=== PATIENT | male | born 1945 | race Caucasian/White ===

== ENCOUNTER 2023-04-30 10:03 | Outpatient (OUT) | payer MEDICARE, SELFPAY ==
[2023-04-30 11:01] LABS: Anion Gap 10.9; BUN Creatinine Ratio 17.6; Calcium 9.7 mg/dL (8.5-10.1); Chloride 100 mmol/L (98-107); Estimated GFR (African America >60 (>=60); Estimated GFR (Non-African Ame >60 (>=60); Glucose 111 mg/dL (74-106); Potassium 3.9 mmol/L (3.5-5.1); Sodium 136 mmol/L (136-145)
[2023-04-30 14:35] LABS: Estimated Average Glucose 120 mg/dL; Glycohemoglobin A1C 5.8 % (4.5-6.2)
== END 2023-04-30 10:04 | disposition home or self-care (01) ==
LOC: LAB 10:11
PROVIDERS: PCP Internal Medicine; Visit Provider Internal Medicine
DX: I10 Essential (primary) hypertension (principal); R73.01 Impaired fasting glucose
CPT/HCPCS: 36415; 80048; 83036

== ENCOUNTER 2023-05-03 10:56 | Outpatient (OUT) | payer MEDICARE, SELFPAY ==
--- NOTE | 2023-05-03 10:58 | US_ITS ---
The [address] [address] Patient Name: RIDGE ROLAND MRN: [id number] date: 1945 Sex: M Assigned Patient Location: [place] Current Patient Location: [place] Accession/Order Number: [id number] Exam Date: 05/03/2023 11:00 Report Date: 05/03/2023 11:47 At the request of: DOROTHY HALL Procedure: US thyroid EXAMINATION: US thyroid HISTORY: THYROID CYST E04.1 COMPARISON: No relevant comparison available. TECHNIQUE: Sonographic images of the thyroid gland were obtained. FINDINGS: The right thyroid lobe measures 4.8 x 1.8 x 1.7 cm. 3 focal subcentimeter nodules measuring up to 7 mm. The most suspicious: Right inferior. 0.7 x 0.6 x 0.5 cm. Solid, hyperechoic, wide, smooth margins, no calcifications. TR 3 The thyroid isthmus measures 2.1 mm, homogeneous. The left thyroid lobe is normal in size, contour and echotexture measuring 5.3 x 1.7 x 1.7 cm No focal nodules IMPRESSION: 7 mm right thyroid TR 3 nodule. No follow-up is required TI-RADS: The [employer] TI-RADS committee's white paper recommendations for thyroid lesions classified as TR3 (mildly suspicious) are listed below: > 1.5 cm. Follow-up ultrasound in 1, 3, and 5 years. > 2.5 cm. FNA. J. Am Madelaine Radiol 2017;[id number]. Electronically authenticated by: ELIZA THAO Date: 05/03/2023 11:47
== END 2023-05-03 10:57 | disposition home or self-care (01) ==
LOC: US 10:56
PROVIDERS: PCP Internal Medicine; Visit Provider Internal Medicine
DX: E04.1 Nontoxic single thyroid nodule (principal)
CPT/HCPCS: 76536

== ENCOUNTER 2023-10-24 13:28 | Outpatient (OUT) | payer MEDICARE, SELFPAY ==
[2023-10-24 14:04] LABS: Estimated Average Glucose 123 mg/dL; Glycohemoglobin A1C 5.9 % (4.5-6.2)
[2023-10-24 14:08] LABS: Anion Gap 11.3; Calcium 9.8 mg/dL (8.5-10.1); Carbon Dioxide 29.6 mmol/L (21.0-32.0); Chloride 99 mmol/L (98-107); Estimated GFR (African America >60 (>=60); Estimated GFR (Non-African Ame >60 (>=60); Glucose 104 mg/dL (74-106); Potassium 3.9 mmol/L (3.5-5.1); Sodium 136 mmol/L (136-145); Thyroid Stimulating Hormone 1.622 uIU/mL (0.358-3.740)
[2023-10-24 14:23] LABS: Basophils Absolute Auto 0.1 10^3/uL (0.0-0.1); Basophils Percent Auto 0.7 % (0.2-2.0); Eosinophils Absolute Auto 0.1 10^3/uL (0.0-0.7); Eosinophils Percent Auto 1.2 % (0.9-7.0); Hematocrit 46.6 % (42.0-54.0); Hemoglobin 15.6 g/dL (14.0-18.0); Immature Granulocytes Abs Auto 0.03 10^3/uL (0.00-0.03); Immature Granulocytes Pct Auto 0.4 % (0.0-0.5); Lymphocytes Absolute Auto 1.7 10^3/uL (1.2-3.8); Lymphocytes Percent Auto 23.6 % (20.5-60.0); Mean Corpuscular HGB Conc 33.5 g/dL (29.9-35.2); Mean Corpuscular Hemoglobin 31.1 pg (25.9-34.0); Mean Platelet Volume 10.9 fL (9.5-13.5); Monocytes Absolute Auto 0.7 10^3/uL (0.3-0.8); Monocytes Percent Auto 9.5 % (1.7-12.0); Neutrophils Absolute Auto 4.7 10^3/uL (1.4-6.5); Neutrophils Percent Auto 64.6 % (43.0-75.0); Platelet Count 218 10^3/uL (150-450); Red Blood Count 5.01 10^6/uL (4.70-6.10); Red Cell Distribution Width 13.5 % (11.0-15.0); White Blood Count 7.3 10^3/uL (4.0-11.0)
== END 2023-10-24 13:29 | disposition home or self-care (01) ==
LOC: LAB 13:30
PROVIDERS: PCP Internal Medicine; Visit Provider Internal Medicine
DX: R63.4 Abnormal weight loss (principal); R73.01 Impaired fasting glucose; I10 Essential (primary) hypertension; R53.83 Other fatigue
CPT/HCPCS: 36415; 80048; 83036; 84443; 85025

== ENCOUNTER 2023-12-24 09:37 | Emergency (ER) | payer MEDICARE, SELFPAY ==
[2023-12-24] VITALS (19 sets, daily range): BP systolic 153; BP diastolic 94; PULSE 60–82; RESP 8–23; TEMP 36.8; O2SAT 99; BMI 31.6
--- OUTSIDE RECORDS SUMMARY | 2023-12-24 09:47 | XMS_ITS | CCD ---
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 factors, such as anxiety, stress, or post-traumatic stress disorder (PTSD). ? Spinal cord injury, nerve injury, or other neurological conditions. ? Pelvic organ prolapse. This happens in women when organs move out of place and into the vagina. This movement can prevent the bladder and urethra from working properly. What increases the risk? The following factors may make you more likely to develop this condition: ? Age. The older you are, the higher the risk. ? Obesity. ? Being physically inactive. ? and childbirth. ? Menopause. ? Diseases that affect the nerves or spinal cord. ? Long-term, or chronic, coughing. This can increase pressure on the bladder and pelvic floor muscles. What are the signs or symptoms? Symptoms may vary depending on the type of urinary incontinence you have. They include: ? A sudden urge to urinate, and passing urine involuntarily before you can get to a bathroom (urge incontinence). ? Suddenly passing urine when doing activities that force urine to pass, such as coughing, laughing, exercising, or sneezing (stress incontinence). ? Needing to urinate often but urinating only a small amount, or constantly dribbling urine (overflow incontinence). ? Urinating because you cannot get to the bathroom in time due to a physical disability, such as arthritis or injury, or due to a communication or thinking problem, such as Alzheimer's disease (functional incontinence). How is this diagnosed? This condition may be diagnosed based on: ? Your medical history. ? A physical exam. ? Tests, such as: ? Urine tests. ? X-rays of your kidney and bladder. ? Ultrasound. ? CT scan. ? Cystoscopy. In this procedure, a health care provider inserts a tube with a light and camera (cystoscope) through the urethra and into the bladder to check for problems. ? Urodynamic testing. These tests assess how well the bladder, urethra, and sphincter can store and release urine. There are different types of urodynamic tests, and they vary depending on what the test is measuring. To help diagnose your condition, your health care provider may recommend that you keep a log of when you urinate and how much you urinate. How is this treated? Treatment for this condition depends on the type of incontinence that you have and its cause. Treatment may include: ? Lifestyle changes, such as: ? Quitting smoking. ? Maintaining a healthy weight. ? Staying active. Try to get 150 minutes of moderate-intensity exercise every week. Ask your health care provider which activities are safe for you. ? Eating a healthy diet. ? Avoid high-fat foods, like fried foods. ? Avoid refined carbohydrates like white bread and white rice. ? Limit how much alcohol and caffeine you drink. ? Increase your fiber intake. Healthy sources of fiber include beans, whole grains, and fresh fruits and vegetables. ? Behavioral changes, such as: ? Pelvic floor muscle exercises. ? Bladder training, such as lengthening the amount of time between bathroom breaks, or using the bathroom at regular intervals. ? Using techniques to suppress bladder urges. This can include distraction techniques or controlled breathing exercises. ? Medicines, such as: ? Medicines to relax the bladder muscles and prevent bladder spasms. ? Medicines to help slow or prevent the growth of a man's prostate. ? Botox injections. These can help relax the bladder muscles. ? Treatments, such as: ? Using pulses of electricity to help change bladder reflexes (electrical nerve stimulation). ? For women, using a medical economics consultant to prevent urine leaks. This is a small, tampon-like, disposable device that is inserted into the urethra. ? Injecting collagen or carbon beads (bulking agents) into the urinary sphincter. These can help thicken tissue and close the bladder opening. ? Surgery. Follow these instructions at home: Lifestyle ? Limit alcohol and caffeine. These can fill your bladder quickly and irritate it. ? Keep yourself clean to help prevent odors and skin damage. Ask your health care provider about special skin creams and cleansers that can protect the skin from urine. ? (more content not included)... Normal [facility] Urology Office/Clinic Noteon 12-14-2023 Urology Office/Clinic Note Chief Complaint Discuss Repeat Botox HPI Staff 11 month f/u to discuss repeat Botox. Previous DLS pt. Saw [facility] last. 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 Solifenacin 10mg qd and Sildenafil 50mg PRN Pt would like refill of Sildenafil. Started taking Solifenacin BID the past 3-4 days. Weak stream. Denies hesitancy. Feels empty after voiding. Wears a pad. Changes 2x/day. Will start to urinate when he stands up at times. Unable to control bladder. Getting up 4-5x/night to void for the past month. PVR 25ml (did not void prior) History of Present Illness Tests reviewed: reviewed PVR I have reviewed the previous health record information and history for this patient from Dr. Alberto and AYAN Sol. I have reviewed and verified the staff HPI to be accurate for this encounter. Review of Systems PHQ Score Initial Depression Screen Score: 0 SCORE ROS - Provider Constitutional: denies weight loss, denies hot flashes. Eyes: denies eye problems. Gastrointestinal: denies nausea, denies vomiting. Cardiovascular: denies chest pain or angina. Integumentary: no dryness Musculoskeletal: denies musculoskeletal symptoms. ENMT: denies otolaryngeal symptoms. Respiratory: no shortness of breath. Heme/Lymph: denies easy bleeding tendency, denies easy bruising tendency. Psychiatric: no confusion, no anxiety. Genitourinary: See HPI. Physical Exam Vitals & Measurements HR: 81(Peripheral) RR: 16 BP: 137/81 HT: 76 in HT: 193 cm WT: 104.5 kg WT: 229.9 lb BMI: 28.05 General Appearance: alert, no distress, well nourished, well developed male. Genitourinary: normal scrotum, normal testes, normal urethra, normal epididymis, normal vas deferens/spermatic cord. Flank Pain: none. Bladder: nonpalpable. Assessment/Plan Former Dr. Alberto pt, has been following with [facility]. 1. 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 Failed Oxybutynin, Trospium, Tolterodine, and Myrbetriq. Taking Solifenacin 10mg qd. States he leaks when he stands up at times. Does not feel he has any control over his bladder. Rarely voids on his own, just leaks constantly. Wears a pad. States urinary sxs have worsened over the past 6 months. Has had 3 lower back surgeries. Discussed pt likely has nerve damage and has lost sensation in his bladder and function in his sphincter. Educated pt on anatomy and etiologies of incontinence. Discussed bladder medication would not resolve issue. Discussed options would be penile incontinence clamp vs artificial sphincter surgery vs SNM. Discussed risks/benefits. Advised pt incontinence clamp would be a better option as there are less risks and would be more suitable for ADLs. Also advised pt would be able to d/c bladder medication. Pt would like to proceed with clamp. -Try incontinence clamp. -D/c Solifenacin 2. BPH with urinary obstruction (N40.1: Benign prostatic hyperplasia with lower urinary tract symptoms) S/P TURP 04/28/20 by NIKOLAS S/p Cysto w/ UD 12/05/21 and 12/02/20 by NIKOLAS. Not currently taking any BPH medications. 3. Incomplete bladder emptying (R39.14: Feeling of incomplete bladder emptying) PVR (cc): 12/27/21 - 94 05/30/22 - 225 (after botox) 08/31/22 - 56 12/14/23 - (random scan) No sample provided for UA today. 4. ED (erectile dysfunction) (N52.9: Male erectile dysfunction, unspecified) Viagra 100mg prn. Works well. Follow-up With When Contact Information DUC WALTERS, Homero Marie, URL Only if needed [facility] [address] [place] [address]- [phone] Additional Instructions: Patient Education Urinary Incontinence I, Lina Perkins, personally scribed for Dr. Xavier on 12/14/2023 11:01:00. . Documentation recorded by the scribe, Lina Perkins, accurately reflects the services(s) I performed and decisions made by me. Authenticated by Dr. Xavier on 12/14/2023 11:03:47. 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 [facility] Comment on above: Result Comment: Elec tronically Signed By: Homero XAVIER MD\.br\Date and Time Signed: 12/14/23 11:03 EST\.br\Electronically Co-Signed By: Lina Perkinsbr\Date and Time Co-Signed: 12/14/23 11:01 EST Consent for Treatmenton Consent for Treatment [id number]#1.00T IFF [facility] Consultation Noteon 12-10-19 Consultation Note Patient: KEILA ROLAND Age: 78 years Sex: Male : 1945 Associated Diagnoses: None Author: Stephenie Barrios PA-C Subjective Chief complaint 12/10/2023 12:26 EST middle low back pain . Patient is a 77-year-old male. He presents today for a second follow-up after undergoing bilateral L3-4 and L4-5 facet RFA. This was done on 10/08/2023. Patient never got the relief he was looking for. He still has lower back/buttock pain that he rates a 2?10/10 depending on his activities. It is worse with standing upright and being active. Better with laying down and resting but then when he wakes up in the morning it is very intense. It is a stabbing type discomfort. It affects his ambulatory status. Affects his quality life. Affects his activities and affects his ability to do things he wants to do. He is very bothered by all of this and wonders what he can do to get some relief. He did not tolerate Lyrica. It caused constipation. Per his he did not tolerate tramadol, Tylenol with codeine, or oxycodone before either. It caused intolerable side effects that she does not want to have happened to him again. Previously, he wondered about medical marijuana. He did not look into this. Health Status Allergies: Allergic Reactions (Selected) Severity Not Documented Oxybutynin- Hallucinations. OxyCODONE- Visual hallucinations., Allergies (2) Active Severity Reaction oxyCODONE Visual hallucinations oxybutynin Hallucinations Current medications: (Selected) Prescriptions Prescribed Vesicare 10 mg Tab: 10 mg = 1 tab(s), Oral, Daily, X 30 day(s), # 30 tab(s), Refills(s) 6, Pharmacy: [facility]/pharmacy #[id number], 193, cm, 05/29/23 8:59:00 EDT, Height/Length Dosing, 108.9, kg, 03/19/23 8:54:00 EDT, Weight Dosing Viagra 50 mg Tab: See Instructions, 1-2 tab(s) po 1 hr before sexual acitivity. do not exceed 2 tabs in 24 hrs., # 15 tab(s), Refills(s) 3, Pharmacy: [facility]/pharmacy #[id number], 193, cm, 08/31/22 9:11:00 EDT, Height/Length Dosing, 114.5, kg, 08/31/22 9:11:00 EDT, Weight Dosing... pregabalin 25 mg Cap: 25 mg = 1 cap(s), Oral, BID, # 60 cap(s), Refills(s) 2, Pharmacy: [facility]/pharmacy #[id number], 193, cm, 11/09/23 11:29:00 EST, Height/Length Dosing, 110, kg, 11/09/23 11:29:00 EST, Weight Dosing Documented Medications Documented Calcium 600+D oral tablet: 1 tab(s), Oral, Daily, Prophylaxis Klor-Con M20: 1 tab, Oral, Daily, Refills(s) 0, Prophylaxis Lipitor 40 mg Tab: 40 mg = 1 tab(s), Oral, Daily, Refills(s) 0, High cholesterol Vitamin B12 1000 mcg Tab: 1,000 mcg = 1 tab(s), Oral, Daily, Refills(s) 0, Prophylaxis Vitamin C 1000 mg oral tablet: 1,000 mg = 1 tab(s), Oral, Daily, Refills(s) 0, Prophylaxis allopurinol 100 mg Tab: 100 mg = 1 tab(s), Oral, Daily, Refills(s) 0, Gout pain amlodipine: 5 mg, Oral, Daily, High blood pressure aspirin 81 mg oral tablet: 81 mg = 1 tab(s), Oral, Daily, # 30 tab(s), Refills(s) 0 hydrochlorothiazide: 25 mg, Oral, Daily, High blood pressure lutein: 5MG/25MG, Oral, Daily, Prophylaxis Problem list: All Problems Hypercholesterolemia / SNOMED CT 24036344 / Confirmed Hernia, inguinal, right / SNOMED CT 403837794 / Confirmed BPH with urinary obstruction / SNOMED CT 7199250102 / Confirmed Elevated PSA / SNOMED CT 1125536589 / Confirmed Impotence / SNOMED CT 7582300598 / Confirmed Urinary frequency / SNOMED CT 607421998 / Confirmed Nocturia / SNOMED CT 168831378 / Confirmed Weak urinary stream / SNOMED CT 642710351 / Confirmed Gross hematuria / SNOMED CT 836220396 / Confirmed Anticoagulated / SNOMED CT 525093296 / Confirmed Urge incontinence / SNOMED CT 149484571 / Confirmed Chronic prostatitis / SNOMED CT 75359031 / Confirmed Dysuria / SNOMED CT 15160193 / Confirmed Urinary retention / SNOMED CT 530182418 / Confirmed BMI 31.0-31.9,adult / SNOMED CT 527636323 / Confirmed Incomplete bladder emptying / SNOMED CT 205103742 / Confirmed Post-void dribbling / SNOMED CT 731557914 / Confirmed Incontinence without sensory awareness / SNOMED CT 8213691832 / Confirmed At risk for falls / SNOMED CT 336875648 / Possible ED (erectile dysfunction) / SNOMED CT 8071325127 / Confirmed Leaking of urine / SNOMED CT 8729026729 / Confirmed Urinary incontinence / SNOMED CT 0047092343 / Confirmed Prostate cancer screening / SNOMED CT 802018400 / Confirmed Resolved: Hypertension / SNOMED CT 4909704077 Resolved: 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 Ambulating with a walker Eye: Normal conjunctiva. HENT: Normocephalic, Normal hearing. Cardiovascular: No edema. Musculoskeletal Normal range of motion. Normal strength. 5/5 lower extremity straight Pain with compression of the bilateral sacroiliac (more content not included)... [facility] Comment on above: Result Comment: Elec tronically Signed By: Stephenie Barrios PA-C\.br\Date and Time Signed: 12/10/23 12:53 EST\.br\Electronically Co-Signed By: Bert Edwards DO\.br\Date and Time Co-Signed: 12/11/23 09:21 EST Office/Clinic Note-Physician on 12-10-2023 Office/Clinic Note-Physician [id number]#1.00T IFF [facility] Patient Correspondenceon Patient Correspondence [id number]#1.00T IFF [facility] Patient Correspondence [id number]#1.00T IFF [facility] Patient History Officeon Patient History Office [id number]#1.00T IFF [facility] Consent for Treatmenton Consent for Treatment [id number]#1.00 TIFF [facility] Consultation Noteon 11-09-19 24 Consultation Note Patient: KEILA ROLAND Age: 78 years Sex: Male : 1945 Associated Diagnoses: None Author: Stephenie Barrios PA-C Subjective Chief complaint 11/09/2023 11:14 EST Lower back pain . Patient is a 77-year-old male. He presents today for follow-up after undergoing bilateral L3-4 and L4-5 facet RFA. This was done on 10/08/2023. Unfortunately, he has not noticed much by the way of relief. He has lower back pain that is a 10/10 when he first gets up in the morning. Throughout the day it does better at a 3/10. He states that it is the same as before. He is discouraged that the RFA did not help. He states that he needs something to help with the pain. He wonders about medical marijuana. Upon review of previous medications it looks as though we had him on Lyrica a few months ago but he failed to call for a refill so he is no longer taking this. He states that his pain affects his ambulatory status. Affects his quality of life. Affects his activities. Health Status Allergies: Allergic Reactions (Selected) Severity Not Documented Oxybutynin- Hallucinations. OxyCODONE- Visual hallucinations., Allergies (2) Active Reaction oxybutynin Hallucinations oxyCODONE Visual hallucinations Current medications: (Selected) Prescriptions Prescribed Vesicare 10 mg Tab: 10 mg = 1 tab(s), Oral, Daily, X 30 day(s), # 30 tab(s), Refills(s) 6, Pharmacy: [facility]/pharmacy #[id number], 193, cm, 05/29/23 8:59:00 EDT, Height/Length Dosing, 108.9, kg, 03/19/23 8:54:00 EDT, Weight Dosing Viagra 50 mg Tab: See Instructions, 1-2 tab(s) po 1 hr before sexual acitivity. do not exceed 2 tabs in 24 hrs., # 15 tab(s), Refills(s) 3, [id number] 193, cm, 08/31/22 9:11:00 EDT, Height/Length Dosing, 114.5, kg, 08/31/22 9:11:00 EDT, Weight Dosing... pregabalin 25 mg Cap: 25 mg = 1 cap(s), Oral, BID, # 60 cap(s), Refills(s) 2, Pharmacy: [facility]/pharmacy #[id number], 193, cm, 11/09/23 11:29:00 EST, Height/Length Dosing, 110, kg, 11/09/23 11:29:00 EST, Weight Dosing Documented Medications Documented Calcium 600+D oral tablet: 1 tab(s), Oral, Daily, Prophylaxis Klor-Con M20: 1 tab, Oral, Daily, Refills(s) 0, Prophylaxis Lipitor 40 mg Tab: 40 mg = 1 tab(s), Oral, Daily, Refills(s) 0, High cholesterol Vitamin B12 1000 mcg Tab: 1,000 mcg = 1 tab(s), Oral, Daily, Refills(s) 0, Prophylaxis Vitamin C 1000 mg oral tablet: 1,000 mg = 1 tab(s), Oral, Daily, Refills(s) 0, Prophylaxis allopurinol 100 mg Tab: 100 mg = 1 tab(s), Oral, Daily, Refills(s) 0, Gout pain amlodipine: 5 mg, Oral, Daily, High blood pressure aspirin 81 mg oral tablet: 81 mg = 1 tab(s), Oral, Daily, # 30 tab(s), Refills(s) 0 hydrochlorothiazide: 25 mg, Oral, Daily, High blood pressure lutein: 5MG/25MG, Oral, Daily, Prophylaxis Problem list: All Problems Hypercholesterolemia / SNOMED CT 15332713 / Confirmed Hernia, inguinal, right / SNOMED CT 944018178 / Confirmed BPH with urinary obstruction / SNOMED CT 8712015515 / Confirmed Elevated PSA / SNOMED CT 7812564974 / Confirmed Impotence / SNOMED CT 2709121070 / Confirmed Urinary frequency / SNOMED CT 600820125 / Confirmed Nocturia / SNOMED CT 235164452 / Confirmed Weak urinary stream / SNOMED CT 158681265 / Confirmed Gross hematuria / SNOMED CT 505553389 / Confirmed Anticoagulated / SNOMED CT 661005684 / Confirmed Urge incontinence / SNOMED CT 181017876 / Confirmed Chronic prostatitis / SNOMED CT 87925113 / Confirmed Dysuria / SNOMED CT 25428591 / Confirmed Urinary retention / SNOMED CT 633043283 / Confirmed BMI 31.0-31.9,adult / SNOMED CT 427778487 / Confirmed Incomplete bladder emptying / SNOMED CT 730625454 / Confirmed Post-void dribbling / SNOMED CT 924815919 / Confirmed Incontinence without sensory awareness / SNOMED CT 2515095227 / Confirmed At risk for falls / SNOMED CT 423959492 / Possible ED (erectile dysfunction) / SNOMED CT 5615354768 / Confirmed Leaking of urine / SNOMED CT 4106172606 / Confirmed Urinary incontinence / SNOMED CT 3334695551 / Confirmed Prostate cancer screening / SNOMED CT 105042129 / Confirmed Resolved: Hypertension / SNOMED CT 3616041817 Resolved: 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 Eye: Normal conjunctiva. HENT: Normocephalic, Normal hearing. Cardiovascular: No edema. Musculoskeletal Normal range of motion. Normal strength. 5/5 strength Ambulating with a walker Integumentary: Warm, Dry, [place]. Injection sites well-healed Neurologic: Alert, Oriented. Psychiatric: Cooperative, Appropriate mood & affect. Impression and Plan Patient is a 78-year-old male with a past medical history significant for postlaminectomy syndrome, chronic pain, and lumbar spondylosis (more content not included)... [facility] Comment on above: Result Comment: Elec tronically Signed By: Stephenie Barrios PA-C\.br\Date and Time Signed: 11/09/23 11:45 EST Legal Correspondence Officeo n 11-09-2023 Legal Correspondence Office [id number]#1.00 TIFF [facility] Office/Clinic Note-Physician on 11-09-2023 Office/Clinic Note-Physician [id number]#1.00 TIFF Normal [facility] Patient Correspondenceon Patient Correspondence [id number]#1.00 TIFF [facility] Patient Correspondence [id number]#1.00 TIFF [facility] Patient Correspondence [id number]#1.00 TIFF [facility] Patient Correspondence [id number]#1.00 TIFF [facility] Patient History Officeon Patient History Office [id number]#1.00 TIFF [facility] Consent for Procedure/Surger yon 10-08-2023 Consent for Procedure/Surgery [id number]#1.00 TIFF Normal [facility] Consent for Treatmenton -0 Consent for Treatment [id number]#1.00 TIFF [facility] Discharge Instructionson Discharge Instructions [id number]#1.00 TIFF [facility] IntraOperative Documentson 1 12-09-2022 IntraOperative Documents [id number]#1.00 TIFF [facility] Main OR Intraoperative Recor don 10-08-2023 Main OR Intraoperative Record IntraOp Document Type [facility] Summary Primary Physician: Bib Sanchez MD Finalized Date/Time: 10/08/23 08:08:45 Pt. Name: RIDGE ROLAND [place]/Sex: 1945 Male Med Rec #: [id number] Physician: Fabi WALTERS, Bib Jackson [employer] #: [id number] Pt. Type: P Room/Bed: / Admit/Disch: 10/08/23 06:48:57 - Institution: Case Times FTPM Entry 1 Patient Times In Room 10/08/23 07:54:00 Out Room 10/08/23 08:09:00 Procedure Times Start 10/08/23 07:57:00 Stop 10/08/23 08:08:00 Anesthesia Times Last Modified By: Robin JENNINGS, Tomasa Davidson 10/08/23 08:08:29 Case Attendance FTPM Entry 1 Entry 2 Entry 3 Case Attendee Fabi WALTERS, Bib Kelly RN, Tomasa Garrett RN, Savannah Ceballos Role Performed Surgeon - Primary Weather Analyst - Primary Scrub - Primary Time In 10/08/23 07:54:00 10/08/23 07:54:00 10/08/23 07:54:00 Time Out 10/08/23 08:09:00 10/08/23 08:09:00 10/08/23 08:09:00 Procedure LUMBAR RADIO FREQUENCY LUMBAR RADIO FREQUENCY LUMBAR RADIO FREQUENCY ABLATION(Bilateral) ABLATION(Bilateral) ABLATION(Bilateral) Comments Last Modified By: Robin JENNINGS, Tmoasa Kelly RN, Tomasa Alexander RN 10/08/23 08:08:31 10/08/23 08:08:31 10/08/23 08:08:31 Entry 4 Case Attendee Adry Smyth (R) Role Performed Engineering Surveyor Time In 10/08/23 07:54:00 Time Out 10/08/23 08:09:00 Procedure LUMBAR RADIO FREQUENCY ABLATION(Bilateral) Comments Last Modified By: Tomasa Kelly RN 10/08/23 08:08:31 Perioperative Protocols FTPM Pre-Care Text: Implements protective measures prior to operative or invasive procedure, confirms identity before the operative or invasive procedure, verifies operative procedure, surgical site, and laterality Entry 1 Procedure(s) LUMBAR RADIO FREQUENCY Patient Identity Birthday, ID Band ABLATION(Bilateral) Verified (select at Check, Patient least 2): Participation Consents / H and P HandP, Surgery/Procedure Operative Site Present Verified Consent Marking Verified Surgical Site Yes Laterality Verified Yes Verified Procedure Verified Yes Correct Patient Yes Position Verified Availability Equipment, Medication, Prep Dry Yes Verified (If X-ray Applicable) PreOp Antibiotic No Time Out Tomasa Kelly RN, Given Participants Gerry JENNINGS, Fabi Roldan MD, Soni Bateman RT(R), Adry Time Out Complete 10/08/23 07:54:00 Outcomes Met? Yes Last Modified By: Tomasa Kelly RN 10/08/23 07:57:50 Post-Care Text: The patient is free from signs and symptoms of injury caused by extraneous objects Allergy Information FTPM Pre-Care Text: Verifies allergies Entry 1 Allergies Reviewed? Yes Allergies Reviewed Self/Patient With Outcomes Met? Yes Last Modified By: Tomasa Kelly RN 10/08/23 07:31:53 Post-Care Text: The patient received appropriate medication(s) safely administered during the perioperative period Surgical Procedures FTPM Entry 1 Procedure Description Procedure LUMBAR RADIO FREQUENCY Modifiers Bilateral ABLATION Surgeon Description L3/4 + L4/5 RFA Primary Procedure Yes Primary Surgeon Fabi WALTERS, Bib Jackson Start 10/08/23 07:57:00 Stop 10/08/23 08:08:00 Anesthesia Type None Surgical Service Pain Management Wound Class 1 - Clean Last Modified By: Tomasa Kelly RN 10/08/23 08:08:33 General Case Data FTPM Pre-Care Text: Classifies surgical wound, implements aseptic technique, initiates traffic control Entry 1 Case Information OR Pain Proc Room Case Level Level 2 Wound Class 1 - Clean Specialty Pain Management Preop Diagnosis M47.816 Postop Same As Preop Yes Postop Diagnosis M47.816 Outcomes Met? Yes Last Modified By: Tomasa Kelly RN 10/08/23 07:58:05 Post-Care Text: The patient is free from signs and symptoms of infection Skin Assessment (Pre Procedure) FTPM Pre-Care Text: Implements protective measures to prevent skin/ tissue injury due to thermal or mechanical sources Evaluates for signs and symptoms of physical injury to skin and tissue Entry 1 Skin Integrity Intact, Benicia, Warm, and Skin Abnormality No Dry Outcomes Met? Yes Last Modified By: Tomasa Kelly RN 10/08/23 07:58:13 Post-Care Text: The patient is free from signs and symptoms of injury caused by extraneous objects Patient Positioning FTPM Pre-Care Text: Identifies physical alterations that require additional precautions for procedure-specific positioning, verifies presence of prosthetics or corrective devices, positions the patient, evaluates the patient for signs and symptoms of injury as a result of positioning Entry 1 Procedure LUMBAR RADIO FREQUENCY Body Position Prone ABLATION(Bilateral) Feet Uncrossed? Yes Left Arm Position Resting at Side Right Arm Position Resting at Side Left Leg Position Extended Right Leg Position Extended Positioning Device Pillow Under Head Large, Safety Strap, Pillow Large Under Knees Press Points Checked Yes By Neto (more content not included)... Normal [facility] Main OR Preoperative Recordo n 10-08-2023 Main OR Preoperative Record Holding Area Document Type FTPM Summary Primary Physician: Bib Sanchez MD Finalized Date/Time: 10/08/23 07:19:53 Pt. Name: RIDGE ROLAND/Sex: 1945 Male Med Rec #: [id number] Physician: Bib Sanchez MD Financial #: [id number] Pt. Type: P Room/Bed: / Admit/Disch: 10/08/23 06:48:57 - Institution: Case Times Holding FTPM Pre-Care Text: Verifies consent for planned procedure, identifies individual values and wishes concerning care, includes family members in perioperative teaching Secures patient's records' belongings, and valuables, maintains patient's dignity and privacy, and maintains patient confidentiality Entry 1 In Holding 10/08/23 07:17:00 Outcomes Met? Yes Last Modified By: Emigdio JENNINGS, Sneha Gao 10/08/23 07:18:03 Post-Care Text: The patient participates in decisions affecting his or her perioperative plan of care The patient's right to privacy is maintained Surgery Checklist FTPM Entry 1 Patient Birthday, ID Band Procedure History and Physical, Identification: Check, Patient Verification: Surgical Consent, With Participation Patient NPO after Midnight: Yes Date/Time: 10/08/23 07:18:00 Results Reviewed N/A Personal Items: Cataract Lens Implant, Comments: Glasses, Jewelry Personal Items Pt. wearing a Fitbit, Complaints of Pain: Yes Comment: two rings and glasses. He has history of bilateral cataract lens implants. Pain Comment: 06/14 lower back pain Operative Site Yes Marking: Marked By: Dr. Sanchez Location: bilateral L3-L5 Availability Equipment, X-Ray Verified: Does Patient Smoke No Patient states Yes Comment - Adult -Itzel postop adult Supervision supervision available Case Cancelled in No Holding Area see comments below for reason Last Modified By: Sneha Beal RN 10/08/23 07:19:52 Finalized By: Sneha Beal RN Document Signatures Signed By: Sneha Beal RN 10/08/23 07:19 Normal [facility] Operative Reporton 3 Operative Report Patient: KEILA ROLAND Age: 78 years Sex: Male : 1945 Associated Diagnoses: None Author: Fabi WALTERS, Bib Jackson Procedure Procedure: Lumbar Facet Medial Branch Radiofrequency Ablation to the Bilateral L3/4 and L4/5 Facet Joints with Fluoroscopic Guidance 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 The procedure, including risks benefits and alternatives was discussed with the patient. The patient agreed to proceed. Informed consent was obtained and the site(s) marked. The patient was brought to the procedure room and placed in the prone position with padding under the abdomen to reduce lumbar lordosis. Time out was performed. The back was prepped and draped in sterile fashion with Chloraprep. Skin and subcutaneous tissues were anesthetized with 6 mL of Lidocaine 2% through a 25G needle. 20G RFA 10mm active tip needles were then advanced under fluoroscopic guidance to the locations of the medial branch nerves to the L3/4 and L4/5 facet joints on the right. Impedances were within normal parameters. Motor stimulation at 2mA at each level was negative for any lower extremity stimulation. Impedances were within normal parameters. 6mL of 2% lidocaine and 10mg PF dexamethasone (10mg/mL) were then injected through the needles in equally divided doses. Radiofrequency ablation then took place at 80 degrees Celsius for 80 seconds x2. The needles were removed and the procedure was repeated on the left side with the identical technique and medications. [place] were removed and bandages applied. The patient was brought to the recovery area in stable condition and then monitored for an appropriate period of time. The patient was discharged home in good condition with post-procedure instructions. No apparent complications. Epidural injection procedure Physical Exam: vital signs Vital Signs 10/08/2023 7:16 EST Heart Rate Monitored 61 bpm SpO2 95 % 10/08/2023 7:16 EST Temperature Axillary 36.6 DegC 10/08/2023 7:16 EST Systolic Blood Pressure 162 mmHg HI Diastolic Blood Pressure 91 mmHg HI Mean Arterial Pressure, Monitered 115 mmHg 10/08/2023 7:12 EST Respiratory Rate 15 br/min . Normal [facility] Comment on above: Result Comment: Elec tronically Signed By: Fabi WALTERS, Bib Jackson\.br\Date and Time Signed: 10/08/23 08:08 EST Patient Correspondenceon Patient Correspondence [id number]#1.00T IFF Normal [facility] Insurance Correspondence Off iceon 09-21-2023 Insurance Correspondence Office [id number]#2.00 TIFF [facility] Consent for Treatmenton 09-05 Consent for Treatment [id number]#1.00 TIFF [facility] Consultation Noteon 09-14-20 Consultation Note Patient: KEILA ROLAND Age: 78 years Sex: Male : 1945 Associated Diagnoses: None Author: Stephenie Barrios PA-C Subjective Chief complaint 09/14/2023 7:47 EST low back pain . Patient is a 77-year-old male. He presents today for follow-up after undergoing his second bilateral L3-4 and L4-5 facet medial branch block. This was done on 09/04/2023 and he states gave him 80% relief for a day. His states that after the injection he did not have any pain for the whole day and was doing much better. Patient's first milligrams block was done on 08/07/2023 and gave significant response as well. Patient has done very well after both medial branch blocks. He is eager to try to get some relief of his low back pain. He rates it a 2?8/10 depending on what he is doing. If he is sitting it is a 2/10. If he is walking it is an 8/10. Unfortunate, thus far all other reasonable conservative treatments have failed so he is eager to get some long-term relief. Health Status Allergies: Allergic Reactions (Selected) Severity Not Documented Oxybutynin- Hallucinations. OxyCODONE- Visual hallucinations., Allergies (2) Active Reaction oxybutynin Hallucinations oxyCODONE Visual hallucinations Current medications: (Selected) Prescriptions Prescribed Vesicare 10 mg Tab: 10 mg = 1 tab(s), Oral, Daily, X 30 day(s), # 30 tab(s), Refills(s) 6, Pharmacy: [facility]/pharmacy #[id number], 193, cm, 05/29/23 8:59:00 EDT, Height/Length Dosing, 108.9, kg, 03/19/23 8:54:00 EDT, Weight Dosing Viagra 50 mg Tab: See Instructions, 1-2 tab(s) po 1 hr before sexual acitivity. do not exceed 2 tabs in 24 hrs., # 15 tab(s), Refills(s) 3, Pharmacy: [facility]/pharmacy #[id number], 193, cm, 08/31/22 9:11:00 EDT, Height/Length Dosing, 114.5, kg, 08/31/22 9:11:00 EDT, Weight Dosing... Documented Medications Documented Calcium 600+D oral tablet: 1 tab(s), Oral, Daily, Prophylaxis Klor-Con M20: 1 tab, Oral, Daily, Refills(s) 0, Prophylaxis Lipitor 40 mg Tab: 40 mg = 1 tab(s), Oral, Daily, Refills(s) 0, High cholesterol Vitamin B12 1000 mcg Tab: 1,000 mcg = 1 tab(s), Oral, Daily, Refills(s) 0, Prophylaxis Vitamin C 1000 mg oral tablet: 1,000 mg = 1 tab(s), Oral, Daily, Refills(s) 0, Prophylaxis allopurinol 100 mg Tab: 100 mg = 1 tab(s), Oral, Daily, Refills(s) 0, Gout pain amlodipine: 5 mg, Oral, Daily, High blood pressure aspirin 81 mg oral tablet: 81 mg = 1 tab(s), Oral, Daily, # 30 tab(s), Refills(s) 0 hydrochlorothiazide: 25 mg, Oral, Daily, High blood pressure lutein: 5MG/25MG, Oral, Daily, Prophylaxis Problem list: All Problems Hypercholesterolemia / SNOMED CT 59255685 / Confirmed Hernia, inguinal, right / SNOMED CT 956274930 / Confirmed BPH with urinary obstruction / SNOMED CT 9929621340 / Confirmed Elevated PSA / SNOMED CT 4835003884 / Confirmed Impotence / SNOMED CT 5968830808 / Confirmed Urinary frequency / SNOMED CT 227562194 / Confirmed Nocturia / SNOMED CT 764582363 / Confirmed Weak urinary stream / SNOMED CT 212620480 / Confirmed Gross hematuria / SNOMED CT 450414058 / Confirmed Anticoagulated / SNOMED CT 216451827 / Confirmed Urge incontinence / SNOMED CT 450260825 / Confirmed Chronic prostatitis / SNOMED CT 06664102 / Confirmed Dysuria / SNOMED CT 58052638 / Confirmed Urinary retention / SNOMED CT 129782200 / Confirmed BMI 31.0-31.9,adult / SNOMED CT 697011392 / Confirmed Incomplete bladder emptying / SNOMED CT 396632289 / Confirmed Post-void dribbling / SNOMED CT 910962604 / Confirmed Incontinence without sensory awareness / SNOMED CT 0372515366 / Confirmed At risk for falls / SNOMED CT 447202393 / Possible ED (erectile dysfunction) / SNOMED CT 6825841879 / Confirmed Leaking of urine / SNOMED CT 2149422712 / Confirmed Urinary incontinence / SNOMED CT 6296342823 / Confirmed Prostate cancer screening / SNOMED CT 774457001 / Confirmed Resolved: Hypertension / SNOMED CT 3794330570 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 Eye: Normal conjunctiva. HENT: Normocephalic, Normal hearing. Cardiovascular: No edema. Musculoskeletal Normal range of motion. Normal strength. Pain with compression of bilateral lumbar facet joints Increased low back pain with bilateral facet loading Integumentary: Warm, Dry, Benicia. Injection site well-healed Neurologic: Alert, Oriented. Psychiatric: Cooperative, Appropriate mood & affect. Results Review Lumbar MRI report once again reviewed Impression and Plan Patient is a 77-year-old male with a past medical history significant cannot for lumbar spondylosis, postlaminectomy syndrome, and chronic low back pain. Patient underwent his second bilateral L3-4 and L4-5 facet med (more content not included)... Normal [facility] Comment on above: Result Comment: Elec tronically Signed By: Stephenie Barrios PA-C\.br\Date and Time Signed: 09/14/23 08:14 EST\.br\Electronically Co-Signed By: Fabi WALTERS, Bib Jackson\.br\Date and Time Co-Signed: 09/24/23 12:00 EST Office/Clinic Note-Physician on 09-14-2023 Office/Clinic Note-Physician [id number]#1.00 TIFF Normal [facility] Patient Correspondenceon Patient Correspondence [id number]#1.00 TIFF Normal [facility] Patient Correspondence [id number]#1.00 TIFF Normal [facility] Patient Correspondence [id number]#1.00 TIFF Normal [facility] Patient History Officeon Patient History Office [id number]#1.00 TIFF Normal [facility] Consent for Procedure/Surger yon 09-04-2023 Consent for Procedure/Surgery [id number]#1.00 TIFF Normal [facility] Consent for Treatmenton 08-07 Consent for Treatment [id number]#1.00 TIFF Normal [facility] Discharge Instructionson Discharge Instructions [id number]#1.00 TIFF Normal [facility] IntraOperative Documentson 1 IntraOperative Documents [id number]#1.00 TIFF Normal [facility] Main OR Intraoperative Recor don 09-04-2023 Main OR Intraoperative Record IntraOp Document Type FTPM Summary Primary Physician: Bib Sanchez MD Finalized Date/Time: 09/04/23 10:36:25 Pt. Name: RIDGE ROLAND John /Sex: 1945 Male Med Rec #: [id number] Physician: Bib Sanchez MD Financial #: [id number] Pt. Type: P Room/Bed: / Admit/Disch: 09/04/23 09:32:42 - Institution: Case Times FTPM Entry 1 Patient Times In Room 09/04/23 10:30:00 Out Room 09/04/23 10:37:00 Procedure Times Start 09/04/23 10:33:00 Stop 09/04/23 10:36:00 Anesthesia Times Last Modified By: Tomasa Kelly RN 09/04/23 10:36:09 Case Attendance FTPM Entry 1 Entry 2 Entry 3 Case Attendee Bib Sanchez MD, RN, Tomasa Garrett RN, Savannah Lin Role Performed Surgeon - Primary Weather Analyst - Primary Scrub - Primary Time In 09/04/23 10:30:00 09/04/23 10:30:00 09/04/23 10:30:00 Time Out 09/04/23 10:37:00 09/04/23 10:37:00 09/04/23 10:37:00 Procedure MEDIAL BRANCH MEDIAL BRANCH MEDIAL BRANCH BLOCK(Bilateral) BLOCK(Bilateral) BLOCK(Bilateral) Comments Last Modified By: Robin JENNINGS, Tomasa Kelly RN, Tomasa Alexander RN 09/04/23 10:36:10 09/04/23 10:36:10 09/04/23 10:36:10 Entry 4 Case Attendee Scott Craig Role Performed Engineering Surveyor Time In 09/04/23 10:30:00 Time Out 09/04/23 10:37:00 Procedure MEDIAL BRANCH BLOCK(Bilateral) Comments Last Modified By: Tomasa Kelly RN 09/04/23 10:36:10 Perioperative Protocols FTPM Pre-Care Text: Implements protective measures prior to operative or invasive procedure, confirms identity before the operative or invasive procedure, verifies operative procedure, surgical site, and laterality Entry 1 Procedure(s) MEDIAL BRANCH Patient Identity Birthday, ID Band BLOCK(Bilateral) Verified (select at Check, Patient least 2): Participation Consents / H and P HandP, Surgery/Procedure Operative Site Present Verified Consent Marking Verified Surgical Site Yes Laterality Verified Yes Verified Procedure Verified Yes Correct Patient Yes Position Verified Availability Equipment, Medication, Prep Dry Yes Verified (If X-ray Applicable) PreOp Antibiotic No Time Out Tomasa Kelly RN, Given Participants Gerry JENNINGS, Fabi Roldan MD, Kiara Bateman Bryce Time Out Complete 09/04/23 10:30:00 Outcomes Met? Yes Last Modified By: Tomasa Kelly RN 09/04/23 10:30:55 Post-Care Text: The patient is free from signs and symptoms of injury caused by extraneous objects Allergy Information FTPM Pre-Care Text: Verifies allergies Entry 1 Allergies Reviewed? Yes Allergies Reviewed Self/Patient With Outcomes Met? Yes Last Modified By: Tomasa Kelly RN 09/04/23 10:28:25 Post-Care Text: The patient received appropriate medication(s) safely administered during the perioperative period Surgical Procedures FTPM Entry 1 Procedure Description Procedure MEDIAL BRANCH BLOCK Modifiers Bilateral Surgeon Description L3/4, L4/5 MBB Primary Procedure Yes Primary Surgeon Bib Sanchez MD Start 09/04/23 10:33:00 Stop 09/04/23 10:36:00 Anesthesia Type None Surgical Service Pain Management Wound Class 1 - Clean Last Modified By: Tomasa Kelly RN 09/04/23 10:36:13 General Case Data FTPM Pre-Care Text: Classifies surgical wound, implements aseptic technique, initiates traffic control Entry 1 Case Information OR Pain Proc Room Case Level Level 2 Wound Class 1 - Clean Specialty Pain Management Preop Diagnosis M47.816 Postop Same As Preop Yes Postop Diagnosis M47.816 Outcomes Met? Yes Last Modified By: Tomasa Kelly RN 09/04/23 10:31:09 Post-Care Text: The patient is free from signs and symptoms of infection Skin Assessment (Pre Procedure) FTPM Pre-Care Text: Implements protective measures to prevent skin/ tissue injury due to thermal or mechanical sources Evaluates for signs and symptoms of physical injury to skin and tissue Entry 1 Skin Integrity Intact, [place], Warm, and Skin Abnormality No Dry Outcomes Met? Yes Last Modified By: Tomasa Kelly RN 09/04/23 10:28:34 Post-Care Text: The patient is free from signs and symptoms of injury caused by extraneous objects Patient Positioning FTPM Pre-Care Text: Identifies physical alterations that require additional precautions for procedure-specific positioning, verifies presence of prosthetics or corrective devices, positions the patient, evaluates the patient for signs and symptoms of injury as a result of positioning Entry 1 Procedure MEDIAL BRANCH Body Position Prone BLOCK(Bilateral) Feet Uncrossed? Yes Left Arm Position Resting at Side Right Arm Position Resting at Side Left Leg Position Extended Right Leg Position Extended Positioning Device Pillow Under Head Large, Safety Strap, Pillow Large Under Knees Press Points Checked Yes By Tomasa Kelly RN Outcomes Met? Yes Last Modified By: Tomasa Kelly RN 09/04/23 10:31:36 Post-Car (more content not included)... Normal [facility] Main OR Preoperative Recordo n 09-04-2023 Main OR Preoperative Record Holding Area Document Type FTPM Summary Primary Physician: Bib Sanchez MD Finalized Date/Time: 09/04/23 10:17:31 Pt. Name: RIDGE ROLAND D.O.B./Sex: 1945 Male Med Rec #: [id number] Physician: Bib Sanchez MD Financial #: [id number] Pt. Type: P Room/Bed: / Admit/Disch: 09/04/23 09:32:42 - Institution: Case Times Holding FTPM Pre-Care Text: Verifies consent for planned procedure, identifies individual values and wishes concerning care, includes family members in perioperative teaching Secures patient's records' belongings, and valuables, maintains patient's dignity and privacy, and maintains patient confidentiality Entry 1 In Holding 09/04/23 09:48:00 Outcomes Met? Yes Last Modified By: Sharee Dominguez RN 09/04/23 09:48:04 Post-Care Text: The patient participates in decisions affecting his or her perioperative plan of care The patient's right to privacy is maintained Surgery Checklist FTPM Entry 1 Patient Birthday, ID Band Procedure History and Physical, Identification: Check, Patient Verification: Surgical Consent, With Participation Patient NPO after Midnight: n/a Date/Time: 09/04/23 08:00:00 Results Reviewed coffee Personal Items: Cataract Lens Implant, Comments: Glasses, Jewelry Personal Items 2 rings, fit bit, Complaints of Pain: Yes Comment: bilateral cataract surgery Pain Comment: 04/14 lower back Operative Site Yes Marking: Marked By: operative site marked Location: bilateral L3/L4 L4/L5 by Dr. Sanchez Availability Equipment, X-Ray Verified: Does Patient Smoke No Patient states Yes Comment - Adult Dayan-spouse postop adult Supervision supervision available Case Cancelled in No Holding Area see comments below for reason Last Modified By: Sharee Dominguez RN 09/04/23 09:50:19 Finalized By: Sharee Dominguez RN Document Signatures Signed By: Sharee Dominguez RN 09/04/23 10:17 Normal [facility] Operative Reporton 3 Operative Report Patient: KEILA ROLAND Age: 77 years Sex: Male : 1945 Associated Diagnoses: None Author: Fabi WALTERS, Bib Jackson Procedure Procedure: Lumbar Facet Medial Branch Blocks to the Bilateral L3/4 and L4/5 Facet Joints with Fluoroscopic Guidance 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 The procedure, including risks benefits and alternatives was discussed with the patient. The patient agreed to proceed. Informed consent was obtained and the site(s) marked. The patient was brought to the procedure room and placed in the prone position with padding under the abdomen to reduce lumbar lordosis. Time out was performed. The back was prepped and draped in sterile fashion with Chloraprep. Skin and subcutaneous tissues were anesthetized with 6 mL of Lidocaine 2% through a 25G needle. 22G spinal needles were then advanced under fluoroscopic guidance to the locations of the medial branch nerves to the bilateral L3/4 and L4/5 facet joints. 0.1 mL of Isovue contrast was injected at each level demonstrating appropriate spread without vascular uptake. After confirmation of negative aspiration, 0.5mL of 0.5% bupivacaine was injected through each of the six needles. The needles were removed and bandages applied. The patient was brought to the recovery area in stable condition and then monitored for an appropriate period of time. The patient was discharged home in good condition with post-procedure instructions. No apparent complications. Epidural injection procedure Physical Exam: vital signs Vital Signs 09/04/2023 9:57 EDT Heart Rate Monitored 65 bpm SpO2 95 % 09/04/2023 9:56 EDT Systolic Blood Pressure 154 mmHg HI Diastolic Blood Pressure 87 mmHg Mean Arterial Pressure, Monitered 109 mmHg 09/04/2023 9:56 EDT Temperature Axillary 36.7 DegC 09/04/2023 9:55 EDT Respiratory Rate 16 br/min . Normal [facility] Comment on above: Result Comment: Elec tronically Signed By: Fabi WALTERS, Bib Jackson\.br\Date and Time Signed: 09/04/23 10:36 EDT Consent for Treatmenton 08-06 Consent for Treatment [id number]#1.00T IFF Normal [facility] Consultation Noteon 08-28-20 Consultation Note Patient: KEILA ROLAND Age: 77 years Sex: Male : 1945 Associated Diagnoses: None Author: Bib Sanchez MD Subjective Chief complaint 08/28/2023 7:51 EDT lower back pain . 77-year-old gentleman following up from bilateral L3-4 and L4-5 facet blocks on 08/07/2023. The patient reports 85% immediate relief of his severe low back pain directly following the procedure. The relief lasted for 4 hours. During that period of time he was able to stand, bend, twist and getting out of the car without any significant pain. Those activities are very painful for the patient typically. The pain has returned to baseline. No apparent complications from the procedure. His pain rates as an 8/10 on the numeric rating scale. ZACARIAS is 33. He and his are here today to discuss this further treatment options. Denies any radiating component to the pain. Health Status Allergies: Allergic Reactions (All) Severity Not Documented Oxybutynin- Hallucinations. OxyCODONE- Visual hallucinations. Canceled/Inactive Reactions (All) Severity Not Documented Sulfa drugs- Unknown. Current medications: (Selected) Prescriptions Prescribed Vesicare 10 mg Tab: 10 mg = 1 tab(s), Oral, Daily, X 30 day(s), # 30 tab(s), Refills(s) 6, Pharmacy: [facility]/pharmacy #[id number], 193, cm, 05/29/23 8:59:00 EDT, Height/Length Dosing, 108.9, kg, 03/19/23 8:54:00 EDT, Weight Dosing Viagra 50 mg Tab: See Instructions, 1-2 tab(s) po 1 hr before sexual acitivity. do not exceed 2 tabs in 24 hrs., # 15 tab(s), Refills(s) 3, Pharmacy: [facility]/pharmacy #[id number], 193, cm, 08/31/22 9:11:00 EDT, Height/Length Dosing, 114.5, kg, 08/31/22 9:11:00 EDT, Weight Dosing... Documented Medications Documented Calcium 600+D oral tablet: 1 tab(s), Oral, Daily, Prophylaxis Klor-Con M20: 1 tab, Oral, Daily, Refills(s) 0, Prophylaxis Lipitor 40 mg Tab: 40 mg = 1 tab(s), Oral, Daily, Refills(s) 0, High cholesterol Vitamin B12 1000 mcg Tab: 1,000 mcg = 1 tab(s), Oral, Daily, Refills(s) 0, Prophylaxis Vitamin C 1000 mg oral tablet: 1,000 mg = 1 tab(s), Oral, Daily, Refills(s) 0, Prophylaxis allopurinol 100 mg Tab: 100 mg = 1 tab(s), Oral, Daily, Refills(s) 0, Gout pain amlodipine: 5 mg, Oral, Daily, High blood pressure aspirin 81 mg oral tablet: 81 mg = 1 tab(s), Oral, Daily, # 30 tab(s), Refills(s) 0 hydrochlorothiazide: 25 mg, Oral, Daily, High blood pressure lutein: 5MG/25MG, Oral, Daily, Prophylaxis Problem list: All Problems Anticoagulated / SNOMED CT 023330717 / Confirmed At risk for falls / SNOMED CT 197866746 / Possible BMI 31.0-31.9,adult / SNOMED CT 613616451 / Confirmed BPH with urinary obstruction / SNOMED CT 4948134238 / Confirmed Chronic prostatitis / SNOMED CT 00908645 / Confirmed Dysuria / SNOMED CT 32369378 / Confirmed ED (erectile dysfunction) / SNOMED CT 2053657918 / Confirmed Elevated PSA / SNOMED CT 7912353182 / Confirmed Gross hematuria / SNOMED CT 002888881 / Confirmed Hernia, inguinal, right / SNOMED CT 037231759 / Confirmed Hypercholesterolemia / SNOMED CT 52559434 / Confirmed Impotence / SNOMED CT 2131219026 / Confirmed Incomplete bladder emptying / SNOMED CT 488262127 / Confirmed Incontinence without sensory awareness / SNOMED CT 7594056296 / Confirmed Leaking of urine / SNOMED CT 4700326120 / Confirmed Nocturia / SNOMED CT 956598018 / Confirmed Post-void dribbling / SNOMED CT 547317413 / Confirmed Prostate cancer screening / SNOMED CT 358332250 / Confirmed Urge incontinence / SNOMED CT 647795938 / Confirmed Urinary frequency / SNOMED CT 403512218 / Confirmed Urinary incontinence / SNOMED CT 1162532084 / Confirmed Urinary retention / SNOMED CT 313510003 / Confirmed Weak urinary stream / SNOMED CT 436589864 / Confirmed Objective Vital Signs 08/28/2023 7:51 EDT Peripheral Pulse Rate 62 bpm Respiratory Rate 14 br/min Systolic Blood Pressure 135 mmHg Diastolic Blood Pressure 80 mmHg Mean Arterial Pressure, Cuff 98 mmHg General: No acute distress. Alert and oriented x3. Well-nourished. Well-developed. Musculoskeletal: Arises slowly from a seated position. Injection sites are healed. Distinct pain with lumbar facet loading bilaterally. Neuro: 5/5 strength distal lower extremities. Impression and Plan 77-year-old gentleman with severe axial low back pain that is facet mediated based on his response to the bilateral 3-4 and L4-5 facet blocks. I recommend repeating the diagnostic blocks to confirm etiology of pain. If the patient experiences significant relief of his pain and improved function for the duration of the local anesthetic again I would recommend going ahead with radiofrequency ablation at the same levels to provide longer lasting relief. The procedure will be done under fluoroscopic guidance. Risk, benefits, and alternatives were reviewed with the patient. His condition and prognosis were reviewed with the patient as well. Questions were addressed. Patient would like to proceed. Plan to follow-up (more content not included)... Normal [facility] Comment on above: Result Comment: Elec tronically Signed By: Fabi WALTERS, Bib Chahal.br\Date and Time Signed: 08/28/23 08:26 EDT Insurance Correspondence Off iceon 08-28-2023 Insurance Correspondence Office [id number]#1.00T IFF Normal [facility] Office/Clinic Note-Physician on 08-28-2023 Office/Clinic Note-Physician [id number]#1.00 TIFF Normal [facility] Patient Correspondenceon Patient Correspondence [id number]#1.00 TIFF Normal [facility] Patient Correspondence [id number]#1.00 TIFF Normal [facility] Patient Correspondence [id number]#1.00 TIFF Normal [facility] Patient Correspondence [id number]#1.00 TIFF Normal [facility] Patient History Officeon Patient History Office [id number]#1.00 TIFF [facility] Consent for Procedure/Surger yon 08-07-2023 Consent for Procedure/Surgery [id number]#1.00 CD:127 [facility] Consent for Treatmenton Consent for Treatment [id number]#1.00 CD:127 Normal [facility] Discharge Instructionson Discharge Instructions [id number]#1.00 CD:127 Normal [facility] IntraOperative Documentson 1 IntraOperative Documents [id number]#1.00 CD:127 Normal [facility] Main OR Intraoperative Recor don 08-07-2023 Main OR Intraoperative Record IntraOp Document Type FTPM Summary Primary Physician: Bib Sanchez MD Finalized Date/Time: 08/07/23 13:22:25 Pt. Name: RIDGE ROLAND John Sands/Sex: 1945 Male Med Rec #: [id number] Physician: Bib Sanchez MD Financial #: [id number] Pt. Type: P Room/Bed: / Admit/Disch: 08/07/23 12:06:33 - Institution: Case Times FTPM Entry 1 Patient Times In Room 08/07/23 13:16:00 Out Room 08/07/23 13:23:00 Procedure Times Start 08/07/23 13:19:00 Stop 08/07/23 13:22:00 Anesthesia Times Last Modified By: Robin JENNINGS, Tomasa Davidson 08/07/23 13:22:17 Case Attendance FTPM Entry 1 Entry 2 Entry 3 Case Attendee Bib Sanchez MD, RN, Tomasa Garrett RN, [facility] Role Performed Surgeon - Primary Weather Analyst - Primary Scrub - Primary Time In 08/07/23 13:16:00 08/07/23 13:16:00 08/07/23 13:16:00 Time Out 08/07/23 13:23:00 08/07/23 13:23:00 08/07/23 13:23:00 Procedure MEDIAL BRANCH MEDIAL BRANCH MEDIAL BRANCH BLOCK(Bilateral) BLOCK(Bilateral) BLOCK(Bilateral) Comments Last Modified By: Robin JENNINGS, Tomasa Kelly RN, Tomasa J Tomasa Kelly RN 08/07/23 13:22:18 08/07/23 13:22:18 08/07/23 13:22:18 Entry 4 Case Attendee Donna Hall Role Performed Engineering Surveyor Time In 08/07/23 13:16:00 Time Out 08/07/23 13:23:00 Procedure MEDIAL BRANCH BLOCK(Bilateral) Comments Last Modified By: Tomasa Kelly RN 08/07/23 13:22:18 Perioperative Protocols FTPM Pre-Care Text: Implements protective measures prior to operative or invasive procedure, confirms identity before the operative or invasive procedure, verifies operative procedure, surgical site, and laterality Entry 1 Procedure(s) MEDIAL BRANCH Patient Identity Birthday, ID Band BLOCK(Bilateral) Verified (select at Check, Patient least 2): Participation Consents / H and P HandP, Surgery/Procedure Operative Site Present Verified Consent Marking Verified Surgical Site Yes Laterality Verified Yes Verified Procedure Verified Yes Correct Patient Yes Position Verified Availability Equipment, Medication, Prep Dry Yes Verified (If X-ray Applicable) PreOp Antibiotic No Time Out Tomasa Kelly RN, Given Participants Gerry JENNINGS, Fabi Roldan MD, Joshua D, Ott, Amy Time Out Complete 08/07/23 13:16:00 Outcomes Met? Yes Last Modified By: Tomasa Kelly RN 08/07/23 13:16:57 Post-Care Text: The patient is free from signs and symptoms of injury caused by extraneous objects Allergy Information FTPM Pre-Care Text: Verifies allergies Entry 1 Allergies Reviewed? Yes Allergies Reviewed Self/Patient With Outcomes Met? Yes Last Modified By: Tomasa Kelly RN 08/07/23 13:15:29 Post-Care Text: The patient received appropriate medication(s) safely administered during the perioperative period Surgical Procedures FTPM Entry 1 Procedure Description Procedure MEDIAL BRANCH BLOCK Modifiers Bilateral Surgeon Description L3/4, L4/5 MBB Primary Procedure Yes Primary Surgeon Bib Sanchez MD Start 08/07/23 13:19:00 Stop 08/07/23 13:22:00 Anesthesia Type None Surgical Service Pain Management Wound Class 1 - Clean Last Modified By: Tomasa Kelly RN 08/07/23 13:22:21 General Case Data FTPM Pre-Care Text: Classifies surgical wound, implements aseptic technique, initiates traffic control Entry 1 Case Information OR Pain Proc Room Case Level Level 2 Wound Class 1 - Clean Specialty Pain Management Preop Diagnosis M47.816 Postop Same As Preop Yes Postop Diagnosis M47.816 Outcomes Met? Yes Last Modified By: Tomasa Kelly RN 08/07/23 13:17:18 Post-Care Text: The patient is free from signs and symptoms of infection Skin Assessment (Pre Procedure) FTPM Pre-Care Text: Implements protective measures to prevent skin/ tissue injury due to thermal or mechanical sources Evaluates for signs and symptoms of physical injury to skin and tissue Entry 1 Skin Integrity Intact, [place], Warm, and Skin Abnormality No Dry Outcomes Met? Yes Last Modified By: Tomasa Kelly RN 08/07/23 13:15:44 Post-Care Text: The patient is free from signs and symptoms of injury caused by extraneous objects Patient Positioning FTPM Pre-Care Text: Identifies physical alterations that require additional precautions for procedure-specific positioning, verifies presence of prosthetics or corrective devices, positions the patient, evaluates the patient for signs and symptoms of injury as a result of positioning Entry 1 Procedure MEDIAL BRANCH Body Position Prone BLOCK(Bilateral) Feet Uncrossed? Yes Left Arm Position Resting at Side Right Arm Position Resting at Side Left Leg Position Extended Right Leg Position Extended Positioning Device Pillow Under Head Large, Safety Strap, Pillow Large Under Knees Press Points Checked Yes By Tomasa Kelly RN Outcomes Met? Yes Last Modified By: Tomasa Kelly RN 08/07/23 13:17:34 Post-Care Text: The (more content not included)... Normal [facility] Main OR Preoperative Recordo n 08-07-2023 Main OR Preoperative Record Holding Area Document Type FTPM Summary Primary Physician: Bib Sanchez MD Finalized Date/Time: 08/07/23 12:40:14 Pt. Name: RIDGE ROLAND D.O.B./Sex: 1945 Male Med Rec #: [id number] Physician: Bib Sanchez MD Financial #: [id number] Pt. Type: P Room/Bed: / Admit/Disch: 08/07/23 12:06:33 - Institution: Case Times Holding FTPM Pre-Care Text: Verifies consent for planned procedure, identifies individual values and wishes concerning care, includes family members in perioperative teaching Secures patient's records' belongings, and valuables, maintains patient's dignity and privacy, and maintains patient confidentiality Entry 1 In Holding 08/07/23 12:37:00 Outcomes Met? Yes Last Modified By: Sharee Dominguez RN 08/07/23 12:37:43 Post-Care Text: The patient participates in decisions affecting his or her perioperative plan of care The patient's right to privacy is maintained Surgery Checklist FTPM Entry 1 Patient Birthday, ID Band Procedure History and Physical, Identification: Check, Patient Verification: Surgical Consent, With Participation Patient NPO after Midnight: n/a Date/Time: 08/07/23 08:00:00 Personal Items: Cataract Lens Implant, Personal Items 2 rings, watch Glasses, Jewelry Comment: bilateral cataract surgery Complaints of Pain: Yes Pain Comment: 08/14 to lower back Operative Site Yes Marked By: operative site marked Marking: by Dr. Sanchez Location: bilateral L3/L4 L4/L5 Availability Equipment, X-Ray Verified: Does Patient Smoke No Patient states Yes Comment - Adult Dayan-spouse postop adult Supervision supervision available Case Cancelled in No Holding Area see comments below for reason Last Modified By: Sharee Dominguez RN 08/07/23 12:40:09 Finalized By: Sharee Dominguez RN Document Signatures Signed By: Sharee Dominguez RN 08/07/23 12:40 Normal [facility] Operative Reporton 3 Operative Report Patient: KEILA ROLAND Age: 77 years Sex: Male : 1945 Associated Diagnoses: None Author: Fabi WALTERS, Bib Jackson Procedure Procedure: Lumbar Facet Medial Branch Blocks to the Bilateral L3/4 and L4/5 Facet Joints with Fluoroscopic Guidance 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 The procedure, including risks benefits and alternatives was discussed with the patient. The patient agreed to proceed. Informed consent was obtained and the site(s) marked. The patient was brought to the procedure room and placed in the prone position with padding under the abdomen to reduce lumbar lordosis. Time out was performed. The back was prepped and draped in sterile fashion with Chloraprep. Skin and subcutaneous tissues were anesthetized with 6 mL of Lidocaine 2% through a 25G needle. 22G spinal needles were then advanced under fluoroscopic guidance to the locations of the medial branch nerves to the bilateral L3/4 and L4/5 facet joints. 0.1 mL of Isovue contrast was injected at each level demonstrating appropriate spread without vascular uptake. After confirmation of negative aspiration, 0.5mL of 0.5% bupivacaine was injected through each of the six needles. The needles were removed and bandages applied. The patient was brought to the recovery area in stable condition and then monitored for an appropriate period of time. The patient was discharged home in good condition with post-procedure instructions. No apparent complications. Epidural injection procedure Physical Exam: vital signs Vital Signs 08/07/2023 13:25 EDT Heart Rate Monitored 61 bpm SpO2 97 % 08/07/2023 13:25 EDT Systolic Blood Pressure 176 mmHg HI Diastolic Blood Pressure 90 mmHg HI Mean Arterial Pressure, Monitered 119 mmHg 08/07/2023 13:19 EDT Heart Rate Monitored 65 bpm Systolic Blood Pressure 153 mmHg HI Diastolic Blood Pressure 83 mmHg SpO2 95 % 08/07/2023 12:34 EDT Heart Rate Monitored 62 bpm SpO2 95 % 08/07/2023 12:34 EDT Temperature Axillary 36.5 DegC 08/07/2023 12:34 EDT Systolic Blood Pressure 157 mmHg HI Diastolic Blood Pressure 73 mmHg Mean Arterial Pressure, Monitered 101 mmHg 08/07/2023 12:33 EDT Respiratory Rate 14 br/min . [facility] Comment on above: Result Comment: Elec tronically Signed By: Fabi WALTERS, Bib Jackson\.br\Date and Time Signed: 08/07/23 13:35 EDT Patient Correspondenceon Patient Correspondence [id number]#1.00 CD:127 Normal [facility] Insurance Correspondence Off iceon 07-11-2023 Insurance Correspondence Office [id number]#2.00 CD:127 [facility] Consent for Treatmenton 06-05 Consent for Treatment [id number]#1.00 CD:127 Normal [facility] Consultation Noteon 06-18-20 Consultation Note Patient: KEILA ROLAND Age: 77 years Sex: Male : 1945 Associated Diagnoses: None Author: Bib Sanchez MD Subjective Chief complaint 06/18/2023 10:00 EDT Lower back pain . 77-year-old gentleman with a history of several low back surgeries following up from caudal epidural steroid injection on 05/29/2023. He reports 50% relief of his leg symptoms. He continues to have mechanical low back pain when he first stands. The pain can range up to 8/10 on the numeric rating scale. He has a difficult time getting around as a result of his pain. ZACARIAS is 45. Pain is significantly impacting his social life and ability to be on his feet for prolonged period of time. Sitting relieves his pain somewhat. He has undergone bilateral L3/4 facet blocks for diagnostic purposes in the past with 75% relief but not 80%. He and his are here to discuss further treatment options. The patient would like to avoid further surgical intervention if at all possible. He also has known peripheral neuropathy which impacts his legs from the knees down bilaterally. Health Status Allergies: Allergic Reactions (All) Severity Not Documented Oxybutynin- Hallucinations. OxyCODONE- Visual hallucinations. Canceled/Inactive Reactions (All) Severity Not Documented Sulfa drugs- Unknown. Current medications: (Selected) Prescriptions Prescribed Vesicare 10 mg Tab: 10 mg = 1 tab(s), Oral, Daily, X 30 day(s), # 30 tab(s), Refills(s) 6, Pharmacy: [facility]/pharmacy #[id number], 193, cm, 05/29/23 8:59:00 EDT, Height/Length Dosing, 108.9, kg, 03/19/23 8:54:00 EDT, Weight Dosing Viagra 50 mg Tab: See Instructions, 1-2 tab(s) po 1 hr before sexual acitivity. do not exceed 2 tabs in 24 hrs., # 15 tab(s), Refills(s) 3, Pharmacy: [facility]/pharmacy #[id number], 193, cm, 08/31/22 9:11:00 EDT, Height/Length Dosing, 114.5, kg, 08/31/22 9:11:00 EDT, Weight Dosing... Documented Medications Documented Calcium 600+D oral tablet: 1 tab(s), Oral, Daily, Prophylaxis Klor-Con M20: 1 tab, Oral, Daily, Refills(s) 0, Prophylaxis Lipitor 40 mg Tab: 40 mg = 1 tab(s), Oral, Daily, Refills(s) 0, High cholesterol Vitamin B12 1000 mcg Tab: 1,000 mcg = 1 tab(s), Oral, Daily, Refills(s) 0, Prophylaxis Vitamin C 1000 mg oral tablet: 1,000 mg = 1 tab(s), Oral, Daily, Refills(s) 0, Prophylaxis allopurinol 100 mg Tab: 100 mg = 1 tab(s), Oral, Daily, Refills(s) 0, Gout pain amlodipine: 5 mg, Oral, Daily, High blood pressure aspirin 81 mg oral tablet: 81 mg = 1 tab(s), Oral, Daily, # 30 tab(s), Refills(s) 0 hydrochlorothiazide: 25 mg, Oral, Daily, High blood pressure lutein: 5MG/25MG, Oral, Daily, Prophylaxis Problem list: All Problems Anticoagulated / SNOMED CT 484171638 / Confirmed At risk for falls / SNOMED CT 485280498 / Possible BMI 31.0-31.9,adult / SNOMED CT 551800126 / Confirmed BPH with urinary obstruction / SNOMED CT 7132535443 / Confirmed Chronic prostatitis / SNOMED CT 51025675 / Confirmed Dysuria / SNOMED CT 52177736 / Confirmed ED (erectile dysfunction) / SNOMED CT 2002738094 / Confirmed Elevated PSA / SNOMED CT 3659143615 / Confirmed Gross hematuria / SNOMED CT 473231285 / Confirmed Hernia, inguinal, right / SNOMED CT 849525337 / Confirmed Hypercholesterolemia / SNOMED CT 71582588 / Confirmed Impotence / SNOMED CT 5506658375 / Confirmed Incomplete bladder emptying / SNOMED CT 128184246 / Confirmed Incontinence without sensory awareness / SNOMED CT 2874441823 / Confirmed Leaking of urine / SNOMED CT 3955173488 / Confirmed Nocturia / SNOMED CT 986303097 / Confirmed Post-void dribbling / SNOMED CT 441226308 / Confirmed Prostate cancer screening / SNOMED CT 107745507 / Confirmed Urge incontinence / SNOMED CT 113750239 / Confirmed Urinary frequency / SNOMED CT 475315464 / Confirmed Urinary incontinence / SNOMED CT 3772817245 / Confirmed Urinary retention / SNOMED CT 823808795 / Confirmed Weak urinary stream / SNOMED CT 116814373 / Confirmed Objective Vital Signs 06/18/2023 10:00 EDT Peripheral Pulse Rate 64 bpm Respiratory Rate 14 br/min Systolic Blood Pressure 138 mmHg Diastolic Blood Pressure 82 mmHg Mean Arterial Pressure, Cuff 101 mmHg General: No acute distress. Alert and oriented x3. Well-nourished. Well-developed. Musculoskeletal: Arises very slowly from a seated position. He has to use his arms to prop himself up from a seated position. He is unstable on his feet due to his neuropathy. There is mild pain to palpation lumbar paraspinal region. No gross deformity or asymmetry. Sacroiliac joints are nontender to palpation bilaterally. No pain with range of motion of the bilateral hips. Niko's test negative bilaterally. Neuro: Diminished sensation in stocking distribution bilaterally. Shuffling gait. Negative straight leg raise bilaterally. Impression and Plan 77-year-old gentleman with chronic axial low back pain and peripheral neuropathy. He also suffers from lumbar postlaminectomy syndrome. Treatment options include (more content not included)... Normal [facility] Comment on above: Result Comment: Elec tronically Signed By: Fabi WALTERS, Bib Jackson\.amy\Date and Time Signed: 06/18/23 10:46 EDT Office/Clinic Note-Physician on 06-18-2023 Office/Clinic Note-Physician [id number]#1.00 CD:127 Normal [facility] Patient Correspondenceon Patient Correspondence [id number]#1.00 CD:127 Normal [facility] Patient Correspondence [id number]#1.00 CD:127 Normal [facility] Patient History Officeon Patient History Office [id number]#1.00 CD:127 Normal [facility] Consent for Procedure/Surger yon 05-29-2023 Consent for Procedure/Surgery [id number]#1.00 CD:127 [facility] Consent for Treatmenton 05-06 Consent for Treatment [id number]#1.00C D:127 [facility] Discharge Instructionson Discharge Instructions [id number]#1.00 CD:127 [facility] IntraOperative Documentson 0 05-29-2023 IntraOperative Documents [id number]#1.00 CD:127 [facility] Main OR Intraoperative Recor don 05-29-2023 Main OR Intraoperative Record IntraOp Document Type FTPM Summary Primary Physician: Bib Sanchez MD Finalized Date/Time: 05/29/23 09:35:05 Pt. Name: ASUNCIONRIDGEO.B./Sex: 1945 Male Med Rec #: [id number] Physician: Bib Sanchez MD Financial #: [id number] Pt. Type: P Room/Bed: / Admit/Disch: 05/29/23 08:31:07 - Institution: Case Times FTPM Entry 1 Patient Times In Room 05/29/23 09:27:00 Out Room 05/29/23 09:34:00 Procedure Times Start 05/29/23 09:30:00 Stop 05/29/23 09:33:00 Anesthesia Times Last Modified By: Sharee Dominguez RN 05/29/23 09:33:49 Case Attendance FTPM Entry 1 Entry 2 Entry 3 Case Attendee Bib Sanchez MD, RN, Sharee Ricks RN Role Performed Surgeon - Primary Scrub - Primary Weather Analyst - Primary Time In 05/29/23 09:27:00 05/29/23 09:27:00 05/29/23 09:27:00 Time Out 05/29/23 09:34:00 05/29/23 09:34:00 05/29/23 09:34:00 Procedure CAUDAL EPIDURAL STEROID CAUDAL EPIDURAL STEROID CAUDAL EPIDURAL STEROID INJECTION(.) INJECTION(.) INJECTION(.) Comments Last Modified By: Sharee Dominguez RN 05/29/23 Sharee Dominguez RN 05/29/23 Sharee Dominguez RN 05/29/23 09:33:49 09:33:49 09:33:49 Entry 4 Case Attendee Soni MCNULTY(R)Adry Role Performed Engineering Surveyor Time In 05/29/23 09:27:00 Time Out 05/29/23 09:34:00 Procedure CAUDAL EPIDURAL STEROID INJECTION(.) Comments Last Modified By: Sharee Dominguez RN 05/29/23 09:33:49 Perioperative Protocols FTPM Pre-Care Text: Implements protective measures prior to operative or invasive procedure, confirms identity before the operative or invasive procedure, verifies operative procedure, surgical site, and laterality Entry 1 Procedure(s) CAUDAL EPIDURAL STEROID Patient Identity Birthday, ID Band INJECTION(.) Verified (select at Check, Patient least 2): Participation Consents / H and P HandP, Surgery/Procedure Operative Site Present Verified Consent Marking Verified Surgical Site Yes Laterality Verified Yes Verified Procedure Verified Yes Correct Patient Yes Position Verified Availability Equipment, Medication, Prep Dry Yes Verified (If X-ray Applicable) PreOp Antibiotic No Time Out Sharee Dominguez RN, Myers Given Elaine JENNINGS, Fabi Chang MD, Soni Bateman(R)Adry Time Out Complete 05/29/23 09:29:00 Outcomes Met? Yes Last Modified By: Sharee Dominguez RN 05/29/23 09:29:13 Post-Care Text: The patient is free from signs and symptoms of injury caused by extraneous objects Allergy Information FTPM Pre-Care Text: Verifies allergies Entry 1 Allergies Reviewed? Yes Allergies Reviewed Self/Patient With Outcomes Met? Yes Last Modified By: Sharee Dominguez RN 05/29/23 08:52:53 Post-Care Text: The patient received appropriate medication(s) safely administered during the perioperative period Surgical Procedures FTPM Entry 1 Procedure Description Procedure CAUDAL EPIDURAL STEROID Modifiers . INJECTION Surgeon Description CAUDAL JOHN Primary Procedure Yes Primary Surgeon Fabi WALTERS, Bib Jackson Start 05/29/23 09:30:00 Stop 05/29/23 09:33:00 Anesthesia Type None Surgical Service Pain Management Wound Class 1 - Clean Last Modified By: Sharee Dominguez RN 05/29/23 09:33:51 General Case Data FTPM Pre-Care Text: Classifies surgical wound, implements aseptic technique, initiates traffic control Entry 1 Case Information OR Pain Proc Room Case Level Level 2 Wound Class 1 - Clean Specialty Pain Management Preop Diagnosis M48.062 M54.16 Postop Same As Preop Yes Postop Diagnosis M48.062 M54.16 Outcomes Met? Yes Last Modified By: Sharee Dominguez RN 05/29/23 08:53:27 Post-Care Text: The patient is free from signs and symptoms of infection Skin Assessment (Pre Procedure) FTPM Pre-Care Text: Implements protective measures to prevent skin/ tissue injury due to thermal or mechanical sources Evaluates for signs and symptoms of physical injury to skin and tissue Entry 1 Skin Integrity Intact, Benicia, Warm, and Skin Abnormality No Dry Outcomes Met? Yes Last Modified By: Sharee Dominguez RN 05/29/23 08:55:05 Post-Care Text: The patient is free from signs and symptoms of injury caused by extraneous objects Patient Positioning FTPM Pre-Care Text: Identifies physical alterations that require additional precautions for procedure-specific positioning, verifies presence of prosthetics or corrective devices, positions the patient, evaluates the patient for signs and symptoms of injury as a result of positioning Entry 1 Procedure CAUDAL EPIDURAL STEROID Body Position Prone INJECTION(.) Feet Uncrossed? Yes Left Arm Position Resting at Side Right Arm Position Resting at Side Left Leg Position Extended Right Leg Position Extended Positioning Device Pillow Under Head Large, Safety Strap, Pillow Large Under Knees Press Points Checked Yes By Sharee Dominguez RN Outcomes Met? Yes Last Modified By: Sharee Dominguez RN 05/29/23 08:55:14 Post-Care Text: The patient is fr (more content not included)... Normal [facility] Main OR Preoperative Recordo n 05-29-2023 Main OR Preoperative Record Holding Area Document Type FTPM Summary Primary Physician: Bib Sanchez MD Finalized Date/Time: 05/29/23 09:03:38 Pt. Name: RIDGE ROLAND/Sex: 1945 Male Med Rec #: [id number] Physician: Bib Sanchez MD Financial #: [id number] Pt. Type: P Room/Bed: / Admit/Disch: 05/29/23 08:31:07 - Institution: Case Times Holding FTPM Pre-Care Text: Verifies consent for planned procedure, identifies individual values and wishes concerning care, includes family members in perioperative teaching Secures patient's records' belongings, and valuables, maintains patient's dignity and privacy, and maintains patient confidentiality Entry 1 In Holding 05/29/23 09:01:00 Outcomes Met? Yes Last Modified By: Azra Alberto RN 05/29/23 09:01:48 Post-Care Text: The patient participates in decisions affecting his or her perioperative plan of care The patient's right to privacy is maintained Surgery Checklist FTPM Entry 1 Patient Birthday, ID Band Procedure History and Physical, Identification: Check, Patient Verification: Surgical Consent, With Participation Patient NPO after Midnight: No Date/Time: 05/29/23 09:02:00 Personal Items: Cataract Lens Implant, Personal Items watch and ring Glasses, Jewelry Comment: Complaints of Pain: Yes Pain Comment: 04/14 low back Operative Site Yes Marked By: fabi Marking: Location: lumbar Availability Equipment, X-Ray Verified: Does Patient Smoke No Patient states Yes Comment - Adult itzel postop adult Supervision supervision available Case Cancelled in No Holding Area see comments below for reason Last Modified By: Azra Alberto RN 05/29/23 09:03:32 General Comments: coffee Finalized By: Azra Alberto RN Document Signatures Signed By: Azra Alberto RN 05/29/23 09:03 Normal [facility] Operative Reporton 3 Operative Report Patient: KEILA ROLAND Age: 77 years Sex: Male : 1945 Associated Diagnoses: None Author: Bib Sanchez MD Procedure Procedure: Caudal Epidural Steroid Injection with Fluoroscopic Guidance Diagnosis: Lumbar Spinal Stenosis with claudication and radiculitis Anesthesia: local The patient was identified in the pre-op area. The procedure, including risks benefits and alternatives was discussed with the patient. The patient agreed to proceed. Informed consent was obtained and the site(s) marked. The patient was brought to the procedure room and placed in the prone position with padding under the abdomen to reduce lumbar lordosis. Time out was taken. Monitors were placed. Patient was responsive throughout the procedure. The sacral region was prepped and draped in sterile fashion with Chloraprep. Skin and subcutaneous tissues were anesthetized with 4 mL of Lidocaine 2% through a 25G needle. A 22G spinal needle was then advanced under fluoroscopic guidance onto the sacral hiatus. Isovue 1mL was injected under live fluoroscopy which demonstrated appropriate epidural spread without vascular uptake. After confirmation of negative aspiration, 2mL of 2% PF lidocaine, 7mL of PF normal saline, and 10mg (10mg/1mL) of PF dexamethasone were injected. The needle was removed and a bandage applied. The patient was brought to the recovery area in stable condition and then monitored for an appropriate period of time. The patient was discharged home in good condition with post-procedure instructions. No apparent complications. Epidural injection procedure Physical Exam: vital signs Vital Signs 05/29/2023 9:29 EDT Heart Rate Monitored 66 bpm Respiratory Rate 20 br/min Systolic Blood Pressure 143 mmHg HI Diastolic Blood Pressure 82 mmHg SpO2 94 % 05/29/2023 8:59 EDT Heart Rate Monitored 65 bpm SpO2 96 % 05/29/2023 8:59 EDT Respiratory Rate 18 br/min 05/29/2023 8:58 EDT Temperature Axillary 36.4 DegC 05/29/2023 8:57 EDT Systolic Blood Pressure 180 mmHg HI Diastolic Blood Pressure 90 mmHg HI Mean Arterial Pressure, Monitered 120 mmHg . Normal [facility] Comment on above: Result Comment: Elec tronically Signed By: Fabi WALTERS, Bib Jackson\.br\Date and Time Signed: 05/29/23 09:34 EDT Insurance Correspondence Off iceon 05-16-2023 Insurance Correspondence Office [id number]#1.00C D:127 Normal [facility] Patient Correspondenceon Patient Correspondence [id number]#1.00 CD:127 Normal [facility] Consent for Treatmenton Consent for Treatment [id number]#1.00 CD:127 Normal [facility] Consultation Noteon 05-11-20 23 Consultation Note Patient: KEILA ROLAND Age: 77 years Sex: Male : 1945 Associated Diagnoses: None Author: Stephenie Barrios PA-C Subjective Chief complaint 05/11/2023 9:40 EDT Lower back pain . Patient is a 77-year-old male. He has a history of multiple previous back surgeries. He presents today for follow-up after undergoing his second bilateral L3-4 medial branch block. This was done on 05/01/2023 that he states gave him 75% relief for maybe 1 or 2 hours but nothing more significant than that. He states that he definitely did not get 4 hours worth of pain relief. The first 1 was done on 03/12/2023 and he states gave him 80% relief for 4 hours. He has lower back pain with bilateral foot pain and burning as well as some intermittent left leg pain. He has previously seen Dr. Kenyon. Dr. Kenyon recommended him to be seen by our services for the medial branch block. He was a fast-track for the first injection. 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 Patient has tried gabapentin in the past and it did not help. He is not using Lyrica. He does not really notice much by the way of relief from this. He rates his discomfort a 1?8/10 depending on what he is doing. Left side greater than right side. Patient states that he relapsed to try and avoid any other back surgeries. He just wants to feel better. He states that he cannot do anything because of the pain. He cannot walk for more than a mile and cannot stand for more than 30 minutes. OTC medications do not help. Previous physical therapy done throughout the months of January and February 2023 did not help. The first medial branch block helped. The second unfortunate, did not per patient. He is very discouraged and just does not understand why he cannot feel better. Health Status Allergies: Allergic Reactions (Selected) Severity Not Documented Oxybutynin- Hallucinations. OxyCODONE- Visual hallucinations., Allergies (2) Active Reaction oxybutynin Hallucinations oxyCODONE Visual hallucinations Current medications: (Selected) Prescriptions Prescribed Vesicare 10 mg Tab: 10 mg = 1 tab(s), Oral, Daily, X 30 day(s), # 30 tab(s), Refills(s) 6, [id number], cm, 11/28/22 9:02:00 EST, Height/Length Dosing, 114.5, kg, 11/28/22 9:02:00 EST, Weight Dosing Viagra 50 mg Tab: See Instructions, 1-2 tab(s) po 1 hr before sexual acitivity. do not exceed 2 tabs in 24 hrs., # 15 tab(s), Refills(s) 3, [id number], 193, cm, 08/31/22 9:11:00 EDT, Height/Length Dosing, 114.5, kg, 08/31/22 9:11:00 EDT, Weight Dosing... pregabalin 25 mg Cap: 25 mg = 1 cap(s), Oral, BID, X 30 day(s), # 60 cap(s), Refills(s) 0, [id number], 193, cm, 03/19/23 8:54:00 EDT, Height/Length Dosing, 108.9, kg, 03/19/23 8:54:00 EDT, Weight Dosing Documented Medications Documented Calcium 600+D oral tablet: 1 tab(s), Oral, Daily, Prophylaxis Klor-Con M20: 1 tab, Oral, Daily, Refills(s) 0, Prophylaxis Lipitor 40 mg Tab: 40 mg = 1 tab(s), Oral, Daily, Refills(s) 0, High cholesterol Vitamin B12 1000 mcg Tab: 1,000 mcg = 1 tab(s), Oral, Daily, Refills(s) 0, Prophylaxis Vitamin C 1000 mg oral tablet: 1,000 mg = 1 tab(s), Oral, Daily, Refills(s) 0, Prophylaxis allopurinol 100 mg Tab: 100 mg = 1 tab(s), Oral, Daily, Refills(s) 0, Gout pain amlodipine: 5 mg, Oral, Daily, High blood pressure aspirin 81 mg oral tablet: 81 mg = 1 tab(s), Oral, Daily, # 30 tab(s), Refills(s) 0 hydrochlorothiazide: 25 mg, Oral, Daily, High blood pressure lutein: 5MG/25MG, Oral, Daily, Prophylaxis Problem list: All Problems Hypercholesterolemia / SNOMED CT 02389740 / Confirmed Hernia, inguinal, right / SNOMED CT 330766858 / Confirmed BPH with urinary obstruction / SNOMED CT 8288375126 / Confirmed Elevated PSA / SNOMED CT 6904458134 / Confirmed Impotence / SNOMED CT 6102397962 / Confirmed Urinary frequency / SNOMED CT 883926243 / Confirmed Nocturia / SNOMED CT 370933744 / Confirmed Weak urinary stream / SNOMED CT 878899159 / Confirmed Gross hematuria / SNOMED CT 572472192 / Confirmed Anticoagulated / SNOMED CT 915745156 / Confirmed Urge incontinence / SNOMED CT 096421121 / Confirmed Chronic prostatitis / SNOMED CT 92811637 / Confirmed Dysuria / SNOMED CT 66488918 / Confirmed Urinary retention / SNOMED CT 352824272 / Confirmed BMI 31.0-31.9,adult / SNOMED CT 438986918 / Confirmed Incomplete bladder emptying / SNOMED CT 326664471 / Confirmed Post-void dribbling / SNOMED CT 703720582 / Confirmed Incontinence without sensory awareness / SNOMED CT 2392664487 / Confirmed At risk for falls / SNOMED CT 667876134 / Possible ED (erectile dysfunction) / SNOMED CT 2013526330 / Confirmed Leaking of urine / SNOMED CT 6125363678 / Confirmed Urinary incontinence / SNOMED CT 7673207886 / Confirmed Prostate cancer screening / SNOMED CT 853976474 / Confirmed Resolved: Hypertension / SNOMED CT 1745411568 Resolved: Stricture of membranous urethra (more content not included)... Normal [facility] Comment on above: Result Comment: Elec tronically Signed By: Stephenie Barrios PA-C\.br\Date and Time Signed: 05/11/23 10:13 EDT\.br\Electronically Co-Signed By: Fabi WALTERS, Bib Jackson\.br\Date and Time Co-Signed: 05/29/23 10:42 EDT Office/Clinic Note-Physician on 05-11-2023 Office/Clinic Note-Physician [id number]#1.00C D:127 Normal [facility] Patient Correspondenceon Patient Correspondence [id number]#1.00C D:127 Normal [facility] Patient Correspondence [id number]#1.00C D:127 Normal [facility] Patient Correspondence [id number]#1.00C D:127 Normal [facility] Patient History Officeon Patient History Office [id number]#1.00C D:127 [facility] Consent for Procedure/Surger yon 05-01-2023 Consent for Procedure/Surgery [id number]#1.00 CD:127 [facility] Consent for Treatmenton 04-06 Consent for Treatment [id number]#1.00 CD:127 [facility] Discharge Instructionson Discharge Instructions [id number]#1.00 CD:127 [facility] IntraOperative Documentson 0 05-01-2023 IntraOperative Documents [id number]#1.00 CD:127 [facility] Main OR Intraoperative Recor don 05-01-2023 Main OR Intraoperative Record IntraOp Document Type FTPM Summary Primary Physician: Bib Sanchez MD Finalized Date/Time: 05/01/23 14:41:27 Pt. Name: RIDGE ROLAND/Sex: 1945 Male Med Rec #: [id number] Physician: Bib Sanchez MD Financial #: [id number] Pt. Type: P Room/Bed: / Admit/Disch: 05/01/23 13:47:53 - Institution: Case Times FTPM Entry 1 Patient Times In Room 05/01/23 14:31:00 Out Room 05/01/23 14:37:00 Procedure Times Start 05/01/23 14:34:00 Stop 05/01/23 14:36:00 Anesthesia Times Last Modified By: Savannah Garrett RN 05/01/23 14:36:49 Case Attendance FTPM Entry 1 Entry 2 Entry 3 Case Attendee Fabi WALTERS, Bib Garrett RN, Savannah Tolentino RN, Emma Keenan Role Performed Surgeon - Primary Weather Analyst - Primary Scrub - Primary Time In 05/01/23 14:31:00 05/01/23 14:31:00 05/01/23 14:31:00 Time Out 05/01/23 14:37:00 05/01/23 14:37:00 05/01/23 14:37:00 Procedure MEDIAL BRANCH MEDIAL BRANCH MEDIAL BRANCH BLOCK(Bilateral) BLOCK(Bilateral) BLOCK(Bilateral) Comments Last Modified By: Gerry JENNINGS, Savannah Garrett RN, Savannah Tasi RN 05/01/23 14:36:49 05/01/23 14:36:49 05/01/23 14:36:49 Entry 4 Entry 5 Case Attendee Deborah Potter RT(R), Adry Role Performed Engineering Surveyor Engineering Surveyor Time In 05/01/23 14:31:00 05/01/23 14:31:00 Time Out 05/01/23 14:37:00 05/01/23 14:37:00 Procedure MEDIAL BRANCH MEDIAL BRANCH BLOCK(Bilateral) BLOCK(Bilateral) Comments Last Modified By: Gerry JENNINGS, Savannah Tsai RN 05/01/23 14:36:49 05/01/23 14:36:49 Perioperative Protocols FTPM Pre-Care Text: Implements protective measures prior to operative or invasive procedure, confirms identity before the operative or invasive procedure, verifies operative procedure, surgical site, and laterality Entry 1 Procedure(s) MEDIAL BRANCH Patient Identity Birthday, ID Band BLOCK(Bilateral) Verified (select at Check, Patient least 2): Participation Consents / H and P HandP, Surgery/Procedure Operative Site Present Verified Consent Marking Verified Surgical Site Yes Laterality Verified Yes Verified Procedure Verified Yes Correct Patient Yes Position Verified Availability Equipment, Medication, Prep Dry Yes Verified (If X-ray Applicable) PreOp Antibiotic No Time Out Savannah Garrett RN, Rajan JENNINGS, Fabi Chang MD, Bib Jackson, Deborah Potter Christman RT(R), Adry Time Out Complete 05/01/23 14:32:00 Outcomes Met? Yes Last Modified By: Savannah Garrett RN 05/01/23 14:32:19 Post-Care Text: The patient is free from signs and symptoms of injury caused by extraneous objects Allergy Information FTPM Pre-Care Text: Verifies allergies Entry 1 Allergies Reviewed? Yes Allergies Reviewed Self/Patient With Outcomes Met? Yes Last Modified By: Savannah Garrett RN 05/01/23 14:32:24 Post-Care Text: The patient received appropriate medication(s) safely administered during the perioperative period Surgical Procedures FTPM Entry 1 Procedure Description Procedure MEDIAL BRANCH BLOCK Modifiers Bilateral Surgeon Description L3/4 MBB Primary Procedure Yes Primary Surgeon Fabi WALTERS, Bib Jackson Start 05/01/23 14:34:00 Stop 05/01/23 14:36:00 Anesthesia Type None Surgical Service Pain Management Wound Class 1 - Clean Last Modified By: Savannah Garrett RN 05/01/23 14:36:52 General Case Data FTPM Pre-Care Text: Classifies surgical wound, implements aseptic technique, initiates traffic control Entry 1 Case Information OR Pain Proc Room Case Level Level 2 Wound Class 1 - Clean Specialty Pain Management Preop Diagnosis M47.816 Postop Same As Preop Yes Postop Diagnosis M47.816 Outcomes Met? Yes Last Modified By: Savannah Garrett RN 05/01/23 14:32:33 Post-Care Text: The patient is free from signs and symptoms of infection Skin Assessment (Pre Procedure) FTPM Pre-Care Text: Implements protective measures to prevent skin/ tissue injury due to thermal or mechanical sources Evaluates for signs and symptoms of physical injury to skin and tissue Entry 1 Skin Integrity Intact, Benicia, Warm, and Skin Abnormality No Dry Outcomes Met? Yes Last Modified By: Savannah Garrett RN 05/01/23 14:32:40 Post-Care Text: The patient is free from signs and symptoms of injury caused by extraneous objects Patient Positioning FTPM Pre-Care Text: Identifies physical alterations that require additional precautions for procedure-specific positioning, verifies presence of prosthetics or corrective devices, positions the patient, evaluates the patient for signs and symptoms of injury as a result of positioning Entry 1 Procedure MEDIAL BRANCH Body Position Prone BLOCK(Bilateral) Feet Uncrossed? Yes Left Arm Position Resting at Side Right Arm Position Resting at Side Left Leg Position Extended Right Leg Position Extended Positioning Device Pillow Und (more content not included)... Normal [facility] Main OR Preoperative Recordo n 05-01-2023 Main OR Preoperative Record Holding Area Document Type FTPM Summary Primary Physician: Bib Sanchez MD Finalized Date/Time: 05/01/23 14:08:56 Pt. Name: RIDGE ROLAND John /Sex: 1945 Male Med Rec #: [id number] Physician: Bib Sanchez MD Financial #: [id number] Pt. Type: P Room/Bed: / Admit/Disch: 05/01/23 13:47:53 - Institution: Case Times Holding FTPM Pre-Care Text: Verifies consent for planned procedure, identifies individual values and wishes concerning care, includes family members in perioperative teaching Secures patient's records' belongings, and valuables, maintains patient's dignity and privacy, and maintains patient confidentiality Entry 1 In Holding 05/01/23 14:07:00 Outcomes Met? Yes Last Modified By: Sharee Dominguez RN 05/01/23 14:07:06 Post-Care Text: The patient participates in decisions affecting his or her perioperative plan of care The patient's right to privacy is maintained Surgery Checklist FTPM Entry 1 Patient Birthday, ID Band Procedure History and Physical, Identification: Check, Patient Verification: Surgical Consent, With Participation Patient NPO after Midnight: n/a Date/Time: 05/01/23 12:00:00 Results Reviewed Hot dog Personal Items: Cataract Lens Implant, Comments: Dentures, Jewelry Personal Items upper dentures, 2 rings Complaints of Pain: Yes Comment: and one watch Pain Comment: 05/14 to lower back Operative Site Yes Marking: Marked By: operative site marked Availability Equipment, X-Ray by Dr. Sanchez Verified: Does Patient Smoke No Patient states Yes Comment - Adult Itzel- postop adult Supervision supervision available Case Cancelled in No Holding Area see comments below for reason Last Modified By: Sharee Dominguez RN 05/01/23 14:08:50 Finalized By: Sharee Dominguez RN Document Signatures Signed By: Sharee Dominguez RN 05/01/23 14:08 Normal [facility] Operative Reporton Operative Report Patient: KEILA ROLAND Age: 77 years Sex: Male : 1945 Associated Diagnoses: None Author: Bib Sanchez MD Procedure Procedure: Lumbar Facet Medial Branch Blocks to the Bilateral L3/4 Facet Joints with Fluoroscopic Guidance 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 The procedure, including risks benefits and alternatives was discussed with the patient. The patient agreed to proceed. Informed consent was obtained and the site(s) marked. The patient was brought to the procedure room and placed in the prone position with padding under the abdomen to reduce lumbar lordosis. Time out was performed. The back was prepped and draped in sterile fashion with Chloraprep. Skin and subcutaneous tissues were anesthetized with 3 mL of Lidocaine 2% through a 25G needle. 22G spinal needles were then advanced under fluoroscopic guidance to the locations of the medial branch nerves to the bilateral L3/4 facet joints. 0.1 mL of Isovue contrast was injected at each level demonstrating appropriate spread without vascular uptake. After confirmation of negative aspiration, 0.5mL of 0.5% bupivacaine was injected through each of the six needles. The 4 needles were removed and bandages applied. The patient was brought to the recovery area in stable condition and then monitored for an appropriate period of time. The patient was discharged home in good condition with post-procedure instructions. No apparent complications. Epidural injection procedure Physical Exam: vital signs Vital Signs 05/01/2023 14:04 EDT Heart Rate Monitored 60 bpm SpO2 94 % 05/01/2023 14:04 EDT Systolic Blood Pressure 152 mmHg HI Diastolic Blood Pressure 78 mmHg Mean Arterial Pressure, Monitered 103 mmHg 05/01/2023 14:04 EDT Temperature Oral 36.3 DegC 05/01/2023 14:04 EDT Respiratory Rate 14 br/min . Normal [facility] Comment on above: Result Comment: Elec tronically Signed By: Zuhair Sanchez MDua D\.amy\Date and Time Signed: 05/01/23 14:36 EDT Patient Correspondenceon Patient Correspondence [id number]#1.00 CD:127 Normal [facility] Insurance Correspondence Off iceon 03-28-2023 Insurance Correspondence Office [id number]#2.00C D:127 Normal [facility] Consent for Treatmenton 03-05 Consent for Treatment [id number]#1.00 CD:127 Normal [facility] Consultation Noteon 03-19-20 Consultation Note Patient: KEILA ROLAND Age: 77 years Sex: Male : 1945 Associated Diagnoses: None Author: Stephenie Barrios PA-C Subjective Chief complaint 03/19/2023 8:45 EDT left lower back . Patient is a 77-year-old male. He has a history of multiple previous back surgeries. He presents today for follow-up after undergoing bilateral L3-4 medial branch block. This was done on 03/12/2023 and he states gave him 80% relief for 4 hours but then he still notices some relief on the right side. He has lower back pain as well as numbness and tingling in his feet. He has previously seen Dr. Kenyon. Dr. Kenyon recommended him to be seen by our services for the medial branch block. He was a fast-track for this injection. 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 Patient has tried gabapentin in the past and it did not help. He rates his discomfort an 8/10. It is an aching and stabbing type pain in his back worse with any sort of walking or standing. It is also numbness in his feet. Patient states that he relapsed to try and avoid any other back surgeries. He just wants to feel better. He states that he cannot do anything because of the pain. He cannot walk for more than a mile and cannot stand for more than 30 minutes. OTC medications do not help. Previous physical therapy done throughout the months of January and February 2023 did not help. Health Status Allergies: Allergic Reactions (Selected) Severity Not Documented Oxybutynin- Hallucinations. OxyCODONE- Visual hallucinations., Allergies (2) Active Reaction oxybutynin Hallucinations oxyCODONE Visual hallucinations Current medications: (Selected) Prescriptions Prescribed Vesicare 10 mg Tab: 10 mg = 1 tab(s), Oral, Daily, X 30 day(s), # 30 tab(s), Refills(s) 6, [id number], cm, 11/28/22 9:02:00 EST, Height/Length Dosing, 114.5, kg, 11/28/22 9:02:00 EST, Weight Dosing Viagra 50 mg Tab: See Instructions, 1-2 tab(s) po 1 hr before sexual acitivity. do not exceed 2 tabs in 24 hrs., # 15 tab(s), Refills(s) 3, [id number] 193, cm, 08/31/22 9:11:00 EDT, Height/Length Dosing, 114.5, kg, 08/31/22 9:11:00 EDT, Weight Dosing... pregabalin 25 mg Cap: 25 mg = 1 cap(s), Oral, BID, # 60 cap(s), Refills(s) 0, [id number] 193, cm, 03/19/23 8:54:00 EDT, Height/Length Dosing, 108.9, kg, 03/19/23 8:54:00 EDT, Weight Dosing Documented Medications Documented Calcium 600+D oral tablet: 1 tab(s), Oral, Daily, Prophylaxis Klor-Con M20: 1 tab, Oral, Daily, Refills(s) 0, Prophylaxis Lipitor 40 mg Tab: 40 mg = 1 tab(s), Oral, Daily, Refills(s) 0, High cholesterol Vitamin B12 1000 mcg Tab: 1,000 mcg = 1 tab(s), Oral, Daily, Refills(s) 0, Prophylaxis Vitamin C 1000 mg oral tablet: 1,000 mg = 1 tab(s), Oral, Daily, Refills(s) 0, Prophylaxis allopurinol 100 mg Tab: 100 mg = 1 tab(s), Oral, Daily, Refills(s) 0, Gout pain amlodipine: 5 mg, Oral, Daily, High blood pressure aspirin 81 mg oral tablet: 81 mg = 1 tab(s), Oral, Daily, # 30 tab(s), Refills(s) 0 hydrochlorothiazide: 25 mg, Oral, Daily, High blood pressure lutein: 5MG/25MG, Oral, Daily, Prophylaxis Problem list: All Problems Hypercholesterolemia / SNOMED CT 33045928 / Confirmed Hernia, inguinal, right / SNOMED CT 558166313 / Confirmed BPH with urinary obstruction / SNOMED CT 7235042496 / Confirmed Elevated PSA / SNOMED CT 6282908634 / Confirmed Impotence / SNOMED CT 9262594545 / Confirmed Urinary frequency / SNOMED CT 089215441 / Confirmed Nocturia / SNOMED CT 161699673 / Confirmed Weak urinary stream / SNOMED CT 623919711 / Confirmed Gross hematuria / SNOMED CT 825547048 / Confirmed Anticoagulated / SNOMED CT 402617677 / Confirmed Urge incontinence / SNOMED CT 974210581 / Confirmed Chronic prostatitis / SNOMED CT 71529022 / Confirmed Dysuria / SNOMED CT 02840595 / Confirmed Urinary retention / SNOMED CT 185737300 / Confirmed BMI 31.0-31.9,adult / SNOMED CT 208011217 / Confirmed Incomplete bladder emptying / SNOMED CT 979996130 / Confirmed Post-void dribbling / SNOMED CT 651297650 / Confirmed Incontinence without sensory awareness / SNOMED CT 1852393776 / Confirmed At risk for falls / SNOMED CT 080839839 / Possible ED (erectile dysfunction) / SNOMED CT 4496966060 / Confirmed Leaking of urine / SNOMED CT 0687376489 / Confirmed Urinary incontinence / SNOMED CT 0604707370 / Confirmed Prostate cancer screening / SNOMED CT 108332965 / Confirmed Resolved: Hypertension / SNOMED CT 3311625343 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 Eye: Normal conjunctiva. HENT: Normocephalic, Normal hearing. Cardiovascular: No edema. Mus (more content not included)... Normal [facility] Comment on above: Result Comment: Elec tronically Signed By: Stephenie Barrios PA-C\.br\Date and Time Signed: 03/19/23 09:32 EDT\.br\Electronically Co-Signed By: Bib Sanchez MD\.br\Date and Time Co-Signed: 03/20/23 15:44 EDT Office/Clinic Note-Physician on 03-19-2023 Office/Clinic Note-Physician [id number]#1.00C D:127 Normal [facility] Patient Correspondenceon Patient Correspondence [id number]#1.00C D:127 Normal [facility] Patient Correspondence [id number]#1.00C D:127 Normal [facility] Patient History Officeon Patient History Office [id number]#1.00C D:127 Normal [facility] PROF CHEM 8 (BAS METB)on Anion gap [Moles/Vol] 12.2 mmol/L Normal [facility] Comment on above: Performed By: #### B MP #### [facility] [address] [address] [address] Liban Whyte Calcium [Mass/Vol] 9.0 mg/dL Normal 8.5-10.1 [facility] Comment on above: Performed By: #### B MP #### [facility] [address] [address] [address] Liban Whyte Chloride [Moles/Vol] 103 mmol/L Normal 98-107 [facility] Comment on above: Performed By: #### B MP #### [facility] [address] [address] [address] Liban Whyte CO2 [Moles/Vol] 27.6 mmol/L Normal 21.0-32.0 [facility] Comment on above: Performed By: #### B MP #### [facility] [address] [address] [address] Liban Whyte Creatinine [Mass/Vol] 0.82 mg/dL Normal 0.70-1.30 [facility] Comment on above: Performed By: #### B MP #### [facility] [address] [address] [address] Liban Whyte EGFR-AF FAROESE >60 Normal >=60 [facility] Comment on above: Performed By: #### B MP #### [facility] [address] [address] [address] Liban Whyte EGFR-NON AF FAROESE >60 Normal >=60 [facility] Comment on above: Performed By: #### B MP #### [facility] [address] [address] [address] Liban Whyte Glucose [Mass/Vol] 116 mg/dL Critically high 74-106 T [facility] Comment on above: Performed By: #### B MP #### [facility] [address] [place] [address] Dr. Liban Whyte Potassium [Moles/Vol] 3.8 mmol/L Normal 3.5-5.1 [facility] Comment on above: Performed By: #### B MP #### [facility] [address] [place] [address] Dr. Liban Whyte Sodium [Moles/Vol] 139 mmol/L Normal 136-145 [facility] Comment on above: Performed By: #### B MP #### [facility] [address] [address] [address] Liban Whyte Urea nitrogen [Mass/Vol] 18.0 mg/dL Normal 7.0-18.0 [facility] Comment on above: Performed By: #### B MP #### [facility] [address] [place] [address] Dr. Liban Whyte Urea nitrogen/Creatinine [Mass ratio] 22.0 mg/mg Normal [facility] Comment on above: Performed By: #### B MP #### [facility] [address] [address] [address] Liban Whyte CBC AUTO DIFFon 03-12-2023 BASO # 0.0 103/ul Normal 0.0-0.1 [facility] Comment on above: Performed By: #### C BC #### [facility] [address] [address] [address] Liban Whyte Basophils/100 WBC (Bld) 0.5 % Normal 0.2-2.0 [facility] Comment on above: Performed By: #### C BC #### [facility] [address] [address] [address] Liban Whyte EO # 0.1 103/ul Normal 0.0-0.7 [facility] Comment on above: Performed By: #### C BC #### [facility] [address] [address] [address] Liban Whyte Eosinophils/100 WBC (Bld) 1.1 % Normal 0.9-7.0 [facility] Comment on above: Performed By: #### C BC #### [facility] [address] [address] [address] Liban Whyte Erythrocyte distribution width (RBC) [Ratio] 13.5 % Normal 11.0-15.0 [facility] Comment on above: Performed By: #### C BC #### [facility] [address] [address] [address] Liban Whyte Hematocrit (Bld) [Volume fraction] 47.5 % Normal 42.0-54.0 [facility] Comment on above: Performed By: #### C BC #### [facility] [address] [address] [address] Liban Whyte Hemoglobin (Bld) [Mass/Vol] 16.2 g/dL Normal 14.0-18.0 [facility] Comment on above: Performed By: #### C BC #### [facility] [address] [address] [address] Liban Whyte IG # 0.04 10e3/ul Critically high 0.00-0.03 [facility] Comment on above: Performed By: #### C BC #### [facility] [address] [place] [address] Dr. Liban Whyte IG % 0.5 % Normal 0.0-0.5 [facility] Comment on above: Performed By: #### C BC #### [facility] [address] [place] [address] Dr. Liban Whyte LYMPH # 1.7 103/ul Normal 1.2-3.8 [facility] Comment on above: Performed By: #### C BC #### [facility] [address] [place] [address] Dr. Liban Whyte Lymphocytes/100 WBC (Bld) 22.9 % Normal 20.5-60.0 [facility] Comment on above: Performed By: #### C BC #### [facility] [address] [place] [address] Dr. Liban Whyte MANUAL DIFF REQ NO Normal [facility] Comment on above: Performed By: #### C BC #### [facility] [address] [place] [address] Dr. Liban Whyte MCH (RBC) [Entitic mass] 31.6 pg Normal 25.9-34.0 [facility] Comment on above: Performed By: #### C BC #### [facility] [address] [place] [address] Dr. Liban Whyte MCHC (RBC) [Mass/Vol] 34.1 g/dL Normal 29.9-35.2 [facility] Comment on above: Performed By: #### C BC #### [facility] [address] [place] [address] Dr. Liban Whyte MCV (RBC) [Entitic vol] 92.6 fL Normal 80.0-94.0 [facility] Comment on above: Performed By: #### C BC #### [facility] [address] [place] [address] Dr. Liban Whyte MONO # 0.7 103/ul Normal 0.3-0.8 [facility] Comment on above: Performed By: #### C BC #### [facility] [address] [place] [address] Dr. Liban Whyte Monocytes/100 WBC (Bld) 9.4 % Normal 1.7-12.0 [facility] Comment on above: Performed By: #### C BC #### [facility] [address] [place] [address] Dr. Liban Whyte NEUT # 4.8 103/ul Normal 1.4-6.5 [facility] Comment on above: Performed By: #### C BC #### [facility] [address] [place] [address] Dr. Liban Whyte Neutrophils/100 WBC (Bld) 65.6 % Normal 43.0-75.0 [facility] Comment on above: Performed By: #### C BC #### [facility] [address] [place] [address] Dr. Liban Whyte Platelet mean volume (Bld) [Entitic vol] 11.1 fL Normal 9.5-13.5 [facility] Comment on above: Performed By: #### C BC #### [facility] [address] [place] [address] Dr. Liban Whyte PLT 210 103/ul Normal 150-450 [facility] Comment on above: Performed By: #### C BC #### [facility] [address] [place] [address] Dr. Liban Whyte RBC 5.13 106/ul Normal 4.70-6.10 [facility] Comment on above: Performed By: #### C BC #### [facility] [address] [place] [address] Dr. Liban Whyte WBC 7.4 103/ul Normal 4.0-11.0 [facility] Comment on above: Performed By: #### C BC #### [facility] [address] [place] [address] Dr. Liban Whyte Consent for Procedure/Surger yon 03-12-2023 Consent for Procedure/Surgery [id number]#1.00C D:127 Normal [facility] Consent for Treatmenton Consent for Treatment [id number]#1.00CD :127 Normal [facility] Discharge Instructionson Discharge Instructions [id number]#1.00C D:127 Normal [facility] HIPAA Forms Officeon 023 HIPAA Forms Office [id number]#1.00C D:127 Normal [facility] IntraOperative Documentson 0 03-12-2023 IntraOperative Documents [id number]#1.00C D:127 Normal [facility] LIPID PROFILEon 03-12-2023 CHOL-HDL RATIO NORM SEE BELOW Normal [facility] Comment on above: Result Comment: 3.3 - 4.4 LOW RISK 4.4 - 7.1 AVERAGE RISK 7.1 - 11.0 MODERATE RISK >11.0 HIGH RISK Performed By: #### A ST, ALT, LIPID #### [facility] [address] [address] [address] Liban Whyte Cholesterol [Mass/Vol] 134 mg/dL Normal <=200 [facility] Comment on above: Performed By: #### A ST, ALT, LIPID #### [facility] [address] [address] [address] Liban Whyte Cholesterol in HDL [Mass/Vol] 62 mg/dL Critically high 40-60 [facility] Comment on above: Performed By: #### A ST, ALT, LIPID #### [facility] [address] [address] [address] Liban Whyte Cholesterol in LDL [Mass/Vol] 57.4 mg/dL Normal [facility] Comment on above: Performed By: #### A ST, ALT, LIPID #### [facility] [address] [address] [address] Liban Whyte Cholesterol.total/Ch olesterol in HDL [Mass ratio] 2.2 {ratio} Normal [facility] Comment on above: Performed By: #### A ST, ALT, LIPID #### [facility] [address] [address] [address] Liban Whyte HDL NORMAL > or = 60 mg/dl - LO W CARDIOVASCULAR RISK <40 mg/dl - HIGH CARDIOVASCULAR RISK Normal [facility] Comment on above: Performed By: #### A ST, ALT, LIPID #### [facility] [address] [place], [place] [address] Dr. Liban Whyte LDL CALC NORMAL SEE BELOW Normal [facility] Comment on above: Result Comment: <100 mg/dl OPTIMAL 100 - 129 mg/dl NEAR OR ABOVE OPTIMAL 130 - 159 mg/dl BORDERLINE HIGH 160 - 189 mg/dl HIGH >190 mg/dl VERY HIGH Performed By: #### A ST, ALT, LIPID #### [facility] [address] [address] [address] Liban Whyte Triglyceride [Mass/Vol] 73 mg/dL Normal <=150 [facility] Comment on above: Performed By: #### A ST, ALT, LIPID #### [facility] [address] [address] [address] Liban Whyte VLDL CALC 14.6 mg/dL Normal [facility] Comment on above: Performed By: #### A ST, ALT, LIPID #### [facility] [address] [address] [address] Liban Whyte Laboratory Outside Office Co pyon 03-12-2023 Laboratory Outside Office Copy [id number]#1.00C D:127 Normal [facility] Legal Correspondence Officeo n 03-12-2023 Legal Correspondence Office [id number]#1.00C D:127 Normal [facility] Legal Correspondence Office [id number]#1.00C D:127 Normal [facility] Main OR Intraoperative Recor don 03-12-2023 Main OR Intraoperative Record IntraOp Document Type FTPM Summary Primary Physician: Bib Sanchez MD Finalized Date/Time: 03/12/23 09:16:18 Pt. Name: RIDGE ROLAND [place]/Sex: 1945 Male Med Rec #: [id number] Physician: Bib Sanchez MD Financial #: [id number] Pt. Type: P Room/Bed: / Admit/Disch: 03/12/23 07:46:34 - Institution: Case Times FTPM Entry 1 Patient Times In Room 03/12/23 09:08:00 Out Room 03/12/23 09:14:00 Procedure Times Start 03/12/23 09:11:00 Stop 03/12/23 09:13:00 Anesthesia Times Last Modified By: Savannah Garrett RN 03/12/23 09:13:28 Case Attendance FTPM Entry 1 Entry 2 Entry 3 Case Attendee Fabi WALTERS, Bib Garrett RN, Savannah Tolentino RN, Emma Keenan Role Performed Surgeon - Primary Weather Analyst - Primary Scrub - Primary Time In 03/12/23 09:08:00 03/12/23 09:08:00 03/12/23 09:08:00 Time Out 03/12/23 09:14:00 03/12/23 09:14:00 03/12/23 09:14:00 Procedure MEDIAL BRANCH MEDIAL BRANCH MEDIAL BRANCH BLOCK(Bilateral) BLOCK(Bilateral) BLOCK(Bilateral) Comments Last Modified By: Gerry RN, Savannah Garrett RN, Savannah Tsai RN 03/12/23 09:13:28 03/12/23 09:13:28 03/12/23 09:13:28 Entry 4 Case Attendee Scott Craig Role Performed Engineering Surveyor Time In 03/12/23 09:08:00 Time Out 03/12/23 09:14:00 Procedure MEDIAL BRANCH BLOCK(Bilateral) Comments Last Modified By: Savannah Garrett RN 03/12/23 09:13:28 Perioperative Protocols FTPM Pre-Care Text: Implements protective measures prior to operative or invasive procedure, confirms identity before the operative or invasive procedure, verifies operative procedure, surgical site, and laterality Entry 1 Procedure(s) MEDIAL BRANCH Patient Identity Birthday, ID Band BLOCK(Bilateral) Verified (select at Check, Patient least 2): Participation Consents / H and P HandP, Surgery/Procedure Operative Site Present Verified Consent Marking Verified Surgical Site Yes Laterality Verified Yes Verified Procedure Verified Yes Correct Patient Yes Position Verified Availability Equipment, Medication, Prep Dry Yes Verified (If X-ray Applicable) PreOp Antibiotic No Time Out Savannah Garrett RN, Rajan JENNINGS, Fabi Chang MD, Kiara Bateman Bryce Time Out Complete 03/12/23 09:08:00 Outcomes Met? Yes Last Modified By: Savannah Garrett RN 03/12/23 09:08:34 Post-Care Text: The patient is free from signs and symptoms of injury caused by extraneous objects Allergy Information FTPM Pre-Care Text: Verifies allergies Entry 1 Allergies Reviewed? Yes Allergies Reviewed Self/Patient With Outcomes Met? Yes Last Modified By: Savannah Garrett RN 03/12/23 08:23:50 Post-Care Text: The patient received appropriate medication(s) safely administered during the perioperative period Surgical Procedures FTPM Entry 1 Procedure Description Procedure MEDIAL BRANCH BLOCK Modifiers Bilateral Surgeon Description L3-4 MBB Primary Procedure Yes Primary Surgeon Fabi WALTERS, Bib Jackson Start 03/12/23 09:11:00 Stop 03/12/23 09:13:00 Anesthesia Type None Surgical Service Pain Management Wound Class 1 - Clean Last Modified By: Savannah Garrett RN 03/12/23 09:13:31 General Case Data FTPM Pre-Care Text: Classifies surgical wound, implements aseptic technique, initiates traffic control Entry 1 Case Information OR Pain Proc Room Case Level Level 2 Wound Class 1 - Clean Specialty Pain Management Preop Diagnosis M47.816 Postop Same As Preop Yes Postop Diagnosis M47.816 Outcomes Met? Yes Last Modified By: Savannah Garrett RN 03/12/23 09:08:51 Post-Care Text: The patient is free from signs and symptoms of infection Skin Assessment (Pre Procedure) FTPM Pre-Care Text: Implements protective measures to prevent skin/ tissue injury due to thermal or mechanical sources Evaluates for signs and symptoms of physical injury to skin and tissue Entry 1 Skin Integrity Intact, [place], Warm, and Skin Abnormality No Dry Outcomes Met? Yes Last Modified By: Savannah Garrett RN 03/12/23 08:23:58 Post-Care Text: The patient is free from signs and symptoms of injury caused by extraneous objects Patient Positioning FTPM Pre-Care Text: Identifies physical alterations that require additional precautions for procedure-specific positioning, verifies presence of prosthetics or corrective devices, positions the patient, evaluates the patient for signs and symptoms of injury as a result of positioning Entry 1 Procedure MEDIAL BRANCH Body Position Prone BLOCK(Bilateral) Feet Uncrossed? Yes Left Arm Position Resting at Side Right Arm Position Resting at Side Left Leg Position Extended Right Leg Position Extended Positioning Device Pillow Under Head Large, Safety Strap, Pillow Large Under Knees Press Points Checked Yes By Savannah Garrett RN Outcomes Met? Yes Last Modified By: Savannah Garrett RN 03/12 (more content not included)... Normal [facility] Main OR Preoperative Recordo n 03-12-2023 Main OR Preoperative Record Holding Area Document Type FTPM Summary Primary Physician: Bib Sanchez MD Finalized Date/Time: 03/12/23 08:13:27 Pt. Name: RIDGE ROLAND John /Sex: 1945 Male Med Rec #: [id number] Physician: Bib Sanchez MD Financial #: [id number] Pt. Type: P Room/Bed: / Admit/Disch: 03/12/23 07:46:34 - Institution: Case Times Holding FTPM Pre-Care Text: Verifies consent for planned procedure, identifies individual values and wishes concerning care, includes family members in perioperative teaching Secures patient's records' belongings, and valuables, maintains patient's dignity and privacy, and maintains patient confidentiality Entry 1 In Holding 03/12/23 08:10:00 Outcomes Met? Yes Last Modified By: Sneha Beal RN 03/12/23 08:10:55 Post-Care Text: The patient participates in decisions affecting his or her perioperative plan of care The patient's right to privacy is maintained Surgery Checklist FTPM Entry 1 Patient Birthday, ID Band Procedure History and Physical, Identification: Check, Patient Verification: Surgical Consent, With Participation Patient NPO after Midnight: Yes Date/Time: 03/12/23 08:11:00 Personal Items: Cataract Lens Implant, Personal Items Pt. wearing glasses, Dentures, Glasses, Comment: two rings, watch and Jewelry upper dentures. He has a history of bilateral cataract lens implants. Complaints of Pain: Yes Pain Comment: 08/14 lower back pain Operative Site Yes Marked By: Dr. Sanchez Marking: Location: bilateral L3-L4 Availability Equipment, X-Ray Verified: Does Patient Smoke No Patient states Yes Comment - Adult -Itzle postop adult Supervision supervision available Case Cancelled in No Holding Area see comments below for reason Last Modified By: Sneha Beal RN 03/12/23 08:13:25 Finalized By: Sneha Beal RN Document Signatures Signed By: Sneha Beal RN 03/12/23 08:13 Normal [facility] Operative Reporton 3 Operative Report Patient: KEILA ROLAND Age: 77 years Sex: Male : 1945 Associated Diagnoses: None Author: Fabi WALTERS, Bib Jackson Procedure Procedure: Lumbar Facet Medial Branch Blocks to the Bilateral L3/4 Facet Joints with Fluoroscopic Guidance 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 A full history and PE was performed. Patient with hx of L4/5 and L3/4 fusion and removal of hardware. Pain is with position transition and is in the L>R low back. Does not radiate. Has peripheral neuropathy which makes walking difficult. The patient was referred directly by Dr. Kenyon for bilateral L3/4 facet blocks. The procedure, including risks benefits and alternatives was discussed with the patient. The patient agreed to proceed. Informed consent was obtained and the site(s) marked. The patient was brought to the procedure room and placed in the prone position with padding under the abdomen to reduce lumbar lordosis. Time out was performed. The back was prepped and draped in sterile fashion with Chloraprep. Skin and subcutaneous tissues were anesthetized with 6 mL of Lidocaine 2% through a 25G needle. 22G spinal needles were then advanced under fluoroscopic guidance to the locations of the medial branch (dorsal rami) nerves to the bilateral L3/4 facet joints. 0.1 mL of Isovue contrast was injected at each level demonstrating appropriate spread without vascular uptake. After confirmation of negative aspiration, 0.5mL of 0.5% bupivacaine was injected at each level. The needles were removed and bandages applied. The patient was brought to the recovery area in stable condition and then monitored for an appropriate period of time. The patient was discharged home in good condition with post-procedure instructions. No apparent complications. Epidural injection procedure Physical Exam: vital signs Vital Signs 03/12/2023 9:11 EDT Heart Rate Monitored 70 bpm Respiratory Rate 14 br/min Systolic Blood Pressure 160 mmHg HI Diastolic Blood Pressure 67 mmHg SpO2 94 % 03/12/2023 8:09 EDT Heart Rate Monitored 71 bpm SpO2 95 % 03/12/2023 8:09 EDT Systolic Blood Pressure 168 mmHg HI Diastolic Blood Pressure 69 mmHg Mean Arterial Pressure, Monitered 102 mmHg 03/12/2023 8:09 EDT Temperature Oral 36.4 DegC 03/12/2023 8:09 EDT Respiratory Rate 12 br/min LOW . Normal [facility] Comment on above: Result Comment: Elec tronically Signed By: Fabi WALTERS, Bib Jackson\.br\Date and Time Signed: 03/12/23 09:16 EDT Outside Records Officeon Outside Records Office [id number]#1.00C D:127 Normal [facility] Patient Correspondenceon Patient Correspondence [id number]#1.00C D:127 Normal [facility] Patient Correspondence [id number]#1.00C D:127 Normal [facility] Patient Correspondence [id number]#1.00C D:127 Normal [facility] Patient Correspondence [id number] D:127 Normal [facility] Patient Correspondence [id number]#1.00C D:127 Normal [facility] SGOTon 03-12-2023 AST [Catalytic activity/Vol] 56 U/L Critically high 15-37 [facility] Comment on above: Performed By: #### A ST, ALT, LIPID #### [facility] [address] [place] [address] Dr. Liban Whyte [facility] 03-12-2023 ALT [Catalytic activity/Vol] 29 U/L Normal 16-63 [facility] Comment on above: Performed By: #### A ST, ALT, LIPID #### [facility] [address] [address] [address] Liban Whyte Office Visit (Cardiology)on 03-08-2023 Follow-up visit Diagnoses/Problems Assessed Arteriosclerosis of coronary artery (414.00) (I25.10) BPH (benign prostatic hyperplasia) (600.00) (N40.0) Dyslipidemia (272.4) (E78.5) Essential hypertension (401.9) (I10) Status post coronary angioplasty (V45.82) (Z98.61) Never a smoker Overweight with body mass index (BMI) of 29 to 29.9 in adult (278.02,V85.25) (E66.3,Z68.29) Orders Arteriosclerosis of coronary artery, Dyslipidemia, Essential hypertension ALT - Alanine Aminotransferase, Serum; Status:Active - Retrospective Authorization; Requested for:08Mar2023; AST; Status:Active - Retrospective Authorization; Requested for:08Mar2023; Basic Metabolic Panel; Status:Active - Retrospective Authorization; Requested for:08Mar2023; Complete Blood Count; Status:Active - Retrospective Authorization; Requested for:08Mar2023; Lipid Panel; Status:Active - Retrospective Authorization; Requested for:08Mar2023; Overweight with body mass index (BMI) of 29 to 29.9 in adult Healthy Weight Tips; Status:Complete - Retrospective Authorization; Done: 08Mar2023 Some eating tips that can help you lose weight.; Status:Complete - Retrospective Authorization; Done: 08Mar2023 SocHx: Never a smoker Tobacco Use Screening; Status:Complete; Done: 08Mar2023 Patient Instructions Please bring all medicines, vitamins, and herbal supplements with you when you come to the office. Prescriptions will not be filled unless you are compliant with your follow up appointments or have a follow up appointment scheduled as per instruction of your physician. Refills should be requested at the time of your visit. Follow up in [6 ] months Chief Complaint RIDGE ROLAND is being seen for a 6 month follow-up of. Patient is in the office for follow-up for the problems noted below. He came with his . His main problem is neuropathy that limit his physical activity considerably. From the angina standpoint he has been stable with no recurrent symptoms. He is compliant with medical therapy. There has been no blood work since he was last seen in the office 6 months ago. His review of system essentially unremarkable physical examination was unremarkable for overweight. Assessment/recommendati ons: 1?coronary artery disease status post angioplasty of the ostial right coronary artery June 2019 for 80% stenosis with drug-eluting stent. Currently he is on guideline directed medical therapy for chronic ischemic heart disease and stable 2?hypertension on medical therapy presently under control, basic metabolic profile is ordered. 3?overweight. encouragement for weight loss was provided emphasizing low calorie diet 4?hyperlipidemia on statin therapy. Lipid profile is ordered 5?Severe peripheral neuropathy limit his daily activities 6?chronic arthritis which limits the patient's mobility. Current Meds Medication NameInstruction Allopurinol 300 MG Oral TabletTAKE 1 TABLET DAILY. amLODIPine Besylate 5 MG Oral TabletTAKE 1 TABLET DAILY. Aspirin 81 MG Oral Tablet Delayed ReleaseTAKE 1 TABLET DAILY. Atorvastatin Calcium 40 MG Oral TabletTAKE 1 TABLET BY MOUTH EVERY DAY Calcium + D TABSTAKE 1 TABLET DAILY. hydroCHLOROthiazide 25 MG Oral TabletTAKE 1 TABLET DAILY. Klor-Con M20 20 MEQ Oral Tablet Extended ReleaseTake 1 tablet daily Nitroglycerin 0.4 MG Sublingual Tablet SublingualTAKE DIRECTED. Solifenacin Succinate 10 MG Oral TabletTAKE ONE TABLET BY MOUTH EVERY DAY Vitamin B12 1000 MCG Oral Tablet Extended ReleaseTAKE 1 TABLET DAILY DIRECTED. Vitamin C 1000 MG Oral TabletTAKE 1 TABLET DAILY. Viteyes Complete CAPSTAKE 1 CAPSULE Daily Allergies Medication HYDROcodone-Acetaminoph en TABS Allergy; Hallucinations;; Recorded By: Alanis Ku; 03/28/2022 1:42:41 PM Social History Problems Daily caffeine consumption, 2-3 servings a day Never a smoker No illicit drug use Social alcohol use (V49.89) (Z78.9) Review of Systems Constitutional: not feeling tired. Cardiovascular: no intermittent leg claudication and as noted in HPI. Respiratory: no cough and no shortness of breath. Gastrointestinal: no change in bowel habits and no blood in stools. Integumentary: no skin rashes. Neurological: no seizures and no frequent falls. All other systems have been reviewed and are negative for complaint. Vitals Vital Signs Recorded: 08Mar2023 09:32AM Heart Rate68, L Radial [id number], LUE, Sitting Unpvtxele87, LUE, Sitting Height6 ft 4 in Ezhsbj271 lb BMI Thplejhmio81.21 kg/m2 BSA Calculated2.39 Tobacco Useb) No PHQ-2 #1. Over the last 2 weeks have you felt down, depressed or hopeless? (If yes, answer PHQ-9 below)No PHQ-2 #2. Over the last 2 weeks have you felt little interest or pleasure in doing things? (If yes, answer PHQ-9 below)No Falls Screening (Age 18+)a) No falls within the last year Physical Exam Constitutional: alert and in no acute distress. Neck: neck is supple, symmetric, trachea midline, no masses and no thyromegaly (more content not included)... Normal [employer] Tobacco Screening.on 023 Adult depression screening assessment No [facility] y 250 DO Work Phone: Fall risk assessment a) No falls within the last year [facility] 250 DO Work Phone: Tobacco use status [facility] b) No [facility] 250 DO Work Phone: Patient Correspondenceon Patient Correspondence [id number]#1.00 CD:127 Normal [facility] Insurance Correspondence Off iceon 02-22-2023 Insurance Correspondence Office [id number]#1.00 CD:127 Normal [facility] Outside Records Officeon Outside Records Office [id number]#1.00 CD:127 Normal [facility] Radiology Outside Office 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 Technician yon 02-22-2023 Radiology Outside Office Copy [id number]#1.00 CD:127 Normal [facility] Referrals Officeon Referrals Office [id number]#1.00 CD:127 [facility] Pre-Certification Formon Pre-Certification Form [id number]#1.00C D:127 Normal [facility] Ambulatory Visit Summaryon 0 01-10-2023 Ambulatory Visit Summary RIDGE ROLAND :1945 Visit Date:01/10/2023 Ambulatory Visit Instructions Your Diagnosis Incontinence without sensory awareness Your Care Team Attending Physician - ALANIS LAYTON PA-C Primary Care Physician - DEVANG HALL DO This Is Your Medications List allopurinol (allopurinol 100 mg Tab) amlodipine ascorbic acid (Vitamin C 1000 mg oral tablet) aspirin (aspirin 81 mg oral tablet) atorvastatin (Lipitor 40 mg Tab) calcium-vitamin D (Calcium 600+D oral tablet) cyanocobalamin (Vitamin B12 1000 mcg Tab) hydrochlorothiazide lutein potassium chloride (Klor-Con M20) sildenafil (Viagra 50 mg Tab) solifenacin (Vesicare 10 mg Tab) Procedures Performed Injection of therapeutic substance into bladder wall (05/11/2022), Blepharoplasty (02/07/2021), Cystourethroscopy with dilation of urethral stricture (12/02/2020), Cataract extraction and insertion of intraocular lens (11/02/2020), TURP - Transurethral resection of prostate (04/28/2020), Cystourethroscopy with dilation of urethral stricture (12/08/2019), back surgery (10/16/2019), Placement of stent in cardiac conduit (06/16/2019), inguinal hernia repair (2017), TURP - Transurethral resection of prostate (07/12/2016), Cystoscopy (06/23/2016), Laser ablation of prostate (03/14/2013), Urodynamics (02/13/2013), Arthroscopy of knee joint, Back, CE - Cataract extraction, Release of trigger finger. Discharge Vitals Heart Rate (Peripheral) 88 Blood Pressure 134/82 Height 193 cm Height 76 in Weight 114 kg Weight 250.8 lb BMI 30.6 Medications What How Much When Instructions Unchanged allopurinol (allopurinol 100 mg Tab) 1 Tablets By Mouth Every day Unchanged amlodipine 5 Milligram By Mouth Every day Unchanged ascorbic acid (Vitamin C 1000 mg oral tablet) 1 Tablets By Mouth Every day Unchanged aspirin (aspirin 81 mg oral tablet) 1 Tablets By Mouth Every day Unchanged atorvastatin (Lipitor 40 mg Tab) 1 Tablets By Mouth Every day Unchanged calcium-vitamin D (Calcium 600+D oral tablet) 1 Tablets By Mouth Every day Unchanged cyanocobalamin (Vitamin B12 1000 mcg Tab) 1 Tablets By Mouth Every day Unchanged hydrochlorothiazide 25 Milligram By Mouth Every day Unchanged lutein 5MG/25MG By Mouth Every day Unchanged potassium chloride (Klor-Con M20) 1 tab By Mouth Every day Unchanged sildenafil (Viagra 50 mg Tab) See instructions 1-2 tab(s) po 1 hr before sexual acitivity. do not exceed 2 tabs in 24 hrs. Unchanged solifenacin (Vesicare 10 mg Tab) 1 Tablets By Mouth Every day Duration: 30 Days Allergies oxyCODONE (Visual hallucinations) oxybutynin (Hallucinations) Problems Ongoing - Any problem that you are currently receiving treatment for. 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 Erectile dysfunction may include: ? Inability to get an erection. ? Lack of enough hardness of the erection to allow penetration. ? Loss of the erection before sex is finished. What are the causes? This condition may be caused by: ? Certain medicines, such as: ? Pain relievers. ? Antihistamines. ? Antidepressants. ? Blood pressure medicines. ? Water pills (diuretics). ? Ulcer medicines. ? Muscle relaxants. ? Drugs. ? Excessive drinking. ? Psychological causes, such as: ? Anxiety. ? Depression. ? Sadness. ? Exhaustion. ? Performance fear. ? Stress. ? Physical causes, such as: ? Artery problems. This may include diabetes, smoking, liver disease, or atherosclerosis. ? High blood pressure. ? Hormonal problems, such as low testosterone. ? Obesity. ? Nerve problems. This may include back or pelvic injuries, diabetes mellitus, multiple sclerosis, or Parkinson disease. What are the signs or symptoms? Symptoms of this condition include: ? Inability to get an erection. ? Lack of enough hardness of the erection to allow penetration. ? Loss of the erection before sex is finished. ? Normal erections at some times, but with frequent unsatisfactory episodes. ? Low sexual satisfaction in either partner due to erection problems. ? A curved penis occurring with erection. The curve may cause pain or the penis may be too curved to allow for intercourse. ? Never having nighttime erections. How is this diagnosed? This condition is often diagnosed by: ? Performing a physical exam to find other diseases or specific problems with the penis. ? Asking you detailed questions about the problem. ? Performing blood tests to check for diabetes mellitus or to measure hormone levels. ? Performing other tests to check for underlying health conditions. ? Performing an ultrasound exam to check for scarring. ? Performing a test to check blood flow to the penis. ? Doing a sleep study at home to measure nighttime erections. How is this treated? This condition may be treated by: ? Medicine taken by mouth to help you achieve an erection (oral medicine). ? Hormone replacement therapy to replace low testosterone levels. ? Medicine that is injected into the penis. Your health care provider may instruct you how to give yourself these injections at home. ? Vacuum pump. This is a pump with a ring on it. The pump and ring are placed on the penis and used to create pressure that helps the penis become erect. ? Penile implant surgery. In this procedure, you may receive: ? An inflatable implant. This consists of cylinders, a pump, and a reservoir. The cylinders can be inflated with a fluid that helps to create an erection, and they can be deflated after intercourse. ? A semi-rigid implant. This consists of two silicone rubber rods. The rods provide some rigidity. They are also flexible, so the penis can both curve downward in its normal position and become straight for sexual intercourse. ? Blood vessel surgery, to improve blood flow to the penis. During this procedure, a blood vessel from a different part of the body is placed into the penis to allow blood to flow around (bypass) damaged or blocked blood vessels. ? Lifestyle changes, such as exercising more, losing weight, and quitting smoking. Follow these instructions at home: Medicines ? Take ywwo-tou-symnrfv and prescription medicines only as told by your health care provider. Do not increase the dosage without first discussing it with your health care provider. ? If you are using self-injections, perform injections as directed by your health care provider. Make sure to avoid any veins that are on the surface of the penis. After giving an injection, apply pressure to the injection site for 5 minutes. General instructions ? Exercise regularly, as directed by your health care provider. Work with your health care provider to lose weight, if needed. ? Do not use any products that contain nicotine or tobacco, such as cigarettes and e-cigarettes. If you need help quitting, ask your health care provider. ? Before using a vacuum pump, read the instructions that come with the pump and discuss any questions with your health care provider. ? Keep all follow-up visits as told by your health care provider. This is important. Contact a health care provider if: ? You feel nauseous. ? You vomit. Get help right away if: ? You are taking oral or injectable medicines and you have an erection that lasts longer than 4 hours. If your health care provider is unavailable, go to the nearest emergency room for evaluation. An erection that lasts much longer than 4 hours can result in permanent damage to your penis. ? You have severe pain in your groin or abdomen. ? You develop redness or severe swelling of your (more content not included)... Normal [facility] [place] [facility] [facility] (Inserted Image. Luba ble to display) January 10, 2023 [employer] Attn: Medicare Reviews [address] [address] [place] [address] Fax I am writing this letter on behalf of my patient RIDGE ROLAND to request a coverage exception for: SOLIFENACIN 10MG TABLET This patient previously tried OXYBUTYNIN and it caused intolerable side effects This patient previously tried TROSPIUM and it was not effective This patient is currently taking SOLIFENACIN 10MG TABLET and it is effective and does not cause intolerable side effects. The requested drug is medically necessary for treating this patient's condition because the other drugs on formulary would be less effective or would have adverse effects for this patient. Alanis Layton PA-C [facility] This patient previously tried TOLTERODINE and it was not effective. This patient previously tried MIRABEGRON and it was not effective and it was cost prohibitive. [facility] Patient [place] [facility] [place]Inserted Image. Luba ble to display) January 10, 2023 [employer] Attn: Medicare Reviews [address] [address] [place] [address] Fax I am writing this letter on behalf of my patient RIDGE ROLAND to request a coverage exception for: SOLIFENACIN 10MG TABLET This patient previously tried OXYBUTYNIN and it caused intolerable side effects This patient previously tried TROSPIUM and it was not effective This patient is currently taking SOLIFENACIN 10MG TABLET and it is effective and does not cause intolerable side effects. The requested drug is medically necessary for treating this patient's condition because the other drugs on formulary would be less effective or would have adverse effects for this patient. Alanis Layton PA-C [facility] Urology Office/Clinic Noteon 01-10-2023 Urology Office/Clinic Note Chief Complaint Pt is here for 6 week f/u HPI Staff [place] is a 77 y.o. male here for 6 week follow up to new medication. Previous Dx: BPH w/ urinary obstruction, chronic prostatitis, dysuria, ED, elevated PSA, gross hematuria, impotence, incomplete bladder emptying, incontinence w/o sensory awareness, leaking of urine, nocturia, post void dribbling, urge incontinence, urinary frequency, urinary retention, weak urine stream. S/P BOTOX done on 05/11/22, cysto/UD done on 12/05/21, TURP done on 04/28/20, laser ablation of prostate done on 03/14/13, Urodynamics done on 02/13/13. Previous PVR 56 done on 08/31/22. Previous PSA 0.91 done on 06/13/21, 1.75 done on 11/26/19. Pt states VESIcare is working much better for him, no repeat BOTOX needed at this time. Dysuria: denies Incomplete bladder emptying: denies Hematuria: denies Frequency: 1-2x an hour Urgency: on occasion Nocturia: 1-2x a night Stream: steady stream Leaking: mild Post void dripping: denies Wearing pads/ Depends: yes wears pads Urge incontinence: denies Stress incontinence: denies Incontinence without Sensory Awareness: denies Abdominal pain: denies Flank pain: denies Sexual complaints: _ Review of Systems PHQ Score Initial Depression Screen Score: 0 no fever, chills, malaise, myalgia. no rash/lesions. no chest pain, palpitations, or SOB. no abdominal pain, nausea, vomiting. no unilateral calf swelling, redness, pain Physical Exam Vitals & Measurements HR: 88(Peripheral) BP: 134/82 HT: 76 in HT: 193 cm WT: 114 kg WT: 250.8 lb BMI: 30.6 General: nontoxic, NAD Mouth: moist mucosa Lungs: normal respiratory effort Cardio: regular rate, good distal perfusion Abdomen: nondistended, no suprapubic distention or tenderness, no CVA tenderness Neurologic: Grossly normal Skin: No rashes or suspicious lesions Assessment/Plan 1. 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 Does not wish to repeat Botox yet. His daughter was recently diagnosed with cancer, he's been taking her to a lot of appointments. Discussed bladder irritants- pt does have 2c coffee in morning and drinks alcohol (rum) in the afternoon/evening. This patient previously tried OXYBUTYNIN and it caused intolerable side effects. This patient previously tried TROSPIUM and it was not effective. This patient previously tried TOLTERODINE and it was not effective. This patient previously tried MIRABEGRON and it was not effective and it was cost prohibitive. This patient is currently taking SOLIFENACIN 10MG TABLET and it is effective and does not cause intolerable side effects. Pt is pleased with current regimen. However he received a coverage denial letter from [employer]. This was scanned in today. Will send letter for coverage appeal. Ordered: E&M of Est. Patient Moderate 30-39 Min 24311 2. BPH with urinary obstruction (N40.1: Benign prostatic hyperplasia with lower urinary tract symptoms) S/p Cysto w/ UD done 12/05/21 and 12/02/20. S/P TURP done 04/28/20. Pt is not currently taking any BPH medications at this time. Ordered: E&M of Est. Patient Moderate 30-39 Min 78915 3. Incomplete bladder emptying (R39.14: Feeling of incomplete bladder emptying) unable to perform today as pt was unable to urinate. does feel like he's emptying well. no issues w recurrent UTIs. PVR: 12/27/21 - 94 cc 05/30/22 - 225 cc (after botox) 08/31/22 - 56 cc (improved) Ordered: E&M of Est. Patient Moderate 30-39 Min 69009 4. ED (erectile dysfunction) (N52.9: Male erectile dysfunction, unspecified) Pt continues using Viagra 50mg PRN therapy. Effective. No bothersome side effects. Received cardiac clearance from PCP to start this med (had cardiac stent placed and hx of blood thinner use). Ordered: E&M of Est. Patient Moderate 30-39 Min 34942 5. Prostate cancer screening (Z12.5: Encounter for screening for malignant neoplasm of prostate) PSA Nov 2019 - 1.75 and Jun 2021 - 0.91 I discussed stopping the PSA checks, due to the PSA stability, and his advancing age. He is aware that his chances of developing and having problems from prostate cancer at this point are quite low. He agrees to stop the PSA checks. Ordered: E&M of Est. Patient Moderate 30-39 Min 60094 Other obstructive and reflux uropathy (N13.8: Other obstructive and reflux uropathy) prefers to call when he's ready to schedule next Botox instillation as opposed to scheduling a follow up. Total time spent reviewing previous notes/results/external documents, preparing the chart, conducting the encounter with the patient and family, ordering tests/medications, and documenting the encounter was 30 minutes. Follow-up No qualifying data available pt will call Patient Education Erectile Dysfunction Problem List/Past Medical History Ongoing Anticoagulated At risk for falls BMI 31.0-31.9,adult BPH with urinary obstruction Chronic (more content not included)... Normal [facility] Comment on above: Result Comment: Elec tronically Signed By: NINA SHIPMAN, ALANIS E\.br\Date and Time Signed: 01/10/23 12:06 EST CREATININEon 11-14-2022 Creatinine [Mass/Vol] 1.10 mg/dL Normal 0.70-1.30 [facility] Comment on above: Performed By: #### C AIME #### [facility] [address] [address] [address] Liban Whyte EGFR-AF FAROESE >60 Normal >=60 [facility] Comment on above: Performed By: #### C AIME #### [facility] [address] [address] [address] Liban Whyte EGFR-NON AF FAROESE >60 Normal >=60 [facility] Comment on above: Performed By: #### C AIME #### [facility] [address] [place] [address] Dr. Liban Whyte MRI LSPINE WO W CONon 2022 MRI LSPINE WO W CON EXAMINATION: MRI LSP INE WO W CON HISTORY: Spondylosis without myelopathy ; chronic lumbar and bilateral leg pain COMPARISON: MRI L-spine 10/14/2018 TECHNIQUE: A variety of imaging planes and parameters were utilized for visualization of suspected pathology. FINDINGS: For the purposes of numbering, sagittal T2 image # 8 extends from the T12 vertebral body superiorly to the S3 level inferiorly. PARASPINAL AREA: Normal with no visible mass. BONES: Posterior decompression L4 and L5. No fracture, spondylolisthesis, bone lesion. Mild, fatty degenerative endplate changes L4, L5, S1. Evidence of prior posterior mechanical fusion of L4-5-S1 with hardware having been removed. CORD/CAUDA EQUINA: Normal caliber, contour, and signal intensity. DISC LEVELS: 12-L1: No significant disc/facet abnormality, spinal stenosis, or foraminal stenosis. L1-L2: No significant disc/facet abnormality, spinal stenosis, or foraminal stenosis. L2-L3: Mild foramen narrowing bilaterally secondary to mild diffuse disc bulging and mild degenerative facet arthropathy. L3-L4: Moderate central canal and marked bilateral foramen narrowing. Moderate diffuse disc bulging and mild disc at reduction. Marked degenerative facet arthropathy and moderate ligamentum flavum thickening bilaterally. Posterior decompression of L4. A prominent posterior scarring protruding into posterior central canal causing moderate narrowing. L4-L5: Widely patent central canal. Moderate-marked foramen narrowing, right greater than left. Minimal diffuse disc bulging. Marked degenerative facet arthropathy. Posterior decompression with soft tissue scarring. L5-S1: Widely patent central canal. Moderate-marked foramen narrowing bilaterally. Mild disc at reduction. Marked degenerative facet arthropathy and posterior decompression with posterior soft tissue scarring. IMPRESSION: 1. Interval removal of hardware from prior posterior mechanical fusion of L3-4 and 5. 2. Moderate marked foramen narrowing L3-4 through L5-S1 secondary to degenerative disc disease, but predominantly facet arthropathy. 3. Posterior decompression L4 and L5 with prominent posterior soft tissue scarring. Scarring protrudes into the central canal causing moderate narrowing at L3-4. 4. No appreciable significant change in central canal or foramen narrowing, or chronic degenerative changes. Electronically authenticated by: KIRK STREETER Date: 2022-11-14 11:16 Normal [facility] Office Visit (Cardiology)on 09-26-2022 Follow-up visit Diagnoses/Problems Assessed Arteriosclerosis of coronary artery (414.00) (I25.10) Status post coronary angioplasty (V45.82) (Z98.61) Essential hypertension (401.9) (I10) Dyslipidemia (272.4) (E78.5) Never a smoker Overweight with body mass index (BMI) of 29 to 29.9 in adult (278.02,V85.25) (E66.3,Z68.29) Joint pain (719.40) (M25.50) At risk for falls (V15.88) (Z91.81) Orders Arteriosclerosis of coronary artery Start: Nitroglycerin 0.4 MG Sublingual Tablet Sublingual; TAKE DIRECTED Overweight with body mass index (BMI) of 29 to 29.9 in adult Healthy Weight Tips; Status:Complete - Retrospective Authorization; Done: 26Sep2022 Some eating tips that can help you lose weight.; Status:Complete - Retrospective Authorization; Done: 26Sep2022 SocHx: Never a smoker Tobacco Use Screening; Status:Complete; Done: 26Sep2022 Patient Instructions Please bring all medicines, vitamins, and herbal supplements with you when you come to the office. Prescriptions will not be filled unless you are compliant with your follow up appointments or have a follow up appointment scheduled as per instruction of your physician. Refills should be requested at the time of your visit. Fall Prevention education given Follow up in 6 months Chief Complaint RIDGE ROLAND is being seen for a 6 month follow-up of. Patient is in the office with his for follow-up for the problems noted below. He reports no indication of angina pectoris. His arthritis it is still a problem for ambulation but despite that he lost nearly 10 pounds from last visit. His lab data from recent testing were reviewed and shared with him with no areas of concern noted. He had a fall over the summer which was accidental and education was provided to prevent future falls. He follows with PCP Dr. Hall on regular basis. Upcoming lab data should be forwarded to my attention. His card examination is normal his lungs sounded normal. He does not have any lower extremity edema. He does not have any side effect of current medications. Assessment/recommendati ons: 1?coronary artery disease status post angioplasty of the ostial right coronary artery June 2019 for 80% stenosis with drug-eluting stent. Currently he is on guideline directed medical therapy for chronic ischemic heart disease and stable 2?hypertension on medical therapy presently under control 3?overweight. Patient lost nearly 10 pounds from last visit and encouragement for more weight loss was provided 4?hyperlipidemia on statin therapy. Lipid profile is under excellent control with no side effects 5?Severe peripheral neuropathy limit his daily activities 6?chronic arthritis which limits the patient's mobility. He was advised that he can utilize Aleve if he wanted to 7?patient is at risk for falls, education was provided to prevent future falls. Past Medical History Problems History of hypokalemia (V12.29) (Z86.39) Resolved Date: 26 Sep 2022 Current Meds Medication NameInstruction Allopurinol 300 MG Oral TabletTAKE 1 TABLET DAILY. amLODIPine Besylate 5 MG Oral TabletTAKE 1 TABLET DAILY. Aspirin 81 MG Oral Tablet Delayed ReleaseTAKE 1 TABLET DAILY. Atorvastatin Calcium 40 MG Oral TabletTAKE 1 TABLET BY MOUTH EVERY DAY Calcium + D TABSTAKE 1 TABLET DAILY. hydroCHLOROthiazide 25 MG Oral TabletTAKE 1 TABLET DAILY. Klor-Con M20 20 MEQ Oral Tablet Extended ReleaseTAKE 1 TABLET BY MOUTH EVERY DAY Vitamin B12 1000 MCG Oral Tablet Extended ReleaseTAKE 1 TABLET DAILY DIRECTED. Vitamin C 1000 MG Oral TabletTAKE 1 TABLET DAILY. Viteyes Complete CAPSTAKE 1 CAPSULE Daily Allergies Medication HYDROcodone-Acetaminoph en TABS Allergy; Hallucinations;; Recorded By: Alanis Ku; 03/28/2022 1:42:41 PM Social History Problems Daily caffeine consumption, 2-3 servings a day Never a smoker No illicit drug use Social alcohol use (V49.89) (Z78.9) Review of Systems Constitutional: not feeling tired. Cardiovascular: no intermittent leg claudication and as noted in HPI. Respiratory: no cough and no shortness of breath. Gastrointestinal: no change in bowel habits and no blood in stools. Integumentary: no skin rashes. Neurological: no seizures and no frequent falls. All other systems have been reviewed and are negative for complaint.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 vision, hearing C (more content not included)... Normal [facility] LUMBAR SPINE 2 OR 3 VIEWSon 08-25-2020 LUMBAR SPINE 2 OR 3 VIEWS STUDY: LUMBAR SPINE 2 OR 3 VIEWS; ; 08/25/2020 8:28 am INDICATION: PAIN. COMPARISON: None. ACCESSION NUMBER(S): [id number] ORDERING CLINICIAN: Haseeb Arcos FINDINGS: No acute fracture dislocation. 5 lumbar vertebral bodies are identified. Status post the decompression laminectomy at L4 and L5 level. Moderate facet arthropathy at L4-L5 and L5-S1 resulting in aian-jw-ruucawru neural foraminal stenosis. The vertebral alignment is normal. The vertebral body heights are maintained. Mild decrease in intervertebral disc space at all levels. Nonspecific bowel gas pattern. Atherosclerotic calcifications of the abdominal aorta. IMPRESSION: Decompression laminectomy at L4 and L5 levels. Moderate facet arthropathy at L4-L5 and L5-S1 levels resulting in jqqw-xm-gvqzcvhx bilateral neural foraminal stenosis. Normal [facility] LUMBAR SPINE 2 OR 3 VIEWSon 10-31-2019 LUMBAR SPINE 2 OR 3 VIEWS STUDY: LUMBAR SPINE 2 OR 3 VIEWS;; 10/31/2019 10:43 am INDICATION: PAIN. COMPARISON: None. ACCESSION NUMBER(S): [id number] ORDERING CLINICIAN: Haseeb Arcos FINDINGS: No acute fracture dislocation. 5 lumbar vertebral bodies are identified. The vertebral alignment is normal. The vertebral body heights are maintained. Moderate anterior sparing at L3 and L4 levels. Severe facet arthropathy at L3-L4, L4-L5 and L5-S1. Decompression laminectomy at L4 and L5 level has been performed. Intervertebral disc spacer at L5-S1 is visualized. Atherosclerotic calcifications of the abdominal aorta. No specific bowel gas pattern. IMPRESSION: 1. Postsurgical changes of a decompression laminectomy at L4 and L5 levels. 2. Severe facet arthropathy at L3-L4 through L5-S1. Normal [facility] Basic Metabolic Panel Reflex Mgon 04-12-2018 Anion gap 13 mmol/L Normal 7-13 [facility] Calcium 8.5 mg/dL Low 8.6-10.2 [facility] Chloride 95 mmol/L Low 98-107 [facility] CO2 25 mmol/L Normal 22-29 [facility] Creatinine 0.76 mg/dL Normal 0.70-1.20 [facility] eGFR (black) mL/min/{1.73_m2} Normal >60 [facility] Comment on above: Result Comment: >60 mL/min/1.73m2 EGFR, calc. for ages 18 and older using theMDRD formula (not corrected for weight), is valid for stablerenal function. eGFR (MDRD) mL/min/{1.73_m2} Normal >60 [facility] Comment on above: Result Comment: >60 mL/min/1.73m2 EGFR, calc. for ages 18 and older using theMDRD formula (not corrected for weight), is valid for stablerenal function. Glucose mass conc 173 mg/dL Critically high 74-109 [facility] Potassium molar conc 3.7 mmol/L Normal 3.5-5.1 [facility] Sodium 133 mmol/L Normal 132-144 [facility] Urea nitrogen 13 mg/dL Normal 8-23 [facility] CBC With Platelet and Differ entialon 04-12-2018 Basophils Auto #/vol (Bld) 0.0 10*3/uL Normal 0.0-0.2 [facility] Basophils/100 WBC Auto (Bld) 0.1 % Normal [facility] Eosinophils 0.0 10*3/uL Normal 0.0-0.7 [facility] Eosinophils/100 leukocytes 0.0 % Normal [facility] Erythrocyte distribution width Auto Ratio (RBC) 13.7 % Normal 11.5-14.5 [facility] Erythrocytes (RBC) 4.62 10*6/uL Low 4.70-6.10 [facility] Hematocrit (HCT) 42.3 % Normal 42.0-52.0 [facility] Hemoglobin mass conc (Bld) 14.1 g/dL Normal 14.0-18.0 [facility] Lymphocytes 0.8 10*3/uL Low 1.0-4.8 [facility] Lymphocytes/100 leukocytes 4.8 % Normal [facility] MCH 30.4 pg Normal 27.0-31.3 [facility] MCHC mass conc (RBC) 33.2 % Normal 33.0-37.0 [facility] MCV 91.6 fL Normal 80.0-100.0 [facility] Monocytes 0.9 10*3/uL Critically high 0.2-0.8 [facility] Monocytes/100 leukocytes 5.4 % Normal [facility] Neutrophils 14.6 10*3/uL Critically high 1.4-6.5 [facility] Neutrophils/100 leukocytes 89.7 % Normal [facility] Platelets 194 10*3/uL Normal 130-400 [facility] WBC (Leukocytes) 16.2 10*3/uL Critically high 4.8-10.8 [facility] XR LUMBAR SPINE (2-3 VIEWS)o n 04-12-2018 XR LUMBAR SPINE (2-3 VIEWS) X-RAY: LUMBAR SPINE, 3 VIEWS:COMPARISONS: None available.CLINICAL HISTORY: post op FINDINGS: Pedicle screws have been placed laterally at the L4, L5 and S1 vertebral levels. There are vertical connecting rods between the screws. There is good alignment of the spine present. No fracture or spondylolisthesis is seen. Intervertebral spacers inserted at the L5-S1 level. Other disc heights are fairly well-maintained. Anterior spurring at the L2-3 and L3-4 disc levels. There are atherosclerotic calcifications in the aorta and iliac arteries. SI joints and sacrum are unremarkable.IMPRESSION : STATUS POST POSTERIOR FUSION AT THE L4-S1 LEVEL.GOOD ALIGNMENT OF SPINE. NO FRACTURE.Interpreted by:NATALIA Bravoigned by:Nicky Snow MD04/12/18Final result Normal [facility] Basic Metabolic Panel Reflex Mgon 04-11-2018 Anion gap 14 mmol/L Critically high 7-13 [facility] Calcium 9.5 mg/dL Normal 8.6-10.2 [facility] Chloride 100 mmol/L Normal 98-107 [facility] CO2 25 mmol/L Normal 22-29 [facility] Creatinine 0.85 mg/dL Normal 0.70-1.20 [facility] eGFR (black) mL/min/{1.73_m2} Normal >60 [facility] Comment on above: Result Comment: >60 mL/min/1.73m2 EGFR, calc. for ages 18 and older using theMDRD formula (not corrected for weight), is valid for stablerenal function. eGFR (MDRD) mL/min/{1.73_m2} Normal >60 [facility] Comment on above: Result Comment: >60 mL/min/1.73m2 EGFR, calc. for ages 18 and older using theMDRD formula (not corrected for weight), is valid for stablerenal function. Glucose mass conc 154 mg/dL Critically high 74-109 [facility] Potassium molar conc 3.9 mmol/L Normal 3.5-5.1 [facility] Sodium 139 mmol/L Normal 132-144 [facility] Urea nitrogen 15 mg/dL Normal 8-23 [facility] CBC With Platelet No Differe ntialon 04-11-2018 Erythrocyte distribution width Auto Ratio (RBC) 13.8 % Normal 11.5-14.5 [facility] Erythrocytes (RBC) 5.00 10*6/uL Normal 4.70-6.10 [facility] Hematocrit (HCT) 46.0 % Normal 42.0-52.0 [facility] Hemoglobin mass conc (Bld) 15.4 g/dL Normal 14.0-18.0 [facility] MCH 30.7 pg Normal 27.0-31.3 [facility] MCHC mass conc (RBC) 33.4 % Normal 33.0-37.0 [facility] MCV 92.0 fL Normal 80.0-100.0 [facility] Platelets 192 10*3/uL Normal 130-400 [facility] WBC (Leukocytes) 10.0 10*3/uL Normal 4.8-10.8 [facility] FLUORO FOR SURGICAL PROCEDUR ESon 04-11-2018 FLUORO FOR SURGICAL PROCEDURES FLUORO FOR SURGICAL PROCEDURES : 04/11/2018CLINICAL HISTORY: Lumbar Fusion .COMPARISON: Preoperative spine radiographs 04/10/2018.Intraoperative fluoroscopy was provided for Dr. Ordoñez's L4-L5-S1 pedicle screws/posterior lumbar fusion L5-S1 PLIF procedures.A total of 77.6 mGy of fluoroscopy was used, with 331 fluoroscopic stills and reconstructed images saved. No diagnostic images were obtained.Please see Dr. Ordoñez's surgical notes for completeness.Interprete d by:NATALIA Gomesigned by:Kirk Velez MD04/11/18inal result Normal [facility] Surgical Specimenon 04-11-20 Surgical Specimen Invalid Interpretation Code [facility] Comment on above: Result Comment: [place] [address] [facility] SURGICAL PATHOLOGY REPORTPatient Name: RIDGE ROLAND Accession No: [id number] Age Sex: 1945 Location: [place] [id number] No: [id number] Collected: 04/11/2018Med Rec No: [id number] Received: 04/12/2018Attend Phys: ANNMARIE SMITA Completed: 04/16/2018Perform Phys: ANNMARIE YOOFINAL DIAGNOSIS:A. DISK-VERTEBRAL DISK MATERIAL WITH DEGENERATIVE CHANGES.B. SYNOVIAL CYST-CONSISTENT WITH SYNOVIAL CYST. ALIFA/ALIFACLINICAL INFORMATION:L4-5 spondylosis, L5-S1 HNP/radiculopathy, synovial cyst.SPECIMEN:A. DiscB. Synovical CystGROSS DESCRIPTION:A. The specimen container is labeled with the patient's name anddesignated spine . In formalin are multiple irregular shaggy fragmentsof mcbride-pink, rubbery and firm tissue, measuring in aggregate 4 x 3.5 x 1cm. Wrapped and submitted entirely in three cassettes after briefdecalcification.B. The specimen container is labeled with the patient's name anddesignated spine . In formalin are two irregular fragments of mcbride-gauthier,rubbery to firm tissue, measuring in aggregate 1.8 x 1.5 x 0.5 cm.Sectioned and submitted entirely, one cassette. ALDWA/SCDANCPT: [id number] RIVERS M.D. 04/16/2018 Electronically signed out by Page 1 of 1 Basic Metabolic Panelon - Anion gap 15 mmol/L Critically high 7-13 [facility] Calcium 9.4 mg/dL Normal 8.6-10.2 [facility] Chloride 98 mmol/L Normal 98-107 [facility] CO2 28 mmol/L Normal 22-29 [facility] Creatinine 0.70 mg/dL Normal 0.70-1.20 [facility] eGFR (black) mL/min/{1.73_m2} Normal >60 [facility] Comment on above: Result Comment: >60 mL/min/1.73m2 EGFR, calc. for ages 18 and older using theMDRD formula (not corrected for weight), is valid for stablerenal function. eGFR (MDRD) mL/min/{1.73_m2} Normal >60 [facility] Comment on above: Result Comment: >60 mL/min/1.73m2 EGFR, calc. for ages 18 and older using theMDRD formula (not corrected for weight), is valid for stablerenal function. Glucose mass conc 105 mg/dL Normal 74-109 [facility] Potassium molar conc 3.7 mmol/L Normal 3.5-5.1 [facility] Sodium 141 mmol/L Normal 132-144 [facility] Urea nitrogen 14 mg/dL Normal 8-23 [facility] CBC With Platelet No Differe ntialon 04-10-2018 Erythrocyte distribution width Auto Ratio (RBC) 14.2 % Normal 11.5-14.5 [facility] Erythrocytes (RBC) 5.34 10*6/uL Normal 4.70-6.10 [facility] Hematocrit (HCT) 49.2 % Normal 42.0-52.0 [facility] Hemoglobin mass conc (Bld) 16.5 g/dL Normal 14.0-18.0 [facility] MCH 30.9 pg Normal 27.0-31.3 [facility] MCHC mass conc (RBC) 33.6 % Normal 33.0-37.0 [facility] MCV 92.1 fL Normal 80.0-100.0 [facility] Platelets 206 10*3/uL Normal 130-400 [facility] WBC (Leukocytes) 6.8 10*3/uL Normal 4.8-10.8 [facility] Culture, MRSA Screenon 04-10 Culture, MRSA Screen ORDERED BY: DANIELLA EUCEDA: Nares Nose COLLECTED: 04/10/18 12:58ANTIBIOTICS AT JULI.: RECEIVED : 04/10/18 12:58Culture, MRSA Screen FINAL 04/11/18 11:22 No MRSA isolated Normal [facility] Prothrombin Timeon 8 INR Coag RelTime (PPP) 1.0 {INR} Normal [facility] Comment on above: Result Comment: Anastacio mmended INR therapeutic ranges for oral anticoagulanttherapyProphylaxis/treatment of: INR Venous Thrombosis, Pulmonary Embolism 2.0-3Prevention of Systemic Embolism from: Atrial Fibrillation 2.0-3.0 Myocardial Infarction 2.0-3.0 Mechanical Prosthetics Heart Valves 2.5-3.5 Recurrent Systemic Embolism 2.5-3.5Guidelines for patients with coagulopathy, e.g. liver disease:Use the Protime resulted in seconds. Mild 12.9-17.0 sec Moderate 17.1-22.6 sec Severe G.T. 22.6 sec Prothrombin time (PT) Coag time (PPP) 10.7 s Normal 9.6-12.3 [facility] Type and Screen Capture 3 sc rn cellon 04-10-2018 Bilirubin (total) PATIENT: ASUNCION Coleman LOC: [place] BILL# : [id number] : 1945 SEX: MORDERED BY: KINSEY Underwood ORDERED : 04/10/2018 11:35 COLLECTED: 04/10/2018 13:00ORDER : [id number] RECEIVED : 04/10/2018 13:00 TEST NAME RESULT UNITS RANGES ABN FL STABORH Capture A POS FAntibody 3 Cell Scrn Captu NEG F --------- Normal [facility] Urinalysis, reflex to cultur aj 04-10-2018 Bilirubin Ql (U) Negative Normal Negative [facility] Urine Reflexed to Culture Not Indicated Normal [facility] Urine, clarity Clear Normal Clear [facility] Urine, color Yellow Normal Straw/[place] [facility] Urine, glucose presence Negative Normal Negative [facility] Urine, hemoglobin presence Negative Normal Negative [facility] Urine, ketones presence Negative Normal Negative [facility] Urine, leukocyte esterase presence Negative Normal Negative [facility] Urine, nitrite presence Negative Normal Negative [facility] Urine, pH 5.5 [pH] Normal 5.0-9.0 [facility] Urine, protein presence Negative Normal Negative [facility] Urine, specific gravity 1.009 Normal 1.005-1.03 [facility] Urine, urobilinogen 0.2 {Kathia'U}/dL Normal < 2.0 [facility] XR SPINE ENTIRE (2-3 VIEWS)o n 04-10-2018 XR SPINE ENTIRE (2-3 VIEWS) EXAMINATION: XR SPINE ENTIRE (8 views)CLINICAL HISTORY: SCOLIOSIS SURVEYCOMPARISONS: None available.FINDINGS: On AP imaging, Jae angle was measured from the superior endplate at T9, to the inferior endplate of L3. A minimal scoliosis with convexity to the left is visualized with the apex at approximately T12, measuring 5.3 degrees.On lateral imaging, kyphosis is measured from the inferior endplate of T3 to the inferior endplate of T12, measuring 43 degrees.On lateral imaging, lumbar lordosis is measured from the superior endplate of L1, to the superior endplate of L5, measuring 40 degrees.IMPRESSION: NO SIGNIFICANT SCOLIOSIS, KYPHOSIS, OR LORDOSIS IDENTIFIED. Interpreted by:NATALIA Oliverigned by:Devang Scott [id number] result Normal [facility] Vital Signs Date Time Vital Sign Value Performing Clinician Facility 12-14-2023 09:54-0500 Blood Pressure Location Homero X[facility] 12-14-2023 09:54-0500 Diastolic blood pressure 81 mm[Hg] Homero XAV[facility] 12-14-2023 09:54-0500 Heart rate 81 /min Homero [facility] 12-14-2023 09:54-0500 Respiratory rate 16 /min Homero [facility] 12-14-2023 09:54-0500 Systolic blood pressure 137 mm[Hg] Homero [facility] 12-10-2023 12:26-0500 Diastolic blood pressure 86 mm[Hg] Stephenie Barrios [facility] 12-10-2023 12:26-0500 Heart rate 60 /min Stephenie Barrios [facility] 12-10-2023 12:26-0500 Mean blood pressure 105 mm[Hg] Stephenie Barrios [facility] 12-10-2023 12:26-0500 Respiratory rate 20 /min Stephenie Barrios [facility] 12-10-2023 12:26-0500 Systolic blood pressure 144 mm[Hg] Stephenie Barrios [facility] 11-14-2023 10:31-0500 Body height 182.9 cm Marisol Connors MD Work Phone: [facility] 11-14-2023 10:31-0500 Body mass index (BMI) [Ratio] 31.33 kg/m2 Marisol Connors MD Work Phone: [facility] 11-14-2023 10:31-0500 Body weight 104.78 kg Marisol Connors MD Work Phone: [facility] 11-14-2023 10:31-0500 Diastolic blood pressure 64 mm[Hg] Marisol Connors MD Work Phone: [facility] 11-14-2023 10:31-0500 Heart rate 62 /min Marisol Connors MD Work Phone: [facility] 11-14-2023 10:31-0500 Systolic blood pressure 100 mm[Hg] Marisol Connors MD Work Phone: [facility] 11-09-2023 11:14-0500 Diastolic blood pressure 76 mm[Hg] Stephenie [employer] [facility] 11-09-2023 11:14-0500 Heart rate 67 /min [facility] [employer] [facility] 11-09-2023 11:14-0500 Mean blood pressure 95 mm[Hg] Stephenie [employer] [facility] 11-09-2023 11:14-0500 Respiratory rate 14 /min Stephen[facility] [employer] [facility] 11-09-2023 11:14-0500 Systolic blood pressure 132 mm[Hg] Stephenie [employer] [facility] 10-23-2023 09:00-0500 Body height 193.04 cm Devang Ball Other [facility] [employer] Other 10-23-2023 09:00-0500 Body mass index (BMI) [Ratio] 28.31 kg/m2 Devang Ball Other [facility] [employer] Other 10-23-2023 09:00-0500 Body weight 105.51 kg Devang Ball Other [facility] [employer] Other 10-23-2023 09:00-0500 Diastolic blood pressure 83 mm[Hg] Devang Ball Other [facility] [employer] Other 10-23-2023 09:00-0500 Respiratory rate 12 /min Devang Ball Other [facility] [employer] Other 10-23-2023 09:00-0500 Systolic blood pressure 136 mm[Hg] Devang Ball Other [facility] [employer] Other 10-08-2023 08:11-0500 Heart rate 62 /min Bib Fabi [facility] 10-08-2023 08:11-0500 SaO2% (BldA) [Mass fraction] 93 % Bib Fabi [facility] 10-08-2023 08:11-0500 Diastolic blood pressure 98 mm[Hg] Bib Fabi [facility] 10-08-2023 08:11-0500 Mean blood pressure 124 mm[Hg] Bib Fabi [facility] 10-08-2023 08:11-0500 Systolic blood pressure 175 mm[Hg] Bib Fabi [facility] 10-08-2023 08:11-0500 Respiratory rate 16 /min Bib Fabi [facility] 10-08-2023 08:02-0500 Diastolic blood pressure 90 mm[Hg] Bib Fabi [facility] 10-08-2023 08:02-0500 Heart rate 63 /min Bib Fabi [facility] 10-08-2023 08:02-0500 SaO2% (BldA) [Mass fraction] 97 % Bib Fabi [facility] 10-08-2023 08:02-0500 Systolic blood pressure 168 mm[Hg] Bib Fabi [facility] 10-08-2023 07:16-0500 Heart rate 61 /min Bib Fabi [facility] 10-08-2023 07:16-0500 SaO2% (BldA) [Mass fraction] 95 % Bib Sanchez [facility] 10-08-2023 07:16-0500 Body temperature 97.88 [degF] Bib Sanchez [facility] 10-08-2023 07:16-0500 Diastolic blood pressure 91 mm[Hg] Bib Sanchez [facility] 10-08-2023 07:16-0500 Mean blood pressure 115 mm[Hg] Bib Sanchez [facility] 10-08-2023 07:16-0500 Systolic blood pressure 162 mm[Hg] Bib Sanchez [facility] 10-08-2023 07:12-0500 Respiratory rate 15 /min Bib Sanchez [facility] 09-14-2023 07:47-0500 Diastolic blood pressure 75 mm[Hg] Stepheniejakob Barrios [facility] 09-14-2023 07:47-0500 Heart rate 63 /min Stephenie Barrios [facility] 09-14-2023 07:47-0500 Mean blood pressure 91 mm[Hg] Stephenie Barrios [facility] 09-14-2023 07:47-0500 Respiratory rate 16 /min Stephenie Barrios [facility] 09-14-2023 07:47-0500 Systolic blood pressure 124 mm[Hg] Stephenie Barrios [facility] 08-07-2023 13:25-0400 Heart rate 61 /min Bib Fabi [facility] 08-07-2023 13:25-0400 SaO2% (BldA) [Mass fraction] 97 % Bib Fabi [facility] 08-07-2023 13:25-0400 Diastolic blood pressure 90 mm[Hg] Bbi Fabi [facility] 08-07-2023 13:25-0400 Mean blood pressure 119 mm[Hg] Bib Fabi [facility] 08-07-2023 13:25-0400 Systolic blood pressure 176 mm[Hg] Bib Fabi [facility] 08-07-2023 13:19-0400 Diastolic blood pressure 83 mm[Hg] Bib Fabi [facility] 08-07-2023 13:19-0400 Heart rate 65 /min Bib Fabi [facility] 08-07-2023 13:19-0400 SaO2% (BldA) [Mass fraction] 95 % Bib Fabi [facility] 08-07-2023 13:19-0400 Systolic blood pressure 153 mm[Hg] Bib Fabi [facility] 08-07-2023 12:34-0400 Heart rate 62 /min Bib Fabi [facility] 08-07-2023 12:34-0400 SaO2% (BldA) [Mass fraction] 95 % Bib Fabi [facility] 08-07-2023 12:34-0400 Body temperature 97.7 [degF] Bib Fabi [facility] 08-07-2023 12:34-0400 Diastolic blood pressure 73 mm[Hg] Bib Fabi [facility] 08-07-2023 12:34-0400 Mean blood pressure 101 mm[Hg] Bib Fabi [facility] 08-07-2023 12:34-0400 Systolic blood pressure 157 mm[Hg] Bib Fabi [facility] 08-07-2023 12:33-0400 Respiratory rate 14 /min Bib Fabi [facility] 05-11-2023 09:40-0400 Diastolic blood pressure 77 mm[Hg] Stephenie Barrios [facility] 05-11-2023 09:40-0400 Heart rate 68 /min Stephenie Barrios [facility] 05-11-2023 09:40-0400 Mean blood pressure 95 mm[Hg] Stephenie Barrios [facility] 05-11-2023 09:40-0400 Respiratory rate 14 /min Stephenie Barrios [facility] 05-11-2023 09:40-0400 Systolic blood pressure 130 mm[Hg] Stepheniejakob Barrios [facility] 05-01-2023 14:39-0400 Heart rate 61 /min Bibrubi Sanchez [facility] 05-01-2023 14:39-0400 SaO2% (BldA) [Mass fraction] 96 % Bib Fabi [facility] 05-01-2023 14:39-0400 Diastolic blood pressure 80 mm[Hg] Bib Fabi [facility] 05-01-2023 14:39-0400 Mean blood pressure 107 mm[Hg] Bib Fabi [facility] 05-01-2023 14:39-0400 Systolic blood pressure 160 mm[Hg] Bib Fabi [facility] 05-01-2023 14:39-0400 Respiratory rate 14 /min Bib Fabi [facility] 05-01-2023 14:34-0400 Diastolic blood pressure 75 mm[Hg] Bib Fabi [facility] 05-01-2023 14:34-0400 Heart rate 63 /min Bib Fabi [facility] 05-01-2023 14:34-0400 Respiratory rate 14 /min Bib Fabi [facility] 05-01-2023 14:34-0400 SaO2% (BldA) [Mass fraction] 98 % Bib Fabi [facility] 05-01-2023 14:34-0400 Systolic blood pressure 149 mm[Hg] Bib Fabi [facility] 05-01-2023 14:04-0400 Heart rate 60 /min Bib Fabi [facility] 05-01-2023 14:04-0400 SaO2% (BldA) [Mass fraction] 94 % Bib Fabi [facility] 05-01-2023 14:04-0400 Diastolic blood pressure 78 mm[Hg] Bib Fabi [facility] 05-01-2023 14:04-0400 Mean blood pressure 103 mm[Hg] Bib Fabi [facility] 05-01-2023 14:04-0400 Systolic blood pressure 152 mm[Hg] Bib Fabi [facility] 05-01-2023 14:04-0400 Body temperature 97.34 [degF] Bib Sanchez [facility] 05-01-2023 14:04-0400 Respiratory rate 14 /min Bib Sanchez [facility] 04-30-2023 09:00-0400 Body height 193.04 cm Devang Ball Other [facility] [employer] Other 04-30-2023 09:00-0400 Body mass index (BMI) [Ratio] 28.36 kg/m2 Devang Ball Other [employer] [facility] [employer] Other 04-30-2023 09:00-0400 Body weight 105.69 kg Devang Ball Other [employer] Other 04-30-2023 09:00-0400 Diastolic blood pressure 83 mm[Hg] Devang Ball Other [facility] [employer] Other 04-30-2023 09:00-0400 Respiratory rate 12 /min Devang Ball Other [employer] Other 04-30-2023 09:00-0400 Systolic blood pressure 135 mm[Hg] Devang Ball Other [employer] Other 03-19-2023 08:45-0400 Diastolic blood pressure 89 mm[Hg] [employer] [facility] 03-19-2023 08:45-0400 Heart rate 67 /min Stephenie [employer] [facility] 03-19-2023 08:45-0400 Mean blood pressure 106 mm[Hg] Stephenie [employer] [facility] 03-19-2023 08:45-0400 Respiratory rate 20 /min StephenieGumroad [facility] 03-19-2023 08:45-0400 Systolic blood pressure 140 mm[Hg] Stephenie Barrios [facility] 03-12-2023 09:15-0400 Heart rate 65 /min Bib Fabi [facility] 03-12-2023 09:15-0400 SaO2% (BldA) [Mass fraction] 96 % Bib Fabi [facility] 03-12-2023 09:15-0400 Diastolic blood pressure 92 mm[Hg] Bib Fabi [facility] 03-12-2023 09:15-0400 Mean blood pressure 114 mm[Hg] Bib Fabi [facility] 03-12-2023 09:15-0400 Systolic blood pressure 159 mm[Hg] Bib Fabi [facility] 03-12-2023 09:15-0400 Respiratory rate 16 /min Bib Fabi [facility] 03-12-2023 09:11-0400 Diastolic blood pressure 67 mm[Hg] Bib Fabi [facility] 03-12-2023 09:11-0400 Heart rate 70 /min Bib Fabi [facility] 03-12-2023 09:11-0400 Respiratory rate 14 /min Bib Faib [facility] 03-12-2023 09:11-0400 SaO2% (BldA) [Mass fraction] 94 % Bib Fabi [facility] 03-12-2023 09:11-0400 Systolic blood pressure 160 mm[Hg] Bib Fabi [facility] 03-12-2023 08:09-0400 Heart rate 71 /min Bib Sanchez [facility] 03-12-2023 08:09-0400 SaO2% (BldA) [Mass fraction] 95 % Bib Sanchez [facility] 03-12-2023 08:09-0400 Diastolic blood pressure 69 mm[Hg] Bib Sanchez [facility] 03-12-2023 08:09-0400 Mean blood pressure 102 mm[Hg] Bib Sanchez [facility] 03-12-2023 08:09-0400 Systolic blood pressure 168 mm[Hg] Bib Sanchez [facility] 03-12-2023 08:09-0400 Body temperature 97.52 [degF] Bib Sanchez [facility] 03-12-2023 08:09-0400 Respiratory rate 12 /min Bib Sanchez [facility] 03-08-2023 09:32-0400 Body height 193.04 cm Devang Bustillo [employer] Work Phone: [facility] [employer] DO Work Phone: 03-08-2023 09:32-0400 Body mass index (BMI) [Ratio] 29.21 kg/m2 Devang Bustillo [employer] Work Phone: [facility] [employer] 250 DO Work Phone: 03-08-2023 09:32-0400 Body surface area Derived from formula 2.39 m2 Devang Bustillo Ball Work Phone: [facility] [employer] 250 DO Work Phone: 03-08-2023 09:32-0400 Body weight 108.86 kg Devang Bustillo Ball Work Phone: [facility] [employer] 250 DO Work Phone: 03-08-2023 09:32-0400 Diastolic blood pressure 84 mm[Hg] Devang Bustillo Ball Work Phone: [facility] [employer] 250 DO Work Phone: 03-08-2023 09:32-0400 Heart rate 68 /min Devang E Ball Work Phone: [facility] [employer] 250 DO Work Phone: 03-08-2023 09:32-0400 Systolic blood pressure 132 mm[Hg] Devang Bustillo Ball Work Phone: [facility] [employer] 250 DO Work Phone: 02-21-2023 14:00-0400 Body height 193.04 cm Allison Blades Other [employer] Other 02-21-2023 14:00-0400 Body mass index (BMI) [Ratio] 30.43 kg/m2 Allison Blades Other [employer] Other 02-21-2023 14:00-0400 Body weight 113.4 kg Allison Blades Other [employer] Other 02-21-2023 14:00-0400 Diastolic blood pressure 66 mm[Hg] Allison Blades Other [employer] Other 02-21-2023 14:00-0400 Systolic blood pressure 110 mm[Hg] Allison Blades Other [employer] Other 01-01-2023 10:00-0500 Body height 190.5 cm LUDWIN LEMON Other [facility] Other 01-01-2023 10:00-0500 Body mass index (BMI) [Ratio] 30.62 kg/m2 LUDWIN VÁSQUEZCETIC Other [facility] [employer] Other 01-01-2023 10:00-0500 Body weight 111.13 kg LUDWIN VÁSQUEZCETIC Other [facility] [employer] Other 01-01-2023 10:00-0500 Diastolic blood pressure 66 mm[Hg] LUDWIN VÁSQUEZCETIC Other [facility] [employer] Other 01-01-2023 10:00-0500 Respiratory rate 16 /min LUDWIN VÁSQUEZCETIC Other [facility] [employer] Other 01-01-2023 10:00-0500 Systolic blood pressure 118 mm[Hg] LUDWIN VÁSQUEZCETIC Other [facility] [employer] Other 11-29-2022 10:30-0500 Body height 193.04 cm Allison Blades Other [employer] Other 11-29-2022 10:30-0500 Body mass index (BMI) [Ratio] 29.84 kg/m2 Allison Blades Other [employer] Other 11-29-2022 10:30-0500 Body weight 111.22 kg Allison Blades Other [employer] Other 11-29-2022 10:30-0500 Diastolic blood pressure 84 mm[Hg] Allison Blades Other [employer] Other 11-29-2022 10:30-0500 Systolic blood pressure 138 mm[Hg] Allison Blades Other [employer] Other 11-28-2022 09:00-0500 Blood Pressure Location ALANIS LAYTON [facility] 11-28-2022 09:00-0500 Diastolic blood pressure 84 mm[Hg] ALANIS NINA [facility] 11-28-2022 09:00-0500 Heart rate 68 /min ALANIS NINA [facility] 11-28-2022 09:00-0500 Respiratory rate 16 /min ALANIS NINA [facility] 11-28-2022 09:00-0500 Systolic blood pressure 121 mm[Hg] ALANIS VERDUGORY [facility] 09-26-2022 09:33-0500 Body height 193.04 cm Devang Bustillo Ball Work Phone: [place]-Qyuvulbfbt-Lpvhfo [place] 250 DO Work Phone: 09-26-2022 09:33-0500 Body mass index (BMI) [Ratio] 29.7 kg/m2 Devang Bustillo [employer] Work Phone: [place]-Hxiobhqfzt-Jtxbgv [place] 250 DO Work Phone: 09-26-2022 09:33-0500 Body surface area Derived from formula 2.41 m2 Devang Bustillo Ball Work Phone: NL-Dmauenmlqx-Pxxdgd [place] 250 DO Work Phone: 09-26-2022 09:33-0500 Body weight 110.68 kg Devang Bustillo Ball Work Phone: TS-Lrlysbxpml-Rncmnm [place] 250 DO Work Phone: 09-26-2022 09:33-0500 Diastolic blood pressure 78 mm[Hg] Devang Bustillo Ball Work Phone: VZ-Teplpbxtup-Untmse [place] 250 DO Work Phone: 09-26-2022 09:33-0500 Heart rate 76 /min Devang E Ball Work Phone: NF-Nhjtqdhkrx-[place] 250 DO Work Phone: 09-26-2022 09:33-0500 Systolic blood pressure 120 mm[Hg] Devang E Ball Work Phone: XN-Innswxkoir-Qwiskz [place] 250 DO Work Phone: 03-28-2022 13:43-0400 Body height 193.04 cm Devang E Ball Work Phone: [facility] 250 DO Work Phone: 03-28-2022 13:43-0400 Body mass index (BMI) [Ratio] 28.48 kg/m2 Devang E Ball Work Phone: [facility] 250 DO Work Phone: 03-28-2022 13:43-0400 Body surface area Derived from formula 2.37 m2 Devang E Ball Work Phone: [facility] 250 DO Work Phone: 03-28-2022 13:43-0400 Body weight 106.14 kg Devang E Ball Work Phone: [facility] 250 DO Work Phone: 03-28-2022 13:43-0400 Diastolic blood pressure 60 mm[Hg] Devang E Ball Work Phone: [facility] 250 DO Work Phone: 03-28-2022 13:43-0400 Heart rate 88 /min Devang E Ball Work Phone: [facility] 250 DO Work Phone: 03-28-2022 13:43-0400 Systolic blood pressure 100 mm[Hg] Devang E Ball Work Phone: [facility] 250 DO Work Phone: Encounters Encounter Date Encounter Type Care Provider Facility Start: 12-14-2023 End: 12-15-2023 ambulatory Homero R DUC Facility:[facility] Start: 12-14-2023 End: 12-14-2023 Patient encounter procedure Homero Marie DUC [facility] Start: 12-11-2023 End: 12-12-2023 ambulatory ALANISCOREY LAYTON Facility:[facility] Start: 12-10-2023 End: 12-11-2023 ambulatory Stephenie Barrios [place] [place]: 12-10-2023 End: 12-10-2023 Pain Management Stephenie Barrios [facility] Start: 11-28-2023 End: 11-28-2023 ambulatory Devang Hall Other [employer] Other Start: 11-28-2023 Telephone encounter Devang Hall [facility] Start: 11-14-2023 End: 11-14-2023 ambulatory MARISOL Gao [facility] Start: 11-14-2023 End: 11-14-2023 Office outpatient visit 25 minutes Marisol Connors MD Work Phone: [facility] Comment on above: Arteriosclerosis of coronary artery (Primary Dx); Status post coronary angioplasty; Dyslipidemia; Essential hypertension; Obesity (BMI 30.0-34.9); At risk for falls Start: 11-09-2023 End: 11-10-2023 ambulatory Stephenie Barrios [place] Start: 11-09-2023 End: 11-09-2023 Pain Management Stephenie Barrios [facility] Start: 10-23-2023 End: 10-23-2023 ambulatory Devang Hall Other [employer] Other Start: 10-23-2023 Office outpatient vi sit 25 minutes Devang Hall [facility] Start: 10-08-2023 End: 10-09-2023 ambulatory Bibrubi Sanchez [place] Start: 10-08-2023 End: 10-08-2023 Pain Management Bibrubi Sanchez [facility] Start: 09-14-2023 End: 09-15-2023 ambulatory Stephenie Barrios [place] Start: 09-14-2023 End: 09-14-2023 Pain Management Stephenie Barrios [facility] Start: 09-04-2023 End: 09-05-2023 ambulatory Bibrubi Sanchez [place] Start: 08-28-2023 End: 08-29-2023 ambulatory DEVANG HALL [place] Start: 08-07-2023 End: 08-08-2023 ambulatory Bibrubi Sanchez [place] Start: 08-07-2023 End: 08-07-2023 Pain Management Bib Sanchez [facility] Start: 06-18-2023 End: 06-19-2023 ambulatory DEVANG HALL [place] Start: 05-29-2023 End: 05-30-2023 ambulatory DEVANG HALL [place] Start: 05-11-2023 End: 05-12-2023 ambulatory Stephenie Barrios [place] Start: 05-11-2023 End: 05-11-2023 Pain Management Stephenie Barrios [facility] Start: 05-03-2023 End: 05-03-2023 ambulatory Devang Hall Other [employer] [facility] [employer] Other Start: 05-03-2023 Telephone encounter Devang Hall [facility] Start: 05-01-2023 End: 05-02-2023 ambulatory Bibrubi Sancehz [facility] [employer] Other Start: 05-01-2023 Telephone encounter Devang COLE [facility] Start: 05-01-2023 End: 05-01-2023 Pain Management Bib Sanchez [facility] Start: 04-30-2023 End: 04-30-2023 ambulatory Devang Hall Other [facility] [employer] Other Start: 04-30-2023 Patient encounter procedure Devang Hall [facility] Start: 03-19-2023 End: 03-20-2023 ambulatory Stephenie Barrios [place] Start: 03-19-2023 End: 03-19-2023 Pain Management Stephenie Barrios [facility] Start: 03-14-2023 End: 03-15-[address] MARISOL CONNORS Facility: Start: 03-12-2023 End: 03-13-[address] MARISOL CONNORS Facility: Start: 03-12-2023 End: 03-13-2023 ambulatory Bib Sanchez [place] Start: 03-12-2023 End: 03-12-2023 Pain Management Bib Sanchez [facility] Start: 03-08-2023 FUV, Provider: Marisol Connors, Status: Pen, Time: 9:50 AM [facility]ang [facility] Work Phone: Start: 03-08-2023 Office outpatient vi sit 25 minutes Devang Hall [facility] Work Phone: Start: 03-08-2023 ambulatory Marisol Connors Facility : Start: 03-06-2023 Rx Renewal Devang Gonzalez l Work Phone: [facility] [facility] 250 DO Work Phone: Start: 02-21-2023 End: 02-21-2023 ambulatory Allison Blades Other [employer] Other Start: 02-21-2023 Office outpatient vi sit 15 minutes Allison Blades [facility] [place] Start: 01-10-2023 End: 01-11-2023 ambulatory ALANIS LAYTON Facility: [facility] Start: 01-10-2023 End: 03-02-[address] DOCTOR PLUMMER Facility:[facility] Start: 01-01-2023 End: 01-01-2023 ambulatory LUDWIN LEMON Other [facility] Other Start: 01-01-2023 Office outpatient ne w 45 minutes LUDWIN VÁSQUEZADAMGRAYSON [facility] Start: 11-29-2022 End: 11-29-2022 ambulatory Allison Blades Other [employer] Other Start: 11-29-2022 Office outpatient ne w 45 minutes Allison Blades [facility] [place] Start: 11-29-2022 Telephone encounter Allison Kenyon [employer] Start: 11-28-2022 End: 11-28-2022 Patient encounter procedure ALANIS LAYTON [facility] Start: 11-15-2022 End: 11-15-2022 ambulatory Devang Hall Other [employer] Other Start: 11-15-2022 Telephone encounter Devang Hall [facility] Start: 11-14-2022 End: 11-15-[address] DEVANG HALL Facility:[facility] Start: 10-11-2022 Rx Renewal Devang collins Work Phone: [facility] 250 DO Work Phone: Start: 09-26-2022 Office outpatient vi sit 25 minutes Devang Hall Work Phone: [facility] 250 DO Work Phone: Start: 09-26-2022 ambulatory Marisol Connors Facility : Start: 05-30-2022 End: 05-30-2022 Patient encounter procedure Goldy Alberto Jr. [facility] Start: 05-11-2022 End: 05-11-2022 Patient encounter procedure Goldy Alberto Jr. [facility] Start: 05-09-2022 End: 05-09-2022 Patient encounter procedure Goldy Alberto Jr. [facility] Start: 04-25-2022 End: 04-25-2022 Emergency department patient visit Dr. Devang Hall Facility:[facility] Start: 04-07-2022 End: 04-08-[address] MARISOL CONNORS Facility: Start: 03-28-2022 Office outpatient vi sit 25 minutes Devang Hall Work Phone: [facility] 250 DO Work Phone: Start: 03-28-2022 ambulatory Marisol Connors Facility : Start: 03-06-2022 Rx Renewal Marisol Connors MD Work Phone: [facility] 250 DO Work Phone: Start: 09-26-2021 Rx Renewal Marisol Connors MD Work Phone: [facility] 250 DO Work Phone: Start: 09-22-2021 Rx Renewal Marisol Connors MD Work Phone: [facility] 250 DO Work Phone: Start: 04-11-2018 End: 04-13-2018 Evaluation and management of inpatient DEVANG HALL [facility] Start: 04-10-2018 [facility] Start: 04-10-2018 End: 04-15-2018 Amb[facility] Procedures Date Procedure Procedure Detail Performing Clinician Start: 10-08-2023 Radiofrequency ablat ion of nerve root of lumbar spine using fluoroscopic guidance [employer] Comment on above: Bilateral L3/4+L4/5- no relief Start: 09-04-2023 Injection of facet j oint using fluoroscopic guidance [employer] Comment on above: Bilateral L3/4, L4/5 MBB-80% relief for 1 day Start: 08-07-2023 Injection of facet j oint using fluoroscopic guidance [employer] Comment on above: BL L3/L4 L4/L5 MBB 8 5% Relief x 4 hours Start: 05-29-2023 Local anesthetic sac ral epidural block Bib Sanchez Comment on above: Caudal john 50% relie f Start: 05-01-2023 Injection of facet j oint using fluoroscopic guidance [employer] Comment on above: bilateral 75% relief for 2 hours Start: 03-12-2023 Injection of facet j oint using fluoroscopic guidance [employer] Comment on above: pt changed amt of re lief to 80% x 4 hr. bilat L3/4 MBB- 50% relief x 4 hr Start: 05-11-2022 Injection of therape utic substance into bladder wall ALANIS LAYTON Start: 02-07-2021 Blepharoplasty Goldy shelley Jr. Start: 12-02-2020 Cystourethroscopy wi th dilation of urethral stricture Goldy Alberto Jr. Start: 11-02-2020 Cataract extraction and insertion of intraocular lens Goldy Alberto Jr. Start: 04-28-2020 Transurethral prostatectomy Goldyjorje Alberto Jr. Start: 12-08-2019 Cystourethroscopy wi th dilation of urethral stricture Goldyjorje Alberto Jr. 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 3 Start: 10-16-2019 back surgery 7 Stepheniejakob levin Comment on above: 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 3 Start: 10-16-2019 back surgery 8 Stepheniejakob levin Comment on above: 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 3 Start: 06-16-2019 Placement of stent i n cardiac conduit Goldy Remy Bernal Start: 04-13-2018 INCENTIVE SPIROMETRY RT ANNMARIE SMITA Start: 04-13-2018 END TIDAL CO2 CONTINUOUS ANNMARIE SMITA Start: 04-13-2018 INCENTIVE SPIROMETRY RT ANNMARIE SMITA Start: 04-13-2018 INITIATE OXYGEN THER APY PROTOCOL ANNMARIE SMITA Start: 04-13-2018 PULSE OXIMETRY, CONTINUOUS ANNMARIE SMITA Start: 04-13-2018 DISCHARGE PATIENT ANNMARIE YO O Start: 04-13-2018 INCENTIVE SPIROMETRY RT ANNMARIE SMITA Start: 04-13-2018 END TIDAL CO2 CONTINUOUS ANNMARIE SMITA Start: 04-13-2018 PULSE OXIMETRY, CONTINUOUS ANNMARIE SMITA Start: 04-13-2018 INTAKE AND OUTPUT ANNMARIE YO O Start: 04-13-2018 END TIDAL CO2 CONTINUOUS ANNMARIE SMITA Start: 04-13-2018 PULSE OXIMETRY, CONTINUOUS ANNMARIE SMITA Start: 04-13-2018 INCENTIVE SPIROMETRY RT ANNMARIE SMITA Start: 04-12-2018 END TIDAL CO2 CONTINUOUS ANNMARIE SMITA Start: 04-12-2018 PULSE OXIMETRY, CONTINUOUS ANNMARIE SMITA Start: 04-12-2018 INCENTIVE SPIROMETRY RT ANNMARIE SMITA Start: 04-12-2018 INCENTIVE SPIROMETRY RT ANNMARIE SMITA Start: 04-12-2018 END TIDAL CO2 CONTINUOUS ANNMARIE SMITA Start: 04-12-2018 INCENTIVE SPIROMETRY RT ANNMARIE SMITA Start: 04-12-2018 PULSE OXIMETRY, CONTINUOUS ANNMARIE SMITA Start: 04-12-2018 INCENTIVE SPIROMETRY RT ANNMARIE SMITA Start: 04-12-2018 Radex spine lumbosac ral 2/3 views ANNMARIE SMITA Start: 04-12-2018 END TIDAL CO2 CONTINUOUS ANNMARIE SMITA Start: 04-12-2018 INCENTIVE SPIROMETRY RT ANNMARIE SMITA Start: 04-12-2018 PULSE OXIMETRY, CONTINUOUS ANNMARIE SMITA Start: 04-12-2018 INCENTIVE SPIROMETRY RT ANNMARIE SMITA Start: 04-12-2018 END TIDAL CO2 CONTINUOUS ANNMARIE SMITA Start: 04-12-2018 INCENTIVE SPIROMETRY RT ANNMARIE SMITA Start: 04-12-2018 INITIATE OXYGEN THER APY PROTOCOL ANNMARIE SMITA Start: 04-12-2018 PULSE OXIMETRY, CONTINUOUS ANNMARIE SMITA Start: 04-12-2018 DME ORDER FOR WALKER OP ANNMARIE SMITA Start: 04-12-2018 INCENTIVE SPIROMETRY RT ANNMARIE SMITA Start: 04-12-2018 Blood count complete auto&auto difrntl wbc ANNMARIE SMITA Start: 04-12-2018 END TIDAL CO2 CONTINUOUS ANNMARIE SMITA Start: 04-12-2018 PULSE OXIMETRY, CONTINUOUS ANNMARIE SMITA Start: 04-12-2018 BASIC METABOLIC PANE L W/ REFLEX TO MG FOR LOW K ANNMARIE SMITA Start: 04-12-2018 CATHETER REMOVAL ANNMARIE SMITA Start: 04-12-2018 DAILY WEIGHTS ANNMARIE SMITA Start: 04-12-2018 INTAKE AND OUTPUT ANNMARIE YO O Start: 04-12-2018 OT EVAL AND TREAT ANNMARIE YO O Start: 04-12-2018 PT EVAL AND TREAT ANNMARIE YO O Start: 04-12-2018 ACTIVITY TOLERATED B O SMIAT Start: 04-12-2018 AMBULATE PATIENT ANNMARIE SMITA Start: 04-12-2018 END TIDAL CO2 CONTINUOUS ANNMARIE SMITA Start: 04-12-2018 PULSE OXIMETRY, CONTINUOUS ANNMARIE SMITA Start: 04-12-2018 INCENTIVE SPIROMETRY RT ANNMARIE SMITA Start: 04-11-2018 END TIDAL CO2 CONTINUOUS ANNMARIE SMITA Start: 04-11-2018 INCENTIVE SPIROMETRY RT ANNMARIE SMITA Start: 04-11-2018 PULSE OXIMETRY, CONTINUOUS ANNMARIE SMITA Start: 04-11-2018 INCENTIVE SPIROMETRY RT ANNMARIE SMITA Start: 04-11-2018 DIET GENERAL ANNMARIE SMITA Start: 04-11-2018 END TIDAL CO2 CONTINUOUS ANNMARIE SMITA Start: 04-11-2018 INCENTIVE SPIROMETRY RT ANNMARIE SMITA Start: 04-11-2018 PULSE OXIMETRY, CONTINUOUS ANNMARIE SMITA Start: 04-11-2018 END TIDAL CO2 CONTINUOUS ANNMARIE SMITA Start: 04-11-2018 ASSESS ANNMARIE SMITA Start: 04-11-2018 IP CONSULT TO SOCIAL WORK ANNMARIE SMITA Start: 04-11-2018 MAINTAIN IV ACCESS ANNMARIE Y OO Start: 04-11-2018 NURSING COMMUNICATION B O SMITA Start: 04-11-2018 PLACE INTERMITTENT P NEUMATIC COMPRESSION DEVICE ANNMARIE SMITA Start: 04-11-2018 CONTINUE INDWELLING CATHETHER ANNMARIE SMITA Start: 04-11-2018 INCENTIVE SPIROMETRY RT ANNMARIE SMITA Start: 04-11-2018 INITIATE OXYGEN THER APY PROTOCOL ANNMARIE SMITA Start: 04-11-2018 NEURO/VASCULAR CHECKS B O SMITA Start: 04-11-2018 PULSE OXIMETRY, CONTINUOUS ANNMARIE SMITA Start: 04-11-2018 TOBACCO CESSATION EDUCATION ANNMARIE SMITA Start: 04-11-2018 WOUND CARE ANNMARIE SMITA Start: 04-11-2018 ADVANCE DIET TOLE RATED (NURSING COMMUNICATION) ANNMARIE SMITA Start: 04-11-2018 ELEVATE HOB ANNMARIE SMITA Start: 04-11-2018 FULL CODE ANNMARIE SMITA Start: 04-11-2018 INTAKE AND OUTPUT ANNMARIE YO O Start: 04-11-2018 NOTIFY PHYSICIAN (SPECIFY) ANNMARIE SMITA Start: 04-11-2018 VITAL SIGNS ANNMARIE SMITA Start: 04-11-2018 TELEMETRY MONITORING ANNMARIE SMITA Start: 04-11-2018 BASIC METABOLIC PANE L W/ REFLEX TO MG FOR LOW K ANNMARIE SMITA Start: 04-11-2018 Blood count complete automated ANNMARIE SMITA Start: 04-11-2018 PATIENT STATUS (FROM ED OR OR/PROCEDURAL) ANNMARIE SMITA Start: 04-11-2018 TRANSFER PATIENT ANNMARIE SMITA Start: 04-11-2018 FLUORO FOR SURGICAL PROCEDURES ANNMARIE SMITA Start: 04-11-2018 SURGICAL PATHOLOGY ANNMARIE Y OO Start: 04-10-2018 Basic metabolic pane l calcium total ANNMARIE SMITA Start: 04-10-2018 Prothrombin time ANNMARIE SMITA Start: 04-10-2018 TYPE AND SCREEN ANNMARIE SMITA Start: 04-10-2018 Blood count complete automated ANNMARIE SMITA Start: 04-10-2018 URINE RT REFLEX TO CULTURE ANNMARIE SMITA Start: 04-10-2018 Cul prsmptv pthgnc o rganism scrn w/colony estimj ANNMARIE SMITA Start: 04-10-2018 Radex entir thrc lmb r crv sac spi w/skull 2/3 vw ANNMARIE SMITA Start: 04-10-2018 EKG 12-LEAD ANNMARIE SMITA Start: 11-05-2017 inguinal hernia repair Goldy Alberto Jr. Start: 07-12-2016 Transurethral prostatectomy Goldy Alberto Jr. Start: 06-23-2016 Cystoscopy Goldy flanagan Jr. Start: 03-14-2013 Laser ablation of prostate Goldy Alberto Jr. Start: 02-13-2013 Urodynamic studies Cassandra Alberto Jr. Arthroplasty of knee Sinan Hall Work Phone: Arthroscopy of knee Marisol burton MD Work Phone: Arthroscopy of knee Goldy shelley Jr. Back structure, excl uding neck (body structure) Goldy Alberto Jr. Cardiac catheterization Ronny Connors MD Work Phone: Cataract surgery Devang Hall Work Phone: Extraction of cataract Memo Alberto Jr. Hernia repair Marisol Connors MD Work Phone: Procedure on back Marisol muñoz MD Work Phone: Release of trigger finger Do abdullahi Alberto Jr. Tonsillectomy Marisol Connors MD Work Phone: Plan of Treatment Date Care Activity Detail Author Start: 11-08-2030 DTaP/Tdap/Td Vaccine s (2 - Tdap) DTaP/Tdap/Td Vaccines (2 - Tdap) [facility] Start: 05-22-2024 End: 05-22-2024 Patient encounter procedure 05/22/2024 9:50 AM EDT Office Visit [facility] [address] [facility] [address] [place] [id number] Marisol Connors MD [address] [facility] [address], [facility] [address] [place] [address] [facility] Start: 09-18-2023 FUV, Provider: Marisol Connors, Status: Pen, Time: 9:50 AM FUV, Provider: Marisol Connors, Status: Pen, [facility]: 9[facility] Work Phone: Start: 03-08-2023 FUV, Provider: Marisol Connors, Status: Pen, Time: 9:50 AM FUV, Provider: Marisol Connors, Status: Pen, Time: 9:50 AM [facility] 250 DO Work Phone: Start: 10-22-2022 COVID-19 Vaccine (4 - Pfizer series) COVID-19 Vaccine (4 - Pfizer series) [facility] Start: 09-26-2022 FUV, Provider: Marisol Connors, Status: Pen, Time: 9:40 AM FUV, Provider: Marisol Connors, Status: Pen, Time: 9:40 AM [facility] Work Phone: Start: 03-28-2022 FUV, Provider: Marisol Connors, Status: Pen, Time: 1:20 PM FUV, Provider: Marisol Connors, Status: Pen, Time: 1:20 PM [facility] DO Work Phone: Start: 12-15-2021 FUV, Provider: Marisol Connors, Status: Pen, Time: 10:30 AM FUV, Provider: Marisol Connors, Status: Pen, Time: 10:30 AM [facility] 250 DO Work Phone: Start: 1996 Zoster Vaccines (1 o f 2) Zoster Vaccines (1 of 2) [facility] Start: 1964 Hepatitis C screening Hepatitis C Sc reening [facility] Start: 1945 Lipid panel Lipid Panel [facility] Start: 1945 Medicare Annual Wellness Visit Medicare Annual Wellness Visit (AWV) [facility] Immunizations Immunization Date Immunization Notes Care Provider Tali hwang 08-20-2023 influenza virus vaccine, unspecified formulation Homero XAVIER [facility] 08-27-2022 Pfizer COVID-19 Vac Bivalent 30 MCG/0.3ML Intramuscular Suspension Devang Iwona [employer] Work Phone: [facility] 08-14-2022 Fluzone High-Dose Quadrivalent 0.7 ML Intramuscular Suspension Prefilled Syringe Devang Iwona [employer] Work Phone: [facility] 250 DO Work Phone: 08-14-2022 influenza virus vaccine, unspecified formulation ALANIS NINA [facility] 08-14-2022 influenza, high dose seasonal, preservative-free Devang [employer] Other [employer] Other 10-03-2021 Pfizer-BioNTech COVID-19 Vacc 30 MCG/0.3ML Intramuscular Suspension Devang E [employer] Work Phone: [facility] 250 DO Work Phone: 10-03-2021 SARS-CoV-2 (COVID-19 ) Ad26 vaccine, recombinant Goldy Alberto Jr. [facility] 07-01-2021 Fluzone High-Dose Quadrivalent 0.7 ML Intramuscular Suspension Prefilled Syringe Devang Hall Work Phone: [place] [address] DO Work Phone: 07-01-2021 influenza virus vaccine, unspecified formulation ALANIS LAYTON [facility] 06-05-2021 influenza virus vaccine, unspecified formulation Goldy Alberto Jr. [facility] 01-25-2021 Pfizer-BioNTech COVID-19 Vacc 30 MCG/0.3ML Intramuscular Suspension Marisol Connors MD Work Phone: [place] [address] DO Work Phone: 01-25-2021 SARS-CoV-2 (COVID-19 ) Ad26 vaccine, recombinant Goldy Alberto Jr. [facility] 01-03-2021 COVID-19 Vaccine Pfi zer - Documentation Purposes Only Devang Hall Other [facility] [employer] Other 01-03-2021 SARS-CoV-2 (COVID-19 ) mRNA-1273 vaccine Goldy Alberto Jr. [facility] 12-28-2020 Pfizer-BioNTech COVID-19 Vacc 30 MCG/0.3ML Intramuscular Suspension Devang Hall Work Phone: [facility] 11-08-2020 diphtheria, tetanus toxoids and pertussis vaccine Devang Hall Work Phone: [place] [address] DO Work Phone: 07-06-2020 influenza virus vaccine, unspecified formulation Marisol Connors MD Work Phone: [facility] 07-02-2020 influenza virus vaccine, unspecified formulation ALANIS NINA [facility] 08-19-2018 influenza virus vaccine, unspecified formulation ALANIS NINA [facility] 08-19-2018 Seasonal trivalent influenza vaccine, adjuvanted, preservative free Devang Hall Work Phone: [place] [address] DO Work Phone: 07-06-2018 influenza virus vaccine, unspecified formulation Marisol Cononrs MD Work Phone: [place] [address] DO Work Phone: 08-24-2017 pneumococcal conjuga te vaccine, 13 valent Devang Hall Work Phone: [facility] 08-17-2017 influenza virus vaccine, unspecified formulation ALANIS LAYTON [facility] 08-17-2017 influenza, high dose seasonal, preservative-free Devang Hall Work Phone: [place] [address] DO Work Phone: 11-05-2016 pneumococcal polysaccharide vaccine, 23 valent Marisol Connors MD Work Phone: [place] [address] DO Work Phone: 08-11-2016 influenza virus vaccine, unspecified formulation ALANIS NINA [facility] 08-05-2016 influenza virus vaccine, unspecified formulation ALANIS NINA [facility] 08-05-2016 influenza, injectabl e, quadrivalent, preservative free Devang Hall Work Phone: [facility] DO Work Phone: 07-06-2014 pneumococcal polysaccharide vaccine, 23 valent Devang Bustillo Rafael Work Phone: [facility] Payers Date Payer Category Payer Medicare AETNA MEDICARE A ETNA MEDICARE ASSURE [id number] 2021-Present [address] [place] [address] [id number] 2017 Medicare [id number] 1958 Medicare [id number] [id number] 1946 Unknown [id number] 2.16.840.1.500673.3.579.2.356 1946 Unknown [id number] 2.16.840.1.945865.3.579.2.356 1946 Unknown [id number] 2.16.840.1.082374.3.579.2.356 1946 Unknown [id number] 2.16.840.1.780696.3.579.2.356 1946 Unknown [id number] 2.16.840.1.195961.3.579.2.593 1946 Unknown [id number] 2.16.840.1.136051.3.579.2.593 1946 Unknown [id number] 2.16.840.1.394204.3.579.2.593 1946 Unknown [id number] 2.16.840.1.040192.3.579.2.593 1946 Unknown [id number] 2.16.840.1.607771.3.579.2.593 1946 Unknown [id number] 2.16.840.1.618624.3.579.2.1244 1946 Unknown [id number] 2.16.840.1.144065.3.579.2. 1946 Unknown [id number] 2.16.840.1.560656.3.579.2. 1946 Unknown [id number] 2.16.840.1.735098.3.579.2. 1946 Unknown [id number] 2.16.840.1.173320.3.579.2. 1946 Unknown [id number] 2.16.840.1.694951.3.579.2 1946 Unknown [id number] 2.16.840.1.111313.3.579.2 1946 Unknown [id number] 2.16840.1.837635.3.579.2 1946 Unknown [id number] 2.16.840.1.434814.3.579.2 1946 Unknown [id number] 2.16.840.1.115729.3.579.2 1946 Unknown [id number] 2.16.840.1.629168.3.579.2 1946 Unknown [id number] 2.16.840.1.617871.3.579.2 1946 Unknown [id number] 2.16.840.1.213006.3.579.2 1946 Unknown [id number] 2.16.840.1.928178.3.579.2 1946 Unknown [id number] 2.16.840.1.123550.3.579.2. 1946 Unknown [id number] 2.16.840.1.529055.3.579.2 1946 Unknown [id number] 2.16.840.1.434078.3.579.2.727 Self-pay Self Pay [id number] Unknown [employer] Social History Date Type Detail Facility [facility] Start: 1945 Sex Assigned At Male F [facility] Start: 11-14-2023 Social alcohol use Social alcohol us [facility] 250 DO Work Phone: Start: 11-15-2021 End: 12-14-2023 Tobacco smoking status Ex-smoker (finding) [facility] Comment on above: pt quit smoking in 1 984 Start: 11-14-2023 Sex Assigned At Male [facility] Tobacco smoking status Never [facility] Comment on above: pt quit smoking in 984 Start: 01-01-2023 [facility] Other History of tobacco use Current smoker [facility] Work Phone: History of tobacco use Cigarette Smoker [facility] Work Phone: Start: 11-14-2023 Tobacco use and exposure Smokeless tobacco non-user [facility] Work Phone: Start: 11-14-2023 Alcohol intake Ex-drinker (finding) [facility] Work Phone: Start: 1945 Sex Assigned At Not on file [facility] Work Phone: Start: 11-04-2023 End: 11-14-2023 Exposure to SARS-CoV-2 (event) Not sure [facility] Medical Equipment Procedure Code Equipment Code Equipment Origin al Text Equipment Identifier Dates FDA Start: 06-16-2019 CL CLOSURE DEVIC E EXOSEAL [id number] FDA Start: 06-16-2019 CATARACT EXTRACT ION W/ INTRAOCULAR LENS Adolph Schultz DO 11/02/20 Non Biological Eye R {[id number] FDA Start: 11-02-2020 Goals Date Patient Goal Desired Activity /State Functional Status Date Assessment Result Facility 12-14-2023 Functional Status N/A [facility] 12-10-2023 Functional Status N/A [facility] 11-09-2023 Functional Status N/A [facility] 10-08-2023 Functional Status N/A [facility] 09-14-2023 Functional Status N/A [facility] 08-07-2023 Functional Status N/A [facility] 05-11-2023 Functional Status N/A [facility] 05-01-2023 Functional Status N/A [facility] 03-19-2023 Functional Status N/A [facility] 03-12-2023 Functional Status N/A [facility] 11-28-2022 Functional Status N/A [facility] 05-30-2022 Functional Status N/A [facility] 05-05-2022 Functional Status N/A [facility] Clinical Notes 12-29-2020 to 12-14-2023 Note Date & Type Note Facility 12-14-2023 Hospital Discharg e instructions Patient Education 12/14/2023 10:59:33 Urinary Incontinence Urinary Incontinence Urinary incontinence refers to a condition in which a person is unable to control where and when to pass urine. A person with this condition will urinate involuntarily. This means that the person urinates when he or she does not mean to. What are the causes? This condition may be caused by: Medicines. Infections. Constipation. Overactive bladder muscles. Weak bladder muscles. Weak pelvic floor muscles. These muscles provide support for the bladder, intestine, and, in women, the uterus. Enlarged prostate in men. The prostate is a gland near the bladder. When it gets too big, it can pinch the urethra. With the urethra blocked, the bladder can weaken and lose the ability to empty properly. Surgery. Emotional factors, such as anxiety, stress, or post-traumatic stress disorder (PTSD). Spinal cord injury, nerve injury, or other neurological conditions. Pelvic organ prolapse. This happens in women when organs move out of place and into the vagina. This movement can prevent the bladder and urethra from working properly. What increases the risk? The following factors may make you more likely to develop this condition: Age. The older you are, the higher the risk. Obesity. Being physically inactive. and childbirth. Menopause. Diseases that affect the nerves or spinal cord. Long-term, or chronic, coughing. This can increase pressure on the bladder and pelvic floor muscles. What are the signs or symptoms? Symptoms may vary depending on the type of urinary incontinence you have. They include: A sudden urge to urinate, and passing urine involuntarily before you can get to a bathroom (urge incontinence). Suddenly passing urine when doing activities that force urine to pass, such as coughing, laughing, exercising, or sneezing (stress incontinence). Needing to urinate often but urinating only a small amount, or constantly dribbling urine (overflow incontinence). Urinating because you cannot get to the bathroom in time due to a physical disability, such as arthritis or injury, or due to a communication or thinking problem, such as Alzheimer's disease (functional incontinence). How is this diagnosed? This condition may be diagnosed based on: Your medical history. A physical exam. Tests, such as: ?Urine tests. ?X-rays of your kidney and bladder. ?Ultrasound. ?CT scan. ?Cystoscopy. In this procedure, a health care provider inserts a tube with a light and camera (cystoscope) through the urethra and into the bladder to check for problems. ?Urodynamic testing. These tests assess how well the bladder, urethra, and sphincter can store and release urine. There are different types of urodynamic tests, and they vary depending on what the test is measuring. To help diagnose your condition, your health care provider may recommend that you keep a log of when you urinate and how much you urinate. How is this treated? Treatment for this condition depends on the type of incontinence that you have and its cause. Treatment may include: Lifestyle changes, such as: ?Quitting smoking. ?Maintaining a healthy weight. ?Staying active. Try to get 150 minutes of moderate-intensity exercise every week. Ask your health care provider which activities are safe for you. ?Eating a healthy diet. ?Avoid high-fat foods, like fried foods. ?Avoid refined carbohydrates like white bread and white rice. ?Limit how much alcohol and caffeine you drink. ?Increase your fiber intake. Healthy sources of fiber include beans, whole grains, and fresh fruits and vegetables. Behavioral changes, such as: ?Pelvic floor muscle exercises. ?Bladder training, such as lengthening the amount of time between bathroom breaks, or using the bathroom at regular intervals. ?Using techniques to suppress bladder urges. This can include distraction techniques or controlled breathing exercises. Medicines, such as: ?Medicines to relax the bladder muscles and prevent bladder spasms. ?Medicines to help slow or prevent the growth of a man's prostate. ?Botox injections. These can help relax the bladder muscles. Treatments, such as: ?Using pulses of electricity to help change bladder reflexes (electrical nerve stimulation). ?For women, using a medical economics consultant to prevent urine leaks. This is a small, tampon-like, disposable device that is inserted into the urethra. ?Injecting collagen or carbon beads (bulking agents) into the urinary sphincter. These can help thicken tissue and close the bladder opening. ?Surgery. Follow these instructions at home: Lifestyle Limit alcohol and caffeine. These can fill your bladder quickly and irritate it. Keep yourself clean to help prevent odors and skin damage. Ask your health care provider about special skin creams and cleansers that can protect the skin from urine. Consider wearing pads or adult diapers. Make sure to change them regularly, and always change them right after experiencing incontinence. General instructions Take qfpl-cos-eyhadna and prescription medicines only as told by your health care provider. Use the bathroom about every 3 4 hours, even if you do not feel the need to urinate. Try to empty your bladder completely every time. After urinating, wait a minute. Then try to urinate again. Make sure you are in a relaxed position while urinating. If your incontinence is caused by nerve problems, keep a log of the medicines you take and the times you go to the bathroom. Keep all follow-up visits. This is important. Where to find more information National [place] of Diabetes and Digestive and Kidney Diseases: www.niddk.nih.gov [employer]: www.urologyhealth.org Contact a health care provider if: You have pain that gets worse. Your incontinence gets worse. Get help right away if: You have a fever or chills. You are unable to urinate. You have redness in your groin area or down your legs. Summary Urinary incontinence refers to a condition in which a person is unable to control where and when to pass urine. This condition may be caused by medicines, infection, weak bladder muscles, weak pelvic floor muscles, enlargement of the prostate (in men), or surgery. Factors such as older age, obesity, and childbirth, menopause, neurological diseases, and chronic coughing may increase your risk for developing this condition. Types of urinary incontinence include urge incontinence, stress incontinence, overflow incontinence, and functional incontinence. This condition is usually treated first with lifestyle and behavioral changes, such as quitting smoking, eating a healthier diet, and doing regular pelvic floor exercises. Other treatment options include medicines, bulking agents, medical devices, electrical nerve stimulation, or surgery. This information is not intended to replace advice given to you by your health care provider. Make sure you discuss any questions you have with your health care provider. Document Revised: 05/27/2021 Document Reviewed: 05/27/2021 [employer] Patient Education 2022 [employer]. Follow Up Care 12/07/2023 15:16:05 With:DUC WALTERS, Homero Marie, URL Address: [facility] [address] , [place] [address]- [phone] When: only if needed [facility] 12-10-2023 Evaluation + Plan note Extrac yina from: Title:Pain Managment Follow up Author:Stephenie Claudio Date:12/10/23 Impression and Plan Patient is a 78-year-old male with a past medical history significant for postlaminectomy syndrome, lumbar spondylosis and sacroiliitis. Unfortunate, bilateral L3-5 RFA did not give him relief. The 2 medial branch blocks did. Previous caudal epidural steroid injection also did not give him any long-term relief. On physical examination some of his pain appears to be related to his sacroiliac joints. I recommended to patient bilateral sacroiliac joint injections under fluoroscopy for both diagnostic and therapeutic purposes. Procedure was discussed. Risk and benefits were discussed. Patient is agreeable. He will follow-up 2 weeks after the injection for reevaluation. Call clinic sooner if necessary. ZACARIAS score: 58% OARRS reviewed Future Appointments Appointment Date:12/14/2023 09:30:00 AM Scheduled Provider:Homero XAVIER MD Location:[facility] Appointment Type:URO Office Visit [facility]01-10-2024 History of Present illness Narrative* Marisol Connors MD - 11/14/2023 10:10 AM EST Subjective Ridge Roland is a 78 y.o. male Chief Complaint Follow-up HPI Patient is in the office for follow-up for the problems noted below accompanied by his . He hassignificant neuropathy which make him unsteady and uses a walker for ambulation leading occasionally to falls. He denies any symptoms of angina orthopnea PND or lower extremity edema and has had no side effect of medications. His labs have been followed mostly by his PCP and they were requested. His examination was unremarkable as noted today. His medical therapy was reviewed with no changes needed. Assessment/recommendations: 1-coronary artery disease status post angioplasty of the ostial right coronary artery June 2019 for 80% stenosis with drug-eluting stent. Currently he is on guideline directed medical therapy for chronic ischemic heart disease and stable 2-hypertension on medical therapy presently under control 3-class I obesity. encouragement for weight loss was provided emphasizing low calorie diet 4-hyperlipidemia on statin therapy. Lipid profile is ordered 5-Severe peripheral neuropathy limit his daily activities 6-chronic arthritis which limits the patient's mobility. 7-at risk for fall, education to prevent falls were discussed with the patient Review of Systems All other systems reviewed and are negative. Visit Vitals BP 100/64 (BP Location: Left arm, Patient Position: Sitting) Pulse 62 Ht 1.829 m (6') Wt 105 kg (231 lb) BMI 31.33 kg/m Smoking Status Former BSA 2.31 m Objective Physical Exam Constitutional: Appearance: Normal appearance. He is normal weight. HENT: Nose: Nose normal. Neck: Vascular: No carotid bruit. Cardiovascular: Rate and Rhythm: Normal rate. Pulses: Normal pulses. Heart sounds: Normal heart sounds. Pulmonary: Effort: Pulmonary effort is normal. Abdominal: General: Bowel sounds are normal. Palpations: Abdomen is soft. Genitourinary: Rectum: Normal. Musculoskeletal: General: Normal range of motion. Cervical back: Normal range of motion. Right lower leg: No edema. Left lower leg: No edema. Skin: General: Skin is warm and dry. Neurological: General: No focal deficit present. Mental Status: He is alert. Psychiatric: Mood and Affect: Mood normal. Behavior: Behavior normal. Thought Content: Thought content normal. Judgment: Judgment normal. Current Medications Current Outpatient Medications: allopurinol (Zyloprim) 300 mg tablet, Take 1 tablet (300 mg) by mouth once daily., Disp: , Rfl: amLODIPine (Norvasc) 5 mg tablet, Take 1 tablet (5 mg) by mouth once daily., Disp: , Rfl: ascorbic acid (Vitamin C) 1,000 mg tablet, Take 1 tablet (1,000 mg) by mouth once daily., Disp: , Rfl: aspirin 81 mg chewable tablet, Chew 1 tablet (81 mg) once daily., Disp: , Rfl: atorvastatin (Lipitor) 40 mg tablet, TAKE 1 TABLET BY MOUTH EVERY DAY, Disp: 90 tablet, Rfl: 3 calcium carbonate 600 mg calcium (1,500 mg) tablet, every 12 hours., Disp: , Rfl: cyanocobalamin, vitamin B-12, (Vitamin B-12) 1,000 mcg tablet extended release, Take 1 tablet (1,000 mcg) by mouth once daily., Disp: , Rfl: hydroCHLOROthiazide (HYDRODiuril) 25 mg tablet, Take 1 tablet (25 mg) by mouth once daily., Disp: ,Rfl: Klor-Con M20 20 mEq ER tablet, Take 1 tablet (20 mEq) by mouth once daily., Disp: , Rfl: LUTEIN-ZEAXANTHIN ORAL, Take 1 capsule by mouth once daily., Disp: , Rfl: nitroglycerin (Nitrostat) 0.4 mg SL tablet, Place 1 tablet (0.4 mg) under the tongue every 5 minutes if needed., Disp: , Rfl: pregabalin (Lyrica) 25 mg capsule, Take 1 capsule (25 mg) by mouth once daily., Disp: , Rfl: solifenacin (VESIcare) 10 mg tablet, Take 1 tablet (10 mg) by mouth once daily., Disp: , Rfl: Scribe Attestation By signing my name below, Ria, Ruby GaoIlir SILVA , Scribe attest that this documentation has been prepared under the direction and in the presence of Marisol Connors MD. Assessment/Plan 1. Arteriosclerosis of coronary artery Follow Up In Cardiology 2. Status post coronary angioplasty 3. Dyslipidemia 4. Essential hypertension 5. Obesity (BMI 30.0-34.9) 6. At risk for falls [facility] Work Phone: 1(781) 155-415001-10-2024 Instructions* Patient Instructions* Steven Wheeler MA - 11/14/2023 10:10 AM EST Please bring all medicines, vitamins, and herbal supplements with you when you come to the office. Prescriptions will not be filled unless you are compliant with your follow up appointments or have a follow up appointment scheduled as per instruction of your physician. Refills should be requested at the time of your visit. Fall Prevention Education Given documented in this encounterUniversity [facility] Work Phone: [phone]) 508-192201-05-2024 Evaluation + Plan noteExtracted from: Title:Pain Managment Follow up Author:Stephenie Claudio Date:11/09/23 Impression and Plan Patient is a 78-year-old male with a past medical history significant for postlaminectomy syndrome, chronic pain, and lumbar spondylosis. Unfortunate, recent bilateral L3-5 facet RFA has not given him the relief he is looking for. This was done on 10/08/2023. We had a long discussion with the RFA process. I would recommend he give himself some more time. Questions and concerns and RFA were discussed. Patient is agreeable. In the meantime, we will restart him back on the Lyrica as it looks as though it was only discontinued because he failed to call for refill. He also inquired about medical marijuana. We will give him information of a local provider he can reach out to should he want to consider this but this is not something that we do. He voiced understanding. At this time he will restart the Lyrica. OARRS reviewed and prescription sent to the pharmacy and he will follow- up in 1 month. Call the clinic sooner if necessary. ZACARIAS score: 44% Future Appointments Appointment Date:12/10/2023 11:15:00 AM Scheduled Provider:Bib Sanchez MD [facility] [place] [facility] Type:Pain Management - Follow Up (FT) Appointment Date:12/11/2023 01:00:00 PM Scheduled Provider:ALANIS LAYTON PA-C Location:[facility] [place] Appointment Type:URO Office Visit [facility]12-19-2023 Evaluation note* Encounter Date Diagnosis Assessment Notes Treatment Notes Treatment Clinical Notes Oct, ASHD (arteriosclerot ic heart disease) (ICD-10 - I25.10) This patient is stable without activity related CP, dyspnea or lightheadedness. They are instructed to continue exercise and AHA diet plan. Continue secondary prevention measures. Oct, Hypercholesterolemia (ICD-10 - E78.00) Instructed on diet and exercise with continued statin therapy.Discussed the beneficial effects of lowering cholesterol in reducing the risk for cerebrovascular and cardiovascular disease. Oct, Primary hypertension (ICD-10 - I10) This patient is instructed to consume a healthy, low-fat, low-salt diet. They are also encouraged to continue exercise to achieve/maintain a normal BMI. Oct, IFG (impaired fastin g glucose) (ICD-10 - R73.01) Healthy diet, avoid sweets. He has lost weight, could be his IFG has worsened to dx of DM Check A1C, FBS Oct, Lumbar spondylosis (ICD-10 - M47.816) The patient is instructed to avoid bending, twisting or lifting. They are to use intermittent heat and ice as needed. They may schedule a massage or gentle manipulation. They may safely use Tylenol as needed. f/u pain management Keep active Fall precautions Oct, Polyneuropathy (ICD- 10 - G62.9) Fall precautions Inspect feet daily for cuts and calluses. Use of assistive device: walker preferred over cane. PT declined Medical therapy failed to improve his symptoms Oct, Unintentional weight loss (ICD-10 - R63.4) Oct, Overweight (ICD-10 - E66.3) This patient has been instructed on a low-fat, high-fiber diet. They are instructed to reduce calories, portion sizes and snacks. It is recommended that they exercise for 30 minutes, 3-5 times weekly. Oct, Fatigue, unspecified type (ICD-10 - R53.83) [facility] Other 12-04-2023 Note [id number]#1.00[facility] 09-14-2023 Evaluation + Plan noteExtracted from: Title:Pain Managment Follow up Author:Stephenie Claudio Date:09/14/23 Impression and Plan Patient is a 77-year-old male with a past medical history significant cannot for lumbar spondylosis, postlaminectomy syndrome, and chronic low back pain. Patient underwent his second bilateral L3-4 and L4-5 facet medial branch block done on 09/04/2023. He gave him 80% relief for the day. Unfortunate, his back pain then returned. Since he has done well with both medial branch blocks I discussed with patient pursuing bilateral L3-4 and L4-5 facet RFA under fluoroscopy. Procedure was discussed. Risk and benefits were discussed. Patient is agreeable. He will follow-up 3 weeks after the RFA for reevaluation. Call clinic sooner if necessary. Due to how much the injection hurt him and how uncomfortable he is while he lays there doing it he would like to have this done under MAC anesthesia moderate sedation. He is aware of the risks. Questions and concerns were all answered and discussed. He will follow-up as above mentioned ZACARIAS score: 28% [facility]10-31-2023 Note [id number]#1.00[facility]23 [id number]#1.00CD:[address] [place], [place] 7822807-25-2023 Note [id number]#1.00CD:[address] [place] [address] 05-11-2023 Evaluation + Plan noteExtracted from: Title:Pain Managment Follow up Author:Stephenie Claudio Date:05/11/23 Impression and Plan Patient is a 77-year-old male with a past medical history significant for previous lumbar fusion, lumbar stenosis, lumbar neuritis, neuropathy and lumbar spondylosis. Patient unfortunate, did not get short-term relief from the recent repeat medial branch block. He states he just does not understand why he cannot feel better. The first meal branch block helped. The second did not. We had a long discussion about this. We reviewed the MRI. We discussed different options. He had questions and concerns that were all answered and discussed. He is going to continue on the Lyrica. He is going to call for any refills. OARRS reviewed. Based on his MRI findings, his pain pattern and his failure to improve with previous conservative treatments I recommended to patient a caudal epidural steroid injection for both diagnostic and therapeutic purposes. This to be done under fluoroscopy. Procedure was discussed. Risks and benefits were discussed. Patient is agreeable. He will follow-up 2 weeks after the injection for reevaluation. Call the clinic sooner if necessary. ZACARIAS score: 42% [facility]06-29-2023 Evaluation note* Encounter Date Diagnosis Assessment Notes Treatment Notes Treatment Clinical Notes Apr, Thyroid cyst (ICD-10 - E04.1) FNA non-diagnostic - US: stable nodules, no further scans necessary - 04/2023 [facility] Other 06-27-2023 Note [id number]#1.00CD:[address] [place] [address] 03-19-2023 Evaluation + Plan noteExtracted from: Title:Pain Managment Follow up Author:Stephenie Claudio Date:03/19/23 Impression and Plan Patient is a 77-year-old male with a past medical history significant for previous lumbar surgery, previous lumbar fusion, lumbosacral spondylosis and neuropathy. In regards to his lumbar spondylosis he underwent recent bilateral L3-4 medial branch block. This gave him 80% relief for 4 hours. It was done on 03/12/2023 and he states that his back pain was significantly improved. Unfortunate, his back pain has since returned. Left side greater than right side. This affects his ability to stand and walk for any extended period of time. Since he did well with recent bilateral medial branch block I recommended once again pursuing bilateral L3-4 medial branch block for diagnostic purposes. If he gets significant short-term relief he may be a future candidate for RFA. Procedure was discussed. Risks and benefits were discussed. Patient is agreeable. He will follow-up 1 week after the injection for reevaluation. Call the clinic sooner if necessary. In regards to his neuropathy he wonders what his options were. Gabapentin has not helped. He used this in the past. We discussed trialing Lyrica. 25 mg twice daily. Potential side effects were discussed. OARRS was reviewed. Patient will follow- up as above mentioned. Call clinic sooner if necessary. 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 Radiology: I was able to look at the patient's new MRI read. He does have a previous L3-4 laminectomy as well as L4-5. There is significant scarring which does cause moderate central canal stenosis and foraminal stenosis. Physically: Patient needs to work diligently in physical therapy. His numbness and his deconditioned state do throughout his gait is balance in the only way to regain this is by working and strengthening up his musculature and working with physical therapy to help with his gait and balance. Psychologically: Nothing at this time Medication: Nothing at this time Duration: Approximately 1 year Intervention: No intervention at this time Dec, Balance problem (ICD-10 - R26.89) Dec, Physical deconditioning (ICD-10 - R53.81) [facility]. Other 01-25-2023 Evaluation note* Encounter Date Diagnosis Assessment Notes Treatment Notes Treatment Clinical Notes Nov, Low back pain, unspecified (ICD-10 - M54.50) Nov, Other chronic pain (ICD-10 - G89.29) [facility] Other 01-24-2023 Hospital Discharge instructions Patient Education 11/28/2022 09:06:12 Benign Prostatic Hyperplasia Benign Prostatic Hyperplasia Benign prostatic hyperplasia (BPH) is an enlarged prostate gland that is caused by the normal agingprocess and not by cancer. The prostate is a walnut-sized gland that is involved in the production of semen. It is located in front of the rectum and below the bladder. The bladder stores urine and the urethra is the tube that carries the urine out of the body. The prostate may get bigger as a man gets older. An enlarged prostate can press on the urethra. This can make it harder to pass urine. The build-up of urine in the bladder can cause infection. Back pressure and infection may progress to bladder damage and kidney (renal) failure. What are the causes? This condition is part of a normal aging process. However, not all men develop problems from this condition. If the prostate enlarges away from the urethra, urine flow will not be blocked. If it enlarges toward the urethra and compresses it, there will be problems passing urine. What increases the risk? This condition is more likely to develop in men over the age of 50 years. What are the signs or symptoms? Symptoms of this condition include: Getting up often during the night to urinate. Needing to urinate frequently during the day. Difficulty starting urine flow. Decrease in size and strength of your urine stream. Leaking (dribbling) after urinating. Inability to pass urine. This needs immediate treatment. Inability to completely empty your bladder. Pain when you pass urine. This is more common if there is also an infection. Urinary tract infection (UTI). How is this diagnosed? This condition is diagnosed based on your medical history, a physical exam, and your symptoms. Tests will also be done, such as: A post-void bladder scan. This measures any amount of urine that may remain in your bladder after you finish urinating. A digital rectal exam. In a rectal exam, your health care provider checks your prostate by putting a lubricated, gloved finger into your rectum to feel the back of your prostate gland. This exam detects the size of your gland and any abnormal lumps or growths. An exam of your urine (urinalysis). A prostate specific antigen (PSA) screening. This is a blood test used to screen for prostate cancer. An ultrasound. This test uses sound waves to electronically produce a picture of your prostate gland. Your health care provider may refer you to a specialist in kidney and prostate diseases (urologist). How is this treated? Once symptoms begin, your health care provider will monitor your condition (active surveillance or watchful waiting). Treatment for this condition will depend on the severity of your condition. Treatment may include: Observation and yearly exams. This may be the only treatment needed if your condition and symptoms are mild. Medicines to relieve your symptoms, including: ?Medicines to shrink the prostate. ?Medicines to relax the muscle of the prostate. Surgery in severe cases. Surgery may include: ?Prostatectomy. In this procedure, the prostate tissue is removed completely through an open incision or with a laparoscope or robotics. ?Transurethral resection of the prostate (TURP). In this procedure, a tool is inserted through the opening at the tip of the penis (urethra). It is used to cut away tissue of the inner core of the prostate. The pieces are removed through the same opening of the penis. This removes the blockage. ?Transurethral incision (TUIP). In this procedure, small cuts are made in the prostate. This lessens the prostate's pressure on the urethra. ?Transurethral microwave thermotherapy (TUMT). This procedure uses microwaves to create heat. The heat destroys and removes a small amount of prostate tissue. ?Transurethral needle ablation (TUNA). This procedure uses radio frequencies to destroy and remove a small amount of prostate tissue. ?Interstitial laser coagulation (ILC). This procedure uses a laser to destroy and remove a small amount of prostate tissue. ?Transurethral electrovaporization (TUVP). This procedure uses electrodes to destroy and remove a small amount of prostate tissue. ?Prostatic urethral lift. This procedure inserts an implant to push the lobes of the prostate away from the urethra. Follow these instructions at home: Take cgot-gth-ftdswef and prescription medicines only as told by your health care provider. Monitor your symptoms for any changes. Contact your health care provider with any changes. Avoid drinking large amounts of liquid before going to bed or out in public. Avoid or reduce how much caffeine or alcohol you drink. Give yourself time when you urinate. Keep all follow-up visits as told by your health care provider. This is important. Contact a health care provider if: You have unexplained back pain. Your symptoms do not get better with treatment. You develop side effects from the medicine you are taking. Your urine becomes very dark or has a bad smell. Your lower abdomen becomes distended and you have trouble passing your urine. Get help right away if: You have a fever or chills. You suddenly cannot urinate. You feel lightheaded, or very dizzy, or you faint. There are large amounts of blood or clots in the urine. Your urinary problems become hard to manage. You develop moderate to severe low back or flank pain. The flank is the side of your body between the ribs and the hip. These symptoms may represent a serious problem that is an emergency. Do not wait to see if the symptoms will go away. Get medical help right away. Call your local emergency services (911 in the [place] Do not drive yourself to the hospital. Summary Benign prostatic hyperplasia (BPH) is an enlarged prostate that is caused by the normal aging process and not by cancer. An enlarged prostate can press on the urethra. This can make it hard to pass urine. This condition is part of a normal aging process and is more likely to develop in men over the age of 50 years. Get help right away if you suddenly cannot urinate. This information is not intended to replace advice given to you by your health care provider. Make sure you discuss any questions you have with your health care provider. Document Released: 10/22/2006 Document Revised: 09/16/2019 Document Reviewed: 11/26/2017 [employer] Patient Education 2020 [employer]. Follow Up Care 08/31/2022 09:40:03 With:NINA SHIPMAN, ALANIS Bustillo, URL Address: [address] [place] [address] When: Unknown [facility] [place] 07-26-2022 Hospital Discharge instructions Patient Education 05/30/2022 10:31:33 Benign Prostatic Hyperplasia Benign Prostatic Hyperplasia Benign prostatic hyperplasia (BPH) is an enlarged prostate gland that is caused by the normal agingprocess and not by cancer. The prostate is a walnut-sized gland that is involved in the production of semen. It is located in front of the rectum and below the bladder. The bladder stores urine and the urethra is the tube that carries the urine out of the body. The prostate may get bigger as a man gets older. An enlarged prostate can press on the urethra. This can make it harder to pass urine. The build-up of urine in the bladder can cause infection. Back pressure and infection may progress to bladder damage and kidney (renal) failure. What are the causes? This condition is part of a normal aging process. However, not all men develop problems from this condition. If the prostate enlarges away from the urethra, urine flow will not be blocked. If it enlarges toward the urethra and compresses it, there will be problems passing urine. What increases the risk? This condition is more likely to develop in men over the age of 50 years. What are the signs or symptoms? Symptoms of this condition include: Getting up often during the night to urinate. Needing to urinate frequently during the day. Difficulty starting urine flow. Decrease in size and strength of your urine stream. Leaking (dribbling) after urinating. Inability to pass urine. This needs immediate treatment. Inability to completely empty your bladder. Pain when you pass urine. This is more common if there is also an infection. Urinary tract infection (UTI). How is this diagnosed? This condition is diagnosed based on your medical history, a physical exam, and your symptoms. Tests will also be done, such as: A post-void bladder scan. This measures any amount of urine that may remain in your bladder after you finish urinating. A digital rectal exam. In a rectal exam, your health care provider checks your prostate by putting a lubricated, gloved finger into your rectum to feel the back of your prostate gland. This exam detects the size of your gland and any abnormal lumps or growths. An exam of your urine (urinalysis). A prostate specific antigen (PSA) screening. This is a blood test used to screen for prostate cancer. An ultrasound. This test uses sound waves to electronically produce a picture of your prostate gland. Your health care provider may refer you to a specialist in kidney and prostate diseases (urologist). How is this treated? Once symptoms begin, your health care provider will monitor your condition (active surveillance or watchful waiting). Treatment for this condition will depend on the severity of your condition. Treatment may include: Observation and yearly exams. This may be the only treatment needed if your condition and symptoms are mild. Medicines to relieve your symptoms, including: ?Medicines to shrink the prostate. ?Medicines to relax the muscle of the prostate. Surgery in severe cases. Surgery may include: ?Prostatectomy. In this procedure, the prostate tissue is removed completely through an open incision or with a laparoscope or robotics. ?Transurethral resection of the prostate (TURP). In this procedure, a tool is inserted through the opening at the tip of the penis (urethra). It is used to cut away tissue of the inner core of the prostate. The pieces are removed through the same opening of the penis. This removes the blockage. ?Transurethral incision (TUIP). In this procedure, small cuts are made in the prostate. This lessens the prostate's pressure on the urethra. ?Transurethral microwave thermotherapy (TUMT). This procedure uses microwaves to create heat. The heat destroys and removes a small amount of prostate tissue. ?Transurethral needle ablation (TUNA). This procedure uses radio frequencies to destroy and remove a small amount of prostate tissue. ?Interstitial laser coagulation (ILC). This procedure uses a laser to destroy and remove a small amount of prostate tissue. ?Transurethral electrovaporization (TUVP). This procedure uses electrodes to destroy and remove a small amount of prostate tissue. ?Prostatic urethral lift. This procedure inserts an implant to push the lobes of the prostate away from the urethra. Follow these instructions at home: Take [id number]-cyi-[id number] and prescription medicines only as told by your health care provider. Monitor your symptoms for any changes. Contact your health care provider with any changes. Avoid drinking large amounts of liquid before going to bed or out in public. Avoid or reduce how much caffeine or alcohol you drink. Give yourself time when you urinate. Keep all follow-up visits as told by your health care provider. This is important. Contact a health care provider if: You have unexplained back pain. Your symptoms do not get better with treatment. You develop side effects from the medicine you are taking. Your urine becomes very dark or has a bad smell. Your lower abdomen becomes distended and you have trouble passing your urine. Get help right away if: You have a fever or chills. You suddenly cannot urinate. You feel lightheaded, or very dizzy, or you faint. There are large amounts of blood or clots in the urine. Your urinary problems become hard to manage. You develop moderate to severe low back or flank pain. The flank is the side of your body between the ribs and the hip. These symptoms may represent a serious problem that is an emergency. Do not wait to see if the symptoms will go away. Get medical help right away. Call your local emergency services (911 in the [place] Do not drive yourself to the hospital. Summary Benign prostatic hyperplasia (BPH) is an enlarged prostate that is caused by the normal aging process and not by cancer. An enlarged prostate can press on the urethra. This can make it hard to pass urine. This condition is part of a normal aging process and is more likely to develop in men over the age of 50 years. Get help right away if you suddenly cannot urinate. This information is not intended to replace advice given to you by your health care provider. Make sure you discuss any questions you have with your health care provider. Document Released: 10/22/2006 Document Revised: 09/16/2019 Document Reviewed: 11/26/2017 [employer] Patient Education 2020 [employer]. Follow Up Care 05/11/2022 10:39:09 With:Remy Bernal MD, Goldy Collins [facility] Address: [facility] [address], [place] [address]- [phone] When:Within 2 Month(s) Comments:PVR [facility] 07-07-2022 Hospital Discharge instructions Patient Education 05/11/2022 10:29:49 EU - Cystoscopy with Botox Injection Discharge Instructions (Custom) Cystoscopy with Botox injection Voiding after the procedure: there may be some pain, burning, urgency, frequency and blood tinged urine following the procedure. These symptoms usually resolve within 2-5 days. Drink the amount of fluid it takes to keep the urine pink to yellow or clear in color. Drinking enough water and fluids will help to ease any discomfort after your procedure. It may take a few days to a week to notice a gradual improvement in the overactive bladder symptoms. If you are having problems that seem out of the ordinary, please call. If unable to contact your physician and you feel it is an emergency, go to the nearest emergency room or call 911 Do not lift more than fifteen pounds for 1-2 days. If you see a lot of blood, you probably did too much. Diet you may resume your normal diet. Pain control You may take extra strength Tylenol or Motrin for discomfort. Call if you have a fever over 100 degrees. Follow Up Care 03/14/2022 16:38:15 With:Goldy Alberto Address: [facility] [address], [facility] [place] [address]- Business (1) When:4 weeks Comments:PVR with next office visit [facility]06-15-2021 NoteHNO ID: [id number] Author: Alanis Nguyen MD Service: ? Author Type: Physician Type: Progress Notes Filed: 04/19/2021 8:53 AM Note Text: Neurology Follow-Up - April 19, 2021 Ridge Roland is following up for neuropathy. He was last seen on 11/16/20. Notes from previous visits are as follows: 07/27/20: He started with LBP in 2015. Had had L4-5 laminectomy in Feb 2018(Dr. Smita lucio). He continued to have LBP, had fusion at L4-5 in Sep 2018. Fusion helped for a few months but had recurrence of LBP. He had a second opinion with Dr. Quezada([facility]), felt that he did not need the hardware and felt nerve was pinched so he had removal of hardware with laminectomy at L3-4 in Oct 2019. LBP improved after the Oct 2019. ? Numbness in the feet started after the second surgery (sep 2018). At times, numbness may go up the mid calves. He admits to have intermittent sharp pains in the feet, no night awakenings. No hand symptoms. He was tried on gabapentin with no benefit hence discontinued. Balance issues started in Nov 2018, remembers he golfed after Sep 2018 surgery. He reports that he veers to either side and needs to ambulate with assistance for long distances as he is unable to feel where his feet are. He is able to ambulate without assistance inside the house(100-200 yards). 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 He established with Dr. Guillen - had EMG(generalized polyneuropathy with lumbar radiculopathy) and spinal tap. They were told that he had proteins in the CSF, CIDP considered. He had a 5 day course of IVIG in Apr 2019 which helped numbness by 15-20%. He had repeat dose in Aug 2019 with minimal to no benefit. ? He had second opinion with Dr. Moreland in Apr 2020, did not feel he had CIDP based on EMG and LP results. Repeat EMG in [facility] (Apr 2020) showed moderate sensorimotor polyneuropathy and lumbar radiculopathy. ? He has tried PT in the past for the LBP, last PT(21 sessions) was in Nov 2019 which h he thought helped. He is not compliant with exercises.? He does not have a dietary preference,?(+)?EtOH - 2 shots per day x 50 years; he?takes the following?supplements - vit D, calcium, vit C. No known exposure to heavy metals or toxins, no chemotherapeutic agents. ? 11/16/20: Blood work from last visit showed low B12 (297), he is currently taking B12 supplementation. He went to PT but had to stop due to pandemic and could not tolerate due to back pain. He f/u with back surgeon but xrays were negative. Then he started going to the rec center but had cataract surgeries(11/02/20 and 11/11/20). He is doing well post op but was told not to strain hence has not been back to the rec center. He is not compliant with PT exercises. He continues to have numbness in the feet with intermittent tingling, no sharp/burning pain. ?On 11/08/20, he tripped over the laundry basket and had a cut on the right forehead. No loss of consciousness, he was brought to [facility] needing stitches. CT c- spine showed degenerative changes from C2-C4 but no acute fracture or subluxation seen. Ct brain showed no bleed. ? Interval history: He is accompanied by . B12 /MMA from last visit(Nov 2020) improved, 714/129(297/153). He remains on B12 replacement. He feels he is better, he is more physically activity - he feels he is walking better, able to do outdoor stuff easier. No fall from last visit. He is able to ambulate short distances w/o assistance, has a walker/scooter/cane if needed. He tried PT 3-4x from last visit but did not think it was doing enough as he can do more at the [facility]. They are planning to go back to the [facility]. Current Outpatient Medications Medication Sig Dispense Refill - tolterodine (DETROL) 2 mg tablet Take 2 mg by mouth twice daily. - cyanocobalamin (VITAMIN B-12) 1,000 mcg tab Take 1,000 mcg by mouth once daily. - Ascorbic Acid (VITAMIN C) 1,000 mg tablet Take 1,000 mg by mouth once daily. - amLODIPine (NORVASC) 5 mg tablet Take 5 mg by mouth. - allopurinol (ZYLOPRIM) 100 mg tablet - aspirin, enteric coated (ASPIRIN, ENTERIC COATED) 81 mg EC tablet Take 81 mg by mouth. - clopidogrel (PLAVIX) 75 mg tablet Take 75 mg by mouth. - hydroCHLOROthiazide (HYDRODIURIL, ESIDRIX) 25 mg tablet Take 25 mg by mouth. - calcium carbonate/vitamin D3 (CALCIUM 600 + D ORAL) Take by mouth. Daily PM - lutein-zeaxanthin 25-5 mg cap Take by mouth. am No current facility-administered medications for this visit. Family and social history reviewed, unchanged. REVIEW OF SYSTEMS: per HPI General: no wt. loss/gain, change in appetite, fever, malaise HEENT: no headache, problems with vision, hearing Cardiac: no chest pain, palpitation Respiratory: no shortness of breath, cough, cold GI: no change in bowel habits, abdominal pain : no incontinence, frequency, urgency Musculoskeletal: no joint/muscle pain, no s (more content not included)... [facility]02-24-2021 NotePatient Outreach (COVAMN) ASUNCIONRIDGE John ([id number]) 1945 M Date Time Provider Department 12/29/20 YARITZA WILLSON During your visit today, we recorded the following information about you: Allergies As of Date: 12/29/2020 (No Known Allergies) Date Reviewed: 11/16/2020 Reviewed by: Mauri Du) SHIRA Horn - Fully Assessed Order(s):SARS-COVID VACCINE 1ST DOSE APPT [[id number]] Order #: [id number] FUTURE Prescriptions as of 12/29/2020 Sig: CYANOCOBALAMIN (VIT B-12) 1,0* Take 1,000 mcg by mouth once * ASCORBIC ACID (VITAMIN C) 1,0* Take 1,000 mg by mouth once d* AMLODIPINE 5 MG TABLET Take 5 mg by mouth. ALLOPURINOL 100 MG TABLET ASPIRIN 81 MG TABLET,DELAYED * Take 81 mg by mouth. CLOPIDOGREL 75 MG TABLET Take 75 mg by mouth. HYDROCHLOROTHIAZIDE 25 MG TAB* Take 25 mg by mouth. CALCIUM 600 + D ORAL Take by mouth. Daily PM LUTEIN 25 MG-ZEAXANTHIN 5 MG * Take by mouth. am Problem List As Of Date: 12/29/2020 (None) Encounter Status:Closed by OSCAR SULLIVAN on 01/03/21[facility] Evaluation + Plan note Future Appointments Appointment Date:05/11/2022 10:00:00 AM Scheduled Provider: Location:[facility] Appointment Type:Urology FT [facility] evaluation + Plan note Future Appointments Appointment Date:05/30/2022 09:30:00 AM Scheduled Provider:Goldy Alberto Jr., MD Location:[facility] App[facility] Future Appointments Appointment Date:08/08/2022 08:45:00 AM Scheduled Provider:Goldy Alberto Jr., MD Location:[facility] Appointment Type:URO Office Visit [facility] evaluation + Plan note Future Appointments Appointment Date:01/10/2023 11:00:00 AM Scheduled Provider:ALANIS LAYTON PA-C Location:[facility] Appointment Type:URO Office Visit [facility] evaluation + Plan note Future Appointments Appointment Date:03/19/2023 08:30:00 AM Scheduled Provider:Stephenie Barrios PA-C Location:[facility] Appointment Type:Pain Management - [facility] Future Appointments Appointment Date:05/11/2023 10:00:00 AM Scheduled Provider:Stephenie Barrios PA-C Location:[facility] Appointment Type:[facility] Management - [facility] Future Appointments Appointment Date:08/28/2023 07:45:00 AM Scheduled Provider:Bib Sanchez MD Location:[facility] [place] Appointment Type:Pain Management - [facility] (FT[facility] [place] [facility] note Future Appointments Appointment Date:11/09/2023 11:15:00 AM Scheduled Provider:Stephenie Barrios PA-C Location:[facility] [place] Appointment Type:Pain Management - Follow Up (FT[facility] noteNo InformationNo[facility] [employer] Other Evaluation noteNoMicroEnsure [employer] Other Evaluation note* Diagnosis Arteriosclerosis of coronary artery- Primary Status post coronary angioplasty Postsurgical percutaneous transluminal coronary angioplasty status Dyslipidemia Other and unspecified hyperlipidemia Essential hypertension Unspecified essential hypertension Obesity (BMI 30.0-34.9) At risk for falls Personal history of fall documented in this encounter [facility] Work Phone: History general Narrative - Reported* Type Description Date Medical History HTN Medical History neuropathy Medical History arthritis Medical History heart stent Medical History cataracts Medical History Gout Medical History high cholesterol Medical History prostate Surgical History heart cath with stent placed Surgical History back surgery x 2 Surgical History hernia repair Hospitalization History see surg hx [facility] [employer] Other Hiskifj general Narrative - Reported* Type Description Date Medical History hypertension Medical History neuropathy Surgical History cardiac stent placement Surgical History fusion lumbar Surgical History removal of hardware lumbar spin e Surgical History 4 surgeries to lumbar spine Surgical History right total knee replacement Surgical History right carpal tunnel surgery Surgical History abdominal hernia repair Surgical History cataract surgery both eyes Hospitalization History see surgery list [facility] Other Hisk[facility] general [facility] - [facility] [employer] Other Hospital course Narrative No data available for this section [facility] re3D Hospital Discharge instructions No data available for this section [facility] re3D progress note No data available for this section [facility] re3D reason for referral (narrative)* Consultation (Routine) - Authorized Specialty Diagnoses / Procedures Referred By Jonathan gann Referred To Contact Cardiology Diagnoses Arteriosclerosis of coronary artery Procedures Follow Up In Cardiology Marisol Connors MD [address] [place] [address], [address] [address] Marisol Connors MD [address] [place] [address] 2, [address] [address] Referral ID Status Reason Start Date Expiration Date V isits Requested Visits Authorized [id number] Authorized 11/14/2023 11/13/2024 1 1 [facility] Work Phone: Summary Purpose Family History No Family History Records Found Relationship Condition Age at Onset Recorded Date/T beatriz Not Specified No pertinent family history Unknown Unknown Family Member Name Dates Details Family history of diabetes m ellitus: Mother(V18.0, Z83.3) Status:Active Family history of bundle bra nch block: Sister(V17.49, Z82.49) Status:Active Unknown Family Member Name Dates Details Family history of diabetes m ellitus: Mother(V18.0, Z83.3) Status:Active Family history of bundle bra nch block: Sister(V17.49, Z82.49) Status:Active Unknown Family Member Name Dates Details Family history of diabetes m ellitus: Mother(V18.0, Z83.3) Status:Active Family history of bundle bra nch block: Sister(V17.49, Z82.49) Status:Active Unknown Family Member Name Dates Details Family history of diabetes m ellitus: Mother(V18.0, Z83.3) Status:Active Family history of bundle bra nch block: Sister(V17.49, Z82.49) Status:Active Unknown Family Member Name Dates Details Family history of diabetes m ellitus: Mother(V18.0, Z83.3) Status:Active Family history of bundle bra nch block: Sister(V17.49, Z82.49) Status:Active Unknown Family Member Name Dates Details Family history of diabetes m ellitus: Mother(V18.0, Z83.3) Status:Active Family history of bundle bra nch block: Sister(V17.49, Z82.49) Status:Active Unknown Family Member Name Dates Details Family history of diabetes m ellitus: Mother(V18.0, Z83.3) Status:Active Family history of bundle bra nch block: Sister(V17.49, Z82.49) Status:Active Advance Directives No Advanced Directives Records FoundNo Advanced Directives Records FoundNo Advanced Directives Records FoundNo Advanced Directives Records FoundNo Advanced Directives Records FoundNo Advanced Directives Records FoundNo Advanced Directives Records FoundNo Advanced Directives Records Found Assessments No Assessments Information Available Chief Complaint * RIDGE ROLAND is being seen for a 8 month follow-up of. * Patient is in the office with his for follow-up for the problems noted below. 3 weeks ago he underwent right knee replacement surgery without any complications. He is contemplating surgery on the other side. He reports no palpitations or chest pain no angina pectoris. His blood pressure is under control. His weight has dropped significantly from last visit. Encouragement provided for more weight loss. * Asessment/recommendations: * 1 coronary artery disease status post angioplasty of the ostial right coronary artery June 2019 for 80% stenosis with drug-eluting stent. Currently he is on guideline directed medical therapy for chronic ischemic heart disease and stable patient does not need to continue on the Plavix for the time being. That allows the patient to utilize NSAID for arthritis * 2 hypertension on medical therapy presently under control * 3 overweight. Encouraged patient once he get his surgery to try to lose more weight with regular exercise and low calorie diet. * 4 hyperlipidemia on statin therapy. Lipid profile is ordered * 5 Severe peripheral neuropathy limit his daily activities * RIDGE ROLAND is being seen for a 8 month follow-up of. * Patient is in the office with his for follow-up for the problems noted below. 3 weeks ago he underwent right knee replacement surgery without any complications. He is contemplating surgery on the other side. He reports no palpitations or chest pain no angina pectoris. His blood pressure is under control. His weight has dropped significantly from last visit. Encouragement provided for more weight loss. * Asessment/recommendations: * 1 coronary artery disease status post angioplasty of the ostial right coronary artery June 2019 for 80% stenosis with drug-eluting stent. Currently he is on guideline directed medical therapy for chronic ischemic heart disease and stable patient does not need to continue on the Plavix for the time being. That allows the patient to utilize NSAID for arthritis * 2 hypertension on medical therapy presently under control * 3 overweight. Encouraged patient once he get his surgery to try to lose more weight with regular exercise and low calorie diet. * 4 hyperlipidemia on statin therapy. Lipid profile is ordered * 5 Severe peripheral neuropathy limit his daily activities * RIDGE ROLAND is being seen for a 6 month follow-up of. * Patient is in the office with his for follow-up for the problems noted below. He reports no indication of angina pectoris. His arthritis it is still a problem for ambulation but despite that he lost nearly 10 pounds from last visit. His lab data from recent testing were reviewed and shared with him with no areas of concern noted. He had a fall over the summer which was accidental and education was provided to prevent future falls. He follows with PCP Dr. Hall on regular basis. Upcoming labdata should be forwarded to my attention. His card examination is normal his lungs sounded normal. He does not have any lower extremity edema. He does not have any side effect of current medications. * Assessment/recommendations: * 1 coronary artery disease status post angioplasty of the ostial right coronary artery June 2019 for 80% stenosis with drug-eluting stent. Currently he is on guideline directed medical therapy for chronic ischemic heart disease and stable * 2 hypertension on medical therapy presently under control * 3 overweight. Patient lost nearly 10 pounds from last visit and encouragement for more weight loss was provided * 4 hyperlipidemia on statin therapy. Lipid profile is under excellent control with no side effects * 5 Severe peripheral neuropathy limit his daily activities * 6 chronic arthritis which limits the patient's mobility. He was advised that he can utilize Aleve if he wanted to * 7 patient is at risk for falls, education was provided to prevent future falls. * RIDGE ROLAND is being seen for a 6 month follow-up of. * Patient is in the office for follow-up for the problems noted below. He came with his . His main problem is neuropathy that limit his physical activity considerably. From the angina standpoint hehas been stable with no recurrent symptoms. He is compliant with medical therapy. There has been noblood work since he was last seen in the office 6 months ago. His review of system essentially unremarkable physical examination was unremarkable for overweight. * Assessment/recommendations: * 1 coronary artery disease status post angioplasty of the ostial right coronary artery June 2019 for 80% stenosis with drug-eluting stent. Currently he is on guideline directed medical therapy for chronic ischemic heart disease and stable * 2 hypertension on medical therapy presently under control, basic metabolic profile is ordered. * 3 overweight. encouragement for weight loss was provided emphasizing low calorie diet * 4 hyperlipidemia on statin therapy. Lipid profile is ordered * 5 Severe peripheral neuropathy limit his daily activities * 6 chronic arthritis which limits the patient's mobility. Reason for Referral Reason 11/29/22 Low back pain Diagnosis 1 Lumbar spondylosis ( M47.816) Referral Organization [facility] Rafael nino Referring Provider First Name Devang Referring Provider Last Name Rafael Referring Provider Specialty Internal Me dicine Referred Organization [facility] Referred Provider Allison Kenyon Referred Address [address] [place], [place],[address] Referred Provider Specialty Neurological Surgery Referral Priority Routine Referral Appointment Date 2022-11-29 General Notes Patient being referr ed for evaluation. He has completed two lumbar fusions and a third procedure for removal of hardware. In the past, he has completed PT and received injections in the pain management clinic w/ minimal benefit. He had requested a referral for a neurosurgical evaluation. He is not necessarily seeking treatment but rather reassurance that his back condition is stable. Aysha Parker 11/16/2022 11:18:53 AM >received today, noted above, sent P2P Aysha Parker 11/30/2022 11:14:02 AM >notes locked, and TE was sent and reviewed. closing referral at this time. Clinical Notes He has pain w/ movem ent , which is aggravated by unsteadiness due to peripheral neuropathy. Additional Source Comments (unrecognized sect ion and content) No Status Records FoundNo Status Records FoundNo Status Records FoundNo Status Records FoundNo Status Records FoundNo Status Records FoundNo Status Records FoundNo Status Records Found INFORMATION SOURCE (unrecogn ized section and content) DATE CREATED AUTHOR 04/23/2018 [facility] DATE CREATED AUTHOR AUTHOR'S ORGANIZ ATION 09/10/2020 [facility] DATE CREATED AUTHOR AUTHOR'S ORGANIZ ATION 12/26/2021 [facility] DATE CREATED AUTHOR AUTHOR'S ORGANIZ ATION 03/11/2023 [facility] DATE CREATED AUTHOR AUTHOR'S ORGANIZ ATION 03/11/2023 [facility] DATE CREATED AUTHOR AUTHOR'S ORGANIZ ATION 03/18/2023 [facility] DATE CREATED AUTHOR AUTHOR'S ORGANIZ ATION 11/18/2023 [facility] DATE CREATED AUTHOR AUTHOR'S ORGANIZ ATION 12/21/2023 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 [place] [address] PCP - General Internal Medicine 11/14/23 REASON FOR VISIT (unrecogniz ed section and content) Reason Comments Follow-up 6 month FOR RECORDS PERTAINING TO PATIENTS WHO ARE OR HAVE BEEN ENROLLED IN A CHEMICAL DEPENDENCY/SUBSTANCEABUSE PROGRAM, SOME INFORMATION MAY BE OMITTED. This clinical summary was aggregated from multiple sources. Caution should be exercised in using it in the provision of clinical care. This summary normalizes information from multiple sources, and as a consequence, information in this document may materially change the coding, format and clinical context of patient data. In addition, data may be omitted in some cases. CLINICAL DECISIONS SHOULD BE BASED ON THE PRIMARY CLINICAL RECORDS. [facility], [facility]. provides no warranty or guarantee of the accuracy or completeness of information in this document.
--- NOTE | 2023-12-24 10:00 | XR_ITS ---
The [address] [address] Patient Name: RIDGE ROLAND MRN: [id number] date: 1945 Sex: M Assigned Patient Location: ER Current Patient Location: ER Accession/Order Number: [id number] Exam Date: 12/24/2023 10:21 Report Date: 12/24/2023 10:59 At the request of: MYKEL GRACIA Procedure: XR chest 1V EXAMINATION: XR chest 1V HISTORY: Confusion COMPARISON: 04/28/2020 TECHNIQUE: AP portable erect FINDINGS: LUNGS: No significant pulmonary parenchymal abnormalities. VASCULATURE: No increased pulmonary vasculature. PLEURA: No pneumothorax, effusion, or pleural thickening. CARDIAC: No cardiomegaly or cardiac silhouette abnormality. MEDIASTINUM: No visible mass or adenopathy. BONES: No fracture or visible bone lesion. OTHER: Negative. XR/XR chest 1V IMPRESSION: No acute cardiopulmonary process Electronically authenticated by: ELIZA THAO Date: 12/24/2023 10:59
--- NOTE | 2023-12-24 10:00 | ECG_ITS ---
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
--- NOTE | 2023-12-24 10:01 | CT_ITS ---
The [address] [address] Patient Name: RIDGE ROLAND MRN: [id number] date: 1945 Sex: M Assigned Patient Location: ER Current Patient Location: ER Accession/Order Number: [id number] Exam Date: 12/24/2023 10:32 Report Date: 12/24/2023 11:04 At the request of: MYKEL GRACIA Procedure: CT head/brain wo con CT head/brain wo con, 12/24/2023 10:32 AM EST INDICATION: Confusion, suicidal ideation COMPARISON: Noncontrast CT of the head 11/08/2020 TECHNIQUE: Axial CT images of the brain from skull base to vertex, including portions of the face and sinuses, were obtained without contrast. Multiplanar reformatted images were generated and reviewed as needed. FINDINGS: No intracranial mass, hydrocephalus, midline shift or acute hemorrhage. No extra-axial collection. Periventricular and deep white matter microvascular ischemic change. Dominguez-white matter differentiation is preserved. Mucous retention cyst right maxillary sinus. Mucosal thickening right sphenoid sinus. The remaining paranasal sinuses and mastoid air cells are clear. Orbits are within normal limits. No acute skull fracture. CT/CT head/brain wo con IMPRESSION: No acute intracranial abnormality. Electronically authenticated by: GEOVANNA FRAGA Date: 12/24/2023 11:04
--- NOTE | 2023-12-24 10:01 | ED_ITS ---
HPI - General Adult General Chief complaint: Altered Mental Status Stated complaint: CONFUSION Time Seen by Provider: 12/24/23 09:49 Source: patient Mode of arrival: walk-in Limitations: no limitations History of Present Illness HPI narrative: [id number] male presents with his for confusion. She states for months or years he has symptoms. She states that he has not been as sharp as he normally is. He forgets how to fix things and he took 2 doses of a nighttime medication a week or 2 ago. He does not seem to have any physical complaints. He agrees that he is not the same as it used to be. No fever vomiting chest pain or abdominal pain. Related Data Allergies Allergy/AdvReac Type Severity Reaction Status Date / Time No Known Drug Allergies Allergy Verified 12/24/23 09:45 Review of Systems ROS Narrative A ten point review of systems is negative except as noted above. PFSH PFSH Social History Smoking status: Former smoker Exam Narrative Exam Narrative: Nurses note and vital signs reviewed and patient is not hypoxic. General: The patient appears well and in no apparent distress. Patient is resting comfortably on cart. Skin: Warm, dry, no pallor noted. There is no rash noted. Head: Normocephalic, atraumatic Eye: Normal conjunctiva, no drainage Ears, Nose, Mouth, and Throat: oral mucosa is moist. Nares patent. Cardiovascular: Regular Rate and Rhythm Respiratory: Patient is in no distress, no accessory muscle use, lungs are clear to auscultation, no wheezing, rales or rhonchi Back: non-tender GI: Soft and nontender Musculoskeletal: The patient has no evidence of calf tenderness, no pitting edema, symmetrical pulses noted bilaterally Neurological: A&O x4, normal speech; upper and lower extremity strength 5 out of 5 and symmetric Psychiatric: Cooperative Constitutional Vital Signs, click to edit/add: Last Vital Signs Temp 98.2 F 12/24/23 09:45 Pulse 72 12/24/23 09:45 Resp 12/24/23 09:45 BP 153/94 H 12/24/23 09:45 Pulse Ox 99 12/24/23 09:45 O2 Del Method Room Air 12/24/23 09:45 Course Vital Signs Vital signs: Vital Signs Temperature 98.2 F 12/24/23 09:45 Pulse Rate 72 12/24/23 09:45 Respiratory Rate 18 12/24/23 09:45 Blood Pressure 153/94 H 12/24/23 09:45 Pulse Oximetry 99 12/24/23 09:45 Oxygen Delivery Method Room Air 12/24/23 09:45 Temperature 98.2 F 12/24/23 09:45 Pulse Rate 72 12/24/23 09:45 Respiratory Rate 18 12/24/23 09:45 Blood Pressure 153/94 H 12/24/23 09:45 Pulse Oximetry 99 12/24/23 09:45 Oxygen Delivery Method Room Air 12/24/23 09:45 Medical Decision Making MDM Narrative Medical decision making narrative: His workup is negative here. I have spoken to Dr. Keyes and follow-up is arranged. Treatment diagnosis and follow-up were discussed with the patient and his . The patient is also on Lyrica and the possibility that this medicine could be causing some side effects was discussed as well. Differential Diagnosis Differential Diagnosis: Dementia, medication side effect, UTI Lab Data Lab results reviewed: Yes I reviewed the patient's lab results Labs: Lab Results 12/24/23 12/24/23 Range/Units 10:13 11:20 WBC 9.5 (4.0-11.0) 10^3/uL RBC 4.90 (4.70-6.10) 10^6/uL Hgb 15.3 (14.0-18.0) g/dL Hct 45.1 (42.0-54.0) % MCV 92.0 (80.0-94.0) fL MCH 31.2 (25.9-34.0) pg MCHC 33.9 (29.9-35.2) g/dL RDW 13.3 (11.0-15.0) % Plt Count 197 (150-450) 10^3/uL MPV 10.7 (9.5-13.5) fL Neut % (Auto) 78.9 H (43.0-75.0) % Lymph % (Auto) 11.5 L (20.5-60.0) % [place] % (Auto) 7.7 (1.7-12.0) % Eos % (Auto) 0.9 (0.9-7.0) % Baso % (Auto) 0.4 (0.2-2.0) % Neut # (Auto) 7.5 H (1.4-6.5) 10^3/uL Lymph # (Auto) 1.1 L (1.2-3.8) 10^3/uL [place] # (Auto) 0.7 (0.3-0.8) 10^3/uL Eos # (Auto) 0.1 (0.0-0.7) 10^3/uL Baso # (Auto) 0.0 (0.0-0.1) 10^3/uL Abs Immat Gran (auto) 0.06 H (0.00-0.03) 10^3/uL Imm/Tot Granulo (auto) 0.6 H (0.0-0.5) % Sodium 138 (136-145) mmol/L Potassium 3.8 (3.5-5.1) mmol/L Chloride 102 (98-107) mmol/L Carbon Dioxide 25.5 (21.0-32.0) mmol/L Anion Gap 14.3 BUN 13.0 (7.0-18.0) mg/dL Creatinine 0.73 (0.70-1.30) mg/dL Est GFR ( Amer) >60 (>=60) Est GFR (Non-Af Amer) >60 (>=60) BUN/Creatinine Ratio 17.8 Glucose 113 H (74-106) mg/dL Calcium 9.1 (8.5-10.1) mg/dL Urine Color Yellow (YELLOW) Urine Clarity Clear (CLEAR) Urine pH 6.5 (5.0-9.0) Ur Specific Advance 1.020 (1.005-1.025) Urine Protein Negative (NEG/TRACE) mg/dL Urine Glucose (UA) Negative (NEGATIVE) mg/dL Urine Ketones Negative (NEGATIVE) mg/dL Urine Occult Blood Negative (NEGATIVE) Urine Nitrite Negative (NEGATIVE) Urine Bilirubin Negative (NEGATIVE) Urine Urobilinogen 0.2 (0.2-1.0) EU/dL Ur Leukocyte Esterase Negative (NEGATIVE) Urine RBC None seen (0-2) #/HPF Urine WBC None seen (NONE SEEN) #/HPF Ur Squamous Epith Cells Few A (NONE/RARE) #/LPF Urine Bacteria None seen (NONE SEEN) #/HPF Urine Mucus Small A (NONE SEEN) Imaging Data CT scan - head: Radiologist's impression: ITS Impressions Chest X-Ray 12/24/23 10:00 IMPRESSION: No acute cardiopulmonary process Electronically authenticated by: ELIZA THAO Date: 12/24/2023 10:[address] 12/24/23 10:01 IMPRESSION: No acute intracranial abnormality. Electronically authenticated by: GEOVANNA FRAGA Date: 12/24/2023 11:04 ECG Data Attestation: I personally reviewed and interpreted this ECG as follows: (EKG on my interpretation shows sinus rhythm with no acute change and a rate of 64) Discharge Plan Discharge Chief Complaint: Altered Mental Status Clinical Impression: Altered mental status Patient Disposition: Home, Self-Care Time of Disposition Decision: 12:26 Condition: Good Mode of 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: Private Vehicle Instructions: Altered Mental Status (ED) Stand Alone Forms: Portal Instructions Referrals: Devang Keyes DO [Primary Care Provider] - 1 week
[2023-12-24 10:24] LABS: Basophils Percent Auto 0.4 % (0.2-2.0); Eosinophils Absolute Auto 0.1 10^3/uL (0.0-0.7); Eosinophils Percent Auto 0.9 % (0.9-7.0); Hematocrit 45.1 % (42.0-54.0); Hemoglobin 15.3 g/dL (14.0-18.0); Immature Granulocytes Abs Auto 0.06 10^3/uL (0.00-0.03); Immature Granulocytes Pct Auto 0.6 % (0.0-0.5); Lymphocytes Absolute Auto 1.1 10^3/uL (1.2-3.8); Lymphocytes Percent Auto 11.5 % (20.5-60.0); Mean Corpuscular HGB Conc 33.9 g/dL (29.9-35.2); Mean Corpuscular Hemoglobin 31.2 pg (25.9-34.0); Mean Platelet Volume 10.7 fL (9.5-13.5); Monocytes Absolute Auto 0.7 10^3/uL (0.3-0.8); Monocytes Percent Auto 7.7 % (1.7-12.0); Neutrophils Absolute Auto 7.5 10^3/uL (1.4-6.5); Neutrophils Percent Auto 78.9 % (43.0-75.0); Platelet Count 197 10^3/uL (150-450); Red Cell Distribution Width 13.3 % (11.0-15.0); White Blood Count 9.5 10^3/uL (4.0-11.0)
[2023-12-24 10:57] LABS: Anion Gap 14.3; BUN Creatinine Ratio 17.8; Calcium 9.1 mg/dL (8.5-10.1); Carbon Dioxide 25.5 mmol/L (21.0-32.0); Chloride 102 mmol/L (98-107); Estimated GFR (African America >60 (>=60); Estimated GFR (Non-African Ame >60 (>=60); Glucose 113 mg/dL (74-106); Potassium 3.8 mmol/L (3.5-5.1); Sodium 138 mmol/L (136-145)
[2023-12-24 11:42] LABS: Bilirubin Urine NEGATIVE (NEGATIVE); Blood Urine NEGATIVE (NEGATIVE); Clarity Urine CLEAR (CLEAR); Color Urine YELLOW (YELLOW); Glucose Urine UA NEGATIVE (NEGATIVE); Ketones Urine NEGATIVE (NEGATIVE); Leukocyte Esterase Urine NEGATIVE (NEGATIVE); Nitrite Urine NEGATIVE (NEGATIVE); Protein Urine NEGATIVE (NEG/TRACE); Urobilinogen Urine 0.2 EU/dL (0.2-1.0); pH Urine 6.5 (5.0-9.0)
[2023-12-24 11:52] LABS: Bacteria Urine NONE SEEN #/HPF (NONE SEEN); Mucus Urine SMALL (NONE SEEN); RBC Urine NONE SEEN #/HPF (0-2); WBC Urine NONE SEEN #/HPF (NONE SEEN)
[2023-12-24 11:53] LABS: Squamous Epithelial Cell Urine FEW #/LPF (NONE/RARE)
== END 2023-12-24 13:08 | disposition home or self-care (01) ==
PROVIDERS: Emergency Provider Emergency Medicine; PCP Internal Medicine
DX: R41.82 Altered mental status, unspecified (principal); Z87.891 Personal history of nicotine dependence
CPT/HCPCS: 36415; 70450; 71045; 80048; 81001; 85025; 93005; 99285

== ENCOUNTER 2024-04-29 08:56 | Outpatient (OUT) | payer MEDICARE, SELFPAY ==
--- OUTSIDE RECORDS SUMMARY | 2024-04-29 09:08 | XMS_ITS | CCD ---
Author Organization [facility] Care Team Providers Care Special Education Curriculum Specialist Name Role Phone SMITA, ANNMARIE H. Unavailable Unavailable DEVANG HALL E Unavailable Unavailable SMITA, ANNMARIE H. Unavailable Unavailable SMITA, ANNMARIE H. Unavailable Unavailable RAFAEL, DEVANG E Unavailable Unavailable RAFAEL, DEVANG E Unavailable Unavailable SMITA, ANNMARIE H. Unavailable Unavailable SMITA, ANNMARIE H. Unavailable Unavailable SMITA, ANNMARIE H. Unavailable Unavailable Unavailable Unavailable Devang Hall Unavailable DEVANG HALL Primary Care Physician [phone] Devang Hall Unavailable LUDWIN LEMON Unavailable Allison Kenyon Unavailable Marisol Connors Referring Unavailable Rafael, Dr. Devang Renteria Primary Care Marisol East Attending Unavailable Marisol Connors Referring Unavailable Ball, Dr. Devnag Renteria Primary Care Marisol East Attending Unavailable ConnorsMarisol muñoz Attending Unavailable Marisol Connors Referring Unavailable Ball, Dr. Devang Renteria Primary Care Juan José Hall, Dr. Devang Renteria Primary Care Rajesh Menezes Attending Unavailable CONNORS, DR MARISOL Gao Admitting Unavailable CONNORS, DR MARISOL Gao Attending Unavailable RAFAEL, DR DE LA CRUZ Primary Care Unavailable CONNORS, DR MARISOL Gao Consulting Unavailable MISC, DR [...] MARISOL Gao Consulting Unavailable CONNORS, DR MARISOL Goa Admitting Unavailable CONNORS, DR MARISOL Gao Attending Unavailable RAFAEL, DR DE LA CRUZ Primary Care Unavailable CONNORS, DR MARISOL Gao Consulting Unavailable Devang Hall DO Primary Care Provider MARISOL CONNORS Attending Unavailable RAFAEL, DEVANG E Primary Care Unavailable JR. PENA GEORGE C Attending Unavaila jena PENA JR., GEORGE C Referring Unavaila ble Sophie Stephenie Admitting Unavailable Barrios, Stephenie Attending Unavailable ALLISON KENYON Referring Unavailable Bib Sanchez Referring Unavailable MD Bib Sanchez Admitting Unavailable Bib Sanchez Attending Unavailable Bert Huang Referring Unavailable Bert Huang Attending Unavailable DO Bert Huang Admitting Unavailabl e Barrios, Stephenie Attending Unavailable BALL, DEVANG Referring Unavailable Sophie, PA-C Stephenie Admitting Unavailabl e Barrios, Stephenie Admitting Unavailable Barrios, Stephenie Attending Unavailable BALL, DEVANG Referring Unavailable Barrios, Stephenie Attending Unavailable BALL, DEVANG Referring Unavailable Sophie, PA-C Stephenie Admitting Unavailabl e Barrios, Stephenie Attending Unavailable BALL, DEVANG Referring Unavailable Barrios, PA-C Stephenie Admitting Unavailabl e Bib Sanchez Attending Unavailable BALL, DEVANG Referring Unavailable Bib Sanchez Admitting Unavailable MD Bib Sanchez Admitting Unavailable Bib Sanchez Attending Unavailable Bib Sanchez Referring Unavailable Bib Sanchez Attending Unavailable MD Bib Sanchez Admitting Unavailable Bib Sanchez Referring Unavailable Bib Sanchez Referring Unavailable MD Bib Sanchez Admitting Unavailable Bib Sanchez Attending Unavailable Barrios, Stephenie Attending Unavailable BALL, DEVANG Referring Unavailable Sophie, PA-C Stephenie Admitting Unavailabl e Barrios, Stephenie Attending Unavailable BALL, DEVANG Referring Unavailable Sophie, PA-C Stephenie Admitting Unavailabl e Bib Sanchez Attending Unavailable RAFAEL, DEVANG Referring Unavailable MD Bib Sanchez Admitting Unavailable RAFAEL, DEVANG Referring Unavailable MD Bib Sanchez Admitting Unavailable Bib Sanchez Attending Unavailable AYAN WOOD-C ALANIS Bustillo Attending UnavailHomero Begum Attending Unavailable Unavailable Unavailable Unavailable Allergies Allergy Classification Reported Allergen(s) Allergy Type Date of Onset Reaction(s) Facility (7 sources) Acetaminophen / HYDROcodone; Translations: [HYDROcodone-Alberto taminophen TABS] Drug Allergy 10-12-20 Hallucinations [facility] (18 sources) oxybutynin; Translations: [oxybutynin] Drug Allergy Hallucinations (finding) [facility] (20 sources) oxyCODONE; Translations: [oxycodone] Drug Allergy 10-12-20 Hallucinations [facility] (1 source) oxyCODONE Drug Allergy 11-05-19 [facility] (1 source) Acetaminophen / HYDROcodone; Translations: [HYDROCODONE-ALBERTO TAMINOPHEN] Drug Allergy 10-12-20 [place] [address] Repository (1 source) DULoxetine; Translations: [duloxetine] Drug Allergy Hallucinations (finding) [facility] (1 source) Sulfonamides (Antibiotic); Translations: [sulfa drugs] Propensity to adverse reactions (disorder) [facility] Repository Medications Current Medications Medication Drug Class(es) Dates Sig (Normalized) Sig (Original) allopurinol 300 mg oral tablet (20 sources) Xanthine Oxidase Inhibitor Start: 04-28-2024 take 300 mg by mouth once daily Allopurinol Active 300 MG PO Daily April 28, 2024 10:35am Start: 03-30-2024 End: 04-28-2024 take 1 tablet by mouth once daily Allopurinol Discontinued 0 .ROUTE .COMPLEX 90 March 30, 2024 3:48pm April 28, 2024 10:40am TAKE 1 TABLET BY MOUTH EVERY DAY Start: 12-27-2023 End: 03-30-2024 take 300 mg by mouth once daily Allopurinol Discontinu ed 300 MG PO Daily December 27, 2023 1:00am March 30, 2024 3:48pm Start: 05-08-2021 take 1 tablet by addie th once daily allopurinol (Zyloprim) 300 mg tablet Take 1 tablet (300 mg) by mouth once daily. 0 05/08/2021 Active Start: 12-02-2020 take 1 tablet by addie th once daily allopurinol 100 mg Tab 100 mg = 1 tab(s), Oral, Daily, Refills(s) 0, Gout pain Start Date: 12/02/20 Status: Ordered amitriptyline hydrochloride 10 mg oral tablet (1 source) Tricyclic Antidepressant Start: 03-14-2024 End: 05-13-2024 take 1 tablet by mouth once daily at bedtime amitriptyline 10 mg Tab 10 mg = 1 tab(s), Oral, Once a day (at bedtime), X 30 day(s), # 30 tab(s), Refills(s) 1, Pharmacy: [facility]/pharmacy #[id number], 193, cm, 03/14/24 9:55:00 EDT, Height/Length Dosing, 104.5, kg, 03/14/24 9:55:00 EDT, Weight Dosing Start Date: 03/14/24 Stop Date: 05/13/24 Status: Ordered amLODIPine 5 mg oral tablet (20 sources) Dihydropyridine Calcium Channel Pratik Start: 02-26-2024 End: 02-27-2024 take 5 mg by mouth twice daily Amlodipine Active 5 MG PO Twice daily 60 February 27, 2024 6:59am Start: 11-29-2018 take 10 mg by mouth once daily amlodipine 10 mg, Oral, Daily, High blood pressure Start Date: 11/29/18 Status: Ordered Start: 07-02-2017 End: 02-26-2024 take 5 mg by mouth once daily Amlodipine Discontinued 5 MG PO Daily July 02, 2017 12:00am February 26, 2024 2:59pm amLODIPine Besyl ate Active Ascorbic Acid (9 sources) Vitamin C Start: 04-28-2024 take 1 g by mouth once daily Ascorbic Acid (Vitamin C) Active 1 GM PO Daily April 28, 2024 12:00am take 1 tablet by mouth once yosef y ascorbic acid (Vitamin C) 1,000 mg tablet [...] mouth once daily Aspirin Active 81 MG PO Daily June 16, 2019 12:00am Start: 07-02-2017 End: 03-04-2019 take 1 tablet by mouth once daily Aspirin (Manuel Low Dose Aspirin) 81 mg Tablet,Delayed Release (Dr/Ec) Discontinued 1 TAB PO Daily July 02, 2017 12:00am March 04, 2019 8:08am aspirin 81 mg ch ewable tablet Chew 1 tablet (81 mg) once daily. 0 Active Baby Aspirin Act michelle atorvastatin 40 mg oral tablet (20 sources) HMG-CoA Reductase Inhibitor Start: 06-16-2019 End: 11-14-2023 take 1 tablet by mouth once daily Atorvastatin (Lipitor) 40 mg tablet Active 40 MG PO Daily June 16, 2019 12:00am Calcium (20 sources) Phosphate Binder, Calcium Start: [...] for 30 day(s) Active Calcium Carbonate-Vitamin D3 (4 sources) Vitamin D Start: 07-02-2017 take 1 tablet by mouth once daily Calcium Carbonate-Vitamin D3 Active 1 TAB Oral Daily July 02, 2017 10:49am Start: 07-02-2017 Calcium Carbon ate-Vitamin D3 (Calcium 500 + D) 500 mg(1,250mg) -400 unit Tablet Active 1 TAB PO Daily July 02, 2017 12:00am cetirizine hydrochloride 10 mg oral tablet (9 sources) Histamine-1 Receptor Antagonist Start: 11-01-2019 take 1 tablet by mouth every twelve hours ciprofloxacin 500 mg oral tablet (2 sources) Quinolone Antimicrobial Start: 03-23-2022 take 1 tablet by mouth twice daily Cipro 500 mg Tab 500 mg = 1 tab(s), Oral, BID, Start medication the day prior to the procedure, # 14 tab(s), Refills(s) 0, Pharmacy: [facility]/pharmacy #[id number], 193, cm, 03/14/22 10:49:00 EDT, Height/Length Dosing, 114.5, kg, 03/14/22 10:49:00 EDT, Weight Dosing Start Date: 03/23/22 Status: Ordered DULoxetine 30 mg delayed release oral capsule (2 sources) Serotonin and Norepinephrine Reuptake Inhibitor Start: 01-25-2024 End: 03-25-2024 take 1 capsule by mouth twice daily Cymbalta 30 mg oral delayed release capsule 30 mg = 1 cap(s), Oral, BID, X 30 day(s), # 60 cap(s), Refills(s) 1, Pharmacy: [facility]/pharmacy #[id number], 193, cm, 01/25/24 13:38:00 EDT, Height/Length Dosing, 102.4, kg, 01/25/24 13:38:00 EDT, Weight Dosing Start Date: 01/25/24 Stop Date: 03/25/24 Status: Ordered erythromycin 0.005 mg/mg ophthalmic ointment (1 source) Macrolide, Macrolide Antimicrobial Start: 02-07-2021 erythromycin ophthalmic 0.5% ointment 0.5 in, Eye-Both, QID, 3.5 gram, Refill(s) 1, [facility]/pharmacy #[id number], 192, cm, 02/03/21 8:57:00 EDT, Height/Length Dosing, 116, kg, 02/03/21 8:57:00 EDT, Weight Dosing Start Date: 02/07/21 Status: Ordered etodolac 500 mg oral tablet (7 sources) Nonsteroidal Anti-inflammatory Drug Start: 04-08-2024 take 1 tablet by mouth every twelve hours Etodolac Active 0 .ROUTE .COMPLEX April 08, 2024 1:26pm TAKE 1 TABLET BY MOUTH EVERY 12 HOURS FOR 30 DAYS Start: 01-25-2024 take 1 tablet by addie twice daily etodolac 500 mg Tab 500 mg = 1 tab(s), Oral, BID, # 60 tab(s), Refills(s) 0 Start Date: 01/25/24 Status: Ordered Start: 12-31-2023 End: 04-08-2024 take 500 mg by mouth every twelve hours Etodolac Discontinued 500 MG PO Every 12 hours 60 30 January 10, 2024 3:02pm April 08, 2024 1:27pm famotidine 20 mg oral tablet (9 sources) Histamine-2 Receptor Antagonist Start: 11-01-2019 take 1 tablet by mouth every twelve hours Fish Oils (9 sources) hydroCHLOROthiazide 25 mg oral tablet (20 sources) Thiazide Diuretic Start: 01-03-2024 take 1 tablet by mouth once daily Hydrochlorothiazide Active 0 .ROUTE .COMPLEX 90 January 03, 2024 8:12pm TAKE 1 TABLET BY MOUTH EVERY DAY Start: 07-02-2017 End: 01-03-2024 take 25 mg by mouth once daily Hydrochlorothiazide Discontinued 25 MG PO daily July 02, 2017 12:00am January 03, 2024 8:12pm hydroCHLOROthiaz lexis Active losartan potassium 25 mg oral tablet (4 sources) Angiotensin 2 Receptor Pratik Start: 03-17-2024 End: 04-28-2024 take 25 mg by mouth once daily Losartan Active 25 MG PO Daily April 28, 2024 10:11am lutein 25 mg / zeaxanthin 5 mg oral capsule (3 sources) Start: 04-28-2024 take 1 capsule by mouth once daily Lutein-Zeaxanth in Active 1 CAP PO Daily April 28, 2024 12:00am take 1 capsule by mouth once royal ly LUTEIN-ZEAXANTHIN ORAL Take 1 capsule by mouth [...] day(s), # 90 tab(s), Refills(s) 3, Pharmacy: [facility] ([facility]), 193, cm, 12/27/21 9:50:00 EST, [...] Marisol Connors MD Start : 26-Sep-2022 Active [place] 3-Smf-Ggb-Fish Oil (1 source) Start: 07-02-2017 take 1200 mg by mouth once daily [place] 7-Aml-Bhw-Fish Oil Active 1200 MG Oral Daily July 02, 2017 10:56am Osteo Bi-Flex Joint Shield (9 sources) Potassium (13 sources) Start: 04-28-2024 take 20 mg by mouth once daily Potassium Active 20 MG PO Daily April 28, 2024 12:00am Start: 07-02-2017 End: 03-04-2019 take 99 mg by mouth once daily Potassium Discontinued 99 MG PO daily July 02, 2017 12:00am March 04, 2019 8:10am Potassium Active pregabalin 25 mg oral capsule (10 sources) Start: 11-09-2023 take 1 capsule by mouth twice daily pregabalin 25 mg Cap 25 mg = 1 cap(s), Oral, BID, # 60 cap(s), Refills(s) 2, Pharmacy: [facility]/pharmacy #[id number], 193, cm, 11/09/23 11:29:00 EST, Height/Length Dosing, 110, kg, 11/09/23 11:29:00 EST, Weight Dosing Start Date: 11/09/23 Status: Ordered Start: 04-18-2023 End: 05-18-2023 take 1 capsule by mouth twice daily pregabalin 25 mg Cap 25 mg = 1 cap(s), Oral, BID, X 30 day(s), # 60 cap(s), Refills(s) 0, Pharmacy: [facility]/pharmacy #[id number], 193, cm, 03/19/23 8:54:00 EDT, Height/Length Dosing, 108.9, kg, 03/19/23 8:54:00 EDT, Weight Dosing Start Date: 04/18/23 Stop Date: 05/18/23 Status: Ordered Start: 03-19-2023 take 1 capsule by mo [facility] twice daily pregabalin 25 mg Cap 25 mg = 1 cap(s), Oral, BID, # 60 cap(s), Refills(s) 0, Pharmacy: [facility]/pharmacy #[id number], 193, cm, 03/19/23 8:54:00 EDT, Height/Length Dosing, 108.9, kg, 03/19/23 8:54:00 EDT, Weight Dosing Start Date: 03/19/23 Status: Ordered take 1 capsule by [facility] once daily pregabalin (Lyrica) 25 mg capsule Take 1 capsule (25 mg) by mouth once daily. 0 Active sildenafil 50 mg oral tablet (14 sources) Phosphodiesterase 5 Inhibitor Start: 09-07-2022 Viagra 50 mg Tab See Instructions, 1-2 tab(s) po 1 hr before sexual acitivity. do not exceed 2 tabs in 24 hrs., # 15 tab(s), Refills(s) 3, Pharmacy: [facility]/pharmacy #[id number], 193, cm, 08/31/22 9:11:00 EDT, Height/Length Dosing, 114.5, kg, 08/31/22 9:11:00 EDT, Weight Dosing Start Date: 09/07/22 Status: Ordered traMADol hydrochloride 50 mg oral tablet (1 source) Opioid Agonist Start: 02-07-2021 take 1 tablet by mouth every six hours as needed for pain traMADOL 50 mg Tab 50 mg = 1 tab(s), Oral, q6hr, PRN Pain, # 20 tab(s), Refills(s) 0, Pharmacy: [facility]/pharmacy #[id number], 192, cm, 02/03/21 8:57:00 EDT, Height/Length Dosing, 116, kg, 02/03/21 8:57:00 EDT, Weight Dosing Start Date: 02/07/21 Status: Ordered Vitamin B Complex (1 source) Vitamin B Comple x - as directed Orally Active vitamin b12 1 mg oral capsule (8 sources) Vitamin B12 Start: 04-28-2024 take 1000 ug by mouth once daily Cyanocobalamin (Vitamin B-12) Active 1000 MCG PO Daily April 28, 2024 12:00am take 1 tablet by mouth once yosef y cyanocobalamin, vitamin B-12, (Vitamin B-12) 1,000 mcg tablet extended release Take 1 tablet (1,000 mcg) by mouth once daily. 0 Active Vitamin B12 1000 mcg Tab (17 sources) Start: 11-01-2020 take 1 tablet by mouth once daily Vitamin B12 1000 mcg Tab 1,000 mcg = 1 tab(s), Oral, Daily, Refills(s) 0, Prophylaxis Start Date: 11/01/20 Status: Ordered Vitamin C 1000 mg oral tablet (17 sources) Start: 11-01-2020 take 1 tablet by mouth once daily Vitamin C 1000 mg oral tablet 1,000 mg = 1 tab(s), Oral, Daily, Refills(s) 0, Prophylaxis Start Date: 11/01/20 Status: Ordered Completed/Discontinued Medications Medication Drug Class(es) Dates Sig (Normalized) Sig (Original) acetaminophen 325 mg / oxyCODONE hydrochloride 5 mg oral tablet (3 sources) Opioid Agonist Start: 07-24-2017 End: 03-04-2019 take 1 tablet by mouth every six hours Oxycodone-Acetamin ophen Discontinued 1 TAB PO Q6H 40 July 24, 2017 12:00am March 04, 2019 8:09am cephalexin 500 mg oral capsule (3 sources) Cephalosporin Antibacterial Start: 07-24-2017 End: 07-31-2017 take 1 capsule by mouth three times daily Cephalexin (Keflex) 500 mg capsule Discontinued 500 MG PO Three times daily 25 05July 24, 2017 12:00am July 31, 2017 12:02am space evenly during waking hours chondroitin sulfates 200 mg / glucosamine hydrochloride 250 mg oral tablet (4 sources) Start: 07-02-2017 End: 12-27-2023 take 2 tablets by mouth once daily Glucosamine-Chondr oitin (Osteo Bi-Flex) 250-200 mg Tablet Discontinued 2 TAB PO Daily July 02, 2017 12:00am December 27, 2023 3:30pm clopidogrel 75 mg oral tablet (20 sources) [id number] Platelet Inhibitor Start: 06-16-2019 End: 12-27-2023 take 1 tablet by mouth once daily Clopidogrel (Plavix) 75 mg tablet Discontinued 75 MG PO Daily 30 June 16, 2019 12:00am December 27, 2023 3:30pm cyclobenzaprine hydrochloride 10 mg oral tablet (3 sources) Muscle Relaxant Start: 07-24-2017 End: 03-04-2019 take 10 mg by mouth every eight hours Cyclobenzaprine Discontinued 10 MG PO Every 8 hours 40 July 24, 2017 12:00am March 04, 2019 8:09am docusate sodium 50 mg / sennosides, shelter 8.6 mg oral tablet (3 sources) Start: 07-24-2017 End: 03-04-2019 take 2 tablets by mouth twice daily Sennosides-Docusate Sodium (Dok Plus) 8.6-50 mg Tablet Discontinued 2 TAB PO Twice daily 40 July 24, 2017 12:00am March 04, 2019 8:10am ibuprofen 800 mg oral tablet (12 sources) Nonsteroidal Anti-inflammatory Drug Start: 03-04-2019 End: 06-16-2019 take 800 mg by mouth three times daily Ibuprofen Discontinued 800 MG PO Three times daily March 04, 2019 12:00am June 16, 2019 10:03am lutein 6 mg oral tablet (20 sources) Start: 03-04-2019 End: 04-28-2024 take 6 mg by mouth once daily Lutein Discontinued 6 MG PO Daily March 04, 2019 12:00am April 28, 2024 10:37am Start: 11-29-2018 lutein 5MG/25M G, Oral, Daily, Prophylaxis Start Date: 11/29/18 Status: Ordered Lutein Active naproxen sodium 220 mg oral tablet (6 sources) Nonsteroidal Anti-inflammatory Drug Start: 07-02-2017 End: 03-04-2019 take 1 tablet by mouth once daily at bedtime Naproxen Sodium (Aleve) 220 mg Tablet Discontinued 220 MG PO Daily at bedtime July 02, 2017 12:00am March 04, 2019 8:09am Start: 07-02-2017 End: 07-24-2017 take 2 tablets by mouth once daily in the morning Naproxen Sodium (Aleve) 220 mg Tablet Discontinued 440 MG PO Every morning July 02, 2017 12:00am July 24, 2017 8:15am [place] 9-Bpr-Vgw-Fish Oil (Fi sh Oil) 1,000 mg (120 mg-180 mg) Capsule (3 sources) Start: 07-02-2017 End: 12-27-2023 [place] 3-Slk-Qeq-Fish Oil (Fi sh Oil) 1,000 mg (120 mg-180 mg) Capsule Discontinued 1200 MG PO Daily July 02, 2017 12:00am December 27, 2023 3:30pm Start: 07-02-2017 End: 12-27-2023 [place] 7-Xrz-Olv-Fish Oil (Fi sh Oil) 1,000 mg (120 mg-180 mg) Capsule Discontinued 1200 MG PO Daily July 01, 2017 11:00pm December 27, 2023 2:30pm microencapsulated potassium chloride 20 meq extended release [...] one po daily for 30 days Active pravastatin sodium 80 mg oral tablet (4 sources) HMG-CoA Reductase Inhibitor Start: 07-02-2017 End: 12-27-2023 take 80 mg by mouth once daily at bedtime Pravastatin Discontinued 80 MG PO Daily at bedtime July 02, 2017 12:00am December 27, 2023 3:30pm solifenacin succinate 10 mg oral tablet (20 sources) Cholinergic Muscarinic Antagonist Start: 11-28-2022 End: 01-07-2024 take 10 mg by mouth once daily Solifenacin Discontinued 10 MG PO Daily December 27, 2023 1:00am December 31, 2023 11:31am Triamcinolone (18 sources) Corticosteroid Start: 11-01-2019 Start: 11-01-2019 Kenalog -40 mg Oct, 60 mg Start: 08-09-2019 Start: 08-09-2019 Kenalog -40 mg Aug, 40 mg 24 hr trospium chloride 60 mg extended release oral capsule (17 sources) Cholinergic Muscarinic Antagonist Start: 03-04-2019 End: 12-27-2023 take 60 mg by mouth once daily Trospium Discontinued 60 MG PO Daily March 04, 2019 12:00am December 27, 2023 3:30pm take 1 tablet by addie th every twenty-four hours Trospium Chloride 20 MG 1 tablet at bedtime on an empty stomach Orally Once a day Active Viteyes Complete CAPS (6 sources) Viteyes Complete CAPS TAKE 1 CAPSULE Daily Quantity: 0 Refills: 0 Ordered: 28-Mar-2022 DO Active Problems Active Problems Problem Classification Problem Date Documented Date Episodic/Chronic Abdominal hernia (17 sources) Right inguinal hernia 11-29-2018 Episodic Coronary atherosclerosis and other heart disease (20 sources) Coronary arteriosclerosis; Translations: [Recurrent coronary arteriosclerosis after percutaneous transluminal coronary angioplasty] Onset: 04-07-2022 Chronic Coronary atherosclerosis and other heart disease (12 sources) Past history of procedure; Translations: [Percutaneous transluminal coronary angioplasty status] Onset: 10-12-2023 11-14-2023 Episodic Diabetes mellitus without complication (9 sources) Impaired fasting glucose; Translations: [Impaired fasting glycemia] Episodic Disorders of lipid metabolism (20 sources) [...] Chronic Inflammatory conditions of male genital organs (17 sources) Chronic prostatitis 05-18-2020 Chronic Malaise and fatigue (5 sources) Physical deconditioning; Translations: [Other malaise] Onset: 01-10-2023 Episodic Other connective tissue disease (1 source) Presence of right artificial knee joint; Translations: [Presence of right artificial knee joint] Onset: 04-25-2022 Chronic Other diseases of bladder and urethra (17 sources) Urethral stricture 12-08-2019 Episodic Other diseases [...] Onset: 11-27-2022 Chronic Other nervous system disorders (4 sources) Neuropathy; Translations: [Polyneuropathy, unspecified] 10-17-2023 Chronic Other nervous system disorders (9 sources) Chronic pain; Translations: [Other chronic pain] Chronic Other nervous system disorders (1 source) Other chronic pain Chronic Other nervous system disorders (8 sources) Polyneuropathy; Translations: [Polyneuropathy, unspecified] 12-27-2023 Chronic Other nervous system disorders (3 sources) Polyneuropathy, unspecified; Translations: [Unspecified hereditary and idiopathic peripheral neuropathy] Chronic Other nervous system disorders (2 sources) [...] Chronic Other nutritional; endocrine; and metabolic disorders (17 sources) Body mass index 30+ - obesity [...] Episodic Other nutritional; endocrine; and metabolic disorders (3 sources) Abnormal weight loss; Translations: [Loss of weight] Episodic Other nutritional; endocrine; and metabolic disorders (2 sources) Abnormal intentional weight loss; Translations: [Abnormal weight loss] 12-27-2023 Episodic Other nutritional; endocrine; and metabolic disorders (3 sources) Overweight; Translations: [Overweight] 12-27-2023 Episodic Other screening for suspected conditions (not mental disorders or infectious disease) (20 sources) Echocardiogram abnormal; Translations: [Thallium stress test abnormal] Onset: 10-12-2023 11-26-2019 Episodic Residual codes; unclassified (3 sources) Memory impairment; Translations: [Other amnesia] 12-29-2023 Episodic Residual codes; unclassified (2 sources) Other amnesia; Translations: [Memory loss] 12-31-2023 Episodic Spondylosis; intervertebral disc disorders; other back problems (20 sources) Spondylosis without myelopathy or radiculopathy, lumbar region; Translations: [Other intervertebral disc displacement, lumbar region] Onset: 04-10-2018 Chronic Spondylosis; intervertebral disc disorders; other back problems (4 sources) Degenerative lumbar spinal stenosis; Translations: [Spinal stenosis, lumbar region without neurogenic claudication] 12-13-2023 Episodic Spondylosis; intervertebral disc disorders; other back problems (2 sources) Spondylosis; intervertebral disc disorders; other back problems; Translations: [L 4-5 SPONDYLOSIS, L 5- S1 HNP (HERNIATED NUCLEUS PULPOSUS)/ RADICULOPATHY] Onset: 04-10-2018 Thyroid disorders (7 sources) Cyst of thyroid; Translations: [Nontoxic single thyroid nodule] Chronic Unclassified (17 sources) Drug therapy finding 12-08-2019 Unclassified (17 sources) Finding of sensation of bladder 11-15-2021 Unclassified (13 sources) Patient encounter status 01-10-2023 Past or [...] Onset: 04-25-2022 Episodic Other aftercare (1 source) 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 of 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; Translations: [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 of aspirin] Onset: 04-25-2022 Episodic Other aftercare (1 source) 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 of antithrombotics/ant iplatelets; Translations: [senior living (current) use of antithrombotics/ant iplatelets] Onset: 04-25-2022 [...] Test Name Value Interpretation Reference Range Facility Consent for Treatmenton 03-05 Consent for Treatment [id number] IFF Normal [facility] Consultation Noteon 03-14-20 Consultation Note Patient: KEILA ROLAND Age: 78 years Sex: Male : 1945 Associated Diagnoses: None Author: Stephenie Barrios PA-C Subjective Chief complaint 03/14/2024 9:47 EDT low back pain . Patient is a 77-year-old male. He presents today for a follow-up after trialing Cymbalta. Unfortunate, this caused hallucinations. He is not able to tolerate codeine, tramadol, oxycodone, hydrocodone, Lyrica, gabapentin. He has had side effects with all these medications. Previous injections have not helped. This has included sacroiliac joint injection as well as lumbar RFA. He continues to have lower back pain and some leg pain. He also has right knee pain. He rates it a 2?6/10. Worse with walking. Worse with being active. He wonders what his other options are. He states that he cannot live like this and this pain is very bothersome to him. Health Status Allergies: Allergic Reactions (Selected) Severity Not Documented Cymbalta- Hallucinations. Oxybutynin- Hallucinations. OxyCODONE- Visual hallucinations., Allergies (3) Active Severity Reaction oxyCODONE Visual hallucinations oxybutynin Hallucinations Cymbalta Hallucinations Current medications: (Selected) Prescriptions Prescribed Cymbalta 30 mg oral delayed release capsule: 30 mg = 1 cap(s), Oral, BID, X 30 day(s), # 60 cap(s), Refills(s) 1, Pharmacy: [facility]/pharmacy #[id number], 193, cm, 01/25/24 13:38:00 EDT, Height/Length Dosing, 102.4, kg, 01/25/24 13:38:00 EDT, Weight Dosing Viagra 50 mg Tab: See Instructions, 1-2 tab(s) po 1 hr before sexual acitivity. do not exceed 2 tabs in 24 hrs., # 15 tab(s), Refills(s) 3, [id number] 193, cm, 08/31/22 9:11:00 EDT, Height/Length Dosing, 114.5, kg, 08/31/22 9:11:00 EDT, Weight Dosing... amitriptyline 10 mg Tab: 10 mg = 1 tab(s), Oral, Once a day (at bedtime), X 30 day(s), # 30 tab(s), Refills(s) 1, [id number] 193, cm, 03/14/24 9:55:00 EDT, Height/Length Dosing, 104.5, kg, 03/14/24 9:55:00 EDT, Weight Dosing pregabalin 25 mg Cap: 25 mg = 1 cap(s), Oral, BID, # 60 cap(s), Refills(s) 2, [id number] 193, cm, 11/09/23 11:29:00 EST, Height/Length [...] Oral, Daily, Refills(s) 0, Gout pain amlodipine: 10 mg, Oral, Daily, High blood pressure aspirin 81 mg oral tablet: 81 mg = 1 tab(s), Oral, Daily, # 30 tab(s), Refills(s) 0 etodolac 500 mg Tab: 500 mg = 1 tab(s), Oral, BID, # 60 tab(s), Refills(s) 0 hydrochlorothiazide: 25 mg, Oral, Daily, High blood pressure Problem list: All Problems Hypercholesterolemia / SNOMED CT 22257217 / Confirmed Hernia, inguinal, right / SNOMED CT 190191674 / Confirmed BPH with urinary obstruction / SNOMED CT 0120324636 / Confirmed Elevated PSA / SNOMED CT 2246524917 / Confirmed Impotence / SNOMED CT 0020263113 / Confirmed Urinary frequency / SNOMED CT 069425450 / Confirmed Nocturia / SNOMED CT 040865158 / Confirmed Weak urinary stream / SNOMED CT 265837574 / Confirmed Gross hematuria / SNOMED CT 962967675 / Confirmed Anticoagulated / SNOMED CT 126357304 / Confirmed Urge incontinence / SNOMED CT 018148741 / Confirmed Chronic prostatitis / SNOMED CT 30351135 / Confirmed Dysuria / SNOMED CT 40378689 / Confirmed Urinary retention / SNOMED CT 198813460 / Confirmed BMI 31.0-31.9,adult / SNOMED CT 530762165 / Confirmed Incomplete bladder emptying / SNOMED CT 439003250 / Confirmed Post-void dribbling / SNOMED CT 645670296 / Confirmed Incontinence without sensory awareness / SNOMED CT 9628335419 / Confirmed At risk for falls / SNOMED CT 215169888 / Possible ED (erectile dysfunction) / SNOMED CT 5165573015 / Confirmed Leaking of urine / SNOMED CT 2809332398 / Confirmed Urinary incontinence / SNOMED CT 4998527470 / Confirmed Prostate cancer screening / SNOMED CT 530542176 / Confirmed Resolved: Hypertension / SNOMED CT 4236328416 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 Ambulating with a walker Eye: Normal conjunctiva. HENT: Normocephalic, Normal hearing. Cardiovascular: No edema. Musculoskeletal Normal range of motion. Normal strength. 5/5 strength Integumentary: Warm, Dry, [place]. Neurologic: Alert, Oriented. Psy (more content not included)... Normal [facility] Comment on above: Result Comment: Elec tronically Signed By: Sophie SHIPMAN, Stephenie\.br\Date and Time Signed: 03/14/24 10:17 EDT Office/Clinic Note-Physician on 03-14-2024 Office/Clinic Note-Physician [id number]#1.00T IFF Normal [facility] Patient Correspondenceon Patient Correspondence [id number]#1.00T IFF Normal [facility] Patient Correspondence [id number]#1.00T IFF Normal [facility] Patient History Officeon Patient History Office [id number]#1.00T IFF Normal [facility] Consent for Treatmenton 01-04 Consent for Treatment [id number]#1.00 TIFF Normal [facility] Consultation Noteon 01-25-20 Consultation Note Patient: KEILA ROLAND Age: 78 years Sex: Male : 1945 Associated Diagnoses: None Author: Stephenie Barrios PA-C Subjective Chief complaint 01/25/2024 13:26 EDT low back . Patient is a 77-year-old male. He presents today for a follow-up after undergoing bilateral sacroiliac joint injections that gave him 90% relief but only for 4 hours. He still has lower back pain that he rates a 6/10. Worse with certain maneuvers but not always the same maneuvers. It is worse when he gets out of bed in the morning but if he gets out of bed in the middle the night to go to the bathroom it does not hurt. He also underwent previous bilateral L3-4 and L4-5 facet RFA. This was done on 10/08/2023. Patient never got the relief he was looking for. He did not tolerate gabapentin. He did not tolerate Lyrica. It caused constipation. Per his he did not tolerate tramadol, Tylenol with codeine, or oxycodone before either. It caused intolerable side effects that she does not want to have happened to him again. He wonders if there are any other options to give him the relief he is on board. He has difficulty with ambulation because of this. He has difficulty doing things throughout the day because of this. Health Status Allergies: Allergic Reactions (Selected) Severity Not Documented Oxybutynin- Hallucinations. OxyCODONE- Visual hallucinations., Allergies (2) Active Severity Reaction oxyCODONE Visual hallucinations oxybutynin Hallucinations Current medications: (Selected) Prescriptions Prescribed Cymbalta 30 mg oral delayed release capsule: 30 mg = 1 cap(s), Oral, BID, X 30 day(s), # 60 cap(s), Refills(s) 1, [id number] 193, cm, 01/25/24 13:38:00 EDT, Height/Length Dosing, 102.4, kg, 01/25/24 13:38:00 EDT, Weight Dosing Viagra 50 mg Tab: See Instructions, 1-2 tab(s) po 1 hr before sexual acitivity. do not exceed 2 tabs in 24 hrs., # 15 tab(s), Refills(s) 3, Pharmacy: [facility]/pharmacy #[id number], 193, cm, 08/31/22 9:11:00 EDT, Height/Length Dosing, 114.5, kg, 08/31/22 9:11:00 EDT, Weight Dosing... pregabalin 25 mg Cap: 25 mg = 1 cap(s), Oral, BID, # 60 cap(s), Refills(s) 2, [id number] 193, cm, 11/09/23 11:29:00 EST, Height/Length [...] Oral, Daily, # 30 tab(s), Refills(s) 0 etodolac 500 mg Tab: 500 mg = 1 tab(s), Oral, BID, # 60 tab(s), Refills(s) 0 hydrochlorothiazide: 25 mg, Oral, Daily, High blood pressure Problem list: All Problems Hypercholesterolemia / SNOMED CT 50352178 / Confirmed Hernia, inguinal, right / SNOMED CT 495875938 / Confirmed BPH with urinary obstruction / SNOMED CT 9521427222 / Confirmed Elevated PSA / SNOMED CT 0675427724 / Confirmed Impotence / SNOMED CT 4765898939 / Confirmed Urinary frequency / SNOMED CT 351995267 / Confirmed Nocturia / SNOMED CT 504695915 / Confirmed Weak urinary stream / SNOMED CT 619311773 / Confirmed Gross hematuria / SNOMED CT 387384041 / Confirmed Anticoagulated / SNOMED CT 364909725 / Confirmed Urge incontinence / SNOMED CT 917729041 / Confirmed Chronic prostatitis / SNOMED CT 79618227 / Confirmed Dysuria / SNOMED CT 48102524 / Confirmed Urinary retention / SNOMED CT 878716229 / Confirmed BMI 31.0-31.9,adult / SNOMED CT 306173591 / Confirmed Incomplete bladder emptying / SNOMED CT 440193107 / Confirmed Post-void dribbling / SNOMED CT 222600295 / Confirmed Incontinence without sensory awareness / SNOMED CT 3725555186 / Confirmed At risk for falls / SNOMED CT 286923092 / Possible ED (erectile dysfunction) / SNOMED CT 9763117671 / Confirmed Leaking of urine / SNOMED CT 4578928167 / Confirmed Urinary incontinence / SNOMED CT 1952229725 / Confirmed Prostate cancer screening / SNOMED CT 402125474 / Confirmed Resolved: Hypertension / SNOMED CT 1535406590 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 Ambulating with a walker Eye: Normal conjunctiva. HENT: Normocephalic, Normal hearing. Cardiovascular: No edema. Musculoskeletal Normal range of motion. Normal strength. 5/5 stre (more content not included)... Normal [facility] Comment on above: Result Comment: Elec tronically Signed By: Sophie SHIPMAN, Stephenie\.br\Date and Time Signed: 01/25/24 13:48 EDT Office/Clinic Note-Physician on 01-25-2024 Office/Clinic Note-Physician [id number]#1.00 TIFF Normal [facility] Patient Correspondenceon Patient Correspondence [id number]#1.00 TIFF Normal [facility] Patient Correspondence [id number]#1.00 TIFF Normal [facility] Patient Correspondence [id number]#1.00 TIFF Normal [facility] Patient History Officeon Patient History Office [id number]#1.00 TIFF Normal [facility] Consent for Procedure/Surger yon 01-09-2024 Consent for Procedure/Surgery [id number]#1.00T IFF Normal [facility] Consent for Treatmenton Consent for Treatment [id number]#1.00T IFF Normal [facility] Discharge Instructionson Discharge Instructions [id number]#1.00T IFF Normal [facility] IntraOperative Documentson 0 01-09-2024 IntraOperative Documents [id number]#1.00T IFF Normal [facility] Main OR Intraoperative Recor don 01-09-2024 Main OR Intraoperative Record IntraOp Document Type FTPM Summary Primary Physician: Bert Huang DO Finalized Date/Time: 01/09/24 11:31:11 Pt. Name: SHENG ROLAND[place]ia [place]/Sex: 1945 Male Med Rec #: [id number] Physician: Bert Huang DO Financial #: [id number] Pt. Type: P Room/Bed: / Admit/Disch: 01/09/24 10:24:34 - Institution: Case Times FTPM Entry 1 Patient Times In Room 01/09/24 11:25:00 Out Room 01/09/24 11:31:00 Procedure Times Start 01/09/24 11:28:00 Stop 01/09/24 11:30:00 Anesthesia Times Last Modified By: Savannah Garrett RN 01/09/24 11:31:02 Case Attendance FTPM Entry 1 Entry 2 Entry 3 Case Attendee Bert Huang DO, RN, Savannah Kelly RN, Tomasa Davidson Role Performed Surgeon - Primary [place] [place] - Primary Scrub - Primary Time In 01/09/24 11:25:00 01/09/24 11:25:00 01/09/24 11:25:00 Time Out 01/09/24 11:31:00 01/09/24 11:31:00 01/09/24 11:31:00 Procedure SACROILIAC JOINT SACROILIAC JOINT SACROILIAC JOINT INJECTION(Bilateral) INJECTION(Bilateral) INJECTION(Bilateral) Comments Last Modified By: Gerry JENNINGS, Savannah Garrett RN, Savannah Tsai RN 01/09/24 11:31:02 01/09/24 11:31:02 01/09/24 11:31:02 Entry 4 Case Attendee Scott Craig Role Performed Sales Operations Coordinator Time In 01/09/24 11:25:00 Time Out 01/09/24 11:31:00 Procedure SACROILIAC JOINT INJECTION(Bilateral) Comments Last Modified By: Savannah Garrett RN 01/09/24 11:31:02 Perioperative Protocols FTPM Pre-Care Text: Implements protective measures prior to operative or invasive procedure, confirms identity before the operative or invasive procedure, verifies operative procedure, surgical site, and laterality Entry 1 Procedure(s) SACROILIAC JOINT Patient Identity Birthday, ID Band INJECTION(Bilateral) Verified (select at Check, Patient least 2): Participation Consents / H and P HandP, Surgery/Procedure Operative Site Present Verified Consent Marking Verified Surgical Site Yes Laterality Verified Yes Verified Procedure Verified Yes Correct Patient Yes Position Verified Availability Equipment, Medication, Prep Dry Yes Verified (If X-ray Applicable) PreOp Antibiotic No Time Out Savannah Garrett RN, Roderick RN, Jerry Harvey DO, Bradford A., Scott Craig Time Out Complete 01/09/24 11:25:00 Outcomes Met? Yes Last Modified By: Savannah Garrett RN 01/09/24 11:25:54 Post-Care Text: The patient is free from signs and symptoms of injury caused by extraneous objects Allergy Information FTPM Pre-Care Text: Verifies allergies Entry 1 Allergies Reviewed? Yes Allergies Reviewed Self/Patient With Outcomes Met? Yes Last Modified By: Savannah Garrett RN 01/09/24 10:46:06 Post-Care Text: The patient received appropriate medication(s) safely administered during the perioperative period Surgical Procedures FTPM Entry 1 Procedure Description Procedure SACROILIAC JOINT Modifiers Bilateral INJECTION Surgeon Description [facility] Primary Procedure Yes Primary Surgeon Bert Huang DO Start 01/09/24 11:28:00 Stop 01/09/24 11:30:00 Anesthesia Type None Surgical Service Pain Management Wound Class 1 - Clean Last Modified By: Savannah Garrett RN 01/09/24 11:31:04 General Case Data FTPM Pre-Care Text: Classifies surgical wound, implements aseptic technique, initiates traffic control Entry 1 Case Information OR Pain Proc Room Case Level Level 2 Wound Class 1 - Clean Specialty Pain Management Preop Diagnosis M46.1 Postop Same As Preop Yes Postop Diagnosis M46.1 Outcomes Met? Yes Last Modified By: Savannah Garrett RN 01/09/24 11:26:04 Post-Care Text: The patient is free from signs and symptoms of infection Skin Assessment (Pre Procedure) FTPM Pre-Care Text: Implements protective measures to prevent skin/ tissue injury due to thermal or mechanical sources Evaluates for signs and symptoms of physical injury to skin and tissue Entry 1 Skin Integrity Intact, [place], Warm, and Skin Abnormality No Dry Outcomes Met? Yes Last Modified By: Savannah Garrett RN 01/09/24 10:46:14 Post-Care Text: The patient is free from signs and symptoms of injury caused by extraneous objects Patient Positioning FTPM Pre-Care Text: Identifies physical alterations that require additional precautions for procedure-specific positioning, verifies presence of prosthetics or corrective devices, positions the patient, evaluates the patient for signs and symptoms of injury as a result of positioning Entry 1 Procedure SACROILIAC JOINT Body Position Prone INJECTION(Bilateral) Feet Uncrossed? Yes Left Arm Position Resting at Side Right Arm Position Resting at Side Left Leg Position Extended Right Leg Position Extended Positioning Device Pillow Under Head Large, Safety Strap, Pillow Large Under Knees Press Points Checked Yes By Savannah Garrett RN Outcomes Met? Y (more content not included)... Normal [facility] Main OR Preoperative Recordo n 01-09-2024 Main OR Preoperative Record Holding Area Document Type FTPM Summary Primary Physician: Bert Huang DO Finalized Date/Time: 01/09/24 11:01:07 Pt. Name: RIDGE ROLAND/Sex: 1945 Male Med Rec #: [id number] Physician: Bert Huang DO Financial #: [id number] Pt. Type: P Room/Bed: / Admit/Disch: 01/09/24 10:24:34 - Institution: Case Times Holding FTPM Pre-Care Text: Verifies consent for planned procedure, identifies individual values and wishes concerning care, includes family members in perioperative teaching Secures patient's records' belongings, and valuables, maintains patient's dignity and privacy, and maintains patient confidentiality Entry 1 In Holding 01/09/24 10:58:00 Outcomes Met? Yes Last Modified By: Anupama Huggins RN 01/09/24 10:58:57 Post-Care Text: The patient participates in decisions affecting his or her perioperative plan of care The patient's right to privacy is maintained Surgery Checklist FTPM Entry 1 Patient Birthday, ID Band Procedure History and Physical, Identification: Check, Patient Verification: Surgical Consent, With Participation Patient NPO after Midnight: No Date/Time: 01/09/24 10:59:00 Results Reviewed coffee at 8 Personal Items: Cataract Lens Implant, Comments: Glasses, Jewelry Personal Items watch, x2 rings, Complaints of Pain: Yes Comment: bilateral cataract sx Pain Comment: 04/14 low back pain Operative Site Yes Marking: Marked By: Dr huang Location: bilateral [facility] Availability Equipment, X-Ray Verified: Does Patient Smoke No Patient states Yes Comment - Adult -juice postop adult Supervision supervision available Case Cancelled in No Holding Area see comments below for reason Last Modified By: Anupama Huggins RN 01/09/24 11:01:04 Finalized By: Anupama Huggins RN Document Signatures Signed By: Anupama Huggins RN 01/09/24 11:01 Normal [facility] Automated epithelial cells c ount in urine sediment (number/area)on 12-24-2023 Epithelial cells Auto (Urine sed) [#/Area] FEW #/LPF NONE/RARE [facility] Automated leukocytes count i n urine sediment (number/area)on 12-24-2023 WBC Auto (Urine sed) [#/Area] NONE SEEN #/HPF 0-2 [facility] Automated urine specific gra vity by refractometryon 12-24-2023 Specific gravity Refractometry automated (U) [Rel density] 1.020 1.005-1.025 [facility] Basophils Auto (Bld) [#/Vol] on 12-24-2023 Basophils (Bld) [#/Vol] 0.0 10 3/uL 0.0-0.1 [facility] Basophils/100 WBC Auto (Bld) on 12-24-2023 Basophils/100 WBC (Bld) 0.4 % 0.2-2.0 [facility] Bilirubin Auto test strip (U ) [Mass/Vol]on 12-24-2023 Bilirubin (U) [Mass/Vol] Negative NEGATIVE [facility] Color Auto (U)on 12-24-2023 Color (U) YELLOW YELLOW [facility] Eosinophils/100 WBC Auto (Bl d)on 12-24-2023 Eosinophils/100 WBC (Bld) 0.9 % 0.9-7.0 [facility] Erythrocyte distribution wid th Auto (RBC) [Ratio]on 12-24-2023 Erythrocyte distribution width (RBC) [Ratio] 13.3 % 11.0-15.0 [facility] Estimated glomerular filtrat ion rate (GFR) non- Americanon 12-24-2023 GFR/1.73 sq M.predicted among non-blacks MDRD (S/P/Bld) [Vol rate/Area] mL/min/{1.73_m2} >=60 [facility] Hematocrit Auto (Bld) [Volum e fraction]on 12-24-2023 Hematocrit (Bld) [Volume fraction] 45.1 % 42.0-54.0 [facility] Hemoglobin [Mass/volume] in Bloodon 12-24-2023 Hemoglobin (Bld) [Mass/Vol] 15.3 g/dL 14.0-18.0 [facility] Ketones Auto test strip (U) [Mass/Vol]on 12-24-2023 Ketones (U) [Mass/Vol] Negative NEGATIVE [facility] Laboratory - Chemistry and C hemistry - challengeon 12-24-2023 Calcium [Mass/Vol] 9.1 mg/dL 8.5-10.1 [facility] Chloride [Moles/Vol] 102 mmol/L 98-107 [facility] CO2 [Moles/Vol] 25.5 mmol/L 21.0-32.0 [place] Creatinine [Mass/Vol] 0.73 mg/dL 0.70-1.30 [facility] GFR/1.73 sq M.predicted MDRD (S/P/Bld) [Vol rate/Area] mL/min/{1.73_m2} >=60 [facility] Glucose [Mass/Vol] 113 mg/dL 74-106 [facility] Potassium [Moles/Vol] 3.8 mmol/L 3.5-5.1 [facility] Sodium [Moles/Vol] 138 mmol/L 136-145 [facility] Urea nitrogen [Mass/Vol] 13.0 mg/dL 7.0-18.0 [facility] Urea nitrogen/Creatinine [Mass ratio] 17.8 mg/mg [facility] Laboratory - Hematology and Cell countson 12-24-2023 Immature granulocytes/100 WBC (Bld) 0.6 % 0.0-0.5 [facility] Leukocytes [#/volume] correc yina for nucleated erythrocytes in Blood by Automated counon 12-24-2023 WBC corrected for nucl RBC Auto (Bld) [#/Vol] 9.5 10 3/uL 4.0-11.0 [facility] Lymphocytes Auto (Bld) [#/Vo l]on 12-24-2023 Lymphocytes (Bld) [#/Vol] 1.1 10 3/uL 1.2-3.8 [facility] Lymphocytes/100 WBC Auto (Bl d)on 12-24-2023 Lymphocytes/100 WBC (Bld) 11.5 % 20.5-60.0 [facility] MCH Auto (RBC) [Entitic mass ]on 12-24-2023 MCH (RBC) [Entitic mass] 31.2 pg 25.9-34.0 [facility] MCHC Auto (RBC) [Mass/Vol]on 12-24-2023 MCHC (RBC) [Mass/Vol] 33.9 g/dL 29.9-35.2 [facility] MCV Auto (RBC) [Entitic vol] on 12-24-2023 MCV (RBC) [Entitic vol] 92.0 fL 80.0-94.0 [facility] Monocytes Auto (Bld) [#/Vol] on 12-24-2023 Monocytes (Bld) [#/Vol] 0.7 10 3/uL 0.3-0.8 [facility] Monocytes/100 WBC Auto (Bld) on 12-24-2023 Monocytes/100 WBC (Bld) 7.7 % 1.7-12.0 [facility] Mucus LM Ql (Urine sed)on Mucus Ql (Urine sed) SMALL NONE SEEN [facility] Neutrophils Auto (Bld) [#/Vo l]on 12-24-2023 Neutrophils (Bld) [#/Vol] 7.5 10 3/uL 1.4-6.5 [facility] Neutrophils/100 WBC Auto (Bl d)on 12-24-2023 Neutrophils/100 WBC (Bld) 78.9 % 43.0-75.0 [facility] No Panel Informationon 12-24 Eosinophils # (Auto) 0.1 10 3/uL 0.0-0.7 [facility] Immature Granulocyte # (Auto) 0.06 10 3/uL 0.00-0.03 [facility] Platelet mean volume Auto (B ld) [Entitic vol]on 12-24-2023 Platelet mean volume (Bld) [Entitic vol] 10.7 fL 9.5-13.5 [facility] Platelets Auto (Bld) [#/Vol] on 12-24-2023 Platelets (Bld) [#/Vol] 197 10 3/uL 150-450 [facility] Protein Auto test strip (U) [Mass/Vol]on 12-24-2023 Protein (U) [Mass/Vol] Negative NEG/TRACE [facility] RBC Auto (Bld) [#/Vol]on RBC (Bld) [#/Vol] 4.90 10 6/uL 4.70-6.10 [facility] Serum or plasma anion gap de terminationon 12-24-2023 Anion gap [Moles/Vol] 14.3 mmol/L [facility] Specific gravity Auto test s trip (U) [Rel density]on 12-24-2023 Specific gravity (U) [Rel density] CLEAR CLEAR [facility] Urine bacteria detection by automated methodon 12-24-2023 Bacteria Auto Ql (U) NONE SEEN #/HPF NONE SEEN [facility] Urine glucose measurement by test strip (mass/volume)on 12-24-2023 Glucose Test strip (U) [Mass/Vol] Negative NEGATIVE [facility] Urine hemoglobin detection b y automated test stripon 12-24-2023 Hemoglobin Auto test strip Ql (U) Negative NEGATIVE [facility] Urine nitrite detection by a utomated test stripon 12-24-2023 Nitrite Auto test strip Ql (U) Negative NEGATIVE [facility] Urine sediment leukocyte cou nt by microscopy (number/high power field)on 12-24-2023 WBC LM.HPF (Urine sed) [#/Area] NONE SEEN #/HPF NONE SEEN [facility] Urobilinogen Auto test strip (U) [Mass/Vol]on 12-24-2023 Urobilinogen Qn (U) 0.2 {Kathia'U}/dL 0.2-1.0 [facility] pH Auto test strip (U)on pH (U) 6.5 [pH] 5.0-9.0 [facility] Patient Correspondenceon Patient Correspondence [id number]#1.00T IFF Normal [facility] Insurance Correspondence Off iceon 12-17-2023 Insurance Correspondence Office [id number]#2.00 TIFF Normal [facility] Patient Educationon 12-14-19 Patient Education Urology [...] stimulation). ? For women, using a medical investigator to prevent urine leaks. This is a [...] urine. ? (more content not included)... Normal [facility] Urology Office/Clinic Noteon 12-14-2023 Urology Office/Clinic [...] Works well. Follow-up With When Contact Information Homero XAVIER MD, URL Only if needed [facility] [address], [place] [phone]- [phone] Additional Instructions: Patient Education Urinary Incontinence I, [...] fluoroscopic guidance (05/01/ (more content not included)... Normal [facility] Comment on above: Result Comment: Elec tronically Signed By: Homero XAVIER MD\.br\Date and Time Signed: 12/14/23 11:03 EST\.br\Electronically Co-Signed By: Lina Perkins\.br\Date and Time Co-Signed: 12/14/23 11:01 EST Consent for Treatmenton Consent for Treatment [id number]#1.00T IFF Normal [facility] Consultation Noteon 12-10-19 Consultation Note Patient: KEILA [...] day(s), # 30 tab(s), Refills(s) 6, Pharmacy: [facility]/pharmacy #[id number], 193, cm, 05/29/23 8:59:00 EDT, Height/Length Dosing, 108.9, kg, 03/19/23 8:54:00 EDT, Weight Dosing Viagra 50 mg Tab: See Instructions, 1-2 tab(s) po 1 hr before sexual acitivity. do not exceed 2 tabs in 24 hrs., # 15 tab(s), Refills(s) 3, [id number] 193, cm, 08/31/22 9:11:00 EDT, Height/Length Dosing, 114.5, kg, 08/31/22 9:11:00 EDT, Weight Dosing... pregabalin 25 mg Cap: 25 mg = 1 cap(s), Oral, BID, # 60 cap(s), Refills(s) 2, [id number] 193, cm, 11/09/23 11:29:00 EST, Height/Length [...] list: All Problems Hypercholesterolemia / SNOMED CT 50202858 / Confirmed Hernia, inguinal, right / SNOMED CT 860711209 / Confirmed BPH with urinary obstruction / SNOMED CT 9419533989 / Confirmed Elevated PSA / SNOMED CT 2107884972 / Confirmed Impotence / SNOMED CT 7780440000 / Confirmed Urinary frequency / SNOMED CT 391309959 / Confirmed Nocturia / SNOMED CT 449719930 / Confirmed Weak urinary stream / SNOMED CT 712816454 / Confirmed Gross hematuria / SNOMED CT 915490271 / Confirmed Anticoagulated / SNOMED CT 889692151 / Confirmed Urge incontinence / SNOMED CT 492361536 / Confirmed Chronic prostatitis / SNOMED CT 82636025 / Confirmed Dysuria / SNOMED CT 93321717 / Confirmed Urinary retention / SNOMED CT 449986688 / Confirmed BMI 31.0-31.9,adult / SNOMED CT 886256675 / Confirmed Incomplete bladder emptying / SNOMED CT 489286414 / Confirmed Post-void dribbling / SNOMED CT 605234456 / Confirmed Incontinence without sensory awareness / SNOMED CT 8807909767 / Confirmed At risk for falls / SNOMED CT 639551864 / Possible ED (erectile dysfunction) / SNOMED CT 7028800037 / Confirmed Leaking of urine / SNOMED CT 9734325166 / Confirmed Urinary incontinence / SNOMED CT 0209459923 / Confirmed Prostate cancer screening / SNOMED CT 412195798 / Confirmed Resolved: Hypertension / SNOMED CT 4585274430 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 Normal [facility] Comment on above: Result Comment: Elec tronically Signed By: Stephenie Barrios PA-C\.br\Date and Time Signed: 12/10/23 12:53 EST\.br\Electronically Co-Signed By: Bert Huang DO.br\Date and Time Co-Signed: 12/11/23 09:21 EST Office/Clinic Note-Physician on 12-10-2023 Office/Clinic Note-Physician [id number]#1.00T IFF Normal [facility] Patient Correspondenceon Patient Correspondence [id number]#1.00T IFF Normal [facility] Patient Correspondence [id number]#1.00T IFF Normal [facility] Patient History Officeon Patient History Office [id number]#1.00T IFF Normal [facility] Consent for Treatmenton Consent for Treatment [id number]#1.00 TIFF Normal [facility] Consultation Noteon 11-09-19 Consultation Note Patient: KEILA ROLAND Age: 78 [...] day(s), # 30 tab(s), Refills(s) 6, [id number] 193, cm, 05/29/23 8:59:00 EDT, Height/Length Dosing, 108.9, kg, 03/19/23 8:54:00 EDT, Weight Dosing Viagra 50 mg Tab: See Instructions, 1-2 tab(s) po 1 hr before sexual acitivity. do not exceed 2 tabs in 24 hrs., # 15 tab(s), Refills(s) 3, Pharmacy: [facility]/pharmacy #[id number], 193, cm, 08/31/22 9:11:00 EDT, Height/Length Dosing, 114.5, kg, 08/31/22 9:11:00 EDT, Weight Dosing... pregabalin 25 mg Cap: 25 mg = 1 cap(s), Oral, BID, # 60 cap(s), Refills(s) 2, [id number] 193, cm, 11/09/23 11:29:00 EST, Height/Length [...] list: All Problems Hypercholesterolemia / SNOMED CT 37923574 / Confirmed Hernia, inguinal, right / SNOMED CT 468907780 / Confirmed BPH with urinary obstruction / SNOMED CT 8512035701 / Confirmed Elevated PSA / SNOMED CT 1215360629 / Confirmed Impotence / SNOMED CT 2735753019 / Confirmed Urinary frequency / SNOMED CT 566042435 / Confirmed Nocturia / SNOMED CT 843121282 / Confirmed Weak urinary stream / SNOMED CT 376717169 / Confirmed Gross hematuria / SNOMED CT 975735917 / Confirmed Anticoagulated / SNOMED CT 921176485 / Confirmed Urge incontinence / SNOMED CT 704168706 / Confirmed Chronic prostatitis / SNOMED CT 69001709 / Confirmed Dysuria / SNOMED CT 54199115 / Confirmed Urinary retention / SNOMED CT 002642497 / Confirmed BMI 31.0-31.9,adult / SNOMED CT 750456343 / Confirmed Incomplete bladder emptying / SNOMED CT 151109017 / Confirmed Post-void dribbling / SNOMED CT 103343228 / Confirmed Incontinence without sensory awareness / SNOMED CT 7554644187 / Confirmed At risk for falls / SNOMED CT 054702031 / Possible ED (erectile dysfunction) / SNOMED CT 6952029160 / Confirmed Leaking of urine / SNOMED CT 8984684535 / Confirmed Urinary incontinence / SNOMED CT 3376001248 / Confirmed Prostate cancer screening / SNOMED CT 612348163 / Confirmed Resolved: Hypertension / SNOMED CT 3638502537 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 Injection sites well-healed Neurologic: Alert, Oriented. Psychiatric: Cooperative, Appropriate mood & affect. Impression and Plan Patient is a 78-year-old male with a past medical history significant for postlaminectomy syndrome, chronic pain, and lumbar spondylosis (more content not included)... Normal [facility] Comment on above: Result Comment: Elec tronically Signed By: Sophie SHIPMAN, Stephenie\.br\Date and Time Signed: 11/09/23 11:45 EST Legal Correspondence Officeo n 11-09-2023 Legal Correspondence Office [id number]#1.00 TIFF Normal [facility] Office/Clinic Note-Physician on 11-09-2023 Office/Clinic Note-Physician [id number]#1.00 TIFF Normal [facility] Patient Correspondenceon Patient Correspondence [id number]#1.00 TIFF Normal [facility] Patient Correspondence [id number]#1.00 TIFF Normal [facility] Patient Correspondence [id number]#1.00 TIFF Normal [facility] Patient Correspondence [id number]#1.00 TIFF Normal [facility] Patient History Officeon Patient History Office [id number]#1.00 TIFF Normal [facility] Consent for Procedure/Surger yon 10-08-2023 Consent for Procedure/Surgery [id number]#1.00 TIFF Normal [facility] Consent for Treatmenton Consent for Treatment [id number]#1.00 TIFF Normal [facility] Discharge Instructionson Discharge Instructions [id number]#1.00 TIFF Normal [facility] IntraOperative Documentson 1 12-09-2022 IntraOperative Documents [id number]#1.00 TIFF Normal [facility] Main OR Intraoperative Recor don 10-08-2023 Main OR Intraoperative Record IntraOp Document Type FTPM Summary Primary Physician: Bib Sanchez MD Finalized Date/Time: 10/08/23 08:08:45 Pt. Name: RIDGE ROLAND John SortoB./Sex: 1945 Male Med Rec #: [id number] Physician: Bib Sanchez MD Financial #: [id number] Pt. Type: P Room/Bed: / Admit/Disch: 10/08/23 06:48:57 - Institution: Case Times FTPM Entry 1 Patient Times In Room 10/08/23 07:54:00 Out Room 10/08/23 08:09:00 Procedure Times Start 10/08/23 07:57:00 Stop 10/08/23 08:08:00 Anesthesia Times Last Modified By: Tomasa Kelly RN 10/08/23 08:08:29 Case Attendance FTPM Entry 1 Entry 2 Entry 3 Case Attendee Fabi WALTERS, Bib Kelly RN, Tomasa Garrett RN, Savannah Ceballos Role Performed Surgeon - Primary [employer] [place] - Primary Scrub - Primary Time In 10/08/23 07:54:00 10/08/23 07:54:00 10/08/23 07:54:00 Time Out 10/08/23 08:09:00 10/08/23 08:09:00 10/08/23 08:09:00 Procedure LUMBAR RADIO FREQUENCY LUMBAR RADIO FREQUENCY LUMBAR RADIO FREQUENCY ABLATION(Bilateral) ABLATION(Bilateral) ABLATION(Bilateral) Comments Last Modified By: Robin EJNNINGS, Tomasa Kelly RN, Tomasa Alexander RN 10/08/23 08:08:31 10/08/23 08:08:31 10/08/23 08:08:31 Entry 4 Case Attendee Soni CHAUDHARY)Adry Role Performed Sales Operations Coordinator Time In 10/08/23 07:54:00 Time Out 10/08/23 [...] Given Participants Gerry JENNINGS, Fabi Roldan MD, Bib Jackson, Soni MCNULTY(R), Adry Time Out Complete 10/08/23 07:54:00 Outcomes [...] and tissue Entry 1 Skin Integrity Intact, [place], Warm, and Skin Abnormality No Dry Outcomes [...] By Neto (more content not included)... Normal [facility] Main OR Preoperative Recordo n 10-08-2023 Main OR Preoperative Record Holding Area Document Type FTPM Summary Primary Physician: Bib Sanchez MD Finalized Date/Time: 10/08/23 07:19:53 Pt. Name: RIDGE ROLAND D.O.B./Sex: 1945 Male Med Rec #: [id number] Physician: Bib Sanchez MD Financial #: [id number] Pt. Type: P Room/Bed: / Admit/Disch: 10/08/23 06:48:57 - Institution: Case Times Holding FTPM Pre-Care Text: Verifies consent for planned procedure, identifies individual values and wishes concerning care, includes family members in perioperative teaching Secures patient's records' belongings, and valuables, maintains patient's dignity and privacy, and maintains patient confidentiality Entry 1 In Holding 10/08/23 07:17:00 Outcomes Met? Yes Last Modified By: Sneha Beal RN 10/08/23 07:18:03 Post-Care Text: The patient participates [...] By: Sneha Beal RN 10/08/23 07:19 Normal [facility] Operative Reporton 3 Operative Report Patient: [...] side with the identical technique and medications. [place] were removed and bandages applied. The patient [...] EST Respiratory Rate 15 br/min . Normal [facility] Comment on above: Result Comment: Elec tronically Signed By: Fabi WALTERS, Bib aJckson\.br\Date and Time Signed: 10/08/23 08:08 EST Patient Correspondenceon Patient Correspondence [id number]#1.00T IFF [facility] Insurance Correspondence Off iceon 09-21-2023 Insurance Correspondence Office [id number]#2.[address] [facility] Consent for Treatmenton 09-05 Consent for Treatment [id number]#1.[address] [facility] Consultation Noteon 09-14-20 Consultation Note Patient: KEILA [...] day(s), # 30 tab(s), Refills(s) 6, Pharmacy: [facility]/pharmacy #[id number], 193, cm, 05/29/23 8:59:00 EDT, Height/Length Dosing, 108.9, kg, 03/19/23 8:54:00 EDT, Weight Dosing Viagra 50 mg Tab: See Instructions, 1-2 tab(s) po 1 hr before sexual acitivity. do not exceed 2 tabs in 24 hrs., # 15 tab(s), Refills(s) 3, Pharmacy: [facility]/pharmacy #[id number], 193, cm, 08/31/22 9:11:00 EDT, [...] list: All Problems Hypercholesterolemia / SNOMED CT 25752745 / Confirmed Hernia, inguinal, right / SNOMED CT 844596655 / Confirmed BPH with urinary obstruction / SNOMED CT 7361094697 / Confirmed Elevated PSA / SNOMED CT 1041395334 / Confirmed Impotence / SNOMED CT 8457090365 / Confirmed Urinary frequency / SNOMED CT 592066727 / Confirmed Nocturia / SNOMED CT 865661264 / Confirmed Weak urinary stream / SNOMED CT 730489331 / Confirmed Gross hematuria / SNOMED CT 655060041 / Confirmed Anticoagulated / SNOMED CT 778123589 / Confirmed Urge incontinence / SNOMED CT 049339023 / Confirmed Chronic prostatitis / SNOMED CT 71958279 / Confirmed Dysuria / SNOMED CT 78668371 / Confirmed Urinary retention / SNOMED CT 276508155 / Confirmed BMI 31.0-31.9,adult / SNOMED CT 527944687 / Confirmed Incomplete bladder emptying / SNOMED CT 614958449 / Confirmed Post-void dribbling / SNOMED CT 452644569 / Confirmed Incontinence without sensory awareness / SNOMED CT 1429690982 / Confirmed At risk for falls / SNOMED CT 675347638 / Possible ED (erectile dysfunction) / SNOMED CT 5965864495 / Confirmed Leaking of urine / SNOMED CT 3650252822 / Confirmed Urinary incontinence / SNOMED CT 4471333072 / Confirmed Prostate cancer screening / SNOMED CT 540221621 / Confirmed Resolved: Hypertension / SNOMED CT 1404021600 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 Injection site well-healed Neurologic: Alert, Oriented. Psychiatric: Cooperative, Appropriate mood & affect. Results Review Lumbar MRI report once again reviewed Impression and Plan Patient is a 77-year-old male with a past medical history significant cannot for lumbar spondylosis, postlaminectomy syndrome, and chronic low back pain. Patient underwent his second bilateral L3-4 and L4-5 facet med (more content not included)... Normal [facility] Comment on above: Result Comment: Elec tronically Signed By: Stephenie Barrios PA-C\.br\Date and Time Signed: 09/14/23 08:14 EST\.br\Electronically Co-Signed By: Bib Sanchez MD\.br\Date and Time Co-Signed: 09/24/23 12:00 EST Office/Clinic Note-Physician on 09-14-2023 Office/Clinic Note-Physician [id number]#1.00 TIFF Normal [facility] Patient Correspondenceon Patient Correspondence [id number]#1.00 TIFF Normal [facility] Patient Correspondence [id number]#1.00 TIFF Normal [facility] Patient Correspondence [id number]#1.00 TIFF Normal [facility] Patient History Officeon Patient History Office [id number]#1.00 TIFF Normal [facility] Consent for Procedure/Surger yon 09-04-2023 Consent for Procedure/Surgery [id number]#1.00 TIFF Normal [facility] Consent for Treatmenton 10-3 Consent for Treatment [id number]#1.00 TIFF Normal [facility] Discharge Instructionson Discharge Instructions [id number]#1.00 TIFF Normal [facility] IntraOperative Documentson 1 IntraOperative Documents [id number]#1.00 TIFF Normal [facility] Main OR Intraoperative Recor don 09-04-2023 Main OR Intraoperative Record IntraOp Document Type FTPM Summary Primary Physician: Bib Sanchez MD Finalized Date/Time: 09/04/23 10:36:25 Pt. Name: ASUNCION RIDGE John Sands/Sex: 1945 Male Med Rec #: [id number] Physician: Bib Sanchez MD Financial #: [id number] Pt. Type: P Room/Bed: / Admit/Disch: 09/04/23 09:32:42 - Institution: Case Times FTPM Entry 1 Patient Times In Room 09/04/23 10:30:00 Out Room 09/04/23 10:37:00 Procedure Times Start 09/04/23 10:33:00 Stop 09/04/23 10:36:00 Anesthesia Times Last Modified By: Robin JENNINGS, Tomasa Davidson 09/04/23 10:36:09 Case Attendance FTPM Entry 1 Entry 2 Entry 3 Case Attendee Fabi WALTERS, Bib Kelly RN, Tomasa Garrett RN, [facility] Role Performed Surgeon - Primary Ce[employer] [place] - Primary Scrub - Primary Time In 09/04/23 10:30:00 09/04/23 10:30:00 09/04/23 10:30:00 Time Out 09/04/23 10:37:00 09/04/23 10:37:00 09/04/23 10:37:00 Procedure MEDIAL BRANCH MEDIAL BRANCH MEDIAL BRANCH BLOCK(Bilateral) BLOCK(Bilateral) BLOCK(Bilateral) Comments Last Modified By: Tomasa Kelly RN, RN, Kayla J Roderick RN, Kayla J 09/04/23 10:36:10 09/04/23 10:36:10 09/04/23 10:36:10 Entry 4 Case Attendee Scott Craig Role Performed Sales Operations Coordinator Time In 09/04/23 10:30:00 Time Out 09/04/23 [...] and tissue Entry 1 Skin Integrity Intact, [place], Warm, and Skin Abnormality No Dry Outcomes [...] 10:31:36 Post-Car (more content not included)... Normal [facility] Main OR Preoperative Recordo n 09-04-2023 Main OR Preoperative Record Holding Area Document Type FTPM Summary Primary Physician: Bib Sanchez MD Finalized Date/Time: 09/04/23 10:17:31 Pt. Name: RIDGE ROLAND /Sex: 1945 Male Med Rec #: [id number] Physician: Bib Sanchez MD Financial #: [id number] Pt. Type: P Room/Bed: / Admit/Disch: 09/04/23 [...] Yes Comment: bilateral cataract surgery Pain Comment: 6/10 lower back Operative Site Yes Marking: Marked [...] By: Sharee Dominguez RN 09/04/23 10:17 Normal [facility] Operative Reporton 3 Operative Report Patient: [...] EDT Respiratory Rate 16 br/min . Normal [facility] Comment on above: Result Comment: Elec tronically Signed By: Bib Sanchez MD\.br\Date and Time Signed: 09/04/23 10:36 EDT Consent for Treatmenton 08-06 Consent for Treatment [id number]#1.00T IFF Normal [facility] Consultation Noteon 08-28-20 Consultation Note Patient: [...] day(s), # 30 tab(s), Refills(s) 6, Pharmacy: [facility]/pharmacy #[id number], 193, cm, 05/29/23 8:59:00 EDT, Height/Length Dosing, 108.9, kg, 03/19/23 8:54:00 EDT, Weight Dosing Viagra 50 mg Tab: See Instructions, 1-2 tab(s) po 1 hr before sexual acitivity. do not exceed 2 tabs in 24 hrs., # 15 tab(s), Refills(s) 3, Pharmacy: [facility]/pharmacy #[id number], 193, cm, 08/31/22 9:11:00 EDT, [...] list: All Problems Anticoagulated / SNOMED CT 159091786 / Confirmed At risk for falls / SNOMED CT 830870590 / Possible BMI 31.0-31.9,adult / SNOMED CT 436756142 / Confirmed BPH with urinary obstruction / SNOMED CT 3077147553 / Confirmed Chronic prostatitis / SNOMED CT 95156658 / Confirmed Dysuria / SNOMED CT 50595441 / Confirmed ED (erectile dysfunction) / SNOMED CT 4041947480 / Confirmed Elevated PSA / SNOMED CT 8622547779 / Confirmed Gross hematuria / SNOMED CT 823555050 / Confirmed Hernia, inguinal, right / SNOMED CT 424855937 / Confirmed Hypercholesterolemia / SNOMED CT 52709953 / Confirmed Impotence / SNOMED CT 3511248460 / Confirmed Incomplete bladder emptying / SNOMED CT 138850191 / Confirmed Incontinence without sensory awareness / SNOMED CT 6147230246 / Confirmed Leaking of urine / SNOMED CT 0514987958 / Confirmed Nocturia / SNOMED CT 679659829 / Confirmed Post-void dribbling / SNOMED CT 433925258 / Confirmed Prostate cancer screening / SNOMED CT 927970487 / Confirmed Urge incontinence / SNOMED CT 453595170 / Confirmed Urinary frequency / SNOMED CT 183745595 / Confirmed Urinary incontinence / SNOMED CT 5011545075 / Confirmed Urinary retention / SNOMED CT 057576659 / Confirmed Weak urinary stream / SNOMED CT 813311903 / Confirmed Objective Vital Signs 08/28/2023 7:51 [...] Plan to follow-up (more content not included)... [facility] Comment on above: Result Comment: Elec tronically Signed By: Fabi WALTERS, Bib Jackson\.br\Date and Time Signed: 08/28/23 08:26 EDT Insurance Correspondence Off iceon 08-28-2023 Insurance Correspondence Office [id number]#1.00T IFF [facility] Office/Clinic Note-Physician on 08-28-2023 Office/Clinic Note-Physician [id number]#1.00 TIFF Normal [facility] Patient Correspondenceon Patient Correspondence [id number]#1.[address] [facility] Patient Correspondence [id number]#1.[address] [facility] Patient Correspondence [id number]#1.[address] [facility] Patient Correspondence [id number]#1.[address] [facility] Patient History Officeon Patient History Office [id number]#1.[address] [facility] Consent for Procedure/Surger yon 08-07-2023 Consent for Procedure/Surgery [id number]#1.00 CD:127 [facility] Consent for Treatmenton Consent for Treatment [id number]#1.00 CD:127 [facility] Discharge Instructionson Discharge Instructions [id number]#1.00 CD:127 [facility] IntraOperative Documentson IntraOperative Documents [id number]#1.00 CD:127 [facility] Main OR Intraoperative Recor don 08-07-2023 Main OR Intraoperative Record IntraOp Document Type FTPM Summary Primary Physician: Bib Sanchez MD Finalized Date/Time: 08/07/23 13:22:25 Pt. Name: RIDGE ROLAND D.O.B./Sex: 1945 Male Med Rec #: [id number] Physician: Bib Sanchez MD Financial #: [id number] Pt. Type: P Room/Bed: / Admit/Disch: 08/07/23 [...] Savannah Lin Role Performed Surgeon - Primary Ceo [place] - Primary Scrub - Primary Time In 08/07/23 13:16:00 08/07/23 13:16:00 08/07/23 13:16:00 Time Out 08/07/23 13:23:00 08/07/23 13:23:00 08/07/23 13:23:00 Procedure MEDIAL BRANCH MEDIAL BRANCH MEDIAL BRANCH BLOCK(Bilateral) BLOCK(Bilateral) BLOCK(Bilateral) Comments Last Modified By: Tomasa Kelly RN, RN, Tomasa Alexander RN 08/07/23 13:22:18 08/07/23 13:22:18 08/07/23 13:22:18 Entry 4 Case Attendee Donna Hall Role Performed Sales Operations Coordinator Time In 08/07/23 13:16:00 Time Out 08/07/23 [...] Given Participants Gerry JENNINGS, Fabi Roldan MD, Isabel Bateman Amy Time Out Complete 08/07/23 13:16:00 Outcomes [...] and tissue Entry 1 Skin Integrity Intact, [place], Warm, and Skin Abnormality No Dry Outcomes Met? Yes Last Modified By: Tomasa eKlly RN 08/07/23 13:15:44 Post-Care Text: The patient [...] Text: The (more content not included)... Normal [facility] Main OR Preoperative Recordo n 08-07-2023 Main OR Preoperative Record Holding Area Document Type FTPM Summary Primary Physician: Bib Sanchez MD Finalized Date/Time: 08/07/23 12:40:14 Pt. Name: RIDGE ROLAND /Sex: 1945 Male Med Rec #: [id number] Physician: Bib Sanchez MD Financial #: [id number] Pt. Type: P Room/Bed: / Admit/Disch: 08/07/23 [...] By: Sharee Dominguez RN 08/07/23 12:40 Normal [facility] Operative Reporton 3 Operative Report Patient: [...] 12:33 EDT Respiratory Rate 14 br/min . Normal [facility] Comment on above: Result Comment: Elec tronically Signed By: Bib Sanchez MD\.br\Date and Time Signed: 08/07/23 13:35 EDT Patient Correspondenceon Patient Correspondence [id number]#1.00 CD:127 Normal [facility] Insurance Correspondence Off iceon 07-11-2023 Insurance Correspondence Office [id number]#2.00 CD:127 Normal [facility] Consent for Treatmenton 06-05 Consent for Treatment [id number]#1.00 CD:127 Normal [facility] Consultation Noteon 06-18-20 Consultation Note Patient: KEILA ROLAND Age: 77 years Sex: Male : 1945 Associated Diagnoses: None Author: Fabi WALTERS, Bib Jackson Subjective Chief complaint 06/18/2023 10:00 EDT Lower [...] day(s), # 30 tab(s), Refills(s) 6, Pharmacy: [facility]/pharmacy #[id number], 193, cm, 05/29/23 8:59:00 EDT, Height/Length Dosing, 108.9, kg, 03/19/23 8:54:00 EDT, Weight Dosing Viagra 50 mg Tab: See Instructions, 1-2 tab(s) po 1 hr before sexual acitivity. do not exceed 2 tabs in 24 hrs., # 15 tab(s), Refills(s) 3, Pharmacy: [facility]/pharmacy #[id number], 193, cm, 08/31/22 9:11:00 EDT, [...] list: All Problems Anticoagulated / SNOMED CT 970327268 / Confirmed At risk for falls / SNOMED CT 645562019 / Possible BMI 31.0-31.9,adult / SNOMED CT 531581110 / Confirmed BPH with urinary obstruction / SNOMED CT 9152431736 / Confirmed Chronic prostatitis / SNOMED CT 34378068 / Confirmed Dysuria / SNOMED CT 42708295 / Confirmed ED (erectile dysfunction) / SNOMED CT 1325084580 / Confirmed Elevated PSA / SNOMED CT 7425493246 / Confirmed Gross hematuria / SNOMED CT 083487111 / Confirmed Hernia, inguinal, right / SNOMED CT 164140728 / Confirmed Hypercholesterolemia / SNOMED CT 63486362 / Confirmed Impotence / SNOMED CT 7686568339 / Confirmed Incomplete bladder emptying / SNOMED CT 773925925 / Confirmed Incontinence without sensory awareness / SNOMED CT 1886289410 / Confirmed Leaking of urine / SNOMED CT 3186113910 / Confirmed Nocturia / SNOMED CT 342645878 / Confirmed Post-void dribbling / SNOMED CT 877359485 / Confirmed Prostate cancer screening / SNOMED CT 782612461 / Confirmed Urge incontinence / SNOMED CT 529196770 / Confirmed Urinary frequency / SNOMED CT 588876903 / Confirmed Urinary incontinence / SNOMED CT 8671597226 / Confirmed Urinary retention / SNOMED CT 714518358 / Confirmed Weak urinary stream / SNOMED CT 307677250 / Confirmed Objective Vital Signs 06/18/2023 10:00 [...] options include (more content not included)... Normal [facility] Comment on above: Result Comment: Elec tronically Signed By: Fabi WALTERS, Bib Jackson\.br\Date and Time Signed: 06/18/23 10:46 EDT Office/Clinic Note-Physician on 06-18-2023 Office/Clinic Note-Physician [id number]#1.00 CD:127 [facility] Patient Correspondenceon Patient Correspondence [id number]#1.00 CD:127 Normal [facility] Patient Correspondence [id number]#1.00 CD:127 [facility] Patient History Officeon Patient History Office [id number]#1.00 CD:127 [facility] Consent for Procedure/Surger yon 05-29-2023 Consent for Procedure/Surgery [id number]#1.00 CD:127 [facility] Consent for Treatmenton 05-06 Consent for Treatment [id number]#1.00C D:127 [facility] Discharge Instructionson Discharge Instructions [id number]#1.00 CD:127 [facility] IntraOperative Documentson 0 05-29-2023 IntraOperative Documents [id number]#1.00 CD:127 [facility] Main OR Intraoperative Recor don 05-29-2023 Main OR Intraoperative Record IntraOp Document Type FTPM Summary Primary Physician: Bib Sanchez MD Finalized Date/Time: 05/29/23 09:35:05 Pt. Name: RIDGE ROLAND/Sex: 1945 Male Med Rec #: [id number] Physician: Bib Sanchez MD Financial #: [id number] Pt. Type: P Room/Bed: / Admit/Disch: 05/29/23 08:31:07 - Institution: Case Times FTPM Entry 1 Patient Times In Room 05/29/23 09:27:00 Out Room 05/29/23 09:34:00 Procedure Times Start 05/29/23 09:30:00 Stop 05/29/23 09:33:00 Anesthesia Times Last Modified By: Sharee Dominguez RN 05/29/23 09:33:49 Case Attendance FTPM Entry 1 Entry 2 Entry 3 Case Attendee Fabi WALTERS, Bib Tolentino RN, Sharee Ricks RN Role Performed Surgeon - Primary Scrub - Primary [employer] [place] - Primary Time In 05/29/23 09:27:00 05/29/23 09:27:00 05/29/23 09:27:00 Time Out 05/29/23 09:34:00 05/29/23 09:34:00 05/29/23 09:34:00 Procedure CAUDAL EPIDURAL STEROID CAUDAL EPIDURAL STEROID CAUDAL EPIDURAL STEROID INJECTION(.) INJECTION(.) INJECTION(.) Comments Last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 mg/dl NEAR OR ABOVE OPTIMAL 130 - 159 mg/dl BORDERLINE HIGH 160 - 189 mg/dl HIGH >190 mg/dl VERY HIGH Performed By: #### L IPID #### [facility] [address] [place], [place] [address] Dr. Liban Whyte Triglyceride [Mass/Vol] 50 mg/dL Normal <=150 [facility] Comment on above: Performed By: #### L IPID #### [facility] [address] [place], [place] [address] Dr. Liban Whyte VLDL CALC 10.0 mg/dL Normal [facility] Comment on above: Performed By: #### L IPID #### [facility] [address] [place], [place] [address] Dr. Liban Whyte Office Visit (Cardiology)on 03-28-2022 Follow-up visit Diagnoses/Problems Assessed Arteriosclerosis of coronary artery (414.00) (I25.10) Dyslipidemia (272.4) (E78.5) Essential hypertension (401.9) (I10) Overweight with body mass index (BMI) of 28 to 28.9 in adult (278.02,V85.24) (E66.3,Z68.28) Status post coronary angioplasty (V45.82) (Z98.61) Orders Arteriosclerosis of coronary artery Lipid Panel; Status:Active - Retrospective Authorization; Requested for:[id number]; Arteriosclerosis of coronary artery, Joint pain Start: Meloxicam 15 MG Oral Tablet; TAKE 1 TABLET DAILY Overweight with body mass index (BMI) of 28 to 28.9 in adult Healthy Weight Tips; Status:Complete - Retrospective Authorization; Done: [id number] Patient Instructions Please bring all medicines, vitamins, [...] Recorded: 28Mar2022 01:43PM Heart Rate88, R Radial Vdeupfrl316, RUE, Sitting Iargjyuhc03, RUE, Sitting Height6 ft 4 in Pediox268 lb BMI Rxngycqjyp84.48 kg/m2 BSA Calculated2.37 Tobacco Useb) No PHQ-2 [...] MD; M (more content not included)... Normal Lif[facility] Tobacco Screening.on 022 Adult depression screening assessment No [facility] DO Work Phone: Fall risk assessment b) One or more fall s in the last year [facility] [facility] [employer] 250 DO Work Phone: Tobacco use status [facility] b) No [facility] [employer] DO Work Phone: CNOVon 04-19-2021 CNOV Office Visit (NEURAV ) RIDGE ROLAND ([id number]) 1945 M Date Time Provider Department 04/19/21 [...] He had a second opinion with Dr. Quezada([facility]), felt that he did not need the [...] when he tried to get up the bpm developer, tripped over went ramp. He established with [...] EMG and LP results. Repeat EMG in [facility] (Apr 2020) showed moderate sensorimotor polyneuropathy and [...] hence has not been back to the [facility]. He is not compliant with PT exercises. He continues to have numbness in the feet with intermittent tingling, no sharp/burning pain. ?On 11/08/20, he tripped over the laundry basket and had a cut on the right forehead. No loss of consciousness, he was brought to [facility] needing stitches. CT c- spine showed degenerative [...] as he can do more at the [facility]. They are planning to go back to the [facility]. Current Outpatient Medications Medication Sig Dispense Refill [...] hearing C (more content not included)... Normal [facility] LUMBAR SPINE 2 OR 3 VIEWSon 08-25-2020 LUMBAR SPINE 2 OR 3 VIEWS STUDY: LUMBAR SPINE 2 OR 3 VIEWS; ; 08/25/2020 8:28 am INDICATION: PAIN. COMPARISON: None. ACCESSION NUMBER(S): [id number] ORDERING CLINICIAN: Haseeb Arcos FINDINGS: No acute fracture dislocation. 5 lumbar vertebral bodies are identified. Status post the decompression laminectomy at L4 and L5 level. Moderate facet arthropathy at L4-L5 and L5-S1 resulting in east-it-jdjdxiyp neural foraminal stenosis. The vertebral alignment is normal. The vertebral body heights are maintained. Mild decrease in intervertebral disc space at all levels. Nonspecific bowel gas pattern. Atherosclerotic calcifications of the abdominal aorta. IMPRESSION: Decompression laminectomy at L4 and L5 levels. Moderate facet arthropathy at L4-L5 and L5-S1 levels resulting in fnbh-ws-ecezyfch bilateral neural foraminal stenosis. Normal [facility] LUMBAR SPINE 2 OR 3 VIEWSon 10-31-2019 LUMBAR SPINE 2 OR 3 VIEWS STUDY: LUMBAR SPINE 2 OR 3 VIEWS;; 10/31/2019 10:43 am INDICATION: PAIN. COMPARISON: None. ACCESSION NUMBER(S): [id number] ORDERING CLINICIAN: Haseeb Arcos FINDINGS: No acute [...] facet arthropathy at L3-L4 through L5-S1. Normal [facility] Basic Metabolic Panel Reflex Mgon 04-12-2018 Anion gap 13 mmol/L Normal 7-13 [facility] Calcium 8.5 mg/dL Low 8.6-10.2 [facility] Chloride 95 mmol/L Low 98-107 [facility] CO2 25 mmol/L Normal 22-29 [facility] Creatinine 0.76 mg/dL Normal 0.70-1.20 [facility] eGFR (black) mL/min/{1.73_m2} Normal >60 [facility] Comment on above: Result Comment: >60 mL/min/1.73m2 EGFR, calc. for ages 18 and older using theMDRD formula (not corrected for weight), is valid for stablerenal function. eGFR (MDRD) mL/min/{1.73_m2} Normal >60 [facility] Comment on above: Result Comment: >60 mL/min/1.73m2 EGFR, calc. for ages 18 and older using theMDRD formula (not corrected for weight), is valid for stablerenal function. Glucose mass conc 173 mg/dL Critically high 74-109 [facility] Potassium molar conc 3.7 mmol/L Normal 3.5-5.1 [facility] Sodium 133 mmol/L Normal 132-144 [facility] Urea nitrogen 13 mg/dL Normal 8-23 [facility] CBC With Platelet and Differ entialon 04-12-2018 Basophils Auto #/vol (Bld) 0.0 10*3/uL Normal 0.0-0.2 [facility] Basophils/100 WBC Auto (Bld) 0.1 % Normal [facility] Eosinophils 0.0 10*3/uL Normal 0.0-0.7 [facility] Eosinophils/100 leukocytes 0.0 % Normal [facility] Erythrocyte distribution width Auto Ratio (RBC) 13.7 % Normal 11.5-14.5 [facility] Erythrocytes (RBC) 4.62 10*6/uL Low 4.70-6.10 [facility] Hematocrit (HCT) 42.3 % Normal 42.0-52.0 [facility] Hemoglobin mass conc (Bld) 14.1 g/dL Normal 14.0-18.0 [facility] Lymphocytes 0.8 10*3/uL Low 1.0-4.8 [facility] Lymphocytes/100 leukocytes 4.8 % Normal [facility] MCH 30.4 pg Normal 27.0-31.3 [facility] MCHC mass conc (RBC) 33.2 % Normal 33.0-37.0 [facility] MCV 91.6 fL Normal 80.0-100.0 [facility] Monocytes 0.9 10*3/uL Critically high 0.2-0.8 [facility] Monocytes/100 leukocytes 5.4 % Normal [facility] Neutrophils 14.6 10*3/uL Critically high 1.4-6.5 [facility] Neutrophils/100 leukocytes 89.7 % Normal [facility] Platelets 194 10*3/uL Normal 130-400 [facility] WBC (Leukocytes) 16.2 10*3/uL Critically high 4.8-10.8 M [facility] XR LUMBAR SPINE (2-3 VIEWS)o n 04-12-2018 [...] SPINE. NO FRACTURE.Interpreted by:NATALIA Bravoigned by:Nicky Snow MD6/8/18Final result Normal [facility] Basic Metabolic Panel Reflex Mgon 04-11-2018 Anion gap 14 mmol/L Critically high 7-13 [facility] Calcium 9.5 mg/dL Normal 8.6-10.2 [facility] Chloride 100 mmol/L Normal 98-107 [facility] CO2 25 mmol/L Normal 22-29 [facility] Creatinine 0.85 mg/dL Normal 0.70-1.20 [facility] eGFR (black) mL/min/{1.73_m2} Normal >60 [facility] Comment on above: Result Comment: >60 mL/min/1.73m2 EGFR, calc. for ages 18 and older using theMDRD formula (not corrected for weight), is valid for stablerenal function. eGFR (MDRD) mL/min/{1.73_m2} Normal >60 [facility] Comment on above: Result Comment: >60 mL/min/1.73m2 EGFR, calc. for ages 18 and older using theMDRD formula (not corrected for weight), is valid for stablerenal function. Glucose mass conc 154 mg/dL Critically high 74-109 [facility] Potassium molar conc 3.9 mmol/L Normal 3.5-5.1 [facility] Sodium 139 mmol/L Normal 132-144 [facility] Urea nitrogen 15 mg/dL Normal 8-23 [facility] CBC With Platelet No Differe ntialon 04-11-2018 Erythrocyte distribution width Auto Ratio (RBC) 13.8 % Normal 11.5-14.5 [facility] Erythrocytes (RBC) 5.00 10*6/uL Normal 4.70-6.10 [facility] Hematocrit (HCT) 46.0 % Normal 42.0-52.0 [facility] Hemoglobin mass conc (Bld) 15.4 g/dL Normal 14.0-18.0 [facility] MCH 30.7 pg Normal 27.0-31.3 [facility] MCHC mass conc (RBC) 33.4 % Normal 33.0-37.0 [facility] MCV 92.0 fL Normal 80.0-100.0 [facility] Platelets 192 10*3/uL Normal 130-400 [facility] WBC (Leukocytes) 10.0 10*3/uL Normal 4.8-10.8 [facility] FLUORO FOR SURGICAL PROCEDUR ESon 04-11-2018 FLUORO FOR SURGICAL PROCEDURES FLUORO FOR SURGICAL PROCEDURES : 04/11/2018CLINICAL HISTORY: Lumbar Fusion .COMPARISON: Preoperative spine radiographs 04/10/2018.Intraoperative fluoroscopy was provided for Dr. Rocha's L4-L5-S1 pedicle screws/posterior lumbar fusion L5-S1 PLIF procedures.A total of 77.6 mGy of fluoroscopy was used, with 331 fluoroscopic stills and reconstructed images saved. No diagnostic images were obtained.Please see Dr. Rocha's surgical notes for completeness.Interprete d by:NATALIA Gomesigned by:Kirk Velez MD04/11/18inal result Normal [facility] Surgical Specimenon 04-11-20 Surgical Specimen Invalid Interpretation Code [facility] Comment on above: Result Comment: [address] [id number] [facility] SURGICAL PATHOLOGY REPORTPatient Name: RIDGE ROLAND Accession No: [id number] Age Sex: 1945 Location: [address] [id number] No: [id number] Collected: 04/11/2018Med Rec No: [id number] Received: 04/12/2018Attend Phys: ANNMARIE SMITA Completed: 04/16/2018Perform [...] cm.Sectioned and submitted entirely, one cassette. ALDWA/SCDANCPT: [id number] RIVERS M.D. 04/16/2018 Electronically signed out by Page 1 of 1 Basic Metabolic Panelon 06-0 Anion gap 15 mmol/L Critically high 7-13 [facility] Calcium 9.4 mg/dL Normal 8.6-10.2 [facility] Chloride 98 mmol/L Normal 98-107 [facility] CO2 28 mmol/L Normal 22-29 [facility] Creatinine 0.70 mg/dL Normal 0.70-1.20 [facility] eGFR (black) mL/min/{1.73_m2} Normal >60 [facility] Comment on above: Result Comment: >60 mL/min/1.73m2 EGFR, calc. for ages 18 and older using theMDRD formula (not corrected for weight), is valid for stablerenal function. eGFR (MDRD) mL/min/{1.73_m2} Normal >60 [facility] Comment on above: Result Comment: >60 mL/min/1.73m2 EGFR, calc. for ages 18 and older using theMDRD formula (not corrected for weight), is valid for stablerenal function. Glucose mass conc 105 mg/dL Normal 74-109 [facility] Potassium molar conc 3.7 mmol/L Normal 3.5-5.1 [facility] Sodium 141 mmol/L Normal 132-144 [facility] Urea nitrogen 14 mg/dL Normal 8-23 [facility] CBC With Platelet No Differe ntialon 04-10-2018 Erythrocyte distribution width Auto Ratio (RBC) 14.2 % Normal 11.5-14.5 [facility] Erythrocytes (RBC) 5.34 10*6/uL Normal 4.70-6.10 [facility] Hematocrit (HCT) 49.2 % Normal 42.0-52.0 [facility] Hemoglobin mass conc (Bld) 16.5 g/dL Normal 14.0-18.0 [facility] MCH 30.9 pg Normal 27.0-31.3 [facility] MCHC mass conc (RBC) 33.6 % Normal 33.0-37.0 [facility] MCV 92.1 fL Normal 80.0-100.0 [facility] Platelets 206 10*3/uL Normal 130-400 [facility] WBC (Leukocytes) 6.8 10*3/uL Normal 4.8-10.8 [facility] Culture, MRSA Screenon 04-10 Culture, MRSA Screen ORDERED BY: DANIELLA EUCEDA: Nares Nose COLLECTED: 04/10/18 12:58ANTIBIOTICS AT JULI.: RECEIVED : 04/10/18 12:58Culture, MRSA Screen FINAL 04/11/18 11:22 No MRSA isolated Normal [facility] Prothrombin Timeon 8 INR Coag RelTime (PPP) 1.0 {INR} Normal [facility] Comment on above: Result Comment: Anastacio mmended [...] Coag time (PPP) 10.7 s Normal 9.6-12.3 [facility] Type and Screen Capture 3 sc rn cellon 04-10-2018 Bilirubin (total) PATIENT: ASUNCION Coleman LOC: [place] BILL# : [id number] : 1945 SEX: MORDERED BY: KINSEY Underwood ORDERED : 04/10/2018 11:35 COLLECTED: 04/10/2018 13:00ORDER : [id number] RECEIVED : 04/10/2018 13:00 TEST NAME RESULT UNITS RANGES ABN FL STABORH Capture A POS FAntibody 3 Cell Scrn Captu NEG F --------- Normal [facility] Urinalysis, reflex to cultur aj 04-10-2018 Bilirubin Ql (U) Negative Normal Negative [facility] Urine Reflexed to Culture Not Indicated Normal [facility] Urine, clarity Clear Normal Clear [facility] Urine, color Yellow Normal St[facility] Urine, glucose presence Negative Normal Negative [facility] Urine, hemoglobin presence Negative Normal Negative [facility] Urine, ketones presence Negative Normal Negative [facility] Urine, leukocyte esterase presence Negative Normal Negative [facility] Urine, nitrite presence Negative Normal Negative [facility] Urine, pH 5.5 [pH] Normal 5.0-9.0 [facility] Urine, protein presence Negative Normal Negative [facility] Urine, specific gravity 1.009 Normal 1.005-1.03 [facility] Urine, urobilinogen 0.2 {Kathia'U}/dL Normal < 2.0 [facility] XR SPINE ENTIRE (2-3 VIEWS)o n 04-10-2018 [...] LORDOSIS IDENTIFIED. Interpreted by:NATALIA Oliverigned by:Devang Scott MD04/10/18Final result Normal [facility] Vital Signs Date Time Vital Sign Value Performing Clinician Facility 04-28-2024 10:15-0400 Body height 193.04 cm [facility] 04-28-2024 10:15-0400 Body mass index (BMI) [Ratio] 28.6 kg/m2 [facility] 04-28-2024 10:15-0400 Body weight 106.65 kg [facility] 04-28-2024 10:15-0400 Diastolic blood pressure 79 mm[Hg] [facility] 04-28-2024 10:15-0400 Heart rate 73 /min [facility] 04-28-2024 10:15-0400 Respiratory rate 12 /min [facility] 04-28-2024 10:15-0400 Systolic blood pressure 142 mm[Hg] [facility] 03-14-2024 09:47-0400 Diastolic blood pressure 74 mm[Hg] Stephenie Barrios [facility] 03-14-2024 09:47-0400 Heart rate 67 /min Stephenie Barrios [facility] 03-14-2024 09:47-0400 Mean blood pressure 92 mm[Hg] Stephenie Barrios [facility] 03-14-2024 09:47-0400 Respiratory rate 16 /min Stephenie Barrios [facility] 03-14-2024 09:47-0400 Systolic blood pressure 129 mm[Hg] Stephenie Barrios [facility] 01-25-2024 13:26-0400 Diastolic blood pressure 76 mm[Hg] Stephenie Barrios [facility] 01-25-2024 13:26-0400 Heart rate 71 /min Stephenie Barrios [facility] 01-25-2024 13:26-0400 Mean blood pressure 94 mm[Hg] Stephenie Barrios [facility] 01-25-2024 13:26-0400 Respiratory rate 16 /min Stephenie Barrios [facility] 01-25-2024 13:26-0400 Systolic blood pressure 130 mm[Hg] Stephenie Barrios [facility] 01-18-2024 14:37-0400 Body height 193.04 cm [facility] 01-18-2024 14:37-0400 Body mass index (BMI) [Ratio] 27.8 kg/m2 [facility] 01-18-2024 14:37-0400 Body weight 103.58 kg [facility] 01-18-2024 14:37-0400 Diastolic blood pressure 79 mm[Hg] [facility] 01-18-2024 14:37-0400 Heart rate 71 /min [facility] 01-18-2024 14:37-0400 Respiratory rate 16 /min [facility] 01-18-2024 14:37-0400 Systolic blood pressure 138 mm[Hg] [facility] 01-09-2024 11:34-0500 Heart rate 57 /min Bert Huang [facility] 01-09-2024 11:34-0500 SaO2% (BldA) [Mass fraction] 96 % Bert Huang [facility] 01-09-2024 11:34-0500 Diastolic blood pressure 93 mm[Hg] [facility] 01-09-2024 11:34-0500 Mean blood pressure 118 mm[Hg] [facility] 01-09-2024 11:34-0500 Systolic blood pressure 167 mm[Hg] Bert Huang [facility] 01-09-2024 11:33-0500 Respiratory rate 16 /min Bert Huang [facility] 01-09-2024 11:27-0500 Diastolic blood pressure 83 mm[Hg] Bert Huang [facility] 01-09-2024 11:27-0500 Heart rate 71 /min Bert Huang [facility] 01-09-2024 11:27-0500 Respiratory rate 14 /min Bert Huang [facility] 01-09-2024 11:27-0500 SaO2% (BldA) [Mass fraction] 98 % Bert Huang [facility] 01-09-2024 11:27-0500 Systolic blood pressure 154 mm[Hg] Bert Huang [facility] 01-09-2024 11:03-0500 Diastolic blood pressure 93 mm[Hg] Bert Huang [facility] 01-09-2024 11:03-0500 Heart rate 62 /min Noel Jerry [facility] 01-09-2024 11:03-0500 Mean blood pressure 120 mm[Hg] Bert Huang [facility] 01-09-2024 11:03-0500 Systolic blood pressure 173 mm[Hg] Noel Jerry [facility] 01-09-2024 11:01-0500 SaO2% (BldA) [Mass fraction] 96 % Bert Jerry [facility] 01-09-2024 11:00-0500 Mean blood pressure 123 mm[Hg] Bert Jerry [facility] 01-09-2024 11:00-0500 Body temperature 97.7 [degF] Bert Huang [facility] 01-09-2024 11:00-0500 Respiratory rate 14 /min Bert Jerry [facility] 12-31-2023 09:48-0500 Body height 193.04 cm [facility] 12-31-2023 09:48-0500 Body mass index (BMI) [Ratio] 27.6 kg/m2 [facility] 12-31-2023 09:48-0500 Body weight 102.73 kg [facility] 12-31-2023 09:48-0500 Diastolic blood pressure 81 mm[Hg] [facility] 12-31-2023 09:48-0500 Heart rate 68 /min [facility] 12-31-2023 09:48-0500 Respiratory rate 16 /min [facility] 12-31-2023 09:48-0500 Systolic blood pressure 129 mm[Hg] [facility] 12-14-2023 09:54-0500 Blood Pressure Location Homero XAVIER [facility] 12-14-2023 09:54-0500 Diastolic blood pressure 81 mm[Hg] Homero XAVIER [facility] 12-14-2023 09:54-0500 Heart rate 81 /min Homero XAVIER [facility] 12-14-2023 09:54-0500 Respiratory rate 16 /min Homero XAVIER [facility] 12-14-2023 09:54-0500 Systolic blood pressure 137 mm[Hg] Homero XAVIER [facility] 12-10-2023 12:26-0500 Diastolic blood pressure 86 mm[Hg] Stephenie Barrios [facility] 12-10-2023 12:26-0500 Heart rate 60 /min Stephenie Barrios [facility] 12-10-2023 12:26-0500 Mean blood pressure 105 mm[Hg] Stephenie Barrios [facility] 12-10-2023 12:26-0500 Respiratory rate 20 /min Stephenie Barrios [facility] 12-10-2023 12:26-0500 Systolic blood pressure 144 mm[Hg] Stephenie Barrios [facility] 11-14-2023 10:31-0500 Body height 182.9 cm Marisol Connors MD Work Phone: [facility] 11-14-2023 10:31-0500 Body mass index (BMI) [Ratio] 31.33 kg/m2 Marisol Connors MD Work Phone: [facility] 11-14-2023 10:31-0500 Body weight 104.78 kg Marisol Connors MD Work Phone: [facility] 11-14-2023 10:31-0500 Diastolic blood pressure 64 mm[Hg] Marisol Connors MD Work Phone: [facility] 11-14-2023 10:31-0500 Heart rate 62 /min Marisol Connors MD Work Phone: [facility] 11-14-2023 10:31-0500 Systolic blood pressure 100 mm[Hg] Marisol Connors MD Work Phone: [facility] 11-09-2023 11:14-0500 Diastolic blood pressure 76 mm[Hg] Stephenie Brarios [facility] 11-09-2023 11:14-0500 Heart rate 67 /min Stephenie Barrios [facility] 11-09-2023 11:14-0500 Mean blood pressure 95 mm[Hg] Stephenie Barrios [facility] 11-09-2023 11:14-0500 Respiratory rate 14 /min Stephenie Barrios [facility] 11-09-2023 11:14-0500 Systolic blood pressure 132 mm[Hg] Stephenie Barrios [facility] 10-23-2023 09:00-0500 Body height 193.04 cm Devang Ball Other [facility] 10-23-2023 09:00-0500 Body mass index (BMI) [Ratio] 28.31 kg/m2 Devang Ball Other [facility] Other 10-23-2023 09:00-0500 Body weight 105.51 kg Devang Ball Other [facility] Other 10-23-2023 09:00-0500 Body weight 105.5 kg [facility] 10-23-2023 09:00-0500 Diastolic blood pressure 83 mm[Hg] Devang Ball Other [facility] 10-23-2023 09:00-0500 Respiratory rate 12 /min Devang Ball Other [facility] Other 10-23-2023 09:00-0500 Systolic blood pressure 136 mm[Hg] Devang Ball Other [facility] 10-08-2023 08:11-0500 Heart rate 62 /min Bib Fabi [facility] 10-08-2023 08:11-0500 SaO2% (BldA) [Mass fraction] 93 % Bib Fabi [facility] 10-08-2023 08:11-0500 Diastolic blood pressure 98 mm[Hg] Bib Fabi [facility] 10-08-2023 08:11-0500 Mean blood pressure 124 mm[Hg] Bib Fabi [facility] 10-08-2023 08:11-0500 Systolic blood pressure 175 mm[Hg] Bib Fabi [facility] 10-08-2023 08:11-0500 Respiratory rate 16 /min Bib Fabi [facility] 10-08-2023 08:02-0500 Diastolic blood pressure 90 mm[Hg] Bib Fabi [facility] 10-08-2023 08:02-0500 Heart rate 63 /min Bib Fabi [facility] 10-08-2023 08:02-0500 SaO2% (BldA) [Mass fraction] 97 % Bib Fabi [facility] 10-08-2023 08:02-0500 Systolic blood pressure 168 mm[Hg] Bib Fabi [facility] 10-08-2023 07:16-0500 Heart rate 61 /min Bib Fabi [facility] 10-08-2023 07:16-0500 SaO2% (BldA) [Mass fraction] 95 % Bib Fabi [facility] 10-08-2023 07:16-0500 Body temperature 97.88 [degF] Bib Fabi [facility] 10-08-2023 07:16-0500 Diastolic blood pressure 91 mm[Hg] Bib Fabi [facility] 10-08-2023 07:16-0500 Mean blood pressure 115 mm[Hg] Bib Fabi [facility] 10-08-2023 07:16-0500 Systolic blood pressure 162 mm[Hg] Bib Fabi [facility] 10-08-2023 07:12-0500 Respiratory rate 15 /min Bib Fabi [facility] 09-14-2023 07:47-0500 Diastolic blood pressure 75 mm[Hg] Stephenie Barrios [facility] 09-14-2023 07:47-0500 Heart rate 63 /min Stephenie Barrios [facility] 09-14-2023 07:47-0500 Mean blood pressure 91 mm[Hg] Stephenie Barrios [facility] 09-14-2023 07:47-0500 Respiratory rate 16 /min Stephenie Barrios [facility] 09-14-2023 07:47-0500 Systolic blood pressure 124 mm[Hg] Stephenie Barrios [facility] 08-07-2023 13:25-0400 Heart rate 61 /min Bib Fabi [facility] 08-07-2023 13:25-0400 SaO2% (BldA) [Mass fraction] 97 % Bib Fabi [facility] 08-07-2023 13:25-0400 Diastolic blood pressure 90 mm[Hg] Bib Fabi [facility] 08-07-2023 13:25-0400 Mean blood pressure 119 mm[Hg] Bib Fabi [facility] 08-07-2023 13:25-0400 Systolic blood pressure 176 mm[Hg] Bib Fabi [facility] 08-07-2023 13:19-0400 Diastolic blood pressure 83 mm[Hg] Bib Fabi [facility] 08-07-2023 13:19-0400 Heart rate 65 /min Bib Fabi [facility] 08-07-2023 13:19-0400 SaO2% (BldA) [Mass fraction] 95 % Bib Fabi [facility] 08-07-2023 13:19-0400 Systolic blood pressure 153 mm[Hg] Bib Fabi [facility] 08-07-2023 12:34-0400 Heart rate 62 /min Bibrubi Sanchez [facility] 08-07-2023 12:34-0400 SaO2% (BldA) [Mass fraction] 95 % Bib Sanchez [facility] 08-07-2023 12:34-0400 Body temperature 97.7 [degF] Bib Sanchez [facility] 08-07-2023 12:34-0400 Diastolic blood pressure 73 mm[Hg] Bib Sanchez [facility] 08-07-2023 12:34-0400 Mean blood pressure 101 mm[Hg] Bib Sanchez [facility] 08-07-2023 12:34-0400 Systolic blood pressure 157 mm[Hg] Bib Sanchez [facility] 08-07-2023 12:33-0400 Respiratory rate 14 /min Bib Sanchez [facility] 05-11-2023 09:40-0400 Diastolic blood pressure 77 mm[Hg] Stepheniejakob Barrios [facility] 05-11-2023 09:40-0400 Heart rate 68 /min Stephenie Barrios [facility] 05-11-2023 09:40-0400 Mean blood pressure 95 mm[Hg] Stephenie Barrios [facility] 05-11-2023 09:40-0400 Respiratory rate 14 /min Stephenie Barrios [facility] 05-11-2023 09:40-0400 Systolic blood pressure 130 mm[Hg] Stephenie Barrios [facility] 05-01-2023 14:39-0400 Heart rate 61 /min Bib Fabi [facility] 05-01-2023 14:39-0400 SaO2% (BldA) [Mass fraction] 96 % Bib Fabi [facility] 05-01-2023 14:39-0400 Diastolic blood pressure 80 mm[Hg] Bib Fabi [facility] 05-01-2023 14:39-0400 Mean blood pressure 107 mm[Hg] Bib Fabi [facility] 05-01-2023 14:39-0400 Systolic blood pressure 160 mm[Hg] Bib Fabi [facility] 05-01-2023 14:39-0400 Respiratory rate 14 /min Bib Fabi [facility] 05-01-2023 14:34-0400 Diastolic blood pressure 75 mm[Hg] Bib Fabi [facility] 05-01-2023 14:34-0400 Heart rate 63 /min Bib Fabi [facility] 05-01-2023 14:34-0400 Respiratory rate 14 /min Bib Fabi [facility] 05-01-2023 14:34-0400 SaO2% (BldA) [Mass fraction] 98 % Bib Fabi [facility] 05-01-2023 14:34-0400 Systolic blood pressure 149 mm[Hg] Bib Fabi [facility] 05-01-2023 14:04-0400 Heart rate 60 /min Bib Fabi [facility] 05-01-2023 14:04-0400 SaO2% (BldA) [Mass fraction] 94 % Bib Sanchez [facility] 05-01-2023 14:04-0400 Diastolic blood pressure 78 mm[Hg] Bib Sanchez [facility] 05-01-2023 14:04-0400 Mean blood pressure 103 mm[Hg] Bib Sanchez [facility] 05-01-2023 14:04-0400 Systolic blood pressure 152 mm[Hg] Bib Sanchez [facility] 05-01-2023 14:04-0400 Body temperature 97.34 [degF] Bib Sanchez [facility] 05-01-2023 14:04-0400 Respiratory rate 14 /min Bib Sanchez [facility] 04-30-2023 09:00-0400 Body height 193.04 cm Devang Ball Other [facility] Other 04-30-2023 09:00-0400 Body mass index (BMI) [Ratio] 28.36 kg/m2 Devang Ball Other [employer] Other 04-30-2023 09:00-0400 Body weight 105.69 kg Devang Ball Other [employer] Other 04-30-2023 09:00-0400 Diastolic blood pressure 83 mm[Hg] Devang Ball Other [employer] Other 04-30-2023 09:00-0400 Respiratory rate 12 /min Devang Ball Other [employer] Other 04-30-2023 09:00-0400 Systolic blood pressure 135 mm[Hg] Devang Ball Other [employer] Other 03-19-2023 08:45-0400 Diastolic blood pressure 89 mm[Hg] Stephenie Barrios [facility] 03-19-2023 08:45-0400 Heart rate 67 /min Stephenie Barrios [facility] 03-19-2023 08:45-0400 Mean blood pressure 106 mm[Hg] Stephenie Barrios [facility] 03-19-2023 08:45-0400 Respiratory rate 20 /min Stephenie Barrios [facility] 03-19-2023 08:45-0400 Systolic blood pressure 140 mm[Hg] Stephenie Barrios [facility] 03-12-2023 09:15-0400 Heart rate 65 /min Bib Fabi [facility] 03-12-2023 09:15-0400 SaO2% (BldA) [Mass fraction] 96 % Bib Fabi [facility] 03-12-2023 09:15-0400 Diastolic blood pressure 92 mm[Hg] Bib Fabi [facility] 03-12-2023 09:15-0400 Mean blood pressure 114 mm[Hg] Bib Fabi [facility] 03-12-2023 09:15-0400 Systolic blood pressure 159 mm[Hg] Bib Fabi [facility] 03-12-2023 09:15-0400 Respiratory rate 16 /min Bib Fabi [facility] 03-12-2023 09:11-0400 Diastolic blood pressure 67 mm[Hg] Bib Fabi [facility] 03-12-2023 09:11-0400 Heart rate 70 /min Bib Fabi [facility] 03-12-2023 09:11-0400 Respiratory rate 14 /min Bib Fabi [facility] 03-12-2023 09:11-0400 SaO2% (BldA) [Mass fraction] 94 % Bib Fabi [facility] 03-12-2023 09:11-0400 Systolic blood pressure 160 mm[Hg] Bib Fabi [facility] 03-12-2023 08:09-0400 Heart rate 71 /min Bib Fabi [facility] 03-12-2023 08:09-0400 SaO2% (BldA) [Mass fraction] 95 % Bib Fabi [facility] 03-12-2023 08:09-0400 Diastolic blood pressure 69 mm[Hg] Bib Fabi [facility] 03-12-2023 08:09-0400 Mean blood pressure 102 mm[Hg] Bib Fabi [facility] 03-12-2023 08:09-0400 Systolic blood pressure 168 mm[Hg] Bib Fabi [facility] 03-12-2023 08:09-0400 Body temperature 97.52 [degF] Bib Fabi [facility] 03-12-2023 08:09-0400 Respiratory rate 12 /min Bib Fabi [facility] 03-08-2023 09:32-0400 Body height 193.04 cm Devang Iwona Ball Work Phone: [facility] 250 DO Work Phone: 03-08-2023 09:32-0400 Body mass index (BMI) [Ratio] 29.21 kg/m2 Devang Bustillo Ball Work Phone: [facility] [employer] 250 DO Work Phone: 03-08-2023 09:32-0400 Body surface area Derived from formula 2.39 m2 Devang E Ball Work Phone: [facility] [employer] 250 DO Work Phone: 03-08-2023 09:32-0400 Body weight 108.86 kg Devang E Ball Work Phone: [facility] [employer] 250 DO Work Phone: 03-08-2023 09:32-0400 Diastolic blood pressure 84 mm[Hg] Devang Bustillo Ball Work Phone: [facility] [employer] 250 DO Work Phone: 03-08-2023 09:32-0400 Heart rate 68 /min Devang Bustillo Ball Work Phone: [facility] [employer] 250 DO Work Phone: 03-08-2023 09:32-0400 Systolic blood pressure 132 mm[Hg] Devang Bustillo Ball Work Phone: [facility] [employer] 250 DO Work Phone: 02-21-2023 14:00-0400 Body height 193.04 cm Allison Blades Other [employer] Other 02-21-2023 14:00-0400 Body mass index (BMI) [Ratio] 30.43 kg/m2 Allison Blades Other [employer] Other 02-21-2023 14:00-0400 Body weight 113.4 kg Allison Blades Other [employer] Other 02-21-2023 14:00-0400 Diastolic blood pressure 66 mm[Hg] Allison Blades Other [employer] Other 02-21-2023 14:00-0400 Systolic blood pressure 110 mm[Hg] Allison Blades Other [employer] Other 01-01-2023 10:00-0500 Body height 190.5 cm LUDWIN VUCETIC Other [facility] Anita Margarita Other 01-01-2023 10:00-0500 Body mass index (BMI) [Ratio] 30.62 kg/m2 LUDWIN VUCETIC Other [facility] Anita Margarita Other 01-01-2023 10:00-0500 Body weight 111.13 kg LUDWIN VUCETIC Other [facility] Anita Margarita Other 01-01-2023 10:00-0500 Diastolic blood pressure 66 mm[Hg] LUDWIN VUCETIC Other [facility] [employer] Other 01-01-2023 10:00-0500 Respiratory rate 16 /min LUDWIN VUCETIC Other [facility] Anita Margarita Other 01-01-2023 10:00-0500 Systolic blood pressure 118 mm[Hg] LUDWIN VUCETIC Other [facility] [employer] Other 11-29-2022 10:30-0500 Body height 193.04 cm Allison Blades Other [employer] Other 11-29-2022 10:30-0500 Body mass index (BMI) [Ratio] 29.84 kg/m2 Allison Blades Other [employer] Other 11-29-2022 10:30-0500 Body weight 111.22 kg Allison Blades Other [employer] Other 11-29-2022 10:30-0500 Diastolic blood pressure 84 mm[Hg] Allison Blades Other [employer] Other 11-29-2022 10:30-0500 Systolic blood pressure 138 mm[Hg] Allison Blades Other [employer] Other 11-28-2022 09:00-0500 Blood Pressure Location ALANIS NINA [facility] 11-28-2022 09:00-0500 Diastolic blood pressure 84 mm[Hg] ALANIS NINA [facility] 11-28-2022 09:00-0500 Heart rate 68 /min ALANIS NINA [facility] 11-28-2022 09:00-0500 Respiratory rate 16 /min ALANIS NINA [facility] 11-28-2022 09:00-0500 Systolic blood pressure 121 mm[Hg] ALANIS NINA [facility] 09-26-2022 09:33-0500 Body height 193.04 cm Devang Hall Work Phone: [employer] 250 DO Work Phone: 09-26-2022 09:33-0500 Body mass index (BMI) [Ratio] 29.7 kg/m2 Devang Hall Work Phone: [employer] [place] 250 DO Work Phone: 09-26-2022 09:33-0500 Body surface area Derived from formula 2.41 m2 Devang E Ball Work Phone: [facility] [place] 250 DO Work Phone: 09-26-2022 09:33-0500 Body weight 110.68 kg Devang E Ball Work Phone: [facility] [place] 250 DO Work Phone: 09-26-2022 09:33-0500 Diastolic blood pressure 78 mm[Hg] Devang E Ball Work Phone: [facility] [place] 250 DO Work Phone: 09-26-2022 09:33-0500 Heart rate 76 /min Devang E Ball Work Phone: [facility] [place] 250 DO Work Phone: 09-26-2022 09:33-0500 Systolic blood pressure 120 mm[Hg] Devang E Ball Work Phone: [facility] [place] 250 DO Work Phone: 03-28-2022 13:43-0400 Body height 193.04 cm Devang Bustillo Ball Work Phone: [facility] 250 DO Work Phone: 03-28-2022 13:43-0400 Body mass index (BMI) [Ratio] 28.48 kg/m2 Devang Bustillo Ball Work Phone: [facility] 250 DO Work Phone: 03-28-2022 13:43-0400 Body surface area Derived from formula 2.37 m2 Devang E Ball Work Phone: [facility] 250 DO Work Phone: 03-28-2022 13:43-0400 Body weight 106.14 kg Devang E Ball Work Phone: [facility] 250 DO Work Phone: 03-28-2022 13:43-0400 Diastolic blood pressure 60 mm[Hg] Devang Bustillo Ball Work Phone: [facility] 250 DO Work Phone: 03-28-2022 13:43-0400 Heart rate 88 /min Devang E Ball Work Phone: [facility] 250 DO Work Phone: 03-28-2022 13:43-0400 Systolic blood pressure 100 mm[Hg] Devang Bustillo Ball Work Phone: [facility] 250 DO Work Phone: Encounters Encounter Date Encounter Type Care Provider Facility Start: 04-28-2024 End: 04-28-2024 ambulatory [facility] Work Phone: Start: 04-28-2024 End: 04-28-2024 Patient encounter procedure [facility] Work Phone: Start: 03-14-2024 End: 03-15-2024 ambulatory [facility] Facility:[facility] Start: 03-14-2024 End: 03-14-2024 Pain Management [facility] Start: 02-25-2024 End: 02-26-2024 ambulatory ANDREW CRUZ Not Available Start: 01-25-2024 End: 01-26-2024 ambulatory [facility] Facility:[facility] Start: 01-25-2024 End: 01-25-2024 Pain Management [facility] Start: 01-18-2024 End: 01-18-2024 ambulatory [facility] Work Phone: Start: 01-18-2024 End: 01-18-2024 Patient encounter procedure [facility] Work Phone: Start: 01-09-2024 End: 01-10-2024 ambulatory Bert Huang Facility:[facility] Start: 01-09-2024 End: 01-09-2024 Pain Management Bert Huang [facility] Start: 12-31-2023 End: 12-31-2023 ambulatory [facility] Work Phone: Start: 12-31-2023 End: 12-31-2023 Patient encounter procedure [facility] Work Phone: Start: 12-24-2023 Non-patient / Non-visit [facility] [employer] Work Phone: Start: 12-14-2023 End: 12-15-2023 ambulatory Homero XAVIER Facility:[facility] Start: 12-14-2023 End: 12-14-2023 Patient encounter procedure Homero XAVIER [facility] Start: 12-11-2023 End: 12-12-2023 ambulatory RAMONITA WOOD Facility:[facility] Start: 12-10-2023 End: 12-11-2023 ambulatory Stephenie Barrios Facility:[facility] Start: 12-10-2023 End: 12-10-2023 Pain Management Stephenie Barrios [facility] Start: 11-28-2023 End: 11-28-2023 ambulatory Devang Hall Other [facility] Other Start: 11-28-2023 Telephone encounter Devang Hall [facility] Start: 11-14-2023 End: 11-14-2023 ambulatory MARISOL Gao [facility] Start: 11-14-2023 End: 11-14-2023 Office outpatient visit 25 minutes Marisol Connors MD Work Phone: [phone] [place] [address] Comment on above: Arteriosclerosis of coronary artery (Primary Dx); Status post coronary angioplasty; Dyslipidemia; Essential hypertension; Obesity (BMI 30.0-34.9); At risk for falls Start: 11-09-2023 End: 11-10-2023 ambulatory Stephenie Barrios Facility:[facility] Start: 11-09-2023 End: 11-09-2023 Pain Management Stephenie Barrios [facility] Start: 10-23-2023 End: 10-23-2023 ambulatory Devang Hall Other [facility] Other Start: 10-23-2023 Office outpatient vi sit 25 minutes [facility] Start: 10-23-2023 End: 10-23-2023 Patient encounter procedure [facility] Work Phone: Start: 10-08-2023 End: 10-09-2023 ambulatory Bib Sanchez Facility:[facility] Start: 10-08-2023 End: 10-08-2023 Pain Management Bib Sanchez [facility] Start: 09-14-2023 End: 09-15-2023 ambulatory Stephenie Barrios Facility:[facility] Start: 09-14-2023 End: 09-14-2023 Pain Management Stephenie Barrios [facility] Start: 09-04-2023 End: 09-05-2023 ambulatory Bib Sanchez Facility:[facility] Start: 08-28-2023 End: 08-29-2023 ambulatory DEVANG HALL Facility:[facility] Start: 08-07-2023 End: 08-08-2023 ambulatory MD Bib Sanchez Facility:[facility] Start: 08-07-2023 End: 08-07-2023 Pain Management Bib Sanchez [facility] Start: 06-18-2023 End: 06-19-2023 ambulatory Bib Sanchez Facility:[facility] Start: 05-29-2023 End: 05-30-2023 ambulatory Bib Sanchez Facility:[facility] Start: 05-11-2023 End: 05-12-2023 ambulatory Stephenie Barrios Facility:[facility] Start: 05-11-2023 End: 05-11-2023 Pain Management Stephenie Barrios [facility] Start: 05-03-2023 End: 05-03-2023 ambulatory Devang Hall Other [employer] Other Start: 05-03-2023 Telephone encounter Devang [facility] Start: 05-01-2023 End: 05-02-[address] [facility] Other Start: 05-01-2023 Telephone encounter Devang [facility] Start: 05-01-2023 End: 05-01-2023 Pain Management Bib Sanchez [facility] Start: 04-30-2023 End: 04-30-2023 ambulatory Devang Hall Other [employer] Other Start: 04-30-2023 Patient encounter procedure Devang Hall [facility] Start: 03-19-2023 End: 03-20-2023 ambulatory Stephenie Barrios Facility:[facility] Start: 03-19-2023 End: 03-19-2023 Pain Management Stephenie Barrios [facility] Start: 03-14-2023 End: 03-15-[address] MARISOL CONNORS Facility: Start: 03-12-2023 End: 03-13-[address] MARISOL CONNORS Facility:[facility] Start: 03-12-2023 End: 03-12-2023 Pain Management Bib Sanchez [facility] Start: 03-08-2023 FUV, Provider: Marisol Connors, Status: Pen, Time: 9:50 AM Devang Hall Work Phone: [facility] 250 DO Work Phone: Start: 03-08-2023 Office outpatient vi sit 25 minutes Devang Iwona Hall Work Phone: [facility] 250 DO Work Phone: Start: 03-08-2023 ambulatory Damon Connors Facility : Start: 03-06-2023 Rx Renewal Devang collins Work Phone: [facility] 250 DO Work Phone: Start: 02-21-2023 End: 02-21-2023 ambulatory Allison Kenyon Other [facility] Other Start: 02-21-2023 Office outpatient vi sit 15 minutes Allison Blades [facility] Start: 01-10-2023 End: 03-02-[address] DOCTOR PLUMMER Facility:[facility] Start: 01-01-2023 End: 01-01-2023 ambulatory LUDWIN LEMON Other [facility]. Other Start: 01-01-2023 Office outpatient ne w 45 minutes LUDWIN LEMON [facility] Start: 11-29-2022 End: 11-29-2022 ambulatory Allison Blades Other [employer] Other Start: 11-29-2022 Office outpatient ne w 45 minutes Allison Blades [facility] Start: 11-29-2022 Telephone encounter Allison Kenyon [facility] [employer] Start: 11-28-2022 End: 11-28-2022 Patient encounter procedure ALANIS WOOD [facility] Start: 11-15-2022 End: 11-15-2022 ambulatory Devang Hall Other [facility] Other Start: 11-15-2022 Telephone encounter Devang Hall Jraeth Hall [facility] Start: 11-14-2022 End: 11-15-[address] DEVANG HALL Facility: Start: 10-11-2022 Rx Renewal Devang Gonzalez l Work Phone: [facility] 250 DO Work Phone: Start: 09-26-2022 Office outpatient vi sit 25 minutes Devang Hall Work Phone: [facility] 250 DO Work Phone: Start: 09-26-2022 ambulatory Marisol Connors Facility :[id number] Start: 05-30-2022 End: 05-30-2022 Patient encounter procedure Goldy Alberto Jr. [facility] Start: 05-11-2022 End: 05-11-2022 Patient encounter procedure Goldy Alberto Jr. [facility] Start: 05-09-2022 End: 05-09-2022 Patient encounter procedure Goldy Alberto Jr. [facility] Start: 04-25-2022 End: 04-25-2022 Emergency department patient visit Dr. Devang Hall Facility:[facility] Start: 04-07-2022 End: 04-08-[address] MARISOL CONNORS Facility: Start: 03-28-2022 Office outpatient vi sit 25 minutes Devang Hall Work Phone: [facility] 250 DO Work Phone: Start: 03-28-2022 ambulatory Marisol Connors Facility : Start: 03-06-2022 Rx Renewal Marisol Connors MD Work Phone: [facility] 250 DO Work Phone: Start: 09-26-2021 Rx Renewal Marisol Connors MD Work Phone: [facility] 250 DO Work Phone: Start: 09-22-2021 Rx Renewal Marisol Connors MD Work Phone: [facility] 250 DO Work Phone: Start: 04-11-2018 End: 04-13-2018 Evaluation and management of inpatient DEVANG [facility] Start: 04-10-2018 Ambulatory [facility] Start: 04-10-2018 End: 04-15-2018 Ambulatory [facility] Procedures Date Procedure Procedure Detail Performing Clinician Start: 01-09-2024 Injection of sacroil iac joint using fluoroscopic guidance Scripped Comment on above: 90% relief for 4 hrs Start: 10-08-2023 Radiofrequency ablat ion of nerve root of lumbar spine using fluoroscopic guidance Thinglink Comment on above: Bilateral L3/4+L4/5- no relief Start: 09-04-2023 Injection of facet j oint using fluoroscopic guidance Scripped Comment on above: Bilateral L3/4, L4/5 MBB-80% relief for 1 day Start: 08-07-2023 Injection of facet j oint using fluoroscopic guidance Scripped Comment on above: BL L3/L4 L4/L5 MBB 8 5% Relief x 4 hours Start: 05-29-2023 Local anesthetic sac ral epidural block Bib Sanchez Comment on above: Caudal john 50% relie f Start: 05-01-2023 Injection of facet j oint using fluoroscopic guidance Thing[employer] Comment on above: bilateral 75% relief for 2 hours Start: 03-12-2023 Injection of facet j oint using fluoroscopic guidance Stephenie [employer] Comment on above: pt changed amt of re lief to 80% x 4 hr. bilat L3/4 MBB- 50% relief x 4 hr Start: 05-11-2022 Injection of therape utic substance into bladder wall ALANIS WOOD Start: 02-07-2021 Blepharoplasty Goldy Burleson karsten Cruz Start: 12-02-2020 Cystourethroscopy wi th dilation of urethral stricture Goldy Remy Cruz Start: 11-02-2020 Cataract extraction and insertion of intraocular lens Goldyjorje Alberto Jr. Start: 04-28-2020 Transurethral prostatectomy Goldy Alberto Jr. Start: 12-08-2019 Cystourethroscopy wi th dilation of urethral stricture Goldy Remy Cruz Start: 10-16-2019 back surgery 1 Goldy shelley Comment on above: 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 3 Start: 10-16-2019 back surgery 3 Stepheniejakob levin Comment on above: 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 3 Start: 10-16-2019 back surgery 4 Stephenie Sarah Beth ollie Comment on above: 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 3 Start: 10-16-2019 back surgery 5 Bib patel Comment on above: 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 3 Start: 10-16-2019 back surgery 7 Stephenie S bri Comment on above: 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 3 Start: 10-16-2019 back surgery 8 Stephenie S ollie Comment on above: 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 3 Start: 10-16-2019 back surgery 9 Stephenie S ollie Comment on above: 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 3 Start: 06-16-2019 Placement of stent i n cardiac conduit Goldy Remy Cruz Start: 11-05-2018 History of placement of stent for coronary artery disease H/O heart artery stent Start: 04-13-2018 INCENTIVE SPIROMETRY RT ANNMARIE SMITA [...] O Start: 04-12-2018 ACTIVITY TOLERATED B O SMITA Start: 04-12-2018 AMBULATE PATIENT ANNMARIE SMITA Start: 04-12-2018 END TIDAL CO2 CONTINUOUS ANNMARIE SMITA Start: 04-12-2018 PULSE OXIMETRY, CONTINUOUS ANNMARIE SMITA Start: 04-12-2018 INCENTIVE SPIROMETRY RT ANNMARIE SMITA Start: 04-11-2018 END TIDAL CO2 CONTINUOUS ANNMARIE SMITA Start: 04-11-2018 INCENTIVE SPIROMETRY RT ANNMARIE MSITA Start: 04-11-2018 PULSE OXIMETRY, CONTINUOUS ANNMARIE SMITA [...] Hernia repair Marisol Connors MD Work Phone: History of placement of stent for coronary artery disease H/O heart artery stent Procedure on back Marisol muñoz MD Work Phone: Release of trigger finger Do abdullahi Alberto Jr. Tonsillectomy Marisol Connors MD Work Phone: Plan of Treatment Date Care Activity Detail Author Start: 11-08-2030 DTaP/Tdap/Td Vaccine s (2 - Tdap) DTaP/Tdap/Td Vaccines (2 - Tdap) [facility] Start: 05-22-2024 End: 05-22-2024 Patient encounter procedure 05/22/2024 9:50 AM EDT Office Visit [facility] [address] [id number] Marisol Connors MD 703 [facility] 2, [address] [address] [facility] Start: 09-18-2023 FUV, Provider: Marisol Connors, Status: Pen, Time: 9:50 AM FUV, Provider: Marisol Connors, Status: Pen, Time: 9:50 AM [facility] 250 DO Work Phone: Start: 03-08-2023 FUV, Provider: Marisol Connors, Status: Pen, Time: 9:50 AM FUV, Provider: Marisol Connors, Status: Pen, Time: 9:50 AM [facility] 250 DO Work Phone: Start: 10-22-2022 COVID-19 Vaccine (4 - Pfizer series) COVID-19 Vaccine (4 - Pfizer series) [facility] Start: 09-26-2022 FUV, Provider: Marisol Connors, Status: Pen, Time: 9:40 AM FUV, Provider: Marisol Connors, Status: Pen, Time: 9:40 AM [facility] 250 DO Work Phone: Start: 03-28-2022 FUV, Provider: Marisol Connors, Status: Pen, Time: 1:20 PM FUV, Provider: Marisol Connors, Status: Pen, Time: 1:[address] [facility] 250 DO Work Phone: Start: 12-15-2021 FUV, Provider: Marisol Connors, Status: Pen, Time: 10:30 AM FUV, Provider: Marisol Connors, Status: Pen, Time: 10:[address] [facility] 250 DO Work Phone: Start: 1996 Zoster Vaccines (1 of 2) Zoste r Vaccines (1 of 2) [facility] Start: 1964 Hepatitis C screening Hepatitis C Sc [facility] Start: 1945 Lipid panel Lipid Panel [facility] Start: 1945 Medicare Annual Well ness Visit Medicare Annual Wellness Visit (AWV) [facility] Comprehensive metabo lic 2000 panel - Serum or Plasma [facility] Immunizations Immunization Date Immunization Notes Care Provider Tali hwang 08-20-2023 influenza virus vaccine, unspecified formulation Homero XAVIER [facility] 08-27-2022 Pfizer COVID-19 Vac Bivalent 30 MCG/0.3ML Intramuscular Suspension Devang aHll Work Phone: [facility] 08-14-2022 Fluzone High-Dose Quadrivalent 0.7 ML Intramuscular Suspension Prefilled Syringe Devang Hall Work Phone: [facility] 250 DO Work Phone: 08-14-2022 influenza virus vaccine, unspecified formulation ALANIS WOOD [facility] 08-14-2022 influenza, high dose seasonal, preservative-free Devang Hall Other [facility] Primo[facility] Other 10-03-2021 Pfizer-BioNTech COVID-19 Vacc 30 MCG/0.3ML Intramuscular Suspension Devang Hall Work Phone: [facility] 10-03-2021 SARS-CoV-2 (COVID-19 ) Ad26 vaccine, recombinant Goldy Alberto Jr. [facility] 07-01-2021 Fluzone High-Dose Quadrivalent 0.7 ML Intramuscular Suspension Prefilled Syringe Devang Hall Work Phone: [facility] 250 DO Work Phone: 07-01-2021 influenza virus vaccine, unspecified formulation ALANIS WOOD [facility] 06-05-2021 influenza virus vaccine, unspecified formulation Goldy Alberto Jr. [facility] 01-25-2021 Pfizer-BioNTech COVID-19 Vacc 30 MCG/0.3ML Intramuscular Suspension Marisol Connors MD Work Phone: [facility] 01-25-2021 SARS-CoV-2 (COVID-19 ) Ad26 vaccine, recombinant Goldyjorje Alberto Jr. [facility] 01-03-2021 COVID-19 Vaccine Pfi zer - Documentation Purposes Only Devang Hall Other [facility] 01-03-2021 SARS-CoV-2 (COVID-19 ) mRNA-1273 vaccine Goldy Alberto Jr. [facility] 12-28-2020 Pfizer-BioNTech COVID-19 Vacc 30 MCG/0.3ML Intramuscular Suspension Devang Hall Work Phone: [facility] 11-08-2020 diphtheria, tetanus toxoids and pertussis vaccine Devang Hall Work Phone: [place] [address] DO Work Phone: 07-06-2020 influenza virus vaccine, unspecified formulation Marisol Connors MD Work Phone: [facility] 07-02-2020 influenza virus vaccine, unspecified formulation ALANIS WOOD [facility] 08-19-2018 influenza virus vaccine, unspecified formulation ALANIS WOOD [facility] 08-19-2018 Seasonal trivalent influenza vaccine, adjuvanted, preservative free Devang Hall Work Phone: [facility] 250 DO Work Phone: 07-06-2018 influenza virus vaccine, unspecified formulation Marisol Connors MD Work Phone: [facility] 250 DO Work Phone: 08-24-2017 pneumococcal conjuga te vaccine, 13 valent Devang Hall Work Phone: [facility] 08-17-2017 influenza virus vaccine, unspecified formulation ALANIS WOOD [facility] 08-17-2017 influenza, high dose seasonal, preservative-free Devang E Rafael Work Phone: [place] [address] DO Work Phone: 11-05-2016 pneumococcal polysaccharide vaccine, 23 valent Marisol Connors MD Work Phone: [facility] 250 DO Work Phone: 08-11-2016 influenza virus vaccine, unspecified formulation ALANIS WOOD [facility] 08-05-2016 influenza virus vaccine, unspecified formulation ALANIS WOOD [facility] 08-05-2016 influenza, injectabl e, quadrivalent, preservative free Devang E Rafael Work Phone: [place] [address] DO Work Phone: 07-06-2014 pneumococcal polysaccharide vaccine, 23 valent Devang Bustillo Rafael Work Phone: [facility] Payers Date Payer Category Payer Medicare AETNA MEDICARE A ETNA MEDICARE ASSURE [id number] 2021-Present [id number] [place] [address] [id number] 2017 Medicare [id number] 1958 Medicare [id number] [id number] 1946 Unknown [id number] 2.16.840.1.881189.3.579.2.356 1946 Unknown [id number] 2.16.840.1.845499.3.579.2.356 1946 Unknown [id number] 2.16.840.1.315169.3.579.2.356 1946 Unknown [id number] 2.16.840.1.930724.3.579.2.356 1946 Unknown [id number] 2.16.840.1.026932.3.579.2.593 1946 Unknown [id number] 2.16.840.1.158276.3.579.2.593 1946 Unknown [id number] 2.16.840.1.974186.3.579.2.593 1946 Unknown [id number] 2.16.840.1.241637.3.579.2.593 1946 Unknown [id number] 2.16.840.1.819303.3.579.2.593 1946 Unknown [id number] 2.16.840.1.817546.3.579.2.1244 1946 Unknown [id number] 2.16.840.1.665925.3.579.2.1259 1946 Unknown [id number] 2.16.840.1.682045.3.579.2.1259 1946 Unknown [id number] 2.16.840.1.598242.3.579.2.727 1946 Unknown [id number] 2.16.840.1.454246.3.579.2.727 1946 Unknown [id number] 2.16.840.1.472574.3.579.2.727 1946 Unknown [id number] 2.16.840.1.449184.3.579.2.727 1946 Unknown [id number] 2.16.840.1.715917.3.579.2.727 1946 Unknown [id number] 2.16.840.1.514756.3.579.2.727 1946 Unknown [id number] 2.16.840.1.896727.3.579.2.727 1946 Unknown [id number] 2.16.840.1.144122.3.579.2.727 1946 Unknown [id number] 2.16.840.1.134263.3.579.2.727 1946 Unknown [id number] 2.16.840.1.186053.3.579.2.727 1946 Unknown [id number] 2.16.840.1.328957.3.579.2.727 1946 Unknown [id number] 2.16.840.1.317265.3.579.2.727 1946 Unknown [id number] 2.16.840.1.209447.3.579.2.72 1946 Unknown [id number] 2.16.840.1.865905.3.579.2.727 1946 Unknown [id number] 2.16.840.1.284117.3.579.2.727 1946 Unknown [id number] 2.16.840.1.525073.3.579.2.727 1946 Unknown [id number] 2.16.840.1.965183.3.579.2. Self-pay Self Pay [id number] Unknown [employer] Social History Date Type Detail [facility] Start: 1945 Sex Assigned At Male F [facility] Start: 11-14-2023 Social alcohol use Social alcohol e -[facility] [address] DO Work Phone: Start: 06-16-2019 End: 11-15-2021 Tobacco smoking status Ex-smoker (finding) [facility] Comment on above: pt quit smoking in 984 Start: 11-14-2023 Sex Assigned At Male [facility] Tobacco smoking status Never [facility] Comment on above: pt quit smoking in 1 984 Start: 01-01-2023 [facility] Other History of tobacco use Current smoker [facility] Work Phone: History of tobacco use Cigarette Smoker [facility] [place] [facility] Work Phone: Start: 11-14-2023 Tobacco use and exposure Smokeless tobacco non-user [facility] Work Phone: Start: 11-14-2023 Alcohol intake Ex-drinker (finding) [facility] Work Phone: Start: 1945 Sex Assigned At Not on file [facility] Work Phone: Start: 11-04-2023 End: 11-14-2023 Exposure to SARS-CoV-2 (event) Not sure [facility] Medical Equipment Procedure Code Equipment Code Equipment Origin al Text Equipment Identifier Dates FDA Start: 06-16-2019 CL CLOSURE DEVIC E EXOSEAL 6F FDA Start: 06-16-2019 CATARACT EXTRACT ION W/ INTRAOCULAR LENS Adolph Schultz DO 11/02/20 Non Biological Eye R [id number] FDA Start: 11-02-2020 CL CLOSURE DEVIC E EXOSEAL 6F FDA Start: 06-16-2019 CL STENT ADRIANO 4. 0 X 12 FDA Start: 06-16-2019 CL CLOSURE DEVIC E EXOSEAL 6F FDA Start: 06-16-2019 CL STENT ADRIANO 4. 0 X 12 FDA Start: 06-16-2019 CL CLOSURE DEVIC E EXOSEAL 6F FDA Start: 06-16-2019 CL STENT ADRIANO 4. 0 X 12 FDA Start: 06-16-2019 Goals Date Patient Goal Desired Activity /State Functional Status Date Assessment Result Facility 03-14-2024 Functional Status N/A [facility] 01-25-2024 Functional Status N/A [facility] 01-09-2024 Functional Status N/A [facility] 12-14-2023 Functional Status N/A [facility] 12-10-2023 Functional Status N/A [facility] 11-09-2023 Functional Status N/A [facility] 10-08-2023 Functional Status N/A [facility] 09-14-2023 Functional Status N/A [facility] 08-07-2023 Functional Status N/A [facility] 05-11-2023 Functional Status N/A [facility] 05-01-2023 Functional Status N/A [facility] 03-19-2023 Functional Status N/A [facility] 03-12-2023 Functional Status N/A [facility] 11-28-2022 Functional Status N/A [facility] 05-30-2022 Functional Status N/A [facility] 05-05-2022 Functional Status N/A [facility] Clinical Notes 12-29-2020 to 03-14-2024 Note Date & Type Note Facility 03-14-2024 Evaluation + Plan note Extrac yina from: Title:Pain Managment Follow up Author:Stephenie Claudio Date:03/14/24 Impression and Plan Patient is a 78-year-old male with a past medical history significant for postlaminectomy syndrome, chronic pain and chronic low back pain. Unfortunate, patient's symptoms have not gotten any better with the injections he has undergone and the medications he has trialed have caused Side Effects. We Discussed Possible Spinal Cord Stimulator Trial. Questions and Concerns Were All Answered and Discussed. He Will Be Given Information about This. I Would like Him to Trial Elavil 10 Mg at Bedtime. Potential Effects Were Discussed. He Is Going to Follow-Up in 2 to 4 Weeks for Reevaluation. Call Clinic Sooner If Necessary. I Would Also like to Discuss His Case with Dr. Huang. Patient Will Follow-Up As Above-Mentioned. OARRS Reviewed ZACARIAS Score: 58% Future Appointments Appointment Date:05/02/2024 10:30:00 AM Scheduled Provider:Stephenie Barrios PA-C Location:.[facility] Appointment Type:Pain Management - Follow Up (FT) [facility]03-22-2024 Evaluation + Plan noteExtracted from: Title:Pain Managment Follow up Author:Stephenie Claudio Date:01/25/24 Impression and Plan Patient is a 78-year-old male with a past medical history significant for postlaminectomy syndrome, lumbar spondylosis and sacroiliitis. Patient still has not gotten the relief he is looking for. The ablation did not help and the sacroiliac joint injection did not help. At this time, he does not want to undergo any more injections. He states that they have not given him when he is looking for and they have been painful for him. We reviewed his medications. We discussed different options. At this time, we will start Cymbalta 30 mg daily. How to start the medication was discussed. Potential side effects were discussed. At this time, patient is going to start the medication and follow-up in 1 to 2 months. Call the clinic sooner if necessary. OARRS reviewed ZACARIAS score: 25% Future Appointments Appointment Date:03/14/2024 09:45:00 AM Scheduled Provider:Stephenie Barrios PA-C Location:[facility] Appointment Type:Pain Management - Follow Up (FT) [facility]03-06-2024 Evaluation + Plan noteExtracted from: Title:Bilateral sacroiliac joint injection Autho r:Bert Huang DO Date:01/09/24 Diagnosis: M46.1, bilateral sacroiliitis Procedure: Bilateral diagnostic and therapeutic sacroiliac Joint injections under fluoroscopic guidance Anesthesia: Local Complications: none After informed consent was obtained, the patient was brought back to the procedure room and placed in the prone position. Back areas prepped and draped in the usual sterile fashion using fluoroscopic guidance, the skin and subcutaneous tissues overlying the needle trajectory over the lower aspect of sacroiliac joint were anesthetized with 2% lidocaine. The 22-gauge Quincke needles were then introduced in the lower aspect of the sacroiliac joints. Injection of contrast under fluoroscopy revealed appropriate intra-articular spread with confirmation in at least 2 views. Thereafter, 2 mL of 0.5% bupivacaine with 20 mg of methylprednisolone was injected into each sacroiliac joint. The needles were then removed. The patient tolerated procedure well. Patient was then transferred to the recovery room in stable condition. Follow-up: The patient will update us on the response to this procedure, and agrees to continue currently prescribed/recommended therapies. Future Appointments Appointment Date:01/25/2024 01:30:00 PM Scheduled Provider:Stephenie Barrios PA-C Location:.[facility] [place] Appointment Type:Pain Management - Follow Up (FT) [facility]03-06-2024 Note [id number] NoteDiagnosis: M46.1, bilateral sacroiliitis Procedure: Bilateral diagnostic and therapeutic sacroiliac Joint injections under fluoroscopic guidance Anesthesia: Local Complications: none After informed consent was obtained, the patient was brought back to the procedure room and placed in the prone position. Back areas prepped and draped in the usual sterile fashion using fluoroscopicguidance, the skin and subcutaneous tissues overlying the needle trajectory over the lower aspect of sacroiliac joint were anesthetized with 2% lidocaine. The 22-gauge Quincke needles were then introduced in the lower aspect of the sacroiliac joints. Injection of contrast under fluoroscopy revealedappropriate intra-articular spread with confirmation in at least 2 views. Thereafter, 2 mL of 0.5% b upivacaine with 20 mg of methylprednisolone was injected into each sacroiliac joint. The needles were then removed. The patient tolerated procedure well. Patient was then transferred to the recovery room in stable condition. Follow-up: The patient will update us on the response to this procedure, and agrees to continue currently prescribed/recommended therapies.[facility] Comment on above:Result Comment: Electronically Signed By: Bert Huang DO.amy\Date and Time Signed: 01/09/24 11:32 [id number] Hospital Discharge instructions Patient Education 12/14/2023 10:59:33 Urinary Incontinence Urinary Incontinence Urinary incontinence refers to a condition in which a person is unable to control where and when topass urine. A person with this condition will urinate involuntarily. This means that the person urinates when he or she does not mean to. What are the causes? This condition may be caused by: Medicines. Infections. Constipation. Overactive bladder muscles. Weak bladder muscles. Weak pelvic floor muscles. These muscles provide support for the bladder, intestine, and, in women,the uterus. Enlarged prostate in men. The prostate [...] a small amount, or constantly dribbling urine (overflowincontinence). Urinating because you cannot get to the [...] fiber include beans, whole grains, and fresh fruitsand vegetables. Behavioral changes, such as: ?Pelvic floor [...] nerve stimulation). ?For women, using a medical investigator to prevent urine leaks. This is a small, tampon-like, disposabledevice that is inserted into the urethra. ?Injecting [...] right after experiencing incontinence. General instructions Take bvmo-lpc-txusztm and prescription medicines only as told by [...] important. Where to find more information [employer] [place] of Diabetes and Digestive and Kidney Diseases: www.niddk.nih.gov [employer] [employer]: www.urologyhealth.org Contact a health care [...] is unable to control where and when topass urine. This condition may be caused by medicines, infection, weak bladder muscles, weak pelvic floor muscles, enlargement of the prostate (in men), or surgery. Factors such as older age, obesity, and childbirth, menopause, neurological diseases, andchronic coughing may increase your risk for developing [...] provider. Document Revised: 05/27/2021 Document Reviewed: 05/27/2021 [employer] Patient Education 2022 Individual Digital. Follow Up Care 12/07/2023 15:16:05 With:DUC WALTERS, Homero Marie, SHARADL Address: [facility] [address], [place] [address]- [phone] When: only if needed [facility] 02-05-2024 Evaluation + Plan noteExtracted from: Title:Pain Managment [...] Date:12/14/2023 09:30:00 AM Scheduled Provider:Homero XAVIER MD Location:[facility] Appointment Type:URO Office Visit [facility]01-10-2024 History of Present illness Narrative* Marisol [...] Scribe Attestation By signing my name below, I, Ruby Warren SILVA , Scribe attest that this documentation has been prepared under the direction and in the presence of Marisol Connors MD. Assessment/Plan 1. Arteriosclerosis of coronary artery Follow Up In Cardiology 2. Status post coronary angioplasty 3. Dyslipidemia 4. Essential hypertension 5. Obesity (BMI 30.0-34.9) 6. At risk for falls [facility] Work Phone: 1(370) 554-326301-10-2024 Instructions* Patient Instructions* Steven Wheeler MA - [...] Fall Prevention Education Given [facility] Work Phone: 1(508) 281-535701-05-2024 Evaluation + Plan noteExtracted from: Title:Pain Managment [...] Date:12/10/2023 11:15:00 AM Scheduled Provider:Bib Sanchez MD Location:[facility] Appointment Type:Pain Management - Follow Up (FT) Appointment Date:12/11/2023 01:00:00 PM Scheduled Provider:ALANIS WOOD PA-C Location:[facility] Appointment Type:URO Office Visit [facility]12-19-2023 Evaluation note* Encounter Date Diagnosis Assessment [...] Oct, Fatigue, unspecified type (ICD-10 - R53.83) [facility] Other 12-04-2023 Note [id number] 09-14-2023 Evaluation + Plan noteExtracted from: Title:Pain [...] follow-up as above mentioned ZACARIAS score: 28% [facility]10-31-2023 Note [id number]23 [id number]:127[facility]07-25-2023 Note [id number]:[address] [place] [address] 05-11-2023 Evaluation + Plan noteExtracted from: Title:Pain [...] clinic sooner if necessary. ZACARIAS score: 42% [facility]06-29-2023 Evaluation note* Encounter Date Diagnosis Assessment Notes Treatment Notes Treatment Clinical Notes Apr, Thyroid cyst (ICD-10 - E04.1) FNA non-diagnostic - 2014, US: stable nodules, no further scans necessary - 04/2023 [employer] [facility] Other 06-27-2023 Note [id number]:127[facility] 03-19-2023 Evaluation + Plan noteExtracted from: Title:Pain [...] clinic sooner if necessary. ZACARIAS score: 48% [facility]04-19-2023 Evaluation note* Encounter Date Diagnosis Assessment Notes Treatment Notes Treatment Clinical Notes Feb, Low back pain, unspecified (ICD-10 - M54.50) [facility] Other 02-27-2023 Evaluation note* Encounter Date Diagnosis [...] R26.89) Dec, Physical deconditioning (ICD-10 - R53.81) [facility] [employer] [facility]. Other 01-25-2023 Evaluation note* Encounter Date Diagnosis Assessment Notes Treatment Notes Treatment Clinical Notes Nov, Low back pain, unspecified (ICD-10 - M54.50) Nov, Other chronic pain (ICD-10 - G89.29) [employer] Other 01-24-2023 Hospital Discharge instructions Patient Education [...] urethra. Follow these instructions at home: Take inuk-toc-mmkoaeg and prescription medicines only as told by [...] 10/22/2006 Document Revised: 09/16/2019 Document Reviewed: 11/26/2017 [employer] Patient Education 2020 Individual Digital. Follow Up Care 08/31/2022 09:40:03 With:NINA SHIPMAN, ALANIS Bustillo, URL Address: [address] [place] [address] When: Unknown [facility] Discharge instructions Patient Education 05/30/2022 [...] urethra. Follow these instructions at home: Take nung-urb-dowhskz and prescription medicines only as told by [...] 10/22/2006 Document Revised: 09/16/2019 Document Reviewed: 11/26/2017 [employer] Patient Education 2020 Individual Digital. Follow Up Care 05/11/2022 10:39:09 With:Remy Cruz MD, CHARO Parra Address: [facility] [address] [place] [address]- [phone] When:Within 2 Month(s) Comments:PVR [facility] 07-07-2022 Hospital Discharge instructions Patient Education 05/11/2022 [...] With:Goldy Alberto Address: [facility] [address] [place] [address]- Business (1) When:4 weeks Comments:PVR with next office visit [facility]06-15-2021 NoteHNO ID: [id number] Author: Alanis Nguyen MD Service: ? Author [...] He had a second opinion with Dr. Quezada([facility]), felt that he did not need the [...] when he tried to get up the bpm developer, tripped over went ramp. He established with [...] hence has not been back to the [facility]. He is not compliant with PT exercises. He continues to have numbness in the feet with intermittent tingling, no sharp/burning pain. ?On 11/08/20, he tripped over the laundry basket and had a cut on the right forehead. No loss of consciousness, he was brought to [facility] needing stitches. CT c- spine showed degenerative [...] as he can do more at the [facility]. They are planning to go back to the [facility]. Current Outpatient Medications Medication Sig Dispense Refill [...] pain, no s (more content not included)... [facility]02-24-2021 NotePatient Outreach (COVAMN) RIDGE ROLAND ([id number]) 1945 M Date Time Provider Department 12/29/20 FELIBERTOSYARITZA During your visit today, we recorded the following information about you: Allergies As of Date: 12/29/2020 (No Known Allergies) Date Reviewed: 11/16/2020 Reviewed by: Mauri Du) SHIRA Horn - Fully Assessed Order(s):SARS-COVID VACCINE 1ST DOSE APPT [[id number]] Order #: [id number] FUTURE Prescriptions as of 12/29/2020 Sig: CYANOCOBALAMIN [...] (None) Encounter Status:Closed by OSCAR SULLIVAN on 01/03/21[facility] Evaluation + Plan note Future Appointments Appointment Date:05/11/2022 10:00:00 AM Scheduled Provider: Location:[facility] Appointment Type:Urology FT [facility] evaluation + Plan note Future Appointments Appointment Date:05/30/2022 09:30:00 AM Scheduled Provider:Goldy Alberto Jr., MD Location:[facility] Future Appointments Appointment Date:08/08/2022 08:45:00 AM Scheduled Provider:Goldy Alberto Jr., MD Location:[facility] Appointment Type:URO Office Visit [facility] evaluation + Plan note Future Appointments Appointment Date:01/10/2023 11:00:00 AM Scheduled Provider:ALANIS WOOD PA-C Location:[facility] Appointment Type:URO Office Visit [facility] evaluation + Plan note Future Appointments Appointment Date:03/19/2023 08:30:00 AM Scheduled Provider:Stephenie Barrios PA-C Location:[facility] [place] Appointment Type:Pain Management - Follow Up (FT) [facility] + Plan note Future Appointments Appointment Date:05/11/2023 10:00:00 AM Scheduled Provider:Stephenie Barrios PA-C Location:[facility] [place] App[facility] note Future Appointments Appointment Date:08/28/2023 07:45:00 AM Scheduled Provider:Bib Sanchez MD Location:[facility] [place] Appointment Type:Pain Management - Follow Up (FT) [facility] + Plan note Future Appointments Appointment Date:11/09/2023 11:15:00 AM Scheduled Provider:Stephenie Barrios PA-C Location:[facility] [place] Appointment Type:Pain Management - Follow Up (FT) [facility] noteNo [facility] [employer] Other Evaluation note* Diagnosis Arteriosclerosis of coronary artery- Primary Status post coronary angioplasty Postsurgical percutaneous transluminal coronary angioplasty status Dyslipidemia Other and unspecified hyperlipidemia Essential hypertension Unspecified essential hypertension Obesity (BMI 30.0-34.9) At risk for falls Personal history of fall documented in this encounter [facility] Work Phone: Evaluation note* Diagnosis Onset Date Resolution Status Abnormal intentional weight loss acute ASHD (arteriosclerotic heart disease) acute Hypercholesterolemia acute Impaired fasting glucose acu te Memory deficit acute Primary hypertension acute [facility] Work Phone: Evaluation note* Diagnosis Onset Date Resolution Status Impaired fasting glucose acu te Lumbar spondylosis acute Memory deficit acute Primary hypertension acute Abnormal intentional weight loss acute ASHD (arteriosclerotic heart disease) acute Impaired fasting glucose acu te Primary hypertension acute [facility] Work Phone: Evaluation note* Diagnosis Onset Date Resolution Status ASHD (arteriosclerotic heart disease) acute Hypercholesterolemia acute Impaired fasting glucose acu te Lumbar spondylosis acute Polyneuropathy acute Primary hypertension acute Medicare annual wellness visit, subsequent noneactive Screening PSA (prostate specific antigen) noneactive [facility] Work Phone: History general Narrative - Reported* Type Description Date Medical History HTN Medical History neuropathy Medical History arthritis Medical History heart stent Medical History cataracts Medical History Gout Medical History high cholesterol Medical History prostate Surgical History heart cath with stent placed Surgical History back surgery x 2 Surgical History hernia repair Hospitalization History see surg hx [facility] Other History general Narrative - Reported* Type Description [...] eyes Hospitalization History see surgery list S [facility] Other History [facility] Other Hospital course Narrative No data available for this section [facility] Discharge instructions No data available for this section [facility] progress note No data available for this section [facility] [employer] reason for referral (narrative)* Consultation (Routine) - Authorized Specialty Diagnoses / Procedures Referred By Contac t Referred To Contact Cardiology Diagnoses Arteriosclerosis of coronary artery Procedures Follow Up In Cardiology Marisol Connors MD [address] [place] [address] [address] [place] [address] Marisol Connors MD [address] [place] [address] [address] [place] [address] Referral ID Status Reason Start Date Expiration Date V isits Requested Visits Authorized [id number] Authorized 11/14/2023 11/13/2024 1 1 [facility] Work Phone: Summary Purpose Family History Relationship Condition Age at Onset Recorded Date/T [...] bundle bra nch block: Sister(V17.49, Z82.49) Status:Active Relationship Condition Age at Onset Recorded Date/T beatriz Not Specified No pertinent family history Unknown father Unknown Not Specified Unknown Advance Directives Advance Directive Response Recorded Date/ Time Advance Directives No June 30, 2017 11:34am Advance Directive Response Recorded Date/ Time Advance Directives No June 30, 2017 12:34pm Assessments No Assessments Information Available Chief Complaint [...] 1 Lumbar spondylosis ( M47.816) Referral Organization Replaced by [facility] Referring Provider First Name Devang Referring Provider Last Name Rafael Referring Provider Specialty Internal Me dicine Referred Organization [facility] Referred Provider Allison Kenyon [place] [address] [place],[address] Referred Provider Specialty Neurological Surgery Referral Priority [...] aggravated by unsteadiness due to peripheral neuropathy. Chief Complaint and Reason for Visit Chief Complaint 6 Month Follow Up TB Reason for Visit Abnormal intentional weight loss ASHD (arteriosclerotic heart disease) Hypercholesterolemia Impaired fasting glucose Memory deficit Primary hypertension Chief Complaint TB Blood Pressure Reason for Visit Impaired fasting glu cose Lumbar spondylosis Memory deficit Primary hypertension Abnormal intentional weight loss ASHD (arteriosclerotic heart disease) Impaired fasting glucose Primary hypertension Chief Complaint Wellness Reason for Visit ASHD (arteriosclerot ic heart disease) Hypercholesterolemia Impaired fasting glucose Lumbar spondylosis Polyneuropathy Primary hypertension Medicare annual wellness visit, subsequent Screening PSA (prostate specific antigen) Additional Source Comments (unrecognized sect ion and content) No Status Records FoundNo Status Records FoundNo Status Records FoundNo Status Records FoundNo Status Records FoundNo Status Records FoundNo Status Records FoundNo Status Records FoundNo Status Records Found INFORMATION SOURCE (unrecogn ized section and content) DATE CREATED AUTHOR 04/23/2018 [facility] DATE CREATED AUTHOR AUTHOR'S ORGANIZ ATION 09/10/2020 [facility] DATE CREATED AUTHOR AUTHOR'S ORGANIZ ATION 12/26/2021 [facility] DATE CREATED AUTHOR AUTHOR'S ORGANIZ ATION 03/11/2023 [facility] DATE CREATED AUTHOR AUTHOR'S ORGANIZ ATION 03/11/2023 [employer] DATE CREATED AUTHOR AUTHOR'S ORGANIZ ATION 03/18/2023 [facility] DATE CREATED AUTHOR AUTHOR'S ORGANIZ ATION 11/18/2023 [facility] DATE CREATED AUTHOR AUTHOR'S ORGANIZ ATION 03/01/2024 [facility] EPIC DATE CREATED AUTHOR AUTHOR'S ORGANIZ ATION 03/16/2024 [facility] Care Team (unrecognized sect ion and content) Team Status: Active Member Role Status Dates Devang Hall DO Primary Care Provider Active Team Status: Inactive Member Role Status Dates Devang Hall DO Primary Care Provide r, Attending Provider Active Start: April 28, 2024 End: April 28, 2024 Team Status: Active Member Role Status Dates Devang Hall DO Primary Care Provider Active Team Status: Active Member Role Status Dates Devang Hall DO Primary Care Provide r, Attending Provider Active Start: December 24, 2023 Team Status: Inactive Member Role Status Dates Devang Hall DO Primary Care Provide r, Attending Provider Active Start: December 31, 2023 End: December 31, 2023 Team Status: Inactive Member Role Status Dates Devang Hall DO Primary Care Provide r, Attending Provider Active Start: January 18, 2024 End: January 18, 2024 Special Education Curriculum Specialist Relationship Specialty Start Date End Date RafaelDevang [address] [place] [address] [place] [address] PCP - General Internal Medicine 11/14/23 Team Status: Inactive Member Role Status Dates Devang Hall DO Attending Provider Active Sta rt: October 23, 2023 End: October 23, 2023 Team Status: Inactive Member Role Status Dates Devang Hall DO Primary Care Provide r, Attending Provider Active Start: April 28, 2024 End: April 28, 2024 REASON FOR VISIT (unrecogniz ed section and content) Reason Comments Follow-up 6 month Goals (unrecognized section and content) Goals may be documented in a n alternate section FOR RECORDS PERTAINING TO PATIENTS WHO ARE [...] BE BASED ON THE PRIMARY CLINICAL RECORDS. [facility] NP [employer] [facility]. provides no warranty or guarantee of the accuracy or completeness of information in this document.
[2024-04-29 09:30] LABS: Basophils Percent Auto 0.5 % (0.2-2.0); Eosinophils Absolute Auto 0.1 10^3/uL (0.0-0.7); Eosinophils Percent Auto 1.8 % (0.9-7.0); Hematocrit 43.4 % (42.0-54.0); Immature Granulocytes Abs Auto 0.13 10^3/uL (0.00-0.03); Immature Granulocytes Pct Auto 1.8 % (0.0-0.5); Lymphocytes Absolute Auto 1.3 10^3/uL (1.2-3.8); Lymphocytes Percent Auto 17.6 % (20.5-60.0); Mean Corpuscular HGB Conc 34.6 g/dL (29.9-35.2); Mean Corpuscular Hemoglobin 31.8 pg (25.9-34.0); Mean Corpuscular Volume 92.1 fL (80.0-94.0); Mean Platelet Volume 10.1 fL (9.5-13.5); Monocytes Absolute Auto 0.7 10^3/uL (0.3-0.8); Monocytes Percent Auto 10.1 % (1.7-12.0); Neutrophils Percent Auto 68.2 % (43.0-75.0); Platelet Count 242 10^3/uL (150-450); Red Blood Count 4.71 10^6/uL (4.70-6.10); Red Cell Distribution Width 12.8 % (11.0-15.0); White Blood Count 7.3 10^3/uL (4.0-11.0)
[2024-04-29 09:58] LABS: Estimated Average Glucose 111 mg/dL; Glycohemoglobin A1C 5.5 % (4.5-6.2)
[2024-04-29 10:03] LABS: Alanine Aminotransferase 24 U/L (16-63); Albumin Globulin Ratio 1.1; Albumin Level 3.8 g/dL (3.4-5.0); Alkaline Phosphatase 89 U/L (46-116); Aspartate Amino Transferase 14 U/L (15-37); Bilirubin Total 0.9 mg/dL (0.2-1.0); Calcium 9.5 mg/dL (8.5-10.1); Carbon Dioxide 27.8 mmol/L (21.0-32.0); Chloride 99 mmol/L (98-107); Cholesterol 138 mg/dL (<=200); Estimated GFR (African America >60 (>=60); Estimated GFR (Non-African Ame >60 (>=60); Globulin 3.4 g/dL; Glucose 109 mg/dL (74-106); HDL Cholesterol 68 mg/dL (40-60); Potassium 3.8 mmol/L (3.5-5.1); Sodium 137 mmol/L (136-145); Total Protein 7.2 g/dL (6.4-8.2); Triglycerides 57 mg/dL (<=150); VLDL CHOLESTEROL 11.4 mg/dL
== END 2024-04-29 08:57 | disposition home or self-care (01) ==
LOC: LAB 09:00
PROVIDERS: PCP Internal Medicine; Visit Provider Internal Medicine
DX: E78.00 Pure hypercholesterolemia, unspecified (principal); I10 Essential (primary) hypertension; I25.10 Atherosclerotic heart disease of native coronary artery without angina pectoris; R73.01 Impaired fasting glucose
CPT/HCPCS: 36415; 80053; 80061; 83036; 85025

== ENCOUNTER 2024-05-02 20:00 | Emergency (ER) | payer MEDICARE, SELFPAY ==
[2024-05-02 20:05] VITALS: BP 110/67; PULSE 71; TEMP 37; O2SAT 96; BMI 28.6
--- OUTSIDE RECORDS SUMMARY | 2024-05-02 20:07 | XMS_ITS | CCD ---
Author Organization [facility] Care Team Providers Care Processor Solid [employer] Name Role Phone SMITA, ANNMARIE H. Unavailable Unavailable DEVANG HALL E Unavailable Unavailable SMITA, ANNMARIE H. Unavailable Unavailable SMITA, ANNMARIE H. Unavailable Unavailable RAFAEL, DEVANG E Unavailable Unavailable RAFAEL, DEVANG E Unavailable Unavailable SMITA, ANNMARIE H. Unavailable Unavailable SMITA, ANNMARIE H. Unavailable Unavailable SMITA, ANNMARIE H. Unavailable Unavailable Unavailable Unavailable Devang Hall Unavailable DEVANG HALL Primary Care Physician Devang Hall Unavailable LUDWIN LEMON Unavailable Allison Kenyon Unavailable Marisol Connors Referring Unavailable Rafael, Dr. Devang Renteria Primary Care Marisol East Attending Unavailable Marisol Connors Referring Unavailable Ball, Dr. Devang Renteria Primary Care Marisol East Attending Unavailable ConnorsMarisol muñoz Attending Unavailable Marisol Connors Referring Unavailable Ball, Dr. Devang Renteria Primary Care Juan José Hall, Dr. Devang Renteria Primary Care Rajesh Menezes Attending Unavailable CONNORS, DR MARISOL Gao Admitting Unavailable CONNORS, DR MARISOL Goa Attending Unavailable RAFAEL, DR DE LA CRUZ [...] [HYDROcodone-Alberto taminophen TABS] Drug Allergy 10-12-20 Hallucinations [facility] (18 sources) oxybutynin; Translations: [oxybutynin] Drug Allergy Hallucinations (finding) [facility] (20 sources) oxyCODONE; Translations: [oxycodone] Drug Allergy 10-12-20 Hallucinations [facility] (1 source) oxyCODONE Drug Allergy 11-05-19 [facility] Repository (1 source) Acetaminophen / HYDROcodone; Translations: [HYDROCODONE-ALBERTO TAMINOPHEN] Drug Allergy 10-12-20 [place] [address] Repository (1 source) DULoxetine; Translations: [duloxetine] Drug Allergy Hallucinations (finding) [facility] (1 source) Sulfonamides (Antibiotic); Translations: [sulfa drugs] Propensity to adverse reactions (disorder) [facility] Repository Medications Current Medications Medication Drug [...] day(s), # 30 tab(s), Refills(s) 1, Pharmacy: [facility]/pharmacy #[id number], 193, cm, 03/14/24 9:55:00 EDT, Height/Length [...] 12:00am take 1 tablet by mouth once yoesf y ascorbic acid (Vitamin C) 1,000 mg [...] procedure, # 14 tab(s), Refills(s) 0, Pharmacy: [facility]/pharmacy #[id number], 193, cm, 03/14/22 10:49:00 EDT, Height/Length [...] day(s), # 60 cap(s), Refills(s) 1, Pharmacy: [facility]/pharmacy #[id number], 193, cm, 01/25/24 13:38:00 EDT, Height/Length Dosing, 102.4, kg, 01/25/24 13:38:00 EDT, Weight Dosing Start Date: 01/25/24 Stop Date: 03/25/24 Status: Ordered erythromycin 0.005 mg/mg ophthalmic ointment (1 source) Macrolide, Macrolide Antimicrobial Start: 02-07-2021 erythromycin ophthalmic 0.5% ointment 0.5 in, Eye-Both, QID, 3.5 gram, Refill(s) 1, [facility]/pharmacy #[id number], 192, cm, 02/03/21 8:57:00 EDT, Height/Length [...] day(s), # 90 tab(s), Refills(s) 3, Pharmacy: [facility] ([facility]), 193, cm, 12/27/21 9:50:00 EST, [...] Marisol Connors MD Start : 26-Sep-2022 Active [place] 2-Uhb-Xdw-Fish Oil (1 source) Start: 07-02-2017 take 1200 mg by mouth once daily [place] 2-Zdp-Muv-Fish Oil Active 1200 MG Oral Daily July [...] BID, # 60 cap(s), Refills(s) 2, Pharmacy: [facility]/pharmacy #[id number], 193, cm, 11/09/23 11:29:00 EST, Height/Length Dosing, 110, kg, 11/09/23 11:29:00 EST, Weight Dosing Start Date: 11/09/23 Status: Ordered Start: 04-18-2023 End: 05-18-2023 take 1 capsule by mouth twice daily pregabalin 25 mg Cap 25 mg = 1 cap(s), Oral, BID, X 30 day(s), # 60 cap(s), Refills(s) 0, Pharmacy: [facility]/pharmacy #[id number], 193, cm, 03/19/23 8:54:00 EDT, Height/Length Dosing, 108.9, kg, 03/19/23 8:54:00 EDT, Weight Dosing Start Date: 04/18/23 Stop Date: 05/18/23 Status: Ordered Start: 03-19-2023 [facility] 1 capsule [facility] daily pregabalin 25 mg Cap 25 mg = 1 cap(s), Oral, BID, # 60 cap(s), Refills(s) 0, Pharmacy: [facility]/pharmacy #[id number], 193, cm, 03/19/23 8:54:00 EDT, Height/Length Dosing, 108.9, kg, 03/19/23 8:54:00 EDT, Weight Dosing Start Date: 03/19/23 Status: Ordered take 1 capsule by [facility] once daily pregabalin (Lyrica) 25 mg capsule Take 1 capsule (25 mg) by mouth once daily. 0 Active sildenafil 50 mg oral tablet (14 sources) Phosphodiesterase 5 Inhibitor Start: 09-07-2022 Viagra 50 mg Tab See Instructions, 1-2 tab(s) po 1 hr before sexual acitivity. do not exceed 2 tabs in 24 hrs., # 15 tab(s), Refills(s) 3, Pharmacy: [facility]/pharmacy #[id number], 193, cm, 08/31/22 9:11:00 EDT, Height/Length Dosing, 114.5, kg, 08/31/22 9:11:00 EDT, Weight Dosing Start Date: 09/07/22 Status: Ordered traMADol hydrochloride 50 mg oral tablet (1 source) Opioid Agonist Start: 02-07-2021 take 1 tablet by mouth every six hours as needed for pain traMADOL 50 mg Tab 50 mg = 1 tab(s), Oral, q6hr, PRN Pain, # 20 tab(s), Refills(s) 0, Pharmacy: [facility]/pharmacy #[id number], 192, cm, 02/03/21 8:57:00 EDT, Height/Length [...] 8:09am docusate sodium 50 mg / sennosides, senior living 8.6 mg oral tablet (3 sources) Start: [...] 02, 2017 12:00am July 24, 2017 8:15am [place] 8-Pcr-Fgp-Fish Oil (Fi sh Oil) 1,000 mg (120 mg-180 mg) Capsule (3 sources) Start: 07-02-2017 End: 12-27-2023 [place] 4-Lid-Lem-Fish Oil (Fi sh Oil) 1,000 mg (120 mg-180 mg) Capsule Discontinued 1200 MG PO Daily July 02, 2017 12:00am December 27, 2023 3:30pm Start: 07-02-2017 End: 12-27-2023 [place] 4-Cpp-Lin-Fish Oil (Fi sh Oil) 1,000 mg (120 [...] Onset: 04-25-2022 Episodic Other aftercare (1 source) intermediate designer (current) use of aspirin; Translations: [intermediate designer (current) use of aspirin] Onset: 04-25-2022 Episodic Other aftercare (1 source) intermediate designer (current) use of antithrombotics/ant iplatelets; Translations: [group [...] Consent for Treatmenton 03-05 Consent for Treatment [id number]#1.00T IFF Normal [facility] Consultation Noteon 03-14-20 Consultation Note Patient: [...] day(s), # 60 cap(s), Refills(s) 1, Pharmacy: [facility]/pharmacy #[id number], 193, cm, 01/25/24 13:38:00 EDT, Height/Length Dosing, 102.4, kg, 01/25/24 13:38:00 EDT, Weight Dosing Viagra 50 mg Tab: See Instructions, 1-2 tab(s) po 1 hr before sexual acitivity. do not exceed 2 tabs in 24 hrs., # 15 tab(s), Refills(s) 3, [id number], cm, 08/31/22 9:11:00 EDT, Height/Length Dosing, 114.5, kg, 08/31/22 9:11:00 EDT, Weight Dosing... amitriptyline 10 mg Tab: 10 mg = 1 tab(s), Oral, Once a day (at bedtime), X 30 day(s), # 30 tab(s), Refills(s) 1, [id number] 193, cm, 03/14/24 9:55:00 EDT, Height/Length Dosing, 104.5, kg, 03/14/24 9:55:00 EDT, Weight Dosing pregabalin 25 mg Cap: 25 mg = 1 cap(s), Oral, BID, # 60 cap(s), Refills(s) 2, [id number] 193, cm, 11/09/23 11:29:00 EST, [...] list: All Problems Hypercholesterolemia / SNOMED CT 10634767 / Confirmed Hernia, inguinal, right / SNOMED CT 142626718 / Confirmed BPH with urinary obstruction / SNOMED CT 5917639495 / Confirmed Elevated PSA / SNOMED CT 0968021017 / Confirmed Impotence / SNOMED CT 8420110638 / Confirmed Urinary frequency / SNOMED CT 158116534 / Confirmed Nocturia / SNOMED CT 854027868 / Confirmed Weak urinary stream / SNOMED CT 439226714 / Confirmed Gross hematuria / SNOMED CT 729064999 / Confirmed Anticoagulated / SNOMED CT 054897177 / Confirmed Urge incontinence / SNOMED CT 930027049 / Confirmed Chronic prostatitis / SNOMED CT 48253049 / Confirmed Dysuria / SNOMED CT 23655459 / Confirmed Urinary retention / SNOMED CT 706546854 / Confirmed BMI 31.0-31.9,adult / SNOMED CT 638821664 / Confirmed Incomplete bladder emptying / SNOMED CT 851884123 / Confirmed Post-void dribbling / SNOMED CT 453178356 / Confirmed Incontinence without sensory awareness / SNOMED CT 2355466879 / Confirmed At risk for falls / SNOMED CT 467181275 / Possible ED (erectile dysfunction) / SNOMED CT 0663023437 / Confirmed Leaking of urine / SNOMED CT 0485629488 / Confirmed Urinary incontinence / SNOMED CT 5765281506 / Confirmed Prostate cancer screening / SNOMED CT 565445123 / Confirmed Resolved: Hypertension / SNOMED CT 0294357084 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 5/5 strength Integumentary: Warm, Dry, Colburn. Neurologic: Alert, Oriented. Psy (more content not included)... Normal [facility] Comment on above: Result Comment: Elec tronically Signed By: Sophie SHIPMAN, Stephenie\.br\Date and Time Signed: 03/14/24 10:17 EDT Office/Clinic Note-Physician on 03-14-2024 Office/Clinic Note-Physician [id number]#1.00T IFF Normal [facility] Patient Correspondenceon Patient Correspondence [id number]#1.00T IFF Normal [facility] Patient Correspondence [id number]#1.00T IFF Normal [facility] Patient History Officeon Patient History Office [id number]#1.00T IFF Normal [facility] Consent for Treatmenton 01-04 Consent for Treatment [id number]#1.00 TIFF Normal [facility] Consultation Noteon 01-25-20 Consultation Note Patient: [...] day(s), # 60 cap(s), Refills(s) 1, [id number] 193, cm, 01/25/24 13:38:00 EDT, Height/Length Dosing, 102.4, kg, 01/25/24 13:38:00 EDT, Weight Dosing Viagra 50 mg Tab: See Instructions, 1-2 tab(s) po 1 hr before sexual acitivity. do not exceed 2 tabs in 24 hrs., # 15 tab(s), Refills(s) 3, Pharmacy: [facility]/pharmacy #[id number], 193, cm, 08/31/22 9:11:00 EDT, Height/Length Dosing, 114.5, kg, 08/31/22 9:11:00 EDT, Weight Dosing... pregabalin 25 mg Cap: 25 mg = 1 cap(s), Oral, BID, # 60 cap(s), Refills(s) 2, [id number] 193, cm, 11/09/23 11:29:00 EST, [...] list: All Problems Hypercholesterolemia / SNOMED CT 22208758 / Confirmed Hernia, inguinal, right / SNOMED CT 294514757 / Confirmed BPH with urinary obstruction / SNOMED CT 3657293842 / Confirmed Elevated PSA / SNOMED CT 9330812795 / Confirmed Impotence / SNOMED CT 9345008664 / Confirmed Urinary frequency / SNOMED CT 781101917 / Confirmed Nocturia / SNOMED CT 655527260 / Confirmed Weak urinary stream / SNOMED CT 312274554 / Confirmed Gross hematuria / SNOMED CT 439679451 / Confirmed Anticoagulated / SNOMED CT 610941457 / Confirmed Urge incontinence / SNOMED CT 682212941 / Confirmed Chronic prostatitis / SNOMED CT 25995668 / Confirmed Dysuria / SNOMED CT 05685723 / Confirmed Urinary retention / SNOMED CT 441845426 / Confirmed BMI 31.0-31.9,adult / SNOMED CT 033942090 / Confirmed Incomplete bladder emptying / SNOMED CT 604475053 / Confirmed Post-void dribbling / SNOMED CT 888849739 / Confirmed Incontinence without sensory awareness / SNOMED CT 3250109503 / Confirmed At risk for falls / SNOMED CT 130326366 / Possible ED (erectile dysfunction) / SNOMED CT 5543398529 / Confirmed Leaking of urine / SNOMED CT 5257693641 / Confirmed Urinary incontinence / SNOMED CT 8482220887 / Confirmed Prostate cancer screening / SNOMED CT 946971913 / Confirmed Resolved: Hypertension / SNOMED CT 8322177512 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 Normal [facility] Comment on above: Result Comment: Elec tronically Signed By: Sophie SHIPMAN, Stephenie\.br\Date and Time Signed: 01/25/24 13:48 EDT Office/Clinic Note-Physician on 01-25-2024 Office/Clinic Note-Physician [id number]#1.00 TIFF Normal [facility] Patient Correspondenceon Patient Correspondence [id number]#1.00 TIFF Normal [facility] Patient Correspondence [id number]#1.00 TIFF Normal [facility] Patient Correspondence [id number]#1.00 TIFF Normal [facility] Patient History Officeon Patient History Office [id number]#1.00 TIFF Normal [facility] Consent for Procedure/Surger yon 01-09-2024 Consent for Procedure/Surgery [id number]#1.00T IFF Normal [facility] Consent for Treatmenton Consent for Treatment [id number]#1.00T IFF Normal [facility] Discharge Instructionson Discharge Instructions [id number]#1.00T IFF Normal [facility] IntraOperative Documentson 0 01-09-2024 IntraOperative Documents [id number]#1.00T IFF Normal [facility] Main OR Intraoperative Recor don 01-09-2024 Main OR Intraoperative Record IntraOp Document Type FTPM Summary Primary Physician: Bert Huang DO Finalized Date/Time: 01/09/24 11:31:11 Pt. Name: SHENG ROLANDVirginia [place]/Sex: 1945 Male Med Rec #: [id number] Physician: Bert Huang DO Financial #: [id number] Pt. Type: P Room/Bed: / Admit/Disch: 01/09/24 10:24:34 - Institution: Case Times FTPM Entry 1 Patient Times In Room 01/09/24 11:25:00 Out Room 01/09/24 11:31:00 Procedure Times Start 01/09/24 11:28:00 Stop 01/09/24 11:30:00 Anesthesia Times Last Modified By: Savannah Garrett RN 01/09/24 11:31:02 Case Attendance FTPM Entry 1 Entry 2 Entry 3 Case Attendee Bert Huang DO, RN, Savannah Kelly RN, Tomasa Davidsno Role Performed Surgeon - Primary Senior Center Director - Primary Scrub - Primary Time In 01/09/24 11:25:00 01/09/24 11:25:00 01/09/24 11:25:00 Time Out 01/09/24 11:31:00 01/09/24 11:31:00 01/09/24 11:31:00 Procedure SACROILIAC JOINT SACROILIAC JOINT SACROILIAC JOINT INJECTION(Bilateral) INJECTION(Bilateral) INJECTION(Bilateral) Comments Last Modified By: Gerry JENNINGS, Savannah Garrett RN, Savannah Tsai RN 01/09/24 11:31:02 01/09/24 11:31:02 01/09/24 11:31:02 Entry 4 Case Attendee Scott Craig Role Performed Crown Attacher Time In 01/09/24 11:25:00 Time Out 01/09/24 [...] and tissue Entry 1 Skin Integrity Intact, Colburn, Warm, and Skin Abnormality No Dry Outcomes [...] Met? Y (more content not included)... Normal [facility] Main OR Preoperative Recordo n 01-09-2024 Main OR Preoperative Record Holding Area Document Type FTPM Summary Primary Physician: Bert Huang DO Finalized Date/Time: 01/09/24 11:01:07 Pt. Name: RIDGE ROLAND/Sex: 1945 Male Med Rec #: [id number] Physician: Bert Huang DO Financial #: [id number] Pt. Type: P Room/Bed: / Admit/Disch: 01/09/24 [...] By: Anupama Huggins RN 01/09/24 11:01 Normal [facility] Automated epithelial cells c ount in urine sediment (number/area)on 12-24-2023 Epithelial cells Auto (Urine sed) [#/Area] FEW #/LPF NONE/RARE [facility] Automated leukocytes count i n urine sediment (number/area)on 12-24-2023 WBC Auto (Urine sed) [#/Area] NONE SEEN #/HPF 0-2 [facility] Automated urine specific gra vity by refractometryon 12-24-2023 Specific gravity Refractometry automated (U) [Rel density] 1.020 1.005-1.025 [facility] Basophils Auto (Bld) [#/Vol] on 12-24-2023 Basophils (Bld) [#/Vol] 0.0 10 3/uL 0.0-0.1 [facility] Basophils/100 WBC Auto (Bld) on 12-24-2023 Basophils/100 WBC (Bld) 0.4 % 0.2-2.0 [facility] Bilirubin Auto test strip (U ) [Mass/Vol]on 12-24-2023 Bilirubin (U) [Mass/Vol] Negative NEGATIVE [facility] Color Auto (U)on 12-24-2023 Color (U) YELLOW YELLOW [facility] Eosinophils/100 WBC Auto (Bl d)on 12-24-2023 Eosinophils/100 WBC (Bld) 0.9 % 0.9-7.0 [facility] Erythrocyte distribution wid th Auto (RBC) [Ratio]on 12-24-2023 Erythrocyte distribution width (RBC) [Ratio] 13.3 % 11.0-15.0 [facility] Estimated glomerular filtrat ion rate (GFR) non- Americanon 12-24-2023 GFR/1.73 sq M.predicted among non-blacks MDRD (S/P/Bld) [Vol rate/Area] mL/min/{1.73_m2} >=60 [facility] Hematocrit Auto (Bld) [Volum e fraction]on 12-24-2023 Hematocrit (Bld) [Volume fraction] 45.1 % 42.0-54.0 [facility] Hemoglobin [Mass/volume] in Bloodon 12-24-2023 Hemoglobin (Bld) [Mass/Vol] 15.3 g/dL 14.0-18.0 [facility] Ketones Auto test strip (U) [Mass/Vol]on 12-24-2023 Ketones (U) [Mass/Vol] Negative NEGATIVE [facility] Laboratory - Chemistry and C hemistry - challengeon 12-24-2023 Calcium [Mass/Vol] 9.1 mg/dL 8.5-10.1 [facility] Chloride [Moles/Vol] 102 mmol/L 98-107 [facility] CO2 [Moles/Vol] 25.5 mmol/L 21.0-32.0 [facility] Creatinine [Mass/Vol] 0.73 mg/dL 0.70-1.30 [facility] GFR/1.73 sq M.predicted MDRD (S/P/Bld) [Vol rate/Area] mL/min/{1.73_m2} >=60 [facility] Glucose [Mass/Vol] 113 mg/dL 74-106 [facility] Potassium [Moles/Vol] 3.8 mmol/L 3.5-5.1 [facility] Sodium [Moles/Vol] 138 mmol/L 136-145 [facility] Urea nitrogen [Mass/Vol] 13.0 mg/dL 7.0-18.0 [facility] Urea nitrogen/Creatinine [Mass ratio] 17.8 mg/mg [facility] Laboratory - Hematology and Cell countson 12-24-2023 Immature granulocytes/100 WBC (Bld) 0.6 % 0.0-0.5 [facility] Leukocytes [#/volume] correc yina for nucleated erythrocytes in Blood by Automated counon 12-24-2023 WBC corrected for nucl RBC Auto (Bld) [#/Vol] 9.5 10 3/uL 4.0-11.0 [facility] Lymphocytes Auto (Bld) [#/Vo l]on 12-24-2023 Lymphocytes (Bld) [#/Vol] 1.1 10 3/uL 1.2-3.8 [facility] Lymphocytes/100 WBC Auto (Bl d)on 12-24-2023 Lymphocytes/100 WBC (Bld) 11.5 % 20.5-60.0 [facility] MCH Auto (RBC) [Entitic mass ]on 12-24-2023 MCH (RBC) [Entitic mass] 31.2 pg 25.9-34.0 [facility] MCHC Auto (RBC) [Mass/Vol]on 12-24-2023 MCHC (RBC) [Mass/Vol] 33.9 g/dL 29.9-35.2 [facility] MCV Auto (RBC) [Entitic vol] on 12-24-2023 MCV (RBC) [Entitic vol] 92.0 fL 80.0-94.0 [facility] Monocytes Auto (Bld) [#/Vol] on 12-24-2023 Monocytes (Bld) [#/Vol] 0.7 10 3/uL 0.3-0.8 [facility] Monocytes/100 WBC Auto (Bld) on 12-24-2023 Monocytes/100 WBC (Bld) 7.7 % 1.7-12.0 [facility] Mucus LM Ql (Urine sed)on Mucus Ql (Urine sed) SMALL NONE SEEN [facility] Neutrophils Auto (Bld) [#/Vo l]on 12-24-2023 Neutrophils (Bld) [#/Vol] 7.5 10 3/uL 1.4-6.5 [facility] Neutrophils/100 WBC Auto (Bl d)on 12-24-2023 Neutrophils/100 WBC (Bld) 78.9 % 43.0-75.0 [facility] No Panel Informationon 12-24 Eosinophils # (Auto) 0.1 10 3/uL 0.0-0.7 [facility] Immature Granulocyte # (Auto) 0.06 10 3/uL 0.00-0.03 [facility] Platelet mean volume Auto (B ld) [Entitic vol]on 12-24-2023 Platelet mean volume (Bld) [Entitic vol] 10.7 fL 9.5-13.5 [facility] Platelets Auto (Bld) [#/Vol] on 12-24-2023 Platelets (Bld) [#/Vol] 197 10 3/uL 150-450 [facility] Protein Auto test strip (U) [Mass/Vol]on 12-24-2023 Protein (U) [Mass/Vol] Negative NEG/TRACE [facility] RBC Auto (Bld) [#/Vol]on RBC (Bld) [#/Vol] 4.90 10 6/uL 4.70-6.10 [facility] Serum or plasma anion gap de terminationon 12-24-2023 Anion gap [Moles/Vol] 14.3 mmol/L [facility] Specific gravity Auto test s trip (U) [Rel density]on 12-24-2023 Specific gravity (U) [Rel density] CLEAR CLEAR [facility] Urine bacteria detection by automated methodon 12-24-2023 Bacteria Auto Ql (U) NONE SEEN #/HPF NONE SEEN [facility] Urine glucose measurement by test strip (mass/volume)on 12-24-2023 Glucose Test strip (U) [Mass/Vol] Negative NEGATIVE [facility] Urine hemoglobin detection b y automated test stripon 12-24-2023 Hemoglobin Auto test strip Ql (U) Negative NEGATIVE [facility] Urine nitrite detection by a utomated test stripon 12-24-2023 Nitrite Auto test strip Ql (U) Negative NEGATIVE [facility] Urine sediment leukocyte cou nt by microscopy (number/high power field)on 12-24-2023 WBC LM.HPF (Urine sed) [#/Area] NONE SEEN #/HPF NONE SEEN [facility] Urobilinogen Auto test strip (U) [Mass/Vol]on 12-24-2023 Urobilinogen Qn (U) 0.2 {Kathia'U}/dL 0.2-1.0 [facility] pH Auto test strip (U)on pH (U) 6.5 [pH] 5.0-9.0 [facility] Patient Correspondenceon Patient Correspondence [id number]#1.00T IFF Normal [facility] Insurance Correspondence Off iceon 12-17-2023 Insurance Correspondence Office [id number]#2.00 TIFF Normal [facility] Patient Educationon 12-14-19 Patient Education Urology [...] nerve stimulation). ? For women, using a pesticide use medical coordinator to prevent urine leaks. This is a [...] urine. ? (more content not included)... Normal [facility] Urology Office/Clinic Noteon 12-14-2023 Urology Office/Clinic [...] Urology [address], [place] [address]- [phone] Additional Instructions: Patient Education Urinary Incontinence I, [...] guidance (05/01/ (more content not included)... Normal [facility] Comment on above: Result Comment: Elec tronically Signed By: Homero XAVIER MD\.br\Date and Time Signed: 12/14/23 11:03 EST\.br\Electronically Co-Signed By: Lina Perkins\.br\Date and Time Co-Signed: 12/14/23 11:01 EST Consent for Treatmenton Consent for Treatment [id number]#1.00T IFF Normal [facility] Consultation Noteon 12-10-19 Consultation Note Patient: [...] day(s), # 30 tab(s), Refills(s) 6, Pharmacy: [facility]/pharmacy #[id number], 193, cm, 05/29/23 8:59:00 EDT, Height/Length Dosing, 108.9, kg, 03/19/23 8:54:00 EDT, Weight Dosing Viagra 50 mg Tab: See Instructions, 1-2 tab(s) po 1 hr before sexual acitivity. do not exceed 2 tabs in 24 hrs., # 15 tab(s), Refills(s) 3, [id number] 193, cm, 08/31/22 9:11:00 EDT, Height/Length Dosing, 114.5, kg, 08/31/22 9:11:00 EDT, Weight Dosing... pregabalin 25 mg Cap: 25 mg = 1 cap(s), Oral, BID, # 60 cap(s), Refills(s) 2, [id number] 193, cm, 11/09/23 11:29:00 EST, [...] list: All Problems Hypercholesterolemia / SNOMED CT 47527749 / Confirmed Hernia, inguinal, right / SNOMED CT 205890099 / Confirmed BPH with urinary obstruction / SNOMED CT 6551431506 / Confirmed Elevated PSA / SNOMED CT 8511001631 / Confirmed Impotence / SNOMED CT 3413054656 / Confirmed Urinary frequency / SNOMED CT 181453605 / Confirmed Nocturia / SNOMED CT 855519195 / Confirmed Weak urinary stream / SNOMED CT 416334109 / Confirmed Gross hematuria / SNOMED CT 729778435 / Confirmed Anticoagulated / SNOMED CT 830654503 / Confirmed Urge incontinence / SNOMED CT 768903209 / Confirmed Chronic prostatitis / SNOMED CT 34454594 / Confirmed Dysuria / SNOMED CT 30737399 / Confirmed Urinary retention / SNOMED CT 769626191 / Confirmed BMI 31.0-31.9,adult / SNOMED CT 024064574 / Confirmed Incomplete bladder emptying / SNOMED CT 540302379 / Confirmed Post-void dribbling / SNOMED CT 246508695 / Confirmed Incontinence without sensory awareness / SNOMED CT 6330016299 / Confirmed At risk for falls / SNOMED CT 914881224 / Possible ED (erectile dysfunction) / SNOMED CT 7977218168 / Confirmed Leaking of urine / SNOMED CT 6569882493 / Confirmed Urinary incontinence / SNOMED CT 4668464597 / Confirmed Prostate cancer screening / SNOMED CT 386886918 / Confirmed Resolved: Hypertension / SNOMED CT 6346309504 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 Normal [facility] Comment on above: Result Comment: Elec tronically Signed By: Stephenie Barrios PA-C\.br\Date and Time Signed: 12/10/23 12:53 EST\.br\Electronically Co-Signed By: Bert Huang DO.br\Date and Time Co-Signed: 12/11/23 09:21 EST Office/Clinic Note-Physician on 12-10-2023 Office/Clinic Note-Physician [id number]#1.00T IFF Normal [facility] Patient Correspondenceon Patient Correspondence [id number]#1.00T IFF Normal [facility] Patient Correspondence [id number]#1.00T IFF Normal [facility] Patient History Officeon Patient History Office [id number]#1.00T IFF Normal [facility] Consent for Treatmenton Consent for Treatment [id number]#1.00 TIFF Normal [facility] Consultation Noteon 11-09-19 Consultation Note Patient: [...] day(s), # 30 tab(s), Refills(s) 6, [id number], cm, 05/29/23 8:59:00 EDT, Height/Length Dosing, 108.9, kg, 03/19/23 8:54:00 EDT, Weight Dosing Viagra 50 mg Tab: See Instructions, 1-2 tab(s) po 1 hr before sexual acitivity. do not exceed 2 tabs in 24 hrs., # 15 tab(s), Refills(s) 3, Pharmacy: [facility]/pharmacy #[id number], 193, cm, 08/31/22 9:11:00 EDT, Height/Length Dosing, 114.5, kg, 08/31/22 9:11:00 EDT, Weight Dosing... pregabalin 25 mg Cap: 25 mg = 1 cap(s), Oral, BID, # 60 cap(s), Refills(s) 2, [id number] 193, cm, 11/09/23 11:29:00 EST, [...] list: All Problems Hypercholesterolemia / SNOMED CT 35842590 / Confirmed Hernia, inguinal, right / SNOMED CT 179147440 / Confirmed BPH with urinary obstruction / SNOMED CT 1842427540 / Confirmed Elevated PSA / SNOMED CT 7530326679 / Confirmed Impotence / SNOMED CT 6583232759 / Confirmed Urinary frequency / SNOMED CT 160137872 / Confirmed Nocturia / SNOMED CT 820577975 / Confirmed Weak urinary stream / SNOMED CT 518452427 / Confirmed Gross hematuria / SNOMED CT 494634960 / Confirmed Anticoagulated / SNOMED CT 422238743 / Confirmed Urge incontinence / SNOMED CT 499517952 / Confirmed Chronic prostatitis / SNOMED CT 44110723 / Confirmed Dysuria / SNOMED CT 04937203 / Confirmed Urinary retention / SNOMED CT 562128068 / Confirmed BMI 31.0-31.9,adult / SNOMED CT 002111081 / Confirmed Incomplete bladder emptying / SNOMED CT 772992682 / Confirmed Post-void dribbling / SNOMED CT 291619783 / Confirmed Incontinence without sensory awareness / SNOMED CT 0045031341 / Confirmed At risk for falls / SNOMED CT 537317200 / Possible ED (erectile dysfunction) / SNOMED CT 0127966776 / Confirmed Leaking of urine / SNOMED CT 9660209733 / Confirmed Urinary incontinence / SNOMED CT 7688714893 / Confirmed Prostate cancer screening / SNOMED CT 275127597 / Confirmed Resolved: Hypertension / SNOMED CT 6544759294 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 Injection sites well-healed Neurologic: Alert, Oriented. Psychiatric: Cooperative, Appropriate mood & affect. Impression and Plan Patient is a 78-year-old male with a past medical history significant for postlaminectomy syndrome, chronic pain, and lumbar spondylosis (more content not included)... Normal [facility] Comment on above: Result Comment: Elec tronically Signed By: Sophie SHIPMAN, Stephenie\.br\Date and Time Signed: 11/09/23 11:45 EST Legal Correspondence Officeo n 11-09-2023 Legal Correspondence Office [id number]#1.00 TIFF Normal [facility] Office/Clinic Note-Physician on 11-09-2023 Office/Clinic Note-Physician [id number]#1.00 TIFF Normal [facility] Patient Correspondenceon Patient Correspondence [id number]#1.00 TIFF Normal [facility] Patient Correspondence [id number]#1.00 TIFF Normal [facility] Patient Correspondence [id number]#1.00 TIFF Normal [facility] Patient Correspondence [id number]#1.00 TIFF Normal [facility] Patient History Officeon Patient History Office [id number]#1.00 TIFF Normal [facility] Consent for Procedure/Surger yon 10-08-2023 Consent for Procedure/Surgery [id number]#1.00 TIFF Normal [facility] Consent for Treatmenton Consent for Treatment [id number]#1.00 TIFF Normal [facility] Discharge Instructionson Discharge Instructions [id number]#1.00 TIFF Normal [facility] IntraOperative Documentson 1 12-09-2022 IntraOperative Documents [id number]#1.00 TIFF Normal [facility] Main OR Intraoperative Recor don 10-08-2023 Main OR Intraoperative Record IntraOp Document Type FTPM Summary Primary Physician: Bib Sanchez MD Finalized Date/Time: 10/08/23 08:08:45 Pt. Name: RIDGE ROLAND John SortoB./Sex: 1945 Male Med Rec #: [id number] Physician: Bib Sanchez MD Financial #: [id number] Pt. Type: P Room/Bed: / Admit/Disch: 10/08/23 [...] Savannah Ceballos Role Performed Surgeon - Primary Senior Center Director - Primary Scrub - Primary Time In 10/08/23 07:54:00 10/08/23 07:54:00 10/08/23 07:54:00 Time Out 10/08/23 08:09:00 10/08/23 08:09:00 10/08/23 08:09:00 Procedure LUMBAR RADIO FREQUENCY LUMBAR RADIO FREQUENCY LUMBAR RADIO FREQUENCY ABLATION(Bilateral) ABLATION(Bilateral) ABLATION(Bilateral) Comments Last Modified By: Robin JENNINGS, Tomasa Kelly RN, Tomasa Alexander RN 10/08/23 08:08:31 10/08/23 08:08:31 10/08/23 08:08:31 Entry 4 Case Attendee Soni CHAUDHARY)Adry Role Performed Crown Attacher Time In 10/08/23 07:54:00 Time Out 10/08/23 [...] and tissue Entry 1 Skin Integrity Intact, Colburn, Warm, and Skin Abnormality No Dry Outcomes [...] By Neto (more content not included)... Normal [facility] Main OR Preoperative Recordo n 10-08-2023 Main OR Preoperative Record Holding Area Document Type FTPM Summary Primary Physician: Bib Sanchez MD Finalized Date/Time: 10/08/23 07:19:53 Pt. Name: RIDGE ROLAND D.O.B./Sex: 1945 Male Med Rec #: [id number] Physician: Bib Sanchez MD Financial #: [id number] Pt. Type: P Room/Bed: / Admit/Disch: 10/08/23 [...] By: Sneha Beal RN 10/08/23 07:19 Normal [facility] Operative Reporton 3 Operative Report Patient: [...] side with the identical technique and medications. [place] were removed and bandages applied. The patient [...] EST Respiratory Rate 15 br/min . Normal [facility] Comment on above: Result Comment: Elec tronically Signed By: Fabi WALTERS, Bib Jackson\.br\Date and Time Signed: 10/08/23 08:08 EST Patient Correspondenceon Patient Correspondence [id number]#1.00T IFF [facility] Insurance Correspondence Off iceon 09-21-2023 Insurance Correspondence Office [id number]#2.00 TIFF [facility] Consent for Treatmenton 09-05 Consent for Treatment [id number]#1.00 TIFF [facility] Consultation Noteon 09-14-20 Consultation Note Patient: KEILA [...] day(s), # 30 tab(s), Refills(s) 6, Pharmacy: [facility]/pharmacy #[id number], 193, cm, 05/29/23 8:59:00 EDT, Height/Length Dosing, 108.9, kg, 03/19/23 8:54:00 EDT, Weight Dosing Viagra 50 mg Tab: See Instructions, 1-2 tab(s) po 1 hr before sexual acitivity. do not exceed 2 tabs in 24 hrs., # 15 tab(s), Refills(s) 3, Pharmacy: [facility]/pharmacy #[id number], 193, cm, 08/31/22 9:11:00 EDT, Height/Length [...] list: All Problems Hypercholesterolemia / SNOMED CT 65000808 / Confirmed Hernia, inguinal, right / SNOMED CT 296324747 / Confirmed BPH with urinary obstruction / SNOMED CT 9030279202 / Confirmed Elevated PSA / SNOMED CT 5080513896 / Confirmed Impotence / SNOMED CT 2713238617 / Confirmed Urinary frequency / SNOMED CT 318902677 / Confirmed Nocturia / SNOMED CT 518700386 / Confirmed Weak urinary stream / SNOMED CT 244804894 / Confirmed Gross hematuria / SNOMED CT 668197045 / Confirmed Anticoagulated / SNOMED CT 313055436 / Confirmed Urge incontinence / SNOMED CT 579606237 / Confirmed Chronic prostatitis / SNOMED CT 75617558 / Confirmed Dysuria / SNOMED CT 01761000 / Confirmed Urinary retention / SNOMED CT 217660835 / Confirmed BMI 31.0-31.9,adult / SNOMED CT 967542677 / Confirmed Incomplete bladder emptying / SNOMED CT 489159592 / Confirmed Post-void dribbling / SNOMED CT 580821446 / Confirmed Incontinence without sensory awareness / SNOMED CT 1259638480 / Confirmed At risk for falls / SNOMED CT 981366347 / Possible ED (erectile dysfunction) / SNOMED CT 6241557087 / Confirmed Leaking of urine / SNOMED CT 7041955899 / Confirmed Urinary incontinence / SNOMED CT 1286461385 / Confirmed Prostate cancer screening / SNOMED CT 327893683 / Confirmed Resolved: Hypertension / SNOMED CT 1429935657 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 Injection site well-healed Neurologic: Alert, Oriented. Psychiatric: Cooperative, Appropriate mood & affect. Results Review Lumbar MRI report once again reviewed Impression and Plan Patient is a 77-year-old male with a past medical history significant cannot for lumbar spondylosis, postlaminectomy syndrome, and chronic low back pain. Patient underwent his second bilateral L3-4 and L4-5 facet med (more content not included)... Normal [facility] Comment on above: Result Comment: Elec tronically Signed By: Stephenie Barrios PA-C\.br\Date and Time Signed: 09/14/23 08:14 EST\.br\Electronically Co-Signed By: Bib Sanchez MD\.br\Date and Time Co-Signed: 09/24/23 12:00 EST Office/Clinic Note-Physician on 09-14-2023 Office/Clinic Note-Physician [id number]#1.00 TIFF Normal [facility] Patient Correspondenceon Patient Correspondence [id number]#1.00 TIFF Normal [facility] Patient Correspondence [id number]#1.00 TIFF Normal [facility] Patient Correspondence [id number]#1.00 TIFF Normal [facility] Patient History Officeon Patient History Office [id number]#1.00 TIFF Normal [facility] Consent for Procedure/Surger yon 09-04-2023 Consent for Procedure/Surgery [id number]#1.00 TIFF Normal [facility] Consent for Treatmenton 10-3 Consent for Treatment [id number]#1.00 TIFF Normal [facility] Discharge Instructionson Discharge Instructions [id number]#1.00 TIFF Normal [facility] IntraOperative Documentson 1 IntraOperative Documents [id number]#1.00 TIFF Normal [facility] Main OR Intraoperative Recor don 09-04-2023 Main OR Intraoperative Record IntraOp Document Type FTPM Summary Primary Physician: Bib Sanchez MD Finalized Date/Time: 09/04/23 10:36:25 Pt. Name: ASUNCION RIDGE John Sands/Sex: 1945 Male Med Rec #: [id number] Physician: Bib Sanchez MD Financial #: [id number] Pt. Type: P Room/Bed: / Admit/Disch: 09/04/23 09:32:42 - Institution: Case Times FTPM Entry 1 Patient Times In Room 09/04/23 10:30:00 Out Room 09/04/23 10:37:00 Procedure Times Start 09/04/23 10:33:00 Stop 09/04/23 10:36:00 Anesthesia Times Last Modified By: Robin JENNINGS, Tomasa Davidson 09/04/23 10:36:09 Case Attendance FTPM Entry 1 Entry 2 Entry 3 Case Attendee Fabi WALTERS, Bib Kelly RN, Tomasa Garrett RN, [facility] Role Performed Surgeon - Primary Senior Center Director - Primary Scrub - Primary Time In 09/04/23 10:30:00 09/04/23 10:30:00 09/04/23 10:30:00 Time Out 09/04/23 10:37:00 09/04/23 10:37:00 09/04/23 10:37:00 Procedure MEDIAL BRANCH MEDIAL BRANCH MEDIAL BRANCH BLOCK(Bilateral) BLOCK(Bilateral) BLOCK(Bilateral) Comments Last Modified By: Tomasa Kelly RN, RN, Kayla J Roderick RN, Kayla J 09/04/23 10:36:10 09/04/23 10:36:10 09/04/23 10:36:10 Entry 4 Case Attendee Scott Craig Role Performed Crown Attacher Time In 09/04/23 10:30:00 Time Out 09/04/23 [...] L4/5 MBB Primary Procedure Yes Primary Surgeon iBb Sanchez MD Start 09/04/23 10:33:00 Stop 09/04/23 [...] and tissue Entry 1 Skin Integrity Intact, Colburn, Warm, and Skin Abnormality No Dry Outcomes [...] 10:31:36 Post-Car (more content not included)... Normal [facility] Main OR Preoperative Recordo n 09-04-2023 Main OR Preoperative Record Holding Area Document Type FTPM Summary Primary Physician: Bib Sanchez MD Finalized Date/Time: 09/04/23 10:17:31 Pt. Name: RIDGE ROLAND /Sex: 1945 Male Med Rec #: [id number] Physician: Bib Sanchez MD Financial #: [id number] Pt. Type: P Room/Bed: / Admit/Disch: 09/04/23 [...] By: Sharee Dominguez RN 09/04/23 10:17 Normal [facility] Operative Reporton 3 Operative Report Patient: [...] EDT Respiratory Rate 16 br/min . Normal [facility] Comment on above: Result Comment: Elec tronically Signed By: Bib Sanchez MD\.br\Date and Time Signed: 09/04/23 10:36 EDT Consent for Treatmenton 08-06 Consent for Treatment [id number]#1.00T IFF Normal [facility] Consultation Noteon 08-28-20 Consultation Note Patient: [...] day(s), # 30 tab(s), Refills(s) 6, Pharmacy: [facility]/pharmacy #[id number], 193, cm, 05/29/23 8:59:00 EDT, Height/Length Dosing, 108.9, kg, 03/19/23 8:54:00 EDT, Weight Dosing Viagra 50 mg Tab: See Instructions, 1-2 tab(s) po 1 hr before sexual acitivity. do not exceed 2 tabs in 24 hrs., # 15 tab(s), Refills(s) 3, Pharmacy: [facility]/pharmacy #[id number], 193, cm, 08/31/22 9:11:00 EDT, Height/Length [...] list: All Problems Anticoagulated / SNOMED CT 367890592 / Confirmed At risk for falls / SNOMED CT 245243184 / Possible BMI 31.0-31.9,adult / SNOMED CT 318764404 / Confirmed BPH with urinary obstruction / SNOMED CT 4821969767 / Confirmed Chronic prostatitis / SNOMED CT 50419619 / Confirmed Dysuria / SNOMED CT 81876263 / Confirmed ED (erectile dysfunction) / SNOMED CT 0086161904 / Confirmed Elevated PSA / SNOMED CT 8847605703 / Confirmed Gross hematuria / SNOMED CT 387440769 / Confirmed Hernia, inguinal, right / SNOMED CT 514564265 / Confirmed Hypercholesterolemia / SNOMED CT 55099633 / Confirmed Impotence / SNOMED CT 6397037605 / Confirmed Incomplete bladder emptying / SNOMED CT 985210008 / Confirmed Incontinence without sensory awareness / SNOMED CT 7730070617 / Confirmed Leaking of urine / SNOMED CT 1776141252 / Confirmed Nocturia / SNOMED CT 028498582 / Confirmed Post-void dribbling / SNOMED CT 249175342 / Confirmed Prostate cancer screening / SNOMED CT 163418458 / Confirmed Urge incontinence / SNOMED CT 454981978 / Confirmed Urinary frequency / SNOMED CT 336315053 / Confirmed Urinary incontinence / SNOMED CT 6233261489 / Confirmed Urinary retention / SNOMED CT 943125789 / Confirmed Weak urinary stream / SNOMED CT 990162111 / Confirmed Objective Vital Signs 08/28/2023 7:51 [...] Plan to follow-up (more content not included)... [facility] Comment on above: Result Comment: Elec tronically Signed By: Fabi WALTERS, Bib Jackson\.br\Date and Time Signed: 08/28/23 08:26 EDT Insurance Correspondence Off iceon 08-28-2023 Insurance Correspondence Office [id number]#1.00T IFF [facility] Office/Clinic Note-Physician on 08-28-2023 Office/Clinic Note-Physician [id number]#1.00 TIFF Normal [facility] Patient Correspondenceon Patient Correspondence [id number]#1.00 TIFF [facility] Patient Correspondence [id number]#1.00 TIFF [facility] Patient Correspondence [id number]#1.00 TIFF [facility] Patient Correspondence [id number]#1.00 TIFF [facility] Patient History Officeon Patient History Office [id number]#1.00 TIFF [facility] Consent for Procedure/Surger yon 08-07-2023 Consent for Procedure/Surgery [id number]#1.00 CD:127 [facility] Consent for Treatmenton Consent for Treatment [id number]#1.00 CD:127 [facility] Discharge Instructionson Discharge Instructions [id number]#1.00 CD:127 [facility] IntraOperative Documentson IntraOperative Documents [id number]#1.00 CD:127 [facility] Main OR Intraoperative Recor don 08-07-2023 Main OR Intraoperative Record IntraOp Document Type FTPM Summary Primary Physician: Bib Sanchez MD Finalized Date/Time: 08/07/23 13:22:25 Pt. Name: RIDGE ROLAND D.O.B./Sex: 1945 Male Med Rec #: [id number] Physician: Bib Sanchez MD Financial #: [id number] Pt. Type: P Room/Bed: / Admit/Disch: 08/07/23 12:06:33 - Institution: Case Times FTPM Entry 1 Patient Times In Room 08/07/23 13:16:00 Out Room 08/07/23 13:23:00 Procedure Times Start 08/07/23 13:19:00 Stop 08/07/23 13:22:00 Anesthesia Times Last Modified By: Robin JENNINGS, Tomasa Davidson 08/07/23 13:22:17 Case Attendance FTPM Entry 1 Entry 2 Entry 3 Case Attendee Bib Snachez MD, RN, Tomasa Garrett RN, Savannah Lin Role Performed Surgeon - Primary Senior Center Director - Primary Scrub - Primary Time In 08/07/23 13:16:00 08/07/23 13:16:00 08/07/23 13:16:00 Time Out 08/07/23 13:23:00 08/07/23 13:23:00 08/07/23 13:23:00 Procedure MEDIAL BRANCH MEDIAL BRANCH MEDIAL BRANCH BLOCK(Bilateral) BLOCK(Bilateral) BLOCK(Bilateral) Comments Last Modified By: Tomasa Kelly RN, RN, Tomasa Alexander RN 08/07/23 13:22:18 08/07/23 13:22:18 08/07/23 13:22:18 Entry 4 Case Attendee Donna Hall Role Performed Crown Attacher Time In 08/07/23 13:16:00 Time Out 08/07/23 [...] and tissue Entry 1 Skin Integrity Intact, [place], Warm, and Skin Abnormality No Dry Outcomes [...] Text: The (more content not included)... Normal [facility] Main OR Preoperative Recordo n 08-07-2023 Main OR Preoperative Record Holding Area Document Type FTPM Summary Primary Physician: Bib Sanchez MD Finalized Date/Time: 08/07/23 12:40:14 Pt. Name: RIDGE ROLAND /Sex: 1945 Male Med Rec #: [id number] Physician: Bib Sanchez MD Financial #: [id number] Pt. Type: P Room/Bed: / Admit/Disch: 08/07/23 [...] By: Sharee Dominguez RN 08/07/23 12:40 Normal [facility] Operative Reporton 3 Operative Report Patient: [...] EDT Respiratory Rate 14 br/min . Normal [facility] Comment on above: Result Comment: Elec tronically Signed By: Bib Sanchez MD\.br\Date and Time Signed: 08/07/23 13:35 EDT Patient Correspondenceon Patient Correspondence [id number]#1.00 CD:127 Normal [facility] Insurance Correspondence Off iceon 07-11-2023 Insurance Correspondence Office [id number]#2.00 CD:127 Normal [facility] Consent for Treatmenton 06-05 Consent for Treatment [id number]#1.00 CD:127 Normal [facility] Consultation Noteon 06-18-20 Consultation Note Patient: [...] day(s), # 30 tab(s), Refills(s) 6, Pharmacy: [facility]/pharmacy #[id number], 193, cm, 05/29/23 8:59:00 EDT, Height/Length Dosing, 108.9, kg, 03/19/23 8:54:00 EDT, Weight Dosing Viagra 50 mg Tab: See Instructions, 1-2 tab(s) po 1 hr before sexual acitivity. do not exceed 2 tabs in 24 hrs., # 15 tab(s), Refills(s) 3, Pharmacy: [facility]/pharmacy #[id number], 193, cm, 08/31/22 9:11:00 EDT, Height/Length [...] list: All Problems Anticoagulated / SNOMED CT 013609484 / Confirmed At risk for falls / SNOMED CT 544361774 / Possible BMI 31.0-31.9,adult / SNOMED CT 537962825 / Confirmed BPH with urinary obstruction / SNOMED CT 3850616398 / Confirmed Chronic prostatitis / SNOMED CT 52849511 / Confirmed Dysuria / SNOMED CT 21496727 / Confirmed ED (erectile dysfunction) / SNOMED CT 3997960012 / Confirmed Elevated PSA / SNOMED CT 5462985487 / Confirmed Gross hematuria / SNOMED CT 329385247 / Confirmed Hernia, inguinal, right / SNOMED CT 807732229 / Confirmed Hypercholesterolemia / SNOMED CT 30791492 / Confirmed Impotence / SNOMED CT 5186570214 / Confirmed Incomplete bladder emptying / SNOMED CT 133343446 / Confirmed Incontinence without sensory awareness / SNOMED CT 8585263356 / Confirmed Leaking of urine / SNOMED CT 3338822675 / Confirmed Nocturia / SNOMED CT 636710673 / Confirmed Post-void dribbling / SNOMED CT 275714627 / Confirmed Prostate cancer screening / SNOMED CT 458221848 / Confirmed Urge incontinence / SNOMED CT 404912296 / Confirmed Urinary frequency / SNOMED CT 254314429 / Confirmed Urinary incontinence / SNOMED CT 0844825757 / Confirmed Urinary retention / SNOMED CT 035991960 / Confirmed Weak urinary stream / SNOMED CT 294792009 / Confirmed Objective Vital Signs 06/18/2023 10:00 [...] options include (more content not included)... Normal [facility] Comment on above: Result Comment: Elec tronically Signed By: Fabi WALTERS, Bib Jackson\.br\Date and Time Signed: 06/18/23 10:46 EDT Office/Clinic Note-Physician on 06-18-2023 Office/Clinic Note-Physician [id number]#1.00 CD:127 [facility] Patient Correspondenceon Patient Correspondence [id number]#1.00 CD:127 Normal [facility] Patient Correspondence [id number]#1.00 CD:127 [facility] Patient History Officeon Patient History Office [id number]#1.00 CD:127 [facility] Consent for Procedure/Surger yon 05-29-2023 Consent for Procedure/Surgery [id number]#1.00 CD:127 [facility] Consent for Treatmenton 05-06 Consent for Treatment [id number]#1.00C D:127 [facility] Discharge Instructionson Discharge Instructions [id number]#1.00 CD:127 [facility] IntraOperative Documentson 0 05-29-2023 IntraOperative Documents [id number]#1.00 CD:127 [facility] Main OR Intraoperative Recor don 05-29-2023 Main OR Intraoperative Record IntraOp Document Type FTPM Summary Primary Physician: Bib Sanchez MD Finalized Date/Time: 05/29/23 09:35:05 Pt. Name: RIDGE ROLAND/Sex: 1945 Male Med Rec #: [id number] Physician: Bib Sanchez MD Financial #: [id number] Pt. Type: P Room/Bed: / Admit/Disch: 05/29/23 [...] Performed Surgeon - Primary Scrub - Primary Senior Center Director - Primary Time In 05/29/23 09:27:00 05/29/23 09:27:00 05/29/23 09:27:00 Time Out 05/29/23 09:34:00 05/29/23 09:34:00 05/29/23 09:34:00 Procedure CAUDAL EPIDURAL STEROID CAUDAL EPIDURAL STEROID CAUDAL EPIDURAL STEROID INJECTION(.) INJECTION(.) INJECTION(.) Comments Last Modified By: Sharee Dominguez RN 05/29/23 Sharee Dominguez RN 05/29/23 Sharee Dominguez RN 05/29/23 09:33:49 09:33:49 09:33:49 Entry 4 Case Attendee Soni MCNULTY(R)Adry Role Performed Crown Attacher Time In 05/29/23 09:27:00 Time Out 05/29/23 [...] and tissue Entry 1 Skin Integrity Intact, Colburn, Warm, and Skin Abnormality No Dry Outcomes [...] is fr (more content not included)... Normal [facility] Main OR Preoperative Recordo n 05-29-2023 Main OR Preoperative Record Holding Area Document Type FTPM Summary Primary Physician: Bib Sanchez MD Finalized Date/Time: 05/29/23 09:03:38 Pt. Name: RIDGE ROLAND John /Sex: 1945 Male Med Rec #: [id number] Physician: Bib Sanchez MD Financial #: [id number] Pt. Type: P Room/Bed: / Admit/Disch: 05/29/23 [...] Signed By: Azra Alberto RN 05/29/23 09:03 [facility] Operative Reporton Operative Report Patient: KEILA ROLAND [...] Arterial Pressure, Monitered 120 mmHg . Normal [facility] Comment on above: Result Comment: Elec tronically Signed By: Fabi WALTERS, Bib Jackson\.br\Date and Time Signed: 05/29/23 09:34 EDT Insurance Correspondence Off iceon 05-16-2023 Insurance Correspondence Office [id number]#1.00C D:127 Normal [facility] Patient Correspondenceon Patient Correspondence [id number]#1.00 CD:127 Normal [facility] Consent for Treatmenton Consent for Treatment [id number]#1.00 CD:127 Normal [facility] Consultation Noteon 05-11-20 Consultation Note Patient: [...] day(s), # 30 tab(s), Refills(s) 6, [id number] 193, cm, 11/28/22 9:02:00 EST, Height/Length Dosing, 114.5, kg, 11/28/22 9:02:00 EST, Weight Dosing Viagra 50 mg Tab: See Instructions, 1-2 tab(s) po 1 hr before sexual acitivity. do not exceed 2 tabs in 24 hrs., # 15 tab(s), Refills(s) 3, Pharmacy: [facility]/pharmacy #[id number], 193, cm, 08/31/22 9:11:00 EDT, Height/Length Dosing, 114.5, kg, 08/31/22 9:11:00 EDT, Weight Dosing... pregabalin 25 mg Cap: 25 mg = 1 cap(s), Oral, BID, X 30 day(s), # 60 cap(s), Refills(s) 0, Pharmacy: [facility]/pharmacy #[id number], 193, cm, 03/19/23 8:54:00 EDT, Height/Length [...] list: All Problems Hypercholesterolemia / SNOMED CT 52029795 / Confirmed Hernia, inguinal, right / SNOMED CT 511180183 / Confirmed BPH with urinary obstruction / SNOMED CT 9920744362 / Confirmed Elevated PSA / SNOMED CT 1724386229 / Confirmed Impotence / SNOMED CT 9106130850 / Confirmed Urinary frequency / SNOMED CT 822022141 / Confirmed Nocturia / SNOMED CT 701912703 / Confirmed Weak urinary stream / SNOMED CT 299250795 / Confirmed Gross hematuria / SNOMED CT 316269281 / Confirmed Anticoagulated / SNOMED CT 776221245 / Confirmed Urge incontinence / SNOMED CT 624358780 / Confirmed Chronic prostatitis / SNOMED CT 62715404 / Confirmed Dysuria / SNOMED CT 98726086 / Confirmed Urinary retention / SNOMED CT 708424246 / Confirmed BMI 31.0-31.9,adult / SNOMED CT 359596608 / Confirmed Incomplete bladder emptying / SNOMED CT 080335131 / Confirmed Post-void dribbling / SNOMED CT 742048204 / Confirmed Incontinence without sensory awareness / SNOMED CT 1679772534 / Confirmed At risk for falls / SNOMED CT 909385657 / Possible ED (erectile dysfunction) / SNOMED CT 2956132019 / Confirmed Leaking of urine / SNOMED CT 7823794149 / Confirmed Urinary incontinence / SNOMED CT 2343435646 / Confirmed Prostate cancer screening / SNOMED CT 920721197 / Confirmed Resolved: Hypertension / SNOMED CT 4467025749 Resolved: Stricture of membranous urethra (more content not included)...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 mmol/L Low 98-107 [facility] CO2 25 mmol/L Normal 22-29 [facility] Creatinine 0.76 mg/dL Normal 0.70-1.20 [facility] eGFR (black) mL/min/{1.73_m2} Normal >60 [facility] Comment on above: Result Comment: >60 mL/min/1.73m2 EGFR, calc. for ages 18 and older using theMDRD formula (not corrected for weight), is valid for stablerenal function. eGFR (MDRD) mL/min/{1.73_m2} Normal >60 [facility] Comment on above: Result Comment: >60 mL/min/1.73m2 EGFR, calc. for ages 18 and older using theMDRD formula (not corrected for weight), is valid for stablerenal function. Glucose mass conc 173 mg/dL Critically high 74-109 [facility] Potassium molar conc 3.7 mmol/L Normal 3.5-5.1 [facility] Sodium 133 mmol/L Normal 132-144 [facility] Urea nitrogen 13 mg/dL Normal 8-23 [facility] CBC With Platelet and Differ entialon 04-12-2018 Basophils Auto #/vol (Bld) 0.0 10*3/uL Normal 0.0-0.2 [facility] Basophils/100 WBC Auto (Bld) 0.1 % Normal [facility] Eosinophils 0.0 10*3/uL Normal 0.0-0.7 [facility] Eosinophils/100 leukocytes 0.0 % Normal [facility] Erythrocyte distribution width Auto Ratio (RBC) 13.7 % Normal 11.5-14.5 [facility] Erythrocytes (RBC) 4.62 10*6/uL Low 4.70-6.10 [facility] Hematocrit (HCT) 42.3 % Normal 42.0-52.0 [facility] Hemoglobin mass conc (Bld) 14.1 g/dL Normal 14.0-18.0 [facility] Lymphocytes 0.8 10*3/uL Low 1.0-4.8 [facility] Lymphocytes/100 leukocytes 4.8 % Normal [facility] MCH 30.4 pg Normal 27.0-31.3 [facility] MCHC mass conc (RBC) 33.2 % Normal 33.0-37.0 [facility] MCV 91.6 fL Normal 80.0-100.0 [facility] Monocytes 0.9 10*3/uL Critically high 0.2-0.8 [facility] Monocytes/100 leukocytes 5.4 % Normal [facility] Neutrophils 14.6 10*3/uL Critically high 1.4-6.5 [facility] Neutrophils/100 leukocytes 89.7 % Normal [facility] Platelets 194 10*3/uL Normal 130-400 [facility] WBC (Leukocytes) 16.2 10*3/uL Critically high 4.8-10.8 [facility] XR LUMBAR SPINE (2-3 VIEWS)o n 04-12-2018 [...] by:NATALIA Bravoigned by:Nicky Snow MD6/8/18Final result Normal [facility] Basic Metabolic Panel Reflex Mgon 04-11-2018 Anion gap 14 mmol/L Critically high 7-13 [facility] Calcium 9.5 mg/dL Normal 8.6-10.2 [facility] Chloride 100 mmol/L Normal 98-107 [facility] CO2 25 mmol/L Normal 22-29 [facility] Creatinine 0.85 mg/dL Normal 0.70-1.20 [facility] eGFR (black) mL/min/{1.73_m2} Normal >60 [facility] Comment on above: Result Comment: >60 mL/min/1.73m2 EGFR, calc. for ages 18 and older using theMDRD formula (not corrected for weight), is valid for stablerenal function. eGFR (MDRD) mL/min/{1.73_m2} Normal >60 [facility] Comment on above: Result Comment: >60 mL/min/1.73m2 EGFR, calc. for ages 18 and older using theMDRD formula (not corrected for weight), is valid for stablerenal function. Glucose mass conc 154 mg/dL Critically high 74-109 [facility] Potassium molar conc 3.9 mmol/L Normal 3.5-5.1 [facility] Sodium 139 mmol/L Normal 132-144 [facility] Urea nitrogen 15 mg/dL Normal 8-23 [facility] CBC With Platelet No Differe ntialon 04-11-2018 Erythrocyte distribution width Auto Ratio (RBC) 13.8 % Normal 11.5-14.5 [facility] Erythrocytes (RBC) 5.00 10*6/uL Normal 4.70-6.10 [facility] Hematocrit (HCT) 46.0 % Normal 42.0-52.0 [facility] Hemoglobin mass conc (Bld) 15.4 g/dL Normal 14.0-18.0 [facility] MCH 30.7 pg Normal 27.0-31.3 [facility] MCHC mass conc (RBC) 33.4 % Normal 33.0-37.0 [facility] MCV 92.0 fL Normal 80.0-100.0 [facility] Platelets 192 10*3/uL Normal 130-400 [facility] WBC (Leukocytes) 10.0 10*3/uL Normal 4.8-10.8 [facility] FLUORO FOR SURGICAL PROCEDUR ESon 04-11-2018 FLUORO [...] by:NATALIA Gomesigned by:Kirk Velez MD04/11/18inal result Normal [facility] Surgical Specimenon 04-11-20 Surgical Specimen Invalid Interpretation Code [facility] Comment on above: Result Comment: [place] [id number] QQHIH SURGICAL PATHOLOGY REPORTPatient Name: RIDGE ROLAND Accession No: [id number] Age Sex: 1945 Location: [place] [id number] No: [id number] Collected: 04/11/2018Med Rec No: [id number] Received: 04/12/2018Attend Phys: ANNMARIE SMITA Completed: 04/16/2018Perform [...] cm.Sectioned and submitted entirely, one cassette. ALDWA/SCDANCPT: [id number] Z0XCLUOCURTIS RIVERS M.D. 04/16/2018 Electronically signed out by Page 1 of 1 Basic Metabolic Panelon 06-0 Anion gap 15 mmol/L Critically high 7-13 [facility] Calcium 9.4 mg/dL Normal 8.6-10.2 [facility] Chloride 98 mmol/L Normal 98-107 [facility] CO2 28 mmol/L Normal 22-29 [facility] Creatinine 0.70 mg/dL Normal 0.70-1.20 [facility] eGFR (black) mL/min/{1.73_m2} Normal >60 [facility] Comment on above: Result Comment: >60 mL/min/1.73m2 EGFR, calc. for ages 18 and older using theMDRD formula (not corrected for weight), is valid for stablerenal function. eGFR (MDRD) mL/min/{1.73_m2} Normal >60 [facility] Comment on above: Result Comment: >60 mL/min/1.73m2 EGFR, calc. for ages 18 and older using theMDRD formula (not corrected for weight), is valid for stablerenal function. Glucose mass conc 105 mg/dL Normal 74-109 [facility] Potassium molar conc 3.7 mmol/L Normal 3.5-5.1 [facility] Sodium 141 mmol/L Normal 132-144 [facility] Urea nitrogen 14 mg/dL Normal 8-23 [facility] CBC With Platelet No Differe ntialon 04-10-2018 Erythrocyte distribution width Auto Ratio (RBC) 14.2 % Normal 11.5-14.5 [facility] Erythrocytes (RBC) 5.34 10*6/uL Normal 4.70-6.10 [facility] Hematocrit (HCT) 49.2 % Normal 42.0-52.0 [facility] Hemoglobin mass conc (Bld) 16.5 g/dL Normal 14.0-18.0 [facility] MCH 30.9 pg Normal 27.0-31.3 [facility] MCHC mass conc (RBC) 33.6 % Normal 33.0-37.0 [facility] MCV 92.1 fL Normal 80.0-100.0 [facility] Platelets 206 10*3/uL Normal 130-400 [facility] WBC (Leukocytes) 6.8 10*3/uL Normal 4.8-10.8 [facility] Culture, MRSA Screenon 04-10 Culture, MRSA Screen ORDERED BY: DANIELLA EUCEDA: Nares Nose COLLECTED: 04/10/18 12:58ANTIBIOTICS AT JULI.: RECEIVED : 04/10/18 12:58Culture, MRSA Screen FINAL 04/11/18 11:22 No MRSA isolated Normal [facility] Prothrombin Timeon 8 INR Coag RelTime (PPP) 1.0 {INR} Normal [facility] Comment on above: Result Comment: Anastacio mmended [...] Coag time (PPP) 10.7 s Normal 9.6-12.3 [facility] Type and Screen Capture 3 sc rn cellon 04-10-2018 Bilirubin (total) PATIENT: ASUNCION Coleman LOC: [place] BILL# : [id number] : 1945 SEX: MORDERED BY: KINSEY Underwood ORDERED : 04/10/2018 11:35 COLLECTED: 04/10/2018 13:00ORDER : [id number] RECEIVED : 04/10/2018 13:00 TEST NAME RESULT UNITS RANGES ABN FL STABORH Capture A POS FAntibody 3 Cell Scrn Captu NEG F --------- Normal [facility] Urinalysis, reflex to cultur aj 04-10-2018 Bilirubin Ql (U) Negative Normal Negative [facility] Urine Reflexed to Culture Not Indicated Normal [facility] Urine, clarity Clear Normal Clear [facility] Urine, color Yellow Normal Straw/Weakley [facility] Urine, glucose presence Negative Normal Negative [facility] Urine, hemoglobin presence Negative Normal Negative [facility] Urine, ketones presence Negative Normal Negative [facility] Urine, leukocyte esterase presence Negative Normal Negative [facility] Urine, nitrite presence Negative Normal Negative [facility] Urine, pH 5.5 [pH] Normal 5.0-9.0 [facility] Urine, protein presence Negative Normal Negative [facility] Urine, specific gravity 1.009 Normal 1.005-1.03 [facility] Urine, urobilinogen 0.2 {Kathia'U}/dL Normal < 2.0 [facility] XR SPINE ENTIRE (2-3 VIEWS)o n 04-10-2018 [...] by:NATALIA Oliverigned by:Devang Scott MD04/10/18Final result Normal [facility] Vital Signs Date Time Vital Sign Value Performing Clinician Facility 04-28-2024 10:15-0400 Body height 193.04 cm [facility] 04-28-2024 10:15-0400 Body mass index (BMI) [Ratio] 28.6 kg/m2 [facility] 04-28-2024 10:15-0400 Body weight 106.65 kg [facility] 04-28-2024 10:15-0400 Diastolic blood pressure 79 mm[Hg] [facility] 04-28-2024 10:15-0400 Heart rate 73 /min [facility] 04-28-2024 10:15-0400 Respiratory rate 12 /min [facility] 04-28-2024 10:15-0400 Systolic blood pressure 142 mm[Hg] [facility] 03-14-2024 09:47-0400 Diastolic blood pressure 74 mm[Hg] Stephenie Barrios [facility] 03-14-2024 09:47-0400 Heart rate 67 /min Stephenie Barrios [facility] 03-14-2024 09:47-0400 Mean blood pressure 92 mm[Hg] Stephenie Barrios [facility] 03-14-2024 09:47-0400 Respiratory rate 16 /min Stephenie Barrios [facility] 03-14-2024 09:47-0400 Systolic blood pressure 129 mm[Hg] Stephenie Barrios [facility] 01-25-2024 13:26-0400 Diastolic blood pressure 76 mm[Hg] Stephenie Barrios [facility] 01-25-2024 13:26-0400 Heart rate 71 /min Stephenie Barrios [facility] 01-25-2024 13:26-0400 Mean blood pressure 94 mm[Hg] Stephenie Barrios [facility] 01-25-2024 13:26-0400 Respiratory rate 16 /min Stephenie Barrios [facility] 01-25-2024 13:26-0400 Systolic blood pressure 130 mm[Hg] Stephenie Barrios [facility] 01-18-2024 14:37-0400 Body height 193.04 cm [facility] 01-18-2024 14:37-0400 Body mass index (BMI) [Ratio] 27.8 kg/m2 [facility] 01-18-2024 14:37-0400 Body weight 103.58 kg [facility] 01-18-2024 14:37-0400 Diastolic blood pressure 79 mm[Hg] [facility] 01-18-2024 14:37-0400 Heart rate 71 /min [facility] 01-18-2024 14:37-0400 Respiratory rate 16 /min [facility] 01-18-2024 14:37-0400 Systolic blood pressure 138 mm[Hg] [facility] 01-09-2024 11:34-0500 Heart rate 57 /min Bert Huang [facility] 01-09-2024 11:34-0500 SaO2% (BldA) [Mass fraction] 96 % Bert Huang [facility] 01-09-2024 11:34-0500 Diastolic blood pressure 93 mm[Hg] Bert Huang [facility] 01-09-2024 11:34-0500 Mean blood pressure 118 mm[Hg] Bert Huang [facility] 01-09-2024 11:34-0500 Systolic blood pressure 167 mm[Hg] Bert Huang [facility] 01-09-2024 11:33-0500 Respiratory rate 16 /min Bert Huang [facility] 01-09-2024 11:27-0500 Diastolic blood pressure 83 mm[Hg] Bert Huang [facility] 01-09-2024 11:27-0500 Heart rate 71 /min Bert Huang [facility] 01-09-2024 11:27-0500 Respiratory rate 14 /min Bert Huang [facility] 01-09-2024 11:27-0500 SaO2% (BldA) [Mass fraction] 98 % Bert Huang [facility] 01-09-2024 11:27-0500 Systolic blood pressure 154 mm[Hg] Bert Huang [facility] 01-09-2024 11:03-0500 Diastolic blood pressure 93 mm[Hg] Bert Huang [facility] 01-09-2024 11:03-0500 Heart rate 62 /min Nole Jerry [facility] 01-09-2024 11:03-0500 Mean blood pressure 120 mm[Hg] Bert Huang [facility] 01-09-2024 11:03-0500 Systolic blood pressure 173 mm[Hg] Noel Jerry [facility] 01-09-2024 11:01-0500 SaO2% (BldA) [Mass fraction] 96 % Bert Jerry [facility] 01-09-2024 11:00-0500 Mean blood pressure 123 mm[Hg] Bert Jerry [facility] 01-09-2024 11:00-0500 Body temperature 97.7 [degF] Bert Huang [facility] 01-09-2024 11:00-0500 Respiratory rate 14 /min Bert Jerry [facility] 12-31-2023 09:48-0500 Body height 193.04 cm [facility] 12-31-2023 09:48-0500 Body mass index (BMI) [Ratio] 27.6 kg/m2 [facility] 12-31-2023 09:48-0500 Body weight 102.73 kg [facility] 12-31-2023 09:48-0500 Diastolic blood pressure 81 mm[Hg] [facility] 12-31-2023 09:48-0500 Heart rate 68 /min [facility] 12-31-2023 09:48-0500 Respiratory rate 16 /min [facility] 12-31-2023 09:48-0500 Systolic blood pressure 129 mm[Hg] [facility] 12-14-2023 09:54-0500 Blood Pressure Location [facility] 12-14-2023 09:54-0500 Diastolic blood pressure 81 mm[Hg] [facility] 12-14-2023 09:54-0500 Heart rate 81 /min Homero X[facility] 12-14-2023 09:54-0500 Respiratory rate 16 /min [facility] 12-14-2023 09:54-0500 Systolic blood pressure 137 mm[Hg] Homero XAV[facility] 12-10-2023 12:26-0500 Diastolic blood pressure 86 mm[Hg] Stephenie Barrios [facility] 12-10-2023 12:26-0500 Heart rate 60 /min Stephenie Barrios [facility] 12-10-2023 12:26-0500 Mean blood pressure 105 mm[Hg] Stephenie Barrios [facility] 12-10-2023 12:26-0500 Respiratory rate 20 /min Stephenie Barrios [facility] 12-10-2023 12:26-0500 Systolic blood pressure 144 mm[Hg] Stephenie Barrios [facility] 11-14-2023 10:31-0500 Body height 182.9 cm Marisol Connors MD Work Phone: [facility] 11-14-2023 10:31-0500 Body mass index (BMI) [Ratio] 31.33 kg/m2 Marisol Connors MD Work Phone: [facility] 11-14-2023 10:31-0500 Body weight 104.78 kg Marisol Connors MD Work Phone: [facility] 11-14-2023 10:31-0500 Diastolic blood pressure 64 mm[Hg] Marisol Connors MD Work Phone: [facility] 11-14-2023 10:31-0500 Heart rate 62 /min Marisol Connors MD Work Phone: [facility] 11-14-2023 10:31-0500 Systolic blood pressure 100 mm[Hg] Marisol Connors MD Work Phone: [facility] 11-09-2023 11:14-0500 Diastolic blood pressure 76 mm[Hg] Stephenie Barrios [facility] 11-09-2023 11:14-0500 Heart rate 67 /min Stephenie Barrios [facility] 11-09-2023 11:14-0500 Mean blood pressure 95 mm[Hg] Stephenie Barrios [facility] 11-09-2023 11:14-0500 Respiratory rate 14 /min Stephenie Barrios [facility] 11-09-2023 11:14-0500 Systolic blood pressure 132 mm[Hg] Stephenie Barrios [facility] 10-23-2023 09:00-0500 Body height 193.04 cm Devang Ball Other [facility] 10-23-2023 09:00-0500 Body mass index (BMI) [Ratio] 28.31 kg/m2 Devang Ball Other [facility] [employer] Other 10-23-2023 09:00-0500 Body weight 105.51 kg Edvang Ball Other [facility] [employer] Other 10-23-2023 09:00-0500 Body weight 105.5 kg [facility] 10-23-2023 09:00-0500 Diastolic blood pressure 83 mm[Hg] Devang Ball Other [facility] 10-23-2023 09:00-0500 Respiratory rate 12 /min Devang Ball Other [facility] [employer] Other 10-23-2023 09:00-0500 Systolic blood pressure 136 mm[Hg] Devang Ball Other [facility] 10-08-2023 08:11-0500 Heart rate 62 /min Bib Fabi [facility] 10-08-2023 08:11-0500 SaO2% (BldA) [Mass fraction] 93 % Bib Fabi [facility] 10-08-2023 08:11-0500 Diastolic blood pressure 98 mm[Hg] Bib Fabi [facility] 10-08-2023 08:11-0500 Mean blood pressure 124 mm[Hg] Bib Fabi [facility] 10-08-2023 08:11-0500 Systolic blood pressure 175 mm[Hg] Bib Fabi [facility] 10-08-2023 08:11-0500 Respiratory rate 16 /min Bib Fabi [facility] 10-08-2023 08:02-0500 Diastolic blood pressure 90 mm[Hg] Bib Fabi [facility] 10-08-2023 08:02-0500 Heart rate 63 /min Bib Fabi [facility] 10-08-2023 08:02-0500 SaO2% (BldA) [Mass fraction] 97 % Bib Fabi [facility] 10-08-2023 08:02-0500 Systolic blood pressure 168 mm[Hg] Bib Fabi [facility] 10-08-2023 07:16-0500 Heart rate 61 /min Bib Fabi [facility] 10-08-2023 07:16-0500 SaO2% (BldA) [Mass fraction] 95 % Bib Fabi [facility] 10-08-2023 07:16-0500 Body temperature 97.88 [degF] Bib Fabi [facility] 10-08-2023 07:16-0500 Diastolic blood pressure 91 mm[Hg] Bib Fabi [facility] 10-08-2023 07:16-0500 Mean blood pressure 115 mm[Hg] Bib Fabi [facility] 10-08-2023 07:16-0500 Systolic blood pressure 162 mm[Hg] Bib Fabi [facility] 10-08-2023 07:12-0500 Respiratory rate 15 /min Bib Fabi [facility] 09-14-2023 07:47-0500 Diastolic blood pressure 75 mm[Hg] Stephenie Barrios [facility] 09-14-2023 07:47-0500 Heart rate 63 /min Stephenie Barrios [facility] 09-14-2023 07:47-0500 Mean blood pressure 91 mm[Hg] Stephenie Barrios [facility] 09-14-2023 07:47-0500 Respiratory rate 16 /min Stephenie Barrios [facility] 09-14-2023 07:47-0500 Systolic blood pressure 124 mm[Hg] Stephenie Barrios [facility] 08-07-2023 13:25-0400 Heart rate 61 /min Bib Fabi [facility] 08-07-2023 13:25-0400 SaO2% (BldA) [Mass fraction] 97 % Bib Fabi [facility] 08-07-2023 13:25-0400 Diastolic blood pressure 90 mm[Hg] Bib Fabi [facility] 08-07-2023 13:25-0400 Mean blood pressure 119 mm[Hg] Bib Fabi [facility] 08-07-2023 13:25-0400 Systolic blood pressure 176 mm[Hg] Bib Fabi [facility] 08-07-2023 13:19-0400 Diastolic blood pressure 83 mm[Hg] Bib Fabi [facility] 08-07-2023 13:19-0400 Heart rate 65 /min Bib Fabi [facility] 08-07-2023 13:19-0400 SaO2% (BldA) [Mass fraction] 95 % Bib Fabi [facility] 08-07-2023 13:19-0400 Systolic blood pressure 153 mm[Hg] Bib Fabi [facility] 08-07-2023 12:34-0400 Heart rate 62 /min Bibrubi Sanchez [facility] 08-07-2023 12:34-0400 SaO2% (BldA) [Mass fraction] 95 % Bib Sanchez [facility] 08-07-2023 12:34-0400 Body temperature 97.7 [degF] Bib Sanchez [facility] 08-07-2023 12:34-0400 Diastolic blood pressure 73 mm[Hg] Bib Sanchez [facility] 08-07-2023 12:34-0400 Mean blood pressure 101 mm[Hg] Bib Sanchez [facility] 08-07-2023 12:34-0400 Systolic blood pressure 157 mm[Hg] Bib Sanchez [facility] 08-07-2023 12:33-0400 Respiratory rate 14 /min Bib Sanchez [facility] 05-11-2023 09:40-0400 Diastolic blood pressure 77 mm[Hg] Stepheniejakob Barrios [facility] 05-11-2023 09:40-0400 Heart rate 68 /min Stephenie Barrios [facility] 05-11-2023 09:40-0400 Mean blood pressure 95 mm[Hg] Stephenie Barrios [facility] 05-11-2023 09:40-0400 Respiratory rate 14 /min Stephenie Barrios [facility] 05-11-2023 09:40-0400 Systolic blood pressure 130 mm[Hg] Stephenie Barrios [facility] 05-01-2023 14:39-0400 Heart rate 61 /min Bib Fabi [facility] 05-01-2023 14:39-0400 SaO2% (BldA) [Mass fraction] 96 % Bib Fabi [facility] 05-01-2023 14:39-0400 Diastolic blood pressure 80 mm[Hg] Bib Fabi [facility] 05-01-2023 14:39-0400 Mean blood pressure 107 mm[Hg] Bib Fabi [facility] 05-01-2023 14:39-0400 Systolic blood pressure 160 mm[Hg] Bib Fabi [facility] 05-01-2023 14:39-0400 Respiratory rate 14 /min Bib Fabi [facility] 05-01-2023 14:34-0400 Diastolic blood pressure 75 mm[Hg] Bib Fabi [facility] 05-01-2023 14:34-0400 Heart rate 63 /min Bib Fabi [facility] 05-01-2023 14:34-0400 Respiratory rate 14 /min Bib Fabi [facility] 05-01-2023 14:34-0400 SaO2% (BldA) [Mass fraction] 98 % Bib Fabi [facility] 05-01-2023 14:34-0400 Systolic blood pressure 149 mm[Hg] Bib Fabi [facility] 05-01-2023 14:04-0400 Heart rate 60 /min Bib Fabi [facility] 05-01-2023 14:04-0400 SaO2% (BldA) [Mass fraction] 94 % Bib Sanchez [facility] 05-01-2023 14:04-0400 Diastolic blood pressure 78 mm[Hg] Bib Sanchez [facility] 05-01-2023 14:04-0400 Mean blood pressure 103 mm[Hg] Bib Sanchez [facility] 05-01-2023 14:04-0400 Systolic blood pressure 152 mm[Hg] Bib Sanchez [facility] 05-01-2023 14:04-0400 Body temperature 97.34 [degF] Bib Sanchez [facility] 05-01-2023 14:04-0400 Respiratory rate 14 /min Bib Sanchez [facility] 04-30-2023 09:00-0400 Body height 193.04 cm Devang Ball Other [facility] [employer] Other 04-30-2023 09:00-0400 Body mass index (BMI) [Ratio] 28.36 kg/m2 Devang Ball Other [employer] Other 04-30-2023 09:00-0400 Body weight 105.69 kg Devang Ball Other [employer] Other 04-30-2023 09:00-0400 Diastolic blood pressure 83 mm[Hg] Devang Ball Other [employer] Other 04-30-2023 09:00-0400 Respiratory rate 12 /min Devang Ball Other [employer] Other 04-30-2023 09:00-0400 Systolic blood pressure 135 mm[Hg] Devang Ball Other [employer] Other 03-19-2023 08:45-0400 Diastolic blood pressure 89 mm[Hg] Stephenie Barrios [facility] 03-19-2023 08:45-0400 Heart rate 67 /min Stephenie Barrios [facility] 03-19-2023 08:45-0400 Mean blood pressure 106 mm[Hg] Stephenie Barrios [facility] 03-19-2023 08:45-0400 Respiratory rate 20 /min Stephenie Barrios [facility] 03-19-2023 08:45-0400 Systolic blood pressure 140 mm[Hg] Stephenie Barrios [facility] 03-12-2023 09:15-0400 Heart rate 65 /min Bib Fabi [facility] 03-12-2023 09:15-0400 SaO2% (BldA) [Mass fraction] 96 % Bib Fabi [facility] 03-12-2023 09:15-0400 Diastolic blood pressure 92 mm[Hg] Bib Fabi [facility] 03-12-2023 09:15-0400 Mean blood pressure 114 mm[Hg] Bib Fabi [facility] 03-12-2023 09:15-0400 Systolic blood pressure 159 mm[Hg] Bib Fabi [facility] 03-12-2023 09:15-0400 Respiratory rate 16 /min Bib Fabi [facility] 03-12-2023 09:11-0400 Diastolic blood pressure 67 mm[Hg] Bib Fabi [facility] 03-12-2023 09:11-0400 Heart rate 70 /min Ibb Fabi [facility] 03-12-2023 09:11-0400 Respiratory rate 14 /min Bib Fabi [facility] 03-12-2023 09:11-0400 SaO2% (BldA) [Mass fraction] 94 % Bib Fabi [facility] 03-12-2023 09:11-0400 Systolic blood pressure 160 mm[Hg] Bib Fabi [facility] 03-12-2023 08:09-0400 Heart rate 71 /min Bib Fabi [facility] 03-12-2023 08:09-0400 SaO2% (BldA) [Mass fraction] 95 % Bib Fabi [facility] 03-12-2023 08:09-0400 Diastolic blood pressure 69 mm[Hg] Bib Fabi [facility] 03-12-2023 08:09-0400 Mean blood pressure 102 mm[Hg] Bib Fabi [facility] 03-12-2023 08:09-0400 Systolic blood pressure 168 mm[Hg] Bib Fabi [facility] 03-12-2023 08:09-0400 Body temperature 97.52 [degF] Bib Fabi [facility] 03-12-2023 08:09-0400 Respiratory rate 12 /min Bib Fabi [facility] 03-08-2023 09:32-0400 Body height 193.04 cm Devang Iwona Ball Work Phone: [facility] 250 DO Work Phone: 03-08-2023 09:32-0400 Body mass index (BMI) [Ratio] 29.21 kg/m2 Devang Bustillo Ball Work Phone: [facility] [employer] 250 DO Work Phone: 03-08-2023 09:32-0400 Body surface area Derived from formula 2.39 m2 Devang E Ball Work Phone: [facility] [employer] 250 DO Work Phone: 03-08-2023 09:32-0400 Body weight 108.86 kg Devang E Ball Work Phone: [facility] [employer] 250 DO Work Phone: 03-08-2023 09:32-0400 Diastolic blood pressure 84 mm[Hg] Devang Bustillo Ball Work Phone: [facility] [employer] 250 DO Work Phone: 03-08-2023 09:32-0400 Heart rate 68 /min Devang Bustillo Ball Work Phone: [facility] [employer] 250 DO Work Phone: 03-08-2023 09:32-0400 Systolic blood pressure 132 mm[Hg] Devang Bustillo Ball Work Phone: [facility] [employer] 250 DO Work Phone: 02-21-2023 14:00-0400 Body height 193.04 cm Allison Blades Other [employer] Other 02-21-2023 14:00-0400 Body mass index (BMI) [Ratio] 30.43 kg/m2 Allison Blades Other [employer] Other 02-21-2023 14:00-0400 Body weight 113.4 kg Allison Blades Other [employer] Other 02-21-2023 14:00-0400 Diastolic blood pressure 66 mm[Hg] Allison Blades Other [employer] Other 02-21-2023 14:00-0400 Systolic blood pressure 110 mm[Hg] Allison Blades Other [employer] Other 01-01-2023 10:00-0500 Body height 190.5 cm LUDWIN VUCETIC Other [facility] [employer] Other 01-01-2023 10:00-0500 Body mass index (BMI) [Ratio] 30.62 kg/m2 LUDWIN VUCETIC Other [facility] [employer] Other 01-01-2023 10:00-0500 Body weight 111.13 kg LUDWIN VUCETIC Other [facility] [employer] Other 01-01-2023 10:00-0500 Diastolic blood pressure 66 mm[Hg] LUDWIN VUCETIC Other [facility] Other 01-01-2023 10:00-0500 Respiratory rate 16 /min LUDWIN VUCETIC Other [facility] [employer] Other 01-01-2023 10:00-0500 Systolic blood pressure 118 mm[Hg] LUDWIN VUCETIC Other [facility] Other 11-29-2022 10:30-0500 Body height 193.04 cm Allison Blades Other [employer] Other 11-29-2022 10:30-0500 Body mass index (BMI) [Ratio] 29.84 kg/m2 Allison Blades Other [employer] Other 11-29-2022 10:30-0500 Body weight 111.22 kg Allison Blades Other [employer] Other 11-29-2022 10:30-0500 Diastolic blood pressure 84 mm[Hg] Allison Blades Other [employer] Other 11-29-2022 10:30-0500 Systolic blood pressure 138 mm[Hg] Allison Blades Other [employer] Other 11-28-2022 09:00-0500 Blood Pressure Location ALANIS NINA [facility] 11-28-2022 09:00-0500 Diastolic blood pressure 84 mm[Hg] ALANIS NINA [facility] 11-28-2022 09:00-0500 Heart rate 68 /min ALANIS NINA [facility] 11-28-2022 09:00-0500 Respiratory rate 16 /min ALANIS NINA [facility] 11-28-2022 09:00-0500 Systolic blood pressure 121 mm[Hg] ALANIS NINA [facility] 09-26-2022 09:33-0500 Body height 193.04 cm Devang Hall Work Phone: [employer] 250 DO Work Phone: 09-26-2022 09:33-0500 Body mass index (BMI) [Ratio] 29.7 kg/m2 Devang Hall Work Phone: [employer] 250 DO Work Phone: 09-26-2022 09:33-0500 Body surface area Derived from formula 2.41 m2 Devang E Ball Work Phone: [facility]es[facility]ha[facility] [place] 250 DO Work Phone: 09-26-2022 09:33-0500 Body weight 110.68 kg Devang E Ball Work Phone: [facility]ks[facility] [place] 250 DO Work Phone: 09-26-2022 09:33-0500 Diastolic blood pressure 78 mm[Hg] Devang E Ball Work Phone: GR[facility]Jxpqfpuvwj-Liojpb [place] 250 DO Work Phone: 09-26-2022 09:33-0500 Heart rate 76 /min Devang E Ball Work Phone: UN[facility]Vbdbvqbjkh-[facility] [place] 250 DO Work Phone: 09-26-2022 09:33-0500 Systolic blood pressure 120 mm[Hg] Devang E Ball Work Phone: [facility]Pojrprwhnl-Pjatgy [place] 250 DO Work Phone: 03-28-2022 13:43-0400 Body height 193.04 cm Devang Bustillo Ball Work Phone: [facility] 250 DO Work Phone: 03-28-2022 13:43-0400 Body mass index (BMI) [Ratio] 28.48 kg/m2 Devang Bustillo Ball Work Phone: [facility] 250 DO Work Phone: 03-28-2022 13:43-0400 Body surface area Derived from formula 2.37 m2 Devang E Ball Work Phone: [facility] 250 DO Work Phone: 03-28-2022 13:43-0400 Body weight 106.14 kg Devang E Ball Work Phone: [facility] 250 DO Work Phone: 03-28-2022 13:43-0400 Diastolic blood pressure 60 mm[Hg] Devang Bustillo Ball Work Phone: [facility] 250 DO Work Phone: 03-28-2022 13:43-0400 Heart rate 88 /min Devang E Ball Work Phone: [facility] 250 DO Work Phone: 03-28-2022 13:43-0400 Systolic blood pressure 100 mm[Hg] Devang Bustillo Ball Work Phone: [facility] 250 DO Work Phone: Encounters Encounter Date Encounter Type Care Provider Facility Start: 04-28-2024 End: 04-28-2024 ambulatory [facility] Work Phone: Start: 04-28-2024 End: 04-28-2024 [facility] Work Phone: Start: 03-14-2024 End: 03-15-2024 ambulatory [facility] Facility:[facility] Start: 03-14-2024 End: 03-14-2024 Pain Management [facility] Start: 02-25-2024 End: 02-26-2024 ambulatory ANDREW CRUZ Not Available Start: 01-25-2024 End: 01-26-2024 ambulatory [facility] Facility:[facility] Start: 01-25-2024 End: 01-25-2024 Pain Management [facility] Start: 01-18-2024 End: 01-18-2024 ambulatory [facility] Work Phone: Start: 01-18-2024 End: 01-18-2024 Patient encounter procedure [facility] Work Phone: Start: 01-09-2024 End: 01-10-2024 ambulatory Bert Huang Facility:[facility] Start: 01-09-2024 End: 01-09-2024 Pain Management Bert Huang [facility] Start: 12-31-2023 End: 12-31-2023 ambulatory [facility] Work Phone: Start: 12-31-2023 End: 12-31-2023 Patient encounter procedure [facility] Work Phone: Start: 12-24-2023 Non-patient / Non-visit [facility] [employer] Work Phone: Start: 12-14-2023 End: 12-15-2023 ambulatory Homero XAVIER Facility:[facility] Start: 12-14-2023 End: 12-14-2023 Patient encounter procedure Homero XAVIER [facility] Start: 12-11-2023 End: 12-12-2023 ambulatory RAMONTIA WOOD Facility:[facility] Start: 12-10-2023 End: 12-11-2023 ambulatory Stephenie Barrios Facility:[facility] Start: 12-10-2023 End: 12-10-2023 Pain Management Stephenie Barrios [facility] Start: 11-28-2023 End: 11-28-2023 ambulatory Devang Hall Other [facility] [employer] Other Start: 11-28-2023 Telephone encounter Devang Hall [facility] Start: 11-14-2023 End: 11-14-2023 ambulatory MARISOL Gao [facility] Start: 11-14-2023 End: 11-14-2023 Office outpatient visit 25 minutes Marisol Connors MD Work Phone: [phone] [place] [address] Comment on above: Arteriosclerosis of coronary artery (Primary Dx); Status post coronary angioplasty; Dyslipidemia; Essential hypertension; Obesity (BMI 30.0-34.9); At risk for falls Start: 11-09-2023 End: 11-10-2023 ambulatory Stephenie Barrios Facility:[facility] Start: 11-09-2023 End: 11-09-2023 Pain Management Stephenie Barrios [facility] Start: 10-23-2023 End: 10-23-2023 ambulatory Devang Hall Other [facility] [employer] Other Start: 10-23-2023 Office outpatient vi sit 25 minutes [facility] Start: 10-23-2023 End: 10-23-2023 Patient encounter procedure [facility] Work Phone: Start: 10-08-2023 End: 10-09-2023 ambulatory Bib Sanchez Facility:[facility] Start: 10-08-2023 End: 10-08-2023 Pain Management Bib Sanchez [facility] Start: 09-14-2023 End: 09-15-2023 ambulatory Stephenie Barrios Facility:[facility] Start: 09-14-2023 End: 09-14-2023 Pain Management Stephenie Barrios [facility] Start: 09-04-2023 End: 09-05-2023 ambulatory Bib Sanchez Facility:[facility] Start: 08-28-2023 End: 08-29-2023 ambulatory DEVANG HALL Facility:[facility] Start: 08-07-2023 End: 08-08-2023 ambulatory MD Bib Sanchez Facility:[facility] Start: 08-07-2023 End: 08-07-2023 Pain Management Bib Sanchez [facility] Start: 06-18-2023 End: 06-19-2023 ambulatory Bib Sanchez Facility:[facility] Start: 05-29-2023 End: 05-30-2023 ambulatory Bib Sanchez Facility:[facility] Start: 05-11-2023 End: 05-12-2023 ambulatory Stephenie Barrios Facility:[facility] Start: 05-11-2023 End: 05-11-2023 Pain Management Stephenie Barrios [facility] Start: 05-03-2023 End: 05-03-2023 ambulatory Devang Hall Other [employer] Other Start: 05-03-2023 Telephone encounter Devang Rafael DOUGLAS [facility] Start: 05-01-2023 End: 05-02-2023 ambulatory Bib Sanchez [facility] [employer] Other Start: 05-01-2023 Telephone encounter Devang Rafael DOUGLAS [facility] Start: 05-01-2023 End: 05-01-2023 Pain Management Bib Sanchez [facility] Start: 04-30-2023 End: 04-30-2023 ambulatory Devang Hall Other [employer] Other Start: 04-30-2023 Patient encounter procedure Devang Hall [facility] Start: 03-19-2023 End: 03-20-2023 ambulatory Stephenie Barrios Facility:[facility] Start: 03-19-2023 End: 03-19-2023 Pain Management Stephenie Barrios [facility] Start: 03-14-2023 End: 03-15-[address] MARISOL CONNORS Facility: Start: 03-12-2023 End: 03-13-[address] MARISOL CONNORS Facility:[facility] Start: 03-12-2023 End: 03-12-2023 Pain Management Bib Sanchez [facility] Start: 03-08-2023 FUV, Provider: Marisol Connors, Status: Pen, Time: 9:50 AM Devang Hall Work Phone: [facility] 250 DO Work Phone: Start: 03-08-2023 Office outpatient vi sit 25 minutes Devang Iwona Hall [facility] Work Phone: Start: 03-08-2023 ambulatory Damon Connors Facility : Start: 03-06-2023 Rx Renewal Devang collins Work Phone: [facility] 250 DO Work Phone: Start: 02-21-2023 End: 02-21-2023 ambulatory Allison Kenyon Other [facility] [employer] Other Start: 02-21-2023 Office outpatient vi sit 15 minutes Allison Blades [facility] [place] Start: 01-10-2023 End: 03-02-[address] DOCTOR PLUMMER Facility:[facility] Start: 01-01-2023 End: 01-01-2023 ambulatory LUDWIN LEMON Other [facility] Other Start: 01-01-2023 Office outpatient ne w 45 minutes LUDWIN LEMON formerly [facility] Start: 11-29-2022 End: 11-29-2022 ambulatory Allison Blades Other [employer] Other Start: 11-29-2022 Office outpatient ne w 45 minutes Allison Blades [facility] [place] Start: 11-29-2022 Telephone encounter Allison Kenyon [facility] [employer] Start: 11-28-2022 End: 11-28-2022 Patient encounter procedure ALANIS WOOD [facility] Start: 11-15-2022 End: 11-15-2022 ambulatory Devang Hall Other [facility] [employer] Other Start: 11-15-2022 Telephone encounter Devang Hall Jareth Hall [facility] Start: 11-14-2022 End: 11-15-[address] DEVANG HALL Facility: Start: 10-11-2022 Rx Renewal Devang Gonzalez l Work Phone: [facility] 250 DO Work Phone: Start: 09-26-2022 Office outpatient vi sit 25 minutes Devang Hall Work Phone: [facility] 250 DO Work Phone: Start: 09-26-2022 ambulatory Marisol Connors Facility :[id number] Start: 05-30-2022 End: 05-30-2022 Patient encounter procedure Goldy Alberto Jr. [facility] Start: 05-11-2022 End: 05-11-2022 Patient encounter procedure Goldy Alberto Jr. [facility] Start: 05-09-2022 End: 05-09-2022 Patient encounter procedure Goldy Alberto Jr. [facility] Start: 04-25-2022 End: 04-25-2022 Emergency department patient visit Dr. Devang Hall Facility:[facility] Start: 04-07-2022 End: 04-08-[address] MARISOL CONNORS Facility: Start: 03-28-2022 Office outpatient vi sit 25 minutes Devang Hall Work Phone: [facility] 250 DO Work Phone: Start: 03-28-2022 ambulatory Marisol Connors Facility : Start: 03-06-2022 Rx Renewal Marisol Connors MD Work Phone: [facility] 250 DO Work Phone: Start: 09-26-2021 Rx Renewal Marisol Connors MD Work Phone: [facility] DO Work Phone: Start: 09-22-2021 Rx Renewal Marisol Connors MD Work Phone: [facility] DO Work Phone: Start: 04-11-2018 End: 04-13-2018 Evaluation and management of inpatient DEVANG Iwona [facility] Start: 04-10-2018 Ambulatory [facility] Start: 04-10-2018 End: 04-15-[address] [facility] Procedures Date Procedure Procedure Detail Performing Clinician Start: 01-09-2024 Injection of sacroil iac joint using fluoroscopic guidance [employer] Comment on above: 90% relief for 4 hrs Start: 10-08-2023 Radiofrequency ablat ion of nerve root of lumbar spine using fluoroscopic guidance [employer] Comment on above: Bilateral L3/4+L4/5- no relief Start: 09-04-2023 Injection of facet j oint using fluoroscopic guidance [employer] Comment on above: Bilateral L3/4, L4/5 MBB-80% relief for 1 day Start: 08-07-2023 Injection of facet j oint using fluoroscopic guidance [employer] Comment on above: BL L3/L4 L4/L5 MBB 8 5% Relief x 4 hours Start: 05-29-2023 Local anesthetic sac ral epidural block Bib Sanchez Comment on above: Caudal john 50% relie f Start: 05-01-2023 Injection of facet j oint using fluoroscopic guidance [employer] Comment on above: bilateral 75% relief for 2 hours Start: 03-12-2023 Injection of facet j oint using fluoroscopic guidance Stephenie ADINCON Comment on above: pt changed amt of [...] SMITA Start: 04-11-2018 INCENTIVE SPIROMETRY RT ANNMARIE SMTIA Start: 04-11-2018 INITIATE OXYGEN THER APY PROTOCOL [...] - Tdap) DTaP/Tdap/Td Vaccines (2 - Tdap) [facility] Start: 05-22-2024 End: 05-22-2024 Patient encounter procedure 05/22/2024 9:50 AM EDT Office Visit [facility] [address] [id number] Marisol Connors MD 703 [facility] [address], [address] [address] [facility] Start: 09-18-2023 FUV, Provider: Marisol Connors, Status: Pen, Time: 9:50 AM FUV, Provider: Marisol Connors, Status: Pen, Time: 9:50 AM [facility] 250 DO Work Phone: Start: 03-08-2023 FUV, Provider: Marisol Connors, Status: Pen, Time: 9:50 AM FUV, Provider: Marisol Connors, Status: Pen, Time: 9:50 AM [facility] 250 DO Work Phone: Start: 10-22-2022 COVID-19 Vaccine (4 - Pfizer series) COVID-19 Vaccine (4 - Pfizer series) [facility] Start: 09-26-2022 FUV, Provider: Marisol Connors, Status: Pen, Time: 9:40 AM FUV, Provider: Marisol Connors, Status: Pen, Time: 9:40 AM [facility] 250 DO Work Phone: Start: 03-28-2022 FUV, Provider: Marisol Connors, Status: Pen, Time: 1:20 PM FUV, Provider: Marisol Connors, Status: Pen, Time: 1:20 PM [facility] [facility] DO Work Phone: Start: 12-15-2021 FUV, Provider: Marisol Connors, Status: Pen, Time: 10:30 AM FUV, Provider: Marisol Connors, Status: Pen, Time: 10:30 AM [facility] DO Work Phone: Start: 1996 Zoster Vaccines (1 of 2) Zoste r Vaccines (1 of 2) [facility] Start: 1964 Hepatitis C screening Hepatitis C Sc [facility] Start: 1945 Lipid panel Lipid Panel [facility] Start: 1945 Medicare Annual Well ness Visit Medicare Annual Wellness Visit (AWV) [facility] Comprehensive metabo lic 2000 panel - Serum or Plasma [facility] Immunizations Immunization Date Immunization Notes Care Provider Tali hwang 08-20-2023 influenza virus vaccine, unspecified formulation Homero XAVIER [facility] 08-27-2022 Pfizer COVID-19 Vac Bivalent 30 MCG/0.3ML Intramuscular Suspension Devang Hall Work Phone: [facility] 08-14-2022 Fluzone High-Dose Quadrivalent 0.7 ML Intramuscular Suspension Prefilled Syringe Devang Hall Work Phone: [facility] 250 DO Work Phone: 08-14-2022 influenza virus vaccine, unspecified formulation ALANIS WOOD [facility] 08-14-2022 influenza, high dose seasonal, preservative-free Devang Hall Other [facility] [employer] Other 10-03-2021 Pfizer-BioNTech COVID-19 Vacc 30 MCG/0.3ML Intramuscular Suspension Devang Hall Work Phone: [facility] 10-03-2021 SARS-CoV-2 (COVID-19 ) Ad26 vaccine, recombinant Goldy Alberto Jr. [facility] 07-01-2021 Fluzone High-Dose Quadrivalent 0.7 ML Intramuscular Suspension Prefilled Syringe Devang Hall Work Phone: [facility] 250 DO Work Phone: 07-01-2021 influenza virus vaccine, unspecified formulation ALANIS WOOD [facility] 06-05-2021 influenza virus vaccine, unspecified formulation Goldy Alberto Jr. [facility] 01-25-2021 Pfizer-BioNTech COVID-19 Vacc 30 MCG/0.3ML Intramuscular Suspension Marisol Connors MD Work Phone: [facility] 01-25-2021 SARS-CoV-2 (COVID-19 ) Ad26 vaccine, recombinant Goldyjorje Alberto Jr. [facility] 01-03-2021 COVID-19 Vaccine Pfi zer - Documentation Purposes Only Devang Hall Other [facility] 01-03-2021 SARS-CoV-2 (COVID-19 ) mRNA-1273 vaccine Goldy Alberto Jr. [facility] 12-28-2020 Pfizer-BioNTech COVID-19 Vacc 30 MCG/0.3ML Intramuscular Suspension Devang Hall Work Phone: [facility] 11-08-2020 diphtheria, tetanus toxoids and pertussis vaccine Devang Hall Work Phone: [place] [address] DO Work Phone: 07-06-2020 influenza virus vaccine, unspecified formulation Marisol Connors MD Work Phone: [facility] 07-02-2020 influenza virus vaccine, unspecified formulation ALANIS WOOD [facility] 08-19-2018 influenza virus vaccine, unspecified formulation ALANIS WOOD [facility] 08-19-2018 Seasonal trivalent influenza vaccine, adjuvanted, preservative free Devang Hall Work Phone: [facility] 250 DO Work Phone: 07-06-2018 influenza virus vaccine, unspecified formulation Marisol Connors MD Work Phone: [facility] 250 DO Work Phone: 08-24-2017 pneumococcal conjuga te vaccine, 13 valent Devang Hall Work Phone: [facility] 08-17-2017 influenza virus vaccine, unspecified formulation ALANIS WOOD [facility] 08-17-2017 influenza, high dose seasonal, preservative-free Devang E Rafael Work Phone: [place] [address] DO Work Phone: 11-05-2016 pneumococcal polysaccharide vaccine, 23 valent Marisol Connors MD Work Phone: [facility] 250 DO Work Phone: 08-11-2016 influenza virus vaccine, unspecified formulation ALANIS WOOD [facility] 08-05-2016 influenza virus vaccine, unspecified formulation ALANIS WOOD [facility] 08-05-2016 influenza, injectabl e, quadrivalent, preservative free Devang E aRfael Work Phone: [place] [address] DO Work Phone: 07-06-2014 pneumococcal polysaccharide vaccine, 23 valent Devang Bustillo Rafael Work Phone: [facility] Payers Date Payer Category Payer Medicare AETNA MEDICARE A ETNA MEDICARE ASSURE [id number] 2021-Present [id number] [place] [address] [id number] 2017 Medicare [id number] 1959 Medicare [id number] 2.16.840.1.920288.19 1945 Unknown [id number] 2.16.840.1.542260.3.579.2.356 1946 Unknown [id number] 2.16.840.1.567692.3.579.2.356 1946 Unknown [id number] 2.16.840.1.774056.3.579.2.356 1946 Unknown [id number] 2.16.840.1.838451.3.579.2.356 1946 Unknown [id number] 2.16.840.1.560501.3.579.2.593 1946 Unknown [id number] 2.16.840.1.386565.3.579.2.593 1946 Unknown [id number] 2.16.840.1.045506.3.579.2.593 1946 Unknown [id number] 2.16.840.1.980822.3.579.2.593 1946 Unknown [id number] 2.16.840.1.146254.3.579.2.593 1946 Unknown [id number] 2.16.840.1.847614.3.579.2.1244 1946 Unknown [id number] 2.16.840.1.021272.3.579.2.1259 1946 Unknown [id number] 2.16.840.1.833871.3.579.2.1259 1946 Unknown [id number] 2.16.840.1.336473.3.579.2.727 1946 Unknown [id number] 2.16.840.1.858770.3.579.2.727 1946 Unknown [id number] 2.16.840.1.154218.3.579.2.727 1946 Unknown [id number] 2.16.840.1.921790.3.579.2.727 1946 Unknown [id number] 2.16.840.1.121942.3.579.2.727 1946 Unknown [id number] 2.16.840.1.158023.3.579.2.727 1946 Unknown [id number] 2.16.840.1.021278.3.579.2.727 1946 Unknown [id number] 2.16.840.1.702077.3.579.2.727 1946 Unknown [id number] 2.16.840.1.535169.3.579.2.727 1946 Unknown [id number] 2.16.840.1.531753.3.579.2.727 1946 Unknown [id number] 2.16.840.1.078422.3.579.2.727 1946 Unknown [id number] 2.16.840.1.252201.3.579.2.727 1946 Unknown [id number] 2.16.840.1.445406.3.579.2.72 1946 Unknown [id number] 2.16.840.1.357086.3.579.2.727 1946 Unknown [id number] 2.16.840.1.068477.3.579.2.727 1946 Unknown [id number] 2.16.840.1.250685.3.579.2.727 1946 Unknown [id number] 2.16.840.1.749801.3.579.2. Self-pay Self Pay [id number] Unknown AETNA Social History Date Type Detail [facility] Start: 1945 Sex Assigned At Male F [facility] Start: 11-14-2023 Social alcohol use Social alcohol e -[facility] [address] DO Work Phone: Start: 06-16-2019 End: 11-15-2021 Tobacco smoking status Ex-smoker (finding) [facility] Comment on above: pt quit smoking in 984 Start: 11-14-2023 Sex Assigned At Male [facility] Tobacco smoking status Never [facility] Comment on above: pt quit smoking in 1 984 Start: 01-01-2023 [facility] Other History of tobacco use Current smoker [facility] Work Phone: History of tobacco use Cigarette Smoker [facility] Work Phone: Start: 11-14-2023 Tobacco use and exposure Smokeless tobacco non-user [facility] Work Phone: Start: 11-14-2023 Alcohol intake Ex-drinker (finding) [facility] Work Phone: Start: 1945 Sex Assigned At Not on file [facility] Work Phone: Start: 11-04-2023 End: 11-14-2023 Exposure to SARS-CoV-2 (event) Not sure [facility] Medical Equipment Procedure Code Equipment Code Equipment Origin al Text Equipment Identifier Dates FDA Start: 06-16-2019 CL CLOSURE DEVIC E EXOSEAL 6F FDA Start: 06-16-2019 CATARACT EXTRACT ION W/ INTRAOCULAR LENS Adolph Schultz DO 11/02/20 Non Biological Eye R [id number] FDA Start: 11-02-2020 CL CLOSURE DEVIC E [...] Assessment Result Facility 03-14-2024 Functional Status N/A [facility] 01-25-2024 Functional Status N/A [facility] 01-09-2024 Functional Status N/A [facility] 12-14-2023 Functional Status N/A [facility] 12-10-2023 Functional Status N/A [facility] 11-09-2023 Functional Status N/A [facility] 10-08-2023 Functional Status N/A [facility] 09-14-2023 Functional Status N/A [facility] 08-07-2023 Functional Status N/A [facility] 05-11-2023 Functional Status N/A [facility] 05-01-2023 Functional Status N/A [facility] 03-19-2023 Functional Status N/A [facility] 03-12-2023 Functional Status N/A [facility] 11-28-2022 Functional Status N/A [facility] 05-30-2022 Functional Status N/A [facility] 05-05-2022 Functional Status N/A [facility] Clinical Notes 12-29-2020 to 03-14-2024 Note Date [...] Date:05/02/2024 10:30:00 AM Scheduled Provider:Stephenie Barrios PA-C Location[facility] Appointment Type:Pain Management - Follow Up (FT) [facility]03-22-2024 Evaluation + Plan noteExtracted from: Title:Pain [...] Date:03/14/2024 09:45:00 AM Scheduled Provider:Stephenie Barrios PA-C Location:[facility] Appointment Type:Pain Management - Follow Up (FT) [facility]03-06-2024 Evaluation + Plan noteExtracted from: Title:Bilateral [...] PM Scheduled Provider:Stephenie Barrios PA-C Location[facility] Appointment Type:Pain Management - Follow Up (FT) [facility]03-06-2024 Note [id number] 01-09-2024 NoteDiagnosis: M46.1, bilateral sacroiliitis Procedure: Bilateral [...] procedure, and agrees to continue currently prescribed/recommended therapies.[facility] Comment on above:Result Comment: Electronically Signed By: Bert Huang DO.amy\Date and Time Signed: 01/09/24 11:32 [id number] Hospital Discharge instructions Patient Education 12/14/2023 10:59:33 [...] (electrical nerve stimulation). ?For women, using a pesticide use medical coordinator to prevent urine leaks. This is a [...] right after experiencing incontinence. General instructions Take byjf-ydp-rkrkkdm and prescription medicines only as told by [...] important. Where to find more information National [place] of Diabetes and Digestive and Kidney Diseases: www.niddk.nih.gov [employer]: www.urologyhealth.org Contact a health care [...] provider. Document Revised: 05/27/2021 Document Reviewed: 05/27/2021 [employer] Patient Education 2022 [employer]. Follow Up Care 12/07/2023 15:16:05 With:DUC WALTERS, Homero Marie, SHARADL Address: [facility] [address], [place] [phone] When: only if needed [facility] 02-05-2024 Evaluation + Plan noteExtracted from: [...] Date:12/14/2023 09:30:00 AM Scheduled Provider:Homero XAVIER MD Location:[facility] Appointment Type:URO Office Visit [facility]01-10-2024 History of Present illness Narrative* Marisol [...] At risk for falls [facility] Work Phone: [phone] Instructions* Patient Instructions* Steven Wheeler MA - [...] Fall Prevention Education Given [facility] Work Phone: [phone] Evaluation + Plan noteExtracted from: Title:Pain Managment [...] Date:12/10/2023 11:15:00 AM Scheduled Provider:Bib Sanchez MD Location:[facility] Appointment Type:Pain Management - Follow Up (FT) Appointment Date:12/11/2023 01:00:00 PM Scheduled Provider:ALANIS WOOD PA-C Location:[facility] Appointment Type:URO Office Visit [facility]12-19-2023 Evaluation note* Encounter Date Diagnosis Assessment [...] Oct, Fatigue, unspecified type (ICD-10 - R53.83) [facility] Other 12-04-2023 Note [id number] 09-14-2023 Evaluation + Plan noteExtracted from: Title:Pain [...] follow-up as above mentioned ZACARIAS score: 28% [facility]10-31-2023 Note [id number] 08-07-2023 [id number]:127[facility]07-25-2023 Note [id number]:[address] [place] [address] 05-11-2023 Evaluation + Plan noteExtracted from: Title:Pain [...] clinic sooner if necessary. ZACARIAS score: 42% [facility]06-29-2023 Evaluation note* Encounter Date Diagnosis Assessment Notes Treatment Notes Treatment Clinical Notes Apr, Thyroid cyst (ICD-10 - E04.1) [facility] non-diagnostic - 2014, US: stable nodules, no further scans necessary - 04/2023 [facility] [employer] Other 06-27-2023 Note [id number]:127[facility] 03-19-2023 Evaluation + Plan noteExtracted from: [...] clinic sooner if necessary. ZACARIAS score: 48% [facility]04-19-2023 Evaluation note* Encounter Date Diagnosis Assessment Notes Treatment Notes Treatment Clinical Notes Feb, Low back pain, unspecified (ICD-10 - M54.50) [facility] [employer] Other 02-27-2023 Evaluation note* Encounter Date Diagnosis [...] R26.89) Dec, Physical deconditioning (ICD-10 - R53.81) [facility]. Other 01-25-2023 Evaluation note* Encounter Date Diagnosis Assessment Notes Treatment Notes Treatment Clinical Notes Nov, Low back pain, unspecified (ICD-10 - M54.50) Nov, Other chronic pain (ICD-10 - G89.29) [facility] Other 01-24-2023 Hospital Discharge instructions Patient Education [...] urethra. Follow these instructions at home: Take mkgg-vvr-xdsrsyo and prescription medicines only as told by [...] 10/22/2006 Document Revised: 09/16/2019 Document Reviewed: 11/26/2017 [employer] Patient Education 2020 [employer]. Follow Up Care 08/31/2022 09:40:03 With:NINA SHIPMAN, ALANIS Bustillo, URL Address: [address] [place] [address] When: Unknown [facility] Hospital Discharge instructions Patient Education [...] urethra. Follow these instructions at home: Take nslg-jup-tkyabsv and prescription medicines only as told by [...] 10/22/2006 Document Revised: 09/16/2019 Document Reviewed: 11/26/2017 [employer] Patient Education 2020 [employer]. Follow Up Care 05/11/2022 10:39:09 With:Remy Cruz MD, CHARO Parra Address: [facility] [address] [place] [phone] When:Within 2 Month(s) Comments:PVR [facility] 07-07-2022 Hospital Discharge instructions Patient Education [...] Address: [facility] [address] [place] [address]- Business (1) When:4 weeks Comments:PVR with next office visit [facility]06-15-2021 NoteHNO ID: [id number] Author: Alanis Nguyen MD Service: ? Author [...] He had a second opinion with Dr. 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 He established with [...] hence has not been back to the [facility]. He is not compliant with PT exercises. He continues to have numbness in the feet with intermittent tingling, no sharp/burning pain. ?On 11/08/20, he tripped over the laundry basket and had a cut on the right forehead. No loss of consciousness, he was brought to [facility] needing stitches. CT c- spine [...] as he can do more at the [facility]. They are planning to go back to the [facility]. Current Outpatient Medications Medication Sig Dispense [...] pain, no s (more content not included)... [facility]02-24-2021 NotePatient Outreach (COVAMN) RIDGE ROLAND ([id number]) 1945 M Date Time Provider Department 12/29/20 FELIBERTOSYARITZA During your visit today, we recorded the following information about you: Allergies As of Date: 12/29/2020 (No Known Allergies) Date Reviewed: 11/16/2020 Reviewed by: Mauri Du) SHIRA Horn - Fully Assessed Order(s):SARS-COVID VACCINE 1ST DOSE APPT [[id number]] Order #: [id number] FUTURE Prescriptions as of 12/29/2020 Sig: CYANOCOBALAMIN [...] Appointments Appointment Date:05/11/2022 10:00:00 AM Scheduled Provider: Location:[facility] Appointment Type:Urology FT [facility] evaluation + Plan note Future Appointments Appointment Date:05/30/2022 09:30:00 AM Scheduled Provider:Goldy Alberto Jr., MD Location:[facility] Future Appointments Appointment Date:08/08/2022 08:45:00 AM Scheduled Provider:Goldy Alberto Jr., MD Location:[facility] Appointment Type:URO Office Visit [facility] evaluation + Plan note Future Appointments Appointment Date:01/10/2023 11:00:00 AM Scheduled Provider:ALANIS WOOD PA-C Location:[facility] Appointment Type:URO Office Visit [facility] evaluation + Plan note Future Appointments Appointment Date:03/19/2023 08:30:00 AM Scheduled Provider:Stephenie Barrios PA-C Location:[facility] Appointment Type:Pain Management - Follow Up (FT) [facility] + Plan note Future Appointments Appointment Date:05/11/2023 10:00:00 AM Scheduled Provider:Stephenie Barrios PA-C Location:[facility] [place] Appointment Type:Pain Management - Follow Up (FT) [facility] + Plan note Future Appointments Appointment Date:08/28/2023 07:45:00 AM Scheduled Provider:Bib Sanchez MD Location:[facility] [place] Appointment Type:Pain Management - Follow Up (FT) [facility] + Plan note Future Appointments Appointment Date:11/09/2023 11:15:00 AM Scheduled Provider:Stephenie Barrios PA-C Location:[facility] [place] Appointment Type:Pain Management - Follow Up (FT) [facility] noteNo [facility] [employer] Other [facility] [employer] Other Evaluation note* Diagnosis Arteriosclerosis of coronary artery- Primary Status post coronary angioplasty Postsurgical percutaneous transluminal coronary angioplasty status Dyslipidemia Other and unspecified hyperlipidemia Essential hypertension Unspecified essential hypertension Obesity (BMI 30.0-34.9) At risk for falls Personal history of fall documented in this encounter [facility] Work Phone: Evaluation note* Diagnosis Onset Date Resolution Status Abnormal intentional weight loss acute ASHD (arteriosclerotic heart disease) acute Hypercholesterolemia acute Impaired fasting glucose acu te Memory deficit acute Primary hypertension acute [facility] Work Phone: Evaluation note* Diagnosis Onset Date Resolution Status Impaired fasting glucose acu te Lumbar spondylosis acute Memory deficit acute Primary hypertension acute Abnormal intentional weight loss acute ASHD (arteriosclerotic heart disease) acute Impaired fasting glucose acu te Primary hypertension acute [facility] Work Phone: Evaluation note* Diagnosis Onset Date Resolution Status ASHD (arteriosclerotic heart disease) acute Hypercholesterolemia acute Impaired fasting glucose acu te Lumbar spondylosis acute Polyneuropathy acute Primary hypertension acute Medicare annual wellness visit, subsequent noneactive Screening PSA (prostate specific antigen) noneactive [facility] Work Phone: History general Narrative - Reported* Type Description Date Medical History HTN Medical History neuropathy Medical History arthritis Medical History heart stent Medical History cataracts Medical History Gout Medical History high cholesterol Medical History prostate Surgical History heart cath with stent placed Surgical History back surgery x 2 Surgical History hernia repair Hospitalization History see surg hx [facility] [employer] Other History general Narrative - Reported* Type [...] eyes Hospitalization History see surgery list [facility] Other History general N[facility]ative - [facility] [employer] Other Hospital course Narrative No data available for this section [facility] Discharge instructions No data available for this section [facility] progress note No data available for this section [facility] [place] reason for referral (narrative)* Consultation (Routine) - Authorized Specialty Diagnoses / Procedures Referred By Contac t Referred To Contact Cardiology Diagnoses Arteriosclerosis of coronary artery Procedures Follow Up In Cardiology Marisol Connors MD [address] [place] [address] 2, [address] [place] [address] Marisol Connors MD [address] [place] [address] 2, [address] [place] [address] Referral ID Status Reason Start Date Expiration Date V isits Requested Visits Authorized [id number] Authorized 11/14/2023 11/13/2024 1 1 [facility] Work Phone: Summary Purpose Family History Relationship [...] 1 Lumbar spondylosis ( M47.816) Referral [facility] Referring Provider First Name Devang Referring Provider Last Name Rafael Referring Provider Specialty Internal Me dicine Referred Organization [facility] Referred Provider Allison Kenyon Referred Address [address] [facility] [place],[address] Referred Provider Specialty Neurological Surgery Referral Priority [...] section and content) DATE CREATED AUTHOR 04/23/2018 [facility] DATE CREATED AUTHOR AUTHOR'S ORGANIZ ATION 09/10/2020 [facility] DATE CREATED AUTHOR AUTHOR'S ORGANIZ ATION 12/26/2021 [facility] DATE CREATED AUTHOR AUTHOR'S ORGANIZ ATION 03/11/2023 [facility] DATE CREATED AUTHOR AUTHOR'S ORGANIZ ATION 03/11/2023 [employer] DATE CREATED AUTHOR AUTHOR'S ORGANIZ ATION 03/18/2023 [facility] DATE CREATED AUTHOR AUTHOR'S ORGANIZ ATION 11/18/2023 [facility] DATE CREATED AUTHOR AUTHOR'S ORGANIZ ATION 03/01/2024 [facility] EPIC DATE CREATED AUTHOR AUTHOR'S ORGANIZ ATION 03/16/2024 Gavino Walters [facility] Care Team (unrecognized sect ion and [...] January 18, 2024 End: January 18, 2024 [employer] Relationship Specialty Start Date End Date RafaelDevang [address] [place] [address] [place] [address] PCP - General Internal Medicine 11/14/23 Team [...] BE BASED ON THE PRIMARY CLINICAL RECORDS. [facility]. provides no warranty or guarantee of the accuracy or completeness of information in this document.
--- NOTE | 2024-05-02 20:15 | CT_ITS ---
[address] [address] Patient Name: RIDGE ROLAND MRN: [id number] date: 1945 Sex: M Assigned Patient Location: ER Current Patient Location: Accession/Order Number: [id number] Exam Date: 05/02/2024 20:45 Report Date: 05/02/2024 21:30 At the request of: NAN BARBOUR Procedure: CT cervical spine wo con EXAM: CT cervical spine wo con HISTORY: Fall with injury to the back of the head. TECHNIQUE: Axial CT scans through the cervical spine were obtained without contrast administration. Sagittal and coronal reconstruction images were obtained. A trauma Dose reduction techniques were achieved by using: automated exposure control and/or adjustment of mA and /or kV according to patient size and/or the use of an iterative reconstruction technique. COMPARISON: None. FINDINGS: No acute fracture or posttraumatic malalignment is shown. Moderate to severe left C2-C3 and C4-C5 facet arthropathy with fusion of the left C2-C3 facet joint. Moderate to severe stenosis of the right C3-C4 neural foramen secondary to uncovertebral hypertrophy and moderate right facet hypertrophy. A small posterior central disc protrusion at C5-C6. Slight degenerative spondylolisthesis of C6 on C7. The prevertebral soft tissue space appears normal. Visualized intracranial contents appear normal. The visualized neck shows no adenopathy. Visualized lung apices are clear. CT/CT cervical spine wo con IMPRESSION: No acute fracture or posttraumatic malalignment. Moderate to severe left C2-C3 and C4-C5 facet arthropathy with fusion of the left C2-C3 facet joint. Moderate to severe stenosis of the right C3-C4 neural foramen. Electronically authenticated by: AGAPITO PRESTON Date: 05/02/2024 21:30
--- NOTE | 2024-05-02 20:15 | CT_ITS ---
The [address] [address] Patient Name: RIDGE ROLAND MRN: [id number] date: 1945 Sex: M Assigned Patient Location: ER Current Patient Location: ER Accession/Order Number: [id number] Exam Date: 05/02/2024 20:45 Report Date: 05/02/2024 21:20 At the request of: NAN BARBOUR Procedure: CT head/brain wo con EXAM: CT head/brain wo con HISTORY: Patient fell and hit the back of the head. TECHNIQUE: Axial CT scans through the head were obtained without IV contrast administration. Dose reduction techniques were achieved by using: automated exposure control and/or adjustment of mA and /or kV according to patient size and/or the use of an iterative reconstruction technique. COMPARISON: 12/24/2023. FINDINGS: Mild periventricular low attenuation in the cerebral hemispheres without associated mass effect. To the limit of CT, the posterior fossa appears unremarkable. No intracranial hemorrhage is present. No depressed skull fracture is present. The ventricular system and cortical sulci are prominent. No area of abnormal mass effect is shown. The visualized orbits show no gross mass. The visualized paranasal sinuses show no air-fluid levels. Mastoid air cells are clear. CT/CT head/brain wo con IMPRESSION: 1. No depressed skull fracture or intracranial hemorrhage. 2. Mild old microvascular ischemic changes. Age-related cerebral volume loss. Electronically authenticated by: AGAPITO PRESTON Date: 05/02/2024 21:20
--- NOTE | 2024-05-02 20:38 | ED.HEATRA1 ---
HPI HPI - Head Injury General Chief complaint: Head Injury Stated complaint: Fall, Head Injury Time Seen by Provider: 05/02/24 20:15 Source: patient Mode of arrival: Wheelchair Limitations: no limitations History of Present Illness HPI Narrative: history of neuropathy and not infrequent falls. Was about to walk into his home and step up the stair and loss his balance falling back and striking his head. Denies LOC, nausea or vomiting. No dizziness or neck pain. Has back pain but this is chronic. s/p 3 past back surgeries. Denies other injury. No abdominal pain or chest pain. Denies injury to his extremities Related Data Home Medications ?Medication ?Instructions ?Recorded ?Confirmed allopurinol 300 mg tablet mg 05/02/24 amitriptyline 10 mg tablet mg 05/02/24 amlodipine 5 mg tablet mg 05/02/24 atorvastatin 40 mg tablet mg 05/02/24 etodolac 500 mg tablet mg 05/02/24 hydrochlorothiazide 25 mg tablet mg 05/02/24 losartan 25 mg tablet mg 05/02/24 potassium chloride 20 mEq meq PO 05/02/24 tablet,extended release(part/cryst) (Klor-Con M) Allergies Allergy/AdvReac Type Severity Reaction Status Date / Time No Known Drug Allergies Allergy Verified 05/02/24 20:11 Opioid HPI Opioid Management Most Recent Pain and Opioid Data: No Data to Display Review of Systems ROS Status of ROS 10 or more systems reviewed and unremarkable except as noted in history and below [facility] Social History Smoking status: Former smoker Exam Constitutional Vital Signs, click to edit/add: Last Vital Signs Temp 98.6 F 05/02/24 20:05 Pulse 63 05/02/24 23:09 Resp 20 05/02/24 23:09 BP 151/84 H 05/02/24 23:09 Pulse Ox 95 05/02/24 23:09 O2 Del Method Room Air 05/02/24 23:09 Common normals: no apparent distress, average body habitus, oriented x3, no limitations, healthy appearing, alert and well nourished [facility] Head and scalp: other (abrasion mid occipital scalp. minor blood present) Eye Common normals: PERRL and EOMs intact bilaterally Chest Common normals: inspection of chest normal and palpation of chest normal Respiratory Common normals: normal respiratory effort, no retractions, no use of accessory muscles and clear to auscultation bilaterally Cardio Common normals: regular rate, regular rhythm, S1 normal heart sound and S2 normal heart sound GI Common normals: Normal to inspection, nondistended, normoactive bowel sounds present, soft to palpation and non-tender Extremity Common normals: normal to inspection Neuro Common normals: oriented x3, CN's II-XII intact bilaterally, moves all extremities and no focal motor deficits Psych Appearance: grossly normal Course Vital Signs Vital signs: Vital Signs Temperature 98.6 F 05/02/24 20:05 Pulse Rate 71 05/02/24 20:05 Respiratory Rate 16 05/02/24 20:05 Blood Pressure 110/67 05/02/24 20:05 Pulse Oximetry 96 05/02/24 20:05 Oxygen Delivery Method Room Air 05/02/24 20:05 Temperature 98.6 F 05/02/24 20:05 Pulse Rate 63 05/02/24 23:09 Respiratory Rate 20 05/02/24 23:09 Blood Pressure 151/84 H 05/02/24 23:09 Pulse Oximetry 95 05/02/24 23:09 Oxygen Delivery Method Room Air 05/02/24 23:09 MDM - Head Injury MDM Narrative Medical decision making narrative: patient presents after fall striking the back of his head sustaining an abrasion injury. During the time he was waiting in the department and began to complain of left hip and knee pain. exam of both unremarkable but xrays ordered CT results return and neg acute finding of brain and C-spine. Xrays of left hip and knee pending xray of hip is neg for acute finding. knee xray pending. Patient resting comfortably and tetanus shot ordered Discharge Plan Discharge Stand Alone Forms: Portal Instructions Chief Complaint: Head Injury Clinical Impression: Closed head injury, Abrasion of scalp, Strain of left hip Patient Disposition: Home, Self-Care Prescriptions / Home Meds: No Action atorvastatin 40 mg tablet amlodipine 5 mg tablet potassium chloride [Klor-Con M20] 20 mEq tablet,ER particles/crystals PO amitriptyline 10 mg tablet losartan 25 mg tablet allopurinol 300 mg tablet hydrochlorothiazide 25 mg tablet etodolac 500 mg tablet Print Language: Maltese Instructions: Muscle Strain (ED), Head Injury (ED), Abrasion (ED) Additional Instructions: follow up with your doctor next week for recheck Referrals: Devang Keyes DO [Primary Care Provider] - 1 week Discharge Date/Time: 05/02/24 23:12
--- NOTE | 2024-05-02 21:01 | XR_ITS ---
The [address] [address] Patient Name: RIDGE ROLAND MRN: [id number] date: 1945 Sex: M Assigned Patient Location: ER Current Patient Location: ER Accession/Order Number: [id number] Exam Date: 05/02/2024 21:15 Report Date: 05/02/2024 22:06 At the request of: NAN BARBOUR Procedure: XR hip LT 2V w/ pelvis XR hip LT 2V w/ pelvis: HISTORY: fall fall COMPARISON: None available. TECHNIQUE: 3 left hip/bony pelvis views are submitted. FINDINGS: BONES/JOINT SPACES: There is no acute fracture or dislocation. There is a moderate degree of degenerative osteoarthritis of each hip joint, right greater than left. Pelvic ring structures are well-maintained. SOFT TISSUES: The soft tissues are unremarkable. XR/XR hip LT 2V w/ pelvis IMPRESSION: No definitive acute fracture of the left hip or bony pelvis. Electronically authenticated by: ESTER VASQUEZ Date: 05/02/2024 22:06
--- NOTE | 2024-05-02 21:01 | XR_ITS ---
The [address] [address] Patient Name: RIDGE ROLAND MRN: [id number] date: 1945 Sex: M Assigned Patient Location: ER Current Patient Location: ED.MAIN Accession/Order Number: [id number] Exam Date: 05/02/2024 21:15 Report Date: 05/02/2024 23:05 At the request of: NAN BARBOUR Procedure: XR knee LT 3V XR knee LT 3V: HISTORY: injury injury COMPARISON: None available. TECHNIQUE: 3 views of the left knee are submitted. FINDINGS: BONES/JOINT SPACES: There is no acute fracture or dislocation. There is moderate degeneration medially and mild degeneration laterally. There is mild osteophytosis of the patellofemoral joint. SOFT TISSUES: There is no significant joint effusion. There is chondrocalcinosis. 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 There is chondrocalcinosis of the soft tissues. Electronically authenticated by: ESTER VASQUEZ Date: 05/02/2024 23:05
--- NOTE | 2024-05-02 21:06 | PC.NURSE ---
bruise and abrasion top back ooh head, quarter size
[2024-05-02 22:05] VITALS: BP 150/82; PULSE 60; O2SAT 99
[2024-05-02] MEDS: ADACEL DIPH,PERTUSS(ACELL),TET VAC/PF 0.5 ML ADULT SYRINGE IM (22:52)
[2024-05-02 23:09] VITALS: BP 151/84; PULSE 63; O2SAT 95
== END 2024-05-02 23:12 | disposition home or self-care (01) ==
PROVIDERS: Emergency Provider Internal Medicine; PCP Internal Medicine
DX: S09.8XXA Other specified injuries of head, initial encounter (principal); S76.012A Strain of muscle, fascia and tendon of left hip, initial encounter; S00.01XA Abrasion of scalp, initial encounter; W19.XXXA Unspecified fall, initial encounter; Z98.890 Other specified postprocedural states; Z87.891 Personal history of nicotine dependence; Z23 Encounter for immunization
CPT/HCPCS: 70450; 72125; 73502; 73562; 90471; 90715; 99285

== ENCOUNTER 2024-05-27 07:34 | Outpatient (OUT) | payer MEDICARE, SELFPAY ==
--- OUTSIDE RECORDS SUMMARY | 2024-05-27 07:37 | XMS_ITS | CCD ---
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 EDT, Height/Length Dosing, 102.4, kg, 01/25/24 13:38:00 EDT, Weight Dosing Viagra 50 mg Tab: See Instructions, 1-2 tab(s) po 1 hr before sexual acitivity. do not exceed 2 tabs in 24 hrs., # 15 tab(s), Refills(s) 3, Pharmacy: [facility]/pharmacy #[id number], 193, cm, 08/31/22 9:11:00 EDT, Height/Length Dosing, 114.5, kg, 08/31/22 9:11:00 EDT, Weight Dosing... amitriptyline 10 mg Tab: 10 mg = 1 tab(s), Oral, Once a day (at bedtime), X 30 day(s), # 30 tab(s), Refills(s) 1, Pharmacy: [facility]/pharmacy #[id number], 193, cm, 03/14/24 9:55:00 EDT, Height/Length Dosing, 104.5, kg, 03/14/24 9:55:00 EDT, Weight Dosing pregabalin 25 mg Cap: 25 mg = 1 cap(s), Oral, BID, # 60 cap(s), Refills(s) 2, Pharmacy: [facility]/pharmacy #[id number], 193, cm, 11/09/23 11:29:00 EST, Height/Length [...] list: All Problems Hypercholesterolemia / SNOMED CT 28906704 / Confirmed Hernia, inguinal, right / SNOMED CT 405988425 / Confirmed BPH with urinary obstruction / SNOMED CT 1707372065 / Confirmed Elevated PSA / SNOMED CT 9421910562 / Confirmed Impotence / SNOMED CT 4584515103 / Confirmed Urinary frequency / SNOMED CT 968209256 / Confirmed Nocturia / SNOMED CT 455342920 / Confirmed Weak urinary stream / SNOMED CT 431186929 / Confirmed Gross hematuria / SNOMED CT 918956726 / Confirmed Anticoagulated / SNOMED CT 856975451 / Confirmed Urge incontinence / SNOMED CT 097388449 / Confirmed Chronic prostatitis / SNOMED CT 57925106 / Confirmed Dysuria / SNOMED CT 74069667 / Confirmed Urinary retention / SNOMED CT 596245515 / Confirmed BMI 31.0-31.9,adult / SNOMED CT 843735818 / Confirmed Incomplete bladder emptying / SNOMED CT 213398890 / Confirmed Post-void dribbling / SNOMED CT 971666965 / Confirmed Incontinence without sensory awareness / SNOMED CT 0995884163 / Confirmed At risk for falls / SNOMED CT 500210654 / Possible ED (erectile dysfunction) / SNOMED CT 0667659096 / Confirmed Leaking of urine / SNOMED CT 8762002477 / Confirmed Urinary incontinence / SNOMED CT 3761581793 / Confirmed Prostate cancer screening / SNOMED CT 724129769 / Confirmed Resolved: Hypertension / SNOMED CT 3259246884 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 5/5 strength Integumentary: Warm, Dry, Flushing. Neurologic: Alert, Oriented. Psy (more content not included)... [facility] Comment on above: Result Comment: Elec tronically Signed By: Sophie SHIPMAN, Stephenie\.br\Date and Time Signed: 03/14/24 10:17 EDT Office/Clinic Note-Physician on 03-14-2024 Office/Clinic Note-Physician [id number]#1.00T IFF Normal [facility] Patient Correspondenceon Patient Correspondence [id number]#1.00T IFF Normal [facility] Patient Correspondence [id number]#1.00T IFF Normal [facility] Patient History Officeon Patient History Office [id number]#1.00T IFF Normal [facility] Consent for Treatmenton 01-04 Consent for Treatment [id number]#1.00 TIFF Normal [facility] Consultation Noteon 01-25-20 Consultation Note Patient: [...] day(s), # 60 cap(s), Refills(s) 1, [id number] 193, cm, 01/25/24 13:38:00 EDT, Height/Length Dosing, 102.4, kg, 01/25/24 13:38:00 EDT, Weight Dosing Viagra 50 mg Tab: See Instructions, 1-2 tab(s) po 1 hr before sexual acitivity. do not exceed 2 tabs in 24 hrs., # 15 tab(s), Refills(s) 3, Pharmacy: [facility]/pharmacy [id number], 193, cm, 08/31/22 9:11:00 EDT, Height/Length Dosing, 114.5, kg, 08/31/22 9:11:00 EDT, Weight Dosing... pregabalin 25 mg Cap: 25 mg = 1 cap(s), Oral, BID, # 60 cap(s), Refills(s) 2, [id number] 193, cm, 11/09/23 11:29:00 [...] list: All Problems Hypercholesterolemia / SNOMED CT 02724397 / Confirmed Hernia, inguinal, right / SNOMED CT 709724889 / Confirmed BPH with urinary obstruction / SNOMED CT 6434244136 / Confirmed Elevated PSA / SNOMED CT 4390119961 / Confirmed Impotence / SNOMED CT 7805200000 / Confirmed Urinary frequency / SNOMED CT 832551766 / Confirmed Nocturia / SNOMED CT 778494764 / Confirmed Weak urinary stream / SNOMED CT 522856399 / Confirmed Gross hematuria / SNOMED CT 162290175 / Confirmed Anticoagulated / SNOMED CT 218375996 / Confirmed Urge incontinence / SNOMED CT 764650564 / Confirmed Chronic prostatitis / SNOMED CT 12451265 / Confirmed Dysuria / SNOMED CT 77182806 / Confirmed Urinary retention / SNOMED CT 678253690 / Confirmed BMI 31.0-31.9,adult / SNOMED CT 003012165 / Confirmed Incomplete bladder emptying / SNOMED CT 240845259 / Confirmed Post-void dribbling / SNOMED CT 626262217 / Confirmed Incontinence without sensory awareness / SNOMED CT 7974907494 / Confirmed At risk for falls / SNOMED CT 544433306 / Possible ED (erectile dysfunction) / SNOMED CT 9356633299 / Confirmed Leaking of urine / SNOMED CT 4530267264 / Confirmed Urinary incontinence / SNOMED CT 2702752449 / Confirmed Prostate cancer screening / SNOMED CT 856232623 / Confirmed Resolved: Hypertension / SNOMED CT 5001559783 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 [facility] Comment on above: Result Comment: Elec tronically Signed By: Sophie SHIPMAN, Stephenie\.br\Date and Time Signed: 01/25/24 13:48 EDT Office/Clinic Note-Physician on 01-25-2024 Office/Clinic Note-Physician [id number]#1.00 TIFF Normal [facility] Patient Correspondenceon Patient Correspondence [id number]#1.00 TIFF Normal [facility] Patient Correspondence [id number]#1.00 TIFF Normal [facility] Patient Correspondence [id number]#1.00 TIFF Normal [facility] Patient History Officeon Patient History Office [id number]#1.00 TIFF Normal [facility] Consent for Procedure/Surger yon 01-09-2024 Consent for Procedure/Surgery [id number]#1.00T IFF Normal [facility] Consent for Treatmenton Consent for Treatment [id number]#1.00T IFF Normal [facility] Discharge Instructionson Discharge Instructions [id number]#1.00T IFF Normal [facility] IntraOperative Documentson 0 01-09-2024 IntraOperative Documents [id number]#1.00T IFF Normal [facility] Main OR Intraoperative Recor don 01-09-2024 Main OR Intraoperative Record IntraOp Document Type FTPM Summary Primary Physician: Bert Huang DO Finalized Date/Time: 01/09/24 11:31:11 Pt. Name: RIDGE ROLAND/Sex: 1945 Male Med Rec #: [id number] Physician: Bert Huang DO Financial #: [id number] Pt. Type: P Room/Bed: / Admit/Disch: 01/09/24 [...] Tomasa Davidson Role Performed Surgeon - Primary Lending Activities Supervisor - Primary Scrub - Primary Time In 01/09/24 11:25:00 01/09/24 11:25:00 01/09/24 11:25:00 Time Out 01/09/24 11:31:00 01/09/24 11:31:00 01/09/24 11:31:00 Procedure SACROILIAC JOINT SACROILIAC JOINT SACROILIAC JOINT INJECTION(Bilateral) INJECTION(Bilateral) INJECTION(Bilateral) Comments Last Modified By: Gerry JENNINGS, Savannah Garrett RN, Savannah Tsai RN 01/09/24 11:31:02 01/09/24 11:31:02 01/09/24 11:31:02 Entry 4 Case Attendee Scott Craig Role Performed Privacy Analyst Time In 01/09/24 11:25:00 Time Out 01/09/24 [...] and tissue Entry 1 Skin Integrity Intact, Flushing, Warm, and Skin Abnormality No Dry Outcomes [...] Met? Y (more content not included)... Normal [facility] Main OR Preoperative Recordo n 01-09-2024 Main OR Preoperative Record Holding Area Document Type FTPM Summary Primary Physician: Bert Huang DO Finalized Date/Time: 01/09/24 11:01:07 Pt. Name: ASUNCION RIDGEVirginia [place]/Sex: 1945 Male Med Rec #: [id number] Physician: Bert Huang DO Financial #: [id number] Pt. Type: P Room/Bed: / Admit/Disch: 01/09/24 [...] By: Anupama Huggins RN 01/09/24 11:01 Normal [facility] Automated epithelial cells c ount in urine sediment (number/area)on 12-24-2023 Epithelial cells Auto (Urine sed) [#/Area] FEW #/LPF NONE/RARE [facility] Automated leukocytes count i n urine sediment (number/area)on 12-24-2023 WBC Auto (Urine sed) [#/Area] NONE SEEN #/HPF 0-2 [facility] Automated urine specific gra vity by refractometryon 12-24-2023 Specific gravity Refractometry automated (U) [Rel density] 1.020 1.005-1.025 [facility] Basophils Auto (Bld) [#/Vol] on 12-24-2023 Basophils (Bld) [#/Vol] 0.0 10 3/uL 0.0-0.1 [facility] Basophils/100 WBC Auto (Bld) on 12-24-2023 Basophils/100 WBC (Bld) 0.4 % 0.2-2.0 [facility] Bilirubin Auto test strip (U ) [Mass/Vol]on 12-24-2023 Bilirubin (U) [Mass/Vol] Negative NEGATIVE [facility] Color Auto (U)on 12-24-2023 Color (U) YELLOW YELLOW [facility] Eosinophils/100 WBC Auto (Bl d)on 12-24-2023 Eosinophils/100 WBC (Bld) 0.9 % 0.9-7.0 [facility] Erythrocyte distribution wid th Auto (RBC) [Ratio]on 12-24-2023 Erythrocyte distribution width (RBC) [Ratio] 13.3 % 11.0-15.0 [facility] Estimated glomerular filtrat ion rate (GFR) non- Americanon 12-24-2023 GFR/1.73 sq M.predicted among non-blacks MDRD (S/P/Bld) [Vol rate/Area] mL/min/{1.73_m2} >=60 [facility] Hematocrit Auto (Bld) [Volum e fraction]on 12-24-2023 Hematocrit (Bld) [Volume fraction] 45.1 % 42.0-54.0 [facility] Hemoglobin [Mass/volume] in Bloodon 12-24-2023 Hemoglobin (Bld) [Mass/Vol] 15.3 g/dL 14.0-18.0 [facility] Ketones Auto test strip (U) [Mass/Vol]on 12-24-2023 Ketones (U) [Mass/Vol] Negative NEGATIVE [facility] Laboratory - Chemistry and C hemistry - challengeon 12-24-2023 Calcium [Mass/Vol] 9.1 mg/dL 8.5-10.1 [facility] Chloride [Moles/Vol] 102 mmol/L 98-107 [facility] CO2 [Moles/Vol] 25.5 mmol/L 21.0-32.0 [facility] Creatinine [Mass/Vol] 0.73 mg/dL 0.70-1.30 [facility] GFR/1.73 sq M.predicted MDRD (S/P/Bld) [Vol rate/Area] mL/min/{1.73_m2} >=60 [facility] Glucose [Mass/Vol] 113 mg/dL 74-106 [facility] Potassium [Moles/Vol] 3.8 mmol/L 3.5-5.1 [facility] Sodium [Moles/Vol] 138 mmol/L 136-145 [facility] Urea nitrogen [Mass/Vol] 13.0 mg/dL 7.0-18.0 [facility] Urea nitrogen/Creatinine [Mass ratio] 17.8 mg/mg [facility] Laboratory - Hematology and Cell countson 12-24-2023 Immature granulocytes/100 WBC (Bld) 0.6 % 0.0-0.5 [facility] Leukocytes [#/volume] correc yina for nucleated erythrocytes in Blood by Automated counon 12-24-2023 WBC corrected for nucl RBC Auto (Bld) [#/Vol] 9.5 10 3/uL 4.0-11.0 [facility] Lymphocytes Auto (Bld) [#/Vo l]on 12-24-2023 Lymphocytes (Bld) [#/Vol] 1.1 10 3/uL 1.2-3.8 [facility] Lymphocytes/100 WBC Auto (Bl d)on 12-24-2023 Lymphocytes/100 WBC (Bld) 11.5 % 20.5-60.0 [facility] MCH Auto (RBC) [Entitic mass ]on 12-24-2023 MCH (RBC) [Entitic mass] 31.2 pg 25.9-34.0 [facility] MCHC Auto (RBC) [Mass/Vol]on 12-24-2023 MCHC (RBC) [Mass/Vol] 33.9 g/dL 29.9-35.2 [facility] MCV Auto (RBC) [Entitic vol] on 12-24-2023 MCV (RBC) [Entitic vol] 92.0 fL 80.0-94.0 [facility] Monocytes Auto (Bld) [#/Vol] on 12-24-2023 Monocytes (Bld) [#/Vol] 0.7 10 3/uL 0.3-0.8 [facility] Monocytes/100 WBC Auto (Bld) on 12-24-2023 Monocytes/100 WBC (Bld) 7.7 % 1.7-12.0 [facility] Mucus LM Ql (Urine sed)on Mucus Ql (Urine sed) SMALL NONE SEEN [facility] Neutrophils Auto (Bld) [#/Vo l]on 12-24-2023 Neutrophils (Bld) [#/Vol] 7.5 10 3/uL 1.4-6.5 [facility] Neutrophils/100 WBC Auto (Bl d)on 12-24-2023 Neutrophils/100 WBC (Bld) 78.9 % 43.0-75.0 [facility] No Panel Informationon 12-24 Eosinophils # (Auto) 0.1 10 3/uL 0.0-0.[address] [facility] Immature Granulocyte # (Auto) 0.06 10 3/uL 0.00-0.03 [facility] Platelet mean volume Auto (B ld) [Entitic vol]on 12-24-2023 Platelet mean volume (Bld) [Entitic vol] 10.7 fL 9.5-13.5 [facility] Platelets Auto (Bld) [#/Vol] on 12-24-2023 Platelets (Bld) [#/Vol] 197 10 3/uL 150-450 [facility] Protein Auto test strip (U) [Mass/Vol]on 12-24-2023 Protein (U) [Mass/Vol] Negative NEG/TRACE [facility] RBC Auto (Bld) [#/Vol]on RBC (Bld) [#/Vol] 4.90 10 6/uL 4.70-6.10 [facility] Serum or plasma anion gap de terminationon 12-24-2023 Anion gap [Moles/Vol] 14.3 mmol/L [facility] Specific gravity Auto test s trip (U) [Rel density]on 12-24-2023 Specific gravity (U) [Rel density] CLEAR CLEAR [facility] Urine bacteria detection by automated methodon 12-24-2023 Bacteria Auto Ql (U) NONE SEEN #/HPF NONE SEEN [facility] Urine glucose measurement by test strip (mass/volume)on 12-24-2023 Glucose Test strip (U) [Mass/Vol] Negative NEGATIVE [facility] Urine hemoglobin detection b y automated test stripon 12-24-2023 Hemoglobin Auto test strip Ql (U) Negative NEGATIVE [facility] Urine nitrite detection by a utomated test stripon 12-24-2023 Nitrite Auto test strip Ql (U) Negative NEGATIVE [facility] Urine sediment leukocyte cou nt by microscopy (number/high power field)on 12-24-2023 WBC LM.HPF (Urine sed) [#/Area] NONE SEEN #/HPF NONE SEEN [facility] Urobilinogen Auto test strip (U) [Mass/Vol]on 12-24-2023 Urobilinogen Qn (U) 0.2 {Kathia'U}/dL 0.2-1.0 [facility] pH Auto test strip (U)on pH (U) 6.5 [pH] 5.0-9.0 [facility] Patient Correspondenceon Patient Correspondence [id number]#1.00T IFF Normal [facility] Insurance Correspondence Off iceon 12-17-2023 Insurance Correspondence Office [id number]#2.00 TIFF Normal [facility] Patient Educationon 12-14-19 Patient Education Urology [...] stimulation). ? For women, using a medical biller to prevent urine leaks. This is a [...] urine. ? (more content not included)... Normal [facility] Urology Office/Clinic Noteon 12-14-2023 Urology Office/Clinic [...] needed [facility] [address] [place] [phone] Additional Instructions: Patient Education Urinary Incontinence I, [...] fluoroscopic guidance (05/01/ (more content not included)... [facility] Comment on above: Result Comment: Elec tronically Signed By: Homero XAVIER MD\.br\Date and Time Signed: 12/14/23 11:03 EST\.br\Electronically Co-Signed By: Lina Perkinsbr\Date and Time Co-Signed: 12/14/23 11:01 EST Consent for Treatmenton Consent for Treatment [id number]#1.00T IFF [facility] Consultation Noteon 12-10-19 Consultation Note [...] day(s), # 30 tab(s), Refills(s) 6, Pharm[facility]: [facility] #[id number], 193, cm, 05/29/23 8:59:00 EDT, Height/Length Dosing, 108.9, kg, 03/19/23 8:54:00 EDT, Weight Dosing Viagra 50 mg Tab: See Instructions, 1-2 tab(s) po 1 hr before sexual acitivity. do not exceed 2 tabs in 24 hrs., # 15 tab(s), Refills(s) 3, Pharmacy: [facility]/pharmacy #[id number], 193, cm, 08/31/22 9:11:00 EDT, Height/Length Dosing, 114.5, kg, 08/31/22 9:11:00 EDT, Weight Dosing... pregabalin 25 mg Cap: 25 mg = 1 cap(s), Oral, BID, # 60 cap(s), Refills(s) 2, Pharmacy: [facility]/pharmacy #[id number], 193, cm, 11/09/23 11:29:00 EST, Height/Length [...] list: All Problems Hypercholesterolemia / SNOMED CT 11682993 / Confirmed Hernia, inguinal, right / SNOMED CT 595671343 / Confirmed BPH with urinary obstruction / SNOMED CT 8506858249 / Confirmed Elevated PSA / SNOMED CT 1672550746 / Confirmed Impotence / SNOMED CT 7510744214 / Confirmed Urinary frequency / SNOMED CT 043573360 / Confirmed Nocturia / SNOMED CT 350996376 / Confirmed Weak urinary stream / SNOMED CT 700093255 / Confirmed Gross hematuria / SNOMED CT 423167371 / Confirmed Anticoagulated / SNOMED CT 952562854 / Confirmed Urge incontinence / SNOMED CT 205533832 / Confirmed Chronic prostatitis / SNOMED CT 51390031 / Confirmed Dysuria / SNOMED CT 61290136 / Confirmed Urinary retention / SNOMED CT 289614756 / Confirmed BMI 31.0-31.9,adult / SNOMED CT 828546116 / Confirmed Incomplete bladder emptying / SNOMED CT 620506705 / Confirmed Post-void dribbling / SNOMED CT 922915155 / Confirmed Incontinence without sensory awareness / SNOMED CT 4908567865 / Confirmed At risk for falls / SNOMED CT 337832609 / Possible ED (erectile dysfunction) / SNOMED CT 1455042562 / Confirmed Leaking of urine / SNOMED CT 9548983839 / Confirmed Urinary incontinence / SNOMED CT 5813334187 / Confirmed Prostate cancer screening / SNOMED CT 159934468 / Confirmed Resolved: Hypertension / SNOMED CT 5634008451 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 [facility] Comment on above: Result Comment: Elec tronically Signed By: Stephenie Barrios PA-C\.br\Date and Time Signed: 12/10/23 12:53 EST\.br\Electronically Co-Signed By: Bert Huang DO\.br\Date and Time Co-Signed: 12/11/23 09:21 EST Office/Clinic Note-Physician on 12-10-2023 Office/Clinic Note-Physician [id number]#1.00T IFF Normal [facility] Patient Correspondenceon Patient Correspondence [id number]#1.00T IFF Normal [facility] Patient Correspondence [id number]#1.00T IFF Normal [facility] Patient History Officeon Patient History Office [id number]#1.00T IFF Normal [facility] Consent for Treatmenton Consent for Treatment [id number]#1.00 TIFF Normal [facility] Consultation Noteon 11-09-19 24 Consultation Note [...] day(s), # 30 tab(s), Refills(s) 6, Pharmacy: [facility]/pharmacy #[id number], 193, cm, 05/29/23 8:59:00 EDT, Height/Length Dosing, 108.9, kg, 03/19/23 8:54:00 EDT, Weight Dosing Viagra 50 mg Tab: See Instructions, 1-2 tab(s) po 1 hr before sexual acitivity. do not exceed 2 tabs in 24 hrs., # 15 tab(s), Refills(s) 3, [id number] 193, cm, 08/31/22 9:11:00 EDT, Height/Length Dosing, 114.5, kg, 08/31/22 9:11:00 EDT, Weight Dosing... pregabalin 25 mg Cap: 25 mg = 1 cap(s), Oral, BID, # 60 cap(s), Refills(s) 2, [id number] 193, cm, 11/09/23 11:29:00 [...] list: All Problems Hypercholesterolemia / SNOMED CT 73026493 / Confirmed Hernia, inguinal, right / SNOMED CT 495768138 / Confirmed BPH with urinary obstruction / SNOMED CT 0028866611 / Confirmed Elevated PSA / SNOMED CT 8311499975 / Confirmed Impotence / SNOMED CT 5284985234 / Confirmed Urinary frequency / SNOMED CT 245271599 / Confirmed Nocturia / SNOMED CT 507616099 / Confirmed Weak urinary stream / SNOMED CT 989123760 / Confirmed Gross hematuria / SNOMED CT 548117836 / Confirmed Anticoagulated / SNOMED CT 574419675 / Confirmed Urge incontinence / SNOMED CT 136273752 / Confirmed Chronic prostatitis / SNOMED CT 97438792 / Confirmed Dysuria / SNOMED CT 89499232 / Confirmed Urinary retention / SNOMED CT 461347394 / Confirmed BMI 31.0-31.9,adult / SNOMED CT 851272168 / Confirmed Incomplete bladder emptying / SNOMED CT 790459527 / Confirmed Post-void dribbling / SNOMED CT 325239555 / Confirmed Incontinence without sensory awareness / SNOMED CT 5666795443 / Confirmed At risk for falls / SNOMED CT 763998395 / Possible ED (erectile dysfunction) / SNOMED CT 9981138707 / Confirmed Leaking of urine / SNOMED CT 0848477239 / Confirmed Urinary incontinence / SNOMED CT 4880069701 / Confirmed Prostate cancer screening / SNOMED CT 286633678 / Confirmed Resolved: Hypertension / SNOMED CT 3596266673 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 Injection sites well-healed Neurologic: Alert, Oriented. Psychiatric: Cooperative, Appropriate mood & affect. Impression and Plan Patient is a 78-year-old male with a past medical history significant for postlaminectomy syndrome, chronic pain, and lumbar spondylosis (more content not included)... [facility] Comment on above: Result Comment: Elec tronically Signed By: Stephenie Barrios PA-C\.br\Date and Time Signed: 11/09/23 11:45 EST Legal Correspondence Officeo n 11-09-2023 Legal Correspondence Office [id number]#1.00 TIFF Normal [facility] Office/Clinic Note-Physician on 11-09-2023 Office/Clinic Note-Physician [id number]#1.00 TIFF Normal [facility] Patient Correspondenceon Patient Correspondence [id number]#1.00 TIFF Normal [facility] Patient Correspondence [id number]#1.00 TIFF Normal [facility] Patient Correspondence [id number]#1.00 TIFF Normal [facility] Patient Correspondence [id number]#1.00 TIFF Normal [facility] Patient History Officeon Patient History Office [id number]#1.00 TIFF Normal [facility] Consent for Procedure/Surger yon 10-08-2023 Consent for Procedure/Surgery [id number]#1.00 TIFF Normal [facility] Consent for Treatmenton Consent for Treatment [id number]#1.00 TIFF Normal [facility] Discharge Instructionson Discharge Instructions [id number]#1.00 TIFF Normal [facility] IntraOperative Documentson 1 12-09-2022 IntraOperative Documents [id number]#1.00 TIFF Normal [facility] Main OR Intraoperative Recor don 10-08-2023 Main OR Intraoperative Record IntraOp Document Type [facility] Summary Primary Physician: Bib Sanchez MD Finalized Date/Time: 10/08/23 08:08:45 Pt. Name: RIDGE ROLAND [place]/Sex: 1945 Male Med Rec #: [id number] Physician: Fabi WALTERS, Bib Jackson Financial #: [id number] Pt. Type: P Room/Bed: / Admit/Disch: 10/08/23 [...] Savannah Ceballos Role Performed Surgeon - Primary Lending Activities Supervisor - Primary Scrub - Primary Time In 10/08/23 07:54:00 10/08/23 07:54:00 10/08/23 07:54:00 Time Out 10/08/23 08:09:00 10/08/23 08:09:00 10/08/23 08:09:00 Procedure LUMBAR RADIO FREQUENCY LUMBAR RADIO FREQUENCY LUMBAR RADIO FREQUENCY ABLATION(Bilateral) ABLATION(Bilateral) ABLATION(Bilateral) Comments Last Modified By: Robin JENNINGS, Tomasa Kelly RN, Tomasa Alexander RN 10/08/23 08:08:31 10/08/23 08:08:31 10/08/23 08:08:31 Entry 4 Case Attendee Adry Smyth (R) Role Performed Privacy Analyst Time In 10/08/23 07:54:00 Time Out 10/08/23 [...] and tissue Entry 1 Skin Integrity Intact, Flushing, Warm, and Skin Abnormality No Dry Outcomes [...] By Neto (more content not included)... Normal [facility] Main OR Preoperative Recordo n 10-08-2023 Main OR Preoperative Record Holding Area Document Type FTPM Summary Primary Physician: Bib Sanchez MD Finalized Date/Time: 10/08/23 07:19:53 Pt. Name: RIDGE ROLAND/Sex: 1945 Male Med Rec #: [id number] Physician: Bib Sanchez MD Financial #: [id number] Pt. Type: P Room/Bed: / Admit/Disch: 10/08/23 [...] By: Sneha Beal RN 10/08/23 07:19 Normal [facility] Operative Reporton 3 Operative Report Patient: [...] side with the identical technique and medications. Winnie were removed and bandages applied. The patient [...] EST Respiratory Rate 15 br/min . Normal [facility] Comment on above: Result Comment: Elec tronically Signed By: Fabi WALTERS, Bib Jackson\.br\Date and Time Signed: 10/08/23 08:08 EST Patient Correspondenceon Patient Correspondence [id number]#1.00T IFF Normal [facility] Insurance Correspondence Off iceon 09-21-2023 Insurance Correspondence Office [id number]#2.00 TIFF [facility] Consent for Treatmenton 09-05 Consent for Treatment [id number]#1.00 TIFF [facility] Consultation Noteon 09-14-20 Consultation Note Patient: KEILA [...] day(s), # 30 tab(s), Refills(s) 6, Pharmacy: [facility]/pharmacy #[id number], 193, cm, 05/29/23 8:59:00 EDT, Height/Length Dosing, 108.9, kg, 03/19/23 8:54:00 EDT, Weight Dosing Viagra 50 mg Tab: See Instructions, 1-2 tab(s) po 1 hr before sexual acitivity. do not exceed 2 tabs in 24 hrs., # 15 tab(s), Refills(s) 3, Pharmacy: [facility]/pharmacy #[id number], 193, cm, 08/31/22 9:11:00 EDT, Height/Length [...] list: All Problems Hypercholesterolemia / SNOMED CT 21317682 / Confirmed Hernia, inguinal, right / SNOMED CT 043715289 / Confirmed BPH with urinary obstruction / SNOMED CT 5629504768 / Confirmed Elevated PSA / SNOMED CT 0072924508 / Confirmed Impotence / SNOMED CT 7782358484 / Confirmed Urinary frequency / SNOMED CT 529930170 / Confirmed Nocturia / SNOMED CT 521286058 / Confirmed Weak urinary stream / SNOMED CT 670469469 / Confirmed Gross hematuria / SNOMED CT 195468358 / Confirmed Anticoagulated / SNOMED CT 780360546 / Confirmed Urge incontinence / SNOMED CT 602494048 / Confirmed Chronic prostatitis / SNOMED CT 09299309 / Confirmed Dysuria / SNOMED CT 59051443 / Confirmed Urinary retention / SNOMED CT 386783221 / Confirmed BMI 31.0-31.9,adult / SNOMED CT 765930324 / Confirmed Incomplete bladder emptying / SNOMED CT 950659147 / Confirmed Post-void dribbling / SNOMED CT 591035043 / Confirmed Incontinence without sensory awareness / SNOMED CT 2841365630 / Confirmed At risk for falls / SNOMED CT 204897999 / Possible ED (erectile dysfunction) / SNOMED CT 9428039643 / Confirmed Leaking of urine / SNOMED CT 4198237862 / Confirmed Urinary incontinence / SNOMED CT 2067795123 / Confirmed Prostate cancer screening / SNOMED CT 865551374 / Confirmed Resolved: Hypertension / SNOMED CT 5969089217 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 Injection site well-healed Neurologic: Alert, Oriented. Psychiatric: Cooperative, Appropriate mood & affect. Results Review Lumbar MRI report once again reviewed Impression and Plan Patient is a 77-year-old male with a past medical history significant cannot for lumbar spondylosis, postlaminectomy syndrome, and chronic low back pain. Patient underwent his second bilateral L3-4 and L4-5 facet med (more content not included)... Normal [facility] Comment on above: Result Comment: Elec tronically Signed By: Stephenie Barrios PA-C\.br\Date and Time Signed: 09/14/23 08:14 EST\.br\Electronically Co-Signed By: Fabi WALTERS, Bib Jackson\.br\Date and Time Co-Signed: 09/24/23 12:00 EST Office/Clinic Note-Physician on 09-14-2023 Office/Clinic Note-Physician [id number]#1.00 TIFF Normal [facility] Patient Correspondenceon Patient Correspondence [id number]#1.00 TIFF Normal [facility] Patient Correspondence [id number]#1.00 TIFF Normal [facility] Patient Correspondence [id number]#1.00 TIFF Normal [facility] Patient History Officeon Patient History Office [id number]#1.00 TIFF [facility] Consent for Procedure/Surger yon 09-04-2023 Consent for Procedure/Surgery [id number]#1.00 TIFF Normal [facility] Consent for Treatmenton 08-07 Consent for Treatment [id number]#1.00 TIFF [facility] Discharge Instructionson Discharge Instructions [id number]#1.00 TIFF Normal [facility] IntraOperative Documentson 1 IntraOperative Documents [id number]#1.00 TIFF Normal [facility] Main OR Intraoperative Recor don 09-04-2023 Main OR Intraoperative Record IntraOp Document Type FTPM Summary Primary Physician: Bib Sanchez MD Finalized Date/Time: 09/04/23 10:36:25 Pt. Name: RIDGE ROLAND John /Sex: 1945 Male Med Rec #: [id number] Physician: Bib Sanchez MD Financial #: [id number] Pt. Type: P Room/Bed: / Admit/Disch: 09/04/23 [...] Savannah Lin Role Performed Surgeon - Primary Lending Activities Supervisor - Primary Scrub - Primary Time In 09/04/23 10:30:00 09/04/23 10:30:00 09/04/23 10:30:00 Time Out 09/04/23 10:37:00 09/04/23 10:37:00 09/04/23 10:37:00 Procedure MEDIAL BRANCH MEDIAL BRANCH MEDIAL BRANCH BLOCK(Bilateral) BLOCK(Bilateral) BLOCK(Bilateral) Comments Last Modified By: Robin JENNINGS, Tomasa Kelly RN, Tomasa Alexander RN 09/04/23 10:36:10 09/04/23 10:36:10 09/04/23 10:36:10 Entry 4 Case Attendee Scott Craig Role Performed Privacy Analyst Time In 09/04/23 10:30:00 Time Out 09/04/23 [...] and tissue Entry 1 Skin Integrity Intact, Flushing, Warm, and Skin Abnormality No Dry Outcomes [...] 10:31:36 Post-Car (more content not included)... Normal [facility] Main OR Preoperative Recordo n 09-04-2023 Main OR Preoperative Record Holding Area Document Type FTPM Summary Primary Physician: Bib Sanchez MD Finalized Date/Time: 09/04/23 10:17:31 Pt. Name: RIDGE ROLAND D.O.B./Sex: 1945 Male Med Rec #: [id number] Physician: Bib Sanchez MD Financial #: [id number] Pt. Type: P Room/Bed: / Admit/Disch: 09/04/23 [...] By: Sharee Dominguez RN 09/04/23 10:17 Normal [facility] Operative Reporton 3 Operative Report Patient: [...] EDT Respiratory Rate 16 br/min . Normal [facility] Comment on above: Result Comment: Elec tronically Signed By: Fabi WALTERS, Bib Jackson\.br\Date and Time Signed: 09/04/23 10:36 EDT Consent for Treatmenton 08-06 Consent for Treatment [id number]#1.00T IFF Normal [facility] Consultation Noteon 08-28-20 Consultation Note Patient: [...] day(s), # 30 tab(s), Refills(s) 6, Pharmacy: [facility]/pharmacy #[id number], 193, cm, 05/29/23 8:59:00 EDT, Height/Length Dosing, 108.9, kg, 03/19/23 8:54:00 EDT, Weight Dosing Viagra 50 mg Tab: See Instructions, 1-2 tab(s) po 1 hr before sexual acitivity. do not exceed 2 tabs in 24 hrs., # 15 tab(s), Refills(s) 3, Pharmacy: [facility]/pharmacy #[id number], 193, cm, 08/31/22 9:11:00 EDT, Height/Length [...] list: All Problems Anticoagulated / SNOMED CT 919643184 / Confirmed At risk for falls / SNOMED CT 466169146 / Possible BMI 31.0-31.9,adult / SNOMED CT 730116358 / Confirmed BPH with urinary obstruction / SNOMED CT 0145479996 / Confirmed Chronic prostatitis / SNOMED CT 06159627 / Confirmed Dysuria / SNOMED CT 00240610 / Confirmed ED (erectile dysfunction) / SNOMED CT 5309994931 / Confirmed Elevated PSA / SNOMED CT 9944307722 / Confirmed Gross hematuria / SNOMED CT 469257463 / Confirmed Hernia, inguinal, right / SNOMED CT 590578854 / Confirmed Hypercholesterolemia / SNOMED CT 80071969 / Confirmed Impotence / SNOMED CT 5481191462 / Confirmed Incomplete bladder emptying / SNOMED CT 034309303 / Confirmed Incontinence without sensory awareness / SNOMED CT 5586612105 / Confirmed Leaking of urine / SNOMED CT 5428761602 / Confirmed Nocturia / SNOMED CT 277777950 / Confirmed Post-void dribbling / SNOMED CT 043750126 / Confirmed Prostate cancer screening / SNOMED CT 025536070 / Confirmed Urge incontinence / SNOMED CT 425031233 / Confirmed Urinary frequency / SNOMED CT 989615850 / Confirmed Urinary incontinence / SNOMED CT 5751250509 / Confirmed Urinary retention / SNOMED CT 192393813 / Confirmed Weak urinary stream / SNOMED CT 807122132 / Confirmed Objective Vital Signs 08/28/2023 7:51 [...] to follow-up (more content not included)... Normal [facility] Comment on above: Result Comment: Elec tronically Signed By: Fabi WALTERS, Bib Chahal.br\Date and Time Signed: 08/28/23 08:26 EDT Insurance Correspondence Off iceon 08-28-2023 Insurance Correspondence Office [id number]#1.00T IFF Normal [facility] Office/Clinic Note-Physician on 08-28-2023 Office/Clinic Note-Physician [id number]#1.00 TIFF Normal [facility] Patient Correspondenceon Patient Correspondence [id number]#1.00 TIFF Normal [facility] Patient Correspondence [id number]#1.00 TIFF Normal [facility] Patient Correspondence [id number]#1.00 TIFF Normal [facility] Patient Correspondence [id number]#1.00 TIFF Normal [facility] Patient History Officeon Patient History Office [id number]#1.00 TIFF [facility] Consent for Procedure/Surger yon 08-07-2023 Consent for Procedure/Surgery [id number]#1.00 CD:127 [facility] Consent for Treatmenton 10-0 3-2023 Consent for Treatment [id number]#1.00 CD:127 Normal [facility] Discharge Instructionson Discharge Instructions [id number]#1.00 CD:127 Normal [facility] IntraOperative Documentson 1 IntraOperative Documents [id number]#1.00 CD:127 Normal [facility] Main OR Intraoperative Recor don 08-07-2023 Main OR Intraoperative Record IntraOp Document Type FTPM Summary Primary Physician: Bib Sanchez MD Finalized Date/Time: 08/07/23 13:22:25 Pt. Name: RIDGE ROLAND John [place]/Sex: 1945 Male Med Rec #: [id number] Physician: Bib Sanchez MD Financial #: [id number] Pt. Type: P Room/Bed: / Admit/Disch: 08/07/23 12:06:33 - Institution: Case Times FTPM Entry 1 Patient Times In Room 08/07/23 13:16:00 Out Room 08/07/23 13:23:00 Procedure Times Start 08/07/23 13:19:00 Stop 08/07/23 13:22:00 Anesthesia Times Last Modified By: Robin JENNINGS, Tomasa Davidson 08/07/23 13:22:17 Case Attendance FTPM Entry 1 Entry 2 Entry 3 Case Attendee Bib Sanchez MD, RN, Tomasa Garrett RN, [facility] Role Performed Surgeon - Primary Lending Activities Supervisor - Primary Scrub - Primary Time In 08/07/23 13:16:00 08/07/23 13:16:00 08/07/23 13:16:00 Time Out 08/07/23 13:23:00 08/07/23 13:23:00 08/07/23 13:23:00 Procedure MEDIAL BRANCH MEDIAL BRANCH MEDIAL BRANCH BLOCK(Bilateral) BLOCK(Bilateral) BLOCK(Bilateral) Comments Last Modified By: Robin JENNINGS, Tomasa Kelly RN, Tomasa Kelly RN, Tomasa Davidson 08/07/23 13:22:18 08/07/23 13:22:18 08/07/23 13:22:18 Entry 4 Case Attendee Donna Hall Role Performed Privacy Analyst Time In 08/07/23 13:16:00 Time Out 08/07/23 [...] and tissue Entry 1 Skin Integrity Intact, Flushing, Warm, and Skin Abnormality No Dry Outcomes [...] Text: The (more content not included)... Normal [facility] Main OR Preoperative Recordo n 08-07-2023 Main OR Preoperative Record Holding Area Document Type FTPM Summary Primary Physician: Bib Sanchez MD Finalized Date/Time: 08/07/23 12:40:14 Pt. Name: RIDGE ROLAND D.O.B./Sex: 1945 Male Med Rec #: [id number] Physician: Bib Sanchez MD Financial #: [id number] Pt. Type: P Room/Bed: / Admit/Disch: 08/07/23 [...] By: Sharee Dominguez RN 08/07/23 12:40 Normal [facility] Operative Reporton 3 Operative Report Patient: [...] 12:33 EDT Respiratory Rate 14 br/min . [facility] Comment on above: Result Comment: Elec tronically Signed By: Fabi WALTERS, Bib Jackson\.br\Date and Time Signed: 08/07/23 13:35 EDT Patient Correspondenceon Patient Correspondence [id number]#1.00 CD:127 Normal [facility] Insurance Correspondence Off iceon 07-11-2023 Insurance Correspondence Office [id number]#2.00 CD:127 [facility] Consent for Treatmenton 06-05 Consent for Treatment [id number]#1.00 CD:127 Normal [facility] Consultation Noteon 06-18-20 Consultation Note Patient: [...] day(s), # 30 tab(s), Refills(s) 6, Pharmacy: [facility]/pharmacy #[id number], 193, cm, 05/29/23 8:59:00 EDT, Height/Length Dosing, 108.9, kg, 03/19/23 8:54:00 EDT, Weight Dosing Viagra 50 mg Tab: See Instructions, 1-2 tab(s) po 1 hr before sexual acitivity. do not exceed 2 tabs in 24 hrs., # 15 tab(s), Refills(s) 3, Pharmacy: [facility]/pharmacy #[id number], 193, cm, 08/31/22 9:11:00 EDT, Height/Length [...] list: All Problems Anticoagulated / SNOMED CT 083606268 / Confirmed At risk for falls / SNOMED CT 941920634 / Possible BMI 31.0-31.9,adult / SNOMED CT 858962785 / Confirmed BPH with urinary obstruction / SNOMED CT 2225822859 / Confirmed Chronic prostatitis / SNOMED CT 83993903 / Confirmed Dysuria / SNOMED CT 31111277 / Confirmed ED (erectile dysfunction) / SNOMED CT 6640132066 / Confirmed Elevated PSA / SNOMED CT 8106727820 / Confirmed Gross hematuria / SNOMED CT 245839845 / Confirmed Hernia, inguinal, right / SNOMED CT 501426381 / Confirmed Hypercholesterolemia / SNOMED CT 15775413 / Confirmed Impotence / SNOMED CT 5872408101 / Confirmed Incomplete bladder emptying / SNOMED CT 353845035 / Confirmed Incontinence without sensory awareness / SNOMED CT 6004915720 / Confirmed Leaking of urine / SNOMED CT 0866352972 / Confirmed Nocturia / SNOMED CT 283570926 / Confirmed Post-void dribbling / SNOMED CT 391990122 / Confirmed Prostate cancer screening / SNOMED CT 269983699 / Confirmed Urge incontinence / SNOMED CT 218368918 / Confirmed Urinary frequency / SNOMED CT 773876159 / Confirmed Urinary incontinence / SNOMED CT 6678136924 / Confirmed Urinary retention / SNOMED CT 898000655 / Confirmed Weak urinary stream / SNOMED CT 975146570 / Confirmed Objective Vital Signs 06/18/2023 10:00 [...] options include (more content not included)... Normal [facility] Comment on above: Result Comment: Elec tronically Signed By: Fabi WALTERS, Bib Jackson\.amy\Date and Time Signed: 06/18/23 10:46 EDT Office/Clinic Note-Physician on 06-18-2023 Office/Clinic Note-Physician [id number]#1.00 CD:127 Normal [facility] Patient Correspondenceon Patient Correspondence [id number]#1.00 CD:127 Normal [facility] Patient Correspondence [id number]#1.00 CD:127 Normal [facility] Patient History Officeon Patient History Office [id number]#1.00 CD:127 Normal [facility] Consent for Procedure/Surger yon 05-29-2023 Consent for Procedure/Surgery [id number]#1.00 CD:127 Normal [facility] Consent for Treatmenton 05-06 Consent for Treatment [id number]#1.00C D:127 [facility] Discharge Instructionson Discharge Instructions [id number]#1.00 CD:127 [facility] IntraOperative Documentson 0 05-29-2023 IntraOperative Documents [id number]#1.00 CD:127 [facility] Main OR Intraoperative Recor don 05-29-2023 Main OR Intraoperative Record IntraOp Document Type FTPM Summary Primary Physician: Bib Sanchez MD Finalized Date/Time: 05/29/23 09:35:05 Pt. Name: RIDGE ROLANDO.B./Sex: 1945 Male Med Rec #: [id number] Physician: Bib Sanchez MD Financial #: [id number] Pt. Type: P Room/Bed: / Admit/Disch: 05/29/23 [...] Performed Surgeon - Primary Scrub - Primary Lending Activities Supervisor - Primary Time In 05/29/23 09:27:00 05/29/23 09:27:00 05/29/23 09:27:00 Time Out 05/29/23 09:34:00 05/29/23 09:34:00 05/29/23 09:34:00 Procedure CAUDAL EPIDURAL STEROID CAUDAL EPIDURAL STEROID CAUDAL EPIDURAL STEROID INJECTION(.) INJECTION(.) INJECTION(.) Comments Last Modified By: Sharee Dominguez RN 05/29/23 Sharee Dominguez RN 05/29/23 Sharee Dominguez RN 05/29/23 09:33:49 09:33:49 09:33:49 Entry 4 Case Attendee Soni MCNULTY(R)Adry Role Performed Privacy Analyst Time In 05/29/23 09:27:00 Time Out 05/29/23 [...] Outcomes Met? Yes Last Modified By: Sharee Domingeuz RN 05/29/23 08:52:53 Post-Care Text: The patient [...] and tissue Entry 1 Skin Integrity Intact, Flushing, Warm, and Skin Abnormality No Dry Outcomes [...] is fr (more content not included)... Normal [facility] Main OR Preoperative Recordo n 05-29-2023 Main OR Preoperative Record Holding Area Document Type FTPM Summary Primary Physician: Bib Sanchez MD Finalized Date/Time: 05/29/23 09:03:38 Pt. Name: RIDGE ROLAND D.O.B./Alex: 1945 Male Med Rec #: [id number] Physician: Bib Sanchez MD Financial #: [id number] Pt. Type: P Room/Bed: / Admit/Disch: 05/29/23 [...] By: Azra Alberto RN 05/29/23 09:03 Normal [facility] Operative Reporton 3 Operative Report Patient: [...] Arterial Pressure, Monitered 120 mmHg . Normal [facility] Comment on above: Result Comment: Elec tronically Signed By: Fabi WALTERS, Bib Jackson\.br\Date and Time Signed: 05/29/23 09:34 EDT PROF CHEM 8 (BAS METB)on Anion gap [Moles/Vol] 12.2 mmol/L Normal [facility] Comment on above: Performed By: #### B MP #### [facility] [address] [address] [address] Liban Whyte Calcium [Mass/Vol] 9.0 mg/dL Normal 8.5-10.1 [facility] Comment on above: Performed By: #### B MP #### [facility] [address] [address] [address] Liban Whyte Chloride [Moles/Vol] 103 mmol/L Normal 98-107 [facility] Comment on above: Performed By: #### B MP #### [facility] [address] [address] [address] Liban Whyte CO2 [Moles/Vol] 27.6 mmol/L Normal 21.0-32.0 [facility] Comment on above: Performed By: #### B MP #### [facility] [address] [address] [address] Liban Whyte Creatinine [Mass/Vol] 0.82 mg/dL Normal 0.70-1.30 [facility] Comment on above: Performed By: #### B MP #### [facility] [address] [place] [address] Dr. Liban Whyte EGFR-AF UGANDAN >60 Normal >=60 [facility] Comment on above: Performed By: #### B MP #### [facility] [address] [place] [address] Dr. Liban Whyte EGFR-NON AF UGANDAN >60 Normal >=60 [facility] Comment on above: Performed By: #### B MP #### [facility] [address] [place] [address] Dr. Liban Whyte Glucose [Mass/Vol] 116 mg/dL Critically high 74-106 [facility] Comment on above: Performed By: #### B MP #### [facility] [address] [address] [address] Liban Whyte Potassium [Moles/Vol] 3.8 mmol/L Normal 3.5-5.1 [facility] Comment on above: Performed By: #### B MP #### [facility] [address] [place] [address] Dr. Liban Whyte Sodium [Moles/Vol] 139 mmol/L Normal 136-145 [facility] Comment on above: Performed By: #### B MP #### [facility] [address] [place] [address] Dr. Liban Whyte Urea nitrogen [Mass/Vol] 18.0 mg/dL Normal 7.0-18.0 [facility] Comment on above: Performed By: #### B MP #### [facility] [address] [place] [address] Dr. Liban Whyte Urea nitrogen/Creatinine [Mass ratio] 22.0 mg/mg Normal [facility] Comment on above: Performed By: #### B MP #### [facility] [address] [place] [address] Dr. Liban Whyte CBC AUTO DIFFon 03-12-2023 BASO # 0.0 103/ul Normal 0.0-0.1 [facility] Comment on above: Performed By: #### C BC #### [facility] [address] [place] [address] Dr. Liban Whyte Basophils/100 WBC (Bld) 0.5 % Normal 0.2-2.0 [facility] Comment on above: Performed By: #### C BC #### [facility] [address] [place] [address] Dr. Liban Whyte EO # 0.1 103/ul Normal 0.0-0.7 [facility] Comment on above: Performed By: #### C BC #### [facility] [address] [place] [address] Dr. Liban Whyte Eosinophils/100 WBC (Bld) 1.1 % Normal 0.9-7.0 [facility] Comment on above: Performed By: #### C BC #### [facility] [address] [place] [address] Dr. Liban Whyte Erythrocyte distribution width (RBC) [Ratio] 13.5 % Normal 11.0-15.0 [facility] Comment on above: Performed By: #### C BC #### [facility] [address] [place] [address] Dr. Liban Whyte Hematocrit (Bld) [Volume fraction] 47.5 % Normal 42.0-54.0 [facility] Comment on above: Performed By: #### C BC #### [facility] [address] [place] [address] Dr. Liban Whyte Hemoglobin (Bld) [Mass/Vol] 16.2 g/dL Normal 14.0-18.0 [facility] Comment on above: Performed By: #### C BC #### [facility] [address] [place] [address] Dr. Liban Whyte IG # 0.04 10e3/ul Critically high 0.00-0.03 [facility] Comment on above: Performed By: #### C BC #### [facility] [address] [place] [address] Dr. Liban Whyte IG % 0.5 % Normal 0.0-0.5 [facility] Comment on above: Performed By: #### C BC #### [facility] [address] [place] [address] Dr. Liban Whyte LYMPH # 1.7 103/ul Normal 1.2-3.8 [facility] Comment on above: Performed By: #### C BC #### [facility] [address] [place] [address] Dr. Liban Whyte Lymphocytes/100 WBC (Bld) 22.9 % Normal 20.5-60.0 [facility] Comment on above: Performed By: #### C BC #### [facility] [address] [place] [address] Dr. Liban Whyte MANUAL DIFF REQ NO Normal [facility] Comment on above: Performed By: #### C BC #### [facility] [address] [place] [address] Dr. Liban Whyte MCH (RBC) [Entitic mass] 31.6 pg Normal 25.9-34.0 [facility] Comment on above: Performed By: #### C BC #### [facility] [address] [place] [address] Dr. Liban Whyte MCHC (RBC) [Mass/Vol] 34.1 g/dL Normal 29.9-35.2 [facility] Comment on above: Performed By: #### C BC #### [facility] [address] [place] [address] Dr. Liban Whyte MCV (RBC) [Entitic vol] 92.6 fL Normal 80.0-94.0 [facility] Comment on above: Performed By: #### C BC #### [facility] [address] [place] [address] Dr. Liban Whyte MONO # 0.7 103/ul Normal 0.3-0.8 [facility] Comment on above: Performed By: #### C BC #### [facility] [address] [place] [address] Dr. Liban Whyte Monocytes/100 WBC (Bld) 9.4 % Normal 1.7-12.0 [facility] Comment on above: Performed By: #### C BC #### [facility] [address] [place] [address] Dr. Liban Whyte NEUT # 4.8 103/ul Normal 1.4-6.5 [facility] Comment on above: Performed By: #### C BC #### [facility] [address] [place] [address] Dr. Liban Whyte Neutrophils/100 WBC (Bld) 65.6 % Normal 43.0-75.0 [facility] Comment on above: Performed By: #### C BC #### [facility] [address] [place] [address] Dr. Liban Whyte Platelet mean volume (Bld) [Entitic vol] 11.1 fL Normal 9.5-13.5 [facility] Comment on above: Performed By: #### C BC #### [facility] [address] [place] [address] Dr. Liban Whyte PLT 210 103/ul Normal 150-450 [facility] Comment on above: Performed By: #### C BC #### [facility] [address] [place] [address] Dr. Liban Whyte RBC 5.13 106/ul Normal 4.70-6.10 [facility] Comment on above: Performed By: #### C BC #### [facility] [address] [place] [address] Dr. Liban Whyte WBC 7.4 103/ul Normal 4.0-11.0 [facility] Comment on above: Performed By: #### C BC #### [facility] [address] [address] [address] Liban Whyte LIPID PROFILEon 03-12-2023 CHOL-HDL RATIO NORM SEE BELOW Normal [facility] Comment on above: Result Comment: 3.3 - 4.4 LOW RISK 4.4 - 7.1 AVERAGE RISK 7.1 - 11.0 MODERATE RISK >11.0 HIGH RISK Performed By: #### A ST, ALT, LIPID #### [facility] [address] [address] [address] Liban Whyte Cholesterol [Mass/Vol] 134 mg/dL Normal <=200 [facility] Comment on above: Performed By: #### A ST, ALT, LIPID #### [facility] [address] [address] [address] Liban Whyte Cholesterol in HDL [Mass/Vol] 62 mg/dL Critically high 40-60 [facility] Comment on above: Performed By: #### A ST, ALT, LIPID #### [facility] [address] [address] [address] Liban Whyte Cholesterol in LDL [Mass/Vol] 57.4 mg/dL Normal [facility] Comment on above: Performed By: #### A ST, ALT, LIPID #### [facility] [address] [address] [address] Liban Whyte Cholesterol.total/Ch olesterol in HDL [Mass ratio] 2.2 {ratio} Normal [facility] Comment on above: Performed By: #### A ST, ALT, LIPID #### [facility] [address] [address] [address] Liban Whyte HDL NORMAL > or = 60 mg/dl - LO W CARDIOVASCULAR RISK <40 mg/dl - HIGH CARDIOVASCULAR RISK Normal [facility] Comment on above: Performed By: #### A ST, ALT, LIPID #### [facility] [address] [address] [address] Liban Whyte LDL CALC NORMAL SEE BELOW Normal [facility] Comment on above: Result Comment: <100 mg/dl OPTIMAL 100 - 129 mg/dl NEAR OR ABOVE OPTIMAL 130 - 159 mg/dl BORDERLINE HIGH 160 - 189 mg/dl HIGH >190 mg/dl VERY HIGH Performed By: #### A ST, ALT, LIPID #### [facility] [address] [place] [address] Dr. Liban Whyte Triglyceride [Mass/Vol] 73 mg/dL Normal <=150 [facility] Comment on above: Performed By: #### A ST, ALT, LIPID #### [facility] [address] [place] [address] Dr. Liban Whyte VLDL CALC 14.6 mg/dL Normal [facility] Comment on above: Performed By: #### A ST, ALT, LIPID #### [facility] [address] [place] [address] Dr. Liban Whyte SGOTon 03-12-2023 AST [Catalytic activity/Vol] 56 U/L Critically high 15-37 [facility] Comment on above: Performed By: #### A ST, ALT, LIPID #### [facility] [address] [place] [address] Dr. Liban Whyte [facility] 03-12-2023 ALT [Catalytic activity/Vol] 29 U/L Normal 16-63 [facility] Comment on above: Performed By: #### A ST, ALT, LIPID #### [facility] [address] [place] [address] Dr. Liban Whyte Office Visit (Cardiology)on 03-08-2023 [...] Aminotransferase, Serum; Status:Active - Retrospective Authorization; Requested for:[id number]; AST; Status:Active - Retrospective Authorization; Requested for:08Mar2023; [...] negative for complaint. Vitals Vital Signs Recorded: [id number] 09:32AM Heart Rate68, L Radial Zyrgvdye904, LUE, Sitting Ghyazzruu19, LUE, Sitting Height6 ft 4 in Ryawry415 lb BMI Jmmiajisxt16.21 kg/m2 BSA Calculated2.39 Tobacco Useb) No PHQ-2 [...] no thyromegaly (more content not included)... Normal [employer] Tobacco Screening.on 023 Adult depression screening assessment No [facility] [facility] 250 DO Work Phone: Fall risk assessment a) No falls within the last year [facility] [facility] 250 DO Work Phone: Tobacco use status [facility] b) No [facility] [facility] 250 DO Work Phone: CREATININEon 11-14-2022 Creatinine [Mass/Vol] 1.10 mg/dL Normal 0.70-1.30 [facility] Comment on above: Performed By: #### C AIME #### [facility] [address] [address] [address] Liban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 Respiratory rate 16 /min Stephenie Barrios [facility] 09-14-2023 07:47-0500 Systolic blood pressure 124 mm[Hg] Stephenie Barrios [facility] 08-07-2023 13:25-0400 Heart rate 61 /min Bib Fabi [facility] 08-07-2023 13:25-0400 SaO2% (BldA) [Mass fraction] 97 % Bib Fabi [facility] 08-07-2023 13:25-0400 Diastolic blood pressure 90 mm[Hg] Bib Fabi [facility] 08-07-2023 13:25-0400 Mean blood pressure 119 mm[Hg] Bib Fabi [facility] 08-07-2023 13:25-0400 Systolic blood pressure 176 mm[Hg] Bib Fabi [facility] 08-07-2023 13:19-0400 Diastolic blood pressure 83 mm[Hg] Bib Fabi [facility] 08-07-2023 13:19-0400 Heart rate 65 /min Bib Fabi [facility] 08-07-2023 13:19-0400 SaO2% (BldA) [Mass fraction] 95 % Bib Fabi [facility] 08-07-2023 13:19-0400 Systolic blood pressure 153 mm[Hg] Bib Fabi [facility] 08-07-2023 12:34-0400 Heart rate 62 /min Bib Fabi [facility] 08-07-2023 12:34-0400 SaO2% (BldA) [Mass fraction] 95 % Bib Fabi [facility] 08-07-2023 12:34-0400 Body temperature 97.7 [degF] Bib Fabi [facility] 08-07-2023 12:34-0400 Diastolic blood pressure 73 mm[Hg] Bib Fabi [facility] 08-07-2023 12:34-0400 Mean blood pressure 101 mm[Hg] Bib Fabi [facility] 08-07-2023 12:34-0400 Systolic blood pressure 157 mm[Hg] Bibrubi Sorensonner [facility] 08-07-2023 12:33-0400 Respiratory rate 14 /min Bibrubi Sanchez [facility] 05-11-2023 09:40-0400 Diastolic blood pressure 77 mm[Hg] Stephenie Barrios [facility] 05-11-2023 09:40-0400 Heart rate 68 /min Stepheniejakob Barrios [facility] 05-11-2023 09:40-0400 Mean blood pressure 95 mm[Hg] Stepheniejakob Barrios [facility] 05-11-2023 09:40-0400 Respiratory rate 14 /min Stephenie Barrios [facility] 05-11-2023 09:40-0400 Systolic blood pressure 130 mm[Hg] Stepheniejakob Barrios [facility] 05-01-2023 14:39-0400 Heart rate 61 /min Bib Sanchez [facility] 05-01-2023 14:39-0400 SaO2% (BldA) [Mass fraction] 96 % Bib Fabi [facility] 05-01-2023 14:39-0400 Diastolic blood pressure 80 mm[Hg] Bib Fabi [facility] 05-01-2023 14:39-0400 Mean blood pressure 107 mm[Hg] Bib Fabi [facility] 05-01-2023 14:39-0400 Systolic blood pressure 160 mm[Hg] Bib Fabi [facility] 05-01-2023 14:39-0400 Respiratory rate 14 /min Bib Fabi [facility] 05-01-2023 14:34-0400 Diastolic blood pressure 75 mm[Hg] Bib Fabi [facility] 05-01-2023 14:34-0400 Heart rate 63 /min Bib Fabi [facility] 05-01-2023 14:34-0400 Respiratory rate 14 /min Bib Fabi [facility] 05-01-2023 14:34-0400 SaO2% (BldA) [Mass fraction] 98 % Bib Fabi [facility] 05-01-2023 14:34-0400 Systolic blood pressure 149 mm[Hg] Bib Fabi [facility] 05-01-2023 14:04-0400 Heart rate 60 /min Bib Fabi [facility] 05-01-2023 14:04-0400 SaO2% (BldA) [Mass fraction] 94 % Bib Fabi [facility] 05-01-2023 14:04-0400 Diastolic blood pressure 78 mm[Hg] Bib Fabi [facility] 05-01-2023 14:04-0400 Mean blood pressure 103 mm[Hg] Bib Fabi [facility] 05-01-2023 14:04-0400 Systolic blood pressure 152 mm[Hg] Bib Fabi [facility] 05-01-2023 14:04-0400 Body temperature 97.34 [degF] Bib Sanchez [facility] 05-01-2023 14:04-0400 Respiratory rate 14 /min Bib Sanchez [facility] 04-30-2023 09:00-0400 Body height 193.04 cm Devang Ball Other [facility] [employer] Other 04-30-2023 09:00-0400 Body mass index (BMI) [Ratio] 28.36 kg/m2 Devang Ball Other [facility] [employer] Other 04-30-2023 09:00-0400 Body weight 105.69 kg Devang Ball Other [employer] Other 04-30-2023 09:00-0400 Diastolic blood pressure 83 mm[Hg] Devang Ball Other [employer] Other 04-30-2023 09:00-0400 Respiratory rate 12 /min Devang Ball Other [employer] Other 04-30-2023 09:00-0400 Systolic blood pressure 135 mm[Hg] Devang Ball Other [facility] [employer] Other 03-19-2023 08:45-0400 Diastolic blood pressure 89 mm[Hg] Stephenie Barrios [facility] 03-19-2023 08:45-0400 Heart rate 67 /min Stephenie Barrios [facility] 03-19-2023 08:45-0400 Mean blood pressure 106 mm[Hg] Stephenie Barrios [facility] 03-19-2023 08:45-0400 Respiratory rate 20 /min Stephenie Barrios [facility] 03-19-2023 08:45-0400 Systolic blood pressure 140 mm[Hg] Stephenie Barrios [facility] 03-12-2023 09:15-0400 Heart rate 65 /min Bib Fabi [facility] 03-12-2023 09:15-0400 SaO2% (BldA) [Mass fraction] 96 % Bib Fabi [facility] 03-12-2023 09:15-0400 Diastolic blood pressure 92 mm[Hg] Bib Fabi [facility] 03-12-2023 09:15-0400 Mean blood pressure 114 mm[Hg] Bib Fabi [facility] 03-12-2023 09:15-0400 Systolic blood pressure 159 mm[Hg] Bib Fabi [facility] 03-12-2023 09:15-0400 Respiratory rate 16 /min Bib Fabi [facility] 03-12-2023 09:11-0400 Diastolic blood pressure 67 mm[Hg] Bib Fabi [facility] 03-12-2023 09:11-0400 Heart rate 70 /min Bib Fabi [facility] 03-12-2023 09:11-0400 Respiratory rate 14 /min Bib Fabi [facility] 03-12-2023 09:11-0400 SaO2% (BldA) [Mass fraction] 94 % Bib Fabi [facility] 03-12-2023 09:11-0400 Systolic blood pressure 160 mm[Hg] Bib Fabi [facility] 03-12-2023 08:09-0400 Heart rate 71 /min Bib Sanchez [facility] 03-12-2023 08:09-0400 SaO2% (BldA) [Mass fraction] 95 % Bib Sanchez [facility] 03-12-2023 08:09-0400 Diastolic blood pressure 69 mm[Hg] Bib Sanchez [facility] 03-12-2023 08:09-0400 Mean blood pressure 102 mm[Hg] Bib Sanchez [facility] 03-12-2023 08:09-0400 Systolic blood pressure 168 mm[Hg] Bib Sanchez [facility] 03-12-2023 08:09-0400 Body temperature 97.52 [degF] Bib Sanchez [facility] 03-12-2023 08:09-0400 Respiratory rate 12 /min Bib Sanchez [facility] 03-08-2023 09:32-0400 Body height 193.04 cm Devang Bustillo Ball Work Phone: [facility] [employer] DO Work Phone: 03-08-2023 09:32-0400 Body mass index (BMI) [Ratio] 29.21 kg/m2 Devang Bustillo Ball Work Phone: [facility] [employer] DO Work Phone: 03-08-2023 09:32-0400 Body surface area Derived from formula 2.39 m2 Devang Bustillo Ball Work Phone: [facility] [employer] DO Work Phone: 03-08-2023 09:32-0400 Body weight 108.86 kg Devang Bustillo Ball Work Phone: [facility] [employer] DO Work Phone: 03-08-2023 09:32-0400 Diastolic blood pressure 84 mm[Hg] Devang Iwona Ball Work Phone: [facility] [employer] DO Work Phone: 03-08-2023 09:32-0400 Heart rate 68 /min Devang Bustillo Ball Work Phone: [facility] [employer] DO Work Phone: 03-08-2023 09:32-0400 Systolic blood pressure 132 mm[Hg] Devang E Ball Work Phone: [facility] [employer] DO Work Phone: 02-21-2023 14:00-0400 Body height 193.04 cm Allison Blades Other [employer] Other 02-21-2023 14:00-0400 Body mass index (BMI) [Ratio] 30.43 kg/m2 Allison Blades Other [employer] Other 02-21-2023 14:00-0400 Body weight 113.4 kg Allison Blades Other [employer] Other 02-21-2023 14:00-0400 Diastolic blood pressure 66 mm[Hg] Allison Blades Other [employer] Other 02-21-2023 14:00-0400 Systolic blood pressure 110 mm[Hg] Allison Blades Other [employer] Other 01-01-2023 10:00-0500 Body height 190.5 cm LUDWIN LEMON Other [facility] Other 01-01-2023 10:00-0500 Body mass index (BMI) [Ratio] 30.62 kg/m2 LUDWIN VÁSQUEZCETIC Other [facility] [employer] Other 01-01-2023 10:00-0500 Body weight 111.13 kg LUDWIN VUCETIC Other [facility] [employer] Other 01-01-2023 10:00-0500 Diastolic blood pressure 66 mm[Hg] LUDWIN VUCETIC Other [facility] Other 01-01-2023 10:00-0500 Respiratory rate 16 /min LUDWIN VÁSQUEZCETIC Other [facility] [employer] Other 01-01-2023 10:00-0500 Systolic blood pressure 118 mm[Hg] LUDWIN VÁSQUEZCETIC Other [facility] Other 11-29-2022 10:30-0500 Body height 193.04 cm Allison Blades Other [employer] Other 11-29-2022 10:30-0500 Body mass index (BMI) [Ratio] 29.84 kg/m2 Allison Blades Other [employer] Other 11-29-2022 10:30-0500 Body weight 111.22 kg Allison Blades Other [employer] Other 11-29-2022 10:30-0500 Diastolic blood pressure 84 mm[Hg] Allison Blades Other [employer] Other 11-29-2022 10:30-0500 Systolic blood pressure 138 mm[Hg] Allison Blades Other [facility] [employer] Other 11-28-2022 09:00-0500 Blood Pressure Location ALANIS WOOD [facility] 11-28-2022 09:00-0500 Diastolic blood pressure 84 mm[Hg] ALANIS NINA [facility] 11-28-2022 09:00-0500 Heart rate 68 /min ALANIS WOOD [facility] 11-28-2022 09:00-0500 Respiratory rate 16 /min ALANISCOREY WOOD [facility] 11-28-2022 09:00-0500 Systolic blood pressure 121 mm[Hg] ALANIS WOOD [facility] 09-26-2022 09:33-0500 Body height 193.04 cm Devang Bustillo Ball Work Phone: BR-Btthmevpsm-Cqdvzv [place] 250 DO Work Phone: 09-26-2022 09:33-0500 Body mass index (BMI) [Ratio] 29.7 kg/m2 Devang Bustillo Ball Work Phone: YD-Xlqianflbs-Mmzxfl [place] 250 DO Work Phone: 09-26-2022 09:33-0500 Body surface area Derived from formula 2.41 m2 Devang Bustillo Ball Work Phone: PL-Bxhpqzcofv-Kpobrp [place] 250 DO Work Phone: 09-26-2022 09:33-0500 Body weight 110.68 kg Devang Bustillo Ball Work Phone: OE-Osqtesumpm-Ydvpbg [place] 250 DO Work Phone: 09-26-2022 09:33-0500 Diastolic blood pressure 78 mm[Hg] Devang E Ball Work Phone: JR-Rdlnhfenbf-Qkvsji [place] 250 DO Work Phone: 09-26-2022 09:33-0500 Heart rate 76 /min Devang E Ball Work Phone: EF-Jnndjmjsqb-Wkdpqq [place] 250 DO Work Phone: 09-26-2022 09:33-0500 Systolic blood pressure 120 mm[Hg] Devang E Ball Work Phone: OT-Etkekpfeen-Ejbyan [place] 250 DO Work Phone: 03-28-2022 13:43-0400 Body height 193.04 cm Devang E Ball Work Phone: [facility] 250 DO Work Phone: 03-28-2022 13:43-0400 Body mass index (BMI) [Ratio] 28.48 kg/m2 Devang E Ball Work Phone: [facility] 250 DO Work Phone: 03-28-2022 13:43-0400 Body surface area Derived from formula 2.37 m2 Devang E Ball Work Phone: [facility] 250 DO Work Phone: 03-28-2022 13:43-0400 Body weight 106.14 kg Devang E Ball Work Phone: [facility] 250 DO Work Phone: 03-28-2022 13:43-0400 Diastolic blood pressure 60 mm[Hg] Devang E Ball Work Phone: [facility] 250 DO Work Phone: 03-28-2022 13:43-0400 Heart rate 88 /min Devang E Ball Work Phone: [facility] 250 DO Work Phone: 03-28-2022 13:43-0400 Systolic blood pressure 100 mm[Hg] Devagn E Ball Work Phone: [facility] 250 DO Work Phone: Encounters Encounter Date Encounter Type Care Provider Facility Start: 06-12-2024 ambulatory ALANIS Venegas ty:AYO Sandy Start: 05-22-2024 End: 05-22-2024 ambulatory PARRA [facility] Start: 05-07-2024 End: 05-07-2024 ambulatory [facility] Work Phone: Start: 05-07-2024 End: 05-07-2024 [facility] Work Phone: Start: 05-02-2024 End: 05-02-2024 ambulatory Stephenie Barrios Facility:[facility] Start: 05-02-2024 End: 05-02-2024 Pain Management Stephenie Barrios [facility] Start: 04-29-2024 Non-patient / Non-visit [facility] Work Phone: Start: 04-28-2024 End: 04-28-2024 ambulatory [facility] Work Phone: Start: 04-28-2024 End: 04-28-2024 Patient encounter procedure [facility] Work Phone: Start: 03-14-2024 End: 03-14-2024 ambulatory Stephenie Barrios Facility:[facility] Start: 03-14-2024 End: 03-14-2024 Pain Management Stephenie Barrios [facility] Start: 02-25-2024 End: 02-26-2024 ambulatory ANDREW CRUZ Not Available Start: 01-25-2024 End: 01-25-2024 ambulatory Stephenie Barrios Facility:[facility] Start: 01-25-2024 End: 01-25-2024 Pain Management Stephenie Barrios [facility] Start: 01-18-2024 End: 01-18-2024 ambulatory [facility] Work Phone: Start: 01-18-2024 End: 01-18-2024 [facility] Work Phone: Start: 01-09-2024 End: 01-09-2024 ambulatory Bert Huang Facility:[facility] Start: 01-09-2024 End: 01-09-2024 Pain Management Bert Huang [facility] Start: 12-31-2023 End: 12-31-2023 ambulatory [facility] Work Phone: Start: 12-31-2023 End: 12-31-2023 [facility] Work Phone: Start: 12-24-2023 Non-patient / Non-visit [facility] [employer] Work Phone: Start: 12-14-2023 End: 12-14-2023 ambulatory Homero XAVIER Facility:[facility] Start: 12-14-2023 End: 12-14-2023 Patient encounter procedure Homero XAVIER [facility] Start: 12-11-2023 End: 12-11-2023 ambulatory ALANIS WOOD Facility:[facility] Start: 12-10-2023 End: 12-10-2023 ambulatory Stephenie Barrios Facility:[facility] Start: 12-10-2023 End: 12-10-2023 Pain Management Stephenie Barrios [facility] Start: 11-28-2023 End: 11-28-2023 ambulatory Devang Hall Other [employer] Other Start: 11-28-2023 Telephone encounter Devang Hall [facility] Start: 11-14-2023 End: 11-14-2023 Office outpatient visit 25 minutes Marisol Connors MD Work Phone: [facility] Comment on above: Arteriosclerosis of coronary artery (Primary Dx); Status post coronary angioplasty; Dyslipidemia; Essential hypertension; Obesity (BMI 30.0-34.9); At risk for falls Start: 11-14-2023 End: 11-14-2023 ambulatory MARISOL Gao [facility] Start: 11-09-2023 End: 11-09-2023 ambulatory Stephenie Barrios Facility:[facility] Start: 11-09-2023 End: 11-09-2023 Pain Management Stephenie Barrios [facility] Start: 10-23-2023 End: 10-23-2023 ambulatory Devang Hall Other [facility] [employer] Other Start: 10-23-2023 Office outpatient vi sit 25 minutes Devang Hall [facility] Start: 10-23-2023 End: 10-23-2023 Patient encounter procedure [facility] Work Phone: Start: 10-08-2023 End: 10-08-2023 ambulatory MD Bib Sanchez Facility:[facility] Start: 10-08-2023 End: 10-08-2023 Pain Management Bib Sanchez [facility] Start: 09-14-2023 End: 09-14-2023 ambulatory Stephenie Barrios Facility:[facility] Start: 09-14-2023 End: 09-14-2023 Pain Management Stephenie Barrios [facility] Start: 09-04-2023 End: 09-04-2023 ambulatory MD Bib Sanchez Facility:[facility] Start: 08-28-2023 End: 08-28-2023 ambulatory DEVANG HALL Facility:[facility] Start: 08-07-2023 End: 08-07-2023 ambulatory MD Bib Sanchez Facility:[facility] Start: 08-07-2023 End: 08-07-2023 Pain Management Bib Sanchez [facility] Start: 06-18-2023 End: 06-18-2023 ambulatory DEVANG HALL Facility:[facility] Start: 05-29-2023 End: 05-29-2023 ambulatory DEVANG HALL Facility:[facility] Start: 05-11-2023 End: 05-11-2023 Pain Management Stephenie Barrios [facility] Start: 05-03-2023 End: 05-03-2023 ambulatory Devang Hall Other [employer] Other Start: 05-03-2023 Telephone encounter Devang Hall [facility] Start: 05-01-2023 End: 05-01-2023 ambulatory Devang Hall Other [employer] Other Start: 05-01-2023 Telephone encounter Devang Hall [facility] Start: 05-01-2023 End: 05-01-2023 Pain Management Bib Sanchez [facility] Start: 04-30-2023 End: 04-30-2023 ambulatory Devang Hall Other [employer] Other Start: 04-30-2023 Patient encounter procedure Devang Hall [facility] Start: 03-19-2023 End: 03-19-2023 Pain Management Stephenie Barrios [facility] Start: 03-14-2023 End: 03-15-[address] MARISOL CONNORS Facility: Start: 03-12-2023 End: 03-13-[address] MARISOL CONNORS Facility:[facility] Start: 03-12-2023 End: 03-12-2023 Pain Management Bib Sanchez [facility] Start: 03-08-2023 FUV, Provider: Marisol Connors, Status: Pen, Time: 9:50 AM Devang Iwona Hall Work Phone: [facility] 250 DO Work Phone: Start: 03-08-2023 Office outpatient vi sit 25 minutes Devang E Ball Work Phone: [facility] 250 DO Work Phone: Start: 03-08-2023 ambulatory Marisol Connors Facility :[id number] Start: 03-06-2023 Rx Renewal Devang Bustillo Bal l Work Phone: [facility] 250 DO Work Phone: Start: 02-21-2023 End: 02-21-2023 ambulatory Allison Blades Other [employer] Other Start: 02-21-2023 Office outpatient vi sit 15 minutes Allison Blades [facility] Start: 01-10-2023 End: 03-02-[address] DOCTOR PLUMMER Facility:[facility] Start: 01-01-2023 End: 01-01-2023 ambulatory LUDWIN LEMON Other [facility]. Other Start: 01-01-2023 Office outpatient ne w 45 minutes LUDWIN LEMON [facility] Start: 11-29-2022 End: 11-29-2022 ambulatory Allison Blades Other [facility] [employer] Other Start: 11-29-2022 Office outpatient ne w 45 minutes Allison Blades [facility] Start: 11-29-2022 Telephone encounter Allison Blades F [facility] [employer] Start: 11-28-2022 End: 11-28-2022 Patient encounter procedure ALANIS WOOD [facility] Start: 11-15-2022 End: 11-15-2022 ambulatory Devang Hall Other [facility] [employer] Other Start: 11-15-2022 Telephone encounter Devang Hall [facility] Start: 11-14-2022 End: 11-15-[address] DEVANG HALL Facility: Start: 10-11-2022 Rx Renewal Devang Gonzalez l Work Phone: [facility] 250 DO Work Phone: Start: 09-26-2022 Office outpatient vi sit 25 minutes Devang Hall Work Phone: [facility]Mhnvfdmq 250 DO Work Phone: Start: 09-26-2022 ambulatory Marisol Connors Facility :[id number] Start: 05-30-2022 End: 05-30-2022 Patient encounter procedure Goldy Alberto Jr. [facility] Start: 05-11-2022 End: 05-11-2022 Patient encounter procedure Goldy Alberto Jr. [facility] Start: 05-09-2022 End: 05-09-2022 Patient encounter procedure Goldy Alberto Jr. [facility] Start: 04-25-2022 End: 04-25-2022 Emergency department patient visit Dr. Devang Hall Facility:[facility] Start: 04-07-2022 End: 04-08-[address] MARISOL CONNORS Facility: Start: 03-28-2022 Office outpatient vi sit 25 minutes Devang Hall Work Phone: [facility] 250 DO Work Phone: Start: 03-28-2022 ambulatory Marisol Connors Facility : Start: 03-06-2022 Rx Renewal Marisol Connors MD Work Phone: [facility] 250 DO Work Phone: Start: 09-26-2021 Rx Renewal Marisol Connors MD Work Phone: [facility] 250 DO Work Phone: Start: 09-22-2021 Rx Renewal Marisol Connors MD Work Phone: [facility] 250 DO Work Phone: Start: 04-11-2018 End: 04-13-2018 Evaluation and management of inpatient DEVANG Bustillo RAFAEL [facility] Start: 04-10-2018 Ambulatory [facility] Start: 04-10-2018 End: 04-15-2018 Ambulatory [facility] Procedures Date Procedure Procedure Detail Performing Clinician Start: 01-09-2024 Injection of sacroil iac joint using fluoroscopic guidance [employer] Comment on above: 90% relief for 4 hrs Start: 10-08-2023 Radiofrequency ablat ion of nerve root of lumbar spine using fluoroscopic guidance [employer] Comment on above: Bilateral L3/4+L4/5- no relief Start: 09-04-2023 Injection of facet j oint using fluoroscopic guidance [employer] Comment on above: Bilateral L3/4, L4/5 MBB-80% relief for 1 day Start: 08-07-2023 Injection of facet j oint using fluoroscopic guidance [employer] Comment on above: BL L3/L4 L4/L5 MBB 8 5% Relief x 4 hours Start: 05-29-2023 Local anesthetic sac ral epidural block Bib Sanchez Comment on above: Caudal john 50% relie f Start: 05-01-2023 Injection of facet j oint using fluoroscopic guidance [employer] Comment on above: bilateral 75% relief for 2 hours Start: 03-12-2023 Injection of facet j oint using fluoroscopic guidance [employer] Comment on above: pt changed amt of re lief to 80% x 4 hr. bilat L3/4 MBB- 50% relief x 4 hr Start: 05-11-2022 Injection of therape utic substance into bladder wall ALANIS NINA Start: 02-07-2021 Blepharoplasty Goldy Sarah Beth shelley Jr. Start: 12-02-2020 Cystourethroscopy wi th dilation of urethral stricture Goldy Alberto Jr. Start: 11-02-2020 Cataract extraction and insertion of intraocular lens Goldyjorje Alberto Jr. Start: 04-28-2020 Transurethral prostatectomy Goldy Alberto Jr. Start: 12-08-2019 Cystourethroscopy wi th dilation of urethral stricture Goldyjorje Alberto Jr. Start: 10-16-2019 back surgery 1 Goldy shelley Comment on above: 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 3 Start: 10-16-2019 back surgery 3 Stephenie S ollie Comment on above: 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 3 Start: 10-16-2019 back surgery 4 Stephenie S ollie Comment on above: 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 3 Start: 10-16-2019 back surgery 5 Bib patel Comment on above: 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 3 Start: 10-16-2019 back surgery 7 Stephenie levin Comment on above: 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 3 Start: 10-16-2019 back surgery 8 Stephenie levin Comment on above: 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 3 Start: 10-16-2019 back surgery 9 Stephenie levin Comment on above: 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 3 Start: 06-16-2019 Placement of stent i n cardiac conduit Goldy Alberto Start: 11-05-2018 History of placement of stent [...] ANNMARIE SMITA Start: 04-13-2018 INTAKE AND OUTPUT ANNMRAIE YO O Start: 04-13-2018 END TIDAL CO2 [...] Cassandra Alberto Jr. Arthroplasty of knee Sinan gray Bustillo Rafael Work Phone: Arthroscopy of knee Marisol burton MD Work Phone: Arthroscopy of knee Goldy shelley Jr. Back structure, excl uding neck (body structure) Goldy Alberto Jr. Cardiac catheterization Ronny Connors MD Work Phone: Cataract surgery Devang Bustillo Rafael Work Phone: Extraction of cataract Memo Alberto Jr. Hernia repair Marisol Connors MD Work Phone: History of placement of stent for coronary artery disease H/O heart artery stent Procedure on back Marisol de la paz MD Work Phone: Release of trigger finger Do abdullahi Alberto Jr. Tonsillectomy Marisol Connors MD Work Phone: Plan of Treatment Date Care Activity Detail Author Start: 11-08-2030 DTaP/Tdap/Td Vaccine s (2 - Tdap) DTaP/Tdap/Td Vaccines (2 - Tdap) [facility] Start: 05-22-2024 End: 05-22-2024 Patient encounter procedure 05/22/2024 9:50 AM EDT Office Visit [facility] [address] [id number] Marisol Connors MD [address] [facility] [address], [address] [address] [facility] Start: 09-18-2023 FUV, Provider: Marisol Connors, Status: Pen, Time: 9:50 AM FUV, Provider: Marisol Connors, Status: Pen, Time: 9:50 AM [facility] 250 DO Work Phone: Start: 03-08-2023 FUV, Provider: Marisol Connors, Status: Pen, Time: 9:50 AM FUV, Provider: Marisol Connors, Status: Pen, Time: 9:50 AM DS-Maucyitjvm-Jfvsyelb 250 DO Work Phone: Start: 10-22-2022 COVID-19 Vaccine (4 - Pfizer series) COVID-19 Vaccine (4 - Pfizer series) [facility] Start: 09-26-2022 FUV, Provider: Marisol Connors, Status: Pen, Time: 9:40 AM FUV, Provider: Marisol Connors, Status: Pen, Time: 9:40 AM [facility] 250 DO Work Phone: Start: 03-28-2022 FUV, Provider: Marisol Connors, Status: Pen, Time: 1:20 PM FUV, Provider: Marisol Connors, Status: Pen, Time: 1:20 PM -[facility] 250 DO Work Phone: Start: 12-15-2021 FUV, Provider: Marisol Connors, Status: Pen, Time: 10:30 AM FUV, Provider: Marisol Connors, Status: Pen, Time: 10:30 AM [facility] 250 DO Work Phone: Start: 1996 Zoster Vaccines (1 of 2) Zoste r Vaccines (1 of 2) [facility] Start: 1963 Hepatitis C screening Hepatitis C Sc reening [facility] Start: 1945 Lipid panel Lipid Panel [facility] Start: 1945 Medicare Annual Well ness Visit Medicare Annual Wellness Visit (AWV) [facility] Comprehensive metabo lic 2000 panel - Serum or Plasma [facility] Immunizations Immunization Date Immunization Notes Care Provider Fa cility 08-20-2023 influenza virus vaccine, unspecified formulation Homero XAVIER [facility] 08-27-2022 Pfizer COVID-19 Vac Bivalent 30 MCG/0.3ML Intramuscular Suspension Devang Hall Work Phone: [facility] 08-14-2022 Fluzone High-Dose Quadrivalent 0.7 ML Intramuscular Suspension Prefilled Syringe Devang Hall Work Phone: [facility] 250 DO Work Phone: 08-14-2022 influenza virus vaccine, unspecified formulation ALANIS WOOD [facility] 08-14-2022 influenza, high dose seasonal, preservative-free Devang Hall Other [facility] [employer] Other 10-03-2021 Pfizer-BioNTech COVID-19 Vacc 30 MCG/0.3ML Intramuscular Suspension Devang Hall Work Phone: [facility] 10-03-2021 SARS-CoV-2 (COVID-19 ) Ad26 vaccine, recombinant Golyd Alberto Jr. [facility] 07-01-2021 Fluzone High-Dose Quadrivalent 0.7 ML Intramuscular Suspension Prefilled Syringe Devang Hall Work Phone: [facility] 250 DO Work Phone: 07-01-2021 influenza virus vaccine, unspecified formulation ALANIS WOOD [facility] 06-05-2021 influenza virus vaccine, unspecified formulation Goldy Alberto Jr. [facility] 01-25-2021 Pfizer-BioNTech COVID-19 Vacc 30 MCG/0.3ML Intramuscular Suspension Marisol Connors MD Work Phone: [facility] 01-25-2021 SARS-CoV-2 (COVID-19 ) Ad26 vaccine, recombinant Goldy Alberto . [facility] 01-03-2021 COVID-19 Vaccine Pfi zer - Documentation Purposes Only Devang Hall Other [facility] 01-03-2021 SARS-CoV-2 (COVID-19 ) mRNA-1273 vaccine Goldy Alberto Jr. [facility] 12-28-2020 Pfizer-BioNTech COVID-19 Vacc 30 MCG/0.3ML Intramuscular Suspension Devang Hall Work Phone: [facility] 11-08-2020 diphtheria, tetanus toxoids and pertussis vaccine Devang Hall Work Phone: [place] [address] DO Work Phone: 07-06-2020 influenza virus vaccine, unspecified formulation Marisol Connors MD Work Phone: [facility] 07-02-2020 influenza virus vaccine, unspecified formulation ALANIS WOOD [facility] 08-19-2018 influenza virus vaccine, unspecified formulation ALANIS WOOD [facility] 08-19-2018 Seasonal trivalent influenza vaccine, adjuvanted, preservative free Devang Hall Work Phone: [place] [address] DO Work Phone: 07-06-2018 influenza virus vaccine, unspecified formulation Marisol Connors MD Work Phone: [place] [address] DO Work Phone: 08-24-2017 pneumococcal conjuga te vaccine, 13 valent Devang Hall Work Phone: [facility] 08-17-2017 influenza virus vaccine, unspecified formulation ALANIS WOOD [facility] 08-17-2017 influenza, high dose seasonal, preservative-free Devang Hall Work Phone: [place] [address] DO Work Phone: 11-05-2016 pneumococcal polysaccharide vaccine, 23 valent Marisol Connors MD Work Phone: [place] [address] DO Work Phone: 08-11-2016 influenza virus vaccine, unspecified formulation ALANIS WOOD [facility] 08-05-2016 influenza virus vaccine, unspecified formulation ALANIS WOOD [facility] 08-05-2016 influenza, injectabl e, quadrivalent, preservative free Devang Bustillo Rafael Work Phone: [place] [address] DO Work Phone: 07-06-2014 pneumococcal polysaccharide vaccine, 23 valent Devang Hall Work Phone: [facility] Payers Date Payer Category Payer Medicare AETNA MEDICARE A ETNA MEDICARE ASSURE [id number] 2021-Present [id number] [place] [address] [id number] 2017 Medicare [id number] 1958 Medicare [id number] [id number] 1946 Unknown [id number] 2.16.840.1.712607.3.579.2.356 1946 Unknown [id number] 2.16.840.1.063786.3.579.2.356 1946 Unknown [id number] 2.16.840.1.735278.3.579.2.356 1946 Unknown [id number] 2.16.840.1.123504.3.579.2.356 1946 Unknown [id number] 2.16.840.1.990437.3.579.2.593 1946 Unknown [id number] 2.16.840.1.135492.3.579.2.593 1946 Unknown [id number] 2.16.840.1.997755.3.579.2.593 1946 Unknown [id number] 2.16.840.1.275759.3.579.2.593 1946 Unknown [id number] 2.16.840.1.420753.3.579.2.593 1946 Unknown [id number] 2.16.840.1.825934.3.579.2.1259 1946 Unknown [id number] 2.16.840.1.592111.3.579.2.1259 1946 Unknown [id number] 2.16.840.1.184735.3.579.2.1244 1946 Unknown [id number] 2.16.840.1.989957.3.579.2.1244 1946 Unknown [id number] 2.16.840.1.026582.3.579.2.727 1946 Unknown [id number] 2.16.840.1.391089.3.579.2.727 1946 Unknown [id number] 2.16.840.1.863503.3.579.2.727 1946 Unknown [id number] 2.16.840.1.863660.3.579.2.727 1946 Unknown [id number] 2.16.840.1.417196.3.579.2.727 1946 Unknown [id number] 2.16.840.1.963884.3.579.2.72 1946 Unknown [id number] 2.16.840.1.052910.3.579.2.72 1946 Unknown [id number] 2.16.840.1.706463.3.579.2.72 1946 Unknown [id number] 2.16.840.1.796797.3.579.2.72 1946 Unknown [id number] 2.16.840.1.700159.3.579.2. 1946 Unknown [id number] 2.16.840.1.600141.3.579.2.727 1946 Unknown [id number] 2.16.840.1.803722.3.579.2.7 1946 Unknown [id number] 2.16.840.1.402525.3.579.2.727 1946 Unknown [id number] 2.16.840.1.926716.3.579.2. 1946 Unknown [id number] 2.16.840.1.154374.3.579.2.727 1946 Unknown [id number] 2.16.840.1.497303.3.579.2. Self-pay Self Pay [id number] Unknown [employer] Social History Date Type Detail [facility] Start: 1945 Sex Assigned At Male F [facility] Start: 11-14-2023 Social alcohol use Social alcohol us e -[facility] 250 DO Work Phone: Start: 06-16-2019 End: 11-15-2021 Tobacco smoking status Ex-smoker (finding) [facility] Comment on above: pt quit smoking in 984 Start: 11-14-2023 Sex Assigned At Male [facility] Tobacco smoking status Never [facility] Comment on above: pt quit smoking in 984 Start: 01-01-2023 Tobacco smoking stat [facility] Never Smoker [facility] [employer] Other History of tobacco use Current smoker [facility] Work Phone: History of tobacco use Cigarette Smoker U [facility] Work Phone: Start: 11-14-2023 Tobacco use and exposure Smokeless tobacco non-user [facility] Work Phone: Start: 11-14-2023 Alcohol intake Ex-drinker (finding) [facility] Work Phone: Start: 1945 Sex Assigned At Not on file [facility] Work Phone: Start: 11-04-2023 End: 11-14-2023 Exposure to SARS-CoV-2 (event) Not sure [facility] Medical Equipment Procedure Code Equipment Code Equipment Origin al Text Equipment Identifier Dates FDA Start: 06-16-2019 CL CLOSURE DEVIC E EXOSEAL 6F FDA Start: 06-16-2019 CATARACT EXTRACT ION W/ INTRAOCULAR LENS Adolph Schultz DO 11/02/20 Non Biological Eye R [id number] FDA Start: 11-02-2020 CL CLOSURE DEVIC E [...] /State Functional Status Date Assessment Result Facility 05-02-2024 Functional Status N/A [facility] 03-14-2024 Functional Status N/A [facility] 01-25-2024 Functional Status N/A [facility] 01-09-2024 Functional Status N/A [facility] 12-14-2023 Functional Status N/A [facility] 12-10-2023 Functional Status N/A [facility] 11-09-2023 Functional Status N/A [facility] 10-08-2023 Functional Status N/A [facility] 09-14-2023 Functional Status N/A [facility] 08-07-2023 Functional Status N/A [facility] 05-11-2023 Functional Status N/A [facility] 05-01-2023 Functional Status N/A [facility] 03-19-2023 Functional Status N/A [facility] 03-12-2023 Functional Status N/A [facility] 11-28-2022 Functional Status N/A [facility] 05-30-2022 Functional Status N/A [facility] 05-05-2022 Functional Status N/A [facility] Clinical Notes 12-29-2020 to 05-02-2024 Note Date & Type Note Facility 05-02-2024 Evaluation + Plan note Extrac yina from: Title:Pain Managment Follow up Author:Stephenie Claudio Date:05/02/24 Impression and Plan Patient is a 78-year-old male with a past medical history significant for postlaminectomy syndrome, chronic pain, right knee pain and right knee replacement. In regards to his postlaminectomy syndrome we have trialed a multitude of procedures and medications. He is not able to tolerate them. He is using amitriptyline without any significant side effects. We will increase this to 25 mg at bedtime and we discussed the spinal cord stimulator once again. He has looked into the information he would like to pursue this. We will plan to pursue a psych referral and we will plan to pursue a spinal cord stimulator trial. Questions and concerns were all answered and discussed In regards to his right knee pain we discussed possible right-sided genicular nerve block. At this time, he declined stating that this is secondary to the other problems he is having. He would like to get the lower back and leg symptoms addressed first. He is eager to pursue the spinal cord stimulator trial. Follow-up for the spinal cord stimulator trial once authorization has been obtained ZACARIAS score: 56%. [facility]06-28-2024 NoteConsultation Note Patient: RIDGE ROLAND Age: 78 years Sex: Male : 1945 Associated Diagnoses: None Author: Stephenie Barrios PA-C Subjective Chief complaint 05/02/2024 10:25 EDT lower back pain . Patient is a 78-year-old male. He presents today for a follow-up after trialing amitriptyline 10 mgat bedtime. He has not noticed much by the way of relief but does not really notice side effects either. He states maybe a little bit of tiredness but nothing unbearable. He is not able to tolerate codeine, tramadol, oxycodone, hydrocodone, Lyrica, gabapentin, and Cymbalta. He has had side effects with all these medications. Previous injections have not helped. This has included sacroiliac joint injection as well as lumbar RFA. He continues to have lower back pain and some leg pain. He also has right knee pain. At this time, he rates his discomfort an 8/10. This affects his ambulatory status. This affects his quality of life. This affects his activities and affects his ability to do things he wants to do. He wonders what options he has available. Health Status Allergies: Allergic Reactions (Selected) Severity Not Documented Cymbalta- Hallucinations. Oxybutynin- Hallucinations. OxyCODONE- Visual hallucinations., Allergies (3) Active Severity Reaction oxyCODONE Visual hallucinations oxybutynin Hallucinations Cymbalta Hallucinations Current medications: (Selected) Prescriptions Prescribed Viagra 50 mg Tab: See Instructions, 1-2 tab(s) po 1 hr before sexual acitivity. do not exceed 2 tabs in 24 hrs., # 15 tab(s), Refills(s) 3, Pharmacy: [facility]/pharmacy #[id number], 193, cm, 08/31/22 9:11:00 EDT, Height/Length Dosing, 114.5, kg, 08/31/22 9:11:00 EDT, Weight Dosing... amitriptyline 10 mg Tab: 10 mg = 1 tab(s), Oral, Once a day (at bedtime), X 30 day(s), # 30 tab(s),Refills(s) 1, [id number] 193, cm, 03/14/24 9:55:00 EDT, Height/Length Dosing, 104.5, kg, 03/14/24 9:55:00 EDT, Weight Dosing amitriptyline 25 mg Tab: 25 mg = 1 tab(s), Oral, Once a day (at bedtime), X 30 day(s), # 30 tab(s),Refills(s) 1, [id number], 193, cm, 05/02/24 10:29:00 EDT, Height/Length Dosing, 104.5, kg, 03/14/24 9:55:00 EDT, Weight Dosing pregabalin 25 mg Cap: 25 mg = 1 cap(s), Oral, BID, # 60 cap(s), Refills(s) 2, [id number], 193, cm, 11/09/23 11:29:00 [...] list: All Problems Hypercholesterolemia / SNOMED CT 80068113 / Confirmed Hernia, inguinal, right / SNOMED CT 975738334 / Confirmed BPH with urinary obstruction / SNOMED CT 2798079367 / Confirmed Elevated PSA / SNOMED CT 8065735939 / Confirmed Impotence / SNOMED CT 7610872172 / Confirmed Urinary frequency / SNOMED CT 829489447 / Confirmed Nocturia / SNOMED CT 007498439 / Confirmed Weak urinary stream / SNOMED CT 697836180 / Confirmed Gross hematuria / SNOMED CT 278144715 / Confirmed Anticoagulated / SNOMED CT 542725955 / Confirmed Urge incontinence / SNOMED CT 601500773 / Confirmed Chronic prostatitis / SNOMED CT 66623714 / Confirmed Dysuria / SNOMED CT 55677339 / Confirmed Urinary retention / SNOMED CT 989036512 / Confirmed BMI 31.0-31.9,adult / SNOMED CT 152709892 / Confirmed Incomplete bladder emptying / SNOMED CT 065727772 / Confirmed Post-void dribbling / SNOMED CT 604477278 / Confirmed Incontinence without sensory awareness / SNOMED CT 9386279602 / Confirmed At risk for falls / SNOMED CT 884037228 / Possible ED (erectile dysfunction) / SNOMED CT 0758881871 / Confirmed Leaking of urine / SNOMED CT 8623857341 / Confirmed Urinary incontinence / SNOMED CT 5636444600 / Confirmed Prostate cancer screening / SNOMED CT 730715816 / Confirmed Resolved: [facility] Resolved: 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 Eye: Normal conjunctiva. HENT (more content not included)...[facility]: Result Comment: Electronically Signed By: Stephenie Barrios PA-C\.br\Date and Time Signed: 05/02/24 10:53 [id number] Evaluation + Plan noteExtracted from: Title:Pain Managment [...] Date:05/02/2024 10:30:00 AM Scheduled Provider:Stephenie Barrios PA-C Location:.[facility] Appointment Type:Pain Management - Follow Up (FT) [facility]03-22-2024 Evaluation + Plan noteExtracted from: Title:Pain Managment [...] Date:03/14/2024 09:45:00 AM Scheduled Provider:Stephenie Barrios PA-C Location:[facility] Appointment Type:Pain Management - Follow Up (FT) [facility]03-06-2024 Evaluation + Plan noteExtracted from: Title:Bilateral sacroiliac [...] PM Scheduled Provider:Stephenie Barrios PA-C Location[facility] Appointment Type:Pain Management - Follow Up (FT) [facility]03-06-2024 Note [id number] [facility] 01-09-2024 NoteDiagnosis: M46.1, bilateral sacroiliitis Procedure: [...] procedure, and agrees to continue currently prescribed/recommended therapies.[facility] Comment on above:Result Comment: Electronically Signed By: Bert Huang DO\.br\Date and Time Signed: 01/09/24 11:32 [id number] Hospital Discharge instructions Patient Education 12/14/2023 10:59:33 [...] nerve stimulation). ?For women, using a medical biller to prevent urine leaks. This is a [...] right after experiencing incontinence. General instructions Take xwrv-xip-mqavsbu and prescription medicines only as told by [...] important. Where to find more information National [place] of Diabetes and Digestive and Kidney Diseases: www.niddk.nih.gov [employer] [employer]: www.urologyhealth.org Contact a health care [...] provider. Document Revised: 05/27/2021 Document Reviewed: 05/27/2021 theDrop Patient Education 2022 [employer]po[employer]. Follow Up Care 12/07/2023 15:16:05 With:DUC WALTERS, Homero Marie, URL Address: [facility] [address] [place] [address]- [phone] When: only if needed [facility] 02-05-2024 Evaluation + Plan noteExtracted from: [...] Date:12/14/2023 09:30:00 AM Scheduled Provider:Homero XAVIER MD Location:[facility] Appointment Type:URO Office Visit [facility]01-10-2024 History of Present illness Narrative* Marisol Connors [...] By signing my name below, I, Ruby GaoIlir SILVA , Scribe attest that this documentation has been prepared under the direction and in the presence of Marisol Connors MD. Assessment/Plan 1. Arteriosclerosis of coronary artery Follow Up In Cardiology 2. Status post coronary angioplasty 3. Dyslipidemia 4. Essential hypertension 5. Obesity (BMI 30.0-34.9) 6. At risk for falls [facility] Work Phone: [phone] Instructions* Patient Instructions* Steven Wheeler MA - [...] Fall Prevention Education Given [facility] Work Phone: [phone] Evaluation + Plan noteExtracted from: Title:Pain Managment [...] Date:12/10/2023 11:15:00 AM Scheduled Provider:Bib Sanchez MD [facility] [place] Appointment Type:Pain Management - Follow Up (FT) Appointment Date:12/11/2023 01:00:00 PM Scheduled Provider:ALANIS WOOD PA-C Location:[facility] Appointment Type:URO Office Visit [facility]12-19-2023 Evaluation note* Encounter Date Diagnosis Assessment Notes [...] Oct, Fatigue, unspecified type (ICD-10 - R53.83) [facility] Other 12-04-2023 [id number] [facility] 09-14-2023 Evaluation + Plan noteExtracted from: Title:Pain [...] as above mentioned ZACARIAS score: 28% [facility]10-31-2023 Note [id number] [facility] 08-07-2023 [id number]#1.00CD:127[facility]07-25-2023 Note [id number]:127Fisher [facility] 05-11-2023 Evaluation + Plan noteExtracted from: Title:Pain [...] clinic sooner if necessary. ZACARIAS score: 42% [facility]06-29-2023 Evaluation note* Encounter Date Diagnosis Assessment Notes Treatment Notes Treatment Clinical Notes Apr, Thyroid cyst (ICD-10 - E04.1) FNA non-diagnostic - 2014, US: stable nodules, no further scans necessary - 04/2023 [facility] Other 05-15-2023 Evaluation + Plan noteExtracted from: Title:Pain Managment [...] clinic sooner if necessary. ZACARIAS score: 48% [facility]04-19-2023 Evaluation note* Encounter Date Diagnosis Assessment Notes Treatment Notes Treatment Clinical Notes Feb, Low back pain, unspecified (ICD-10 - M54.50) [facility] Other 02-27-2023 Evaluation note* Encounter Date Diagnosis [...] R26.89) Dec, Physical deconditioning (ICD-10 - R53.81) [facility]. Other 01-25-2023 Evaluation note* Encounter Date Diagnosis Assessment Notes Treatment Notes Treatment Clinical Notes Nov, Low back pain, unspecified (ICD-10 - M54.50) Nov, Other chronic pain (ICD-10 - G89.29) [facility] Other 01-24-2023 Hospital Discharge instructions Patient Education [...] urethra. Follow these instructions at home: Take uyqf-mhi-syvvbzl and prescription medicines only as told by [...] 10/22/2006 Document Revised: 09/16/2019 Document Reviewed: 11/26/2017 theDrop Patient Education 2019 TempoIQ. Follow Up Care 08/31/2022 09:40:03 With:ALANIS WOOD PA-C, URL Address: [address] [place] [address] When: Unknown [facility] 07-26-2022 Hospital Discharge instructions Patient Education 05/30/2022 [...] urethra. Follow these instructions at home: Take hrji-gyd-cypoghm and prescription medicines only as told by [...] 10/22/2006 Document Revised: 09/16/2019 Document Reviewed: 11/26/2017 theDrop Patient Education 2020 TempoIQ. Follow Up Care 05/11/2022 10:39:09 With:Remy Cruz MD, Goldy Lopez, URO Address: [facility] [address] [place] [address] [phone] When:Within 2 Month(s) Comments:PVR [facility] 07-07-2022 Hospital Discharge instructions Patient Education [...] Alberto Address: [facility] [address], [place] [address]- [employer] (1) When:4 weeks Comments:PVR with next office visit [facility]06-15-2021 NoteHNO ID: [id number] Author: Alanis Nguyen MD Service: ? Author [...] He had a second opinion with Dr. 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 He established with [...] loss of consciousness, he was brought to [facility] needing stitches. CT c- spine [...] as he can do more at the [facility]. They are planning to go back to the [facility]. Current Outpatient Medications Medication Sig Dispense [...] pain, no s (more content not included)... [facility]02-24-2021 NotePatient Outreach (COVAMN) RIDGE ROLAND ([id number]) 1945 M Date Time Provider Department 12/29/20 WEATHERS, YARITZA VERDE During your visit today, we recorded the following information about you: Allergies As of Date: 12/29/2020 (No Known Allergies) Date Reviewed: 11/16/2020 Reviewed by: Mauri (Shira) SHIRA Horn - Fully Assessed Order(s):SARS-COVID VACCINE 1ST DOSE APPT [[id number]] Order #: [id number] FUTURE Prescriptions as of 12/29/2020 Sig: CYANOCOBALAMIN [...] Of Date: 12/29/2020 (None) Encounter Status:Closed by [employer], PRODUSER on 01/03/21[facility] Evaluation + Plan note Future Appointments Appointment Date:05/11/2022 10:00:00 AM Scheduled Provider: Location:[facility] Appointment Type:Urology FT [facility] evaluation + Plan note Future Appointments Appointment Date:05/30/2022 09:30:00 AM Scheduled Provider:Goldy Alberto Jr., MD Location:[facility] Appointment Type:URO [facility] note Future Appointments Appointment Date:08/08/2022 08:45:00 AM Scheduled Provider:Goldy Alberto Jr., MD Location:[facility] Appointment Type:URO Office Visit [facility] evaluation + Plan note Future Appointments Appointment Date:01/10/2023 11:00:00 AM Scheduled Provider:ALANIS WOOD PA-C [facility] evaluation + Plan note Future Appointments Appointment Date:03/19/2023 08:30:00 AM Scheduled Provider:Stephenie Barrios PA-C Location:[facility] [place] Appointment Type:Pain Management - Follow Up (FT) [facility] note Future Appointments Appointment Date:05/11/2023 10:00:00 AM Scheduled Provider:Stephenie Barrios PA-C Location:[facility] Appointment Type:Pain Management - Follow Up (FT) [facility] note Future Appointments Appointment Date:08/28/2023 07:45:00 AM Scheduled Provider:Bib Sanchez MD Location:[facility] Appointment Type:Pain Management - Follow Up (FT) [facility] note Future Appointments Appointment Date:11/09/2023 11:15:00 AM Scheduled Provider:Stephenie Barrios PA-C Location:[facility] [place] Appointment Type:Pain Management - Follow Up (FT) [facility] CenterEvaluation noteNo InformationNost. [facility] [place] Other Evaluation noteNoHybrent [place] Other Evaluation note* Diagnosis Arteriosclerosis of coronary artery- Primary Status post coronary angioplasty Postsurgical percutaneous transluminal coronary angioplasty status Dyslipidemia Other and unspecified hyperlipidemia Essential hypertension Unspecified essential hypertension Obesity (BMI 30.0-34.9) At risk for falls Personal history of fall documented in [facility] encounter [facility] Work Phone: Evaluation note* Diagnosis Onset [...] hernia repair Hospitalization History see surg hx [facility] [employer] Other Hiscugq general Narrative - Reported* Type Description Date [...] eyes Hospitalization History see surgery list [facility] Other History general [facility] - [facility] [employer] Other Hospital course Narrative No data available for this section [facility] Hospital Discharge instructions No data available for this section [facility] progress note No data available for this section [facility] reason for referral (narrative)* Consultation (Routine) - Authorized Specialty Diagnoses / Procedures Referred By Contac t Referred To Contact Cardiology Diagnoses Arteriosclerosis of coronary artery Procedures Follow Up In Cardiology Marisol Connors MD [address] [facility] [address], [address] [place] [id number] Marisol Connors MD [address] [facility] [address] [place] [address] Referral ID Status Reason Start Date Expiration Date V isits Requested Visits Authorized [id number] Authorized 11/14/2023 11/13/[address] [facility] Work Phone: Summary Purpose Family History No [...] history Unknown father Unknown Not Specified Unknown Relationship Condition Age at Onset Recorded Date/T beatriz Not Specified No pertinent family history Unknown father Unknown mother Unknown Advance Directives No Advanced Directives Records Found Advance Directive Response Recorded Date/ Time Advance [...] 1 Lumbar spondylosis ( M47.816) Referral Organization [facility] Referring Provider First Name Devang Referring Provider Last Name Rafael Referring Provider Specialty Internal Me dicine Referred Organization [facility] Referred Provider Allison Kenyon Referred Address [address] [place], [place],[address] Referred Provider Specialty Neurological Surgery Referral Priority [...] visit, subsequent Screening PSA (prostate specific antigen) Chief Complaint [facility]ness ER follow up Reason for Visit ASHD (arteriosclerot ic heart [...] DATE CREATED AUTHOR AUTHOR'S ORGANIZ ATION 09/10/2020 [facility] DATE CREATED AUTHOR AUTHOR'S ORGANIZ ATION 12/26/2021 [facility] DATE CREATED AUTHOR AUTHOR'S ORGANIZ ATION 03/11/2023 [facility] DATE CREATED AUTHOR AUTHOR'S ORGANIZ ATION 03/11/2023 [facility] DATE CREATED AUTHOR AUTHOR'S ORGANIZ ATION 03/18/2023 [facility] [place] [facility] DATE CREATED AUTHOR AUTHOR'S ORGANIZ ATION 03/01/2024 [facility] EPIC DATE CREATED AUTHOR AUTHOR'S ORGANIZ ATION 05/25/2024 [facility] DATE CREATED AUTHOR AUTHOR'S ORGANIZ ATION 05/26/2024 [facility] Care Team (unrecognized sect ion and content) [...] January 18, 2024 End: January 18, 2024 Tuck 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 Relationship Specialty Start Date End Date Devang Hall DO [facility] [address] [place] [address] PCP - General Internal Medicine 11/14/23 Team Status: Inactive Member Role Status Dates Devang Hall DO Attending Provider Active Sta rt: October 23, 2023 End: October 23, 2023 Team Status: Active Member Role Status Dates Devang Hall DO Primary Care Provide r, Attending Provider Active Start: April 29, 2024 Team Status: Inactive Member Role Status Dates Devang Hall DO Primary Care Provide r, Attending Provider Active Start: May 07, 2024 End: May 07, 2024 REASON FOR VISIT (unrecogniz ed section [...] BE BASED ON THE PRIMARY CLINICAL RECORDS. [facility]. provides no warranty or guarantee of the accuracy or completeness of information in this document.
--- NOTE | 2024-05-27 07:38 | MR_ITS ---
[address] [address] Patient Name: RIDGE ROLAND MRN: [id number] date: 1945 Sex: M Assigned Patient Location: MRI Current Patient Location: MRI Accession/Order Number: [id number] Exam Date: 05/27/2024 08:00 Report Date: 05/27/2024 16:01 At the request of: FATOUMATA BEYER Procedure: MR cervical spine wo con EXAMINATION: MR cervical spine wo con HISTORY: Cervical Arthritis With Myelopathy M47.12 ; neck pain COMPARISON: No relevant comparison available. TECHNIQUE: A variety of imaging planes and parameters were utilized for visualization of suspected pathology without and/or with intravenous Dotarem contrast based on examination type. FINDINGS: CRANIOCERVICAL AREA: Normal foramen magnum with no Chiari malformation. PARASPINAL AREA: Normal with no visible mass. BONES: 3 mm anterolisthesis of C6 on 7. CORD: Normal caliber, contour, and signal intensity. CERVICAL DISC LEVELS: C2-C3: Moderate left foramen narrowing secondary to mild diffuse disc bulging, uncovertebral joint spurring, and moderate degenerative facet arthropathy. C3-C4: Marked right, moderate left foramen narrowing. Mild central canal narrowing. Mild diffuse disc bulging, uncovertebral joint spurring, right greater than left, mild degenerative facet arthropathy, right greater than left. C4-C5: Marked right, moderate left foramen narrowing. Mild central canal narrowing. Mild diffuse disc bulging, uncovertebral joint spurring, and moderate degenerative facet arthropathy, right greater than left. C5-C6: Moderate central canal and mild-moderate foramen narrowing bilaterally. Mild diffuse disc bulging with small posterior broad-based disc protrusion. No significant disc height reduction. Mild degenerative facet arthropathy, right greater than left. C6-C7: Mild grade 1 anterolisthesis of C6 on 7. Moderate central canal narrowing and left foramen narrowing. Mild right foramen narrowing. Mild posterior central disc bulging. Uncovertebral joint spurring and mild degenerative facet arthropathy. C7-T1:. Early degenerative disc disease is present without focal protrusion or neural impingement. MR/MR cervical spine wo con IMPRESSION: 1. Multilevel moderate to marked foramen narrowing and a few levels with moderate central canal narrowing secondary to the combination of mild to moderate disc bulging, uncovertebral joint spurring, and moderate facet arthropathy. Electronically authenticated by: KIRK STREETER Date: 05/27/2024 16:01
== END 2024-05-27 07:35 | disposition home or self-care (01) ==
LOC: MRI 07:34
PROVIDERS: PCP Internal Medicine; Visit Provider Personal Emergency Response Attendant
DX: M47.12 Other spondylosis with myelopathy, cervical region (principal)
CPT/HCPCS: 72141

== ENCOUNTER 2024-12-12 09:00 | Outpatient (OUT) | payer MEDICARE, SELFPAY ==
--- NOTE | 2024-12-12 | XR_ITS ---
The [address] [address] Patient Name: RIDGE ROLAND MRN: [id number] date: 1945 Sex: M Assigned Patient Location: Current Patient Location: Accession/Order Number: [id number] Exam Date: 12/12/2024 09:00 Report Date: 12/15/2024 07:52 At the request of: MARTI RODRIGUEZ Procedure: XR lumbar spine 2-3V EXAMINATION: XR lumbar spine 2-3V HISTORY: LUMBAR SPINE PAIN COMPARISON: No relevant comparison available. FINDINGS: BONES: 3 mm retrolisthesis of L3 on L4. Mild dextrocurvature on the frontal projection. Moderate diffuse spondylosis and facet osteoarthropathy most significant at L3-S1 DISC SPACES: Moderate to severe multilevel disc space narrowing. Interbody spacer L5-S1. PARASPINOUS: Negative. No paraspinous abnormality is seen. OTHER: No dynamic instability flexion-extension. Neurostimulator extending off the field of view XR/XR lumbar spine 2-3V IMPRESSION: Moderate to severe degenerative changes with no dynamic instability. Electronically authenticated by: ELIZA THAO Date: 12/15/2024 07:52
--- OUTSIDE RECORDS SUMMARY | 2024-12-12 09:18 | XMS_ITS | CCD ---
Author Organization [facility] Care Team Providers Care Lead Web Application Developer Name Role Phone SMITA, ANNMARIE H. Unavailable Unavailable DEVAGN HALL Unavailable Unavailable SMITA, ANNMARIE H. Unavailable [...] Primary Care Provider MARISOL CONNORS Attending Unavailable DEVANG HALL Primary Care Unavailable MARISOL CONNORS Attending Unavailable MARISOL CONNORS Referring Unavailable DEVANG HALL Primary Care Unavailable BALL, DEVANG Referring Unavailable Sophie, Stephenie Attending Unavailable Bib Sanchez Attending Unavailable MD Bib Sanchez Admitting Unavailable RAFAEL, DEVANG Referring Unavailable ALANIS WOOD Attending Unavailable Homero XAVIER Attending Unavailable ALANIS WOOD Attending Unavailable Bert Huang Attending Unavailable RAFAEL, DEVANG Referring Unavailable Sophie PA-C Stephenie Admitting Unavailabl e BALL, DEVANG Referring Unavailable Barrios, Stephenie Attending Unavailable RAFAEL, DEVANG Referring Unavailable Barrios, Stephenie Admitting Unavailable Barrios, Stephenie Attending Unavailable Sophie PA-C Stephenie Admitting Unavailabl e BALL, DEVANG Referring Unavailable Barrios, Stephenie Attending Unavailable Sophie PA-C Stephenie Admitting Unavailabl e BALL, DEVANG Referring Unavailable Sophie, Stephenie Attending Unavailable Bib Sanchez Attending Unavailable Bib Sanchez Referring Unavailable MD Bib Sanchez Admitting Unavailable Bib Sanchez Attending Unavailable Bib Sanchez Referring Unavailable MD Bib Sanchez Admitting Unavailable Bib Sanchez Attending Unavailable Bib Sanchez Referring Unavailable MD Bib Sanchez Admitting Unavailable Bert Huang Attending Unavailable DO Bert Huang Admitting Unavailabl e Bert Huang Referring Unavailable Bert Huang Attending Unavailable Bert Huang Admitting Unavailable Sophie PA-Shlomo Stephenie Admitting Unavailabl e BALL, DEVANG Referring Unavailable Stephenie Barrios Attending Unavailable Devang Hall MD Primary Care Provider Bert Huang Admitting Unavailable Bert Huang Attending Unavailable Bert Huang Admitting Unavailable Bert Huang Attending Unavailable RAFAEL, DEVANG Referring Unavailable Barrios, Stephenie Admitting Unavailable Barrios, Stephenie Attending Unavailable RAFAEL, DEVANG Referring Unavailable Bert Huang Attending Unavailable Bert Huang Referring Unavailable Bert Huang Attending Unavailable Bert Huang Referring Unavailable DEVANG HALL Referring Unavailable RAMONITA Barrios Admitting UnavailRAMONITA Sylvester Attending Unavailabl e DEVANG HALL Referring Unavailable Bert Huang Admitting Unavailable Bert Huang Attending Unavailable Devang Hall DO Primary Care Provider JR. JEAN, ANDREW Keenan Attending Unavaila jena GARAY JR., ANDREW Keenan Referring Unavaila ble MONTES, FATOUMATA J Attending Unavailable BLACKSTONPHILIP Attending Unavailable MONTES, FATOUMATA J Referring Unavailable BLACKSTONPHILIP Attending Unavailable MONTES, FATOUMATA J Referring Unavailable BRINK, JENNY Attending Unavailable MONTES, FATOUMTAA J Referring Unavailable KELBLEY, TITA Attending Unavailable MONTES, FATOUMATA J Referring Unavailable MONTES, FATOUMATA J Attending Unavailable BRINK, JENNY Attending Unavailable MONTES, FATOUMATA J Referring Unavailable BRINK, JENNY Attending Unavailable MONTES, FATOUMATA J Referring Unavailable BRINK, JENNY Attending Unavailable MONTES, FATOUMATA J Referring Unavailable ZABRINAMERLIN Attending Unavailable MONTES, FATOUMATA J Referring Unavailable TATTERSALL, PATTI Attending Unavailable MONTES, FATOUMATA J Referring Unavailable BRINK, JENNY Attending Unavailable MONTES, FATOUMATA J Referring Unavailable BRINK, JENNY Attending Unavailable MONTES, FATOUMATA J Referring Unavailable PHILIPPERAMÍREZ Attending Unavailable BRINK, JENNY Attending Unavailable MONTES, FATOUMATA J Referring Unavailable TATTERSALL, PATTI Attending Unavailable MONTES, FATOUMATA J Referring Unavailable BRINK, JENNY Attending Unavailable MONTES, FATOUMATA J Referring Unavailable BRINK, JENNY Attending Unavailable MONTES, FATOUMATA J Referring Unavailable BRINK, JENNY Attending Unavailable MONTES, FATOUMATA J Referring Unavailable KELBLEY, TITA Attending Unavailable MONTES, FATOUMATA J Referring Unavailable BRINK, JENNY Attending Unavailable MONTES, FATOUMATA J Referring Unavailable BRINK, JENNY Attending Unavailable MONTES, FATOUMATA J Referring Unavailable BRINK, JENNY Attending Unavailable MONTES, FATOUMATA J Referring Unavailable BLACKSTONPHILIP Attending Unavailable MONTES, FATOUMATA J Referring Unavailable JR. JEAN, ANDREW Keenan Attending Unavaila jena GARAY JR., ANDREW Keenan Referring Unavaila ble Unavailable Unavailable Unavailable Allergies Allergy Classification Reported Allergen(s) Allergy Type Date of Onset Reaction(s) Facility DULoxetine (1 source) DULoxetine; Translations: [duloxetine] Drug Allergy Hallucinations (finding) [facility] Opioid Agonists (1 source) oxyCODONE; Translations: [oxycodone] Drug Allergy Visual hallucinations [facility] oxybutynin (1 source) oxybutynin; Translations: [oxybutynin] Drug Allergy Hallucinations (finding) [facility] (8 sources) Acetaminophen / HYDROcodone; Translations: [HYDROcodone-Alberto taminophen TABS] Drug Allergy 10-12-20 Hallucinations [facility] (20 sources) oxybutynin; Translations: [oxybutynin] Drug Allergy Hallucinations (finding) [facility] (20 sources) oxyCODONE; Translations: [oxycodone] Drug Allergy 03-12-20 Hallucinations [facility] (1 source) oxyCODONE Drug Allergy 11-05-19 18 [facility] Repository (14 sources) DULoxetine; Translations: [duloxetine] Drug Allergy Hallucinations (finding) [facility] (20 sources) Acetaminophen / HYDROcodone; Translations: [HYDROCODONE-ALBERTO TAMINOPHEN] Drug Allergy 10-12-20 [facility] Repository (3 sources) Sulfonamides (Antibiotic); Translations: [sulfa drugs] Propensity to adverse reactions (disorder) [facility] Repository (20 sources) DULoxetine Drug Allergy 07-15-20 Hallucinations [facility] Medications Current Medications Medication Drug Class(es) Dates Sig (Normalized) Sig (Original) acetaminophen 650 mg oral tablet (7 sources) Start: 06-24-2024 take 650 mg by mouth three times daily as needed for pain Tylenol 650 mg, Oral, TID, PRN as needed for pain, Refills(s) 0 Start Date: 06/24/24 Status: Ordered Start: 06-24-2024 Tylenol Oral, Refills(s) 0 Start Date: 06/24/24 Status: Ordered allopurinol 300 mg oral tablet (20 sources) Xanthine Oxidase Inhibitor Start: 04-28-2024 End: 04-28-2024 take 300 mg by mouth once daily Allopurinol Active 300 MG PO Daily 90 90 April 28 2024 12:40pm Start: 03-30-2024 End: 04-28-2024 take 1 tablet by mouth once daily Allopurinol Discontinued 0 .ROUTE .COMPLEX March 30, 2024 3:48pm April 28, 2024 10:40am TAKE 1 TABLET BY MOUTH EVERY DAY Start: 05-08-2021 End: 03-30-2024 take 300 mg by mouth once daily Allopurinol Discontinu ed 300 MG PO Daily December 27, 2023 1:00am March 30, 2024 3:48pm Start: 12-02-2020 take 1 tablet by addie th once daily allopurinol 100 mg Tab 100 mg = 1 tab(s), Oral, Daily, Refills(s) 0, Gout pain Start Date: 12/02/20 Status: Ordered amitriptyline hydrochloride 25 mg oral tablet (3 sources) Tricyclic Antidepressant Start: 05-02-2024 End: 07-01-2024 take 1 tablet by mouth once daily at bedtime amitriptyline 25 mg Tab 25 mg = 1 tab(s), Oral, Once a day (at bedtime), X 30 day(s), # 30 tab(s), Refills(s) 1, Pharmacy: [facility]/pharmacy #[id number], 193, cm, 05/02/24 10:29:00 EDT, Height/Length Dosing, 104.5, kg, 03/14/24 9:55:00 EDT, Weight Dosing Start Date: 05/02/24 Stop Date: 07/01/24 Status: Ordered Start: 03-14-2024 End: 05-13-2024 take 1 tablet by mouth once daily at bedtime amitriptyline 10 mg Tab 10 mg = 1 tab(s), Oral, Once a day (at bedtime), X 30 day(s), # 30 tab(s), Refills(s) 1, Pharmacy: [facility]/pharmacy #[id number], 193, cm, 03/14/24 9:55:00 EDT, Height/Length Dosing, 104.5, kg, 03/14/24 9:55:00 EDT, Weight Dosing Start Date: 03/14/24 Stop Date: 05/13/24 Status: Ordered amoxicillin 500 mg oral tablet (20 sources) Penicillin-class Antibacterial Start: 07-08-2024 take 4 tablets by mouth once at mealtime amoxicillin (Amoxil) 500 MG tablet Indications: History of total right knee replacement 4 tabs PO once 30-60 mins before procedure with food 4 tablet 3 07/08/2024 Active Ascorbic Acid (20 sources) Vitamin C Start: 04-28-2024 take 1 g by mouth once daily Ascorbic Acid (Vitamin C) Active 1 GM PO Daily April 28, 2024 12:00am Ascorbic Acid (V itamin C) 500 MG capsule as directed Orally Active take 1 tablet by mouth once yosef y ascorbic acid (Vitamin C) 1,000 mg tablet Take 1 tablet (1,000 mg) by mouth once daily. Active aspirin 81 mg oral tablet (20 [...] 12:00am March 04, 2019 8:08am aspirin 81 MG ch ewable tablet 1 (one) time each day at the same time. Active Baby Aspirin Act michelle atorvastatin 40 mg oral tablet (20 sources) HMG-CoA Reductase Inhibitor Start: 06-16-2019 End: 04-28-2024 take 1 tablet by mouth once daily atorvastatin (Lipitor) 40 mg tablet Indications: Hyperlipidemia, unspecified TAKE 1 TABLET BY MOUTH EVERY DAY 90 tablet 3 10/12/2023 Active baclofen 5 mg oral tablet (1 source) gamma-Aminobutyric Acid-ergic Agonist Start: 09-24-2024 End: 10-24-2024 take 1 tablet by mouth three times daily as needed for pain baclofen 5 mg oral tablet 5 mg = 1 tab(s), Oral, TID, take as needed for back pain/stiffness, X 30 day(s), # 90 tab(s), Refills(s) 0, Pharmacy: [facility]/pharmacy #[id number], 193, cm, 09/24/24 9:04:00 EST, Height/Length Dosing, 109, kg, 09/24/24 9:04:00 EST, Weight Dosing Start Date: 09/24/24 Stop Date: 10/24/24 Status: Ordered Calcium (20 sources) Phosphate Binder, Calcium Start: 11-29-2018 take 1 tablet by mouth once daily Calcium 600+D oral tablet 1 tab(s), Oral, Daily, Prophylaxis Start Date: 11/29/18 Status: Ordered Calcium Active Calcium + D TABS TAKE 1 TABLET DAILY. Quantity: 0 Refills: 0 Ordered: 28-Mar-2022 DO Active calcium carbonate 1500 mg or al tablet (20 sources) calcium carbonat e 1500 (600 Ca) MG tablet 1 (one) time each day at the same time. Active calcium carbonat e 600 mg calcium (1,500 mg) tablet every 12 hours. Active take 1 tablet by addie th every twelve hours Calcium 600 MG 1 tablet with meals Orall y Twice a day for 30 day(s) Active Calcium Carbonate-Vitamin D3 (6 sources) Vitamin D Start: 07-02-2017 take 1 tablet by mouth once daily Calcium Carbonate-Vitamin D3 Active 1 TAB Oral Daily July 02, 2017 10:49am Start: 07-02-2017 Calcium Carbon ate-Vitamin D3 (Calcium 500 + D) 500 mg(1,250mg) -400 unit Tablet Active 1 TAB PO Daily July 02, 2017 12:00am cephalexin 500 mg oral capsule (7 sources) Cephalosporin Antibacterial Start: 08-19-2024 take 1 capsule by mouth every twelve hours cephalexin 500 mg Cap 500 mg = 1 cap(s), Oral, q12hr, # 20 cap(s), Refills(s) 0, Pharmacy: [facility]/pharmacy #[id number], 193, cm, 08/19/24 7:28:00 EDT, Height/Length Dosing, 106.9, kg, 07/02/24 9:05:00 EDT, Weight Dosing Start Date: 08/19/24 Status: Ordered Start: 07-24-2017 End: 07-31-2017 take 1 capsule by mouth three times daily Cephalexin (Keflex) 500 mg capsule Discontinued 500 MG PO Three times daily 25 05July 24, 2017 12:00am July 31, 2017 12:02am space evenly during waking hours cetirizine hydrochloride 10 mg oral tablet (9 [...] procedure, # 14 tab(s), Refills(s) 0, Pharmacy: [facility]/pharmacy #[id number], 193, cm, 03/14/22 10:49:00 EDT, [...] day(s), # 60 cap(s), Refills(s) 1, Pharmacy: [facility]/pharmacy #[id number], 193, cm, 01/25/24 13:38:00 EDT, Height/Length Dosing, 102.4, kg, 01/25/24 13:38:00 EDT, Weight Dosing Start Date: 01/25/24 Stop Date: 03/25/24 Status: Ordered erythromycin 0.005 mg/mg ophthalmic ointment (1 source) Macrolide, Macrolide Antimicrobial Start: 02-07-2021 erythromycin ophthalmic 0.5% ointment 0.5 in, Eye-Both, QID, 3.5 gram, Refill(s) 1, [facility]/pharmacy #[id number], 192, cm, 02/03/21 8:57:00 EDT, Height/Length Dosing, 116, kg, 02/03/21 8:57:00 EDT, Weight Dosing Start Date: 02/07/21 Status: Ordered famotidine 20 mg oral tablet (9 sources) Histamine-2 Receptor Antagonist Start: 11-01-2019 take 1 tablet by mouth every twelve hours Fish Oils (9 sources) hydroCHLOROthiazide 25 mg oral tablet (20 sources) Thiazide Diuretic Start: 01-03-2024 End: 04-28-2024 take 1 tablet by mouth once daily Hydrochlorothiazide Discontinued 0 .ROUTE .COMPLEX 90 January 03, 2024 8:12pm April 28, 2024 12:43pm TAKE 1 TABLET BY MOUTH EVERY DAY Start: 07-02-2017 End: 01-03-2024 take 1 tablet by mouth once daily hydroCHLOROthiazide (HYDRODiuril) 25 mg tablet Take 1 tablet (25 mg) by mouth once daily. 01/10/2022 Active hydroCHLOROthiaz lexis Active losartan potassium 25 mg oral tablet (20 sources) Angiotensin 2 Receptor Pratik Start: 06-12-2024 losartan 25 mg Tab Refills(s) 0 Start Date: 06/12/24 Status: Ordered Start: 03-17-2024 End: 04-28-2024 take 25 mg by mouth once daily Losartan Discontinued 2 5 MG PO Daily April 28, 2024 10:11am April 28, 2024 12:43pm lutein 25 mg / zeaxanthin 5 mg oral capsule (20 sources) Start: 04-28-2024 take 1 capsule by mouth once daily Lutein-Zeaxanthin Active 1 CAP PO Daily April 28, 2024 12:00am Lutein-Zeaxanthi n 25-5 MG capsule Orally Active take 1 capsule by mouth once royal ly LUTEIN-ZEAXANTHIN ORAL Take 1 capsule by mouth once daily. Active take 1 capsule by mouth once royal [...] mirabegron 50 mg extended release oral tablet (7 sources) beta3-Adrenergic Agonist Start: 10-30-2024 take 1 tablet by mouth once daily, then take 1 tablet by mouth every twenty-four hours mirabegron ER (Myrbetriq) 50 MG 24 hr tablet Take 50 mg by mouth Daily 10/30/2024 Active Start: 07-05-2021 End: 12-25-2022 take 1 tablet by mouth once daily Myrbetriq 50 mg oral tablet, extended release 50 mg = 1 tab(s), Oral, Daily, X 90 day(s), # 90 tab(s), Refills(s) 3, Pharmacy: [facility]), 193, cm, 12/27/21 9:50:00 EST, Height/Length Dosing, 114.5, kg, 12/27/21 9:50:00 EST, Weight Dosing Start Date: 12/30/21 Stop Date: 12/25/22 Status: Ordered nitroglycerin 0.4 mg sublingual tablet (17 sources) Nitrate Vasodilator Start: 06-12-2024 nitroglyce rin 0.[address] 1 TABLET (0.4 MG) UNDER THE TONGUE EVERY 5 MINUTES NEEDED FOR CHEST PAIN Start Date: 06/12/24 Status: Ordered Start: 05-22-2024 nitroglycerin (Nitrostat) 0.4 mg SL tablet Indications: Arteriosclerosis of coronary artery Place 1 tablet (0.4 mg) under the tongue every 5 minutes if needed for chest pain. 25 tablet 11 05/22/2024 Active Start: 09-26-2022 End: 05-22-2024 nitroglycerin (Nitrostat) 0. [address] 1 tablet (0.4 mg) under the tongue every 5 minutes if needed. 09/26/2022 05/22/2024 Discontinued (Reorder) Start: 09-26-2022 Nitroglycerin 0.4 MG Sublingual Tablet Sublingual TAKE DIRECTED. Quantity: 25 Refills: 11 Ordered: 26-Sep-2022 Marisol Connors MD Start : 26-Sep-2022 Active [place] 9-Hnl-Brk-Fish Oil (1 source) Start: 07-02-2017 take 1200 mg by mouth once daily [place] 4-Rgx-Kwe-Fish Oil Active 1200 MG Oral Daily July 02, 2017 10:56am Osteo Bi-Flex Joint Shield (9 sources) microencapsulated potassium chloride 20 meq extended release oral tablet (20 sources) Start: 07-28-2024 KLOR-CON 20 ME Q ER tablet 07/28/2024 Active Start: 04-28-2024 take 20 mEq by mouth once yosef y Potassium Chloride Active 20 MEQ PO Daily 90 90 April 28, 2024 12:00am Start: 03-05-2024 take 1 tablet by addie th once daily Klor-Con M20 20 mEq ER tablet Indications: Hypokalemia TAKE 1 TABLET BY MOUTH EVERY DAY 90 tablet 3 03/05/2024 Active Start: 03-06-2022 take 1 tablet by [...] days Active pregabalin 25 mg oral capsule (12 sources) Start: 11-09-2023 take 1 capsule by mouth twice daily pregabalin 25 mg Cap 25 mg = 1 cap(s), Oral, BID, # 60 cap(s), Refills(s) 2, Pharmacy: [facility]/pharmacy #[id number], 193, cm, 11/09/23 11:29:00 EST, Height/Length Dosing, 110, kg, 11/09/23 11:29:00 EST, Weight Dosing Start Date: 11/09/23 Status: Ordered Start: 04-18-2023 End: 05-18-2023 take 1 capsule by mouth twice daily pregabalin 25 mg Cap 25 mg = 1 cap(s), Oral, BID, X 30 day(s), # 60 cap(s), Refills(s) 0, Pharmacy: [facility]/pharmacy #[id number], 193, cm, 03/19/23 8:54:00 EDT, Height/Length Dosing, 108.9, kg, 03/19/23 8:54:00 EDT, Weight Dosing Start Date: 04/18/23 Stop Date: 05/18/23 Status: Ordered Start: 03-19-2023 take 1 capsule by mo ut twice daily pregabalin 25 mg Cap 25 mg = 1 cap(s), Oral, BID, # 60 cap(s), Refills(s) 0, Pharmacy: [facility]/pharmacy #[id number], 193, cm, 03/19/23 8:54:00 EDT, Height/Length Dosing, 108.9, kg, 03/19/23 8:54:00 EDT, Weight Dosing Start Date: 03/19/23 Status: Ordered End: 05-22-2024 take 1 capsule by mouth once daily pregabalin (Lyrica) 25 mg capsule Take 1 capsule (25 mg) by mouth once daily. 05/22/2024 Discontinued (Therapy completed) sildenafil 50 mg oral tablet (19 sources) Phosphodiesterase 5 Inhibitor Start: 09-07-2022 Viagra 50 mg Tab See Instructions, 1-2 tab(s) po 1 hr before sexual acitivity. do not exceed 2 tabs in 24 hrs., # 15 tab(s), Refills(s) 3, Pharmacy: [facility]/pharmacy #[id number], 193, cm, 08/31/22 9:11:00 EDT, Height/Length Dosing, 114.5, kg, 08/31/22 9:11:00 EDT, Weight Dosing Start Date: 09/07/22 Status: Ordered traMADol hydrochloride 50 mg oral tablet (4 sources) Opioid Agonist Start: 08-19-2024 End: 08-24-2024 take 1 tablet by mouth every eight hours as needed for pain traMADol (Ultram) 50 MG tablet TAKE 1 TABLET BY MOUTH EVERY 8 HOURS NEEDED FOR POSTPROCEDURE PAIN FOR 5 DAYS 08/19/2024 Active Start: 02-07-2021 take 1 tablet by addie every six hours as needed for pain traMADOL 50 mg Tab 50 mg = 1 tab(s), Oral, q6hr, PRN Pain, # 20 tab(s), Refills(s) 0, Pharmacy: [facility]/pharmacy #[id number], 192, cm, 02/03/21 8:57:00 EDT, Height/Length Dosing, 116, kg, 02/03/21 8:57:00 EDT, Weight Dosing Start Date: 02/07/21 Status: Ordered Vitamin B Complex (1 source) Vitamin B Comple x - as directed Orally Active vitamin b12 1 mg oral capsule (11 sources) Vitamin B12 Start: 04-28-2024 take 1000 ug by mouth once daily Cyanocobalamin (Vitamin B-12) Active 1000 MCG PO Daily April 28, 2024 12:00am take 1 tablet by mouth once yosef y cyanocobalamin, vitamin B-12, (Vitamin B-12) 1,000 mcg tablet extended release Take 1 tablet (1,000 mcg) by mouth once daily. Active Vitamin B12 1000 mcg Tab (20 sources) Start: 11-01-2020 take 1 tablet by mouth once daily Vitamin B12 1000 mcg Tab 1,000 mcg = 1 tab(s), Oral, Daily, Refills(s) 0, Prophylaxis Start Date: 11/01/20 Status: Ordered Vitamin C 1000 mg oral tablet (20 sources) Start: 11-01-2020 take 1 tablet by mouth once daily Vitamin C 1000 mg oral tablet 1,000 mg = 1 tab(s), Oral, Daily, Refills(s) 0, Prophylaxis Start Date: 11/01/20 Status: Ordered Completed/Discontinued Medications Medication Drug Class(es) Dates Sig (Normalized) Sig (Original) acetaminophen 325 mg / oxyCODONE hydrochloride 5 mg oral tablet (5 sources) Opioid Agonist Start: 07-24-2017 End: 03-04-2019 take 1 tablet by mouth every six hours Oxycodone-Acetami nophen Discontinued 1 TAB PO Q6H 40 July 24, 2017 12:00am March 04, 2019 8:09am amLODIPine 5 mg oral tablet (20 sources) Dihydropyridine Calcium Channel Pratik Start: 02-26-2024 End: 04-28-2024 take 5 mg by mouth twice daily Amlodipine Discontinued 5 MG PO Twice daily 60 February 27, 2024 6:59am April 28, 2024 12:43pm Start: 11-29-2018 take 10 mg by mouth once daily amlodipine 10 mg, Oral, Daily, High blood pressure Start Date: 11/29/18 Status: Ordered Start: 07-02-2017 End: 05-22-2024 take 5 mg by mouth once daily Amlodipine Discontinued 5 MG PO Daily July 02, 2017 12:00am February 26, 2024 2:59pm amLODIPine Besyl ate Active chondroitin sulfates 200 mg / glucosamine hydrochloride 250 mg oral tablet (6 sources) Start: 07-02-2017 End: 12-27-2023 take 2 tablets by mouth once daily Glucosamine-Chondroitin (Osteo Bi-Flex) 250-200 mg Tablet Discontinued 2 TAB PO Daily July 02, 2017 12:00am December 27, 2023 3:30pm clopidogrel 75 mg oral tablet (20 sources) [id number] Platelet Inhibitor Start: 06-16-2019 End: 12-27-2023 take 1 tablet by mouth once daily Clopidogrel (Plavix) 75 mg tablet Discontinued 75 MG PO Daily June 16, 2019 12:00am December 27, 2023 3:30pm cyclobenzaprine hydrochloride 10 mg oral tablet (5 sources) Muscle Relaxant Start: 07-24-2017 End: 03-04-2019 take 10 mg by mouth every eight hours Cyclobenzaprine Discontinued 10 MG PO Every 8 hours 40 July 24, 2017 12:00am March 04, 2019 8:09am docusate sodium 50 mg / sennosides, assisted 8.6 mg oral tablet (5 sources) Start: 07-24-2017 End: 03-04-2019 take 2 tablets by mouth twice daily Sennosides-Docusate Sodium (Dok Plus) 8.6-50 mg Tablet Discontinued 2 TAB PO Twice daily 40 July 24, 2017 12:00am March 04, 2019 8:10am etodolac 500 mg oral tablet (20 sources) Nonsteroidal Anti-inflammatory Drug Start: 04-08-2024 End: 04-28-2024 take 1 tablet by mouth every twelve hours Etodolac Discontinued 0 .ROUTE .COMPLEX 60 April 08, 2024 1:26pm April 28, 2024 12:43pm TAKE 1 TABLET BY MOUTH EVERY 12 HOURS FOR 30 DAYS Start: 01-25-2024 take 1 tablet by addie th twice daily etodolac 500 mg Tab 500 mg = 1 tab(s), Oral, BID, # 60 tab(s), Refills(s) 0 Start Date: 01/25/24 Status: Ordered Start: 12-31-2023 End: 04-08-2024 etodolac (Lodine) 500 MG tab let Every 12 hours 01/10/2024 Active ibuprofen 800 mg oral tablet (14 sources) Nonsteroidal Anti-inflammatory Drug Start: 03-04-2019 End: [...] Active naproxen sodium 220 mg oral tablet (10 sources) Nonsteroidal Anti-inflammatory Drug Start: 07-02-2017 End: [...] 02, 2017 12:00am July 24, 2017 8:15am [place] 8-Ini-Zqo-Fish Oil (Fi sh Oil) 1,000 mg (120 mg-180 mg) Capsule (5 sources) Start: 07-02-2017 End: 12-27-2023 [place] 5-Auu-Fsy-Fish Oil (Fi sh Oil) 1,000 mg (120 mg-180 mg) Capsule Discontinued 1200 MG PO Daily July 02, 2017 12:00am December 27, 2023 3:30pm Start: 07-02-2017 End: 12-27-2023 [place] 7-Jct-Qne-Fish Oil (Fi sh Oil) 1,000 mg (120 mg-180 mg) Capsule Discontinued 1200 MG PO Daily July 01, 2017 11:00pm December 27, 2023 2:30pm Potassium (20 sources) Start: 04-28-2024 End: 04-28-2024 take 20 [...] 2017 12:00am March 04, 2019 8:10am Potassium 75 MG tablet Potassium Active Potassium Active pravastatin sodium 80 mg oral tablet (6 sources) HMG-CoA Reductase Inhibitor Start: 07-02-2017 End: 12-27-2023 take 80 mg by mouth once daily at bedtime Pravastatin Discontinued 80 MG PO Daily at bedtime July 02, 2017 12:00am December 27, 2023 3:30pm solifenacin succinate 10 mg oral tablet (20 sources) Cholinergic Muscarinic Antagonist Start: 11-28-2022 End: 05-22-2024 take 10 mg by mouth once daily Solifenacin Discontinued 10 MG PO Daily December 27, 2023 1:00am December 31, 2023 11:31am Triamcinolone (18 sources) Corticosteroid Start: 11-01-2019 Start: 11-01-2019 Kenalog -40 mg Oct, 60 mg Start: 08-09-2019 Start: 08-09-2019 Kenalog -40 mg Aug, 40 mg 24 hr trospium chloride 60 mg extended release oral capsule (20 sources) Cholinergic Muscarinic Antagonist Start: 03-04-2019 End: 12-27-2023 take 60 mg by mouth once daily Trospium Discontinued 60 MG PO Daily March 04, 2019 12:00am December 27, 2023 3:30pm trospium (Sanctu ra) 20 MG tablet every 12 (twelve) hours. Active take 1 tablet by addie th every twenty-four hours Trospium Chloride 20 MG 1 tablet at bedt beatriz on an empty stomach Orally Once a day Active Viteyes Complete CAPS (6 sources) Viteyes Complete CAPS TAKE 1 CAPSULE Daily Quantity: 0 Refills: 0 Ordered: 28-Mar-2022 DO Active Problems Active Problems Problem Classification Problem Date Documented Date Episodic/Chronic Abdominal hernia (20 sources) Right inguinal hernia 11-29-2018 Episodic Acquired foot deformities (14 sources) Right foot drop; Translations: [Foot drop, right foot] Onset: 11-12-2024 08-05-2024 Episodic Cataract (20 sources) Bilateral pseudophakia; Translations: [Presence of intraocular lens] Onset: 03-12-2023 03-12-2023 Chronic Coronary atherosclerosis and other heart disease (20 sources) Coronary arteriosclerosis; Translations: [Recurrent coronary arteriosclerosis after percutaneous transluminal coronary angioplasty] Onset: 04-07-2022 Chronic Diabetes mellitus without complication (13 sources) Impaired fasting glucose; Translations: [Impaired fasting [...] Chronic Inflammatory conditions of male genital organs (20 sources) Chronic prostatitis 05-18-2020 Chronic Intracranial injury (2 sources) Concussion injury of body structure; Translations: [Concussion]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 tab(s), Oral, BID hydrochlorothiazide 25 mg, Oral, Daily Klor-Con M20 1 tab, Oral, Daily Lipitor 40 mg Tab 40 mg = 1 tab(s), Oral, Daily losartan 25 mg Tab nitroglycerin 0.4 mg sublingual Tab Tylenol , Oral Vitamin B12 1000 mcg Tab 1,000 mcg = 1 tab(s), Oral, Daily Vitamin C 1000 mg oral tablet 1,000 mg = 1 tab(s), Oral, Daily , Medications (2) Active Scheduled: (1) ceFAZolin + Sodium Chloride 0.9% Minibag 50 mL 2 gram 1 EA, IV Piggyback, Once Continuous: (1) Sodium Chloride 0.9% 1,000 mL 1,000 mL, IV, 15 mL/hr PRN: (0) Problem list: All Problems Anticoagulated / SNOMED CT 641075803 / Confirmed At risk for falls / SNOMED CT 404544655 / Possible BMI 31.0-31.9,adult / SNOMED CT 296042016 / Confirmed BPH with urinary obstruction / SNOMED CT 1127497279 / Confirmed Chronic prostatitis / SNOMED CT 90195729 / Confirmed Dysuria / SNOMED CT 83759807 / Confirmed ED (erectile dysfunction) / SNOMED CT 8260614403 / Confirmed Elevated PSA / SNOMED CT 2769912328 / Confirmed Gross hematuria / SNOMED CT 207462381 / Confirmed Hernia, inguinal, right / SNOMED CT 082598464 / Confirmed Hypercholesterolemia / SNOMED CT 45008521 / Confirmed Impotence / SNOMED CT 7389354691 / Confirmed Incomplete bladder emptying / SNOMED CT 372485363 / Confirmed Incontinence without sensory awareness / SNOMED CT 5940407502 / Confirmed Leaking of urine / SNOMED CT 0797038962 / Confirmed Nocturia / SNOMED CT 413022161 / Confirmed Post-void dribbling / SNOMED CT 584481766 / Confirmed Prostate cancer screening / SNOMED CT 223733229 / Confirmed Urge incontinence / SNOMED CT 890994860 / Confirmed Urinary frequency / SNOMED CT 154810852 / Confirmed Urinary incontinence / SNOMED CT 1928318835 / Confirmed Urinary retention / SNOMED CT 556190302 / Confirmed Weak urinary stream / SNOMED CT 549167854 / Confirmed Resolved: Hypertension / SNOMED CT 7465505861 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 Normal [facility] MRSA Screenon 08-14-2024 MRSA DNA TRIPP+probe Ql (Unsp spec) Microbiology PROCEDURE: MRSA Screen [R1] SOURCE: Nasal BODY SITE: COLLECTED DATE/TIME: 08/12/2024 10:00 EDT RECEIVED DATE/TIME: 08/12/2024 11:08 EDT START DATE/TIME: 08/12/2024 11:08 EDT FREE TEXT SOURCE: Bert Huang DO, DO, Bradford A. FINAL REPORTS Final Report [] Verified Date/Time: 08/14/2024 10:10 EDT MRSA Negative. Performing Locations R1: This test was performed at: [facility], [address] [place] [address], [facility] , , [facility] Comment on above: Performed By: #### [id number] #### [facility] [address] [place] [address] Main OR Intraoperative Recor don 06-24-2024 Main OR Intraoperative Record Main OR Intraoperative Record IntraOp Document Type FTPM Summary Primary Physician: Bert Huang DO Finalized Date/Time: 06/24/24 09:11:34 Pt. Name: RIDGE ROLAND/Sex: 1945 Male Med Rec #: [id number] Physician: Bert Huang DO Financial #: [id number] Pt. Type: P Room/Bed: / Admit/Disch: 06/24/24 06:57:10 - Institution: Case Times FTPM Entry 1 Patient Times In Room 06/24/24 08:04:00 Out Room 06/24/24 09:10:00 Procedure Times Start 06/24/24 08:14:00 Stop 06/24/24 09:06:00 Anesthesia Times Start 06/24/24 08:04:00 Stop 06/24/24 09:10:00 Last Modified By: Tomasa Kelly RN 06/24/24 09:11:28 Case Attendance FTPM Entry 1 Entry 2 Entry 3 Case Attendee Liliana Alcala CRNA, DO, Bradford A. Roderick RN, Kayla J Role Performed Anesthesiologist Surgeon - Primary Oyster Planter - Primary Doctor Of Naprapathy Time In 06/24/24 08:04:00 06/24/24 08:04:00 06/24/24 08:04:00 Time Out 06/24/24 09:10:00 06/24/24 09:10:00 06/24/24 09:10:00 Procedure SPINAL CORD STIMULATOR SPINAL CORD STIMULATOR SPINAL CORD STIMULATOR TRIAL(.) TRIAL(.) TRIAL(.) Comments Last Modified By: Robin RN, Tomasa Kelly RN, Tomasa Kelly RN, Tomasa Davidson 06/24/24 09:11:29 06/24/24 09:11:29 06/24/24 09:11:29 Entry 4 Entry 5 Entry 6 Case Attendee Gerry JENNINGS, Savannah Escalera Jr DO, Gokul Shafer RT(R), Adry Role Performed Scrub - Primary Anesthesiologist of Yield Analyst Record Time In 06/24/24 08:04:00 06/24/24 08:04:00 06/24/24 08:04:00 Time Out 06/24/24 09:10:00 06/24/24 09:10:00 06/24/24 09:10:00 Procedure SPINAL CORD STIMULATOR SPINAL CORD STIMULATOR SPINAL CORD STIMULATOR TRIAL(.) TRIAL(.) TRIAL(.) Comments Last Modified By: Robin JENNINGS, Tomasa Kelly RN, Tomasa Kelly RN, Tomasa Davidson 06/24/24 09:11:29 06/24/24 09:11:29 06/24/24 09:11:29 Entry 7 Case Attendee Iris Sheffield Role Performed Yield Analyst Time In 06/24/24 08:04:00 Time Out 06/24/24 09:10:00 Procedure SPINAL CORD STIMULATOR TRIAL(.) Comments Last Modified By: Tomasa Kelly RN 06/24/24 09:11:29 General Comments: [employer] Lucretia Peterson Perioperative Protocols FTPM Pre-Care Text: Implements protective measures prior to operative or invasive procedure, confirms identity before the operative or invasive procedure, verifies operative procedure, surgical site, and laterality Entry 1 Procedure(s) SPINAL CORD STIMULATOR Patient Identity Birthday, ID Band TRIAL(.) Verified (select at Check, Patient least 2): Participation Consents / H and P Anesthesia Consent, Operative Site Present Verified H&P, Surgery/Procedure Marking Verified Consent Surgical Site Yes Laterality Verified Yes Verified Procedure Verified Yes Correct Patient Yes Position Verified Availability Equipment, Medication, Prep Dry Yes Verified (If X-ray Applicable) PreOp Antibiotic Yes Time Out Jw Lang DO, Gokul Ceballos, Given Participants Robin JENNINGS, Gerry Harvey RN, Jerry Roldan DO, Bradford A., Iris Sheffield Christman RT(R), Adry Time Out Complete 06/24/24 08:12:00 Outcomes Met? Yes Last Modified By: Tomasa Kelly RN 06/24/24 08:16:39 Post-Care Text: The patient is free from signs and symptoms of injury caused by extraneous objects Allergy Information FTPM Pre-Care Text: Verifies allergies Entry 1 Allergies Reviewed? Yes Allergies Reviewed Self/Patient With Outcomes Met? Yes Last Modified By: Tomasa Kelly RN 06/24/24 07:37:34 Post-Care Text: The patient received appropriate medication(s) safely administered during the perioperative period Surgical Procedures FTPM Entry 1 Procedure Description Procedure SPINAL CORD STIMULATOR Modifiers . TRIAL Surgeon Description [facility]CS TRIAL Primary Procedure Yes Primary Surgeon Bert Huang DO Start 06/24/24 08:14:00 Stop 06/24/24 09:06:00 Anesthesia Type MAC Surgical Service Pain Management Wound Class 1 - Clean Last Modified By: Tomasa Kelly RN 06/24/24 09:11:31 General Case Data FTPM Pre-Care Text: Classifies surgical wound, implements aseptic technique, initiates traffic control Entry 1 Case Information OR Pain Proc Room Case Level Level 2 Wound Class 1 - Clean Specialty Pain Management ASA Class 3 Preop Diagnosis M96.1, G89.29 Postop Same As Preop Yes Postop Diagnosis M96.1, G89.29 Outcomes Met? Yes Last Modified By: Tomasa Kelly RN 06/24/24 08:17:12 Post-Care Text: The patient is free from signs and symptoms of infection Skin Assessment (Pre Procedure) FTPM Pre-Care Text: Implements protective measures to prevent skin/ tissue injury due to thermal or mechanical sources Evaluates for signs and symptoms of physical injury to skin and tissue Entry 1 Skin Integrity Intact, [place], Warm, & Skin Abnormality No Dry Outcomes Met? Yes Last Modified By: Tomasa Kelly RN 06/24/24 07:37:40 Post-Care Text: The patient is free from (more content not included)... Normal [facility] Main OR Preoperative Recordo n 06-24-2024 Main OR Preoperative Record Main OR Preoperative Record Holding Area Document Type FTPM Summary Primary Physician: Bert Huang DO Finalized Date/Time: 06/24/24 07:19:15 Pt. Name: RIDGE ROLAND [place]/Sex: 1945 Male Med Rec #: [id number] Physician: Bert Huang DO Financial #: [id number] Pt. Type: Room/Bed: / Admit/Disch: 06/24/24 06:57:10 - Institution: Case Times Holding FTPM Pre-Care Text: Verifies consent for planned procedure, identifies individual values and wishes concerning care, includes family members in perioperative teaching Secures patient's records' belongings, and valuables, maintains patient's dignity and privacy, and maintains patient confidentiality Entry 1 In Holding 06/24/24 07:13:00 Outcomes Met? Yes Last Modified By: Ramírez Samaniego RN 06/24/24 07:13:45 Post-Care Text: The patient participates in decisions affecting his or her perioperative plan of care The patient's right to privacy is maintained Surgery Checklist FTPM Entry 1 Patient Birthday, ID Band Procedure History and Physical, Identification: Check, Patient Verification: Surgical Consent, With Participation Patient NPO after Midnight: Yes Date/Time: 06/24/24 07:16:00 Results Reviewed na Personal Items: Cataract Lens Implant, Comments: Glasses Personal Items Bilateral cataract Complaints of Pain: Yes Comment: implant, glasses, Pain Comment: 06/14 middle to lower Operative Site Yes back Marking: Marked By: Dr huang Location: [facility] Trial Availability Equipment, X-Ray Verified: Does Patient Smoke No Patient states Yes Comment - Adult Gyle postop adult Supervision supervision available Case Cancelled in No Holding Area see comments below for reason Last Modified By: Ramírez Samaniego RN 06/24/24 07:19:12 Finalized By: Ramírez Samaniego RN Document Signatures Signed By: Ramírez Samaniego RN 06/24/24 07:19 Normal [facility] Operative Reporton 4 Operative Report Operative Report Diagnosis: Lumbar postlaminectomy pain syndrome, M96.1. Chronic pain syndrome G89.29. Procedure: Spinal cord stimulator trial under fluoroscopic guidance with two 16 contact Infinion leads from [employer] and 2 click anchors, [id number]. Analyze neurostimulator complex, 93988. Anesthesia: MAC Complications: None Description: After informed consent was obtained, antibiotics were administered including 2 g of cefazolin. The patient was then brought to the procedure area and placed in the prone position. Patient was placed on the monitors then monitored with anesthesia. A timeout was then performed indicating the appropriate procedure and patient. Next, the patient was prepped using a ChloraPrep solution and sterile drapes were applied, sterile gowns and gloves were utilized throughout the whole case. The needle trajectory overlying the T12/L1 interlaminar space was anesthetized with 2% lidocaine with epi, a Touhy needle was then advanced into the epidural space with confirmation using glass [id number] syringe and lead was threaded at T12/L1. Next, the T12-L1 interspace was accessed a sceond time, with appropriate posterior positioning of each lead. 2 Touhy needles were advanced into this location. Next, each 16 contact lead was advanced to the base of T6 vertebrae. Testing revealed appropriate coverage of both the low back and bilateral lower extremities. Multiple modalities were utilized to achieve appropriate coverage during analysis of the neurostimulator and complex programming, this includes lead trolling, adjustment of the lead position, and further adjustments as needed to achieve adequate coverage in this patient. Next, both Touhy needles were removed, click anchors were then utilized to suture both leads in place and this was covered with a Telfa dressing covered and antibiotic impregnated petroleum jelly. A Tegaderm was then placed to cover the area. The patient was then transported the recovery area in stable condition without apparent complication. Follow-up: We will plan to see the patient within 1 week or sooner if any issues arise, the patient agreed to adhere to the prescribed plan regarding her spinal cord stimulator trial. Normal [facility] Comment on above: Result Comment: Elec tronically Signed By: Bert Huang DO.amy\Date and Time Signed: 08/20/24 09:14 EDT MRSA Screenon 06-19-2024 MRSA DNA TRIPP+probe Ql (Unsp spec) Microbiology PROCEDURE: MRSA Screen [R1] SOURCE: Nasal BODY SITE: COLLECTED DATE/TIME: 06/17/2024 12:25 EDT RECEIVED DATE/TIME: 06/17/2024 12:28 EDT START DATE/TIME: 06/17/2024 12:28 EDT FREE TEXT SOURCE: Bert Huang DO, DO, Bradford A. FINAL REPORTS Final Report [] Verified Date/Time: 06/19/2024 09:27 EDT MRSA Negative. Performing Locations R1: This test was performed at: [facility], [address] [place] [address], [address] [place] [address], 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 sensory awareness Incomplete bladder emptying BPH with urinary obstruction ED (erectile dysfunction) Nocturia Your Care Team Attending Physician - ALANIS WOOD PA-C Primary Care Physician - RAFAEL REYNA, DEVANG This Is Your Medications List Contact prescribing physician if questions or concerns allopurinol (allopurinol 100 mg Tab) amitriptyline (amitriptyline 25 mg Tab) amlodipine ascorbic acid (Vitamin C 1000 mg oral tablet) aspirin (aspirin 81 mg oral tablet) atorvastatin (Lipitor 40 mg Tab) calcium-vitamin D (Calcium 600+D oral tablet) cyanocobalamin (Vitamin B12 1000 mcg Tab) etodolac (etodolac 500 mg Tab) hydrochlorothiazide losartan (losartan 25 mg Tab) nitroglycerin (nitroglycerin 0.4 mg sublingual Tab) potassium chloride (Klor-Con M20) sildenafil (Viagra 50 mg Tab) Procedures Performed Injection of sacroiliac joint using fluoroscopic guidance (01/09/2024), Radiofrequency ablation of nerve root of lumbar spine using fluoroscopic guidance (10/08/2023), Injection of facet joint using fluoroscopic guidance (09/04/2023), Injection of facet joint using fluoroscopic guidance (08/07/2023), Caudal epidural (05/29/2023), Injection of facet joint using fluoroscopic guidance (05/01/2023), Injection of facet joint using fluoroscopic guidance (03/12/2023), Injection of therapeutic substance into bladder wall [...] extraction, Release of trigger finger. Discharge Vitals Height 193 cm Height 76 in Weight 107 kg Weight 235.4 lb BMI 28.73 What to do next Scheduled Follow-Up Appointments Sunday 11:30 AM EDT With: Bert Huang DO Where: [facility] Sunday 8:00 AM EDT With: Where: [facility] Sunday 8:45 AM EDT With: Stephenie Barrios PA-C Where: [facility] You Need to Schedule the Following Appointments Follow Up with ALANIS WOOD PA-C, URL When: Comments: PRN Where: [address] [place] [address] Medications What How Much When Instructions Unchanged allopurinol (allopurinol 100 mg Tab) 1 Tablets By Mouth Every day Contact prescribing physician if questions or concerns Unchanged amitriptyline (amitriptyline 25 mg Tab) 1 Tablets By Mouth Once a day (at bedtime) Duration: 30 Days Contact prescribing physician if questions or concerns Unchanged amlodipine 10 Milligram By Mouth Every day Contact prescribing physician if questions or concerns Unchanged ascorbic acid (Vitamin C 1000 mg oral tablet) 1 Tablets By Mouth Every day Contact prescribing physician if questions or concerns Unchanged aspirin (aspirin 81 mg oral tablet) 1 Tablets By Mouth Every day Contact prescribing physician if questions or concerns Unchanged atorvastatin (Lipitor 40 mg Tab) 1 Tablets By Mouth Every day Contact prescribing physician if questions or concerns Unchanged calcium-vitamin D (Calcium 600+D oral tablet) 1 Tablets By Mouth Every day Contact prescribing physician if questions or concerns Unchanged cyanocobalamin (Vitamin B12 1000 mcg Tab) 1 Tablets By Mouth Every day Contact prescribing physician if questions or concerns Unchanged etodolac (etodolac 500 mg Tab) 1 Tablets By Mouth 2 times a day Contact prescribing physician if questions or concerns Unchanged hydrochlorothiazide 25 Milligram By Mouth Every day Contact prescribing physician if questions or concerns Unchanged losartan (losartan 25 mg Tab) Contact prescribing physician if questions or concerns Unchanged nitroglycerin (nitroglycerin 0.4 mg sublingual Tab) PLACE 1 TABLET (0.4 MG) UNDER THE TONGUE EVERY 5 MINUTES NEEDED FOR CHEST PAIN Contact prescribing physician if questions or concerns Unchanged potassium chloride (Klor-Con M20) 1 tab By Mouth Every day Contact prescribing physician if questions or concerns Unchanged sildenafil (Viagra 50 mg Tab) See instructions 1-2 tab(s) po 1 hr before sexual acitivity. do not exceed 2 tabs in 24 hrs. Contact prescribing physician if questions or concerns Allergies Cymbalta (Hallucinations) oxyCODONE (Visual hallucinations) oxybutynin (Hallucinations) Problems Ongoing - Any p (more content not included)... Normal [facility] Urology Office/Clinic Noteon 06-12-2024 Urology Office/Clinic Note Urology Office/Clinic Note Chief Complaint Incontinence HPI Staff Pt last seen in our office by PRW for Repeat Botox Consult. (S/P Botox 2021 by DLS) Dx: incontinence wo sensory awareness, BPH with urinary obstruction, SU, ED. *Viagra 100mg prn. Was to try incontinence clamp and stop Solifenacin 10mg qd at prior OV. Per last encounter PRW attributed incontinence to nerve damage & loss of sensation in bladder. Denies pain/burning and visible blood in urine. Increased urgency and frequency since last encounter. Getting up several times a night to void. (Has a record with him) Does wear a pad during the day. Changes at least 4x/day. History of Present Illness Tests reviewed: reviewed UA I have reviewed the previous health record information and history for this patient from [facility] & Dr. Xavier. I have reviewed and verified the staff HPI to be accurate for this encounter. Review of Systems PHQ Score Initial Depression Screen Score: 0 SCORE no fever, chills, malaise, myalgia. no rash/lesions. no chest pain, palpitations, or SOB. no abdominal pain, nausea, vomiting. no unilateral calf swelling, redness, pain Physical Exam Vitals & Measurements HT: 76 in HT: 193 cm WT: 107 kg WT: 235.4 lb BMI: 28.73 General: nontoxic, NAD Mouth: moist mucosa Lungs: normal respiratory effort Cardio: regular rate, good distal perfusion Abdomen: nondistended, no suprapubic distention or tenderness, no CVA tenderness Neurologic: Grossly normal Skin: No rashes or suspicious lesions Assessment/Plan saw DLS [id number] 1. Incontinence without sensory awareness (N39.42: Incontinence without sensory awareness) S/p Botox 100u 05/11/22 by DLS. Was doing well with Botox + Myrbetriq at f/u w DLS. Switched to Trospium due to cost of Myrbetriq Aug 2022. Switched to Vesicare Nov 2022 to see if it would be more efficacious. Pleased w urinary habits at f/u Jan 2023 (Botox + Vesicare 10mg). Saw PRW (first time) Dec 2023 c/o worsening incontinence x 6 mos. Per PRW: States he leaks when he stands up [...] Pt would like to proceed with clamp. [1] TODAY: Pt d/c'd Solifenacin at last OV. Pt states he tried incontinence clamp but does not recall any improvement and stated its not for me. Discussed next steps for pt per PRW would be AUS vs SNM. Pt disagrees, says he was really pleased on Botox + medication but once the Botox wore off is when the issues started. Wants to try Botox again + meds. I explained this is not consistent with PRW's treatment plan. Pt reports he did not feel he was a good fit with PRW and is requesting to see another MD for a second opinion. I did explain our typical 'no switching' office policy. Pt acknowledges but states since he was seeing DLS for a decade and only saw PRW once, he's wondering if they'll make an exception. Pt reports if not, he plans to transfer care elsewhere. -discuss w PRW/KML and advise pt. Ordered: E&M of Est. Patient Moderate 30-39 Min 95424 Urnls Dip Stick Auto w/o Microscopy POC 04067 2. Incomplete bladder emptying (R39.14: Feeling of incomplete bladder emptying) PVR (cc): 12/27/21 - 94 05/30/22 - 225 (after botox) 08/31/22 - 56 12/14/23 - 25 (random scan) *no scan at visit today-no bladder scanner IO* Ordered: E&M of Est. Patient Moderate 30-39 Min 21706 Urnls Dip Stick Auto w/o Microscopy POC 60511 3. BPH with urinary obstruction (N40.1: Benign prostatic hyperplasia with lower urinary tract symptoms) S/P TURP 04/28/20 by NIKOLAS S/p Cysto w/ UD 12/05/21 and 12/02/20 by NIKOLAS. IPSS 28 (severe sxs). Not currently taking any BPH medications. UA today shows trace-intact blood, negative for nitrites and leuks. see #1. Ordered: E&M of Est. Patient Moderate 30-39 Min 40352 Urnls Dip Stick Auto w/o Microscopy POC 92043 4. ED (erectile dysfunction) (N52.9: Male erectile dysfunction, unspecified) Pt has been taking Sildenafil 100 mg PRN. This is effective and pt is satisfied with results. Pt reports no intolerable side effects. Pt wishes to: continue current dosing with no changes. Pt does need refills at this time. However, after pt left office, I realized he has Nitro listed now on his med list. This is NEW. Looks like Dr Connors started it a few wee (more content not included)... Normal [facility] Comment on above: Result Comment: Elec tronically Signed By: ALANIS WOOD PA-C\.br\Date and Time Signed: 06/12/24 11:06 EDT\.br\Electronically Co-Signed By: Radha Ohara\.br\Date and Time Co-Signed: 06/12/24 10:32 EDT Cholesterol in LDL Calc [Mas s/Vol]on 04-29-2024 Cholesterol in LDL [Mass/Vol] 59.0 mg/dL [facility] Comment on above: <100 mg/dl [id number] 0-129 mg/dl NEAR OR ABOVE [id number] mg/dl BORDERLINE [id number] mg/dl HIGH>190 mg/dl VERY HIGH Cholesterol in VLDL Calc [Ma ss/Vol]on 04-29-2024 Cholesterol in VLDL [Mass/Vol] 11.4 mg/dL [facility] Estimated glomerular filtrat ion rate (GFR) non- Americanon 04-29-2024 GFR/1.73 sq M.predicted among non-blacks MDRD (S/P/Bld) [Vol rate/Area] mL/min/{1.73_m2} >=60 [facility] Globulin Calc (S) [Mass/Vol] on 04-29-2024 Globulin (S) [Mass/Vol] 3.4 g/dL [facility] Laboratory - Chemistry and C hemistry - challengeon 04-29-2024 Albumin [Mass/Vol] 3.8 g/dL 3.4-5.0 [facility] ALP [Catalytic activity/Vol] 89 U/L 46-116 [facility] ALT [Catalytic activity/Vol] 24 U/L 16-63 [facility] AST [Catalytic activity/Vol] 14 U/L Low 15-37 [facility] Bilirubin [Mass/Vol] 0.9 mg/dL 0.2-1.0 [facility] Calcium [Mass/Vol] 9.5 mg/dL 8.5-10.1 [facility] Chloride [Moles/Vol] 99 mmol/L 98-107 [facility] Cholesterol [Mass/Vol] 138 mg/dL <=200 [facility] Cholesterol in HDL [Mass/Vol] 68 mg/dL High 40-60 [facility] Comment on above: > or =60 mg/dl - LOW CARDIOVASCULAR RISK<40 mg/dl - HIGH CARDIOVASCULAR RISK CO2 [Moles/Vol] 27.8 mmol/L 21.0-32.0 [facility] Creatinine [Mass/Vol] 0.82 mg/dL 0.70-1.30 [facility] GFR/1.73 sq M.predicted MDRD (S/P/Bld) [Vol rate/Area] mL/min/{1.73_m2} >=60 [facility] Glucose [Mass/Vol] 109 mg/dL High 74-106 [facility] Potassium [Moles/Vol] 3.8 mmol/L 3.5-5.1 [facility] Protein [Mass/Vol] 7.2 g/dL 6.4-8.2 [facility] Sodium [Moles/Vol] 137 mmol/L 136-145 [facility] Triglyceride [Mass/Vol] 57 mg/dL <=150 [facility] Urea nitrogen [Mass/Vol] 18.0 mg/dL 7.0-18.0 [facility] Urea nitrogen/Creatinine [Mass ratio] 22.0 mg/mg [facility] Serum or plasma albumin/glob ulin mass ratioon 04-29-2024 Albumin/Globulin [Mass ratio] 1.1 {ratio} [facility] Serum or plasma anion gap de terminationon 04-29-2024 Anion gap [Moles/Vol] 14.0 mmol/L [facility] Serum or plasma total choles terol/high density lipoprotein (HDL) cholesterol mass seema 04-29-2024 Cholesterol.total/Ch olesterol in HDL [Mass ratio] 2.0 {ratio} [facility] Comment on above: 3.3 - 4.4 LOW RISK4. 4 - 7.1 AVERAGE RISK7.1 - 11.0 MODERATE RISK>11.0 HIGH RISK Consent for Treatmenton 03-05 Consent for Treatment [id number]#1.00T IFF Normal [facility] Consultation Noteon 03-14-20 Consultation Note Patient: KEILA [...] day(s), # 60 cap(s), Refills(s) 1, Pharmacy: [facility]/pharmacy #[id number], 193, cm, 01/25/24 13:38:00 EDT, Height/Length Dosing, 102.4, kg, 01/25/24 13:38:00 EDT, Weight Dosing Viagra 50 mg Tab: See Instructions, 1-2 tab(s) po 1 hr before sexual acitivity. do not exceed 2 tabs in 24 hrs., # 15 tab(s), Refills(s) 3, [id number] 193, cm, 08/31/22 9:11:00 EDT, Height/Length Dosing, 114.5, kg, 08/31/22 9:11:00 EDT, Weight Dosing... amitriptyline 10 mg Tab: 10 mg = 1 tab(s), Oral, Once a day (at bedtime), X 30 day(s), # 30 tab(s), Refills(s) 1, Pharmacy: [facility]/pharmacy #[id number], 193, cm, 03/14/24 9:55:00 EDT, Height/Length Dosing, 104.5, kg, 03/14/24 9:55:00 EDT, Weight Dosing pregabalin 25 mg Cap: 25 mg = 1 cap(s), Oral, BID, # 60 cap(s), Refills(s) 2, [id number] 193, cm, 11/09/23 11:29:00 EST, Height/Length [...] list: All Problems Hypercholesterolemia / SNOMED CT 03108517 / Confirmed Hernia, inguinal, right / SNOMED CT 690594047 / Confirmed BPH with urinary obstruction / SNOMED CT 1879646541 / Confirmed Elevated PSA / SNOMED CT 8871129179 / Confirmed Impotence / SNOMED CT 7345643998 / Confirmed Urinary frequency / SNOMED CT 485532270 / Confirmed Nocturia / SNOMED CT 218100601 / Confirmed Weak urinary stream / SNOMED CT 797985727 / Confirmed Gross hematuria / SNOMED CT 549636799 / Confirmed Anticoagulated / SNOMED CT 948496018 / Confirmed Urge incontinence / SNOMED CT 697786267 / Confirmed Chronic prostatitis / SNOMED CT 02822559 / Confirmed Dysuria / SNOMED CT 03960473 / Confirmed Urinary retention / SNOMED CT 902618722 / Confirmed BMI 31.0-31.9,adult / SNOMED CT 565159124 / Confirmed Incomplete bladder emptying / SNOMED CT 160672837 / Confirmed Post-void dribbling / SNOMED CT 284625940 / Confirmed Incontinence without sensory awareness / SNOMED CT 0587911680 / Confirmed At risk for falls / SNOMED CT 701065921 / Possible ED (erectile dysfunction) / SNOMED CT 8949913441 / Confirmed Leaking of urine / SNOMED CT 8624193663 / Confirmed Urinary incontinence / SNOMED CT 4080062489 / Confirmed Prostate cancer screening / SNOMED CT 635196534 / Confirmed Resolved: Hypertension / SNOMED CT 1250269691 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 5/5 strength Integumentary: Warm, Dry, [place]. Neurologic: Alert, Oriented. Psy (more content not included)... Normal [facility] Comment on above: Result Comment: Elec tronically Signed By: Stephenie Barrios PA-C\.br\Date and Time Signed: 03/14/24 10:17 EDT Office/Clinic Note-Physician on 03-14-2024 Office/Clinic Note-Physician [id number]#1.00T IFF Normal [facility] Patient Correspondenceon Patient Correspondence [id number]#1.00T IFF Normal [facility] Patient Correspondence [id number]#1.00T IFF Normal [facility] Patient History Officeon Patient History Office [id number]#1.00T IFF Normal [facility] Consent for Treatmenton 01-04 Consent for Treatment [id number]#1.00 TIFF Normal [facility] Consultation Noteon 01-25-20 Consultation Note Patient: KEILA [...] day(s), # 60 cap(s), Refills(s) 1, [id number] 193, cm, 01/25/24 13:38:00 EDT, Height/Length Dosing, 102.4, kg, 01/25/24 13:38:00 EDT, Weight Dosing Viagra 50 mg Tab: See Instructions, 1-2 tab(s) po 1 hr before sexual acitivity. do not exceed 2 tabs in 24 hrs., # 15 tab(s), Refills(s) 3, [id number], 193, cm, 08/31/22 9:11:00 EDT, Height/Length Dosing, 114.5, kg, 08/31/22 9:11:00 EDT, Weight Dosing... pregabalin 25 mg Cap: 25 mg = 1 cap(s), Oral, BID, # 60 cap(s), Refills(s) 2, [id number] 193, cm, 11/09/23 11:29:00 EST, Height/Length [...] list: All Problems Hypercholesterolemia / SNOMED CT 00241115 / Confirmed Hernia, inguinal, right / SNOMED CT 186111837 / Confirmed BPH with urinary obstruction / SNOMED CT 1198220875 / Confirmed Elevated PSA / SNOMED CT 4725762246 / Confirmed Impotence / SNOMED CT 6458596314 / Confirmed Urinary frequency / SNOMED CT 955343715 / Confirmed Nocturia / SNOMED CT 424500105 / Confirmed Weak urinary stream / SNOMED CT 977659837 / Confirmed Gross hematuria / SNOMED CT 794433201 / Confirmed Anticoagulated / SNOMED CT 620283960 / Confirmed Urge incontinence / SNOMED CT 012443892 / Confirmed Chronic prostatitis / SNOMED CT 03346734 / Confirmed Dysuria / SNOMED CT 82833893 / Confirmed Urinary retention / SNOMED CT 930426215 / Confirmed BMI 31.0-31.9,adult / SNOMED CT 905553358 / Confirmed Incomplete bladder emptying / SNOMED CT 164727557 / Confirmed Post-void dribbling / SNOMED CT 688823139 / Confirmed Incontinence without sensory awareness / SNOMED CT 8997650005 / Confirmed At risk for falls / SNOMED CT 011733859 / Possible ED (erectile dysfunction) / SNOMED CT 6551792096 / Confirmed Leaking of urine / SNOMED CT 9959835432 / Confirmed Urinary incontinence / SNOMED CT 7902919442 / Confirmed Prostate cancer screening / SNOMED CT 534088985 / Confirmed Resolved: Hypertension / SNOMED CT 8819353483 Resolved: 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 Objective Vital Signs 01/25/2024 13:26 EDT Peripheral [...] 5/5 stre (more content not included)... Normal [facility] Comment on above: Result Comment: Elec tronically Signed By: Sophie SHIPMAN, Stephenie\.br\Date and Time Signed: 01/25/24 13:48 EDT Office/Clinic Note-Physician on 01-25-2024 Office/Clinic Note-Physician [id number]#1.00 TIFF Normal [facility] Patient Correspondenceon Patient Correspondence [id number]#1.00 TIFF Normal [facility] Patient Correspondence [id number]#1.00 TIFF Normal [facility] Patient Correspondence [id number]#1.00 TIFF Normal [facility] Patient History Officeon Patient History Office [id number]#1.00 TIFF Normal [facility] Consent for Procedure/Surger yon 01-09-2024 Consent for Procedure/Surgery [id number]#1.00T IFF Normal [facility] Consent for Treatmenton Consent for Treatment [id number]#1.00T IFF [facility] Discharge Instructionson Discharge Instructions [id number]#1.00T IFF Normal [facility] IntraOperative Documentson 0 01-09-2024 IntraOperative Documents [id number]#1.00T IFF Normal [facility] Main OR Intraoperative Recor don 01-09-2024 Main OR Intraoperative Record IntraOp Document Type FTPM Summary Primary Physician: Bert Huang DO Finalized Date/Time: 01/09/24 11:31:11 Pt. Name: RIDGE ROLAND [place]/Sex: 1945 Male Med Rec #: [id number] Physician: Bert Huang DO Financial #: [id number] Pt. Type: P Room/Bed: / Admit/Disch: 01/09/24 [...] Tomasa Davidson Role Performed Surgeon - Primary Oyster Planter - Primary Scrub - Primary Time In 01/09/24 11:25:00 01/09/24 11:25:00 01/09/24 11:25:00 Time Out 01/09/24 11:31:00 01/09/24 11:31:00 01/09/24 11:31:00 Procedure SACROILIAC JOINT SACROILIAC JOINT SACROILIAC JOINT INJECTION(Bilateral) INJECTION(Bilateral) INJECTION(Bilateral) Comments Last Modified By: Gerry JENNINGS, Savannah Garrett RN, Savannah Tsai RN 01/09/24 11:31:02 01/09/24 11:31:02 01/09/24 11:31:02 Entry 4 Case Attendee Scott Craig Role Performed Yield Analyst Time In 01/09/24 11:25:00 Time Out [...] and tissue Entry 1 Skin Integrity Intact, [place], Warm, and Skin Abnormality No Dry Outcomes [...] Met? Y (more content not included)... Normal [facility] Main OR Preoperative Recordo n 01-09-2024 Main OR Preoperative Record Holding Area Document Type FTPM Summary Primary Physician: Bert Huang DO Finalized Date/Time: 01/09/24 11:01:07 Pt. Name: RIDGE ROLAND/Sex: 1945 Male Med Rec #: [id number] Physician: Bert Huang DO Financial #: [id number] Pt. Type: P Room/Bed: / Admit/Disch: 01/09/24 [...] By: Anupama Huggins RN 01/09/24 11:01 Normal [facility] Automated epithelial cells c ount in urine sediment (number/area)on 12-24-2023 Epithelial cells Auto (Urine sed) [#/Area] FEW #/LPF NONE/RARE [facility] Automated leukocytes count i n urine sediment (number/area)on 12-24-2023 WBC Auto (Urine sed) [#/Area] NONE SEEN #/HPF 0-2 [facility] Automated urine specific gra vity by refractometryon 12-24-2023 Specific gravity Refractometry automated (U) [Rel density] 1.020 1.005-1.025 [facility] Basophils Auto (Bld) [#/Vol] on 12-24-2023 Basophils (Bld) [#/Vol] 0.0 10 3/uL 0.0-0.1 [facility] Basophils/100 WBC Auto (Bld) on 12-24-2023 Basophils/100 WBC (Bld) 0.4 % 0.2-2.0 [facility] Bilirubin Auto test strip (U ) [Mass/Vol]on 12-24-2023 Bilirubin (U) [Mass/Vol] Negative NEGATIVE [facility] Color Auto (U)on 12-24-2023 Color (U) YELLOW YELLOW [facility] Eosinophils/100 WBC Auto (Bl d)on 12-24-2023 Eosinophils/100 WBC (Bld) 0.9 % 0.9-7.0 [facility] Erythrocyte distribution wid th Auto (RBC) [Ratio]on 12-24-2023 Erythrocyte distribution width (RBC) [Ratio] 13.3 % 11.0-15.0 [facility] Estimated glomerular filtrat ion rate (GFR) non- Americanon 12-24-2023 GFR/1.73 sq M.predicted among non-blacks MDRD (S/P/Bld) [Vol rate/Area] mL/min/{1.73_m2} >=60 [facility] Hematocrit Auto (Bld) [Volum e fraction]on 12-24-2023 Hematocrit (Bld) [Volume fraction] 45.1 % 42.0-54.0 [facility] Hemoglobin [Mass/volume] in Bloodon 12-24-2023 Hemoglobin (Bld) [Mass/Vol] 15.3 g/dL 14.0-18.0 [facility] Ketones Auto test strip (U) [Mass/Vol]on 12-24-2023 Ketones (U) [Mass/Vol] Negative NEGATIVE [facility] Laboratory - Chemistry and C hemistry - challengeon 12-24-2023 Calcium [Mass/Vol] 9.1 mg/dL 8.5-10.1 [facility] Chloride [Moles/Vol] 102 mmol/L 98-107 [facility] CO2 [Moles/Vol] 25.5 mmol/L 21.0-32.0 [facility] Creatinine [Mass/Vol] 0.73 mg/dL 0.70-1.30 [facility] GFR/1.73 sq M.predicted MDRD (S/P/Bld) [Vol rate/Area] mL/min/{1.73_m2} >=60 [facility] Glucose [Mass/Vol] 113 mg/dL 74-106 [facility] Potassium [Moles/Vol] 3.8 mmol/L 3.5-5.1 [facility] Sodium [Moles/Vol] 138 mmol/L 136-145 [facility] Urea nitrogen [Mass/Vol] 13.0 mg/dL 7.0-18.0 [facility] Urea nitrogen/Creatinine [Mass ratio] 17.8 mg/mg [facility] - Hematology and Cell countson 12-24-2023 Immature granulocytes/100 WBC (Bld) 0.6 % 0.0-0.5 [facility] Leukocytes [#/volume] correc yina for nucleated erythrocytes in Blood by Automated counon 12-24-2023 WBC corrected for nucl RBC Auto (Bld) [#/Vol] 9.5 10 3/uL 4.0-11.0 [facility] Lymphocytes Auto (Bld) [#/Vo l]on 12-24-2023 Lymphocytes (Bld) [#/Vol] 1.1 10 3/uL 1.2-3.8 [facility] Lymphocytes/100 WBC Auto (Bl d)on 12-24-2023 Lymphocytes/100 WBC (Bld) 11.5 % 20.5-60.0 [facility] MCH Auto (RBC) [Entitic mass ]on 12-24-2023 MCH (RBC) [Entitic mass] 31.2 pg 25.9-34.0 [facility] MCHC Auto (RBC) [Mass/Vol]on 12-24-2023 MCHC (RBC) [Mass/Vol] 33.9 g/dL 29.9-35.2 [facility] MCV Auto (RBC) [Entitic vol] on 12-24-2023 MCV (RBC) [Entitic vol] 92.0 fL 80.0-94.0 [facility] Monocytes Auto (Bld) [#/Vol] on 12-24-2023 Monocytes (Bld) [#/Vol] 0.7 10 3/uL 0.3-0.8 [facility] Monocytes/100 WBC Auto (Bld) on 12-24-2023 Monocytes/100 WBC (Bld) 7.7 % 1.7-12.0 [facility] Mucus LM Ql (Urine sed)on Mucus Ql (Urine sed) SMALL NONE SEEN [facility] Neutrophils Auto (Bld) [#/Vo l]on 12-24-2023 Neutrophils (Bld) [#/Vol] 7.5 10 3/uL 1.4-6.5 [facility] Neutrophils/100 WBC Auto (Bl d)on 12-24-2023 Neutrophils/100 WBC (Bld) 78.9 % 43.0-75.0 [facility] No Panel Informationon 12-24 Eosinophils # (Auto) 0.1 10 3/uL 0.0-0.7 [facility] Immature Granulocyte # (Auto) 0.06 10 3/uL 0.00-0.03 [facility] Platelet mean volume Auto (B ld) [Entitic vol]on 12-24-2023 Platelet mean volume (Bld) [Entitic vol] 10.7 fL 9.5-13.5 [facility] Platelets Auto (Bld) [#/Vol] on 12-24-2023 Platelets (Bld) [#/Vol] 197 10 3/uL 150-450 [facility] Protein Auto test strip (U) [Mass/Vol]on 12-24-2023 Protein (U) [Mass/Vol] Negative NEG/TRACE [facility] RBC Auto (Bld) [#/Vol]on RBC (Bld) [#/Vol] 4.90 10 6/uL 4.70-6.10 [facility] Serum or plasma anion gap de terminationon 12-24-2023 Anion gap [Moles/Vol] 14.3 mmol/L [facility] Specific gravity Auto test s trip (U) [Rel density]on 12-24-2023 Specific gravity (U) [Rel density] CLEAR CLEAR [facility] Urine bacteria detection by automated methodon 12-24-2023 Bacteria Auto Ql (U) NONE SEEN #/HPF NONE SEEN [facility] Urine glucose measurement by test strip (mass/volume)on 12-24-2023 Glucose Test strip (U) [Mass/Vol] Negative NEGATIVE [facility] Urine hemoglobin detection b y automated test stripon 12-24-2023 Hemoglobin Auto test strip Ql (U) Negative NEGATIVE [facility] Urine nitrite detection by a utomated test stripon 12-24-2023 Nitrite Auto test strip Ql (U) Negative NEGATIVE [facility] Urine sediment leukocyte cou nt by microscopy (number/high power field)on 12-24-2023 WBC LM.HPF (Urine sed) [#/Area] NONE SEEN #/HPF NONE SEEN [facility] Urobilinogen Auto test strip (U) [Mass/Vol]on 12-24-2023 Urobilinogen Qn (U) 0.2 {Kathia'U}/dL 0.2-1.0 [facility] pH Auto test strip (U)on pH (U) 6.5 [pH] 5.0-9.0 [facility] Patient Correspondenceon Patient Correspondence [id number]#1.00T IFF Normal [facility] Insurance Correspondence Off iceon 12-17-2023 Insurance Correspondence Office [id number]#2.00 TIFF Normal [facility] Patient Educationon 12-14-19 Patient Education Urology Urinary [...] stimulation). ? For women, using a medical care evaluation specialist to prevent urine leaks. This is a [...] urine. ? (more content not included)... Normal [facility] Urology Office/Clinic Noteon 12-14-2023 Urology Office/Clinic Note [...] sensory awareness) S/p Botox 100u 05/11/22 by DLS. Failed Oxybutynin, Trospium, Tolterodine, and Myrbetriq. Taking [...] PVR (cc): 12/27/21 - 94 05/30/22 - (after botox) 08/31/22 - 56 12/14/23 - (random scan) No sample provided for UA today. 4. ED (erectile dysfunction) (N52.9: Male erectile dysfunction, unspecified) Viagra 100mg prn. Works well. Follow-up With When Contact Information DUC WALTERS, Homero Marie, URL Only if needed [facility] [address], [place] [address]- [phone] Additional Instructions: Patient Education Urinary Incontinence I, [...] guidance (05/01/ (more content not included)... Normal [facility] Comment on above: Result Comment: Elec tronically Signed By: DUC WALTERS, Homero Marie\.br\Date and Time Signed: 12/14/23 11:03 EST\.br\Electronically Co-Signed By: Lina Perkins\.amy\Date and Time Co-Signed: 12/14/23 11:01 EST Consent for Treatmenton Consent for Treatment [id number]#1.00T IFF Normal [facility] Consultation Noteon 12-10-19 Consultation Note Patient: KEILA [...] day(s), # 30 tab(s), Refills(s) 6, [id number] 193, cm, 05/29/23 8:59:00 EDT, Height/Length Dosing, 108.9, kg, 03/19/23 8:54:00 EDT, Weight Dosing Viagra 50 mg Tab: See Instructions, 1-2 tab(s) po 1 hr before sexual acitivity. do not exceed 2 tabs in 24 hrs., # 15 tab(s), Refills(s) 3, [id number] 193, cm, 08/31/22 9:11:00 EDT, Height/Length Dosing, 114.5, kg, 08/31/22 9:11:00 EDT, Weight Dosing... pregabalin 25 mg Cap: 25 mg = 1 cap(s), Oral, BID, # 60 cap(s), Refills(s) 2, [id number], 193, cm, 11/09/23 11:29:00 EST, Height/Length [...] list: All Problems Hypercholesterolemia / SNOMED CT 44083177 / Confirmed Hernia, inguinal, right / SNOMED CT 697920645 / Confirmed BPH with urinary obstruction / SNOMED CT 4750283529 / Confirmed Elevated PSA / SNOMED CT 3347815553 / Confirmed Impotence / SNOMED CT 3462118174 / Confirmed Urinary frequency / SNOMED CT 384758129 / Confirmed Nocturia / SNOMED CT 118641644 / Confirmed Weak urinary stream / SNOMED CT 627182274 / Confirmed Gross hematuria / SNOMED CT 514124875 / Confirmed Anticoagulated / SNOMED CT 795665871 / Confirmed Urge incontinence / SNOMED CT 143921655 / Confirmed Chronic prostatitis / SNOMED CT 02705214 / Confirmed Dysuria / SNOMED CT 39782805 / Confirmed Urinary retention / SNOMED CT 794516451 / Confirmed BMI 31.0-31.9,adult / SNOMED CT 159790488 / Confirmed Incomplete bladder emptying / SNOMED CT 955461546 / Confirmed Post-void dribbling / SNOMED CT 160231202 / Confirmed Incontinence without sensory awareness / SNOMED CT 4739813899 / Confirmed At risk for falls / SNOMED CT 614049809 / Possible ED (erectile dysfunction) / SNOMED CT 0105298763 / Confirmed Leaking of urine / SNOMED CT 5538105466 / Confirmed Urinary incontinence / SNOMED CT 9351784431 / Confirmed Prostate cancer screening / SNOMED CT 307336328 / Confirmed Resolved: Hypertension / SNOMED CT 0492512782 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 Normal [facility] Comment on above: Result Comment: Elec tronically Signed By: Stephenie Barrios PA-C\.br\Date and Time Signed: 12/10/23 12:53 EST\.br\Electronically Co-Signed By: Bert Huang DO\.br\Date and Time Co-Signed: 12/11/23 09:21 EST Office/Clinic Note-Physician on 12-10-2023 Office/Clinic Note-Physician [id number]#1.00T IFF Normal [facility] Patient Correspondenceon Patient Correspondence [id number]#1.00T IFF Normal [facility] Patient Correspondence [id number]#1.00T IFF Normal [facility] Patient History Officeon Patient History Office [id number]#1.00T IFF Normal [facility] Consent for Treatmenton Consent for Treatment [id number]#1.00 TIFF Normal [facility] Consultation Noteon 11-09-19 Consultation Note Patient: KEILA [...] day(s), # 30 tab(s), Refills(s) 6, [id number] 193, cm, 05/29/23 8:59:00 EDT, Height/Length Dosing, 108.9, kg, 03/19/23 8:54:00 EDT, Weight Dosing Viagra 50 mg Tab: See Instructions, 1-2 tab(s) po 1 hr before sexual acitivity. do not exceed 2 tabs in 24 hrs., # 15 tab(s), Refills(s) 3, [id number] 193, cm, 08/31/22 9:11:00 EDT, Height/Length Dosing, 114.5, kg, 08/31/22 9:11:00 EDT, Weight Dosing... pregabalin 25 mg Cap: 25 mg = 1 cap(s), Oral, BID, # 60 cap(s), Refills(s) 2, [id number] 193, cm, 11/09/23 11:29:00 EST, Height/Length [...] list: All Problems Hypercholesterolemia / SNOMED CT 99076115 / Confirmed Hernia, inguinal, right / SNOMED CT 468664906 / Confirmed BPH with urinary obstruction / SNOMED CT 6411460244 / Confirmed Elevated PSA / SNOMED CT 1162478018 / Confirmed Impotence / SNOMED CT 5422657866 / Confirmed Urinary frequency / SNOMED CT 302453115 / Confirmed Nocturia / SNOMED CT 437367042 / Confirmed Weak urinary stream / SNOMED CT 068665289 / Confirmed Gross hematuria / SNOMED CT 694439533 / Confirmed Anticoagulated / SNOMED CT 889631267 / Confirmed Urge incontinence / SNOMED CT 015986171 / Confirmed Chronic prostatitis / SNOMED CT 94291355 / Confirmed Dysuria / SNOMED CT 37842059 / Confirmed Urinary retention / SNOMED CT 266103421 / Confirmed BMI 31.0-31.9,adult / SNOMED CT 640016256 / Confirmed Incomplete bladder emptying / SNOMED CT 107375133 / Confirmed Post-void dribbling / SNOMED CT 551580159 / Confirmed Incontinence without sensory awareness / SNOMED CT 8309435697 / Confirmed At risk for falls / SNOMED CT 107525323 / Possible ED (erectile dysfunction) / SNOMED CT 3531455094 / Confirmed Leaking of urine / SNOMED CT 5601637841 / Confirmed Urinary incontinence / SNOMED CT 9965138849 / Confirmed Prostate cancer screening / SNOMED CT 350923455 / Confirmed Resolved: Hypertension / SNOMED CT 3995016399 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 Injection sites well-healed Neurologic: Alert, Oriented. Psychiatric: Cooperative, Appropriate mood & affect. Impression and Plan Patient is a 78-year-old male with a past medical history significant for postlaminectomy syndrome, chronic pain, and lumbar spondylosis (more content not included)... Normal [facility] Comment on above: Result Comment: Elec tronically Signed By: Sophie SHIPMAN, Stephenie\.br\Date and Time Signed: 11/09/23 11:45 EST Legal Correspondence Officeo n 11-09-2023 Legal Correspondence Office [id number]#1.00 TIFF Normal [facility] Office/Clinic Note-Physician on 11-09-2023 Office/Clinic Note-Physician [id number]#1.00 TIFF Normal [facility] Patient Correspondenceon Patient Correspondence [id number]#1.00 TIFF Normal [facility] Patient Correspondence [id number]#1.00 TIFF Normal [facility] Patient Correspondence [id number]#1.00 TIFF Normal [facility] Patient Correspondence [id number]#1.00 TIFF Normal [facility] Patient History Officeon Patient History Office [id number]#1.00 TIFF Normal [facility] Consent for Procedure/Surger yon 10-08-2023 Consent for Procedure/Surgery [id number]#1.00 TIFF Normal [facility] Consent for Treatmenton Consent for Treatment [id number]#1.00 TIFF Normal [facility] Discharge Instructionson Discharge Instructions [id number]#1.00 TIFF Normal [facility] IntraOperative Documentson 1 12-09-2022 IntraOperative Documents [id number]#1.00 TIFF Normal [facility] Main OR Intraoperative Recor don 10-08-2023 Main OR Intraoperative Record IntraOp Document Type FTPM Summary Primary Physician: Bib Sanchez MD Finalized Date/Time: 10/08/23 08:08:45 Pt. Name: [place] SandsO.B./Sex: 1945 Male Med Rec #: [id number] Physician: Bib Sanchez MD Financial #: [id number] Pt. Type: P Room/Bed: / Admit/Disch: 10/08/23 [...] Savannah Lin Role Performed Surgeon - Primary Oyster Planter - Primary Scrub - Primary Time In 10/08/23 07:54:00 10/08/23 07:54:00 10/08/23 07:54:00 Time Out 10/08/23 08:09:00 10/08/23 08:09:00 10/08/23 08:09:00 Procedure LUMBAR RADIO FREQUENCY LUMBAR RADIO FREQUENCY LUMBAR RADIO FREQUENCY ABLATION(Bilateral) ABLATION(Bilateral) ABLATION(Bilateral) Comments Last Modified By: Robin JENNINGS, Tomasa Kelly RN, Tomasa Alexander RN 10/08/23 08:08:31 10/08/23 08:08:31 10/08/23 08:08:31 Entry 4 Case Attendee Soni MCNULTY(Frank)Adry Role Performed Yield Analyst Time In 10/08/23 07:54:00 Time Out [...] Applicable) PreOp Antibiotic No Time Out Tomasa Klely RN, Given Participants Gerry JENNINGS, Laura Roldan MD, Joshua D, Christman RT(Frank)Adry Time Out Complete 10/08/23 07:54:00 Outcomes Met? [...] L4/5 RFA Primary Procedure Yes Primary Surgeon Bib Sanchez MD Start 10/08/23 07:57:00 Stop 10/08/23 08:08:00 Anesthesia [...] and tissue Entry 1 Skin Integrity Intact, [place], Warm, and Skin Abnormality No Dry Outcomes [...] By Neto (more content not included)... Normal [facility] Main OR Preoperative Recordo n 10-08-2023 Main OR Preoperative Record Holding Area Document Type FTPM Summary Primary Physician: Bib Sanchez MD Finalized Date/Time: 10/08/23 07:19:53 Pt. Name: RIDGE ROLAND D.O.B./Sex: 1945 Male Med Rec #: [id number] Physician: Bib Sanchez MD Financial #: [id number] Pt. Type: P Room/Bed: / Admit/Disch: 10/08/23 [...] No Patient states Yes Comment - Adult -Ellie postop adult Supervision supervision available Case Cancelled in No Holding Area see comments below for reason Last Modified By: Sneha Beal RN 10/08/23 07:19:52 Finalized By: Sneha Beal RN Document Signatures Signed By: Sneha Beal RN 10/08/23 07:19 Normal [facility] Operative Reporton 3 Operative Report Patient: KEILA ROLAND Age: 78 years Sex: Male : 1945 Associated Diagnoses: None Author: Bib Sanchez MD Procedure Procedure: Lumbar Facet Medial Branch Radiofrequency [...] side with the identical technique and medications. Hobbs were removed and bandages applied. The patient [...] EST Respiratory Rate 15 br/min . Normal [facility] Comment on above: Result Comment: Elec tronically Signed By: Laura WALTERS, Bib Jackson\.br\Date and Time Signed: 10/08/23 08:08 EST Patient Correspondenceon Patient Correspondence [id number]#1.00T IFF Normal [facility] Insurance Correspondence Off iceon 09-21-2023 Insurance Correspondence Office [id number]#2.[address] [facility] Consent for Treatmenton 09-05 Consent for Treatment [id number]#1.[address] [facility] Consultation Noteon 09-14-20 Consultation Note Patient: [...] day(s), # 30 tab(s), Refills(s) 6, Pharmacy: [facility]/pharmacy #[id number], 193, cm, 05/29/23 8:59:00 EDT, Height/Length Dosing, 108.9, kg, 03/19/23 8:54:00 EDT, Weight Dosing Viagra 50 mg Tab: See Instructions, 1-2 tab(s) po 1 hr before sexual acitivity. do not exceed 2 tabs in 24 hrs., # 15 tab(s), Refills(s) 3, Pharmacy: [facility]/pharmacy #[id number], 193, cm, 08/31/22 9:11:00 EDT, [...] list: All Problems Hypercholesterolemia / SNOMED CT 47814985 / Confirmed Hernia,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 on above: Performed By: #### L IPID #### [facility] [address] [place] [address] [address] Liban Whyte VLDL CALC 10.0 mg/dL Normal [facility] Comment on above: Performed By: #### L IPID #### [facility] [address] [place], [place] [address] Dr. Liban Whyte Office Visit (Cardiology)on 03-28-2022 Follow-up visit Diagnoses/Problems Assessed Arteriosclerosis of coronary artery (414.00) (I25.10) Dyslipidemia (272.4) (E78.5) Essential hypertension (401.9) (I10) Overweight with body mass index (BMI) of 28 to 28.9 in adult (278.02,V85.24) (E66.3,Z68.28) Status post coronary angioplasty (V45.82) (Z98.61) Orders Arteriosclerosis of coronary artery Lipid Panel; Status:Active - Retrospective Authorization; Requested for:[id number]; Arteriosclerosis of coronary artery, Joint pain Start: Meloxicam 15 MG Oral Tablet; TAKE 1 TABLET DAILY Overweight with body mass index (BMI) of 28 to 28.9 in adult Healthy Weight Tips; Status:Complete - Retrospective Authorization; Done: 28Mar2022 Patient Instructions Please bring all medicines, vitamins, [...] Recorded: 28Mar2022 01:43PM Heart Rate88, R Radial Cspnvvho446, RUE, Sitting Vhfntpziq61, RUE, Sitting Height6 ft 4 in Thijyr658 lb BMI Hhuqnffhuh81.48 kg/m2 BSA Calculated2.37 Tobacco Useb) No PHQ-2 [...] MD; M (more content not included)... Normal [facility] [employer] Tobacco Screening.on 022 Adult depression screening assessment No [facility] 250 DO Work Phone: Fall risk assessment b) One or more fall s in the last year [facility] 250 DO Work Phone: Tobacco use status CPHS b) No [facility] 250 DO Work Phone: CNOVon 04-19-2021 CNOV Office Visit (NEURAV ) RIDGE ROLAND ([id number]) 1945 M Date Time Provider Department 04/19/21 [...] He had a second opinion with Dr. Quezada(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 He established with [...] EMG and LP results. Repeat EMG in [facility] (Apr 2020) showed moderate sensorimotor polyneuropathy [...] loss of consciousness, he was brought to [facility] needing stitches. CT c- spine showed degenerative [...] as he can do more at the [facility]. They are planning to go back to the [facility]. Current Outpatient Medications Medication Sig Dispense [...] hearing C (more content not included)... Normal [facility] LUMBAR SPINE 2 OR 3 VIEWSon 08-25-2020 LUMBAR SPINE 2 OR 3 VIEWS STUDY: LUMBAR SPINE 2 OR 3 VIEWS; ; 08/25/2020 8:28 am INDICATION: PAIN. COMPARISON: None. ACCESSION NUMBER(S): [id number] ORDERING CLINICIAN: Haseeb Arcos FINDINGS: No acute fracture dislocation. 5 lumbar vertebral bodies are identified. Status post the decompression laminectomy at L4 and L5 level. Moderate facet arthropathy at L4-L5 and L5-S1 resulting in ltsm-tw-fqgbzqid neural foraminal stenosis. The vertebral alignment is normal. The vertebral body heights are maintained. Mild decrease in intervertebral disc space at all levels. Nonspecific bowel gas pattern. Atherosclerotic calcifications of the abdominal aorta. IMPRESSION: Decompression laminectomy at L4 and L5 levels. Moderate facet arthropathy at L4-L5 and L5-S1 levels resulting in dvld-jj-sxuynppp bilateral neural foraminal stenosis. Normal [facility] LUMBAR SPINE 2 OR 3 VIEWSon 10-31-2019 LUMBAR SPINE 2 OR 3 VIEWS STUDY: LUMBAR SPINE 2 OR 3 VIEWS;; 10/31/2019 10:43 am INDICATION: PAIN. COMPARISON: None. ACCESSION NUMBER(S): [id number] ORDERING CLINICIAN: Haseeb Arcos FINDINGS: No acute [...] facet arthropathy at L3-L4 through L5-S1. Normal [facility] Basic Metabolic Panel Reflex Mgon 04-12-2018 Anion gap 13 mmol/L Normal 7-13 [facility] Calcium 8.5 mg/dL Low 8.6-10.2 [facility] Chloride 95 mmol/L Low 98-107 [facility] CO2 25 mmol/L Normal 22-29 [facility] Creatinine 0.76 mg/dL Normal 0.70-1.20 [facility] eGFR (black) mL/min/{1.73_m2} Normal >60 [facility] Comment on above: Result Comment: >60 mL/min/1.73m2 EGFR, calc. for ages 18 and older using theMDRD formula (not corrected for weight), is valid for stablerenal function. eGFR (MDRD) mL/min/{1.73_m2} Normal >60 [facility] Comment on above: Result Comment: >60 mL/min/1.73m2 EGFR, calc. for ages 18 and older using theMDRD formula (not corrected for weight), is valid for stablerenal function. Glucose mass conc 173 mg/dL Critically high 74-109 [facility] Potassium molar conc 3.7 mmol/L Normal 3.5-5.1 [facility] Sodium 133 mmol/L Normal 132-144 [facility] Urea nitrogen 13 mg/dL Normal 8-23 [facility] CBC With Platelet and Differ entialon 04-12-2018 Basophils Auto #/vol (Bld) 0.0 10*3/uL Normal 0.0-0.2 [facility] Basophils/100 WBC Auto (Bld) 0.1 % Normal [facility] Eosinophils 0.0 10*3/uL Normal 0.0-0.7 [facility] Eosinophils/100 leukocytes 0.0 % Normal [facility] Erythrocyte distribution width Auto Ratio (RBC) 13.7 % Normal 11.5-14.5 [facility] Erythrocytes (RBC) 4.62 10*6/uL Low 4.70-6.10 [facility] Hematocrit (HCT) 42.3 % Normal 42.0-52.0 [facility] Hemoglobin mass conc (Bld) 14.1 g/dL Normal 14.0-18.0 [facility] Lymphocytes 0.8 10*3/uL Low 1.0-4.8 [facility] Lymphocytes/100 leukocytes 4.8 % Normal [facility] MCH 30.4 pg Normal 27.0-31.3 [facility] MCHC mass conc (RBC) 33.2 % Normal 33.0-37.0 [facility] MCV 91.6 fL Normal 80.0-100.0 [facility] Monocytes 0.9 10*3/uL Critically high 0.2-0.8 [facility] Monocytes/100 leukocytes 5.4 % Normal [facility] Neutrophils 14.6 10*3/uL Critically high 1.4-6.5 [facility] Neutrophils/100 leukocytes 89.7 % Normal [facility] Platelets 194 10*3/uL Normal 130-400 [facility] WBC (Leukocytes) 16.2 10*3/uL Critically high 4.8-10.8 [facility] XR LUMBAR SPINE (2-3 VIEWS)o n [...] by:NATALIA Bravoigned by:Nicky Snow MD04/12/18Final result Normal [facility] Basic Metabolic Panel Reflex Mgon 04-11-2018 Anion gap 14 mmol/L Critically high 7-13 [facility] Calcium 9.5 mg/dL Normal 8.6-10.2 [facility] Chloride 100 mmol/L Normal 98-107 [facility] CO2 25 mmol/L Normal 22-29 [facility] Creatinine 0.85 mg/dL Normal 0.70-1.20 [facility] eGFR (black) mL/min/{1.73_m2} Normal >60 [facility] Comment on above: Result Comment: >60 mL/min/1.73m2 EGFR, calc. for ages 18 and older using theMDRD formula (not corrected for weight), is valid for stablerenal function. eGFR (MDRD) mL/min/{1.73_m2} Normal >60 [facility] Comment on above: Result Comment: >60 mL/min/1.73m2 EGFR, calc. for ages 18 and older using theMDRD formula (not corrected for weight), is valid for stablerenal function. Glucose mass conc 154 mg/dL Critically high 74-109 [facility] Potassium molar conc 3.9 mmol/L Normal 3.5-5.1 [facility] Sodium 139 mmol/L Normal 132-144 [facility] Urea nitrogen 15 mg/dL Normal 8-23 [facility] CBC With Platelet No Differe ntialon 04-11-2018 Erythrocyte distribution width Auto Ratio (RBC) 13.8 % Normal 11.5-14.5 [facility] Erythrocytes (RBC) 5.00 10*6/uL Normal 4.70-6.10 [facility] Hematocrit (HCT) 46.0 % Normal 42.0-52.0 [facility] Hemoglobin mass conc (Bld) 15.4 g/dL Normal 14.0-18.0 [facility] MCH 30.7 pg Normal 27.0-31.3 [facility] MCHC mass conc (RBC) 33.4 % Normal 33.0-37.0 [facility] MCV 92.0 fL Normal 80.0-100.0 [facility] Platelets 192 10*3/uL Normal 130-400 [facility] WBC (Leukocytes) 10.0 10*3/uL Normal 4.8-10.8 [facility] FLUORO FOR SURGICAL PROCEDUR ESon 04-11-2018 [...] Ordoñez's surgical notes for completeness.Interprete d by:NATALIA Gmoesigned by:Kirk Velez MD04/11/18inal result Normal [facility] Surgical Specimenon 04-11-20 18 Surgical Specimen Invalid Interpretation Code [facility] Comment on above: Result Comment: [place] [id number] [phone] SURGICAL PATHOLOGY REPORTPatient Name: RIDGE ROLAND Accession No: [id number] Age Sex: 1945 Location: [address] [id number] No: [id number] Collected: 04/11/2018Med Rec No: [id number] Received: 04/12/2018Attend Phys: ANNMARIE ORDOÑEZ Completed: 04/16/2018Perform Phys: ANNMARIE YOOFINAL DIAGNOSIS:A. DISK-VERTEBRAL [...] cm.Sectioned and submitted entirely, one cassette. ALDWA/SCDANCPT: [id number] [id number] RIVERS M.D. 04/16/2018 Electronically signed out by Page 1 of 1 Basic Metabolic Panelon - Anion gap 15 mmol/L Critically high 7-13 [facility] Calcium 9.4 mg/dL Normal 8.6-10.2 [facility] Chloride 98 mmol/L Normal 98-107 [facility] CO2 28 mmol/L Normal 22-29 [facility] Creatinine 0.70 mg/dL Normal 0.70-1.20 [facility] eGFR (black) mL/min/{1.73_m2} Normal >60 [facility] Comment on above: Result Comment: >60 mL/min/1.73m2 EGFR, calc. for ages 18 and older using theMDRD formula (not corrected for weight), is valid for stablerenal function. eGFR (MDRD) mL/min/{1.73_m2} Normal >60 [facility] Comment on above: Result Comment: >60 mL/min/1.73m2 EGFR, calc. for ages 18 and older using theMDRD formula (not corrected for weight), is valid for stablerenal function. Glucose mass conc 105 mg/dL Normal 74-109 [facility] Potassium molar conc 3.7 mmol/L Normal 3.5-5.1 [facility] Sodium 141 mmol/L Normal 132-144 [facility] Urea nitrogen 14 mg/dL Normal 8-23 [facility] CBC With Platelet No Differe ntialon 04-10-2018 Erythrocyte distribution width Auto Ratio (RBC) 14.2 % Normal 11.5-14.5 [facility] Erythrocytes (RBC) 5.34 10*6/uL Normal 4.70-6.10 [facility] Hematocrit (HCT) 49.2 % Normal 42.0-52.0 [facility] Hemoglobin mass conc (Bld) 16.5 g/dL Normal 14.0-18.0 [facility] MCH 30.9 pg Normal 27.0-31.3 [facility] MCHC mass conc (RBC) 33.6 % Normal 33.0-37.0 [facility] MCV 92.1 fL Normal 80.0-100.0 [facility] Platelets 206 10*3/uL Normal 130-400 [facility] WBC (Leukocytes) 6.8 10*3/uL Normal 4.8-10.8 [facility] Culture, MRSA Screenon 04-10 Culture, MRSA Screen ORDERED BY: JAIME EUCEDACE: Nares Nose COLLECTED: 04/10/18 12:58ANTIBIOTICS AT JULI.: RECEIVED : 04/10/18 12:58Culture, MRSA Screen FINAL 04/11/18 11:22 No MRSA isolated Normal [facility] Prothrombin Timeon 8 INR Coag RelTime (PPP) 1.0 {INR} Normal [facility] Comment on above: Result Comment: Anastacio [...] Coag time (PPP) 10.7 s Normal 9.6-12.3 [facility] Type and Screen Capture 3 sc rn cellaryan 04-10-2018 Bilirubin (total) PATIENT: ASUNCION Coleman LOC: CHOW BILL# : [id number] : 1945 SEX: MORDERED BY: KINSEY Underwood ORDERED : 04/10/2018 11:35 COLLECTED: 04/10/2018 13:00ORDER : [id number] RECEIVED : 04/10/2018 13:00 TEST NAME RESULT UNITS RANGES ABN FL STABORH Capture A POS FAntibody 3 Cell Scrn Captu NEG F --------- Normal [facility] Urinalysis, reflex to cultur aj 04-10-2018 Bilirubin Ql (U) Negative Normal Negative [facility] Urine Reflexed to Culture Not Indicated Normal [facility] Urine, clarity Clear Normal Clear [facility] Urine, color Yellow Normal Straw/Ness [facility] Urine, glucose presence Negative Normal Negative [facility] Urine, hemoglobin presence Negative Normal Negative [facility] Urine, ketones presence Negative Normal Negative [facility] Urine, leukocyte esterase presence Negative Normal Negative [facility] Urine, nitrite presence Negative Normal Negative [facility] Urine, pH 5.5 [pH] Normal 5.0-9.0 [facility] Urine, protein presence Negative Normal Negative [facility] Urine, specific gravity 1.009 Normal 1.005-1.03 [facility] Urine, urobilinogen 0.2 {Kathia'U}/dL Normal < 2.0 [facility] XR SPINE ENTIRE (2-3 VIEWS)o n [...] LORDOSIS IDENTIFIED. Interpreted by:NATALIA Oliverigned by:Devang Scott MD6//inal result Normal [facility] Vital Signs Date Time Vital Sign Value Performing Clinician Facility 09-24-2024 08:51-0500 Diastolic blood pressure 74 mm[Hg] Bert Huang [facility] 09-24-2024 08:51-0500 Heart rate 73 /min Bert Huang [facility] 09-24-2024 08:51-0500 Mean blood pressure 97 mm[Hg] Bert Huang [facility] 09-24-2024 08:51-0500 Respiratory rate 16 /min Bert Huang [facility] 09-24-2024 08:51-0500 Systolic blood pressure 143 mm[Hg] Bert Huang [facility] 08-27-2024 10:58-0400 Diastolic blood pressure 83 mm[Hg] Stephenie Barrios [facility] 08-27-2024 10:58-0400 Heart rate 72 /min Stephenie Barrios [facility] 08-27-2024 10:58-0400 Mean blood pressure 105 mm[Hg] Stephenie Barrios [facility] 08-27-2024 10:58-0400 Respiratory rate 14 /min Stephenie Barrios [facility] 08-27-2024 10:58-0400 Systolic blood pressure 148 mm[Hg] Stephenie Barrios [facility] 08-19-2024 10:24-0400 Heart rate 79 /min Bert Huang [facility] 08-19-2024 10:24-0400 SaO2% (BldA) [Mass fraction] 98 % Bert Huang [facility] 08-19-2024 10:24-0400 Diastolic blood pressure 72 mm[Hg] Bert Huang [facility] 08-19-2024 10:24-0400 Mean blood pressure 93 mm[Hg] Bert Huang [facility] 08-19-2024 10:24-0400 Systolic blood pressure 135 mm[Hg] Bert Huang [facility] 08-19-2024 10:24-0400 Body temperature 97.88 [degF] Bert Huang [facility] 08-19-2024 10:24-0400 Respiratory rate 16 /min Bert Huang [facility] 08-19-2024 10:08-0400 Heart rate 77 /min Bert Huang [facility] 08-19-2024 10:08-0400 SaO2% (BldA) [Mass fraction] 95 % Bert Huang [facility] 08-19-2024 10:08-0400 Respiratory rate 16 /min Bert Huang [facility] 08-19-2024 10:07-0400 Diastolic blood pressure 86 mm[Hg] Noel Jerry [facility] 08-19-2024 10:07-0400 Mean blood pressure 99 mm[Hg] Noel Jerry [facility] 08-19-2024 10:07-0400 Systolic blood pressure 125 mm[Hg] Noel Jerry [facility] 08-19-2024 10:03-0400 Diastolic blood pressure 99 mm[Hg] Noel Jerry [facility] 08-19-2024 10:03-0400 Systolic blood pressure 120 mm[Hg] Bert Huang [facility] 08-19-2024 10:00-0400 Heart rate 83 /min Bert Huang [facility] 08-19-2024 10:00-0400 Respiratory rate 18 /min Noel Jerry [facility] 08-19-2024 10:00-0400 SaO2% (BldA) [Mass fraction] 97 % Bert Huang [facility] 08-19-2024 07:27-0400 Body temperature 97.52 [degF] Bert Huang [facility] 08-19-2024 07:27-0400 Mean blood pressure 100 mm[Hg] Bert Huang [facility] 08-12-2024 09:31-0400 Diastolic blood pressure 73 mm[Hg] Bert Huang [facility] 08-12-2024 09:31-0400 Heart rate 67 /min Bert Huang [facility] 08-12-2024 09:31-0400 Systolic blood pressure 125 mm[Hg] Bert Huang [facility] 07-15-2024 08:47-0400 Body height 193 cm Christopher Philippe DO Work Phone: [facility] 07-15-2024 08:47-0400 Body mass index (BMI) [Ratio] 28.85 kg/m2 Christopher Philippe DO Work Phone: [facility] 07-15-2024 08:47-0400 Body weight 107.5 kg Christopher Philippe DO Work Phone: [facility] [facility] 07-15-2024 08:47-0400 Diastolic blood pressure 82 mm[Hg] Christopher Philippe DO Work Phone: [facility] 07-15-2024 08:47-0400 Heart rate 72 /min Christopher Philippe DO Work Phone: [facility] 07-15-2024 08:47-0400 SaO2% (BldA) [Mass fraction] 98 % Christopher Philippe DO Work Phone: [facility] 07-15-2024 08:47-0400 Systolic blood pressure 126 mm[Hg] Christopher Philippe DO Work Phone: [facility] 07-02-2024 08:52-0400 Diastolic blood pressure 77 mm[Hg] Stephenie Interactivo [facility] 07-02-2024 08:52-0400 Heart rate 67 /min Stephenie Interactivo [facility] 07-02-2024 08:52-0400 Mean blood pressure 94 mm[Hg] Stephenie Interactivo [facility] 07-02-2024 08:52-0400 Respiratory rate 14 /min Stephenie Interactivo [facility] 07-02-2024 08:52-0400 Systolic blood pressure 127 mm[Hg] Stephenie Interactivo [facility] 06-24-2024 09:23-0400 Heart rate 72 /min Bert Huang [facility] 06-24-2024 09:23-0400 SaO2% (BldA) [Mass fraction] 97 % Noel Jerry [facility] 06-24-2024 09:23-0400 Diastolic blood pressure 83 mm[Hg] Noel Jerry [facility] 06-24-2024 09:23-0400 Mean blood pressure 102 mm[Hg] Bert Huang [facility] 06-24-2024 09:23-0400 Systolic blood pressure 139 mm[Hg] Noel Jerry [facility] 06-24-2024 09:23-0400 Body temperature 97.52 [degF] Bert Jerry [facility] 06-24-2024 09:23-0400 Respiratory rate 16 /min Bert Huang [facility] 06-24-2024 09:13-0400 Heart rate 77 /min Noel Jerry [facility] 06-24-2024 09:13-0400 SaO2% (BldA) [Mass fraction] 97 % Bert Huang [facility] 06-24-2024 09:13-0400 Respiratory rate 16 /min Bert Huang [facility] 06-24-2024 09:12-0400 Diastolic blood pressure 71 mm[Hg] Bert Huang [facility] 06-24-2024 09:12-0400 Mean blood pressure 95 mm[Hg] Bert Huang [facility] 06-24-2024 09:12-0400 Systolic blood pressure 144 mm[Hg] Bert Huang [facility] 06-24-2024 09:06-0400 Diastolic blood pressure 71 mm[Hg] Bert Huang [facility] 06-24-2024 09:06-0400 Systolic blood pressure 119 mm[Hg] Bert Huang [facility] 06-24-2024 09:05-0400 Heart rate 75 /min Bert Huang [facility] 06-24-2024 09:05-0400 Respiratory rate 17 /min Bert Huang [facility] 06-24-2024 09:05-0400 SaO2% (BldA) [Mass fraction] 97 % Bert Huang [facility] 06-24-2024 07:22-0400 Mean blood pressure 107 mm[Hg] Bert Huang [facility] 06-24-2024 07:21-0400 Body temperature 98.06 [degF] Bert Huang [facility] 06-17-2024 08:17-0400 Diastolic blood pressure 77 mm[Hg] Bert Huang [facility] 06-17-2024 08:17-0400 Heart rate 77 /min Bert Huang [facility] 06-17-2024 08:17-0400 Systolic blood pressure 126 mm[Hg] Bert Huang [facility] 06-13-2024 08:59-0400 Body temperature 97.4 [degF] [facility] 06-13-2024 08:59-0400 Body weight 106.59 kg [facility] 06-13-2024 08:59-0400 Diastolic blood pressure 70 mm[Hg] [facility] 06-13-2024 08:59-0400 Heart rate 74 /min [facility] 06-13-2024 08:59-0400 SaO2% (BldA) [Mass fraction] 97 % [facility] 06-13-2024 08:59-0400 Systolic blood pressure 124 mm[Hg] [facility] 05-22-2024 09:56-0400 Body height 182.9 cm Marisol Connors MD Work Phone: [facility] 05-22-2024 09:56-0400 Body mass index (BMI) [Ratio] 31.46 kg/m2 Marisol Connors MD Work Phone: [facility] 05-22-2024 09:56-0400 Body weight 105.23 kg Marisol Connors MD Work Phone: [facility] 05-22-2024 09:56-0400 Diastolic blood pressure 72 mm[Hg] Marisol Connors MD Work Phone: [facility] 05-22-2024 09:56-0400 Heart rate 68 /min Marisol Connors MD Work Phone: [facility] 05-22-2024 09:56-0400 Systolic blood pressure 120 mm[Hg] Marisol Connors MD Work Phone: [facility] 05-07-2024 14:31-0400 Body height 193.04 cm [facility] 05-07-2024 14:31-0400 Body mass index (BMI) [Ratio] 28.4 kg/m2 [facility] 05-07-2024 14:31-0400 Body weight 105.85 kg [facility] 05-07-2024 14:31-0400 Diastolic blood pressure 79 mm[Hg] [facility] 05-07-2024 14:31-0400 Heart rate 78 /min [facility] 05-07-2024 14:31-0400 Respiratory rate 16 /min [facility] 05-07-2024 14:31-0400 Systolic blood pressure 151 mm[Hg] [facility] 05-02-2024 10:25-0400 Diastolic blood pressure 82 mm[Hg] Stephenie Barrios [facility] 05-02-2024 10:25-0400 Heart rate 79 /min Stephenie Barrios [facility] 05-02-2024 10:25-0400 Mean blood pressure 102 mm[Hg] Stephenie Barrios [facility] 05-02-2024 10:25-0400 Respiratory rate 14 /min Stephenie Barrios [facility] 05-02-2024 10:25-0400 Systolic blood pressure 143 mm[Hg] Stephenie Barrios [facility] 04-28-2024 10:15-0400 Body height 193.04 cm [facility] 04-28-2024 10:15-0400 Body mass index (BMI) [Ratio] 28.6 kg/m2 [facility] 04-28-2024 10:15-0400 Body weight 106.65 kg [facility] 04-28-2024 10:15-0400 Diastolic blood pressure 79 mm[Hg] [facility] 04-28-2024 10:15-0400 Heart rate 73 /min [facility] 04-28-2024 10:15-0400 Respiratory rate 12 /min [facility] 04-28-2024 10:15-0400 Systolic blood pressure 142 mm[Hg] [facility] 03-14-2024 09:47-0400 Diastolic blood pressure 74 mm[Hg] Stephenie Barrios [facility] 03-14-2024 09:47-0400 Heart rate 67 /min Stephenie Barrios [facility] 03-14-2024 09:47-0400 Mean blood pressure 92 mm[Hg] Stephenie Barrios [facility] 03-14-2024 09:47-0400 Respiratory rate 16 /min Stephenie Barrios [facility] 03-14-2024 09:47-0400 Systolic blood pressure 129 mm[Hg] Stephenie Barrios [facility] 01-25-2024 13:26-0400 Diastolic blood pressure 76 mm[Hg] Stephenie Barrios [facility] 01-25-2024 13:26-0400 Heart rate 71 /min Stephenie Barrios [facility] 01-25-2024 13:26-0400 Mean blood pressure 94 mm[Hg] Stephenie Barrios [facility] 01-25-2024 13:26-0400 Respiratory rate 16 /min Stephenie Barrios [facility] 01-25-2024 13:26-0400 Systolic blood pressure 130 mm[Hg] Stephenie Barrios [facility] 01-18-2024 14:37-0400 Body height 193.04 cm [facility] 01-18-2024 14:37-0400 Body mass index (BMI) [Ratio] 27.8 kg/m2 [facility] 01-18-2024 14:37-0400 Body weight 103.58 kg [facility] 01-18-2024 14:37-0400 Diastolic blood pressure 79 mm[Hg] [facility] 01-18-2024 14:37-0400 Heart rate 71 /min [facility] 01-18-2024 14:37-0400 Respiratory rate 16 /min [facility] 01-18-2024 14:37-0400 Systolic blood pressure 138 mm[Hg] [facility] 01-09-2024 11:34-0500 Heart rate 57 /min Bert Huang [facility] 01-09-2024 11:34-0500 SaO2% (BldA) [Mass fraction] 96 % Bert Huang [facility] 01-09-2024 11:34-0500 Diastolic blood pressure 93 mm[Hg] Bert Huang [facility] 01-09-2024 11:34-0500 Mean blood pressure 118 mm[Hg] Bert Huang [facility] 01-09-2024 11:34-0500 Systolic blood pressure 167 mm[Hg] Bert Huang [facility] 01-09-2024 11:33-0500 Respiratory rate 16 /min Bert Huang [facility] 01-09-2024 11:27-0500 Diastolic blood pressure 83 mm[Hg] Bert Huang [facility] 01-09-2024 11:27-0500 Heart rate 71 /min Bert Huang [facility] 01-09-2024 11:27-0500 Respiratory rate 14 /min Bert Huang [facility] 01-09-2024 11:27-0500 SaO2% (BldA) [Mass fraction] 98 % Bert Huang [facility] 01-09-2024 11:27-0500 Systolic blood pressure 154 mm[Hg] Bert Huang [facility] 01-09-2024 11:03-0500 Diastolic blood pressure 93 mm[Hg] Bert Huang [facility] 01-09-2024 11:03-0500 Heart rate 62 /min Bert Huang [facility] 01-09-2024 11:03-0500 Mean blood pressure 120 mm[Hg] Bert Huang [facility] 01-09-2024 11:03-0500 Systolic blood pressure 173 mm[Hg] Noel Huang [facility] 01-09-2024 11:01-0500 SaO2% (BldA) [Mass fraction] 96 % Bert Jerry [facility] 01-09-2024 11:00-0500 Mean blood pressure 123 mm[Hg] Bert Huang [facility] 01-09-2024 11:00-0500 Body temperature 97.7 [degF] Bert Huang [facility] 01-09-2024 11:00-0500 Respiratory rate 14 /min Bert Huang [facility] 12-31-2023 09:48-0500 Body height 193.04 cm [facility] 12-31-2023 09:48-0500 Body mass index (BMI) [Ratio] 27.6 kg/m2 [facility] 12-31-2023 09:48-0500 Body weight 102.73 kg [facility] 12-31-2023 09:48-0500 Diastolic blood pressure 81 mm[Hg] [facility] 12-31-2023 09:48-0500 Heart rate 68 /min [facility] 12-31-2023 09:48-0500 Respiratory rate 16 /min [facility] 12-31-2023 09:48-0500 Systolic blood pressure 129 mm[Hg] [facility] 12-14-2023 09:54-0500 Blood Pressure Location Homero XAVIER [facility] 12-14-2023 09:54-0500 Diastolic blood pressure 81 mm[Hg] Homero XAVIER [facility] 12-14-2023 09:54-0500 Heart rate 81 /min Homero XAVIER [facility] 12-14-2023 09:54-0500 Respiratory rate 16 /min Homero XAVIER [facility] 12-14-2023 09:54-0500 Systolic blood pressure 137 mm[Hg] Homero XAVIER [facility] 12-10-2023 12:26-0500 Diastolic blood pressure 86 mm[Hg] Stephenie Barrios [facility] 12-10-2023 12:26-0500 Heart rate 60 /min Stephenie Barrios [facility] 12-10-2023 12:26-0500 Mean blood pressure 105 mm[Hg] Stepheniejakob Barrios [facility] 12-10-2023 12:26-0500 Respiratory rate 20 /min Stepheniejakob Barrios [facility] 12-10-2023 12:26-0500 Systolic blood pressure 144 mm[Hg] Stepheniejakob Barrios [facility] 11-14-2023 10:31-0500 Body height 182.9 cm Marisol Connors MD Work Phone: [facility] 11-14-2023 10:31-0500 Body mass index (BMI) [Ratio] 31.33 kg/m2 Marisol Connors MD Work Phone: [facility] 11-14-2023 10:31-0500 Body weight 104.78 kg Marisol Connors MD Work Phone: [facility] 11-14-2023 10:31-0500 Diastolic blood pressure 64 mm[Hg] Marisol Connors MD Work Phone: [facility] 11-14-2023 10:31-0500 Heart rate 62 /min Marisol Connors MD Work Phone: [facility] 11-14-2023 10:31-0500 Systolic blood pressure 100 mm[Hg] Marisol Connors MD Work Phone: [facility] 11-09-2023 11:14-0500 Diastolic blood pressure 76 mm[Hg] Stephenie Barrios [facility] 11-09-2023 11:14-0500 Heart rate 67 /min Stephenie Barrios [facility] 11-09-2023 11:14-0500 Mean blood pressure 95 mm[Hg] Stephenie Barrios [facility] 11-09-2023 11:14-0500 Respiratory rate 14 /min Stephenie Barrios [facility] 11-09-2023 11:14-0500 Systolic blood pressure 132 mm[Hg] Stephenie Barrios [facility] 10-23-2023 09:00-0500 Body height 193.04 cm Devang Ball Other [facility] 10-23-2023 09:00-0500 Body mass index (BMI) [Ratio] 28.31 kg/m2 Devang Ball Other [facility] [employer] Other 10-23-2023 09:00-0500 Body weight 105.51 kg Devang Ball Other [facility] Other 10-23-2023 09:00-0500 Body weight 105.5 kg [facility] 10-23-2023 09:00-0500 Diastolic blood pressure 83 mm[Hg] Devang Ball Other [facility] 10-23-2023 09:00-0500 Respiratory rate 12 /min Devang Ball Other [facility] Other 10-23-2023 09:00-0500 Systolic blood pressure 136 mm[Hg] Devang Ball Other [facility] 10-08-2023 08:11-0500 Heart rate 62 /min Bib Sanchez [facility] 10-08-2023 08:11-0500 SaO2% (BldA) [Mass fraction] 93 % Bib Laura [facility] 10-08-2023 08:11-0500 Diastolic blood pressure 98 mm[Hg] Bibrubi Sanchez [facility] 10-08-2023 08:11-0500 Mean blood pressure 124 mm[Hg] Bib Laura [facility] 10-08-2023 08:11-0500 Systolic blood pressure 175 mm[Hg] Bib Laura [facility] 10-08-2023 08:11-0500 Respiratory rate 16 /min Bib Laura [facility] 10-08-2023 08:02-0500 Diastolic blood pressure 90 mm[Hg] Bib Laura [facility] 10-08-2023 08:02-0500 Heart rate 63 /min Bib Laura [facility] 10-08-2023 08:02-0500 SaO2% (BldA) [Mass fraction] 97 % Bib Laura [facility] 10-08-2023 08:02-0500 Systolic blood pressure 168 mm[Hg] Bib Laura [facility] 10-08-2023 07:16-0500 Heart rate 61 /min Bib Laura [facility] 10-08-2023 07:16-0500 SaO2% (BldA) [Mass fraction] 95 % Bib Laura [facility] 10-08-2023 07:16-0500 Body temperature 97.88 [degF] Bib Laura [facility] 10-08-2023 07:16-0500 Diastolic blood pressure 91 mm[Hg] Bib Laura [facility] 10-08-2023 07:16-0500 Mean blood pressure 115 mm[Hg] Bib Laura [facility] 10-08-2023 07:16-0500 Systolic blood pressure 162 mm[Hg] Bib Laura [facility] 10-08-2023 07:12-0500 Respiratory rate 15 /min Bib Laura [facility] 09-14-2023 07:47-0500 Diastolic blood pressure 75 mm[Hg] Stephenie Brarios [facility] 09-14-2023 07:47-0500 Heart rate 63 /min Stephenie Barrios [facility] 09-14-2023 07:47-0500 Mean blood pressure 91 mm[Hg] Stephenie Barrios [facility] 09-14-2023 07:47-0500 Respiratory rate 16 /min Stephenie Barrios [facility] 09-14-2023 07:47-0500 Systolic blood pressure 124 mm[Hg] Stephenie Barrios [facility] 08-07-2023 13:25-0400 Heart rate 61 /min Bib Laura [facility] 08-07-2023 13:25-0400 SaO2% (BldA) [Mass fraction] 97 % Bib Laura [facility] 08-07-2023 13:25-0400 Diastolic blood pressure 90 mm[Hg] Bib Laura [facility] 08-07-2023 13:25-0400 Mean blood pressure 119 mm[Hg] Bib Laura [facility] 08-07-2023 13:25-0400 Systolic blood pressure 176 mm[Hg] Bib Laura [facility] 08-07-2023 13:19-0400 Diastolic blood pressure 83 mm[Hg] Bib Laura [facility] 08-07-2023 13:19-0400 Heart rate 65 /min Bib Laura [facility] 08-07-2023 13:19-0400 SaO2% (BldA) [Mass fraction] 95 % Bib Laura [facility] 08-07-2023 13:19-0400 Systolic blood pressure 153 mm[Hg] Bib Laura [facility] 08-07-2023 12:34-0400 Heart rate 62 /min Bib Laura [facility] 08-07-2023 12:34-0400 SaO2% (BldA) [Mass fraction] 95 % Bib Laura [facility] 08-07-2023 12:34-0400 Body temperature 97.7 [degF] Bib Laura [facility] 08-07-2023 12:34-0400 Diastolic blood pressure 73 mm[Hg] Bib Laura [facility] 08-07-2023 12:34-0400 Mean blood pressure 101 mm[Hg] Bib Laura [facility] 08-07-2023 12:34-0400 Systolic blood pressure 157 mm[Hg] Bib Laura [facility] 08-07-2023 12:33-0400 Respiratory rate 14 /min Bib Laura [facility] 05-11-2023 09:40-0400 Diastolic blood pressure 77 mm[Hg] Stephenie Barrios [facility] 05-11-2023 09:40-0400 Heart rate 68 /min Stephenie Barrios [facility] 05-11-2023 09:40-0400 Mean blood pressure 95 mm[Hg] Stephenie Barrios [facility] 05-11-2023 09:40-0400 Respiratory rate 14 /min Stephenie Barrios [facility] 05-11-2023 09:40-0400 Systolic blood pressure 130 mm[Hg] Stephenie Barrios [facility] 05-01-2023 14:39-0400 Heart rate 61 /min Bib Laura [facility] 05-01-2023 14:39-0400 SaO2% (BldA) [Mass fraction] 96 % Bib Laura [facility] 05-01-2023 14:39-0400 Diastolic blood pressure 80 mm[Hg] Bib Laura [facility] 05-01-2023 14:39-0400 Mean blood pressure 107 mm[Hg] Bib Laura [facility] 05-01-2023 14:39-0400 Systolic blood pressure 160 mm[Hg] Bib Laura [facility] 05-01-2023 14:39-0400 Respiratory rate 14 /min Bib Laura [facility] 05-01-2023 14:34-0400 Diastolic blood pressure 75 mm[Hg] Bib Laura [facility] 05-01-2023 14:34-0400 Heart rate 63 /min Bib Laura [facility] 05-01-2023 14:34-0400 Respiratory rate 14 /min Bib Laura [facility] 05-01-2023 14:34-0400 SaO2% (BldA) [Mass fraction] 98 % Bib Laura [facility] 05-01-2023 14:34-0400 Systolic blood pressure 149 mm[Hg] Bib Laura [facility] 05-01-2023 14:04-0400 Heart rate 60 /min Bib Sanchez [facility] 05-01-2023 14:04-0400 SaO2% (BldA) [Mass fraction] 94 % Bibrubi Sanchez [facility] 05-01-2023 14:04-0400 Diastolic blood pressure 78 mm[Hg] Bib Laura [facility] 05-01-2023 14:04-0400 Mean blood pressure 103 mm[Hg] Bib Sanchez [facility] 05-01-2023 14:04-0400 Systolic blood pressure 152 mm[Hg] Bib Sanchez [facility] 05-01-2023 14:04-0400 Body temperature 97.34 [degF] Bib Sanchez [facility] 05-01-2023 14:04-0400 Respiratory rate 14 /min Bib Sanchez [facility] 04-30-2023 09:00-0400 Body height 193.04 cm Devang Ball Other [facility] [employer] Other 04-30-2023 09:00-0400 Body mass index (BMI) [Ratio] 28.36 kg/m2 Devang Ball Other [facility] [employer] Other 04-30-2023 09:00-0400 Body weight 105.69 kg Devang Ball Other [facility] Other 04-30-2023 09:00-0400 Diastolic blood pressure 83 mm[Hg] Devang Ball Other [facility] Other 04-30-2023 09:00-0400 Respiratory rate 12 /min Devang Ball Other [facility] Other 04-30-2023 09:00-0400 Systolic blood pressure 135 mm[Hg] Devang Ball Other [facility] Other 03-19-2023 08:45-0400 Diastolic blood pressure 89 mm[Hg] Stephenie Barrios [facility] 03-19-2023 08:45-0400 Heart rate 67 /min Stephenie Barrios [facility] 03-19-2023 08:45-0400 Mean blood pressure 106 mm[Hg] Stephenie Barrios [facility] 03-19-2023 08:45-0400 Respiratory rate 20 /min Stephenie Barrios [facility] 03-19-2023 08:45-0400 Systolic blood pressure 140 mm[Hg] Stephenie Barrios [facility] 03-12-2023 09:15-0400 Heart rate 65 /min Bib Laura [facility] 03-12-2023 09:15-0400 SaO2% (BldA) [Mass fraction] 96 % Bib Laura [facility] 03-12-2023 09:15-0400 Diastolic blood pressure 92 mm[Hg] Bib Laura [facility] 03-12-2023 09:15-0400 Mean blood pressure 114 mm[Hg] Bib Laura [facility] 03-12-2023 09:15-0400 Systolic blood pressure 159 mm[Hg] Bib Laura [facility] 03-12-2023 09:15-0400 Respiratory rate 16 /min Bib Laura [facility] 03-12-2023 09:11-0400 Diastolic blood pressure 67 mm[Hg] Bib Laura [facility] 03-12-2023 09:11-0400 Heart rate 70 /min Bib Laura [facility] 03-12-2023 09:11-0400 Respiratory rate 14 /min Bib Laura [facility] 03-12-2023 09:11-0400 SaO2% (BldA) [Mass fraction] 94 % Bib Laura [facility] 03-12-2023 09:11-0400 Systolic blood pressure 160 mm[Hg] Bib Laura [facility] 03-12-2023 08:09-0400 Heart rate 71 /min Bib Laura [facility] 03-12-2023 08:09-0400 SaO2% (BldA) [Mass fraction] 95 % Bib Laura [facility] 03-12-2023 08:09-0400 Diastolic blood pressure 69 mm[Hg] Bib Laura [facility] 03-12-2023 08:09-0400 Mean blood pressure 102 mm[Hg] Bib Laura [facility] 03-12-2023 08:09-0400 Systolic blood pressure 168 mm[Hg] Bib Laura [facility] 03-12-2023 08:09-0400 Body temperature 97.52 [degF] Bib Laura [facility] 03-12-2023 08:09-0400 Respiratory rate 12 /min Bib Sanchez [facility] 03-08-2023 09:32-0400 Body height 193.04 cm Devang Bustillo Ball Work Phone: [facility] [employer] 250 DO Work Phone: 03-08-2023 09:32-0400 Body mass index (BMI) [Ratio] 29.21 kg/m2 Devang E Ball Work Phone: [facility] [employer] 250 DO Work Phone: 03-08-2023 09:32-0400 Body surface area Derived from formula 2.39 m2 Devang E Ball Work Phone: [facility] [employer]ase 250 DO Work Phone: 03-08-2023 09:32-0400 Body weight 108.86 kg Devang E Ball Work Phone: [facility] 250 DO Work Phone: 03-08-2023 09:32-0400 Diastolic blood pressure 84 mm[Hg] Devang E Ball Work Phone: [facility] 250 DO Work Phone: 03-08-2023 09:32-0400 Heart rate 68 /min Devang E Ball Work Phone: [facility] [employer] DO Work Phone: 03-08-2023 09:32-0400 Systolic blood pressure 132 mm[Hg] Devang E Ball Work Phone: [facility] [employer] DO Work Phone: 02-21-2023 14:00-0400 Body height 193.04 cm Allison Kenyon Other [employer] Other 02-21-2023 14:00-0400 Body mass index (BMI) [Ratio] 30.43 kg/m2 Allison Blades Other [employer] Other 02-21-2023 14:00-0400 Body weight 113.4 kg Allison Blades Other [employer] Other 02-21-2023 14:00-0400 Diastolic blood pressure 66 mm[Hg] Allison Blades Other [employer] Other 02-21-2023 14:00-0400 Systolic blood pressure 110 mm[Hg] Allison Blades Other [employer] Other 01-01-2023 10:00-0500 Body height 190.5 cm [employer]WIN [employer] Other [facility] [employer] Other 01-01-2023 10:00-0500 Body mass index (BMI) [Ratio] 30.62 kg/m2 [employer] Other [facility] [employer] Other 01-01-2023 10:00-0500 Body weight 111.13 kg [employer]WIN [employer] Other [facility] [employer] Other 01-01-2023 10:00-0500 Diastolic blood pressure 66 mm[Hg] LUDWIN [employer] Other [facility] [employer] [facility] Other 01-01-2023 10:00-0500 Respiratory rate 16 /min [employer]WIN [employer] Other [facility] [employer] Other 01-01-2023 10:00-0500 Systolic blood pressure 118 mm[Hg] L[employer]WIN [employer] Other [facility] Other 11-29-2022 10:30-0500 Body height 193.04 cm Allison Blades Other [employer] Other 11-29-2022 10:30-0500 Body mass index (BMI) [Ratio] 29.84 kg/m2 Allison Blades Other [employer] Other 11-29-2022 10:30-0500 Body weight 111.22 kg Allison Blades Other [employer] Other 11-29-2022 10:30-0500 Diastolic blood pressure 84 mm[Hg] Allison Blades Other [employer] Other 11-29-2022 10:30-0500 Systolic blood pressure 138 mm[Hg] Allison Blades Other [employer] Other 11-28-2022 09:00-0500 Blood Pressure Location ALANIS NINA [facility] 11-28-2022 09:00-0500 Diastolic blood pressure 84 mm[Hg] ALANIS NINA [facility] 11-28-2022 09:00-0500 Heart rate 68 /min ALANIS NINA [facility] 11-28-2022 09:00-0500 Respiratory rate 16 /min ALANIS NINA [facility] 11-28-2022 09:00-0500 Systolic blood pressure 121 mm[Hg] ALANIS NINA [facility] 09-26-2022 09:33-0500 Body height 193.04 cm Devang E Ball Work Phone: JO-Rcbhhlytmc-Xwbfwp [place] 250 DO Work Phone: 09-26-2022 09:33-0500 Body mass index (BMI) [Ratio] 29.7 kg/m2 Devang E Ball Work Phone: IF-Fnngmzmblm-Jpwvov [place] 250 DO Work Phone: 09-26-2022 09:33-0500 Body surface area Derived from formula 2.41 m2 Devang E Ball Work Phone: BD-Ckjwjjrtva-Qdgkxb [place] 250 DO Work Phone: 09-26-2022 09:33-0500 Body weight 110.68 kg Devang E Ball Work Phone: VE-Ogenmemzyw-Sployo [place] 250 DO Work Phone: 09-26-2022 09:33-0500 Diastolic blood pressure 78 mm[Hg] Devang E Ball Work Phone: KV-Wovrwaddtz-Hlhxyb [place] 250 DO Work Phone: 09-26-2022 09:33-0500 Heart rate 76 /min Devang E Ball Work Phone: TX-Evtmdoyvma-Efpdfs [place] 250 DO Work Phone: 09-26-2022 09:33-0500 Systolic blood pressure 120 mm[Hg] Devang E Ball Work Phone: GL-Ziwixrrteh-Luhiep [place] 250 DO Work Phone: 03-28-2022 13:43-0400 Body height 193.04 cm Devang E Ball Work Phone: [facility] 250 DO Work Phone: 03-28-2022 13:43-0400 Body mass index (BMI) [Ratio] 28.48 kg/m2 Devang E Ball Work Phone: [facility] 250 DO Work Phone: 03-28-2022 13:43-0400 Body surface area Derived from formula 2.37 m2 Devang Bustillo Ball Work Phone: [facility] 250 DO Work Phone: 03-28-2022 13:43-0400 Body weight 106.14 kg Devang E Ball Work Phone: [facility] 250 DO Work Phone: 03-28-2022 13:43-0400 Diastolic blood pressure 60 mm[Hg] Devang Bustillo Ball Work Phone: [facility] DO Work Phone: 03-28-2022 13:43-0400 Heart rate 88 /min Devang Bustillo Ball Work Phone: [facility] DO Work Phone: 03-28-2022 13:43-0400 Systolic blood pressure 100 mm[Hg] Devang Hall Work Phone: [facility] 250 DO Work Phone: Encounters Encounter Date Encounter Type Care Provider Facility Start: 11-12-2024 End: 11-12-2024 Hector Garay DO Work Phone: [facility] Start: 11-12-2024 End: 11-12-2024 Hector Garay DO Work Phone: [facility] Start: 11-12-2024 End: 11-12-2024 ambulatory ANDREW CRUZ Not Available Start: 11-12-2024 End: 11-12-2024 Office outpatient visit 25 minutes Jr. Andrew Garay DO Work Phone: [facility] Comment on above: Swelling of joint of right knee (Primary Dx); Right knee pain, unspecified chronicity Start: 11-12-2024 End: 11-12-2024 ambulatory ANDREW CRUZ Not Available Start: 09-24-2024 End: 09-24-2024 ambulatory DEVANG HALL Facility:[facility] [place] Start: 09-24-2024 End: 09-24-2024 Patient encounter procedure Bert Huang [facility] Start: 08-27-2024 End: 08-27-2024 ambulatory DEVANG HALL Facility:[facility] [place] Start: 08-27-2024 End: 08-27-2024 Patient encounter procedure Stephenie Barrios [facility] Start: 08-19-2024 End: 08-19-2024 ambulatory Bert Huang Facility:[facility] [place] Start: 08-19-2024 End: 08-19-2024 Pain Management Bert Huang [facility] Start: 08-14-2024 End: 08-14-2024 Bamboo flowsheet Philip Aldrich PT Work Phone: [facility] Start: 08-14-2024 End: 08-14-2024 Bamboo flowsheet Philip Aldrich PT Work Phone: [facility] Start: 08-14-2024 End: 08-14-2024 ambulatory Philip Aldrich PT Work Phone: [facility] Comment on above: Acute pain of left k nee (Primary Dx); Poor balance; History of fall; Difficulty walking; Leg weakness, bilateral; Foot drop, right foot Start: 08-12-2024 End: 08-12-2024 ambulatory Bert Huang Facility:[facility] [place] Start: 08-12-2024 End: 08-12-2024 Patient encounter procedure Bert Huang [facility] Start: 08-11-2024 End: 08-12-2024 ambulatory Jenny Alvarenga [employer] [facility] Comment on above: Acute pain of left k nee (Primary Dx); Poor balance; History of fall; Difficulty walking; Leg weakness, bilateral; Foot drop, right foot; History of falling; Left hip impingement syndrome; Right hip impingement syndrome Start: 08-11-2024 End: 08-11-2024 Bamboo flowsheet Jenny Alvarenga MASH FILTER PRESS OPERATOR [facility] Start: 08-11-2024 End: 08-11-2024 Bamboo flowsheet Jenny Alvarenga MASH FILTER PRESS OPERATOR [facility] Start: 08-07-2024 End: 08-07-2024 Bamboo flowsheet Jenny Alvarenga MASH FILTER PRESS OPERATOR [facility] Start: 08-07-2024 End: 08-07-2024 Bamboo flowsheet Jenny Alvarenga MASH FILTER PRESS OPERATOR [facility] Start: 08-07-2024 End: 08-07-2024 ambulatory Jenny Alvarenga M[employer] FILTER PRESS OPERATOR [facility] Comment on above: Acute pain of left k nee (Primary Dx); Poor balance; History of fall; Difficulty walking; Leg weakness, bilateral; Foot drop, right foot; History of falling; Left hip impingement syndrome; Right hip impingement syndrome Start: 08-05-2024 End: 08-05-2024 Bamboo flowsheet Jenny Alvarenga MASH FILTER PRESS OPERATOR [facility] Start: 08-05-2024 End: 08-05-2024 Bamboo flowsheet Jenny Alvarenga MASH FILTER PRESS OPERATOR [facility] Start: 08-05-2024 End: 08-05-2024 ambulatory Jenny Alvarenga M[employer] FILTER PRESS OPERATOR [facility] Comment on above: Acute pain of left k nee (Primary Dx); Poor balance; History of fall; Difficulty walking; Leg weakness, bilateral; Foot drop, right foot; History of falling; Left hip impingement syndrome; Right hip impingement syndrome Start: 07-31-2024 End: 07-31-2024 Bamboo flowsheet Tita Gaspary MASH FILTER PRESS OPERATOR [facility] Start: 07-31-2024 End: 07-31-2024 Bamboo flowsheet Tita Gaspary MASH FILTER PRESS OPERATOR [facility] Start: 07-31-2024 End: 07-31-2024 ambulatory Tita Gaspary MASH FILTER PRESS OPERATOR [facility] Comment on above: Acute pain of left k nee (Primary Dx); Poor balance; History of fall; Difficulty walking; Leg weakness, bilateral; Foot drop, right foot; History of falling Start: 07-29-2024 End: 07-29-2024 Bamboo flowsheet Jenny Buiink MASH FILTER PRESS OPERATOR [facility] Start: 07-29-2024 End: 07-29-2024 Bamboo flowsheet Jenny Buiink MASH FILTER PRESS OPERATOR [facility] Start: 07-29-2024 End: 07-29-2024 ambulatory Jenny Buiink M[employer] FILTER PRESS OPERATOR [facility] Comment on above: Acute pain of left k nee (Primary Dx); Poor balance; History of fall; Difficulty walking; Leg weakness, bilateral; Foot drop, right foot; History of falling; Left hip impingement syndrome; Right hip impingement syndrome Start: 07-24-2024 End: 07-24-2024 Bamboo flowsheet Jenny Brink MASH FILTER PRESS OPERATOR [facility] Start: 07-24-2024 End: 07-24-2024 Bamboo flowsheet Jenny Buiink MASH FILTER PRESS OPERATOR [facility] Start: 07-24-2024 End: 07-24-2024 ambulatory Jenny Alvarenga MASH FILTER PRESS OPERATOR [facility] Comment on above: Acute pain of left k nee (Primary Dx); History of fall; Poor balance; Difficulty walking; Leg weakness, bilateral; Foot drop, right foot; History of falling; Left hip impingement syndrome; Right hip impingement syndrome Start: 07-22-2024 End: 07-22-2024 Bamboo flowsheet Jenny Buiink MASH FILTER PRESS OPERATOR [facility] Start: 07-22-2024 End: 07-22-2024 Bamboo flowsheet Jenny Buiink MASH FILTER PRESS OPERATOR [facility] Start: 07-22-2024 End: 07-22-2024 ambulatory Jenny Alvarenga MASH FILTER PRESS OPERATOR [facility] Comment on above: Acute pain of left k nee (Primary Dx); History of fall; Poor balance; Difficulty walking; Leg weakness, bilateral; Foot drop, right foot; History of falling; Left hip impingement syndrome; Right hip impingement syndrome Start: 07-17-2024 End: 07-17-2024 Bamboo flowsheet Patti Guzmantersall MASH FILTER PRESS OPERATOR [facility] Start: 07-17-2024 End: 07-17-2024 Bamboo flowsheet Patti Tattersall MASH FILTER PRESS OPERATOR [facility] Start: 07-17-2024 End: 07-17-2024 ambulatory Patti Guzmantersall MASH FILTER PRESS OPERATOR [facility] Comment on above: Acute pain of left k nee (Primary Dx); History of fall; Poor balance; Leg weakness, bilateral Start: 07-15-2024 End: 07-15-2024 Bamboo flowsheet Ramírez P[facility]z DO [facility] Start: 07-15-2024 End: 07-15-2024 Bamboo flowsheet Ramí[facility] Start: 07-15-2024 End: 07-15-2024 Office outpatient new 45 minutes Ramírez Paez DO Work Phone: [facility] Comment on above: Multilevel degenerat michelle disc disease (Primary Dx); Hypophonia Start: 07-15-2024 End: 07-15-2024 ambulatory Jenny Brink MASH FILTER PRESS OPERATOR [facility] Comment on above: Acute pain of left k nee (Primary Dx); History of fall; Poor balance; Leg weakness, bilateral; Difficulty walking; Foot drop, right foot; History of falling; Left hip impingement syndrome; Right hip impingement syndrome Start: 07-10-2024 End: 07-10-2024 Bamboo flowsheet Jenny Brink MASH FILTER PRESS OPERATOR [facility] Start: 07-10-2024 End: 07-10-2024 Bamboo flowsheet Jenny Brink MASH FILTER PRESS OPERATOR [facility] Start: 07-10-2024 End: 07-10-2024 ambulatory Jenny Brink MASH FILTER PRESS OPERATOR [facility] Comment on above: Acute pain of left k nee (Primary Dx); History of fall; Poor balance; Leg weakness, bilateral; Difficulty walking; Foot drop, right foot; History of falling; Left hip impingement syndrome; Right hip impingement syndrome Start: 07-08-2024 End: 07-08-2024 Bamboo flowsheet Jenny Brink MASH FILTER PRESS OPERATOR [facility] Start: 07-08-2024 End: 07-08-2024 Bamboo flowsheet Jenny Brink MASH FILTER PRESS OPERATOR [facility] Start: 07-08-2024 End: 07-08-2024 Telephone encounter Jr. Andrew Garay DO Work Phone: [facility] Comment on above: Dentist Start: 07-08-2024 End: 07-08-2024 ambulatory Jenny Alvarenga MASH FILTER PRESS OPERATOR [facility] Comment on above: Acute pain of left k nee (Primary Dx); History of fall; Poor balance; Foot drop, right foot; Difficulty walking; Leg weakness, bilateral; History of falling; Left hip impingement syndrome; Right hip impingement syndrome Start: 07-03-2024 End: 07-03-2024 Bamboo flowsheet Patti Miranda MASH FILTER PRESS OPERATOR [facility] Start: 07-03-2024 End: 07-03-2024 Bamboo flowsheet Patti Miranda MASH FILTER PRESS OPERATOR [facility] Start: 07-03-2024 End: 07-03-2024 ambulatory Patti Miranda MASH FILTER PRESS OPERATOR [facility] Comment on above: Acute pain of left k nee (Primary Dx); History of fall; Poor balance; Foot drop, right foot Start: 07-02-2024 End: 07-02-2024 ambulatory Stephenie Barrios Facility:[facility] [place] Start: 07-02-2024 End: 07-02-2024 Pain Management Stephenie Barrios [facility] Start: 06-24-2024 End: 06-24-2024 ambulatory Bert Huang Facility:[facility] [place] Start: 06-24-2024 End: 06-24-2024 Pain Management Bert Huang [facility] Start: 06-23-2024 End: 06-23-2024 ambulatory MERLIN GERBER Not Available Start: 06-19-2024 End: 06-19-2024 ambulatory JENNY BRCARLOS Not Available Start: 06-17-2024 End: 06-17-2024 Patient encounter procedure Bert Huang [facility] Start: 06-17-2024 End: 06-17-2024 ambulatory Bert Huang Facility:[facility] [place] Start: 06-17-2024 End: 06-17-2024 Pain Management Bert Huang [facility] Start: 06-17-2024 End: 06-17-2024 ambulatory JENNY ALVARENGA Not Available Start: 06-13-2024 End: 06-13-2024 ambulatory [facility] Work Phone: Start: 06-13-2024 End: 06-13-2024 Patient encounter procedure [facility] Work Phone: Start: 06-12-2024 End: 06-12-2024 ambulatory ALANIS WOOD Facility:[facility] Start: 06-12-2024 End: 06-12-2024 Patient encounter procedure ALANIS WOOD [facility] Start: 06-10-2024 End: 06-10-2024 ambulatory JENNY ALVARENGA Not Available Start: 06-06-2024 End: 06-06-2024 ambulatory FATOUMATA MONTES Not Available Start: 06-05-2024 End: 06-05-2024 ambulatory TITA FULTON Not Available Start: 06-03-2024 End: 06-03-2024 ambulatory JENNY ALVARENGA Not Available Start: 05-29-2024 End: 05-29-2024 ambulatory PHILIP ALDRICH Not Available Start: 05-27-2024 End: 05-27-2024 ambulatory PHILIP ALDRICH Not Available Start: 05-22-2024 End: 05-22-2024 Office outpatient visit 25 minutes Marisol Connors MD Work Phone: [facility] Comment on above: Arteriosclerosis of coronary artery (Primary Dx); Essential hypertension; Dyslipidemia; Status post coronary angioplasty; BMI 31.0-31.9,adult; Former smoker; At risk for falls; Idiopathic peripheral neuropathy Start: 05-22-2024 End: 05-22-2024 ambulatory MARISOL Gao [facility] Ambulatory Start: 05-13-2024 End: 05-13-2024 ambulatory FATOUMATA MONTES Not Available Start: 05-07-2024 End: 05-07-2024 ambulatory [facility] Work Phone: Start: 05-07-2024 End: 05-07-2024 Patient encounter procedure [facility] Work Phone: Start: 05-02-2024 End: 05-02-2024 ambulatory DEVANG HALL Facility:[facility] [place] Start: 05-02-2024 End: 05-02-2024 Pain Management Stephenie Barrios [facility] Start: 04-29-2024 Non-patient / Non-visit [facility] [place] Work Phone: Start: 04-28-2024 End: 04-28-2024 ambulatory [facility] Work Phone: Start: 04-28-2024 End: 04-28-2024 Patient encounter procedure [facility] Work Phone: Start: 03-14-2024 End: 03-14-2024 ambulatory PA-C Stephenie Barrios Facility:[facility] [place] Start: 03-14-2024 End: 03-14-2024 Pain Management Stephenie Barrios [facility] Start: 02-25-2024 End: 02-25-2024 ambulatory ANDREW CRUZ Not Available Start: 01-25-2024 End: 01-25-2024 ambulatory PA-C Stephenie Barrios Facility:[facility] [place] Start: 01-25-2024 End: 01-25-2024 Pain Management Stephenie Barrios [facility] Start: 01-18-2024 End: 01-18-2024 ambulatory [facility] Work Phone: Start: 01-18-2024 End: 01-18-2024 Patient encounter procedure [facility] Work Phone: Start: 01-09-2024 End: 01-09-2024 ambulatory Bert Huang Facility:[facility] [place] Start: 01-09-2024 End: 01-09-2024 Pain Management Bert Huang [facility] Start: 12-31-2023 End: 12-31-2023 ambulatory [facility] Work Phone: Start: 12-31-2023 End: 12-31-2023 Patient encounter procedure [facility] Work Phone: Start: 12-24-2023 Non-patient / Non-visit [facility] [place] [employer] Work Phone: Start: 12-14-2023 End: 12-14-2023 ambulatory Homero XAVIER Facility:[facility] Start: 12-14-2023 End: 12-14-2023 Patient encounter procedure Homero XAVIER [facility] Start: 12-11-2023 End: 12-11-2023 ambulatory ALANIS WOOD Facility:[facility] Start: 12-10-2023 End: 12-10-2023 ambulatory PA-C Stephenie Barrios Facility:[facility] [place] Start: 12-10-2023 End: 12-10-2023 Pain Management Stephenie Barrios [facility] Start: 11-28-2023 End: 11-28-2023 ambulatory Devang Hall Other [facility] [employer] Other Start: 11-28-2023 Telephone encounter Devang Hall [facility] Start: 11-14-2023 End: 11-14-2023 Office outpatient visit 25 minutes Marisol Connors MD Work Phone: [facility] Comment on above: Arteriosclerosis of coronary artery (Primary Dx); Status post coronary angioplasty; Dyslipidemia; Essential hypertension; Obesity (BMI 30.0-34.9); At risk for falls Start: 11-14-2023 End: 11-14-2023 ambulatory PARRA [facility] Start: 11-09-2023 End: 11-09-2023 ambulatory RAMONITA Barrios Facility:[facility] [place] Start: 11-09-2023 End: 11-09-2023 Pain Management Stephenie Barrios [facility] Start: 10-23-2023 End: 10-23-2023 ambulatory Devang Hall Other [facility] [employer] Other Start: 10-23-2023 Office outpatient vi sit 25 minutes Devang [facility] Start: 10-23-2023 End: 10-23-2023 Patient encounter procedure [facility] Work Phone: Start: 10-08-2023 End: 10-08-2023 ambulatory Bib Manuel Sanchez Facility:[facility] [place] Start: 10-08-2023 End: 10-08-2023 Pain Management Bib D Laura [facility] Start: 09-14-2023 End: 09-14-2023 ambulatory DEVANG HALL Facility:[facility] [place] Start: 09-14-2023 End: 09-14-2023 Pain Management Stephenie Barrios [facility] Start: 09-04-2023 End: 09-04-2023 ambulatory Bib D Laura Facility:[facility] [place] Start: 08-28-2023 End: 08-28-2023 ambulatory Bib D Laura Facility:[facility] [place] Start: 08-07-2023 End: 08-07-2023 ambulatory Bib D Laura Facility:[facility] [place] Start: 08-07-2023 End: 08-07-2023 Pain Management Bib D Laura [facility] Start: 05-11-2023 End: 05-11-2023 Pain Management Stephenie Barrios [facility] Start: 05-03-2023 End: 05-03-2023 ambulatory Devang Hall Other [employer] Other Start: 05-03-2023 Telephone encounter Devang Hall [facility] Start: 05-01-2023 End: 05-01-2023 ambulatory Devang Hall Other [employer] Other Start: 05-01-2023 Telephone encounter Devang Hall [facility] Start: 05-01-2023 End: 05-01-2023 Pain Management Bib Sanchez [facility] Start: 04-30-2023 End: 04-30-2023 ambulatory Devang Hall Other [employer] Other Start: 04-30-2023 Patient encounter procedure [facility] Start: 03-19-2023 End: 03-19-2023 Pain Management Stepheniejakob Barrios [facility] Start: 03-14-2023 End: 03-15-[address] MARISOL CONNORS Facility:[facility] Start: 03-12-2023 End: 03-13-[address] MARISOL CONNORS Facility:[facility] Start: 03-12-2023 End: 03-12-2023 Pain Management Bib Sanchez [facility] Start: 03-08-2023 FUV, Provider: Marisol Connors, Status: Pen, Time: 9:50 AM Devang Hall Work Phone: -[facility] 250 DO Work Phone: Start: 03-08-2023 Office outpatient vi sit 25 minutes Devang Hall Work Phone: [facility] [facility] 250 DO Work Phone: Start: 03-08-2023 ambulatory Marisol Connors Facility : Start: 03-06-2023 Rx Renewal Devang collins Work Phone: [facility] 250 DO Work Phone: Start: 02-21-2023 End: 02-21-2023 ambulatory Allison Blades Other [facility] Other Start: 02-21-2023 Office outpatient vi sit 15 minutes Allison Blades [facility] Start: 01-10-2023 End: 03-02-[address] DOCTOR PLUMMER Facility:[facility] Start: 01-01-2023 End: 01-01-2023 ambulatory [facility] Other [facility] Other Start: 01-01-2023 Office outpatient ne w 45 minutes [facility] PPN Start: 11-29-2022 End: 11-29-2022 ambulatory Allison Blades Other [facility] Other Start: 11-29-2022 Office outpatient ne w 45 minutes Allison Blades [facility] Start: 11-29-2022 Telephone encounter Allison Kenyon [facility] Start: 11-28-2022 End: 11-28-2022 Patient encounter procedure ALANIS WOOD [facility] Start: 11-15-2022 End: 11-15-2022 ambulatory Devang Hall Other [place] [employer] Other Start: 11-15-2022 Telephone encounter Devang Hall [facility] Start: 11-14-2022 End: 11-15-[address] DEVANG HALL Facility:[facility] Start: 10-11-2022 Rx Renewal Devang collins Work Phone: [facility] 250 DO Work Phone: Start: 09-26-2022 Office outpatient vi sit 25 minutes Devang Hall Work Phone: [facility]-Bgfffdd y 250 DO Work Phone: Start: 09-26-2022 ambulatory Marisol Connors Facility : Start: 05-30-2022 End: 05-30-2022 Patient encounter procedure Goldy Alberto Jr. [facility] Start: 05-11-2022 End: 05-11-2022 Patient encounter procedure Goldy Alberto Jr. [facility] Start: 05-09-2022 End: 05-09-2022 Patient encounter procedure Goldy lAberto Jr. [facility] Start: 04-25-2022 End: 04-25-2022 Emergency department patient visit Dr. Devang Hall Facility:[facility] Start: 04-07-2022 End: 04-08-[address] MARISOL CONNORS Facility: Start: 03-28-2022 Office outpatient vi sit 25 minutes Devang Hall Work Phone: [facility] 250 DO Work Phone: Start: 03-28-2022 ambulatory Marisol Connors Facility : Start: 03-06-2022 Rx Renewal Marisol Connors MD Work Phone: [facility] 250 DO Work Phone: Start: 09-26-2021 Rx Renewal Mairsol Connors MD Work Phone: [facility] 250 DO Work Phone: Start: 09-22-2021 Rx Renewal Marisol Connors MD Work Phone: -[facility] 250 DO Work Phone: Start: 04-11-2018 End: 04-13-2018 Evaluation and management of inpatient DEVANG HALL [facility] Start: 04-10-2018 [facility] Start: 04-10-2018 End: 04-15-2018 Ambulatory [place] [facility] Procedures Date Procedure Procedure Detail Performing Clinician Start: 11-12-2024 Radiologic examinati on knee 1/2 views Jr. Andrew Garay DO Work Phone: Start: 08-19-2024 Local anesthetic sac ral epidural block [employer] Comment on above: 60% relief Start: 06-24-2024 Epidural insertion o f temporary spinal cord stimulator electrode [employer] Comment on above: 60% relief Start: 01-09-2024 Injection of sacroil iac joint using fluoroscopic guidance [employer] Comment on above: 90% relief for 4 hrs Start: 10-08-2023 Radiofrequency ablat ion of nerve root of lumbar spine using fluoroscopic guidance [employer] Comment on above: Bilateral L3/4+L4/5- no relief Start: 09-04-2023 Injection of facet j oint using fluoroscopic guidance [employer] Comment on above: Bilateral L3/4, L4/5 MBB-80% relief for 1 day Start: 08-07-2023 Injection of facet j oint using fluoroscopic guidance [employer] Comment on above: BL L3/L4 L4/L5 MBB 8 5% Relief x 4 hours Start: 05-29-2023 Local anesthetic sac ral epidural block Bib Sanchez Comment on above: Caudal john 50% relie f Start: 05-01-2023 Injection of facet j oint using fluoroscopic guidance [employer] Comment on above: bilateral 75% relief for 2 hours Start: 03-12-2023 Injection of facet j oint using fluoroscopic guidance [employer]ie [employer] Comment on above: pt changed amt of re lief to 80% x 4 hr. bilat L3/4 MBB- 50% relief x 4 hr Start: 05-11-2022 Injection of therape utic substance into bladder wall ALANIS NINA Start: 02-07-2021 Blepharoplasty Goldy Burleson karsten Cruz Start: 12-02-2020 Cystourethroscopy wi th dilation of urethral stricture Goldy Remy Cruz Start: 11-02-2020 Cataract extraction and insertion of intraocular lens Goldyjorje Alebrto Jr. Start: 04-28-2020 Transurethral prostatectomy Goldyjorje Alberto Jr. Start: 12-08-2019 Cystourethroscopy wi th dilation of urethral stricture Goldy Remy Cruz Start: 10-16-2019 back surgery 1 Goldy shelley Comment on above: 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 3 Start: 10-16-2019 back surgery 10 Stephenie Barrios Comment on above: 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 3 Start: 10-16-2019 back surgery 11 Stephenie Barrios Comment on above: 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 3 Start: 10-16-2019 back surgery 3 Stephenie levin Comment on above: 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 3 Start: 10-16-2019 back surgery 4 Stephenie levin Comment on above: due to [...] Alberto Jr. Arthroplasty of knee Sinan gray Hall Work Phone: Arthroscopy of knee Marisol [...] - Tdap) DTaP/Tdap/Td Vaccines (2 - Tdap) [facility] Start: 11-11-2025 End: 11-11-2025 Patient encounter procedure 11/11/2025 10:15 AM EST Office Visit [facility] [address] [place] [address] Jr. Andrew Garay DO [address] [place] [address] [facility] Start: 11-12-2024 End: 11-12-2024 Patient encounter procedure [facility] Comment on above: Arrived Start: 08-14-2024 End: 08-14-2024 ambulatory [facility] Comment on above: Arrived Start: 08-11-2024 End: 08-11-2024 ambulatory [facility] Comment on above: Acute pain of left k nee (Primary Dx); Poor balance; History of fall; Difficulty walking; Leg weakness, bilateral; Foot drop, right foot; History of falling Start: 08-07-2024 End: 08-07-2024 ambulatory 08/07/2024 10:00 AM EDT Treatment [facility] [address] [place] [address] Jenny Alvarenga, MASH FILTER PRESS OPERATOR [facility] Start: 08-05-2024 End: 08-05-2024 ambulatory 08/05/2024 10:00 AM EDT Treatment [facility] [address] [place] [address] Jenny Alvarenga MASH FILTER PRESS OPERATOR [facility] Start: 07-31-2024 End: 07-31-2024 ambulatory 07/31/2024 11:00 AM EDT Treatment [facility] [address] [place] [address] Tita Fulton MASH FILTER PRESS OPERATOR [facility] Start: 07-29-2024 End: 07-29-2024 ambulatory 07/29/2024 10:00 AM EDT Treatment [facility] [address] [place] [address] Jenny Alvarenga, MASH FILTER PRESS OPERATOR [facility] Start: 07-24-2024 End: 07-24-2024 ambulatory 07/24/2024 10:00 AM EDT Treatment [facility] [address] [place] [address] Jenny Alvarenga, MASH FILTER PRESS OPERATOR [facility] Start: 07-22-2024 End: 07-22-2024 ambulatory [facility] Comment on above: Acute pain of left k nee (Primary Dx); History of fall; Poor balance; Difficulty walking; Leg weakness, bilateral; Foot drop, right foot; History of falling; Left hip impingement syndrome Start: 07-17-2024 End: 07-17-2024 ambulatory [facility] Comment on above: Acute pain of left k nee (Primary Dx); History of fall; Poor balance; Leg weakness, bilateral Start: 07-15-2024 End: 07-15-2024 ambulatory [facility] Start: 07-15-2024 End: 07-15-2024 Patient encounter procedure [facility] Comment on above: Arrived Start: 07-10-2024 End: 07-10-2024 ambulatory 07/10/2024 9:00 AM EDT Treatment [facility] [address] [place] [address] Jenny Alvarenga, MASH FILTER PRESS OPERATOR [facility] Start: 07-08-2024 End: 07-08-2024 ambulatory [facility] Comment on above: Arrived Start: 07-06-2024 Influenza vaccination Influenza Vacc ine (#1) [facility] Start: 05-22-2024 End: 05-22-2024 Patient encounter procedure 05/22/2024 9:50 AM EDT Office Visit [facility] [address] [facility] [address] [place] [address] Marisol Connors MD [address] [facility] [address], [facility] [address] [place] [address] [facility] Start: 09-18-2023 FUV, Provider: Marisol Connors, Status: Pen, Time: 9:50 AM FUV, Provider: Marisol Connors, Status: Pen, Time: 9:50 AM [facility] 250 DO Work Phone: Start: 07-06-2023 COVID-19 Vaccine ( season) COVID-19 Vaccine ( season) [facility] Start: 03-08-2023 FUV, Provider: Marisol Connors, Status: Pen, Time: 9:50 AM FUV, Provider: Marisol Connors, Status: Pen, Time: 9:50 AM [id number] 250 DO Work Phone: Start: 10-22-2022 COVID-19 Vaccine (4 - Pfizer series) COVID-19 Vaccine (4 - Pfizer series) [facility] Start: 09-26-2022 FUV, Provider: Marisol Connors, Status: Pen, Time: 9:40 AM FUV, Provider: Marisol Connors, Status: Pen, Time: 9:40 AM [facility] 250 DO Work Phone: Start: 03-28-2022 FUV, Provider: Marisol Connors, Status: Pen, Time: 1:20 PM FUV, Provider: Marisol Connors, Status: Pen, Time: 1:20 PM [facility] 250 DO Work Phone: Start: 12-15-2021 FUV, Provider: Marisol Connors, Status: Pen, Time: 10:30 AM FUV, Provider: Marisol Connors, Status: Pen, Time: 10:30 AM [facility] [employer] 250 DO Work Phone: Start: 2006 RSV patient s and/or patients aged 60+ years (1 - 1-dose 60+ series) RSV patients and/or patients aged 60+ years (1 - 1-dose 60+ series) [facility] Start: 1996 Zoster Vaccines (1 of 2) Zoste r Vaccines (1 of 2) [facility] Start: 1964 Hepatitis C [facility] Lipid panel Lipid Panel [facility] Start: 1945 Medicare Annual Well ness Visit Medicare Annual Wellness Visit (AWV) [facility] Comprehensive metabo lic 2000 panel - Serum or Plasma [facility] Immunizations Immunization Date Immunization Notes Care Provider Tali hwang 10-24-2024 influenza virus vaccine, unspecified formulation Jr. Garay DO Work Phone: [facility] 08-20-2023 influenza virus vaccine, unspecified formulation Homero XAVIER [facility] 08-27-2022 Pfizer COVID-19 Vac Bivalent 30 MCG/0.3ML Intramuscular Suspension Devang Hall Work Phone: [facility] 08-14-2022 Fluzone High-Dose Quadrivalent 0.7 ML Intramuscular Suspension Prefilled Syringe Devang Hall Work Phone: [facility] 250 DO Work Phone: 08-14-2022 influenza virus vaccine, unspecified formulation ALANIS WOOD [facility] 08-14-2022 influenza, high dose seasonal, preservative-free Devang Hall Other [facility] Other 10-03-2021 Pfizer-BioNTech COVID-19 Vacc 30 MCG/0.3ML Intramuscular Suspension Devang Hall Work Phone: [facility] 10-03-2021 SARS-CoV-2 (COVID-19 ) Ad26 vaccine, recombinant Goldy Alberto Jr. [facility] 07-01-2021 Fluzone High-Dose Quadrivalent 0.7 ML Intramuscular Suspension Prefilled Syringe Devang Hall Work Phone: [facility] 07-01-2021 influenza virus vaccine, unspecified formulation ALANIS VERDUGORY [facility] 06-05-2021 influenza virus vaccine, unspecified formulation Goldy Alberto Jr. [facility] 01-25-2021 Pfizer-BioNTech COVID-19 Vacc 30 MCG/0.3ML Intramuscular Suspension Marisol Connors MD Work Phone: [facility] 01-25-2021 SARS-CoV-2 (COVID-19 ) Ad26 vaccine, recombinant Goldy Alberto [facility] 01-03-2021 COVID-19 Vaccine Pfi zer - Documentation Purposes Only Devang Hall Other [facility] 01-03-2021 SARS-CoV-2 (COVID-19 ) mRNA-1273 vaccine Goldy Alberto [facility] 12-28-2020 Pfizer-BioNTech COVID-19 Vacc 30 MCG/0.3ML Intramuscular Suspension Devang Hall Work Phone: [facility] 11-08-2020 diphtheria, tetanus toxoids and pertussis vaccine Devang Hall Work Phone: [place] [address] DO Work Phone: 07-06-2020 influenza virus vaccine, unspecified formulation Marisol Connors MD Work Phone: [facility] 07-02-2020 influenza virus vaccine, unspecified formulation ALANIS WOOD [facility] 08-19-2018 influenza virus vaccine, unspecified formulation ALANIS WOOD [facility] 08-19-2018 Seasonal trivalent influenza vaccine, adjuvanted, preservative free Devang Hall Work Phone: [facility] 250 DO Work Phone: 07-06-2018 influenza virus vaccine, unspecified formulation Marisol Connors MD Work Phone: [facility] 250 DO Work Phone: 08-24-2017 pneumococcal conjuga te vaccine, 13 valent Devang Hall Work Phone: [facility] 08-17-2017 influenza virus vaccine, unspecified formulation ALANIS WOOD [facility] 08-17-2017 influenza, high dose seasonal, preservative-free Devang E Ball Work Phone: [place] [address] DO Work Phone: 08-17-2017 influenza, injectabl e, quadrivalent, preservative free Patti Miranda [facility] 11-05-2016 pneumococcal polysaccharide vaccine, 23 valent Marisol Connors MD Work Phone: [place] [address] DO Work Phone: 08-11-2016 influenza virus vaccine, unspecified formulation ALANIS WOOD [facility] 08-05-2016 influenza virus vaccine, unspecified formulation ALANIS WOOD [facility] 08-05-2016 influenza, injectabl e, quadrivalent, preservative free Devang E Ball Work Phone: [facility] 07-06-2014 pneumococcal polysaccharide vaccine, 23 valent Devang E Rafael Work Phone: [facility] Payers Date Payer Category Payer Medicaid [employer] MEDICARE A DVANTAGE [id number] 2021 Medicare [id number]. [id number] 2017 Medicare [id number] 1959 Medicare [id number] 2.16.840.1.627454.19 1946 Unknown [id number] 2.16.840.1.881852.3.579.2.356 1946 Unknown [id number] 2.16.840.1.689012.3.579.2.356 1946 Unknown [id number] 2.16.840.1.230549.3.579.2.356 1946 Unknown [id number] 2.16.840.1.379517.3.579.2.356 1946 Unknown [id number] 2.16.840.1.023592.3.579.2.593 1946 Unknown [id number] 2.16.840.1.866690.3.579.2.593 1946 Unknown [id number] 2.16.840.1.971826.3.579.2.593 1946 Unknown [id number] 2.16.840.1.051168.3.579.2.593 1946 Unknown [id number] 2.16.840.1.764056.3.579.2.593 1946 Unknown [id number] 2.16.840.1.078726.3.579.2.1244 1946 Unknown [id number] 2.16.840.1.501201.3.579.2.1244 1946 Unknown [id number] 2.16.840.1.283269.3.579.2.727 1946 Unknown [id number] 2.16.840.1.131103.3.579.2.727 1946 Unknown [id number] 2.16.840.1.860963.3.579.2. 1946 Unknown [id number] 2.16.840.1.753621.3.579.2 1946 Unknown [id number] 2.16.840.1.833404.3.579.2 1946 Unknown [id number] 2.16.840.1.370169.3.579.2 1946 Unknown [id number] 2.16.840.1.429647.3.579.2 1946 Unknown [id number] 2.16.840.1.233334.3.579.2 1946 Unknown [id number] 2.16.840.1.202935.3.579.2 1946 Unknown [id number] 2.16.840.1.557132.3.579.2 1946 Unknown [id number] 2.16.840.1.263251.3.579.2 1946 Unknown [id number] 2.16.840.1.986065.3.579.2 1946 Unknown [id number] 2.16.840.1.146377.3.579.2 1946 Unknown [id number] 2.16.840.1.767198.3.579.2 1946 Unknown [id number] 2.16.840.1.228107.3.579.2 1946 Unknown [id number] 2.16.840.1.473833.3.579.2 1946 Unknown [id number] 2.16.840.1.927739.3.579.2 1946 Unknown [id number] 2.16.840.1.780401.3.579.27 1946 Unknown [id number] 2.16.840.1.398991.3.579.2. 1946 Unknown [id number] 2.16.840.1.649469.3.579.2. 1946 Unknown [id number] 2.16.840.1.057731.3.579.2. 1946 Unknown [id number] 2.16.840.1.829319.3.579.2. 1946 Unknown [id number] 2.16.840.1.989525.3.579.2. 1946 Unknown [id number] 2.16.840.1.891629.3.579.2.1258 1946 Unknown [id number] 2.16840.1.244990.3.579.2.1258 1946 Unknown [id number] 2.16840.1.798514.3.579.2.1258 1946 Unknown [id number] 2.16.840.1.368134.3.579.2.1258 1946 Unknown [id number] 2.16.840.1.356173.3.579.2.1258 1946 Unknown [id number] 2.16840.1.683734.3.579.2.1258 1946 Unknown [id number] 2.16.840.1.062070.3.579.2.1258 1946 Unknown [id number] 2.16.840.1.676714.3.579.2.1258 1946 Unknown [id number] 2.16.840.1.493264.3.579.2.1258 1946 Unknown [id number] 2.16.840.1.084948.3.579.2.1258 1946 Unknown [id number] 2.16.840.1.143912.3.579.2.1258 1946 Unknown [id number] 2.16.840.1.758620.3.579.2.1258 1946 Unknown [id number] 2.16.840.1.340956.3.579.2.1258 1946 Unknown [id number] 2.16.840.1.661305.3.579.2.1258 1946 Unknown [id number] 2.16.840.1.271307.3.579.2.1258 1946 Unknown [id number] 2.16.840.1.294444.3.579.2.1258 1946 Unknown [id number] 2.16.840.1.862280.3.579.2.1258 1946 Unknown [id number] 2.16.840.1.814418.3.579.2.1258 1946 Unknown [id number] 2.16.840.1.569465.3.579.2.1258 1946 Unknown [id number] 2.16.840.1.457894.3.579.2.1258 1946 Unknown [id number] 2.16.840.1.749785.3.579.2.1258 1946 Unknown [id number] 2.16.840.1.259675.3.579.2.1258 1946 Unknown [id number] 2.16.840.1.242668.3.579.2.1258 1946 Unknown [id number] 2.16.840.1.378241.3.579.2.1258 1946 Unknown [id number] 2.16.840.1.105876.3.579.2.1258 1946 Unknown [id number] 2.16.840.1.037913.3.579.2.1259 1946 Unknown [id number] 2.16.840.1.016358.3.579.2.1259 1946 Unknown [id number] 2.16.840.1.471271.3.579.2.1259 Self-pay Self Pay [id number] Unknown [employer] Social History Date Type Detail Facility Tobacco smoking stat us ARIS Unknown if ever smoked [facility] Start: 1945 Sex Assigned At Male [facility] Start: 11-14-2023 End: 11-12-2024 Social alcohol use Social alcohol use -[facility] 250 DO Work Phone: Start: 11-15-2021 End: 07-14-2024 Tobacco smoking status Ex-smoker (finding) [facility] Comment on above: pt quit smoking in 1 984 Start: 11-14-2023 End: 11-12-2024 Sex Assigned At Male [facility] Tobacco smoking status Never [facility] Comment on above: pt quit smoking in 1 984 Start: 01-01-2023 End: 04-05-2023 Tobacco smoking status NHIS Never Smoker [facility] History of tobacco use Current smoker [facility] Work Phone: History of tobacco use Cigarette Smoker [facility] Work Phone: Start: 11-14-2023 End: 07-14-2024 Tobacco use and exposure Smokeless tobacco non-user [facility] Work Phone: Start: 11-14-2023 Alcohol intake Ex-drinker (finding) [facility] Work Phone: Start: 1945 Sex Assigned At Not on file [facility] Work Phone: Start: 11-04-2023 End: 05-22-2024 Exposure to SARS-CoV-2 (event) Not sure [facility] Start: 07-15-2024 End: 11-12-2024 Alcoholic beverage intake Current drinker of alcohol (finding) [facility] Work Phone: Start: 04-05-2023 Alcohol Comment caffeine 2-3 cups/da y [facility] Medical Equipment Procedure Code Equipment Code Equipment Origin al Text Equipment Identifier Dates FDA Start: 06-16-2019 CL CLOSURE DEVIC E EXOSEAL 6F FDA Start: 06-16-2019 CATARACT EXTRACT ION W/ INTRAOCULAR LENS Adolph Schultz DO 11/02/20 Non Biological Eye R [id number] FDA Start: 11-02-2020 CL CLOSURE DEVIC E [...] /State Functional Status Date Assessment Result Facility 09-24-2024 Functional Status N/A [facility] 08-27-2024 Functional Status N/A [facility] 08-19-2024 Functional Status N/A [facility] 08-12-2024 Functional Status N/A [facility] 07-02-2024 Functional Status N/A [facility] 06-24-2024 Functional Status N/A [facility] 06-17-2024 Functional Status N/A [facility] 06-12-2024 Functional Status N/A [facility] 05-02-2024 Functional Status N/A [facility] 03-14-2024 Functional Status N/A [facility] 01-25-2024 Functional Status N/A [facility] 01-09-2024 Functional Status N/A [facility] 12-14-2023 Functional Status N/A [facility] 12-10-2023 Functional Status N/A [facility] 11-09-2023 Functional Status N/A [facility] 10-08-2023 Functional Status N/A [facility] 09-14-2023 Functional Status N/A [facility] 08-07-2023 Functional Status N/A [facility] 05-11-2023 Functional Status N/A [facility] 05-01-2023 Functional Status N/A [facility] 03-19-2023 Functional Status N/A [facility] 03-12-2023 Functional Status N/A [facility] 11-28-2022 Functional Status N/A [facility] 05-30-2022 Functional Status N/A [facility] 05-05-2022 Functional Status N/A [facility] Clinical Notes 12-29-2020 to 11-12-2024 Jr. Andrew Garay, DO - 11/12/2024 10:15 AM EST Note Date & Type Note Facility 11-12-2024 History of Presen t illness Narrative Images from the original note were not included. HISTORY OF PRESENT ILLNESS: EST PT Ridge Roland is an 79 y.o. @ male. (R) KNEE (EST PT W/ JEAN) RECHECK (R) KNEE ; S/P (R) TKA 02/14/22 (2YRS 9MNS) XRAY TODAY IN EPIC 11/12/2024 XRAYS, 02/25/24 IN CHANGE / EPIC NO BONE SCAN NO MDP / PREDNISONE NO RECENT PHYSICAL THERAPY PREVIOUS PAIN MGMT - DR SANCHEZ (LBP / NEUROPATHY) PAIN IS DIFFUSE. NOTES 80% ROM ; SOME WEAKNESS / INSTABILITY - USES WALKER TO AMBULATE. DENIES ANY SWELLING. TAKING TYLENOL / ETODOLAC - DENIES ANY RELIEF ; ALSO USES VOLTAREN GEL. TYLENOL ARTHRITIS PRN. STIMULUS IMPLANT FOR NERVE PAIN. WEARING DROP FOOT BRACE. NO LONGER TAKING PLAVIX - H/O STENTS (L) KNEE (EST PT W/ LITZY) RECHECK (L) KNEE ; S/P HEP XRAYS, 05/02/24 @ [facility] NO MRI NO MDP / PREDNISONE NO CORTISONE INJ NO PHYSICAL THERAPY PREVIOUS PAIN MGMT - DR SANCHEZ (LBP / NEUROPATHY) PAIN DIFFUSED. USES WALKER TO AMBULATE- DENIES INSTABILITY- +STIFFNESS WITH PROLONG SITTING- +TYLENOL/ETODOLAC. WEARING DROP FOOT BRACE. H/O INJURY : DOI 05/02/24 - PT NOTES PAIN AFTER FALLING ALLERGIES: Allergies Allergen Reactions Duloxetine Hcl Hallucinations Hydrocodone-Acetaminophen Hallucinations Oxycodone Other Reaction(s): Hallucinations HOME MEDICATIONS: Current Outpatient Medications Medication Instructions allopurinol (Zyloprim) 300 MG tablet Every 24 hours amLODIPine (Norvasc) 5 MG tablet Every 24 hours amoxicillin (Amoxil) 500 MG tablet 4 tabs PO once 30-60 mins before procedure with food Ascorbic Acid (Vitamin C) 500 MG capsule as directed Orally aspirin 81 MG chewable tablet Every 24 hours atorvastatin (Lipitor) 40 MG tablet Every 24 hours calcium carbonate 1500 (600 Ca) MG tablet Every 24 hours etodolac (Lodine) 500 MG tablet Every 12 hours hydroCHLOROthiazide (HYDRODiuril) 25 MG tablet Every 24 hours KLOR-CON 20 MEQ ER tablet losartan (Cozaar) 25 MG tablet Take by mouth Lutein-Zeaxanthin 25-5 MG capsule Orally mirabegron ER (MYRBETRIQ) 50 mg, Daily Potassium 75 MG tablet Potassium traMADol (Ultram) 50 MG tablet TAKE 1 TABLET BY MOUTH EVERY 8 HOURS NEEDED FOR POSTPROCEDURE PAIN FOR 5 DAYS trospium (Sanctura) 20 MG tablet Every 12 hours PHYSICAL EXAM: Knee Musculoskeletal Exam Gait Gait is normal. Inspection Leg length disparity: no discrepancy Right Erythema: none Effusion: none Edema: none Ecchymosis: none Deformity: none Alignment: normal Previous incision: anterolateral Incision: well-healed Palpation Right Right knee palpation is unremarkable. Increased warmth: none Masses: none Tenderness: none Range of Motion Right Right knee range of motion is normal and full. Active extension: 0 Passive extension: 0 Active flexion: 120 Passive flexion: 120 Strength Right Right knee strength is normal. Extension: 5/5. Flexion: 5/5. Instability Right Instability signs: none - stable Varus stress grade: normal Valgus stress grade: normal Neurovascular Right Right knee neurovascular exam is normal. Pulses - PT: normal Posterior tibial: 2+ Capillary refill: warm and well-perfused Special Signs Right Right knee special signs are normal. Patellar apprehension: none General Constitutional: appears stated age Labored breathing: no Psychiatric: normal mood and affect Neurological: alert Skin: intact Lymphadenopathy: none Vitals: There is no height or weight on file to calculate BMI. Tobacco Use: Medium Risk (11/12/2024) Patient History Smoking Tobacco Use: Former Smokeless Tobacco Use: Never Passive Exposure: Not on file Alcohol Use: Not on file IMAGING: XR knee 1 or 2 views right Imaging Result: AP and lateral of right knee showed surgical position and alignment of prosthetic components without evidence of loosening or wear to the femoral, tibial, or patellar components. The alignment appeared to be anatomic. There was no evidence of accelerated or asymmetric wear to the patellar button or tibial tray. There was no evidence of fracture and/or dislocation. Impression: Unremarkable right total knee arthroplasty. Procedures Orders Placed This Encounter Procedures XR knee 1 or 2 views right Order Specific Question: Reason for exam: Answer: PAIN ASSESSMENT: ICD-10-CM 1. Swelling of joint of right knee M25.461 2. Right knee pain, unspecified chronicity M25.561 XR knee 1 or 2 views right PLAN: We have discussed his right knee x-rays with him today at length. He states most of the symptoms are in his low back. He very rarely has any knee symptoms and is pleased with his progress. We have recommended an appointment with Dr. Mcdonald at the [facility] for orthopedic spine consult. We'll see him back in one year for his knee. Operative lower extremity was noted to be neurovascularly intact. Patient was able to motor feet toes and ankles in all anatomic planes bilaterally with 5 out of 5 strength. Operative knee's patellar tracking was optimal and quad/ham strength was 5 out of 5 to operative lower extremity. There was no varus valgus, anterior-posterior, or rotatory instability noted to the operative knee. Swelling was well controlled, patella was not ballotable and compartments were soft to the operative lower extremity. Dorsalis pedis and posterior tibial pulses were present and equal bilaterally. There was no evidence of infection or ascending lymphangitis to operative lower extremity. Sensation to light touch was intact to all dermatomes to bilateral lower extremities. Negative Homans and negative Jack were noted bilaterally to lower extremities. Incision was healing without evidence of infection Questions answered in laymen terms at the bedside. The diagnosis, home exercise plan and any ongoing restrictions/ recommendations reviewed. If unable to be reached in office, I recommend evaluation at nearest Emergency Room if any symptoms worsened or new symptoms develop for requiring urgent evaluation. documented in this encounter [facility] 09-24-2024 Evaluation + Plan note Extrac yina from: Title:chronic pain Author:Bert Huang DO Date:09/24/24 Patient is presenting with h istory of lumbar postlaminectomy pain syndrome, lumbar spondyloarthropathy, lumbar radiculopathy. He is doing very well with his stimulator and feels that this is helping by least 50% in reducing his pain. However he did have questions in regard to his functionality as well as ensuring that the device is turned on and using the remote. We did provide education today and we will provide further education and contact the [employer] representatives for additional support. He rates his back pain as a 10/10 in the morning with predominantly stiffness but is a 3/10 right now and predominantly 3/10 throughout the day. He has right knee pain that is sometimes a 5/10 severity. He has had a total knee arthroplasty on the right but has persistent pain. He has followed up with his orthopedic surgeon regarding this and there does not appear to be any issues with the implant per his report. For the stiffness in the morning we discussed that this is myofascial in nature and we can prescribe baclofen for his back issue. For his right knee we discussed a genicular nerve block which we may be reasonable as well. We also discussed his pregabalin he did not tolerate this medication we discussed discontinuing this medication. ZACARIAS Score: 30% PHQ-2: 2 Patient denies any symptoms of progressively worsening upper/lower extremity weakness, progressively worsening gait abnormality, new onset bowel/bladder incontinence/ urinary retention, or saddle anesthesia. No new or worsening symptoms of fever, chills, night sweats. 14 Point Review of systems negative unless otherwise noted. General: No acute distress. Patient appears well-nourished. HEENT: Head is normocephalic and external ears are normal in appearance. Cardiovascular: No signs of poor perfusion and no peripheral edema Pulmonary: Nonlabored breathing, symmetric chest movement. GI: Abdomen nondistended Integumentary: No lesions Neurologic: Alert, oriented x3. 5/5 strength grossly in the bilateral upper extremities. Sensation intact to light touch in the bilateral upper extremities. MSK/Special Testing: Negative Daily sign bilaterally, mild tenderness to palpation diffusely of the right knee. Mild tenderness palpation hypertonicity in lumbar paraspinal musculature. History, physical examination, and personal review of pertinent imaging results indicate a diagnosis of: -Postlaminectomy pain syndrome -Lumbar radiculopathy -Lumbar spondyloarthropathy -Myofascial pain -Right knee pain Plan: -Discontinue pregabalin, patient not tolerate this medication -Prescribed baclofen 5 mg 3 times per day to be taken as needed for myofascial pain and stiffness in the morning -We discussed spinal cord stimulator at length and reeducated him on use of the remote, we will follow-up with the [employer] ham for further education -Will schedule right genicular nerve block under fluoroscopic guidance in anticipation of radiofrequency ablation of effective -Follow-up soon as able post genicular Patient was counseled on the above diagnosis and treatment, all questions were answered and patient agrees to adhere to the plan above. Risk and benefits of appropriate procedures and medications were reviewed as well with patient, who voiced understanding and agreeance. Patient was counseled on appropriate use of opioids if prescribed or renewed today and naloxone was offered to patient if opioids were prescribed or maintained at this visit. PHQ-2 scoring reviewed with patient and discussed seeking treatment for depression or mood disorder as appropriate. Patient was counseled on smoking cessation and/or continuing to abstain from nicotine/tobacco products as appropriate based on history; as smoking/nicotine can contribute to increased pain overall and decreased wound healing. Patient counseled on maintaining a healthy BMI as part of the total treatment of their pain and to reduce stress/strain on joints. Patient invited to return or call with any questions or concerns that arise. [facility] 11-20-2024 NoteConsultation Note Patient is presenting with history of lumbar postlaminectomy pain syndrome, lumbar spondyloarthropathy, lumbar radiculopathy. He is doing very well with his stimulator and feels that this is helping by least 50% in reducing his pain. However he did have questions in regard to his functionality as well as ensuring that the device is turned on and using the remote. We did provide education today and we will provide further education and contact the [employer] representatives for additionalsupport. He rates his back pain as a 10/10 in the morning with predominantly stiffness but is a 3/10 right now and predominantly 3/10 throughout the day. He has right knee pain that is sometimes a 5/10 severity. He has had a total knee arthroplasty on the right but has persistent pain. He has followed up with his orthopedic surgeon regarding this and there does not appear to be any issues with the implant per his report. For the stiffness in the morning we discussed that this is myofascial in nature and we can prescribe baclofen for his back issue. For his right knee we discussed a genicular nerve block which we may be reasonable as well. We also discussed his pregabalin he did not toleratethis medication we discussed discontinuing this medication. ZACARIAS Score: 30% PHQ-2: 2 Patient denies any symptoms of progressively worsening upper/lower extremity weakness, progressively worsening gait abnormality, new onset bowel/bladder incontinence/ urinary retention, or saddle anesthesia. No new or worsening symptoms of fever, chills, night sweats. 14 Point Review of systems negative unless otherwise noted. General: No acute distress. Patient appears well-nourished. HEENT: Head is normocephalic and external ears are normal in appearance. Cardiovascular: No signs of poor perfusion and no peripheral edema Pulmonary: Nonlabored breathing, symmetric chest movement. GI: Abdomen nondistended Integumentary: No lesions Neurologic: Alert, oriented x3. 5/5 strength grossly in the bilateral upper extremities. Sensation intact to light touch in the bilateral upper extremities. MSK/Special Testing: Negative Daily sign bilaterally, mild tenderness to palpation diffusely of the right knee. Mild tenderness palpation hypertonicity in lumbar paraspinal musculature. History, physical examination, and personal review of pertinent imaging results indicate a diagnosis of: -Postlaminectomy pain syndrome -Lumbar radiculopathy -Lumbar spondyloarthropathy -Myofascial pain -Right knee pain Plan: -Discontinue pregabalin, patient not tolerate this medication -Prescribed baclofen 5 mg 3 times per day to be taken as needed for myofascial pain and stiffness in the morning -We discussed spinal cord stimulator at length and reeducated him on use of the remote, we will follow-up with the [employer] for further education -Will schedule right genicular nerve block under fluoroscopic guidance in anticipation of radiofrequency ablation of effective -Follow-up soon as able post genicular Patient was counseled on the above diagnosis and treatment, all questions were answered and patientagrees to adhere to the plan above. Risk and benefits of appropriate procedures and medications were reviewed as well with patient, who voiced understanding and agreeance. Patient was counseled on appropriate use of opioids if prescribed or renewed today and naloxone was offered to patient if opioids were prescribed or maintained at this visit. PHQ-2 scoring reviewed with patient and discussed seeking treatment for depression or mood disorder as appropriate. Patient was counseled on smoking cessation and/or continuing to abstain from nicotine/tobacco products as appropriate based on history; as smoking/nicotine can contribute to increased pain overall and decreased wound healing. Patient counseled on maintaining a healthy BMI as part of the total treatment of their pain and to reduce stress/strain on joints. Patient invited to return or call with any questions or concerns that arise.[facility] SystemComment on above:Result Comment: Electronically Signed By: Bert Huang DO.amy\Date and Time Signed: 09/24/24 09:48 [id number] Evaluation + Plan noteExtracted from: Title:Pain Managment Follow up Author:Stephenie Claudio Date:08/27/24 Impression and Plan Patient is a 78-year-old male following up today after undergoing a full spinal cord stimulator implant on 08/19/2024 that he states at this time has given him 60% relief. He is feeling better. He is doing better. He is more comfortable. He is happier. His quality of life is improved. He is here today to have his first appointment where his wound was checked and a new clean and dry dressing was placed and to have a reprogramming done. He will work with the spinal cord stimulator underwriting account representative and follow-up in a few weeks for reevaluation. He would like to restart physical therapy. Restrictions were discussed. Showering and wound care was discussed. Follow-up as above mention. ZACARIAS score: 48%. Future Appointments Appointment Date:09/24/2024 08:45:00 AM Scheduled Provider:Bert Huang DO Location:.[facility] Appointment Type:Pain Management - Follow Up (FT) [facility] 10-23-2024 NoteConsultation Note Patient: RIDGE ROLAND Age: 78 years Sex: Male : 1945 Associated Diagnoses: None Author: Stephenie Barrios PA-C Subjective Chief complaint 08/27/2024 10:58 EDT lower back pain . Patient is a 78-year-old male. He presents today for follow-up after undergoing a full spinal cord stimulator implant. This was done on 08/19/2024 and at this time has given him 60% relief. He is here today for his first postoperative appointment and to have a reprogramming with the spinal cord stimulator underwriting account representative. He has some pain that he rates a 2/10 but he states that overall, things aregoing well. He is feeling better. Health Status Allergies: Allergic Reactions (Selected) Severity Not Documented Cymbalta- Hallucinations. Oxybutynin- Hallucinations. OxyCODONE- Visual hallucinations., Allergies (3) Active Severity Reaction oxyCODONE Visual hallucinations oxybutynin Hallucinations Cymbalta Hallucinations Current medications: (Selected) Prescriptions Prescribed cephalexin 500 mg Cap: 500 mg = 1 cap(s), Oral, q12hr, # 20 cap(s), Refills(s) 0, Pharmacy: [facility]/pharmacy #[id number], 193, cm, 08/19/24 7:28:00 EDT, Height/Length Dosing, 106.9, kg, 07/02/24 9:05:00 EDT, Weight Dosing Documented Medications Documented Calcium 600+D oral tablet: 1 tab(s), Oral, Daily, Prophylaxis Klor-Con M20: 1 tab, Oral, Daily, Refills(s) 0, Prophylaxis Lipitor 40 mg Tab: 40 mg = 1 tab(s), Oral, Daily, Refills(s) 0, High cholesterol Tylenol: Oral, Refills(s) 0 Vitamin B12 1000 mcg Tab: 1,000 mcg [...] 25 mg, Oral, Daily, High blood pressure losartan 25 mg Tab: Refills(s) 0 nitroglycerin 0.4 mg sublingual Tab: PLACE 1 TABLET (0.4 MG) UNDER THE TONGUE EVERY 5 MINUTES NEEDED FOR CHEST PAIN Problem list: All Problems Hypercholesterolemia / SNOMED CT 46102371 / Confirmed Hernia, inguinal, right / SNOMED CT 937078020 / Confirmed BPH with urinary obstruction / SNOMED CT 5420100202 / Confirmed Elevated PSA / SNOMED CT 9217496351 / Confirmed Impotence / SNOMED CT 2186403563 / Confirmed Urinary frequency / SNOMED CT 949504269 / Confirmed Nocturia / SNOMED CT 744053315 / Confirmed Weak urinary stream / SNOMED CT 105388812 / Confirmed Gross hematuria / SNOMED CT 055025920 / Confirmed Anticoagulated / SNOMED CT 083058278 / Confirmed Urge incontinence / SNOMED CT 636253678 / Confirmed Chronic prostatitis / SNOMED CT 36511176 / Confirmed Dysuria / SNOMED CT 47326057 / Confirmed Urinary retention / SNOMED CT 485913847 / Confirmed BMI 31.0-31.9,adult / SNOMED CT 556392811 / Confirmed Incomplete bladder emptying / SNOMED CT 685174160 / Confirmed Post-void dribbling / SNOMED CT 879205226 / Confirmed Incontinence without sensory awareness / SNOMED CT 5529437595 / Confirmed At risk for falls / SNOMED CT 228418949 / Possible ED (erectile dysfunction) / SNOMED CT 4007870440 / Confirmed Leaking of urine / SNOMED CT 7338632974 / Confirmed Urinary incontinence / SNOMED CT 4080194519 / Confirmed Prostate cancer screening / SNOMED CT 985620996 / Confirmed Resolved: Hypertension / SNOMED CT 3802150163 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 Eye: Normal conjunctiva. HENT: Normocephalic, Normal hearing. Cardiovascular: No edema. Musculoskeletal Normal range of motion. Normal strength. 5/5 lower extremity strength other than bilateral lower extremities which are not ranged due to being in braces. Patient does ambulate with a walker Integumentary: Warm, Dry, [place]. Incision is healing well. A new clean and dry dressing was placed Neurologic: Alert, Oriented. Psychiatric: Cooperative, Appropriate mood & affect. 14 point review of systems was negative unless otherwise noted. Impression and Plan Patient is a 78-year-old male following up today after undergoing a full spinal cord stimulator implant on 08/19/2024 that he states at this time has given him 60% relief. He is feeling better. He isdoing better. He is more comfortable. He is happier. His quality of life is improved. He is here today to have his first appointment where his wound was checked and a new clean and dry dressing was pl aced and to have a reprogramming done. He will (more content not included)... [facility] SystemComment on above:Result Comment: Electronically Signed By: Stephenie Barrios PA-C\.amy\Date and Time Signed: 08/27/24 11:19 EDT 08-19-2024 Evaluation + Plan noteExtracted from: Title:ANES Post-operative Note - General Author: Liliana Alcala CRNA Date:08/19/24 Plan Transfer/Discharge: Transfer/Discharge Discharge when meets criteria ( From PACU to Ambulatory Surgery Unit, and To home ). Extracted from: Title:Spinal cord stimulator implant Author:Bert Arriaza DO Date:08/19/24 Diagnosis: Lumbar postlamine ctomy pain syndrome M96.1, lumbar stenosis with neurogenic claudication M48.062, G84.9 chronic pain syndrome Procedure: Implantation percutaneous spinal cord stimulator neuro electrodes x 2, implantation of spinal cord stimulator neuroreceiver/pulse generator, complex analysis of neurostimulator Anesthesia: MAC Complications: None Doctor Of Naprapathy: cutting table operator first provided Implanted devices: -Neuroreceiver/pulse generator: [employer] wavewriter alpha 16 -Neuroelectrodes: two avista 50cm 8 contact lead -Electrode anchors: two clik X MRI anchors Description: After informed consent was obtained, antibiotics were administered including 2 g of cefazolin. The patient was then brought to the procedure area and placed in the prone position. Patient was placed on the monitors then monitored with anesthesia. A timeout was then performed indicating the appropriate procedure and patient. Next, the patient was prepped using a ChloraPrep solution and sterile drapes were applied, sterile gowns and gloves were utilized throughout the whole case. The needle trajectory overlying the T11/12 interlaminar space was anesthetized with 2% lidocaine with epi as well as the planned incision site. A 5 cm incision was then made in a longitudinal paramedian approach on the left side lumbar spine along the needle trajectory using an 11 blade. A touhy needle was then advanced into the epidural space with confirmation using glass [id number] syringe and lead was threaded at T11/12 . A second Touhy was then advanced underneath the initial Touhy. Next we proceeded with epidural placement of both of Avista 50 cm 8 contact leads advanced to the bottom of T7 vertebral level. AP and lateral radiograph confirmed posterior placement. The patient was then awoken and complex programming was performed to ensure adequate coverage to her painful regions. Once complete coverage of her painful areas was confirmed, the patient's anesthetic was deepened. We then irrigated the incision with sterile saline at the point of entry of her stimulator leads, next clik anchors were utilized to affix the stimulator leads to the paraspinous fascia/ligament. Fixate sutures were used to attach the anchors to appropriate fascial tissue. Hemostasis was achieved using electrocautery. The initial incision was extended to about 8 cm in length caudally, electrocautery was used to provide hemostasis to the incision site, blunt dissection was then performed by hand to create a pocket at the layer of Hussein's fascia to the left lateral side of the incision. Next, after creation of the pocket, the wound was irrigated with sterile saline. The hhgregg quality analyst/technical writer alpha 16 pulse generator kit was then attached to the spinal cord stimulator leads after a Touhy needle was used to create a channel between the 2 incisions to allow passage of both spinal cord stimulator leads. Once the leads were affixed to the generator, it was confirmed the generator was functioning appropriately and receiving appropriate information from the spinal cord stimulator leads. Then, two 2-0 silk sutures were used to affix the spinal cord stimulator generator into the pocket and the stimulator leads were coiled underneath the generator within the pocket. Then with the help of the cutting table operator first both wounds were closed in a stepwise fashion using 0 Vicryl for the deep fascial layer, 2-0 Vicryl was then used for the superficial fascial layer and a running subcuticular 3-0 Vicryl and Monocryl was used for closure of the skin layer. Skin glue was then applied. After drying, this was covered with a Telfa dressing covered and antibiotic impregnated petroleum jelly. A Tegaderm was then placed to cover the area. The patient was then transported the recovery area in stable condition without apparent complication. Postoperative valuation revealed 5/5 muscle strength in the bilateral lower extremities. Follow-up: We will plan to see the patient in 1-2 weeks or sooner if any issues arise, the patient agreed to adhere to the prescribed plan regarding her spinal cord stimulator trial. Postoperative pain medication and prophylactic antibiotics were provided. Addendum by Cheryl Huang DO, rd on August 19, 2024 10:38 EDT Correction to above: No cutting table operator first was utilized during this case. Closure was performed by myself. Extracted from: Title:ANES Pre-operative Note 2022 Author:Liliana Alcala CRNA Date:08/19/24 Patient: RIDGE ROLAND Age: 78 years Sex: Male : 1945 Associated Diagnoses: None Author: Liliana Alcala CRNA Preoperative Information Anesthesia Preop Info: Time patient last ate or drank 08/18/2024 00:00:00. Anesthesia history: Patient history: None. Family history+: None. Informed consent: Signed by patient. Re-evaluation prior to induction: Initial evaluation reviewed: No significant change. Review of Systems Eye: Negative except as documented in history of present illness. Ear/Nose/Mouth/Throat: Negative except as documented in history of present illness. Respiratory: Negative except as documented in history of present illness. Cardiovascular: Negative except as documented in history of present illness. Musculoskeletal: Negative except as documented in history of present illness. Neurologic: Negative except as documented in history of present illness. Health Status Allergies: Allergic Reactions (Selected) Severity Not Documented Cymbalta- Hallucinations. Oxybutynin- Hallucinations. OxyCODONE- Visual hallucinations., Allergies (3) ActiveSeverityReaction oxyCODONEVisual hallucinations oxybutyninHallucinations CymbaltaHallucinations Current medications: (Selected) Inpatient Medications Ordered NS 1000 mL Soln-IV 1,000 mL: 1,000 mL, IV, 15 mL/hr, Routine, Start date 08/19/24 7:22:00 EDT, 66.7 hour(s), Total volume (mL): 1,000 cefazolin additive + Sodium Chloride 0.9% intravenous solution 50 mL: 2 gram = 1 EA, Powder-Inj, IV Piggyback, Once, Stop date 08/19/24 8:00:00 EDT, Routine, Start date 08/19/24 8:00:00 EDT, 100 mL/hr, Infuse over 30 minute(s) Documented Medications Documented Calcium 600+D oral tablet: 1 tab(s), Oral, Daily, Prophylaxis Klor-Con M20: 1 tab, Oral, Daily, Refills(s) 0, Prophylaxis Lipitor 40 mg Tab: 40 mg = 1 tab(s), Oral, Daily, Refills(s) 0, High cholesterol Tylenol: Oral, Refills(s) 0 Vitamin B12 1000 mcg Tab: 1,000 mcg [...] 25 mg, Oral, Daily, High blood pressure losartan 25 mg Tab: Refills(s) 0 nitroglycerin 0.4 mg sublingual Tab: PLACE 1 TABLET (0.4 MG) UNDER THE TONGUE EVERY 5 MINUTES NEEDED FOR CHEST PAIN, Home Medications (13) Active allopurinol 100 mg Tab 100 mg = 1 tab(s), Oral, Daily amlodipine 10 mg, Oral, Daily aspirin 81 mg oral tablet 81 mg = 1 tab(s), Oral, Daily Calcium 600+D oral tablet 1 tab(s), Oral, Daily etodolac 500 mg Tab 500 mg = 1 tab(s), Oral, BID hydrochlorothiazide 25 mg, Oral, Daily Klor-Con M20 1 tab, Oral, Daily Lipitor 40 mg Tab 40 mg = 1 tab(s), Oral, Daily losartan 25 mg Tab nitroglycerin 0.4 mg sublingual Tab Tylenol , Oral Vitamin B12 1000 mcg Tab 1,000 mcg = 1 tab(s), Oral, Daily Vitamin C 1000 mg oral tablet 1,000 mg = 1 tab(s), Oral, Daily , Medications (2) Active Scheduled: (1) ceFAZolin + Sodium Chloride 0.9% Minibag 50 mL 2 gram 1 EA, IV Piggyback, Once Continuous: (1) Sodium Chloride 0.9% 1,000 mL 1,000 mL, IV, 15 mL/hr PRN: (0) Problem list: All Problems Anticoagulated / SNOMED CT 551888253 / Confirmed At risk for falls / SNOMED CT 649455379 / Possible BMI 31.0-31.9,adult / SNOMED CT 756205762 / Confirmed BPH with urinary obstruction / SNOMED CT 7489128168 / Confirmed Chronic prostatitis / SNOMED CT 35255119 / Confirmed Dysuria / SNOMED CT 91928787 / Confirmed ED (erectile dysfunction) / SNOMED CT 8036867209 / Confirmed Elevated PSA / SNOMED CT 2735677474 / Confirmed Gross hematuria / SNOMED CT 601278004 / Confirmed Hernia, inguinal, right / SNOMED CT 311771945 / Confirmed Hypercholesterolemia / SNOMED CT 14112485 / Confirmed Impotence / SNOMED CT 2518637703 / Confirmed Incomplete bladder emptying / SNOMED CT 470592184 / Confirmed Incontinence without sensory awareness / SNOMED CT 3794656743 / Confirmed Leaking of urine / SNOMED CT 6095600671 / Confirmed Nocturia / SNOMED CT 607779082 / Confirmed Post-void dribbling / SNOMED CT 892586557 / Confirmed Prostate cancer screening / SNOMED CT 200480792 / Confirmed Urge incontinence / SNOMED CT 811023518 / Confirmed Urinary frequency / SNOMED CT 746989815 / Confirmed Urinary incontinence / SNOMED CT 0665358893 / Confirmed Urinary retention / SNOMED CT 017482483 / Confirmed Weak urinary stream / SNOMED CT 595895503 / Confirmed Resolved: Hypertension / SNOMED CT 5681664983 Resolved: 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 / SNOMED CT 015491128, Active Problems (23) Anticoagulated At risk for falls BMI 31.0-31.9,adult BPH with urinary obstruction Chronic prostatitis Dysuria ED (erectile dysfunction) Elevated PSA Gross hematuria Hernia, inguinal, right Hypercholesterolemia Impotence Incomplete bladder emptying Incontinence without sensory awareness Leaking of urine Nocturia Post-void dribbling Prostate cancer screening Urge incontinence Urinary frequency Urinary incontinence Urinary retention Weak urinary stream Histories Past Medical History: Resolved 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 Procedure history: Spinal Cord Stimulator Trial ([id number]) on 06/24/2024 at 78 Years. Comments: 07/02/2024 8:58 Marifer Alegre 60% relief Injection of sacroiliac joint using fluoroscopic guidance ([id number]) on 01/09/2024 at 78 Years. Comments: 01/25/2024 13:34 Azra Fitzgerald RN 90% relief for 4 hrs Radiofrequency ablation of nerve root of lumbar spine using fluoroscopic guidance ([id number]) on 10/08/2023 at 78 Years. Comments: 11/09/2023 11:23 Savannah Paredes RN A Bilateral L3/4+L4/5- no relief Biliateral L3/4, L4/5 MBB ([id number]) on 09/04/2023 at 77 Years. Comments: 09/14/2023 7:53 JU Kelly RN Tomasa J Bilateral L3/4, L4/5 MBB-80% relief for 1 day Bilateral L3/L4 L4/L5 MBB ([id number]) on 08/07/2023 at 77 Years. Comments: 08/28/2023 7:57 Sharee Jama RN BL L3/L4 L4/L5 MBB 85% Relief x 4 hours Caudal epidural ([id number]) on 05/29/2023 at 77 Years. Comments: 06/18/2023 10:04 Sharee Jama RN Caudal john 50% relief L3/4 Medial Branch Blocks ([id number]) on 05/01/2023 at 77 Years. Comments: 05/11/2023 9:48 Savannah Mari RN bilateral 75% relief for 2 hours Injection of facet joint using fluoroscopic guidance ([id number]) on 03/12/2023 at 77 Years. Comments: 03/19/2023 9:18 Myranda Butelr RN pt changed amt of relief to 80% x 4 hr. 03/19/2023 8:54 Myranda Butler RN L3/4 MBB- 50% relief x 4 hr Cysto/Botox 100 units ([id number]) on 05/11/2022 at 76 Years. Blepharoplasty ([id number]) on 02/07/2021 at 75 Years. Cystourethroscopy with dilation of urethral stricture ([id number]) on 12/02/2020 at 75 Years. Right eye cataract extraction and insertion of intraocular lens ([id number]) on 11/02/2020 at 75 Years. TURP - Transurethral resection of prostate ([id number]) on 04/28/2020 at 74 Years. Cystourethroscopy with dilation of urethral stricture ([id number]) on 12/08/2019 at 74 Years. back surgery on 10/16/2019 at 74 Years. Comments: 12/02/2019 9:22 EST - Marine Dempsey 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3 Placement of stent in cardiac conduit ([id number]) on 06/16/2019 at 73 Years. inguinal hernia repair in 2018 at 72 Years. TURP - Transurethral resection of prostate ([id number]) on 07/12/2016 at 70 Years. Cystoscopy ([id number]) on 06/23/2016 at 70 Years. Evolve laser of prostate ([id number]) on 03/14/2013 at 67 Years. Urodynamics ([id number]) on 02/13/2013 at 67 Years. Back ([id number]). Arthroscopy of knee joint ([id number]). CE - Cataract extraction ([id number]). Release of trigger finger ([id number]). Social History Social & Psychosocial Habits Alcohol 08/12/2024 Type: Liquor Frequency: 3-5 times per week 08/12/2024 Use: Current Frequency: Daily 08/12/2024 Use: Current Frequency: Daily Comment: 1-2 shot per day - 03/14/2024 09:48 - Robin JENNINGS, Tomasa Davidson Substance Abuse 4Risk Assessment: Denies Substance Abuse Tobacco 08/12/2024isk Assessment: Denies Tobacco Use 08/12/2024 Tobacco Use: Former smoker, quit more Smokeless tobacco use: Never Type: Cigarettes Concerns about tobacco use in household: No Smoking Cessation Yes Comment: pt quit smoking in 1983 - 12/02/2019 09:22 - Marine Dempsey . Physical Examination Vital Signs 08/19/2024 7:28 EDT Heart Rate Monitored 65 bpm SpO2 96 % 08/19/2024 7:27 EDT Temperature Axillary 36.4 DegC 08/19/2024 7:27 EDT Systolic Blood Pressure 133 mmHg Diastolic Blood Pressure 83 mmHg Mean Arterial Pressure, Monitered 100 mmHg 08/19/2024 7:24 EDT Respiratory Rate 18 br/min Airway: Mallampati classification: II (soft palate, fauces, uvula visible). Respiratory: adequate air exchange. Cardiovascular: Regular rhythm. Plan [place] [employer] (ASA) physical status classification: Class III. Anesthetic Preoperative Plan: Anesthesia General. Addendum by Oseas Alcala CRNA on August 19, 2024 7:42 EDT Change title of note to progress note Future Appointments Appointment Date:08/27/2024 11:15:00 AM Scheduled Provider:Stephenie Barrios PA-C Location:.[facility] Appointment Type:Pain Management - Follow Up (FT) [facility] 10-15-2024 NoteProgress Note-Physician Patient: RIDGE ROLAND Age: 78 years Sex: Male : 1945 Associated Diagnoses: None Author: Liliana Alcala CRNA Postoperative Information Postoperative disposition: Postoperative disposition: Home. Optimetrix number: Optimetrix number [id number]. Anesthetic utilized: General. Health Status Allergies: Allergic Reactions (Selected) Severity Not Documented Cymbalta- Hallucinations. Oxybutynin- Hallucinations. OxyCODONE- Visual hallucinations. Physical Examination Vital Signs 08/19/2024 10:24 EDT Heart Rate Monitored 79 bpm SpO2 98 % 08/19/2024 10:24 EDT Systolic Blood Pressure 135 mmHg Diastolic Blood Pressure 72 mmHg Mean Arterial Pressure, Monitered 93 mmHg 08/19/2024 10:24 EDT Respiratory Rate 16 br/min 08/19/2024 10:08 EDT Heart Rate Monitored 77 bpm SpO2 95 % 08/19/2024 10:08 EDT Respiratory Rate 16 br/min 08/19/2024 10:07 EDT Systolic Blood Pressure 125 mmHg Diastolic Blood Pressure 86 mmHg Mean Arterial Pressure, Monitered 99 mmHg 08/19/2024 10:03 EDT Systolic Blood Pressure 120 mmHg mmHg Diastolic Blood Pressure 99 mmHg mmHg 08/19/2024 10:00 EDT Heart Rate Monitored 83 bpm bpm Respiratory Rate 18 br/min br/min Systolic Blood Pressure 111 mmHg mmHg Diastolic Blood Pressure 75 mmHg mmHg SpO2 97 % % 08/19/2024 9:57 EDT Systolic Blood Pressure 106 mmHg mmHg Diastolic Blood Pressure 70 mmHg mmHg 08/19/2024 9:55 EDT Heart Rate Monitored 84 bpm bpm Respiratory Rate 18 br/min br/min SpO2 98 % % 08/19/2024 9:54 EDT Systolic Blood Pressure 103 mmHg mmHg Diastolic Blood Pressure 73 mmHg mmHg 08/19/2024 9:51 EDT Systolic Blood Pressure 94 mmHg mmHg Diastolic Blood Pressure 78 mmHg mmHg 08/19/2024 9:50 EDT Heart Rate Monitored 80 bpm bpm Respiratory Rate 19 br/min br/min SpO2 98 % % 08/19/2024 9:48 EDT Systolic Blood Pressure 89 mmHg mmHg Diastolic Blood Pressure 62 mmHg mmHg 08/19/2024 9:45 EDT Heart Rate Monitored 80 bpm bpm Respiratory Rate 16 br/min br/min Systolic Blood Pressure 112 mmHg mmHg Diastolic Blood Pressure 60 mmHg mmHg SpO2 99 % % 08/19/2024 9:42 EDT Systolic Blood Pressure 114 mmHg mmHg Diastolic Blood Pressure 71 mmHg mmHg 08/19/2024 9:40 EDT Heart Rate Monitored 80 bpm bpm Respiratory Rate 15 br/min br/min Systolic Blood Pressure 117 mmHg mmHg Diastolic Blood Pressure 67 mmHg mmHg SpO2 98 % % 08/19/2024 9:39 EDT Systolic Blood Pressure 78 mmHg mmHg Diastolic Blood Pressure 64 mmHg mmHg 08/19/2024 9:36 EDT Systolic Blood Pressure 111 mmHg mmHg Diastolic Blood Pressure 65 mmHg mmHg 08/19/2024 9:35 EDT Heart Rate Monitored 75 bpm bpm Respiratory Rate 17 br/min br/min SpO2 98 % % 08/19/2024 9:33 EDT Systolic Blood Pressure 111 mmHg mmHg Diastolic Blood Pressure 61 mmHg mmHg 08/19/2024 9:30 EDT Heart Rate Monitored 73 bpm bpm Respiratory Rate 17 br/min br/min Systolic Blood Pressure 90 mmHg mmHg Diastolic Blood Pressure 61 mmHg mmHg SpO2 99 % % 08/19/2024 9:27 EDT Systolic Blood Pressure 102 mmHg mmHg Diastolic Blood Pressure 56 mmHg mmHg 08/19/2024 9:25 EDT Heart Rate Monitored 74 bpm bpm Respiratory Rate 14 br/min br/min SpO2 98 % % 08/19/2024 9:24 EDT Systolic Blood Pressure 100 mmHg mmHg Diastolic Blood Pressure 59 mmHg mmHg 08/19/2024 9:21 EDT Systolic Blood Pressure 110 mmHg mmHg Diastolic Blood Pressure 65 mmHg mmHg 08/19/2024 9:20 EDT Heart Rate Monitored 75 bpm bpm Respiratory Rate 15 br/min br/min SpO2 98 % % 08/19/2024 9:18 EDT Systolic Blood Pressure 105 mmHg mmHg Diastolic Blood Pressure 59 mmHg mmHg 08/19/2024 9:15 EDT Heart Rate Monitored 77 bpm bpm Respiratory Rate 15 br/min br/min Systolic Blood Pressure 115 mmHg mmHg Diastolic Blood Pressure 69 mmHg mmHg SpO2 97 % % 08/19/2024 9:12 EDT Systolic Blood Pressure 128 mmHg mmHg Diastolic Blood Pressure 93 mmHg mmHg 08/19/2024 9:10 EDT Heart Rate Monitored 75 bpm bpm Respiratory Rate 17 br/min br/min SpO2 97 % % 08/19/2024 9:09 EDT Systolic Blood Pressure 109 mmHg mmHg Diastolic Blood Pressure 65 mmHg mmHg 08/19/2024 9:06 EDT Systolic Blood Pressure 110 mmHg mmHg Diastolic Blood Pressure 70 mmHg mmHg 08/19/2024 9:05 EDT Heart Rate Monitored 78 bpm bpm Respiratory Rate 19 br/min br/min SpO2 97 % % 08/19/2024 9:03 EDT Systolic Blood Pressure 92 mmHg mmHg Diastolic Blood Pressure 69 mmHg mmHg 08/19/2024 9:00 EDT Heart Rate Monitored 67 bpm bpm Respiratory Rate 14 br/min br/min Systolic Blood Pressure 101 mmHg mmHg Diastolic Blood Pressure 65 mmHg mmHg SpO2 98 % % 08/19/2024 8:57 EDT Systolic Blood Pressure 110 mmHg mmHg Diastolic Blood Pressure 58 mmHg mmHg 08/19/2024 8:55 EDT Heart Rate Monitored 63 bpm bpm Respiratory Rate 12 br/min br/min SpO2 98 % % 08/19/2024 8:54 EDT Systolic Blood Pressure 103 mmHg mmHg Diastolic Blood Pressure 60 mmHg mmHg 08/19/2024 8:51 EDT Systolic Blood Pressure 96 mmHg mmHg Diastolic Blood Pressure 62 mm (more content not included)...[facility] SystemComment [facility] above:Result Comment: Electronically Signed By: Liliana Alcala CRNA\.br\Date and Time Signed: 08/19/24 10:25 [id number] Note Progress Note-Physician Patient: RIDGE ROLAND Age: 78 years Sex: Male : 1945 Associated Diagnoses: None Author: Liliana Alcala CRNA Preoperative Information Anesthesia Preop Info: Time patient last ate or drank 08/18/2024 00:00:00. Anesthesia history: Patient history: None. Family history+: None. Informed consent: Signed by patient. Re-evaluation prior to induction: Initial evaluation reviewed: No significant change. Review of Systems Eye: Negative except as documented in history of present illness. Ear/Nose/Mouth/Throat: Negative except as documented in history of present illness. Respiratory: Negative except as documented in history of present illness. Cardiovascular: Negative except as documented in history of present illness. Musculoskeletal: Negative except as documented in history of present illness. Neurologic: Negative except as documented in history of present illness. Health Status Allergies: Allergic Reactions (Selected) Severity Not Documented Cymbalta- Hallucinations. Oxybutynin- Hallucinations. OxyCODONE- Visual hallucinations., Allergies (3) Active Severity Reaction oxyCODONE Visual hallucinations oxybutynin Hallucinations Cymbalta Hallucinations Current medications: (Selected) Inpatient Medications Ordered NS 1000 mL Soln-IV 1,000 mL: 1,000 mL, IV, 15 mL/hr, Routine, Start date 08/19/24 7:22:00 EDT, 66.7hour(s), Total volume (mL): 1,000 cefazolin additive + Sodium Chloride 0.9% intravenous solution 50 mL: 2 gram = 1 EA, Powder-Inj, IVPiggyback, Once, Stop date 08/19/24 8:00:00 EDT, Routine, Start date 08/19/24 8:00:00 EDT, 100 mL/hr, Infuse over 30 minute(s) Documented Medications Documented Calcium 600+D oral tablet: 1 tab(s), Oral, Daily, Prophylaxis Klor-Con M20: 1 tab, Oral, Daily, Refills(s) 0, Prophylaxis Lipitor 40 mg Tab: 40 mg = 1 tab(s), Oral, Daily, Refills(s) 0, High cholesterol Tylenol: Oral, Refills(s) 0 Vitamin B12 1000 mcg Tab: 1,000 mcg [...] 25 mg, Oral, Daily, High blood pressure losartan 25 mg Tab: Refills(s) 0 nitroglycerin 0.4 mg sublingual Tab: PLACE 1 TABLET (0.4 MG) UNDER THE TONGUE EVERY 5 MINUTES NEEDED FOR CHEST PAIN, Home Medications (13) Active allopurinol 100 mg Tab 100 mg = 1 tab(s), Oral, Daily amlodipine 10 mg, Oral, Daily aspirin 81 mg oral tablet 81 mg = 1 tab(s), Oral, Daily Calcium 600+D oral tablet 1 tab(s), Oral, Daily etodolac 500 mg Tab 500 mg = 1 tab(s), Oral, BID hydrochlorothiazide 25 mg, Oral, Daily Klor-Con M20 1 tab, Oral, Daily Lipitor 40 mg Tab 40 mg = 1 tab(s), Oral, Daily losartan 25 mg Tab nitroglycerin 0.4 mg sublingual Tab Tylenol , Oral Vitamin B12 1000 mcg Tab 1,000 mcg = 1 tab(s), Oral, Daily Vitamin C 1000 mg oral tablet 1,000 mg = 1 tab(s), Oral, Daily , Medications (2) Active Scheduled: (1) ceFAZolin + Sodium Chloride 0.9% Minibag 50 mL 2 gram 1 EA, IV Piggyback, Once Continuous: (1) Sodium Chloride 0.9% 1,000 mL 1,000 mL, IV, 15 mL/hr PRN: (0) Problem list: All Problems Anticoagulated / SNOMED CT 784348948 / Confirmed At risk for falls / SNOMED CT 641801241 / Possible BMI 31.0-31.9,adult / SNOMED CT 619896766 / Confirmed BPH with urinary obstruction / SNOMED CT 9550562927 / Confirmed Chronic prostatitis / SNOMED CT 53370930 / Confirmed Dysuria / SNOMED CT 97783365 / Confirmed ED (erectile dysfunction) / SNOMED CT 1655377625 / Confirmed Elevated PSA / SNOMED CT 1927549075 / Confirmed Gross hematuria / SNOMED CT 246143689 / Confirmed Hernia, inguinal, right / SNOMED CT 857713283 / Confirmed Hypercholesterolemia / SNOMED CT 39166826 / Confirmed Impotence / SNOMED CT 5946148179 / Confirmed Incomplete bladder emptying / SNOMED CT 250345565 / Confirmed Incontinence without sensory awareness / SNOMED CT 3165376859 / Confirmed Leaking of urine / SNOMED CT 1962557121 / Confirmed Nocturia / SNOMED CT 141664798 / Confirmed Post-void dribbling / SNOMED CT 315619032 / Confirmed Prostate cancer screening / SNOMED CT 062418561 / Confirmed Urge incontinence / SNOMED CT 842932049 / Confirmed Urinary frequency / SNOMED CT 306950514 / Confirmed Urinary incontinence / SNOMED CT 0017806482 / Confirmed Urinary retention / SNOMED CT 861525741 / Confirmed Weak urinary stream / SNOMED CT 050375419 / Confirmed Resolved: Hypertension / SNOMED CT 7445361093 Resolved: 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 Acute pain of left knee Yes Poor balance History of fall Difficulty walking Leg weakness, bilateral Foot drop, right foot Visit number: 21 Timed Code Treatment Minutes: 53 minutes Total Treatment Time: 63 minutes Time In: 1100 Time Out: 1203 History: Pt. Presents to PT with c/c of LE weakness and poor balance which started gradually getting worse the last couple years. But in the last couple months he has noticed a sharp decline in his functional mobility. 3 falls in the last 6 months. Pt. Will be having back surgery/implant. Sleeping okay a night. Patient goal with PT is to improve his balance. Bilateral knee pain with right greaterthan left. Central low back pain. Pt. Has history of 3x back surgery. Pt has appointment with [facility] for AFO fitting and is now waiting on insurance. Pt. Reports of increased sedentary lifestyle. Pt. Has bilateral neuropathy with decrease sensation. Precautions: lumbar fusion, mild fall risk Subjective: Reports he is have a implant put in his low back next week and he is not allowed to exercises for 8 weeks after procedure. Pt. Reports he is able to bend over chicken picker objects off the floor. Pt. Reports of mild improvement with HEP. Pt. Said he is not too motivated to perform home exercises but he has been walking more. Reports he still feel unsteady on his feet. Objective: PT Evaluation (05/27/24) LE ROM grossly WFL in all planes Flexibility: mild hamstring, adductor mild, lumbar paraspinal moderate, piriformis moderate Strength: core 3+/5, left hip flexion 3-/5, hip abduction 4-/5, knee extension bilateral 4-/5, kneeflexion bilateral 4/5. Right ankle DF 3-/5, left ankle PF 4- /5, right PF 4-/5, left PF 4-/5 Gait: shuffling gait pattern with moderate drop foot on right and mild on left, primary use of rollator Neuro: decrease sensation to light touch Balance: SLS unable, tandem unable Treatment: Manual Therapy: ( PRN) supine: LE PROM/stretching, hamstring, piriformis, hip flexion, adductors; Passive ROM, Therapeutic Exercise: (15 minutes supervised) Guided pt through ther and flex ex per grid all exercises bilateral LE to improve Strength, Endurance, Flexibility, ROM Therapeutic Activity: (23 minutes supervised) Exercises to improve dynamic activities, functional tasks, functional mobility to return to prior activity level. Verbal cues needed to improve stride length and foot clearance w/ rollator, poor follow through. Neuromuscular re-education: (15 minutes supervised) Balance Training, Muscle Facilitation, Dynamic Stability, Core Stabilization, and Blood Flow Restriction Training (BFRT) Modalities:(PRN) Assessment: Outcome Measure 07/03/24: LEFS, 08/11/24: RLE grossly MMT: 4+/5 LLE grossly MMT: 4/5 Tandem stance of 4 seconds prior to needing UE Continues to have reduced stride length during amb, but is improved since IE. Pt. has participated in 21 PT sessions for focusing on standing functional and balance exercises. Amb into clinic with rollator with shuffling gait with short choppy steps. VC for increasing stride length with fair carryover. Pt continues to be challenged with walking due to bilateral neuropathy with his feet. Pt. Works hard with PT but does not perform exercises at home due to decreased motivation and fear of falling. Pt. Is challenged with sit to stand transfers due to LE weakness. Rehab Diagnosis: bilateral LE weakness, decrease functional mobility, poor balance, poor endurance. Short Term Goal: To be met in 2 weeks Goal 1: Pt to be instructed in home exercise program. Practice Office Associate Goals: To be met in 10 weeks Goal 1: Pt to report independence and compliance with home program. Goal 2: Pt. Will demonstrate normal bilateral LE muscle flexibility to help improve his ability to walk and decrease risk of falls. Goal 3: Pt. Will demonstrate 5/5 right LE strength grossly in all planes to allow him to walk/standfor long periods of time to help improve his functional mobility and quality of life. Goal 4: Pt. Will demonstrate 5/5 left LE strength grossly in all planes to allow him to walk/stand for long periods of time to help improve his functional mobility and quality of life. Goal 5: Pt will demonstrate normal functional stride length while walking with rollator to help improve his functional mobility and quality of life. Goal 6: Pt. Will score 35 or greater on LEFS to help improve his functional mobility. Goal 7: Pt. Will demonstrate good dynamic standing balance with tandem stance greater than 10 seconds to help decrease his risk of falls. PLAN: Patient will be placed on hold with PT due to have procedure next week on his low back and instructed for no exercising for 8 weeks. Pt. Was instructed to call our office after he is healed from procedure and we will continue a maintenance PT program to help improve his quality of life. I hereby deem this POC medically necessary. Please sign below. Date: [facility] [id number] History of Present illness Narrative* Ramírez Paez, - 07/15/2024 9:00 AM EDT Images from the original note were not included. No chief complaint on file. Subjective Ridge Roland, 78 y.o., male Ridge is here for a neurologic consult at the request of Dr. Hall for cervical spondylosis, lumbar spondylosis, polyneuropathy, unsteadiness and concerns for Parkinson's. He is here with his . Patient state his main complaints he is being seen for is neuropathy and balance issues. He states he has been having balance issues for about 4 years. He is PT for this and his back pain. He has a walker that he uses at all times. He states he has had two falls in the last 6 months. He states he hit his with one of the falls. His states he fell in the driveway, he needed help up and he did go to the emergency room for this. He has been experiencing numbness and tingling in his feet for about 5 years. He states he does not drive any longer. He could not feel how hard he was pushing the pedal. He tried gabapentin which made him hallucinate. He is unsure if he has tried anything else. He states he can't stand very long or the numbness get worse. This is not worse at any specific time of day. He sees pain management for his back- Dr. Huang at [facility] – [place], [place]. Review of Systems Constitutional: Negative for appetite change, fatigue and fever. Respiratory: Negative for cough, shortness of breath and wheezing. Cardiovascular: Negative for chest pain, palpitations and leg swelling. Gastrointestinal: Negative for abdominal pain, constipation, diarrhea and nausea. Musculoskeletal: Positive for back pain, gait problem and neck pain. Negative for arthralgias and myalgias. Neurological: Positive for tremors. Negative for dizziness, numbness and headaches. Past Medical History: Diagnosis Date BPH (benign prostatic hyperplasia) Exposure to blood-borne pathogen Fracture 3rd metacarpal Gout High cholesterol (CMS/HCC) History of cataract surgery History of heart artery stent 06/16/2019 HTN (hypertension) (CMS/HCC) Hyperlipidemia (CMS/HCC) Neuropathy Umbilical hernia Past Surgical History: Procedure Laterality Date BACK SURGERY BASAL CELL CARCINOMA EXCISION Right 1996 BCCA removal rt cheek CAROTID STENT EYE SURGERY 02/07/2021 EYE LID SX HEART CATH 2018 STENT HERNIA REPAIR 12/2018 LUMBAR SPINE SURGERY 07/23/2017 TONSILLECTOMY 2015 TOTAL KNEE ARTHROPLASTY Right 02/2022 RT TKA- DR GARAY TRIGGER FINGER RELEASE Right 05/10/2021 (R) MF TRIGGER RELEASE - DR GARAY Family History Problem Relation Name Age of Onset Diabetes Mother Brain cancer Father Social History Tobacco Use Smoking status: Former Types: Cigarettes Smokeless tobacco: Never Substance Use Topics Alcohol use: Yes Comment: caffeine 2-3 cups/day Allergies: Duloxetine hcl, Hydrocodone-acetaminophen, and Oxycodone Vitals: 07/15/24 0847 BP: 126/82 Pulse: 72 SpO2: 98% Body mass index is 28.85 kg/m . weight: 237 lb Neurologic exam: Mental status: Awake, alert to person, place and time. Recent and remote memory are intact. Language is fluent without aphasia. Attention and concentration are normal. Fund of knowledge is appropriate for level of education. Cranial nerves: CN II: Visual acuity is normal. Visual montejo full to confrontation. CN III, IV, : pupils equal round and reactive to light. Extraocular movements intact. No ptosis present. CN V: Facial sensation is normal. CN VII: Full and symmetric facial movement. CN VIII: Hearing is normal to finger rub bilaterally: CN IX and X: Palate elevates symmetrically. CN XI: Shoulder shrug is normal bilaterally. CN XII: Tongue is midline without atrophy or fasciculation. Motor: Patient has bilateral footdrop and some decreased strength in the bilateral lower extremities. No clear bradykinesia. No rigidity. No tremor. Sensory: Sensation is intact to light touch throughout Four extremities. Reflexes: Deep tendon reflexes are 0 and symmetric throughout. Coordination: [id number]-zb-[id number] testing and rapid alternating movements are normal Gait: Patient ambulates with a walker Review and summary of old records: MRI of the cervical spine without contrast on 05/27/2024: Multilevel moderate to marked foraminal narrowing with few levels of moderate canal narrowing and [id number]-tt-nnaexkzg disc bulging with facet arthropathy. CT of the brain without contrast on 05/02/2024: No depressed skull fracture or intracranial hemorrhage. Mild old microvascular ischemic disease and age-related atrophy. Assessment/Plan Diagnoses and all orders for this visit: Multilevel degenerative disc disease It is my impression that the patient has multilevel degenerative disc disease. He has marked foraminal and moderate canal narrowing in the cervical spine. He has undergone 3 lumbar spine surgeries. He has previously had EMG analysis in [place]. He is currently undergoing physical therapy and is currently undergoing pain management care with a plan for a spinal stimulator.I believe the weakness in his bilateral lower extremities and his gait instability are primarily that of being related to spine disease. This seems to be multilevel Plan: At this time, I believe the best course of action, should he choose to pursue this further, would be to revisit care with his neurosurgical team. The patient has declined this intervention at this time and wishes to continue working with pain management to try to combat his pain. The patient understands that any further diagnostic evaluation would come from that of the surgical team given his extensive surgical history. He will continue to work with physical therapy as well to improve his weakness. He is not interested in further spine surgery at this time. Hypophonia The patient does have very mild hypophonia on exam. He does not have tremor. He does not have clearrigidity. He does not have clear bradykinesia. I am not convinced that this time that he has Parkinson's. I feel his gait instability is related to spine pathology. Plan: If this changes we can certainly see the patient back in the future for further evaluation for disease etiology such as Parkinson's. The patient and understand and agree with the plan. Additional information was taken from the patient's who accompanies him to the visit today. Pt has been fully educated on their diagnosis, lab results, treatment options, follow up plan, and return instructions documented in [facility] [id number] Telephone encounter Note* Telephone Encounter - Ulices Esquivel NP - 07/08/2024 10:44 AM EDT Allergies reviewed. Rx sent to pharmacy. [facility] [id number] Miscellaneous Notes* Telephone Encounter - Ulices Esquivel NP - 07/08/2024 10:44 AM EDT Allergies reviewed. Rx sent to pharmacy. * Telephone Encounter - Tomasa Posadas - 07/08/2024 10:22 AM EDT Patient's called stating Ridge is having teeth cleaned 07/15/24 and needs RX sent to [facility] pharmacy is [place]. Please advise. documented in this encounterMer[facility], formerly [facility] [id number] Telephone encounter Note* Telephone Encounter - Tomasa Cuauhtemoc - 07/08/2024 10:22 AM EDT Patient's called stating Ridge is having teeth cleaned 07/15/24 and needs RX sent to [facility] pharmacy is [place]. Please advise. [facility] [id number] Evaluation + Plan noteExtracted from: Title:Pain Managment Follow up Author:Stephenie Claudio Date:07/02/24 Impression and Plan Patient is a 78-year-old male with a past medical history significant for postlaminectomy syndrome, chronic pain, right knee pain and right knee replacement. In regards to his postlaminectomy syndrome we have trialed a multitude of procedures and medications. He has trialed and failed a multitude of medications. He had a recent spinal cord stimulator trial. This gave him 60% relief. He states that things were better. They were not perfect but they are were better and at this time, this is nothing to give him the most relief. We discussed pursuing the spinal cord stimulator full implant. Questions and concerns were all answered and discussed. Patient is going to pursue this once authorization has been obtained. He will call us in the interim should he require anything from our services. ZACARIAS score: 42 %. [facility] [id number] NoteConsultation Note Patient: RIDGE ROLAND Age: 78 years Sex: Male : 1945 Associated Diagnoses: None Author: Stephenie Barrios PA-C Subjective Chief complaint 07/02/2024 8:52 EDT Back Pain . Patient is a 78-year-old male. He presents today for a follow-up after undergoing a spinal cord stimulator trial. This was done on 06/24/2024 and has given him 60% relief. He states that things are better. He is feeling better. He is comfortable and happy. He states that things not perfect but they are better and he would like to get this amount of pain relief long-term. He has previously trialed amitriptyline, codeine, tramadol, oxycodone, hydrocodone, Lyrica, gabapentin, and Cymbalta. He has had side effects with all these medications or they did not help. Previous injections have not helped. This has included sacroiliac joint injection as well as lumbar RFA. At this time, he rates his discomfort a 4?6/10 but it can get up to an 8/10. This affects his ambulatory status. This affects his quality of life. This affects his activities and affects his ability to do things he wants to do. Things are much better after the stimulator and he would like to have this implanted. Health Status Allergies: Allergic Reactions (Selected) Severity Not Documented Cymbalta- Hallucinations. Oxybutynin- Hallucinations. OxyCODONE- Visual hallucinations., Allergies (3) Active Severity Reaction oxyCODONE Visual hallucinations oxybutynin Hallucinations Cymbalta Hallucinations Current medications: (Selected) Documented Medications Documented Calcium 600+D oral tablet: 1 tab(s), Oral, Daily, Prophylaxis Klor-Con M20: 1 tab, Oral, Daily, Refills(s) 0, Prophylaxis Lipitor 40 mg Tab: 40 mg = 1 tab(s), Oral, Daily, Refills(s) 0, High cholesterol Tylenol: Oral, Refills(s) 0 Vitamin B12 1000 mcg Tab: 1,000 mcg [...] 25 mg, Oral, Daily, High blood pressure losartan 25 mg Tab: Refills(s) 0 nitroglycerin 0.4 mg sublingual Tab: PLACE 1 TABLET (0.4 MG) UNDER THE TONGUE EVERY 5 MINUTES NEEDED FOR CHEST PAIN Problem list: All Problems Hypercholesterolemia / SNOMED CT 67280771 / Confirmed Hernia, inguinal, right / SNOMED CT 489261086 / Confirmed BPH with urinary obstruction / SNOMED CT 6787846438 / Confirmed Elevated PSA / SNOMED CT 7650286186 / Confirmed Impotence / SNOMED CT 4559220753 / Confirmed Urinary frequency / SNOMED CT 769374945 / Confirmed Nocturia / SNOMED CT 383783188 / Confirmed Weak urinary stream / SNOMED CT 889942384 / Confirmed Gross hematuria / SNOMED CT 700641348 / Confirmed Anticoagulated / SNOMED CT 284776653 / Confirmed Urge incontinence / SNOMED CT 950628915 / Confirmed Chronic prostatitis / SNOMED CT 24294645 / Confirmed Dysuria / SNOMED CT 34123959 / Confirmed Urinary retention / SNOMED CT 404110221 / Confirmed BMI 31.0-31.9,adult / SNOMED CT 933839468 / Confirmed Incomplete bladder emptying / SNOMED CT 366559234 / Confirmed Post-void dribbling / SNOMED CT 585218793 / Confirmed Incontinence without sensory awareness / SNOMED CT 3521749102 / Confirmed At risk for falls / SNOMED CT 232326356 / Possible ED (erectile dysfunction) / SNOMED CT 5445040136 / Confirmed Leaking of urine / SNOMED CT 3184094117 / Confirmed Urinary incontinence / SNOMED CT 3654428653 / Confirmed Prostate cancer screening / SNOMED CT 183522787 / Confirmed Resolved: Hypertension / SNOMED CT 9521755697 Resolved: 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 Ambulating with a walker Eye: Normal conjunctiva. HENT: Normocephalic, Normal hearing. Cardiovascular: No edema. Musculoskeletal Normal range of motion. Normal strength. Right foot brace on Integumentary: Warm, Dry, [place]. Neurologic: Alert, Oriented. Psychiatric: Cooperative, Appropriate mood & affect. 14 point review of systems was negative unless otherwise noted. Impression and Plan Patient is a 78-year-old male with a past medical history significant for postlaminectomy syndrome,chronic pain, right knee pain and right knee replacement. In regards to his postlaminectomy syndrome we have trialed a multitude of procedures and medications. He has trialed and failed a multitude of medications. He had a (more content not included)...[facility] SystemComment on above:Result Comment: Electronically Signed By: Sophie SHIPMAN, Stephenie\.br\Date and Time Signed: 07/02/24 09:36 [id number] NoteProgress Note-Physician Patient: RIDGE ROLAND Age: 78 years Sex: Male : 1945 Associated Diagnoses: None Author: Gokul Escalera Jr, DO Preoperative Information Anesthesia Preop Info: Time patient last ate or drank 06/24/2024 00:00:00. Anesthesia history: Patient history: None. Family history+: None. Informed consent: Signed by patient. Re-evaluation prior to induction: Initial evaluation reviewed: No significant change. Review of Systems Eye: Negative except as documented in history of present illness. Ear/Nose/Mouth/Throat: Negative except as documented in history of present illness. Respiratory: Negative except as documented in history of present illness. Cardiovascular: Negative except as documented in history of present illness. Musculoskeletal: Negative except as documented in history of present illness. Neurologic: Negative except as documented in history of present illness. Health Status Allergies: Allergic Reactions (Selected) Severity Not Documented Cymbalta- Hallucinations. Oxybutynin- Hallucinations. OxyCODONE- Visual hallucinations. Problem list: All Problems Leaking of urine / SNOMED CT 9337800887 / Confirmed Urinary incontinence / SNOMED CT 2947212660 / Confirmed Urge incontinence / SNOMED CT 825195300 / Confirmed Hernia, inguinal, right / SNOMED CT 093576166 / Confirmed Urinary retention / SNOMED CT 385277361 / Confirmed Elevated PSA / SNOMED CT 3538276781 / Confirmed Post-void dribbling / SNOMED CT 828357750 / Confirmed Weak urinary stream / SNOMED CT 565496458 / Confirmed Prostate cancer screening / SNOMED CT 359413937 / Confirmed Nocturia / SNOMED CT 626503863 / Confirmed Urinary frequency / SNOMED CT 061338464 / Confirmed Incontinence without sensory awareness / SNOMED CT 1659529721 / Confirmed Impotence / SNOMED CT 0221936277 / Confirmed Hypercholesterolemia / SNOMED CT 32476938 / Confirmed Gross hematuria / SNOMED CT 203602762 / Confirmed Incomplete bladder emptying / SNOMED CT 384250382 / Confirmed ED (erectile dysfunction) / SNOMED CT 5593736081 / Confirmed Dysuria / SNOMED CT 78315533 / Confirmed Anticoagulated / SNOMED CT 858950681 / Confirmed Chronic prostatitis / SNOMED CT 75018736 / Confirmed BMI 31.0-31.9,adult / SNOMED CT 340804586 / Confirmed BPH with urinary obstruction / SNOMED CT 9609992833 / Confirmed At risk for falls / SNOMED CT 386114143 / Possible Resolved: 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 Comments: 01/25/2024 13:34 Azra Fitzgerald RN 90% relief for 4 hrs Radiofrequency ablation of nerve root of lumbar spine using fluoroscopic guidance ([id number]) on 10/08/2023 at 78 Years. Comments: 11/09/2023 11:23 Savannah Paredes RN Bilateral L3/4+L4/5- no relief Biliateral L3/4, L4/5 MBB ([id number]) on 09/04/2023 at 77 Years. Comments: 09/14/2023 7:53 Tomasa Abdullahi RN Bilateral L3/4, L4/5 MBB-80% relief for 1 day Bilateral L3/L4 L4/L5 MBB ([id number]) on 08/07/2023 at 77 Years. Comments: 08/28/2023 7:57 Sharee Jama RN L3/L4 L4/L5 MBB 85% Relief x 4 hours Caudal epidural ([id number]) on 05/29/2023 at 77 Years. Comments: 06/18/2023 10:04 EDT - Sharee Dominguez RN Caudal john 50% relief L3/4 Medial Branch Blocks ([id number]) on 05/01/2023 at 77 Years. Comments: 05/11/2023 9:48 EDSavannah Patel RN bilateral 75% relief for 2 hours Injection of facet joint using fluoroscopic guidance ([id number]) on 03/12/2023 at 77 Years. Comments: 03/19/2023 9:18 AMEENA Sierra RN, Myranda pt changed amt of relief to 80% x 4 hr. 03/19/2023 8:54 Myranda Butler RN L3/4 MBB- 50% relief x 4 hr Cysto/Botox 100 units ([id number]) on 05/11/2022 at 76 Years. Blepharoplasty ([id number]) on 02/07/2021 at 75 Years. Cystourethroscopy with dilation of urethral stricture ([id number]) on 12/02/2020 at 75 Years. Right eye cataract extraction and insertion of intraocular lens ([id number]) on 11/02/2020 at 75 Years. TURP - Transurethral resection of prostate ([id number]) on 04/28/2020 at 74 Years. Cystourethroscopy with dilation of urethral stricture ([id number]) on 12/08/2019 at 74 Years. back surgery on 10/16/2019 at 74 Years. Comments: 12/02/2019 9:22 Marine Roman 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3 Placement of stent in cardiac conduit ([id number]) on 06/16/2019 at 73 Years. inguinal hernia repair in 2018 at 72 Years. TURP - Transurethral resection of prostate ([id number]) on 07/12/2016 at 70 Years. Cystoscopy ([id number]) on 06/23/2016 at 70 Years. Evolve laser of prostate ([id number]) on 03/14/2013 at 67 Years. Urodynamics ([id number]) on 02/13/2013 at 67 Years. Back (947300432). Arthroscopy of knee joint (489508326). CE - Cataract extraction (1341460151). R (more content not included)...[facility] SystemComment on above: Result Comment: Electronically Signed By: Gokul Escalera Jr, DO\Ilirbr\Date and Time Signed: 06/26/24 07:45 [id number] NoteProgress Note-Physician Patient: RIDGE ROLAND Age: 78 years Sex: Male : 1945 Associated Diagnoses: None Author: Gokul Escalera Jr, DO Postoperative Information Postoperative disposition: Postoperative disposition: To PACU. Optimetrix number: Optimetrix number [id number]. Anesthetic utilized: General. Health Status Allergies: Allergic Reactions (Selected) Severity Not Documented Cymbalta- Hallucinations. Oxybutynin- Hallucinations. OxyCODONE- Visual hallucinations. Physical Examination Vital Signs 06/24/2024 9:23 EDT Heart Rate Monitored 72 bpm SpO2 97 % 06/24/2024 9:23 EDT Systolic Blood Pressure 139 mmHg Diastolic Blood Pressure 83 mmHg Mean Arterial Pressure, Monitered 102 mmHg 06/24/2024 9:23 EDT Temperature Axillary 36.4 DegC 06/24/2024 9:23 EDT Respiratory Rate 16 br/min Pain Assessment: Controlled. General: Awake, Alert, Appropriate. Respiratory: Adequate air exchange. Cardiovascular: Stable, Normal peripheral perfusion. Neurological: Normal sensory function, Normal motor function. Assessment Anesthetic outcome No anesthetic complications noted. Adequate pain relief. able to void without difficulty, able to ambulate with assist, tolerating PO intake, no N/V. Review / Management Condition: Stable. Plan Transfer/Discharge: Transfer/Discharge Discharge when meets criteria ( To home ).[facility] SystemComment on above:Result Comment: Electronically Signed By: Gokul Escalera Jr, DO\Ilirbr\Date and Time Signed: 06/26/24 07:45 EDT 06-24-2024 Evaluation + Plan noteExtracted from: Title:Spinal cord stimulator trial Author:Bert Huang DO Date:06/24/24 Diagnosis: Lumbar postlamine ctomy pain syndrome, M96.1. Chronic pain syndrome G89.29. Procedure: Spinal cord stimulator trial under fluoroscopic guidance with two 16 contact Infin[employer] leads from [employer] and 2 click anchors, 49300. Analyze neurostimulator complex, 79279. Anesthesia: MAC Complications: None Description: After informed consent was obtained, antibiotics were administered including 2 g of cefazolin. The patient was then brought to the procedure area and placed in the prone position. Patient was placed on the monitors then monitored with anesthesia. A timeout was then performed indicating the appropriate procedure and patient. Next, the patient was prepped using a ChloraPrep solution and sterile drapes were applied, sterile gowns and gloves were utilized throughout the whole case. The needle trajectory overlying the T12/L1 interlaminar space was anesthetized with 2% lidocaine with epi, a Touhy needle was then advanced into the epidural space with confirmation using glass miha-im-kklrjpkqay syringe and lead was threaded at T12/L1. Next, the T12-L1 interspace was accessed a sceond time, with appropriate posterior positioning of each lead. 2 Touhy needles were advanced into this location. Next, each 16 contact lead was advanced to the base of T6 vertebrae. Testing revealed appropriate coverage of both the low back and bilateral lower extremities. Multiple modalities were utilized to achieve appropriate coverage during analysis of the neurostimulator and complex programming, this includes lead trolling, adjustment of the lead position, and further adjustments as needed to achieve adequate coverage in this patient. Next, both Touhy needles were removed, click anchors were then utilized to suture both leads in place and this was covered with a Telfa dressing covered and antibiotic impregnated petroleum jelly. A Tegaderm was then placed to cover the area. The patient was then transported the recovery area in stable condition without apparent complication. Follow-up: We will plan to see the patient within 1 week or sooner if any issues arise, the patient agreed to adhere to the prescribed plan regarding her spinal cord stimulator trial. Future Appointments Appointment Date:07/02/2024 08:45:00 AM Scheduled Provider:Stephenie Barrios PA-C Location:.[facility] Appointment Type:Pain Management - Follow Up (FT) [facility] 08-08-2024 Hospital Discharge instructions Patient Education 06/12/2024 10:31:29 Urinary Incontinence Urinary Incontinence Urinary incontinence refers [...] nerve stimulation). ?For women, using a medical care evaluation specialist to prevent urine leaks. This is a [...] right after experiencing incontinence. General instructions Take tsrq-bqm-krbqwlc and prescription medicines only as told by [...] important. Where to find more information National [place] of [employer] and Digestive and Kidney Diseases: www.niddk.nih.gov [employer]: www.urologyhealth.org Contact a health care [...] provider. Document Revised: 05/27/2021 Document Reviewed: 05/27/2021 [employer] Patient Education 2022 [employer] Follow Up Care 05/23/2024 09:29:30 With:ALANIS WOOD PA-C, URL Address: [address] [place] [address] When: Unknown Comments:PRN [facility] 08-08-2024 NotePatient Education Urology Urinary Incontinence Urinary incontinence refers [...] the bladder, urethra, and sphincter can store andrelease urine. There are different types of urodynamic [...] of moderate-intensity exercise every week. Ask your healthcare provider which activities are safe for you. [...] urges. This can include distraction techniques or controlledbreathing exercises. ? Medicines, such as: ? Medicines to relax the bladder muscles and prevent bladder spasms. ? Medicines to help slow or prevent the growth of a man's prostate. ? Botox injections. These can help relax the bladder muscles. ? Treatments, such as: ? Using pulses of electricity to help change bladder reflexes (electrical nerve stimulation). ? For women, using a medical care evaluation specialist to prevent urine leaks. This is a [...] creams and cleansers that can protect the (more content not included)...[facility]07-18-[facility] History of Present illness Narrative* Marisol Connors MD - 05/22/2024 9:50 AM EDT Subjective Ridge Roland is a 78 y.o. male Chief Complaint Follow-up HPI Patient is in the office for follow-up for the problems noted below accompanied by his . He hasno indication of recurrent angina pectoris. He is limited physically due to severe neuropathy and back problems. Lab data from recent testing were reviewed and his numbers are very well and this was shared with him and his . His examination was unremarkable Assessment/recommendations: 1-coronary artery disease status post angioplasty of the ostial right coronary artery June 2019 for 80% stenosis with drug-eluting stent. Currently he is on guideline directed medical therapy for chronic ischemic heart disease and stable 2-essential hypertension on medical therapy presently under control 3-class I obesity. encouragement for weight loss was provided emphasizing low calorie diet 4-hyperlipidemia on statin therapy. Lipid profile is on target based on recent testing 5-Severe peripheral neuropathy limit his daily activities 6-chronic arthritis which limits the patient's mobility. 7-at risk for fall, education to prevent falls were discussed with the patient Review of Systems Cardiovascular: Positive for leg swelling. All other systems reviewed and are negative. Vitals: 05/22/24 0956 BP: 120/72 BP Location: Left arm Patient Position: Sitting Pulse: 68 Weight: 105 kg (232 lb) Height: 1.829 m (6') Objective Physical Exam Constitutional: Appearance: Normal appearance. HENT: Nose: Nose normal. Neck: Vascular: No carotid bruit. Cardiovascular: Rate and Rhythm: Normal rate. Pulses: Normal pulses. Heart sounds: Normal heart sounds. Pulmonary: Effort: Pulmonary effort is normal. Abdominal: General: Bowel sounds are normal. Palpations: Abdomen is soft. Musculoskeletal: General: Normal range of motion. Cervical back: Normal range of motion. Right lower leg: No edema. Left lower leg: No edema. Skin: General: Skin is warm and dry. Neurological: General: No focal deficit present. Mental Status: He is alert. Psychiatric: Mood and Affect: Mood normal. Behavior: Behavior normal. Thought Content: Thought content normal. Judgment: Judgment normal. Allergies Hydrocodone-acetaminophen and Oxycodone Current Medications Current Outpatient Medications: allopurinol (Zyloprim) 300 mg tablet, Take 1 tablet (300 mg) by mouth once daily., Disp: , Rfl: amLODIPine (Norvasc) 5 mg tablet, Take 1 tablet (5 mg) by mouth 2 times a day., Disp: , Rfl: ascorbic acid (Vitamin C) [...] by mouth once daily., Disp: , Rfl: etodolac (Lodine) 500 mg tablet, Take 1 tablet (500 mg) by mouth every 12 hours., Disp: , Rfl: hydroCHLOROthiazide (HYDRODiuril) 25 mg tablet, Take 1 tablet (25 mg) by mouth once daily., Disp: ,Rfl: Klor-Con M20 20 mEq ER tablet, TAKE 1 TABLET BY MOUTH EVERY DAY, Disp: 90 tablet, Rfl: 3 losartan (Cozaar) 25 mg tablet, Take 1 tablet (25 mg) by mouth once daily., Disp: , Rfl: LUTEIN-ZEAXANTHIN ORAL, Take 1 capsule by mouth once daily., Disp: , Rfl: nitroglycerin (Nitrostat) 0.4 mg SL tablet, Place 1 tablet (0.4 mg) under the tongue every 5 minutes if needed for chest pain., Disp: 25 tablet, Rfl: 11 Assessment/Plan 1. Arteriosclerosis of coronary artery Follow Up In Cardiology Follow Up In Cardiology nitroglycerin (Nitrostat) 0.4 mg SL tablet 2. Essential hypertension 3. Dyslipidemia 4. Status post coronary angioplasty 5. BMI 31.0-31.9,adult 6. Former smoker Scribe Attestation By signing my name below, I, Olra B, PICK UP WORKER , Scribe attest that this documentation has been prepared under the direction and in the presence of Marisol Connors MD. Provider Attestation - Scribe documentation All medical record entries made by the Scribe were at my direction and personally dictated by me. Vinave reviewed the chart and agree that the record accurately reflects my personal performance of the history, physical exam, discussion and plan. documented in this encounterDunlap [facility] Hospital Work Phone: 1(218) 592-651907-18-2024 Instructions* Patient Instructions* Lora Torres LPN - 05/22/2024 9:50 AM EDT Please bring all medicines, vitamins, and herbal supplements with you when you come to the office. Prescriptions will not be filled unless you are compliant with your follow up appointments or have a follow up appointment scheduled as per instruction of your physician. Refills should be requested at the time of your visit. Fall Prevention Education Given BMI was above normal measurement. Current weight: 105 kg (232 lb) Weight change since last visit (-) denotes wt loss 1 lbs Weight loss needed to achieve BMI 25: 48.1 Lbs Weight loss needed to achieve BMI 30: 11.3 Lbs Provided instructions on dietary changes Provided instructions on exercise. 6 months Same meds Can proceed with back stimulator documented in this encounterDunlap [facility] Hospital Work Phone: [phone]) 996-926506-28-2024 Evaluation + Plan noteExtracted from: Title:Pain Managment [...] authorization has been obtained ZACARIAS score: 56%. [facility]06-28-2024 NoteConsultation Note Patient: RIDGE ROLAND [...] hrs., # 15 tab(s), Refills(s) 3, [id number], cm, 08/31/22 9:11:00 EDT, Height/Length Dosing, 114.5, kg, 08/31/22 9:11:00 EDT, Weight Dosing... amitriptyline 10 mg Tab: 10 mg = 1 tab(s), Oral, Once a day (at bedtime), X 30 day(s), # 30 tab(s),Refills(s) 1, [id number] 193, cm, 03/14/24 9:55:00 EDT, Height/Length Dosing, 104.5, kg, 03/14/24 9:55:00 EDT, Weight Dosing amitriptyline 25 mg Tab: 25 mg = 1 tab(s), Oral, Once a day (at bedtime), X 30 day(s), # 30 tab(s),Refills(s) 1, [id number], 193, cm, 05/02/24 10:29:00 EDT, Height/Length Dosing, 104.5, kg, 03/14/24 9:55:00 EDT, Weight Dosing pregabalin 25 mg Cap: 25 mg = 1 cap(s), Oral, BID, # 60 cap(s), Refills(s) 2, [id number], 193, cm, 11/09/23 11:29:00 EST, Height/Length [...] list: All Problems Hypercholesterolemia / SNOMED CT 50542229 / Confirmed Hernia, inguinal, right / SNOMED CT 171925393 / Confirmed BPH with urinary obstruction / SNOMED CT 5770974378 / Confirmed Elevated PSA / SNOMED CT 1123281100 / Confirmed Impotence / SNOMED CT 6179557358 / Confirmed Urinary frequency / SNOMED CT 296990014 / Confirmed Nocturia / SNOMED CT 093869708 / Confirmed Weak urinary stream / SNOMED CT 886613896 / Confirmed Gross hematuria / SNOMED CT 826411437 / Confirmed Anticoagulated / SNOMED CT 036883274 / Confirmed Urge incontinence / SNOMED CT 722940033 / Confirmed Chronic prostatitis / SNOMED CT 56583811 / Confirmed Dysuria / SNOMED CT 36941226 / Confirmed Urinary retention / SNOMED CT 978769232 / Confirmed BMI 31.0-31.9,adult / SNOMED CT 892363560 / Confirmed Incomplete bladder emptying / SNOMED CT 941933315 / Confirmed Post-void dribbling / SNOMED CT 845220308 / Confirmed Incontinence without sensory awareness / SNOMED CT 9957241597 / Confirmed At risk for falls / SNOMED CT 352662822 / Possible ED (erectile dysfunction) / SNOMED CT 4397805525 / Confirmed Leaking of urine / SNOMED CT 4389133350 / Confirmed Urinary incontinence / SNOMED CT 8751808300 / Confirmed Prostate cancer screening / SNOMED CT 887902076 / Confirmed Resolved: Hypertension / SNOMED CT 8002268117 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 Eye: Normal conjunctiva. HENT (more content not included)...[facility] SystemComment on above: Result Comment: Electronically Signed By: Stephenie Barrios PA-C\.br\Date and Time Signed: 05/02/24 10:53 [id number] Evaluation + Plan noteExtracted from: Title:Pain Managment [...] Date:05/02/2024 10:30:00 AM Scheduled Provider:Stephenie Barrios PA-C Location:[facility] Appointment Type:Pain Management - Follow Up (FT) [facility]03-22-2024 Evaluation + Plan noteExtracted from: [...] Date:03/14/2024 09:45:00 AM Scheduled Provider:Stephenie Barrios PA-C Location[facility] Appointment Type:Pain Management - Follow Up (FT) [facility]03-06-2024 Evaluation + Plan noteExtracted from: Title:Bilateral sacroiliac joint injection Autho r:Bert Huang DOIlir Date:01/09/24 Diagnosis: M46.1, bilateral sacroiliitis Procedure: Bilateral [...] Date:01/25/2024 01:30:00 PM Scheduled Provider:Stephenie Barrios PA-C Location:.[facility] Appointment Type:Pain Management - Follow Up (FT) [facility]03-06-2024 Note [id number] NoteDiagnosis: M46.1, bilateral sacroiliitis Procedure: Bilateral [...] procedure, and agrees to continue currently prescribed/recommended therapies.[facility] Comment on above:Result Comment: Electronically Signed By: Bert Huang DO\.br\Date and Time Signed: 01/09/24 11:32 [id number] Hospital Discharge instructions Patient Education 12/14/2023 10:59:33 [...] nerve stimulation). ?For women, using a medical care evaluation specialist to prevent urine leaks. This is a [...] right after experiencing incontinence. General instructions Take ygkh-vjo-cuswnek and prescription medicines only as told by [...] important. Where to find more information National [place] of Diabetes and Digestive and Kidney Diseases: www.niddk.nih.gov [employer]: www.urologyhealth.org Contact a health care [...] provider. Document Revised: 05/27/2021 Document Reviewed: 05/27/2021 [employer] Patient Education 2022 [employer]. Follow Up Care 12/07/2023 15:16:05 With:DUC WALTERS, Homero Marie, URL Address: [facility] [address] , [place] [address] [phone] When: only if needed [facility] 02-05-2024 Evaluation + Plan noteExtracted from: Title:Pain [...] Date:12/14/2023 09:30:00 AM Scheduled Provider:Homero XAVIER MD Location:[facility] Appointment Type:URO Office Visit [facility]01-10-2024 History of Present illness Narrative* [...] Scribe Attestation By signing my name below, Ruby Rollins LPN , Scribjeannette attest that this documentation has been prepared under the direction and in the presence of Marisol Connors MD. Assessment/Plan 1. Arteriosclerosis of coronary artery Follow Up In Cardiology 2. Status post coronary angioplasty 3. Dyslipidemia 4. Essential hypertension 5. Obesity (BMI 30.0-34.9) 6. At risk for falls [facility] Work Phone: [phone]) 677-738901-10-2024 Instructions* Patient Instructions* Steven Wheeler MA - [...] Fall Prevention Education Given documented in [facility] Work Phone: [phone]) 282-991301-05-2024 Evaluation + Plan noteExtracted from: Title:Pain Managment [...] Date:12/10/2023 11:15:00 AM Scheduled Provider:Bib Sanchez MD Location:[facility] Appointment Type:Pain Management - Follow Up (FT) Appointment Date:12/11/2023 01:00:00 PM Scheduled Provider:ALANIS WOOD PA-C Location:[facility] Appointment Type:URO Office Visit [facility]12-19-2023 Evaluation note* Encounter Date Diagnosis [...] Oct, Fatigue, unspecified type (ICD-10 - R53.83) [employer] Other 12-04-2023 Note [id number]#[id number] 09-14-2023 Evaluation + Plan noteExtracted from: [...] follow-up as above mentioned ZACARIAS score: 28% [facility]10-31-2023 Note [id number] 08-07-2023 [id number]:127[facility]07-07-2023 Evaluation + Plan noteExtracted from: Title:Pain Managment [...] clinic sooner if necessary. ZACARIAS score: 42% [facility]06-29-2023 Evaluation note* Encounter Date Diagnosis Assessment Notes Treatment Notes Treatment Clinical Notes Apr, Thyroid cyst (ICD-10 - E04.1) [facility] non-diagnostic - 2014, US: stable nodules, no further scans necessary - 04/2023 [employer] Other 05-15-2023 Evaluation + Plan noteExtracted from: [...] clinic sooner if necessary. ZACARIAS score: 48% [facility]04-19-2023 Evaluation note* Encounter Date Diagnosis Assessment Notes Treatment Notes Treatment Clinical Notes Feb, Low back pain, unspecified (ICD-10 - M54.50) [employer] Other 02-27-2023 Evaluation note* Encounter Date Diagnosis [...] R26.89) Dec, Physical deconditioning (ICD-10 - R53.81) [facility]. Other 01-25-2023 Evaluation note* Encounter Date Diagnosis Assessment Notes Treatment Notes Treatment Clinical Notes Nov, Low back pain, unspecified (ICD-10 - M54.50) Nov, Other chronic pain (ICD-10 - G89.29) [employer] Other 01-24-2023 Hospital Discharge instructions Patient Education [...] urethra. Follow these instructions at home: Take kzxq-miw-ggtntzc and prescription medicines only as told by [...] 10/22/2006 Document Revised: 09/16/2019 Document Reviewed: 11/26/2017 [employer] Patient Education 2019 [employer]. Follow Up Care 08/31/2022 09:40:03 With:NINA SHIPMAN, ALANIS Bustillo, URL Address: [address] [place] [address] When: Unknown [facility] 07-26-2022 Hospital Discharge instructions Patient Education 05/30/2022 [...] urethra. Follow these instructions at home: Take ezpd-lsd-uxdcazl and prescription medicines only as told by [...] 10/22/2006 Document Revised: 09/16/2019 Document Reviewed: 11/26/2017 [employer] Patient Education 2020 [employer] Follow Up Care 05/11/2022 10:39:09 With:Remy Cruz MD, Goldy Collins, URO Address: [facility] [address] [place] [address]- [phone] When:Within 2 Month(s) Comments:PVR [facility] 07-07-2022 Hospital Discharge instructions Patient Education [...] [facility] [address] [place] [address]- Business (1) When:4 weeks Comments:PVR with next office visit [facility]06-15-2021 NoteHNO ID: [id number] Author: Alanis Nguyen MD Service: ? Author [...] He had a second opinion with Dr. Quezada(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 He established with [...] hence has not been back to the [facility]. He is not compliant with PT exercises. He continues to have numbness in the feet with intermittent tingling, no sharp/burning pain. ?On 11/08/20, he tripped over the laundry basket and had a cut on the right forehead. No loss of consciousness, he was brought to [facility] needing stitches. CT c- spine showed degenerative [...] as he can do more at the [facility]. They are planning to go back to the [facility]. Current Outpatient Medications Medication Sig [...] pain, no s (more content not included)... [facility]02-24-2021 NotePatient Outreach (COVAMN) RIDGE ROLAND ([id number]) 1945 M Date Time Provider Department 12/29/20 YARITZA WILLSON During your visit today, we recorded the following information about you: Allergies As of Date: 12/29/2020 (No Known Allergies) Date Reviewed: 11/16/2020 Reviewed by: Mauri Du) SHIRA Horn - Fully Assessed Order(s):SARS-COVID VACCINE 1ST DOSE APPT [[id number]] Order #: [id number] FUTURE Prescriptions as of 12/29/2020 Sig: CYANOCOBALAMIN [...] (None) Encounter Status:Closed by OSCAR SULLIVAN on 01/03/21[facility] Evaluation + Plan note Future Appointments Appointment Date:05/11/2022 10:00:00 AM Scheduled Provider: Location:[facility] Appointment Type:Urology FT [facility] evaluation + Plan note Future Appointments Appointment Date:05/30/2022 09:30:00 AM Scheduled Provider:Goldy Alberto Jr., MD Location:[facility] Appointment Type:[facility]O [facility] Future Appointments Appointment Date:08/08/2022 08:45:00 AM Scheduled Provider:Goldy Alberto Jr., MD Location:[facility] Appointment Type:URO Office Visit [facility] evaluation + Plan note Future Appointments Appointment Date:01/10/2023 11:00:00 AM Scheduled Provider:ALANIS WOOD PA-C Location:[facility] Appointment Type:URO Office Visit [facility] evaluation + Plan note Future Appointments Appointment Date:03/19/2023 08:30:00 AM Scheduled Provider:Stephenie Barrios PA-C Location:[facility] Appointment Type:Pain Management - [facility] (FT[facility] Future Appointments Appointment Date:05/11/2023 10:00:00 AM Scheduled Provider:Stephenie Barrios PA-C Location:[facility] Appointment Type:Pain Management - [facility] Up (FT) [facility] Future Appointments Appointment Date:08/28/2023 07:45:00 AM Scheduled Provider:Bib Sanchez MD Location:[facility] Appointment Type:Pain Management - Follow Up (FT[facility] Future Appointments Appointment Date:11/09/2023 11:15:00 AM Scheduled Provider:Stephenie Barrios PA-C Location:[facility] Appointment Type:Pain Management - [facility] (FT[facility] Future Appointments Appointment Date:06/17/2024 11:30:00 AM Scheduled Provider:Bert Huang DO Location:[facility] Appointment Type:Pain Management - Nurse Consult (FT) Appointment Date:06/24/2024 08:00:00 AM Scheduled Provider: Location:[facility] Appointment Type:Surgery FT Appointment Date:07/02/2024 08:45:00 AM Scheduled Provider:Stephenie Barrios PA-C Location:[facility] Appointment Type:Pain Management - Follow Up (FT) [facility] evaluation + Plan note Future Appointments Appointment Date:06/24/2024 08:00:00 AM Scheduled Provider: Location:[facility] Appointment Type:Surgery FT Appointment Date:07/02/2024 08:45:00 AM Scheduled Provider:Stephenie Barrios PA-C Location:[facility] Appointment Type:Pain Management - Follow Up (FT) [facility] Evviolaation + Plan note Future Appointments Appointment Date:06/24/2024 08:00:00 AM Scheduled Provider: Location:[facility] Appointment Type:Surgery FT Appointment Date:07/02/2024 08:45:00 AM Scheduled Provider:Stephenie Barrios PA-C Location:[facility] Appointment Type:Pain Management - Follow Up (FT) Diagnostic Tests Pending * MRSA Screen 06/17/24 [facility] Evaluation + Plan note Future Appointments Appointment Date:08/19/2024 08:00:00 AM Scheduled Provider: Location:[facility] Appointment Type:Surgery FT Appointment Date:08/27/2024 11:15:00 AM Scheduled Provider:Stephenie Barrios PA-C Location:[facility] Appointment Type:Pain Management - Follow Up (FT) Diagnostic Tests Pending * MRSA Screen 08/12/24 [facility] evaluation + Plan note Future Appointments Appointment Date:08/19/2024 08:00:00 AM Scheduled Provider: Location:[facility] Appointment Type:Surgery FT Appointment Date:08/27/2024 11:15:00 AM Scheduled Provider:Stephenie Barrios PA-C Location:[facility] Appointment Type:Pain Management - Follow Up (FT) [facility] evaluation noteNo InformationNoEVault Other evaluation noteNoEVault Other Evaluation note* Diagnosis Arteriosclerosis of coronary artery- Primary Status post coronary angioplasty Postsurgical percutaneous transluminal coronary angioplasty status Dyslipidemia Other and unspecified hyperlipidemia Essential hypertension Unspecified essential hypertension Obesity (BMI 30.0-34.9) At risk for falls Personal history of fall documented in this encounter [facility] Work Phone: Evaluation note* Diagnosis Onset Date Resolution Status Abnormal intentional weight loss acute ASHD (arteriosclerotic heart disease) acute Hypercholesterolemia acute Impaired fasting glucose acu te Memory deficit acute Primary hypertension acute [facility] Work Phone: Evaluation note* Diagnosis Onset Date Resolution Status Impaired fasting glucose acu te Lumbar spondylosis acute Memory deficit acute Primary hypertension acute Abnormal intentional weight loss acute ASHD (arteriosclerotic heart disease) acute Impaired fasting glucose acu te Primary hypertension acute [facility] Work Phone: Evaluation note* Diagnosis Onset Date Resolution Status ASHD (arteriosclerotic heart disease) acute Hypercholesterolemia acute Impaired fasting glucose acu te Lumbar spondylosis acute Polyneuropathy acute Primary hypertension acute Medicare annual wellness visit, subsequent noneactive Screening PSA (prostate specific antigen) noneactive [facility] Work Phone: Evaluation note* Diagnosis Onset Date Resolution Status ASHD (arteriosclerotic heart disease) acute Hypercholesterolemia acute Impaired fasting glucose acu te Lumbar spondylosis acute Polyneuropathy acute Primary hypertension acute Medicare annual wellness visit, subsequent noneactive Screening PSA (prostate specific antigen) noneactive Abrasion, scalp w/o infection acute Concussion acute Contusion, hip acute Contusion, knee acute ASHD (arteriosclerotic heart disease) acute Lumbar spondylosis acute Polyneuropathy acute Primary hypertension acute [facility] Work Phone: Evaluation note* Diagnosis Acute pain of left knee- Primary Poor balance History of fall Personal history of fall Difficulty walking Difficulty in walking Leg weakness, bilateral Muscle weakness (generalized) Foot drop, right foot History of falling Left hip impingement syndrome Right hip impingement syndrome [facility] Diagnosis Acute pain of left knee- Primary Poor balance History of fall Personal history of fall Difficulty walking Difficulty in walking Leg weakness, bilateral Muscle weakness (generalized) Foot drop, right foot History of falling Left hip impingement syndrome Right hip impingement syndrome [facility]* Diagnosis Acute pain of left knee- Primary Poor balance History of fall Personal history of fall Difficulty walking Difficulty in walking Leg weakness, bilateral Muscle weakness (generalized) Foot drop, right foot [facility]* Diagnosis Acute pain of left knee- Primary History of fall Personal history of fall Poor balance Leg weakness, bilateral Muscle weakness (generalized) [facility]* Diagnosis Acute pain of left knee- Primary History of fall Personal history of fall Poor balance Difficulty walking Difficulty in walking Leg weakness, bilateral Muscle weakness (generalized) Foot drop, right foot History of falling Left hip impingement syndrome Right hip impingement syndrome [facility]* Diagnosis Arteriosclerosis of coronary artery- Primary Essential hypertension Unspecified essential hypertension Dyslipidemia Other and unspecified hyperlipidemia Status post coronary angioplasty Postsurgical percutaneous transluminal coronary angioplasty status BMI 31.0-31.9,adult Former smoker Personal history of tobacco use, presenting hazards to health At risk for falls Personal history of fall Idiopathic peripheral neuropathy Unspecified hereditary and idiopathic peripheral neuropathy documented in this encounter [facility] Work Phone: Evaluation note* Diagnosis Acute pain of left knee- Primary History of fall Personal history of fall Poor balance Foot drop, right foot [facility] Diagnosis Acute pain of left knee- Primary History of fall Personal history of fall Poor balance Foot drop, right foot Difficulty walking Difficulty in walking Leg weakness, bilateral Muscle weakness (generalized) History of falling Left hip impingement syndrome Right hip impingement syndrome documented [facility]* Diagnosis Acute pain of left knee- Primary History of fall Personal history of fall Poor balance Leg weakness, bilateral Muscle weakness (generalized) Difficulty walking Difficulty in walking Foot drop, right foot History of falling Left hip impingement syndrome Right hip impingement syndrome documented in this encounter [facility]* Diagnosis History of total right knee replacement- Primary documented in this encounter [facility]* Diagnosis Multilevel degenerative disc disease- Primary Hypophonia documented in this encounter [facility]* Diagnosis Acute pain of left knee- Primary History of fall Personal history of fall Poor balance Leg weakness, bilateral Muscle weakness (generalized) Difficulty walking Difficulty in walking Foot drop, right foot History of falling Left hip impingement syndrome Right hip impingement syndrome [facility] Diagnosis Acute pain of left knee- Primary Poor balance History of fall Personal history of fall Difficulty walking Difficulty in walking Leg weakness, bilateral Muscle weakness (generalized) Foot drop, right foot History of falling Left hip impingement syndrome Right hip impingement syndrome documented in this encounter [facility]* Diagnosis Acute pain of left knee- Primary Poor balance History of fall Personal history of fall Difficulty walking Difficulty in walking Leg weakness, bilateral Muscle weakness (generalized) Foot drop, right foot History of falling documented in this encounter [facility]* Diagnosis Acute pain of left knee- Primary History of fall Personal history of fall Poor balance Difficulty walking Difficulty in walking Leg weakness, bilateral Muscle weakness (generalized) Foot drop, right foot History of falling Left hip impingement syndrome Right hip impingement syndrome documented in this encounter [facility] note* Diagnosis Swelling of joint of right knee- Primary Right knee pain, unspecified chronicity documented [facility] Narrative - Reported* Type Description Date Medical History HTN Medical History neuropathy Medical History arthritis Medical History heart stent Medical History cataracts Medical History Gout Medical History high cholesterol Medical History prostate Surgical History heart cath with stent placed Surgical History back surgery x 2 Surgical History hernia repair Hospitalization History see surg hx [facility] Other History general Narrative - Reported* Type [...] eyes Hospitalization History see surgery list [facility]. Other Hiskkxm general Narrative - [facility] Other Hospital course Narrative No data available for this section [facility] Discharge instructions No data available for this section [facility] progress note No data available for this section [facility] reason for referral (narrative)* Consultation (Routine) - Authorized Specialty Diagnoses / Procedures Referred By Contac t Referred To Contact Cardiology Diagnoses Arteriosclerosis of coronary artery Procedures Follow Up In Cardiology Marisol Connors MD [address] [place] [address] 2, [address] [address] Marisol Connors MD [address] [place] [address] 2, [place] [address] Referral ID Status Reason Start Date Expiration Date V isits Requested Visits Authorized [id number] Authorized 11/14/2023 11/13/2024 1 1 [facility] Work Phone: Reason for referral (narrative)* Consultation (Routine) - Authorized Specialty Diagnoses / Procedures Referred By Contac t Referred To Contact Cardiology Diagnoses Arteriosclerosis of coronary artery Procedures Follow Up In Cardiology Marisol Connors MD [address] [facility] [address] [place] [address] Marisol Connors MD [address] [facility] [address] [place] [address] Referral ID Status Reason Start Date Expiration Date V isits Requested Visits Authorized [id number] Authorized 05/22/2024 05/22/2025 1 1 [facility] Work Phone: Reason for visit Narrative* Consultation (Routine) - Authorized Specialty Diagnoses / Procedures Referred By Contbenjamin t Referred To Contact Physical Therapy Diagnoses Acute pain of left knee Foot drop, right foot History of falling Left hip impingement syndrome Right hip impingement syndrome Procedures NM OFFICE/OUTPATIENT NEW HIGH MDM 60 MINUTES Fatoumata Montes PA 112 [facility] [address] [place] [address] Philip Aldrich, PT [address] [place] [address] [address] Referral ID Status Reason Start Date Expiration Date Visits Requested Visits Authorized [id number] Authorized Consult and Treat 05/13/2024 11/09/2024 99 99 [facility] for [facility] Narrative* Consultation (Routine) - Closed Specialty Diagnoses / Procedures Referred By Contbenjamin t Referred To Contact Physical Therapy Diagnoses Acute pain of left knee Foot drop, right foot History of falling Left hip impingement syndrome Right hip impingement syndrome Procedures NM OFFICE/OUTPATIENT NEW HIGH MDM 60 MINUTES Fatoumata Montes PA 112 [facility] [address] [place] [address] Philip Aldrich, PT 112 [facility] [address] [place] [address] Referral ID Status Reason Start Date Expiration Date V isits Requested Visits Authorized [id number] Closed Consult and Treat 05/13/2024 11/09/2024 99 99 [facility] Summary Purpose Family History No Family History [...] 1 Lumbar spondylosis ( M47.816) Referral Organization [facility] Referring Provider First Name Devang Referring Provider Last Name Rafael Referring Provider Specialty Internal Me dicine Referred Organization [facility] Referred Provider Allison Kenyon Referred Address [address] [place],[address] Referred Provider Specialty Neurological Surgery Referral Priority [...] that his back condition is stable. Aysha Parkre 11/16/2022 11:18:53 AM >received today, noted above, [...] antigen) Chief Complaint Wellness ER follow up medication discussion Reason for Visit ASHD (arteriosclerot ic heart disease) Hypercholesterolemia Impaired fasting glucose Lumbar spondylosis Polyneuropathy Primary hypertension Medicare annual wellness visit, subsequent Screening PSA (prostate specific antigen) Abrasion, scalp w/o infection Concussion Contusion, hip Contusion, knee ASHD (arteriosclerotic heart disease) Lumbar spondylosis Polyneuropathy Primary hypertension Additional Source Comments (unrecognized sect ion and content) No Status Records FoundNo Status Records FoundNo Status Records FoundNo Status Records FoundNo Status Records FoundNo Status Records FoundNo Status Records FoundNo Status Records FoundNo Status Records FoundNo Status Records FoundNo Status Records Found INFORMATION SOURCE (unrecogn ized section and content) DATE CREATED AUTHOR 04/23/2018 [facility] DATE CREATED AUTHOR AUTHOR'S ORGANIZ ATION 09/10/2020 [facility] DATE CREATED AUTHOR AUTHOR'S ORGANIZ ATION 12/26/2021 [facility] DATE CREATED AUTHOR AUTHOR'S ORGANIZ ATION 03/11/2023 [facility] DATE CREATED AUTHOR AUTHOR'S ORGANIZ ATION 03/11/2023 [facility] DATE CREATED AUTHOR AUTHOR'S ORGANIZ ATION 03/18/2023 [facility] DATE CREATED AUTHOR AUTHOR'S ORGANIZ ATION 05/25/2024 [facility] DATE CREATED AUTHOR AUTHOR'S ORGANIZ ATION 06/19/2024 [facility] DATE CREATED AUTHOR AUTHOR'S ORGANIZ ATION 08/13/2024 [facility] DATE CREATED AUTHOR AUTHOR'S ORGANIZ ATION 09/26/2024 [facility] DATE CREATED AUTHOR AUTHOR'S ORGANIZ ATION 11/17/2024 [facility] d[facility] Special[facility] EPIC Care Team (unrecognized sect ion and content) [...] January 18, 2024 End: January 18, 2024 Lead Web Application Developer Relationship Specialty Start Date End Date Devang Hall DO [facility] [address] [facility] [place] [place] [address] PCP - General Internal Medicine 11/14/23 Team [...] May 07, 2024 End: May 07, 2024 Team Status: Inactive Member Role Status Dates Devang Hall DO Primary Care Provide r, Attending Provider Active Start: June 13, 2024 End: June 13, 2024 Lead Web Application Developer Relationship Specialty Start Date End Date Devang Hall MD [address] [place] [phone] PCP - General Internal Medicine 02/25/24 Lead Web Application Developer Relationship Specialty Start Date End Date Devang Hall MD [address] [place] [address] PCP - General Internal Medicine 02/25/24 Lead Web Application Developer Relationship Specialty Start Date End Date Devang Hall MD [address] [place] [address] PCP - General Internal Medicine 02/25/24 Lead Web Application Developer Relationship Specialty Start Date End Date Devang Hall MD [address] [place] [id number] PCP - General Internal Medicine 02/25/24 Lead Web Application Developer Relationship Specialty Start Date End Date Devang Hall MD [address] [place] [phone] PCP - General Internal Medicine 02/25/24 Lead Web Application Developer Relationship Specialty Start Date End Date Devang Hall MD [address] [place] [facility] [address] PCP - General Internal Medicine 02/25/24 Lead Web Application Developer Relationship Specialty Start Date End Date Devang Hall MD [address] [place] [facility] [address] PCP - General Internal Medicine 02/25/24 Lead Web Application Developer Relationship Specialty Start Date End Date Devang Hall MD [address] [place] [facility] [address] PCP - General Internal Medicine 02/25/24 Lead Web Application Developer Relationship Specialty Start Date End Date Devang Hall MD [address] [place] [facility] [address] PCP - General Internal Medicine 02/25/24 Lead Web Application Developer Relationship Specialty Start Date End Date Devang Hall MD [address] [place] [facility] [address] PCP - General Internal Medicine 02/25/24 Lead Web Application Developer Relationship Specialty Start Date End Date Devang Hall DO PCP - General Internal Medicine 11/14/23 Lead Web Application Developer Relationship Specialty Start Date End Date Devang Hall MD [address] [place] [facility] [address] PCP - General Internal Medicine 02/25/24 Lead Web Application Developer Relationship Specialty Start Date End Date Devang Hall MD [address] [place] [facility] [address] PCP - General Internal Medicine 02/25/24 Lead Web Application Developer Relationship Specialty Start Date End Date Devang Hall MD [address] [place] [facility] [address] PCP - General Internal Medicine 02/25/24 Lead Web Application Developer Relationship Specialty Start Date End Date Devang Hall MD [address] [place] [facility] [address] PCP - General Internal Medicine 02/25/24 Lead Web Application Developer Relationship Specialty Start Date End Date Devang Hall MD [address] [place] [facility] [address] PCP - General Internal Medicine 02/25/24 Lead Web Application Developer Relationship Specialty Start Date End Date Devang Hall MD [address] [place] [facility] [address] PCP - General Internal Medicine 02/25/24 Lead Web Application Developer Relationship Specialty Start Date End Date Devang Hall MD [address] [place] [facility] [address] PCP - General Internal Medicine 02/25/24 Lead Web Application Developer Relationship Specialty Start Date End Date Devang Hall MD [address] [place] [facility] [address] PCP - General Internal Medicine 02/25/24 Lead Web Application Developer Relationship Specialty Start Date End Date Devang Hall MD [address] [place] [facility] [address] PCP - General Internal Medicine 02/25/24 Lead Web Application Developer Relationship Specialty Start Date End Date Devang Hall MD [address] [place] [facility] [phone] PCP - General Internal Medicine 02/25/24 Lead Web Application Developer Relationship Specialty Start Date End Date Devang Hall MD [address] [place] [address] PCP - General Internal Medicine 02/25/24 REASON FOR VISIT (unrecogniz ed section and content) Reason Comments Follow-up 6 month Reason Comments Follow-up 6 months Specialty Diagnoses / Procedures Referred By Jonathan t Referred To Contact Cardiology Diagnoses Arteriosclerosis of coronary artery Procedures Follow Up In Cardiology Marisol Connors MD [address] [place] [address], [place] [phone] Marisol Connors MD [address] [place] [address], [place] [phone] Referral ID Status Reason Start Date Expiration Date V isits Requested Visits Authorized [id number] Authorized 11/14/2023 11/13/2024 1 1 Reason Onset Date Comments Dentist 07/08/2024 Reason Comments Pain Goals (unrecognized section and content) Goals may [...] BE BASED ON THE PRIMARY CLINICAL RECORDS. [facility]. provides no warranty or guarantee of the accuracy or completeness of information in this document.
== END 2024-12-12 09:01 | disposition home or self-care (01) ==
LOC: EC 09:00
PROVIDERS: PCP Internal Medicine; Visit Provider Orthopaedic Surgery Orthopaedic Surgery of the Spine
DX: M54.50 Low back pain, unspecified (principal); M51.369 Other intervertebral disc degeneration, lumbar region without mention of lumbar back pain or lower extremity pain
CPT/HCPCS: 72100

== ENCOUNTER 2025-01-12 08:46 | Outpatient (OUT) | payer MEDICARE, SELFPAY ==
--- NOTE | 2025-01-12 08:52 | CT_ITS ---
The [address] [address] Patient Name: RIDGE ROLAND MRN: [id number] date: 1945 Sex: M Assigned Patient Location: MRI Current Patient Location: MRI Accession/Order Number: [id number] Exam Date: 01/12/2025 11:16 Report Date: 01/12/2025 11:36 At the request of: VIRGILIO BOTELLO Procedure: CT lumbar spine wo con CT LUMBAR SPINE WITHOUT CONTRAST WITH 3-D RECONSTRUCTIONS COMPARISON: Plain films 12/15/2024 CLINICAL DATA: Chronic increasing back pain. No injury. Previous back surgeries. Spiral axial unenhanced images were obtained through the lumbar spine. Sagittal, coronal and 3-D volume rendered reconstructions were reviewed. This CT exam was performed using one or more following dose reduction techniques: Automated exposure control, adjustment of the mA and/or kV according to patient size, or use of iterative reconstruction technique. There is approximately 5 mm of retrolisthesis of L5 on L4. Alignment is otherwise maintained. No acute compression fractures are seen. There is partial laminectomy at L4 and laminectomy at L5 where interbody fusion devices are seen at the lumbosacral junction. There is a partially imaged dorsal stimulator entering the spinal canal at the T11-12 level. There is disc space narrowing at L3-4 with vacuum phenomenon, endplate sclerosis and subchondral cystic change. There is also some vacuum phenomenon at L2-3. There is multilevel endplate spurring. There is lower lumbar facet hypertrophy. At L1-2, there is no disc disease or stenosis. At L2-3, slight annular disc bulging toward the neural foramen on both sides where there is mild inferior foraminal encroachment. At L2-3, there is annular disc bulging as well as facet and ligamentous hypertrophy with associated moderate to severe central stenosis. There is also moderate to severe left and moderate right foraminal narrowing. At L3-4, there is disco-osteophytic bulging extending through the neural foramen laterally, greater on the left. A focal protrusion is seen in the right parasagittal region toward the lateral recess. There is also some facet and ligamentous hypertrophy. There is severe central and moderately severe bilateral foraminal impingement. At L4-5, there is asymmetric endplate spurring in the left parasagittal region extending to the foramen where there is associated foraminal impingement. There is also at least moderate narrowing of the neural foramen on the right. There is no prominent deformation of thecal sac given the previous laminectomy. At the lumbosacral junction no disc disease or thecal sac effacement is present. There is moderate to severe bony foraminal encroachment. There is degenerative change at the SI joints with partial ankylosis. No paraspinal soft tissue abnormalities are identified. The imaged costophrenic angles are clear. There are calcified splenic granulomas. There is bilateral perinephric fibrofatty stranding. No renal calculi or hydronephrosis are seen in the field of view. There is atherosclerotic plaque at the aorta and iliac arteries. 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 Impression dictated by: Tiarra Siegel M.D.01/12/2025 11:36 AM Dictation Location: [place] [address] Electronically authenticated by: [id number] Y Date: 01/12/2025 11:36
--- NOTE | 2025-01-12 08:53 | MR_ITS ---
The [address] [address] Patient Name: RIDGE ROLAND MRN: [id number] date: 1945 Sex: M Assigned Patient Location: MRI Current Patient Location: MRI Accession/Order Number: [id number] Exam Date: 01/12/2025 12:23 Report Date: 01/12/2025 12:49 At the request of: VIRGILIO BOTELLO Procedure: MR lumbar spine wo con MRI LUMBAR SPINE WITHOUT CONTRAST COMPARISON: CT lumbar spine 01/12/2025 and MRI 11/14/2022 CLINICAL DATA: Chronic back pain and prior surgeries. Multiecho imaging in the axial and sagittal plane was performed without contrast. Patient has a dorsal stimulator. The battery pack is in the left paraspinal region at the L2 level with some associated susceptibility artifact. There is retrolisthesis of L3 on L4 and approximately 5 mm. Alignment is otherwise maintained. No acute compression fractures or marrow edema are identified. There are, however degenerative endplate signal changes as well as endplate spurring. There is a hemangioma at L2. There is evidence of prior laminectomy at L4 and L5. The conus medullaris is within normal limits for caliber, position and signal intensity. The abdominal aorta is mildly ectatic. At T12-L1 and L1-2 the discs are normal in height and signal intensity. No disc bulge or herniation is present. No stenosis is identified. At L2-3, there is disc desiccation. There is mild annular disc bulging with additional endplate spurring extending through the neural foramen laterally. There is bilateral facet and ligamentous hypertrophy. There is at least moderate, increasing central stenosis since the comparison MRI. There is moderate right and moderate to severe left foraminal encroachment. At L3-4, there is narrowing of the disc space. There is disco-osteophytic bulging with a more focal right parasagittal protrusion with slight caudal extension, better seen on the sagittal sequences. There is prominent facet disease. There are central synovial cysts associated with the facets at that level, larger and new on the left measuring approximately 8 to 9 mm in size. There is also a second developing synovial cyst on the left along the superior aspect of the facet measuring approximately 7 mm. There is severe, worsening stenosis essentially obliterating the central canal at that level. There is also severe narrowing of the neural foramen bilaterally. At L4-5, there is continued minor asymmetric disco-osteophytic bulging in the left parasagittal region extending to the neural foramen. Bilateral facet hypertrophy is seen. There is no significant thecal sac deformation due to the presence of laminectomy. Moderate to severe bilateral bony foraminal encroachment is present at this level. At the lumbosacral junction there is prior fusion with interbody devices. There is no significant disc disease or central stenosis. There is facet hypertrophy. There is moderate to severe bilateral foraminal impingement which is similar to the comparison MRI. MR/MR lumbar spine wo con IMPRESSION: MULTILEVEL DISCOVERTEBRAL VERTEBRAL DEGENERATIVE AND POSTOPERATIVE CHANGES WITH ASSOCIATED STENOSIS. THERE IS INTERVAL PROGRESSION AT THE L3-4 LEVEL, DESCRIBED. Impression dictated by: Tiarra Siegel M.D.01/12/2025 12:49 PM Dictation Location: [place] [address] Electronically authenticated by: [id number] Y Date: 01/12/2025 12:49
--- OUTSIDE RECORDS SUMMARY | 2025-01-12 09:09 | XMS_ITS | CCD ---
Author Organization [facility] Care Team Providers Care Supervising Film Or Videotape Editor Name Role Phone SMITA, ANNMARIE H. Unavailable [...] DEVANG Referring Unavailable Barrios, Stephenie Attending Unavailable Sophei PA-C Stephenie Admitting Unavailabl e BALL, DEVANG [...] Unavailable MONTES, FATOUMATA J Referring Unavailable BRINK, JNENY Attending Unavailable MONTES, FATOUMATA J Referring Unavailable [...] DULoxetine; Translations: [duloxetine] Drug Allergy Hallucinations (finding) [facility] (1 source) oxyCODONE; Translations: [oxycodone] Drug Allergy Visual hallucinations [facility] oxybutynin (1 source) oxybutynin; Translations: [oxybutynin] Drug Allergy Hallucinations (finding) [facility] (8 sources) Acetaminophen / HYDROcodone; Translations: [HYDROcodone-Alberto taminophen TABS] Drug Allergy 10-12-20 Hallucinations [facility] (20 sources) oxybutynin; Translations: [oxybutynin] Drug Allergy Hallucinations (finding) [facility] (20 sources) oxyCODONE; Translations: [oxycodone] Drug Allergy 03-12-20 Hallucinations [facility] (1 source) oxyCODONE Drug Allergy 11-05-19 18 [facility] Repository (14 sources) DULoxetine; Translations: [duloxetine] Drug Allergy Hallucinations (finding) [facility] (20 sources) Acetaminophen / HYDROcodone; Translations: [HYDROCODONE-ALBERTO TAMINOPHEN] Drug Allergy 10-12-20 [facility] 3 Repository (3 sources) Sulfonamides (Antibiotic); Translations: [sulfa drugs] Propensity to adverse reactions (disorder) [facility] Repository (20 sources) DULoxetine Drug Allergy 07-15-20 [...] day(s), # 30 tab(s), Refills(s) 1, Pharmacy: [facility]/pharmacy #[id number], 193, cm, 05/02/24 10:29:00 EDT, Height/Length Dosing, 104.5, kg, 03/14/24 9:55:00 EDT, Weight Dosing Start Date: 05/02/24 Stop Date: 07/01/24 Status: Ordered Start: 03-14-2024 End: 05-13-2024 take 1 tablet by mouth once daily at bedtime amitriptyline 10 mg Tab 10 mg = 1 tab(s), Oral, Once a day (at bedtime), X 30 day(s), # 30 tab(s), Refills(s) 1, Pharmacy: [facility]/pharmacy #[id number], 193, cm, 03/14/24 9:55:00 [...] day(s), # 90 tab(s), Refills(s) 0, Pharmacy: [facility]/pharmacy #[id number], 193, cm, 09/24/24 9:04:00 EST, Height/Length [...] q12hr, # 20 cap(s), Refills(s) 0, Pharmacy: [facility]/pharmacy #[id number], 193, cm, 08/19/24 7:28:00 EDT, Height/Length [...] procedure, # 14 tab(s), Refills(s) 0, Pharmacy: [facility]/pharmacy #[id number], 193, cm, 03/14/22 10:49:00 [...] day(s), # 60 cap(s), Refills(s) 1, Pharmacy: [facility]/pharmacy #[id number], 193, cm, 01/25/24 13:38:00 EDT, Height/Length Dosing, 102.4, kg, 01/25/24 13:38:00 EDT, Weight Dosing Start Date: 01/25/24 Stop Date: 03/25/24 Status: Ordered erythromycin 0.005 mg/mg ophthalmic ointment (1 source) Macrolide, Macrolide Antimicrobial Start: 02-07-2021 erythromycin ophthalmic 0.5% ointment 0.5 in, Eye-Both, QID, 3.5 gram, Refill(s) 1, [facility]/pharmacy #[id number], 192, cm, 02/03/21 8:57:00 [...] day(s), # 90 tab(s), Refills(s) 3, Pharmacy: [facility] ([facility]), 193, cm, 12/27/21 9:50:00 EST, [...] Marisol Connors MD Start : 26-Sep-2022 Active [place] 6-Xeu-Fee-Fish Oil (1 source) Start: 07-02-2017 take 1200 mg by mouth once daily [place] 9-Avz-Unv-Fish Oil Active 1200 MG Oral Daily July [...] BID, # 60 cap(s), Refills(s) 2, Pharmacy: [facility]/pharmacy #[id number], 193, cm, 11/09/23 11:29:00 EST, Height/Length Dosing, 110, kg, 11/09/23 11:29:00 EST, Weight Dosing Start Date: 11/09/23 Status: Ordered Start: 04-18-2023 End: 05-18-2023 take 1 capsule by mouth twice daily pregabalin 25 mg Cap 25 mg = 1 cap(s), Oral, BID, X 30 day(s), # 60 cap(s), Refills(s) 0, Pharmacy: [facility]/pharmacy #[id number], 193, cm, 03/19/23 8:54:00 EDT, Height/Length Dosing, 108.9, kg, 03/19/23 8:54:00 EDT, Weight Dosing Start Date: 04/18/23 Stop Date: 05/18/23 Status: Ordered Start: 03-19-2023 take 1 capsule by mo ut twice daily pregabalin 25 mg Cap 25 mg = 1 cap(s), Oral, BID, # 60 cap(s), Refills(s) 0, Pharmacy: [facility]/pharmacy #[id number], 193, cm, 03/19/23 8:54:00 [...] hrs., # 15 tab(s), Refills(s) 3, Pharmacy: [facility]/pharmacy #[id number], 193, cm, 08/31/22 9:11:00 [...] Pain, # 20 tab(s), Refills(s) 0, Pharmacy: [facility]/pharmacy #[id number], 192, cm, 02/03/21 8:57:00 [...] 8:09am docusate sodium 50 mg / sennosides, fpc 8.6 mg oral tablet (5 sources) Start: [...] 02, 2017 12:00am July 24, 2017 8:15am [place] 4-Uhm-Pfy-Fish Oil (Fi sh Oil) 1,000 mg (120 mg-180 mg) Capsule (5 sources) Start: 07-02-2017 End: 12-27-2023 [place] 7-Lpc-Qul-Fish Oil (Fi sh Oil) 1,000 mg (120 mg-180 mg) Capsule Discontinued 1200 MG PO Daily July 02, 2017 12:00am December 27, 2023 3:30pm Start: 07-02-2017 End: 12-27-2023 [place] 2-Cuo-Bgh-Fish Oil (Fi sh Oil) 1,000 mg (120 [...] Onset: 04-25-2022 Episodic Other aftercare (1 source) long-term (current) use of aspirin; Translations: [manager intermediate (current) use of aspirin] Onset: 04-25-2022 Episodic Other aftercare (1 source) manager intermediate (current) use of antithrombotics/antip latelets; Translations: [long-term (current) use of antithrombotics/antip latelets] Onset: 04-25-2022 [...] dislocation. Impression: Unremarkable right total knee arthroplasty. [facility] Radiology Study observation (narrative) [facility] Main OR Intraoperative Recor don 10-15-2024 Main OR Intraoperative Record Main OR Intraoperative Record IntraOp Document Type FTPM Summary Primary Physician: Bert Huang DO Finalized Date/Time: 08/19/24 10:42:12 Pt. Name: RIDGE ROLAND [place]/Sex: 1945 Male Med Rec #: [id number] Physician: Bert Huang DO Financial #: [id number] Pt. Type: P Room/Bed: / Admit/Disch: 08/19/24 [...] Chen Role Performed Anesthesiologist Surgeon - Primary Die Cast Engineer Ncr Operator Time In 08/19/24 08:11:00 08/19/24 08:11:00 08/19/24 [...] Tomasa Davidson Role Performed Scrub - Primary Topographical Surveyor - Primary Time In 08/19/24 08:11:00 08/19/24 [...] Last Modified By: Tomasa Kelly RN 08/19/24 08:06:19 Post-Care Text: The [...] and tissue Entry 1 Skin Integrity Intact, [place], Warm, & Skin Abnormality No Dry Outcomes [...] Yes Left (more content not included)... Normal [facility] Main OR Preoperative Recordo n 08-19-2024 Main OR Preoperative Record Main OR Preoperative Record Holding Area Document Type FTPM Summary Primary Physician: Bert Huang DO Finalized Date/Time: 08/19/24 07:57:29 Pt. Name: RIDGE ROLAND/Sex: 1945 Male Med Rec #: [id number] Physician: Bert Huang DO Financial #: [id number] Pt. 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.] wound was irrigated with sterile saline. The [employer] wave racebook writer alpha 16 pulse generator kit was [...] pocket. Then with the help of the assistant hvac mechanic both wounds were closed in a stepwise [...] antibiotics were provided. Correction to above: No marketing administrative assistant was utilized during this case. Closure was performed by myself. [facility] Comment on above: Result Comment: [...] list: All Problems Anticoagulated / SNOMED CT 356895482 / Confirmed At risk for falls / SNOMED CT 993731209 / Possible BMI 31.0-31.9,adult / SNOMED CT 672892605 / Confirmed BPH with urinary obstruction / SNOMED CT 5245498057 / Confirmed Chronic prostatitis / SNOMED CT 87277623 / Confirmed Dysuria / SNOMED CT 82480826 / Confirmed ED (erectile dysfunction) / SNOMED CT 9102391348 / Confirmed Elevated PSA / SNOMED CT 4785834509 / Confirmed Gross hematuria / SNOMED CT 206506656 / Confirmed Hernia, inguinal, right / SNOMED CT 052317030 / Confirmed Hypercholesterolemia / SNOMED CT 05244569 / Confirmed Impotence / SNOMED CT 2887612622 / Confirmed Incomplete bladder emptying / SNOMED CT 709661956 / Confirmed Incontinence without sensory awareness / SNOMED CT 6854465913 / Confirmed Leaking of urine / SNOMED CT 5479658616 / Confirmed Nocturia / SNOMED CT 783009543 / Confirmed Post-void dribbling / SNOMED CT 760502159 / Confirmed Prostate cancer screening / SNOMED CT 605295368 / Confirmed Urge incontinence / SNOMED CT 740233309 / Confirmed Urinary frequency / SNOMED CT 564299143 / Confirmed Urinary incontinence / SNOMED CT 3882630800 / Confirmed Urinary retention / SNOMED CT 135671021 / Confirmed Weak urinary stream / SNOMED CT 787722762 / Confirmed Resolved: Hypertension / SNOMED CT 6410076036 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 Normal [facility] MRSA Screenon 08-14-2024 MRSA DNA TRIPP+probe Ql (Unsp spec) Microbiology PROCEDURE: MRSA Screen [R1] SOURCE: Nasal BODY SITE: COLLECTED DATE/TIME: 08/12/2024 10:00 EDT RECEIVED DATE/TIME: 08/12/2024 11:08 EDT START DATE/TIME: 08/12/2024 11:08 EDT FREE TEXT SOURCE: Bert Huang DO, DO, Bradford A. FINAL REPORTS Final Report [] Verified Date/Time: 08/14/2024 10:10 EDT MRSA Negative. Performing Locations R1: This test was performed at: [facility], [address] [place] [address], [facility] , , [facility] Comment on above: Performed By: #### [id number] #### [facility] [address] [place] [address] Main OR Intraoperative Recor don 06-24-2024 Main OR Intraoperative Record Main OR Intraoperative Record IntraOp Document Type FTPM Summary Primary Physician: Bert Huang DO Finalized Date/Time: 06/24/24 09:11:34 Pt. Name: RIDGE ROLAND/Sex: 1945 Male Med Rec #: [id number] Physician: Bert uHang DO Financial #: [id number] Pt. Type: P Room/Bed: / Admit/Disch: 06/24/24 [...] J Role Performed Anesthesiologist Surgeon - Primary Topographical Surveyor - Primary Ncr Operator Time In 06/24/24 08:04:00 06/24/24 08:04:00 06/24/24 [...] Role Performed Scrub - Primary Anesthesiologist of Die Cast Engineer Record Time In 06/24/24 08:04:00 06/24/24 08:04:00 06/24/24 08:04:00 Time Out 06/24/24 09:10:00 06/24/24 09:10:00 06/24/24 09:10:00 Procedure SPINAL CORD STIMULATOR SPINAL CORD STIMULATOR SPINAL CORD STIMULATOR TRIAL(.) TRIAL(.) TRIAL(.) Comments Last Modified By: Roibn JENNINGS, Tomasa Kelly RN, Tomasa Kelly RN, Tomasa Davidson 06/24/24 09:11:29 06/24/24 09:11:29 06/24/24 09:11:29 Entry 7 Case Attendee Iris Sheffield Role Performed Die Cast Engineer Time In 06/24/24 08:04:00 Time Out 06/24/24 09:10:00 Procedure SPINAL CORD STIMULATOR TRIAL(.) Comments Last Modified By: Tomasa Kelly RN 06/24/24 09:11:29 General Comments: [employer] Lucretia Peterson Perioperative Protocols FTPM Pre-Care Text: [...] and tissue Entry 1 Skin Integrity Intact, [place], Warm, & Skin Abnormality No Dry Outcomes Met? Yes Last Modified By: Tomasa Kelly RN 06/24/24 07:37:40 Post-Care Text: The patient is free from (more content not included)... Normal [facility] Main OR Preoperative Recordo n 06-24-2024 Main OR Preoperative Record Main OR Preoperative Record Holding Area Document Type FTPM Summary Primary Physician: Bert Huang DO Finalized Date/Time: 06/24/24 07:19:15 Pt. Name: RIDGE ROLAND [place]/Sex: 1945 Male Med Rec #: [id number] Physician: Bert Huang DO Financial #: [id number] Pt. Type: Room/Bed: / Admit/Disch: 06/24/24 06:57:10 [...] By: Ramírez Samaniego RN 06/24/24 07:19 Normal [facility] Operative Reporton 4 Operative Report Operative Report Diagnosis: Lumbar postlaminectomy pain syndrome, M96.1. Chronic pain syndrome G89.29. Procedure: Spinal cord stimulator trial under fluoroscopic guidance with two 16 contact Infinion leads from [employer] and 2 click anchors, 14409. Analyze neurostimulator complex, 44145. Anesthesia: MAC Complications: None Description: After informed [...] the epidural space with confirmation using glass bdfc-ri-eqfoaaklwo syringe and lead was threaded at T12/L1. [...] regarding her spinal cord stimulator trial. Normal [facility] Comment on above: Result Comment: Elec [...] Locations R1: This test was performed at: [facility], [address] [place] [address], [address] [place] [address], [facility] Comment on above: Performed By: #### [id number] #### [facility] [address] [place] [address] Ambulatory Visit Summaryon 0 06-12-2024 Ambulatory Visit [...] AM EDT With: Bert Huang DO Where: [facility] Sunday 8:00 AM EDT With: Where: [facility] Sunday 8:45 AM EDT With: Stephenie Barrios PA-C Where: [facility] You Need to Schedule the Following Appointments Follow Up with ALANIS WODO PA-C, URL When: Comments: PRN Where: [address] [place] [address] Medications What How Much When [...] Any p (more content not included)... Normal [facility] Urology Office/Clinic Noteon 06-12-2024 Urology Office/Clinic Note [...] rashes or suspicious lesions Assessment/Plan saw DLS [id number] 1. 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 Patient Moderate 30-39 Min 37209 Urnls Dip Stick Auto w/o Microscopy POC 44494 2. Incomplete bladder emptying (R39.14: Feeling of incomplete bladder emptying) PVR (cc): 12/27/21 - 94 05/30/22 - 225 (after botox) 08/31/22 - 56 12/14/23 - 25 (random scan) *no scan at visit today-no bladder scanner IO* Ordered: E&M of Est. Patient Moderate 30-39 Min 62444 Urnls Dip Stick Auto w/o Microscopy POC 13089 3. BPH with urinary obstruction (N40.1: Benign prostatic hyperplasia with lower urinary tract symptoms) S/P TURP 04/28/20 by NIKOLAS S/p Cysto w/ UD 12/05/21 and 12/02/20 by NIKOLAS. IPSS 28 (severe sxs). Not currently taking any BPH medications. UA today shows trace-intact blood, negative for nitrites and leuks. see #1. Ordered: E&M of Est. Patient Moderate 30-39 Min 25089 Urnls Dip Stick Auto w/o Microscopy POC 70076 4. ED (erectile dysfunction) (N52.9: Male erectile [...] few wee (more content not included)... Normal [facility] Comment on above: Result Comment: Elec tronically Signed By: ALANIS WOOD PA-C\.br\Date and Time Signed: 06/12/24 11:06 EDT\.br\Electronically Co-Signed By: Radha Ohara\.br\Date and Time Co-Signed: 06/12/24 10:32 EDT Cholesterol in LDL Calc [Mas s/Vol]on 04-29-2024 Cholesterol in LDL [Mass/Vol] 59.0 mg/dL [facility] Comment on above: <100 mg/dl [id number] 0-129 mg/dl NEAR OR ABOVE [id number] mg/dl BORDERLINE [id number] mg/dl HIGH>190 mg/dl VERY HIGH Cholesterol in VLDL Calc [Ma ss/Vol]on 04-29-2024 Cholesterol in VLDL [Mass/Vol] 11.4 mg/dL [facility] Estimated glomerular filtrat ion rate (GFR) non- Americanon 04-29-2024 GFR/1.73 sq M.predicted among non-blacks MDRD (S/P/Bld) [Vol rate/Area] mL/min/{1.73_m2} >=60 [facility] Globulin Calc (S) [Mass/Vol] on 04-29-2024 Globulin (S) [Mass/Vol] 3.4 g/dL [facility] Laboratory - Chemistry and C hemistry - challengeon 04-29-2024 Albumin [Mass/Vol] 3.8 g/dL 3.4-5.0 [facility] ALP [Catalytic activity/Vol] 89 U/L 46-116 [facility] ALT [Catalytic activity/Vol] 24 U/L 16-63 [facility] AST [Catalytic activity/Vol] 14 U/L Low 15-37 [facility] Bilirubin [Mass/Vol] 0.9 mg/dL 0.2-1.0 [facility] Calcium [Mass/Vol] 9.5 mg/dL 8.5-10.1 [facility] Chloride [Moles/Vol] 99 mmol/L 98-107 [facility] Cholesterol [Mass/Vol] 138 mg/dL <=200 [facility] Cholesterol in HDL [Mass/Vol] 68 mg/dL High 40-60 [facility] Comment on above: > or =60 mg/dl - LOW CARDIOVASCULAR RISK<40 mg/dl - HIGH CARDIOVASCULAR RISK CO2 [Moles/Vol] 27.8 mmol/L 21.0-32.0 [facility] Creatinine [Mass/Vol] 0.82 mg/dL 0.70-1.30 [facility] GFR/1.73 sq M.predicted MDRD (S/P/Bld) [Vol rate/Area] mL/min/{1.73_m2} >=60 [facility] Glucose [Mass/Vol] 109 mg/dL High 74-106 [facility] Potassium [Moles/Vol] 3.8 mmol/L 3.5-5.1 [facility] Protein [Mass/Vol] 7.2 g/dL 6.4-8.2 [facility] Sodium [Moles/Vol] 137 mmol/L 136-145 [facility] Triglyceride [Mass/Vol] 57 mg/dL <=150 [facility] Urea nitrogen [Mass/Vol] 18.0 mg/dL 7.0-18.0 [facility] Urea nitrogen/Creatinine [Mass ratio] 22.0 mg/mg [facility] Serum or plasma albumin/glob ulin mass ratioon 04-29-2024 Albumin/Globulin [Mass ratio] 1.1 {ratio} [facility] Serum or plasma anion gap de terminationon 04-29-2024 Anion gap [Moles/Vol] 14.0 mmol/L [facility] Serum or plasma total choles terol/high density lipoprotein (HDL) cholesterol mass seema 04-29-2024 Cholesterol.total/Ch olesterol in HDL [Mass ratio] 2.0 {ratio} [facility] Comment on above: 3.3 - 4.4 LOW RISK4. 4 - 7.1 AVERAGE RISK7.1 - 11.0 MODERATE RISK>11.0 HIGH RISK Consent for Treatmenton 03-05 Consent for Treatment [id number]#1.00T IFF Normal [facility] Consultation Noteon 03-14-20 Consultation Note Patient: [...] day(s), # 60 cap(s), Refills(s) 1, Pharmacy: [facility]/pharmacy #[id number], 193, cm, 01/25/24 13:38:00 EDT, Height/Length Dosing, 102.4, kg, 01/25/24 13:38:00 EDT, Weight Dosing Viagra 50 mg Tab: See Instructions, 1-2 tab(s) po 1 hr before sexual acitivity. do not exceed 2 tabs in 24 hrs., # 15 tab(s), Refills(s) 3, [id number] 193, cm, 08/31/22 9:11:00 EDT, Height/Length Dosing, 114.5, kg, 08/31/22 9:11:00 EDT, Weight Dosing... amitriptyline 10 mg Tab: 10 mg = 1 tab(s), Oral, Once a day (at bedtime), X 30 day(s), # 30 tab(s), Refills(s) 1, Pharmacy: [facility]/pharmacy #[id number], 193, cm, 03/14/24 9:55:00 EDT, Height/Length Dosing, 104.5, kg, 03/14/24 9:55:00 EDT, Weight Dosing pregabalin 25 mg Cap: 25 mg = 1 cap(s), Oral, BID, # 60 cap(s), Refills(s) 2, [id number], 193, cm, 11/09/23 11:29:00 EST, Height/Length [...] list: All Problems Hypercholesterolemia / SNOMED CT 66504573 / Confirmed Hernia, inguinal, right / SNOMED CT 321330540 / Confirmed BPH with urinary obstruction / SNOMED CT 7606664447 / Confirmed Elevated PSA / SNOMED CT 0209172018 / Confirmed Impotence / SNOMED CT 9865231503 / Confirmed Urinary frequency / SNOMED CT 929145909 / Confirmed Nocturia / SNOMED CT 145441904 / Confirmed Weak urinary stream / SNOMED CT 140380959 / Confirmed Gross hematuria / SNOMED CT 985521319 / Confirmed Anticoagulated / SNOMED CT 722319115 / Confirmed Urge incontinence / SNOMED CT 260991844 / Confirmed Chronic prostatitis / SNOMED CT 78038948 / Confirmed Dysuria / SNOMED CT 17046298 / Confirmed Urinary retention / SNOMED CT 808739034 / Confirmed BMI 31.0-31.9,adult / SNOMED CT 190742830 / Confirmed Incomplete bladder emptying / SNOMED CT 583525948 / Confirmed Post-void dribbling / SNOMED CT 560396017 / Confirmed Incontinence without sensory awareness / SNOMED CT 8723362089 / Confirmed At risk for falls / SNOMED CT 133431577 / Possible ED (erectile dysfunction) / SNOMED CT 2419257801 / Confirmed Leaking of urine / SNOMED CT 9655889114 / Confirmed Urinary incontinence / SNOMED CT 5157187915 / Confirmed Prostate cancer screening / SNOMED CT 570166846 / Confirmed Resolved: Hypertension / SNOMED CT 2331082795 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 5/5 strength Integumentary: Warm, Dry, [place]. Neurologic: Alert, Oriented. Psy (more content not included)... Normal [facility] Comment on above: Result Comment: Elec tronically Signed By: Stephenie Barrios PA-C\.br\Date and Time Signed: 03/14/24 10:17 EDT Office/Clinic Note-Physician on 03-14-2024 Office/Clinic Note-Physician [id number]#1.00T IFF Normal [facility] Patient Correspondenceon Patient Correspondence [id number]#1.00T IFF Normal [facility] Patient Correspondence [id number]#1.00T IFF Normal [facility] Patient History Officeon Patient History Office [id number]#1.00T IFF Normal [facility] Consent for Treatmenton 01-04 Consent for Treatment [id number]#1.00 TIFF Normal [facility] Consultation Noteon 01-25-20 Consultation Note Patient: [...] day(s), # 60 cap(s), Refills(s) 1, [id number], 193, cm, 01/25/24 13:38:00 EDT, Height/Length Dosing, 102.4, kg, 01/25/24 13:38:00 EDT, Weight Dosing Viagra 50 mg Tab: See Instructions, 1-2 tab(s) po 1 hr before sexual acitivity. do not exceed 2 tabs in 24 hrs., # 15 tab(s), Refills(s) 3, [id number], 193, cm, 08/31/22 9:11:00 EDT, Height/Length Dosing, 114.5, kg, 08/31/22 9:11:00 EDT, Weight Dosing... pregabalin 25 mg Cap: 25 mg = 1 cap(s), Oral, BID, # 60 cap(s), Refills(s) 2, [id number], 193, cm, 11/09/23 11:29:00 EST, Height/Length [...] list: All Problems Hypercholesterolemia / SNOMED CT 25156251 / Confirmed Hernia, inguinal, right / SNOMED CT 840171263 / Confirmed BPH with urinary obstruction / SNOMED CT 1614753461 / Confirmed Elevated PSA / SNOMED CT 3665675208 / Confirmed Impotence / SNOMED CT 8329776592 / Confirmed Urinary frequency / SNOMED CT 595490384 / Confirmed Nocturia / SNOMED CT 915082925 / Confirmed Weak urinary stream / SNOMED CT 762364681 / Confirmed Gross hematuria / SNOMED CT 775937007 / Confirmed Anticoagulated / SNOMED CT 725941077 / Confirmed Urge incontinence / SNOMED CT 264855401 / Confirmed Chronic prostatitis / SNOMED CT 84896748 / Confirmed Dysuria / SNOMED CT 68685150 / Confirmed Urinary retention / SNOMED CT 367497569 / Confirmed BMI 31.0-31.9,adult / SNOMED CT 354736147 / Confirmed Incomplete bladder emptying / SNOMED CT 745165598 / Confirmed Post-void dribbling / SNOMED CT 444861682 / Confirmed Incontinence without sensory awareness / SNOMED CT 6927259256 / Confirmed At risk for falls / SNOMED CT 436771988 / Possible ED (erectile dysfunction) / SNOMED CT 2865820815 / Confirmed Leaking of urine / SNOMED CT 1058277963 / Confirmed Urinary incontinence / SNOMED CT 1811313191 / Confirmed Prostate cancer screening / SNOMED CT 017035494 / Confirmed Resolved: Hypertension / SNOMED CT 7396980514 Resolved: 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 Objective Vital Signs 01/25/2024 13:26 EDT Peripheral [...] 5/5 stre (more content not included)... [facility] [facility] Comment on above: Result Comment: Elec tronically Signed By: Sophie SHIPMAN, Stephenie\.br\Date and Time Signed: 01/25/24 13:48 EDT Office/Clinic Note-Physician on 01-25-2024 Office/Clinic Note-Physician [id number]#1.00 TIFF Normal [facility] Patient Correspondenceon Patient Correspondence [id number]#1.00 TIFF Normal [facility] Patient Correspondence [id number]#1.00 TIFF Normal [facility] Patient Correspondence [id number]#1.00 TIFF Normal [facility] Patient History Officeon Patient History Office [id number]#1.00 TIFF Normal [facility] Consent for Procedure/Surger yon 01-09-2024 Consent for Procedure/Surgery [id number]#1.00T IFF Normal [facility] Consent for Treatmenton Consent for Treatment [id number]#1.00T IFF [facility] Discharge Instructionson Discharge Instructions [id number]#1.00T IFF Normal [facility] IntraOperative Documentson 0 01-09-2024 IntraOperative Documents [id number]#1.00T IFF Normal [facility] Main OR Intraoperative Recor don 01-09-2024 Main OR Intraoperative Record IntraOp Document Type FTPM Summary Primary Physician: Bert Huang DO Finalized Date/Time: 01/09/24 11:31:11 Pt. Name: RIDGE ROLAND [place]/Sex: 1945 Male Med Rec #: [id number] Physician: Bert Huang DO Financial #: [id number] Pt. Type: P Room/Bed: / Admit/Disch: 01/09/24 [...] Tomasa Davidson Role Performed Surgeon - Primary Topographical Surveyor - Primary Scrub - Primary Time In 01/09/24 11:25:00 01/09/24 11:25:00 01/09/24 11:25:00 Time Out 01/09/24 11:31:00 01/09/24 11:31:00 01/09/24 11:31:00 Procedure SACROILIAC JOINT SACROILIAC JOINT SACROILIAC JOINT INJECTION(Bilateral) INJECTION(Bilateral) INJECTION(Bilateral) Comments Last Modified By: Gerry JENNINGS, Savannah Garrett RN, Savannah Tsai RN 01/09/24 11:31:02 01/09/24 11:31:02 01/09/24 11:31:02 Entry 4 Case Attendee Scott Craig Role Performed Die Cast Engineer Time In 01/09/24 11:25:00 Time Out 01/09/24 [...] and tissue Entry 1 Skin Integrity Intact, [place], Warm, and Skin Abnormality No Dry Outcomes [...] Met? Y (more content not included)... Normal [facility] Main OR Preoperative Recordo n 01-09-2024 Main OR Preoperative Record Holding Area Document Type FTPM Summary Primary Physician: Bert Huang DO Finalized Date/Time: 01/09/24 11:01:07 Pt. Name: RIGDE ROLAND/Sex: 1945 Male Med Rec #: [id number] Physician: Bert Huang DO Financial #: [id number] Pt. Type: P Room/Bed: / Admit/Disch: 01/09/24 [...] By: Anupama Huggins RN 01/09/24 11:01 Normal [facility] Automated epithelial cells c ount in urine sediment (number/area)on 12-24-2023 Epithelial cells Auto (Urine sed) [#/Area] FEW #/LPF NONE/RARE [facility] Automated leukocytes count i n urine sediment (number/area)on 12-24-2023 WBC Auto (Urine sed) [#/Area] NONE SEEN #/HPF 0-2 [facility] Automated urine specific gra vity by refractometryon 12-24-2023 Specific gravity Refractometry automated (U) [Rel density] 1.020 1.005-1.025 [facility] Basophils Auto (Bld) [#/Vol] on 12-24-2023 Basophils (Bld) [#/Vol] 0.0 10 3/uL 0.0-0.1 [facility] Basophils/100 WBC Auto (Bld) on 12-24-2023 Basophils/100 WBC (Bld) 0.4 % 0.2-2.0 [facility] Bilirubin Auto test strip (U ) [Mass/Vol]on 12-24-2023 Bilirubin (U) [Mass/Vol] Negative NEGATIVE [facility] Color Auto (U)on 12-24-2023 Color (U) YELLOW YELLOW [facility] Eosinophils/100 WBC Auto (Bl d)on 12-24-2023 Eosinophils/100 WBC (Bld) 0.9 % 0.9-7.0 [facility] Erythrocyte distribution wid th Auto (RBC) [Ratio]on 12-24-2023 Erythrocyte distribution width (RBC) [Ratio] 13.3 % 11.0-15.0 [facility] Estimated glomerular filtrat ion rate (GFR) non- Americanon 12-24-2023 GFR/1.73 sq M.predicted among non-blacks MDRD (S/P/Bld) [Vol rate/Area] mL/min/{1.73_m2} >=60 [facility] Hematocrit Auto (Bld) [Volum e fraction]on 12-24-2023 Hematocrit (Bld) [Volume fraction] 45.1 % 42.0-54.0 [facility] Hemoglobin [Mass/volume] in Bloodon 12-24-2023 Hemoglobin (Bld) [Mass/Vol] 15.3 g/dL 14.0-18.0 [facility] Ketones Auto test strip (U) [Mass/Vol]on 12-24-2023 Ketones (U) [Mass/Vol] Negative NEGATIVE [facility] Laboratory - Chemistry and C hemistry - challengeon 12-24-2023 Calcium [Mass/Vol] 9.1 mg/dL 8.5-10.1 [facility] Chloride [Moles/Vol] 102 mmol/L 98-107 [facility] CO2 [Moles/Vol] 25.5 mmol/L 21.0-32.0 [facility] Creatinine [Mass/Vol] 0.73 mg/dL 0.70-1.30 [facility] GFR/1.73 sq M.predicted MDRD (S/P/Bld) [Vol rate/Area] mL/min/{1.73_m2} >=60 [facility] Glucose [Mass/Vol] 113 mg/dL 74-106 [facility] Potassium [Moles/Vol] 3.8 mmol/L 3.5-5.1 [facility] Sodium [Moles/Vol] 138 mmol/L 136-145 [facility] Urea nitrogen [Mass/Vol] 13.0 mg/dL 7.0-18.0 [facility] Urea nitrogen/Creatinine [Mass ratio] 17.8 mg/mg [facility] Laboratory - Hematology and Cell countson 12-24-2023 Immature granulocytes/100 WBC (Bld) 0.6 % 0.0-0.5 [facility] Leukocytes [#/volume] correc yina for nucleated erythrocytes in Blood by Automated counon 12-24-2023 WBC corrected for nucl RBC Auto (Bld) [#/Vol] 9.5 10 3/uL 4.0-11.0 [facility] Lymphocytes Auto (Bld) [#/Vo l]on 12-24-2023 Lymphocytes (Bld) [#/Vol] 1.1 10 3/uL 1.2-3.8 [facility] Lymphocytes/100 WBC Auto (Bl d)on 12-24-2023 Lymphocytes/100 WBC (Bld) 11.5 % 20.5-60.0 [facility] MCH Auto (RBC) [Entitic mass ]on 12-24-2023 MCH (RBC) [Entitic mass] 31.2 pg 25.9-34.0 [facility] MCHC Auto (RBC) [Mass/Vol]on 12-24-2023 MCHC (RBC) [Mass/Vol] 33.9 g/dL 29.9-35.2 [facility] MCV Auto (RBC) [Entitic vol] on 12-24-2023 MCV (RBC) [Entitic vol] 92.0 fL 80.0-94.0 [facility] Monocytes Auto (Bld) [#/Vol] on 12-24-2023 Monocytes (Bld) [#/Vol] 0.7 10 3/uL 0.3-0.8 [facility] Monocytes/100 WBC Auto (Bld) on 12-24-2023 Monocytes/100 WBC (Bld) 7.7 % 1.7-12.0 [facility] Mucus LM Ql (Urine sed)on Mucus Ql (Urine sed) SMALL NONE SEEN [facility] Neutrophils Auto (Bld) [#/Vo l]on 12-24-2023 Neutrophils (Bld) [#/Vol] 7.5 10 3/uL 1.4-6.5 [facility] Neutrophils/100 WBC Auto (Bl d)on 12-24-2023 Neutrophils/100 WBC (Bld) 78.9 % 43.0-75.0 [facility] No Panel Informationon 12-24 Eosinophils # (Auto) 0.1 10 3/uL 0.0-0.7 [facility] Immature Granulocyte # (Auto) 0.06 10 3/uL 0.00-0.03 [facility] Platelet mean volume Auto (B ld) [Entitic vol]on 12-24-2023 Platelet mean volume (Bld) [Entitic vol] 10.7 fL 9.5-13.5 [facility] Platelets Auto (Bld) [#/Vol] on 12-24-2023 Platelets (Bld) [#/Vol] 197 10 3/uL 150-450 [facility] Protein Auto test strip (U) [Mass/Vol]on 12-24-2023 Protein (U) [Mass/Vol] Negative NEG/TRACE [facility] RBC Auto (Bld) [#/Vol]on RBC (Bld) [#/Vol] 4.90 10 6/uL 4.70-6.10 [facility] Serum or plasma anion gap de terminationon 12-24-2023 Anion gap [Moles/Vol] 14.3 mmol/L [facility] Specific gravity Auto test s trip (U) [Rel density]on 12-24-2023 Specific gravity (U) [Rel density] CLEAR CLEAR [facility] Urine bacteria detection by automated methodon 12-24-2023 Bacteria Auto Ql (U) NONE SEEN #/HPF NONE SEEN [facility] Urine glucose measurement by test strip (mass/volume)on 12-24-2023 Glucose Test strip (U) [Mass/Vol] Negative NEGATIVE [facility] Urine hemoglobin detection b y automated test stripon 12-24-2023 Hemoglobin Auto test strip Ql (U) Negative NEGATIVE [facility] Urine nitrite detection by a utomated test stripon 12-24-2023 Nitrite Auto test strip Ql (U) Negative NEGATIVE [facility] Urine sediment leukocyte cou nt by microscopy (number/high power field)on 12-24-2023 WBC LM.HPF (Urine sed) [#/Area] NONE SEEN #/HPF NONE SEEN [facility] Urobilinogen Auto test strip (U) [Mass/Vol]on 12-24-2023 Urobilinogen Qn (U) 0.2 {Kathia'U}/dL 0.2-1.0 [facility] pH Auto test strip (U)on pH (U) 6.5 [pH] 5.0-9.0 [facility] Patient Correspondenceon Patient Correspondence [id number]#1.00T IFF Normal [facility] Insurance Correspondence Off iceon 12-17-2023 Insurance Correspondence Office [id number]#2.00 TIFF Normal [facility] Patient Educationon 12-14-19 Patient Education Urology [...] stimulation). ? For women, using a medical officer to prevent urine leaks. This is a [...] urine. ? (more content not included)... Normal [facility] Urology Office/Clinic Noteon 12-14-2023 Urology Office/Clinic [...] Urology [address], [place] [address]- [phone] Additional Instructions: Patient Education Urinary Incontinence I, [...] guidance (05/01/ (more content not included)... Normal [facility] Comment on above: Result Comment: Elec tronically Signed By: DUC WALTERS, Homero Marie\.br\Date and Time Signed: 12/14/23 11:03 EST\.br\Electronically Co-Signed By: Lina Perkins\.amy\Date and Time Co-Signed: 12/14/23 11:01 EST Consent for Treatmenton Consent for Treatment [id number]#1.00T IFF Normal [facility] Consultation Noteon 12-10-19 Consultation Note Patient: KEILA [...] day(s), # 30 tab(s), Refills(s) 6, [id number], cm, 05/29/23 8:59:00 EDT, Height/Length Dosing, 108.9, kg, 03/19/23 8:54:00 EDT, Weight Dosing Viagra 50 mg Tab: See Instructions, 1-2 tab(s) po 1 hr before sexual acitivity. do not exceed 2 tabs in 24 hrs., # 15 tab(s), Refills(s) 3, [id number], 193, cm, 08/31/22 9:11:00 EDT, Height/Length Dosing, 114.5, kg, 08/31/22 9:11:00 EDT, Weight Dosing... pregabalin 25 mg Cap: 25 mg = 1 cap(s), Oral, BID, # 60 cap(s), Refills(s) 2, [id number], 193, cm, 11/09/23 11:29:00 EST, Height/Length [...] list: All Problems Hypercholesterolemia / SNOMED CT 34444819 / Confirmed Hernia, inguinal, right / SNOMED CT 446993113 / Confirmed BPH with urinary obstruction / SNOMED CT 1983645235 / Confirmed Elevated PSA / SNOMED CT 4459722262 / Confirmed Impotence / SNOMED CT 5309757196 / Confirmed Urinary frequency / SNOMED CT 491450434 / Confirmed Nocturia / SNOMED CT 689111374 / Confirmed Weak urinary stream / SNOMED CT 215472467 / Confirmed Gross hematuria / SNOMED CT 565177778 / Confirmed Anticoagulated / SNOMED CT 720130158 / Confirmed Urge incontinence / SNOMED CT 227054752 / Confirmed Chronic prostatitis / SNOMED CT 62973405 / Confirmed Dysuria / SNOMED CT 16128329 / Confirmed Urinary retention / SNOMED CT 847296719 / Confirmed BMI 31.0-31.9,adult / SNOMED CT 781760189 / Confirmed Incomplete bladder emptying / SNOMED CT 957367027 / Confirmed Post-void dribbling / SNOMED CT 467735299 / Confirmed Incontinence without sensory awareness / SNOMED CT 8993494554 / Confirmed At risk for falls / SNOMED CT 858472346 / Possible ED (erectile dysfunction) / SNOMED CT 8595376180 / Confirmed Leaking of urine / SNOMED CT 0762028612 / Confirmed Urinary incontinence / SNOMED CT 0530093301 / Confirmed Prostate cancer screening / SNOMED CT 518142708 / Confirmed Resolved: Hypertension / SNOMED CT 3326577964 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 Normal [facility] Comment on above: Result Comment: Elec tronically Signed By: Stephenie Barrios PA-C\.br\Date and Time Signed: 12/10/23 12:53 EST\.br\Electronically Co-Signed By: Bert Huang DO\.br\Date and Time Co-Signed: 12/11/23 09:21 EST Office/Clinic Note-Physician on 12-10-2023 Office/Clinic Note-Physician [id number]#1.00T IFF Normal [facility] Patient Correspondenceon Patient Correspondence [id number]#1.00T IFF Normal [facility] Patient Correspondence [id number]#1.00T IFF Normal [facility] Patient History Officeon Patient History Office [id number]#1.00T IFF Normal [facility] Consent for Treatmenton Consent for Treatment [id number]#1.00 TIFF Normal [facility] Consultation Noteon 11-09-19 Consultation Note Patient: [...] day(s), # 30 tab(s), Refills(s) 6, [id number], 193, cm, 05/29/23 8:59:00 EDT, Height/Length Dosing, 108.9, kg, 03/19/23 8:54:00 EDT, Weight Dosing Viagra 50 mg Tab: See Instructions, 1-2 tab(s) po 1 hr before sexual acitivity. do not exceed 2 tabs in 24 hrs., # 15 tab(s), Refills(s) 3, [id number], 193, cm, 08/31/22 9:11:00 EDT, Height/Length Dosing, 114.5, kg, 08/31/22 9:11:00 EDT, Weight Dosing... pregabalin 25 mg Cap: 25 mg = 1 cap(s), Oral, BID, # 60 cap(s), Refills(s) 2, [id number], 193, cm, 11/09/23 11:29:00 EST, Height/Length [...] list: All Problems Hypercholesterolemia / SNOMED CT 82840709 / Confirmed Hernia, inguinal, right / SNOMED CT 923167324 / Confirmed BPH with urinary obstruction / SNOMED CT 3061446325 / Confirmed Elevated PSA / SNOMED CT 6600948723 / Confirmed Impotence / SNOMED CT 7657277559 / Confirmed Urinary frequency / SNOMED CT 028336728 / Confirmed Nocturia / SNOMED CT 472707207 / Confirmed Weak urinary stream / SNOMED CT 293507396 / Confirmed Gross hematuria / SNOMED CT 264932227 / Confirmed Anticoagulated / SNOMED CT 129967510 / Confirmed Urge incontinence / SNOMED CT 324874956 / Confirmed Chronic prostatitis / SNOMED CT 06752283 / Confirmed Dysuria / SNOMED CT 55585872 / Confirmed Urinary retention / SNOMED CT 587429611 / Confirmed BMI 31.0-31.9,adult / SNOMED CT 954771406 / Confirmed Incomplete bladder emptying / SNOMED CT 800193958 / Confirmed Post-void dribbling / SNOMED CT 674240965 / Confirmed Incontinence without sensory awareness / SNOMED CT 8791123549 / Confirmed At risk for falls / SNOMED CT 030610687 / Possible ED (erectile dysfunction) / SNOMED CT 7592939593 / Confirmed Leaking of urine / SNOMED CT 4985623671 / Confirmed Urinary incontinence / SNOMED CT 8879007220 / Confirmed Prostate cancer screening / SNOMED CT 686967118 / Confirmed Resolved: Hypertension / SNOMED CT 7444169161 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 Injection sites well-healed Neurologic: Alert, Oriented. Psychiatric: Cooperative, Appropriate mood & affect. Impression and Plan Patient is a 78-year-old male with a past medical history significant for postlaminectomy syndrome, chronic pain, and lumbar spondylosis (more content not included)... Normal [facility] Comment on above: Result Comment: Elec tronically Signed By: Sophie SHIPMAN, Stephenie\.br\Date and Time Signed: 11/09/23 11:45 EST Legal Correspondence Officeo n 11-09-2023 Legal Correspondence Office [id number]#1.00 TIFF Normal [facility] Office/Clinic Note-Physician on 11-09-2023 Office/Clinic Note-Physician [id number]#1.00 TIFF Normal [facility] Patient Correspondenceon Patient Correspondence [id number]#1.00 TIFF Normal [facility] Patient Correspondence [id number]#1.00 TIFF Normal [facility] Patient Correspondence [id number]#1.00 TIFF Normal [facility] Patient Correspondence [id number]#1.00 TIFF Normal [facility] Patient History Officeon Patient History Office [id number]#1.00 TIFF Normal [facility] Consent for Procedure/Surger yon 10-08-2023 Consent for Procedure/Surgery [id number]#1.00 TIFF Normal [facility] Consent for Treatmenton Consent for Treatment [id number]#1.00 TIFF Normal [facility] Discharge Instructionson Discharge Instructions [id number]#1.00 TIFF Normal [facility] IntraOperative Documentson 1 12-09-2022 IntraOperative Documents [id number]#1.00 TIFF Normal [facility] Main OR Intraoperative Recor don 10-08-2023 Main OR Intraoperative Record IntraOp Document Type FTPM Summary Primary Physician: Bib Sanchez MD Finalized Date/Time: 10/08/23 08:08:45 Pt. Name: ASUNCION RIDGEVirginia SandsO.B./Sex: 1945 Male Med Rec #: [id number] Physician: Bib Sanchez MD Financial #: [id number] Pt. Type: P Room/Bed: / Admit/Disch: 10/08/23 [...] Savannah Lin Role Performed Surgeon - Primary Topographical Surveyor - Primary Scrub - Primary Time In 10/08/23 07:54:00 10/08/23 07:54:00 10/08/23 07:54:00 Time Out 10/08/23 08:09:00 10/08/23 08:09:00 10/08/23 08:09:00 Procedure LUMBAR RADIO FREQUENCY LUMBAR RADIO FREQUENCY LUMBAR RADIO FREQUENCY ABLATION(Bilateral) ABLATION(Bilateral) ABLATION(Bilateral) Comments Last Modified By: Robin JENNINGS, Tomasa Kelly RN, Tomasa Alexander RN 10/08/23 08:08:31 10/08/23 08:08:31 10/08/23 08:08:31 Entry 4 Case Attendee Soni MCNULTY(Frank)Adry Role Performed Die Cast Engineer Time In 10/08/23 07:54:00 Time Out 10/08/23 [...] and tissue Entry 1 Skin Integrity Intact, [place], Warm, and Skin Abnormality No Dry Outcomes [...] By Neto (more content not included)... Normal [facility] Main OR Preoperative Recordo n 10-08-2023 Main OR Preoperative Record Holding Area Document Type FTPM Summary Primary Physician: Bib Sanchez MD Finalized Date/Time: 10/08/23 07:19:53 Pt. Name: RIDGE ROLAND D.O.B./Sex: 1945 Male Med Rec #: [id number] Physician: Bib Sanchez MD Financial #: [id number] Pt. Type: P Room/Bed: / Admit/Disch: 10/08/23 [...] By: Sneha Beal RN 10/08/23 07:19 Normal [facility] Operative Reporton 3 Operative Report Patient: [...] side with the identical technique and medications. [place] were removed and bandages applied. The patient [...] EST Respiratory Rate 15 br/min . Normal [facility] Comment on above: Result Comment: Elec tronically Signed By: Laura WALTERS, Bib Jackson\.br\Date and Time Signed: 10/08/23 08:08 EST Patient Correspondenceon Patient Correspondence [id number]#1.00T IFF Normal [facility] Insurance Correspondence Off iceon 09-21-2023 Insurance Correspondence Office [id number]#2.00 TIFF [facility] Consent for Treatmenton 09-05 Consent for Treatment [id number]#1.00 TIFF [facility] Consultation Noteon 09-14-20 Consultation Note [...] day(s), # 30 tab(s), Refills(s) 6, Pharmacy: [facility]acy #[id number], 193, cm, 05/29/23 8:59:00 EDT, Height/Length Dosing, 108.9, kg, 03/19/23 8:54:00 EDT, Weight Dosing Viagra 50 mg Tab: See Instructions, 1-2 tab(s) po 1 hr before sexual acitivity. do not exceed 2 tabs in 24 hrs., # 15 tab(s), Refills(s) 3, Pharmacy: [facility]/pharmacy #[id number], 193, cm, 08/31/22 9:11:00 [...] list: All Problems Hypercholesterolemia / SNOMED CT 62996340 / Confirmed Hernia, inguinal, right / SNOMED CT 203834597 / Confirmed BPH with urinary obstruction / SNOMED CT 1809684223 / Confirmed Elevated PSA / SNOMED CT 7793449826 / Confirmed Impotence / SNOMED CT 6993011589 / Confirmed Urinary frequency / SNOMED CT 609767371 / Confirmed Nocturia / SNOMED CT 422258795 / Confirmed Weak urinary stream / SNOMED CT 930472829 / Confirmed Gross hematuria / SNOMED CT 374007859 / Confirmed Anticoagulated / SNOMED CT 058477317 / Confirmed Urge incontinence / SNOMED CT 649715429 / Confirmed Chronic prostatitis / SNOMED CT 07460381 / Confirmed Dysuria / SNOMED CT 95192816 / Confirmed Urinary retention / SNOMED CT 027652359 / Confirmed BMI 31.0-31.9,adult / SNOMED CT 351761890 / Confirmed Incomplete bladder emptying / SNOMED CT 965622155 / Confirmed Post-void dribbling / SNOMED CT 525994678 / Confirmed Incontinence without sensory awareness / SNOMED CT 8502997538 / Confirmed At risk for falls / SNOMED CT 052377975 / Possible ED (erectile dysfunction) / SNOMED CT 7235729245 / Confirmed Leaking of urine / SNOMED CT 7422650391 / Confirmed Urinary incontinence / SNOMED CT 7535170618 / Confirmed Prostate cancer screening / SNOMED CT 343582172 / Confirmed Resolved: Hypertension / SNOMED CT 7288495841 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 Injection site well-healed Neurologic: Alert, Oriented. Psychiatric: Cooperative, Appropriate mood & affect. Results Review Lumbar MRI report once again reviewed Impression and Plan Patient is a 77-year-old male with a past medical history significant cannot for lumbar spondylosis, postlaminectomy syndrome, and chronic low back pain. Patient underwent his second bilateral L3-4 and L4-5 facet med (more content not included)... Normal [facility] Comment on above: Result Comment: Elec tronically Signed By: Stephenie Barrios PA-C\.br\Date and Time Signed: 09/14/23 08:14 EST\.br\Electronically Co-Signed By: Bib Sanchez MD\.br\Date and Time Co-Signed: 09/24/23 12:00 EST Office/Clinic Note-Physician on 09-14-2023 Office/Clinic Note-Physician [id number]#1.00 TIFF Normal [facility] Patient Correspondenceon Patient Correspondence [id number]#1.00 TIFF Normal [facility] Patient Correspondence [id number]#1.00 TIFF Normal [facility] Patient Correspondence [id number]#1.00 TIFF Normal [facility] Patient History Officeon Patient History Office [id number]#1.00 TIFF Normal [facility] Consent for Procedure/Surger yon 09-04-2023 Consent for Procedure/Surgery [id number]#1.00 TIFF Normal [facility] Consent for Treatmenton 10 Consent for Treatment [id number]#1.00 TIFF Normal [facility] Discharge Instructionson Discharge Instructions [id number]#1.00 TIFF Normal [facility] IntraOperative Documentson 1 IntraOperative Documents [id number]#1.00 TIFF [facility] Main OR Intraoperative Recor don 09-04-2023 Main OR Intraoperative Record IntraOp Document Type FTPM Summary Primary Physician: Bib Sanchez MD Finalized Date/Time: 09/04/23 10:36:25 Pt. Name: RIDGE ROLAND John SortoB./Sex: 1945 Male Med Rec #: [id number] Physician: Bib Sanchez MD Financial #: [id number] Pt. Type: P Room/Bed: / Admit/Disch: 09/04/23 09:32:42 - Institution: Case Times FTPM Entry 1 Patient Times In Room 09/04/23 10:30:00 Out Room 09/04/23 10:37:00 Procedure Times Start 09/04/23 10:33:00 Stop 09/04/23 10:36:00 Anesthesia Times Last Modified By: Robin JENNINGS, Tomasa Davidson 09/04/23 10:36:09 Case Attendance FTPM Entry 1 Entry 2 Entry 3 Case Attendee Laura WALTERS, Bib Kelly RN, Tomasa Garrett RN, Rush Lin Role Performed Surgeon - Primary Topographical Surveyor - Primary Scrub - Primary Time In 09/04/23 10:30:00 09/04/23 10:30:00 09/04/23 10:30:00 Time Out 09/04/23 10:37:00 09/04/23 10:37:00 09/04/23 10:37:00 Procedure MEDIAL BRANCH MEDIAL BRANCH MEDIAL BRANCH BLOCK(Bilateral) BLOCK(Bilateral) BLOCK(Bilateral) Comments Last Modified By: Tomasa Kelly RN, RN, Kayla J Roderick RN, Kayla J 09/04/23 10:36:10 09/04/23 10:36:10 09/04/23 10:36:10 Entry 4 Case Attendee Scott Craig Role Performed Die Cast Engineer Time In 09/04/23 10:30:00 Time Out 09/04/23 [...] and tissue Entry 1 Skin Integrity Intact, [place], Warm, and Skin Abnormality No Dry Outcomes [...] 10:31:36 Post-Car (more content not included)... Normal [facility] Main OR Preoperative Recordo n 09-04-2023 Main OR Preoperative Record Holding Area Document Type FTPM Summary Primary Physician: Bib Sanchez MD Finalized Date/Time: 09/04/23 10:17:31 Pt. Name: RIDGE ROLAND /Sex: 1945 Male Med Rec #: [id number] Physician: Bib Sanchez MD Financial #: [id number] Pt. Type: P Room/Bed: / Admit/Disch: 09/04/23 09:32:42 - Institution: Case Times Holding FTPM Pre-Care Text: Verifies consent for planned procedure, identifies individual values and wishes concerning care, includes family members in perioperative teaching Secures patient's records' belongings, and valuables, maintains patient's dignity and privacy, and maintains patient confidentiality Entry 1 In Holding 09/04/23 09:48:00 Outcomes Met? Yes Last Modified By: Shraee Dominguez RN 09/04/23 09:48:04 Post-Care Text: The [...] By: Sharee Dominguez RN 09/04/23 10:17 Normal [facility] Operative Reporton 3 Operative Report Patient: [...] EDT Respiratory Rate 16 br/min . Normal [facility] Comment on above: Result Comment: Elec tronically Signed By: Bib Sanchez MD\.br\Date and Time Signed: 09/04/23 10:36 EDT Consent for Treatmenton 08-06 Consent for Treatment [id number] IFF Normal [facility] Consultation Noteon 08-28-20 Consultation Note Patient: [...] day(s), # 30 tab(s), Refills(s) 6, Pharmacy: [facility]/pharmacy #[id number], 193, cm, 05/29/23 8:59:00 EDT, Height/Length Dosing, 108.9, kg, 03/19/23 8:54:00 EDT, Weight Dosing Viagra 50 mg Tab: See Instructions, 1-2 tab(s) po 1 hr before sexual acitivity. do not exceed 2 tabs in 24 hrs., # 15 tab(s), Refills(s) 3, Pharmacy: [facility]/pharmacy #[id number], 193, cm, 08/31/22 9:11:00 [...] list: All Problems Anticoagulated / SNOMED CT 720429101 / Confirmed At risk for falls / SNOMED CT 504803606 / Possible BMI 31.0-31.9,adult / SNOMED CT 633185135 / Confirmed BPH with urinary obstruction / SNOMED CT 4427207870 / Confirmed Chronic prostatitis / SNOMED CT 71990077 / Confirmed Dysuria / SNOMED CT 75413091 / Confirmed ED (erectile dysfunction) / SNOMED CT 7521255237 / Confirmed Elevated PSA / SNOMED CT 9492359000 / Confirmed Gross hematuria / SNOMED CT 466025584 / Confirmed Hernia, inguinal, right / SNOMED CT 118753213 / Confirmed Hypercholesterolemia / SNOMED CT 26730849 / Confirmed Impotence / SNOMED CT 2548091955 / Confirmed Incomplete bladder emptying / SNOMED CT 884640543 / Confirmed Incontinence without sensory awareness / SNOMED CT 8179993034 / Confirmed Leaking of urine / SNOMED CT 1989058034 / Confirmed Nocturia / SNOMED CT 487264593 / Confirmed Post-void dribbling / SNOMED CT 414955593 / Confirmed Prostate cancer screening / SNOMED CT 596269175 / Confirmed Urge incontinence / SNOMED CT 219126236 / Confirmed Urinary frequency / SNOMED CT 580183483 / Confirmed Urinary incontinence / SNOMED CT 4493229247 / Confirmed Urinary retention / SNOMED CT 978532389 / Confirmed Weak urinary stream / SNOMED CT 363846380 / Confirmed Objective Vital Signs 08/28/2023 7:51 [...] to follow-up (more content not included)... Normal [facility] Comment on above: Result Comment: Elec tronically Signed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 98-107 [facility] CO2 28 mmol/L Normal 22-29 [facility] Creatinine 0.70 mg/dL Normal 0.70-1.20 [facility] eGFR (black) mL/min/{1.73_m2} Normal >60 [facility] Comment on above: Result Comment: >60 mL/min/1.73m2 EGFR, calc. for ages 18 and older using theMDRD formula (not corrected for weight), is valid for stablerenal function. eGFR (MDRD) mL/min/{1.73_m2} Normal >60 [facility] Comment on above: Result Comment: >60 mL/min/1.73m2 EGFR, calc. for ages 18 and older using theMDRD formula (not corrected for weight), is valid for stablerenal function. Glucose mass conc 105 mg/dL Normal 74-109 [facility] Potassium molar conc 3.7 mmol/L Normal 3.5-5.1 [facility] Sodium 141 mmol/L Normal 132-144 [facility] Urea nitrogen 14 mg/dL Normal 8-23 [facility] CBC With Platelet No Differe ntialon 04-10-2018 Erythrocyte distribution width Auto Ratio (RBC) 14.2 % Normal 11.5-14.5 [facility] Erythrocytes (RBC) 5.34 10*6/uL Normal 4.70-6.10 [facility] Hematocrit (HCT) 49.2 % Normal 42.0-52.0 [facility] Hemoglobin mass conc (Bld) 16.5 g/dL Normal 14.0-18.0 [facility] MCH 30.9 pg Normal 27.0-31.3 [facility] MCHC mass conc (RBC) 33.6 % Normal 33.0-37.0 [facility] MCV 92.1 fL Normal 80.0-100.0 [facility] Platelets 206 10*3/uL Normal 130-400 [facility] WBC (Leukocytes) 6.8 10*3/uL Normal 4.8-10.8 [facility] Culture, MRSA Screenon 04-10 Culture, MRSA Screen ORDERED BY: JAIME EUCEDACE: Nares Nose COLLECTED: 04/10/18 12:58ANTIBIOTICS AT JULI.: RECEIVED : 04/10/18 12:58Culture, MRSA Screen FINAL 04/11/18 11:22 No MRSA isolated Normal [facility] Prothrombin Timeon 8 INR Coag RelTime (PPP) 1.0 {INR} Normal [facility] Comment on above: Result Comment: Anastacio mmended [...] Coag time (PPP) 10.7 s Normal 9.6-12.3 [facility] Type and Screen Capture 3 sc rn cellaryan 04-10-2018 Bilirubin (total) PATIENT: ASUNCION Coleman LOC: CHOW BILL# : [id number] : 1945 SEX: MORDERED BY: KINSEY Underwood ORDERED : 04/10/2018 11:35 COLLECTED: 04/10/2018 13:00ORDER : [id number] RECEIVED : 04/10/2018 13:00 TEST NAME RESULT UNITS RANGES ABN FL STABORH Capture A POS FAntibody 3 Cell Scrn Captu NEG F --------- Normal [facility] Urinalysis, reflex to cultur aj 04-10-2018 Bilirubin Ql (U) Negative Normal Negative [facility] Urine Reflexed to Culture Not Indicated Normal [facility] Urine, clarity Clear Normal Clear [facility] Urine, color Yellow Normal Straw/Brown [facility] Urine, glucose presence Negative Normal Negative [facility] Urine, hemoglobin presence Negative Normal Negative [facility] Urine, ketones presence Negative Normal Negative [facility] Urine, leukocyte esterase presence Negative Normal Negative [facility] Urine, nitrite presence Negative Normal Negative [facility] Urine, pH 5.5 [pH] Normal 5.0-9.0 [facility] Urine, protein presence Negative Normal Negative [facility] Urine, specific gravity 1.009 Normal 1.005-1.03 [facility] Urine, urobilinogen 0.2 {Kathia'U}/dL Normal < 2.0 [facility] XR SPINE ENTIRE (2-3 VIEWS)o n 04-10-2018 [...] by:NATALIA Oliverigned by:Devang Scott MD6//inal result Normal [facility] Vital Signs Date Time Vital Sign Value Performing Clinician Facility 09-24-2024 08:51-0500 Diastolic blood pressure 74 mm[Hg] Bert Huang [facility] 09-24-2024 08:51-0500 Heart rate 73 /min Bert Huang [facility] 09-24-2024 08:51-0500 Mean blood pressure 97 mm[Hg] Bert Huang [facility] 09-24-2024 08:51-0500 Respiratory rate 16 /min Bert Huang [facility] 09-24-2024 08:51-0500 Systolic blood pressure 143 mm[Hg] Bert Huang [facility] 08-27-2024 10:58-0400 Diastolic blood pressure 83 mm[Hg] Stephenie Barrios [facility] 08-27-2024 10:58-0400 Heart rate 72 /min Stephenie Barrios [facility] 08-27-2024 10:58-0400 Mean blood pressure 105 mm[Hg] Stephenie Barrios [facility] 08-27-2024 10:58-0400 Respiratory rate 14 /min Stephenie Barrios [facility] 08-27-2024 10:58-0400 Systolic blood pressure 148 mm[Hg] Stephenie Barrios [facility] 08-19-2024 10:24-0400 Heart rate 79 /min Bert Huang [facility] 08-19-2024 10:24-0400 SaO2% (BldA) [Mass fraction] 98 % Bert Huang [facility] 08-19-2024 10:24-0400 Diastolic blood pressure 72 mm[Hg] Bert Huang [facility] 08-19-2024 10:24-0400 Mean blood pressure 93 mm[Hg] Bert Huang [facility] 08-19-2024 10:24-0400 Systolic blood pressure 135 mm[Hg] Bert Huang [facility] 08-19-2024 10:24-0400 Body temperature 97.88 [degF] Bert Huang [facility] 08-19-2024 10:24-0400 Respiratory rate 16 /min Bert Huang [facility] 08-19-2024 10:08-0400 Heart rate 77 /min Bert Huang [facility] 08-19-2024 10:08-0400 SaO2% (BldA) [Mass fraction] 95 % Bert Huang [facility] 08-19-2024 10:08-0400 Respiratory rate 16 /min Bert Huang [facility] 08-19-2024 10:07-0400 Diastolic blood pressure 86 mm[Hg] Noel Jerry [facility] 08-19-2024 10:07-0400 Mean blood pressure 99 mm[Hg] Noel Jerry [facility] 08-19-2024 10:07-0400 Systolic blood pressure 125 mm[Hg] Noel Jerry [facility] 08-19-2024 10:03-0400 Diastolic blood pressure 99 mm[Hg] Noel Jerry [facility] 08-19-2024 10:03-0400 Systolic blood pressure 120 mm[Hg] Bert Huang [facility] 08-19-2024 10:00-0400 Heart rate 83 /min Bert Huang [facility] 08-19-2024 10:00-0400 Respiratory rate 18 /min Noel Jerry [facility] 08-19-2024 10:00-0400 SaO2% (BldA) [Mass fraction] 97 % Bert Huang [facility] 08-19-2024 07:27-0400 Body temperature 97.52 [degF] Bert Huang [facility] 08-19-2024 07:27-0400 Mean blood pressure 100 mm[Hg] Bert Huang [facility] 08-12-2024 09:31-0400 Diastolic blood pressure 73 mm[Hg] Bert Huang [facility] 08-12-2024 09:31-0400 Heart rate 67 /min Bert Huang [facility] 08-12-2024 09:31-0400 Systolic blood pressure 125 mm[Hg] Bert Huang [facility] 07-15-2024 08:47-0400 Body height 193 cm Christopher Philippe DO Work Phone: [facility] 07-15-2024 08:47-0400 Body mass index (BMI) [Ratio] 28.85 kg/m2 Christopher Philippe DO Work Phone: [facility] 07-15-2024 08:47-0400 Body weight 107.5 kg Christopher Philippe DO Work Phone: [facility] 07-15-2024 08:47-0400 Diastolic blood pressure 82 mm[Hg] Christopher Philippe DO Work Phone: [facility] 07-15-2024 08:47-0400 Heart rate 72 /min Christopher Philippe DO Work Phone: [facility] 07-15-2024 08:47-0400 SaO2% (BldA) [Mass fraction] 98 % Christopher Philippe DO Work Phone: [facility] 07-15-2024 08:47-0400 Systolic blood pressure 126 mm[Hg] Christopher Philippe DO Work Phone: [facility] 07-02-2024 08:52-0400 Diastolic blood pressure 77 mm[Hg] Stephenie Valencell [facility] 07-02-2024 08:52-0400 Heart rate 67 /min Stephenie Valencell [facility] 07-02-2024 08:52-0400 Mean blood pressure 94 mm[Hg] Stephenie Valencell [facility] 07-02-2024 08:52-0400 Respiratory rate 14 /min Stephenie Valencell [facility] 07-02-2024 08:52-0400 Systolic blood pressure 127 mm[Hg] Stephenie Valencell [facility] 06-24-2024 09:23-0400 Heart rate 72 /min Bert Huang [facility] 06-24-2024 09:23-0400 SaO2% (BldA) [Mass fraction] 97 % Noel Jerry [facility] 06-24-2024 09:23-0400 Diastolic blood pressure 83 mm[Hg] Noel Jerry [facility] 06-24-2024 09:23-0400 Mean blood pressure 102 mm[Hg] Bert Huang [facility] 06-24-2024 09:23-0400 Systolic blood pressure 139 mm[Hg] Noel Jerry [facility] 06-24-2024 09:23-0400 Body temperature 97.52 [degF] Bert Jerry [facility] 06-24-2024 09:23-0400 Respiratory rate 16 /min Bert Huang [facility] 06-24-2024 09:13-0400 Heart rate 77 /min Noel Jerry [facility] 06-24-2024 09:13-0400 SaO2% (BldA) [Mass fraction] 97 % Bert Huang [facility] 06-24-2024 09:13-0400 Respiratory rate 16 /min Bert Huang [facility] 06-24-2024 09:12-0400 Diastolic blood pressure 71 mm[Hg] Bert Huang [facility] 06-24-2024 09:12-0400 Mean blood pressure 95 mm[Hg] Bert Huang [facility] 06-24-2024 09:12-0400 Systolic blood pressure 144 mm[Hg] Bert Huang [facility] 06-24-2024 09:06-0400 Diastolic blood pressure 71 mm[Hg] Bert Huang [facility] 06-24-2024 09:06-0400 Systolic blood pressure 119 mm[Hg] Bert Huang [facility] 06-24-2024 09:05-0400 Heart rate 75 /min Bert Huang [facility] 06-24-2024 09:05-0400 Respiratory rate 17 /min Bert Huang [facility] 06-24-2024 09:05-0400 SaO2% (BldA) [Mass fraction] 97 % Bert Huang [facility] 06-24-2024 07:22-0400 Mean blood pressure 107 mm[Hg] Bert Huang [facility] 06-24-2024 07:21-0400 Body temperature 98.06 [degF] Bert Huang [facility] 06-17-2024 08:17-0400 Diastolic blood pressure 77 mm[Hg] Bert Huang [facility] 06-17-2024 08:17-0400 Heart rate 77 /min Bert Huang [facility] 06-17-2024 08:17-0400 Systolic blood pressure 126 mm[Hg] Bert Huang [facility] 06-13-2024 08:59-0400 Body temperature 97.4 [degF] [facility] 06-13-2024 08:59-0400 Body weight 106.59 kg [facility] 06-13-2024 08:59-0400 Diastolic blood pressure 70 mm[Hg] [facility] 06-13-2024 08:59-0400 Heart rate 74 /min [facility] 06-13-2024 08:59-0400 SaO2% (BldA) [Mass fraction] 97 % [facility] 06-13-2024 08:59-0400 Systolic blood pressure 124 mm[Hg] [facility] 05-22-2024 09:56-0400 Body height 182.9 cm Marisol Connors MD Work Phone: [facility] 05-22-2024 09:56-0400 Body mass index (BMI) [Ratio] 31.46 kg/m2 Marisol Connors MD Work Phone: [facility] 05-22-2024 09:56-0400 Body weight 105.23 kg Marisol Connors MD Work Phone: [facility] 05-22-2024 09:56-0400 Diastolic blood pressure 72 mm[Hg] Marisol Connors MD Work Phone: [facility] 05-22-2024 09:56-0400 Heart rate 68 /min Marisol Connors MD Work Phone: [facility] 05-22-2024 09:56-0400 Systolic blood pressure 120 mm[Hg] Marisol Connors MD Work Phone: [facility] 05-07-2024 14:31-0400 Body height 193.04 cm [facility] 05-07-2024 14:31-0400 Body mass index (BMI) [Ratio] 28.4 kg/m2 [facility] 05-07-2024 14:31-0400 Body weight 105.85 kg [facility] 05-07-2024 14:31-0400 Diastolic blood pressure 79 mm[Hg] [facility] 05-07-2024 14:31-0400 Heart rate 78 /min [facility] 05-07-2024 14:31-0400 Respiratory rate 16 /min [facility] 05-07-2024 14:31-0400 Systolic blood pressure 151 mm[Hg] [facility] 05-02-2024 10:25-0400 Diastolic blood pressure 82 mm[Hg] Stephenie Barrios [facility] 05-02-2024 10:25-0400 Heart rate 79 /min Stephenie Barrios [facility] 05-02-2024 10:25-0400 Mean blood pressure 102 mm[Hg] Stephenie Barrios [facility] 05-02-2024 10:25-0400 Respiratory rate 14 /min Stephenie Barrios [facility] 05-02-2024 10:25-0400 Systolic blood pressure 143 mm[Hg] Stephenie Barrios [facility] 04-28-2024 10:15-0400 Body height 193.04 cm [facility] 04-28-2024 10:15-0400 Body mass index (BMI) [Ratio] 28.6 kg/m2 [facility] 04-28-2024 10:15-0400 Body weight 106.65 kg [facility] 04-28-2024 10:15-0400 Diastolic blood pressure 79 mm[Hg] [facility] 04-28-2024 10:15-0400 Heart rate 73 /min [facility] 04-28-2024 10:15-0400 Respiratory rate 12 /min [facility] 04-28-2024 10:15-0400 Systolic blood pressure 142 mm[Hg] [facility] 03-14-2024 09:47-0400 Diastolic blood pressure 74 mm[Hg] Stephenie Barrios [facility] 03-14-2024 09:47-0400 Heart rate 67 /min Stephenie Barrios [facility] 03-14-2024 09:47-0400 Mean blood pressure 92 mm[Hg] Stephenie Barrios [facility] 03-14-2024 09:47-0400 Respiratory rate 16 /min Stephenie Barrios [facility] 03-14-2024 09:47-0400 Systolic blood pressure 129 mm[Hg] Stephenie Barrios [facility] 01-25-2024 13:26-0400 Diastolic blood pressure 76 mm[Hg] Stephenie Barrios [facility] 01-25-2024 13:26-0400 Heart rate 71 /min Stephenie Barrios [facility] 01-25-2024 13:26-0400 Mean blood pressure 94 mm[Hg] Stephenie Barrios [facility] 01-25-2024 13:26-0400 Respiratory rate 16 /min Stephenie Barrios [facility] 01-25-2024 13:26-0400 Systolic blood pressure 130 mm[Hg] Stephenie Barrios [facility] 01-18-2024 14:37-0400 Body height 193.04 cm [facility] 01-18-2024 14:37-0400 Body mass index (BMI) [Ratio] 27.8 kg/m2 [facility] 01-18-2024 14:37-0400 Body weight 103.58 kg [facility] 01-18-2024 14:37-0400 Diastolic blood pressure 79 mm[Hg] [facility] 01-18-2024 14:37-0400 Heart rate 71 /min [facility] 01-18-2024 14:37-0400 Respiratory rate 16 /min [facility] 01-18-2024 14:37-0400 Systolic blood pressure 138 mm[Hg] [facility] 01-09-2024 11:34-0500 Heart rate 57 /min Bert Huang [facility] 01-09-2024 11:34-0500 SaO2% (BldA) [Mass fraction] 96 % Bert Huang [facility] 01-09-2024 11:34-0500 Diastolic blood pressure 93 mm[Hg] Bert Huang [facility] 01-09-2024 11:34-0500 Mean blood pressure 118 mm[Hg] Bert Huang [facility] 01-09-2024 11:34-0500 Systolic blood pressure 167 mm[Hg] Bert Huang [facility] 01-09-2024 11:33-0500 Respiratory rate 16 /min Bert Huang [facility] 01-09-2024 11:27-0500 Diastolic blood pressure 83 mm[Hg] Bert Huang [facility] 01-09-2024 11:27-0500 Heart rate 71 /min Bert Huang [facility] 01-09-2024 11:27-0500 Respiratory rate 14 /min Bert Huang [facility] 01-09-2024 11:27-0500 SaO2% (BldA) [Mass fraction] 98 % Bert Huang [facility] 01-09-2024 11:27-0500 Systolic blood pressure 154 mm[Hg] Bert Huang [facility] 01-09-2024 11:03-0500 Diastolic blood pressure 93 mm[Hg] Bert Huang [facility] 01-09-2024 11:03-0500 Heart rate 62 /min Bert Huang [facility] 01-09-2024 11:03-0500 Mean blood pressure 120 mm[Hg] Bert Huang [facility] 01-09-2024 11:03-0500 Systolic blood pressure 173 mm[Hg] Noel Huang [facility] 01-09-2024 11:01-0500 SaO2% (BldA) [Mass fraction] 96 % Bert Jerry [facility] 01-09-2024 11:00-0500 Mean blood pressure 123 mm[Hg] Bert Huang [facility] 01-09-2024 11:00-0500 Body temperature 97.7 [degF] Bert Huang [facility] 01-09-2024 11:00-0500 Respiratory rate 14 /min Bert Huang [facility] 12-31-2023 09:48-0500 Body height 193.04 cm [facility] 12-31-2023 09:48-0500 Body mass index (BMI) [Ratio] 27.6 kg/m2 [facility] 12-31-2023 09:48-0500 Body weight 102.73 kg [facility] 12-31-2023 09:48-0500 Diastolic blood pressure 81 mm[Hg] [facility] 12-31-2023 09:48-0500 Heart rate 68 /min [facility] 12-31-2023 09:48-0500 Respiratory rate 16 /min [facility] 12-31-2023 09:48-0500 Systolic blood pressure 129 mm[Hg] [facility] 12-14-2023 09:54-0500 Blood Pressure Location Homero XAVIER [facility] 12-14-2023 09:54-0500 Diastolic blood pressure 81 mm[Hg] Homero XAVIER [facility] 12-14-2023 09:54-0500 Heart rate 81 /min oHmero XAVIER [facility] 12-14-2023 09:54-0500 Respiratory rate 16 /min Homero XAVIER [facility] 12-14-2023 09:54-0500 Systolic blood pressure 137 mm[Hg] Homero XAVIER [facility] 12-10-2023 12:26-0500 Diastolic blood pressure 86 mm[Hg] Stephenie Barrios [facility] 12-10-2023 12:26-0500 Heart rate 60 /min Stephenie Barrios [facility] 12-10-2023 12:26-0500 Mean blood pressure 105 mm[Hg] Stepheniejakob Barrios [facility] 12-10-2023 12:26-0500 Respiratory rate 20 /min Stepheniejakob Barrios [facility] 12-10-2023 12:26-0500 Systolic blood pressure 144 mm[Hg] Stepheniejakob Barrios [facility] 11-14-2023 10:31-0500 Body height 182.9 cm Marisol Connors MD Work Phone: [facility] 11-14-2023 10:31-0500 Body mass index (BMI) [Ratio] 31.33 kg/m2 Marisol Connors MD Work Phone: [facility] 11-14-2023 10:31-0500 Body weight 104.78 kg Marisol Connors MD Work Phone: [facility] 11-14-2023 10:31-0500 Diastolic blood pressure 64 mm[Hg] Marisol Connors MD Work Phone: [facility] 11-14-2023 10:31-0500 Heart rate 62 /min Marisol Connors MD Work Phone: [facility] 11-14-2023 10:31-0500 Systolic blood pressure 100 mm[Hg] Marisol Connors MD Work Phone: [facility] 11-09-2023 11:14-0500 Diastolic blood pressure 76 mm[Hg] Stephenie Barrios [facility] 11-09-2023 11:14-0500 Heart rate 67 /min Stephenie Barrios [facility] 11-09-2023 11:14-0500 Mean blood pressure 95 mm[Hg] Stephenie Barrios [facility] 11-09-2023 11:14-0500 Respiratory rate 14 /min Stephenie Barrios [facility] 11-09-2023 11:14-0500 Systolic blood pressure 132 mm[Hg] Stephenie Barrios [facility] 10-23-2023 09:00-0500 Body height 193.04 cm Devang Ball Other [facility] 10-23-2023 09:00-0500 Body mass index (BMI) [Ratio] 28.31 kg/m2 Devang Ball Other [facility] [employer] Other 10-23-2023 09:00-0500 Body weight 105.51 kg Devang Ball Other [facility] [employer] Other 10-23-2023 09:00-0500 Body weight 105.5 kg [facility] 10-23-2023 09:00-0500 Diastolic blood pressure 83 mm[Hg] Devang Ball Other [facility] 10-23-2023 09:00-0500 Respiratory rate 12 /min Devang Ball Other [facility] [employer] Other 10-23-2023 09:00-0500 Systolic blood pressure 136 mm[Hg] Devang Ball Other [facility] 10-08-2023 08:11-0500 Heart rate 62 /min Bib Sanchez [facility] 10-08-2023 08:11-0500 SaO2% (BldA) [Mass fraction] 93 % Bib Laura [facility] 10-08-2023 08:11-0500 Diastolic blood pressure 98 mm[Hg] Bibrubi Sanchez [facility] 10-08-2023 08:11-0500 Mean blood pressure 124 mm[Hg] Bib Laura [facility] 10-08-2023 08:11-0500 Systolic blood pressure 175 mm[Hg] Bib Laura [facility] 10-08-2023 08:11-0500 Respiratory rate 16 /min Bib Laura [facility] 10-08-2023 08:02-0500 Diastolic blood pressure 90 mm[Hg] Bib Laura [facility] 10-08-2023 08:02-0500 Heart rate 63 /min Bib Laura [facility] 10-08-2023 08:02-0500 SaO2% (BldA) [Mass fraction] 97 % Bib Laura [facility] 10-08-2023 08:02-0500 Systolic blood pressure 168 mm[Hg] Bib Laura [facility] 10-08-2023 07:16-0500 Heart rate 61 /min Bib Laura [facility] 10-08-2023 07:16-0500 SaO2% (BldA) [Mass fraction] 95 % Bib Laura [facility] 10-08-2023 07:16-0500 Body temperature 97.88 [degF] Bib Laura [facility] 10-08-2023 07:16-0500 Diastolic blood pressure 91 mm[Hg] Bib Laura [facility] 10-08-2023 07:16-0500 Mean blood pressure 115 mm[Hg] Bib Laura [facility] 10-08-2023 07:16-0500 Systolic blood pressure 162 mm[Hg] Bib Laura [facility] 10-08-2023 07:12-0500 Respiratory rate 15 /min Bib Laura [facility] 09-14-2023 07:47-0500 Diastolic blood pressure 75 mm[Hg] Stephenie Barrios [facility] 09-14-2023 07:47-0500 Heart rate 63 /min Stephenie Barrios [facility] 09-14-2023 07:47-0500 Mean blood pressure 91 mm[Hg] Stephenie Barrios [facility] 09-14-2023 07:47-0500 Respiratory rate 16 /min Stephenie Barrios [facility] 09-14-2023 07:47-0500 Systolic blood pressure 124 mm[Hg] Stephenie Barrios [facility] 08-07-2023 13:25-0400 Heart rate 61 /min Bib Laura [facility] 08-07-2023 13:25-0400 SaO2% (BldA) [Mass fraction] 97 % Bib Laura [facility] 08-07-2023 13:25-0400 Diastolic blood pressure 90 mm[Hg] Bib Laura [facility] 08-07-2023 13:25-0400 Mean blood pressure 119 mm[Hg] Bib Laura [facility] 08-07-2023 13:25-0400 Systolic blood pressure 176 mm[Hg] Bib Laura [facility] 08-07-2023 13:19-0400 Diastolic blood pressure 83 mm[Hg] Bib Laura [facility] 08-07-2023 13:19-0400 Heart rate 65 /min Bib Laura [facility] 08-07-2023 13:19-0400 SaO2% (BldA) [Mass fraction] 95 % Bib Laura [facility] 08-07-2023 13:19-0400 Systolic blood pressure 153 mm[Hg] Bib Laura [facility] 08-07-2023 12:34-0400 Heart rate 62 /min Bib Laura [facility] 08-07-2023 12:34-0400 SaO2% (BldA) [Mass fraction] 95 % Bib Laura [facility] 08-07-2023 12:34-0400 Body temperature 97.7 [degF] Bib Laura [facility] 08-07-2023 12:34-0400 Diastolic blood pressure 73 mm[Hg] Bib Laura [facility] 08-07-2023 12:34-0400 Mean blood pressure 101 mm[Hg] Bib Laura [facility] 08-07-2023 12:34-0400 Systolic blood pressure 157 mm[Hg] Bib Laura [facility] 08-07-2023 12:33-0400 Respiratory rate 14 /min Bib Laura [facility] 05-11-2023 09:40-0400 Diastolic blood pressure 77 mm[Hg] Stephenie Barrios [facility] 05-11-2023 09:40-0400 Heart rate 68 /min Stephenie Barrios [facility] 05-11-2023 09:40-0400 Mean blood pressure 95 mm[Hg] Stephenie Barrios [facility] 05-11-2023 09:40-0400 Respiratory rate 14 /min Stephenie Barrios [facility] 05-11-2023 09:40-0400 Systolic blood pressure 130 mm[Hg] Stephenie Barrios [facility] 05-01-2023 14:39-0400 Heart rate 61 /min Bib Laura [facility] 05-01-2023 14:39-0400 SaO2% (BldA) [Mass fraction] 96 % Bib Laura [facility] 05-01-2023 14:39-0400 Diastolic blood pressure 80 mm[Hg] Bib Laura [facility] 05-01-2023 14:39-0400 Mean blood pressure 107 mm[Hg] Bib Laura [facility] 05-01-2023 14:39-0400 Systolic blood pressure 160 mm[Hg] Bib Laura [facility] 05-01-2023 14:39-0400 Respiratory rate 14 /min Bib Laura [facility] 05-01-2023 14:34-0400 Diastolic blood pressure 75 mm[Hg] Bib Laura [facility] 05-01-2023 14:34-0400 Heart rate 63 /min Bib Laura [facility] 05-01-2023 14:34-0400 Respiratory rate 14 /min Bib Laura [facility] 05-01-2023 14:34-0400 SaO2% (BldA) [Mass fraction] 98 % Bib Laura [facility] 05-01-2023 14:34-0400 Systolic blood pressure 149 mm[Hg] Bib Laura [facility] 05-01-2023 14:04-0400 Heart rate 60 /min Bib Sanchez [facility] 05-01-2023 14:04-0400 SaO2% (BldA) [Mass fraction] 94 % Bibrubi Sanchez [facility] 05-01-2023 14:04-0400 Diastolic blood pressure 78 mm[Hg] Bib Laura [facility] 05-01-2023 14:04-0400 Mean blood pressure 103 mm[Hg] Bib Sanchez [facility] 05-01-2023 14:04-0400 Systolic blood pressure 152 mm[Hg] Bib Sanchez [facility] 05-01-2023 14:04-0400 Body temperature 97.34 [degF] Bib Sanchez [facility] 05-01-2023 14:04-0400 Respiratory rate 14 /min Bib Sanchez [facility] 04-30-2023 09:00-0400 Body height 193.04 cm Devang Ball Other [facility] [employer] Other 04-30-2023 09:00-0400 Body mass index (BMI) [Ratio] 28.36 kg/m2 Devang Ball Other [facility] [employer] Other 04-30-2023 09:00-0400 Body weight 105.69 kg Devang Ball Other [facility] [employer] Other 04-30-2023 09:00-0400 Diastolic blood pressure 83 mm[Hg] Devang Ball Other [facility] [employer] Other 04-30-2023 09:00-0400 Respiratory rate 12 /min Devang Ball Other [facility] [employer] Other 04-30-2023 09:00-0400 Systolic blood pressure 135 mm[Hg] Devang Ball Other [facility] [employer] Other 03-19-2023 08:45-0400 Diastolic blood pressure 89 mm[Hg] Stephenie Barrios [facility] 03-19-2023 08:45-0400 Heart rate 67 /min Stephenie Barrios [facility] 03-19-2023 08:45-0400 Mean blood pressure 106 mm[Hg] Stephenie Barrios [facility] 03-19-2023 08:45-0400 Respiratory rate 20 /min Stephenie Barrios [facility] 03-19-2023 08:45-0400 Systolic blood pressure 140 mm[Hg] Stephenie Barrios [facility] 03-12-2023 09:15-0400 Heart rate 65 /min Bib Laura [facility] 03-12-2023 09:15-0400 SaO2% (BldA) [Mass fraction] 96 % Bib Laura [facility] 03-12-2023 09:15-0400 Diastolic blood pressure 92 mm[Hg] Bib Laura [facility] 03-12-2023 09:15-0400 Mean blood pressure 114 mm[Hg] Bib Laura [facility] 03-12-2023 09:15-0400 Systolic blood pressure 159 mm[Hg] Bib Laura [facility] 03-12-2023 09:15-0400 Respiratory rate 16 /min Bib Laura [facility] 03-12-2023 09:11-0400 Diastolic blood pressure 67 mm[Hg] Bib Laura [facility] 03-12-2023 09:11-0400 Heart rate 70 /min Bib Laura [facility] 03-12-2023 09:11-0400 Respiratory rate 14 /min Bib Laura [facility] 03-12-2023 09:11-0400 SaO2% (BldA) [Mass fraction] 94 % Bib Laura [facility] 03-12-2023 09:11-0400 Systolic blood pressure 160 mm[Hg] Bib Laura [facility] 03-12-2023 08:09-0400 Heart rate 71 /min Bib Laura [facility] 03-12-2023 08:09-0400 SaO2% (BldA) [Mass fraction] 95 % Bib Laura [facility] 03-12-2023 08:09-0400 Diastolic blood pressure 69 mm[Hg] Bib Laura [facility] 03-12-2023 08:09-0400 Mean blood pressure 102 mm[Hg] Bib Laura [facility] 03-12-2023 08:09-0400 Systolic blood pressure 168 mm[Hg] Bib Laura [facility] 03-12-2023 08:09-0400 Body temperature 97.52 [degF] Bib Laura [facility] 03-12-2023 08:09-0400 Respiratory rate 12 /min Bib Sanchez [facility] 03-08-2023 09:32-0400 Body height 193.04 cm Devang Bustillo Ball Work Phone: [facility] [employer] DO Work Phone: 03-08-2023 09:32-0400 Body mass index (BMI) [Ratio] 29.21 kg/m2 Devang E Ball Work Phone: [facility] [employer] 250 DO Work Phone: 03-08-2023 09:32-0400 Body surface area Derived from formula 2.39 m2 Devang E Ball Work Phone: [facility] [employer] 250 DO Work Phone: 03-08-2023 09:32-0400 Body weight 108.86 kg Devang E Ball Work Phone: [facility] 250 DO Work Phone: 03-08-2023 09:32-0400 Diastolic blood pressure 84 mm[Hg] Devang E Ball Work Phone: [facility] 250 DO Work Phone: 03-08-2023 09:32-0400 Heart rate 68 /min Devang E Ball Work Phone: [facility] 250 DO Work Phone: 03-08-2023 09:32-0400 Systolic blood pressure 132 mm[Hg] Devang E Ball Work Phone: [facility]Mar[facility]eth 250 DO Work Phone: 02-21-2023 14:00-0400 Body height 193.04 cm Allison Kenyon Other [employer] Other 02-21-2023 14:00-0400 Body mass index (BMI) [Ratio] 30.43 kg/m2 Allison Blades Other [employer] Other 02-21-2023 14:00-0400 Body weight 113.4 kg Allison Blades Other [employer] Other 02-21-2023 14:00-0400 Diastolic blood pressure 66 mm[Hg] Allison Blades Other [employer] Other 02-21-2023 14:00-0400 Systolic blood pressure 110 mm[Hg] Allison Blades Other [employer] Other 01-01-2023 10:00-0500 Body height 190.5 cm LUDWIN VUCETIC Other [facility] [employer] Other 01-01-2023 10:00-0500 Body mass index (BMI) [Ratio] 30.62 kg/m2 LUDWIN VUCETIC Other [facility] [employer] Other 01-01-2023 10:00-0500 Body weight 111.13 kg LUDWIN VUCETIC Other [facility] [employer] Other 01-01-2023 10:00-0500 Diastolic blood pressure 66 mm[Hg] LUDWIN VUCETIC Other [facility] [employer] Other 01-01-2023 10:00-0500 Respiratory rate 16 /min LUDWIN VUCETIC Other [facility] [employer] Other 01-01-2023 10:00-0500 Systolic blood pressure 118 mm[Hg] LUDWIN VUCETIC Other [facility] Other 11-29-2022 10:30-0500 Body height 193.04 cm Allison Blades Other [employer] Other 11-29-2022 10:30-0500 Body mass index (BMI) [Ratio] 29.84 kg/m2 Allison Blades Other [employer] Other 11-29-2022 10:30-0500 Body weight 111.22 kg Allison Blades Other [employer] Other 11-29-2022 10:30-0500 Diastolic blood pressure 84 mm[Hg] Allison Blades Other [employer] Other 11-29-2022 10:30-0500 Systolic blood pressure 138 mm[Hg] Allison Blades Other [employer] Other 11-28-2022 09:00-0500 Blood Pressure Location ALANIS NINA [facility] 11-28-2022 09:00-0500 Diastolic blood pressure 84 mm[Hg] ALANIS NINA [facility] 11-28-2022 09:00-0500 Heart rate 68 /min ALANIS NINA [facility] 11-28-2022 09:00-0500 Respiratory rate 16 /min ALANIS NINA [facility] 11-28-2022 09:00-0500 Systolic blood pressure 121 mm[Hg] ALANIS NINA [facility] 09-26-2022 09:33-0500 Body height 193.04 cm Devang E Ball Work Phone: [facility]Sxqcd[facility] [place] 250 DO Work Phone: 09-26-2022 09:33-0500 Body mass index (BMI) [Ratio] 29.7 kg/m2 Devang E Ball Work Phone: [facility]Rriayqjbq[facility]-[place] 250 DO Work Phone: 09-26-2022 09:33-0500 Body surface area Derived from formula 2.41 m2 Devang E Ball Work Phone: [facility]Fgbguwqrdp-Hrmhic [place] 250 DO Work Phone: 09-26-2022 09:33-0500 Body weight 110.68 kg Devang E Ball Work Phone: GY[facility]Wgatxtzdsm-Wjylxp [place] 250 DO Work Phone: 09-26-2022 09:33-0500 Diastolic blood pressure 78 mm[Hg] Devang E Ball Work Phone: ZF-Zocvxmkflu-Ltgiwq [place] 250 DO Work Phone: 09-26-2022 09:33-0500 Heart rate 76 /min Devang E Ball Work Phone: [facility]Qhmaththyk-Oztdqm [place] 250 DO Work Phone: 09-26-2022 09:33-0500 Systolic blood pressure 120 mm[Hg] Devang E Ball Work Phone: [facility]-Ywhurkwslt-Xpgecj [place] 250 DO Work Phone: 03-28-2022 13:43-0400 Body height 193.04 cm Devang E Ball Work Phone: [facility] 250 DO Work Phone: 03-28-2022 13:43-0400 Body mass index (BMI) [Ratio] 28.48 kg/m2 Devang E Ball Work Phone: [facility] 250 DO Work Phone: 03-28-2022 13:43-0400 Body surface area Derived from formula 2.37 m2 Devang Bustillo Ball Work Phone: [facility] 250 DO Work Phone: 03-28-2022 13:43-0400 Body weight 106.14 kg Devang E Ball Work Phone: [facility] 250 DO Work Phone: 03-28-2022 13:43-0400 Diastolic blood pressure 60 mm[Hg] Devang Bustillo Ball Work Phone: [facility] 250 DO Work Phone: 03-28-2022 13:43-0400 Heart rate 88 /min Devang Bustillo Ball Work Phone: [facility] 250 DO Work Phone: 03-28-2022 13:43-0400 Systolic blood pressure 100 mm[Hg] Devang Hall Work Phone: [facility] 250 DO Work Phone: Encounters Encounter Date Encounter Type Care Provider Facility Start: 11-12-2024 End: 11-12-2024 Hector Garay DO Work Phone: [facility] Start: 11-12-2024 End: 11-12-2024 Hector Garay DO Work Phone: [facility] Start: 11-12-2024 End: 11-12-2024 ambulatory ANDREW CRUZ Not Available Start: 11-12-2024 End: 11-12-2024 Office outpatient visit 25 minutes Jr. Andrew Garay DO Work Phone: [facility] Comment on above: Swelling of joint of right knee (Primary Dx); Right knee pain, unspecified chronicity Start: 11-12-2024 End: 11-12-2024 ambulatory ANDREW CRUZ Not Available Start: 09-24-2024 End: 09-24-2024 ambulatory DEVANG HALL Facility:[facility] Start: 09-24-2024 End: 09-24-2024 Patient encounter procedure Bert Huang [facility] Start: 08-27-2024 End: 08-27-2024 ambulatory DEVANG HALL Facility:[facility] Start: 08-27-2024 End: 08-27-2024 Patient encounter procedure Stephenie Barrios [facility] Start: 08-19-2024 End: 08-19-2024 ambulatory Bert Huang Facility:[facility] Start: 08-19-2024 End: 08-19-2024 Pain Management Bert Huang [facility] Start: 08-14-2024 End: 08-14-2024 Bamboo flowsheet Philip [...] Start: 08-12-2024 End: 08-12-2024 ambulatory Bert Huang Facility:[facility] Start: 08-12-2024 End: 08-12-2024 Patient encounter procedure Bert Huang [facility] Start: 08-11-2024 End: 08-12-2024 ambulatory Jenny Alvarenga [employer] [facility] Comment on above: Acute pain of left k nee (Primary Dx); Poor balance; History of fall; Difficulty walking; Leg weakness, bilateral; Foot drop, right foot; History of falling; Left hip impingement syndrome; Right hip impingement syndrome Start: 08-11-2024 End: 08-11-2024 Bamboo flowsheet Jenny Alvarenga [facility] [employer] Start: 08-11-2024 End: 08-11-2024 Bamboo flowsheet Jenny Alvarenga [employer] [employer] Start: 08-07-2024 End: 08-07-2024 Bamboo flowsheet Jenny Alvarenga [facility] [employer] Start: 08-07-2024 End: 08-07-2024 Bamboo flowsheet Jenny Alvarenga [facility] [employer] Start: 08-07-2024 End: 08-07-2024 ambulatory Jenny Alvarenga [facility] [employer] Comment on above: Acute pain of left k nee (Primary Dx); Poor balance; History of fall; Difficulty walking; Leg weakness, bilateral; Foot drop, right foot; History of falling; Left hip impingement syndrome; Right hip impingement syndrome Start: 08-05-2024 End: 08-05-2024 Bamboo flowsheet Jenny Alvarenga [facility] Start: 08-05-2024 End: 08-05-2024 Bamboo flowsheet Jenny Alvarenga [facility] [employer] Start: 08-05-2024 End: 08-05-2024 ambulatory Jenny Alvarenga [facility] [employer] Comment on above: Acute pain of left k nee (Primary Dx); Poor balance; History of fall; Difficulty walking; Leg weakness, bilateral; Foot drop, right foot; History of falling; Left hip impingement syndrome; Right hip impingement syndrome Start: 07-31-2024 End: 07-31-2024 Bamboo flowsheet Tita Gaspary [facility] [employer] Start: 07-31-2024 End: 07-31-2024 Bamboo flowsheet Tita Gaspary [facility] [employer] Start: 07-31-2024 End: 07-31-2024 ambulatory Tita Gaspary [facility] [employer] Comment on above: Acute pain of left k nee (Primary Dx); Poor balance; History of fall; Difficulty walking; Leg weakness, bilateral; Foot drop, right foot; History of falling Start: 07-29-2024 End: 07-29-2024 Bamboo flowsheet Jenny Buiink [facility] [employer] Start: 07-29-2024 End: 07-29-2024 Bamboo flowsheet Jenny Buiink [facility] [employer] Start: 07-29-2024 End: 07-29-2024 ambulatory Jenny Buiink [facility] [employer] Comment on above: Acute pain of left k nee (Primary Dx); Poor balance; History of fall; Difficulty walking; Leg weakness, bilateral; Foot drop, right foot; History of falling; Left hip impingement syndrome; Right hip impingement syndrome Start: 07-24-2024 End: 07-24-2024 Bamboo flowsheet Jenny Brink [facility] [employer] Start: 07-24-2024 End: 07-24-2024 Bamboo flowsheet Jenny Buiink [facility] [employer] Start: 07-24-2024 End: 07-24-2024 ambulatory Jenny Alvarenga [facility] [employer] Comment on above: Acute pain of left k nee (Primary Dx); History of fall; Poor balance; Difficulty walking; Leg weakness, bilateral; Foot drop, right foot; History of falling; Left hip impingement syndrome; Right hip impingement syndrome Start: 07-22-2024 End: 07-22-2024 Bamboo flowsheet Jenny Buiink [facility] [employer] Start: 07-22-2024 End: 07-22-2024 Bamboo flowsheet Jenny Buiink [facility] [employer] Start: 07-22-2024 End: 07-22-2024 ambulatory Jenny Alvarenga [facility] [employer] Comment on above: Acute pain of left k nee (Primary Dx); History of fall; Poor balance; Difficulty walking; Leg weakness, bilateral; Foot drop, right foot; History of falling; Left hip impingement syndrome; Right hip impingement syndrome Start: 07-17-2024 End: 07-17-2024 Bamboo flowsheet Patti uGzmantersall [facility] [employer] Start: 07-17-2024 End: 07-17-2024 Bamboo flowsheet Patti Tattersall [facility] [employer] Start: 07-17-2024 End: 07-17-2024 ambulatory Patti Guzmantersall [facility] [employer] Comment on above: Acute pain of left k nee (Primary Dx); History of fall; Poor balance; Leg weakness, bilateral Start: 07-15-2024 End: 07-15-2024 Bamboo flowsheet Ramírez Paez DO [facility] Start: 07-15-2024 End: 07-15-2024 Bamboo flowsheet Ramírez Paez DO [facility] Start: 07-15-2024 End: 07-15-2024 Office outpatient new 45 minutes Ramírez Paez DO Work Phone: [facility] Comment on above: Multilevel degenerat michelle disc disease (Primary Dx); Hypophonia Start: 07-15-2024 End: 07-15-2024 ambulatory Jenny Brink [facility] [employer] Comment on above: Acute pain of left k nee (Primary Dx); History of fall; Poor balance; Leg weakness, bilateral; Difficulty walking; Foot drop, right foot; History of falling; Left hip impingement syndrome; Right hip impingement syndrome Start: 07-10-2024 End: 07-10-2024 Bamboo flowsheet Jenny Brink [facility] [employer] Start: 07-10-2024 End: 07-10-2024 Bamboo flowsheet Jenny Brink STORES CLERK [facility] Start: 07-10-2024 End: 07-10-2024 ambulatory Jenny Brink STORES CLERK [facility] Comment on above: Acute pain of left k nee (Primary Dx); History of fall; Poor balance; Leg weakness, bilateral; Difficulty walking; Foot drop, right foot; History of falling; Left hip impingement syndrome; Right hip impingement syndrome Start: 07-08-2024 End: 07-08-2024 Bamboo flowsheet Jenny Brink STORES CLERK [facility] Start: 07-08-2024 End: 07-08-2024 Bamboo flowsheet Jenny Brink STORES CLERK [facility] Start: 07-08-2024 End: 07-08-2024 Telephone encounter Jr. Andrew Garay DO Work Phone: [facility] Comment on above: Dentist Start: 07-08-2024 End: 07-08-2024 ambulatory Jenny Alvarenga STORES CLERK [facility] Comment on above: Acute pain of left k nee (Primary Dx); History of fall; Poor balance; Foot drop, right foot; Difficulty walking; Leg weakness, bilateral; History of falling; Left hip impingement syndrome; Right hip impingement syndrome Start: 07-03-2024 End: 07-03-2024 Bamboo flowsheet Patti Miranda STORES CLERK [facility] Start: 07-03-2024 End: 07-03-2024 Bamboo flowsheet Patti Miranda STORES CLERK [facility] Start: 07-03-2024 End: 07-03-2024 ambulatory Ptati Miranda STORES CLERK [facility] Comment on above: Acute pain of left k nee (Primary Dx); History of fall; Poor balance; Foot drop, right foot Start: 07-02-2024 End: 07-02-2024 ambulatory Stephenie Barrios Facility:[facility] Start: 07-02-2024 End: 07-02-2024 Pain Management Stephenie Barrios [facility] Start: 06-24-2024 End: 06-24-2024 ambulatory Bert Huang Facility:[facility] Start: 06-24-2024 End: 06-24-2024 Pain Management Bert Huang [facility] Start: 06-23-2024 End: 06-23-2024 ambulatory MERLIN GERBER Not Available Start: 06-19-2024 End: 06-19-2024 ambulatory JENNY BRCARLOS Not Available Start: 06-17-2024 End: 06-17-2024 Patient encounter procedure Bert Huang [facility] Start: 06-17-2024 End: 06-17-2024 ambulatory Bert Huang Facility:[facility] Start: 06-17-2024 End: 06-17-2024 Pain Management Bert Huang [facility] Start: 06-17-2024 End: 06-17-2024 ambulatory JENNY ALVARENGA Not Available Start: 06-13-2024 End: 06-13-2024 ambulatory [facility] Work Phone: Start: 06-13-2024 End: 06-13-2024 Patient encounter procedure [facility] Work Phone: Start: 06-12-2024 End: 06-12-2024 ambulatory ALANIS WOOD Facility:[facility] Start: 06-12-2024 End: 06-12-2024 Patient encounter procedure ALANIS WOOD [facility] Start: 06-10-2024 End: 06-10-2024 ambulatory [...] 25 minutes Marisol Connors MD Work Phone: [facility] Comment on above: Arteriosclerosis of coronary artery (Primary Dx); Essential hypertension; Dyslipidemia; Status post coronary angioplasty; BMI 31.0-31.9,adult; Former smoker; At risk for falls; Idiopathic peripheral neuropathy Start: 05-22-2024 End: 05-22-2024 ambulatory MARISOL Gao [facility] Ambulatory Start: 05-13-2024 End: 05-13-2024 ambulatory FATOUMATA MONTES Not Available Start: 05-07-2024 End: 05-07-2024 ambulatory [facility] Work Phone: Start: 05-07-2024 End: 05-07-2024 Patient encounter procedure [facility] Physician [facility] Work Phone: Start: 05-02-2024 End: 05-02-2024 ambulatory DEVANG HALL Facility:[facility] Start: 05-02-2024 End: 05-02-2024 Pain Management Stephenie Barrios [facility] Start: 04-29-2024 Non-patient / Non-visit [facility] Physician [facility] [employer] Work Phone: Start: 04-28-2024 End: 04-28-2024 ambulatory [facility] Work Phone: Start: 04-28-2024 End: 04-28-2024 Patient encounter procedure [facility] Work Phone: Start: 03-14-2024 End: 03-14-2024 ambulatory PA-C Stephenie Barrios Facility:[facility] Start: 03-14-2024 End: 03-14-2024 Pain Management Stephenie Barrios [facility] Start: 02-25-2024 End: 02-25-2024 ambulatory ANDREW CRUZ Not Available Start: 01-25-2024 End: 01-25-2024 ambulatory PA-C Stephenie Barrios Facility:[facility] Start: 01-25-2024 End: 01-25-2024 Pain Management Stephenie Barrios [facility] Start: 01-18-2024 End: 01-18-2024 ambulatory [facility] Work Phone: Start: 01-18-2024 End: 01-18-2024 Patient encounter procedure [facility] Physician [facility] Work Phone: Start: 01-09-2024 End: 01-09-2024 ambulatory Bert Huang Facility:[facility] Start: 01-09-2024 End: 01-09-2024 Pain Management Bert Huang [facility] Start: 12-31-2023 End: 12-31-2023 ambulatory [facility] Work Phone: Start: 12-31-2023 End: 12-31-2023 Patient encounter procedure [facility] Physician [facility] Work Phone: Start: 12-24-2023 Non-patient / Non-visit [facility] Physician [facility] [employer] Work Phone: Start: 12-14-2023 End: 12-14-2023 ambulatory Homero XAVIER Facility:[facility] Start: 12-14-2023 End: 12-14-2023 Patient encounter procedure Homero XAVIER [facility] Start: 12-11-2023 End: 12-11-2023 ambulatory ALANIS WOOD Facility:[facility] Start: 12-10-2023 End: 12-10-2023 ambulatory PA-C Stephenie Barrios Facility:[facility] Start: 12-10-2023 End: 12-10-2023 Pain Management Stephenie Barrios [facility] Start: 11-28-2023 End: 11-28-2023 ambulatory Devang Hall Other [facility] [employer] Other Start: 11-28-2023 Telephone encounter Devang Hall [facility] Start: 11-14-2023 End: 11-14-2023 Office outpatient visit 25 minutes Marisol Connors MD Work Phone: [facility] Comment on above: Arteriosclerosis of coronary artery (Primary Dx); Status post coronary angioplasty; Dyslipidemia; Essential hypertension; Obesity (BMI 30.0-34.9); At risk for falls Start: 11-14-2023 End: 11-14-2023 ambulatory PARRA [facility] Ambulatory Start: 11-09-2023 End: 11-09-2023 ambulatory RAMONITA Barrios Facility:[facility] Start: 11-09-2023 End: 11-09-2023 Pain Management Stephenie Barrios [facility] Start: 10-23-2023 End: 10-23-2023 ambulatory Devang Hall Other [facility] [employer] Other Start: 10-23-2023 Office outpatient vi sit 25 minutes Devang [facility] Start: 10-23-2023 End: 10-23-2023 Patient encounter procedure [facility] Work Phone: Start: 10-08-2023 End: 10-08-2023 ambulatory Bib Manuel Sanchez Facility:[facility] Start: 10-08-2023 End: 10-08-2023 Pain Management Bib D Laura [facility] Start: 09-14-2023 End: 09-14-2023 ambulatory DEVANG HALL Facility:[facility] Start: 09-14-2023 End: 09-14-2023 Pain Management Stephenie Barrios [facility] Start: 09-04-2023 End: 09-04-2023 ambulatory Bib D Laura Facility:[facility] Start: 08-28-2023 End: 08-28-2023 ambulatory Bib D Laura Facility:[facility] Start: 08-07-2023 End: 08-07-2023 ambulatory Bib D Laura Facility:[facility] Start: 08-07-2023 End: 08-07-2023 Pain Management Bib D Laura [facility] Start: 05-11-2023 End: 05-11-2023 Pain Management Stephenie Barrios [facility] Start: 05-03-2023 End: 05-03-2023 ambulatory Devang Hall Other [employer] Other Start: 05-03-2023 Telephone encounter Devang Hall [facility] Start: 05-01-2023 End: 05-01-2023 ambulatory Devang Hall Other [employer] Other Start: 05-01-2023 Telephone encounter Devang Hall [facility] Start: 05-01-2023 End: 05-01-2023 Pain Management Bib Sanchez [facility] Start: 04-30-2023 End: 04-30-2023 ambulatory Devang Hall Other [employer] Other Start: 04-30-2023 Patient encounter procedure Devang Hall [facility] Start: 03-19-2023 End: 03-19-2023 Pain Management Stepheniejakob Barrios [facility] Start: 03-14-2023 End: 03-15-[address] MARISOL CONNORS Facility:[facility] Start: 03-12-2023 End: 03-13-[address] MARISOL CONNORS Facility:[facility] Start: 03-12-2023 End: 03-12-2023 Pain Management Bib Sanchez [facility] Start: 03-08-2023 FUV, Provider: Marisol Connors, Status: Pen, Time: 9:50 AM Devang Hall Work Phone: [facility] 250 DO Work Phone: Start: 03-08-2023 Office outpatient vi sit 25 minutes Devang Hall Work Phone: [facility] 250 DO Work Phone: Start: 03-08-2023 ambulatory Marisol Connors Facility : Start: 03-06-2023 Rx Renewal Devang collins Work Phone: [facility] 250 DO Work Phone: Start: 02-21-2023 End: 02-21-2023 ambulatory Allison Blades Other [facility] [employer] Other Start: 02-21-2023 Office outpatient vi sit 15 minutes Allison Blades [facility] Start: 01-10-2023 End: 03-02-[address] DOCTOR PLUMMER Facility:[facility] Start: 01-01-2023 End: 01-01-2023 ambulatory [facility] Other [facility] Other Start: 01-01-2023 Office outpatient ne w 45 minutes [facility] P[facility] Start: 11-29-2022 End: 11-29-2022 ambulatory Allison Blades Other [facility] [employer] Other Start: 11-29-2022 Office outpatient ne w 45 minutes Allison Blades [facility] Start: 11-29-2022 Telephone encounter Allison Kenyon [employer] Start: 11-28-2022 End: 11-28-2022 Patient encounter procedure ALANIS WOOD [facility] Start: 11-15-2022 End: 11-15-2022 ambulatory Devang Hall Other [employer] [employer] [facility] Other Start: 11-15-2022 Telephone encounter Devang Hall [facility] Start: 11-14-2022 End: 11-15-[address] DEVANG HALL Facility:[facility] Start: 10-11-2022 Rx Renewal Devang collins Work Phone: [facility] 250 DO Work Phone: Start: 09-26-2022 Office outpatient vi sit 25 minutes Devang Hall Work Phone: [facility] 250 DO Work Phone: Start: 09-26-2022 ambulatory Marisol Connors Facility : Start: 05-30-2022 End: 05-30-2022 Patient encounter procedure Goldy Alberto Jr. [facility] Start: 05-11-2022 End: 05-11-2022 Patient encounter procedure Goldy Alberto Jr. [facility] Start: 05-09-2022 End: 05-09-2022 Patient encounter procedure Goldy Alberto Jr. [facility] Start: 04-25-2022 End: 04-25-2022 Emergency department patient visit Dr. Devang Hall Facility:[facility] Start: 04-07-2022 End: 04-08-[address] MARISOL CONNORS Facility: Start: 03-28-2022 Office outpatient vi sit 25 minutes Devang Hall Work Phone: [facility] 250 DO Work Phone: Start: 03-28-2022 ambulatory Marisol Connors Facility : Start: 03-06-2022 Rx Renewal Marisol Connors MD Work Phone: [facility] 250 DO Work Phone: Start: 09-26-2021 Rx Renewal Marisol Connors MD Work Phone: [facility] 250 DO Work Phone: Start: 09-22-2021 Rx Renewal Marisol Connors MD Work Phone: [facility] 250 DO Work Phone: Start: 04-11-2018 End: 04-13-2018 Evaluation and management of inpatient DEVANG HALL [facility] Start: 04-10-2018 [facility] Start: 04-10-2018 End: 04-15-2018 Ambulatory [facility] Procedures Date Procedure Procedure Detail Performing Clinician Start: 11-12-2024 Radiologic examinati on knee 1/2 views Jr. Andrew Garay DO Work Phone: Start: 08-19-2024 Local anesthetic sac ral epidural block [employer] Comment on above: 60% relief Start: 06-24-2024 Epidural insertion o f temporary spinal cord stimulator electrode [employer] Comment on above: 60% relief Start: 01-09-2024 Injection of sacroil iac joint using fluoroscopic guidance [employer] Comment on above: 90% relief for 4 hrs Start: 10-08-2023 Radiofrequency ablat ion of nerve root of lumbar spine using fluoroscopic guidance [employer] Comment on above: Bilateral L3/4+L4/5- no relief Start: 09-04-2023 Injection of facet j oint using fluoroscopic guidance [employer] Comment on above: Bilateral L3/4, L4/5 MBB-80% relief for 1 day Start: 08-07-2023 Injection of facet j oint using fluoroscopic guidance [employer] Comment on above: BL L3/L4 L4/L5 MBB 8 5% Relief x 4 hours Start: 05-29-2023 Local anesthetic sac ral epidural block Bib Sanchez Comment on above: Caudal john 50% relie f Start: 05-01-2023 Injection of facet j oint using fluoroscopic guidance [employer] Comment on above: bilateral 75% relief for 2 hours Start: 03-12-2023 Injection of facet j oint using fluoroscopic guidance Stephenie Valencell Comment on above: pt changed amt of [...] Goldyjorje Alberto Jr. Start: 04-28-2020 Transurethral prostatectomy Goldyjorje Alberto Jr. 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 Start: 11-11-2025 End: 11-11-2025 Patient encounter procedure 11/11/2025 10:15 AM EST Office Visit [facility] [address] [place] [address] Jr. Andrew Garay DO [address] [place] [address] [facility] Start: 11-12-2024 End: 11-12-2024 [...] [address] [place] [address] Jenny Alvarenga, STORES CLERK [facility] Start: 08-05-2024 End: 08-05-2024 ambulatory 08/05/2024 10:00 AM EDT Treatment [facility] [address] [place] [address] Jenny Alvarenga STORES CLERK [facility] Start: 07-31-2024 End: 07-31-2024 ambulatory 07/31/2024 11:00 AM EDT Treatment [facility] [address] [place] [address] Tita Fulton STORES CLERK [facility] Start: 07-29-2024 End: 07-29-2024 ambulatory 07/29/2024 10:00 AM EDT Treatment [facility] [address] [place] [address] Jenny Alvarenga, STORES CLERK [facility] Start: 07-24-2024 End: 07-24-2024 ambulatory 07/24/2024 10:00 AM EDT Treatment [facility] [address] [place] [address] Jenny Alvarenga, STORES CLERK [facility] Start: 07-22-2024 End: 07-22-2024 [...] CI PT [address] [place] [address] Jenny Alvarenga, STORES CLERK [facility] Start: 07-08-2024 End: 07-08-2024 ambulatory [facility] Comment on above: Arrived Start: 07-06-2024 Influenza vaccination Influenza Vacc ine (#1) [facility] Start: 05-22-2024 End: 05-22-2024 Patient encounter procedure 05/22/2024 9:50 AM EDT Office Visit [facility] [address] [facility] [address] [place] [address] Marisol Connors MD [address] [facility] [address], [facility] [address] [place] [address] [facility] Start: 09-18-2023 FUV, Provider: Marisol Connors, Status: Pen, Time: 9:50 AM FUV, Provider: Marisol Connors, Status: Pen, Time: 9:50 AM [facility] 250 DO Work Phone: Start: 07-06-2023 COVID-19 Vaccine ( season) COVID-19 Vaccine ( season) [facility] Start: 03-08-2023 FUV, Provider: Marisol Connors, Status: Pen, Time: 9:50 AM FUV, Provider: Marisol Connors, Status: Pen, Time: 9:50 AM [facility] [place] 250 DO Work Phone: Start: 10-22-2022 COVID-19 Vaccine (4 - Pfizer series) COVID-19 Vaccine (4 - Pfizer series) [facility] Start: 09-26-2022 FUV, Provider: Marisol Connors, Status: Pen, Time: 9:40 AM FUV, Provider: Marisol Connors, Status: Pen, Time: 9:40 AM [facility] 250 DO Work Phone: Start: 03-28-2022 FUV, Provider: Marisol Connors, Status: Pen, Time: 1:20 PM FUV, Provider: Marisol Connors, Status: Pen, Time: 1:20 PM [facility] 250 DO Work Phone: Start: 12-15-2021 FUV, Provider: Marisol Connors, Status: Pen, Time: 10:30 AM FUV, Provider: Marisol Connors, Status: Pen, Time: 10:30 AM [facility] [employer] 250 DO Work Phone: Start: 2006 RSV patient s and/or patients aged 60+ years (1 - 1-dose 60+ series) RSV patients and/or patients aged 60+ years (1 - 1-dose 60+ series) [facility] Start: 1996 Zoster Vaccines (1 of 2) Zoste r Vaccines (1 of 2) [facility] Start: 1964 Hepatitis C screening [facility] Start: [facility] Lipid panel Lipid Panel [facility] Start: 1946 Medicare Annual Well ness Visit Medicare Annual Wellness Visit (AWV) [facility] Comprehensive metabo lic 2000 panel - Serum or Plasma [facility] Immunizations Immunization Date Immunization Notes Care Provider Tali hwang 10-24-2024 influenza virus vaccine, unspecified formulation Jr. Garay DO Work Phone: [facility] 08-20-2023 influenza virus vaccine, unspecified formulation Homero XAVIER [facility] 08-27-2022 Pfizer COVID-19 Vac Bivalent 30 MCG/0.3ML Intramuscular Suspension Devang Hall Work Phone: [facility] 08-14-2022 Fluzone High-Dose Quadrivalent 0.7 ML Intramuscular Suspension Prefilled Syringe Devang Hall Work Phone: [facility] 250 DO Work Phone: 08-14-2022 influenza virus vaccine, unspecified formulation ALANIS WOOD [facility] 08-14-2022 influenza, high dose seasonal, preservative-free Devang Hall Other [facility] [employer] Other 10-03-2021 Pfizer-BioNTech COVID-19 Vacc 30 MCG/0.3ML Intramuscular Suspension Devang Hall Work Phone: [facility] 10-03-2021 SARS-CoV-2 (COVID-19 ) Ad26 vaccine, recombinant Goldy Alberto Jr. [facility] 07-01-2021 Fluzone High-Dose Quadrivalent 0.7 ML Intramuscular Suspension Prefilled Syringe Devang Hall Work Phone: [facility] 07-01-2021 influenza virus vaccine, unspecified formulation ALANIS VERDUGORY [facility] 06-05-2021 influenza virus vaccine, unspecified formulation Goldy Alberto Jr. [facility] 01-25-2021 Pfizer-BioNTech COVID-19 Vacc 30 MCG/0.3ML Intramuscular Suspension Marisol Connors MD Work Phone: [facility] 01-25-2021 SARS-CoV-2 (COVID-19 ) Ad26 vaccine, recombinant Goldy Alberto [facility] 01-03-2021 COVID-19 Vaccine Pfi zer - Documentation Purposes Only Devang Hall Other [facility] 01-03-2021 SARS-CoV-2 (COVID-19 ) mRNA-1273 vaccine Goldy Alberto [facility] 12-28-2020 Pfizer-BioNTech COVID-19 Vacc 30 MCG/0.3ML Intramuscular Suspension Devang Hall Work Phone: [facility] 11-08-2020 diphtheria, tetanus toxoids and pertussis vaccine Devang Hall Work Phone: [place] [address] DO Work Phone: 07-06-2020 influenza virus vaccine, unspecified formulation Marisol Connors MD Work Phone: [facility] 07-02-2020 influenza virus vaccine, unspecified formulation ALANIS WOOD [facility] 08-19-2018 influenza virus vaccine, unspecified formulation ALANIS WOOD [facility] 08-19-2018 Seasonal trivalent influenza vaccine, adjuvanted, preservative free Devang Hall Work Phone: [facility] 250 DO Work Phone: 07-06-2018 influenza virus vaccine, unspecified formulation Marisol Connors MD Work Phone: [facility] 250 DO Work Phone: 08-24-2017 pneumococcal conjuga te vaccine, 13 valent Devang Hall Work Phone: [facility] 08-17-2017 influenza virus vaccine, unspecified formulation ALANIS WOOD [facility] 08-17-2017 influenza, high dose seasonal, preservative-free Devang E Ball Work Phone: [place] [address] DO Work Phone: 08-17-2017 influenza, injectabl e, quadrivalent, preservative free Patti Miranda [facility] 11-05-2016 pneumococcal polysaccharide vaccine, 23 valent Marisol Connors MD Work Phone: [place] [address] DO Work Phone: 08-11-2016 influenza virus vaccine, unspecified formulation ALANIS WOOD [facility] 08-05-2016 influenza virus vaccine, unspecified formulation ALANIS WOOD [facility] 08-05-2016 influenza, injectabl e, quadrivalent, preservative free Devang E Ball Work Phone: [facility] 07-06-2014 pneumococcal polysaccharide vaccine, 23 valent Devang E Rafael Work Phone: [facility] Payers Date Payer Category Payer Medicaid [employer] MEDICARE A DVANTAGE [id number] 2021 Medicare [id number]. [id number] 2017 Medicare [id number] 1958 Medicare [id number] 2.16.840.1.708957.19 1946 Unknown [id number] 2.16.840.1.015125.3.579.2.356 1946 Unknown [id number] 2.16.840.1.380776.3.579.2.356 1946 Unknown [id number] 2.16.840.1.132164.3.579.2.356 1946 Unknown [id number] 2.16.840.1.777508.3.579.2.356 1946 Unknown [id number] 2.16.840.1.463601.3.579.2.593 1946 Unknown [id number] 2.16.840.1.330571.3.579.2.593 1946 Unknown [id number] 2.16.840.1.203658.3.579.2.593 1946 Unknown [id number] 2.16.840.1.827977.3.579.2.593 1946 Unknown [id number] 2.16.840.1.693919.3.579.2.593 1946 Unknown [id number] 2.16.840.1.809348.3.579.2.1244 1946 Unknown [id number] 2.16.840.1.881038.3.579.2.1244 1946 Unknown [id number] 2.16.840.1.717478.3.579.2.727 1946 Unknown [id number] 2.16.840.1.375111.3.579.2.727 1946 Unknown [id number] 2.16.840.1.062563.3.579.2. 1946 Unknown [id number] 2.16.840.1.568287.3.579.2 1946 Unknown [id number] 2.16.840.1.582633.3.579.2 1946 Unknown [id number] 2.16.840.1.228186.3.579.2 1946 Unknown [id number] 2.16.840.1.722253.3.579.2 1946 Unknown [id number] 2.16.840.1.354068.3.579.2 1946 Unknown [id number] 2.16.840.1.320598.3.579.2 1946 Unknown [id number] 2.16.840.1.723756.3.579.2 1946 Unknown [id number] 2.16.840.1.411403.3.579.2 1946 Unknown [id number] 2.16.840.1.533277.3.579.2 1946 Unknown [id number] 2.16.840.1.873011.3.579.2 1946 Unknown [id number] 2.16.840.1.511929.3.579.2 1946 Unknown [id number] 2.16.840.1.528998.3.579.2 1946 Unknown [id number] 2.16.840.1.005782.3.579.2 1946 Unknown [id number] 2.16.840.1.151150.3.579.2 1946 Unknown [id number] 2.16.840.1.153190.3.579.27 1946 Unknown [id number] 2.16.840.1.837203.3.579.2. 1946 Unknown [id number] 2.16.840.1.149536.3.579.2. 1946 Unknown [id number] 2.16.840.1.699163.3.579.2. 1946 Unknown [id number] 2.16.840.1.305248.3.579.2. 1946 Unknown [id number] 2.16.840.1.241538.3.579.2. 1946 Unknown [id number] 2.16.840.1.761756.3.579.2.1258 1946 Unknown [id number] 2.16840.1.686213.3.579.2.1258 1946 Unknown [id number] 2.16840.1.339151.3.579.2.1258 1945 Unknown [id number] 2.16.840.1.139267.3.579.2.1258 1945 Unknown [id number] 2.16.840.1.002348.3.579.2.1258 1945 Unknown [id number] 2.16840.1.578656.3.579.2.1258 1945 Unknown [id number] 2.16.840.1.610203.3.579.2.1258 1945 Unknown [id number] 2.16.840.1.939169.3.579.2.1258 1945 Unknown [id number] 2.16.840.1.945555.3.579.2.1258 1945 Unknown [id number] 2.16.840.1.532337.3.579.2.1258 1945 Unknown [id number] 2.16.840.1.969773.3.579.2.1258 1945 Unknown [id number] 2.16.840.1.821453.3.579.2.1258 1945 Unknown [id number] 2.16.840.1.619342.3.579.2.1258 1945 Unknown [id number] 2.16.840.1.061124.3.579.2.1258 1945 Unknown [id number] 2.16.840.1.721481.3.579.2.1258 1945 Unknown [id number] 2.16.840.1.768691.3.579.2.1258 1945 Unknown [id number] 2.16.840.1.896126.3.579.2.1258 1945 Unknown [id number] 2.16.840.1.060828.3.579.2.1258 1945 Unknown [id number] 2.16.840.1.694353.3.579.2.1258 1945 Unknown [id number] 2.16.840.1.999531.3.579.2.1258 1945 Unknown [id number] 2.16.840.1.129963.3.579.2.1258 1945 Unknown [id number] 2.16.840.1.226619.3.579.2.1258 1946 Unknown [id number] 2.16.840.1.403386.3.579.2.1258 1946 Unknown [id number] 2.16.840.1.557349.3.579.2.1258 1945 Unknown [id number] 2.16.840.1.207058.3.579.2.1258 1945 Unknown [id number] 2.16.840.1.820301.3.579.2.1259 1945 Unknown [id number] 2.16.840.1.762605.3.579.2.1259 1945 Unknown [id number] 2.16.840.1.899929.3.579.2.1259 Self-pay Self Pay [id number] Unknown [employer] Social History Date Type Detail Facility Tobacco smoking stat us OHIS Unknown if ever smoked [facility] Start: 1945 Sex Assigned At Male [facility] Start: 11-14-2023 End: 11-12-2024 Social alcohol use Social alcohol use -[facility] DO Work Phone: Start: 11-15-2021 End: 07-14-2024 Tobacco smoking status Ex-smoker (finding) [facility] Comment on above: pt quit smoking in 1 984 Start: 11-14-2023 End: 11-12-2024 Sex Assigned At Male [facility] Tobacco smoking status Never [facility] Comment on above: pt quit smoking in 1 984 Start: 01-01-2023 End: 04-05-2023 Tobacco smoking status NHIS Never Smoker [facility] History of tobacco use Current smoker [facility] Work Phone: History of tobacco use Cigarette Smoker U [facility] Work Phone: Start: 11-14-2023 End: 07-14-2024 Tobacco use and exposure Smokeless tobacco non-user [facility] Work Phone: Start: 11-14-2023 Alcohol intake Ex-drinker (finding) [facility] Work Phone: Start: 1945 Sex Assigned At Not on file U [facility] Work Phone: Start: 11-04-2023 End: 05-22-2024 Exposure to SARS-CoV-2 (event) Not sure [facility] Start: 07-15-2024 End: 11-12-2024 Alcoholic beverage intake Current drinker of alcohol (finding) [facility] Work Phone: Start: 04-05-2023 Alcohol Comment caffeine 2-3 cups/da y [facility] Medical Equipment Procedure Code Equipment Code Equipment Origin al Text Equipment Identifier Dates FDA Start: 06-16-2019 CL CLOSURE DEVIC E EXOSEAL 6F FDA Start: 06-16-2019 CATARACT EXTRACT ION W/ INTRAOCULAR LENS Adolph Schultz DO 11/02/20 Non Biological Eye R [id number] FDA Start: 11-02-2020 CL CLOSURE DEVIC E [...] Assessment Result Facility 09-24-2024 Functional Status N/A [facility] 08-27-2024 Functional Status N/A [facility] 08-19-2024 Functional Status N/A [facility] 08-12-2024 Functional Status N/A [facility] 07-02-2024 Functional Status N/A [facility] 06-24-2024 Functional Status N/A [facility] 06-17-2024 Functional Status N/A [facility] 06-12-2024 Functional Status N/A [facility] 05-02-2024 Functional Status N/A [facility] 03-14-2024 Functional Status N/A [facility] 01-25-2024 Functional Status N/A [facility] 01-09-2024 Functional Status N/A [facility] 12-14-2023 Functional Status N/A [facility] 12-10-2023 Functional Status N/A [facility] 11-09-2023 Functional Status N/A [facility] 10-08-2023 Functional Status N/A [facility] 09-14-2023 Functional Status N/A [facility] 08-07-2023 Functional Status N/A [facility] 05-11-2023 Functional Status N/A [facility] 05-01-2023 Functional Status N/A [facility] 03-19-2023 Functional Status N/A [facility] 03-12-2023 Functional Status N/A [facility] 11-28-2022 Functional Status N/A [facility] 05-30-2022 Functional Status N/A [facility] 05-05-2022 Functional Status N/A [facility] Clinical Notes 12-29-2020 to 11-12-2024 Jr. Andrew [...] an appointment with Dr. Mcdonald at the [facility] for orthopedic spine consult. We'll see [...] requiring urgent evaluation. documented in this encounter [facility] 09-24-2024 Evaluation + Plan note Extrac yina [...] will provide further education and contact the [employer] representatives for additional support. He rates his [...] the remote, we will follow-up with the [employer] ham for further education -Will schedule right [...] with any questions or concerns that arise. [facility] 11-20-2024 NoteConsultation Note Patient is presenting with [...] will provide further education and contact the [employer] representatives for additionalsupport. He rates his back [...] the remote, we will follow-up with the [employer] alexCrescentrating for further education -Will schedule right genicular [...] call with any questions or concerns that arise.[facility] HospitalComment on above:Result Comment: Electronically Signed By: Bert Huang DO.amy\Date and Time Signed: 09/24/24 09:48 [id number] Evaluation + Plan noteExtracted from: Title:Pain Managment [...] will work with the spinal cord stimulator outside industrial sales representative and follow-up in a few weeks for reevaluation. He would like to restart physical therapy. Restrictions were discussed. Showering and wound care was discussed. Follow-up as above mention. ZACARIAS score: 48%. Future Appointments Appointment Date:09/24/2024 08:45:00 AM Scheduled Provider:Bert Huang DO Location:.[facility] Appointment Type:Pain Management - Follow Up (FT) [facility] 10-23-2024 NoteConsultation Note Patient: RIDGE ROLAND Age: [...] a reprogramming with the spinal cord stimulator outside industrial sales representative. He has some pain that he [...] q12hr, # 20 cap(s), Refills(s) 0, Pharmacy: [facility]/pharmacy #[id number], 193, cm, 08/19/24 7:28:00 EDT, Height/Length [...] list: All Problems Hypercholesterolemia / SNOMED CT 49090834 / Confirmed Hernia, inguinal, right / SNOMED CT 215337935 / Confirmed BPH with urinary obstruction / SNOMED CT 2557681990 / Confirmed Elevated PSA / SNOMED CT 1328887120 / Confirmed Impotence / SNOMED CT 5479788603 / Confirmed Urinary frequency / SNOMED CT 020312746 / Confirmed Nocturia / SNOMED CT 781869683 / Confirmed Weak urinary stream / SNOMED CT 810294864 / Confirmed Gross hematuria / SNOMED CT 467595099 / Confirmed Anticoagulated / SNOMED CT 676730423 / Confirmed Urge incontinence / SNOMED CT 899695853 / Confirmed Chronic prostatitis / SNOMED CT 38072306 / Confirmed Dysuria / SNOMED CT 07400057 / Confirmed Urinary retention / SNOMED CT 753488224 / Confirmed BMI 31.0-31.9,adult / SNOMED CT 517019054 / Confirmed Incomplete bladder emptying / SNOMED CT 413196459 / Confirmed Post-void dribbling / SNOMED CT 631993394 / Confirmed Incontinence without sensory awareness / SNOMED CT 0172358570 / Confirmed At risk for falls / SNOMED CT 244016165 / Possible ED (erectile dysfunction) / SNOMED CT 2334357543 / Confirmed Leaking of urine / SNOMED CT 7425427606 / Confirmed Urinary incontinence / SNOMED CT 9029504655 / Confirmed Prostate cancer screening / SNOMED CT 548867169 / Confirmed Resolved: Hypertension / SNOMED CT 7651494215 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 Incision is healing well. A new clean [...] done. He will (more content not included)... [facility] HospitalComment on above:Result Comment: Electronically Signed By: Stephenie [...] analysis of neurostimulator Anesthesia: MAC Complications: None Ncr Operator: assistant hvac mechanic provided Implanted devices: -Neuroreceiver/pulse generator: [employer] wavewriter alpha 16 -Neuroelectrodes: two avista 50cm [...] the epidural space with confirmation using glass qhdo-rb-dvqgxdojwl syringe and lead was threaded at T11/12 [...] wound was irrigated with sterile saline. The [employer] racebook writer alpha 16 pulse generator kit was [...] pocket. Then with the help of the assistant hvac mechanic both wounds were closed in a stepwise [...] 2024 10:38 EDT Correction to above: No marketing administrative assistant was utilized during this case. Closure was [...] list: All Problems Anticoagulated / SNOMED CT 075383225 / Confirmed At risk for falls / SNOMED CT 249601551 / Possible BMI 31.0-31.9,adult / SNOMED CT 870630441 / Confirmed BPH with urinary obstruction / SNOMED CT 8285897806 / Confirmed Chronic prostatitis / SNOMED CT 32102273 / Confirmed Dysuria / SNOMED CT 55445399 / Confirmed ED (erectile dysfunction) / SNOMED CT 4236088166 / Confirmed Elevated PSA / SNOMED CT 8687068990 / Confirmed Gross hematuria / SNOMED CT 752986934 / Confirmed Hernia, inguinal, right / SNOMED CT 618801702 / Confirmed Hypercholesterolemia / SNOMED CT 22910987 / Confirmed Impotence / SNOMED CT 4130597099 / Confirmed Incomplete bladder emptying / SNOMED CT 215074436 / Confirmed Incontinence without sensory awareness / SNOMED CT 6863584578 / Confirmed Leaking of urine / SNOMED CT 7943408240 / Confirmed Nocturia / SNOMED CT 303699107 / Confirmed Post-void dribbling / SNOMED CT 288567357 / Confirmed Prostate cancer screening / SNOMED CT 452414493 / Confirmed Urge incontinence / SNOMED CT 677499402 / Confirmed Urinary frequency / SNOMED CT 565417676 / Confirmed Urinary incontinence / SNOMED CT 7388092243 / Confirmed Urinary retention / SNOMED CT 841581495 / Confirmed Weak urinary stream / SNOMED CT 161761479 / Confirmed Resolved: Hypertension / SNOMED CT 9821804977 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 Procedure history: Spinal Cord Stimulator Trial ([id number]) on 06/24/2024 at 78 Years. Comments: 07/02/2024 8:58 Marifer Alegre 60% relief Injection of sacroiliac joint using fluoroscopic guidance (6570771445) on 01/09/2024 at 78 Years. Comments: 01/25/2024 13:34 Azra Fitzgerald RN 90% relief for 4 hrs Radiofrequency ablation of nerve root of lumbar spine using fluoroscopic guidance ([id number]) on 10/08/2023 at 78 Years. Comments: 11/09/2023 11:23 Savannah Paredes RN A Bilateral L3/4+L4/5- no relief Biliateral L3/4, L4/5 MBB ([id number]) on 09/04/2023 at 77 Years. Comments: 09/14/2023 7:53 JU Kelly RN Tomasa J Bilateral L3/4, L4/5 MBB-80% relief for 1 day Bilateral L3/L4 L4/L5 MBB ([id number]) on 08/07/2023 at 77 Years. Comments: 08/28/2023 7:57 Sharee Jama RN BL L3/L4 L4/L5 MBB 85% Relief x 4 hours Caudal epidural ([id number]) on 05/29/2023 at 77 Years. Comments: 06/18/2023 10:04 Sharee Jama RN Caudal john 50% relief L3/4 Medial Branch Blocks ([id number]) on 05/01/2023 at 77 Years. Comments: 05/11/2023 9:48 Savannah Mari RN bilateral 75% relief for 2 hours Injection of facet joint using fluoroscopic guidance ([id number]) on 03/12/2023 at 77 Years. Comments: 03/19/2023 9:18 Myranda Butler RN pt changed amt of relief to 80% x 4 hr. 03/19/2023 8:54 Myranda Butler RN L3/4 MBB- 50% relief x 4 hr Cysto/Botox 100 units ([id number]) on 05/11/2022 at 76 Years. Blepharoplasty ([id number]) on 02/07/2021 at 75 Years. Cystourethroscopy with dilation of urethral stricture (241474859) on 12/02/2020 at 75 Years. Right eye cataract extraction and insertion of intraocular lens (6864926350) on 11/02/2020 at 75 Years. TURP - Transurethral resection of prostate ([id number]) on 04/28/2020 at 74 Years. Cystourethroscopy with dilation of urethral stricture ([id number]) on 12/08/2019 at 74 Years. back surgery on 10/16/2019 at 74 Years. Comments: 12/02/2019 9:22 EST - Marine Dempsey 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3 Placement of stent in cardiac conduit ([id number]) on 06/16/2019 at 73 Years. inguinal hernia repair in 2018 at 72 Years. TURP - Transurethral resection of prostate ([id number]) on 07/12/2016 at 70 Years. Cystoscopy ([id number]) on 06/23/2016 at 70 Years. Evolve laser of prostate ([id number]) on 03/14/2013 at 67 Years. Urodynamics ([id number]) on 02/13/2013 at 67 Years. Back (577106840). Arthroscopy of knee joint (156088169). CE - Cataract extraction (4486247234). Release of trigger finger (689420333). Social History Social & Psychosocial Habits Alcohol [...] adequate air exchange. Cardiovascular: Regular rhythm. Plan [place] [employer] Anesthesiologists (ASA) physical status classification: Class III. Anesthetic Preoperative Plan: Anesthesia General. Addendum by Oseas Alcala CRNA on August 19, 2024 7:42 EDT Change title of note to progress note Future Appointments Appointment Date:08/27/2024 11:15:00 AM Scheduled Provider:Stephenie Barrios PA-C Location:.[facility] Appointment Type:Pain Management - Follow Up (FT) [facility] 10-15-2024 NoteProgress Note-Physician Patient: RIDGE ROLAND Age: 78 years Sex: Male : 1945 Associated Diagnoses: None Author: Liliana Alcala CRNA Postoperative Information Postoperative disposition: Postoperative disposition: Home. Optimetrix number: Optimetrix number [id number]. Anesthetic utilized: General. Health Status Allergies: Allergic [...] Blood Pressure 62 mm (more content not included)...[facility] HospitalComment on above:Result Comment: Electronically Signed By: Liliana Alcala CRNA\.br\Date and Time Signed: 08/19/24 10:25 [id number] Note Progress Note-Physician Patient: RIDGE ROLAND Age: [...] list: All Problems Anticoagulated / SNOMED CT 399961732 / Confirmed At risk for falls / SNOMED CT 290842361 / Possible BMI 31.0-31.9,adult / SNOMED CT 910817121 / Confirmed BPH with urinary obstruction / SNOMED CT 6269483722 / Confirmed Chronic prostatitis / SNOMED CT 66371723 / Confirmed Dysuria / SNOMED CT 61172367 / Confirmed ED (erectile dysfunction) / SNOMED CT 4077114705 / Confirmed Elevated PSA / SNOMED CT 9108443890 / Confirmed Gross hematuria / SNOMED CT 499214375 / Confirmed Hernia, inguinal, right / SNOMED CT 828577947 / Confirmed Hypercholesterolemia / SNOMED CT 03056447 / Confirmed Impotence / SNOMED CT 5164021763 / Confirmed Incomplete bladder emptying / SNOMED CT 965205187 / Confirmed Incontinence without sensory awareness / SNOMED CT 4973905945 / Confirmed Leaking of urine / SNOMED CT 2257800406 / Confirmed Nocturia / SNOMED CT 324728047 / Confirmed Post-void dribbling / SNOMED CT 450646150 / Confirmed Prostate cancer screening / SNOMED CT 825232285 / Confirmed Urge incontinence / SNOMED CT 132591092 / Confirmed Urinary frequency / SNOMED CT 262461858 / Confirmed Urinary incontinence / SNOMED CT 6441760543 / Confirmed Urinary retention / SNOMED CT 804380270 / Confirmed Weak urinary stream / SNOMED CT 224734309 / Confirmed Resolved: Hypertension / SNOMED CT 7688578267 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 Pt. Reports of [...] to be instructed in home exercise program. [employer] Counsel[employer] Goals: To be met in 10 weeks [...] Please sign below. Date: documented in [facility] encounter[facility] HospitalSbgxkpchcf15-30-0388 History of Present illness Narrative* Ramírez Paez, [...] management for his back- Dr. Huang at [facility]. Review of Systems Constitutional: Negative for appetite [...] reflexes are 0 and symmetric throughout. Coordination: Rwwtsv-sm-xgkx testing and rapid alternating movements are normal Gait: Patient ambulates with a walker Review and summary of old records: MRI of the cervical spine without contrast on 05/27/2024: Multilevel moderate to marked foraminal narrowing with few levels of moderate canal narrowing and kndb-yp-fcdufeel disc bulging with facet arthropathy. CT of [...] He has previously had EMG analysis in [place]. He is currently undergoing physical therapy and [...] plan, and return instructions documented in this encounterSaint Alexius [id number] Telephone encounter Note* Telephone Encounter - Ulices Esquivel NP - 07/08/2024 10:44 AM EDT Allergies reviewed. Rx sent to pharmacy. [facility] [id number] Miscellaneous Notes* Telephone Encounter - Ulices Esquivel NP - 07/08/2024 10:44 AM EDT Allergies reviewed. Rx sent to pharmacy. * Telephone Encounter - Tomasa Posadas - 07/08/2024 10:22 AM EDT Patient's called stating Ridge is having teeth cleaned 07/15/24 and needs RX sent to [facility] [place] is [place]. Please advise. documented in this encounterSaint Alexius HospitalFtvwoazjkq76-53-7294 Telephone encounter Note* Telephone Encounter - Tomasa Cuauhtemoc - 07/08/2024 10:22 AM EDT Patient's called stating Ridge is having teeth cleaned 07/15/24 and needs RX sent to [facility] pharmacy is [place]. Please advise. [facility] [id number] Evaluation + Plan noteExtracted from: Title:Pain Managment [...] from our services. ZACARIAS score: 42 %. [facility] [id number] NoteConsultation Note Patient: RIDGE ROLAND Age: 78 [...] list: All Problems Hypercholesterolemia / SNOMED CT 54529610 / Confirmed Hernia, inguinal, right / SNOMED CT 472020805 / Confirmed BPH with urinary obstruction / SNOMED CT 1268353196 / Confirmed Elevated PSA / SNOMED CT 0722822004 / Confirmed Impotence / SNOMED CT 4156552483 / Confirmed Urinary frequency / SNOMED CT 453167761 / Confirmed Nocturia / SNOMED CT 926063340 / Confirmed Weak urinary stream / SNOMED CT 497915808 / Confirmed Gross hematuria / SNOMED CT 710684274 / Confirmed Anticoagulated / SNOMED CT 459027083 / Confirmed Urge incontinence / SNOMED CT 433214227 / Confirmed Chronic prostatitis / SNOMED CT 98522232 / Confirmed Dysuria / SNOMED CT 30423983 / Confirmed Urinary retention / SNOMED CT 770392928 / Confirmed BMI 31.0-31.9,adult / SNOMED CT 585170008 / Confirmed Incomplete bladder emptying / SNOMED CT 129941032 / Confirmed Post-void dribbling / SNOMED CT 035125087 / Confirmed Incontinence without sensory awareness / SNOMED CT 5738065008 / Confirmed At risk for falls / SNOMED CT 268211251 / Possible ED (erectile dysfunction) / SNOMED CT 2899288287 / Confirmed Leaking of urine / SNOMED CT 7989114078 / Confirmed Urinary incontinence / SNOMED CT 8681003503 / Confirmed Prostate cancer screening / SNOMED CT 954225048 / Confirmed Resolved: Hypertension / SNOMED CT 3880182076 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 Neurologic: Alert, Oriented. Psychiatric: Cooperative, Appropriate mood [...] medications. He had a (more content not included)...[facility] HospitalComment on above:Result Comment: Electronically Signed By: Sophie SHIPMAN, Stephenie\.br\Date and Time Signed: 07/02/24 09:36 [id number] NoteProgress Note-Physician Patient: RIDGE ROLAND Age: 78 [...] Problems Leaking of urine / SNOMED CT 0519221617 / Confirmed Urinary incontinence / SNOMED CT 3099228342 / Confirmed Urge incontinence / SNOMED CT 133927115 / Confirmed Hernia, inguinal, right / SNOMED CT 981064913 / Confirmed Urinary retention / SNOMED CT 026688813 / Confirmed Elevated PSA / SNOMED CT 9743517691 / Confirmed Post-void dribbling / SNOMED CT 541213743 / Confirmed Weak urinary stream / SNOMED CT 726218882 / Confirmed Prostate cancer screening / SNOMED CT 317441509 / Confirmed Nocturia / SNOMED CT 303467852 / Confirmed Urinary frequency / SNOMED CT 042377688 / Confirmed Incontinence without sensory awareness / SNOMED CT 8071539299 / Confirmed Impotence / SNOMED CT 6031295909 / Confirmed Hypercholesterolemia / SNOMED CT 98204647 / Confirmed Gross hematuria / SNOMED CT 139426218 / Confirmed Incomplete bladder emptying / SNOMED CT 140041179 / Confirmed ED (erectile dysfunction) / SNOMED CT 5392916433 / Confirmed Dysuria / SNOMED CT 40995242 / Confirmed Anticoagulated / SNOMED CT 997233359 / Confirmed Chronic prostatitis / SNOMED CT 31057778 / Confirmed BMI 31.0-31.9,adult / SNOMED CT 976114255 / Confirmed BPH with urinary obstruction / SNOMED CT 0937496018 / Confirmed At risk for falls / SNOMED CT 420398886 / Possible Resolved: 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 Comments: 01/25/2024 13:34 Azra Fitzgerald RN 90% relief for 4 hrs Radiofrequency ablation of nerve root of lumbar spine using fluoroscopic guidance ([id number]) on 10/08/2023 at 78 Years. Comments: 11/09/2023 11:23 Savannah Paredes RN Bilateral L3/4+L4/5- no relief Biliateral L3/4, L4/5 MBB ([id number]) on 09/04/2023 at 77 Years. Comments: 09/14/2023 7:53 Tomasa Abdullahi RN Bilateral L3/4, L4/5 MBB-80% relief for 1 day Bilateral L3/L4 L4/L5 MBB ([id number]) on 08/07/2023 at 77 Years. Comments: 08/28/2023 7:57 Sharee Jama RN L3/L4 L4/L5 MBB 85% Relief x 4 hours Caudal epidural ([id number]) on 05/29/2023 at 77 Years. Comments: 06/18/2023 10:04 EDT - Sharee Dominguez RN Caudal john 50% relief L3/4 Medial Branch Blocks ([id number]) on 05/01/2023 at 77 Years. Comments: 05/11/2023 9:48 EDSavannah Patel RN bilateral 75% relief for 2 hours Injection of facet joint using fluoroscopic guidance (5730176302) on 03/12/2023 at 77 Years. Comments: 03/19/2023 9:18 AMEENA Sierra RN, Myranda pt changed amt of relief to 80% x 4 hr. 03/19/2023 8:54 Myranda Butler RN L3/4 MBB- 50% relief x 4 hr Cysto/Botox 100 units ([id number]) on 05/11/2022 at 76 Years. Blepharoplasty ([id number]) on 02/07/2021 at 75 Years. Cystourethroscopy with dilation of urethral stricture (660762381) on 12/02/2020 at 75 Years. Right eye cataract extraction and insertion of intraocular lens ([id number]) on 11/02/2020 at 75 Years. TURP - Transurethral resection of prostate ([id number]) on 04/28/2020 at 74 Years. Cystourethroscopy with dilation of urethral stricture ([id number]) on 12/08/2019 at 74 Years. back surgery on 10/16/2019 at 74 Years. Comments: 12/02/2019 9:22 Marine Roman 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3 Placement of stent in cardiac conduit (4973368665) on 06/16/2019 at 73 Years. inguinal hernia repair in 2018 at 72 Years. TURP - Transurethral resection of prostate ([id number]) on 07/12/2016 at 70 Years. Cystoscopy ([id number]) on 06/23/2016 at 70 Years. Evolve laser of prostate ([id number]) on 03/14/2013 at 67 Years. Urodynamics ([id number]) on 02/13/2013 at 67 Years. Back ([id number]). Arthroscopy of knee joint ([id number]). CE - Cataract extraction ([id number]). R (more content not included)...[facility]: Result Comment: Electronically Signed By: Gokul Escalera Jr, DO\Ilirbr\Date and Time Signed: 06/26/24 07:45 [id number] NoteProgress Note-Physician Patient: RIDGE ROLAND Age: 78 [...] Discharge when meets criteria ( To home ).[facility]Comment on above:Result Comment: Electronically Signed By: Gokul Escalera Jr, DO\Ilirbr\Date and Time Signed: 06/26/24 07:45 EDT 06-24-2024 Evaluation + Plan noteExtracted from: Title:Spinal cord stimulator trial Author:Bert Huang DO Date:06/24/24 Diagnosis: Lumbar postlamine ctomy pain syndrome, M96.1. Chronic pain syndrome G89.29. Procedure: Spinal cord stimulator trial under fluoroscopic guidance with two 16 contact In[employer] leads from [employer] and 2 click anchors, 88288. Analyze neurostimulator complex, 86814. Anesthesia: MAC Complications: None Description: After informed [...] the epidural space with confirmation using glass lpdm-qm-iizxuifagf syringe and lead was threaded at T12/L1. [...] 08:45:00 AM Scheduled Provider:Stephenie Barrios PA-C Location:.[facility] Appointment Type:Pain Management - Follow Up (FT) [facility] 08-08-2024 Hospital Discharge instructions Patient Education 06/12/2024 [...] nerve stimulation). ?For women, using a medical officer to prevent urine leaks. This is a [...] right after experiencing incontinence. General instructions Take eyld-vid-ohzxmvc and prescription medicines only as told by [...] important. Where to find more information [place] of Diabetes and Digestive and Kidney Diseases: www.niddk.nih.gov [place] [employer]: www.urologyhealth.org Contact a health care [...] provider. Document Revised: 05/27/2021 Document Reviewed: 05/27/2021 [employer] Patient Education 2022 [employer] Follow Up Care 05/23/2024 09:29:30 With:ALANIS WOOD PA-C, URL Address: [address] [place] [address] When: Unknown Comments:PRN [facility] 08-08-2024 NotePatient Education Urology Urinary [...] stimulation). ? For women, using a medical officer to prevent urine leaks. This is a [...] that can protect the (more content not included)...[facility] History of Present illness Narrative* Marisol Connors [...] Attestation By signing my name below, I, Lora B, SPORTS MARKETING SPECIALIST , Scribe attest that this documentation has [...] exam, discussion and plan. documented in this encounterOhio[facility] Work Phone: 1(568) 129-112807-18-2024 Instructions* Patient Instructions* Lroa Torres LPN - 05/22/2024 9:50 AM EDT [...] proceed with back stimulator documented in this encounterOhio[facility] Work Phone: [phone] Evaluation + Plan noteExtracted from: Title:Pain Managment [...] authorization has been obtained ZACARIAS score: 56%. [facility]06-28-2024 NoteConsultation Note Patient: RIDGE ROLAND Age: 78 [...] hrs., # 15 tab(s), Refills(s) 3, [id number], 193, cm, 08/31/22 9:11:00 EDT, Height/Length Dosing, 114.5, kg, 08/31/22 9:11:00 EDT, Weight Dosing... amitriptyline 10 mg Tab: 10 mg = 1 tab(s), Oral, Once a day (at bedtime), X 30 day(s), # 30 tab(s),Refills(s) 1, [id number], 193, cm, 03/14/24 9:55:00 EDT, Height/Length Dosing, 104.5, kg, 03/14/24 9:55:00 EDT, Weight Dosing amitriptyline 25 mg Tab: 25 mg = 1 tab(s), Oral, Once a day (at bedtime), X 30 day(s), # 30 tab(s),Refills(s) 1, [id number], 193, cm, 05/02/24 10:29:00 EDT, Height/Length Dosing, 104.5, kg, 03/14/24 9:55:00 EDT, Weight Dosing pregabalin 25 mg Cap: 25 mg = 1 cap(s), Oral, BID, # 60 cap(s), Refills(s) 2, [id number], 193, cm, 11/09/23 11:29:00 EST, Height/Length [...] list: All Problems Hypercholesterolemia / SNOMED CT 54731763 / Confirmed Hernia, inguinal, right / SNOMED CT 688081441 / Confirmed BPH with urinary obstruction / SNOMED CT 3405504913 / Confirmed Elevated PSA / SNOMED CT 0811514509 / Confirmed Impotence / SNOMED CT 6362760498 / Confirmed Urinary frequency / SNOMED CT 453180583 / Confirmed Nocturia / SNOMED CT 824673535 / Confirmed Weak urinary stream / SNOMED CT 097759631 / Confirmed Gross hematuria / SNOMED CT 770116002 / Confirmed Anticoagulated / SNOMED CT 101361002 / Confirmed Urge incontinence / SNOMED CT 187111796 / Confirmed Chronic prostatitis / SNOMED CT 32639739 / Confirmed Dysuria / SNOMED CT 56221610 / Confirmed Urinary retention / SNOMED CT 471068532 / Confirmed BMI 31.0-31.9,adult / SNOMED CT 290600912 / Confirmed Incomplete bladder emptying / SNOMED CT 016622979 / Confirmed Post-void dribbling / SNOMED CT 282826823 / Confirmed Incontinence without sensory awareness / SNOMED CT 6825566733 / Confirmed At risk for falls / SNOMED CT 517184195 / Possible ED (erectile dysfunction) / SNOMED CT 9841628955 / Confirmed Leaking of urine / SNOMED CT 4210783084 / Confirmed Urinary incontinence / SNOMED CT 0385130712 / Confirmed Prostate cancer screening / SNOMED CT 037826769 / Confirmed Resolved: Hypertension / SNOMED CT 6559267800 Resolved: 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 Eye: Normal conjunctiva. HENT (more content not included)...[facility] HospitalComment on above: Result Comment: Electronically Signed By: Stephenie Barrios PA-C\.br\Date and Time Signed: 05/02/24 10:53 [id number] Evaluation + Plan noteExtracted from: Title:Pain Managment [...] Date:05/02/2024 10:30:00 AM Scheduled Provider:Stephenie Barrios PA-C Location:[facility] Appointment Type:Pain Management - Follow Up (FT) [facility]03-22-2024 Evaluation + Plan noteExtracted from: Title:Pain [...] Date:03/14/2024 09:45:00 AM Scheduled Provider:Stephenie Barrios PA-C Location:.[facility] Appointment Type:Pain Management - Follow Up (FT) [facility]03-06-2024 Evaluation + Plan noteExtracted from: Title:Bilateral [...] Date:01/25/2024 01:30:00 PM Scheduled Provider:Stephenie Barrios PA-C Location:.[facility] Appointment Type:Pain Management - Follow Up (FT) [facility]03-06-2024 Note [id number] 01-09-2024 NoteDiagnosis: M46.1, bilateral sacroiliitis [...] procedure, and agrees to continue currently prescribed/recommended therapies.[facility] Comment on above:Result Comment: Electronically Signed By: Bert Huang DO\.br\Date and Time Signed: 01/09/24 11:32 [id number] Hospital Discharge instructions Patient Education 12/14/2023 10:59:33 [...] nerve stimulation). ?For women, using a medical officer to prevent urine leaks. This is a [...] right after experiencing incontinence. General instructions Take tkdc-rnl-kbrnuyn and prescription medicines only as told by [...] important. Where to find more information [place] of Diabetes and Digestive and Kidney Diseases: www.niddk.nih.gov [place] [employer]: www.urologyhealth.org Contact a health care [...] provider. Document Revised: 05/27/2021 Document Reviewed: 05/27/2021 [employer] Patient Education 2022 [employer]. Follow Up Care 12/07/2023 15:16:05 With:DUC WALTERS, Homero Marie, URL Address: [facility] [address] , [place] [phone] When: only if needed [facility] 02-05-2024 Evaluation + Plan noteExtracted [...] Date:12/14/2023 09:30:00 AM Scheduled Provider:Homero XAVIER MD Location:[facility] Appointment Type:URO Office Visit [facility]01-10-2024 History of Present illness Narrative* Marisol [...] At risk for falls documented in this encounterOhio[facility] Work Phone: 1([phone]) 346-431801-10-2024 Instructions* Patient Instructions* Steven Wheeler MA - [...] Fall Prevention Education Given documented in this encounterOhioHealth [facility] Work Phone: [phone] Evaluation + Plan noteExtracted from: Title:Pain Managment [...] Date:12/10/2023 11:15:00 AM Scheduled Provider:Bib Sanchez MD Location:[facility] Appointment Type:Pain Management - Follow Up (FT) Appointment Date:12/11/2023 01:00:00 PM Scheduled Provider:ALANIS WOOD PA-C Location:[facility] Appointment Type:URO Office Visit [facility]12-19-2023 Evaluation note* Encounter Date Diagnosis Assessment [...] Oct, Fatigue, unspecified type (ICD-10 - R53.83) [facility] Other 12-04-2023 Note [id number]#1.00[facility] 09-14-2023 Evaluation + Plan noteExtracted from: [...] follow-up as above mentioned ZACARIAS score: 28% [facility]10-31-2023 Note [id number]#1.00[facility] 08-07-2023 [id number]#1.00CD:127[facility] Evaluation + Plan noteExtracted from: Title:Pain Managment [...] clinic sooner if necessary. ZACARIAS score: 42% [facility]06-29-2023 Evaluation note* Encounter Date Diagnosis Assessment Notes Treatment Notes Treatment Clinical Notes Apr, Thyroid cyst (ICD-10 - E04.1) FNA non-diagnostic - 2014, US: stable nodules, no further scans necessary - 04/2023 [facility] Other 05-15-2023 Evaluation + Plan noteExtracted from: [...] clinic sooner if necessary. ZACARIAS score: 48% [facility]04-19-2023 Evaluation note* Encounter Date Diagnosis Assessment Notes Treatment Notes Treatment Clinical Notes Feb, Low back pain, unspecified (ICD-10 - M54.50) [facility] Other 02-27-2023 Evaluation note* Encounter Date Diagnosis [...] R26.89) Dec, Physical deconditioning (ICD-10 - R53.81) [facility]. Other 01-25-2023 Evaluation note* Encounter Date Diagnosis Assessment Notes Treatment Notes Treatment Clinical Notes Nov, Low back pain, unspecified (ICD-10 - M54.50) Nov, Other chronic pain (ICD-10 - G89.29) [facility] Other 01-24-2023 Hospital Discharge instructions Patient Education [...] urethra. Follow these instructions at home: Take owgc-eaz-iahgvsh and prescription medicines only as told by [...] 10/22/2006 Document Revised: 09/16/2019 Document Reviewed: 11/26/2017 [employer] Patient Education 2019 [employer]. Follow Up Care 08/31/2022 09:40:03 With:NINA SHIPMAN, ALANIS Bustillo, URL Address: [address] [place] [address] When: Unknown [facility] 07-26-2022 Hospital Discharge instructions Patient [...] urethra. Follow these instructions at home: Take zxyu-mfn-ofrfkag and prescription medicines only as told by [...] 10/22/2006 Document Revised: 09/16/2019 Document Reviewed: 11/26/2017 [employer] Patient Education 2020 [employer] Follow Up Care 05/11/2022 10:39:09 With:Remy Cruz MD, Goldy Collins, URO Address: [facility] [address] [place] [phone] When:Within 2 Month(s) Comments:PVR [facility] 07-07-2022 Hospital Discharge instructions Patient [...] Address: [facility] [address] [place] [address]- Business (1) When:4 weeks Comments:PVR with next office visit [facility]06-15-2021 NoteHNO ID: [id number] Author: Alanis Nguyen MD Service: ? 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 He established with [...] hence has not been back to the [facility]. He is not compliant with PT exercises. He continues to have numbness in the feet with intermittent tingling, no sharp/burning pain. ?On 11/08/20, he tripped over the laundry basket and had a cut on the right forehead. No loss of consciousness, he was [facility] to [facility] CT c- spine showed degenerative [...] as he can do more at the [facility]. They are planning to go back to the [facility]. Current Outpatient Medications Medication Sig [...] pain, no s (more content not included)... [facility]02-24-2021 NotePatient Outreach (COVAMN) RIDGE ROLAND ([id number]) 1945 M Date Time Provider Department 12/29/20 YARITZA WILLSON During your visit today, we recorded the following information about you: Allergies As of Date: 12/29/2020 (No Known Allergies) Date Reviewed: 11/16/2020 Reviewed by: Mauri Du) SHIRA Horn - Fully Assessed Order(s):SARS-COVID VACCINE 1ST DOSE APPT [[id number]] Order #: [id number] FUTURE Prescriptions as of 12/29/2020 Sig: CYANOCOBALAMIN [...] (None) Encounter Status:Closed by OSCAR SULLIVAN on 01/03/21[facility] Evaluation + Plan note Future Appointments Appointment Date:05/11/2022 10:00:00 AM Scheduled Provider: Location:[facility] Appointment Type:Urology FT [facility] evaluation + Plan note Future Appointments Appointment Date:05/30/2022 09:30:00 AM Scheduled Provider:Goldy Alberto Jr., MD Location:[facility] Appointment [facility] Future Appointments Appointment Date:08/08/2022 08:45:00 AM Scheduled Provider:Goldy Alberto Jr., MD Location:[facility] Appointment Type:URO Office Visit [facility] evaluation + Plan note Future Appointments Appointment Date:01/10/2023 11:00:00 AM Scheduled Provider:ALANIS WOOD PA-C Location:[facility] Appointment Type:URO Office Visit [facility] evaluation + Plan note Future Appointments Appointment Date:03/19/2023 08:30:00 AM Scheduled Provider:Stephenie Barrios PA-C Location:[facility] Appointment Type:Pain Management - [facility] Future Appointments Appointment Date:05/11/2023 10:00:00 AM Scheduled Provider:Stephenie Barrios PA-C Location:[facility] Appointment Type:Pain Management - [facility] Future Appointments Appointment Date:08/28/2023 07:45:00 AM Scheduled Provider:Bib Sanchez MD Location:[facility] Appointment Type:Pain Management - [facility] Future Appointments Appointment Date:11/09/2023 11:15:00 AM Scheduled Provider:Stephenie Barrios PA-C Location:[facility] Appointment Type:Pain Management - [facility] ([facility] Future Appointments Appointment Date:06/17/2024 11:30:00 AM Scheduled Provider:Bert Huang DO Location:[facility] Appointment Type:Pain Management - Nurse Consult (FT) Appointment Date:06/24/2024 08:00:00 AM Scheduled Provider: Location:[facility] Appointment Type:Surgery FT Appointment Date:07/02/2024 08:45:00 AM Scheduled Provider:Stephenie Barrios PA-C Location:[facility] Appointment Type:Pain Management - Follow Up (FT) [facility] evaluation + Plan note Future Appointments Appointment Date:06/24/2024 08:00:00 AM Scheduled Provider: Location:[facility] Appointment Type:Surgery FT Appointment Date:07/02/2024 08:45:00 AM Scheduled Provider:Stephenie Barrios PA-C Location:[facility] Appointment Type:Pain Management - Follow Up (FT) [facility] Evviolaation + Plan note Future Appointments Appointment Date:06/24/2024 08:00:00 AM Scheduled Provider: Location:[facility] Appointment Type:Surgery FT Appointment Date:07/02/2024 08:45:00 AM Scheduled Provider:Stephenie Barrios PA-C Location:[facility] Appointment Type:Pain Management - Follow Up (FT) Diagnostic Tests Pending * MRSA Screen 06/17/24 [facility] Evaluation + Plan note Future Appointments Appointment Date:08/19/2024 08:00:00 AM Scheduled Provider: [facility] App[facility] Type:Surgery FT Appointment Date:08/27/2024 11:15:00 AM Scheduled Provider:Stephenie Barrios PA-C Location:FT.[facility] Appointment Type:Pain Management - Follow Up (FT) Diagnostic Tests Pending * MRSA Screen 08/12/24 [facility] evaluation + Plan note Future Appointments Appointment Date:08/19/2024 08:00:00 AM Scheduled Provider: Location:[facility] Appointment Type:Surgery FT Appointment Date:08/27/2024 11:15:00 AM Scheduled Provider:Stephenie Barrios PA-C Location:FT.[facility] Appointment Type:Pain Management - Follow Up (FT) [facility] evaluation noteNo InformationNoPoly[employer] Media Other evaluation noteNoPolyview Media Other Evaluation note* Diagnosis Arteriosclerosis of coronary artery- Primary Status post coronary angioplasty Postsurgical percutaneous transluminal coronary angioplasty status Dyslipidemia Other and unspecified hyperlipidemia Essential hypertension Unspecified essential hypertension Obesity (BMI 30.0-34.9) At risk for falls Personal history of fall documented in this encounter [facility] Work Phone: Evaluation note* Diagnosis Onset Date Resolution Status Abnormal intentional weight loss acute ASHD (arteriosclerotic heart disease) acute Hypercholesterolemia acute Impaired fasting glucose acu te Memory deficit acute Primary hypertension acute [facility] Work Phone: Evaluation note* Diagnosis Onset Date Resolution Status Impaired fasting glucose acu te Lumbar spondylosis acute Memory deficit acute Primary hypertension acute Abnormal intentional weight loss acute ASHD (arteriosclerotic heart disease) acute Impaired fasting glucose acu te Primary hypertension acute [facility] Work Phone: Evaluation note* Diagnosis Onset Date Resolution Status ASHD (arteriosclerotic heart disease) acute Hypercholesterolemia acute Impaired fasting glucose acu te Lumbar spondylosis acute Polyneuropathy acute Primary hypertension acute Medicare annual wellness visit, subsequent noneactive Screening PSA (prostate specific antigen) noneactive [facility] Work Phone: Evaluation note* Diagnosis Onset [...] spondylosis acute Polyneuropathy acute Primary hypertension acute [facility] Work Phone: Evaluation note* Diagnosis Acute [...] idiopathic peripheral neuropathy documented in this encounter [facility] Work Phone: Evaluation note* Diagnosis Acute pain [...] hip impingement syndrome documented in this encounter [facility] HealthcareEvaluation note* Diagnosis Acute pain of left knee- Primary History of fall Personal history of fall Poor balance Leg weakness, bilateral Muscle weakness (generalized) Difficulty walking Difficulty in walking Foot drop, right foot History of falling Left hip impingement syndrome Right hip impingement syndrome documented in this encounter [facility] HealthcareEvaluation note* Diagnosis History of total right knee replacement- Primary documented in this encounter [facility] HealthcareEvaluation note* Diagnosis Multilevel degenerative disc disease- Primary Hypophonia documented in this encounter [facility] HealthcareEvaluation note* Diagnosis Acute pain of left [...] hip impingement syndrome documented in this encounter [facility] HealthcareEvaluation note* Diagnosis Acute pain of left knee- Primary Poor balance History of fall Personal history of fall Difficulty walking Difficulty in walking Leg weakness, bilateral Muscle weakness (generalized) Foot drop, right foot History of falling documented in this encounter [facility] HealthcareEvaluation note* Diagnosis Acute pain of left knee- Primary History of fall Personal history of fall Poor balance Difficulty walking Difficulty in walking Leg weakness, bilateral Muscle weakness (generalized) Foot drop, right foot History of falling Left hip impingement syndrome Right hip impingement syndrome documented in this encounter [facility] HealthcareEvaluation note* Diagnosis Swelling of joint of [...] hernia repair Hospitalization History see surg hx [facility] [employer] Other History general Narrative - Reported* Type [...] eyes Hospitalization History see surgery list [facility]. Other [place] [facility] - [facility] Other Hospital course Narrative No data available for this section [facility] Discharge instructions No data available for this section [facility] [employer] progress note No data available for this section [facility] reason for referral (narrative)* Consultation (Routine) - Authorized Specialty Diagnoses / Procedures Referred By Contac t Referred To Contact Cardiology Diagnoses Arteriosclerosis of coronary artery Procedures Follow Up In Cardiology Marisol Connors MD [address] [place] [address] 2, [address] [address] Marisol Connors MD [address] [place] [address] 2, [place] [address] Referral ID Status Reason Start Date Expiration Date V isits Requested Visits Authorized [id number] Authorized 11/14/2023 11/13/2024 1 1 [facility] Work Phone: Reason for referral (narrative)* Consultation (Routine) - Authorized Specialty Diagnoses / Procedures Referred By Contac t Referred To Contact Cardiology Diagnoses Arteriosclerosis of coronary artery Procedures Follow Up In Cardiology Marisol Connors MD [address] [facility] [address] [place] [address] Marisol Connors MD [address] [facility] [address] [place] [address] Referral ID Status Reason Start Date Expiration Date V isits Requested Visits Authorized [id number] Authorized 05/22/2024 05/22/2025 1 1 [facility] Work Phone: Reason for visit Narrative* Consultation (Routine) - Authorized Specialty Diagnoses / Procedures Referred By Contbenjamin t Referred To Contact Physical Therapy Diagnoses Acute pain of left knee Foot drop, right foot History of falling Left hip impingement syndrome Right hip impingement syndrome Procedures [place] OFFICE/OUTPATIENT NEW HIGH MDM 60 MINUTES Fatoumata Montes PA [address] [facility] [address] [place] [address] Philip Aldrich, PT [address] [address] Referral ID Status Reason Start Date Expiration Date Visits Requested Visits Authorized [id number] Authorized Consult and Treat 05/13/2024 11/09/2024 99 99 [facility] for [facility] Narrative* Consultation (Routine) - Closed Specialty Diagnoses / Procedures Referred By Contbenjamin t Referred To Contact Physical Therapy Diagnoses Acute pain of left knee Foot drop, right foot History of falling Left hip impingement syndrome Right hip impingement syndrome Procedures [place] OFFICE/OUTPATIENT NEW HIGH MDM 60 MINUTES Fatoumata Montes PA [address] [facility] [address] [place] [address] Philip Aldrich, PT [address] [facility] [address] [place] [address] Referral ID Status Reason Start Date Expiration Date V isits Requested Visits Authorized [id number] Closed Consult and Treat 05/13/2024 11/09/2024 99 [...] Provider Specialty Internal Me dicine Referred Organization [facility] Center Referred Provider Allison Kenyon Referred Address [address] [place],[address] Referred Provider Specialty Neurological Surgery Referral Priority [...] section and content) DATE CREATED AUTHOR 04/23/2018 [facility] DATE CREATED AUTHOR AUTHOR'S ORGANIZ ATION 09/10/2020 [facility] DATE CREATED AUTHOR AUTHOR'S ORGANIZ ATION 12/26/2021 [facility] DATE CREATED AUTHOR AUTHOR'S ORGANIZ ATION 03/11/2023 [facility] ical Center DATE CREATED AUTHOR AUTHOR'S ORGANIZ ATION 03/11/2023 [facility] DATE CREATED AUTHOR AUTHOR'S ORGANIZ ATION 03/18/2023 [facility] DATE CREATED AUTHOR AUTHOR'S ORGANIZ ATION 05/25/2024 [facility] DATE CREATED AUTHOR AUTHOR'S ORGANIZ ATION 06/19/2024 [facility] DATE CREATED AUTHOR AUTHOR'S ORGANIZ ATION 08/13/2024 [facility] DATE CREATED AUTHOR AUTHOR'S ORGANIZ ATION 09/26/2024 [facility] DATE CREATED AUTHOR AUTHOR'S ORGANIZ ATION 11/17/2024 [facility] dical Specialists EPIC Care Team (unrecognized [...] January 18, 2024 End: January 18, 2024 Supervising Film Or Videotape Editor Relationship Specialty Start Date End Date Devang Hall DO [facility] [address] [facility] [place] [address] PCP - General Internal Medicine 11/14/23 Team [...] June 13, 2024 End: June 13, 2024 Supervising Film Or Videotape Editor Relationship Specialty Start Date End Date Devang Hall MD [address] [place] [phone] PCP - General Internal Medicine 02/25/24 Supervising Film Or Videotape Editor Relationship Specialty Start Date End Date Devang Hall MD [address] [place] [address] PCP - General Internal Medicine 02/25/24 Supervising Film Or Videotape Editor Relationship Specialty Start Date End Date Devang Hall MD [address] [place] [address] PCP - General Internal Medicine 02/25/24 Supervising Film Or Videotape Editor Relationship Specialty Start Date End Date Devang Hall MD [address] [place] [id number] PCP - General Internal Medicine 02/25/24 Supervising Film Or Videotape Editor Relationship Specialty Start Date End Date Devang Hall MD [address] [place] [phone] PCP - General Internal Medicine 02/25/24 Supervising Film Or Videotape Editor Relationship Specialty Start Date End Date Devang Hall MD [address] [place] [facility] [place] [address] PCP - General Internal Medicine 02/25/24 Supervising Film Or Videotape Editor Relationship Specialty Start Date End Date Devang Hall MD [address] [place] [place] [address] PCP - General Internal Medicine 02/25/24 Supervising Film Or Videotape Editor Relationship Specialty Start Date End Date Devang Hall MD [address] [place] [place] [address] PCP - General Internal Medicine 02/25/24 Supervising Film Or Videotape Editor Relationship Specialty Start Date End Date Devang Hall MD [address] [place] [place] [address] PCP - General Internal Medicine 02/25/24 Supervising Film Or Videotape Editor Relationship Specialty Start Date End Date Devang Hall MD [address] [place] [place] [address] PCP - General Internal Medicine 02/25/24 Supervising Film Or Videotape Editor Relationship Specialty Start Date End Date Devang Hall DO PCP - General Internal Medicine 11/14/23 Supervising Film Or Videotape Editor Relationship Specialty Start Date End Date Devang Hall MD [address] [place] [place] [address] PCP - General Internal Medicine 02/25/24 Supervising Film Or Videotape Editor Relationship Specialty Start Date End Date Devang Hall MD [address] [place] [place] [address] PCP - General Internal Medicine 02/25/24 Supervising Film Or Videotape Editor Relationship Specialty Start Date End Date Devang Hall MD [address] [place] [place] [address] PCP - General Internal Medicine 02/25/24 Supervising Film Or Videotape Editor Relationship Specialty Start Date End Date Devang Hall MD [address] [place] [place] [address] PCP - General Internal Medicine 02/25/24 Supervising Film Or Videotape Editor Relationship Specialty Start Date End Date Devang Hall MD [address] [place] [place] [address] PCP - General Internal Medicine 02/25/24 Supervising Film Or Videotape Editor Relationship Specialty Start Date End Date Devang Hall MD [address] [place] [place] [address] PCP - General Internal Medicine 02/25/24 Supervising Film Or Videotape Editor Relationship Specialty Start Date End Date Devang Hall MD [address] [place] [place] [address] PCP - General Internal Medicine 02/25/24 Supervising Film Or Videotape Editor Relationship Specialty Start Date End Date Devang Hall MD [address] [place] [place] [address] PCP - General Internal Medicine 02/25/24 Supervising Film Or Videotape Editor Relationship Specialty Start Date End Date Devang Hall MD [address] [place] [place] [address] PCP - General Internal Medicine 02/25/24 Supervising Film Or Videotape Editor Relationship Specialty Start Date End Date Devang Hall MD [address] [place] [place] [address] PCP - General Internal Medicine 02/25/24 Supervising Film Or Videotape Editor Relationship Specialty Start Date End Date Devang Hall MD [address] [place] [address] PCP - General Internal Medicine 02/25/24 REASON FOR VISIT (unrecogniz ed section and content) Reason Comments Follow-up 6 month Reason Comments Follow-up 6 months Specialty Diagnoses / Procedures Referred By Jonathan t Referred To Contact Cardiology Diagnoses Arteriosclerosis of coronary artery Procedures Follow Up In Cardiology Marisol Connors MD [address] [place] [address], [place] [phone] Marisol Connors MD [address] [place] [address], [place] [phone] Referral ID Status Reason Start Date Expiration Date V isits Requested Visits Authorized [id number] Authorized 11/14/2023 11/13/2024 1 1 Reason Onset [...] BE BASED ON THE PRIMARY CLINICAL RECORDS. [facility]. provides no warranty or guarantee of the accuracy or completeness of information in this document.
== END 2025-01-12 08:47 | disposition home or self-care (01) ==
LOC: MRI 08:46
PROVIDERS: PCP Internal Medicine
DX: M54.50 Low back pain, unspecified (principal); M51.369 Other intervertebral disc degeneration, lumbar region without mention of lumbar back pain or lower extremity pain; M48.062 Spinal stenosis, lumbar region with neurogenic claudication
CPT/HCPCS: 72131; 72148

== ENCOUNTER 2025-01-26 10:05 | Outpatient (OUT) | payer MEDICARE, SELFPAY ==
[2025-01-26 10:25] LABS: Basophils Percent Auto 0.3 % (0.2-2.0); Eosinophils Absolute Auto 0.1 10^3/uL (0.0-0.7); Eosinophils Percent Auto 1.2 % (0.9-7.0); Hematocrit 43.4 % (42.0-54.0); Hemoglobin 14.9 g/dL (14.0-18.0); Immature Granulocytes Abs Auto 0.06 10^3/uL (0.00-0.03); Immature Granulocytes Pct Auto 0.8 % (0.0-0.5); Lymphocytes Absolute Auto 1.3 10^3/uL (1.2-3.8); Lymphocytes Percent Auto 16.6 % (20.5-60.0); Mean Corpuscular HGB Conc 34.3 g/dL (29.9-35.2); Mean Corpuscular Hemoglobin 31.8 pg (25.9-34.0); Mean Corpuscular Volume 92.5 fL (80.0-94.0); Mean Platelet Volume 10.2 fL (9.5-13.5); Monocytes Absolute Auto 0.6 10^3/uL (0.3-0.8); Monocytes Percent Auto 7.5 % (1.7-12.0); Neutrophils Absolute Auto 5.7 10^3/uL (1.4-6.5); Neutrophils Percent Auto 73.6 % (43.0-75.0); Platelet Count 238 10^3/uL (150-450); Red Blood Count 4.69 10^6/uL (4.70-6.10); White Blood Count 7.8 10^3/uL (4.0-11.0)
--- NOTE | 2025-01-26 10:35 | XR_ITS ---
The [place] [id number] Patient Name: RIDGE ROLAND MRN: [id number] date: 1945 Sex: M Assigned Patient Location: LAB Current Patient Location: LAB Accession/Order Number: [id number] Exam Date: 01/26/2025 14:18 Report Date: 01/26/2025 14:20 At the request of: MARTI RODRIGUEZ MD Procedure: XR chest 2V Chest 2 views CLINICAL HISTORY: Lumbar Stenosis With Neurogenic Claudication COMPARISON: Chest 12/24/2023 FINDINGS: The heart is normal in size. A questionable nodular opacity seen projecting over the left midlung. No new consolidation pneumothorax pleural effusion or free air. XR/XR chest 2V IMPRESSION: QUESTIONABLE NODULAR OPACITY PROJECTING OVER THE LEFT MIDLUNG. FURTHER EVALUATION WITH CT IS SUGGESTED. Impression dictated by: Deonte Kent Jr. DIlirOIlir01/26/2025 2:20 PM Dictation Location[facility] Electronically authenticated by: [id number] Y Date: 01/26/2025 14:20
--- NOTE | 2025-01-26 10:40 | ECG_ITS ---
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
[2025-01-26 10:46] LABS: Anion Gap 12.3; BUN Creatinine Ratio 20.2; Calcium 9.2 mg/dL (8.5-10.1); Carbon Dioxide 29.9 mmol/L (21.0-32.0); Chloride 100 mmol/L (98-107); Estimated GFR (African America >60 (>=60 mL/min/1.73m^2); Estimated GFR (Non-African Ame >60 (>=60 mL/min/1.73m^2); Glucose 129 mg/dL (74-106); Potassium 4.2 mmol/L (3.5-5.1); Sodium 138 mmol/L (136-145)
[2025-01-26 10:58] LABS: INR 1.08; Partial Thromboplastin Time 28.2 sec (22.3-36.2); Prothrombin Time 11.4 sec (9.0-11.6)
== END 2025-01-26 10:06 | disposition home or self-care (01) ==
PROVIDERS: PCP Internal Medicine; Visit Provider Orthopaedic Surgery Orthopaedic Surgery of the Spine
DX: Z01.810 Encounter for preprocedural cardiovascular examination (principal); Z01.812 Encounter for preprocedural laboratory examination; M48.062 Spinal stenosis, lumbar region with neurogenic claudication; M51.362 Other intervertebral disc degeneration, lumbar region with discogenic back pain and lower extremity pain; M21.371 Foot drop, right foot; M21.372 Foot drop, left foot; M48.061 Spinal stenosis, lumbar region without neurogenic claudication; R91.8 Other nonspecific abnormal finding of lung field
CPT/HCPCS: 36415; 71046; 80048; 85025; 85610; 85730; 87081; 93005

== ENCOUNTER 2025-02-04 07:51 | Outpatient (OUT) | payer MEDICARE, SELFPAY ==
--- NOTE | 2025-02-04 07:56 | CT_ITS ---
The [address] [address] Patient Name: RIDGE ROLAND MRN: [id number] date: 1945 Sex: M Assigned Patient Location: CT Current Patient Location: CT Accession/Order Number: [id number] Exam Date: 02/04/2025 08:16 Report Date: 02/04/2025 08:29 At the request of: DOROTHY HALL DO Procedure: CT chest wo con CT CHEST WITHOUT CONTRAST COMPARISON: Chest x-ray 01/26/2025 CLINICAL DATA: Follow up left lung nodule. Spiral images were obtained through the chest without contrast. Images were reviewed using both narrow and wide window settings. This CT exam was performed using one or more following dose reduction techniques: Automated exposure control, adjustment of the mA and/or kV according to patient size, or use of iterative reconstruction technique. The heart is within normal limits for size. No pericardial effusion is seen. There is coronary disease. The ascending aorta is ectatic. There is minor plaque at the aortic arch, descending aorta and proximal great vessels. There are small nonpathologic mediastinal and bilateral axillary lymph nodes. Left hilar calcified granulomas are seen. There is a potential tiny right thyroid hypodense nodule at the inferior pole. There is subtle dextroscoliotic curvature and endplate spurring at the spine. Patient has a dorsal stimulator. There is pleural plaque bilaterally with areas of associated calcification. This is believed to correlate with the nodular opacity seen on plain film. There is minor scarring and/or atelectasis. There are tiny scattered bilateral 3 - 4 mm pulmonary nodules. A couple calcified granulomas are also noted. There is no consolidation, pleural effusion or pneumothorax. Limited imaging through the upper abdomen shows calcified splenic granulomas. There is additional atherosclerotic disease. CT/CT chest wo con IMPRESSION: GRANULOMATOUS CHANGES. TINY NONCALCIFIED PULMONARY NODULES. FOLLOW-UP IS SUGGESTED ACCORDING TO [employer] GUID[employer]INES. CALCIFIED PLEURAL PLAQUE. THIS IS BELIEVED TO ACCOUNT FOR THE NODULAR OPACITY SEEN ON PLAIN FILM. Impression dictated by: Tiarra Siegel M.D.02/04/2025 8:29 AM Dictation Location: [place] [address] Electronically authenticated by: [id number] Y Date: 02/04/2025 08:29
--- OUTSIDE RECORDS SUMMARY | 2025-02-04 08:10 | XMS_ITS | CCD ---
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 nitrites and leuks. see #1. Ordered: E&M of Est. Patient Moderate 30-39 Min 80207 Urnls Dip Stick Auto w/o Microscopy POC 59450 4. ED (erectile dysfunction) (N52.9: Male erectile [...] few wee (more content not included)... Normal [facility] Comment on above: Result Comment: Elec tronically Signed By: ALANIS WOOD PA-C\.br\Date and Time Signed: 06/12/24 11:06 EDT\.br\Electronically Co-Signed By: Radha Ohara\.br\Date and Time Co-Signed: 06/12/24 10:32 EDT Cholesterol in LDL Calc [Mas s/Vol]on 04-29-2024 Cholesterol in LDL [Mass/Vol] 59.0 mg/dL [facility] Comment on above: <100 mg/dl [id number] 0-129 mg/dl NEAR OR ABOVE [id number] mg/dl BORDERLINE HGFR515-003 mg/dl HIGH>190 mg/dl VERY HIGH Cholesterol in VLDL Calc [Ma ss/Vol]on 04-29-2024 Cholesterol in VLDL [Mass/Vol] 11.4 mg/dL [facility] Estimated glomerular filtrat ion rate (GFR) non- Americanon 04-29-2024 GFR/1.73 sq M.predicted among non-blacks MDRD (S/P/Bld) [Vol rate/Area] mL/min/{1.73_m2} >=60 [facility] Globulin Calc (S) [Mass/Vol] on 04-29-2024 Globulin (S) [Mass/Vol] 3.4 g/dL [facility] - Chemistry and C hemistry - challengeon 04-29-2024 Albumin [Mass/Vol] 3.8 g/dL 3.4-5.0 [facility] ALP [Catalytic activity/Vol] 89 U/L 46-116 [facility] ALT [Catalytic activity/Vol] 24 U/L 16-63 [facility] AST [Catalytic activity/Vol] 14 U/L Low 15-37 [facility] Bilirubin [Mass/Vol] 0.9 mg/dL 0.2-1.0 [facility] Calcium [Mass/Vol] 9.5 mg/dL 8.5-10.1 [facility] Chloride [Moles/Vol] 99 mmol/L 98-107 [facility] Cholesterol [Mass/Vol] 138 mg/dL <=200 [facility] Cholesterol in HDL [Mass/Vol] 68 mg/dL High 40-60 [facility] Comment on above: > or =60 mg/dl - LOW CARDIOVASCULAR RISK<40 mg/dl - HIGH CARDIOVASCULAR RISK CO2 [Moles/Vol] 27.8 mmol/L 21.0-32.0 [facility] Creatinine [Mass/Vol] 0.82 mg/dL 0.70-1.30 [facility] GFR/1.73 sq M.predicted MDRD (S/P/Bld) [Vol rate/Area] mL/min/{1.73_m2} >=60 [facility] Glucose [Mass/Vol] 109 mg/dL High 74-106 [facility] Potassium [Moles/Vol] 3.8 mmol/L 3.5-5.1 [facility] Protein [Mass/Vol] 7.2 g/dL 6.4-8.2 [facility] Sodium [Moles/Vol] 137 mmol/L 136-145 [facility] Triglyceride [Mass/Vol] 57 mg/dL <=150 [facility] Urea nitrogen [Mass/Vol] 18.0 mg/dL 7.0-18.0 [facility] Urea nitrogen/Creatinine [Mass ratio] 22.0 mg/mg [facility] Serum or plasma albumin/glob ulin mass ratioon 04-29-2024 Albumin/Globulin [Mass ratio] 1.1 {ratio} [facility] Serum or plasma anion gap de terminationon 04-29-2024 Anion gap [Moles/Vol] 14.0 mmol/L [facility] Serum or plasma total choles terol/high density lipoprotein (HDL) cholesterol mass seema 04-29-2024 Cholesterol.total/Ch olesterol in HDL [Mass ratio] 2.0 {ratio} [facility] Comment on above: 3.3 - 4.4 LOW RISK4. 4 - 7.1 AVERAGE RISK7.1 - 11.0 MODERATE RISK>11.0 HIGH RISK Consent for Treatmenton 03-05 Consent for Treatment [id number]#1.00T IFF Normal [facility] Consultation Noteon 03-14-20 Consultation Note Patient: KEILA [...] day(s), # 60 cap(s), Refills(s) 1, Pharmacy: [facility]/pharmacy #[id number], 193, cm, 01/25/24 13:38:00 EDT, Height/Length Dosing, 102.4, kg, 01/25/24 13:38:00 EDT, Weight Dosing Viagra 50 mg Tab: See Instructions, 1-2 tab(s) po 1 hr before sexual acitivity. do not exceed 2 tabs in 24 hrs., # 15 tab(s), Refills(s) 3, [id number] 193, cm, 08/31/22 9:11:00 EDT, Height/Length Dosing, 114.5, kg, 08/31/22 9:11:00 EDT, Weight Dosing... amitriptyline 10 mg Tab: 10 mg = 1 tab(s), Oral, Once a day (at bedtime), X 30 day(s), # 30 tab(s), Refills(s) 1, [id number] 193, cm, 03/14/24 9:55:00 EDT, Height/Length Dosing, 104.5, kg, 03/14/24 9:55:00 EDT, Weight Dosing pregabalin 25 mg Cap: 25 mg = 1 cap(s), Oral, BID, # 60 cap(s), Refills(s) 2, [id number] 193, cm, 11/09/23 11:29:00 [...] list: All Problems Hypercholesterolemia / SNOMED CT 16944056 / Confirmed Hernia, inguinal, right / SNOMED CT 911073940 / Confirmed BPH with urinary obstruction / SNOMED CT 2006500327 / Confirmed Elevated PSA / SNOMED CT 4996982921 / Confirmed Impotence / SNOMED CT 8022085922 / Confirmed Urinary frequency / SNOMED CT 687198157 / Confirmed Nocturia / SNOMED CT 080441308 / Confirmed Weak urinary stream / SNOMED CT 819816233 / Confirmed Gross hematuria / SNOMED CT 700146352 / Confirmed Anticoagulated / SNOMED CT 452441121 / Confirmed Urge incontinence / SNOMED CT 477976260 / Confirmed Chronic prostatitis / SNOMED CT 36085284 / Confirmed Dysuria / SNOMED CT 16601177 / Confirmed Urinary retention / SNOMED CT 761293855 / Confirmed BMI 31.0-31.9,adult / SNOMED CT 172660079 / Confirmed Incomplete bladder emptying / SNOMED CT 544524832 / Confirmed Post-void dribbling / SNOMED CT 758378085 / Confirmed Incontinence without sensory awareness / SNOMED CT 0618410829 / Confirmed At risk for falls / SNOMED CT 164743471 / Possible ED (erectile dysfunction) / SNOMED CT 5653498939 / Confirmed Leaking of urine / SNOMED CT 0808459374 / Confirmed Urinary incontinence / SNOMED CT 2329153469 / Confirmed Prostate cancer screening / SNOMED CT 511958018 / Confirmed Resolved: Hypertension / SNOMED CT 5151772677 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 5/5 strength Integumentary: Warm, Dry, Phillips. Neurologic: Alert, Oriented. Psy (more content not included)... Normal [facility] Comment on above: Result Comment: Elec tronically Signed By: Stephenie Barrios PA-C\.br\Date and Time Signed: 03/14/24 10:17 EDT Office/Clinic Note-Physician on 03-14-2024 Office/Clinic Note-Physician [id number]#1.00T IFF Normal [facility] Patient Correspondenceon Patient Correspondence [id number]#1.00T IFF Normal [facility] Patient Correspondence [id number]#1.00T IFF Normal [facility] Patient History Officeon Patient History Office [id number]#1.00T IFF Normal [facility] Consent for Treatmenton 01-04 Consent for Treatment [id number]#1.00 TIFF Normal [facility] Consultation Noteon 01-25-20 Consultation Note Patient: KEILA [...] day(s), # 60 cap(s), Refills(s) 1, [id number] 193, cm, 01/25/24 13:38:00 EDT, Height/Length Dosing, 102.4, kg, 01/25/24 13:38:00 EDT, Weight Dosing Viagra 50 mg Tab: See Instructions, 1-2 tab(s) po 1 hr before sexual acitivity. do not exceed 2 tabs in 24 hrs., # 15 tab(s), Refills(s) 3, [id number] 193, cm, 08/31/22 9:11:00 EDT, Height/Length Dosing, 114.5, kg, 08/31/22 9:11:00 EDT, Weight Dosing... pregabalin 25 mg Cap: 25 mg = 1 cap(s), Oral, BID, # 60 cap(s), Refills(s) 2, [id number] 193, cm, 11/09/23 11:29:00 [...] list: All Problems Hypercholesterolemia / SNOMED CT 67506523 / Confirmed Hernia, inguinal, right / SNOMED CT 425797537 / Confirmed BPH with urinary obstruction / SNOMED CT 1386644334 / Confirmed Elevated PSA / SNOMED CT 0346721556 / Confirmed Impotence / SNOMED CT 8873224915 / Confirmed Urinary frequency / SNOMED CT 781781775 / Confirmed Nocturia / SNOMED CT 267983902 / Confirmed Weak urinary stream / SNOMED CT 055756938 / Confirmed Gross hematuria / SNOMED CT 768389092 / Confirmed Anticoagulated / SNOMED CT 109430737 / Confirmed Urge incontinence / SNOMED CT 283486349 / Confirmed Chronic prostatitis / SNOMED CT 61842976 / Confirmed Dysuria / SNOMED CT 38741818 / Confirmed Urinary retention / SNOMED CT 865222166 / Confirmed BMI 31.0-31.9,adult / SNOMED CT 867368043 / Confirmed Incomplete bladder emptying / SNOMED CT 902761219 / Confirmed Post-void dribbling / SNOMED CT 315240353 / Confirmed Incontinence without sensory awareness / SNOMED CT 8516373176 / Confirmed At risk for falls / SNOMED CT 309187657 / Possible ED (erectile dysfunction) / SNOMED CT 2259767223 / Confirmed Leaking of urine / SNOMED CT 6789274059 / Confirmed Urinary incontinence / SNOMED CT 8443787723 / Confirmed Prostate cancer screening / SNOMED CT 876090667 / Confirmed Resolved: Hypertension / SNOMED CT 3339439465 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 Normal [facility] Comment on above: Result Comment: Elec tronically Signed By: Sophie SHIPMAN, Stephenie\.br\Date and Time Signed: 01/25/24 13:48 EDT Office/Clinic Note-Physician on 01-25-2024 Office/Clinic Note-Physician [id number]#1.00 TIFF Normal [facility] Patient Correspondenceon Patient Correspondence [id number]#1.00 TIFF Normal [facility] Patient Correspondence [id number]#1.00 TIFF Normal [facility] Patient Correspondence [id number]#1.00 TIFF Normal [facility] Patient History Officeon Patient History Office [id number]#1.00 TIFF Normal [facility] Consent for Procedure/Surger yon 01-09-2024 Consent for Procedure/Surgery [id number]#1.00T IFF Normal [facility] Consent for Treatmenton Consent for Treatment [id number]#1.00T IFF Normal [facility] Discharge Instructionson Discharge Instructions [id number]#1.00T IFF Normal [facility] IntraOperative Documentson 0 01-09-2024 IntraOperative Documents [id number]#1.00T IFF Normal [facility] Main OR Intraoperative Recor don 01-09-2024 Main OR Intraoperative Record IntraOp Document Type FTPM Summary Primary Physician: Bert Huang DO Finalized Date/Time: 01/09/24 11:31:11 Pt. Name: RIDGE ROLAND [place]/Sex: 1945 Male Med Rec #: [id number] Physician: Bert Huang DO Financial #: [id number] Pt. Type: P Room/Bed: / Admit/Disch: 01/09/24 [...] Tomasa Davidson Role Performed Surgeon - Primary Rn Patient Services - Primary Scrub - Primary Time In 01/09/24 11:25:00 01/09/24 11:25:00 01/09/24 11:25:00 Time Out 01/09/24 11:31:00 01/09/24 11:31:00 01/09/24 11:31:00 Procedure SACROILIAC JOINT SACROILIAC JOINT SACROILIAC JOINT INJECTION(Bilateral) INJECTION(Bilateral) INJECTION(Bilateral) Comments Last Modified By: Gerry JENNINGS, Savannah Garrett RN, Savannah Tsai RN 01/09/24 11:31:02 01/09/24 11:31:02 01/09/24 11:31:02 Entry 4 Case Attendee Scott Craig Role Performed Alteration Manager Time In 01/09/24 11:25:00 Time Out 01/09/24 [...] and tissue Entry 1 Skin Integrity Intact, Phillips, Warm, and Skin Abnormality No Dry Outcomes [...] Met? Y (more content not included)... Normal [facility] Main OR Preoperative Recordo n 01-09-2024 Main OR Preoperative Record Holding Area Document Type FTPM Summary Primary Physician: Bert Huang DO Finalized Date/Time: 01/09/24 11:01:07 Pt. Name: RIDGE ROLAND/Sex: 1945 Male Med Rec #: [id number] Physician: Bert Huang DO Financial #: [id number] Pt. Type: P Room/Bed: / Admit/Disch: 01/09/24 [...] By: Anupama Huggins RN 01/09/24 11:01 Normal [facility] Automated epithelial cells c ount in urine sediment (number/area)on 12-24-2023 Epithelial cells Auto (Urine sed) [#/Area] FEW #/LPF NONE/RARE [facility] Automated leukocytes count i n urine sediment (number/area)on 12-24-2023 WBC Auto (Urine sed) [#/Area] NONE SEEN #/HPF 0-2 [facility] Automated urine specific gra vity by refractometryon 12-24-2023 Specific gravity Refractometry automated (U) [Rel density] 1.020 1.005-1.025 [facility] Basophils Auto (Bld) [#/Vol] on 12-24-2023 Basophils (Bld) [#/Vol] 0.0 10 3/uL 0.0-0.1 [facility] Basophils/100 WBC Auto (Bld) on 12-24-2023 Basophils/100 WBC (Bld) 0.4 % 0.2-2.0 [facility] Bilirubin Auto test strip (U ) [Mass/Vol]on 12-24-2023 Bilirubin (U) [Mass/Vol] Negative NEGATIVE [facility] Color Auto (U)on 12-24-2023 Color (U) YELLOW YELLOW [facility] Eosinophils/100 WBC Auto (Bl d)on 12-24-2023 Eosinophils/100 WBC (Bld) 0.9 % 0.9-7.0 [facility] Erythrocyte distribution wid th Auto (RBC) [Ratio]on 12-24-2023 Erythrocyte distribution width (RBC) [Ratio] 13.3 % 11.0-15.0 [facility] Estimated glomerular filtrat ion rate (GFR) non- Americanon 12-24-2023 GFR/1.73 sq M.predicted among non-blacks MDRD (S/P/Bld) [Vol rate/Area] mL/min/{1.73_m2} >=60 [facility] Hematocrit Auto (Bld) [Volum e fraction]on 12-24-2023 Hematocrit (Bld) [Volume fraction] 45.1 % 42.0-54.0 [facility] Hemoglobin [Mass/volume] in Bloodon 12-24-2023 Hemoglobin (Bld) [Mass/Vol] 15.3 g/dL 14.0-18.0 [facility] Ketones Auto test strip (U) [Mass/Vol]on 12-24-2023 Ketones (U) [Mass/Vol] Negative NEGATIVE [facility] - Chemistry and C hemistry - challengeon 12-24-2023 Calcium [Mass/Vol] 9.1 mg/dL 8.5-10.1 [facility] Chloride [Moles/Vol] 102 mmol/L 98-107 [facility] CO2 [Moles/Vol] 25.5 mmol/L 21.0-32.0 [facility] Creatinine [Mass/Vol] 0.73 mg/dL 0.70-1.30 [facility] GFR/1.73 sq M.predicted MDRD (S/P/Bld) [Vol rate/Area] mL/min/{1.73_m2} >=60 [facility] Glucose [Mass/Vol] 113 mg/dL 74-106 [facility] Potassium [Moles/Vol] 3.8 mmol/L 3.5-5.1 [facility] Sodium [Moles/Vol] 138 mmol/L 136-145 [facility] Urea nitrogen [Mass/Vol] 13.0 mg/dL 7.0-18.0 [facility] Urea nitrogen/Creatinine [Mass ratio] 17.8 mg/mg [facility] - Hematology and Cell countson 12-24-2023 Immature granulocytes/100 WBC (Bld) 0.6 % 0.0-0.5 [facility] Leukocytes [#/volume] correc yina for nucleated erythrocytes in Blood by Automated counon 12-24-2023 WBC corrected for nucl RBC Auto (Bld) [#/Vol] 9.5 10 3/uL 4.0-11.0 [facility] Lymphocytes Auto (Bld) [#/Vo l]on 12-24-2023 Lymphocytes (Bld) [#/Vol] 1.1 10 3/uL 1.2-3.8 [facility] Lymphocytes/100 WBC Auto (Bl d)on 12-24-2023 Lymphocytes/100 WBC (Bld) 11.5 % 20.5-60.0 [facility] MCH Auto (RBC) [Entitic mass ]on 12-24-2023 MCH (RBC) [Entitic mass] 31.2 pg 25.9-34.0 [facility] MCHC Auto (RBC) [Mass/Vol]on 12-24-2023 MCHC (RBC) [Mass/Vol] 33.9 g/dL 29.9-35.2 [facility] MCV Auto (RBC) [Entitic vol] on 12-24-2023 MCV (RBC) [Entitic vol] 92.0 fL 80.0-94.0 [facility] Monocytes Auto (Bld) [#/Vol] on 12-24-2023 Monocytes (Bld) [#/Vol] 0.7 10 3/uL 0.3-0.8 [facility] Monocytes/100 WBC Auto (Bld) on 12-24-2023 Monocytes/100 WBC (Bld) 7.7 % 1.7-12.0 [facility] Mucus LM Ql (Urine sed)on Mucus Ql (Urine sed) SMALL NONE SEEN [facility] Neutrophils Auto (Bld) [#/Vo l]on 12-24-2023 Neutrophils (Bld) [#/Vol] 7.5 10 3/uL 1.4-6.5 [facility] Neutrophils/100 WBC Auto (Bl d)on 12-24-2023 Neutrophils/100 WBC (Bld) 78.9 % 43.0-75.0 [facility] No Panel Informationon 12-24 Eosinophils # (Auto) 0.1 10 3/uL 0.0-0.7 [facility] Immature Granulocyte # (Auto) 0.06 10 3/uL 0.00-0.03 [facility] Platelet mean volume Auto (B ld) [Entitic vol]on 12-24-2023 Platelet mean volume (Bld) [Entitic vol] 10.7 fL 9.5-13.5 [facility] Platelets Auto (Bld) [#/Vol] on 12-24-2023 Platelets (Bld) [#/Vol] 197 10 3/uL 150-450 [facility] Protein Auto test strip (U) [Mass/Vol]on 12-24-2023 Protein (U) [Mass/Vol] Negative NEG/TRACE [facility] RBC Auto (Bld) [#/Vol]on RBC (Bld) [#/Vol] 4.90 10 6/uL 4.70-6.10 [facility] Serum or plasma anion gap de terminationon 12-24-2023 Anion gap [Moles/Vol] 14.3 mmol/L [facility] Specific gravity Auto test s trip (U) [Rel density]on 12-24-2023 Specific gravity (U) [Rel density] CLEAR CLEAR [facility] Urine bacteria detection by automated methodon 12-24-2023 Bacteria Auto Ql (U) NONE SEEN #/HPF NONE SEEN [facility] Urine glucose measurement by test strip (mass/volume)on 12-24-2023 Glucose Test strip (U) [Mass/Vol] Negative NEGATIVE [facility] Urine hemoglobin detection b y automated test stripon 12-24-2023 Hemoglobin Auto test strip Ql (U) Negative NEGATIVE [facility] Urine nitrite detection by a utomated test stripon 12-24-2023 Nitrite Auto test strip Ql (U) Negative NEGATIVE [facility] Urine sediment leukocyte cou nt by microscopy (number/high power field)on 12-24-2023 WBC LM.HPF (Urine sed) [#/Area] NONE SEEN #/HPF NONE SEEN [facility] Urobilinogen Auto test strip (U) [Mass/Vol]on 12-24-2023 Urobilinogen Qn (U) 0.2 {Kathia'U}/dL 0.2-1.0 [facility] pH Auto test strip (U)on pH (U) 6.5 [pH] 5.0-9.0 [facility] Patient Correspondenceon Patient Correspondence [id number]#1.00T IFF Normal [facility] Insurance Correspondence Off iceon 12-17-2023 Insurance Correspondence Office [id number]#2.00 TIFF Normal [facility] Patient Educationon 12-14-19 Patient Education Urology Urinary [...] stimulation). ? For women, using a medical assistant per diem to prevent urine leaks. This is a [...] urine. ? (more content not included)... Normal [facility] Urology Office/Clinic Noteon 12-14-2023 Urology Office/Clinic Note [...] needed [facility] [address], [place] [address] [phone] Additional Instructions: Patient Education Urinary Incontinence I, [...] guidance (05/01/ (more content not included)... Normal [facility] Comment on above: Result Comment: Elec tronically Signed By: Homero XAVIER MD\.br\Date and Time Signed: 12/14/23 11:03 EST\.br\Electronically Co-Signed By: Lina Perkins\.br\Date and Time Co-Signed: 12/14/23 11:01 EST Consent for Treatmenton Consent for Treatment [id number]#1.00T IFF Normal [facility] Consultation Noteon 12-10-19 Consultation Note [...] day(s), # 30 tab(s), Refills(s) 6, Pharmacy: [id number], 193, cm, 05/29/23 8:59:00 EDT, Height/Length Dosing, 108.9, kg, 03/19/23 8:54:00 EDT, Weight Dosing Viagra 50 mg Tab: See Instructions, 1-2 tab(s) po 1 hr before sexual acitivity. do not exceed 2 tabs in 24 hrs., # 15 tab(s), Refills(s) 3, [id number] 193, cm, 08/31/22 9:11:00 EDT, Height/Length Dosing, 114.5, kg, 08/31/22 9:11:00 EDT, Weight Dosing... pregabalin 25 mg Cap: 25 mg = 1 cap(s), Oral, BID, # 60 cap(s), Refills(s) 2, [id number] 193, cm, 11/09/23 11:29:00 [...] list: All Problems Hypercholesterolemia / SNOMED CT 64274500 / Confirmed Hernia, inguinal, right / SNOMED CT 829685365 / Confirmed BPH with urinary obstruction / SNOMED CT 7113304130 / Confirmed Elevated PSA / SNOMED CT 1266749318 / Confirmed Impotence / SNOMED CT 8306840591 / Confirmed Urinary frequency / SNOMED CT 141918185 / Confirmed Nocturia / SNOMED CT 839303106 / Confirmed Weak urinary stream / SNOMED CT 932703168 / Confirmed Gross hematuria / SNOMED CT 333776036 / Confirmed Anticoagulated / SNOMED CT 911563069 / Confirmed Urge incontinence / SNOMED CT 390038644 / Confirmed Chronic prostatitis / SNOMED CT 32978551 / Confirmed Dysuria / SNOMED CT 84038352 / Confirmed Urinary retention / SNOMED CT 311320812 / Confirmed BMI 31.0-31.9,adult / SNOMED CT 207394634 / Confirmed Incomplete bladder emptying / SNOMED CT 639123513 / Confirmed Post-void dribbling / SNOMED CT 893233309 / Confirmed Incontinence without sensory awareness / SNOMED CT 8476315952 / Confirmed At risk for falls / SNOMED CT 304371991 / Possible ED (erectile dysfunction) / SNOMED CT 3511112576 / Confirmed Leaking of urine / SNOMED CT 1895141922 / Confirmed Urinary incontinence / SNOMED CT 7542348018 / Confirmed Prostate cancer screening / SNOMED CT 982411751 / Confirmed Resolved: Hypertension / SNOMED CT 9581716079 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 Normal [facility] Comment on above: Result Comment: Elec tronically Signed By: Stephenie Barrios PA-C\.br\Date and Time Signed: 12/10/23 12:53 EST\.br\Electronically Co-Signed By: Bert Huang DO\.br\Date and Time Co-Signed: 12/11/23 09:21 EST Office/Clinic Note-Physician on 12-10-2023 Office/Clinic Note-Physician [id number]#1.00T IFF Normal [facility] Patient Correspondenceon Patient Correspondence [id number]#1.00T IFF Normal [facility] Patient Correspondence [id number]#1.00T IFF Normal [facility] Patient History Officeon Patient History Office [id number]#1.00T IFF Normal [facility] Consent for Treatmenton Consent for Treatment [id number]#1.00 TIFF Normal [facility] Consultation Noteon 11-09-19 Consultation Note Patient: KEILA [...] day(s), # 30 tab(s), Refills(s) 6, [id number] 193, cm, 05/29/23 8:59:00 EDT, Height/Length Dosing, 108.9, kg, 03/19/23 8:54:00 EDT, Weight Dosing Viagra 50 mg Tab: See Instructions, 1-2 tab(s) po 1 hr before sexual acitivity. do not exceed 2 tabs in 24 hrs., # 15 tab(s), Refills(s) 3, [id number] 193, cm, 08/31/22 9:11:00 EDT, Height/Length Dosing, 114.5, kg, 08/31/22 9:11:00 EDT, Weight Dosing... pregabalin 25 mg Cap: 25 mg = 1 cap(s), Oral, BID, # 60 cap(s), Refills(s) 2, [id number] 193, cm, 11/09/23 11:29:00 [...] list: All Problems Hypercholesterolemia / SNOMED CT 37210295 / Confirmed Hernia, inguinal, right / SNOMED CT 317097477 / Confirmed BPH with urinary obstruction / SNOMED CT 7467883424 / Confirmed Elevated PSA / SNOMED CT 3768956474 / Confirmed Impotence / SNOMED CT 4931845178 / Confirmed Urinary frequency / SNOMED CT 650061231 / Confirmed Nocturia / SNOMED CT 387052989 / Confirmed Weak urinary stream / SNOMED CT 930794136 / Confirmed Gross hematuria / SNOMED CT 498001294 / Confirmed Anticoagulated / SNOMED CT 283176369 / Confirmed Urge incontinence / SNOMED CT 079402992 / Confirmed Chronic prostatitis / SNOMED CT 94641314 / Confirmed Dysuria / SNOMED CT 84828101 / Confirmed Urinary retention / SNOMED CT 618890530 / Confirmed BMI 31.0-31.9,adult / SNOMED CT 820615312 / Confirmed Incomplete bladder emptying / SNOMED CT 794044419 / Confirmed Post-void dribbling / SNOMED CT 880337989 / Confirmed Incontinence without sensory awareness / SNOMED CT 1332144541 / Confirmed At risk for falls / SNOMED CT 731696262 / Possible ED (erectile dysfunction) / SNOMED CT 9092338715 / Confirmed Leaking of urine / SNOMED CT 1255967867 / Confirmed Urinary incontinence / SNOMED CT 8506446630 / Confirmed Prostate cancer screening / SNOMED CT 023331021 / Confirmed Resolved: Hypertension / SNOMED CT 6754635389 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 Injection sites well-healed Neurologic: Alert, Oriented. Psychiatric: Cooperative, Appropriate mood & affect. Impression and Plan Patient is a 78-year-old male with a past medical history significant for postlaminectomy syndrome, chronic pain, and lumbar spondylosis (more content not included)... Normal [facility] Comment on above: Result Comment: Elec tronically Signed By: Sophie SHIPMAN, Stephenie\.br\Date and Time Signed: 11/09/23 11:45 EST Legal Correspondence Officeo n 11-09-2023 Legal Correspondence Office [id number]#1.00 TIFF Normal [facility] Office/Clinic Note-Physician on 11-09-2023 Office/Clinic Note-Physician [id number]#1.00 TIFF Normal [facility] Patient Correspondenceon Patient Correspondence [id number]#1.00 TIFF Normal [facility] Patient Correspondence [id number]#1.00 TIFF Normal [facility] Patient Correspondence [id number]#1.00 TIFF Normal [facility] Patient Correspondence [id number]#1.00 TIFF Normal [facility] Patient History Officeon Patient History Office [id number]#1.00 TIFF Normal [facility] Consent for Procedure/Surger yon 10-08-2023 Consent for Procedure/Surgery [id number]#1.00 TIFF Normal [facility] Consent for Treatmenton Consent for Treatment [id number]#1.00 TIFF Normal [facility] Discharge Instructionson Discharge Instructions [id number]#1.00 TIFF Normal [facility] IntraOperative Documentson 1 12-09-2022 IntraOperative Documents [id number]#1.00 TIFF Normal [facility] Main OR Intraoperative Recor don 10-08-2023 Main OR Intraoperative Record IntraOp Document Type FTPM Summary Primary Physician: Bib Sanchez MD Finalized Date/Time: 10/08/23 08:08:45 Pt. Name: ASUNCION RIDGEDeneen SandsO.B./Sex: 1945 Male Med Rec #: [id number] Physician: Bib Sanchez MD Financial #: [id number] Pt. Type: P Room/Bed: / Admit/Disch: 10/08/23 06:48:57 - Institution: Case Times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 01-09-2024 11:27-0500 Heart rate 71 /min Bert Huang [facility] 01-09-2024 11:27-0500 Respiratory rate 14 /min Bert Huang [facility] 01-09-2024 11:27-0500 SaO2% (BldA) [Mass fraction] 98 % Bert Huang [facility] 01-09-2024 11:27-0500 Systolic blood pressure 154 mm[Hg] Bert Huang [facility] 01-09-2024 11:03-0500 Diastolic blood pressure 93 mm[Hg] Bert Huang [facility] 01-09-2024 11:03-0500 Heart rate 62 /min Bert Huang [facility] 01-09-2024 11:03-0500 Mean blood pressure 120 mm[Hg] Bert Huang [facility] 01-09-2024 11:03-0500 Systolic blood pressure 173 mm[Hg] Bert Huang [facility] 01-09-2024 11:01-0500 SaO2% (BldA) [Mass fraction] 96 % Bert Huang [facility] 01-09-2024 11:00-0500 Mean blood pressure 123 mm[Hg] Bert Huang [facility] 01-09-2024 11:00-0500 Body temperature 97.7 [degF] Bert Huang [facility] 01-09-2024 11:00-0500 Respiratory rate 14 /min Bert Huang [facility] 12-31-2023 09:48-0500 Body height 193.04 cm [facility] 12-31-2023 09:48-0500 Body mass index (BMI) [Ratio] 27.6 kg/m2 [facility] 12-31-2023 09:48-0500 Body weight 102.73 kg [facility] 12-31-2023 09:48-0500 Diastolic blood pressure 81 mm[Hg] [facility] 12-31-2023 09:48-0500 Heart rate 68 /min [facility] 12-31-2023 09:48-0500 Respiratory rate 16 /min [facility] 12-31-2023 09:48-0500 Systolic blood pressure 129 mm[Hg] [facility] 12-14-2023 09:54-0500 Blood Pressure Location Homero XAVIER [facility] 12-14-2023 09:54-0500 Diastolic blood pressure 81 mm[Hg] Homerokevan XAVIER [facility] 12-14-2023 09:54-0500 Heart rate 81 /min Homeor XAVIER [facility] 12-14-2023 09:54-0500 Respiratory rate 16 /min Homero XAVIER [facility] 12-14-2023 09:54-0500 Systolic blood pressure 137 mm[Hg] Homero XAVIER [facility] 12-10-2023 12:26-0500 Diastolic blood pressure 86 mm[Hg] Stephenie Barrios [facility] 12-10-2023 12:26-0500 Heart rate 60 /min Stephenie Barrios [facility] 12-10-2023 12:26-0500 Mean blood pressure 105 mm[Hg] Stephenie Barrios [facility] 12-10-2023 12:26-0500 Respiratory rate 20 /min Stephenie Barrios [facility] 12-10-2023 12:26-0500 Systolic blood pressure 144 mm[Hg] Stephenie Barrios [facility] 11-14-2023 10:31-0500 Body height 182.9 cm Marisol Connors MD Work Phone: [facility] 11-14-2023 10:31-0500 Body mass index (BMI) [Ratio] 31.33 kg/m2 Marisol Connors MD Work Phone: [facility] 11-14-2023 10:31-0500 Body weight 104.78 kg Marisol Connors MD Work Phone: [facility] 11-14-2023 10:31-0500 Diastolic blood pressure 64 mm[Hg] Marisol Connors MD Work Phone: [facility] 11-14-2023 10:31-0500 Heart rate 62 /min Marisol Connors MD Work Phone: [facility] 11-14-2023 10:31-0500 Systolic blood pressure 100 mm[Hg] Marisol Connors MD Work Phone: [facility] 11-09-2023 11:14-0500 Diastolic blood pressure 76 mm[Hg] Stephenie Barrios [facility] 11-09-2023 11:14-0500 Heart rate 67 /min Stephenie [employer] [facility] 11-09-2023 11:14-0500 Mean blood pressure 95 mm[Hg] Stephenie Barrios [facility] 11-09-2023 11:14-0500 Respiratory rate 14 /min Stephenie [employer] [facility] 11-09-2023 11:14-0500 Systolic blood pressure 132 mm[Hg] Stephenie [employer] [facility] 10-23-2023 09:00-0500 Body height 193.04 cm Devang Ball Other [facility] 10-23-2023 09:00-0500 Body mass index (BMI) [Ratio] 28.31 kg/m2 Devang Ball Other [facility] [employer] Other 10-23-2023 09:00-0500 Body weight 105.51 kg Devang Ball Other [facility] [employer] Other 10-23-2023 09:00-0500 Body weight 105.5 kg [facility] 10-23-2023 09:00-0500 Diastolic blood pressure 83 mm[Hg] Devang Ball Other [facility] 10-23-2023 09:00-0500 Respiratory rate 12 /min Devang Ball Other [facility] [employer] Other 10-23-2023 09:00-0500 Systolic blood pressure 136 mm[Hg] Devang Ball Other [facility] 10-08-2023 08:11-0500 Heart rate 62 /min Bib Laura [facility] 10-08-2023 08:11-0500 SaO2% (BldA) [Mass fraction] 93 % Bib Laura [facility] 10-08-2023 08:11-0500 Diastolic blood pressure 98 mm[Hg] Bib Laura [facility] 10-08-2023 08:11-0500 Mean blood pressure 124 mm[Hg] Bib Laura [facility] 10-08-2023 08:11-0500 Systolic blood pressure 175 mm[Hg] Bib Laura [facility] 10-08-2023 08:11-0500 Respiratory rate 16 /min Bib Laura [facility] 10-08-2023 08:02-0500 Diastolic blood pressure 90 mm[Hg] Bib Laura [facility] 10-08-2023 08:02-0500 Heart rate 63 /min Bib Laura [facility] 10-08-2023 08:02-0500 SaO2% (BldA) [Mass fraction] 97 % Bib Laura [facility] 10-08-2023 08:02-0500 Systolic blood pressure 168 mm[Hg] Bib Sanchez [facility] 10-08-2023 07:16-0500 Heart rate 61 /min Bib Laura [facility] 10-08-2023 07:16-0500 SaO2% (BldA) [Mass fraction] 95 % Bib Laura [facility] 10-08-2023 07:16-0500 Body temperature 97.88 [degF] Bib Sanchez [facility] 10-08-2023 07:16-0500 Diastolic blood pressure 91 mm[Hg] Bib Sanchez [facility] 10-08-2023 07:16-0500 Mean blood pressure 115 mm[Hg] Bib Laura [facility] 10-08-2023 07:16-0500 Systolic blood pressure 162 mm[Hg] Bib Sanchez [facility] 10-08-2023 07:12-0500 Respiratory rate 15 /min Bib Sanchez [facility] 09-14-2023 07:47-0500 Diastolic blood pressure 75 mm[Hg] Stepheniejakob Barrios [facility] 09-14-2023 07:47-0500 Heart rate 63 /min Stephenie Barrios [facility] 09-14-2023 07:47-0500 Mean blood pressure 91 mm[Hg] Stephenie Barrios [facility] 09-14-2023 07:47-0500 Respiratory rate 16 /min Stephenie Barrios [facility] 09-14-2023 07:47-0500 Systolic blood pressure 124 mm[Hg] Stephenie Barrios [facility] 08-07-2023 13:25-0400 Heart rate 61 /min Bib Laura [facility] 08-07-2023 13:25-0400 SaO2% (BldA) [Mass fraction] 97 % Bib Laura [facility] 08-07-2023 13:25-0400 Diastolic blood pressure 90 mm[Hg] Bib Laura [facility] 08-07-2023 13:25-0400 Mean blood pressure 119 mm[Hg] Bib Laura [facility] 08-07-2023 13:25-0400 Systolic blood pressure 176 mm[Hg] Bib Laura [facility] 08-07-2023 13:19-0400 Diastolic blood pressure 83 mm[Hg] Bib Laura [facility] 08-07-2023 13:19-0400 Heart rate 65 /min Bib Laura [facility] 08-07-2023 13:19-0400 SaO2% (BldA) [Mass fraction] 95 % Bib Laura [facility] 08-07-2023 13:19-0400 Systolic blood pressure 153 mm[Hg] Bib Laura [facility] 08-07-2023 12:34-0400 Heart rate 62 /min Bib Laura [facility] 08-07-2023 12:34-0400 SaO2% (BldA) [Mass fraction] 95 % Bib Laura [facility] 08-07-2023 12:34-0400 Body temperature 97.7 [degF] Bib Laura [facility] 08-07-2023 12:34-0400 Diastolic blood pressure 73 mm[Hg] Bib Laura [facility] 08-07-2023 12:34-0400 Mean blood pressure 101 mm[Hg] Bib Laura [facility] 08-07-2023 12:34-0400 Systolic blood pressure 157 mm[Hg] Bib Laura [facility] 08-07-2023 12:33-0400 Respiratory rate 14 /min Bib Laura [facility] 05-11-2023 09:40-0400 Diastolic blood pressure 77 mm[Hg] Stpehenie Barrios [facility] 05-11-2023 09:40-0400 Heart rate 68 /min Stepheniejakob Barrios [facility] 05-11-2023 09:40-0400 Mean blood pressure 95 mm[Hg] Stepheniejakob Barrios [facility] 05-11-2023 09:40-0400 Respiratory rate 14 /min Stepheniejakob Barrios [facility] 05-11-2023 09:40-0400 Systolic blood pressure 130 mm[Hg] Stepheniejakob Barrios [facility] 05-01-2023 14:39-0400 Heart rate 61 /min Bibrubi Sanchez [facility] 05-01-2023 14:39-0400 SaO2% (BldA) [Mass fraction] 96 % Bib Laura [facility] 05-01-2023 14:39-0400 Diastolic blood pressure 80 mm[Hg] Bib Laura [facility] 05-01-2023 14:39-0400 Mean blood pressure 107 mm[Hg] Ibb Laura [facility] 05-01-2023 14:39-0400 Systolic blood pressure 160 mm[Hg] Bib Laura [facility] 05-01-2023 14:39-0400 Respiratory rate 14 /min Bib Laura [facility] 05-01-2023 14:34-0400 Diastolic blood pressure 75 mm[Hg] Bib Laura [facility] 05-01-2023 14:34-0400 Heart rate 63 /min Bib Laura [facility] 05-01-2023 14:34-0400 Respiratory rate 14 /min Bib Laura [facility] 05-01-2023 14:34-0400 SaO2% (BldA) [Mass fraction] 98 % Bib Laura [facility] 05-01-2023 14:34-0400 Systolic blood pressure 149 mm[Hg] Bib Laura [facility] 05-01-2023 14:04-0400 Heart rate 60 /min Bib Laura [facility] 05-01-2023 14:04-0400 SaO2% (BldA) [Mass fraction] 94 % Bib Laura [facility] 05-01-2023 14:04-0400 Diastolic blood pressure 78 mm[Hg] Bib Laura [facility] 05-01-2023 14:04-0400 Mean blood pressure 103 mm[Hg] Bib Laura [facility] 05-01-2023 14:04-0400 Systolic blood pressure 152 mm[Hg] Bib Laura [facility] 05-01-2023 14:04-0400 Body temperature 97.34 [degF] Bib Sanchez [facility] 05-01-2023 14:04-0400 Respiratory rate 14 /min Bib Sanchez [facility] 04-30-2023 09:00-0400 Body height 193.04 cm Devang Ball Other [facility] [employer] Other 04-30-2023 09:00-0400 Body mass index (BMI) [Ratio] 28.36 kg/m2 Devang Ball Other [facility] [employer] Other 04-30-2023 09:00-0400 Body weight 105.69 kg Devang Ball Other [facility] [facility] [employer] Other 04-30-2023 09:00-0400 Diastolic blood pressure 83 mm[Hg] Devang Ball Other [employer] Other 04-30-2023 09:00-0400 Respiratory rate 12 /min Devang Ball Other [employer] Other 04-30-2023 09:00-0400 Systolic blood pressure 135 mm[Hg] Devang Ball Other [employer] Other 03-19-2023 08:45-0400 Diastolic blood pressure 89 mm[Hg] Stephenie [employer] [facility] 03-19-2023 08:45-0400 Heart rate 67 /min [employer]) [facility] 03-19-2023 08:45-0400 Mean blood pressure 106 mm[Hg] Stephenie [employer] [facility] 03-19-2023 08:45-0400 Respiratory rate 20 /min [employer] [facility] 03-19-2023 08:45-0400 Systolic blood pressure 140 mm[Hg] Stephenie Barrios [facility] 03-12-2023 09:15-0400 Heart rate 65 /min Bib Laura [facility] 03-12-2023 09:15-0400 SaO2% (BldA) [Mass fraction] 96 % Bib Laura [facility] 03-12-2023 09:15-0400 Diastolic blood pressure 92 mm[Hg] Bib Laura [facility] 03-12-2023 09:15-0400 Mean blood pressure 114 mm[Hg] Bib Laura [facility] 03-12-2023 09:15-0400 Systolic blood pressure 159 mm[Hg] Bib Laura [facility] 03-12-2023 09:15-0400 Respiratory rate 16 /min Bib Laura [facility] 03-12-2023 09:11-0400 Diastolic blood pressure 67 mm[Hg] Bib Laura [facility] 03-12-2023 09:11-0400 Heart rate 70 /min Bib Laura [facility] 03-12-2023 09:11-0400 Respiratory rate 14 /min Bib Laura [facility] 03-12-2023 09:11-0400 SaO2% (BldA) [Mass fraction] 94 % Bib Laura [facility] 03-12-2023 09:11-0400 Systolic blood pressure 160 mm[Hg] Bib Laura [facility] 03-12-2023 08:09-0400 Heart rate 71 /min Bib Sanchez [facility] 03-12-2023 08:09-0400 SaO2% (BldA) [Mass fraction] 95 % Bib Sanchez [facility] 03-12-2023 08:09-0400 Diastolic blood pressure 69 mm[Hg] Bib Sanchez [facility] 03-12-2023 08:09-0400 Mean blood pressure 102 mm[Hg] Bib Sanchez [facility] 03-12-2023 08:09-0400 Systolic blood pressure 168 mm[Hg] Bib Sanchez [facility] 03-12-2023 08:09-0400 Body temperature 97.52 [degF] Bib Sanchez [facility] 03-12-2023 08:09-0400 Respiratory rate 12 /min Bib Sanchez [facility] 03-08-2023 09:32-0400 Body height 193.04 cm Devang Bustillo Ball Work Phone: [facility] [employer] DO Work Phone: 03-08-2023 09:32-0400 Body mass index (BMI) [Ratio] 29.21 kg/m2 Devang Bustillo Ball Work Phone: [facility] [employer] DO Work Phone: 03-08-2023 09:32-0400 Body surface area Derived from formula 2.39 m2 Devang Bustillo Ball Work Phone: [facility] [employer] DO Work Phone: 03-08-2023 09:32-0400 Body weight 108.86 kg Devang Bustillo Ball Work Phone: [facility] [employer] DO Work Phone: 03-08-2023 09:32-0400 Diastolic blood pressure 84 mm[Hg] Devang E Ball Work Phone: [facility] [employer] DO Work Phone: 03-08-2023 09:32-0400 Heart rate 68 /min Devang E Ball Work Phone: [facility] [employer] DO Work Phone: 03-08-2023 09:32-0400 Systolic blood pressure 132 mm[Hg] Devang E Ball Work Phone: [facility] [employer] DO Work Phone: 02-21-2023 14:00-0400 Body height 193.04 cm Allison Blades Other [employer] Other 02-21-2023 14:00-0400 Body mass index (BMI) [Ratio] 30.43 kg/m2 Allison Blades Other [employer] Other 02-21-2023 14:00-0400 Body weight 113.4 kg Allison Blades Other [employer] Other 02-21-2023 14:00-0400 Diastolic blood pressure 66 mm[Hg] Allison Blades Other [employer] Other 02-21-2023 14:00-0400 Systolic blood pressure 110 mm[Hg] Allison Blades Other [employer] Other 01-01-2023 10:00-0500 Body height 190.5 cm LUDWIN LEMON Other [facility] Other 02-27-2023 10:00-0500 Body mass index (BMI) [Ratio] 30.62 kg/m2 LUDWIN VÁSQUEZCETIC Other [facility] [email or web address] Other 01-01-2023 10:00-0500 Body weight 111.13 kg LUDWIN VUCETIC Other [facility] [email or web address] Other 01-01-2023 10:00-0500 Diastolic blood pressure 66 mm[Hg] LUDWIN VÁSQUEZCETIC Other [facility] [email or web address] Other 01-01-2023 10:00-0500 Respiratory rate 16 /min LUDWIN VÁSQUEZCETIC Other [facility] [email or web address] Other 01-01-2023 10:00-0500 Systolic blood pressure 118 mm[Hg] LUDWIN VÁSQUEZCETIC Other [facility] [employer] Other 11-29-2022 10:30-0500 Body height 193.04 cm Allison Blades Other [employer] Other 11-29-2022 10:30-0500 Body mass index (BMI) [Ratio] 29.84 kg/m2 Allison Blades Other [employer] Other 11-29-2022 10:30-0500 Body weight 111.22 kg Allison Blades Other [employer] Other 11-29-2022 10:30-0500 Diastolic blood pressure 84 mm[Hg] Allison Blades Other [employer] Other 11-29-2022 10:30-0500 Systolic blood pressure 138 mm[Hg] Allison Blades Other [employer] Other 11-28-2022 09:00-0500 Blood Pressure Location ALANIS WOOD [facility] 11-28-2022 09:00-0500 Diastolic blood pressure 84 mm[Hg] ALANIS NINA [facility] 11-28-2022 09:00-0500 Heart rate 68 /min ALANIS WOOD [facility] 11-28-2022 09:00-0500 Respiratory rate 16 /min ALANIS WOOD [facility] 11-28-2022 09:00-0500 Systolic blood pressure 121 mm[Hg] ALANIS WOOD [facility] 09-26-2022 09:33-0500 Body height 193.04 cm Devang E Ball Work Phone: QR-Juigvnumba-Smcsqa [place] 250 DO Work Phone: 09-26-2022 09:33-0500 Body mass index (BMI) [Ratio] 29.7 kg/m2 Devang E Ball Work Phone: PA-Jlmnaczfjs-Qqrluy [place] 250 DO Work Phone: 09-26-2022 09:33-0500 Body surface area Derived from formula 2.41 m2 Devang E Ball Work Phone: QP-Xwoniriqhz-Pyaywz [place] 250 DO Work Phone: 09-26-2022 09:33-0500 Body weight 110.68 kg Devang E Ball Work Phone: EL-Gdhmekshjg-Vyuudb [place] 250 DO Work Phone: 09-26-2022 09:33-0500 Diastolic blood pressure 78 mm[Hg] Devang E Ball Work Phone: VD-Yezbghfhwx-Brjoaa [place] 250 DO Work Phone: 09-26-2022 09:33-0500 Heart rate 76 /min Devang E Ball Work Phone: AG-Uhsblgwqri-Fxycaa [place] 250 DO Work Phone: 09-26-2022 09:33-0500 Systolic blood pressure 120 mm[Hg] Devang E Ball Work Phone: EG-Xojkflcwzk-Uvviot [place] 250 DO Work Phone: 03-28-2022 13:43-0400 Body height 193.04 cm Devang E Ball Work Phone: [facility] 250 DO Work Phone: 03-28-2022 13:43-0400 Body mass index (BMI) [Ratio] 28.48 kg/m2 Devang E Ball Work Phone: [facility] 250 DO Work Phone: 03-28-2022 13:43-0400 Body surface area Derived from formula 2.37 m2 Devang E Ball Work Phone: [facility] 250 DO Work Phone: 03-28-2022 13:43-0400 Body weight 106.14 kg Devang E Ball Work Phone: [facility] 250 DO Work Phone: 03-28-2022 13:43-0400 Diastolic blood pressure 60 mm[Hg] Devang E Ball Work Phone: [facility] 250 DO Work Phone: 03-28-2022 13:43-0400 Heart rate 88 /min Devang E Ball Work Phone: [facility] 250 DO Work Phone: 03-28-2022 13:43-0400 Systolic blood pressure 100 mm[Hg] Devang E Ball Work Phone: [facility] 250 DO Work Phone: Encounters Encounter Date Encounter Type Care Provider Facility Start: 01-28-2025 End: 01-28-2025 Office outpatient visit 25 minutes Marisol Connors MD Work Phone: [facility] Comment on above: Pre-operative cardio vascular examination (Primary Dx); Arteriosclerosis of coronary artery; Essential hypertension; Dyslipidemia; Status post coronary angioplasty; Former smoker; BMI 34.0-34.9,adult; Obesity, Class I, BMI 30-34.9 Start: 01-28-2025 End: 01-28-2025 Patient encounter status Marisol Connors MD Work Phone: [facility] Work Phone: Start: 01-28-2025 End: 01-28-2025 ambulatory [facility] Ambulatory Start: 01-28-2025 End: 01-28-2025 Encounter for preprocedural cardiovascular examination [facility] Ambulatory Start: 01-26-2025 ambulatory Anita Schmid MD Fa cility:[facility] Start: 11-12-2024 End: 11-12-2024 Hector Garay DO Work Phone: [facility] Start: 11-12-2024 End: 11-12-2024 Hector Garay DO Work Phone: [facility] Start: 11-12-2024 End: 11-12-2024 ambulatory ANDREW CRUZ Not Available Start: 11-12-2024 End: 11-12-2024 Office outpatient visit 25 minutes Jr. Andrew Garay DO Work Phone: [facility] Comment on above: Swelling of joint of right knee (Primary Dx); Right knee pain, unspecified chronicity Start: 11-12-2024 End: 11-12-2024 ambulatory ANDREW CRUZ Not Available Start: 09-24-2024 End: 09-24-2024 ambulatory [facility] Facility:[facility] Start: 09-24-2024 End: 09-24-2024 Patient encounter procedure Bert Huang [facility] Start: 08-27-2024 End: 08-27-2024 ambulatory DEVANG HALL Facility:[facility] Start: 08-27-2024 End: 08-27-2024 Patient encounter procedure Stephenie Barrios [facility] Start: 08-19-2024 End: 08-19-2024 ambulatory Bert Huang Facility:[facility] Start: 08-19-2024 End: 08-19-2024 Pain Management Bert Huang [facility] Start: 08-14-2024 End: 08-14-2024 Bamboo [...] Start: 08-12-2024 End: 08-12-2024 ambulatory Bert Huang Facility:[facility] Start: 08-12-2024 End: 08-12-2024 Patient encounter procedure Bert Huang [facility] Start: 08-11-2024 End: 08-12-2024 ambulatory Jenny Alvarenga PEDIATRIC NURSE PRACTITIONER [facility] Comment on above: Acute pain of left k nee (Primary Dx); Poor balance; History of fall; Difficulty walking; Leg weakness, bilateral; Foot drop, right foot; History of falling; Left hip impingement syndrome; Right hip impingement syndrome Start: 08-11-2024 End: 08-11-2024 Bamboo flowsheet Jenny Alvarenga PEDIATRIC NURSE PRACTITIONER [facility] Start: 08-11-2024 End: 08-11-2024 Bamboo flowsheet Jenny Alvarenga PEDIATRIC NURSE PRACTITIONER [facility] Start: 08-07-2024 End: 08-07-2024 Bamboo flowsheet Jenny Alvarenga PEDIATRIC NURSE PRACTITIONER [facility] Start: 08-07-2024 End: 08-07-2024 Bamboo flowsheet Jenny Alvarenga PEDIATRIC NURSE PRACTITIONER [facility] Start: 08-07-2024 End: 08-07-2024 ambulatory Jenny Alvarenga PEDIATRIC NURSE PRACTITIONER [facility] Comment on above: Acute pain of left k nee (Primary Dx); Poor balance; History of fall; Difficulty walking; Leg weakness, bilateral; Foot drop, right foot; History of falling; Left hip impingement syndrome; Right hip impingement syndrome Start: 08-05-2024 End: 08-05-2024 Bamboo flowsheet Jenny Alvarenga PEDIATRIC NURSE PRACTITIONER [facility] Start: 08-05-2024 End: 08-05-2024 Bamboo flowsheet Jenny Alvarenga PEDIATRIC NURSE PRACTITIONER [facility] Start: 08-05-2024 End: 08-05-2024 ambulatory Jenny Alvarenga PEDIATRIC NURSE PRACTITIONER [facility] Comment on above: Acute pain of left k nee (Primary Dx); Poor balance; History of fall; Difficulty walking; Leg weakness, bilateral; Foot drop, right foot; History of falling; Left hip impingement syndrome; Right hip impingement syndrome Start: 07-31-2024 End: 07-31-2024 Bamboo flowsheet Tita Fulton PEDIATRIC NURSE PRACTITIONER [facility] Start: 07-31-2024 End: 07-31-2024 Bamboo flowsheet Tita Gaspary PEDIATRIC NURSE PRACTITIONER [facility] Start: 07-31-2024 End: 07-31-2024 ambulatory Tita Fulton PEDIATRIC NURSE PRACTITIONER [facility] Comment on above: Acute pain of left k nee (Primary Dx); Poor balance; History of fall; Difficulty walking; Leg weakness, bilateral; Foot drop, right foot; History of falling Start: 07-29-2024 End: 07-29-2024 Bamboo flowsheet Jenny Buiink PEDIATRIC NURSE PRACTITIONER [facility] Start: 07-29-2024 End: 07-29-2024 Bamboo flowsheet Jenny Buiink PEDIATRIC NURSE PRACTITIONER [facility] Start: 07-29-2024 End: 07-29-2024 ambulatory Jenny Buiink PEDIATRIC NURSE PRACTITIONER [facility] Comment on above: Acute pain of left k nee (Primary Dx); Poor balance; History of fall; Difficulty walking; Leg weakness, bilateral; Foot drop, right foot; History of falling; Left hip impingement syndrome; Right hip impingement syndrome Start: 07-24-2024 End: 07-24-2024 Bamboo flowsheet Jenny Brink PEDIATRIC NURSE PRACTITIONER [facility] Start: 07-24-2024 End: 07-24-2024 Bamboo flowsheet Jenny Brink PEDIATRIC NURSE PRACTITIONER [facility] Start: 07-24-2024 End: 07-24-2024 ambulatory Jenny Buiink PEDIATRIC NURSE PRACTITIONER [facility] Comment on above: Acute pain of left k nee (Primary Dx); History of fall; Poor balance; Difficulty walking; Leg weakness, bilateral; Foot drop, right foot; History of falling; Left hip impingement syndrome; Right hip impingement syndrome Start: 07-22-2024 End: 07-22-2024 Bamboo flowsheet Jenny Buiink PEDIATRIC NURSE PRACTITIONER [facility] Start: 07-22-2024 End: 07-22-2024 Bamboo flowsheet Jenny Buiink PEDIATRIC NURSE PRACTITIONER [facility] Start: 07-22-2024 End: 07-22-2024 ambulatory Jenny Buiink PEDIATRIC NURSE PRACTITIONER [facility] Comment on above: Acute pain of left k nee (Primary Dx); History of fall; Poor balance; Difficulty walking; Leg weakness, bilateral; Foot drop, right foot; History of falling; Left hip impingement syndrome; Right hip impingement syndrome Start: 07-17-2024 End: 07-17-2024 Bamboo flowsheet Patti Araizaall PEDIATRIC NURSE PRACTITIONER [facility] Start: 07-17-2024 End: 07-17-2024 Bamboo flowsheet Patti Tattersall PEDIATRIC NURSE PRACTITIONER [facility] Start: 07-17-2024 End: 07-17-2024 ambulatory Patti Guzmantersall PEDIATRIC NURSE PRACTITIONER [facility] Comment on above: Acute pain of left k nee (Primary Dx); History of fall; Poor balance; Leg weakness, bilateral Start: 07-15-2024 End: 07-15-2024 Bamboo flowsheet Ramírez Paez DO [facility] [employer] [facility] Start: 07-15-2024 End: 07-15-2024 Bamboo flowsheet Ramírez Paez DO Work Phone: [facility] Start: 07-15-2024 End: 07-15-2024 Office outpatient new 45 minutes Ramírez Paez DO [facility] Comment on above: Multilevel degenerat michelle disc disease (Primary Dx); Hypophonia Start: 07-15-2024 End: 07-15-2024 ambulatory Jenny Brink PEDIATRIC NURSE PRACTITIONER [facility] Comment on above: Acute pain of left k nee (Primary Dx); History of fall; Poor balance; Leg weakness, bilateral; Difficulty walking; Foot drop, right foot; History of falling; Left hip impingement syndrome; Right hip impingement syndrome Start: 07-10-2024 End: 07-10-2024 Bamboo flowsheet Jenny Brink PEDIATRIC NURSE PRACTITIONER [facility] Start: 07-10-2024 End: 07-10-2024 Bamboo flowsheet Jenny Brink PEDIATRIC NURSE PRACTITIONER [facility] Start: 07-10-2024 End: 07-10-2024 ambulatory Jenny Brink PEDIATRIC NURSE PRACTITIONER [facility] Comment on above: Acute pain of left k nee (Primary Dx); History of fall; Poor balance; Leg weakness, bilateral; Difficulty walking; Foot drop, right foot; History of falling; Left hip impingement syndrome; Right hip impingement syndrome Start: 07-08-2024 End: 07-08-2024 Bamboo flowsheet Jenny Brink PEDIATRIC NURSE PRACTITIONER [facility] Start: 07-08-2024 End: 07-08-2024 Bamboo flowsheet Jenny Brink PEDIATRIC NURSE PRACTITIONER [facility] Start: 07-08-2024 End: 07-08-2024 Telephone encounter Andrew Shlomo Garay DO Work Phone: [facility] Comment on above: Dentist Start: 07-08-2024 End: 07-08-2024 ambulatory Jenny Alvarenga PEDIATRIC NURSE PRACTITIONER [facility] Comment on above: Acute pain of left k nee (Primary Dx); History of fall; Poor balance; Foot drop, right foot; Difficulty walking; Leg weakness, bilateral; History of falling; Left hip impingement syndrome; Right hip impingement syndrome Start: 07-03-2024 End: 07-03-2024 Bamboo flowsheet Patti Miranda PEDIATRIC NURSE PRACTITIONER [facility] Start: 07-03-2024 End: 07-03-2024 Bamboo flowsheet Patti Miranda PEDIATRIC NURSE PRACTITIONER [facility] Start: 07-03-2024 End: 07-03-2024 ambulatory Patti Miranda PEDIATRIC NURSE PRACTITIONER [facility] Comment on above: Acute pain of left k nee (Primary Dx); History of fall; Poor balance; Foot drop, right foot Start: 07-02-2024 End: 07-02-2024 ambulatory Stephenie Barrios Facility:[facility] Start: 07-02-2024 End: 07-02-2024 Pain Management Stephenie Barrios [facility] Start: 06-24-2024 End: 06-24-2024 ambulatory Bert Huang Facility:[facility] Start: 06-24-2024 End: 06-24-2024 Pain Management Bret Huang [facility] Start: 06-23-2024 End: 06-23-2024 ambulatory MERLIN GERBER Not Available Start: 06-19-2024 End: 06-19-2024 ambulatory JENNY ALVARENGA Not Available Start: 06-17-2024 End: 06-17-2024 Patient encounter procedure Bert Huang [facility] Start: 06-17-2024 End: 06-17-2024 ambulatory Bert Huang Facility:[facility] Start: 06-17-2024 End: 06-17-2024 Pain Management Bert Huang [facility] Start: 06-17-2024 End: 06-17-2024 ambulatory JENNY ALVARENGA Not Available Start: 06-13-2024 End: 06-13-2024 ambulatory [facility] Work Phone: Start: 06-13-2024 End: 06-13-2024 Patient encounter procedure [facility] Work Phone: Start: 06-12-2024 End: 06-12-2024 ambulatory ALANIS Bustillo NINA Facility:[facility] Start: 06-12-2024 End: 06-12-2024 Patient encounter procedure ALANIS WOOD [facility] Start: 06-10-2024 End: 06-10-2024 ambulatory JENNY ALVARENGA [...] 25 minutes Marisol Connors MD Work Phone: [facility] Comment on above: Arteriosclerosis of coronary artery (Primary Dx); Essential hypertension; Dyslipidemia; Status post coronary angioplasty; BMI 31.0-31.9,adult; Former smoker; At risk for falls; Idiopathic peripheral neuropathy Start: 05-22-2024 End: 05-22-2024 ambulatory MARISOL CONNORS [facility] Ambulatory Start: 05-13-2024 End: 05-13-2024 ambulatory FATOUMATA MONTES Not Available Start: 05-07-2024 End: 05-07-2024 ambulatory [facility] Work Phone: Start: 05-07-2024 End: 05-07-2024 Patient encounter procedure [facility] Work Phone: Start: 05-02-2024 End: 05-02-2024 ambulatory DEVANG HALL Facility:[facility] Start: 05-02-2024 End: 05-02-2024 Pain Management Stepheniejakob Barrios [facility] Start: 04-29-2024 Non-patient / Non-visit [facility] Work Phone: Start: 04-28-2024 End: 04-28-2024 ambulatory [facility] Work Phone: Start: 04-28-2024 End: 04-28-2024 Patient encounter procedure [facility] Work Phone: Start: 03-14-2024 End: 03-14-2024 ambulatory PA-C Stephenie Barrios Facility:[facility] Start: 03-14-2024 End: 03-14-2024 Pain Management Stepheniejakob Barrios [facility] Start: 02-25-2024 End: 02-25-2024 ambulatory ANDREW CRUZ Not Available Start: 01-25-2024 End: 01-25-2024 ambulatory PA-C Stephenie Barrios Facility:[facility] Start: 01-25-2024 End: 01-25-2024 Pain Management Stephenie Barrios [facility] Start: 01-18-2024 End: 01-18-2024 ambulatory [facility] Work Phone: Start: 01-18-2024 End: 01-18-2024 Patient encounter procedure [facility] Work Phone: Start: 01-09-2024 End: 01-09-2024 ambulatory Bert Huang Facility:[facility] Start: 01-09-2024 End: 01-09-2024 Pain Management Bert Huang [facility] Start: 12-31-2023 End: 12-31-2023 ambulatory [facility] Work Phone: Start: 12-31-2023 End: 12-31-2023 Patient encounter procedure [facility] Work Phone: Start: 12-24-2023 Non-patient / Non-visit [facility] Physician [facility] Professional [employer] Work Phone: Start: 12-14-2023 End: 12-14-2023 ambulatory Homero XAVIER Facility:[facility] Start: 12-14-2023 End: 12-14-2023 Patient encounter procedure Homero XAVIER [facility] Start: 12-11-2023 End: 12-11-2023 ambulatory ALANIS WOOD Facility:[facility] Start: 12-10-2023 End: 12-10-2023 ambulatory PA-C Stephenie Barrios Facility:[facility] Start: 12-10-2023 End: 12-10-2023 Pain Management Stephenie Barrios [facility] Start: 11-28-2023 End: 11-28-2023 ambulatory Devang Hall Other [facility] [employer] Other Start: 11-28-2023 Telephone encounter Devang Hall [facility] Start: 11-14-2023 End: 11-14-2023 Office outpatient visit 25 minutes Marisol Connors MD Work Phone: [facility] Comment on above: Arteriosclerosis of coronary artery (Primary Dx); Status post coronary angioplasty; Dyslipidemia; Essential hypertension; Obesity (BMI 30.0-34.9); At risk for falls Start: 11-09-2023 End: 11-09-2023 ambulatory PA-C Stephenie Barrios Facility:[facility] Start: 11-09-2023 End: 11-09-2023 Pain Management Stephenie Barrios [facility] Start: 10-23-2023 End: 10-23-2023 ambulatory Devang Rafael Other [facility] [employer] Other Start: 10-23-2023 Office outpatient vi sit 25 minutes Devang Rafael [facility] Start: 10-23-2023 End: 10-23-2023 Patient encounter procedure [facility] Work Phone: Start: 10-08-2023 End: 10-08-2023 ambulatory Bib D Laura Facility:[facility] Start: 10-08-2023 End: 10-08-2023 Pain Management Bib D Laura [facility] Start: 09-14-2023 End: 09-14-2023 ambulatory DEVANG HALL Facility:[facility] Start: 09-14-2023 End: 09-14-2023 Pain Management Stephenie Barrios [facility] Start: 09-04-2023 End: 09-04-2023 ambulatory Bib D Laura Facility:[facility] Start: 08-28-2023 End: 08-28-2023 ambulatory Bib D Laura Facility:[facility] Start: 08-07-2023 End: 08-07-2023 ambulatory Bib D Laura Facility:[facility] Start: 08-07-2023 End: 08-07-2023 Pain Management Bib D Laura [facility] Start: 05-11-2023 End: 05-11-2023 Pain Management Stephenie Barrios [facility] Start: 05-03-2023 End: 05-03-2023 ambulatory Devang Hall Other [facility] [employer] Other Start: 05-03-2023 Telephone encounter Devang [place] [facility] Start: 05-01-2023 End: 05-01-2023 ambulatory Devang Hall Other [employer] Other Start: 05-01-2023 Telephone encounter Devang Hall [facility] Start: 05-01-2023 End: 05-01-2023 Pain Management Bib Sanchez [facility] Start: 04-30-2023 End: 04-30-2023 ambulatory Devang Hall Other [facility] [employer] Other Start: 04-30-2023 Patient encounter procedure Devang Hall [facility] Start: 03-19-2023 End: 03-19-2023 Pain Management Stephenie Barrios [facility] Start: 03-14-2023 End: 03-15-[address] MARISOL CONNORS Facility:H1 Start: 03-12-2023 End: 03-13-[address] MARISOL CONNORS Facility:H1 Start: 03-12-2023 End: 03-12-2023 Pain Management Bib Sanchez [facility] Start: 03-08-2023 FUV, Provider: Marisol Connors, Status: Pen, Time: 9:50 AM Devang Hall Work Phone: [facility] [place] 250 DO Work Phone: Start: 03-08-2023 Office outpatient vi sit 25 minutes Devang Hall Work Phone: [facility] [place] 250 DO Work Phone: Start: 03-08-2023 ambulatory Marisol Connors Facility : Start: 03-06-2023 Rx Renewal Devang collins Work Phone: [facility] 250 DO Work Phone: Start: 02-21-2023 End: 02-21-2023 ambulatory Allison Blades Other [facility] [employer] Other Start: 02-21-2023 Office outpatient vi sit [address] [facility] Start: 01-10-2023 End: 03-02-[address] DOCTOR PLUMMER Facility:H1 Start: 01-01-2023 End: 01-01-2023 ambulatory LUDWIN LEMON Other [facility] Other Start: 01-01-2023 Office outpatient ne w 45 minutes [facility] PPN Start: 11-29-2022 End: 11-29-2022 ambulatory Allison Blades Other [facility] [employer] Other Start: 11-29-2022 Office outpatient ne w [address] [facility] Start: 11-29-2022 Telephone encounter Allison Kenyon F [facility] [employer] Room Supervisor Start: 11-28-2022 End: 11-28-2022 Patient encounter procedure ALANIS WOOD [facility] Start: 11-15-2022 End: 11-15-2022 ambulatory Devang Hall Other [facility] [employer] Other Start: 11-15-2022 Telephone encounter Devang Hall [facility] Start: 11-14-2022 End: 11-15-[address] DEVANG HALL Facility:H1 Start: 10-11-2022 Rx Renewal Devang collins Work Phone: [facility] 250 DO Work Phone: Start: 09-26-2022 Office outpatient vi sit 25 minutes Devang Hall Work Phone: [facility] 250 DO Work Phone: Start: 09-26-2022 ambulatory Marisol Connors Facility : Start: 05-30-2022 End: 05-30-2022 Patient encounter procedure Goldy Alberto Jr. [facility] Start: 05-11-2022 End: 05-11-2022 Patient encounter procedure Goldy Alberto Jr. [facility] Start: 05-09-2022 End: 05-09-2022 Patient encounter procedure Goldy Alberto Jr. [facility] Start: 04-25-2022 End: 04-25-2022 Emergency department patient visit Dr. Devang Hall Facility:[facility] Start: 04-07-2022 End: 04-08-[address] MARISOL CONNORS Facility: Start: 03-28-2022 Office outpatient vi sit 25 minutes Devang Hall Work Phone: [facility] 250 DO Work Phone: Start: 03-28-2022 ambulatory Marisol Connors Facility : Start: 03-06-2022 Rx Renewal Marisol Connors MD Work Phone: [facility] 250 DO Work Phone: Start: 09-26-2021 Rx Renewal Marisol Connors MD Work Phone: [facility] 250 DO Work Phone: Start: 09-22-2021 Rx Renewal Marisol Connors MD Work Phone: [facility] 250 DO Work Phone: Start: 04-11-2018 End: 04-13-2018 Evaluation and management of inpatient DEVANG HALL [facility] Start: 04-10-2018 Ambulatory [facility] Start: 04-10-2018 End: 04-15-2018 Ambulatory ANNMARIE Sandra SMITA [facility] Procedures Date Procedure Procedure Detail Performing Clinician Start: 01-28-2025 Ecg routine ecg w/le ast 12 lds w/i&r Marisol Connors MD Work Phone: Start: 11-12-2024 Radiologic examinati on knee 1/2 views Jr. Andrew Garay DO Work Phone: Start: 08-19-2024 Local anesthetic sac ral epidural block [employer] Comment on above: 60% relief Start: 06-24-2024 Epidural insertion o f temporary spinal cord stimulator electrode [employer] Comment on above: 60% relief Start: 01-09-2024 Injection of sacroil iac joint using fluoroscopic guidance [employer]) Comment on above: 90% relief for 4 hrs Start: 10-08-2023 Radiofrequency ablat ion of nerve root of lumbar spine using fluoroscopic guidance [employer]) Comment on above: Bilateral L3/4+L4/5- no relief Start: 09-04-2023 Injection of facet j oint using fluoroscopic guidance [employer]) Comment on above: Bilateral L3/4, L4/5 MBB-80% relief for 1 day Start: 08-07-2023 Injection of facet j oint using fluoroscopic guidance [employer]) Comment on above: BL L3/L4 L4/L5 MBB 8 5% Relief x 4 hours Start: 05-29-2023 Local anesthetic sac ral epidural block Bib Sanchez Comment on above: Caudal john 50% relie f Start: 05-01-2023 Injection of facet j oint using fluoroscopic guidance [employer]) Comment on above: bilateral 75% relief for 2 hours Start: 03-12-2023 Injection of facet j oint using fluoroscopic guidance [employer]) Comment on above: pt changed amt of [...] Alberto Jr. Start: 04-28-2020 Transurethral prostatectomy Goldy Remy Cruz Start: 12-08-2019 Cystourethroscopy wi th dilation of [...] O Start: 04-12-2018 PT EVAL AND TREAT ANNMAIRE YO O Start: 04-12-2018 ACTIVITY TOLERATED B [...] ADVANCE DIET TOLE RATED (NURSING COMMUNICATION) ANNMARIE SMIAT Start: 04-11-2018 ELEVATE HOB ANNMARIE SMITA Start: [...] Alberto Jr. Start: 07-12-2016 Transurethral prostatectomy Goldy Albreto Jr. Start: 06-23-2016 Cystoscopy Goldy flanagan Jr. [...] Connors MD Work Phone: Cataract surgery Devang Iwona Hall Work Phone: Extraction of cataract Memo Alberto Jr. Hernia repair Marisol Connors MD Work Phone: History of placement of stent for coronary artery disease H/O heart artery stent Procedure on back Marisol muñoz MD Work Phone: Release of trigger finger Do abdullahi Alberto Jr. Tonsillectomy Marisol Connors MD Work Phone: Plan of Treatment Date Care Activity Detail Author Start: 05-02-2034 DTaP/Tdap/Td Vaccine s (3 - Td or Tdap) DTaP/Tdap/Td Vaccines (3 - Td or Tdap) [facility] Start: 11-08-2030 DTaP/Tdap/Td Vaccine s (2 - Tdap) DTaP/Tdap/Td Vaccines (2 - Tdap) [facility] Start: 11-11-2025 End: 11-11-2025 Patient encounter procedure 11/11/2025 10:15 AM EST Office Visit [facility] [address] [place] [address] Jr. Andrew Garay DO [address] [facility] [address] [place] [address] [facility] Start: 06-17-2025 End: 06-17-2025 Patient encounter procedure 06/17/2025 9:30 AM EDT Office Visit [facility] [address] [place] [id number] Marisol Connors MD [address] [place] [address] [facility] Start: 04-29-2025 Medicare Annual Well ness Visit Medicare Annual Wellness Visit (AWV) [facility] Start: 11-12-2024 End: 11-12-2024 Patient encounter procedure [facility] Comment on above: Arrived Start: 08-14-2024 [...] CI PT [address] [place] [address] Jenny Alvarenga PEDIATRIC NURSE PRACTITIONER [facility] Start: 08-05-2024 End: 08-05-2024 ambulatory 08/05/2024 10:00 AM EDT Treatment [facility] [address] [place] [address] Jenny Alvarenga PEDIATRIC NURSE PRACTITIONER [facility] Start: 07-31-2024 End: 07-31-2024 ambulatory 07/31/2024 11:00 AM EDT Treatment [facility] [address] [place] [address] Tita Fulton PEDIATRIC NURSE PRACTITIONER [facility] Start: 07-29-2024 End: 07-29-2024 ambulatory 07/29/2024 10:00 AM EDT Treatment [facility] [address] [place] [address] Jenny Alvarenga PTA [facility] Start: 07-24-2024 End: 07-24-2024 ambulatory 07/24/2024 10:00 AM EDT Treatment [facility] [address] [facility] [address] [place] [address] Jenny Alvarenga PTA [facility] Start: 07-22-2024 End: 07-22-2024 [...] Start: 07-15-2024 End: 07-15-2024 Patient encounter procedure [facility] [address] Comment on above: Arrived Start: 07-10-2024 End: 07-10-2024 ambulatory 07/10/2024 9:00 AM EDT Treatment [facility] [address] [facility] [address] [place] [address] Jenny Alvarenga PTA [facility] Start: 07-08-2024 End: 07-08-2024 ambulatory [facility] Comment on above: Arrived Start: 07-06-2024 COVID-19 Vaccine ( season) COVID-19 Vaccine ( season) [facility] Start: 07-06-2024 Influenza vaccination Influenza Vacc ine (#1) [facility] Start: 05-22-2024 End: 05-22-2024 Patient encounter procedure 05/22/2024 9:50 AM EDT Office Visit [facility] [address] [facility] [address] [place] [address] Marisol Connors MD [address] [facility] [address] [place] [address] [facility] Start: 09-18-2023 FUV, Provider: Marisol Connors, Status: Pen, Time: 9:50 AM FUV, Provider: Marisol Connors, Status: Pen, Time: 9:[address] [facility] DO Work Phone: Start: 07-06-2023 COVID-19 Vaccine ( season) COVID-19 Vaccine ( season) [facility] Start: 03-08-2023 FUV, Provider: Marisol Connors, Status: Pen, Time: 9:50 AM FUV, Provider: Marisol Connors, Status: Pen, Time: 9:50 AM [facility] [place] 250 DO Work Phone: Start: 10-22-2022 COVID-19 Vaccine (4 - Pfizer series) COVID-19 Vaccine (4 - Pfizer series) [facility] Start: 09-26-2022 FUV, Provider: Marisol Connors, Status: Pen, Time: 9:40 AM FUV, Provider: Marisol Connors, Status: Pen, Time: 9:[address] [facility] Work Phone: Start: 03-28-2022 FUV, Provider: Marisol Connors, Status: Pen, Time: 1:20 PM FUV, Provider: Marisol Connors, Status: Pen, Time: 1:[address] [facility] DO Work Phone: Start: 12-15-2021 FUV, Provider: Marisol Connors, Status: Pen, Time: 10:30 AM FUV, Provider: Marisol Connors, Status: Pen, Time: 10:[address] [facility] DO Work Phone: Start: 2021 RSV High Risk: (Elde rly (60+) or Population) (1 - 1-dose 75+ series) RSV High Risk: (Elderly (60+) or Population) (1 - 1-dose 75+ series) [facility] Start: 07-27-2021 Diabetes mellitus screening Diabetes Screening [facility] Start: 2006 RSV patient s and/or patients aged 60+ years (1 - 1-dose 60+ series) RSV patients and/or patients aged 60+ years (1 - 1-dose 60+ series) [facility] Start: 1996 Zoster Vaccines (1 of 2) Zoste r Vaccines (1 of 2) [facility] Start: 1964 Hepatitis C screening Hepatitis C Sc reening [facility] Start: 1945 Lipid panel Lipid Panel [facility] Start: 1945 Medicare Annual Well ness Visit Medicare Annual Wellness Visit (AWV) [facility] Comprehensive metabo lic 2000 panel - Serum or Plasma [facility] Immunizations Immunization Date Immunization Notes Care Provider Tali hwang 10-24-2024 influenza virus vaccine, unspecified formulation Jr. Garay DO Work Phone: [facility] 08-20-2023 influenza virus vaccine, unspecified formulation Homero XAVIER [facility] 08-27-2022 Pfizer COVID-19 Vac Bivalent 30 MCG/0.3ML Intramuscular Suspension Devang Hall Work Phone: [facility] 08-14-2022 Fluzone High-Dose Quadrivalent 0.7 ML Intramuscular Suspension Prefilled Syringe Devang Hall Work Phone: [facility] 250 DO Work Phone: 08-14-2022 influenza virus vaccine, unspecified formulation ALANIS WOOD [facility] 08-14-2022 influenza, high dose seasonal, preservative-free Devang Hall Other [employer] Other 10-03-2021 Pfizer-BioNTech COVID-19 Vacc 30 MCG/0.3ML Intramuscular Suspension Devang Hall Work Phone: [facility] 10-03-2021 SARS-CoV-2 (COVID-19 ) Ad26 vaccine, recombinant Goldy Alberto [facility] 07-01-2021 Fluzone High-Dose Quadrivalent 0.7 ML Intramuscular Suspension Prefilled Syringe Devang Hall Work Phone: [facility] 07-01-2021 influenza virus vaccine, unspecified formulation ALANISKATT WOOD [facility] 06-05-2021 influenza virus vaccine, unspecified formulation Goldy Alberto Jr. [facility] 01-25-2021 Pfizer-BioNTech COVID-19 Vacc 30 MCG/0.3ML Intramuscular Suspension Marisol Connors MD Work Phone: [facility] 01-25-2021 SARS-CoV-2 (COVID-19 ) Ad26 vaccine, recombinant Goldy Alberto Jr. [facility] 01-03-2021 COVID-19 Vaccine Pfi zer - Documentation Purposes Only Devang Hall Other [facility] 01-03-2021 SARS-CoV-2 (COVID-19 ) mRNA-1273 vaccine Goldy Alberto Jr. [facility] 12-28-2020 Pfizer-BioNTech COVID-19 Vacc 30 MCG/0.3ML Intramuscular Suspension Devang Hall Work Phone: [facility] 11-08-2020 diphtheria, tetanus toxoids and pertussis vaccine Devang E Ball Work Phone: [place] [address] DO Work Phone: 07-06-2020 influenza virus vaccine, unspecified formulation Marisol Connors MD Work Phone: [facility] 07-02-2020 influenza virus vaccine, unspecified formulation ALANIS WOOD [facility] 08-19-2018 influenza virus vaccine, unspecified formulation ALANIS WOOD [facility] 08-19-2018 Seasonal trivalent influenza vaccine, adjuvanted, preservative free Devang Hall Work Phone: [place] [address] DO Work Phone: 07-06-2018 influenza virus vaccine, unspecified formulation Marisol Connors MD Work Phone: [place] [address] DO Work Phone: 08-24-2017 pneumococcal conjuga te vaccine, 13 valent Devang Bustillo Rafael Work Phone: [facility] 08-17-2017 influenza virus vaccine, unspecified formulation ALANIS WOOD [facility] 08-17-2017 influenza, high dose seasonal, preservative-free Devang Bustillo Rafael Work Phone: [place] [address] DO Work Phone: 08-17-2017 influenza, injectabl e, quadrivalent, preservative free Patti Miranda [facility] 11-05-2016 pneumococcal polysaccharide vaccine, 23 valent Marisol Connors MD Work Phone: [place] [address] DO Work Phone: 08-11-2016 influenza virus vaccine, unspecified formulation ALANIS WOOD [facility] 08-05-2016 influenza virus vaccine, unspecified formulation ALANIS WOOD [facility] 08-05-2016 influenza, injectabl e, quadrivalent, preservative free Devang Hall Work Phone: [facility] 07-06-2014 pneumococcal polysaccharide vaccine, 23 valent Devang Hall Work Phone: [facility] Payers Date Payer Category Payer Medicaid [employer] MEDICARE A DVANTAGE [id number] 2021 Medicare [id number] 2021 Medicare (Managed Care) [employer] [facility] [id number] 2017 Medicare [id number] Medicare [id number] 2.16.840.1.423630.19 1946 Unknown [id number] 2.16.840.1.156597.3.579.2. 356 1946 Unknown [id number] 2.16.840.1.033651.3.579.2. 356 1946 Unknown [id number] 2.16.840.1.886962.3.579.2. 356 1946 Unknown [id number] 2.16.840.1.416607.3.579.2. 356 1946 Unknown [id number] 2.16.840.1.657280.3.579.2. 593 1946 Unknown [id number] 2.16.840.1.937564.3.579.2. 593 1946 Unknown [id number] 2.16.840.1.017990.3.579.2. 593 1946 Unknown [id number] 2.16.840.1.085106.3.579.2. 593 1946 Unknown [id number] 2.16.840.1.183914.3.579.2. 593 1946 Unknown [id number] 2.16.840.1.721889.3.579.2. 727 1946 Unknown [id number] 2.16.840.1.548550.3.579.2. 727 1946 Unknown [id number] 2.16.840.1.434868.3.579.2. 727 1946 Unknown [id number] 2.16.840.1.386449.3.579.2. 727 1946 Unknown [id number] 2.16.840.1.934076.3.579.2. 727 1946 Unknown [id number] 2.16.840.1.360792.3.579.2. 727 -02-1945 Unknown [id number] 2.16.840.1.221755.3.579.2. 1946 Unknown [id number] 2.16.840.1.181562.3.579.2 1946 Unknown [id number] 2.16.840.1.513254.3.579.2 1946 Unknown [id number] 2.16.840.1.391950.3.579.2 1946 Unknown [id number] 2.16.840.1.453460.3.579.2 1946 Unknown [id number] 2.16.840.1.751247.3.579.2 1946 Unknown [id number] 2.16.840.1.985476.3.579.2 1946 Unknown [id number] 2.16.840.1.045409.3.579.2 1946 Unknown [id number] 2.16.840.1.484364.3.579.2 1946 Unknown [id number] 2.16.840.1.527299.3.579.2 1946 Unknown [id number] 2.16.840.1.755570.3.579.2 1946 Unknown [id number] 2.16.840.1.158963.3.579.2 1946 Unknown [id number] 2.16.840.1.973370.3.579.2 1946 Unknown [id number] 2.16.840.1.481140.3.579.2 1946 Unknown [id number] 2.16.840.1.759569.3.579.2 1946 Unknown [id number] 2.16.840.1.225539.3.579.2. 727 1946 Unknown [id number] 2.16.840.1.413324.3.579.2. 727 1946 Unknown [id number] 2.16.840.1.808249.3.579.2. 1258 1946 Unknown [id number] 2.16.840.1.644263.3.579.2. 1258 1946 Unknown [id number] 2.16.840.1.996494.3.579.2. 1258 1946 Unknown [id number] 2.16840.1.442794.3.579.2. 1258 1946 Unknown [id number] 2.840.1.611225.3.579.2. 1258 1946 Unknown [id number] 2.840.1.143082.3.579.2. 1258 1946 Unknown [id number] 2.840.1.200543.3.579.2. 1258 1946 Unknown [id number] 2.840.1.222267.3.579.2. 1258 1946 Unknown [id number] 2.840.1.851953.3.579.2. 1258 1946 Unknown [id number] 2.16840.1.874787.3.579.2. 1258 1946 Unknown [id number] 2.16.840.1.668325.3.579.2. 1258 1946 Unknown [id number] 2.16.840.1.428718.3.579.2. 1258 1946 Unknown [id number] 2.16.840.1.133152.3.579.2. 1258 1946 Unknown [id number] 2.16840.1.769050.3.579.2. 1259 1946 Unknown [id number] 2.16.840.1.242956.3.579.2. 1258 1946 Unknown [id number] 2.16.840.1.951257.3.579.2. 1258 1946 Unknown [id number] 2.16.840.1.520027.3.579.2. 1258 1946 Unknown [id number] 2.16.840.1.451921.3.579.2. 1258 1946 Unknown [id number] 2.16.840.1.802489.3.579.2. 1258 1946 Unknown [id number] 2.16.840.1.868732.3.579.2. 1258 1946 Unknown [id number] 2.16.840.1.509748.3.579.2. 1258 1946 Unknown [id number] 2.16.840.1.061111.3.579.2. 1258 1946 Unknown [id number] 2.16.840.1.078334.3.579.2. 1258 1946 Unknown [id number] 2.16.840.1.109564.3.579.2. 1258 1946 Unknown [id number] 2.16.840.1.859520.3.579.2. 1258 1946 Unknown [id number] 2.16.840.1.632769.3.579.2. 1258 1946 Unknown [id number] 2.16.840.1.746675.3.579.2. 1258 1946 Unknown [id number] 2.16.840.1.270543.3.579.2. 1258 1946 Unknown [id number] 2.16.840.1.724295.3.579.2. 1244 1946 Unknown [id number] 2.16.840.1.330945.3.579.2. 1244 Self-pay Self Pay [id number] Unknown [employer] Social History Date Type Detail Facility Tobacco smoking stat us MAIS Unknown if ever smoked [facility] Start: 1945 Sex Assigned At Male F [facility] Start: 11-14-2023 End: 01-28-2025 Social alcohol use Social alcohol use -[facility] 250 DO Work Phone: Start: 11-15-2021 End: 11-14-2023 Tobacco smoking status Ex-smoker (finding) [facility] Comment on above: pt quit smoking in 984 Start: 11-14-2023 End: 01-28-2025 Sex Assigned At Male [facility] Tobacco smoking status Never [facility] Comment on above: pt quit smoking in 984 Start: 01-01-2023 End: 04-05-2023 Tobacco smoking status NHIS Never Smoker [facility] History of tobacco use Current smoker [facility] Work Phone: History of tobacco use Cigarette Smoker [facility] Work Phone: Start: 11-14-2023 End: 07-14-2024 Tobacco use and exposure Smokeless tobacco non-user [facility] Work Phone: Start: 11-14-2023 Alcohol intake Ex-drinker (finding) [facility] Work Phone: Start: 1945 Sex Assigned At Not on file [facility] Work Phone: Start: 11-04-2023 End: 01-28-2025 Exposure to SARS-CoV-2 (event) Not sure [facility] Start: 07-15-2024 End: 01-28-2025 Alcoholic beverage intake Current drinker of alcohol (finding) [facility] Work Phone: Start: 04-05-2023 Alcohol Comment caffeine 2-3 cups/da y [facility] Medical Equipment Procedure Code Equipment Code Equipment Origin al Text Equipment Identifier Dates FDA Start: 06-16-2019 CL CLOSURE DEVIC E EXOSEAL 6F FDA Start: 06-16-2019 CATARACT EXTRACT ION W/ INTRAOCULAR LENS Adolph Schultz DO 11/02/20 Non Biological Eye R [id number] FDA Start: 11-02-2020 CL CLOSURE DEVIC E [...] Assessment Result Facility 09-24-2024 Functional Status N/A [facility] 08-27-2024 Functional Status N/A [facility] 08-19-2024 Functional Status N/A [facility] 08-12-2024 Functional Status N/A [facility] 07-02-2024 Functional Status N/A [facility] 06-24-2024 Functional Status N/A [facility] 06-17-2024 Functional Status N/A [facility] 06-12-2024 Functional Status N/A [facility] 05-02-2024 Functional Status N/A [facility] 03-14-2024 Functional Status N/A [facility] 01-25-2024 Functional Status N/A [facility] 01-09-2024 Functional Status N/A [facility] 12-14-2023 Functional Status N/A [facility] 12-10-2023 Functional Status N/A [facility] 11-09-2023 Functional Status N/A [facility] 10-08-2023 Functional Status N/A [facility] 09-14-2023 Functional Status N/A [facility] 08-07-2023 Functional Status N/A [facility] 05-11-2023 Functional Status N/A [facility] 05-01-2023 Functional Status N/A [facility] 03-19-2023 Functional Status N/A [facility] 03-12-2023 Functional Status N/A [facility] 11-28-2022 Functional Status N/A [facility] 05-30-2022 Functional Status N/A [facility] 05-05-2022 Functional Status N/A [facility] Clinical Notes 12-29-2020 to 01-28-2025 Marisol Connors MD - 01/28/2025 10:30 AM EDTPatient InstructionsJr. Andrew Garay DO - 11/12/2024 10:15 AM EST Note Date & Type Note Facility 01-28-2025 History of Present illness Narrative Chief Complaint Patient presents with Pre-op Clearance Lumbar fusion-Dr. Mcdonald-Scheduled 02/24 Subjective Ridge Roland is a 79 y.o. male HPI Patient is in the office for cardiac clearance prior to lower back surgery scheduled in the near future. He came with his . The patient has a known history of CAD and previous angioplasty involving the right coronary artery in 2019. He has had no recurrent symptoms since that time. He has hypertension hyperlipidemia on medical therapy. He reports no recent symptoms suggestive of active ischemic heart disease and no cardiac arrhythmias or heart failure symptomatology. His physical activity is significantly limited because of his back problem and utilizes a walker for balance. EKG today revealed normal sinus rhythm with no significant abnormalities. His examination outside of his obesity was unremarkable. His labs were drawn couple days ago by his PCP. They are not available for my review at this time Assessment/recommendations: 1-coronary artery disease status post angioplasty of the ostial right coronary artery for 80% stenosis June 2019 with drug-eluting stent. Currently he is on guideline directed medical therapy for chronic ischemic heart disease and stable. The patient need cardiac clearance prior to back surgery. Based on available data and the patient clinical situation there would be no need for delaying the surgery to perform any noninvasive cardiac evaluation and he is cleared for surgery without reservations and without further cardiac testing. He can stop the aspirin prior to surgery. 2-essential hypertension on medical therapy presently under control 3-class I obesity. encouragement for weight loss was provided emphasizing low calorie diet 4-hyperlipidemia on high intensity statin therapy. 5-Severe peripheral neuropathy limit his daily activities 6-chronic arthritis which limits the patient's mobility. Review of Systems All other systems reviewed and are negative. Vitals: 01/28/25 1036 01/28/25 1106 BP: 142/72 130/70 BP Location: Left arm Patient Position: Sitting Pulse: 70 Weight: 114 kg (251 lb) Height: 1.829 m (6') EKG done in office today Objective Physical Exam Constitutional: Appearance: Normal appearance. [...] by mouth once daily., Disp: , Rfl: Klor-Con M20 20 mEq ER tablet, TAKE [...] 11 Assessment/Plan 1. Arteriosclerosis of coronary artery ECG 12 Lead 2. Pre-operative cardiovascular examination ECG 12 Lead 3. Essential hypertension 4. Dyslipidemia 5. Status post coronary angioplasty 6. Former smoker 7. BMI 34.0-34.9,adult Scribe Attestation By signing my name below, Lora Rollins LPN, Scribe attest that this documentation has been prepared under the direction and in the presence of Marisol Connors MD. Provider Attestation - Scribe documentation All medical record entries made by the Scribe were at my direction and personally dictated by me. I have reviewed the chart and agree that the record accurately reflects my personal performance of the history, physical exam, discussion and plan. documented in this encounter [facility] Work Phone: 01-28-2025 Instructions Lora Torres LPN - 01/28/2025 10:30 AM EDT Please bring all medicines, vitamins, [...] BMI was above normal measurement. Current weight: 114 kg (251 lb) Weight change since last visit (-) denotes wt loss 19 lbs Weight loss needed to achieve BMI 25: 67.1 Lbs Weight loss needed to achieve BMI 30: 30.3 Lbs Provided instructions on dietary changes Provided instructions on exercise. Ridge Roland is clear for surgery from a cardiac standpoint 6 months documented in this encounter [facility] Work Phone: 11-12-2024 History of Present illness Narrative Images from the original note were not included. HISTORY OF PRESENT ILLNESS: EST PT Ridge Roland is an 79 y.o. @ male. (R) KNEE (EST PT W/ STEPANIC) RECHECK (R) KNEE ; S/P (R) TKA [...] an appointment with Dr. Mcdonald at the [facility] for orthopedic spine consult. We'll see him [...] requiring urgent evaluation. documented in this encounter [facility] 09-24-2024 Evaluation + Plan note [...] will provide further education and contact the [employer] representatives for additional support. He rates his [...] the remote, we will follow-up with the [employer] ham for further education -Will schedule right [...] with any questions or concerns that arise. [facility] 11-20-2024 NoteConsultation Note Patient is [...] will provide further education and contact the [employer] representatives for additionalsupport. He rates his back [...] the remote, we will follow-up with the [employer] ham for further education -Will schedule right [...] call with any questions or concerns that arise.[facility] CenterComment on above:Result Comment: Electronically Signed By: Bert Huang DO.may\Date and Time Signed: 09/24/24 09:48 [id number] Evaluation + Plan noteExtracted from: Title:Pain Managment [...] will work with the spinal cord stimulator food products sales representative and follow-up in a few weeks for reevaluation. He would like to restart physical therapy. Restrictions were discussed. Showering and wound care was discussed. Follow-up as above mention. ZACARIAS score: 48%. Future Appointments Appointment Date:09/24/2024 08:45:00 AM Scheduled Provider:Bert Huang DO Location[facility] Appointment Type:Pain Management - Follow Up (FT) [facility] 10-23-2024 NoteConsultation Note Patient: RIDGE [...] a reprogramming with the spinal cord stimulator food products sales representative. He has some pain that [...] q12hr, # 20 cap(s), Refills(s) 0, Pharmacy: [facility]/pharmacy #[id number], 193, cm, 08/19/24 7:28:00 EDT, Height/Length Dosing, [...] list: All Problems Hypercholesterolemia / SNOMED CT 42957813 / Confirmed Hernia, inguinal, right / SNOMED CT 343338943 / Confirmed BPH with urinary obstruction / SNOMED CT 3366483268 / Confirmed Elevated PSA / SNOMED CT 8857744875 / Confirmed Impotence / SNOMED CT 5621310128 / Confirmed Urinary frequency / SNOMED CT 724985929 / Confirmed Nocturia / SNOMED CT 327494526 / Confirmed Weak urinary stream / SNOMED CT 225912002 / Confirmed Gross hematuria / SNOMED CT 015488126 / Confirmed Anticoagulated / SNOMED CT 977972067 / Confirmed Urge incontinence / SNOMED CT 780670143 / Confirmed Chronic prostatitis / SNOMED CT 68096701 / Confirmed Dysuria / SNOMED CT 78000146 / Confirmed Urinary retention / SNOMED CT 352505800 / Confirmed BMI 31.0-31.9,adult / SNOMED CT 920703520 / Confirmed Incomplete bladder emptying / SNOMED CT 237285569 / Confirmed Post-void dribbling / SNOMED CT 404606276 / Confirmed Incontinence without sensory awareness / SNOMED CT 0225915094 / Confirmed At risk for falls / SNOMED CT 924028428 / Possible ED (erectile dysfunction) / SNOMED CT 0050805400 / Confirmed Leaking of urine / SNOMED CT 0262409927 / Confirmed Urinary incontinence / SNOMED CT 4310045684 / Confirmed Prostate cancer screening / SNOMED CT 935802061 / Confirmed Resolved: Hypertension / SNOMED CT 0503235874 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 Incision is healing well. A new clean [...] done. He will (more content not included)... [facility] CenterComment on above:Result Comment: Electronically Signed By: Stephenie Barrios PA-C\.br\Date and Time Signed: 08/27/24 11:19 EDT 08-19-2024 [...] analysis of neurostimulator Anesthesia: MAC Complications: None Seed Cleaning Machine Operator: sales assistant entertainment and media provided Implanted devices: -Neuroreceiver/pulse generator: [employer] wavewriter alpha 16 -Neuroelectrodes: two avista 50cm [...] the epidural space with confirmation using glass bmpb-cj-dbeuxldzdd syringe and lead was threaded at T11/12 [...] wound was irrigated with sterile saline. The [employer] wave global technical writer alpha 16 pulse generator kit was [...] pocket. Then with the help of the sales assistant entertainment and media both wounds were closed in a stepwise [...] 2024 10:38 EDT Correction to above: No licensed sales assistant was utilized during this case. Closure was performed by myself. Extracted from: Title:ANES Pre-operative Note 2022 Author:Liliana Alcala CRNA Date:08/19/24 Patient: RIDGE ROLAND Age: 78 years Sex: Male : 1945 Associated Diagnoses: None Author: Liliana Aclala CRNA Preoperative Information Anesthesia Preop Info: Time [...] list: All Problems Anticoagulated / SNOMED CT 637419765 / Confirmed At risk for falls / SNOMED CT 461466901 / Possible BMI 31.0-31.9,adult / SNOMED CT 876822361 / Confirmed BPH with urinary obstruction / SNOMED CT 1247567182 / Confirmed Chronic prostatitis / SNOMED CT 69885359 / Confirmed Dysuria / SNOMED CT 74615882 / Confirmed ED (erectile dysfunction) / SNOMED CT 6067222995 / Confirmed Elevated PSA / SNOMED CT 6628111270 / Confirmed Gross hematuria / SNOMED CT 892486695 / Confirmed Hernia, inguinal, right / SNOMED CT 845588357 / Confirmed Hypercholesterolemia / SNOMED CT 00193637 / Confirmed Impotence / SNOMED CT 4531193431 / Confirmed Incomplete bladder emptying / SNOMED CT 786483797 / Confirmed Incontinence without sensory awareness / SNOMED CT 6264841846 / Confirmed Leaking of urine / SNOMED CT 4229145350 / Confirmed Nocturia / SNOMED CT 578948321 / Confirmed Post-void dribbling / SNOMED CT 517698964 / Confirmed Prostate cancer screening / SNOMED CT 904080514 / Confirmed Urge incontinence / SNOMED CT 104399304 / Confirmed Urinary frequency / SNOMED CT 750742444 / Confirmed Urinary incontinence / SNOMED CT 7135804059 / Confirmed Urinary retention / SNOMED CT 612922928 / Confirmed Weak urinary stream / SNOMED CT 541812004 / Confirmed Resolved: Hypertension / SNOMED CT 6167566698 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 Procedure history: Spinal Cord Stimulator Trial ([id number]) on 06/24/2024 at 78 Years. Comments: 07/02/2024 8:58 Marifer Alegre 60% relief Injection of sacroiliac joint using fluoroscopic guidance (5057964198) on 01/09/2024 at 78 Years. Comments: 01/25/2024 13:34 Azra Fitzgerald RN 90% relief for 4 hrs Radiofrequency ablation of nerve root of lumbar spine using fluoroscopic guidance (1427137565) on 10/08/2023 at 78 Years. Comments: 11/09/2023 11:23 Savannah Paredes RN Bilateral L3/4+L4/5- no relief Biliateral L3/4, L4/5 MBB (6733605011) on 09/04/2023 at 77 Years. Comments: 09/14/2023 7:53 JU Kelly RN, Tomasa Davidson Bilateral L3/4, L4/5 MBB-80% relief for 1 day Bilateral L3/L4 L4/L5 MBB (6041119597) on 08/07/2023 at 77 Years. Comments: 08/28/2023 7:57 Sharee Jama RN BL L3/L4 L4/L5 MBB 85% Relief x 4 hours Caudal epidural ([id number]) on 05/29/2023 at 77 Years. Comments: 06/18/2023 10:04 Sharee Jama RN Caudal john 50% relief L3/4 Medial Branch Blocks (5932758919) on 05/01/2023 at 77 Years. Comments: 05/11/2023 9:48 AMEENA Garrett RN, Savannah Ceballos bilateral 75% relief for 2 hours Injection of facet joint using fluoroscopic guidance (9959103543) on 03/12/2023 at 77 Years. Comments: 03/19/2023 9:18 Myranda Butler RN pt changed amt of relief to 80% x 4 hr. 03/19/2023 8:54 Myranda Butler RN L3/4 MBB- 50% relief x 4 hr Cysto/Botox 100 units ([id number]) on 05/11/2022 at 76 Years. Blepharoplasty ([id number]) on 02/07/2021 at 75 Years. Cystourethroscopy with dilation of urethral stricture (013156256) on 12/02/2020 at 75 Years. Right eye cataract extraction and insertion of intraocular lens (4306812934) on 11/02/2020 at 75 Years. TURP - Transurethral resection of prostate (060510741) on 04/28/2020 at 74 Years. Cystourethroscopy with dilation of urethral stricture (839441643) on 12/08/2019 at 74 Years. back surgery on 10/16/2019 at 74 Years. Comments: 12/02/2019 9:22 Marine Roman 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3 Placement of stent in cardiac conduit (2126967290) on 06/16/2019 at 73 Years. inguinal hernia repair in 2018 at 72 Years. TURP - Transurethral resection of prostate (901011403) on 07/12/2016 at 70 Years. Cystoscopy (48032732) on 06/23/2016 at 70 Years. Evolve laser of prostate ([id number]) on 03/14/2013 at 67 Years. Urodynamics (569224864) on 02/13/2013 at 67 Years. Back (971882947). Arthroscopy of knee joint (994452845). CE - Cataract extraction (1213265814). Release of trigger finger (789152744). Social History Social & Psychosocial Habits Alcohol 08/12/2024 Type: Liquor Frequency: 3-5 times per week 08/12/2024 Use: Current Frequency: Daily 08/12/2024 Use: Current Frequency: Daily Comment: 1-2 shot per day - 03/14/2024 09:48 - Robin JENNINGS, Tomasa Davidson Substance Abuse 08/12/2024isk Assessment: Denies Substance Abuse Tobacco 08/12/2024isk Assessment: Denies Tobacco Use 08/12/2024 Tobacco Use: Former smoker, quit more Smokeless tobacco use: Never Type: Cigarettes Concerns about tobacco use in household: No Smoking Cessation Yes Comment: pt quit smoking in 1983 - 12/02/2019 09:22 - Marine Dempsey Physical Examination Vital Signs 08/19/2024 7:28 EDT [...] adequate air exchange. Cardiovascular: Regular rhythm. Plan [place] Society of Anesthesiologists (ASA) physical status classification: Class III. Anesthetic Preoperative Plan: Anesthesia General. Addendum by Oseas Alcala CRNA on August 19, 2024 7:42 EDT Change title of note to progress note Future Appointments Appointment Date:08/27/2024 11:15:00 AM Scheduled Provider:Stephenie Barrios PA-C Location:[facility] Appointment Type:Pain Management - Follow Up (FT) [facility] 10-15-2024 NoteProgress Note-Physician Patient: RIDGE ROLAND Age: 78 years Sex: Male : 1945 Associated Diagnoses: None Author: Liliana Alcala CRNA Postoperative Information Postoperative disposition: Postoperative disposition: Home. Optimetrix number: Optimetrix number [id number]. Anesthetic utilized: General. Health Status Allergies: Allergic [...] Blood Pressure 62 mm (more content not included)...[facility] CenterComment on above:Result Comment: Electronically Signed By: Liliana Alcala CRNA\.br\Date and Time Signed: 08/19/24 10:25 [id number] Note Progress Note-Physician Patient: RIDGE ROLAND Age: [...] list: All Problems Anticoagulated / SNOMED CT 741959958 / Confirmed At risk for falls / SNOMED CT 005968808 / Possible BMI 31.0-31.9,adult / SNOMED CT 167516317 / Confirmed BPH with urinary obstruction / SNOMED CT 3010551317 / Confirmed Chronic prostatitis / SNOMED CT 00409379 / Confirmed Dysuria / SNOMED CT 79402184 / Confirmed ED (erectile dysfunction) / SNOMED CT 5060070128 / Confirmed Elevated PSA / SNOMED CT 6281371302 / Confirmed Gross hematuria / SNOMED CT 526707032 / Confirmed Hernia, inguinal, right / SNOMED CT 184979007 / Confirmed Hypercholesterolemia / SNOMED CT 46825842 / Confirmed Impotence / SNOMED CT 1434728950 / Confirmed Incomplete bladder emptying / SNOMED CT 550498792 / Confirmed Incontinence without sensory awareness / SNOMED CT 6088089635 / Confirmed Leaking of urine / SNOMED CT 9826546862 / Confirmed Nocturia / SNOMED CT 578040958 / Confirmed Post-void dribbling / SNOMED CT 325812995 / Confirmed Prostate cancer screening / SNOMED CT 950972774 / Confirmed Urge incontinence / SNOMED CT 141585285 / Confirmed Urinary frequency / SNOMED CT 489134659 / Confirmed Urinary incontinence / SNOMED CT 9284867937 / Confirmed Urinary retention / SNOMED CT 260705762 / Confirmed Weak urinary stream / SNOMED CT 754731809 / Confirmed Resolved: Hypertension / SNOMED CT 7147192834 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 Pt. Reports of [...] Training (BFRT) Modalities:(PRN) Assessment: Outcome Measure 07/03/24: 17 LEFS, 08/11/24: RLE grossly MMT: 4+/5 LLE [...] to be instructed in home exercise program. [facility] Goals: To be met in 10 weeks [...] Please sign below. Date: documented in this encounterResearch Medical [id number] History of Present illness Narrative* Ramírez Paez, [...] management for his back- Dr. Huang at [facility]. Review of Systems Constitutional: Negative for appetite [...] reflexes are 0 and symmetric throughout. Coordination: Kfmhue-xx-nide testing and rapid alternating movements are normal Gait: Patient ambulates with a walker Review and summary of old records: MRI of the cervical spine without contrast on 05/27/2024: Multilevel moderate to marked foraminal narrowing with few levels of moderate canal narrowing and qgfg-ws-mgfghlgi disc bulging with facet arthropathy. CT of [...] He has previously had EMG analysis in [place]. He is currently undergoing physical therapy and [...] plan, and return instructions documented in this encounterResearch Medical [id number] Telephone encounter Note* Telephone Encounter - Ulices Esquivel NP - 07/08/2024 10:44 AM EDT Allergies reviewed. Rx sent to pharmacy. [facility] [id number] Miscellaneous Notes* Telephone Encounter - Ulices Esquivel NP - 07/08/2024 10:44 AM EDT Allergies reviewed. Rx sent to pharmacy. * Telephone Encounter - Tomasa Posadas - 07/08/2024 10:22 AM EDT Patient's called stating Ridge is having teeth cleaned 07/15/24 and needs RX sent to [facility] pharmacy is [place]. Please advise. documented in this encounterResearch Medical CenterYiuikqrhrl17-00-0231 Telephone encounter Note* Telephone Encounter - Tomasa Cuauhtemoc - 07/08/2024 10:22 AM EDT Patient's called stating Ridge is having teeth cleaned 07/15/24 and needs RX sent to [facility] pharmacy is [place]. Please advise. [facility] Medical CenterWcmnvxnxxf26-55-2331 Evaluation + Plan noteExtracted from: Title:Pain Managment [...] from our services. ZACARIAS score: 42 %. [facility] [id number] NoteConsultation Note Patient: RIDGE ROLAND Age: 78 [...] list: All Problems Hypercholesterolemia / SNOMED CT 77154844 / Confirmed Hernia, inguinal, right / SNOMED CT 427559589 / Confirmed BPH with urinary obstruction / SNOMED CT 5296118938 / Confirmed Elevated PSA / SNOMED CT 2333846603 / Confirmed Impotence / SNOMED CT 1172307387 / Confirmed Urinary frequency / SNOMED CT 049477476 / Confirmed Nocturia / SNOMED CT 554279224 / Confirmed Weak urinary stream / SNOMED CT 445832162 / Confirmed Gross hematuria / SNOMED CT 495009691 / Confirmed Anticoagulated / SNOMED CT 859073250 / Confirmed Urge incontinence / SNOMED CT 437813186 / Confirmed Chronic prostatitis / SNOMED CT 05598089 / Confirmed Dysuria / SNOMED CT 64000882 / Confirmed Urinary retention / SNOMED CT 876399124 / Confirmed BMI 31.0-31.9,adult / SNOMED CT 111714811 / Confirmed Incomplete bladder emptying / SNOMED CT 841878285 / Confirmed Post-void dribbling / SNOMED CT 020732663 / Confirmed Incontinence without sensory awareness / SNOMED CT 5457767686 / Confirmed At risk for falls / SNOMED CT 098762477 / Possible ED (erectile dysfunction) / SNOMED CT 1053918676 / Confirmed Leaking of urine / SNOMED CT 4453424284 / Confirmed Urinary incontinence / SNOMED CT 2820942132 / Confirmed Prostate cancer screening / SNOMED CT 626878355 / Confirmed Resolved: Hypertension / SNOMED CT 8559173514 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 Neurologic: Alert, Oriented. Psychiatric: Cooperative, Appropriate mood [...] medications. He had a (more content not included)...[facility] CenterComment on above:Result Comment: Electronically Signed By: Sophie SHIPMAN, Stephenie\.br\Date and Time Signed: 07/02/24 09:36 [id number] NoteProgress Note-Physician Patient: RIDGE ROLAND Age: 78 [...] Problems Leaking of urine / SNOMED CT 1343010738 / Confirmed Urinary incontinence / SNOMED CT 8305941423 / Confirmed Urge incontinence / SNOMED CT 692787037 / Confirmed Hernia, inguinal, right / SNOMED CT 604412004 / Confirmed Urinary retention / SNOMED CT 730537877 / Confirmed Elevated PSA / SNOMED CT 7657870417 / Confirmed Post-void dribbling / SNOMED CT 155369430 / Confirmed Weak urinary stream / SNOMED CT 139217870 / Confirmed Prostate cancer screening / SNOMED CT 087113423 / Confirmed Nocturia / SNOMED CT 367246653 / Confirmed Urinary frequency / SNOMED CT 674940323 / Confirmed Incontinence without sensory awareness / SNOMED CT 4617273240 / Confirmed Impotence / SNOMED CT 2725834899 / Confirmed Hypercholesterolemia / SNOMED CT 27009955 / Confirmed Gross hematuria / SNOMED CT 112418767 / Confirmed Incomplete bladder emptying / SNOMED CT 345971213 / Confirmed ED (erectile dysfunction) / SNOMED CT 3890108717 / Confirmed Dysuria / SNOMED CT 78303262 / Confirmed Anticoagulated / SNOMED CT 280457054 / Confirmed Chronic prostatitis / SNOMED CT 29303004 / Confirmed BMI 31.0-31.9,adult / SNOMED CT 439431929 / Confirmed BPH with urinary obstruction / SNOMED CT 7203869423 / Confirmed At risk for falls / SNOMED CT 599547047 / Possible 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 Comments: 01/25/2024 13:34 Azra Fitzgerald RN 90% relief for 4 hrs Radiofrequency ablation of nerve root of lumbar spine using fluoroscopic guidance (5298493386) on 10/08/2023 at 78 Years. Comments: 11/09/2023 11:23 Savannah Paredes RN Bilateral L3/4+L4/5- no relief Biliateral L3/4, L4/5 MBB (2813823122) on 09/04/2023 at 77 Years. Comments: 09/14/2023 7:53 Tomasa Abdullahi RN Bilateral L3/4, L4/5 MBB-80% relief for 1 day Bilateral L3/L4 L4/L5 MBB ([id number]) on 08/07/2023 at 77 Years. Comments: 08/28/2023 7:57 Sharee Jama RN L3/L4 L4/L5 MBB 85% Relief x 4 hours Caudal epidural (257472866) on 05/29/2023 at 77 Years. Comments: 06/18/2023 10:04 Sharee Jama RN Caudal john 50% relief L3/4 Medial Branch Blocks (3236119540) on 05/01/2023 at 77 Years. Comments: 05/11/2023 9:48 Savannah Mari RN bilateral 75% relief for 2 hours Injection of facet joint using fluoroscopic guidance (8309752102) on 03/12/2023 at 77 Years. Comments: 03/19/2023 9:18 Myranda Butler RN pt changed amt of relief to 80% x 4 hr. 03/19/2023 8:54 Myranda Butler RN L3/4 MBB- 50% relief x 4 hr Cysto/Botox 100 units ([id number]) on 05/11/2022 at 76 Years. Blepharoplasty ([id number]) on 02/07/2021 at 75 Years. Cystourethroscopy with dilation of urethral stricture (310978336) on 12/02/2020 at 75 Years. Right eye cataract extraction and insertion of intraocular lens (5279300148) on 11/02/2020 at 75 Years. TURP - Transurethral resection of prostate ([id number]) on 04/28/2020 at 74 Years. Cystourethroscopy with dilation of urethral stricture (451672138) on 12/08/2019 at 74 Years. back surgery on 10/16/2019 at 74 Years. Comments: 12/02/2019 9:22 JU - Marine Dempsey M 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3 Placement of stent in cardiac conduit (8914815863) on 06/16/2019 at 73 Years. inguinal hernia repair in 2018 at 72 Years. TURP - Transurethral resection of prostate (009473700) on 07/12/2016 at 70 Years. Cystoscopy ([id number]) on 06/23/2016 at 70 Years. Evolve laser of prostate ([id number]) on 03/14/2013 at 67 Years. Urodynamics (102707023) on 02/13/2013 at 67 Years. Back (199575555). Arthroscopy of knee joint (206611825). CE - Cataract extraction (4093643487). R (more content not included)...[facility] CenterComment on above: Result Comment: Electronically Signed By: Gokul Escalera Jr, DObr\Date and Time Signed: 06/26/24 07:45 [id number] NoteProgress Note-Physician Patient: RIDGE ROLAND Age: 78 [...] Discharge when meets criteria ( To home ).[facility] CenterComment on above:Result Comment: Electronically Signed By: Gokul Escalera Jr, DO\.br\Date and Time Signed: 06/26/24 07:45 EDT 06-24-2024 Evaluation + Plan noteExtracted from: Title:Spinal cord stimulator trial Author:Bert Huang DO Date:06/24/24 Diagnosis: Lumbar postlamine ctomy pain syndrome, M96.1. Chronic pain syndrome G89.29. Procedure: Spinal cord stimulator trial under fluoroscopic guidance with two 16 contact In[employer] leads from [employer] and 2 click anchors, 92309. Analyze neurostimulator complex, 98756. Anesthesia: MAC Complications: None Description: After informed [...] the epidural space with confirmation using glass tter-yf-slzbxiilrr syringe and lead was threaded at T12/L1. [...] 08:45:00 AM Scheduled Provider:Stephenie Barrios PA-C Location:.[facility] Appointment Type:Pain Management - Follow Up (FT) [facility] 08-08-2024 Hospital Discharge instructions Patient [...] nerve stimulation). ?For women, using a medical assistant per diem to prevent urine leaks. This is a [...] right after experiencing incontinence. General instructions Take eguw-bdw-yhzjpmt and prescription medicines only as told by [...] important. Where to find more information [employer] [place] of Diabetes and Digestive and Kidney Diseases: www.niddk.nih.gov [employer] U[employer] Association: www.urologyhealth.org Contact a health care [...] provider. Document Revised: 05/27/2021 Document Reviewed: 05/27/2021 Business Exchange Patient Education 2022 [employer]. Follow Up Care 05/23/2024 09:29:30 With:ALANIS WOOD PA-C, URL Address: [address] [place] [address] When: Unknown Comments:KESHIA [facility] 08-08-2024 NotePatient Education Urology Urinary Incontinence Urinary [...] stimulation). ? For women, using a medical assistant per diem to prevent urine leaks. This is a [...] that can protect the (more content not included)...[facility]07-18-2024 History of Present illness Narrative* Marisol Connors [...] Scribe Attestation By signing my name below, Lora Rollins LPN , Scribe attest that this documentation has been prepared under the direction and in the presence of Marisol Connors MD. Provider Attestation - Scribe documentation All medical record entries made by the Scribe were at my direction and personally dictated by me. Ken reviewed the chart and agree that the record accurately reflects my personal performance of the history, physical exam, discussion and plan. [facility] Phone: 1(214) 279-228107-18-2024 Instructions* Patient Instructions* Lora Torres LPN - [...] proceed with back stimulator [facility] Work Phone: 1(505) 254-567306-28-2024 Evaluation + Plan noteExtracted from: Title:Pain Managment [...] authorization has been obtained ZACARIAS score: 56%. [facility]06-28-2024 NoteConsultation Note Patient: RIDGE ROLAND [...] hrs., # 15 tab(s), Refills(s) 3, Pharmacy: [facility]/pharmacy #[id number], 193, cm, 08/31/22 9:11:00 EDT, Height/Length Dosing, 114.5, kg, 08/31/22 9:11:00 EDT, Weight Dosing... amitriptyline 10 mg Tab: 10 mg = 1 tab(s), Oral, Once a day (at bedtime), X 30 day(s), # 30 tab(s),Refills(s) 1, [id number], 193, cm, 03/14/24 9:55:00 EDT, Height/Length Dosing, 104.5, kg, 03/14/24 9:55:00 EDT, Weight Dosing amitriptyline 25 mg Tab: 25 mg = 1 tab(s), Oral, Once a day (at bedtime), X 30 day(s), # 30 tab(s),Refills(s) 1, Pharmacy: [facility]/pharmacy #[id number], 193, cm, 05/02/24 10:29:00 EDT, Height/Length Dosing, 104.5, kg, 03/14/24 9:55:00 EDT, Weight Dosing pregabalin 25 mg Cap: 25 mg = 1 cap(s), Oral, BID, # 60 cap(s), Refills(s) 2, [id number], 193, cm, 11/09/23 11:29:00 [...] list: All Problems Hypercholesterolemia / SNOMED CT 27895722 / Confirmed Hernia, inguinal, right / SNOMED CT 679469217 / Confirmed BPH with urinary obstruction / SNOMED CT 5572689443 / Confirmed Elevated PSA / SNOMED CT 8527677684 / Confirmed Impotence / SNOMED CT 7833641961 / Confirmed Urinary frequency / SNOMED CT 485701030 / Confirmed Nocturia / SNOMED CT 224500235 / Confirmed Weak urinary stream / SNOMED CT 424634820 / Confirmed Gross hematuria / SNOMED CT 520161180 / Confirmed Anticoagulated / SNOMED CT 267925831 / Confirmed Urge incontinence / SNOMED CT 634177603 / Confirmed Chronic prostatitis / SNOMED CT 62011474 / Confirmed Dysuria / SNOMED CT 15805660 / Confirmed Urinary retention / SNOMED CT 955450478 / Confirmed BMI 31.0-31.9,adult / SNOMED CT 607496735 / Confirmed Incomplete bladder emptying / SNOMED CT 790698994 / Confirmed Post-void dribbling / SNOMED CT 329696748 / Confirmed Incontinence without sensory awareness / SNOMED CT 7055367564 / Confirmed At risk for falls / SNOMED CT 644964881 / Possible ED (erectile dysfunction) / SNOMED CT 5714250730 / Confirmed Leaking of urine / SNOMED CT 4490655980 / Confirmed Urinary incontinence / SNOMED CT 3014573484 / Confirmed Prostate cancer screening / SNOMED CT 580069014 / Confirmed Resolved: Hypertension / SNOMED CT 6957744621 Resolved: 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 Eye: Normal conjunctiva. HENT (more content not included)...[facility]: Result Comment: Electronically Signed By: Stephenie Barrios PA-C\.br\Date and Time Signed: 05/02/24 10:53 [id number] Evaluation + Plan noteExtracted from: Title:Pain Managment [...] Date:05/02/2024 10:30:00 AM Scheduled Provider:Stephenie Barrios PA-C Location:[facility] Appointment Type:Pain Management - Follow Up (FT) [facility]03-22-2024 Evaluation + Plan noteExtracted from: [...] Date:03/14/2024 09:45:00 AM Scheduled Provider:Stephenie Barrios PA-C Location[facility] Appointment Type:Pain Management - Follow Up (FT) [facility]03-06-2024 Evaluation + Plan noteExtracted from: Title:Bilateral sacroiliac joint injection Autho r:Jerry REYNA Bert CeballosIlir Date:01/09/24 Diagnosis: M46.1, bilateral sacroiliitis Procedure: Bilateral [...] Date:01/25/2024 01:30:00 PM Scheduled Provider:Stephenie Barrios PA-C Location:.[facility] Appointment Type:Pain Management - Follow Up (FT) [facility]03-06-2024 Note [id number] 01-09-2024 NoteDiagnosis: M46.1, bilateral sacroiliitis Procedure: [...] procedure, and agrees to continue currently prescribed/recommended therapies.[facility] Comment on above:Result Comment: Electronically Signed By: Bert Haung DO.br\Date and Time Signed: 01/09/24 11:32 [id number] Hospital Discharge instructions Patient Education 12/14/2023 10:59:33 [...] nerve stimulation). ?For women, using a medical assistant per diem to prevent urine leaks. This is a [...] right after experiencing incontinence. General instructions Take eajd-ybt-gwjdipw and prescription medicines only as told by [...] important. Where to find more information [place] of Diabetes and Digestive and Kidney Diseases: www.niddk.nih.gov [employer] Urology Association: www.urologyhealth.org Contact a health care [...] provider. Document Revised: 05/27/2021 Document Reviewed: 05/27/2021 Business Exchange Patient Education 2022 [employer]. Follow Up Care 12/07/2023 15:16:05 With:DUC WALTERS, Homero Marie, URL Address: [facility] [address], [place] [address]- [phone] When: only if needed [facility] 02-05-2024 Evaluation + Plan noteExtracted from: Title:Pain [...] Date:12/14/2023 09:30:00 AM Scheduled Provider:Homero XAVIER MD Location:[facility] Appointment Type:URO Office Visit [facility]01-10-2024 History of Present illness Narrative* [...] Scribe Attestation By signing my name below, IRuby LPN , Scribiwona attest that this documentation has been prepared under the direction and in the presence of Marisol Connors MD. Assessment/Plan 1. Arteriosclerosis of coronary artery Follow Up In Cardiology 2. Status post coronary angioplasty 3. Dyslipidemia 4. Essential hypertension 5. Obesity (BMI 30.0-34.9) 6. At risk for falls documented in this [facility] Work Phone: 1(230) 222-199201-10-2024 Instructions* Patient Instructions* Steven Wheeler MA - [...] Fall Prevention Education Given documented in this [facility] Work Phone: 1(377) 451-506801-05-2024 Evaluation + Plan noteExtracted from: Title:Pain Managment [...] Date:12/10/2023 11:15:00 AM Scheduled Provider:Bib Sanchez MD Location:[facility] Appointment Type:Pain Management - Follow Up (FT) Appointment Date:12/11/2023 01:00:00 PM Scheduled Provider:ALANIS WOOD PA-C Location:[facility] Appointment Type:URO Office Visit [facility]12-19-2023 Evaluation note* Encounter Date Diagnosis [...] Oct, Fatigue, unspecified type (ICD-10 - R53.83) [employer] Other 12-04-2023 Note [id number]#1.00[facility] 09-14-2023 Evaluation + Plan noteExtracted from: Title:Pain [...] follow-up as above mentioned ZACARIAS score: 28% [facility]10-31-2023 Note [id number]#1.00[facility] 08-07-2023 [id number]:127[facility]07-07-2023 Evaluation + Plan noteExtracted from: Title:Pain Managment [...] clinic sooner if necessary. ZACARIAS score: 42% [facility]06-29-2023 Evaluation note* Encounter Date Diagnosis Assessment Notes Treatment Notes Treatment Clinical Notes Apr, Thyroid cyst (ICD-10 - E04.1) FNA non-diagnostic - 2014, US: stable nodules, no further scans necessary - 04/2023 [employer] Other 05-15-2023 Evaluation + Plan noteExtracted from: [...] clinic sooner if necessary. ZACARIAS score: 48% [facility]04-19-2023 Evaluation note* Encounter Date Diagnosis Assessment Notes Treatment Notes Treatment Clinical Notes Feb, Low back pain, unspecified (ICD-10 - M54.50) [employer] Other 02-27-2023 Evaluation note* Encounter Date Diagnosis [...] R26.89) Dec, Physical deconditioning (ICD-10 - R53.81) [facility]. Other 01-25-2023 Evaluation note* Encounter Date Diagnosis Assessment Notes Treatment Notes Treatment Clinical Notes Nov, Low back pain, unspecified (ICD-10 - M54.50) Nov, Other chronic pain (ICD-10 - G89.29) [employer] Other 01-24-2023 Hospital Discharge instructions Patient Education [...] urethra. Follow these instructions at home: Take tvol-wky-klnnasu and prescription medicines only as told by [...] 10/22/2006 Document Revised: 09/16/2019 Document Reviewed: 11/26/2017 Business Exchange Patient Education 2020 [employer]. Follow Up Care 08/31/2022 09:40:03 With:ALANIS WOOD PA-C, URL Address: [address] [place] [address] [place] [address] When: Unknown [facility] 07-26-2022 Hospital Discharge instructions Patient Education 05/30/2022 [...] urethra. Follow these instructions at home: Take bfuq-swt-odznyew and prescription medicines only as told by [...] 10/22/2006 Document Revised: 09/16/2019 Document Reviewed: 11/26/2017 Business Exchange Patient Education 2020 [employer]. Follow Up Care 05/11/2022 10:39:09 With:Remy Cruz MD, Goldy Collins URO Address: [facility] [address] , [place] [address]- [phone] When:Within 2 Month(s) Comments:PVR [facility] 07-07-2022 Hospital Discharge instructions Patient Education 05/11/2022 [...] Up Care 03/14/2022 16:38:15 With:Goldy Alberto Address: [facility] [address] , [place] [address]- Business (1) When:4 weeks Comments:PVR with next office visit [facility]06-15-2021 NoteHNO ID: [id number] Author: Alanis Nguyen MD Service: ? Author [...] He had a second opinion with Dr. 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 He established with [...] hence has not been back to the [facility]. He is not compliant with PT exercises. He continues to have numbness in the feet with intermittent tingling, no sharp/burning pain. ?On 11/08/20, he tripped over the laundry basket and had a cut on the right forehead. No loss of consciousness, he was brought to [facility] needing stitches. CT c- spine showed degenerative [...] as he can do more at the [facility]. They are planning to go back to the [facility]. Current Outpatient Medications Medication Sig [...] pain, no s (more content not included)... [facility]02-24-2021 NotePatient Outreach (COVAMN) RIDGE ROLAND ([id number]) 1945 M Date Time Provider Department 12/29/20 YARITZA WILLSON During your visit today, we recorded the following information about you: Allergies As of Date: 12/29/2020 (No Known Allergies) Date Reviewed: 11/16/2020 Reviewed by: Mauri Du) SHIRA Horn - Fully Assessed Order(s):SARS-COVID VACCINE 1ST DOSE APPT [[id number]] Order #: [id number] FUTURE Prescriptions as of 12/29/2020 Sig: CYANOCOBALAMIN [...] Of Date: 12/29/2020 (None) Encounter Status:Closed by EPIC, PRODUSER on 01/03/21[facility] Evaluation + Plan note Future Appointments Appointment Date:05/11/2022 10:00:00 AM Scheduled Provider: Location:[facility] Appointment Type:Urology FT [facility] evaluation + Plan note Future Appointments Appointment Date:05/30/2022 09:30:00 AM Scheduled Provider:Goldy Alberto Jr., MD Location:[facility] App[facility]ment [facility] Future Appointments Appointment Date:08/08/2022 08:45:00 AM Scheduled Provider:Goldy Alberto Jr., MD Location:[facility] Appointment Type:URO Office Visit [facility] evaluation + Plan note Future Appointments Appointment Date:01/10/2023 11:00:00 AM Scheduled Provider:ALANIS WOOD PA-C Location:[facility] Appointment Type:URO Office Visit [facility] evaluation + Plan note Future Appointments Appointment Date:03/19/2023 08:30:00 AM Scheduled Provider:Stephenie Barrios PA-C Location:[facility] Appointment Type:Pain Management - [facility] Future Appointments Appointment Date:05/11/2023 10:00:00 AM Scheduled Provider:Stephenie Barrios PA-C Location:[facility] Appointment Type:Pain Management - [facility] Future Appointments Appointment Date:08/28/2023 07:45:00 AM Scheduled Provider:Bib Sanchez MD Location:[facility] [place] Appointment Type:Pain Management - [facility] ([facility] Future Appointments Appointment Date:11/09/2023 11:15:00 AM Scheduled Provider:Stephenie Barrios PA-C Location:[facility] [place] Appointment Type:Pain Management - [facility] ([facility] Future Appointments Appointment Date:06/17/2024 11:30:00 AM Scheduled Provider:Bert Huang DO Location:[facility] [place] Appointment Type:Pain Management - Nurse Consult (FT) Appointment Date:06/24/2024 08:00:00 AM Scheduled Provider: Location:[facility] Appointment Type:Surgery FT Appointment Date:07/02/2024 08:45:00 AM Scheduled Provider:Stephenie Barrios PA-C Location:[facility] [place] Appointment Type:Pain Management - Follow Up (FT) [facility] evaluation + Plan note Future Appointments Appointment Date:06/24/2024 08:00:00 AM Scheduled Provider: Location:[facility] Appointment Type:Surgery FT Appointment Date:07/02/2024 08:45:00 AM Scheduled Provider:Stephenie Barrios PA-C Location:[facility] [place] Appointment Type:Pain Management - Follow Up (FT) [facility] evaluation + Plan note Future Appointments Appointment Date:06/24/2024 08:00:00 AM Scheduled Provider: [facility] Type:Surgery FT Appointment Date:07/02/2024 08:45:00 AM Scheduled Provider:Stephenie Barrios PA-C Location:[facility] [place] Appointment Type:Pain Management - Follow Up (FT) Diagnostic Tests Pending * MRSA Screen 06/17/24 [facility] evaluation + Plan note Future Appointments Appointment Date:08/19/2024 08:00:00 AM Scheduled Provider: [facility] Type:Surgery FT Appointment Date:08/27/2024 11:15:00 AM Scheduled Provider:Stephenie Barrios PA-C Location:[facility] [place] Appointment Type:Pain Management - Follow Up (FT) Diagnostic Tests Pending * MRSA Screen 08/12/24 [facility] evaluation + Plan note Future Appointments Appointment Date:08/19/2024 08:00:00 AM Scheduled Provider: Location:[facility] Appointment Type:Surgery FT Appointment Date:08/27/2024 11:15:00 AM Scheduled Provider:Stephenie Barrios PA-C Location:[facility] [place] Appointment Type:Pain Management - Follow Up (FT) [facility] evaluation noteNo [id number] [employer] Other evaluation note556 [employer] Other evaluation note* Diagnosis Arteriosclerosis of coronary artery- Primary Status post coronary angioplasty Postsurgical percutaneous transluminal coronary angioplasty status Dyslipidemia Other and unspecified hyperlipidemia Essential hypertension Unspecified essential hypertension Obesity (BMI 30.0-34.9) At risk for falls Personal history of fall documented in this encounter [facility] Work Phone: Evaluation note* Diagnosis Onset Date Resolution Status Abnormal intentional weight loss acute ASHD (arteriosclerotic heart disease) acute Hypercholesterolemia acute Impaired fasting glucose acu te Memory deficit acute Primary hypertension acute [facility] Work Phone: Evaluation note* Diagnosis Onset Date Resolution Status Impaired fasting glucose acu te Lumbar spondylosis acute Memory deficit acute Primary hypertension acute Abnormal intentional weight loss acute ASHD (arteriosclerotic heart disease) acute Impaired fasting glucose acu te Primary hypertension acute [facility] Work Phone: Evaluation note* Diagnosis Onset Date Resolution Status ASHD (arteriosclerotic heart disease) acute Hypercholesterolemia acute Impaired fasting glucose acu te Lumbar spondylosis acute Polyneuropathy acute Primary hypertension acute Medicare annual wellness visit, subsequent noneactive Screening PSA (prostate specific antigen) noneactive [facility] Work Phone: Evaluation note* Diagnosis Onset [...] spondylosis acute Polyneuropathy acute Primary hypertension acute [facility] Work Phone: Evaluation note* Diagnosis Acute [...] idiopathic peripheral neuropathy documented in this encounter [facility] Work Phone: Evaluation note* Diagnosis Acute pain [...] [facility] Diagnosis History of total right knee replacement- Primary [facility]* Diagnosis Multilevel degenerative disc disease- Primary Hypophonia [facility]* [...] History of falling [facility] Diagnosis Acute pain of left knee- Primary History of fall Personal history of fall Poor balance Difficulty walking Difficulty in walking Leg weakness, bilateral Muscle weakness (generalized) Foot drop, right foot History of falling Left hip impingement syndrome Right hip impingement syndrome [facility]* Diagnosis Swelling of joint of right knee- Primary Right knee pain, unspecified chronicity [facility]* Diagnosis Pre-operative cardiovascular examination- Primary Arteriosclerosis of coronary artery Essential hypertension Unspecified essential hypertension Dyslipidemia Other and unspecified hyperlipidemia Status post coronary angioplasty Postsurgical percutaneous transluminal coronary angioplasty status Former smoker Personal history of tobacco use, presenting hazards to health BMI 34.0-34.9,adult Obesity, Class I, BMI 30-34.9 documented in this encounter [facility] Work Phone: History general Narrative - Reported* Type Description Date Medical History HTN Medical History neuropathy Medical History arthritis Medical History heart stent Medical History cataracts Medical History Gout Medical History high cholesterol Medical History prostate Surgical History heart cath with stent placed Surgical History back surgery x 2 Surgical History hernia repair Hospitalization History see surg hx [facility] [employer] Other History general Narrative - Reported* Type [...] eyes Hospitalization History see surgery list S [facility]. Other [facility] - [facility] [employer] Other Hospital course Narrative No data available for this section [facility] Hospital Discharge instructions No data available for this section [facility] progress note No data available for this section [facility] reason for referral (narrative)* Consultation (Routine) - Authorized Specialty Diagnoses / Procedures Referred By Contac t Referred To Contact Cardiology Diagnoses Arteriosclerosis of coronary artery Procedures Follow Up In Cardiology Marisol Connors MD [address] [facility] [address], [address] [address] Marisol Connors MD [address] [facility], [facility] [address] [place] [address] Referral ID Status Reason Start Date Expiration Date V isits Requested Visits Authorized [id number] Authorized 11/14/2023 11/13/2024 1 1 [facility] Work Phone: Reason for referral (narrative)* Consultation (Routine) - Authorized Specialty Diagnoses / Procedures Referred By Jonathan t Referred To Contact Cardiology Diagnoses Arteriosclerosis of coronary artery Procedures Follow Up In Cardiology Marisol Connors MD [address] [facility] [address], [address] [place] [address] Marisol Connors MD [address] [facility] [address], [address] [place] [address] Referral ID Status Reason Start Date Expiration Date V isits Requested Visits Authorized [id number] Authorized 05/22/2024 05/22/2025 1 1 [facility] Work Phone: reason for visit Narrative* Consultation (Routine) - Authorized Specialty Diagnoses / Procedures Referred By Jonathan t Referred To Contact Physical Therapy Diagnoses Acute pain of left knee Foot drop, right foot History of falling Left hip impingement syndrome Right hip impingement syndrome Procedures ME OFFICE/OUTPATIENT NEW HIGH MDM 60 MINUTES Fatoumata Montes PA [address] [facility] [address] [place] [address] Philip Aldrich, PT [address] [facility] [address] [place] [address] Referral ID Status Reason Start Date Expiration Date Visits Requested Visits Authorized [id number] Authorized Consult and Treat 05/13/2024 11/09/2024 99 99 [facility] N[facility]* Consultation (Routine) - Closed Specialty Diagnoses / Procedures Referred By Contac t Referred To Contact Physical Therapy Diagnoses Acute pain of left knee Foot drop, right foot History of falling Left hip impingement syndrome Right hip impingement syndrome Procedures ME OFFICE/OUTPATIENT NEW HIGH MDM 60 MINUTES Fatoumata Montes PA [address] [facility] [address] [place] [address] Philip Aldrich, PT [address] [facility] [address] [place] [address] Referral ID Status Reason Start Date Expiration Date V isits Requested Visits Authorized [id number] Closed Consult and Treat 05/13/2024 11/09/2024 99 [...] 1 Lumbar spondylosis ( M47.816) Referral Organization [facility] Referring Provider First Name Devang Referring Provider Last Name Rafael Referring Provider Specialty Internal Me dicine Referred Organization [facility] Referred Provider Allison Kenyon Referred Address [address] [place], [place],[address] Referred Provider Specialty Neurological Surgery Referral Priority [...] Visit Chief Complaint 6 Month Follow Up [facility] Reason for Visit Abnormal intentional weight loss ASHD (arteriosclerotic heart disease) Hypercholesterolemia Impaired fasting glucose Memory deficit Primary hypertension Chief Complaint [facility] Blood Pressure Reason for Visit Impaired fasting [...] section and content) DATE CREATED AUTHOR 04/23/2018 Clear [facility] DATE CREATED AUTHOR AUTHOR'S ORGANIZ ATION 09/10/2020 [facility] DATE CREATED AUTHOR AUTHOR'S ORGANIZ ATION 12/26/2021 [facility] DATE CREATED AUTHOR AUTHOR'S ORGANIZ ATION 03/11/2023 [facility] DATE CREATED AUTHOR AUTHOR'S ORGANIZ ATION 03/11/2023 [facility] DATE CREATED AUTHOR AUTHOR'S ORGANIZ ATION 03/18/2023 [facility] DATE CREATED AUTHOR AUTHOR'S ORGANIZ ATION 06/19/2024 [facility] DATE CREATED AUTHOR AUTHOR'S ORGANIZ ATION 08/13/2024 [facility] DATE CREATED AUTHOR AUTHOR'S ORGANIZ ATION 09/26/2024 [facility] DATE CREATED AUTHOR AUTHOR'S ORGANIZ ATION 11/17/2024 [facility] DATE CREATED AUTHOR AUTHOR'S ORGANIZ ATION 01/27/2025 [facility] DATE CREATED AUTHOR AUTHOR'S ORGANIZ ATION 01/29/2025 [facility] Direct Care Professional Team (unrecognized sect ion and content) Team [...] January 18, 2024 End: January 18, 2024 Chemical Etch Operator Relationship Specialty Start Date End Date Devang Hall DO [address] [place] [address] PCP - General Internal Medicine 11/14/23 Team [...] June 13, 2024 End: June 13, 2024 Chemical Etch Operator Relationship Specialty Start Date End Date Devang Hall MD [address] [place] [address] PCP - General Internal Medicine 02/25/24 Chemical Etch Operator Relationship Specialty Start Date End Date Devang Hall MD [address] [place] [address] PCP - General Internal Medicine 02/25/24 Chemical Etch Operator Relationship Specialty Start Date End Date Devang Hall MD [address] [place] [address] PCP - General Internal Medicine 02/25/24 Chemical Etch Operator Relationship Specialty Start Date End Date Devang Hall MD [address] [place] [address] PCP - General Internal Medicine 02/25/24 Chemical Etch Operator Relationship Specialty Start Date End Date Devang Hall MD [address] [place] [facility] [address] PCP - General Internal Medicine 02/25/24 Chemical Etch Operator Relationship Specialty Start Date End Date Devang Hall MD [address] [place] [facility] [address] PCP - General Internal Medicine 02/25/24 Chemical Etch Operator Relationship Specialty Start Date End Date Devang Hall MD [address] [place] [facility] [address] PCP - General Internal Medicine 02/25/24 Chemical Etch Operator Relationship Specialty Start Date End Date Devang Hall MD [address] [place] [facility] [address] PCP - General Internal Medicine 02/25/24 Chemical Etch Operator Relationship Specialty Start Date End Date Devang Hall MD [address] [place] [facility] [address] PCP - General Internal Medicine 02/25/24 Chemical Etch Operator Relationship Specialty Start Date End Date Devang Hall MD [address] [place] [facility] [address] PCP - General Internal Medicine 02/25/24 Chemical Etch Operator Relationship Specialty Start Date End Date Devang Hall DO PCP - General Internal Medicine 11/14/23 Chemical Etch Operator Relationship Specialty Start Date End Date Devang Hall MD [address] [place] [facility] [address] PCP - General Internal Medicine 02/25/24 Chemical Etch Operator Relationship Specialty Start Date End Date Devang Hall MD [address] [facility] [place] [address] PCP - General Internal Medicine 02/25/24 Chemical Etch Operator Relationship Specialty Start Date End Date Devang Hall MD [address] [facility] [place] [address] PCP - General Internal Medicine 02/25/24 Chemical Etch Operator Relationship Specialty Start Date End Date Devang Hall MD [address] [facility] [place] [address] PCP - General Internal Medicine 02/25/24 Chemical Etch Operator Relationship Specialty Start Date End Date Devang Hall MD [address] [facility] [place] [address] PCP - General Internal Medicine 02/25/24 Chemical Etch Operator Relationship Specialty Start Date End Date Devang Hall MD [address] [facility] [place] [address] PCP - General Internal Medicine 02/25/24 Chemical Etch Operator Relationship Specialty Start Date End Date Devang Hall MD [address] [facility] [place] [address] PCP - General Internal Medicine 02/25/24 Chemical Etch Operator Relationship Specialty Start Date End Date Devang Hall MD [address] [facility] [place] [address] PCP - General Internal Medicine 02/25/24 Chemical Etch Operator Relationship Specialty Start Date End Date Devang Hall MD [address] [place] [address] PCP - General Internal Medicine 02/25/24 Chemical Etch Operator Relationship Specialty Start Date End Date Devang Hall MD [address] [place] [address] PCP - General Internal Medicine 02/25/24 Chemical Etch Operator Relationship Specialty Start Date End Date Devang Hall MD [address] [place] [address] PCP - General Internal Medicine 02/25/24 Chemical Etch Operator Relationship Specialty Start Date End Date Devang Hall DO PCP - General Internal Medicine 11/14/23 Anita Schmid MD [facility] [place] [address] Referring Physician 01/28/25 REASON FOR VISIT (unrecogniz ed section and content) Reason Comments Follow-up 6 month Reason Comments Follow-up 6 months Specialty Diagnoses / Procedures Referred By Jonathan gann Referred To Contact Cardiology Diagnoses Arteriosclerosis of coronary artery Procedures Follow Up In Cardiology Marisol Connors MD [address] [facility] [address], [address] [address] Marisol Connors MD [facility] [facility], [facility] [address] [place] [address] Referral ID Status Reason Start Date Expiration Date V isits Requested Visits Authorized [id number] Authorized 11/14/2023 11/13/2024 1 1 Reason Onset Date Comments Dentist 07/08/2024 Reason Comments Pain Reason Comments Pre-op Clearance Lumbar fusion-Dr. Mondragon-Scheduled 02/24 Specialty Diagnoses / Procedures Referred By Joanthan t Referred To Contact Diagnoses Arteriosclerosis of coronary artery Pre-operative cardiovascular examination Procedures ECG 12 Lead Marisol Connors MD [address] [facility], [address] [place] [address] Phone: tel: fax: Referral ID Status Reason Start Date Expiration Date V isits Requested Visits Authorized [id number] Authorized 01/28/2025 01/28/2026 1 1 Goals (unrecognized section and content) Goals may [...] BE BASED ON THE PRIMARY CLINICAL RECORDS. [email or web address] provides no warranty or guarantee of the accuracy or completeness of information in this document.
--- NOTE | 2025-02-04 08:15 | ECG_ITS ---
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 Measurements Intervals [place] Rate: 80 P: 62 NM: 180 QRS: 45 QRSD: 101 T: 46 QT: 366 QTc: 424 Interpretive Statements SINUS RHYTHM NONSPECIFIC T-WAVE ABNORMALITY Compared to ECG 01/26/2025 10:59:45 Prior ECG artifact precludes accurate comparison Electronically Signed On 02-04-2025 17:22:43 EDT by ANDREW CHAPMAN M.D.
== END 2025-02-04 07:52 | disposition home or self-care (01) ==
LOC: CT 07:51
PROVIDERS: PCP Internal Medicine; Visit Provider Internal Medicine
DX: Z01.810 Encounter for preprocedural cardiovascular examination (principal); R91.1 Solitary pulmonary nodule; I25.10 Atherosclerotic heart disease of native coronary artery without angina pectoris
CPT/HCPCS: 71250; 93005

== ENCOUNTER 2025-04-20 14:41 | Inpatient (IN) | payer MEDICARE, SELFPAY ==
[2025-04-20] VITALS (24 sets, daily range): BP systolic 132–164; BP diastolic 72–84; PULSE 62–77; TEMP 36.3–36.6; O2SAT 92–97; BMI 31.2; BMI 28.7
--- OUTSIDE RECORDS SUMMARY | 2025-04-20 14:47 | XMS_ITS | Encounter Summary ---
Author Organization [facility] Address [address] [facility] [place] [address] Care Team Providers Care Learning And Development Analyst Name Role Phone Devang Keyes DO Primary Care Provider [phone] Encounter Details Date Type Department Care Team (Late st Contact Info) Description 05/27/2024 Clinisync Result Encounter [facility] Unsolicited Fatoumata Montes, PA [address] [facility] [address] [place] [address] Social History Tobacco Use Types Packs/Day Years Used Date Smoking Tobacco: Never Smokeless Tobacco: Never Alcohol Use Standard Drinks/Week Comments Yes 0 (1 standard drink = 0.6 oz pur e alcohol) caffeine 2-3 cups/day Sex and Gender Information Value Date Recorded Sex Assigned at Not on file Legal Sex Male 6:47 PM EDT Gender Identity Not on file Sexual Orientation Not on file documented as of this encounter Plan of Treatment Upcoming Encounters Date Type Department Care Team (Late st Contact Info) Description 09/04/2025 9:15 AM EDT Office Visit [facility] [address] [place] [address] Adolph Schultz DO [address] [place] [address] 11/11/2025 10:15 AM EST Office Visit [facility] [address] [place] [address] Jr. Perry Garay DO [address] [place] [address] documented as of this encounter Procedures Procedure Name Priority Date/Time Associated Diagnosis Comments MR CERVICAL SPINE WO CONTRAST 05/27/2024 4:01 PM EDT documented in this encounter Results * MR cervical spine wo contrast (05/27/2024 4:01 PM EDT) Anatomical Region Laterality Modality Spine, C-spine Magnetic Resonan ce 05/27/2024 4:01 PM EDT Narrative 05/27/2024 4:04 PM EDT [address] [address] Magnetic Resonance Report Signed Patient: EDVIN ROLAND MR#: [id number] : 1945 Acct:[id number] Age/Sex: 78 / M ADM Date: 05/27/24 Loc: MRI Attending Dr: Fatoumata BOTELLO Ordering Physician: Fatoumata Montes Date of Service: 05/27/24 Procedure(s): MR cervical spine wo con Accession Number(s): [id number] cc: Devang Keyes D.O.; Fatoumata Montes [address] [address] Patient Name: EDVIN ROLAND MRN: [id number] date: 1945 Sex: M Assigned Patient Location: MRI Current Patient Location: MRI Accession/Order Number: [id number] Exam Date: 05/27/2024 08:00 Report Date: 05/27/2024 16:01 At the request of: FATOUMATA MONTES Procedure: MR cervical spine wo con EXAMINATION: MR cervical spine wo con HISTORY: Cervical Arthritis With Myelopathy M47.12 ; neck pain COMPARISON: No relevant comparison available. TECHNIQUE: A variety of imaging planes and parameters were utilized for visualization of suspected pathology without and/or with intravenous Dotarem contrast based on examination type. FINDINGS: CRANIOCERVICAL AREA: Normal foramen magnum with no Chiari malformation. PARASPINAL AREA: Normal with no visible mass. BONES: 3 mm anterolisthesis of C6 on 7. CORD: Normal caliber, contour, and signal intensity. CERVICAL DISC LEVELS: C2-C3: Moderate left foramen narrowing secondary to mild diffuse disc bulging, uncovertebral joint spurring, and moderate degenerative facet arthropathy. C3-C4: Marked right, moderate left foramen narrowing. Mild central canal narrowing. Mild diffuse disc bulging, uncovertebral joint spurring, right greater than left, mild degenerative facet arthropathy, right greater than left. C4-C5: Marked right, moderate left foramen narrowing. Mild central canal narrowing. Mild diffuse disc bulging, uncovertebral joint spurring, and moderate degenerative facet arthropathy, right greater than left. C5-C6: Moderate central canal and mild-moderate foramen narrowing bilaterally. Mild diffuse disc bulging with small posterior broad-based disc protrusion. No significant disc height reduction. Mild degenerative facet arthropathy, right greater than left. C6-C7: Mild grade 1 anterolisthesis of C6 on 7. Moderate central canal narrowing and left foramen narrowing. Mild right foramen narrowing. Mild posterior central disc bulging. Uncovertebral joint spurring and mild degenerative facet arthropathy. C7-T1:. Early degenerative disc disease is present without focal protrusion or neural impingement. MR/MR cervical spine wo con IMPRESSION: 1. Multilevel moderate to marked foramen narrowing and a few levels with moderate central canal narrowing secondary to the combination of mild to moderate disc bulging, uncovertebral joint spurring, and moderate facet arthropathy. Electronically authenticated by: BRIJESH CAMERON Date: 05/27/2024 16:01 Dictated By: Brijesh Cameron M.D. Signed By: 05/27/24 1604 DD/ 1601 TD/TT: Tape Calender: Procedure Note Radiology, Radiologist, MD - 05/27/2024 [place] [address] Magnetic Resonance Report Signed Patient: EDVIN ROLAND LMR#: [id number] : 6Acct:[id number] Age/Sex: 78 / MADM Date: 05/27/24 Loc: MRI Attending Dr: Fatoumata BOTELLO Ordering Physician: Fatoumata Montes Date of Service: 05/27/24 Procedure(s): MR cervical spine wo con Accession Number(s): [id number] cc: Devang Keyes D.O.; Fatoumata Montes [place] [address] Patient Name: EDVIN ROLAND MRN: [id number] date: 1945 Sex: M Assigned Patient Location: MRI Current Patient Location: MRI Accession/Order Number: [id number] Exam Date: 05/27/2024 08:00 Report Date: 05/27/2024 16:01 At the request of: FATOUMATA MONTES Procedure: MR cervical spine wo con EXAMINATION: MR cervical spine wo con HISTORY: Cervical Arthritis With Myelopathy M47.12 ; neck pain COMPARISON: No relevant comparison available. TECHNIQUE: A variety of imaging planes and parameters were utilized for visualization of suspected pathology without and/or with intravenousDotarem contrast based on examination type. FINDINGS: CRANIOCERVICAL AREA: Normal foramen magnum with no Chiari malformation. PARASPINAL AREA: Normal with no visible mass. BONES: 3 mm anterolisthesis of C6 on 7. CORD: Normal caliber, contour, and signal intensity. CERVICAL DISC LEVELS: C2-C3: Moderate left foramen narrowing secondary to mild diffuse discbulging, uncovertebral joint spurring, and moderate degenerative facet arthropathy. C3-C4: Marked right, moderate left foramen narrowing. Mild central canal narrowing. Mild diffuse disc bulging, uncovertebral joint spurring, right greater than left, mild degenerative facet arthropathy, right greater than left. C4-C5: Marked right, moderate left foramen narrowing. Mild central canal narrowing. Mild diffuse disc bulging, uncovertebral joint spurring, and moderate degenerative facet arthropathy, right greater than left. C5-C6: Moderate central canal and mild-moderate foramen narrowingbilaterally. Mild diffuse disc bulging with small posterior broad-based discprotrusion. No significant disc height reduction. Mild degenerative facet arthropathy,right greater than left. C6-C7: Mild grade 1 anterolisthesis of C6 on 7. Moderate central canal narrowing and left foramen narrowing. Mild right foramen narrowing. Mild posterior central disc bulging. Uncovertebral joint spurring and mild degenerative facet arthropathy. C7-T1:. Early degenerative disc disease is present without focalprotrusion or neural impingement. MR/MR cervical spine wo con IMPRESSION: 1. Multilevel moderate to marked foramen narrowing and a few levels with moderate central canal narrowing secondary to the combination of mild to moderate disc bulging, uncovertebral joint spurring, and moderate facet arthropathy. Electronically authenticated by: BRIJESH CAMERON Date: 05/27/2024 16:01 Dictated By: Brijesh Cameron M.D. Signed By:05/27/24 1604 DD/ 1601 TD/TT: Tape Calender: us Fatoumata BOTELLO IMG MRI PROCEDURES Final Resu lt documented in this encounter Visit Diagnoses Not on filedocumented in this encounter Care Teams Learning And Development Analyst Relationship Specialty Start Date End Date Devang Keyes DO PCP - General Internal Medicine 02/25/24 documented as of this encounter
--- OUTSIDE RECORDS SUMMARY | 2025-04-20 14:47 | XMS_ITS | Encounter Summary ---
Author Organization [facility] Address [address] [place] [address] Phone Care Team Providers Care Identification Clerk Name Role Phone Devang Keyes DO Primary Care Provider [phone] Devang Keyes DO Primary Care Provider [phone] Anita Schmid MD Unavailable [phone] Encounter Details Date Type Department Care Team (Late st Contact Info) Description 02/15/2022 Orders Only [facility] [address] [place] [address] Conversion, Onbase Social History Tobacco Use Types Packs/Day Years Used Date Smoking Tobacco: Never Assessed Sex and Gender Information Value Date Recorded Sex Assigned at Not on file Legal Sex Male 9:35 AM EST Gender Identity Not on file Sexual Orientation Not on file documented as of this encounter Plan of Treatment Upcoming Encounters Date Type Department Care Team (Late st Contact Info) Description 06/17/2025 9:30 AM EDT Office Visit [facility] [address] [facility] [address] [place] [address] Marisol Alas MD [address] [facility] [address] [place], [place] [id number] Scheduled Orders Name Type Priority Associated Diagnoses Orde r Schedule OUTSIDE LAB SCAN Lab Ordered: 02/15/2022 documented as of this encounter Visit Diagnoses Not on filedocumented in this encounter Care Teams Identification Clerk Relationship Specialty Start Date End Date Devang Keyes DO PCP - General 11/05/99 11/13/23 Devang Keyes DO PCP - General Internal Medicine 11/14/23 Anita Schmid MD [address] [place] [address] Referring Physician 01/28/25 documented as of this encounter
--- OUTSIDE RECORDS SUMMARY | 2025-04-20 14:47 | XMS_ITS | Encounter Summary ---
Author Organization [facility] Address [address] [place] [address] Phone Care Team Providers Care Lock And Dam Operator Name Role Phone Devang Keyes DO Primary Care Provider [phone] Anita Schmid MD Unavailable [phone] Encounter Details Date Type Department Care Team (Late st Contact Info) Description 04/29/2024 Scanned Document [facility] [address] [place] [id number] Scanning, Generic Provider Social History Tobacco Use Types Packs/Day Years Used Date Smoking Tobacco: Former Cigarettes Smokeless Tobacco: Never Alcohol Use Standard Drinks/Week Comments Not Currently 7 (1 standard drink = 0.6 oz pur e alcohol) Sex and Gender Information Value Date Recorded Sex Assigned at Not on file Legal Sex Male 9:35 AM EST Gender Identity Not on file Sexual Orientation Not on file documented as of this encounter Plan of Treatment Upcoming Encounters Date Type Department Care Team (Late st Contact Info) Description 06/17/2025 9:30 AM EDT Office Visit [facility] [address] [facility] [address] [place] [address] Marisol Alas MD [address] [facility] [address] [place] [address] documented as of this encounter Visit Diagnoses Not on filedocumented in this encounter Additional Health Concerns Assessment Noted Time A fall risk assessment has been complete d for the patient 11/14/2023 10:31 AM EST documented as of this encounter Care Teams Lock And Dam Operator Relationship Specialty Start Date End Date Devang Keyes DO PCP - General Internal Medicine 11/14/23 Anita Schmid MD [address] [place] [address] Referring Physician 01/28/25 documented as of this encounter
--- OUTSIDE RECORDS SUMMARY | 2025-04-20 14:47 | XMS_ITS | Clinical Summary ---
Author Organization [facility] Address [address] [place] [address] Care Team Providers Care Meat Products Demonstrator Name Role Phone Devang Keyes DO Primary Care Provider [phone] Allergies Active Allergy Reactions Criticality Noted Date Comments Oxycodone 04/11/2018 Hallucinations Medications aspirin 81 MG EC tablet Take 81 mg by mouth daily Active trospium (SANCTURA) 60 MG CP24 extended release capsule Take 60 mg by mouth daily 2 03/24/2018 Active pravastatin (PRAVACHOL) 80 MG tablet Take 80 mg by mouth daily 3 03/06/2018 Active amLODIPine (NORVASC) 5 MG tablet Take 5 mg by mouth daily 3 02/27/2018 Active hydrochlorothia zide (HYDRODIURIL) 25 MG tablet Take 25 mg by mouth daily 3 03/06/2018 Active gabapentin (NEURONTIN) 100 MG capsule Take 1 capsule by mouth daily for 30 days.. 90 capsule 05/31/2018 Active gabapentin (NEURONTIN) 400 MG capsuleIndicati ons:Lumbar radiculopathy,L umbar spondylosis,Lum bar disc herniation,S/P lumbar fusion Take 1 capsule by mouth 3 times daily for 60 days.. 90 capsule 1 12/11/2018 Active ibuprofen (ADVIL;MOTRIN) 800 MG tablet TAKE 1 TABLET BY MOUTH TWICE A DAY 90 tablet 3 04/30/2019 Active Active Problems Problem Noted Date Diagnosed Date Lumbar spondylosis 04/11/2018 HTN (hypertension) 04/10/2018 Hyperlipemia 04/10/2018 HNP (herniated nucleus pulposus), lumbar 018 BPH (benign prostatic hyperplasia) 04/10/2018 Resolved Problems Problem Noted Date Diagnosed Date Resolved Date Spondylosis of lumbar spine 04/10/2018 09/07/2020 Family History Medical History Relation Name Comments Mult Sclerosis Daughter x 2 both daughter s have MS Cancer Father brain cancer Diabetes Mother Cancer Sister x 4 bone cancer Heart Disease Sister x 4 Relation Name Status Comments Brother none Daughter x 2 Alive Father Mother Sister x 4 Alive Son none Social History Tobacco Use Types Packs/Day Years Used Date Smoking Tobacco: Never Smokeless Tobacco: Never Alcohol Use Standard Drinks/Week Comments Yes 0 (1 standard drink = 0.6 oz pur e alcohol) daily / rum Sex and Gender Information Value Date Recorded Sex Assigned at Not on file Legal Sex Male 2:56 PM EDT Gender Identity Not on file Sexual Orientation Not on file Last Filed Vital Signs Vital Sign Reading Time Taken Comments Blood Pressure 135/77 04/13/2018 7:51 AM EDT Pulse 66 04/13/2018 7:51 AM EDT Temperature 36.7 C (98.1 F) 12/27/2018 10:03 AM EST Respiratory Rate 16 11/08/2018 11:14 AM EST Oxygen Saturation 97% 04/13/2018 7:51 AM EDT Inhaled Oxygen Concentration - - Weight 113.4 kg (250 lb) 12/27/2018 10:03 AM EST Height 193 cm (6' 4 ) 12/27/2018 10:03 AM EST Body Mass Index 30.43 12/27/2018 10:03 AM EST Plan of Treatment Not on file Medical Devices Implanted Type Area Violin Maker Hand Device Identifier Shelf Expiration Date Model / Serial / Lot Kit Sealant Surgiflo Hemostatic Matrix Implanted:Qty: 1 on 04/11/2018 by Ang Rocha MD at [facility] Bone/[place] t/Tissue/ Human/Syn th N/A: Back [place]: [employer]-PMM [id number] / / Graft Canc Chip 30cc [id number] - [id number] Implanted:Qty: 1 on 04/11/2018 by Ang Rocha MD at [facility] Bone/Gale t/Tissue/ Human/Syn th N/A: Back MUSCULOSKELETAL TRANSPLANT FND-PMM 12/22/2020 [id number] / [id number] / Screw Polyaxial Reline-O 6.5x50mm Implanted:Qty: 2 on 04/11/2018 by Ang Rocha MD at [facility] Screw/Caroline te/Nail/R od N/A: Back [employer]-PMM [id number] / / Screw Polyaxial Reline-O 2s 6.5x55mm Implanted:Qty: 4 on 04/11/2018 by Ang Rocha MD at [facility] Screw/Caroline te/Nail/R od N/A: Back [employer]-PMM [id number] / / Edwin-Cellular Bone Matrix 10cc - [id number] Implanted:Qty: 1 on 04/11/2018 by Ang Rocha MD at [facility] Spine N/A: Back [employer]-PMM 12/14/2022 [id number] / [id number] / Screw Lk Reline Opn Tulip 5.5mm Implanted:Qty: 6 on 04/11/2018 by Ang Rocha MD at [facility] Spine N/A: Back [employer]-PMM [id number] / / Impl Spine Rick Reline-O 5.5x75mm Implanted:Qty: 2 on 04/11/2018 by Ang Rocha MD at [facility] Spine N/A: Back [employer]-PMM [id number] / / Connector Reline-O X C 45-65mm 5.5 Lp Ad Implanted:Qty: 1 on 04/11/2018 by Ang Rocha MD at [facility] Spine N/A: Back [employer]-PMM [id number] / / Coroent Large Mp Implanted:Qty: 1 on 04/11/2018 by Ang Rocha MD at [facility] N/A: Back / [id number] / Insurance AETNA MEDICARE AETNA MEDICARE Advance Directives * Full Code (Latest Code Status on File) Date Activated Date Inactivated Comments 04/11/2018 2:52 PM 04/13/2018 2:05 PM Care Teams Meat Products Demonstrator Relationship Specialty Start Date End Date Devang Keyes DO PCP - General Internal Medicine 02/15/18
--- OUTSIDE RECORDS SUMMARY | 2025-04-20 14:47 | XMS_ITS | Clinical Summary ---
Author Organization [facility] Address [address] [place] [address] Care Team Providers Care Yarding Supervisor Name Role Phone Devang Keyes DO Primary Care Provider Allergies Active Allergy Reactions Criticality Noted Date Comments Duloxetine Hcl Hallucinations 07/15/2024 Hydrocodone-Acetaminop hen Hallucinations 10/12/2023 Oxycodone 03/12/2023 Other Reaction(s): Hallucinations Medications Potassium 75 MG tablet Potassium Active allopurinol (Zyloprim) 300 MG tablet 1 (one) time each day at the same time. Active amLODIPine (Norvasc) 5 MG tablet 1 (one) time each day at the same time. Active Ascorbic Acid (Vitamin C) 500 MG capsule as directed Orally Active aspirin 81 MG chewable tablet 1 (one) time each day at the same time. Active atorvastatin (Lipitor) 40 MG tablet 1 (one) time each day at the same time. Active calcium carbonate 1500 (600 Ca) MG tablet 1 (one) time each day at the same time. Active hydroCHLOROthia zide (HYDRODiuril) 25 MG tablet 1 (one) time each day at the same time. Active Lutein-Zeaxanth in 25-5 MG capsule Orally Active trospium (Sanctura) 20 MG tablet every 12 (twelve) hours. Active etodolac (Lodine) 500 MG tablet Every 12 hours Active losartan (Cozaar) 25 MG tablet Take by mouth Active amoxicillin (Amoxil) 500 MG tabletIndicatio ns:History of total right knee replacement 4 tabs PO once 30-60 mins before procedure with food 4 tablet 3 4 Active mirabegron ER (Myrbetriq) 50 MG 24 hr tablet Take 50 mg by mouth Daily 4 Active KLOR-CON 20 MEQ ER tablet 4 Active traMADol (Ultram) 50 MG tablet TAKE 1 TABLET BY MOUTH EVERY 8 HOURS NEEDED FOR POSTPROCEDURE PAIN FOR 5 DAYS 4 Active Active Problems Problem Noted Date Diagnosed Date Bilateral posterior capsular opacification 03/27 Dry eyes 03/27/2025 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 EMG of the BLE revealed a severe polyneuropathy. LUCIO positive. Myoglobin elevated at 274.8. Has trended down to 146. CK 291 on most recent lab draw. CSF cell count normal. Protein elevated in CSF. He has noted increase in pins and needles to the bottom of his feet which is intermittent. He is using a cane now versus a walker. He has taken gabapentin in the past with side effects. He is being treated for gout and his symptoms are overall improving. Arthritis of finger of left hand 03/12/2023 Artificial knee joint present 03/12/2023 Bilateral pseudophakia 03/12/2023 Dermatochalasis of left upper eyelid 03/12/2023 Difficulty walking 03/12/2023 Excess skin of eyelid 03/12/2023 Osteoarthritis of finger of left hand 03/12/2023 Osteoarthritis of right knee 03/12/2023 Finger pain, right 03/12/2023 Pain of finger of left hand 03/12/2023 Poor balance 03/12/2023 Shoulder arthritis 03/12/2023 Internal derangement of right shoulder 3 Sprain of right rotator cuff capsule 03/12/2023 Status post total right knee replacement 023 Encounters Date Type Department Care Team Description 04/01/2025 Orders Only [facility] [address] [place] [address] Adolph Schultz DO Age-related nuclear cataract of both eyes; Bilateral posterior capsular opacification 03/27/2025 8:15 AM EDT Office Visit [facility] [address] [place] [address] Adolph Schultz DO Bilateral posterior capsular opacification (Primary Dx); Dry eyes; Optic atrophy; Blepharitis of upper and lower eyelids of both eyes, unspecified type 03/27/2025 Bamboo flowsheet [facility] [address] [place] [address] Adolph Schultz DO 03/27/2025 Travel from Last 3 Months Immunizations Immunization Administration Dates Next Due Influenza, High-dose Seasona l, Quadrivalent, Preservative Free 07/01/2021 Influenza, injectable, quadrivalent, preservativ e free 08/17/2017,08/05/2016 Pfizer Purple Cap SARS-CoV-2 Vaccination 021 Pneumococcal Conjugate PCV 13 08/24/2017 Pneumococcal Polysaccharide PPSV23 07/06/2014 Family History Medical History Relation Name Comments Brain cancer Father Diabetes Mother Relation Name Status Comments Father Mother Social History Tobacco Use Types Packs/Day Years Used Date Smoking Tobacco: Former Cigarettes Smokeless Tobacco: Never Tobacco Cessation:Counseling Given: Not Answered Alcohol Use Standard Drinks/Week Comments Yes 0 (1 standard drink = 0.6 oz pur e alcohol) caffeine 2-3 cups/day Sex and Gender Information Value Date Recorded Sex Assigned at Not on file Legal Sex Male 6:47 PM EDT Gender Identity Not on file Sexual Orientation Not on file Last Filed Vital Signs Vital Sign Reading Time Taken Comments Blood Pressure 126/82 07/15/2024 8:47 AM EDT Pulse 72 07/15/2024 8:47 AM EDT Temperature - - Respiratory Rate - - Oxygen Saturation 98% 07/15/2024 8:47 AM EDT Inhaled Oxygen Concentration - - Weight 108 kg (237 lb) 07/15/2024 8:47 AM EDT Height 193 cm (6' 4 ) 07/15/2024 8:47 AM EDT Body Mass Index 28.85 07/15/2024 8:47 AM EDT Plan of Treatment Upcoming Encounters Date Type Department Care Team (Late st Contact Info) Description 09/04/2025 9:15 AM EDT Office Visit [facility] [address] [place] [id number] Adolph Schultz, DO [address] [place] [address] 11/11/2025 10:15 AM EST Office Visit [facility] [address] [place] [address] Jr. Perry Garay, DO [address] [place] [address] Health Maintenance Due Date Last Done Comments Pneumococcal Vaccine: 65+ Years Completed , 07/06/2014 Influenza Vaccine Completed 10/24/2024, , 08/14/2022, Additional history exists Insurance AETNA MEDICARE ADVANTAGE Care Teams Yarding Supervisor Relationship Specialty Start Date End Date Devang Keyes DO PCP - General Internal Medicine 02/25/24
--- OUTSIDE RECORDS SUMMARY | 2025-04-20 14:47 | XMS_ITS | Encounter Summary ---
Author Organization [facility] Address [address] [place] [address] Phone Care Team Providers Care Weapons Electrical Engineering Officer Name Role Phone Devang Keyes DO Primary Care Provider [phone] Devang Keyes DO Primary Care Provider [phone] Anita Schmid MD Unavailable [phone] Encounter Details Date Type Department Care Team (Late st Contact Info) Description 01/25/2022 Orders Only [facility] [address] [place] [place] [address] Conversion, Onbase Social History Tobacco Use Types [...] Description 06/17/2025 9:30 AM EDT Office Visit [facility] [address] [facility] [place] [phone] Marisol Alas MD [address] [place], [place] [id number] Scheduled Orders Name Type Priority Associated Diagnoses Orde r Schedule OUTSIDE LAB SCAN Lab Ordered: 01/25/2022 documented as of this encounter Visit Diagnoses Not on filedocumented in this encounter Care Teams Weapons Electrical Engineering Officer Relationship Specialty Start Date End Date Devang Keyes DO PCP - General 11/05/99 11/13/23 Devang Keyes DO PCP - General Internal Medicine 11/14/23 Anita Schmid MD [address] [place] [address] Referring Physician 01/28/25 documented as of this encounter
--- OUTSIDE RECORDS SUMMARY | 2025-04-20 14:47 | XMS_ITS | Encounter Summary ---
Author Organization [facility] Address [address] [place] [address] Phone Care Team Providers Care Dye Can Operator Name Role Phone Devang Keyes DO Primary Care Provider [phone] Devang Keyes DO Primary Care Provider [phone] Anita Schmid MD Unavailable [phone] Encounter Details Date Type Department Care Team (Late st Contact Info) Description 03/14/2023 Orders Only [facility] [address] [place] [address] Conversion, Onbase Social History Tobacco Use Types [...] Description 06/17/2025 9:30 AM EDT Office Visit [facility] [address] [facility] [address] [place] [address] Marisol Alas MD [address] [facility] [address] [place], [place] [phone] Scheduled Orders Name Type Priority Associated Diagnoses Orde r Schedule OUTSIDE LAB SCAN Lab Ordered: 03/14/2023 documented as of this encounter Visit Diagnoses Not on filedocumented in this encounter Care Teams Dye Can Operator Relationship Specialty Start Date End Date Devang Keyes DO PCP - General 11/05/99 11/13/23 Devang Keyes DO PCP - General Internal Medicine 11/14/23 Anita Schmid MD [address] [place] [address] Referring Physician 01/28/25 documented as of this encounter
--- OUTSIDE RECORDS SUMMARY | 2025-04-20 14:47 | XMS_ITS | Clinical Summary ---
Author Organization [facility] Address [address] [place] [address] Phone Care Team Providers Care Installation Specialist Name Role Phone Devang Keyes Primary Care Provider [phone] Anita Schmid MD Unavailable [phone] Allergies Active Allergy Reactions Criticality Noted Date Comments Hydrocodone-Acetaminophen Hallucinations 2022 Oxycodone Hallucinations 10/12/2023 Medications atorvastatin (Lipitor) 40 mg tabletIndication s:Hyperlipidemia , unspecified TAKE 1 TABLET BY MOUTH EVERY DAY 90 tablet 3 10/12/2023 Active allopurinol (Zyloprim) 300 mg tablet Take 1 tablet (300 mg) by mouth once daily. 05/08/2021 Active ascorbic acid (Vitamin C) 1,000 mg tablet Take 1 tablet (1,000 mg) by mouth once daily. Active aspirin 81 mg chewable tablet Chew 1 tablet (81 mg) once daily. Active calcium carbonate 600 mg calcium (1,500 mg) tablet every 12 hours. Active cyanocobalamin, vitamin B-12, (Vitamin B-12) 1,000 mcg tablet extended release Take 1 tablet (1,000 mcg) by mouth once daily. Active hydroCHLOROthiaz lexis (HYDRODiuril) 25 mg tablet Take 1 tablet (25 mg) by mouth once daily. 01/10/2022 Active LUTEIN-ZEAXANTHI N ORAL Take 1 capsule by mouth once daily. Active Klor-Con M20 20 mEq ER tabletIndication s:Hypokalemia TAKE 1 TABLET BY MOUTH EVERY DAY 90 tablet 3 03/05/2024 Active etodolac (Lodine) 500 mg tablet Take 1 tablet (500 mg) by mouth every 12 hours. Active losartan (Cozaar) 25 mg tablet Take 1 tablet (25 mg) by mouth once daily. Active amLODIPine (Norvasc) 5 mg tablet Take 1 tablet (5 mg) by mouth 2 times a day. Active nitroglycerin (Nitrostat) 0.4 mg SL tabletIndication s:Arterioscleros is of coronary artery Place 1 tablet (0.4 mg) under the tongue every 5 minutes if needed for chest pain. 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 Joint pain 10/12/2023 Physical deconditioning 10/12/2023 Status post coronary angioplasty 10/12/2023 Encounters Date Type Department Care Team Description 01/28/2025 10:30 AM EDT Office Visit [address] [address] Marisol Alas MD Pre-operative cardiovascular examination (Primary Dx); Arteriosclerosis of coronary artery; Essential hypertension; Dyslipidemia; Status post coronary angioplasty; Former smoker; BMI 34.0-34.9,adult; Obesity, Class I, BMI 30-34.9 01/28/2025 Travel from Last 3 Months Family History Medical History Relation Name Comments Cancer Father Diabetes Mother Heart disease Sister Relation Name Status Comments Father Mother Sister Social History Tobacco Use Types Packs/Day Years Used Date Smoking Tobacco: Former Cigarettes Smokeless Tobacco: Never Alcohol Use Standard Drinks/Week Comments Yes 7 (1 standard drink = 0.6 oz pur e alcohol) Sex and Gender Information Value Date Recorded Sex Assigned at Not on file Legal Sex Male 9:35 AM EST Gender Identity Not on file Sexual Orientation Not on file Last Filed Vital Signs Vital Sign Reading Time Taken Comments Blood Pressure 130/70 01/28/2025 11:06 AM EDT Pulse 70 01/28/2025 10:36 AM EDT Temperature - - Respiratory Rate 16 01/01/2023 12:00 AM EST Oxygen Saturation - - Inhaled Oxygen Concentration - - Weight 114 kg (251 lb) 01/28/2025 10:36 AM EDT Height 182.9 cm (6') 01/28/2025 10:36 AM EDT Body Mass Index 34.04 01/28/2025 10:36 AM EDT Plan of Treatment Upcoming Encounters Date Type Department Care Team (Late st Contact Info) Description 06/17/2025 9:30 AM EDT Office Visit [facility] [address] [address] Marisol Alas MD [address] [facility] [address] [place] [address] Health Maintenance Due Date Last Done Comments Lipid Panel 1945 Hepatitis C Screening 1964 Zoster Vaccines (1 of 2) 1996 Diabetes Screening 07/27/2021 07/27/2020 RSV High Risk: (Elderly (60+) or Population) (1 - 1-dose 75+ series) 2021 COVID-19 Vaccine (2 - season) 2024 08/27/2022 Medicare Annual Wellness Visit (AWV) 04/29/2025 04/28/2024, 04/30/2023, 04/27/2022 DTaP/Tdap/Td Vaccines (3 - Td or Tdap) 05/02/2034 05/02/2024, 11/08/2020 Pneumococcal Vaccine Completed 08/24/2017, 11/05/2016, 07/06/2014 Influenza Vaccine Completed 10/24/2024, , 08/14/2022, Additional history exists HIB Vaccines Aged Out No longer eligi ble based on patient's age to complete this topic HPV Vaccines Aged Out No longer eligi ble based on patient's age to complete this topic Hepatitis A Vaccines Aged Out No long er eligible based on patient's age to complete this topic Hepatitis B Vaccines Aged Out No long er eligible based on patient's age to complete this topic IPV Vaccines Aged Out No longer eligi ble based on patient's age to complete this topic Meningococcal Vaccine Aged Out No jodie bri eligible based on patient's age to complete this topic Rotavirus Vaccines Aged Out No longer eligible based on patient's age to complete this topic Procedures Procedure Name Priority Date/Time Associated Diagnosis Comments ECG 12-LEAD Routine 01/28/2025 10:30 AM EDT Arteriosclerosis of coronary artery Pre-operative cardiovascular examination from Last 3 Months Results * ECG 12 Lead (01/28/2025 10:30 AM EDT) Narrative CPACS - 01/28/2025 12:29 PM EDT Normal sinus rhythm, nonspecific ST and T changes, borderline ECG us Marisol Alas MD ECG ORDERABLES Final Result CPACS from Last 3 Months Insurance AETNA MEDICARE ASSURE Care Teams Installation Specialist Relationship Specialty Start Date End Date Devang Keyes DO PCP - General Internal Medicine 11/14/23 Anita Schmid MD [address] [place] [address] [address] [place] [address] Referring Physician 01/28/25
--- OUTSIDE RECORDS SUMMARY | 2025-04-20 14:47 | XMS_ITS | Encounter Summary ---
Author Organization [facility] Address [address] [place] [address] Care Team Providers Care Fashion Show Director Name Role Phone Devang Keyes Primary Care Provider [phone] Source Comments In the event this information is protected by the Federal Confidentiality of Alcohol and Drug AbusePatient Records regulations: The Federal rules restrict any use of the information to criminally investigate or prosecute any alcohol or drug abuse patient.[facility] Encounter Details Date Type Department Care Team (Late st Contact Info) Description 05/05/2020 Patient [facility] [address] [id number] Orestes Moreland MD [address] [place], [place] [phone] RE:Test Results Social History Tobacco Use Types Packs/Day Years Used Date Smoking Tobacco: Former Smokeless Tobacco: Never Alcohol Use Standard Drinks/Week Comments Not Currently 0 (1 standard drink = 0.6 oz pur e alcohol) PHQ-2 Answer Date Recorded PHQ-2 Score 0 04/16/2020 Sex and Gender Information Value Date Recorded Sex Assigned at Not on file Legal Sex Male 11:52 AM EDT Gender Identity Not on file Sexual Orientation Not on file COVID-19 Exposure Response Date Recorded In the last month, have you been in contact with someone who was confirmed or suspected to have Coronavirus / COVID-19? No / Unsure 04/26/2020 8:10 AM EDT documented as of this encounter Plan of Treatment Not on file documented as of this encounter Visit Diagnoses Not on filedocumented in this encounter Care Teams Fashion Show Director Relationship Specialty Start Date End Date Devang Keyes DO PCP - General Internal Medicine 07/19/15 documented as of this encounter
--- OUTSIDE RECORDS SUMMARY | 2025-04-20 14:47 | XMS_ITS | Encounter Summary ---
Author Organization [facility] Address [id number] [address] [place] [address] Care Team Providers Care Optics Test Technician Name Role Phone Devang Keyes DO Primary Care Provider [phone] Encounter Details Date Type Department Care Team (Late st Contact Info) Description 03/05/2025 Orders Only [facility] [address] [place] [phone] Transcribe, Orders Support User Pain (Primary Dx) Social History Tobacco Use Types Packs/Day Years Used Date Smoking Tobacco: Former Cigarettes Smokeless Tobacco: Never Alcohol Use Standard Drinks/Week Comments Yes 0 (1 standard drink = 0.6 oz pur e alcohol) daily Sex and Gender Information Value Date Recorded Sex Assigned at Not on file Legal Sex Male 1:02 PM EST Gender Identity Male 10/24/2023 7:17 PM EST Sexual Orientation Straight 10/24/2023 7: 17 PM EST documented as of this encounter Plan of Treatment Not on file documented as of this encounter Goals Goal Patient Goal Type Associated Problems Recent Progress Patient-Stated? Author Home General Yes Yolie Ty LSW Note: Evaluation of progress towards goal: Safe dc transition home with family support and [facility]. documented as of this encounter Results * CT brain without contrast (03/02/2025 8:10 AM EDT) us Scanning Provider External IMG CT ORDERABLES Fin al Result documented in this encounter Visit Diagnoses Diagnosis Pain- Primary Generalized pain documented in this encounter Care Teams Optics Test Technician Relationship Specialty Start Date End Date Devang Keyes DO [address] [place] [address] PCP - General Internal Medicine 01/27/22 documented as of this encounter
--- OUTSIDE RECORDS SUMMARY | 2025-04-20 14:47 | XMS_ITS | Encounter Summary ---
Author Organization [facility] Address [address] [place] [address] Phone Care Team Providers Care Hand Stamper Name Role Phone Devang Keyes DO Primary Care Provider [phone] Anita Schmid MD Unavailable [phone] Encounter Details Date Type Department Care Team (Late st Contact Info) Description 12/24/2023 Scanned Document [facility] [address] [place] [id number] Scanning, Generic Provider Social History Tobacco Use [...] Description 06/17/2025 9:30 AM EDT Office Visit [facility] [address] [facility] [address] [place] [address] Marisol Alas MD [address] [facility] [address] [place] [address] documented as of this encounter Visit Diagnoses Not on filedocumented in this encounter Additional Health Concerns Assessment Noted Time A fall risk assessment has been complete d for the patient 11/14/2023 10:31 AM EST documented as of this encounter Care Teams Hand Stamper Relationship Specialty Start Date End Date Devang Keyes DO PCP - General Internal Medicine 11/14/23 Anita Schmid MD [address] [place] [address] Referring Physician 01/28/25 documented as of this encounter
--- OUTSIDE RECORDS SUMMARY | 2025-04-20 14:47 | XMS_ITS | Encounter Summary ---
Author Organization [facility] Address [address] [place] [address] Phone Care Team Providers Care Christian Science Reader Name Role Phone Devang Keyes DO Primary Care Provider [phone] Devang Keyes DO Primary Care Provider [phone] Anita Schmid MD Unavailable [phone] Encounter Details Date Type Department Care Team (Late st Contact Info) Description 10/20/2020 Orders Only [facility] [address] [place] [address] Conversion, Onbase Social History Tobacco Use Types [...] Description 06/17/2025 9:30 AM EDT Office Visit [facility] [address] [facility] [address] [place] [address] Marisol Alas MD [address] [facility] [address] [place], [place] [phone] Scheduled Orders Name Type Priority Associated Diagnoses Orde r Schedule OUTSIDE LAB SCAN Lab Ordered: 10/20/2020 documented as of this encounter Visit Diagnoses Not on filedocumented in this encounter Care Teams Christian Science Reader Relationship Specialty Start Date End Date Devang Keyes DO PCP - General 11/05/99 11/13/23 Devang Keyes DO PCP - General Internal Medicine 11/14/23 Anita Schmid MD [address] [place] [address] Referring Physician 01/28/25 documented as of this encounter
--- OUTSIDE RECORDS SUMMARY | 2025-04-20 14:47 | XMS_ITS | Encounter Summary ---
Author Organization [facility] Address [address] [place] [address] Phone Care Team Providers Care Hepatologist Name Role Phone Devang Keyes DO Primary Care Provider [phone] Devang Keyes DO Primary Care Provider [phone] Anita Schmid MD Unavailable [phone] Encounter Details Date Type Department Care Team (Late st Contact Info) Description 09/27/2020 Orders Only [facility] [address] [place] [address] Conversion, Onbase Social History Tobacco Use Types [...] Description 06/17/2025 9:30 AM EDT Office Visit [facility] [address] [facility] [address] [place] [address] Marisol Alas MD [address]03 [facility] 2, [address] [place], [place] [phone] Scheduled Orders Name Type Priority Associated Diagnoses Orde r Schedule OUTSIDE LAB SCAN Lab Ordered: 09/27/2020 OUTSIDE LAB SCAN Lab Ordered: 09/27/2020 documented as of this encounter Visit Diagnoses Not on filedocumented in this encounter Care Teams Hepatologist Relationship Specialty Start Date End Date Devang Keyes DO PCP - General 11/05/99 11/13/23 Devang Keyes DO PCP - General Internal Medicine 11/14/23 Anita Schmid MD [address] [place] [address] Referring Physician 01/28/25 documented as of this encounter
--- OUTSIDE RECORDS SUMMARY | 2025-04-20 14:47 | XMS_ITS | Encounter Summary ---
Author Organization [facility] Address [address] [place] [address] Phone Care Team Providers Care Oil Producer Name Role Phone Devang Keyes DO Primary Care Provider [phone] Devang Keyes DO Primary Care Provider [phone] Anita Schmid MD Unavailable [phone] Encounter Details Date Type Department Care Team (Late st Contact Info) Description 04/26/2021 Orders Only [facility] [address] [place] [address] Conversion, Onbase Social History Tobacco Use Types [...] Description 06/17/2025 9:30 AM EDT Office Visit [facility] [address] [facility] [address] [place] [address] Marisol Alas MD [address] [facility] [address] [place], [place] [phone] Scheduled Orders Name Type Priority Associated Diagnoses Orde r Schedule OUTSIDE LAB SCAN Lab Ordered: 04/26/2021 documented as of this encounter Visit Diagnoses Not on filedocumented in this encounter Care Teams Oil Producer Relationship Specialty Start Date End Date Devang Keyes DO PCP - General 11/05/99 11/13/23 Devang Keyes DO PCP - General Internal Medicine 11/14/23 Anita Schmid MD [address] [place] [address] Referring Physician 01/28/25 documented as of this encounter
--- OUTSIDE RECORDS SUMMARY | 2025-04-20 14:47 | XMS_ITS | Clinical Summary ---
Author Organization [employer] Address [id number] [address] [place] [address] Care Team Providers Care Dining Room Coordinator Name Role Phone WaliDevang Iwona REYNA Primary Care Provider [phone] Allergies Active Allergy Reactions Criticality Noted Date Comments Oxycodone 01/27/2022 Not allergic but does not want this Medications amLODIPine (NORVASC) 2.5 mg tablet Take 5 mg by mouth in the morning. Active hydroCHLOROthia zide (HYDRODIURIL) 25 mg tablet Take 25 mg by mouth daily. Active calcium carbonate-vitam in D3 (CALCIUM 500 + D) 500 mg(1,250mg) -200 units per tablet Take 1 tablet by mouth in the morning and 1 tablet in the evening. Take with meals. Active LUTEIN-ZEAXANTH IN ORAL Take by mouth. Active atorvastatin (LIPITOR) 40 mg tablet Take 40 mg by mouth in the morning. Active allopurinoL (ZYLOPRIM) 300 mg tablet Take 300 mg by mouth in the morning. Active cyanocobalamin (vitamin B-12) 1000 MCG tablet Take 1,000 mcg by mouth in the morning. Active ascorbic acid, vitamin C, (VITAMIN C) 1000 mg tablet Take 1,000 mg by mouth in the morning. Active potassium chloride (KLOR-CON M) 20 MEQ CR tablet Take 20 mEq by mouth in the morning and 20 mEq before bedtime. Active mirabegron (MYRBETRIQ ORAL) Take by mouth. Active aspirin 81 mg Take 1 tablet (81 mg total) by mouth in the morning and 1 tablet (81 mg total) before bedtime. 28 tablet 02/13/2022 Active aspirin 81 mg Take 1 tablet (81 mg total) by mouth in the morning and 1 tablet (81 mg total) before bedtime. 60 tablet 02/15/2022 Active Active Problems Problem Noted Date Diagnosed Date Right knee pain 02/13/2022 Encounters Date Type Department Care Team Description 03/07/2025 Orders Only [facility] [address] [place] [phone] Transcribe, Orders Support User Pain (Primary Dx) 03/06/2025 7:20 AM EDT Ancillary Procedure [facility] [address] [place] [phone] Pain 03/05/2025 10:05 PM EDT Ancillary Procedure [facility] [address] [place] [phone] Pain 03/05/2025 Orders Only [facility] [address] [place] [phone] Transcribe, Orders Support User Pain (Primary Dx) 03/04/2025 12:18 PM EDT - 03/09/2025 7:31 AM EDT Emergency [facility] [address] [place] [phone] Discharge Disposition: Telemedicine Discharge 03/02/2025 10:45 AM EDT Ancillary Procedure [facility] [address] [place] [phone] Pain 03/02/2025 10:40 AM EDT Ancillary Procedure [facility] [address] [place] [phone] Pain 03/02/2025 8:10 AM EDT Ancillary Procedure [facility] [address] [place] [phone] Pain from Last 3 Months Immunizations Immunization Administration Dates Next Due COVID-19, mRNA, LNP-S, PF, 30mcg/0.3mL Dose 12/07 Social History Tobacco Use Types Packs/Day Years [...] Orientation Straight 10/24/2023 7: 17 PM EST Last Filed Vital Signs Vital Sign Reading Time Taken Comments Blood Pressure 123/76 02/15/2022 8:03 AM EDT Pulse 76 02/15/2022 8:03 AM EDT Temperature 36.6 C (97.8 F) 02/15/2022 8:03 AM EDT Respiratory Rate 18 02/15/2022 8:03 AM EDT Oxygen Saturation 93% 02/15/2022 8:03 AM EDT Inhaled Oxygen Concentration - - Weight 111.7 kg (246 lb 3.2 oz) 02/15/2022 4:34 AM EDT Height 193 cm (6' 4 ) 02/14/2022 5:07 PM EDT Body Mass Index 29.97 02/14/2022 5:07 PM EDT Plan of Treatment Health Maintenance Due Date Last Done Comments Depression Screening 1957 Tobacco Screening 1957 Zoster (Shingles) Vaccine (1 of 2) 1996 Fall Risk Screening 2011 COVID-19 Vaccine (5 - 2023-2 5 season) 2024 08/27/2022, 10/03/2021, 01/25/2021, Additional history exists Influenza Vaccine 07/06/2025 10/24/2024, , 08/14/2022, Additional history exists DTaP,Tdap and Td Vaccines (2 - Tdap) 11/08/2030 11/08/2020 Goals Goal Patient Goal Type Associated Problems Recent Progress Patient-Stated? Author Home General Yes Yolie Ty LSW Note: Evaluation of progress towards goal: Safe dc transition home with family support and [facility]. Medical Devices Implanted Type Area Document Scanner Device Identifier Shelf Expiration Date Model / Serial / Lot Cement Bn Bio 40gm Rpl [id number] - Sna - [id number] Implanted:Qt y: 2 on 02/14/2022 by Perry Garay Jr., DO at [facility] Cement Right: Knee [employer] [id number] 06/04/2024 [id number] / NA / [id number] Component Ptlr 38mm Persona Alply Kn Strl Lf - Sna - [id number] Implanted:Qt y: 1 on 02/14/2022 by Perry Garay Jr., DO at [facility] Orthopedic Implant Right: Knee [employer] [id number] 08/27/2029 [id number] / NA / [id number] Insert [facility] 7-10 G-H 12mm Kn Fx Brng Prlng Nxgn Lpsflx Strl Rpl [id number] + [id number] - Sna - [id number] Implanted:Qt y: 1 on 02/14/2022 by Perry Garay Jr., DO at [facility] Orthopedic Implant Right: Knee [employer] [id number] 01/06/202739-6580-033-1 2 / NA / [id number] Component Fem G Kn Rt Cmnt Nxgn Lpsflx Opt Zml Prlng Strl Rpl [id number] + [id number] - Sna - [id number] Implanted:Qt y: 1 on 02/14/2022 by Perry Garay Jr., DO at [facility] Orthopedic Implant Right: Knee [employer] [id number] 07/03/203055-7881-691-5 2 / NA / [id number] Plate Tib 47l80id Nxgn Kn Cmnt Mdlr Stm Prect 8 Tiv Pmma Rpl [id number] + [id number] - Sna - [id number] Implanted:Qt y: 1 on 02/14/2022 by Perry Garay Jr., DO at [facility] Plate Right: Knee [employer] [id number] 04/04/202827-[address]-433-0 2 / NA / [id number] Explanted Type Area Document Scanner Device Identifier Shelf Expiration Date Model / Serial / Lot Screw Bn 35mm 6.5mm St Hip Actb Trlg Strl Rpl [id number] + [id number] + 32 - Sna - [id number] Explanted:Qty: 1 on 02/14/2022 by Perry Garay Jr., DO at [facility] Screw Right: Knee [employer] 11/18/2031 [id number] / NA / [id number] Screw Bn 35mm 6.5mm St Hip Actb Trlg Strl Rpl [id number] + [id number] + 32 - Sna - [id number] Explanted:Qty: 1 on 02/14/2022 by Perry Garay Jr., DO at [facility] Screw Right: Knee [employer] 10/28/2031 [id number] / NA / [id number] Screw Gd 48mm Qd-Spr Hex Hd Mis Strl - Sna - [id number] Explanted:Qty: 2 on 02/14/2022 by Perry Garay Jr., DO at [facility] Screw Right: Knee [employer] 12/15/2031 [id number] / NA / [id number] Procedures Procedure Name Priority Date/Time Associated Diagnosis Comments VASC VENOUS DUPLEX LOWER BILATERAL Routine 03/06/2025 7:20 AM EDT Pain MR BRAIN WO CONT Routine 03/05/2025 10:05 PM EDT Pain MR BRAIN WO CONT Routine 03/02/2025 10:45 AM EDT Pain MR MRA HEAD WO CONT Routine 03/02/2025 10:[address] BRAIN WO CONT Routine 03/02/2025 8:10 AM EDT Pain from Last 3 Months Results * Vas venous duplex lwr bilateral (03/06/2025 7:20 AM EDT) us Scanning Provider External CV VASCULAR ORDERABLE S Final Result MEDSTREAMING * MR brain without contrast (03/05/2025 10:05 PM EDT) Only the most recent of2 resultswithin the time period is included. us Scanning Provider External IMG MRI ORDERABLES Fi nal Result * MRA head without contrast (03/02/2025 10:40 AM EDT) us Scanning Provider External IMG MRI ORDERABLES Fi nal Result * CT brain without contrast (03/02/2025 8:10 AM EDT) us Scanning Provider External IMG CT ORDERABLES Fin al Result from Last 3 Months Insurance [employer] MEDICARE Advance Directives * Full Code (Latest Code Status on File) Date Activated Date Inactivated Comments 02/14/2022 5:01 PM 02/15/2022 5:17 PM Care Teams Dining Room Coordinator Relationship Specialty Start Date End Date Devang Keyes DO [address] [place] [address] PCP - General Internal Medicine 01/27/22
--- OUTSIDE RECORDS SUMMARY | 2025-04-20 14:47 | XMS_ITS | Encounter Summary ---
Author Organization [facility] Address [address] [place] [address] Care Team Providers Care Glass Production Machine Operator Name Role Phone Devang Keyes DO Primary Care Provider [phone] Encounter Details Date Type Department Care Team (Late st Contact Info) Description 04/05/2023 Abstract [facility] [address] [facility] [address] [place] [address] Jr. Perry Garay DO [address] [facility] [address] [place] [address] Social History Tobacco Use Types Packs/Day Years Used Date Smoking Tobacco: Never Smokeless Tobacco: Never Tobacco Cessation:Counseling Given: Not [...] NB OPHT [address] [place] [phone] Adolph Schultz DO [address] [place] [address] 11/11/2025 10:15 AM EST Office Visit [facility] [address] [place] [address] Jr. Perry Garay DO [address] [facility] [address] [place] [address] documented as of this encounter Visit Diagnoses Not on filedocumented in this encounter Care Teams Glass Production Machine Operator Relationship Specialty Start Date End Date Devang Keyes DO PCP - General Internal Medicine 02/25/24 documented as of this encounter
--- OUTSIDE RECORDS SUMMARY | 2025-04-20 14:47 | XMS_ITS | Encounter Summary ---
Author Organization [employer] Address [id number] [address] [place] [address] Care Team Providers Care Manager Hematology Name Role Phone Devang Keyes DO Primary Care Provider [phone] Encounter Details Date Type Department Care Team (Late st Contact Info) Description 03/07/2025 Orders Only [facility] [place] [address] Transcribe, Orders Support User Pain (Primary [...] documented as of this encounter Results * Vas venous duplex lwr bilateral (03/06/2025 7:20 AM EDT) us Scanning Provider External CV VASCULAR ORDERABLE S Final Result MEDSTREAMING * MR brain without contrast (03/05/2025 10:05 PM EDT) us Scanning Provider External IMG MRI ORDERABLES Fi nal Result documented in this encounter Visit Diagnoses Diagnosis Pain- Primary Generalized pain documented in this encounter Care Teams Manager Hematology Relationship Specialty Start Date End Date Devang Keyes DO [address] [place] [address] PCP - General Internal Medicine 01/27/22 documented as of this encounter
--- OUTSIDE RECORDS SUMMARY | 2025-04-20 14:47 | XMS_ITS | Encounter Summary ---
Author Organization [facility] Address [address] [place] [address] Care Team Providers Care Informatics Manager Name Role Phone Devang Keyes DO Primary Care Provider [phone] Reason for Visit * Reason Comments Medication Refill Encounter Details Date Type Department Care Team (Late st Contact Info) Description 01/29/2019 [facility] [address] [place] [address] Cande Weinberg, WINE STEWARD - POLLUTION CONTROL ENGINEER [address] [facility] [address] [place] [address] Medication Refill Social History Tobacco Use Types Packs/Day Years [...] documented as of this encounter Visit Diagnoses Diagnosis Lumbar radiculopathy Thoracic or lumbosacral neuritis or radiculitis, unspecified Lumbar spondylosis Lumbosacral spondylosis without myelopathy Lumbar disc herniation Displacement of lumbar intervertebral disc without myelopathy S/P lumbar fusion Arthrodesis status documented in this encounter Care Teams Informatics Manager Relationship Specialty Start Date End Date Devang Keyes DO PCP - General Internal Medicine 02/15/18 documented as of this encounter
--- OUTSIDE RECORDS SUMMARY | 2025-04-20 14:47 | XMS_ITS | Clinical Summary ---
Author Organization [facility] Address [address] [place] [address] Care Team Providers Care Excel Developer Name Role Phone WaliDevang Iwona REYNA Primary Care Provider [phone] Allergies No known active allergies Medications amLODIPine (NORVASC) 5 mg tablet Take 5 mg by mouth. 07/02/2017 Active allopurinol (ZYLOPRIM) 100 mg tablet 04/12/2020 Active aspirin, enteric coated (ASPIRIN, ENTERIC COATED) 81 mg EC tablet Take 81 mg by mouth. Active clopidogrel (PLAVIX) 75 mg tablet Take 75 mg by mouth. 06/16/2019 Active hydroCHLOROthiaz lexis (HYDRODIURIL, ESIDRIX) 25 mg tablet Take 25 mg by mouth. 07/02/2017 Active calcium carbonate/vitami n D3 (CALCIUM 600 + D ORAL) Take by mouth. Daily PM Active lutein-zeaxanthi n 25-5 mg cap Take by mouth. am Active cyanocobalamin (VITAMIN B-12) 1,000 mcg tab Take 1,000 mcg by mouth once daily. Active Ascorbic Acid (VITAMIN C) 1,000 mg tablet Take 1,000 mg by mouth once daily. Active tolterodine (DETROL) 2 mg tablet Take 2 mg by mouth twice daily. Active Family History Medical History Relation Comments Multiple Sclerosis Daughter 1 Multiple Sclerosis Daughter 2 Relation Status Comments Daughter 1 Daughter 2 Social History Tobacco Use Types Packs/Day Years Used Date Smoking Tobacco: Former Smokeless Tobacco: Never Alcohol Use Standard Drinks/Week Comments Not Currently 0 (1 standard drink = 0.6 oz pur e alcohol) PHQ-2 Answer Date Recorded PHQ-2 score 1 07/25/2020 Area Deprivation Index Answer Date Anastacio rded National Score (1-100), lower number is lower ri sk Not on file 10/13/2020 State Score (1-10), lower number is lower risk N ot on file 10/13/2020 Data from: https://www.neighborhoodatlas.medicine.[facility].edu/. Last address used for calculation Not on file 10/13/2020 Sex and Gender Information Value Date Recorded Sex Assigned at Not on file Legal Sex Male 11:52 AM EDT Gender Identity Not on file Sexual Orientation Not on file Last Filed Vital Signs Vital Sign Reading Time Taken Comments Blood Pressure 138/73 04/19/2021 8:16 AM EDT Pulse 77 04/19/2021 8:16 AM EDT Temperature - - Respiratory Rate - - Oxygen Saturation - - Inhaled Oxygen Concentration - - Weight 115.7 kg (255 lb) 06/25/2020 7:53 AM EDT Height 193 cm (6' 4 ) 06/25/2020 7:53 AM EDT Body Mass Index 31.04 06/25/2020 7:53 AM EDT Plan of Treatment Health Maintenance Due Date Last Done Comments Anxiety Screening 1963 Depression Screening 1963 Hepatitis C Screening 1963 DTaP,Tdap,Td Vaccine (1 - Tdap) 1965 Pneumococcal Vaccine: 50+ (1 of 1 - PCV) 1996 Shingrix Vaccine (1 of 2) 1996 RSV Vaccine (1 - 1-dose 75+ series) 2021 Diabetes Screening 07/27/2023 07/27/2020, 0 04/12/2018, 04/11/2018, Additional history exists Covid-19 Vaccine (1 - 2023-2 5 season) 2024 Advance Directive Discussion 11/05/2024 Influenza Vaccine (Season Ended) 2025 07/01/20 20 Procedures Procedure Name Priority Date/Time Associated Diagnosis Comments HEMOGLOBIN A1C Routine 07/27/2020 11:05 AM EDT Idiopathic peripheral neuropathy Spinal stenosis, lumbar region, without neurogenic claudication from Last 3 Months or Most Recently Relevant to Health Maintenance Results * (ABNORMAL) HGB A1C (07/27/2020 11:05 AM EDT) Hemoglobin A1C 5.8(H) 4.3 - 5.6 % 07/27/2020 6:25 PM EDT [facility] Comment: [place] Diabetes Association guidelines indicate that patients with HgbA1c in the range 5.7-6.4% are at increased risk for development of diabetes, and intervention by lifestyle modification may be beneficial. HgbA1c greater or equal to 6.5% is considered diagnostic of diabetes. Estimated Average Glucose 120 mg/dL 07/27/2020 6:25 PM EDT [facility] Comment: eAG: (Estimated average glucose) is a calculated value from HgbA1c and is healthcare sales representative of the average blood glucose level in the last 2-3 month period. Blood WHOLE BLOOD SPECIMEN / Unknown 07/27/2020 11:05 AM EDT 07/27/2020 11:07 AM EDT us Alanis Nguyen MD LABORATORY Final Result [facility] [address] [place] [address] [facility] [address] [place] [address] from Last 3 Months or Most Recently Relevant to Health Maintenance Insurance [employer] MEDICARE Care Teams Excel Developer Relationship Specialty Start Date End Date Devang Keyes DO PCP - General Internal Medicine 07/19/15
--- OUTSIDE RECORDS SUMMARY | 2025-04-20 14:47 | XMS_ITS | Encounter Summary ---
Author Organization [facility] Address [address] [place] [address] Phone Care Team Providers Care Hand Knitter Name Role Phone Devang Keyes DO Primary Care Provider [phone] Devang Keyes DO Primary Care Provider [phone] Anita Schmid MD Unavailable [phone] Encounter Details Date Type Department Care Team (Late st Contact Info) Description 02/14/2022 Orders Only [facility] [address] [place] [address] Conversion, Onbase Social History Tobacco Use Types [...] Description 06/17/2025 9:30 AM EDT Office Visit [facility] [address] [facility] [address] [place] [phone] Marisol Alas MD [address] [facility] [address] [place], [place] [phone] Scheduled Orders Name Type Priority Associated Diagnoses Orde r Schedule OUTSIDE LAB SCAN Lab Ordered: 02/14/2022 documented as of this encounter Visit Diagnoses Not on filedocumented in this encounter Care Teams Hand Knitter Relationship Specialty Start Date End Date Devang Keyes DO PCP - General 11/05/99 11/13/23 Devang Keyes DO PCP - General Internal Medicine 11/14/23 Anita Schmid MD [address] [place] [address] Referring Physician 01/28/25 documented as of this encounter
--- NOTE | 2025-04-20 15:04 | ECG_ITS ---
[facility] Test Date: 2025-04-20 Pat Name: RIDGE ROLAND Department: Room: - Gender: Male Bladder Blower: : 1945 Requested By: [id number] Order Number: [id number] Reading MD: ANDREW CHAPMAN M.D. Measurements Intervals [place] Rate: 68 P: -11 NE: 188 QRS: 19 QRSD: 106 T: 8 QT: 388 QTc: 405 Interpretive Statements 1100 Sinus rhythm 1570 with occasional ventricular premature complexes 4068 Nonspecific Twave abnormality 9140 abnormal rhythm ECG Compared to ECG 02/04/2025 08:24:19 Ventricular premature complex(es) now present Electronically Signed On 04-20-2025 16:56:06 EDT by ANDREW CHAPMAN M.D.
--- NOTE | 2025-04-20 15:04 | XR_ITS ---
The [address] [address] Patient Name: RIDGE ROLAND MRN: [id number] date: 1945 Sex: M Assigned Patient Location: ER Current Patient Location: ER Accession/Order Number: [id number] Exam Date: 04/20/2025 16:08 Report Date: 04/20/2025 16:10 At the request of: MYKEL GRACIA MD Procedure: XR chest 1V XR chest 1V 04/20/2025 3:33 PM SIGNS AND SYMPTOMS: ^Altered mental status, weakness, confusion ^Y PROTOCOL: Frontal radiograph of the chest COMPARISON: 01/26/2025 FINDINGS: The trachea is midline. The heart and mediastinal structures are within normal limits. The lung parenchyma is clear. Calcified pleural plaque is redemonstrated bilaterally. The bony thorax is intact. Degenerative changes are noted in the thoracic spine and shoulders. XR/XR chest 1V IMPRESSION: No acute cardiopulmonary pathology. 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 Impression dictated by: Magdi Sandoval M.D. 04/20/2025 4:10 PM Dictation Location: [place] [address] Electronically authenticated by: [id number] Y Date: 04/20/2025 16:10
--- NOTE | 2025-04-20 15:05 | CT_ITS ---
The [address] [address] Patient Name: RIDGE ROLAND MRN: [id number] date: 1945 Sex: M Assigned Patient Location: ER Current Patient Location: ER Accession/Order Number: [id number] Exam Date: 04/20/2025 16:05 Report Date: 04/20/2025 16:08 At the request of: MYKEL GRACIA MD Procedure: CT head/brain wo con CT head/brain wo con 04/20/2025 3:29 PM SIGNS AND SYMPTOMS: ^Altered mental status, weakness, confusion TECHNIQUE:Multi-detector CT axial slices of the brain were obtained without IV contrast. CT was performed with one or more of the following dose reduction techniques: Automated exposure control, adjustment of the mA and/or kV according to patient size, or use of iterative reconstruction technique. COMPARISON: 05/02/2024. FINDINGS: There is no shift of the midline structures, acute intracranial bleeding, mass effects, or evidence of acute ischemia. There is age-related cortical atrophy. There is mineralization the deep gauthier nuclei. Periventricular white matter hypoattenuation is noted. Atherosclerotic changes are noted in the intracranial segments of the internal carotid arteries. The ventricular system is normal in size. The brainstem and the cerebellum are unremarkable. The visualized intraorbital contents and the infratemporal soft tissues show no acute abnormality. The osseous structures in the skull base and the calvarium show no abnormality. Mucosal thickening is noted in the maxillary sinuses and right sphenoid sinus. CT/CT head/brain wo con IMPRESSION: No acute intracranial pathology. 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 Impression dictated by: Magdi Sandoval M.D. 04/20/2025 4:08 PM Dictation Location: [place] [address] Electronically authenticated by: [id number] Y Date: 04/20/2025 16:08
--- NOTE | 2025-04-20 15:10 | CM.NOTE ---
Call received from Dr. Meehan in ER regarding pt situation and recent discharge from [facility]. Called Anupama at [facility] for update on pt's discharge, left message awaiting call back.
--- NOTE | 2025-04-20 15:13 | ED.GENADUL1 ---
HPI HPI - General Adult General Chief complaint: Weakness Stated complaint: DIFFICULTY WALKING Time Seen by Provider: 04/20/25 14:52 Source: patient Mode of arrival: ambulance Limitations: no limitations History of Present Illness HPI narrative: 79-year-old male presents because of some confusion and weakness. His gives essentially all of the history. He had back surgery in February and had been at the [facility] since March 08. He was released 4 days ago and has been at home. His feels that he was released too soon. He states that he has been telling her there are people out in the [facility] that are not there. He does not seem to have any complaints of pain and he tells me only his pride hurts. She is worried about him being at home. Related Data Home Medications ?Medication ?Instructions ?Recorded ?Confirmed allopurinol 300 mg tablet 300 mg PO DAILY 05/02/24 04/20/25 amitriptyline 10 mg tablet mg 05/02/24 amlodipine 5 mg tablet mg 05/02/24 atorvastatin 40 mg tablet mg 05/02/24 etodolac 500 mg tablet mg 05/02/24 hydrochlorothiazide 25 mg tablet mg 05/02/24 losartan 25 mg tablet mg 05/02/24 potassium chloride 20 mEq meq PO 05/02/24 tablet,extended release(part/cryst) (Klor-Con M) mirabegron 50 mg tablet,extended 50 mg PO DAILY 04/20/25 04/20/25 release 24 hr mirtazapine 45 mg tablet 45 mg PO BEDTIME 04/20/25 04/20/25 trospium 20 mg tablet 20 mg PO BID 04/20/25 04/20/25 Allergies Allergy/AdvReac Type Severity Reaction Status Date / Time No Known Drug Allergies Allergy Verified 04/20/25 14:45 Review of Systems ROS Narrative A ten point review of systems is negative except as noted above. PFSH PFSH Social History Smoking status: Former smoker Little interest or pleasure in doing things: not at all Feeling down, depressed, or hopeless: not at all Exam Narrative Exam Narrative: Nurses note and vital signs reviewed and patient is not hypoxic. General: The patient is in no acute distress. He seems to prefer to keep his eyes closed and let his answer questions Skin: Warm, dry, no pallor noted. There is no rash noted. Head: Normocephalic, atraumatic Eye: Normal conjunctiva, no drainage, EOMI. PERRL Ears, Nose, Mouth, and Throat: oral mucosa is moist. Nares patent. Cardiovascular: Regular Rate and Rhythm Respiratory: Patient is in no distress, no accessory muscle use, lungs are clear to auscultation, no wheezing, rales or rhonchi Back: non-tender GI: Soft and nontender Musculoskeletal: The patient has no evidence of calf tenderness, no pitting edema, symmetrical pulses noted bilaterally. Braces are on each lower leg Neurological: A&O x4, normal speech Psychiatric: Cooperative Constitutional Vital Signs, click to edit/add: Last Vital Signs Pulse 72 04/20/25 16:10 Resp 18 04/20/25 16:10 BP 132/83 04/20/25 14:45 Pulse Ox 95 04/20/25 15:33 O2 Del Method Room Air 04/20/25 14:59 Course Vital Signs Vital signs: Vital Signs Pulse Rate 70 04/20/25 14:45 Respiratory Rate 20 04/20/25 14:45 Blood Pressure 132/83 04/20/25 14:45 Pulse Oximetry 97 04/20/25 14:45 Oxygen Delivery Method Room Air 04/20/25 14:45 Pulse Rate 72 04/20/25 16:10 Respiratory Rate 18 04/20/25 16:10 Blood Pressure 132/83 04/20/25 14:45 Pulse Oximetry 95 04/20/25 15:33 Oxygen Delivery Method Room Air 04/20/25 14:59 Medical Decision Making MDM Narrative Medical decision making narrative: Workup here is negative. His is concerned about the patient going home and that she may not be able to take care of him. She states he has been able to ambulate and has been sleeping in a recliner. He will be admitted for observation. Findings were discussed with his . Differential Diagnosis Differential Diagnosis: UTI, dehydration, anemia Lab Data Lab results reviewed: Yes I reviewed the patient's lab results Labs: Lab Results 04/20/25 04/20/25 Range/Units 15:11 15:45 WBC 6.2 (4.0-11.0) 10^3/uL RBC 4.46 L (4.70-6.10) 10^6/uL Hgb 13.3 L (14.0-18.0) g/dL Hct 40.2 L (42.0-54.0) % MCV 90.1 (80.0-94.0) fL MCH 29.8 (25.9-34.0) pg MCHC 33.1 (29.9-35.2) g/dL RDW 13.8 (11.0-15.0) % Plt Count 259 (150-450) 10^3/uL MPV 10.6 (9.5-13.5) fL Neut % (Auto) 66.5 (43.0-75.0) % Lymph % (Auto) 20.0 L (20.5-60.0) % Elbert % (Auto) 9.7 (1.7-12.0) % Eos % (Auto) 2.3 (0.9-7.0) % Baso % (Auto) 0.5 (0.2-2.0) % Neut # (Auto) 4.1 (1.4-6.5) 10^3/uL Lymph # (Auto) 1.2 (1.2-3.8) 10^3/uL Elbert # (Auto) 0.6 (0.3-0.8) 10^3/uL Eos # (Auto) 0.1 (0.0-0.7) 10^3/uL Baso # (Auto) 0.0 (0.0-0.1) 10^3/uL Abs Immat Gran (auto) 0.06 H (0.00-0.03) 10^3/uL Imm/Tot Granulo (auto) 1.0 H (0.0-0.5) % Sodium 144 (136-145) mmol/L Potassium 3.1 L (3.5-5.1) mmol/L Chloride 105 (98-107) mmol/L Carbon Dioxide 29.0 (21.0-32.0) mmol/L Anion Gap 13.1 BUN 17.0 (7.0-18.0) mg/dL Creatinine 0.70 (0.70-1.30) mg/dL Est GFR ( Amer) >60 (>=60 mL/min/1.73m^2) Est GFR (Non-Af Amer) >60 (>=60 mL/min/1.73m^2) BUN/Creatinine Ratio 24.3 Glucose 112 H (74-106) mg/dL Calcium 9.6 (8.5-10.1) mg/dL Total Bilirubin 0.5 (0.2-1.0) mg/dL Direct Bilirubin 0.1 (0.0-0.2) mg/dL AST 15 (15-37) U/L ALT 20 (16-63) U/L Alkaline Phosphatase 162 H (46-116) U/L Total Protein 6.6 (6.4-8.2) g/dL Albumin 3.3 L (3.4-5.0) g/dL Globulin 3.3 g/dL Albumin/Globulin Ratio 1.0 Urine Color Yellow (YELLOW) Urine Clarity Clear (CLEAR) Urine pH 6.5 (5.0-9.0) Ur Specific [place] 1.020 (1.005-1.025) Urine Protein Negative (NEG/TRACE) mg/dL Urine Glucose (UA) Negative (NEGATIVE) mg/dL Urine Ketones Negative (NEGATIVE) mg/dL Urine Occult Blood Negative (NEGATIVE) Urine Nitrite Negative (NEGATIVE) Urine Bilirubin Moderate A (NEGATIVE) Urine Urobilinogen 0.2 (0.2-1.0) EU/dL Ur Leukocyte Esterase Negative (NEGATIVE) Urine RBC None seen (0-2) #/HPF Urine WBC 0-2 A (NONE SEEN) #/HPF Ur Squamous Epith Cells Rare (NONE/RARE) #/LPF Urine Crystals None seen (None Seen) #/HPF Urine Bacteria Trace A (NONE SEEN) #/HPF Urine Casts None seen (NONE SEEN) #/LPF Urine Mucus Small A (NONE SEEN) Imaging Data Chest x-ray: Radiologist's impression: ITS Impressions Chest X-Ray 04/20/25 15:04 IMPRESSION: No acute cardiopulmonary pathology. 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 Impression dictated by: Magdi Sandoval M.D. 04/20/2025 4:10 PM Dictation Location: [facility] Electronically authenticated by: [id number] Y Date: 04/20/2025 16:[address] 04/20/25 15:05 IMPRESSION: No acute intracranial pathology. 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 Impression dictated by: Magdi Sandoval M.D. 04/20/2025 4:08 PM Dictation Location: [employer] [employer] Electronically authenticated by: [id number] Y Date: 04/20/2025 16:08 ECG Data Attestation: I personally reviewed and interpreted this ECG as follows: ([id number], monitor potation shows normal sinus rhythm with rate of 68 and a PVC.) Discharge Plan Discharge Chief Complaint: Weakness Clinical Impression: Generalized weakness, Confusion Patient Disposition: Admitted as Observation Time of Disposition Decision: 17:11 Condition: Fair
[2025-04-20 15:29] LABS: Basophils Percent Auto 0.5 % (0.2-2.0); Eosinophils Absolute Auto 0.1 10^3/uL (0.0-0.7); Eosinophils Percent Auto 2.3 % (0.9-7.0); Hematocrit 40.2 % (42.0-54.0); Hemoglobin 13.3 g/dL (14.0-18.0); Immature Granulocytes Abs Auto 0.06 10^3/uL (0.00-0.03); Lymphocytes Absolute Auto 1.2 10^3/uL (1.2-3.8); Mean Corpuscular HGB Conc 33.1 g/dL (29.9-35.2); Mean Corpuscular Hemoglobin 29.8 pg (25.9-34.0); Mean Corpuscular Volume 90.1 fL (80.0-94.0); Mean Platelet Volume 10.6 fL (9.5-13.5); Monocytes Absolute Auto 0.6 10^3/uL (0.3-0.8); Monocytes Percent Auto 9.7 % (1.7-12.0); Neutrophils Absolute Auto 4.1 10^3/uL (1.4-6.5); Neutrophils Percent Auto 66.5 % (43.0-75.0); Platelet Count 259 10^3/uL (150-450); Red Blood Count 4.46 10^6/uL (4.70-6.10); Red Cell Distribution Width 13.8 % (11.0-15.0); White Blood Count 6.2 10^3/uL (4.0-11.0)
[2025-04-20 15:38] LABS: Anion Gap 13.1; BUN Creatinine Ratio 24.3; Calcium 9.6 mg/dL (8.5-10.1); Chloride 105 mmol/L (98-107); Estimated GFR (African America >60 (>=60 mL/min/1.73m^2); Estimated GFR (Non-African Ame >60 (>=60 mL/min/1.73m^2); Glucose 112 mg/dL (74-106); Potassium 3.1 mmol/L (3.5-5.1); Sodium 144 mmol/L (136-145)
[2025-04-20 15:42] LABS: Alanine Aminotransferase 20 U/L (16-63); Albumin Level 3.3 g/dL (3.4-5.0); Alkaline Phosphatase 162 U/L (46-116); Aspartate Amino Transferase 15 U/L (15-37); Bilirubin Direct 0.1 mg/dL (0.0-0.2); Bilirubin Total 0.5 mg/dL (0.2-1.0); Globulin 3.3 g/dL; Total Protein 6.6 g/dL (6.4-8.2)
[2025-04-20 15:52] LABS: Bilirubin Urine MODERATE (NEGATIVE); Blood Urine NEGATIVE (NEGATIVE); Clarity Urine CLEAR (CLEAR); Color Urine YELLOW (YELLOW); Glucose Urine UA NEGATIVE (NEGATIVE); Ketones Urine NEGATIVE (NEGATIVE); Leukocyte Esterase Urine NEGATIVE (NEGATIVE); Nitrite Urine NEGATIVE (NEGATIVE); Protein Urine NEGATIVE (NEG/TRACE); Urobilinogen Urine 0.2 EU/dL (0.2-1.0); pH Urine 6.5 (5.0-9.0)
[2025-04-20 16:10] LABS: Bacteria Urine TRACE #/HPF (NONE SEEN); Cast Seen? NONE SEEN #/LPF (NONE SEEN); Crystals Seen? None Seen #/HPF (None Seen); Mucus Urine SMALL (NONE SEEN); RBC Urine NONE SEEN #/HPF (0-2); Squamous Epithelial Cell Urine RARE #/LPF (NONE/RARE); WBC Urine 0-2 #/HPF (NONE SEEN)
--- NOTE | 2025-04-20 17:34 | PM.IMHP1 ---
Internal Medicine - H&P: HPI History of Present Illness Chief complaint: DIFFICULTY WALKING Narrative: Patient is a 79 year old male with medical history as listed below presented accompanied by his for difficulty walking, generalized weakness. He had back surgery in February and had been at the [facility] since March 08. He was released 4 days ago and has been at home. states he has been weak. Patient himself reports hallucinations, visual and auditory. pt reports he seems somnolent during episodes. He did have similar episodes while hospitalized at that time of his back surgery, underwent MRI brain and EEG which were unrevealing, was told he had a bad UTI . Patient has not been able to ambulate at home. Required 2 medical personal to pick him up and put him in the ambulance. Patient denies nausea, vomiting, diarrhea. He does have increase abd girth, thinks he gained some weight. Last BM last night, tolerating oral diet. Here in ER, normotensive, saturating well on RA, afebrile, no leukocytosis. denies fever or chills at home. UA came back neg for infection. CXR with no acute pathology. CT head with no acute pathology. Patient unable to care for self at home and requires maximal assistance for his ADLs. cannot care for him at home. Decision was made to admit him for further evaluation and managmenet. Review of Systems ROS Status of ROS 10 or more systems reviewed and unremarkable except as noted in history and below [facility] Social History Smoking status: Former smoker Little interest or pleasure in doing things: not at all Feeling down, depressed, or hopeless: not at all Meds Home Medications and Allergies Home Medications ?Medication ?Instructions ?Recorded ?Confirmed ?Type allopurinol 300 mg tablet 300 mg PO DAILY 05/02/24 04/20/25 History amitriptyline 10 mg tablet 10 mg PO .QHS 05/02/24 04/20/25 History amlodipine 5 mg tablet 10 mg PO .QD 05/02/24 04/20/25 History atorvastatin 40 mg tablet 40 mg PO .QHS 05/02/24 04/20/25 History etodolac 500 mg tablet 500 mg PO BIDWM 05/02/24 04/20/25 History hydrochlorothiazide 25 mg tablet 25 mg PO QAM 05/02/24 04/20/25 History losartan 25 mg tablet 25 mg PO .QD 05/02/24 04/20/25 History potassium chloride 20 mEq 20 meq PO .QD 05/02/24 04/20/25 History tablet,extended release(part/cryst) (Klor-Con M) mirabegron 50 mg tablet,extended 50 mg PO DAILY 04/20/25 04/20/25 History release 24 hr mirtazapine 45 mg tablet 45 mg PO BEDTIME 04/20/25 04/20/25 History trospium 20 mg tablet 20 mg PO BID 04/20/25 04/20/25 History Allergies Allergy/AdvReac Type Severity Reaction Status Date / Time No Known Drug Allergies Allergy Verified 04/20/25 14:45 Exam Constitutional Vital Signs, click to edit/add: Last Vital Signs Pulse 72 04/20/25 16:10 Resp 18 04/20/25 16:10 BP 132/83 04/20/25 14:45 Pulse Ox 95 04/20/25 15:33 O2 Del Method Room Air 04/20/25 14:59 Common normals: no apparent distress General appearance: cooperative and comfortable [facility] Common normals: normocephalic and head/scalp atraumatic Eye Common normals: PERRL and conjunctivae normal Chest Common normals: inspection of chest normal Respiratory Common normals: normal respiratory effort, no retractions and no use of accessory muscles Effort & inspection: able to speak in complete sentences Auscultation: clear to auscultation bilaterally Cardio Rate: regular rate Rhythm: regular rhythm Heart sounds: S1 normal and S2 normal GI Other: abdomen seem distended, soft, nontender, no guarding Extremity Other: bilateral leg edema ++ Neuro Common normals: oriented x3, CN's II-XII intact bilaterally, moves all extremities and no focal motor deficits Other: appears confused Internal Medicine - H&P: Reslt Labs Labs: Short CBC 04/20/25 Range/Units 15:11 WBC 6.2 (4.0-11.0) 10^3/uL Hgb 13.3 L (14.0-18.0) g/dL Hct 40.2 L (42.0-54.0) % Plt Count 259 (150-450) 10^3/uL BMP 04/20/25 15:11 Sodium 144 Potassium 3.1 L Chloride 105 Carbon Dioxide 29.0 BUN 17.0 Creatinine 0.70 Glucose 112 H Calcium 9.6 Liver Function 04/20/25 Range/Units 15:11 Total Bilirubin 0.5 (0.2-1.0) mg/dL Direct Bilirubin 0.1 (0.0-0.2) mg/dL AST 15 (15-37) U/L ALT 20 (16-63) U/L Alkaline Phosphatase 162 H (46-116) U/L Albumin 3.3 L (3.4-5.0) g/dL Urine 04/20/25 Range/Units 15:45 Urine Color Yellow (YELLOW) Urine Clarity Clear (CLEAR) Urine pH 6.5 (5.0-9.0) Ur Specific [place] 1.020 (1.005-1.025) Urine Protein Negative (NEG/TRACE) mg/dL Urine Glucose (UA) Negative (NEGATIVE) mg/dL Urinary Catheter Management Urinary Catheter Management Straight: Cath placed during this visit: yes Urethral indwelling: No Insertion date: 04/20/25 Insertion time: 15:49 Assessment and Plan Assessment and Plan (1) Acute encephalopathy: (2) Generalized weakness: Plan Acute encephalopathy, intermittent confusion episodes Generalized weakness Physical debility functional decline Rule out intracranial process Multiple back surgeries in the past -Check MRI brain -Check b12, folate, TSH -Avoid opioids, sedatives -PT/OT eval -CM to follow for disposition Leg edema Rule out DVT Rule out CHF Hx of CAD with stent -Check venous doppler B/L -Check Echo to evaluate LV function -Monitor on tele Abdominal distension Rule out intraabdominal process -Check CT AP wo contrast -Bowel regimen -Monitor for BM Hypokalemia -Will add KCL supplements DVT ppx: Lovenox Diet: as directed Discussed plan of care with patient and his at bedside, all questions answered, they in agreement with plan
--- NOTE | 2025-04-20 18:20 | CT_ITS ---
The [address] [address] Patient Name: RIDGE ROLAND MRN: [id number] date: 1945 Sex: M Assigned Patient Location: ER Current Patient Location: [place] Accession/Order Number: [id number] Exam Date: 04/20/2025 18:50 Report Date: 04/20/2025 19:01 At the request of: NAN PORTILLO MD Procedure: CT abdomen pelvis wo con CT abdomen pelvis wo con 04/20/2025 6:26 PM SIGNS AND SYMPTOMS: abd distension TECHNIQUE: Multidetector ct axial images of the abdomen and pelvis were obtained without IV contrast. Multiplanar reformats were performed and reviewed to further define anatomy and possible pathology. CT was performed with one or more of the following dose reduction techniques: Automated exposure control, adjustment of the mA and/or kV according to patient size, or use of iterative reconstruction technique. COMPARISON: None. FINDINGS: Lower Chest: Atherosclerotic changes are noted in the thoracic aorta and coronary arteries. ABDOMEN: Liver: There is calcified granuloma in the liver is Bile Ducts: Normal caliber. Gallbladder: No calcified gallstones. Normal caliber wall. Pancreas: Within normal limits. Spleen: Calcified granulomas are present in the spleen. Adrenals: Within normal limits. Kidneys: Within normal limits. Pelvis: Reproductive Organs: No pelvic masses. Ureters: Within normal limits. Bladder: Within normal limits. Bowel: There is a moderate to large amount of stool and bowel gas within the colon possibly relating to constipation. There is a normal appendix in the right lower quadrant. Mesenteric Lymph Nodes: No enlarged mesenteric lymph nodes. Peritoneum: No ascites or free air, no fluid collection. Vessels: Atherosclerotic changes are noted in the abdominal aorta and its branches. Retroperitoneum: Within normal limits. Abdominal Wall: Within normal limits. Bones: Postoperative changes are noted in the lumbar spine findings consistent with recent laminectomy. Posterior fusion hardware is noted from L2 through L5 with evidence of prior fusion at L5-S1. Degenerative changes are noted in the hips and sacroiliac joints. CT/CT abdomen pelvis wo con IMPRESSION: There is a moderate to large amount of stool and bowel gas within the colon possibly relating to constipation. No bowel obstruction. No free fluid or free air. Impression dictated by: Magdi Sandoval M.D. 04/20/2025 7:01 PM Dictation Location: [place] [address] Electronically authenticated by: [id number] Y Date: 04/20/2025 19:01
[2025-04-20] MEDS: FUROSEMIDE 40 MG/4 ML VIAL IVP (20:12)
[2025-04-20] MEDS: ENOXAPARIN SODIUM 40 MG/0.4 ML SYRINGE SUBQ (20:13)
--- NOTE | 2025-04-21 | MR_ITS ---
The [address] [address] Patient Name: RIDGE ROLAND MRN: [id number] date: 1945 Sex: M Assigned Patient Location: [place] Current Patient Location: [place] Accession/Order Number: [id number] Exam Date: 04/21/2025 17:47 Report Date: 04/21/2025 17:50 At the request of: NAN PORTILLO MD Procedure: MR head/brain wo con MR head/brain wo con 04/21/2025 5:16 PM SIGN AND SYMPTOMS: Altered mental status with hallucinations PROTOCOL: Multiplanar multisequence MR images of the brain without IV contrast COMPARISON: 05/02/2024 FINDINGS: Extra axial spaces: There is age-related cortical atrophy. Hemorrhage: None. Ventricular system: Within normal limits. Basal cisterns: Within normal limits and not effaced. Cerebral parenchyma: T2 and FLAIR hyperintense signal is noted in the periventricular and subcortical white matter consistent with mild chronic microvascular ischemic change. Midline shift: None.. Cerebellum: Within normal limits. Brainstem: Within normal limits. OTHER: Calvarium: Normal marrow signal. Vascular system: Satisfactory flow voids within the anterior and posterior circulation. Visualized Paranasal sinuses: Within normal limits. Visualized Orbits: Within normal limits. Visualized upper cervical spine: Within normal limits. Sella and skull base: Within normal limits. MR/MR head/brain wo con IMPRESSION: No acute or subacute ischemia. No acute intracranial pathology. Chronic age-related neurodegenerative changes are redemonstrated as above. Impression dictated by: Magdi Sandoval M.D. 04/21/2025 5:50 PM Dictation Location: [place] [address] Electronically authenticated by: [id number] Y Date: 04/21/2025 17:50
[2025-04-21 05:12] VITALS: BP 135/78; PULSE 73; TEMP 36.6; O2SAT 93
[2025-04-21 05:33] LABS: Basophils Percent Auto 0.5 % (0.2-2.0); Eosinophils Absolute Auto 0.1 10^3/uL (0.0-0.7); Hematocrit 38.9 % (42.0-54.0); Hemoglobin 13.3 g/dL (14.0-18.0); Immature Granulocytes Abs Auto 0.04 10^3/uL (0.00-0.03); Immature Granulocytes Pct Auto 0.6 % (0.0-0.5); Lymphocytes Absolute Auto 1.4 10^3/uL (1.2-3.8); Mean Corpuscular HGB Conc 34.2 g/dL (29.9-35.2); Mean Corpuscular Hemoglobin 30.6 pg (25.9-34.0); Mean Corpuscular Volume 89.6 fL (80.0-94.0); Mean Platelet Volume 10.8 fL (9.5-13.5); Monocytes Absolute Auto 0.6 10^3/uL (0.3-0.8); Neutrophils Absolute Auto 4.4 10^3/uL (1.4-6.5); Neutrophils Percent Auto 66.9 % (43.0-75.0); Platelet Count 261 10^3/uL (150-450); Red Blood Count 4.34 10^6/uL (4.70-6.10); Red Cell Distribution Width 13.8 % (11.0-15.0); White Blood Count 6.6 10^3/uL (4.0-11.0)
--- OUTSIDE RECORDS SUMMARY | 2025-04-21 06:01 | XMS_ITS | CCD ---
Author Organization [facility]iniSys[facility] Care Team Providers Care Desktop Support Technician Name Role Phone SMITA, ANG H. Unavailable Unavailable DEVANG HALL Unavailable Unavailable SMITA, ANG H. Unavailable Unavailable SMITA, ANG H. Unavailable Unavailable RAFAEL DEVANG E Unavailable Unavailable DEVANG HALL E Unavailable Unavailable SMITA, ANG H. Unavailable Unavailable SMITA, ANG H. Unavailable Unavailable SMITA, ANG H. Unavailable Unavailable Unavailable Unavailable Devang Hall Unavailable DEVANG HALL Primary Care Physician [phone] Devang Hall Unavailable LUDWIN LEMON Unavailable Allison [...] CRUZ Primary Care Unavailable RAFAEL, DR DE AL CRUZ Primary Care Unavailable RAFAEL, DR DE LA CRUZ Admitting Unavailable RAFAEL, DR DE LA CRUZ Attending Unavailable RAFALE, DR DE LA CRUZ Consulting Unavailable ZIEBER, [...] Unavailable Devang Hall DO Primary Care Provider DEVANG HALL Referring Unavailable Sophie, Stephenie Attending Unavailable Bib [...] DEVANG Referring Unavailable Sophie, Stephenie Attending Unavailable JAD BarriosC Stephenie Admitting Unavailabl e RAFAEL, DEVANG Referring [...] Huang Attending Unavailable DEVANG HALL Referring Unavailable Sophie Stephenie Admitting Unavailable Sophie Stephenie Attending Unavailable RAFAEL, DEVANG Referring Unavailable Bert Huang Attending Unavailable Bert Huang Referring Unavailable Bert Huang Attending Unavailable Bert Huang Referring Unavailable DEVANG HALL Referring Unavailable AYAN Barrios-C Stephenie Admitting Unavailabl e AYAN Barrios-C Stephenie Attending Unavailabl e BALL, DEVANG Referring Unavailable Bert Huang Admitting Unavailable Bert Huang Attending Unavailable Ball DO, Devang E Primary Care Provider Ball DO, Devang E Primary Care Provider [facility] WALTERS, Anita Unavailable [phone] MARISOL CONNORS Attending Unavailable MARISOL CONNORS Referring Unavailable BALL, DEVANG E Primary Care Unavailable CONNORSMARISOL MORALES Attending Unavailable BALL, DEVANG E Primary Care Unavailable BALL, DEVANG E Referring Unavailable BALL, DEVANG E Primary Care Unavailable BALL, DEVANG E Primary Care Unavailable SHAHAB, EHAD Consulting Unavailable BALL, DEVANG E Referring Unavailable BALL, DEVANG E Primary Care Unavailable BALL, DEVANG E Referring Unavailable BALL, DEVANG E Primary Care Unavailable BALL, DEVANG E Referring Unavailable BALL, DEVANG E Primary Care Unavailable BALL, DEVANG E Referring Unavailable BALL, DEVANG E Primary Care Unavailable [facility] Madeline WALTERS, Anita F Attending Unavailabl e Ball DO, Devang Edward Primary Care Unavail able Jadon Mccloud MD Admitting Unavailable Ball DO, Devang Edward Primary Care Unavail able Bob DARNELL, Lisa Marie Attending Unavaila ble Bob DARNELL, Lisa Marie Consulting Unavaila ble Butch SHIPMAN, Christian Levine Consulting Unavadiana Pena, Denny Marie Consulting Unavailab Ruby WALTERS, Deonte Brandon Consulting Unavadiana Bhatt, Jorgito Palma Consulting Unavailable Remberto WALTERS, Hung Consulting Unavailable CARLOS OBRIEN Attending Unavailable FATOUMATA MONTES Attending Unavailable PHIILP ALDRICH Attending Unavailable MONTES, FATOUMATA Davidson Referring Unavailable PHILIP ALDRICH Attending Unavailable MONTES, FATOUMATA Davidson Referring Unavailable BRJENNY GONZALEZ Attending Unavailable MONTES, FATOUMATA Davidson Referring Unavailable TITA FULTON Attending Unavailable MONTESFATOUMATA Referring Unavailable MONTES, FATOUMATA Davidson Attending Unavailable JENNY ALVARENGA Attending Unavailable FATOUMATA MONTES Referring Unavailable BRJENNY GONZALEZ Attending Unavailable FATOUMATA MONTES Referring Unavailable BRJENNY GONZALEZ Attending Unavailable MONTES, FATOUMATA Davidson Referring Unavailable MERLIN GERBER Attending Unavailable MONTES, FATOUMATA Davidson Referring Unavailable PATTI MIRANDA Attending Unavailable MONTES, FATOUMATA Davidson Referring Unavailable JENNY ALVARENGA Attending Unavailable KAYLEEN, FATOUMATA Davidson Referring Unavailable BRJENNY GONZALEZ Attending Unavailable MONTES, FATOUMATA Davidson Referring Unavailable RAMÍREZ PAEZ Attending Unavailable BRINK, JENNY Attending Unavailable MONTES, FATOUMATA Davidson Referring Unavailable KULDIPSONDRAELDON PATTI Attending Unavailable MONTES, FATOUMATA Davidson Referring Unavailable BRINK, JENNY Attending Unavailable MONTES, FATOUMATA Davidson Referring Unavailable BRINK, JENNY Attending Unavailable MONTES, FATOUMATA J Referring Unavailable BRINK, JENNY Attending Unavailable MONTES, FATOUMATA J Referring Unavailable TITA FULTON Attending Unavailable MONTES, FATOUMATA Davidson Referring Unavailable BRINK, JENNY Attending Unavailable MONTES, FATOUMATA Davidson Referring Unavailable BRINK, JENNY Attending Unavailable MONTES, FATOUMATA Davidson Referring Unavailable BRINK, JENNY Attending Unavailable MONTES, FATOUMATA Davidson Referring Unavailable YASSINEFAROOQ PHILIP Estefani Attending Unavailable MONTES, FATOUMATA Davidson Referring Unavailable JR. JEAN, ANDREW Keenan Attending Unavaila ble JR. JEAN, ANDREW Keenan Referring Unavaila ble Unavailable Unavailable Unavailable Allergies Allergy Classification Reported Allergen(s) Allergy Type Date of Onset Reaction(s) Facility DULoxetine (1 source) DULoxetine; Translations: [duloxetine] Drug Allergy Hallucinations (finding) [facility] Opioid Agonists (1 source) oxyCODONE; Translations: [oxycodone] Drug Allergy Visual hallucinations [facility] oxybutynin (1 source) oxybutynin; Translations: [oxybutynin] Drug Allergy Hallucinations (finding) [facility] (9 sources) Acetaminophen / HYDROcodone; Translations: [HYDROcodone-Alberto taminophen TABS] Drug Allergy 10-12-20 [facility] (20 sources) oxybutynin; Translations: [oxybutynin] Drug Allergy Hallucinations (finding) [facility] (20 sources) oxyCODONE; Translations: [oxycodone] Drug Allergy 01-28-20 22 Hallucinations [facility] (1 source) oxyCODONE Drug Allergy 11-05-19 18 [facility] (14 sources) DULoxetine; Translations: [duloxetine] Drug Allergy Hallucinations (finding) [facility] (3 sources) Sulfonamides (Antibiotic); Translations: [sulfa drugs] Propensity to adverse reactions (disorder) [facility] (20 sources) Acetaminophen / HYDROcodone; Translations: [HYDROCODONE-ALBERTO TAMINOPHEN] Drug Allergy 10-12-20 Hallucinations [facility] (20 sources) DULoxetine Drug Allergy 07-15-20 Hallucinations [facility] (1 source) HYDROcodone; Translations: [HYDROcodone] Drug Allergy [facility] Repository Medications Current Medications Medication Drug Class(es) Dates Sig (Normalized) Sig (Original) acetaminophen 650 mg oral tablet (7 sources) Start: 06-24-2024 take 650 mg by mouth three times daily as needed for pain Tylenol 650 mg, Oral, TID, PRN as needed for pain, Refills(s) 0 Start Date: 06/24/24 Status: Ordered Start: 06-24-2024 Tylenol Oral, Refills(s) 0 Start Date: 06/24/24 Status: Ordered amitriptyline hydrochloride 25 mg oral tablet (3 sources) Tricyclic Antidepressant Start: 05-02-2024 End: 07-01-2024 take 1 tablet by mouth once daily at bedtime amitriptyline 25 mg Tab 25 mg = 1 tab(s), Oral, Once a day (at bedtime), X 30 day(s), # 30 tab(s), Refills(s) 1, Pharmacy: [facility]/pharmacy #[id number], 193, cm, 05/02/24 10:29:00 EDT, Height/Length Dosing, 104.5, kg, 03/14/24 9:55:00 EDT, Weight Dosing Start Date: 05/02/24 Stop Date: 07/01/24 Status: Ordered Start: 03-14-2024 End: 05-13-2024 take 1 tablet by mouth once daily at bedtime amitriptyline 10 mg Tab 10 mg = 1 tab(s), Oral, Once a day (at bedtime), X 30 day(s), # 30 tab(s), Refills(s) 1, Pharmacy: [facility]/pharmacy #[id number], 193, cm, 03/14/24 9:55:00 EDT, [...] with food 4 tablet 3 07/08/2024 Active ascorbic acid 1000 mg oral tablet (20 sources) Vitamin C Start: 04-28-2024 take 1 g by mouth once daily Ascorbic Acid (Vitamin C) 1,000 mg tablet Active 1 GM PO Daily April 28, 2024 12:00am Start: 04-28-2024 take 1 g by mouth once daily A scorbic Acid (Vitamin C) Active 1 GM PO [...] Date: 12/02/19 Status: Ordered Start: 06-16-2019 take 1 tablet by addie th once daily Aspirin 81 mg tablet,delayed release (DR/EC) Active 81 MG PO Daily June 16, [...] sources) HMG-CoA Reductase Inhibitor Start: 06-16-2019 End: 10-24-2024 take 1 tablet by mouth once daily Atorvastatin (Lipitor) 40 mg tablet Active 40 MG PO Daily 90 October 24, 2024 10:40am baclofen 5 mg oral tablet (1 source) gamma-Aminobutyric Acid-ergic Agonist Start: 09-24-2024 End: 10-24-2024 take 1 tablet by mouth three times daily as needed for pain baclofen 5 mg oral tablet 5 mg = 1 tab(s), Oral, TID, take as needed for back pain/stiffness, X 30 day(s), # 90 tab(s), Refills(s) 0, Pharmacy: [facility]/pharmacy #[id number], 193, cm, 09/24/24 9:04:00 EST, [...] for 30 day(s) Active Calcium Carbonate-Vitamin D3 (7 sources) Vitamin D Start: 07-02-2017 take 1 tablet by mouth once daily Calcium Carbonate-Vitamin D3 Active 1 TAB Oral Daily July 02, 2017 10:49am Start: 07-02-2017 Calcium Carbon ate-Vitamin D3 (Calcium 500 + D) 500 mg(1,250mg) -400 unit Tablet Active 1 TAB PO Daily July 02, 2017 12:00am cephalexin 500 mg oral capsule (8 sources) Cephalosporin Antibacterial Start: 08-19-2024 take 1 capsule by mouth every twelve hours cephalexin 500 mg Cap 500 mg = 1 cap(s), Oral, q12hr, # 20 cap(s), Refills(s) 0, Pharmacy: [facility]/pharmacy #[id number], 193, cm, 08/19/24 7:28:00 EDT, Height/Length Dosing, 106.9, kg, 07/02/24 9:05:00 EDT, Weight Dosing Start Date: 08/19/24 Status: Ordered Start: 07-24-2017 End: 07-31-2017 take 1 capsule by mouth three times daily Cephalexin (Keflex) 500 mg capsule Discontinued 500 MG PO Three times daily 25 05July 24, 2017 12:00am July 30, 2017 12:00am July 31, 2017 12:02am space [...] procedure, # 14 tab(s), Refills(s) 0, Pharmacy: [facility]/pharmacy #[id number], 193, cm, 03/14/22 10:49:00 EDT, [...] day(s), # 60 cap(s), Refills(s) 1, Pharmacy: [facility]/pharmacy #[id number], 193, cm, 01/25/24 13:38:00 EDT, Height/Length Dosing, 102.4, kg, 01/25/24 13:38:00 EDT, Weight Dosing Start Date: 01/25/24 Stop Date: 03/25/24 Status: Ordered erythromycin 0.005 mg/mg ophthalmic ointment (1 source) Macrolide, Macrolide Antimicrobial Start: 02-07-2021 erythromycin ophthalmic 0.5% ointment 0.5 in, Eye-Both, QID, 3.5 gram, Refill(s) 1, [facility]/pharmacy #[id number], 192, cm, 02/03/21 8:57:00 EDT, Height/Length Dosing, 116, kg, 02/03/21 8:57:00 EDT, Weight Dosing Start Date: 02/07/21 Status: Ordered etodolac 500 mg oral tablet (20 sources) Nonsteroidal Anti-inflammatory Drug Start: 04-08-2024 End: 04-28-2024 take 1 tablet by mouth every twelve hours Etodolac 500 mg tablet Discontinued 0 .ROUTE .COMPLEX 60 April 08, 2024 1:26pm April 28, 2024 12:43pm TAKE 1 TABLET BY MOUTH EVERY 12 HOURS FOR 30 DAYS Start: 01-25-2024 End: 10-24-2024 take 1 tablet by mouth twice daily Etodolac 500 mg tablet Active 500 MG PO Twice daily 180 October 24, 2024 10:40am Start: 12-31-2023 End: 04-08-2024 take 1 tablet by mouth every twelve hours Etodolac 500 mg tablet Discontinued 500 MG PO Every 12 hours 60 January 10, 2024 3:02pm April 08, 2024 1:27pm famotidine 20 mg oral tablet (9 sources) Histamine-2 Receptor Antagonist Start: 11-01-2019 take 1 tablet by mouth every twelve hours Fish Oils (9 sources) hydroCHLOROthiazide 25 mg oral tablet (20 sources) Thiazide Diuretic Start: 04-28-2024 End: 10-24-2024 take 1 tablet by mouth once daily Hydrochlorothiazide 25 mg tablet Active 25 MG PO Daily 90 October 24, 2024 10:40am Start: 01-03-2024 End: 04-28-2024 take 1 tablet by mouth once daily Hydrochlorothiazide 25 mg tablet Discontinued 0 .ROUTE .COMPLEX January 03, 2024 8:12pm April 28, 2024 12:43pm TAKE 1 TABLET BY MOUTH EVERY DAY Start: 07-02-2017 End: 01-03-2024 take 1 tablet by mouth once daily Hydrochlorothiazide 25 mg Tablet Discontinued 25 MG PO daily July 02, 2017 12:00am January 03, 2024 8:12pm hydroCHLOROthiaz lexis Active losartan potassium 25 mg oral tablet (20 sources) Angiotensin 2 Receptor Pratik Start: 10-24-2024 End: 10-24-2024 take 1 tablet by mouth once daily Losartan 25 mg tablet Active 25 MG PO Daily 90 October 24, 2024 10:40am Start: 04-09-2024 End: 04-28-2024 take 1 tablet by mouth once daily Losartan 25 mg tablet Discontinued 0 .ROUTE .COMPLEX April 09, 2024 8:39pm April 28, 2024 10:12am TAKE 25 MG BY MOUTH DAILY FOR 30 DAYS Start: 03-17-2024 End: 10-24-2024 losartan 25 mg Tab Refills(s ) 0 Start Date: 06/12/24 Status: Ordered lutein 25 mg / zeaxanthin 5 mg oral capsule (20 sources) Start: 04-28-2024 take 1 capsule by mouth once daily Lutein-Zeaxanthin 25-5 mg capsule Active 1 CAP PO Daily April 28, [...] mirabegron 50 mg extended release oral tablet (8 sources) beta3-Adrenergic Agonist Start: 02-16-2025 take 1 tablet by mouth once daily Mirabegron (Myrbetriq) 50 mg tablet extended release 24 hr Active 50 MG PO Daily February 16, 2025 12:00am Start: 10-30-2024 take 1 tablet by addie th once daily, then take 1 tablet by mouth every twenty-four hours mirabegron ER (Myrbetriq) 50 MG 24 hr tablet Take 50 mg by mouth Daily 10/30/2024 Active Start: 07-05-2021 End: 12-25-2022 take 1 tablet by mouth once daily Myrbetriq 50 mg oral tablet, extended release 50 mg = 1 tab(s), Oral, Daily, X 90 day(s), # 90 tab(s), Refills(s) 3, Pharmacy: [facility] ([facility]), 193, cm, 12/27/21 9:50:00 EST, [...] Marisol Connors MD Start : 26-Sep-2022 Active Upton 3-Miv-Ydd-Fish Oil (1 source) Start: 07-02-2017 take 1200 mg by mouth once daily Upton 4-Pbz-Lgq-Fish Oil Active 1200 MG Oral Daily July 02, 2017 10:56am Osteo Bi-Flex Joint Shield (9 sources) potassium chloride 20 meq extended release oral tablet (20 sources) Start: 04-28-2024 End: 10-24-2024 take 1 tablet by mouth once daily Potassium Chloride 20 mEq tablet extended release Active 20 MEQ PO Daily 90 October 24, 2024 10:40am Start: 03-05-2024 KLOR-CON 20 ME Q ER [...] BID, # 60 cap(s), Refills(s) 2, Pharmacy: [facility]/pharmacy #[id number], 193, cm, 11/09/23 11:29:00 EST, Height/Length Dosing, 110, kg, 11/09/23 11:29:00 EST, Weight Dosing Start Date: 11/09/23 Status: Ordered Start: 04-18-2023 End: 05-18-2023 take 1 capsule by mouth twice daily pregabalin 25 mg Cap 25 mg = 1 cap(s), Oral, BID, X 30 day(s), # 60 cap(s), Refills(s) 0, Pharmacy: [facility]/pharmacy #[id number], 193, cm, 03/19/23 8:54:00 EDT, Height/Length Dosing, 108.9, kg, 03/19/23 8:54:00 EDT, Weight Dosing Start Date: 04/18/23 Stop Date: 05/18/23 Status: Ordered Start: 03-19-2023 take 1 capsule by mo [facility] twice daily pregabalin 25 mg Cap 25 mg = 1 cap(s), Oral, BID, # 60 cap(s), Refills(s) 0, Pharmacy: [facility]/pharmacy #[id number], 193, cm, 03/19/23 8:54:00 EDT, [...] hrs., # 15 tab(s), Refills(s) 3, Pharmacy: [facility]/pharmacy #[id number], 193, cm, 08/31/22 9:11:00 EDT, [...] Start: 02-07-2021 take 1 tablet by addie th every six hours as needed for pain traMADOL 50 mg Tab 50 mg = 1 tab(s), Oral, q6hr, PRN Pain, # 20 tab(s), Refills(s) 0, Pharmacy: [facility]/pharmacy #[id number], 192, cm, 02/03/21 8:57:00 EDT, Height/Length Dosing, 116, kg, 02/03/21 8:57:00 EDT, Weight Dosing Start Date: 02/07/21 Status: Ordered trospium chloride 20 mg oral tablet (20 sources) Cholinergic Muscarinic Antagonist Start: 02-16-2025 take 1 tablet by mouth twice daily Trospium 20 mg tablet Active 20 MG PO Twice daily February 16, 2025 12:00am administer on an empty stomach Start: 03-04-2019 End: 12-27-2023 take 1 capsule by mouth once daily Trospium 60 mg capsule,extended release 24hr Discontinued 60 MG PO Daily March 04, [...] Active vitamin b12 1 mg oral capsule (13 sources) Vitamin B12 Start: 04-28-2024 take 1 capsule by mouth once daily Cyanocobalamin (Vitamin B-12) 1,000 mcg capsule Active 1000 MCG PO Daily April 28, [...] / oxyCODONE hydrochloride 5 mg oral tablet (6 sources) Opioid Agonist Start: 07-24-2017 End: 03-04-2019 take 1 tablet by mouth every six hours as needed for pain Oxycodone-Acetamin ophen 5-325 mg Tablet Discontinued 1 TAB PO Q6H as needed for Pain Scale 1 - 5 40 14 July 24, 2017 12:00am March 04, 2019 8:09am allopurinol 300 mg oral tablet (20 sources) Xanthine Oxidase Inhibitor Start: 03-30-2024 End: 04-28-2024 take 1 tablet by mouth once daily Allopurinol 300 mg tablet Discontinued 0 .ROUTE .COMPLEX 90 March 30, 2024 3:48pm April 28, 2024 10:40am TAKE 1 TABLET BY MOUTH EVERY DAY Start: 05-08-2021 End: 10-24-2024 take 1 tablet by mouth once daily Allopurinol 300 mg tablet Discontinued 300 MG PO Daily 90 90 October 24, 2024 10:38am October 24, 2024 10:40am Start: 12-02-2020 take 1 tablet by addie th once daily allopurinol 100 mg Tab 100 mg = 1 tab(s), Oral, Daily, Refills(s) 0, Gout pain Start Date: 12/02/20 Status: Ordered amLODIPine 5 mg oral tablet (20 sources) Dihydropyridine Calcium Channel Pratik Start: 06-23-2024 End: 10-24-2024 take 1 tablet by mouth twice daily Amlodipine 5 mg tablet Discontinued 0 .ROUTE .COMPLEX 180 October 24, 2024 10:36am October 24, 2024 10:40am TAKE 1 TABLET BY MOUTH TWICE A DAY FOR 30 DAYS Start: 02-26-2024 End: 06-23-2024 take 1 tablet by mouth twice daily Amlodipine 5 mg tablet Discontinued 5 MG PO Twice daily 180 90 April 28, 2024 12:41pm June 23, 2024 11:44am Start: 11-29-2018 take 10 mg by mouth once daily amlodipine 10 mg, Oral, Daily, High blood pressure Start Date: 11/29/18 Status: Ordered Start: 07-02-2017 End: 05-22-2024 take 1 tablet by mouth once daily Amlodipine 5 mg Tablet Discontinued 5 MG PO Daily July 02, 2017 12:00am February 26, 2024 2:59pm amLODIPine Besyl ate Active chondroitin sulfates 200 mg / glucosamine hydrochloride 250 mg oral tablet (7 sources) Start: 07-02-2017 End: 12-27-2023 take 2 [...] 3:30pm cyclobenzaprine hydrochloride 10 mg oral tablet (6 sources) Muscle Relaxant Start: 07-24-2017 End: 03-04-2019 take 1 tablet by mouth every eight hours as needed for muscle spasms Cyclobenzaprine 10 mg Tablet Discontinued 10 MG PO Every 8 hours as needed for Muscle Spasm 40 July 24, 2017 12:00am March 04, 2019 8:09am docusate sodium 50 mg / sennosides, retirement 8.6 mg oral tablet (6 sources) Start: 07-24-2017 End: 03-04-2019 take 2 tablets by mouth twice daily Sennosides-Docusate Sodium (Dok Plus) 8.6-50 mg Tablet Discontinued 2 TAB PO Twice daily 40 July 24, 2017 12:00am March 04, 2019 8:10am ibuprofen 800 mg oral tablet (15 sources) Nonsteroidal Anti-inflammatory Drug Start: 03-04-2019 End: 06-16-2019 take 1 tablet by mouth three times daily as needed for pain Ibuprofen 800 mg Tablet Discontinued 800 MG PO Three times daily as needed for Pain March 04, 2019 12:00am June 16, 2019 10:03am lutein 6 mg oral tablet (20 sources) Start: 03-04-2019 End: 04-28-2024 take 1 tablet by mouth once daily Lutein 6 mg Tablet Discontinued 6 MG PO Daily March 04, 2019 12:00am April 28, 2024 10:37am Start: 11-29-2018 lutein 5MG/25M G, Oral, Daily, Prophylaxis Start Date: 11/29/18 Status: Ordered Lutein Active naproxen sodium 220 mg oral tablet (12 sources) Nonsteroidal Anti-inflammatory Drug Start: 07-02-2017 End: [...] 02, 2017 12:00am July 24, 2017 8:15am Upton 1-Llr-Jbs-Fish Oil (Fi sh Oil) 1,000 mg (120 mg-180 mg) Capsule (6 sources) Start: 07-02-2017 End: 12-27-2023 Upton 0-Acb-Zvc-Fish Oil (Fi sh Oil) 1,000 mg (120 mg-180 mg) Capsule Discontinued 1200 MG PO Daily July 02, 2017 12:00am December 27, 2023 3:30pm Start: 07-02-2017 End: 12-27-2023 Upton 4-Fhj-Tfw-Fish Oil (Fi sh Oil) 1,000 mg (120 mg-180 mg) Capsule Discontinued 1200 MG PO Daily July 01, 2017 11:00pm December 27, 2023 2:30pm Potassium (20 sources) Start: 04-28-2024 End: 04-28-2024 take 1 tablet by mouth once daily Potassium 20 mg tablet,chewable Discontinued 20 MG PO Daily April 28, 2024 12:00am April 28, 2024 12:44pm Start: 04-28-2024 End: 04-28-2024 take 20 mg by mouth once daily Potassium Discontinued 20 MG PO Daily April 28, 2024 12:00am April 28, 2024 12:44pm Start: 04-28-2024 take 20 mg by mouth once daily Potassium Active 20 MG PO Daily April 28, 2024 12:00am Start: 07-02-2017 End: 03-04-2019 take 1 tablet by mouth once daily Potassium 99 mg Tablet Discontinued 99 MG PO daily July 02, 2017 12:00am March 04, 2019 8:10am Potassium 75 MG tablet Potassium Active Potassium Active pravastatin sodium 80 mg oral tablet (7 sources) HMG-CoA Reductase Inhibitor Start: 07-02-2017 End: 12-27-2023 take 1 tablet by mouth once daily at bedtime Pravastatin 80 mg Tablet Discontinued 80 MG PO Daily at bedtime July 02, 2017 12:00am December 27, 2023 3:30pm solifenacin succinate 10 mg oral tablet (20 sources) Cholinergic Muscarinic Antagonist Start: 11-28-2022 End: 05-22-2024 take 1 tablet by mouth once daily Solifenacin 10 mg tablet Discontinued 10 MG PO Daily December 27, [...] inguinal hernia 11-29-2018 Episodic Acquired foot deformities (15 sources) Right foot drop; Translations: [Foot drop, right foot] Onset: 11-12-2024 08-05-2024 Episodic Cataract (20 sources) Bilateral pseudophakia; Translations: [Presence of intraocular lens] Onset: 03-12-2023 03-12-2023 Chronic Coronary atherosclerosis and other heart disease (20 sources) Coronary arteriosclerosis; Translations: [Recurrent coronary arteriosclerosis after percutaneous transluminal coronary angioplasty] Onset: 04-07-2022 Chronic Comment on above: PCI/stent 06/24 Problem List clean-u p per request of Phys. EHR Cmte Diabetes mellitus without complication (15 sources) Impaired fasting glucose; Translations: [Impaired fasting [...] Translations: [History of falling] 08-05-2024 Episodic Other lower respiratory disease (1 source) Nodule of lung; Translations: [Solitary pulmonary nodule] 02-04-2025 Episodic Comment on above: CT: 3-4mm nodules - 02/2025 Other male genital disorders (20 sources) Impotence; Translations: [Erectile dysfunction] 11-26-2019 Chronic Other male genital disorders (3 sources) Male erectile dysfunction, unspecified; Translations: [Erectile dysfunction] Onset: 11-27-2022 Chronic Other nervous system disorders (7 sources) Neuropathy; Translations: [Polyneuropathy, unspecified] 10-17-2023 Chronic Comment on above: Problem List clean-u p per request of Phys. EHR Cmte Other nervous system disorders (9 sources) Chronic [...] GAIT AND MOBILITY] Onset: 01-10-2023 Episodic Other nervous system disorders (1 source) General unsteadiness; Translations: [Unsteadiness on feet] 06-13-2024 Episodic Other non-traumatic joint disorders (20 sources) [...] Episodic Other nutritional; endocrine; and metabolic disorders (6 sources) Overweight; Translations: [Overweight] 12-27-2023 Episodic Other screening for suspected conditions (not mental disorders or infectious disease) (20 sources) Echocardiogram abnormal; Translations: [Thallium stress test abnormal] Onset: 10-12-2023 11-26-2019 Episodic Comment on above: Problem List clean-u p per request of Phys. EHR Cmte Residual codes; unclassified (5 sources) Memory impairment; Translations: [Other amnesia] 12-29-2023 Episodic Residual codes; unclassified (2 sources) Other amnesia; Translations: [Memory loss] 12-31-2023 Episodic Residual codes; unclassified (1 source) Pain, unspecified; Translations: [Pain, unspecified] Onset: 03-03-2025 Episodic Spondylosis; intervertebral disc disorders; other back problems (20 sources) Spondylosis without myelopathy or radiculopathy, lumbar region; Translations: [Other intervertebral disc displacement, lumbar region] Onset: 04-10-2018 Chronic Comment on above: Problem List clean-u p per request of Phys. EHR Cmte Spondylosis; intervertebral disc disorders; other back problems (9 sources) Degenerative lumbar spinal stenosis; Translations: [Spinal stenosis, lumbar region without neurogenic claudication] 10-17-2023 Episodic Comment on above: Problem List clean-u p per request of Phys. 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; Translations: [retirement (current) use of aspirin] Onset: 04-25-2022 Episodic Other aftercare (1 source) director of agronomy (current) use of antithrombotics/antip latelets; Translations: [director of agronomy (current) use of antithrombotics/antip latelets] Onset: 04-25-2022 [...] of nicotine dependence] Onset: 05-22-2024 05-22-2024 Episodic Sprains and strains (20 sources) Sprain of shoulder rotator cuff; Translations: [Sprain of right rotator cuff capsule, initial encounter] Onset: 03-12-2023 03-12-2023 Episodic Unclassified (6 sources) Never smoked tobacco; Translations: [Never a smoker] Unclassified (2 sources) Low back pain, unspecified M54.50 Unclassified (3 sources) Onset: 11-14-2023 Resolved: 01-28-2025 11-14-2023 Results Test Name Value Interpretation Reference Range Facility Consultation/Specialist Note on 04-07-2025 Consultation/Special ist Note [id number] [facility] Shlomo Pollock 03-11-2025 Shlomo Dominguez --- Final No growth at 5 days. [facility] Comment on above: Performed By: #### C [id number] #### [facility] [address] [place] [id number] Shlomo Dominguez pt care in room. duncan collins check back later 03/06/2025 11:59:19 Beltran Final No growth at 5 days. Normal [facility] Comment on above: Performed By: #### C [id number] #### [address] [address] C Urineon 03-08-2025 C Urine Order added by Darius rn rule. Final >100,000 cfu/ml Proteus mirabilis isolated ORGANISM Promir -- SUSCEPTIBILITY - ORGANISM ID: 1 ANTIBIOTIC INTERPRETATION SHALA STATUS POS Proteus mirabilis Ampicillin/Sulbactam S 8 V Ampicillin R >=32 V Cefazolin R 16 V Cefepime S <=0.12 V Ceftazidime S <=0.5 V Ceftriaxone S <=0.25 V Ciprofloxacin R >=4 V Ertapenem S <=0.12 V Gentamicin S <=1 V Meropenem S 1 V Nitrofurantoin R 128 V Piperacillin/Tazobactam S <=4 V Trimethoprim/Sulfa R [id number] V Normal [facility] Comment on above: Performed By: #### C BC #### [address] [address] Inpatient Clinical Summaryon 03-08-2025 Inpatient Clinical Summary [address] [address] [phone] [address] [phone] Clinical Summary Person Information Name: Ridge Roland Age: 79 Years : 1945 Sex: Male PCP: Devang Hall DO Marital Status: Phone: PCP: Race: White Ethnicity: Not or Language: Gambian Visit Id: Visit Reason: Speciality: Acuity: Enc Type: Inpatient Med Service: Medicine-General Arrival: 02/24/2025 12:00:25 Discharge: Dispo Type: Address: [address] [place] [id number] Preferred Communication Mode: Verbal Preferred Language: Gambian Discharge Diagnosis: Ankle swelling; Bladder incontinence; Chronic constipation; Chronic gout; Chronic lower back pain; Foot drop, bilateral; Hypertension; Lumbar stenosis with neurogenic claudication; OAB (overactive bladder); SOB (shortness of breath) on exertion Discharged To: intermediate facility Mode of Discharge 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: Home Treatments: Devices/Equipment: Professional Skilled Services: Special Services and Community Resources: Discharge Orders: Follow up with Primary Care Provider (PCP) 03/08/25 9:40:00 EDT, 1 to 2 weeks Custodial Facility Certification 03/08/25 9:40:00 EDT, Skilled, I certify intermediate facility stay is anticipated to be LESS than 30 days. Provider to Resume Care: Titi MD to follow., 03/08/25 9:40:00 EDT, 03/08/25 9:40:00 EDT Tube Feeding and Supplements Dietary Supplements 03/05/25 12:31:00 EDT, Ensure Plus High Protein-Vanilla, BID, AUTO SEND vanilla ensure milkshakes with lunch daily. Dietary Supplements 03/02/25 14:08:00 EDT, Magic Cup - Butter Pecan, BID Home Health Consult and Ambulatory Referrals Treatment and Wound Care Clinical [place] Withdrawl Assessment 03/02/25 2:26:00 EDT, q6hr, Q6h and upon/one hours after benzodiazepine administration Compression Drain Care 02/25/25 0:04:00 EDT Indwelling Urinary Catheter Discontinue 02/25/25 0:04:00 EDT, when fully awake, 02/25/25 0:04:00 EDT Neurological Checks 02/25/25 0:04:00 EDT, Stop date 02/25/25 0:04:00 EDT, With vital signs NIH Stroke Scale 03/02/25 8:31:00 EDT, q4hr Surgical Drains 03/04/25 6:11:00 EDT, Hemovac, 03/04/25 6:11:00 EDT Skin Care: Skin Integrity: Localized abnormality Skin Abnormalities: Bruising Lines/Devices/BM Information: Urinary Catheter Type: Indwelling/Continuous Urinary Catheter Size: 16 Fr Urinary Catheter Activity Date: Discontinued Pre-insertion Indwelling Catheter Education: Ostomy Type: GI Tube Type: GI Tube Size: GI Tube Activity Date: Date of Last Bowel Movement: 03/07/25 Functional Status: Sensory Deficits: Uncorrected visual impairment Valuables/Belongings: Glasses, Clothes, Electronics History of Falls Within 6 Months: Yes High Fall Risk Interventions: All low and moderate risk fall interventions, Red high fall risk indicated outside patient room, Yellow gown and red nonskid socks, Bed/chair alarm activated, Best/Direct visual access used, Remain with patient during toileting, Patient transported wit... Activities of Daily Living: ADLs: Moderate assistance Bathing ADL: Requires assistance (1) Dressing ADL: Requires assistance (1) Personal Care Provided: Chux pad changed, Linens changed Bed Mobility Assistance: Two person assistance Ambulation Assistance: Two person assistance Musculoskeletal Abnormality: Gait: Unable to assess Assistive Devices: Special Orthopedic Devices: Current Level of Assistance for Self Care/Mobility: Cognitive Status: Orientation Assessment: Oriented x 4 Level of Consciousness: Alert Characteristics of Speech: Clear Aspiration Risk: None Affect/Behavior: Calm, Cooperative, Forgetful Smoking Status Former smoker, quit more than 5 years ago Laboratory or Other Results This Visit (last charted value for your 02/24/2025 visit) Hematology 03/07/2025 11:46 AM WBC: 9.0 x10 RBC: 3.67 x10 Segs Man: 73 % -- Normal range between ( 49 and 79 ) Lymph Man: 13 % -- Normal range between ( 14 and 42 ) Neutro Auto: 68.3 % -- Normal range between ( 47.2 and 70.8 ) Lymph Auto: 10.9 % -- Normal range between ( 27.2 and 40.8 ) Phelps Auto: 17.2 % -- Normal range between ( 4.7 and 13.9 ) Eos Auto: 3.1 % -- Normal range between ( 0.0 and 6.1 ) Basophil Auto: 0.5 % -- Normal range between ( 0.0 and 1.2 ) Monocyte Man: 4 % -- Normal range between ( 1 and 11 ) Eos Man: 3 % -- Normal range between ( 0 and 7 ) Basophil Man: 0 % -- Normal range between ( 0 and 3 ) Baso Absolute: 0.0 x10 MCV: 90.9 fL -- Normal range between ( 80.0 and 100.0 ) RBC Morph: Normal MCHC: 35.2 % -- Normal range between ( 31.0 and 37.0 ) Myelo Man: 1 % Lymph Absolute: 1.0 x10 Hct: 33.4 % -- Normal range between ( 41.0 and 53.0 ) React Lymph Man: 4 % -- Normal range between ( 0 and 5 ) Mon (more content not included)... Normal [facility] Lyme [facility]ero[facility] 03-08-2025 Lyme Serology-Riesel Negative Normal Negative [facility] Comment on above: Result Comment: No e vidence of antibodies to B. burgdorferi detected. False negative results may occur in recently infected patients (<=2 weeks) due to low or undetectable antibody levels to B. burgdorferi. If recent exposure is suspected, a second sample should be collected and tested in 2-4 weeks. Test Performed by: [facility] [address] [place] [address] Tube Operator: Aaron De Leon Ph.D.; CLIA# [id number] Performed By: #### T #### [address] [address] Orthopedic Progress Noteon 0 03-08-2025 Orthopedic Progress Note Subjective patient doing better today, alert to person and time, able to tell me he is Shawn and states he does remember having back surgery Denies any significant pain but feels stiff all over. patient on antibiotics for UTI Objective Vitals & Measurements T: 36.6 ?C (Oral) HR: 72 (Peripheral) RR: 16 BP: 166/89 SpO2: 98% HT: 193.04 cm HT: 192 cm WT: 108.3 kg BMI: 33.56 BMI: 33.2 Additional Vitals No qualifying data available. Lab Results Microbiology - Current Encounter Culture Blood: Auth (Verified) NEG (03/02/25) Culture Urine: Auth (Verified) POS Critical (03/06/25) Diagnostic Results Diagnostic Radiology XR Chest 1 View 03/05/25 13:41:16 IMPRESSION: No acute findings. Signed By: Kyra Godinez MD Magnetic Resonance Imaging MRI Brain w/o Contrast 03/05/25 22:41:06 IMPRESSION: Within the limitations of motion artifact, no discrete acute intracranial abnormality identified. Mild senescent changes, described above. Signed By: Adan WALTERS, Leeann Physical Exam Awakens to voice, alert and oriented to person, time, place 5/5 bilateral pedal push except 0/5 right TA and 4/5 left TA Medications Inpatient allopurinol, 300 mg, Oral, Daily amLODIPine, 5 mg, Oral, BID cefTRIAXone, 1 g= 50 mL, IV Piggyback, q24hr Colace, 100 mg, Oral, BID Dulcolax Laxative, 10 mg, Oral, Daily, PRN Dulcolax Laxative, 10 mg= 1 supp, Rectal, Daily, PRN Fleet Enema 7 g-19 g rectal enema, 133 mL, Rectal, Daily, PRN folic acid, 1 mg, Oral, Daily heparin, 5000 units= 1 mL, Subcutaneous, e2fb-Apagwssg Times hydroCHLOROthiazide, 25 mg, Oral, Daily Klor-Con M20, 20 mEq, Oral, Daily Lipitor, 40 mg, Oral, HS (at bedtime) losartan, 25 mg, Oral, Daily MiraLax, 17 g= 1 EA, Oral, Daily Multiple Vitamins oral tablet, 1 tabs, Oral, Daily Myrbetriq, 50 mg, Oral, Daily nystatin 100,000 units/g topical powder, 1 hayden, Topical, BID nystatin 100,000 units/g topical powder, 1 hayden, Topical, BID, PRN potassium chloride extended release, 40 mEq, Oral, BIDWM SEROquel, 25 mg, Oral, HS (at bedtime) Tylenol, 650 mg, Oral, l1rb-Kxwyrhir Times, PRN Zofran, 4 mg= 2 mL, IV Push, q4hr, PRN Assessment/Plan POD#12 s/p L2-5 decompression and fusion with durotomy Plan: 1. Tylenol prn pain 2. Activity - as tolerated. PT/OT, back brace when ambulating. 3. AM labs 4. Hospitalist consult and Neuro consult, appreciate input from both specialities 5. Discharge pending - SNF once medically stable Electronically signed by ___ Christian Rae PA-C 03/08/25 07:58 EDT [facility] Progress Note-Nurseon 2024 Progress Note-Nurse Report called to Donna at [facility]. Electronically signed by ___ Susanne Sainz 03/08/25 11:53 EDT [facility] Progress Note-Nurse Attempt to call repo rt to [facility], per staff they wouldn't take report until they reviewed faxed information. Number left with nurse. at bedside here at [facility] and aware of discharge. Electronically signed by ___ Susanne Sainz 03/08/25 11:38 EDT [facility] .eGFRon 03-07-2025 GFR/1.73 sq M.predicted MDRD (S/P/Bld) [Vol rate/Area] mL/min/{1.73_m2} Normal >=60 [facility] Comment on above: Result Comment: [facility] have implemented the eGFR calculation approach that does not have a coefficient for race and that conforms to the NKF-ASN Task Force Recommendations. Stages of Chronic Kidney Disease GFR Stage 3a Mild to moderate loss of kidney function 59 to 45 Stage 3b Moderate to severe loss of kidney function 44 to 33 Stage 4 Severe loss of kidney function 29 to 15 Stage 5 Kidney failure Less than 15 GFR calculated using the CKD-Epi Creatinine Equation (2020): eGFR = 142 X min(SCr/?, 1)? X max(SCr /?, 1)-1.200 X 0.9938Age X 1.012 [if female] Abbreviations/Units: eGFR (estimated glomerular filtration rate) = mL/min/1.73 m2 SCr (standardized serum creatinine) = mg/dL ? = 0.7 (females) or 0.9 (males) ? = -0.241 (females) or -0.302 (males) min = indicates the minimum of SCr/? or 1 max = indicates the maximum of SCr/? or 1 Age = years Performed By: #### C BC #### [place] [id number] C Bldon 03-07-2025 C Bld --- Final No growth at 5 days. Normal [facility] Comment on above: Performed By: #### B LDC ####[place] [id number] Performed By: #### C BC #### [address] [address] CBC w/ Diffon 03-07-2025 Erythrocyte distribution width (RBC) [Ratio] 13.8 % Normal 11.6-14.8 [facility] Comment on above: Performed By: #### T SH #### [place] [id number] Hematocrit (Bld) [Volume fraction] 33.4 % Low 41.0-53.0 [facility] Comment on above: Performed By: #### T SH #### [address] [address] Hemoglobin (Bld) [Mass/Vol] 11.7 g/dL Low 13.5-17.5 [facility] Comment on above: Performed By: #### T SH #### [address] [address] MCH (RBC) [Entitic mass] 32.0 pg Normal 27.0-35.0 [facility] Comment on above: Performed By: #### T SH #### [address] [address] MCHC 35.2 % Normal 31.0-37.0 [facility] Comment on above: Performed By: #### T SH #### [address] [address] MCV (RBC) [Entitic vol] 90.9 fL Normal 80.0-100.0 [facility] Comment on above: Performed By: #### T SH #### [address] [address] Platelet 324 x10*3/mcL Normal 150-450 [facility] Comment on above: Performed By: #### T SH #### [address] [address] Platelet mean volume (Bld) [Entitic vol] 7.8 fL Normal 6.7-10.6 [facility] Comment on above: Performed By: #### T SH #### [address] [address] RBC 3.67 x10*6/mcL Low 4.30-5.80 [facility] Comment on above: Performed By: #### T SH #### [address] [address] WBC 9.0 x10*3/mcL Normal 4.5-11.0 [facility] Comment on above: Performed By: #### T SH #### [address] [address] CMPon 03-07-2025 Albumin [Mass/Vol] 3.0 g/dL Low 3.2-4.9 [facility] Comment on above: Performed By: #### C OMP ####[address] [address] Albumin/Globulin [Mass ratio] 0.9 {ratio} Low 1.1-2.2 [facility] Comment on above: Performed By: #### C OMP ####[address] [place] [address] Alk Phos 97 IU/L High 32-91 [facility] Comment on above: Performed By: #### C OMP ####[address] [address] ALT [Catalytic activity/Vol] 34 U/L Normal 17-63 [facility] Comment on above: Performed By: #### C OMP ####[address] [address] Anion gap [Moles/Vol] 9 mmol/L Normal 4-12 [facility] Comment on above: Performed By: #### C OMP ####[address] [address] AST [Catalytic activity/Vol] 30 U/L Normal 15-41 [facility] Comment on above: Performed By: #### C OMP ####[address] [address] Bili Total 0.8 mg/dL Normal 0.3-1.2 [facility] Comment on above: Performed By: #### C OMP ####[address] [address] BUN Crea Ratio 32.4 ratio High 10.0-20.0 [facility] Comment on above: Performed By: #### C OMP ####[address] [address] Calcium [Mass/Vol] 8.7 mg/dL Normal 8.6-10.3 [facility] Comment on above: Performed By: #### C OMP ####[address] [address] Chloride [Moles/Vol] 94 mmol/L Low 98-110 [facility] Comment on above: Performed By: #### C OMP ####[address] [address] CO2 [Moles/Vol] 27 mmol/L Normal 22-32 [facility] Comment on above: Performed By: #### C OMP ####[address] [address] Creatinine [Mass/Vol] 0.71 mg/dL Normal 0.61-1.24 [facility] Comment on above: Performed By: #### C OMP ####[address] [address] Glucose [Mass/Vol] 121 mg/dL High 70-99 [facility] Comment on above: Performed By: #### C OMP ####[address] [address] Potassium [Moles/Vol] 3.0 mmol/L Low 3.4-4.8 [facility] Comment on above: Performed By: #### C OMP ####[address] [address] Protein [Mass/Vol] 6.2 g/dL Low 6.5-8.1 [facility] Comment on above: Performed By: #### C OMP ####[address] [address] Sodium [Moles/Vol] 130 mmol/L Low 133-142 [facility] Comment on above: Performed By: #### C OMP ####[address] [address] Urea nitrogen [Mass/Vol] 23 mg/dL Normal 8-26 [facility] Comment on above: Performed By: #### C OMP ####[address] [address] Diff Autoon 03-07-2025 Baso Absolute 0.0 x10*3/mcL Normal 0.0-0.2 [facility] Comment on above: Performed By: #### C BC #### [address] [address] Basophils/100 WBC (Bld) 0.5 % Normal 0.0-1.2 [facility] Comment on above: Performed By: #### C BC #### [address] [address] Eos Absolute 0.3 x10*3/mcL Normal 0.0-0.4 [facility] Comment on above: Performed By: #### C BC #### [address] [address] Eosinophils/100 WBC (Bld) 3.1 % Normal 0.0-6.1 [facility] Comment on above: Performed By: #### C BC #### [address] [address] Lymph Absolute 1.0 x10*3/mcL Normal 1.0-4.8 [facility] Comment on above: Performed By: #### C BC #### [address] [address] Lymphocytes/100 WBC (Bld) 10.9 % Low 27.2-40.8 [facility] Comment on above: Performed By: #### C BC #### [address] [address] Phelps Absolute 1.6 x10*3/mcL High 0.3-1.1 [facility] Comment on above: Performed By: #### C BC #### [address] [address] Monocytes/100 WBC (Bld) 17.2 % High 4.7-13.9 [facility] Comment on above: Performed By: #### C BC #### [address] [address] Neutro Absolute 6.2 x10*3/mcL Normal 1.8-7.7 [facility] Comment on above: Performed By: #### C BC #### [address] [address] Neutro Auto 68.3 % Normal 47.2-70.8 [facility] Comment on above: Performed By: #### C BC #### [address] [address] Diff Nadia 03-07-2025 Band form neutrophils/100 WBC (Bld) 2 % Normal 0-5 [facility] Comment on above: Performed By: #### . Manual Diff ####[address] [address] Basophils/100 WBC (Bld) 0 % Normal 0-3 [facility] Comment on above: Performed By: #### . Manual Diff ####[address] [address] Eosinophils/100 WBC (Bld) 3 % Normal 0-7 [facility] Comment on above: Performed By: #### . Manual Diff ####[address] [address] Lymphocytes/100 WBC (Bld) 13 % Low 14-42 [facility] Comment on above: Performed By: #### . Manual Diff ####[address] [address] Monocytes/100 WBC (Bld) 4 % Normal 1-11 [facility] Comment on above: Performed By: #### . Manual Diff ####[address] [address] Myelo Man 1 % High 0-0 [facility] Comment on above: Performed By: #### . Manual Diff ####[address] [address] Platelet estimate Adequate Normal [facility] Comment on above: Performed By: #### . Manual Diff ####[address] [address] RBC morphology finding Nom (Bld) Normal Normal [facility] Comment on above: Performed By: #### . Manual Diff ####[address] [address] React Lymph Man 4 % Normal 0-5 [facility] Comment on above: Performed By: #### . Manual Diff ####[address] [address] Segs Man 73 % Normal 49-79 [facility] Comment on above: Performed By: #### . Manual Diff ####[address] [address] Orthopedic Progress Noteon 0 03-07-2025 Orthopedic Progress Note Subjective Patient sitting up in bed. Very lethargic, able to answer yes or no questions Denies pain at this time +BM Objective Vitals & Measurements T: 36.7 ?C (Axillary) HR: 67 (Peripheral) RR: 18 BP: 144/77 SpO2: 97% HT: 193.04 cm HT: 192 cm WT: 108.3 kg BMI: 33.56 BMI: 33.2 Additional Vitals No qualifying data available. Lab Results Microbiology - Current Encounter No qualifying data available. Diagnostic Results Diagnostic Radiology XR Chest 1 View 03/05/25 13:41:16 IMPRESSION: No acute findings. Signed By: Kyra Godinez MD Magnetic Resonance Imaging MRI Brain w/o Contrast 03/05/25 22:41:06 IMPRESSION: Within the limitations of motion artifact, no discrete acute intracranial abnormality identified. Mild senescent changes, described above. Signed By: Adan WALTERS, Leeann Medications Inpatient allopurinol, 300 mg, Oral, Daily amLODIPine, 5 mg, Oral, BID cefepime, 2 g= 50 mL, IV Piggyback, q12hr Colace, 100 mg, Oral, BID Detrol LA, 4 mg, Oral, HS (at bedtime) Dulcolax Laxative, 10 mg, Oral, Daily, PRN Dulcolax Laxative, 10 mg= 1 supp, Rectal, Daily, PRN Fleet Enema 7 g-19 g rectal enema, 133 mL, Rectal, Daily, PRN folic acid, 1 mg, Oral, Daily heparin, 5000 units= 1 mL, Subcutaneous, d4jw-Mediedhi Times hydroCHLOROthiazide, 25 mg, Oral, Daily Klor-Con M20, 20 mEq, Oral, Daily Lipitor, 40 mg, Oral, HS (at bedtime) losartan, 25 mg, Oral, Daily MiraLax, 17 g= 1 EA, Oral, Daily Multiple Vitamins oral tablet, 1 tabs, Oral, Daily Myrbetriq, 50 mg, Oral, Daily nystatin 100,000 units/g topical powder, 1 hayden, Topical, BID nystatin 100,000 units/g topical powder, 1 hayden, Topical, BID, PRN SEROquel, 25 mg, Oral, HS (at bedtime) Tylenol, 650 mg, Oral, m1wk-Ljnzfith Times, PRN Zofran, 4 mg= 2 mL, IV Push, q4hr, PRN Assessment/Plan POD#11 s/p L2-5 decompression and fusion with durotomy Plan: 1. Tylenol prn pain 2. Activity - as tolerated. PT/OT, back brace when ambulating. If patient develops a headache, have him lay flat 3. AM labs pending - 4. Hospitalist consult and Neuro consult, appreciate input from both specialities 5. Discharge pending - SNF once medically stable Electronically signed by ___ Kirk Weber PA-C 03/07/25 10:17 EDT Normal [facility] Progress Note-Nurseon 2024 Progress Note-Nurse Nurse notified provi rosina that patient is lethargic this morning, did attempt to give PO water, patient not able to tolerate, notified that Rn did not feel comfortable to administer PO medications, requested provider to review meds and adjust to IV as appropriate. Electronically signed by ___ Susanne Sainz 03/07/25 10:10 EDT Normal [facility] SPEPon 03-07-2025 Albumin/Globulin [Mass ratio] 1.4 {ratio} Normal 1.1-2.2 [facility] Comment on above: Performed By: #### C BC #### [address] [address] Protein Electrophoresis Interpretation Normal [facility] Comment on above: Result Comment: Alexandra pheral blood smear findings: Hypogammaglobulinemia. There is no abnormal protein identified in the serum. Authenticated by: Zaina Ramesh M.D. Date/Time: 03/07/2025 11:17:21 EDT Performed By: #### C BC #### [address] [address] .UA Microscp Aon 03-06-2025 UA Bacteria Present Abnormal Absent [facility] Comment on above: Performed By: #### C [id number] #### [place] [address] UA CA Phosphate Cryst Present Abnormal Absent [facility] Comment on above: Performed By: #### C [id number] #### [place] [address] UA Mucus Present Normal Absent [facility] Comment on above: Performed By: #### C [id number] #### [place] [address] UA RBC Quant 4 /HPF Normal 0-5 [facility] Comment on above: Performed By: #### C [id number] #### [place] [address] UA Squepi Cells Quant <1 Normal 0-29 [facility] Comment on above: Performed By: #### C [id number] #### [place] [id number] UA WBC Quant 51 /HPF High 0-5 [facility] Comment on above: Performed By: #### C [id number] #### [place] [address] .eGFRon 03-06-2025 GFR/1.73 sq M.predicted MDRD (S/P/Bld) [Vol rate/Area] mL/min/{1.73_m2} Normal >=60 [facility] Comment on above: Result Comment: [facility] Laboratories have implemented the eGFR calculation approach that does not have a coefficient for race and that conforms to the NKF-ASN Task Force Recommendations. Stages of Chronic Kidney Disease GFR Stage 3a Mild to moderate loss of kidney function 59 to 45 Stage 3b Moderate to severe loss of kidney function 44 to 33 Stage 4 Severe loss of kidney function 29 to 15 Stage 5 Kidney failure Less than 15 GFR calculated using the CKD-Epi Creatinine Equation (2020): eGFR = 142 X min(SCr/?, 1)? X max(SCr /?, 1)-1.200 X 0.9938Age X 1.012 [if female] Abbreviations/Units: eGFR (estimated glomerular filtration rate) = mL/min/1.73 m2 SCr (standardized serum creatinine) = mg/dL ? = 0.7 (females) or 0.9 (males) ? = -0.241 (females) or -0.302 (males) min = indicates the minimum of SCr/? or 1 max = indicates the maximum of SCr/? or 1 Age = years Performed By: #### C BC #### [address] [address] CMPon 03-06-2025 Albumin [Mass/Vol] 3.2 g/dL Normal 3.2-4.9 [facility] Comment on above: Performed By: #### T SH #### [address] [address] Albumin/Globulin [Mass ratio] 1.0 {ratio} Low 1.1-2.2 [facility] Comment on above: Performed By: #### T SH #### [address] [address] Alk Phos 89 IU/L Normal 32-91 [facility] Comment on above: Performed By: #### T SH #### [address] [address] ALT [Catalytic activity/Vol] 28 U/L Normal 17-63 [facility] Comment on above: Performed By: #### T SH #### [address] [address] Anion gap [Moles/Vol] 8 mmol/L Normal 4-12 [facility] Comment on above: Performed By: #### T SH #### [address] [address] AST [Catalytic activity/Vol] 27 U/L Normal 15-41 [facility] Comment on above: Performed By: #### T SH #### [address] [address] Bili Total 0.7 mg/dL Normal 0.3-1.2 [facility] Comment on above: Performed By: #### T SH #### [facility] [address] [place] [address] BUN Crea Ratio 34.1 ratio High 10.0-20.0 [facility] Comment on above: Performed By: #### T SH #### [facility] [address] [place] [address] Calcium [Mass/Vol] 8.9 mg/dL Normal 8.6-10.3 [facility] Comment on above: Performed By: #### T SH #### [facility] [address] [place] [address] Chloride [Moles/Vol] 97 mmol/L Low 98-110 [facility] Comment on above: Performed By: #### T SH #### [facility] [address] [place] [address] CO2 [Moles/Vol] 25 mmol/L Normal 22-32 [facility] Comment on above: Performed By: #### T SH #### [facility] [address] [place] [address] Creatinine [Mass/Vol] 0.91 mg/dL Normal 0.61-1.24 [facility] Comment on above: Performed By: #### T SH #### [facility] [address] [place] [address] [place] [address] Glucose [Mass/Vol] 144 mg/dL High 70-99 [facility] Comment on above: Performed By: #### T SH #### [address] [place] [address] Potassium [Moles/Vol] 3.2 mmol/L Low 3.4-4.8 [facility] Comment on above: Performed By: #### T SH #### [address] [place] [address] Protein [Mass/Vol] 6.3 g/dL Low 6.5-8.1 [facility] Comment on above: Performed By: #### T SH #### [facility] [address] [place] [address] Sodium [Moles/Vol] 130 mmol/L Low 133-142 [facility] Comment on above: Performed By: #### T SH #### [facility] [address] [place] [address] Urea nitrogen [Mass/Vol] 31 mg/dL High 8-26 [facility] Comment on above: Performed By: #### T SH #### [facility] [address] [place] [address] Orthopedic Progress Noteon 0 03-06-2025 Orthopedic Progress Note Subjective attempted to see patient this am, off floor to vascular Discussed with nurse repeat UA positive No acute findings on repeat MRI AM labs pending Objective Vitals & Measurements T: 36.8 ?C (Oral) HR: 89 (Peripheral) RR: 17 BP: 145/70 SpO2: 96% HT: 193.04 cm HT: 192 cm WT: 107.2 kg BMI: 33.56 BMI: 33.2 Additional Vitals No qualifying data available. Lab Results Microbiology - Current Encounter No qualifying data available. Diagnostic Results Diagnostic Radiology XR Chest 1 View 03/05/25 13:41:16 IMPRESSION: No acute findings. Signed By: Kyra Godinez MD Magnetic Resonance Imaging MRI Brain w/o Contrast 03/05/25 22:41:06 IMPRESSION: Within the limitations of motion artifact, no discrete acute intracranial abnormality identified. Mild senescent changes, described above. Signed By: Adan WALTERS, Leeann Medications Inpatient allopurinol, 300 mg, Oral, Daily amLODIPine, 5 mg, Oral, BID Colace, 100 mg, Oral, BID Detrol LA, 4 mg, Oral, HS (at bedtime) Dulcolax Laxative, 10 mg, Oral, Daily, PRN Dulcolax Laxative, 10 mg= 1 supp, Rectal, Daily, PRN Fleet Enema 7 g-19 g rectal enema, 133 mL, Rectal, Daily, PRN folic acid, 1 mg, Oral, Daily heparin, 5000 units= 1 mL, Subcutaneous, [id number] Times hydroCHLOROthiazide, 25 mg, Oral, Daily Klor-Con M20, 20 mEq, Oral, Daily Lipitor, 40 mg, Oral, HS (at bedtime) losartan, 25 mg, Oral, Daily MiraLax, 17 g= 1 EA, Oral, Daily Multiple Vitamins oral tablet, 1 tabs, Oral, Daily Myrbetriq, 50 mg, Oral, Daily SEROquel, 25 mg, Oral, HS (at bedtime) thiamine, 100 mg= 1 mL, IV Push, Daily Tylenol, 650 mg, Oral, [id number] Times, PRN Zofran, 4 mg= 2 mL, IV Push, q4hr, PRN Assessment/Plan POD#10 s/p L2-5 decompression and fusion with durotomy Plan: 1. Tylenol prn pain 2. Activity - as tolerated. PT/OT, back brace when ambulating. If patient develops a headache, have him lay flat 3. AM labs pending - 4. Hospitalist consult for worsening confusion, work up negative. Neuro has been consulted, appreciate input from both specialities 5. Discharge pending - SNF once medically stable Electronically signed by ___ Christian Rae PA-C 03/06/25 08:49 EDT Normal [facility] SPEPon 03-06-2025 Albumin Lvl 3.22 g/mL Normal 3.00-5.00 [facility] Comment on above: Performed By: #### C BC #### [address] [address] Alpha 1 Glob 0.21 g/dL Normal 0.13-0.33 [facility] Comment on above: Performed By: #### C BC #### [address] [address] Alpha 2 Glob 0.83 g/dL Normal 0.56-1.13 [facility] Comment on above: Performed By: #### C BC #### [address] [address] Beta Glob 0.74 g/dL Normal 0.60-1.25 [facility] Comment on above: Performed By: #### C BC #### [place] [address] Gamma Globulin 0.51 g/dL Low 0.53-1.48 [facility] Comment on above: Performed By: #### C BC #### [place] [id number] UA w Culture if Indon 2024 Color (U) Yellow Normal Yellow [facility] Comment on above: Order Comment: If pa tient catheterized >2 days, discontinue current catheter, and insert new catheter prior to collection Performed By: #### U CI ####[place] [address] Ketones Ql (U) Negative Normal Negative [facility] Comment on above: Order Comment: If pa tient catheterized >2 days, discontinue current catheter, and insert new catheter prior to collection Performed By: #### U CI ####[place] [id number] UA Blood Negative Normal Negative [facility] Comment on above: Order Comment: If pa tient catheterized >2 days, discontinue current catheter, and insert new catheter prior to collection Performed By: #### U CI ####[place] [id number] UA Clarity Turbid Normal Clear [facility] Comment on above: Order Comment: If pa tient catheterized >2 days, discontinue current catheter, and insert new catheter prior to collection Performed By: #### U CI ####[place] [id number] UA Glucose Normal Normal Negative [facility] Comment on above: Order Comment: If pa tient catheterized >2 days, discontinue current catheter, and insert new catheter prior to collection Performed By: #### U CI ####[place] [id number] UA Leukocyte Esterase 500 Abnormal Negative [facility] Comment on above: Order Comment: If pa tient catheterized >2 days, discontinue current catheter, and insert new catheter prior to collection Performed By: #### U CI ####[place] [address] UA Nitrite 2+ Abnormal Negative [facility] Comment on above: Order Comment: If pa tient catheterized >2 days, discontinue current catheter, and insert new catheter prior to collection Performed By: #### U CI ####[place] [address] UA pH 8.0 Abnormal 4.5 - 7.8 [facility] Comment on above: Order Comment: If pa tient catheterized >2 days, discontinue current catheter, and insert new catheter prior to collection Performed By: #### U CI ####[place] [address] UA Protein 100 mg/dL Abnormal Negative [facility] Comment on above: Order Comment: If pa tient catheterized >2 days, discontinue current catheter, and insert new catheter prior to collection Performed By: #### U CI ####[place] [address] UA Source Catheter Normal [facility] Comment on above: Order Comment: If pa tient catheterized >2 days, discontinue current catheter, and insert new catheter prior to collection Performed By: #### U CI ####[place] [address] UA Spec Grav 1.025 Normal 1.003-1.035 [facility] Comment on above: Order Comment: If pa tient catheterized >2 days, discontinue current catheter, and insert new catheter prior to collection Performed By: #### U CI ####[place] [address] UA Urobilinogen Normal Normal 0.2 - 1.0 [facility] Comment on above: Order Comment: If pa tient catheterized >2 days, discontinue current catheter, and insert new catheter prior to collection Performed By: #### U CI ####[place] [address] Urobilinogen (U) [Mass/Vol] Negative Normal Negative [facility] Comment on above: Order Comment: If pa tient catheterized >2 days, discontinue current catheter, and insert new catheter prior to collection Performed By: #### U ####[address] Extremity Venous Duplex L mike Keating 03-06-2025 VL Extremity Venous Duplex Lower Mohinder Preliminary Technologist Report A bilateral lower extremity venous study was performed. Technically difficult exam due to patient movement and confusion. Right lower extremity: Appeared to be a normal venous study of the visualized veins of the right lower extremity. No evidence of acute or chronic deep venous thrombosis (DVT). Limited visualization of the popliteal, posterior tibial, and peroneal veins due to patient positioning and movement but appeared to be patent. Left lower extremity: Appeared to be a normal venous study of the visualized veins of the left lower extremity. No evidence of acute or chronic DVT. Limited visualization of the popliteal and posterior tibial veins due to patient positioning and movement but appeared to be patent. Unable to visualized the peroneal veins due to patient positioning and movement. Preliminary results were called to Donna JENNINGS on 6th floor at 08:00. Washing Tub Operator: Jaylene Henriquez RVT Radiologist Report Procedure: Bilateral lower extremity venous duplex Doppler. Technique: Real-time grayscale, color-flow Doppler, and duplex Doppler imaging of the deep and superficial veins supplemented with compression and augmentation. Clinical History: 79-year-old male with recent back surgery 02/24/2025. Bilateral ankle and leg swelling. Comparison: None. Findings: Deep Veins: Limited visualization of popliteal and calf veins bilaterally as detailed above. No visualized thrombus. Normal compression and augmentation. Venous duplex: Antegrade monophasic flow. Superficial Veins: Color Doppler flow within the great saphenous veins. Varicosities: None. Collaterals: Unremarkable. Other: Unremarkable. IMPRESSION: Suboptimal evaluation of several veins. No evidence for DVT of bilateral lower extremities. Final Signed by: Jesse Hernández MD Signed (Electronic Signature): 03.06.2025 8:30 am Transcribed by: Jesse Hernández MD Transcribed DT/TM: 03.06.2025 8:08 (If Report is Signed, Electronically Signed in Other Vendor System) Normal [facility] .eGFRon 03-05-2025 GFR/1.73 sq M.predicted MDRD (S/P/Bld) [Vol rate/Area] mL/min/{1.73_m2} Normal >=60 [facility] Comment on above: Result Comment: [facility] Laboratories have implemented the eGFR calculation approach that does not have a coefficient for race and that conforms to the NKF-ASN Task Force Recommendations. Stages of Chronic Kidney Disease GFR Stage 3a Mild to moderate loss of kidney function 59 to 45 Stage 3b Moderate to severe loss of kidney function 44 to 33 Stage 4 Severe loss of kidney function 29 to 15 Stage 5 Kidney failure Less than 15 GFR calculated using the CKD-Epi Creatinine Equation (2020): eGFR = 142 X min(SCr/?, 1)? X max(SCr /?, 1)-1.200 X 0.9938Age X 1.012 [if female] Abbreviations/Units: eGFR (estimated glomerular filtration rate) = mL/min/1.73 m2 SCr (standardized serum creatinine) = mg/dL ? = 0.7 (females) or 0.9 (males) ? = -0.241 (females) or -0.302 (males) min = indicates the minimum of SCr/? or 1 max = indicates the maximum of SCr/? or 1 Age = years Performed By: #### C BC #### [address] [address] Ammoniaon 03-05-2025 Ammonia (P) [Moles/Vol] 24 umol/L Normal 9-35 [facility] Comment on above: Performed By: #### T SH #### [address] [address] Basic Metabolic Profileon Anion gap [Moles/Vol] 9 mmol/L Normal 4-12 [facility] Comment on above: Performed By: #### . Manual Diff #### [address] [address] Calcium [Mass/Vol] 9.0 mg/dL Normal 8.5-10.3 [facility] Comment on above: Performed By: #### . Manual Diff #### [address] [address] Chloride [Moles/Vol] 97 mmol/L Low 98-110 [facility] Comment on above: Performed By: #### . Manual Diff #### [address] [address] CO2 [Moles/Vol] 27 mmol/L Normal 22-32 [facility] Comment on above: Performed By: #### . Manual Diff #### [address] [address] Creatinine [Mass/Vol] 0.77 mg/dL Normal 0.61-1.24 [facility] Comment on above: Performed By: #### . Manual Diff #### [address] [address] Glucose [Mass/Vol] 138 mg/dL High 70-99 [facility] Comment on above: Performed By: #### . Manual Diff #### [address] [address] Potassium [Moles/Vol] 3.6 mmol/L Normal 3.4-4.8 [facility] Comment on above: Performed By: #### . Manual Diff #### [address] [address] Sodium [Moles/Vol] 133 mmol/L Normal 133-142 [facility] Comment on above: Performed By: #### . Manual Diff #### [address] [address] Urea nitrogen [Mass/Vol] 26 mg/dL Normal 8-26 [facility] Comment on above: Performed By: #### . Manual Diff #### [address] [address] Urea nitrogen/Creatinine [Mass ratio] 33.8 mg/mg High 10.0-20.0 [facility] Comment on above: Performed By: #### . Manual Diff #### [place] [id number] CBC w/ Diffon 03-05-2025 Erythrocyte distribution width (RBC) [Ratio] 13.6 % Normal 11.6-14.8 [facility] Comment on above: Performed By: #### C BC ####[place] [id number] Hematocrit (Bld) [Volume fraction] 33.4 % Low 41.0-53.0 [facility] Comment on above: Performed By: #### C BC ####[place] [id number] Hemoglobin (Bld) [Mass/Vol] 11.0 g/dL Low 13.5-17.5 [facility] Comment on above: Performed By: #### C BC ####[place] [id number] MCH (RBC) [Entitic mass] 30.6 pg Normal 27.0-35.0 [facility] Comment on above: Performed By: #### C BC ####[place] [id number] MCHC 32.8 % Normal 31.0-37.0 [facility] Comment on above: Performed By: #### C BC ####[place] [id number] MCV (RBC) [Entitic vol] 93.1 fL Normal 80.0-100.0 [facility] Comment on above: Performed By: #### C BC ####[place] [id number] Platelet 293 x10*3/mcL Normal 150-450 [facility] Comment on above: Performed By: #### C BC ####[place] [id number] Platelet mean volume (Bld) [Entitic vol] 8.2 fL Normal 6.7-10.6 [facility] Comment on above: Performed By: #### C BC ####[address] [address] RBC 3.59 x10*6/mcL Low 4.30-5.80 [facility] Comment on above: Performed By: #### C BC ####[address] [address] WBC 17.2 x10*3/mcL High 4.5-11.0 [facility] Comment on above: Performed By: #### C BC ####[address] [address] Diff Autoon 03-05-2025 Baso Absolute 0.0 x10*3/mcL Normal 0.0-0.2 [facility] Comment on above: Performed By: #### . Automated Diff ####[address] [address] Basophils/100 WBC (Bld) 0.2 % Normal 0.0-1.2 [facility] Comment on above: Performed By: #### . Automated Diff ####[address] [address] Eos Absolute 0.1 x10*3/mcL Normal 0.0-0.4 [facility] Comment on above: Performed By: #### . Automated Diff ####[address] [address] Eosinophils/100 WBC (Bld) 0.3 % Normal 0.0-6.1 [facility] Comment on above: Performed By: #### . Automated Diff ####[address] [address] Lymph Absolute 0.8 x10*3/mcL Low 1.0-4.8 [facility] Comment on above: Performed By: #### . Automated Diff ####[address] [address] Lymphocytes/100 WBC (Bld) 4.5 % Low 27.2-40.8 [facility] Comment on above: Performed By: #### . Automated Diff ####[address] [address] Phelps Absolute 1.5 x10*3/mcL High 0.3-1.1 [facility] Comment on above: Performed By: #### . Automated Diff ####[address] [address] Monocytes/100 WBC (Bld) 8.9 % Normal 4.7-13.9 [facility] Comment on above: Performed By: #### . Automated Diff ####[address] [address] Neutro Absolute 14.8 x10*3/mcL High 1.8-7.7 [facility] Comment on above: Performed By: #### . Automated Diff ####[address] [address] Neutro Auto 86.1 % High 47.2-70.8 [facility] Comment on above: Performed By: #### . Automated Diff ####[address] [address] Diff Nadia 03-05-2025 Band form neutrophils/100 WBC (Bld) 0 % Normal 0-5 [facility] Comment on above: Performed By: #### . Manual Diff #### [address] [address] Basophils/100 WBC (Bld) 0 % Normal 0-3 [facility] Comment on above: Performed By: #### . Manual Diff #### [address] [address] Eosinophils/100 WBC (Bld) 0 % Normal 0-7 [facility] Comment on above: Performed By: #### . Manual Diff #### [address] [address] Lymphocytes/100 WBC (Bld) 13 % Low 14-42 [facility] Comment on above: Performed By: #### . Manual Diff #### [address] [address] [place] Man 1 % Normal 0-1 [facility] Comment on above: Performed By: #### . Manual Diff #### [place] [address] [place] [address] Monocytes/100 WBC (Bld) 3 % Normal 1-11 [facility] Comment on above: Performed By: #### . Manual Diff #### [place] [address] [place] [address] Platelet estimate Adequate Normal [facility] Comment on above: Performed By: #### . Manual Diff #### [place] [address] [place] [address] RBC morphology finding Nom (Bld) Normal Normal [facility] Comment on above: Performed By: #### . Manual Diff #### [address] [address] Segs Man 83 % High 49-79 [facility] Comment on above: Performed By: #### . Manual Diff #### [address] [address] MRI Brain w/o Contraston MRI Brain w/o Contrast EXAM: MRI Brain w/o Contrast HISTORY: Headache, COMPARISON: CT and MRI brain 03/02/2025 TECHNIQUE: MRI of the brain was performed without contrast. FINDINGS: Exam is distorted secondary to motion artifact. Findings are made within these confines. There is no restricted diffusion to suggest acute infarct. There is no midline shift, mass effect, or abnormal extraaxial fluid collections. There is mild generalized cerebral atrophy. There are a few nonspecific scattered foci of T2/FLAIR signal abnormality are identified in the supratentorial white matter, likely reflect chronic microvascular ischemic changes. The major intracranial flow voids are visualized. The cerebellar tonsils are normal in position. The orbits are unremarkable. The paranasal sinuses show no air-fluid level. The mastoid air cells are clear. The calvarium and extracranial soft tissues are unremarkable. IMPRESSION: Within the limitations of motion artifact, no discrete acute intracranial abnormality identified. Mild senescent changes, described above. Final Dictated by: Leeann Arellano MD Dictated DT/TM: 03/05/2025 10:31 pm Signed by: Leeann Arellano MD Signed (Electronic Signature): 03/05/2025 10:41 pm (If Report Is Signed, Electronically Signed in Other Vendor System) Normal [facility] Orthopedic Progress Noteon 0 03-05-2025 Orthopedic Progress Note Subjective patient falls back asleep throughout questioning this am, answers yes and no but difficult to understand past that Denies headache, denies back pain this morning Oriented to place and year, not situation Neuro consulted Objective Vitals & Measurements T: 36.9 ?C (Oral) HR: 88 (Peripheral) RR: 18 BP: 156/79 SpO2: 97% HT: 193.04 cm HT: 192 cm WT: 110.8 kg BMI: 33.56 BMI: 33.2 Additional Vitals No qualifying data available. Lab Results Microbiology - Current Encounter No qualifying data available. Diagnostic Results Computed Tomography CT Brain w/o Contrast 03/02/25 08:24:30 IMPRESSION: No acute intracranial abnormality. Brain atrophy unchanged. Signed By: Neftali Feliciano MD Magnetic Resonance Imaging MRI Brain and MRA Head w/o Contrast 03/02/25 11:56:54 IMPRESSION: 1. Motion degraded MRI of the brain without definite acute intracranial abnormality. 2. Mild generalized parenchymal volume loss. Nonspecific scattered white matter T2 hyperintensities, probably mild chronic microvascular ischemic change. 3. Motion degraded MRA of the head. Poor visualization of the A1 segment of the left anterior cerebral artery and portions of the nondominant right vertebral artery, probably due to diminutive caliber/hypoplasia or secondary to motion, however areas of stenosis are not excluded. Marked motion degradation of the A2 and A3 segments of the anterior cerebral arteries and distal middle cerebral arteries. Consider repeat evaluation as clinically warranted and feasible or correlation with CT angiography if continued clinical concern for arterial stenosis. Signed By: Juan Alberto Baeza MD Physical Exam Drains removed, dressing - C/D/I alert and oriented to person, place, time, but not situation difficult to understand during the conversation and falls back asleep easily Medications Inpatient allopurinol, 300 mg, Oral, Daily amLODIPine, 5 mg, Oral, BID Colace, 100 mg, Oral, BID Detrol LA, 4 mg, Oral, HS (at bedtime) Dulcolax Laxative, 10 mg, Oral, Daily, PRN Dulcolax Laxative, 10 mg= 1 supp, Rectal, Daily, PRN Fleet Enema 7 g-19 g rectal enema, 133 mL, Rectal, Daily, PRN folic acid, 1 mg, Oral, Daily heparin, 5000 units= 1 mL, Subcutaneous, [id number] Times hydroCHLOROthiazide, 25 mg, Oral, Daily Klor-Con M20, 20 mEq, Oral, Daily Lipitor, 40 mg, Oral, HS (at bedtime) losartan, 25 mg, Oral, Daily MiraLax, 17 g= 1 EA, Oral, Daily Multiple Vitamins oral tablet, 1 tabs, Oral, Daily Myrbetriq, 50 mg, Oral, Daily SEROquel, 25 mg, Oral, HS (at bedtime) thiamine, 100 mg= 1 mL, IV Push, Daily Tylenol, 650 mg, Oral, [id number] Times, PRN Zofran, 4 mg= 2 mL, IV Push, q4hr, PRN Assessment/Plan POD#9 s/p L2-5 decompression and fusion with durotomy Plan: 1. Tylenol prn pain 2. Activity - as tolerated. PT/OT, back brace when ambulating. If patient develops a headache, have him lay flat 3. AM labs pending - hgb stable, k+ WNL yesterday, WBC elevated yesterday 4. Hospitalist consult for worsening confusion, work up negative. Neuro has been consulted 5. Discharge pending - SNF once medically stable Electronically signed by ___ Christian Rae PA-C 03/05/25 06:31 EDT Normal [facility] SPEPon 03-05-2025 Protein [Mass/Vol] 5.5 g/dL Low 6.5-8.1 [facility] Comment on above: Performed By: #### C BC #### [facility] [address] [place] [address] XR Chest 1 Viewon 03-05-2025 XR Chest 1 View EXAM: XR Chest 1 Vie w HISTORY: Shortness of breath (SOB), COMPARISON: 03/02/2025 TECHNIQUE: Portable upright view FINDINGS: There is no pulmonary vascular congestion. There is mild ectasia of the thoracic aorta. There is no cardiac enlargement. There is no nodule, confluent infiltrate, or mass. There is no pleural effusion. There is no pneumothorax. There is spondylitic change thoracic spine and degenerative changes in the acromioclavicular joints. IMPRESSION: No acute findings. Final Dictated by: Kyra Godinez MD Dictated DT/TM: 03/05/2025 1:36 pm Signed by: Kyra Godinez MD Signed (Electronic Signature): 03/05/2025 1:41 pm (If Report Is Signed, Electronically Signed in Other Vendor System) Normal [facility] .eGFRon 03-04-2025 GFR/1.73 sq M.predicted MDRD (S/P/Bld) [Vol rate/Area] mL/min/{1.73_m2} Normal >=60 [facility] Comment on above: Result Comment: [facility] Laboratories have implemented the eGFR calculation approach that does not have a coefficient for race and that conforms to the NKF-ASN Task Force Recommendations. Stages of Chronic Kidney Disease GFR Stage 3a Mild to moderate loss of kidney function 59 to 45 Stage 3b Moderate to severe loss of kidney function 44 to 33 Stage 4 Severe loss of kidney function 29 to 15 Stage 5 Kidney failure Less than 15 GFR calculated using the CKD-Epi Creatinine Equation (2020): eGFR = 142 X min(SCr/?, 1)? X max(SCr /?, 1)-1.200 X 0.9938Age X 1.012 [if female] Abbreviations/Units: eGFR (estimated glomerular filtration rate) = mL/min/1.73 m2 SCr (standardized serum creatinine) = mg/dL ? = 0.7 (females) or 0.9 (males) ? = -0.241 (females) or -0.302 (males) min = indicates the minimum of SCr/? or 1 max = indicates the maximum of SCr/? or 1 Age = years Performed By: #### E GFR ####[place] [address] Basic Metabolic Profileon Anion gap [Moles/Vol] 7 mmol/L Normal 4-12 [facility] Comment on above: Performed By: #### T SH #### [address] [address] Calcium [Mass/Vol] 9.0 mg/dL Normal 8.5-10.3 [facility] Comment on above: Performed By: #### T SH #### [address] [address] Chloride [Moles/Vol] 100 mmol/L Normal 98-110 [facility] Comment on above: Performed By: #### T SH #### [address] [address] CO2 [Moles/Vol] 25 mmol/L Normal 22-32 [facility] Comment on above: Performed By: #### T SH #### [address] [address] Creatinine [Mass/Vol] 0.90 mg/dL Normal 0.61-1.24 [facility] Comment on above: Performed By: #### T SH #### [address] [place] [address] Glucose [Mass/Vol] 124 mg/dL High 70-99 [facility] Comment on above: Performed By: #### T SH #### [address] [address] Potassium [Moles/Vol] 4.2 mmol/L Normal 3.4-4.8 [facility] Comment on above: Performed By: #### T SH #### [address] [place] [address] Sodium [Moles/Vol] 132 mmol/L Low 133-142 [facility] Comment on above: Performed By: #### T SH #### [address] [place] [address] Urea nitrogen [Mass/Vol] 23 mg/dL Normal 8-26 [facility] Comment on above: Performed By: #### T SH #### [address] [address] Urea nitrogen/Creatinine [Mass ratio] 25.6 mg/mg High 10.0-20.0 [facility] Comment on above: Performed By: #### T SH #### [address] [address] CBC w/ Diffon 03-04-2025 Erythrocyte distribution width (RBC) [Ratio] 13.1 % Normal 11.6-14.8 [facility] Comment on above: Performed By: #### C BC #### [address] [address] Hematocrit (Bld) [Volume fraction] 34.8 % Low 41.0-53.0 [facility] Comment on above: Performed By: #### C BC #### [address] [address] Hemoglobin (Bld) [Mass/Vol] 11.8 g/dL Low 13.5-17.5 [facility] Comment on above: Performed By: #### C BC #### [address] [address] MCH (RBC) [Entitic mass] 31.6 pg Normal 27.0-35.0 [facility] Comment on above: Performed By: #### C BC #### [address] [address] MCHC 33.8 % Normal 31.0-37.0 [facility] Comment on above: Performed By: #### C BC #### [address] [address] MCV (RBC) [Entitic vol] 93.2 fL Normal 80.0-100.0 [facility] Comment on above: Performed By: #### C BC #### [address] [address] Platelet 273 x10*3/mcL Normal 150-450 [facility] Comment on above: Performed By: #### C BC #### [address] [address] Platelet mean volume (Bld) [Entitic vol] 8.2 fL Normal 6.7-10.6 [facility] Comment on above: Performed By: #### C BC #### [facility] [address] [place] [address] RBC 3.73 x10*6/mcL Low 4.30-5.80 [facility] Comment on above: Performed By: #### C BC #### [facility] [address] [place] [address] WBC 16.3 x10*3/mcL High 4.5-11.0 [facility] Comment on above: Performed By: #### C BC #### [facility] [address] [place] [address] Consultation Note - Generico n 03-04-2025 Consultation Note - Generic Assessment/Plan Hospital Course: Mr. Roland is a 79-year-old male with a PMHx of HTN, HLD, chronic gout, lumbar stenosis with neurogenic claudication, chronic peripheral neuropathy, and overactive bladder. Admitted for under orthopedic surgery for persistent low back pain and bilateral foot drop. Underwent L2-5 decompression and fusion with durotomy 02/24/25. Hospital course has been overall uncomplicated, awaiting SNF placement. Notable increased confusion, intermittent disorientation, and visual/auditory hallucinations. Hospitalist has been consulted for altered mental status. ASSESSMENT: Acute encephalopathy, ? hosp delirium vs seizure vs ETOH withdrawal vs drug-effect? Hallucinations, likely due to delirium S/P L2-5 decompression and fusion with durotomy on 02/24/25 ETOH abuse, reported per patient, amount unknown Hypertension, currently normotensive Hyperlipidemia, noted Chronic peripheral neuropathy, noted Overactive bladder, noted Hypokalemia, resolved PLAN: Blood cultures are NGTD (24 hours) CT brain, MRI of brain and MRA of head and neck, and UA ALL unremarkable. -- Patient safe for Med-Surg floors. Monitor vitals Provide oxygen per nasal cannula to maintain SpO2 above 90% or for comfort Fall/delirium precautions and neurochecks, in light of patient's encephalopathic state Regular diet Daily weight and strict I/O IV hydration necessary at this time Continuing CIWA protocol with peripherals, as ordered (Continuing thiamine and folic acid) Pain/nausea/fever controll medications on board Continuing Seroquel 25 mg nightly Medications reviewed as appropriate once restarted Follow-up daily labs EEG ordered and pending PT/OT on board to evaluate when appropriate nutrition services worker on board for discharge planning when appropriate Orthopedic surgery is primary (unclear), postsurgical management per primary team Neurology consulted, Dr. Mcclain to evaluate and give further recommendations. He is greatly appreciated DVT PPx: SCDs and heparin SQ Spoken to the patient's , answered her questions. This was on 03/03 and . Thank you for this consultation, we will continue to follow patient throughout hospitalization. Please call with any questions or concerns. Code Status: Full Resuscitation Plan - Orders Consult to Neurology, 03/04/25 11:57:00 EDT, Sarthak WALTERS, [facility] delirium, No No Activity Instruction, 03/04/25 6:12:00 EDT, Stop date 03/04/25 6:12:00 EDT Communication Order, 03/03/25 21:49:00 EDT, Hemovac drains to gravity, 03/03/25 21:49:00 EDT, 03/03/25 21:49:00 EDT Surgical Drains, 03/04/25 6:11:00 EDT, Hemovac, 03/04/25 6:11:00 EDT Degree of Malnutrition: Degree of Malnutrition MQ: Unable to determine Subjective Visited Mr. Roland earlier today examined at bedside. Patient is still encephalopathic and delirious. He is no longer AO x 3 today. He is able to engage in some way when engaged, he does follow some directions, underwent EEG, awaiting results. Patient is not complaining of anything in particular, except that he says he does not feel well. No adverse overnight events were reported to me by nursing. Vitals & Measurements T: 36.8 ?C (Oral) HR: 89 (Peripheral) RR: 16 BP: 157/79 SpO2: 97% HT: 193.04 cm HT: 192 cm WT: 110.8 kg BMI: 33.56 BMI: 33.2 Additional Vitals No qualifying data available. Objective Physical Exam General: AAOx3, patient w/fatigue and confusion that is subsiding. Eye: Normal conjunctiva. HENT: Normocephalic, moist oral mucosa, no scleral icterus. Neck: Supple, non-tender, no lymphadenopathy. Lungs: Clear to auscultation, no rales rhonchi crepitations or wheeze. Heart: RRR. S1-S2 is normal. No murmur rubs or gallops. Abdomen: Soft, round, non-tender, non-distended, normal bowel sounds. Extremities: No cyanosis, clubbing or edema. Skin: Lumbar surgical incision CDI, bilateral hemovac with mild sanguinous drainage. Minor erythema at drain site insertion but no overt signs of infection. Neurologic: Does not have any focal deficits. Follow commands, with mild confusion. Psychiatric: Calm and cooperative. Lab Results Labs (Last four charted values) WBC H 16.3 (MAR 04) 9.9 (MAR 03) 8.5 (MAR 02) 9.3 (MAR 01) Hgb L 11.8 (MAR 04) L 11.7 (MAR 03) L 11.5 (MAR 02) L 11.8 (MAR 01) Hct L 34.8 (MAR 04) L 34.3 (MAR 03) L 32.7 (MAR 02) L 34.8 (MAR 01) Plt 273 (MAR 04) 268 (MAR 03) 240 (MAR 02) 210 (MAR 01) Na L 132 (MAR 04) L 132 (MAR 03) L 132 (MAR 02) 135 (MAR 01) K 4.2 (MAR 04) L 3.3 (MAR 03) L 3.0 (MAR 02) 3.4 (MAR 01) CO2 25 (MAR 04) 27 (MAR 03) 27 (MAR 02) 28 (MAR 01) Cl 100 (MAR 04) 98 (MAR 03) 98 (MAR 02) 100 (MAR 01) Cr 0.90 (MAR 04) 0.74 (MAR 03) 0.65 (MAR 02) L 0.60 (MAR 01) BUN 23 (MAR 04) 18 (MAR 03) 13 (MAR 02) 11 (MAR 01) Mg 2.0 (MAR 02) Phos 2.6 (MAR 02) Microbiology - Current Encounter No qualifying data availab (more content not included)... Normal [facility] Diff Autoon 03-04-2025 Baso Absolute 0.1 x10*3/mcL Normal 0.0-0.2 [facility] Comment on above: Performed By: #### . Manual Diff #### [address] [address] Basophils/100 WBC (Bld) 0.4 % Normal 0.0-1.2 [facility] Comment on above: Performed By: #### . Manual Diff #### [address] [address] Eos Absolute 0.1 x10*3/mcL Normal 0.0-0.4 [facility] Comment on above: Performed By: #### . Manual Diff #### [address] [address] Eosinophils/100 WBC (Bld) 0.8 % Normal 0.0-6.1 [facility] Comment on above: Performed By: #### . Manual Diff #### [address] [address] Lymph Absolute 0.7 x10*3/mcL Low 1.0-4.8 [facility] Comment on above: Performed By: #### . Manual Diff #### [address] [address] Lymphocytes/100 WBC (Bld) 4.5 % Low 27.2-40.8 [facility] Comment on above: Performed By: #### . Manual Diff #### [address] [address] P[place]ps Absolute 1.4 x10*3/mcL High 0.3-1.1 [facility] Comment on above: Performed By: #### . Manual Diff #### [address] [address] Monocytes/100 WBC (Bld) 8.7 % Normal 4.7-13.9 [facility] Comment on above: Performed By: #### . Manual Diff #### [facility] [address] [place] [address] Neutro Absolute 13.9 x10*3/mcL High 1.8-7.7 [facility] Comment on above: Performed By: #### . Manual Diff #### [facility] [address] [place] [address] Neutro Auto 85.6 % High 47.2-70.8 [facility] Comment on above: Performed By: #### . Manual Diff #### [facility] [address] [place] [address] Orthopedic Progress Noteon 0 03-04-2025 Orthopedic Progress Note Subjective Patient c/o headache last night, compression removed from drains and laid flat. He denies headache this am C/o back being sore Objective Vitals & Measurements T: 37.4 ?C (Oral) HR: 85 (Peripheral) RR: 16 BP: 125/63 SpO2: 93% HT: 193.04 cm HT: 192 cm WT: 110.8 kg BMI: 33.56 BMI: 33.2 Additional Vitals No qualifying data available. Lab Results Microbiology - Current Encounter No qualifying data available. Diagnostic Results Diagnostic Radiology XR Chest 1 View 03/02/25 07:31:20 IMPRESSION: The cardiomediastinal silhouette is not enlarged. Low lung volumes. Osseous structures are acutely intact. No pneumothorax, consolidation or pleural effusion. Signed By: Gage Silva DO Computed Tomography CT Brain w/o Contrast 03/02/25 08:24:30 IMPRESSION: No acute intracranial abnormality. Brain atrophy unchanged. Signed By: Neftali Feliciano MD Magnetic Resonance Imaging MRI Brain and MRA Head w/o Contrast 03/02/25 11:56:54 IMPRESSION: 1. Motion degraded MRI of the brain without definite acute intracranial abnormality. 2. Mild generalized parenchymal volume loss. Nonspecific scattered white matter T2 hyperintensities, probably mild chronic microvascular ischemic change. 3. Motion degraded MRA of the head. Poor visualization of the A1 segment of the left anterior cerebral artery and portions of the nondominant right vertebral artery, probably due to diminutive caliber/hypoplasia or secondary to motion, however areas of stenosis are not excluded. Marked motion degradation of the A2 and A3 segments of the anterior cerebral arteries and distal middle cerebral arteries. Consider repeat evaluation as clinically warranted and feasible or correlation with CT angiography if continued clinical concern for arterial stenosis. Signed By: Juan Alberto Baeza MD Physical Exam Awake and alert, oriented x 3, difficult to understand at times Dressing - C/D/I Motor 5/5 except 0/5 right TA and 4/5 left TA Medications Inpatient allopurinol, 300 mg, Oral, Daily amLODIPine, 5 mg, Oral, BID Colace, 100 mg, Oral, BID Detrol LA, 4 mg, Oral, HS (at bedtime) Dulcolax Laxative, 10 mg, Oral, Daily, PRN Dulcolax Laxative, 10 mg= 1 supp, Rectal, Daily, PRN Fleet Enema 7 g-19 g rectal enema, 133 mL, Rectal, Daily, PRN folic acid, 1 mg, Oral, Daily heparin, 5000 units= 1 mL, Subcutaneous, d2er-Iheyvsre Times hydroCHLOROthiazide, 25 mg, Oral, Daily Klor-Con M20, 20 mEq, Oral, Daily Lipitor, 40 mg, Oral, HS (at bedtime) losartan, 25 mg, Oral, Daily MiraLax, 17 g= 1 EA, Oral, Daily Multiple Vitamins oral tablet, 1 tabs, Oral, Daily Myrbetriq, 50 mg, Oral, Daily SEROquel, 25 mg, Oral, HS (at bedtime) thiamine, 100 mg= 1 mL, IV Push, Daily Tylenol, 650 mg, Oral, [id number] Times, PRN Zofran, 4 mg= 2 mL, IV Push, q4hr, PRN Assessment/Plan POD#8 s/p L2-5 decompression and fusion with durotomy Plan: 1. Remove drains 2. Tylenol prn pain 3. Activity - as tolerated. PT/OT, back brace when ambulating. If patient develops a headache, have him lay flat 4. AM labs pending - BMP/CBC pending 5. Hospitalist consult for worsening confusion, work up negative 6. Discharge pending - SNF once set up Electronically signed by ___ Diglio PA-C, Christian Walkerne 03/04/25 06:14 EDT Normal [facility] .eGFRon 03-03-2025 GFR/1.73 sq M.predicted MDRD (S/P/Bld) [Vol rate/Area] mL/min/{1.73_m2} Normal >=60 [facility] Comment on above: Result Comment: [facility] Laboratories have implemented the eGFR calculation approach that does not have a coefficient for race and that conforms to the NKF-ASN Task Force Recommendations. Stages of Chronic Kidney Disease GFR Stage 3a Mild to moderate loss of kidney function 59 to 45 Stage 3b Moderate to severe loss of kidney function 44 to 33 Stage 4 Severe loss of kidney function 29 to 15 Stage 5 Kidney failure Less than 15 GFR calculated using the CKD-Epi Creatinine Equation (2020): eGFR = 142 X min(SCr/?, 1)? X max(SCr /?, 1)-1.200 X 0.9938Age X 1.012 [if female] Abbreviations/Units: eGFR (estimated glomerular filtration rate) = mL/min/1.73 m2 SCr (standardized serum creatinine) = mg/dL ? = 0.7 (females) or 0.9 (males) ? = -0.241 (females) or -0.302 (males) min = indicates the minimum of SCr/? or 1 max = indicates the maximum of SCr/? or 1 Age = years Performed By: #### . Manual Diff #### [facility] [address] [place] [address] Basic Metabolic Profileon Anion gap [Moles/Vol] 7 mmol/L Normal 4-12 [facility] Comment on above: Performed By: #### C BC #### [facility] [address] [place] [address] Calcium [Mass/Vol] 8.8 mg/dL Normal 8.5-10.3 [facility] Comment on above: Performed By: #### C BC #### [facility] [address] [place] [address] Chloride [Moles/Vol] 98 mmol/L Normal 98-110 [facility] Comment on above: Performed By: #### C BC #### [address] [address] CO2 [Moles/Vol] 27 mmol/L Normal 22-32 [facility] Comment on above: Performed By: #### C BC #### [address] [address] Creatinine [Mass/Vol] 0.74 mg/dL Normal 0.61-1.24 [facility] Comment on above: Performed By: #### C BC #### [address] [address] Glucose [Mass/Vol] 111 mg/dL High 70-99 [facility] Comment on above: Performed By: #### C BC #### [address] [address] Potassium [Moles/Vol] 3.3 mmol/L Low 3.4-4.8 [facility] Comment on above: Performed By: #### C BC #### [address] [address] Sodium [Moles/Vol] 132 mmol/L Low 133-142 [facility] Comment on above: Performed By: #### C BC #### [address] [address] Urea nitrogen [Mass/Vol] 18 mg/dL Normal 8-26 [facility] Comment on above: Performed By: #### C BC #### [address] [address] Urea nitrogen/Creatinine [Mass ratio] 24.3 mg/mg High 10.0-20.0 [facility] Comment on above: Performed By: #### C BC #### [address] [address] CBC w/ Diffon 03-03-2025 Erythrocyte distribution width (RBC) [Ratio] 13.2 % Normal 11.6-14.8 [facility] Comment on above: Performed By: #### C BC #### [address] [address] Hematocrit (Bld) [Volume fraction] 34.3 % Low 41.0-53.0 [facility] Comment on above: Performed By: #### C BC #### [address] [address] Hemoglobin (Bld) [Mass/Vol] 11.7 g/dL Low 13.5-17.5 [facility] Comment on above: Performed By: #### C BC #### [place] [id number] MCH (RBC) [Entitic mass] 31.8 pg Normal 27.0-35.0 [facility] Comment on above: Performed By: #### C BC #### [place] [id number] MCHC 34.2 % Normal 31.0-37.0 [facility] Comment on above: Performed By: #### C BC #### [place] [id number] MCV (RBC) [Entitic vol] 93.1 fL Normal 80.0-100.0 [facility] Comment on above: Performed By: #### C BC #### [address] [address] Platelet 268 x10*3/mcL Normal 150-450 [facility] Comment on above: Performed By: #### C BC #### [address] [address] Platelet mean volume (Bld) [Entitic vol] 8.2 fL Normal 6.7-10.6 [facility] Comment on above: Performed By: #### C BC #### [facility] [address] [place] [address] RBC 3.68 x10*6/mcL Low 4.30-5.80 [facility] Comment on above: Performed By: #### C BC #### [address] [address] WBC 9.9 x10*3/mcL Normal 4.5-11.0 [facility] Comment on above: Performed By: #### C #### [facility] [address] [place] [id number] Consultation Note - Generico n 03-03-2025 Consultation Note - Generic Assessment/Plan Assessment/Plan Mr. Roland is a 79-year-old male with a PMHx of HTN, HLD, chronic gout, lumbar stenosis with neurogenic claudication, chronic peripheral neuropathy, and overactive bladder. Admitted for under orthopedic surgery for persistent low back pain and bilateral foot drop. Underwent L2-5 decompression and fusion with durotomy 02/24/25. Hospital course has been overall uncomplicated, awaiting SNF placement. Notable increased confusion, intermittent disorientation, and visual/auditory hallucinations. Hospitalist has been consulted for altered mental status. Acute encephalopathy, ? hosp delirium vs ETOH withdrawal vs drug vs seizure ? Improving Hallucinations, likely due to delirium Hypokalemia (3.0), replacing and monitoring S/P L2-5 decompression and fusion with durotomy on 02/24/25 ETOH abuse, reported per patient, amount unknown Hypertension, currently normotensive Hyperlipidemia, noted Chronic peripheral neuropathy, noted Overactive bladder, noted Patient safe for Med-Surg floors. Monitor vitals Provide oxygen per nasal cannula to maintain SpO2 above 90% or for comfort Fall/delirium precautions and neurochecks, in light of patient's encephalopathic state Regular diet Daily weight and strict I/O IV hydration necessary at this time Continuing CIWA protocol with peripherals, as ordered (Continuing thiamine and folic acid) Pain/nausea/fever controll medications on board Continuing Seroquel 25 mg nightly Medications reviewed as appropriate once restarted Follow-up daily labs Blood cultures are NGTD (24 hours) Noted CT brain, MRI of brain and MRA of head and neck, and UA ALL unremarkable EEG ordered and pending PT/OT on board to evaluate when appropriate nutrition services worker on board for discharge planning when appropriate Orthopedic surgery is primary (unclear), postsurgical management per primary team DVT PPx: SCDs and heparin SQ Spoken to the patient's , answered her questions. This was on 03/03/2025. Thank you for this consultation, we will continue to follow patient throughout hospitalization. Please call with any questions or concerns. Code Status: Full Resuscitation Plan - Orders heparin, 5,000 units, Subcutaneous, Injection, [id number] Times, First Dose: 03/02/25 14:00:00 EDT, Dispense From Location: [address], 03/02/25 13:08:00 EDT potassium chloride, 40 mEq, Oral, Tab-ER, Once, First Dose: 03/03/25 16:00:00 EDT, Stop Date: 03/03/25 16:00:00 EDT, Dispense From Location: [address], 03/03/25 9:10:00 EDT Adjustment Inpatient, 02/27/25 8:00:00 EDT, Med-Surg, Medicine-General, 03/02/25 15:39:00 EDT, 03/02/25 15:39:00 EDT, pm_pso_link_preprocessi ng PSO Change, 03/02/25 15:40:53 EDT Consult to Call Center Associate, 03/02/25 13:07:00 EDT, Discharge planning, 03/02/25 13:07:00 EDT Dietary Supplements, 03/02/25 14:08:00 EDT, Magic Cup - Butter Pecan, BID Immunizations Quality Measures, 03/02/25 15:40:53 EDT, Stop date 03/02/25 15:40:53 EDT Degree of Malnutrition: Degree of Malnutrition MQ: Unable to determine Subjective Visited Mr. Roland this morning and examined at bedside. Patient is less encephalopathic, however remains confused overall. He is going to EEG. Not complaining of anything at this time that is physical. No adverse overnight events reported to me by nursing. Vitals & Measurements T: 36.8 ?C (Oral) HR: 85 (Peripheral) RR: 16 BP: 145/68 SpO2: 91% HT: 193.04 cm HT: 192 cm WT: 111.2 kg BMI: 33.56 BMI: 33.2 Additional Vitals No qualifying data available. Objective Physical Exam General: AAOx3, patient w/fatigue and confusion that is subsiding. Eye: Normal conjunctiva. HENT: Normocephalic, moist oral mucosa, no scleral icterus. Neck: Supple, non-tender, no lymphadenopathy. Lungs: Clear to auscultation, no rales rhonchi crepitations or wheeze. Heart: RRR. S1-S2 is normal. No murmur rubs or gallops. Abdomen: Soft, round, non-tender, non-distended, normal bowel sounds. Extremities: No cyanosis, clubbing or edema. Skin: Lumbar surgical incision CDI, bilateral hemovac with mild sanguinous drainage. Minor erythema at drain site insertion but no overt signs of infection. Neurologic: Does not have any focal deficits. Follow commands, with mild confusion. Psychiatric: Calm and cooperative. Lab Results Labs (Last four charted values) WBC 9.9 (MAR 03) 8.5 (MAR 02) 9.3 (MAR 01) 8.2 (FEB 28) Hgb L 11.7 (MAR 03) L 11.5 (MAR 02) L 11.8 (MAR 01) L 11.4 (FEB 28) Hct L 34.3 (MAR 03) L 32.7 (MAR 02) L 34.8 (MAR 01) L 32.5 (FEB 28) Plt 268 (MAR 03) 240 (MAR 02) 210 (MAR 01) 181 (FEB 28) Na L 132 (MAR 03) L 132 (MAR 02) 135 (MAR 01) 135 (FEB 28) K L 3.3 (MAR 03) L 3.0 (MAR 02) 3.4 (MAR 01) L 3.0 (MAR 01) CO2 27 (MAR 03) 27 (MAR 02) 28 (MAR 01) 28 (FEB 28) Cl 98 (MAR 03) 98 (MAR 02) 100 (MAR 01) 101 (FEB 28) Cr 0.74 (MAR 03) 0.65 (MAR 02) L 0.60 (MAR 01) 0.63 (FEB 28) BUN 18 (MAR 03) 13 (MAR 02) 11 (MAR 01) 12 (FEB 28) Mg 2.0 (MAR 02) Phos 2.6 (more content not included)... Normal [facility] Diff Autoon 03-03-2025 Baso Absolute 0.1 x10*3/mcL Normal 0.0-0.2 [facility] Comment on above: Performed By: #### . Manual Diff #### [facility] [address] [place] [address] Basophils/100 WBC (Bld) 0.8 % Normal 0.0-1.2 [facility] Comment on above: Performed By: #### . Manual Diff #### [address] [address] Eos Absolute 0.3 x10*3/mcL Normal 0.0-0.4 [facility] Comment on above: Performed By: #### . Manual Diff #### [address] [address] Eosinophils/100 WBC (Bld) 2.9 % Normal 0.0-6.1 [facility] Comment on above: Performed By: #### . Manual Diff #### [address] [address] Lymph Absolute 1.0 x10*3/mcL Normal 1.0-4.8 [facility] Comment on above: Performed By: #### . Manual Diff #### [address] [address] Lymphocytes/100 WBC (Bld) 10.1 % Low 27.2-40.8 [facility] Comment on above: Performed By: #### . Manual Diff #### [address] [address] Phelps Absolute 1.1 x10*3/mcL Normal 0.3-1.1 [facility] Comment on above: Performed By: #### . Manual Diff #### [address] [address] Monocytes/100 WBC (Bld) 11.1 % Normal 4.7-13.9 [facility] Comment on above: Performed By: #### . Manual Diff #### [address] [address] Neutro Absolute 7.5 x10*3/mcL Normal 1.8-7.7 [facility] Comment on above: Performed By: #### . Manual Diff #### [address] [address] Neutro Auto 75.1 % High 47.2-70.8 [facility] Comment on above: Performed By: #### . Manual Diff #### [address] [place] [address] Orthopedic Progress Noteon 0 03-03-2025 Orthopedic Progress Note Subjective patient drowsy this am, falls back asleep during questioning and answers I dont know to most questions, but he is oriented to person, place, time, situation Reports some back pain, denies leg pain, chronic neuropathy Denies headaches Objective Vitals & Measurements T: 36.8 ?C (Oral) HR: 75 (Peripheral) RR: 16 BP: 158/81 SpO2: 94% HT: 193.04 cm HT: 192 cm WT: 111.2 kg BMI: 33.56 BMI: 33.2 Additional Vitals No qualifying data available. Lab Results Microbiology - Current Encounter No qualifying data available. Diagnostic Results Diagnostic Radiology XR Chest 1 View 03/02/25 07:31:20 IMPRESSION: The cardiomediastinal silhouette is not enlarged. Low lung volumes. Osseous structures are acutely intact. No pneumothorax, consolidation or pleural effusion. Signed By: Gage Silva DO Computed Tomography CT Brain w/o Contrast 03/02/25 08:24:30 IMPRESSION: No acute intracranial abnormality. Brain atrophy unchanged. Signed By: Neftali Feliciano MD Magnetic Resonance Imaging MRI Brain and MRA Head w/o Contrast 03/02/25 11:56:54 IMPRESSION: 1. Motion degraded MRI of the brain without definite acute intracranial abnormality. 2. Mild generalized parenchymal volume loss. Nonspecific scattered white matter T2 hyperintensities, probably mild chronic microvascular ischemic change. 3. Motion degraded MRA of the head. Poor visualization of the A1 segment of the left anterior cerebral artery and portions of the nondominant right vertebral artery, probably due to diminutive caliber/hypoplasia or secondary to motion, however areas of stenosis are not excluded. Marked motion degradation of the A2 and A3 segments of the anterior cerebral arteries and distal middle cerebral arteries. Consider repeat evaluation as clinically warranted and feasible or correlation with CT angiography if continued clinical concern for arterial stenosis. Signed By: Juan Alberto Baeza MD Physical Exam Dressing - C/D/I Motor 5/5 except 0/5 right TA and 4/5 left TA, Alert and oriented x3 Medications Inpatient allopurinol, 300 mg, Oral, Daily amLODIPine, 5 mg, Oral, BID Colace, 100 mg, Oral, BID Detrol LA, 4 mg, Oral, HS (at bedtime) Dulcolax Laxative, 10 mg, Oral, Daily, PRN Dulcolax Laxative, 10 mg= 1 supp, Rectal, Daily, PRN Fleet Enema 7 g-19 g rectal enema, 133 mL, Rectal, Daily, PRN folic acid, 1 mg, Oral, Daily heparin, 5000 units= 1 mL, Subcutaneous, q5xz-Hessubdi Times hydroCHLOROthiazide, 25 mg, Oral, Daily Klor-Con M20, 20 mEq, Oral, Daily Lipitor, 40 mg, Oral, HS (at bedtime) losartan, 25 mg, Oral, Daily MiraLax, 17 g= 1 EA, Oral, Daily Multiple Vitamins oral tablet, 1 tabs, Oral, Daily Myrbetriq, 50 mg, Oral, Daily SEROquel, 25 mg, Oral, HS (at bedtime) thiamine, 100 mg= 1 mL, IV Push, Daily Tylenol, 650 mg, Oral, f7mk-Rlankaxy Times, PRN Zofran, 4 mg= 2 mL, IV Push, q4hr, PRN Assessment/Plan POD#7 s/p L2-5 decompression and fusion with durotomy Plan: 1. Continue drains 2. Tylenol prn pain 3. Activity - as tolerated. PT/OT, back brace when ambulating. If patient develops a headache, have him lay flat 4. AM labs pending 5. Hospitalist consult for worsening confusion, work up negative 6. Discharge pending - SNF once set up Electronically signed by ___ Christian Rae PA-C 03/03/25 06:58 EDT Normal [facility] .UA Microscp Aon 03-02-2025 UA Hyline Cast Qual 0-2 Normal Negative [facility] Comment on above: Performed By: #### C BC #### [facility] [address] [place] [address] UA Mucus Present Normal Absent [facility] Comment on above: Performed By: #### C BC #### [facility] [address] [place] [address] UA RBC Quant 1 /HPF Normal 0-5 [facility] Comment on above: Performed By: #### C BC #### [facility] [address] [place] [address] UA WBC Quant 0 /HPF Normal 0-5 [facility] Comment on above: Performed By: #### C BC #### [facility] [address] [place] [address] .eGFRon 03-02-2025 GFR/1.73 sq M.predicted MDRD (S/P/Bld) [Vol rate/Area] mL/min/{1.73_m2} Normal >=60 [facility] Comment on above: Result Comment: [facility] have implemented the eGFR calculation approach that does not have a coefficient for race and that conforms to the NKF-ASN Task Force Recommendations. Stages of Chronic Kidney Disease GFR Stage 3a Mild to moderate loss of kidney function 59 to 45 Stage 3b Moderate to severe loss of kidney function 44 to 33 Stage 4 Severe loss of kidney function 29 to 15 Stage 5 Kidney failure Less than 15 GFR calculated using the CKD-Epi Creatinine Equation (2020): eGFR = 142 X min(SCr/?, 1)? X max(SCr /?, 1)-1.200 X 0.9938Age X 1.012 [if female] Abbreviations/Units: eGFR (estimated glomerular filtration rate) = mL/min/1.73 m2 SCr (standardized serum creatinine) = mg/dL ? = 0.7 (females) or 0.9 (males) ? = -0.241 (females) or -0.302 (males) min = indicates the minimum of SCr/? or 1 max = indicates the maximum of SCr/? or 1 Age = years Performed By: #### E GFR ####[facility] [place] [address] Ammoniaon 03-02-2025 Ammonia (P) [Moles/Vol] 18 umol/L Normal 9-35 [facility] Comment on above: Performed By: #### T SH #### [facility] [address] [place] [address] B12/Folate Lvlon 03-02-2025 Cobalamin (Vitamin B12) [Mass/Vol] 1036 pg/mL High 180-914 [facility] Comment on above: Performed By: #### . Manual Diff #### [address] [address] Folate Lvl 10.2 ng/mL Normal >=5.9 [facility] Comment on above: Result Comment: [facility] Technical Consultation has determined that deficient Folate concentrations are considered to be less than 4 ng/mL. Performed By: #### . Manual Diff #### [address] [address] Basic Metabolic Profileon Anion gap [Moles/Vol] 7 mmol/L Normal 4-12 [facility] Comment on above: Performed By: #### C [id number] #### [address] [address] Calcium [Mass/Vol] 8.8 mg/dL Normal 8.5-10.3 [facility] Comment on above: Performed By: #### C [id number] #### [address] [address] Chloride [Moles/Vol] 98 mmol/L Normal 98-110 [facility] Comment on above: Performed By: #### C [id number] #### [address] [address] CO2 [Moles/Vol] 27 mmol/L Normal 22-32 [facility] Comment on above: Performed By: #### C [id number] #### [address] [address] Creatinine [Mass/Vol] 0.65 mg/dL Normal 0.61-1.24 [facility] Comment on above: Performed By: #### C [id number] #### [address] [address] Glucose [Mass/Vol] 113 mg/dL High 70-99 [facility] Comment on above: Performed By: #### C [id number] #### [address] [address] Potassium [Moles/Vol] 3.0 mmol/L Low 3.4-4.8 [facility] Comment on above: Performed By: #### C [id number] #### [address] [address] Sodium [Moles/Vol] 132 mmol/L Low 133-142 [facility] Comment on above: Performed By: #### C [id number] #### [address] [address] Urea nitrogen [Mass/Vol] 13 mg/dL Normal 8-26 [facility] Comment on above: Performed By: #### C [id number] #### [address] [address] Urea nitrogen/Creatinine [Mass ratio] 20.0 mg/mg Normal 10.0-20.0 [facility] Comment on above: Performed By: #### C [id number] #### [address] [address] CBC w/ Diffon 03-02-2025 Erythrocyte distribution width (RBC) [Ratio] 13.4 % Normal 11.6-14.8 [facility] Comment on above: Performed By: #### T SH #### [address] [address] Hematocrit (Bld) [Volume fraction] 32.7 % Low 41.0-53.0 [facility] Comment on above: Performed By: #### T SH #### [address] [address] Hemoglobin (Bld) [Mass/Vol] 11.5 g/dL Low 13.5-17.5 [facility] Comment on above: Performed By: #### T SH #### [address] [address] MCH (RBC) [Entitic mass] 32.6 pg Normal 27.0-35.0 [facility] Comment on above: Performed By: #### T SH #### [address] [address] MCHC 35.2 % Normal 31.0-37.0 [facility] Comment on above: Performed By: #### T SH #### [address] [address] MCV (RBC) [Entitic vol] 92.5 fL Normal 80.0-100.0 [facility] Comment on above: Performed By: #### T SH #### [address] [address] Platelet 240 x10*3/mcL Normal 150-450 [facility] Comment on above: Performed By: #### T SH #### [address] [address] Platelet mean volume (Bld) [Entitic vol] 8.4 fL Normal 6.7-10.6 [facility] Comment on above: Performed By: #### T SH #### [address] [address] RBC 3.54 x10*6/mcL Low 4.30-5.80 [facility] Comment on above: Performed By: #### T SH #### [address] [address] WBC 8.5 x10*3/mcL Normal 4.5-11.0 [facility] Comment on above: Performed By: #### T SH #### [address] [address] CRPon 03-02-2025 CRP 2.83 mg/dL High 0.00-0.75 [facility] Comment on above: Result Comment: CRP measurement is useful for assessment of non-specific INFLAMMATORY RESPONSE to infection or injury AND is a sensitive MARKER of ACUTE INFLAMMATION including CARDIAC RISK ASSESSMENT. CARDIAC patients with elevated CRP are POTENTIALLY at a HIGHER RISK OF FUTURE CARDIAC EVENTS. Performed By: #### C [id number] #### [address] [address] [address] Brain w/o Contraston 02-04 CT Brain w/o Contrast NONCONTRAST HEAD CT COMPARISON: Head CT 05/02/2024. CLINICAL HISTORY: Hallucinations. TECHNIQUE: Routine noncontrast images of the brain obtained. CT examination of the head without IV contrast. Dose reduction techniques were achieved by using: automated exposure control and/or adjustment of mA and /or kV according to patient size and/or use of iterative reconstruction technique. FINDINGS: Paranasal sinuses and mastoid air cells are clear. Intraorbital contents are unremarkable. No acute bony abnormality. Intracranially, there is no evidence of hemorrhage, mass effect, or midline shift. Stable brain atrophy. Carotid calcifications noted. . IMPRESSION: No acute intracranial abnormality. Brain atrophy unchanged. Radiation Dose Estimate: CTDI(mGy):0.789438 / / / kVp:120.722465 / mAs:0.837658 / / / DLP(mGy-cm):4.386500Ybj y Part: Head CTDI(mGy):47.468107 / / / kVp:120.516050 / mAs:194.714617 / / / DLP(mGy-cm):902.391772H mellisa Part: Head Final Dictated by: Neftali Feliciano MD Dictated DT/TM: 03.02.2025 8:23 am Signed by: Neftali Feliciano MD Signed (Electronic Signature): 03.02.2025 8:24 am (If Report Is Signed, Electronically Signed in Other Vendor System) Normal [facility] Consultation Note - Generico n 03-02-2025 Consultation Note - Generic Assessment/Plan Assessment/Plan Mr. Roland is a 79-year-old male with a PMHx of HTN, HLD, chronic gout, lumbar stenosis with neurogenic claudication, chronic peripheral neuropathy, and overactive bladder. Admitted for under orthopedic surgery for persistent low back pain and bilateral foot drop. Underwent L2-5 decompression and fusion with durotomy 02/24/25. Hospital course has been overall uncomplicated, awaiting SNF placement. Notable increased confusion, intermittent disorientation, and visual/auditory hallucinations. Hospitalist has been consulted for altered mental status. Acute encephalopathy, ? hosp delirium vs ETOH withdrawal vs drug vs seizure ? Improved Hallucinations, likely due to delirium Hypokalemia (3.0), replacing and monitoring S/P L2-5 decompression and fusion with durotomy on 02/24/25 ETOH abuse, reported per patient, amount unknown Hypertension, currently normotensive Hyperlipidemia, noted Chronic peripheral neuropathy, noted Overactive bladder, noted Patient safe for Med-Surg floors. Monitor vitals Provide oxygen per nasal cannula to maintain SpO2 above 90% or for comfort Fall/delirium precautions and neurochecks, in light of patient's encephalopathic state Regular diet Daily weight and strict I/O IV hydration necessary at this time Continuing CIWA protocol with peripherals, as ordered (Continuing thiamine and folic acid) Pain/nausea/fever controll medications on board Continuing Seroquel 25 mg nightly Medications reviewed as appropriate once restarted Follow-up daily labs Follow-up blood culture results Noted CT brain, MRI of brain and MRA of head and neck, and UA ALL unremarkable PT/OT on board to evaluate when appropriate nutrition services worker on board for discharge planning when appropriate Orthopedic surgery is primary (unclear), postsurgical management per primary team DVT PPx: SCDs and heparin SQ Thank you for this consultation, we will continue to follow patient throughout hospitalization. Please call with any questions or concerns. Code Status: Full Resuscitation Plan - Orders folic acid, 1 mg, Oral, Tab, Daily, First Dose: 03/02/25 9:00:00 EDT, Dispense From Location: [address], 03/02/25 2:26:00 EDT heparin, 5,000 units, Subcutaneous, Injection, [id number]-Tovujaya Times, First Dose: 03/02/25 14:00:00 EDT, 03/02/25 13:08:00 EDT multivitamin, 1 tabs, Oral, Tab, Daily, First Dose: 03/02/25 9:00:00 EDT, Dispense From Location: [address], 03/02/25 2:26:00 EDT potassium chloride, 40 mEq, Oral, Tab-ER, Once, First Dose: 03/02/25 12:00:00 EDT, Stop Date: 03/02/25 12:00:00 EDT, Dispense From Location: [address], 03/02/25 12:00:00 EDT QUEtiapine, 25 mg, Oral, Tab, HS (at bedtime), First Dose: 03/02/25 21:00:00 EDT, Dispense From Location: [id number], 03/02/25 2:26:00 EDT thiamine, 100 mg, IV Push, Injection, Daily for 5 days, First Dose: 03/02/25 9:00:00 EDT, Stop Date: 03/07/25 8:59:00 EDT, Dispense From Location: [place], 03/02/25 7:16:00 EDT EKG, 03/02/25 8:00:00 EDT, Routine, Other (please specify), AMS, 03/02/25 8:00:00 EDT Consult to Hospitalist, 03/02/25 0:10:00 EDT, Becky WALTERS, Denny Marie, Medical management, Yes Consult to Call Center Associate, 03/02/25 13:07:00 EDT, Discharge planning, 03/02/25 13:07:00 EDT Basic Metabolic Profile, Blood, Timed Study collect, 03/02/25 7:13:00 EDT, Daily for 3 days, Stop date 03/06/25 5:59:00 EDT, Lab Collect Complete Blood Count w/ Differential, Blood, Timed Study collect, 03/02/25 7:12:00 EDT, Daily for 3 days, Stop date 03/06/25 5:59:00 EDT, Lab Collect Culture Blood, Peripheral Blood, Stat collect, 03/02/25 8:06:00 EDT, Stop date 03/02/25 8:07:00 EDT Culture Blood, Peripheral Blood, Routine collect, 03/02/25 9:47:00 EDT, Stop date 03/02/25 11:00:00 EDT Clinical [place] Withdrawl Assessment, 03/02/25 2:26:00 EDT, q6hr, Q6h and upon/one hours after benzodiazepine administration Communication Order, 03/02/25 2:29:00 EDT, Delirium precautions, 03/02/25 2:29:00 EDT, 03/02/25 2:29:00 EDT Fall Risk Precautions, 03/02/25 2:29:00 EDT, Constant Order Neurological Checks, 03/02/25 2:29:00 EDT, q12hr for 3 days, Stop date 03/05/25 2:59:00 EDT NIH Stroke Scale, 03/02/25 8:31:00 EDT, q4hr Notify Provider, 03/02/25 2:26:00 EDT, If patient exhibits symptoms of nystagmus, somnolence, drowsiness, or ataxia, hold benzodiazepine and call Provider., 03/02/25 2:26:00 EDT, 03/02/25 2:26:00 EDT Notify Provider, 03/02/25 2:26:00 EDT, If CIWA score is 25 or higher, call Provider for appropriate orders for patient transfer to ICU for further monitoring, 03/02/25 2:26:00 EDT, 03/02/25 2:26:00 EDT Straight Catheter, 03/02/25 1:07:00 EDT, Once, Stop date 03/02/25 1:07:00 EDT Degree of Malnutrition: No qualifying data available. Subjective Visited Mr. Roland earlier today and examined at bedside. Nurse reported that he was still quite encephalopathic, however after he came back from Vitals & Measurements T: 36.1 ?C (Oral) HR: 87 (Periphera (more content not included)... Normal [facility] Consultation Note - Generic Chief Complaint PT REPORTS LOW BACK PAIN. PATITO POSTERIOR LUMBAR SPINE FUSION & DECOMPRESSION W/ SPINAL CORD STIMULATOR REMOVAL. Reason for Consultation: Altered mental status and hallucinations Consulting Provider: Orthopedic surgery Dr. Anita Mcdonald MD Date of Consult: 03/02/2025 Assessment/Plan Mr. Roland is a 79-year-old male with a PMHx of HTN, HLD, chronic gout, lumbar stenosis with neurogenic claudication, chronic peripheral neuropathy, and overactive bladder. Admitted for under orthopedic surgery for persistent low back pain and bilateral foot drop. Underwent L2-5 decompression and fusion with durotomy 02/24/25. Hospital course has been overall uncomplicated, awaiting SNF placement. Notable increased confusion, intermittent disorientation, and visual/auditory hallucinations. Hospitalist has been consulted for altered mental status. Acute encephalopathy, unclear etiology --> Multifactorial: hospital related delirium, ? ETOH withdrawal, insomnia, narcotics (last dose 02/25/25). No focal neurological deficits. Hallucinations Acute hypokalemia HTN HLD Chronic peripheral neuropathy OAB ETOH abuse, reported per patient, amount unknown S/p L2-5 decompression and fusion with durotomy on 02/24/25 Obtain CBC, BMP, mag, phos, vitamin B12, folate, ammonia, CRP, troponin level in AM UA/UCx and CXR to look for infectious source EKG CT head w/o in AM Replete electrolytes as needed [facility] protocol for scoring, if ETOH abuse confirmed w/ start pharmacologics for treatment Delirium precautions Encourage po intake, labs do not suggest dehydration Meds reviewed, no offending agents Neuro checks Q12 Start Seroquel 25 mg HS Surgical management per primary team Thank you for this consultation, we will continue to follow patient throughout hospitalization. Please call with any questions or concerns. Code Status: Full Resuscitation History of Present Illness Mr. Roland is a 79-year-old male with a PMHx of HTN, HLD, chronic gout, lumbar stenosis with neurogenic claudication, chronic peripheral neuropathy, and overactive bladder. Admitted under orthopedic surgery for persistent low back pain and bilateral foot drop. Prior L4-S1 PSF done with Dr. Ang Rocha. He then had a HW removal and L3-4 decompression in [address] [place] [address] Larry. He then had a SCS and battery done Aug 2024 that is no longer functioning. He is now s/p L2-5 decompression and fusion with durotomy 02/24/25. POD#5. Hospital course has been overall uncomplicated; awaiting SNF placement. Noted to have increased confusion and hallucinations. Hospitalist has been consulted for altered mental status. RN reports patient has had increased confusion, restlessness, insomnia, and visual and auditory hallucinations x 4-5 days that has progressively worsened. He has been intermittently disoriented to place and situation. Requiring frequent re-orientation and direction. Primary team has concluded AMS/hallucination are due to narcotics, MAR reviewed last morphine and dilaudid on 02/24 & 02/25/25. Patient attempting to get out of bed multiple times. Patient reports confusion with auditory and visual hallucinations. When asked multiple times, he does not disclose what he is seeing or hearing. He reports he has had hallucinations for years . Upon my evaluation he is oriented x 4 (person, place, year, situation). Evidently confused. Admit to drinking daily shot every 2 hours. Reports minor occasional non-productive cough otherwise endorses no complaints at this time. Afebrile, HR 76, BP 121/71, 98% RA. Labs show WBC 9.3, Hgb 11.8, platelet 210, NA 135, K3.0, CR 0.6/BUN 11, calcium 8.9. Review of Systems 10 point review of systems reviewed Objective Vitals & Measurements T: 36.6 ?C (Oral) TMIN: 36.5 ?C (Oral) TMAX: 37.2 ?C (Axillary) HR: 74 (Peripheral) RR: 16 BP: 124/74 SpO2: 96% Physical Exam General: Alert oriented x3, patient appears in no acute cardiorespiratory distress. Elderly. Not acutely ill appearing. Confused. Eye: normal conjunctiva HENT: Normocephalic, moist oral mucosa, no scleral icterus. Neck: Supple, non-tender, no lymphadenopathy. Lungs: Clear to auscultation, no rales rhonchi crepitations or wheeze. Heart: S1-S2 is normal. No murmur rubs or gallops. Abdomen: Soft, round, non-tender, non-distended, normal bowel sounds, no masses Extremities: No cyanosis clubbing or edema Skin: lumbar surgical incision CDI, bilateral hemovac with mild sanguinous drainage. Minor erythema at drain site insertion but no overt signs of infection. Neurologic: Awake, alert, and oriented X3, patient does not have any focal deficits. Speech clear. No tics or tremors. Moves extremities equally. Tongue midline. Face symmetrical. Follow commands. Answers most questions appropriately. Appears some what confused. Psychiatric: Calm and cooperative Additional Vitals No qualifying data available. Problem List/Past Medical History Ongoing Arthritis Back pain Foot (more content not included)... Normal [facility] Diff Autoon 03-02-2025 Baso Absolute 0.1 x10*3/mcL Normal 0.0-0.2 [facility] Comment on above: Performed By: #### C BC #### [facility] [address] [place] [address] Basophils/100 WBC (Bld) 0.9 % Normal 0.0-1.2 [facility] Comment on above: Performed By: #### C BC #### [facility] [address] [place] [address] Eos Absolute 0.3 x10*3/mcL Normal 0.0-0.4 [facility] Comment on above: Performed By: #### C BC #### [address] [address] Eosinophils/100 WBC (Bld) 3.5 % Normal 0.0-6.1 [facility] Comment on above: Performed By: #### C BC #### [address] [address] Lymph Absolute 1.1 x10*3/mcL Normal 1.0-4.8 [facility] Comment on above: Performed By: #### C BC #### [address] [address] Lymphocytes/100 WBC (Bld) 13.4 % Low 27.2-40.8 [facility] Comment on above: Performed By: #### C BC #### [address] [address] Phelps Absolute 1.0 x10*3/mcL Normal 0.3-1.1 [facility] Comment on above: Performed By: #### C BC #### [address] [address] Monocytes/100 WBC (Bld) 12.0 % Normal 4.7-13.9 [facility] Comment on above: Performed By: #### C BC #### [address] [address] Neutro Absolute 6.0 x10*3/mcL Normal 1.8-7.7 [facility] Comment on above: Performed By: #### C BC #### [address] [address] Neutro Auto 70.2 % Normal 47.2-70.8 [facility] Comment on above: Performed By: #### C BC #### [address] [address] Diff Nadia 03-02-2025 Band form neutrophils/100 WBC (Bld) 0 % Normal 0-5 [facility] Comment on above: Performed By: #### C BC #### [address] [place] [address] Basophils/100 WBC (Bld) 1 % Normal 0-3 [facility] Comment on above: Performed By: #### C BC #### [address] [place] [address] Eosinophils/100 WBC (Bld) 9 % High 0-7 [facility] Comment on above: Performed By: #### C BC #### [address] [address] Lymphocytes/100 WBC (Bld) 18 % Normal 14-42 [facility] Comment on above: Performed By: #### C BC #### [address] [place] [address] Monocytes/100 WBC (Bld) 9 % Normal 1-11 [facility] Comment on above: Performed By: #### C BC #### [address] [place] [address] Platelet estimate Adequate Normal [facility] Comment on above: Performed By: #### C BC #### [address] [place] [address] RBC morphology finding Nom (Bld) Normal Normal [facility] Comment on above: Performed By: #### C BC #### [address] [place] [address] Segs Man 63 % Normal 49-79 [facility] Comment on above: Performed By: #### C BC #### [address] [place] [address] HSTI Randomon 03-02-2025 hs Troponin I 10 ng/L Normal 0-20 [facility] Comment on above: Performed By: #### C BC #### [address] [place] [address] Hep Func Panelon 03-02-2025 Albumin [Mass/Vol] 3.1 g/dL Low 3.2-4.9 [facility] Comment on above: Performed By: #### T SH #### [address] [address] Alk Phos 70 IU/L Normal 32-91 [facility] Comment on above: Performed By: #### T SH #### [address] [address] ALT [Catalytic activity/Vol] 18 U/L Normal 17-63 [facility] Comment on above: Performed By: #### T SH #### [address] [address] AST [Catalytic activity/Vol] 18 U/L Normal 15-41 [facility] Comment on above: Performed By: #### T SH #### [address] [address] Bili Direct 0.2 mg/dL Normal 0.1-0.5 [facility] Comment on above: Performed By: #### T SH #### [address] [address] Bili Indirect 0.6 mg/dL Normal 0.0-1.0 [facility] Comment on above: Performed By: #### T SH #### [address] [address] Bili Total 0.8 mg/dL Normal 0.3-1.2 [facility] Comment on above: Performed By: #### T SH #### [address] [address] Protein [Mass/Vol] 5.7 g/dL Low 6.5-8.1 [facility] Comment on above: Performed By: #### T SH #### [address] [address] MRI Brain + MRA Head w/o Con traston 03-02-2025 MRI Brain + MRA Head w/o Contrast EXAM: MRI Brain + MRA Head w/o Contrast HISTORY: Cerebrovascular accident. Confusion. COMPARISON: None. Correlation with CT head from earlier same date. TECHNIQUE: MRI of the brain was performed without intravenous contrast utilizing the following sequences: Axial diffusion weighted imaging, axial susceptibility weighted imaging, sagittal T1, axial T1, axial T2, axial T2 FLAIR, and coronal T2. MRA of the head was performed without contrast utilizing axial 3-D [id number] imaging. Sagittal and coronal reformats and maximum intensity projections were obtained. FINDINGS: MRI BRAIN: Motion degraded examination. There is proportional prominence of the ventricles and sulci compatible with mild generalized parenchymal volume loss. There are a few scattered foci of hyperintensity on T2-weighted imaging throughout the supratentorial periventricular and subcortical white matter, which are nonspecific, but probably represent mild chronic microvascular ischemic change. There is no restricted diffusion. There is no acute intracranial hemorrhage, extra axial collection, or abnormal susceptibility, noting motion degradation. There is no mass, midline shift, or hydrocephalus. No suspicious osseous lesion, noting motion degradation. There is mild mucosal thickening in the right maxillary sinus. The mastoid air cells are well aerated. Post bilateral lens replacements. MRA HEAD: Motion degraded examination. Internal carotid arteries are patent without hemodynamic the significant stenosis. The A1 segment of the left anterior cerebral artery is poorly visualized, possibly hypoplastic, stenotic, or secondary to motion artifact. The anterior communicating artery appears to be predominantly supplied by the A1 segment of the right anterior cerebral artery. The A2 and A3 segments of the anterior cerebral arteries are suboptimally evaluated secondary to motion. The M1 and proximal M2 segments of the middle cerebral arteries are patent without dynamically significant stenosis. The more distal middle cerebellar arteries are markedly suboptimally evaluated secondary to motion artifact. The left vertebral artery is dominant. The distal V3 and proximal V4 segments of the nondominant right vertebral artery are poorly visualized. The intracranial dominant left vertebral artery, basilar artery, and bilateral posterior cerebral arteries are patent without hemodynamically significant stenosis. No definite aneurysm or arteriovenous malformation is identified. IMPRESSION: 1. Motion degraded MRI of the brain without definite acute intracranial abnormality. 2. Mild generalized parenchymal volume loss. Nonspecific scattered white matter T2 hyperintensities, probably mild chronic microvascular ischemic change. 3. Motion degraded MRA of the head. Poor visualization of the A1 segment of the left anterior cerebral artery and portions of the nondominant right vertebral artery, probably due to diminutive caliber/hypoplasia or secondary to motion, however areas of stenosis are not excluded. Marked motion degradation of the A2 and A3 segments of the anterior cerebral arteries and distal middle cerebral arteries. Consider repeat evaluation as clinically warranted and feasible or correlation with CT angiography if continued clinical concern for arterial stenosis. Final Dictated by: Juan Alberto Baeza MD Dictated DT/TM: 03/02/2025 11:42 am Signed by: Juan Alberto Baeza MD Signed (Electronic Signature): 03/02/2025 11:56 am (If Report Is Signed, Electronically Signed in Other Vendor System) Normal [facility] Comment on above: Order Comment: Not a lert - needs screened by familyno phone numbers in chartNurse to call back 03/02 @ 5811 Magnesiumon 03-02-2025 Magnesium [Mass/Vol] 2.0 mg/dL Normal 1.7-2.4 [facility] Comment on above: Performed By: #### M G ####[id number] [place] [address] Orthopedic Progress Noteon 0 03-02-2025 Orthopedic Progress Note Subjective Hospitalist consulted for worsening confusion Patient slightly difficult to understand, able to state location and year but then talks about how he made breakfast this am Patient has been off narcotics Denies having any pain, n/v, chest pain, SOB UA yesterday negative AM labs pending Objective Vitals & Measurements T: 37.4 ?C (Oral) HR: 80 (Peripheral) RR: 16 BP: 147/77 SpO2: 93% HT: 193.04 cm HT: 192 cm WT: 116.9 kg BMI: 33.56 BMI: 33.2 Additional Vitals No qualifying data available. Lab Results Microbiology - Current Encounter No qualifying data available. Physical Exam Alert and oriented to person, place and time but then rambles about unrelated things Dressing - C/D/I bilateral foot drops Medications Inpatient allopurinol, 300 mg, Oral, Daily amLODIPine, 5 mg, Oral, BID Colace, 100 mg, Oral, BID Detrol LA, 4 mg, Oral, HS (at bedtime) Dulcolax Laxative, 10 mg, Oral, Daily, PRN Dulcolax Laxative, 10 mg= 1 supp, Rectal, Daily, PRN Fleet Enema 7 g-19 g rectal enema, 133 mL, Rectal, Daily, PRN folic acid, 1 mg, Oral, Daily hydroCHLOROthiazide, 25 mg, Oral, Daily Klor-Con M20, 20 mEq, Oral, Daily Lipitor, 40 mg, Oral, HS (at bedtime) losartan, 25 mg, Oral, Daily MiraLax, 17 g= 1 EA, Oral, Daily Multiple Vitamins oral tablet, 1 tabs, Oral, Daily Myrbetriq, 50 mg, Oral, Daily SEROquel, 25 mg, Oral, HS (at bedtime) thiamine, 100 mg, Oral, Daily Tylenol, 650 mg, Oral, q5ld-Pdagiptq Times, PRN Zofran, 4 mg= 2 mL, IV Push, q4hr, PRN Assessment/Plan POD#5 s/p L2-5 decompression and fusion with durotomy Plan: 1. Continue drains 2. Tylenol prn pain 3. Activity - as tolerated. PT/OT, back brace when ambulating. If patient develops a headache, have him lay flat 4. AM labs pending 5. Hospitalist consult for worsening confusion, work up pending, appreciate input 6. Discharge pending - SNF Electronically signed by ___ Christian Rae PA-C 03/02/25 07:10 EDT Normal [facility] Phosphoruson 03-02-2025 Phosphate [Mass/Vol] 2.6 mg/dL Normal 2.5-4.6 [facility] Comment on above: Performed By: #### C #### [address] [address] Progress Note-Nurseon 2024 Progress Note-Nurse This nurse notified by PCT Kaelyn Martini that patient presented alert and oriented x4 Friday February 07, 2025. This nurse entered patients room at 0650. Upon assessment patient presented with AMS, able to identify self, disorientated x3. Patient speech slurred, arm drifts bilaterally in upper and lower extremities. This nurse immediately called hospitalist Dr. Mccloud put in orders for stat MRI, blood cultures, NIH Q4. CT scan ordered on maintenance technician 2nd shift, this nurse called down to get him in right away. This nurse also called to notify and have her answer questions for MRI. Electronically signed by ___ Ja Egan 03/02/25 09:12 EDT Normal [facility] TSHon 03-02-2025 TSH Qn 1.31 m[IU]/L Normal 0.45-5.33 [facility] Comment on above: Result Comment: Refe rence Ranges for individuals from to 18 years of age were obtained from The [employer] Handbook (20 ed) published by [facility]. Reference Ranges for Females: Females, 1st Trimester 0.05 ? 3.7 uIU/mL Females, 2nd Trimester 0.31 ? 4.35 uIU/mL Females, 3rd Trimester 0.41 ? 5.18 uIU/mL Performed By: #### T SH #### [address] [address] UA w Culture if Indon 2024 Color (U) Light-Yellow Normal Yellow [facility] Comment on above: Performed By: #### C BC #### [address] [address] Ketones Ql (U) Negative Normal Negative [facility] Comment on above: Performed By: #### C BC #### [address] [address] UA Blood Negative Normal Negative [facility] Comment on above: Performed By: #### C BC #### [address] [address] UA Clarity Clear Normal Clear [facility] Comment on above: Performed By: #### C BC #### [address] [address] UA Glucose Normal Normal Negative [facility] Comment on above: Performed By: #### C BC #### [address] [address] UA Leukocyte Esterase Negative Normal Negative [facility] Comment on above: Performed By: #### C BC #### [address] [address] UA Nitrite Negative Normal Negative [facility] Comment on above: Performed By: #### C BC #### [address] [address] UA pH 6.5 Normal 4.5 - 7.8 [facility] Comment on above: Performed By: #### C BC #### [address] [place] [address] UA Protein Negative Normal Negative [facility] Comment on above: Performed By: #### C BC #### [address] [address] UA Source Clean Catch Normal [facility] Comment on above: Performed By: #### C BC #### [address] [address] UA Spec Grav 1.014 Normal 1.003-1.035 [facility] Comment on above: Performed By: #### C BC #### [address] [address] UA Urobilinogen Normal Normal 0.2 - 1.0 [facility] Comment on above: Performed By: #### C BC #### [address] [address] Urobilinogen (U) [Mass/Vol] Negative Normal Negative [facility] Comment on above: Performed By: #### C BC #### [address] [address] XR Chest 1 Viewon 03-02-2025 XR Chest 1 View EXAM: XR Chest 1 Vie w HISTORY: Other (please specify), AMS; evaluate for infection, , , COMPARISON: 04/28/2020 TECHNIQUE: Single frontal view of the chest was obtained. FINDINGS/IMPRESSION: The cardiomediastinal silhouette is not enlarged. Low lung volumes. Osseous structures are acutely intact. No pneumothorax, consolidation or pleural effusion. Final Dictated by: Gage Silva DO Dictated DT/TM: 03/02/2025 7:30 am Signed by: Gage Silva DO Signed (Electronic Signature): 03/02/2025 7:31 am (If Report Is Signed, Electronically Signed in Other Vendor System) Normal [facility] .eGFRon 03-01-2025 GFR/1.73 sq M.predicted MDRD (S/P/Bld) [Vol rate/Area] mL/min/{1.73_m2} Normal >=60 [facility] Comment on above: Result Comment: [facility] have implemented the eGFR calculation approach that does not have a coefficient for race and that conforms to the NKF-ASN Task Force Recommendations. Stages of Chronic Kidney Disease GFR Stage 3a Mild to moderate loss of kidney function 59 to 45 Stage 3b Moderate to severe loss of kidney function 44 to 33 Stage 4 Severe loss of kidney function 29 to 15 Stage 5 Kidney failure Less than 15 GFR calculated using the CKD-Epi Creatinine Equation (2020): eGFR = 142 X min(SCr/?, 1)? X max(SCr /?, 1)-1.200 X 0.9938Age X 1.012 [if female] Abbreviations/Units: eGFR (estimated glomerular filtration rate) = mL/min/1.73 m2 SCr (standardized serum creatinine) = mg/dL ? = 0.7 (females) or 0.9 (males) ? = -0.241 (females) or -0.302 (males) min = indicates the minimum of SCr/? or 1 max = indicates the maximum of SCr/? or 1 Age = years Performed By: #### . Manual Diff #### [address] [address] Basic Metabolic Profileon Anion gap [Moles/Vol] 7 mmol/L Normal 4-12 [facility] Comment on above: Performed By: #### C [id number] #### [address] [address] Calcium [Mass/Vol] 8.9 mg/dL Normal 8.5-10.3 [facility] Comment on above: Performed By: #### C [id number] #### [address] [address] Chloride [Moles/Vol] 100 mmol/L Normal 98-110 [facility] Comment on above: Performed By: #### C [id number] #### [address] [address] CO2 [Moles/Vol] 28 mmol/L Normal 22-32 [facility] Comment on above: Performed By: #### C [id number] #### [address] [address] Creatinine [Mass/Vol] 0.60 mg/dL Low 0.61-1.24 [facility] Comment on above: Performed By: #### C [id number] #### [address] [address] Glucose [Mass/Vol] 118 mg/dL High 70-99 [facility] Comment on above: Performed By: #### C [id number] #### [address] [address] Potassium [Moles/Vol] 3.0 mmol/L Low 3.4-4.8 [facility] Comment on above: Performed By: #### C [id number] #### [address] [address] Sodium [Moles/Vol] 135 mmol/L Normal 133-142 [facility] Comment on above: Performed By: #### C [id number] #### [address] [address] Urea nitrogen [Mass/Vol] 11 mg/dL Normal 8-26 [facility] Comment on above: Performed By: #### C [id number] #### [address] [address] Urea nitrogen/Creatinine [Mass ratio] 18.3 mg/mg Normal 10.0-20.0 [facility] Comment on above: Performed By: #### C [id number] #### [address] [address] CBC w/ Diffon 03-01-2025 Erythrocyte distribution width (RBC) [Ratio] 13.4 % Normal 11.6-14.8 [facility] Comment on above: Performed By: #### C BC #### [address] [address] Hematocrit (Bld) [Volume fraction] 34.8 % Low 41.0-53.0 [facility] Comment on above: Performed By: #### C BC #### [address] [address] Hemoglobin (Bld) [Mass/Vol] 11.8 g/dL Low 13.5-17.5 [facility] Comment on above: Performed By: #### C BC #### [address] [address] MCH (RBC) [Entitic mass] 31.9 pg Normal 27.0-35.0 [facility] Comment on above: Performed By: #### C BC #### [address] [address] MCHC 33.9 % Normal 31.0-37.0 [facility] Comment on above: Performed By: #### C BC #### [address] [address] MCV (RBC) [Entitic vol] 94.1 fL Normal 80.0-100.0 [facility] Comment on above: Performed By: #### C BC #### [address] [address] Platelet 210 x10*3/mcL Normal 150-450 [facility] Comment on above: Performed By: #### C BC #### [address] [address] Platelet mean volume (Bld) [Entitic vol] 8.6 fL Normal 6.7-10.6 [facility] Comment on above: Performed By: #### C BC #### [address] [address] RBC 3.70 x10*6/mcL Low 4.30-5.80 [facility] Comment on above: Performed By: #### C BC #### [address] [address] WBC 9.3 x10*3/mcL Normal 4.5-11.0 [facility] Comment on above: Performed By: #### C BC #### [address] [address] Diff Autoon 03-01-2025 Baso Absolute 0.1 x10*3/mcL Normal 0.0-0.2 [facility] Comment on above: Performed By: #### C BC #### [address] [address] Basophils/100 WBC (Bld) 0.5 % Normal 0.0-1.2 [facility] Comment on above: Performed By: #### C BC #### [address] [address] Eos Absolute 0.3 x10*3/mcL Normal 0.0-0.4 [facility] Comment on above: Performed By: #### C BC #### [address] [address] Eosinophils/100 WBC (Bld) 3.3 % Normal 0.0-6.1 [facility] Comment on above: Performed By: #### C BC #### [address] [address] Lymph Absolute 1.2 x10*3/mcL Normal 1.0-4.8 [facility] Comment on above: Performed By: #### C BC #### [address] [address] Lymphocytes/100 WBC (Bld) 12.6 % Low 27.2-40.8 [facility] Comment on above: Performed By: #### C BC #### [address] [address] Phelps Absolute 1.2 x10*3/mcL High 0.3-1.1 [facility] Comment on above: Performed By: #### C BC #### [address] [address] Monocytes/100 WBC (Bld) 12.4 % Normal 4.7-13.9 [facility] Comment on above: Performed By: #### C BC #### [address] [address] Neutro Absolute 6.6 x10*3/mcL Normal 1.8-7.7 [facility] Comment on above: Performed By: #### C BC #### [address] [address] Neutro Auto 71.2 % High 47.2-70.8 [facility] Comment on above: Performed By: #### C BC #### [address] [address] Diff Nadia 03-01-2025 Band form neutrophils/100 WBC (Bld) 1 % Normal 0-5 [facility] Comment on above: Performed By: #### C BC #### [address] [address] Basophils/100 WBC (Bld) 0 % Normal 0-3 [facility] Comment on above: Performed By: #### C BC #### [address] [address] Eosinophils/100 WBC (Bld) 0 % Normal 0-7 [facility] Comment on above: Performed By: #### C BC #### [address] [address] Hypochromasia Slight Normal [facility] Comment on above: Performed By: #### C BC #### [address] [address] Lymphocytes/100 WBC (Bld) 8 % Low 14-42 [facility] Comment on above: Performed By: #### C BC #### [address] [address] Monocytes/100 WBC (Bld) 5 % Normal 1-11 [facility] Comment on above: Performed By: #### C BC #### [facility] [address] [place] [address] Platelet estimate Adequate Normal [facility] Comment on above: Performed By: #### C BC #### [facility] [address] [place] [address] React Lymph Man 4 % Normal 0-5 [facility] Comment on above: Performed By: #### C BC #### [facility] [address] [place] [address] Segs Man 82 % High 49-79 [facility] Comment on above: Performed By: #### C BC #### [facility] [address] [place] [address] Orthopedic Progress Noteon 0 03-01-2025 Orthopedic Progress Note Subjective Surgical site pain controlled, off pain medication Chronic neuropathy in feet ++BM, loose stools Barker removed, c/o incontinence, present preop Still with hallucinations all day yesterday per patient Denies headaches Objective Vitals & Measurements T: 37.2 ?C (Axillary) HR: 70 (Monitored) RR: 16 BP: 125/59 SpO2: 95% HT: 193.04 cm HT: 192 cm WT: 120.7 kg BMI: 33.56 BMI: 33.2 Additional Vitals No qualifying data available. Lab Results Microbiology - Current Encounter No qualifying data available. Physical Exam Dressing - C/D/I Motor 5/5 except 0/5 right TA and 2-3/5 left TA, baseline foot drops Alert and oriented x3 Medications Inpatient allopurinol, 300 mg, Oral, Daily amLODIPine, 5 mg, Oral, BID Ativan, 1 mg= 0.5 mL, IV Push, q6hr, PRN Colace, 100 mg, Oral, BID cyclobenzaprine, 10 mg, Oral, q8hr, PRN Detrol LA, 4 mg, Oral, HS (at bedtime) Dulcolax Laxative, 10 mg, Oral, Daily, PRN Dulcolax Laxative, 10 mg= 1 supp, Rectal, Daily, PRN Fleet Enema 7 g-19 g rectal enema, 133 mL, Rectal, Daily, PRN hydroCHLOROthiazide, 25 mg, Oral, Daily Klor-Con M20, 20 mEq, Oral, Daily Lipitor, 40 mg, Oral, HS (at bedtime) losartan, 25 mg, Oral, Daily MiraLax, 17 g= 1 EA, Oral, Daily morphine, 2 mg= 1 mL, IV Push, q3hr, PRN Myrbetriq, 50 mg, Oral, Daily NS 1,000 mL, 1000 mL, IV Percocet 5/325 oral tablet, 1 tabs, Oral, q4hr, PRN Tylenol, 650 mg, Oral, [id number] Times, PRN Zofran, 4 mg= 2 mL, IV Push, q4hr, PRN Assessment/Plan POD#4 s/p L2-5 decompression and fusion with durotomy Plan: 1. Continue drains 2. Tylenol prn pain 3. Activity - as tolerated. PT/OT, back brace when ambulating. If patient develops a headache, have him lay flat 4. AM labs, hgb stable. Potassium recheck 5. UA ordered 6. Discharge pending - SNF Electronically signed by ___ Christian Rae PA-C 03/01/25 14:44 EDT Normal [facility] Potassiumon 03-01-2025 Potassium [Moles/Vol] 3.4 mmol/L Normal 3.4-4.8 [facility] Comment on above: Performed By: #### C [id number] #### [place] [address] .eGFRon 02-28-2025 GFR/1.73 sq M.predicted MDRD (S/P/Bld) [Vol rate/Area] mL/min/{1.73_m2} Normal >=60 [facility] Comment on above: Result Comment: [facility] Laboratories have implemented the eGFR calculation approach that does not have a coefficient for race and that conforms to the NKF-ASN Task Force Recommendations. Stages of Chronic Kidney Disease GFR Stage 3a Mild to moderate loss of kidney function 59 to 45 Stage 3b Moderate to severe loss of kidney function 44 to 33 Stage 4 Severe loss of kidney function 29 to 15 Stage 5 Kidney failure Less than 15 GFR calculated using the CKD-Epi Creatinine Equation (2020): eGFR = 142 X min(SCr/?, 1)? X max(SCr /?, 1)-1.200 X 0.9938Age X 1.012 [if female] Abbreviations/Units: eGFR (estimated glomerular filtration rate) = mL/min/1.73 m2 SCr (standardized serum creatinine) = mg/dL ? = 0.7 (females) or 0.9 (males) ? = -0.241 (females) or -0.302 (males) min = indicates the minimum of SCr/? or 1 max = indicates the maximum of SCr/? or 1 Age = years Performed By: #### C [id number] #### [address] [address] Basic Metabolic Profileon Anion gap [Moles/Vol] 6 mmol/L Normal 4-12 [facility] Comment on above: Performed By: #### C [id number] ####[address] [address] Calcium [Mass/Vol] 8.7 mg/dL Normal 8.5-10.3 [facility] Comment on above: Performed By: #### C [id number] ####[id number] [place] [address] Chloride [Moles/Vol] 101 mmol/L Normal 98-110 [facility] Comment on above: Performed By: #### C [id number] ####[address] [address] CO2 [Moles/Vol] 28 mmol/L Normal 22-32 [facility] Comment on above: Performed By: #### C [id number] ####[address] [address] Creatinine [Mass/Vol] 0.63 mg/dL Normal 0.61-1.24 [facility] Comment on above: Performed By: #### C [id number] ####[address] [address] Glucose [Mass/Vol] 115 mg/dL High 70-99 [facility] Comment on above: Performed By: #### C [id number] ####[address] [address] Potassium [Moles/Vol] 3.3 mmol/L Low 3.4-4.8 [facility] Comment on above: Performed By: #### C [id number] ####[address] [address] Sodium [Moles/Vol] 135 mmol/L Normal 133-142 [facility] Comment on above: Performed By: #### C [id number] ####[address] [address] Urea nitrogen [Mass/Vol] 12 mg/dL Normal 8-26 [facility] Comment on above: Performed By: #### C [id number] ####[address] [address] Urea nitrogen/Creatinine [Mass ratio] 19.0 mg/mg Normal 10.0-20.0 [facility] Comment on above: Performed By: #### C [id number] ####[address] [address] CBC w/ Diffon 02-28-2025 Erythrocyte distribution width (RBC) [Ratio] 13.4 % Normal 11.6-14.8 [facility] Comment on above: Performed By: #### T SH #### [address] [address] Hematocrit (Bld) [Volume fraction] 32.5 % Low 41.0-53.0 [facility] Comment on above: Performed By: #### T SH #### [address] [address] Hemoglobin (Bld) [Mass/Vol] 11.4 g/dL Low 13.5-17.5 [facility] Comment on above: Performed By: #### T SH #### [id number] MCH (RBC) [Entitic mass] 32.9 pg Normal 27.0-35.0 [facility] Comment on above: Performed By: #### T SH #### [id number] MCHC 35.1 % Normal 31.0-37.0 [facility] Comment on above: Performed By: #### T SH #### [id number] MCV (RBC) [Entitic vol] 93.8 fL Normal 80.0-100.0 [facility] Comment on above: Performed By: #### T SH #### [id number] Platelet 181 x10*3/mcL Normal 150-450 [facility] Comment on above: Performed By: #### T SH #### [id number] Platelet mean volume (Bld) [Entitic vol] 8.6 fL Normal 6.7-10.6 [facility] Comment on above: Performed By: #### T SH #### [address] [address] RBC 3.46 x10*6/mcL Low 4.30-5.80 [facility] Comment on above: Performed By: #### T SH #### [address] [address] WBC 8.2 x10*3/mcL Normal 4.5-11.0 [facility] Comment on above: Performed By: #### T SH #### [address] [address] Diff Autoon 02-28-2025 Baso Absolute 0.0 x10*3/mcL Normal 0.0-0.2 [facility] Comment on above: Performed By: #### T SH #### [address] [address] Basophils/100 WBC (Bld) 0.4 % Normal 0.0-1.2 [facility] Comment on above: Performed By: #### T SH #### [address] [address] Eos Absolute 0.3 x10*3/mcL Normal 0.0-0.4 [facility] Comment on above: Performed By: #### T SH #### [address] [address] Eosinophils/100 WBC (Bld) 3.1 % Normal 0.0-6.1 [facility] Comment on above: Performed By: #### T SH #### [address] [address] Lymph Absolute 1.1 x10*3/mcL Normal 1.0-4.8 [facility] Comment on above: Performed By: #### T SH #### [address] [address] Lymphocytes/100 WBC (Bld) 12.9 % Low 27.2-40.8 [facility] Comment on above: Performed By: #### T SH #### [address] [address] Phelps Absolute 0.9 x10*3/mcL Normal 0.3-1.1 [facility] Comment on above: Performed By: #### T SH #### [address] [address] Monocytes/100 WBC (Bld) 11.2 % Normal 4.7-13.9 [facility] Comment on above: Performed By: #### T SH #### [address] [address] Neutro Absolute 5.9 x10*3/mcL Normal 1.8-7.7 [facility] Comment on above: Performed By: #### T SH #### [facility] [address] [place] [address] Neutro Auto 72.4 % High 47.2-70.8 [facility] Comment on above: Performed By: #### T #### [facility] [address] [place] [address] Orthopedic Progress Noteon 0 02-28-2025 Orthopedic Progress Note Subjective POD#4, reports he just worked with PT. Patient reports ambulated in the room and sat in chair. Denies hallucinations since off pain meds C/o surgical site pain Barker still in place, remove today +small BM. Denies headache Objective Vitals & Measurements T: 36.5 ?C (Oral) HR: 73 (Peripheral) RR: 16 BP: 154/74 SpO2: 93% HT: 193.04 cm HT: 192 cm WT: 120.7 kg BMI: 33.56 BMI: 33.2 Additional Vitals No qualifying data available. Lab Results Microbiology - Current Encounter No qualifying data available. Physical Exam Dressing C/D/I Alert and oriented x3 Motor 5/5 except 0/5 right TA and 2-3/5 left TA, baseline foot drops Sensory intact to touch LE Medications Inpatient allopurinol, 300 mg, Oral, Daily amLODIPine, 5 mg, Oral, BID Ativan, 1 mg= 0.5 mL, IV Push, q6hr, PRN Colace, 100 mg, Oral, BID cyclobenzaprine, 10 mg, Oral, q8hr, PRN Detrol LA, 4 mg, Oral, HS (at bedtime) Dulcolax Laxative, 10 mg, Oral, Daily, PRN Dulcolax Laxative, 10 mg= 1 supp, Rectal, Daily, PRN Fleet Enema 7 g-19 g rectal enema, 133 mL, Rectal, Daily, PRN hydroCHLOROthiazide, 25 mg, Oral, Daily Klor-Con M20, 20 mEq, Oral, Daily Lipitor, 40 mg, Oral, HS (at bedtime) losartan, 25 mg, Oral, Daily MiraLax, 17 g= 1 EA, Oral, Daily morphine, 2 mg= 1 mL, IV Push, q3hr, PRN Myrbetriq, 50 mg, Oral, Daily NS 1,000 mL, 1000 mL, IV Percocet 5/325 oral tablet, 1 tabs, Oral, q4hr, PRN Tylenol, 650 mg, Oral, [id number] Times, PRN Zofran, 4 mg= 2 mL, IV Push, q4hr, PRN Assessment/Plan POD#4 s/p L2-5 decompression and fusion with durotomy Plan: 1. Continue drains 2. Tylenol prn pain 3. Activity - as tolerated. PT/OT, back brace when ambulating. 4. AM labs, hgb stable 5. Bowel meds 6. Remove barker 7. Discharge pending - SNF Electronically signed by ___ Kirk Weber PA-C 02/28/25 10:30 EDT Normal [facility] .eGFRon 02-27-2025 GFR/1.73 sq M.predicted MDRD (S/P/Bld) [Vol rate/Area] mL/min/{1.73_m2} Normal >=60 [facility] Comment on above: Result Comment: [facility] Laboratories have implemented the eGFR calculation approach that does not have a coefficient for race and that conforms to the NKF-ASN Task Force Recommendations. Stages of Chronic Kidney Disease GFR Stage 3a Mild to moderate loss of kidney function 59 to 45 Stage 3b Moderate to severe loss of kidney function 44 to 33 Stage 4 Severe loss of kidney function 29 to 15 Stage 5 Kidney failure Less than 15 GFR calculated using the CKD-Epi Creatinine Equation (2020): eGFR = 142 X min(SCr/?, 1)? X max(SCr /?, 1)-1.200 X 0.9938Age X 1.012 [if female] Abbreviations/Units: eGFR (estimated glomerular filtration rate) = mL/min/1.73 m2 SCr (standardized serum creatinine) = mg/dL ? = 0.7 (females) or 0.9 (males) ? = -0.241 (females) or -0.302 (males) min = indicates the minimum of SCr/? or 1 max = indicates the maximum of SCr/? or 1 Age = years Performed By: #### . Manual Diff #### [address] [place] [address] Basic Metabolic Profileon Anion gap [Moles/Vol] 5 mmol/L Normal 4-12 [facility] Comment on above: Performed By: #### C BC #### [address] [place] [address] Calcium [Mass/Vol] 8.5 mg/dL Normal 8.5-10.3 [facility] Comment on above: Performed By: #### C BC #### [address] [place] [address] Chloride [Moles/Vol] 103 mmol/L Normal 98-110 [facility] Comment on above: Performed By: #### C BC #### [address] [address] CO2 [Moles/Vol] 27 mmol/L Normal 22-32 [facility] Comment on above: Performed By: #### C BC #### [address] [place] [address] Creatinine [Mass/Vol] 0.56 mg/dL Low 0.61-1.24 [facility] Comment on above: Performed By: #### C BC #### [address] [place] [address] Glucose [Mass/Vol] 116 mg/dL High 70-99 [facility] Comment on above: Performed By: #### C BC #### [address] [place] [address] Potassium [Moles/Vol] 3.5 mmol/L Normal 3.4-4.8 [facility] Comment on above: Performed By: #### C BC #### [address] [place] [address] Sodium [Moles/Vol] 135 mmol/L Normal 133-142 [facility] Comment on above: Performed By: #### C BC #### [address] [address] Urea nitrogen [Mass/Vol] 11 mg/dL Normal 8-26 [facility] Comment on above: Performed By: #### C BC #### [address] [address] Urea nitrogen/Creatinine [Mass ratio] 19.6 mg/mg Normal 10.0-20.0 [facility] Comment on above: Performed By: #### C BC #### [address] [address] CBC w/ Diffon 02-27-2025 Erythrocyte distribution width (RBC) [Ratio] 13.6 % Normal 11.6-14.8 [facility] Comment on above: Performed By: #### C BC #### [address] [address] Hematocrit (Bld) [Volume fraction] 31.9 % Low 41.0-53.0 [facility] Comment on above: Performed By: #### C BC #### [address] [address] Hemoglobin (Bld) [Mass/Vol] 10.8 g/dL Low 13.5-17.5 [facility] Comment on above: Performed By: #### C BC #### [address] [address] MCH (RBC) [Entitic mass] 32.3 pg Normal 27.0-35.0 [facility] Comment on above: Performed By: #### C BC #### [address] [address] MCHC 34.0 % Normal 31.0-37.0 [facility] Comment on above: Performed By: #### C BC #### [address] [address] MCV (RBC) [Entitic vol] 95.0 fL Normal 80.0-100.0 [facility] Comment on above: Performed By: #### C BC #### [address] [address] Platelet 159 x10*3/mcL Normal 150-450 [facility] Comment on above: Performed By: #### C BC #### [address] [address] Platelet mean volume (Bld) [Entitic vol] 8.4 fL Normal 6.7-10.6 [facility] Comment on above: Performed By: #### C BC #### [address] [address] RBC 3.36 x10*6/mcL Low 4.30-5.80 [facility] Comment on above: Performed By: #### C BC #### [address] [address] WBC 8.6 x10*3/mcL Normal 4.5-11.0 [facility] Comment on above: Performed By: #### C BC #### [address] [address] Diff Autoon 02-27-2025 Baso Absolute 0.1 x10*3/mcL Normal 0.0-0.2 [facility] Comment on above: Performed By: #### . Manual Diff #### [address] [address] Basophils/100 WBC (Bld) 0.6 % Normal 0.0-1.2 [facility] Comment on above: Performed By: #### . Manual Diff #### [address] [address] Eos Absolute 0.2 x10*3/mcL Normal 0.0-0.4 [facility] Comment on above: Performed By: #### . Manual Diff #### [address] [address] Eosinophils/100 WBC (Bld) 1.9 % Normal 0.0-6.1 [facility] Comment on above: Performed By: #### . Manual Diff #### [address] [address] Lymph Absolute 1.1 x10*3/mcL Normal 1.0-4.8 [facility] Comment on above: Performed By: #### . Manual Diff #### [address] [address] Lymphocytes/100 WBC (Bld) 13.1 % Low 27.2-40.8 [facility] Comment on above: Performed By: #### . Manual Diff #### [address] [address] Phelps Absolute 1.0 x10*3/mcL Normal 0.3-1.1 [facility] Comment on above: Performed By: #### . Manual Diff #### [address] [address] Monocytes/100 WBC (Bld) 11.3 % Normal 4.7-13.9 [facility] Comment on above: Performed By: #### . Manual Diff #### [address] [address] Neutro Absolute 6.2 x10*3/mcL Normal 1.8-7.7 [facility] Comment on above: Performed By: #### . Manual Diff #### [address] [address] Neutro Auto 73.1 % High 47.2-70.8 [facility] Comment on above: Performed By: #### . Manual Diff #### [address] [address] Orthopedic Progress Noteon 0 02-27-2025 Orthopedic Progress Note Subjective POD#1, multiple complaints this am, feels uncomfortable (+) hallucinations, now only taking Tylenol C/o surgical site pain, knee pain, no new numbness/tingling. Chronic neuropathy Barker still in place, doesn't want removed due to overactive bladder +small BM. Denies headache Objective Vitals & Measurements T: 36.9 ?C (Oral) HR: 75 (Peripheral) RR: 16 BP: 146/73 SpO2: 94% HT: 193.04 cm HT: 192 cm WT: 122.4 kg BMI: 33.56 BMI: 33.2 Additional Vitals No qualifying data available. Lab Results Microbiology - Current Encounter No qualifying data available. Diagnostic Results Diagnostic Radiology XR OR Spine Lumbar Crossfire 02/24/25 19:05:43 This report was not created by a radiologist, physician, or advanced practice provider. The details of this surgical case can be found within the surgical operative note. The surgical Operative note is located within the patient?s chart. Signed By: Joyce Lucero Physical Exam Dressing C/D/I Alert and oriented x3 Motor 5/5 except 0/5 right TA and 2-3/5 left TA, baseline foot drops Sensory intact to touch LE Medications Inpatient allopurinol, 300 mg, Oral, Daily amLODIPine, 5 mg, Oral, BID Ativan, 1 mg= 0.5 mL, IV Push, q6hr, PRN Colace, 100 mg, Oral, BID cyclobenzaprine, 10 mg, Oral, q8hr, PRN Detrol LA, 4 mg, Oral, HS (at bedtime) Dulcolax Laxative, 10 mg, Oral, Daily, PRN Dulcolax Laxative, 10 mg= 1 supp, Rectal, Daily, PRN Fleet Enema 7 g-19 g rectal enema, 133 mL, Rectal, Daily, PRN hydroCHLOROthiazide, 25 mg, Oral, Daily Klor-Con M20, 20 mEq, Oral, Daily Lipitor, 40 mg, Oral, HS (at bedtime) losartan, 25 mg, Oral, Daily MiraLax, 17 g= 1 EA, Oral, Daily morphine, 2 mg= 1 mL, IV Push, q3hr, PRN Myrbetriq, 50 mg, Oral, Daily NS 1,000 mL, 1000 mL, IV Percocet 5/325 oral tablet, 1 tabs, Oral, q4hr, PRN Tylenol, 650 mg, Oral, [id number] Times, PRN Zofran, 4 mg= 2 mL, IV Push, q4hr, PRN Assessment/Plan POD#3 s/p L2-5 decompression and fusion with durotomy Plan: 1. Continue drains 2. Tylenol prn pain 3. Activity - as tolerated. PT/OT, back brace when ambulating. If patient develops a headache, have him lay flat 4. AM labs, hgb stable 5. Bowel meds 6. Remove barker 7. Discharge pending - SNF Electronically signed by ___ Christian Rae PA-C 02/27/25 08:15 EDT Normal [facility] .eGFRon 02-26-2025 GFR/1.73 sq M.predicted MDRD (S/P/Bld) [Vol rate/Area] mL/min/{1.73_m2} Normal >=60 [facility] Comment on above: Result Comment: [facility] Laboratories have implemented the eGFR calculation approach that does not have a coefficient for race and that conforms to the NKF-ASN Task Force Recommendations. Stages of Chronic Kidney Disease GFR Stage 3a Mild to moderate loss of kidney function 59 to 45 Stage 3b Moderate to severe loss of kidney function 44 to 33 Stage 4 Severe loss of kidney function 29 to 15 Stage 5 Kidney failure Less than 15 GFR calculated using the CKD-Epi Creatinine Equation (2020): eGFR = 142 X min(SCr/?, 1)? X max(SCr /?, 1)-1.200 X 0.9938Age X 1.012 [if female] Abbreviations/Units: eGFR (estimated glomerular filtration rate) = mL/min/1.73 m2 SCr (standardized serum creatinine) = mg/dL ? = 0.7 (females) or 0.9 (males) ? = -0.241 (females) or -0.302 (males) min = indicates the minimum of SCr/? or 1 max = indicates the maximum of SCr/? or 1 Age = years Performed By: #### E GFR ####[place] [id number] Basic Metabolic Profileon Creatinine [Mass/Vol] 0.81 mg/dL Normal 0.61-1.24 [facility] Comment on above: Performed By: #### . Manual Diff #### [address] [address] Urea nitrogen [Mass/Vol] 11 mg/dL Normal 8-26 [facility] Comment on above: Performed By: #### . Manual Diff #### [address] [address] Urea nitrogen/Creatinine [Mass ratio] 13.6 mg/mg Normal 10.0-20.0 [facility] Comment on above: Performed By: #### . Manual Diff #### [address] [address] Anion gap [Moles/Vol] 5 mmol/L Normal 4-12 [facility] Comment on above: Performed By: #### . Manual Diff #### [address] [address] Calcium [Mass/Vol] 8.4 mg/dL Low 8.5-10.3 [facility] Comment on above: Performed By: #### . Manual Diff #### [address] [address] Chloride [Moles/Vol] 104 mmol/L Normal 98-110 [facility] Comment on above: Performed By: #### . Manual Diff #### [address] [address] CO2 [Moles/Vol] 26 mmol/L Normal 22-32 [facility] Comment on above: Performed By: #### . Manual Diff #### [address] [address] Glucose [Mass/Vol] 112 mg/dL High 70-99 [facility] Comment on above: Performed By: #### . Manual Diff #### [address] [address] Potassium [Moles/Vol] 3.6 mmol/L Normal 3.4-4.8 [facility] Comment on above: Performed By: #### . Manual Diff #### [address] [address] Sodium [Moles/Vol] 135 mmol/L Normal 133-142 [facility] Comment on above: Performed By: #### . Manual Diff #### [address] [address] CBC w/ Diffon 02-26-2025 Erythrocyte distribution width (RBC) [Ratio] 13.7 % Normal 11.6-14.8 [facility] Comment on above: Performed By: #### C BC #### [facility] [address] [place] [address] Hematocrit (Bld) [Volume fraction] 32.0 % Low 41.0-53.0 [facility] Comment on above: Performed By: #### C BC #### [facility] [address] [place] [address] Hemoglobin (Bld) [Mass/Vol] 11.2 g/dL Low 13.5-17.5 [facility] Comment on above: Performed By: #### C BC #### [facility] [address] [place] [address] MCH (RBC) [Entitic mass] 33.1 pg Normal 27.0-35.0 [facility] Comment on above: Performed By: #### C BC #### [facility] [address] [place] [address] MCHC 34.9 % Normal 31.0-37.0 [facility] Comment on above: Performed By: #### C BC #### [place] [id number] MCV (RBC) [Entitic vol] 94.9 fL Normal 80.0-100.0 [facility] Comment on above: Performed By: #### C BC #### [facility] [address] [place] [address] Platelet 167 x10*3/mcL Normal 150-450 [facility] Comment on above: Performed By: #### C BC #### [facility] [address] [place] [address] Platelet mean volume (Bld) [Entitic vol] 8.5 fL Normal 6.7-10.6 [facility] Comment on above: Performed By: #### C BC #### [facility] [address] [place] [address] RBC 3.37 x10*6/mcL Low 4.30-5.80 [facility] Comment on above: Performed By: #### C BC #### [address] [address] WBC 9.9 x10*3/mcL Normal 4.5-11.0 [facility] Comment on above: Performed By: #### C BC #### [address] [address] Diff Autoon 02-26-2025 Baso Absolute 0.0 x10*3/mcL Normal 0.0-0.2 [facility] Comment on above: Performed By: #### . Manual Diff #### [address] [address] Basophils/100 WBC (Bld) 0.4 % Normal 0.0-1.2 [facility] Comment on above: Performed By: #### . Manual Diff #### [address] [address] Eos Absolute 0.1 x10*3/mcL Normal 0.0-0.4 [facility] Comment on above: Performed By: #### . Manual Diff #### [address] [address] Eosinophils/100 WBC (Bld) 0.6 % Normal 0.0-6.1 [facility] Comment on above: Performed By: #### . Manual Diff #### [address] [address] Lymph Absolute 1.4 x10*3/mcL Normal 1.0-4.8 [facility] Comment on above: Performed By: #### . Manual Diff #### [address] [address] Lymphocytes/100 WBC (Bld) 14.0 % Low 27.2-40.8 [facility] Comment on above: Performed By: #### . Manual Diff #### [address] [address] Phelps Absolute 1.0 x10*3/mcL Normal 0.3-1.1 [facility] Comment on above: Performed By: #### . Manual Diff #### [place] [address] [place] [address] Monocytes/100 WBC (Bld) 10.0 % Normal 4.7-13.9 [facility] Comment on above: Performed By: #### . Manual Diff #### [facility] [address] [place] [address] Neutro Absolute 7.4 x10*3/mcL Normal 1.8-7.7 [facility] Comment on above: Performed By: #### . Manual Diff #### [address] [address] Neutro Auto 75.0 % High 47.2-70.8 [facility] Comment on above: Performed By: #### . Manual Diff #### [address] [address] Orthopedic Progress Noteon 0 02-26-2025 Orthopedic Progress Note Subjective POD #2 Patient sitting up in bed. No headache. Denies leg pain. Chronic bilateral foot drops, right worse than left. No BM. Denies N/V Objective Vitals & Measurements T: 36.4 ?C (Oral) HR: 78 (Peripheral) RR: 16 BP: 135/79 SpO2: 95% HT: 193.04 cm HT: 192 cm WT: 123.2 kg BMI: 33.56 BMI: 33.2 Additional Vitals No qualifying data available. Lab Results Microbiology - Current Encounter No qualifying data available. Diagnostic Results Diagnostic Radiology XR OR Spine Lumbar Crossfire 02/24/25 19:05:43 This report was not created by a radiologist, physician, or advanced practice provider. The details of this surgical case can be found within the surgical operative note. The surgical Operative note is located within the patient?s chart. Signed By: Joyce Lucero Physical Exam Motor 5/5 except 0/5 right TA and 2-3/5 left TA, baseline foot drops NVI Dressing C/D/I Medications Inpatient allopurinol, 300 mg, Oral, Daily amLODIPine, 5 mg, Oral, BID Ativan, 1 mg= 0.5 mL, IV Push, q6hr, PRN Colace, 100 mg, Oral, BID cyclobenzaprine, 10 mg, Oral, q8hr, PRN Detrol LA, 4 mg, Oral, HS (at bedtime) Dulcolax Laxative, 10 mg, Oral, Daily, PRN Dulcolax Laxative, 10 mg= 1 supp, Rectal, Daily, PRN Fleet Enema 7 g-19 g rectal enema, 133 mL, Rectal, Daily, PRN hydroCHLOROthiazide, 25 mg, Oral, Daily Klor-Con M20, 20 mEq, Oral, Daily Lipitor, 40 mg, Oral, HS (at bedtime) losartan, 25 mg, Oral, Daily MiraLax, 17 g= 1 EA, Oral, Daily morphine, 2 mg= 1 mL, IV Push, q3hr, PRN Myrbetriq, 50 mg, Oral, Daily NS 1,000 mL, 1000 mL, IV Percocet 5/325 oral tablet, 1 tabs, Oral, q4hr, PRN Tylenol, 650 mg, Oral, [id number] Times, PRN Zofran, 4 mg= 2 mL, IV Push, q4hr, PRN Assessment/Plan POD#2 s/p L2-5 decompression and fusion with durotomy Plan: 1. Continue drains 2. Pain controlled 3. Activity - as tolerated 4. Labs pending 5. PT/OT today 6. Discharge pending Electronically signed by ___ Kirk Weber PA-C 02/26/25 07:03 EDT Normal [facility] Progress Note-Nurseon 2024 Progress Note-Nurse Patient refused to ambulate to the chair for breakfast. Electronically signed by ___ Anupama Pacheco 02/26/25 16:26 EDT Normal [facility] Orthopedic Progress Noteon 0 02-25-2025 Orthopedic Progress Note Subjective POD #1 Patient laying flat in bed. Doing ok. Denies headache. Denies leg pain. Chronic bilateral foot drops, right worse than left. No BM. Denies N/V Objective Vitals & Measurements T: 36.6 ?C (Oral) HR: 81 (Monitored) RR: 18 BP: 122/72 SpO2: 92% HT: 193.04 cm HT: 192 cm WT: 120.7 kg BMI: 33.56 BMI: 33.2 Additional Vitals No qualifying data available. Lab Results Microbiology - Current Encounter No qualifying data available. Physical Exam Motor 5/5 except 0/5 right TA and 2-3/5 left TA NVI Dressing C/D/I Medications Inpatient allopurinol, 300 mg, Oral, Daily amLODIPine, 5 mg, Oral, BID Ativan, 1 mg= 0.5 mL, IV Push, q6hr, PRN ceFAZolin, 1 g= 50 mL, IV Piggyback, q8hr Colace, 100 mg, Oral, BID cyclobenzaprine, 10 mg, Oral, q8hr, PRN Detrol LA, 4 mg, Oral, HS (at bedtime) Dulcolax Laxative, 10 mg, Oral, Daily, PRN Dulcolax Laxative, 10 mg= 1 supp, Rectal, Daily, PRN Fleet Enema 7 g-19 g rectal enema, 133 mL, Rectal, Daily, PRN hydroCHLOROthiazide, 25 mg, Oral, Daily Klor-Con M20, 20 mEq, Oral, Daily Lipitor, 40 mg, Oral, HS (at bedtime) losartan, 25 mg, Oral, Daily MiraLax, 17 g= 1 EA, Oral, Daily morphine, 2 mg= 1 mL, IV Push, q3hr, PRN Myrbetriq, 50 mg, Oral, Daily NS 1,000 mL, 1000 mL, IV Percocet 5/325 oral tablet, 1 tabs, Oral, q4hr, PRN Zofran, 4 mg= 2 mL, IV Push, q4hr, PRN Assessment/Plan POD#1 s/p L2-5 decompression and fusion with durotomy Plan: 1. Continue drains 2. Pain controlled 3. Activity - Ok to raise head of bed 15 degrees every 2-3 hours until sitting up to 90 degrees. If patient develops headache then lay flat for rest of the day. 4. Labs pending 5. Discharge pending Electronically signed by ___ Kirk Weber PA-C 02/25/25 06:54 EDT Normal [facility] XR OR Spine Lumbar Crossfire on 02-25-2025 XR OR Spine Lumbar Crossfire This report was not created by a radiologist, physician, or advanced practice provider. The details of this surgical case can be found within the surgical operative note. The surgical Operative note is located within the patient's chart. Final Signed by: Joyce Lucero Signed (Electronic Signature): 02/25/2025 9:16 am Transcribed DT/TM: 02/25/2025 9:16 (If Report Is Signed, Electronically Signed in Other Vendor System) Normal [facility] ECG 12 Leadon 01-28-2025 Normal sinus rhythm, nonspecific ST and T changes, borderline ECG [facility] Work Phone: Activated partial thrombopla stin time (aPTT) in platelet poor plasma by coagulation aon 01-26-2025 aPTT Coag (PPP) [Time] Activated partial thromboplastin time (aPTT) in platelet poor plasma by coagulation a 22.3-36.2 [facility] Basophils Auto (Bld) [#/Vol] on 01-26-2025 Basophils (Bld) [#/Vol] Automated basophil count 0.0-0.1 [facility] Basophils/100 WBC Auto (Bld) on 01-26-2025 Basophils/100 WBC (Bld) Automated basophil % 0.2-2.0 [facility] Eosinophils/100 WBC Auto (Bl d)on 01-26-2025 Eosinophils/100 WBC (Bld) Automated eosinophil % 0.9-7.0 [facility] Erythrocyte distribution wid th Auto (RBC) [Ratio]on 01-26-2025 Erythrocyte distribution width (RBC) [Ratio] Erythrocyte distribution width [Ratio] by Automated count 11.0-15.0 [facility] Estimated glomerular filtrat ion rate (GFR) non- Americanon 01-26-2025 GFR/1.73 sq M.predicted among non-blacks MDRD (S/P/Bld) [Vol rate/Area] Estimated glomerular filtration rate (GFR) non- >=60 mL/min/1.73m 2 [facility] Hematocrit Auto (Bld) [Volum e fraction]on 01-26-2025 Hematocrit (Bld) [Volume fraction] Hematocrit [Volume Fraction] of Blood by Automated count 42.0-54.0 [facility] Hemoglobin [Mass/volume] in Bloodon 01-26-2025 Hemoglobin (Bld) [Mass/Vol] Hemoglobin [Mass/volume] in Blood 14.0-18.0 [facility] INR in Platelet poor plasma by Coagulation assayon 01-26-2025 INR Coag (PPP) [Relative time] INR in Platelet poor plasma by Coagulation assay [facility] Comment on above: DESIRED INR:2.0-3.0 CONDITIONS NOT LISTED BELOW2.5-3.5 FOR PROSTHETIC HEART VALVE REPLACEMENT2.5-3.5 RECURRENT THROMBOSIS Laboratory - Chemistry and C hemistry - challengeon 01-26-2025 Calcium [Mass/Vol] 9.2 mg/dL 8.5-10.1 [facility] Chloride [Moles/Vol] 100 mmol/L 98-107 [facility] CO2 [Moles/Vol] 29.9 mmol/L 21.0-32.0 [facility] Creatinine [Mass/Vol] 0.94 mg/dL 0.70-1.30 [facility] GFR/1.73 sq M.predicted MDRD (S/P/Bld) [Vol rate/Area] mL/min/{1.73_m2} >=60 mL/min/1.73m 2 [facility] Glucose [Mass/Vol] 129 mg/dL High 74-106 [facility] Potassium [Moles/Vol] 4.2 mmol/L 3.5-5.1 [facility] Sodium [Moles/Vol] 138 mmol/L 136-145 [facility] Urea nitrogen [Mass/Vol] 19.0 mg/dL High 7.0-18.0 [facility] Urea nitrogen/Creatinine [Mass ratio] 20.2 mg/mg [facility] Laboratory - Hematology and Cell countson 01-26-2025 Immature granulocytes/100 WBC (Bld) 0.8 % High 0.0-0.5 [facility] Leukocytes [#/volume] correc yina for nucleated erythrocytes in Blood by Automated counon 01-26-2025 WBC corrected for nucl RBC Auto (Bld) [#/Vol] Leukocytes [#/volume] corrected for nucleated erythrocytes in Blood by Automated coun 4.0-11.0 [facility] Lymphocytes Auto (Bld) [#/Vo l]on 01-26-2025 Lymphocytes (Bld) [#/Vol] Lymphocytes [#/volume] in Blood by Automated count 1.2-3.8 [facility] Lymphocytes/100 WBC Auto (Bl d)on 01-26-2025 Lymphocytes/100 WBC (Bld) Lymphocytes/100 leukocytes in Blood by Automated count Low 20.5-60.0 [facility] MCH Auto (RBC) [Entitic mass ]on 01-26-2025 MCH (RBC) [Entitic mass] MCH [Entitic mass] by Automated count 25.9-34.0 [facility] MCHC Auto (RBC) [Mass/Vol]on 01-26-2025 MCHC (RBC) [Mass/Vol] MCHC [Mass/volume] by Automated count 29.9-35.2 [facility] MCV Auto (RBC) [Entitic vol] on 01-26-2025 MCV (RBC) [Entitic vol] MCV [Entitic volume] by Automated count 80.0-94.0 [facility] Monocytes Auto (Bld) [#/Vol] on 01-26-2025 Monocytes (Bld) [#/Vol] Automated blood monocyte count 0.3-0.8 [facility] Monocytes/100 WBC Auto (Bld) on 01-26-2025 Monocytes/100 WBC (Bld) Automated monocyte % 1.7-12.0 [facility] Neutrophils Auto (Bld) [#/Vo l]on 01-26-2025 Neutrophils (Bld) [#/Vol] Neutrophils [#/volume] in Blood by Automated count 1.4-6.5 [facility] Neutrophils/100 WBC Auto (Bl d)on 01-26-2025 Neutrophils/100 WBC (Bld) Automated neutrophil % 43.0-75.0 [facility] No Panel Informationon 01-26 Eosinophils # (Auto) 0.1 10 3/uL 0.0-0.7 [facility] Immature Granulocyte # (Auto) 0.06 10 3/uL High 0.00-0.03 [facility] Platelet mean volume Auto (B ld) [Entitic vol]on 01-26-2025 Platelet mean volume (Bld) [Entitic vol] Platelet mean volume [Entitic volume] in Blood by Automated count 9.5-13.5 [facility] Platelets Auto (Bld) [#/Vol] on 01-26-2025 Platelets (Bld) [#/Vol] Platelets [#/volume] in Blood by Automated count 150-450 [facility] Prothrombin time (PT)on 01-04 PT Coag (PPP) [Time] Prothrombin time (PT) 9.0- 11.6 [facility] RBC Auto (Bld) [#/Vol]on RBC (Bld) [#/Vol] Erythrocytes [#/volu me] in Blood by Automated count Low 4.70-6.10 [facility] Serum or plasma anion gap de terminationon 01-26-2025 Anion gap [Moles/Vol] Serum or plasma anion gap determination [facility] XR Knee - right 1 or 2 [...] dislocation. Impression: Unremarkable right total knee arthroplasty. On license of [facility] Radiology Study observation (narrative) [facility] Main OR Intraoperative Recor don 08-19-2024 Main OR Intraoperative Record Main OR Intraoperative Record IntraOp Document Type FT Summary Primary Physician: Bert Huang DO Finalized Date/Time: 08/19/24 10:42:12 Pt. Name: RIDGE ROLAND D.O.B./Sex: 1945 Male Med Rec #: [id number] Physician: Bert Huang DO Financial #: [id number] Pt. Type: P Room/Bed: / Admit/Disch: 08/19/24 06:54:46 - Institution: Case Times FTPM Entry 1 Patient Times In Room 08/19/24 08:11:00 Out Room 08/19/24 10:05:00 Procedure Times Start 08/19/24 08:36:00 Stop 08/19/24 10:00:00 Anesthesia Times Start 08/19/24 08:11:00 Stop 08/19/24 10:05:00 Last Modified By: Robin JENNINGS, Tomasa Davidson 08/19/24 10:05:45 Case Attendance FTPM Entry 1 Entry 2 Entry 3 Case Attendee Cari MCGARRY, Bert Villarreal DO RT, Bobo Chen Role Performed Anesthesiologist Surgeon - Primary Hospital Supervisor Steam Plant Operator Time In 08/19/24 08:11:00 08/19/24 08:11:00 [...] Tomasa Davidson Role Performed Scrub - Primary Classification Inspector - Primary Time In 08/19/24 08:11:00 08/19/24 08:11:00 Time Out 08/19/24 10:05:00 08/19/24 10:05:00 Procedure SPINAL CORD STIMULATOR SPINAL CORD STIMULATOR IMPLANT(.) IMPLANT(.) Comments Last Modified By: Robin JENNINGS, Tomasa Kelly RN, Tomasa Davidson 08/19/24 10:05:45 08/19/24 10:05:45 Perioperative Protocols FTPM [...] Roldan DO, Bradford A., Odalis RT, Bobo P, Cari MCGARRY, Liliana Hagen Time Out Complete 08/19/24 08:30:00 Outcomes Met? [...] and tissue Entry 1 Skin Integrity Intact, [place], Warm, & Skin Abnormality No Dry Outcomes [...] Yes Left (more content not included)... Normal [facility] Main OR Preoperative Recordo n 08-19-2024 Main OR Preoperative Record Main OR Preoperative Record Holding Area Document Type FTPM Summary Primary Physician: Bert Huang DO Finalized Date/Time: 08/19/24 07:57:29 Pt. Name: RIDGE ROLAND/Sex: 1945 Male Med Rec #: [id number] Physician: Bert Huang DO Financial #: [id number] Pt. 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, lumbar stenosis with neurogenic claudication M48.062, G84.9 chronic pain syndrome Procedure: Implantation percutaneous spinal cord stimulator neuro electrodes x 2, implantation of spinal cord stimulator neuroreceiver/pulse generator, complex analysis of neurostimulator Anesthesia: MAC Complications: None Steam Plant Operator: research assistant provided Implanted devices: -Neuroreceiver/pulse generator: Vidyo wavewriter alpha 16 -Neuroelectrodes: two avista 50cm [...] the epidural space with confirmation using glass vlrh-op-phtictblel syringe and lead was threaded at T11/12 [...] wound was irrigated with sterile saline. The EXFO fiction and nonfiction writer prose alpha 16 pulse generator kit was then [...] pocket. Then with the help of the research assistant both wounds were closed in a stepwise [...] antibiotics were provided. Correction to above: No captain's assistant was utilized during this case. Closure was performed by myself. [facility] Comment on above: Result Comment: Elec tronically Signed By: Bert Huang DO\Date and Time Signed: 08/19/24 10:38 EDT Proceduralon [...] list: All Problems Anticoagulated / SNOMED CT 217230127 / Confirmed At risk for falls / SNOMED CT 066997335 / Possible BMI 31.0-31.9,adult / SNOMED CT 051470825 / Confirmed BPH with urinary obstruction / SNOMED CT 9703049755 / Confirmed Chronic prostatitis / SNOMED CT 39377698 / Confirmed Dysuria / SNOMED CT 62211014 / Confirmed ED (erectile dysfunction) / SNOMED CT 9120855068 / Confirmed Elevated PSA / SNOMED CT 5326601404 / Confirmed Gross hematuria / SNOMED CT 035705635 / Confirmed Hernia, inguinal, right / SNOMED CT 615882907 / Confirmed Hypercholesterolemia / SNOMED CT 91576772 / Confirmed Impotence / SNOMED CT 7648586142 / Confirmed Incomplete bladder emptying / SNOMED CT 133423060 / Confirmed Incontinence without sensory awareness / SNOMED CT 5228121944 / Confirmed Leaking of urine / SNOMED CT 9493637827 / Confirmed Nocturia / SNOMED CT 781043700 / Confirmed Post-void dribbling / SNOMED CT 956329591 / Confirmed Prostate cancer screening / SNOMED CT 325402358 / Confirmed Urge incontinence / SNOMED CT 457257547 / Confirmed Urinary frequency / SNOMED CT 776463579 / Confirmed Urinary incontinence / SNOMED CT 6844926468 / Confirmed Urinary retention / SNOMED CT 738866052 / Confirmed Weak urinary stream / SNOMED CT 010904560 / Confirmed Resolved: Hypertension / SNOMED CT 7352672871 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 Normal [facility] MRSA Screenon 08-14-2024 MRSA DNA [...] Locations R1: This test was performed at: [facility], [address] [place] [address], [phone] , [place], Normal [facility] Comment on above: Performed By: #### [id number] #### [facility] [address] [place] [address] Main OR Intraoperative Recor don 06-24-2024 Main OR Intraoperative Record Main OR Intraoperative Record IntraOp Document Type FTPM Summary Primary Physician: Bert Huang DO Finalized Date/Time: 06/24/24 09:11:34 Pt. Name: RIDGE ROLAND/Sex: 1945 Male Med Rec #: [id number] Physician: Bert Huang DO Financial #: [id number] Pt. Type: P Room/Bed: / Admit/Disch: 06/24/24 [...] J Role Performed Anesthesiologist Surgeon - Primary Classification Inspector - Primary Steam Plant Operator Time In 06/24/24 08:04:00 06/24/24 08:04:00 06/24/24 08:04:00 Time Out 06/24/24 09:10:00 06/24/24 09:10:00 06/24/24 09:10:00 Procedure SPINAL CORD STIMULATOR SPINAL CORD STIMULATOR SPINAL CORD STIMULATOR TRIAL(.) TRIAL(.) TRIAL(.) Comments Last Modified By: Robin JENNINGS, Tomasa Kelly RN, Tomasa Kelly RN, Tomasa Davidson 06/24/24 09:11:29 06/24/24 09:11:29 06/24/24 09:11:29 Entry 4 Entry 5 Entry 6 Case Attendee Gerry JENNINGS, Savannah Escalera Jr, DO, Gokul Shafer RT(R), Adry Role Performed Scrub - Primary Anesthesiologist of Hospital Supervisor Record Time In 06/24/24 08:04:00 06/24/24 08:04:00 06/24/24 08:04:00 Time Out 06/24/24 09:10:00 06/24/24 09:10:00 06/24/24 09:10:00 Procedure SPINAL CORD STIMULATOR SPINAL CORD STIMULATOR SPINAL CORD STIMULATOR TRIAL(.) TRIAL(.) TRIAL(.) Comments Last Modified By: Robin JENNINGS, Tomasa Kelly RN, Tomasa Kelly RN, Tomasa Davidson 06/24/24 09:11:29 06/24/24 09:11:29 06/24/24 09:11:29 Entry 7 Case Attendee Iris Sheffield Role Performed Hospital Supervisor Time In 06/24/24 08:04:00 Time Out 06/24/24 09:10:00 Procedure SPINAL CORD STIMULATOR TRIAL(.) Comments Last Modified By: Tomasa Kelly RN 06/24/24 09:11:29 General Comments: [employer] Lucretia Khan Perioperative Protocols FTPM Pre-Care Text: Implements protective [...] Antibiotic Yes Time Out Jw Lang DO, Rome Colón Participants Robin JENNINGS, Gerry Harvey RN, Jerry Roldan DO, Bradford A., Iris Sheffield, Soni MCNULTY(R), Adry Time Out Complete 06/24/24 08:12:00 Outcomes [...] and tissue Entry 1 Skin Integrity Intact, [place], Warm, & Skin Abnormality No Dry Outcomes Met? Yes Last Modified By: Tomasa Kelly RN 06/24/24 07:37:40 Post-Care Text: The patient is free from (more content not included)... Normal [facility] Main OR Preoperative Recordo n 06-24-2024 Main OR Preoperative Record Main OR Preoperative Record Holding Area Document Type FTPM Summary Primary Physician: Bert Huang DO Finalized Date/Time: 06/24/24 07:19:15 Pt. Name: RIDGE ROLAND [place]/Sex: 1945 Male Med Rec #: [id number] Physician: Bert Huang DO Financial #: [id number] Pt. Type: P Room/Bed: / Admit/Disch: 06/24/24 [...] By: Ramírez Samaniego RN 06/24/24 07:19 [facility] Operative Reporton 4 Operative Report Operative Report Diagnosis: Lumbar postlaminectomy pain syndrome, M96.1. Chronic pain syndrome G89.29. Procedure: Spinal cord stimulator trial under fluoroscopic guidance with two 16 contact Infinion leads from [employer] and 2 click anchors, 325[address]. Analyze neurostimulator complex, 83767. Anesthesia: MAC Complications: None Description: After informed [...] the epidural space with confirmation using glass knzz-qs-nvfilcerzc syringe and lead was threaded at T12/L1. [...] plan regarding her spinal cord stimulator trial. [facility] Comment on above: Result Comment: Elec [...] Locations R1: This test was performed at: [facility], [address] [place] [address], [phone] , , Normal [facility] Comment on above: Performed By: #### [id number] #### [facility] [address] [place] [address] Ambulatory Visit Summaryon 0 06-12-2024 Ambulatory Visit Summary Ambulatory Visit Summary RIDGE ROLAND John :1945 Visit Date:06/12/2024 Ambulatory Visit Instructions Your Diagnosis Incontinence without sensory awareness Incomplete bladder emptying BPH with urinary obstruction ED (erectile dysfunction) Nocturia Your Care Team Attending Physician - ALANIS WOOD PA-C Primary Care Physician - DEVANG HALL DO This Is Your Medications List Contact prescribing [...] AM EDT With: Bert Huang DO Where: [facility] Sunday 8:00 AM EDT With: Where: [facility] Sunday 8:45 AM EDT With: Stephenie Barrios PA-C Where: [facility] You Need to Schedule the Following Appointments Follow Up with ALANIS WOOD PA-C, URL When: Comments: PRN Where: [address] [place] [address] Medications What How Much When [...] Any p (more content not included)... Normal [facility] Urology Office/Clinic Noteon 06-12-2024 Urology [...] rashes or suspicious lesions Assessment/Plan saw DLS [id number] 1. 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 Patient Moderate 30-39 Min 13663 Urnls Dip Stick Auto w/o Microscopy POC 69544 2. Incomplete bladder emptying (R39.14: Feeling of incomplete bladder emptying) PVR (cc): 12/27/21 - 94 05/30/22 - 225 (after botox) 08/31/22 - 56 12/14/23 - (random scan) *no scan at visit today-no bladder scanner IO* Ordered: E&M of Est. Patient Moderate 30-39 Min 88110 Urnls Dip Stick Auto w/o Microscopy POC 52394 3. BPH with urinary obstruction (N40.1: Benign prostatic hyperplasia with lower urinary tract symptoms) S/P TURP 04/28/20 by DLS S/p Cysto w/ UD 12/05/21 and 12/02/20 by NKIOLAS. IPSS 28 (severe sxs). Not currently taking any BPH medications. UA today shows trace-intact blood, negative for nitrites and leuks. see #1. Ordered: E&M of Est. Patient Moderate 30-39 Min 10088 Urnls Dip Stick Auto w/o Microscopy POC 69479 4. ED (erectile dysfunction) (N52.9: Male erectile [...] few wee (more content not included)... [facility] Comment on above: Result Comment: Elec tronically Signed By: ALANIS WOOD PA-C\.br\Date and Time Signed: 06/12/24 11:06 EDT\.br\Electronically Co-Signed By: Radha Ohara\.br\Date and Time Co-Signed: 06/12/24 10:32 EDT Cholesterol in LDL Calc [Mas s/Vol]on 04-29-2024 Cholesterol in LDL [Mass/Vol] 59.0 mg/dL [facility] Comment on above: <100 mg/dl [id number] 0-129 mg/dl NEAR OR ABOVE [id number] mg/dl BORDERLINE [id number] mg/dl HIGH>190 mg/dl VERY HIGH Cholesterol in VLDL Calc [Ma ss/Vol]on 04-29-2024 Cholesterol in VLDL [Mass/Vol] 11.4 mg/dL [facility] Estimated glomerular filtrat ion rate (GFR) non- Americanon 04-29-2024 GFR/1.73 sq M.predicted among non-blacks MDRD (S/P/Bld) [Vol rate/Area] mL/min/{1.73_m2} >=60 [facility] Globulin Calc (S) [Mass/Vol] on 04-29-2024 Globulin (S) [Mass/Vol] 3.4 g/dL [facility] Laboratory - Chemistry and C hemistry - challengeon 04-29-2024 Albumin [Mass/Vol] 3.8 g/dL 3.4-5.0 [facility] ALP [Catalytic activity/Vol] 89 U/L 46-116 [facility] ALT [Catalytic activity/Vol] 24 U/L 16-63 [facility] AST [Catalytic activity/Vol] 14 U/L Low 15-37 [facility] Bilirubin [Mass/Vol] 0.9 mg/dL 0.2-1.0 [facility] Calcium [Mass/Vol] 9.5 mg/dL 8.5-10.1 [facility] Chloride [Moles/Vol] 99 mmol/L 98-107 [facility] Cholesterol [Mass/Vol] 138 mg/dL <=200 [facility] Cholesterol in HDL [Mass/Vol] 68 mg/dL High 40-60 [facility] Comment on above: > or =60 mg/dl - LOW CARDIOVASCULAR RISK<40 mg/dl - HIGH CARDIOVASCULAR RISK CO2 [Moles/Vol] 27.8 mmol/L 21.0-32.0 [facility] Creatinine [Mass/Vol] 0.82 mg/dL 0.70-1.30 [facility] GFR/1.73 sq M.predicted MDRD (S/P/Bld) [Vol rate/Area] mL/min/{1.73_m2} >=60 [facility] Glucose [Mass/Vol] 109 mg/dL High 74-106 [facility] Potassium [Moles/Vol] 3.8 mmol/L 3.5-5.1 [facility] Protein [Mass/Vol] 7.2 g/dL 6.4-8.2 [facility] Sodium [Moles/Vol] 137 mmol/L 136-145 [facility] Triglyceride [Mass/Vol] 57 mg/dL <=150 [facility] Urea nitrogen [Mass/Vol] 18.0 mg/dL 7.0-18.0 [facility] Urea nitrogen/Creatinine [Mass ratio] 22.0 mg/mg [facility] Serum or plasma albumin/glob ulin mass ratioon 04-29-2024 Albumin/Globulin [Mass ratio] 1.1 {ratio} [facility] Serum or plasma anion gap de terminationon 04-29-2024 Anion gap [Moles/Vol] 14.0 mmol/L [facility] Serum or plasma total choles terol/high density lipoprotein (HDL) cholesterol mass seema 04-29-2024 Cholesterol.total/Ch olesterol in HDL [Mass ratio] 2.0 {ratio} [facility] Comment on above: 3.3 - 4.4 LOW RISK4. 4 - 7.1 AVERAGE RISK7.1 - 11.0 MODERATE RISK>11.0 HIGH RISK Consent for Treatmenton 05 Consent for Treatment [id number]#1.00T IFF Normal [facility] Consultation Noteon 03-14-20 Consultation Note [...] day(s), # 60 cap(s), Refills(s) 1, Pharmacy: [facility]/pharmacy #[id number], 193, cm, 01/25/24 13:38:00 EDT, Height/Length Dosing, 102.4, kg, 01/25/24 13:38:00 EDT, Weight Dosing Viagra 50 mg Tab: See Instructions, 1-2 tab(s) po 1 hr before sexual acitivity. do not exceed 2 tabs in 24 hrs., # 15 tab(s), Refills(s) 3, Pharmacy: [facility]/pharmacy #[id number], 193, cm, 08/31/22 9:11:00 EDT, Height/Length Dosing, 114.5, kg, 08/31/22 9:11:00 EDT, Weight Dosing... amitriptyline 10 mg Tab: 10 mg = 1 tab(s), Oral, Once a day (at bedtime), X 30 day(s), # 30 tab(s), Refills(s) 1, [id number], 193, cm, 03/14/24 9:55:00 EDT, Height/Length Dosing, 104.5, kg, 03/14/24 9:55:00 EDT, Weight Dosing pregabalin 25 mg Cap: 25 mg = 1 cap(s), Oral, BID, # 60 cap(s), Refills(s) 2, Pharmacy: [facility]/pharmacy #[id number], 193, cm, 11/09/23 11:29:00 EST, [...] list: All Problems Hypercholesterolemia / SNOMED CT 43633223 / Confirmed Hernia, inguinal, right / SNOMED CT 555868646 / Confirmed BPH with urinary obstruction / SNOMED CT 5304644343 / Confirmed Elevated PSA / SNOMED CT 1060116976 / Confirmed Impotence / SNOMED CT 2801704365 / Confirmed Urinary frequency / SNOMED CT 849828135 / Confirmed Nocturia / SNOMED CT 894274759 / Confirmed Weak urinary stream / SNOMED CT 574047160 / Confirmed Gross hematuria / SNOMED CT 632379746 / Confirmed Anticoagulated / SNOMED CT 447429862 / Confirmed Urge incontinence / SNOMED CT 341520099 / Confirmed Chronic prostatitis / SNOMED CT 79407542 / Confirmed Dysuria / SNOMED CT 20837200 / Confirmed Urinary retention / SNOMED CT 738224949 / Confirmed BMI 31.0-31.9,adult / SNOMED CT 601934444 / Confirmed Incomplete bladder emptying / SNOMED CT 981587760 / Confirmed Post-void dribbling / SNOMED CT 670377700 / Confirmed Incontinence without sensory awareness / SNOMED CT 6877395540 / Confirmed At risk for falls / SNOMED CT 867672907 / Possible ED (erectile dysfunction) / SNOMED CT 3612994838 / Confirmed Leaking of urine / SNOMED CT 5494568570 / Confirmed Urinary incontinence / SNOMED CT 0421605652 / Confirmed Prostate cancer screening / SNOMED CT 818330342 / Confirmed Resolved: Hypertension / SNOMED CT 2945000508 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 5/5 strength Integumentary: Warm, Dry, [place]. Neurologic: Alert, Oriented. Psy (more content not included)... [facility] Comment on above: Result Comment: Elec tronically Signed By: Sophie SHIPMAN, Stephenie\.br\Date and Time Signed: 03/14/24 10:17 EDT Office/Clinic Note-Physician on 03-14-2024 Office/Clinic Note-Physician [id number]#1.00T IFF Normal [facility] Patient Correspondenceon Patient Correspondence [id number]#1.00T IFF Normal [facility] Patient Correspondence [id number]#1.00T IFF [facility] Patient History Officeon Patient History Office [id number]#1.00T IFF [facility] Consent for Treatmenton 01-04 Consent for Treatment [id number]#1.00 TIFF Normal [facility] Consultation Noteon 01-25-20 Consultation Note [...] day(s), # 60 cap(s), Refills(s) 1, [id number], 193, cm, 01/25/24 13:38:00 EDT, Height/Length Dosing, 102.4, kg, 01/25/24 13:38:00 EDT, Weight Dosing Viagra 50 mg Tab: See Instructions, 1-2 tab(s) po 1 hr before sexual acitivity. do not exceed 2 tabs in 24 hrs., # 15 tab(s), Refills(s) 3, [id number], 193, cm, 08/31/22 9:11:00 EDT, Height/Length Dosing, 114.5, kg, 08/31/22 9:11:00 EDT, Weight Dosing... pregabalin 25 mg Cap: 25 mg = 1 cap(s), Oral, BID, # 60 cap(s), Refills(s) 2, [id number], 193, cm, 11/09/23 11:29:00 EST, Height/Length [...] list: All Problems Hypercholesterolemia / SNOMED CT 06202842 / Confirmed Hernia, inguinal, right / SNOMED CT 686266636 / Confirmed BPH with urinary obstruction / SNOMED CT 8952465714 / Confirmed Elevated PSA / SNOMED CT 8680172767 / Confirmed Impotence / SNOMED CT 7625106807 / Confirmed Urinary frequency / SNOMED CT 937706093 / Confirmed Nocturia / SNOMED CT 320354382 / Confirmed Weak urinary stream / SNOMED CT 273909512 / Confirmed Gross hematuria / SNOMED CT 131026429 / Confirmed Anticoagulated / SNOMED CT 003856894 / Confirmed Urge incontinence / SNOMED CT 066881219 / Confirmed Chronic prostatitis / SNOMED CT 55958608 / Confirmed Dysuria / SNOMED CT 79747716 / Confirmed Urinary retention / SNOMED CT 535028593 / Confirmed BMI 31.0-31.9,adult / SNOMED CT 124303081 / Confirmed Incomplete bladder emptying / SNOMED CT 584649507 / Confirmed Post-void dribbling / SNOMED CT 412141840 / Confirmed Incontinence without sensory awareness / SNOMED CT 1365977071 / Confirmed At risk for falls / SNOMED CT 130063472 / Possible ED (erectile dysfunction) / SNOMED CT 8445516113 / Confirmed Leaking of urine / SNOMED CT 6324534632 / Confirmed Urinary incontinence / SNOMED CT 7611382902 / Confirmed Prostate cancer screening / SNOMED CT 741141136 / Confirmed Resolved: Hypertension / SNOMED CT 2521506339 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 [facility] Comment on above: Result Comment: Elec tronically Signed By: Sophie SHIPMAN, Stephenie\.br\Date and Time Signed: 01/25/24 13:48 EDT Office/Clinic Note-Physician on 01-25-2024 Office/Clinic Note-Physician [id number]#1.00 TIFF Normal [facility] Patient Correspondenceon Patient Correspondence [id number]#1.00 TIFF Normal [facility] Patient Correspondence [id number]#1.00 TIFF Normal [facility] Patient Correspondence [id number]#1.00 TIFF Normal [facility] Patient History Officeon Patient History Office [id number]#1.00 TIFF Normal [facility] Consent for Procedure/Surger yon 01-09-2024 Consent for Procedure/Surgery [id number]#1.00T IFF Normal [facility] Consent for Treatmenton Consent for Treatment [id number]#1.00T IFF Normal [facility] Discharge Instructionson Discharge Instructions [id number]#1.00T IFF Normal [facility] IntraOperative Documentson 0 01-09-2024 IntraOperative Documents [id number]#1.00T IFF Normal [facility] Main OR Intraoperative Recor don 01-09-2024 Main OR Intraoperative Record IntraOp Document Type FTPM Summary Primary Physician: Bert Huang DO Finalized Date/Time: 01/09/24 11:31:11 Pt. Name: RIDGE ROLAND Valencia/Sex: 1945 Male Med Rec #: [id number] Physician: Bert Huang DO Financial #: [id number] Pt. Type: P Room/Bed: / Admit/Disch: 01/09/24 [...] Tomasa Davidson Role Performed Surgeon - Primary Classification Inspector - Primary Scrub - Primary Time In 01/09/24 11:25:00 01/09/24 11:25:00 01/09/24 11:25:00 Time Out 01/09/24 11:31:00 01/09/24 11:31:00 01/09/24 11:31:00 Procedure SACROILIAC JOINT SACROILIAC JOINT SACROILIAC JOINT INJECTION(Bilateral) INJECTION(Bilateral) INJECTION(Bilateral) Comments Last Modified By: Gerry JENNINGS, Savannah Garrett RN, Savannah Tsai RN 01/09/24 11:31:02 01/09/24 11:31:02 01/09/24 11:31:02 Entry 4 Case Attendee Scott Craig Role Performed Hospital Supervisor Time In 01/09/24 11:25:00 Time Out 01/09/24 [...] and tissue Entry 1 Skin Integrity Intact, [place], Warm, and Skin Abnormality No Dry Outcomes [...] Met? Y (more content not included)... Normal [facility] Main OR Preoperative Recordo n 01-09-2024 Main OR Preoperative Record Holding Area Document Type FTPM Summary Primary Physician: Bert Huang DO Finalized Date/Time: 01/09/24 11:01:07 Pt. Name: RIDGE ROLAND/Sex: 1945 Male Med Rec #: [id number] Physician: Bert Huang DO Financial #: [id number] Pt. Type: P Room/Bed: / Admit/Disch: 01/09/24 [...] By: Anupama Huggins RN 01/09/24 11:01 Normal [facility] Automated epithelial cells c ount in urine sediment (number/area)on 12-24-2023 Epithelial cells Auto (Urine sed) [#/Area] FEW #/LPF NONE/RARE [facility] Automated leukocytes count i n urine sediment (number/area)on 12-24-2023 WBC Auto (Urine sed) [#/Area] NONE SEEN #/HPF 0-2 [facility] Automated urine specific gra vity by refractometryon 12-24-2023 Specific gravity Refractometry automated (U) [Rel density] 1.020 1.005-1.025 [facility] Basophils Auto (Bld) [#/Vol] on 12-24-2023 Basophils (Bld) [#/Vol] 0.0 10 3/uL 0.0-0.1 [facility] Basophils/100 WBC Auto (Bld) on 12-24-2023 Basophils/100 WBC (Bld) 0.4 % 0.2-2.0 [facility] Bilirubin Auto test strip (U ) [Mass/Vol]on 12-24-2023 Bilirubin (U) [Mass/Vol] Negative NEGATIVE [facility] Color Auto (U)on 12-24-2023 Color (U) YELLOW YELLOW [facility] Eosinophils/100 WBC Auto (Bl d)on 12-24-2023 Eosinophils/100 WBC (Bld) 0.9 % 0.9-7.0 [facility] Erythrocyte distribution wid th Auto (RBC) [Ratio]on 12-24-2023 Erythrocyte distribution width (RBC) [Ratio] 13.3 % 11.0-15.0 [facility] Estimated glomerular filtrat ion rate (GFR) non- Americanon 12-24-2023 GFR/1.73 sq M.predicted among non-blacks MDRD (S/P/Bld) [Vol rate/Area] mL/min/{1.73_m2} >=60 [facility] Hematocrit Auto (Bld) [Volum e fraction]on 12-24-2023 Hematocrit (Bld) [Volume fraction] 45.1 % 42.0-54.0 [facility] Hemoglobin [Mass/volume] in Bloodon 12-24-2023 Hemoglobin (Bld) [Mass/Vol] 15.3 g/dL 14.0-18.0 [facility] Ketones Auto test strip (U) [Mass/Vol]on 12-24-2023 Ketones (U) [Mass/Vol] Negative NEGATIVE [facility] Laboratory - Chemistry and C hemistry - challengeon 12-24-2023 Calcium [Mass/Vol] 9.1 mg/dL 8.5-10.1 [facility] Chloride [Moles/Vol] 102 mmol/L 98-107 [facility] CO2 [Moles/Vol] 25.5 mmol/L 21.0-32.0 [facility] Creatinine [Mass/Vol] 0.73 mg/dL 0.70-1.30 [facility] GFR/1.73 sq M.predicted MDRD (S/P/Bld) [Vol rate/Area] mL/min/{1.73_m2} >=60 [facility] Glucose [Mass/Vol] 113 mg/dL 74-106 [facility] Potassium [Moles/Vol] 3.8 mmol/L 3.5-5.1 [facility] Sodium [Moles/Vol] 138 mmol/L 136-145 [facility] Urea nitrogen [Mass/Vol] 13.0 mg/dL 7.0-18.0 [facility] Urea nitrogen/Creatinine [Mass ratio] 17.8 mg/mg [facility] Laboratory - Hematology and Cell countson 12-24-2023 Immature granulocytes/100 WBC (Bld) 0.6 % 0.0-0.5 [facility] Leukocytes [#/volume] correc yina for nucleated erythrocytes in Blood by Automated counon 12-24-2023 WBC corrected for nucl RBC Auto (Bld) [#/Vol] 9.5 10 3/uL 4.0-11.0 [facility] Lymphocytes Auto (Bld) [#/Vo l]on 12-24-2023 Lymphocytes (Bld) [#/Vol] 1.1 10 3/uL 1.2-3.8 [facility] Lymphocytes/100 WBC Auto (Bl d)on 12-24-2023 Lymphocytes/100 WBC (Bld) 11.5 % 20.5-60.0 [facility] MCH Auto (RBC) [Entitic mass ]on 12-24-2023 MCH (RBC) [Entitic mass] 31.2 pg 25.9-34.0 [facility] MCHC Auto (RBC) [Mass/Vol]on 12-24-2023 MCHC (RBC) [Mass/Vol] 33.9 g/dL 29.9-35.2 [facility] MCV Auto (RBC) [Entitic vol] on 12-24-2023 MCV (RBC) [Entitic vol] 92.0 fL 80.0-94.0 [facility] Monocytes Auto (Bld) [#/Vol] on 12-24-2023 Monocytes (Bld) [#/Vol] 0.7 10 3/uL 0.3-0.8 [facility] Monocytes/100 WBC Auto (Bld) on 12-24-2023 Monocytes/100 WBC (Bld) 7.7 % 1.7-12.0 [facility] Mucus LM Ql (Urine sed)on Mucus Ql (Urine sed) SMALL NONE SEEN [facility] Neutrophils Auto (Bld) [#/Vo l]on 12-24-2023 Neutrophils (Bld) [#/Vol] 7.5 10 3/uL 1.4-6.5 [facility] Neutrophils/100 WBC Auto (Bl d)on 12-24-2023 Neutrophils/100 WBC (Bld) 78.9 % 43.0-75.0 [facility] No Panel Informationon 12-24 Eosinophils # (Auto) 0.1 10 3/uL 0.0-0.7 [facility] Immature Granulocyte # (Auto) 0.06 10 3/uL 0.00-0.03 [facility] Platelet mean volume Auto (B ld) [Entitic vol]on 12-24-2023 Platelet mean volume (Bld) [Entitic vol] 10.7 fL 9.5-13.5 [facility] Platelets Auto (Bld) [#/Vol] on 12-24-2023 Platelets (Bld) [#/Vol] 197 10 3/uL 150-450 [facility] Protein Auto test strip (U) [Mass/Vol]on 12-24-2023 Protein (U) [Mass/Vol] Negative NEG/TRACE [facility] RBC Auto (Bld) [#/Vol]on RBC (Bld) [#/Vol] 4.90 10 6/uL 4.70-6.10 [facility] Serum or plasma anion gap de terminationon 12-24-2023 Anion gap [Moles/Vol] 14.3 mmol/L [facility] Specific gravity Auto test s trip (U) [Rel density]on 12-24-2023 Specific gravity (U) [Rel density] CLEAR CLEAR [facility] Urine bacteria detection by automated methodon 12-24-2023 Bacteria Auto Ql (U) NONE SEEN #/HPF NONE SEEN [facility] Urine glucose measurement by test strip (mass/volume)on 12-24-2023 Glucose Test strip (U) [Mass/Vol] Negative NEGATIVE [facility] Urine hemoglobin detection b y automated test stripon 12-24-2023 Hemoglobin Auto test strip Ql (U) Negative NEGATIVE [facility] Urine nitrite detection by a utomated test stripon 12-24-2023 Nitrite Auto test strip Ql (U) Negative NEGATIVE [facility] Urine sediment leukocyte cou nt by microscopy (number/high power field)on 12-24-2023 WBC LM.HPF (Urine sed) [#/Area] NONE SEEN #/HPF NONE SEEN [facility] Urobilinogen Auto test strip (U) [Mass/Vol]on 12-24-2023 Urobilinogen Qn (U) 0.2 {Kathia'U}/dL 0.2-1.0 [facility] pH Auto test strip (U)on pH (U) 6.5 [pH] 5.0-9.0 [facility] Patient Correspondenceon Patient Correspondence [id number]#1.00T IFF Normal [facility] Insurance Correspondence Off iceon 12-17-2023 Insurance Correspondence Office [id number]#2.00 TIFF Normal [facility] Patient Educationon 12-14-19 Patient Education [...] ? For women, using a medical assistant dermatology to prevent urine leaks. This is a [...] urine. ? (more content not included)... Normal [facility] Urology Office/Clinic Noteon 12-14-2023 Urology [...] Urology [address], [place] [phone]- [phone] Additional Instructions: Patient Education Urinary Incontinence I, Lina Perkins, personally scribed for Dr. Xavier on 12/14/2023 11:01:00. . Documentation recorded by the doreenibeLina, accurately reflects the services(s) I performed and decisions made by me. Authenticated by Dr. Xvaier on 12/14/2023 11:03:47. Problem List/Past Medical History [...] guidance (05/01/ (more content not included)... Normal [facility] Comment on above: Result Comment: Elec tronically Signed By: Homero XAVIER MD\.br\Date and Time Signed: 12/14/23 11:03 EST\.br\Electronically Co-Signed By: Lina Perkins\.br\Date and Time Co-Signed: 12/14/23 11:01 EST Consent for Treatmenton Consent for Treatment [id number]#1.00T IFF Normal [facility] Consultation Noteon 12-10-19 Consultation Note [...] day(s), # 30 tab(s), Refills(s) 6, Pharmacy: [facility]/pharmacy #[id number], 193, cm, 05/29/23 8:59:00 EDT, Height/Length Dosing, 108.9, kg, 03/19/23 8:54:00 EDT, Weight Dosing Viagra 50 mg Tab: See Instructions, 1-2 tab(s) po 1 hr before sexual acitivity. do not exceed 2 tabs in 24 hrs., # 15 tab(s), Refills(s) 3, [id number], 193, cm, 08/31/22 9:11:00 EDT, Height/Length Dosing, 114.5, kg, 08/31/22 9:11:00 EDT, Weight Dosing... pregabalin 25 mg Cap: 25 mg = 1 cap(s), Oral, BID, # 60 cap(s), Refills(s) 2, Pharmacy: [facility]/pharmacy #[id number], 193, cm, 11/09/23 11:29:00 EST, [...] list: All Problems Hypercholesterolemia / SNOMED CT 28544887 / Confirmed Hernia, inguinal, right / SNOMED CT 165383803 / Confirmed BPH with urinary obstruction / SNOMED CT 5063411361 / Confirmed Elevated PSA / SNOMED CT 3965562625 / Confirmed Impotence / SNOMED CT 4001116622 / Confirmed Urinary frequency / SNOMED CT 014184082 / Confirmed Nocturia / SNOMED CT 696531709 / Confirmed Weak urinary stream / SNOMED CT 203394547 / Confirmed Gross hematuria / SNOMED CT 151126420 / Confirmed Anticoagulated / SNOMED CT 198747041 / Confirmed Urge incontinence / SNOMED CT 447881102 / Confirmed Chronic prostatitis / SNOMED CT 81637299 / Confirmed Dysuria / SNOMED CT 49428089 / Confirmed Urinary retention / SNOMED CT 864309144 / Confirmed BMI 31.0-31.9,adult / SNOMED CT 124971477 / Confirmed Incomplete bladder emptying / SNOMED CT 335387292 / Confirmed Post-void dribbling / SNOMED CT 101809610 / Confirmed Incontinence without sensory awareness / SNOMED CT 8658311528 / Confirmed At risk for falls / SNOMED CT 737359195 / Possible ED (erectile dysfunction) / SNOMED CT 0469184997 / Confirmed Leaking of urine / SNOMED CT 1051192762 / Confirmed Urinary incontinence / SNOMED CT 9013131528 / Confirmed Prostate cancer screening / SNOMED CT 166838770 / Confirmed Resolved: Hypertension / SNOMED CT 6757329914 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 Normal [facility] Comment on above: Result Comment: Elec tronically Signed By: Stephenie Barrios PA-C\.br\Date and Time Signed: 12/10/23 12:53 EST\.br\Electronically Co-Signed By: Bert Huang DO\.br\Date and Time Co-Signed: 12/11/23 09:21 EST Office/Clinic Note-Physician on 12-10-2023 Office/Clinic Note-Physician [id number]#1.00T IFF Normal [facility] Patient Correspondenceon Patient Correspondence [id number]#1.00T IFF Normal [facility] Patient Correspondence [id number]#1.00T IFF Normal [facility] Patient History Officeon Patient History Office [id number]#1.00T IFF Normal [facility] Consent for Treatmenton Consent for Treatment [id number]#1.00 TIFF Normal [facility] Consultation Noteon 11-09-19 Consultation Note [...] day(s), # 30 tab(s), Refills(s) 6, [id number], 193, cm, 05/29/23 8:59:00 EDT, Height/Length Dosing, 108.9, kg, 03/19/23 8:54:00 EDT, Weight Dosing Viagra 50 mg Tab: See Instructions, 1-2 tab(s) po 1 hr before sexual acitivity. do not exceed 2 tabs in 24 hrs., # 15 tab(s), Refills(s) 3, Pharmacy: [facility]/pharmacy #[id number], 193, cm, 08/31/22 9:11:00 EDT, Height/Length Dosing, 114.5, kg, 08/31/22 9:11:00 EDT, Weight Dosing... pregabalin 25 mg Cap: 25 mg = 1 cap(s), Oral, BID, # 60 cap(s), Refills(s) 2, [id number], 193, cm, 11/09/23 11:29:00 EST, Height/Length [...] list: All Problems Hypercholesterolemia / SNOMED CT 04498653 / Confirmed Hernia, inguinal, right / SNOMED CT 629013590 / Confirmed BPH with urinary obstruction / SNOMED CT 0817529435 / Confirmed Elevated PSA / SNOMED CT 4232020970 / Confirmed Impotence / SNOMED CT 6510269562 / Confirmed Urinary frequency / SNOMED CT 361445506 / Confirmed Nocturia / SNOMED CT 388882963 / Confirmed Weak urinary stream / SNOMED CT 565005672 / Confirmed Gross hematuria / SNOMED CT 884948597 / Confirmed Anticoagulated / SNOMED CT 364983616 / Confirmed Urge incontinence / SNOMED CT 151564870 / Confirmed Chronic prostatitis / SNOMED CT 05250614 / Confirmed Dysuria / SNOMED CT 17758265 / Confirmed Urinary retention / SNOMED CT 305156745 / Confirmed BMI 31.0-31.9,adult / SNOMED CT 564574603 / Confirmed Incomplete bladder emptying / SNOMED CT 945140367 / Confirmed Post-void dribbling / SNOMED CT 038491472 / Confirmed Incontinence without sensory awareness / SNOMED CT 6097269683 / Confirmed At risk for falls / SNOMED CT 387818585 / Possible ED (erectile dysfunction) / SNOMED CT 2502534161 / Confirmed Leaking of urine / SNOMED CT 9314617570 / Confirmed Urinary incontinence / SNOMED CT 4147440072 / Confirmed Prostate cancer screening / SNOMED CT 997263378 / Confirmed Resolved: Hypertension / SNOMED CT 2116581224 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 Injection sites well-healed Neurologic: Alert, Oriented. Psychiatric: Cooperative, Appropriate mood & affect. Impression and Plan Patient is a 78-year-old male with a past medical history significant for postlaminectomy syndrome, chronic pain, and lumbar spondylosis (more content not included)... Normal [facility] Comment on above: Result Comment: Elec tronically Signed By: Sophie SHIPMAN, Stephenie\.br\Date and Time Signed: 11/09/23 11:45 EST Legal Correspondence Officeo n 11-09-2023 Legal Correspondence Office [id number]#1.00 TIFF Normal [facility] Office/Clinic Note-Physician on 11-09-2023 Office/Clinic Note-Physician [id number]#1.00 TIFF Normal [facility] Patient Correspondenceon Patient Correspondence [id number]#1.00 TIFF Normal [facility] Patient Correspondence [id number]#1.00 TIFF Normal [facility] Patient Correspondence [id number]#1.00 TIFF Normal [facility] Patient Correspondence [id number]#1.00 TIFF Normal [facility] Patient History Officeon Patient History Office [id number]#1.00 TIFF [facility] Consent for Procedure/Surger yon 10-08-2023 Consent for Procedure/Surgery [id number]#1.00 TIFF Normal [facility] Consent for Treatmenton Consent for Treatment [id number]#1.00 TIFF [facility] Discharge Instructionson Discharge Instructions [id number]#1.00 TIFF Normal [facility] IntraOperative Documentson 1 12-09-2022 IntraOperative Documents [id number]#1.00 TIFF [facility]ette [facility] Main OR Intraoperative Recor don 10-08-2023 Main OR Intraoperative Record IntraOp Document Type FTPM Summary Primary Physician: Bib Sanchez MD Finalized Date/Time: 10/08/23 08:08:45 Pt. Name: RIDGE ROLAND John Sands/Sex: 1945 Male Med Rec #: [id number] Physician: Bib Sanchez MD Financial #: [id number] Pt. Type: P Room/Bed: / Admit/Disch: 10/08/23 06:48:57 - Institution: Case Times FTPM Entry 1 Patient Times In Room 10/08/23 07:54:00 Out Room 10/08/23 08:09:00 Procedure Times Start 10/08/23 07:57:00 Stop 10/08/23 08:08:00 Anesthesia Times Last Modified By: Robin JENNINGS, Tomasa Davidson 10/08/23 08:08:29 Case Attendance FTPM Entry 1 Entry 2 Entry 3 Case Attendee Bib Sanchez MD, RN, Tomasa Garrett RN, Savannah Ceballos Role Performed Surgeon - Primary Classification Inspector - Primary Scrub - Primary Time In 10/08/23 07:54:00 10/08/23 07:54:00 10/08/23 07:54:00 Time Out 10/08/23 08:09:00 10/08/23 08:09:00 10/08/23 08:09:00 Procedure LUMBAR RADIO FREQUENCY LUMBAR RADIO FREQUENCY LUMBAR RADIO FREQUENCY ABLATION(Bilateral) ABLATION(Bilateral) ABLATION(Bilateral) Comments Last Modified By: Robin JENNINGS, Tomasa Kelly RN, Tomasa Alexander RN 10/08/23 08:08:31 10/08/23 08:08:31 10/08/23 08:08:31 Entry 4 Case Attendee Adry Smyth (R) Role Performed Hospital Supervisor Time In 10/08/23 07:54:00 Time Out 10/08/23 [...] Participants Gerry JENNINGS, Laura Roldan MD, Soni Bateman(R), Adry Time Out Complete 10/08/23 07:54:00 Outcomes [...] and tissue Entry 1 Skin Integrity Intact, [place], Warm, and Skin Abnormality No Dry Outcomes [...] By Neto (more content not included)... Normal [facility] Main OR Preoperative Recordo n 10-08-2023 Main OR Preoperative Record Holding Area Document Type FTPM Summary Primary Physician: Bib Sanchez MD Finalized Date/Time: 10/08/23 07:19:53 Pt. Name: RIDGE ROLAND John SortoB./Sex: 1945 Male Med Rec #: [id number] Physician: Bib Sanchez MD Financial #: [id number] Pt. Type: P Room/Bed: / Admit/Disch: 10/08/23 [...] By: Sneha Beal RN 10/08/23 07:19 Normal [facility] Operative Reporton 3 Operative Report Patient: KEILA ROLAND Age: 78 years Sex: Male : 1945 Associated Diagnoses: None Author: Laura WALTERS, Bib Jackson Procedure Procedure: Lumbar Facet [...] side with the identical technique and medications. [place] were removed and bandages applied. The patient [...] EST Respiratory Rate 15 br/min . Normal [facility] Comment on above: Result Comment: Elec tronically Signed By: Laura WALTERS, Bib Jackson\.br\Date and Time Signed: 10/08/23 08:08 EST Patient Correspondenceon Patient Correspondence [id number]#1.00T IFF [facility] Insurance Correspondence Off iceon 09-21-2023 Insurance Correspondence Office [id number]#2.00 TIFF [facility] Consent for Treatmenton 09-05 Consent for Treatment [id number]#1.00 TIFF Normal [facility] Consultation Noteon 09-14-20 Consultation Note [...] day(s), # 30 tab(s), Refills(s) 6, Pharmacy: [facility]/pharmacy #[id number], 193, cm, 05/29/23 8:59:00 EDT, Height/Length Dosing, 108.9, kg, 03/19/23 8:54:00 EDT, Weight Dosing Viagra 50 mg Tab: See Instructions, 1-2 tab(s) po 1 hr before sexual acitivity. do not exceed 2 tabs in 24 hrs., # 15 tab(s), Refills(s) 3, Pharmacy: [facility]/pharmacy #[id number], 193, cm, 08/31/22 9:11:00 EDT, [...] list: All Problems Hypercholesterolemia / SNOMED CT 50547412 / Confirmed Hernia, inguinal, right / SNOMED CT 746604594 / Confirmed BPH with urinary obstruction / SNOMED CT 9219039075 / Confirmed Elevated PSA / SNOMED CT 1604161634 / Confirmed Impotence / SNOMED CT 4557862580 / Confirmed Urinary frequency / SNOMED CT 056221538 / Confirmed Nocturia / SNOMED CT 528533996 / Confirmed Weak urinary stream / SNOMED CT 968581077 / Confirmed Gross hematuria / SNOMED CT 896458136 / Confirmed Anticoagulated / SNOMED CT 652844888 / Confirmed Urge incontinence / SNOMED CT 439595190 / Confirmed Chronic prostatitis / SNOMED CT 30982888 / Confirmed Dysuria / SNOMED CT 70249046 / Confirmed Urinary retention / SNOMED CT 286990408 / Confirmed BMI 31.0-31.9,adult / SNOMED CT 660465503 / Confirmed Incomplete bladder emptying / SNOMED CT 455326542 / Confirmed Post-void dribbling / SNOMED CT 473746208 / Confirmed Incontinence without sensory awareness / SNOMED CT 5598590264 / Confirmed At risk for falls / SNOMED CT 147399666 / Possible ED (erectile dysfunction) / SNOMED CT 4471468356 / Confirmed Leaking of urine / SNOMED CT 0894252454 / Confirmed Urinary incontinence / SNOMED CT 3528792096 / Confirmed Prostate cancer screening / SNOMED CT 099719419 / Confirmed Resolved: Hypertension / SNOMED CT 5078860109 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 Injection site well-healed Neurologic: Alert, Oriented. Psychiatric: Cooperative, Appropriate mood & affect. Results Review Lumbar MRI report once again reviewed Impression and Plan Patient is a 77-year-old male with a past medical history significant cannot for lumbar spondylosis, postlaminectomy syndrome, and chronic low back pain. Patient underwent his second bilateral L3-4 and L4-5 facet med (more content not included)... Normal [facility] Comment on above: Result Comment: Elec tronically Signed By: Stephenie Barrios PA-C\.br\Date and Time Signed: 09/14/23 08:14 EST\.br\Electronically Co-Signed By: Laura WALTERS, Bib Jackson\.br\Date and Time Co-Signed: 09/24/23 12:00 EST Office/Clinic Note-Physician on 09-14-2023 Office/Clinic Note-Physician [id number]#1.00 TIFF Normal [facility] Patient Correspondenceon Patient Correspondence [id number]#1.00 TIFF Normal [facility] Patient Correspondence [id number]#1.00 TIFF Normal [facility] Patient Correspondence [id number]#1.00 TIFF Normal [facility] Patient History Officeon Patient History Office [id number]#1.00 TIFF Normal [facility] Consent for Procedure/Surger yon 09-04-2023 Consent for Procedure/Surgery [id number]#1.00 TIFF Normal [facility] Consent for Treatmenton 10-3 Consent for Treatment [id number]#1.00 TIFF Normal [facility] Discharge Instructionson Discharge Instructions [id number] TIFF Normal [facility] IntraOperative Documentson 1 IntraOperative Documents [id number]#1.00 TIFF [facility] Main OR Intraoperative Recor don 09-04-2023 Main OR Intraoperative Record IntraOp Document Type FTPM Summary Primary Physician: Bib Sanchez MD Finalized Date/Time: 09/04/23 10:36:25 Pt. Name: RIDGE ROLANDO.B./Sex: 1945 Male Med Rec #: [id number] Physician: Bib Sanchez MD Financial #: [id number] Pt. Type: P Room/Bed: / Admit/Disch: 09/04/23 09:32:42 - Institution: Case Times FTPM Entry 1 Patient Times In Room 09/04/23 10:30:00 Out Room 09/04/23 10:37:00 Procedure Times Start 09/04/23 10:33:00 Stop 09/04/23 10:36:00 Anesthesia Times Last Modified By: Tomasa Kelly RN 09/04/23 10:36:09 Case Attendance FTPM Entry 1 Entry 2 Entry 3 Case Attendee Bib Sanchez MD, RN, Tomasa Garrett RN, [facility] Role Performed Surgeon - Primary Classification Inspector - Primary Scrub - Primary Time In 09/04/23 10:30:00 09/04/23 10:30:00 09/04/23 10:30:00 Time Out 09/04/23 10:37:00 09/04/23 10:37:00 09/04/23 10:37:00 Procedure MEDIAL BRANCH MEDIAL BRANCH MEDIAL BRANCH BLOCK(Bilateral) BLOCK(Bilateral) BLOCK(Bilateral) Comments Last Modified By: Tomasa Kelly RN, RN, Kayla J Roderick RN, Kayla J 09/04/23 10:36:10 09/04/23 10:36:10 09/04/23 10:36:10 Entry 4 Case Attendee Scott Craig Role Performed Hospital Supervisor Time In 09/04/23 10:30:00 Time Out 09/04/23 [...] Gerry JENNINGS, Laura Roldan MD, Joshua D, Hargrove, Bryce Time Out Complete 09/04/23 10:30:00 Outcomes [...] and tissue Entry 1 Skin Integrity Intact, [place], Warm, and Skin Abnormality No Dry Outcomes [...] 10:31:36 Post-Car (more content not included)... Normal [facility] Main OR Preoperative Recordo n 09-04-2023 Main OR Preoperative Record Holding Area Document Type FTPM Summary Primary Physician: Bib Sanchez MD Finalized Date/Time: 09/04/23 10:17:31 Pt. Name: RIDGE ROLAND/Sex: 1945 Male Med Rec #: [id number] Physician: Bib Sanchez MD Financial #: [id number] Pt. Type: P Room/Bed: / Admit/Disch: 09/04/23 [...] By: Sharee Dominguez RN 09/04/23 10:17 Normal [facility] Operative Reporton 3 Operative Report [...] EDT Respiratory Rate 16 br/min . Normal [facility] Comment on above: Result Comment: Elec tronically Signed By: Bib Sanchez MD\.br\Date and Time Signed: 09/04/23 10:36 EDT Consent for Treatmenton 08-06 Consent for Treatment [id number]#1.00T IFF Normal [facility] Consultation Noteon 08-28-20 Consultation Note [...] day(s), # 30 tab(s), Refills(s) 6, Pharmacy: [facility]/pharmacy #[id number], 193, cm, 05/29/23 8:59:00 EDT, Height/Length Dosing, 108.9, kg, 03/19/23 8:54:00 EDT, Weight Dosing Viagra 50 mg Tab: See Instructions, 1-2 tab(s) po 1 hr before sexual acitivity. do not exceed 2 tabs in 24 hrs., # 15 tab(s), Refills(s) 3, Pharmacy: [facility]/pharmacy #[id number], 193, cm, 08/31/22 9:11:00 EDT, [...] list: All Problems Anticoagulated / SNOMED CT 147990565 / Confirmed At risk for falls / SNOMED CT 230518980 / Possible BMI 31.0-31.9,adult / SNOMED CT 276695429 / Confirmed BPH with urinary obstruction / SNOMED CT 7565639310 / Confirmed Chronic prostatitis / SNOMED CT 52091513 / Confirmed Dysuria / SNOMED CT 42515452 / Confirmed ED (erectile dysfunction) / SNOMED CT 2804617255 / Confirmed Elevated PSA / SNOMED CT 4208900675 / Confirmed Gross hematuria / SNOMED CT 578332828 / Confirmed Hernia, inguinal, right / SNOMED CT 640107172 / Confirmed Hypercholesterolemia / SNOMED CT 74828907 / Confirmed Impotence / SNOMED CT 1021168719 / Confirmed Incomplete bladder emptying / SNOMED CT 503910550 / Confirmed Incontinence without sensory awareness / SNOMED CT 1829189598 / Confirmed Leaking of urine / SNOMED CT 4053228212 / Confirmed Nocturia / SNOMED CT 656824729 / Confirmed Post-void dribbling / SNOMED CT 431236412 / Confirmed Prostate cancer screening / SNOMED CT 756904542 / Confirmed Urge incontinence / SNOMED CT 713641313 / Confirmed Urinary frequency / SNOMED CT 122620498 / Confirmed Urinary incontinence / SNOMED CT 0594387456 / Confirmed Urinary retention / SNOMED CT 193215121 / Confirmed Weak urinary stream / SNOMED CT 076830133 / Confirmed Objective Vital Signs 08/28/2023 7:51 [...] to follow-up (more content not included)... Normal [facility] Comment on above: Result Comment: Elec tronically Signed By: Laura WALTERS, Bib Chahal.br\Date and Time Signed: 08/28/23 08:26 EDT Insurance Correspondence Off iceon 08-28-2023 Insurance Correspondence Office [id number]#1.00T IFF Normal [facility] Office/Clinic Note-Physician on 08-28-2023 Office/Clinic Note-Physician [id number]#1.00 TIFF Normal [facility] Patient Correspondenceon Patient Correspondence [id number]#1.00 TIFF Normal [facility] Patient Correspondence [id number] TIFF Normal [facility] Patient Correspondence [id number] TIFF Normal [facility] Patient Correspondence [id number]#1.00 TIFF Normal [facility] Patient History Officeon Patient History Office [id number]#1.00 TIFF [facility] Consent for Procedure/Surger yon 08-07-2023 Consent for Procedure/Surgery [id number]#1.00 CD:127 Normal [facility] Consent for Treatmenton Consent for Treatment [id number]#1.00 CD:127 [facility] Discharge Instructionson Discharge Instructions [id number]#1.00 CD:127 [facility] IntraOperative Documentson IntraOperative Documents [id number]#1.00 CD:127 [facility] Main OR Intraoperative Recor don 08-07-2023 Main OR Intraoperative Record IntraOp Document Type FTPM Summary Primary Physician: Bib Sanchez MD Finalized Date/Time: 08/07/23 13:22:25 Pt. Name: RIDGE ROLANDO.B./Sex: 1945 Male Med Rec #: [id number] Physician: Bib Sanchez MD Financial #: [id number] Pt. Type: P Room/Bed: / Admit/Disch: 08/07/23 12:06:33 - Institution: Case Times FTPM Entry 1 Patient Times In Room 08/07/23 13:16:00 Out Room 08/07/23 13:23:00 Procedure Times Start 08/07/23 13:19:00 Stop 08/07/23 13:22:00 Anesthesia Times Last Modified By: Robin JENNINGS, Tomasa Davidson 08/07/23 13:22:17 Case Attendance FTPM Entry 1 Entry 2 Entry 3 Case Attendee Bib Sanchez MD, RN, Tomasa Garrett RN, [facility] Role Performed Surgeon - Primary Classification Inspector - Primary Scrub - Primary Time In 08/07/23 13:16:00 08/07/23 13:16:00 08/07/23 13:16:00 Time Out 08/07/23 13:23:00 08/07/23 13:23:00 08/07/23 13:23:00 Procedure MEDIAL BRANCH MEDIAL BRANCH MEDIAL BRANCH BLOCK(Bilateral) BLOCK(Bilateral) BLOCK(Bilateral) Comments Last Modified By: Tomasa Kelly RN, RN, Tomasa Alexander RN 08/07/23 13:22:18 08/07/23 13:22:18 08/07/23 13:22:18 Entry 4 Case Attendee Donna Hall Role Performed Hospital Supervisor Time In 08/07/23 13:16:00 Time Out 08/07/23 [...] Given Participants Gerry JENNINGS, Laura Roldan MD, Isabel Bateman Amy Time Out [...] and tissue Entry 1 Skin Integrity Intact, [place], Warm, and Skin Abnormality No Dry Outcomes [...] Text: The (more content not included)... Normal [facility] Main OR Preoperative Recordo n 08-07-2023 Main OR Preoperative Record Holding Area Document Type FTPM Summary Primary Physician: Bib Sanchez MD Finalized Date/Time: 08/07/23 12:40:14 Pt. Name: RIDGE ROLAND /Sex: 1945 Male Med Rec #: [id number] Physician: Bib Sanchez MD Financial #: [id number] Pt. Type: P Room/Bed: / Admit/Disch: 08/07/23 [...] By: Sharee Dominguez RN 08/07/23 12:40 Normal [facility] Operative Reporton 3 Operative Report [...] EDT Respiratory Rate 14 br/min . Normal [facility] Comment on above: Result Comment: Elec tronically Signed By: Laura WALTERS, Bib Jackson\.br\Date and Time Signed: 08/07/23 13:35 EDT Patient Correspondenceon Patient Correspondence [id number]#1.00 CD:127 Normal [facility] Insurance Correspondence Off iceon 07-11-2023 Insurance Correspondence Office [id number]#2.00 CD:127 Normal [facility] PROF CHEM 8 (BAS METB)on Anion gap [Moles/Vol] 12.2 mmol/L Normal [facility] Comment on above: Performed By: #### B MP #### [facility] [address] [address] [address] Liban Whyte Calcium [Mass/Vol] 9.0 mg/dL Normal 8.5-10.1 [facility] Comment on above: Performed By: #### B MP #### [facility] [address] [address] [address] Liban Whyte Chloride [Moles/Vol] 103 mmol/L Normal 98-107 [facility] Comment on above: Performed By: #### B MP #### [facility] [address] [address] [address] Liban Whyte CO2 [Moles/Vol] 27.6 mmol/L Normal 21.0-32.0 [facility] Comment on above: Performed By: #### B MP #### [facility] [address] [place] [address] Dr. Liban Whyte Creatinine [Mass/Vol] 0.82 mg/dL Normal 0.70-1.30 [facility] Comment on above: Performed By: #### B MP #### [facility] [address] [address] [address] Liban Whyte EGFR-AF MACANESE >60 Normal >=60 [facility] Comment on above: Performed By: #### B MP #### [facility] [address] [address] [address] Liban Whyte EGFR-NON AF MACANESE >60 Normal >=60 [facility] Comment on above: Performed By: #### B MP #### [facility] [address] [place] [place] [address] Dr. Liban Whyte Glucose [Mass/Vol] 116 mg/dL Critically high 74-106 T [facility] Comment on above: Performed By: #### B MP #### [facility] [address] [place] [address] Dr. Liban Whyte Potassium [Moles/Vol] 3.8 mmol/L Normal 3.5-5.1 [facility] Comment on above: Performed By: #### B MP #### [facility] [address] [place] [place] [address] Dr. Liban Whyte Sodium [Moles/Vol] 139 mmol/L Normal 136-145 [facility] Comment on above: Performed By: #### B MP #### [facility] [address] [place] [address] Dr. Liban Whyte Urea nitrogen [Mass/Vol] 18.0 mg/dL Normal 7.0-18.0 [facility] Comment on above: Performed By: #### B MP #### [facility] [address] [place] [address] Dr. Liban Whyte Urea nitrogen/Creatinine [Mass ratio] 22.0 mg/mg Normal [facility] Comment on above: Performed By: #### B MP #### [facility] [address] [place] [address] Dr. Liban Whyte CBC AUTO DIFFon 03-12-2023 BASO # 0.0 103/ul Normal 0.0-0.1 [facility] Comment on above: Performed By: #### C BC #### [facility] [address] [place] [address] Dr. Liban Whyte Basophils/100 WBC (Bld) 0.5 % Normal 0.2-2.0 [facility] Comment on above: Performed By: #### C BC #### [facility] [address] [place] [address] Dr. Liban Whyte EO # 0.1 103/ul Normal 0.0-0.7 [facility] Comment on above: Performed By: #### C BC #### [facility] [address] [place] [address] Dr. Liban Whyte Eosinophils/100 WBC (Bld) 1.1 % Normal 0.9-7.0 [facility] Comment on above: Performed By: #### C BC #### [facility] [address] [place] [address] Dr. Liban Whyte Erythrocyte distribution width (RBC) [Ratio] 13.5 % Normal 11.0-15.0 [facility] Comment on above: Performed By: #### C BC #### [facility] [address] [place] [address] Dr. Liban Whyte Hematocrit (Bld) [Volume fraction] 47.5 % Normal 42.0-54.0 [facility] Comment on above: Performed By: #### C BC #### [facility] [address] [place] [address] Dr. Liban Whyte Hemoglobin (Bld) [Mass/Vol] 16.2 g/dL Normal 14.0-18.0 [facility] Comment on above: Performed By: #### C BC #### [facility] [address] [place] [address] Dr. Liban Whyte IG # 0.04 10e3/ul Critically high 0.00-0.03 [facility] Comment on above: Performed By: #### C BC #### [facility] [address] [place] [address] Dr. Liban Whyte IG % 0.5 % Normal 0.0-0.5 [facility] Comment on above: Performed By: #### C BC #### [facility] [address] [place] [address] Dr. Liban Whyte LYMPH # 1.7 103/ul Normal 1.2-3.8 [facility] Comment on above: Performed By: #### C BC #### [facility] [address] [place] [address] Dr. Liban Whyte Lymphocytes/100 WBC (Bld) 22.9 % Normal 20.5-60.0 [facility] Comment on above: Performed By: #### C BC #### [facility] [address] [place] [place] [address] Dr. Liban Whyte MANUAL DIFF REQ NO Normal [facility] Comment on above: Performed By: #### C BC #### [facility] [address] [place] [address] Dr. Liban Whyte MCH (RBC) [Entitic mass] 31.6 pg Normal 25.9-34.0 [facility] Comment on above: Performed By: #### C BC #### [facility] [address] [place] [address] Dr. Liban Whyte MCHC (RBC) [Mass/Vol] 34.1 g/dL Normal 29.9-35.2 [facility] Comment on above: Performed By: #### C BC #### [facility] [address] [place] [address] Dr. Liban Whyte MCV (RBC) [Entitic vol] 92.6 fL Normal 80.0-94.0 [facility] Comment on above: Performed By: #### C BC #### [facility] [address] [place] [address] Dr. Liban Whyte MONO # 0.7 103/ul Normal 0.3-0.8 [facility] Comment on above: Performed By: #### C BC #### [facility] [address] [place] [address] Dr. Liban Whyte Monocytes/100 WBC (Bld) 9.4 % Normal 1.7-12.0 [facility] Comment on above: Performed By: #### C BC #### [facility] [address] [place] [address] Dr. Liban Whyte NEUT # 4.8 103/ul Normal 1.4-6.5 [facility] Comment on above: Performed By: #### C BC #### [facility] [address] [place] [address] Dr. Liban Whyte Neutrophils/100 WBC (Bld) 65.6 % Normal 43.0-75.0 [facility] Comment on above: Performed By: #### C BC #### [facility] [address] [place] [address] Dr. Liban Whyte Platelet mean volume (Bld) [Entitic vol] 11.1 fL Normal 9.5-13.5 [facility] Comment on above: Performed By: #### C BC #### [facility] [address] [address] [address] Liban Whyte PLT 210 103/ul Normal 150-450 [facility] Comment on above: Performed By: #### C BC #### [facility] [address] [address] [address] Liban Whyte RBC 5.13 106/ul Normal 4.70-6.10 [facility] Comment on above: Performed By: #### C BC #### [facility] [address] [place] [address] Dr. Liban Whyte WBC 7.4 103/ul Normal 4.0-11.0 [facility] Comment on above: Performed By: #### C BC #### [facility] [address] [place] [address] Dr. Liban Whyte LIPID PROFILEon 03-12-2023 CHOL-HDL RATIO NORM SEE BELOW Normal [facility] Comment on above: Result Comment: 3.3 - 4.4 LOW RISK 4.4 - 7.1 AVERAGE RISK 7.1 - 11.0 MODERATE RISK >11.0 HIGH RISK Performed By: #### A ST, ALT, LIPID #### [facility] [address] [place] [address] Dr. Liban Whyte Cholesterol [Mass/Vol] 134 mg/dL Normal <=200 [facility] Comment on above: Performed By: #### A ST, ALT, LIPID #### [facility] [address] [place] [address] Dr. Liban Whyte Cholesterol in HDL [Mass/Vol] 62 mg/dL Critically high 40-60 [facility] Comment on above: Performed By: #### A ST, ALT, LIPID #### [facility] [address] [place] [address] Dr. Liban Whyte Cholesterol in LDL [Mass/Vol] 57.4 mg/dL Normal [facility] Comment on above: Performed By: #### A ST, ALT, LIPID #### [facility] [address] [place] [address] Dr. Liban Whyte Cholesterol.total/Ch olesterol in HDL [Mass ratio] 2.2 {ratio} Normal [facility] Comment on above: Performed By: #### A ST, ALT, LIPID #### [facility] [address] [address] [address] Liban Whyte HDL NORMAL > or = 60 mg/dl - LO W CARDIOVASCULAR RISK <40 mg/dl - HIGH CARDIOVASCULAR RISK Normal [facility] Comment on above: Performed By: #### A ST, ALT, LIPID #### [facility] [address] [address] [address] Liban Whyte LDL CALC NORMAL SEE BELOW Normal [facility] Comment on above: Result Comment: <100 mg/dl OPTIMAL 100 - 129 mg/dl NEAR OR ABOVE OPTIMAL 130 - 159 mg/dl BORDERLINE HIGH 160 - 189 mg/dl HIGH >190 mg/dl VERY HIGH Performed By: #### A ST, ALT, LIPID #### [facility] [address] [address] [address] Liban Whyte Triglyceride [Mass/Vol] 73 mg/dL Normal <=150 [facility]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 28.4 kg/m2 [facility] 05-07-2024 14:31-0400 Body weight 105.85 kg [facility] 05-07-2024 14:31-0400 Diastolic blood pressure 79 mm[Hg] [facility] 05-07-2024 14:31-0400 Heart rate 78 /min [facility] 05-07-2024 14:31-0400 Respiratory rate 16 /min [facility] 05-07-2024 14:31-0400 Systolic blood pressure 151 mm[Hg] [facility] 05-02-2024 10:25-0400 Diastolic blood pressure 82 mm[Hg] Stephenie Barrios [facility] 05-02-2024 10:25-0400 Heart rate 79 /min Stephenie Barrios [facility] 05-02-2024 10:25-0400 Mean blood pressure 102 mm[Hg] Stephenie Barrios [facility] 05-02-2024 10:25-0400 Respiratory rate 14 /min Stephenie Barrios [facility] 05-02-2024 10:25-0400 Systolic blood pressure 143 mm[Hg] Stephenie Barrios [facility] General 04-28-2024 10:15-0400 Body height 193.04 cm [facility] 04-28-2024 10:15-0400 Body mass index (BMI) [Ratio] 28.6 kg/m2 [facility] 04-28-2024 10:15-0400 Body weight 106.65 kg [facility] 04-28-2024 10:15-0400 Diastolic blood pressure 79 mm[Hg] [facility] 04-28-2024 10:15-0400 Heart rate 73 /min [facility] 04-28-2024 10:15-0400 Respiratory rate 12 /min [facility] 04-28-2024 10:15-0400 Systolic blood pressure 142 mm[Hg] [facility] 03-14-2024 09:47-0400 Diastolic blood pressure 74 mm[Hg] Stephenie Loudcaster [facility] 03-14-2024 09:47-0400 Heart rate 67 /min Stephenie Loudcaster [facility] 03-14-2024 09:47-0400 Mean blood pressure 92 mm[Hg] Stephenie Loudcaster [facility] 03-14-2024 09:47-0400 Respiratory rate 16 /min Stephenie Loudcaster [facility] 03-14-2024 09:47-0400 Systolic blood pressure 129 mm[Hg] Stephenie Loudcaster [facility] 01-25-2024 13:26-0400 Diastolic blood pressure 76 mm[Hg] Stephenie Loudcaster [facility] 01-25-2024 13:26-0400 Heart rate 71 /min Stephenie Loudcaster [facility] 01-25-2024 13:26-0400 Mean blood pressure 94 mm[Hg] Stephenie Loudcaster [facility] 01-25-2024 13:26-0400 Respiratory rate 16 /min Stephenie Loudcaster [facility] 01-25-2024 13:26-0400 Systolic blood pressure 130 mm[Hg] Stephenie Barrios [facility] 01-18-2024 14:37-0400 Body height 193.04 cm [facility] 01-18-2024 14:37-0400 Body mass index (BMI) [Ratio] 27.8 kg/m2 [facility] 01-18-2024 14:37-0400 Body weight 103.58 kg [facility] 01-18-2024 14:37-0400 Diastolic blood pressure 79 mm[Hg] [facility] 01-18-2024 14:37-0400 Heart rate 71 /min [facility] 01-18-2024 14:37-0400 Respiratory rate 16 /min [facility] 01-18-2024 14:37-0400 Systolic blood pressure 138 mm[Hg] [facility] 01-09-2024 11:34-0500 Heart rate 57 /min Bert Huang [facility] 01-09-2024 11:34-0500 SaO2% (BldA) [Mass fraction] 96 % Bert Huang [facility] 01-09-2024 11:34-0500 Diastolic blood pressure 93 mm[Hg] Bert Huang [facility] 01-09-2024 11:34-0500 Mean blood pressure 118 mm[Hg] Bert Huang [facility] 01-09-2024 11:34-0500 Systolic blood pressure 167 mm[Hg] Bert Huang [facility] 01-09-2024 11:33-0500 Respiratory rate 16 /min Bert Huang [facility] 01-09-2024 11:27-0500 Diastolic blood pressure 83 mm[Hg] Bert Huang [facility] 01-09-2024 11:27-0500 Heart rate 71 /min Bert Huang [facility] 01-09-2024 11:27-0500 Respiratory rate 14 /min Bert Huang [facility] 01-09-2024 11:27-0500 SaO2% (BldA) [Mass fraction] 98 % Noel Jerry [facility] 01-09-2024 11:27-0500 Systolic blood pressure 154 mm[Hg] Noel Jerry [facility] 01-09-2024 11:03-0500 Diastolic blood pressure 93 mm[Hg] Bert Jerry [facility] 01-09-2024 11:03-0500 Heart rate 62 /min Bert Jerry [facility] 01-09-2024 11:03-0500 Mean blood pressure 120 mm[Hg] Bert Huang [facility] 01-09-2024 11:03-0500 Systolic blood pressure 173 mm[Hg] Bert Jerry [facility] 01-09-2024 11:01-0500 SaO2% (BldA) [Mass fraction] 96 % Bert Huang [facility] 01-09-2024 11:00-0500 Mean blood pressure 123 mm[Hg] Bert Huang [facility] 01-09-2024 11:00-0500 Body temperature 97.7 [degF] Bert Huang [facility] 01-09-2024 11:00-0500 Respiratory rate 14 /min Bert Huang [facility] 12-31-2023 09:48-0500 Body height 193.04 cm [facility] 12-31-2023 09:48-0500 Body mass index (BMI) [Ratio] 27.6 kg/m2 [facility] 12-31-2023 09:48-0500 Body weight 102.73 kg [facility] 12-31-2023 09:48-0500 Diastolic blood pressure 81 mm[Hg] [facility] 12-31-2023 09:48-0500 Heart rate 68 /min [facility] 12-31-2023 09:48-0500 Respiratory rate 16 /min [facility] 12-31-2023 09:48-0500 Systolic blood pressure 129 mm[Hg] [facility] 12-14-2023 09:54-0500 Blood Pressure Location Homero XAVIER [facility] 12-14-2023 09:54-0500 Diastolic blood pressure 81 mm[Hg] Homero XAVIER [facility] 12-14-2023 09:54-0500 Heart rate 81 /min Homero XAVIER [facility] 12-14-2023 09:54-0500 Respiratory rate 16 /min Homero XAVIER [facility] 12-14-2023 09:54-0500 Systolic blood pressure 137 mm[Hg] Homero XAVIER [facility] 12-10-2023 12:26-0500 Diastolic blood pressure 86 mm[Hg] Stephenie Barrios [facility] 12-10-2023 12:26-0500 Heart rate 60 /min Stephenie Barrios [facility] 12-10-2023 12:26-0500 Mean blood pressure 105 mm[Hg] Stephenie Barrios [facility] 12-10-2023 12:26-0500 Respiratory rate 20 /min Stephenie Barrios [facility] 12-10-2023 12:26-0500 Systolic blood pressure 144 mm[Hg] Stephenie Barrios [facility] 11-14-2023 10:31-0500 Body height 182.9 cm Marisol Connors MD Work Phone: [facility] 11-14-2023 10:31-0500 Body mass index (BMI) [Ratio] 31.33 kg/m2 Marisol Connors MD Work Phone: [facility] 11-14-2023 10:31-0500 Body weight 104.78 kg Marisol Connors MD Work Phone: [facility] 11-14-2023 10:31-0500 Diastolic blood pressure 64 mm[Hg] Marisol Connors MD Work Phone: [facility] 11-14-2023 10:31-0500 Heart rate 62 /min Marisol Connors MD Work Phone: [facility] 11-14-2023 10:31-0500 Systolic blood pressure 100 mm[Hg] Marisol Connors MD Work Phone: [facility] 11-09-2023 11:14-0500 Diastolic blood pressure 76 mm[Hg] Stephenie Barrios [facility] 11-09-2023 11:14-0500 Heart rate 67 /min Stephenie Barrios [facility] 11-09-2023 11:14-0500 Mean blood pressure 95 mm[Hg] Stephenie Barrios [facility] 11-09-2023 11:14-0500 Respiratory rate 14 /min Stephenie Barrios [facility] 11-09-2023 11:14-0500 Systolic blood pressure 132 mm[Hg] Stephenie Barrios [facility] 10-23-2023 09:00-0500 Body height 193.04 cm Devang Ball Other [facility] 10-23-2023 09:00-0500 Body mass index (BMI) [Ratio] 28.31 kg/m2 Devang Ball Other [facility] [employer] Other 10-23-2023 09:00-0500 Body weight 105.51 kg Devang Ball Other [facility] [employer] Other 10-23-2023 09:00-0500 Body weight 105.5 kg [facility] 10-23-2023 09:00-0500 Diastolic blood pressure 83 mm[Hg] Devang Ball Other [facility] 10-23-2023 09:00-0500 Respiratory rate 12 /min Devang Ball Other [facility] [employer] Other 10-23-2023 09:00-0500 Systolic blood pressure 136 mm[Hg] Devang Ball Other [facility] 10-08-2023 08:11-0500 Heart rate 62 /min Bib Laura [facility] 10-08-2023 08:11-0500 SaO2% (BldA) [Mass fraction] 93 % Bib Laura [facility] 10-08-2023 08:11-0500 Diastolic blood pressure 98 mm[Hg] Bib Laura [facility] 10-08-2023 08:11-0500 Mean blood pressure 124 mm[Hg] Bib Laura [facility] 10-08-2023 08:11-0500 Systolic blood pressure 175 mm[Hg] Bib Laura [facility] 10-08-2023 08:11-0500 Respiratory rate 16 /min Bib Laura [facility] 10-08-2023 08:02-0500 Diastolic blood pressure 90 mm[Hg] Bib Laura [facility] 10-08-2023 08:02-0500 Heart rate 63 /min Bib Laura [facility] 10-08-2023 08:02-0500 SaO2% (BldA) [Mass fraction] 97 % Bib Laura [facility] 10-08-2023 08:02-0500 Systolic blood pressure 168 mm[Hg] Bib Laura [facility] 10-08-2023 07:16-0500 Heart rate 61 /min Bib Laura [facility] 10-08-2023 07:16-0500 SaO2% (BldA) [Mass fraction] 95 % Bib Alura [facility] 10-08-2023 07:16-0500 Body temperature 97.88 [degF] Bib Laura [facility] 10-08-2023 07:16-0500 Diastolic blood pressure 91 mm[Hg] Bib Laura [facility] 10-08-2023 07:16-0500 Mean blood pressure 115 mm[Hg] Bib Laura [facility] 10-08-2023 07:16-0500 Systolic blood pressure 162 mm[Hg] Bib Laura [facility] 10-08-2023 07:12-0500 Respiratory rate 15 /min Bib Laura [facility] 09-14-2023 07:47-0500 Diastolic blood pressure 75 mm[Hg] Stephenie Barrios [facility] 09-14-2023 07:47-0500 Heart rate 63 /min Stephenie Barrios [facility] 09-14-2023 07:47-0500 Mean blood pressure 91 mm[Hg] Stephenie Barrios [facility] 09-14-2023 07:47-0500 Respiratory rate 16 /min Stephenie Barrios [facility] 09-14-2023 07:47-0500 Systolic blood pressure 124 mm[Hg] Stephenie Barrios [facility] 08-07-2023 13:25-0400 Heart rate 61 /min Bib Laura [facility] 08-07-2023 13:25-0400 SaO2% (BldA) [Mass fraction] 97 % Bib Laura [facility] 08-07-2023 13:25-0400 Diastolic blood pressure 90 mm[Hg] Bib Laura [facility] 08-07-2023 13:25-0400 Mean blood pressure 119 mm[Hg] Bib Laura [facility] 08-07-2023 13:25-0400 Systolic blood pressure 176 mm[Hg] Bib Laura [facility] 08-07-2023 13:19-0400 Diastolic blood pressure 83 mm[Hg] Bib Laura [facility] 08-07-2023 13:19-0400 Heart rate 65 /min Bib Laura [facility] 08-07-2023 13:19-0400 SaO2% (BldA) [Mass fraction] 95 % Bib Laura [facility] 08-07-2023 13:19-0400 Systolic blood pressure 153 mm[Hg] Bib Laura [facility] 08-07-2023 12:34-0400 Heart rate 62 /min Bibrubi Sanchez [facility] 08-07-2023 12:34-0400 SaO2% (BldA) [Mass fraction] 95 % Bib Laura [facility] 08-07-2023 12:34-0400 Body temperature 97.7 [degF] Bibrubi Sanchez [facility] 08-07-2023 12:34-0400 Diastolic blood pressure 73 mm[Hg] Bib Sanchez [facility] 08-07-2023 12:34-0400 Mean blood pressure 101 mm[Hg] Bibrubi Sanchez [facility] 08-07-2023 12:34-0400 Systolic blood pressure 157 mm[Hg] Bib Sanchez [facility] 08-07-2023 12:33-0400 Respiratory rate 14 /min Bib Sanchez [facility] 05-11-2023 09:40-0400 Diastolic blood pressure 77 mm[Hg] Stephenie Barrios [facility] 05-11-2023 09:40-0400 Heart rate 68 /min Stephenie Barrios [facility] 05-11-2023 09:40-0400 Mean blood pressure 95 mm[Hg] Stephenie Barrios [facility] 05-11-2023 09:40-0400 Respiratory rate 14 /min Stephenie Barrios [facility] 05-11-2023 09:40-0400 Systolic blood pressure 130 mm[Hg] Stephenie Barrios [facility] 05-01-2023 14:39-0400 Heart rate 61 /min Bibrubi Sanchez [facility] 05-01-2023 14:39-0400 SaO2% (BldA) [Mass fraction] 96 % Bib Laura [facility] 05-01-2023 14:39-0400 Diastolic blood pressure 80 mm[Hg] Bib Laura [facility] 05-01-2023 14:39-0400 Mean blood pressure 107 mm[Hg] Bib Laura [facility] 05-01-2023 14:39-0400 Systolic blood pressure 160 mm[Hg] Bib Laura [facility] 05-01-2023 14:39-0400 Respiratory rate 14 /min Bib Laura [facility] 05-01-2023 14:34-0400 Diastolic blood pressure 75 mm[Hg] Bib Laura [facility] 05-01-2023 14:34-0400 Heart rate 63 /min Bib Laura [facility] 05-01-2023 14:34-0400 Respiratory rate 14 /min Bib Laura [facility] 05-01-2023 14:34-0400 SaO2% (BldA) [Mass fraction] 98 % Bib Laura [facility] 05-01-2023 14:34-0400 Systolic blood pressure 149 mm[Hg] Bib Laura [facility] 05-01-2023 14:04-0400 Heart rate 60 /min Bib Laura [facility] 05-01-2023 14:04-0400 SaO2% (BldA) [Mass fraction] 94 % Bib Laura [facility] 05-01-2023 14:04-0400 Diastolic blood pressure 78 mm[Hg] Bib Laura [facility] 05-01-2023 14:04-0400 Mean blood pressure 103 mm[Hg] Bib Laura [facility] 05-01-2023 14:04-0400 Systolic blood pressure 152 mm[Hg] Bib Laura [facility] 05-01-2023 14:04-0400 Body temperature 97.34 [degF] Bib Sanchez [facility] 05-01-2023 14:04-0400 Respiratory rate 14 /min Bib Sanchez [facility] 04-30-2023 09:00-0400 Body height 193.04 cm Devang Ball Other [facility] [employer] Other 04-30-2023 09:00-0400 Body mass index (BMI) [Ratio] 28.36 kg/m2 Devang Ball Other [facility] [employer] Other 04-30-2023 09:00-0400 Body weight 105.69 kg Devang Ball Other [place] [employer] Other 04-30-2023 09:00-0400 Diastolic blood pressure 83 mm[Hg] Devang Ball Other [place] [employer] Other 04-30-2023 09:00-0400 Respiratory rate 12 /min Devang Ball Other [facility] Other 04-30-2023 09:00-0400 Systolic blood pressure 135 mm[Hg] Devang Ball Other [facility] Other 03-19-2023 08:45-0400 Diastolic blood pressure 89 mm[Hg] Stephenie Barrios [facility] 03-19-2023 08:45-0400 Heart rate 67 /min Stephenie Barrios [facility] 03-19-2023 08:45-0400 Mean blood pressure 106 mm[Hg] Stephenie Barrios [facility] 03-19-2023 08:45-0400 Respiratory rate 20 /min Stephenie Barrios [facility] 03-19-2023 08:45-0400 Systolic blood pressure 140 mm[Hg] Stephenie Barrios [facility] 03-12-2023 09:15-0400 Heart rate 65 /min Bib Laura [facility] 03-12-2023 09:15-0400 SaO2% (BldA) [Mass fraction] 96 % Bib Laura [facility] 03-12-2023 09:15-0400 Diastolic blood pressure 92 mm[Hg] Bib Laura [facility] 03-12-2023 09:15-0400 Mean blood pressure 114 mm[Hg] Bib Laura [facility] 03-12-2023 09:15-0400 Systolic blood pressure 159 mm[Hg] Bib Laura [facility] 03-12-2023 09:15-0400 Respiratory rate 16 /min Bib Laura [facility] 03-12-2023 09:11-0400 Diastolic blood pressure 67 mm[Hg] Bib Laura [facility] 03-12-2023 09:11-0400 Heart rate 70 /min Bib Laura [facility] 03-12-2023 09:11-0400 Respiratory rate 14 /min Bib Sanchez [facility] 03-12-2023 09:11-0400 SaO2% (BldA) [Mass fraction] 94 % Bib Sanchez [facility] 03-12-2023 09:11-0400 Systolic blood pressure 160 mm[Hg] Bib Sanchez [facility] 03-12-2023 08:09-0400 Heart rate 71 /min Bib Sanchez [facility] 03-12-2023 08:09-0400 SaO2% (BldA) [Mass fraction] 95 % Bib Sanchez [facility] 03-12-2023 08:09-0400 Diastolic blood pressure 69 mm[Hg] Bib Sanchez [facility] 03-12-2023 08:09-0400 Mean blood pressure 102 mm[Hg] Bib Sanchez [facility] 03-12-2023 08:09-0400 Systolic blood pressure 168 mm[Hg] Bib Sanchez [facility] 03-12-2023 08:09-0400 Body temperature 97.52 [degF] Bib Sanchez [facility] 03-12-2023 08:09-0400 Respiratory rate 12 /min Bib Sanchez [facility] 03-08-2023 09:32-0400 Body height 193.04 cm Devang Hall Work Phone: [facility] 250 DO Work Phone: 03-08-2023 09:32-0400 Body mass index (BMI) [Ratio] 29.21 kg/m2 Devang Hall Work Phone: [facility] [employer] 250 DO Work Phone: 03-08-2023 09:32-0400 Body surface area Derived from formula 2.39 m2 Devang E Ball Work Phone: [facility] [employer] 250 DO Work Phone: 03-08-2023 09:32-0400 Body weight 108.86 kg Devang E Ball Work Phone: [facility] [employer] 250 DO Work Phone: 03-08-2023 09:32-0400 Diastolic blood pressure 84 mm[Hg] Devang E Ball Work Phone: [facility] [employer] 250 DO Work Phone: 03-08-2023 09:32-0400 Heart rate 68 /min Devang E Ball Work Phone: [facility] [employer] 250 DO Work Phone: 03-08-2023 09:32-0400 Systolic blood pressure 132 mm[Hg] Devang E Ball Work Phone: [facility] [employer] 250 DO Work Phone: 02-21-2023 14:00-0400 Body height 193.04 cm Allison Blades Other [facility] Other 02-21-2023 14:00-0400 Body mass index (BMI) [Ratio] 30.43 kg/m2 Allison Blades Other [facility] Other 02-21-2023 14:00-0400 Body weight 113.4 kg Allison Blades Other [facility] Other 02-21-2023 14:00-0400 Diastolic blood pressure 66 mm[Hg] Allison Blades Other [facility] Other 02-21-2023 14:00-0400 Systolic blood pressure 110 mm[Hg] Allison Blades Other [facility] Other 01-01-2023 10:00-0500 Body height 190.5 cm LUDWIN THALIACETIC Other [facility] [employer] Other 01-01-2023 10:00-0500 Body mass index (BMI) [Ratio] 30.62 kg/m2 LUDWIN VÁSQUEZCETIC Other [facility] [employer] Other 01-01-2023 10:00-0500 Body weight 111.13 kg LUDWIN VUCETIC Other [facility] [employer] Other 01-01-2023 10:00-0500 Diastolic blood pressure 66 mm[Hg] LUDWIN VUCETIC Other [facility] [employer] Other 01-01-2023 10:00-0500 Respiratory rate 16 /min LUDWIN VÁSQUEZCETIC Other [facility] [employer] Other 01-01-2023 10:00-0500 Systolic blood pressure 118 mm[Hg] LUDWIN VUCETIC Other [facility] [employer] Other 11-29-2022 10:30-0500 Body height 193.04 cm Allison Blades Other [facility] Other 11-29-2022 10:30-0500 Body mass index (BMI) [Ratio] 29.84 kg/m2 Allison Blades Other [facility] Other 11-29-2022 10:30-0500 Body weight 111.22 kg Allison Blades Other [facility] [employer] Other 11-29-2022 10:30-0500 Diastolic blood pressure 84 mm[Hg] Allison Blades Other [facility] [employer] Other 11-29-2022 10:30-0500 Systolic blood pressure 138 mm[Hg] Allison Blades Other [facility] [employer] Other 11-28-2022 09:00-0500 Blood Pressure Location ALANIS NINA [facility] 11-28-2022 09:00-0500 Diastolic blood pressure 84 mm[Hg] ALANIS NINA [facility] 11-28-2022 09:00-0500 Heart rate 68 /min ALANIS NINA [facility] 11-28-2022 09:00-0500 Respiratory rate 16 /min ALANIS NINA [facility] 11-28-2022 09:00-0500 Systolic blood pressure 121 mm[Hg] ALANIS NINA [facility] 09-26-2022 09:33-0500 Body height 193.04 cm Devang Hall Work Phone: [employer] [place] [employer] DO Work Phone: 09-26-2022 09:33-0500 Body mass index (BMI) [Ratio] 29.7 kg/m2 Devang Hall Work Phone: [employer] [place] [employer] DO Work Phone: 09-26-2022 09:33-0500 Body surface area Derived from formula 2.41 m2 Devang Hall Work Phone: [facility]Rxagzbzzmi-Vcycrj [place] 250 DO Work Phone: 09-26-2022 09:33-0500 Body weight 110.68 kg Devang E Ball Work Phone: TS-Umtvbdyyoh-Xyvjjq [place] 250 DO Work Phone: 09-26-2022 09:33-0500 Diastolic blood pressure 78 mm[Hg] Devang E Ball Work Phone: XM-Qkywdkcpqp-Vhetjr [place] 250 DO Work Phone: 09-26-2022 09:33-0500 Heart rate 76 /min Devang E Ball Work Phone: YB-Tqulbkddiq-Hqyrhv [place] 250 DO Work Phone: 09-26-2022 09:33-0500 Systolic blood pressure 120 mm[Hg] Devang E Ball Work Phone: EI-Wqqjmdeobi-Kmvncb juliann 250 DO Work Phone: 03-28-2022 13:43-0400 Body height 193.04 cm Devang E Ball Work Phone: [facility] 250 DO Work Phone: 03-28-2022 13:43-0400 Body mass index (BMI) [Ratio] 28.48 kg/m2 Devang E Ball Work Phone: [facility] 250 DO Work Phone: 03-28-2022 13:43-0400 Body surface area Derived from formula 2.37 m2 Devang E Ball Work Phone: [facility] 250 DO Work Phone: 03-28-2022 13:43-0400 Body weight 106.14 kg Devang E Ball Work Phone: [facility] 250 DO Work Phone: 03-28-2022 13:43-0400 Diastolic blood pressure 60 mm[Hg] Devang E [facility] Work Phone: 03-28-2022 13:43-0400 Heart rate 88 /min [facility] Work Phone: 03-28-2022 13:43-0400 Systolic blood pressure 100 mm[Hg] Devang Hall Work Phone: [facility] 250 DO Work Phone: Encounters Encounter Date Encounter Type Care Provider Facility Start: 03-27-2025 End: 03-27-2025 ambulatory CARLOS OBRIEN Not Available Start: 03-07-2025 ambulatory [facility] Start: 03-05-2025 ambulatory [facility] Start: 03-04-2025 End: 03-09-2025 Emergency department patient visit [facility] Start: 03-03-2025 ambulatory [facility] Start: 02-24-2025 End: 03-08-2025 Evaluation and management of inpatient Jadon Mccloud MD Facility:[facility] Start: 02-18-2025 End: 02-18-2025 ambulatory Anita Schmid MD Facility:[facility] Start: 02-16-2025 End: 02-16-2025 ambulatory [facility] Work Phone: Start: 02-16-2025 End: 02-16-2025 Encounter for other preprocedural examination [facility] Start: 02-16-2025 End: 02-16-2025 Patient encounter procedure [facility] Physician [facility] Work Phone: Start: 01-28-2025 End: 01-28-2025 Office outpatient visit 25 minutes Marisol Connors MD Work Phone: [facility] Comment on above: Pre-operative cardio vascular examination (Primary Dx); Arteriosclerosis of coronary artery; Essential hypertension; Dyslipidemia; Status post coronary angioplasty; Former smoker; BMI 34.0-34.9,adult; Obesity, Class I, 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 Work Phone: Start: 11-12-2024 End: 11-12-2024 Hector Garay DO [...] Start: 09-24-2024 End: 09-24-2024 ambulatory DEVANG HALL Facility:[facility] Start: 09-24-2024 End: 09-24-2024 Patient encounter procedure Bert Huang [facility] Start: 08-27-2024 End: 08-27-2024 ambulatory DEVANG HALL Facility:[facility] Start: 08-27-2024 End: 08-27-2024 Patient encounter procedure Stephenie Barrios [facility] Start: 08-19-2024 End: 08-19-2024 ambulatory Bert Huang Facility:[facility] Start: 08-19-2024 End: 08-19-2024 Pain Management Bert Huang [facility] Start: 08-14-2024 End: 08-14-2024 Bamboo flowsheet Philip [...] foot Start: 08-12-2024 End: 08-12-2024 ambulatory Bert LinIlir Huang Facility:[facility] Start: 08-12-2024 End: 08-12-2024 Patient encounter procedure Bert LinIlir Huang [facility] Start: 08-11-2024 End: 08-12-2024 ambulatory Jenny Brink [employer] Comment on above: Acute pain of left k nee (Primary Dx); Poor balance; History of fall; Difficulty walking; Leg weakness, bilateral; Foot drop, right foot; History of falling; Left hip impingement syndrome; Right hip impingement syndrome Start: 08-11-2024 End: 08-11-2024 Bamboo flowsheet Jenny Brink [employer]PORATE DEVELOPMENT ASSOCI[employer] [facility] Start: 08-11-2024 End: 08-11-2024 Bamboo flowsheet Jenny Brink [employer]PORATE DEVELOPMENT ASSOCIATE [employer] Start: 08-07-2024 End: 08-07-2024 Bamboo flowsheet Jenny Brink [employer]PORATE DEVELOPMENT ASSOCIATE [employer] Start: 08-07-2024 End: 08-07-2024 Bamboo flowsheet Jenny Brink [employer]PORATE DEVELOPMENT ASSOCIATE [employer] Start: 08-07-2024 End: 08-07-2024 ambulatory Jenny Brink [employer]ATE DEVELOPMENT [employer] Comment on above: Acute pain of left k nee (Primary Dx); Poor balance; History of fall; Difficulty walking; Leg weakness, bilateral; Foot drop, right foot; History of falling; Left hip impingement syndrome; Right hip impingement syndrome Start: 08-05-2024 End: 08-05-2024 Bamboo flowsheet Jenny Brink [employer]PORATE DEVELOPMENT ASSOCI[employer] Start: 08-05-2024 End: 08-05-2024 Bamboo flowsheet Jenny Brink [employer]PORATE DEVELOPMENT ASSOCIATE [employer] Start: 08-05-2024 End: 08-05-2024 ambulatory Jenny Buiink [employer]OPMENT [employer] Comment on above: Acute pain of left k nee (Primary Dx); Poor balance; History of fall; Difficulty walking; Leg weakness, bilateral; Foot drop, right foot; History of falling; Left hip impingement syndrome; Right hip impingement syndrome Start: 07-31-2024 End: 07-31-2024 Bamboo flowsheet Tita Gaspary [employer]PORATE DEVELOPMENT [employer]OCI[employer] Start: 07-31-2024 End: 07-31-2024 Bamboo flowsheet Tita Gaspary [employer]POR[employer] DEVELOPMENT ASSOCI[employer] Start: 07-31-2024 End: 07-31-2024 ambulatory Tita Fulton [employer]OP[employer] Comment on above: Acute pain of left k nee (Primary Dx); Poor balance; History of fall; Difficulty walking; Leg weakness, bilateral; Foot drop, right foot; History of falling Start: 07-29-2024 End: 07-29-2024 Bamboo flowsheet Jenny Brink [employer]PORATE DEVELOPMENT ASSOCIATE [employer] Start: 07-29-2024 End: 07-29-2024 Bamboo flowsheet Jenny Brink [employer]PORATE DEVELOPMENT ASSOCIATE [employer] Start: 07-29-2024 End: 07-29-2024 ambulatory Jenny Buiink [employer]POR[employer] DEVELOPMENT [employer]OCI[employer] Comment on above: Acute pain of left k nee (Primary Dx); Poor balance; History of fall; Difficulty walking; Leg weakness, bilateral; Foot drop, right foot; History of falling; Left hip impingement syndrome; Right hip impingement syndrome Start: 07-24-2024 End: 07-24-2024 Bamboo flowsheet Jenny Alvarenga [employer]PORATE DEVELOPMENT ASSOCIATE [employer] Start: 07-24-2024 End: 07-24-2024 Bamboo flowsheet Jenny Alvarenga [employer]PORATE DEVELOPMENT ASSOCIATE [employer] Start: 07-24-2024 End: 07-24-2024 ambulatory Jenny Alvarenga [employer] DEVELOPMENT ASSOCI[employer] Comment on above: Acute pain of left k nee (Primary Dx); History of fall; Poor balance; Difficulty walking; Leg weakness, bilateral; Foot drop, right foot; History of falling; Left hip impingement syndrome; Right hip impingement syndrome Start: 07-22-2024 End: 07-22-2024 Bamboo flowsheet Jenny Alvarenga [employer]PORATE DEVELOPMENT ASSOCI[employer] Start: 07-22-2024 End: 07-22-2024 Bamboo flowsheet Jenny Alvarenga [employer]PORATE DEVELOPMENT [employer]OCI[employer] Start: 07-22-2024 End: 07-22-2024 ambulatory Jenny Alvarenga [employer]ELOPMENT [employer]OCI[employer] Comment on above: Acute pain of left k nee (Primary Dx); History of fall; Poor balance; Difficulty walking; Leg weakness, bilateral; Foot drop, right foot; History of falling; Left hip impingement syndrome; Right hip impingement syndrome Start: 07-17-2024 End: 07-17-2024 Bamboo flowsheet Patti Miranda [employer]PORATE DEVELOPMENT ASSOCI[employer] Start: 07-17-2024 End: 07-17-2024 Bamboo flowsheet Patti Miranda [employer]PORATE DEVELOPMENT ASSOCIATE [employer] Start: 07-17-2024 End: 07-17-2024 ambulatory Patti Miranda [employer]ATE DEVELOPMENT ASSOCI[employer] Comment on above: Acute pain of left k nee (Primary Dx); History of fall; Poor balance; Leg weakness, bilateral Start: 07-15-2024 End: 07-15-2024 Bamboo flowsheet Ramírez Paez DO Work Phone: [facility] [place] [address] Start: 07-15-2024 End: 07-15-2024 Bamboo flowsheet Ramírez Paez DO Work Phone: [facility] [address] Start: 07-15-2024 End: 07-15-2024 Office outpatient new 45 minutes Ramírez Paez DO Work Phone: [facility] Comment on above: Multilevel degenerat michelle disc disease (Primary Dx); Hypophonia Start: 07-15-2024 End: 07-15-2024 ambulatory Jennyeldon Alvarenga [employer]PORATE DEVELOPMENT ASSOCIATE [employer] Comment on above: Acute pain of left k nee (Primary Dx); History of fall; Poor balance; Leg weakness, bilateral; Difficulty walking; Foot drop, right foot; History of falling; Left hip impingement syndrome; Right hip impingement syndrome Start: 07-10-2024 End: 07-10-2024 Bamboo flowsheet Jenny Brink CORPORATE DEVELOPMENT ASSOCIATE [employer] [facility] Start: 07-10-2024 End: 07-10-2024 Bamboo flowsheet Jenny Brink CORPORATE DEVELOPMENT ASSOCIATE [employer] Start: 07-10-2024 End: 07-10-2024 ambulatory Jenny Brink [employer]PORATE DEVELOPMENT ASSOCIATE [employer] Comment on above: Acute pain of left k nee (Primary Dx); History of fall; Poor balance; Leg weakness, bilateral; Difficulty walking; Foot drop, right foot; History of falling; Left hip impingement syndrome; Right hip impingement syndrome Start: 07-08-2024 End: 07-08-2024 Bamboo flowsheet Jenny Brink CORPORATE DEVELOPMENT ASSOCIATE [facility] [facility] Start: 07-08-2024 End: 07-08-2024 Bamboo flowsheet Jenny Brink CORPORATE DEVELOPMENT ASSOCIATE [employer] Start: 07-08-2024 End: 07-08-2024 Telephone encounter Jr. Andrew Garay DO Work Phone: [facility] Comment on above: Dentist Start: 07-08-2024 End: 07-08-2024 ambulatory Jenny Brink CORPORATE DEVELOPMENT ASSOCIATE [employer] Comment on above: Acute pain of left k nee (Primary Dx); History of fall; Poor balance; Foot drop, right foot; Difficulty walking; Leg weakness, bilateral; History of falling; Left hip impingement syndrome; Right hip impingement syndrome Start: 07-03-2024 End: 07-03-2024 Bamboo flowsheet Patti Miranda CORPORATE DEVELOPMENT ASSOCIATE [employer] [facility] Start: 07-03-2024 End: 07-03-2024 Bamboo flowsheet Patti Miranda CORPORATE DEVELOPMENT ASSOCIATE [employer] Start: 07-03-2024 End: 07-03-2024 ambulatory Patti Miranda [employer]PORATE DEVELOPMENT ASSOCIATE [employer] Comment on above: Acute pain of left k nee (Primary Dx); History of fall; Poor balance; Foot drop, right foot Start: 07-02-2024 End: 07-02-2024 ambulatory Stephenie Barrios Facility:[facility] Start: 07-02-2024 End: 07-02-2024 Pain Management Stephenie Barrios [facility] Start: 06-24-2024 End: 06-24-2024 ambulatory Bert Huang Facility:[facility] Start: 06-24-2024 End: 06-24-2024 Pain Management Bert Huang [facility] Start: 06-23-2024 End: 06-23-2024 ambulatory MERLIN GERBER Not Available Start: 06-19-2024 End: 06-19-2024 ambulatory JENNY ALVARENGA Not Available Start: 06-17-2024 End: 06-17-2024 Patient encounter procedure Bert Huang [facility] Start: 06-17-2024 End: 06-17-2024 ambulatory Bert Huang Facility:[facility] Start: 06-17-2024 End: 06-17-2024 Pain Management Bert Huang [facility] Start: 06-17-2024 End: 06-17-2024 ambulatory JENNY ALVARENGA Not Available Start: 06-13-2024 End: 06-13-2024 ambulatory [facility] Work Phone: Start: 06-13-2024 End: 06-13-2024 Patient encounter procedure [facility] Work Phone: Start: 06-12-2024 End: 06-12-2024 ambulatory ALANIS WOOD Facility: [facility] Start: 06-12-2024 End: 06-12-2024 Patient encounter procedure ALANIS E NINA [facility] Start: 06-10-2024 End: 06-10-2024 ambulatory JENNY ALVARENGA Not Available Start: 06-06-2024 End: 06-06-2024 ambulatory FATOUMATA MONTES Not Available Start: 06-05-2024 End: 06-05-2024 ambulatory TITA DONALDO Not Available Start: 06-03-2024 End: 06-03-2024 ambulatory JENNY ALVARENGA Not Available Start: 05-29-2024 End: 05-29-2024 ambulatory PHILIP ALDRICH Not Available Start: 05-27-2024 End: 05-27-2024 ambulatory PHILIP ALDRICH Not Available Start: 05-22-2024 End: 05-22-2024 Office outpatient visit 25 minutes Marisol Connors MD Work Phone: [facility] Comment on above: Arteriosclerosis of coronary artery (Primary Dx); Essential hypertension; Dyslipidemia; Status post coronary angioplasty; BMI 31.0-31.9,adult; Former smoker; At risk for falls; Idiopathic peripheral neuropathy Start: 05-22-2024 End: 05-22-2024 [facility] Start: 05-13-2024 End: 05-13-2024 ambulatory FATOUMATA MONTES Not Available Start: 05-07-2024 End: 05-07-2024 ambulatory [facility] Work Phone: Start: 05-07-2024 End: 05-07-2024 Patient encounter procedure [facility] Work Phone: Start: 05-02-2024 End: 05-02-2024 ambulatory [facility] Facility:[facility] Start: 05-02-2024 End: 05-02-2024 Pain Management Stephenie Barrios [facility] Start: 04-29-2024 Non-patient / Non-visit [facility] Work Phone: Start: 04-28-2024 End: 04-28-2024 ambulatory [facility] Work Phone: Start: 04-28-2024 End: 04-28-2024 Patient encounter procedure [facility] Work Phone: Start: 03-14-2024 End: 03-14-2024 ambulatory PA-C Stephenie Barrios Facility:[facility] Start: 03-14-2024 End: 03-14-2024 Pain Management Stepheniejakob Barrios [facility] Start: 01-25-2024 End: 01-25-2024 ambulatory PA-C Stephenie Barrios Facility:[facility] Start: 01-25-2024 End: 01-25-2024 Pain Management Stephenie Barrios [facility] Start: 01-18-2024 End: 01-18-2024 ambulatory [facility] Work Phone: Start: 01-18-2024 End: 01-18-2024 Patient encounter procedure [facility] Work Phone: Start: 01-09-2024 End: 01-09-2024 ambulatory Bert Huang Facility:[facility] Start: 01-09-2024 End: 01-09-2024 Pain Management Bert Huang [facility] Start: 12-31-2023 End: 12-31-2023 ambulatory [facility] Work Phone: Start: 12-31-2023 End: 12-31-2023 Patient encounter procedure [facility] Work Phone: Start: 12-24-2023 Non-patient / Non-visit [facility] [employer] Work Phone: Start: 12-14-2023 End: 12-14-2023 ambulatory Homero R DUC Facility:[facility] Start: 12-14-2023 End: 12-14-2023 Patient encounter procedure Homero Marie DUC [facility] Start: 12-11-2023 End: 12-11-2023 ambulatory ALANIS WOOD Facility:[facility] Start: 12-10-2023 End: 12-10-2023 ambulatory PA-C Stephenie Barrios Facility:[facility] Start: 12-10-2023 End: 12-10-2023 Pain Management Stephenie Barrios [facility] Start: 11-28-2023 End: 11-28-2023 ambulatory Devang Hall Other [facility] Other Start: 11-28-2023 Telephone encounter Devang Hall [facility] Start: 11-14-2023 End: 11-14-2023 Office outpatient visit 25 minutes Marisol Connors MD Work Phone: [facility] Comment on above: Arteriosclerosis of coronary artery (Primary Dx); Status post coronary angioplasty; Dyslipidemia; Essential hypertension; Obesity (BMI 30.0-34.9); At risk for falls Start: 11-09-2023 End: 11-09-2023 ambulatory PA-C Stephenie Barrios Facility:[facility] Start: 11-09-2023 End: 11-09-2023 Pain Management Stephenie Barrios [facility] Start: 10-23-2023 End: 10-23-2023 ambulatory Devang Hall Other [facility] Other Start: 10-23-2023 Office outpatient vi sit 25 minutes Devang Hall [facility] Start: 10-23-2023 End: 10-23-2023 Patient encounter procedure [facility] Work Phone: Start: 10-08-2023 End: 10-08-2023 ambulatory Bib D Laura Facility:[facility] Start: 10-08-2023 End: 10-08-2023 Pain Management Bib D Laura [facility] Start: 09-14-2023 End: 09-14-2023 ambulatory DEVANG HALL Facility:[facility] Start: 09-14-2023 End: 09-14-2023 Pain Management Stephenie Barrios [facility] Start: 09-04-2023 End: 09-04-2023 ambulatory Bib D Laura Facility:[facility] Start: 08-28-2023 End: 08-28-2023 ambulatory Bib D Laura Facility:[facility] Start: 08-07-2023 End: 08-07-2023 ambulatory Bib D Laura Facility:[facility] Start: 08-07-2023 End: 08-07-2023 Pain Management Bib D Laura [facility] Start: 05-11-2023 End: 05-11-2023 Pain Management Stephenie Barrios [facility] Start: 05-03-2023 End: 05-03-2023 ambulatory Devang Hall Other [facility] Other Start: 05-03-2023 Telephone encounter Devang COLE [facility] Start: 05-01-2023 End: 05-01-2023 ambulatory Devang Hall Other [facility] Other Start: 05-01-2023 Telephone encounter Devang COLE [facility] Start: 05-01-2023 End: 05-01-2023 Pain Management Bib D Laura [facility] Start: 04-30-2023 End: 04-30-2023 ambulatory Devang Hall Other [facility] Other Start: 04-30-2023 Patient encounter procedure Devang Hall [facility] Start: 03-19-2023 End: 03-19-2023 Pain Management Stephenie Barrios [facility] Start: 03-14-2023 End: 03-15-[address] MARISOL CONNORS Facility:[facility] Start: 03-12-2023 End: 03-13-[address] MARISOL CONNORS Facility:[facility] Start: 03-12-2023 End: 03-12-2023 Pain Management Bib Sanchez [facility] Start: 03-08-2023 FUV, Provider: Marisol Connors, Status: Pen, Time: 9:50 AM [facility] Work Phone: Start: 03-08-2023 Office outpatient vi sit 25 minutes [facility] Work Phone: Start: 03-08-2023 ambulatory Marisol Connors Facility : Start: 03-06-2023 Rx Renewal Devang Gonzalez l [facility] Work Phone: Start: 02-21-2023 End: 02-21-2023 ambulatory Allison Kenyon Other [facility] Other Start: 02-21-2023 Office outpatient vi sit 15 minutes Allisoncalixto Kenyon [facility] Start: 01-10-2023 End: 03-02-[address] DOCTOR PLUMMER Facility:[facility] Start: 01-01-2023 End: 01-01-2023 ambulatory LUDWIN CUNNINGHAMGRAYSON Other [facility] Other Start: 01-01-2023 Office outpatient ne w [facility] [place] PPN Start: 11-29-2022 End: 11-29-2022 ambulatory Allison Kenyon Other [facility] Other Start: 11-29-2022 Office outpatient ne w 45 minutes Allison Kenyon [facility] Start: 11-29-2022 Telephone encounter Allison Costa [employer] Start: 11-28-2022 End: 11-28-2022 Patient encounter procedure ALANIS WOOD [facility] Start: 11-15-2022 End: 11-15-2022 ambulatory Devang Hall Other [facility] Other Start: 11-15-2022 Telephone encounter Devang Hall [facility] Start: 11-14-2022 End: 11-15-[address] DEVANG HALL Facility:[facility] Start: 10-11-2022 Rx Renewal Devang collins Work Phone: [facility] 250 DO Work Phone: Start: 09-26-2022 Office outpatient vi sit 25 minutes Devang Hall Work Phone: [facility] DO Work Phone: Start: 09-26-2022 ambulatory Marisol Connors Facility : Start: 05-30-2022 End: 05-30-2022 Patient encounter procedure Goldy Alberto Jr. [facility] Start: 05-11-2022 End: 05-11-2022 Patient encounter procedure Goldy Collins Remy Cruz [facility] Start: 05-09-2022 End: 05-09-2022 Patient encounter procedure Goldy Collins Remy Cruz [facility] Start: 04-25-2022 End: 04-25-2022 Emergency department patient visit Dr. Devang Hall Facility:[facility] Start: 04-07-2022 End: 04-08-[address] MARISOL CONNORS Facility: Start: 03-28-2022 Office outpatient vi sit 25 minutes Devang Hall Work Phone: [facility] 250 DO Work Phone: Start: 03-28-2022 ambulatory Marisol Connors Facility :[id number] Start: 03-06-2022 Rx Renewal Marisol Connors MD Work Phone: [facility] 250 DO Work Phone: Start: 09-26-2021 Rx Renewal Marisol Connors MD Work Phone: [facility] 250 DO Work Phone: Start: 09-22-2021 Rx Renewal Marisol Connors MD Work Phone: [facility] 250 DO Work Phone: Start: 04-11-2018 End: 04-13-2018 Evaluation and management of inpatient DEVANG HALL [facility] Start: 04-10-2018 Ambulatory [facility] Start: 04-10-2018 End: 04-15-2018 Ambulatory [facility] Procedures Date Procedure Procedure Detail Performing Clinician Start: 01-28-2025 Ecg routine ecg w/le ast 12 lds w/i&r Marisol Connors MD Work Phone: Start: 11-12-2024 Radiologic examinati on knee 1/2 views Jr. Andrew Garay DO Work Phone: Start: 08-19-2024 Local anesthetic sac ral epidural block [employer] Comment on above: 60% relief Start: 06-24-2024 Epidural insertion o f temporary spinal cord stimulator electrode [employer] Comment on above: 60% relief Start: 01-09-2024 Injection of sacroil iac joint using fluoroscopic guidance [employer] Comment on above: 90% relief for 4 hrs Start: 10-08-2023 Radiofrequency ablat ion of nerve root of lumbar spine using fluoroscopic guidance [employer] Comment on above: Bilateral L3/4+L4/5- no relief Start: 09-04-2023 Injection of facet j oint using fluoroscopic guidance [employer] Comment on above: Bilateral L3/4, L4/5 MBB-80% relief for 1 day Start: 08-07-2023 Injection of facet j oint using fluoroscopic guidance [employer] Comment on above: BL L3/L4 L4/L5 MBB 8 5% Relief x 4 hours Start: 05-29-2023 Local anesthetic sac ral epidural block Bib Sanchez Comment on above: Caudal john 50% relie f Start: 05-01-2023 Injection of facet j oint using fluoroscopic guidance [employer] Comment on above: bilateral 75% relief for 2 hours Start: 03-12-2023 Injection of facet j oint using fluoroscopic guidance [employer] Comment on above: pt changed amt of re lief to 80% x 4 hr. 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 3 Start: 10-16-2019 back surgery 10 Stephenie [place] Comment on above: due to stenosis at [...] Start: 10-16-2019 back surgery 7 Stephenie S ollie Comment on above: 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 3 Start: 10-16-2019 back surgery 8 Stephenie S ollie Comment on above: 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 3 Start: 10-16-2019 back surgery 9 Stephenie S ger Comment on above: 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 3 Start: 06-16-2019 Placement of stent i n cardiac conduit Goldy Remy Cruz Start: 11-05-2018 History of placement of stent for coronary artery disease H/O heart artery stent Comment on above: PCI/stent RCA Start: 04-13-2018 INCENTIVE SPIROMETRY RT ANG SMITA Start: 04-13-2018 END TIDAL CO2 CONTINUOUS ANG SMITA Start: 04-13-2018 INCENTIVE SPIROMETRY RT ANG SMITA Start: 04-13-2018 INITIATE OXYGEN THER APY PROTOCOL ANG SMITA Start: 04-13-2018 PULSE OXIMETRY, CONTINUOUS ANG SMITA Start: 04-13-2018 DISCHARGE PATIENT ANG YO O Start: 04-13-2018 INCENTIVE SPIROMETRY RT ANG SMITA Start: 04-13-2018 END TIDAL CO2 CONTINUOUS ANG SMITA Start: 04-13-2018 PULSE OXIMETRY, CONTINUOUS ANG SMITA Start: 04-13-2018 INTAKE AND OUTPUT ANG YO O Start: 04-13-2018 END TIDAL CO2 CONTINUOUS ANG SMITA Start: 04-13-2018 PULSE OXIMETRY, CONTINUOUS ANG SMITA Start: 04-13-2018 INCENTIVE SPIROMETRY RT ANG SMITA Start: 04-12-2018 END TIDAL CO2 CONTINUOUS ANG SMITA Start: 04-12-2018 PULSE OXIMETRY, CONTINUOUS ANG SMITA Start: 04-12-2018 INCENTIVE SPIROMETRY RT ANG SMITA Start: 04-12-2018 INCENTIVE SPIROMETRY RT ANG SMITA Start: 04-12-2018 END TIDAL CO2 CONTINUOUS ANG SMITA Start: 04-12-2018 INCENTIVE SPIROMETRY RT ANG SMITA Start: 04-12-2018 PULSE OXIMETRY, CONTINUOUS ANG SMITA Start: 04-12-2018 INCENTIVE SPIROMETRY RT ANG SMITA Start: 04-12-2018 Radex spine lumbosac ral 2/3 views ANG SMITA Start: 04-12-2018 END TIDAL CO2 CONTINUOUS ANG SMITA Start: 04-12-2018 INCENTIVE SPIROMETRY RT ANG SMITA Start: 04-12-2018 PULSE OXIMETRY, CONTINUOUS ANG SMITA Start: 04-12-2018 INCENTIVE SPIROMETRY RT ANG SMITA Start: 04-12-2018 END TIDAL CO2 CONTINUOUS ANG SMITA Start: 04-12-2018 INCENTIVE SPIROMETRY RT ANG SMITA Start: 04-12-2018 INITIATE OXYGEN THER APY PROTOCOL ANG SMITA Start: 04-12-2018 PULSE OXIMETRY, CONTINUOUS ANG SMITA Start: 04-12-2018 DME ORDER FOR WALKER OP ANG SMITA Start: 04-12-2018 INCENTIVE SPIROMETRY RT ANG SMITA Start: 04-12-2018 Blood count complete auto&auto difrntl wbc ANG SMITA Start: 04-12-2018 END TIDAL CO2 CONTINUOUS ANG SMITA Start: 04-12-2018 PULSE OXIMETRY, CONTINUOUS ANG SMITA Start: 04-12-2018 BASIC METABOLIC PANE L W/ REFLEX TO MG FOR LOW K ANG SMITA Start: 04-12-2018 CATHETER REMOVAL ANG SMITA Start: 04-12-2018 DAILY WEIGHTS ANG SMITA Start: 04-12-2018 INTAKE AND OUTPUT ANG YO O Start: 04-12-2018 OT EVAL AND TREAT ANG YO O Start: 04-12-2018 PT EVAL AND TREAT ANG YO O Start: 04-12-2018 ACTIVITY TOLERATED B O SMITA Start: 04-12-2018 AMBULATE PATIENT ANG SMITA Start: 04-12-2018 END TIDAL CO2 CONTINUOUS ANG SMITA Start: 04-12-2018 PULSE OXIMETRY, CONTINUOUS ANG SMITA Start: 04-12-2018 INCENTIVE SPIROMETRY RT ANG SMITA Start: 04-11-2018 END TIDAL CO2 CONTINUOUS ANG SMITA Start: 04-11-2018 INCENTIVE SPIROMETRY RT ANG SMITA Start: 04-11-2018 PULSE OXIMETRY, CONTINUOUS ANG SMITA Start: 04-11-2018 INCENTIVE SPIROMETRY RT ANG SMITA Start: 04-11-2018 DIET GENERAL ANG SMITA Start: 04-11-2018 END TIDAL CO2 CONTINUOUS ANG SMITA Start: 04-11-2018 INCENTIVE SPIROMETRY RT ANG SMITA Start: 04-11-2018 PULSE OXIMETRY, CONTINUOUS ANG SMITA Start: 04-11-2018 END TIDAL CO2 CONTINUOUS ANG SMITA Start: 04-11-2018 ASSESS ANG SMITA Start: 04-11-2018 IP CONSULT TO SOCIAL WORK ANG SMITA Start: 04-11-2018 MAINTAIN IV ACCESS ANG Y OO Start: 04-11-2018 NURSING COMMUNICATION B O SMITA Start: 04-11-2018 PLACE INTERMITTENT P NEUMATIC COMPRESSION DEVICE ANG SMITA Start: 04-11-2018 CONTINUE INDWELLING CATHETHER ANG SMITA Start: 04-11-2018 INCENTIVE SPIROMETRY RT ANG SMITA Start: 04-11-2018 INITIATE OXYGEN THER APY PROTOCOL ANG SMITA Start: 04-11-2018 NEURO/VASCULAR CHECKS B O SMITA Start: 04-11-2018 PULSE OXIMETRY, CONTINUOUS ANG SMITA Start: 04-11-2018 TOBACCO CESSATION EDUCATION ANG SMITA Start: 04-11-2018 WOUND CARE ANG SMITA Start: 04-11-2018 ADVANCE DIET TOLE RATED (NURSING COMMUNICATION) ANG SMITA Start: 04-11-2018 ELEVATE HOB ANG SMITA Start: 04-11-2018 FULL CODE ANG SMITA Start: 04-11-2018 INTAKE AND OUTPUT ANG YO O Start: 04-11-2018 NOTIFY PHYSICIAN (SPECIFY) ANG SMITA Start: 04-11-2018 VITAL SIGNS ANG SMITA Start: 04-11-2018 TELEMETRY MONITORING ANG SMITA Start: 04-11-2018 BASIC METABOLIC PANE L W/ REFLEX TO MG FOR LOW K ANG SMITA Start: 04-11-2018 Blood count complete automated ANG SMITA Start: 04-11-2018 PATIENT STATUS (FROM ED OR OR/PROCEDURAL) ANG SMITA Start: 04-11-2018 TRANSFER PATIENT ANG SMITA Start: 04-11-2018 FLUORO FOR SURGICAL PROCEDURES ANG SMITA Start: 04-11-2018 SURGICAL PATHOLOGY ANG Y OO Start: 04-10-2018 Basic metabolic pane l calcium total ANG SMITA Start: 04-10-2018 Prothrombin time ANG SMITA Start: 04-10-2018 TYPE AND SCREEN ANG SMITA Start: 04-10-2018 Blood count complete automated ANG SMITA Start: 04-10-2018 URINE RT REFLEX TO CULTURE ANG SMITA Start: 04-10-2018 Cul prsmptv pthgnc o rganism scrn w/colony estimj ANG SMITA Start: 04-10-2018 Radex entir thrc lmb r crv sac spi w/skull 2/3 vw ANG SMITA Start: 04-10-2018 EKG 12-LEAD ANG SMITA Start: 11-05-2017 inguinal hernia repair Goldy [...] DTaP/Tdap/Td Vaccines (3 - Td or Tdap) [facility] Start: 11-08-2030 DTaP/Tdap/Td Vaccine s (2 - Tdap) DTaP/Tdap/Td Vaccines (2 - Tdap) [facility] Start: 11-11-2025 End: 11-11-2025 Patient encounter procedure 11/11/2025 10:15 AM EST Office Visit [facility] [address] [place] [address] Jr. Andrew Garay DO [address] [place] [address] [facility] Start: 06-17-2025 End: 06-17-2025 Patient encounter procedure 06/17/2025 9:30 AM EDT Office Visit [facility] [address] [facility] [address] [place] [address] Marisol Connors MD [address] [facility] [address] [place] [address] [facility] Start: 04-29-2025 Medicare Annual Well ness Visit Medicare Annual Wellness Visit (AWV) [facility] Start: 11-12-2024 End: 11-12-2024 Patient encounter procedure [...] [address] [place] [address] Jenny Alvarenga, CORPORATE DEVELOPMENT ASSOCIATE [facility] Start: 08-05-2024 End: 08-05-2024 ambulatory 08/05/2024 10:00 AM EDT Treatment [facility] [address] [place] [address] Jenny Alvarenga CORPORATE DEVELOPMENT ASSOCIATE [facility] Start: 07-31-2024 End: 07-31-2024 ambulatory 07/31/2024 11:00 AM EDT Treatment [facility] [address] [place] [address] Tita Fulton CORPORATE DEVELOPMENT ASSOCIATE [facility] Start: 07-29-2024 End: 07-29-2024 ambulatory 07/29/2024 10:00 AM EDT Treatment [facility] [address] [place] [address] Jenny Alvarenga CORPORATE DEVELOPMENT ASSOCIATE [facility] Start: 07-24-2024 End: 07-24-2024 ambulatory 07/24/2024 10:00 AM EDT Treatment [facility] [address] [place] [address] Jenny Alvarenga CORPORATE DEVELOPMENT ASSOCIATE [facility] Start: 07-22-2024 End: 07-22-2024 [...] Treatment [facility] [address] [facility] [address] [place] [address] Jenny Alvarenga PTA [facility] Start: 07-08-2024 End: 07-08-2024 ambulatory [facility] Comment on above: Arrived Start: 07-06-2024 COVID-19 Vaccine ( season) COVID-19 Vaccine ( season) [facility] Start: 07-06-2024 Influenza vaccination Influenza Vacc ine (#1) [facility] Start: 05-22-2024 End: 05-22-2024 Patient encounter procedure 05/22/2024 9:50 AM EDT Office Visit [facility] [address] [facility] [address] [place] [address] Marisol Connors MD [address] [facility] [address] [place] [address] [facility] Start: 09-18-2023 FUV, Provider: Marisol Connors, Status: Pen, Time: 9:50 AM FUV, Provider: Marisol Connors, Status: Pen, Time: 9:50 AM [place] [address] DO Work Phone: Start: 07-06-2023 COVID-19 Vaccine ( season) COVID-19 Vaccine ( season) [facility] Start: 03-08-2023 FUV, Provider: Marisol Connors, Status: Pen, Time: 9:50 AM FUV, Provider: Marisol Connors, Status: Pen, Time: 9:50 AM [facility] [address] DO Work Phone: Start: 10-22-2022 COVID-19 Vaccine (4 - Pfizer series) COVID-19 Vaccine (4 - Pfizer series) [facility] Start: 09-26-2022 FUV, Provider: Marisol Connors, Status: Pen, Time: 9:40 AM FUV, Provider: Marisol Connors, Status: Pen, Time: 9:40 AM -[facility] [address] DO Work Phone: Start: 03-28-2022 FUV, Provider: Marisol Connors, Status: Pen, Time: 1:20 PM FUV, Provider: Marisol Connors, Status: Pen, Time: 1:20 PM [facility] [address] DO Work Phone: Start: 12-15-2021 FUV, Provider: Marisol Connors, Status: Pen, Time: 10:30 AM FUV, Provider: Marisol Connors, Status: Pen, Time: 10:30 AM -[facility] [address] DO Work Phone: Start: 2021 RSV High Risk: (Elde rly (60+) or Population) (1 - 1-dose 75+ series) RSV High Risk: (Elderly (60+) or Population) (1 - 1-dose 75+ series) [facility] Start: 07-27-2021 Diabetes mellitus screening Diabetes Screening [facility] Start: 2006 RSV patient s and/or patients aged 60+ years (1 - 1-dose 60+ series) RSV patients and/or patients aged 60+ years (1 - 1-dose 60+ series) [facility] Start: 1996 Zoster Vaccines (1 of 2) Zoste r Vaccines (1 of 2) [facility] Start: 1964 Hepatitis C screening Hepatitis C Sc claude [facility] Start: 1945 Lipid panel Lipid Panel [facility] Start: 1945 Medicare Annual Well ness Visit Medicare Annual Wellness Visit (AWV) [facility] Comprehensive metabo lic 2000 panel - Serum or Plasma [facility] Immunizations Immunization Date Immunization Notes Care Provider Tali hwang 10-24-2024 influenza, high dose seasonal, preservative-free [facility] 10-24-2024 influenza virus vaccine, unspecified formulation Jr. Garay DO Work Phone: [facility] 08-20-2023 influenza virus vaccine, unspecified formulation Homero XAVIER [facility] 08-27-2022 Pfizer COVID-19 Vac Bivalent 30 MCG/0.3ML Intramuscular Suspension Devang Hall Work Phone: [facility] 08-14-2022 Fluzone High-Dose Quadrivalent 0.7 ML Intramuscular Suspension Prefilled Syringe Devang Hall Work Phone: [facility] 250 DO Work Phone: 08-14-2022 influenza virus vaccine, unspecified formulation ALANIS WOOD [facility] 08-14-2022 influenza, high dose seasonal, preservative-free Devang Hall Other [facility] VIEO Other 10-03-2021 Pfizer-BioNTech COVID-19 Vacc 30 MCG/0.3ML Intramuscular Suspension Devang Hall Work Phone: [facility] 10-03-2021 SARS-CoV-2 (COVID-19 ) Ad26 vaccine, recombinant Goldy Alberto Jr. [facility] 07-01-2021 Fluzone High-Dose Quadrivalent 0.7 ML Intramuscular Suspension Prefilled Syringe Devang Hall Work Phone: [facility] 07-01-2021 influenza virus vaccine, unspecified formulation ALANIS WOOD [facility] 06-05-2021 influenza virus vaccine, unspecified formulation Goldy Alberto Jr. [facility] 01-25-2021 Pfizer-BioNTech COVID-19 Vacc 30 MCG/0.3ML Intramuscular Suspension Marisol Connors MD Work Phone: [facility] 01-25-2021 SARS-CoV-2 (COVID-19 ) Ad26 vaccine, recombinant Goldy Alberto Jr. [facility] 01-03-2021 COVID-19 Vaccine Pfi zer - Documentation Purposes Only Devang Hall Other [facility] 01-03-2021 SARS-CoV-2 (COVID-19 ) mRNA-1273 vaccine Goldy Alberto Jr. [facility] 12-28-2020 Pfizer-BioNTech COVID-19 Vacc 30 MCG/0.3ML Intramuscular Suspension Devang Hall Work Phone: [facility] 11-08-2020 diphtheria, tetanus toxoids and pertussis vaccine Devang Hall Work Phone: [facility] 250 DO Work Phone: 07-06-2020 influenza virus vaccine, unspecified formulation Marisol Connors MD Work Phone: [facility] 07-02-2020 influenza virus vaccine, unspecified formulation ALANIS WOOD [facility] 08-19-2018 influenza virus vaccine, unspecified formulation ALANIS WOOD [facility] 08-19-2018 Seasonal trivalent influenza vaccine, adjuvanted, preservative free Devang E Ball Work Phone: [place] [address] DO Work Phone: 07-06-2018 influenza virus vaccine, unspecified formulation Marisol Connors MD Work Phone: [place] [address] DO Work Phone: 08-24-2017 pneumococcal conjuga te vaccine, 13 valent Devang E Ball Work Phone: [facility] 08-17-2017 influenza virus vaccine, unspecified formulation ALANIS WOOD [facility] 08-17-2017 influenza, high dose seasonal, preservative-free Devang E Ball Work Phone: [place] [address] DO Work Phone: 08-17-2017 influenza, injectabl e, quadrivalent, preservative free Patti Miranda [facility] 11-05-2016 pneumococcal polysaccharide vaccine, 23 valent Marisol Connors MD Work Phone: [place] [address] DO Work Phone: 08-11-2016 influenza virus vaccine, unspecified formulation ALANIS WOOD [facility] 08-05-2016 influenza virus vaccine, unspecified formulation ALANIS WOOD [facility] 08-05-2016 influenza, injectabl e, quadrivalent, preservative free Devang E Ball Work Phone: [facility] 07-06-2014 pneumococcal polysaccharide vaccine, 23 valent Devang Bustillo Rafael Work Phone: [facility] Payers Date Payer Category Payer Private Health Insurance 2023 Medicaid [employer] MEDICARE A DVANTAGE [id number] 2021 Medicare [id number] 2021 Medicare (Managed Care) [employer] [place] [id number] 2017 Medicare [id number] Medicare [id number] 2.16.840.1.867003.19 1946 Unknown [id number] 2.16.840.1.305695.3.579.2. 356 1946 Unknown [id number] 2.16.840.1.372730.3.579.2. 356 1946 Unknown [id number] 2.16.840.1.068031.3.579.2. 356 1946 Unknown [id number] 2.16.840.1.982411.3.579.2. 356 1946 Unknown [id number] 2.16.840.1.672069.3.579.2. 593 1946 Unknown [id number] 2.16.840.1.487096.3.579.2. 593 1946 Unknown [id number] 2.16.840.1.057316.3.579.2. 593 1946 Unknown [id number] 2.16.840.1.673769.3.579.2. 593 1946 Unknown [id number] 2.16.840.1.832503.3.579.2. 593 1946 Unknown [id number] 2.16.840.1.759820.3.579.2. 727 1946 Unknown [id number] 2.16.840.1.190174.3.579.2. 727 1946 Unknown [id number] 2.16.840.1.369044.3.579.2. 727 1946 Unknown [id number] 2.16.840.1.485813.3.579.2. 727 1946 Unknown [id number] 2.16.840.1.577705.3.579.2. 727 1946 Unknown [id number] 2.16.840.1.840290.3.579.2. 727 1946 Unknown [id number] 2.16.840.1.156198.3.579.2. 727 1946 Unknown [id number] 2.16.840.1.945072.3.579.2. 727 1946 Unknown [id number] 2.16.840.1.057299.3.579.2. 1946 Unknown [id number] 2.16.840.1.192553.3.579.2 1946 Unknown [id number] 2.16.840.1.569575.3.579.2. 1946 Unknown [id number] 2.16.840.1.693745.3.579.2 1946 Unknown [id number] 2.16.840.1.778397.3.579.2. 1946 Unknown [id number] 2.16.840.1.947323.3.579.2 1946 Unknown [id number] 2.16.840.1.758342.3.579.2 1946 Unknown [id number] 2.16.840.1.238169.3.579.2 1946 Unknown [id number] 2.16.840.1.048620.3.579.2 1946 Unknown [id number] 2.16.840.1.051187.3.579.2 1946 Unknown [id number] 2.16.840.1.482503.3.579.2. 1946 Unknown [id number] 2.16.840.1.489796.3.579.2 1946 Unknown [id number] 2.16.840.1.560802.3.579.2. 1946 Unknown [id number] 2.16.840.1.805061.3.579.2 1946 Unknown [id number] 2.16.840.1.876302.3.579.2. 1946 Unknown [id number] 2.16.840.1.190099.3.579.2. 1244 1946 Unknown [id number] 2.16.840.1.019393.3.579.2. 1244 1946 Unknown [id number] 2.16.840.1.898708.3.579.2. 1286 1946 Unknown [id number] 2.16.840.1.084897.3.579.2. 1286 1946 Unknown [id number] 2.16.840.1.042714.3.579.2. 1286 1946 Unknown [id number] 2.16.840.1.919653.3.579.2. 1286 1946 Unknown [id number] 2.16.840.1.262400.3.579.2. 1286 1946 Unknown [id number] 2.16.840.1.709991.3.579.2. 1286 1946 Unknown [id number] 2.16.840.1.790783.3.579.2. 196 1946 Unknown [id number] 2.16.840.1.917142.3.579.2. 196 1946 Unknown [id number] 2.16.840.1.314657.3.579.2. 9 1946 Unknown [id number] 2.16840.1.853196.3.579.2. 1259 1946 Unknown [id number] 2.16.840.1.402532.3.579.2. 1259 1946 Unknown [id number] 2.16.840.1.139135.3.579.2. 1258 1946 Unknown [id number] 2.16.840.1.880812.3.579.2. 1259 1946 Unknown [id number] 2.16.840.1.288156.3.579.2. 1258 1946 Unknown [id number] 2.16.840.1.408952.3.579.2. 1258 1946 Unknown [id number] 2.16.840.1.004192.3.579.2. 1258 1946 Unknown [id number] 2.16.840.1.714125.3.579.2. 1258 1946 Unknown [id number] 2.16.840.1.709749.3.579.2. 1258 1946 Unknown [id number] 2.16.840.1.042226.3.579.2. 1258 1946 Unknown [id number] 2.16.840.1.267811.3.579.2. 1258 1946 Unknown [id number] 2.16.840.1.092919.3.579.2. 1258 1946 Unknown [id number] 2.16.840.1.144229.3.579.2. 1258 1946 Unknown [id number] 2.16.840.1.526337.3.579.2. 1258 1946 Unknown [id number] 2.16.840.1.516844.3.579.2. 1258 1946 Unknown [id number] 2.16.840.1.257580.3.579.2. 1258 1946 Unknown [id number] 2.16.840.1.142760.3.579.2. 1258 1946 Unknown [id number] 2.16.840.1.371214.3.579.2. 1258 1946 Unknown [id number] 2.16.840.1.557773.3.579.2. 1258 1946 Unknown [id number] 2.16.840.1.716286.3.579.2. 1258 1946 Unknown [id number] 2.16.840.1.515240.3.579.2. 1259 1946 Unknown [id number] 2.16.840.1.185850.3.579.2. 1259 1946 Unknown [id number] 2.16.840.1.530266.3.579.2. 1259 1946 Unknown [id number] 2.16.840.1.496739.3.579.2. 1259 1946 Unknown [id number] 2.16.840.1.547180.3.579.2. 1259 1946 Unknown [id number] 2.16.840.1.353762.3.579.2. 1259 Self-pay Self Pay [id number] Unknown [employer] Social History Date Type Detail Facility [facility] if [facility] Start: 1945 Sex Assigned At Male [facility] Start: 11-14-2023 End: 01-28-2025 Social alcohol use Social alcohol use [facility] 250 DO Work Phone: Start: 06-16-2019 End: 11-15-2021 Tobacco smoking status Ex-smoker (finding) [facility] Comment on above: pt quit smoking in 984 Start: 11-14-2023 End: 01-28-2025 Sex Assigned At Male [facility] Tobacco smoking status Never [facility] Comment on above: pt quit smoking in 984 Start: 01-01-2023 End: 04-05-2023 Tobacco smoking status NHIS Never Smoker [facility] History of tobacco use Current smoker [facility] Work Phone: History of tobacco use Cigarette Smoker [facility] Work Phone: Start: 11-14-2023 End: 07-14-2024 Tobacco use and exposure Smokeless tobacco non-user [facility] Work Phone: Start: 11-14-2023 Alcohol intake Ex-drinker (finding) [facility] Work Phone: Start: 1945 Sex Assigned At [facility] Start: 11-04-2023 End: 01-28-2025 Exposure to SARS-CoV-2 (event) Not sure [facility] Start: 07-15-2024 End: 01-28-2025 Alcoholic beverage intake Current drinker of alcohol (finding) [facility] Work Phone: Start: 04-05-2023 Alcohol Comment caffeine 2-3 cups/da y [facility] Start: 02-16-2025 Sex Male (finding) [facility] Medical Equipment Procedure Code Equipment Code Equipment Origin al Text Equipment Identifier Dates FDA Start: 06-16-2019 CL CLOSURE DEVIC E EXOSEAL [id number] FDA Start: 06-16-2019 CATARACT EXTRACT ION W/ INTRAOCULAR LENS Carlos Obrien DO 11/02/20 Non Biological Eye R [id number] FDA Start: 11-02-2020 CL CLOSURE DEVIC E [...] Assessment Result Facility 09-24-2024 Functional Status N/A [facility] 08-27-2024 Functional Status N/A [facility] 08-19-2024 Functional Status N/A [facility] 08-12-2024 Functional Status N/A [facility] 07-02-2024 Functional Status N/A [facility] 06-24-2024 Functional Status N/A [facility] 06-17-2024 Functional Status N/A [facility] 06-12-2024 Functional Status N/A [facility] 05-02-2024 Functional Status N/A [facility] 03-14-2024 Functional Status N/A [facility] 01-25-2024 Functional Status N/A [facility] 01-09-2024 Functional Status N/A [facility] 12-14-2023 Functional Status N/A [facility] 12-10-2023 Functional Status N/A [facility] 11-09-2023 Functional Status N/A [facility] 10-08-2023 Functional Status N/A [facility] 09-14-2023 Functional Status N/A [facility] 08-07-2023 Functional Status N/A [facility] 05-11-2023 Functional Status N/A [facility] 05-01-2023 Functional Status N/A [facility] 03-19-2023 Functional Status N/A [facility] 03-12-2023 Functional Status N/A [facility] 11-28-2022 Functional Status N/A [facility] 05-30-2022 Functional Status N/A [facility] 05-05-2022 Functional Status N/A [facility] Clinical Notes 12-29-2020 to 03-09-2025 Marisol Connors MD - 01/28/2025 10:30 AM EDTPatient InstructionsJr. Andrew Garay DO - 11/12/2024 10:15 AM EST Note Date & Type Note Facility 03-09-2025 Note Admission Informatio n Patient: Ridge Roland : 1945 Date of Admission: 02/24/2025 12:00:25 Date of Discharge: 03/08/2025 12:06:00 Code Status: Full resuscitation PCP: Devang Hall DO Consult: Bob DARNELL, Lisa Marie; Butch SHIPMAN, Christian Levine; Becky WALTERS, Denny Marie; Sarthak WALTERS, Deonte Brandon; Miller WALTERS, Jorgito Palma; Remberto WALTERS, Hung Follow Up with Provider With When Contact Information Dr. Paez (Neurology) Within 1 month Additional Instructions: Call for followup appointment Devang Rafael In 0 days [address] [place] [address]- Business (1) Additional Instructions: St Madeline WALTERS, Anita Costa Additional Instructions: Appointment Scheduled Hospital Course: Mr. Roland is a 79-year-old male with a PMHx of HTN, HLD, chronic gout, lumbar stenosis with neurogenic claudication, chronic peripheral neuropathy, and overactive bladder. Admitted for under orthopedic surgery for persistent low back pain and bilateral foot drop. Underwent L2-5 decompression and fusion with durotomy 02/24/25. Hospital course has been overall uncomplicated, awaiting SNF placement. Notable increased confusion, intermittent disorientation, and visual/auditory hallucinations. Hospitalist has been consulted for altered mental status. Metabolic encephalopathy was secondary to acute urinary tract infection. Patient was treated with broad-spectrum antimicrobial coverage once speciation was complete patient was de-escalated to ceftriaxone. Metabolic encephalopathy improved and patient was discharged back to intermediate facility. Discharge Time Spent with Patient: 35 min were spent with final examination of the patient, discussion of the hospital stay, instructions for continuing care to all relevant caregivers, and preparation of discharge records and prescriptions. Medications New Medications [id number], [address], [place] [id number], [phone] QUEtiapine (SEROquel 25 mg oral tablet) 25 Milligram Oral (given by mouth) once a day (at bedtime) as needed insomnia for 30 Days. Refills: 0. Taking For Insomnia Last Dose: Other Medications cephalexin (Keflex 500 mg oral capsule) 500 Milligram Oral (given by mouth) every 6 hours. Last Dose: nystatin topical (nystatin 100,000 units/g topical powder) 1 Application Topical (on the skin) 2 times a day as needed itching. Last Dose: Medications That Were Updated - Follow Current Instructions Other Medications Current: potassium chloride (potassium chloride 20 mEq oral tablet, extended release) 40 Milliequivalent Oral (given by mouth) twice a day (with meals). Last Dose: Medications That Have Not Changed Other Medications allopurinol (allopurinol 300 mg oral tablet) 1 Tabs Oral (given by mouth) every day. Last Dose: amLODIPine (amLODIPine 5 mg oral tablet) Oral (given by mouth) 2 times a day. Last Dose: ascorbic acid (Vitamin C 1000 mg oral tablet) 1 Tabs Oral (given by mouth) every day. Last Dose: aspirin (aspirin 81 mg oral delayed release tablet) 1 Tabs Oral (given by mouth) every day. Last Dose: atorvastatin (Lipitor 40 mg oral tablet) 1 Tabs Oral (given by mouth) once a day (at bedtime). Last Dose: calcium-vitamin D (calcium (as carbonate)-vitamin D 600 mg-62.5 mcg (2500 intl units) oral capsule) 2 Capsules Oral (given by mouth) every day. Last Dose: cyanocobalamin (Vitamin B12 1000 mcg oral tablet) 1 Tabs Oral (given by mouth) every day. Last Dose: hydroCHLOROthiazide (hydroCHLOROthiazide 25 mg oral tablet) 1 Tabs Oral (given by mouth) every day. Last Dose: losartan (losartan 25 mg oral tablet) 1 Tabs Oral (given by mouth) every day. Last Dose: lutein-zeaxanthin (lutein-zeaxanthin 20 mg-4 mg oral capsule) 1 Capsules Oral (given by mouth) every day. with food. Last Dose: mirabegron (Myrbetriq 50 mg oral tablet, extended release) 1 Tabs Oral (given by mouth) every day. do not crush or chew. Last Dose: trospium (trospium 20 mg oral tablet) 1 Tabs Oral (given by mouth) 2 times a day. Last Dose: These Medications Were Removed and Should No Longer Be Taken etodolac (etodolac 500 mg oral tablet) 1 Tabs Oral (given by mouth) 2 times a day as needed as needed for arthritis. Stop Taking Reason: Physician Request Patient Discharge Condition Stable Discharge Disposition intermediate facility Objective Physical Exam General: AAOx3 no acute distress pleasantly confused at times Eye: Normal conjunctiva. HENT: Normocephalic, moist oral mucosa, no scleral icterus. Neck: Supple, non-tender, no lymphadenopathy. Lungs: Clear to auscultation, no rales rhonch or wheeze Heart: (more content not included)... [facility] 02-25-2025 Note OT evaluation hold. Patient on active bedrest in AM. OT to see when able. Electronically signed by Meme Christensen 02/25/25 12:00 EDT [facility] 02-24-2025 Note Operative Report DATE OF PROCEDURE: 02/24/2025 PREOPERATIVE DIAGNOSES: 1. Bilateral foot drops 2. Prior L3-S1 decompression and L4-S1 fusion followed by HW removal 3. L2-S1 degenerative disc disease with discogenic back pain and leg pain 4. L2-S1 lumbar stenosis with radiculopathy 5. L3-4 synovial cyst 6. Spinal cord stimulator and battery implant, nonfunctioning POSTOPERATIVE DIAGNOSES: 1. Bilateral foot drops 2. Prior L3-S1 decompression and L4-S1 fusion followed by HW removal 3. L2-5 degenerative disc disease with discogenic back pain and leg pain 4. L2-5 lumbar stenosis with radiculopathy 5. L3-4 synovial cyst and disc hernation 6. Spinal cord stimulator and battery implant, nonfunctioning OPERATION PERFORMED: 1. L2-5 bilateral laminectomy, revision decompression L4-5, partial medial facetectomies and foraminotomies of L2, L3, L4, L5 nerve roots along with total facetectomy at L3-4 for complete decompression of the L3 nerve roots along with right L3-4 microdiscectomy 2. L2-5 posterior spinal fusion. 3. L2-5 posterior spinal instrumentation, Cortera, Xtant instrumentation 4. Use of local autograft bone 5. Spinal cord stimulator and battery removal. SURGEON: Anita Schmid MD MAGNETO ELECTRICIAN: RAMONITA Quarles PA-C assisted throughout the procedure with positioning, draping, retraction, wound closure and dressing application. ANESTHESIA: General. INDICATIONS: This is a 79-year-old male who is status post L3-S1 decompression, L4-S1 fusion followed later by L4-S1 hardware removal with refractory back and leg pain with bilateral foot drops from lumbar stenosis and degenerative disc disease from L2-5. Patient had failed full conservative therapy including medication management, physical therapy, and epidural steroid injections. Due to the persistence of symptoms and reduction in the ADLs, patient elected surgical treatment. Patient, therefore, understood indications for the surgery as well as its risks, benefits, and alternatives. These risks include but are not limited to paralysis, infection, hematoma, dural tear, nerve root injury, nonunion, DVT/PE, AR, stroke, etc. All questions were answered. Informed consent was obtained. OPERATIVE PROCEDURE: The patient was taken to the operating room by the Anesthesiology Service and had satisfactory general anesthesia. A first-generation cephalosporin was given within 1 hour of surgical incision. 2 gm of cefazolin was given IV. Venous thromboembolic prophylaxis was performed with sequential devices. A barker was placed using standard sterile technique. The patient was then positioned prone on a standard OSI frame with the abdomen hanging free and all bony prominences well padded. The low back was then prepped and draped in its entirety in the usual sterile fashion. Before incision, a formal time-out was taken per protocol. We next took a midline longitudinal approach and performed subperiosteal dissection out to the tips of the transverse processes of L2, L3, L4, L5. Intraoperative radiopgrahic localization of level was confirmed. We then began the laminectomy as well as decompression by removal of the spinous process of L2 and L3. Leksell and microcurettes were used to remove scar tissue adhered to the dura from his prior operation at L4-5. We entered the spinal canal, resecting the ligamentum flavum in its entirety over this region. Partial medial facetectomy was then performed with an osteotome to get lateral to the facet overhang, but just medial to the pedicles and nerve roots. Kerrison's were then used to perform foraminotomies of the L2, L3, L4, L5 nerve roots bilaterally. In order to get further lateral to the bilateral L3 nerve root, total facetectomy was then performed at L3-4. In this way, the bilateral L3 nerve root was completely visualized and foraminized. In this way, we completed decompression at L2-3, L3-4, L4-5 with foraminotomies of the L2, L3, L4, L5 nerve roots bilaterally. We then mobilized the right L4 nerve root over a large contained disc herniation. Hemostasis was achieved over the disc space. Variety of curettes and pituitary was used to remove the large contained disc herniation. Once this was done, we palpated medially and there were no other loose fragments to be removed. There was excellent excursion of the right L4 nerve root both medially and laterally without tension. This thereby completed our microdiscectomy at L3-4 on the right. A durotomy occurred along the right at L3-4 due to scarring from his prior surgery. This was tightly repaired using a 5-0 Prolene and scar tissue patch. Water tight seal achieved. Satisfied with this, we then turned our attention to perform spinal instrumentation and posterolateral fusion. Using anatomic landmarks and guided by direct visualization of the pedicles from within the canal, pedicle screws were placed bilaterally at L2, L4, L5 and on the left at L3. All the screws were completely interosseous as determined by bony (more content not included)... [facility] 02-23-2025 Note Chief Complaint Back pain History of Present Illness The patient is a 79-year-old male with complaints of constant low back pain. No radicular complaints but chronic neuropathy in the bilateral feet. Patient with a 8-12 month history of bilateral foot drops and wears AFO braces. He is status post L4-S1 PSF done with Dr. Ang Rocha. He then had a HW removal and L3-4 decompression in 2018 at [place] [address] Larry. He then had a SCS and battery done Aug 2024 that is no longer functioning. Current VAS score 6/10. Activities that aggravate the pain include standing, walking. He denies activities that help relieve the pain. Modifying factors include medication management, PT, lumbar injections and lumbar RFA. These have provided really no relief. PCP: Devang Hall, DO Review of Systems Constitutional: No fevers, chills Respiratory: No shortness of breath, cough Cardiovascular: No chest pain, palpitations Gastrointestinal: No nausea, vomiting, incontinence Genitourinary: No dysuria or incontinence Musculoskeletal: (+) back pain, no leg pain Neurologic: (+) neuropathy Psychiatric: No anxiety, depression Physical Exam VITAL SIGNS: Ht 6'4 General: Alert and oriented, well nourished, no acute distress. Slow, unsteady gait, using walker Head: Atraumatic, normocephalic Lungs: No respiratory distress. CTA bilaterally, no wheezes Heart: RRR, no murmur Abdomen: Soft, non-tender, non-distended, normal bowel sounds Musculoskeletal: Limited lumbar ROM. TTP lumbar spine. 5/5 muscle strength bilateral LE except 0/5 right TA and EHL and 1-2/5 left TA and EHL Skin: well-healed lumbar incision Neurologic: Awake, alert, and oriented X3, sensory decreased to touch bilateral feet Psychiatric: Cooperative, appropriate mood and affect Additional Vitals No qualifying data available. Assessment/Plan 1. Bilateral foot drops 2. Prior L3-S1 decompression and L4-S1 fusion followed by HW removal, L3-4 decompression 3. L2-S1 degenerative disc disease with stenosis & radiculopathy 4. L3-4 synovial cyst Plan: L2-S1 decompression and fusion and spinal cord stimulator/battery removal. Problem List/Past Medical History Ongoing Arthritis Back pain Foot drop, bilateral Gout Hypertension OAB (overactive bladder) Swelling of both lower extremities Urinary incontinence Historical No qualifying data Procedure/Surgical History Cataract extraction REMOVAL OF TONSILS (2013) Spine osteoarthritis (2015) Inguinal hernia on rt side (2015) Spine orthopedic surgery service (2016) Spine orthopedic surgery (2018) Knee replacement (2020) Medications Inpatient No active inpatient medications Home allopurinol 300 mg oral tablet, 300 mg= 1 tabs, Oral, Daily amLODIPine 5 mg oral tablet, Oral, BID aspirin 81 mg oral delayed release tablet, 81 mg= 1 tabs, Oral, Daily calcium (as carbonate)-vitamin D 600 mg-62.5 mcg (2500 intl units) oral capsule, 2 caps, Oral, Daily etodolac 500 mg oral tablet, 500 mg= 1 tabs, Oral, BID, PRN hydroCHLOROthiazide 25 mg oral tablet, 25 mg= 1 tabs, Oral, Daily Klor-Con M20 oral tablet, extended release, 20 mEq= 1 tabs, Oral, Daily Lipitor 40 mg oral tablet, 40 mg= 1 tabs, Oral, HS (at bedtime) losartan 25 mg oral tablet, 25 mg= 1 tabs, Oral, Daily lutein-zeaxanthin 20 mg-4 mg oral capsule, 1 caps, Oral, Daily, with food Myrbetriq 50 mg oral tablet, extended release, 50 mg= 1 tabs, Oral, Daily, do not crush or chew trospium 20 mg oral tablet, 20 mg= 1 tabs, Oral, BID Vitamin B12 1000 mcg oral tablet, 1000 mcg= 1 tabs, Oral, Daily Vitamin C 1000 mg oral tablet, 1000 mg= 1 tabs, Oral, Daily Allergies HYDROcodone (Hallucinations) oxyCODONE (Hallucinations) Social History Alcohol Current, Liquor, Daily Employment/School Retired Exercise Exercise duration: 0. Home/Environment Lives with Spouse. Home equipment: Walker/Cane. 1 CAT Nutrition/Health Regular, Caffeine intake amount: 2 CUPS COFFE /DAY. Sleeping concerns: No. Substance Abuse Denies All Tobacco Former smoker, quit more than 5 years ago Use:. Lab Results Microbiology - Current Encounter No qualifying data available. Diagnostic Results MRI Lumbar Spine dated 01/12/2025 done at [place] Electronically signed by Christian Rae PA-C 02/23/25 21:27 EDT [facility] 01-28-2025 History of Present illness Narrative Chief [...] angioplasty involving the right coronary artery in 2018. He has had no recurrent symptoms since [...] Scribe Attestation By signing my name below, ILora LPN, Scribe attest that this documentation has [...] discussion and plan. documented in this encounter [facility] Work Phone: 01-28-2025 Instructions Lora Torres LPN [...] dietary changes Provided instructions on exercise. Ridge Rolnad is clear for surgery from a cardiac standpoint 6 months documented in this encounter [facility] Work Phone: 11-12-2024 History of Present illness [...] an appointment with Dr. Mcdonald at the [facility] for orthopedic spine consult. We'll see him [...] requiring urgent evaluation. documented in this encounter [facility] 09-24-2024 Evaluation + Plan note Extrac yina [...] will provide further education and contact the [employer] representatives for additional support. He rates his [...] the remote, we will follow-up with the [employer] folks for further education -Will schedule right genicular [...] with any questions or concerns that arise. [facility] 11-20-2024 NoteConsultation Note Patient is presenting with [...] will provide further education and contact the [employer] representatives for additionalsupport. He rates his back [...] the remote, we will follow-up with the [employer] folbarron for further education -Will schedule right genicular [...] call with any questions or concerns that arise.[facility] CenterComment on above:Result Comment: Electronically Signed By: Bert Huang DO\.br\Date and Time Signed: 09/24/24 09:48 [id number] Evaluation + Plan noteExtracted from: Title:Pain Managment [...] will work with the spinal cord stimulator rental representative and follow-up in a few weeks for reevaluation. He would like to restart physical therapy. Restrictions were discussed. Showering and wound care was discussed. Follow-up as above mention. ZACARIAS score: 48%. Future Appointments Appointment Date:09/24/2024 08:45:00 AM Scheduled Provider:Bert Huang DO Location:.[facility] Appointment Type:Pain Management - Follow Up (FT) [facility] 10-23-2024 NoteConsultation Note Patient: RIDGE ROLAND Age: [...] a reprogramming with the spinal cord stimulator rental representative. He has some pain that he [...] q12hr, # 20 cap(s), Refills(s) 0, Pharmacy: [facility]/pharmacy #[id number], 193, cm, 08/19/24 7:28:00 EDT, [...] list: All Problems Hypercholesterolemia / SNOMED CT 12846862 / Confirmed Hernia, inguinal, right / SNOMED CT 544225521 / Confirmed BPH with urinary obstruction / SNOMED CT 6765695718 / Confirmed Elevated PSA / SNOMED CT 5860309981 / Confirmed Impotence / SNOMED CT 7092169509 / Confirmed Urinary frequency / SNOMED CT 208154312 / Confirmed Nocturia / SNOMED CT 898204904 / Confirmed Weak urinary stream / SNOMED CT 846562930 / Confirmed Gross hematuria / SNOMED CT 114098916 / Confirmed Anticoagulated / SNOMED CT 205874001 / Confirmed Urge incontinence / SNOMED CT 445232014 / Confirmed Chronic prostatitis / SNOMED CT 31918905 / Confirmed Dysuria / SNOMED CT 20227127 / Confirmed Urinary retention / SNOMED CT 255365288 / Confirmed BMI 31.0-31.9,adult / SNOMED CT 766632342 / Confirmed Incomplete bladder emptying / SNOMED CT 755045591 / Confirmed Post-void dribbling / SNOMED CT 578903785 / Confirmed Incontinence without sensory awareness / SNOMED CT 0121991170 / Confirmed At risk for falls / SNOMED CT 313685067 / Possible ED (erectile dysfunction) / SNOMED CT 8843610369 / Confirmed Leaking of urine / SNOMED CT 8947073883 / Confirmed Urinary incontinence / SNOMED CT 7077197191 / Confirmed Prostate cancer screening / SNOMED CT 701788377 / Confirmed Resolved: Hypertension / SNOMED CT 4210052394 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 Incision is healing well. A new clean [...] done. He will (more content not included)... [facility] CenterComment on above:Result Comment: Electronically Signed By: Sophie SHIPMAN, Stephenei\.br\Date and Time Signed: 08/27/24 11:19 EDT 08-19-2024 [...] analysis of neurostimulator Anesthesia: MAC Complications: None Steam Plant Operator: research assistant provided Implanted devices: -Neuroreceiver/pulse generator: Vidyo wavewriter alpha 16 -Neuroelectrodes: two avista 50cm [...] the epidural space with confirmation using glass [id number] syringe and lead was threaded at T11/12 [...] wound was irrigated with sterile saline. The EXFO fiction and nonfiction writer prose alpha 16 pulse generator kit was then [...] pocket. Then with the help of the research assistant both wounds were closed in a stepwise [...] 2024 10:38 EDT Correction to above: No captain's assistant was utilized during this case. Closure was performed by myself. Extracted from: Title:ANES Pre-operative Note 2022 Author:Liliana Alcala CRNA Date:08/19/24 Patient: RIDGE ROLAND Age: 78 years Sex: Male : 1945 Associated Diagnoses: None Author: Liliana Alcala CRNA. Preoperative Information Anesthesia Preop Info: Time patient [...] list: All Problems Anticoagulated / SNOMED CT 478725009 / Confirmed At risk for falls / SNOMED CT 083853641 / Possible BMI 31.0-31.9,adult / SNOMED CT 050174589 / Confirmed BPH with urinary obstruction / SNOMED CT 2933987020 / Confirmed Chronic prostatitis / SNOMED CT 62303555 / Confirmed Dysuria / SNOMED CT 81760034 / Confirmed ED (erectile dysfunction) / SNOMED CT 2275604898 / Confirmed Elevated PSA / SNOMED CT 5463677481 / Confirmed Gross hematuria / SNOMED CT 951784517 / Confirmed Hernia, inguinal, right / SNOMED CT 742905921 / Confirmed Hypercholesterolemia / SNOMED CT 92729990 / Confirmed Impotence / SNOMED CT 4920378289 / Confirmed Incomplete bladder emptying / SNOMED CT 799210451 / Confirmed Incontinence without sensory awareness / SNOMED CT 3991237349 / Confirmed Leaking of urine / SNOMED CT 0223276366 / Confirmed Nocturia / SNOMED CT 980887377 / Confirmed Post-void dribbling / SNOMED CT 508621552 / Confirmed Prostate cancer screening / SNOMED CT 485826880 / Confirmed Urge incontinence / SNOMED CT 857215008 / Confirmed Urinary frequency / SNOMED CT 586994991 / Confirmed Urinary incontinence / SNOMED CT 3947696501 / Confirmed Urinary retention / SNOMED CT 546447111 / Confirmed Weak urinary stream / SNOMED CT 797880372 / Confirmed Resolved: Hypertension / SNOMED CT 0218803977 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 Procedure history: Spinal Cord Stimulator Trial ([id number]) on 06/24/2024 at 78 Years. Comments: 07/02/2024 8:58 Marifer Alegre 60% relief Injection of sacroiliac joint using fluoroscopic guidance (6991735371) on 01/09/2024 at 78 Years. Comments: 01/25/2024 13:34 Azra Fitzgerald RN 90% relief for 4 hrs Radiofrequency ablation of nerve root of lumbar spine using fluoroscopic guidance ([id number]) on 10/08/2023 at 78 Years. Comments: 11/09/2023 11:23 Savannah Paredes RN Bilateral L3/4+L4/5- no relief Biliateral L3/4, L4/5 MBB ([id number]) on 09/04/2023 at 77 Years. Comments: 09/14/2023 7:53 Tomasa Abdullahi RN Bilateral L3/4, L4/5 MBB-80% relief for 1 day Bilateral L3/L4 L4/L5 MBB ([id number]) on 08/07/2023 at 77 Years. Comments: 08/28/2023 7:57 Sharee Jama RN L3/L4 L4/L5 MBB 85% Relief x 4 hours Caudal epidural ([id number]) on 05/29/2023 at 77 Years. Comments: 06/18/2023 10:04 Sharee Jama RN Caudal john 50% relief L3/4 Medial Branch Blocks ([id number]) on 05/01/2023 at 77 Years. Comments: 05/11/2023 9:48 EDT - Gerry JENNINGS, Savannah Ceballos bilateral 75% relief for 2 hours Injection of facet joint using fluoroscopic guidance (4502836301) on 03/12/2023 at 77 Years. Comments: 03/19/2023 9:18 EDT Omari Sierra RN, Myranda pt changed amt of relief to 80% x 4 hr. 03/19/2023 8:54 AMEENA - Myranda Sierra RN bilat L3/4 MBB- 50% relief x 4 hr Cysto/Botox 100 units ([id number]) on 05/11/2022 at 76 Years. Blepharoplasty ([id number]) on 02/07/2021 at 75 Years. Cystourethroscopy with dilation of urethral stricture ([id number]) on 12/02/2020 at 75 Years. Right eye cataract extraction and insertion of intraocular lens ([id number]) on 11/02/2020 at 75 Years. TURP - Transurethral resection of prostate ([id number]) on 04/28/2020 at 74 Years. Cystourethroscopy with dilation of urethral stricture (937455056) on 12/08/2019 at 74 Years. back surgery on 10/16/2019 at 74 Years. Comments: 12/02/2019 9:22 Marine Roman 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3 Placement of stent in cardiac conduit ([id number]) on 06/16/2019 at 73 Years. inguinal hernia repair in 2018 at 72 Years. TURP - Transurethral resection of prostate (209950082) on 07/12/2016 at 70 Years. Cystoscopy ([id number]) on 06/23/2016 at 70 Years. Evolve laser of prostate ([id number]) on 03/14/2013 at 67 Years. Urodynamics ([id number]) on 02/13/2013 at 67 Years. Back (147967847). Arthroscopy of knee joint (603444491). CE - Cataract extraction (1318152444). Release of trigger finger (378728860). Social History Social & Psychosocial Habits Alcohol 08/12/2024 Type: Liquor Frequency: 3-5 times per week 08/12/2024 Use: Current Frequency: Daily 08/12/2024 Use: Current Frequency: Daily Comment: 1-2 shot per day - 03/14/2024 09:48 - Tomasa Kelly RN Substance Abuse 08/12/2024isk Assessment: Denies Substance Abuse [...] adequate air exchange. Cardiovascular: Regular rhythm. Plan [employer] (ASA) physical status classification: Class III. Anesthetic Preoperative Plan: Anesthesia General. Addendum by Oseas Alcala CRNA on August 19, 2024 7:42 EDT Change title of note to progress note Future Appointments Appointment Date:08/27/2024 11:15:00 AM Scheduled Provider:Stephenie Barrios PA-C Location:.[facility] Appointment Type:Pain Management - Follow Up (FT) [facility] 10-15-2024 NoteProgress Note-Physician Patient: RIDGE ROLAND Age: 78 years Sex: Male : 1945 Associated Diagnoses: None Author: Liliana Alcala CRNA Postoperative Information Postoperative disposition: Postoperative disposition: Home. Optimetrix number: Optimetrix number [id number]. Anesthetic utilized: General. Health Status Allergies: Allergic [...] Blood Pressure 62 mm (more content not included)...[facility] CenterComment on above:Result Comment: Electronically Signed By: Liliana Alcala CRNA\.br\Date and Time Signed: 08/19/24 10:25 [id number] Note Progress Note-Physician Patient: RIDGE ROLAND Age: [...] list: All Problems Anticoagulated / SNOMED CT 481305883 / Confirmed At risk for falls / SNOMED CT 563922008 / Possible BMI 31.0-31.9,adult / SNOMED CT 931950779 / Confirmed BPH with urinary obstruction / SNOMED CT 3184625247 / Confirmed Chronic prostatitis / SNOMED CT 83107215 / Confirmed Dysuria / SNOMED CT 26432232 / Confirmed ED (erectile dysfunction) / SNOMED CT 3100600001 / Confirmed Elevated PSA / SNOMED CT 1678149627 / Confirmed Gross hematuria / SNOMED CT 868354187 / Confirmed Hernia, inguinal, right / SNOMED CT 249593920 / Confirmed Hypercholesterolemia / SNOMED CT 98246176 / Confirmed Impotence / SNOMED CT 3424320230 / Confirmed Incomplete bladder emptying / SNOMED CT 961524588 / Confirmed Incontinence without sensory awareness / SNOMED CT 3928886789 / Confirmed Leaking of urine / SNOMED CT 6765338653 / Confirmed Nocturia / SNOMED CT 914265548 / Confirmed Post-void dribbling / SNOMED CT 296521241 / Confirmed Prostate cancer screening / SNOMED CT 869292068 / Confirmed Urge incontinence / SNOMED CT 314283374 / Confirmed Urinary frequency / SNOMED CT 408966668 / Confirmed Urinary incontinence / SNOMED CT 8876676868 / Confirmed Urinary retention / SNOMED CT 285229807 / Confirmed Weak urinary stream / SNOMED CT 780593426 / Confirmed Resolved: Hypertension / SNOMED CT 8350584937 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 Pt. Reports [...] to be instructed in home exercise program. Prison Goals: To be met in 10 weeks [...] Please sign below. Date: documented in this encounterSullivan County Memorial [id number] History of Present illness Narrative* Ramírez Paez, - 07/15/2024 9:00 AM EDT Images from the original note were not included. No chief complaint on file. Subjective Ridge Collins Asuncion, 78 y.o., male Ridge is here for [...] management for his back- Dr. Huang at [facility]. Review of Systems Constitutional: Negative for appetite [...] reflexes are 0 and symmetric throughout. Coordination: Uozpce-fk-rgsa testing and rapid alternating movements are normal Gait: Patient ambulates with a walker Review and summary of old records: MRI of the cervical spine without contrast on 05/27/2024: Multilevel moderate to marked foraminal narrowing with few levels of moderate canal narrowing and gamz-pn-gkspvvaj disc bulging with facet arthropathy. CT of [...] He has previously had EMG analysis in [place]. He is currently undergoing physical therapy and [...] plan, and return instructions documented in this [facility]09-03-2024 Telephone encounter Note* Telephone Encounter - Ulices Esquivel NP - 07/08/2024 10:44 AM EDT Allergies reviewed. Rx sent to pharmacy. [facility] HospitalMduetqszis10-84-6460 Miscellaneous Notes* Telephone Encounter - Ulices Esquivel NP - 07/08/2024 10:44 AM EDT Allergies reviewed. Rx sent to pharmacy. * Telephone Encounter - Tomasa Posadas - 07/08/2024 10:22 AM EDT Patient's called stating Ridge is having teeth cleaned 07/15/24 and needs RX sent to [facility] pharmacy is [place]. Please advise. documented in this encounterSullivan County Memorial HospitalSvsaheiomn45-93-6543 Telephone encounter Note* Telephone Encounter - Tomasa Posadas - 07/08/2024 10:22 AM EDT Patient's called stating Ridge is having teeth cleaned 07/15/24 and needs RX sent to [facility] pharmacy is [place]. Please advise. [facility] HospitalIxdnclrzzr79-12-2703 Evaluation + Plan noteExtracted from: Title:Pain Managment [...] from our services. ZACARIAS score: 42 %. [facility] 08-28-2024 NoteConsultation Note Patient: RIDGE ROLAND Age: 78 [...] list: All Problems Hypercholesterolemia / SNOMED CT 13112651 / Confirmed Hernia, inguinal, right / SNOMED CT 370858584 / Confirmed BPH with urinary obstruction / SNOMED CT 1198709768 / Confirmed Elevated PSA / SNOMED CT 5095033859 / Confirmed Impotence / SNOMED CT 6727803210 / Confirmed Urinary frequency / SNOMED CT 064883975 / Confirmed Nocturia / SNOMED CT 188126324 / Confirmed Weak urinary stream / SNOMED CT 069580797 / Confirmed Gross hematuria / SNOMED CT 200820772 / Confirmed Anticoagulated / SNOMED CT 525134313 / Confirmed Urge incontinence / SNOMED CT 477587135 / Confirmed Chronic prostatitis / SNOMED CT 38621426 / Confirmed Dysuria / SNOMED CT 91357034 / Confirmed Urinary retention / SNOMED CT 661849831 / Confirmed BMI 31.0-31.9,adult / SNOMED CT 668995505 / Confirmed Incomplete bladder emptying / SNOMED CT 470048384 / Confirmed Post-void dribbling / SNOMED CT 265839053 / Confirmed Incontinence without sensory awareness / SNOMED CT 1665201999 / Confirmed At risk for falls / SNOMED CT 094892253 / Possible ED (erectile dysfunction) / SNOMED CT 7449532204 / Confirmed Leaking of urine / SNOMED CT 7615226589 / Confirmed Urinary incontinence / SNOMED CT 0865225264 / Confirmed Prostate cancer screening / SNOMED CT 957210212 / Confirmed Resolved: Hypertension / SNOMED CT 2758397768 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 Neurologic: Alert, Oriented. Psychiatric: Cooperative, Appropriate mood [...] medications. He had a (more content not included)...[facility] CenterComment on above:Result Comment: Electronically Signed By: Stephenie Barrios PA-C\.br\Date and Time Signed: 07/02/24 09:36 [id number] NoteProgress Note-Physician Patient: RIDGE ROLAND Age: 78 [...] Problems Leaking of urine / SNOMED CT 5646374181 / Confirmed Urinary incontinence / SNOMED CT 8429498726 / Confirmed Urge incontinence / SNOMED CT 946887667 / Confirmed Hernia, inguinal, right / SNOMED CT 721557269 / Confirmed Urinary retention / SNOMED CT 692081220 / Confirmed Elevated PSA / SNOMED CT 4514695008 / Confirmed Post-void dribbling / SNOMED CT 231157604 / Confirmed Weak urinary stream / SNOMED CT 202925290 / Confirmed Prostate cancer screening / SNOMED CT 331792036 / Confirmed Nocturia / SNOMED CT 646999916 / Confirmed Urinary frequency / SNOMED CT 486140501 / Confirmed Incontinence without sensory awareness / SNOMED CT 1926138336 / Confirmed Impotence / SNOMED CT 2469052529 / Confirmed Hypercholesterolemia / SNOMED CT 54287493 / Confirmed Gross hematuria / SNOMED CT 214392042 / Confirmed Incomplete bladder emptying / SNOMED CT 513560989 / Confirmed ED (erectile dysfunction) / SNOMED CT 7649274062 / Confirmed Dysuria / SNOMED CT 73380627 / Confirmed Anticoagulated / SNOMED CT 858062860 / Confirmed Chronic prostatitis / SNOMED CT 91572834 / Confirmed BMI 31.0-31.9,adult / SNOMED CT 370808256 / Confirmed BPH with urinary obstruction / SNOMED CT 7384008657 / Confirmed At risk for falls / [facility] / Possible 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 Comments: 01/25/2024 13:34 Azra Fitzgerald RN 90% relief for 4 hrs Radiofrequency ablation of nerve root of lumbar spine using fluoroscopic guidance ([id number]) on 10/08/2023 at 78 Years. Comments: 11/09/2023 11:23 Savannah Paredes RN Bilateral L3/4+L4/5- no relief Biliateral L3/4, L4/5 MBB (9425849292) on 09/04/2023 at 77 Years. Comments: 09/14/2023 7:53 Tomasa Abdullahi RN Bilateral L3/4, L4/5 MBB-80% relief for 1 day Bilateral L3/L4 L4/L5 MBB ([id number]) on 08/07/2023 at 77 Years. Comments: 08/28/2023 7:57 Sharee Jama RN BL L3/L4 L4/L5 MBB 85% Relief x 4 hours Caudal epidural ([id number]) on 05/29/2023 at 77 Years. Comments: 06/18/2023 10:04 Sharee Jama RN Caudal john 50% relief L3/4 Medial Branch Blocks ([id number]) on 05/01/2023 at 77 Years. Comments: 05/11/2023 9:48 Savannah Mari RN bilateral 75% relief for 2 hours Injection of facet joint using fluoroscopic guidance (2132320688) on 03/12/2023 at 77 Years. Comments: 03/19/2023 9:18 Myranda Butler RN, pt changed amt of relief to 80% x 4 hr. 03/19/2023 8:54 Myranda Butler RNat L3/4 MBB- 50% relief x 4 hr Cysto/Botox 100 units ([id number]) on 05/11/2022 at 76 Years. Blepharoplasty (636127349) on 02/07/2021 at 75 Years. Cystourethroscopy with dilation of urethral stricture (339601661) on 12/02/2020 at 75 Years. Right eye cataract extraction and insertion of intraocular lens (0734699347) on 11/02/2020 at 75 Years. TURP - Transurethral resection of prostate (480181084) on 04/28/2020 at 74 Years. Cystourethroscopy with dilation of urethral stricture (603694736) on 12/08/2019 at 74 Years. back surgery on 10/16/2019 at 74 Years. Comments: 12/02/2019 9:22 EST - Marine Dempsey M 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3 Placement of stent in cardiac conduit ([id number]) on 06/16/2019 at 73 Years. inguinal hernia repair in 2018 at 72 Years. TURP - Transurethral resection of prostate ([id number]) on 07/12/2016 at 70 Years. Cystoscopy (37421150) on 06/23/2016 at 70 Years. Evolve laser of prostate (889356191) on 03/14/2013 at 67 Years. Urodynamics (166661608) on 02/13/2013 at 67 Years. Back (383032640). Arthroscopy of knee joint (327613129). CE - Cataract extraction (0212030604). R (more content not included)...[facility] CenterComment on above: Result Comment: Electronically Signed By: Gokul Escalera Jr, DO\.br\Date and Time Signed: 06/26/24 07:45 [id number] NoteProgress Note-Physician Patient: RIDGE ROLAND Age: 78 [...] Discharge when meets criteria ( To home ).[facility] CenterComment on above:Result Comment: Electronically Signed By: Gokul Escalera Jr, DO\.br\Date and Time Signed: 06/26/24 07:45 EDT 06-24-2024 Evaluation + Plan noteExtracted from: Title:Spinal cord stimulator trial Author:Bert Huang DO Date:06/24/24 Diagnosis: Lumbar postlamine ctomy pain syndrome, M96.1. Chronic pain syndrome G89.29. Procedure: Spinal cord stimulator trial under fluoroscopic guidance with two 16 contact Infinion leads from [employer] and 2 click anchors, 71147. Analyze neurostimulator complex, 55891. Anesthesia: MAC Complications: None Description: After informed [...] the epidural space with confirmation using glass dgzk-cw-mmsfjnrnip syringe and lead was threaded at T12/L1. [...] Date:07/02/2024 08:45:00 AM Scheduled Provider:Stephenie Barrios PA-C Location:.[facility] Appointment Type:Pain Management - Follow Up (FT) [facility] 08-08-2024 Hospital Discharge instructions Patient Education 06/12/2024 [...] stimulation). ?For women, using a medical assistant dermatology to prevent urine leaks. This is a [...] right after experiencing incontinence. General instructions Take gjpc-sug-rcftxyd and prescription medicines only as told by [...] important. Where to find more information National [place] of Diabetes and Digestive and Kidney Diseases: www.niddk.nih.gov [employer]: www.urologyhealth.org Contact a health care [...] provider. Document Revised: 05/27/2021 Document Reviewed: 05/27/2021 [employer] Patient Education 2022 [employer]oom. Follow Up Care 05/23/2024 09:29:30 With:NINA SHIPMAN, ALANIS Bustillo, URL Address: [address] [place], [place] [address]dg. [place] [address] When: Unknown Comments:MARCO ANTONION [facility] 08-08-2024 NotePatient Education Urology Urinary Incontinence Urinary [...] ? For women, using a medical assistant dermatology to prevent urine leaks. This is a [...] that can protect the (more content not included)...[facility]07-18-[facility] History of Present illness Narrative* [...] Scribe Attestation By signing my name below, ILora LPN, Scribe attest that this documentation has been prepared under the direction and in the presence of Marisol Connors MD. Provider Attestation - Scribe documentation All medical record entries made by the Scribe were at my direction and personally dictated by me. Ihave reviewed the chart and agree that the record accurately reflects my personal performance of the history, physical exam, discussion and plan. documented in this [facility] Work Phone: 1(473) 518-633807-18-2024 Instructions* Patient Instructions* Lora Torres LPN - [...] proceed with back stimulator documented in this [facility] Work Phone: 1(346) 568-407706-28-2024 Evaluation + Plan noteExtracted from: Title:Pain Managment [...] authorization has been obtained ZACARIAS score: 56%. [facility]06-28-2024 NoteConsultation Note Patient: RIDGE ROLAND Age: 78 [...] hrs., # 15 tab(s), Refills(s) 3, Pharmacy: [facility]/pharmacy #[id number], 193, cm, 08/31/22 9:11:00 EDT, Height/Length Dosing, 114.5, kg, 08/31/22 9:11:00 EDT, Weight Dosing... amitriptyline 10 mg Tab: 10 mg = 1 tab(s), Oral, Once a day (at bedtime), X 30 day(s), # 30 tab(s),Refills(s) 1, Pharmacy: [facility]/pharmacy #[id number], 193, cm, 03/14/24 9:55:00 EDT, Height/Length Dosing, 104.5, kg, 03/14/24 9:55:00 EDT, Weight Dosing amitriptyline 25 mg Tab: 25 mg = 1 tab(s), Oral, Once a day (at bedtime), X 30 day(s), # 30 tab(s),Refills(s) 1, [id number], 193, cm, 05/02/24 10:29:00 EDT, Height/Length Dosing, 104.5, kg, 03/14/24 9:55:00 EDT, Weight Dosing pregabalin 25 mg Cap: 25 mg = 1 cap(s), Oral, BID, # 60 cap(s), Refills(s) 2, [id number], 193, cm, 11/09/23 11:29:00 EST, Height/Length [...] list: All Problems Hypercholesterolemia / SNOMED CT 01912695 / Confirmed Hernia, inguinal, right / SNOMED CT 947871886 / Confirmed BPH with urinary obstruction / SNOMED CT 7876742889 / Confirmed Elevated PSA / SNOMED CT 3008328004 / Confirmed Impotence / SNOMED CT 2415993353 / Confirmed Urinary frequency / SNOMED CT 929492330 / Confirmed Nocturia / SNOMED CT 988636880 / Confirmed Weak urinary stream / SNOMED CT 824991225 / Confirmed Gross hematuria / SNOMED CT 096351993 / Confirmed Anticoagulated / SNOMED CT 801078838 / Confirmed Urge incontinence / SNOMED CT 248690975 / Confirmed Chronic prostatitis / SNOMED CT 42521635 / Confirmed Dysuria / SNOMED CT 88877336 / Confirmed Urinary retention / SNOMED CT 002060515 / Confirmed BMI 31.0-31.9,adult / SNOMED CT 368663775 / Confirmed Incomplete bladder emptying / SNOMED CT 249835001 / Confirmed Post-void dribbling / SNOMED CT 249321038 / Confirmed Incontinence without sensory awareness / SNOMED CT 1571708873 / Confirmed At risk for falls / SNOMED CT 021903584 / Possible ED (erectile dysfunction) / SNOMED CT 6541023296 / Confirmed Leaking of urine / SNOMED CT 9589900156 / Confirmed Urinary incontinence / SNOMED CT 7160372205 / Confirmed Prostate cancer screening / SNOMED CT 672745825 / Confirmed Resolved: Hypertension / SNOMED CT 6774759492 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 Eye: Normal conjunctiva. HENT (more content not included)...[facility] CenterComment on above: Result Comment: Electronically Signed By: Stephenie Barrios PA-C\.br\Date and Time Signed: 05/02/24 10:53 [id number] Evaluation + Plan noteExtracted from: Title:Pain Managment [...] AM Scheduled Provider:Stephenie Barrios PA-C Location:.[facility] Appointment Type:Pain Management - Follow Up (FT) [facility]03-22-2024 Evaluation + Plan noteExtracted from: Title:Pain Managment [...] Date:03/14/2024 09:45:00 AM Scheduled Provider:Stephenie Barrios PA-C Location:[facility] Appointment Type:Pain Management - Follow Up (FT) [facility]03-06-2024 Evaluation + Plan noteExtracted from: Title:Bilateral sacroiliac [...] PM Scheduled Provider:Stephenie Barrios PA-C Location:.[facility] [place] Appointment Type:Pain Management - Follow Up (FT) [facility]03-06-2024 Note [id number] NoteDiagnosis: M46.1, bilateral sacroiliitis Procedure: [...] procedure, and agrees to continue currently prescribed/recommended therapies.[facility] Comment on above:Result Comment: Electronically Signed By: Bert Huang DO.amy\Date and Time Signed: 01/09/24 11:32 [id number] Hospital Discharge instructions Patient Education 12/14/2023 10:59:33 [...] stimulation). ?For women, using a medical assistant dermatology to prevent urine leaks. This is a [...] right after experiencing incontinence. General instructions Take scij-ona-ykebycd and prescription medicines only as told by [...] important. Where to find more information [employer] [place] of Diabetes and Digestive and Kidney Diseases: www.niddk.nih.gov [employer]: www.urologyhealth.org Contact a health care [...] provider. Document Revised: 05/27/2021 Document Reviewed: 05/27/2021 [employer] Patient Education 2022 Zazoom. Follow Up Care 12/07/2023 15:16:05 With:DUC WALTERS, Homero Marie, SHARADL Address: [facility] [address], [place] [phone] When: only if needed [facility] 02-05-2024 Evaluation + Plan noteExtracted from: Title:Pain [...] Date:12/14/2023 09:30:00 AM Scheduled Provider:Homero XAVIER MD Location:[facility] Appointment Type:URO Office Visit [facility]01-10-2024 History of Present illness Narrative* Marisol Connors [...] At [facility] for [facility] 1(169) 129-380101-10-2024 Instructions* Patient Instructions* Steven Wheeler MA - [...] Fall Prevention Education Given [facility] Work Phone: 1(976) 143-321601-05-2024 Evaluation + Plan noteExtracted from: Title:Pain Managment [...] Date:12/10/2023 11:15:00 AM Scheduled Provider:Bib Sanchez MD Location:[facility] Appointment Type:Pain Management - Follow Up (FT) Appointment Date:12/11/2023 01:00:00 PM Scheduled Provider:ALANIS WOOD PA-C Location:[facility] Appointment Type:URO Office Visit [facility]12-19-2023 Evaluation note* Encounter Date Diagnosis Assessment Notes [...] Oct, Fatigue, unspecified type (ICD-10 - R53.83) [facility] Other 12-04-2023 Note [id number]#[id number] 09-14-2023 Evaluation + Plan noteExtracted from: [...] follow-up as above mentioned ZACARIAS score: 28% [facility]10-31-2023 Note [id number]#[id number] 08-07-2023 [id number]:127[facility]07-07-2023 Evaluation + Plan noteExtracted from: [...] clinic sooner if necessary. ZACARIAS score: 42% [facility]06-29-2023 Evaluation note* Encounter Date Diagnosis Assessment Notes Treatment Notes Treatment Clinical Notes Apr, Thyroid cyst (ICD-10 - E04.1) FNA non-diagnostic - 2014, US: stable nodules, no further scans necessary - 04/2023 [facility] Other 05-15-2023 Evaluation + Plan noteExtracted from: [...] clinic sooner if necessary. ZACARIAS score: 48% [facility]04-19-2023 Evaluation note* Encounter Date Diagnosis Assessment Notes Treatment Notes Treatment Clinical Notes Feb, Low back pain, unspecified (ICD-10 - M54.50) [facility] Other 02-27-2023 Evaluation note* Encounter Date Diagnosis [...] R26.89) Dec, Physical deconditioning (ICD-10 - R53.81) [facility]. Other 01-25-2023 Evaluation note* Encounter Date Diagnosis Assessment Notes Treatment Notes Treatment Clinical Notes Nov, Low back pain, unspecified (ICD-10 - M54.50) Nov, Other chronic pain (ICD-10 - G89.29) [facility] Other 01-24-2023 Hospital Discharge instructions Patient Education [...] urethra. Follow these instructions at home: Take rwwt-pvl-wqbutoe and prescription medicines only as told by [...] 10/22/2006 Document Revised: 09/16/2019 Document Reviewed: 11/26/2017 [employer] Patient Education 2019 Zazoom. Follow Up Care 08/31/2022 09:40:03 With:NINA SHIPMAN, ALANIS Bustillo, URL Address: [address] [place] [address] When: Unknown [facility] 07-26-2022 Hospital Discharge instructions Patient Education 05/30/2022 [...] urethra. Follow these instructions at home: Take gzvn-asj-mwzmaeo and prescription medicines only as told by [...] 10/22/2006 Document Revised: 09/16/2019 Document Reviewed: 11/26/2017 [employer] Patient Education 2020 Zazoom. Follow Up Care 05/11/2022 10:39:09 With:Remy Cruz MD, Goldy Collins URO Address: [facility] [address] , [place] [address]- [phone] When:Within 2 Month(s) Comments:PVR [facility] 07-07-2022 Hospital Discharge instructions Patient Education 05/11/2022 [...] [facility] [address], [place] [address]- Business (1) When:4 weeks Comments:PVR with next office visit [facility]06-15-2021 NoteHNO ID: [id number] Author: Alanis Nguyen MD Service: ? Author [...] He had a second opinion with Dr. Quezada([facility]), felt that he did not need the [...] when he tried to get up the trader, tripped over went ramp. He established with [...] EMG and LP results. Repeat EMG in F (Apr 2020) showed moderate sensorimotor polyneuropathy and [...] loss of consciousness, he was brought to [facility] needing stitches. CT c- spine showed degenerative [...] are planning to go back to the [facility]. Current Outpatient Medications Medication Sig Dispense [...] no s (more content not included)... [facility]02-24-2021 NotePatient Outreach (COVAMN) RIDGE ROLAND ([id number]) 1945 M Date Time Provider Department 12/29/20 FELIBERTOS, YARITZA VERDE During your visit today, we recorded the following information about you: Allergies As of Date: 12/29/2020 (No Known Allergies) Date Reviewed: 11/16/2020 Reviewed by: Mauri (Shira) SHIRA Horn - Fully Assessed Order(s):SARS-COVID VACCINE 1ST DOSE APPT [[id number]] Order #: [id number] FUTURE Prescriptions as of 12/29/2020 Sig: CYANOCOBALAMIN [...] (None) Encounter Status:Closed by OSCAR SULLIVAN on 01/03/21[facility] Evaluation + Plan note Future Appointments Appointment Date:05/11/2022 10:00:00 AM Scheduled Provider: Location:[facility] Appointment Type:Urology FT [facility] evaluation + Plan note Future Appointments Appointment Date:05/30/2022 09:30:00 AM Scheduled Provider:Goldy Alberto Jr., MD Location:[facility] note Future Appointments Appointment Date:08/08/2022 08:45:00 AM Scheduled Provider:Goldy Alberto Jr., MD Location:[facility] Appointment Type:URO Office Visit [facility] evaluation + Plan note Future Appointments Appointment Date:01/10/2023 11:00:00 AM Scheduled Provider:ALANIS WOOD PA-C Location:[facility] Appointment Type:URO Office Visit [facility] evaluation + Plan note Future Appointments Appointment Date:03/19/2023 08:30:00 AM Scheduled Provider:Stephenie Barrios PA-C Location:[facility] [place] Appointment Type:Pain Management - [facility] Future Appointments Appointment Date:05/11/2023 10:00:00 AM Scheduled Provider:Stephenie Barrios PA-C Location:[facility] [place] Appointment Type:Pain Management - Follow Up (FT) [facility] + Plan note Future Appointments Appointment Date:08/28/2023 07:45:00 AM Scheduled Provider:Bib Sanchez MD Location:[facility] [place] Appointment Type:Pain Management - Follow Up (FT) [facility] Plan note Future Appointments Appointment Date:11/09/2023 11:15:00 AM Scheduled Provider:Stephenie Barrios PA-C Location:[facility] [place] Appointment Type:Pain Management - Follow Up (FT) [facility] + Plan note Future Appointments Appointment Date:06/17/2024 11:30:00 AM Scheduled Provider:Bert Huang DO Location:[facility] [place] Appointment Type:Pain Management - Nurse Consult (FT) Appointment Date:06/24/2024 08:00:00 AM Scheduled Provider: Location:[facility] Appointment Type:Surgery FT Appointment Date:07/02/2024 08:45:00 AM Scheduled Provider:Stephenie Barrios PA-C Location:[facility] [place] Appointment Type:Pain Management - Follow Up (FT[facility] + Plan note Future Appointments Appointment Date:06/24/2024 08:00:00 AM Scheduled Provider: Location:[facility] Appointment Type:Surgery FT Appointment Date:07/02/2024 08:45:00 AM Scheduled Provider:Stephenie Barrios PA-C Location:[facility] [place] Appointment Type:Pain Management - Follow Up (FT) [facility] evaluation + Plan note Future Appointments Appointment Date:06/24/2024 08:00:00 AM Scheduled Provider: Location:[facility] Appointment Type:Surgery FT Appointment Date:07/02/2024 08:45:00 AM Scheduled Provider:Stephenie Barrios PA-C Location:[facility] [place] Appointment Type:Pain Management - Follow Up (FT) Diagnostic Tests Pending * MRSA Screen 06/17/24 [facility] evaluation + Plan note Future Appointments Appointment Date:08/19/2024 08:00:00 AM Scheduled Provider: Location:[facility] Appointment Type:Surgery FT Appointment Date:08/27/2024 11:15:00 AM Scheduled Provider:Stephenie Barrios PA-C Location:[facility] [place] Appointment Type:Pain Management - Follow Up (FT) Diagnostic Tests Pending * MRSA Screen 08/12/24 [facility] evaluation + Plan note Future Appointments Appointment Date:08/19/2024 08:00:00 AM Scheduled Provider: Location:[facility] Appointment Type:Surgery FT Appointment Date:08/27/2024 11:15:00 AM Scheduled Provider:Stephenie Barrios PA-C Location:[facility] [place] Appointment Type:Pain Management - Follow Up (FT) [facility] evaluvaishali noteNo [facility] [employer] Other [facility] [employer] Other Evaluation note* Diagnosis Arteriosclerosis of coronary artery- Primary Status post coronary angioplasty Postsurgical percutaneous transluminal coronary angioplasty status Dyslipidemia Other and unspecified hyperlipidemia Essential hypertension Unspecified essential hypertension Obesity (BMI 30.0-34.9) At risk for falls Personal history of fall documented in this encounter [facility] Work Phone: Evaluation note* Diagnosis Onset Date Resolution Status Abnormal intentional weight loss acute ASHD (arteriosclerotic heart disease) acute Hypercholesterolemia acute Impaired fasting glucose acu te Memory deficit acute Primary hypertension acute [facility] Work Phone: Evaluation note* Diagnosis Onset Date Resolution Status Impaired fasting glucose acu te Lumbar spondylosis acute Memory deficit acute Primary hypertension acute Abnormal intentional weight loss acute ASHD (arteriosclerotic heart disease) acute Impaired fasting glucose acu te Primary hypertension acute [facility] Work Phone: Evaluation note* Diagnosis Onset Date Resolution Status ASHD (arteriosclerotic heart disease) acute Hypercholesterolemia acute Impaired fasting glucose acu te Lumbar spondylosis acute Polyneuropathy acute Primary hypertension acute Medicare annual wellness visit, subsequent noneactive Screening PSA (prostate specific antigen) noneactive [facility] Work Phone: Evaluation note* Diagnosis Onset [...] spondylosis acute Polyneuropathy acute Primary hypertension acute [facility] Work Phone: Evaluation note* Diagnosis Acute [...] idiopathic peripheral neuropathy documented in this encounter [facility] Work Phone: Evaluation note* Diagnosis Acute pain [...] hip impingement syndrome documented in this encounter [facility] HealthcareEvaluation note* Diagnosis Acute pain of left knee- Primary Poor balance History of fall Personal history of fall Difficulty walking Difficulty in walking Leg weakness, bilateral Muscle weakness (generalized) Foot drop, right foot History of falling Left hip impingement syndrome Right hip impingement syndrome documented in this encounter [facility] HealthcareEvaluation note* Diagnosis Acute pain of left knee- Primary Poor balance History of fall Personal history of fall Difficulty walking Difficulty in walking Leg weakness, bilateral Muscle weakness (generalized) Foot drop, right foot History of falling documented in this encounter [facility] HealthcareEvaluation note* Diagnosis Acute pain of left knee- Primary History of fall Personal history of fall Poor balance Difficulty walking Difficulty in walking Leg weakness, bilateral Muscle weakness (generalized) Foot drop, right foot History of falling Left hip impingement syndrome Right hip impingement syndrome documented in this encounter [facility] HealthcareEvaluation note* Diagnosis Swelling of joint of right knee- Primary Right knee pain, unspecified chronicity documented in this encounter [facility] HealthcareEvaluation note* Diagnosis Pre-operative cardiovascular examination- Primary Arteriosclerosis of coronary artery Essential hypertension Unspecified essential hypertension Dyslipidemia Other and unspecified hyperlipidemia Status post coronary angioplasty Postsurgical percutaneous transluminal coronary angioplasty status Former smoker Personal history of tobacco use, presenting hazards to health BMI 34.0-34.9,adult Obesity, Class I, BMI 30-34.9 documented in this encounter [facility] Work Phone: Evaluation note* Diagnosis Onset Date Resolution Status Admit Date ASHD (arteriosclerotic heart disease) acute February 16, 2025 1:50pm Hypercholesterolemia acute Apri l 2024 1:50pm Impaired fasting glucose acute February 16, 2025 1:50pm Lumbar spondylosis acute February 16, 2025 1:50pm Primary hypertension acute Apri l 2024 1:50pm Preop exam for internal medicine non eactive February 16, 2025 1:50pm [facility] Work Phone: History general Narrative - Reported* Type Description Date Medical History HTN Medical History neuropathy Medical History arthritis Medical History heart stent Medical History cataracts Medical History Gout Medical History high cholesterol Medical History prostate Surgical History heart cath with stent placed Surgical History back surgery x 2 Surgical History hernia repair Hospitalization History see surg hx [facility] Other History general Narrative - Reported* Type [...] eyes Hospitalization History see surgery list [facility] Other [facility] Hospital course Narrative No data available for this section [facility] Hospital Discharge instructions No data available for this section [facility] progress note No data available for this section [facility] reason for referral (narrative)* Consultation (Routine) - Authorized Specialty Diagnoses / Procedures Referred By Jonathan gann Referred To Contact Cardiology Diagnoses Arteriosclerosis of coronary artery Procedures Follow Up In Cardiology Marisol Connors MD [address] [place] [address], [address] [address] Marisol Connors MD [address] [place] [address], [place] [address] Referral ID Status Reason Start Date Expiration Date V isits Requested Visits Authorized [id number] Authorized 11/14/2023 11/13/2024 1 1 [facility] Work Phone: Reason for referral (narrative)* Consultation (Routine) - Authorized Specialty Diagnoses / Procedures Referred By Jonathan gann Referred To Contact Cardiology Diagnoses Arteriosclerosis of coronary artery Procedures Follow Up In Cardiology Marisol Connors MD [address] [facility] [address] [place] [address] Marisol Connors MD [address] [facility] [address] [place] [address] Referral ID Status Reason Start Date Expiration Date V isits Requested Visits Authorized [id number] Authorized 05/22/2024 05/22/2025 1 1 [facility] Work Phone: Reason for visit Narrative* Consultation (Routine) - Authorized Specialty Diagnoses / Procedures Referred By Jonathan t Referred To Contact Physical Therapy Diagnoses Acute pain of left knee Foot drop, right foot History of falling Left hip impingement syndrome Right hip impingement syndrome Procedures RI OFFICE/OUTPATIENT NEW HIGH MDM 60 MINUTES Fatoumata Montes PA [address] [facility] [address] [place] [address] Philip Aldrich, PT [address] [facility] [address] [place] [address] Referral ID Status Reason Start Date Expiration Date Visits Requested Visits Authorized [id number] Authorized Consult and Treat 05/13/2024 11/09/2024 99 99 [facility] Narrative* Consultation (Routine) - Closed Specialty Diagnoses / Procedures Referred By Contac t Referred To Contact Physical Therapy Diagnoses Acute pain of left knee Foot drop, right foot History of falling Left hip impingement syndrome Right hip impingement syndrome Procedures RI OFFICE/OUTPATIENT NEW HIGH MDM 60 MINUTES Fatoumata Montes PA [address] [facility] [address] [place] [address] Philip Aldrich, PT [address] [facility] [address] [place] [address] Referral ID Status Reason Start Date Expiration Date V isits Requested Visits Authorized [id number] Closed Consult and Treat 05/13/2024 11/09/2024 99 [...] peripheral neuropathy limit his daily activities * RIGDE ROLAND is being seen for a 8 [...] 1 Lumbar spondylosis ( M47.816) Referral Organization [facility] Referring Provider First Name Devang Referring Provider Last Name Rafael Referring Provider Specialty Internal Me dicine Referred Organization [facility] Referred Provider Allison Kenyon Referred Address [address] [place], [place],[address] Referred Provider Specialty Neurological Surgery Referral Priority [...] heart disease) Lumbar spondylosis Polyneuropathy Primary hypertension Chief Complaint Admit Date Surg Dr. Luma Aquino/Spinal Fusion February 16, 2025 1:50pm Reason for Visit Admit Date ASHD (arteriosclerotic heart disease) Ap ril 2024 1:50pm Hypercholesterolemia February 16, 2025 1: 50pm Impaired fasting glucose February 16 1:50pm Lumbar spondylosis February 16, 2025 1:5 0pm Primary hypertension February 16, 2025 1: 50pm Preop exam for internal medicine February 032024 1:50pm Additional Source Comments (unrecognized sect ion and content) No Status Records FoundNo Status Records FoundNo Status Records FoundNo Status Records FoundNo Status Records FoundNo Status Records FoundNo Status Records FoundNo Status Records FoundNo Status Records FoundNo Status Records FoundNo Status Records FoundNo Status Records FoundNo Status Records FoundNo Status Records Found INFORMATION SOURCE (unrecogn ized section and content) DATE CREATED AUTHOR 04/23/2018 [facility] DATE CREATED AUTHOR AUTHOR'S ORGANIZ ATION 09/10/2020 [facility] DATE CREATED AUTHOR AUTHOR'S ORGANIZ ATION 12/26/2021 [facility] DATE CREATED AUTHOR AUTHOR'S ORGANIZ ATION 03/11/2023 [facility] DATE CREATED AUTHOR AUTHOR'S ORGANIZ ATION 03/11/2023 [facility] DATE CREATED AUTHOR AUTHOR'S ORGANIZ ATION 03/18/[address] [facility] DATE CREATED AUTHOR AUTHOR'S ORGANIZ ATION 06/19/2024 [facility] DATE CREATED AUTHOR AUTHOR'S ORGANIZ ATION 08/13/2024 [facility] DATE CREATED AUTHOR AUTHOR'S ORGANIZ ATION 09/26/2024 [facility] DATE CREATED AUTHOR AUTHOR'S ORGANIZ ATION 01/29/2025 [facility] DATE CREATED AUTHOR AUTHOR'S ORGANIZ ATION 03/13/2025 [facility] DATE CREATED AUTHOR AUTHOR'S ORGANIZ ATION 04/02/2025 [facility] DATE CREATED AUTHOR AUTHOR'S ORGANIZ ATION 04/02/2025 [facility] DATE CREATED AUTHOR AUTHOR'S ORGANIZ ATION 04/08/2025 [facility] Care Team (unrecognized sect ion and content) Team Status: Active Member Role Status Dates Devang Hall DO Primary Care Provider Active Team Status: Active Member Role Status Dates Devang Hall DO Primary Care Provide r, Attending Provider Active Start: January 26, 2025 Team Status: Inactive Member Role Status Dates Devang Hall DO Primary Care Provide r, Attending Provider Active Start: February 16, 2025 End: February 16, 2025 Team Status: Inactive Member Role Status Dates [...] January 18, 2024 End: January 18, 2024 Desktop Support Technician Relationship Specialty Start Date End Date Devang Hall DO [address] [place] [address] PCP - General Internal Medicine 11/14/23 Team Status: Inactive Member Role Status Teresa Hall DO Attending Provider Active Sta rt: [...] June 13, 2024 End: June 13, 2024 Desktop Support Technician Relationship Specialty Start Date End Date Devang Hall MD [address] [place] [phone] PCP - General Internal Medicine 02/25/24 Desktop Support Technician Relationship Specialty Start Date End Date Devang Hall MD [address] [place] [facility] [address] PCP - General Internal Medicine 02/25/24 Desktop Support Technician Relationship Specialty Start Date End Date Devang Hall MD [address] [place] [facility] [address] PCP - General Internal Medicine 02/25/24 Desktop Support Technician Relationship Specialty Start Date End Date Devang Hall MD [address] [place] [facility] [phone] PCP - General Internal Medicine 02/25/24 Desktop Support Technician Relationship Specialty Start Date End Date Devang Hall MD [address] [facility], [id number] PCP - General Internal Medicine 02/25/24 Desktop Support Technician Relationship Specialty Start Date End Date Devang Hall MD [address] [place] [facility] [phone] PCP - General Internal Medicine 02/25/24 Desktop Support Technician Relationship Specialty Start Date End Date Devang Hall MD [address] [place] [facility] [address] PCP - General Internal Medicine 02/25/24 Desktop Support Technician Relationship Specialty Start Date End Date Devang Hall MD [address] [place] [facility] [phone] PCP - General Internal Medicine 02/25/24 Desktop Support Technician Relationship Specialty Start Date End Date Devang Hall MD [address] [place] [facility] [phone] PCP - General Internal Medicine 02/25/24 Desktop Support Technician Relationship Specialty Start Date End Date Devang Hall MD [address] [place] [facility] [phone] PCP - General Internal Medicine 02/25/24 Desktop Support Technician Relationship Specialty Start Date End Date Devang Hall DO PCP - General Internal Medicine 11/14/23 Desktop Support Technician Relationship Specialty Start Date End Date Devang Hall MD [address] [place] [facility] [phone] PCP - General Internal Medicine 02/25/24 Desktop Support Technician Relationship Specialty Start Date End Date Devang Hall MD [address] [place] [facility] [phone] PCP - General Internal Medicine 02/25/24 Desktop Support Technician Relationship Specialty Start Date End Date Devang Hall MD [address] [place] [facility] [address] PCP - General Internal Medicine 02/25/24 Desktop Support Technician Relationship Specialty Start Date End Date Devang Hall MD [address] [place] [facility] [phone] PCP - General Internal Medicine 02/25/24 Desktop Support Technician Relationship Specialty Start Date End Date Devang Hall MD [address] [place] [facility] [address] PCP - General Internal Medicine 02/25/24 Desktop Support Technician Relationship Specialty Start Date End Date Devang Hall MD [address] [place] [facility] [phone] PCP - General Internal Medicine 02/25/24 Desktop Support Technician Relationship Specialty Start Date End Date Devang Hall MD [address] [place] [facility] [phone] PCP - General Internal Medicine 02/25/24 Desktop Support Technician Relationship Specialty Start Date End Date Devang Hall MD [address] [place] [facility] [address] PCP - General Internal Medicine 02/25/24 Desktop Support Technician Relationship Specialty Start Date End Date Devang Hall MD [address] [facility], [phone] PCP - General Internal Medicine 02/25/24 Desktop Support Technician Relationship Specialty Start Date End Date Devang Hall MD [address] [facility], [phone] PCP - General Internal Medicine 02/25/24 Desktop Support Technician Relationship Specialty Start Date End Date Devang Hall MD [address] [facility], [phone] PCP - General Internal Medicine 02/25/24 Desktop Support Technician Relationship Specialty Start Date End Date Devang Hall DO PCP - General Internal Medicine 11/14/23 Anita Schmid MD [facility] [place] [address] [place] [address] Referring Physician 01/28/25 REASON FOR VISIT (unrecogniz ed section and content) Reason Comments Follow-up 6 month Reason Comments Follow-up 6 months Specialty Diagnoses / Procedures Referred By Contac t Referred To Contact Cardiology Diagnoses Arteriosclerosis of coronary artery Procedures Follow Up In Cardiology Marisol Connors MD [address] [facility] [address], [address] [address] Marisol Connors MD [address] [facility] [address], [address] [address] Referral ID Status Reason Start Date Expiration Date V isits Requested Visits Authorized [id number] Authorized 11/14/2023 11/13/2024 1 1 Reason Onset Date Comments Dentist 07/08/2024 Reason Comments Pain Reason Comments Pre-op Clearance Lumbar fusion-Dr. Mondragon-Scheduled 02/24 Specialty Diagnoses / Procedures Referred By Contac t Referred To Contact Diagnoses Arteriosclerosis of coronary artery Pre-operative cardiovascular examination Procedures ECG 12 Lead Marisol Connors MD [address] [facility] [address], [address] [address] Phone: tel: fax: Referral ID Status Reason Start Date Expiration Date V isits Requested Visits Authorized [id number] Authorized 01/28/2025 01/28/2026 1 1 Goals (unrecognized [...] BE BASED ON THE PRIMARY CLINICAL RECORDS. [facility]. provides no warranty or guarantee of the accuracy or completeness of information in this document.
[2025-04-21 06:02] LABS: Alanine Aminotransferase 24 U/L (16-63); Albumin Level 3.2 g/dL (3.4-5.0); Alkaline Phosphatase 149 U/L (46-116); Anion Gap 10.8; Aspartate Amino Transferase 21 U/L (15-37); BUN Creatinine Ratio 25.5; Bilirubin Total 0.5 mg/dL (0.2-1.0); Calcium 9.2 mg/dL (8.5-10.1); Carbon Dioxide 30.9 mmol/L (21.0-32.0); Chloride 105 mmol/L (98-107); Estimated GFR (African America >60 (>=60 mL/min/1.73m^2); Estimated GFR (Non-African Ame >60 (>=60 mL/min/1.73m^2); Globulin 3.2 g/dL; Glucose 103 mg/dL (74-106); Sodium 144 mmol/L (136-145); Total Protein 6.4 g/dL (6.4-8.2)
[2025-04-21 06:07] LABS: Thyroid Stimulating Hormone 1.516 uIU/mL (0.358-3.740)
[2025-04-21 06:16] LABS: Potassium 2.7 mmol/L (3.5-5.1)
[2025-04-21 07:54] VITALS: BP 135/78; PULSE 73; TEMP 36.7; O2SAT 90
[2025-04-21 08:56] VITALS: BP 120/73; BP 135/78; BP 138/81; PULSE 73; PULSE 77; PULSE 84
--- NOTE | 2025-04-21 09:30 | CM.NOTE ---
Rounds made with Dr. Porter, no discharge today. PT and OT evaluation this AM. Pt will need MRI brain and MRI lumbar spine. Discussed plan of care with pt and . Pt continues with underlying confusion.
[2025-04-21] MEDS: POTASSIUM CHLORIDE 10 MEQ ER TABLET 40 MEQ PO (10:47)
[2025-04-21] MEDS: ASPIRIN 81 MG TABLET.DR PO (10:47)
[2025-04-21] MEDS: POLYETHYLENE GLYCOL 3350 17 GM POWDER PACKET PO (10:48)
[2025-04-21] MEDS: LOSARTAN POTASSIUM 25 MG TABLET PO (10:48)
[2025-04-21] MEDS: BISACODYL 5 MG TABLET 10 MG PO (10:48)
[2025-04-21] MEDS: DOCUSATE SODIUM 100 MG CAPSULE PO (10:48)
[2025-04-21] MEDS: ALLOPURINOL 300 MG TABLET PO (10:48)
[2025-04-21] MEDS: FOLIC ACID/VIT B6/VIT B12 TABLET 1 TAB PO (10:48)
[2025-04-21] MEDS: ACETAMINOPHEN 500 MG TABLET PO (10:48)
--- NOTE | 2025-04-21 10:53 | PM.IMPN1 ---
Progress Note: A&P Assessment and Plan (1) Acute encephalopathy: (2) Generalized weakness: Plan Acute encephalopathy, intermittent confusion episodes, could be metabolic vs toxic (medication induced) Generalized weakness Weakness in LEs Physical debility functional decline Rule out intracranial process Multiple back surgeries in the past (most recent back in February 2025) -CT AP Postoperative changes are noted in the lumbar spine findings consistent with recent laminectomy. Posterior fusion hardware is noted from L2 through L5 with evidence of prior fusion at L5-S1. Degenerative changes are noted in the hips and sacroiliac joints. -Check MRI brain -Check MRI of lumbar spine -TSH and folate WNL -Pt on b12 supplements -Avoid opioids, sedatives -Holding Remeron (new addition to his meds per ) started per PCP. Allow washing period for about 48 hours and reassess mentation. -PT/OT eval -CM to follow for disposition Leg edema DVT ruled out Rule out CHF Hx of CAD with stent -venous doppler B/L negative for DVT -BNP WNL -pending Echo to evaluate LV function -Monitor on tele Abdominal distension due to constipation -Check CT AP noted to have moderate to large amount of constipation and stool burden -Started aggressive Bowel regimen -Replete potassium. Given IV and PO KCL -Monitor for BM Hypokalemia -Replete potassium. Given IV and PO KCL -Recheck K later today, will replete as needed HTN -Controlled -Pt on 3 agents for BP, amlodipine which can cause his leg edema, losartan and HCTZ -Will hold HCTZ given hypokalemia, holding amlodipine given leg edema. BP seems controlled -Will only resume Losartan at this point to maintain normotensive status DVT ppx: Lovenox Diet: as directed Discussed plan of care with patient and his at bedside, all questions answered, they in agreement with plan Exam Narrative Exam Narrative: Patient was evaluated at bedside. Out of bed to chair with assistance of physical therapy. He did require 2 people to put him in the chair. He is alert, awake, oriented to self, place, knows the year and month, not the day or the day of the week. Knew [place] president. Still has some confusion and seeing things. His arrived and noted also that he is still confused. Further information from patient and that he fell backwards last Sunday, pt was crawling on the floor and got up with help of and family members, states he got up and walked, states he has been weak and requiring further assistance a day or so prior bringing him here, but also reports his confusion and hallucination being intermittent at home. Today, pt denies nausea, vomiting, diarrrhea. No BM here so far. New orders as below. Constitutional Vital Signs, click to edit/add: Last Vital Signs Temp 98.1 F 04/21/25 07:54 Pulse 84 04/21/25 08:56 Resp 18 04/21/25 07:54 BP 120/73 04/21/25 08:56 Pulse Ox 90 L 04/21/25 07:54 O2 Del Method Room Air 04/21/25 07:54 Common normals: no apparent distress Orientation/consciousness: Yes awake, Yes oriented to person, Yes oriented to place and Yes confused Other: Still confused and hallucinating. Alert and awake, oriented to self, place, year but not day or date of the day Eye Common normals: PERRL, EOMs intact bilaterally and conjunctivae normal Chest Common normals: inspection of chest normal Respiratory Common normals: normal respiratory effort, no retractions, no use of accessory muscles and clear to auscultation bilaterally Effort & inspection: able to speak in complete sentences Cardio Rate: regular rate Rhythm: regular rhythm Heart sounds: S1 normal and S2 normal GI Other: Distended (constipated). nontender, soft tympanic to percussion Extremity Other: Mild edema in LEs wearning braces on both LEs Neuro Sensorium/orientation: awake, alert, oriented to person, oriented to place and oriented to time (Knows the year and month, not the date of today or day of the week) Other: Still a bit confused. Upper extremities 5/5. LE about 3/5 in R leg, 4/5 in left leg. sensation a bit decreased on R leg below wilson as reported per pt on exam but similar above knees. 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06 H 0.04 H Imm/Tot Granulo (auto) 1.0 H 0.6 H Sodium 144 144 Potassium 3.1 L 2.7 L* Chloride 105 105 Carbon Dioxide 29.0 30.9 Anion Gap 13.1 10.8 BUN 17.0 14.0 Creatinine 0.70 0.55 L Est GFR ( Amer) >60 >60 Est GFR (Non-Af Amer) >60 >60 BUN/Creatinine Ratio 24.3 25.5 Glucose 112 H 103 Calcium 9.6 9.2 Magnesium 2.0 Total Bilirubin 0.5 0.5 Direct Bilirubin 0.1 AST 15 21 ALT 20 24 Alkaline Phosphatase 162 H 149 H NT-Pro-B Natriuret Pep 131.0 Total Protein 6.6 6.4 Albumin 3.3 L 3.2 L Globulin 3.3 3.2 Albumin/Globulin Ratio 1.0 1.0 Folate 15.30 TSH 1.516 Urine Color Yellow Urine Clarity Clear Urine pH 6.5 Ur Specific [place] 1.020 Urine Protein Negative Urine Glucose (UA) Negative Urine Ketones Negative Urine Occult Blood Negative Urine Nitrite Negative Urine Bilirubin Moderate A Urine Urobilinogen 0.2 Ur Leukocyte Esterase Negative Urine RBC None seen Urine WBC 0-2 A Ur Squamous Epith Cells Rare Urine Crystals None seen Urine Bacteria Trace A Urine Casts None seen Urine Mucus Small A Urinary Catheter Management Urinary Catheter Management Straight: Cath placed during this visit: yes Urethral indwelling: No Insertion date: 04/20/25 Insertion time: 15:49
--- NOTE | 2025-04-21 11:02 | XR_ITS ---
[address] [address] Patient Name: RIDGE ROLAND MRN: [id number] date: 1945 Sex: M [place]igned Patient Location: [place] Current Patient Location: [place] Accession/Order Number: [id number] Exam Date: 04/21/2025 13:48 Report Date: 04/21/2025 13:49 At the request of: NAN PORTILLO MD Procedure: XR chest 2V Chest 2 views CLINICAL HISTORY: Pre MRI; verify removal of neurostimualtion leads COMPARISON: Chest 04/20/2025 FINDINGS: No neurostimulator leads are noted. Heart is normal in size. Lungs are clear. No free air. XR/XR chest 2V IMPRESSION: NO ACUTE CARDIOPULMONARY ABNORMALITY. Impression dictated by: Deonte Kent Jr., D.OIlir 04/21/2025 1:49 PM Dictation Location: [place] [address] Electronically authenticated by: [id number] Y Date: 04/21/2025 13:49
--- NOTE | 2025-04-21 11:55 | CM.NOTE ---
Called [facility] about pt needing skilled therapy, spoke with Zahida. Case Management will send over Case Management referral, physician notes and face sheet.
[2025-04-21 13:25] LABS: Potassium 3.2 mmol/L (3.5-5.1)
[2025-04-21] MEDS: POTASSIUM CHLORIDE IN WATER 10 MEQ/100 ML PREMIX 100 MEQ IV ×2 (13:26→14:25)
--- NOTE | 2025-04-21 13:48 | CM.NOTE ---
Anupama called and spoke with pt's regarding discharge plan skilled vs fci care. Pt and at this time are interested in skilled therapy at discharge. Anupama spoke with regarding cost if pt would need fci care. Case Management referral, Face sheet, and physician orders have been sent to start precert.
[2025-04-21 14:30] VITALS: BP 122/75; PULSE 79; TEMP 36.4; O2SAT 94
--- NOTE | 2025-04-21 15:29 | CM.NOTE ---
Important message From Medicare discussed with pt, pt verbalizes understanding and signs paper. Original given to pt and copy placed in pt's chart.
--- NOTE | 2025-04-21 17:29 | CA_ITS ---
Patient Name: RIDGE ROLAND MR#: [id number] : 1945 Exam Date: 04/21/2025 Ordering Doctor: NAN PORTILLO ECHOCARDIOGRAM REPORT PROCEDURE: CA ECHO DOPPLER COMPLETE INDICATIONS: CHF, cardiac stent COMPARISON: None. DESCRIPTION: COMPLETE ECHOCARDIOGRAM Real-time transthoracic echocardiography with 2D, M-mode, spectral and color flow Doppler performed. QUALITY: Technical quality was good. LEFT VENTRICLE: Normal chamber size. Mild concentric left ventricular hypertrophy. Systolic function appears at the lower limits of normal. LV EF: Low normal left ventricular ejection fraction, (50-55%). DIASTOLIC: Normal diastolic function. ATRIAL SEPTUM: LEFT ATRIUM: Mild dilatation. RIGHT ATRIUM: Mild dilatation. RIGHT VENTRICLE: Normal chamber size. Normal right ventricular systolic function. TRICUSPID VALVE: Normal mobility and thickness. No stenosis with trivial regurgitation. No evidence of pulmonary hypertension. RVSP 21 mmHg MITRAL VALVE: Normal mobility and thickness. No evidence of mitral valve stenosis. Mild mitral annular calcification. No mitral regurgitation. AORTIC VALVE: Likely trileaflet valve with calcified leaflet tips. Thickened aortic valve. Normal leaflet mobility. No evidence of aortic valve stenosis. Mild aortic regurgitation. AORTIC ROOT: Moderately dilated aortic root (4.7 cm). The ascending aorta is poorly visualized. PULMONIC VALVE: Normal thickness and mobility. No stenosis. Mild regurgitation. PERICARDIUM: No evidence of pericardial effusion. IVC: Not well visualized. PLEURA: CONCLUSION: 1. Mild concentric left ventricular hypertrophy with low normal systolic function. LVEF is estimated at 50 to 55%. 2. Normal right ventricular size and systolic function. 3. Mild biatrial dilatation. 4. Likely trileaflet aortic valve with mild regurgitation and no stenosis. 5. Moderately dilated aortic root measuring 4.7 cm. The ascending aorta is poorly visualized. 6. Normal diastolic function. 7. Normal right-sided pressures. Adult Echocardiography Procedure Report Left Ventricle LVEDD (3.7 - 5.6 cm): 4.25 cm LVESD (2.2 - 4.0 cm): 3.85 cm LVIVS thickness (0.6 - 1.2 cm): 1.10 cm LVPW thickness (0.5 - 1.0 cm): 1.18 cm e': 0.11 m/s E - e': 3.88 LVOT Max Gradient: 2.78 mm[Hg] LVOT Area (cm2): 0.83 m/s Peak Velocity (LVOT): 0.83 m/s Mean Velocity (LVOT): 0.50 m/s LVOT Diameter 2.72 cm Left Atrium Left Atrium Systolic Dimension: 3.27 cm Mitral Valve MV E to A Ratio: 0.75 Mitral Valve A-Wave Peak Velocity: 0.59 m/s Mitral Valve E-Wave Peak Velocity: 0.44 m/s Right Ventricle Aorta AO Root Diam: 4.74 cm Aortic Valve AoV Area (Peak Praveen): 3.93 cm2, 3.93 cm2 AoV Area (VTI): 3.66 cm2, 3.66 cm2 Peak Velocity(Antegrade Flow): 1.23 m/s Peak Gradient(Antegrade Flow): 6.04 mm[Hg] Mean Velocity(Antegrade Flow): 0.78 m/s Mean Gradient(Antegrade Flow): 2.99 mm[Hg] Velocity Time Integral: 24.77 cm Tricuspid Valve Peak Velocity (Regurgitant Flow): 2.11 m/s Pulmonic Valve Peak Velocity: 0.86 m/s Peak Gradient: 2.87 mm[Hg], 3.11 mm[Hg] Right Atrium Dictated by: Perry Weir M.D. on 04/24/2025 at 07:56 Approved by: Perry Weir M.D. on 04/24/2025 at 08:04
[2025-04-21 19:20] VITALS: BP 144/75; PULSE 80; TEMP 36.5; O2SAT 97
[2025-04-21] MEDS: ENOXAPARIN SODIUM 40 MG/0.4 ML SYRINGE SUBQ (21:06)
[2025-04-21] MEDS: ATORVASTATIN CALCIUM 40 MG TABLET PO (21:06)
[2025-04-21 23:08] VITALS: BP 156/77; PULSE 81; TEMP 36.4; O2SAT 93
--- NOTE | 2025-04-22 | MR_ITS ---
The [address] [address] Patient Name: RIDGE ROLAND MRN: [id number] date: 1945 Sex: M Assigned Patient Location: [place] Current Patient Location: [place] Accession/Order Number: [id number] Exam Date: 04/22/2025 13:34 Report Date: 04/22/2025 13:40 At the request of: NAN PORTILLO MD Procedure: MR lumbar spine wo con EXAMINATION: MRI LUMBAR SPINE WITHOUT IV CONTRAST CLINICAL HISTORY: unable to ambulate recent back surgery COMPARISON: MRI lumbar spine 01/12/2025 TECHNIQUE: Multiecho imaging was performed in the sagittal and axial planes without contrast administration. FINDINGS: Examination is suboptimal due to motion. Posterior hardware fixation L2-L5 associated blooming artifact limiting evaluation. Vertebral body heights appear maintained. No bone marrow edema is noted. Spinal cord terminates in normal position without abnormal cord signal. Posterior soft tissues demonstrate postoperative changes without fluid collection. Visualized retroperitoneum demonstrates no acute process. At L1-L2: No significant posterior disc pathology. Ligamentum flavum hypertrophy and facet joint degenerative changes causing moderate canal and bilateral neural foraminal stenosis. At L2-L3: Postoperative changes. No significant canal stenosis is seen. At L3-L4: Postoperative changes. No significant canal stenosis is seen. At L4-L5: Postoperative changes. No significant canal stenosis. At L5-S1: No posterior disc pathology. There appears to be laminectomy changes. No canal stenosis. Moderate bilateral neural foraminal stenosis. MR/MR lumbar spine wo con IMPRESSION: Postoperative changes with hardware fixation L3-L5 associated blooming artifact limiting evaluation. There appears be moderate canal stenosis at L1-L2 primarily due to facet joint degenerative changes. Findings have progressed since the prior study from 01/12/2025. Impression dictated by: Deonte Kent Jr., D.O. 04/22/2025 1:40 PM Dictation Location: [place] [address] Electronically authenticated by: [id number] Y Date: 04/22/2025 13:40
[2025-04-22 04:00] VITALS: BP 154/71; PULSE 91; TEMP 36.5; O2SAT 91
[2025-04-22 06:02] LABS: BUN Creatinine Ratio 14.6; Calcium 9.2 mg/dL (8.5-10.1); Chloride 105 mmol/L (98-107); Estimated GFR (African America >60 (>=60 mL/min/1.73m^2); Estimated GFR (Non-African Ame >60 (>=60 mL/min/1.73m^2); Glucose 107 mg/dL (74-106); Sodium 144 mmol/L (136-145)
[2025-04-22 06:08] LABS: Vitamin B12 670 pg/mL (232-1245)
[2025-04-22 08:03] VITALS: BP 158/80; PULSE 74; TEMP 36.4; O2SAT 94
--- NOTE | 2025-04-22 09:00 | CM.NOTE ---
Rounds made with Dr. Lane, pt will need teleneuro consult for change in mental status. Dr. Lane also spoke with pt's regarding transfer of pt to higher level of care. in agreement with transfer.
[2025-04-22] MEDS: POLYETHYLENE GLYCOL 3350 17 GM POWDER PACKET PO (09:55)
[2025-04-22] MEDS: BISACODYL 5 MG TABLET 10 MG PO (09:55)
[2025-04-22] MEDS: ACETAMINOPHEN 500 MG TABLET PO (09:55)
[2025-04-22] MEDS: FOLIC ACID/VIT B6/VIT B12 TABLET 1 TAB PO (09:55)
--- NOTE | 2025-04-22 09:55 | PT.DAILY ---
Physical Therapy Daily Note PT Daily Note/Assess Start: 04/21/25 09:17 Freq: Status: Active Protocol: Document 04/22/25 09:48 MAXIMINO (Rec: 04/22/25 09:55 MAXIMINO [id number]) Physical Therapy Daily Note/Assessment Time In/Time Out Time In 09:35 Time Out 09:45 Pain In Pain N/A Pain Out Pain N/A Subjective Subjective Pt supine upon arrival. Able to tell me name and birthdate but speaks quiet and mumbles. Pt ageeable to bed level ex. Nursing wishes to keep pt in bed as he's awaiting MRI. Therapeutic Exercise Time Therapeutic Exercise 8 Minutes (minutes) Therapeutic Exercise 1 Units Therapeutic Exercise Treatment Therapeutic Exercise AAROM for bilat ankle df/pf, knee flexion, hip flexion, Treatment hip abduction, hip er/ir rocks 10x ea. Pt mumbles throughout and needs vc to try to relax through movements. Pt seems to be confused and reaching for objects in the air at are not there throughout session. Total Physical Therapy Time Total Therapy 8 Minutes Total Physical 1 Therapy Units Summary Daily Note Summary Fair tolerance with AAROM to bilat LEs. Confused.
[2025-04-22] MEDS: ALLOPURINOL 300 MG TABLET PO (09:56)
[2025-04-22] MEDS: ASPIRIN 81 MG TABLET.DR PO (09:56)
[2025-04-22] MEDS: LOSARTAN POTASSIUM 25 MG TABLET PO (09:56)
--- NOTE | 2025-04-22 11:30 | P.PN_ITS ---
Progress Note: Subjective Subjective Interval history: I took over this patient's care today from my colleague. On my encounter patient was confused oriented to himself but he is not aware of his surroundings and not making sense with what he is saying. He had no fever or chills overnight. I reviewed his labs and they were unremarkable. I had a discussion with the nursing team as well as with his regarding the plan of management. Exam Narrative Exam Narrative: Constitutional: Patient is confused he is able to secure his areas but he is not oriented to the place or time. He is oriented to himself. Eye Common normals: PERRL, EOMs intact bilaterally and conjunctivae normal Chest Common normals: inspection of chest normal Respiratory Common normals: normal respiratory effort, no retractions, no use of accessory muscles and clear to auscultation bilaterally, he is not in respiratory Cardio Rate: regular rate Rhythm: regular rhythm Heart sounds: S1 normal and S2 normal GI Other: Distended (constipated). nontender, soft tympanic to percussion Extremity Other: Mild edema in LEs wearning braces on both LEs Neuro Sensorium/orientation: Confused and lethargic. Oriented to himself not to place or time. Speech is not intact where he is saying stuff that I cannot understand. He does have generalized weakness but is able to move all extremities and is following commands. Sensation to pain and touch is intact in his lower extremities. Reflexes were normoactive to slightly hyporeflexia. No brisk or hyperreflexia. He does have bilateral pill-rolling tremors. Has foot drop in both LEs - chronic Constitutional Vital Signs, click to edit/add: Last Vital Signs Temp 97.6 F 04/22/25 08:03 Pulse 74 04/22/25 08:03 Resp 16 04/22/25 08:03 BP 158/80 H 04/22/25 08:03 Pulse Ox 94 L 04/22/25 08:03 O2 Del Method Room Air 04/22/25 08:03 Progress Note: Objective Labs Labs: [facility] 04/21/25 04/22/25 13:10 04:34 Sodium 144 Potassium 3.2 L 3.0 L Chloride 105 Carbon Dioxide 28.0 BUN 14.0 Creatinine 0.96 Glucose 107 H Calcium 9.2 Progress Note: A&P Assessment and Plan (1) Acute encephalopathy: Assessment and Plan: . (2) Generalized weakness: Assessment and Plan: . (3) Confusion: (4) Altered mental status: Plan Acute encephalopathy, intermittent confusion episodes, could be metabolic vs toxic (medication induced) Ruling out a neurodegenerative disorder Generalized weakness Weakness in LEs Physical debility functional decline Rule out intracranial process Multiple back surgeries in the past (most recent back in February 2025) -CT AP Postoperative changes are noted in the lumbar spine findings consistent with recent laminectomy. Posterior fusion hardware is noted from L2 through L5 with evidence of prior fusion at L5-S1. Degenerative changes are noted in the hips and sacroiliac joints. -Check MRI brain -Check MRI of lumbar spine -TSH and folate WNL -Pt on b12 supplements -Avoid opioids, sedatives -Holding Remeron (new addition to his meds per ) started per PCP. Allow washing period for about 48 hours and reassess mentation. -PT/OT eval -CM to follow for disposition Leg edema DVT ruled out Rule out CHF Hx of CAD with stent -venous doppler B/L negative for DVT -BNP WNL -pending Echo to evaluate LV function -Monitor on tele Abdominal distension due to constipation -Check CT AP noted to have moderate to large amount of constipation and stool burden -Started aggressive Bowel regimen -Replete potassium. Given IV and PO KCL -Monitor for BM Hypokalemia -Replete potassium. Given IV and PO KCL -Recheck K later today, will replete as needed HTN -Controlled -Pt on 3 agents for BP, amlodipine which can cause his leg edema, losartan and HCTZ -Will hold HCTZ given hypokalemia, holding amlodipine given leg edema. BP seems controlled -Will only resume Losartan at this point to maintain normotensive status DVT ppx: Lovenox 04/22/2025 patient seen and examined at bedside. I reviewed his labs they were unremarkable today. His UA on admission was negative as well. 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 Will go for her spine which was already done earlier. We are avoiding opioids or sedation. I am anticholinergic for now quested a neurology consult which will as a telemetry consult with pulm team to coordinate patient to a tertiary where there is neurology service in house. I believe patient may benefit lumbar puncture. I will give the patient another IV potassium of 40 mill equivalent once now. Patient is able to secure his airways at this time. Also ordered ABG. Discussed the plan of manage with the in details. Answered all question addressed her concerns. Urinary Catheter Management Urinary Catheter Management Straight: Cath placed during this visit: yes Urethral indwelling: No Insertion date: 04/20/25 Insertion time: 15:49
[2025-04-22 11:55] LABS: Glucometer 113 mg/dL (74-106)
[2025-04-22] MEDS: POTASSIUM CHLORIDE 10 MEQ ER TABLET 40 MEQ PO (12:23)
--- NOTE | 2025-04-22 13:15 | PM.DS1 ---
DS: Providers Provider Date of admission: 04/20/25 18:24 Primary care physician: Devang Keyes DO Consults: 04/20/25 17:44 Occupational Therapy Eval and Treat Routine Reason for consultation: weakness Physical Therapy Eval and Treat Routine Reason for consultation: weakness 04/22/25 09:24 Consult to TeleNeurology Routine Reason for consultation: Delirium, CVA ruled out Anticipated date of discharge: 04/22/25 DS: Diagnosis Discharge Diagnosis (1) Acute encephalopathy: (2) Generalized weakness: (3) Confusion: (4) Altered mental status: Plan As above DS: Summary Hospital Course Hospital Course: Patient is a 79 year old male with medical history as listed below presented accompanied by his for difficulty walking, generalized weakness. He had back surgery in February and had been at the [facility] since March 08. He was released 4 days ago and has been at home. states he has been weak. Patient himself reports hallucinations, visual and auditory. pt reports he seems somnolent during episodes. He did have similar episodes while hospitalized at that time of his back surgery, underwent MRI brain and EEG which were unrevealing, was told he had a bad UTI . Patient has not been able to ambulate at home. Required 2 medical personal to pick him up and put him in the ambulance. Patient denies nausea, vomiting, diarrhea. He does have increase abd girth, thinks he gained some weight. Last BM last night, tolerating oral diet. Here in ER, normotensive, saturating well on RA, afebrile, no leukocytosis. denies fever or chills at home. UA came back neg for infection. CXR with no acute pathology. CT head with no acute pathology. Patient unable to care for self at home and requires maximal assistance for his ADLs. cannot care for him at home. Decision was made to admit him for further evaluation and managmenet. Acute encephalopathy, intermittent confusion episodes, could be metabolic vs toxic (medication induced) Generalized weakness Weakness in LEs Physical debility functional decline Rule out intracranial process Multiple back surgeries in the past (most recent back in February 2025) -CT AP Postoperative changes are noted in the lumbar spine findings consistent with recent laminectomy. Posterior fusion hardware is noted from L2 through L5 with evidence of prior fusion at L5-S1. Degenerative changes are noted in the hips and sacroiliac joints. -Check MRI brain -Check MRI of lumbar spine -TSH and folate WNL -Pt on b12 supplements -Avoid opioids, sedatives -Holding Remeron (new addition to his meds per ) started per PCP. Allow washing period for about 48 hours and reassess mentation. -PT/OT eval -CM to follow for disposition Leg edema DVT ruled out Rule out CHF Hx of CAD with stent -venous doppler B/L negative for DVT -BNP WNL -pending Echo to evaluate LV function -Monitor on tele Abdominal distension due to constipation -Check CT AP noted to have moderate to large amount of constipation and stool burden -Started aggressive Bowel regimen -Replete potassium. Given IV and PO KCL -Monitor for BM Hypokalemia -Replete potassium. Given IV and PO KCL -Recheck K later today, will replete as needed HTN -Controlled -Pt on 3 agents for BP, amlodipine which can cause his leg edema, losartan and HCTZ -Will hold HCTZ given hypokalemia, holding amlodipine given leg edema. BP seems controlled -Will only resume Losartan at this point to maintain normotensive status 04/22/2025 patient seen and examined at bedside. I reviewed his labs they were unremarkable today. His UA on admission was negative as well. 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 Will go for her spine which was already done earlier. We are avoiding opioids or sedation. I am anticholinergic for now quested a neurology consult which will as a telemetry consult with pulm team to coordinate patient to a tertiary where there is neurology service in house. I believe patient may benefit lumbar puncture. I will give the patient another IV potassium of 40 mill equivalent once. Spoke to Neuro team from [facility] ([place], [place]), Who already saw the pt through televisit. They recommended the following until the pt comes to [facility], where they will see him on consult: Ammonia level, ESR, CRP, vitamin D, Lyme panel, Also they recommended starting Seroquel 25 mg PO qhs he will need EEG when he gets to [facility] Also recommended to minimize Interruption at sleep, with clustered care, I communicated the recommendations to the nursing team Pt was discharged in a stable manner to [facility]. Status at Discharge Overall status at discharge: patient is not back to baseline Time Spent with Patient Time attestation: Total time spent providing and/or coordinating discharge services: Exam Narrative Exam Narrative: Exam Narrative Exam Narrative: Constitutional: Patient is confused he is able to secure his areas but he is not oriented to the place or time. He is oriented to himself. Eye Common normals: PERRL, EOMs intact bilaterally and conjunctivae normal Chest Common normals: inspection of chest normal Respiratory Common normals: normal respiratory effort, no retractions, no use of accessory muscles and clear to auscultation bilaterally, he is not in respiratory Cardio Rate: regular rate Rhythm: regular rhythm Heart sounds: S1 normal and S2 normal GI Other: Distended (constipated). nontender, soft tympanic to percussion Extremity Other: Mild edema in LEs wearning braces on both LEs Neuro Sensorium/orientation: Confused and lethargic. Oriented to himself not to place or time. Speech is not intact where he is saying stuff that I cannot understand. He does have generalized weakness but is able to move all extremities and is following commands. Sensation to pain and touch is intact in his lower extremities. Reflexes were normoactive to slightly hyporeflexia. No brisk or hyperreflexia. He does have bilateral pill-rolling tremors. Has foot drop in both LEs - chronic Constitutional Vital Signs, click to edit/add: Last Vital Signs Temp 97.7 F 04/22/25 19:23 Pulse 84 04/22/25 19:23 Resp 18 04/22/25 19:23 BP 139/76 04/22/25 19:23 Pulse Ox 91 L 04/22/25 19:23 O2 Del Method Room Air 04/22/25 19:23 DS: Data Data Completed and Pending Labs on day of discharge: Labs from last 24 hours 04/22/25 04/22/25 16:09 13:30 ESR 21 H Puncture Site Rr ABG pH 7.459 H ABG pCO2 39.4 ABG pO2 68.7 L ABG HCO3 27.9 H ABG O2 Saturation 95.2 ABG Base Excess 4.1 H Sebastian Test Positive Ammonia 11 C-Reactive Protein <0.50 Preliminary micro results at discharge 04/20/25 15:20 Blood Culture Result 2 - Preliminary Blood - Left Hand NO GROWTH AT 36-48 HOURS. FINAL TO FOLLOW. 04/20/25 15:11 Blood Culture Result 1 - Preliminary Blood - Right Forearm NO GROWTH AT 36-48 HOURS. FINAL TO FOLLOW. Discharge Plan Discharge Disposition: [facility] Condition: Fair Discharge Date/Time: 04/22/25 20:48
[2025-04-22 13:39] LABS: ABG PCO2 39.4 mmHg (35.0-45.0); Allen Test POSITIVE (POSITIVE); Base Excess ABG 4.1 mmol/L (-2.0-2.0); HCO3 ABG 27.9 mmol/L (22.0-26.0); Oxygen Saturation ABG 95.2 %; PO2 ABG 68.7 mmHg (80.0-100.0); Puncture Site RR; pH ABG 7.459 (7.350-7.450)
[2025-04-22 13:40] LABS: O2 Mode RA
--- NOTE | 2025-04-22 13:47 | CM.NOTE ---
Called [facility] prather Kinder to update that pt will transfer to higher level of care.
[2025-04-22 13:54] VITALS: BP 156/88; PULSE 75; TEMP 36.7; O2SAT 91
--- NOTE | 2025-04-22 14:59 | PC.NURSE ---
neuro consult in progress
[2025-04-22 16:33] LABS: Erythrocyte Sedimentation Rate 21 mm/hr (<=20)
[2025-04-22 16:34] LABS: Ammonia 11 umol/L (11-32)
[2025-04-22 16:39] LABS: C Reactive Protein <0.50 mg/dL (<=0.50)
[2025-04-22 19:23] VITALS: BP 139/76; PULSE 84; TEMP 36.5; O2SAT 91
--- NOTE | 2025-04-22 20:55 | PC.NURSE ---
Report given to [facility] [employer]. Pt in room with patient stating she was following the ambulance to [facility]. RN called report at 2048 to Taylor JENNINGS. Pt discharged at 2047.
[2025-04-24 07:07] LABS: Vitamin D, 25-Hydroxy 37.1 ng/mL (30.0-100.0)
[2025-04-24 13:08] LABS: Lyme Total Antibody CIA Negative (Negative)
== END 2025-04-22 20:48 | disposition short-term general hospital (02) | DRG 92 ==
LOC: ER 17:11 → MS 04-21 05:58
PROVIDERS: Admitting Provider Internal Medicine; Emergency Provider Emergency Medicine; PCP Internal Medicine; Visit Provider Student in an Organized Health Care Education/Training Program
DX: G92.8 Other toxic encephalopathy (principal); R44.0 Auditory hallucinations; R41.0 Disorientation, unspecified; R53.1 Weakness; R44.1 Visual hallucinations; R60.0 Localized edema; I25.10 Atherosclerotic heart disease of native coronary artery without angina pectoris; Z95.5 Presence of coronary angioplasty implant and graft; R14.0 Abdominal distension (gaseous); E87.6 Hypokalemia; R53.81 Other malaise; Z98.1 Arthrodesis status; K59.00 Constipation, unspecified; T50.905A Adverse effect of unspecified drugs, medicaments and biological substances, initial encounter; I10 Essential (primary) hypertension; Z79.899 Other long term (current) drug therapy; Z87.891 Personal history of nicotine dependence; Z87.440 Personal history of urinary (tract) infections; Z91.81 History of falling; M21.372 Foot drop, left foot; M21.371 Foot drop, right foot; G62.9 Polyneuropathy, unspecified; Z96.651 Presence of right artificial knee joint; G47.8 Other sleep disorders
CPT/HCPCS: 36415; 36600; 70450; 70551; 71045; 71046; 72148; 74176; 80048; 80053; 80076; 81001; 82140; 82306; 82607; 82746; 82805; 83735; 83880; 84132; 84443; 85025; 85652; 86140; 86592; 86618; 87040; 93005; 93306; 93970; 97110; 97162; 97165; 97535; 99285; J1650; J1938; J3480

== ENCOUNTER 2025-06-18 09:07 | Outpatient (OUT) | payer MEDICARE, SELFPAY ==
--- OUTSIDE RECORDS SUMMARY | 2025-02-10 11:59 | XMS_ITS ---
Author Organization [facility] [place] Address [address] [place] [address] Care Team Providers Care Aircraft Ordnance Technician Name Role Phone Devang Keyes DO Primary Care Provider Unavaila Chidi Koch [phone] REASON FOR VISIT Trospium Medications Medication SIG (Take, Route, Fr equency, Duration) Notes Start Date End Date Status Trospium Chloride 20 MG 1 tablet Orally Twice a day for 90 days 02/10/2025 Active Encounters Encounter Location Date Provider Diagnosis Urology [facility] [address] [place] [address] 02/10/2025 Chidi Mims Overactive bladder N32.81 and Urge incontinence N39.41 Assessments Encounter Date Diagnosis (ICD Code) Assessment Notes Treatment Notes Treatment Clinical Notes Section Notes 02/10/2025 Overactive bladder (ICD-10 - N32.81) 02/10/2025 Urge incontinence (ICD-10 - N39.41) Plan Of Treatment Medication Medication Name Sig Start Date Stop Date Notes Trospium Chloride 20 MG 1 tablet Orally Twice a day for 90 days 02/10/2025 Progress Notes * Edvin ROLAND LDOB: 6 (79 yo F)Acc No.[id number]:02/10/2025 Patient: Edvin SALGADO :1945 A ge:79 Y S ex:Female Address:[address] [place] [address] , [place], [address] * Refills Start Trospium Chloride Tablet, 20 MG, Orally, 180 Tablet, 1 tablet, Twice a day, 90 days, Refills=3 Subjective: * Chief Complaints: * T rospium * Medical History: * Surgical History: * Hospitalization/Major Diagno stic Procedure: * Medications: Objective: * Vitals: * Physical Examination: Assessment: * Assessment: 1. O veractive bladder - N32.81 (Primary) 2 . U rge incontinence - N39.41? Plan: * Treatment: * Procedure Codes: * true * Date: Generated for Jerry good/Keyana/eTrogeliosmitting on: 0 06/18/2025 09:11 AM EDT
--- OUTSIDE RECORDS SUMMARY | 2025-02-17 06:20 | XMS_ITS ---
Author Organization [facility] [place] Address [address] [place] [address] Care Team Providers Care Consumer Services Consultant Name Role Phone Devang Keyes DO Primary Care Provider Unavaila Chidi Koch [phone] REASON FOR VISIT -6 Month Follow Up- Encounters Encounter Location Date Provider Diagnosis Urology [facility] [address] [address] 02/17/2025 Chidi Mims Plan Of Treatment No Information Progress Notes * Edvin ROLAND LDOB: [birth year] (79 yo F)Acc No.[id number]:02/17/2025 UNLOCKED PROGRESS NOTE Patient: Edvin SALGADO Provider: Bhupinder Mims MD :1945 A ge:79 Y S ex:Female Date:02/17/2025 Address:[address] [place], [place] [address] Pcp:Devang Keyes DO Subjective: * Chief Complaints: * 1 . -6 Month Follow Up-. * Medical History: Objective: * Vitals: Assessment: Plan: * Treatment: * * Electronic signature of Victor Manuel Mims MD, [id number] on 06/18/2025 at 09:10 AM EDT Sign off status: Pending Visit Status: R /S (Rescheduled) * Provider: Bhupinder Mims MD Date: 0 02/17/2025 Generated for Jerry good/Keyana/Reyesitting on: 0 06/18/2025 09:10 AM EDT
--- OUTSIDE RECORDS SUMMARY | 2025-04-28 06:50 | XMS_ITS ---
Author Organization [facility] in [place] Address [address] [place] [address] Care Team Providers Care Ceramic Restorer Name Role Phone Devang Keyes DO Primary Care Provider Unavaila Chidi [facility] [phone] REASON FOR VISIT 2 mo f/u Encounters Encounter Location Date Provider Diagnosis Urology [facility] [address] [address] 04/28/2025 Chidi Mims Plan Of Treatment No Information Progress Notes * Edvin ROLAND LDOB: (79 yo F)Acc No.[id number]:04/28/2025 UNLOCKED PROGRESS NOTE Patient: Edvin SALGADO Provider: Bhupinder Mims MD :1945 A ge:79 Y S ex:Female Date:04/28/2025 Address:[address] [place], [place] [id number] Pcp:Devang Keyes DO Subjective: * Chief Complaints: * 1 . 2 mo f/u. * Medical History: Objective: * Vitals: Assessment: Plan: * Treatment: * * Electronic signature of Victor Manuel Mims MD, [id number] on 06/18/2025 at 09:11 AM EDT Sign off status: Pending Visit Status: C ANC (Cancelled) * Provider: Bhupinder Mims MD Date: 0 04/28/2025 Generated for Jerry good/Keyana/Reyesitting on: 0 06/18/2025 09:11 AM EDT
--- OUTSIDE RECORDS SUMMARY | 2025-05-14 06:20 | XMS_ITS ---
Author Organization [facility] Address [address] [place] [address] Care Team Providers Care Firearms Expert Name Role Phone DOROTHY HALL DO Primary Care Provider StanleyAnita Retana Unavailable [phone] Deedee Albert Unavailable REASON FOR VISIT LUMBAR RECHECK Medications Medication SIG (Take, Route, Fr equency, Duration) Notes Start Date End Date Status etodolac Active Flexeril 10 mg 1 tab(s) orally 3 ti mes a day prn muscle spasms 02/23/2025 Active Losartan Potassium A ctive amLODIPine 5 mg 1 tab(s) Acti ve HCTZ Active Calcium 600+D Active lutein zeaxanthin Ac tive allopurinol 300 mg 1 tab(s) A ctive Baby Aspirin Active Lipitor 40 mg 1 tab(s) Active Potassium Active Vitamin B Active Vitamin C Active Encounters Encounter Location Date Provider Diagnosis [facility] [address] [place] [address] 05/14/2025 Deedee Albert Plan Of Treatment Next Appt Details Provider Name:Anita Rock, 09/10/2025 10:30:00 AM, [address] [place], [address], Progress Notes * YAS ROLAND:1945 (79 yo M)Acc No.[id number]:05/14/2025 Patient: Lety RIDGE ELIZABETH Provider: AYAN Gordon :1945 A ge:79 Y S ex:Male Date:05/14/2025 Address:[address] [place], [place] [id number] Pcp:DOROTHY HALL DO Subjective: * Chief Complaints: * 1 . LUMBAR RECHECK. * Medical History: * Medications: T aking Losartan Potassium , Taking etodolac , Taking Potassium , Taking Vitamin C , Taking Vitamin B , Taking allopurinol 300 mg tablet 1 tab(s) , Taking Lipitor 40 mg tablet 1 tab(s) , Taking Baby Aspirin , Taking lutein zeaxanthin , Taking Calcium 600+D , Taking HCTZ , Taking amLODIPine 5 mg tablet 1 tab(s) , Taking Flexeril 10 mg tablet 1 tab(s) orally 3 times a day prn muscle spasms Objective: * Vitals: Assessment: Plan: * Treatment: Forms: * Images: * Electronic signature of René Albert PA-C on 06/18/2025 at 09:09 AM EDT Sign off status: Pending * Provider: AYAN Gordon Date: 0 05/14/2025 Generated for Jerry good/Keyana/Reyesitting on: 0 06/18/2025 09:09 AM EDT
--- OUTSIDE RECORDS SUMMARY | 2025-06-12 07:00 | XMS_ITS ---
Author Organization [facility] Address [address] [place] [address] Care Team Providers Care Rotoformer Backtender Name Role Phone DOROTHY HALL DO Primary Care Provider Anita Medrano Unavailable [phone] REASON FOR VISIT LUMBAR PAIN Medications Medication SIG (Take, Route, Fr equency, Duration) Notes Start Date End Date Status Flexeril 10 mg 1 tab(s) orally 3 ti mes a day prn muscle spasms 02/23/2025 Active Calcium 600+D Active Losartan Potassium A ctive amLODIPine 5 mg 1 tab(s) Acti ve HCTZ Active Vitamin B Active lutein zeaxanthin Ac tive Baby Aspirin Active Lipitor 40 mg 1 tab(s) Active allopurinol 300 mg 1 tab(s) A ctive Vitamin C Active Potassium Active etodolac Active Social History Tobacco Use: Social History Observation Description Date Details (start date - stop date) Former Smoker NA - NA AUDIT-C (Standard) Question Answer Notes Did you have a drink contain ing alcohol in the past year? Yes How often did you have a dri nk containing alcohol in the past year? Declined to specify (0 point) How many drinks did you have on a typical day when you were drinking in the past year? 1 or 2 drinks (0 point) How often did you have six o r more drinks on one occasion in the past year? Declined to specify (0 point) Points 0 Interpretation Negative Tobacco Control (Standard) Question Answer Notes Tobacco use: Former smoker Vital Signs Height 6 ft 4 in in 06/12/2025 Weight 260 lbs 06/12/2025 BMI 31.64 06/12/2025 Encounters Encounter Location Date Provider Diagnosis [facility] [facility] [address] [place] [address] 06/12/2025 Anita Schmid Encounter for other orthopedic aftercare Z47.89 Assessments Encounter Date Diagnosis (ICD Code) Assessment Notes Treatment Notes Treatment Clinical Notes Section Notes 06/12/2025 Encounter for other orthopedic aftercare (ICD-10 - Z47.89) Plan Of Treatment Pending Test Test Name Order Date Lumbar spine 2v ap and lat - 98111 06/12 Next Appt Details Follow Up: 3 Months, Reason: Provider Name:Anita Julissa Rock, 09/10/2025 10:30:00 AM, [address] [place] [address], [phone], Progress Notes * AMARJIT ROLANDOB:1945 (79 yo M)Acc No.[id number]:06/12/2025 Patient: RIDGE SALGADO Provider: Sarah Beth Mcdonald MD, PhD :1945 A ge:79 Y S ex:Male Date:06/12/2025 Address:[address] [place], [place] [phone] Pcp:DOROTHY HALL, Subjective: * Chief Complaints: * 1 . LUMBAR PAIN. * Medical History: H igh Blood Pressure. * Surgical History: L 2-5 laminectomy, PSF 02/24/2025. * Family History: M other: diagnosed with Hypertension, Diabetes. F ather: diagnosed with Cancer, Arthritis.? * Social History: E xercise regularly D o you exercise? N o. A MANJIT-C (Standard) D id you have a drink containing alcohol in the past year? Y es, H ow often did you have a drink containing alcohol in the past year? D eclined to specify (0 point), H ow many drinks did you have on a typical day when you were drinking in the past year? 1 or 2 drinks (0 point), H ow often did you have six or more drinks on one occasion in the past year? D eclined to specify (0 point), P oints 0 , I nterpretation N egative. T obacco Control (Standard) T obacco use: F ormer smoker. * Medications: T aking Losartan Potassium , [...] 3 times a day prn muscle spasms , Medication List reviewed and reconciled with the patient Objective: * Vitals: H t: 6 ft 4 in, Wt: 260 lbs, BMI:31.64. Assessment: * Assessment: 1. E ncounter for other orthopedic aftercare - Z47.89 (Primary) Plan: * Treatment: * Procedure Codes: 7 2100 X-ray Lumbar Spine, 2 view * Follow Up: 3 Months Forms: * Images: * Electronic signature of Antwon Schmid MD, PHD on 06/18/2025 at 09:10 AM EDT Sign off status: Pending * Provider: Sarah Beth Mcdonald MD, PhD Date: 0 06/12/2025 Generated for Jerry good/Keyana/Ryeesitting on: 0 06/18/2025 09:10 AM EDT
--- OUTSIDE RECORDS SUMMARY | 2025-06-17 09:30 | XMS_ITS | Encounter Summary ---
Author Organization [facility] Address [address] [place] [address] Phone Care Team Providers Care Resident Care Director Name Role Phone Anita Schmid MD Unavailable [phone] Devang Keyes DO Primary Care Provider [phone] Reason for Referral * Consultation (Routine) - Authorized Specialty Diagnoses / Procedures Referred By Contac t Referred To Contact Cardiology Diagnoses Arteriosclerosis of coronary artery Procedures Follow Up In Cardiology Marisol Alas MD [address] [place] [phone] Phone: tel: fax: Marisol Alas MD [address] [place], [place] [address]leti Cristobal [address] [address] Phone: tel: fax: Referral ID Status Reason Start Date Expiration Date V isits Requested Visits Authorized [id number] Authorized 06/17/2025 06/17/2026 1 1 Reason for Visit * Reason Comments Follow-up 6 month, coronary ar debbie disease * Consultation (Routine) - Authorized Specialty Diagnoses / Procedures Referred By Contac t Referred To Contact Cardiology Diagnoses Arteriosclerosis of coronary artery Procedures Follow Up In Cardiology Marisol Alas MD [address] [facility] 2, [address] [address] Phone: tel: fax: Marisol Alas MD [address] [place] [address] 2, [address] [address] Phone: tel: fax: Referral ID Status Reason Start Date Expiration Date V isits Requested Visits Authorized [id number] Authorized 05/22/2024 05/22/2025 1 1 Encounter Details Date Type Department Care Team (Latest Contact Info) Description 06/17/2025 9:30 AM EDT Office Visit [address] [phone] Marisol Alas MD [address] [place] [phone] Arteriosclerosis of coronary artery; Essential hypertension; Dyslipidemia; Status post coronary angioplasty; BMI 28.0-28.9,adult; Former smoker Discharge Disposition: Home Social History Tobacco Use Types Packs/Day Years Used Date Smoking Tobacco: Former Cigarettes Q uit: 1984 Smokeless Tobacco: Never Alcohol Use Standard Drinks/Week Comments Yes 5 (1 standard drink = 0.6 oz pur e alcohol) Sex and Gender Information Value Date Recorded Sex Assigned at Not on file Legal Sex Male 9:35 AM EST Gender Identity Not on file Sexual Orientation Not on file documented as of this encounter Last Filed Vital Signs Vital Sign Reading Time Taken Comments Blood Pressure 122/72 06/17/2025 9:27 AM EDT Pulse 82 06/17/2025 9:27 AM EDT Temperature - - Respiratory Rate - - Oxygen Saturation - - Inhaled Oxygen Concentration - - Weight 105 kg (231 lb) 06/17/2025 9:27 AM EDT Height 193 cm (6' 4 ) 06/17/2025 9:27 AM EDT Body Mass Index 28.12 06/17/2025 9:27 AM EDT documented in this encounter Patient Instructions * Patient Instructions* Lora Torres LPN - 06/17/2025 9:30 AM EDT Please bring all medicines, vitamins, and herbal supplements with you when you come to the office. Prescriptions will not be filled unless you are compliant with your follow up appointments or have a follow up appointment scheduled as per instruction of your physician. Refills should be requested at the time of your visit. BMI was above normal measurement. Current weight: 105 kg (231 lb) Weight change since last visit (-) denotes wt loss -20 lbs Weight loss needed to achieve BMI 25: 26 Lbs Weight loss needed to achieve BMI 30: -14.9 Lbs Provided instructions on dietary changes. * Attachments The following attachments cannot be sent through Care Everywhere. * Diet and health (Malay) documented in this encounter Progress Notes * Marisol Alas MD - 06/17/2025 9:30 AM EDT HPI Patient is in the office accompanied by his for follow-up for CAD previous angioplasty of the ostial right coronary artery in 2018 with no recurrent disease. Since I saw him he underwent back surgery with no complications cardiovascular jacobs but obviously it was not a great success and he continued to have problems with his back. He has not had blood work done through his PCP. Lipid profile was ordered, other labs were available for review from admission in April 2025 to [facility] for confusion and hallucination. He has limited activities and uses a walker for ambulation. Reports no angina orthopnea PND lower extremity edema and no syncope or presyncope. Has been compliant with medical therapy which I reviewed with him. Assessment/recommendations: 1-coronary artery disease status post angioplasty of the ostial right coronary artery for 80% stenosis June 2019 with drug-eluting stent. Currently he is on guideline directed medical therapy for chronic ischemic heart disease and stable. 2-essential hypertension on medical therapy presently under control, his medical therapy has been well-tolerated, he follows low-salt diet, his physical activity is extremely limited because of orthopedic problems. He does not have sleep apnea. 3-overweight. encouragement for weight loss was provided emphasizing low calorie diet, has lost several pounds since last visit. 4-hyperlipidemia on high intensity statin therapy. Patient was reminded to continue to follow low fat diet and continue his medications, lipid profile is ordered 5-Severe peripheral neuropathy limit his daily activities 6-chronic arthritis which limits the patient's mobility. Review of Systems All other systems reviewed and are negative. Vitals: 06/17/25 0927 BP: 122/72 BP Location: Left arm Patient Position: Sitting Pulse: 82 Weight: 105 kg (231 lb) Height: 1.93 m (6' 4 ) Objective Physical Exam Constitutional: Appearance: Normal appearance. [...] Hydrocodone-acetaminophen and Oxycodone Current Medications Current Outpatient Medications Medication Instructions allopurinol (ZYLOPRIM) 300 mg, Daily amLODIPine (NORVASC) 5 mg, Daily aspirin 81 mg, Daily atorvastatin (LIPITOR) 40 mg, oral, Daily calcium carbonate 600 mg calcium (1,500 mg) tablet Every 12 hours cyanocobalamin, vitamin B-12, (Vitamin B-12) 1,000 mcg tablet extended release 1 tablet, Daily etodolac (LODINE) 500 mg, Every 12 hours hydroCHLOROthiazide (HYDRODIURIL) 25 mg, Daily Klor-Con M20 20 mEq ER tablet 20 mEq, oral, Daily LUTEIN-ZEAXANTHIN ORAL 1 capsule, Daily melatonin 5 mg capsule 1 capsule, Daily mirabegron (MYRBETRIQ) 50 mg, Daily RT nitroglycerin (NITROSTAT) 0.4 mg, sublingual, Every 5 min PRN omeprazole (PRILOSEC) 40 mg, Daily before breakfast Assessment/Plan 1. Arteriosclerosis of coronary artery Follow Up In Cardiology Lipid Panel Follow Up In Cardiology Lipid Panel 2. Essential hypertension 3. Dyslipidemia Lipid Panel Lipid Panel 4. Status post coronary angioplasty 5. BMI 28.0-28.9,adult 6. Former smoker Scribe Attestation By signing my name below, RiaLora LPN, Scribe attest that this documentation has been prepared under the direction and in the presence of Marisol Alas MD. Provider Attestation - Scribe documentation All medical record entries made by the Scribe were at my direction and personally dictated by me. Vinave reviewed the chart and agree that the record accurately reflects my personal performance of the history, physical exam, discussion and plan. documented in this encounter Plan of Treatment Upcoming Encounters Date Type Department Care Team (Late st Contact Info) Description 01/28/2026 9:30 AM EDT Office Visit [facility] [address] [place] [phone] Marisol Alas MD [address] [place] [address] 2, [address] [address] Scheduled Orders Name Type Priority Associated Diagnoses Orde r Schedule Lipid Panel Lab Routine Arteriosclerosis of coronary artery Dyslipidemia Expected: 06/17/2025 (Approximate), Expires: 06/17/2026 documented as of this encounter Visit Diagnoses Diagnosis Arteriosclerosis of coronary artery Essential hypertension Unspecified essential hypertension Dyslipidemia Other and unspecified hyperlipidemia Status post coronary angioplasty Postsurgical percutaneous transluminal coronary angioplasty status BMI 28.0-28.9,adult Former smoker Personal history of tobacco use, presenting hazards to health documented in this encounter Additional Health Concerns Assessment Noted Time A fall risk assessment has been complete d for the patient 06/17/2025 9:27 AM EDT documented as of this encounter Care Teams Resident Care Director Relationship Specialty Start Date End Date Devang Keyes DO [address] [place] [address] PCP - General Internal Medicine 06/17/25 Anita Schmid MD Referring Physician 01/28/25 documented as of this encounter
--- OUTSIDE RECORDS SUMMARY | 2025-06-18 09:10 | XMS_ITS | Clinical Summary ---
Author Organization [employer] tem Address [id number] [address] [place] [address] Care Team Providers Care Peanut Separator Name Role Phone Wali Devang Iwona REYNA Primary Care Provider [phone] Allergies Active Allergy Reactions Criticality Noted Date Comments Oxycodone 01/27/2022 Not allergic but does not want this Medications amLODIPine (NORVASC) 2.5 mg tablet Take 2 tablets (5 mg total) by mouth in the morning. Active hydroCHLOROthia zide (HYDRODIURIL) 25 mg tablet Take 1 tablet (25 mg total) by mouth daily. Active calcium carbonate-vitam in D3 (CALCIUM 500 + D) 500 mg(1,250mg) -200 units per tablet Take 1 tablet by mouth in the morning and 1 tablet in the evening. Take with meals. Active LUTEIN-ZEAXANTH IN ORAL Take by mouth. Active atorvastatin (LIPITOR) 40 mg tablet Take 1 tablet (40 mg total) by mouth in the morning. Active allopurinoL (ZYLOPRIM) 300 mg tablet Take 1 tablet (300 mg total) by mouth in the morning. Active cyanocobalamin (vitamin B-12) 1000 MCG tablet Take 1 tablet (1,000 mcg total) by mouth in the morning. Active ascorbic acid, vitamin C, (VITAMIN C) 1000 mg tablet Take 1 tablet (1,000 mg total) by mouth in the morning. Active potassium chloride (KLOR-CON M) 20 MEQ CR tablet Take 1 tablet (20 mEq total) by mouth in the morning and 1 tablet (20 mEq total) before bedtime. Active mirabegron (MYRBETRIQ ORAL) Take by mouth. Active melatonin (CIRCADIN) 5 mg tablet Take 1 tablet (5 mg total) by mouth nightly. 04/28/2025 Active QUEtiapine (SEROquel) 25 mg tablet Take 1 tablet (25 mg total) by mouth nightly as needed () . 04/28/2025 Active aspirin 81 mg Take 1 tablet (81 mg total) by mouth in the morning. 28 tablet 04/28/2025 Active Active Problems Problem Noted Date Diagnosed Date Right knee pain 02/13/2022 Resolved Problems Problem Noted Date Diagnosed Date Resolved Date Altered mental status 04/23/20252024 Encounters Date Type Department Care Team Description 04/24/2025 Orders Only [facility] [place] [phone] Transcribe, Orders Support User Pain (Primary Dx) 04/23/2025 Travel 04/22/2025 11:04 PM EDT - 04/29/2025 10:45 AM EDT Hospital Encounter [facility] - GEN [address] Acute [address] [place] [address] Alcira Albarran MD Slusky, Ryan M, MD Noumi, Andre, MD Discharge Disposition: Long Term Facility-Medicare Cert 04/22/2025 10:25 AM EDT Ancillary Procedure [facility] [address] [place] [phone] Pain 04/22/2025 9:42 AM EDT - 04/22/2025 10:55 PM EDT Emergency [facility] [address] [place] [phone] Discharge Disposition: [facility] 04/21/2025 4:35 PM EDT Ancillary Procedure [facility] [place] [phone] Pain 04/21/2025 1:10 PM EDT Ancillary Procedure [facility] [address] [place] [phone] Pain 04/20/2025 7:30 PM EDT Ancillary Procedure [facility] [address] [place] [address] Pain 04/20/2025 6:15 PM EDT Ancillary Procedure [facility] [address] [place] [phone] Pain 04/20/2025 3:30 PM EDT Ancillary Procedure [facility] [address] [place] [phone] Pain 04/20/2025 3:00 PM EDT Ancillary Procedure [facility] [address] [place] [phone] Pain from Last 3 Months Immunizations Immunization Administration Dates Next Due COVID-19, mRNA, LNP-S, PF, 30mcg/0.3mL Dose 12/07 Family History Medical History Relation Name Comments Cancer Father Diabetes Mother No Known Problems Sister Relation Name Status Comments Father Mother Sister Social History Tobacco Use Types Packs/Day Years Used Date Smoking Tobacco: Former Cigarettes Smokeless Tobacco: Never Tobacco Cessation:Counseling Given: Not Answered Comments:Smoked about 2 packs a day in 80s Alcohol Use Standard Drinks/Week Comments Yes 1 (1 standard drink = 0.6 oz pur e alcohol) daily [employer] Utilities Answer Date Recorded In the past 12 months has [employer], gas, oil, or water Clue App threatened to shut off services in your home? No 04/23/2025 AUDIT-C Answer Date Recorded Q1: How often do you have a drink containing alcohol? 4 or more times a week 04/23/2025 Q2: How many drinks containi ng alcohol do you have on a typical day when you are drinking? 1 or 2 Q3: How often do you have si x or more drinks on one occasion? Less than monthly 04/23/2025 Overall Financial Resource Strain (CARDIA) Answe r Date Recorded How hard is it for you to pa y for the very basics like food, housing, medical care, and heating? Not hard at all 04/23/2025 PRAPARE - 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 Answer Date Re corded In the past 12 months, has l ack of transportation kept you from medical appointments or from getting medications? No 04/05 In the past 12 months, has l ack of transportation kept you from meetings, work, or from getting things needed for daily living? No 04/23/2025 Housing Instability Answer Date Recorde d Are you worried or concerned that in the next two months you may not have stable housing that you own, rent or stay in as a part of a household? No 04/23/2025 Hunger Screening Answer Date Recorded Within the past 12 months we worried whether our food would run out before we got money to buy more. Never True 04/23/2025 Within the past 12 months th e food we bought just didn't last and we didn't have money to get more. Never True 04/23/2025 Sex and Gender Information Value Date Recorded Sex Assigned at Not on file Legal Sex Male 1:02 PM EST Gender Identity Male 10/24/2023 7:17 PM EST Sexual Orientation Straight 10/24/2023 7: 17 PM EST Last Filed Vital Signs Vital Sign Reading Time Taken Comments Blood Pressure 142/68 04/29/2025 8:15 AM EDT Pulse 63 04/29/2025 8:15 AM EDT Temperature 36.4 C (97.5 F) 04/29/2025 8:15 AM EDT Respiratory Rate 15 04/29/2025 8:15 AM EDT Oxygen Saturation 97% 04/29/2025 8:15 AM EDT Inhaled Oxygen Concentration - - Weight 107.4 kg (236 lb 12.4 oz) 04/27/2025 9:09 PM EDT Height 193 cm (6' 4 ) 04/23/2025 2:58 PM EDT Body Mass Index 28.82 04/23/2025 2:58 PM EDT Plan of Treatment Health Maintenance Due Date Last Done Comments Depression Screening 1957 Zoster (Shingles) Vaccine (1 of 2) 1996 Fall Risk Screening 2011 COVID-19 Vaccine (2023-2 5 season) 2024 08/27/2022, 10/03/2021, 01/25/2021, Additional history exists Influenza Vaccine 07/06/2025 10/24/2024, , 08/14/2022, Additional history exists Tobacco Screening 04/23/2026 04/23/2025 DTaP,Tdap and Td Vaccines (2 - Tdap) 11/08/2030 11/08/2020 Goals Goal Patient Goal Type Associated Problems Recent Progress Patient-Stated? Author <enter goal here> General Yes Marjorie Mclaughlin, DICK Note: Evaluation of progress towards goal: safe discharge pending clinical progress Medical Devices Implanted Type Area Automatic Machines Supervisor Device Identifier Shelf Expiration Date Model / Serial / Lot Cement Bn Bio 40gm Rpl [id number] - Sna - [id number] Implanted:Qt y: 2 on 02/14/2022 by Perry Garay Jr., DO at [facility] Cement Right: [employer] [id number] 06/04/2024 [id number] / NA / [id number] Component Ptlr 38mm Persona Alply Kn Strl Lf - Sna - [id number] Implanted:Qt y: 1 on 02/14/2022 by Perry Garay Jr., DO at [facility] Orthopedic Implant Right: [employer] [id number] 08/27/2029 [id number] / NA / [id number] Insert Artc 7-10 G-H 12mm Kn Fx Brng Prlng Nxgn Lpsflx Strl Rpl [id number] + [id number] - Sna - [id number] Implanted:Qt y: 1 on 02/14/2022 by Perry Garay Jr., DO at [facility] Orthopedic Implant Right: K[employer] [id number] 01/06/202759-3678-035-1 2 / NA / [id number] Component Fem G Kn Rt Cmnt Nxgn Lpsflx Opt Zml Prlng Strl Rpl [id number] + [id number] - Sna - [id number] Implanted:Qt y: 1 on 02/14/2022 by Perry Garay Jr., DO at [facility] Orthopedic Implant Right: [employer] [id number] 07/03/2030 [id number] 2 / NA / [id number] Plate Tib [id number] Nxgn Kn Cmnt Mdlr Stm Prect 8 Tiv Pmma Rpl [id number] + [id number] - Sna - [id number] Implanted:Qt y: 1 on 02/14/2022 by Perry Garay Jr., DO at [facility] Plate Right: [employer] [id number] 04/04/2028 [id number] 2 / NA / [id number] Explanted Type Area Automatic Machines Supervisor Device Identifier Shelf Expiration Date Model / Serial / Lot Screw Bn 35mm 6.5mm St Hip Actb Trlg Strl Rpl [id number] + [id number] + 32 - Sna - [id number] Explanted:Qty: 1 on 02/14/2022 by Perry Garay Jr., DO at [facility] Screw Right: [employer] 11/18/2031 [id number] / NA / [id number] Screw Bn 35mm 6.5mm St Hip Actb Trlg Strl Rpl [id number] + [id number] + 32 - Sna - [id number] Explanted:Qty: 1 on 02/14/2022 by Perry Garay Jr., DO at [facility] Screw Right: [employer] 10/28/2031 [id number] / NA / [id number] Screw Gd 48mm Qd-Spr Hex Hd Mis Strl - Sna - [id number] Explanted:Qty: 2 on 02/14/2022 by Perry Garay Jr., DO at [facility] Screw Right: [employer] 12/15/2031 [id number] / NA / [id number] Procedures Procedure Name Priority Date/Time Associated Diagnosis Comments BASIC METABOLIC PANEL Routine 04/29/2025 5:48 AM EDT CBC WITH AUTO DIFFERENTIAL Routine 04/29/2025 5:48 AM EDT BASIC METABOLIC PANEL Routine 04/28/2025 5:24 AM EDT CBC WITH AUTO DIFFERENTIAL Routine 04/28/2025 5:24 AM EDT POTASSIUM Routine 04/27/2025 6:42 PM EDT CBC WITH AUTO DIFFERENTIAL Routine 04/27/2025 5:38 AM EDT EXTRA TUBES PST TOP Routine 04/27/2025 5 :37 AM EDT BASIC METABOLIC PANEL Add-On 04/27/2025 5:37 AM EDT MAGNESIUM Add-On 04/27/2025 5:37 AM EDT EXTRA TUBES Routine 04/27/2025 5:37 AM EDT BASIC METABOLIC PANEL Routine 04/26/2025 7:37 AM EDT CBC WITH AUTO DIFFERENTIAL Routine 04/26/2025 7:37 AM EDT BASIC METABOLIC PANEL Routine 04/25/2025 6:17 AM EDT CBC WITH AUTO DIFFERENTIAL Routine 04/25/2025 6:17 AM EDT FL SWALLOW MOTILITY FUNCTION Routine 04/24/2025 9:59 AM EDT URINALYSIS Routine 04/23/2025 5:08 PM EDT EEG VIDEO MONITORING Routine 04/23/2025 12:24 PM EDT DISCONTINUE IN PROCESS EEG TESTING Routine 04/23/2025 12:24 PM EDT AMMONIA Routine 04/23/2025 11:35 AM EDT FL FLUOROSCOPY UP TO 1 HOUR Routine 04/23/2025 8:53 AM EDT EEG VIDEO MONITORING Routine 04/23/2025 6:00 AM EDT EEG Routine 04/23/2025 4:24 AM EDT FOLATE Add-On 04/23/2025 1:17 AM EDT TSH Add-On 04/23/2025 1:17 AM EDT VITAMIN B12 Add-On 04/23/2025 1:17 AM EDT LIVER PANEL Add-On 04/23/2025 1:17 AM EDT CBC WITH AUTO DIFFERENTIAL Routine 04/23/2025 1:17 AM EDT BASIC METABOLIC PANEL Routine 04/23/2025 1:17 AM EDT PULSE OXIMETRY, SPOT Routine 04/23/2025 12:11 AM EDT MR LUMBAR SPINE WO CONT Routine 04/22/2025 10:25 AM EDT Pain MR BRAIN WO CONT Routine 04/21/2025 4:35 PM EDT Pain XR CHEST 2 VWS Routine 04/21/2025 1:10 PM EDT Pain VASC VENOUS DUPLEX LOWER BILATERAL Routine 04/20/2025 7:[address] ABDOMEN AND PELVIS WO CONT Routine 04/20/2025 6:[address] BRAIN WO CONT Routine 04/20/2025 3:30 PM EDT Pain XR CHEST 1 VW Routine 04/20/2025 3:00 PM EDT Pain from Last 3 Months Results * CBC auto differential (04/29/2025 5:48 AM EDT) Only the most recent of6 resultswithin the time period is included. WBC 6.1 4 - 11 x10E9/L 04/29/2025 6:37 AM EDT [facility] RBC Count 4.46 4.1 - 5.7 X10E12/L 04/29/2025 6:37 AM EDT [facility] Hemoglobin 13.1 13 - 17 g/dL 04/29/2025 6:37 AM EDT [facility] Hematocrit 39.0 39 - 50 % 04/29/2025 6:37 AM EDT [facility] MCV 88 80 - 100 fL 04/29/2025 6:37 AM EDT [facility] MCH 29.4 27 - 34 pg 04/29/2025 6:37 AM EDT [facility] MCHC 33.6 32 - 36 g/dL 04/29/2025 6:37 AM EDT [facility] RDW 14.4 11.5 - 15 % 04/29/2025 6:37 AM EDT [facility] Platelet Count 235 150 - 450 X10E9/L 04/29/2025 6:37 AM EDT [facility] MPV 9.6 7 - 12 fL 04/29/2025 6:37 AM EDT [facility] Neutrophils % 65.2 % 04/29/2025 6:37 AM EDT [facility] Lymphocytes % 18.3 % 04/29/2025 6:37 AM EDT [facility] Monocytes % 13.7 % 04/29/2025 6:37 AM EDT [facility] Eosinophils % 2.2 % 04/29/2025 6:37 AM EDT [facility] Basophils % 0.6 % 04/29/2025 6:37 AM EDT [facility] Neutrophils Absolute (A) 4.0 1.5 - 6.6 10*3/uL 04/29/2025 6:37 AM EDT [facility] Lymphocytes Absolute 1.1 1.0 - 3.5 10*3/uL 04/29/2025 6:37 AM EDT [facility] Monocytes Absolute 0.8 0.0 - 0.9 10*3/uL 04/29/2025 6:37 AM EDT [facility] Eosinophils Absolute 0.1 0.0 - 0.4 10*3/uL 04/29/2025 6:37 AM EDT [facility] Basophils Absolute 0.0 0.0 - 0.2 10*3/uL 04/29[facility]25 [facility] Differential Type AUTOMATED DIFFERENTIAL 04/29/2025 6:37 AM EDT [facility] Blood Venous blood / Unknown Venipuncture / Unknown 04/29/2025 5:48 AM EDT 04/29/2025 5:48 AM EDT us Mikie Mcleod MD LAB BLOOD ORDERABLES Final Resu lt [facility] [address] [place] [address], * (ABNORMAL) Basic Metabolic Panel (04/29/2025 5:48 AM EDT) Only the most recent of6 resultswithin the time period is included. SODIUM 141 134 - 146 mmol/L 04/29/2025 6:57 AM EDT [facility] POTASSIUM 3.5 3.5 - 5.0 mmol/L 04/29/2025 6:57 AM EDT [facility] CHLORIDE 102 98 - 109 mmol/L 04/29/2025 6:57 AM EDT [facility] CARBON DIOXIDE 30 22 - 32 mmol/L 04/29/2025 6:57 AM EDT [facility] ANION GAP 9 5 - 15 mmol/L 04/29/2025 6:57 AM EDT [facility] BLOOD UREA NITROGEN 22 5 - 27 mg/dL 04/29/2025 6:57 AM EDT [facility] CREATININE 0.62 0.60 - 1.30 mg/dL 04/29/2025 6:57 AM EDT [facility] Comment:METHOD TRACEABLE TO IDMS STANDARD GLUCOSE 107(H) 65 - 99 mg/dL 04/29/2025 6:57 AM EDT [facility] CALCIUM 9.7 8.5 - 10.5 mg/dL 04/29/2025 6:57 AM EDT [facility] EGFR Non-Race Dependent >90 >=60 ml/min/1.7 3sq.m 04/29/2025 6:57 AM EDT [facility] Comment: Reported eGFR is based on the CKD-EPI 2020 equation that does not use a race coefficient. Blood Venous blood / Unknown Venipuncture / Unknown 04/29/2025 5:48 AM EDT 04/29/2025 5:48 AM EDT Mikie Mcleod MD LAB BLOOD ORDERABLES Final Resu lt [facility] [address] [place] [address], * (ABNORMAL) Potassium (04/27/2025 6:42 PM EDT) POTASSIUM 3.4(L) 3.5 - 5.0 mmol/L 04/27/2025 7:47 PM EDT [facility] Blood Venous blood / Unknown Venipuncture / Unknown 04/27/2025 6:42 PM EDT 04/27/2025 6:42 PM EDT Amira Howe PA-C LAB BLOOD ORDERABLES Final Re sult [facility] [address] [place] [address], * PST TOP (04/27/2025 5:37 AM EDT) Extra Tube Auto Resulted 04/27/2025 7:01 AM EDT [facility] Blood Venous blood / Unknown 04/27/2025 5:37 AM EDT 04/27/2025 6:10 AM EDT Mikie Mcleod MD LAB BLOOD ORDERABLES Final Resu lt [facility] [address] [place] [address], * Magnesium (04/27/2025 5:37 AM EDT) MAGNESIUM 2.0 1.8 - 2.6 mg/dL 04/27/2025 9:29 AM EDT [facility] Blood Venous blood / Unknown 04/27/2025 5:37 AM EDT 04/27/2025 6:10 AM EDT us Mikie Mcleod MD LAB BLOOD ORDERABLES Final Resu lt [facility] [address] [place] [address], [place] [phone] * Fluoroscopy swallow motility function (04/24/2025 9:59 AM EDT) Anatomical Region Laterality Modality Chest, Abdomen, Body Radio Fluor oscopy 04/24/2025 10:0 5 AM EDT Narrative 04/24/2025 11:15 AM EDT FL SWALLOW MOTILITY FUNCTION HISTORY: Oropharyngeal dysphagia COMPARISON: None TECHNIQUE: Video fluoroscopic swallow study was performed in conjunction with speech pathologist. Barium contrast materials of varying consistencies administered. FINDINGS: Fluoroscopy time: 1.5 minute Reference air kerma: 1.2 mGy Runs: A Thin: Penetration with straw. No penetration or aspiration with cup. Applesauce: No penetration or aspiration. Fruit: No penetration or aspiration. Cracker: No penetration or aspiration. IMPRESSION: 1. Abnormal swallow study as described above. No aspiration.. 2. Please correlate with dedicated speech pathology report for additional details and recommendations. Approved by Res Deonte James MD on 04/24/2025 10:05 AM Juan R Rollins MD have personally reviewed the image(s) and agree with and/or edited the report Finalized by Juan R Jeffrey MD on 04/24/2025 11:15 AM Procedure Note Juan R Jeffrey MD - 04/24/2025 FL SWALLOW MOTILITY FUNCTION HISTORY: Oropharyngeal dysphagia COMPARISON: None TECHNIQUE: Video fluoroscopic swallow study was performed in conjunctionwith speech pathologist. Barium contrast materials of varyingconsistencies administered. FINDINGS: Fluoroscopy time: 1.5 minute Reference air kerma: 1.2 mGy Runs: A Thin: Penetration with straw. No penetration or aspiration with cup. Applesauce: No penetration or aspiration. Fruit: No penetration or aspiration. Cracker: No penetration or aspiration. IMPRESSION: 1. Abnormal swallow study as described above. No aspiration.. 2. Please correlate with dedicated speech pathology report for additionaldetails and recommendations. Approved by Manuelito James MD on 04/24/2025 10:05 AM Juan R Rollins MD have personally reviewed the image(s) and agree withand/or edited the report Finalized by Juan R Jeffrey MD on 04/24/2025 11:15 AM Florentino Tran MD IMG FLUOROSCOPY ORDERABLES Final Result * Urinalysis (04/23/2025 5:08 PM EDT) COLOR Yellow Yellow, Colorless 04/23/2025 5:47 PM EDT [facility] TURBIDITY Clear Clear 04/23/2025 5:47 PM EDT [facility] SPECIFIC GRAVITY 1.020 1.003 - 1.035 04/23/2025 5:47 PM EDT [facility] NITRITE Negative Negative 04/23/2025 5:47 PM EDT [facility] PH,URINE 7.0 5.0 - 8.5 04/23/2025 5:47 PM EDT [facility] LEUKOCYTE ESTERASE Negative Negative 04/23/2025 5:47 PM EDT [facility] PROTEIN Negative Negative 04/23/2025 5:47 PM EDT [facility] KETONES (URINE) Negative Negative 5:47 PM EDT [facility] UROBILINOGEN <1.1 eu/dL <1.1 eu/dL 04/23/2025 5:47 PM EDT [facility] BILIRUBIN (URINE) Negative Negative 04/23/2025 5:47 PM EDT [facility] BLOOD/HGB Negative Negative 04/23/2025 5:47 PM EDT [facility] GLUCOSE (URINE) Negative Negative 5:47 PM EDT [facility] Urine Urine / Unknown 04/23/2025 5 :08 PM EDT 04/23/2025 5:22 PM EDT us Mikie Mcleod MD URINE ORDERABLES Final Result [facility] [address] [place] [address], [place] [phone] * EEG VIDEO MONITORING (04/23/2025 12:24 PM EDT) Narrative MANUALLY TRANSCRIBED RESULTS - 04/23/2025 12:42 PM EDT Images from the original result were not included. MD Neurology Video/EEG Monitoring REPORT EEG Service Date(s): 04/23/25 from 06:05 until 09:09 Date of Report: 04/23/25 History: Edvin Tsai is 79 y.o. male with altered mental status who is undergoing video/EEG monitoring to evaluate for seizures. Centrally active medications: None. Procedure: This video/EEG monitoring was acquired with electrodes placed according to the [id number] electrode placement system,using collodion. The EEG was reviewed using multiple, reformattable montages. Closed captioned video monitoring of behavior, synchronous with EEG recording is included in the analysis, as is digital/spectral analysis of EEG waveforms. A single EKG channel was recorded for cardiac rhythm monitoring. Technical description: Background is composed of 5-10 V diffuse beta frequency intermixed with 15-25 V theta and intermittent 30-50 multifocal polymorphic delta frequency. The posterior dominant rhythm reaches 8 Hz, but is not well-sustained. No epileptiform abnormalities are noted in the form of spikes or sharp waves. No electrographic seizure activity is recorded. Stage II sleep is noted, correlated with the presence of bilaterally symmetric spindle activity and generalized delta frequencies. EEG diagnosis: This video/EEG monitoring is abnormal due to the presence of mild to moderate generalized background slowing. EEG interpretation: This video/EEG monitoring is abnormal due to the presence of mild to moderate generalized background slowing, consistent with encephalopathy of nonspecific etiology. The absence of epileptiform abnormalities does not exclude the possibility of intermittent seizures. Video/EEG monitoring was discontinued on this day. Cydney Fernandez M.D., Ph.D. Notched Blade Loader MD Neurology Background Radha Melendez MD NEUROLOGY ORDERABLES Final Result MANUALLY TRANSCRIBED RESULTS * DISCONTINUE IN PROCESS EEG TESTING (04/23/2025 12:24 PM EDT) Latonya Goodrich MD NEUROLOGY ORDERABLES Final Resul t * Ammonia (04/23/2025 11:35 AM EDT) AMMONIA 22 18 - 72 umol/L 04/23/2025 12:21 PM EDT [facility] Comment:R-Specimen slightly hemolyzed, results increased Blood Venous blood / Unknown Venipuncture / Unknown 04/23/2025 11:35 AM EDT 04/23/2025 11:35 AM EDT Latonya Goodrich MD LAB BLOOD ORDERABLES Final Resul t Performing Organization Address City/[facility] de Phone Number [facility] [address] [place] [address], [place] [phone] * Fluoroscopy less than one hour (04/23/2025 8:53 AM EDT) Anatomical Region Laterality Modality Radio Fluoroscop y 04/23/2025 9:45 AM EDT Narrative 04/23/2025 10:07 AM EDT FL FLUOROSCOPY UP TO 1 HOUR HISTORY: Oropharyngeal dysphagia COMPARISON: None TECHNIQUE: Video fluoroscopic swallow study was performed in conjunction with speech pathologist. Barium contrast materials of varying consistencies administered. FINDINGS: Fluoroscopy time: 0.2 Reference air kerma: 0.4 mGy Runs: 2 Swallow study unable to be performed due to patient refusal. IMPRESSION: Swallow study unable to be performed due to patient refusal. Approved by Manuelito James MD on 04/23/2025 9:45 AM Wilbert Rollins have personally reviewed the image(s) and agree with and/or edited the report Finalized by Wilbert Crews on 04/23/2025 10:07 AM Procedure Note Wilbert Crews MD - 04/23/2025 FL FLUOROSCOPY UP TO 1 HOUR HISTORY: Oropharyngeal dysphagia COMPARISON: None TECHNIQUE: Video fluoroscopic swallow study was performed in conjunctionwith speech pathologist. Barium contrast materials of varyingconsistencies administered. FINDINGS: Fluoroscopy time: 0.2 Reference air kerma: 0.4 mGy Runs: 2 Swallow study unable to be performed due to patient refusal. IMPRESSION: Swallow study unable to be performed due to patient refusal. Approved by Res Deonte James MD on 04/23/2025 9:45 AM IWilbert have personally reviewed the image(s) and agree with and/oredited the report Finalized by Wilbert Crews on 04/23/2025 10:07 AM Florentino Tran MD IMG FLUOROSCOPY ORDERABLES Final Result * EEG VIDEO MONITORING IN PROGRESS (04/23/2025 6:00 AM EDT) Narrative MANUALLY TRANSCRIBED RESULTS - 04/23/2025 11:38 AM EDT Images from the original result were not included. MD Neurology Video/EEG Monitoring REPORT EEG Service Date(s): 04/23/25 @ 04:26 until 06:05 Date of Report: 04/23/25 History: Edvin Tsai is 79 y.o. male with altered mental status who is undergoing video/EEG monitoring to evaluate for seizures. Centrally active medications: None. Procedure: This video/EEG monitoring was acquired with electrodes placed according to the [id number] electrode placement system,using collodion. The EEG was reviewed using multiple, reformattable montages. Closed captioned video monitoring of behavior, synchronous with EEG recording is included in the analysis, as is digital/spectral analysis of EEG waveforms. A single EKG channel was recorded for cardiac rhythm monitoring. Technical description: Background is composed of 5-10 V diffuse beta frequency intermixed with 15-25 V theta and intermittent 30-50 multifocal polymorphic delta frequency. There is no sustained alpha frequency or posterior dominant rhythm. No epileptiform abnormalities are noted in the form of spikes or sharp waves. No electrographic seizure activity is recorded. Stage II sleep is noted, correlated with the presence of bilaterally symmetric spindle activity and generalized delta frequencies. EEG diagnosis: This video/EEG monitoring is abnormal due to the presence of mild to moderate generalized background slowing. EEG interpretation: This video/EEG monitoring is abnormal due to the presence of mild to moderate generalized background slowing, consistent with encephalopathy of nonspecific etiology. The absence of epileptiform abnormalities does not exclude the possibility of intermittent seizures. Cydney Fernandez M.D., Ph.D. Notched Blade Loader MD Neurology Background us Radha Melendez MD NEUROLOGY ORDERABLES Final Result MANUALLY TRANSCRIBED RESULTS * EEG (04/23/2025 4:24 AM EDT) Narrative MANUALLY TRANSCRIBED RESULTS - 04/23/2025 11:23 AM EDT Images from the original result were not included. MD Neurology EEG REPORT EEG Service Date: 04/23/25 Date of Report: 04/23/25 History: Edvin Tsai is a 79 y.o. male with long-term post-operative altered mental status since February, who is undergoing EEG to evaluate for seizures. Centrally active medications: None. Procedure: This EEG was acquired with electrodes placed according to the [id number] electrode placement system. The EEG was acquired and reviewed using multiple, reformattable montages. A single EKG channel was recorded for cardiac rhythm monitoring. Technical description: Background is composed of 5-10 V diffuse beta frequency intermixed with 15-25 V theta and intermittent 30-50 multifocal polymorphic delta frequency. There is no sustained alpha frequency or posterior dominant rhythm. No epileptiform abnormalities are noted in the form of spikes or sharp waves. No electrographic seizure activity is recorded. Stage II sleep is noted, correlated with the presence of bilaterally symmetric spindle activity and generalized delta frequencies. Hyperventilation was performed, producing mild generalized background slowing.. Photic stimulation failed to elicit posterior driving responses. EEG diagnosis: This EEG is abnormal due to the presence of mild to moderate generalized background slowing. EEG interpretation: This EEG is abnormal due to the presence of mild to moderate generalized background slowing, consistent with encephalopathy of nonspecific etiology. The absence of epileptiform abnormalities does not exclude the possibility of intermittent seizures. Video/EEG monitoring is to follow this study. Cydney Fernandez M.D., Ph.D. Notched Blade Loader [facility] Radha Melendez MD NEUROLOGY ORDERABLES Final Result MANUALLY TRANSCRIBED RESULTS * TSH (04/23/2025 1:17 AM EDT) TSH 1.90 0.49 - 4.67 uIU/mL 04/23/2025 10:08 AM EDT [facility] Blood Venous blood / Unknown 04/23/2025 1:17 AM EDT 04/23/2025 1:17 AM EDT Mikie Mcleod MD LAB BLOOD ORDERABLES Final Resu lt Performing Organization Address City/[facility]/ZIP Co de Phone Number [facility] [address] [place] [address], [place] [phone] * Folate (04/23/2025 1:17 AM EDT) FOLIC ACID >25.0 >5.8 ng/mL 04/23/2025 10:08 AM EDT [facility] Blood Venous blood / Unknown 04/23/2025 1:17 AM EDT 04/23/2025 1:17 AM EDT Mikie Mcleod MD LAB BLOOD ORDERABLES Final Resu lt Performing Organization Address City/[facility]/ZIP Co de Phone Number [facility] [address] [place] [address], [place] [phone] * Vitamin B12 (04/23/2025 1:17 AM EDT) VITAMIN B12 689 180 - 914 pg/mL 04/23/2025 10:08 AM EDT [facility] Blood Venous blood / Unknown 04/23/2025 1:17 AM EDT 04/23/2025 1:17 AM EDT Mikie Mcleod MD LAB BLOOD ORDERABLES Final Resu lt [facility] [address] [place] [address], [place] [phone] * Liver panel (04/23/2025 1:17 AM EDT) TOTAL PROTEIN 6.3 6.0 - 8.0 g/dL 04/23/2025 9:29 AM EDT [facility] ALBUMIN 3.9 3.2 - 5.3 g/dL 04/23/2025 9:29 AM EDT [facility] BILIRUBIN,TOTAL 0.6 0.3 - 1.2 mg/dL 04/23/2025 9:29 AM EDT [facility] ALKALINE PHOSPHATASE 121 39 - 130 U/L 04/23/2025 9:29 AM EDT [facility] AST 32 <=41 U/L 04/23/2025 9:29 AM EDT [facility] ALT 12 <=40 U/L 04/23/2025 9:29 AM EDT [facility] BILIRUBIN,DIRECT 0.1 <=0.4 mg/dL 04/23/2025 9:29 AM EDT [facility] Comment:R-Specimen moderatel y hemolyzed, results decreased Blood Venous blood / Unknown 04/23/2025 1:17 AM EDT 04/23/2025 1:17 AM EDT us Mikie Mcleod MD LAB BLOOD ORDERABLES Final Resu lt [facility] [address] [place] [address], [place] [phone] * MR lumbar spine without contrast (04/22/2025 10:25 AM EDT) us Scanning Provider External IMG MRI ORDERABLES Fi nal Result * MR brain without contrast (04/21/2025 4:35 PM EDT) us Scanning Provider External IMG MRI ORDERABLES Fi nal Result * X-ray chest 2 views (04/21/2025 1:10 PM EDT) us Scanning Provider External IMG DIAGNOSTIC IMAGIN G ORDERABLES Final Result * Vas venous duplex lwr bilateral (04/20/2025 7:30 PM EDT) us Scanning Provider External CV VASCULAR ORDERABLE S Final Result MEDSTREAMING * CT abdomen and pelvis without contrast (04/20/2025 6:15 PM EDT) us Scanning Provider External IMG CT ORDERABLES Fin al Result * CT brain without contrast (04/20/2025 3:30 PM EDT) us Scanning Provider External IMG CT ORDERABLES Fin al Result * X-ray chest 1 view (04/20/2025 3:00 PM EDT) us Scanning Provider External IMG DIAGNOSTIC IMAGIN G ORDERABLES Final Result from Last 3 Months Insurance [employer] MEDICARE Advance Directives * Full Code (Latest Code Status on File) Date Activated Date Inactivated Comments 04/23/2025 12:11 AM 04/29/2025 12:45 PM * Full Code Date Activated Date Inactivated Comments 02/14/2022 5:01 PM 02/15/2022 5:17 PM Care Teams Peanut Separator Relationship Specialty Start Date End Date Devang Keyes DO [address] [place] [address] PCP - General Internal Medicine 01/27/22
--- OUTSIDE RECORDS SUMMARY | 2025-06-18 09:10 | XMS_ITS | Encounter Summary ---
Author Organization [facility] Address [address] [place] [address] Phone Care Team Providers Care Border Patrol Agent Name Role Phone Devang Keyes DO Primary Care Provider [phone] Anita Schmid MD Unavailable [phone] Devang Keyes DO Primary Care Provider [phone] Encounter Details Date Type Department Care Team (Late st Contact Info) Description 04/20/2025 Scanned Document [facility] [address] [place] [id number] Scanning, Generic Provider Social History Tobacco Use [...] Description 01/28/2026 9:30 AM EDT Office Visit [facility] [address] [facility] [address] [place] [address] Marisol Alas MD [address] [facility] [address] [place] [address] documented as of this encounter Procedures Procedure Name Priority Date/Time Associated Diagnosis Comments ECHOCARDIOGRAM 04/20/2025 documented in this encounter Results * Echocardiogram (04/20/2025) Narrative 04/20/2025 Ordered by an unspecified provider. us Generic Provider Scanning CV ECHO PROCEDURES Fin al Result documented in this encounter Visit Diagnoses Not on filedocumented in this encounter Additional Health Concerns Assessment Noted Time A fall risk assessment has been complete d for the patient 01/28/2025 10:36 AM EDT documented as of this encounter Care Teams Border Patrol Agent Relationship Specialty Start Date End Date Devang Keyes DO PCP - General Internal Medicine 11/14/23 06/16/25 Devang Keyes DO [address] [place] [address] PCP - General Internal Medicine 06/17/25 Anita Schmid MD Referring Physician 01/28/25 documented as of this encounter
--- OUTSIDE RECORDS SUMMARY | 2025-06-18 09:10 | XMS_ITS | Encounter Summary ---
Author Organization [facility] Address [address] [place] [address] Phone Care Team Providers Care Controls Design Engineer Name Role Phone Devang Keyes DO Primary Care Provider [phone] Anita Schmid MD Unavailable [phone] Devang Keyes DO Primary Care Provider [phone] Encounter Details Date Type Department Care Team (Late st Contact Info) Description 02/04/2025 Scanned Document [facility] [address] [place] [id number] Scanning, Generic Provider Social History Tobacco Use [...] Exposure Response Date Recorded In the last 10 days, have yo u been in contact with someone who was confirmed or suspected to have Coronavirus/COVID-19? No / Unsure 01/28/2025 10:22 AM EDT documented as of this encounter Plan of Treatment Upcoming Encounters Date Type Department Care Team (Late st Contact Info) Description 01/28/2026 9:30 AM EDT Office Visit [place] [address] [phone] Marisol Alas MD 7[address] [facility], [facility] [address] [place] [address] documented as of this encounter Visit Diagnoses Not on filedocumented in this encounter Additional Health Concerns Assessment Noted Time A fall risk assessment has been complete d for the patient 01/28/2025 10:36 AM EDT documented as of this encounter Care Teams Controls Design Engineer Relationship Specialty Start Date End Date Devang Keyes DO PCP - General Internal Medicine 11/14/23 06/16/25 Devang Keyes DO [address] [place] [address] PCP - General Internal Medicine 06/17/25 Anita Schmid MD Referring Physician 01/28/25 documented as of this encounter
--- OUTSIDE RECORDS SUMMARY | 2025-06-18 09:10 | XMS_ITS | Encounter Summary ---
Author Organization [facility] Address [address] [place] [address] Care Team Providers Care Cane Flume Chute Operator Name Role Phone Devang Keyes Primary Care Provider [phone] Source Comments In the event this information is protected by the Federal Confidentiality of Alcohol and Drug AbusePatient Records regulations: The Federal rules restrict any use of the information to criminally investigate or prosecute any alcohol or drug abuse patient.[facility] Encounter Details Date Type Department Care Team (Late st Contact Info) Description 05/05/2020 Patient [facility] [address] [place] [id number] Orestes Moreland MD [address] [place], [place] [id number] RE:Test Results Social History Tobacco Use Types [...] on filedocumented in this encounter Care Teams Cane Flume Chute Operator Relationship Specialty Start Date End Date Devang Keyes DO PCP - General Internal Medicine 07/19/15 documented as of this encounter
--- OUTSIDE RECORDS SUMMARY | 2025-06-18 09:10 | XMS_ITS | Encounter Summary ---
Author Organization [facility] Address [address] [place] [address] Phone Care Team Providers Care Electron Beam Operator Name Role Phone Devang Keyes DO Primary Care Provider [phone] Devang Keyes DO Primary Care Provider [phone] Anita Schmid MD Unavailable [phone] Devang Keyes DO Primary Care Provider [phone] Encounter Details Date Type Department Care Team (Late st Contact Info) Description 03/14/2023 Orders Only [facility] [address] [place] [address] Conversion, Onbase Social History Tobacco Use Types [...] Description 01/28/2026 9:30 AM EDT Office Visit [facility] [address] [facility] [address] [place] [address] Marisol Alas MD [address] [place] [address] Scheduled Orders Name Type Priority Associated Diagnoses Orde r Schedule OUTSIDE LAB SCAN Lab Ordered: 03/14/2023 documented as of this encounter Visit Diagnoses Not on filedocumented in this encounter Care Teams Electron Beam Operator Relationship Specialty Start Date End Date Devang Keyes DO PCP - General 11/05/99 11/13/23 Devang Keyes DO PCP - General Internal Medicine 11/14/23 06/16/25 Devang Keyes DO [address] [facility] [place] [address] PCP - General Internal Medicine 06/17/25 Anita Schmid MD Referring Physician 01/28/25 documented as of this encounter
--- OUTSIDE RECORDS SUMMARY | 2025-06-18 09:10 | XMS_ITS | Encounter Summary ---
Author Organization [facility] Address [id number] [address] [place] [address] Care Team Providers Care Brusher Warp Name Role Phone Devang Keyes DO Primary Care Provider [phone] Encounter Details Date Type Department Care Team (Late st Contact Info) Description 03/05/2025 Orders Only [facility] [address] [place] [phone] Transcribe, Orders Support User Pain (Primary [...] on file documented as of this encounter Results * CT brain without contrast (03/02/2025 8:10 AM EDT) us Scanning Provider External IMG CT ORDERABLES Fin al Result documented in this encounter Visit Diagnoses Diagnosis Pain- Primary Generalized pain documented in this encounter Care Teams Brusher Warp Relationship Specialty Start Date End Date Devang Keyes DO [address] [place] [address] PCP - General Internal Medicine 01/27/22 documented as of this encounter
--- OUTSIDE RECORDS SUMMARY | 2025-06-18 09:10 | XMS_ITS | Encounter Summary ---
Author Organization [facility] Address [address] [place] [address] Phone Care Team Providers Care Vineyard Tender Name Role Phone Devang Keyes DO Primary Care Provider [phone] Devang Keyes DO Primary Care Provider [phone] Anita Schmid MD Unavailable [phone] Devang Keyes DO Primary Care Provider Encounter Details Date Type Department Care Team (Late st Contact Info) Description 04/26/2021 Orders Only [facility] [address] [place] [address] Conversion, Onbase Social History Tobacco Use Types [...] Description 01/28/2026 9:30 AM EDT Office Visit [facility] [address] [facility] [address] [place] [address] Marisol Alas MD [address] [place] [address] Scheduled Orders Name Type Priority Associated Diagnoses Orde r Schedule OUTSIDE LAB SCAN Lab Ordered: 04/26/2021 documented as of this encounter Visit Diagnoses Not on filedocumented in this encounter Care Teams Vineyard Tender Relationship Specialty Start Date End Date Devang Keyes DO PCP - General 11/05/99 11/13/23 Devang Keyes DO PCP - General Internal Medicine 11/14/23 06/16/25 Devang Keyes DO [address] [facility] [place] [address] PCP - General Internal Medicine 06/17/25 Anita Schmid MD Referring Physician 01/28/25 documented as of this encounter
--- OUTSIDE RECORDS SUMMARY | 2025-06-18 09:10 | XMS_ITS | Encounter Summary ---
Author Organization [facility] Address [address] [place] [address] Phone Care Team Providers Care Orthodontic Treatment Coordinator Name Role Phone Devang Keyes DO Primary Care Provider [phone] Devang Keyes DO Primary Care Provider [phone] Anita Schmid MD Unavailable Devang Keyes DO Primary Care Provider Encounter Details Date Type Department Care Team (Late st Contact Info) Description 10/20/2020 Orders Only [facility] [address] [place] [address] Conversion, Onbase Social History Tobacco Use Types [...] Description 01/28/2026 9:30 AM EDT Office Visit [facility] [address] [facility] [address] [place] [address] Marisol Alas MD [address] [place] [address] Scheduled Orders Name Type Priority Associated Diagnoses Orde r Schedule OUTSIDE LAB SCAN Lab Ordered: 10/20/2020 documented as of this encounter Visit Diagnoses Not on filedocumented in this encounter Care Teams Orthodontic Treatment Coordinator Relationship Specialty Start Date End Date Devang Keyes DO PCP - General 11/05/99 11/13/23 Devang Keyes DO PCP - General Internal Medicine 11/14/23 06/16/25 Devang Keyes DO [address] [place] [address] PCP - General Internal Medicine 06/17/25 Anita Schmid MD Referring Physician 01/28/25 documented as of this encounter
--- OUTSIDE RECORDS SUMMARY | 2025-06-18 09:10 | XMS_ITS | Encounter Summary ---
Author Organization [facility] Address [address] [place] [address] Phone Care Team Providers Care Roof Shingler Name Role Phone Devang Keyes DO Primary Care Provider [phone] Devang Keyes DO Primary Care Provider [phone] Anita Schmid MD Unavailable Devang Keyes DO Primary Care Provider [phone] Encounter Details Date Type Department Care Team (Late st Contact Info) Description 02/15/2022 Orders Only [facility] [address] [place] [address] Conversion, Onbase Social History Tobacco Use Types [...] Description 01/28/2026 9:30 AM EDT Office Visit [facility] [address] [facility] [address] [place] [address] Marisol Alas MD [address] [place] [address] Scheduled Orders Name Type Priority Associated Diagnoses Orde r Schedule OUTSIDE LAB SCAN Lab Ordered: 02/15/2022 documented as of this encounter Visit Diagnoses Not on filedocumented in this encounter Care Teams Roof Shingler Relationship Specialty Start Date End Date Devang Keyes DO PCP - General 11/05/99 11/13/23 Devang Keyes DO PCP - General Internal Medicine 11/14/23 06/16/25 Devang Keyes DO [address] [place] [address] PCP - General Internal Medicine 06/17/25 Anita Schmid MD Referring Physician 01/28/25 documented as of this encounter
--- OUTSIDE RECORDS SUMMARY | 2025-06-18 09:10 | XMS_ITS | Encounter Summary ---
Author Organization [employer] [facility] [employer] Address [id number] [address] [place] [address] Care Team Providers Care Labor Operator Name Role Phone Devang Keyes Primary Care Provider [phone] Encounter Details Date Type Department Care Team (Late st Contact Info) Description 03/07/2025 Orders Only [facility] [address] [place] [phone] Transcribe, Orders Support User Pain (Primary [...] pain documented in this encounter Care Teams Labor Operator Relationship Specialty Start Date End Date Devang Keyes DO [address] [place] [address] PCP - General Internal Medicine 01/27/22 documented as of this encounter
--- OUTSIDE RECORDS SUMMARY | 2025-06-18 09:10 | XMS_ITS | Encounter Summary ---
Author Organization [facility] Address [address] [place] [address] Phone Care Team Providers Care Hr Assistant Name Role Phone Devang Keyes DO Primary Care Provider Anita Schmid MD Unavailable [phone] Devang Keyes DO Primary Care Provider [phone] Encounter Details Date Type Department Care Team (Late st Contact Info) Description 12/24/2023 Scanned Document [facility] [address] [place] [phone] Scanning, Generic Provider Social History Tobacco Use [...] Description 01/28/2026 9:30 AM EDT [facility] [address] [place] [address] Marisol Alas MD [address] [facility] [address] [place] [address] documented as of this encounter Visit Diagnoses Not on filedocumented in this encounter Additional Health Concerns Assessment Noted Time A fall risk assessment has been complete d for the patient 11/14/2023 10:31 AM EST documented as of this encounter Care Teams Hr Assistant Relationship Specialty Start Date End Date Devang Keyes DO PCP - General Internal Medicine 11/14/23 06/16/25 Devang Keyes DO [address] [place] [address] PCP - General Internal Medicine 06/17/25 Anita Schmid MD Referring Physician 01/28/25 documented as of this encounter
--- OUTSIDE RECORDS SUMMARY | 2025-06-18 09:10 | XMS_ITS | Clinical Summary ---
Author Organization [facility] Address [address] [place] [address] Care Team Providers Care Diesel Retrofit Installer Name Role Phone WaliDevang Iwona REYNA Primary Care Provider [phone] Allergies No known active allergies Medications amLODIPine [...] N ot on file 10/13/2020 Data from: https://www.[email or web address].medicine.[email or web address].edu/. Last address used for calculation Not on [...] 07/27/2020, 0 04/12/2018, 04/11/2018, Additional history exists Advance Directive Discussion 11/05/2024 Influenza Vaccine (#1) 2025 07/01/2020 Procedures Procedure Name Priority Date/Time Associated Diagnosis Comments HEMOGLOBIN A1C Routine 07/27/2020 11:05 AM EDT Idiopathic peripheral neuropathy Spinal stenosis, lumbar region, without neurogenic claudication from Last 3 Months or Most Recently Relevant to Health Maintenance Results * (ABNORMAL) HGB A1C (07/27/2020 11:05 AM EDT) Hemoglobin A1C 5.8(H) 4.3 - 5.6 % 07/27/2020 6:25 PM EDT [facility] Comment: [place] Diabetes [employer] guidelines indicate that patients with HgbA1c in the range 5.7-6.4% are at increased risk for development of diabetes, and intervention by lifestyle modification may be beneficial. HgbA1c greater or equal to 6.5% is considered diagnostic of diabetes. Estimated Average Glucose 120 mg/dL 07/27/2020 6:25 PM EDT [facility] Comment: eAG: (Estimated average glucose) is a calculated value from HgbA1c and is dealer compliance representative of the average blood glucose level in the last 2-3 month period. Blood WHOLE BLOOD SPECIMEN / Unknown 07/27/2020 11:05 AM EDT 07/27/2020 11:07 AM EDT us Alanis Nguyen MD LABORATORY Final Result [facility] [address] [place] [address] [facility] [address] [place] [address] from Last 3 Months or Most Recently Relevant to Health Maintenance Insurance [employer] MEDICARE Care Teams Diesel Retrofit Installer Relationship Specialty Start Date End Date Devang Keyes DO PCP - General Internal Medicine 07/19/15
--- OUTSIDE RECORDS SUMMARY | 2025-06-18 09:10 | XMS_ITS | Encounter Summary ---
Author Organization [facility] Address [address] [place] [address] Phone Care Team Providers Care Camp Cook Name Role Phone Devang Keyes Primary Care Provider [phone] Anita Schmid MD Unavailable [phone] Encounter Details Date Type Department Care Team (Latest Contact Info) Description 06/10/2025 Travel Social History Tobacco Use Types Packs/Day Years [...] Description 01/28/2026 9:30 AM EDT Office Visit [facility] [address] [facility] [address] [place] [address] Marisol Alas MD [address] [facility] [address] [place], [place] [id number] documented as of this encounter Visit Diagnoses Not on filedocumented in this encounter Additional Health Concerns Assessment Noted Time A fall risk assessment has been complete d for the patient 01/28/2025 10:36 AM EDT documented as of this encounter Care Teams Camp Cook Relationship Specialty Start Date End Date Devang Keyes DO PCP - General Internal Medicine 11/14/23 06/16/25 Anita Schmid MD Referring Physician 01/28/25 documented as of this encounter
--- OUTSIDE RECORDS SUMMARY | 2025-06-18 09:10 | XMS_ITS | Encounter Summary ---
Author Organization [facility] Address [address] [place] [address] Phone Care Team Providers Care Accountant Machine Processing Name Role Phone Devang Keyes DO Primary Care Provider [phone] Devang Keyes DO Primary Care Provider [phone] Anita Schmid MD Unavailable Devang Keyes DO Primary Care Provider Encounter Details Date Type Department Care Team (Late st Contact Info) Description 01/25/2022 Orders Only [facility] [address] [place] [address] Conversion, Onbase Social History Tobacco Use Types [...] Description 01/28/2026 9:30 AM EDT Office Visit [facility] [address] [facility] [address] [place] [address] Marisol Alas MD [address] [place] [address] Scheduled Orders Name Type Priority Associated Diagnoses Orde r Schedule OUTSIDE LAB SCAN Lab Ordered: 01/25/2022 documented as of this encounter Visit Diagnoses Not on filedocumented in this encounter Care Teams Accountant Machine Processing Relationship Specialty Start Date End Date Devang Keyes DO PCP - General 11/05/99 11/13/23 Devang Keyes DO PCP - General Internal Medicine 11/14/23 06/16/25 Devang Keyes DO [facility] [facility] [place] [address] PCP - General Internal Medicine 06/17/25 Anita Schmid MD Referring Physician 01/28/25 documented as of this encounter
--- OUTSIDE RECORDS SUMMARY | 2025-06-18 09:10 | XMS_ITS | Encounter Summary ---
Author Organization [facility] Address [address] [place] [address] Phone Care Team Providers Care Hris Analyst Name Role Phone Anita Schmid MD Unavailable [phone] Devang Keyes DO Primary Care Provider [phone] Encounter Details Date Type Department Care Team (Latest Contact Info) Description 06/17/2025 Travel Social History Tobacco Use Types Packs/Day [...] Description 01/28/2026 9:30 AM EDT Office Visit [facility] [address] [facility] [address] [place] [address] Marisol Alas MD [address] [facility] [address] [place], [place] [id number] documented as of this encounter Visit Diagnoses Not on filedocumented in this encounter Additional Health Concerns Assessment Noted Time A fall risk assessment has been complete d for the patient 06/17/2025 9:27 AM EDT documented as of this encounter Care Teams Hris Analyst Relationship Specialty Start Date End Date Devang Keyes DO [address] [place] [address] PCP - General Internal Medicine 06/17/25 Anita Schmid MD Referring Physician 01/28/25 documented as of this encounter
--- OUTSIDE RECORDS SUMMARY | 2025-06-18 09:10 | XMS_ITS | Encounter Summary ---
Author Organization [facility] Address [address] [place] [address] Phone Care Team Providers Care Competitive Intelligence Manager Name Role Phone Devang Keyes DO Primary Care Provider [phone] Devang Keyes DO Primary Care Provider [phone] Anita Schmid MD Unavailable Devang Keyes DO Primary Care Provider Encounter Details Date Type Department Care Team (Late st Contact Info) Description 02/14/2022 Orders Only [facility] [address] [place] [address] Conversion, Onbase Social History Tobacco Use Types [...] Description 01/28/2026 9:30 AM EDT Office Visit [facility] [address] [facility] [address] [place] [address] Marisol Alas MD [address] [place] [address] Scheduled Orders Name Type Priority Associated Diagnoses Orde r Schedule OUTSIDE LAB SCAN Lab Ordered: 02/14/2022 documented as of this encounter Visit Diagnoses Not on filedocumented in this encounter Care Teams Competitive Intelligence Manager Relationship Specialty Start Date End Date Devang Keyes DO PCP - General 11/05/99 11/13/23 Devang Keyes DO PCP - General Internal Medicine 11/14/23 06/16/25 Devang Keyes DO [address] [place] [address] PCP - General Internal Medicine 06/17/25 Anita Schmid MD Referring Physician 01/28/25 documented as of this encounter
--- OUTSIDE RECORDS SUMMARY | 2025-06-18 09:10 | XMS_ITS | Encounter Summary ---
Author Organization [facility] Address [address] [place] [address] Phone Care Team Providers Care Mooner Name Role Phone Devang Keyes DO Primary Care Provider [phone] Devang Keyes DO Primary Care Provider [phone] Anita Schmid MD Unavailable Devang Keyes DO Primary Care Provider [phone] Encounter Details Date Type Department Care Team (Late st Contact Info) Description 09/27/2020 Orders Only [facility] [address] [place] [address] Conversion, Onbase Social History Tobacco Use Types [...] 01/28/2026 9:30 AM EDT Office Visit [facility] [address] [facility] [address] [place] [address] Marisol Alas MD [address] [place] [address] Scheduled Orders Name Type Priority Associated Diagnoses Orde r Schedule OUTSIDE LAB SCAN Lab Ordered: 09/27/2020 OUTSIDE LAB SCAN Lab Ordered: 09/27/2020 documented as of this encounter Visit Diagnoses Not on filedocumented in this encounter Care Teams Mooner Relationship Specialty Start Date End Date Devang Keyes DO PCP - General 11/05/99 11/13/23 Devang Keyes DO PCP - General Internal Medicine 11/14/23 06/16/25 Devang Keyes DO [address] [place] [address] [place] [address] PCP - General Internal Medicine 06/17/25 Anita Schmid MD Referring Physician 01/28/25 documented as of this encounter
--- OUTSIDE RECORDS SUMMARY | 2025-06-18 09:10 | XMS_ITS | Encounter Summary ---
Author Organization [facility] Address [address] [place] [address] Phone Care Team Providers Care Spring Coiler Hand Name Role Phone Devang Keyes DO Primary Care Provider [phone] Anita Schmid MD Unavailable [phone] Devang Keyes DO Primary Care Provider [phone] Encounter Details Date Type Department Care Team (Late st Contact Info) Description 04/29/2024 Scanned Document [facility] [address] [place] [id number] Scanning, Generic Provider Social History Tobacco Use [...] Description 01/28/2026 9:30 AM EDT Office Visit [facility] [address] [facility] [address] [place] [address] Marisol Alas MD [address] [facility] [address] [place] [address] documented as of this encounter Visit Diagnoses Not on filedocumented in this encounter Additional Health Concerns Assessment Noted Time A fall risk assessment has been complete d for the patient 11/14/2023 10:31 AM EST documented as of this encounter Care Teams Spring Coiler Hand Relationship Specialty Start Date End Date Devang Keyes DO PCP - General Internal Medicine 11/14/23 06/16/25 Devang Keyes DO [address] [place] [address] PCP - General Internal Medicine 06/17/25 Anita Schmid MD Referring Physician 01/28/25 documented as of this encounter
--- OUTSIDE RECORDS SUMMARY | 2025-06-18 09:10 | XMS_ITS | Encounter Summary ---
Author Organization [employer] Address [id number] [address] [place] [address] Care Team Providers Care Restorative Care Technician Name Role Phone WaliDevang Iwona REYNA Primary Care Provider [phone] Encounter Details Date Type Department Care Team (Late st Contact Info) Description 04/24/2025 Orders Only [facility] [address] [place] [phone] Transcribe, Orders Support User Pain (Primary Dx) Social History Tobacco Use Types Packs/Day Years Used Date Smoking Tobacco: Former Cigarettes Smokeless Tobacco: Never Comments:Smoked about 2 pack s a day in 80s Alcohol Use Standard Drinks/Week Comments Yes 1 (1 standard drink = 0.6 oz pur e alcohol) daily [facility] Utilities Answer Date Recorded In the past 12 months has e electric, gas, oil, or water company threatened to shut off services in your [...] <enter goal here> General Yes Marjorie Mclaughlin, RN Note: Evaluation of progress towards goal: safe discharge pending clinical progress documented as of this encounter Results * MR lumbar spine without contrast (04/22/2025 [...] IMG DIAGNOSTIC IMAGIN G ORDERABLES Final Result documented in this encounter Visit Diagnoses Diagnosis Pain- Primary Generalized pain documented in this encounter Care Teams Restorative Care Technician Relationship Specialty Start Date End Date Devang Keyes DO [address] [place] [address] PCP - General Internal Medicine 01/27/22 documented as of this encounter
--- OUTSIDE RECORDS SUMMARY | 2025-06-18 09:10 | XMS_ITS | Encounter Summary ---
Author Organization [facility] Address [address] [place] [address] Phone Care Team Providers Care Wool Classer Name Role Phone Devang Keyes DO Primary Care Provider [phone] Anita Schmid MD Unavailable [phone] Devang Keyes DO Primary Care Provider [phone] Encounter Details Date Type Department Care Team (Late st Contact Info) Description 04/21/2025 Scanned Document [facility] [address] [place] [id number] Scanning, Generic Provider Social History Tobacco Use [...] Description 01/28/2026 9:30 AM EDT Office Visit [facility] [address] [facility] [address] [place] [address] Marisol Alas MD [address] [facility] [address] [place] [address] documented as of this encounter Visit Diagnoses Not on filedocumented in this encounter Additional Health Concerns Assessment Noted Time A fall risk assessment has been complete d for the patient 01/28/2025 10:36 AM EDT documented as of this encounter Care Teams Wool Classer Relationship Specialty Start Date End Date Devang Keyes DO PCP - General Internal Medicine 11/14/23 06/16/25 Devang Keyes DO [address] [place] [address] PCP - General Internal Medicine 06/17/25 Anita Schmid MD Referring Physician 01/28/25 documented as of this encounter
--- OUTSIDE RECORDS SUMMARY | 2025-06-18 09:10 | XMS_ITS | Clinical Summary ---
Author Organization [facility] Address [address] [place] [address] Phone Care Team Providers Care Pattern Setter Name Role Phone Anita Schmid MD Unavailable [phone] Devang Keyes DO Primary Care Provider [phone] Allergies Active Allergy Reactions Criticality Noted Date Comments Hydrocodone-Acetaminophen Hallucinations 2022 Oxycodone Hallucinations 10/12/2023 Medications atorvastatin (Lipitor) 40 mg tabletIndicatio ns:Hyperlipidem ia, unspecified TAKE 1 TABLET BY MOUTH EVERY DAY 90 tablet 3 3 Active allopurinol (Zyloprim) 300 mg tablet Take 1 tablet (300 mg) by mouth once daily. 1 Active aspirin 81 mg chewable tablet Chew and swallow 1 tablet (81 mg) once daily. Active calcium carbonate 600 mg calcium (1,500 mg) tablet every 12 hours. Acti ve cyanocobalamin, vitamin B-12, (Vitamin B-12) 1,000 mcg tablet extended release Take 1 tablet (1,000 mcg) by mouth once daily. Active hydroCHLOROthia zide (HYDRODiuril) 25 mg tablet Take 1 tablet (25 mg) by mouth once daily. 2 Active LUTEIN-ZEAXANTH IN ORAL Take 1 capsule by mouth once daily. Active Klor-Con M20 20 mEq ER tabletIndicatio ns:Hypokalemia TAKE 1 TABLET BY MOUTH EVERY DAY 90 tablet 3 4 Active Additional Information Patient taking differently:20 mEq oral2 times daily, Reported on 06/17/2025 etodolac (Lodine) 500 mg tablet Take 1 tablet (500 mg) by mouth every 12 hours. Active amLODIPine (Norvasc) 5 mg tablet Take 1 tablet (5 mg) by mouth once daily. Active nitroglycerin (Nitrostat) 0.4 mg SL tabletIndicatio ns:Arterioscler osis of coronary artery Place 1 tablet (0.4 mg) under the tongue every 5 minutes if needed for chest pain. 25 tablet 11 4 Active mirabegron (Myrbetriq) 50 mg tablet extended release 24 hr 24 hr tablet Take 1 tablet (50 mg) by mouth once daily. 4 Active omeprazole (PriLOSEC) [address] capsule Take 1 capsule (40 mg) by mouth once daily in the morning. Take before meals. 5 Active melatonin 5 mg capsule Take 1 capsule (5 mg) by mouth once daily. Active ascorbic acid (Vitamin C) 1,000 mg tablet Take 1 tablet (1,000 mg) by mouth once daily. 025 Discontin ued(Thera py completed ) losartan (Cozaar) 25 mg tablet Take 1 tablet (25 mg) by mouth once daily. 025 Discontin ued(Thera py completed ) Active Problems Problem Noted Date Diagnosed Date Pre-operative cardiovascular examination 025 BMI 28.0-28.9,adult 05/22/2024 Former smoker 05/22/2024 Obesity (BMI 30.0-34.9) 11/14/2023 Abnormal nuclear stress test 10/12/2023 Arteriosclerosis of coronary artery 10/12/2023 Balance problem 10/12/2023 BPH (benign prostatic hyperplasia) 10/12/2023 Dyslipidemia 10/12/2023 Essential hypertension 10/12/2023 Failed back syndrome of lumbar spine 10/12/2023 Joint pain 10/12/2023 Physical deconditioning 10/12/2023 Status post coronary angioplasty 10/12/2023 Encounters Date Type Department Care Team Description 06/17/2025 9:30 AM EDT Office Visit [facility] [address] [facility] [address] [place] [address] Marisol Alas MD Arteriosclerosis of coronary artery; Essential hypertension; Dyslipidemia; Status post coronary angioplasty; BMI 28.0-28.9,adult; Former smoker Discharge Disposition: Home 06/17/2025 Travel 06/10/2025 Travel 04/21/2025 Scanned Document [facility] [address] [place] [address] Scanning, Generic Provider 04/20/2025 Scanned Document [facility] [address] [place] [address] Scanning, Generic Provider from Last 3 Months Family History Medical [...] Mass Index 28.12 06/17/2025 9:27 AM EDT Plan of Treatment Upcoming Encounters Date Type Department Care Team (Late st Contact Info) Description 01/28/2026 9:30 AM EDT Office Visit [facility] [address] [facility] [address] [place] [address] Marisol Alas MD [address] [facility] [address] [place] [address] Health Maintenance Due Date Last Done Comments Lipid Panel 1945 Hepatitis C Screening 1964 Zoster Vaccines (1 of 2) 1996 Diabetes Screening 07/27/2021 07/27/2020 RSV High Risk: (Elderly (60+) or Population) (1 - 1-dose 75+ series) 2021 COVID-19 Vaccine (2 - season) 2024 08/27/2022 Medicare Annual Wellness Visit (AWV) 04/29/2025 04/28/2024, 04/30/2023, 04/27/2022 Influenza Vaccine (#1) 2025 , 08/20/2023, 08/14/2022, Additional history exists DTaP/Tdap/Td Vaccines (3 - Td or Tdap) 05/02/2034 05/02/2024, 11/08/2020 Pneumococcal Vaccine Completed 08/24/2017, 11/05/2016, 07/06/2014 HIB Vaccines Aged Out No longer eligi [...] Priority Date/Time Associated Diagnosis Comments ECHOCARDIOGRAM 04/20/2025 from Last 3 Months Results * Echocardiogram (04/20/2025) Narrative 04/20/2025 Ordered by an unspecified provider. us Generic Provider Scanning CV ECHO PROCEDURES Fin al Result from Last 3 Months Insurance [employer] MEDICARE ASSURE Care Teams Pattern Setter Relationship Specialty Start Date End Date Devang Keyes DO [address] [place] [address] PCP - General Internal Medicine 06/17/25 Anita Schmid MD Referring Physician 01/28/25
--- OUTSIDE RECORDS SUMMARY | 2025-06-18 09:10 | XMS_ITS | Encounter Summary ---
Author Organization [facility] Address [address] [facility], [address] [place] [address] Care Team Providers Care Building Carpenter Name Role Phone Devang Keyes DO Primary Care Provider [phone] Reason for Visit * Reason Comments Medication Refill Encounter Details Date Type Department Care Team (Late st Contact Info) Description 01/29/2019 Refill [facility] [address] [place] [address] Cande Weinberg, GUT PULLER - [address] [place] [address] Medication Refill Social History Tobacco Use Types [...] status documented in this encounter Care Teams Building Carpenter Relationship Specialty Start Date End Date Devang Keyes DO PCP - General Internal Medicine 02/15/18 documented as of this encounter
--- OUTSIDE RECORDS SUMMARY | 2025-06-18 09:11 | XMS_ITS | Clinical Summary ---
Author Organization [facility] Address [address] [facility] [address], [address] [place] [address] Care Team Providers Care Fire Pot Operator Name Role Phone Devang Keyes DO Primary Care Provider [phone] Allergies Active Allergy Reactions Criticality Noted Date [...] on file Medical Devices Implanted Type Area Date Night Sitter Device Identifier Shelf Expiration Date Model / Serial / Lot Kit Sealant Surgiflo Hemostatic Matrix Implanted:Qty: 1 on 04/11/2018 by Ang Rocha MD at [facility] Bone/[place] t/Tissue/ Human/Syn th N/A: Back [place]: [employer]-PMM [id number] / / Graft Canc Chip 30cc [id number] - [id number] Implanted:Qty: 1 on 04/11/2018 by Ang Rocha MD at [facility] Bone/[place] t/Tissue/ Human/Syn th N/A: Back MUSCULOSKELETAL TRANSPLANT FND-PMM 12/22/2020 [id number] / [id number] / Screw Polyaxial Reline-O 6.5x50mm Implanted:Qty: 2 on 04/11/2018 by Ang Rocha MD at [facility] Screw/[place] te/Nail/R od N/A: Back [employer]-PMM [id number] / / Screw Polyaxial Reline-O 2s 6.5x55mm Implanted:Qty: 4 on 04/11/2018 by Ang Rocha MD at [facility] Screw/[place] te/Nail/R od N/A: Back [employer]-PMM [id number] / / Edwin-Cellular Bone Matrix 10 - [id number] Implanted:Qty: 1 on 04/11/2018 by Ang Rocha MD at [facility] Spine N/A: Back [employer]-PMM 12/14/2022 [id number] / [id number] / Screw Lk Reline Opn Tul[place] 5.5mm Implanted:Qty: 6 on 04/11/2018 by Ang Rocha MD at [facility] Spine N/A: Back [employer]-PMM [id number] / / Impl Spine Rick Reline-O 5.5x75mm Implanted:Qty: 2 on 04/11/2018 by Ang Rocha MD at [facility] Spine N/A: Back [employer]-PMM [id number] / / Connector Reline-O X C 45-65mm 5.5 Lp Ad Implanted:Qty: 1 on 04/11/2018 by Ang Rocha MD at [facility] Spine N/A: Back [employer]-PMM [id number] / / Coroent Large Mp Implanted:Qty: 1 on 04/11/2018 by Ang Rocha MD at [facility] N/A: Back / [id number] / Insurance AETNA MEDICARE AETNA MEDICARE Advance Directives * Full Code (Latest Code Status on File) Date Activated Date Inactivated Comments 04/11/2018 2:52 PM 04/13/2018 2:05 PM Care Teams Fire Pot Operator Relationship Specialty Start Date End Date Devang Keyes DO PCP - General Internal Medicine 02/15/18
--- OUTSIDE RECORDS SUMMARY | 2025-06-18 09:11 | XMS_ITS | Patient Health Record ---
Author Organization [facility] [place] Address [address] [place] [address] Care Team Providers Care Shutdown Coordinator Name Role Phone Devang Keyes DO Primary Care Provider Chidi Oconnor [phone] Allergies Allergen (clinical drug ingredient) Drug/Non Drug Allergy documented on EMR Reaction Allergy Type Onset Date Status oxycodone oxyCODONE hallucinations Drug Allergy Ac tive Reason For Referral No Information Medications Medication SIG (Take, Route, Frequency, Duration) Notes Start Date End Date Status Klor-Con M20 20 MEQ Oral for 90 Days Active amLODIPine Besylate 5 MG Oral for 90 Days Active Vitamin B Complex Ac tive Trospium Chloride 20 MG 1 tablet Orally Twice a day for 90 days 02/10/2025 Active Aspirin Active Vitamin C Active Atorvastatin Calcium 40 MG Oral for 90 Days Active Amitriptyline HCl 25 MG Oral for 30 Days Not-Taking Calcium Active Losartan Potassium 25 MG Oral for 90 Days Active Lutein-Zeaxanthin Ac tive Myrbetriq 50 MG 1 tablet Orally Once a day for 90 days 09/05/2024 Active Allopurinol 300 MG Oral for 90 Days Active Nitroglycerin 0.4 MG Sublingual for 8 Days prn Active Etodolac 500 MG Oral for 90 Days Active hydroCHLOROthiazide 25 MG Oral for 90 Days Active Tadalafil 20 MG 1 tablet as needed Orally Once a day for 30 days 02/10/2025 Active Social History Tobacco Use: Social History Observation Description Date Details (start date - stop date) Former Smoker NA - NA Tobacco Control (Standard) Question Answer Notes Tobacco use: Former smoker AUDIT-C (Standard) Question Answer Notes Did you have a drink contain ing alcohol in the past year? Yes How often did you have a dri nk containing alcohol in the past year? Never (0 point) How many drinks did you have on a typical day when you were drinking in the past year? 1 or 2 drinks (0 point) How often did you have six o r more drinks on one occasion in the past year? 4 or more times a week (4 points) Points 4 Interpretation Positive Problems Problem Type SNOMED Code ICD Code Onset Dates Problem Status W/U Status Risk Notes Problem 326419786 Overactive bladder (N32.81) Active confirmed Problem Urge incontinence of urine (85478372) Urge incontinence (N39.41) Active confirmed Vital Signs Height 76 in 02/10/2025 Weight 249.8 lbs 02/10/2025 BMI 30.4 kg/m2 02/10/2025 Encounters Encounter Location Date Provider [facility] [address] [place] [address] 09/03/2024 [facility] [address] [place] [address] [facility]/30[facility] [address] [place] [address] 02/10/2025 Chidi Mims Overactive bladder N32.81 and Urge incontinence N39.[address] [address] 08/01/2024 Chidi Mims Urge incontinence N39.41 and Overactive bladder N32.[address] [address] 09/02/2024 Chidinirmal Mims Urge incontinence N39.41 and Overactive bladder N32.[address] [address] 02/10/2025 Chidinirmal Mims Urge incontinence N39.41 and Overactive bladder N32.81 Assessments Encounter Date Diagnosis (ICD Code) Assessment Notes Treatment Notes Treatment Clinical Notes Section Notes 02/10/2025 Overactive bladder (ICD-10 - N32.81) 02/10/2025 Urge incontinence (ICD-10 - N39.41) 02/10/2025 Urge incontinence (ICD-10 - N39.41) 08/01/2024 Urge incontinence (ICD-10 - N39.41) 08/01/2024 Overactive bladder (ICD-10 - N32.81) 09/02/2024 Urge incontinence (ICD-10 - N39.41) 09/02/2024 Overactive bladder (ICD-10 - N32.81) 02/10/2025 Overactive bladder (ICD-10 - N32.81) 08/01/2024 Other Insensate urine loss. Botox helped him some. 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 Will trial on gemtesa. If this does not work will need in offive PNE 09/02/2024 Other Gemtesa is working well. If this is not covered he can trial myrbetriq 50mg which is covered by his plan. 02/10/2025 Other Cont Myrbetriq. Add tropsium BID See back in 8 weeks. Patient has never taken nitroglycerin. Plan Of Treatment No Information Insurance Providers Payer Name Payer Address Payer Phone Subscriber Number Group Number Insured Name Patient Relationship to Insured Coverage Start Date Coverage End Date [employer]ARE [address] [place], [place] [id number] Edvin Tsai Self - patient is the insured Medical (General) History Medical History History ICD Code hyperlipidemia hypertension Urge incontinence N39.41 Overactive bladder N32.81 Surgical History Surgery Date(Month/Year) eye surgery tonsillectomy right knee replacement Back surgery x 3 Prostate surgery cardiac stent spinal stimulator
--- OUTSIDE RECORDS SUMMARY | 2025-06-18 09:11 | XMS_ITS | Clinical Summary ---
Author Organization [facility] Address [address] [place] [address] Care Team Providers Care Relay Man Name Role Phone Devang Keyes DO Primary Care Provider [phone] Allergies Active Allergy Reactions Criticality Noted Date [...] MG tablet every 12 (twelve) hours. Active losartan (Cozaar) 25 MG tablet Take by mouth Active amoxicillin (Amoxil) 500 MG tabletIndicatio ns:History of total right knee replacement 4 tabs PO once 30-60 mins before procedure with food 4 tablet 3 07/08/20 24 Active mirabegron ER (Myrbetriq) 50 MG 24 hr tablet Take 50 mg by mouth Daily 10/30/20 24 Active KLOR-CON 20 MEQ ER tablet 07/28/20 24 Active omeprazole (PriLOSEC) [address] capsule 0 Refill(s) 05/26/20 25 Active melatonin (Melatonin Maximum Strength) 5 MG tablet Take 5 mg by mouth at bedtime 04/28/20 25 Active etodolac (Lodine) 500 MG tablet Every 12 hours 01/10/20 24 025 Discontin ued(Thera py completed ) traMADol (Ultram) 50 MG tablet TAKE 1 TABLET BY MOUTH EVERY 8 HOURS NEEDED FOR POSTPROCEDURE PAIN FOR 5 DAYS 08/19/20 025 Discontin ued(Thera py completed ) Hospital, Clinic, or Other Facility Administered Medication Ordered Dose Route Frequency Start Date End Date Status bupivacaine PF (Marcaine) 0.5 % injection 2 mLIndications:Arthri tis of left knee 2 mL IJ Once PRN Procedure 06/02/2025 06/02/2025 Ended methylPREDNISolone acetate (DEPO-Medrol) injection 40 mgIndications:Arthri tis of left knee 40 mg IX Once PRN Procedure 06/02/2025 06/02/2025 Ended methylPREDNISolone acetate (DEPO-Medrol) injection 40 mgIndications:Imping ement of left shoulder 40 mg IX Once PRN Procedure 06/02/2025 06/02/2025 Ended Active Problems Problem Noted Date Diagnosed Date [...] arthritis 03/12/2023 Internal derangement of right shoulder Sprain of right rotator cuff capsule 03/12/2023 Status post total right knee replacement 023 Encounters Date Type Department Care Team Description 06/02/2025 10:10 AM EDT Ancillary Procedure [facility] [address] [place] [phone] 06/02/2025 10:05 AM EDT Ancillary Procedure [address] [address] 06/02/2025 9:45 AM EDT Office Visit [address] [phone] Telly Montes PA Acute pain of left knee (Primary Dx); Acute pain of left shoulder; Arthritis of left knee; Impingement of left shoulder 06/02/[address] [phone] Telly Montes PA 06/02/2025 Travel 05/01/[address] [address] Jr. Perry Garay, DO Needs Premed for dental appt 04/01/2025 Orders Only [facility] [place] [address] [place] [address] Adolph Schultz DO Age-related nuclear cataract of both eyes; Bilateral posterior capsular opacification 03/27/2025 8:15 AM EDT Office Visit [facility] [address] [place] [address] Adolph Schultz DO Bilateral posterior capsular opacification (Primary Dx); Dry eyes; Optic atrophy; Blepharitis of upper and lower eyelids of both eyes, unspecified type 03/27/2025 Bamboo flowsheet [facility] [address] [place] [address] Adolph Schultz DO 03/27/2025 Travel [...] 09/04/2025 9:15 AM EDT Office Visit [facility] [address] [place] [phone] Adolph Schultz, DO [address] [place] [address] 11/11/2025 10:15 AM EST Office Visit [facility] [address] [place] [phone] Jr. Perry Garay, DO [address] [facility] [address] [place], [place] [id number] Health Maintenance Due Date Last Done Comments Influenza Vaccine (#1) 2025 4, 08/20/2023, 08/14/2022, Additional history exists Pneumococcal Vaccine: 65+ Years Completed 7, 07/06/2014 Procedures Procedure Name Priority Date/Time Associated Diagnosis Comments HI ARTHROCENTESIS ASPIR&/INJ MAJOR JT/BURSA W/O US Routine 06/02/2025 10:48 AM EDT Impingement of left shoulder HI ARTHROCENTESIS ASPIR&/INJ MAJOR JT/BURSA W/O US Routine 06/02/2025 10:47 AM EDT Arthritis of left knee XR SHOULDER 2+ VIEWS LEFT Routine 06/02/2025 10:07 AM EDT Acute pain of left shoulder XR KNEE 1-2 VIEWS LEFT Routine 10:03 AM EDT Acute pain of left knee from Last 3 Months Results * HI ARTHROCENTESIS ASPIR&/INJ MAJOR JT/BURSA W/O US (06/02/2025 10:48 AM EDT) Narrative Telly Montes PA - 06/02/2025 10:48 AM EDT AYAN Jacobs 06/02/2025 12:36 PM L Inj/Asp: L subacromial bursa on 06/02/2025 10:48 AM Indications: pain Details: 21 G needle, posterior approach Medications: 40 mg methylPREDNISolone acetate 40 MG/ML Outcome: tolerated well, no immediate complications Utilizing aseptic technique with universal precautions . Pt given injection Left Shoulder SA space ( code 98062 LT) Procedure, treatment alternatives, risks and benefits explained, specific risks discussed. Consent was given by the patient. Patient was prepped and draped in the usual sterile fashion. Telly BOTELLO IN CLINIC/BEDSIDE ORDERABLES Final Result * HI ARTHROCENTESIS ASPIR&/INJ MAJOR JT/BURSA W/O US (06/02/2025 10:47 AM EDT) Narrative Telly Montes PA - 06/02/2025 10:47 AM EDT AYAN Jacobs 06/02/2025 12:36 PM L Inj/Asp: L knee on 06/02/2025 10:47 AM Indications: pain Details: 22 G needle, anterolateral approach Medications: 40 mg methylPREDNISolone acetate 40 MG/ML; 2 mL bupivacaine PF 0.5 % Outcome: tolerated well, no immediate complications UTILIZING ASEPTIC TECHNIQUE PT GIVEN INJECTION IN LEFT KNEE, NEUROVASC INTACT S/P INJ, TOLERATED WELL Procedure, treatment alternatives, risks and benefits explained, specific risks discussed. Consent was given by the patient. Telly BOTELLO IN CLINIC/BEDSIDE ORDERABLES Final Result * XR shoulder 2+ views left (06/02/2025 10:07 AM EDT) Anatomical Region Laterality Modality Upper Extremities, Shoulder Left Radi ographic Imaging Narrative 06/02/2025 12:36 PM EDT Imaging Result: Left Shoulder AP and Scap Y No acute fracture or dislocation Bone Structures clavicle and scapula and humeral head appear normal alignment Glenohumeral joint space is mildly narrowed. With degenerative changes inferior aspect of joint. Moderate AC joint spurring and joint space narrowing indicating degenerative changes. Soft tissues and limited visualized lung montejo unremarkable Impression: No acute bony process left shoulder with AC joint arthritis Telly BOTELLO IMG XR PROCEDURES Final Resul t * XR knee 1 or 2 views left (06/02/2025 10:03 AM EDT) Anatomical Region Laterality Modality Lower Extremities, Knee [facility] N[facility]ative 06/02/2025 12:33 PM EDT Imaging Result: AP and Lateral weight bearing: Bones: The bony structures of the knee, including the distal femur, proximal tibia, and patella, appear normal. Stable mild varus alignment There are no fractures, dislocations, or bony lesions noted. , stable appearing AP view of right knee prosthesis. Joint Spaces: The medial joint space is narrowed with associated spuring of weight bearing condyles and flattening of articular surface. Most of degenerative changes are patella femoral. Soft Tissues: The surrounding soft tissues appear normal. There is no evidence of soft tissue swelling or calcification. Impression: Mild to moderate tricompartmental degenerative changes left knee us Telly BOTELLO IMG XR PROCEDURES Final Resul t from Last 3 Months Insurance [employer] MEDICARE ADVANTAGE Care Teams Relay Man Relationship Specialty Start Date End Date Devang Keyes DO [address] [place] [phone] PCP - General Internal Medicine 06/01/25
--- OUTSIDE RECORDS SUMMARY | 2025-06-18 09:12 | XMS_ITS | Patient Health Record ---
Author Organization [facility] Address [address] [place] [address] Care Team Providers Care Maple Sugar Maker Name Role Phone DOROTHY HALL DO Primary Care Provider Unavaila ble Anita Schmid Unavailable [phone] Christian Rae Unavailable [phone] [email or web address] calderón Unavailable Results Component Value Reference Range Notes Diff Auto Reviewed date:03/12/2025 11:51:50 AM Interpretation: Performing Lab: Notes/Report: [facility] [address] [place] [address] Neutro Auto 75.0 47.2-70.8 % Lymph Auto 14.0 27.2-40.8 % [place] Auto 10.0 4.7-13.9 % Eos Auto 0.6 0.0-6.1 % Basophil Auto 0.4 0.0-1.2 % Neutro Absolute 7.4 1.8-7.7 x10*3/mcL Lymph Absolute 1.4 1.0-4.8 x10*3/mcL [place] Absolute 1.0 0.3-1.1 x10*3/mcL Eos Absolute 0.1 0.0-0.4 x10*3/mcL Baso Absolute 0.0 0.0-0.2 x10*3/mcL CBC w/ Diff Reviewed date:03/12/2025 11:51:50 AM Interpretation: Performing Lab: Notes/Report: [facility] [address] [place] [address] WBC 9.9 4.5-11.0 x10*3/mcL RBC 3.37 4.30-5.80 x10*6/mcL Hgb 11.2 13.5-17.5 g/dL Hct 32.0 41.0-53.0 % MCV 94.9 80.0-100.0 fL MCH 33.1 27.0-35.0 pg MCHC 34.9 31.0-37.0 % Platelet 167 150-450 x10*3/mcL RDW 13.7 11.6-14.8 % Mean Platelet Volume 8.5 6.7-10.6 fL .eGFR Reviewed date:03/12/2025 11:51:46 AM Interpretation: Performing Lab: Notes/Report: [address] [address] Estimated GFR >60 >=60 mL/min/1.73m? [facility] Laboratories have implemented the eGFR [...] of SCr/? or 1 Age = years .eGFR Reviewed date:03/12/2025 11:51:50 AM Interpretation: Performing Lab: Notes/Report: [address] [address] Estimated GFR >60 >=60 mL/min/1.73m? [facility] Laboratories have implemented the eGFR [...] of SCr/? or 1 Age = years Basic Metabolic Profile Reviewed date:03/12/2025 11:51:50 AM Interpretation: Performing Lab: Notes/Report: [facility] [address] [place] [address] Sodium Lvl 135 133-142 mmol/L Potassium Lvl 3.6 3.4-4.8 mmol/L Chloride 104 98-110 mmol/L CO2 26 22-32 mmol/L Anion Gap 5 4-12 Glucose Lvl 112 70-99 mg/dL BUN 11 8-26 mg/dL Creatinine Lvl 0.81 0.61-1.24 mg/dL BUN Crea Ratio 13.6 10.0-20.0 Calcium Lvl 8.4 8.5-10.3 mg/dL XR OR Spine Lumbar Crossfire Reviewed date:02/25/2025 12:10:40 PM Interpretation: Performing Lab: Notes/Report: Patient Name: Edvin Tsai This report was not created by a radiologist, physician, or advanced practice provider. Surgery Scheduling (Not yet reviewed by provider) Interpretation: Performing Lab: Notes/Report: Primary Insurance Company: MEDICARE [employer] Surgeon/Assist: [facility] Surgery Location: [facility] Surgery Date & Time: 02/24/25 @ 12:30PM Hosp arrival time day of: 10:30AM Surgery End Time: 3:30PM Procedure: SPINAL CORD STIM REMOVAL, L2-S1 DECOMPRESSION AND FUSION Special Equipment: SSEP, PRONE, YUDY TABLE, SURGALIGN Diagnosis: M48.062 STENOSIS Admission Type: INPATIENT Anesthesia Type/CPNB: GENERAL Post-op Appointment Date: 04/10/25 @ 10:50AM Latex Allergy NO Lab Location: [facility] Lab Date/Time: [facility] Injection Wax Molder: ZEHRA Garcia Physician: RAFAEL 02/17/25 @ 11AM Clearance Appt Date/T [place] 01/28/25 @ 10:30AM History & Physical Appointment Date/: 02/13/25 @ 11:20AM Basic Metabolic Profile Reviewed date:03/12/2025 11:51:46 AM Interpretation: Performing Lab: Notes/Report: [address] [address] Sodium Lvl 135 133-142 mmol/L Potassium Lvl 3.5 3.4-4.8 mmol/L Chloride 103 98-110 mmol/L CO2 27 22-32 mmol/L Anion Gap 5 4-12 Glucose Lvl 116 70-99 mg/dL BUN 11 8-26 mg/dL Creatinine Lvl 0.56 0.61-1.24 mg/dL BUN Crea Ratio 19.6 10.0-20.0 Calcium Lvl 8.5 8.5-10.3 mg/dL CBC w/ Diff Reviewed date:03/12/2025 11:51:46 AM Interpretation: Performing Lab: Notes/Report: [address] [address] WBC 8.6 4.5-11.0 x10*3/mcL RBC 3.36 4.30-5.80 x10*6/mcL Hgb 10.8 13.5-17.5 g/dL Hct 31.9 41.0-53.0 % MCV 95.0 80.0-100.0 fL MCH 32.3 27.0-35.0 pg MCHC 34.0 31.0-37.0 % Platelet 159 150-450 x10*3/mcL RDW 13.6 11.6-14.8 % Mean Platelet Volume 8.4 6.7-10.6 fL Diff Auto Reviewed date:03/12/2025 11:51:46 AM Interpretation: Performing Lab: Notes/Report: [address] [address] Neutro Auto 73.1 47.2-70.8 % Lymph Auto 13.1 27.2-40.8 % [place] Auto 11.3 4.7-13.9 % Eos Auto 1.9 0.0-6.1 % Basophil Auto 0.6 0.0-1.2 % Neutro Absolute 6.2 1.8-7.7 x10*3/mcL Lymph Absolute 1.1 1.0-4.8 x10*3/mcL [place] Absolute 1.0 0.3-1.1 x10*3/mcL Eos Absolute 0.2 0.0-0.4 x10*3/mcL Baso Absolute 0.1 0.0-0.2 x10*3/mcL Diff Auto Reviewed date:03/12/2025 11:51:42 AM Interpretation: Performing Lab: Notes/Report: [address] [address] Neutro Auto 72.4 47.2-70.8 % Lymph Auto 12.9 27.2-40.8 % [place] Auto 11.2 4.7-13.9 % Eos Auto 3.1 0.0-6.1 % Basophil Auto 0.4 0.0-1.2 % Neutro Absolute 5.9 1.8-7.7 x10*3/mcL Lymph Absolute 1.1 1.0-4.8 x10*3/mcL [place] Absolute 0.9 0.3-1.1 x10*3/mcL Eos Absolute 0.3 0.0-0.4 x10*3/mcL Baso Absolute 0.0 0.0-0.2 x10*3/mcL Basic Metabolic Profile Reviewed date:03/12/2025 11:51:42 AM Interpretation: Performing Lab: Notes/Report: [address] [address] Sodium Lvl 135 133-142 mmol/L Potassium Lvl 3.3 3.4-4.8 mmol/L Chloride 101 98-110 mmol/L CO2 28 22-32 mmol/L Anion Gap 6 4-12 Glucose Lvl 115 70-99 mg/dL BUN 12 8-26 mg/dL Creatinine Lvl 0.63 0.61-1.24 mg/dL BUN Crea Ratio 19.0 10.0-20.0 Calcium Lvl 8.7 8.5-10.3 mg/dL CBC w/ Diff Reviewed date:03/12/2025 11:51:42 AM Interpretation: Performing Lab: Notes/Report: [address] [address] WBC 8.2 4.5-11.0 x10*3/mcL RBC 3.46 4.30-5.80 x10*6/mcL Hgb 11.4 13.5-17.5 g/dL Hct 32.5 41.0-53.0 % MCV 93.8 80.0-100.0 fL MCH 32.9 27.0-35.0 pg MCHC 35.1 31.0-37.0 % Platelet 181 150-450 x10*3/mcL RDW 13.4 11.6-14.8 % Mean Platelet Volume 8.6 6.7-10.6 fL CBC w/ Diff Reviewed date:03/12/2025 11:51:42 AM Interpretation: Performing Lab: Notes/Report: [address] [address] WBC 9.3 4.5-11.0 x10*3/mcL RBC 3.70 4.30-5.80 x10*6/mcL Hgb 11.8 13.5-17.5 g/dL Hct 34.8 41.0-53.0 % MCV 94.1 80.0-100.0 fL MCH 31.9 27.0-35.0 pg MCHC 33.9 31.0-37.0 % Platelet 210 150-450 x10*3/mcL RDW 13.4 11.6-14.8 % Mean Platelet Volume 8.6 6.7-10.6 fL Basic Metabolic Profile Reviewed date:03/12/2025 11:51:42 AM Interpretation: Performing Lab: Notes/Report: [address] [address] Sodium Lvl 135 133-142 mmol/L Potassium Lvl 3.0 3.4-4.8 mmol/L Chloride 100 98-110 mmol/L CO2 28 22-32 mmol/L Anion Gap 7 4-12 Glucose Lvl 118 70-99 mg/dL BUN 11 8-26 mg/dL Creatinine Lvl 0.60 0.61-1.24 mg/dL BUN Crea Ratio 18.3 10.0-20.0 Calcium Lvl 8.9 8.5-10.3 mg/dL .eGFR Reviewed date:03/12/2025 11:51:42 AM Interpretation: Performing Lab: Notes/Report: [address] [address] Estimated GFR >60 >=60 mL/min/1.73m? [facility] Laboratories have implemented the eGFR [...] of SCr/? or 1 Age = years Diff Auto Reviewed date:03/12/2025 11:51:42 AM Interpretation: Performing Lab: Notes/Report: [address] [address] Neutro Auto 71.2 47.2-70.8 % Lymph Auto 12.6 27.2-40.8 % [place] Auto 12.4 4.7-13.9 % Eos Auto 3.3 0.0-6.1 % Basophil Auto 0.5 0.0-1.2 % Neutro Absolute 6.6 1.8-7.7 x10*3/mcL Lymph Absolute 1.2 1.0-4.8 x10*3/mcL [place] Absolute 1.2 0.3-1.1 x10*3/mcL Eos Absolute 0.3 0.0-0.4 x10*3/mcL Baso Absolute 0.1 0.0-0.2 x10*3/mcL .eGFR Reviewed date:03/12/2025 11:51:42 AM Interpretation: Performing Lab: Notes/Report: [address] [address] Estimated GFR >60 >=60 mL/min/1.73m? [facility] Laboratories have implemented the eGFR [...] of SCr/? or 1 Age = years Potassium Reviewed date:03/01/2025 08:15:32 PM Interpretation: Performing Lab: Notes/Report: [address] [address] Potassium Lvl 3.4 3.4-4.8 mmol/L Diff Man Reviewed date:03/12/2025 11:51:42 AM Interpretation: Performing Lab: Notes/Report: [address] [address] Segs Man 82 49-79 % Band Man 1 0-5 % Lymph Man 8 14-42 % Monocyte Man 5 1-11 % Eos Man 0 0-7 % Basophil Man 0 0-3 % React Lymph Man 4 0-5 % Hypochromasia Slight Platelet estimate Adequate Magnesium Reviewed date:03/12/2025 11:51:42 AM Interpretation: Performing Lab: Notes/Report: [address] [address] Magnesium Lvl 2.0 1.7-2.4 mg/dL Phosphorus Reviewed date:03/12/2025 11:51:42 AM Interpretation: Performing Lab: Notes/Report: [address] [address] Phosphorus 2.6 2.5-4.6 mg/dL CRP Reviewed date:03/12/2025 11:51:38 AM Interpretation: Performing Lab: Notes/Report: [address] [address] CRP 2.83 0.00-0.75 mg/dL CRP measurement is useful for assessment of non-specific INFLAMMATORY RESPONSE to infection or injury AND is a sensitive MARKER of ACUTE INFLAMMATION including CARDIAC RISK ASSESSMENT. CARDIAC patients with elevated CRP are POTENTIALLY at a HIGHER RISK OF FUTURE CARDIAC EVENTS. TSH Reviewed date:03/12/2025 11:51:38 AM Interpretation: Performing Lab: Notes/Report: [address] [address] TSH 1.31 0.45-5.33 mcIU/mL Reference Ranges for individuals from to 18 years of age were obtained from The [employer] Handbook (20 ed) published by [facility]. Reference Ranges for Females: Females, 1st Trimester 0.05 ? 3.7 uIU/mL Females, 2nd Trimester 0.31 ? 4.35 uIU/mL Females, 3rd Trimester 0.41 ? 5.18 uIU/mL Basic Metabolic Profile Reviewed date:03/12/2025 11:51:38 AM Interpretation: Performing Lab: Notes/Report: [address] [address] Sodium Lvl 132 133-142 mmol/L Potassium Lvl 3.0 3.4-4.8 mmol/L Chloride 98 98-110 mmol/L CO2 27 22-32 mmol/L Anion Gap 7 4-12 Glucose Lvl 113 70-99 mg/dL BUN 13 8-26 mg/dL Creatinine Lvl 0.65 0.61-1.24 mg/dL BUN Crea Ratio 20.0 10.0-20.0 Calcium Lvl 8.8 8.5-10.3 mg/dL Ammonia Reviewed date:03/12/2025 11:51:42 AM Interpretation: Performing Lab: Notes/Report: [address] [address] Ammonia 18 9-35 mcmol/L .eGFR Reviewed date:03/12/2025 11:51:38 AM Interpretation: Performing Lab: Notes/Report: [address] [address] Estimated GFR >60 >=60 mL/min/1.73m? [facility] Laboratories have implemented the eGFR [...] of SCr/? or 1 Age = years B12/Folate Lvl Reviewed date:03/12/2025 11:51:38 AM Interpretation: Performing Lab: Notes/Report: [place] [address] Folate Lvl 10.2 >=5.9 ng/mL A WHO Technical Consultation has determined that deficient Folate concentrations are considered to be less than 4 ng/mL. Vitamin B12 Lvl 1036 180-914 pg/mL .UA Microscp A Reviewed date:03/12/2025 11:51:42 AM Interpretation: Performing Lab: Notes/Report: [address] [address] UA WBC Quant 0 0-5 /HPF UA RBC Quant 1 0-5 /HPF UA Mucus Present Absent /LPF UA Hyline Cast Qual 0-2 Negative /LPF HSTI Random Reviewed date:03/12/2025 11:51:38 AM Interpretation: Performing Lab: Notes/Report: [address] [address] hs Troponin I 10 0-20 ng/L CBC w/ Diff Reviewed date:03/12/2025 11:51:42 AM Interpretation: Performing Lab: Notes/Report: [address] [address] WBC 8.5 4.5-11.0 x10*3/mcL RBC 3.54 4.30-5.80 x10*6/mcL Hgb 11.5 13.5-17.5 g/dL Hct 32.7 41.0-53.0 % MCV 92.5 80.0-100.0 fL MCH 32.6 27.0-35.0 pg MCHC 35.2 31.0-37.0 % Platelet 240 150-450 x10*3/mcL RDW 13.4 11.6-14.8 % Mean Platelet Volume 8.4 6.7-10.[address] Brain w/o Contrast Reviewed date:03/12/2025 11:51:38 AM Interpretation: Performing Lab: Notes/Report: Patient Name: Edvin Tsai NONCONTRAST HEAD CT Diff Auto Reviewed date:03/12/2025 11:51:42 AM Interpretation: Performing Lab: Notes/Report: [address] [address] Neutro Auto 70.2 47.2-70.8 % Lymph Auto 13.4 27.2-40.8 % [place] Auto 12.0 4.7-13.9 % Eos Auto 3.5 0.0-6.1 % Basophil Auto 0.9 0.0-1.2 % Neutro Absolute 6.0 1.8-7.7 x10*3/mcL Lymph Absolute 1.1 1.0-4.8 x10*3/mcL [place] Absolute 1.0 0.3-1.1 x10*3/mcL Eos Absolute 0.3 0.0-0.4 x10*3/mcL Baso Absolute 0.1 0.0-0.2 x10*3/mcL UA w Culture if Ind Reviewed date:03/12/2025 11:51:42 AM Interpretation: Performing Lab: Notes/Report: [address] [address] UA Source Clean Catch UA Color Light-Yellow Yellow UA Clarity Clear Clear UA Spec Grav 1.014 1.003-1.035 UA pH 6.5 4.5 - 7.8 UA Protein Negative Negative mg/dL UA Glucose Normal Negative mg/dL UA Bili Negative Negative UA Urobilinogen Normal 0.2 - 1.0 mg/dL UA Nitrite Negative Negative UA Leukocyte Esterase Negative Negative UA Ketones Negative Negative mg/dL UA Blood Negative Negative Hep Func Panel Reviewed date:03/12/2025 11:51:42 AM Interpretation: Performing Lab: Notes/Report: [address] [address] Bili Total 0.8 0.3-1.2 mg/dL Bili Direct 0.2 0.1-0.5 mg/dL Bili Indirect 0.6 0.0-1.0 mg/dL Alk Phos 70 32-91 IU/L AST 18 15-41 IU/L ALT 18 17-63 IU/L Total Protein 5.7 6.5-8.1 g/dL Albumin Lvl 3.1 3.2-4.9 g/dL XR Chest 1 View Reviewed date:03/12/2025 11:51:42 AM Interpretation: Performing Lab: Notes/Report: Patient Name: Edvin Tsai EXAM: XR Chest 1 View Diff Man Reviewed date:03/12/2025 11:51:42 AM Interpretation: Performing Lab: Notes/Report: [place] [id number] Segs Man 63 49-79 % Band Man 0 0-5 % Lymph Man 18 14-42 % Monocyte Man 9 1-11 % Eos Man 9 0-7 % Basophil Man 1 0-3 % RBC Morph Normal Platelet estimate Adequate C Bld Reviewed date:03/09/2025 08:09:59 AM Interpretation: Performing Lab: Notes/Report: [address] [address] Note Patient Name: Edvin Tsai : 1945 [facility] C Bld See Below For Report - Final No growth at 5 days. Basic Metabolic Profile Reviewed date:03/03/2025 09:59:45 AM Interpretation: Performing Lab: Notes/Report: [address] [address] Sodium Lvl 132 133-142 mmol/L Potassium Lvl 3.3 3.4-4.8 mmol/L Chloride 98 98-110 mmol/L CO2 27 22-32 mmol/L Anion Gap 7 4-12 Glucose Lvl 111 70-99 mg/dL BUN 18 8-26 mg/dL Creatinine Lvl 0.74 0.61-1.24 mg/dL BUN Crea Ratio 24.3 10.0-20.0 Calcium Lvl 8.8 8.5-10.3 mg/dL .eGFR Reviewed date:03/03/2025 09:59:45 AM Interpretation: Performing Lab: Notes/Report: [address] [address] Estimated GFR >60 >=60 mL/min/1.73m? [facility] Laboratories have implemented the eGFR [...] of SCr/? or 1 Age = years MRI Brain & MRA Head w/o Con trast Reviewed date:03/12/2025 11:51:38 AM Interpretation: Performing Lab: Notes/Report: Patient Name: Edvin Tsai EXAM: MRI Brain + MRA Head w/o Contrast C Bld Reviewed date:03/09/2025 08:09:59 AM Interpretation: Performing Lab: Notes/Report: [address] [place] [address] Note Patient Name: Edvin Tsai : 1945 [facility] C Bld See Below For Report - Final No growth at 5 days. Diff Auto Reviewed date:03/03/2025 09:59:45 AM Interpretation: Performing Lab: Notes/Report: [address] [address] Neutro Auto 75.1 47.2-70.8 % Lymph Auto 10.1 27.2-40.8 % [place] Auto 11.1 4.7-13.9 % Eos Auto 2.9 0.0-6.1 % Basophil Auto 0.8 0.0-1.2 % Neutro Absolute 7.5 1.8-7.7 x10*3/mcL Lymph Absolute 1.0 1.0-4.8 x10*3/mcL [place] Absolute 1.1 0.3-1.1 x10*3/mcL Eos Absolute 0.3 0.0-0.4 x10*3/mcL Baso Absolute 0.1 0.0-0.2 x10*3/mcL CBC w/ Diff Reviewed date:03/03/2025 09:59:45 AM Interpretation: Performing Lab: Notes/Report: [address] [address] WBC 9.9 4.5-11.0 x10*3/mcL RBC 3.68 4.30-5.80 x10*6/mcL Hgb 11.7 13.5-17.5 g/dL Hct 34.3 41.0-53.0 % MCV 93.1 80.0-100.0 fL MCH 31.8 27.0-35.0 pg MCHC 34.2 31.0-37.0 % Platelet 268 150-450 x10*3/mcL RDW 13.2 11.6-14.8 % Mean Platelet Volume 8.2 6.7-10.6 fL Basic Metabolic Profile Reviewed date:03/04/2025 07:39:20 AM Interpretation: Performing Lab: Notes/Report: [address] [address] Sodium Lvl 132 133-142 mmol/L Potassium Lvl 4.2 3.4-4.8 mmol/L Chloride 100 98-110 mmol/L CO2 25 22-32 mmol/L Anion Gap 7 4-12 Glucose Lvl 124 70-99 mg/dL BUN 23 8-26 mg/dL Creatinine Lvl 0.90 0.61-1.24 mg/dL BUN Crea Ratio 25.6 10.0-20.0 Calcium Lvl 9.0 8.5-10.3 mg/dL .eGFR Reviewed date:03/04/2025 07:39:43 AM Interpretation: Performing Lab: Notes/Report: [address] [address] Estimated GFR >60 >=60 mL/min/1.73m? [facility] Laboratories have implemented the eGFR [...] of SCr/? or 1 Age = years CBC w/ Diff Reviewed date:03/04/2025 07:39:27 AM Interpretation: Performing Lab: Notes/Report: [address] [address] WBC 16.3 4.5-11.0 x10*3/mcL RBC 3.73 4.30-5.80 x10*6/mcL Hgb 11.8 13.5-17.5 g/dL Hct 34.8 41.0-53.0 % MCV 93.2 80.0-100.0 fL MCH 31.6 27.0-35.0 pg MCHC 33.8 31.0-37.0 % Platelet 273 150-450 x10*3/mcL RDW 13.1 11.6-14.8 % Mean Platelet Volume 8.2 6.7-10.6 fL Diff Auto Reviewed date:03/04/2025 07:39:33 AM Interpretation: Performing Lab: Notes/Report: [address] [address] Neutro Auto 85.6 47.2-70.8 % Lymph Auto 4.5 27.2-40.8 % [place] Auto 8.7 4.7-13.9 % Eos Auto 0.8 0.0-6.1 % Basophil Auto 0.4 0.0-1.2 % Neutro Absolute 13.9 1.8-7.7 x10*3/mcL Lymph Absolute 0.7 1.0-4.8 x10*3/mcL [place] Absolute 1.4 0.3-1.1 x10*3/mcL Eos Absolute 0.1 0.0-0.4 x10*3/mcL Baso Absolute 0.1 0.0-0.2 x10*3/mcL Basic Metabolic Profile Reviewed date:03/05/2025 08:29:41 AM Interpretation: Performing Lab: Notes/Report: [address] [address] Sodium Lvl 133 133-142 mmol/L Potassium Lvl 3.6 3.4-4.8 mmol/L Chloride 97 98-110 mmol/L CO2 27 22-32 mmol/L Anion Gap 9 4-12 Glucose Lvl 138 70-99 mg/dL BUN 26 8-26 mg/dL Creatinine Lvl 0.77 0.61-1.24 mg/dL BUN Crea Ratio 33.8 10.0-20.0 Calcium Lvl 9.0 8.5-10.3 mg/dL Diff Auto Reviewed date:03/05/2025 08:29:41 AM Interpretation: Performing Lab: Notes/Report: [address] [place] [address] Neutro Auto 86.1 47.2-70.8 % Lymph Auto 4.5 27.2-40.8 % [place] Auto 8.9 4.7-13.9 % Eos Auto 0.3 0.0-6.1 % Basophil Auto 0.2 0.0-1.2 % Neutro Absolute 14.8 1.8-7.7 x10*3/mcL Lymph Absolute 0.8 1.0-4.8 x10*3/mcL [place] Absolute 1.5 0.3-1.1 x10*3/mcL Eos Absolute 0.1 0.0-0.4 x10*3/mcL Baso Absolute 0.0 0.0-0.2 x10*3/mcL [facility] Reviewed date:03/09/2025 08:09:59 AM Interpretation: Performing Lab: Notes/Report: [address] [address] [facility] Negative Negative No evidence of antibodies to B. burgdorferi detected. False negative results may occur in recently infected patients (<=2 weeks) due to low or undetectable antibody levels to B. burgdorferi. If recent exposure is suspected, a second sample should be collected and tested in 2-4 weeks. Test Performed by: [facility] [address] [place] [address] Chief Sustainability Officer: Aaron De Leon Ph.D.; CLIA# [id number] .eGFR Reviewed date:03/05/2025 08:29:41 AM Interpretation: Performing Lab: Notes/Report: [address] [address] Estimated GFR >60 >=60 mL/min/1.73m? [facility] Laboratories have implemented the eGFR [...] of SCr/? or 1 Age = years CBC w/ Diff Reviewed date:03/05/2025 08:29:41 AM Interpretation: Performing Lab: Notes/Report: [address] [address] WBC 17.2 4.5-11.0 x10*3/mcL RBC 3.59 4.30-5.80 x10*6/mcL Hgb 11.0 13.5-17.5 g/dL Hct 33.4 41.0-53.0 % MCV 93.1 80.0-100.0 fL MCH 30.6 27.0-35.0 pg MCHC 32.8 31.0-37.0 % Platelet 293 150-450 x10*3/mcL RDW 13.6 11.6-14.8 % Mean Platelet Volume 8.2 6.7-10.6 fL Diff Man Reviewed date:03/05/2025 08:29:41 AM Interpretation: Performing Lab: Notes/Report: [address] [address] Segs Man 83 49-79 % Band Man 0 0-5 % Lymph Man 13 14-42 % Monocyte Man 3 1-11 % Eos Man 0 0-7 % Basophil Man 0 0-3 % [place] Man 1 0-1 % RBC Morph Normal Platelet estimate Adequate SPEP Reviewed date:03/09/2025 08:09:59 AM Interpretation: Performing Lab: Notes/Report: [address] [address] Alpha 1 Glob 0.21 0.13-0.33 g/dL Alpha 2 Glob 0.83 0.56-1.13 g/dL Beta Glob 0.74 0.60-1.25 g/dL Gamma Globulin 0.51 0.53-1.48 g/dL Protein Electrophoresis Interpretation Peripheral blood smear findings: Hypogammaglobulinemia. There is no abnormal protein identified in the serum. Authenticated by: Zaina Ramesh M.D. Date/Time: 03/07/2025 11:17:21 EDT Albumin Lvl 3.22 3.00-5.00 g/mL Total Protein 5.5 6.5-8.1 g/dL AG Ratio 1.4 1.1-2.2 .eGFR Reviewed date:03/06/2025 10:31:37 AM Interpretation: Performing Lab: Notes/Report: [address] [address] Estimated GFR >60 >=60 mL/min/1.73m? [facility] Laboratories have implemented the eGFR [...] of SCr/? or 1 Age = years MRI Brain w/o Contrast Reviewed date:03/06/2025 06:14:24 AM Interpretation: Performing Lab: Notes/Report: Patient Name: Edvin Tsai EXAM: MRI Brain w/o Contrast Ammonia Reviewed date:03/06/2025 06:14:24 AM Interpretation: Performing Lab: Notes/Report: [address] [address] Ammonia 24 9-35 mcmol/L XR Chest 1 View Reviewed date:03/06/2025 06:14:24 AM Interpretation: Performing Lab: Notes/Report: Patient Name: Edvin Tsai EXAM: XR Chest 1 View UA w Culture if Ind Reviewed date:03/06/2025 06:14:24 AM Interpretation: Performing Lab: Notes/Report: If patient catheterized >2 days, discontinue current catheter, and insert new [place] [address] UA Source Catheter UA Color Yellow Yellow UA Clarity Turbid Clear UA Spec Grav 1.025 1.003-1.035 UA pH 8.0 4.5 - 7.8 UA Protein 100 Negative mg/dL UA Glucose Normal Negative mg/dL UA Bili Negative Negative UA Urobilinogen Normal 0.2 - 1.0 mg/dL UA Nitrite 2+ Negative UA Leukocyte Esterase 500 Negative UA Ketones Negative Negative mg/dL UA Blood Negative Negative C Bld Reviewed date:03/12/2025 08:45:34 AM Interpretation: Performing Lab: Notes/Report: [address] [id number] Note Patient Name: Edvin Tsai : 1945 [facility] C Bld See Below For Report - Final No growth at 5 days. .eGFR Reviewed date:03/09/2025 08:09:59 AM Interpretation: Performing Lab: Notes/Report: [address] [address] Estimated GFR >60 >=60 mL/min/1.73m? [facility] Laboratories have implemented the eGFR [...] of SCr/? or 1 Age = years CBC w/ Diff Reviewed date:03/09/2025 08:09:59 AM Interpretation: Performing Lab: Notes/Report: [address] [address] WBC 9.0 4.5-11.0 x10*3/mcL RBC 3.67 4.30-5.80 x10*6/mcL Hgb 11.7 13.5-17.5 g/dL Hct 33.4 41.0-53.0 % MCV 90.9 80.0-100.0 fL MCH 32.0 27.0-35.0 pg MCHC 35.2 31.0-37.0 % Platelet 324 150-450 x10*3/mcL RDW 13.8 11.6-14.8 % Mean Platelet Volume 7.8 6.7-10.6 fL Diff Auto Reviewed date:03/09/2025 08:09:59 AM Interpretation: Performing Lab: Notes/Report: [address] [address] Neutro Auto 68.3 47.2-70.8 % Lymph Auto 10.9 27.2-40.8 % [place] Auto 17.2 4.7-13.9 % Eos Auto 3.1 0.0-6.1 % Basophil Auto 0.5 0.0-1.2 % Neutro Absolute 6.2 1.8-7.7 x10*3/mcL Lymph Absolute 1.0 1.0-4.8 x10*3/mcL [place] Absolute 1.6 0.3-1.1 x10*3/mcL Eos Absolute 0.3 0.0-0.4 x10*3/mcL Baso Absolute 0.0 0.0-0.2 x10*3/mcL CMP Reviewed date:03/09/2025 08:09:59 AM Interpretation: Performing Lab: Notes/Report: [address] [address] Sodium Lvl 130 133-142 mmol/L Potassium Lvl 3.0 3.4-4.8 mmol/L Chloride 94 98-110 mmol/L CO2 27 22-32 mmol/L Anion Gap 9 4-12 Glucose Lvl 121 70-99 mg/dL BUN 23 8-26 mg/dL Creatinine Lvl 0.71 0.61-1.24 mg/dL BUN Crea Ratio 32.4 10.0-20.0 ratio Bili Total 0.8 0.3-1.2 mg/dL Alk Phos 97 32-91 IU/L AST 30 15-41 IU/L ALT 34 17-63 IU/L Total Protein 6.2 6.5-8.1 g/dL Albumin Lvl 3.0 3.2-4.9 g/dL AG Ratio 0.9 1.1-2.2 Calcium Lvl 8.7 8.6-10.3 mg/dL Diff Man Reviewed date:03/09/2025 08:09:59 AM Interpretation: Performing Lab: Notes/Report: [facility] [address] [id number] Segs Man 73 49-79 % Band Man 2 0-5 % Lymph Man 13 14-42 % Monocyte Man 4 1-11 % Eos Man 3 0-7 % Basophil Man 0 0-3 % React Lymph Man 4 0-5 % Myelo Man 1 0-0 % RBC Morph Normal Platelet estimate Adequate C Bld Reviewed date:03/12/2025 08:45:34 AM Interpretation: Performing Lab: Notes/Report: [facility] (DEFAULT) [address] [id number] [facility] [address] [place] [address] Note Patient Name: Edvin Tsai : 1945 [facility] C Bld pt care in room. duncan [facility]ins check back later - Final No growth at 5 days. C Bld 03/06/2025 11:59:19 EDTck - Final No growth at 5 days. C Bld See Below For Report - Final No growth at 5 days. .UA Microscp A Reviewed date:03/06/2025 06:14:24 AM Interpretation: Performing Lab: Notes/Report: [address] [address] UA Bacteria Present Absent /HPF UA WBC Quant 51 0-5 /HPF UA RBC Quant 4 0-5 /HPF UA Squepi Cells Quant <1 0-29 /HPF UA Mucus Present Absent /LPF UA CA Phosphate Cryst Present Absent /HPF CMP Reviewed date:03/06/2025 10:31:37 AM Interpretation: Performing Lab: Notes/Report: [address] [address] Sodium Lvl 130 133-142 mmol/L Potassium Lvl 3.2 3.4-4.8 mmol/L Chloride 97 98-110 mmol/L CO2 25 22-32 mmol/L Anion Gap 8 4-12 Glucose Lvl 144 70-99 mg/dL BUN 31 8-26 mg/dL Creatinine Lvl 0.91 0.61-1.24 mg/dL BUN Crea Ratio 34.1 10.0-20.0 ratio Bili Total 0.7 0.3-1.2 mg/dL Alk Phos 89 32-91 IU/L AST 27 15-41 IU/L ALT 28 17-63 IU/L Total Protein 6.3 6.5-8.1 g/dL Albumin Lvl 3.2 3.2-4.9 g/dL AG Ratio 1.0 1.1-2.2 Calcium Lvl 8.9 8.6-10.3 mg/dL C Urine Reviewed date:03/09/2025 08:09:59 AM Interpretation: Performing Lab: Notes/Report: [facility] (DEFAULT) [address] [facility] [place] [address] [facility] [address] [place] [address] Note Patient Name: Edvin Tsai : 1945 [facility] C Urine Order added by Darius barlow. - Final >100,000 cfu/ml Proteus mirabilis isolated ORGANISM Promir --- SUSCEPTIBILITY -- ORGANISM ID: 1 ANTIBIOTIC INTERPRETATION SHALA STATUS C Urine See Below For Report - Final >100,000 cfu/ml Proteus mirabilis isolated ORGANISM Promir --- SUSCEPTIBILITY -- ORGANISM ID: 1 ANTIBIOTIC INTERPRETATION SHALA STATUS C Urine - Final >100,000 cfu/ml Proteus mirabilis isolated ORGANISM Promir --- SUSCEPTIBILITY -- ORGANISM ID: 1 ANTIBIOTIC INTERPRETATION SHALA STATUS C Urine See Below For Report - Final >100,000 cfu/ml Proteus mirabilis isolated ORGANISM Promir --- SUSCEPTIBILITY -- ORGANISM ID: 1 ANTIBIOTIC INTERPRETATION SHALA STATUS C Urine See Below For Report - Final >100,000 cfu/ml Proteus mirabilis isolated ORGANISM Promir --- SUSCEPTIBILITY -- ORGANISM ID: 1 ANTIBIOTIC INTERPRETATION SHALA STATUS C Urine POS Proteus mirabilis - Final >100,000 cfu/ml Proteus mirabilis isolated ORGANISM Promir --- SUSCEPTIBILITY -- ORGANISM ID: 1 ANTIBIOTIC INTERPRETATION SHALA STATUS C Urine Ampicillin/Sulbactam S 8 V - Final >100,000 cfu/ml Proteus mirabilis isolated ORGANISM Promir --- SUSCEPTIBILITY -- ORGANISM ID: 1 ANTIBIOTIC INTERPRETATION SHALA STATUS C Urine Ampicillin R >=32 V - Final >100,000 cfu/ml Proteus mirabilis isolated ORGANISM Promir --- SUSCEPTIBILITY -- ORGANISM ID: 1 ANTIBIOTIC INTERPRETATION SHALA STATUS C Urine Cefazolin R 16 V - Final >100,000 cfu/ml Proteus mirabilis isolated ORGANISM Promir --- SUSCEPTIBILITY -- ORGANISM ID: 1 ANTIBIOTIC INTERPRETATION SHALA STATUS C Urine Cefepime S <=0.12 V - Final >100,000 cfu/ml Proteus mirabilis isolated ORGANISM Promir --- SUSCEPTIBILITY -- ORGANISM ID: 1 ANTIBIOTIC INTERPRETATION SHAAL STATUS C Urine Ceftazidime S <=0.5 V - Final >100,000 cfu/ml Proteus mirabilis isolated ORGANISM Promir --- SUSCEPTIBILITY -- ORGANISM ID: 1 ANTIBIOTIC INTERPRETATION SHALA STATUS C Urine Ceftriaxone S <=0.25 V - Final >100,000 cfu/ml Proteus mirabilis isolated ORGANISM Promir --- SUSCEPTIBILITY -- ORGANISM ID: 1 ANTIBIOTIC INTERPRETATION SHALA STATUS C Urine Ciprofloxacin R >=4 V - Final >100,000 cfu/ml Proteus mirabilis isolated ORGANISM Promir --- SUSCEPTIBILITY -- ORGANISM ID: 1 ANTIBIOTIC INTERPRETATION SHALA STATUS C Urine Ertapenem S <=0.12 V - Final >100,000 cfu/ml Proteus mirabilis isolated ORGANISM Promir --- SUSCEPTIBILITY -- ORGANISM ID: 1 ANTIBIOTIC INTERPRETATION SHALA STATUS C Urine Gentamicin S <=1 V - Final >100,000 cfu/ml Proteus mirabilis isolated ORGANISM Promir --- SUSCEPTIBILITY -- ORGANISM ID: 1 ANTIBIOTIC INTERPRETATION SHALA STATUS C Urine Meropenem S 1 V - Final >100,000 cfu/ml Proteus mirabilis isolated ORGANISM Promir --- SUSCEPTIBILITY -- ORGANISM ID: 1 ANTIBIOTIC INTERPRETATION SHALA STATUS C Urine Nitrofurantoin R 128 V - Final >100,000 cfu/ml Proteus mirabilis isolated ORGANISM Promir --- SUSCEPTIBILITY -- ORGANISM ID: 1 ANTIBIOTIC INTERPRETATION SHALA STATUS C Urine Piperacillin/Tazobac ta m S <=4 V - Final >100,000 cfu/ml Proteus mirabilis isolated ORGANISM Promir --- SUSCEPTIBILITY -- ORGANISM ID: 1 ANTIBIOTIC INTERPRETATION SHALA STATUS C Urine Trimethoprim/Sulfa R CD:[id number] V - Final >100,000 cfu/ml Proteus mirabilis isolated ORGANISM Promir --- SUSCEPTIBILITY -- ORGANISM ID: 1 ANTIBIOTIC INTERPRETATION SHALA STATUS VL Extremity Venous Duplex John Vines Reviewed date:03/06/2025 10:31:37 AM Interpretation: Performing Lab: Notes/Report: Patient Name: Edvin Tsai Preliminary Technologist Report Reason For Referral Reason APPROVED............ ......................NOT SCHEDULED....................................[facility]NA [facility] MRI & CT LUMBAR TO BE DONE AT [facility] Diagnosis 1 Lumbar back pain (M5 4.50) Referral Organization [facility] Referring Provider First Name Anita Referring Provider Last Name [facility] Mar[facility]aga Referring Provider Speciality Orthopedic Surgery Referred Organization [facility] Outpatient Referred Address [address] [place], [place],[address], Procedure 1 [address] lumbar spine; w/o contrast material (69573) Procedure 2 MRI Lumbar Spine w/o Dye (24271) General Notes Zehra Lugo 2024 10:14:01 AM >IMPLANTED SPINAL CORD STIMULATOR---CARD IN CHART, Tomasa Finch 12/12/2024 10:44:20 AM > WAITING ON TODAY'S OFFICE NOTE.Josette Kayla 12/24/2024 10:50:53 AM > AUTHORIZATION # [id number] APPROVED FOR 20758 AND AUTHORIZATION # [id number] APPROVED FOR 18299. BOTH VALID 12/24/24-06/22/25 PER EVICORE. SCANNED INTO CHART AND FAXED TO [facility]. Referral Priority Routine Reason APPROVED....................................02/24/25............................. ........[facility] REMOVAL, L2- S1 DECOMPRESSION AND FUSION 91437, 32302, 76940, 49793 x3, 57902, 29941 x3, 12623, 19183 Diagnos is 1 Neuroforaminal stenosis of lumbar spine (M48.061) Diagnos is 2 Lumbar stenosis with neurogenic claudica tion (M48.062) Diagnos is 3 Foot drop, left foot (M21.372) Diagnos is 4 Foot drop, right foot (M21.371) Referra l [facility] Orthopaedic [facility] Referri ng Provide r First Name Anita Referri ng Provide r Last Name [facility] Maradiaga Referri ng Provide r Special ity Orthopedic Surgery Referre d [place] [facility] Referre d Address [address] [place] [id number] 214,US Procedu re 1 REMOVE SPINE ELTRD PLATE (12252) Procedu re 2 REVISE/REMOVE NEURORECEIVER (94015) Procedu re 3 Arthrodesis, posterior lumbar, 1 lumbar level (67692) Procedu re 4 Arthrodesis single, each addn'l level, p osteriolateral technique (07652) Procedu re 5 Laminectomy, facetectomy and foraminotom y single lumbar (61900) Procedu re 6 Laminectomy, facetectomy and foraminotom y additional vertebral segment (51522) Procedu re 7 Posterior segmental instrumentation, 3 t o 6 segments (22854) Procedu re 8 Autograft for spine surgery only; local obtained from same incision (89389) General Notes Zehra Lugo 01/23/2025 11:48:10 AM >, Zehra Lugo 01/26/2025 11:10:40 AM >CAN YOU CHECK CODING? HE IS NOT ONLY REMOVING THE SCS BUT ALSO DECOMP AND FUSION, Janey Celestin 01/26/2025 11:14:33 AM >Sorry!! I completely skipped that, Tomasa Finch 01/27/2025 10:18:57 AM > DENZELTNA ACTIVE AND EFFECTIVE 11/05/23 PER [employer]. AUTHORIZATION REQUEST SUBMITTED OUTPATIENT DUE TO NONE OF THE CODES PROVIDED BEING ON THE MEDICARE INPATIENT LIST, PENDING AUTHORIZATION # [id number], Tomasa Finch 01/28/2025 09:29:21 AM > PENDING, Tomasa Finch 02/04/2025 08:58:26 AM > CASE STILL PENDING PER [employer]., Tomasa Finch 02/04/2025 09:15:01 AM > PER [facility] CAME BACK WITH A SPLIT DECISION FOR SURGERY. WILL APPROVE THE SCS REMOVAL, L2-S1 DECOMPRESSION AND THE L2-L4 FUSION, HOWEVER THEY ARE RECOMMENDING DENIAL FOR THE L4-S1 FUSION PART OF THE SURGERY IT DOESN'T MEET CRITERIA. P2P CAN BE DONE BY CALLING [phone] X4 BY 02/06/25 @ 1PM EST., Zehra Lugo 02/04/2025 03:45:32 PM >PRINTED FOR REVIEW, Luke Lugon 02/05/2025 09:21:54 AM >P2 PSCHEDULED FOR TODAY FIRST AVAILABLE, Luke Lugon 02/05/2025 09:58:30 AM >p2p done per sfs and stated that it has been approved, Tomasa Finch 02/05/2025 09:59:50 AM > NOTED, THANK YOU. CASE STILL SHOWING PENDING PER [employer], WILL KEEP AN EYE OUT FOR AUTHORIZATION AND GET SCANNED INTO CHART [facility]. THIS WILL NEED CHANGED TO OUTPATIENT THOUGH NONE OF THE CODES ARE ON THE MEDICARE INPATIENT LIST. PLEASE SWITCH AND SEND BACK., Luke Lugon 02/06/2025 11:02:04 AM >CAHNGED TO OUTATIENT, Tomasa Finch 02/06/2025 11:33:00 AM > THANK YOU, CASE NOW SHOWING APPROVED ON [employer]. SCANNED INTO CHART AND FAXED TO [facility]. Referra l Jacquie y Routine Medications Medication SIG (Take, Route, Fr equency, Duration) Notes Start Date End Date Status Vitamin B Active Vitamin C Active Potassium Active etodolac Active Flexeril 10 mg 1 tab(s) orally 3 ti mes a day prn muscle spasms 02/23/2025 Active lutein zeaxanthin Ac tive Baby Aspirin Active Lipitor 40 mg 1 tab(s) Active allopurinol 300 mg 1 tab(s) A ctive Calcium 600+D Active Losartan Potassium A ctive amLODIPine 5 mg 1 tab(s) Acti ve HCTZ Active Social History Tobacco Use: Social History [...] Question Answer Notes Tobacco use: Former smoker Problems Problem Type SNOMED Code ICD Code Onset Dates Problem Status W/U Status Risk Notes Problem 315140943 Arthrodesis stat (Z98.1) Active confirmed Problem 7596074 Foot drop, right foot (M21.371) Active confirmed Problem 016154229373368 Foot drop, left foot (M21.372) Active confirmed Problem 176157799 Spinal stenosis, lumbosacral region (M48.07) Active confirmed Problem Displacement of lumbar intervertebral disc without myelopathy (49945018) Other intervertebral disc displacement, lumbar region (M51.26) Active confirmed Problem 493526023 Other bursal cys t, other site (M71.38) Active confirmed Problem Mechanical complication of nervous system device, implant AND/OR graft (03831728) Other mechanical complication of implanted electronic neurostimulator of spinal cord electrode (lead), initial encounter (T85.192A) Active confirmed Problem Spinal stenosis of lumbar region (84187422) Spinal stenosis, lumbar region without neurogenic claudication (M48.061) Active confirmed Problem 707518746 Encounter for other orthopedic aftercare (Z47.89) Active confirmed Problem Other intervertebral disc degeneration, 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) Active confirmed Problem 75809895 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 (M51.372) Active confirmed Vital Signs Height 6 ft 4 in in 06/12/2025 Weight 260 lbs 06/12/2025 BMI 31.64 06/12/2025 Encounters Encounter Location Date Provider Diagnosis [facility] Office [address] [place] [address] 06/12/2025 Anita Schmid Encounter for other orthopedic aftercare Z47.89 [facility] Office [address] [facility] [place] [address] 12/12/2024 Christian Diglio Lumbar back pain M54.50 ; Foot drop, right foot M21.371 ; Foot drop, left foot M21.372 and Aftercare following surgery of the musculoskeletal system Z47.89 [facility] Office [address] [facility] [place] [address] 01/23/2025 [facility] Foot drop, right foot M21.371 ; Foot drop, left foot M21.372 ; Spinal stenosis, lumbosacral region M48.07 ; 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 M51.372 ; Other bursal cyst, other site M71.38 and Arthrodesis status Z98.1 [facility] Office [address] [place] [address] 02/13/2025 Christian Diglio Lumbar stenosis with neurogenic claudication M48.062 and Degeneration of intervertebral disc of lumbar region with discogenic back pain and lower extremity pain M51.362 [facility]- [address] [place], [place] [id number] 02/24/2025 Selvon Binu Spinal stenosis, lumbar region without neurogenic claudication M48.061 ; Other intervertebral disc displacement, lumbar region M51.26 ; Other intervertebral disc degeneration, lumbar region with discogenic back pain and lower extremity pain M51.362 ; Foot drop, right foot M21.371 ; Foot drop, left foot M21.372 and Other mechanical complication of implanted electronic neurostimulator of spinal cord electrode (lead), initial encounter T85.192A [facility] Office [address] [facility] [place] [address] 04/10/2025 [facility] Encounter for other orthopedic aftercare Z47.89 and Arthrodesis status Z98.1 Assessments Encounter Date Diagnosis (ICD Code) Assessment Notes Treatment Notes Treatment Clinical Notes Section Notes 12/12/2024 Foot drop, right foot (ICD-10 - M21.371) 1. Bilateral foot drops 2. Prior L3-S1 decompression and L4-S1 fusion followed by L4-S1 hardware removal 3. L3-S1 stenosis with radiculopathy 4. C5-7 degenerative disc disease with stenosis 12/12/2024 Lumbar back pain (ICD-10 - M54.50) 1. Bilateral foot drops 2. Prior L3-S1 decompression and L4-S1 fusion followed by L4-S1 hardware removal 3. L3-S1 stenosis with radiculopathy 4. C5-7 degenerative disc disease with stenosis 01/23/2025 Foot drop, right foot (ICD-10 - M21.371) 1. Bilateral foot drops 2. Prior L3-S1 decompression and L4-S1 fusion followed by L4-S1 hardware removal 3. L2-S1 stenosis/NFS/DD D 4. L3-4 synovial cysts 01/23/2025 Foot drop, left foot (ICD-10 - M21.372) 1. Bilateral foot drops 2. Prior L3-S1 decompression and L4-S1 fusion followed by L4-S1 hardware removal 3. L2-S1 stenosis/NFS/DD D 4. L3-4 synovial cysts 02/13/2025 Lumbar stenosis with neurogenic claudication (ICD-10 - M48.062) 02/13/2025 Degeneration of intervertebral disc of lumbar region with discogenic back pain and lower extremity pain (ICD-10 - M51.362) 02/24/2025 Other intervertebral disc displacement, lumbar region (ICD-10 - M51.26) 02/24/2025 Spinal stenosis, lumbar region without neurogenic claudication (ICD-10 - M48.061) 04/10/2025 Arthrodesis status (ICD-10 - Z98.1) 1. 6 weeks s/p L2-5 decompression revision and posterior fusion with spinal cord stimulator removal 2. Prior L3-S1 decompression and L4-S1 fusion followed by hardware removal 04/10/2025 Encounter for other orthopedic aftercare (ICD-10 - Z47.89) 1. 6 weeks s/p L2-5 decompression revision and posterior fusion with spinal cord stimulator removal 2. Prior L3-S1 decompression and L4-S1 fusion followed by hardware removal 06/12/2025 Encounter for other orthopedic aftercare (ICD-10 - Z47.89) 02/24/2025 Other intervertebral disc degeneration, lumbar region with discogenic back pain and lower extremity pain (ICD-10 - M51.362) 01/23/2025 Spinal stenosis, lumbosacral region (ICD-10 - M48.07) 1. Bilateral foot drops 2. Prior L3-S1 decompression and L4-S1 fusion followed by L4-S1 hardware removal 3. L2-S1 stenosis/NFS/DD D 4. L3-4 synovial cysts 12/12/2024 Foot drop, left foot (ICD-10 - M21.372) 1. Bilateral foot drops 2. Prior L3-S1 decompression and L4-S1 fusion followed by L4-S1 hardware removal 3. L3-S1 stenosis with radiculopathy 4. C5-7 degenerative disc disease with stenosis 12/12/2024 Aftercare following surgery of the musculoskeletal system (ICD-10 - Z47.89) 1. Bilateral foot drops 2. Prior L3-S1 decompression and L4-S1 fusion followed by L4-S1 hardware removal 3. L3-S1 stenosis with radiculopathy 4. C5-7 degenerative disc disease with stenosis 01/23/2025 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 (ICD-10 - M51.372) 1. Bilateral foot drops 2. Prior L3-S1 decompression and L4-S1 fusion followed by L4-S1 hardware removal 3. L2-S1 stenosis/NFS/DD D 4. L3-4 synovial cysts 02/24/2025 Foot drop, right foot (ICD-10 - M21.371) 02/24/2025 Foot drop, left foot (ICD-10 - M21.372) 01/23/2025 Other bursal cyst, other site (ICD-10 - M71.38) 1. Bilateral foot drops 2. Prior L3-S1 decompression and L4-S1 fusion followed by L4-S1 hardware removal 3. L2-S1 stenosis/NFS/DD D 4. L3-4 synovial cysts 01/23/2025 Arthrodesis status (ICD-10 - Z98.1) 1. Bilateral foot drops 2. Prior L3-S1 decompression and L4-S1 fusion followed by L4-S1 hardware removal 3. L2-S1 stenosis/NFS/DD D 4. L3-4 synovial cysts 02/24/2025 Other mechanical complication of implanted electronic neurostimulator of spinal cord electrode (lead), initial encounter (ICD-10 - T85.192A) 12/12/2024 Other Plan established by Dr. Mcdonald. Patient seen and evaluated by Dr. Mcdonald today. MR imaging of the cervical spine was reviewed. No significant central canal stenosis concerning for myelopathic symptoms. We will get an updated MRI and CT scan of the lumbar spine. Patient does have a spinal cord stimulator but he is able to have a MRI. We will see him back in our office after the imaging is completed to discuss the results and treatment options. The patient is very much in agreement with the treatment and/or diagnostic plan set forth and all questions were answered to the patient's satisfaction. Thanks once again. If we can be of further service to your patients with disorders of the spine, cervical, thoracic, or lumbar, please do not hesitate to contact Dr. Mdconald. Best regards, 1. Bilateral foot drops 2. Prior L3-S1 decompression and L4-S1 fusion followed by L4-S1 hardware removal 3. L3-S1 stenosis with radiculopathy 4. C5-7 degenerative disc disease with stenosis 01/23/2025 Other Plan established by Dr. Mcdonald. At this time, Dr. Mcdonald discussed MRI results with the patient and is recommending an L2-S1 decompression/fus ion with removal of spinal cord stimulator. It was discussed with patient that fusion is necessary due to the fact that total facetecetomy's would need to be performed In order to free up the foraminal stenosis. This would lead to instability requiring a fusion. Surgical risks and benefits were discussed. Risks include, but are not limited to paralysis, infection, dural tear, nerve root injury, nonunion, persistent symptoms, etc. Patient would like to proceed with surgical intervention. Patient will need medically cleared prior to surgery. We will see him back in the office after medical clearance and prior to surgery. The patient is very much in agreement with the treatment and/or diagnostic plan set forth and all questions were answered to the patient's satisfaction. Thanks once again. If we can be of further service to your patients with disorders of the spine, cervical, thoracic, or lumbar, please do not hesitate to contact Dr. Mcdonald. Best regards, 1. Bilateral foot drops 2. Prior L3-S1 decompression and L4-S1 fusion followed by L4-S1 hardware removal 3. L2-S1 stenosis/NFS/DD D 4. L3-4 synovial cysts 04/10/2025 Other Patient is doing well postoperatively and will continue to work with PT at the SNF and increase his activity as tolerated. He can discontinue the LSO brace. We will see the patient back in 6 weeks for his next postop recheck. The patient is very much in agreement with the treatment and/or diagnostic plan set forth and all questions were answered to the patient's satisfaction. Thanks once again. If we can be of further service to your patients with disorders of the spine, cervical, thoracic, or lumbar, please do not hesitate to contact Dr. Mcdonald. 1. 6 weeks s/p L2-5 decompression revision and posterior fusion with spinal cord stimulator removal 2. Prior L3-S1 decompression and L4-S1 fusion followed by hardware removal Plan Of Treatment Pending Test Test Name Order Date Lumbar spine, 4v flex ext - 97011 2024 Lumbar spine 2v ap and lat - 83404 04/10 Lumbar spine 2v ap and lat - 15090 06/12 CT Scan Lumbar Spine W/O Contrast - 7213 1 12/12/2024 Surgery Scheduling 01/26/2025 DME - Lumbar Support, Surgical OTS 02/13 MRI : Lumbosacral Spine W/O Contrast - 7 8 12/12/2024 Future Test Test Name Order Date Chest 2 views - 82745 01/23/2025 CBC 01/23/2025 PT/PTT 01/23/2025 BMP 01/23/2025 MRSA (Bilateral Nares) PCR 01/23/2025 EKG 01/23/2025 Next Appt Details Provider Name:Rileygray Julissa [place], 09/10/2025 10:30:00 AM, [address] [place] [address], [phone], Insurance Providers Payer Name Payer Address Payer Phone Subscriber Number Group Number Insured Name Patient Relationship to Insured Coverage Start Date Coverage End Date Medicare [employer] [address] [place] [address] [id number] EDVIN TSAI Self - patient is the insured Medical (General) History Medical History History ICD Code High Blood Pressure Surgical History Surgery Date(Month/Year) L2-5 laminectomy, PSF 02/24/2025
--- OUTSIDE RECORDS SUMMARY | 2025-06-18 09:12 | XMS_ITS | Encounter Summary ---
Author Organization [facility] Address [address] [place] [address] Care Team Providers Care Switch Inspector Name Role Phone Devang Keyes DO Primary Care Provider [phone] Devang Keyes DO Primary Care Provider [phone] Encounter Details Date Type Department Care Team (Late st Contact Info) Description 05/27/2024 Clinisync Result Encounter [facility] Unsolicited Fatoumata Montes, AYAN [address] [facility] [place] [address] Social History Tobacco Use Types Packs/Day Years [...] 09/04/2025 9:15 AM EDT Office Visit [facility] [address] [place] [phone] Adolph Schultz DO [address] [place] [address] 11/11/2025 10:15 AM EST [facility] [address] [place] [address] Jr. Perry Garay, DO [address] [facility] [address] [place] [address] documented as of this encounter Procedures Procedure Name Priority Date/Time Associated Diagnosis Comments MR CERVICAL SPINE WO CONTRAST 05/27/2024 4:01 PM EDT documented in this encounter Results * MR cervical spine wo contrast (05/27/2024 4:01 PM EDT) Anatomical Region Laterality Modality Spine, C-spine Magnetic Resonan ce 05/27/2024 4:01 PM EDT Narrative 05/27/2024 4:04 PM EDT [address] [address] Magnetic Resonance Report Signed Patient: EDVIN ROLAND MR#: [id number] : 1945 Acct:[id number] Age/Sex: 78 / M ADM Date: 05/27/24 Loc: MRI Attending Dr: Fatoumata BOTELLO Ordering Physician: Fatoumata Montes Date of Service: 05/27/24 Procedure(s): MR cervical spine wo con Accession Number(s): [id number] cc: Devang Keyes D.O.; Fatoumata Montes [address] [address] Patient Name: EDVIN ROLAND MRN: [id number] date: 1945 Sex: M Assigned Patient Location: MRI Current Patient Location: MRI Accession/Order Number: [id number] Exam Date: 05/27/2024 08:00 Report Date: 05/27/2024 [...] Signed By: 05/27/24 1604 DD/ 1601 TD/TT: It Manager: Procedure Note Radiology, Radiologist, MD - 05/27/2024 [place] [address] Magnetic Resonance Report Signed Patient: EDVIN ROLAND LMR#: [id number] : 6Acct:[id number] Age/Sex: 78 / MADM Date: 05/27/24 Loc: MRI Attending Dr: Fatoumata BOTELLO Ordering Physician: Fatoumata Montes Date of Service: 05/27/24 Procedure(s): MR cervical spine wo con Accession Number(s): [id number] cc: Devang Keyes D.O.; Fatoumata Montes [address] [address] Patient Name: EDVIN ROLAND MRN: [id number] date: 1945 Sex: M Assigned Patient Location: MRI Current Patient Location: MRI Accession/Order Number: [id number] Exam Date: 05/27/2024 08:00 Report Date: 05/27/2024 [...] M.D. Signed By:05/27/24 1604 DD/ 1601 TD/TT: It Manager: us Fatoumata BOTELLO IMG MRI PROCEDURES Final Resu lt documented in this encounter Visit Diagnoses Not on filedocumented in this encounter Care Teams Switch Inspector Relationship Specialty Start Date End Date Devang Keyes DO PCP - General Internal Medicine 02/25/24 05/31/25 Devang Keyes DO [address] [place] [phone] PCP - General Internal Medicine 06/01/25 documented as of this encounter
--- OUTSIDE RECORDS SUMMARY | 2025-06-18 09:12 | XMS_ITS | Encounter Summary ---
Author Organization [facility] Address [address] [place] [address] Care Team Providers Care Juice Standardizer Name Role Phone WaliDevang Iwona REYNA Primary Care Provider [phone] Devang Keyes DO Primary Care Provider [phone] Encounter Details Date Type Department Care Team (Late st Contact Info) Description 04/05/2023 Abstract [facility] [address] [facility] [address] [place] [address] Jr. Perry Garay DO [address] [facility] [address] [place] [address] Social History Tobacco Use Types Packs/Day Years [...] 09/04/2025 9:15 AM EDT Office Visit [facility] [address] [place] [address] [place] [id number] Adolph Schultz DO [address] [place] [address] 11/11/2025 10:15 AM EST Office Visit [facility] [address] [facility] [place] [address] [place] [address] Jr. Perry Garay, DO [address] [facility] [address] [place] [address] documented as of this encounter Visit Diagnoses Not on filedocumented in this encounter Care Teams Juice Standardizer Relationship Specialty Start Date End Date Devang Keyes DO PCP - General Internal Medicine 02/25/24 05/31/25 Devang Keyes DO [address] [facility] [place] [address] PCP - General Internal Medicine 06/01/25 documented as of this encounter
--- OUTSIDE RECORDS SUMMARY | 2025-06-18 09:18 | XMS_ITS | CCD ---
Author Organization [facility] Care Team Providers Care Labor Relations Analyst Name Role Phone AJ, ANG H. Unavailable Unavailable RAFAEL DOROTHY E Unavailable Unavailable AJ, ANG H. Unavailable Unavailable AJ, ANG H. Unavailable Unavailable DOROTHY HALL Unavailable Unavailable DOROTHY HALL Unavailable Unavailable AJ, ANG H. Unavailable Unavailable AJ, ANG H. Unavailable Unavailable AJ, ANG H. Unavailable Unavailable Unavailable Unavailable Dorothy Hall Unavailable DOROTHY HALL Primary Care Physician [phone] Dorothy Hall Unavailable LUDWIN LEMON Unavailable Allison Kenyon Unavailable Marisol Connors Referring Unavailable Rafael, Dr. Dorothy Renteria Primary Care Marisol East Attending Unavailable ConnorsMarisol muñoz Referring Unavailable Rafael, Dr. Dorothy Renteria Primary Care Marisol East Attending Unavailable Marisol Connors Attending Unavailable Marisol Connors Referring Unavailable Ball, Dr. Dorothy Renteria Primary Care Juan José Hall, Dr. Dorothy Renteria Primary Care Chela Menezes Attending Unavailable CONNORS, DR MARISOL Gao [...] CONNORS, DR MARISOL Gao Consulting Unavailable Ball Dorothy REYNA Primary Care Provider BALLDOROTHY Referring Unavailable Barrios, Stephenie Attending Unavailable Bib Sanchez Attending Unavailable MD Bib Sanchez Admitting Unavailable RAFAEL, DOROTHY Referring Unavailable ALANIS WOOD Attending Unavailable Homero XAVIER Attending Unavailable ALANIS WOOD Attending Unavailable Bert Huang Attending Unavailable RAFAEL, DOROTHY Referring Unavailable Barrios, PA-C Stephenie Admitting Unavailabl e BALL, DOROTHY Referring Unavailable Barrios, Stephenie Attending Unavailable BALL, DOROTHY Referring Unavailable Barrios, Stephenie Admitting Unavailable Barrios, Stephenie Attending Unavailable RAMONIAT Barrios Stephenie Admitting Unavailabl e BALL, DOROTHY Referring Unavailable Barrios, Stephenie Attending Unavailable Sophie PAKelli Casiano Admitting Unavailabl e RAFAEL, DOROTHY Referring Unavailable Sophie, Stephenie Attending Unavailable Bib [...] Unavailable RAMONITA Barrios Admitting Unavailabl e RAFAEL, DOROTHY Referring Unavailable Stephenie Barrios Attending Unavailable Dorothy Hall MD Primary Care Provider Bert Huang Admitting Unavailable Bert Huang Attending Unavailable Bert Huang Admitting Unavailable Bert Huang Attending Unavailable DOROTHY HALL Referring Unavailable Barrios, Stephenie Admitting Unavailable Barrios, Stephenie Attending Unavailable RAFAEL, DOROTHY Referring Unavailable Bert Huang Attending Unavailable Bert Huang Referring Unavailable Bert Huang Attending Unavailable Bert Huang Referring Unavailable RAFAEL, DOROTHY Referring Unavailable Sophie PA-C Stephenie Admitting Unavailabl e Sophie PAKelli Stephenie Attending Unavailabl e BALL, DOROTHY Referring Unavailable Bert Huang Admitting Unavailable Bert Huang Attending Unavailable Ball DO, Dorothy E Primary Care Provider Ball DO, Dorothy E Primary Care Provider [facility] Madeline WALTERS, Anita Unavailable [phone] MARISOL CONNORS Attending Unavailable CONNORSMARISOL Referring Unavailable BALL, DOROTHY E Primary Care Unavailable CONNORSMARISOL Attending Unavailable BALL, DOROTHY E Primary Care Unavailable St Madeline WALTERS, Anita F Attending Unavailabl e Ball DO, Dorothy Renteria Primary Care Unavail able Ame WALTERS, Jadon Admitting Unavailable Ball DO, Dorothy Gambleseaside heights Primary Care Unavail able Bob PETERS-OPERATING ROOM RN, Lisa Marie Attending Unavaila ble Bob PETERS-OPERATING ROOM RN, Lisa Marie Consulting Unavaila ble Butch SHIPMAN, Christian Levine Consulting Juan José Pena, Denny Marie Consulting Unavailab arianna Mcclain MD, Deonte Brandon Consulting Juan José Bhatt, Jorgito Palma Consulting Unavailable Remberto WALTERS, Hung Consulting Unavailable BALL, DOROTHY E Referring Unavailable BALL, DOROTHY E Primary Care Unavailable BALL, DOROTHY E Referring Unavailable BALL, DOROTHY E Primary Care Unavailable BALL, DOROTHY E Primary Care Unavailable SHAHAB, EHAD Consulting Unavailable BALL, DOROTHY E Referring Unavailable BALL, DOROTHY E Primary Care Unavailable BALL, DOROTHY E Referring Unavailable BALL, DOROTHY E Primary Care Unavailable BALL, DOROTHY E Referring Unavailable BALL, DOROTHY E Primary Care Unavailable BALL, DOROTHY E Primary Care Unavailable SHAHAB, EHAD Consulting Unavailable BALL, DOROTHY E Referring Unavailable BALL, DOROTHY E Primary Care Unavailable BALL, DOROTHY E Referring Unavailable BALL, DOROTHY E Primary Care Unavailable BALL, DOROTHY E Referring Unavailable BALL, DOROTHY E Primary Care Unavailable BALL, DOROTHY E Referring Unavailable BALL, DOROTHY E Primary Care Unavailable BALL, DOROTHY E Referring Unavailable BALL, DOROTHY E Primary Care Unavailable Ball DO, Dorothy E Primary Care Provider EVELIO ALBARRAN Admitting Unavailabl e REF PROV, NOT IN SYSTEM Referring Unavaila ble BALL, DOROTHY E Primary Care Unavailable ([facility] ONLY), NEURO-CONSULTING Consulting Luba ALONSO Verdin Attending Unavailable BALL, DOROTHY E Referring Unavailable BALL, DOROTHY E Primary Care Unavailable Ball DO, Dorothy E Primary Care Provider Ball DO, Dorothy Primary Care Provider [phone] Dorothy Hall DO Attending Provider [phone] Jillian Jones CMA Attending Provider Unavaila ble Haseeb Meehan DO Attending Provider Vinny Porter MD Attending Provider Ramírez Paez DO Attending Provider Chidi Mims Attending Unavailable Dorothy Hall DO Primary Care Provider CARLOS OBRIEN Attending Unavailable MONTES, FATOUMATA Davidson Attending Unavailable BRINK, JENNY Attending Unavailable MONTES, FATOUMATA J Referring Unavailable BRINK, JENNY Attending Unavailable MONTES, FATOUMATA J Referring Unavailable MONTES, FATOUMATA J Referring Unavailable MONTES, FATOUMATA J Referring Unavailable BRINK, JENNY Attending Unavailable MONTES, FATOUMATA J Referring Unavailable ZABRINA, MERLIN Attending Unavailable MONTES, FATOUMATA J Referring Unavailable TATTERSALL, PATTI Attending Unavailable MONTES, FATOUMATA J Referring Unavailable BRINK, JENNY Attending Unavailable MONTES, FATOUMATA J Referring Unavailable BRINK, JENNY Attending Unavailable MONTES, FATOUMATA J Referring Unavailable PHILIPPE, RAMÍREZ Attending Unavailable BRINK, JENNY Attending Unavailable MONTES, FATOUMATA J Referring Unavailable TATTERSALL, PATTI Attending Unavailable MONTES, FATOUMATA J Referring Unavailable BRINK, JENNY Attending Unavailable MONTES, FATOUMATA J Referring Unavailable BRINK, JENNY Attending Unavailable MONTES, FATOUMATA J Referring Unavailable BRINK, JENNY Attending Unavailable MONTES, FATOUMATA J Referring Unavailable KELBLEYMARYSE Attending Unavailable MONTES, FATOUMATA J Referring Unavailable BRINK, JENNY Attending Unavailable MONTES, FATOUMATA J Referring Unavailable BRINK, JENNY Attending Unavailable MONTES, FATOUMATA J Referring Unavailable BRINK, JENNY Attending Unavailable MONTES, FATOUMATA J Referring Unavailable CHAUNCEY ALDRICH Attending Unavailable MONTES, FATOUMATA J Referring Unavailable JR. JEAN, PERRY Keenan Attending Unavaila jena GARAY JR., GEORGE C Referring Unavaila jena Schmid MD, Anita Unavailable Dorothy Hall DO Primary Care Provider Unavailable Unavailable Unavailable Allergies Allergy Classification Reported Allergen(s) Allergy Type Date of Onset Reaction(s) Facility DULoxetine (1 source) DULoxetine; Translations: [duloxetine] Drug Allergy Hallucinations (finding) [facility] Opioid Agonists (1 source) oxyCODONE; Translations: [oxycodone] Drug Allergy Visual hallucinations [facility] oxybutynin (1 source) oxybutynin; Translations: [oxybutynin] Drug Allergy Hallucinations (finding) [facility] (10 sources) Acetaminophen / HYDROcodone; Translations: [HYDROcodone-Alberto taminophen TABS] Drug Allergy 10-12-20 23 Hallucinations [facility] (20 sources) oxybutynin; Translations: [oxybutynin] Drug Allergy Hallucinations (finding) [facility] (20 sources) oxyCODONE; Translations: [oxycodone] Drug Allergy 01-28-20 22 Hallucinations [facility] (1 source) oxyCODONE Drug Allergy 11-05-19 18 [facility] (14 sources) DULoxetine; Translations: [duloxetine] Drug Allergy Hallucinations (finding) [facility] (3 sources) Sulfonamides (Antibiotic); Translations: [sulfa drugs] Propensity to adverse reactions (disorder) [facility] (20 sources) Acetaminophen / HYDROcodone; Translations: [HYDROCODONE-ALBERTO TAMINOPHEN] Drug Allergy 10-12-20 23 Hallucinations [facility] (20 sources) DULoxetine Drug Allergy 07-15-20 24 Hallucinations [facility] (1 source) HYDROcodone; Translations: [HYDROcodone] Drug Allergy [facility] Repository Medications Current Medications Medication Drug Class(es) Dates Sig (Normalized) Sig (Original) amitriptyline hydrochloride 25 mg oral tablet (3 sources) Tricyclic Antidepressant Start: 05-02-2024 End: 07-01-2024 take 1 tablet by mouth once daily at bedtime amitriptyline 25 mg Tab 25 mg = 1 tab(s), Oral, Once a day (at bedtime), X 30 day(s), # 30 tab(s), Refills(s) 1, Pharmacy: [facility]/pharmacy #[id number], 193, cm, 05/02/24 10:29:00 EDT, Height/Length Dosing, [...] with food 4 tablet 3 07/08/2024 Active atorvastatin 40 mg oral tablet (20 sources) HMG-CoA Reductase Inhibitor Start: 06-16-2019 End: 04-29-2025 take 1 tablet by mouth once daily [...] day(s), # 90 tab(s), Refills(s) 0, Pharmacy: [facility]/pharmacy #[id number], 193, cm, 09/24/24 9:04:00 EST, Height/Length [...] Twice a day for 30 day(s) Active cephalexin 500 mg oral capsule (10 sources) Cephalosporin Antibacterial Start: 08-19-2024 take 1 capsule by mouth every twelve hours cephalexin 500 mg Cap 500 mg = 1 cap(s), Oral, q12hr, # 20 cap(s), Refills(s) 0, Pharmacy: [facility]/pharmacy #[id number], 193, cm, 08/19/24 7:28:00 EDT, Height/Length [...] Weight Dosing Start Date: 02/07/21 Status: Ordered Fish Oils (9 sources) hydroCHLOROthiazide 25 mg oral tablet (20 sources) Thiazide Diuretic Start: 04-23-2025 End: 04-29-2025 take 25 mg by mouth once daily 25 mg, oral, Daily, First dose on Sun04/23/25 at 0900, Look-alike/sound-alike medication - verify indication for use. Start: 01-03-2024 End: 04-28-2024 take 1 tablet by mouth once daily Hydrochlorothiazide 25 mg tablet Discontinued 0 .ROUTE .COMPLEX 90 January 03, 2024 8:12pm April 28, 2024 12:43pm TAKE 1 TABLET BY MOUTH EVERY DAY Start: 07-02-2017 End: 05-29-2025 take 1 tablet by mouth once daily Hydrochlorothiazide 25 mg tablet Active 25 MG PO Daily May 29, 2025 12:00am Complies with drug therapy hydroCHLOROthiaz lexis Active lutein 25 mg / zeaxanthin 5 mg oral capsule (20 sources) Start: 04-28-2024 take 1 capsule by mouth once daily Lutein-Zeaxanthin 25-5 mg capsule Active 1 CAP PO Daily April 28, 2024 12:00am Complies with drug therapy Lutein-Zeaxanthi n 25-5 MG capsule Orally Active LUTEIN-ZEAXANTHI N ORAL Take by mouth. Active LUTEIN-ZEAXANTHI N ORAL Take by mouth. take 1 capsule by mouth once royal ly LUTEIN-ZEAXANTHIN ORAL Take 1 capsule by mouth once daily. Active take 1 capsule by mouth once royal ly LUTEIN-ZEAXANTHIN ORAL Take 1 capsule by mouth once daily. 0 Active Lutein-Zeaxanthi n 25-5 MG as directed Orally Active melatonin 3 mg oral capsule (8 sources) Start: 05-26-2025 take 1 capsule by mouth once daily at bedtime as needed Melatonin 3 mg capsule Active 3 MG PO Daily at bedtime as needed May 26, 2025 12:00am Complies with drug therapy Start: 04-23-2025 End: 04-29-2025 take 1 tablet by mouth at bedtime melatonin (Melatonin Maximum Strength) 5 MG tablet Take 5 mg by mouth at bedtime 04/28/2025 Active take 1 capsule by [facility] once daily melatonin 5 mg capsule Take 1 capsule (5 mg) by mouth once daily. Active meloxicam 7.5 mg oral tablet (3 sources) Nonsteroidal Anti-inflammatory Drug Start: 02-21-2023 take 1 tablet by mouth every twelve hours Meloxicam 7.5 MG 1 tablet Orally bid for 30 days Please discontinue Aleve and Advil while taking the Meloxicam Feb, Active Start: 03-28-2022 take [address] [facility] once daily Meloxicam 15 MG Oral Tablet TAKE 1 TABLET DAILY. Quantity: 30 Refills: 3 Ordered: 28-Mar-2022 Marisol Connors MD Start : 28-Mar-2022 Active stopped plavix 24 hr mirabegron 50 mg extended release oral tablet (17 sources) beta3-Adrenergic Agonist Start: 10-30-2024 take 1 tablet by mouth once daily mirabegron (Myrbetriq) 50 mg tablet extended release 24 hr 24 hr tablet Take 1 tablet (50 mg) by mouth once daily. 10/30/2024 Active Start: 07-05-2021 End: 12-25-2022 take 1 tablet by mouth once daily Myrbetriq 50 mg oral tablet, extended release 50 mg = 1 tab(s), Oral, Daily, X 90 day(s), # 90 tab(s), Refills(s) 3, Pharmacy: [facility] ([facility]), 193, cm, 12/27/21 9:50:00 EST, Height/Length Dosing, 114.5, kg, 12/27/21 9:50:00 EST, Weight Dosing Start Date: 12/30/21 Stop Date: 12/25/22 Status: Ordered mirabegron (MYRB ETRIQ ORAL) Take by mouth. Active mirabegron (MYRB ETRIQ ORAL) Take by mouth. nitroglycerin 0.4 mg sublingual tablet (19 sources) Nitrate Vasodilator Start: 06-12-2024 nitroglyce rin 0.[address] 1 TABLET (0.4 MG) UNDER THE TONGUE EVERY 5 MINUTES NEEDED FOR CHEST PAIN Start Date: 06/12/24 Status: Ordered Start: 09-26-2022 End: 05-22-2024 nitroglycerin (Nitrostat) 0. 4 mg SL tablet Indications: Arteriosclerosis of coronary artery Place 1 tablet (0.4 mg) under the tongue every 5 minutes if needed for chest pain. 25 tablet 11 05/22/2024 Active Start: 09-26-2022 Nitroglycerin 0.4 MG Sublingual Tablet Sublingual TAKE DIRECTED. Quantity: 25 Refills: 11 Ordered: 26-Sep-2022 Marisol Connors MD Start : 26-Sep-2022 Active [place] 9-Sse-Uec-Fish Oil (1 source) Start: 07-02-2017 take 1200 mg by mouth once daily [place] 2-Vxa-Qhs-Fish Oil Active 1200 MG Oral Daily July 02, 2017 10:56am omeprazole 40 mg delayed release oral capsule (7 sources) Proton Pump Inhibitor Start: 05-29-2025 End: 05-29-2025 take 2 capsules by mouth once daily Omeprazole 20 mg capsule,delayed release(DR/EC) Discontinued 40 MG PO Daily May 29, 2025 11:57am May 29, 2025 12:22pm Start: 05-26-2025 take 1 capsule by [facility] once daily before mealtime omeprazole (PriLOSEC) [address] capsule Take 1 capsule (40 mg) by mouth once daily in the morning. Take before meals. 05/26/2025 Active Start: 05-26-2025 End: 05-29-2025 take 1 capsule by mouth once daily Omeprazole 20 mg capsule,delayed release(DR/EC) Discontinued 20 MG PO Daily May 26, 2025 12:00am May 29, 2025 11:58am Osteo Bi-Flex Joint Shield (9 sources) potassium chloride 20 meq extended release oral tablet (20 sources) Start: 05-29-2025 take 1 tablet by addie th twice daily Start: 04-27-2025 End: 04-29-2025 potassium chloride (K-TAB,KL OR-CON) CR tablet 30-50 mEq Start: 04-23-2025 End: 04-29-2025 20 mEq, oral, 2 times daily, First dose on [place] 04/23/25 at 0200, Do not crush or chew. Start: 04-28-2024 End: 05-29-2025 take 1 tablet by mouth once daily Potassium Chloride 20 mEq tablet extended release Discontinued 20 MEQ PO Daily 90 90 October 24, 2024 10:40am May 29, 2025 11:58am Start: 03-06-2022 take 1 tablet by addie once daily Klor-Con M20 20 mEq ER [...] Start: 03-19-2023 take 1 capsule by mo uth twice daily pregabalin 25 mg Cap 25 [...] mouth once daily. 05/22/2024 Discontinued (Therapy completed) QUEtiapine 25 mg oral tablet (4 sources) Atypical Antipsychotic Start: 04-23-2025 End: 04-29-2025 take 1 tablet by mouth once daily as needed QUEtiapine (SEROquel) 25 mg tablet Take 1 tablet (25 mg total) by mouth nightly as needed (). 04/28/2025 Active sildenafil 50 mg oral tablet (19 sources) [...] Ordered traMADol hydrochloride 50 mg oral tablet (8 sources) Opioid Agonist Start: 08-19-2024 End: 06-02-2025 take 1 tablet by mouth every eight hours as needed for pain traMADol (Ultram) 50 MG tablet TAKE 1 TABLET BY MOUTH EVERY 8 HOURS NEEDED FOR POSTPROCEDURE PAIN FOR 5 DAYS 08/19/2024 06/02/2025 Discontinued (Therapy completed) Start: 02-07-2021 take 1 tablet by addie th every six hours as needed for pain traMADOL 50 mg Tab 50 mg = 1 tab(s), Oral, q6hr, PRN Pain, # 20 tab(s), Refills(s) 0, [id number], cm, 02/03/21 8:57:00 EDT, Height/Length Dosing, 116, kg, 02/03/21 8:57:00 EDT, Weight Dosing Start Date: 02/07/21 Status: Ordered Vitamin B Complex (1 source) Vitamin B Comple x - as directed Orally Active Vitamin B12 1000 mcg Tab (20 [...] Sig (Normalized) Sig (Original) acetaminophen 325 mg oral tablet (10 sources) Start: 04-23-2025 End: 04-29-2025 take 1 tablet by mouth every four hours as needed 650 mg, oral, Every 4 hours PRN, Temperature greater than 38.3 C, Starting on [facility] 04/23/25 at 0009, [Warning: Total Acetaminophen not to exceed more than 4 grams (4000 mg) in 24 hours] Start: 04-16-2025 take 2 capsules by m outh every six hours as needed Acetaminophen 500 mg capsule Active 1000 MG PO Every 6 hours as needed April 16, 2025 12:00am Complies with drug therapy Start: 06-24-2024 take 650 mg by mouth three times daily as needed for pain Tylenol 650 mg, Oral, TID, PRN as needed for pain, Refills(s) 0 Start Date: 06/24/24 Status: Ordered Start: 06-24-2024 Tylenol Oral, Refills(s) 0 Start Date: 06/24/24 Status: Ordered acetaminophen 325 mg / oxyCODONE hydrochloride 5 mg oral tablet (8 sources) Opioid Agonist Start: 07-24-2017 End: 03-04-2019 take 1 tablet by mouth every six hours as needed for pain Oxycodone-Acetaminophen 5-325 mg Tablet Discontinued 1 TAB PO [...] BY MOUTH EVERY DAY Start: 05-08-2021 End: 04-29-2025 take 1 tablet by mouth once daily allopurinol (Zyloprim) 300 mg tablet Take 1 tablet (300 mg) by mouth once daily. 05/08/2021 Active Start: 12-02-2020 take 1 tablet by addie th once daily allopurinol 100 mg Tab 100 mg = 1 tab(s), Oral, Daily, Refills(s) 0, Gout pain Start Date: 12/02/20 Status: Ordered aluminum hydroxide 40 mg/ml / magnesium hydroxide 40 mg/ml / simethicone 4 mg/ml oral suspension (1 source) Start: 04-23-2025 End: 04-29-2025 amLODIPine 10 mg oral tablet (20 sources) Dihydropyridine Calcium Channel Pratik Start: 04-23-2025 End: 04-29-2025 take 5 mg by mouth once daily 5 mg, oral, Daily, First dose on [place] 04/23/25 at 0900, Look-alike/sound -alike medication - verify indication for use. Avoid grapefruit juice. Start: 06-23-2024 End: 10-24-2024 take 1 tablet [...] 02, 2017 12:00am February 26, 2024 2:59pm take 2 tablets by mo [facility] in the morning amLODIPine (NORVASC) 2.5 mg tablet Take 2 tablets (5 mg total) by mouth in the morning. Active amLODIPine Besyl ate Active ascorbic acid 1000 mg oral tablet (20 sources) Vitamin C Start: 04-28-2024 End: 06-17-2025 take 1 g by mouth once daily Ascorbic Acid (Vitamin C) 1,000 mg tablet Discontinued 1 GM PO Daily April 28, 2024 12:00am May 29, 2025 12:24pm Start: 04-28-2024 take 1 g by mouth once daily A scorbic Acid (Vitamin C) Active 1 GM PO Daily April 28, 2024 12:00am Ascorbic Acid (V itamin C) 500 MG capsule as directed Orally Active aspirin 81 mg delayed release oral tablet (20 sources) Platelet Aggregation Inhibitor, Nonsteroidal Anti-inflammatory Drug Start: 04-23-2025 End: 04-29-2025 take 81 mg by mouth twice daily 81 mg, oral, 2 times daily, First dose on [facility] 04/23/25 at 0200, Do not crush or chew. Start: 12-02-2019 take 1 tablet by addie th once daily aspirin 81 mg oral tablet 81 mg = 1 tab(s), Oral, Daily, # 30 tab(s), Refills(s) 0 Start Date: 12/02/19 Status: Ordered Start: 06-16-2019 End: 04-29-2025 take 1 tablet by mouth once daily Aspirin 81 mg tablet,delayed release (DR/EC) Active 81 MG PO Daily June 16, 2019 12:00am Complies with drug therapy Start: 07-02-2017 End: 03-04-2019 take 1 tablet by mouth once daily Aspirin (Manuel Low Dose Aspirin) 81 mg Tablet,Delayed Release (Dr/Ec) Discontinued 1 TAB PO Daily July 02, 2017 12:00am March 04, 2019 8:08am aspirin 81 mg ch ewable tablet Chew and swallow 1 tablet (81 mg) once daily. Active Baby Aspirin Act michelle barium sulfate (VARIBAR HONEY) 40 % (w/v) 29% (w/w) suspension 60 mL (1 source) Start: 04-24-2025 End: 04-29-2025 60 mL, oral, Once in imaging, contrast, barium sulfate (VARIBAR HONEY) 40 % (w/v) 29% (w/w) suspension, Starting on Sun04/24/25 at 0954, For 1 dose barium sulfate (VARIBAR NECTAR) 40 % (w/v) suspension 10 mL (1 source) Start: 04-24-2025 End: 04-29-2025 10 mL, oral, Once in imaging, contrast, barium sulfate (VARIBAR NECTAR) 40 % (w/v) suspension, Starting on Sun04/24/25 at 0954, For 1 dose barium sulfate (VARIBAR PUDDING) 40 % (w/v), 30% (w/w) oral paste 60 mL (1 source) Start: 04-24-2025 End: 04-24-2025 60 mL, oral, Once in imaging, contrast, barium sulfate (VARIBAR PUDDING) 40 % (w/v), 30% (w/w) oral paste, Starting on Sun04/24/25 at 0954, For 1 dose barium sulfate (VARIBAR THIN HONEY) 40 %(w/v), 29% (w/w)(1500 CPS) suspension 20 mL (1 source) Start: 04-24-2025 End: 04-29-2025 take 20 mL by mouth once 20 mL, oral, Once in imaging, contrast, Radiology, Starting on Sun04/24/25 at 0954, For 1 dose barium sulfate (VARIBAR THIN) 81 % (w/w) powder 148 g (1 source) Start: 04-24-2025 End: 04-24-2025 148 g, oral, Once in imaging, contrast, barium sulfate (VARIBAR THIN) 40 % (w/v) powder, Starting on Sun04/24/25 at 0954, For 1 dose 5 ml bupivacaine hydrochloride 5 mg/ml injection (4 sources) Amide Local Anesthetic Start: 06-02-2025 End: 06-02-2025 bupivacaine PF (Marcaine) 0.5 % injection 2 mL Start: 06-02-2025 End: 06-02-2025 2 mL, Injection, Once PRN Pr ocedure, Starting on Sun06/02/25 at 1047, For 1 dose calcium carbonate 1250 mg / cholecalciferol 200 unt oral tablet (12 sources) Vitamin D Start: 04-23-2025 End: 04-29-2025 take 1 tablet by mouth twice daily at mealtime 1 tablet, oral, 2 times daily with meals, First dose on Sun04/23/25 at 0800, Look-alike/sound-alike medication - verify indication for use. Vit D3 200 IU = 5 mcg. Start: 07-02-2017 take 1 tablet by addie th once daily Calcium Carbonate-Vitamin D3 Active 1 TAB Oral Daily July 02, 2017 10:49am Start: 07-02-2017 End: 04-16-2025 Calcium Carbonate-Vitamin D3 (Calcium 500 + D) 500 mg(1,250mg) -400 unit Tablet Discontinued 1 TAB PO Daily July 02, 2017 12:00am April 16, 2025 2:04pm take 1 tablet by addie th once daily in the morning, then take 1 tablet by mouth once at mealtime calcium carbonate-vitamin D3 (CALCIUM 500 + D) 500 mg(1,250mg) -200 units per tablet Take 1 tablet by mouth in the morning and 1 tablet in the evening. Take with meals. Active chondroitin sulfates 200 mg / glucosamine hydrochloride 250 mg oral tablet (9 sources) Start: 07-02-2017 End: 12-27-2023 take 2 [...] 3:30pm cyclobenzaprine hydrochloride 10 mg oral tablet (8 sources) Muscle Relaxant Start: 07-24-2017 End: 03-04-2019 take 1 tablet by mouth every eight hours as needed for muscle spasms Cyclobenzaprine 10 mg Tablet Discontinued 10 MG PO Every 8 hours as needed for Muscle Spasm 40 July 24, 2017 12:00am March 04, 2019 8:09am docusate sodium 50 mg / sennosides, [facility] 8.6 mg oral tablet (9 sources) Start: 04-23-2025 End: 04-29-2025 take 1 tablet by mouth every twelve hours as needed for constipation Start: 07-24-2017 End: 03-04-2019 take 2 tablets [...] HOURS FOR 30 DAYS Start: 01-25-2024 End: 04-16-2025 take 1 tablet by mouth twice daily Etodolac 500 mg tablet Discontinued 500 MG PO Twice daily 180 90 April 28, 2024 12:42pm October 24, 2024 10:37am Start: 12-31-2023 End: 06-02-2025 etodolac (Lodine) 500 MG tab let Every 12 hours 01/10/2024 06/02/2025 Discontinued (Therapy completed) famotidine 20 mg oral tablet (10 sources) Histamine-2 Receptor Antagonist Start: 04-23-2025 End: 04-29-2025 take 20 mg by mouth every twelve hours 20 mg, oral, Every 12 hours, First dose on [facility] 04/23/25 at 0015, Pharmacy to adjust dose per renal function Start: 11-01-2019 take 1 tablet by mouth every t welve hours glucagon (rdna) 1 mg injecti on (1 source) Antihypoglycemic Agent Start: 04-23-2025 End: 04-29-2025 50 ml glucose 500 mg/ml pref illed syringe (2 sources) Start: 04-23-2025 End: 04-29-2025 Start: 04-23-2025 End: 04-29-2025 1 ml heparin sodium, porcine 5000 unt/ml injection (1 source) Unfractionated Heparin, Anti-coagulant Start: 04-23-2025 End: 04-29-2025 5,000 Units, subcutaneous, Every 12 hours scheduled, First dose on [facility] 04/23/25 at 0015, Notify prescriber if INR greater than 1.9, hemoglobin less than 10 mg/dL, aPTT greater than 40 seconds, and/or platelet count less than 100,000/mm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 88 fL 80 - 100 fL [facility] Monocytes (Bld) [#/Vol] 0.8 10*3/uL 0.0 - 0.9 10*3/uL [facility] Monocytes/100 WBC (Bld) 13.7 % P [facility] Neutrophils (Bld) [#/Vol] 4 10*3/uL 1.5 - 6.6 10*3/uL [facility] Neutrophils/100 WBC (Bld) 65.2 % [facility] Platelet mean volume (Bld) [Entitic vol] 9.6 fL 7 - 12 fL [facility] Platelets (Bld) [#/Vol] 235 10*3/uL [facility] RBC (Bld) [#/Vol] 4.46 10*6/uL [facility] WBC LM Ql (Sput) 6.1 [facility] BASIC METABOLIC PANELon 06-2 Anion gap [Moles/Vol] 10 mmol/L Normal 5-15 [facility] Comment on above: Performed By: #### B MP #### [facility] ([facility]) [address] [place] [address] VIR Calcium [Mass/Vol] 9.2 mg/dL Normal 8.5-10.5 [facility] Comment on above: Performed By: #### B MP #### [facility] ([facility]) [address] [place] [address] VIR Chloride [Moles/Vol] 105 mmol/L Normal 98-109 [facility] Comment on above: Performed By: #### B MP #### [facility] ([facility]) [address] [place] [address] VIR CO2 [Moles/Vol] 23 mmol/L Normal 22-32 [facility] Comment on above: Performed By: #### B MP #### [facility] ([facility]) [address] [place] [address] VIR Creatinine [Mass/Vol] 0.55 mg/dL Low 0.60-1.30 [facility] Comment on above: Result Comment: METH OD TRACEABLE TO IDMS STANDARD Performed By: #### B MP #### [facility] ([facility]) [address] [place] [address] VIR EGFR (CKD-EPI) NON-RACE DEPENDENT >^90 Normal >=60 [facility] Comment on above: Result Comment: Repo rted eGFR is based on the CKD-EPI 2020 equation that does not use a race coefficient. Performed By: #### B MP #### [facility] ([facility]) [address] [place] [address] VIR Glucose [Mass/Vol] 97 mg/dL Normal 65-99 [facility] Comment on above: Performed By: #### B MP #### [facility] ([facility]) [address] [place] [address] VIR Potassium [Moles/Vol] 3.7 mmol/L Normal 3.5-5.0 [facility] Comment on above: Performed By: #### B MP #### [facility] ([facility]) [address] [place] [address] VIR Sodium [Moles/Vol] 138 mmol/L Normal 134-146 [facility] Comment on above: Performed By: #### B MP #### [facility] ([facility]) [address] [place] [address] VIR Urea nitrogen [Mass/Vol] 21 mg/dL Normal 5-27 [facility] Comment on above: Performed By: #### B MP #### [facility] ([facility]) [address] [place] [address] VIR Basic Metabolic Panelon 06-2 Anion gap [Moles/Vol] 10 mmol/L 5 - 15 mmol/L [facility] Calcium [Mass/Vol] 9.2 mg/dL 8.5 - 10. 5 mg/dL [facility] Chloride [Moles/Vol] 105 mmol/L 98 - 10 9 mmol/L [facility] CO2 [Moles/Vol] 23 mmol/L 22 - 32 mmol/L [facility] Creatinine [Mass/Vol] 0.55 mg/dL Low 0.60 - 1.30 mg/dL [facility] Comment on above: METHOD TRACEABLE TO IDMS STANDARD EGFR Non-Race Dependent - [facility] Comment on above: Reported eGFR is bas ed on the CKD-EPI 2020 equation that does not use a race coefficient. Glucose [Mass/Vol] 97 mg/dL 65 - 99 mg/dL [facility] Interpretation and review of laboratory results Abnormal [facility] Potassium [Moles/Vol] 3.7 mmol/L 3.5 - 5.0 mmol/L [facility] Sodium [Moles/Vol] 138 mmol/L 134 - 146 mmol/L [facility] Urea nitrogen [Mass/Vol] 21 mg/dL 5 - 27 mg/dL [facility] CBC WITH AUTO DIFFERENTIALon 04-28-2025 BASOPHILS ABSOLUTE COUNT (10*3/UL) BY AUTOMATED COUNT 0.3 10*3/uL High 0.0-0.2 [facility] Comment on above: Performed By: #### B MP #### [facility] ([facility]) [address] [place] [address] VIR BASOPHILS RELATIVE PERCENT BY AUTOMATED COUNT 3.4 % Normal [facility] Comment on above: Performed By: #### B MP #### [facility] ([facility]) [address] [place] [address] VIR CELLAVISION DACROCYTES IN BLOOD BY LIGHT MICROSCOPY 1+ Normal [facility] Comment on above: Performed By: #### B MP #### [facility] ([facility]) [address] [place] [address] VIR CELLAVISION DIFFERENTIAL TYPE AUTOMATED DIFFERENTIAL Normal [facility] Comment on above: Performed By: #### B MP #### [facility] ([facility]) [address] [place] [address] VIR CELLAVISION ELLIPTOCYTES IN BLOOD BY LIGHT MICROSCOPY 1+ Normal [facility] Comment on above: Performed By: #### B MP #### [facility] ([facility]) [address] [place] [address] VIR CELLAVISION RBC FRAGMENTS 1+ Normal [facility] Comment on above: Performed By: #### B MP #### [facility] ([facility]) [address] [place] [address] VIR Eosinophils (Bld) [#/Vol] 0.2 10*3/uL Normal 0.0-0.4 [facility] Comment on above: Performed By: #### B MP #### [facility] ([facility]) [address] [place] [address] VIR EOSINOPHILS RELATIVE PERCENT BY AUTOMATED COUNT 1.9 % Normal [facility] Comment on above: Performed By: #### B MP #### [facility] ([facility]) [address] [place] [address] VIR Erythrocyte distribution width (RBC) [Ratio] 14.5 % Normal 11.5-15 [facility] Comment on above: Performed By: #### B MP #### [facility] ([facility]) [address] [place] [address] VIR Hematocrit (Bld) [Volume fraction] 41.6 % Normal 39-50 [facility] Comment on above: Performed By: #### B MP #### [facility] ([facility]) [address] [place] [address] VIR Hemoglobin (Bld) [Mass/Vol] 13.7 g/dL Normal 13-17 [facility] Comment on above: Performed By: #### B MP #### [facility] ([facility]) [address] [place] [address] VIR LYMPHOCYTES ABSOLUTE COUNT (10*3/UL) BY AUTOMATED COUNT 1.8 10*3/uL Normal 1.0-3.5 [facility] Comment on above: Performed By: #### B MP #### [facility] ([facility]) [address] [place] [address] VIR LYMPHOCYTES RELATIVE PERCENT BY AUTOMATED COUNT 20.8 % Normal [facility] Comment on above: Performed By: #### B MP #### [facility] ([facility]) [address] [place] [address] VIR MCH (RBC) [Entitic mass] 29.5 pg Normal 27-34 [facility] Comment on above: Performed By: #### B MP #### [facility] ([facility]) [address] [place] [address] VIR MCHC (RBC) [Mass/Vol] 33.1 g/dL Normal 32-[address] [facility] Comment on above: Performed By: #### B MP #### [facility] ([facility]) [address] [place] [address] VIR MCV (RBC) [Entitic vol] 89 fL Normal 80-100 [facility] Comment on above: Performed By: #### B MP #### [facility] ([facility]) [address] [place] [address] VIR MONOCYTES ABSOLUTE COUNT (10*3/UL) BY AUTOMATED COUNT 1.2 10*3/uL High 0.0-0.9 [facility] Comment on above: Performed By: #### B MP #### [facility] ([facility]) [address] [place] [address] VIR MONOCYTES RELATIVE PERCENT BY AUTOMATED COUNT 12.9 % Normal [facility] Comment on above: Performed By: #### B MP #### [facility] ([facility]) [address] [place] [address] VIR NEUTROPHILS ABSOLUTE COUNT BY AUTOMATED COUNT 5.4 10*3/uL Normal 1.5-6.6 [facility] Comment on above: Performed By: #### B MP #### [facility] ([facility]) [address] [place] [address] VIR NEUTROPHILS RELATIVE PERCENT BY AUTOMATED COUNT 61.0 % Normal [facility] Comment on above: Performed By: #### B MP #### [facility] ([facility]) [address] [place] [address] VIR Platelet mean volume (Bld) [Entitic vol] 9.4 fL Normal 7-12 [facility] Comment on above: Performed By: #### B MP #### [facility] ([facility]) [address] [place] [address] VIR Platelets (Bld) [#/Vol] 209 10*3/uL Normal 150-450 [facility] Comment on above: Performed By: #### B MP #### [facility] ([facility]) [address] [place] [address] VIR RBC COUNT 4.66 X10E12/L Normal 4.1-5.7 [facility] Comment on above: Performed By: #### B MP #### [facility] ([facility]) [address] [place] [address] VIR WBC (Bld) [#/Vol] 8.9 10*3/uL Normal 4-11 [facility] Comment on above: Performed By: #### B MP #### [facility] ([facility]) [address] [place] [address] VIR CBC auto differentialon 04-06 Basophils (Bld) [#/Vol] 0.3 10*3/uL High 0.0 - 0.2 10*3/uL [facility] Basophils/100 WBC (Bld) 3.4 % P [facility] Complement C3 fragment (RBC) [Mass/Vol] 1+ [facility] Dacrocytes LM Ql (Bld) 1+ Pr [facility] Differential cell count method Nom (Bld) AUTOMATED DIFFERENTIAL [facility] Elliptocytes LM Ql (Bld) 1+ [facility] Eosinophils (Bld) [#/Vol] 0.2 10*3/uL 0.0 - 0.4 10*3/uL [facility] Eosinophils/100 WBC (Bld) 1.9 % [facility] Erythrocyte distribution width (RBC) [Ratio] 14.5 % 11.5 - 15 % [facility] Hematocrit (Bld) [Volume fraction] 41.6 % 39 - 50 % [facility] Hemoglobin (Bld) [Mass/Vol] 13.7 g/dL 13 - 17 g/dL [facility] Interpretation and review of laboratory results Abnormal [facility] Lymphocytes (Bld) [#/Vol] 1.8 10*3/uL 1.0 - 3.5 10*3/uL [facility] Lymphocytes/100 WBC (Bld) 20.8 % [facility] MCH (RBC) [Entitic mass] 29.5 pg 27 - 34 pg [facility] MCHC (RBC) [Mass/Vol] 33.1 g/dL 32 - 3 6 g/dL [facility] MCV (RBC) [Entitic vol] 89 fL 80 - 100 fL [facility] Monocytes (Bld) [#/Vol] 1.2 10*3/uL High 0.0 - 0.9 10*3/uL [facility] Monocytes/100 WBC (Bld) 12.9 % [facility] Neutrophils (Bld) [#/Vol] 5.4 10*3/uL 1.5 - 6.6 10*3/uL [facility] Neutrophils/100 WBC (Bld) 61 % [facility] Platelet mean volume (Bld) [Entitic vol] 9.4 fL 7 - 12 fL [facility] Platelets (Bld) [#/Vol] 209 10*3/uL [facility] RBC (Bld) [#/Vol] 4.66 10*6/uL [facility] WBC LM Ql (Sput) 8.9 [facility] BASIC METABOLIC PANELon 06-2 -2024 Anion gap [Moles/Vol] 8 mmol/L Normal 5-15 [facility] Comment on above: Performed By: #### B MP #### [facility] ([facility]) [address] [place] [address] VIR Calcium [Mass/Vol] 9.2 mg/dL Normal 8.5-10.5 [facility] Comment on above: Performed By: #### B MP #### [facility] ([facility]) [address] [place] [address] VIR Chloride [Moles/Vol] 103 mmol/L Normal 98-109 [facility] Comment on above: Performed By: #### B MP #### [facility] ([facility]) [address] [place] [address] VIR CO2 [Moles/Vol] 29 mmol/L Normal 22-32 [facility] Comment on above: Performed By: #### B MP #### [facility] ([facility]) [address] [place] [address] VIR Creatinine [Mass/Vol] 0.71 mg/dL Normal 0.60-1.30 [facility] Comment on above: Result Comment: METH OD TRACEABLE TO IDMS STANDARD Performed By: #### B MP #### [facility] ([facility]) [address] [place] [address] VIR EGFR (CKD-EPI) NON-RACE DEPENDENT >^90 Normal >=60 [facility] Comment on above: Result Comment: Repo rted eGFR is based on the CKD-EPI 2020 equation that does not use a race coefficient. Performed By: #### B MP #### [facility] ([facility]) [address] [place] [address] VIR Glucose [Mass/Vol] 101 mg/dL High 65-99 [facility] Comment on above: Performed By: #### B MP #### [facility] ([facility]) [address] [place] [address] VIR Potassium [Moles/Vol] 3.1 mmol/L Low 3.5-5.0 [facility] Comment on above: Performed By: #### B MP #### [facility] ([facility]) [address] [place] [address] VIR Sodium [Moles/Vol] 140 mmol/L Normal 134-146 [facility] Comment on above: Performed By: #### B MP #### [facility] ([facility]) [address] [place] [address] VIR Urea nitrogen [Mass/Vol] 21 mg/dL Normal 5-27 [facility] Comment on above: Performed By: #### B MP #### [facility] ([facility]) [address] [place] [address] VIR Basic Metabolic Panelon 06-2 Anion gap [Moles/Vol] 8 mmol/L 5 - 15 mmol/L [facility] Calcium [Mass/Vol] 9.2 mg/dL 8.5 - 10. 5 mg/dL [facility] Chloride [Moles/Vol] 103 mmol/L 98 - 10 9 mmol/L [facility] CO2 [Moles/Vol] 29 mmol/L 22 - 32 mmol/L [facility] Creatinine [Mass/Vol] 0.71 mg/dL 0.60 - 1.30 mg/dL [facility] Comment on above: METHOD TRACEABLE TO IDNJ STANDARD EGFR Non-Race Dependent - [facility] Comment on above: Reported eGFR is bas ed on the CKD-EPI 2020 equation that does not use a race coefficient. Glucose [Mass/Vol] 101 mg/dL High 65 - 99 mg/dL [facility] Interpretation and review of laboratory results Abnormal [facility] Potassium [Moles/Vol] 3.1 mmol/L Low 3.5 - 5.0 mmol/L [facility] Sodium [Moles/Vol] 140 mmol/L 134 - 146 mmol/L [facility] Urea nitrogen [Mass/Vol] 21 mg/dL 5 - 27 mg/dL [facility] CBC WITH AUTO DIFFERENTIALon 04-27-2025 BASOPHILS ABSOLUTE COUNT (10*3/UL) BY AUTOMATED COUNT 0.0 10*3/uL Normal 0.0-0.2 [facility] Comment on above: Performed By: #### B MP #### [facility] ([facility]) [address] [place] [address] VIR BASOPHILS RELATIVE PERCENT BY AUTOMATED COUNT 0.7 % Normal [facility] Comment on above: Performed By: #### B MP #### [facility] ([facility]) [address] [place] [address] VIR CELLAVISION DIFFERENTIAL TYPE AUTOMATED DIFFERENTIAL Normal [facility] Comment on above: Performed By: #### B MP #### [facility] ([facility]) [address] [place] [address] VIR Eosinophils (Bld) [#/Vol] 0.1 10*3/uL Normal 0.0-0.4 [facility] Comment on above: Performed By: #### B MP #### [facility] ([facility]) [address] [place] [address] VIR EOSINOPHILS RELATIVE PERCENT BY AUTOMATED COUNT 1.0 % Normal [facility] Comment on above: Performed By: #### B MP #### [facility] ([facility]) [address] [place] [address] VIR Erythrocyte distribution width (RBC) [Ratio] 14.5 % Normal 11.5-15 [facility] Comment on above: Performed By: #### B MP #### [facility] ([facility]) [address] [place] [address] VIR Hematocrit (Bld) [Volume fraction] 37.5 % Low 39-50 [facility] Comment on above: Performed By: #### B MP #### [facility] ([facility]) [address] [place] [address] VIR Hemoglobin (Bld) [Mass/Vol] 12.6 g/dL Low 13-17 [facility] Comment on above: Performed By: #### B MP #### [facility] ([facility]) [address] [place] [address] VIR LYMPHOCYTES ABSOLUTE COUNT (10*3/UL) BY AUTOMATED COUNT 1.1 10*3/uL Normal 1.0-3.5 [facility] Comment on above: Performed By: #### B MP #### [facility] ([facility]) [address] [place] [address] VIR LYMPHOCYTES RELATIVE PERCENT BY AUTOMATED COUNT 15.8 % Normal [facility] Comment on above: Performed By: #### B MP #### [facility] ([facility]) [address] [place] [address] VIR MCH (RBC) [Entitic mass] 29.4 pg Normal 27-34 [facility] Comment on above: Performed By: #### B MP #### [facility] ([facility]) [address] [place] [address] VIR MCHC (RBC) [Mass/Vol] 33.7 g/dL Normal 32-36 [facility] Comment on above: Performed By: #### B MP #### [facility] ([facility]) [address] [place] [address] VIR MCV (RBC) [Entitic vol] 87 fL Normal 80-100 [facility] Comment on above: Performed By: #### B MP #### [facility] ([facility]) [address] [place] [address] VIR MONOCYTES ABSOLUTE COUNT (10*3/UL) BY AUTOMATED COUNT 0.8 10*3/uL Normal 0.0-0.9 [facility] Comment on above: Performed By: #### B MP #### [facility] ([facility]) [address] [place] [address] VIR MONOCYTES RELATIVE PERCENT BY AUTOMATED COUNT 11.8 % Normal [facility] Comment on above: Performed By: #### B MP #### [facility] ([facility]) [address] [place] [address] VIR NEUTROPHILS ABSOLUTE COUNT BY AUTOMATED COUNT 5.0 10*3/uL Normal 1.5-6.6 [facility] Comment on above: Performed By: #### B MP #### [facility] ([facility]) [address] [place] [address] VIR NEUTROPHILS RELATIVE PERCENT BY AUTOMATED COUNT 70.7 % Normal [facility] Comment on above: Performed By: #### B MP #### [facility] ([facility]) [address] [place] [address] VIR Platelet mean volume (Bld) [Entitic vol] 9.4 fL Normal 7-12 [facility] Comment on above: Performed By: #### B MP #### [facility] ([facility]) [address] [place] [address] VIR Platelets (Bld) [#/Vol] 215 10*3/uL Normal 150-450 [facility] Comment on above: Performed By: #### B MP #### [facility] ([facility]) [address] [place] [address] VIR RBC COUNT 4.30 X10E12/L Normal 4.1-5.7 [facility] Comment on above: Performed By: #### B MP #### [facility] ([facility]) [address] [place] [address] VIR WBC (Bld) [#/Vol] 7.1 10*3/uL Normal 4-11 [facility] Comment on above: Performed By: #### B MP #### [facility] ([facility]) [address] [place] [address] VIR CBC auto differentialon 04-06 Basophils (Bld) [#/Vol] 0 10*3/uL 0.0 - 0.2 10*3/uL [facility] Basophils/100 WBC (Bld) 0.7 % [facility] Differential cell count method Nom (Bld) AUTOMATED DIFFERENTIAL [facility] Eosinophils (Bld) [#/Vol] 0.1 10*3/uL 0.0 - 0.4 10*3/uL [facility] Eosinophils/100 WBC (Bld) 1 % [facility] Erythrocyte distribution width (RBC) [Ratio] 14.5 % 11.5 - 15 % [facility] Hematocrit (Bld) [Volume fraction] 37.5 % Low 39 - 50 % [facility] Hemoglobin (Bld) [Mass/Vol] 12.6 g/dL Low 13 - 17 g/dL [facility] Interpretation and review of laboratory results Abnormal [facility] Lymphocytes (Bld) [#/Vol] 1.1 10*3/uL 1.0 - 3.5 10*3/uL [facility] Lymphocytes/100 WBC (Bld) 15.8 % [facility] MCH (RBC) [Entitic mass] 29.4 pg 27 - 34 pg [facility] MCHC (RBC) [Mass/Vol] 33.7 g/dL 32 - 3 6 g/dL [facility] MCV (RBC) [Entitic vol] 87 fL 80 - 100 fL [facility] Monocytes (Bld) [#/Vol] 0.8 10*3/uL 0.0 - 0.9 10*3/uL [facility] Monocytes/100 WBC (Bld) 11.8 % [facility] Neutrophils (Bld) [#/Vol] 5 10*3/uL 1.5 - 6.6 10*3/uL [facility] Neutrophils/100 WBC (Bld) 70.7 % [facility] Platelet mean volume (Bld) [Entitic vol] 9.4 fL 7 - 12 fL [facility] Platelets (Bld) [#/Vol] 215 10*3/uL [facility] RBC (Bld) [#/Vol] 4.3 10*6/uL [facility] WBC LM Ql (Sput) 7.1 [facility] MAGNESIUMon 04-27-2025 Magnesium [Mass/Vol] 2.0 mg/dL Normal 1.8-2.6 [facility] Comment on above: Performed By: #### B MP #### [facility] ([facility]) [address] [place] [address] VIR Magnesiumon 04-27-2025 Interpretation and review of laboratory results Normal [facility] Magnesium [Mass/Vol] 2 mg/dL 1.8 - 2 .6 mg/dL [facility] No Panel Informationon 04-27 [facility] POTASSIUMon 04-27-2025 Potassium [Moles/Vol] 3.4 mmol/L Low 3.5-5.0 [facility] Comment on above: Performed By: #### B MP #### [facility] ([facility]) [address] [place] [address] VIR PST TOPon 04-27-2025 Extra Tube Auto Resulted [facility] Potassiumon 04-27-2025 Interpretation and review of laboratory results Abnormal [facility] Potassium [Moles/Vol] 3.4 mmol/L Low 3.5 - 5.0 mmol/L [facility] BASIC METABOLIC PANELon 06-2 Anion gap [Moles/Vol] 10 mmol/L Normal 5-15 [facility] Comment on above: Performed By: #### B MP #### [facility] ([facility]) [address] [place] [address] VIR Calcium [Mass/Vol] 9.4 mg/dL Normal 8.5-10.5 [facility] Comment on above: Performed By: #### B MP #### [facility] ([facility]) [address] [place] [address] VIR Chloride [Moles/Vol] 104 mmol/L Normal 98-109 [facility] Comment on above: Performed By: #### B MP #### [facility] ([facility]) [address] [place] [address] VIR CO2 [Moles/Vol] 26 mmol/L Normal 22-32 [facility] Comment on above: Performed By: #### B MP #### [facility] ([facility]) [address] [place] [address] VIR Creatinine [Mass/Vol] 0.59 mg/dL Low 0.60-1.30 [facility] Comment on above: Result Comment: METH OD TRACEABLE TO IDMS STANDARD Performed By: #### B MP #### [facility] ([facility]) [address] [place] [address] VIR EGFR (CKD-EPI) NON-RACE DEPENDENT >^90 Normal >=60 [facility] Comment on above: Result Comment: Repo rted eGFR is based on the CKD-EPI 2020 equation that does not use a race coefficient. Performed By: #### B MP #### [facility] ([facility]) [address] [place] [address] VIR Glucose [Mass/Vol] 105 mg/dL High 65-99 [facility] Comment on above: Performed By: #### B MP #### [facility] ([facility]) [address] [place] [address] VIR Potassium [Moles/Vol] 3.0 mmol/L Low 3.5-5.0 [facility] Comment on above: Performed By: #### B MP #### [facility] ([facility]) [address] [place] [address] VIR Sodium [Moles/Vol] 140 mmol/L Normal 134-146 [facility] Comment on above: Performed By: #### B MP #### [facility] ([facility]) [address] [place] [address] VIR Urea nitrogen [Mass/Vol] 20 mg/dL Normal 5-27 [facility] Comment on above: Performed By: #### B MP #### [facility] ([facility]) [address] [place] [address] VIR Basic Metabolic Panelon 06- Anion gap [Moles/Vol] 10 mmol/L 5 - 15 mmol/L [facility] Calcium [Mass/Vol] 9.4 mg/dL 8.5 - 10. 5 mg/dL [facility] Chloride [Moles/Vol] 104 mmol/L 98 - 10 9 mmol/L [facility] CO2 [Moles/Vol] 26 mmol/L 22 - 32 mmol/L [facility] Creatinine [Mass/Vol] 0.59 mg/dL Low 0.60 - 1.30 mg/dL [facility] Comment on above: METHOD TRACEABLE TO IDMS STANDARD EGFR Non-Race Dependent - [facility] Comment on above: Reported eGFR is bas ed on the CKD-EPI 2020 equation that does not use a race coefficient. Glucose [Mass/Vol] 105 mg/dL High 65 - 99 mg/dL [facility] Interpretation and review of laboratory results Abnormal [facility] Potassium [Moles/Vol] 3 mmol/L Low 3.5 - 5.0 mmol/L [facility] Sodium [Moles/Vol] 140 mmol/L 134 - 146 mmol/L [facility] Urea nitrogen [Mass/Vol] 20 mg/dL 5 - 27 mg/dL [facility] CBC WITH AUTO DIFFERENTIALon 04-26-2025 BASOPHILS ABSOLUTE COUNT (10*3/UL) BY AUTOMATED COUNT 0.1 10*3/uL Normal 0.0-0.2 [facility] Comment on above: Performed By: #### B MP #### [facility] ([facility]) [address] [place] [address] VIR BASOPHILS RELATIVE PERCENT BY AUTOMATED COUNT 1.2 % Normal [facility] Comment on above: Performed By: #### B MP #### [facility] ([facility]) [address] [place] [address] VIR CELLAVISION DIFFERENTIAL TYPE AUTOMATED DIFFERENTIAL Normal [facility] Comment on above: Performed By: #### B MP #### [facility] ([facility]) [address] [place] [address] VIR Eosinophils (Bld) [#/Vol] 0.1 10*3/uL Normal 0.0-0.4 [facility] Comment on above: Performed By: #### B MP #### [facility] ([facility]) [address] [place] [address] VIR EOSINOPHILS RELATIVE PERCENT BY AUTOMATED COUNT 1.1 % Normal [facility] Comment on above: Performed By: #### B MP #### [facility] ([facility]) [address] [place] [address] VIR Erythrocyte distribution width (RBC) [Ratio] 14.6 % Normal 11.5-15 [facility] Comment on above: Performed By: #### B MP #### [facility] ([facility]) [address] [place] [address] VIR Hematocrit (Bld) [Volume fraction] 37.7 % Low 39-50 [facility] Comment on above: Performed By: #### B MP #### [facility] ([facility]) [address] [place] [address] VIR Hemoglobin (Bld) [Mass/Vol] 13.0 g/dL Normal 13-17 [facility] Comment on above: Performed By: #### B MP #### [facility] ([facility]) [address] [place] [address] VIR LYMPHOCYTES ABSOLUTE COUNT (10*3/UL) BY AUTOMATED COUNT 1.0 10*3/uL Normal 1.0-3.5 [facility] Comment on above: Performed By: #### B MP #### [facility] ([facility]) [address] [place] [address] VIR LYMPHOCYTES RELATIVE PERCENT BY AUTOMATED COUNT 14.1 % Normal [facility] Comment on above: Performed By: #### B MP #### [facility] ([facility]) [address] [place] [address] VIR MCH (RBC) [Entitic mass] 29.9 pg Normal 27-34 [facility] Comment on above: Performed By: #### B MP #### [facility] ([facility]) [address] [place] [address] VIR MCHC (RBC) [Mass/Vol] 34.6 g/dL Normal 32-36 [facility] Comment on above: Performed By: #### B MP #### [facility] ([facility]) [address] [place] [address] VIR MCV (RBC) [Entitic vol] 87 fL Normal 80-100 [facility] Comment on above: Performed By: #### B MP #### [facility] ([facility]) [address] [place] [address] VIR MONOCYTES ABSOLUTE COUNT (10*3/UL) BY AUTOMATED COUNT 0.7 10*3/uL Normal 0.0-0.9 [facility] Comment on above: Performed By: #### B MP #### [facility] ([facility]) [address] [place] [address] VIR MONOCYTES RELATIVE PERCENT BY AUTOMATED COUNT 10.1 % Normal [facility] Comment on above: Performed By: #### B MP #### [facility] ([facility]) [address] [place] [address] VIR NEUTROPHILS ABSOLUTE COUNT BY AUTOMATED COUNT 5.1 10*3/uL Normal 1.5-6.6 [facility] Comment on above: Performed By: #### B MP #### [facility] ([facility]) [address] [place] [address] VIR NEUTROPHILS RELATIVE PERCENT BY AUTOMATED COUNT 73.5 % Normal [facility] Comment on above: Performed By: #### B MP #### [facility] ([facility]) [address] [place] [address] VIR Platelet mean volume (Bld) [Entitic vol] 9.0 fL Normal 7-12 [facility] Comment on above: Performed By: #### B MP #### [facility] ([facility]) [address] [place] [address] VIR Platelets (Bld) [#/Vol] 205 10*3/uL Normal 150-450 [facility] Comment on above: Performed By: #### B MP #### [facility] ([facility]) [address] [place] [address] VIR RBC COUNT 4.35 X10E12/L Normal 4.1-5.7 [facility] Comment on above: Performed By: #### B MP #### [facility] ([facility]) [address] [place] [address] VIR WBC (Bld) [#/Vol] 7.0 10*3/uL Normal 4-11 [facility] Comment on above: Performed By: #### B MP #### [facility] ([facility]) [address] [place] [address] VIR CBC auto differentialon 06-2 2-2025 Basophils (Bld) [#/Vol] 0.1 10*3/uL 0.0 - 0.2 10*3/uL [facility] Basophils/100 WBC (Bld) 1.2 % [facility] Differential cell count method Nom (Bld) AUTOMATED DIFFERENTIAL [facility] Eosinophils (Bld) [#/Vol] 0.1 10*3/uL 0.0 - 0.4 10*3/uL [facility] Eosinophils/100 WBC (Bld) 1.1 % [facility] Erythrocyte distribution width (RBC) [Ratio] 14.6 % 11.5 - 15 % [facility] Hematocrit (Bld) [Volume fraction] 37.7 % Low 39 - 50 % [facility] Hemoglobin (Bld) [Mass/Vol] 13 g/dL 13 - 17 g/dL [facility] Interpretation and review of laboratory results Abnormal [facility] Lymphocytes (Bld) [#/Vol] 1 10*3/uL 1.0 - 3.5 10*3/uL [facility] Lymphocytes/100 WBC (Bld) 14.1 % [facility] MCH (RBC) [Entitic mass] 29.9 pg 27 - 34 pg [facility] MCHC (RBC) [Mass/Vol] 34.6 g/dL 32 - 3 6 g/dL [facility] MCV (RBC) [Entitic vol] 87 fL 80 - 100 fL [facility] Monocytes (Bld) [#/Vol] 0.7 10*3/uL 0.0 - 0.9 10*3/uL [facility] Monocytes/100 WBC (Bld) 10.1 % [facility] Neutrophils (Bld) [#/Vol] 5.1 10*3/uL 1.5 - 6.6 10*3/uL [facility] Neutrophils/100 WBC (Bld) 73.5 % [facility] Platelet mean volume (Bld) [Entitic vol] 9 fL 7 - 12 fL [facility] Platelets (Bld) [#/Vol] 205 10*3/uL [facility] RBC (Bld) [#/Vol] 4.35 10*6/uL [facility] WBC LM Ql (Sput) 7 [facility] BASIC METABOLIC PANELon 06-2 Anion gap [Moles/Vol] 11 mmol/L Normal 5-15 [facility] Comment on above: Performed By: #### B MP #### [facility] ([facility]) [address] [place] [address] VIR Calcium [Mass/Vol] 9.2 mg/dL Normal 8.5-10.5 [facility] Comment on above: Performed By: #### B MP #### [facility] ([facility]) [address] [place] [address] VIR Chloride [Moles/Vol] 106 mmol/L Normal 98-109 [facility] Comment on above: Performed By: #### B MP #### [facility] ([facility]) [address] [place] [address] VIR CO2 [Moles/Vol] 24 mmol/L Normal 22-32 [facility] Comment on above: Performed By: #### B MP #### [facility] ([facility]) [address] [place] [address] VIR Creatinine [Mass/Vol] 0.57 mg/dL Low 0.60-1.30 [facility] Comment on above: Result Comment: METH OD TRACEABLE TO IDMS STANDARD Performed By: #### B MP #### [facility] ([facility]) [address] [place] [address] VIR EGFR (CKD-EPI) NON-RACE DEPENDENT >^90 Normal >=60 [facility] Comment on above: Result Comment: Repo rted eGFR is based on the CKD-EPI 2020 equation that does not use a race coefficient. Performed By: #### B MP #### [facility] ([facility]) [address] [place] [address] VIR Glucose [Mass/Vol] 96 mg/dL Normal 65-99 [facility] Comment on above: Performed By: #### B MP #### [facility] ([facility]) [address] [place] [address] VIR Potassium [Moles/Vol] 3.4 mmol/L Low 3.5-5.0 [facility] Comment on above: Performed By: #### B MP #### [facility] ([facility]) [address] [place] [address] VIR Sodium [Moles/Vol] 141 mmol/L Normal 134-146 [facility] Comment on above: Performed By: #### B MP #### [facility] ([facility]) [address] [place] [address] VIR Urea nitrogen [Mass/Vol] 21 mg/dL Normal 5-27 [facility] Comment on above: Performed By: #### B MP #### [facility] ([facility]) [address] [place] [address] VIR Basic Metabolic Panelon 06-2 Anion gap [Moles/Vol] 11 mmol/L 5 - 15 mmol/L [facility] Calcium [Mass/Vol] 9.2 mg/dL 8.5 - 10. 5 mg/dL [facility] Chloride [Moles/Vol] 106 mmol/L 98 - 10 9 mmol/L [facility] CO2 [Moles/Vol] 24 mmol/L 22 - 32 mmol/L [facility] Creatinine [Mass/Vol] 0.57 mg/dL Low 0.60 - 1.30 mg/dL [facility] Comment on above: METHOD TRACEABLE TO IDMS STANDARD EGFR Non-Race Dependent - [facility] Comment on above: Reported eGFR is bas ed on the CKD-EPI 2020 equation that does not use a race coefficient. Glucose [Mass/Vol] 96 mg/dL 65 - 99 mg/dL [facility] Interpretation and review of laboratory results Abnormal [facility] Potassium [Moles/Vol] 3.4 mmol/L Low 3.5 - 5.0 mmol/L [facility] Sodium [Moles/Vol] 141 mmol/L 134 - 146 mmol/L [facility] Urea nitrogen [Mass/Vol] 21 mg/dL 5 - 27 mg/dL [facility] CBC WITH AUTO DIFFERENTIALon 04-25-2025 BASOPHILS ABSOLUTE COUNT (10*3/UL) BY AUTOMATED COUNT 0.1 10*3/uL Normal 0.0-0.2 [facility] Comment on above: Performed By: #### B MP #### [facility] ([facility]) [address] [place] [address] VIR BASOPHILS RELATIVE PERCENT BY AUTOMATED COUNT 0.7 % Normal [facility] Comment on above: Performed By: #### B MP #### [facility] ([facility]) [address] [place] [address] VIR CELLAVISION DIFFERENTIAL TYPE AUTOMATED DIFFERENTIAL Normal [facility] Comment on above: Performed By: #### B MP #### [facility] ([facility]) [address] [place] [address] VIR Eosinophils (Bld) [#/Vol] 0.2 10*3/uL Normal 0.0-0.4 [facility] Comment on above: Performed By: #### B MP #### [facility] ([facility]) [address] [place] [address] VIR EOSINOPHILS RELATIVE PERCENT BY AUTOMATED COUNT 2.5 % Normal [facility] Comment on above: Performed By: #### B MP #### [facility] ([facility]) [address] [place] [address] VIR Erythrocyte distribution width (RBC) [Ratio] 15.0 % Normal 11.5-15 [facility] Comment on above: Performed By: #### B MP #### [facility] ([facility]) [address] [place] [address] VIR Hematocrit (Bld) [Volume fraction] 39.0 % Normal 39-50 [facility] Comment on above: Performed By: #### B MP #### [facility] ([facility]) [address] [place] [address] VIR Hemoglobin (Bld) [Mass/Vol] 13.4 g/dL Normal 13-17 [facility] Comment on above: Performed By: #### B MP #### [facility] ([facility]) [address] [place] [address] VIR LYMPHOCYTES ABSOLUTE COUNT (10*3/UL) BY AUTOMATED COUNT 1.4 10*3/uL Normal 1.0-3.5 [facility] Comment on above: Performed By: #### B MP #### [facility] ([facility]) [address] [place] [address] VIR LYMPHOCYTES RELATIVE PERCENT BY AUTOMATED COUNT 17.5 % Normal [facility] Comment on above: Performed By: #### B MP #### [facility] ([facility]) [address] [place] [address] VIR MCH (RBC) [Entitic mass] 30.5 pg Normal 27-34 [facility] Comment on above: Performed By: #### B MP #### [facility] ([facility]) [address] [place] [address] VIR MCHC (RBC) [Mass/Vol] 34.4 g/dL Normal 32-36 [facility] Comment on above: Performed By: #### B MP #### [facility] ([facility]) [address] [place] [address] VIR MCV (RBC) [Entitic vol] 89 fL Normal 80-100 [facility] Comment on above: Performed By: #### B MP #### [facility] ([facility]) [address] [place] [address] VIR MONOCYTES ABSOLUTE COUNT (10*3/UL) BY AUTOMATED COUNT 0.9 10*3/uL Normal 0.0-0.9 [facility] Comment on above: Performed By: #### B MP #### [facility] ([facility]) [address] [place] [address] VIR MONOCYTES RELATIVE PERCENT BY AUTOMATED COUNT 11.1 % Normal [facility] Comment on above: Performed By: #### B MP #### [facility] ([facility]) [address] [place] [address] VIR NEUTROPHILS ABSOLUTE COUNT BY AUTOMATED COUNT 5.5 10*3/uL Normal 1.5-6.6 [facility] Comment on above: Performed By: #### B MP #### [facility] ([facility]) [address] [place] [address] VIR NEUTROPHILS RELATIVE PERCENT BY AUTOMATED COUNT 68.2 % Normal [facility] Comment on above: Performed By: #### B MP #### [facility] ([facility]) [address] [place] [address] VIR Platelet mean volume (Bld) [Entitic vol] 9.2 fL Normal 7-12 [facility] Comment on above: Performed By: #### B MP #### [facility] ([facility]) [address] [place] [address] VIR Platelets (Bld) [#/Vol] 204 10*3/uL Normal 150-450 [facility] Comment on above: Performed By: #### B MP #### [facility] ([facility]) [address] [place] [address] VIR RBC COUNT 4.39 X10E12/L Normal 4.1-5.7 [facility] Comment on above: Performed By: #### B MP #### [facility] ([facility]) [address] [place] [address] VIR WBC (Bld) [#/Vol] 8.0 10*3/uL Normal 4-11 [facility] Comment on above: Performed By: #### B MP #### [facility] ([facility]) [address] [place] [address] VIR CBC auto differentialon 04-06 Basophils (Bld) [#/Vol] 0.1 10*3/uL 0.0 - 0.2 10*3/uL [facility] Basophils/100 WBC (Bld) 0.7 % [facility] Differential cell count method Nom (Bld) AUTOMATED DIFFERENTIAL [facility] Eosinophils (Bld) [#/Vol] 0.2 10*3/uL 0.0 - 0.4 10*3/uL [facility] Eosinophils/100 WBC (Bld) 2.5 % [facility] Erythrocyte distribution width (RBC) [Ratio] 15 % 11.5 - 15 % [facility] Hematocrit (Bld) [Volume fraction] 39 % 39 - 50 % [facility] Hemoglobin (Bld) [Mass/Vol] 13.4 g/dL 13 - 17 g/dL [facility] Lymphocytes (Bld) [#/Vol] 1.4 10*3/uL 1.0 - 3.5 10*3/uL [facility] Lymphocytes/100 WBC (Bld) 17.5 % [facility] MCH (RBC) [Entitic mass] 30.5 pg 27 - 34 pg [facility] MCHC (RBC) [Mass/Vol] 34.4 g/dL 32 - 3 6 g/dL [facility] MCV (RBC) [Entitic vol] 89 fL 80 - 100 fL [facility] Monocytes (Bld) [#/Vol] 0.9 10*3/uL 0.0 - 0.9 10*3/uL [facility] Monocytes/100 WBC (Bld) 11.1 % [facility] Neutrophils (Bld) [#/Vol] 5.5 10*3/uL 1.5 - 6.6 10*3/uL [facility] Neutrophils/100 WBC (Bld) 68.2 % [facility] Platelet mean volume (Bld) [Entitic vol] 9.2 fL 7 - 12 fL [facility] Platelets (Bld) [#/Vol] 204 10*3/uL [facility] RBC (Bld) [#/Vol] 4.39 10*6/uL [facility] WBC LM Ql (Sput) 8 [facility] FL SWALLOW MOTILITY FUNCTION on 04-24-2025 FL SWALLOW MOTILITY FUNCTION FL SWALLOW MOTILITY FUNCTION FL SWALLOW MOTILITY FUNCTION HISTORY: Oropharyngeal dysphagia [...] for additional details and recommendations. Approved by Manuelito James MD on 04/24/2025 10:05 AM Juan R Rollins MD have personally reviewed the image(s) and agree with and/or edited the report Finalized by Juan R Jeffrey MD on 04/24/2025 11:[address] [facility] RF videography Hypopharynx a nd Esophagus Viewson 04-24-2025 FL SWALLOW MOTILITY FUNCTION HISTORY: Oropharyngeal dysphagia [...] for additional details and recommendations. Approved by Manuelito James MD on 04/24/2025 10:05 AM Juan R Rollins MD have personally reviewed the image(s) and agree with and/or edited the report Finalized by Juan R Jeffrey MD on 04/24/2025 11:15 AM [facility] Juan R Jeffrey MD - 04/24/2025 [place] [...] Deonte James MD on 04/24/2025 10:05 AM IJuan R MD have personally reviewed the image(s) and agree with and/or edited the report Finalized by Juan R Jeffrey MD on 04/24/2025 11:15 AM [facility] Radiology Study observation (narrative) [facility] RF videography Hypopharynx a nd Esophagus ViewsOrdered By: Juan R Jeffrey on 04-24-2025 [facility] Work Phone: AMMONIAon 04-23-2025 Ammonia (P) [Moles/Vol] 22 umol/L Normal 18-72 P [facility] Comment on above: Result Comment: R-Sp ecimen slightly hemolyzed, results increased Performed By: #### A MMON #### [facility] ([facility]) [address] [place] [address] VIR Ammoniaon 04-23-2025 Ammonia (P) [Moles/Vol] 22 umol/L 18 - 72 umol/L [facility] Comment on above: R-Specimen slightly hemolyzed, results increased Interpretation and review of laboratory results Normal [facility] BASIC METABOLIC PANELon 04-05 Anion gap [Moles/Vol] 9 mmol/L Normal 5-15 [facility] Comment on above: Performed By: #### B MP #### [facility] ([facility]) [address] [place] [address] VIR Calcium [Mass/Vol] 9.1 mg/dL Normal 8.5-10.5 [facility] Comment on above: Performed By: #### B MP #### [facility] ([facility]) [address] [place] [address] VIR Chloride [Moles/Vol] 108 mmol/L Normal 98-109 [facility] Comment on above: Performed By: #### B MP #### [facility] ([facility]) [address] [place] [address] VIR CO2 [Moles/Vol] 26 mmol/L Normal 22-32 [facility] Comment on above: Performed By: #### B MP #### [facility] ([facility]) [address] [place] [address] VIR Creatinine [Mass/Vol] 0.62 mg/dL Normal 0.60-1.30 [facility] Comment on above: Result Comment: METH OD TRACEABLE TO IDMS STANDARD Performed By: #### B MP #### [facility] ([facility]) [address] [place] [address] VIR EGFR (CKD-EPI) NON-RACE DEPENDENT >^90 Normal >=60 [facility] Comment on above: Result Comment: Repo rted eGFR is based on the CKD-EPI 2020 equation that does not use a race coefficient. Performed By: #### B MP #### [facility] ([facility]) [address] [place] [address] VIR Glucose [Mass/Vol] 102 mg/dL High 65-99 [facility] Comment on above: Performed By: #### B MP #### [facility] ([facility]) [address] [place] [address] VIR Potassium [Moles/Vol] 3.8 mmol/L Normal 3.5-5.0 [facility] Comment on above: Result Comment: R-Sp ecimen moderately hemolyzed, results increased Performed By: #### B MP #### [facility] ([facility]) [address] [place] [address] VIR Sodium [Moles/Vol] 143 mmol/L Normal 134-146 [facility] Comment on above: Performed By: #### B MP #### [facility] ([facility]) [address] [place] [address] VIR Urea nitrogen [Mass/Vol] 16 mg/dL Normal 5-27 [facility] Comment on above: Performed By: #### B MP #### [facility] ([facility]) [address] [place] [address] VIR Baseline Routine EEGon 04-23 Images from the original result were not included. [place] [facility] EEG REPORT EEG Service Date: 04/23/25 Date of Report: 04/23/25 History: Edvin Roland is a 79 y.o. male with long-term post-operative altered mental status since February, who is undergoing EEG to evaluate for seizures. Centrally active medications: None. Procedure: This EEG was acquired with electrodes placed according to the [id number] electrode placement system. The EEG was acquired [...] follow this study. Cydney Fernandez M.D., Ph.D. State Epidemiologist [place] [facility] MANUALLY TRANSCRIBED RESULTS Baseline Routine EEGOrdered By: Cydney Fernandez on 04-23-2025 [facility] Work Phone: Basic Metabolic Panelon 04-05 Anion gap [Moles/Vol] 9 mmol/L 5 - 15 mmol/L [facility] Calcium [Mass/Vol] 9.1 mg/dL 8.5 - 10. 5 mg/dL [facility] Chloride [Moles/Vol] 108 mmol/L 98 - 10 9 mmol/L [facility] CO2 [Moles/Vol] 26 mmol/L 22 - 32 mmol/L [facility] Creatinine [Mass/Vol] 0.62 mg/dL 0.60 - 1.30 mg/dL [facility] Comment on above: METHOD TRACEABLE TO IDMS STANDARD EGFR Non-Race Dependent - PINF P [facility] Comment on above: Reported eGFR is bas ed on the CKD-EPI 2020 equation that does not use a race coefficient. Glucose [Mass/Vol] 102 mg/dL High 65 - 99 mg/dL [facility] Interpretation and review of laboratory results Abnormal [facility] Potassium [Moles/Vol] 3.8 mmol/L 3.5 - 5.0 mmol/L [facility] Comment on above: R-Specimen moderatel y hemolyzed, results increased Sodium [Moles/Vol] 143 mmol/L 134 - 146 mmol/L [facility] Urea nitrogen [Mass/Vol] 16 mg/dL 5 - 27 mg/dL [facility] CBC WITH AUTO DIFFERENTIALon 04-23-2025 CELLAVISION DIFFERENTIAL TYPE MANUAL DIFFERENTIAL Normal [facility] Comment on above: Result Comment: This is an appended report. These results have been appended to a previously preliminary verified report. Performed By: #### C BCA #### [facility] ([facility]) [address] [place] [address] VIR CELLAVISION EOSINOPHILS ABSOLUTE COUNT (10*3/UL) BY MANUAL COUNT 0.1 10*3/uL Normal 0.0-0.4 [facility] Comment on above: Result Comment: This is an appended report. These results have been appended to a previously preliminary verified report. Performed By: #### C BCA #### [facility] ([facility]) [address] [place] [address] VIR CELLAVISION EOSINOPHILS PERCENT BY MANUAL COUNT 2 % Normal [facility] Comment on above: Result Comment: This is an appended report. These results have been appended to a previously preliminary verified report. Performed By: #### C BCA #### [facility] ([facility]) [address] [place] [address] VIR CELLAVISION LYMPHOCYTES ABSOLUTE COUNT (10*3/UL) BY MANUAL COUNT 1.3 10*3/uL Normal 1.0-3.5 [facility] Comment on above: Result Comment: This is an appended report. These results have been appended to a previously preliminary verified report. Performed By: #### C BCA #### [facility] ([facility]) [address] [place] [address] VIR CELLAVISION LYMPHOCYTES RELATIVE PERCENT BY MANUAL COUNT 18 % Normal [facility] Comment on above: Result Comment: This is an appended report. These results have been appended to a previously preliminary verified report. Performed By: #### C BCA #### [facility] ([facility]) [address] [place] [address] VIR CELLAVISION METAMYELOCYTES RELATIVE PERCENT BY MANUAL COUNT 2 % Normal [facility] Comment on above: Result Comment: This is an appended report. These results have been appended to a previously preliminary verified report. Performed By: #### C BCA #### [facility] ([facility]) [address] [place] [address] VIR CELLAVISION MONOCYTES ABSOLUTE COUNT (10*3/UL) IN BLOOD BY MANUAL COUNT 0.7 10*3/uL Normal 0.0-0.9 [facility] Comment on above: Result Comment: This is an appended report. These results have been appended to a previously preliminary verified report. Performed By: #### C BCA #### [facility] ([facility]) [address] [place] [address] VIR CELLAVISION MONOCYTES RELATIVE PERCENT BY MANUAL COUNT 10 % Normal [facility] Comment on above: Result Comment: This is an appended report. These results have been appended to a previously preliminary verified report. Performed By: #### C BCA #### [facility] ([facility]) [address] [place] [address] VIR CELLAVISION MYELOCYTE RELATIVE PERCENT BY MANUAL COUNT 1 % Normal [facility] Comment on above: Result Comment: This is an appended report. These results have been appended to a previously preliminary verified report. Performed By: #### C BCA #### [facility] ([facility]) [address] [place] [address] VIR CELLAVISION NEUTROPHILS ABSOLUTE COUNT BY MANUAL COUNT 5.1 10*3/uL Normal 1.5-6.6 [facility] Comment on above: Result Comment: This is an appended report. These results have been appended to a previously preliminary verified report. Performed By: #### C BCA #### [facility] ([facility]) [address] [place] [address] VIR CELLAVISION NEUTROPHILS RELATIVE PERCENT BY MANUAL COUNT 67 % Normal [facility] Comment on above: Result Comment: This is an appended report. These results have been appended to a previously preliminary verified report. Performed By: #### C BCA #### [facility] ([facility]) [address] [place] [address] VIR CELLAVISION RBC MORPHOLOGY Normal Normal [facility] Comment on above: Result Comment: This is an appended report. These results have been appended to a previously preliminary verified report. Performed By: #### C BCA #### [facility] ([facility]) [address] [place] [address] VIR Erythrocyte distribution width (RBC) [Ratio] 14.6 % Normal 11.5-15 [facility] Comment on above: Performed By: #### C BCA #### [facility] ([facility]) [address] [place] [address] VIR Hematocrit (Bld) [Volume fraction] 37.9 % Low 39-50 [facility] Comment on above: Performed By: #### C BCA #### [facility] ([facility]) [address] [place] [address] VIR Hemoglobin (Bld) [Mass/Vol] 12.7 g/dL Low 13-17 [facility] Comment on above: Performed By: #### C BCA #### [facility] ([facility]) [address] [place] [address] VIR MCH (RBC) [Entitic mass] 30.0 pg Normal 27-34 [facility] Comment on above: Performed By: #### C BCA #### [facility] ([facility]) [address] [place] [address] VIR MCHC (RBC) [Mass/Vol] 33.6 g/dL Normal 32-36 [facility] Comment on above: Performed By: #### C BCA #### [facility] ([facility]) [address] [place] [address] VIR MCV (RBC) [Entitic vol] 89 fL Normal 80-100 [facility] Comment on above: Performed By: #### C BCA #### [facility] ([facility]) [address] [place] [address] VIR Platelet mean volume (Bld) [Entitic vol] 9.2 fL Normal 7-12 [facility] Comment on above: Performed By: #### C BCA #### [facility] ([facility]) [address] [place] [address] VIR Platelets (Bld) [#/Vol] 269 10*3/uL Normal 150-450 [facility] Comment on above: Performed By: #### C BCA #### [facility] ([facility]) [address] [place] [address] VIR RBC COUNT 4.25 X10E12/L Normal 4.1-5.7 [facility] Comment on above: Performed By: #### C BCA #### [facility] ([facility]) [address] [place] [address] VIR WBC (Bld) [#/Vol] 7.4 10*3/uL Normal 4-11 [facility] Comment on above: Performed By: #### C CHANCE #### [facility] ([facility]) [address] [place] [address] VIR CBC auto differentialon 04-05 Differential cell count method Nom (Bld) MANUAL DIFFERENTIAL [facility] Comment on above: This is an appended report. These results have been appended to a previously preliminary verified report. Eosinophils (Bld) [#/Vol] 0.1 10*3/uL 0.0 - 0.4 10*3/uL [facility] Comment on above: This is an appended report. These results have been appended to a previously preliminary verified report. Eosinophils/100 WBC (Bld) 2 % [facility] Comment on above: This is an appended report. These results have been appended to a previously preliminary verified report. Erythrocyte distribution width (RBC) [Ratio] 14.6 % 11.5 - 15 % [facility] Hematocrit (Bld) [Volume fraction] 37.9 % Low 39 - 50 % [facility] Hemoglobin (Bld) [Mass/Vol] 12.7 g/dL Low 13 - 17 g/dL [facility] Interpretation and review of laboratory results Abnormal [facility] Lymphocytes (Bld) [#/Vol] 1.3 10*3/uL 1.0 - 3.5 10*3/uL [facility] Comment on above: This is an appended report. These results have been appended to a previously preliminary verified report. MCH (RBC) [Entitic mass] 30 pg 27 - 34 pg [facility] MCHC (RBC) [Mass/Vol] 33.6 g/dL 32 - 3 6 g/dL [facility] MCV (RBC) [Entitic vol] 89 fL 80 - 100 fL [facility] Metamyelocytes/100 WBC (Bld) 2 % [facility] Comment on above: This is an appended report. These results have been appended to a previously preliminary verified report. Monocytes (Bld) [#/Vol] 0.7 10*3/uL 0.0 - 0.9 10*3/uL [facility] Comment on above: This is an appended report. These results have been appended to a previously preliminary verified report. Monocytes/100 WBC (Bld) 10 % [facility] Comment on above: This is an appended report. These results have been appended to a previously preliminary verified report. Myelocytes/100 WBC (Bld) 1 % [facility] Comment on above: This is an appended report. These results have been appended to a previously preliminary verified report. Neutrophils (Bld) [#/Vol] 5.1 10*3/uL 1.5 - 6.6 10*3/uL [facility] Comment on above: This is an appended report. These results have been appended to a previously preliminary verified report. Neutrophils/100 WBC (Bld) 67 % [facility] Comment on above: This is an appended report. These results have been appended to a previously preliminary verified report. Platelet mean volume (Bld) [Entitic vol] 9.2 fL 7 - 12 fL [facility] Platelets (Bld) [#/Vol] 269 10*3/uL [facility] RBC (Bld) [#/Vol] 4.25 10*6/uL [facility] RBC (Bld) [#/Vol] Normal [facility] Comment on above: This is an appended report. These results have been appended to a previously preliminary verified report. Variant lymphocytes/100 WBC (Bld) 18 % [facility] [employer] Comment on above: This is an appended report. These results have been appended to a previously preliminary verified report. WBC LM Ql (Sput) 7.4 [facility] DISCONTINUE IN PROCESS EEG T ESTINGOrdered By: Documentation Systemgenerated on 04-23-2025 [facility] Work Phone: [place] FLUOROSCOPY UP TO 1 HOURo n 04-23-2025 [place] FLUOROSCOPY UP TO 1 HOUR [place] FLUOROSCOPY UP TO 1 HOUR FL FLUOROSCOPY UP TO 1 HOUR HISTORY: [...] by Wilbert Crews on 04/23/2025 10:07 AM Normal [facility] FOLATEon 04-23-2025 FOLIC ACID >^25.0 Normal >5.8 [facility] Comment on above: Performed By: #### F LISA #### [facility] ([facility]) [address] [place] [address] VIR Folateon 04-23-2025 Folate [Mass/Vol] ng/mL 5.8 - PINF ng/mL [facility] Holter monitor studyon 04-23 Images from the original result were not included. [place] [facility] Video/EEG Monitoring REPORT EEG Service Date(s): 04/23/25 from 06:05 until 09:09 Date of Report: 04/23/25 History: Edvin Roland is 79 y.o. male with altered mental status who is undergoing video/EEG monitoring to evaluate for seizures. Centrally active medications: None. Procedure: This video/EEG monitoring was acquired with electrodes placed according to the [id number] electrode placement system,using collodion. The EEG was [...] on this day. Cydney Fernandez M.D., Ph.D. State Epidemiologist [place] [facility] Background MANUALLY TRANSCRIBED RESULTS [facility] Images from the original result were not included. [place] [facility] Video/EEG Monitoring REPORT EEG Service Date(s): 04/23/25 @ 04:26 until 06:05 Date of Report: 04/23/25 History: Edvin Roland is 79 y.o. male with altered mental status who is undergoing video/EEG monitoring to evaluate for seizures. Centrally active medications: None. Procedure: This video/EEG monitoring was acquired with electrodes placed according to the [id number] electrode placement system,using collodion. The EEG was [...] of intermittent seizures. Cydney Fernandez M.D., Ph.D. State Epidemiologist [place] [facility] Background MANUALLY TRANSCRIBED RESULTS [facility] LIVER PANELon 04-23-2025 Albumin [Mass/Vol] 3.9 g/dL Normal 3.2-5.3 [facility] Comment on above: Performed By: #### L IVR #### [facility] ([facility]) [address] [place] [address] VIR ALP [Catalytic activity/Vol] 121 U/L Normal 39-130 [facility] Comment on above: Performed By: #### L IVR #### [facility] ([facility]) [address] [place] [address] VIR ALT [Catalytic activity/Vol] 12 U/L Normal <=40 [facility] Comment on above: Performed By: #### L IVR #### [facility] ([facility]) [address] [place] [address] VIR AST [Catalytic activity/Vol] 32 U/L Normal <=41 [facility] Comment on above: Performed By: #### L IVR #### [facility] ([facility]) [address] [place] [address] VIR Bilirubin [Mass/Vol] 0.6 mg/dL Normal 0.3-1.2 [facility] Comment on above: Performed By: #### L IVR #### [facility] ([facility]) [address] [place] [address] VIR Bilirubin.indirect [Mass/Vol] 0.1 mg/dL Normal <=0.4 [facility] Comment on above: Result Comment: R-Sp ecimen moderately hemolyzed, results decreased Performed By: #### L IVR #### [facility] ([facility]) [address] [place] [address] VIR Protein [Mass/Vol] 6.3 g/dL Normal 6.0-8.0 [facility] Comment on above: Performed By: #### L IVR #### [facility] ([facility]) [address] [place] [address] VIR Liver panelon 04-23-2025 Albumin [Mass/Vol] 3.9 g/dL 3.2 - 5.3 g/dL [facility] ALP [Catalytic activity/Vol] 121 U/L 39 - 130 U/L [facility] ALT No additional P-5'-P [Catalytic activity/Vol] 12 U/L NINF - 40 U/L [facility] AST [Catalytic activity/Vol] 32 U/L NINF - 41 U/L [facility] Bilirubin [Mass/Vol] 0.6 mg/dL 0.3 - 1 .2 mg/dL [facility] Bilirubin.direct [Mass/Vol] 0.1 mg/dL NINF - 0.4 mg/dL [facility] Comment on above: R-Specimen moderatel y hemolyzed, results decreased Interpretation and review of laboratory results Normal [facility] Protein [Mass/Vol] 6.3 g/dL 6.0 - 8.0 g/dL [facility] No Panel Informationon 04-23 Interpretation and review of laboratory results Normal [facility] RF Less than 1 houron 2024 FL FLUOROSCOPY UP TO 1 HOUR HISTORY: [...] by Wilbert Crews on 04/23/2025 10:07 AM Wilbert Lopez MD - 04/23/2025 [place] FLUOROSCOPY UP TO [...] by Wilbert Crews on 04/23/2025 10:07 AM [facility] Radiology Study observation (narrative) [facility] RF Less than 1 hourOrdered B y: Wilbert Crews on 04-23-2025 [facility] Work Phone: TSHon 04-23-2025 TSH Qn 1.9 m[IU]/L [facility] TSH 1.90 uIU/mL Normal 0.49-4.67 [facility] Comment on above: Performed By: #### T SH #### [facility] ([facility]) [address] [place] [address] VIR URINALYSISon 04-23-2025 Bilirubin Ql (U) Negative Normal Negative [facility] Comment on above: Performed By: #### U A #### [facility] ([facility]) [address] [place] [address] VIR BLOOD/HGB Negative Normal Negative [facility] Comment on above: Performed By: #### U A #### [facility] ([facility]) [address] [place] [address] VIR Color (U) Yellow Normal Yellow, Colorless [facility] Comment on above: Performed By: #### U A #### [facility] ([facility]) [address] [place] [address] VIR Glucose Ql (U) Negative Normal Negative [facility] Comment on above: Performed By: #### U A #### [facility] ([facility]) [address] [place] [address] VIR Ketones Ql (U) Negative Normal Negative [facility] Comment on above: Performed By: #### U A #### [facility] ([facility]) [address] [place] [address] VIR Leukocyte esterase Test strip Ql (U) Negative Normal Negative [facility] Comment on above: Performed By: #### U A #### [facility] ([facility]) [address] [place] [address] VIR Nitrite Ql (U) Negative Normal Negative [facility] Comment on above: Performed By: #### U A #### [facility] ([facility]) [address] [place] [address] VIR PH,URINE 7.0 Normal 5.0-8.5 [facility] Comment on above: Performed By: #### U A #### [facility] ([facility]) [address] [place] [address] VIR Protein Ql (U) Negative Normal Negative [facility] Comment on above: Performed By: #### U A #### [facility] ([facility]) [address] [place] [address] VIR Specific gravity (U) [Rel density] 1.020 Normal 1.003-1.035 [facility] Comment on above: Performed By: #### U A #### [facility] ([facility]) [address] [place] [address] VIR TURBIDITY Clear Normal Clear [facility] Comment on above: Performed By: #### U A #### [facility] ([facility]) [address] [place] [address] VIR UROBILINOGEN <1.1 eu/dL Normal <1.1 eu/dL [facility] Comment on above: Performed By: #### U A #### [facility] ([facility]) [address] [place] [address] VIR Urinalysison 04-23-2025 Bilirubin Ql (U) Negative Negative [facility] Color (U) Yellow Yellow, Colorless [facility] Glucose (U) [Mass/Vol] Negative Negative [facility] Hemoglobin Auto test strip Ql (U) Negative Negative [facility] Interpretation and review of laboratory results Normal [facility] Ketones (U) [Mass/Vol] Negative Negative [facility] Leukocyte esterase Auto test strip Ql (U) Negative Negative [facility] Nitrite Auto test strip Ql (U) Negative Negative [facility] pH (U) 7 [pH] 5.0 - 8.5 [facility] Protein (U) [Mass/Vol] Negative Negative [facility] Specific gravity Refractometry automated (U) [Rel density] 1.02 1.003 - 1.035 [facility] Turbidity Ql (U) Clear Clear [facility] Urobilinogen Qn (U) {Kathia'U}/dL <1.1 eu/dL P [facility] VITAMIN B12on 04-23-2025 Cobalamin (Vitamin B12) [Mass/Vol] 689 pg/mL Normal 180-914 [facility] Comment on above: Performed By: #### B 12 #### [facility] (TT) [address] [place] [address] VIR Vitamin B12on 04-23-2025 Cobalamin (Vitamin B12) [Mass/Vol] 689 pg/mL 180 - 914 pg/mL [facility] Borrelia burgdorferi IgG+IgM Ab [Presence] in Serum by ImmunoassayOrdered By: Beverly Lane on 04-22-2025 B. burgdorferi IgG+IgM IA Ql (S) Negative Negative [facility] Comment on above: Lyme antibodies not detected. Reflex testing is notindicated.No laboratory evidence of infection with B. burgdorferi(Lyme disease). Negative results may occur in patientsrecently infected (less than or equal to 14 days) with B.burgdorferi. If recent infection is suspected, repeattesting on a new sample collected in 7 to 14 days isrecommended.Performed at: [facility] [id number] Director: Harpreet Madden PhD, Phone: [phone] Estimated glomerular filtrat ion rate (GFR) non- AmericanOrdered By: Vinny Porter on 04-22-2025 GFR/1.73 sq M.predicted among non-blacks MDRD (S/P/Bld) [Vol rate/Area] mL/min/{1.73_m2} >=60 mL/min/1.73 m 2 [facility] - Chemistry and C hemistry - challengeOrdered By: Beverly Lane on 04-22-2025 Ammonia (P) [Moles/Vol] 11 umol/L 11-[address] [facility] HCO3 (Bld) [Moles/Vol] 27.9 mmol/L High 22.0-26.[address] [facility] - Chemistry and C hemistry - challengeOrdered By: Vinny Porter on 04-22-2025 Calcium [Mass/Vol] 9.2 mg/dL 8.5-10.1 [facility] Chloride [Moles/Vol] 105 mmol/L 98-107 [facility] CO2 [Moles/Vol] 28.0 mmol/L 21.0-32.0 [facility] Creatinine [Mass/Vol] 0.96 mg/dL 0.70-1.30 [facility] GFR/1.73 sq M.predicted MDRD (S/P/Bld) [Vol rate/Area] mL/min/{1.73_m2} >=60 mL/min/1.73 m 2 [facility] Glucose [Mass/Vol] 107 mg/dL High 74-106 [facility] Potassium [Moles/Vol] 3.0 mmol/L Low 3.5-5.1 [facility] Sodium [Moles/Vol] 144 mmol/L 136-145 [facility] Urea nitrogen [Mass/Vol] 14.0 mg/dL 7.0-18.0 [facility] Urea nitrogen/Creatinine [Mass ratio] 14.6 mg/mg [facility] - Hematology and Cell countsOrdered By: Beverly Lane on 04-22-2025 ESR (Bld) [Velocity] 21 mm/h High <=20 [facility] No Panel InformationOrdered By: Beverly Lane on 04-22-2025 25-Hydroxy Vitamin D Total 37.1 ng/mL 30.0-100.0 [facility] Comment on above: Vitamin D deficiency has been defined by the [place] of[place]icine and an Endocrine Society practice guideline as alevel of serum 25-OH vitamin D less than 20 ng/mL (1,2).The Endocrine Society went on to further define vitamin Dinsufficiency as a level between 21 and 29 ng/mL (2).1. IOM ([place] of Medicine). 2010. Dietary reference intakes for calcium and D. [place]: The National Academies Press.2. Ruel MF, Matias PEREZ, Edmond MACKENZIE, et al. Evaluation, treatment, and prevention of vitamin D deficiency: an Endocrine Society clinical practice guideline. JCEM. 2010; 96(7):1911-30.Performed at: [facility] [address] [id number] Director: Harpreet Madden PhD, Phone: [phone] C-Reactive Protein, Quantitative <0.50 mg/dL <=0.50 [facility] Sebastian Test Positive POSITIVE [facility] Arterial Blood Base Excess 4.1 mmol/L High <2.0-2.0 [facility] Arterial Blood Oxygen Saturation 95.2 % [facility] Arterial Blood Partial Pressure CO2 39.4 mm[Hg] 35.0-45.0 [facility] Arterial Blood Partial Pressure O2 68.7 mm[Hg] Low 80.0-100.0 [facility] Arterial Blood pH 7.459 High 7.350-7.450 [facility] Blood Gas Sample Site RR [facility] Oxygen Delivery Device RA [facility] Serum or plasma anion gap de terminationOrdered By: Yamiledacalixto Porter on 04-22-2025 Anion gap [Moles/Vol] 14.0 mmol/L [facility] Basophils Auto (Bld) [#/Vol] Ordered By: Obaydah Oliomar on 04-21-2025 Basophils (Bld) [#/Vol] 0.0 10 3/uL 0.0-0.1 [facility] Basophils/100 WBC Auto (Bld) Ordered By: Obgabrieldacalixto Bairdomar on 04-21-2025 Basophils/100 WBC (Bld) 0.5 % 0.2-2.[address] [facility] Eosinophils/100 WBC Auto (Bl d)Ordered By: Obgabrieldah Oliomar on 04-21-2025 Eosinophils/100 WBC (Bld) 2.0 % 0.9-7.0 [facility] Erythrocyte distribution wid th Auto (RBC) [Ratio]Ordered By: Obgabrieldah Oliomar on 04-21-2025 Erythrocyte distribution width (RBC) [Ratio] 13.8 % 11.0-15.0 [facility] Estimated glomerular filtrat ion rate (GFR) non- AmericanOrdered By: Obgabrieldah Oliomar on 04-21-2025 GFR/1.73 sq M.predicted among non-blacks MDRD (S/P/Bld) [Vol rate/Area] mL/min/{1.73_m2} >=60 mL/min/1.73 m 2 [facility] Globulin Calc (S) [Mass/Vol] Ordered By: Obgabrieldah Oliomar on 04-21-2025 Globulin (S) [Mass/Vol] 3.2 g/dL F [facility] Hematocrit Auto (Bld) [Volum e fraction]Ordered By: Obgabrieldah Oliomar on 04-21-2025 Hematocrit (Bld) [Volume fraction] 38.9 % Low 42.0-54.0 [facility] Hemoglobin [Mass/volume] in BloodOrdered By: Obgabrieldah Daromar on 04-21-2025 Hemoglobin (Bld) [Mass/Vol] 13.3 g/dL Low 14.0-18.0 [facility] - Chemistry and C hemistry - challengeOrdered By: Obaydah Daromar on 04-21-2025 Potassium [Moles/Vol] 3.2 mmol/L Low 3.5-5.1 [facility] Albumin [Mass/Vol] 3.2 g/dL Low 3.4-5.0 [facility] ALP [Catalytic activity/Vol] 149 U/L High 46-116 [facility] ALT [Catalytic activity/Vol] 24 U/L 16-63 [facility] AST [Catalytic activity/Vol] 21 U/L 15-37 [facility] Bilirubin [Mass/Vol] 0.5 mg/dL 0.2-1.0 [facility] Calcium [Mass/Vol] 9.2 mg/dL 8.5-10.1 [facility] Chloride [Moles/Vol] 105 mmol/L 98-107 [facility] CO2 [Moles/Vol] 30.9 mmol/L 21.0-32.0 [facility] Cobalamin (Vitamin B12) [Mass/Vol] 670 pg/mL 232-1245 [facility] Comment on above: Performed at: - [facility] [address] [id number] Director: Harpreet Madden PhD, Phone: [phone] Creatinine [Mass/Vol] 0.55 mg/dL Low 0.70-1.30 [facility] GFR/1.73 sq M.predicted MDRD (S/P/Bld) [Vol rate/Area] mL/min/{1.73_m2} >=60 mL/min/1.73 m 2 [facility] Glucose [Mass/Vol] 103 mg/dL 74-106 [facility] Magnesium [Mass/Vol] 2.0 mg/dL 1.8-2.4 [facility] Natriuretic peptide B (Bld) [Mass/Vol] 131.0 pg/mL <=1800.0 [facility] Protein [Mass/Vol] 6.4 g/dL 6.4-8.2 [facility] Sodium [Moles/Vol] 144 mmol/L 136-145 [facility] TSH Qn 1.516 m[IU]/L 0.358-3.740 [facility] Urea nitrogen [Mass/Vol] 14.0 mg/dL 7.0-18.0 [facility] Urea nitrogen/Creatinine [Mass ratio] 25.5 mg/mg [facility] - Hematology and Cell countsOrdered By: Vinny Porter on 04-21-2025 Immature granulocytes/100 WBC (Bld) 0.6 % High 0.0-0.5 [facility] Leukocytes [#/volume] correc yina for nucleated erythrocytes in Blood by Automated counOrdered By: Vinny Bairdomar on 04-21-2025 WBC corrected for nucl RBC Auto (Bld) [#/Vol] 6.6 10 3/uL 4.0-11.0 [facility] Lymphocytes Auto (Bld) [#/Vo l]Ordered By: Objovanni Bairdomar on 04-21-2025 Lymphocytes (Bld) [#/Vol] 1.4 10 3/uL 1.2-3.8 [facility] Lymphocytes/100 WBC Auto (Bl d)Ordered By: Obgabrieldacalixto Bairdomar on 04-21-2025 Lymphocytes/100 WBC (Bld) 21.0 % 20.5-60.0 [facility] MCH Auto (RBC) [Entitic mass ]Ordered By: Obgabrieldacalixto Bairdomar on 04-21-2025 MCH (RBC) [Entitic mass] 30.6 pg 25.9-34.0 [facility] MCHC Auto (RBC) [Mass/Vol]Or dered By: Obgabrieldacalixto Bairdomar on 04-21-2025 MCHC (RBC) [Mass/Vol] 34.2 g/dL 29.9-35.2 [facility] MCV Auto (RBC) [Entitic vol] Ordered By: Obgabrieldacalixto Bairdomar on 04-21-2025 MCV (RBC) [Entitic vol] 89.6 fL 80.0-94.[address] [facility] Monocytes Auto (Bld) [#/Vol] Ordered By: Obgabrieldacalixto Bairdomar on 04-21-2025 Monocytes (Bld) [#/Vol] 0.6 10 3/uL 0.3-0.8 [facility] Monocytes/100 WBC Auto (Bld) Ordered By: Obgabrieldacalixto Bairdomar on 04-21-2025 Monocytes/100 WBC (Bld) 9.0 % 1.7-12.[address] [facility] Neutrophils Auto (Bld) [#/Vo l]Ordered By: Obgabrieldacalixto Bairdomar on 04-21-2025 Neutrophils (Bld) [#/Vol] 4.4 10 3/uL 1.4-6.5 [facility] Neutrophils/100 WBC Auto (Bl d)Ordered By: Obgabrieldah Daromar on 04-21-2025 Neutrophils/100 WBC (Bld) 66.9 % 43.0-75.0 [facility] No Panel InformationOrdered By: Obaydah Daromar on 04-21-2025 Eosinophils # (Auto) 0.1 10 3/uL 0.0-0.7 [facility] Folate 15.30 ng/mL 8.60-58.90 [facility] Immature Granulocyte # (Auto) 0.04 10 3/uL High 0.00-0.03 [facility] Platelet mean volume Auto (B ld) [Entitic vol]Ordered By: Obaydah Daromar on 04-21-2025 Platelet mean volume (Bld) [Entitic vol] 10.8 fL 9.5-13.5 [facility] Platelets Auto (Bld) [#/Vol] Ordered By: Obaydah Daromar on 04-21-2025 Platelets (Bld) [#/Vol] 261 10 3/uL 150-450 [facility] RBC Auto (Bld) [#/Vol]Ordere d By: Obaydah Daromar on 04-21-2025 RBC (Bld) [#/Vol] 4.34 10 6/uL Low 4.70-6.10 [facility] Serum or plasma albumin/glob ulin mass ratioOrdered By: Obgabrieldah Daromar on 04-21-2025 Albumin/Globulin [Mass ratio] 1.0 {ratio} [facility] Serum or plasma anion gap de terminationOrdered By: Obaydah Daromar on 04-21-2025 Anion gap [Moles/Vol] 10.8 mmol/L Fi [facility] Basophils Auto (Bld) [#/Vol] on 04-20-2025 Basophils (Bld) [#/Vol] 0.0 10 3/uL 0.0-0.1 [facility] Basophils/100 WBC Auto (Bld) on 04-20-2025 Basophils/100 WBC (Bld) 0.5 % 0.2-2.[address] [facility] Eosinophils/100 WBC Auto (Bl d)on 04-20-2025 Eosinophils/100 WBC (Bld) 2.3 % 0.9-7.0 [facility] Erythrocyte distribution wid th Auto (RBC) [Ratio]on 04-20-2025 Erythrocyte distribution width (RBC) [Ratio] 13.8 % 11.0-15.0 [facility] Estimated glomerular filtrat ion rate (GFR) non- Americanon 04-20-2025 GFR/1.73 sq M.predicted among non-blacks MDRD (S/P/Bld) [Vol rate/Area] mL/min/{1.73_m2} >=60 mL/min/1.73 m 2 [facility] Globulin Calc (S) [Mass/Vol] on 04-20-2025 Globulin (S) [Mass/Vol] 3.3 g/dL [facility] Hematocrit Auto (Bld) [Volum e fraction]on 04-20-2025 Hematocrit (Bld) [Volume fraction] 40.2 % Low 42.0-54.0 [facility] Hemoglobin [Mass/volume] in Bloodon 04-20-2025 Hemoglobin (Bld) [Mass/Vol] 13.3 g/dL Low 14.0-18.0 [facility] - Chemistry and C hemistry - challengeon 04-20-2025 Bilirubin Ql (U) MODERATE Abnormal NEGATIVE [facility] Glucose (U) [Mass/Vol] Negative NEGATIVE [facility] Ketones Q[facility] (U) Negative NEGATIVE [facility] pH (U) 6.5 [pH] 5.0-9.0 [facility] Specific gravity (U) [Rel density] 1.020 1.005-1.025 [facility] Urobilinogen Qn (U) 0.2 {Kathia'U}/dL 0.2-1.0 [facility] Albumin [Mass/Vol] 3.3 g/dL Low 3.4-5.0 [facility] ALP [Catalytic activity/Vol] 162 U/L High 46-116 [facility] ALT [Catalytic activity/Vol] 20 U/L 16-63 [facility] AST [Catalytic activity/Vol] 15 U/L 15-37 [facility] Bilirubin [Mass/Vol] 0.5 mg/dL 0.2-1.0 [facility] Bilirubin.direct [Mass/Vol] 0.1 mg/dL 0.0-0.2 [facility] Calcium [Mass/Vol] 9.6 mg/dL 8.5-10.1 [facility] Chloride [Moles/Vol] 105 mmol/L 98-107 [facility] CO2 [Moles/Vol] 29.0 mmol/L 21.0-32.0 [facility] Creatinine [Mass/Vol] 0.70 mg/dL 0.70-1.30 [facility] GFR/1.73 sq M.predicted MDRD (S/P/Bld) [Vol rate/Area] mL/min/{1.73_m2} >=60 mL/min/1.73 m 2 [facility] Glucose [Mass/Vol] 112 mg/dL High 74-106 [facility] Potassium [Moles/Vol] 3.1 mmol/L Low 3.5-5.1 [facility] Protein [Mass/Vol] 6.6 g/dL 6.4-8.2 [facility] Sodium [Moles/Vol] 144 mmol/L 136-145 [facility] Urea nitrogen [Mass/Vol] 17.0 mg/dL 7.0-18.0 [facility] Urea nitrogen/Creatinine [Mass ratio] 24.3 mg/mg [facility] - Hematology and Cell countson 04-20-2025 Immature granulocytes/100 WBC (Bld) 1.0 % High 0.0-0.5 [facility] - Specimen inform ationon 04-20-2025 Appearance (U) CLEAR CLEAR [facility] Color (U) YELLOW YELLOW [facility] - Urinalysison Leukocyte esterase Test strip Ql (U) Negative NEGATIVE [facility] Mucus Ql (Urine sed) SMALL Abnormal NONE SEEN [facility] Nitrite Ql (U) Negative NEGATIVE [facility] Protein Ql (U) Negative NEG/TRACE [facility] Leukocytes [#/volume] correc yina for nucleated erythrocytes in Blood by Automated counon 04-20-2025 WBC corrected for nucl RBC Auto (Bld) [#/Vol] 6.2 10 3/uL 4.0-11.0 [facility] Lymphocytes Auto (Bld) [#/Vo l]on 04-20-2025 Lymphocytes (Bld) [#/Vol] 1.2 10 3/uL 1.2-3.8 [facility] Lymphocytes/100 WBC Auto (Bl d)on 04-20-2025 Lymphocytes/100 WBC (Bld) 20.0 % Low 20.5-60.0 [facility] MCH Auto (RBC) [Entitic mass ]on 04-20-2025 MCH (RBC) [Entitic mass] 29.8 pg 25.9-34.0 [facility] MCHC Auto (RBC) [Mass/Vol]on 04-20-2025 MCHC (RBC) [Mass/Vol] 33.1 g/dL 29.9-35.2 [facility] MCV Auto (RBC) [Entitic vol] on 04-20-2025 MCV (RBC) [Entitic vol] 90.1 fL 80.0-94.[address] [facility] Monocytes Auto (Bld) [#/Vol] on 04-20-2025 Monocytes (Bld) [#/Vol] 0.6 10 3/uL 0.3-0.8 [facility] Monocytes/100 WBC Auto (Bld) on 04-20-2025 Monocytes/100 WBC (Bld) 9.7 % 1.7-12.[address] [facility] Neutrophils Auto (Bld) [#/Vo l]on 04-20-2025 Neutrophils (Bld) [#/Vol] 4.1 10 3/uL 1.4-6.5 [facility] Neutrophils/100 WBC Auto (Bl d)on 04-20-2025 Neutrophils/100 WBC (Bld) 66.5 % 43.0-75.0 [facility] No Panel Informationon 04-20 Urine Bacteria TRACE #/HPF Abnormal NONE SEEN [facility] Urine Occult Blood Negative NEGATIVE [facility] Urine Other Casts NONE SEEN #/LPF NONE SEEN [facility] Urine Other Crystals None Seen #/HPF None Seen [facility] Urine RBC NONE SEEN #/HPF 0-2 [facility] Urine Squamous Epithelial Cells RARE #/LPF NONE/RARE [facility] Urine WBC 0-2 #/HPF Abnormal NONE SEEN [facility] Eosinophils # (Auto) 0.1 10 3/uL 0.0-0.7 [facility] Immature Granulocyte # (Auto) 0.06 10 3/uL High 0.00-0.03 [facility] Platelet mean volume Auto (B ld) [Entitic vol]on 04-20-2025 Platelet mean volume (Bld) [Entitic vol] 10.6 fL 9.5-13.5 [facility] Platelets Auto (Bld) [#/Vol] on 04-20-2025 Platelets (Bld) [#/Vol] 259 10 3/uL 150-450 [facility] RBC Auto (Bld) [#/Vol]on RBC (Bld) [#/Vol] 4.46 10 6/uL Low 4.70-6.10 [facility] Serum or plasma albumin/glob ulin mass ratioon 04-20-2025 Albumin/Globulin [Mass ratio] 1.0 {ratio} [facility] Serum or plasma anion gap de terminationon 04-20-2025 Anion gap [Moles/Vol] 13.1 mmol/L [facility] Consultation/Specialist Note on 04-07-2025 Consultation/Specialist Note [id number]. [id number] [facility] C Bldon 03-11-2025 C Bld -- - Final No growth at 5 days. Normal [facility] Comment on above: Performed By: #### C [id number] #### [facility] [address] [place] [address] C Bld pt care in room. duncan collins check back later 03/06/2025 11:59:19 EDTck - Final No growth at 5 days. Normal [facility] Comment on above: Performed By: #### C [id number] #### [address] [address] C Urineon 03-08-2025 C Urine Order added by Darius rn rule. - Final >100,000 cfu/ml Proteus mirabilis isolated [...] S 1 V Nitrofurantoin R 128 V Piperacillin/Tazobacta m S <=4 V Trimethoprim/Sulfa R [id number] V [facility] Comment on above: Performed By: #### C BC #### [address] [address] Inpatient Clinical Summaryon 03-08-2025 Inpatient Clinical Summary [address] [address] [phone] [address] [phone] Clinical Summary Person Information Name: Edvin Roland Age: 79 Years : 1945 Sex: Male PCP: Dorothy Hall DO Marital Status: Phone: PCP: Race: White Ethnicity: Not or Language: Lao Visit Id: Visit Reason: Speciality: Acuity: Enc Type: Inpatient Med Service: Medicine-General Arrival: 02/24/2025 12:00:25 Discharge: Dispo Type: Address: [address] [place] [phone] Preferred Communication Mode: Verbal Preferred Language: Lao Discharge Diagnosis: Ankle swelling; Bladder incontinence; Chronic constipation; Chronic gout; Chronic lower back pain; Foot drop, bilateral; Hypertension; Lumbar stenosis with neurogenic claudication; OAB (overactive bladder); SOB (shortness of breath) on exertion [facility] Mode of Discharge 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: Home Treatments: Devices/Equipment: Professional Skilled Services: Special Services and Community Resources: Discharge Orders: Follow up with Primary Care Provider (PCP) 03/08/25 9:40:00 EDT, 1 to 2 weeks Assisted Facility Certification 03/08/25 9:40:00 EDT, Skilled, I certify [facility] facility stay is anticipated to be LESS [...] Ambulatory Referrals Treatment and Wound Care Clinical [place] Withdrawl Assessment 03/02/25 2:26:00 EDT, q6hr, Q6h [...] range between ( 27.2 and 40.8 ) [place] Auto: 17.2 % -- Normal range between [...] ) Mon (more content not included)... Normal [facility] 03-08-2025 [facility] Serology[facility] Negative Normal Negative [facility] Comment on above: Result Comment: No e vidence of antibodies to B. burgdorferi detected. False negative results may occur in recently infected patients (<=2 weeks) due to low or undetectable antibody levels to B. burgdorferi. If recent exposure is suspected, a second sample should be collected and tested in 2-4 weeks. Test Performed by: [facility] [place] [address] Solution Design Engineer: Aaron De Leon Ph.D.; CLIA# [id number] Performed By: #### T #### [address] [address] Orthopedic Progress Noteon 0 03-08-2025 Orthopedic Progress Note Subjective patient doing better today, alert to person and time, able to tell me he is [place] and states he does remember having back [...] Mild senescent changes, described above. Signed By: Leeann Arellano MD Physical Exam Awakens to voice, alert and [...] Daily heparin, 5000 units= 1 mL, Subcutaneous, [id number]-[id number] Times hydroCHLOROthiazide, 25 mg, Oral, Daily Klor-Con [...] HS (at bedtime) Tylenol, 650 mg, Oral, [id number] Times, PRN Zofran, 4 mg= 2 mL, IV Push, q4hr, PRN Assessment/Plan POD#12 s/p L2-5 decompression and fusion with durotomy Plan: 1. Tylenol prn pain 2. Activity - as tolerated. PT/OT, back brace when ambulating. 3. AM labs 4. Hospitalist consult and Neuro consult, appreciate input from both specialities 5. Discharge pending - SNF once medically stable Electronically signed by Christian Rae PA-C 03/08/25 07:58 EDT Normal [facility] Progress Note-Nurseon 2024 Progress Note-Nurse Report called to Donna Jerry [facility]. Electronically signed by Susanne Sainz 03/08/25 11:53 EDT Normal [facility] Progress Note-Nurse Attempt to call repo rt to [facility], per staff they wouldn't take report until they reviewed faxed information. Number left with nurse. at bedside here at [facility] and aware of discharge. Electronically signed by Susanne Sainz 03/08/25 11:38 EDT Normal [facility] .eGFRon 03-07-2025 GFR/1.73 sq M.predicted MDRD (S/P/Bld) [Vol rate/Area] mL/min/{1.73_m2} Normal >=60 [facility] Comment on above: Result Comment: [facility] Laboratories have implemented the eGFR [...] years Performed By: #### C BC #### [place] [address] C Bldon 03-07-2025 C Bld -- - Final No growth at 5 days. Normal [facility] Comment on above: Performed By: #### B LD ####[place] [id number] Performed By: #### C BC #### [place] [address] CBC w/ Diffon 03-07-2025 Erythrocyte distribution width (RBC) [Ratio] 13.8 % Normal 11.6-14.8 [facility] Comment on above: Performed By: #### T SH #### [place] [id number] Hematocrit (Bld) [Volume fraction] 33.4 % Low 41.0-53.0 [facility] Comment on above: Performed By: #### T SH #### [place] [id number] Hemoglobin (Bld) [Mass/Vol] 11.7 g/dL Low 13.5-17.5 [facility] Comment on above: Performed By: #### T SH #### [address] [address] MCH (RBC) [Entitic mass] 32.0 pg Normal 27.0-35.0 [facility] Comment on above: Performed By: #### T SH #### [address] [address] MCHC 35.2 % Normal 31.0-37.0 [facility] Comment on above: Performed By: #### T SH #### [address] [address] MCV (RBC) [Entitic vol] 90.9 fL Normal 80.0-100.0 B [facility] Comment on above: Performed By: #### T SH #### [address] [address] Platelet 324 x10*3/mcL Normal 150-450 [facility] Comment on above: Performed By: #### T SH #### [address] [address] Platelet mean volume (Bld) [Entitic vol] 7.8 fL Normal 6.7-10.6 [facility] Comment on above: Performed By: #### T SH #### [address] [address] RBC 3.67 x10*6/mcL Low 4.30-5.80 [facility] Comment on above: Performed By: #### T SH #### [address] [address] WBC 9.0 x10*3/mcL Normal 4.5-11.0 [facility] Comment on above: Performed By: #### T SH #### [address] [address] CMPon 03-07-2025 Albumin [Mass/Vol] 3.0 g/dL Low 3.2-4.9 [facility] Comment on above: Performed By: #### C OMP ####[address] [address] Albumin/Globulin [Mass ratio] 0.9 {ratio} Low 1.1-2.2 [facility] Comment on above: Performed By: #### C OMP ####[address] [address] Alk Phos 97 IU/L High 32-91 [facility] Comment on above: Performed By: #### C OMP ####[address] [address] ALT [Catalytic activity/Vol] 34 U/L Normal 17-63 [facility] Comment on above: Performed By: #### C OMP ####[address] [address] Anion gap [Moles/Vol] 9 mmol/L Normal 4-12 [facility] Comment on above: Performed By: #### C OMP ####[address] [address] AST [Catalytic activity/Vol] 30 U/L Normal 15-41 [facility] Comment on above: Performed By: #### C OMP ####[address] [address] Bili Total 0.8 mg/dL Normal 0.3-1.2 [facility] Comment on above: Performed By: #### C OMP ####[address] [address] BUN Crea Ratio 32.4 ratio High 10.0-20.0 [facility] Comment on above: Performed By: #### C OMP ####[address] [address] Calcium [Mass/Vol] 8.7 mg/dL Normal 8.6-10.3 [facility] Comment on above: Performed By: #### C OMP ####[address] [address] Chloride [Moles/Vol] 94 mmol/L Low 98-110 [facility] [facility] Comment on above: Performed By: #### C OMP ####[address] [address] CO2 [Moles/Vol] 27 mmol/L Normal 22-32 [facility] Comment on above: Performed By: #### C OMP ####[address] [address] Creatinine [Mass/Vol] 0.71 mg/dL Normal 0.61-1.24 [facility] Comment on above: Performed By: #### C OMP ####[address] [address] Glucose [Mass/Vol] 121 mg/dL High 70-99 [facility] Comment on above: Performed By: #### C OMP ####[address] [address] Potassium [Moles/Vol] 3.0 mmol/L Low 3.4-4.8 [facility] Comment on above: Performed By: #### C OMP ####[address] [address] Protein [Mass/Vol] 6.2 g/dL Low 6.5-8.1 [facility] Comment on above: Performed By: #### C OMP ####[address] [address] Sodium [Moles/Vol] 130 mmol/L Low 133-142 [facility] Comment on above: Performed By: #### C OMP ####[address] [address] Urea nitrogen [Mass/Vol] 23 mg/dL Normal 8-26 [facility] Comment on above: Performed By: #### C OMP ####[address] [address] Diff Autoon 03-07-2025 Baso Absolute 0.0 x10*3/mcL Normal 0.0-0.2 [facility] Comment on above: Performed By: #### C BC #### [address] [place] [address] Basophils/100 WBC (Bld) 0.5 % Normal 0.0-1.2 [facility] Comment on above: Performed By: #### C BC #### [address] [address] Eos Absolute 0.3 x10*3/mcL Normal 0.0-0.4 [facility] Comment on above: Performed By: #### C BC #### [address] [address] Eosinophils/100 WBC (Bld) 3.1 % Normal 0.0-6.1 [facility] Comment on above: Performed By: #### C BC #### [address] [address] Lymph Absolute 1.0 x10*3/mcL Normal 1.0-4.8 [facility] Comment on above: Performed By: #### C BC #### [address] [address] Lymphocytes/100 WBC (Bld) 10.9 % Low 27.2-40.8 [facility] Comment on above: Performed By: #### C BC #### [address] [address] [place] Absolute 1.6 x10*3/mcL High 0.3-1.1 [facility] Comment on above: Performed By: #### C BC #### [address] [address] Monocytes/100 WBC (Bld) 17.2 % High 4.7-13.9 [facility] Comment on above: Performed By: #### C BC #### [address] [address] Neutro Absolute 6.2 x10*3/mcL Normal 1.8-7.7 [facility] Comment on above: Performed By: #### C BC #### [address] [address] Neutro Auto 68.3 % Normal 47.2-70.8 [facility] Comment on above: Performed By: #### C BC #### [address] [address] Diff Nadia 03-07-2025 Band form neutrophils/100 WBC (Bld) 2 % Normal 0-5 [facility] Comment on above: Performed By: #### . Manual Diff ####[address] [address] Basophils/100 WBC (Bld) 0 % Normal 0-3 [facility] Comment on above: Performed By: #### . Manual Diff ####[address] [address] Eosinophils/100 WBC (Bld) 3 % Normal 0-7 [facility] Comment on above: Performed By: #### . Manual Diff ####[address] [address] Lymphocytes/100 WBC (Bld) 13 % Low 14-42 [facility] Comment on above: Performed By: #### . Manual Diff ####[address] [address] Monocytes/100 WBC (Bld) 4 % Normal 1-11 [facility] Comment on above: Performed By: #### . Manual Diff ####[address] [address] Myelo Man 1 % High 0-0 [facility] Comment on above: Performed By: #### . Manual Diff ####[address] [address] Platelet estimate Adequate Normal [facility] Comment on above: Performed By: #### . Manual Diff ####[address] [address] RBC morphology finding Nom (Bld) Normal Normal [facility] Comment on above: Performed By: #### . Manual Diff ####[address] [address] React Lymph Man 4 % Normal 0-5 [facility] Comment on above: Performed By: #### . Manual Diff ####[address] [place] [address] Segs Man 73 % Normal 49-79 [facility] Comment on above: Performed By: #### . Manual Diff ####[address] [place] [address] Orthopedic Progress Noteon 0 03-07-2025 Orthopedic Progress [...] Daily heparin, 5000 units= 1 mL, Subcutaneous, [id number]-Akwgolxr Times hydroCHLOROthiazide, 25 mg, Oral, Daily Klor-Con [...] HS (at bedtime) Tylenol, 650 mg, Oral, j1mr-Gwielcea Times, PRN Zofran, 4 mg= 2 mL, [...] SNF once medically stable Electronically signed by Kirk Weber PA-C 03/07/25 10:17 EDT Normal [facility] Progress Note-Nurseon 2024 Progress Note-Nurse Nurse notified provider that patient is lethargic this morning, did attempt to give PO water, patient not able to tolerate, notified that Rn did not feel comfortable to administer PO medications, requested provider to review meds and adjust to IV as appropriate. Electronically signed by Susanne Sainz 03/07/25 10:10 EDT Normal [facility] SPEPon 03-07-2025 Albumin/Globulin [Mass ratio] 1.4 {ratio} Normal 1.1-2.2 [facility] Comment on above: Performed By: #### C BC #### [address] [address] Protein Electrophoresis Interpretation Normal [facility] Comment on above: Result Comment: Alexandra pheral blood smear findings: Hypogammaglobulinemia. There is no abnormal protein identified in the serum. Authenticated by: Zaina Ramesh M.D. Date/Time: 03/07/2025 11:17:21 EDT Performed By: #### C BC #### [place] [address] .UA Microscp Aon 03-06-2025 UA Bacteria Present Abnormal Absent [facility] Comment on above: Performed By: #### C [id number] #### [place] [address] UA CA Phosphate Cryst Present Abnormal Absent [facility] Comment on above: Performed By: #### C [id number] #### [address] [address] UA Mucus Present Normal Absent [facility] Comment on above: Performed By: #### C [id number] #### [id number] UA RBC Quant 4 /HPF Normal 0-5 [facility] Comment on above: Performed By: #### C [id number] #### [id number] UA Squepi Cells Quant <1 Normal 0-29 [facility] Comment on above: Performed By: #### C [id number] #### [id number] UA WBC Quant 51 /HPF High 0-5 [facility] Comment on above: Performed By: #### C [id number] #### [id number] .eGFRon 03-06-2025 GFR/1.73 sq M.predicted MDRD (S/P/Bld) [Vol rate/Area] mL/min/{1.73_m2} Normal >=60 [facility] Comment on above: Result Comment: [facility] Laboratories have implemented the eGFR [...] years Performed By: #### C BC #### [address] [address] CMPon 03-06-2025 Albumin [Mass/Vol] 3.2 g/dL Normal 3.2-4.9 [facility] Comment on above: Performed By: #### T SH #### [address] [address] Albumin/Globulin [Mass ratio] 1.0 {ratio} Low 1.1-2.2 [facility] Comment on above: Performed By: #### T SH #### [address] [address] Alk Phos 89 IU/L Normal 32-91 [facility] Comment on above: Performed By: #### T SH #### [address] [address] ALT [Catalytic activity/Vol] 28 U/L Normal 17-63 [facility] Comment on above: Performed By: #### T SH #### [address] [address] Anion gap [Moles/Vol] 8 mmol/L Normal 4-12 [facility] Comment on above: Performed By: #### T SH #### [address] [place] [address] AST [Catalytic activity/Vol] 27 U/L Normal 15-41 [facility] Comment on above: Performed By: #### T SH #### [address] [address] Bili Total 0.7 mg/dL Normal 0.3-1.2 [facility] Comment on above: Performed By: #### T SH #### [address] [address] BUN Crea Ratio 34.1 ratio High 10.0-20.0 [facility] Comment on above: Performed By: #### T SH #### [address] [address] Calcium [Mass/Vol] 8.9 mg/dL Normal 8.6-10.3 [facility] Comment on above: Performed By: #### T SH #### [address] [place] [address] Chloride [Moles/Vol] 97 mmol/L Low 98-110 [facility] Comment on above: Performed By: #### T SH #### [address] [place] [address] CO2 [Moles/Vol] 25 mmol/L Normal 22-32 [facility] Comment on above: Performed By: #### T SH #### [address] [place] [address] Creatinine [Mass/Vol] 0.91 mg/dL Normal 0.61-1.24 [facility] Comment on above: Performed By: #### T SH #### [address] [place] [address] Glucose [Mass/Vol] 144 mg/dL High 70-99 [facility] Comment on above: Performed By: #### T SH #### [address] [address] Potassium [Moles/Vol] 3.2 mmol/L Low 3.4-4.8 [facility] Comment on above: Performed By: #### T SH #### [facility] [address] [place] [address] Protein [Mass/Vol] 6.3 g/dL Low 6.5-8.1 [facility] Comment on above: Performed By: #### T SH #### [facility] [address] [place] [address] Sodium [Moles/Vol] 130 mmol/L Low 133-142 [facility] Comment on above: Performed By: #### T SH #### [address] [place] [address] Urea nitrogen [Mass/Vol] 31 mg/dL High 8-26 [facility] Comment on above: Performed By: #### T SH #### [address] [address] Orthopedic Progress Noteon 0 03-06-2025 Orthopedic Progress [...] Daily heparin, 5000 units= 1 mL, Subcutaneous, c0dk-Duxmphpp Times hydroCHLOROthiazide, 25 mg, Oral, Daily Klor-Con M20, 20 mEq, Oral, Daily Lipitor, 40 mg, Oral, HS (at bedtime) losartan, 25 mg, Oral, Daily MiraLax, 17 g= 1 EA, Oral, Daily Multiple Vitamins oral tablet, 1 tabs, Oral, Daily Myrbetriq, 50 mg, Oral, Daily SEROquel, 25 mg, Oral, HS (at bedtime) thiamine, 100 mg= 1 mL, IV Push, Daily Tylenol, 650 mg, Oral, j5fl-Vubufkrf Times, PRN Zofran, 4 mg= 2 mL, [...] SNF once medically stable Electronically signed by Christian Rae PA-C 03/06/25 08:49 EDT Normal [facility] SPEPon 03-06-2025 Albumin Lvl 3.22 g/mL Normal 3.00-5.00 [facility] Comment on above: Performed By: #### C BC #### [address] [address] Alpha 1 Glob 0.21 g/dL Normal 0.13-0.33 [facility] Comment on above: Performed By: #### C BC #### [address] [address] Alpha 2 Glob 0.83 g/dL Normal 0.56-1.13 [facility] Comment on above: Performed By: #### C BC #### [id number] Beta Glob 0.74 g/dL Normal 0.60-1.25 [facility] Comment on above: Performed By: #### C BC #### [id number] Gamma Globulin 0.51 g/dL Low 0.53-1.48 [facility] Comment on above: Performed By: #### C BC #### [address] [address] UA w Culture if Indon 2024 Color (U) Yellow Normal Yellow [facility] Comment on above: Order Comment: If pa tient catheterized >2 days, discontinue current catheter, and insert new catheter prior to collection Performed By: #### U CI ####[id number] Ketones Ql (U) Negative Normal Negative [facility] Comment on above: Order Comment: If pa tient catheterized >2 days, discontinue current catheter, and insert new catheter prior to collection Performed By: #### U CI ####[address] [address] UA Blood Negative Normal Negative [facility] Comment on above: Order Comment: If pa tient catheterized >2 days, discontinue current catheter, and insert new catheter prior to collection Performed By: #### U CI ####[address] [address] UA Clarity Turbid Normal Clear [facility] Comment on above: Order Comment: If pa tient catheterized >2 days, discontinue current catheter, and insert new catheter prior to collection Performed By: #### U CI ####[address] [address] UA Glucose Normal Normal Negative [facility] Comment on above: Order Comment: If pa tient catheterized >2 days, discontinue current catheter, and insert new catheter prior to collection Performed By: #### U CI ####[place] [address] UA Leukocyte Esterase 500 Abnormal Negative [facility] Comment on above: Order Comment: If pa tient catheterized >2 days, discontinue current catheter, and insert new catheter prior to collection Performed By: #### U CI ####[place] [address] UA Nitrite 2+ Abnormal Negative [facility] Comment on above: Order Comment: If pa tient catheterized >2 days, discontinue current catheter, and insert new catheter prior to collection Performed By: #### U CI ####[place] [address] UA pH 8.0 Abnormal 4.5 - 7.8 [facility] Comment on above: Order Comment: If pa tient catheterized >2 days, discontinue current catheter, and insert new catheter prior to collection Performed By: #### U CI ####[place] [address] UA Protein 100 mg/dL Abnormal Negative [facility] Comment on above: Order Comment: If pa tient catheterized >2 days, discontinue current catheter, and insert new catheter prior to collection Performed By: #### U CI ####[place] [address] UA Source Catheter Normal [facility] Comment on above: Order Comment: If pa tient catheterized >2 days, discontinue current catheter, and insert new catheter prior to collection Performed By: #### U CI ####[place] [address] UA Spec Grav 1.025 Normal 1.003-1.035 [facility] Comment on above: Order Comment: If pa tient catheterized >2 days, discontinue current catheter, and insert new catheter prior to collection Performed By: #### U CI ####[place] [address] UA Urobilinogen Normal Normal 0.2 - 1.0 [facility] Comment on above: Order Comment: If pa tient catheterized >2 days, discontinue current catheter, and insert new catheter prior to collection Performed By: #### U CI ####[address] [address] Urobilinogen (U) [Mass/Vol] Negative Normal Negative [facility] Comment on above: Order Comment: If pa tient catheterized >2 days, discontinue current catheter, and insert new catheter prior to collection Performed By: #### U CI ####[address] [address] VL Extremity Venous Duplex L ower Bilon 03-06-2025 VL Extremity Venous Duplex Lower Mohinder [...] Donna JENNINGS on 6th floor at 08:00. Despatch Clerk: Jaylene Henriquez T Radiologist Report Procedure: Bilateral lower extremity venous [...] Electronically Signed in Other Vendor System) Normal [facility] .eGFRon 03-05-2025 GFR/1.73 sq M.predicted MDRD (S/P/Bld) [Vol rate/Area] mL/min/{1.73_m2} Normal >=60 [facility] Comment on above: Result Comment: [facility] Laboratories have implemented the eGFR [...] years Performed By: #### C BC #### [facility] [address] [place] [id number] Ammoniaon 03-05-2025 Ammonia (P) [Moles/Vol] 24 umol/L Normal 9-35 [facility] Comment on above: Performed By: #### T SH #### [address] [address] Basic Metabolic Profileon Anion gap [Moles/Vol] 9 mmol/L Normal 4-12 [facility] Comment on above: Performed By: #### . Manual Diff #### [address] [address] Calcium [Mass/Vol] 9.0 mg/dL Normal 8.5-10.3 [facility] Comment on above: Performed By: #### . Manual Diff #### [address] [address] Chloride [Moles/Vol] 97 mmol/L Low 98-110 [facility] Comment on above: Performed By: #### . Manual Diff #### [address] [address] CO2 [Moles/Vol] 27 mmol/L Normal 22-32 [facility] Comment on above: Performed By: #### . Manual Diff #### [address] [address] Creatinine [Mass/Vol] 0.77 mg/dL Normal 0.61-1.24 [facility] Comment on above: Performed By: #### . Manual Diff #### [address] [address] Glucose [Mass/Vol] 138 mg/dL High 70-99 [facility] Comment on above: Performed By: #### . Manual Diff #### [address] [address] Potassium [Moles/Vol] 3.6 mmol/L Normal 3.4-4.8 [facility] Comment on above: Performed By: #### . Manual Diff #### [address] [address] Sodium [Moles/Vol] 133 mmol/L Normal 133-142 [facility] Comment on above: Performed By: #### . Manual Diff #### [address] [address] Urea nitrogen [Mass/Vol] 26 mg/dL Normal 8-26 [facility] Comment on above: Performed By: #### . Manual Diff #### [address] [address] Urea nitrogen/Creatinine [Mass ratio] 33.8 mg/mg High 10.0-20.0 [facility] Comment on above: Performed By: #### . Manual Diff #### [address] [address] CBC w/ Diffon 03-05-2025 Erythrocyte distribution width (RBC) [Ratio] 13.6 % Normal 11.6-14.8 [facility] Comment on above: Performed By: #### C BC ####[address] [address] Hematocrit (Bld) [Volume fraction] 33.4 % Low 41.0-53.0 [facility] Comment on above: Performed By: #### C BC ####[address] [address] Hemoglobin (Bld) [Mass/Vol] 11.0 g/dL Low 13.5-17.5 [facility] Comment on above: Performed By: #### C BC ####[address] [address] MCH (RBC) [Entitic mass] 30.6 pg Normal 27.0-35.0 [facility] Comment on above: Performed By: #### C BC ####[address] [address] MCHC 32.8 % Normal 31.0-37.0 [facility] Comment on above: Performed By: #### C BC ####[address] [address] MCV (RBC) [Entitic vol] 93.1 fL Normal 80.0-100.0 [facility] Comment on above: Performed By: #### C BC ####[address] [address] Platelet 293 x10*3/mcL Normal 150-450 [facility] Comment on above: Performed By: #### C BC ####[address] [address] Platelet mean volume (Bld) [Entitic vol] 8.2 fL Normal 6.7-10.6 [facility] Comment on above: Performed By: #### C BC ####[address] [address] RBC 3.59 x10*6/mcL Low 4.30-5.80 [facility] Comment on above: Performed By: #### C BC ####[id number] WBC 17.2 x10*3/mcL High 4.5-11.0 [facility] Comment on above: Performed By: #### C BC ####[id number] Diff Autoon 03-05-2025 Baso Absolute 0.0 x10*3/mcL Normal 0.0-0.2 [facility] Comment on above: Performed By: #### . Automated Diff ####[address] [address] Basophils/100 WBC (Bld) 0.2 % Normal 0.0-1.2 [facility] Comment on above: Performed By: #### . Automated Diff ####[address] [address] Eos Absolute 0.1 x10*3/mcL Normal 0.0-0.4 [facility] Comment on above: Performed By: #### . Automated Diff ####[address] [address] Eosinophils/100 WBC (Bld) 0.3 % Normal 0.0-6.1 [facility] Comment on above: Performed By: #### . Automated Diff ####[id number] Lymph Absolute 0.8 x10*3/mcL Low 1.0-4.8 [facility] Comment on above: Performed By: #### . Automated Diff ####[address] [address] Lymphocytes/100 WBC (Bld) 4.5 % Low 27.2-40.8 [facility] Comment on above: Performed By: #### . Automated Diff ####[address] [address] [place] Absolute 1.5 x10*3/mcL High 0.3-1.1 [facility] Comment on above: Performed By: #### . Automated Diff ####[address] [address] Monocytes/100 WBC (Bld) 8.9 % Normal 4.7-13.9 [facility] Comment on above: Performed By: #### . Automated Diff ####[address] [address] Neutro Absolute 14.8 x10*3/mcL High 1.8-7.7 [facility] Comment on above: Performed By: #### . Automated Diff ####[address] [address] Neutro Auto 86.1 % High 47.2-70.8 [facility] Comment on above: Performed By: #### . Automated Diff ####[address] [address] Diff [facility] 03-05-2025 Band form neutrophils/100 WBC (Bld) 0 % Normal 0-5 [facility] Comment on above: Performed By: #### . Manual Diff #### [address] [address] Basophils/100 WBC (Bld) 0 % Normal 0-3 [facility] Comment on above: Performed By: #### . Manual Diff #### [address] [address] Eosinophils/100 WBC (Bld) 0 % Normal 0-7 [facility] Comment on above: Performed By: #### . Manual Diff #### [address] [address] Lymphocytes/100 WBC (Bld) 13 % Low 14-42 [facility] Comment on above: Performed By: #### . Manual Diff #### [address] [address] [place] 1 % Normal 0-1 [facility] Comment on above: Performed By: #### . Manual Diff #### [address] [address] Monocytes/100 WBC (Bld) 3 % Normal 1-11 [facility] Comment on above: Performed By: #### . Manual Diff #### [address] [address] Platelet estimate Adequate Normal [facility] Comment on above: Performed By: #### . Manual Diff #### [address] [address] RBC morphology finding Nom (Bld) Normal Normal [facility] Comment on above: Performed By: #### . Manual Diff #### [address] [address] Segs Man 83 % High 49-79 [facility] Comment on above: Performed By: #### . Manual Diff #### [address] [address] MRI Brain w/o Contraston MRI Brain w/o Contrast EXAM: MRI Brain w /o Contrast HISTORY: Headache, COMPARISON: CT and MRI [...] Electronically Signed in Other Vendor System) Normal [facility] Orthopedic Progress Noteon 0 03-05-2025 Orthopedic Progress [...] Daily heparin, 5000 units= 1 mL, Subcutaneous, k5mv-Mdfxgiql Times hydroCHLOROthiazide, 25 mg, Oral, Daily Klor-Con M20, 20 mEq, Oral, Daily Lipitor, 40 mg, Oral, HS (at bedtime) losartan, 25 mg, Oral, Daily MiraLax, 17 g= 1 EA, Oral, Daily Multiple Vitamins oral tablet, 1 tabs, Oral, Daily Myrbetriq, 50 mg, Oral, Daily SEROquel, 25 mg, Oral, HS (at bedtime) thiamine, 100 mg= 1 mL, IV Push, Daily Tylenol, 650 mg, Oral, [id number]-[id number] Times, PRN Zofran, 4 mg= 2 mL, [...] SNF once medically stable Electronically signed by Christian Rae PA-C 03/05/25 06:31 EDT Normal [facility] SPEPon 03-05-2025 Protein [Mass/Vol] 5.5 g/dL Low 6.5-8.1 [facility] Comment on above: Performed By: #### C #### [facility] [address] [place] [address] XR Chest 1 Viewon 03-05-2025 XR Chest [...] Electronically Signed in Other Vendor System) Normal [facility] .eGFRon 03-04-2025 GFR/1.73 sq M.predicted MDRD (S/P/Bld) [Vol rate/Area] mL/min/{1.73_m2} Normal >=60 [facility] Comment on above: Result Comment: [facility] Laboratories have implemented the eGFR [...] = years Performed By: #### E GFR ####[address] [place] [address] Basic Metabolic Profileon Anion gap [Moles/Vol] 7 mmol/L Normal 4-12 [facility] Comment on above: Performed By: #### T SH #### [address] [address] Calcium [Mass/Vol] 9.0 mg/dL Normal 8.5-10.3 [facility] Comment on above: Performed By: #### T SH #### [address] [address] Chloride [Moles/Vol] 100 mmol/L Normal 98-110 [facility] Comment on above: Performed By: #### T SH #### [address] [place] [address] CO2 [Moles/Vol] 25 mmol/L Normal 22-32 [facility] Comment on above: Performed By: #### T SH #### [address] [address] Creatinine [Mass/Vol] 0.90 mg/dL Normal 0.61-1.24 [facility] Comment on above: Performed By: #### T SH #### [address] [place] [address] Glucose [Mass/Vol] 124 mg/dL High 70-99 [facility] Comment on above: Performed By: #### T SH #### [address] [place] [address] Potassium [Moles/Vol] 4.2 mmol/L Normal 3.4-4.8 [facility] Comment on above: Performed By: #### T SH #### [address] [address] Sodium [Moles/Vol] 132 mmol/L Low 133-142 [facility] Comment on above: Performed By: #### T SH #### [address] [address] Urea nitrogen [Mass/Vol] 23 mg/dL Normal 8-26 [facility] Comment on above: Performed By: #### T SH #### [address] [address] Urea nitrogen/Creatinine [Mass ratio] 25.6 mg/mg High 10.0-20.0 [facility] Comment on above: Performed By: #### T SH #### [address] [address] CBC w/ Diffon 03-04-2025 Erythrocyte distribution width (RBC) [Ratio] 13.1 % Normal 11.6-14.8 [facility] Comment on above: Performed By: #### C BC #### [address] [address] Hematocrit (Bld) [Volume fraction] 34.8 % Low 41.0-53.0 [facility] Comment on above: Performed By: #### C BC #### [address] [address] Hemoglobin (Bld) [Mass/Vol] 11.8 g/dL Low 13.5-17.5 [facility] Comment on above: Performed By: #### C BC #### [address] [address] MCH (RBC) [Entitic mass] 31.6 pg Normal 27.0-35.0 [facility] Comment on above: Performed By: #### C BC #### [address] [address] MCHC 33.8 % Normal 31.0-37.0 [facility] Comment on above: Performed By: #### C BC #### [address] [address] MCV (RBC) [Entitic vol] 93.2 fL Normal 80.0-100.0 [facility] Comment on above: Performed By: #### C BC #### [facility] [address] [place] [address] Platelet 273 x10*3/mcL Normal 150-450 [facility] Comment on above: Performed By: #### C BC #### [id number] [place] [address] Platelet mean volume (Bld) [Entitic vol] 8.2 fL Normal 6.7-10.6 [facility] Comment on above: Performed By: #### C BC #### [address] [address] RBC 3.73 x10*6/mcL Low 4.30-5.80 [facility] Comment on above: Performed By: #### C BC #### [address] [address] WBC 16.3 x10*3/mcL High 4.5-11.0 [facility] Comment on above: Performed By: #### C BC #### [address] [address] Consultation Note - Generico n 03-04-2025 Consultation [...] head and neck, and UA ALL unremarkable. ------ Patient safe for Med-Surg floors. Monitor vitals [...] PT/OT on board to evaluate when appropriate janitorial services supervisor on board for discharge planning when appropriate [...] to Neurology, 03/04/25 11:57:00 EDT, Sarthak WALTERS, [facility] delirium, No No Activity Instruction, 03/04/25 6:12:00 [...] data availab (more content not included)... Normal [facility] Diff Autoon 03-04-2025 Baso Absolute 0.1 x10*3/mcL Normal 0.0-0.2 [facility] Comment on above: Performed By: #### . Manual Diff #### [address] [address] Basophils/100 WBC (Bld) 0.4 % Normal 0.0-1.2 [facility] Comment on above: Performed By: #### . Manual Diff #### [address] [address] Eos Absolute 0.1 x10*3/mcL Normal 0.0-0.4 [facility] Comment on above: Performed By: #### . Manual Diff #### [address] [address] Eosinophils/100 WBC (Bld) 0.8 % Normal 0.0-6.1 [facility] Comment on above: Performed By: #### . Manual Diff #### [address] [address] Lymph Absolute 0.7 x10*3/mcL Low 1.0-4.8 [facility] Comment on above: Performed By: #### . Manual Diff #### [address] [address] Lymphocytes/100 WBC (Bld) 4.5 % Low 27.2-40.8 [facility] Comment on above: Performed By: #### . Manual Diff #### [address] [address] Radford Absolute 1.4 x10*3/mcL High 0.3-1.1 [facility] Comment on above: Performed By: #### . Manual Diff #### [address] [address] Monocytes/100 WBC (Bld) 8.7 % Normal 4.7-13.9 B [facility] Comment on above: Performed By: #### . Manual Diff #### [address] [address] Neutro Absolute 13.9 x10*3/mcL High 1.8-7.7 [facility] Comment on above: Performed By: #### . Manual Diff #### [id number] Neutro Auto 85.6 % High 47.2-70.8 [facility] Comment on above: Performed By: #### . Manual Diff #### [id number] Orthopedic Progress Noteon 0 03-04-2025 Orthopedic Progress [...] Daily heparin, 5000 units= 1 mL, Subcutaneous, [id number]-[id number] Times hydroCHLOROthiazide, 25 mg, Oral, Daily Klor-Con M20, 20 mEq, Oral, Daily Lipitor, 40 mg, Oral, HS (at bedtime) losartan, 25 mg, Oral, Daily MiraLax, 17 g= 1 EA, Oral, Daily Multiple Vitamins oral tablet, 1 tabs, Oral, Daily Myrbetriq, 50 mg, Oral, Daily SEROquel, 25 mg, Oral, HS (at bedtime) thiamine, 100 mg= 1 mL, IV Push, Daily Tylenol, 650 mg, Oral, [id number]-Htqdnvsy Times, PRN Zofran, 4 mg= 2 mL, [...] SNF once set up Electronically signed by Christian Rae PA-C 03/04/25 06:14 EDT Normal [facility] .eGFRon 03-03-2025 GFR/1.73 sq M.predicted MDRD (S/P/Bld) [Vol rate/Area] mL/min/{1.73_m2} Normal >=60 [facility] Comment on above: Result Comment: [facility] Laboratories have implemented the eGFR [...] Performed By: #### . Manual Diff #### [facility] [address] [place] [address] Basic Metabolic Profileon Anion gap [Moles/Vol] 7 mmol/L Normal 4-12 [facility] Comment on above: Performed By: #### C BC #### [facility] [address] [place] [address] Calcium [Mass/Vol] 8.8 mg/dL Normal 8.5-10.3 [facility] Comment on above: Performed By: #### C BC #### [address] [address] Chloride [Moles/Vol] 98 mmol/L Normal 98-110 [facility] Comment on above: Performed By: #### C BC #### [address] [address] CO2 [Moles/Vol] 27 mmol/L Normal 22-32 [facility] Comment on above: Performed By: #### C BC #### [address] [address] Creatinine [Mass/Vol] 0.74 mg/dL Normal 0.61-1.24 [facility] Comment on above: Performed By: #### C BC #### [address] [address] Glucose [Mass/Vol] 111 mg/dL High 70-99 [facility] Comment on above: Performed By: #### C BC #### [address] [address] Potassium [Moles/Vol] 3.3 mmol/L Low 3.4-4.8 [facility] Comment on above: Performed By: #### C BC #### [address] [address] Sodium [Moles/Vol] 132 mmol/L Low 133-142 [facility] Comment on above: Performed By: #### C BC #### [address] [address] Urea nitrogen [Mass/Vol] 18 mg/dL Normal 8-26 [facility] Comment on above: Performed By: #### C BC #### [address] [address] Urea nitrogen/Creatinine [Mass ratio] 24.3 mg/mg High 10.0-20.0 [facility] Comment on above: Performed By: #### C BC #### [address] [address] CBC w/ Diffon 03-03-2025 Erythrocyte distribution width (RBC) [Ratio] 13.2 % Normal 11.6-14.8 [facility] Comment on above: Performed By: #### C BC #### [address] [address] Hematocrit (Bld) [Volume fraction] 34.3 % Low 41.0-53.0 [facility] Comment on above: Performed By: #### C BC #### [address] [address] Hemoglobin (Bld) [Mass/Vol] 11.7 g/dL Low 13.5-17.5 [facility] Comment on above: Performed By: #### C BC #### [address] [address] MCH (RBC) [Entitic mass] 31.8 pg Normal 27.0-35.0 [facility] Comment on above: Performed By: #### C BC #### [address] [address] MCHC 34.2 % Normal 31.0-37.0 [facility] Comment on above: Performed By: #### C BC #### [address] [address] MCV (RBC) [Entitic vol] 93.1 fL Normal 80.0-100.0 [facility] Comment on above: Performed By: #### C BC #### [address] [address] Platelet 268 x10*3/mcL Normal 150-450 [facility] Comment on above: Performed By: #### C BC #### [address] [address] Platelet mean volume (Bld) [Entitic vol] 8.2 fL Normal 6.7-10.6 [facility] Comment on above: Performed By: #### C BC #### [address] [address] RBC 3.68 x10*6/mcL Low 4.30-5.80 [facility] Comment on above: Performed By: #### C BC #### [facility] [address] [place] [address] WBC 9.9 x10*3/mcL Normal 4.5-11.0 [facility] Comment on above: Performed By: #### C BC #### [facility] [address] [place] [address] Consultation Note - Generico n 03-03-2025 Consultation [...] PT/OT on board to evaluate when appropriate janitorial services supervisor on board for discharge planning when appropriate [...] - Orders heparin, 5,000 units, Subcutaneous, Injection, [id number]-[id number] Times, First Dose: 03/02/25 14:00:00 EDT, Dispense From Location: [address], 03/02/25 13:08:00 EDT potassium chloride, 40 mEq, Oral, Tab-ER, Once, First Dose: 03/03/25 16:00:00 EDT, Stop Date: 03/03/25 16:00:00 EDT, Dispense From Location: [address], 03/03/25 9:10:00 EDT Adjustment Inpatient, 02/27/25 8:00:00 EDT, Med-Surg, Medicine-General, 03/02/25 15:39:00 EDT, 03/02/25 15:39:00 EDT, pm_pso_link_preprocess ing PSO Change, 03/02/25 15:40:53 EDT Consult to Financial Agent, 03/02/25 13:07:00 EDT, Discharge planning, 03/02/25 13:07:00 [...] Phos 2.6 (more content not included)... Normal [facility] Diff Autoon 03-03-2025 Baso Absolute 0.1 x10*3/mcL Normal 0.0-0.2 [facility] Comment on above: Performed By: #### . Manual Diff #### [address] [address] Basophils/100 WBC (Bld) 0.8 % Normal 0.0-1.2 [facility] Comment on above: Performed By: #### . Manual Diff #### [address] [address] Eos Absolute 0.3 x10*3/mcL Normal 0.0-0.4 [facility] Comment on above: Performed By: #### . Manual Diff #### [address] [address] Eosinophils/100 WBC (Bld) 2.9 % Normal 0.0-6.1 [facility] Comment on above: Performed By: #### . Manual Diff #### [address] [address] Lymph Absolute 1.0 x10*3/mcL Normal 1.0-4.8 [facility] Comment on above: Performed By: #### . Manual Diff #### [address] [address] Lymphocytes/100 WBC (Bld) 10.1 % Low 27.2-40.8 [facility] Comment on above: Performed By: #### . Manual Diff #### [address] [address] Radford Absolute 1.1 x10*3/mcL Normal 0.3-1.1 [facility] Comment on above: Performed By: #### . Manual Diff #### [address] [address] Monocytes/100 WBC (Bld) 11.1 % Normal 4.7-13.9 [facility] Comment on above: Performed By: #### . Manual Diff #### [address] [address] Neutro Absolute 7.5 x10*3/mcL Normal 1.8-7.7 [facility] Comment on above: Performed By: #### . Manual Diff #### [facility] [address] [place] [address] Neutro Auto 75.1 % High 47.2-70.8 [facility] Comment on above: Performed By: #### . Manual Diff #### [facility] [address] [place] [address] Orthopedic Progress Noteon 0 03-03-2025 Orthopedic Progress [...] Daily heparin, 5000 units= 1 mL, Subcutaneous, m1bs-Envzutdy Times hydroCHLOROthiazide, 25 mg, Oral, Daily Klor-Con M20, 20 mEq, Oral, Daily Lipitor, 40 mg, Oral, HS (at bedtime) losartan, 25 mg, Oral, Daily MiraLax, 17 g= 1 EA, Oral, Daily Multiple Vitamins oral tablet, 1 tabs, Oral, Daily Myrbetriq, 50 mg, Oral, Daily SEROquel, 25 mg, Oral, HS (at bedtime) thiamine, 100 mg= 1 mL, IV Push, Daily Tylenol, 650 mg, Oral, [id number]-Qvtnzqos Times, PRN Zofran, 4 mg= 2 mL, [...] SNF once set up Electronically signed by Christian Rae PA-C 03/03/25 06:58 EDT Normal [facility] .UA Microscp Aon 03-02-2025 UA Hyline Cast Qual 0-2 Normal Negative [facility] Comment on above: Performed By: #### C BC #### [facility] [address] [place] [address] UA Mucus Present Normal Absent [facility] Comment on above: Performed By: #### C BC #### [facility] [address] [place] [address] UA RBC Quant 1 /HPF Normal 0-5 [facility] Comment on above: Performed By: #### C BC #### [facility] [address] [place] [address] UA WBC Quant 0 /HPF Normal 0-5 [facility] Comment on above: Performed By: #### C BC #### [id number] [place] [address] .eGFRon 03-02-2025 GFR/1.73 sq M.predicted MDRD (S/P/Bld) [Vol rate/Area] mL/min/{1.73_m2} Normal >=60 [facility] Comment on above: Result Comment: [facility] Laboratories have implemented the eGFR [...] = years Performed By: #### E GFR ####[facility] [place] [address] Ammoniaon 03-02-2025 Ammonia (P) [Moles/Vol] 18 umol/L Normal 9-35 B [facility] Comment on above: Performed By: #### T SH #### [address] [address] B12/Folate Lvlon 03-02-2025 Cobalamin (Vitamin B12) [Mass/Vol] 1036 pg/mL High 180-914 [facility] Comment on above: Performed By: #### . Manual Diff #### [address] [address] Folate Lvl 10.2 ng/mL Normal >=5.9 [facility] Comment on above: Result Comment: A O Technical Consultation has determined that deficient Folate concentrations are considered to be less than 4 ng/mL. Performed By: #### . Manual Diff #### [address] [address] Basic Metabolic Profileon Anion gap [Moles/Vol] 7 mmol/L Normal 4-12 [facility] Comment on above: Performed By: #### C [id number] #### [address] [address] Calcium [Mass/Vol] 8.8 mg/dL Normal 8.5-10.3 [facility] Comment on above: Performed By: #### C [id number] #### [address] [address] Chloride [Moles/Vol] 98 mmol/L Normal 98-110 [facility] Comment on above: Performed By: #### C [id number] #### [address] [address] CO2 [Moles/Vol] 27 mmol/L Normal 22-32 [facility] Comment on above: Performed By: #### C [id number] #### [address] [address] Creatinine [Mass/Vol] 0.65 mg/dL Normal 0.61-1.24 [facility] Comment on above: Performed By: #### C [id number] #### [address] [address] Glucose [Mass/Vol] 113 mg/dL High 70-99 [facility] Comment on above: Performed By: #### C [id number] #### [address] [address] Potassium [Moles/Vol] 3.0 mmol/L Low 3.4-4.8 [facility] Comment on above: Performed By: #### C [id number] #### [address] [address] Sodium [Moles/Vol] 132 mmol/L Low 133-142 [facility] Comment on above: Performed By: #### C [id number] #### [address] [address] Urea nitrogen [Mass/Vol] 13 mg/dL Normal 8-26 [facility] Comment on above: Performed By: #### C [id number] #### [address] [address] Urea nitrogen/Creatinine [Mass ratio] 20.0 mg/mg Normal 10.0-20.0 [facility] Comment on above: Performed By: #### C [id number] #### [address] [address] CBC w/ Diffon 03-02-2025 Erythrocyte distribution width (RBC) [Ratio] 13.4 % Normal 11.6-14.8 [facility] Comment on above: Performed By: #### T SH #### [address] [address] Hematocrit (Bld) [Volume fraction] 32.7 % Low 41.0-53.0 [facility] Comment on above: Performed By: #### T SH #### [address] [address] Hemoglobin (Bld) [Mass/Vol] 11.5 g/dL Low 13.5-17.5 [facility] Comment on above: Performed By: #### T SH #### [address] [address] MCH (RBC) [Entitic mass] 32.6 pg Normal 27.0-35.0 [facility] Comment on above: Performed By: #### T SH #### [address] [address] MCHC 35.2 % Normal 31.0-37.0 [facility] Comment on above: Performed By: #### T SH #### [address] [address] MCV (RBC) [Entitic vol] 92.5 fL Normal 80.0-100.0 B [facility] Comment on above: Performed By: #### T SH #### [address] [address] Platelet 240 x10*3/mcL Normal 150-450 [facility] Comment on above: Performed By: #### T SH #### [address] [address] Platelet mean volume (Bld) [Entitic vol] 8.4 fL Normal 6.7-10.6 [facility] Comment on above: Performed By: #### T SH #### [address] [address] RBC 3.54 x10*6/mcL Low 4.30-5.80 [facility] Comment on above: Performed By: #### T SH #### [address] [address] WBC 8.5 x10*3/mcL Normal 4.5-11.0 [facility] Comment on above: Performed By: #### T SH #### [address] [address] CRPon 03-02-2025 CRP 2.83 mg/dL High 0.00-0.75 [facility] Comment on above: Result Comment: CRP measurement is useful for assessment of non-specific INFLAMMATORY RESPONSE to infection or injury AND is a sensitive MARKER of ACUTE INFLAMMATION including CARDIAC RISK ASSESSMENT. CARDIAC patients with elevated CRP are POTENTIALLY at a HIGHER RISK OF FUTURE CARDIAC EVENTS. Performed By: #### C [id number] #### [facility] [address] [place] [address] CT Brain w/o Contraston 02-04 CT Brain w/o Contrast NONCONTRAST HEAD C T COMPARISON: Head CT 05/02/2024. CLINICAL HISTORY: Hallucinations. [...] abnormality. Brain atrophy unchanged. Radiation Dose Estimate: CTDI(mGy):0.673362 / / / kVp:120.605733 / mAs:0.404124 / / / DLP(mGy-cm):4.071466Gb dy Part: Head CTDI(mGy):47.592121 / / / kVp:120.678911 / mAs:194.482684 / / / DLP(mGy-cm):902.476017 Body Part: Head Final Dictated by: Neftali Feliciano MD Dictated DT/TM: 03.02.2025 8:23 am Signed by: Neftali Feliciano MD Signed (Electronic Signature): 03.02.2025 8:24 am (If Report Is Signed, Electronically Signed in Other Vendor System) Normal [facility] Consultation Note - Generico n 03-02-2025 Consultation [...] PT/OT on board to evaluate when appropriate janitorial services supervisor on board for discharge planning when appropriate [...] Dose: 03/02/25 9:00:00 EDT, Dispense From Location: [id number], 03/02/25 2:26:00 EDT heparin, 5,000 units, Subcutaneous, Injection, [id number] Times, First Dose: 03/02/25 14:00:00 EDT, 03/02/25 13:08:00 EDT multivitamin, 1 tabs, Oral, Tab, Daily, First Dose: 03/02/25 9:00:00 EDT, Dispense From Location: [address], 03/02/25 2:26:00 EDT potassium chloride, 40 mEq, Oral, Tab-ER, Once, First Dose: 03/02/25 12:00:00 EDT, Stop Date: 03/02/25 12:00:00 EDT, Dispense From Location: [address], 03/02/25 12:00:00 EDT QUEtiapine, 25 mg, Oral, Tab, HS (at bedtime), First Dose: 03/02/25 21:00:00 EDT, Dispense From Location: [address], 03/02/25 2:26:00 EDT thiamine, 100 mg, IV Push, Injection, Daily for 5 days, First Dose: 03/02/25 9:00:00 EDT, Stop Date: 03/07/25 8:59:00 EDT, Dispense From Location: [facility], 03/02/25 7:16:00 EDT EKG, 03/02/25 8:00:00 EDT, Routine, Other (please specify), AMS, 03/02/25 8:00:00 EDT Consult to Hospitalist, 03/02/25 0:10:00 EDT, Becky WALTERS, Denny R, Medical management, Yes Consult to Financial Agent, 03/02/25 13:07:00 EDT, Discharge planning, 03/02/25 13:07:00 [...] EDT, Stop date 03/02/25 11:00:00 EDT Clinical [place] Withdrawl Assessment, 03/02/25 2:26:00 EDT, q6hr, Q6h [...] 87 (Periphera (more content not included)... Normal [facility] Consultation Note - Generic Chief Complaint PT [...] w/o in AM Replete electrolytes as needed [facility] protocol for scoring, if ETOH abuse confirmed [...] Prior L4-S1 PSF done with Dr. Ang Ordoñez. He then had a HW removal and L3-4 decompression in [address] [place] [address] Larry. He then had a [...] pain Foot (more content not included)... Normal [facility] Diff Autoon 03-02-2025 Baso Absolute 0.1 x10*3/mcL Normal 0.0-0.2 [facility] Comment on above: Performed By: #### C BC #### [address] [place] [address] Basophils/100 WBC (Bld) 0.9 % Normal 0.0-1.2 [facility] Comment on above: Performed By: #### C BC #### [address] [place] [address] Eos Absolute 0.3 x10*3/mcL Normal 0.0-0.4 [facility] Comment on above: Performed By: #### C BC #### [address] [address] Eosinophils/100 WBC (Bld) 3.5 % Normal 0.0-6.1 [facility] Comment on above: Performed By: #### C BC #### [address] [address] Lymph Absolute 1.1 x10*3/mcL Normal 1.0-4.8 [facility] Comment on above: Performed By: #### C BC #### [address] [place] [address] Lymphocytes/100 WBC (Bld) 13.4 % Low 27.2-40.8 [facility] Comment on above: Performed By: #### C BC #### [address] [address] [place] Absolute 1.0 x10*3/mcL Normal 0.3-1.1 [facility] Comment on above: Performed By: #### C BC #### [address] [place] [address] Monocytes/100 WBC (Bld) 12.0 % Normal 4.7-13.9 [facility] Comment on above: Performed By: #### C BC #### [address] [place] [address] Neutro Absolute 6.0 x10*3/mcL Normal 1.8-7.7 [facility] Comment on above: Performed By: #### C BC #### [address] [place] [address] Neutro Auto 70.2 % Normal 47.2-70.8 [facility] Comment on above: Performed By: #### C BC #### [address] [place] [address] Diff Nadia 03-02-2025 Band form neutrophils/100 WBC (Bld) 0 % Normal 0-5 [facility] Comment on above: Performed By: #### C BC #### [address] [address] Basophils/100 WBC (Bld) 1 % Normal 0-3 B [facility] Comment on above: Performed By: #### C BC #### [address] [address] Eosinophils/100 WBC (Bld) 9 % High 0-7 [facility] Comment on above: Performed By: #### C BC #### [address] [address] Lymphocytes/100 WBC (Bld) 18 % Normal 14-42 [facility] Comment on above: Performed By: #### C BC #### [address] [address] Monocytes/100 WBC (Bld) 9 % Normal 1-11 B [facility] Comment on above: Performed By: #### C BC #### [address] [place] [address] Platelet estimate Adequate Normal [facility] Comment on above: Performed By: #### C BC #### [address] [address] RBC morphology finding Nom (Bld) Normal Normal [facility] Comment on above: Performed By: #### C BC #### [address] [address] Segs Man 63 % Normal 49-79 [facility] Comment on above: Performed By: #### C BC #### [address] [address] HSTI Randomon 03-02-2025 hs Troponin I 10 ng/L Normal 0-20 [facility] Comment on above: Performed By: #### C BC #### [address] [place] [address] Hep Func Panelon 03-02-2025 Albumin [Mass/Vol] 3.1 g/dL Low 3.2-4.9 [facility] Comment on above: Performed By: #### T SH #### [address] [place] [address] Alk Phos 70 IU/L Normal 32-91 [facility] Comment on above: Performed By: #### T SH #### [address] [place] [address] ALT [Catalytic activity/Vol] 18 U/L Normal 17-63 [facility] Comment on above: Performed By: #### T SH #### [address] [address] AST [Catalytic activity/Vol] 18 U/L Normal 15-41 [facility] Comment on above: Performed By: #### T SH #### [address] [place] [address] Bili Direct 0.2 mg/dL Normal 0.1-0.5 [facility] Comment on above: Performed By: #### T SH #### [address] [place] [address] Bili Indirect 0.6 mg/dL Normal 0.0-1.0 [facility] Comment on above: Performed By: #### T SH #### [address] [place] [address] Bili Total 0.8 mg/dL Normal 0.3-1.2 [facility] Comment on above: Performed By: #### T SH #### [address] [place] [address] Protein [Mass/Vol] 5.7 g/dL Low 6.5-8.1 [facility] Comment on above: Performed By: #### T SH #### [address] [place] [address] MRI Brain + MRA Head w/o Con arminon 03-02-2025 MRI Brain + MRA Head w/o [...] was performed without contrast utilizing axial 3-D ksvu-ib-zkkvhc imaging. Sagittal and coronal reformats and maximum [...] Electronically Signed in Other Vendor System) Normal [facility] Comment on above: Order Comment: Not a lert - needs screened by familyno phone numbers in chartNurse to call back 03/02 @ 2015 Magnesiumon 03-02-2025 Magnesium [Mass/Vol] 2.0 mg/dL Normal 1.7-2.4 [facility] Comment on above: Performed By: #### M G ####[place] [address] Orthopedic Progress Noteon 0 03-02-2025 Orthopedic Progress [...] mg, Oral, Daily Tylenol, 650 mg, Oral, [id number]-[id number] Times, PRN Zofran, 4 mg= 2 mL, [...] Discharge pending - SNF Electronically signed by Christian Rae PA-C 03/02/25 07:10 EDT Normal [facility] Phosphoruson 03-02-2025 Phosphate [Mass/Vol] 2.6 mg/dL Normal 2.5-4.6 [facility] Hospital Comment on above: Performed By: #### C #### [facility] [address] [place] [address] Progress Note-Nurseon 2024 Progress Note-Nurse This nurse notified by [facility] Kaelyn Martini that patient presented alert and [...] cultures, NIH Q4. CT scan ordered on sustainability coach, this nurse called down to get him in right away. This nurse also called to notify and have her answer questions for MRI. Electronically signed by Ja Egan 03/02/25 09:12 EDT Normal [facility] TSHon 03-02-2025 TSH Qn 1.31 m[IU]/L Normal 0.45-5.33 [facility] Comment on above: Result Comment: Refe rence Ranges for individuals from to 18 years of age were obtained from The [employer] Handbook (20 ed) published by [facility]. Reference Ranges for Females: Females, 1st Trimester 0.05 ? 3.7 uIU/mL Females, 2nd Trimester 0.31 ? 4.35 uIU/mL Females, 3rd Trimester 0.41 ? 5.18 uIU/mL Performed By: #### T SH #### [address] [address] UA w Culture if Indon 2024 Color (U) Light-Yellow Normal Yellow [facility] Comment on above: Performed By: #### C BC #### [address] [address] Ketones Ql (U) Negative Normal Negative [facility] Comment on above: Performed By: #### C BC #### [address] [address] UA Blood Negative Normal Negative [facility] Comment on above: Performed By: #### C BC #### [address] [address] UA Clarity Clear Normal Clear [facility] Comment on above: Performed By: #### C BC #### [address] [place] [address] UA Glucose Normal Normal Negative [facility] Comment on above: Performed By: #### C BC #### [address] [place] [address] UA Leukocyte Esterase Negative Normal Negative [facility] Comment on above: Performed By: #### C BC #### [address] [address] UA Nitrite Negative Normal Negative [facility] Comment on above: Performed By: #### C BC #### [address] [address] UA pH 6.5 Normal 4.5 - 7.8 [facility] Comment on above: Performed By: #### C BC #### [address] [address] UA Protein Negative Normal Negative [facility] Comment on above: Performed By: #### C BC #### [address] [place] [address] UA Source Clean Catch Normal [facility] Comment on above: Performed By: #### C BC #### [address] [place] [address] UA Spec Grav 1.014 Normal 1.003-1.035 [facility] Comment on above: Performed By: #### C BC #### [address] [address] UA Urobilinogen Normal Normal 0.2 - 1.0 [facility] Comment on above: Performed By: #### C BC #### [address] [address] Urobilinogen (U) [Mass/Vol] Negative Normal Negative [facility] Comment on above: Performed By: #### C BC #### [address] [place] [address] XR Chest 1 Viewon 03-02-2025 XR Chest [...] Electronically Signed in Other Vendor System) Normal [facility] .eGFRon 03-01-2025 GFR/1.73 sq M.predicted MDRD (S/P/Bld) [Vol rate/Area] mL/min/{1.73_m2} Normal >=60 [facility] Comment on above: Result Comment: [facility] Laboratories have implemented the eGFR [...] Performed By: #### . Manual Diff #### [facility] [address] [place] [address] Basic Metabolic Profileon Anion gap [Moles/Vol] 7 mmol/L Normal 4-12 [facility] Comment on above: Performed By: #### C [id number] #### [address] [address] Calcium [Mass/Vol] 8.9 mg/dL Normal 8.5-10.3 [facility] Comment on above: Performed By: #### C [id number] #### [address] [address] Chloride [Moles/Vol] 100 mmol/L Normal 98-110 [facility] Comment on above: Performed By: #### C [id number] #### [address] [address] CO2 [Moles/Vol] 28 mmol/L Normal 22-32 [facility] Comment on above: Performed By: #### C [id number] #### [address] [address] Creatinine [Mass/Vol] 0.60 mg/dL Low 0.61-1.24 [facility] Comment on above: Performed By: #### C [id number] #### [address] [address] Glucose [Mass/Vol] 118 mg/dL High 70-99 [facility] Comment on above: Performed By: #### C [id number] #### [address] [address] Potassium [Moles/Vol] 3.0 mmol/L Low 3.4-4.8 [facility] Comment on above: Performed By: #### C [id number] #### [address] [address] Sodium [Moles/Vol] 135 mmol/L Normal 133-142 [facility] Comment on above: Performed By: #### C [id number] #### [address] [address] Urea nitrogen [Mass/Vol] 11 mg/dL Normal 8-26 [facility] Comment on above: Performed By: #### C D:[id number] #### [address] [address] Urea nitrogen/Creatinine [Mass ratio] 18.3 mg/mg Normal 10.0-20.0 [facility] Comment on above: Performed By: #### C D:[id number] #### [address] [address] CBC w/ Diffon 03-01-2025 Erythrocyte distribution width (RBC) [Ratio] 13.4 % Normal 11.6-14.8 [facility] Comment on above: Performed By: #### C BC #### [address] [address] Hematocrit (Bld) [Volume fraction] 34.8 % Low 41.0-53.0 [facility] Comment on above: Performed By: #### C BC #### [address] [address] Hemoglobin (Bld) [Mass/Vol] 11.8 g/dL Low 13.5-17.5 [facility] Comment on above: Performed By: #### C BC #### [address] [address] MCH (RBC) [Entitic mass] 31.9 pg Normal 27.0-35.0 [facility] Comment on above: Performed By: #### C BC #### [address] [address] MCHC 33.9 % Normal 31.0-37.0 [facility] Comment on above: Performed By: #### C BC #### [address] [address] MCV (RBC) [Entitic vol] 94.1 fL Normal 80.0-100.0 [facility] Comment on above: Performed By: #### C BC #### [address] [address] Platelet 210 x10*3/mcL Normal 150-450 [facility] Comment on above: Performed By: #### C BC #### [address] [address] Platelet mean volume (Bld) [Entitic vol] 8.6 fL Normal 6.7-10.6 [facility] Comment on above: Performed By: #### C BC #### [address] [address] RBC 3.70 x10*6/mcL Low 4.30-5.80 [facility] Comment on above: Performed By: #### C BC #### [address] [address] WBC 9.3 x10*3/mcL Normal 4.5-11.0 [facility] Comment on above: Performed By: #### C BC #### [address] [address] Diff Autoon 03-01-2025 Baso Absolute 0.1 x10*3/mcL Normal 0.0-0.2 [facility] Comment on above: Performed By: #### C BC #### [address] [address] Basophils/100 WBC (Bld) 0.5 % Normal 0.0-1.2 [facility] Comment on above: Performed By: #### C BC #### [address] [address] Eos Absolute 0.3 x10*3/mcL Normal 0.0-0.4 [facility] Comment on above: Performed By: #### C BC #### [address] [address] Eosinophils/100 WBC (Bld) 3.3 % Normal 0.0-6.1 [facility] Comment on above: Performed By: #### C BC #### [address] [address] Lymph Absolute 1.2 x10*3/mcL Normal 1.0-4.8 [facility] Comment on above: Performed By: #### C BC #### [address] [address] Lymphocytes/100 WBC (Bld) 12.6 % Low 27.2-40.8 [facility] Comment on above: Performed By: #### C BC #### [address] [address] Radford Absolute 1.2 x10*3/mcL High 0.3-1.1 [facility] Comment on above: Performed By: #### C BC #### [address] [address] Monocytes/100 WBC (Bld) 12.4 % Normal 4.7-13.9 [facility] Comment on above: Performed By: #### C BC #### [address] [address] Neutro Absolute 6.6 x10*3/mcL Normal 1.8-7.7 [facility] Comment on above: Performed By: #### C BC #### [address] [address] Neutro Auto 71.2 % High 47.2-70.8 [facility] Comment on above: Performed By: #### C BC #### [address] [address] Diff Nadia 03-01-2025 Band form neutrophils/100 WBC (Bld) 1 % Normal 0-5 [facility] Comment on above: Performed By: #### C BC #### [address] [address] Basophils/100 WBC (Bld) 0 % Normal 0-3 [facility] Comment on above: Performed By: #### C BC #### [address] [address] Eosinophils/100 WBC (Bld) 0 % Normal 0-7 [facility] Comment on above: Performed By: #### C BC #### [address] [address] Hypochromasia Slight Normal [facility] Comment on above: Performed By: #### C BC #### [facility] [address] [place] [address] Lymphocytes/100 WBC (Bld) 8 % Low 14-42 [facility] Comment on above: Performed By: #### C BC #### [facility] [address] [place] [address] Monocytes/100 WBC (Bld) 5 % Normal 1-11 [facility] Comment on above: Performed By: #### C BC #### [facility] [address] [place] [address] Platelet estimate Adequate Normal [facility] Comment on above: Performed By: #### C BC #### [facility] [address] [place] [address] React Lymph Man 4 % Normal 0-5 [facility] Comment on above: Performed By: #### C BC #### [facility] [address] [place] [address] Segs Man 82 % High 49-79 [facility] Comment on above: Performed By: #### C BC #### [facility] [address] [place] [address] Orthopedic Progress Noteon 0 03-01-2025 Orthopedic Progress [...] Oral, q4hr, PRN Tylenol, 650 mg, Oral, [id number] Times, PRN Zofran, 4 mg= 2 mL, [...] Discharge pending - SNF Electronically signed by Christian Rae PA-C 03/01/25 14:44 EDT Normal [facility] Potassiumon 03-01-2025 Potassium [Moles/Vol] 3.4 mmol/L Normal 3.4-4.8 [facility] Comment on above: Performed By: #### C [id number] #### [place] [address] .eGFRon 02-28-2025 GFR/1.73 sq M.predicted MDRD (S/P/Bld) [Vol rate/Area] mL/min/{1.73_m2} Normal >=60 [facility] Comment on above: Result Comment: [facility] Laboratories have implemented the eGFR [...] Age = years Performed By: #### C [id number] #### [facility] [address] [place] [address] Basic Metabolic Profileon Anion gap [Moles/Vol] 6 mmol/L Normal 4-12 [facility] Comment on above: Performed By: #### C [id number] ####[address] [address] Calcium [Mass/Vol] 8.7 mg/dL Normal 8.5-10.3 [facility] Comment on above: Performed By: #### C D:[id number] ####[address] [place] [address] Chloride [Moles/Vol] 101 mmol/L Normal 98-110 [facility] Comment on above: Performed By: #### C D:[id number] ####[address] [address] CO2 [Moles/Vol] 28 mmol/L Normal 22-32 [facility] Comment on above: Performed By: #### C D:[id number] ####[address] [address] Creatinine [Mass/Vol] 0.63 mg/dL Normal 0.61-1.24 [facility] Comment on above: Performed By: #### C [id number] ####[address] [address] Glucose [Mass/Vol] 115 mg/dL High 70-99 [facility] Comment on above: Performed By: #### C [id number] ####[address] [address] Potassium [Moles/Vol] 3.3 mmol/L Low 3.4-4.8 [facility] Comment on above: Performed By: #### C D:[id number] ####[address] [address] Sodium [Moles/Vol] 135 mmol/L Normal 133-142 [facility] Comment on above: Performed By: #### C [id number] ####[address] [address] Urea nitrogen [Mass/Vol] 12 mg/dL Normal 8-26 [facility] Comment on above: Performed By: #### C D:[id number] ####[address] [address] Urea nitrogen/Creatinine [Mass ratio] 19.0 mg/mg Normal 10.0-20.0 [facility] Comment on above: Performed By: #### C D:[id number] ####[address] [address] CBC w/ Diffon 02-28-2025 Erythrocyte distribution width (RBC) [Ratio] 13.4 % Normal 11.6-14.8 [facility] Comment on above: Performed By: #### T SH #### [address] [address] Hematocrit (Bld) [Volume fraction] 32.5 % Low 41.0-53.0 [facility] Comment on above: Performed By: #### T SH #### [address] [address] Hemoglobin (Bld) [Mass/Vol] 11.4 g/dL Low 13.5-17.5 [facility] Comment on above: Performed By: #### T SH #### [address] [address] MCH (RBC) [Entitic mass] 32.9 pg Normal 27.0-35.0 [facility] Comment on above: Performed By: #### T SH #### [address] [address] MCHC 35.1 % Normal 31.0-37.0 [facility] Comment on above: Performed By: #### T SH #### [address] [address] MCV (RBC) [Entitic vol] 93.8 fL Normal 80.0-100.0 [facility] Comment on above: Performed By: #### T SH #### [address] [address] Platelet 181 x10*3/mcL Normal 150-450 [facility] Comment on above: Performed By: #### T SH #### [address] [address] Platelet mean volume (Bld) [Entitic vol] 8.6 fL Normal 6.7-10.6 [facility] Comment on above: Performed By: #### T SH #### [address] [address] RBC 3.46 x10*6/mcL Low 4.30-5.80 [facility] Comment on above: Performed By: #### T SH #### [address] [address] WBC 8.2 x10*3/mcL Normal 4.5-11.0 [facility] Comment on above: Performed By: #### T SH #### [address] [address] Diff Autoon 02-28-2025 Baso Absolute 0.0 x10*3/mcL Normal 0.0-0.2 [facility] Comment on above: Performed By: #### T SH #### [address] [address] Basophils/100 WBC (Bld) 0.4 % Normal 0.0-1.2 [facility] Comment on above: Performed By: #### T SH #### [address] [address] Eos Absolute 0.3 x10*3/mcL Normal 0.0-0.4 [facility] Comment on above: Performed By: #### T SH #### [address] [address] Eosinophils/100 WBC (Bld) 3.1 % Normal 0.0-6.1 [facility] Comment on above: Performed By: #### T SH #### [address] [address] Lymph Absolute 1.1 x10*3/mcL Normal 1.0-4.8 [facility] Comment on above: Performed By: #### T SH #### [address] [address] Lymphocytes/100 WBC (Bld) 12.9 % Low 27.2-40.8 [facility] Comment on above: Performed By: #### T SH #### [address] [address] Radford Absolute 0.9 x10*3/mcL Normal 0.3-1.1 [facility] Comment on above: Performed By: #### T SH #### [address] [address] Monocytes/100 WBC (Bld) 11.2 % Normal 4.7-13.9 [facility] Comment on above: Performed By: #### T SH #### [facility] [address] [place] [address] Neutro Absolute 5.9 x10*3/mcL Normal 1.8-7.7 [facility] Comment on above: Performed By: #### T SH #### [facility] [address] [place] [address] Neutro Auto 72.4 % High 47.2-70.8 [facility] Comment on above: Performed By: #### T SH #### [facility] [address] [place] [address] Orthopedic Progress Noteon 0 02-28-2025 Orthopedic Progress [...] Oral, q4hr, PRN Tylenol, 650 mg, Oral, [id number] Times, PRN Zofran, 4 mg= 2 mL, IV Push, q4hr, PRN Assessment/Plan POD#4 s/p L2-5 decompression and fusion with durotomy Plan: 1. Continue drains 2. Tylenol prn pain 3. Activity - as tolerated. PT/OT, back brace when ambulating. 4. AM labs, hgb stable 5. Bowel meds 6. Remove barker 7. Discharge pending - SNF Electronically signed by Kirk Weber PA-C 02/28/25 10:30 EDT Normal [facility] .eGFRon 02-27-2025 GFR/1.73 sq M.predicted MDRD (S/P/Bld) [Vol rate/Area] mL/min/{1.73_m2} Normal >=60 [facility] Comment on above: Result Comment: [facility] Laboratories have implemented the eGFR [...] Performed By: #### . Manual Diff #### [address] [address] Basic Metabolic Profileon Anion gap [Moles/Vol] 5 mmol/L Normal 4-12 [facility] Comment on above: Performed By: #### C BC #### [address] [address] Calcium [Mass/Vol] 8.5 mg/dL Normal 8.5-10.3 [facility] Comment on above: Performed By: #### C BC #### [address] [address] Chloride [Moles/Vol] 103 mmol/L Normal 98-110 [facility] Comment on above: Performed By: #### C BC #### [address] [address] CO2 [Moles/Vol] 27 mmol/L Normal 22-32 [facility] Comment on above: Performed By: #### C BC #### [address] [address] Creatinine [Mass/Vol] 0.56 mg/dL Low 0.61-1.24 [facility] Comment on above: Performed By: #### C BC #### [address] [address] Glucose [Mass/Vol] 116 mg/dL High 70-99 [facility] Comment on above: Performed By: #### C BC #### [address] [address] Potassium [Moles/Vol] 3.5 mmol/L Normal 3.4-4.8 [facility] Comment on above: Performed By: #### C BC #### [address] [address] Sodium [Moles/Vol] 135 mmol/L Normal 133-142 [facility] Comment on above: Performed By: #### C BC #### [address] [address] Urea nitrogen [Mass/Vol] 11 mg/dL Normal 8-26 [facility] Comment on above: Performed By: #### C BC #### [address] [address] Urea nitrogen/Creatinine [Mass ratio] 19.6 mg/mg Normal 10.0-20.0 [facility] Comment on above: Performed By: #### C BC #### [address] [address] CBC w/ Diffon 02-27-2025 Erythrocyte distribution width (RBC) [Ratio] 13.6 % Normal 11.6-14.8 [facility] Comment on above: Performed By: #### C BC #### [address] [address] Hematocrit (Bld) [Volume fraction] 31.9 % Low 41.0-53.0 [facility] Comment on above: Performed By: #### C BC #### [address] [address] Hemoglobin (Bld) [Mass/Vol] 10.8 g/dL Low 13.5-17.5 [facility] Comment on above: Performed By: #### C BC #### [address] [address] MCH (RBC) [Entitic mass] 32.3 pg Normal 27.0-35.0 [facility] Comment on above: Performed By: #### C BC #### [address] [address] MCHC 34.0 % Normal 31.0-37.0 [facility] Comment on above: Performed By: #### C BC #### [address] [address] MCV (RBC) [Entitic vol] 95.0 fL Normal 80.0-100.0 [facility] Comment on above: Performed By: #### C BC #### [address] [address] Platelet 159 x10*3/mcL Normal 150-450 [facility] Comment on above: Performed By: #### C BC #### [address] [address] Platelet mean volume (Bld) [Entitic vol] 8.4 fL Normal 6.7-10.6 [facility] Comment on above: Performed By: #### C BC #### [address] [address] RBC 3.36 x10*6/mcL Low 4.30-5.80 [facility] Comment on above: Performed By: #### C BC #### [address] [address] WBC 8.6 x10*3/mcL Normal 4.5-11.0 [facility] Comment on above: Performed By: #### C BC #### [address] [address] Diff Autoon 02-27-2025 Baso Absolute 0.1 x10*3/mcL Normal 0.0-0.2 [facility] Comment on above: Performed By: #### . Manual Diff #### [address] [address] Basophils/100 WBC (Bld) 0.6 % Normal 0.0-1.2 [facility] Comment on above: Performed By: #### . Manual Diff #### [address] [address] Eos Absolute 0.2 x10*3/mcL Normal 0.0-0.4 [facility] Comment on above: Performed By: #### . Manual Diff #### [address] [address] Eosinophils/100 WBC (Bld) 1.9 % Normal 0.0-6.1 [facility] Comment on above: Performed By: #### . Manual Diff #### [address] [address] Lymph Absolute 1.1 x10*3/mcL Normal 1.0-4.8 [facility] Comment on above: Performed By: #### . Manual Diff #### [address] [address] Lymphocytes/100 WBC (Bld) 13.1 % Low 27.2-40.8 [facility] Comment on above: Performed By: #### . Manual Diff #### [address] [address] Radford Absolute 1.0 x10*3/mcL Normal 0.3-1.1 [facility] Comment on above: Performed By: #### . Manual Diff #### [address] [address] Monocytes/100 WBC (Bld) 11.3 % Normal 4.7-13.9 [facility] Comment on above: Performed By: #### . Manual Diff #### [address] [address] Neutro Absolute 6.2 x10*3/mcL Normal 1.8-7.7 [facility] Comment on above: Performed By: #### . Manual Diff #### [address] [address] Neutro Auto 73.1 % High 47.2-70.8 [facility] Comment on above: Performed By: #### . Manual Diff #### [address] [address] Orthopedic Progress Noteon 0 02-27-2025 Orthopedic Progress [...] Oral, q4hr, PRN Tylenol, 650 mg, Oral, [id number] Times, PRN Zofran, 4 mg= 2 mL, [...] Discharge pending - SNF Electronically signed by Christian Rae PA-C 02/27/25 08:15 EDT Normal [facility] .eGFRon 02-26-2025 GFR/1.73 sq M.predicted MDRD (S/P/Bld) [Vol rate/Area] mL/min/{1.73_m2} Normal >=60 [facility] Comment on above: Result Comment: [facility] Laboratories have implemented the eGFR [...] = years Performed By: #### E GFR ####[address] [address] Basic Metabolic Profileon Creatinine [Mass/Vol] 0.81 mg/dL Normal 0.61-1.24 [facility] Comment on above: Performed By: #### . Manual Diff #### [address] [address] Urea nitrogen [Mass/Vol] 11 mg/dL Normal 8-26 [facility] Comment on above: Performed By: #### . Manual Diff #### [address] [address] Urea nitrogen/Creatinine [Mass ratio] 13.6 mg/mg Normal 10.0-20.0 [facility] Comment on above: Performed By: #### . Manual Diff #### [address] [address] Anion gap [Moles/Vol] 5 mmol/L Normal 4-12 [facility] Comment on above: Performed By: #### . Manual Diff #### [address] [address] Calcium [Mass/Vol] 8.4 mg/dL Low 8.5-10.3 [facility] Comment on above: Performed By: #### . Manual Diff #### [address] [address] Chloride [Moles/Vol] 104 mmol/L Normal 98-110 [facility] Comment on above: Performed By: #### . Manual Diff #### [address] [address] CO2 [Moles/Vol] 26 mmol/L Normal 22-32 [facility] Comment on above: Performed By: #### . Manual Diff #### [address] [address] Glucose [Mass/Vol] 112 mg/dL High 70-99 [facility] Comment on above: Performed By: #### . Manual Diff #### [address] [address] Potassium [Moles/Vol] 3.6 mmol/L Normal 3.4-4.8 [facility] Comment on above: Performed By: #### . Manual Diff #### [address] [address] Sodium [Moles/Vol] 135 mmol/L Normal 133-142 [facility] Comment on above: Performed By: #### . Manual Diff #### [place] [id number] CBC w/ Diffon 02-26-2025 Erythrocyte distribution width (RBC) [Ratio] 13.7 % Normal 11.6-14.8 [facility] Comment on above: Performed By: #### C BC #### [place] [id number] Hematocrit (Bld) [Volume fraction] 32.0 % Low 41.0-53.0 [facility] Comment on above: Performed By: #### C BC #### [place] [id number] Hemoglobin (Bld) [Mass/Vol] 11.2 g/dL Low 13.5-17.5 [facility] Comment on above: Performed By: #### C BC #### [place] [id number] MCH (RBC) [Entitic mass] 33.1 pg Normal 27.0-35.0 [facility] Comment on above: Performed By: #### C BC #### [place] [id number] MCHC 34.9 % Normal 31.0-37.0 [facility] Comment on above: Performed By: #### C BC #### [place] [id number] MCV (RBC) [Entitic vol] 94.9 fL Normal 80.0-100.0 [facility] Comment on above: Performed By: #### C BC #### [place] [id number] Platelet 167 x10*3/mcL Normal 150-450 [facility] Comment on above: Performed By: #### C BC #### [place] [id number] Platelet mean volume (Bld) [Entitic vol] 8.5 fL Normal 6.7-10.6 [facility] Comment on above: Performed By: #### C BC #### [address] [address] RBC 3.37 x10*6/mcL Low 4.30-5.80 [facility] Comment on above: Performed By: #### C BC #### [address] [address] WBC 9.9 x10*3/mcL Normal 4.5-11.0 [facility] Comment on above: Performed By: #### C BC #### [address] [address] Diff Autoon 02-26-2025 Baso Absolute 0.0 x10*3/mcL Normal 0.0-0.2 [facility] Comment on above: Performed By: #### . Manual Diff #### [address] [address] Basophils/100 WBC (Bld) 0.4 % Normal 0.0-1.2 [facility] Comment on above: Performed By: #### . Manual Diff #### [address] [address] Eos Absolute 0.1 x10*3/mcL Normal 0.0-0.4 [facility] Comment on above: Performed By: #### . Manual Diff #### [address] [address] Eosinophils/100 WBC (Bld) 0.6 % Normal 0.0-6.1 [facility] Comment on above: Performed By: #### . Manual Diff #### [address] [address] Lymph Absolute 1.4 x10*3/mcL Normal 1.0-4.8 [facility] Comment on above: Performed By: #### . Manual Diff #### [address] [address] Lymphocytes/100 WBC (Bld) 14.0 % Low 27.2-40.8 [facility] Comment on above: Performed By: #### . Manual Diff #### [address] [address] [place] Absolute 1.0 x10*3/mcL Normal 0.3-1.1 [facility] Comment on above: Performed By: #### . Manual Diff #### [address] [address] Monocytes/100 WBC (Bld) 10.0 % Normal 4.7-13.9 [facility] Comment on above: Performed By: #### . Manual Diff #### [address] [address] Neutro Absolute 7.4 x10*3/mcL Normal 1.8-7.7 [facility] Comment on above: Performed By: #### . Manual Diff #### [address] [address] Neutro Auto 75.0 % High 47.2-70.8 [facility] Comment on above: Performed By: #### . Manual Diff #### [address] [address] Orthopedic Progress Noteon 0 - Orthopedic Progress Note Subjective POD #2 Patient [...] Oral, q4hr, PRN Tylenol, 650 mg, Oral, g2gr-Ralqofse Times, PRN Zofran, 4 mg= 2 mL, IV Push, q4hr, PRN Assessment/Plan POD#2 s/p L2-5 decompression and fusion with durotomy Plan: 1. Continue drains 2. Pain controlled 3. Activity - as tolerated 4. Labs pending 5. PT/OT today 6. Discharge pending Electronically signed by Kirk Weber PA-C 02/26/25 07:03 EDT [facility] Progress Note-Nurseon 2024 Progress Note-Nurse Patient refused to ambulate to the chair for breakfast. Electronically signed by Anupama Pacheco 02/26/25 16:26 EDT Normal [facility] Orthopedic Progress Noteon 0 02-25-2025 Orthopedic Progress [...] pending 5. Discharge pending Electronically signed by Kirk Weber PA-C 02/25/25 06:54 EDT Normal [facility] XR OR Spine Lumbar Crossfire on 02-25-2025 [...] Electronically Signed in Other Vendor System) Normal [facility] ECG 12 Leadon 01-28-2025 Normal sinus rhythm, nonspecific ST and T changes, borderline ECG [facility] Work Phone: Activated partial thrombopla stin time (aPTT) in platelet poor plasma by coagulation aon 01-26-2025 aPTT Coag (PPP) [Time] Activated partial thromboplastin time (aPTT) in platelet poor plasma by coagulation a 22.3-36.2 [facility] Basophils Auto (Bld) [#/Vol] on 01-26-2025 Basophils (Bld) [#/Vol] Automated basoph il count 0.0-0.1 [facility] Basophils/100 WBC Auto (Bld) on 01-26-2025 Basophils/100 WBC (Bld) Automated basophil % 0. 2-2.0 [facility] Eosinophils/100 WBC Auto (Bl d)on 01-26-2025 Eosinophils/100 WBC (Bld) Automated eosinophil % 0.9-7.0 [facility] Erythrocyte distribution wid th Auto (RBC) [Ratio]on 01-26-2025 Erythrocyte distribution width (RBC) [Ratio] Erythrocyte distribution width [Ratio] by Automated count 11.0-15.0 [facility] Estimated glomerular filtrat ion rate (GFR) non- Americanon 01-26-2025 GFR/1.73 sq M.predicted among non-blacks MDRD (S/P/Bld) [Vol rate/Area] Estimated glomerular filtration rate (GFR) non- >=60 mL/min/1.73 m 2 [facility] Hematocrit Auto (Bld) [Volum e fraction]on 01-26-2025 Hematocrit (Bld) [Volume fraction] Hematocrit [Volume Fraction] of Blood by Automated count 42.0-54.0 [facility] Hemoglobin [Mass/volume] in Bloodon 01-26-2025 Hemoglobin (Bld) [Mass/Vol] Hemoglobin [Mass/volume] in Blood 14.0-18.0 [facility] INR in Platelet poor plasma by Coagulation assayon 01-26-2025 INR Coag (PPP) [Relative time] INR in Platelet poor plasma by Coagulation assay [facility] Comment on above: DESIRED INR:2.0-3.0 CONDITIONS NOT LISTED BELOW2.5-3.5 FOR PROSTHETIC HEART VALVE REPLACEMENT2.5-3.5 RECURRENT THROMBOSIS Laboratory - Chemistry and C hemistry - challengeon 01-26-2025 Calcium [Mass/Vol] 9.2 mg/dL 8.5-10.1 [facility] Chloride [Moles/Vol] 100 mmol/L 98-107 [facility] CO2 [Moles/Vol] 29.9 mmol/L 21.0-32.0 [facility] Creatinine [Mass/Vol] 0.94 mg/dL 0.70-1.30 [facility] GFR/1.73 sq M.predicted MDRD (S/P/Bld) [Vol rate/Area] mL/min/{1.73_m2} >=60 mL/min/1.73 m 2 [facility] Glucose [Mass/Vol] 129 mg/dL High 74-106 [facility] Potassium [Moles/Vol] 4.2 mmol/L 3.5-5.1 [facility] Sodium [Moles/Vol] 138 mmol/L 136-145 [facility] Urea nitrogen [Mass/Vol] 19.0 mg/dL High 7.0-18.0 [facility] Urea nitrogen/Creatinine [Mass ratio] 20.2 mg/mg [facility] Laboratory - Hematology and Cell countson 01-26-2025 Immature granulocytes/100 WBC (Bld) 0.8 % High 0.0-0.5 [facility] Leukocytes [#/volume] correc yina for nucleated erythrocytes in Blood by Automated counon 01-26-2025 WBC corrected for nucl RBC Auto (Bld) [#/Vol] Leukocytes [#/volume] corrected for nucleated erythrocytes in Blood by Automated coun 4.0-11.0 [facility] Lymphocytes Auto (Bld) [#/Vo l]on 01-26-2025 Lymphocytes (Bld) [#/Vol] Lymphocytes [#/volume] in Blood by Automated count 1.2-3.8 [facility] Lymphocytes/100 WBC Auto (Bl d)on 01-26-2025 Lymphocytes/100 WBC (Bld) Lymphocytes/100 leukocytes in Blood by Automated count Low 20.5-60.0 [facility] MCH Auto (RBC) [Entitic mass ]on 01-26-2025 MCH (RBC) [Entitic mass] MCH [Entitic mass] by Automated count 25.9-34.0 [facility] MCHC Auto (RBC) [Mass/Vol]on 01-26-2025 MCHC (RBC) [Mass/Vol] MCHC [Mass/volume] by Automated count 29.9-35.2 [facility] MCV Auto (RBC) [Entitic vol] on 01-26-2025 MCV (RBC) [Entitic vol] MCV [Entitic vol ume] by Automated count 80.0-94.0 [facility] Monocytes Auto (Bld) [#/Vol] on 01-26-2025 Monocytes (Bld) [#/Vol] Automated blood monocyte count 0.3-0.8 [facility] Monocytes/100 WBC Auto (Bld) on 01-26-2025 Monocytes/100 WBC (Bld) Automated monocyte % 1. 7-12.0 [facility] Neutrophils Auto (Bld) [#/Vo l]on 01-26-2025 Neutrophils (Bld) [#/Vol] Neutrophils [#/volume] in Blood by Automated count 1.4-6.5 [facility] Neutrophils/100 WBC Auto (Bl d)on 01-26-2025 Neutrophils/100 WBC (Bld) Automated neutrophil % 43.0-75.0 [facility] No Panel Informationon 01-26 Eosinophils # (Auto) 0.1 10 3/uL 0.0-0.7 [facility] Immature Granulocyte # (Auto) 0.06 10 3/uL High 0.00-0.03 [facility] Platelet mean volume Auto (B ld) [Entitic vol]on 01-26-2025 Platelet mean volume (Bld) [Entitic vol] Platelet mean volume [Entitic volume] in Blood by Automated count 9.5-13.5 [facility] Platelets Auto (Bld) [#/Vol] on 01-26-2025 Platelets (Bld) [#/Vol] Platelets [#/vol ume] in Blood by Automated count 150-450 [facility] Prothrombin time (PT)on 01-04 PT Coag (PPP) [Time] Prothrombin time (PT) 9.0- 11.6 [facility] RBC Auto (Bld) [#/Vol]on RBC (Bld) [#/Vol] Erythrocytes [#/volume] in Blood by Automated count Low 4.70-6.10 [facility] Serum or plasma anion gap de terminationon 01-26-2025 Anion gap [Moles/Vol] Serum or plasma an ion gap determination [facility] XR Knee - right 1 or 2 [...] dislocation. Impression: Unremarkable right total knee arthroplasty. [facility] Radiology Study observation (narrative) [facility] Main OR Intraoperative Recor don 08-19-2024 Main OR Intraoperative Record Main OR Intraoperative Record IntraOp Document Type FTPM Summary Primary Physician: Bert Huang DO Finalized Date/Time: 08/19/24 10:42:12 Pt. Name: EDVIN ROLAND John [place]/Sex: 1945 Male Med Rec #: [id number] Physician: Bert Huang DO Financial #: [id number] Pt. Type: P Room/Bed: / Admit/Disch: 08/19/24 [...] Chen Role Performed Anesthesiologist Surgeon - Primary Crime Scene Specialist Outpatient Program Coordinator Time In 08/19/24 08:11:00 08/19/24 08:11:00 08/19/24 [...] Tomasa Davidson Role Performed Scrub - Primary Magistrate Assistant - Primary Time In 08/19/24 08:11:00 08/19/24 [...] DO, Bradford A., Odalis RT, Bobo P, Liliana Alcala CRNA Time Out Complete 08/19/24 08:30:00 Outcomes Met? [...] 1 - Clean Last Modified By: Tomasa eKlly RN 08/19/24 10:05:46 General Case Data FTPM [...] and tissue Entry 1 Skin Integrity Intact, [place], Warm, & Skin Abnormality No Dry Outcomes [...] Yes Left (more content not included)... Normal [facility] Main OR Preoperative Recordo n 08-19-2024 Main OR Preoperative Record Main OR Preoperative Record Holding Area Document Type FTPM Summary Primary Physician: Bert Huang DO Finalized Date/Time: 08/19/24 07:57:29 Pt. Name: EDVIN ROLAND/Sex: 1945 Male Med Rec #: [id number] Physician: Bert Huang DO Financial #: [id number] Pt. 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, lumbar stenosis with neurogenic claudication M48.062, G84.9 chronic pain syndrome Procedure: Implantation percutaneous spinal cord stimulator neuro electrodes x 2, implantation of spinal cord stimulator neuroreceiver/pulse generator, complex analysis of neurostimulator Anesthesia: MAC Complications: None Outpatient Program Coordinator: grants assistant provided Implanted devices: -Neuroreceiver/pulse generator: [employer] wavewriter alpha 16 -Neuroelectrodes: two avista 50cm [...] the epidural space with confirmation using glass [id number] syringe and lead was threaded at T11/12 [...] wound was irrigated with sterile saline. The [employer] wave clinical writer alpha 16 pulse generator kit was [...] pocket. Then with the help of the grants assistant both wounds were closed in a [...] antibiotics were provided. Correction to above: No engineering inspection assistant was utilized during this case. Closure was performed by myself. [facility] Comment on above: Result Comment: Elec tronically Signed By: Bert Huang DO\.br\Date and Time Signed: 08/19/24 10:38 EDT Proceduralon 08-19-2024 Procedural Procedural Patient: EDVIN ROLAND Age: 78 years Sex: Male : [...] list: All Problems Anticoagulated / SNOMED CT 531763194 / Confirmed At risk for falls / SNOMED CT 927839929 / Possible BMI 31.0-31.9,adult / SNOMED CT 930032798 / Confirmed BPH with urinary obstruction / SNOMED CT 9697871246 / Confirmed Chronic prostatitis / SNOMED CT 19106880 / Confirmed Dysuria / SNOMED CT 32740933 / Confirmed ED (erectile dysfunction) / SNOMED CT 7705577980 / Confirmed Elevated PSA / SNOMED CT 7686729489 / Confirmed Gross hematuria / SNOMED CT 607446102 / Confirmed Hernia, inguinal, right / SNOMED CT 276555857 / Confirmed Hypercholesterolemia / SNOMED CT 75691751 / Confirmed Impotence / SNOMED CT 6940068626 / Confirmed Incomplete bladder emptying / SNOMED CT 318748301 / Confirmed Incontinence without sensory awareness / SNOMED CT 8379435136 / Confirmed Leaking of urine / SNOMED CT 6498166831 / Confirmed Nocturia / SNOMED CT 145555791 / Confirmed Post-void dribbling / SNOMED CT 666850215 / Confirmed Prostate cancer screening / SNOMED CT 938918988 / Confirmed Urge incontinence / SNOMED CT 609444416 / Confirmed Urinary frequency / SNOMED CT 107700379 / Confirmed Urinary incontinence / SNOMED CT 5115887711 / Confirmed Urinary retention / SNOMED CT 813247428 / Confirmed Weak urinary stream / SNOMED CT 751698912 / Confirmed Resolved: Hypertension / SNOMED CT 7981332504 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 Normal [facility] MRSA Screenon 10-10-2024 MRSA DNA TRIPP+probe Ql (Unsp spec) Microbiology PROCEDURE: MRSA Screen [R1] SOURCE: Nasal BODY SITE: COLLECTED DATE/TIME: 08/12/2024 10:00 EDT RECEIVED DATE/TIME: 08/12/2024 11:08 EDT START DATE/TIME: 08/12/2024 11:08 EDT FREE TEXT SOURCE: Bert Huang DO, DO, Bradford A. FINAL REPORTS Final Report [] Verified Date/Time: 08/14/2024 10:10 EDT MRSA Negative. Performing Locations R1: This test was performed at: [facility], [address] [place] [address], [facility] , , [facility] Comment on above: Performed By: #### [id number] #### [facility] [address] [place] [address] Main OR Intraoperative Recor don 06-24-2024 Main OR Intraoperative Record Main OR Intraoperative Record IntraOp Document Type FTPM Summary Primary Physician: Bert Huang DO Finalized Date/Time: 06/24/24 09:11:34 Pt. Name: EDVIN ROLAND/Sex: 1945 Male Med Rec #: [id number] Physician: Bert Huang DO Financial #: [id number] Pt. Type: P Room/Bed: / Admit/Disch: 06/24/24 [...] Liliana Alcala CRNA, DO, Bradford A. Roderick RNTomasa Role Performed Anesthesiologist Surgeon - Primary Magistrate Assistant - Primary Outpatient Program Coordinator Time In 06/24/24 08:04:00 06/24/24 08:04:00 06/24/24 08:04:00 Time Out 06/24/24 09:10:00 06/24/24 09:10:00 06/24/24 09:10:00 Procedure SPINAL CORD STIMULATOR SPINAL CORD STIMULATOR SPINAL CORD STIMULATOR TRIAL(.) TRIAL(.) TRIAL(.) Comments Last Modified By: Robin JENNINGS, Tomasa Kelly RN, Tomasa Alexander RN 06/24/24 09:11:29 06/24/24 09:11:29 06/24/24 09:11:29 Entry 4 Entry 5 Entry 6 Case Attendee Gerry JENNINGS, Gokul Jaquez Jr, DO RT(R), Adry Role Performed Scrub - Primary Anesthesiologist of Crime Scene Specialist Record Time In 06/24/24 08:04:00 06/24/24 08:04:00 06/24/24 08:04:00 Time Out 06/24/24 09:10:00 06/24/24 09:10:00 06/24/24 09:10:00 Procedure SPINAL CORD STIMULATOR SPINAL CORD STIMULATOR SPINAL CORD STIMULATOR TRIAL(.) TRIAL(.) TRIAL(.) Comments Last Modified By: Robin JENNINGS, Tomasa Kelly RN, Tomasa Alexander RN 06/24/24 09:11:29 06/24/24 09:11:29 06/24/24 09:11:29 Entry 7 Case Attendee Iris Sheffield Role Performed Crime Scene Specialist Time In 06/24/24 08:04:00 Time Out 06/24/24 09:10:00 Procedure SPINAL CORD STIMULATOR TRIAL(.) Comments Last Modified By: Tomasa Kelly RN 06/24/24 09:11:29 General Comments: [employer] Lucretia Peterson Perioperative Protocols FTPM Pre-Care Text: [...] X-ray Applicable) PreOp Antibiotic Yes Time Out Gokul Escalera Jr, DO, Given Participants Robin JENNINGS, Gerry Harvey RN, Jerry Roldan DO, Bradford A., Iris Sheffield, Soni RT(R), Adry Time Out Complete 06/24/24 08:12:00 [...] and tissue Entry 1 Skin Integrity Intact, [place], Warm, & Skin Abnormality No Dry Outcomes Met? Yes Last Modified By: Tomasa Kelly RN 06/24/24 07:37:40 Post-Care Text: The patient is free from (more content not included)... Normal [facility] Main OR Preoperative Recordo n 06-24-2024 Main OR Preoperative Record Main OR Preoperative Record Holding Area Document Type FTPM Summary Primary Physician: Bert Huang DO Finalized Date/Time: 06/24/24 07:19:15 Pt. Name: EDVIN ROLAND [place]/Sex: 1945 Male Med Rec #: [id number] Physician: Bert Huang DO Financial #: [id number] Pt. Type: P Room/Bed: / Admit/Disch: 06/24/24 [...] By: Ramírez Samaniego RN 06/24/24 07:19 Normal [facility] Operative Reporton 4 Operative Report Operative Report Diagnosis: Lumbar postlaminectomy pain syndrome, M96.1. Chronic pain syndrome G89.29. Procedure: Spinal cord stimulator trial under fluoroscopic guidance with two 16 contact [employer] leads from [employer] and 2 click anchors, 50462. Analyze neurostimulator complex, 14766. Anesthesia: MAC Complications: None Description: After informed [...] the epidural space with confirmation using glass ouxs-cp-nynhvfnxwl syringe and lead was threaded at T12/L1. [...] regarding her spinal cord stimulator trial. Normal [facility] Comment on above: Result Comment: Elec tronically Signed By: Bert Huang DO\.br\Date and Time Signed: 06/24/24 09:14 EDT MRSA [...] Locations R1: This test was performed at: [facility], [address] [place] [address], [facility]- , , [facility] Comment on above: Performed By: #### [id number] #### [facility] [address] [place] [address] Ambulatory Visit Summaryon 0 06-12-2024 Ambulatory Visit Summary Ambulatory Visit Summary EDVIN ROLAND :1945 Visit Date:06/12/2024 Ambulatory Visit Instructions Your Diagnosis 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 [address] Medications What How Much When [...] Any p (more content not included)... Normal [facility] Urology Office/Clinic Noteon 06-12-2024 Urology Office/Clinic Note [...] rashes or suspicious lesions Assessment/Plan saw DLS 1. 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 Patient Moderate 30-39 Min 84785 Urnls Dip Stick Auto w/o Microscopy POC 25755 2. Incomplete bladder emptying (R39.14: Feeling of incomplete bladder emptying) PVR (cc): 12/27/21 - 94 05/30/22 - 225 (after botox) 08/31/22 - 56 12/14/23 - (random scan) *no scan at visit today-no bladder scanner IO* Ordered: E&M of Est. Patient Moderate 30-39 Min 52757 Urnls Dip Stick Auto w/o Microscopy POC 99689 3. BPH with urinary obstruction (N40.1: Benign prostatic hyperplasia with lower urinary tract symptoms) S/P TURP 04/28/20 by NIKOLAS S/p Cysto w/ UD 12/05/21 and 12/02/20 by NIKOLAS. IPSS 28 (severe sxs). Not currently taking any BPH medications. UA today shows trace-intact blood, negative for nitrites and leuks. see #1. Ordered: E&M of Est. Patient Moderate 30-39 Min 79061 Urnls Dip Stick Auto w/o Microscopy POC 67219 4. ED (erectile dysfunction) (N52.9: Male erectile [...] few wee (more content not included)... Normal [facility] Comment on above: Result Comment: Elec tronically Signed By: ALANIS WOOD PA-C\.br\Date and Time Signed: 06/12/24 11:06 EDT\.br\Electronically Co-Signed By: Radha Ohara\.br\Date and Time Co-Signed: 06/12/24 10:32 EDT Cholesterol in LDL Calc [Mas s/Vol]on 04-29-2024 Cholesterol in LDL [Mass/Vol] 59.0 mg/dL [facility] Comment on above: <100 mg/dl [id number] 0-129 mg/dl NEAR OR ABOVE [id number] mg/dl BORDERLINE LEQS366-562 mg/dl HIGH>190 mg/dl VERY HIGH Cholesterol in VLDL Calc [Ma ss/Vol]on 04-29-2024 Cholesterol in VLDL [Mass/Vol] 11.4 mg/dL [facility] Estimated glomerular filtrat ion rate (GFR) non- Americanon 04-29-2024 GFR/1.73 sq M.predicted among non-blacks MDRD (S/P/Bld) [Vol rate/Area] mL/min/{1.73_m2} >=60 [facility] Globulin Calc (S) [Mass/Vol] on 04-29-2024 Globulin (S) [Mass/Vol] 3.4 g/dL F [facility] Laboratory - Chemistry and C hemistry - challengeon 04-29-2024 Albumin [Mass/Vol] 3.8 g/dL 3.4-5.0 [facility] ALP [Catalytic activity/Vol] 89 U/L 46-116 [facility] ALT [Catalytic activity/Vol] 24 U/L 16-63 [facility] AST [Catalytic activity/Vol] 14 U/L Low 15-37 [facility] Bilirubin [Mass/Vol] 0.9 mg/dL 0.2-1.0 [facility] Calcium [Mass/Vol] 9.5 mg/dL 8.5-10.1 [facility] Chloride [Moles/Vol] 99 mmol/L 98-107 [facility] Cholesterol [Mass/Vol] 138 mg/dL <=200 [facility] Cholesterol in HDL [Mass/Vol] 68 mg/dL High 40-60 [facility] Comment on above: > or =60 mg/dl - LOW CARDIOVASCULAR RISK<40 mg/dl - HIGH CARDIOVASCULAR RISK CO2 [Moles/Vol] 27.8 mmol/L 21.0-32.0 [facility] Creatinine [Mass/Vol] 0.82 mg/dL 0.70-1.30 [facility] GFR/1.73 sq M.predicted MDRD (S/P/Bld) [Vol rate/Area] mL/min/{1.73_m2} >=60 [facility] Glucose [Mass/Vol] 109 mg/dL High 74-106 [facility] Potassium [Moles/Vol] 3.8 mmol/L 3.5-5.1 [facility] Protein [Mass/Vol] 7.2 g/dL 6.4-8.2 [facility] Sodium [Moles/Vol] 137 mmol/L 136-145 [facility] Triglyceride [Mass/Vol] 57 mg/dL <=[address] [facility] Urea nitrogen [Mass/Vol] 18.0 mg/dL 7.0-18.0 [facility] Urea nitrogen/Creatinine [Mass ratio] 22.0 mg/mg [facility] Serum or plasma albumin/glob ulin mass ratioon 04-29-2024 Albumin/Globulin [Mass ratio] 1.1 {ratio} [facility] Serum or plasma anion gap de terminationon 04-29-2024 Anion gap [Moles/Vol] 14.0 mmol/L [facility] Serum or plasma total choles terol/high density lipoprotein (HDL) cholesterol mass seema 04-29-2024 Cholesterol.total/Renate sterol in HDL [Mass ratio] 2.0 {ratio} [facility] Comment on above: 3.3 - 4.4 LOW RISK4. 4 - 7.1 AVERAGE RISK7.1 - 11.0 MODERATE RISK>11.0 HIGH RISK Consent for Treatmenton 03-05 Consent for Treatment [id number] Normal [facility] Consultation Noteon 03-14-20 Consultation Note Patient: KEILA [...] cap(s), Refills(s) 1, Pharmacy: [facility]/pharmacy #[id number], 193, cm, 01/25/24 13:38:00 EDT, Height/Length Dosing, 102.4, kg, 01/25/24 13:38:00 EDT, Weight Dosing Viagra 50 mg Tab: See Instructions, 1-2 tab(s) po 1 hr before sexual acitivity. do not exceed 2 tabs in 24 hrs., # 15 tab(s), Refills(s) 3, [id number] 193, cm, 08/31/22 9:11:00 EDT, Height/Length [...] BID, # 60 cap(s), Refills(s) 2, [id number], 193, cm, 11/09/23 11:29:00 EST, Height/Length [...] list: All Problems Hypercholesterolemia / SNOMED CT 86076188 / Confirmed Hernia, inguinal, right / SNOMED CT 891478016 / Confirmed BPH with urinary obstruction / SNOMED CT 4335758919 / Confirmed Elevated PSA / SNOMED CT 4686052838 / Confirmed Impotence / SNOMED CT 0107082441 / Confirmed Urinary frequency / SNOMED CT 755029390 / Confirmed Nocturia / SNOMED CT 534714015 / Confirmed Weak urinary stream / SNOMED CT 705480260 / Confirmed Gross hematuria / SNOMED CT 274724845 / Confirmed Anticoagulated / SNOMED CT 663280898 / Confirmed Urge incontinence / SNOMED CT 258556084 / Confirmed Chronic prostatitis / SNOMED CT 45565611 / Confirmed Dysuria / SNOMED CT 26725106 / Confirmed Urinary retention / SNOMED CT 603692594 / Confirmed BMI 31.0-31.9,adult / SNOMED CT 090465767 / Confirmed Incomplete bladder emptying / SNOMED CT 423041003 / Confirmed Post-void dribbling / SNOMED CT 613134359 / Confirmed 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 5/5 strength Integumentary: Warm, Dry, [place]. Neurologic: Alert, Oriented. Psy (more content not included)... Normal [facility] Comment on above: Result Comment: Elec tronically Signed By: Stephenie Barrios PA-C\.br\Date and Time Signed: 03/14/24 10:17 EDT Office/Clinic Note-Physician on 03-14-2024 Office/Clinic Note-Physician [id number]#1.0 0TIFF Normal [facility] Patient Correspondenceon Patient Correspondence [id number]#1.0 0TIFF Normal [facility] Patient Correspondence [id number]#1.0 0TIFF Normal [facility] Patient History Officeon Patient History Office [id number]#1.0 0TIFF Normal [facility] Consent for Treatmenton 01-04 Consent for Treatment [id number]#1. 00TIFF [facility] Consultation Noteon 01-25-20 Consultation Note Patient: [...] day(s), # 60 cap(s), Refills(s) 1, [id number], cm, 01/25/24 13:38:00 EDT, Height/Length [...] list: All Problems Hypercholesterolemia / SNOMED CT 92710975 / Confirmed Hernia, inguinal, right / SNOMED CT 551407205 / Confirmed BPH with urinary obstruction / SNOMED CT 3228358969 / Confirmed Elevated PSA / SNOMED CT 4704811504 / Confirmed Impotence / SNOMED CT 2361831810 / Confirmed Urinary frequency / SNOMED CT 254379182 / Confirmed Nocturia / SNOMED CT 680815839 / Confirmed Weak urinary stream / SNOMED CT 073222278 / Confirmed Gross hematuria / SNOMED CT 776965155 / Confirmed Anticoagulated / SNOMED CT 866583698 / Confirmed Urge incontinence / SNOMED CT 219033963 / Confirmed Chronic prostatitis / SNOMED CT 26125633 / Confirmed Dysuria / SNOMED CT 08835798 / Confirmed Urinary retention / SNOMED CT 986419262 / Confirmed BMI 31.0-31.9,adult / SNOMED CT 173878549 / Confirmed Incomplete bladder emptying / SNOMED CT 839003501 / Confirmed Post-void dribbling / SNOMED CT 571133172 / Confirmed Incontinence without sensory awareness / SNOMED CT 1562437805 / Confirmed At risk for falls / SNOMED CT 169100538 / Possible ED (erectile dysfunction) / SNOMED CT 3848683867 / Confirmed Leaking of urine / SNOMED CT 6935508832 / Confirmed Urinary incontinence / SNOMED CT 0126084231 / Confirmed Prostate cancer screening / SNOMED CT 988870550 / Confirmed Resolved: Hypertension / SNOMED CT 8795157854 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 Normal [facility] Comment on above: Result Comment: Elec tronically Signed By: Stephenie Barrios PA-C\.br\Date and Time Signed: 01/25/24 13:48 EDT Office/Clinic Note-Physician on 01-25-2024 Office/Clinic Note-Physician [id number]#1. 00TIFF Normal [facility] Patient Correspondenceon Patient Correspondence [id number]#1. 00TIFF Normal [facility] Patient Correspondence [id number]#1. 00TIFF Normal [facility] Patient Correspondence [id number]#1. 00TIFF Normal [facility] Patient History Officeon Patient History Office [id number]#1. 00TIFF [facility] Consent for Procedure/Surger yon 01-09-2024 Consent for Procedure/Surgery [id number]#1.0 0TIFF [facility] Consent for Treatmenton Consent for Treatment [id number]#1.0 0TIFF Normal [facility] Discharge Instructionson Discharge Instructions [id number]#1.0 0TIFF Normal [facility] IntraOperative Documentson 0 01-09-2024 IntraOperative Documents [id number]#1.0 0TIFF Normal [facility] Main OR Intraoperative Recor don 01-09-2024 Main OR Intraoperative Record IntraOp Document Type FTPM Summary Primary Physician: Bert Huang DO Finalized Date/Time: 01/09/24 11:31:11 Pt. Name: EDVIN ROLAND/Sex: 1945 Male Med Rec #: [id number] Physician: Bert Huang DO Financial #: [id number] Pt. Type: P Room/Bed: / Admit/Disch: 01/09/24 [...] Tomasa Davidson Role Performed Surgeon - Primary Magistrate Assistant - Primary Scrub - Primary Time In 01/09/24 11:25:00 01/09/24 11:25:00 01/09/24 11:25:00 Time Out 01/09/24 11:31:00 01/09/24 11:31:00 01/09/24 11:31:00 Procedure SACROILIAC JOINT SACROILIAC JOINT SACROILIAC JOINT INJECTION(Bilateral) INJECTION(Bilateral) INJECTION(Bilateral) Comments Last Modified By: Gerry JENNINGS, Savannah Garrett RN, Savannah Tsai RN 01/09/24 11:31:02 01/09/24 11:31:02 01/09/24 11:31:02 Entry 4 Case Attendee Scott Craig Role Performed Crime Scene Specialist Time In 01/09/24 11:25:00 Time Out 01/09/24 [...] and tissue Entry 1 Skin Integrity Intact, [place], Warm, and Skin Abnormality No Dry Outcomes [...] Met? Y (more content not included)... Normal [facility] Main OR Preoperative Recordo n 01-09-2024 Main OR Preoperative Record Holding Area Document Type FTPM Summary Primary Physician: Bert Huang DO Finalized Date/Time: 01/09/24 11:01:07 Pt. Name: EDVIN ROLAND/Sex: 1945 Male Med Rec #: [id number] Physician: Bert Huang DO Financial #: [id number] Pt. Type: P Room/Bed: / Admit/Disch: 01/09/24 [...] By: Anupama Huggins RN 01/09/24 11:01 Normal [facility] Automated epithelial cells c ount in urine sediment (number/area)on 12-24-2023 Epithelial cells Auto (Urine sed) [#/Area] FEW #/LPF NONE/RARE [facility] Automated leukocytes count i n urine sediment (number/area)on 12-24-2023 WBC Auto (Urine sed) [#/Area] NONE SEEN #/HPF 0-2 [facility] Automated urine specific gra vity by refractometryon 12-24-2023 Specific gravity Refractometry automated (U) [Rel density] 1.020 1.005-1.025 [facility] Basophils Auto (Bld) [#/Vol] on 12-24-2023 Basophils (Bld) [#/Vol] 0.0 10 3/uL 0.0-0.1 [facility] Basophils/100 WBC Auto (Bld) on 12-24-2023 Basophils/100 WBC (Bld) 0.4 % 0.2-2.[address] [facility] Bilirubin Auto test strip (U ) [Mass/Vol]on 12-24-2023 Bilirubin (U) [Mass/Vol] Negative NEGATIVE [facility] Color Auto (U)on 12-24-2023 Color (U) YELLOW YELLOW [facility] Eosinophils/100 WBC Auto (Bl d)on 12-24-2023 Eosinophils/100 WBC (Bld) 0.9 % 0.9-7.0 [facility] Erythrocyte distribution wid th Auto (RBC) [Ratio]on 12-24-2023 Erythrocyte distribution width (RBC) [Ratio] 13.3 % 11.0-15.0 [facility] Estimated glomerular filtrat ion rate (GFR) non- Americanon 12-24-2023 GFR/1.73 sq M.predicted among non-blacks MDRD (S/P/Bld) [Vol rate/Area] mL/min/{1.73_m2} >=60 [facility] Hematocrit Auto (Bld) [Volum e fraction]on 12-24-2023 Hematocrit (Bld) [Volume fraction] 45.1 % 42.0-54.0 [facility] Hemoglobin [Mass/volume] in Bloodon 12-24-2023 Hemoglobin (Bld) [Mass/Vol] 15.3 g/dL 14.0-18.0 [facility] Ketones Auto test strip (U) [Mass/Vol]on 12-24-2023 Ketones (U) [Mass/Vol] Negative NEGATIVE [facility] - Chemistry and C hemistry - challengeon 12-24-2023 Calcium [Mass/Vol] 9.1 mg/dL 8.5-10.1 [facility] Chloride [Moles/Vol] 102 mmol/L 98-107 [facility] CO2 [Moles/Vol] 25.5 mmol/L 21.0-32.0 [facility] Creatinine [Mass/Vol] 0.73 mg/dL 0.70-1.30 [facility] GFR/1.73 sq M.predicted MDRD (S/P/Bld) [Vol rate/Area] mL/min/{1.73_m2} >=60 [facility] Glucose [Mass/Vol] 113 mg/dL 74-106 [facility] Potassium [Moles/Vol] 3.8 mmol/L 3.5-5.1 [facility] Sodium [Moles/Vol] 138 mmol/L 136-145 [facility] Urea nitrogen [Mass/Vol] 13.0 mg/dL 7.0-18.0 [facility] Urea nitrogen/Creatinine [Mass ratio] 17.8 mg/mg [facility] - Hematology and Cell countson 12-24-2023 Immature granulocytes/100 WBC (Bld) 0.6 % 0.0-0.5 [facility] Leukocytes [#/volume] correc yina for nucleated erythrocytes in Blood by Automated counon 12-24-2023 WBC corrected for nucl RBC Auto (Bld) [#/Vol] 9.5 10 3/uL 4.0-11.0 [facility] Lymphocytes Auto (Bld) [#/Vo l]on 12-24-2023 Lymphocytes (Bld) [#/Vol] 1.1 10 3/uL 1.2-3.8 [facility] Lymphocytes/100 WBC Auto (Bl d)on 12-24-2023 Lymphocytes/100 WBC (Bld) 11.5 % 20.5-60.0 [facility] MCH Auto (RBC) [Entitic mass ]on 12-24-2023 MCH (RBC) [Entitic mass] 31.2 pg 25.9-34.0 [facility] MCHC Auto (RBC) [Mass/Vol]on 12-24-2023 MCHC (RBC) [Mass/Vol] 33.9 g/dL 29.9-35.2 [facility] MCV Auto (RBC) [Entitic vol] on 12-24-2023 MCV (RBC) [Entitic vol] 92.0 fL 80.0-94.[address] [facility] Monocytes Auto (Bld) [#/Vol] on 12-24-2023 Monocytes (Bld) [#/Vol] 0.7 10 3/uL 0.3-0.8 [facility] Monocytes/100 WBC Auto (Bld) on 12-24-2023 Monocytes/100 WBC (Bld) 7.7 % 1.7-12.[address] [facility] Mucus LM Ql (Urine sed)on Mucus Ql (Urine sed) SMALL NONE SEEN [facility] Neutrophils Auto (Bld) [#/Vo l]on 12-24-2023 Neutrophils (Bld) [#/Vol] 7.5 10 3/uL 1.4-6.5 [facility] Neutrophils/100 WBC Auto (Bl d)on 12-24-2023 Neutrophils/100 WBC (Bld) 78.9 % 43.0-75.0 [facility] No Panel Informationon 12-24 Eosinophils # (Auto) 0.1 10 3/uL 0.0-0.7 [facility] Immature Granulocyte # (Auto) 0.06 10 3/uL 0.00-0.03 [facility] Platelet mean volume Auto (B ld) [Entitic vol]on 12-24-2023 Platelet mean volume (Bld) [Entitic vol] 10.7 fL 9.5-13.5 [facility] Platelets Auto (Bld) [#/Vol] on 12-24-2023 Platelets (Bld) [#/Vol] 197 10 3/uL 150-450 [facility] Protein Auto test strip (U) [Mass/Vol]on 12-24-2023 Protein (U) [Mass/Vol] Negative NEG/TRACE Fi [facility] RBC Auto (Bld) [#/Vol]on RBC (Bld) [#/Vol] 4.90 10 6/uL 4.70-6.10 [facility] Serum or plasma anion gap de terminationon 12-24-2023 Anion gap [Moles/Vol] 14.3 mmol/L [facility] Specific gravity Auto test s trip (U) [Rel density]on 12-24-2023 Specific gravity (U) [Rel density] CLEAR CLEAR [facility] Urine bacteria detection by automated methodon 12-24-2023 Bacteria Auto Ql (U) NONE SEEN #/HPF NONE SEEN [facility] Urine glucose measurement by test strip (mass/volume)on 12-24-2023 Glucose Test strip (U) [Mass/Vol] Negative NEGATIVE [facility] Urine hemoglobin detection b y automated test stripon 12-24-2023 Hemoglobin Auto test strip Ql (U) Negative NEGATIVE [facility] Urine nitrite detection by a utomated test stripon 12-24-2023 Nitrite Auto test strip Ql (U) Negative NEGATIVE [facility] Urine sediment leukocyte cou nt by microscopy (number/high power field)on 12-24-2023 WBC LM.HPF (Urine sed) [#/Area] NONE SEEN #/HPF NONE SEEN [facility] Urobilinogen Auto test strip (U) [Mass/Vol]on 12-24-2023 Urobilinogen Qn (U) 0.2 {Kathia'U}/dL 0.2-1.0 [facility] pH Auto test strip (U)on pH (U) 6.5 [pH] 5.0-9.0 [facility] Patient Correspondenceon Patient Correspondence [id number]#1.0 0TIFF Normal [facility] Insurance Correspondence Off iceon 12-17-2023 Insurance Correspondence Office [id number]#2. 00TIFF Normal [facility] Patient Educationon 12-14-19 Patient Education Urology Urinary [...] stimulation). ? For women, using a medical asst to prevent urine leaks. This is a [...] urine. ? (more content not included)... Normal [facility] Urology Office/Clinic Noteon 12-14-2023 Urology Office/Clinic Note [...] [facility] [address], [place] [address]- [phone] Additional Instructions: Patient Education Urinary Incontinence I, [...] guidance (05/01/ (more content not included)... Normal [facility] Comment on above: Result Comment: Elec tronically Signed By: Homero XAVIER MD\.br\Date and Time Signed: 12/14/23 11:03 EST\.br\Electronically Co-Signed By: Lina Perkins\.br\Date and Time Co-Signed: 12/14/23 11:01 EST Consent for Treatmenton Consent for Treatment [id number]#1.0 0TIFF Normal [facility] Consultation Noteon 12-10-19 Consultation Note Patient: KEILA [...] day(s), # 30 tab(s), Refills(s) 6, [id number] 193, cm, 05/29/23 8:59:00 EDT, Height/Length [...] BID, # 60 cap(s), Refills(s) 2, [id number] 193, cm, 11/09/23 11:29:00 EST, Height/Length [...] list: All Problems Hypercholesterolemia / SNOMED CT 55185377 / Confirmed Hernia, inguinal, right / SNOMED CT 211722483 / Confirmed BPH with urinary obstruction / SNOMED CT 6222574708 / Confirmed Elevated PSA / SNOMED CT 1665921499 / Confirmed Impotence / SNOMED CT 1088847007 / Confirmed Urinary frequency / SNOMED CT 932027830 / Confirmed Nocturia / SNOMED CT 965596848 / Confirmed Weak urinary stream / SNOMED CT 452313033 / Confirmed Gross hematuria / SNOMED CT 198519305 / Confirmed Anticoagulated / SNOMED CT 491128023 / Confirmed Urge incontinence / SNOMED CT 209637932 / Confirmed Chronic prostatitis / SNOMED CT 40372627 / Confirmed Dysuria / SNOMED CT 26036279 / Confirmed Urinary retention / SNOMED CT 780629669 / Confirmed BMI 31.0-31.9,adult / SNOMED CT 871689157 / Confirmed Incomplete bladder emptying / SNOMED CT 805642037 / Confirmed Post-void dribbling / SNOMED CT 770930195 / Confirmed Incontinence without sensory awareness / SNOMED CT 3451362339 / Confirmed At risk for falls / SNOMED CT 272886472 / Possible ED (erectile dysfunction) / SNOMED CT 3018109662 / Confirmed Leaking of urine / SNOMED CT 0951437804 / Confirmed Urinary incontinence / SNOMED CT 0740282689 / Confirmed Prostate cancer screening / SNOMED CT 060461940 / Confirmed Resolved: Hypertension / SNOMED CT 2943768721 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 Normal [facility] Comment on above: Result Comment: Elec tronically Signed By: Sophie SHIPMAN, Stephenie\.br\Date and Time Signed: 12/10/23 12:53 EST\.br\Electronically Co-Signed By: Bert Huang DO.br\Date and Time Co-Signed: 12/11/23 09:21 EST Office/Clinic Note-Physician on 12-10-2023 Office/Clinic Note-Physician [id number]#1.0 0TIFF Normal [facility] Patient Correspondenceon Patient Correspondence [id number]#1.0 0TIFF Normal [facility] Patient Correspondence [id number]#1.0 0TIFF Normal [facility] Patient History Officeon Patient History Office [id number]#1.0 0TIFF Normal [facility] Consent for Treatmenton Consent for Treatment [id number]#1. 00TIFF Normal [facility] Consultation Noteon 11-09-19 Consultation Note Patient: KEILA RLOAND Age: 78 years Sex: Male : 1945 [...] list: All Problems Hypercholesterolemia / SNOMED CT 78742800 / Confirmed Hernia, inguinal, right / SNOMED CT 352946789 / Confirmed BPH with urinary obstruction / SNOMED CT 6408860547 / Confirmed Elevated PSA / SNOMED CT 7211395939 / Confirmed Impotence / SNOMED CT 7171903288 / Confirmed Urinary frequency / SNOMED CT 723798240 / Confirmed Nocturia / SNOMED CT 399654751 / Confirmed Weak urinary stream / SNOMED CT 373212987 / Confirmed Gross hematuria / SNOMED CT 420960740 / Confirmed Anticoagulated / SNOMED CT 437323647 / Confirmed Urge incontinence / SNOMED CT 405263721 / Confirmed Chronic prostatitis / SNOMED CT 79573421 / Confirmed Dysuria / SNOMED CT 81386285 / Confirmed Urinary retention / SNOMED CT 330690844 / Confirmed BMI 31.0-31.9,adult / SNOMED CT 175613055 / Confirmed Incomplete bladder emptying / SNOMED CT 272242859 / Confirmed Post-void dribbling / SNOMED CT 168064655 / Confirmed Incontinence without sensory awareness / SNOMED CT 5876309649 / Confirmed At risk for falls / SNOMED CT 985087770 / Possible ED (erectile dysfunction) / SNOMED CT 2483466263 / Confirmed Leaking of urine / SNOMED CT 8330634721 / Confirmed Urinary incontinence / SNOMED CT 4341192764 / Confirmed Prostate cancer screening / SNOMED CT 833701944 / Confirmed Resolved: Hypertension / SNOMED CT 3346919607 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 Injection sites well-healed Neurologic: Alert, Oriented. Psychiatric: Cooperative, Appropriate mood & affect. Impression and Plan Patient is a 78-year-old male with a past medical history significant for postlaminectomy syndrome, chronic pain, and lumbar spondylosis (more content not included)... Normal [facility] Comment on above: Result Comment: Elec tronically Signed By: Sophie SHIPMAN, Stephenie\.br\Date and Time Signed: 11/09/23 11:45 EST Legal Correspondence Officeo n 11-09-2023 Legal Correspondence Office [id number]#1. 00TIFF Normal [facility] Office/Clinic Note-Physician on 11-09-2023 Office/Clinic Note-Physician [id number]#1. 00TIFF Normal [facility] Patient Correspondenceon Patient Correspondence [id number]#1. 00TIFF [facility] Patient Correspondence [id number]#1. 00TIFF [facility] Patient Correspondence [id number]#1. 00TIFF Normal [facility] Patient Correspondence [id number]#1. 00TIFF [facility] Patient History Officeon Patient History Office [id number]#1. 00TIFF [facility] Consent for Procedure/Surger yon 10-08-2023 Consent for Procedure/Surgery [id number]#1. 00TIFF [facility] Consent for Treatmenton Consent for Treatment [id number]#1. 00TIFF [facility] Discharge Instructionson Discharge Instructions [id number]#1. 00TIFF [facility] IntraOperative Documentson 1 12-09-2022 IntraOperative Documents [id number]#1. 00TIFF [facility] Main OR Intraoperative Recor don 10-08-2023 Main OR Intraoperative Record IntraOp Document Type FTPM Summary Primary Physician: Bib Sanchez MD Finalized Date/Time: 10/08/23 08:08:45 Pt. Name: EDVIN ROLAND John Sands/Sex: 1945 Male Med Rec #: [id number] Physician: Bib Sanchez MD Financial #: [id number] Pt. Type: P Room/Bed: / Admit/Disch: 10/08/23 06:48:57 - Institution: Case Times FTPM Entry 1 Patient Times In Room 10/08/23 07:54:00 Out Room 10/08/23 08:09:00 Procedure Times Start 10/08/23 07:57:00 Stop 10/08/23 08:08:00 Anesthesia Times Last Modified By: Tomasa Kelly RN 10/08/23 08:08:29 Case Attendance FTPM Entry 1 Entry 2 Entry 3 Case Attendee Bib Sanchez MD, RN, Tomasa Garrett RN, [facility] Role Performed Surgeon - Primary Magistrate Assistant - Primary Scrub - Primary Time In 10/08/23 07:54:00 10/08/23 07:54:00 10/08/23 07:54:00 Time Out 10/08/23 08:09:00 10/08/23 08:09:00 10/08/23 08:09:00 Procedure LUMBAR RADIO FREQUENCY LUMBAR RADIO FREQUENCY LUMBAR RADIO FREQUENCY ABLATION(Bilateral) ABLATION(Bilateral) ABLATION(Bilateral) Comments Last Modified By: Robin oTmasa JENNINGS RN, Tomasa Alexander RN 10/08/23 08:08:31 10/08/23 08:08:31 10/08/23 08:08:31 Entry 4 Case Attendee Soni MCNULTY(R)Adry Role Performed Crime Scene Specialist Time In 10/08/23 07:54:00 Time Out 10/08/23 [...] Participants Gerry JENNINGS, Laura Roldan MD, Soni Bateman(R)Adry Time Out Complete 10/08/23 07:54:00 Outcomes Met? [...] and tissue Entry 1 Skin Integrity Intact, [place], Warm, and Skin Abnormality No Dry Outcomes [...] By Neto (more content not included)... Normal [facility] Main OR Preoperative Recordo n 10-08-2023 Main OR Preoperative Record Holding Area Document Type FTPM Summary Primary Physician: Bib Sanchez MD Finalized Date/Time: 10/08/23 07:19:53 Pt. Name: EDVIN ROLAND/Sex: 1945 Male Med Rec #: [id number] Physician: Bib Sanchez MD Financial #: [id number] Pt. Type: P Room/Bed: / Admit/Disch: 10/08/23 [...] By: Sneha Beal RN 10/08/23 07:19 Normal [facility] Operative Reporton 3 Operative Report Patient: KEILA [...] side with the identical technique and medications. [place] were removed and bandages applied. The patient [...] 7:12 EST Respiratory Rate 15 br/min . [facility] Comment on above: Result Comment: Elec tronically Signed By: Laura WALTERS, Bib Jackson\.br\Date and Time Signed: 10/08/23 08:08 EST Patient Correspondenceon Patient Correspondence [id number]#1.0 0TIFF [facility] Insurance Correspondence Off iceon 09-21-2023 Insurance Correspondence Office [id number]#2. 00TIFF [facility] Consent for Treatmenton 09-05 Consent for Treatment [id number]#1. 00TIFF [facility] Consultation Noteon 09-14-20 Consultation Note Patient: [...] day(s), # 30 tab(s), Refills(s) 6, Pharmacy: [facility] #[id number], 193, cm, 05/29/23 8:59:00 EDT, Height/Length Dosing, 108.9, kg, 03/19/23 8:54:00 EDT, Weight Dosing Viagra 50 mg Tab: See Instructions, 1-2 tab(s) po 1 hr before sexual acitivity. do not exceed 2 tabs in 24 hrs., # 15 tab(s), Refills(s) 3, Pharmacy: [facility] #[id number], 193, cm, 08/31/22 9:11:00 EDT, Height/Length [...] list: All Problems Hypercholesterolemia / SNOMED CT 94539708 / Confirmed Hernia, inguinal, right / SNOMED CT 912238134 / Confirmed BPH with urinary obstruction / SNOMED CT 7039015541 / Confirmed Elevated PSA / SNOMED CT 5547901895 / Confirmed Impotence / SNOMED CT 7559901095 / Confirmed Urinary frequency / SNOMED CT 952564102 / Confirmed Nocturia / SNOMED CT 343397171 / Confirmed Weak urinary stream / SNOMED CT 898617775 / Confirmed Gross hematuria / SNOMED CT 811970732 / Confirmed Anticoagulated / SNOMED CT 484470230 / Confirmed Urge incontinence / SNOMED CT 186051820 / Confirmed Chronic prostatitis / SNOMED CT 68257226 / Confirmed Dysuria / SNOMED CT 53341710 / Confirmed Urinary retention / SNOMED CT 126733365 / Confirmed BMI 31.0-31.9,adult / SNOMED CT 552746716 / Confirmed Incomplete bladder emptying / SNOMED CT 124622699 / Confirmed Post-void dribbling / SNOMED CT 981234433 / Confirmed Incontinence without sensory awareness / SNOMED CT 7619527109 / Confirmed At risk for falls / SNOMED CT 783862448 / Possible ED (erectile dysfunction) / SNOMED CT 4483043991 / Confirmed Leaking of urine / SNOMED CT 1294659633 / Confirmed Urinary incontinence / SNOMED CT 7131223811 / Confirmed Prostate cancer screening / SNOMED CT 942069523 / Confirmed Resolved: Hypertension / SNOMED CT 3508205470 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 Injection site well-healed Neurologic: Alert, Oriented. Psychiatric: Cooperative, Appropriate mood & affect. Results Review Lumbar MRI report once again reviewed Impression and Plan Patient is a 77-year-old male with a past medical history significant cannot for lumbar spondylosis, postlaminectomy syndrome, and chronic low back pain. Patient underwent his second bilateral L3-4 and L4-5 facet med (more content not included)... Normal [facility] Comment on above: Result Comment: Elec tronically Signed By: Stephenie Barrios PA-C\.br\Date and Time Signed: 09/14/23 08:14 EST\.br\Electronically Co-Signed By: Bib Sanchez MD\.br\Date and Time Co-Signed: 09/24/23 12:00 EST Office/Clinic Note-Physician on 09-14-2023 Office/Clinic Note-Physician [id number]#1. 00TIFF Normal [facility] Patient Correspondenceon Patient Correspondence [id number]#1. 00TIFF Normal [facility] Patient Correspondence [id number]#1. 00TIFF Normal [facility] Patient Correspondence [id number]#1. 00TIFF Normal [facility] Patient History Officeon Patient History Office [id number]#1. 00TIFF Normal [facility] Consent for Procedure/Surger yon 09-04-2023 Consent for Procedure/Surgery [id number]#1. 00TIFF Normal [facility] Consent for Treatmenton 08-07 Consent for Treatment [id number] [facility] [place] [id number]#1. 00TIFF Normal [facility] Discharge Instructionson Discharge Instructions [id number]#1. 00TIFF Normal [facility] IntraOperative Documentson IntraOperative Documents [id number]#1. 00TIFF [facility] Main OR Intraoperative Recor don 09-04-2023 Main OR Intraoperative Record IntraOp Document Type FTPM Summary Primary Physician: Bib Sanchez MD Finalized Date/Time: 09/04/23 10:36:25 Pt. Name: EDVIN ROLAND/Sex: 1945 Male Med Rec #: [id number] Physician: Bib Sanchez MD Financial #: [id number] Pt. Type: P Room/Bed: / Admit/Disch: 09/04/23 [...] Savannah Ceballos Role Performed Surgeon - Primary Magistrate Assistant - Primary Scrub - Primary Time In 09/04/23 10:30:00 09/04/23 10:30:00 09/04/23 10:30:00 Time Out 09/04/23 10:37:00 09/04/23 10:37:00 09/04/23 10:37:00 Procedure MEDIAL BRANCH MEDIAL BRANCH MEDIAL BRANCH BLOCK(Bilateral) BLOCK(Bilateral) BLOCK(Bilateral) Comments Last Modified By: Robin JENNINGS, Tomasa Kelly RN, Tomasa Alexander RN 09/04/23 10:36:10 09/04/23 10:36:10 09/04/23 10:36:10 Entry 4 Case Attendee Scott Craig Role Performed Crime Scene Specialist Time In 09/04/23 10:30:00 Time Out 09/04/23 [...] and tissue Entry 1 Skin Integrity Intact, [place], Warm, and Skin Abnormality No Dry Outcomes [...] 10:31:36 Post-Car (more content not included)... Normal [facility] Main OR Preoperative Recordo n 09-04-2023 Main OR Preoperative Record Holding Area Document Type FTPM Summary Primary Physician: Bib Sanchez MD Finalized Date/Time: 09/04/23 10:17:31 Pt. Name: EDVIN ROLAND /Sex: 1945 Male Med Rec #: [id number] Physician: Bib Sanchez MD Financial #: [id number] Pt. Type: P Room/Bed: / Admit/Disch: 09/04/23 [...] Signed By: Sharee Dominguez RN 09/04/23 10:17 [facility] Operative Reporton Operative Report Patient: KEILA [...] EDT Respiratory Rate 16 br/min . Normal [facility] Comment on above: Result Comment: Elec tronically Signed By: Bib Sanchez MD\.br\Date and Time Signed: 09/04/23 10:36 EDT Consent for Treatmenton 08-06 Consent for Treatment [id number]#1.0 0TIFF Normal [facility] Consultation Noteon 08-28-20 Consultation Note Patient: KEILA ROLAND Age: 77 years Sex: Male : 1945 Associated Diagnoses: None Author: Laura WALTERS, Bib Jackson Subjective Chief complaint 08/28/2023 7:51 EDT lower [...] list: All Problems Anticoagulated / SNOMED CT 733472106 / Confirmed At risk for falls / SNOMED CT 279723453 / Possible BMI 31.0-31.9,adult / SNOMED CT 651024685 / Confirmed BPH with urinary obstruction / SNOMED CT 6133461894 / Confirmed Chronic prostatitis / SNOMED CT 86301844 / Confirmed Dysuria / SNOMED CT 73475692 / Confirmed ED (erectile dysfunction) / SNOMED CT 0301418870 / Confirmed Elevated PSA / SNOMED CT 9922713767 / Confirmed Gross hematuria / SNOMED CT 493247909 / Confirmed Hernia, inguinal, right / SNOMED CT 383516109 / Confirmed Hypercholesterolemia / SNOMED CT 83319489 / Confirmed Impotence / SNOMED CT 5116246789 / Confirmed Incomplete bladder emptying / SNOMED CT 904176006 / Confirmed Incontinence without sensory awareness / SNOMED CT 0462015765 / Confirmed Leaking of urine / SNOMED CT 6404481530 / Confirmed Nocturia / SNOMED CT 573973201 / Confirmed Post-void dribbling / SNOMED CT 429468093 / Confirmed Prostate cancer screening / SNOMED CT 242979852 / Confirmed Urge incontinence / SNOMED CT 564741874 / Confirmed Urinary frequency / SNOMED CT 673738725 / Confirmed Urinary incontinence / SNOMED CT 6432594830 / Confirmed Urinary retention / SNOMED CT 993584105 / Confirmed Weak urinary stream / SNOMED CT 826744685 / Confirmed Objective Vital Signs 08/28/2023 7:51 [...] to follow-up (more content not included)... Normal [facility] Comment on above: Result Comment: Elec tronically Signed By: Laura WALTERS, Bib Jackson\.br\Date and Time Signed: 08/28/23 08:26 EDT Insurance Correspondence Off iceon 08-28-2023 Insurance Correspondence Office [id number]#1.0 0TIFF [facility] Office/Clinic Note-Physician on 08-28-2023 Office/Clinic Note-Physician [id number]#1. 00TIFF [facility] Patient Correspondenceon Patient Correspondence [id number]#1. 00TIFF [facility] Patient Correspondence [id number]#1. 00TIFF Normal [facility] Patient Correspondence [id number]#1. 00TIFF Normal [facility] Patient Correspondence [id number]#1. 00TIFF [facility] Patient History Officeon Patient History Office [id number]#1. 00TIFF [facility] Consent for Procedure/Surger yon 08-07-2023 Consent for Procedure/Surgery [id number]#1. 00CD:127 [facility] Consent for Treatmenton Consent for Treatment [id number]#1. 00CD:127 [facility] Discharge Instructionson Discharge Instructions [id number]#1. 00CD:127 [facility] IntraOperative Documentson IntraOperative Documents [id number]#1. 00CD:127 [facility] Main OR Intraoperative Recor don 08-07-2023 Main OR Intraoperative Record IntraOp Document Type FTPM Summary Primary Physician: Bib Sanchez MD Finalized Date/Time: 08/07/23 13:22:25 Pt. Name: EDVIN ROLAND/Sex: 1945 Male Med Rec #: [id number] Physician: Bib Sanchez MD Financial #: [id number] Pt. Type: P Room/Bed: / Admit/Disch: 08/07/23 12:06:33 - Institution: Case Times FTPM Entry 1 Patient Times In Room 08/07/23 13:16:00 Out Room 08/07/23 13:23:00 Procedure Times Start 08/07/23 13:19:00 Stop 08/07/23 13:22:00 Anesthesia Times Last Modified By: Tomasa Kelly RN 08/07/23 13:22:17 Case Attendance FTPM Entry 1 Entry 2 Entry 3 Case Attendee Laura WALTERS, Bib Kelly RN, Tomasa Garrett RN, Savannah Ceballos Role Performed Surgeon - Primary Magistrate Assistant - Primary Scrub - Primary Time In 08/07/23 13:16:00 08/07/23 13:16:00 08/07/23 13:16:00 Time Out 08/07/23 13:23:00 08/07/23 13:23:00 08/07/23 13:23:00 Procedure MEDIAL BRANCH MEDIAL BRANCH MEDIAL BRANCH BLOCK(Bilateral) BLOCK(Bilateral) BLOCK(Bilateral) Comments Last Modified By: Robin JENNINGS, Tomasa Kelly RN, Tomasa Alexander RN 08/07/23 13:22:18 08/07/23 13:22:18 08/07/23 13:22:18 Entry 4 Case Attendee Donna Hall Role Performed Crime Scene Specialist Time In 08/07/23 13:16:00 Time Out 08/07/23 [...] No Time Out Robin JENNINGS, Tomasa Davidson, Rome Garrett RN, Savannah Ceballos, Laura WALTERS, Isabel Bateman Amy [...] and tissue Entry 1 Skin Integrity Intact, [place], Warm, and Skin Abnormality No Dry Outcomes [...] Text: The (more content not included)... Normal [facility] Main OR Preoperative Recordo n 08-07-2023 Main OR Preoperative Record Holding Area Document Type FTPM Summary Primary Physician: Bib Sanchez MD Finalized Date/Time: 08/07/23 12:40:14 Pt. Name: EDVIN ROLAND [place]/Sex: 1945 Male Med Rec #: [id number] Physician: Bib Sanchez MD Financial #: [id number] Pt. Type: P Room/Bed: / Admit/Disch: 08/07/23 [...] By: Sharee Dominguez RN 08/07/23 12:40 Normal [facility] Operative Reporton 3 Operative Report Patient: [...] EDT Respiratory Rate 14 br/min . Normal [facility] Comment on above: Result Comment: Elec tronically Signed By: Laura WALTERS, Bib Jackson\.br\Date and Time Signed: 08/07/23 13:35 EDT Patient Correspondenceon Patient Correspondence [id number]#1. 00CD:127 Normal [facility] Insurance Correspondence Off iceon 07-11-2023 Insurance Correspondence Office [id number]#2. 00CD:127 Normal [facility] PROF CHEM 8 (BAS METB)on Anion gap [Moles/Vol] 12.2 mmol/L Normal [facility] Comment on above: Performed By: #### B MP #### [facility] [address] [address] [address] Liban Whyte Calcium [Mass/Vol] 9.0 mg/dL Normal 8.5-10.1 [facility] Comment on above: Performed By: #### B MP #### [facility] [address] [address] [address] Liban Whyte Chloride [Moles/Vol] 103 mmol/L Normal 98-[address] [facility] Comment on above: Performed By: #### B MP #### [facility] [address] [address] [address] Liban Whyte CO2 [Moles/Vol] 27.6 mmol/L Normal 21.0-32.0 [facility] Comment on above: Performed By: #### B MP #### [facility] [address] [address] [address] Liban Whyte Creatinine [Mass/Vol] 0.82 mg/dL Normal 0.70-1.[address] [facility] Comment on above: Performed By: #### B MP #### [facility] [address] [address] [address] Liban Whyte EGFR-AF OMANI >60 Normal >=60 [facility] Comment on above: Performed By: #### B MP #### [facility] [address] [address] [address] Liban Whyte EGFR-NON AF OMANI >60 Normal >=[address] [facility] Comment on above: Performed By: #### B MP #### [facility] [address] [address] [address] Liban Whyte Glucose [Mass/Vol] 116 mg/dL Critically high 74-106 [facility] Comment on above: Performed By: #### B MP #### [facility] [address] [address] [address] Liban Whyte Potassium [Moles/Vol] 3.8 mmol/L Normal 3.5-5.[address] [facility] Comment on above: Performed By: #### B MP #### [facility] [address] [place] [address] Dr. Liban Whyte Sodium [Moles/Vol] 139 mmol/L Normal 136-145 [facility] Comment on above: Performed By: #### B MP #### [facility] [address] [address] [address] Liban Whyte Urea nitrogen [Mass/Vol] 18.0 mg/dL Normal 7.0-18.[address] [facility] Comment on above: Performed By: #### B MP #### [facility] [address] [place] [address] Dr. Liabn Whyte Urea nitrogen/Creatinine [Mass ratio] 22.0 mg/mg Normal [facility] Comment on above: Performed By: #### B MP #### [facility] [address] [address] [address] Liban hWyte CBC AUTO DIFFon 03-12-2023 BASO # 0.0 103/ul Normal 0.0-0.[address] [facility] Comment on above: Performed By: #### C BC #### [facility] [address] [address] [address] Liban Whyte Basophils/100 WBC (Bld) 0.5 % Normal 0.2-2.0 [facility] Comment on above: Performed By: #### C BC #### [facility] [address] [place] [address] Dr. Liban Whyte EO # 0.1 103/ul Normal 0.0-0.[address] [facility] Comment on above: Performed By: #### C BC #### [facility] [address] [place] [address] Dr. Liban Whyte Eosinophils/100 WBC (Bld) 1.1 % Normal 0.9-7.[address] [facility] Comment on above: Performed By: #### C BC #### [facility] [address] [place] [address] Dr. Liban Whyte Erythrocyte distribution width (RBC) [Ratio] 13.5 % Normal 11.0-15.[address] [facility] Comment on above: Performed By: #### C BC #### [facility] [address] [place] [address] Dr. Liban Whyte Hematocrit (Bld) [Volume fraction] 47.5 % Normal 42.0-54.[address] [facility] Comment on above: Performed By: #### C BC #### [facility] [address] [place] [address] Dr. Liban Whyte Hemoglobin (Bld) [Mass/Vol] 16.2 g/dL Normal 14.0-18.[address] [facility] Comment on above: Performed By: #### C BC #### [facility] [address] [place] [address] Dr. Liban Whyte IG # 0.04 10e3/ul Critically high 0.00-0.03 [facility] Comment on above: Performed By: #### C BC #### [facility] [address] [place] [address] Dr. Liban Whyte IG % 0.5 % Normal 0.0-0.[address] [facility] Comment on above: Performed By: #### C BC #### [facility] [address] [place] [address] Dr. Liban Whyte LYMPH # 1.7 103/ul Normal 1.2-3.[address] [facility] Comment on above: Performed By: #### C BC #### [facility] [address] [address] [address] Liban Whyte Lymphocytes/100 WBC (Bld) 22.9 % Normal 20.5-60.[address] [facility] Comment on above: Performed By: #### C BC #### [facility] [address] [address] [address] Liban Whyte MANUAL DIFF REQ NO Normal [facility] Comment on above: Performed By: #### C BC #### [facility] [address] [place] [address] Dr. Liban Whyte MCH (RBC) [Entitic mass] 31.6 pg Normal 25.9-34.[address] [facility] Comment on above: Performed By: #### C BC #### [facility] [address] [place] [address] Dr. Liban Whyte MCHC (RBC) [Mass/Vol] 34.1 g/dL Normal 29.9-35.[address] [facility] Comment on above: Performed By: #### C BC #### [facility] [address] [place] [address] Dr. Liban Whyte MCV (RBC) [Entitic vol] 92.6 fL Normal 80.0-94.0 [facility] Comment on above: Performed By: #### C BC #### [facility] [address] [place] [address] Dr. Liban Whyte MONO # 0.7 103/ul Normal 0.3-0.[address] [facility] Comment on above: Performed By: #### C BC #### [facility] [address] [place] [address] Dr. Liban Whyte Monocytes/100 WBC (Bld) 9.4 % Normal 1.7-12.0 [facility] Comment on above: Performed By: #### C BC #### [facility] [address] [place] [address] Dr. Lbian Whyte NEUT # 4.8 103/ul Normal 1.4-6.[address] [facility] Comment on above: Performed By: #### C BC #### [facility] [address] [address] [address] Liban Whyte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 Phone: [facility] 04-29-2025 08:15-0400 Diastolic blood pressure 68 mm[Hg] Alonso Patricia MD Work Phone: [facility] 04-29-2025 08:15-0400 Heart rate 63 /min Alonso Patricia MD Work Phone: [facility] 04-29-2025 08:15-0400 Respiratory rate 15 /min Alonso Patricia MD Work Phone: [facility] 04-29-2025 08:15-0400 SaO2% (BldA) [Mass fraction] 97 % Alonso Patricia MD Work Phone: [facility] 04-29-2025 08:15-0400 Systolic blood pressure 142 mm[Hg] Alonso Patricia MD Work Phone: [facility] 04-27-2025 21:09-0400 Body mass index (BMI) [Ratio] 28.82 kg/m2 Alonso Patricia MD Work Phone: [facility] 04-27-2025 21:09-0400 Body weight 107.4 kg Alonso Patricia MD Work Phone: [facility] 04-23-2025 14:58-0400 Body height 193 cm Alonso Patricia MD Work Phone: [facility] 02-16-2025 14:29-0400 Body height 193.[address] [facility] 02-16-2025 14:29-0400 Body mass index (BMI) [Ratio] 30.2 kg/m2 [facility] 02-16-2025 14:29-0400 Body weight 112.[address] [facility] 02-16-2025 14:29-0400 Diastolic blood pressure 69 mm[Hg] [facility] 02-16-2025 14:29-0400 Heart rate 86 /min [facility] 02-16-2025 14:29-0400 Respiratory rate 12 /min [facility] 02-16-2025 14:29-0400 Systolic blood pressure 112 mm[Hg] [facility] 01-28-2025 11:06-0400 Diastolic blood pressure 70 mm[Hg] Marisol Connors MD Work Phone: [facility] 01-28-2025 11:06-0400 Systolic blood pressure 130 mm[Hg] Marisol Connors MD Work Phone: [facility] 01-28-2025 10:36-0400 Body height 182.9 cm Marisol Connors MD Work Phone: [facility] 01-28-2025 10:36-0400 Body mass index (BMI) [Ratio] 34.04 kg/m2 Marisol Connors MD Work Phone: [facility] 01-28-2025 10:36-0400 Body weight 113.85 kg Marisol Connors MD Work Phone: [facility] 01-28-2025 10:36-0400 Heart rate 70 /min Marisol Connors MD Work Phone: [facility] 09-24-2024 08:51-0500 Diastolic blood pressure 74 mm[Hg] Bert [facility] 09-24-2024 08:51-0500 Heart rate 73 /min Bert Huang [facility] 09-24-2024 08:51-0500 Mean blood pressure 97 mm[Hg] Bert Huang [facility] 09-24-2024 08:51-0500 Respiratory rate 16 /min Bert Huang [facility] 09-24-2024 08:51-0500 Systolic blood pressure 143 mm[Hg] Bert Huang [facility] 08-27-2024 10:58-0400 Diastolic blood pressure 83 mm[Hg] Stephenie Barrios [facility] 08-27-2024 10:58-0400 Heart rate 72 /min Stephenie Barrios [facility] 08-27-2024 10:58-0400 Mean blood pressure 105 mm[Hg] Stephenie Barrios [facility] 08-27-2024 10:58-0400 Respiratory rate 14 /min Stephenie Barrios [facility] 08-27-2024 10:58-0400 Systolic blood pressure 148 mm[Hg] Stephenie [place] [facility] 08-19-2024 10:24-0400 Heart rate 79 /min Bert Huang [facility] 08-19-2024 10:24-0400 SaO2% (BldA) [Mass fraction] 98 % Bert Huang [facility] 08-19-2024 10:24-0400 Diastolic blood pressure 72 mm[Hg] Bert Huang [facility] 08-19-2024 10:24-0400 Mean blood pressure 93 mm[Hg] Bert Huang [facility] 08-19-2024 10:24-0400 Systolic blood pressure 135 mm[Hg] Bert Huang [facility] 08-19-2024 10:24-0400 Body temperature 97.88 [degF] Bert Huang [facility] 08-19-2024 10:24-0400 Respiratory rate 16 /min Bert Huang [facility] 08-19-2024 10:08-0400 Heart rate 77 /min Bert Huang [facility] 08-19-2024 10:08-0400 SaO2% (BldA) [Mass fraction] 95 % Bert Huang [facility] 08-19-2024 10:08-0400 Respiratory rate 16 /min Bert Jerry [facility] 08-19-2024 10:07-0400 Diastolic blood pressure 86 mm[Hg] Noel Jerry [facility] 08-19-2024 10:07-0400 Mean blood pressure 99 mm[Hg] Bert Huang [facility] 08-19-2024 10:07-0400 Systolic blood pressure 125 mm[Hg] Noel Jerry [facility] 08-19-2024 10:03-0400 Diastolic blood pressure 99 mm[Hg] Bert Huang [facility] 08-19-2024 10:03-0400 Systolic blood pressure 120 mm[Hg] Bert Huang [facility] 08-19-2024 10:00-0400 Heart rate 83 /min Bert Huang [facility] 08-19-2024 10:00-0400 Respiratory rate 18 /min Bert Huang [facility] 08-19-2024 10:00-0400 SaO2% (BldA) [Mass fraction] 97 % Bert Huang [facility] 08-19-2024 07:27-0400 Body temperature 97.52 [degF] [facility] 08-19-2024 07:27-0400 Mean blood pressure 100 mm[Hg] [facility] 08-12-2024 09:31-0400 Diastolic blood pressure 73 mm[Hg] [facility] 08-12-2024 09:31-0400 Heart rate 67 /min [facility] 08-12-2024 09:31-0400 Systolic blood pressure 125 mm[Hg] [facility] 07-15-2024 08:47-0400 Body height 193 cm Christjasmeeter Philippe DO Work Phone: [facility] 07-15-2024 08:47-0400 Body mass index (BMI) [Ratio] 28.85 kg/m2 Christopher Philippe DO Work Phone: [facility] 07-15-2024 08:47-0400 Body weight 107.5 kg Christopher Philippe DO Work Phone: [facility] 07-15-2024 08:47-0400 Diastolic blood pressure 82 mm[Hg] Christopher Philippe DO Work Phone: [facility] 07-15-2024 08:47-0400 Heart rate 72 /min Christopher Philippe DO Work Phone: [facility] 07-15-2024 08:47-0400 SaO2% (BldA) [Mass fraction] 98 % Christopher Philippe DO Work Phone: [facility] 07-15-2024 08:47-0400 Systolic blood pressure 126 mm[Hg] Christopher Philippe DO Work Phone: [facility] 07-02-2024 08:52-0400 Diastolic blood pressure 77 mm[Hg] Stephenie [facility] 07-02-2024 08:52-0400 Heart rate 67 /min Stephenie [employer] [facility] 07-02-2024 08:52-0400 Mean blood pressure 94 mm[Hg] Stephenie [employer] [facility] 07-02-2024 08:52-0400 Respiratory rate 14 /min Stephenie [employer] [facility] 07-02-2024 08:52-0400 Systolic blood pressure 127 mm[Hg] Stephenie [facility] 06-24-2024 09:23-0400 Heart rate 72 /min [facility] 06-24-2024 09:23-0400 SaO2% (BldA) [Mass fraction] 97 % [facility] 06-24-2024 09:23-0400 Diastolic blood pressure 83 mm[Hg] [facility] 06-24-2024 09:23-0400 Mean blood pressure 102 mm[Hg] Noel [facility] 06-24-2024 09:23-0400 Systolic blood pressure 139 mm[Hg] Bert [facility] 06-24-2024 09:23-0400 Body temperature 97.52 [degF] Bert [facility] 06-24-2024 09:23-0400 Respiratory rate 16 /min Noel [facility] 06-24-2024 09:13-0400 Heart rate 77 /min Noel [facility] 06-24-2024 09:13-0400 SaO2% (BldA) [Mass fraction] 97 % [facility] 06-24-2024 09:13-0400 Respiratory rate 16 /min [facility] 06-24-2024 09:12-0400 Diastolic blood pressure 71 mm[Hg] [facility] 06-24-2024 09:12-0400 Mean blood pressure 95 mm[Hg] [facility] 06-24-2024 09:12-0400 Systolic blood pressure 144 mm[Hg] [facility] 06-24-2024 09:06-0400 Diastolic blood pressure 71 mm[Hg] [facility] 06-24-2024 09:06-0400 Systolic blood pressure 119 mm[Hg] [facility] 06-24-2024 09:05-0400 Heart rate 75 /min [facility] 06-24-2024 09:05-0400 Respiratory rate 17 /min [facility] 06-24-2024 09:05-0400 SaO2% (BldA) [Mass fraction] 97 % [facility] 06-24-2024 07:22-0400 Mean blood pressure 107 mm[Hg] [facility] 06-24-2024 07:21-0400 Body temperature 98.06 [degF] [facility] 06-17-2024 08:17-0400 Diastolic blood pressure 77 mm[Hg] [facility] 06-17-2024 08:17-0400 Heart rate 77 /min [facility] 06-17-2024 08:17-0400 Systolic blood pressure 126 mm[Hg] [facility] 06-13-2024 08:59-0400 Body temperature 97.4 [degF] [facility] 06-13-2024 08:59-0400 Body weight 106.[address] [facility] 06-13-2024 08:59-0400 Diastolic blood pressure 70 mm[Hg] [facility] 06-13-2024 08:59-0400 Heart rate 74 /min [facility] 06-13-2024 08:59-0400 SaO2% (BldA) [Mass fraction] 97 % [facility] 06-13-2024 08:59-0400 Systolic blood pressure 124 mm[Hg] [facility] 05-22-2024 09:56-0400 Body height 182.9 cm Marisol Connors MD Work Phone: [facility] 05-22-2024 09:56-0400 Body mass index (BMI) [Ratio] 31.46 kg/m2 Marisol Connors MD Work Phone: [facility] 05-22-2024 09:56-0400 Body weight 105.23 kg Marisol Connors MD Work Phone: [facility] 05-22-2024 09:56-0400 Diastolic blood pressure 72 mm[Hg] Marisol Connors MD Work Phone: [facility] 05-22-2024 09:56-0400 Heart rate 68 /min Marisol Connors MD Work Phone: [facility] 05-22-2024 09:56-0400 Systolic blood pressure 120 mm[Hg] Marisol Connors MD Work Phone: [facility] 05-07-2024 14:31-0400 Body height 193.[address] [facility] 05-07-2024 14:31-0400 Body mass index (BMI) [Ratio] 28.4 kg/m2 [facility] 05-07-2024 14:31-0400 Body weight 105.[address] [facility] 05-07-2024 14:31-0400 Diastolic blood pressure 79 mm[Hg] [facility] 05-07-2024 14:31-0400 Heart rate 78 /min [facility] 05-07-2024 14:31-0400 Respiratory rate 16 /min [facility] 05-07-2024 14:31-0400 Systolic blood pressure 151 mm[Hg] [facility] 05-02-2024 10:25-0400 Diastolic blood pressure 82 mm[Hg] Stephenie [facility] 05-02-2024 10:25-0400 Heart rate 79 /min Stepheniejakob Barrios [facility] 05-02-2024 10:25-0400 Mean blood pressure 102 mm[Hg] Stephenie [facility] 05-02-2024 10:25-0400 Respiratory rate 14 /min Stephenie [facility] 05-02-2024 10:25-0400 Systolic blood pressure 143 mm[Hg] Stepheniejakob Barrios [facility] 04-28-2024 10:15-0400 Body height 193.[address] [facility] 04-28-2024 10:15-0400 Body mass index (BMI) [Ratio] 28.6 kg/m2 [facility] 04-28-2024 10:15-0400 Body weight 106.[address] [facility] 04-28-2024 10:15-0400 Diastolic blood pressure 79 mm[Hg] [facility] 04-28-2024 10:15-0400 Heart rate 73 /min [facility] 04-28-2024 10:15-0400 Respiratory rate 12 /min [facility] 04-28-2024 10:15-0400 Systolic blood pressure 142 mm[Hg] [facility] 03-14-2024 09:47-0400 Diastolic blood pressure 74 mm[Hg] Stephenie [facility] 03-14-2024 09:47-0400 Heart rate 67 /min Stepheniejakob Barrios [facility] 03-14-2024 09:47-0400 Mean blood pressure 92 mm[Hg] Stephenie [facility] 03-14-2024 09:47-0400 Respiratory rate 16 /min Stephenie [facility] 03-14-2024 09:47-0400 Systolic blood pressure 129 mm[Hg] Stephenie [facility] 01-25-2024 13:26-0400 Diastolic blood pressure 76 mm[Hg] Stephenie [facility] 01-25-2024 13:26-0400 Heart rate 71 /min Stephenie [facility] 01-25-2024 13:26-0400 Mean blood pressure 94 mm[Hg] Stephenie [facility] 01-25-2024 13:26-0400 Respiratory rate 16 /min Stephenie [facility] 01-25-2024 13:26-0400 Systolic blood pressure 130 mm[Hg] Stephenie [facility] 01-18-2024 14:37-0400 Body height 193.[address] [facility] 01-18-2024 14:37-0400 Body mass index (BMI) [Ratio] 27.8 kg/m2 [facility] 01-18-2024 14:37-0400 Body weight 103.[address] [facility] 01-18-2024 14:37-0400 Diastolic blood pressure 79 mm[Hg] [facility] 01-18-2024 14:37-0400 Heart rate 71 /min [facility] 01-18-2024 14:37-0400 Respiratory rate 16 /min [facility] 01-18-2024 14:37-0400 Systolic blood pressure 138 mm[Hg] [facility] 01-09-2024 11:34-0500 Heart rate 57 /min [facility] 01-09-2024 11:34-0500 SaO2% (BldA) [Mass fraction] 96 % [facility] 01-09-2024 11:34-0500 Diastolic blood pressure 93 mm[Hg] [facility] 01-09-2024 11:34-0500 Mean blood pressure 118 mm[Hg] [facility] 01-09-2024 11:34-0500 Systolic blood pressure 167 mm[Hg] [facility] 01-09-2024 11:33-0500 Respiratory rate 16 /min [facility] 01-09-2024 11:27-0500 Diastolic blood pressure 83 mm[Hg] [facility] 01-09-2024 11:27-0500 Heart rate 71 /min [facility] 01-09-2024 11:27-0500 Respiratory rate 14 /min [facility] 01-09-2024 11:27-0500 SaO2% (BldA) [Mass fraction] 98 % [facility] 01-09-2024 11:27-0500 Systolic blood pressure 154 mm[Hg] [facility] 01-09-2024 11:03-0500 Diastolic blood pressure 93 mm[Hg] [facility] 01-09-2024 11:03-0500 Heart rate 62 /min [facility] 01-09-2024 11:03-0500 Mean blood pressure 120 mm[Hg] [facility] 01-09-2024 11:03-0500 Systolic blood pressure 173 mm[Hg] [facility] 01-09-2024 11:01-0500 SaO2% (BldA) [Mass fraction] 96 % [facility] 01-09-2024 11:00-0500 Mean blood pressure 123 mm[Hg] [facility] 01-09-2024 11:00-0500 Body temperature 97.7 [degF] [facility] 01-09-2024 11:00-0500 Respiratory rate 14 /min [facility] 12-31-2023 09:48-0500 Body height 193.[address] [facility] 12-31-2023 09:48-0500 Body mass index (BMI) [Ratio] 27.6 kg/m2 [facility] 12-31-2023 09:48-0500 Body weight 102.[address] [facility] 12-31-2023 09:48-0500 Diastolic blood pressure 81 mm[Hg] [facility] 12-31-2023 09:48-0500 Heart rate 68 /min [facility] 12-31-2023 09:48-0500 Respiratory rate 16 /min [facility] 12-31-2023 09:48-0500 Systolic blood pressure 129 mm[Hg] [facility] 12-14-2023 09:54-0500 Blood Pressure Location Homero XAVIER [facility] 12-14-2023 09:54-0500 Diastolic blood pressure 81 mm[Hg] Homero XAVIER [facility] 12-14-2023 09:54-0500 Heart rate 81 /min Homero XAVIER [facility] 12-14-2023 09:54-0500 Respiratory rate 16 /min Homero XAVIER [facility] 12-14-2023 09:54-0500 Systolic blood pressure 137 mm[Hg] Homero XAVIER [facility] 12-10-2023 12:26-0500 Diastolic blood pressure 86 mm[Hg] Stepheniejakob [facility]rios [facility] 12-10-2023 12:26-0500 Heart rate 60 /min Stepheniejakob Barrios [facility] 12-10-2023 12:26-0500 Mean blood pressure 105 mm[Hg] Stepheniejakob Barrios [facility] 12-10-2023 12:26-0500 Respiratory rate 20 /min Stepheniejakob Barrios [facility] 12-10-2023 12:26-0500 Systolic blood pressure 144 mm[Hg] Stephenie [facility] 11-14-2023 10:31-0500 Body height 182.9 cm Marisol Connors MD Work Phone: [facility] 11-14-2023 10:31-0500 Body mass index (BMI) [Ratio] 31.33 kg/m2 Marisol Connors MD Work Phone: [facility] 11-14-2023 10:31-0500 Body weight 104.78 kg Marisol Connors MD Work Phone: [facility] 11-14-2023 10:31-0500 Diastolic blood pressure 64 mm[Hg] Marisol Connors MD Work Phone: [facility] 11-14-2023 10:31-0500 Heart rate 62 /min Marisol Connors MD Work Phone: [facility] 11-14-2023 10:31-0500 Systolic blood pressure 100 mm[Hg] Marisol Connors MD Work Phone: [facility] 11-09-2023 11:14-0500 Diastolic blood pressure 76 mm[Hg] Stephenie [facility] 11-09-2023 11:14-0500 Heart rate 67 /min Stephenie [facility] 11-09-2023 11:14-0500 Mean blood pressure 95 mm[Hg] Stephenie [facility] 11-09-2023 11:14-0500 Respiratory rate 14 /min Stephenie [facility] 11-09-2023 11:14-0500 Systolic blood pressure 132 mm[Hg] Stephenie [facility] 10-23-2023 09:00-0500 Body height 193.04 cm Dorothy Ball Other [facility] 10-23-2023 09:00-0500 Body mass index (BMI) [Ratio] 28.31 kg/m2 Dorothy Ball Other [facility] [employer] Other 10-23-2023 09:00-0500 Body weight 105.51 kg Dorothy Ball Other [facility] [employer] Other 10-23-2023 09:00-0500 Body weight 105.[address] [facility] 10-23-2023 09:00-0500 Diastolic blood pressure 83 mm[Hg] Dorothy Ball Other [facility] 10-23-2023 09:00-0500 Respiratory rate 12 /min Dorothy Ball Other [facility] [employer] Other 10-23-2023 09:00-0500 Systolic blood pressure 136 mm[Hg] Dorothy Ball Other [facility] 10-08-2023 08:11-0500 Heart rate 62 /min Bib Laura [facility] 10-08-2023 08:11-0500 SaO2% (BldA) [Mass fraction] 93 % Bib [facility] 10-08-2023 08:11-0500 Diastolic blood pressure 98 mm[Hg] Bib [facility] 10-08-2023 08:11-0500 Mean blood pressure 124 mm[Hg] Bib [facility] 10-08-2023 08:11-0500 Systolic blood pressure 175 mm[Hg] Bib [facility] 10-08-2023 08:11-0500 Respiratory rate 16 /min Bib [facility] 10-08-2023 08:02-0500 Diastolic blood pressure 90 mm[Hg] Bib [facility] 10-08-2023 08:02-0500 Heart rate 63 /min Bib [facility] 10-08-2023 08:02-0500 SaO2% (BldA) [Mass fraction] 97 % [facility] 10-08-2023 08:02-0500 Systolic blood pressure 168 mm[Hg] Bib [facility] 10-08-2023 07:16-0500 Heart rate 61 /min Bib [facility] 10-08-2023 07:16-0500 SaO2% (BldA) [Mass fraction] 95 % [facility] 10-08-2023 07:16-0500 Body temperature 97.88 [degF] Bib [facility] 10-08-2023 07:16-0500 Diastolic blood pressure 91 mm[Hg] Bib [facility] 10-08-2023 07:16-0500 Mean blood pressure 115 mm[Hg] Bib [facility] 10-08-2023 07:16-0500 Systolic blood pressure 162 mm[Hg] [facility] 10-08-2023 07:12-0500 Respiratory rate 15 /min Bib [facility] 09-14-2023 07:47-0500 Diastolic blood pressure 75 mm[Hg] Stephenie [facility] 09-14-2023 07:47-0500 Heart rate 63 /min Stephenie [facility] 09-14-2023 07:47-0500 Mean blood pressure 91 mm[Hg] Stephenie [facility] 09-14-2023 07:47-0500 Respiratory rate 16 /min Stephenie [facility] 09-14-2023 07:47-0500 Systolic blood pressure 124 mm[Hg] Stephenie [facility] 08-07-2023 13:25-0400 Heart rate 61 /min Bib Sanchez [facility] 08-07-2023 13:25-0400 SaO2% (BldA) [Mass fraction] 97 % Bib [facility] 08-07-2023 13:25-0400 Diastolic blood pressure 90 mm[Hg] Bib [facility] 08-07-2023 13:25-0400 Mean blood pressure 119 mm[Hg] Bib [facility] 08-07-2023 13:25-0400 Systolic blood pressure 176 mm[Hg] Bib [facility] 08-07-2023 13:19-0400 Diastolic blood pressure 83 mm[Hg] Bib [facility] 08-07-2023 13:19-0400 Heart rate 65 /min Bib [facility] 08-07-2023 13:19-0400 SaO2% (BldA) [Mass fraction] 95 % Bib [facility] 08-07-2023 13:19-0400 Systolic blood pressure 153 mm[Hg] Bib [facility] 08-07-2023 12:34-0400 Heart rate 62 /min Bib [facility] 08-07-2023 12:34-0400 SaO2% (BldA) [Mass fraction] 95 % Bib [facility] 08-07-2023 12:34-0400 Body temperature 97.7 [degF] Bib [facility] 08-07-2023 12:34-0400 Diastolic blood pressure 73 mm[Hg] Bib [facility] 08-07-2023 12:34-0400 Mean blood pressure 101 mm[Hg] Bib [facility] 08-07-2023 12:34-0400 Systolic blood pressure 157 mm[Hg] Bib [facility] 08-07-2023 12:33-0400 Respiratory rate 14 /min Bib [facility] 05-11-2023 09:40-0400 Diastolic blood pressure 77 mm[Hg] Stepheniejakob Barrios [facility] 05-11-2023 09:40-0400 Heart rate 68 /min Stephenie [facility] 05-11-2023 09:40-0400 Mean blood pressure 95 mm[Hg] Stephenie [facility] 05-11-2023 09:40-0400 Respiratory rate 14 /min Stephenie [facility] 05-11-2023 09:40-0400 Systolic blood pressure 130 mm[Hg] Stephenie [facility] 05-01-2023 14:39-0400 Heart rate 61 /min Bib [facility] 05-01-2023 14:39-0400 SaO2% (BldA) [Mass fraction] 96 % Bib [facility] 05-01-2023 14:39-0400 Diastolic blood pressure 80 mm[Hg] Bib [facility] 05-01-2023 14:39-0400 Mean blood pressure 107 mm[Hg] Bib [facility] 05-01-2023 14:39-0400 Systolic blood pressure 160 mm[Hg] Bib [facility] 05-01-2023 14:39-0400 Respiratory rate 14 /min Bib [facility] 05-01-2023 14:34-0400 Diastolic blood pressure 75 mm[Hg] Bib [facility] 05-01-2023 14:34-0400 Heart rate 63 /min Bib [facility] 05-01-2023 14:34-0400 Respiratory rate 14 /min Bib [facility] 05-01-2023 14:34-0400 SaO2% (BldA) [Mass fraction] 98 % Bib [facility] 05-01-2023 14:34-0400 Systolic blood pressure 149 mm[Hg] Bib [facility] 05-01-2023 14:04-0400 Heart rate 60 /min Bib [facility] 05-01-2023 14:04-0400 SaO2% (BldA) [Mass fraction] 94 % Bib [facility] 05-01-2023 14:04-0400 Diastolic blood pressure 78 mm[Hg] Bib [facility] 05-01-2023 14:04-0400 Mean blood pressure 103 mm[Hg] Bib [facility] 05-01-2023 14:04-0400 Systolic blood pressure 152 mm[Hg] Bib [facility] 05-01-2023 14:04-0400 Body temperature 97.34 [degF] Bib Sanchez [facility] 05-01-2023 14:04-0400 Respiratory rate 14 /min Bibrubi [facility] 04-30-2023 09:00-0400 Body height 193.04 cm Dorothy Ball Other [employer] Other 04-30-2023 09:00-0400 Body mass index (BMI) [Ratio] 28.36 kg/m2 Dorothy Ball Other [facility] [employer] Other 04-30-2023 09:00-0400 Body weight 105.69 kg Dorothy Ball Other [facility] [employer] Other 04-30-2023 09:00-0400 Diastolic blood pressure 83 mm[Hg] Dorothy Ball Other [employer] Other 04-30-2023 09:00-0400 Respiratory rate 12 /min Dorothy Ball Other [facility] [employer] Other 04-30-2023 09:00-0400 Systolic blood pressure 135 mm[Hg] Dorothy Ball Other [facility] [employer] Other 03-19-2023 08:45-0400 Diastolic blood pressure 89 mm[Hg] Stephenie [employer] [facility] 03-19-2023 08:45-0400 Heart rate 67 /min Stephenie [employer] [facility] 03-19-2023 08:45-0400 Mean blood pressure 106 mm[Hg] Stephenie [facility] 03-19-2023 08:45-0400 Respiratory rate 20 /min Stephenie [employer] [facility] 03-19-2023 08:45-0400 Systolic blood pressure 140 mm[Hg] Stephenie [facility] 03-12-2023 09:15-0400 Heart rate 65 /min Bib Sanchez [facility] 03-12-2023 09:15-0400 SaO2% (BldA) [Mass fraction] 96 % Bibrubi [facility] 03-12-2023 09:15-0400 Diastolic blood pressure 92 mm[Hg] Bib Sanchez [facility] 03-12-2023 09:15-0400 Mean blood pressure 114 mm[Hg] Bib Sanchez [facility] 03-12-2023 09:15-0400 Systolic blood pressure 159 mm[Hg] Bib Laura [facility] 03-12-2023 09:15-0400 Respiratory rate 16 /min Bib Laura [facility] 03-12-2023 09:11-0400 Diastolic blood pressure 67 mm[Hg] Bib Laura [facility] 03-12-2023 09:11-0400 Heart rate 70 /min Bib [facility] 03-12-2023 09:11-0400 Respiratory rate 14 /min Bib [facility] 03-12-2023 09:11-0400 SaO2% (BldA) [Mass fraction] 94 % Bib [facility] 03-12-2023 09:11-0400 Systolic blood pressure 160 mm[Hg] Bib Laura [facility] 03-12-2023 08:09-0400 Heart rate 71 /min Bib [facility] 03-12-2023 08:09-0400 SaO2% (BldA) [Mass fraction] 95 % Bib [facility] 03-12-2023 08:09-0400 Diastolic blood pressure 69 mm[Hg] Bib Laura [facility] 03-12-2023 08:09-0400 Mean blood pressure 102 mm[Hg] Bib [facility] 03-12-2023 08:09-0400 Systolic blood pressure 168 mm[Hg] Bib [facility] 03-12-2023 08:09-0400 Body temperature 97.52 [degF] Bib Sanchez [facility] 03-12-2023 08:09-0400 Respiratory rate 12 /min Bib Sanchez [facility] 03-08-2023 09:32-0400 Body height 193.04 cm Dorothy E Ball Work Phone: [facility] 250 DO Work Phone: 03-08-2023 09:32-0400 Body mass index (BMI) [Ratio] 29.21 kg/m2 Dorothy E Ball Work Phone: [facility] DO Work Phone: 03-08-2023 09:32-0400 Body surface area Derived from formula 2.39 m2 Dorothy E Ball Work Phone: [facility] 250 DO Work Phone: 03-08-2023 09:32-0400 Body weight 108.86 kg Dorothy E Ball Work Phone: [facility] 250 DO Work Phone: 03-08-2023 09:32-0400 Diastolic blood pressure 84 mm[Hg] Dorothy E Ball Work Phone: [facility] DO Work Phone: 03-08-2023 09:32-0400 Heart rate 68 /min Dorothy E Ball Work Phone: [facility] DO Work Phone: 03-08-2023 09:32-0400 Systolic blood pressure 132 mm[Hg] Dorothy E Ball Work Phone: [facility] DO Work Phone: 02-21-2023 14:00-0400 Body height 193.04 cm Allison Kenyon Other [employer] Other 02-21-2023 14:00-0400 Body mass index (BMI) [Ratio] 30.43 kg/m2 Allison Blades Other [employer] Other 02-21-2023 14:00-0400 Body weight 113.4 kg Allison Blades Other [employer] Other 02-21-2023 14:00-0400 Diastolic blood pressure 66 mm[Hg] Allison Blades Other [employer] Other 02-21-2023 14:00-0400 Systolic blood pressure 110 mm[Hg] Allison Blades Other [employer] Other 01-01-2023 10:00-0500 Body height 190.5 cm LUDWIN VUCETIC Other [facility] [employer] Other 01-01-2023 10:00-0500 Body mass index (BMI) [Ratio] 30.62 kg/m2 LUDWIN VUCETIC Other [facility] [employer] Other 01-01-2023 10:00-0500 Body weight 111.13 kg LUDWIN VUCETIC Other [facility] [employer] Other 01-01-2023 10:00-0500 Diastolic blood pressure 66 mm[Hg] LUDWIN VUCETIC Other [facility] [employer] Other 01-01-2023 10:00-0500 Respiratory rate 16 /min LUDWIN VUCETIC Other [facility] [employer] Other 01-01-2023 10:00-0500 Systolic blood pressure 118 mm[Hg] LUDWIN LEMON Other [facility] Other 11-29-2022 10:30-0500 Body height 193.04 cm Allison Blades Other [employer] Other 11-29-2022 10:30-0500 Body mass index (BMI) [Ratio] 29.84 kg/m2 Allison Blades Other [employer] Other 11-29-2022 10:30-0500 Body weight 111.22 kg Allison Blades Other [employer] Other 11-29-2022 10:30-0500 Diastolic blood pressure 84 mm[Hg] Allison Blades Other [employer] Other 11-29-2022 10:30-0500 Systolic blood pressure 138 mm[Hg] Allison Blades Other [employer] Other 11-28-2022 09:00-0500 Blood Pressure Location ALANIS NINA [facility] 11-28-2022 09:00-0500 Diastolic blood pressure 84 mm[Hg] ALANIS NINA [facility] 11-28-2022 09:00-0500 Heart rate 68 /min ALANIS NINA [facility] 11-28-2022 09:00-0500 Respiratory rate 16 /min ALANIS NINA [facility] 11-28-2022 09:00-0500 Systolic blood pressure 121 mm[Hg] ALANIS NINA [facility] 09-26-2022 09:33-0500 Body height 193.04 cm Dorothy E Ball Work Phone: [facility]Pwztyazssq[facility]Wgkus[facility] [place] 250 DO Work Phone: 09-26-2022 09:33-0500 Body mass index (BMI) [Ratio] 29.7 kg/m2 Dorothy E Ball Work Phone: ZP[facility]Aoazrswnro-Gqpgce [place] 250 DO Work Phone: 09-26-2022 09:33-0500 Body surface area Derived from formula 2.41 m2 Dorothy Bustillo Ball Work Phone: TO-Omhyzifyqz-Iejsyo [place] 250 DO Work Phone: 09-26-2022 09:33-0500 Body weight 110.68 kg Dorothy E Ball Work Phone: CV-Oejibsodid-Xdffoe [place] 250 DO Work Phone: 09-26-2022 09:33-0500 Diastolic blood pressure 78 mm[Hg] Dorothy E Ball Work Phone: DN-Vxnfnwoobu-Uvwfud [place] 250 DO Work Phone: 09-26-2022 09:33-0500 Heart rate 76 /min Dorothy E Ball Work Phone: HY-Exoxzuamxb-Faylrp [place] 250 DO Work Phone: 09-26-2022 09:33-0500 Systolic blood pressure 120 mm[Hg] Dorothy E Ball Work Phone: FI-Qdjiwkzesu-Fkmmod [place] 250 DO Work Phone: 03-28-2022 13:43-0400 Body height 193.04 cm Dorothy E Ball Work Phone: [facility] 250 DO Work Phone: 03-28-2022 13:43-0400 Body mass index (BMI) [Ratio] 28.48 kg/m2 Dorothy Bustillo Ball Work Phone: [facility] 250 DO Work Phone: 03-28-2022 13:43-0400 Body surface area Derived from formula 2.37 m2 Dorothy Bustillo Ball Work Phone: [facility] [facility] 250 DO Work Phone: 03-28-2022 13:43-0400 Body weight 106.14 kg Dorothy E Ball Work Phone: [facility] 250 DO Work Phone: 03-28-2022 13:43-0400 Diastolic blood pressure 60 mm[Hg] Dorothy Bustillo Ball Work Phone: [facility] 250 DO Work Phone: 03-28-2022 13:43-0400 Heart rate 88 /min Dorothy Bustillo Ball Work Phone: [facility] 250 DO Work Phone: 03-28-2022 13:43-0400 Systolic blood pressure 100 mm[Hg] Dorothy Bustillo Ball Work Phone: [facility] 250 DO Work Phone: Encounters Encounter Date Encounter Type Care Provider Facility Start: 06-17-2025 End: 06-17-2025 Office outpatient visit 25 minutes Marisol Connors MD Work Phone: [facility] Comment on above: Arteriosclerosis of coronary artery; Essential hypertension; Dyslipidemia; Status post coronary angioplasty; BMI 28.0-28.9,adult; Former smoker Start: 06-02-2025 End: 06-02-2025 Bamboo flowscandelaria BOTELLO Work Phone: [facility] Start: 06-02-2025 End: 06-02-2025 Bamboo flowsheet Fatoumata BOTELLO Work Phone: [facility] Start: 06-02-2025 End: 06-02-2025 Office outpatient visit 25 minutes Fatoumata BOTELLO Work Phone: [facility] Comment on above: Acute pain of left k nee (Primary Dx); Acute pain of left shoulder; Arthritis of left knee; Impingement of left shoulder Start: 06-02-2025 End: 06-02-2025 ambulatory FATOUMATA MONTES Not Available Start: 05-29-2025 End: 05-29-2025 ambulatory Dorothy Hall DO Work Phone: [facility] Work Phone: Start: 05-29-2025 End: 05-29-2025 Patient encounter procedure Dorothy Hall DO -[facility] Work Phone: Start: 05-26-2025 End: 05-26-2025 ambulatory Dorothy Hall DO Work Phone: [facility] Work Phone: Start: 05-26-2025 End: 05-26-2025 Patient encounter procedure Ramírez Gao DO -[facility] [place] Work Phone: Start: 05-26-2025 ambulatory Chidi Mims Facility : [facility] Start: 05-18-2025 Non-patient / Non-visit Jillian Penn CHANNEL ACCOUNT MANAGER -[facility] Work Phone: Start: 05-01-2025 End: 05-26-2025 Telephone encounter Jr. Perry Garay DO Work Phone: [facility] Comment on above: Needs Premed for den nadia appt Start: 05-01-2025 End: 05-01-2025 ambulatory DOROTHY Iw[facility] Start: 04-30-2025 Non-patient / Non-visit Dorothy collins DO -[facility] [place] Work Phone: Start: 04-24-2025 ambulatory DOROTHY HALL [facility] Start: 04-22-2025 End: 04-29-2025 Evaluation and management of inpatient Evelio Albarran MD Work Phone: [facility] - GEN 9 Acute Start: 04-22-2025 End: 04-22-2025 Emergency department patient visit [facility] Start: 04-22-2025 Non-patient / Non-visit Vinny Gao MD -[facility] Work Phone: Start: 04-21-2025 Non-patient / Non-visit Vinny Gao MD -[facility] Work Phone: Start: 04-20-2025 Non-patient / Non-visit Haseeb Jackson DO -[facility] Work Phone: Start: 04-16-2025 Non-patient / Non-visit Jillian Penn CMA [facility] Work Phone: Start: 04-09-2025 Non-patient / Non-visit Dorothy collins DO -[facility] Work Phone: Start: 03-27-2025 End: 03-27-2025 ambulatory CARLOS OBRIEN Not Available Start: 03-26-2025 Non-patient / Non-visit Dorothy Carlos collins DO -[facility] [place] Work Phone: Start: 03-12-2025 Non-patient / Non-visit Dorothy Carlos collins DO -[facility] Work Phone: Start: 03-07-2025 ambulatory [facility] Start: 03-05-2025 ambulatory [facility] Start: 03-04-2025 End: 03-09-2025 Emergency department patient visit [facility] Start: 03-03-2025 ambulatory [facility] Start: 02-24-2025 End: 03-08-2025 Evaluation and management of inpatient Jadon Mccloud MD Facility:[facility] Start: 02-18-2025 End: 02-18-2025 ambulatory Anita Schmid MD Facility:[facility] Start: 02-16-2025 End: 02-16-[address] [facility] Work Phone: Start: 02-16-2025 End: 02-16-2025 Encounter for other preprocedural examination [facility] Start: 02-16-2025 End: 02-16-2025 Patient encounter procedure [facility] Work Phone: Start: 01-28-2025 End: 01-28-2025 Office outpatient visit 25 minutes Marisol Connors MD Work Phone: [facility] Comment on above: Pre-operative cardio vascular examination (Primary Dx); Arteriosclerosis of coronary artery; Essential hypertension; Dyslipidemia; Status post coronary angioplasty; Former smoker; BMI 34.0-34.9,adult; Obesity, Class I, BMI 30-34.9 Start: 01-28-2025 End: 01-28-2025 Patient encounter status Marisol Connors MD Work Phone: [facility] Work Phone: Start: 01-28-2025 End: 01-28-2025 ambulatory [facility] Ambulatory Start: 01-28-2025 End: 01-28-2025 Encounter for preprocedural cardiovascular examination [facility] Ambulatory Start: 01-26-2025 Non-patient / Non-visit [facility] Work Phone: Start: 11-12-2024 End: 11-12-2024 Hector Garay DO Work Phone: [facility] Start: 11-12-2024 End: 11-12-2024 Hector Garay DO Work Phone: [facility] Start: 11-12-2024 End: 11-12-2024 ambulatory PERRY CRUZ Not Available Start: 11-12-2024 End: 11-12-2024 Office outpatient visit 25 minutes Jr. Perry Garay DO Work Phone: [facility] Comment on above: Swelling of joint of right knee (Primary Dx); Right knee pain, unspecified chronicity Start: 11-12-2024 End: 11-12-2024 ambulatory PERRY CRUZANIC Not Available Start: 09-24-2024 End: 09-24-2024 ambulatory DOROTHY [place] Facility:[facility] Start: 09-24-2024 End: 09-24-2024 Patient encounter procedure Bert Huang [facility] Start: 08-27-2024 End: 08-27-2024 ambulatory DOROTHY HALL Facility:[facility] Start: 08-27-2024 End: 08-27-2024 Patient encounter procedure Stephenie Barrios [facility] Start: 08-19-2024 End: 08-19-2024 ambulatory Bert Huang Facility:[facility] Start: 08-19-2024 End: 08-19-2024 Pain Management Bert Huang [facility] Start: 08-14-2024 End: 08-14-2024 Bamboo flowsheet Chauncey Aldrich PT Work Phone: [facility] Start: 08-14-2024 End: 08-14-2024 Bamboo flowsheet Chauncey Aldrich PT Work Phone: [facility] Start: 08-14-2024 End: 08-14-2024 ambulatory Chauncey Aldrich PT Work Phone: [facility] Comment on above: Acute pain of left k nee (Primary Dx); Poor balance; History of fall; Difficulty walking; Leg weakness, bilateral; Foot drop, right foot Start: 08-12-2024 End: 08-12-2024 ambulatory Bert Huang Facility:[facility] Start: 08-12-2024 End: 08-12-2024 Patient encounter procedure Bert Huang [facility] Start: 08-11-2024 End: 08-12-2024 ambulatory Jenny Alvarenga [employer] [facility] Comment on above: Acute pain of left k nee (Primary Dx); Poor balance; History of fall; Difficulty walking; Leg weakness, bilateral; Foot drop, right foot; History of falling; Left hip impingement syndrome; Right hip impingement syndrome Start: 08-11-2024 End: 08-11-2024 Bamboo flowsheet Jenny Brink [employer] [facility] Start: 08-11-2024 End: 08-11-2024 Bamboo flowsheet Jenny Brink [employer] [facility] Start: 08-07-2024 End: 08-07-2024 Bamboo flowsheet Jenny Brink [employer] [facility] Start: 08-07-2024 End: 08-07-2024 Bamboo flowsheet Jenny Brink [employer] [facility] Start: 08-07-2024 End: 08-07-2024 ambulatory Jenny Alvarenga [employer] [facility] Comment on above: Acute pain of left k nee (Primary Dx); Poor balance; History of fall; Difficulty walking; Leg weakness, bilateral; Foot drop, right foot; History of falling; Left hip impingement syndrome; Right hip impingement syndrome Start: 08-05-2024 End: 08-05-2024 Bamboo flowsheet Jenny Brink [employer] [facility] Start: 08-05-2024 End: 08-05-2024 Bamboo flowsheet Jenny Alvarenga [employer] [facility] Start: 08-05-2024 End: 08-05-2024 ambulatory Jenny Alvarenga [employer] [facility] Comment on above: Acute pain of left k nee (Primary Dx); Poor balance; History of fall; Difficulty walking; Leg weakness, bilateral; Foot drop, right foot; History of falling; Left hip impingement syndrome; Right hip impingement syndrome Start: 07-31-2024 End: 07-31-2024 Bamboo flowsheet Maryse Gaspary [employer] [facility] Start: 07-31-2024 End: 07-31-2024 Bamboo flowsheet Maryse Valdesbley [employer] [facility] Start: 07-31-2024 End: 07-31-2024 ambulatory Maryse Gaspary [employer] [facility] Comment on above: Acute pain of left k nee (Primary Dx); Poor balance; History of fall; Difficulty walking; Leg weakness, bilateral; Foot drop, right foot; History of falling Start: 07-29-2024 End: 07-29-2024 Bamboo flowsheet Jenny Alvarenga [employer] [facility] Start: 07-29-2024 End: 07-29-2024 Bamboo flowsheet Jenny Alvarenga [employer] [facility] Start: 07-29-2024 End: 07-29-2024 ambulatory Jenny Alvarenga [employer] [facility] Comment on above: Acute pain of left k nee (Primary Dx); Poor balance; History of fall; Difficulty walking; Leg weakness, bilateral; Foot drop, right foot; History of falling; Left hip impingement syndrome; Right hip impingement syndrome Start: 07-24-2024 End: 07-24-2024 Bamboo flowsheet Jenny Alvarenga [employer] [facility] Start: 07-24-2024 End: 07-24-2024 Bamboo flowsheet Jenny Alvarenga [employer] [facility] Start: 07-24-2024 End: 07-24-2024 ambulatory Jenny Alvarenga [employer] [facility] Comment on above: Acute pain of left k nee (Primary Dx); History of fall; Poor balance; Difficulty walking; Leg weakness, bilateral; Foot drop, right foot; History of falling; Left hip impingement syndrome; Right hip impingement syndrome Start: 07-22-2024 End: 07-22-2024 Bamboo flowsheet Jenny Buiink [employer] [facility] Start: 07-22-2024 End: 07-22-2024 Bamboo flowsheet Jenny Alvarenga [employer] [facility] Start: 07-22-2024 End: 07-22-2024 ambulatory Jenny Alvarenga [employer] [facility] Comment on above: Acute pain of left k nee (Primary Dx); History of fall; Poor balance; Difficulty walking; Leg weakness, bilateral; Foot drop, right foot; History of falling; Left hip impingement syndrome; Right hip impingement syndrome Start: 07-17-2024 End: 07-17-2024 Bamboo flowsheet Patti Ruben [employer] [facility] Start: 07-17-2024 End: 07-17-2024 Bamboo flowsheet Patti Miranda [employer] [facility] Start: 07-17-2024 End: 07-17-2024 ambulatory Patti Miranda [employer] [facility] Comment on above: Acute pain of left k nee (Primary Dx); History of fall; Poor balance; Leg weakness, bilateral Start: 07-15-2024 End: 07-15-2024 Bamboo flowsheet Ramírez Paez DO Work Phone: [employer] [facility] Start: 07-15-2024 End: 07-15-2024 Bamboo flowsheet Ramírez Paez DO Work Phone: [employer] [facility] Start: 07-15-2024 End: 07-15-2024 Office outpatient new 45 minutes Ramírez Paez DO Work Phone: [employer] [facility] Comment on above: Multilevel degenerat michelle disc disease (Primary Dx); Hypophonia Start: 07-15-2024 End: 07-15-2024 ambulatory Jenny Alvarenga [employer] [facility] Comment on above: Acute pain of left k nee (Primary Dx); History of fall; Poor balance; Leg weakness, bilateral; Difficulty walking; Foot drop, right foot; History of falling; Left hip impingement syndrome; Right hip impingement syndrome Start: 07-10-2024 End: 07-10-2024 Bamboo flowsheet Jenny Buiink [employer] [facility] Start: 07-10-2024 End: 07-10-2024 Bamboo flowsheet Jenny Brink [employer] [facility] Start: 07-10-2024 End: 07-10-2024 ambulatory Jenny Buiink [employer] [facility] Comment on above: Acute pain of left k nee (Primary Dx); History of fall; Poor balance; Leg weakness, bilateral; Difficulty walking; Foot drop, right foot; History of falling; Left hip impingement syndrome; Right hip impingement syndrome Start: 07-08-2024 End: 07-08-2024 Bamboo flowsheet Jenny Brink [employer] [facility] Start: 07-08-2024 End: 07-08-2024 Bamboo flowsheet Jenny Brink [employer] [facility] Start: 07-08-2024 End: 07-08-2024 Telephone encounter Jr. Perry Garay DO Work Phone: [facility] Comment on above: Dentist Start: 07-08-2024 End: 07-08-2024 ambulatory Jenny Alvarenga [employer] [facility] Comment on above: Acute pain of left k nee (Primary Dx); History of fall; Poor balance; Foot drop, right foot; Difficulty walking; Leg weakness, bilateral; History of falling; Left hip impingement syndrome; Right hip impingement syndrome Start: 07-03-2024 End: 07-03-2024 Bamboo flowsheet Patti Miranda [employer] [facility] Start: 07-03-2024 End: 07-03-2024 Bamboo flowsheet Patti Miranda [employer] [facility] Start: 07-03-2024 End: 07-03-2024 ambulatory Patti Miranda [employer] [facility] Comment on above: Acute pain of left k nee (Primary Dx); History of fall; Poor balance; Foot drop, right foot Start: 07-02-2024 End: 07-02-2024 ambulatory Stephenie Barrios Facility:[facility] Start: 07-02-2024 End: 07-02-2024 Pain Management Stephenie Barrios [facility] Start: 06-24-2024 End: 06-24-2024 ambulatory Bert Huang Facility:[facility] Start: 06-24-2024 End: 06-24-2024 Pain Management Bert Huang [facility] Start: 06-23-2024 End: 06-23-2024 ambulatory MERLIN GERBER Not Available Start: 06-19-2024 End: 06-19-2024 ambulatory JENNY ALVARENGA Not Available Start: 06-17-2024 End: 06-17-2024 Patient encounter procedure Bert Huang [facility] Start: 06-17-2024 End: 06-17-2024 ambulatory Bert Huang Facility:[facility] Start: 06-17-2024 End: 06-17-2024 Pain Management Bert Huang [facility] Start: 06-17-2024 End: 06-17-2024 ambulatory JENNY COLETTE Not Available Start: 06-13-2024 End: 06-13-[address] [facility] Work Phone: Start: 06-13-2024 End: 06-13-2024 Patient encounter procedure [facility] Work Phone: Start: 06-12-2024 End: 06-12-2024 ambulatory ALANIS WOOD Facility:[facility] Start: 06-12-2024 End: 06-12-2024 Patient encounter procedure ALANIS WOOD [facility] Start: 06-10-2024 End: 06-10-2024 ambulatory JENNY ALVARENGA Not Available Start: 05-22-2024 End: 05-22-2024 Office outpatient visit 25 minutes Marisol Connors MD Work Phone: [facility] Comment on above: Arteriosclerosis of coronary artery (Primary Dx); Essential hypertension; Dyslipidemia; Status post coronary angioplasty; BMI 31.0-31.9,adult; Former smoker; At risk for falls; Idiopathic peripheral neuropathy Start: 05-22-2024 End: 05-22-2024 [facility] Start: 05-07-2024 End: 05-07-[address] [facility] Work Phone: Start: 05-07-2024 End: 05-07-2024 Patient encounter procedure [facility] Work Phone: Start: 05-02-2024 End: 05-02-2024 ambulatory DOROTHY HALL Facility:[facility] Start: 05-02-2024 End: 05-02-2024 Pain Management Stephenie Barrios [facility] Start: 04-29-2024 Non-patient / Non-visit [facility] Work Phone: Start: 04-28-2024 End: 04-28-[address] [facility] Work Phone: Start: 04-28-2024 End: 04-28-2024 Patient encounter procedure [facility] Work Phone: Start: 03-14-2024 End: 03-14-2024 ambulatory PA-C Stephenie Barrios Facility:[facility] Start: 03-14-2024 End: 03-14-2024 Pain Management Stephenie Barrios [facility] Start: 01-25-2024 End: 01-25-2024 ambulatory PA-C Stephenie Barrios Facility:[facility] Start: 01-25-2024 End: 01-25-2024 Pain Management Stephenie Barrios [facility] Start: 01-18-2024 End: 01-18-[address] [facility] Work Phone: Start: 01-18-2024 End: 01-18-2024 Patient encounter procedure [facility] Work Phone: Start: 01-09-2024 End: 01-09-2024 ambulatory Bert Huang Facility:[facility] Start: 01-09-2024 End: 01-09-2024 Pain Management Bert Huang [facility] Start: 12-31-2023 End: 12-31-[address] [facility] Work Phone: Start: 12-31-2023 End: 12-31-2023 Patient encounter procedure [facility] Work Phone: Start: 12-24-2023 Non-patient / Non-visit [facility] Work Phone: Start: 12-14-2023 End: 12-14-2023 ambulatory Homero Frank DUC Facility:[facility] Start: 12-14-2023 End: 12-14-2023 Patient encounter procedure Homero Frank DUC [facility] Start: 12-11-2023 End: 12-11-2023 ambulatory ALANIS WOOD Facility:[facility] Start: 12-10-2023 End: 12-10-2023 ambulatory PA-C Stephenie Barrios Facility:[facility] Start: 12-10-2023 End: 12-10-2023 Pain Management Stephenie Barrios [facility] Start: 11-28-2023 End: 11-28-2023 ambulatory Dorothy Hall Other [employer] Other Start: 11-28-2023 Telephone encounter Dorothy Hall [facility] Start: 11-14-2023 End: 11-14-2023 Office outpatient visit 25 minutes Marisol Connors MD Work Phone: [facility] Comment on above: Arteriosclerosis of coronary artery (Primary Dx); Status post coronary angioplasty; Dyslipidemia; Essential hypertension; Obesity (BMI 30.0-34.9); At risk for falls Start: 11-09-2023 End: 11-09-2023 ambulatory PA-C Stephenie Barrios Facility:[facility] Start: 11-09-2023 End: 11-09-2023 Pain Management Stephenie Barrios [facility] Start: 10-23-2023 End: 10-23-2023 ambulatory Dorothy Hall Other [employer] Other Start: 10-23-2023 Office outpatient vi sit 25 minutes Dorothy Hall [facility] Start: 10-23-2023 End: 10-23-2023 Patient encounter procedure [facility] Work Phone: Start: 10-08-2023 End: 10-08-2023 ambulatory Bib D Laura Facility:[facility] Start: 10-08-2023 End: 10-08-2023 Pain Management Bib D Laura [facility] Start: 09-14-2023 End: 09-14-2023 ambulatory DOROTHY HALL Facility:[facility] Start: 09-14-2023 End: 09-14-2023 Pain Management Stephenie Barrios [facility] Start: 09-04-2023 End: 09-04-2023 ambulatory Bib D Laura Facility:[facility] Start: 08-28-2023 End: 08-28-2023 ambulatory Bib D Laura Facility:[facility] Start: 08-07-2023 End: 08-07-2023 ambulatory Bib D Laura Facility:[facility] Start: 08-07-2023 End: 08-07-2023 Pain Management Bib D Laura [facility] Start: 05-11-2023 End: 05-11-2023 Pain Management Stephenie Barrios [facility] Start: 05-03-2023 End: 05-03-2023 ambulatory Dorothy Hall Other [employer] Other Start: 05-03-2023 Telephone encounter Dorothy COLE [facility] Start: 05-01-2023 End: 05-01-2023 ambulatory Dorothy Hall Other [employer] Other Start: 05-01-2023 Telephone encounter Dorothy COLE [facility] Start: 05-01-2023 End: 05-01-2023 Pain Management Bib Sanchez [facility] Start: 04-30-2023 End: 04-30-2023 ambulatory Dorothy Hall Other [facility] [employer] Other Start: 04-30-2023 Patient encounter procedure Dorothy Hall [facility] Rafael [facility] Start: 03-19-2023 End: 03-19-2023 Pain Management Stepheniejakob Barrios [facility] Start: 03-14-2023 End: 03-15-[address] MARISOL CONNORS Facility:[facility] Start: 03-12-2023 End: 03-13-[address] MARISOL CONNORS Facility:[facility] Start: 03-12-2023 End: 03-12-2023 Pain Management Bib Sanchez [facility] Start: 03-08-2023 FUV, Provider: Marisol Connors, Status: Pen, Time: 9:50 AM Dorothy Hall Work Phone: [facility] 250 DO Work Phone: Start: 03-08-2023 Office outpatient vi sit 25 minutes Dorothy Hall Work Phone: [facility] 250 DO Work Phone: Start: 03-08-2023 ambulatory Marisol Connors Facility :[id number] Start: 03-06-2023 Rx Renewal Dorothy Gonzalez l Work Phone: [facility] 250 DO Work Phone: Start: 02-21-2023 End: 02-21-2023 ambulatory Allison Kenyon Other [facility] [employer] Other Start: 02-21-2023 Office outpatient vi sit 15 minutes Allison Blades [facility] Start: 01-10-2023 End: 03-02-[address] DOCTOR PLUMMER Facility:[facility] Start: 01-01-2023 End: 01-01-2023 ambulatory LUDWIN LEMON Other [facility] Other Start: 01-01-2023 Office outpatient ne w 45 minutes LUDWIN LEMON [facility] Start: 11-29-2022 End: 11-29-2022 ambulatory Allison Blades Other [facility] [employer] Other Start: 11-29-2022 Office outpatient ne w 45 minutes Allison Blades [facility] Start: 11-29-2022 Telephone encounter Allison Kenyon [employer] Start: 11-28-2022 End: 11-28-2022 Patient encounter procedure ALANIS WOOD [facility] Start: 11-15-2022 End: 11-15-2022 ambulatory Dorothy Hall Other [facility] [employer] Other Start: 11-15-2022 Telephone encounter Dorothy Hall [facility] Start: 11-14-2022 End: 11-15-[address] DOROTHY HALL Facility:[facility] Start: 10-11-2022 Rx Renewal Dorothy collins Work Phone: [facility] 250 DO Work Phone: Start: 09-26-2022 Office outpatient vi sit 25 minutes Dorothy Hall Work Phone: [facility] 250 DO Work Phone: Start: 09-26-2022 ambulatory Marisol Connors Facility : Start: 05-30-2022 End: 05-30-2022 Patient encounter procedure Goldy Alberto Jr. [facility] Start: 05-11-2022 End: 05-11-2022 Patient encounter procedure Goldy Alberto Jr. [facility] Start: 05-09-2022 End: 05-09-2022 Patient encounter procedure Goldy Alberto Jr. [facility] Start: 04-25-2022 End: 04-25-2022 Emergency department patient visit Dr. Dorothy Hall Facility:[facility] Start: 04-07-2022 End: 04-08-[address] MARISOL CONNORS Facility: Start: 03-28-2022 Office outpatient vi sit 25 minutes Dorothy Hall Work Phone: [facility] 250 DO Work Phone: Start: 03-28-2022 ambulatory Marisol Connors Facility :[id number] Start: 03-06-2022 Rx Renewal Marisol Connors MD Work Phone: [facility] 250 DO Work Phone: Start: 09-26-2021 Rx Renewal Marisol Connors MD Work Phone: [facility] 250 DO Work Phone: Start: 09-22-2021 Rx Renewal Marisol Connors MD [facility] Work Phone: Start: 04-11-2018 End: 04-13-2018 Evaluation and management of inpatient DOROTHY HALL [facility] Start: 04-10-2018 Ambulatory [facility] Start: 04-10-2018 End: 04-15-2018 Ambulatory [facility] Procedures Date Procedure Procedure Detail Performing Clinician Start: 06-02-2025 End: 06-02-2025 Arthrocentesis aspir&/inj major jt/bursa w/o us Fatoumata BOTELLO Work Phone: Start: 06-02-2025 End: 06-02-2025 Radex shoulder complete minimum 2 views Fatoumata BOTELLO Work Phone: Start: 04-29-2025 Basic metabolic pane l calcium total Mikie Mcleod MD Work Phone: Start: 04-28-2025 Basic metabolic pane l calcium total Mikie Mcleod MD Work Phone: Start: 04-27-2025 Potassium serum plas ma/whole blood [facility] Work Phone: Start: 04-27-2025 End: 04-27-2025 Basic metabolic panel calcium total Mikie Mcleod MD Work Phone: Start: 04-27-2025 EXTRA TUBES Mikie gutierrez MD Work Phone: Start: 04-27-2025 EXTRA TUBES PST TOP Rya gray Mcleod MD Work Phone: Start: 04-26-2025 Basic metabolic pane l calcium total Mikie Mcleod MD Work Phone: Start: 04-25-2025 Basic metabolic pane l calcium total Mikie Mcleod MD Work Phone: Start: 04-24-2025 Radiologic exam swal low function contrast study Florentino Tran MD Work Phone: Start: 04-23-2025 Urnls dip stick/tabl et rgnt auto w/o microscopy Mikie Mcleod MD Work Phone: Start: 04-23-2025 EEG VIDEO MONITORING Ayan Melendez MD Work Phone: Start: 04-23-2025 DISCONTINUE IN PROCE SS EEG TESTING Latonya Goodrich MD Work Phone: Start: 04-23-2025 Assay of ammonia Latonya Goodrich MD Work Phone: Start: 04-23-2025 Fluoroscopy up to 1 hour physician/qhp time Florentino Tran MD Work Phone: Start: 04-23-2025 EEG VIDEO MONITORING Ayan Melendez MD Work Phone: Start: 04-23-2025 EEG Radha Melendez MD Work Phone: Start: 04-23-2025 Comprehensive metabo lic panel Florentino Tran MD Work Phone: Start: 04-23-2025 PULSE OXIMETRY, SPOT Ab daivna Tran MD Work Phone: Start: 01-28-2025 Ecg routine ecg w/le ast 12 lds w/i&r Marisol Connors MD Work Phone: Start: 11-12-2024 Radiologic examinati on knee 1/2 views Jr. Perry Garay DO Work Phone: Start: 08-19-2024 Local anesthetic sac ral epidural block [employer] Comment on above: 60% relief Start: 06-24-2024 Epidural insertion o f temporary spinal cord stimulator electrode [employer] Comment on above: 60% relief Start: 01-09-2024 Injection of sacroil iac joint using fluoroscopic guidance [employer] Comment on above: 90% relief for 4 hrs Start: 10-08-2023 Radiofrequency ablat ion of nerve root of lumbar spine using fluoroscopic guidance [employer] Comment on above: Bilateral L3/4+L4/5- no relief Start: 09-04-2023 Injection of facet j oint using fluoroscopic guidance [employer] Comment on above: Bilateral L3/4, L4/5 MBB-80% relief for 1 day Start: 08-07-2023 Injection of facet j oint using fluoroscopic guidance [employer] Comment on above: BL L3/L4 L4/L5 MBB 8 5% Relief x 4 hours Start: 05-29-2023 Local anesthetic sac ral epidural block [facility] Comment on above: Caudal john 50% relie f Start: 05-01-2023 Injection of facet j oint using fluoroscopic guidance [facility] [employer] Comment on above: bilateral 75% relief for 2 hours Start: 03-12-2023 Injection of facet j oint using fluoroscopic guidance [email or web address] Comment on above: pt changed amt of re lief to 80% x 4 hr. bilat L3/4 MBB- 50% relief x 4 hr Start: 05-11-2022 Injection of therape utic substance into bladder wall ALANIS WOOD Start: 02-07-2021 Blepharoplasty Goldy shelley Jr. Start: 12-02-2020 Cystourethroscopy wi th dilation of urethral stricture Goldy Alberto Jr. Start: 11-02-2020 Cataract extraction and insertion of intraocular lens Goldy Alberto Jr. Start: 04-28-2020 Transurethral prostatectomy Goldy Alberto Jr. 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 Start: 10-16-2019 back surgery 1 Goldy shelley Jr. 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 Start: 11-05-2018 History of placement of stent for coronary artery disease H/O heart artery stent Comment on above: PCI/stent RCA Start: 04-13-2018 INCENTIVE SPIROMETRY RT ANG AJ Start: 04-13-2018 END TIDAL CO2 CONTINUOUS ANG AJ Start: 04-13-2018 INCENTIVE SPIROMETRY RT ANG AJ Start: 04-13-2018 INITIATE OXYGEN THER APY PROTOCOL ANG AJ Start: 04-13-2018 PULSE OXIMETRY, CONTINUOUS ANG AJ Start: 04-13-2018 DISCHARGE PATIENT ANG YO O Start: 04-13-2018 INCENTIVE SPIROMETRY RT ANG AJ Start: 04-13-2018 END TIDAL CO2 CONTINUOUS ANG AJ Start: 04-13-2018 PULSE OXIMETRY, CONTINUOUS ANG AJ Start: 04-13-2018 INTAKE AND OUTPUT ANG YO O Start: 04-13-2018 END TIDAL CO2 CONTINUOUS ANG AJ Start: 04-13-2018 PULSE OXIMETRY, CONTINUOUS ANG AJ Start: 04-13-2018 INCENTIVE SPIROMETRY RT ANG AJ Start: 04-12-2018 END TIDAL CO2 CONTINUOUS ANG AJ Start: 04-12-2018 PULSE OXIMETRY, CONTINUOUS ANG AJ Start: 04-12-2018 INCENTIVE SPIROMETRY RT ANG AJ Start: 04-12-2018 INCENTIVE SPIROMETRY RT ANG AJ Start: 04-12-2018 END TIDAL CO2 CONTINUOUS ANG AJ Start: 04-12-2018 INCENTIVE SPIROMETRY RT ANG AJ Start: 04-12-2018 PULSE OXIMETRY, CONTINUOUS ANG AJ Start: 04-12-2018 INCENTIVE SPIROMETRY RT NAG AJ Start: 04-12-2018 Radex spine lumbosac ral 2/3 views ANG AJ Start: 04-12-2018 END TIDAL CO2 CONTINUOUS ANG AJ Start: 04-12-2018 INCENTIVE SPIROMETRY RT ANG AJ Start: 04-12-2018 PULSE OXIMETRY, CONTINUOUS ANG AJ Start: 04-12-2018 INCENTIVE SPIROMETRY RT ANG AJ Start: 04-12-2018 END TIDAL CO2 CONTINUOUS ANG AJ Start: 04-12-2018 INCENTIVE SPIROMETRY RT ANG AJ Start: 04-12-2018 INITIATE OXYGEN THER APY PROTOCOL ANG AJ Start: 04-12-2018 PULSE OXIMETRY, CONTINUOUS ANG AJ Start: 04-12-2018 DME ORDER FOR WALKER OP ANG AJ Start: 04-12-2018 INCENTIVE SPIROMETRY RT ANG AJ Start: 04-12-2018 Blood count complete auto&auto difrntl wbc ANG AJ Start: 04-12-2018 END TIDAL CO2 CONTINUOUS ANG AJ Start: 04-12-2018 PULSE OXIMETRY, CONTINUOUS ANG AJ Start: 04-12-2018 BASIC METABOLIC PANE L W/ REFLEX TO MG FOR LOW K ANG AJ Start: 04-12-2018 CATHETER REMOVAL ANG AJ Start: 04-12-2018 DAILY WEIGHTS ANG AJ Start: 04-12-2018 INTAKE AND OUTPUT ANG YO O Start: 04-12-2018 OT EVAL AND TREAT ANG YO O Start: 04-12-2018 PT EVAL AND TREAT ANG YO O Start: 04-12-2018 ACTIVITY TOLERATED B O AJ Start: 04-12-2018 AMBULATE PATIENT ANG AJ Start: 04-12-2018 END TIDAL CO2 CONTINUOUS ANG AJ Start: 04-12-2018 PULSE OXIMETRY, CONTINUOUS ANG AJ Start: 04-12-2018 INCENTIVE SPIROMETRY RT ANG AJ Start: 04-11-2018 END TIDAL CO2 CONTINUOUS ANG AJ Start: 04-11-2018 INCENTIVE SPIROMETRY RT ANG AJ Start: 04-11-2018 PULSE OXIMETRY, CONTINUOUS ANG AJ Start: 04-11-2018 INCENTIVE SPIROMETRY RT ANG AJ Start: 04-11-2018 DIET GENERAL ANG AJ Start: 04-11-2018 END TIDAL CO2 CONTINUOUS ANG AJ Start: 04-11-2018 INCENTIVE SPIROMETRY RT ANG AJ Start: 04-11-2018 PULSE OXIMETRY, CONTINUOUS ANG AJ Start: 04-11-2018 END TIDAL CO2 CONTINUOUS ANG AJ Start: 04-11-2018 ASSESS ANG AJ Start: 04-11-2018 IP CONSULT TO SOCIAL WORK ANG AJ Start: 04-11-2018 MAINTAIN IV ACCESS ANG Y OO Start: 04-11-2018 NURSING COMMUNICATION B O AJ Start: 04-11-2018 PLACE INTERMITTENT P NEUMATIC COMPRESSION DEVICE ANG AJ Start: 04-11-2018 CONTINUE INDWELLING CATHETHER ANG AJ Start: 04-11-2018 INCENTIVE SPIROMETRY RT ANG AJ Start: 04-11-2018 INITIATE OXYGEN THER APY PROTOCOL ANG AJ Start: 04-11-2018 NEURO/VASCULAR CHECKS B O AJ Start: 04-11-2018 PULSE OXIMETRY, CONTINUOUS ANG AJ Start: 04-11-2018 TOBACCO CESSATION EDUCATION ANG AJ Start: 04-11-2018 WOUND CARE ANG AJ Start: 04-11-2018 ADVANCE DIET SACHI ALFARO (NURSING COMMUNICATION) ANG AJ Start: 04-11-2018 ELEVATE HOB ANG AJ Start: 04-11-2018 FULL CODE ANG AJ Start: 04-11-2018 INTAKE AND OUTPUT ANG YO O Start: 04-11-2018 NOTIFY PHYSICIAN (SPECIFY) ANG AJ Start: 04-11-2018 VITAL SIGNS ANG AJ Start: 04-11-2018 TELEMETRY MONITORING ANG AJ Start: 04-11-2018 BASIC METABOLIC PANE L W/ REFLEX TO MG FOR LOW K ANG AJ Start: 04-11-2018 Blood count complete automated ANG AJ Start: 04-11-2018 PATIENT STATUS (FROM ED OR OR/PROCEDURAL) ANG AJ Start: 04-11-2018 TRANSFER PATIENT ANG AJ Start: 04-11-2018 FLUORO FOR SURGICAL PROCEDURES ANG AJ Start: 04-11-2018 SURGICAL PATHOLOGY ANG Y OO Start: 04-10-2018 Basic metabolic pane l calcium total ANG AJ Start: 04-10-2018 Prothrombin time ANG AJ Start: 04-10-2018 TYPE AND SCREEN ANG AJ Start: 04-10-2018 Blood count complete automated ANG AJ Start: 04-10-2018 URINE RT REFLEX TO CULTURE ANG AJ Start: 04-10-2018 Cul prsmptv pthgnc o rganism scrn w/colony estimj ANG AJ Start: 04-10-2018 Radex entir thrc lmb r crv sac spi w/skull 2/3 vw ANG AJ Start: 04-10-2018 EKG 12-LEAD ANG AJ Start: 11-05-2017 inguinal hernia repair Goldy Alberto [...] Ronny Connors MD Work Phone: Cataract surgery Dorothy Hall Work Phone: Extraction of cataract Memo [...] DTaP/Tdap/Td Vaccines (3 - Td or Tdap) [facility] Start: 11-08-2030 DTaP/Tdap/Td Vaccine s (2 - Tdap) DTaP/Tdap/Td Vaccines (2 - Tdap) [facility] Start: 01-28-2026 End: 01-28-2026 Patient encounter procedure 01/28/2026 9:30 AM EDT Office Visit [facility] [address] [facility] [address] [place] [address] Marisol Connors MD [address] [facility] [place] [address] [facility] Start: 11-11-2025 End: 11-11-2025 Patient encounter procedure [facility] Start: 09-04-2025 End: 09-04-2025 Patient encounter procedure [facility] Start: 07-06-2025 Influenza vaccination Influenza Vacc ine (#1) [facility] Start: 06-17-2025 End: 06-17-2026 Lipid 1996 panel - Serum or Plasma Lipid Panel Lab Routine Arteriosclerosis of coronary artery Dyslipidemia Expected: 06/17/2025 (Approximate), Expires: 06/17/2026 [facility] Service Area Work Phone: Comment on above: Expected: 06/17/2025 (Approximate), Expires: 06/17/2026 Start: 06-17-2025 End: 06-17-2025 Patient encounter procedure 06/17/2025 9:30 AM EDT Office Visit [address] [place] [address] Marisol Connors MD [address] [facility] [address] [place] [address] [facility] Start: 06-02-2025 End: 06-02-2025 Patient encounter procedure 06/02/2025 9:45 AM EDT Office Visit [facility] [address] [place] [address] Fatoumata Montes PA [address] [place] [address] Acute pain of left knee (Primary Dx) [facility] Comment on above: Acute pain of left k nee (Primary Dx) Start: 04-29-2025 Medicare Annual Wellness Visit Medicare Annual Wellness Visit (AWV) [facility] Start: 11-12-2024 End: 11-12-2024 Patient encounter procedure [...] Treatment [facility] [address] [facility] [address] [place] [address] Jenny Alvarenga [employer] [facility] Start: 08-05-2024 End: 08-05-2024 ambulatory 08/05/2024 10:00 AM EDT Treatment [facility] [address] [facility] [address] [place] [address] Jenny Alvarenga [employer] [facility] Start: 07-31-2024 End: 07-31-2024 ambulatory 07/31/2024 11:00 AM EDT Treatment [facility] [address] [place] [address] Maryse Evans, [employer] [facility] Start: 07-29-2024 End: 07-29-2024 ambulatory 07/29/2024 10:00 AM EDT Treatment [facility] [address] [place] [address] Jenny Alvarenga, [employer] [facility] Start: 07-24-2024 End: 07-24-2024 ambulatory 07/24/2024 10:00 AM EDT Treatment [facility] [address] [place] [address] Jenny Alvarenga, [employer] [facility] Start: 07-22-2024 End: 07-22-2024 [...] 07-15-2024 End: 07-15-2024 Patient encounter procedure [facility] Comment on above: Arrived Start: 07-10-2024 End: 07-10-2024 ambulatory 07/10/2024 9:00 AM EDT Treatment [facility] [address] [facility] [address] [place] [address] Jenny Alvarenga PTA [facility] Start: 07-08-2024 End: 07-08-2024 ambulatory [facility] Comment on above: Arrived Start: 07-06-2024 COVID-19 Vaccine ( season) COVID-19 Vaccine () [facility] Start: 07-06-2024 Influenza vaccination Influenza Vacc ine (#1) [facility] Start: 05-22-2024 End: 05-22-2024 Patient encounter procedure 05/22/2024 9:50 AM EDT Office Visit [facility] [address] [address] Marisol Connors MD [address] [facility], [facility] [address] [place] [address] [facility] Start: 09-18-2023 FUV, Provider: Marisol Connors, Status: Pen, Time: 9:50 AM FUV, Provider: Marisol Connors, Status: Pen, Time: 9:50 AM [place] [address] DO Work Phone: Start: 07-06-2023 COVID-19 Vaccine () COVID-19 Vaccine () [facility] Start: 03-08-2023 FUV, Provider: Marisol Connors, Status: Pen, Time: 9:50 AM FUV, Provider: Marisol Connors, Status: Pen, Time: 9:50 AM [facility] [address] DO Work Phone: Start: 10-22-2022 COVID-19 Vaccine (4 - Pfizer series) COVID-19 Vaccine (4 - Pfizer series) [facility] Start: 09-26-2022 FUV, Provider: Marisol Connors, Status: Pen, Time: 9:40 AM FUV, Provider: Marisol Connors, Status: Pen, Time: 9:40 AM MP-[facility] 250 DO Work Phone: Start: 03-28-2022 FUV, Provider: Marisol Connors, Status: Pen, Time: 1:20 PM FUV, Provider: Marisol Connors, Status: Pen, Time: 1:20 PM -[facility] 250 DO Work Phone: Start: 12-15-2021 FUV, Provider: Marisol Connors, Status: Pen, Time: 10:30 AM FUV, Provider: Marisol Connors, Status: Pen, Time: 10:30 AM -[facility] 250 DO Work Phone: Start: 2021 RSV High Risk: (Elderly (60+) or Population) (1 - 1-dose 75+ series) RSV High Risk: (Elderly (60+) or Population) (1 - 1-dose 75+ series) [facility] Start: 07-27-2021 Diabetes mellitus screening Diabetes Screening [facility] Start: 2006 RSV patient s and/or patients aged 60+ years (1 - 1-dose 60+ series) RSV patients and/or patients aged 60+ years (1 - 1-dose 60+ series) [facility] Start: 1996 Zoster Vaccines (1 o f 2) Zoster Vaccines (1 of 2) [facility] Start: 1964 Hepatitis C screening Hepatitis C Sc claude [facility] Start: 1946 Lipid panel Lipid Panel [facility] Start: 1946 Medicare Annual Wellness Visit Medicare Annual Wellness Visit (AWV) [facility] Comprehensive metabolic 2000 panel - Serum or Plasma [facility] Immunizations Immunization Date Immunization Notes Care Provider Fa ciliantonio 10-24-2024 influenza, high dose seasonal, preservative-free [facility] 10-24-2024 influenza virus vaccine, unspecified formulation Jr. Garay DO Work Phone: [facility] 08-20-2023 influenza virus vaccine, unspecified formulation Homero DUC [facility] 08-27-2022 Pfizer COVID-19 Vac Bivalent 30 MCG/0.3ML Intramuscular Suspension Dorothy Hall Work Phone: [facility] 08-14-2022 Fluzone High-Dose Quadrivalent 0.7 ML Intramuscular Suspension Prefilled Syringe Dorothy Iwona Hall [facility] DO Work Phone: 08-14-2022 influenza virus vaccine, unspecified formulation ALANISKATT VERDUGORY [facility] 08-14-2022 influenza, high dose seasonal, preservative-free Dorothy Hall Other [facility] [employer] Other 10-03-2021 Pfizer-BioNTech COVID-19 Vacc 30 MCG/0.3ML Intramuscular Suspension Dorothy E Rafael Work Phone: [facility] 10-03-2021 SARS-CoV-2 (COVID-19 ) Ad26 vaccine, recombinant Goldy Alberto Jr. [facility] 07-01-2021 Fluzone High-Dose Quadrivalent 0.7 ML Intramuscular Suspension Prefilled Syringe Dorothy Hall Work Phone: [facility] 07-01-2021 influenza virus vaccine, unspecified formulation ALANIS WOOD [facility] 06-05-2021 influenza virus vaccine, unspecified formulation Goldy Alberto Jr. [facility] 01-25-2021 Pfizer-BioNTech COVID-19 Vacc 30 MCG/0.3ML Intramuscular Suspension Marisol Connors MD Work Phone: [facility] 01-25-2021 SARS-CoV-2 (COVID-19 ) Ad26 vaccine, recombinant Goldy Alberto Jr. [facility] 01-03-2021 COVID-19 Vaccine Pfi zer - Documentation Purposes Only Dorothy Hall Other [facility] 01-03-2021 SARS-CoV-2 (COVID-19 ) mRNA-1273 vaccine Goldy Alberto Jr. [facility] 12-28-2020 Pfizer-BioNTech COVID-19 Vacc 30 MCG/0.3ML Intramuscular Suspension Dorothy Hall Work Phone: [facility] 11-08-2020 diphtheria, tetanus toxoids and pertussis vaccine Dorothy Hall Work Phone: [facility] 250 DO Work Phone: 07-06-2020 influenza virus vaccine, unspecified formulation Marisol Connors MD Work Phone: [facility] 07-02-2020 influenza virus vaccine, unspecified formulation ALANIS WOOD [facility] 08-19-2018 influenza virus vaccine, unspecified formulation ALANIS WOOD [facility] 08-19-2018 Seasonal trivalent influenza vaccine, adjuvanted, preservative free Dorothy E Ball Work Phone: [place] [address] DO Work Phone: 07-06-2018 influenza virus vaccine, unspecified formulation Marisol Connors MD Work Phone: [place] [address] DO Work Phone: 08-24-2017 pneumococcal conjuga te vaccine, 13 valent Dorothy E Ball Work Phone: [facility] 08-17-2017 influenza virus vaccine, unspecified formulation ALANIS WOOD [facility] 08-17-2017 influenza, high dose seasonal, preservative-free Dorothy E Ball Work Phone: [place] [address] DO Work Phone: 08-17-2017 influenza, injectabl e, quadrivalent, preservative free Patti Miranda [facility] 11-05-2016 pneumococcal polysaccharide vaccine, 23 valent Marisol Connors MD Work Phone: [place] [address] DO Work Phone: 08-11-2016 influenza virus vaccine, unspecified formulation ALANIS WOOD [facility] 08-05-2016 influenza virus vaccine, unspecified formulation ALANIS NINA [facility] 08-05-2016 influenza, injectabl e, quadrivalent, preservative free Dorothy E Ball Work Phone: [facility] 07-06-2014 pneumococcal polysaccharide vaccine, 23 valent Dorothy E Ball Work Phone: [facility] Payers Date Payer Category Payer Private Health Insurance 2023 Medicaid [employer] MEDICARE A DVANTAGE [id number] 2021 Medicare [id number] 2021 Medicare (Managed Care) [employer] [place] DICARE ASSURE [id number] 2021 Medicare HMO [employer] MEDICARE [id number] 2017 Medicare [id number] 1959 Medicare [id number] 2.16.840.1.954363.19 1946 Unknown [id number] 2.16.840.1.331589.3.579.2. 356 1946 Unknown [id number] 2.16.840.1.461870.3.579.2. 356 1946 Unknown [id number] 2.16.840.1.669411.3.579.2. 356 1946 Unknown [id number] 2.16.840.1.642964.3.579.2. 356 1946 Unknown [id number] 2.16.840.1.827550.3.579.2. 593 1946 Unknown [id number] 2.16.840.1.464310.3.579.2. 593 1946 Unknown [id number] 2.16.840.1.641707.3.579.2. 593 1946 Unknown [id number] 2.16.840.1.005168.3.579.2. 593 1946 Unknown [id number] 2.16.840.1.983919.3.579.2. 593 1946 Unknown [id number] 2.16.840.1.957757.3.579.2. 727 1946 Unknown [id number] 2.16.840.1.462258.3.579.2. 727 1946 Unknown [id number] 2.16.840.1.167867.3.579.2. 727 1946 Unknown [id number] 2.16.840.1.621163.3.579.2. 727 1946 Unknown [id number] 2.16.840.1.771506.3.579.2. 727 1946 Unknown [id number] 2.16.840.1.878144.3.579.2 1946 Unknown [id number] 2.16.840.1.556183.3.579.2 1946 Unknown [id number] 2.16.840.1.697981.3.579.2 1946 Unknown [id number] 2.16.840.1.896468.3.579.2 1946 Unknown [id number] 2.16.840.1.895404.3.579.2 1946 Unknown [id number] 2.16.840.1.716022.3.579.2 1946 Unknown [id number] 2.16.840.1.393563.3.579.2 1946 Unknown [id number] 2.16.840.1.515768.3.579.2 1946 Unknown [id number] 2.16.840.1.616503.3.579.2 1946 Unknown [id number] 2.16.840.1.156260.3.579.2 1946 Unknown [id number] 2.16.840.1.953866.3.579.2 1946 Unknown [id number] 2.16.840.1.246877.3.579.2 1946 Unknown [id number] 2.16.840.1.117730.3.579.2 1946 Unknown [id number] 2.16.840.1.515541.3.579.2 1946 Unknown [id number] 2.16.840.1.740333.3.579.2 1946 Unknown [id number] 2.16.840.1.613742.3.579.2. 727 1946 Unknown [id number] 2.16.840.1.233854.3.579.2. 727 1946 Unknown [id number] 2.16.840.1.103715.3.579.2. 727 1946 Unknown [id number] 2.16.840.1.871879.3.579.2. 1244 1946 Unknown [id number] 2.16.840.1.259989.3.579.2. 1244 1946 Unknown [id number] 2.16.840.1.239380.3.579.2. 196 1946 Unknown [id number] 2.16.840.1.748347.3.579.2. 196 1946 Unknown [id number] 2.16.840.1.097764.3.579.2. 1286 1946 Unknown [id number] 2.16.840.1.624737.3.579.2. 1286 1946 Unknown [id number] 2.16.840.1.134466.3.579.2. 1286 1946 Unknown [id number] 2.16.840.1.430895.3.579.2. 1286 1946 Unknown [id number] 2.16.840.1.924189.3.579.2. 1286 1946 Unknown [id number] 2.16.840.1.354142.3.579.2. 1286 1946 Unknown [id number] 2.16.840.1.239091.3.579.2. 1286 1946 Unknown [id number] 2.16.840.1.415903.3.579.2. 1286 1946 Unknown [id number] 2.16.840.1.821642.3.579.2. 1286 1946 Unknown [id number] 2.16.840.1.531570.3.579.2. 1286 1946 Unknown [id number] 2.16.840.1.806063.3.579.2. 1286 1946 Unknown [id number] 2.16.840.1.988174.3.579.2. 128 1946 Unknown [id number] 2.16.840.1.312008.3.579.2. 128 1946 Unknown [id number] 2.16.840.1.719838.3.579.2. 128 1946 Unknown [id number] 2.16.840.1.634869.3.579.2. 128 1946 Unknown [id number] 2.16.840.1.408619.3.579.2. 128 1946 Unknown [id number] 2.16.840.1.736915.3.579.2. 718 1946 Unknown [id number] 2.16.840.1.844412.3.579.2. 1258 1946 Unknown [id number] 2.16.840.1.796809.3.579.2. 9 1946 Unknown [id number] 2.16.840.1.317965.3.579.2. 1259 1946 Unknown [id number] 2.16.840.1.053405.3.579.2. 1258 1946 Unknown [id number] 2.16.840.1.967500.3.579.2. 125 1946 Unknown [id number] 2.16.840.1.012207.3.579.2. 1259 1946 Unknown [id number] 2.16.840.1.075802.3.579.2. 1259 1946 Unknown [id number] 2.16.840.1.000823.3.579.2. 1258 1946 Unknown [id number] 2.16.840.1.301199.3.579.2. 1258 1946 Unknown [id number] 2.16.840.1.640983.3.579.2. 1258 1946 Unknown [id number] 2.16.840.1.811489.3.579.2. 1258 1946 Unknown [id number] 2.16.840.1.827899.3.579.2. 1258 1946 Unknown [id number] 2.16.840.1.811064.3.579.2. 1258 1946 Unknown [id number] 2.16.840.1.309188.3.579.2. 1258 1946 Unknown [id number] 2.16.840.1.194097.3.579.2. 1258 1946 Unknown [id number] 2.16.840.1.918477.3.579.2. 1258 1946 Unknown [id number] 2.16.840.1.875801.3.579.2. 1258 1946 Unknown [id number] 2.16.840.1.844278.3.579.2. 1258 1946 Unknown [id number] 2.16.840.1.105964.3.579.2. 1258 1946 Unknown [id number] 2.16.840.1.967441.3.579.2. 1258 1946 Unknown [id number] 2.16.840.1.789340.3.579.2. 1258 1946 Unknown [id number] 2.16.840.1.991416.3.579.2. 1258 1946 Unknown [id number] 2.16.840.1.539681.3.579.2. 1259 1946 Unknown [id number] 2.16.840.1.765043.3.579.2. 1259 Self-pay Self Pay [id number] Unknown [employer] Social History Date Type Detail Facility Tobacco smoking stat [place] Unknown if ever smoked [facility] Start: 1945 Sex Assigned At Male [facility] Start: 11-14-2023 End: 06-17-2025 Social alcohol use Social alcohol use -[facility] DO Work Phone: Start: 11-15-2021 End: 06-17-2025 Tobacco smoking status Ex-smoker (finding) [facility] Comment on above: pt quit smoking in 1 984 Start: 11-14-2023 End: 06-17-2025 Sex Assigned At Male [facility] Start: 09-29-2022 Tobacco smoking status Never [facility] Comment on above: pt quit smoking in 1 984 Start: 01-01-2023 End: 04-05-2023 Tobacco smoking status NHIS Never Smoker [facility] End: 11-05-1983 History of tobacco use Current smoker [facility] Work Phone: End: 11-05-1983 History of tobacco use Cigarette Smoker [facility] Work Phone: Start: 11-14-2023 End: 06-17-2025 Tobacco use and exposure Smokeless tobacco non-user [facility] Work Phone: Start: 11-14-2023 Alcohol intake Ex-drinker (finding) [facility] Work Phone: Start: 1945 Sex Assigned At Not on file [facility] Work Phone: Start: 11-04-2023 End: 01-28-2025 Exposure to SARS-CoV-2 (event) Not sure [facility] Start: 07-15-2024 End: 06-17-2025 Alcoholic beverage intake Current drinker of alcohol (finding) [facility] Work Phone: Start: 04-05-2023 Alcohol Comment caffeine 2-3 cups/da y [facility] Start: 01-13-2022 End: 02-16-2025 Sex Male (finding) [facility] Has the [employer], [employer], oil, or water company threatened to shut off services in your home in past 12Mo No [facility] How often to you hav e a drink containing alcohol? 4 or more times a week [facility] How many standard drinks containing alcohol do you have on a typical day? 1 or 2 [facility] How often do you hav e 6 or more drinks on 1 occasion? Less than monthly [facility] Start: 04-23-2025 Tobacco Comment Smoked about 2 packs a day in 80s [facility] Start: 01-27-2022 Alcohol Comment daily [facility] Start: 10-24-2023 Gender identity Identifies as male gender (finding) [facility] Start: 10-24-2023 Sexual orientation Heterosexual (fin annamaria) [facility] Medical Equipment Procedure Code Equipment Code Equipment Origin al Text Equipment Identifier Dates FDA Start: 06-16-2019 CL CLOSURE DEVIC E EXOSEAL 6F FDA Start: 06-16-2019 CATARACT EXTRACT ION W/ INTRAOCULAR LENS Carlos Obrien DO 11/02/20 Non Biological Eye R [id number] FDA Start: 11-02-2020 CL CLOSURE DEVIC E [...] 4. 0 X 12 FDA Start: 06-16-2019 Cement Bn Bio 40 gm Rpl [id number] - Sna - [id number], [id number] FDA Start: 02-14-2022 Component Ptlr 3 8mm Persona Alply Kn Strl Lf - Sna - [id number], [id number] FDA Start: 02-14-2022 Insert Artc 7-10 G-H 12mm Kn Fx Brng Prlng Nxgn Lpsflx Strl Rpl [id number] + [id number] - Sna - [id number], [id number] FDA Start: 02-14-2022 Component Fem G Kn Rt Cmnt Nxgn Lpsflx Opt Zml Prlng Strl Rpl [id number] + [id number] - Sna - [id number]$$ [id number], [id number] FDA Start: 02-14-2022 Plate Tib 82x54m m Nxgn Kn Cmnt Mdlr Stm Prect 8 Tiv Pmma Rpl [id number] + [id number] - Sna - [id number]$$ [id number], [id number] FDA Start: 02-14-2022 CL CLOSURE DEVIC E EXOSEAL 6F FDA Start: 06-16-2019 CL STENT ADRIANO 4. 0 X 12 FDA Start: 06-16-2019 CL CLOSURE DEVIC E EXOSEAL 6F FDA Start: 06-16-2019 CL STENT ADRIANO 4. 0 X 12 FDA Start: 06-16-2019 Goals Date Patient Goal Desired Activity /State Personal health goal Comment on above: Formatting of this n ote might be different from the original. Evaluation of progress towards goal: safe discharge pending clinical progress Functional Status Date Assessment Result Facility 04-23-2025 Total score [AUDIT-C] 5 04/23/20 25 2:56 PM EDT Joyce Butler, DICK [facility] 09-24-2024 Functional Status N/A [facility] 08-27-2024 Functional Status N/A [facility] 08-19-2024 Functional Status N/A [facility] 08-12-2024 Functional Status N/A [facility] 07-02-2024 Functional Status N/A [facility] 06-24-2024 Functional Status N/A [facility] 06-17-2024 Functional Status N/A [facility] 06-12-2024 Functional Status N/A [facility] 05-02-2024 Functional Status N/A [facility] 03-14-2024 Functional Status N/A [facility] 01-25-2024 Functional Status N/A [facility] 01-09-2024 Functional Status N/A [facility] 12-14-2023 Functional Status N/A [facility] 12-10-2023 Functional Status N/A [facility] 11-09-2023 Functional Status N/A [facility] 10-08-2023 Functional Status N/A [facility] 09-14-2023 Functional Status N/A [facility] 08-07-2023 Functional Status N/A [facility] 05-11-2023 Functional Status N/A [facility] 05-01-2023 Functional Status N/A [facility] 03-19-2023 Functional Status N/A [facility] 03-12-2023 Functional Status N/A [facility] 11-28-2022 Functional Status N/A [facility] 05-30-2022 Functional Status N/A [facility] 05-05-2022 Functional Status N/A [facility] Mental Status Date Assessment Result Facility [facility] [employer] Clinical Notes 12-29-2020 to 06-17-2025 Marisol Connors MD - 06/17/2025 9:30 AM EDTPatient InstructionsAttachmentsAYAN Jacobs - 06/02/2025 9:45 AM EDT Note Date & Type Note Facility 06-17-2025 History of Present illness Narrative HPI Patient is in the office accompanied [...] review from admission in April 2025 to [facility] for confusion and hallucination. He has limited [...] discussion and plan. documented in this encounter [facility] Work Phone: 06-17-2025 Instructions Lora Torres LPN - 06/17/2025 9:30 AM [...] -14.9 Lbs Provided instructions on dietary changes. The following attachments cannot be sent through Care Everywhere.Diet and health (Lao)documented in this encounter [facility] Work Phone: 06-02-2025 History of Present illness Narrative Associated Order(s): L Inj/Asp: L knee; L Inj/Asp: L subacromial bursa Post-Procedure Diagnose(s): Arthritis of left knee; Impingement of left shoulder Images from the original note were not included. Orthopedic Office note: NAME: Edvin Roland : 1945 (EST PT) (L) KNEE ; RECENT FLARE UP XRAYS TODAY 06/02/25 EPIC XRAYS, 05/02/24 @ [facility] (PUSHED TO CHANGE PACS) NO MRI NO MDP / PREDNISONE NO CORTISONE INJ CURRENT PHYSICAL THERAPY-[facility] S/P LUMBAR SX PREVIOUS PAIN MGMT - DR SANCHEZ (LBP / NEUROPATHY) C/O DIFFUSE PAIN THAT IS GETTING WORSE. WORSE WHEN HE WAKES UP. USES WALKER TO AMBULATE- PRESENTS IN W/C TODAY. + SWELLING. DENIES INSTABILITY- +STIFFNESS WITH PROLONG SITTING- +TYLENOL WEARING DROP FOOT BRACE. H/O INJURY : DOI 05/02/24 - PT NOTES PAIN AFTER FALLING RECENT LUMBAR FUSION 02/24/25 DR SCHMID *LT SHOULDER* XRAY TODAY 06/02/25 IN EPIC PAIN X 2 MONTHS, HX OF FALLS. DIFFUSE PAIN WITH ROM AND AT REST. PAINFUL TO LAY ON LT SIDE. + WEAKNESS. DENIES N/T. + TYLENOL. Physical Exam Knee Musculoskeletal Exam Gait Antalgic: left Inspection Leg length disparity: no discrepancy Left Erythema: none Effusion: mild Edema: none Ecchymosis: none Deformity: none Alignment: varus Palpation Left Left knee palpation is unremarkable. Increased warmth: none Masses: none Crepitus: patellofemoral and medial Tenderness: present Medial joint line: moderate Patella: mild Range of Motion Left Left knee range of motion is normal and full. Active extension: 5 Passive extension: 0 Active flexion: 110 Passive flexion: 115 Strength Left Left knee strength is normal. Extension: 4/5. Extension is affected by pain. Flexion: 4/5. Flexion is affected by pain. Strength additional comments: Bilateral drop foot with AFOS Instability Left Instability signs: none - stable Anterior drawer: normal Neurovascular Left Left knee neurovascular exam is normal. Pulses - PT: normal Posterior tibial: 2+ Capillary refill: warm and well-perfused Special Signs Left Left knee special signs are normal. General Constitutional: appears stated age Labored breathing: no Psychiatric: normal mood and affect Neurological: alert and oriented x3 Skin: intact Lymphadenopathy: none Shoulder Musculoskeletal Exam Inspection Left Left shoulder inspection is normal. Ecchymosis: none Peripheral edema: none Atrophy: none Masses: none Palpation Left Crepitus: no crepitus Increased warmth: none Tenderness: present Anterior shoulder: mild AC joint: mild Lateral arm: mild Range of Motion Right Right shoulder active abduction: + pain passing 90 degrees. Left Left shoulder range of motion is normal. Active ROM: pain. Passive ROM: pain. Active forward elevation: 120. Passive forward elevation: 140. Shoulder active abduction: 120. Passive abduction: 140. Active external rotation at side: 80. Passive external rotation at side: 80. Internal rotation: side. Strength Left External rotation: 5/5. Internal rotation: 5/5. Abduction: 5/5. Abduction is affected by pain. Biceps: 5/5. Triceps: 5/5. Neurovascular Left Radial pulse: normal and 2+ Capillary refill: <3 sec Axillary nerve sensory distribution: normal Scapula Left Left shoulder scapula is normal. Position: normal Winging: none Special Tests Left Rotator Cuff Signs Neer's test: positive Kahn test: positive Painful arc test: positive Biceps/shyanne Signs Speed's test: negative General Constitutional: appears stated age Labored breathing: no Psychiatric: normal mood and affect Neurological: alert and oriented x3 Skin: intact Lymphadenopathy: none Orders Placed This Encounter Procedures L Inj/Asp: L knee This order was created via procedure documentation L Inj/Asp: L subacromial bursa This order was created via procedure documentation XR knee 1 or 2 views left Reason for exam:: pain XR shoulder 2+ views left Reason for exam:: pain L Inj/Asp: L knee on 06/02/2025 10:47 [...] discussed. Consent was given by the patient. L Inj/Asp: L subacromial bursa on 06/02/2025 10:48 AM Indications: pain Details: 21 G needle, posterior approach Medications: 40 mg methylPREDNISolone acetate 40 MG/ML Outcome: tolerated well, no immediate complications Utilizing aseptic technique with universal precautions . Pt given injection Left Shoulder SA space ( code 62667 LT) Procedure, treatment alternatives, risks and benefits explained, specific risks discussed. Consent was given by the patient. Patient was prepped and draped in the usual sterile fashion. Results ICD-10-CM 1. Acute pain of left knee M25.562 XR knee 1 or 2 views left 2. Acute pain of left shoulder M25.512 XR shoulder 2+ views left 3. Arthritis of left knee M17.12 L Inj/Asp: L knee 4. Impingement of left shoulder M25.812 L Inj/Asp: L subacromial bursa Assessment & Plan Left knee pain Awareness of patellofemoral arthritis and medial joint line degenerative changes is noted. Currently rehabbing from back surgery with progressive weakness in legs actively being addressed. Pain in medial knee and patellofemoral area occurs with position change in standing. Agrees to an intra-articular cortisone injection today after discussing risks and benefits. Treatment plan: Intra-articular cortisone injection administered today to manage pain. Patient educated on potential side effects including increased pain, infection, and possible allergic reactions. Recommended continuation of physical therapy focusing on strengthening exercises for legs and knee. Advised to monitor pain and report any adverse reactions. Encouraged to maintain regular follow-up appointments to assess progress and adjust treatment as necessary. Clinical decision making: Agrees to an intra-articular cortisone injection today after discussing risks and benefits. Left shoulder pain No recent falls or trauma reported. Pain occurs with shoulder abduction past 90 degrees and stiffness at end range of motion. Increased shoulder use due to reliance on walker and wheelchair for mobility has led to recent symptom flare-up. Recent delirium post-surgery has resolved per at bedside. No further concerns or questions expressed, agrees to conservative measures given current rehab from back surgery in 02/2025. Treatment plan: Conservative measures recommended including rest, ice application, and gentle shoulder exercises to improve range of motion and reduce stiffness. Advised to avoid activities that exacerbate shoulder pain. Suggested use of moyi-pjb-vayhsis pain relievers such as acetaminophen or ibuprofen for pain management. Encouraged to continue using walker and wheelchair as needed for mobility while minimizing strain on shoulders. Follow-up: Follow-up appointment scheduled to reassess shoulder pain and adjust treatment plan accordingly. Questions answered in laymen terms at the bedside. The diagnosis, home exercise plan and any ongoing restrictions/ recommendations reviewed. If unable to be reached in office, I recommend evaluation at nearest Emergency Room if any symptoms worsened or new symptoms develop for requiring urgent evaluation. Visit was preformed using [employer]-police pilot speech recognition. documented in this encounter [facility] 05-26-2025 Evaluation note Diagnosis Onset Date Resolution Delirium acute May 26 1:49pm DDD (degenerative disc disease), lumbar inactive May 26, 2025 1:49pm ASHD (arteriosclerotic heart disease) acute May 29, 2025 11:38am Delirium acute May 29 11:38am Generally unsteady acute May 062024 11:38am Lumbar spondylosis with myelopathy acute May 29, 2025 11:38am Polyneuropathy acute May 29, 2025 11:38am Primary hypertension acute May 29, 2025 11:38am [facility] Work Phone: 1(348) 352-622306-27-2025 Telephone encounter Note* Telephone Encounter - Deborahher Rasmussen - 05/01/2025 1:32 PM EDT Patient has dental appt next week, had TKA please call premed to [facility] [phone] no allegeries [id number] Miscellaneous Notes* Telephone Encounter - Deborahher Rasmussen - 05/01/2025 1:32 PM EDT Patient has dental appt next week, had TKA please call premed to [facility] [phone] no allegeries [id number] Nurse Note* Jeimy Brooks RN - 04/29/2025 10:43 AM EDT Spoke to Ellie and update her that patient was picked up by transport, also spoke to Vicenta JENNINGS at [facility] and notified facility that patient was picked up. - Jeimy Brooks RN 04/29/25 10:44 AM [facility]20[facility] Nurse Note* Jeimy Brooks RN - 04/29/2025 10:43 AM EDT Spoke to Ellie and update her that patient was picked up by transport, also spoke to Vicenta JENNINGS at [facility] and notified facility that patient was picked up. - Jeimy Brooks RN 04/29/25 10:44 AM * Kirk Hernandez RN - 04/28/2025 11:15 PM EDT 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 rescheduled for 830am, [facility] discharge updated in chart. [facility] updated. - Kirk Hernandez RN 04/28/25 11:17 PM [facility]* Kirk Hernandez RN - 04/28/2025 11:15 PM EDT 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 rescheduled for 830am, [facility] discharge updated in chart. [facility] updated. - Kirk Hernandez RN 04/28/25 11:17 PM [facility]06-24-20[facility] Plan of care note* Plan of Care - Kirk Hernandez RN - 04/28/2025 11:11 PM EDT Problem: Knowledge Deficit Goal: Patient/patient client relations representative demonstrates understanding of disease process, treatment plan,medications, and discharge instructions Description: INTERVENTIONS 1. Complete learning assessment and assess knowledge base 2. Provide teaching at level of understanding 3. Provide teaching via preferred learning method(s) Outcome: Not Progressing Note: Evaluation of progress towards goal: RN completes assessments and includes patient in plan ofcare. RN answers any questions related to plan of care during hospital stay, assesses knowledge base, provides teaching and checks understanding. RN educates based on learning methods and includes family if present/needed. Problem: Pain Goal: Patient goal is pain score less than 4, able to rest, and participant in treatment plan as appropriate Description: INTERVENTIONS: 1. Encourage patient or legal client relations representative to report early pain and ask for pain medicine when needed 2. Assess pain using appropriate pain scale and include the scale used when documenting 3. Administer analgesics based on type and severity of pain and evaluate response within appropriate time frame 4. Implement non-pharmacological measures as appropriate and evaluate response 5. Consider cultural and social influences on pain and pain management 6. Notify LIP if interventions ineffective or patient reports new pain 7. Monitor vital signs including pulse ox, end-tidal CO2 based on pain intervention 8. Reassess pain per policy 9. Teach patient or legal client relations representative interventions for comforting Outcome: Progressing Note: Evaluation of progress towards goal: RN encourages patient to report early pain and ask for pain medicine when needed, assess pain using appropriate pain scale and include the scale used when documenting. RN administers medications based on type and severity of pain and evaluates response within one hour. RN implements non-pharmacological measures. RN monitors vital signs including pulse ox, and reassess pain per policy. RN educates patient of interventions, medications, and plan of care. Problem: Safety Goal: Patient will be injury free during hospitalization Description: INTERVENTIONS: 1. Assess patient's risk for falls and implement fall prevention plan of care per policy 2. Provide and maintain a safe environment 3. Proper use of double Identifiers 4. Medication administration using the 5 rights 5. Hand hygiene 6. Specimens are labeled at the bedside 7. Instruct patient/ patient client relations representative about use of safety devices 8. Include patient/ patient client relations representative in decisions related to safety Outcome: Progressing Note: Evaluation of progress towards goal: RN assesses patient's risk for falls and implements fallprevention plan of care per policy. RN provides and maintains a safe environment, uses double identifiers, completes hand hygiene. RN completes medication administration using the 5 rights. RN educates about safety needs, plan of care, and incorporates patient/family in decisions related to safety needs. Problem: Infection Goal: Absence of infection during hospitalization Description: INTERVENTIONS 1. Assess and monitor for signs and symptoms of infection. 2. Monitor lab/diagnostic results. 3. Monitor all insertion sites i.e., indwelling lines, tubes and drains. 4. Monitor endotracheal (as able) and nasal secretions for changes in amount and color. 5. Administer medications as ordered. 6. Instruct and encourage patient and family to use good hand hygiene technique. 7. Identify and instruct patient/patient client relations representative in use of appropriate isolation precautionsfor identified infection/symptoms. 8. Provide and discuss with patient/patient client relations representative on educational MDRO sheet. 9. Encourage and monitor nutritional status daily and consult golf club head inspector and adjuster if indicated. 10. Implement neutropenic guidelines as needed. Outcome: Progressing Note: Evaluation of progress towards goal: RN assesses and monitors for signs and symptoms of infection, monitors lab/diagnostic results, monitors all insertion sites, and LDAs. RN administers medications as ordered. RN provides education and encouragement to family and patient on hand hygiene. RN i ncorporates appropriate isolation precautions for identified infection/symptoms. Problem: Discharge Planning Goal: Discharge to post-acute care, other facility, or home with appropriate resources Description: Patient's goal is: INTERVENTIONS 1. Conduct assessment to determine patient/family and health care team treatment goals, and need for post-acute services based on payer coverage, community resources, and patient preferences, and barriers to discharge 2. Coordinate with Social work, Care Navigation, and Utilization Review to arrange appropriate level of services according to patient's needs based on patient preference and payer coverage in collaboration with the physician and health care team 3. Address psychosocial, clinical, and financial barriers to discharge as identified in assessment in conjunction with the patient/family and health care team 4. Consult appropriate ancillary services (i.e.. PT/OT/ST, etc) as needed 5. Communicate with and update the patient/family, physician, and health care team regarding progress on the discharge plan 6. Identify discharge learning needs (meds, wound care, etc). 7. Arrange for needed discharge transportation as appropriate Outcome: Progressing Note: Evaluation of progress towards goal: RN conducts assessment to determine patient/family and health care team treatment goals, needs for post-acute services, patient preferences, and barriers todischarge. RN coordinates with Swk and Care [facility] based on appropriate level of services according topatient's needs in collaboration with the physician and health care team. RN addresses psychosocial, clinical, and financial barriers to discharge as identified in assessment in conjunction with the patient/family and health care team. Ancillary services (i.e.. PT/OT/ST, etc) consulted as needed. RN communicates with and updates the patient/family, physician, and health care team regarding progress on the discharge plan. RN identifies discharge learning needs (meds, wound care, etc). Problem: Potential for Compromised Skin Integrity Goal: Skin integrity is maintained or improved Description: Patient's goal is: INTERVENTIONS 1. Perform initial skin assessment on admission and as needed 2. Turn patient every 2 hours and PRN 3. Relieve pressure to bony prominences 4. Avoid shearing 5. Keep skin clean and dry 6. Alternate a full bath with partial baths for elderly 7. Apply lotion/moisturizer on skin 8. Monitor patient's hygiene practices 9. Float heels 10. Collaborate with interdisciplinary team and initiate plans and interventions as needed Outcome: Progressing Note: Evaluation of progress towards goal: RN performs initial skin assessment on admission and as needed. RN repositions/turns patient every 2 hours and PRN if needed. RN relieves pressure to bony prominences, avoids skin tears, keeps skin clean and dry, and provides hygiene/bathing based on policy and protocol. RN collaborates with interdisciplinary team and initiate plans and interventions as needed. Problem: Moderate - High Risk Fall Score Description: Disla Fall Score of =/> 25 or indicated by [facility] Assessment Goal: Patient should be free from fall Description: Interventions: 1. [place] to environment 2. Hourly rounds addressing the 4 P's (Pain, Positioning, Possessions, Potty) 3. Clear area of hazards (spills, clutter, electrical cords, unnecessary equipment) 4. Place equipment (bed & TV controls, call light, phone, urinal) within reach 5. Encourage patient to wear glasses and hearing aides as appropriate 6. Maintain bed in lowest position 7. Lock wheels on bed/wheelchair 8. Provide adequate lighting, including night light 9. Assess need for additional bedding, food/fluids, pain med's prior to sleep/routinely 10. Provide gripper slippers or personal non-skid footwear 11. Teach patient and patient client relations representative to maintain environment for safety and engage in all aspects of fall prevention program 12. Remind patient to call for help before getting out of bed 13. Initiate bed/chair/exit alarms supportive devices as appropriate, (chair wedge, no-skid floor mat, raised edge mattress, hip protectors) 14. Locate patient bed assignment for optimal visualization 15. Evaluate and identify Safe Patient Handling Equipment needs 16. Provide supervision when out of bed or chair 17. Utilize gait belt as needed to assist with ambulation 18. Place adaptive equipment (cane, walker) within reach 19. Request patient client relations representative bring adaptive equipment/mobility aids from home or obtain and provide as needed 20. Consult pharmacy regarding effects of med's affecting mobility, cognition, and alternatives 21. Obtain physician order for PT if risk factors associated with mobility are present 22. Obtain physician order for OT as appropriate 23. Utilize diversional activities 24. Educate patient and patient client relations representative how to maintain a safe environment during visitationtimes (notify nurse prior to leaving bedside) 25. Consider appropriateness of medical or non-medical lab director 26. Set up voiding schedule as appropriate (every 2 hours) Outcome: Progressing Note: Evaluation of progress towards goal: RN addresses needs related to orientation to environment. RN completes hourly rounds addressing the 4 P's (Pain, Positioning, Possessions, Potty). RN clearsarea of hazards, places equipment within reach, encourages patient to wear glasses, hearing aides, non- slip socks as appropriate. Bed in lowest position, wheels locked, adequate lighting provided, assessment of needs completed with hourly rounding. RN provides education for patient and family to maintain environment for safety and engage in all aspects of fall prevention. Patient encouraged to call for help prior to getting out of bed using call light. Bed alarm and supportive devices in place as appropriate. SPH needs assessed and identified, supervision provided when appropriate. PT/OT consulted if risk factors identified and needed. Educate patient and family how to maintain a safe environment. [facility]06-24-2025 Miscellaneous Notes* Plan of Care - Kirk Hernandez RN - 04/28/2025 11:11 PM EDT Problem: Knowledge Deficit Goal: Patient/patient client relations representative demonstrates understanding of disease process, treatment plan,medications, and discharge instructions Description: INTERVENTIONS 1. Complete learning assessment and assess knowledge base 2. Provide teaching at level of understanding 3. Provide teaching via preferred learning method(s) Outcome: Not Progressing Note: Evaluation of progress towards goal: RN completes assessments and includes patient in plan ofcare. RN answers any questions related to plan of care during hospital stay, assesses knowledge base, provides teaching and checks understanding. RN educates based on learning methods and includes family if present/needed. Problem: Pain Goal: Patient goal is pain score less than 4, able to rest, and participant in treatment plan as appropriate Description: INTERVENTIONS: 1. Encourage patient or legal client relations representative to report early pain and ask for pain medicine when needed 2. Assess pain using appropriate pain scale and include the scale used when documenting 3. Administer analgesics based on type and severity of pain and evaluate response within appropriate time frame 4. Implement non-pharmacological measures as appropriate and evaluate response 5. Consider cultural and social influences on pain and pain management 6. Notify LIP if interventions ineffective or patient reports new pain 7. Monitor vital signs including pulse ox, end-tidal CO2 based on pain intervention 8. Reassess pain per policy 9. Teach patient or legal client relations representative interventions for comforting Outcome: Progressing Note: Evaluation of progress towards goal: RN encourages patient to report early pain and ask for pain medicine when needed, assess pain using appropriate pain scale and include the scale used when documenting. RN administers medications based on type and severity of pain and evaluates response within one hour. RN implements non-pharmacological measures. RN monitors vital signs including pulse ox, and reassess pain per policy. RN educates patient of interventions, medications, and plan of care. Problem: Safety Goal: Patient will be injury free during hospitalization Description: INTERVENTIONS: 1. Assess patient's risk for falls and implement fall prevention plan of care per policy 2. Provide and maintain a safe environment 3. Proper use of double Identifiers 4. Medication administration using the 5 rights 5. Hand hygiene 6. Specimens are labeled at the bedside 7. Instruct patient/ patient client relations representative about use of safety devices 8. Include patient/ patient client relations representative in decisions related to safety Outcome: Progressing Note: Evaluation of progress towards goal: RN assesses patient's risk for falls and implements fallprevention plan of care per policy. RN provides and maintains a safe environment, uses double identifiers, completes hand hygiene. RN completes medication administration using the 5 rights. RN educates about safety needs, plan of care, and incorporates patient/family in decisions related to safety needs. Problem: Infection Goal: Absence of infection during hospitalization Description: INTERVENTIONS 1. Assess and monitor for signs and symptoms of infection. 2. Monitor lab/diagnostic results. 3. Monitor all insertion sites i.e., indwelling lines, tubes and drains. 4. Monitor endotracheal (as able) and nasal secretions for changes in amount and color. 5. Administer medications as ordered. 6. Instruct and encourage patient and family to use good hand hygiene technique. 7. Identify and instruct patient/patient client relations representative in use of appropriate isolation precautionsfor identified infection/symptoms. 8. Provide and discuss with patient/patient client relations representative on educational MDRO sheet. 9. Encourage and monitor nutritional status daily and consult golf club head inspector and adjuster if indicated. 10. Implement neutropenic guidelines as needed. Outcome: Progressing Note: Evaluation of progress towards goal: RN assesses and monitors for signs and symptoms of infection, monitors lab/diagnostic results, monitors all insertion sites, and LDAs. RN administers medications as ordered. RN provides education and encouragement to family and patient on hand hygiene. RN i ncorporates appropriate isolation precautions for identified infection/symptoms. Problem: Discharge Planning Goal: Discharge to post-acute care, other facility, or home with appropriate resources Description: Patient's goal is: INTERVENTIONS 1. Conduct assessment to determine patient/family and health care team treatment goals, and need for post-acute services based on payer coverage, community resources, and patient preferences, and barriers to discharge 2. Coordinate with Social work, Care Navigation, and Utilization Review to arrange appropriate level of services according to patient's needs based on patient preference and payer coverage in collaboration with the physician and health care team 3. Address psychosocial, clinical, and financial barriers to discharge as identified in assessment in conjunction with the patient/family and health care team 4. Consult appropriate ancillary services (i.e.. PT/OT/ST, etc) as needed 5. Communicate with and update the patient/family, physician, and health care team regarding progress on the discharge plan 6. Identify discharge learning needs (meds, wound care, etc). 7. Arrange for needed discharge transportation as appropriate Outcome: Progressing Note: Evaluation of progress towards goal: RN conducts assessment to determine patient/family and health care team treatment goals, needs for post-acute services, patient preferences, and barriers todischarge. RN coordinates with Swk and Care Arvin based on appropriate level of services according topatient's needs in collaboration with the physician and health care team. RN addresses psychosocial, clinical, and financial barriers to discharge as identified in assessment in conjunction with the patient/family and health care team. Ancillary services (i.e.. PT/OT/ST, etc) consulted as needed. RN communicates with and updates the patient/family, physician, and health care team regarding progress on the discharge plan. RN identifies discharge learning needs (meds, wound care, etc). Problem: Potential for Compromised Skin Integrity Goal: Skin integrity is maintained or improved Description: Patient's goal is: INTERVENTIONS 1. Perform initial skin assessment on admission and as needed 2. Turn patient every 2 hours and PRN 3. Relieve pressure to bony prominences 4. Avoid shearing 5. Keep skin clean and dry 6. Alternate a full bath with partial baths for elderly 7. Apply lotion/moisturizer on skin 8. Monitor patient's hygiene practices 9. Float heels 10. Collaborate with interdisciplinary team and initiate plans and interventions as needed Outcome: Progressing Note: Evaluation of progress towards goal: RN performs initial skin assessment on admission and as needed. RN repositions/turns patient every 2 hours and PRN if needed. RN relieves pressure to bony prominences, avoids skin tears, keeps skin clean and dry, and provides hygiene/bathing based on policy and protocol. RN collaborates with interdisciplinary team and initiate plans and interventions as needed. Problem: Moderate - High Risk Fall Score Description: Disla Fall Score of =/> 25 or indicated by [facility] Assessment Goal: Patient should be free from fall Description: Interventions: 1. [place] to environment 2. Hourly rounds addressing the 4 P's (Pain, Positioning, Possessions, Potty) 3. Clear area of hazards (spills, clutter, electrical cords, unnecessary equipment) 4. Place equipment (bed & TV controls, call light, phone, urinal) within reach 5. Encourage patient to wear glasses and hearing aides as appropriate 6. Maintain bed in lowest position 7. Lock wheels on bed/wheelchair 8. Provide adequate lighting, including night light 9. Assess need for additional bedding, food/fluids, pain med's prior to sleep/routinely 10. Provide gripper slippers or personal non-skid footwear 11. Teach patient and patient client relations representative to maintain environment for safety and engage in all aspects of fall prevention program 12. Remind patient to call for help before getting out of bed 13. Initiate bed/chair/exit alarms supportive devices as appropriate, (chair wedge, no-skid floor mat, raised edge mattress, hip protectors) 14. Locate patient bed assignment for optimal visualization 15. Evaluate and identify Safe Patient Handling Equipment needs 16. Provide supervision when out of bed or chair 17. Utilize gait belt as needed to assist with ambulation 18. Place adaptive equipment (cane, walker) within reach 19. Request patient client relations representative bring adaptive equipment/mobility aids from home or obtain and provide as needed 20. Consult pharmacy regarding effects of med's affecting mobility, cognition, and alternatives 21. Obtain physician order for PT if risk factors associated with mobility are present 22. Obtain physician order for OT as appropriate 23. Utilize diversional activities 24. Educate patient and patient client relations representative how to maintain a safe environment during visitationtimes (notify nurse prior to leaving bedside) 25. Consider appropriateness of medical or non-medical lab director 26. Set up voiding schedule as appropriate (every 2 hours) Outcome: Progressing Note: Evaluation of progress towards goal: RN addresses needs related to orientation to environment. RN completes hourly rounds addressing the 4 P's (Pain, Positioning, Possessions, Potty). RN clearsarea of hazards, places equipment within reach, encourages patient to wear glasses, hearing aides, non- slip socks as appropriate. Bed in lowest position, wheels locked, adequate lighting provided, assessment of needs completed with hourly rounding. RN provides education for patient and family to maintain environment for safety and engage in all aspects of fall prevention. Patient encouraged to call for help prior to getting out of bed using call light. Bed alarm and supportive devices in place as appropriate. SPH needs assessed and identified, supervision provided when appropriate. PT/OT consulted if risk factors identified and needed. Educate patient and family how to maintain a safe environment. * Plan of Care - Uri Valenzuela RN - 04/28/2025 7:49 PM EDT Problem: Pain Goal: Patient goal is pain score less than 4, able to rest, and participant in treatment plan as appropriate Description: INTERVENTIONS: 1. Encourage patient or legal client relations representative to report early pain and ask for pain medicine when needed 2. Assess pain using appropriate pain scale and include the scale used when documenting 3. Administer analgesics based on type and severity of pain and evaluate response within appropriate time frame 4. Implement non-pharmacological measures as appropriate and evaluate response 5. Consider cultural and social influences on pain and pain management 6. Notify LIP if interventions ineffective or patient reports new pain 7. Monitor vital signs including pulse ox, end-tidal CO2 based on pain intervention 8. Reassess pain per policy 9. Teach patient or legal client relations representative interventions for comforting Outcome: Progressing Note: Evaluation of progress towards goal: Lap Layer assessed that patient has had pain reassessed perpolicy. Implement no-pharmacological measures as appropriate and evaluate response with appropriatetime frame. Monitor vital signs including pulse ox, end-tidal c02 based on paint intervention. Problem: Safety Goal: Patient will be injury free during hospitalization Description: INTERVENTIONS: 1. Assess patient's risk for falls and implement fall prevention plan of care per policy 2. Provide and maintain a safe environment 3. Proper use of double Identifiers 4. Medication administration using the 5 rights 5. Hand hygiene 6. Specimens are labeled at the bedside 7. Instruct patient/ patient client relations representative about use of safety devices 8. Include patient/ patient client relations representative in decisions related to safety Outcome: Progressing Note: Evaluation of progress towards goal: Lap Layer assessed that patient has been provided and maintained a safe environment. Medication administration using the 5 rights. Proper use of double identifiers. Problem: Infection Goal: Absence of infection during hospitalization Description: INTERVENTIONS 1. Assess and monitor for signs and symptoms of infection. 2. Monitor lab/diagnostic results. 3. Monitor all insertion sites i.e., indwelling lines, tubes and drains. 4. Monitor endotracheal (as able) and nasal secretions for changes in amount and color. 5. Administer medications as ordered. 6. Instruct and encourage patient and family to use good hand hygiene technique. 7. Identify and instruct patient/patient client relations representative in use of appropriate isolation precautionsfor identified infection/symptoms. 8. Provide and discuss with patient/patient client relations representative on educational MDRO sheet. 9. Encourage and monitor nutritional status daily and consult golf club head inspector and adjuster if indicated. 10. Implement neutropenic guidelines as needed. Outcome: Progressing Note: Evaluation of progress towards goal: Lap Layer has been assessed and monitored for signs and symptoms of infection. Administered medications as ordered. Monitored all insertion sites. Problem: Knowledge Deficit Goal: Patient/patient client relations representative demonstrates understanding of disease process, treatment plan,medications, and discharge instructions Description: INTERVENTIONS 1. Complete learning assessment and assess knowledge base 2. Provide teaching at level of understanding 3. Provide teaching via preferred learning method(s) Outcome: Progressing Note: Evaluation of progress towards goal: Lap Layer has assessed that patient has been provided teaching at level of understanding. Provided teaching via preferred learning methods. Completed learning assessment and assessed knowledge base. Problem: Discharge Planning Goal: Discharge to post-acute care, other facility, or home with appropriate resources Description: Patient's goal is: INTERVENTIONS 1. Conduct assessment to determine patient/family and health care team treatment goals, and need for post-acute services based on payer coverage, community resources, and patient preferences, and barriers to discharge 2. Coordinate with Social work, Care Navigation, and Utilization Review to arrange appropriate level of services according to patient's needs based on patient preference and payer coverage in collaboration with the physician and health care team 3. Address psychosocial, clinical, and financial barriers to discharge as identified in assessment in conjunction with the patient/family and health care team 4. Consult appropriate ancillary services (i.e.. PT/OT/ST, etc) as needed 5. Communicate with and update the patient/family, physician, and health care team regarding progress on the discharge plan 6. Identify discharge learning needs (meds, wound care, etc). 7. Arrange for needed discharge transportation as appropriate Outcome: Progressing Note: Evaluation of progress towards goal: Lap Layer assessed the patient for the following. Identify discharge learning needs. Arrange for needed discharge transportation as appropriate. Coordinate with social work and care navigation to arrange appropriate level of services according to patient's needs based on patient preference. Problem: Potential for Compromised Skin Integrity Goal: Skin integrity is maintained or improved Description: Patient's goal is: INTERVENTIONS 1. Perform initial skin assessment on admission and as needed 2. Turn patient every 2 hours and PRN 3. Relieve pressure to bony prominences 4. Avoid shearing 5. Keep skin clean and dry 6. Alternate a full bath with partial baths for elderly 7. Apply lotion/moisturizer on skin 8. Monitor patient's hygiene practices 9. Float heels 10. Collaborate with interdisciplinary team and initiate plans and interventions as needed Outcome: Progressing Note: Evaluation of progress towards goal: Lap Layer assessed that patient is being repositioned Q2. Keeping skin clean and dry. Relieving pressure to bony prominences. Goal: Patient's nutritional intake is adequate Description: Patient's goal is: INTERVENTIONS 1. Assess and monitor food intake and supplements, patient food preferences, nausea, vomiting, labs, oral cavity (gums, teeth, tongue, mucosa), proper denture fit, and cultural beliefs 2. Monitor for signs of hypoglycemia and hyperglycemia 3. Collaborate with interdisciplinary team and initiate plan and interventions as ordered 4. Monitor patient's weight 5. Assist patient with meals/food selection 6. Assist patient with eating 7. Allow adequate time for meals 8. Provide pleasant environment during mealtime 9. Increase social contact during mealtimes 10. Plan activities to conserve energy 11. Encourage/perform oral hygiene as appropriate 12. Encourage patient to take dietary supplement as ordered 13. Collaborate with clinical golf club head inspector and adjuster 14. Include patient/ patient's client relations representative in decisions related to nutrition Outcome: Progressing Note: Evaluation of progress towards goal: Lap Layer assessed that patient is allowed adequate time for meals. Provided pleasant environment during mealtime. Encouraged/perform oral hygiene as appropriate. Problem: Urinary Incontinence Goal: Perineal skin integrity is maintained or improved Description: INTERVENTIONS 1. Assess genitourinary system, perineal skin, labs (urinalysis), and history of incontinence to include past management, aggravating, and alleviating factors 2. Keep skin clean and dry 3. Apply skin protectant 4. Develop skin care regimen 5. Provide privacy when changing patients incontinence device to maintain their dignity 6. Consider placing an indwelling catheter 7. Collaborate with interdisciplinary team and initiate plans and interventions as needed Outcome: Progressing Note: Evaluation of progress towards goal: Lap Layer assessed the patient for the following. Keep skinclean and dry. Assess perineal skin. Maintain external catheter. Problem: Moderate - High Risk Fall Score Description: Disla Fall Score of =/> 25 or indicated by [facility] Assessment Goal: Patient should be free from fall Description: Interventions: 1. [place] to environment 2. Hourly rounds addressing the 4 P's (Pain, Positioning, Possessions, Potty) 3. Clear area of hazards (spills, clutter, electrical cords, unnecessary equipment) 4. Place equipment (bed & TV controls, call light, phone, urinal) within reach 5. Encourage patient to wear glasses and hearing aides as appropriate 6. Maintain bed in lowest position 7. Lock wheels on bed/wheelchair 8. Provide adequate lighting, including night light 9. Assess need for additional bedding, food/fluids, pain med's prior to sleep/routinely 10. Provide gripper slippers or personal non-skid footwear 11. Teach patient and patient client relations representative to maintain environment for safety and engage in all aspects of fall prevention program 12. Remind patient to call for help before getting out of bed 13. Initiate bed/chair/exit alarms supportive devices as appropriate, (chair wedge, no-skid floor mat, raised edge mattress, hip protectors) 14. Locate patient bed assignment for optimal visualization 15. Evaluate and identify Safe Patient Handling Equipment needs 16. Provide supervision when out of bed or chair 17. Utilize gait belt as needed to assist with ambulation 18. Place adaptive equipment (cane, walker) within reach 19. Request patient client relations representative bring adaptive equipment/mobility aids from home or obtain and provide as needed 20. Consult pharmacy regarding effects of med's affecting mobility, cognition, and alternatives 21. Obtain physician order for PT if risk factors associated with mobility are present 22. Obtain physician order for OT as appropriate 23. Utilize diversional activities 24. Educate patient and patient client relations representative how to maintain a safe environment during visitationtimes (notify nurse prior to leaving bedside) 25. Consider appropriateness of medical or non-medical lab director 26. Set up voiding schedule as appropriate (every 2 hours) Outcome: Progressing Note: Evaluation of progress towards goal: Lap Layer has been assessed in the following. [place] to environment, hourly rounds addressing the 4 P's (Pain, Positioning, Possessions, Potty). Maintain bed in lowest position. Remind patient to call for help before getting out of bed. * Discharge Planning Note - Mary Bacon - 04/28/2025 2:59 PM EDT DISCHARGE PLANNING NOTE Prior Auth approved for admission to : [facility] (P# [phone] ; F# ) Approval # [id number] Valid for Dates: 04/28/2025-05/04/2025 * Discharge Planning Note - Carri Jimenez - 04/28/2025 1:55 PM EDT DISCHARGE PLANNING NOTE BLS transport via PTN confirmed in [facility] to [facility] 6.25 at 7:00pm * PT/OT/STAFFING ASSOCIATE - FAITH Friedman - 04/28/2025 9:58 AM EDT Occupational Therapy Treatment Discharge Recommendations for Safe Patient Transition Discharge Recommendations: Post acute - moderate Post Acute Moderate Rehab Needs: Recommend moderate intensity rehab, Tolerate 1- 2 hrs of therapy 3-5 days/wk, Subacute or chronic functional impairment Current Impairments Informing Therapy Recommendation: ADL status, Ambulation status/safety, Fall risk, Cognition, Endurance level Therapy Plan 6 Clicks: Daily Activity Putting on and taking off regular lower body clothing?: Total Bathing (including washing, rinsing, drying)?: A lot Toileting, which includes using toilet, bedpan or urinal?: Total Putting on and taking off regular upper body clothing?: A lot Taking care of personal grooming such as brushing teeth?: A lot Eating meals?: A lot Scoring Daily Activity Raw Score: 10 CMS G Code Modifier: CL OT Treatment/Interventions: Functional transfer training, ADL retraining, UE strengthening/ROM, Cognitive reorientation, Endurance training, Equipment eval/education, Patient/family training, Balance, Bed mobility, Gait training, Compensatory technique education, Functional activities OT Frequency: 4-5days/week Assessment Patient Assessment Therapy Problem List: Decreased balance, Decreased endurance, Decreased mobility, Decreased safe judgement during ADL, Decreased LE strength Patient Response to Treatment: Slow progress, decreased activity tolerance Mood/Affect: Anxious Visit RN Communication: Yes Medical Record Reviewed: Yes OT Type of Visit: Treatment Precautions Activity: early mobility: pass, ok per RN Uri for therapy Equipment: gait belt, RW, repositioning sling, ex cath Telemetry/Patrol [employer] Lieutenant: No Oxygen Used: room air Other: (S) high fall risk, significant anxiety/panic attacks with mobility, 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, B AFOs Pain Assessment Pain Assessment: 0-10 Pain Score: 8 Pain Location: Knee Pain Orientation: Left Pain Intervention(s): Repositioned (RN notified for pain meds) Response to Interventions: Quiet ADL / IADL Grooming Assistance: Standby assist, Setup Grooming Deficit: Wash/dry face (pt declined to completed oral care at this time) Toilet/Commode Assistance: Total assist (external catheter) UE Dressing Assistance: Max assist UE Dressing Deficit: Thread RUE, Thread LUE, Pull down in back, Fasteners (don gown as robe) Footwear Assistance: Max assist Footwear Deficit: R sock, L sock, R shoe, L shoe, Orthotic/brace (B LE AFO- max assist to don/doff) Other: pt deferred oral care this AM; joshua to wash face after set up Home Management - IADL Other: pt deferred oral care this AM; joshua to wash face after set up Hearing / Speech / Vision Hearing: Within Functional Limits, No hearing aid Speech: Delayed responses, Other (Comment) Current Vision: Wears glasses for distance only Cognition Orientation Level: Oriented to person, Oriented to place Following Commands: Follows one step commands with repetition, Follows one step commands with increased time Safety Judgment: Decreased awareness of need for assistance, Decreased awareness of need for safety Awareness of Errors: Assistance required to correct errors made, Assistance required to identify errors made, Decreased awareness of errors Insight of Deficits: Decreased awareness of deficits Problem Solving: Assistance required to identify errors made, Assistance required to generate solutions, Assistance required to implement solutions Other: pt given choice of use of nic stedy or rw to transfer from bed to chair; pt chose nic stedy; however was unable to clear bottom from bed x2 attempts; used maxi matt to transfer bed to chair this date. Bed Mobility Rolling: Contact guard assist, Right, Left Supine to Sit: Min assist, Right, Verbal cues (minx2) Sit to Supine: Mod assist (mod x2) Other: HOB slightly elevated to complete supine to sit- pt took extended time to complete minx2; ptcompleted sit to supine modx2- increased vc's for use of bed rail each way; pt with decreased carryover. Transfers Sit to Stand: Max assist, Visual cues (max x2) Other: Attempted to stand from bed to nic stedy x2- max x2 assist- pt unable to clear bottom off bed- pt reports increased L knee pain with movement; used maxi matt for safe transfer bed to chair Gait Other: NT Balance Sitting Balance: Static: Fair Sitting Balance: Dynamic: Fair (fair-) Standing Balance: Static: (pt unable to get to stand this date.) Other: pt engaged in unsupported sitting at EOB approx 15' in prep for getting up to nic stedy- sba - pt sat unssupported an additional 15' in chair -with few posterior LOB required min assist x1 tocorrect balance. 04/28/25 0937 UE ROM UE ROM exercises performed? Yes Scapular retraction x Shoulder flexion/extension x Shoulder horizontal abduction/adduction x Elbow flexion/extension x Other B UE AROM Repetitions 15 Activity Tolerance Endurance: Tolerates >30 minutes activity with rest breaks Other: (S) pt took extended time to get from supine to sit- approx 10' with increased encouragement; pt also took extended time to get from sit to stand at nic stedy approx 15' - unable to stand at this time d/t L knee pain- pt remained up in chair with call light in reach and chair alarm on. Plan Occupational Therapy Care Plan Occupational Therapy Care Plan (Active) Template: OT - Occupational Therapy Problem: Activity Tolerance Dates: Start: 04/23/25 Disciplines: OT Goal: Tolerate > 30 minutes of activity WITH rest breaks Dates: Start: 04/23/25 Expected End: 05/22/25 Description: Goal Description: Disciplines: OT Outcomes Date/Time User Outcome 04/28/25 0958 FAITH Friedman Progressing 04/25/25 1141 FAITH Devlin Progressing Goal Note filed on 04/28/25 0958 by FAITH Friedman Evaluation of progress towards goal: Problem: Bed Mobility Dates: Start: 04/23/25 Disciplines: OT Goal: Patient will perform bed mobility with Contact Guard Dates: Start: 04/23/25 Expected End: 05/22/25 Description: Goal Description: Disciplines: OT Outcomes Date/Time User Outcome 04/28/25 0958 FAITH Friedman Progressing 04/25/25 1141 FAITH Devlin Progressing Goal Note filed on 04/28/25 0958 by FAITH Friedman Evaluation of progress towards goal: Problem: Cognition Dates: Start: 04/23/25 Disciplines: OT Goal: Improve cognition Dates: Start: 04/23/25 Expected End: 05/22/25 Description: Pt will demo improved safety awareness during tx sessions as evidenced by lack of needfor vc's for safety to increase independence in all functional activity. Disciplines: OT Outcomes Date/Time User Outcome 04/25/25 1141 FAITH Devlin Not Progressing Goal Note filed on 04/25/25 1141 by FAITH Devlin Evaluation of progress towards goal: Problem: Functional Mobility Dates: Start: 04/23/25 Disciplines: OT Goal: Patient will perform functional mobility with Contact Guard Dates: Start: 04/23/25 Expected End: 05/22/25 Description: Goal Description: Disciplines: OT Outcomes Date/Time User Outcome 04/25/25 1141 FAITH Devlin Not Progressing Goal Note filed on 04/25/25 114 by FAITH Devlin Evaluation of progress towards goal: Problem: Other (Customize) Dates: Start: 04/23/25 Disciplines: OT Goal: Improve Dates: Start: 04/23/25 Expected End: 05/22/25 Description: Pt will demo setup level with all UB ADLs using AE prn to facilitate return to PLOF. Disciplines: OT Outcomes Date/Time User Outcome 04/25/25 114 FAITH Devlin Progressing Goal Note filed on 04/25/25 114 by FAITH Devlin Evaluation of progress towards goal: Problem: Other (Customize) Dates: Start: 04/23/25 Disciplines: OT Goal: Improve Dates: Start: 04/23/25 Expected End: 05/22/25 Description: Pt will complete all LB ADLs with Min A level or better using AE prn to facilitate return to PLOF Disciplines: OT Problem: Sitting Balance Dates: Start: 04/23/25 Disciplines: OT Goal: Improve balance to good Dates: Start: 04/23/25 Expected End: 05/22/25 Description: Static Dynamic Disciplines: OT Outcomes Date/Time User Outcome 04/28/25 0958 FAITH Friedman Progressing 04/25/25 1141 FAITH Devlin Progressing Goal Note filed on 04/28/25 0958 by FAITH Friedman Evaluation of progress towards goal: Problem: Standing Balance Dates: Start: 04/23/25 Disciplines: OT Goal: Improve balance to fair Dates: Start: 04/23/25 Expected End: 05/22/25 Description: Static Dynamic Disciplines: OT Outcomes Date/Time User Outcome 04/28/25 0958 FAITH Friedman Not Progressing 04/25/25 1141 FAITH Devlin Progressing Goal Note filed on 04/28/25 0958 by FAITH Friedman Evaluation of progress towards goal: Problem: Strength Dates: Start: 04/23/25 Disciplines: OT Goal: Improve strength Dates: Start: 04/23/25 Expected End: 05/22/25 Description: Pt will demo good understanding of BUE strengthening HEP to increase endurance for functional transfers, mobility, and ADL with RW. Disciplines: OT Outcomes Date/Time User Outcome 04/25/25 1141 FAITH Devlin Progressing Goal Note filed on 04/25/25 1141 by FAITH Devlin Evaluation of progress towards goal: Problem: Transfers Dates: Start: 04/23/25 Disciplines: OT Goal: Patient will perform transfers with Contact Guard Dates: Start: 04/23/25 Expected End: 05/22/25 Description: Goal Description: Disciplines: OT Outcomes Date/Time User Outcome 04/28/25 0958 FAITH Friedman Not Progressing 04/25/25 1141 FAITH Devlin Progressing Goal Note filed on 04/28/25 0958 by FAITH Friedman Evaluation of progress towards goal: Occupational Therapy Care Plan (Resolved) There are no resolved problems. Principal Problem: Altered mental status Cosigned by DOMINICK Lynn/John at 04/28/2025 2:39 PM EDT Associated attestation - Annalise Olivera OTR/L - 04/28/2025 2:39 PM EDT I have reviewed and agree with this note and education documentation for this visit. * Discharge Planning Note - JAMES Albright - 04/28/2025 9:05 AM EDT DISCHARGE PLANNING NOTE Case discussed in daily transition rounds and chart reviewed by CN. Barriers to discharge include peer to peer, updated PT/OT Discharge Plan remains: [facility]. Insurance is intending to deny SNF stay and peer to peer information was provided to [facility]. Social work informing MD and message was left with insurance tocomplete peer to peer- wait final determination. CN will continue to follow and is available should any further needs arise. - JAMES ALBRIGHT 04/28/25 9:05 AM completed peer to peer and insurance approved SNF stay. Discharge written, CRF complete. Social work task [facility] to arrange BLS transport and [facility] ambulance has been arranged. [facility] notified of discharge and CRF sent. HENS submitted. RN updated. is aware and agreeable to transition plan. - JAMES ALBRIGHT 04/28/25 3:36 PM * Plan of Care - Kirk Hernandez RN - 04/28/2025 12:52 AM EDT Problem: Knowledge Deficit Goal: Patient/patient client relations representative demonstrates understanding of disease process, treatment plan,medications, and discharge instructions Description: INTERVENTIONS 1. Complete learning assessment and assess knowledge base 2. Provide teaching at level of understanding 3. Provide teaching via preferred learning method(s) Outcome: Not Progressing Note: Evaluation of progress towards goal: RN completes assessments and includes patient in plan ofcare. RN answers any questions related to plan of care during hospital stay, assesses knowledge base, provides teaching and checks understanding. RN educates based on learning methods and includes family if present/needed. Problem: Pain Goal: Patient goal is pain score less than 4, able to rest, and participant in treatment plan as appropriate Description: INTERVENTIONS: 1. Encourage patient or legal client relations representative to report early pain and ask for pain medicine when needed 2. Assess pain using appropriate pain scale and include the scale used when documenting 3. Administer analgesics based on type and severity of pain and evaluate response within appropriate time frame 4. Implement non-pharmacological measures as appropriate and evaluate response 5. Consider cultural and social influences on pain and pain management 6. Notify LIP if interventions ineffective or patient reports new pain 7. Monitor vital signs including pulse ox, end-tidal CO2 based on pain intervention 8. Reassess pain per policy 9. Teach patient or legal client relations representative interventions for comforting Outcome: Progressing Note: Evaluation of progress towards goal: RN encourages patient to report early pain and ask for pain medicine when needed, assess pain using appropriate pain scale and include the scale used when documenting. RN administers medications based on type and severity of pain and evaluates response within one hour. RN implements non-pharmacological measures. RN monitors vital signs including pulse ox, and reassess pain per policy. RN educates patient of interventions, medications, and plan of care. Problem: Safety Goal: Patient will be injury free during hospitalization Description: INTERVENTIONS: 1. Assess patient's risk for falls and implement fall prevention plan of care per policy 2. Provide and maintain a safe environment 3. Proper use of double Identifiers 4. Medication administration using the 5 rights 5. Hand hygiene 6. Specimens are labeled at the bedside 7. Instruct patient/ patient client relations representative about use of safety devices 8. Include patient/ patient client relations representative in decisions related to safety Outcome: Progressing Note: Evaluation of progress towards goal: RN assesses patient's risk for falls and implements fallprevention plan of care per policy. RN provides and maintains a safe environment, uses double identifiers, completes hand hygiene. RN completes medication administration using the 5 rights. RN educates about safety needs, plan of care, and incorporates patient/family in decisions related to safety needs. Problem: Infection Goal: Absence of infection during hospitalization Description: INTERVENTIONS 1. Assess and monitor for signs and symptoms of infection. 2. Monitor lab/diagnostic results. 3. Monitor all insertion sites i.e., indwelling lines, tubes and drains. 4. Monitor endotracheal (as able) and nasal secretions for changes in amount and color. 5. Administer medications as ordered. 6. Instruct and encourage patient and family to use good hand hygiene technique. 7. Identify and instruct patient/patient client relations representative in use of appropriate isolation precautionsfor identified infection/symptoms. 8. Provide and discuss with patient/patient client relations representative on educational MDRO sheet. 9. Encourage and monitor nutritional status daily and consult golf club head inspector and adjuster if indicated. 10. Implement neutropenic guidelines as needed. Outcome: Progressing Note: Evaluation of progress towards goal: RN assesses and monitors for signs and symptoms of infection, monitors lab/diagnostic results, monitors all insertion sites, and LDAs. RN administers medications as ordered. RN provides education and encouragement to family and patient on hand hygiene. RN i ncorporates appropriate isolation precautions for identified infection/symptoms. Problem: Discharge Planning Goal: Discharge to post-acute care, other facility, or home with appropriate resources Description: Patient's goal is: INTERVENTIONS 1. Conduct assessment to determine patient/family and health care team treatment goals, and need for post-acute services based on payer coverage, community resources, and patient preferences, and barriers to discharge 2. Coordinate with Social work, Care Navigation, and Utilization Review to arrange appropriate level of services according to patient's needs based on patient preference and payer coverage in collaboration with the physician and health care team 3. Address psychosocial, clinical, and financial barriers to discharge as identified in assessment in conjunction with the patient/family and health care team 4. Consult appropriate ancillary services (i.e.. PT/OT/ST, etc) as needed 5. Communicate with and update the patient/family, physician, and health care team regarding progress on the discharge plan 6. Identify discharge learning needs (meds, wound care, etc). 7. Arrange for needed discharge transportation as appropriate Outcome: Progressing Note: Evaluation of progress towards goal: RN conducts assessment to determine patient/family and health care team treatment goals, needs for post-acute services, patient preferences, and barriers todischarge. RN coordinates with Swk and Care [facility] based on appropriate level of services according topatient's needs in collaboration with the physician and health care team. RN addresses psychosocial, clinical, and financial barriers to discharge as identified in assessment in conjunction with the patient/family and health care team. Ancillary services (i.e.. PT/OT/ST, etc) consulted as needed. RN communicates with and updates the patient/family, physician, and health care team regarding progress on the discharge plan. RN identifies discharge learning needs (meds, wound care, etc). Problem: Potential for Compromised Skin Integrity Goal: Skin integrity is maintained or improved Description: Patient's goal is: INTERVENTIONS 1. Perform initial skin assessment on admission and as needed 2. Turn patient every 2 hours and PRN 3. Relieve pressure to bony prominences 4. Avoid shearing 5. Keep skin clean and dry 6. Alternate a full bath with partial baths for elderly 7. Apply lotion/moisturizer on skin 8. Monitor patient's hygiene practices 9. Float heels 10. Collaborate with interdisciplinary team and initiate plans and interventions as needed Outcome: Progressing Note: Evaluation of progress towards goal: RN performs initial skin assessment on admission and as needed. RN repositions/turns patient every 2 hours and PRN if needed. RN relieves pressure to bony prominences, avoids skin tears, keeps skin clean and dry, and provides hygiene/bathing based on policy and protocol. RN collaborates with interdisciplinary team and initiate plans and interventions as needed. Problem: Moderate - High Risk Fall Score Description: Disla Fall Score of =/> 25 or indicated by [facility] Assessment Goal: Patient should be free from fall Description: Interventions: 1. [place] to environment 2. Hourly rounds addressing the 4 P's (Pain, Positioning, Possessions, Potty) 3. Clear area of hazards (spills, clutter, electrical cords, unnecessary equipment) 4. Place equipment (bed & TV controls, call light, phone, urinal) within reach 5. Encourage patient to wear glasses and hearing aides as appropriate 6. Maintain bed in lowest position 7. Lock wheels on bed/wheelchair 8. Provide adequate lighting, including night light 9. Assess need for additional bedding, food/fluids, pain med's prior to sleep/routinely 10. Provide gripper slippers or personal non-skid footwear 11. Teach patient and patient client relations representative to maintain environment for safety and engage in all aspects of fall prevention program 12. Remind patient to call for help before getting out of bed 13. Initiate bed/chair/exit alarms supportive devices as appropriate, (chair wedge, no-skid floor mat, raised edge mattress, hip protectors) 14. Locate patient bed assignment for optimal visualization 15. Evaluate and identify Safe Patient Handling Equipment needs 16. Provide supervision when out of bed or chair 17. Utilize gait belt as needed to assist with ambulation 18. Place adaptive equipment (cane, walker) within reach 19. Request patient client relations representative bring adaptive equipment/mobility aids from home or obtain and provide as needed 20. Consult pharmacy regarding effects of med's affecting mobility, cognition, and alternatives 21. Obtain physician order for PT if risk factors associated with mobility are present 22. Obtain physician order for OT as appropriate 23. Utilize diversional activities 24. Educate patient and patient client relations representative how to maintain a safe environment during visitationtimes (notify nurse prior to leaving bedside) 25. Consider appropriateness of medical or non-medical lab director 26. Set up voiding schedule as appropriate (every 2 hours) Outcome: Progressing Note: Evaluation of progress towards goal: RN addresses needs related to orientation to environment. RN completes hourly rounds addressing the 4 P's (Pain, Positioning, Possessions, Potty). RN clearsarea of hazards, places equipment within reach, encourages patient to wear glasses, hearing aides, non- slip socks as appropriate. Bed in lowest position, wheels locked, adequate lighting provided, assessment of needs completed with hourly rounding. RN provides education for patient and family to maintain environment for safety and engage in all aspects of fall prevention. Patient encouraged to call for help prior to getting out of bed using call light. Bed alarm and supportive devices in place as appropriate. SPH needs assessed and identified, supervision provided when appropriate. PT/OT consulted if risk factors identified and needed. Educate patient and family how to maintain a safe environment. * Plan of Care - Uri Valenzuela RN - 04/27/2025 7:25 PM EDT Problem: Pain Goal: Patient goal is pain score less than 4, able to rest, and participant in treatment plan as appropriate Description: INTERVENTIONS: 1. Encourage patient or legal client relations representative to report early pain and ask for pain medicine when needed 2. Assess pain using appropriate pain scale and include the scale used when documenting 3. Administer analgesics based on type and severity of pain and evaluate response within appropriate time frame 4. Implement non-pharmacological measures as appropriate and evaluate response 5. Consider cultural and social influences on pain and pain management 6. Notify LIP if interventions ineffective or patient reports new pain 7. Monitor vital signs including pulse ox, end-tidal CO2 based on pain intervention 8. Reassess pain per policy 9. Teach patient or legal client relations representative interventions for comforting Outcome: Progressing Note: Evaluation of progress towards goal: Lap Layer assessed that patient has had pain reassessed perpolicy. Implement no-pharmacological measures as appropriate and evaluate response with appropriatetime frame. Monitor vital signs including pulse ox, end-tidal c02 based on paint intervention. Problem: Safety Goal: Patient will be injury free during hospitalization Description: INTERVENTIONS: 1. Assess patient's risk for falls and implement fall prevention plan of care per policy 2. Provide and maintain a safe environment 3. Proper use of double Identifiers 4. Medication administration using the 5 rights 5. Hand hygiene 6. Specimens are labeled at the bedside 7. Instruct patient/ patient client relations representative about use of safety devices 8. Include patient/ patient client relations representative in decisions related to safety Outcome: Progressing Note: Evaluation of progress towards goal: Lap Layer assessed that patient has been provided and maintained a safe environment. Medication administration using the 5 rights. Proper use of double identifiers. Problem: Infection Goal: Absence of infection during hospitalization Description: INTERVENTIONS 1. Assess and monitor for signs and symptoms of infection. 2. Monitor lab/diagnostic results. 3. Monitor all insertion sites i.e., indwelling lines, tubes and drains. 4. Monitor endotracheal (as able) and nasal secretions for changes in amount and color. 5. Administer medications as ordered. 6. Instruct and encourage patient and family to use good hand hygiene technique. 7. Identify and instruct patient/patient client relations representative in use of appropriate isolation precautionsfor identified infection/symptoms. 8. Provide and discuss with patient/patient client relations representative on educational MDRO sheet. 9. Encourage and monitor nutritional status daily and consult golf club head inspector and adjuster if indicated. 10. Implement neutropenic guidelines as needed. Outcome: Progressing Note: Evaluation of progress towards goal: Lap Layer has been assessed and monitored for signs and symptoms of infection. Administered medications as ordered. Monitored all insertion sites. Problem: Knowledge Deficit Goal: Patient/patient client relations representative demonstrates understanding of disease process, treatment plan,medications, and discharge instructions Description: INTERVENTIONS 1. Complete learning assessment and assess knowledge base 2. Provide teaching at level of understanding 3. Provide teaching via preferred learning method(s) Outcome: Progressing Note: Evaluation of progress towards goal: Lap Layer has assessed that patient has been provided teaching at level of understanding. Provided teaching via preferred learning methods. Completed learning assessment and assessed knowledge base. Problem: Discharge Planning Goal: Discharge to post-acute care, other facility, or home with appropriate resources Description: Patient's goal is: INTERVENTIONS 1. Conduct assessment to determine patient/family and health care team treatment goals, and need for post-acute services based on payer coverage, community resources, and patient preferences, and barriers to discharge 2. Coordinate with Social work, Care Navigation, and Utilization Review to arrange appropriate level of services according to patient's needs based on patient preference and payer coverage in collaboration with the physician and health care team 3. Address psychosocial, clinical, and financial barriers to discharge as identified in assessment in conjunction with the patient/family and health care team 4. Consult appropriate ancillary services (i.e.. PT/OT/ST, etc) as needed 5. Communicate with and update the patient/family, physician, and health care team regarding progress on the discharge plan 6. Identify discharge learning needs (meds, wound care, etc). 7. Arrange for needed discharge transportation as appropriate Outcome: Progressing Note: Evaluation of progress towards goal: Lap Layer assessed the patient for the following. Identify discharge learning needs. Arrange for needed discharge transportation as appropriate. Coordinate with social work and care navigation to arrange appropriate level of services according to patient's needs based on patient preference. Problem: Potential for Compromised Skin Integrity Goal: Skin integrity is maintained or improved Description: Patient's goal is: INTERVENTIONS 1. Perform initial skin assessment on admission and as needed 2. Turn patient every 2 hours and PRN 3. Relieve pressure to bony prominences 4. Avoid shearing 5. Keep skin clean and dry 6. Alternate a full bath with partial baths for elderly 7. Apply lotion/moisturizer on skin 8. Monitor patient's hygiene practices 9. Float heels 10. Collaborate with interdisciplinary team and initiate plans and interventions as needed Outcome: Progressing Note: Evaluation of progress towards goal: Lap Layer assessed that patient is being repositioned Q2. Keeping skin clean and dry. Relieving pressure to bony prominences. Goal: Patient's nutritional intake is adequate Description: Patient's goal is: INTERVENTIONS 1. Assess and monitor food intake and supplements, patient food preferences, nausea, vomiting, labs, oral cavity (gums, teeth, tongue, mucosa), proper denture fit, and cultural beliefs 2. Monitor for signs of hypoglycemia and hyperglycemia 3. Collaborate with interdisciplinary team and initiate plan and interventions as ordered 4. Monitor patient's weight 5. Assist patient with meals/food selection 6. Assist patient with eating 7. Allow adequate time for meals 8. Provide pleasant environment during mealtime 9. Increase social contact during mealtimes 10. Plan activities to conserve energy 11. Encourage/perform oral hygiene as appropriate 12. Encourage patient to take dietary supplement as ordered 13. Collaborate with clinical golf club head inspector and adjuster 14. Include patient/ patient's client relations representative in decisions related to nutrition Outcome: Progressing Note: Evaluation of progress towards goal: Lap Layer assessed that patient is allowed adequate time for meals. Provided pleasant environment during mealtime. Encouraged/perform oral hygiene as appropriate. Problem: Urinary Incontinence Goal: Perineal skin integrity is maintained or improved Description: INTERVENTIONS 1. Assess genitourinary system, perineal skin, labs (urinalysis), and history of incontinence to include past management, aggravating, and alleviating factors 2. Keep skin clean and dry 3. Apply skin protectant 4. Develop skin care regimen 5. Provide privacy when changing patients incontinence device to maintain their dignity 6. Consider placing an indwelling catheter 7. Collaborate with interdisciplinary team and initiate plans and interventions as needed Outcome: Progressing Note: Evaluation of progress towards goal: Lap Layer assessed the patient for the following. Keep skinclean and dry. Assess perineal skin. Maintain indwelling catheter. Problem: Moderate - High Risk Fall Score Description: Disla Fall Score of =/> 25 or indicated by [facility] Assessment Goal: Patient should be free from fall Description: Interventions: 1. [place] to environment 2. Hourly rounds addressing the 4 P's (Pain, Positioning, Possessions, Potty) 3. Clear area of hazards (spills, clutter, electrical cords, unnecessary equipment) 4. Place equipment (bed & TV controls, call light, phone, urinal) within reach 5. Encourage patient to wear glasses and hearing aides as appropriate 6. Maintain bed in lowest position 7. Lock wheels on bed/wheelchair 8. Provide adequate lighting, including night light 9. Assess need for additional bedding, food/fluids, pain med's prior to sleep/routinely 10. Provide gripper slippers or personal non-skid footwear 11. Teach patient and patient client relations representative to maintain environment for safety and engage in all aspects of fall prevention program 12. Remind patient to call for help before getting out of bed 13. Initiate bed/chair/exit alarms supportive devices as appropriate, (chair wedge, no-skid floor mat, raised edge mattress, hip protectors) 14. Locate patient bed assignment for optimal visualization 15. Evaluate and identify Safe Patient Handling Equipment needs 16. Provide supervision when out of bed or chair 17. Utilize gait belt as needed to assist with ambulation 18. Place adaptive equipment (cane, walker) within reach 19. Request patient client relations representative bring adaptive equipment/mobility aids from home or obtain and provide as needed 20. Consult pharmacy regarding effects of med's affecting mobility, cognition, and alternatives 21. Obtain physician order for PT if risk factors associated with mobility are present 22. Obtain physician order for OT as appropriate 23. Utilize diversional activities 24. Educate patient and patient client relations representative how to maintain a safe environment during visitationtimes (notify nurse prior to leaving bedside) 25. Consider appropriateness of medical or non-medical lab director 26. Set up voiding schedule as appropriate (every 2 hours) Outcome: Progressing Note: Evaluation of progress towards goal: Lap Layer has been assessed in the following. [place] to environment, hourly rounds addressing the 4 P's (Pain, Positioning, Possessions, Potty). Maintain bed in lowest position. Remind patient to call for help before getting out of bed. * Discharge Planning Note - Rhea Dueñas - 04/27/2025 4:59 PM EDT DISCHARGE PLANNING NOTE [employer] has requested a peer to peer for this case. Call : [phone] opt. : 4 Deadline is: 04/28/2025 12:00 PM EST Please have the following information when calling: Patient Name : Edvin Roland Date of : 1945 Ref # : [id number] * Discharge Planning Note - JAMES Albright - 04/27/2025 12:06 PM EDT DISCHARGE PLANNING NOTE Case discussed in daily transition rounds and chart reviewed by CN. Barriers to discharge include SNF precert, elyte replacement, monitor K Discharge Plan remains: [facility]. Waiting insurance approval for SNF. is aware and agreeable to transition plan and anxious for discharge. CN will continue to follow and is available should any further needs arise. - JAMES ALBRIGHT 04/27/25 12:07 PM * Plan of Care - Kirk Hernandez RN - 04/26/2025 11:27 PM EDT Problem: Knowledge Deficit Goal: Patient/patient client relations representative demonstrates understanding of disease process, treatment plan,medications, and discharge instructions Description: INTERVENTIONS 1. Complete learning assessment and assess knowledge base 2. Provide teaching at level of understanding 3. Provide teaching via preferred learning method(s) Outcome: Not Progressing Note: Evaluation of progress towards goal: RN completes assessments and includes patient in plan ofcare. RN answers any questions related to plan of care during hospital stay, assesses knowledge base, provides teaching and checks understanding. RN educates based on learning methods and includes family if present/needed. Problem: Pain Goal: Patient goal is pain score less than 4, able to rest, and participant in treatment plan as appropriate Description: INTERVENTIONS: 1. Encourage patient or legal client relations representative to report early pain and ask for pain medicine when needed 2. Assess pain using appropriate pain scale and include the scale used when documenting 3. Administer analgesics based on type and severity of pain and evaluate response within appropriate time frame 4. Implement non-pharmacological measures as appropriate and evaluate response 5. Consider cultural and social influences on pain and pain management 6. Notify LIP if interventions ineffective or patient reports new pain 7. Monitor vital signs including pulse ox, end-tidal CO2 based on pain intervention 8. Reassess pain per policy 9. Teach patient or legal client relations representative interventions for comforting Outcome: Progressing Note: Evaluation of progress towards goal: RN encourages patient to report early pain and ask for pain medicine when needed, assess pain using appropriate pain scale and include the scale used when documenting. RN administers medications based on type and severity of pain and evaluates response within one hour. RN implements non-pharmacological measures. RN monitors vital signs including pulse ox, and reassess pain per policy. RN educates patient of interventions, medications, and plan of care. Problem: Safety Goal: Patient will be injury free during hospitalization Description: INTERVENTIONS: 1. Assess patient's risk for falls and implement fall prevention plan of care per policy 2. Provide and maintain a safe environment 3. Proper use of double Identifiers 4. Medication administration using the 5 rights 5. Hand hygiene 6. Specimens are labeled at the bedside 7. Instruct patient/ patient client relations representative about use of safety devices 8. Include patient/ patient client relations representative in decisions related to safety Outcome: Progressing Note: Evaluation of progress towards goal: RN assesses patient's risk for falls and implements fallprevention plan of care per policy. RN provides and maintains a safe environment, uses double identifiers, completes hand hygiene. RN completes medication administration using the 5 rights. RN educates about safety needs, plan of care, and incorporates patient/family in decisions related to safety needs. Problem: Infection Goal: Absence of infection during hospitalization Description: INTERVENTIONS 1. Assess and monitor for signs and symptoms of infection. 2. Monitor lab/diagnostic results. 3. Monitor all insertion sites i.e., indwelling lines, tubes and drains. 4. Monitor endotracheal (as able) and nasal secretions for changes in amount and color. 5. Administer medications as ordered. 6. Instruct and encourage patient and family to use good hand hygiene technique. 7. Identify and instruct patient/patient client relations representative in use of appropriate isolation precautionsfor identified infection/symptoms. 8. Provide and discuss with patient/patient client relations representative on educational MDRO sheet. 9. Encourage and monitor nutritional status daily and consult golf club head inspector and adjuster if indicated. 10. Implement neutropenic guidelines as needed. Outcome: Progressing Note: Evaluation of progress towards goal: RN assesses and monitors for signs and symptoms of infection, monitors lab/diagnostic results, monitors all insertion sites, and LDAs. RN administers medications as ordered. RN provides education and encouragement to family and patient on hand hygiene. RN i ncorporates appropriate isolation precautions for identified infection/symptoms. Problem: Discharge Planning Goal: Discharge to post-acute care, other facility, or home with appropriate resources Description: Patient's goal is: INTERVENTIONS 1. Conduct assessment to determine patient/family and health care team treatment goals, and need for post-acute services based on payer coverage, community resources, and patient preferences, and barriers to discharge 2. Coordinate with Social work, Care Navigation, and Utilization Review to arrange appropriate level of services according to patient's needs based on patient preference and payer coverage in collaboration with the physician and health care team 3. Address psychosocial, clinical, and financial barriers to discharge as identified in assessment in conjunction with the patient/family and health care team 4. Consult appropriate ancillary services (i.e.. PT/OT/ST, etc) as needed 5. Communicate with and update the patient/family, physician, and health care team regarding progress on the discharge plan 6. Identify discharge learning needs (meds, wound care, etc). 7. Arrange for needed discharge transportation as appropriate Outcome: Progressing Note: Evaluation of progress towards goal: RN conducts assessment to determine patient/family and health care team treatment goals, needs for post-acute services, patient preferences, and barriers todischarge. RN coordinates with Swk and Care [facility] based on appropriate level of services according topatient's needs in collaboration with the physician and health care team. RN addresses psychosocial, clinical, and financial barriers to discharge as identified in assessment in conjunction with the patient/family and health care team. Ancillary services (i.e.. PT/OT/ST, etc) consulted as needed. RN communicates with and updates the patient/family, physician, and health care team regarding progress on the discharge plan. RN identifies discharge learning needs (meds, wound care, etc). Problem: Potential for Compromised Skin Integrity Goal: Skin integrity is maintained or improved Description: Patient's goal is: INTERVENTIONS 1. Perform initial skin assessment on admission and as needed 2. Turn patient every 2 hours and PRN 3. Relieve pressure to bony prominences 4. Avoid shearing 5. Keep skin clean and dry 6. Alternate a full bath with partial baths for elderly 7. Apply lotion/moisturizer on skin 8. Monitor patient's hygiene practices 9. Float heels 10. Collaborate with interdisciplinary team and initiate plans and interventions as needed Outcome: Progressing Note: Evaluation of progress towards goal: RN performs initial skin assessment on admission and as needed. RN repositions/turns patient every 2 hours and PRN if needed. RN relieves pressure to bony prominences, avoids skin tears, keeps skin clean and dry, and provides hygiene/bathing based on policy and protocol. RN collaborates with interdisciplinary team and initiate plans and interventions as needed. Problem: Moderate - High Risk Fall Score Description: Disla Fall Score of =/> 25 or indicated by [facility] Assessment Goal: Patient should be free from fall Description: Interventions: 1. [place] to environment 2. Hourly rounds addressing the 4 P's (Pain, Positioning, Possessions, Potty) 3. Clear area of hazards (spills, clutter, electrical cords, unnecessary equipment) 4. Place equipment (bed & TV controls, call light, phone, urinal) within reach 5. Encourage patient to wear glasses and hearing aides as appropriate 6. Maintain bed in lowest position 7. Lock wheels on bed/wheelchair 8. Provide adequate lighting, including night light 9. Assess need for additional bedding, food/fluids, pain med's prior to sleep/routinely 10. Provide gripper slippers or personal non-skid footwear 11. Teach patient and patient client relations representative to maintain environment for safety and engage in all aspects of fall prevention program 12. Remind patient to call for help before getting out of bed 13. Initiate bed/chair/exit alarms supportive devices as appropriate, (chair wedge, no-skid floor mat, raised edge mattress, hip protectors) 14. Locate patient bed assignment for optimal visualization 15. Evaluate and identify Safe Patient Handling Equipment needs 16. Provide supervision when out of bed or chair 17. Utilize gait belt as needed to assist with ambulation 18. Place adaptive equipment (cane, walker) within reach 19. Request patient client relations representative bring adaptive equipment/mobility aids from home or obtain and provide as needed 20. Consult pharmacy regarding effects of med's affecting mobility, cognition, and alternatives 21. Obtain physician order for PT if risk factors associated with mobility are present 22. Obtain physician order for OT as appropriate 23. Utilize diversional activities 24. Educate patient and patient client relations representative how to maintain a safe environment during visitationtimes (notify nurse prior to leaving bedside) 25. Consider appropriateness of medical or non-medical lab director 26. Set up voiding schedule as appropriate (every 2 hours) Outcome: Progressing Note: Evaluation of progress towards goal: RN addresses needs related to orientation to environment. RN completes hourly rounds addressing the 4 P's (Pain, Positioning, Possessions, Potty). RN clearsarea of hazards, places equipment within reach, encourages patient to wear glasses, hearing aides, non- slip socks as appropriate. Bed in lowest position, wheels locked, adequate lighting provided, assessment of needs completed with hourly rounding. RN provides education for patient and family to maintain environment for safety and engage in all aspects of fall prevention. Patient encouraged to call for help prior to getting out of bed using call light. Bed alarm and supportive devices in place as appropriate. SPH needs assessed and identified, supervision provided when appropriate. PT/OT consulted if risk factors identified and needed. Educate patient and family how to maintain a safe environment. * Plan of Care - Uri Valenzuela RN - 04/26/2025 7:39 PM EDT Problem: Safety Goal: Patient will be injury free during hospitalization Description: INTERVENTIONS: 1. Assess patient's risk for falls and implement fall prevention plan of care per policy 2. Provide and maintain a safe environment 3. Proper use of double Identifiers 4. Medication administration using the 5 rights 5. Hand hygiene 6. Specimens are labeled at the bedside 7. Instruct patient/ patient client relations representative about use of safety devices 8. Include patient/ patient client relations representative in decisions related to safety Outcome: Progressing Note: Evaluation of progress towards goal: Lap Layer assessed that patient has been provided and maintained a safe environment. Medication administration using the 5 rights. Proper use of double identifiers. Problem: Infection Goal: Absence of infection during hospitalization Description: INTERVENTIONS 1. Assess and monitor for signs and symptoms of infection. 2. Monitor lab/diagnostic results. 3. Monitor all insertion sites i.e., indwelling lines, tubes and drains. 4. Monitor endotracheal (as able) and nasal secretions for changes in amount and color. 5. Administer medications as ordered. 6. Instruct and encourage patient and family to use good hand hygiene technique. 7. Identify and instruct patient/patient client relations representative in use of appropriate isolation precautionsfor identified infection/symptoms. 8. Provide and discuss with patient/patient client relations representative on educational MDRO sheet. 9. Encourage and monitor nutritional status daily and consult golf club head inspector and adjuster if indicated. 10. Implement neutropenic guidelines as needed. Outcome: Progressing Note: Evaluation of progress towards goal: Lap Layer has been assessed and monitored for signs and symptoms of infection. Administered medications as ordered. Monitored all insertion sites. Problem: Knowledge Deficit Goal: Patient/patient client relations representative demonstrates understanding of disease process, treatment plan,medications, and discharge instructions Description: INTERVENTIONS 1. Complete learning assessment and assess knowledge base 2. Provide teaching at level of understanding 3. Provide teaching via preferred learning method(s) Outcome: Progressing Note: Evaluation of progress towards goal: Lap Layer has assessed that patient has been provided teaching at level of understanding. Provided teaching via preferred learning methods. Completed learning assessment and assessed knowledge base. Problem: Discharge Planning Goal: Discharge to post-acute care, other facility, or home with appropriate resources Description: Patient's goal is: INTERVENTIONS 1. Conduct assessment to determine patient/family and health care team treatment goals, and need for post-acute services based on payer coverage, community resources, and patient preferences, and barriers to discharge 2. Coordinate with Social work, Care Navigation, and Utilization Review to arrange appropriate level of services according to patient's needs based on patient preference and payer coverage in collaboration with the physician and health care team 3. Address psychosocial, clinical, and financial barriers to discharge as identified in assessment in conjunction with the patient/family and health care team 4. Consult appropriate ancillary services (i.e.. PT/OT/ST, etc) as needed 5. Communicate with and update the patient/family, physician, and health care team regarding progress on the discharge plan 6. Identify discharge learning needs (meds, wound care, etc). 7. Arrange for needed discharge transportation as appropriate Outcome: Progressing Note: Evaluation of progress towards goal: Lap Layer assessed the patient for the following. Identify discharge learning needs. Arrange for needed discharge transportation as appropriate. Coordinate with social work and care navigation to arrange appropriate level of services according to patient's needs based on patient preference. Problem: Urinary Incontinence Goal: Perineal skin integrity is maintained or improved Description: INTERVENTIONS 1. Assess genitourinary system, perineal skin, labs (urinalysis), and history of incontinence to include past management, aggravating, and alleviating factors 2. Keep skin clean and dry 3. Apply skin protectant 4. Develop skin care regimen 5. Provide privacy when changing patients incontinence device to maintain their dignity 6. Consider placing an indwelling catheter 7. Collaborate with interdisciplinary team and initiate plans and interventions as needed Outcome: Progressing Note: Evaluation of progress towards goal: Lap Layer assessed the patient for the following. Keep skinclean and dry. Assess perineal skin. Maintain indwelling catheter. Problem: Moderate - High Risk Fall Score Description: Disla Fall Score of =/> 25 or indicated by [facility] Assessment Goal: Patient should be free from fall Description: Interventions: 1. [place] to environment 2. Hourly rounds addressing the 4 P's (Pain, Positioning, Possessions, Potty) 3. Clear area of hazards (spills, clutter, electrical cords, unnecessary equipment) 4. Place equipment (bed & TV controls, call light, phone, urinal) within reach 5. Encourage patient to wear glasses and hearing aides as appropriate 6. Maintain bed in lowest position 7. Lock wheels on bed/wheelchair 8. Provide adequate lighting, including night light 9. Assess need for additional bedding, food/fluids, pain med's prior to sleep/routinely 10. Provide gripper slippers or personal non-skid footwear 11. Teach patient and patient client relations representative to maintain environment for safety and engage in all aspects of fall prevention program 12. Remind patient to call for help before getting out of bed 13. Initiate bed/chair/exit alarms supportive devices as appropriate, (chair wedge, no-skid floor mat, raised edge mattress, hip protectors) 14. Locate patient bed assignment for optimal visualization 15. Evaluate and identify Safe Patient Handling Equipment needs 16. Provide supervision when out of bed or chair 17. Utilize gait belt as needed to assist with ambulation 18. Place adaptive equipment (cane, walker) within reach 19. Request patient client relations representative bring adaptive equipment/mobility aids from home or obtain and provide as needed 20. Consult pharmacy regarding effects of med's affecting mobility, cognition, and alternatives 21. Obtain physician order for PT if risk factors associated with mobility are present 22. Obtain physician order for OT as appropriate 23. Utilize diversional activities 24. Educate patient and patient client relations representative how to maintain a safe environment during visitationtimes (notify nurse prior to leaving bedside) 25. Consider appropriateness of medical or non-medical lab director 26. Set up voiding schedule as appropriate (every 2 hours) Outcome: Progressing Note: Evaluation of progress towards goal: Lap Layer has been assessed in the following. [place] to environment, hourly rounds addressing the 4 P's (Pain, Positioning, Possessions, Potty). Maintain bed in lowest position. Remind patient to call for help before getting out of bed. * Plan of Care - Fe Marin RN - 04/26/2025 12:35 AM EDT Problem: Pain Goal: Patient goal is pain score less than 4, able to rest, and participant in treatment plan as appropriate Description: INTERVENTIONS: 1. Encourage patient or legal client relations representative to report early pain and ask for pain medicine when needed 2. Assess pain using appropriate pain scale and include the scale used when documenting 3. Administer analgesics based on type and severity of pain and evaluate response within appropriate time frame 4. Implement non-pharmacological measures as appropriate and evaluate response 5. Consider cultural and social influences on pain and pain management 6. Notify LIP if interventions ineffective or patient reports new pain 7. Monitor vital signs including pulse ox, end-tidal CO2 based on pain intervention 8. Reassess pain per policy 9. Teach patient or legal client relations representative interventions for comforting Outcome: Progressing Note: Evaluation of progress towards goal: Patient's pain assessed using numerical scale 0-10. Nonpharmacological and phamacological measures used to manage pain as ordered. Will continue to assess and monitor as necessary Problem: Safety Goal: Patient will be injury free during hospitalization Description: INTERVENTIONS: 1. Assess patient's risk for falls and implement fall prevention plan of care per policy 2. Provide and maintain a safe environment 3. Proper use of double Identifiers 4. Medication administration using the 5 rights 5. Hand hygiene 6. Specimens are labeled at the bedside 7. Instruct patient/ patient client relations representative about use of safety devices 8. Include patient/ patient client relations representative in decisions related to safety Outcome: Progressing Note: Evaluation of progress towards goal: No events reported during shift. Bed is locked and in lowest position with side rails up x2, call light and personal items are within reach, hourly roundingcompleted, non skid socks maintained. Problem: Infection Goal: Absence of infection during hospitalization Description: INTERVENTIONS 1. Assess and monitor for signs and symptoms of infection. 2. Monitor lab/diagnostic results. 3. Monitor all insertion sites i.e., indwelling lines, tubes and drains. 4. Monitor endotracheal (as able) and nasal secretions for changes in amount and color. 5. Administer medications as ordered. 6. Instruct and encourage patient and family to use good hand hygiene technique. 7. Identify and instruct patient/patient client relations representative in use of appropriate isolation precautionsfor identified infection/symptoms. 8. Provide and discuss with patient/patient client relations representative on educational MDRO sheet. 9. Encourage and monitor nutritional status daily and consult golf club head inspector and adjuster if indicated. 10. Implement neutropenic guidelines as needed. Outcome: Progressing Note: Evaluation of progress towards goal: Handwashing and standard precautions maintained, patientremains free of signs and symptoms of infection, patient is afebrile, IV insertion site monitored. Will continue to monitor for signs and symptoms of infection. Problem: Knowledge Deficit Goal: Patient/patient client relations representative demonstrates understanding of disease process, treatment plan,medications, and discharge instructions Description: INTERVENTIONS 1. Complete learning assessment and assess knowledge base 2. Provide teaching at level of understanding 3. Provide teaching via preferred learning method(s) Outcome: Progressing Note: Evaluation of progress towards goal: Patient states understanding of plan of care, medications, and discharge plans at this time. Will continue to monitor and educate as necessary Problem: Potential for Compromised Skin Integrity Goal: Skin integrity is maintained or improved Description: Patient's goal is: INTERVENTIONS 1. Perform initial skin assessment on admission and as needed 2. Turn patient every 2 hours and PRN 3. Relieve pressure to bony prominences 4. Avoid shearing 5. Keep skin clean and dry 6. Alternate a full bath with partial baths for elderly 7. Apply lotion/moisturizer on skin 8. Monitor patient's hygiene practices 9. Float heels 10. Collaborate with interdisciplinary team and initiate plans and interventions as needed Outcome: Progressing Note: Evaluation of progress towards goal: Turn patient every 2 hours and PRN * Plan of Care - Uri Valenzuela RN - 04/25/2025 4:02 PM EDT Problem: Pain Goal: Patient goal is pain score less than 4, able to rest, and participant in treatment plan as appropriate Description: INTERVENTIONS: 1. Encourage patient or legal client relations representative to report early pain and ask for pain medicine when needed 2. Assess pain using appropriate pain scale and include the scale used when documenting 3. Administer analgesics based on type and severity of pain and evaluate response within appropriate time frame 4. Implement non-pharmacological measures as appropriate and evaluate response 5. Consider cultural and social influences on pain and pain management 6. Notify LIP if interventions ineffective or patient reports new pain 7. Monitor vital signs including pulse ox, end-tidal CO2 based on pain intervention 8. Reassess pain per policy 9. Teach patient or legal client relations representative interventions for comforting Outcome: Progressing Note: Evaluation of progress towards goal: Lap Layer assessed that patient has had pain reassessed perpolicy. Implement no-pharmacological measures as appropriate and evaluate response with appropriatetime frame. Monitor vital signs including pulse ox, end-tidal c02 based on paint intervention. Problem: Safety Goal: Patient will be injury free during hospitalization Description: INTERVENTIONS: 1. Assess patient's risk for falls and implement fall prevention plan of care per policy 2. Provide and maintain a safe environment 3. Proper use of double Identifiers 4. Medication administration using the 5 rights 5. Hand hygiene 6. Specimens are labeled at the bedside 7. Instruct patient/ patient client relations representative about use of safety devices 8. Include patient/ patient client relations representative in decisions related to safety Outcome: Progressing Note: Evaluation of progress towards goal: Lap Layer assessed that patient has been provided and maintained a safe environment. Medication administration using the 5 rights. Proper use of double identifiers. Problem: Infection Goal: Absence of infection during hospitalization Description: INTERVENTIONS 1. Assess and monitor for signs and symptoms of infection. 2. Monitor lab/diagnostic results. 3. Monitor all insertion sites i.e., indwelling lines, tubes and drains. 4. Monitor endotracheal (as able) and nasal secretions for changes in amount and color. 5. Administer medications as ordered. 6. Instruct and encourage patient and family to use good hand hygiene technique. 7. Identify and instruct patient/patient client relations representative in use of appropriate isolation precautionsfor identified infection/symptoms. 8. Provide and discuss with patient/patient client relations representative on educational MDRO sheet. 9. Encourage and monitor nutritional status daily and consult golf club head inspector and adjuster if indicated. 10. Implement neutropenic guidelines as needed. Outcome: Progressing Note: Evaluation of progress towards goal: Lap Layer has been assessed and monitored for signs and symptoms of infection. Administered medications as ordered. Monitored all insertion sites. Problem: Knowledge Deficit Goal: Patient/patient client relations representative demonstrates understanding of disease process, treatment plan,medications, and discharge instructions Description: INTERVENTIONS 1. Complete learning assessment and assess knowledge base 2. Provide teaching at level of understanding 3. Provide teaching via preferred learning method(s) Outcome: Progressing Note: Evaluation of progress towards goal: Lap Layer has assessed that patient has been provided teaching at level of understanding. Provided teaching via preferred learning methods. Completed learning assessment and assessed knowledge base. Problem: Discharge Planning Goal: Discharge to post-acute care, other facility, or home with appropriate resources Description: Patient's goal is: INTERVENTIONS 1. Conduct assessment to determine patient/family and health care team treatment goals, and need for post-acute services based on payer coverage, community resources, and patient preferences, and barriers to discharge 2. Coordinate with Social work, Care Navigation, and Utilization Review to arrange appropriate level of services according to patient's needs based on patient preference and payer coverage in collaboration with the physician and health care team 3. Address psychosocial, clinical, and financial barriers to discharge as identified in assessment in conjunction with the patient/family and health care team 4. Consult appropriate ancillary services (i.e.. PT/OT/ST, etc) as needed 5. Communicate with and update the patient/family, physician, and health care team regarding progress on the discharge plan 6. Identify discharge learning needs (meds, wound care, etc). 7. Arrange for needed discharge transportation as appropriate Outcome: Progressing Note: Evaluation of progress towards goal: Lap [place] assessed the patient for the following. Identify discharge learning needs. Arrange for needed discharge transportation as appropriate. Coordinate with social work and care navigation to arrange appropriate level of services according to patient's needs based on patient preference. Problem: Potential for Compromised Skin Integrity Goal: Skin integrity is maintained or improved Description: Patient's goal is: INTERVENTIONS 1. Perform initial skin assessment on admission and as needed 2. Turn patient every 2 hours and PRN 3. Relieve pressure to bony prominences 4. Avoid shearing 5. Keep skin clean and dry 6. Alternate a full bath with partial baths for elderly 7. Apply lotion/moisturizer on skin 8. Monitor patient's hygiene practices 9. Float heels 10. Collaborate with interdisciplinary team and initiate plans and interventions as needed Outcome: Progressing Note: Evaluation of progress towards goal: Lap Layer assessed that patient is being repositioned Q2. Keeping skin clean and dry. Relieving pressure to bony prominences. Goal: Patient's nutritional intake is adequate Description: Patient's goal is: INTERVENTIONS 1. Assess and monitor food intake and supplements, patient food preferences, nausea, vomiting, labs, oral cavity (gums, teeth, tongue, mucosa), proper denture fit, and cultural beliefs 2. Monitor for signs of hypoglycemia and hyperglycemia 3. Collaborate with interdisciplinary team and initiate plan and interventions as ordered 4. Monitor patient's weight 5. Assist patient with meals/food selection 6. Assist patient with eating 7. Allow adequate time for meals 8. Provide pleasant environment during mealtime 9. Increase social contact during mealtimes 10. Plan activities to conserve energy 11. Encourage/perform oral hygiene as appropriate 12. Encourage patient to take dietary supplement as ordered 13. Collaborate with clinical golf club head inspector and adjuster 14. Include patient/ patient's client relations representative in decisions related to nutrition Outcome: Progressing Note: Evaluation of progress towards goal: Lap Layer assessed that patient is allowed adequate time for meals. Provided pleasant environment during mealtime. Encouraged/perform oral hygiene as appropriate. Problem: Urinary Incontinence Goal: Perineal skin integrity is maintained or improved Description: INTERVENTIONS 1. Assess genitourinary system, perineal skin, labs (urinalysis), and history of incontinence to include past management, aggravating, and alleviating factors 2. Keep skin clean and dry 3. Apply skin protectant 4. Develop skin care regimen 5. Provide privacy when changing patients incontinence device to maintain their dignity 6. Consider placing an indwelling catheter 7. Collaborate with interdisciplinary team and initiate plans and interventions as needed Outcome: Progressing Note: Evaluation of progress towards goal: Lap Layer assessed the patient for the following. Keep skinclean and dry. Assess perineal skin. Maintain external catheter. Problem: Moderate - High Risk Fall Score Description: Disla Fall Score of =/> 25 or indicated by [facility] Assessment Goal: Patient should be free from fall Description: Interventions: 1. [place] to environment 2. Hourly rounds addressing the 4 P's (Pain, Positioning, Possessions, Potty) 3. Clear area of hazards (spills, clutter, electrical cords, unnecessary equipment) 4. Place equipment (bed & TV controls, call light, phone, urinal) within reach 5. Encourage patient to wear glasses and hearing aides as appropriate 6. Maintain bed in lowest position 7. Lock wheels on bed/wheelchair 8. Provide adequate lighting, including night light 9. Assess need for additional bedding, food/fluids, pain med's prior to sleep/routinely 10. Provide gripper slippers or personal non-skid footwear 11. Teach patient and patient client relations representative to maintain environment for safety and engage in all aspects of fall prevention program 12. Remind patient to call for help before getting out of bed 13. Initiate bed/chair/exit alarms supportive devices as appropriate, (chair wedge, no-skid floor mat, raised edge mattress, hip protectors) 14. Locate patient bed assignment for optimal visualization 15. Evaluate and identify Safe Patient Handling Equipment needs 16. Provide supervision when out of bed or chair 17. Utilize gait belt as needed to assist with ambulation 18. Place adaptive equipment (cane, walker) within reach 19. Request patient client relations representative bring adaptive equipment/mobility aids from home or obtain and provide as needed 20. Consult pharmacy regarding effects of med's affecting mobility, cognition, and alternatives 21. Obtain physician order for PT if risk factors associated with mobility are present 22. Obtain physician order for OT as appropriate 23. Utilize diversional activities 24. Educate patient and patient client relations representative how to maintain a safe environment during visitationtimes (notify nurse prior to leaving bedside) 25. Consider appropriateness of medical or non-medical lab director 26. Set up voiding schedule as appropriate (every 2 hours) Outcome: Progressing Note: Evaluation of progress towards goal: Lap Layer has been assessed in the following. [place] to environment, hourly rounds addressing the 4 P's (Pain, Positioning, Possessions, Potty). Maintain bed in lowest position. Remind patient to call for help before getting out of bed. * PT/OT/STAFFING ASSOCIATE - MELISSA Devlin/John - 04/25/2025 12:07 PM EDT Occupational Therapy Treatment Discharge Recommendations for Safe Patient Transition Discharge Recommendations: Post acute - moderate Post Acute Moderate Rehab Needs: Recommend moderate intensity rehab, Tolerate 1- 2 hrs of therapy 3-5 days/wk, Subacute or chronic functional impairment 04/25/25 1131 UE ROM UE ROM exercises performed? No (Deferred due to fatigue after standing/ambulation.) 6 Clicks: Daily Activity Putting on and taking off regular lower body clothing?: Total Bathing (including washing, rinsing, drying)?: A lot Toileting, which includes using toilet, bedpan or urinal?: Total Putting on and taking off regular upper body clothing?: A lot Taking care of personal grooming such as brushing teeth?: A lot Eating meals?: A lot Scoring Daily Activity Raw Score: 10 CMS G Code Modifier: CL OT Treatment/Interventions: Functional transfer training, ADL retraining, UE strengthening/ROM, Cognitive reorientation, Endurance training, Equipment eval/education, Patient/family training, Balance, Bed mobility, Gait training, Compensatory technique education, Functional activities OT Frequency: 4-5days/week OT Duration: LOS Assessment Patient Assessment Therapy Problem List: Decreased balance, Decreased endurance, Decreased mobility, Decreased safe judgement during ADL, Decreased LE strength Patient Response to Treatment: Slow progress, decreased activity tolerance Mood/Affect: Anxious Rehab Prognosis: Good, With continued OT status post acute discharge Visit RN Communication: Yes Medical Record Reviewed: Yes OT Type of Visit: Treatment Precautions Activity: early mobility: pass, ok per DICK Grewal for therapy Equipment: gait belt, RW, repositioning sling, ex cath Telemetry/Patrol Police Lieutenant: No Oxygen Used: room air Other: (S) high fall risk, significant anxiety/panic attacks with mobility, 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, B AFOs Pain Assessment Pain Assessment: 0-10 Pain Score: 7 Pain Location: Knee Pain Orientation: Left Pain Intervention(s): Cold applied Response to Interventions: Quiet Multiple Pain Sites: No ADL / IADL Hand Dominance: Right Where Assessed: Chair Grooming Assistance: Min assist, Standby assist Grooming Deficit: Verbal cueing, Supervision/safety, Increased time to complete, Wash/dry face, Oral hygiene, Other (Comment) (Max vc's for task initiation, pt then able to complete tasks) Footwear Assistance: Max assist (seated EOB) Footwear Deficit: Orthotic/brace, R sock, L sock, R shoe, L shoe Other: Pt required Max A for footwear assistance while seated EOB, Max A to doff slipper socks, MaxA for donning socks/AFO's and L and R shoe. Pt required Min A for UB grooming overall, constant verbal cues for task initiation of oral hygiene, vc's to not swallow rinse water, increased time for completion. Pt completed face wash/dry with SBA. Home Management - IADL Other: Pt required Max A for footwear assistance while seated EOB, Max A to doff slipper socks, MaxA for donning socks/AFO's and L and R shoe. Pt required Min A for UB grooming overall, constant verbal cues for task initiation of oral hygiene, vc's to not swallow rinse water, increased time for completion. Pt completed face wash/dry with SBA. Hearing / Speech / Vision Hearing: Within Functional Limits, No hearing aid Speech: Delayed responses, Other (Comment) (soft spoken) Current Vision: Wears glasses for distance only Cognition Arousal/Alertness: Delayed responses to stimuli Attention Span: Attends with cues to redirect Orientation Level: Oriented to person Following Commands: Follows one step commands with repetition, Follows one step commands with increased time Safety Judgment: Decreased awareness of need for assistance, Decreased awareness of need for safety Awareness of Errors: Assistance required to correct errors made, Assistance required to identify errors made, Decreased awareness of errors Other: Pt voiced having a fear of falling resulting in increased anxiety. Edu pt on safety with transfers, fall prevention to decrease anxiety. Pt required encouragement and reassurance throughout toassist in reducing anxiety with transfers/standing. Bed Mobility Rolling: Mod assist, Verbal cues, Right Supine to Sit: Mod assist, Verbal cues (x2) Other: Pt completed rolling to R side with Mod A, vc's for hand placement to bed rail and mgmt of BLEs. Pt completed supine to sit with Mod A x2 with vc's for technique, assist to manage BLEs over EOB, assist to manage UB. Pt able to sit EOB without LOB. Pt left up in chair upon completion of session, RN aware, call light in reach, needs met. Transfers Sit to Stand: Max assist (x2) Stand to Sit: Max assist, Verbal cues, Visual cues (x2) Bed to Chair: Max assist, Verbal cues (x2) Other: Pt completed STS transfers with Max A x2 with vc's for hand placement and technique, elevated bed height, encouragement and reassurance throughout. Pt with post lean upon standing, required min A x2 for pt to achieve [place]Y while standing, ~1 min x2 trials standing this date, Min A x2 to maintain standing at RW. Gait Gait Assistance: Max assist (x2) Assistive Device: Rolling walker Gait Distance: 2' to chair Limiting Factors to Gait: Fatigue, Weakness, Cognition/difficulty following directions Other: Pt tolerated taking steps from bed to chair, Max A x2 with VVT cues for safety with managingRW, cues for sequencing, encouragement and reassurance throughout. Balance Sitting Balance: Static: Fair (+) Sitting Balance: Dynamic: Fair Standing Balance: Static: Poor Standing Balance: Dynamic: Poor Other: Pt able to sit unsupported EOB without UE support ~15 min without LOB. Pt required BUE support to RW in standing and during ambulation, unsteady, no overt LOB. Activity Tolerance Endurance: Tolerates >30 minutes activity with rest breaks Other: Pt with fair - tolerance to increased activity this date. Pt required increased time and effort throughout tasks, encouragement and reassurance required to reduce anxiety. Plan Occupational Therapy Care Plan Occupational Therapy Care Plan (Active) Template: OT - Occupational Therapy Problem: Activity Tolerance Dates: Start: 04/23/25 Disciplines: OT Goal: Tolerate > 30 minutes of activity WITH rest breaks Dates: Start: 04/23/25 Expected End: 05/22/25 Description: Goal Description: Disciplines: OT Outcomes Date/Time User Outcome 04/25/25 1141 FAITH Devlin Progressing Goal Note filed on 04/25/25 1141 by FAITH Devlin Evaluation of progress towards goal: Problem: Bed Mobility Dates: Start: 04/23/25 Disciplines: OT Goal: Patient will perform bed mobility with Contact Guard Dates: Start: 04/23/25 Expected End: 05/22/25 Description: Goal Description: Disciplines: OT Outcomes Date/Time User Outcome 04/25/25 1141 FAITH Devlin Progressing Goal Note filed on 04/25/25 114 by FAITH Devlin Evaluation of progress towards goal: Problem: Cognition Dates: Start: 04/23/25 Disciplines: OT Goal: Improve cognition Dates: Start: 04/23/25 Expected End: 05/22/25 Description: Pt will demo improved safety awareness during tx sessions as evidenced by lack of needfor vc's for safety to increase independence in all functional activity. Disciplines: OT Outcomes Date/Time User Outcome 04/25/25 1141 FAITH Devlin Not Progressing Goal Note filed on 04/25/25 114 by FAITH Devlin Evaluation of progress towards goal: Problem: Functional Mobility Dates: Start: 04/23/25 Disciplines: OT Goal: Patient will perform functional mobility with Contact Guard Dates: Start: 04/23/25 Expected End: 05/22/25 Description: Goal Description: Disciplines: OT Outcomes Date/Time User Outcome 04/25/25 1141 FAITH Devlin Not Progressing Goal Note filed on 04/25/25 1141 by FAITH Devlin Evaluation of progress towards goal: Problem: Other (Customize) Dates: Start: 04/23/25 Disciplines: OT Goal: Improve Dates: Start: 04/23/25 Expected End: 05/22/25 Description: Pt will demo setup level with all UB ADLs using AE prn to facilitate return to PLOF. Disciplines: OT Outcomes Date/Time User Outcome 04/25/25 1141 FAITH Devlin Progressing Goal Note filed on 04/25/25 114 by FAITH Devlin Evaluation of progress towards goal: Problem: Other (Customize) Dates: Start: 04/23/25 Disciplines: OT Goal: Improve Dates: Start: 04/23/25 Expected End: 05/22/25 Description: Pt will complete all LB ADLs with Min A level or better using AE prn to facilitate return to PLOF Disciplines: OT Problem: Sitting Balance Dates: Start: 04/23/25 Disciplines: OT Goal: Improve balance to good Dates: Start: 04/23/25 Expected End: 05/22/25 Description: Static Dynamic Disciplines: OT Outcomes Date/Time User Outcome 04/25/25 1141 FAITH Devlin Progressing Goal Note filed on 04/25/25 1141 by FAITH Devlin Evaluation of progress towards goal: Problem: Standing Balance Dates: Start: 04/23/25 Disciplines: OT Goal: Improve balance to fair Dates: Start: 04/23/25 Expected End: 05/22/25 Description: Static Dynamic Disciplines: OT Outcomes Date/Time User Outcome 04/25/25 1141 FAITH Devlin Progressing Goal Note filed on 04/25/25 1141 by FAITH Devlin Evaluation of progress towards goal: Problem: Strength Dates: Start: 04/23/25 Disciplines: OT Goal: Improve strength Dates: Start: 04/23/25 Expected End: 05/22/25 Description: Pt will demo good understanding of BUE strengthening HEP to increase endurance for functional transfers, mobility, and ADL with RW. Disciplines: OT Outcomes Date/Time User Outcome 04/25/25 1141 FAITH Devlin Progressing Goal Note filed on 04/25/25 1141 by FAITH Devlin Evaluation of progress towards goal: Problem: Transfers Dates: Start: 04/23/25 Disciplines: OT Goal: Patient will perform transfers with Contact Guard Dates: Start: 04/23/25 Expected End: 05/22/25 Description: Goal Description: Disciplines: OT Outcomes Date/Time User Outcome 04/25/25 1141 FAITH Devlin Progressing Goal Note filed on 04/25/25 1141 by FAITH Devlin Evaluation of progress towards goal: Occupational Therapy Care Plan (Resolved) There are no resolved problems. Principal Problem: Altered mental status Cosigned by RICHIE Haji at 04/25/2025 4:05 PM EDT Associated attestation - Debbie Anderson OTR/L - 04/25/2025 4:05 PM EDT I have reviewed and agree with this note and education documentation for this visit. * PT/OT/STAFFING ASSOCIATE - Jennie Johnson, [employer] CLEARING AGENT - 04/25/2025 11:51 AM EDT Physical Therapy Treatment Discharge Recommendations for Safe Patient Transition Discharge Recommendations: Post acute - moderate Post Acute Moderate Rehab Needs: Recommend moderate intensity rehab, Tolerate 1- 2 hrs of therapy 3-5 days/wk, Subacute or chronic functional impairment Current Impairments Informing Therapy Recommendation: Ambulation status/safety, Cognition, Fall risk, Endurance level 6 Clicks: Basic Mobility Turning from your back to your side while in a flat bed without using bed rails?: A lot Moving from lying on your back to sitting on side of flat bed without using bed rails?: A lot Moving to and from bed to a chair (including w/c)?: A lot Standing up from a chair using your arms (e.g. w/c or bedside chair)?: A lot To walk in hospital room?: Total Climbing 3-5 steps with a railing?: Total Scoring 6 Clicks: Basic Mobility Raw Score: 10 CMS G Code Modifier: CL PT Treatment/Interventions: Functional transfer training, LE strengthening/ROM, Endurance training,Patient/family training, Equipment eval/education, Balance, Gait training, Bed mobility, Functionalactivities PT Frequency: 4-5days/week Assessment Patient Assessment Patient Response to Treatment: Slow progress, decreased activity tolerance Visit RN Communication: Yes Medical Record Reviewed: Yes PT Type of Visit: Treatment Precautions Activity: early mobility: pass, ok to see for therapy per RNEdwin Equipment: gait belt, nic stedy, maxi matt repositioning sling, ext cath Telemetry/Patrol Police Lieutenant: No Oxygen Used: room air Other: high fall risk, significant anxiety/panic attacks with mobility, 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,B AFOs Pain Assessment Pain Assessment: 0-10 Pain Score: 7 Pain Location: Knee Pain Orientation: Left Pain Intervention(s): Cold applied, Repositioned, Ambulation/increased activity (RN notified) Cognition Following Commands: Follows one step commands with repetition, Follows one step commands with increased time Safety Judgment: Decreased awareness of need for assistance, Decreased awareness of need for safety Awareness of Errors: Assistance required to correct errors made, Assistance required to identify errors made, Decreased awareness of errors Insight of Deficits: Decreased awareness of deficits Bed Mobility Rolling: Mod assist, Verbal cues, Right Supine to Sit: Mod assist, Verbal cues (x2) Sit to Supine: Unable to assess (Pt up in chair with call light and spouse present. RN notified.) Other: HOB elevated, use of rail. Cues for log roll technique. Assist for trunk control and LE management. Transfers Sit to Stand: Max assist, Verbal cues, Visual cues, Tactile cues (x2) Stand to Sit: Max assist, Verbal cues, Visual cues, Tactile cues (x2) Bed to Chair: Max assist, Verbal cues (x2) Other: Patient stood from elevated bed height to RW with Max x2. VVT cues for safety with hand placement. Increase posterior lean noted upon standing, cues and assist to correct and maintian midline.Patient stood at walker ~1 minute x2 focusing on improved standing tolerance and balance. Min x2 for balance. Gait Base of Support: Wide Pattern: Decreased beryl, R Decreased heel strike, L Decreased heel strike, R Decreased foot clearance, L Decreased foot clearance Gait Assistance: Max assist (x2) Assistive Device: Rolling walker Gait Distance: 2' to chair Limiting Factors to Gait: Fatigue, Weakness, Decreased safety, Cognition/difficulty following directions Other: Patient unsteady, short shuffling steps. Cues for sequencing and safety with walker. Assist for safety, balance, and walker management. Balance Sitting Balance: Static: Fair (Fair+) Sitting Balance: Dynamic: Fair Standing Balance: Static: Poor Standing Balance: Dynamic: Poor Other: Patient sat up at EOB ~15 minutes total to prepare for transfer and ADL focusing on improvedactivity tolerance. SBA for balance, no loss of balance noted. Activity Tolerance Endurance: Tolerates >30 minutes activity with rest breaks Other: Patient verbalized fear of falling. Education provided on safety with mobility. Encouragement needed and cues for proper breathing technique and safety. Plan Physical Therapy Care Plan Physical Therapy Care Plan (Active) Template: PT - Physical Therapy Problem: Activity Tolerance Dates: Start: 04/23/25 Disciplines: PT Goal: Tolerate > 30 minutes of activity WITH rest breaks Dates: Start: 04/23/25 Expected End: 06/04/25 Description: To improve overall strength and endurance for functional mobility. Disciplines: PT Outcomes Date/Time User Outcome 04/25/25 Ayn Johnson PTA Progressing Problem: Bed Mobility Dates: Start: 04/23/25 Disciplines: PT Goal: Patient will perform bed mobility with Moderate Assist Dates: Start: 04/23/25 Expected End: 06/04/25 Description: Goal Description: Disciplines: PT Outcomes Date/Time User Outcome 04/25/25 Any Johnson PTA Progressing Problem: Gait Dates: Start: 04/23/25 Disciplines: PT Goal: Patient will perform gait with Minimum Assist Dates: Start: 04/23/25 Expected End: 06/04/25 Description: With__RW__,__20__feet Goal Description: Disciplines: PT Outcomes Date/Time User Outcome 04/25/25 Any Johnson PTA Progressing Problem: Sitting Balance Dates: Start: 04/23/25 Disciplines: PT Goal: Improve balance to good Dates: Start: 04/23/25 Expected End: 06/04/25 Description: To reduce fall risk while sitting EOB Disciplines: PT Outcomes Date/Time User Outcome 04/25/25 Any Johnson PTA Progressing Problem: Standing Balance Dates: Start: 04/23/25 Disciplines: PT Goal: Improve balance to fair Dates: Start: 04/23/25 Expected End: 06/04/25 Description: With use of AD to reduce fall risk during ambulation Disciplines: PT Outcomes Date/Time User Outcome 04/25/25 Any Johnson PTA Progressing Problem: Strength Dates: Start: 04/23/25 Disciplines: PT Goal: Improve strength Dates: Start: 04/23/25 Expected End: 06/04/25 Description: Pt will complete 15 reps AROM BLE exercises to facilitate increased independence with transfers Disciplines: PT Problem: Transfers Dates: Start: 04/23/25 Disciplines: PT Goal: Patient will perform transfers with Minimum Assist Dates: Start: 04/23/25 Expected End: 06/04/25 Description: Goal Description: Disciplines: PT Outcomes Date/Time User Outcome 04/25/25 Any Johnson PTA Progressing Physical Therapy Care Plan (Resolved) There are no resolved problems. Principal Problem: Altered mental status Cosigned by Nir Lomeli PT at 04/26/2025 7:01 AM EDT Associated attestation - Nir Lomeli, PT - 04/26/2025 7:01 AM EDT I have reviewed and agree with this note and education documentation for this visit. * Plan of Care - Fe Marin RN - 04/24/2025 10:57 PM EDT Problem: Pain Goal: Patient goal is pain score less than 4, able to rest, and participant in treatment plan as appropriate Description: INTERVENTIONS: 1. Encourage patient or legal client relations representative to report early pain and ask for pain medicine when needed 2. Assess pain using appropriate pain scale and include the scale used when documenting 3. Administer analgesics based on type and severity of pain and evaluate response within appropriate time frame 4. Implement non-pharmacological measures as appropriate and evaluate response 5. Consider cultural and social influences on pain and pain management 6. Notify LIP if interventions ineffective or patient reports new pain 7. Monitor vital signs including pulse ox, end-tidal CO2 based on pain intervention 8. Reassess pain per policy 9. Teach patient or legal client relations representative interventions for comforting Outcome: Progressing Note: Evaluation of progress towards goal: Patient's pain assessed using numerical scale 0-10. Nonpharmacological and phamacological measures used to manage pain as ordered. Will continue to assess and monitor as necessary Problem: Safety Goal: Patient will be injury free during hospitalization Description: INTERVENTIONS: 1. Assess patient's risk for falls and implement fall prevention plan of care per policy 2. Provide and maintain a safe environment 3. Proper use of double Identifiers 4. Medication administration using the 5 rights 5. Hand hygiene 6. Specimens are labeled at the bedside 7. Instruct patient/ patient client relations representative about use of safety devices 8. Include patient/ patient client relations representative in decisions related to safety Outcome: Progressing Note: Evaluation of progress towards goal: No events reported during shift. Bed is locked and in lowest position with side rails up x2, call light and personal items are within reach, hourly roundingcompleted, non skid socks maintained. Problem: Infection Goal: Absence of infection during hospitalization Description: INTERVENTIONS 1. Assess and monitor for signs and symptoms of infection. 2. Monitor lab/diagnostic results. 3. Monitor all insertion sites i.e., indwelling lines, tubes and drains. 4. Monitor endotracheal (as able) and nasal secretions for changes in amount and color. 5. Administer medications as ordered. 6. Instruct and encourage patient and family to use good hand hygiene technique. 7. Identify and instruct patient/patient client relations representative in use of appropriate isolation precautionsfor identified infection/symptoms. 8. Provide and discuss with patient/patient client relations representative on educational MDRO sheet. 9. Encourage and monitor nutritional status daily and consult golf club head inspector and adjuster if indicated. 10. Implement neutropenic guidelines as needed. Outcome: Progressing Note: Evaluation of progress towards goal: Handwashing and standard precautions maintained, patientremains free of signs and symptoms of infection, patient is afebrile, IV insertion site monitored. Will continue to monitor for signs and symptoms of infection. Problem: Knowledge Deficit Goal: Patient/patient client relations representative demonstrates understanding of disease process, treatment plan,medications, and discharge instructions Description: INTERVENTIONS 1. Complete learning assessment and assess knowledge base 2. Provide teaching at level of understanding 3. Provide teaching via preferred learning method(s) Outcome: Progressing Note: Evaluation of progress towards goal: Patient states understanding of plan of care, medications, and discharge plans at this time. Will continue to monitor and educate as necessary * Plan of Care - Uri Valenzuela RN - 04/24/2025 5:37 PM EDT Problem: Safety Goal: Patient will be injury free during hospitalization Description: INTERVENTIONS: 1. Assess patient's risk for falls and implement fall prevention plan of care per policy 2. Provide and maintain a safe environment 3. Proper use of double Identifiers 4. Medication administration using the 5 rights 5. Hand hygiene 6. Specimens are labeled at the bedside 7. Instruct patient/ patient client relations representative about use of safety devices 8. Include patient/ patient client relations representative in decisions related to safety Outcome: Progressing Note: Evaluation of progress towards goal: Lap Layer assessed that patient has been provided and maintained a safe environment. Medication administration using the 5 rights. Proper use of double identifiers. Problem: Infection Goal: Absence of infection during hospitalization Description: INTERVENTIONS 1. Assess and monitor for signs and symptoms of infection. 2. Monitor lab/diagnostic results. 3. Monitor all insertion sites i.e., indwelling lines, tubes and drains. 4. Monitor endotracheal (as able) and nasal secretions for changes in amount and color. 5. Administer medications as ordered. 6. Instruct and encourage patient and family to use good hand hygiene technique. 7. Identify and instruct patient/patient client relations representative in use of appropriate isolation precautionsfor identified infection/symptoms. 8. Provide and discuss with patient/patient client relations representative on educational MDRO sheet. 9. Encourage and monitor nutritional status daily and consult golf club head inspector and adjuster if indicated. 10. Implement neutropenic guidelines as needed. Outcome: Progressing Note: Evaluation of progress towards goal: Lap Layer has been assessed and monitored for signs and symptoms of infection. Administered medications as ordered. Monitored all insertion sites. Problem: Knowledge Deficit Goal: Patient/patient client relations representative demonstrates understanding of disease process, treatment plan,medications, and discharge instructions Description: INTERVENTIONS 1. Complete learning assessment and assess knowledge base 2. Provide teaching at level of understanding 3. Provide teaching via preferred learning method(s) Outcome: Progressing Note: Evaluation of progress towards goal: Lap Layer has assessed that patient has been provided teaching at level of understanding. Provided teaching via preferred learning methods. Completed learning assessment and assessed knowledge base. Problem: Discharge Planning Goal: Discharge to post-acute care, other facility, or home with appropriate resources Description: Patient's goal is: INTERVENTIONS 1. Conduct assessment to determine patient/family and health care team treatment goals, and need for post-acute services based on payer coverage, community resources, and patient preferences, and barriers to discharge 2. Coordinate with Social work, Care Navigation, and Utilization Review to arrange appropriate level of services according to patient's needs based on patient preference and payer coverage in collaboration with the physician and health care team 3. Address psychosocial, clinical, and financial barriers to discharge as identified in assessment in conjunction with the patient/family and health care team 4. Consult appropriate ancillary services (i.e.. PT/OT/ST, etc) as needed 5. Communicate with and update the patient/family, physician, and health care team regarding progress on the discharge plan 6. Identify discharge learning needs (meds, wound care, etc). 7. Arrange for needed discharge transportation as appropriate Outcome: Progressing Note: Evaluation of progress towards goal: Lap Layer assessed the patient for the following. Identify discharge learning needs. Arrange for needed discharge transportation as appropriate. Coordinate with social work and care navigation to arrange appropriate level of services according to patient's needs based on patient preference. Problem: Urinary Incontinence Goal: Perineal skin integrity is maintained or improved Description: INTERVENTIONS 1. Assess genitourinary system, perineal skin, labs (urinalysis), and history of incontinence to include past management, aggravating, and alleviating factors 2. Keep skin clean and dry 3. Apply skin protectant 4. Develop skin care regimen 5. Provide privacy when changing patients incontinence device to maintain their dignity 6. Consider placing an indwelling catheter 7. Collaborate with interdisciplinary team and initiate plans and interventions as needed Outcome: Progressing Note: Evaluation of progress towards goal: Lap Layer assessed the patient for the following. Keep skinclean and dry. Assess perineal skin. Maintain external catheter. Problem: Moderate - High Risk Fall Score Description: Disla Fall Score of =/> 25 or indicated by [facility] Assessment Goal: Patient should be free from fall Description: Interventions: 1. [place] to environment 2. Hourly rounds addressing the 4 P's (Pain, Positioning, Possessions, Potty) 3. Clear area of hazards (spills, clutter, electrical cords, unnecessary equipment) 4. Place equipment (bed & TV controls, call light, phone, urinal) within reach 5. Encourage patient to wear glasses and hearing aides as appropriate 6. Maintain bed in lowest position 7. Lock wheels on bed/wheelchair 8. Provide adequate lighting, including night light 9. Assess need for additional bedding, food/fluids, pain med's prior to sleep/routinely 10. Provide gripper slippers or personal non-skid footwear 11. Teach patient and patient client relations representative to maintain environment for safety and engage in all aspects of fall prevention program 12. Remind patient to call for help before getting out of bed 13. Initiate bed/chair/exit alarms supportive devices as appropriate, (chair wedge, no-skid floor mat, raised edge mattress, hip protectors) 14. Locate patient bed assignment for optimal visualization 15. Evaluate and identify Safe Patient Handling Equipment needs 16. Provide supervision when out of bed or chair 17. Utilize gait belt as needed to assist with ambulation 18. Place adaptive equipment (cane, walker) within reach 19. Request patient client relations representative bring adaptive equipment/mobility aids from home or obtain and provide as needed 20. Consult pharmacy regarding effects of med's affecting mobility, cognition, and alternatives 21. Obtain physician order for PT if risk factors associated with mobility are present 22. Obtain physician order for OT as appropriate 23. Utilize diversional activities 24. Educate patient and patient client relations representative how to maintain a safe environment during visitationtimes (notify nurse prior to leaving bedside) 25. Consider appropriateness of medical or non-medical lab director 26. Set up voiding schedule as appropriate (every 2 hours) Outcome: Progressing Note: Evaluation of progress towards goal: Lap Layer has been assessed in the following. [place] to environment, hourly rounds addressing the 4 P's (Pain, Positioning, Possessions, Potty). Maintain bed in lowest position. Remind patient to call for help before getting out of bed. * Discharge Planning Note - Rhea Dueñas - 04/24/2025 12:56 PM EDT DISCHARGE PLANNING NOTE Prior auth submitted to: [facility] Medicare Via: [employer] On behalf of : Clarit[employer] [facility] P# [phone]; F#[phone] via [employer] Ref# [id number] * Discharge Planning Note - Ricky Mclaughlin RN - 04/24/2025 12:26 PM EDT Ongoing Assessment for Discharge Needs Reviewed discharge milestones and patient needs related to discharge plan. Current estimated discharge date of Apr 25, 2025 has been reviewed by treatment team. Per RN during discharge transition rounds, barriers to discharge are: video swallow pending. Discharge Plan: SNF- [facility]- Confirmed with patient and spouse of discharging to [facility]- [facility]. Tasked [facility] to start Pre-cert. Await pre- cert approval. Newspaper Publisher will continue to follow for any discharge needs. - RICKY MCLAUGHLIN RN 04/24/25 12:44 PM Ongoing Assessment for Discharge Needs Flowsheet Row Most Recent Value Referral To Community Referrals / Resources Provided Denies needs Services Requested Patient expects to be discharged to: SNF vs Home with [facility] Does the patient wish to have family/friend/caregiver involved in their discharge planning? Yes Discharge Disposition SNF Facility/Service Name [facility] SNF Name [facility] Accepted? Yes Does the patient need discharge transportation arranged? Yes 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 Arranged Ambulance * PT/OT/STAFFING ASSOCIATE - Ramya Sheppard CCC-STAFFING ASSOCIATE - 04/24/2025 10:02 AM EDT Speech Therapy Videofluoroscopic Swallow Study Evaluation and Treatment Note Discharge Recommendations for Safe Patient Transition STAFFING ASSOCIATE Post Discharge Therapy Recommendations: Continue ST services Recommendations Diet Level: Regular Liquid Level: Level 0 Thin (NO STRAWS) Compensatory Strategies: Small sips/bites, One sip/bite at a time, No straws, Follow aspiration precautions Supervision/Positioning: Patient at 90 degress for all PO intake (including medication), Patient toremain upright 15 minutes after meals Medications: In applesauce/puree Impressions Oral Phase: Mild Pharyngeal Phase: Mild Functional Oral Intake Scale: Total PO intake. No restrictions Plan Frequency: 1-2days/week Duration: until discharge Treatments/Modalities: Safety strategies Need for skilled Speech Language Pathology Services to address deficits in feeding/swallowing due to a status decline resulting from AMS. Pt educated on purpose of exam, contrast administration, and procedural techniques prior to initiation of exam. Diagnostic therapy completed following exam. Pt educated on diet recommendations, plan of care, and encouraged to use safety strategies in order to maintain safe PO intake. Prognosis Services: Skilled STAFFING ASSOCIATE services to address above deficits Prognosis/Potential: Good Considerations: Previous level of function Assessment Baseline Assessment Allergies Marked As Reviewed: Complete Consistencies Tested Views: Lateral position Level 0 Thin: Spoon, Cup, Straw Level 4 Pureed: Spoon Level 6 Soft & Bite-Sized: Spoon Regular Tested: Bite Modified Barium Swallow Impairment Profile (MBSImP) Oral Impairment: Yes Component 1: Lip Closure: no labial escape Component 2: Tongue Control During Bolus Hold: escape to lateral buccal cavity/floor of mouth Component 3: Bolus Preparation/Mastication: disorganized chewing/mashing with solid pieces of bolusunchewed Component 4: Bolus Transport/Lingual Motion: delayed initiation of tongue motion Component 5: Oral Residue: trace residue lining oral structures Component 6: Initiation of Pharyngeal Swallow: bolus head in pyriforms Pharyngeal Impairment: Yes Component 7: Soft Palate Elevation: no bolus between soft palate/posterior pharyngeal wall Component 8: Laryngeal Elevation: partial superior movement of thyroid cartilage/partial approximation of arytenoids to epiglottic petiole Component 9: Anterior Hyoid Excursion: partial anterior movement Component 10: Epiglottic Movement: partial inversion Component 11: Laryngeal Vestibular Closure - Height of the Swallow: incomplete, narrow column of contrast/air in laryngeal vestibule Component 12: Pharyngeal Stripping Wave: present - diminished Component 13: Pharyngeal Contraction (A/P view only): could not be determined due to logistical reasons not related to physiologic impairment Component 14: Pharyngoesophageal Segment Opening: partial distension/partial duration, partial obstruction of flow Component 15: Tongue Base Retraction: trace column of contrast/air between tongue base and posterior pharyngeal wall Component 16: Pharyngeal Residue: trace residue within or on pharyngeal structures MBSImP Overall Impression Scores Oral Impairment Total: 8 Pharyngeal Impairment Total: 8 Penetration/Aspiration Scale Penetration/Aspiration Scale Performed: Yes Level 0 Thin: Contrast entered the airway, contacted the vocal folds, and was not ejected from the airway, Contrast did not enter the airway Level 4 Pureed: Contrast did not enter the airway Level 6 Soft & Bite-Sized: Contrast did not enter the airway Regular: Contrast did not enter the airway Pain Assessment Pain Assessment: No/denies pain Plan Diagnosis Code Swallowing: R13.12 Dysphagia, oropharyngeal phase Speech Therapy Care Plan Speech Therapy Care Plan (Active) Template: ST - Dysphagia Problem: Swallowing Dates: Start: 04/23/25 Disciplines: STAFFING ASSOCIATE Goal: LTG: Patient will maintain adequate nutrition/ hydration with optimum safety and efficiency of swallowing function of oral intake without overt signs/symptoms of aspiration for the highest appropriate diet level Dates: Start: 04/23/25 Expected End: 05/28/25 Disciplines: STAFFING ASSOCIATE Outcomes Date/Time User Outcome 04/24/25 08LAUREN Aden Progressing 04/23/25 1115 LAUREN Gaxiola Progressing Goal: STG: Patient will tolerate therapeutic feeding trials of advanced textures with 90% accuracy with minimal cueing Dates: Start: 04/23/25 Expected End: 05/28/25 Disciplines: STAFFING ASSOCIATE Outcomes Date/Time User Outcome 04/24/25 08LAUREN Aden Progressing 04/23/25 1115 LAUREN Gaxiola Progressing Speech Therapy Care Plan (Resolved) There are no resolved problems. Principal Problem: Altered mental status * PT/OT/STAFFING ASSOCIATE - LAUREN Gaxiola - 04/24/2025 8:47 AM EDT Speech Therapy Dysphagia Treatment Note Assessment: Current Diet Tolerance: NPO Progress: improving Pain Assessment Pain Assessment: No/denies pain Recommendations Diet: Level 4 pureed diet, no liquids (until VFSS) Discharge: Continued ST Services Precautions Aspiration Plan: Plan of Care: continue with current plan of care Continue with Current Diet: yes Diet: Level 4 Pureed Liquids: No liquids Safety Strategies: medications in applesauce Subjective Setting: bedside Arrival Status: lethargic Mental Status: confused/disoriented Therapy Tolerance: fair Change in Medical Status: no Received Recent Medications: no Objective NMES: No Pt lethargic yet cooperative. Ok to complete VFSS to determine least restrictive diet. RN notified. Diet Trials: Level 0 Thin and Level 4 Pureed Outcome: s/s aspiration present coughing noted with trials of thin water per straw Plan Speech Therapy Care Plan Speech Therapy Care Plan (Active) Template: ST - Dysphagia Problem: Swallowing Dates: Start: 04/23/25 Disciplines: STAFFING ASSOCIATE Goal: LTG: Patient will maintain adequate nutrition/ hydration with optimum safety and efficiency of swallowing function of oral intake without overt signs/symptoms of aspiration for the highest appropriate diet level Dates: Start: 04/23/25 Expected End: 05/28/25 Disciplines: STAFFING ASSOCIATE Outcomes Date/Time User Outcome 04/24/25 0847 LAUREN Gaxiola Progressing 04/23/25 1115 LAUREN Gaxiola Progressing Goal: STG: Patient will tolerate therapeutic feeding trials of advanced textures with 90% accuracy with minimal cueing Dates: Start: 04/23/25 Expected End: 05/28/25 Disciplines: STAFFING ASSOCIATE Outcomes Date/Time User Outcome 04/24/25 08LAUREN Aden Progressing 04/23/25 1115 LAUREN Gaxiola Progressing Speech Therapy Care Plan (Resolved) There are no resolved problems. Principal Problem: Altered mental status * Plan of Care - Fe Marin RN - 04/23/2025 10:45 PM EDT Problem: Pain Goal: Patient goal is pain score less than 4, able to rest, and participant in treatment plan as appropriate Description: INTERVENTIONS: 1. Encourage patient or legal client relations representative to report early pain and ask for pain medicine when needed 2. Assess pain using appropriate pain scale and include the scale used when documenting 3. Administer analgesics based on type and severity of pain and evaluate response within appropriate time frame 4. Implement non-pharmacological measures as appropriate and evaluate response 5. Consider cultural and social influences on pain and pain management 6. Notify LIP if interventions ineffective or patient reports new pain 7. Monitor vital signs including pulse ox, end-tidal CO2 based on pain intervention 8. Reassess pain per policy 9. Teach patient or legal client relations representative interventions for comforting Outcome: Progressing Note: Evaluation of progress towards goal: Patient's pain assessed using numerical scale 0-10. Nonpharmacological and phamacological measures used to manage pain as ordered. Will continue to assess and monitor as necessary Problem: Safety Goal: Patient will be injury free during hospitalization Description: INTERVENTIONS: 1. Assess patient's risk for falls and implement fall prevention plan of care per policy 2. Provide and maintain a safe environment 3. Proper use of double Identifiers 4. Medication administration using the 5 rights 5. Hand hygiene 6. Specimens are labeled at the bedside 7. Instruct patient/ patient client relations representative about use of safety devices 8. Include patient/ patient client relations representative in decisions related to safety Outcome: Progressing Note: Evaluation of progress towards goal: No events reported during shift. Bed is locked and in lowest position with side rails up x2, call light and personal items are within reach, hourly roundingcompleted, non skid socks maintained. Problem: Infection Goal: Absence of infection during hospitalization Description: INTERVENTIONS 1. Assess and monitor for signs and symptoms of infection. 2. Monitor lab/diagnostic results. 3. Monitor all insertion sites i.e., indwelling lines, tubes and drains. 4. Monitor endotracheal (as able) and nasal secretions for changes in amount and color. 5. Administer medications as ordered. 6. Instruct and encourage patient and family to use good hand hygiene technique. 7. Identify and instruct patient/patient client relations representative in use of appropriate isolation precautionsfor identified infection/symptoms. 8. Provide and discuss with patient/patient client relations representative on educational MDRO sheet. 9. Encourage and monitor nutritional status daily and consult golf club head inspector and adjuster if indicated. 10. Implement neutropenic guidelines as needed. Outcome: Progressing Note: Evaluation of progress towards goal: Handwashing and standard precautions maintained, patientremains free of signs and symptoms of infection, patient is afebrile, IV insertion site monitored. Will continue to monitor for signs and symptoms of infection. Problem: Knowledge Deficit Goal: Patient/patient client relations representative demonstrates understanding of disease process, treatment plan,medications, and discharge instructions Description: INTERVENTIONS 1. Complete learning assessment and assess knowledge base 2. Provide teaching at level of understanding 3. Provide teaching via preferred learning method(s) Outcome: Progressing Note: Evaluation of progress towards goal: Patient states understanding of plan of care, medications, and discharge plans at this time. Will continue to monitor and educate as necessary * Discharge Planning Note - Ricky Mclaughlin RN - 04/23/2025 5:21 PM EDT Images from the original note were not included. Initial Assessment Lap Layer met with patient's spouse, Ellie, introduced self, and explained role. Patient's spouse educated on safe discharge plan. Pt admitted 04/22/2025 with Altered mental status [R41.82] per chart review. Consults: Neurology Discharge Barriers per Daily Transition Rounds and chart review: LTME day 1/5, IVF, PT/OT evaluation, Urinalysis, possible MRI spine, Swallow Evaluation. Past Medical History: Diagnosis Date Arthritis Coronary artery disease stent placed approx 1999 Hyperlipidemia Hypertension Neuropathy bilateral lower extremity due to back surgery Urine frequency Visual impairment Prior to admission patient was living with spouse/significant other and partial assistance. Medicalequipment patient used prior to admission includes: Raised/Elevated Toilet Seat, Walker - Rollator,Walker - Standard, and Motorized scooter, walk-in shower. Patient denies need for transportation/ food/ prescription medication assistance resources. PCP: DOROTHY HALL DO Pharmacy:[facility] in [place] and [facility] PCP and pharmacy confirmed with patient. CN offered to assist with follow up appointment arrangements; Spouse declines, stating an appointment is scheduled for next /Sun. DOROTHY E BALL, DO added to Follow Up Providers for Summary of Care communication. Per patient's spouse self-report: Drug use: denies Smoking: denies ETOH Use: denies Current discharge plan is: SNF vs Home w/[facility] Services Requested: Services Requested Patient expects to be discharged to:: SNF vs Home with [facility] Does the patient wish to have family/friend/caregiver involved in their discharge planning?: Yes Discharge Disposition: Home with home health services, SNF Facility/Service Name: [facility] SNF Name: [facility] SN[facility] Accepted?: Yes Does the patient need discharge transportation arranged?: No Goals: Goals <enter goal here> (pt-stated) Evaluation of progress towards goal: safe discharge pending clinical progress Patient is retired and lives with spouse who was able to provide care to patient with [facility] after patient was recently discharged from [facility] in [place]. Patient does not drived/t neuropathy, so spouse provides transportation. Patient has grandchildren available for some support but spouse states there is less help available during the day d/t family working. Tasked [facility] referrals to [facility] and return referral to [facility]. Both able to accept when patient medically ready. Will continue to follow as plan of care develops. CN discussed benefits and importance of medication compliance and follow ups. Please feel free to reach out for any discharge planning questions. - RICKY MCLAUGHLIN RN 04/23/25 5:21 PM Initial Assessment Flowsheet Row Most Recent Value Patient Information Initial Pre-Hospitalization Assessment Completed? Completed Primary Caregiver Spouse Support System Spouse/Significant Other, Family Members Discharge Planning Living Arrangements Spouse/significant other Assistance Needed ADL Type of Residence Private residence Private Residence 2 story Can patient reside on one level? Yes Residence Accessibility Steps into home Number of Steps 4 Home Care Services Yes Type of Home Care Services Home PT, Nurse visit Community Referrals / Resources Provided Denies needs Stressors Income Information Income Information Retired/Pension/Social Security IP Hunger/Food Insecurity Screening Within the past 12 months we worried whether our food would run out before we got money to buy more. Never True Within the past 12 months the food we bought just didn't last and we didn't have money to get more.Never True Hunger Screening Complete? Yes Pt. Eligible for Food / Voucher No Caregiver/Family Member Caregiver/Family Member Spouse Caregiver/Family Member Involved with Current Plan of Care Yes Caregiver/Family Member in Agreement with Current Plan of Care Yes Caregiver/Support System Limitations Caregiver/Support Systems Limitations (Check All That Apply) Caregiver Limitations Caregiver/Support System Limitations Physical Limitations [Spouse is able to assist patient with standing but with patient recent decline at home, she stated home care services were unable to get patient up- HHC called EMT] Patient/Caregiver Goals Patient/Caregiver Goals Home with Home Care, Assisted Care Skilled [facility] Skilled Care (Short Term) Community Provider Referral Services Requested Patient expects to be discharged to: SNF vs Home with HHC Does the patient wish to have family/friend/caregiver involved in their discharge planning? Yes Discharge Disposition Home with home health services, SNF Facility/Service Name [facility] SNF Name [facility] Accepted? Yes Does the patient need discharge transportation arranged? No * PT/OT/STAFFING ASSOCIATE - Verito Ordaz, PT - 04/23/2025 3:31 PM EDT Physical Therapy Evaluation Discharge Recommendations for Safe Patient Transition Discharge Recommendations: Post acute - moderate Post Acute Moderate Rehab Needs: Recommend moderate intensity rehab, Tolerate 1- 2 hrs of therapy 3-5 days/wk, Subacute or chronic functional impairment Current Impairments Informing Therapy Recommendation: Ambulation status/safety, Cognition, Fall risk, Endurance level Therapy Plan Need for skilled Physical Therapy to address deficits in functional mobility due to a status decline resulting from hospital admission 04/22/25 as transfer from [facility] with generalized weakness and hallucinations. Dx: Encephalopathy of unknown etiology EEG: generalized background slowing MRI L spine: no evidence of infection Starting seroquel Pt had L2-5 decompression with fusion and durotomy in February 2025 after which he developed metabolicencephalopathy and UTI and d/c to SNF for 6 weeks. Pt was home a few days prior to this admission DX: AMS Past Medical History: Diagnosis Date Arthritis Coronary artery disease stent placed approx 1999 Hyperlipidemia Hypertension Neuropathy bilateral lower extremity due to back surgery Urine frequency Visual impairment Past Surgical History: Procedure Laterality Date BACK SURGERY CARDIAC SURGERY stents CATARACT EXTRACTION HERNIA REPAIR REPLACEMENT TOTAL JOINT KNEE Right 02/14/2022 Performed by Perry Garay Jr., DO at [facility] 6 Clicks: Basic Mobility Turning from your back to your side while in a flat bed without using bed rails?: Total Moving from lying on your back to sitting on side of flat bed without using bed rails?: Total Moving to and from bed to a chair (including w/c)?: Total Standing up from a chair using your arms (e.g. w/c or bedside chair)?: Total To walk in hospital room?: Total Climbing 3-5 steps with a railing?: Total Scoring 6 Clicks: Basic Mobility Raw Score: 6 CMS G Code Modifier: CN PT Treatment/Interventions: Functional transfer training, LE strengthening/ROM, Endurance training,Patient/family training, Equipment eval/education, Balance, Gait training, Bed mobility, Functionalactivities PT Frequency: 4-5days/week PT Duration: LOS Assessment Patient Assessment Therapy Problem List: Decreased balance, Decreased endurance, Decreased mobility, Decreased safe judgement during ADL, Decreased LE strength Patient Response to Treatment: Tolerated evaluation without adverse reaction Mood/Affect: Anxious Rehab Prognosis: Good, With continued PT status post acute discharge Visit RN Communication: Yes Medical Record Reviewed: Yes PT Type of Visit: Evaluation Precautions Activity: early mobility: pass, ok consuelo Paige RN for PT eval Equipment: gait belt, nic stedy, maxi matt repositioning sling Telemetry/Patrol Police Lieutenant: Yes Oxygen Used: room air Other: (S) high fall risk, significant anxiety/panic attacks with mobility, 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, B AFOs Pain Assessment Pain Assessment: 0-10 Pain Score: (pt unable to provide # for pain rating due to AMS but c/o back pain with any movement) Pain Intervention(s): Repositioned, Environmental changes, Distraction, Emotional support, Therapeutic presence Response to Interventions: Quiet (sleeping and snoring upon completion of eval) Home Living Type of Home: House Home Layout: Two level, Bed/bath upstairs (full bath on main floor) Stairs to Enter: 4 Hand Rails: Bilateral Stairs in Home: FF Hand Rails in Home: Bilateral Bathroom Shower/Tub: Walk-in shower Bathroom Toilet: Standard Bathroom Equipment: Commode, Grab bars in shower, Shower chair (has BSC over standard toilet) Home Equipment: 4 Wheeled walker, Rolling walker, Electric scooter (B AFO) Other : Spouse provided home information due to pt's AMS. Prior Function Lives With: Spouse (spouse is able to offer limited physical assistance at baseline) Receives Help From: Family (local grandson with limited availability) Other: Per spouse, pt fell last Sunday upon return home from SNF, however, grandson was reportedly able to pick pt up from floor. Spouse reports that pt had been able to walk short distances in the home with 4WW but regularly used scooter for mobiltiy outside home at baseline. ADL / IADL Hand Dominance: Right Hearing / Speech / Vision Hearing: Within Functional Limits, No hearing aid Speech: Garbled, Delayed responses Current Vision: Wears glasses for distance only Cognition Arousal/Alertness: Delayed responses to stimuli (pt asleep upon therapist's entry to room and dozedoff immediately upon returning to bed at end of eval) Attention Span: Difficulty dividing attention, Difficulty attending to directions Memory: Decreased short term memory, Decreased recall of recent events, Decreased shelter memory,Decreased recall of precautions Orientation Level: Oriented to person, Disoriented to place, Disoriented to time, Disoriented to situation (oriented to year but stated that month is December and pt stated that he was in [place] today.) Following Commands: Follows one step commands with repetition, Follows one step commands with increased time Safety Judgment: Decreased awareness of need for assistance, Decreased awareness of need for safety Awareness of Errors: Assistance required to correct errors made, Assistance required to identify errors made, Decreased awareness of errors Insight of Deficits: Decreased awareness of deficits Problem Solving: Assistance required to identify errors made, Assistance required to generate solutions, Assistance required to implement solutions Interfering Components: Processing speed, Working memory, Attention to detail, Attention - sustained, Attention - selective, Other (comment) (significant anxiety and hyperventilating during mobility assessment) Other: Pt was intermittently garbled and slurred. Pt with considerable difficulty following cues attimes and attending to task at hand. When asked where pt is today, pt stated, Over there : and when question was repeated, pt stated, At your parents house Sensation Overall Sensation Status: Consistent with premorbid status (per spouse, chronic PN BLE and wears B AFOS at baseline) Bed Mobility Rolling: Mod assist, Right, Left, Visual cues, Verbal cues, Tactile cues Supine to Sit: Max assist (+2) Sit to Supine: Max assist (+2) Other: Pt required max verbal cues for all phases of bed mobility as well as assist at trunk and BLE to complete. Pt required frequent repetition of verbal commands due to dozing off readily when notcued. Once seated at EOB, pt immediatly closed his eyes and required verbal cues to keep eyes open Transfers Sit to Stand: Mod assist, Max assist (+2) Stand to Sit: Mod assist, Max assist (+2) Other: Pt completed ~ 6 sit<>stand transfers from elevated bed height with use of nic stedy due to intermittent lethargy and impulsivity. Pt require fluctuating levels of assist between mod-max A+2 depending on current level of anxiety. Pt initially stood upright in stedy and was able to support himself until paddles were lowered for pt to sit and pt promptly panicked and was unable to regain full standing posture for safe repositioning of paddles for pt to then sit down on bed. After max cueing and encouragement to stand upright and shift his weight, pt was finally able to clear stedypaddles to sit EOB. After lengthy seated rest break at EOB (10 minutes) pt was able to stand readily in nic stedy but panicked again when paddles were lowered for pt to sit on them. Max cues for pt to stand upright for removal of paddles in order for pt to sit down on EOB. Gait Other: unsafe to attempt Balance Sitting Balance: Static: Fair Sitting Balance: Dynamic: Fair ((-)) Standing Balance: Static: Poor Standing Balance: Dynamic: (EMANI) Other: (Pt able to sit EOB ~10 mintues with BUE support and close CGA and cues for pt to remain upright to prevent posterior LOB. Pt stood x6 trials in nic stedy for ~15 seconds at a time.) RUE Assessment: (see OT eval) LUE Assessment: (see OT eval) RLE Assessment: (pt unable to follow MMT cues and winced/moaned with any movement of LE.) LLE Assessment: (pt unable to follow MMT cues and winced/moaned with any movement of LE.) Activity Tolerance Endurance: Tolerates >30 minutes activity with rest breaks Other: RR up to 35 during STS d/t anxiety/hyperventilating, frequent cues needed for PLB/deescalation. SpO2 WNL Plan Physical Therapy Care Plan Physical Therapy Care Plan (Active) Template: PT - Physical Therapy Problem: Activity Tolerance Dates: Start: 04/23/25 Disciplines: PT Goal: Tolerate > 30 minutes of activity WITH rest breaks Dates: Start: 04/23/25 Expected End: 06/04/25 Description: To improve overall strength and endurance for functional mobility. Disciplines: PT Problem: Bed Mobility Dates: Start: 04/23/25 Disciplines: PT Goal: Patient will perform bed mobility with Moderate Assist Dates: Start: 04/23/25 Expected End: 06/04/25 Description: Goal Description: Disciplines: PT Problem: Gait Dates: Start: 04/23/25 Disciplines: PT Goal: Patient will perform gait with Minimum Assist Dates: Start: 04/23/25 Expected End: 06/04/25 Description: With__RW__,__20__feet Goal Description: Disciplines: PT Problem: Sitting Balance Dates: Start: 04/23/25 Disciplines: PT Goal: Improve balance to good Dates: Start: 04/23/25 Expected End: 06/04/25 Description: To reduce fall risk while sitting EOB Disciplines: PT Problem: Standing Balance Dates: Start: 04/23/25 Disciplines: PT Goal: Improve balance to fair Dates: Start: 04/23/25 Expected End: 06/04/25 Description: With use of AD to reduce fall risk during ambulation Disciplines: PT Problem: Strength Dates: Start: 04/23/25 Disciplines: PT Goal: Improve strength Dates: Start: 04/23/25 Expected End: 06/04/25 Description: Pt will complete 15 reps AROM BLE exercises to facilitate increased independence with transfers Disciplines: PT Problem: Transfers Dates: Start: 04/23/25 Disciplines: PT Goal: Patient will perform transfers with Minimum Assist Dates: Start: 04/23/25 Expected End: 06/04/25 Description: Goal Description: Disciplines: PT Physical Therapy Care Plan (Resolved) There are no resolved problems. Principal Problem: Altered mental status * PT/OT/STAFFING ASSOCIATE - Ramya Wilkinson OTR/L - 04/23/2025 3:20 PM EDT Occupational Therapy Evaluation Discharge Recommendations for Safe Patient Transition Discharge Recommendations: Post acute - moderate Post Acute Moderate Rehab Needs: Recommend moderate intensity rehab, Tolerate 1- 2 hrs of therapy 3-5 days/wk, Subacute or chronic functional impairment Current Impairments Informing Therapy Recommendation: Ambulation status/safety, Cognition, Fall risk, ADL status, Communication needs, Endurance level 6 Clicks: Daily Activity Putting on and taking off regular lower body clothing?: Total Bathing (including washing, rinsing, drying)?: A lot Toileting, which includes using toilet, bedpan or urinal?: Total Putting on and taking off regular upper body clothing?: A lot Taking care of personal grooming such as brushing teeth?: A lot Eating meals?: A lot Scoring Daily Activity Raw Score: 10 CMS G Code Modifier: CL Therapy Plan Need for skilled Occupational Therapy to address deficits in ADL independence and functional mobility due to a status decline resulting from hospitalization. Pt is 79 y/o male admitted 04/22 as transfer from [facility] with generalized weakness and hallucinations. Dx: Encephalopathy of unknown etiology EEG: generalized background slowing MRI L spine: no evidence of infection Starting seroquel Pt had L2-5 decompression with fusion and durotomy in February 2025 after which he developed metabolicencephalopathy and UTI and d/c to SNF for 6 weeks. Pt was home a few days prior to this admission Past Medical History: Diagnosis Date Arthritis Coronary artery disease stent placed approx 1999 Hyperlipidemia Hypertension Neuropathy bilateral lower extremity due to back surgery Urine frequency Visual impairment Past Surgical History: Procedure Laterality Date BACK SURGERY CARDIAC SURGERY stents CATARACT EXTRACTION HERNIA REPAIR REPLACEMENT TOTAL JOINT KNEE Right 02/14/2022 Performed by Perry Garay Jr. DO at [facility] OT Treatment/Interventions: Functional transfer training, ADL retraining, UE strengthening/ROM, Cognitive reorientation, Endurance training, Equipment eval/education, Patient/family training, Balance, Bed mobility, Gait training, Compensatory technique education, Functional activities OT Frequency: 4-5days/week OT Duration: LOS Assessment Patient Assessment Therapy Problem List: Decreased ADL status, Decreased balance, Decreased cognition, Decreased endurance, Decreased high-level ADLs, Decreased safe judgement during ADL, Decreased mobility, Decreased self-care trans, Decreased LE strength, Decreased UE strength, Decreased sensation Patient Response to Treatment: Tolerated evaluation without adverse reaction Mood/Affect: Anxious Rehab Prognosis: Good, With continued OT status post acute discharge Visit RN Communication: Yes Medical Record Reviewed: Yes OT Type of Visit: Evaluation Precautions Activity: early mobility-pass Equipment: gait belt, nic stedy, bed alarm, repositioning sling Telemetry/Patrol Police Lieutenant: Yes Oxygen Used: room air Other: high fall risk, anxiety/panic attack with STS training, h/o L2-5 fusion 02/2025, wears bilat AFOs 2/2 PN, AMS/hallucinating Pain Assessment Pain Assessment: 0-10 Pain Score: (unable to rate formallly d/t AMS but c/o back pain with most activity) Pain Intervention(s): Repositioned, Environmental changes, Distraction, Emotional support, Therapeutic presence Response to Interventions: Quiet (dozing off at exit) Home Living Type of Home: House Home Layout: Two level, Bed/bath upstairs (there is a full bath on the 1st floor if needed) Stairs to Enter: 4 Hand Rails: Bilateral Stairs in Home: FF Hand Rails in Home: Bilateral Bathroom Shower/Tub: Walk-in shower Bathroom Toilet: Standard Bathroom Equipment: Commode, Grab bars in shower, Shower chair (has BSC over standard toilet) Home Equipment: 4 Wheeled walker, Rolling walker, Electric scooter (sleeps in regular flat bed) Other : providing home info/PLOF as pt is altered. She reports pt was home from SNF for a few days before this readmission and had 1 fall when he got there requiring his grandson to come help him back up. Prior Function Lives With: Spouse ( is able to assist with IADL but cannot physically help pt with transfers.) Receives Help From: Family (reports several local grandsons she can call to come help if needed) Level of Mobility: Needs assistance with ADLs or functional transfers or gait Other: Since being home from SNF pt was MOD I with ADLs except LB dressing which was assistingwith d/t spinal precautions s/p back surgery in February. Reports he was amb with 4WW or RW in the home without assist. Reports using electric scooter outside. Homemaking Assistance: Needs assistance Other: Pt has not driven in 3 yrs d/t PN. Prior to February he was sharing IADLs with . Now total A IADL Vocational: Retired ADL / IADL Hand Dominance: Right Where Assessed: Supine, bed, Edge of bed Eating Assistance: Min assist Grooming Assistance: Mod assist Bathing/Showering Assistance: Max assist Toilet/Commode Assistance: Total assist UE Dressing Assistance: Mod assist LE Dressing Assistance: Total assist LE Dressing Deficit: Increased time to complete, Don/doff brief Footwear Assistance: Total assist Footwear Deficit: L sock, R sock, L shoe, R shoe, Orthotic/brace Other: Pt reported need to urinate once awakened. Pt assisted to sit EOB but could not successfullyuse urinal seated. Nic arreola attained to stand to urinate. Total A needed to don socks, shoes, andAFOs d/t back pain, weakness, and AMS. Upon standing pt became highly anxious about falling and asking to sit back on EOB. Difficulty removing stedy paddles to sit (see transfers). Pt reports no longer needing to urinate. Upon return to supine total A needed for donning brief ; pt rolled with mod Don assist. Hearing / Speech / Vision Hearing: Within Functional Limits, No hearing aid Speech: Garbled, Delayed responses Current Vision: Wears glasses for distance only Cognition Overall Cognitive Status: Exceptions to Within Functional Limits Arousal/Alertness: Delayed responses to stimuli (*asleep at entrance and abruptly falls asleep again once returned to supine') Attention Span: Difficulty dividing attention, Difficulty attending to directions Memory: Decreased short term memory, Decreased recall of recent events, Decreased shelter memory,Decreased recall of precautions Orientation Level: Oriented to person, Disoriented to place, Disoriented to time, Disoriented to situation (oriented to year, reports month is December. Reports he is at [place]) Following Commands: Follows one step commands with repetition, Follows one step commands with increased time Safety Judgment: Decreased awareness of need for assistance, Decreased awareness of need for safety Awareness of Errors: Assistance required to correct errors made, Assistance required to identify errors made, Decreased awareness of errors Insight of Deficits: Decreased awareness of deficits Problem Solving: Assistance required to identify errors made, Assistance required to generate solutions, Assistance required to implement solutions Interfering Components: Processing speed, Working memory, Attention to detail, Attention - sustained, Attention - selective, Other (comment) (significant anxiety) Other: Pt speech is garbled and at times irrelevant to question asked. When asked where pt is from,pt reports over there then later reports your parents house. Pt became extremely anxious and tachypneic with STS in nic stedy and stopped following commands. Pt leaning all his weight onto L stedy paddle and asking to sit back on the EOB because he will fall but was not standing to allow OT/PTto remove L paddle. Max use of deescalation needed to redirect pt and bring RR down. After a prolonged rest, pt desired to attempt a 2nd time, at which point the same sequence occurred in which pt became anxious and could not maintain full stand d/t panic. Sensation Overall Sensation Status: Consistent with premorbid status (PN severe from ankles down per . Wears AFOs BLE) Bed Mobility Rolling: Mod assist, Right, Left, Visual cues, Verbal cues, Tactile cues Supine to Sit: Max assist (x2) Sit to Supine: Max assist (x2) Other: Pt completed log roll to EOB with VVT cues/mod A d/t stiffness/pain/weakness. Max A x2 needed to elevate trunk and advance BLE over EOB. Pt denies dizziness. Max A x2 to return to supine end of session. Needs in reach at exit and bed alarm on Transfers Sit to Stand: Mod assist, Max assist (x2) Stand to Sit: Mod assist, Max assist (x2) Other: Pt completed approx 6 STS from elevated EOB to nic stedy d/t impulsivity and AMS. Pt required flucuating levels of assist between mod x2 and max x2 dependent on level of current anxiety. pt had initially stood upright well in stedy for paddle placement; upon placing paddles and cueing pt tosit pt became panicked and was certain he was falling, hyperventilating and not following cues. Significant difficulty removing L paddle from beneath buttock to allow pt to return to EOB as pt leaning heavily to L and not standing fully erect anymore. Pt c/o in pain and RR was 35. Eventually with deescalation pt was safely returned to EOB with max A x2. Inc time for transfer training d/t prolonged panic attack Gait Other: not appropriate Balance Balance Evaluation: Exceptions to Functional Limits Sitting Balance: Static: Fair Sitting Balance: Dynamic: Fair (-) Standing Balance: Static: Poor Other: EOB x >10 mins with BUE support and CGA/cues to correct posterior lean. Stood x6 trials for no > 15 sec at a time with min- max A to maintain dependent on level of anxiety and confusion at the time RUE Assessment: (generalized weakness) LUE Assessment: (generalized weakness) RLE Assessment: (see PT eval) LLE Assessment: (see PT eval) Activity Tolerance Endurance: Tolerates >30 minutes activity with rest breaks Other: RR up to 35 during STS d/t anxiety/hyperventilating, frequent cues needed for PLB/deescalation. SpO2 WNL Plan Occupational Therapy Care Plan Occupational Therapy Care Plan (Active) Template: OT - Occupational Therapy Problem: Activity Tolerance Dates: Start: 04/23/25 Disciplines: OT Goal: Tolerate > 30 minutes of activity WITH rest breaks Dates: Start: 04/23/25 Expected End: 05/22/25 Description: Goal Description: Disciplines: OT Problem: Bed Mobility Dates: Start: 04/23/25 Disciplines: OT Goal: Patient will perform bed mobility with Contact Guard Dates: Start: 04/23/25 Expected End: 05/22/25 Description: Goal Description: Disciplines: OT Problem: Cognition Dates: Start: 04/23/25 Disciplines: OT Goal: Improve cognition Dates: Start: 04/23/25 Expected End: 05/22/25 Description: Pt will demo improved safety awareness during tx sessions as evidenced by lack of needfor vc's for safety to increase independence in all functional activity. Disciplines: OT Problem: Functional Mobility Dates: Start: 04/23/25 Disciplines: OT Goal: Patient will perform functional mobility with Contact Guard Dates: Start: 04/23/25 Expected End: 05/22/25 Description: Goal Description: Disciplines: OT Problem: Other (Customize) Dates: Start: 04/23/25 Disciplines: OT Goal: Improve Dates: Start: 04/23/25 Expected End: 05/22/25 Description: Pt will demo setup level with all UB ADLs using AE prn to facilitate return to PLOF. Disciplines: OT Problem: Other (Customize) Dates: Start: 04/23/25 Disciplines: OT Goal: Improve Dates: Start: 04/23/25 Expected End: 05/22/25 Description: Pt will complete all LB ADLs with Min A level or better using AE prn to facilitate return to PLOF Disciplines: OT Problem: Sitting Balance Dates: Start: 04/23/25 Disciplines: OT Goal: Improve balance to good Dates: Start: 04/23/25 Expected End: 05/22/25 Description: Static Dynamic Disciplines: OT Problem: Standing Balance Dates: Start: 04/23/25 Disciplines: OT Goal: Improve balance to fair Dates: Start: 04/23/25 Expected End: 05/22/25 Description: Static Dynamic Disciplines: OT Problem: Strength Dates: Start: 04/23/25 Disciplines: OT Goal: Improve strength Dates: Start: 04/23/25 Expected End: 05/22/25 Description: Pt will demo good understanding of BUE strengthening HEP to increase endurance for functional transfers, mobility, and ADL with RW. Disciplines: OT Problem: Transfers Dates: Start: 04/23/25 Disciplines: OT Goal: Patient will perform transfers with Contact Guard Dates: Start: 04/23/25 Expected End: 05/22/25 Description: Goal Description: Disciplines: OT Occupational Therapy Care Plan (Resolved) There are no resolved problems. Principal Problem: Altered mental status * Discharge Planning Note - Jaylene Hatfield - 04/23/2025 1:34 PM EDT DISCHARGE PLANNING NOTE Referral sent to [facility] in [place], [place] (P# ;F# ) * PT/OT/STAFFING ASSOCIATE - Deidre Barraza [facility]-STAFFING ASSOCIATE - 04/23/2025 11:15 AM EDT Speech Therapy Dysphagia Treatment Note Assessment: Current Diet Tolerance: NPO Progress: improving Pain Assessment Pain Assessment: No/denies pain Recommendations Diet: Level 4 pureed diet, no liquids (until VFSS) Discharge: Continued ST Services Precautions Aspiration Plan: Plan of Care: continue with current plan of care Continue with Current Diet: yes Diet: Level 4 Pureed Liquids: No liquids Safety Strategies: medications in applesauce Subjective Setting: bedside Arrival Status: awake Mental Status: confused/disoriented Therapy Tolerance: fair Change in Medical Status: no Received Recent Medications: no Pt underwent VFSS this AM. Pt became confused and combative and had difficulty participating in evaluation. It was recommended pt remain NPO d/t lack of participation. RN contacted ST to determine ifpt was able to have oral medications. Family present. Provided pt with trials of thin liquids and puree. Until VFSS is able to be complete, ok for level 4 pureed diet with no liquids and medications in puree or with small sips of water. RN notified. Objective NMES: No Diet Trials: Level 0 Thin and Level 4 Pureed Outcome: tolerated without s/s aspiration Plan Speech Therapy Care Plan Speech Therapy Care Plan (Active) Template: - Dysphagia Problem: Swallowing Dates: Start: 04/23/25 Disciplines: STAFFING ASSOCIATE Goal: LTG: Patient will maintain adequate nutrition/ hydration with optimum safety and efficiency of swallowing function of oral intake without overt signs/symptoms of aspiration for the highest appropriate diet level Dates: Start: 04/23/25 Expected End: 05/28/25 Disciplines: STAFFING ASSOCIATE Outcomes Date/Time User Outcome 04/23/25 1115 Deidre Barraza CCC-STAFFING ASSOCIATE Progressing Goal: STG: Patient will tolerate therapeutic feeding trials of advanced textures with 90% accuracy with minimal cueing Dates: Start: 04/23/25 Expected End: 05/28/25 Disciplines: STAFFING ASSOCIATE Outcomes Date/Time User Outcome 04/23/25 1115 LAUREN Gaxiola Progressing Speech Therapy Care Plan (Resolved) There are no resolved problems. Principal Problem: Altered mental status * Discharge Planning Note - Krissy Mancia - 04/23/2025 10:58 AM EDT DISCHARGE PLANNING NOTE Referral to [facility] [place] (P# ; F# ) * Plan of Care - Mikie Mcleod MD - 04/23/2025 10:23 AM EDT Patient seen and examined. Admitted earlier today due to confusion. Patient is status post L2-L5 decompression with fusion durotomy on 02/24/2025. He subsequently developed a UTI on 03/06/2025. He was [place] [facility] before being discharged home. Reportedly at 1st upon returning home his mental status was at baseline and he was lucid. He developed confusion starting last Sunday. He was subsequently admitted to an outside hospital. Workup there was reportedly relatively unremarkable with MR brain in MR lumbar spine showing no acute abnormalities. He was not found to have any infection or other significant metabolic findings that would explain his confusion. After discussion with Neurology he was transferred to [facility]. Records are being obtained from [facility]. EEG per Neurology. Case was discussed with Neurology. Please see H and P from earlier today for full note. * PT/OT/STAFFING ASSOCIATE - Emma Perkins CCC-STAFFING ASSOCIATE - 04/23/2025 8:50 AM EDT Speech Therapy Videofluoroscopic Swallow Study Evaluation and Treatment Note Discharge Recommendations for Safe Patient Transition STAFFING ASSOCIATE Post Discharge Therapy Recommendations: Continue ST services Current Impairments Informing Therapy Recommendation: Swallowing NPO for now. Pt very confused, combative and would not participate in exam despite multiple attempts. Spit out barium. Will reevaluate at bedside when more appropriate to ensure pt will participate. Recommendations Diet Level: NPO Liquid Level: No liquids Alternate Means Of:: Nutrition, Hydration Referrals: VFSS (when able to participate) Impressions Oral Phase: Severe Pharyngeal Phase: (unable to assess) Functional Oral Intake Scale: No PO intake Pt educated on purpose of exam, contrast administration, and procedural techniques prior to initiation of exam. Pt educated on results of exam, NPO status, and plan of care following exam. Plan Frequency: 3-4days/week Duration: until discharge Treatments/Modalities: Thermal/tactile/gustatory Stimulation Need for skilled Speech Language Pathology Services to address deficits in feeding/swallowing due to a status decline resulting from AMS. 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 CT negative. MR negative. Neuro recommended EEG so pt was transferred to [facility]. Speech consulted to assess swallow function in the setting of AMS. Prognosis Services: Skilled STAFFING ASSOCIATE services to address above deficits Prognosis/Potential: Fair Considerations: Age, Previous level of function, Participation level Assessment Baseline Assessment Prior BSSE/VFSS: na Additional Testing Results: Magnetic resonance imaging Setting Prior to Admission: Home Associated Problems: Mental status changes Respiratory Status: Room Air History of Intubation: No Behavior/Cognition: Alert, Agitated, Confused, Uncooperative Patient Positioning: Upright in bed Baseline Vocal Quality: Weak, Wet/gurgly Ability to Control Secretions: Yes Allergies Marked As Reviewed: Complete Consistencies Tested Views: Lateral position Level 0 Thin: Spoon, Cup Modified Barium Swallow Impairment Profile (MBSImP) Oral Impairment: Yes Component 1: Lip Closure: escape beyond mid-chin Component 2: Tongue Control During Bolus Hold: escape to lateral buccal cavity/floor of mouth Component 3: Bolus Preparation/Mastication: logistical reasons Component 4: Bolus Transport/Lingual Motion: could not be determined due to logistical reasons not related to physiologic impairment Component 5: Oral Residue: could not be determined due to logistical reasons not related to physiologic impairment Component 6: Initiation of Pharyngeal Swallow: could not be determined due to logistical reasons not related to physiologic impairment Pharyngeal Impairment: (unable to evaluate pharyngeal physiology d/t lack of pharyngeal swallow) MBSImP Overall Impression Scores Oral Impairment Total: 5 Penetration/Aspiration Scale Penetration/Aspiration Scale Performed: (unable to assess, no pharyngeal swallow) FLACC (Face, Legs, Activity, Crying, Consolability) Pain Rating: FLACC (Rest) - Face: Occasional grimace or frown, withdrawn, disinterested Pain Rating: FLACC (Rest) - Legs: Uneasy, restless, tense Pain Rating: FLACC (Rest) - Activity: Squirming, shifting back and forth, tense Pain Rating: FLACC (Rest) - Cry: Moans or whimpers, occasional complaint Pain Rating: FLACC (Rest) - Consolability: Difficult to console or comfort Score: FLACC (Rest): 6 Plan Diagnosis Code Swallowing: R13.12 Dysphagia, oropharyngeal phase Speech Therapy Care Plan Speech Therapy Care Plan (Active) Template: ST - Dysphagia Problem: Swallowing Dates: Start: 04/23/25 Disciplines: STAFFING ASSOCIATE Goal: LTG: Patient will maintain adequate nutrition/ hydration with optimum safety and efficiency of swallowing function of oral intake without overt signs/symptoms of aspiration for the highest appropriate diet level Dates: Start: 04/23/25 Expected End: 05/28/25 Disciplines: STAFFING ASSOCIATE Goal: STG: Patient will tolerate therapeutic feeding trials of advanced textures with 90% accuracy with minimal cueing Dates: Start: 04/23/25 Expected End: 05/28/25 Disciplines: STAFFING ASSOCIATE Speech Therapy Care Plan (Resolved) There are no resolved problems. Principal Problem: Altered mental status * Plan of Care - Fe Marin RN - 04/22/2025 11:55 PM EDT Problem: Pain Goal: Patient goal is pain score less than 4, able to rest, and participant in treatment plan as appropriate Description: INTERVENTIONS: 1. Encourage patient or legal client relations representative to report early pain and ask for pain medicine when needed 2. Assess pain using appropriate pain scale and include the scale used when documenting 3. Administer analgesics based on type and severity of pain and evaluate response within appropriate time frame 4. Implement non-pharmacological measures as appropriate and evaluate response 5. Consider cultural and social influences on pain and pain management 6. Notify LIP if interventions ineffective or patient reports new pain 7. Monitor vital signs including pulse ox, end-tidal CO2 based on pain intervention 8. Reassess pain per policy 9. Teach patient or legal client relations representative interventions for comforting Outcome: Progressing Note: Evaluation of progress towards goal: Patient's pain assessed using numerical scale 0-10. Nonpharmacological and phamacological measures used to manage pain as ordered. Will continue to assess and monitor as necessary Problem: Safety Goal: Patient will be injury free during hospitalization Description: INTERVENTIONS: 1. Assess patient's risk for falls and implement fall prevention plan of care per policy 2. Provide and maintain a safe environment 3. Proper use of double Identifiers 4. Medication administration using the 5 rights 5. Hand hygiene 6. Specimens are labeled at the bedside 7. Instruct patient/ patient client relations representative about use of safety devices 8. Include patient/ patient client relations representative in decisions related to safety Outcome: Progressing Note: Evaluation of progress towards goal: No events reported during shift. Bed is locked and in lowest position with side rails up x2, call light and personal items are within reach, hourly roundingcompleted, non skid socks maintained. Problem: Infection Goal: Absence of infection during hospitalization Description: INTERVENTIONS 1. Assess and monitor for signs and symptoms of infection. 2. Monitor lab/diagnostic results. 3. Monitor all insertion sites i.e., indwelling lines, tubes and drains. 4. Monitor endotracheal (as able) and nasal secretions for changes in amount and color. 5. Administer medications as ordered. 6. Instruct and encourage patient and family to use good hand hygiene technique. 7. Identify and instruct patient/patient client relations representative in use of appropriate isolation precautionsfor identified infection/symptoms. 8. Provide and discuss with patient/patient client relations representative on educational MDRO sheet. 9. Encourage and monitor nutritional status daily and consult golf club head inspector and adjuster if indicated. 10. Implement neutropenic guidelines as needed. Outcome: Progressing Note: Evaluation of progress towards goal: Handwashing and standard precautions maintained, patientremains free of signs and symptoms of infection, patient is afebrile, IV insertion site monitored. Will continue to monitor for signs and symptoms of infection. Problem: Knowledge Deficit Goal: Patient/patient client relations representative demonstrates understanding of disease process, treatment plan,medications, and discharge instructions Description: INTERVENTIONS 1. Complete learning assessment and assess knowledge base 2. Provide teaching at level of understanding 3. Provide teaching via preferred learning method(s) Outcome: Progressing Note: Evaluation of progress towards goal: Patient states understanding of plan of care, medications, and discharge plans at this time. Will continue to monitor and educate as necessary Problem: Potential for Compromised Skin Integrity Goal: Skin integrity is maintained or improved Description: Patient's goal is: INTERVENTIONS 1. Perform initial skin assessment on admission and as needed 2. Turn patient every 2 hours and PRN 3. Relieve pressure to bony prominences 4. Avoid shearing 5. Keep skin clean and dry 6. Alternate a full bath with partial baths for elderly 7. Apply lotion/moisturizer on skin 8. Monitor patient's hygiene practices 9. Float heels 10. Collaborate with interdisciplinary team and initiate plans and interventions as needed Outcome: Progressing Note: Evaluation of progress towards goal: Collaborate with interdisciplinary team and initiate plan and interventions as ordered al: Problem: Urinary Incontinence Goal: Perineal skin integrity is maintained or improved Description: INTERVENTIONS 1. Assess genitourinary system, perineal skin, labs (urinalysis), and history of incontinence to include past management, aggravating, and alleviating factors 2. Keep skin clean and dry 3. Apply skin protectant 4. Develop skin care regimen 5. Provide privacy when changing patients incontinence device to maintain their dignity 6. Consider placing an indwelling catheter 7. Collaborate with interdisciplinary team and initiate plans and interventions as needed Outcome: Progressing Note: Evaluation of progress towards goal: Keep skin clean and dry documented in this encounterOhio[facility] Plan of care note * Plan of Care - Uri Valenzuela RN - 04/28/2025 7:49 PM EDT Problem: Pain Goal: Patient goal is pain score less than 4, able to rest, and participant in treatment plan as appropriate Description: INTERVENTIONS: 1. Encourage patient or legal client relations representative to report early pain and ask for pain medicine when needed 2. Assess pain using appropriate pain scale and include the scale used when documenting 3. Administer analgesics based on type and severity of pain and evaluate response within appropriate time frame 4. Implement non-pharmacological measures as appropriate and evaluate response 5. Consider cultural and social influences on pain and pain management 6. Notify LIP if interventions ineffective or patient reports new pain 7. Monitor vital signs including pulse ox, end-tidal CO2 based on pain intervention 8. Reassess pain per policy 9. Teach patient or legal client relations representative interventions for comforting Outcome: Progressing Note: Evaluation of progress towards goal: Lap Layer assessed that patient has had pain reassessed perpolicy. Implement no-pharmacological measures as appropriate and evaluate response with appropriatetime frame. Monitor vital signs including pulse ox, end-tidal c02 based on paint intervention. Problem: Safety Goal: Patient will be injury free during hospitalization Description: INTERVENTIONS: 1. Assess patient's risk for falls and implement fall prevention plan of care per policy 2. Provide and maintain a safe environment 3. Proper use of double Identifiers 4. Medication administration using the 5 rights 5. Hand hygiene 6. Specimens are labeled at the bedside 7. Instruct patient/ patient client relations representative about use of safety devices 8. Include patient/ patient client relations representative in decisions related to safety Outcome: Progressing Note: Evaluation of progress towards goal: Lap Layer assessed that patient has been provided and maintained a safe environment. Medication administration using the 5 rights. Proper use of double identifiers. Problem: Infection Goal: Absence of infection during hospitalization Description: INTERVENTIONS 1. Assess and monitor for signs and symptoms of infection. 2. Monitor lab/diagnostic results. 3. Monitor all insertion sites i.e., indwelling lines, tubes and drains. 4. Monitor endotracheal (as able) and nasal secretions for changes in amount and color. 5. Administer medications as ordered. 6. Instruct and encourage patient and family to use good hand hygiene technique. 7. Identify and instruct patient/patient client relations representative in use of appropriate isolation precautionsfor identified infection/symptoms. 8. Provide and discuss with patient/patient client relations representative on educational MDRO sheet. 9. Encourage and monitor nutritional status daily and consult golf club head inspector and adjuster if indicated. 10. Implement neutropenic guidelines as needed. Outcome: Progressing Note: Evaluation of progress towards goal: Lap Layer has been assessed and monitored for signs and symptoms of infection. Administered medications as ordered. Monitored all insertion sites. Problem: Knowledge Deficit Goal: Patient/patient client relations representative demonstrates understanding of disease process, treatment plan,medications, and discharge instructions Description: INTERVENTIONS 1. Complete learning assessment and assess knowledge base 2. Provide teaching at level of understanding 3. Provide teaching via preferred learning method(s) Outcome: Progressing Note: Evaluation of progress towards goal: Lap Layer has assessed that patient has been provided teaching at level of understanding. Provided teaching via preferred learning methods. Completed learning assessment and assessed knowledge base. Problem: Discharge Planning Goal: Discharge to post-acute care, other facility, or home with appropriate resources Description: Patient's goal is: INTERVENTIONS 1. Conduct assessment to determine patient/family and health care team treatment goals, and need for post-acute services based on payer coverage, community resources, and patient preferences, and barriers to discharge 2. Coordinate with Social work, Care Navigation, and Utilization Review to arrange appropriate level of services according to patient's needs based on patient preference and payer coverage in collaboration with the physician and health care team 3. Address psychosocial, clinical, and financial barriers to discharge as identified in assessment in conjunction with the patient/family and health care team 4. Consult appropriate ancillary services (i.e.. PT/OT/ST, etc) as needed 5. Communicate with and update the patient/family, physician, and health care team regarding progress on the discharge plan 6. Identify discharge learning needs (meds, wound care, etc). 7. Arrange for needed discharge transportation as appropriate Outcome: Progressing Note: Evaluation of progress towards goal: Lap Layer assessed the patient for the following. Identify discharge learning needs. Arrange for needed discharge transportation as appropriate. Coordinate with social work and care navigation to arrange appropriate level of services according to patient's needs based on patient preference. Problem: Potential for Compromised Skin Integrity Goal: Skin integrity is maintained or improved Description: Patient's goal is: INTERVENTIONS 1. Perform initial skin assessment on admission and as needed 2. Turn patient every 2 hours and PRN 3. Relieve pressure to bony prominences 4. Avoid shearing 5. Keep skin clean and dry 6. Alternate a full bath with partial baths for elderly 7. Apply lotion/moisturizer on skin 8. Monitor patient's hygiene practices 9. Float heels 10. Collaborate with interdisciplinary team and initiate plans and interventions as needed Outcome: Progressing Note: Evaluation of progress towards goal: Lap Layer assessed that patient is being repositioned Q2. Keeping skin clean and dry. Relieving pressure to bony prominences. Goal: Patient's nutritional intake is adequate Description: Patient's goal is: INTERVENTIONS 1. Assess and monitor food intake and supplements, patient food preferences, nausea, vomiting, labs, oral cavity (gums, teeth, tongue, mucosa), proper denture fit, and cultural beliefs 2. Monitor for signs of hypoglycemia and hyperglycemia 3. Collaborate with interdisciplinary team and initiate plan and interventions as ordered 4. Monitor patient's weight 5. Assist patient with meals/food selection 6. Assist patient with eating 7. Allow adequate time for meals 8. Provide pleasant environment during mealtime 9. Increase social contact during mealtimes 10. Plan activities to conserve energy 11. Encourage/perform oral hygiene as appropriate 12. Encourage patient to take dietary supplement as ordered 13. Collaborate with clinical golf club head inspector and adjuster 14. Include patient/ patient's client relations representative in decisions related to nutrition Outcome: Progressing Note: Evaluation of progress towards goal: Lap Layer assessed that patient is allowed adequate time for meals. Provided pleasant environment during mealtime. Encouraged/perform oral hygiene as appropriate. Problem: Urinary Incontinence Goal: Perineal skin integrity is maintained or improved Description: INTERVENTIONS 1. Assess genitourinary system, perineal skin, labs (urinalysis), and history of incontinence to include past management, aggravating, and alleviating factors 2. Keep skin clean and dry 3. Apply skin protectant 4. Develop skin care regimen 5. Provide privacy when changing patients incontinence device to maintain their dignity 6. Consider placing an indwelling catheter 7. Collaborate with interdisciplinary team and initiate plans and interventions as needed Outcome: Progressing Note: Evaluation of progress towards goal: Lap Layer assessed the patient for the following. Keep skinclean and dry. Assess perineal skin. Maintain external catheter. Problem: Moderate - High Risk Fall Score Description: Disla Fall Score of =/> 25 or indicated by [facility] Assessment Goal: Patient should be free from fall Description: Interventions: 1. [place] to environment 2. Hourly rounds addressing the 4 P's (Pain, Positioning, Possessions, Potty) 3. Clear area of hazards (spills, clutter, electrical cords, unnecessary equipment) 4. Place equipment (bed & TV controls, call light, phone, urinal) within reach 5. Encourage patient to wear glasses and hearing aides as appropriate 6. Maintain bed in lowest position 7. Lock wheels on bed/wheelchair 8. Provide adequate lighting, including night light 9. Assess need for additional bedding, food/fluids, pain med's prior to sleep/routinely 10. Provide gripper slippers or personal non-skid footwear 11. Teach patient and patient client relations representative to maintain environment for safety and engage in all aspects of fall prevention program 12. Remind patient to call for help before getting out of bed 13. Initiate bed/chair/exit alarms supportive devices as appropriate, (chair wedge, no-skid floor mat, raised edge mattress, hip protectors) 14. Locate patient bed assignment for optimal visualization 15. Evaluate and identify Safe Patient Handling Equipment needs 16. Provide supervision when out of bed or chair 17. Utilize gait belt as needed to assist with ambulation 18. Place adaptive equipment (cane, walker) within reach 19. Request patient client relations representative bring adaptive equipment/mobility aids from home or obtain and provide as needed 20. Consult pharmacy regarding effects of med's affecting mobility, cognition, and alternatives 21. Obtain physician order for PT if risk factors associated with mobility are present 22. Obtain physician order for OT as appropriate 23. Utilize diversional activities 24. Educate patient and patient client relations representative how to maintain a safe environment during visitationtimes (notify nurse prior to leaving bedside) 25. Consider appropriateness of medical or non-medical lab director 26. Set up voiding schedule as appropriate (every 2 hours) Outcome: Progressing Note: Evaluation of progress towards goal: Lap Layer has been assessed in the following. [place] to environment, hourly rounds addressing the 4 P's (Pain, Positioning, Possessions, Potty). Maintain bed in lowest position. Remind patient to call for help before getting out of bed. [facility] Progress note* Discharge Planning Note - Mary Bacon - 04/28/2025 2:59 PM EDT DISCHARGE PLANNING NOTE Prior Auth approved for admission to : [facility] [place] (P# ; F# ) Approval # [id number] Valid for Dates: 04/28/2025-05/04/2025 [facility] Hospital course Narrative* Alonso Patricia MD - 04/28/2025 2:36 PM EDT Images from the original note were not included. [facility]- Hospital Medicine Discharge Summary Patient's Name: Edvin Roland Date of : 1945 Age: 79 yrs Gender: male PCP: Patient Care Team: Dorothy Hall DO as PCP - General (Internal Medicine) DATE OF ADMISSION: 04/22/2025 DATE OF DISCHARGE: 04/28/2025 DISCHARGE DIAGNOSES: Active Hospital Problems No active problems to display. Resolved Problems Diagnosis Date Noted Date Resolved Altered mental status 04/23/2025 04/28/2025 CONSULTANTS: Consulting Providers Provider Service Specialty Neuro-Consulting ([facility] Only) -- Neurology PROCEDURES: No admission procedures for hospital encounter. Hospital Course Edvin Rolandis a 79 y.o.male from home with past medical history significant for CAD, primary hypertension, hyperlipidemia, lumbar stenosis s/p L2-5 decompression with fusion and durotomy 02/2025.He also has past medical history of gout and bilateral foot drop wearing braces. The patient presented to outside ER with visual hallucinations and intermittent confusion ever since his surgery. He also had generalized weakness and increased dependency with reported falls at home. Workup did not show an infectious or metabolic etiology. He was transferred to [facility] for neurology consultation. EEG was negative for seizure activity. He had negative MRI brain and lumbar spine at outside hospital. Neurology recommended melatonin q.h.s. in addition to Seroquel q.h.s. p.r.n. for sundowning. Upon my evaluation today the patient is alert and oriented x4 and denies any symptoms other than generalized weakness. He will be discharged to SNF in a stable condition. Discharge Medications: Medication List START taking these medications Instructions Last Dose Given Next Dose Due melatonin 5 mg tablet Commonly known as: CIRCADIN Take 1 tablet (5 mg total) by mouth nightly. QUEtiapine 25 mg tablet Commonly known as: SEROquel Take 1 tablet (25 mg total) by mouth nightly as needed (owning). CHANGE how you take these medications Instructions Last Dose Given Next Dose Due aspirin 81 mg What changed: when to take this Another medication with the same name was removed. Continue taking this medication, and follow the directions you see here. Take 1 tablet (81 mg total) by mouth in the morning. CONTINUE taking these medications Instructions Last Dose Given Next Dose Due allopurinoL 300 mg tablet Commonly known as: ZYLOPRIM Take 1 tablet (300 mg total) by mouth in the morning. amLODIPine 2.5 mg tablet Commonly known as: NORVASC Take 2 tablets (5 mg total) by mouth in the morning. ascorbic acid (vitamin C) 1000 mg tablet Commonly known as: VITAMIN C Take 1 tablet (1,000 mg total) by mouth in the morning. atorvastatin 40 mg tablet Commonly known as: LIPITOR Take 1 tablet (40 mg total) by mouth in the morning. CALCIUM 500 + D 500 mg (1,250 mg) - 200 units per tablet Generic drug: calcium carbonate-vitamin D3 Take 1 tablet by mouth in the morning and 1 tablet in the evening. Take with meals. hydroCHLOROthiazide 25 mg tablet Commonly known as: HYDRODIURIL Take 1 tablet (25 mg total) by mouth daily. LUTEIN-ZEAXANTHIN ORAL Take by mouth. MYRBETRIQ ORAL Take by mouth. potassium chloride 20 MEQ CR tablet Commonly known as: KLOR-CON M 20 Take 1 tablet (20 mEq total) by mouth in the morning and 1 tablet (20 mEq total) before bedtime. vitamin B-12 1000 MCG tablet Generic drug: cyanocobalamin Take 1 tablet (1,000 mcg total) by mouth in the morning. Where to Get Your Medications You can get these medications from any pharmacy Bring a paper prescription for each of these medications aspirin 81 mg Information about where to get these medications is not yet available Ask your nurse or doctor about these medications melatonin 5 mg tablet QUEtiapine 25 mg tablet For most accurate medication list, please review the discharge medication summary. DISCHARGE EXAM: Vitals: 04/28/25 1438 BP: 123/71 Pulse: 72 Resp: 16 Temp: 36.6 C (97.9 F) SpO2: 96% General appearance: alert, in no acute distress Skin: No rash, no erythema Lungs: Nonlabored respiration, no wheezing Heart: RRR, No ectopy Abdomen: Abdomen soft, non-tender. Extremities: No edema, no swelling or erythema. Neuro: AAOx3, non-focal Labs: Recent Results (from the past 48 hours) Extra Tubes Collection Time: 04/27/25 5:37 AM Narrative The following orders were created for panel order Extra Tubes. Procedure Abnormality Status --------- ------ [facility] TOP[[id number]] Final result Please view results for these tests on the individual orders. PST TOP Collection Time: 04/27/25 5:37 AM Result Value Ref Range Extra Tube Auto Resulted Magnesium Collection Time: 04/27/25 5:37 AM Result Value Ref Range MAGNESIUM 2.0 1.8 - 2.6 mg/dL Basic Metabolic Panel Collection Time: 04/27/25 5:37 AM Result Value Ref Range SODIUM 140 134 - 146 mmol/L POTASSIUM 3.1 (L) 3.5 - 5.0 mmol/L CHLORIDE 103 98 - 109 mmol/L CARBON DIOXIDE 29 22 - 32 mmol/L ANION GAP 8 5 - 15 mmol/L BLOOD UREA NITROGEN 21 5 - 27 mg/dL CREATININE 0.71 0.60 - 1.30 mg/dL GLUCOSE 101 (H) 65 - 99 mg/dL CALCIUM 9.2 8.5 - 10.5 mg/dL EGFR Non-Race Dependent >90 >=60 ml/min/1.73sq.m CBC auto differential Collection Time: 04/27/25 5:38 AM Result Value Ref Range WBC 7.1 4 - 11 x10E9/L RBC Count 4.30 4.1 - 5.7 X10E12/L Hemoglobin 12.6 (L) 13 - 17 g/dL Hematocrit 37.5 (L) 39 - 50 % MCV 87 80 - 100 fL MCH 29.4 27 - 34 pg MCHC 33.7 32 - 36 g/dL RDW 14.5 11.5 - 15 % Platelet Count 215 150 - 450 X10E9/L MPV 9.4 7 - 12 fL Neutrophils % 70.7 % Lymphocytes % 15.8 % Monocytes % 11.8 % Eosinophils % 1.0 % Basophils % 0.7 % Neutrophils Absolute (A) 5.0 1.5 - 6.6 10*3/uL Lymphocytes Absolute 1.1 1.0 - 3.5 10*3/uL Monocytes Absolute 0.8 0.0 - 0.9 10*3/uL Eosinophils Absolute 0.1 0.0 - 0.4 10*3/uL Basophils Absolute 0.0 0.0 - 0.2 10*3/uL Differential Type AUTOMATED DIFFERENTIAL Potassium Collection Time: 04/27/25 6:42 PM Result Value Ref Range POTASSIUM 3.4 (L) 3.5 - 5.0 mmol/L CBC auto differential Collection Time: 04/28/25 5:24 AM Result Value Ref Range WBC 8.9 4 - 11 x10E9/L RBC Count 4.66 4.1 - 5.7 X10E12/L Hemoglobin 13.7 13 - 17 g/dL Hematocrit 41.6 39 - 50 % MCV 89 80 - 100 fL MCH 29.5 27 - 34 pg MCHC 33.1 32 - 36 g/dL RDW 14.5 11.5 - 15 % Platelet Count 209 150 - 450 X10E9/L MPV 9.4 7 - 12 fL Neutrophils % 61.0 % Lymphocytes % 20.8 % Monocytes % 12.9 % Eosinophils % 1.9 % Basophils % 3.4 % Neutrophils Absolute (A) 5.4 1.5 - 6.6 10*3/uL Lymphocytes Absolute 1.8 1.0 - 3.5 10*3/uL Monocytes Absolute 1.2 (H) 0.0 - 0.9 10*3/uL Eosinophils Absolute 0.2 0.0 - 0.4 10*3/uL Basophils Absolute 0.3 (H) 0.0 - 0.2 10*3/uL RBC Fragments 1+ Dacryocytes 1+ Elliptocytes 1+ Differential Type AUTOMATED DIFFERENTIAL Basic Metabolic Panel Collection Time: 04/28/25 5:24 AM Result Value Ref Range SODIUM 138 134 - 146 mmol/L POTASSIUM 3.7 3.5 - 5.0 mmol/L CHLORIDE 105 98 - 109 mmol/L CARBON DIOXIDE 23 22 - 32 mmol/L ANION GAP 10 5 - 15 mmol/L BLOOD UREA NITROGEN 21 5 - 27 mg/dL CREATININE 0.55 (L) 0.60 - 1.30 mg/dL GLUCOSE 97 65 - 99 mg/dL CALCIUM 9.2 8.5 - 10.5 mg/dL EGFR Non-Race Dependent >90 >=60 ml/min/1.73sq.m Radiology: No results found. Discharge Instructions Disposition: Discharge to ECF Condition: Good Activity: activity as tolerated Diet: Adult diet Regular Texture; No straws Adult diet Dorothy Hall DO [facility] [phone] Schedule an appointment as soon as possible for a visit in 1 week(s) Information Provided to the Patient: Patient given copy of Discharge Instructions, patient hospital stay was discussed. No special instructions. I have spent 35 minutes coordinating and preparing this discharge. I have discussed the patient's hospitalization course, treatment plan and follow up instructions with the patient. I have answered all the patient's questions. Electronically signed by: ALONSO PATRICIA MD [facility] Hospital[facility], Department of Internal Medicine 04/28/25 3:22 PM documented in this encounterOhioHealth [facility]06-[facility] Progress note* Discharge Planning Note - Carri Jimenez - 04/28/2025 1:55 PM EDT DISCHARGE PLANNING NOTE BLS transport via PTN confirmed in [facility] to [facility] 04.28. at 7:00pm [facility]-24-[facility] Progress note* PT/OT/STAFFING ASSOCIATE - MELISSA Friedman/John - 04/28/2025 9:58 AM EDT Occupational Therapy Treatment Discharge Recommendations for Safe Patient Transition Discharge Recommendations: Post acute - moderate Post Acute Moderate Rehab Needs: Recommend moderate intensity rehab, Tolerate 1- 2 hrs of therapy 3-5 days/wk, Subacute or chronic functional impairment Current Impairments Informing Therapy Recommendation: ADL status, Ambulation status/safety, Fall risk, Cognition, Endurance level Therapy Plan 6 Clicks: Daily Activity Putting on and taking off regular lower body clothing?: Total Bathing (including washing, rinsing, drying)?: A lot Toileting, which includes using toilet, bedpan or urinal?: Total Putting on and taking off regular upper body clothing?: A lot Taking care of personal grooming such as brushing teeth?: A lot Eating meals?: A lot Scoring Daily Activity Raw Score: 10 CMS G Code Modifier: CL OT Treatment/Interventions: Functional transfer training, ADL retraining, UE strengthening/ROM, Cognitive reorientation, Endurance training, Equipment eval/education, Patient/family training, Balance, Bed mobility, Gait training, Compensatory technique education, Functional activities OT Frequency: 4-5days/week Assessment Patient Assessment Therapy Problem List: Decreased balance, Decreased endurance, Decreased mobility, Decreased safe judgement during ADL, Decreased LE strength Patient Response to Treatment: Slow progress, decreased activity tolerance Mood/Affect: Anxious Visit RN Communication: Yes Medical Record Reviewed: Yes OT Type of Visit: Treatment Precautions Activity: early mobility: pass, ok per DICK Grewal for therapy Equipment: gait belt, RW, repositioning sling, ex cath Telemetry/Patrol Police Lieutenant: No Oxygen Used: room air Other: (S) high fall risk, significant anxiety/panic attacks with mobility, 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, B AFOs Pain Assessment Pain Assessment: 0-10 Pain Score: 8 Pain Location: Knee Pain Orientation: Left Pain Intervention(s): Repositioned (RN notified for pain meds) Response to Interventions: Quiet ADL / IADL Grooming Assistance: Standby assist, Setup Grooming Deficit: Wash/dry face (pt declined to completed oral care at this time) Toilet/Commode Assistance: Total assist (external catheter) UE Dressing Assistance: Max assist UE Dressing Deficit: Thread RUE, Thread LUE, Pull down in back, Fasteners (don gown as robe) Footwear Assistance: Max assist Footwear Deficit: R sock, L sock, R shoe, L shoe, Orthotic/brace (B LE AFO- max assist to don/doff) Other: pt deferred oral care this AM; joshua to wash face after set up Home Management - IADL Other: pt deferred oral care this AM; joshua to wash face after set up Hearing / Speech / Vision Hearing: Within Functional Limits, No hearing aid Speech: Delayed responses, Other (Comment) Current Vision: Wears glasses for distance only Cognition Orientation Level: Oriented to person, Oriented to place Following Commands: Follows one step commands with repetition, Follows one step commands with increased time Safety Judgment: Decreased awareness of need for assistance, Decreased awareness of need for safety Awareness of Errors: Assistance required to correct errors made, Assistance required to identify errors made, Decreased awareness of errors Insight of Deficits: Decreased awareness of deficits Problem Solving: Assistance required to identify errors made, Assistance required to generate solutions, Assistance required to implement solutions Other: pt given choice of use of nic stedy or rw to transfer from bed to chair; pt chose nic stedy; however was unable to clear bottom from bed x2 attempts; used maxi matt to transfer bed to chair this date. Bed Mobility Rolling: Contact guard assist, Right, Left Supine to Sit: Min assist, Right, Verbal cues (minx2) Sit to Supine: Mod assist (mod x2) Other: HOB slightly elevated to complete supine to sit- pt took extended time to complete minx2; ptcompleted sit to supine modx2- increased vc's for use of bed rail each way; pt with decreased carryover. Transfers Sit to Stand: Max assist, Visual cues (max x2) Other: Attempted to stand from bed to nic stedy x2- max x2 assist- pt unable to clear bottom off bed- pt reports increased L knee pain with movement; used maxi matt for safe transfer bed to chair Gait Other: NT Balance Sitting Balance: Static: Fair Sitting Balance: Dynamic: Fair (fair-) Standing Balance: Static: (pt unable to get to stand this date.) Other: pt engaged in unsupported sitting at EOB approx 15' in prep for getting up to nic stedy- sba - pt sat unssupported an additional 15' in chair -with few posterior LOB required min assist x1 tocorrect balance. 04/28/25 0937 UE ROM UE ROM exercises performed? Yes Scapular retraction x Shoulder flexion/extension x Shoulder horizontal abduction/adduction x Elbow flexion/extension x Other B UE AROM Repetitions 15 Activity Tolerance Endurance: Tolerates >30 minutes activity with rest breaks Other: (S) pt took extended time to get from supine to sit- approx 10' with increased encouragement; pt also took extended time to get from sit to stand at nic stedy approx 15' - unable to stand at this time d/t L knee pain- pt remained up in chair with call light in reach and chair alarm on. Plan Occupational Therapy Care Plan Occupational Therapy Care Plan (Active) Template: OT - Occupational Therapy Problem: Activity Tolerance Dates: Start: 04/23/25 Disciplines: OT Goal: Tolerate > 30 minutes of activity WITH rest breaks Dates: Start: 04/23/25 Expected End: 05/22/25 Description: Goal Description: Disciplines: OT Outcomes Date/Time User Outcome 04/28/25 0958 FAITH Friedman Progressing 04/25/25 1141 FAITH Devlin Progressing Goal Note filed on 04/28/25 0958 by FAITH Friedman Evaluation of progress towards goal: Problem: Bed Mobility Dates: Start: 04/23/25 Disciplines: OT Goal: Patient will perform bed mobility with Contact Guard Dates: Start: 04/23/25 Expected End: 05/22/25 Description: Goal Description: Disciplines: OT Outcomes Date/Time User Outcome 04/28/25 0958 FAITH Friedman Progressing 04/25/25 1141 FAITH Devlin Progressing Goal Note filed on 04/28/25 0958 by FAITH Friedman Evaluation of progress towards goal: Problem: Cognition Dates: Start: 04/23/25 Disciplines: OT Goal: Improve cognition Dates: Start: 04/23/25 Expected End: 05/22/25 Description: Pt will demo improved safety awareness during tx sessions as evidenced by lack of needfor vc's for safety to increase independence in all functional activity. Disciplines: OT Outcomes Date/Time User Outcome 04/25/25 1141 FAITH Devlin Not Progressing Goal Note filed on 04/25/25 1141 by FAITH Devlin Evaluation of progress towards goal: Problem: Functional Mobility Dates: Start: 04/23/25 Disciplines: OT Goal: Patient will perform functional mobility with Contact Guard Dates: Start: 04/23/25 Expected End: 05/22/25 Description: Goal Description: Disciplines: OT Outcomes Date/Time User Outcome 04/25/25 1141 FAITH Devlin Not Progressing Goal Note filed on 04/25/25 1141 by FAITH Devlin Evaluation of progress towards goal: Problem: Other (Customize) Dates: Start: 04/23/25 Disciplines: OT Goal: Improve Dates: Start: 04/23/25 Expected End: 05/22/25 Description: Pt will demo setup level with all UB ADLs using AE prn to facilitate return to PLOF. Disciplines: OT Outcomes Date/Time User Outcome 04/25/25 1141 FAITH Devlin Progressing Goal Note filed on 04/25/25 114 by FAITH Devlin Evaluation of progress towards goal: Problem: Other (Customize) Dates: Start: 04/23/25 Disciplines: OT Goal: Improve Dates: Start: 04/23/25 Expected End: 05/22/25 Description: Pt will complete all LB ADLs with Min A level or better using AE prn to facilitate return to PLOF Disciplines: OT Problem: Sitting Balance Dates: Start: 04/23/25 Disciplines: OT Goal: Improve balance to good Dates: Start: 04/23/25 Expected End: 05/22/25 Description: Static Dynamic Disciplines: OT Outcomes Date/Time User Outcome 04/28/25 0958 FAITH Friedman Progressing 04/25/25 1141 FAITH Devlin Progressing Goal Note filed on 04/28/25 0958 by FAITH Friedman Evaluation of progress towards goal: Problem: Standing Balance Dates: Start: 04/23/25 Disciplines: OT Goal: Improve balance to fair Dates: Start: 04/23/25 Expected End: 05/22/25 Description: Static Dynamic Disciplines: OT Outcomes Date/Time User Outcome 04/28/25 0958 FAITH Friedman Not Progressing 04/25/25 1141 FAITH Devlin Progressing Goal Note filed on 04/28/25 0958 by FAITH Friedman Evaluation of progress towards goal: Problem: Strength Dates: Start: 04/23/25 Disciplines: OT Goal: Improve strength Dates: Start: 04/23/25 Expected End: 05/22/25 Description: Pt will demo good understanding of BUE strengthening HEP to increase endurance for functional transfers, mobility, and ADL with RW. Disciplines: OT Outcomes Date/Time User Outcome 04/25/25 1141 FAITH Devlin Progressing Goal Note filed on 04/25/25 1141 by FAITH Devlin Evaluation of progress towards goal: Problem: Transfers Dates: Start: 04/23/25 Disciplines: OT Goal: Patient will perform transfers with Contact Guard Dates: Start: 04/23/25 Expected End: 05/22/25 Description: Goal Description: Disciplines: OT Outcomes Date/Time User Outcome 04/28/25 0958 FAITH Friedman Not Progressing 04/25/25 1141 FAITH Devlin Progressing Goal Note filed on 04/28/25 0958 by FAITH Friedman Evaluation of progress towards goal: Occupational Therapy Care Plan (Resolved) There are no resolved problems. Principal Problem: Altered mental status Cosigned by RICHIE Lynn at 04/28/2025 2:39 PM EDT Associated attestation - Annalise Olivera OTR/L - 04/28/2025 2:39 PM EDT I have reviewed and agree with this note and education documentation for this visit. [facility]06-24-2025 Progress note* Discharge Planning Note - JAMES Albright - 04/28/2025 9:05 AM EDT DISCHARGE PLANNING NOTE Case discussed in daily transition rounds and chart reviewed by CN. Barriers to discharge include peer to peer, updated PT/OT Discharge Plan remains: [facility]. Insurance is intending to deny SNF stay and peer to peer information was provided to [facility]. Social work informing MD and message was left with insurance tocomplete peer to peer- wait final determination. CN will continue to follow and is available should any further needs arise. - JAMES ALBRIGHT 04/28/25 9:05 AM MD completed peer to peer and insurance approved SNF stay. Discharge written, CRF complete. Social work task [facility] to arrange BLS transport and [facility] ambulance has been arranged. [facility] notified of discharge and CRF sent. HENS submitted. RN updated. is aware and agreeable to transition plan. - JAMES ALBRIGHT 04/28/25 3:36 PM [facility]06-24-2025 Plan of care note* Plan of Care - Kirk Hernandez RN - 04/28/2025 12:52 AM EDT Problem: Knowledge Deficit Goal: Patient/patient client relations representative demonstrates understanding of disease process, treatment plan,medications, and discharge instructions Description: INTERVENTIONS 1. Complete learning assessment and assess knowledge base 2. Provide teaching at level of understanding 3. Provide teaching via preferred learning method(s) Outcome: Not Progressing Note: Evaluation of progress towards goal: RN completes assessments and includes patient in plan ofcare. RN answers any questions related to plan of care during hospital stay, assesses knowledge base, provides teaching and checks understanding. RN educates based on learning methods and includes family if present/needed. Problem: Pain Goal: Patient goal is pain score less than 4, able to rest, and participant in treatment plan as appropriate Description: INTERVENTIONS: 1. Encourage patient or legal client relations representative to report early pain and ask for pain medicine when needed 2. Assess pain using appropriate pain scale and include the scale used when documenting 3. Administer analgesics based on type and severity of pain and evaluate response within appropriate time frame 4. Implement non-pharmacological measures as appropriate and evaluate response 5. Consider cultural and social influences on pain and pain management 6. Notify LIP if interventions ineffective or patient reports new pain 7. Monitor vital signs including pulse ox, end-tidal CO2 based on pain intervention 8. Reassess pain per policy 9. Teach patient or legal client relations representative interventions for comforting Outcome: Progressing Note: Evaluation of progress towards goal: RN encourages patient to report early pain and ask for pain medicine when needed, assess pain using appropriate pain scale and include the scale used when documenting. RN administers medications based on type and severity of pain and evaluates response within one hour. RN implements non-pharmacological measures. RN monitors vital signs including pulse ox, and reassess pain per policy. RN educates patient of interventions, medications, and plan of care. Problem: Safety Goal: Patient will be injury free during hospitalization Description: INTERVENTIONS: 1. Assess patient's risk for falls and implement fall prevention plan of care per policy 2. Provide and maintain a safe environment 3. Proper use of double Identifiers 4. Medication administration using the 5 rights 5. Hand hygiene 6. Specimens are labeled at the bedside 7. Instruct patient/ patient client relations representative about use of safety devices 8. Include patient/ patient client relations representative in decisions related to safety Outcome: Progressing Note: Evaluation of progress towards goal: RN assesses patient's risk for falls and implements fallprevention plan of care per policy. RN provides and maintains a safe environment, uses double identifiers, completes hand hygiene. RN completes medication administration using the 5 rights. RN educates about safety needs, plan of care, and incorporates patient/family in decisions related to safety needs. Problem: Infection Goal: Absence of infection during hospitalization Description: INTERVENTIONS 1. Assess and monitor for signs and symptoms of infection. 2. Monitor lab/diagnostic results. 3. Monitor all insertion sites i.e., indwelling lines, tubes and drains. 4. Monitor endotracheal (as able) and nasal secretions for changes in amount and color. 5. Administer medications as ordered. 6. Instruct and encourage patient and family to use good hand hygiene technique. 7. Identify and instruct patient/patient client relations representative in use of appropriate isolation precautionsfor identified infection/symptoms. 8. Provide and discuss with patient/patient client relations representative on educational MDRO sheet. 9. Encourage and monitor nutritional status daily and consult golf club head inspector and adjuster if indicated. 10. Implement neutropenic guidelines as needed. Outcome: Progressing Note: Evaluation of progress towards goal: RN assesses and monitors for signs and symptoms of infection, monitors lab/diagnostic results, monitors all insertion sites, and LDAs. RN administers medications as ordered. RN provides education and encouragement to family and patient on hand hygiene. RN i ncorporates appropriate isolation precautions for identified infection/symptoms. Problem: Discharge Planning Goal: Discharge to post-acute care, other facility, or home with appropriate resources Description: Patient's goal is: INTERVENTIONS 1. Conduct assessment to determine patient/family and health care team treatment goals, and need for post-acute services based on payer coverage, community resources, and patient preferences, and barriers to discharge 2. Coordinate with Social work, Care Navigation, and Utilization Review to arrange appropriate level of services according to patient's needs based on patient preference and payer coverage in collaboration with the physician and health care team 3. Address psychosocial, clinical, and financial barriers to discharge as identified in assessment in conjunction with the patient/family and health care team 4. Consult appropriate ancillary services (i.e.. PT/OT/ST, etc) as needed 5. Communicate with and update the patient/family, physician, and health care team regarding progress on the discharge plan 6. Identify discharge learning needs (meds, wound care, etc). 7. Arrange for needed discharge transportation as appropriate Outcome: Progressing Note: Evaluation of progress towards goal: RN conducts assessment to determine patient/family and health care team treatment goals, needs for post-acute services, patient preferences, and barriers todischarge. RN coordinates with Swk and Care [facility] based on appropriate level of services according topatient's needs in collaboration with the physician and health care team. RN addresses psychosocial, clinical, and financial barriers to discharge as identified in assessment in conjunction with the patient/family and health care team. Ancillary services (i.e.. PT/OT/ST, etc) consulted as needed. RN communicates with and updates the patient/family, physician, and health care team regarding progress on the discharge plan. RN identifies discharge learning needs (meds, wound care, etc). Problem: Potential for Compromised Skin Integrity Goal: Skin integrity is maintained or improved Description: Patient's goal is: INTERVENTIONS 1. Perform initial skin assessment on admission and as needed 2. Turn patient every 2 hours and PRN 3. Relieve pressure to bony prominences 4. Avoid shearing 5. Keep skin clean and dry 6. Alternate a full bath with partial baths for elderly 7. Apply lotion/moisturizer on skin 8. Monitor patient's hygiene practices 9. Float heels 10. Collaborate with interdisciplinary team and initiate plans and interventions as needed Outcome: Progressing Note: Evaluation of progress towards goal: RN performs initial skin assessment on admission and as needed. RN repositions/turns patient every 2 hours and PRN if needed. RN relieves pressure to bony prominences, avoids skin tears, keeps skin clean and dry, and provides hygiene/bathing based on policy and protocol. RN collaborates with interdisciplinary team and initiate plans and interventions as needed. Problem: Moderate - High Risk Fall Score Description: Disla Fall Score of =/> 25 or indicated by [facility] Assessment Goal: Patient should be free from fall Description: Interventions: 1. [place] to environment 2. Hourly rounds addressing the 4 P's (Pain, Positioning, Possessions, Potty) 3. Clear area of hazards (spills, clutter, electrical cords, unnecessary equipment) 4. Place equipment (bed & TV controls, call light, phone, urinal) within reach 5. Encourage patient to wear glasses and hearing aides as appropriate 6. Maintain bed in lowest position 7. Lock wheels on bed/wheelchair 8. Provide adequate lighting, including night light 9. Assess need for additional bedding, food/fluids, pain med's prior to sleep/routinely 10. Provide gripper slippers or personal non-skid footwear 11. Teach patient and patient client relations representative to maintain environment for safety and engage in all aspects of fall prevention program 12. Remind patient to call for help before getting out of bed 13. Initiate bed/chair/exit alarms supportive devices as appropriate, (chair wedge, no-skid floor mat, raised edge mattress, hip protectors) 14. Locate patient bed assignment for optimal visualization 15. Evaluate and identify Safe Patient Handling Equipment needs 16. Provide supervision when out of bed or chair 17. Utilize gait belt as needed to assist with ambulation 18. Place adaptive equipment (cane, walker) within reach 19. Request patient client relations representative bring adaptive equipment/mobility aids from home or obtain and provide as needed 20. Consult pharmacy regarding effects of med's affecting mobility, cognition, and alternatives 21. Obtain physician order for PT if risk factors associated with mobility are present 22. Obtain physician order for OT as appropriate 23. Utilize diversional activities 24. Educate patient and patient client relations representative how to maintain a safe environment during visitationtimes (notify nurse prior to leaving bedside) 25. Consider appropriateness of medical or non-medical lab director 26. Set up voiding schedule as appropriate (every 2 hours) Outcome: Progressing Note: Evaluation of progress towards goal: RN addresses needs related to orientation to environment. RN completes hourly rounds addressing the 4 P's (Pain, Positioning, Possessions, Potty). RN clearsarea of hazards, places equipment within reach, encourages patient to wear glasses, hearing aides, non- slip socks as appropriate. Bed in lowest position, wheels locked, adequate lighting provided, assessment of needs completed with hourly rounding. RN provides education for patient and family to maintain environment for safety and engage in all aspects of fall prevention. Patient encouraged to call for help prior to getting out of bed using call light. Bed alarm and supportive devices in place as appropriate. SPH needs assessed and identified, supervision provided when appropriate. PT/OT consulted if risk factors identified and needed. Educate patient and family how to maintain a safe environment. [facility]06-23-2025 Plan of care note* Plan of Care - Uri Valenzuela RN - 04/27/2025 7:25 PM EDT Problem: Pain Goal: Patient goal is pain score less than 4, able to rest, and participant in treatment plan as appropriate Description: INTERVENTIONS: 1. Encourage patient or legal client relations representative to report early pain and ask for pain medicine when needed 2. Assess pain using appropriate pain scale and include the scale used when documenting 3. Administer analgesics based on type and severity of pain and evaluate response within appropriate time frame 4. Implement non-pharmacological measures as appropriate and evaluate response 5. Consider cultural and social influences on pain and pain management 6. Notify LIP if interventions ineffective or patient reports new pain 7. Monitor vital signs including pulse ox, end-tidal CO2 based on pain intervention 8. Reassess pain per policy 9. Teach patient or legal client relations representative interventions for comforting Outcome: Progressing Note: Evaluation of progress towards goal: Lap Layer assessed that patient has had pain reassessed perpolicy. Implement no-pharmacological measures as appropriate and evaluate response with appropriatetime frame. Monitor vital signs including pulse ox, end-tidal c02 based on paint intervention. Problem: Safety Goal: Patient will be injury free during hospitalization Description: INTERVENTIONS: 1. Assess patient's risk for falls and implement fall prevention plan of care per policy 2. Provide and maintain a safe environment 3. Proper use of double Identifiers 4. Medication administration using the 5 rights 5. Hand hygiene 6. Specimens are labeled at the bedside 7. Instruct patient/ patient client relations representative about use of safety devices 8. Include patient/ patient client relations representative in decisions related to safety Outcome: Progressing Note: Evaluation of progress towards goal: Lap Layer assessed that patient has been provided and maintained a safe environment. Medication administration using the 5 rights. Proper use of double identifiers. Problem: Infection Goal: Absence of infection during hospitalization Description: INTERVENTIONS 1. Assess and monitor for signs and symptoms of infection. 2. Monitor lab/diagnostic results. 3. Monitor all insertion sites i.e., indwelling lines, tubes and drains. 4. Monitor endotracheal (as able) and nasal secretions for changes in amount and color. 5. Administer medications as ordered. 6. Instruct and encourage patient and family to use good hand hygiene technique. 7. Identify and instruct patient/patient client relations representative in use of appropriate isolation precautionsfor identified infection/symptoms. 8. Provide and discuss with patient/patient client relations representative on educational MDRO sheet. 9. Encourage and monitor nutritional status daily and consult golf club head inspector and adjuster if indicated. 10. Implement neutropenic guidelines as needed. Outcome: Progressing Note: Evaluation of progress towards goal: Lap Layer has been assessed and monitored for signs and symptoms of infection. Administered medications as ordered. Monitored all insertion sites. Problem: Knowledge Deficit Goal: Patient/patient client relations representative demonstrates understanding of disease process, treatment plan,medications, and discharge instructions Description: INTERVENTIONS 1. Complete learning assessment and assess knowledge base 2. Provide teaching at level of understanding 3. Provide teaching via preferred learning method(s) Outcome: Progressing Note: Evaluation of progress towards goal: Lap Layer has assessed that patient has been provided teaching at level of understanding. Provided teaching via preferred learning methods. Completed learning assessment and assessed knowledge base. Problem: Discharge Planning Goal: Discharge to post-acute care, other facility, or home with appropriate resources Description: Patient's goal is: INTERVENTIONS 1. Conduct assessment to determine patient/family and health care team treatment goals, and need for post-acute services based on payer coverage, community resources, and patient preferences, and barriers to discharge 2. Coordinate with Social work, Care Navigation, and Utilization Review to arrange appropriate level of services according to patient's needs based on patient preference and payer coverage in collaboration with the physician and health care team 3. Address psychosocial, clinical, and financial barriers to discharge as identified in assessment in conjunction with the patient/family and health care team 4. Consult appropriate ancillary services (i.e.. PT/OT/ST, etc) as needed 5. Communicate with and update the patient/family, physician, and health care team regarding progress on the discharge plan 6. Identify discharge learning needs (meds, wound care, etc). 7. Arrange for needed discharge transportation as appropriate Outcome: Progressing Note: Evaluation of progress towards goal: Lap Layer assessed the patient for the following. Identify discharge learning needs. Arrange for needed discharge transportation as appropriate. Coordinate with social work and care navigation to arrange appropriate level of services according to patient's needs based on patient preference. Problem: Potential for Compromised Skin Integrity Goal: Skin integrity is maintained or improved Description: Patient's goal is: INTERVENTIONS 1. Perform initial skin assessment on admission and as needed 2. Turn patient every 2 hours and PRN 3. Relieve pressure to bony prominences 4. Avoid shearing 5. Keep skin clean and dry 6. Alternate a full bath with partial baths for elderly 7. Apply lotion/moisturizer on skin 8. Monitor patient's hygiene practices 9. Float heels 10. Collaborate with interdisciplinary team and initiate plans and interventions as needed Outcome: Progressing Note: Evaluation of progress towards goal: Lap Layer assessed that patient is being repositioned Q2. Keeping skin clean and dry. Relieving pressure to bony prominences. Goal: Patient's nutritional intake is adequate Description: Patient's goal is: INTERVENTIONS 1. Assess and monitor food intake and supplements, patient food preferences, nausea, vomiting, labs, oral cavity (gums, teeth, tongue, mucosa), proper denture fit, and cultural beliefs 2. Monitor for signs of hypoglycemia and hyperglycemia 3. Collaborate with interdisciplinary team and initiate plan and interventions as ordered 4. Monitor patient's weight 5. Assist patient with meals/food selection 6. Assist patient with eating 7. Allow adequate time for meals 8. Provide pleasant environment during mealtime 9. Increase social contact during mealtimes 10. Plan activities to conserve energy 11. Encourage/perform oral hygiene as appropriate 12. Encourage patient to take dietary supplement as ordered 13. Collaborate with clinical golf club head inspector and adjuster 14. Include patient/ patient's client relations representative in decisions related to nutrition Outcome: Progressing Note: Evaluation of progress towards goal: Lap Layer assessed that patient is allowed adequate time for meals. Provided pleasant environment during mealtime. Encouraged/perform oral hygiene as appropriate. Problem: Urinary Incontinence Goal: Perineal skin integrity is maintained or improved Description: INTERVENTIONS 1. Assess genitourinary system, perineal skin, labs (urinalysis), and history of incontinence to include past management, aggravating, and alleviating factors 2. Keep skin clean and dry 3. Apply skin protectant 4. Develop skin care regimen 5. Provide privacy when changing patients incontinence device to maintain their dignity 6. Consider placing an indwelling catheter 7. Collaborate with interdisciplinary team and initiate plans and interventions as needed Outcome: Progressing Note: Evaluation of progress towards goal: Lap Layer assessed the patient for the following. Keep skinclean and dry. Assess perineal skin. Maintain indwelling catheter. Problem: Moderate - High Risk Fall Score Description: Disla Fall Score of =/> 25 or indicated by [facility] Assessment Goal: Patient should be free from fall Description: Interventions: 1. [place] to environment 2. Hourly rounds addressing the 4 P's (Pain, Positioning, Possessions, Potty) 3. Clear area of hazards (spills, clutter, electrical cords, unnecessary equipment) 4. Place equipment (bed & TV controls, call light, phone, urinal) within reach 5. Encourage patient to wear glasses and hearing aides as appropriate 6. Maintain bed in lowest position 7. Lock wheels on bed/wheelchair 8. Provide adequate lighting, including night light 9. Assess need for additional bedding, food/fluids, pain med's prior to sleep/routinely 10. Provide gripper slippers or personal non-skid footwear 11. Teach patient and patient client relations representative to maintain environment for safety and engage in all aspects of fall prevention program 12. Remind patient to call for help before getting out of bed 13. Initiate bed/chair/exit alarms supportive devices as appropriate, (chair wedge, no-skid floor mat, raised edge mattress, hip protectors) 14. Locate patient bed assignment for optimal visualization 15. Evaluate and identify Safe Patient Handling Equipment needs 16. Provide supervision when out of bed or chair 17. Utilize gait belt as needed to assist with ambulation 18. Place adaptive equipment (cane, walker) within reach 19. Request patient client relations representative bring adaptive equipment/mobility aids from home or obtain and provide as needed 20. Consult pharmacy regarding effects of med's affecting mobility, cognition, and alternatives 21. Obtain physician order for PT if risk factors associated with mobility are present 22. Obtain physician order for OT as appropriate 23. Utilize diversional activities 24. Educate patient and patient client relations representative how to maintain a safe environment during visitationtimes (notify nurse prior to leaving bedside) 25. Consider appropriateness of medical or non-medical lab director 26. Set up voiding schedule as appropriate (every 2 hours) Outcome: Progressing Note: Evaluation of progress towards goal: Lap Layer has been assessed in the following. [place] to environment, hourly rounds addressing the 4 P's (Pain, Positioning, Possessions, Potty). Maintain bed in lowest position. Remind patient to call for help before getting out of bed. [facility]06-23-2025 Progress note* Discharge Planning Note - Rhea Dueñas - 04/27/2025 4:59 PM EDT DISCHARGE PLANNING NOTE [employer] has requested a peer to peer for this case. Call : [phone] opt. : 4 Deadline is: 04/28/2025 12:00 PM EST Please have the following information when calling: Patient Name : Edvin Roland Date of : 1945 Ref # : [id number] [facility]06-23-2025 Progress note* Discharge Planning Note - JAMES Albright - 04/27/2025 12:06 PM EDT DISCHARGE PLANNING NOTE Case discussed in daily transition rounds and chart reviewed by CN. Barriers to discharge include SNF precert, elyte replacement, monitor K Discharge Plan remains: [facility]. Waiting insurance approval for SNF. is aware and agreeable to transition plan and anxious for discharge. CN will continue to follow and is available should any further needs arise. - JAMES ALBRIGHT 04/27/25 12:07 PM [facility]06-23-2025 History of Present illness Narrative* Mikie Mcleod MD - 04/27/2025 10:10 AM EDT Images from the original note were not included. [facility] 04/27/2025 Patient Name: Edvin Roland : 1945 Problem List: Principal Problem: Altered mental status Assessment and Plan: Hallucinations Confusion, acute encephalopathy Episodes of confusion have been intermittently occurring since February. Discussed with his for about 20 minutes. Episodes had began with sudden onset about 2 days following back surgery which was on 02/24/25. No signs of stroke or infection on multiple MRI's. She reports that she does not believe he was depressed prior to the surgery but that he could be now due to not being able to do what he previously could and due to spending so much time in care facilities.Discussed that potentially her PCP may want to consider trial of SSRI therapy on follow up to see if it leads to any improvement. Also may be related to his decline in functional status since the surgery as well as a hospital/facility related delirium component, though it also continued upon returning home. 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 Follow up with neurosurgery as scheduled No signs of infection on recent MRI lumbar spine Continued physical therapy Essential hypertension Continue amlodipine and hydrochlorothiazide Gout Continue allopurinol DVT prophylaxis Heparin subcutaneously Scheduled Medications: allopurinoL, 300 mg, oral, Daily amLODIPine, 5 mg, oral, Daily aspirin, 81 mg, oral, BID atorvastatin, 40 mg, oral, Daily calcium carbonate-vitamin D3, 1 tablet, oral, BID with meals cyanocobalamin, 1,000 mcg, oral, Daily famotidine, 20 mg, oral, Q12H heparin (porcine), 5,000 Units, subcutaneous, Q12H PATITO hydroCHLOROthiazide, 25 mg, oral, Daily melatonin, 5 mg, oral, Nightly potassium chloride, 20 mEq, oral, BID sodium chloride, 3 mL, intravenous, Q12H PATITO Continuous Infusions: PRN Medications: acetaminophen alum-mag hydroxide-simeth barium sulfate barium sulfate barium sulfate dextrose dextrose 50 % in water (D50W) glucagon (human recombinant) magnesium sulfate magnesium sulfate ondansetron potassium chloride OR potassium chloride OR potassium chloride IV (Adult) QUEtiapine sennosides-docusate sodium sodium chloride sodium chloride Subjective: No events overnight or significant acute change. present bedside. Objective: Vitals: Temp: [36.6 C (97.8 F)-37.1 C (98.7 F)] 36.6 C (97.8 F) Pulse: [67-79] 70 Resp: [15-18] 18 BP: (106-140)/(58-78) 132/78 SpO2: [93 %-95 %] 94 % O2 Device: None (Room air) O2 Flow Rate (L/min): [0 L/min] 0 L/min Intake/Output Summary (Last 24 hours) at 04/27/2025 1740 Last data filed at 04/27/2025 0534 Gross per 24 hour Intake -- Output 900 ml Net -900 ml Physical Exam Vitals reviewed. Constitutional: General: He is not in acute distress. Appearance: He is not toxic-appearing. HENT: Head: Normocephalic. Eyes: General: Right eye: No discharge. Left eye: No discharge. Extraocular Movements: Extraocular movements intact. Cardiovascular: Rate and Rhythm: Normal rate. Heart sounds: No murmur heard. Pulmonary: Effort: Pulmonary effort is normal. Breath sounds: No wheezing or rales. Abdominal: General: Abdomen is flat. There is no distension. Musculoskeletal: Right lower leg: No edema. Left lower leg: No edema. Skin: General: Skin is warm. Findings: No rash. Neurological: Mental Status: He is alert. Mental status is at baseline. Psychiatric: Mood and Affect: Mood normal. Behavior: Behavior normal. Thought Content: Thought content normal. Labs: Recent Results (from the past 24 hours) Extra Tubes Collection Time: 04/27/25 5:37 AM Narrative The following orders were created for panel order Extra Tubes. Procedure Abnormality Status --------- ------ PST TOP[[id number]] Final result Please view results for these tests on the individual orders. PST TOP Collection Time: 04/27/25 5:37 AM Result Value Ref Range Extra Tube Auto Resulted Magnesium Collection Time: 04/27/25 5:37 AM Result Value Ref Range MAGNESIUM 2.0 1.8 - 2.6 mg/dL Basic Metabolic Panel Collection Time: 04/27/25 5:37 AM Result Value Ref Range SODIUM 140 134 - 146 mmol/L POTASSIUM 3.1 (L) 3.5 - 5.0 mmol/L CHLORIDE 103 98 - 109 mmol/L CARBON DIOXIDE 29 22 - 32 mmol/L ANION GAP 8 5 - 15 mmol/L BLOOD UREA NITROGEN 21 5 - 27 mg/dL CREATININE 0.71 0.60 - 1.30 mg/dL GLUCOSE 101 (H) 65 - 99 mg/dL CALCIUM 9.2 8.5 - 10.5 mg/dL EGFR Non-Race Dependent >90 >=60 ml/min/1.73sq.m CBC auto differential Collection Time: 04/27/25 5:38 AM Result Value Ref Range WBC 7.1 4 - 11 x10E9/L RBC Count 4.30 4.1 - 5.7 X10E12/L Hemoglobin 12.6 (L) 13 - 17 g/dL Hematocrit 37.5 (L) 39 - 50 % MCV 87 80 - 100 fL MCH 29.4 27 - 34 pg MCHC 33.7 32 - 36 g/dL RDW 14.5 11.5 - 15 % Platelet Count 215 150 - 450 X10E9/L MPV 9.4 7 - 12 fL Neutrophils Relative 70.7 % Lymphocytes Relative 15.8 % Monocytes Relative 11.8 % Eosinophils Relative 1.0 % Basophils Relative 0.7 % Neutrophils Absolute (A) 5.0 1.5 - 6.6 10*3/uL Lymphocytes Absolute 1.1 1.0 - 3.5 10*3/uL Monocytes Absolute 0.8 0.0 - 0.9 10*3/uL Eosinophils Absolute 0.1 0.0 - 0.4 10*3/uL Basophils Absolute 0.0 0.0 - 0.2 10*3/uL Differential Type AUTOMATED DIFFERENTIAL Images: No results found. Micro: Microbiology Results No results found for the last 168 hours. * Mikie Mcleod MD - 04/26/2025 2:44 PM EDT Images from the original note were not included. [facility]26/2025 Patient Name: Edvin Roland : 1945 Problem List: Principal Problem: Altered mental status Assessment and Plan: Hallucinations Confusion, acute encephalopathy Episodes of confusion have been intermittently occurring since February. Does not appear to be due to any metabolic or infectious etiology EEG did not show seizure activity Thought to be related to disturbed sleep cycle by neurology Started on Seroquel 25 mg nightly and continued on Melatonin 5 mg nightly Neurology signed off Patient appears to be doing well seen however his reports there continued to be intermittent episodes of confusion. 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 Follow up with neurosurgery as scheduled No signs of infection on recent MRI lumbar spine Continued physical therapy Essential hypertension Continue amlodipine and hydrochlorothiazide Gout Continue allopurinol DVT prophylaxis Heparin subcutaneously Scheduled Medications: allopurinoL, 300 mg, oral, Daily amLODIPine, 5 mg, oral, Daily aspirin, 81 mg, oral, BID atorvastatin, 40 mg, oral, Daily calcium carbonate-vitamin D3, 1 tablet, oral, BID with meals cyanocobalamin, 1,000 mcg, oral, Daily famotidine, 20 mg, oral, Q12H heparin (porcine), 5,000 Units, subcutaneous, Q12H PATITO hydroCHLOROthiazide, 25 mg, oral, Daily melatonin, 5 mg, oral, Nightly potassium chloride, 20 mEq, oral, BID sodium chloride, 3 mL, intravenous, Q12H PATITO Continuous Infusions: PRN Medications: acetaminophen alum-mag hydroxide-simeth barium sulfate barium sulfate barium sulfate dextrose dextrose 50 % in water (D50W) glucagon (human recombinant) ondansetron QUEtiapine sennosides-docusate sodium sodium chloride sodium chloride Subjective: Patient lucid when seen. Responding to questions appropriately and oriented to place and time. Wifepresent bedside. She reports that the patient called her this morning confused but he appears to bemore lucid now. Objective: Vitals: Temp: [36.5 C (97.7 F)-36.7 C (98.1 F)] 36.7 C (98.1 F) Pulse: [66-73] 73 Resp: [15-18] 18 BP: (115-150)/(60-75) 115/60 SpO2: [91 %-97 %] 93 % O2 Device: None (Room air) O2 Flow Rate (L/min): [0 L/min] 0 L/min No intake or output data in the 24 hours ending 04/26/25 1444 Physical Exam Vitals reviewed. Constitutional: General: He is not in acute distress. Appearance: He is not toxic-appearing. HENT: Head: Normocephalic. Eyes: General: Right eye: No discharge. Left eye: No discharge. Extraocular Movements: Extraocular movements intact. Cardiovascular: Rate and Rhythm: Normal rate. Heart sounds: No murmur heard. Pulmonary: Effort: Pulmonary effort is normal. Breath sounds: No wheezing or rales. Abdominal: General: Abdomen is flat. There is no distension. Musculoskeletal: Right lower leg: No edema. Left lower leg: No edema. Skin: General: Skin is warm. Findings: No rash. Neurological: Mental Status: He is alert. Mental status is at baseline. Psychiatric: Mood and Affect: Mood normal. Behavior: Behavior normal. Thought Content: Thought content normal. Labs: Recent Results (from the past 24 hours) CBC auto differential Collection Time: 04/26/25 7:37 AM Result Value Ref Range WBC 7.0 4 - 11 x10E9/L RBC Count 4.35 4.1 - 5.7 X10E12/L Hemoglobin 13.0 13 - 17 g/dL Hematocrit 37.7 (L) 39 - 50 % MCV 87 80 - 100 fL MCH 29.9 27 - 34 pg MCHC 34.6 32 - 36 g/dL RDW 14.6 11.5 - 15 % Platelet Count 205 150 - 450 X10E9/L MPV 9.0 7 - 12 fL Neutrophils Relative 73.5 % Lymphocytes Relative 14.1 % Monocytes Relative 10.1 % Eosinophils Relative 1.1 % Basophils Relative 1.2 % Neutrophils Absolute (A) 5.1 1.5 - 6.6 10*3/uL Lymphocytes Absolute 1.0 1.0 - 3.5 10*3/uL Monocytes Absolute 0.7 0.0 - 0.9 10*3/uL Eosinophils Absolute 0.1 0.0 - 0.4 10*3/uL Basophils Absolute 0.1 0.0 - 0.2 10*3/uL Differential Type AUTOMATED DIFFERENTIAL Basic Metabolic Panel Collection Time: 04/26/25 7:37 AM Result Value Ref Range SODIUM 140 134 - 146 mmol/L POTASSIUM 3.0 (L) 3.5 - 5.0 mmol/L CHLORIDE 104 98 - 109 mmol/L CARBON DIOXIDE 26 22 - 32 mmol/L ANION GAP 10 5 - 15 mmol/L BLOOD UREA NITROGEN 20 5 - 27 mg/dL CREATININE 0.59 (L) 0.60 - 1.30 mg/dL GLUCOSE 105 (H) 65 - 99 mg/dL CALCIUM 9.4 8.5 - 10.5 mg/dL EGFR Non-Race Dependent >90 >=60 ml/min/1.73sq.m Images: No results found. Micro: Microbiology Results No results found for the last 168 hours. * Mikie Mcleod MD - 04/25/2025 3:38 PM EDT Images from the original note were not included. [facility] [place] [facility] 04/25/2025 Patient Name: Edvin Roland : 1945 Problem List: Principal Problem: Altered mental status Assessment and Plan: Hallucinations Confusion, acute encephalopathy Episodes of confusion have been intermittently occurring since February. Does not appear to be due to any metabolic or infectious etiology EEG did not show seizure activity Thought to be related to disturbed sleep cycle by neurology Started on Seroquel 25 mg nightly and continued on Melatonin 5 mg nightly Neurology signed off Patient appears to be doing well today PT/OT recommended SNF History of L2-L5 fusion durotomy 02/24/25 Follow up with neurosurgery as scheduled No signs of infection on recent MRI lumbar spine Continued physical therapy Essential hypertension Continue amlodipine and hydrochlorothiazide Gout Continue allopurinol DVT prophylaxis Heparin subcutaneously Scheduled Medications: allopurinoL, 300 mg, oral, Daily amLODIPine, 5 mg, oral, Daily aspirin, 81 mg, oral, BID atorvastatin, 40 mg, oral, Daily calcium carbonate-vitamin D3, 1 tablet, oral, BID with meals cyanocobalamin, 1,000 mcg, oral, Daily famotidine, 20 mg, oral, Q12H heparin (porcine), 5,000 Units, subcutaneous, Q12H PATITO hydroCHLOROthiazide, 25 mg, oral, Daily melatonin, 5 mg, oral, Nightly potassium chloride, 20 mEq, oral, BID sodium chloride, 3 mL, intravenous, Q12H PATITO Continuous Infusions: PRN Medications: acetaminophen alum-mag hydroxide-simeth barium sulfate barium sulfate barium sulfate dextrose dextrose 50 % in water (D50W) glucagon (human recombinant) ondansetron QUEtiapine sennosides-docusate sodium sodium chloride sodium chloride Subjective: Patient AOx3. Reports sleeping well last night. present bedside. Objective: Vitals: Temp: [36.4 C (97.5 F)-37.1 C (98.7 F)] 36.7 C (98 F) Pulse: [69-74] 72 Resp: [16-17] 16 BP: (113-143)/(66-80) 140/69 SpO2: [93 %-97 %] 94 % O2 Device: None (Room air) O2 Flow Rate (L/min): [0 L/min] 0 L/min Intake/Output Summary (Last 24 hours) at 04/25/2025 1538 Last data filed at 04/25/2025 0300 Gross per 24 hour Intake -- Output 200 ml Net -200 ml Physical Exam Vitals reviewed. Constitutional: General: He is not in acute distress. Appearance: He is not toxic-appearing. HENT: Head: Normocephalic. Eyes: General: Right eye: No discharge. Left eye: No discharge. Extraocular Movements: Extraocular movements intact. Cardiovascular: Rate and Rhythm: Normal rate. Heart sounds: No murmur heard. Pulmonary: Effort: Pulmonary effort is normal. Breath sounds: No wheezing or rales. Abdominal: General: Abdomen is flat. There is no distension. Musculoskeletal: Right lower leg: No edema. Left lower leg: No edema. Skin: General: Skin is warm. Findings: No rash. Neurological: Mental Status: He is alert. Mental status is at baseline. Psychiatric: Mood and Affect: Mood normal. Behavior: Behavior normal. Thought Content: Thought content normal. Labs: Recent Results (from the past 24 hours) CBC auto differential Collection Time: 04/25/25 6:17 AM Result Value Ref Range WBC 8.0 4 - 11 x10E9/L RBC Count 4.39 4.1 - 5.7 X10E12/L Hemoglobin 13.4 13 - 17 g/dL Hematocrit 39.0 39 - 50 % MCV 89 80 - 100 fL MCH 30.5 27 - 34 pg MCHC 34.4 32 - 36 g/dL RDW 15.0 11.5 - 15 % Platelet Count 204 150 - 450 X10E9/L MPV 9.2 7 - 12 fL Neutrophils Relative 68.2 % Lymphocytes Relative 17.5 % Monocytes Relative 11.1 % Eosinophils Relative 2.5 % Basophils Relative 0.7 % Neutrophils Absolute (A) 5.5 1.5 - 6.6 10*3/uL Lymphocytes Absolute 1.4 1.0 - 3.5 10*3/uL Monocytes Absolute 0.9 0.0 - 0.9 10*3/uL Eosinophils Absolute 0.2 0.0 - 0.4 10*3/uL Basophils Absolute 0.1 0.0 - 0.2 10*3/uL Differential Type AUTOMATED DIFFERENTIAL Basic Metabolic Panel Collection Time: 04/25/25 6:17 AM Result Value Ref Range SODIUM 141 134 - 146 mmol/L POTASSIUM 3.4 (L) 3.5 - 5.0 mmol/L CHLORIDE 106 98 - 109 mmol/L CARBON DIOXIDE 24 22 - 32 mmol/L ANION GAP 11 5 - 15 mmol/L BLOOD UREA NITROGEN 21 5 - 27 mg/dL CREATININE 0.57 (L) 0.60 - 1.30 mg/dL GLUCOSE 96 65 - 99 mg/dL CALCIUM 9.2 8.5 - 10.5 mg/dL EGFR Non-Race Dependent >90 >=60 ml/min/1.73sq.m Images: Fluoroscopy swallow motility function Result Date: 04/24/2025 FL SWALLOW MOTILITY FUNCTION HISTORY: Oropharyngeal [...] additional details and recommendations. Approved by Res Kari James MD on 04/24/2025 10:05 AM IJuan R MD have personally reviewed the image(s) and agree with and/or edited the report Finalized by Juan R Jeffrey MD on 04/24/2025 11:15 AM Micro: Microbiology Results No results found for the last 168 hours. * Mikie Mcleod MD - 04/24/2025 1:11 PM EDT Images from the original note were not included. [facility] [place] [facility] 04/24/2025 Patient Name: Edvin Roland : 1945 Problem List: Principal Problem: Altered mental status Assessment and Plan: Hallucinations Confusion, acute encephalopathy Episodes of confusion have been intermittently occurring since February. Does not appear to be due to any metabolic or infectious etiology EEG did not show seizure activity Thought to be related to disturbed sleep cycle by neurology Started on Seroquel 25 mg nightly and continued on Melatonin 5 mg nightly Neurology signed off PT/OT recommended SNF History of L2-L5 fusion durotomy 02/24/25 Follow up with neurosurgery as scheduled No signs of infection on recent MRI lumbar spine Continued physical therapy Essential hypertension Continue amlodipine and hydrochlorothiazide Gout Continue allopurinol DVT prophylaxis Heparin subcutaneously Scheduled Medications: allopurinoL, 300 mg, oral, Daily amLODIPine, 5 mg, oral, Daily aspirin, 81 mg, oral, BID atorvastatin, 40 mg, oral, Daily calcium carbonate-vitamin D3, 1 tablet, oral, BID with meals cyanocobalamin, 1,000 mcg, oral, Daily famotidine, 20 mg, oral, Q12H heparin (porcine), 5,000 Units, subcutaneous, Q12H PATITO hydroCHLOROthiazide, 25 mg, oral, Daily melatonin, 5 mg, oral, Nightly potassium chloride, 20 mEq, oral, BID sodium chloride, 3 mL, intravenous, Q12H PATITO Continuous Infusions: PRN Medications: acetaminophen alum-mag hydroxide-simeth barium sulfate barium sulfate barium sulfate dextrose dextrose 50 % in water (D50W) glucagon (human recombinant) ondansetron QUEtiapine sennosides-docusate sodium sodium chloride sodium chloride Subjective: Patient became more lucid yesterday evening. He continues to have intermittent episodes of confusion associated with drowsiness. Objective: Vitals: Temp: [36.7 C (98 F)-37 C (98.6 F)] 37 C (98.6 F) Pulse: [62-74] 70 Resp: [15-20] 15 BP: (135-157)/(63-86) 135/75 SpO2: [94 %-97 %] 97 % O2 Device: None (Room air) O2 Flow Rate (L/min): [0 L/min] 0 L/min Intake/Output Summary (Last 24 hours) at 04/24/2025 1311 Last data filed at 04/24/2025 0500 Gross per 24 hour Intake -- Output 300 ml Net -300 ml Physical Exam Vitals reviewed. Constitutional: General: He is not in acute distress. Appearance: He is not toxic-appearing. HENT: Head: Normocephalic. Eyes: General: Right eye: No discharge. Left eye: No discharge. Extraocular Movements: Extraocular movements intact. Cardiovascular: Rate and Rhythm: Normal rate. Heart sounds: No murmur heard. Pulmonary: Effort: Pulmonary effort is normal. Breath sounds: No wheezing or rales. Abdominal: General: Abdomen is flat. There is no distension. Musculoskeletal: Right lower leg: No edema. Left lower leg: No edema. Skin: General: Skin is warm. Findings: No rash. Neurological: Mental Status: He is alert. Mental status is at baseline. Psychiatric: Mood and Affect: Mood normal. Behavior: Behavior normal. Thought Content: Thought content normal. Labs: Recent Results (from the past 24 hours) Urinalysis Collection Time: 04/23/25 5:08 PM Specimen: Urine Result Value Ref Range COLOR Yellow Yellow, Colorless TURBIDITY Clear Clear SPECIFIC GRAVITY 1.020 1.003 - 1.035 NITRITE Negative Negative PH,URINE 7.0 5.0 - 8.5 LEUKOCYTE ESTERASE Negative Negative PROTEIN Negative Negative KETONES (URINE) Negative Negative UROBILINOGEN <1.1 eu/dL <1.1 eu/dL BILIRUBIN (URINE) Negative Negative BLOOD/HGB Negative Negative GLUCOSE (URINE) Negative Negative Images: Fluoroscopy swallow motility function Result Date: 04/24/2025 FL SWALLOW MOTILITY FUNCTION HISTORY: Oropharyngeal [...] additional details and recommendations. Approved by Res Kari James MD on 04/24/2025 10:05 AM IJuan R MD have personally reviewed the image(s) and agree with and/or edited the report Finalized by Juan R Jeffrey MD on 04/24/2025 11:15 AM EEG Video Monitoring Daily Result Date: 04/23/2025 Images from the original result were not included. [place] [facility] Video/EEG Monitoring REPORT EEG Service Date(s): 04/23/25 from 06:05 until 09:09 Date of Report: 04/23/25 History: Edvin Roland is 79 y.o. male with altered mental status who is undergoing video/EEG monitoring to evaluate for seizures. Centrally active medications: None. Procedure: This video/EEG monitoring was acquired with electrodes placed according to the [id number] electrode placement system,using collodion. The EEG was reviewed using multiple, reformattable montages. Closed captioned video monitoring of behavior, synchronous with EEG recording is included in the analysis, as is digital/spectral analysis of EEGwaveforms. A single EKG channel was recorded for cardiac rhythm monitoring. Technical description: Background is composed of 5-10 V diffuse beta frequency intermixed with 15-25 V theta and intermittent 30-50 multifocal polymorphic delta frequency. The posterior dominant rhythm reaches 8 Hz, but is not well-sustained. No epileptiform abnormalities are noted in the form of spikes or sharp waves. Noelectrographic seizure activity is recorded. Stage II sleep is noted, correlated with the presence of bilaterally symmetric spindle activity and generalized delta frequencies. EEG diagnosis: This vide o/EEG monitoring is abnormal due to the presence of mild to moderate generalized background slowing. EEG interpretation: This video/EEG monitoring is abnormal due to the presence of mild to moderate generalized background slowing, consistent with encephalopathy of nonspecific etiology. The absence of epileptiform abnormalities does not exclude the possibility of intermittent seizures. Video/EEG monitoring was discontinued on this day. Cydney Myers M.D., Ph.D. State Epidemiologist [place] [facility] Background EEG Video Monitoring Daily Result Date: 04/23/2025 Images from the original result were not included. [place] [facility] Video/EEG Monitoring REPORT EEG Service Date(s): 04/23/25 @ 04:26 until 06:05 Date of Report: 04/23/25 History: Edvin Roland is 79 y.o. male with altered mental status who is undergoing video/EEG monitoring to evaluate for seizures. Centrally active medications: None. Procedure: This video/EEG monitoring was acquired with electrodes placed according to the [id number] electrode placement system,using collodion. The EEG was reviewed using multiple, reformattable montages. Closed captioned video monitoring of behavior, sy nchronous with EEG recording is included in the [...] and generalized delta frequencies. EEG diagnosis: This video/EEGmonitoring is abnormal due to the presence of mild to moderate generalized background slowing. EEG interpretation: This video/EEG monitoring is abnormal due to the presence of mild to moderate generalized background slowing, consistent with encephalopathy of nonspecific etiology. The absence of epileptiform abnormalities does not exclude the possibility of intermittent seizures. Cydney Fernandez M.D., Ph.D. State Epidemiologist [place] [facility] Background Baseline Routine EEG Result Date: 04/23/2025 Images from the original result were not included. [place] [facility] EEG REPORT EEG Service Date: 04/23/25 Date of Report: 04/23/25 History: Edvin Roland is a 79 y.o. male with long-term post-operative altered mental status since February, who is undergoing EEG to evaluate for seizures. Centrally active medications: None. Procedure: This EEG was acquired with electrodes placed according to the [id number] electrode placement system. The EEG was acquired [...] the form of spikes or sharp waves. Noelectrographic seizure activity is recorded. Stage II sleep [...] follow this study. Cydney Fernandez M.D., Ph.D. Associate ProfessorUT Neurology Fluoroscopy less than one hour Result Date: 04/23/2025 FL FLUOROSCOPY UP TO 1 HOUR [...] Res Deonte James MD on 04/23/2025 9:45 AMI, Wilbert Crews have personally reviewed the image(s) and agree with and/or edited the report Finalized by Wilbert Crews on 04/23/2025 10:07 AM Micro: Microbiology Results No results found for the last 168 hours. * Latonya Goodrich MD - 04/23/2025 9:48 AM EDT Images from the original note were not included. [facility] Neurology General Neurology Consultation Progress Note Consult Neurology Service: [phone] Primary Team: Chief Complaint and Reason for Consultation: Brief Summary: Edvin Roland is a 79 y.o. year old male for whom Neurology was consulted for chief complaint ofaltered mental status and hallucinations of unknown etiology. Patient presented to [place] ED 04/20with altered mentation and weakness. Prior to this, patient had lumbar spine surgery 02/24 and experienced hallucinations, restlessness, and altered mentation during admission. CTH, MRI brain, and EEG were unremarkable at that time. Patient was started on Seroquel which was later discontinued afterpatient found to have UTI and improvement in mentation after antibiotics. He was discharged to a SNF and was doing well for 3-4 days before symptoms recurred after abnormal sleep schedule. Patient was discharged home from SNF on 04/16 and did well over the weekend. On 04/20, patient developed worsening lower extremity weakness and altered mentation with unremarkable workup. CTH and MRI brain demonstrated no acute findings. MRI lumbar spine demonstrated postsurgical changes. Patient was transferred for EEG since read would be delayed at [place]. Interval History: Patient evaluated at bedside this AM. No acute overnight events. Patient is drowsy with altered mentation. He is oriented to person and year. Patient states age is 10 years old and month is December. He continues to have lower extremity weakness. Pertinent past Medical History/Family/Social History reviewed as per initial HPI. Pertinent Systems reviewed as per initial HPI, and negative as below except for mentioned above. Medications: None Physical Exam Vital Signs: Vitals: 04/23/25 0754 BP: (!) 158/95 Pulse: 74 Resp: 15 Temp: 36.9 C (98.4 F) SpO2: 93% Physical Exam Constitutional: Appearance: Normal appearance. Comments: Drowsy HENT: Head: Normocephalic and atraumatic. Eyes: Extraocular Movements: Extraocular movements intact. Conjunctiva/sclera: Conjunctivae normal. Pupils: Pupils are equal, round, and reactive to light. Cardiovascular: Rate and Rhythm: Normal rate and regular rhythm. Pulses: Normal pulses. Heart sounds: Normal heart sounds. No murmur heard. No friction rub. No gallop. Pulmonary: Effort: Pulmonary effort is normal. Breath sounds: Normal breath sounds. No wheezing, rhonchi or rales. Skin: General: Skin is warm and dry. Capillary Refill: Capillary refill takes less than 2 seconds. Neurological: General: No focal deficit present. Cranial Nerves: Cranial nerves 2-12 are intact. Sensory: Sensation is intact. Motor: Weakness present. Comments: Oriented to person and year Agitated No aphasia or dysarthria noted Bilateral upper extremity strength 5/5 Right lower extremity strength 4/5 Left lower extremity strength 3/5 Pertinent Labs: Labs WNL Imaging: EEG Video Monitoring Daily Result Date: 04/23/2025 Images from the original result were not included. [place] [facility] Video/EEG Monitoring REPORT EEG Service Date(s): 04/23/25 from 06:05 until 09:09 Date of Report: 04/23/25 History: Edvin Roland is 79 y.o. male with altered mental status who is undergoing video/EEG monitoring to evaluate for seizures. Centrally active medications: None. Procedure: This video/EEG monitoring was acquired with electrodes placed according to the [id number] electrode placement system,using collodion. The EEG was reviewed using multiple, reformattable montages. Closed captioned video monitoring of behavior, synchronous with EEG recording is included in the analysis, as is digital/spectral analysis of EEGwaveforms. A single EKG channel was recorded for cardiac rhythm monitoring. Technical description: Background is composed of 5-10 V diffuse beta frequency intermixed with 15-25 V theta and intermittent 30-50 multifocal polymorphic delta frequency. The posterior dominant rhythm reaches 8 Hz, but is not well-sustained. No epileptiform abnormalities are noted in the form of spikes or sharp waves. Noelectrographic seizure activity is recorded. Stage II sleep is noted, correlated with the presence of bilaterally symmetric spindle activity and generalized delta frequencies. EEG diagnosis: This vide o/EEG monitoring is abnormal due to the presence of mild to moderate generalized background slowing. EEG interpretation: This video/EEG monitoring is abnormal due to the presence of mild to moderate generalized background slowing, consistent with encephalopathy of nonspecific etiology. The absence of epileptiform abnormalities does not exclude the possibility of intermittent seizures. Video/EEG monitoring was discontinued on this day. Cydney Myers M.D., Ph.D. State Epidemiologist [place] [facility] Background EEG Video Monitoring Daily Result Date: 04/23/2025 Images from the original result were not included. [place] [facility] Video/EEG Monitoring REPORT EEG Service Date(s): 04/23/25 @ 04:26 until 06:05 Date of Report: 04/23/25 History: Edvin Roland is 79 y.o. male with altered mental status who is undergoing video/EEG monitoring to evaluate for seizures. Centrally active medications: None. Procedure: This video/EEG monitoring was acquired with electrodes placed according to the Dnwccqjmbhgit44-40 electrode placement system,using collodion. The EEG was reviewed using multiple, reformattable montages. Closed captioned video monitoring of behavior, sy nchronous with EEG recording is included in the [...] and generalized delta frequencies. EEG diagnosis: This video/EEGmonitoring is abnormal due to the presence of mild to moderate generalized background slowing. EEG interpretation: This video/EEG monitoring is abnormal due to the presence of mild to moderate generalized background slowing, consistent with encephalopathy of nonspecific etiology. The absence of epileptiform abnormalities does not exclude the possibility of intermittent seizures. Cydney Fernandez M.D., Ph.D. State Epidemiologist [place] [facility] Background Baseline Routine EEG Result Date: 04/23/2025 Images from the original result were not included. [place] [facility] EEG REPORT EEG Service Date: 04/23/25 Date of Report: 04/23/25 History: Edvin Roland is a 79 y.o. male with long-term post-operative altered mental status since February, who is undergoing EEG to evaluate for seizures. Centrally active medications: None. Procedure: This EEG was acquired with electrodes placed according to the [id number] electrode placement system. The EEG was acquired [...] the form of spikes or sharp waves. Noelectrographic seizure activity is recorded. Stage II sleep [...] follow this study. Cydney Fernandez M.D., Ph.D. Associate ProfessorUT Neurology Fluoroscopy less than one hour Result Date: 04/23/2025 FL FLUOROSCOPY UP TO 1 HOUR [...] by Manuelito James MD on 04/23/2025 9:45 AMI, Wilbert Crews have personally reviewed the image(s) and agree with and/or edited the report Finalized by Wilbert Crews on 04/23/2025 10:07 AM Assessment: Edvin Roland is a 79 year old male with fluctuating mentation, visual hallucinations, restlessness,sleep disruption, and weakness since lumbar spine surgery in February. Infectious and metabolic workupunremarkable, MRI brain without contrast without acute findings. Patient transferred from [place] for EEG. Impression: Encephalopathy, likely delirium secondary to disturbed sleep cycle. Plan: Discontinue video EEG Primary team obtaining imaging from [facility] with an MRI brain and lumbar spine without contrast reportedly performed this month. Initiate Seroquel 25 mg at night in addition to melatonin 5 mg at night to aid in management of thedelirium. Delirium precautions. The neurology consult service will continue to follow. Jacy Tolentino DO PGY-1 Emergency Medicine Resident [facility] Edited by: Latonya Goodrich MD 04/23/25 Staffed with: Dr. Awad This patient is being followed by the Neurology Resident service. Contact attending directly during these hours: Sunday to 7:30-8:30 A.M. to Sunday 12-1:00 p.m. Primary Neurology service: [phone] Consult neurology service: [phone] Resident Stroke Service: [phone] If the patient belongs to the [facility] service please contact the [facility] directly. Cosigned by Asha Awad MD at 04/23/2025 11:20 PM EDT Associated attestation - Asha Awad MD - 04/23/2025 11:20 PM EDT I have discussed the case of Edvin Roland, including pertinent history and exam findings with the resident. I have seen and examined the patient and the adams elements of the encounter have been performed by me. I agree with the assessment, plan and orders as documented by the resident with changes made to the note as needed. No results found for: LDLCALC , LDLDIRECT No results found for: CHLPL No results found for: TRIG No results found for: HDL No results found for: LDLCALC No results found for: LABVLDL No components found for: LABA1C No components found for: EAG Lab Results Component Value Date [id number] 04/23/2025 Neurological work up: CT head CTA head and neck MRI brain 2 D echo Assessment and recommendations Delirium Status post L2-L5 decompression and fusion with durotomy, performed on 02/24/2025 Upon examination, the patient is awake, alert, and oriented, following commands appropriately and moving all extremities. He appears to be near his neurological baseline. Neurodiagnostic workup, including a recent MRI of the brain, has been unremarkable. EEG was consistent with [id number] generalized background slowing without evidence of seizureactivity. The EEG has since been discontinued. For management of sundowning, I recommend continuing melatonin 25 mg at bedtime and Seroquel 25 mg at bedtime as needed. Discussed with family at the bedside. No further recommendation from Neurology standpoint. Neurology will sign off. Asha Awad MD Neurology This note is created with the assistance of a speech-recognition program. While intending to generate a document that actually reflects the content of the visit, the document can still have some errors including those of syntax and sound a- like substitutions which may escape proofreading. In such instances, actual meaning can be extrapolated by contextual derivation. documented in this encounter[facility] Plan of care note * Plan of Care - Kirk Hernandez RN - 04/26/2025 11:27 PM EDT Problem: Knowledge Deficit Goal: Patient/patient client relations representative demonstrates understanding of disease process, treatment plan,medications, and discharge instructions Description: INTERVENTIONS 1. Complete learning assessment and assess knowledge base 2. Provide teaching at level of understanding 3. Provide teaching via preferred learning method(s) Outcome: Not Progressing Note: Evaluation of progress towards goal: RN completes assessments and includes patient in plan ofcare. RN answers any questions related to plan of care during hospital stay, assesses knowledge base, provides teaching and checks understanding. RN educates based on learning methods and includes family if present/needed. Problem: Pain Goal: Patient goal is pain score less than 4, able to rest, and participant in treatment plan as appropriate Description: INTERVENTIONS: 1. Encourage patient or legal client relations representative to report early pain and ask for pain medicine when needed 2. Assess pain using appropriate pain scale and include the scale used when documenting 3. Administer analgesics based on type and severity of pain and evaluate response within appropriate time frame 4. Implement non-pharmacological measures as appropriate and evaluate response 5. Consider cultural and social influences on pain and pain management 6. Notify LIP if interventions ineffective or patient reports new pain 7. Monitor vital signs including pulse ox, end-tidal CO2 based on pain intervention 8. Reassess pain per policy 9. Teach patient or legal client relations representative interventions for comforting Outcome: Progressing Note: Evaluation of progress towards goal: RN encourages patient to report early pain and ask for pain medicine when needed, assess pain using appropriate pain scale and include the scale used when documenting. RN administers medications based on type and severity of pain and evaluates response within one hour. RN implements non-pharmacological measures. RN monitors vital signs including pulse ox, and reassess pain per policy. RN educates patient of interventions, medications, and plan of care. Problem: Safety Goal: Patient will be injury free during hospitalization Description: INTERVENTIONS: 1. Assess patient's risk for falls and implement fall prevention plan of care per policy 2. Provide and maintain a safe environment 3. Proper use of double Identifiers 4. Medication administration using the 5 rights 5. Hand hygiene 6. Specimens are labeled at the bedside 7. Instruct patient/ patient client relations representative about use of safety devices 8. Include patient/ patient client relations representative in decisions related to safety Outcome: Progressing Note: Evaluation of progress towards goal: RN assesses patient's risk for falls and implements fallprevention plan of care per policy. RN provides and maintains a safe environment, uses double identifiers, completes hand hygiene. RN completes medication administration using the 5 rights. RN educates about safety needs, plan of care, and incorporates patient/family in decisions related to safety needs. Problem: Infection Goal: Absence of infection during hospitalization Description: INTERVENTIONS 1. Assess and monitor for signs and symptoms of infection. 2. Monitor lab/diagnostic results. 3. Monitor all insertion sites i.e., indwelling lines, tubes and drains. 4. Monitor endotracheal (as able) and nasal secretions for changes in amount and color. 5. Administer medications as ordered. 6. Instruct and encourage patient and family to use good hand hygiene technique. 7. Identify and instruct patient/patient client relations representative in use of appropriate isolation precautionsfor identified infection/symptoms. 8. Provide and discuss with patient/patient client relations representative on educational MDRO sheet. 9. Encourage and monitor nutritional status daily and consult golf club head inspector and adjuster if indicated. 10. Implement neutropenic guidelines as needed. Outcome: Progressing Note: Evaluation of progress towards goal: RN assesses and monitors for signs and symptoms of infection, monitors lab/diagnostic results, monitors all insertion sites, and LDAs. RN administers medications as ordered. RN provides education and encouragement to family and patient on hand hygiene. RN i ncorporates appropriate isolation precautions for identified infection/symptoms. Problem: Discharge Planning Goal: Discharge to post-acute care, other facility, or home with appropriate resources Description: Patient's goal is: INTERVENTIONS 1. Conduct assessment to determine patient/family and health care team treatment goals, and need for post-acute services based on payer coverage, community resources, and patient preferences, and barriers to discharge 2. Coordinate with Social work, Care Navigation, and Utilization Review to arrange appropriate level of services according to patient's needs based on patient preference and payer coverage in collaboration with the physician and health care team 3. Address psychosocial, clinical, and financial barriers to discharge as identified in assessment in conjunction with the patient/family and health care team 4. Consult appropriate ancillary services (i.e.. PT/OT/ST, etc) as needed 5. Communicate with and update the patient/family, physician, and health care team regarding progress on the discharge plan 6. Identify discharge learning needs (meds, wound care, etc). 7. Arrange for needed discharge transportation as appropriate Outcome: Progressing Note: Evaluation of progress towards goal: RN conducts assessment to determine patient/family and health care team treatment goals, needs for post-acute services, patient preferences, and barriers todischarge. RN coordinates with Swk and Care [facility] based on appropriate level of services according topatient's needs in collaboration with the physician and health care team. RN addresses psychosocial, clinical, and financial barriers to discharge as identified in assessment in conjunction with the patient/family and health care team. Ancillary services (i.e.. PT/OT/ST, etc) consulted as needed. RN communicates with and updates the patient/family, physician, and health care team regarding progress on the discharge plan. RN identifies discharge learning needs (meds, wound care, etc). Problem: Potential for Compromised Skin Integrity Goal: Skin integrity is maintained or improved Description: Patient's goal is: INTERVENTIONS 1. Perform initial skin assessment on admission and as needed 2. Turn patient every 2 hours and PRN 3. Relieve pressure to bony prominences 4. Avoid shearing 5. Keep skin clean and dry 6. Alternate a full bath with partial baths for elderly 7. Apply lotion/moisturizer on skin 8. Monitor patient's hygiene practices 9. Float heels 10. Collaborate with interdisciplinary team and initiate plans and interventions as needed Outcome: Progressing Note: Evaluation of progress towards goal: RN performs initial skin assessment on admission and as needed. RN repositions/turns patient every 2 hours and PRN if needed. RN relieves pressure to bony prominences, avoids skin tears, keeps skin clean and dry, and provides hygiene/bathing based on policy and protocol. RN collaborates with interdisciplinary team and initiate plans and interventions as needed. Problem: Moderate - High Risk Fall Score Description: Disla Fall Score of =/> 25 or indicated by [facility] Assessment Goal: Patient should be free from fall Description: Interventions: 1. [place] to environment 2. Hourly rounds addressing the 4 P's (Pain, Positioning, Possessions, Potty) 3. Clear area of hazards (spills, clutter, electrical cords, unnecessary equipment) 4. Place equipment (bed & TV controls, call light, phone, urinal) within reach 5. Encourage patient to wear glasses and hearing aides as appropriate 6. Maintain bed in lowest position 7. Lock wheels on bed/wheelchair 8. Provide adequate lighting, including night light 9. Assess need for additional bedding, food/fluids, pain med's prior to sleep/routinely 10. Provide gripper slippers or personal non-skid footwear 11. Teach patient and patient client relations representative to maintain environment for safety and engage in all aspects of fall prevention program 12. Remind patient to call for help before getting out of bed 13. Initiate bed/chair/exit alarms supportive devices as appropriate, (chair wedge, no-skid floor mat, raised edge mattress, hip protectors) 14. Locate patient bed assignment for optimal visualization 15. Evaluate and identify Safe Patient Handling Equipment needs 16. Provide supervision when out of bed or chair 17. Utilize gait belt as needed to assist with ambulation 18. Place adaptive equipment (cane, walker) within reach 19. Request patient client relations representative bring adaptive equipment/mobility aids from home or obtain and provide as needed 20. Consult pharmacy regarding effects of med's affecting mobility, cognition, and alternatives 21. Obtain physician order for PT if risk factors associated with mobility are present 22. Obtain physician order for OT as appropriate 23. Utilize diversional activities 24. Educate patient and patient client relations representative how to maintain a safe environment during visitationtimes (notify nurse prior to leaving bedside) 25. Consider appropriateness of medical or non-medical lab director 26. Set up voiding schedule as appropriate (every 2 hours) Outcome: Progressing Note: Evaluation of progress towards goal: RN addresses needs related to orientation to environment. RN completes hourly rounds addressing the 4 P's (Pain, Positioning, Possessions, Potty). RN clearsarea of hazards, places equipment within reach, encourages patient to wear glasses, hearing aides, non- slip socks as appropriate. Bed in lowest position, wheels locked, adequate lighting provided, assessment of needs completed with hourly rounding. RN provides education for patient and family to maintain environment for safety and engage in all aspects of fall prevention. Patient encouraged to call for help prior to getting out of bed using call light. Bed alarm and supportive devices in place as appropriate. SPH needs assessed and identified, supervision provided when appropriate. PT/OT consulted if risk factors identified and needed. Educate patient and family how to maintain a safe environment. [facility]06-22-2025 Plan of care note* Plan of Care - Uri Valenzuela RN - 04/26/2025 7:39 PM EDT Problem: Safety Goal: Patient will be injury free during hospitalization Description: INTERVENTIONS: 1. Assess patient's risk for falls and implement fall prevention plan of care per policy 2. Provide and maintain a safe environment 3. Proper use of double Identifiers 4. Medication administration using the 5 rights 5. Hand hygiene 6. Specimens are labeled at the bedside 7. Instruct patient/ patient client relations representative about use of safety devices 8. Include patient/ patient client relations representative in decisions related to safety Outcome: Progressing Note: Evaluation of progress towards goal: Lap Layer assessed that patient has been provided and maintained a safe environment. Medication administration using the 5 rights. Proper use of double identifiers. Problem: Infection Goal: Absence of infection during hospitalization Description: INTERVENTIONS 1. Assess and monitor for signs and symptoms of infection. 2. Monitor lab/diagnostic results. 3. Monitor all insertion sites i.e., indwelling lines, tubes and drains. 4. Monitor endotracheal (as able) and nasal secretions for changes in amount and color. 5. Administer medications as ordered. 6. Instruct and encourage patient and family to use good hand hygiene technique. 7. Identify and instruct patient/patient client relations representative in use of appropriate isolation precautionsfor identified infection/symptoms. 8. Provide and discuss with patient/patient client relations representative on educational MDRO sheet. 9. Encourage and monitor nutritional status daily and consult golf club head inspector and adjuster if indicated. 10. Implement neutropenic guidelines as needed. Outcome: Progressing Note: Evaluation of progress towards goal: Lap Layer has been assessed and monitored for signs and symptoms of infection. Administered medications as ordered. Monitored all insertion sites. Problem: Knowledge Deficit Goal: Patient/patient client relations representative demonstrates understanding of disease process, treatment plan,medications, and discharge instructions Description: INTERVENTIONS 1. Complete learning assessment and assess knowledge base 2. Provide teaching at level of understanding 3. Provide teaching via preferred learning method(s) Outcome: Progressing Note: Evaluation of progress towards goal: Lap Layer has assessed that patient has been provided teaching at level of understanding. Provided teaching via preferred learning methods. Completed learning assessment and assessed knowledge base. Problem: Discharge Planning Goal: Discharge to post-acute care, other facility, or home with appropriate resources Description: Patient's goal is: INTERVENTIONS 1. Conduct assessment to determine patient/family and health care team treatment goals, and need for post-acute services based on payer coverage, community resources, and patient preferences, and barriers to discharge 2. Coordinate with Social work, Care Navigation, and Utilization Review to arrange appropriate level of services according to patient's needs based on patient preference and payer coverage in collaboration with the physician and health care team 3. Address psychosocial, clinical, and financial barriers to discharge as identified in assessment in conjunction with the patient/family and health care team 4. Consult appropriate ancillary services (i.e.. PT/OT/ST, etc) as needed 5. Communicate with and update the patient/family, physician, and health care team regarding progress on the discharge plan 6. Identify discharge learning needs (meds, wound care, etc). 7. Arrange for needed discharge transportation as appropriate Outcome: Progressing Note: Evaluation of progress towards goal: Lap Layer assessed the patient for the following. Identify discharge learning needs. Arrange for needed discharge transportation as appropriate. Coordinate with social work and care navigation to arrange appropriate level of services according to patient's needs based on patient preference. Problem: Urinary Incontinence Goal: Perineal skin integrity is maintained or improved Description: INTERVENTIONS 1. Assess genitourinary system, perineal skin, labs (urinalysis), and history of incontinence to include past management, aggravating, and alleviating factors 2. Keep skin clean and dry 3. Apply skin protectant 4. Develop skin care regimen 5. Provide privacy when changing patients incontinence device to maintain their dignity 6. Consider placing an indwelling catheter 7. Collaborate with interdisciplinary team and initiate plans and interventions as needed Outcome: Progressing Note: Evaluation of progress towards goal: Lap Layer assessed the patient for the following. Keep skinclean and dry. Assess perineal skin. Maintain indwelling catheter. Problem: Moderate - High Risk Fall Score Description: Disla Fall Score of =/> 25 or indicated by [facility] Assessment Goal: Patient should be free from fall Description: Interventions: 1. [place] to environment 2. Hourly rounds addressing the 4 P's (Pain, Positioning, Possessions, Potty) 3. Clear area of hazards (spills, clutter, electrical cords, unnecessary equipment) 4. Place equipment (bed & TV controls, call light, phone, urinal) within reach 5. Encourage patient to wear glasses and hearing aides as appropriate 6. Maintain bed in lowest position 7. Lock wheels on bed/wheelchair 8. Provide adequate lighting, including night light 9. Assess need for additional bedding, food/fluids, pain med's prior to sleep/routinely 10. Provide gripper slippers or personal non-skid footwear 11. Teach patient and patient client relations representative to maintain environment for safety and engage in all aspects of fall prevention program 12. Remind patient to call for help before getting out of bed 13. Initiate bed/chair/exit alarms supportive devices as appropriate, (chair wedge, no-skid floor mat, raised edge mattress, hip protectors) 14. Locate patient bed assignment for optimal visualization 15. Evaluate and identify Safe Patient Handling Equipment needs 16. Provide supervision when out of bed or chair 17. Utilize gait belt as needed to assist with ambulation 18. Place adaptive equipment (cane, walker) within reach 19. Request patient client relations representative bring adaptive equipment/mobility aids from home or obtain and provide as needed 20. Consult pharmacy regarding effects of med's affecting mobility, cognition, and alternatives 21. Obtain physician order for PT if risk factors associated with mobility are present 22. Obtain physician order for OT as appropriate 23. Utilize diversional activities 24. Educate patient and patient client relations representative how to maintain a safe environment during visitationtimes (notify nurse prior to leaving bedside) 25. Consider appropriateness of medical or non-medical lab director 26. Set up voiding schedule as appropriate (every 2 hours) Outcome: Progressing Note: Evaluation of progress towards goal: Lap Layer has been assessed in the following. [place] to environment, hourly rounds addressing the 4 P's (Pain, Positioning, Possessions, Potty). Maintain bed in lowest position. Remind patient to call for help before getting out of bed. [id number] Plan of care note* Plan of Care - Fe Marin RN - 04/26/2025 12:35 AM EDT Problem: Pain Goal: Patient goal is pain score less than 4, able to rest, and participant in treatment plan as appropriate Description: INTERVENTIONS: 1. Encourage patient or legal client relations representative to report early pain and ask for pain medicine when needed 2. Assess pain using appropriate pain scale and include the scale used when documenting 3. Administer analgesics based on type and severity of pain and evaluate response within appropriate time frame 4. Implement non-pharmacological measures as appropriate and evaluate response 5. Consider cultural and social influences on pain and pain management 6. Notify LIP if interventions ineffective or patient reports new pain 7. Monitor vital signs including pulse ox, end-tidal CO2 based on pain intervention 8. Reassess pain per policy 9. Teach patient or legal client relations representative interventions for comforting Outcome: Progressing Note: Evaluation of progress towards goal: Patient's pain assessed using numerical scale 0-10. Nonpharmacological and phamacological measures used to manage pain as ordered. Will continue to assess and monitor as necessary Problem: Safety Goal: Patient will be injury free during hospitalization Description: INTERVENTIONS: 1. Assess patient's risk for falls and implement fall prevention plan of care per policy 2. Provide and maintain a safe environment 3. Proper use of double Identifiers 4. Medication administration using the 5 rights 5. Hand hygiene 6. Specimens are labeled at the bedside 7. Instruct patient/ patient client relations representative about use of safety devices 8. Include patient/ patient client relations representative in decisions related to safety Outcome: Progressing Note: Evaluation of progress towards goal: No events reported during shift. Bed is locked and in lowest position with side rails up x2, call light and personal items are within reach, hourly roundingcompleted, non skid socks maintained. Problem: Infection Goal: Absence of infection during hospitalization Description: INTERVENTIONS 1. Assess and monitor for signs and symptoms of infection. 2. Monitor lab/diagnostic results. 3. Monitor all insertion sites i.e., indwelling lines, tubes and drains. 4. Monitor endotracheal (as able) and nasal secretions for changes in amount and color. 5. Administer medications as ordered. 6. Instruct and encourage patient and family to use good hand hygiene technique. 7. Identify and instruct patient/patient client relations representative in use of appropriate isolation precautionsfor identified infection/symptoms. 8. Provide and discuss with patient/patient client relations representative on educational MDRO sheet. 9. Encourage and monitor nutritional status daily and consult golf club head inspector and adjuster if indicated. 10. Implement neutropenic guidelines as needed. Outcome: Progressing Note: Evaluation of progress towards goal: Handwashing and standard precautions maintained, patientremains free of signs and symptoms of infection, patient is afebrile, IV insertion site monitored. Will continue to monitor for signs and symptoms of infection. Problem: Knowledge Deficit Goal: Patient/patient client relations representative demonstrates understanding of disease process, treatment plan,medications, and discharge instructions Description: INTERVENTIONS 1. Complete learning assessment and assess knowledge base 2. Provide teaching at level of understanding 3. Provide teaching via preferred learning method(s) Outcome: Progressing Note: Evaluation of progress towards goal: Patient states understanding of plan of care, medications, and discharge plans at this time. Will continue to monitor and educate as necessary Problem: Potential for Compromised Skin Integrity Goal: Skin integrity is maintained or improved Description: Patient's goal is: INTERVENTIONS 1. Perform initial skin assessment on admission and as needed 2. Turn patient every 2 hours and PRN 3. Relieve pressure to bony prominences 4. Avoid shearing 5. Keep skin clean and dry 6. Alternate a full bath with partial baths for elderly 7. Apply lotion/moisturizer on skin 8. Monitor patient's hygiene practices 9. Float heels 10. Collaborate with interdisciplinary team and initiate plans and interventions as needed Outcome: Progressing Note: Evaluation of progress towards goal: Turn patient every 2 hours and PRN [facility]06-21-2025 Plan of care note* Plan of Care - Uri Valenzuela RN - 04/25/2025 4:02 PM EDT Problem: Pain Goal: Patient goal is pain score less than 4, able to rest, and participant in treatment plan as appropriate Description: INTERVENTIONS: 1. Encourage patient or legal client relations representative to report early pain and ask for pain medicine when needed 2. Assess pain using appropriate pain scale and include the scale used when documenting 3. Administer analgesics based on type and severity of pain and evaluate response within appropriate time frame 4. Implement non-pharmacological measures as appropriate and evaluate response 5. Consider cultural and social influences on pain and pain management 6. Notify LIP if interventions ineffective or patient reports new pain 7. Monitor vital signs including pulse ox, end-tidal CO2 based on pain intervention 8. Reassess pain per policy 9. Teach patient or legal client relations representative interventions for comforting Outcome: Progressing Note: Evaluation of progress towards goal: Lap Layer assessed that patient has had pain reassessed perpolicy. Implement no-pharmacological measures as appropriate and evaluate response with appropriatetime frame. Monitor vital signs including pulse ox, end-tidal c02 based on paint intervention. Problem: Safety Goal: Patient will be injury free during hospitalization Description: INTERVENTIONS: 1. Assess patient's risk for falls and implement fall prevention plan of care per policy 2. Provide and maintain a safe environment 3. Proper use of double Identifiers 4. Medication administration using the 5 rights 5. Hand hygiene 6. Specimens are labeled at the bedside 7. Instruct patient/ patient client relations representative about use of safety devices 8. Include patient/ patient client relations representative in decisions related to safety Outcome: Progressing Note: Evaluation of progress towards goal: Lap Layer assessed that patient has been provided and maintained a safe environment. Medication administration using the 5 rights. Proper use of double identifiers. Problem: Infection Goal: Absence of infection during hospitalization Description: INTERVENTIONS 1. Assess and monitor for signs and symptoms of infection. 2. Monitor lab/diagnostic results. 3. Monitor all insertion sites i.e., indwelling lines, tubes and drains. 4. Monitor endotracheal (as able) and nasal secretions for changes in amount and color. 5. Administer medications as ordered. 6. Instruct and encourage patient and family to use good hand hygiene technique. 7. Identify and instruct patient/patient client relations representative in use of appropriate isolation precautionsfor identified infection/symptoms. 8. Provide and discuss with patient/patient client relations representative on educational MDRO sheet. 9. Encourage and monitor nutritional status daily and consult golf club head inspector and adjuster if indicated. 10. Implement neutropenic guidelines as needed. Outcome: Progressing Note: Evaluation of progress towards goal: Lap Layer has been assessed and monitored for signs and symptoms of infection. Administered medications as ordered. Monitored all insertion sites. Problem: Knowledge Deficit Goal: Patient/patient client relations representative demonstrates understanding of disease process, treatment plan,medications, and discharge instructions Description: INTERVENTIONS 1. Complete learning assessment and assess knowledge base 2. Provide teaching at level of understanding 3. Provide teaching via preferred learning method(s) Outcome: Progressing Note: Evaluation of progress towards goal: Lap Layer has assessed that patient has been provided teaching at level of understanding. Provided teaching via preferred learning methods. Completed learning assessment and assessed knowledge base. Problem: Discharge Planning Goal: Discharge to post-acute care, other facility, or home with appropriate resources Description: Patient's goal is: INTERVENTIONS 1. Conduct assessment to determine patient/family and health care team treatment goals, and need for post-acute services based on payer coverage, community resources, and patient preferences, and barriers to discharge 2. Coordinate with Social work, Care Navigation, and Utilization Review to arrange appropriate level of services according to patient's needs based on patient preference and payer coverage in collaboration with the physician and health care team 3. Address psychosocial, clinical, and financial barriers to discharge as identified in assessment in conjunction with the patient/family and health care team 4. Consult appropriate ancillary services (i.e.. PT/OT/ST, etc) as needed 5. Communicate with and update the patient/family, physician, and health care team regarding progress on the discharge plan 6. Identify discharge learning needs (meds, wound care, etc). 7. Arrange for needed discharge transportation as appropriate Outcome: Progressing Note: Evaluation of progress towards goal: Lap Layer assessed the patient for the following. Identify discharge learning needs. Arrange for needed discharge transportation as appropriate. Coordinate with social work and care navigation to arrange appropriate level of services according to patient's needs based on patient preference. Problem: Potential for Compromised Skin Integrity Goal: Skin integrity is maintained or improved Description: Patient's goal is: INTERVENTIONS 1. Perform initial skin assessment on admission and as needed 2. Turn patient every 2 hours and PRN 3. Relieve pressure to bony prominences 4. Avoid shearing 5. Keep skin clean and dry 6. Alternate a full bath with partial baths for elderly 7. Apply lotion/moisturizer on skin 8. Monitor patient's hygiene practices 9. Float heels 10. Collaborate with interdisciplinary team and initiate plans and interventions as needed Outcome: Progressing Note: Evaluation of progress towards goal: Lap Layer assessed that patient is being repositioned Q2. Keeping skin clean and dry. Relieving pressure to bony prominences. Goal: Patient's nutritional intake is adequate Description: Patient's goal is: INTERVENTIONS 1. Assess and monitor food intake and supplements, patient food preferences, nausea, vomiting, labs, oral cavity (gums, teeth, tongue, mucosa), proper denture fit, and cultural beliefs 2. Monitor for signs of hypoglycemia and hyperglycemia 3. Collaborate with interdisciplinary team and initiate plan and interventions as ordered 4. Monitor patient's weight 5. Assist patient with meals/food selection 6. Assist patient with eating 7. Allow adequate time for meals 8. Provide pleasant environment during mealtime 9. Increase social contact during mealtimes 10. Plan activities to conserve energy 11. Encourage/perform oral hygiene as appropriate 12. Encourage patient to take dietary supplement as ordered 13. Collaborate with clinical golf club head inspector and adjuster 14. Include patient/ patient's client relations representative in decisions related to nutrition Outcome: Progressing Note: Evaluation of progress towards goal: Lap Layer assessed that patient is allowed adequate time for meals. Provided pleasant environment during mealtime. Encouraged/perform oral hygiene as appropriate. Problem: Urinary Incontinence Goal: Perineal skin integrity is maintained or improved Description: INTERVENTIONS 1. Assess genitourinary system, perineal skin, labs (urinalysis), and history of incontinence to include past management, aggravating, and alleviating factors 2. Keep skin clean and dry 3. Apply skin protectant 4. Develop skin care regimen 5. Provide privacy when changing patients incontinence device to maintain their dignity 6. Consider placing an indwelling catheter 7. Collaborate with interdisciplinary team and initiate plans and interventions as needed Outcome: Progressing Note: Evaluation of progress towards goal: Lap Layer assessed the patient for the following. Keep skinclean and dry. Assess perineal skin. Maintain external catheter. Problem: Moderate - High Risk Fall Score Description: Disla Fall Score of =/> 25 or indicated by [facility] Assessment Goal: Patient should be free from fall Description: Interventions: 1. [place] to environment 2. Hourly rounds addressing the 4 P's (Pain, Positioning, Possessions, Potty) 3. Clear area of hazards (spills, clutter, electrical cords, unnecessary equipment) 4. Place equipment (bed & TV controls, call light, phone, urinal) within reach 5. Encourage patient to wear glasses and hearing aides as appropriate 6. Maintain bed in lowest position 7. Lock wheels on bed/wheelchair 8. Provide adequate lighting, including night light 9. Assess need for additional bedding, food/fluids, pain med's prior to sleep/routinely 10. Provide gripper slippers or personal non-skid footwear 11. Teach patient and patient client relations representative to maintain environment for safety and engage in all aspects of fall prevention program 12. Remind patient to call for help before getting out of bed 13. Initiate bed/chair/exit alarms supportive devices as appropriate, (chair wedge, no-skid floor mat, raised edge mattress, hip protectors) 14. Locate patient bed assignment for optimal visualization 15. Evaluate and identify Safe Patient Handling Equipment needs 16. Provide supervision when out of bed or chair 17. Utilize gait belt as needed to assist with ambulation 18. Place adaptive equipment (cane, walker) within reach 19. Request patient client relations representative bring adaptive equipment/mobility aids from home or obtain and provide as needed 20. Consult pharmacy regarding effects of med's affecting mobility, cognition, and alternatives 21. Obtain physician order for PT if risk factors associated with mobility are present 22. Obtain physician order for OT as appropriate 23. Utilize diversional activities 24. Educate patient and patient client relations representative how to maintain a safe environment during visitationtimes (notify nurse prior to leaving bedside) 25. Consider appropriateness of medical or non-medical lab director 26. Set up voiding schedule as appropriate (every 2 hours) Outcome: Progressing Note: Evaluation of progress towards goal: Lap Layer has been assessed in the following. [place] to environment, hourly rounds addressing the 4 P's (Pain, Positioning, Possessions, Potty). Maintain bed in lowest position. Remind patient to call for help before getting out of bed. [employer] [id number] Progress note* PT/OT/STAFFING ASSOCIATE - MELISSA Devlin/John - 04/25/2025 12:07 PM EDT Occupational Therapy Treatment Discharge Recommendations for Safe Patient Transition Discharge Recommendations: Post acute - moderate Post Acute Moderate Rehab Needs: Recommend moderate intensity rehab, Tolerate 1- 2 hrs of therapy 3-5 days/wk, Subacute or chronic functional impairment 04/25/25 1131 UE ROM UE ROM exercises performed? No (Deferred due to fatigue after standing/ambulation.) 6 Clicks: Daily Activity Putting on and taking off regular lower body clothing?: Total Bathing (including washing, rinsing, drying)?: A lot Toileting, which includes using toilet, bedpan or urinal?: Total Putting on and taking off regular upper body clothing?: A lot Taking care of personal grooming such as brushing teeth?: A lot Eating meals?: A lot Scoring Daily Activity Raw Score: 10 CMS G Code Modifier: CL OT Treatment/Interventions: Functional transfer training, ADL retraining, UE strengthening/ROM, Cognitive reorientation, Endurance training, Equipment eval/education, Patient/family training, Balance, Bed mobility, Gait training, Compensatory technique education, Functional activities OT Frequency: 4-5days/week OT Duration: LOS Assessment Patient Assessment Therapy Problem List: Decreased balance, Decreased endurance, Decreased mobility, Decreased safe judgement during ADL, Decreased LE strength Patient Response to Treatment: Slow progress, decreased activity tolerance Mood/Affect: Anxious Rehab Prognosis: Good, With continued OT status post acute discharge Visit RN Communication: Yes Medical Record Reviewed: Yes OT Type of Visit: Treatment Precautions Activity: early mobility: pass, ok per RN Uri for therapy Equipment: gait belt, RW, repositioning sling, ex cath Telemetry/[employer] Lieutenant: No Oxygen Used: room air Other: (S) high fall risk, significant anxiety/panic attacks with mobility, 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, B AFOs Pain Assessment Pain Assessment: 0-10 Pain Score: 7 Pain Location: Knee Pain Orientation: Left Pain Intervention(s): Cold applied Response to Interventions: Quiet Multiple Pain Sites: No ADL / IADL Hand Dominance: Right Where Assessed: Chair Grooming Assistance: Min assist, Standby assist Grooming Deficit: Verbal cueing, Supervision/safety, Increased time to complete, Wash/dry face, Oral hygiene, Other (Comment) (Max vc's for task initiation, pt then able to complete tasks) Footwear Assistance: Max assist (seated EOB) Footwear Deficit: Orthotic/brace, R sock, L sock, R shoe, L shoe Other: Pt required Max A for footwear assistance while seated EOB, Max A to doff slipper socks, MaxA for donning socks/AFO's and L and R shoe. Pt required Min A for UB grooming overall, constant verbal cues for task initiation of oral hygiene, vc's to not swallow rinse water, increased time for completion. Pt completed face wash/dry with SBA. Home Management - IADL Other: Pt required Max A for footwear assistance while seated EOB, Max A to doff slipper socks, MaxA for donning socks/AFO's and L and R shoe. Pt required Min A for UB grooming overall, constant verbal cues for task initiation of oral hygiene, vc's to not swallow rinse water, increased time for completion. Pt completed face wash/dry with SBA. Hearing / Speech / Vision Hearing: Within Functional Limits, No hearing aid Speech: Delayed responses, Other (Comment) (soft spoken) Current Vision: Wears glasses for distance only Cognition Arousal/Alertness: Delayed responses to stimuli Attention Span: Attends with cues to redirect Orientation Level: Oriented to person Following Commands: Follows one step commands with repetition, Follows one step commands with increased time Safety Judgment: Decreased awareness of need for assistance, Decreased awareness of need for safety Awareness of Errors: Assistance required to correct errors made, Assistance required to identify errors made, Decreased awareness of errors Other: Pt voiced having a fear of falling resulting in increased anxiety. Edu pt on safety with transfers, fall prevention to decrease anxiety. Pt required encouragement and reassurance throughout toassist in reducing anxiety with transfers/standing. Bed Mobility Rolling: Mod assist, Verbal cues, Right Supine to Sit: Mod assist, Verbal cues (x2) Other: Pt completed rolling to R side with Mod A, vc's for hand placement to bed rail and mgmt of BLEs. Pt completed supine to sit with Mod A x2 with vc's for technique, assist to manage BLEs over EOB, assist to manage UB. Pt able to sit EOB without LOB. Pt left up in chair upon completion of session, RN aware, call light in reach, needs met. Transfers Sit to Stand: Max assist (x2) Stand to Sit: Max assist, Verbal cues, Visual cues (x2) Bed to Chair: Max assist, Verbal cues (x2) Other: Pt completed STS transfers with Max A x2 with vc's for hand placement and technique, elevated bed height, encouragement and reassurance throughout. Pt with post lean upon standing, required min A x2 for pt to achieve HARMONY while standing, ~1 min x2 trials standing this date, Min A x2 to maintain standing at RW. Gait Gait Assistance: Max assist (x2) Assistive Device: Rolling walker Gait Distance: 2' to chair Limiting Factors to Gait: Fatigue, Weakness, Cognition/difficulty following directions Other: Pt tolerated taking steps from bed to chair, Max A x2 with VVT cues for safety with managingRW, cues for sequencing, encouragement and reassurance throughout. Balance Sitting Balance: Static: Fair (+) Sitting Balance: Dynamic: Fair Standing Balance: Static: Poor Standing Balance: Dynamic: Poor Other: Pt able to sit unsupported EOB without UE support ~15 min without LOB. Pt required BUE support to RW in standing and during ambulation, unsteady, no overt LOB. Activity Tolerance Endurance: Tolerates >30 minutes activity with rest breaks Other: Pt with fair - tolerance to increased activity this date. Pt required increased time and effort throughout tasks, encouragement and reassurance required to reduce anxiety. Plan Occupational Therapy Care Plan Occupational Therapy Care Plan (Active) Template: OT - Occupational Therapy Problem: Activity Tolerance Dates: Start: 04/23/25 Disciplines: OT Goal: Tolerate > 30 minutes of activity WITH rest breaks Dates: Start: 04/23/25 Expected End: 05/22/25 Description: Goal Description: Disciplines: OT Outcomes Date/Time User Outcome 04/25/25 1141 FAITH Devlin Progressing Goal Note filed on 04/25/25 1141 by FAITH Devlin Evaluation of progress towards goal: Problem: Bed Mobility Dates: Start: 04/23/25 Disciplines: OT Goal: Patient will perform bed mobility with Contact Guard Dates: Start: 04/23/25 Expected End: 05/22/25 Description: Goal Description: Disciplines: OT Outcomes Date/Time User Outcome 04/25/25 1141 FAITH Devlin Progressing Goal Note filed on 04/25/25 1141 by FAITH Devlin Evaluation of progress towards goal: Problem: Cognition Dates: Start: 04/23/25 Disciplines: OT Goal: Improve cognition Dates: Start: 04/23/25 Expected End: 05/22/25 Description: Pt will demo improved safety awareness during tx sessions as evidenced by lack of needfor vc's for safety to increase independence in all functional activity. Disciplines: OT Outcomes Date/Time User Outcome 04/25/25 1141 FAITH Devlin Not Progressing Goal Note filed on 04/25/25 1141 by FAITH Devlin Evaluation of progress towards goal: Problem: Functional Mobility Dates: Start: 04/23/25 Disciplines: OT Goal: Patient will perform functional mobility with Contact Guard Dates: Start: 04/23/25 Expected End: 05/22/25 Description: Goal Description: Disciplines: OT Outcomes Date/Time User Outcome 04/25/25 1141 FAITH Devlin Not Progressing Goal Note filed on 04/25/25 1141 by FAITH Devlin Evaluation of progress towards goal: Problem: Other (Customize) Dates: Start: 04/23/25 Disciplines: OT Goal: Improve Dates: Start: 04/23/25 Expected End: 05/22/25 Description: Pt will demo setup level with all UB ADLs using AE prn to facilitate return to PLOF. Disciplines: OT Outcomes Date/Time User Outcome 04/25/25 1141 FAITH Devlin Progressing Goal Note filed on 04/25/25 1141 by FAITH Devlin Evaluation of progress towards goal: Problem: Other (Customize) Dates: Start: 04/23/25 Disciplines: OT Goal: Improve Dates: Start: 04/23/25 Expected End: 05/22/25 Description: Pt will complete all LB ADLs with Min A level or better using AE prn to facilitate return to PLOF Disciplines: OT Problem: Sitting Balance Dates: Start: 04/23/25 Disciplines: OT Goal: Improve balance to good Dates: Start: 04/23/25 Expected End: 05/22/25 Description: Static Dynamic Disciplines: OT Outcomes Date/Time User Outcome 04/25/25 1141 FAITH Devlin Progressing Goal Note filed on 04/25/25 1141 by FAITH Devlin Evaluation of progress towards goal: Problem: Standing Balance Dates: Start: 04/23/25 Disciplines: OT Goal: Improve balance to fair Dates: Start: 04/23/25 Expected End: 05/22/25 Description: Static Dynamic Disciplines: OT Outcomes Date/Time User Outcome 04/25/25 1141 FAITH Devlin Progressing Goal Note filed on 04/25/25 1141 by FAITH Devlin Evaluation of progress towards goal: Problem: Strength Dates: Start: 04/23/25 Disciplines: OT Goal: Improve strength Dates: Start: 04/23/25 Expected End: 05/22/25 Description: Pt will demo good understanding of BUE strengthening HEP to increase endurance for functional transfers, mobility, and ADL with RW. Disciplines: OT Outcomes Date/Time User Outcome 04/25/25 1141 FAITH Devlin Progressing Goal Note filed on 04/25/25 1141 by FAITH Devlin Evaluation of progress towards goal: Problem: Transfers Dates: Start: 04/23/25 Disciplines: OT Goal: Patient will perform transfers with Contact Guard Dates: Start: 04/23/25 Expected End: 05/22/25 Description: Goal Description: Disciplines: OT Outcomes Date/Time User Outcome 04/25/25 1141 FAITH Devlin Progressing Goal Note filed on 04/25/25 1141 by FAITH Devlin Evaluation of progress towards goal: Occupational Therapy Care Plan (Resolved) There are no resolved problems. Principal Problem: Altered mental status Cosigned by RICHIE Haji at 04/25/2025 4:05 PM EDT Associated attestation - Debbie Anderson OTR/L - 04/25/2025 4:05 PM EDT I have reviewed and agree with this note and education documentation for this visit. [facility]06-21-2025 Progress note* PT/OT/STAFFING ASSOCIATE - Jennie Johnson, IVY - 04/25/2025 11:51 AM EDT Physical Therapy Treatment Discharge Recommendations for Safe Patient Transition Discharge Recommendations: Post acute - moderate Post Acute Moderate Rehab Needs: Recommend moderate intensity rehab, Tolerate 1- 2 hrs of therapy 3-5 days/wk, Subacute or chronic functional impairment Current Impairments Informing Therapy Recommendation: Ambulation status/safety, Cognition, Fall risk, Endurance level 6 Clicks: Basic Mobility Turning from your back to your side while in a flat bed without using bed rails?: A lot Moving from lying on your back to sitting on side of flat bed without using bed rails?: A lot Moving to and from bed to a chair (including w/c)?: A lot Standing up from a chair using your arms (e.g. w/c or bedside chair)?: A lot To walk in hospital room?: Total Climbing 3-5 steps with a railing?: Total Scoring 6 Clicks: Basic Mobility Raw Score: 10 CMS G Code Modifier: CL PT Treatment/Interventions: Functional transfer training, LE strengthening/ROM, Endurance training,Patient/family training, Equipment eval/education, Balance, Gait training, Bed mobility, Functionalactivities PT Frequency: 4-5days/week Assessment Patient Assessment Patient Response to Treatment: Slow progress, decreased activity tolerance Visit RN Communication: Yes Medical Record Reviewed: Yes PT Type of Visit: Treatment Precautions Activity: early mobility: pass, ok to see for therapy per RNEdwin Equipment: gait belt, nic stedy, maxi matt repositioning sling, ext cath Telemetry/[employer] Lieutenant: No Oxygen Used: room air Other: high fall risk, significant anxiety/panic attacks with mobility, 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,B AFOs Pain Assessment Pain Assessment: 0-10 Pain Score: 7 Pain Location: Knee Pain Orientation: Left Pain Intervention(s): Cold applied, Repositioned, Ambulation/increased activity (RN notified) Cognition Following Commands: Follows one step commands with repetition, Follows one step commands with increased time Safety Judgment: Decreased awareness of need for assistance, Decreased awareness of need for safety Awareness of Errors: Assistance required to correct errors made, Assistance required to identify errors made, Decreased awareness of errors Insight of Deficits: Decreased awareness of deficits Bed Mobility Rolling: Mod assist, Verbal cues, Right Supine to Sit: Mod assist, Verbal cues (x2) Sit to Supine: Unable to assess (Pt up in chair with call light and spouse present. RN notified.) Other: HOB elevated, use of rail. Cues for log roll technique. Assist for trunk control and LE management. Transfers Sit to Stand: Max assist, Verbal cues, Visual cues, Tactile cues (x2) Stand to Sit: Max assist, Verbal cues, Visual cues, Tactile cues (x2) Bed to Chair: Max assist, Verbal cues (x2) Other: Patient stood from elevated bed height to RW with Max x2. VVT cues for safety with hand placement. Increase posterior lean noted upon standing, cues and assist to correct and maintian midline.Patient stood at walker ~1 minute x2 focusing on improved standing tolerance and balance. Min x2 for balance. Gait Base of Support: Wide Pattern: Decreased beryl, R Decreased heel strike, L Decreased heel strike, R Decreased foot clearance, L Decreased foot clearance Gait Assistance: Max assist (x2) Assistive Device: Rolling walker Gait Distance: 2' to chair Limiting Factors to Gait: Fatigue, Weakness, Decreased safety, Cognition/difficulty following directions Other: Patient unsteady, short shuffling steps. Cues for sequencing and safety with walker. Assist for safety, balance, and walker management. Balance Sitting Balance: Static: Fair (Fair+) Sitting Balance: Dynamic: Fair Standing Balance: Static: Poor Standing Balance: Dynamic: Poor Other: Patient sat up at EOB ~15 minutes total to prepare for transfer and ADL focusing on improvedactivity tolerance. SBA for balance, no loss of balance noted. Activity Tolerance Endurance: Tolerates >30 minutes activity with rest breaks Other: Patient verbalized fear of falling. Education provided on safety with mobility. Encouragement needed and cues for proper breathing technique and safety. Plan Physical Therapy Care Plan Physical Therapy Care Plan (Active) Template: PT - Physical Therapy Problem: Activity Tolerance Dates: Start: 04/23/25 Disciplines: PT Goal: Tolerate > 30 minutes of activity WITH rest breaks Dates: Start: 04/23/25 Expected End: 06/04/25 Description: To improve overall strength and endurance for functional mobility. Disciplines: PT Outcomes Date/Time User Outcome 04/25/25 114Mily Johnson PTA Progressing Problem: Bed Mobility Dates: Start: 04/23/25 Disciplines: PT Goal: Patient will perform bed mobility with Moderate Assist Dates: Start: 04/23/25 Expected End: 06/04/25 Description: Goal Description: Disciplines: PT Outcomes Date/Time User Outcome 04/25/25 114Mily Johnson PTA Progressing Problem: Gait Dates: Start: 04/23/25 Disciplines: PT Goal: Patient will perform gait with Minimum Assist Dates: Start: 04/23/25 Expected End: 06/04/25 Description: With__RW__,__20__feet Goal Description: Disciplines: PT Outcomes Date/Time User Outcome 04/25/25 114Mily Johnson PTA Progressing Problem: Sitting Balance Dates: Start: 04/23/25 Disciplines: PT Goal: Improve balance to good Dates: Start: 04/23/25 Expected End: 06/04/25 Description: To reduce fall risk while sitting EOB Disciplines: PT Outcomes Date/Time User Outcome 04/25/25 Any Johnson PTA Progressing Problem: Standing Balance Dates: Start: 04/23/25 Disciplines: PT Goal: Improve balance to fair Dates: Start: 04/23/25 Expected End: 06/04/25 Description: With use of AD to reduce fall risk during ambulation Disciplines: PT Outcomes Date/Time User Outcome 04/25/25 Any Johnson PTA Progressing Problem: Strength Dates: Start: 04/23/25 Disciplines: PT Goal: Improve strength Dates: Start: 04/23/25 Expected End: 06/04/25 Description: Pt will complete 15 reps AROM BLE exercises to facilitate increased independence with transfers Disciplines: PT Problem: Transfers Dates: Start: 04/23/25 Disciplines: PT Goal: Patient will perform transfers with Minimum Assist Dates: Start: 04/23/25 Expected End: 06/04/25 Description: Goal Description: Disciplines: PT Outcomes Date/Time User Outcome 04/25/25 Any Johnson PTA Progressing Physical Therapy Care Plan (Resolved) There are no resolved problems. Principal Problem: Altered mental status Cosigned by Nir Lomeli PT at 04/26/2025 7:01 AM EDT Associated attestation - Nir Lomeli PT - 04/26/2025 7:01 AM EDT I have reviewed and agree with this note and education documentation for this visit. [facility]06-20-2025 Plan of care note* Plan of Care - Fe Marin RN - 04/24/2025 10:57 PM EDT Problem: Pain Goal: Patient goal is pain score less than 4, able to rest, and participant in treatment plan as appropriate Description: INTERVENTIONS: 1. Encourage patient or legal client relations representative to report early pain and ask for pain medicine when needed 2. Assess pain using appropriate pain scale and include the scale used when documenting 3. Administer analgesics based on type and severity of pain and evaluate response within appropriate time frame 4. Implement non-pharmacological measures as appropriate and evaluate response 5. Consider cultural and social influences on pain and pain management 6. Notify LIP if interventions ineffective or patient reports new pain 7. Monitor vital signs including pulse ox, end-tidal CO2 based on pain intervention 8. Reassess pain per policy 9. Teach patient or legal client relations representative interventions for comforting Outcome: Progressing Note: Evaluation of progress towards goal: Patient's pain assessed using numerical scale 0-10. Nonpharmacological and phamacological measures used to manage pain as ordered. Will continue to assess and monitor as necessary Problem: Safety Goal: Patient will be injury free during hospitalization Description: INTERVENTIONS: 1. Assess patient's risk for falls and implement fall prevention plan of care per policy 2. Provide and maintain a safe environment 3. Proper use of double Identifiers 4. Medication administration using the 5 rights 5. Hand hygiene 6. Specimens are labeled at the bedside 7. Instruct patient/ patient client relations representative about use of safety devices 8. Include patient/ patient client relations representative in decisions related to safety Outcome: Progressing Note: Evaluation of progress towards goal: No events reported during shift. Bed is locked and in lowest position with side rails up x2, call light and personal items are within reach, hourly roundingcompleted, non skid socks maintained. Problem: Infection Goal: Absence of infection during hospitalization Description: INTERVENTIONS 1. Assess and monitor for signs and symptoms of infection. 2. Monitor lab/diagnostic results. 3. Monitor all insertion sites i.e., indwelling lines, tubes and drains. 4. Monitor endotracheal (as able) and nasal secretions for changes in amount and color. 5. Administer medications as ordered. 6. Instruct and encourage patient and family to use good hand hygiene technique. 7. Identify and instruct patient/patient client relations representative in use of appropriate isolation precautionsfor identified infection/symptoms. 8. Provide and discuss with patient/patient client relations representative on educational MDRO sheet. 9. Encourage and monitor nutritional status daily and consult golf club head inspector and adjuster if indicated. 10. Implement neutropenic guidelines as needed. Outcome: Progressing Note: Evaluation of progress towards goal: Handwashing and standard precautions maintained, patientremains free of signs and symptoms of infection, patient is afebrile, IV insertion site monitored. Will continue to monitor for signs and symptoms of infection. Problem: Knowledge Deficit Goal: Patient/patient client relations representative demonstrates understanding of disease process, treatment plan,medications, and discharge instructions Description: INTERVENTIONS 1. Complete learning assessment and assess knowledge base 2. Provide teaching at level of understanding 3. Provide teaching via preferred learning method(s) Outcome: Progressing Note: Evaluation of progress towards goal: Patient states understanding of plan of care, medications, and discharge plans at this time. Will continue to monitor and educate as necessary [facility]06-20-2025 Plan of care note* Plan of Care - Uri Valenzuela RN - 04/24/2025 5:37 PM EDT Problem: Safety Goal: Patient will be injury free during hospitalization Description: INTERVENTIONS: 1. Assess patient's risk for falls and implement fall prevention plan of care per policy 2. Provide and maintain a safe environment 3. Proper use of double Identifiers 4. Medication administration using the 5 rights 5. Hand hygiene 6. Specimens are labeled at the bedside 7. Instruct patient/ patient client relations representative about use of safety devices 8. Include patient/ patient client relations representative in decisions related to safety Outcome: Progressing Note: Evaluation of progress towards goal: Lap Layer assessed that patient has been provided and maintained a safe environment. Medication administration using the 5 rights. Proper use of double identifiers. Problem: Infection Goal: Absence of infection during hospitalization Description: INTERVENTIONS 1. Assess and monitor for signs and symptoms of infection. 2. Monitor lab/diagnostic results. 3. Monitor all insertion sites i.e., indwelling lines, tubes and drains. 4. Monitor endotracheal (as able) and nasal secretions for changes in amount and color. 5. Administer medications as ordered. 6. Instruct and encourage patient and family to use good hand hygiene technique. 7. Identify and instruct patient/patient client relations representative in use of appropriate isolation precautionsfor identified infection/symptoms. 8. Provide and discuss with patient/patient client relations representative on educational MDRO sheet. 9. Encourage and monitor nutritional status daily and consult golf club head inspector and adjuster if indicated. 10. Implement neutropenic guidelines as needed. Outcome: Progressing Note: Evaluation of progress towards goal: Lap Layer has been assessed and monitored for signs and symptoms of infection. Administered medications as ordered. Monitored all insertion sites. Problem: Knowledge Deficit Goal: Patient/patient client relations representative demonstrates understanding of disease process, treatment plan,medications, and discharge instructions Description: INTERVENTIONS 1. Complete learning assessment and assess knowledge base 2. Provide teaching at level of understanding 3. Provide teaching via preferred learning method(s) Outcome: Progressing Note: Evaluation of progress towards goal: Lap Layer has assessed that patient has been provided teaching at level of understanding. Provided teaching via preferred learning methods. Completed learning assessment and assessed knowledge base. Problem: Discharge Planning Goal: Discharge to post-acute care, other facility, or home with appropriate resources Description: Patient's goal is: INTERVENTIONS 1. Conduct assessment to determine patient/family and health care team treatment goals, and need for post-acute services based on payer coverage, community resources, and patient preferences, and barriers to discharge 2. Coordinate with Social work, Care Navigation, and Utilization Review to arrange appropriate level of services according to patient's needs based on patient preference and payer coverage in collaboration with the physician and health care team 3. Address psychosocial, clinical, and financial barriers to discharge as identified in assessment in conjunction with the patient/family and health care team 4. Consult appropriate ancillary services (i.e.. PT/OT/ST, etc) as needed 5. Communicate with and update the patient/family, physician, and health care team regarding progress on the discharge plan 6. Identify discharge learning needs (meds, wound care, etc). 7. Arrange for needed discharge transportation as appropriate Outcome: Progressing Note: Evaluation of progress towards goal: Lap Layer assessed the patient for the following. Identify discharge learning needs. Arrange for needed discharge transportation as appropriate. Coordinate with social work and care navigation to arrange appropriate level of services according to patient's needs based on patient preference. Problem: Urinary Incontinence Goal: Perineal skin integrity is maintained or improved Description: INTERVENTIONS 1. Assess genitourinary system, perineal skin, labs (urinalysis), and history of incontinence to include past management, aggravating, and alleviating factors 2. Keep skin clean and dry 3. Apply skin protectant 4. Develop skin care regimen 5. Provide privacy when changing patients incontinence device to maintain their dignity 6. Consider placing an indwelling catheter 7. Collaborate with interdisciplinary team and initiate plans and interventions as needed Outcome: Progressing Note: Evaluation of progress towards goal: Lap Layer assessed the patient for the following. Keep skinclean and dry. Assess perineal skin. Maintain external catheter. Problem: Moderate - High Risk Fall Score Description: Disla Fall Score of =/> 25 or indicated by [facility] Assessment Goal: Patient should be free from fall Description: Interventions: 1. [place] to environment 2. Hourly rounds addressing the 4 P's (Pain, Positioning, Possessions, Potty) 3. Clear area of hazards (spills, clutter, electrical cords, unnecessary equipment) 4. Place equipment (bed & TV controls, call light, phone, urinal) within reach 5. Encourage patient to wear glasses and hearing aides as appropriate 6. Maintain bed in lowest position 7. Lock wheels on bed/wheelchair 8. Provide adequate lighting, including night light 9. Assess need for additional bedding, food/fluids, pain med's prior to sleep/routinely 10. Provide gripper slippers or personal non-skid footwear 11. Teach patient and patient client relations representative to maintain environment for safety and engage in all aspects of fall prevention program 12. Remind patient to call for help before getting out of bed 13. Initiate bed/chair/exit alarms supportive devices as appropriate, (chair wedge, no-skid floor mat, raised edge mattress, hip protectors) 14. Locate patient bed assignment for optimal visualization 15. Evaluate and identify Safe Patient Handling Equipment needs 16. Provide supervision when out of bed or chair 17. Utilize gait belt as needed to assist with ambulation 18. Place adaptive equipment (cane, walker) within reach 19. Request patient client relations representative bring adaptive equipment/mobility aids from home or obtain and provide as needed 20. Consult pharmacy regarding effects of med's affecting mobility, cognition, and alternatives 21. Obtain physician order for PT if risk factors associated with mobility are present 22. Obtain physician order for OT as appropriate 23. Utilize diversional activities 24. Educate patient and patient client relations representative how to maintain a safe environment during visitationtimes (notify nurse prior to leaving bedside) 25. Consider appropriateness of medical or non-medical lab director 26. Set up voiding schedule as appropriate (every 2 hours) Outcome: Progressing Note: Evaluation of progress towards goal: Lap Layer has been assessed in the following. [place] to environment, hourly rounds addressing the 4 P's (Pain, Positioning, Possessions, Potty). Maintain bed in lowest position. Remind patient to call for help before getting out of bed. Devario06-20-2025 Progress note* Discharge Planning Note - Rhea Dueñas - 04/24/2025 12:56 PM EDT DISCHARGE PLANNING NOTE Prior auth submitted to: [facility] Medicare Via: Av[employer] On behalf of : [facility] P# [phone]; F#[phone] via efax Ref# [id number] Devario06-20-2025 Progress note* Discharge Planning Note - Ricky Mclaughlin RN - 04/24/2025 12:26 PM EDT Ongoing Assessment for Discharge Needs Reviewed discharge milestones and patient needs related to discharge plan. Current estimated discharge date of Apr 25, 2025 has been reviewed by treatment team. Per RN during discharge transition rounds, barriers to discharge are: video swallow pending. Discharge Plan: SNF- [facility] [place]- Confirmed with patient and spouse of discharging to SNF- [facility]. Tasked [facility] to start Pre-cert. Await pre- cert approval. Newspaper Publisher will continue to follow for any discharge needs. - RICKY MCLAUGHLIN RN 04/24/25 12:44 PM Ongoing Assessment for Discharge Needs Flowsheet Row Most Recent Value Referral To Community Referrals / Resources Provided Denies needs Services Requested Patient expects to be discharged to: SNF vs Home with [facility] Does the patient wish to have family/friend/caregiver involved in their discharge planning? Yes Discharge Disposition SNF Facility/Service Name [facility] SNF Name [facility] SN[facility] Accepted? Yes Does the patient need discharge transportation arranged? Yes 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 Arranged Ambulance Devario06-20-2025 Progress note* PT/OT/STAFFING ASSOCIATE - Ramya Sheppard CCC- STAFFING ASSOCIATE - 04/24/2025 10:02 AM EDT Speech Therapy Videofluoroscopic Swallow Study Evaluation and Treatment Note Discharge Recommendations for Safe Patient Transition STAFFING ASSOCIATE Post Discharge Therapy Recommendations: Continue ST services Recommendations Diet Level: Regular Liquid Level: Level 0 Thin (NO STRAWS) Compensatory Strategies: Small sips/bites, One sip/bite at a time, No straws, Follow aspiration precautions Supervision/Positioning: Patient at 90 degress for all PO intake (including medication), Patient toremain upright 15 minutes after meals Medications: In applesauce/puree Impressions Oral Phase: Mild Pharyngeal Phase: Mild Functional Oral Intake Scale: Total PO intake. No restrictions Plan Frequency: 1-2days/week Duration: until discharge Treatments/Modalities: Safety strategies Need for skilled Speech Language Pathology Services to address deficits in feeding/swallowing due to a status decline resulting from AMS. Pt educated on purpose of exam, contrast administration, and procedural techniques prior to initiation of exam. Diagnostic therapy completed following exam. Pt educated on diet recommendations, plan of care, and encouraged to use safety strategies in order to maintain safe PO intake. Prognosis Services: Skilled STAFFING ASSOCIATE services to address above deficits Prognosis/Potential: Good Considerations: Previous level of function Assessment Baseline Assessment Allergies Marked As Reviewed: Complete Consistencies Tested Views: Lateral position Level 0 Thin: Spoon, Cup, Straw Level 4 Pureed: Spoon Level 6 Soft & Bite-Sized: Spoon Regular Tested: Bite Modified Barium Swallow Impairment Profile (MBSImP) Oral Impairment: Yes Component 1: Lip Closure: no labial escape Component 2: Tongue Control During Bolus Hold: escape to lateral buccal cavity/floor of mouth Component 3: Bolus Preparation/Mastication: disorganized chewing/mashing with solid pieces of bolusunchewed Component 4: Bolus Transport/Lingual Motion: delayed initiation of tongue motion Component 5: Oral Residue: trace residue lining oral structures Component 6: Initiation of Pharyngeal Swallow: bolus head in pyriforms Pharyngeal Impairment: Yes Component 7: Soft Palate Elevation: no bolus between soft palate/posterior pharyngeal wall Component 8: Laryngeal Elevation: partial superior movement of thyroid cartilage/partial approximation of arytenoids to epiglottic petiole Component 9: Anterior Hyoid Excursion: partial anterior movement Component 10: Epiglottic Movement: partial inversion Component 11: Laryngeal Vestibular Closure - Height of the Swallow: incomplete, narrow column of contrast/air in laryngeal vestibule Component 12: Pharyngeal Stripping Wave: present - diminished Component 13: Pharyngeal Contraction (A/P view only): could not be determined due to logistical reasons not related to physiologic impairment Component 14: Pharyngoesophageal Segment Opening: partial distension/partial duration, partial obstruction of flow Component 15: Tongue Base Retraction: trace column of contrast/air between tongue base and posterior pharyngeal wall Component 16: Pharyngeal Residue: trace residue within or on pharyngeal structures MBSImP Overall Impression Scores Oral Impairment Total: 8 Pharyngeal Impairment Total: 8 Penetration/Aspiration Scale Penetration/Aspiration Scale Performed: Yes Level 0 Thin: Contrast entered the airway, contacted the vocal folds, and was not ejected from the airway, Contrast did not enter the airway Level 4 Pureed: Contrast did not enter the airway Level 6 Soft & Bite-Sized: Contrast did not enter the airway Regular: Contrast did not enter the airway Pain Assessment Pain Assessment: No/denies pain Plan Diagnosis Code Swallowing: R13.12 Dysphagia, oropharyngeal phase Speech Therapy Care Plan Speech Therapy Care Plan (Active) Template: ST - Dysphagia Problem: Swallowing Dates: Start: 04/23/25 Disciplines: STAFFING ASSOCIATE Goal: LTG: Patient will maintain adequate nutrition/ hydration with optimum safety and efficiency of swallowing function of oral intake without overt signs/symptoms of aspiration for the highest appropriate diet level Dates: Start: 04/23/25 Expected End: 05/28/25 Disciplines: STAFFING ASSOCIATE Outcomes Date/Time User Outcome 04/24/25 08LAUREN Aden Progressing 04/23/25 1115 LAUREN Gaxiola Progressing Goal: STG: Patient will tolerate therapeutic feeding trials of advanced textures with 90% accuracy with minimal cueing Dates: Start: 04/23/25 Expected End: 05/28/25 Disciplines: STAFFING ASSOCIATE Outcomes Date/Time User Outcome 04/24/25 08LAUREN Aden Progressing 04/23/25 1115 LAUREN Gaxiola Progressing Speech Therapy Care Plan (Resolved) There are no resolved problems. Principal Problem: Altered mental status [facility] [id number] Progress note* PT/OT/STAFFING ASSOCIATE - LAUREN Gaxiola - 04/24/2025 8:47 AM EDT Speech Therapy Dysphagia Treatment Note Assessment: Current Diet Tolerance: NPO Progress: improving Pain Assessment Pain Assessment: No/denies pain Recommendations Diet: Level 4 pureed diet, no liquids (until VFSS) Discharge: Continued ST Services Precautions Aspiration Plan: Plan of Care: continue with current plan of care Continue with Current Diet: yes Diet: Level 4 Pureed Liquids: No liquids Safety Strategies: medications in applesauce Subjective Setting: bedside Arrival Status: lethargic Mental Status: confused/disoriented Therapy Tolerance: fair Change in Medical Status: no Received Recent Medications: no Objective NMES: No Pt lethargic yet cooperative. Ok to complete VFSS to determine least restrictive diet. RN notified. Diet Trials: Level 0 Thin and Level 4 Pureed Outcome: s/s aspiration present coughing noted with trials of thin water per straw Plan Speech Therapy Care Plan Speech Therapy Care Plan (Active) Template: ST - Dysphagia Problem: Swallowing Dates: Start: 04/23/25 Disciplines: STAFFING ASSOCIATE Goal: LTG: Patient will maintain adequate nutrition/ hydration with optimum safety and efficiency of swallowing function of oral intake without overt signs/symptoms of aspiration for the highest appropriate diet level Dates: Start: 04/23/25 Expected End: 05/28/25 Disciplines: STAFFING ASSOCIATE Outcomes Date/Time User Outcome 04/24/25 0847 LAUREN Gaxiola Progressing 04/23/25 1115 LAUREN Gaxiola Progressing Goal: STG: Patient will tolerate therapeutic feeding trials of advanced textures with 90% accuracy with minimal cueing Dates: Start: 04/23/25 Expected End: 05/28/25 Disciplines: STAFFING ASSOCIATE Outcomes Date/Time User Outcome 04/24/25 08LAUREN Aden Progressing 04/23/25 1115 LAUREN Gaxiola Progressing Speech Therapy Care Plan (Resolved) There are no resolved problems. Principal Problem: Altered mental [facility] [id number] Plan of care note* Plan of Care - Fe Marin RN - 04/23/2025 10:45 PM EDT Problem: Pain Goal: Patient goal is pain score less than 4, able to rest, and participant in treatment plan as appropriate Description: INTERVENTIONS: 1. Encourage patient or legal client relations representative to report early pain and ask for pain medicine when needed 2. Assess pain using appropriate pain scale and include the scale used when documenting 3. Administer analgesics based on type and severity of pain and evaluate response within appropriate time frame 4. Implement non-pharmacological measures as appropriate and evaluate response 5. Consider cultural and social influences on pain and pain management 6. Notify LIP if interventions ineffective or patient reports new pain 7. Monitor vital signs including pulse ox, end-tidal CO2 based on pain intervention 8. Reassess pain per policy 9. Teach patient or legal client relations representative interventions for comforting Outcome: Progressing Note: Evaluation of progress towards goal: Patient's pain assessed using numerical scale 0-10. Nonpharmacological and phamacological measures used to manage pain as ordered. Will continue to assess and monitor as necessary Problem: Safety Goal: Patient will be injury free during hospitalization Description: INTERVENTIONS: 1. Assess patient's risk for falls and implement fall prevention plan of care per policy 2. Provide and maintain a safe environment 3. Proper use of double Identifiers 4. Medication administration using the 5 rights 5. Hand hygiene 6. Specimens are labeled at the bedside 7. Instruct patient/ patient client relations representative about use of safety devices 8. Include patient/ patient client relations representative in decisions related to safety Outcome: Progressing Note: Evaluation of progress towards goal: No events reported during shift. Bed is locked and in lowest position with side rails up x2, call light and personal items are within reach, hourly roundingcompleted, non skid socks maintained. Problem: Infection Goal: Absence of infection during hospitalization Description: INTERVENTIONS 1. Assess and monitor for signs and symptoms of infection. 2. Monitor lab/diagnostic results. 3. Monitor all insertion sites i.e., indwelling lines, tubes and drains. 4. Monitor endotracheal (as able) and nasal secretions for changes in amount and color. 5. Administer medications as ordered. 6. Instruct and encourage patient and family to use good hand hygiene technique. 7. Identify and instruct patient/patient client relations representative in use of appropriate isolation precautionsfor identified infection/symptoms. 8. Provide and discuss with patient/patient client relations representative on educational MDRO sheet. 9. Encourage and monitor nutritional status daily and consult golf club head inspector and adjuster if indicated. 10. Implement neutropenic guidelines as needed. Outcome: Progressing Note: Evaluation of progress towards goal: Handwashing and standard precautions maintained, patientremains free of signs and symptoms of infection, patient is afebrile, IV insertion site monitored. Will continue to monitor for signs and symptoms of infection. Problem: Knowledge Deficit Goal: Patient/patient client relations representative demonstrates understanding of disease process, treatment plan,medications, and discharge instructions Description: INTERVENTIONS 1. Complete learning assessment and assess knowledge base 2. Provide teaching at level of understanding 3. Provide teaching via preferred learning method(s) Outcome: Progressing Note: Evaluation of progress towards goal: Patient states understanding of plan of care, medications, and discharge plans at this time. Will continue to monitor and educate as necessary [employer] [id number] Progress note* Discharge Planning Note - Ricky Mclaughlin RN - 04/23/2025 5:21 PM EDT Images from the original note were not included. Initial Assessment Lap Layer met with patient's spouse, Ellie, introduced self, and explained role. Patient's spouse educated on safe discharge plan. Pt admitted 04/22/2025 with Altered mental status [R41.82] per chart review. Consults: Neurology Discharge Barriers per Daily Transition Rounds and chart review: LTME day 11/09, IVF, PT/OT evaluation, Urinalysis, possible MRI spine, Swallow Evaluation. Past Medical History: Diagnosis Date Arthritis Coronary artery disease stent placed approx 1999 Hyperlipidemia Hypertension Neuropathy bilateral lower extremity due to back surgery Urine frequency Visual impairment Prior to admission patient was living with spouse/significant other and partial assistance. Medicalequipment patient used prior to admission includes: Raised/Elevated Toilet Seat, Walker - Rollator,Walker - Standard, and Motorized scooter, walk-in shower. Patient denies need for transportation/ food/ prescription medication assistance resources. PCP: DOROTHY HALL DO Pharmacy:[facility] [place] and [facility] PCP and pharmacy confirmed with patient. CN offered to assist with follow up appointment arrangements; Spouse declines, stating an appointment is scheduled for next /Sun. DOROTHY HALL DO added to Follow Up Providers for Summary of Care communication. Per patient's spouse self-report: Drug use: denies Smoking: denies ETOH Use: denies Current discharge plan is: SNF vs Home w/C Services Requested: Services Requested Patient expects to be discharged to:: SNF vs Home with [facility] Does the patient wish to have family/friend/caregiver involved in their discharge planning?: Yes Discharge Disposition: Home with home health services, SNF Facility/Service Name: [facility] SNF Name: [facility] [place] [facility] Accepted?: Yes Does the patient need discharge transportation arranged?: No Goals: Goals (pt-stated) Evaluation of progress towards goal: safe discharge pending clinical progress Patient is retired and lives with [facility] from [facility] [place]. Patient does not drived/t neuropathy, so spouse provides transportation. Patient has grandchildren available for some support but spouse states there is less help available during the day d/t family working. Tasked [facility] referrals to [facility] and return referral to [facility]. Both able to accept when patient medically ready. Will continue to follow as plan of care develops. CN discussed benefits and importance of medication compliance and follow ups. Please feel free to reach out for any discharge planning questions. - RICKY MCLAUGHLIN RN 04/23/25 5:21 PM Initial Assessment Flowsheet Row Most Recent Value Patient Information Initial Pre-Hospitalization Assessment Completed? Completed Primary Caregiver Spouse Support System Spouse/Significant Other, Family Members Discharge Planning Living Arrangements Spouse/significant other Assistance Needed ADL Type of Residence Private residence Private Residence 2 story Can patient reside on one level? Yes Residence Accessibility Steps into home Number of Steps 4 Home Care Services Yes Type of Home Care Services Home PT, Nurse visit Community Referrals / Resources Provided Denies needs Stressors Income Information Income Information Retired/Pension/Social Security IP Hunger/Food Insecurity Screening Within the past 12 months we worried whether our food would run out before we got money to buy more. Never True Within the past 12 months the food we bought just didn't last and we didn't have money to get more.Never True Hunger Screening Complete? Yes Pt. Eligible for Food / Voucher No Caregiver/Family Member Caregiver/Family Member Spouse Caregiver/Family Member Involved with Current Plan of Care Yes Caregiver/Family Member in Agreement with Current Plan of Care Yes Caregiver/Support System Limitations Caregiver/Support Systems Limitations (Check All That Apply) Caregiver Limitations Caregiver/Support System Limitations Physical Limitations [Spouse is able to assist patient with standing but with patient recent decline at home, she stated home care services were unable to get patient up- HHC called EMT] Patient/Caregiver Goals Patient/Caregiver Goals Home with Home Care, Assisted Care Skilled [facility] Skilled Care (Short Term) Community Provider Referral Services Requested Patient expects to be discharged to: SNF vs Home with HHC Does the patient wish to have family/friend/caregiver involved in their discharge planning? Yes Discharge Disposition Home with home health services, SNF Facility/Service Name [facility] SNF Name [facility] Accepted? Yes Does the patient need discharge transportation arranged? No Devario06-19-2025 Progress note* PT/OT/STAFFING ASSOCIATE - Verito Ordaz, PT - 04/23/2025 3:31 PM EDT Physical Therapy Evaluation Discharge Recommendations for Safe Patient Transition Discharge Recommendations: Post acute - moderate Post Acute Moderate Rehab Needs: Recommend moderate intensity rehab, Tolerate 1- 2 hrs of therapy 3-5 days/wk, Subacute or chronic functional impairment Current Impairments Informing Therapy Recommendation: Ambulation status/safety, Cognition, Fall risk, Endurance level Therapy Plan Need for skilled Physical Therapy to address deficits in functional mobility due to a status decline resulting from hospital admission 04/22/25 as transfer from [facility] with generalized weakness and hallucinations. Dx: Encephalopathy of unknown etiology EEG: generalized background slowing MRI L spine: no evidence of infection Starting seroquel Pt had L2-5 decompression with fusion and durotomy in February 2025 after which he developed metabolicencephalopathy and UTI and d/c to SNF for 6 weeks. Pt was home a few days prior to this admission DX: AMS Past Medical History: Diagnosis Date Arthritis Coronary artery disease stent placed approx 1999 Hyperlipidemia Hypertension Neuropathy bilateral lower extremity due to back surgery Urine frequency Visual impairment Past Surgical History: Procedure Laterality Date BACK SURGERY CARDIAC SURGERY stents CATARACT EXTRACTION HERNIA REPAIR REPLACEMENT TOTAL JOINT KNEE Right 02/14/2022 Performed by Perry Garay Jr., DO at [facility] 6 Clicks: Basic Mobility Turning from your back to your side while in a flat bed without using bed rails?: Total Moving from lying on your back to sitting on side of flat bed without using bed rails?: Total Moving to and from bed to a chair (including w/c)?: Total Standing up from a chair using your arms (e.g. w/c or bedside chair)?: Total To walk in hospital room?: Total Climbing 3-5 steps with a railing?: Total Scoring 6 Clicks: Basic Mobility Raw Score: 6 CMS G Code Modifier: CN PT Treatment/Interventions: Functional transfer training, LE strengthening/ROM, Endurance training,Patient/family training, Equipment eval/education, Balance, Gait training, Bed mobility, Functionalactivities PT Frequency: 4-5days/week PT Duration: LOS Assessment Patient Assessment Therapy Problem List: Decreased balance, Decreased endurance, Decreased mobility, Decreased safe judgement during ADL, Decreased LE strength Patient Response to Treatment: Tolerated evaluation without adverse reaction Mood/Affect: Anxious Rehab Prognosis: Good, With continued PT status post acute discharge Visit RN Communication: Yes Medical Record Reviewed: Yes PT Type of Visit: Evaluation Precautions Activity: early mobility: pass, ok per Grecia RN for PT eval Equipment: gait belt, nic stedy, maxi matt repositioning sling Telemetry/Patrol Police Lieutenant: Yes Oxygen Used: room air Other: (S) high fall risk, significant anxiety/panic attacks with mobility, 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, B AFOs Pain Assessment Pain Assessment: 0-10 Pain Score: (pt unable to provide # for pain rating due to AMS but c/o back pain with any movement) Pain Intervention(s): Repositioned, Environmental changes, Distraction, Emotional support, Therapeutic presence Response to Interventions: Quiet (sleeping and snoring upon completion of eval) Home Living Type of Home: House Home Layout: Two level, Bed/bath upstairs (full bath on main floor) Stairs to Enter: 4 Hand Rails: Bilateral Stairs in Home: FF Hand Rails in Home: Bilateral Bathroom Shower/Tub: Walk-in shower Bathroom Toilet: Standard Bathroom Equipment: Commode, Grab bars in shower, Shower chair (has BSC over standard toilet) Home Equipment: 4 Wheeled walker, Rolling walker, Electric scooter (B AFO) Other : Spouse provided home information due to pt's AMS. Prior Function Lives With: Spouse (spouse is able to offer limited physical assistance at baseline) Receives Help From: Family (local grandson with limited availability) Other: Per spouse, pt fell last Sunday upon return home from SNF, however, grandson was reportedly able to pick pt up from floor. Spouse reports that pt had been able to walk short distances in the home with 4WW but regularly used scooter for mobiltiy outside home at baseline. ADL / IADL Hand Dominance: Right Hearing / Speech / Vision Hearing: Within Functional Limits, No hearing aid Speech: Garbled, Delayed responses Current Vision: Wears glasses for distance only Cognition Arousal/Alertness: Delayed responses to stimuli (pt asleep upon therapist's entry to room and dozedoff immediately upon returning to bed at end of eval) Attention Span: Difficulty dividing attention, Difficulty attending to directions Memory: Decreased short term memory, Decreased recall of recent events, Decreased shelter memory,Decreased recall of precautions Orientation Level: Oriented to person, Disoriented to place, Disoriented to time, Disoriented to situation (oriented to year but stated that month is December and pt stated that he was in [place] today.) Following Commands: Follows one step commands with repetition, Follows one step commands with increased time Safety Judgment: Decreased awareness of need for assistance, Decreased awareness of need for safety Awareness of Errors: Assistance required to correct errors made, Assistance required to identify errors made, Decreased awareness of errors Insight of Deficits: Decreased awareness of deficits Problem Solving: Assistance required to identify errors made, Assistance required to generate solutions, Assistance required to implement solutions Interfering Components: Processing speed, Working memory, Attention to detail, Attention - sustained, Attention - selective, Other (comment) (significant anxiety and hyperventilating during mobility assessment) Other: Pt was intermittently garbled and slurred. Pt with considerable difficulty following cues attimes and attending to task at hand. When asked where pt is today, pt stated, Over there : and when question was repeated, pt stated, At your parents house Sensation Overall Sensation Status: Consistent with premorbid status (per spouse, chronic PN BLE and wears B AFOS at baseline) Bed Mobility Rolling: Mod assist, Right, Left, Visual cues, Verbal cues, Tactile cues Supine to Sit: Max assist (+2) Sit to Supine: Max assist (+2) Other: Pt required max verbal cues for all phases of bed mobility as well as assist at trunk and BLE to complete. Pt required frequent repetition of verbal commands due to dozing off readily when notcued. Once seated at EOB, pt immediatly closed his eyes and required verbal cues to keep eyes open Transfers Sit to Stand: Mod assist, Max assist (+2) Stand to Sit: Mod assist, Max assist (+2) Other: Pt completed ~ 6 sit<>stand transfers from elevated bed height with use of nic stedy due to intermittent lethargy and impulsivity. Pt require fluctuating levels of assist between mod-max A+2 depending on current level of anxiety. Pt initially stood upright in stedy and was able to support himself until paddles were lowered for pt to sit and pt promptly panicked and was unable to regain full standing posture for safe repositioning of paddles for pt to then sit down on bed. After max cueing and encouragement to stand upright and shift his weight, pt was finally able to clear stedypaddles to sit EOB. After lengthy seated rest break at EOB (10 minutes) pt was able to stand readily in nic stedy but panicked again when paddles were lowered for pt to sit on them. Max cues for pt to stand upright for removal of paddles in order for pt to sit down on EOB. Gait Other: unsafe to attempt Balance Sitting Balance: Static: Fair Sitting Balance: Dynamic: Fair ((-)) Standing Balance: Static: Poor Standing Balance: Dynamic: (EMANI) Other: (Pt able to sit EOB ~10 mintues with BUE support and close CGA and cues for pt to remain upright to prevent posterior LOB. Pt stood x6 trials in nic stedy for ~15 seconds at a time.) RUE Assessment: (see OT eval) LUE Assessment: (see OT eval) RLE Assessment: (pt unable to follow MMT cues and winced/moaned with any movement of LE.) LLE Assessment: (pt unable to follow MMT cues and winced/moaned with any movement of LE.) Activity Tolerance Endurance: Tolerates >30 minutes activity with rest breaks Other: RR up to 35 during STS d/t anxiety/hyperventilating, frequent cues needed for PLB/deescalation. SpO2 WNL Plan Physical Therapy Care Plan Physical Therapy Care Plan (Active) Template: PT - Physical Therapy Problem: Activity Tolerance Dates: Start: 04/23/25 Disciplines: PT Goal: Tolerate > 30 minutes of activity WITH rest breaks Dates: Start: 04/23/25 Expected End: 06/04/25 Description: To improve overall strength and endurance for functional mobility. Disciplines: PT Problem: Bed Mobility Dates: Start: 04/23/25 Disciplines: PT Goal: Patient will perform bed mobility with Moderate Assist Dates: Start: 04/23/25 Expected End: 06/04/25 Description: Goal Description: Disciplines: PT Problem: Gait Dates: Start: 04/23/25 Disciplines: PT Goal: Patient will perform gait with Minimum Assist Dates: Start: 04/23/25 Expected End: 06/04/25 Description: With__RW__,__20__feet Goal Description: Disciplines: PT Problem: Sitting Balance Dates: Start: 04/23/25 Disciplines: PT Goal: Improve balance to good Dates: Start: 04/23/25 Expected End: 06/04/25 Description: To reduce fall risk while sitting EOB Disciplines: PT Problem: Standing Balance Dates: Start: 04/23/25 Disciplines: PT Goal: Improve balance to fair Dates: Start: 04/23/25 Expected End: 06/04/25 Description: With use of AD to reduce fall risk during ambulation Disciplines: PT Problem: Strength Dates: Start: 04/23/25 Disciplines: PT Goal: Improve strength Dates: Start: 04/23/25 Expected End: 06/04/25 Description: Pt will complete 15 reps AROM BLE exercises to facilitate increased independence with transfers Disciplines: PT Problem: Transfers Dates: Start: 04/23/25 Disciplines: PT Goal: Patient will perform transfers with Minimum Assist Dates: Start: 04/23/25 Expected End: 06/04/25 Description: Goal Description: Disciplines: PT Physical Therapy Care Plan (Resolved) There are no resolved problems. Principal Problem: Altered mental status [facility] [id number] Progress note* PT/OT/STAFFING ASSOCIATE - DOMINICK Moreno/John - 04/23/2025 3:20 PM EDT Occupational Therapy Evaluation Discharge Recommendations for Safe Patient Transition Discharge Recommendations: Post acute - moderate Post Acute Moderate Rehab Needs: Recommend moderate intensity rehab, Tolerate 1- 2 hrs of therapy 3-5 days/wk, Subacute or chronic functional impairment Current Impairments Informing Therapy Recommendation: Ambulation status/safety, Cognition, Fall risk, ADL status, Communication needs, Endurance level 6 Clicks: Daily Activity Putting on and taking off regular lower body clothing?: Total Bathing (including washing, rinsing, drying)?: A lot Toileting, which includes using toilet, bedpan or urinal?: Total Putting on and taking off regular upper body clothing?: A lot Taking care of personal grooming such as brushing teeth?: A lot Eating meals?: A lot Scoring Daily Activity Raw Score: 10 CMS G Code Modifier: CL Therapy Plan Need for skilled Occupational Therapy to address deficits in ADL independence and functional mobility due to a status decline resulting from hospitalization. Pt is 79 y/o male admitted 04/22 as transfer from [facility] with generalized weakness and hallucinations. Dx: Encephalopathy of unknown etiology EEG: generalized background slowing MRI L spine: no evidence of infection Starting seroquel Pt had L2-5 decompression with fusion and durotomy in February 2025 after which he developed metabolicencephalopathy and UTI and d/c to SNF for 6 weeks. Pt was home a few days prior to this admission Past Medical History: Diagnosis Date Arthritis Coronary artery disease stent placed approx 1999 Hyperlipidemia Hypertension Neuropathy bilateral lower extremity due to back surgery Urine frequency Visual impairment Past Surgical History: Procedure Laterality Date BACK SURGERY CARDIAC SURGERY stents CATARACT EXTRACTION HERNIA REPAIR REPLACEMENT TOTAL JOINT KNEE Right 02/14/2022 Performed by Perry Garay Jr., DO at [facility] OT Treatment/Interventions: Functional transfer training, ADL retraining, UE strengthening/ROM, Cognitive reorientation, Endurance training, Equipment eval/education, Patient/family training, Balance, Bed mobility, Gait training, Compensatory technique education, Functional activities OT Frequency: 4-5days/week OT Duration: LOS Assessment Patient Assessment Therapy Problem List: Decreased ADL status, Decreased balance, Decreased cognition, Decreased endurance, Decreased high-level ADLs, Decreased safe judgement during ADL, Decreased mobility, Decreased self-care trans, Decreased LE strength, Decreased UE strength, Decreased sensation Patient Response to Treatment: Tolerated evaluation without adverse reaction Mood/Affect: Anxious Rehab Prognosis: Good, With continued OT status post acute discharge Visit RN Communication: Yes Medical Record Reviewed: Yes OT Type of Visit: Evaluation Precautions Activity: early mobility-pass Equipment: gait belt, nic stedy, bed alarm, repositioning sling Telemetry/[employer] Lieutenant: Yes Oxygen Used: room air Other: high fall risk, anxiety/panic attack with STS training, h/o L2-5 fusion 02/2025, wears bilat AFOs /2 PN, AMS/hallucinating Pain Assessment Pain Assessment: 0-10 Pain Score: (unable to rate formallly d/t AMS but c/o back pain with most activity) Pain Intervention(s): Repositioned, Environmental changes, Distraction, Emotional support, Therapeutic presence Response to Interventions: Quiet (dozing off at exit) Home Living Type of Home: House Home Layout: Two level, Bed/bath upstairs (there is a full bath on the 1st floor if needed) Stairs to Enter: 4 Hand Rails: Bilateral Stairs in Home: FF Hand Rails in Home: Bilateral Bathroom Shower/Tub: Walk-in shower Bathroom Toilet: Standard Bathroom Equipment: Commode, Grab bars in shower, Shower chair (has BSC over standard toilet) Home Equipment: 4 Wheeled walker, Rolling walker, Electric scooter (sleeps in regular flat bed) Other : providing home info/PLOF as pt is altered. She reports pt was home from SNF for a few days before this readmission and had 1 fall when he got there requiring his grandson to come help him back up. Prior Function Lives With: Spouse ( is able to assist with IADL but cannot physically help pt with transfers.) Receives Help From: Family (reports several local grandsons she can call to come help if needed) Level of Mobility: Needs assistance with ADLs or functional transfers or gait Other: Since being home from SNF pt was MOD I with ADLs except LB dressing which was assistingwith d/t spinal precautions s/p back surgery in February. Reports he was amb with 4WW or RW in the home without assist. Reports using electric scooter outside. Homemaking Assistance: Needs assistance Other: Pt has not driven in 3 yrs d/t PN. Prior to February he was sharing IADLs with . Now total A IADL Vocational: Retired ADL / IADL Hand Dominance: Right Where Assessed: Supine, bed, Edge of bed Eating Assistance: Min assist Grooming Assistance: Mod assist Bathing/Showering Assistance: Max assist Toilet/Commode Assistance: Total assist UE Dressing Assistance: Mod assist LE Dressing Assistance: Total assist LE Dressing Deficit: Increased time to complete, Don/doff brief Footwear Assistance: Total assist Footwear Deficit: L sock, R sock, L shoe, R shoe, Orthotic/brace Other: Pt reported need to urinate once awakened. Pt assisted to sit EOB but could not successfullyuse urinal seated. Nic arreola attained to stand to urinate. Total A needed to don socks, shoes, andAFOs d/t back pain, weakness, and AMS. Upon standing pt became highly anxious about falling and asking to sit back on EOB. Difficulty removing stedy paddles to sit (see transfers). Pt reports no longer needing to urinate. Upon return to supine total A needed for donning brief ; pt rolled with mod Don assist. Hearing / Speech / Vision Hearing: Within Functional Limits, No hearing aid Speech: Garbled, Delayed responses Current Vision: Wears glasses for distance only Cognition Overall Cognitive Status: Exceptions to Within Functional Limits Arousal/Alertness: Delayed responses to stimuli (*asleep at entrance and abruptly falls asleep again once returned to supine') Attention Span: Difficulty dividing attention, Difficulty attending to directions Memory: Decreased short term memory, Decreased recall of recent events, Decreased shelter memory,Decreased recall of precautions Orientation Level: Oriented to person, Disoriented to place, Disoriented to time, Disoriented to situation (oriented to year, reports month is December. Reports he is at [place]) Following Commands: Follows one step commands with repetition, Follows one step commands with increased time Safety Judgment: Decreased awareness of need for assistance, Decreased awareness of need for safety Awareness of Errors: Assistance required to correct errors made, Assistance required to identify errors made, Decreased awareness of errors Insight of Deficits: Decreased awareness of deficits Problem Solving: Assistance required to identify errors made, Assistance required to generate solutions, Assistance required to implement solutions Interfering Components: Processing speed, Working memory, Attention to detail, Attention - sustained, Attention - selective, Other (comment) (significant anxiety) Other: Pt speech is garbled and at times irrelevant to question asked. When asked where pt is from,pt reports over there then later reports your parents house. Pt became extremely anxious and tachypneic with STS in nic stedy and stopped following commands. Pt leaning all his weight onto L stedy paddle and asking to sit back on the EOB because he will fall but was not standing to allow OT/PTto remove L paddle. Max use of deescalation needed to redirect pt and bring RR down. After a prolonged rest, pt desired to attempt a 2nd time, at which point the same sequence occurred in which pt became anxious and could not maintain full stand d/t panic. Sensation Overall Sensation Status: Consistent with premorbid status (PN severe from ankles down per . Wears AFOs BLE) Bed Mobility Rolling: Mod assist, Right, Left, Visual cues, Verbal cues, Tactile cues Supine to Sit: Max assist (x2) Sit to Supine: Max assist (x2) Other: Pt completed log roll to EOB with VVT cues/mod A d/t stiffness/pain/weakness. Max A x2 needed to elevate trunk and advance BLE over EOB. Pt denies dizziness. Max A x2 to return to supine end of session. Needs in reach at exit and bed alarm on Transfers Sit to Stand: Mod assist, Max assist (x2) Stand to Sit: Mod assist, Max assist (x2) Other: Pt completed approx 6 STS from elevated EOB to nic stedy d/t impulsivity and AMS. Pt required flucuating levels of assist between mod x2 and max x2 dependent on level of current anxiety. pt had initially stood upright well in stedy for paddle placement; upon placing paddles and cueing pt tosit pt became panicked and was certain he was falling, hyperventilating and not following cues. Significant difficulty removing L paddle from beneath buttock to allow pt to return to EOB as pt leaning heavily to L and not standing fully erect anymore. Pt c/o in pain and RR was 35. Eventually with deescalation pt was safely returned to EOB with max A x2. Inc time for transfer training d/t prolonged panic attack Gait Other: not appropriate Balance Balance Evaluation: Exceptions to Functional Limits Sitting Balance: Static: Fair Sitting Balance: Dynamic: Fair (-) Standing Balance: Static: Poor Other: EOB x >10 mins with BUE support and CGA/cues to correct posterior lean. Stood x6 trials for no > 15 sec at a time with min- max A to maintain dependent on level of anxiety and confusion at the time RUE Assessment: (generalized weakness) LUE Assessment: (generalized weakness) RLE Assessment: (see PT eval) LLE Assessment: (see PT eval) Activity Tolerance Endurance: Tolerates >30 minutes activity with rest breaks Other: RR up to 35 during STS d/t anxiety/hyperventilating, frequent cues needed for PLB/deescalation. SpO2 WNL Plan Occupational Therapy Care Plan Occupational Therapy Care Plan (Active) Template: OT - Occupational Therapy Problem: Activity Tolerance Dates: Start: 04/23/25 Disciplines: OT Goal: Tolerate > 30 minutes of activity WITH rest breaks Dates: Start: 04/23/25 Expected End: 05/22/25 Description: Goal Description: Disciplines: OT Problem: Bed Mobility Dates: Start: 04/23/25 Disciplines: OT Goal: Patient will perform bed mobility with Contact Guard Dates: Start: 04/23/25 Expected End: 05/22/25 Description: Goal Description: Disciplines: OT Problem: Cognition Dates: Start: 04/23/25 Disciplines: OT Goal: Improve cognition Dates: Start: 04/23/25 Expected End: 05/22/25 Description: Pt will demo improved safety awareness during tx sessions as evidenced by lack of needfor vc's for safety to increase independence in all functional activity. Disciplines: OT Problem: Functional Mobility Dates: Start: 04/23/25 Disciplines: OT Goal: Patient will perform functional mobility with Contact Guard Dates: Start: 04/23/25 Expected End: 05/22/25 Description: Goal Description: Disciplines: OT Problem: Other (Customize) Dates: Start: 04/23/25 Disciplines: OT Goal: Improve Dates: Start: 04/23/25 Expected End: 05/22/25 Description: Pt will demo setup level with all UB ADLs using AE prn to facilitate return to PLOF. Disciplines: OT Problem: Other (Customize) Dates: Start: 04/23/25 Disciplines: OT Goal: Improve Dates: Start: 04/23/25 Expected End: 05/22/25 Description: Pt will complete all LB ADLs with Min A level or better using AE prn to facilitate return to PLOF Disciplines: OT Problem: Sitting Balance Dates: Start: 04/23/25 Disciplines: OT Goal: Improve balance to good Dates: Start: 04/23/25 Expected End: 05/22/25 Description: Static Dynamic Disciplines: OT Problem: Standing Balance Dates: Start: 04/23/25 Disciplines: OT Goal: Improve balance to fair Dates: Start: 04/23/25 Expected End: 05/22/25 Description: Static Dynamic Disciplines: OT Problem: Strength Dates: Start: 04/23/25 Disciplines: OT Goal: Improve strength Dates: Start: 04/23/25 Expected End: 05/22/25 Description: Pt will demo good understanding of BUE strengthening HEP to increase endurance for functional transfers, mobility, and ADL with RW. Disciplines: OT Problem: Transfers Dates: Start: 04/23/25 Disciplines: OT Goal: Patient will perform transfers with Contact Guard Dates: Start: 04/23/25 Expected End: 05/22/25 Description: Goal Description: Disciplines: OT Occupational Therapy Care Plan (Resolved) There are no resolved problems. Principal Problem: Altered mental status [facility]06-19-2025 Progress note* Discharge Planning Note - Jaylene Hatfield - 04/23/2025 1:34 PM EDT DISCHARGE PLANNING NOTE Referral sent to [facility] in [place], [place] (P# ;F# ) [facility]06-19-2025 Progress note* PT/OT/STAFFING ASSOCIATE - Deidre Barraza CCC-STAFFING ASSOCIATE - 04/23/2025 11:15 AM EDT Speech Therapy Dysphagia Treatment Note Assessment: Current Diet Tolerance: NPO Progress: improving Pain Assessment Pain Assessment: No/denies pain Recommendations Diet: Level 4 pureed diet, no liquids (until VFSS) Discharge: Continued ST Services Precautions Aspiration Plan: Plan of Care: continue with current plan of care Continue with Current Diet: yes Diet: Level 4 Pureed Liquids: No liquids Safety Strategies: medications in applesauce Subjective Setting: bedside Arrival Status: awake Mental Status: confused/disoriented Therapy Tolerance: fair Change in Medical Status: no Received Recent Medications: no Pt underwent VFSS this AM. Pt became confused and combative and had difficulty participating in evaluation. It was recommended pt remain NPO d/t lack of participation. RN contacted ST to determine ifpt was able to have oral medications. Family present. Provided pt with trials of thin liquids and puree. Until VFSS is able to be complete, ok for level 4 pureed diet with no liquids and medications in puree or with small sips of water. RN notified. Objective NMES: No Diet Trials: Level 0 Thin and Level 4 Pureed Outcome: tolerated without s/s aspiration Plan Speech Therapy Care Plan Speech Therapy Care Plan (Active) Template: ST - Dysphagia Problem: Swallowing Dates: Start: 04/23/25 Disciplines: STAFFING ASSOCIATE Goal: LTG: Patient will maintain adequate nutrition/ hydration with optimum safety and efficiency of swallowing function of oral intake without overt signs/symptoms of aspiration for the highest appropriate diet level Dates: Start: 04/23/25 Expected End: 05/28/25 Disciplines: STAFFING ASSOCIATE Outcomes Date/Time User Outcome 04/23/25 1115 BAKARI GaxiolaSTAFFING ASSOCIATE Progressing Goal: STG: Patient will tolerate therapeutic feeding trials of advanced textures with 90% accuracy with minimal cueing Dates: Start: 04/23/25 Expected End: 05/28/25 Disciplines: STAFFING ASSOCIATE Outcomes Date/Time User Outcome 04/23/25 1115 LAUREN Gaxiola Progressing Speech Therapy Care Plan (Resolved) There are no resolved problems. Principal Problem: Altered mental status [facility]06-19-2025 Progress note* Discharge Planning Note - Krissy Mancia - 04/23/2025 10:58 AM EDT DISCHARGE PLANNING NOTE Referral to [facility] (P# ; F# ) [facility]06-19-2025 Plan of care note* Plan of Care - Mikie Mcleod MD - 04/23/2025 10:23 AM EDT Patient seen and examined. Admitted earlier today due to confusion. Patient is status post L2-L5 decompression with fusion durotomy on 02/24/2025. He subsequently developed a UTI on 03/06/2025. He was [place] [facility] before being discharged home. Reportedly at 1st upon returning home his mental status was at baseline and he was lucid. He developed confusion starting last Sunday. He was subsequently admitted to an outside hospital. Workup there was reportedly relatively unremarkable with MR brain in MR lumbar spine showing no acute abnormalities. He was not found to have any infection or other significant metabolic findings that would explain his confusion. After discussion with Neurology he was transferred to [facility]. Records are being obtained from [facility]. EEG per Neurology. Case was discussed with Neurology. Please see H and P from earlier today for full note. [facility] CenterClear Shape TechnologiesCleveland Clinic Marymount [id number] Progress note* PT/OT/STAFFING ASSOCIATE - Emma Perkins CCC- STAFFING ASSOCIATE - 04/23/2025 8:50 AM EDT Speech Therapy Videofluoroscopic Swallow Study Evaluation and Treatment Note Discharge Recommendations for Safe Patient Transition STAFFING ASSOCIATE Post Discharge Therapy Recommendations: Continue ST services Current Impairments Informing Therapy Recommendation: Swallowing NPO for now. Pt very confused, combative and would not participate in exam despite multiple attempts. Spit out barium. Will reevaluate at bedside when more appropriate to ensure pt will participate. Recommendations Diet Level: NPO Liquid Level: No liquids Alternate Means Of:: Nutrition, Hydration Referrals: VFSS (when able to participate) Impressions Oral Phase: Severe Pharyngeal Phase: (unable to assess) Functional Oral Intake Scale: No PO intake Pt educated on purpose of exam, contrast administration, and procedural techniques prior to initiation of exam. Pt educated on results of exam, NPO status, and plan of care following exam. Plan Frequency: 3-4days/week Duration: until discharge Treatments/Modalities: Thermal/tactile/gustatory Stimulation Need for skilled Speech Language Pathology Services to address deficits in feeding/swallowing due to a status decline resulting from AMS. 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 CT negative. MR negative. Neuro recommended EEG so pt was transferred to [place] [facility]. Speech consulted to assess swallow function in the setting of AMS. Prognosis Services: Skilled STAFFING ASSOCIATE services to address above deficits Prognosis/Potential: Fair Considerations: Age, Previous level of function, Participation level Assessment Baseline Assessment Prior BSSE/VFSS: na Additional Testing Results: Magnetic resonance imaging Setting Prior to Admission: Home Associated Problems: Mental status changes Respiratory Status: Room Air History of Intubation: No Behavior/Cognition: Alert, Agitated, Confused, Uncooperative Patient Positioning: Upright in bed Baseline Vocal Quality: Weak, Wet/gurgly Ability to Control Secretions: Yes Allergies Marked As Reviewed: Complete Consistencies Tested Views: Lateral position Level 0 Thin: Spoon, Cup Modified Barium Swallow Impairment Profile (MBSImP) Oral Impairment: Yes Component 1: Lip Closure: escape beyond mid-chin Component 2: Tongue Control During Bolus Hold: escape to lateral buccal cavity/floor of mouth Component 3: Bolus Preparation/Mastication: logistical reasons Component 4: Bolus Transport/Lingual Motion: could not be determined due to logistical reasons not related to physiologic impairment Component 5: Oral Residue: could not be determined due to logistical reasons not related to physiologic impairment Component 6: Initiation of Pharyngeal Swallow: could not be determined due to logistical reasons not related to physiologic impairment Pharyngeal Impairment: (unable to evaluate pharyngeal physiology d/t lack of pharyngeal swallow) MBSImP Overall Impression Scores Oral Impairment Total: 5 Penetration/Aspiration Scale Penetration/Aspiration Scale Performed: (unable to assess, no pharyngeal swallow) FLACC (Face, Legs, Activity, Crying, Consolability) Pain Rating: FLACC (Rest) - Face: Occasional grimace or frown, withdrawn, disinterested Pain Rating: FLACC (Rest) - Legs: Uneasy, restless, tense Pain Rating: FLACC (Rest) - Activity: Squirming, shifting back and forth, tense Pain Rating: FLACC (Rest) - Cry: Moans or whimpers, occasional complaint Pain Rating: FLACC (Rest) - Consolability: Difficult to console or comfort Score: FLACC (Rest): 6 Plan Diagnosis Code Swallowing: R13.12 Dysphagia, oropharyngeal phase Speech Therapy Care Plan Speech Therapy Care Plan (Active) Template: ST - Dysphagia Problem: Swallowing Dates: Start: 04/23/25 Disciplines: STAFFING ASSOCIATE Goal: LTG: Patient will maintain adequate nutrition/ hydration with optimum safety and efficiency of swallowing function of oral intake without overt signs/symptoms of aspiration for the highest appropriate diet level Dates: Start: 04/23/25 Expected End: 05/28/25 Disciplines: STAFFING ASSOCIATE Goal: STG: Patient will tolerate therapeutic feeding trials of advanced textures with 90% accuracy with minimal cueing Dates: Start: 04/23/25 Expected End: 05/28/25 Disciplines: STAFFING ASSOCIATE Speech Therapy Care Plan (Resolved) There are no resolved problems. Principal Problem: Altered mental status [facility] [employer] [id number] Consult note* Radha Melendez MD - 04/23/2025 12:32 AM EDTAssociated Order(s): IP CONSULT TO NEUROLOGY Images from the original note were not included. [facility] Neurology General Neurology Consultation Note Consult Neurology Service: [phone] Primary Team: Hospitalist Chief Complaint and Reason for Consultation: AMS, hallucination, seen by teleneurology History: Edvin Roland is a 79 y.o. year old R handed male for whom Neurology was consulted for chief complaint of AMS and hallucinations without known metabolic cause. History obtained per chart review and patient's , Eliza, at bedside. He had lumbar surgery 02/24/25 and did not receive opioids except for one time low dose morphine since he had mild delirium with opioids with prior back surgery. During that hospitalization he was having visual hallucinations (families running around, a pickup truck in a cornfield), restlessness, mum dalton/difficult to understand speech and altered mentation. He reportedly had CTH, MRIs of his brain and EEG which were unremarkable. He was started on Seroquel at that time. Eventually, he was foundto have UTI that was treated for 3 days with improvement in mentation. He was then discharged to SNF for rehab after 12 days in the hospital. His PCP then discontinued Seroquel. He had about 3-4 daysof being his normal self and doing well at SNF. He then had symptoms similar to the hospital. His sleep schedule was completely backwards. He then was discharged home from SNF on 04/16, whichhis thinks was too soon because she didn't think he had enough endurance to walk yet. He did well at home throughout the weekend, slept normally, ate well. He had one mechanical fall, but with assistance of his grandson was able to get back up and had no further falls. Come Sunday, he had reduced strength. Then Sunday working with home health, he could no longer stand up so he was taken to [facility]. He again had return of altered mentation. He was admitted. Workup completed thus far: CTH 04/20 no acute findings per report, MRI brain without contrast 04/21 no acute findings, chronic mild atrophy per report, CBC WNL, CMP with K+ 3.1, UA negative, TSH 1.51, folate 15.3, vitamin B12 670. He reportedly had MRI of his spine done prior to transfer, but no results of this image are available nor were told to him or his . Teleneurology recommended EEG be done which is reason for transfer since it may not have been read for several days at [place], also recommended Seroquel 25 mg hs, delirium precautions, ammonia, CRP, Lyme, ESR and vitamin D levels. 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 Social History: Social History Socioeconomic History Marital status: Spouse name: Not on file Number of children: Not on file Years of education: Not on file Highest education level: Not on file Occupational History Not on file Tobacco Use Smoking status: Former Types: Cigarettes Smokeless tobacco: Never Substance and Sexual Activity Alcohol use: Yes Comment: daily Drug use: Never Sexual activity: Not on file Other Topics Concern Not on file Social History Narrative Not on file Social Drivers of Health Financial Resource Strain: Not on file Food Insecurity: Not on file 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 Needs: Not on file Physical Activity: Not on file Stress: Not on file Social Connections: Not on file Interpersonal Safety: Not on file Housing Instability: Not on file Medications: Current Facility-Administered Medications: acetaminophen (TYLENOL) tablet 650 mg, 650 mg, oral, Q4H PRN, Florentino Tran MD alum-mag hydroxide-simeth (MAALOX) 200-200-20 mg/5 mL suspension 30 mL, 30 mL, oral, PCHSP, Florentino Tran MD dextrose (GLUTOSE) 40 % gel 15 g, 15 g, oral, PRN, Florentino Tran MD dextrose 5 % (D5W) infusion, 100 mL/hr, intravenous, Continuous PRN, Florentino Tran MD dextrose 50 % in water (D50W) 50% solution 25 mL, 25 mL, intravenous, PRN, Florentino Tran MD famotidine (PEPCID) tablet 20 mg, 20 mg, oral, Q12H, Florentino Tran MD glucagon HCL injection 1 mg, 1 mg, intramuscular, PRN, Florentino Tran MD heparin (porcine) injection 5,000 Units, 5,000 Units, subcutaneous, Q12H PATITO, Florentino Tran MD ondansetron (PF) (ZOFRAN) injection 4 mg, 4 mg, intravenous, Q4H PRN, Florentino Tran MD sennosides-docusate sodium (SENOKOT-S) 8.6-50 mg 1 tablet, 1 tablet, oral, Q12H PRN, Florentino Tran MD sodium chloride 0.9 % flush 3 mL, 3 mL, intravenous, PRN, Florentino Tran MD sodium chloride 0.9 % flush 3 mL, 3 mL, intravenous, Q12H PATITO, Florentino Tran MD sodium chloride 0.9 % flush bag, 25 mL, intravenous, PRN, Florentino Tran MD sodium chloride 0.9 % infusion, 20 mL/hr, intravenous, Continuous PRN, Florentino Tran MD sodium chloride 0.9 % infusion, 75 mL/hr, intravenous, Continuous, Florentino Tran MD Allergies: Allergies Allergen Reactions Oxycontin [Oxycodone] Not allergic but does not want this Complete Review of Systems: Unable to obtain due to mentation Physical Exam Vital Signs: Vitals: 04/22/25 2221 BP: 133/68 Pulse: 75 Resp: 19 Temp: 36.6 C (97.9 F) SpO2: 94% General: Normotensive, in no acute distress, restlessness Cardiac Examination: Heart: RRR Neurological Examination: Higher Mental Function: Orientated to self and ricardo; said he was in rehab, said year was 2021 and his age was 39. Able to say he quit smoking in 1983 (correct per ). Language mostly intact, but he does speak fast and low which is difficult to understand intermittently, some language out of context of conversation. He was responding to internal stimuli/hallucinations; he asked for water and was told they need to check swallowing function first, then he began to act out like he was drinking from his IV line. Ophthalmological Examination: Clear conjunctiva, no cataracts. Undilated ophthalmoscopic examination deferred for focused examination. Cranial Nerve Examination: II: Normal tracking, no evidence of hemianopia or other visual field defect. III, IV, & : EOM intact, no ptosis, no nystagmus seen. Pupils are equal and reactive to light. V: Facial sensation is intact. VII: no facial asymmetry, facial movement intact. VIII: hearing is normal. IX-X: Palate elevates in the midline. XI: Normal trapezius strength and/or movement. XII: Tongue movement is normal, position is midline and no fasciculations are observed. Tongue strength intact. Motor: 5/5 strength bilateral hand balance wheel screw hole driller, elbow flexion and extension, bilateral plantarflexion. 4-/5 bilateral hip flexion. 3/5 left foot dorsiflexion and 2/5 right dorsiflexion. Bulk and muscle tone are intact in BL upper and lower extremities. No rigidity or spasticity. No atrophy. Intermittent myoclonic jerks witnessed in mouth and hands. No dystonia. No postural or kinetic tremor noted. No fasciculation or myotonia noted. No evidence of pseudo bulbar paralysis; no sialorrhea, difficulties swallowing. Deep Tendon Reflexes: Right, Left: Biceps 3, 3 Brachioradialis 3, 3 Patellae 0 (prior knee replacement), 1 Achilles 0, 0 Plantar response was flexor bilaterally. No clonus or other pathological reflexes elicited. Sensory examination: Intact to light touch throughout. Romberg's test deferred for fall risk Cerebellar: Able to do [id number] bilaterally; some dysmetria right hand but corrects after several attempts and better understanding of command. Gait and station: Deferred due to weakness and fall risk. Pertinent Labs: Mentioned in HPI from OSH Imaging: Mentioned in HPI from OSH, no imaging to review, only reports. Assessment: Edvin Roland is a 79 yo male who has had fluctuating mentation, visual hallucinations, restlessness, sleep disruption and weakness since lumbar surgery in February with current infectious and metabolic workup unremarkable, MRI brain without contrast without acute findings who was transferred from [place] for EEG. Impression: Altered mentation with unknown etiology Plan: vEEG to assess for seizures as cause of mentation changes Started melatonin 5 mg nightly for sleep Recommend obtaining records of spinal imaging to assess for infection of surgical site Recommend thiamine supplement for 500 mg daily for 3 days, then 100 mg daily thereafter Delirium precautions: Recommend frequent orientation, avoiding narcotics and sedating medications, patient should try to stay awake during daytime, open blinds during the day time, and minimize sleepinterruption at night. Keep the room quiet and restful. If patient wears prescription glasses, wearglasses when applicable. It may help to play soft, relaxing music. Get lots of rest, at least 8 hours each night. Use a nightlight to help get around safely at night. Radha Melendez MD PGY-3 Neurology Resident [facility] 04/23/25 Staffed with: (Dr. Giraldo) This patient is being followed by the Neurology Resident service. Contact attending directly during these hours: Sunday to 7:30-8:30 A.M. to Sunday 12-1:00 p.m. Primary Neurology service: [phone] Consult neurology service: [phone] Resident Stroke Service: [phone] If the patient belongs to the Stroke HAYDEN service please contact the Stroke HAYDEN directly. Cosigned by Luna Giraldo MD at 04/23/2025 12:06 PM EDT Associated attestation - Luna Giraldo MD - 04/23/2025 12:06 PM EDT I reviewed the resident's note and discussed the case with the resident. This specific service willnot be billed. Additional findings/notes: [facility] Work Phone: [phone] 714-813306-19-2025 Consult note* Radha Melendez MD - 04/23/2025 12:32 AM EDTAssociated Order(s): IP CONSULT TO NEUROLOGY Images from the original note were not included. [facility] Neurology General Neurology Consultation Note Consult Neurology Service: [phone] Primary Team: Hospitalist Chief Complaint and Reason for Consultation: AMS, hallucination, seen by teleneurology History: Edvin Roland is a 79 y.o. year old R handed male for whom Neurology was consulted for chief complaint of AMS and hallucinations without known metabolic cause. History obtained per chart review and patient's , Eliza, at bedside. He had lumbar surgery 02/24/25 and did not receive opioids except for one time low dose morphine since he had mild delirium with opioids with prior back surgery. During that hospitalization he was having visual hallucinations (families running around, a pickup truck in a cornfield), restlessness, mum dalton/difficult to understand speech and altered mentation. He reportedly had CTH, MRIs of his brain and EEG which were unremarkable. He was started on Seroquel at that time. Eventually, he was foundto have UTI that was treated for 3 days with improvement in mentation. He was then discharged to SNF for rehab after 12 days in the hospital. His PCP then discontinued Seroquel. He had about 3-4 daysof being his normal self and doing well at SNF. He then had symptoms similar to the hospital. His sleep schedule was completely backwards. He then was discharged home from SNF on 04/16, whichhis thinks was too soon because she didn't think he had enough endurance to walk yet. He did well at home throughout the weekend, slept normally, ate well. He had one mechanical fall, but with assistance of his grandson was able to get back up and had no further falls. Come Sunday, he had reduced strength. Then Sunday working with home health, he could no longer stand up so he was taken to [facility]. He again had return of altered mentation. He was admitted. Workup completed thus far: CTH 04/20 no acute findings per report, MRI brain without contrast 04/21 no acute findings, chronic mild atrophy per report, CBC WNL, CMP with K+ 3.1, UA negative, TSH 1.51, folate 15.3, vitamin B12 670. He reportedly had MRI of his spine done prior to transfer, but no results of this image are available nor were told to him or his . Teleneurology recommended EEG be done which is reason for transfer since it may not have been read for several days at [place], also recommended Seroquel 25 mg hs, delirium precautions, ammonia, CRP, Lyme, ESR and vitamin D levels. 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 Social History: Social History Socioeconomic History Marital status: Spouse name: Not on file Number of children: Not on file Years of education: Not on file Highest education level: Not on file Occupational History Not on file Tobacco Use Smoking status: Former Types: Cigarettes Smokeless tobacco: Never Substance and Sexual Activity Alcohol use: Yes Comment: daily Drug use: Never Sexual activity: Not on file Other Topics Concern Not on file Social History Narrative Not on file Social Drivers of Health Financial Resource Strain: Not on file Food Insecurity: Not on file 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 Needs: Not on file Physical Activity: Not on file Stress: Not on file Social Connections: Not on file Interpersonal Safety: Not on file Housing Instability: Not on file Medications: Current Facility-Administered Medications: acetaminophen (TYLENOL) tablet 650 mg, 650 mg, oral, Q4H PRN, Florentino Tran MD alum-mag hydroxide-simeth (MAALOX) 200-200-20 mg/5 mL suspension 30 mL, 30 mL, oral, PCHSP, Florentino Tran MD dextrose (GLUTOSE) 40 % gel 15 g, 15 g, oral, PRN, Florentino Tran MD dextrose 5 % (D5W) infusion, 100 mL/hr, intravenous, Continuous PRN, Florentino Tran MD dextrose 50 % in water (D50W) 50% solution 25 mL, 25 mL, intravenous, PRN, Florentino Tran MD famotidine (PEPCID) tablet 20 mg, 20 mg, oral, Q12H, Florentino Tran MD glucagon HCL injection 1 mg, 1 mg, intramuscular, PRN, Florentino Tran MD heparin (porcine) injection 5,000 Units, 5,000 Units, subcutaneous, Q12H PATITO, Florentino Tran MD ondansetron (PF) (ZOFRAN) injection 4 mg, 4 mg, intravenous, Q4H PRN, Florentino Tran MD sennosides-docusate sodium (SENOKOT-S) 8.6-50 mg 1 tablet, 1 tablet, oral, Q12H PRN, Florentino Tran MD sodium chloride 0.9 % flush 3 mL, 3 mL, intravenous, PRN, Florentino Tran MD sodium chloride 0.9 % flush 3 mL, 3 mL, intravenous, Q12H PATITO, Florentino Tran MD sodium chloride 0.9 % flush bag, 25 mL, intravenous, PRN, Florentino Tran MD sodium chloride 0.9 % infusion, 20 mL/hr, intravenous, Continuous PRN, Florentino Tran MD sodium chloride 0.9 % infusion, 75 mL/hr, intravenous, Continuous, Florentino Tran MD Allergies: Allergies Allergen Reactions Oxycontin [Oxycodone] Not allergic but does not want this Complete Review of Systems: Unable to obtain due to mentation Physical Exam Vital Signs: Vitals: 04/22/25 2221 BP: 133/68 Pulse: 75 Resp: 19 Temp: 36.6 C (97.9 F) SpO2: 94% General: Normotensive, in no acute distress, restlessness Cardiac Examination: Heart: RRR Neurological Examination: Higher Mental Function: Orientated to self and ricardo; said he was in rehab, said year was 2021 and his age was 39. Able to say he quit smoking in 1983 (correct per ). Language mostly intact, but he does speak fast and low which is difficult to understand intermittently, some language out of context of conversation. He was responding to internal stimuli/hallucinations; he asked for water and was told they need to check swallowing function first, then he began to act out like he was drinking from his IV line. Ophthalmological Examination: Clear conjunctiva, no cataracts. Undilated ophthalmoscopic examination deferred for focused examination. Cranial Nerve Examination: II: Normal tracking, no evidence of hemianopia or other visual field defect. III, IV, & : EOM intact, no ptosis, no nystagmus seen. Pupils are equal and reactive to light. V: Facial sensation is intact. VII: no facial asymmetry, facial movement intact. VIII: hearing is normal. IX-X: Palate elevates in the midline. XI: Normal trapezius strength and/or movement. XII: Tongue movement is normal, position is midline and no fasciculations are observed. Tongue strength intact. Motor: 5/5 strength bilateral hand balance wheel screw hole driller, elbow flexion and extension, bilateral plantarflexion. 4-/5 bilateral hip flexion. 3/5 left foot dorsiflexion and 2/5 right dorsiflexion. Bulk and muscle tone are intact in BL upper and lower extremities. No rigidity or spasticity. No atrophy. Intermittent myoclonic jerks witnessed in mouth and hands. No dystonia. No postural or kinetic tremor noted. No fasciculation or myotonia noted. No evidence of pseudo bulbar paralysis; no sialorrhea, difficulties swallowing. Deep Tendon Reflexes: Right, Left: Biceps 3, 3 Brachioradialis 3, 3 Patellae 0 (prior knee replacement), 1 Achilles 0, 0 Plantar response was flexor bilaterally. No clonus or other pathological reflexes elicited. Sensory examination: Intact to light touch throughout. Romberg's test deferred for fall risk Cerebellar: Able to do [id number] bilaterally; some dysmetria right hand but corrects after several attempts and better understanding of command. Gait and station: Deferred due to weakness and fall risk. Pertinent Labs: Mentioned in HPI from OSH Imaging: Mentioned in HPI from OSH, no imaging to review, only reports. Assessment: Edvin Roland is a 79 yo male who has had fluctuating mentation, visual hallucinations, restlessness, sleep disruption and weakness since lumbar surgery in February with current infectious and metabolic workup unremarkable, MRI brain without contrast without acute findings who was transferred from [place] for EEG. Impression: Altered mentation with unknown etiology Plan: vEEG to assess for seizures as cause of mentation changes Started melatonin 5 mg nightly for sleep Recommend obtaining records of spinal imaging to assess for infection of surgical site Recommend thiamine supplement for 500 mg daily for 3 days, then 100 mg daily thereafter Delirium precautions: Recommend frequent orientation, avoiding narcotics and sedating medications, patient should try to stay awake during daytime, open blinds during the day time, and minimize sleepinterruption at night. Keep the room quiet and restful. If patient wears prescription glasses, wearglasses when applicable. It may help to play soft, relaxing music. Get lots of rest, at least 8 hours each night. Use a nightlight to help get around safely at night. Radha Melendez MD PGY-3 Neurology Resident [facility] 04/23/25 Staffed with: (Dr. Giraldo) This patient is being followed by the Neurology Resident service. Contact attending directly during these hours: Sunday to 7:30-8:30 A.M. to Sunday 12-1:00 p.m. Primary Neurology service: [phone] Consult neurology service: [phone] Resident Stroke Service: [phone] If the patient belongs to the Stroke HAYDEN service please contact the Stroke HAYDEN directly. Cosigned by Luna Giraldo MD at 04/23/2025 12:06 PM EDT Associated attestation - Luna Giraldo MD - 04/23/2025 12:06 PM EDT I reviewed the resident's note and discussed the case with the resident. This specific service willnot be billed. Additional findings/notes: [facility] History and physical note* Florentino Tran MD - 04/23/2025 12:15 AM EDT Images from the original note were not included. History and Physical PCP: DOROTHY HALL DO Chief Complaint: altered mental status Assessment/Plan: Multiple co morbidities. Stable. Active concerning issues Altered mental state/hallucination Neurology consulted, follow neurology Dysphagia NPO, IVF Video speech and swallow eval Physical deconditioning PT/OT Chronic back ground issues HTN Overactive bladder/incontinence Depression Consults: Neurology Abx: None Dispo: Home vs SNF Code: Full Barker cathter: None Supportive care Follow-up blood work ordered as appropriate Routine inpatient admission orders Clinical and lab monitoring Home medications reconciled with available information. Please review again. Constipation prophylaxis DVT prophylaxis: IPC cuffs. Heparin The plan has been discussed in detail to the full satisfaction of the patient/family. Patient/family has been encouraged to ask questions. Admission Med Rec: Done based on information available. Please review for any change. History of Present Illness: Edvin Roland is a 79 y.o. White or male. Patient is in altered mental state, awake, tries to talk but doesn't do any comprehensible conversation. is bed side and has provided the historical details. Patient had back surgery in [place] and post op developed metabolic encephalopathy, was found to have UTI which was treated. Patient stayed in [facility] for 12 days and after that was discharged to SNF where he stayed for 6 weeks. Per patient's altered mental status would be intermittent with lucid intervals. Patient had tele-neurology sessions and multiple neurology work up was done and It was speculated that unfamiliar environment was causing patient's mental status changes making the patient to have hallucinations, delirium, sleep dysregulations. Patient went from SNF to home. But his symptoms returned after initial few days at home. He was taken to [facility] ER and was seen by tele-neurology and has been transferred to [facility]. denies that patient had any fevers/chills, cough, nausea/vomiting, chest pain, SOB, headache, any dysuria/frequency, any diarrhea. , however, states that patient at times had choking when trying to swallow food. further states that patient has incontinence. Smoking: quit, Drinking: yes, Drugs: no Anticoagulants Hx: denies Cardiac stent Hx: in 2019 Neuro-stent/coil Hx: denies DAPT Hx: denies Use of home oxygen: No Pertinent Family Hx: None Sending ED Note: Teleneurology note: EKG: Imaging: CT Brain: ABx started at ER: No Review of Systems A comprehensive 10+ review of systems was explored and found negative except for those described inHPI. PMH: Past Medical History: Diagnosis Date Arthritis Coronary artery disease stent placed approx 1999 Hyperlipidemia Hypertension Neuropathy bilateral lower extremity due to back surgery Urine frequency Visual impairment PSH: Past Surgical History: Procedure Laterality Date BACK SURGERY CARDIAC SURGERY stents CATARACT EXTRACTION HERNIA REPAIR REPLACEMENT TOTAL JOINT KNEE Right 02/14/2022 Performed by Perry Garay Jr., DO at [facility] Allergies: Allergies Allergen Reactions Oxycontin [Oxycodone] Not allergic but does not want this Home Meds: Medications Prior to Admission Medication Sig Dispense Refill Last Dose/Taking allopurinoL (ZYLOPRIM) 300 mg tablet Take 1 tablet (300 mg total) by mouth in the morning. 04/22/2025 amLODIPine (NORVASC) 2.5 mg tablet Take 2 tablets (5 mg total) by mouth in the morning. Past Week ascorbic acid, vitamin C, (VITAMIN C) 1000 mg tablet Take 1 tablet (1,000 mg total) by mouth in themorning. Past Week aspirin 81 mg Take 1 tablet (81 mg total) by mouth in the morning and 1 tablet (81 mg total) beforebedtime. 28 tablet 0 Past Week aspirin 81 mg Take 1 tablet (81 mg total) by mouth in the morning and 1 tablet (81 mg total) beforebedtime. 60 tablet 0 04/22/2025 atorvastatin (LIPITOR) 40 mg tablet Take 1 tablet (40 mg total) by mouth in the morning. 04/21/2025 calcium carbonate-vitamin D3 (CALCIUM 500 + D) 500 mg(1,250mg) -200 units per tablet Take 1 tablet by mouth in the morning and 1 tablet in the evening. Take with meals. Past Week cyanocobalamin (vitamin B-12) 1000 MCG tablet Take 1 tablet (1,000 mcg total) by mouth in the morning. Past Week hydroCHLOROthiazide (HYDRODIURIL) 25 mg tablet Take 1 tablet (25 mg total) by mouth daily. Past Week LUTEIN-ZEAXANTHIN ORAL Take by mouth. Past Week mirabegron (MYRBETRIQ ORAL) Take by mouth. Past Week potassium chloride (KLOR-CON M) 20 MEQ CR tablet Take 1 tablet (20 mEq total) by mouth in the morning and 1 tablet (20 mEq total) before bedtime. 04/22/2025 Social History: Social History Socioeconomic History Marital status: Spouse name: Not on file Number of children: Not on file Years of education: Not on file Highest education level: Not on file Occupational History Not on file Tobacco Use Smoking status: Former Types: Cigarettes Smokeless tobacco: Never Substance and Sexual Activity Alcohol use: Yes Comment: daily Drug use: Never Sexual activity: Not on file Other Topics Concern Not on file Social History Narrative Not on file Social Drivers of Health Financial Resource Strain: Not on file Food Insecurity: Not on file 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 Needs: Not on file Physical Activity: Not on file Stress: Not on file Social Connections: Not on file Interpersonal Safety: Not on file Housing Instability: Not on file Family History: No family history on file. Objective chart reviewed, labs and meds noted. Vital signs in last 24 hours: Temp: [36.6 C (97.9 F)-37.1 C (98.7 F)] 37.1 C (98.7 F) Pulse: [75-77] 77 Resp: [19-22] 22 BP: (133-142)/(68-70) 142/70 SpO2: [94 %] 94 % O2 Device: None (Room air) O2 Flow Rate (L/min): [0 L/min] 0 L/min Physical Exam Vital Signs: Blood pressure 142/70, pulse 77, temperature 37.1 C (98.7 F), temperature source Oral,resp. rate 22, SpO2 94%. Respiratory Source: O2 Device: None (Room air) Admission Weight: General Appearance: Awake, not making eye contact, doesn't speak coherent, clothes soaked in urine Head: Normocephalic Eyes: Conjunctiva/corneas clear, both eyes Nose: Nares normal, no drainage Neck: Supple, no thyroid, no JVD Chest: Clear to auscultation bilaterally, respirations unlabored Heart: Regular rate and rhythm, S1 and S2 normal Abdomen: Soft, non-tender Extremities: No cyanosis or edema Pulses: 2+ and symmetric Skin: Skin color, texture, turgor normal Neurologic: CNII-XII intact, normal tone, sensation, limited exam Lab Review: Recent Results (from the past 48 hours) Basic Metabolic Panel Collection Time: 04/23/25 1:17 AM Result Value Ref Range SODIUM 143 134 - 146 mmol/L POTASSIUM 3.8 3.5 - 5.0 mmol/L CHLORIDE 108 98 - 109 mmol/L CARBON DIOXIDE 26 22 - 32 mmol/L ANION GAP 9 5 - 15 mmol/L BLOOD UREA NITROGEN 16 5 - 27 mg/dL CREATININE 0.62 0.60 - 1.30 mg/dL GLUCOSE 102 (H) 65 - 99 mg/dL CALCIUM 9.1 8.5 - 10.5 mg/dL EGFR Non-Race Dependent >90 >=60 ml/min/1.73sq.m CBC auto differential Collection Time: 04/23/25 1:17 AM Result Value Ref Range WBC 7.4 4 - 11 x10E9/L RBC Count 4.25 4.1 - 5.7 X10E12/L Hemoglobin 12.7 (L) 13 - 17 g/dL Hematocrit 37.9 (L) 39 - 50 % MCV 89 80 - 100 fL MCH 30.0 27 - 34 pg MCHC 33.6 32 - 36 g/dL RDW 14.6 11.5 - 15 % Platelet Count 269 150 - 450 X10E9/L MPV 9.2 7 - 12 fL No primary care provider on file. Total time spent was 60 minutes: Preparing to see the patient (e.g., review of tests) Obtaining and/or reviewing separately obtained history Performing a medically appropriate examination and/or evaluation Counseling and educating the patient/family/caregiver Ordering medications, tests, or procedures Documenting clinical information in the electronic or other health record Independently interpreting results (not separately reported) and communicating results to the patient/family/caregiver [facility] Work Phone: [phone] History and physical note* Florentino Tran MD - 04/23/2025 12:15 AM EDT Images from the original note were not included. History and Physical PCP: DOROTHY HALL DO Chief Complaint: altered mental status Assessment/Plan: Multiple co morbidities. Stable. Active concerning issues Altered mental state/hallucination Neurology consulted, follow neurology Dysphagia NPO, IVF Video speech and swallow eval Physical deconditioning PT/OT Chronic back ground issues HTN Overactive bladder/incontinence Depression Consults: Neurology Abx: None Dispo: Home vs SNF Code: Full Barker cathter: None Supportive care Follow-up blood work ordered as appropriate Routine inpatient admission orders Clinical and lab monitoring Home medications reconciled with available information. Please review again. Constipation prophylaxis DVT prophylaxis: IPC cuffs. Heparin The plan has been discussed in detail to the full satisfaction of the patient/family. Patient/family has been encouraged to ask questions. Admission Med Rec: Done based on information available. Please review for any change. History of Present Illness: Edvin Roland is a 79 y.o. White or male. Patient is in altered mental state, awake, tries to talk but doesn't do any comprehensible conversation. is bed side and has provided the historical details. Patient had back surgery in [place] and post op developed metabolic encephalopathy, was found to have UTI which was treated. Patient stayed in [facility] for 12 days and after that was discharged to SNF where he stayed for 6 weeks. Per patient's altered mental status would be intermittent with lucid intervals. Patient had tele-neurology sessions and multiple neurology work up was done and It was speculated that unfamiliar environment was causing patient's mental status changes making the patient to have hallucinations, delirium, sleep dysregulations. Patient went from SNF to home. But his symptoms returned after initial few days at home. He was taken to [facility] ER and was seen by tele-neurology and has been transferred to [facility]. denies that patient had any fevers/chills, cough, nausea/vomiting, chest pain, SOB, headache, any dysuria/frequency, any diarrhea. , however, states that patient at times had choking when trying to swallow food. further states that patient has incontinence. Smoking: quit, Drinking: yes, Drugs: no Anticoagulants Hx: denies Cardiac stent Hx: in 2019 Neuro-stent/coil Hx: denies DAPT Hx: denies Use of home oxygen: No Pertinent Family Hx: None Sending ED Note: Teleneurology note: EKG: Imaging: CT Brain: ABx started at ER: No Review of Systems A comprehensive 10+ review of systems was explored and found negative except for those described inHPI. PMH: Past Medical History: Diagnosis Date Arthritis Coronary artery disease stent placed approx 1999 Hyperlipidemia Hypertension Neuropathy bilateral lower extremity due to back surgery Urine frequency Visual impairment PSH: Past Surgical History: Procedure Laterality Date BACK SURGERY CARDIAC SURGERY stents CATARACT EXTRACTION HERNIA REPAIR REPLACEMENT TOTAL JOINT KNEE Right 02/14/2022 Performed by Perry Garay Jr., DO at [facility] Allergies: Allergies Allergen Reactions Oxycontin [Oxycodone] Not allergic but does not want this Home Meds: Medications Prior to Admission Medication Sig Dispense Refill Last Dose/Taking allopurinoL (ZYLOPRIM) 300 mg tablet Take 1 tablet (300 mg total) by mouth in the morning. 04/22/2025 amLODIPine (NORVASC) 2.5 mg tablet Take 2 tablets (5 mg total) by mouth in the morning. Past Week ascorbic acid, vitamin C, (VITAMIN C) 1000 mg tablet Take 1 tablet (1,000 mg total) by mouth in themorning. Past Week aspirin 81 mg Take 1 tablet (81 mg total) by mouth in the morning and 1 tablet (81 mg total) beforebedtime. 28 tablet 0 Past Week aspirin 81 mg Take 1 tablet (81 mg total) by mouth in the morning and 1 tablet (81 mg total) beforebedtime. 60 tablet 0 04/22/2025 atorvastatin (LIPITOR) 40 mg tablet Take 1 tablet (40 mg total) by mouth in the morning. 04/21/2025 calcium carbonate-vitamin D3 (CALCIUM 500 + D) 500 mg(1,250mg) -200 units per tablet Take 1 tablet by mouth in the morning and 1 tablet in the evening. Take with meals. Past Week cyanocobalamin (vitamin B-12) 1000 MCG tablet Take 1 tablet (1,000 mcg total) by mouth in the morning. Past Week hydroCHLOROthiazide (HYDRODIURIL) 25 mg tablet Take 1 tablet (25 mg total) by mouth daily. Past Week LUTEIN-ZEAXANTHIN ORAL Take by mouth. Past Week mirabegron (MYRBETRIQ ORAL) Take by mouth. Past Week potassium chloride (KLOR-CON M) 20 MEQ CR tablet Take 1 tablet (20 mEq total) by mouth in the morning and 1 tablet (20 mEq total) before bedtime. 04/22/2025 Social History: Social History Socioeconomic History Marital status: Spouse name: Not on file Number of children: Not on file Years of education: Not on file Highest education level: Not on file Occupational History Not on file Tobacco Use Smoking status: Former Types: Cigarettes Smokeless tobacco: Never Substance and Sexual Activity Alcohol use: Yes Comment: daily Drug use: Never Sexual activity: Not on file Other Topics Concern Not on file Social History Narrative Not on file Social Drivers of Health Financial Resource Strain: Not on file Food Insecurity: Not on file 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 Needs: Not on file Physical Activity: Not on file Stress: Not on file Social Connections: Not on file Interpersonal Safety: Not on file Housing Instability: Not on file Family History: No family history on file. Objective chart reviewed, labs and meds noted. Vital signs in last 24 hours: Temp: [36.6 C (97.9 F)-37.1 C (98.7 F)] 37.1 C (98.7 F) Pulse: [75-77] 77 Resp: [19-22] 22 BP: (133-142)/(68-70) 142/70 SpO2: [94 %] 94 % O2 Device: None (Room air) O2 Flow Rate (L/min): [0 L/min] 0 L/min Physical Exam Vital Signs: Blood pressure 142/70, pulse 77, temperature 37.1 C (98.7 F), temperature source Oral,resp. rate 22, SpO2 94%. Respiratory Source: O2 Device: None (Room air) Admission Weight: General Appearance: Awake, not making eye contact, doesn't speak coherent, clothes soaked in urine Head: Normocephalic Eyes: Conjunctiva/corneas clear, both eyes Nose: Nares normal, no drainage Neck: Supple, no thyroid, no JVD Chest: Clear to auscultation bilaterally, respirations unlabored Heart: Regular rate and rhythm, S1 and S2 normal Abdomen: Soft, non-tender Extremities: No cyanosis or edema Pulses: 2+ and symmetric Skin: Skin color, texture, turgor normal Neurologic: CNII-XII intact, normal tone, sensation, limited exam Lab Review: Recent Results (from the past 48 hours) Basic Metabolic Panel Collection Time: 04/23/25 1:17 AM Result Value Ref Range SODIUM 143 134 - 146 mmol/L POTASSIUM 3.8 3.5 - 5.0 mmol/L CHLORIDE 108 98 - 109 mmol/L CARBON DIOXIDE 26 22 - 32 mmol/L ANION GAP 9 5 - 15 mmol/L BLOOD UREA NITROGEN 16 5 - 27 mg/dL CREATININE 0.62 0.60 - 1.30 mg/dL GLUCOSE 102 (H) 65 - 99 mg/dL CALCIUM 9.1 8.5 - 10.5 mg/dL EGFR Non-Race Dependent >90 >=60 ml/min/1.73sq.m CBC auto differential Collection Time: 04/23/25 1:17 AM Result Value Ref Range WBC 7.4 4 - 11 x10E9/L RBC Count 4.25 4.1 - 5.7 X10E12/L Hemoglobin 12.7 (L) 13 - 17 g/dL Hematocrit 37.9 (L) 39 - 50 % MCV 89 80 - 100 fL MCH 30.0 27 - 34 pg MCHC 33.6 32 - 36 g/dL RDW 14.6 11.5 - 15 % Platelet Count 269 150 - 450 X10E9/L MPV 9.2 7 - 12 fL No primary care provider on file. Total time spent was 60 minutes: Preparing to see the patient (e.g., review of tests) Obtaining and/or reviewing separately obtained history Performing a medically appropriate examination and/or evaluation Counseling and educating the patient/family/caregiver Ordering medications, tests, or procedures Documenting clinical information in the electronic or other health record Independently interpreting results (not separately reported) and communicating results to the patient/family/caregiver documented in this encounterProMedica Health [id number] Plan of care note * Plan of Care - Fe Marin RN - 04/22/2025 11:55 PM EDT Problem: Pain Goal: Patient goal is pain score less than 4, able to rest, and participant in treatment plan as appropriate Description: INTERVENTIONS: 1. Encourage patient or legal client relations representative to report early pain and ask for pain medicine when needed 2. Assess pain using appropriate pain scale and include the scale used when documenting 3. Administer analgesics based on type and severity of pain and evaluate response within appropriate time frame 4. Implement non-pharmacological measures as appropriate and evaluate response 5. Consider cultural and social influences on pain and pain management 6. Notify LIP if interventions ineffective or patient reports new pain 7. Monitor vital signs including pulse ox, end-tidal CO2 based on pain intervention 8. Reassess pain per policy 9. Teach patient or legal client relations representative interventions for comforting Outcome: Progressing Note: Evaluation of progress towards goal: Patient's pain assessed using numerical scale 0-10. Nonpharmacological and phamacological measures used to manage pain as ordered. Will continue to assess and monitor as necessary Problem: Safety Goal: Patient will be injury free during hospitalization Description: INTERVENTIONS: 1. Assess patient's risk for falls and implement fall prevention plan of care per policy 2. Provide and maintain a safe environment 3. Proper use of double Identifiers 4. Medication administration using the 5 rights 5. Hand hygiene 6. Specimens are labeled at the bedside 7. Instruct patient/ patient client relations representative about use of safety devices 8. Include patient/ patient client relations representative in decisions related to safety Outcome: Progressing Note: Evaluation of progress towards goal: No events reported during shift. Bed is locked and in lowest position with side rails up x2, call light and personal items are within reach, hourly roundingcompleted, non skid socks maintained. Problem: Infection Goal: Absence of infection during hospitalization Description: INTERVENTIONS 1. Assess and monitor for signs and symptoms of infection. 2. Monitor lab/diagnostic results. 3. Monitor all insertion sites i.e., indwelling lines, tubes and drains. 4. Monitor endotracheal (as able) and nasal secretions for changes in amount and color. 5. Administer medications as ordered. 6. Instruct and encourage patient and family to use good hand hygiene technique. 7. Identify and instruct patient/patient client relations representative in use of appropriate isolation precautionsfor identified infection/symptoms. 8. Provide and discuss with patient/patient client relations representative on educational MDRO sheet. 9. Encourage and monitor nutritional status daily and consult golf club head inspector and adjuster if indicated. 10. Implement neutropenic guidelines as needed. Outcome: Progressing Note: Evaluation of progress towards goal: Handwashing and standard precautions maintained, patientremains free of signs and symptoms of infection, patient is afebrile, IV insertion site monitored. Will continue to monitor for signs and symptoms of infection. Problem: Knowledge Deficit Goal: Patient/patient client relations representative demonstrates understanding of disease process, treatment plan,medications, and discharge instructions Description: INTERVENTIONS 1. Complete learning assessment and assess knowledge base 2. Provide teaching at level of understanding 3. Provide teaching via preferred learning method(s) Outcome: Progressing Note: Evaluation of progress towards goal: Patient states understanding of plan of care, medications, and discharge plans at this time. Will continue to monitor and educate as necessary Problem: Potential for Compromised Skin Integrity Goal: Skin integrity is maintained or improved Description: Patient's goal is: INTERVENTIONS 1. Perform initial skin assessment on admission and as needed 2. Turn patient every 2 hours and PRN 3. Relieve pressure to bony prominences 4. Avoid shearing 5. Keep skin clean and dry 6. Alternate a full bath with partial baths for elderly 7. Apply lotion/moisturizer on skin 8. Monitor patient's hygiene practices 9. Float heels 10. Collaborate with interdisciplinary team and initiate plans and interventions as needed Outcome: Progressing Note: Evaluation of progress towards goal: Collaborate with interdisciplinary team and initiate plan and interventions as ordered al: Problem: Urinary Incontinence Goal: Perineal skin integrity is maintained or improved Description: INTERVENTIONS 1. Assess genitourinary system, perineal skin, labs (urinalysis), and history of incontinence to include past management, aggravating, and alleviating factors 2. Keep skin clean and dry 3. Apply skin protectant 4. Develop skin care regimen 5. Provide privacy when changing patients incontinence device to maintain their dignity 6. Consider placing an indwelling catheter 7. Collaborate with interdisciplinary team and initiate plans and interventions as needed Outcome: Progressing Note: Evaluation of progress towards goal: Keep skin clean and dry [facility] [id number] NoteAdmission Information Patient: Edvin Roland : 1945 Date of Admission: 02/24/2025 12:00:25 Date of Discharge: 03/08/2025 12:06:00 Code Status: Full resuscitation PCP: Dorothy Hall DO Consult: Bob DARNELL, Lisa Marie; Butch SHIPMAN, Christian Levine; Becky WALTERS, Denny Marie; Sarthak WALTERS, Eugenie; Miller WALTERS, Jorgito Palma; Remberto WALTERS, Hung Follow Up with Provider With When Contact Information Dr. Paez (Neurology) Within 1 month Additional Instructions: Call for followup appointment Dorothy Rafael In 0 days [address] [place] [address]- Business (1) Additional Instructions: [facility] Madeline WALTERS, [...] improved and patient was discharged [facility]. Discharge Time Spent with Patient: 35 min were spent with final examination of the patient, discussion of the hospital stay, instructions for continuing care to all relevant caregivers, and preparation of discharge records and prescriptions. Medications New Medications [facility]/pharmacy #[id number], [address], [place] [id number], [phone] QUEtiapine (SEROquel 25 mg oral tablet) 25 [...] 600 mg-62.5 mcg (2500 intl units) oral capsule)2 Capsules Oral (given by mouth) every day. [...] Request Patient Discharge Condition Stable [facility]charge Disposition [facility] Objective Physical Exam General: AAOx3 no acute distress pleasantly confused at times Eye: Normal conjunctiva. HENT: Normocephalic, moist oral mucosa, no scleral icterus. Neck: Supple, non-tender, no lymphadenopathy. Lungs: Clear to auscultation, no rales rhonch or wheeze Heart: (more content not included)...[facility]04-23-2025 NoteOT evaluation hold. Patient on active bedrest in AM. OT to see when able. Electronically signed by Meme Christensen 02/25/25 12:00 [facility]04-22-2025 Note Operative Report DATE OF PROCEDURE: 02/24/2025 [...] and battery removal. SURGEON: Anita Schmid MD COTTAGE MASTER: RAMONITA Quarles PA-C assisted throughout the procedure [...] dural tear, nerve root injury, nonunion, DVT/PE, DE, stroke, etc. All questions were answered. Informed consent was obtained. OPERATIVE PROCEDURE: The patient was taken to the operating room by the Anesthesiology Service and had satisfactory general anesthesia. A first- generation cephalosporin was given within 1 hour of [...] process of L2 and L3. Le[place]ell and microcuretteswere used to remove scar tissue adhered to [...] foraminotomies of the L2, L3, L4, L5 nerv e roots bilaterally. We then mobilized the right L4 nerve root over a large contained disc herniation. Hemostasis was achieved over the disc space. Variety of curettes and pituitary was used to remove the large containeddisc herniation. Once this was done, we palpated medially and there were no other loose fragments to be removed. There was excellent excursion of the right L4 nerve root both medially and laterally without tension. This thereby completed our microdiscectomy at L3- 4 on the right. A durotomy occurred along [...] determined by bony (more content not included)... [facility]04-21-2025 NoteChief Complaint Back pain History of Present Illness The patient is a 79-year-old male with complaints of constant low back pain. No radicular complaints but chronic neuropathy in the bilateral feet. Patient with a 8-12 month history of bilateral foot drops and wears AFO braces. He is status post L4-S1 PSF done with Dr. Ang Ordoñez. He then had a HW removal and L3-4 decompression in [address] [place] [address] Larry. He then had a SCS and battery done Aug 2024 that is no longer functioning. Current VAS score 6/10. Activities that aggravate the pain include standing, walking. He denies activities that help relieve the pain. Modifying factors include medication management, PT, lumbar injections and lumbar RFA. These have provided really no relief. PCP: Dorothy Hall, DO Review of Systems Constitutional: No [...] rt side (2015) Spine orthopedic surgery service (2017) Spine orthopedic surgery (2018) Knee replacement (2020) [...] MRI Lumbar Spine dated 01/12/2025 done at [place] Electronically signed by Christian Rae PA-C 02/23/25 21:27 [facility] 01-28-2025 History of Present illness Narrative* Marisol Connors MD - 01/28/2025 10:30 AM EDT Chief Complaint Patient presents with Pre-op Clearance Lumbar fusion-Dr. Mcdonald-Scheduled 02/24 Subjective Edvin Roland is a 79 y.o. male HPI [...] exam, discussion and plan. documented in this [facility] Work Phone: 1(912) 781-613003-26-2025 Instructions* Patient Instructions* Lora Torres LPN - 01/28/2025 10:30 AM [...] on dietary changes Provided instructions on exercise. Edvin Roland is clear for surgery from a cardiac standpoint 6 months documented in this [facility] Work Phone: 1(774) 466-722001-08-2025 History of Present illness Narrative* Jr. Perry Garay, - 11/12/2024 10:15 AM EST Images from the original note were not included. HISTORY OF PRESENT ILLNESS: EST PT Edvin Roland is an 79 y.o. @ male. [...] KNEE ; S/P HEP XRAYS, 05/02/24 @ [facility] NO MRI NO MDP / PREDNISONE NO [...] or asymmetric wear to the patellar button ortibial tray. There was no evidence of fracture [...] appointment with Dr. Mcdonald at the [facility] for orthopedic spine consult. We'll see him back in one year for his knee. Operative lower extremity was noted to be neurovascularly intact. Patient was able to motor feet toes and ankles in all anatomic planes bilaterally with 5 out of 5 strength. Operative knee's patellartracking was optimal and quad/ham strength was 5 [...] for requiring urgent evaluation. documented in this encounterWestern Missouri Medical CenterDupfhlrxlz09-29-9484 Evaluation + Plan note Extracted from: Title:chronic pain Author:Bert Huang DO Date:09/24/24 [...] will provide further education and contact the [employer] representatives for additional support. He rates his [...] the remote, we will follow-up with the [employer] ham for further education -Will schedule right [...] with any questions or concerns that arise. [facility] 11-20-2024 NoteConsultation Note Patient is presenting [...] will provide further education and contact the [employer] representatives for additionalsupport. He rates his back [...] the remote, we will follow-up with the [employer] ham for further education -Will schedule right [...] call with any questions or concerns that arise.[facility] AndersonComment on above:Result Comment: Electronically Signed By: Bert Huang DO\.br\Date and Time Signed: 09/24/24 09:48 [id number] Evaluation + Plan noteExtracted from: Title:Pain Managment [...] will work with the spinal cord stimulator client relations representative and follow-up in a few weeks for reevaluation. He would like to restart physical therapy. Restrictions were discussed. Showering and wound care was discussed. Follow-up as above mention. ZACARIAS score: 48%. Future Appointments Appointment Date:09/24/2024 08:45:00 AM Scheduled Provider:Bert Huang DO Location:FT.[facility] Appointment Type:Pain Management - Follow Up (FT) [facility] 10-23-2024 NoteConsultation Note Patient: EDVIN ROLAND Age: 78 years Sex: Male : [...] a reprogramming with the spinal cord stimulator client relations representative. He has some pain that he [...] q12hr, # 20 cap(s), Refills(s) 0, Pharmacy: [facility]/pharmacy #[id number], 193, cm, 08/19/24 7:28:00 EDT, Height/Length [...] list: All Problems Hypercholesterolemia / SNOMED CT 59328234 / Confirmed Hernia, inguinal, right / SNOMED CT 173632293 / Confirmed BPH with urinary obstruction / SNOMED CT 2984183944 / Confirmed Elevated PSA / SNOMED CT 1994941813 / Confirmed Impotence / SNOMED CT 4334255890 / Confirmed Urinary frequency / SNOMED CT 663324066 / Confirmed Nocturia / SNOMED CT 768701173 / Confirmed Weak urinary stream / SNOMED CT 840099773 / Confirmed Gross hematuria / SNOMED CT 950269569 / Confirmed Anticoagulated / SNOMED CT 873005283 / Confirmed Urge incontinence / SNOMED CT 240259784 / Confirmed Chronic prostatitis / SNOMED CT 42971220 / Confirmed Dysuria / SNOMED CT 54045623 / Confirmed Urinary retention / SNOMED CT 972944842 / Confirmed BMI 31.0-31.9,adult / SNOMED CT 537596003 / Confirmed Incomplete bladder emptying / SNOMED CT 126493748 / Confirmed Post-void dribbling / SNOMED CT 892310957 / Confirmed Incontinence without sensory awareness / SNOMED CT 6869451694 / Confirmed At risk for falls / SNOMED CT 865104313 / Possible ED (erectile dysfunction) / SNOMED CT 1841399587 / Confirmed Leaking of urine / SNOMED CT 6357788845 / Confirmed Urinary incontinence / SNOMED CT 8441322892 / Confirmed Prostate cancer screening / SNOMED CT 690700799 / Confirmed Resolved: Hypertension / SNOMED CT 7007908847 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 Incision is healing well. A new clean [...] done. He will (more content not included)... [facility] AndersonComment on above:Result Comment: Electronically Signed By: Sophie SHIPMAN, Stephenie\.br\Date and Time Signed: 08/27/24 11:19 EDT 08-19-2024 [...] analysis of neurostimulator Anesthesia: MAC Complications: None Outpatient Program Coordinator: grants assistant provided Implanted devices: -Neuroreceiver/pulse generator: [employer] wavewriter alpha 16 -Neuroelectrodes: two avista 50cm [...] the epidural space with confirmation using glass mqng-xx-uaddomcrzq syringe and lead was threaded at T11/12 [...] wound was irrigated with sterile saline. The [employer] clinical writer alpha 16 pulse generator kit was [...] pocket. Then with the help of the grants assistant both wounds were closed in a [...] 2024 10:38 EDT Correction to above: No engineering inspection assistant was utilized during this case. Closure was performed by myself. Extracted from: Title:ANES Pre-operative Note 2022 Author:Liliana Alcala CRNA. Date:08/19/24 Patient: EDVIN ROLAND Age: 78 years Sex: Male : [...] list: All Problems Anticoagulated / SNOMED CT 166505449 / Confirmed At risk for falls / SNOMED CT 592467241 / Possible BMI 31.0-31.9,adult / SNOMED CT 560282775 / Confirmed BPH with urinary obstruction / SNOMED CT 7242490655 / Confirmed Chronic prostatitis / SNOMED CT 59032493 / Confirmed Dysuria / SNOMED CT 06557244 / Confirmed ED (erectile dysfunction) / SNOMED CT 6976705463 / Confirmed Elevated PSA / SNOMED CT 5756893018 / Confirmed Gross hematuria / SNOMED CT 171359677 / Confirmed Hernia, inguinal, right / SNOMED CT 568937893 / Confirmed Hypercholesterolemia / SNOMED CT 19621779 / Confirmed Impotence / SNOMED CT 8849965543 / Confirmed Incomplete bladder emptying / SNOMED CT 031094514 / Confirmed Incontinence without sensory awareness / SNOMED CT 2387476782 / Confirmed Leaking of urine / SNOMED CT 7374180045 / Confirmed Nocturia / SNOMED CT 188756605 / Confirmed Post-void dribbling / SNOMED CT 989514671 / Confirmed Prostate cancer screening / SNOMED CT 793443289 / Confirmed Urge incontinence / SNOMED CT 035815266 / Confirmed Urinary frequency / SNOMED CT 442331662 / Confirmed Urinary incontinence / SNOMED CT 4926167975 / Confirmed Urinary retention / SNOMED CT 647509451 / Confirmed Weak urinary stream / SNOMED CT 325228072 / Confirmed Resolved: Hypertension / SNOMED CT 7704137386 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 Procedure history: Spinal Cord Stimulator Trial ([id number]) on 06/24/2024 at 78 Years. Comments: 07/02/2024 8:58 Marifer Alegre 60% relief Injection of sacroiliac joint using fluoroscopic guidance (4980401245) on 01/09/2024 at 78 Years. Comments: 01/25/2024 13:34 Azra Fitzgerald RN 90% relief for 4 hrs Radiofrequency ablation of nerve root of lumbar spine using fluoroscopic guidance (1776927070) on 10/08/2023 at 78 Years. Comments: 11/09/2023 11:23 Savannah Paredes RN Bilateral L3/4+L4/5- no relief Biliateral L3/4, L4/5 MBB (8432936371) on 09/04/2023 at 77 Years. Comments: 09/14/2023 7:53 Tomasa Abdullahi RN Bilateral L3/4, L4/5 MBB-80% relief for 1 day Bilateral L3/L4 L4/L5 MBB (2294109262) on 08/07/2023 at 77 Years. Comments: 08/28/2023 7:57 Sharee Jama RN BL L3/L4 L4/L5 MBB 85% Relief x 4 hours Caudal epidural ([id number]) on 05/29/2023 at 77 Years. Comments: 06/18/2023 10:04 Sharee Jama RN Caudal john 50% relief L3/4 Medial Branch Blocks ([id number]) on 05/01/2023 at 77 Years. Comments: 05/11/2023 9:48 AMEENA Garrett RN Savannah Ceballos bilateral 75% relief for 2 hours Injection of facet joint using fluoroscopic guidance ([id number]) on 03/12/2023 at 77 Years. Comments: 03/19/2023 9:18 EDT - Rigo JENNINGS, Myranda pt changed amt of relief to 80% x 4 hr. 03/19/2023 8:54 Myranda Butler RN L3/4 MBB- 50% relief x 4 hr Cysto/Botox 100 units ([id number]) on 05/11/2022 at 76 Years. Blepharoplasty (471004767) on 02/07/2021 at 75 Years. Cystourethroscopy with dilation of urethral stricture (438758713) on 12/02/2020 at 75 Years. Right eye cataract extraction and insertion of intraocular lens (4200011998) on 11/02/2020 at 75 Years. TURP - Transurethral resection of prostate (337707585) on 04/28/2020 at 74 Years. Cystourethroscopy with dilation of urethral stricture (514207974) on 12/08/2019 at 74 Years. back surgery on 10/16/2019 at 74 Years. Comments: 12/02/2019 9:22 JU - KeMarine 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3 Placement of stent in cardiac conduit (1968103191) on 06/16/2019 at 73 Years. inguinal hernia repair in 2018 at 72 Years. TURP - Transurethral resection of prostate (861882838) on 07/12/2016 at 70 Years. Cystoscopy ([id number]) on 06/23/2016 at 70 Years. Evolve laser of prostate ([id number]) on 03/14/2013 at 67 Years. Urodynamics (474766553) on 02/13/2013 at 67 Years. Back (248230817). Arthroscopy of knee joint (907387922). CE - Cataract extraction (1415347938). Release of trigger finger (671496096). Social History Social & Psychosocial Habits Alcohol 08/12/2024 Type: Liquor Frequency: 3-5 times per week 08/12/2024 Use: Current Frequency: Daily 08/12/2024 Use: Current Frequency: Daily Comment: 1-2 shot per day - 03/14/2024 09:48 - Robin JENNINGS, Tomasa Davidson Substance Abuse 08/12/2024isk Assessment: Denies Substance Abuse Tobacco 08/12/2024 Assessment: Denies Tobacco Use 08/12/2024 Tobacco Use: [...] adequate air exchange. Cardiovascular: Regular rhythm. Plan [place] [employer] Anesthesiologists (ASA) physical status classification: Class III. Anesthetic Preoperative Plan: Anesthesia General. Addendum by Oseas Alcala CRNA on August 19, 2024 7:42 EDT Change title of note to progress note Future Appointments Appointment Date:08/27/2024 11:15:00 AM Scheduled Provider:Stephenie Barrios PA-C Location:[facility] Appointment Type:Pain Management - Follow Up (FT) [facility] 10-15-2024 NoteProgress Note-Physician Patient: EDVIN ROLAND Age: 78 years Sex: Male : 1945 Associated Diagnoses: None Author: Liliana Alcala CRNA Postoperative Information Postoperative disposition: Postoperative disposition: Home. Optimetrix number: Optimetrix number [id number]. Anesthetic utilized: General. Health Status Allergies: Allergic [...] Blood Pressure 62 mm (more content not included)...[facility] AndersonComment on above:Result Comment: Electronically Signed By: Liliana Alcala CRNA\.br\Date and Time Signed: 08/19/24 10:25 [id number] Note Progress Note-Physician Patient: EDVIN ROLAND Age: 78 years Sex: Male : [...] list: All Problems Anticoagulated / SNOMED CT 052102453 / Confirmed At risk for falls / SNOMED CT 182902103 / Possible BMI 31.0-31.9,adult / SNOMED CT 754931981 / Confirmed BPH with urinary obstruction / SNOMED CT 6670719482 / Confirmed Chronic prostatitis / SNOMED CT 43433649 / Confirmed Dysuria / SNOMED CT 04874558 / Confirmed ED (erectile dysfunction) / SNOMED CT 5195057400 / Confirmed Elevated PSA / SNOMED CT 8556413866 / Confirmed Gross hematuria / SNOMED CT 030227202 / Confirmed Hernia, inguinal, right / SNOMED CT 060476132 / Confirmed Hypercholesterolemia / SNOMED CT 86225047 / Confirmed Impotence / SNOMED CT 7087622678 / Confirmed Incomplete bladder emptying / SNOMED CT 416079058 / Confirmed Incontinence without sensory awareness / SNOMED CT 2749993986 / Confirmed Leaking of urine / SNOMED CT 4125308593 / Confirmed Nocturia / SNOMED CT 163722717 / Confirmed Post-void dribbling / SNOMED CT 818724023 / Confirmed Prostate cancer screening / SNOMED CT 393824687 / Confirmed Urge incontinence / SNOMED CT 918500827 / Confirmed Urinary frequency / SNOMED CT 624632866 / Confirmed Urinary incontinence / SNOMED CT 9504053757 / Confirmed Urinary retention / SNOMED CT 388545703 / Confirmed Weak urinary stream / SNOMED CT 459446229 / Confirmed Resolved: Hypertension / SNOMED CT 7239675468 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 Pt. Reports [...] to be instructed in home exercise program. Residential Goals: To be met in 10 weeks [...] Please sign below. Date: documented in this encounterWestern Missouri Medical CenterKaxfocvqxw81-04-5339 History of Present illness Narrative* Ramírez Paez, - 07/15/2024 9:00 AM EDT Images from the original note were not included. No chief complaint on file. Subjective Edvin Roland, 78 y.o., male Edvin is here for a neurologic consult at [...] management for his back- Dr. Huang at [facility]. Review of Systems Constitutional: Negative for appetite [...] reflexes are 0 and symmetric throughout. Coordination: Obvfbi-mg-ntjr testing and rapid alternating movements are normal Gait: Patient ambulates with a walker Review and summary of old records: MRI of the cervical spine without contrast on 05/27/2024: Multilevel moderate to marked foraminal narrowing with few levels of moderate canal narrowing and jqch-vh-dfjifjru disc bulging with facet arthropathy. CT of [...] He has previously had EMG analysis in [place]. He is currently undergoing physical therapy and [...] plan, and return instructions documented in this encounterWestern Missouri Medical CenterAxhycwvyqq03-60-0534 Telephone encounter Note* Telephone Encounter - Ulices Esquivel NP - 07/08/2024 10:44 AM EDT Allergies reviewed. Rx sent to pharmacy. [facility] CenterDlhvidtsbn03-13-9498 Miscellaneous Notes* Telephone Encounter - Ulices Esquivel NP - 07/08/2024 10:44 AM EDT Allergies reviewed. Rx sent to pharmacy. * Telephone Encounter - Tomasa Posadas - 07/08/2024 10:22 AM EDT Patient's called stating Edvin is having teeth cleaned 07/15/24 and needs RX sent to [facility] pharmacy is [place]. Please advise. documented in this encounterWestern Missouri Medical CenterIrzjsvlpgr41-35-8475 Telephone encounter Note* Telephone Encounter - Tomasa Posadas - 07/08/2024 10:22 AM EDT Patient's called stating Edvin is having teeth cleaned 07/15/24 and needs RX sent to [facility] pharmacy is [place]. Please advise. [facility] Medical CenterZtowacfisq97-27-1481 Evaluation + Plan noteExtracted from: Title:Pain Managment [...] from our services. ZACARIAS score: 42 %. [facility] 08-28-2024 NoteConsultation Note Patient: EDVIN ROLAND Age: 78 years Sex: Male : [...] list: All Problems Hypercholesterolemia / SNOMED CT 59320164 / Confirmed Hernia, inguinal, right / SNOMED CT 312639327 / Confirmed BPH with urinary obstruction / SNOMED CT 8016798317 / Confirmed Elevated PSA / SNOMED CT 4991654174 / Confirmed Impotence / SNOMED CT 6943996157 / Confirmed Urinary frequency / SNOMED CT 069907030 / Confirmed Nocturia / SNOMED CT 896103711 / Confirmed Weak urinary stream / SNOMED CT 739584178 / Confirmed Gross hematuria / SNOMED CT 857568299 / Confirmed Anticoagulated / SNOMED CT 964517935 / Confirmed Urge incontinence / SNOMED CT 816533376 / Confirmed Chronic prostatitis / SNOMED CT 15986696 / Confirmed Dysuria / SNOMED CT 04692950 / Confirmed Urinary retention / SNOMED CT 332916165 / Confirmed BMI 31.0-31.9,adult / SNOMED CT 416898893 / Confirmed Incomplete bladder emptying / SNOMED CT 673879779 / Confirmed Post-void dribbling / SNOMED CT 935002145 / Confirmed Incontinence without sensory awareness / SNOMED CT 0011989531 / Confirmed At risk for falls / SNOMED CT 267766042 / Possible ED (erectile dysfunction) / SNOMED CT 2776863780 / Confirmed Leaking of urine / SNOMED CT 7441444702 / Confirmed Urinary incontinence / SNOMED CT 4137546892 / Confirmed Prostate cancer screening / SNOMED CT 261747211 / Confirmed Resolved: Hypertension / SNOMED CT 9012107262 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 Neurologic: Alert, Oriented. Psychiatric: Cooperative, Appropriate mood [...] medications. He had a (more content not included)...[facility] AndersonComment on above:Result Comment: Electronically Signed By: Stephenie Barrios PA-C\.br\Date and Time Signed: 07/02/24 09:36 [id number] NoteProgress Note-Physician Patient: EDVIN ROLAND Age: 78 years Sex: Male : [...] Problems Leaking of urine / SNOMED CT 4880568007 / Confirmed Urinary incontinence / SNOMED CT 7228453164 / Confirmed Urge incontinence / SNOMED CT 720243772 / Confirmed Hernia, inguinal, right / SNOMED CT 871491605 / Confirmed Urinary retention / SNOMED CT 794174181 / Confirmed Elevated PSA / SNOMED CT 1868350725 / Confirmed Post-void dribbling / SNOMED CT 176053191 / Confirmed Weak urinary stream / SNOMED CT 902755657 / Confirmed Prostate cancer screening / SNOMED CT 775868377 / Confirmed Nocturia / SNOMED CT 240580506 / Confirmed Urinary frequency / SNOMED CT 280471983 / Confirmed Incontinence without sensory awareness / SNOMED CT 2870450915 / Confirmed Impotence / SNOMED CT 0278605643 / Confirmed Hypercholesterolemia / SNOMED CT 04703445 / Confirmed Gross hematuria / SNOMED CT 025705883 / Confirmed Incomplete bladder emptying / SNOMED CT 506447378 / Confirmed ED (erectile dysfunction) / SNOMED CT 8408372478 / Confirmed Dysuria / SNOMED CT 90236372 / Confirmed Anticoagulated / SNOMED CT 042106092 / Confirmed Chronic prostatitis / SNOMED CT 09162655 / Confirmed BMI 31.0-31.9,adult / SNOMED CT 581749642 / Confirmed BPH with urinary obstruction / SNOMED CT 3837517688 / Confirmed At risk for falls / SNOMED CT 268544209 / Possible Resolved: 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 Comments: 01/25/2024 13:34 Azra Fitzgerald RN 90% relief for 4 hrs Radiofrequency ablation of nerve root of lumbar spine using fluoroscopic guidance (8318036274) on 10/08/2023 at 78 Years. Comments: 11/09/2023 11:23 Savannah Paredes RN Bilateral L3/4+L4/5- no relief Biliateral L3/4, L4/5 MBB (4330469416) on 09/04/2023 at 77 Years. Comments: 09/14/2023 7:53 Tomasa Abdullahi RN Bilateral L3/4, L4/5 MBB-80% relief for 1 day Bilateral L3/L4 L4/L5 MBB (6383631217) on 08/07/2023 at 77 Years. Comments: 08/28/2023 7:57 Sharee Jama RN BL L3/L4 L4/L5 MBB 85% Relief x 4 hours Caudal epidural ([id number]) on 05/29/2023 at 77 Years. Comments: 06/18/2023 10:04 Sharee Jama RN Caudal john 50% relief L3/4 Medial Branch Blocks (7111935947) on 05/01/2023 at 77 Years. Comments: 05/11/2023 9:48 Savannah Mari RN bilateral 75% relief for 2 hours Injection of facet joint using fluoroscopic guidance ([id number]) on 03/12/2023 at 77 Years. Comments: 03/19/2023 9:18 Myranda Butler RN pt changed amt of relief to 80% x 4 hr. 03/19/2023 8:54 Myranda Butler RNat L3/4 MBB- 50% relief x 4 hr Cysto/Botox 100 units ([id number]) on 05/11/2022 at 76 Years. Blepharoplasty ([id number]) on 02/07/2021 at 75 Years. Cystourethroscopy with dilation of urethral stricture (165706040) on 12/02/2020 at 75 Years. Right eye cataract extraction and insertion of intraocular lens (7210980562) on 11/02/2020 at 75 Years. TURP - Transurethral resection of prostate (166578145) on 04/28/2020 at 74 Years. Cystourethroscopy with dilation of urethral stricture (722232183) on 12/08/2019 at 74 Years. back surgery on 10/16/2019 at 74 Years. Comments: 12/02/2019 9:22 JU - Marine Dempsey 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3 Placement of stent in cardiac conduit ([id number]) on 06/16/2019 at 73 Years. inguinal hernia repair in 2018 at 72 Years. TURP - Transurethral resection of prostate (487246188) on 07/12/2016 at 70 Years. Cystoscopy (22127944) on 06/23/2016 at 70 Years. Evolve laser of prostate ([id number]) on 03/14/2013 at 67 Years. Urodynamics (137138307) on 02/13/2013 at 67 Years. Back (266874646). Arthroscopy of knee joint (968278893). CE - Cataract extraction (8012301726). R (more content not included)...[facility] AndersonComment on above: Result Comment: Electronically Signed By: Gokul Escalera Jr, DO\.br\Date and Time Signed: 06/26/24 07:45 [id number] NoteProgress Note-Physician Patient: EDVIN ROLAND Age: 78 years Sex: Male : 1945 Associated Diagnoses: None Author: Gokul Escalera Jr, DO Postoperative Information Postoperative disposition: Postoperative disposition: To PACU. Optimetrix number: Optimetrix number [id number]. Anesthetic utilized: General. Health Status Allergies: Allergic [...] Discharge when meets criteria ( To home ).[facility] AndersonComment on above:Result Comment: Electronically Signed By: Gokul Escalera Jr, DO\.br\Date and Time Signed: 06/26/24 07:45 EDT 06-24-2024 Evaluation + Plan noteExtracted from: Title:Spinal cord stimulator trial Author:Bert Huang DO Date:06/24/24 Diagnosis: Lumbar postlamine ctomy pain syndrome, M96.1. Chronic pain syndrome G89.29. Procedure: Spinal cord stimulator trial under fluoroscopic guidance with two 16 contact [employer] leads from [employer] and 2 click anchors, 98193. Analyze neurostimulator complex, 19128. Anesthesia: MAC Complications: None Description: After informed [...] the epidural space with confirmation using glass xjki-ei-xnjfsnadlj syringe and lead was threaded at T12/L1. [...] 08:45:00 AM Scheduled Provider:Stephenie Barrios PA-C Location:.[facility] [place] Appointment Type:Pain Management - Follow Up (FT) [facility] 08-08-2024 Hospital Discharge instructions Patient Education [...] nerve stimulation). ?For women, using a medical asst to prevent urine leaks. This is a [...] right after experiencing incontinence. General instructions Take ipcj-uqd-emkzxem and prescription medicines only as told by [...] important. Where to find more information National [place] of Diabetes and Digestive and Kidney Diseases: www.niddk.nih.gov [place] [employer] Association: www.urologyhealth.org Contact a health care [...] provider. Document Revised: 05/27/2021 Document Reviewed: 05/27/2021 [employer] Patient Education 2022 [employer]. Follow Up Care 05/23/2024 09:29:30 With:NINA SHIPMAN, ALANIS Bustillo, URL Address: [address] [place] [phone] When: Unknown Comments:KESH[facility] 08-08-2024 NotePatient Education Urology Urinary [...] stimulation). ? For women, using a medical asst to prevent urine leaks. This is a [...] that can protect the (more content not included)...[facility]07-18-2024 History of Present illness Narrative* Marisol Connors MD - 05/22/2024 9:50 AM EDT Subjective Edvin Roland is a 78 y.o. male Chief [...] exam, discussion and plan. documented in this [facility] Work Phone: [phone] 202-171307-18-2024 Instructions* Patient Instructions* Lora Torres LPN - [...] proceed with back stimulator documented in this [facility] Work Phone: 1(420) 518-442806-28-2024 Evaluation + Plan noteExtracted from: Title:Pain Managment [...] authorization has been obtained ZACARIAS score: 56%. [facility]06-28-2024 NoteConsultation Note Patient: EDVIN ROLAND Age: 78 years Sex: Male : [...] hrs., # 15 tab(s), Refills(s) 3, [id number] 193, cm, 08/31/22 9:11:00 EDT, Height/Length Dosing, 114.5, kg, 08/31/22 9:11:00 EDT, Weight Dosing... amitriptyline 10 mg Tab: 10 mg = 1 tab(s), Oral, Once a day (at bedtime), X 30 day(s), # 30 tab(s),Refills(s) 1, Pharmacy: [facility] #[id number], 193, cm, 03/14/24 9:55:00 EDT, Height/Length Dosing, 104.5, kg, 03/14/24 9:55:00 EDT, Weight Dosing amitriptyline 25 mg Tab: 25 mg = 1 tab(s), Oral, Once a day (at bedtime), X 30 day(s), # 30 tab(s),Refills(s) 1, Pharmacy: [id number], 193, cm, 05/02/24 10:29:00 EDT, Height/Length [...] list: All Problems Hypercholesterolemia / SNOMED CT 61685734 / Confirmed Hernia, inguinal, right / SNOMED CT 377019316 / Confirmed BPH with urinary obstruction / SNOMED CT 7811507557 / Confirmed Elevated PSA / SNOMED CT 7875280599 / Confirmed Impotence / SNOMED CT 3387240220 / Confirmed Urinary frequency / SNOMED CT 674129017 / Confirmed Nocturia / SNOMED CT 819899598 / Confirmed Weak urinary stream / SNOMED CT 034113733 / Confirmed Gross hematuria / SNOMED CT 274490347 / Confirmed Anticoagulated / SNOMED CT 489145775 / Confirmed Urge incontinence / SNOMED CT 123301120 / Confirmed Chronic prostatitis / SNOMED CT 38999062 / Confirmed Dysuria / SNOMED CT 49479162 / Confirmed Urinary retention / SNOMED CT 033714633 / Confirmed BMI 31.0-31.9,adult / SNOMED CT 798778877 / Confirmed Incomplete bladder emptying / SNOMED CT 820814557 / Confirmed Post-void dribbling / SNOMED CT 222607177 / Confirmed Incontinence without sensory awareness / SNOMED CT 6196983366 / Confirmed At risk for falls / SNOMED CT 052520191 / Possible ED (erectile dysfunction) / SNOMED CT 6565714321 / Confirmed Leaking of urine / SNOMED CT 6155685261 / Confirmed Urinary incontinence / SNOMED CT 6669937254 / Confirmed Prostate cancer screening / SNOMED CT 282688792 / Confirmed Resolved: Hypertension / SNOMED CT 5148401949 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 Eye: Normal conjunctiva. HENT (more content not included)...[facility] Result Comment: Electronically Signed By: Stephenie Barrios PA-C\.br\Date and Time Signed: 05/02/24 10:53 [id number] Evaluation + Plan noteExtracted from: Title:Pain Managment [...] Date:05/02/2024 10:30:00 AM Scheduled Provider:Stephenie Barrios PA-C Location:.[facility] Appointment Type:Pain Management - Follow Up (FT) [facility]03-22-2024 Evaluation + Plan noteExtracted from: Title:Pain [...] AM Scheduled Provider:Stephenie Barrios PA-C Location:.[facility] Appointment Type:Pain Management - Follow Up (FT) [facility]03-06-2024 Evaluation + Plan noteExtracted from: Title:Bilateral [...] Date:01/25/2024 01:30:00 PM Scheduled Provider:Stephenie Barrios PA-C Location:[facility] Appointment Type:Pain Management - Follow Up (FT) [facility]03-06-2024 Note [id number]24 NoteDiagnosis: M46.1, bilateral sacroiliitis Procedure: [...] procedure, and agrees to continue currently prescribed/recommended therapies.[facility] Comment on above:Result Comment: Electronically Signed By: Bert Huang DO.br\Date and Time Signed: 01/09/24 11:32 [id number] Hospital Discharge instructions Patient Education 12/14/2023 10:59:33 [...] nerve stimulation). ?For women, using a medical asst to prevent urine leaks. This is a [...] right after experiencing incontinence. General instructions Take ajov-tmi-lasgvou and prescription medicines only as told by [...] important. Where to find more information National [place] of Diabetes and Digestive and Kidney Diseases: www.niddk.nih.gov [place] [employer]: www.urologyhealth.org Contact a health care [...] provider. Document Revised: 05/27/2021 Document Reviewed: 05/27/2021 [employer] Patient Education 2022 [employer]. Follow Up Care 12/07/2023 15:16:05 With:DUC WALTERS, Homero Marie, URL Address: [facility] [address] , [place] [address] [phone] When: only if needed [facility] 02-05-2024 Evaluation + Plan noteExtracted [...] Date:12/14/2023 09:30:00 AM Scheduled Provider:Homero XAVIER MD Location:[facility] Appointment Type:URO Office Visit [facility]01-10-2024 History of Present illness Narrative* Marisol Connors MD - 11/14/2023 10:10 AM EST Subjective Edvin Roland is a 78 y.o. male Chief [...] Scribe Attestation By signing my name below, Ria Ruby GaoIlir SILVA , Scribe attest that this documentation has been prepared under the direction and in the presence of Marisol Connors MD. Assessment/Plan 1. Arteriosclerosis of coronary artery Follow Up In Cardiology 2. Status post coronary angioplasty 3. Dyslipidemia 4. Essential hypertension 5. Obesity (BMI 30.0-34.9) 6. At risk for falls [facility]: 1(889) 994-876801-10-2024 Instructions* Patient Instructions* Steven Wheeler MA - [...] Fall Prevention Education Given [facility] Phone: [phone]) [phone] Evaluation + Plan noteExtracted from: Title:Pain Managment [...] Date:12/10/2023 11:15:00 AM Scheduled Provider:Bib Sanchez MD [facility] Management - Follow Up (FT) Appointment Date:12/11/2023 01:00:00 PM Scheduled Provider:ALANIS WOOD PA-C [facility] Appointment Type:URO [facility]12-19-2023 Evaluation note* Encounter Date Diagnosis Assessment [...] Oct, Fatigue, unspecified type (ICD-10 - R53.83) [employer] Other 12-04-2023 Note [id number] 09-14-2023 Evaluation + Plan noteExtracted [...] follow-up as above mentioned ZACARIAS score: 28% [facility]10-31-2023 Note [id number] [facility] 08-07-2023 [id number]:127Fisher [facility]07-07-2023 Evaluation + Plan noteExtracted from: Title:Pain [...] clinic sooner if necessary. ZACARIAS score: 42% [facility]06-29-2023 Evaluation note* Encounter Date Diagnosis Assessment Notes Treatment Notes Treatment Clinical Notes Apr, Thyroid cyst (ICD-10 - E04.1) FNA non-diagnostic - 2014, US: stable nodules, no further scans necessary - 04/2023 [employer] Other 05-15-2023 Evaluation + Plan noteExtracted from: [...] clinic sooner if necessary. ZACARIAS score: 48% [facility]04-19-2023 Evaluation note* Encounter Date Diagnosis Assessment Notes Treatment Notes Treatment Clinical Notes Feb, Low back pain, unspecified (ICD-10 - M54.50) [employer] Other 02-27-2023 Evaluation note* Encounter Date Diagnosis [...] R26.89) Dec, Physical deconditioning (ICD-10 - R53.81) [facility]. Other 01-25-2023 Evaluation note* Encounter Date Diagnosis Assessment Notes Treatment Notes Treatment Clinical Notes Nov, Low back pain, unspecified (ICD-10 - M54.50) Nov, Other chronic pain (ICD-10 - G89.29) [employer] Other 01-24-2023 Hospital Discharge instructions Patient Education [...] urethra. Follow these instructions at home: Take meqi-itk-nfaeniz and prescription medicines only as told by [...] 10/22/2006 Document Revised: 09/16/2019 Document Reviewed: 11/26/2017 [employer] Patient Education 2020 [employer]. Follow Up Care 08/31/2022 09:40:03 With:ALANIS WOOD PA-C, URL Address: [address] [place] [address] When: Unknown [facility] 07-26-2022 Hospital Discharge instructions [...] urethra. Follow these instructions at home: Take kxev-jfe-ydqqhxa and prescription medicines only as told by [...] 10/22/2006 Document Revised: 09/16/2019 Document Reviewed: 11/26/2017 [employer] Patient Education 2020 [employer]. Follow Up Care 05/11/2022 10:39:09 With:Remy Cruz MD, Goldy Collins, URO Address: [facility] [address], [place] [address] [phone] When:Within 2 Month(s) Comments:PVR [facility] 07-07-2022 Hospital Discharge instructions Patient Education 05/11/2022 [...] Alberto Address: [facility] [address], [facility] [place] [address]- [facility] (1) When:4 weeks Comments:PVR with next office visit [facility]06-15-2021 NoteHNO ID: [id number] Author: Alanis Nguyen MD Service: ? Author Type: Physician Type: Progress Notes Filed: 04/19/2021 8:53 AM Note Text: Neurology Follow-Up - April 19, 2021 Edvin Roland is following up for neuropathy. He was last seen on 11/16/20. Notes from previous visits are as follows: 07/27/20: He started with LBP in 2016. Had had L4-5 laminectomy in Feb 2018(Dr. jA lucio). He continued to have LBP, had fusion at L4-5 in Sep 2018. Fusion helped for a few months but had recurrence of LBP. He had a second opinion with Dr. 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 He established with [...] loss of consciousness, he was brought to [facility] needing stitches. CT c- spine showed [...] as he can do more at the [facility]. They are planning to go back to the [facility]. Current Outpatient Medications Medication Sig [...] pain, no s (more content not included)... [facility]02-24-2021 NotePatient Outreach (COVAMN) EDVIN ROLAND ([id number]) 1945 M Date Time Provider Department 12/29/20 WEATHERS, YARITZA VERDE During your visit today, we recorded the following information about you: Allergies As of Date: 12/29/2020 (No Known Allergies) Date Reviewed: 11/16/2020 Reviewed by: Mauri (Shira) SHIRA Horn - Fully Assessed Order(s):SARS-COVID VACCINE 1ST DOSE APPT [[id number]] Order #: [id number] FUTURE Prescriptions as of 12/29/2020 Sig: CYANOCOBALAMIN [...] Of Date: 12/29/2020 (None) Encounter Status:Closed by [employer] on 01/03/21[facility] Evaluation + Plan note Future Appointments Appointment Date:05/11/2022 10:00:00 AM Scheduled Provider: Location:[facility] Appointment Type:Urology FT [facility] evaluation + Plan note Future Appointments Appointment Date:05/30/2022 09:30:00 AM Scheduled Provider:Goldy Alberto Jr., MD [facility] Future Appointments Appointment Date:08/08/2022 08:45:00 AM Scheduled Provider:Goldy Alberto Jr., MD [facility] Appointment Type:URO Office Visit [facility] evaluation + Plan note Future Appointments Appointment Date:01/10/2023 11:00:00 AM Scheduled Provider:ALANIS WOOD PA-C [facility] Appointment Type:URO Office Visit [facility] evaluation + Plan note Future Appointments Appointment Date:03/19/2023 08:30:00 AM Scheduled Provider:Stephenie Barrios PA-C Location:[facility] Appointment Type:Pain Management - [facility] Future Appointments Appointment Date:05/11/2023 10:00:00 AM Scheduled Provider:Stephenie Barrios PA-C Location:[facility] [place] Appointment Type:[facility] - [facility] Future Appointments Appointment Date:08/28/2023 07:45:00 AM Scheduled Provider:Bib Sanchez MD Location:[facility] [place] Appointment Type:Pain Management - [facility] Future Appointments Appointment Date:11/09/2023 11:15:00 AM Scheduled Provider:Stephenie Barrios PA-C Location:[facility] [place] Appointment Type:Pain Management - [facility] ([facility] Future Appointments Appointment Date:06/17/2024 11:30:00 AM Scheduled Provider:Bert Huang DO Location:[facility] [place] Appointment Type:Pain Management - Nurse Consult (FT) Appointment Date:06/24/2024 08:00:00 AM Scheduled Provider: Location:[facility] Appointment Type:Surgery FT Appointment Date:07/02/2024 08:45:00 AM Scheduled Provider:tSephenie Barrios PA-C Location:[facility] [place] Appointment Type:Pain Management - Follow Up (FT) [facility] evaluation + Plan note Future Appointments Appointment Date:06/24/2024 08:00:00 AM Scheduled Provider: Location:[facility] Management Appointment Type:Surgery FT Appointment Date:07/02/2024 08:45:00 AM Scheduled Provider:Stephenie Barrios PA-C Location:[facility] [place] Appointment Type:Pain Management - Follow Up (FT) [facility] evaluation + Plan note Future Appointments Appointment Date:06/24/2024 08:00:00 AM Scheduled Provider: Location:[facility] Management Appointment Type:Surgery FT Appointment Date:07/02/2024 08:45:00 AM Scheduled Provider:Stephenie Barrios PA-C Location:[facility] [place] Appointment Type:Pain Management - Follow Up (FT) Diagnostic Tests Pending * MRSA Screen 06/17/24 [facility] evaluation + Plan note Future Appointments Appointment Date:08/19/2024 08:00:00 AM Scheduled Provider: Location:[facility] Management Appointment Type:Surgery FT Appointment Date:08/27/2024 11:15:00 AM Scheduled Provider:Stephenie Barrios PA-C Location:[facility] [place] Appointment Type:Pain Management - Follow Up (FT) Diagnostic Tests Pending * MRSA Screen 08/12/24 [facility] evaluation + Plan note Future Appointments Appointment Date:08/19/2024 08:00:00 AM Scheduled Provider: Location:[facility] Pain Management Appointment Type:Surgery FT Appointment Date:08/27/2024 11:15:00 AM Scheduled Provider:Stephenie Barrios PA-C Location:[facility] [place] Appointment Type:Pain Management - Follow Up (FT) [facility] evaluation noteNo InformationNort EKK Sweet [employer] Other evaluation noteNort EKK [employer] Other Evaluation note* Diagnosis Arteriosclerosis of coronary artery- Primary Status post coronary angioplasty Postsurgical percutaneous transluminal coronary angioplasty status Dyslipidemia Other and unspecified hyperlipidemia Essential hypertension Unspecified essential hypertension Obesity (BMI 30.0-34.9) At risk for falls Personal history of fall documented in [facility] Work Phone: Evaluation note* Diagnosis Onset Date Resolution Status Abnormal intentional weight loss acute ASHD (arteriosclerotic heart disease) acute Hypercholesterolemia acute Impaired fasting glucose acu te Memory deficit acute Primary hypertension acute [facility] Work Phone: Evaluation note* Diagnosis Onset Date Resolution Status Impaired fasting glucose acu te Lumbar spondylosis acute Memory deficit acute Primary hypertension acute Abnormal intentional weight loss acute ASHD (arteriosclerotic heart disease) acute Impaired fasting glucose acu te Primary hypertension acute [facility] Work Phone: Evaluation note* Diagnosis Onset Date Resolution Status ASHD (arteriosclerotic heart disease) acute Hypercholesterolemia acute Impaired fasting glucose acu te Lumbar spondylosis acute Polyneuropathy acute Primary hypertension acute Medicare annual wellness visit, subsequent noneactive Screening PSA (prostate specific antigen) noneactive [facility] Work Phone: Evaluation note* Diagnosis Onset [...] spondylosis acute Polyneuropathy acute Primary hypertension acute [facility] Work Phone: Evaluation note* Diagnosis Acute [...] idiopathic peripheral neuropathy documented in [facility] encounter [facility] Work Phone: Evaluation note* Diagnosis Acute [...] hip impingement syndrome documented in this encounter [facility] Healthcare[facility]* Diagnosis Acute pain of left [...] hip impingement syndrome documented in this encounter [facility] HealthcareEvaluation note* Diagnosis Swelling of joint of right knee- Primary Right knee pain, unspecified chronicity documented in this encounter [facility] HealthcareEvaluation note* Diagnosis Pre-operative cardiovascular examination- Primary Arteriosclerosis of coronary artery Essential hypertension Unspecified essential hypertension Dyslipidemia Other and unspecified hyperlipidemia Status post coronary angioplasty Postsurgical percutaneous transluminal coronary angioplasty status Former smoker Personal history of tobacco use, presenting hazards to health BMI 34.0-34.9,adult Obesity, Class I, BMI 30-34.9 documented in this encounter [facility] Work Phone: Evaluation note* Diagnosis Onset Date Resolution Status Admit Date ASHD (arteriosclerotic heart disease) acute February 16, 2025 1:50pm Hypercholesterolemia acute Apri l 2024 1:50pm Impaired fasting glucose acute February 16, 2025 1:50pm Lumbar spondylosis acute February 16, 2025 1:50pm Primary hypertension acute Apri l 2024 1:50pm Preop exam for internal medicine non eactive February 16, 2025 1:50pm [facility] Work Phone: Evaluation note* Diagnosis Altered mental status- Primary [facility] noteNo assessment information available [facility] Work Phone: Evaluation note* Diagnosis Acute pain of left knee- Primary Acute pain of left shoulder Arthritis of left knee Impingement of left shoulder documented [facility] encounter [facility]* Diagnosis Arteriosclerosis of coronary artery Essential hypertension Unspecified essential hypertension Dyslipidemia Other and unspecified hyperlipidemia Status post coronary angioplasty Postsurgical percutaneous transluminal coronary angioplasty status BMI 28.0-28.9,adult Former smoker Personal history of tobacco use, presenting hazards to health documented in this encounter [facility] Work Phone: History general Narrative - Reported* Type Description Date Medical History HTN Medical History neuropathy Medical History arthritis Medical History heart stent Medical History cataracts Medical History Gout Medical History high cholesterol Medical History prostate Surgical History heart cath with stent placed Surgical History back surgery x 2 Surgical History hernia repair Hospitalization History see surg hx [facility] Other History general Narrative - Reported* Type [...] eyes Hospitalization History see surgery list [facility] Other History general [facility] Other Hospital course Narrative No data available for this section [facility] Hospital Discharge instructions No data available for this section [facility] Hospital Discharge instructionsNot on filedocumented in this encounterMer[facility] SystemProgress note No data available for this section [facility] reason for referral (narrative)* Consultation (Routine) - Authorized Specialty Diagnoses / Procedures Referred By Jonathan gann Referred To Contact Cardiology Diagnoses Arteriosclerosis of coronary artery Procedures Follow Up In Cardiology Marisol Connors MD [address] [address], [address] [address] Marisol Connors MD [address] [facility] 2, [address] [address] Referral ID Status Reason Start Date Expiration Date V isits Requested Visits Authorized [id number] Authorized 11/14/2023 11/13/2024 1 1 [facility] Work Phone: Reason for referral (narrative)* Consultation (Routine) - Authorized Specialty Diagnoses / Procedures Referred By Contac t Referred To Contact Cardiology Diagnoses Arteriosclerosis of coronary artery Procedures Follow Up In Cardiology Marisol Connors MD [address] [place] [address] 2, [address] [address] Marisol Connors MD [address] [place] [address] 2, [address] [address] Referral ID Status Reason Start Date Expiration Date V isits Requested Visits Authorized [id number] Authorized 05/22/2024 05/22/2025 1 1 [facility] Work Phone: Rectki for referral (narrative)* Misc (Routine) - Pending Review Specialty Diagnoses / Procedures Referred By Contac t Referred To Contact Procedures Adult diet Alonso Patricia MD [address] [facility] [place] [address] Phone: tel: fax: Referral ID Status Reason Start Date Expiration Date V isits Requested Visits Authorized [id number] Pending Review 04/28/2025 04/28/2026 1 1 [facility])No reason for referral information availableSt. [facility] Work Phone: Reason for visit Narrative* Consultation (Routine) - Authorized Specialty Diagnoses / Procedures Referred By Contac t Referred To Contact Physical Therapy Diagnoses Acute pain of left knee Foot drop, right foot History of falling Left hip impingement syndrome Right hip impingement syndrome Procedures [place] OFFICE/OUTPATIENT [facility] 60 MINUTES Fatoumata Montes PA [address] [facility] [address] [place] [address] Chauncey Aldrich, PT [address] [facility] [address] [place] [address] Referral ID Status Reason Start Date Expiration Date Visits Requested Visits Authorized [id number] Authorized Consult and Treat 05/13/2024 11/09/2024 99 99 [facility] HealthcareReason for visit Narrative* Consultation (Routine) - Closed Specialty Diagnoses / Procedures Referred By Jonathan gann Referred To Contact Physical Therapy Diagnoses Acute pain of left knee Foot drop, right foot History of falling Left hip impingement syndrome Right hip impingement syndrome Procedures [place] [facility] Fatoumata Montes PA [address] [facility] [address] [place] [address] Chauncey Aldrich, PT [address] [facility] [address] [place] [address] Referral ID Status Reason Start Date Expiration Date V isits Requested Visits Authorized [id number] Closed Consult and Treat 05/13/2024 11/09/2024 99 99 [facility] HealthcareReason for visit Narrative* Auth/Cert Specialty Diagnoses / Procedures Referred By Jonathan gann Referred To Contact Diagnoses Altered Mental Status [address] [address] Referral ID Status Reason Start Date Expiration Date Visits Re quested Visits Authorized [id number] 1 1 [facility] Summary Purpose Family History Relationship Condition Age [...] Unknown father Unknown mother Unknown Advance Directives Advance Directive Response Recorded Date/ Time Advance Directives No June 30, 2017 11:34am Advance Directive Response Recorded Date/ Time Advance Directives No June 30, 2017 12:34pm Date Activated Date Inactivated Comments 04/23/2025 12:11 AM 04/29/2025 12:45 PM Date Activated Date Inactivated Comments 02/14/2022 5:01 PM 02/15/2022 5:17 PM Assessments No Assessments Information Available Chief Complaint * EDVIN ROLAND is being seen for a 8 [...] peripheral neuropathy limit his daily activities * EDVIN ROLAND is being seen for a 8 [...] peripheral neuropathy limit his daily activities * EDVIN ROLAND is being seen for a 6 [...] was provided to prevent future falls. * EDVIN ROLAND is being seen for a 6 [...] Lumbar spondylosis ( M47.816) Referral Organization [facility] José Luis nino Referring Provider First Name Dorothy Referring Provider Last Name Rafael Referring Provider Specialty Internal Me dicine Referred Organization [facility] Referred Provider Allison Kenyon Referred Address [address] [place],[address] Referred Provider Specialty Neurological Surgery Referral Priority [...] Visit Chief Complaint 6 Month Follow Up [facility] Reason for Visit Abnormal intentional weight loss ASHD (arteriosclerotic heart disease) Hypercholesterolemia Impaired fasting glucose Memory deficit Primary hypertension Chief Complaint [facility] Blood Pressure Reason for Visit Impaired [...] exam for internal medicine February 032024 1:50pm Chief Complaint Admit Date Intermediate Visit March 12, 2025 11:59p m Intermediate Visit March 26, 2025 11:59 pm Intermediate Visit April 09, 2025 11:59 pm Amb Documentation April 16, 2025 2:02 pm Intermediate Visit April 30, 2025 11:5 9pm Amb Documentation May 18, 2025 9:[address] [facility], testing done. May 1:49pm Chief Complaint Admit Date Intermediate Visit March 12, 2025 11:59p m Intermediate Visit March 26, 2025 11:59 pm Intermediate Visit April 09, 2025 11:59 pm Amb Documentation April 16, 2025 2:02 pm Intermediate Visit April 30, 2025 11:5 9pm Amb Documentation May 18, 2025 9:[address] [facility], testing done. May 1:49pm [facility] follow up May 29, 2025 11:3 8am Reason for Visit Admit Date Delirium May 26, 2025 1:49 pm DDD (degenerative disc disease), lumbar May 26, 2025 1:49pm ASHD (arteriosclerotic heart disease) Ju 2024 11:38am Delirium May 29, 2025 11:3 8am Generally unsteady May 29, 2025 11:3 8am Lumbar spondylosis with myelopathy May 29, 2025 11:38am Polyneuropathy May 29, 2025 11:3 8am Primary hypertension May 29, 2025 11: 38am Additional Source Comments (unrecognized sect ion and [...] section and content) DATE CREATED AUTHOR 04/23/2018 [facility] DATE CREATED AUTHOR AUTHOR'S ORGANIZ ATION 09/10/2020 [facility] DATE CREATED AUTHOR AUTHOR'S ORGANIZ ATION 12/26/2021 [facility] DATE CREATED AUTHOR AUTHOR'S ORGANIZ ATION 03/11/2023 [facility] DATE CREATED AUTHOR AUTHOR'S ORGANIZ ATION 03/11/2023 [facility] DATE CREATED AUTHOR AUTHOR'S ORGANIZ ATION 03/18/2023 [facility] DATE CREATED AUTHOR AUTHOR'S ORGANIZ ATION 06/19/2024 [facility] DATE CREATED AUTHOR AUTHOR'S ORGANIZ ATION 08/13/2024 [facility] DATE CREATED AUTHOR AUTHOR'S ORGANIZ ATION 09/26/2024 [facility] DATE CREATED AUTHOR AUTHOR'S ORGANIZ ATION 01/29/2025 [facility] DATE CREATED AUTHOR AUTHOR'S ORGANIZ ATION 04/02/2025 [facility] DATE CREATED AUTHOR AUTHOR'S ORGANIZ ATION 04/29/2025 [facility] DATE CREATED AUTHOR AUTHOR'S ORGANIZ ATION 05/02/2025 [facility] DATE CREATED AUTHOR AUTHOR'S ORGANIZ ATION 05/27/2025 [facility] DATE CREATED AUTHOR AUTHOR'S ORGANIZ ATION 06/08/2025 [facility] EPIC Care Team (unrecognized sect ion and content) Team Status: Active Member Role Status Dates Dorothy Hall , DO Primary Care Provider Active Team Status: Active Member Role Status Dates Dorothy Hall DO Primary Care Provide r, Attending Provider Active Start: January 26, 2025 Team Status: Inactive Member Role Status Dates Dorothy Hall DO Primary Care Provide r, Attending Provider Active Start: February 16, 2025 End: February 16, 2025 Team Status: Inactive Member Role Status Dates Dorothy Hall DO Primary Care Provide r, Attending Provider Active Start: April 28, 2024 End: April 28, 2024 Team Status: Active Member Role Status Dates Dorothy Hall DO Primary Care Provide r, Attending Provider Active Start: December 24, 2023 Team Status: Inactive Member Role Status Dates Dorothy Hall DO Primary Care Provide r, Attending Provider Active Start: December 31, 2023 End: December 31, 2023 Team Status: Inactive Member Role Status Dates Dorothy Hall DO Primary Care Provide r, Attending Provider Active Start: January 18, 2024 End: January 18, 2024 Labor Relations Analyst Relationship Specialty Start Date End Date Dorothy Hall DO [address] [place] [address] PCP - General Internal Medicine 11/14/23 Team Status: Inactive Member Role Status Dates Dorothy Hall DO Attending Provider Active Sta rt: October 23, 2023 End: October 23, 2023 Team Status: Active Member Role Status Dates Dorothy Hall DO Primary Care Provide r, Attending Provider Active Start: April 29, 2024 Team Status: Inactive Member Role Status Dates Dorothy Hall DO Primary Care Provide r, Attending Provider Active Start: May 07, 2024 End: May 07, 2024 Team Status: Inactive Member Role Status Dates Dorothy Hall DO Primary Care Provide r, Attending Provider Active Start: June 13, 2024 End: June 13, 2024 Labor Relations Analyst Relationship Specialty Start Date End Date Dorothy Hall MD [address] [place] [id number] PCP - General Internal Medicine 02/25/24 Labor Relations Analyst Relationship Specialty Start Date End Date Dorothy Hall MD [address] [place] [address] PCP - General Internal Medicine 02/25/24 Labor Relations Analyst Relationship Specialty Start Date End Date Dorothy Hall MD [address] [place] [id number] PCP - General Internal Medicine 02/25/24 Labor Relations Analyst Relationship Specialty Start Date End Date Dorothy Hall MD [address] [place] [phone] PCP - General Internal Medicine 02/25/24 Labor Relations Analyst Relationship Specialty Start Date End Date Dorothy aHll MD [address] [facility] [place] [address] PCP - General Internal Medicine 02/25/24 Labor Relations Analyst Relationship Specialty Start Date End Date Dorothy Hall MD [address] [facility] [place] [address] PCP - General Internal Medicine 02/25/24 Labor Relations Analyst Relationship Specialty Start Date End Date Dorothy Hall MD [address] [facility] [place] [address] PCP - General Internal Medicine 02/25/24 Labor Relations Analyst Relationship Specialty Start Date End Date Dorothy Hall MD [address] [facility], [facility] PCP - General Internal Medicine 02/25/24 Labor Relations Analyst Relationship Specialty Start Date End Date Dorothy Hall MD [address] [facility] [place] [address] PCP - General Internal Medicine 02/25/24 Labor Relations Analyst Relationship Specialty Start Date End Date Dorothy Hall MD [address] [facility], [facility] PCP - General Internal Medicine 02/25/24 Labor Relations Analyst Relationship Specialty Start Date End Date Dorothy Hall DO PCP - General Internal Medicine 11/14/23 Labor Relations Analyst Relationship Specialty Start Date End Date Dorothy Hall MD [address] [facility] [place] [address] PCP - General Internal Medicine 02/25/24 Labor Relations Analyst Relationship Specialty Start Date End Date Dorothy Hall MD [address] [facility] [place] [address] PCP - General Internal Medicine 02/25/24 Labor Relations Analyst Relationship Specialty Start Date End Date Dorothy Hall MD [address] [facility] [place] [address] PCP - General Internal Medicine 02/25/24 Labor Relations Analyst Relationship Specialty Start Date End Date Dorothy Hall MD [address] [facility] [place] [address] PCP - General Internal Medicine 02/25/24 Labor Relations Analyst Relationship Specialty Start Date End Date Dorothy Hall MD [address] [facility] [place] [address] PCP - General Internal Medicine 02/25/24 Labor Relations Analyst Relationship Specialty Start Date End Date Dorothy Hall MD [address] [facility] [place] [address] PCP - General Internal Medicine 02/25/24 Labor Relations Analyst Relationship Specialty Start Date End Date Dorothy Hall MD [address] [facility] [place] [address] PCP - General Internal Medicine 02/25/24 Labor Relations Analyst Relationship Specialty Start Date End Date Dorothy Hall MD [address] [facility] [place] [address] PCP - General Internal Medicine 02/25/24 Labor Relations Analyst Relationship Specialty Start Date End Date Dorothy Hall MD [address] [place] [address] PCP - General Internal Medicine 02/25/24 Labor Relations Analyst Relationship Specialty Start Date End Date Dorothy Hall MD [address] [place] [address] PCP - General Internal Medicine 02/25/24 Labor Relations Analyst Relationship Specialty Start Date End Date Dorothy Hall MD [address] [place] [address] PCP - General Internal Medicine 02/25/24 Labor Relations Analyst Relationship Specialty Start Date End Date Dorothy Hall DO PCP - General Internal Medicine 11/14/23 Anita Schmid MD [address] [place] [address] [address] [place] [address] Referring Physician 01/28/25 Labor Relations Analyst Relationship Specialty Start Date End Date Dorothy Hall DO [address] [place] [address] PCP - General Internal Medicine 01/27/22 Labor Relations Analyst Relationship Specialty Start Date End Date Dorothy Hall DO PCP - General Internal Medicine 02/25/24 Team Status: Active Member Role Status Dates Dorothy Hall DO Primary Care Provider Active Start: March 12, 2025 Dorothy Hall DO Attending Provider Active Sta rt: March 12, 2025 Team Status: Active Member Role Status Dates Dorothy Hall DO Primary Care Provider Active Start: March 26, 2025 Dorothy Hall DO Attending Provider Active Sta rt: March 26, 2025 Team Status: Active Member Role Status Dates Dorothy Hall DO Primary Care Provider Active Start: April 09, 2025 Dorothy Hall , Attending Provider Active Sta rt: April 09, 2025 Team Status: Active Member Role Status Dates Dorothy Hall DO Primary Care Provider Active Start: April 16, 2025 Jillian Jones CMA Attending Provider Active Start: April 16, 2025 Team Status: Active Member Role Status Dates Dorothy Hall DO Primary Care Provider Active Start: April 20, 2025 Haseeb Meehan , Attending Provider Active S tart: April 20, 2025 Team Status: Active Member Role Status Dates Dorothy aHll DO Primary Care Provider Active Start: April 21, 2025 Vinny Porter MD Attending Provider Active Start: April 21, 2025 Team Status: Active Member Role Status Dates Dorothy Hall DO Primary Care Provider Active Start: April 22, 2025 Vinny Porter MD Attending Provider Active Start: April 22, 2025 Team Status: Active Member Role Status Dates Dorothy Hall DO Primary Care Provider Active Start: April 30, 2025 Dorothy Hall DO Attending Provider Active Sta rt: April 30, 2025 Team Status: Active Member Role Status Dates Dorothy Hall DO Primary Care Provider Active Start: May 18, 2025 Jillian Jones CMA Attending Provider Active Start: May 18, 2025 Team Status: Inactive Member Role Status Dates Dorothy Hall DO Primary Care Provider Active Start: May 26, 2025 End: May 26, 2025 Ramírez Paez DO Attending Provider Active Start: May 26, 2025 End: May 26, 2025 Team Status: Inactive Member Role Status Dates Dorothy Hall DO Primary Care Provider Active Start: May 29, 2025 End: May 29, 2025 Dorothy Hall DO Attending Provider Active Sta rt: May 29, 2025 End: May 29, 2025 Labor Relations Analyst Relationship Specialty Start Date End Date Dorothy Hall DO [address] [place] [address] PCP - General Internal Medicine 06/01/25 Labor Relations Analyst Relationship Specialty Start Date End Date Dorothy Hall DO [address] [place] [address] PCP - General Internal Medicine 06/01/25 Labor Relations Analyst Relationship Specialty Start Date End Date Dorothy Hall DO [address] [place] [address] PCP - General Internal Medicine 06/17/25 Anita Schmid MD Referring Physician 01/28/25 REASON FOR VISIT (unrecogniz ed section and content) Reason Comments Follow-up 6 month Reason Comments Follow-up 6 months Specialty Diagnoses / Procedures Referred By Jonathan t Referred To Contact Cardiology Diagnoses Arteriosclerosis of coronary artery Procedures Follow Up In Cardiology Marisol Connors MD [address] [place] [address], [address] [address] Marisol Connors MD [address] [place] [address], [address] [address] Referral ID Status Reason Start Date Expiration Date V isits Requested Visits Authorized [id number] Authorized 11/14/2023 11/13/2024 1 1 Reason Onset Date Comments Dentist 07/08/2024 Reason Comments Pain Reason Comments Pre-op Clearance Lumbar fusion-Dr. Mondragon-Scheduled 02/24 Specialty Diagnoses / Procedures Referred By Jonathan t Referred To Contact Diagnoses Arteriosclerosis of coronary artery Pre-operative cardiovascular examination Procedures ECG 12 Lead Marisol Connors MD [address] [place] [address] Phone: tel: fax: Referral ID Status Reason Start Date Expiration Date V isits Requested Visits Authorized [id number] Authorized 01/28/2025 01/28/2026 1 1 Reason Onset Date Comments Needs Premed for dental appt 05/01/2025 Reason Comments Pain Reason Comments Follow-up 6 month, coronary ar debbie disease Specialty Diagnoses / Procedures Referred By Jonathan gann Referred To Contact Cardiology Diagnoses Arteriosclerosis of coronary artery Procedures Follow Up In Cardiology Marisol Connors MD [address] [place] [address] 2, [address] [address] Phone: tel: fax: Marisol Connors MD [facility] [address], [address] [address] Phone: tel: fax: Referral ID Status Reason Start Date Expiration Date V isits Requested Visits Authorized [id number] Authorized 05/22/2024 05/22/2025 1 1 Goals (unrecognized section and content) Goals may be documented in a n alternate section Scheduled Active and Recently Administ ered Medications (unrecognized section and content) Medication Order 04/27/2025 04/28/2025 04/29/2025 allopurinoL (ZYLOPRIM) tablet 300 mg 300 mg, oral, Daily, First dose on Concetta 04/23/25 at 0900, Look-alike/sound-alike medication - verify indication for use. 1102 (Given - Provider: Uri Valenzuela RN) 0810 (Given - Provider: Uri Valenzuela RN) 0823 (Given - Provider: Jeimy Brooks, RN) amLODIPine (NORVASC) tablet 5 mg 5 mg, oral, Daily, First dose on Concetta 04/23/25 at 0900, Look-alike/sound-alike medication - verify indication for use. Avoid grapefruit juice. 1101 (Given - Provider: Uri Valenzuela RN) 0809 (Given - Provider: Uri Valenzuela, DICK) 0822 (Given - Provider: Jeimy Brooks, RN) aspirin EC tablet 81 mg 81 mg, oral, 2 times daily, First dose on Concetta 04/23/25 at 0200, Do not crush or chew. 1101 (Given - Provider: Uri Valenzuela RN)2108 (Given - Provider: Zenaida Theodore) 0809 (Given - Provider: Uri Valenzuela RN)2108 (Given - Provider: Zenaida Theodore) 0822 (Given - Provider: Jeimy Brooks, RN) atorvastatin (LIPITOR) tablet 40 mg 40 mg, oral, Daily, First dose on Concetta 04/23/25 at 0900, Look-alike/sound-alike medication - verify indication for use. 1100 (Given - Provider: Uri Valenzuela RN) 0809 (Given - Provider: Uri Valenzuela RN) 0823 (Given - Provider: Jeimy Brooks, RN) calcium carbonate-vitamin D3 (OSCAL 500 + D) 500 mg (1,250 mg) - 200 units per tablet 1 tablet 1 tablet, oral, 2 times daily with meals, First dose on Concetta 04/23/25 at 0800, Look-alike/sound-alike medication - verify indication for use. Vit D3 200 IU = 5 mcg. 1102 (Given - Provider: Uri Valenzuela RN)1620 (Given - Provider: Uri Valenzuela RN) 0810 (Given - Provider: Uri Valenzuela RN)1712 (Given - Provider: Uri Valenzuela RN) 0823 (Given - Provider: Jeimy Brooks, DICK) cyanocobalamin tablet 1,000 mcg 1,000 mcg, oral, Daily, First dose on Concetta 04/23/25 at 0900 1103 (Given - Provider: Uri Valenzuela RN) 0809 (Given - Provider: Uri Valenzuela RN) 0823 (Given - Provider: Jeimy Brooks, DICK) famotidine (PEPCID) tablet 20 mg 20 mg, oral, Every 12 hours, First dose on Concetta 04/23/25 at 0015, Pharmacy to adjust dose per renal function 1101 (Given - Provider: Uri Valenzuela RN)2108 (Given - Provider: Zenaida Theodore) 0810 (Given - Provider: Uri Valenzuela RN)2108 (Given - Provider: Zenaida Theodore) 0823 (Given - Provider: Jeimy Brooks, DICK) heparin (porcine) injection 5,000 Units 5,000 Units, subcutaneous, Every 12 hours scheduled, First dose on Concetta 04/23/25 at 0015, Notify prescriber if INR greater than 1.9, hemoglobin less than 10 mg/dL, aPTT greater than 40 seconds, and/or platelet count less than 100,000/mm Look-alike/sound-alike medication - verify indication for use. Observe for bleeding. 1112 (Given - Provider: Uri Valenzuela RN)2107 (Given - Provider: Zenaida Theodore) 0814 (Given - Provider: Uri Valenzuela RN)2107 (Given - Provider: Zenaida Theodore) 08 (Given - Provider: Jeimy Brooks, RN) hydroCHLOROthiazide (HYDRODIURIL) tablet 25 mg 25 mg, oral, Daily, First dose on Concteta 04/23/25 at 0900, Look-alike/sound-alike medication - verify indication for use. 1102 (Given - Provider: Uri Valenzuela RN) 0809 (Given - Provider: Uri Valenzuela RN) 0822 (Given - Provider: Jeimy Brooks, DICK) melatonin (CIRCADIN) tablet 5 mg 5 mg, oral, Nightly, First dose on Concetta 04/23/25 at 0200 210 (Given - Provider: Zenaida Theodore) 2108 (Given - Provider: Zenaida Theodore) potassium chloride (K-TAB,KLOR-CON) CR tablet 20 mEq 20 mEq, oral, 2 times daily, First dose on Concetta 04/23/25 at 0200, Do not crush or chew. 1101 (Given - Provider: Uri Valenzuela RN)2107 (Given - Provider: Zenaida Theodore) 0810 (Given - Provider: Uri Valenzuela RN)2107 (Given - Provider: Zenaida Theodore) 0822 (Given - Provider: Jeimy Brooks, RN) sodium chloride 0.9 % flush 3 mL 3 mL, intravenous, Every 12 hours scheduled, First dose on Concetta 04/23/25 at 0015 1122 (Given - Provider: Uri Valenzuela, DICK)2108 (Given - Provider: Zenaida Theodore) 0817 (Given - Provider: Uri Valenzuela RN)2108 (Given - Provider: Zenaida Theodore) 0822 (Given - Provider: Jeimy Brooks, RN) PRN Medication Order 04/27/2025 04/28/2025 04/29/2025 acetaminophen (TYLENOL) tablet 650 mg 650 mg, oral, Every 4 hours PRN, Temperature greater than 38.3 C, Starting on Concetta 04/23/25 at 0009, [Warning: Total Acetaminophen not to exceed more than 4 grams (4000 mg) in 24 hours] 2108 (Given - Provider: Zenaida Theodore) 0951 (Given - Provider: Uri Valenzuela, RN)1408 (Given - Provider: Uri Valenzuela, RN) 0823 (Given - Provider: Jeimy Brooks, DICK) alum-mag hydroxide-simeth (MAALOX) 200-200-20 mg/5 mL suspension 30 mL 30 mL, oral, 4 times daily after meals and at bedtime as needed, dyspepsia, Starting on Sun04/23/25 at 0009, Look-alike/sound-alike medication - verify indication for use. Shake well., Indications: dyspepsia barium sulfate (VARIBAR HONEY) 40 % (w/v) 29% (w/w) suspension 60 mL 60 mL, oral, Once in imaging, contrast, barium sulfate (VARIBAR HONEY) 40 % (w/v) 29% (w/w) suspension, Starting on Sun04/24/25 at 0954, For 1 dose barium sulfate (VARIBAR NECTAR) 40 % (w/v) suspension 10 mL 10 mL, oral, Once in imaging, contrast, barium sulfate (VARIBAR NECTAR) 40 % (w/v) suspension, Starting on Sun04/24/25 at 0954, For 1 dose barium sulfate (VARIBAR THIN HONEY) 40 %(w/v), 29% (w/w)(1500 CPS) suspension 20 mL 20 mL, oral, Once in imaging, contrast, Radiology, Starting on Sun04/24/25 at 0954, For 1 dose dextrose (GLUTOSE) 40 % gel 15 g 15 g, oral, As needed, low blood sugar, blood glucose less than 70 mg/dL, Starting on Concetta 04/23/25 at 0009, If patient conscious and taking PO. If blood glucose is not greater than 70 mg/dL after initial treatment, repeat treatment. dextrose 50 % in water (D50W) 50% solution 25 mL 25 mL, intravenous, As needed, low blood sugar, blood glucose less than 70 mg/dL and unconscious or NPO with IV access, Starting on Sun04/23/25 at 0009, Push over 1-3 minutes STAT. If conscious and not NPO, immediately follow with meal tray or high protein (7 grams) snack if tray not available. If NPO, initiate 5% dextrose in water at 100 mL/hr and contact prescriber for additional orders. If blood glucose is not greater than 70 mg/dL after initial treatment, repeat treatment. VESICANT (RED) Warning: HYPERTONIC solution. glucagon HCL injection 1 mg 1 mg, intramuscular, As needed, low blood sugar, blood glucose less than 70 mg/dL and unconscious or NPO without IV access., Starting on Concetta 04/23/25 at 0009, If conscious and not NPO, immediately follow with meal tray or high protein (7Grams) snack if tray not available. If NPO, initiate IV 5% Dextrose/Water at 100 mL/hr and contact prescriber for additional orders. If blood glucose is not greater than 70 mg/dL after initial treatment, repeat treatment. magnesium sulfate IVPB 2000 mg/50 mL in iso-osmotic water (40 mg/mL premix) 2,000 mg, intravenous, at 25 mL/hr, Administer over 120 Minutes, As needed, Magnesium level 1.7 to 1.9 mg/dL, or Ionized Magnesium level 0.45 to 0.5 mmol/L., Starting on Sun04/27/25 at 0845, Recheck magnesium level 4 hours after infusion complete. With each magnesium result continue the replacement orders as needed. magnesium sulfate IVPB 4000 mg/100 mL in iso-osmotic water (40 mg/mL premix) 4,000 mg, intravenous, at 25 mL/hr, Administer over 240 Minutes, As needed, Magnesium level 1.6 mg/dL or less, or Ionized Magnesium level 0.44 mmol/L or less, Starting on Sun04/27/25 at 0845, Recheck magnesium level 4 hours after infusion complete. With each magnesium result continue the replacement orders as needed. ondansetron (PF) (ZOFRAN) injection 4 mg 4 mg, intravenous, Every 4 hours PRN, nausea, vomiting, Starting on Concetta 04/23/25 at 0009, Intravenous administration preferred to be given over 2-5 minutes. potassium chloride (K-TAB,KLOR-CON) CR tablet 30-50 mEq(Linked Group 1) 30-50 mEq, oral, As needed, Potassium Supplementation, Starting on Sun04/27/25 at 0845, Progress to oral potassium replacement when patient tolerating oral intake. If dose administered, recheck potassium level 4 hours after last dose. For potassium level 3.4 to 3.8 mmol/L and GFR 30 mL/min or greater=30 mEq. For potassium level 3.1 to 3.3 mmol/L and GFR 30 mL/min or greater=40 mEq. For potassium level 3 mmol/L or less and GFR 30 mL/min or greater=50 mEq. Do not crush or chew. 1120 (Given - Provider: Uri Valenzuela RN) potassium chloride (KAYCIEL) 20 mEq/15 mL solution 30-50 mEq(Linked Group 1) 30-50 mEq, oral, As needed, Potassium Supplementation, Starting on Sun04/27/25 at 0845, Progress to oral potassium replacement when patient tolerating oral intake. If dose administered, recheck potassium level 4 hours after last dose. For potassium level 3.4 to 3.8 mmol/L and GFR 30 mL/min or greater=30 mEq. For potassium level 3.1 to 3.3 mmol/L and GFR 30 mL/min or greater=40 mEq. For potassium level 3 mmol/L or less and GFR 30 mL/min or greater=50 mEq. Must dilute before use - Mix in 3-8 ounces of water or juice before administration When administering in feeding tube, flush before and after per policy and monitor potassium levels 1120 (See Alternative - Provider: Uri Valenzuela RN) potassium chloride IVPB 10 mEq/100 mL in water (0.1 mEq/mL premix)(Linked Group 1) 10 mEq, intravenous, at 100 mL/hr, Administer over 60 Minutes, As needed, POTASSIUM REPLACEMENT, Starting on Sun04/27/25 at 0845, IV if unable to use oral/enteral with the current dosing strategies Potassium level 3 mmol/L or less administer Potassium Chloride 50 mEq Potassium level 3.1 to 3.3 mmol/L administer Potassium Chloride 40 mEq Potassium level 3.4 to 3.8 mmol/L administer Potassium Chloride 30 mEq Use central line when applicable. Recheck potassium level 1 hour after total IVPB infusion complete, With each potassium result continue the replacement orders as needed VESICANT (YELLOW) Infuse each 10 mEq over a minimum of 1 hour. 1120 (See Alternative - Provider: Uri Valenzuela RN) QUEtiapine (SEROquel) tablet 25 mg 25 mg, oral, Nightly PRN, , Starting on Sun04/23/25 at 2330, Look-alike/sound-alike medication - verify indication for use. 2107 (Given - Provider: Zenaida Theodore) 2107 (Given - Provider: Zenaida Theodore) sennosides-docusate sodium (SENOKOT-S) 8.6-50 mg 1 tablet 1 tablet, oral, Every 12 hours PRN, constipation, Starting on Sun04/23/25 at 0009 sodium chloride 0.9 % flush 3 mL 3 mL, intravenous, As needed, line care, before and after each intermittent use, Starting on Sun04/23/25 at 0009 sodium chloride 0.9 % flush bag 25 mL, intravenous, at 100 mL/hr, Administer over 15 Minutes, As needed, line care, line care after IVPB administration, Starting on Sun04/23/25 at 0009 Linked Groups Order Group 1: potassium chloride (K-TAB,KLOR-CON) CR tablet 30-50 mEqJump to med 30-50 mEq, oral, As needed, Potassium Supplementation, Starting on Sun04/27/25 at 0845, Progress to oral potassium replacement when patient tolerating oral intake. If dose administered, recheck potassium level 4 hours after last dose. For potassium level 3.4 to 3.8 mmol/L and GFR 30 mL/min or greater=30 mEq. For potassium level 3.1 to 3.3 mmol/L and GFR 30 mL/min or greater=40 mEq. For potassium level 3 mmol/L or less and GFR 30 mL/min or greater=50 mEq. Do not crush or chew. Or potassium chloride (KAYCIEL) 20 mEq/15 mL solution 30-50 mEqJump to med 30-50 mEq, oral, As needed, Potassium Supplementation, Starting on Sun04/27/25 at 0845, Progress to oral potassium replacement when patient tolerating oral intake. If dose administered, recheck potassium level 4 hours after last dose. For potassium level 3.4 to 3.8 mmol/L and GFR 30 mL/min or greater=30 mEq. For potassium level 3.1 to 3.3 mmol/L and GFR 30 mL/min or greater=40 mEq. For potassium level 3 mmol/L or less and GFR 30 mL/min or greater=50 mEq. Must dilute before use - Mix in 3-8 ounces of water or juice before administration When administering in feeding tube, flush before and after per policy and monitor potassium levels Or potassium chloride IVPB 10 mEq/100 mL in water (0.1 mEq/mL premix)Jump to med 10 mEq, intravenous, at 100 mL/hr, Administer over 60 Minutes, As needed, POTASSIUM REPLACEMENT, Starting on Sun04/27/25 at 0845, IV if unable to use oral/enteral with the current dosing strategies Potassium level 3 mmol/L or less administer Potassium Chloride 50 mEq Potassium level 3.1 to 3.3 mmol/L administer Potassium Chloride 40 mEq Potassium level 3.4 to 3.8 mmol/L administer Potassium Chloride 30 mEq Use central line when applicable. Recheck potassium level 1 hour after total IVPB infusion complete, With each potassium result continue the replacement orders as needed VESICANT (YELLOW) Infuse each 10 mEq over a minimum of 1 hour. FOR RECORDS PERTAINING TO PATIENTS WHO ARE [...] BE BASED ON THE PRIMARY CLINICAL RECORDS. [facility]. provides no warranty or guarantee of the accuracy or completeness of information in this document.
[2025-06-18 09:52] LABS: Cholesterol 130 mg/dL (<=200); HDL Cholesterol 57 mg/dL (40-60); Triglycerides 80 mg/dL (<=150); VLDL CHOLESTEROL 16.0 mg/dL
== END 2025-06-18 09:08 | disposition home or self-care (01) ==
LOC: LAB 09:08
PROVIDERS: PCP Internal Medicine; Visit Provider Internal Medicine Cardiovascular Disease
DX: I25.10 Atherosclerotic heart disease of native coronary artery without angina pectoris (principal); E78.5 Hyperlipidemia, unspecified
CPT/HCPCS: 36415; 80061

== ENCOUNTER 2025-09-02 08:55 | Outpatient (OUT) | payer MEDICARE, SELFPAY ==
--- OUTSIDE RECORDS SUMMARY | 2025-08-31 07:10 | XMS_ITS | Continuity of Care Document ---
Author Organization [facility] Address [address] [place] [address] Phone Care Team Providers Care Educational Director Name Role Phone Devang Keyse DO Primary Care Provider Marisol Alas MD Attending Provider [phone] Mesfin Paez DO Attending Provider [phone] Devang Keyes DO Attending Provider Care Teams Patient Care Team Team Status: Active Member Role/Relationship Status Dates Devang Keyes DO Primary Care Provider Active Visit Care Team Team Status: Active Member Role/Relationship Status Dates Devang Keyes DO Primary Care Provider Active Start: June 18, 2025 Brii Pate ProviderActiveStart: June 18, 2025 Visit Care Team Team Status: Inactive Member Role/Relationship Status Dates Devang Keyes DO Primary Care Provider Active Start: August 20, 2025 End: August 20Lynnette Nam ProviderActiveStart: August 20, 2025 End: August 20, 2025 Patient Care Team Team Status: Inactive Member Role/Relationship Status Dates Devang Keyes DO Primary Care Provider Active Start: August 31, 2025 End: August 31Lynnette Sheppard ProviderActiveStart: August 31, 2025 End: August 31, 2025 Chief Complaint and Reason for Visit Chief Complaint Admit Date Follow up 4 month August 20, 2025 9 :23am 3 month follow up August 31, 2025 1 0:21am Reason for Visit Admit Date Bradykinesia August 20, 2025 9 :23am Delirium August 20, 2025 9 :23am DDD (degenerative disc disease), lumbar August 20, 2025 9:23am ASHD (arteriosclerotic heart disease) Oc tober 2024 10:21am Delirium August 31, 2025 1 0:21am Generally unsteady August 31, 2025 1 0:21am Hypercholesterolemia August 31, 2025 10:21am Impaired fasting glucose August 31, 2 025 10:21am Lumbar spondylosis with myelopathy Octob er 2024 10:21am Polyneuropathy August 31, 2025 1 0:21am Primary hypertension August 31, 2025 10:21am Screening PSA (prostate specific antigen ) August 31, 2025 10:21am Allergies, Adverse Reactions, Alerts Allergen Type Severity Reaction Last Updated Verified Status No Known Allergies Allergy Unknown August 31, 2025 10:28amYesActive Social History Smoking Status Status Start Date End Date Date of Observa tion Ex-smoker (finding) June 16, 2019 10:19am Observation Status Observation Response Date of Response Legal Sex Male (finding) [facility] 1944 Family History Relationship Condition Age at Onset Recorded Date/T beatriz Not Specified No pertinent family history Unknown fatherDeceasedUnknownmotherDeceasedUnknown Problems Active Problems Problem Diagnosis/Recorded Date Onset Date Status C omments Lumbar spondylosis with myelopathy May 28, 2025 9:53pm Unknown Active Nicotine addictionApril 2024 8:30pmUnknownActiveage start 89 ppdage quit 38GAD (generalized anxiety disorder)April 15, 2025 8:38amUnknownActiveScreening PSA (prostate specific antigen)August 31, 2025 10:54amUnknownActiveGenerally unsteadyAugust 2023 12:44pmUnknownActiveBradykinesiaOctober 2024 9:59amUnknownActiveDeliriumJune 2024 8:44amUnknownActiveMRI: no mass, infarct or hemorrhage - 02/2025, 04/2025,EEG: no seizure activity - 02/2025 HypercholesterolemiaFebruary 2023 3:25pmUnknownActiveImpaired fasting glucoseFebruary 2023 3:21pmUnknownActivePulmonary noduleMarch 2024 5:15pmUnknownActiveCT: 3-4mm nodules - 02/2025OverweightFebruary 2023 3:22pmUnknownActiveCervical spondylosisAugust 2023 12:19pmUnknownActive Urinary incontinence with continuous leakageAugust 2023 5:20pmUnknownActive Primary hypertensionFebruary 2023 3:25pmUnknownActivePolyneuropathy December 27, 2023 3:25pmUnknownActiveFoot drop, rightAugust 2023 12:19pm UnknownActiveLumbar spondylosisFebruary 2023 3:25pmUnknownActiveMRI: L3-5 hardware w/ artifact, mod L1-2 canal stenosis - SHD (arteriosclerotic heart disease)December 27, 2023 3:25pmUnknownActivePCI/stent RCA - 06/2019 ,Echo: LVEF 55%, JUSTINO, normal RV size/function, RVSP 21, Ao 4.7cm - 32407 Inactive/Resolved Problems Problem Diagnosis/Recorded Date Onset Date Status C omments Abnormal stress electrocardiogram test June 16, 2019 10:18am Unknown Resolved Problem List clean-up per request of Phys. EHR [facility] heart artery stent December 27 3:24pm 2019 Resolved PCI/stent RCA - 06/2019 Neuropathy April 02, 2019 10:11am Unknown Resolved Pr oblem List clean-up per request of Phys. EHR Cmte DDD (degenerative disc disease), lumbar July 24, 2017 8:19am Unknown Resolved Problem List clean-up per request of Phys. EHR Cmte Degenerative lumbar spinal stenosis July 24, 2017 8:19am Unknown Resolved Problem List clean-up per request of Phys. EHR Cmte ASHD (arteriosclerotic heart disease) June 16, 2019 10:18am Unknown Resolved Proble m List clean-up per request of Phys. EHR Cmte Medications Medication Status Dose Units Route Directions Qty Days Refills S tart Date Stop Date End Date Reason(s) Instructions Adherence Hydrochlorothiazide 25 mg tablet Discontinued 0 .ROUTE.AGXRCTY631Atdihswy 2023 8:12pmJune 2023 12:43pmTAKE 1 TABLET BY MOUTH EVERY DAYEtodolac 500 mg qelpckWhemjpepvyyt581HEVMEhtcy 12 hfjwl99184 January 10, 2024 3:02pmJune 2023 1:27pmAmlodipine 5 mg jkcbavFjjsxdirdjtu9PZ POTwice dailyApril 2023 2:56pmApril 2023 7:00amAmlodipine 5 mg mzbchbIrsabmypohnc5CEUBBufvt dauph54433Ycowk 2023 6:59amJune 2023 12:43pmLosartan 25 mg sggvsoUqvnppfheban98EJIETqphh57679Bux 2023 12:00am March 18, 2024 11:34amLosartan 25 mg kwseyjZavgsainwhfc02VYVQGoxyi42710Iwf 2023 11:33amJune 2023 8:39pmAllopurinol 300 mg tabletDiscontinued0.ROUTE .ESTFDRM130Kvp 2023 3:48pmJune 2023 10:40amTAKE 1 TABLET BY MOUTH EVERY DAYEtodolac 500 mg tabletDiscontinued0.ROUTE.IPTFRYR286Gsev 2023 1:26pmJune 2023 12:43pmTAKE 1 TABLET BY MOUTH EVERY 12 HOURS FOR 30 DAYS Losartan 25 mg tabletDiscontinued0.ROUTE.TEIMPVW878Sgyb 2023 8:39pmJune 2023 10:12amTAKE 25 MG BY MOUTH DAILY FOR 30 DAYSAmlodipine 5 mg tablet Discontinued0.ROUTE.RPPIWWK3380Ifpngx 2023 11:44amDecember 2023 10:37amTAKE 1 TABLET BY MOUTH TWICE A DAY FOR 30 DAYSLorazepam 0.5 mg tablet Discontinued0.5MGPODaily as needed for lcxyiewvx72315Nivj 2024 12:00amJune 2024 2:05pmGeneralized anxiety disorder Generalized anxiety disorderMirtazapine 45 mg mlyweqBfymuvmwlqai82KUCUZwdji at orebuuj00368Szzo 2024 4:47pmJuly 2024 11:57amPotassium Chloride (Klor-Con M20) 20 mEq tablet,ER particles/crystalsDiscontinued0.ROUTE.FHRPCNI574 June 03, 2025 12:57pmSeptember 2024 9:31amTAKE 1 TABLET DAILYAmlodipine 5 mg tabletActive0.ROUTE.IBWPJJU6904Bfuexu2024 1:28pmTAKE 1 TABLET TWICE A DAYComplies with drug therapyHydrochlorothiazide 25 mg tabletActive0.ROUTE .QXOLOOE552Kcfvgg2024 1:28pmTAKE 1 TABLET DAILYComplies with drug therapy Atorvastatin 40 mg tabletActive0.ROUTE.EVRYBXU512Ahxstruwc2024 10:02pmTAKE 1 TABLET DAILYComplies with drug therapyEtodolac 500 mg qcqsqoGnhblg403ZAZGDjtlz 12 yuvlc399636Pusyrijgw 4th, 2025 12:00ampainComplies with drug therapyPotassium Chloride (Klor-Con M20) 20 mEq tablet,ER particles/kcwdfdzmYmyfcq11HKLQNYiscz xfpxk788636Vseycjrnh 10th, 2025 9:30amComplies with drug therapyAllopurinol 300 mg tabletActive0.ROUTE.VQFGATT683Rsmcpercg2024 10:23amTAKE 1 TABLET DAILY Complies with drug therapyAmlodipine 5 mg SwswqkHbyjhmdouvsm8TRJBMngdqTiztwr 2016 12:00amApril 2023 2:59pmPravastatin 80 mg LassjvLbrhdzhsthyx14 MGPODaily at bedtimeAugus2016 12:00amFebruary 2023 3:30pm Hydrochlorothiazide 25 mg TicuftOrpmrdsvjszr29QQLZydjryXponea 2016 12:00am January 03, 2024 8:12pmCalcium Carbonate-Vitamin D3 (Calcium 500 + D) 500 mg(1,250mg) -400 unit CyhtvqCgfvsletjive6WXFHVAlnxqIrohmo 2016 12:00amJune 2024 2:04pmAspirin (Manuel Low Dose Aspirin) 81 mg Tablet,Delayed Release (Dr/Ec)Sfeuipneakrh1XYBBKDdttpRnddjf 2016 12:00amApril 2018 8:08am Potassium 99 mg FbducjBvwfjrhkwhtp87KPMCqkicwYaypuv 2016 12:00amApril 2018 8:10amNaproxen Sodium (Aleve) 220 mg FmlwcbExjfyqtfmjca459PGLRSvehc at bedtimeJuly 02, 2017 12:amApril 2018 8:09amNaproxen Sodium (Aleve) 220 mg UfdvpqTeyyqgopyloc061IWJDFfwyx morningAu2016 12:00am July 24, 2017 8:15amGlucosamine-Chondroitin (Osteo Bi-Flex) 250-200 mg RbbiwgKbtpdopfsjer8RJKJPWalgdWhztch 2016 12:00amFebruary 2023 3:30pm [place] 2-Xce-Ejz-Fish Oil (Fish Oil) 1,000 mg (120 mg-180 mg) CapsuleDiscontinued 1200MGPODailygust 2016 12:00amFebruary 2023 3:30pmCyclobenzaprine 10 mg NatmufUcwgwolxocbf04WLMQMywox 8 hours as needed for Muscle Nxtuu66453 July 24, 2017 12:00amApril 2018 8:09amSennosides-Docusate Sodium (Dok Plus) 8.6-50 mg VmwjafMjmnexnvuxrx3TNTFFXesgo jibft98551VdwjtxbmuJuly 24, 2017 12:pril 2018 8:10amOxycodone-Acetaminophen 5-325 mg Tablet Cxdnygmcciog6IELGTT2J as needed for Pain Scale 1 - 437303DvpmeysqjJuly 24, 2017 12:00amApril 2018 8:09amCephalexin (Keflex) 500 mg nieagzhYnxldonqhhnq485 MGPOThree times jlpdz3788Fohjnqecl 19th, 2017 12:00amSept2016 12:00amSept2016 12:02amspace evenly during waking hoursIbuprofen 800 mg UotyfvUqtxvtfpghul671TTLTVolbe times daily as needed for PainApril 2018 12:002018 10:03amTrospium 60 mg capsule,extended release 24hr Zlnxtqpxdaym57JMVCWzjchNswni 2018 12:00amFebruary 2023 3:30pmLutein 6 mg IzxwscRgjtrahkxamy6UWETQkrofKicgv 2018 12:00amJune 2023 10:37am Aspirin 81 mg tablet,delayed release (DR/EC)Unvawi73JYJXBrpgu259Qudlrl 2018 12:00amComplies with drug therapyAtorvastatin (Lipitor) 40 mg tablet Qkecqsjovrwa28RJAZEsajv088686Csgcqk 12th, 2019 12:00amJune 2023 12:43pm Clopidogrel (Plavix) 75 mg hynlryGymaptfeqzcx96LKGJXzaiy154298Umndcd 12th, 2019 12:00amFebruary 2023 3:30pmAllopurinol 300 mg bkekpbTsissrgfjuoe809COCY DailyFebruary 2023 1:00amMay 2023 3:48pmSolifenacin 10 mg tablet Wirupsodzyan28GZJGQtjqmHbocqmbi 2023 1:00amFebruary 2023 11:31am Etodolac 500 mg levwvuKimzqzrlcdfh203TTDNNudmm 12 zrkbh57313Opeuvdae 2023 1:00amMarch 2023 3:02pmPotassium Chloride 20 mEq tablet extended release Npbgjleucrvy60HRMJUFxnau63975Izuwsngd 2023 10:35amDecember 2023 10:40amLosartan 25 mg krozcjWpyylsuecxzs15WXOHTufxn84847Fmadspiq 2023 10:35amDecember 2023 10:40amHydrochlorothiazide 25 mg bvnrvbOfobldnownyn70 PVJTZnrpj84913Wfqzupdz 2023 10:36amDecember 2023 10:40amEtodolac 500 mg pggcliBphduhuuaers651OVCQPvkru sovdd262630Fvotieyd 2023 10:36amDecember 2023 10:40amAtorvastatin (Lipitor) 40 mg ooxabpZhzwdoqjsiyd62CYUMViujo5838 3Decemb2023 10:36amDecember 2023 10:40amAmlodipine 5 mg tablet Discontinued0.ROUTE.TYPMGPF0050Wavhwopp 2023 10:36amDecember 2023 10:40amTAKE 1 TABLET BY MOUTH TWICE A DAY FOR 30 DAYSAllopurinol 300 mg tablet Nchpzdpgbxty781AXGERgtmp95655Jkpskugu 2023 10:36amDecember 2023 10:39amAllopurinol 300 mg uhquroYequpzkrwins195TXBLPpgdd20638Iqdufxor 2023 10:38amDecember 2023 10:40amAllopurinol 300 mg fyirljAhsyabggnzxk005SOVJ Kuqkd47678Lesfmncc 2023 10:39amSeptember 2024 10:24amAmlodipine 5 mg tabletDiscontinued0.ROUTE.FYKENHE7740Zsvfflpq2023 10:39amAugust 2024 1:28pmTAKE 1 TABLET BY MOUTH TWICE A DAY FOR 30 DAYSAtorvastatin (Lipitor) 40 mg qkqqrjAqjhqvcchkzp09KFCTRvicb22516Draodpep 20th, 2024 10:40amSeptember 2024 10:02pmEtodolac 500 mg yefdtsBetscodlnpvt175RAXEOugnv kuytn930292 October 24, 2024 10:40amJune 2024 2:04pmHydrochlorothiazide 25 mg wegdujCrwjtvpmmtdc60JOCKYyoer56195Hbvwyiqk 20th, 2024 10:40amJuly 2024 11:56amLosartan 25 mg vjoyswOpesgwzihrdq53BAHCVodoh77943Hixztvyx 20th, 2024 10:40amJuly 2024 11:56amPotassium Chloride 20 mEq tablet extended release Fllybfwyxtpd54VOJMBObpyo27985Jziglqyu 20th, 2024 10:40amJuly 2024 11:58am Omeprazole 20 mg capsule,delayed release(DR/EC)Odaqpinkwuei63ZOPDJrfjsMkwp 2024 12:00amJuly 2024 11:58amMelatonin 3 mg dzinncjAnyehv2JZJKNecva at bedtime as neededJuly 2024 12:00amComplies with drug therapyOmeprazole 20 mg capsule,delayed release(DR/EC)Aklbfyxuozed78SYKRLeleiWwur 2024 11:57am May 29, 2025 12:22pmLosartan 25 mg edmradUpevkbqijyhf63NPJROfafbKccf 2023 10:11amJune 2023 12:43pmAllopurinol 300 mg dqanlmChtnzdxdzngt197PWER DailyJune 2023 10:35amJune 2023 12:41pmLutein-Zeaxanthin 25-5 mg czjdbjuVelcxs3JLDGWToafxRbiu 2023 12:00amComplies with drug therapy Cyanocobalamin (Vitamin B-12) 1,000 mcg sirefrmQffwqd5936YCDXDNetulOatm 2023 12:00amComplies with drug therapyAscorbic Acid (Vitamin C) 1,000 mg tablet Wrniuqvvivdy1CHEUXuuhhQfmw 2023 12:00amJuly 2024 12:24pmPotassium 20 mg tablet,rvwlhcjyRxiljuipbbjv03UTEDIbmdxAqjc 2023 12:00amJune 2023 12:44pmAllopurinol 300 mg uqobkwZnbfhplempyp521XRYOAgxvk31146Drrr 2023 12:40pmDecember 2023 10:37amAmlodipine 5 mg fsueqeVcovztadcizl0RTRIPrzrd klina328148Amlh 2023 12:41pmAugust 2023 11:44amAtorvastatin (Lipitor) 40 mg hdzkobIqvllthspctd13IVITDxkyb87341Qrri 2023 12:41pm October 24, 2024 10:37amEtodolac 500 mg tnfoeeMyawgnfcdiro437FQWXPjedq daily 358580Xhvw 2023 12:42pmDecember 2023 10:37amHydrochlorothiazide 25 mg resnhtOxwetdthglyx74YHNZYkxem70891Loti 2023 12:42pmDecember 2023 10:37amLosartan 25 mg mvizeiSnrrmkwxlpko93NZCCWabkf48532Ncdc 2023 12:42pm October 24, 2024 10:37amPotassium Chloride 20 mEq tablet extended release Dcdmzzmmaudt36YFSFWSmydf88241Geyz 2023 12:00amDecember 2023 10:37am Trospium 20 mg kjigroBxcfsfubybca86AMCAKdszn dailyApril 2024 12:00amJun2024 2:05pmadminister on an empty stomachMirabegron (Myrbetriq) 50 mg tablet extended release 24 vpVflhar06PPFRXxpcp62507Ehkvu 2024 12:00am Complies with drug therapyAcetaminophen 500 mg viivsotOkdxit9247SYJZLypdz 6 hours as neededJun2024 12:00amComplies with drug therapyMirtazapine 45 mg wvfvehIttjawqbznrs92XXKJXqnwy at bedtimeJune 2024 12:00amJun2024 4:47pmPotassium Chloride 20 mEq tablet extended wigaifrTbevnsqclebi21TBRBY Twice dailyJuly 2024 11:57amJuly 2024 12:57pmHydrochlorothiazide 25 mg hazltpBbhygljoqrvu54ZOYMSsgqq865Yalb 2024 12:00amAugust 2024 1:28pmOmeprazole 40 mg capsule,delayed release(DR/EC)Akijxu04MGVPZvmaz82527Ywwp 2024 12:21pmComplies with drug therapy Immunizations Immunization Event Date Not Given Reason Dose Number [employer] Specialist Lot Number Reason(s) Given Vaccine Information Statement (VIS) Detail Administration Location COVID-19 mRNA, Comirnaty ([employer]) December 28, 2020 COVID-19 mRNA, Comirnaty ([employer])January 03OVID-19 mRNA, Comirnaty ([employer])January 25OVID-19 mRNA, Comirnaty ([employer])October 03, 2021 COVID-19 mRNA Bivalent Booster ([employer])August 27, 2022Fluzone TIV High-Dose 65YR+October 24, [id number] [facility]in[facility], unspecified formulationOctober neumococcal Conjugate Vaccine, 13 valentOctober 2016Pneumococcal Polysacc. Vaccine, 23 valentSeptember 2013 Medical Equipment Device Date Implanted Device Details CL CLOSURE DEVICE EXOSEAL 6F June 16, 2019 CL STENT ADRIANO 4.0 X 12August 2018 Relevant Diagnostic Tests and/or Laboratory Data Laboratory Results Test Collection Date/Time Result Date/Time Result Interpretation Reference Range Result Comment Performing Site Cholesterol/HDL Ratio June 18, 2025 9:25am June 9:25am 2.3 3.3 - 4.4 LOW RISK4.4 - 7.1 AVERAGE RISK7.1 - 11.0 MODERATE RISK>11.0 HIGH RISK [place]olesterol [place] 2024 9:25[facility]2024 9:94an831 mg/dL<=200 HDL CholesterolSim[place] 2024 9:25[facility]2024 9:25am57 mg/dL40-60> or =60 mg/dl - LOW CARDIOVASCULAR RISK<40 mg/dl - HIGH CARDIOVASCULAR RISKLDL Cholesterol, CalculatedAuminers' [facility]2024 9:25[facility]2024 9:25am57.0 mg/dL<100 mg/dl KVYCALR677-268 mg/dl NEAR OR ABOVE MLXZHQN267-276 mg/dl BORDERLINE THVY670-569 mg/dl HIGH>190 mg/dl VERY HIGHTriglycerides LevelWellmont [facility]2024 9:25[facility]2024 9:25am80 mg/dL<=150VLDL [place]olesterolSim[place] 2024 9:[facility]2024 9:25am16.0 mg/dL Vital Signs Vital Reading Result Reference Range Collection Date/Time Weight 106.65 kg August 20, 2025 9:41amHeart Rate71 /cpl58-804Hxsyycp 2024 9:41amOxygen saturation by Pulse ehtmduro92 %95-100[facility] 2024 9:41amBP Dbmoyunn999 mm[Hg]100-140[facility] 2024 9:41amBP Rtotihfka52 mm[Hg]60-100[facility] 2024 9:07vtZfolcd27 [in_i]August 31, 2025 10:84tlBkvdey061.50 kgAsc[facility] 2024 10:23amBody Eaxfrcnakdo44.2 [degF]97.6-99.0[facility] 2024 10:23amHeart Rate72 /hzd22-826Okjsuuu 2024 10:23amOxygen saturation by Pulse oximetry 97 %95-100[facility] 2024 10:23amBP Voomvnnz388 mm[Hg]100-140[facility] 2024 10:23amBP Tfnvxcnem73 mm[Hg]60-100[facility] 2024 10:23amBMI (Body Mass Index)28.8 kg/a6Zcflbbi 2024 10:23am Advance Directives Advance Directive Response Recorded Date/ Time Advance Directives No June 30, 2017 12:34pm Insurance Providers Guarantor Edvin Tsai Address [address] [place] [id number] Info.Home Phone: Payer Group Member ID Coverage Type Subscriber Relationship to Subscriber Effective Date Expiration Date [employer] [facility] PFFS [id number] Johnson Id: [id number] [address] [place] [phone] Home Phone: Email: [email or web address] Encounters Encounter Location(s) Arrival/Admit Date Discharge/Departure Date Discharge/Departure Disposition Provider(s) Non-patient / Non-visit -[facility] Professional [facility] 2024 9:25am Sima Pate MD FACCDeparted Physician/Provider Office Visit-[facility] 10:05amDischarged to home care or self care (routine discharge)Sima Adameeparted Physician/Provider Office Visit-[facility] 2024 11:07amDischarged to home care or self care (routine discharge)Devang Keyes DO Recent Diagnosis Onset Date Admit Date Bradykinesia Unknown August 20 9:23am Delirium Unknown August 20 9:23am DDD (degenerative disc disease), lumbar Unknown August 20, 2025 9:23am ASHD (arteriosclerotic heart disease) Unknown August 31, 2025 10:21am Delirium Unknown August 31 10:21am Generally unsteady Unknown August 31, 2025 10:21am Hypercholesterolemia Unknown August 10:21am Impaired fasting glucose Unknown August 31, 2025 10:21am Lumbar spondylosis with myelopathy Unknown August 31, 2025 10:21am Polyneuropathy Unknown August 31 10:21am Primary hypertension Unknown August 10:21am Screening PSA (prostate specific antigen) Unknow n August 31, 2025 10:21am Assessments Diagnosis Onset Date Resolution Status Admit Date Bradykinesia acuteOctober 2024 9:23amDeliriumacuteOctober 2024 9:23amDDD (degenerative disc disease), lumbarinactiveOctober 2024 9:23amASHD (arteriosclerotic heart disease)acuteOctober 2024 10:21amDeliriumacute August 31, 2025 10:21amGenerally unsteadyacuteOctober 2024 10:21am HypercholesterolemiaacuteOctober 2024 10:21amImpaired fasting glucoseacute August 31, 2025 10:21amLumbar spondylosis with myelopathyacuteOctober 2024 10:21amPolyneuropathyacuteOctober 2024 10:21amPrimary hypertension acuteOctober 2024 10:21amScreening PSA (prostate specific antigen)acute August 31, 2025 10:21am Plan of Treatment Author Mesfin Paez [facility] HospitalAuthoredOctober 2024 10:01amIt is my impression that the patient had an episode of altered mental status secondary to delirium/urinary tract infection. MRI of the brain, routine EEG and transfer to [facility] for video EEG were unremarkable for cause. Some of the patient's hallucinations may have been secondary to anesthesia as well as the patient really did have hallucinations for quite a few weeks after lumbar spine surgery that was conducted at [facility]. However, the length of time that the episode lasted makes me think that more likely related to the recent UTI. The seem to now have resolved. The patient is undergoing rehab at the [facility] for his recent spine surgery. Plan: Monitor clinically If hallucinations recur, I would suggest checking the patient for metabolic process such as UTI right away Should the mental status worsen we can certainly further investigate with neuropsych testing Patient has recently undergone lumbar spine surgery at [facility]. He had a delirium episode shortly thereafter. Plan: Close follow-up with neurosurgery Patient does have some bradykinesia in the left upper extremity. I do not see tremor or rigidity. The patient has gait instability but he also has an extensive history of spine disease and recent lumbar spine surgery. This is a new issue identified today. This will need careful monitoring over time. Plan: Monitor for any transition into Parkinson's disease. Author Devang Keyes [facility] HospitalAuthoredOctober 2024 10:59amThis patient is stable without activity related chest pain, dyspnea or lightheadedness. I instructed them to continue exercise at least 3x weekly and consume a low salt, low fat, high fiber diet. I instructed them to continue secondary prevention measures in reducing risks for recurrent events. PCI/stent RCA - 06/2019 , Echo: LVEF 55%, JUSTINO, normal RV size/function, RVSP 21, Ao 4.7cm - [id number] Continue ASA and Atorvastatin without interruption I have instructed this patient to consume a healthy, low-fat, low-salt diet. I have also encouraged them to continue exercise with weight loss to achieve/maintain a BMI < 30. I have instructed this patient on the correct procedure for obtaining home BP measurements:? - rest for 5 minutes w/o talking. - positioned w/ feet on floor and arms supported. - average best 2/3 readings w/ goal < 135/85. - update office w/ home readings in 2 weeks. Continue Amlodipine and Losartan without interruption I have instructed this patient to avoid bending, twisting or lifting. I have also instructed on use of intermittent heat and ice as needed. They may schedule a massage or gentle manipulation. I instructed them on the safe use of Tylenol, Lidocaine and stretching exercises. I informed them of alternative modes of treatment for severe pain, which may include referral to physical therapy or pain management. s/p lumbar fusion 03/2025 - complicated by delirium, which was secondary to anesthesia and infection Re-establish care w/ Neurology for progressive unsteadiness - due to lumbar myelopathy and peripheral polyneuropathy Fall precautions. Use assistive device for stability. Continue HEP f/u Neurology Secondary to anesthesia and intercurrent infection. Stop Seroquel and continue Melatonin f/u Neurology Fall precautions, inspect feet daily for cuts. Instructed on use of assistive device for all MRADL Somewhat secondary to lumbar spondylosis w/ nerve impingement. Failed benefit from PT or injections His A1C is between 5.7-6.5%. Instructed on low carb, high fiber diet. Instructed on routine exercise program for 30-60min three times weekly. Instructed on correlation between obesity and insulin resistance and encouraged to lose weight. Monitor A1C every 6 months. I have instructed this patient on a low fat, high fiber diet and exercise. I have discussed the primary and secondary prevention benefits attributed to lowering LDL cholesterol. I have also discussed the medical treatment of elevated cholesterol, which is based on the 10 year ASCVD risk. I have recommended yearly PSA testing. I have informed him that the PSA can be elevated w/ cancer, infection and enlarged prostates. I have explained to the patient, that If his PSA is elevated, while there are many causes, referral will be recommended to r/o cancer. He would be referred to Urology, who may recommend an MRI, TRUS/bx or possibly continued monitoring. He is agreeable to this plan of action Future Tests Future scheduled test information is unavailable Pending Tests Test Name Ordered Date Scheduled Date Comprehensive Metabolic Panel August 31, 2025 10:52am Future Visits Future appointment information is unavailable Future Procedures Procedure Name Ordered Date Scheduled Date A1C with Estimated Average Glu August 31 10:54am Complete Blood Count Auto DiffOctober 2024 10:52amLipid PanelOctober 2024 10:52amFlu Vaccine High Dose PF 65Y+ IM - FluzoneOctober 2024 10:21amPSA Screen (Yearly Only)August 31, 2025 10:52am Future Medications Future medication information is unavailable Patient Instructions Patient instructions are unavailable
--- OUTSIDE RECORDS SUMMARY | 2025-09-02 09:04 | XMS_ITS | Clinical Summary ---
Author Organization [employer] [facility] Address [id number] [place] [address] Care Team Providers Care Sales Project Administrator Name Role Phone WaliDevang Iwona REYNA Primary Care Provider [phone] Allergies Active AllergyReactionsCriticalityNoted BurxLzklhzpcDdjxcwvok16/25/2022 Not allergic but does not want this Medications MedicationSigDispense QuantityRefillsLast FilledStart DateEnd DateStatus amLODIPine (NORVASC) 2.5 mg tablet Take 2 tablets (5 mg total) by mouth in the morning.Active hydroCHLOROthiazide (HYDRODIURIL) 25 mg tablet Take 1 tablet (25 mg total) by mouth daily.Active calcium carbonate-vitamin D3 (CALCIUM 500 + D) 500 mg(1,250mg) -200 units per tablet Take 1 tablet by mouth in the morning and 1 tablet in the evening. Take with meals.Active LUTEIN-ZEAXANTHIN ORAL Take by mouth.Active atorvastatin (LIPITOR) 40 mg tablet Take 1 tablet (40 mg total) by mouth in the morning.Active allopurinoL (ZYLOPRIM) 300 mg tablet Take 1 tablet (300 mg total) by mouth in the morning.Active cyanocobalamin (vitamin B-12) 1000 MCG tablet Take 1 tablet (1,000 mcg total) by mouth in the morning.Active ascorbic acid, vitamin C, (VITAMIN C) 1000 mg tablet Take 1 tablet (1,000 mg total) by mouth in the morning.Active potassium chloride (KLOR-CON M) 20 MEQ CR tablet Take 1 tablet (20 mEq total) by mouth in the morning and 1 tablet (20 mEq total) before bedtime.Active mirabegron (MYRBETRIQ ORAL) Take by mouth.Active melatonin (CIRCADIN) 5 mg tablet Take 1 tablet (5 mg total) by mouth nightly.5Active QUEtiapine (SEROquel) 25 mg tablet Take 1 tablet (25 mg total) by mouth nightly as needed ().04/28/2025 Active aspirin 81 mg Take 1 tablet (81 mg total) by mouth in the morning. 28 tablet 5Active Active Problems ProblemNoted DateDiagnosed DateRight knee pain02/13/2022 Resolved Problems ProblemNoted DateDiagnosed DateResolved DateAltered mental rlfdcz4204/23/2025 04/28/2025 Immunizations ImmunizationAdministration DatesNext DueCOVID-19, mRNA, LNP-S, PF, 30mcg/0.3mL Dose12/28/2020 Family History Medical HistoryRelationNameCommentsCancerFatherDiabetesMotherNo Known Problems SisterRelationNameStatusCommentsFatherMotherSister Social History Tobacco UseTypesPacks/DayYears UsedDateSmoking Tobacco: FormerCigarettes Smokeless Tobacco: Never Tobacco Cessation:Counseling Given: Not Answered Comments:Smoked about 2 packs a day in 80s Alcohol UseStandard Drinks/WeekCommentsYes1 (1 standard drink = 0.6 oz pure alcohol)dailyAHC UtilitiesAnswerDate RecordedIn the past 12 months has the [facility], gas, oil, or water [employer] threatened to shut off services in your home?No04/23/2025UDIT-CAnswerDate RecordedQ1: How often do you have a drink containing alcohol?4 or more times a week04/23/2025Q2: How many drinks containing alcohol do you have on a typical day when you are drinking?1 or 2 04/23/2025Q3: How often do you have six or more drinks on one occasion?Less than nexmyzk7304/23/2025Overall Financial Resource Strain (CARDIA)AnswerDate Recorded How hard is it for you to pay for the very basics like food, housing, medical care, and heating?Not hard at all04/23/2025PRAPARE - 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AnswerDate RecordedIn the past 12 months, has lack of transportation kept you from medical appointments or from getting medications?No04/23/2025In the past 12 months, has lack of transportation kept you from meetings, work, or from getting things needed for daily living?No04/23/2025Housing InstabilityAnswerDate RecordedAre you worried or concerned that in the next two months you may not have stable housing that you own, rent or stay in as a part of a household?No04/23/2025 Hunger ScreeningAnswerDate RecordedWithin the past 12 months we worried whether our food would run out before we got money to buy more.Never True04/23/2025 Within the past 12 months the food we bought just didn't last and we didn't have money to get more.Never True04/23/2025Sex and Gender InformationValueDate RecordedSex Assigned at BirthNot on fileLegal AzvNghl3101/13/2022 1:02 PM EST Gender QselnytqQspu53/20/2023 7:17 PM ESTSexual ZzsflsabzioBvksmaaa89/20/2023 7:17 PM EST Last Filed Vital Signs Vital SignReadingTime TakenCommentsBlood Vvwsgibe175/68004/29/2025 8:15 AM EDT Gaasp914404/29/2025 8:15 AM MLZWflliozlqfa98.4 ??C (97.5 ??F)04/29/2025 8:15 AM EDTRespiratory Izya869204/29/2025 8:15 AM EDTOxygen Pbxotjhakp28%04/29/2025 8:15 AM EDTInhaled Oxygen Concentration--Ppqsva978.4 kg (236 lb 12.4 oz)04/27/2025 9:09 PM OETDqorib042 cm (6' 4 )04/23/2025 2:58 PM EDTBody Mass Index28.82 04/23/2025 2:58 PM EDT Plan of Treatment Health MaintenanceDue DateLast DoneCommentsDepression Kubcsnklk45/02/1958Zoster (Shingles) Vaccine (1 of 2)1996Fall Risk Frjrebxhb99/02/2011COVID-19 Vaccine ( season), 10/03/2021, 01/25/2021, Additional history existsInfluenza Oyeqiff81/01/425175/, 08/20/2023, 08/14/2022, Additional history existsTobacco Gpuccigkc04/19/275362/ DTaP,Tdap and Td Vaccines (2 - Tdap)/02/2021 Goals GoalPatient Goal TypeAssociated ProblemsRecent ProgressPatient-Stated?Author <enter goal here> Marjorie Montejo RN Note: Evaluation of progress towards goal: safe discharge pending clinical progress Medical Devices ImplantedTypeAreaManufacturerDevice IdentifierShelf Expiration DateModel / Serial / LotCement Bn Bio 40gm Rpl [id number] - Sna - [id number] Implanted:Qty: 2 on 02/14/2022 by [facility] Jr[facility] KneeZimmer [id number]/ [id number] / NA / [id number] Ptlr 38mm Persona Alply Kn Strl Lf - Sna - [id number] Implanted:Qty: 1 on 02/14/2022 by Perry Garay Jr., DO at [facility] ImplantRight: KneeZimmer Biomet [id number] / NA / [id number] Artc 7-10 G-H 12mm Kn Fx Brng Prlng Nxgn Lpsflx Strl Rpl [id number] + [id number] - Sna - [id number] Implanted:Qty: 1 on 02/14/2022 by Perry Garay Jr., DO at [facility] ImplantRight: KneeZimmer Bi[employer] [id number] / NA / [id number] Fem G Kn Rt Cmnt Nxgn Lpsflx Opt Zml Prlng Strl Rpl [id number] + [id number] - Sna - [id number] Implanted:Qty: 1 on 02/14/2022 [facility] Im[facility]Right: KneeZimmer Biomet [id number]/29/[id number] / NA / [id number] Tib 50e75us Nxgn Kn Cmnt Mdlr Stm Prect 8 Tiv Pmma Rpl [id number] + [id number] - Sna - [id number] Implanted:Qty: 1 on 02/14/2022 by [facility] KneeZimmer [id number]/31/2028 83-3916-124-02 / NA / [id number]mfzbjBwimwi IdentifierShelf Expiration DateModel / Serial / LotScrew Bn 35mm 6.5mm St Hip Actb Trlg Strl Rpl [id number] + [id number] + 32 - Sna - [id number] Explanted:Qty: 1 on 02/14/2022 by [facility] Jr[facility]: KneeZimmer [id number] / NA / [id number] Bn 35mm 6.5mm St Hip Actb Trlg Strl Rpl [id number] + [id number] + 32 - Sna - [id number] Explanted:Qty: 1 on 02/14/2022 by [facility] Jr. [facility]: KneeZimmer [id number] / NA / [id number] Gd 48mm Qd-Spr Hex Hd Mis Strl - Sna - [id number] Explanted:Qty: 2 on 02/14/2022 by Perry [facility] Jr. DO [facility]: KneeZimmer [id number] / NA / [id number] Insurance Advance Directives * Full Code (Latest Code Status on File) Date ActivatedDate InactivatedComments04/23/2025 12:11 AM04/29/2025 12:45 PM * Full Code Date ActivatedDate InactivatedComments02/14/2022 5:01 PM02/15/2022 5:17 PM Care Teams Team MemberRelationshipSpecialtyStart DateEnd Date Devang Keyes DO [address] [place] [address] PCP - GeneralInternal Medicine01/27/22
--- OUTSIDE RECORDS SUMMARY | 2025-09-02 09:04 | XMS_ITS | Clinical Summary ---
Author Organization [facility] Address [address] [place] [address] Care Team Providers Care Telegraph Repeater Technician Name Role Phone Wali Devang Iwona REYNA Primary Care Provider [phone] Allergies No known active allergies Medications MedicationSigDispense QuantityRefillsLast FilledStart DateEnd DateStatus amLODIPine (NORVASC) 5 mg tablet Take 5 mg by mouth.07/02/2017Active allopurinol (ZYLOPRIM) 100 mg tablet 04/12/2020Active aspirin, enteric coated (ASPIRIN, ENTERIC COATED) 81 mg EC tablet Take 81 mg by mouth.Active clopidogrel (PLAVIX) 75 mg tablet Take 75 mg by mouth.06/16/2019Active hydroCHLOROthiazide (HYDRODIURIL, ESIDRIX) 25 mg tablet Take 25 mg by mouth.07/02/2017Active calcium carbonate/vitamin D3 (CALCIUM 600 + D ORAL) Take by mouth. Daily PMActive lutein-zeaxanthin 25-5 mg cap Take by mouth. amActive cyanocobalamin (VITAMIN B-12) 1,000 mcg tab Take 1,000 mcg by mouth once daily.Active Ascorbic Acid (VITAMIN C) 1,000 mg tablet Take 1,000 mg by mouth once daily.Active tolterodine (DETROL) 2 mg tablet Take 2 mg by mouth twice daily.Active Family History Medical HistoryRelationCommentsMultiple SclerosisDaughter 1Multiple Sclerosis Daughter 2RelationStatusCommentsDaughter 1Daughter 2 Social History Tobacco UseTypesPacks/DayYears UsedDateSmoking Tobacco: FormerSmokeless Tobacco: NeverAlcohol UseStandard Drinks/WeekCommentsNot Currently0 (1 standard drink = 0.6 oz pure alcohol)PHQ-2AnswerDate RecordedPHQ-2 exmdu565/20/2020Area Deprivation IndexAnswerDate RecordedNational Score (1-100), lower number is lower riskNot on file10/13/2020State Score (1-10), lower number is lower riskNot on file10/13/2020Data from: https://www.neighborhoodatlas.[facility]/. Last address used for calculationNot on file10/13/2020Sex and Gender Information ValueDate RecordedSex Assigned at BirthNot on fileLegal QsqApjh8507/19/2015 11:52 AM EDTGender IdentityNot on fileSexual OrientationNot on file Last Filed Vital Signs Vital SignReadingTime TakenCommentsBlood Easyldvn295/7306 8:16 AM EDT Yzjwv387304/19/2021 8:16 AM EDTTemperature--Respiratory Rate--Oxygen Saturation-- Inhaled Oxygen Concentration--Ihtnnu865.7 kg (255 lb)06/25/2020 7:53 AM EDT Ycvwll145 cm (6' 4 )06/25/2020 7:53 AM EDTBody Mass Index31.0408 7:53 AM EDT Plan of Treatment Health MaintenanceDue DateLast DoneCommentsAnxiety Fonibrjhg17/02/1964Depression Xggovbteg02/02/1964Hepatitis C Bpdvbtgch29/02/1964DTaP,Tdap,Td Vaccine (1 - Tdap)1965Pneumococcal Vaccine: 50+ (1 of 1 - PCV)1996Shingrix Vaccine (1 of 2)1996RSV Vaccine (1 - 1-dose 75+ series)1Diabetes Erzfiripv48, 04/12/2018, 04/11/2018, Additional history exists Advance Directive Jrpnxtkowi47/01/2025ovid-19 Vaccine (1 - 2024- season) 2025Influenza Vaccine (#1) Procedures Procedure NamePriorityDate/TimeAssociated DiagnosisCommentsHEMOGLOBIN Q3GGtimfsf 07/27/2020 11:05 AM EDT Idiopathic peripheral neuropathy Spinal stenosis, lumbar region, without neurogenic claudication from Last 3 Months or Most Recently Relevant to Health Maintenance Results * (ABNORMAL) HGB A1C (07/27/2020 11:05 AM EDT)ComponentValueRef RangeTest Method Analysis TimePerformed AtPathologist SignatureHemoglobin A1C5.8(H)4.3 - 5.6 % 07/27/2020 6:25 PM EDTCadena fayette medical centerand Clinic LaboratoriesComment: [place] Diabetes Association guidelines indicate that patients with HgbA1c in the range 5.7-6.4% are at increased risk for development of diabetes, and intervention by lifestyle modification may be beneficial. HgbA1c greater or equal to 6.5% is considered diagnostic of diabetes. Estimated Average Roxpgum609sx/dL07/27/2020 6:25 PM EDTCMagruder Memorial Hospital LaboratoriesComment: eAG: (Estimated average glucose) is a calculated value from HgbA1c and is customer relations representative of the average blood glucose level in the last 2-3 month period. Specimen (Source)Anatomical Location / LateralityCollection Method / Volume Collection TimeReceived TimeBloodWHOLE BLOOD SPECIMEN / Xocmfrk3107/27/2020 11:05 AM EDT07/27/2020 11:07 AM EDT Narrative Authorizing ProviderResult TypeResult StatusJennhesham Nguyen MDLABORATORYFinal ResultPerforming OrganizationAddressCity/State/ZIP CodePhone Number [facility] [address] [place] [address] [facility] [address] [place] [address] from Last 3 Months or Most Recently Relevant to Health Maintenance Insurance Care Teams Team MemberRelationshipSpecialtyStart DateEnd Date Devang Keyes DO PCP - GeneralInternal Medicine07/19/15
--- OUTSIDE RECORDS SUMMARY | 2025-09-02 09:04 | XMS_ITS | Clinical Summary ---
Author Organization [facility] Address [address] [facility] [place] [address] Care Team Providers Care Market Editor Name Role Phone Devang Keyes DO Primary Care Provider [phone] Allergies Active AllergyReactionsCriticalityNoted DateCommentsDuloxetine HclHallucinations 07/15/2024Hydrocodone-SfsmqyosxqavoQwirmptrappmji16/08/8042Ktyrtkfvi34/08/2023 Other Reaction(s): Hallucinations Medications MedicationSigDispense QuantityRefillsLast FilledStart DateEnd DateStatus Potassium 75 MG tablet PotassiumActive allopurinol (Zyloprim) 300 MG tablet 1 (one) time each day at the same time.Active amLODIPine (Norvasc) 5 MG tablet 1 (one) time each day at the same time.Active Ascorbic Acid (Vitamin C) 500 MG capsule as directed OrallyActive aspirin 81 MG chewable tablet 1 (one) time each day at the same time.Active atorvastatin (Lipitor) 40 MG tablet 1 (one) time each day at the same time.Active calcium carbonate 1500 (600 Ca) MG tablet 1 (one) time each day at the same time.Active hydroCHLOROthiazide (HYDRODiuril) 25 MG tablet 1 (one) time each day at the same time.Active Lutein-Zeaxanthin 25-5 MG capsule OrallyActive trospium (Sanctura) 20 MG tablet every 12 (twelve) hours.Active losartan (Cozaar) 25 MG tablet Take by mouthActive amoxicillin (Amoxil) 500 MG tablet Indications:History of total right knee replacement4 tabs PO once 30-60 mins before procedure with food 4 tablet 309/03/2024Active mirabegron ER (Myrbetriq) 50 MG 24 hr tablet Take 50 mg by mouth Daily4Active KLOR-CON 20 MEQ ER tablet 07/28/2024ctive omeprazole (PriLOSEC) [address] capsule 0 Refill(s)5Active melatonin (Melatonin Maximum Strength) 5 MG tablet Take 5 mg by mouth at zfrnwnu70/24/2025Active Active Problems ProblemNoted DateDiagnosed DateDry eyes03/27/2025Optic vmszqmt7403/27/2025 Blepharitis of upper and lower eyelids of both eyes03/27/2025Drop foot gait 11/12/20244373Lhofhxuvpcj85/09/1720Pjlsfifvjwmlav76/09/2024hronic inflammatory demyelinating sqqpngqfvi07/09/2024 Overview (07/14/2024): paresthesia, weakness and ataxia. EMG [...] overall improving. Arthritis of finger of left hand03/12/2023rtificial knee joint present 03/12/2023ilateral ylduthsxdulv59/08/2023ermatochalasis of left upper eyelid 03/12/2023ifficulty glvrwbx6503/12/2023Excess skin of csnjth6003/12/2023 Osteoarthritis of finger of left hand03/12/2023Osteoarthritis of right knee 03/12/2023Finger pain, right03/12/2023ain of finger of left hand03/12/2023oor ocqxwpg2403/12/2023Shoulder awgehwaom49/08/2023Internal derangement of right mhlisacx76/08/2023Sprain of right rotator cuff fariear9103/12/2023Status post total right knee wxlvebkkgqo18/08/2023 Resolved Problems ProblemNoted DateDiagnosed DateResolved DateBilateral posterior capsular kmieupssmliyc42 Encounters DateTypeDepartmentCare WymkWcmonoofghh92/17/2025 9:30 AM EDTOffice Visit [facility] [address] [place] [phone] Adolph Schultz, Dry eyes (Primary Dx); Blepharitis of upper and lower eyelids of both eyes, unspecified type07/22/2025 Bamboo flowsheet [facility] [address] [place] [phone] Adolph Schultz, 07/22/20254351Gkmhdh51/29/2025 10:10 AM EDTAncillary Procedure [facility] [place] [address] 06/02/2025 10:05 AM EDTAncillary Procedure [facility] [place] [address] 06/02/2025 9:45 AM EDTOffice Visit [place] [address] [place] [phone] Telly Montes PA Acute pain of left knee (Primary Dx); Acute pain of left shoulder; Arthritis of left knee; Impingement of left rzvssluf51/29/2025amboo flowsheet [facility] [address] [place] [address] Telly Montes PA 06/02/2025Travelfrom Last 3 Months Immunizations ImmunizationAdministration DatesNext DueInfluenza, High-dose Seasonal, Quadrivalent, Preservative Free07/01/2021Influenza, injectable, quadrivalent, preservative free08/17/2017,08/05/2016Pfizer Purple Cap SARS-CoV-2 Vaccination 1Pneumococcal Conjugate PCV 131Pneumococcal Polysaccharide LRDK3026 Family History Medical HistoryRelationNameCommentsBrain cancerFatherDiabetesMotherRelationName StatusCommentsFatherDeceasedMotherDeceased Social History Tobacco UseTypesPacks/DayYears UsedDateSmoking Tobacco: FormerCigarettes Smokeless Tobacco: Never Tobacco Cessation:Counseling Given: Not Answered Alcohol UseStandard Drinks/WeekCommentsYes0 (1 standard drink = 0.6 oz pure alcohol)caffeine 2-3 cups/daySex and Gender InformationValueDate RecordedSex Assigned at BirthNot on fileLegal FwrOhyy5101/17/2023 6:47 PM EDTGender Identity Not on fileSexual OrientationNot on file Last Filed Vital Signs Vital SignReadingTime TakenCommentsBlood Zltovmju505/8209 8:47 AM EDT Dregd0760 8:47 AM EDTTemperature--Respiratory Rate--Oxygen Godiwdwvfb33% 07/15/2024 8:47 AM EDTInhaled Oxygen Concentration--Uuklht128 kg (237 lb) 07/15/2024 8:47 AM HGOGokfgh701 cm (6' 4 )07/15/2024 8:47 AM EDTBody Mass Index 28.85007/15/2024 8:47 AM EDT Plan of Treatment DateTypeDepartmentCare Team (Latest Contact Info)Dbijyezktus31/07/2026 10:15 AM ESTOffice Visit [facility] [address] [place] [phone] Jr. Perry Garay, DO [address] [place] [address] 07/28/2026 9:30 AM EDTOffice Visit [facility] [address] [place] [address] Adolph Schultz, DO [address] [place] [address] Health MaintenanceDue DateLast DoneCommentsInfluenza Vaccine (#1)07/06/2025 10/24/2024, 08/20/2023, 08/14/2022, Additional history existsPneumococcal Vaccine: 65+ DorysOsbkjeurm61/20/2017, 07/06/2014 Procedures Procedure NamePriorityDate/TimeAssociated DiagnosisCommentsPR ARTHROCENTESIS ASPIR&/INJ MAJOR JT/BURSA W/O UTCwrjzqi13/29/2025 10:48 AM EDT Impingement of left shoulder DC ARTHROCENTESIS ASPIR&/INJ MAJOR JT/BURSA W/O XVIqhjkew56/29/2025 10:47 AM EDT Arthritis of left knee XR SHOULDER 2+ VIEWS RPOHLwurixh21/29/2025 10:07 AM EDT Acute pain of left shoulder XR KNEE 1-2 VIEWS KPOQSgvzgfc22/29/2025 10:03 AM EDT Acute pain of left knee from Last 3 Months Results * DC ARTHROCENTESIS ASPIR&/INJ MAJOR JT/BURSA W/O US (06/02/2025 10:48 AM EDT) Telly Wright PA - 06/02/2025 10:48 AM EDT AYAN Jacobs 06/02/2025 12:36 PM L Inj/Asp: L subacromial bursa on 06/02/2025 10:48 AM Indications: pain Details: 21 G needle, posterior approach Medications: 40 mg methylPREDNISolone acetate 40 MG/ML Outcome: tolerated well, no immediate complications Utilizing aseptic technique with universal precautions . Pt given injection Left Shoulder SA space ( code 67175 LT) Procedure, treatment alternatives, risks and benefits explained, specific risks discussed. Consent was given by the patient. Patient was prepped and draped in the usual sterile fashion. Authorizing ProviderResult TypeResult StatusMatttevin Montes PAIN CLINIC/BEDSIDE ORDERABLESFinal Result * DC ARTHROCENTESIS ASPIR&/INJ MAJOR JT/BURSA W/O US (06/02/2025 10:47 AM EDT) Telly Wright PA - 06/02/2025 10:47 AM EDT AYAN [...] discussed. Consent was given by the patient. Authorizing ProviderResult TypeResult StatusWymonique Montes PAIN CLINIC/BEDSIDE ORDERABLESFinal Result * XR shoulder 2+ views left (06/02/2025 10:07 AM EDT)Anatomical RegionLaterality ModalityUpper Extremities, ShoulderLeftRadiographic ImagingSpecimen (Source) Anatomical Location / LateralityCollection Method / VolumeCollection Time Received Time Narrative 06/02/2025 12:36 PM EDT Imaging Result: [...] process left shoulder with AC joint arthritis Authorizing ProviderResult TypeResult StatusMamonique Montes PAIMG XR PROCEDURES Final Result * XR knee 1 or 2 views left (06/02/2025 10:03 AM EDT)Anatomical RegionLaterality ModalityLower Extremities, KneeLeftRadiographic ImagingSpecimen (Source) Anatomical Location / LateralityCollection Method / VolumeCollection Time Received Time Narrative 06/02/2025 12:33 PM EDT Imaging Result: AP and Lateral weight bearing: Bones: The bony structures of the knee, including the distal femur, proximal tibia, and patella, appear normal. Stable mild varus alignment ?There are no fractures, dislocations, or bony lesions noted. , stable appearing AP view of right knee prosthesis. Joint Spaces: The ??medial joint space is narrowed with associated spuring of weight bearing condyles and flattening of articular surface. Most of degenerative changes are patella femoral. Soft Tissues: The surrounding soft tissues appear normal. There is no evidence of soft tissue swelling or calcification. 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
--- OUTSIDE RECORDS SUMMARY | 2025-09-02 09:04 | XMS_ITS | Clinical Summary ---
Author Organization [facility] Address [address] [place] [address] Phone Care Team Providers Care Compensator Worker Name Role Phone Anita Schmid MD Unavailable [phone] Devang Keyes DO Primary Care Provider [phone] Allergies Active AllergyReactionsCriticalityNoted DateCommentsHydrocodone-Acetaminophen Kkehbqgmmkfofr39/08/6480PzcoasoggYspswnhvkznffa75/08/2023 Medications MedicationSigDispense QuantityRefillsLast FilledStart DateEnd DateStatus atorvastatin (Lipitor) 40 mg tablet Indications:Hyperlipidemia, unspecifiedTAKE 1 TABLET BY MOUTH EVERY DAY 90 tablet ctive allopurinol (Zyloprim) 300 mg tablet Take 1 tablet (300 mg) by mouth once daily.05/08/2021ctive aspirin 81 mg chewable tablet Chew and swallow 1 tablet (81 mg) once daily.Active calcium carbonate 600 mg calcium (1,500 mg) tablet every 12 hours.Active cyanocobalamin, vitamin B-12, (Vitamin B-12) 1,000 mcg tablet extended release Take 1 tablet (1,000 mcg) by mouth once daily.Active hydroCHLOROthiazide (HYDRODiuril) 25 mg tablet Take 1 tablet (25 mg) by mouth once daily.01/10/2022ctive LUTEIN-ZEAXANTHIN ORAL Take 1 capsule by mouth once daily.Active Klor-Con M20 20 mEq ER tablet Indications:HypokalemiaTAKE 1 TABLET BY MOUTH EVERY DAY 90 tablet 3054Active Additional Information Patient taking differently:20 mEq oral2 times daily, Reported on 06/17/2025 etodolac (Lodine) 500 mg tablet Take 1 tablet (500 mg) by mouth every 12 hours.Active amLODIPine (Norvasc) 5 mg tablet Take 1 tablet (5 mg) by mouth once daily.Active nitroglycerin (Nitrostat) 0.4 mg SL tablet Indications:Arteriosclerosis of coronary arteryPlace 1 tablet (0.4 mg) under the tongue every 5 minutes if needed for chest pain. 25 tablet 1104Active mirabegron (Myrbetriq) 50 mg tablet extended release 24 hr 24 hr tablet Take 1 tablet (50 mg) by mouth once daily.10/30/2024ctive omeprazole (PriLOSEC) [address] capsule Take 1 capsule (40 mg) by mouth once daily in the morning. Take before meals. 5Active melatonin 5 mg capsule Take 1 capsule (5 mg) by mouth once daily.Active Active Problems ProblemNoted DateDiagnosed DatePre-operative cardiovascular examination 5BMI 28.0-28.9,adult05/22/2024Former ktvcbl8905/22/2024Obesity (BMI 30.0-34.9)11/14/2023bnormal nuclear stress test10/12/2023rteriosclerosis of coronary qjvkmn0410/12/2023alance wthyxxq5410/12/2023PH (benign prostatic hyperplasia)10/12/20239867Mzkgnuuxnfcb28/08/2023Essential tcboqfxcuzaw41/08/2023 Failed back syndrome of lumbar spine10/12/2023Joint pain10/12/2023hysical otjbllyfqqbddp96/08/2023Status post coronary jfdzditkqeb12/08/2023 Encounters DateTypeDepartmentCare CjueTjzyjggpxqj56/14/2025Scanned Document [place] [address] [place] [address] Scanning, Generic Provider 06/17/2025 9:30 AM EDTOffice Visit [facility] [address] [address] Marisol Alas MD Arteriosclerosis of coronary artery; Essential hypertension; Dyslipidemia; Status post coronary angioplasty; BMI 28.0-28.9,adult; Former smoker Discharge Disposition: Home06/17/20251563[place]wyn[place]53/06/2025Travelfrom Last 3 Months Family History Medical HistoryRelationNameCommentsCancerFatherDiabetesMotherHeart diseaseSister RelationNameStatusCommentsFatherMotherSister Social History Tobacco UseTypesPacks/DayYears UsedDateSmoking Tobacco: FormerCigarettesQuit: 1983Smokeless Tobacco: NeverAlcohol UseStandard Drinks/WeekCommentsYes5 (1 standard drink = 0.6 oz pure alcohol)Sex and Gender InformationValueDate RecordedSex Assigned at BirthNot on fileLegal AciPqqb83/25/2022 9:35 AM EST Gender IdentityNot on fileSexual OrientationNot on file Last Filed Vital Signs Vital SignReadingTime TakenCommentsBlood Jgjvwjiw201/7208 9:27 AM EDT Yknmc912306/17/2025 9:27 AM EDTTemperature--Respiratory Cqoz907101/01/2023 12:00 AM ESTOxygen Saturation--Inhaled Oxygen Concentration--Vjhllv124 kg (231 lb) 06/17/2025 9:27 AM CKTArivyk050 cm (6' 4 )06/17/2025 9:27 AM EDTBody Mass Index 28.1208 9:27 AM EDT Plan of Treatment DateTypeDepartmentCare Team (Latest Contact Info)Gmsciyipdxp84/26/2026 9:30 AM EDTOffice Visit [facility] [address] [facility] [address] [place] [address] Marisol Alas MD [address] [facility] [address] [place] [address] Health MaintenanceDue DateLast DoneCommentsLipid Panel1946Hepatitis C Ugcytfoll17/02/1964Zoster Vaccines (1 of 2)1996Diabetes Screening RSV High Risk: (Elderly (60+) or Population) (1 - 1-dose 75+ series)2021Medicare Annual Wellness Visit (AWV)04/29/2025 04/28/2024, 04/30/2023, 04/27/2022Influenza Vaccine (#1), 08/20/2023, 08/14/2022, Additional history existsCOVID-19 Vaccine (2 - 2024- season)2DTaP/Tdap/Td Vaccines (3 - Td or Tdap)05/02/2034 05/02/2024, 1Pneumococcal MulctlbBgvmrtwvw87/20/2017, 11/05/2016, 07/06/2014HIB VaccinesAged OutNo longer eligible based on patient's age to complete this topicHPV VaccinesAged OutNo longer eligible based on patient's age to complete this topicHepatitis A VaccinesAged OutNo longer eligible based on patient's age to complete this topicHepatitis B VaccinesAged OutNo longer eligible based on patient's age to complete this topicIPV VaccinesAged OutNo longer eligible based on patient's age to complete this topicMeningococcal VaccineAged OutNo longer eligible based on patient's age to complete this topic Rotavirus VaccinesAged OutNo longer eligible based on patient's age to complete this topic Procedures Procedure NamePriorityDate/TimeAssociated DiagnosisCommentsOUTSIDE LAB SCAN 06/18/2025 from Last 3 Months Results * OUTSIDE LAB SCAN (06/18/2025) Narrative 06/18/2025 Ordered by an unspecified provider. Authorizing ProviderResult TypeResult StatusGeneric Provider ScanningOUTSIDE SCANFinal Result from Last 3 Months Insurance Care Teams Team MemberRelationshipSpecialtyStart DateEnd Date Devang Keyes DO [address] [place] [address] PCP - GeneralInternal Medicine06/17/25 Anita Schmid MD Referring Physician01/28/25
--- OUTSIDE RECORDS SUMMARY | 2025-09-02 09:04 | XMS_ITS | Clinical Summary ---
Author Organization [facility] Address [address], [address] [place] [address] Care Team Providers Care 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 Specialist Name Role Phone Devang Keyes DO Primary Care Provider [phone] Allergies Active AllergyReactionsCriticalityNoted OqheCgffvfvlXciwtpjvd52/07/2018 Hallucinations Medications MedicationSigDispense QuantityRefillsLast FilledStart DateEnd DateStatus aspirin 81 MG EC tablet Take 81 mg by mouth dailyActive trospium (SANCTURA) 60 MG CP24 extended release capsule Take 60 mg by mouth luzkv330Active pravastatin (PRAVACHOL) 80 MG tablet Take 80 mg by mouth xhzpg208Active amLODIPine (NORVASC) 5 MG tablet Take 5 mg by mouth igsrv588Active hydrochlorothiazide (HYDRODIURIL) 25 MG tablet Take 25 mg by mouth eqtwy853Active gabapentin (NEURONTIN) 100 MG capsule Take 1 capsule by mouth daily for 30 days.. 90 capsule 05/31/2018Active gabapentin (NEURONTIN) 400 MG capsule Indications:Lumbar radiculopathy,Lumbar spondylosis,Lumbar disc herniation,S/P lumbar fusionTake 1 capsule by mouth 3 times daily for 60 days.. 90 capsule Active ibuprofen (ADVIL;MOTRIN) 800 MG tablet TAKE 1 TABLET BY MOUTH TWICE A DAY 90 tablet Active Active Problems ProblemNoted DateDiagnosed DateLumbar ppkhrzenkhv42/07/2018HTN (hypertension) 04/10/20183667Lzpdhoixgbwj47/06/2018HNP (herniated nucleus pulposus), lumbar 04/10/2018BPH (benign prostatic hyperplasia)04/10/2018 Resolved Problems ProblemNoted DateDiagnosed DateResolved DateSpondylosis of lumbar spine Family History Medical HistoryRelationNameCommentsMult SclerosisDaughterx 2both daughters have MSCancerFatherbrain cancerDiabetesMotherCancerSisterx 4bone cancerHeart Disease Sisterx 4RelationNameStatusCommentsBrothernoneDaughterx 2AliveFatherDeceased MotherDeceasedSisterx 4AliveSonnone Social History Tobacco UseTypesPacks/DayYears UsedDateSmoking Tobacco: NeverSmokeless Tobacco: NeverAlcohol UseStandard Drinks/WeekCommentsYes0 (1 standard drink = 0.6 oz pure alcohol)daily / rumSex and Gender InformationValueDate RecordedSex Assigned at BirthNot on fileLegal UoiKbgy7801/23/2018 2:56 PM EDTGender IdentityNot on file Sexual OrientationNot on file Last Filed Vital Signs Vital SignReadingTime TakenCommentsBlood Wefqsbfw531/7706 7:51 AM EDT Xrtns786304/13/2018 7:51 AM QNOThflbffegna51.7 ??C (98.1 ??F)12/27/2018 10:03 AM ESTRespiratory Uldq388011/08/2018 11:14 AM ESTOxygen Neoxpzytau69%04/13/2018 7:51 AM EDTInhaled Oxygen Concentration--Tfgyvh376.4 kg (250 lb)12/27/2018 10:03 AM RZOSsrrth296 cm (6' 4 )12/27/2018 10:03 AM ESTBody Mass Index30.43012/27/2018 10:03 AM EST Plan of Treatment Not on file Medical Devices ImplantedTypeAreaManufacturerDevice IdentifierShelf Expiration DateModel / Serial / LotKit Sealant Surgiflo Hemostatic Matrix Implanted:Qty: 1 on 04/11/2018 by Ang Rocha MD at [facility] Bone/Graft/Tissue/Human/SynthN/A: BackJNJ: [employer]-[id number] / / Graft Canc Chip 30cc 1.0ju44po - [id number] Implanted:Qty: 1 on 04/11/2018 by Ang Rocha MD at [facility] Bone/Graft/Tissue/Human/SynthN/A: BackMUSCULOSKELETAL TRANSPLANT FND-PMM 12/22/[id number] / [id number] / Screw Polyaxial Reline-O 6.5x50mm Implanted:Qty: 2 on 04/11/2018 by Ang Rocha MD at [facility] Screw/Plate/Nail/RodN/A: Back[employer] INC-[id number] / / Screw Polyaxial Reline-O 2s 6.5x55mm Implanted:Qty: 4 on 04/11/2018 by Ang Rocha MD at [facility] Screw/Plate/Nail/RodN/A: [employer]-[id number] / / Edwin-Cellular Bone Matrix 10cc - [id number] Implanted:Qty: 1 on 04/11/2018 by Ang Rocha MD at [facility] SpineN/A: [employer]-PMM12/14/[id number] / [id number] / Screw Lk Reline Opn Tulip 5.5mm Implanted:Qty: 6 on 04/11/2018 by Ang Rocha MD at [facility] SpineN/A: [id number] / / Impl Spine Rick Reline-O 5.5x75mm Implanted:Qty: 2 on 04/11/2018 by Ang Rocha MD at [facility] SpineN/A: [employer]-[id number] / / Connector Reline-O X C 45-65mm 5.5 Lp Ad Implanted:Qty: 1 on 04/11/2018 by Ang Rocha MD at [facility] SpineN/A: [employer]-[id number] / / Coroent Large Mp Implanted:Qty: 1 on 04/11/2018 by Ang Rocha MD at [facility] N/A: Back/ [id number] / Insurance Advance Directives * Full Code (Latest Code Status on File) Date ActivatedDate InactivatedComments04/11/2018 2:52 PM04/13/2018 2:05 PM Care Teams Team MemberRelationshipSpecialtyStart DateEnd Date Devang Keyes DO PCP - GeneralInternal Medicine02/15/18
--- OUTSIDE RECORDS SUMMARY | 2025-09-02 09:16 | XMS_ITS | CCD ---
Author Organization [facility] Care Team Providers Care Seismographer Name Role Phone AJ, ANG H. Unavailable Unavailable DOROTHY HALL E Unavailable Unavailable AJ, ANG H. Unavailable Unavailable AJ, ANG H. Unavailable Unavailable DOROTHY HALL E Unavailable Unavailable RAFAEL, DOROTHY E Unavailable Unavailable AJ, ANG H. Unavailable Unavailable AJ, ANG H. Unavailable Unavailable AJ, ANG H. Unavailable Unavailable Unavailable Unavailable Dorothy Hall Unavailable DOROTHY HALL Primary Care Physician [phone] Dorothy Hall Unavailable LUDWIN LEMON Unavailable Allison Kenyon Unavailable Marisol Connors Referring Unavailable Rafael, Dr. Dorothy Renteria Primary Care Marisol East Attending Unavailable ConnorsMarisol muñoz Referring Unavailable Ball, Dr. Dorothy Renteria Primary Care Marisol East [...] RAFAEL, DR DE LA CRUZ Attending Unavailable ARFAEL, DR DE LA CRUZ Consulting Unavailable ZIEBER, [...] Unavailable CONNORS, DR MARISOL Gao Consulting Unavailable Dorothy Hall DO Primary Care Provider DOROTHY HALL Referring Unavailable Sophie Stephenie Attending Unavailable Bib Sanchez Attending Unavailable MD Bib Sanchez Admitting Unavailable RAFAEL, DOROTHY Referring Unavailable ALANIS WOOD Attending Unavailable Homero XAVIER Attending Unavailable ALANIS WOOD Attending Unavailable Bert Huang Attending Unavailable RAFAEL, DOROTHY Referring Unavailable Sophie, PA-C Stephenie Admitting Unavailabl e BALL, DOROTHY Referring Unavailable Barrios, Stephenie Attending Unavailable BALL, DOROTHY Referring Unavailable Barrios, Stephenie Admitting Unavailable Barrios, Stephenie Attending Unavailable Sophie PA-C Stephenie Admitting Unavailabl e BALL, DOROTHY Referring Unavailable Barrios, Stephenie Attending Unavailable Sophie PA-C Stephenie Admitting Unavailabl e BALL, DOROTHY Referring Unavailable Sophie, Stephenie Attending Unavailable [...] Huang Attending Unavailable DOROTHY HALL Referring Unavailable Sophie Stephenie Admitting Unavailable Sophie Stephenie Attending Unavailable DOROTHY HALL Referring Unavailable Bert Huang Attending Unavailable Bert Huang Referring Unavailable Bert Huang Attending Unavailable Bert Huang Referring Unavailable DOROTHY HALL Referring Unavailable Sophie PA-C Stephenie Admitting Unavailabl e Sophie, PA-C Stephenie Attending Unavailabl e BALL, DOROTHY Referring Unavailable Huang, Noel A. Admitting Unavailable Bert Huang Attending Unavailable Ball DO, Dorothy E Primary Care Provider Ball DO, Dorothy E Primary Care Provider [facility] Mad[facility] WALTERS, Anita Unavailable [phone] Mad[address] WALTERS, Anita F Attending Unavailabl e Ball DO, Dorothy Renteria Primary Care Unavail able Ame WALTERS, Jadon Admitting Unavailable Ball DO, Dorothy Renteria Primary Care Unavail able Bob PETERS-CLIENT RELATIONSHIP MANAGER, Lisa Marie Attending Unavaila ble Bob DARNELL, Lisa Marie Consulting Unavaila ble Diglio PA-C, Christian Levine Consulting [place]a Pena, Denny Marie Consulting Unavailab arianna Mcclain MD, Deonte Brandon Consulting [place] Bhatt, Jorgito Palma Consulting Unavailable Remberto WALTERS, [...] DOROTHY E Primary Care Unavailable Ball DO, Dorohty E Primary Care Provider EVELIO ALBARRAN Admitting Unavailabl e REF PROV, NOT IN SYSTEM Referring Unavaila ble BALL, DOROTHY E Primary Care Unavailable ([facility] ONLY), NEURO-CONSULTING Consulting Luba ALONSO Verdin Attending Unavailable BALL, DOROTHY E Referring Unavailable BALL, DOROTHY E Primary Care Unavailable Ball DO, Dorothy E Primary Care Provider Ball DO, Dorothy Primary Care Provider [phone] Ball DO, Dorothy Attending Provider Jillian Jones CMA Attending Provider Unavaila ble Haseeb Meehan DO Attending Provider Vinny Porter MD Attending Provider [phone] Mesfin Paez DO Attending Provider Dorothy Hall DO Primary Care Provider [facility] Madeline WALTERS, Anita Unavailable Dorothy Hall DO Primary Care Provider MARISOL CONNORS Attending Unavailable MARISOL CONNORS Referring Unavailable DOROTHY HALL Primary Care Unavailable MARISOL CONNORS Attending Unavailable DOROTHY HALL Primary Care Unavailable Chidi Mims Attending Unavailable ZAHLERCARLOS Attending Unavailable MONTES, FATOUMATA Davidson Attending Unavailable BRINK, JENNY Attending Unavailable MONTES, FATOUMATA J Referring Unavailable MONTES, FATOUMATA J Referring Unavailable MONTES, FATOUMATA Davidson Referring Unavailable ZAHLERCARLOS Attending Unavailable BRINK, JENNY Attending Unavailable MONTES, FATOUMATA Davidson Referring Unavailable MARYSE FULTON Attending Unavailable MONTES, FATOUMATA Davidson Referring Unavailable BRINK, JENNY Attending Unavailable MONTES, FATOUMATA Davidson Referring Unavailable BRINK, JENNY Attending Unavailable MONTES, FATOUMATA Davidson Referring Unavailable BRINK, JENNY Attending Unavailable MONTES, FATOUMATA Davidson Referring Unavailable CHAUNCEY ALDRICH Attending Unavailable KAYLEEN, FATOUMATA Davidson Referring Unavailable JR. GARAY GEORGE C Attending Unavaila jena GARAY JR., GEORGE C Referring Unavaila Dorothy Redd DO Primary Care Provider [phone] Dorothy Hall DO Attending Provider [phone] Marisol Connors MD Attending Provider Dorothy Hall DO Primary Care Provider [phone] Mesfin Paez DO Attending Provider Dorothy Hall DO Attending Provider [phone] Unavailable Unavailable Unavailable Allergies Allergy ClassificationReported Allergen(s)Allergy TypeDate of OnsetReaction(s) FacilityDULoxetine (1 source)DULoxetine; Translations: [duloxetine]Drug AllergyHallucinations (finding)[facility] (1 source)oxyCODONE; Translations: [oxycodone]Drug AllergyVisual hallucinations [facility] (1 source)oxybutynin; Translations: [oxybutynin]Drug AllergyHallucinations (finding)[facility] (10 sources)Acetaminophen / HYDROcodone; Translations: [HYDROcodone- Acetaminophen TABS]Drug Xsfuttb46-08-1367RypnwoyufdgeljNoeiwsjwhx [facility] (20 sources)oxybutynin; Translations: [oxybutynin]Drug AllergyHallucinations (finding)[facility] (20 sources)oxyCODONE; Translations: [oxycodone]Drug Leegyzp89-74-0680 [facility] (1 source)oxyCODONEDrug Vemovwe80-69-2252Bit [facility] (14 sources)DULoxetine; Translations: [duloxetine]Drug AllergyHallucinations (finding)[facility] (3 sources)Sulfonamides (Antibiotic); Translations: [sulfa drugs]Propensity to adverse reactions (disorder)[facility] (20 sources)Acetaminophen / HYDROcodone; Translations: [HYDROCODONE-ACETAMINOPHEN]Drug Hovejdk21-32-8600NmvfklndoomuczNNN[facility] (20 sources)DULoxetineDrug Jddshfy7431IjjpzbssoatmlmQHET [facility] (1 source)HYDROcodone; Translations: [HYDROcodone][facility] Medications Current Medications MedicationDrug Class(es)DatesSig (Normalized)Sig (Original)allopurinol 300 mg oral tablet (20 sources)Xanthine Oxidase InhibitorStart: 17-53-8291Fslxnhdtcte 300 mg tablet Active 0 .ROUTE .COMPLEX 90 July 15, 2025 10:23am TAKE 1 TABLET DAILY Complies with drug therapyStart: 03-30-2024 End: 59-59-3043siqt 1 tablet by mouth once dailyAllopurinol 300 mg tablet Discontinued 0 .ROUTE .COMPLEX 90 March 30, 2024 3:48pm April 280:40am TAKE 1 TABLET BY MOUTH EVERY DAYStart: 05-08-2021 End: 85-18-3687yoed 1 tablet by mouth once dailyAllopurinol 300 mg tablet Discontinued 300 MG PO Daily 90 90 3 April 28, 2024 12:40pm October 24, 2024 10:37amStart: 01-44-0359ohhl 1 tablet by mouth once dailyallopurinol 100 mg Tab 100 mg = 1 tab(s), Oral, Daily, Refills(s) 0, Gout pain Start Date: 12/02/20 S tatus: Orderedamitriptyline hydrochloride 25 mg oral tablet (3 sources)Tricyclic AntidepressantStart: 05-02-2024 End: 09-49-9389phfw 1 tablet by mouth once daily at bedtimeamitriptyline 25 mg Tab 25 mg = 1 tab(s), Oral, Once a day (at bedtime), X 30 day(s), # 30 tab(s), R efills(s) 1, Pharmacy: [facility]/pharmacy #[id number], 193, cm, 05/02/24 10:29:00 EDT, Height/Length Dosing, 104.5, kg, 03/14/24 9:55:00 EDT, Weight Dosing Start Date: 05/02/24 Stop Date: 07/01/24 Status: OrderedStart: 03-14-2024 End: 76-97-3168hayq 1 tablet by mouth once daily at bedtimeamitriptyline 10 mg Tab 10 mg = 1 tab(s), Oral, Once a day (at bedtime), X 30 day(s), # 30 tab(s), R efills(s) 1, Pharmacy: [facility]/pharmacy #[id number], 193, cm, 03/14/24 9:55:00 EDT, Height/Length Dosing, 104.5, kg, 03/14/24 9:55:00 EDT, Weight Dosing Start Date: 03/14/24 Stop Date: 05/13/24 Status: OrderedamLODIPine 5 mg oral tablet (20 sources)Dihydropyridine Calcium Channel BlockerStart: 04-23-2025 End: 59-82-5965ephd 5 mg by mouth once daily5 mg, oral, Daily, First dose on [place] 04/23/25 at 0900, Look-alike/sound-alike medication - verify indication for use. Avoid grapefruit juice.Start: 06-23-2024 End: 97-32-6694yqnx 1 tablet by mouth twice dailyAmlodipine 5 mg tablet Discontinued 0 .ROUTE .COMPLEX 180 3 October 24, 2024 10:39am June 23, 2025 1:28pm TAKE 1 TABLET BY MOUTH TWICE A DAY FOR 30 DAYSStart: 02-26-2024 End: 25-49-2080thay 1 tablet by mouth twice dailyAmlodipine 5 mg tablet Discontinued 5 MG PO Twice daily 180 90 April 28, 2024 12:41pm June 23, 2024 11:44amStart: 79-17-4258nnqw 10 mg by mouth once dailyamlodipine 10 mg, Oral, Daily, High blood pressure Start Date: 11/29/18 Status: OrderedStart: 07-02-2017 End: 92-87-4439gmdf 1 tablet by mouth once dailyAmlodipine 5 mg Tablet Discontinued 5 MG PO Daily July 02, 2017 12:00am February 26, 2024 2:59pmtake 2 tablets by mouth in the morningamLODIPine (NORVASC) 2.5 mg tablet Take 2 tablets (5 mg total) by mouth in the morning. ActiveamLODIPine Besylate Active amoxicillin 500 mg oral tablet (20 sources)Penicillin-class AntibacterialStart: 92-17-2193zzoo 4 tablets by mouth once at mealtimeamoxicillin (Amoxil) 500 MG tablet Indications: History of total right knee replacement 4 tabs PO once 30-60 mins before procedure with food 4 tablet 3 07/08/2024 Activeatorvastatin 40 mg oral tablet (20 sources)HMG-CoA Reductase InhibitorStart: 38-35-7756Ipgklaqckwwl 40 mg tablet Active 0 .ROUTE .COMPLEX 90 3 July 07, 2025 10:02pm TAKE 1 TABLET DAILY Complies with drug therapyStart: 06-16-2019 End: 97-05-8914bihj 1 tablet by mouth once dailyAtorvastatin (Lipitor) 40 mg tablet Discontinued 40 MG PO Daily 90 90 April 28, 2024 12:41pm October 24, 2024 10:37ambaclofen 5 mg oral tablet (1 source)gamma-Aminobutyric Acid-ergic AgonistStart: 09-24-2024 End: 60-47-1937iesp 1 tablet by mouth three times daily as needed for pain baclofen 5 mg oral tablet 5 mg = 1 tab(s), Oral, TID, take as needed for back pain/stiffness, X 30 day(s), # 90 tab(s), Refills(s) 0, Pharmacy: [facility]/pharmacy #[id number], 193, cm, 09/24/24 9:04:00 EST, Height/Length Dosing, 109, kg, 09/24/24 9:04:00 EST, Weight Dosing Start Date: 09/24/24 Stop Date: 10/24/24 Status: OrderedCalcium (20 sources)Phosphate Binder, CalciumStart: 14-64-1838ypyv 1 tablet by mouth once dailyCalcium 600+D oral tablet 1 tab(s), Oral, Daily, Prophylaxis Start Date: 11/29/18 Status: OrderedCalcium ActiveCalcium + D TABS TAKE 1 TABLET DAILY. Quantity: 0 Refills: 0 Ordered: 28-Mar-2022 DO Activecalcium carbonate 1500 mg oral tablet (20 sources)calcium carbonate 1500 (600 Ca) MG tablet 1 (one) time each day at the same time. Activecalcium carbonate 600 mg calcium (1,500 mg) tablet every 12 hours. Activetake 1 tablet by mouth every twelve hoursCalcium 600 MG 1 tablet with meals Orally Twice a day for 30 day(s) Activecephalexin 500 mg oral capsule (12 sources)Cephalosporin AntibacterialStart: 38-44-1119pksg 1 capsule by mouth every twelve hourscephalexin 500 mg Cap 500 mg = 1 cap(s), Oral, q12hr, # 20 cap(s), Refills(s) 0, Pharmacy: [facility]/pharmacy #[id number], 193, cm, 08/19/24 7:28:00 EDT, Height/Length Dosing, 106.9, kg, 07/02/24 9:05:00 EDT, Weight Dosing Start Date: 08/19/24 Status: OrderedStart: 07-24-2017 End: 42-73-5559qozm 1 capsule by mouth three times dailyCephalexin (Keflex) 500 mg capsule Discontinued 500 MG PO Three times daily 21 7 0 July 24, 2017 12:00am July 30, 2017 12:00am July 31, 2017 12:02am space evenly during waking hourscetirizine hydrochloride 10 mg oral tablet (9 sources)Histamine-1 Receptor AntagonistStart: 37-12-3772zpqt 1 tablet by mouth every twelve hoursciprofloxacin 500 mg oral tablet (2 sources)Quinolone AntimicrobialStart: 50-99-8807yois 1 tablet by mouth twice dailyCipro 500 mg Tab 500 mg = 1 tab(s), Oral, BID, Start medication the day prior to the procedure, # 14 tab(s), Refills(s) 0, [id number] 193, cm, 03/14/22 10:49:00 EDT, Height/Length Dosing, 114.5, kg, 03/14/22 10:49:00 EDT, Weight Dosing Start Date: 03/23/22 Status: OrderedDULoxetine 30 mg delayed release oral capsule (2 sources)Serotonin and Norepinephrine Reuptake InhibitorStart: 01-25-2024 End: 30-28-2784nctq 1 capsule by mouth twice dailyCymbalta 30 mg oral delayed release capsule 30 mg = 1 cap(s), Oral, BID, X 30 day(s), # 60 cap(s), R efills(s) 1, [id number], 193, cm, 01/25/24 13:38:00 EDT, Height/Length Dosing, 102.4, kg, 01/25/24 13:38:00 EDT, Weight Dosing Start Date: 01/25/24 Stop Date: 03/25/24 Status: Orderederythromycin 0.005 mg/mg ophthalmic ointment (1 source)Macrolide, Macrolide AntimicrobialStart: 87-57-5591scepgaybibsq ophthalmic 0.5% ointment 0.5 in, Eye-Both, QID, 3.5 gram, Refill(s) 1, [id number] 192, cm, 02/03/21 8:57:00 EDT, Height/Length Dosing, 116, kg, 02/03/21 8:57:00 EDT, Weight Dosing Start Date: 02/07/21 Status: Ordered etodolac 500 mg oral tablet (20 sources)Nonsteroidal Anti-inflammatory DrugStart: 87-41-1222jbuo 1 tablet by mouth every twelve hoursEtodolac 500 mg tablet Active 500 MG PO Every 12 hours 180 90 1 July 09, 2025 12:00am pain Complies with drug therapyStart: 04-08-2024 End: 17-00-2818ktox 1 tablet by mouth every twelve hoursEtodolac 500 mg tablet Discontinued 0 .ROUTE .COMPLEX 60 2 April 08, 2024 1:26pm April 28, 2024 12: 43pm TAKE 1 TABLET BY MOUTH EVERY 12 HOURS FOR 30 DAYSStart: 01-25-2024 End: 96-57-3581sfhy 1 tablet by mouth twice dailyEtodolac 500 mg tablet Discontinued 500 MG PO Twice daily 180 90 3 April 28, 2024 12:42pm October 24, 2024 10:37amStart: 12-31-2023 End: 08-76-8854tair 1 tablet by mouth every twelve hoursEtodolac 500 mg tablet Discontinued 500 MG PO Every 12 hours 60 30 2 January 10, 2024 3:02pm April 08, 2024 1:27pmFish Oils (9 sources)hydroCHLOROthiazide 25 mg oral tablet (20 sources)Thiazide DiureticStart: 73-37-5836Mfageulbtvmxdimqwsq 25 mg tablet Active 0 .ROUTE .COMPLEX 90 3 June 23, 2025 1:28pm TAKE 1 TABLET DAILY Complies with drug therapyStart: 04-23-2025 End: 94-48-6135brek 25 mg by mouth once daily25 mg, oral, Daily, First dose on Sun04/23/25 at 0900, Look-alike/sound-alike medication - verify indication for use.Start: 01-03-2024 End: 29-82-0207syrp 1 tablet by mouth once dailyHydrochlorothiazide 25 mg tablet Discontinued 0 .ROUTE .COMPLEX 90 3 January 03, 2024 8:12pm April 28, 2024 12:43pm TAKE 1 TABLET BY MOUTH EVERY DAYStart: 07-02-2017 End: 65-07-4752mcep 1 tablet by mouth once dailyHydrochlorothiazide 25 mg tablet Discontinued 25 MG PO Daily 30 0 May 29, 2025 12:00am June 23, 2025 1:28pmhydroCHLOROthiazide Activelutein 25 mg / zeaxanthin 5 mg oral capsule (20 sources)Start: 20-97-8564yzbc 1 capsule by mouth once dailyLutein-Zeaxanthin 25-5 mg capsule Active 1 CAP PO Daily April 28, 2024 12:00am Complies with drug therapyLutein-Zeaxanthin 25-5 MG capsule Orally ActiveLUTEIN-ZEAXANTHIN ORAL Take by mouth. ActiveLUTEIN-ZEAXANTHIN ORAL Take by mouth.take 1 capsule by mouth once dailyLUTEIN-ZEAXANTHIN ORAL Take 1 capsule by mouth once daily. Activetake 1 capsule by mouth once dailyLUTEIN-ZEAXANTHIN ORAL Take 1 capsule by mouth once daily. 0 ActiveLutein-Zeaxanthin 25-5 MG as directed Orally Active melatonin 3 mg oral capsule (12 sources)Start: 20-86-0300iywl 1 capsule by mouth once daily at bedtime as neededMelatonin 3 mg capsule Active 3 MG PO Daily at bedtime as needed May 26, 2025 12:00am Complies with drug therapyStart: 04-23-2025 End: 47-73-6443lcuo 1 tablet by mouth at bedtimemelatonin (Melatonin Maximum Strength) 5 MG tablet Take 5 mg by mouth at bedtime 04/28/2025 Activetake 1 capsule by mouth once dailymelatonin 5 mg capsule Take 1 capsule (5 mg) by mouth once daily. Activemeloxicam 7.5 mg oral tablet (3 sources)Nonsteroidal Anti-inflammatory DrugStart: 42-35-7459aikj 1 tablet by mouth every twelve hoursMeloxicam 7.5 MG 1 tablet Orally bid for 30 days Please discontinue Aleve and Advil while taking the Meloxicam Feb, ActiveStart: 95-93-2503gjii 1 tablet by mouth once dailyMeloxicam 15 MG Oral Tablet TAKE 1 TABLET DAILY. Quantity: 30 Refills: 3 Ordered: 28-Mar-2022 Marisol Connors MD Start : 28-Mar-2022 Active stopped riuywc40 hr mirabegron 50 mg extended release oral tablet (20 sources)beta3-Adrenergic AgonistStart: 34-25-2196hinj 1 tablet by mouth once dailyMirabegron (Myrbetriq) 50 mg tablet extended release 24 hr Active 50 MG PO Daily 30 30 0 February 16, 2025 12:00am Complies with drug therapyStart: 07-05-2021 End: 52-03-0707aenn 1 tablet by mouth once dailyMyrbetriq 50 mg oral tablet, extended release 50 mg = 1 tab(s), Oral, Daily, X 90 day(s), # 90 tab(s), Refills(s) 3, Pharmacy: [facility] 193, cm, 12/27/21 9:50:00 EST, Height/Length Dosing, 114.5, kg, 12/27/21 9:50:00 EST, Weight Dosing Start Date: 12/30/21 Stop Date: 12/25/22 Status: Orderedmirabegron (MYRBETRIQ ORAL) Take by mouth. Activemirabegron (MYRBETRIQ ORAL) Take by mouth. nitroglycerin 0.4 mg sublingual tablet (19 sources)Nitrate VasodilatorStart: 38-06-0055yylbmxzzfmgmw 0.[address] 1 TABLET (0.4 MG) UNDER THE TONGUE EVERY 5 MINUTES NEEDED FOR CHEST PAIN Start Date: 06/12/24 Status: OrderedStart: 09-26-2022 End: 42-30-5194hxdfurxbjmabn (Nitrostat) 0.4 mg SL tablet Indications: Arteriosclerosis of coronary artery Place 1tablet (0.4 mg) under the tongue every 5 minutes if needed for chest pain. 25 tablet 11 05/22/2024 ActiveStart: 63-70-3912Whxtejsbnylwy 0.4 MG Sublingual Tablet Sublingual TAKE DIRECTED. Quantity: 25 Refills: 11 Ordered: 26-Sep-2022 Marisol Connors MD Start : 26-Sep-2022 ActiveOmega 9-Xav-Xpv-Fish Oil (1 source)Start: 55-09-9104jaew 1200 mg by mouth once dailyOmega 2-Ped-Eqo-Fish Oil Active 1200 MG Oral Daily July 02, 2017 10:56amOsteo Bi-Flex Joint Shield (9 sources)microencapsulated potassium chloride 20 meq extended release oral tablet (20 sources)Start: 11-55-5614Myavkgdfk Chloride (Klor-Con M20) 20 mEq tablet,ER particles/crystals Active 20 MEQ PO Twice daily 180 90 3 July 15, 2025 9:30am Complies with drug therapyStart: 06-03-2025 End: 08-61-0051Nqvvhfboz Chloride (Klor-Con M20) 20 mEq tablet,ER particles/crystals Discontinued 0 .ROUTE .COMPLEX 90 3 June 03, 2025 12:57pm July 15, 2025 9:31am TAKE 1 TABLET DAILYStart: 05-29-2025 End: 15-56-6643mjux 1 tablet by mouth twice dailyPotassium Chloride 20 mEq tablet extended release Discontinued 20 MEQ PO Twice daily May 29, 2025 11:57am June 03, 2025 12:57pmStart: 04-27-2025 End: 27-34-8908aftnmoghf chloride (K-TAB,KLOR-CON) CR tablet 30-50 mEqStart: 04-23-2025 End: 99-73-199868 mEq, oral, 2 times daily, First dose on [facility] 04/23/25 at 0200, Do not crush or chew.Start: 04-28-2024 End: 76-56-7629asuk 1 tablet by mouth once dailyPotassium Chloride 20 mEq tablet extended release Discontinued 20 MEQ PO Daily 90 90 3 October 24, 2024 10:40am May 29, 2025 11:58amStart: 26-53-2430MJCE-CON 20 MEQ ER tablet 07/28/2024 ActiveStart: 35-44-9411asny 1 tablet by mouth once dailyKlor-Con M20 20 MEQ Oral Tablet Extended Release TAKE 1 TABLET BY MOUTH EVERY DAY Quantity: 90 Refills: 3 Ordered: 08-Mar-2022 Marisol Connors MD Start : 06-Mar-2022 Active Start: 77-81-6851wemi 1 tablet by mouth once dailyKlor-Con M20 1 tab, Oral, Daily, Refills(s) 0, Prophylaxis Start Date: 11/01/20 Status: Orderedpotassium chloride 20 meq one po daily for 30 days Activepregabalin 25 mg oral capsule (12 sources)Start: 52-92-6775wghm 1 capsule by mouth twice dailypregabalin 25 mg Cap 25 mg = 1 cap(s), Oral, BID, # 60 cap(s), Refills(s) 2, Pharmacy: [facility]/pharmacy#[id number], 193, cm, 11/09/23 11:29:00 EST, Height/Length Dosing, 110, kg, 11/09/23 11:29:00 EST, WeightDosing Start Date: 11/09/23 Status: OrderedStart: 04-18-2023 End: 58-57-4215gegr 1 capsule by mouth twice dailypregabalin 25 mg Cap 25 mg = 1 cap(s), Oral, BID, X 30 day(s), # 60 cap(s), Refills(s) 0, Pharmacy: [facility]/pharmacy #[id number], 193, cm, 03/19/23 8:54:00 EDT, Height/Length Dosing, 108.9, kg, 03/19/23 8:54:00 EDT, Weight Dosing Start Date: 04/18/23 Stop Date: 05/18/23 Status: OrderedStart: 53-96-3376flff 1 capsule by mouth twice dailypregabalin 25 mg Cap 25 mg = 1 cap(s), Oral, BID, # 60 cap(s), Refills(s) 0, Pharmacy: [facility]/pharmacy#[id number], 193, cm, 03/19/23 8:54:00 EDT, Height/Length Dosing, 108.9, kg, 03/19/23 8:54:00 EDT, WeightDosing Start Date: 03/19/23 Status: Ordered End: 87-51-0799mlwu 1 capsule by mouth once dailypregabalin (Lyrica) 25 mg capsule Take 1 capsule (25 mg) by mouth once daily. 05/22/2024 Discontinued (Therapy completed)QUEtiapine 25 mg oral tablet (4 sources)Atypical AntipsychoticStart: 04-23-2025 End: 15-96-0963rpfa 1 tablet by mouth once daily as neededQUEtiapine (SEROquel) 25 mg tablet Take 1 tablet (25 mg total) by mouth nightly as needed (). 04/28/2025 Activesildenafil 50 mg oral tablet (19 sources)Phosphodiesterase 5 InhibitorStart: 14-04-2719Tyudfo 50 mg Tab See Instructions, 1-2 tab(s) po 1 hr before sexual acitivity. do not exceed 2 tabsin 24 hrs., # 15 tab(s), Refills(s) 3, Pharmacy: [facility]/pharmacy #[id number], 193, cm, 08/31/22 9:11:00 EDT,Height/Length Dosing, 114.5, kg, 08/31/22 9:11:00 EDT, Weight Dosing Start Date: 09/07/22 Status: OrderedtraMADol hydrochloride 50 mg oral tablet (8 sources)Opioid AgonistStart: 08-19-2024 End: 46-05-4951chwc 1 tablet by mouth every eight hours as needed for pain traMADol (Ultram) 50 MG tablet TAKE 1 TABLET BY MOUTH EVERY 8 HOURS NEEDED FOR POSTPROCEDURE PAIN FOR 5 DAYS 08/19/2024 06/02/2025 Discontinued (Therapy completed)Start: 54-38-4211tyxp 1 tablet by mouth every six hours as needed for paintraMADOL 50 mg Tab 50 mg = 1 tab(s), Oral, q6hr, PRN Pain, # 20 tab(s), Refills(s) 0, Pharmacy: [facility]/pharmacy #[id number], 192, cm, 02/03/21 8:57:00 EDT, Height/Length Dosing, 116, kg, 02/03/21 8:57:00 EDT,Weight Dosing Start Date: 02/07/21 Status: OrderedVitamin B Complex (1 source)Vitamin B Complex - as directed Orally ActiveVitamin B12 1000 mcg Tab (20 sources)Start: 03-37-1746xjnb 1 tablet by mouth once dailyVitamin B12 1000 mcg Tab 1,000 mcg = 1 tab(s), Oral, Daily, Refills(s) 0, Prophylaxis Start Date: 11/01/20 Status: OrderedVitamin C 1000 mg oral tablet (20 sources)Start: 13-61-7655mcsx 1 tablet by mouth once dailyVitamin C 1000 mg oral tablet 1,000 mg = 1 tab(s), Oral, Daily, Refills(s) 0, Prophylaxis Start Date: 11/01/20 Status: Ordered Completed/Discontinued Medications MedicationDrug Class(es)DatesSig (Normalized)Sig (Original)acetaminophen 325 mg oral tablet (12 sources)Start: 04-23-2025 End: 18-90-3453rmos 1 tablet by mouth every four hours as mg, oral, Every 4 hours PRN, Temperature greater than 38.3 C, Starting on [place] 04/23/25 at 0009, [Warning: Total Acetaminophen not to exceed more than 4 grams (4000 mg) in 24 hours]Start: 11-32-2257zqdr 2 capsules by mouth every six hours as needed Acetaminophen 500 mg capsule Active 1000 MG PO Every 6 hours as needed April 16, 2025 12:00am Complies with drug therapyStart: 24-42-8002wwxp 650 mg by mouth three times daily as needed for painTylenol 650 mg, Oral, TID, PRN as needed for pain, Refills(s) 0 Start Date: 06/24/24 Status: OrderedStart: 23-94-2695Aaasnjd Oral, Refills(s) 0 Start Date: 06/24/24 Status: Ordered acetaminophen 325 mg / oxyCODONE hydrochloride 5 mg oral tablet (10 sources)Opioid AgonistStart: 07-24-2017 End: 55-18-6338ioiu 1 tablet by mouth every six hours as needed for pain Oxycodone-Acetaminophen 5-325 mg Tablet Discontinued 1 TAB PO Q6H as needed for Pain Scale 1 - 5 4014 0 July 24, 2017 12:00am March 04, 2019 8:09am aluminum hydroxide 40 mg/ml / magnesium hydroxide 40 mg/ml / simethicone 4 mg/ml oral suspension (1 source)Start: 04-23-2025 End: 70-29-2935txtontmd acid 1000 mg oral tablet (20 sources)Vitamin CStart: 04-28-2024 End: 20-91-3610siwp 1 g by mouth once dailyAscorbic Acid (Vitamin C) 1,000 mg tablet Discontinued 1 GM PO Daily April 28, 2024 12:00am May 29, 2025 12:24pmStart: 26-90-2266bspu 1 g by mouth once dailyAscorbic Acid (Vitamin C) Active 1 GM PO Daily April 28, 2024 12:00amAscorbic Acid (Vitamin C) 500 MG capsule as directed Orally Activeaspirin 81 mg delayed release oral tablet (20 sources)Platelet Aggregation Inhibitor, Nonsteroidal Anti-inflammatory Drug Start: 04-23-2025 End: 63-19-3421ytsr 81 mg by mouth twice daily81 mg, oral, 2 times daily, First dose on [facility] 04/23/25 at 0200, Do not crush or chew.Start: 96-44-1823xkef 1 tablet by mouth once dailyaspirin 81 mg oral tablet 81 mg = 1 tab(s), Oral, Daily, # 30 tab(s), Refills(s) 0 Start Date: 12/02/19 Status: OrderedStart: 06-16-2019 End: 91-28-1902ihic 1 tablet by mouth once dailyAspirin 81 mg tablet,delayed release (DR/EC) Active 81 MG PO Daily 30 0 June 16, 2019 12:00am Complies with drug therapyStart: 07-02-2017 End: 36-84-3799dcbx 1 tablet by mouth once dailyAspirin (Manuel Low Dose Aspirin) 81 mg Tablet,Delayed Release (Dr/Ec) Discontinued 1 TAB PO Daily July 02, 2017 12:00am March 04, 2019 8:08amaspirin 81 MG chewable tablet 1 (one) time each day at the same time. ActiveBaby Aspirin Activebarium sulfate (VARIBAR HONEY) 40 % (w/v) 29% (w/w) suspension 60 mL (1 source)Start: 04-24-2025 End: mL, oral, Once in imaging, contrast, barium sulfate (VARIBAR HONEY) 40 % (w/v) 29% (w/w) suspension, Starting on Sun04/24/25 at 0954, For 1 dosebarium sulfate (VARIBAR NECTAR) 40 % (w/v) suspension 10 mL (1 source)Start: 04-24-2025 End: mL, oral, Once in imaging, contrast, barium sulfate (VARIBAR NECTAR) 40 % (w/v) suspension, Starting on Sun04/24/25 at 0954, For 1 dosebarium sulfate (VARIBAR PUDDING) 40 % (w/v), 30% (w/w) oral paste 60 mL (1 source)Start: 04-24-2025 End: mL, oral, Once in imaging, contrast, barium sulfate (VARIBAR PUDDING) 40 % (w/v), 30% (w/w) oralpaste, Starting on Sun04/24/25 at 0954, For 1 dosebarium sulfate (VARIBAR THIN HONEY) 40 %(w/v), 29% (w/w)(1500 CPS) suspension 20 mL (1 source)Start: 04-24-2025 End: 16-69-8051ychi 20 mL by mouth once20 mL, oral, Once in imaging, contrast, Radiology, Starting on Sun04/24/25 at 0954, For 1 dosebarium sulfate (VARIBAR THIN) 81 % (w/w) powder 148 g (1 source)Start: 04-24-2025 End: 88-26-7304951 g, oral, Once in imaging, contrast, barium sulfate (VARIBAR THIN) 40 % (w/v) powder, Starting on Sun04/24/25 at 0954, For 1 dose5 ml bupivacaine hydrochloride 5 mg/ml injection (4 sources)Amide Local AnestheticStart: 06-02-2025 End: 89-70-1813hbosqqyibhn PF (Marcaine) 0.5 % injection 2 mLStart: 06-02-2025 End: mL, Injection, Once PRN Procedure, Starting on Sun06/02/25 at 1047, For 1 dosecalcium carbonate 1250 mg / cholecalciferol 200 unt oral tablet (14 sources)Vitamin DStart: 04-23-2025 End: 73-29-6698avjy 1 tablet by mouth twice daily at mealtime1 tablet, oral, 2 times daily with meals, First dose on Sun04/23/25 at 0800, Look-alike/sound-alikemedication - verify indication for use. Vit D3 200 IU = 5 mcg.Start: 91-85-7322fywc 1 tablet by mouth once dailyCalcium Carbonate-Vitamin D3 Active 1 TAB Oral Daily July 02, 2017 10:49amStart: 07-02-2017 End: 25-28-0009Uqrqaey Carbonate-Vitamin D3 (Calcium 500 + D) 500 mg(1,250mg) - 400 unit Tablet Discontinued 1 TAB PO Daily July 02, 2017 12:00am April 16, 2025 2:04pmtake 1 tablet by mouth once daily in the morning, then take 1 tablet by mouth once at mealtimecalcium carbonate-vitamin D3 (CALCIUM 500 + D) 500 mg(1,250mg) -200 units per tablet Take 1 tablet by mouth in the morning and 1 tablet in the evening. Take with meals. Activechondroitin sulfates 200 mg / glucosamine hydrochloride 250 mg oral tablet (11 sources)Start: 07-02-2017 End: 52-69-5747tmlq 2 tablets by mouth once dailyGlucosamine-Chondroitin (Osteo Bi-Flex) 250-200 mg Tablet Discontinued 2 TAB PO Daily July 02, 2017 12:00am December 27, 2023 3:30pmclopidogrel 75 mg oral tablet (20 sources)P2Y12 Platelet InhibitorStart: 06-16-2019 End: 42-31-9591qrff 1 tablet by mouth once dailyClopidogrel (Plavix) 75 mg tablet Discontinued 75 MG PO Daily 30 30 June 16, 2019 12:00am December 27, 2023 3:30pmcyclobenzaprine hydrochloride 10 mg oral tablet (10 sources)Muscle RelaxantStart: 07-24-2017 End: 74-46-3117bsrc 1 tablet by mouth every eight hours as needed for muscle spasmsCyclobenzaprine 10 mg Tablet Discontinued 10 MG PO Every 8 hours as needed for Muscle Spasm 40 14 0Sept2016 12:00am March 04, 2019 8:09am docusate sodium 50 mg / sennosides, intermediate 8.6 mg oral tablet (11 sources)Start: 04-23-2025 End: 99-58-1970hkkq 1 tablet by mouth every twelve hours as needed for constipationStart: 07-24-2017 End: 53-47-7208kwcm 2 tablets by mouth twice dailySennosides-Docusate Sodium (Dok Plus) 8.6-50 mg Tablet Discontinued 2 TAB PO Twice daily 40 14 0 July 24, 2017 12:00am March 04, 2019 8:10amfamotidine 20 mg oral tablet (10 sources)Histamine-2 Receptor AntagonistStart: 04-23-2025 End: 12-54-8936rvwq 20 mg by mouth every twelve hours20 mg, oral, Every 12 hours, First dose on Sun04/23/25 at 0015, Pharmacy to adjust dose per renal fu nctionStart: 02-98-9486tcqa 1 tablet by mouth every twelve hoursglucagon (rdna) 1 mg injection (1 source)Antihypoglycemic AgentStart: 04-23-2025 End: 93-13-070217 ml glucose 500 mg/ml prefilled syringe (2 sources)Start: 04-23-2025 End: 69-58-5486Fnyiv: 04-23-2025 End: ml heparin sodium, porcine 5000 unt/ml injection (1 source)Unfractionated Heparin, Anti-coagulantStart: 04-23-2025 End: ,000 Units, subcutaneous, Every 12 hours scheduled, First dose on [facility] 04/23/25 at 0015, Notify prescriber if INR greater than 1.9, hemoglobin less than 10 mg/dL, aPTT greater than 40 seconds, and/or platelet count less than 100,000/mm Look-alike/sound-alike medication - verify indication for use. Observe for bleeding.ibuprofen 800 mg oral tablet (19 sources)Nonsteroidal Anti-inflammatory DrugStart: 03-04-2019 End: 05-26-3790ubnc 1 tablet by mouth three times daily as needed for pain Ibuprofen 800 mg Tablet Discontinued 800 MG PO Three times daily as needed for Pain March 04, 2019 12:00am June 16, 2019 10:03amLORazepam 0.5 mg oral tablet (4 sources)BenzodiazepineStart: 04-15-2025 End: 77-24-0042bsgb 1 tablet by mouth once daily as neededLorazepam 0.5 mg tablet Discontinued 0.5 MG PO Daily as needed for agitation 0 April 15, 2025 12:00am April 16, 2025 2:05pm Generalized anxiety disorder Generalized anxiety disorderlosartan potassium 25 mg oral tablet (20 sources)Angiotensin 2 Receptor BlockerStart: 04-09-2024 End: 85-40-8762rxvz 1 tablet by mouth once dailyLosartan 25 mg tablet Discontinued 0 .ROUTE .COMPLEX 90 1 April 09, 2024 8:39pm April 28, 2024 10:1 2am TAKE 25 MG BY MOUTH DAILY FOR 30 DAYSStart: 03-17-2024 End: 55-06-0389juxi 1 tablet by mouth once dailyLosartan 25 mg tablet Discontinued 25 MG PO Daily 90 90 3 April 28, 2024 12:42pm October 24, 2024 10:37amlutein 6 mg oral tablet (20 sources)Start: 03-04-2019 End: 83-29-3170bhnm 1 tablet by mouth once dailyLutein 6 mg Tablet Discontinued 6 MG PO Daily March 04, 2019 12:00am April 28, 2024 10:37amStart: 11-29-2018 lutein 5MG/25MG, Oral, Daily, Prophylaxis Start Date: 11/29/18 Status: Ordered Lutein Awawwj31 ml magnesium sulfate 40 mg/ml injection (2 sources)Start: 04-27-2025 End: ,000 mg, intravenous, at 25 mL/hr, Administer over 120 Minutes, As needed, Magnesium level 1.7 to 1.9 mg/dL, or Ionized Magnesium level 0.45 to 0.5 mmol/L., Starting on Sun04/27/25 at 0845, Recheck magnesium level 4 hours after infusion complete. With each magnesium result continue the replacement orders as needed.Start: 04-27-2025 End: ,000 mg, intravenous, at 25 mL/hr, Administer over 240 Minutes, As needed, Magnesium level 1.6 mg/dL or less, or Ionized Magnesium level 0.44 mmol/L or less, Starting on Sun04/27/25 at 0845, Recheckmagnesium level 4 hours after infusion complete. With each magnesium result continue the replacement orders as needed.1 ml methylPREDNISolone acetate 40 mg/ml injection (17 sources)CorticosteroidStart: 06-02-2025 End: 29-34-080829 mg, Intra-articular, Once PRN Procedure, Starting on Sun06/02/25 at 1048, For 1 doseStart: 06-02-2025 End: 61-65-8612zgckejNXHGZBIbnmmp acetate (DEPO-Medrol) injection 40 mgStart: 08-00-1411bnuorhonhgq 45 mg oral tablet (8 sources)Start: 04-16-2025 End: 59-90-0513cixw 1 tablet by mouth once daily at bedtimeMirtazapine 45 mg tablet Discontinued 45 MG PO Daily at bedtime April 16, 2025 4:47pm 2024 11:57amnaproxen sodium 220 mg oral tablet (20 sources)Nonsteroidal Anti-inflammatory DrugStart: 07-02-2017 End: 59-22-0248bucm 1 tablet by mouth once daily at bedtimeNaproxen Sodium (Aleve) 220 mg Tablet Discontinued 220 MG PO Daily at bedtime July 02, 2017 12:00am March 04, 2019 8:09amStart: 07-02-2017 End: 16-07-4639hvvg 2 tablets by mouth once daily in the morningNaproxen Sodium (Aleve) 220 mg Tablet Discontinued 440 MG PO Every morning July 02, 2017 12:00am July 24, 2017 8:15amOmega 6-Gun-Hss-Fish Oil (Fish Oil) 1,000 mg (120 mg-180 mg) Capsule (10 sources)Start: 07-02-2017 End: 44-47-4973Nkutd 1-Zog-Ush-Fish Oil (Fish Oil) 1,000 mg (120 mg-180 mg) Capsule Discontinued 1200 MG PO Daily July 02, 2017 12:00am December 27, 2023 3:30pmStart: 07-02-2017 End: 47-27-4138Foczf 0-Fnf-Ulz-Fish Oil (Fish Oil) 1,000 mg (120 mg-180 mg) Capsule Discontinued 1200 MG PO Daily July 01, 2017 11:00pm December 27, 2023 2:30pmomeprazole 20 mg delayed release oral capsule (15 sources)Proton Pump InhibitorStart: 05-29-2025 End: 71-38-4792thvi 2 capsules by mouth once dailyOmeprazole 20 mg capsule,delayed release(DR/EC) Discontinued 40 MG PO Daily May 29, 2025 11:57amJuly 2024 12:22pmStart: 10-81-4088vfzt 1 capsule by mouth once dailyOmeprazole 40 mg capsule,delayed release(DR/EC) Active 40 MG PO Daily 90 90 1 May 29, 2025 12:21pm Complies with drug therapyStart: 05-26-2025 End: 00-78-8905rvqi 1 capsule by mouth once dailyOmeprazole 20 mg capsule,delayed release(DR/EC) Discontinued 20 MG PO Daily May 26, 2025 12:00amJuly 2024 11:58am2 ml ondansetron 2 mg/ml injection (1 source)Serotonin-3 Receptor AntagonistStart: 04-23-2025 End: 82-95-2436rbrd 4 mg intravenously every four hours as needed for nausea and vomitingPotassium (20 sources)Start: 04-28-2024 End: 02-49-1176evig 1 tablet by mouth once dailyPotassium 20 mg tablet,chewable Discontinued 20 MG PO Daily April 28, 2024 12:00am April 282:44pmStart: 04-28-2024 End: 67-86-8587zldp 20 mg by mouth once dailyPotassium Discontinued 20 MG PO Daily April 28, 2024 12:00am April 28, 2024 12:44pmStart: 30-98-9923gsor 20 mg by mouth once dailyPotassium Active 20 MG PO Daily April 28, 2024 12:00amStart: 07-02-2017 End: 62-01-7272izik 1 tablet by mouth once dailyPotassium 99 mg Tablet Discontinued 99 MG PO daily July 02, 2017 12:00am March 04, 2019 8:10am Potassium 75 MG tablet Potassium ActivePotassium Activepravastatin sodium 80 mg oral tablet (11 sources)HMG-CoA Reductase InhibitorStart: 07-02-2017 End: 26-07-1145witp 1 tablet by mouth once daily at bedtimePravastatin 80 mg Tablet Discontinued 80 MG PO Daily at bedtime July 02, 2017 12:00am December 27, 2023 3:70ju7889 ml sodium chloride 9 mg/ml injection (4 sources)Start: 04-23-2025 End: mL, intravenous, Every 12 hours scheduled, First dose on [facility] 04/23/25 at 0015Start: 04-23-2025 End: 44-35-3776vila 75 mL intravenously every hour75 mL/hr, intravenous, Continuous, Starting on [facility] 04/23/25 at 0015, For 18 hoursStart: 04-23-2025 End: 18-69-4442Noqgo: 04-23-2025 End: 38-30-9624gnmzfagietl succinate 10 mg oral tablet (20 sources)Cholinergic Muscarinic AntagonistStart: 11-28-2022 End: 78-42-0382vnga 1 tablet by mouth once dailySolifenacin 10 mg tablet Discontinued 10 MG PO Daily December 27, 2023 1:00am December 31, 2023 11:31amTriamcinolone (18 sources)CorticosteroidStart: 45-65-4928Gmwds: 80-21-3579Fknuljv -40 mg Oct, 60 mgStart: 45-44-9209Usqbo: 72-04-3363Thlrtuo -40 mg Aug, 40 mgtrospium chloride 20 mg oral tablet (20 sources)Cholinergic Muscarinic AntagonistStart: 02-16-2025 End: 37-73-9678hjmb 1 tablet by mouth twice dailyTrospium 20 mg tablet Discontinued 20 MG PO Twice daily February 16, 2025 12:00am April 16, 2025 2:0 5pm administer on an empty stomachStart: 03-04-2019 End: 27-22-6237eaom 1 capsule by mouth once dailyTrospium 60 mg capsule,extended release 24hr Discontinued 60 MG PO Daily March 04, 2019 12:00am December 27, 2023 3:30pmtrospium (Sanctura) 20 MG tablet every 12 (twelve) hours. Activetake 1 tablet by mouth every twenty-four hoursTrospium Chloride 20 MG 1 tablet at bedtime on an empty stomach Orally Once a day Activevitamin b12 1 mg oral tablet (20 sources)Vitamin P39Ikbrk: 04-23-2025 End: 94-71-5505hryc 1000 ug by mouth once daily1,000 mcg, oral, Daily, First dose on [facility] 04/23/25 at 0900Start: 72-93-4819dioh 1 capsule by mouth once daily Cyanocobalamin (Vitamin B-12) 1,000 mcg capsule Active 1000 MCG PO Daily April 28, 2024 12:00am Complies with drug therapytake 1 tablet by mouth once daily cyanocobalamin, vitamin B-12, (Vitamin B-12) 1,000 mcg tablet extended release Take 1 tablet (1,000mcg) by mouth once daily. ActiveViteyes Complete CAPS (6 sources)Viteyes Complete CAPS TAKE 1 CAPSULE Daily Quantity: 0 Refills: 0 Ordered: 28-Mar-2022 DO Active Problems Active Problems Problem ClassificationProblemDateDocumented DateEpisodic/ChronicAbdominal hernia (20 sources)Right inguinal yjnfvr09-29-0514RelagwasUucwgwgj foot deformities (20 sources)Right foot drop; Translations: [Foot drop, right foot]Onset: 849497-32-7433CvwsrqxoLzfxebf disorders (4 sources)Generalized anxiety disorder; Translations: [Generalized anxiety disorder]37-45-8246YejufniPxidgwwz (20 sources)Bilateral pseudophakia; Translations: [Presence of intraocular lens] Onset: 03-12-2023 Resolved: 775027-31-6475BvnwqisKlcmwfnn atherosclerosis and other heart disease (20 sources)Coronary arteriosclerosis; Translations: [Recurrent coronary arteriosclerosis after percutaneous transluminal coronary angioplasty]Onset: 78-20-1023UzowqmdXiincsd on above:PCI/stent 06/2019Problem List clean-up per request of Phys. EHR CmtePCI/stent 06/2019 ,Echo: LVEF 55%, JUSTINO, normal RV size/function, RVSP 21, Ao 4.7cm - 81210Uqfylsts atherosclerosis and other heart disease (18 sources)Past history of procedure; Translations: [Percutaneous transluminal coronary angioplasty status]Onset: 657673-94-7870KtynfjbnJqelvaof mellitus without complication (20 sources)Impaired fasting glucose; Translations: [Impaired fasting glycemia] EpisodicDisorders of lipid metabolism (20 sources)Dyslipidemia; Translations: [Other and unspecified hyperlipidemia] Onset: 424839-34-2119MgrnwrlVxgiiucbn hypertension (20 sources)Essential hypertension; Translations: [Unspecified essential hypertension]Onset: 561563-30-4691UmsoxegQqfmm and electrolyte disorders (6 sources)Hypokalemia; Translations: [Hypopotassemia]EpisodicGenitourinary symptoms and ill-defined conditions (20 sources)Incontinence without sensory awareness; Translations: [Post- micturition incontinence ]Onset: 057854-82-9575FkaksysNyjrgqnjasxgx symptoms and ill-defined conditions (20 sources)Dysuria; Translations: [[place] hematuria]Onset: EpisodicHyperplasia of prostate (20 sources)Benign prostatic hyperplasia; Translations: [Hypertrophy (benign) of prostate without urinary obstruction and other lower urinary tract symptom (LUTS)]Onset: 30-40-1773UgkhlfmWjobgkhyoptp; infection of eye (except that caused by tuberculosis or sexually transmitteddisease) (7 sources)Blepharitis of upper and lower eyelids of bilateral eyes; Translations: [Unspecified blepharitis right eye, upper and lower eyelids]Onset: 233655-49-0779VqusavzlJhrlsaewpxic conditions of male genital organs (20 sources)Chronic itprlkrttdo14-39-4956ClcdoctQqjpmjwoirdu injury (2 sources)Concussion injury of body structure; Translations: [Concussion] 30-76-3883HobxbrjyCeoidpzppaqcex (20 sources)Arthritis of finger of left hand; Translations: [Primary osteoarthritis, left hand]Onset: 205055-31-8292SkwihaaGacev connective tissue disease (1 source)Presence of right artificial knee joint; Translations: [Presence of right artificial knee joint]Onset: 29-96-4587XejytnhMpnsu connective tissue disease (20 sources)Artificial knee joint present; Translations: [Presence of unspecified artificial knee joint]Onset: 006144-93-0125PvkzyoxEpagp connective tissue disease (20 sources)History of total knee arthroplasty; Translations: [Presence of right artificial knee joint]Onset: 895050-19-1182YicjwfpZmchl connective tissue disease (1 source)History of right total knee replacement; Translations: [Presence of right artificial knee joint]30-47-2906ElpptbfWplgx connective tissue disease (12 sources)Other symptoms and signs involving the musculoskeletal system; Translations: [Other musculoskeletalsymptoms referable to limbs]08-05-2024 EpisodicOther diseases of bladder and urethra (20 sources)Urethral fmjehtunk11-50-5595GljzhdkbEjlck diseases of kidney and ureters (1 source)Urinary tract obstruction; Translations: [Other obstructive and reflux uropathy]Onset: 04-65-4895FgasitckWjets eye disorders (6 sources)Optic atrophy; 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]Onset: 473606-65-8285LdfxpzjQwmds eye disorders (7 sources)Dry eyes; Translations: [Dry eye syndrome of bilateral lacrimal glands]Onset: 455481-44-2376TouqejzyYxtef injuries and conditions due to external causes (20 sources)History of fall; Translations: [History of falling]08-05-2024 EpisodicOther lower respiratory disease (5 sources)Nodule of lung; Translations: [Solitary pulmonary nodule]02-04-2025 EpisodicComment on above:CT: 3-4mm nodules - 02/2025Other male genital disorders (20 sources)Impotence; Translations: [Erectile dysfunction]23-61-3146Pmasqav Other male genital disorders (3 sources)Male erectile dysfunction, unspecified; Translations: [Erectile dysfunction]Onset: 85-51-5553OwqksnaYyurh nervous system disorders (11 sources)Neuropathy; Translations: [Polyneuropathy, unspecified]10-17-2023 ChronicComment on above:Problem List clean-up per request of Phys. EHR CmteOther nervous system disorders (9 sources)Chronic pain; Translations: [Other chronic pain]ChronicOther nervous system disorders (1 source)Other chronic painChronicOther nervous system disorders (20 sources)Polyneuropathy; Translations: [Polyneuropathy, unspecified]Onset: 695596-98-3664YueifofTkhmg nervous system disorders (6 sources)Polyneuropathy, unspecified; Translations: [Unspecified hereditary and idiopathic peripheral neuropathy]ChronicOther nervous system disorders (20 sources)Difficulty walking; Translations: [Difficulty in walking, not elsewhere classified]Onset: 501977-95-1023CrfhvtdAytww nervous system disorders (20 sources)Chronic inflammatory demyelinating polyradiculoneuropathy; 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]Onset: 07-14-2024 15-59-2242GjhfgjxPrftd nervous system disorders (1 source)Idiopathic peripheral neuropathy; Translations: [Hereditary and idiopathic neuropathy, unspecified]77-70-2975RowuteeWgmav nervous system disorders (2 sources)Other abnormalities of gait and mobility; Translations: [OTHER ABNORMALITIES GAIT AND MOBILITY]Onset: 29-19-6734TryudexcHmgmm nervous system disorders (8 sources)General unsteadiness; Translations: [Unsteadiness on feet]06-13-2024 EpisodicOther nervous system disorders (4 sources)Bradykinesia; Translations: [Other abnormal involuntary movements] 44-39-1550OhugelghZtobg non-traumatic joint disorders (20 sources)Derangement of right shoulder joint; Translations: [Other specific joint derangements of right shoulder, not elsewhere classified]Onset: 03-12-2023 56-18-8496HjgrpiaFbmuw non-traumatic joint disorders (2 sources)Arthritis of left xsjk97-14-9423AvgwrvpVuadm non-traumatic joint disorders (15 sources)Pain in left knee; Translations: [Pain in joint, lower leg] 08-64-6913XjhjjcddCdehl non-traumatic joint disorders (18 sources)Enthesopathy of hip region; Translations: [Other specified joint disorders, left hip]52-26-4331UmsqbinlQobhz non-traumatic joint disorders (2 sources)Swelling of knee joint; Translations: [Effusion, right knee] 34-12-3925KfvfucspIpubt non-traumatic joint disorders (4 sources)Disorder of shoulder; Translations: [Other specified joint disorders, left shoulder]35-97-9883FqhjiipfFbicp non-traumatic joint disorders (2 sources)Pain in left shoulder; Translations: [Pain in joint, shoulder region] 96-84-5939IgegsjwmOyrxf nutritional; endocrine; and metabolic disorders (2 sources)Obesity; Translations: [Obesity, unspecified]ChronicOther nutritional; endocrine; and metabolic disorders (20 sources)Body mass index 30+ - obesity; Translations: [Body mass index (BMI) 31.0-31.9, adult]Onset: 563155-60-6533YthhtfpQbwnb nutritional; endocrine; and metabolic disorders (6 sources)Obese class I; Translations: [Obesity, unspecified]Onset: 11-14-2023 22-48-3324BktpoccJhnsh nutritional; endocrine; and metabolic disorders (2 sources)Body mass index (BMI) 34.0-34.9, adult; Translations: [Body mass index (BMI) 34.0-34.9, adult]Onset: 36-97-2522MutnpnmMnodk nutritional; endocrine; and metabolic disorders (8 sources)Overweight in adulthood with body mass index of 25 or more but less than 30; Translations: [Overweight]Onset: 970128-19-5321OrimdsstFrxtx nutritional; endocrine; and metabolic disorders (2 sources)OverweightEpisodicOther nutritional; endocrine; and metabolic disorders (3 sources)Abnormal weight loss; Translations: [Loss of weight]EpisodicOther nutritional; endocrine; and metabolic disorders (2 sources)Abnormal intentional weight loss; Translations: [Abnormal weight loss]93-20-7675PeyqgwliGajfd nutritional; endocrine; and metabolic disorders (10 sources)Overweight; Translations: [Overweight]30-26-0290KribqsonSyjnu nutritional; endocrine; and metabolic disorders (2 sources)Body mass index (BMI) 28.0-28.9, adult; Translations: [Body mass index (BMI) 28.0-28.9, adult]Onset: 85-95-4722UfbjazdjLmjqa screening for suspected conditions (not mental disorders or infectious disease) (20 sources)Echocardiogram abnormal; Translations: [Thallium stress test abnormal]Onset: 439313-63-0268LnjyviruPplyugj on above:Problem List clean- up per request of Phys. EHR CmteResidual codes; unclassified (5 sources)Memory impairment; Translations: [Other amnesia]38-55-3161Gjntguxz Residual codes; unclassified (2 sources)Other amnesia; Translations: [Memory loss]91-78-8054TqrycoikRwwazyiw codes; unclassified (1 source)Pain, unspecified; Translations: [Pain, unspecified]Onset: 03-03-2025 EpisodicResidual codes; unclassified (3 sources)Altered mental status; Translations: [Altered mental status, unspecified]Onset: 04-22-2025 Resolved: 366072-89-1317QyrfvwooJyitvfxs codes; unclassified (1 source)Altered mental status, unspecified; Translations: [Altered mental status, unspecified]Onset: 18-05-0938HgspyypmAkflltvh codes; unclassified (11 sources)Delirium; Translations: [Disorientation, unspecified]04-21-2025 EpisodicComment on above:MRI: no mass, infarct or hemorrhage - 04/2025MRI: no mass, infarct or hemorrhage - 02/2025, 04/2025,EEG: no seizure activity - 02/2025 Screening and history of mental health and substance abuse codes (8 sources)Ex-smoker; Translations: [Personal history of nicotine dependence] Onset: 347461-92-8708NyiqipssNnqpixyxtzx; intervertebral disc disorders; other back problems (20 sources)Spondylosis without myelopathy or radiculopathy, lumbar region; Translations: [Other intervertebraldisc displacement, lumbar region]Onset: 16-04-0024OagejslMxrebxl on above:Problem List clean-up per request of Phys. EHR CmteMRI: L3-5 hardware w/ artifact, mod L1-2 canal stenosis - 04/2025Spondylosis; intervertebral disc disorders; other back problems (13 sources)Degenerative lumbar spinal stenosis; Translations: [Spinal stenosis, lumbar region without neurogenic claudication]23-44-0425ZiqwbwpbBwegats on above:Problem List clean-up per request of Phys. EHR CmteSpondylosis; intervertebral disc disorders; other back problems (2 sources)Spondylosis; intervertebral disc disorders; other back problems; Translations: [L 4-5 SPONDYLOSIS, L 5- S1 HNP (HERNIATED NUCLEUS PULPOSUS)/ RADICULOPATHY]Onset: 45-83-7761Bhxvvidzb-related disorders (4 sources)Nicotine dependence; Translations: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 does not use a race coefficient.Performed By: #### BMP #### [facility] ([facility]) [address] [place] [address] VIRGlucose [Mass/Vol]101 mg/tQOqez38-51QohGegdhh [place] HospitalComment on above:Performed By: #### BMP #### [facility] ([facility]) [address] [place] [address] VIRPotassium [Moles/Vol]3.1 mmol/LLow3.5-5.0[address] HospitalComment on above:Performed By: #### BMP #### [facility] ([facility]) [address] [place] [address] VIRSodium [Moles/Vol]140 mmol/QPxyapf556-562SsiXkmbkt [place] HospitalComment on above:Performed By: #### BMP #### [facility] ([facility]) [address] [place] [address] VIRUrea nitrogen [Mass/Vol]21 mg/dLNormal5-27ProThe Bellevue HospitalComment on above:Performed By: #### BMP #### [facility] ([facility]) [address] [place] [address] VIRBasic Metabolic Panelon 35-53-6518Jluki gap [Moles/Vol]8 mmol/L5 - 15 mmol/[facility] StokesoMedica Health SystemCalcium [Mass/Vol]9.2 mg/dL8.5 - 10.5 mg/dLTuscarawas HospitalChloride [Moles/Vol]103 mmol/L98 - 109 mmol/L [place] HospitalCO2 [Moles/Vol]29 mmol/L22 - 32 mmol/LProMedica Health SystemCreatinine [Mass/Vol]0.71 mg/dL0.60 - 1.30 mg/dLTuscarawas Hospital Comment on above:METHOD TRACEABLE TO IDMS STANDARDEGFR Non-Race Dependent- PINF [place] HospitalComment on above:Reported eGFR is based on the CKD-EPI 2020 equation that does not use a race coefficient. Glucose [Mass/Vol]101 mg/tCVjar37 - 99 mg/dLTuscarawas Hospital Interpretation and review of laboratory resultsAbnormalTuscarawas Hospital Potassium [Moles/Vol]3.1 mmol/LLow3.5 - 5.0 mmol/LProMedica Health SystemSodium [Moles/Vol]140 mmol/L134 - 146 mmol/LProMedica Health SystemUrea nitrogen [Mass/Vol]21 mg/dL5 - 27 mg/dLTuscarawas HospitalCBC WITH AUTO DIFFERENTIAL on 33-08-5599RRICBXGAU ABSOLUTE COUNT (10*3/UL) BY AUTOMATED COUNT0.0 10*3/uL Normal0.0-0.2[facility] HospitalComment on above:Performed By: #### BMP #### [facility] ([facility]) [address] [place] [address] VIRBASOPHILS RELATIVE PERCENT BY AUTOMATED COUNT0.7 %Normal [facility] HospitalComment on above:Performed By: #### BMP #### [facility] ([facility]) [address] [place] [address] VIRCELLAVISION DIFFERENTIAL TYPEAUTOMATED DIFFERENTIALNormal ProMBarberton [facility] HospitalComment on above:Performed By: #### BMP #### [facility] ([facility]) [address] [place] [address] VIREosinophils (Bld) [#/Vol]0.1 10*3/uLNormal0.0-0.4[facility] HospitalComment on above:Performed By: #### BMP #### [facility] ([facility]) [address] [place] [address] VIREOSINOPHILS RELATIVE PERCENT BY AUTOMATED COUNT1.0 %Normal [facility] HospitalComment on above:Performed By: #### BMP #### [facility] ([facility]) [address] [place] [address] VIRErythrocyte distribution width (RBC) [Ratio]14.5 %Normal 11.5-15[facility] HospitalComment on above:Performed By: #### BMP #### [facility] ([facility]) [address] [place] [address] VIRHematocrit (Bld) [Volume fraction]37.5 %Aty67-58TrxKvusop Phoenix HospitalComment on above:Performed By: #### BMP #### [facility] ([facility]) [address] [place] [address] VIRHemoglobin (Bld) [Mass/Vol]12.6 g/fRLkk34-19WooH[address] HospitalComment on above:Performed By: #### BMP #### [facility] ([facility]) [address] [place] [address] VIRLYMPHOCYTES ABSOLUTE COUNT (10*3/UL) BY AUTOMATED COUNT1.1 10*3/uLNormal1.0-3.5[facility] HospitalComment on above:Performed By: #### BMP #### [facility] ([facility]) [address] [place] [address] VIRLYMPHOCYTES RELATIVE PERCENT BY AUTOMATED COUNT15.8 %Normal [facility] HospitalComment on above:Performed By: #### BMP #### [facility] ([facility]) [address] [place] [address] VIRMCH (RBC) [Entitic mass]29.4 eaWfhbjf69-67MykNiicgx [place] HospitalComment on above:Performed By: #### BMP #### [facility] ([facility]) [address] [place] [address] VIRMCHC (RBC) [Mass/Vol]33.7 g/bRUoapjh60-67IrmCuxppr [facility] HospitalComment on above:Performed By: #### BMP #### [facility] ([facility]) [address] [place] [address] VIRMCV (RBC) [Entitic vol][address]rawm48-821[address] HospitalComment on above:Performed By: #### BMP #### [facility] ([facility]) [address] [place] [address] VIRMONOCYTES ABSOLUTE COUNT (10*3/UL) BY AUTOMATED COUNT0.8 10*3/uLNormal0.0-0.9[address] HospitalComment on above:Performed By: #### BMP #### [facility] ([facility]) [address] [place] [address] VIRMONOCYTES RELATIVE PERCENT BY AUTOMATED COUNT11.8 %Normal [facility]MBar[facility] HospitalComment on above:Performed By: #### BMP #### [facility] ([facility]) [address] [place] [address] VIRNEUTROPHILS ABSOLUTE COUNT BY AUTOMATED COUNT5.0 10*3/uL Normal1.5-6.6ProMercy Health Willard Hospitalca [place] HospitalComment on above:Performed By: #### BMP #### [facility] ([facility]) [address] [place] [address] VIRNEUTROPHILS RELATIVE PERCENT BY AUTOMATED COUNT70.7 %Normal [facility]MBar[facility] HospitalComment on above:Performed By: #### BMP #### [facility] ([facility]) [address] [place] [address] VIRPlatelet mean volume (Bld) [Entitic vol]9.4 fLNormal7-12 [facility]MBar[facility] HospitalComment on above:Performed By: #### BMP #### [facility] ([facility]) [address] [place] [address] VIRPlatelets (Bld) [#/Vol]215 10*3/cRDsjbsb854-950HdiZmpguv [place] HospitalComment on above:Performed By: #### BMP #### [facility] ([facility]) [address] [place] [address] VIRRBC COUNT4.30 X10E12/LNormal4.1-5.7Pro[facility] Hospital Comment on above:Performed By: #### BMP #### [facility] ([facility]) [address] [place] [address] VIRWBC (Bld) [#/Vol]7.1 10*3/uLNormal4-11[facility] HospitalComment on above:Performed By: #### BMP #### [facility] ([facility]) [address] [place] [address] VIRCBC auto differentialon [id number] (Bld) [#/Vol]0 10*3/uL0.0 - 0.2 10*3/uLTuscarawas HospitalBasophils/100 WBC (Bld)0.7 % [place] HospitalDifferential cell count method Nom (Bld)AUTOMATED DIFFERENTIALTuscarawas HospitalEosinophils (Bld) [#/Vol]0.1 10*3/uL0.0 - 0.4 10*3/uLTuscarawas HospitalEosinophils/100 WBC (Bld)1 %[place] HospitalErythrocyte distribution width (RBC) [Ratio]14.5 %11.5 - 15 %[place] HospitalHematocrit (Bld) [Volume fraction]37.5 %Low39 - 50 %[place] HospitalHemoglobin (Bld) [Mass/Vol]12.6 g/dLLow13 - 17 g/dLTuscarawas HospitalInterpretation and review of laboratory resultsAbnormalTuscarawas HospitalLymphocytes (Bld) [#/Vol]1.1 10*3/uL1.0 - 3.5 10*3/uLTuscarawas HospitalLymphocytes/100 WBC (Bld)15.8 %[place] HospitalMCH (RBC) [Entitic mass]29.4 pg27 - 34 [facility] HospitalMCHC (RBC) [Mass/Vol]33.7 g/dL32 - 36 g/dLTuscarawas HospitalMCV (RBC) [Entitic vol]87 fL80 - 100 [facility] HospitalMonocytes (Bld) [#/Vol]0.8 10*3/uL0.0 - 0.9 10*3/uLTuscarawas HospitalMonocytes/100 WBC (Bld)11.8 %[place] HospitalNeutrophils (Bld) [#/Vol]5 10*3/uL1.5 - 6.6 10*3/uLTuscarawas HospitalNeutrophils/100 WBC (Bld)70.7 %[place] HospitalPlatelet mean volume (Bld) [Entitic vol]9.4 fL 7 - 12 [facility] HospitalPlatelets (Bld) [#/Vol]215 10*3/uLProMercy Health Willard Hospitalca Health SystemRBC (Bld) [#/Vol]4.3 10*6/[place]wy[place] HospitalWBC LM Ql (Sput) 7.1PHeritage Valley Health SystemMAGNESIUMon 07-37-4611Drtmybuan [Mass/Vol]2.0 mg/dLNormal1.8-2.6[facility] HospitalComment on above: Performed By: #### BMP #### [facility] ([facility]) [address] [place] [address] VIRMagnesiumon 66-75-3907Aofplaubljitvc and review of laboratory resultsNormalTuscarawas HospitalMagnesium [Mass/Vol]2 mg/dL1.8 - 2.6 mg/dLTuscarawas HospitalNo Panel Informationon 45-02-1983BvsOiwkgfTuscarawas HospitalPOTASSIUMon 35-77-5951Lnidlwghp [Moles/Vol]3.4 mmol/LLow3.5-5.0 [facility] HospitalComment on above:Performed By: #### BMP #### [facility] ([facility]) [address] [place] [address] VIRPST TOPon 20-42-2172Gzxql TubeAuto ResultedAscension Eagle River Memorial Hospital SystemPotassiumon 47-66-2288Jytbxojttocsbk and review of laboratory resultsAbnormMagruder HospitalPotassium [Moles/Vol]3.4 mmol/L Low3.5 - 5.0 mmol/LProMedica Mercy Hospital BoonevilleBASIC METABOLIC PANELon 90-79-0946Zyotu gap [Moles/Vol]10 mmol/LNormal5-15[facility] HospitalComment on above:Performed By: #### BMP #### [facility] ([facility]) [address] [place] [address] VIRCalcium [Mass/Vol]9.4 mg/dLNormal8.5-10.5ProMedSelect Medical Cleveland Clinic Rehabilitation Hospital, Avon HospitalComment on above:Performed By: #### BMP #### [facility] ([facility]) [address] [place] [address] VIRChloride [Moles/Vol]104 mmol/VUwwinu07-955WvyQxdbev [place] HospitalComment on above:Performed By: #### BMP #### [facility] ([facility]) [address] [place] [address] VIRCO2 [Moles/Vol]26 mmol/XKhqonz51-01NfoXenfmz [facility] Comment on above:Performed By: #### BMP #### [facility] ([facility]) [address] [place] [address] VIRCreatinine [Mass/Vol]0.59 mg/dLLow0.60-1.30ProThe Bellevue HospitalComment on above:Result Comment: METHOD TRACEABLE TO IDMS STANDARD Performed By: #### BMP #### [facility] ([facility]) [address] [place] [address] VIREGFR (CKD-EPI) NON-RACE DEPENDENT>^90Normal>=60ProThe Bellevue HospitalComment on above:Result Comment: Reported eGFR is based on the CKD-EPI 2020 equation that does not use a race coefficient.Performed By: #### BMP #### [facility] ([facility]) [address] [place] [address] VIRGlucose [Mass/Vol]105 mg/qUQfer12-10DelQnvqczThe Bellevue HospitalComment on above:Performed By: #### BMP #### [facility] ([facility]) [address] [place] [address] VIRPotassium [Moles/Vol]3.0 mmol/LLow3.5-5.0ProCore[facility] Hospital HospitalComment on above:Performed By: #### BMP #### [facility] ([facility]) [address] [place] [address] VIRSodium [Moles/Vol]140 mmol/MPrklnl850-358UluMvoghl [place] HospitalComment on above:Performed By: #### BMP #### [facility] ([facility]) [address] [place] [address] VIRUrea nitrogen [Mass/Vol]20 mg/dLNormal5-27[facility] HospitalComment on above:Performed By: #### BMP #### [facility] ([facility]) [address] [place] [address] VIRBasic Metabolic Panelon 46-72-9351Efsre gap [Moles/Vol]10 mmol/L5 - 15 mmol/[facility] SystemCalcium [Mass/Vol]9.4 mg/dL8.5 - 10.5 mg/dLTuscarawas HospitalChloride [Moles/Vol]104 mmol/L98 - 109 mmol/L [place] HospitalCO2 [Moles/Vol]26 mmol/L22 - 32 mmol/[facility] HospitalCreatinine [Mass/Vol]0.59 mg/dLLow0.60 - 1.30 mg/dLTuscarawas Hospital Comment on above:METHOD TRACEABLE TO IDMS STANDARDEGFR Non-Race Dependent- PINF [place] HospitalComment on above:Reported eGFR is based on the CKD-EPI 2020 equation that does not use a race coefficient. Glucose [Mass/Vol]105 mg/aRHkpl80 - 99 mg/dLTuscarawas Hospital Interpretation and review of laboratory resultsAbnoNovant Health Brunswick Medical Center Potassium [Moles/Vol]3 mmol/LLow3.5 - 5.0 mmol/[facility] SystemSodium [Moles/Vol]140 mmol/L134 - 146 mmol/[facility] SystemUrea nitrogen [Mass/Vol]20 mg/dL5 - 27 mg/dLUniversity of Pennsylvania Health SystemCBC WITH AUTO DIFFERENTIALon [id number] ABSOLUTE COUNT (10*3/UL) BY AUTOMATED COUNT0.1 10*3/uLNormal0.0-0.2PCoshocton Regional Medical CenterComment on above:Performed By: #### BMP #### [facility] ([facility]) [address] [place] [address] VIRBASOPHILS RELATIVE PERCENT BY AUTOMATED COUNT1.2 %Normal [facility] HospitalComment on above:Performed By: #### BMP #### [facility] ([facility]) [address] [place] [address] VIRCELLAVISION DIFFERENTIAL TYPEAUTOMATED DIFFERENTIALNormal ProMBarberton [facility] Hospital HospitalComment on above:Performed By: #### BMP #### [facility] ([facility]) [address] [place] [address] VIREosinophils (Bld) [#/Vol]0.1 10*3/uLNormal0.0-0.4[facility] HospitalComment on above:Performed By: #### BMP #### [facility] ([facility]) [address] [place] [id number] VIREOSINOPHILS RELATIVE PERCENT BY AUTOMATED COUNT1.1 %Normal [facility] HospitalComment on above:Performed By: #### BMP #### [facility] ([facility]) [address] [place] [address] VIRErythrocyte distribution width (RBC) [Ratio]14.6 %Normal 11.5-15ProMercy Health Willard Hospitalca [place] HospitalComment on above:Performed By: #### BMP #### [facility] ([facility]) [address] [place] [address] VIRHematocrit (Bld) [Volume fraction]37.7 %[id number] Phoenix HospitalComment on above:Performed By: #### BMP #### [facility] ([facility]) [address] [place] [address] VIRHemoglobin (Bld) [Mass/Vol]13.0 g/cXRinwnp40-32WpfUjskyn Phoenix HospitalComment on above:Performed By: #### BMP #### [facility] [facility] ([facility]) [address] [place] [address] VIRLYMPHOCYTES ABSOLUTE COUNT (10*3/UL) BY AUTOMATED COUNT1.0 10*3/uLNormal1.0-3.5[address] HospitalComment on above:Performed By: #### BMP #### [facility] ([facility]) [address] [place] [address] VIRLYMPHOCYTES RELATIVE PERCENT BY AUTOMATED COUNT14.1 %Normal [facility] HospitalComment on above:Performed By: #### BMP #### [facility] ([facility]) [address] [place] [address] VIRMCH (RBC) [Entitic mass]29.[address]cldqc86-19[address]scT[address] HospitalComment on above:Performed By: #### BMP #### [facility] ([facility]) [address] [place] [address] VIRMCHC (RBC) [Mass/Vol]34.6 g/hQLoeesj43-06CdcJlmfop [address] HospitalComment on above:Performed By: #### BMP #### [facility] ([facility]) [address] [place] [address] VIRMCV (RBC) [Entitic vol][address]r45-[address] HospitalComment on above:Performed By: #### BMP #### [facility] ([facility]) [address] [place] [address] VIRMONOCYTES ABSOLUTE COUNT (10*3/UL) BY AUTOMATED COUNT0.7 10*3/uLNormal0.0-0.9[address] HospitalComment on above:Performed By: #### BMP #### [facility] ([facility]) [address] [place] [address] VIRMONOCYTES RELATIVE PERCENT BY AUTOMATED COUNT10.1 %Normal [address] HospitalComment on above:Performed By: #### BMP #### [facility] ([facility]) [address] [place] [address] VIRNEUTROPHILS ABSOLUTE COUNT BY AUTOMATED COUNT5.1 10*3/uL Normal1.5-6.6[address] HospitalComment on above:Performed By: #### BMP #### [facility] ([facility]) [address] [place] [address] VIRNEUTROPHILS RELATIVE PERCENT BY AUTOMATED COUNT73.5 %Normal [facility] HospitalComment on above:Performed By: #### BMP #### [facility] ([facility]) [address] [place] [address] VIRPlatelet mean volume (Bld) [Entitic vol]9.0 fLNormal7-12 [facility] HospitalComment on above:Performed By: #### BMP #### [facility] ([facility]) [address] [place] [address] VIRPlatelets (Bld) [#/Vol]205 10*3/vTOvunoh486-293BsuZiqbks [place] HospitalComment on above:Performed By: #### BMP #### [facility] ([facility]) [address] [place] [address] VIRRBC COUNT4.35 X10E12/LNormal4.1-5.7[facility] Comment on above:Performed By: #### BMP #### [facility] ([facility]) [address] [place] [address] VIRWBC (Bld) [#/Vol]7.0 10*3/uLNormal4-11ProThe Bellevue HospitalComment on above:Performed By: #### BMP #### [facility] ([facility]) [address] [place] [address] VIRCBC auto differentialon [id number] (Bld) [#/Vol]0.1 10*3/uL0.0 - 0.2 10*3/uLProMercy Health St. [facility] SystemBasophils/100 WBC (Bld)1.2 % [place] HospitalDifferential cell count method Nom (Bld)AUTOMATED DIFFERENTIALProMercy Health St. [facility] Hospital SystemEosinophils (Bld) [#/Vol]0.1 10*3/uL0.0 - 0.4 10*3/[facility] HospitalEosinophils/100 WBC (Bld)1.1 %[place] HospitalErythrocyte distribution width (RBC) [Ratio]14.6 %11.5 - 15 %[place] HospitalHematocrit (Bld) [Volume fraction]37.7 %Low39 - 50 %[place] HospitalHemoglobin (Bld) [Mass/Vol]13 g/dL13 - 17 g/dLTuscarawas HospitalInterpretation and review of laboratory resultsAbnormalTuscarawas HospitalLymphocytes (Bld) [#/Vol]1 10*3/uL1.0 - 3.5 10*3/[facility] Lymphocytes/100 WBC (Bld)14.1 %[place] HospitalMCH (RBC) [Entitic mass] 29.9 pg27 - 34 [facility] HospitalMCHC (RBC) [Mass/Vol]34.6 g/dL32 - 36 g/dLTuscarawas HospitalMCV (RBC) [Entitic vol]87 fL80 - 100 [facility] HospitalMonocytes (Bld) [#/Vol]0.7 10*3/uL0.0 - 0.9 10*3/[facility] HospitalMonocytes/100 WBC (Bld)10.1 %[place] HospitalNeutrophils (Bld) [#/Vol]5.1 10*3/uL1.5 - 6.6 10*3/[place] HospitalNeutrophils/100 WBC (Bld)73.5 %[place] HospitalPlatelet mean volume (Bld) [Entitic vol]9 fL7 - 12 [facility] HospitalPlatelets (Bld) [#/Vol]205 10*3/[place] HospitalRBC (Bld) [#/Vol]4.35 10*6/[place] HospitalWBC LM Ql (Sput)7 [facility] Health SystemBASIC METABOLIC PANELon 04-25-2025 Anion gap [Moles/Vol]11 mmol/LNormal5-15[facility] HospitalComment on above:Performed By: #### BMP #### [facility] ([facility]) [address] [place] [address] VIRCalcium [Mass/Vol]9.2 mg/dLNormal8.5-10.5PBerger Hospital HospitalComment on above:Performed By: #### BMP #### [facility] ([facility]) [address] [place] [address] VIRChloride [Moles/Vol]106 mmol/MEttklg04-913XcgFevuyo [place] HospitalComment on above:Performed By: #### BMP #### [facility] ([facility]) [address] [place] [address] VIRCO2 [Moles/Vol]24 mmol/CCcztyx40-91ZpxUcovyq [place] [facility] Comment on above:Performed By: #### BMP #### [facility] ([facility]) [address] [place] [address] VIRCreatinine [Mass/Vol]0.57 mg/dLLow0.60-1.30Pro[facility] Hospital HospitalComment on above:Result Comment: METHOD TRACEABLE TO IDMS STANDARD Performed By: #### BMP #### [facility] ([facility]) [address] [place] [address] VIREGFR (CKD-EPI) NON-RACE DEPENDENT>^90Normal>=60ProCorey Hospital HospitalComment on above:Result Comment: Reported eGFR is based on the CKD-EPI 2020 equation that does not use a race coefficient.Performed By: #### BMP #### [facility] ([facility]) [address] [place] [address] VIRGlucose [Mass/Vol]96 mg/gZTyttsg68-93BmnSsjwoh [place] HospitalComment on above:Performed By: #### BMP #### [facility] ([facility]) [address] [place] [address] VIRPotassium [Moles/Vol]3.4 mmol/LLow3.5-5.0Pro[facility] Hospital HospitalComment on above:Performed By: #### BMP #### [facility] ([facility]) [address] [place] [address] VIRSodium [Moles/Vol]141 mmol/MNncqcu443-307MagUfnmpx [place] HospitalComment on above:Performed By: #### BMP #### [facility] ([facility]) [address] [place] [address] VIRUrea nitrogen [Mass/Vol]21 mg/dLNormal5-27ProThe Bellevue HospitalComment on above:Performed By: #### BMP #### [facility] ([facility]) [address] [place] [address] VIRBasic Metabolic Panelon [id number] gap [Moles/Vol]11 mmol/L5 - 15 mmol/LProMedica Health SystemCalcium [Mass/Vol]9.2 mg/dL8.5 - 10.5 mg/dLMercy Health Urbana Hospital SystemChloride [Moles/Vol]106 mmol/L98 - 109 mmol/L [place] HospitalCO2 [Moles/Vol]24 mmol/L22 - 32 mmol/[facility] Hospitalica Health SystemCreatinine [Mass/Vol]0.57 mg/dLLow0.60 - 1.30 mg/dLTuscarawas Hospital Comment on above:METHOD TRACEABLE TO IDMS STANDARDEGFR Non-Race Dependent- PINF [place] HospitalComment on above:Reported eGFR is based on the CKD-EPI 2020 equation that does not use a race coefficient. Glucose [Mass/Vol]96 mg/dL65 - 99 mg/dLTuscarawas HospitalInterpretation and review of laboratory resultsAbnormalMercy Health Urbana Hospital SystemPotassium [Moles/Vol]3.4 mmol/LLow3.5 - 5.0 mmol/LProMedica Health SystemSodium [Moles/Vol]141 mmol/L134 - 146 mmol/LProMedica Health SystemUrea nitrogen [Mass/Vol]21 mg/dL5 - 27 mg/dLUniversity of Pennsylvania Health SystemCBC WITH AUTO DIFFERENTIALon [id number] ABSOLUTE COUNT (10*3/UL) BY AUTOMATED COUNT0.1 10*3/uLNormal0.0-0.2[facility] HospitalComment on above:Performed By: #### BMP #### [facility] ([facility]) [address] [place] [address] VIRBASOPHILS RELATIVE PERCENT BY AUTOMATED COUNT0.7 %Normal [facility]Bar[facility] HospitalComment on above:Performed By: #### BMP #### [facility] ([facility]) [address] [place] [address] VIRCELLAVISION DIFFERENTIAL TYPEAUTOMATED DIFFERENTIALNormal ProMBarberton [facility] Hospital HospitalComment on above:Performed By: #### BMP #### [facility] ([facility]) [address] [place] [address] VIREosinophils (Bld) [#/Vol]0.2 10*3/uLNormal0.0-0.4[facility] HospitalComment on above:Performed By: #### BMP #### [facility] ([facility]) [address] [place] [address] VIREOSINOPHILS RELATIVE PERCENT BY AUTOMATED COUNT2.5 %Normal [facility] HospitalComment on above:Performed By: #### BMP #### [facility] ([facility]) [address] [place] [address] VIRErythrocyte distribution width (RBC) [Ratio]15.0 %Normal 11.5-15ProMercy Health Willard Hospitalca Phoenix HospitalComment on above:Performed By: #### BMP #### [facility] ([facility]) [address] [place] [address] VIRHematocrit (Bld) [Volume fraction]39.0 %Lfalai72-13KrwXcuwxc [place] HospitalComment on above:Performed By: #### BMP #### [facility] ([facility]) [address] [place] [address] VIRHemoglobin (Bld) [Mass/Vol]13.4 g/tGOyjgja55-29OndYxpxmv [address] HospitalComment on above:Performed By: #### BMP #### [facility] ([facility]) [address] [place] [address] VIRLYMPHOCYTES ABSOLUTE COUNT (10*3/UL) BY AUTOMATED COUNT1.4 10*3/uLNormal1.0-3.5[address] HospitalComment on above:Performed By: #### BMP #### [facility] ([facility]) [address] [place] [address] VIRLYMPHOCYTES RELATIVE PERCENT BY AUTOMATED COUNT17.5 %Normal [facility] HospitalComment on above:Performed By: #### BMP #### [facility] ([facility]) [address] [place] [address] VIRMCH (RBC) [Entitic mass]30.5 ajDxzels86-67YnlQsyfgj [address] HospitalComment on above:Performed By: #### BMP #### [facility] ([facility]) [address] [place] [address] VIRMCHC (RBC) [Mass/Vol]34.4 g/mEDpzgzb90-83NlvUhsubx [address] HospitalComment on above:Performed By: #### BMP #### [facility] ([facility]) [address] [place] [address] VIRMCV (RBC) [Entitic vol][address]kdh76-126PqrTwn[address] HospitalComment on above:Performed By: #### BMP #### [facility] ([facility]) [address] [place] [address] VIRMONOCYTES ABSOLUTE COUNT (10*3/UL) BY AUTOMATED COUNT0.9 10*3/uLNormal0.0-0.9[address] HospitalComment on above:Performed By: #### BMP #### [facility] ([facility]) [address] [place] [address] VIRMONOCYTES RELATIVE PERCENT BY AUTOMATED COUNT11.1 %Normal [facility] HospitalComment on above:Performed By: #### BMP #### [facility] ([facility]) [address] [place] [address] VIRNEUTROPHILS ABSOLUTE COUNT BY AUTOMATED COUNT5.5 10*3/uL Normal1.5-6.6ProMercy Health Willard Hospitalca [place] HospitalComment on above:Performed By: #### BMP #### [facility] ([facility]) [address] [place] [address] VIRNEUTROPHILS RELATIVE PERCENT BY AUTOMATED COUNT68.2 %Normal [facility] HospitalComment on above:Performed By: #### BMP #### [facility] ([facility]) [address] [place] [address] VIRPlatelet mean volume (Bld) [Entitic vol]9.2 fLNormal7-12 [facility] HospitalComment on above:Performed By: #### BMP #### [facility] ([facility]) [address] [place] [address] VIRPlatelets (Bld) [#/Vol]204 10*3/hEZqmrng240-433CgpIgsqhf [place] HospitalComment on above:Performed By: #### BMP #### [facility] ([facility]) [address] [place] [address] VIRRBC COUNT4.39 X10E12/LNormal4.1-5.7Pro[facility] Hospital Comment on above:Performed By: #### BMP #### [facility] ([facility]) [address] [place] [address] VIRWBC (Bld) [#/Vol]8.0 10*3/uLNormal4-11[facility] HospitalComment on above:Performed By: #### BMP #### [facility] ([facility]) [address] [place] [address] VIRCBC auto differentialon [id number] (Bld) [#/Vol]0.1 10*3/uL0.0 - 0.2 10*3/[facility] HospitalBasophils/100 WBC (Bld)0.7 % [place] HospitalDifferential cell count method Nom (Bld)AUTOMATED DIFFERENTIALTuscarawas HospitalEosinophils (Bld) [#/Vol]0.2 10*3/uL0.0 - 0.4 10*3/[place] HospitalEosinophils/100 WBC (Bld)2.5 %[place] HospitalErythrocyte distribution width (RBC) [Ratio]15 %11.5 - 15 %[place] HospitalHematocrit (Bld) [Volume fraction]39 %39 - 50 %[place] HospitalHemoglobin (Bld) [Mass/Vol]13.4 g/dL13 - 17 g/dLTuscarawas Hospital Lymphocytes (Bld) [#/Vol]1.4 10*3/uL1.0 - 3.5 10*3/[facility] Lymphocytes/100 WBC (Bld)17.5 %[place] HospitalMCH (RBC) [Entitic mass] 30.5 pg27 - 34 pgPKettering Health TroyMCHC (RBC) [Mass/Vol]34.4 g/dL32 - 36 g/dLTuscarawas HospitalMCV (RBC) [Entitic vol]89 fL80 - 100 [facility] HospitalMonocytes (Bld) [#/Vol]0.9 10*3/uL0.0 - 0.9 10*3/[place] HospitalMonocytes/100 WBC (Bld)11.1 %[place] HospitalNeutrophils (Bld) [#/Vol]5.5 10*3/uL1.5 - 6.6 10*3/uLTuscarawas HospitalNeutrophils/100 WBC (Bld)68.2 %[place] HospitalPlatelet mean volume (Bld) [Entitic vol]9.2 fL 7 - 12 [facility] HospitalPlatelets (Bld) [#/Vol]204 10*3/[place] HospitalRBC (Bld) [#/Vol]4.39 10*6/[facility] HospitalWBC LM Ql (Sput)8[facility] Health SystemFL SWALLOW MOTILITY FUNCTIONon 14-18-1722QB SWALLOW MOTILITY FUNCTIONFL SWALLOW MOTILITY FUNCTION FL SWALLOW MOTILITY FUNCTION [...] Juan R Jeffrey MD on 04/24/2025 11:15 [facility] videography Hypopharynx and Esophagus Viewson [id number] SWALLOW MOTILITY FUNCTION HISTORY: Oropharyngeal dysphagia COMPARISON: [...] Juan R Jeffrey MD on 04/24/2025 11:15 Juan R Branham MD - 04/24/2025 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 [place] [address] VIRAmmoniaon [id number] (P) [Moles/Vol]22 umol/L18 - 72 umol/LProMedica Health SystemComment on above:R-Specimen slightly hemolyzed, results increasedInterpretation and review of laboratory resultsNormalUniversity of Pennsylvania Health SystemBASIC METABOLIC PANELon 68-83-0813Bnddb gap [Moles/Vol]9 mmol/LNormal5-15ProThe Bellevue HospitalComment on above:Performed By: #### BMP #### [facility] ([facility]) [address] [place] [address] VIRCalcium [Mass/Vol]9.1 mg/dLNormal8.5-10.5PCoshocton Regional Medical CenterComment on above:Performed By: #### BMP #### [facility] ([facility]) [address] [place] [address] VIRChloride [Moles/Vol]108 mmol/CVnlteb12-207TcsQwopog [place] HospitalComment on above:Performed By: #### BMP #### [facility] ([facility]) [address] [place] [address] VIRCO2 [Moles/Vol]26 mmol/HXsgkqo81-43JzbYxrzeh [place] [facility] Comment on above:Performed By: #### BMP #### [facility] ([facility]) [address] [place] [address] VIRCreatinine [Mass/Vol]0.62 mg/dLNormal0.60-1.30ProThe Bellevue HospitalComment on above:Result Comment: METHOD TRACEABLE TO IDMS STANDARDPerformed By: #### BMP #### [facility] ([facility]) [address] [place] [address] VIREGFR (CKD-EPI) NON-RACE DEPENDENT>^90Normal>=60ProThe Bellevue HospitalComment on above:Result Comment: Reported eGFR is based on the CKD-EPI 2020 equation that does not use a race coefficient.Performed By: #### BMP #### [facility] ([facility]) [address] [place] [address] VIRGlucose [Mass/Vol]102 mg/pXYbsm24-04ImcEplypa [place] HospitalComment on above:Performed By: #### BMP #### [facility] ([facility]) [address] [place] [address] VIRPotassium [Moles/Vol]3.8 mmol/LNormal3.5-5.0ProThe [facility]vue HospitalComment on above:Result Comment: R-Specimen moderately hemolyzed, results increasedPerformed By: #### BMP #### [facility] ([facility]) [address] [place] [address] VIRSodium [Moles/Vol]143 mmol/DCmzxbh093-095OfoHokhgm [place] HospitalComment on above:Performed By: #### BMP #### [facility] ([facility]) [address] [place] [address] VIRUrea nitrogen [Mass/Vol]16 mg/dLNormal5-27Pro[facility] HospitalComment on above:Performed By: #### BMP #### [facility] ([facility]) [address] [place] [address] VIRBaseline Routine EEGon [id number] from the original result were not included. ID Neurology EEG REPORT EEG Service Date: 04/23/25 Date of Report: 04/23/25 History: Edvin Roland is a 79 y.o. male with long-term post-operative altered mental status since February, who is undergoing EEG to evaluate for seizures. Centrally active medications: None. Procedure: This EEG was acquired with electrodes placed according to the Tdivyrbfsfnlj35-44 electrode placement system. The EEG was acquired [...] follow this study. Cydney Fernandez M.D., Ph.D. Room Clerk ID Neurology MANUALLY TRANSCRIBED RESULTSBaseline Routine EEGOrdered By: Cydney Myers on [id number] Hospital Work Phone: Basic Metabolic Panelon 97-67-1203Hgyml gap [Moles/Vol]9 mmol/L5 - 15 mmol/LPrMiddle Park Medical Center Health SystemCalcium [Mass/Vol]9.1 mg/dL8.5 - 10.5 mg/dLProMercy Health St. [facility] Hospital SystemChloride [Moles/Vol]108 mmol/L98 - 109 mmol/LProMedica Health SystemCO2 [Moles/Vol]26 mmol/L22 - 32 mmol/LPrSumma Health Wadsworth - Rittman Medical Center SystemCreatinine [Mass/Vol]0.62 mg/dL0.60 - 1.30 mg/dLTuscarawas HospitalComment on above:METHOD TRACEABLE TO IDMS STANDARDEGFR Non-Race Dependent- [facility] CenterComment on above:Reported eGFR is based on the CKD-EPI 2020 equation that does not use a race coefficient. Glucose [Mass/Vol]102 mg/nAOyyd74 - 99 mg/dLTuscarawas Hospital Interpretation and review of laboratory resultsAbnormalTuscarawas Hospital Potassium [Moles/Vol]3.8 mmol/L3.5 - 5.0 mmol/[facility] SystemComment on above:R-Specimen moderately hemolyzed, results increasedSodium [Moles/Vol]143 mmol/L134 - 146 mmol/LPrShriners Hospitals for Childrenica Health SystemUrea nitrogen [Mass/Vol]16 mg/dL5 - 27 mg/dLUniversity of Pennsylvania Health SystemCBC WITH AUTO DIFFERENTIALon [id number] DIFFERENTIAL TYPEMANUAL DIFFERENTIALNormal ProMHolzer Medical Center – JacksonComment on above:Result Comment: This is an appended report. These results have been appended to a previously preliminary verified report.Performed By: #### CBCA #### [facility] ([facility]) [address] [place] [address] VIRCELLAVISION EOSINOPHILS ABSOLUTE COUNT (10*3/UL) BY MANUAL COUNT0.1 10*3/uLNormal0.0-0.4[facility] Anderson HospitalComment on above:Result Comment: This is an appended report. These results have been appended to a previously preliminary verified report.Performed By: #### CBCA #### [facility] ([facility]) [address] [place] [address] VIRCELLAVISION EOSINOPHILS PERCENT BY MANUAL COUNT2 %Normal ProMw. d. partlow developmental centera Phoenix HospitalComment on above:Result Comment: This is an appended report. These results have been appended to a previously preliminary verified report.Performed By: #### CBCA #### [facility] ([facility]) [address] [place] [address] VIRCELLAVISION LYMPHOCYTES ABSOLUTE COUNT (10*3/UL) BY MANUAL COUNT1.3 10*3/uLNormal1.0-3.5[facility] HospitalComment on above:Result Comment: This is an appended report. These results have been appended to a previously preliminary verified report.Performed By: #### CBCA #### [facility] ([facility]) [address] [place] [address] VIRCELLAVISION LYMPHOCYTES RELATIVE PERCENT BY MANUAL COUNT18 % NormalProCorey Hospital HospitalComment on above:Result Comment: This is an appended report. These results have been appended to a previously preliminary verified report.Performed By: #### CBCA #### [facility] H[facility]PITAL LAB[facility]ATORY ([facility]) [address] [place] [address] VIRCELLAVISION METAMYELOCYTES RELATIVE PERCENT BY MANUAL COUNT2 %NormalProCorey Hospital HospitalComment on above:Result Comment: This is an appended report. These results have been appended to a previously preliminary verified report.Performed By: #### CBCA #### [facility] ([facility]) [address] [place] [address] VIRCELLAVISION MONOCYTES ABSOLUTE COUNT (10*3/UL) IN BLOOD BY MANUAL COUNT0.7 10*3/uLNormal0.0-0.9Pro[facility] Phoenix HospitalComment on above: Result Comment: This is an appended report. These results have been appended to a previously preliminary verified report.Performed By: #### CBCA #### [facility] ([facility]) [address] [place] [address] VIRCELLAVISION MONOCYTES RELATIVE PERCENT BY MANUAL COUNT10 % NormalProMedica Phoenix HospitalComment on above:Result Comment: This is an appended report. These results have been appended to a previously preliminary verified report.Performed By: #### CBCA #### [facility] ([facility]) [address] [place] [address] VIRCELLAVISION MYELOCYTE RELATIVE PERCENT BY MANUAL COUNT1 % NormalProMedica Phoenix HospitalComment on above:Result Comment: This is an appended report. These results have been appended to a previously preliminary verified report.Performed By: #### CBCA #### [facility] ([facility]) [address] [place] [address] VIRCELLAVISION NEUTROPHILS ABSOLUTE COUNT BY MANUAL COUNT5.1 10*3/uLNormal1.5-6.6ProMedica Phoenix HospitalComment on above:Result Comment: This is an appended report. These results have been appended to a previously preliminary verified report.Performed By: #### CBCA #### [facility] ([facility]) [address] [place] [address] VIRCELLAVISION NEUTROPHILS RELATIVE PERCENT BY MANUAL COUNT67 % NormalProMedica Phoenix HospitalComment on above:Result Comment: This is an appended report. These results have been appended to a previously preliminary verified report.Performed By: #### CBCA #### [facility] ([facility]) [address] [place] [address] VIRCELLAVISION RBC MORPHOLOGYNormalNormalProMedica Phoenix HospitalComment on above:Result Comment: This is an appended report. These results have been appended to a previously preliminary verified report.Performed By: #### CBCA #### [facility] ([facility]) [address] [place] [address] VIRErythrocyte distribution width (RBC) [Ratio]14.6 %Normal 11.5-15[address] HospitalComment on above:Performed By: #### CBCA #### [facility] ([facility]) [address] [place] [address] VIRHematocrit (Bld) [Volume fraction]37.9 %Cje42-54IgdZgvccs Phoenix HospitalComment on above:Performed By: #### CBCA #### [facility] ([facility]) [address] [place] [address] VIRHemoglobin (Bld) [Mass/Vol]12.7 g/xEKdg58-92LqaWwkkde [address] HospitalComment on above:Performed By: #### CBCA #### [facility] ([facility]) [address] [place] [address] VIRMCH (RBC) [Entitic mass]30.0 kqZqbept66-46UovBpnffg Phoenix HospitalComment on above:Performed By: #### CBCA #### [facility] ([facility]) [address] [place] [address] VIRMCHC (RBC) [Mass/Vol]33.6 g/vZOjrcju81-25CreGwsbwe Phoenix HospitalComment on above:Performed By: #### CBCA #### [facility] ([facility]) [address] [place] [address] VIRMCV (RBC) [Entitic vol]89 rLCzygjy66-723TgoMfxbxg Phoenix HospitalComment on above:Performed By: #### CBCA #### [facility] ([facility]) [address] [place] [address] VIRPlatelet mean volume (Bld) [Entitic vol]9.2 fLNormal7-12 [facility] HospitalComment on above:Performed By: #### CBCA #### [facility] ([facility]) [address] [place] [address] VIRPlatelets (Bld) [#/Vol]269 10*3/aMKshgpy968-173QvgVbskcm [place] HospitalComment on above:Performed By: #### CBCA #### [facility] ([facility]) [address] [place] [address] VIRRBC COUNT4.25 X10E12/LNormal4.1-5.7[facility] Comment on above:Performed By: #### CBCA #### [facility] ([facility]) [address] [place] [address] VIRWBC (Bld) [#/Vol]7.4 10*3/uLNormal4-11[facility] HospitalComment on above:Performed By: #### CBCA #### [facility] ([facility]) [address] [place] [address] VIRCBC auto differentialon 91-53-8634Yevnazmzhsdo cell count method Nom (Bld)MANUAL DIFFERENTIALTuscarawas HospitalComment on above:This is an appended report. These results have been appended to a previously preliminary verified report.Eosinophils (Bld) [#/Vol]0.1 10*3/uL0.0 - 0.4 10*3/uLTuscarawas HospitalComment on above:This is an appended report. These results have been appended to a previously preliminary verified report. Eosinophils/100 WBC (Bld)2 %[facility]aw[facility] HospitalComment on above:This is an appended report. These results have been appended to a previously preliminary verified report.Erythrocyte distribution width (RBC) [Ratio]14.6 %11.5 - 15 % [facility] SystemHematocrit (Bld) [Volume fraction]37.9 %Low39 - 50 % [facility] SystemHemoglobin (Bld) [Mass/Vol]12.7 g/dLLow13 - 17 g/dL [facility] SystemInterpretation and review of laboratory resultsAbnormal Tuscarawas HospitalLymphocytes (Bld) [#/Vol]1.3 10*3/uL1.0 - 3.5 10*3/uL [facility] HospitalComment on above:This is an appended report. These results have been appended to a previously preliminary verified report.MCH (RBC) [Entitic mass]30 pg27 - 34 [facility] HospitalMCHC (RBC) [Mass/Vol]33.6 g/dL32 - 36 g/dLTuscarawas HospitalMCV (RBC) [Entitic vol]89 fL80 - 100 fL [facility] HospitalMetamyelocytes/100 WBC (Bld)2 %[facility] Comment on above:This is an appended report. These results have been appended to a previously preliminary verified report.Monocytes (Bld) [#/Vol]0.7 10*3/uL0.0 - 0.9 10*3/[place]wy[place] HospitalComment on above:This is an appended report. These results have been appended to a previously preliminary verified report. Monocytes/100 WBC (Bld)10 %[facility] HospitalComment on above:This is an appended report. These results have been appended to a previously preliminary verified report.Myelocytes/100 WBC (Bld)1 %[facility] HospitalComment on above:This is an appended report. These results have been appended to a previously preliminary verified report.Neutrophils (Bld) [#/Vol]5.1 10*3/uL1.5 - 6.6 10*3/[facility]wy[facility] HospitalComment on above:This is an appended report. These results have been appended to a previously preliminary verified report. Neutrophils/100 WBC (Bld)67 %[facility] HospitalComment on above:This is an appended report. These results have been appended to a previously preliminary verified report.Platelet mean volume (Bld) [Entitic vol]9.2 fL7 - 12 [facility] HospitalPlatelets (Bld) [#/Vol]269 10*3/uLTuscarawas HospitalRBC (Bld) [#/Vol]4.25 10*6/uLTuscarawas HospitalRBC (Bld) [#/Vol]NormalTuscarawas HospitalComment on above:This is an appended report. These results have been appended to a previously preliminary verified report.Variant lymphocytes/100 WBC (Bld)18 %[facility] HospitalComment on above:This is an appended report. These results have been appended to a previously preliminary verified report.WBC LM Ql (Sput)7.4[facility] SystemDISCONTINUE IN PROCESS EEG TESTINGOrdered By: Documentation Systemgenerated on 99-84-0522EqwQrmfrrTuscarawas Hospital Work Phone: fl FLUOROSCOPY UP TO 1 HOURon [id number] FLUOROSCOPY UP TO 1 HOURFL FLUOROSCOPY UP TO 1 HOUR FL FLUOROSCOPY [...] Manuelito James MD on 04/23/2025 9:45 AM IWilbert have personally reviewed the image(s) and agree with and/or edited the report Finalized by Wilbert Crews on 04/23/2025 10:07 AMNormalMercy Health Anderson Hospital FOLATEon [id number] ACID>^25.0Normal>5.8ProThe Bellevue HospitalComment on above:Performed By: #### FOLI #### [facility] ([facility]) [address] [place] [address] VIRFolateon 82-75-0902Obdmys [Mass/Vol]ng/mL5.8 - PINF ng/mL [facility] SystemHolter monitor studyon 68-21-5949Avwufs from the original result were not included. ID Neurology Video/EEG Monitoring REPORT EEG Service Date(s): 04/23/25 from 06:05 until 09:09 Date of Report: 04/23/25 History: Edvin Roland is 79 y.o. male with altered mental status who is undergoing video/EEG monitoring to evaluate for seizures. Centrally active medications: None. Procedure: This video/EEG monitoring was acquired with electrodes placed according to the Atdlkewmlkvti72-74 electrode placement system,using collodion. The EEG was [...] on this day. Cydney Fernandez M.D., Ph.D. Room Clerk ID Neurology BackgroundMANUALLY TRANSCRIBED RESULTSProMercy Health St. [facility] Hospital SystemImages from the original result were not included. ID Neurology Video/EEG Monitoring REPORT EEG Service Date(s): 04/23/25 @ 04:26 until 06:05 Date of Report: 04/23/25 History: Edvin Roland is 79 y.o. male with altered mental status who is undergoing video/EEG monitoring to evaluate for seizures. Centrally active medications: None. Procedure: This video/EEG monitoring was acquired with electrodes placed according to the Mzqrakktpfuug75-85 electrode placement system,using collodion. The EEG was [...] of intermittent seizures. Cydney Fernandez M.D., Ph.D. Room Clerk ID Neurology BackgroundMANUALLY TRANSCRIBED RESULTSTuscarawas HospitalLIVER PANELon 54-73-9731Qenpmca [Mass/Vol]3.9 g/dLNormal3.2-5.3PCoshocton Regional Medical Center Comment on above:Performed By: #### LIVR #### [facility] ([facility]) [address] [place] [address] VIRALP [Catalytic activity/Vol]121 U/XWzbwvi55-371SalArbths [place] HospitalComment on above:Performed By: #### LIVR #### [facility] ([facility]) [address] [place] [address] VIRALT [Catalytic activity/Vol]12 U/LNormal<=40ProThe Bellevue HospitalComment on above:Performed By: #### LIVR #### [facility] ([facility]) [address] [place] [address] VIRAST [Catalytic activity/Vol]32 U/LNormal<=41ProThe Bellevue HospitalComment on above:Performed By: #### LIVR #### [facility] ([facility]) [address] [place] [address] VIRBilirubin [Mass/Vol]0.6 mg/dLNormal0.3-1.2PCoshocton Regional Medical CenterComment on above:Performed By: #### LIVR #### [facility] ([facility]) [address] [place] [address] VIRBilirubin.indirect [Mass/Vol]0.1 mg/dLNormal<=0.4ProThe Bellevue HospitalComment on above:Result Comment: R-Specimen moderately hemolyzed, results decreasedPerformed By: #### LIVR #### [facility] ([facility]) [address] [place] [address] VIRProtein [Mass/Vol]6.3 g/dLNormal6.0-8.0[facility] HospitalComment on above:Performed By: #### LIVR #### [facility] ([facility]) [address] [place] [address] VIRLiver panelon 67-64-9532Rtvgpsr [Mass/Vol]3.9 g/dL3.2 - 5.3 g/dLMercy Health Urbana Hospital SystemALP [Catalytic activity/Vol]121 U/L39 - 130 U/L [facility]ed[facility] SystemALT No additional P-5'-P [Catalytic activity/Vol]12 U/L NINF - 40 U/LProMedica Health SystemAST [Catalytic activity/Vol]32 U/LNINF - 41 U/LProMedica [facility] SystemBilirubin [Mass/Vol]0.6 mg/dL0.3 - 1.2 mg/dLTuscarawas HospitalBilirubin.direct [Mass/Vol]0.1 mg/dLNINF - 0.4 mg/dLTuscarawas HospitalComment on above:R-Specimen moderately hemolyzed, results decreased Interpretation and review of laboratory resultsNoNovant Health [facility] Protein [Mass/Vol]6.3 g/dL6.0 - 8.0 g/dLUniversity of Pennsylvania Health SystemNo Panel Informationon 80-37-4660Pupdezgtdpetrz and review of laboratory resultsNoPenn State Health St. Joseph Medical CenterRF Less than 1 houron [id number] FLUOROSCOPY UP TO 1 HOUR HISTORY: Oropharyngeal [...] Deonte James MD on 04/23/2025 9:45 AM Wilbert Rollins have personally reviewed the image(s) and agree with and/or edited the report Finalized by Wilbert Crews on 04/23/2025 10:07 Wilbert De La Rosa MD - 04/23/2025 [place] FLUOROSCOPY UP TO [...] Manuelito James MD on 04/23/2025 9:45 AM IWilbert have personally reviewed the image(s) and agree with and/or edited the report Finalized by Wilbert Crews on 04/23/2025 10:07 AM [place] HospitalRadiology Study observation (narrative)[facility] [employer] [place] [employer] [facility] CenterRF Less than 1 hourOrdered By: Wilbert Crews on 79-09-7858XecLqvqctTuscarawas Hospital Work Phone: TSHon [phone] Qn1.9 m[IU]/[facility] SystemTSH1.90 uIU/mLNormal0.49-4.67[facility] Phoenix HospitalComment on above: Performed By: #### TSH #### [facility] ([facility]) [address] [place] [address] VIRURINALYSISon 97-33-3980Ojrpatsfw Ql (U)NegativeNormal NegativeProMedica Phoenix HospitalComment on above:Performed By: #### UA #### [facility] ([facility]) [address] [place] [address] VIRBLOOD/HGBNegativeNormalNegativeProMedica Phoenix Hospital Comment on above:Performed By: #### UA #### [facility] ([facility]) [address] [place] [address] VIRColor (U)YellowNormalYellow, ColorlessProMedica Phoenix HospitalComment on above:Performed By: #### UA #### [facility] ([facility]) [address] [place] [address] VIRGlucose Ql (U)NegativeNormalNegativeProMedica Phoenix HospitalComment on above:Performed By: #### UA #### [facility] ([facility]) [address] [place] [address] VIRKetones Ql (U)NegativeNormalNegativeProMedica Phoenix HospitalComment on above:Performed By: #### UA #### [facility] ([facility]) [address] [place] [address] VIRLeukocyte esterase Test strip Ql (U)NegativeNormalNegative ProMBarberton Citizens Hospital HospitalComment on above:Performed By: #### UA #### [facility] ([facility]) [address] [place] [address] VIRNitrite Ql (U)NegativeNormalNegativeProMercy Health Willard Hospitalca Phoenix HospitalComment on above:Performed By: #### UA #### [facility] ([facility]) [address] [place] [address] VIRPH,URINE7.8Aokcns0.0-8.5Pro[facility] Phoenix HospitalComment on above:Performed By: #### UA #### [facility] ([facility]) [address] [place] [address] VIRProtein Ql (U)NegativeNormalNegativeProMedica Phoenix HospitalComment on above:Performed By: #### UA #### [facility] ([facility]) [address] [place] [address] VIRSpecific gravity (U) [Rel density]1.050Igihcd8.003-1.035 [facility] HospitalComment on above:Performed By: #### UA #### [facility] ([facility]) [address] [place] [address]Clear[address]Clear[address] HospitalComment on above:Performed By: #### UA #### [facility] ([facility]) [address] [place] [address] VIRUROBILINOGEN<1.1 eu/dLNormal<1.1 eu/dLMercy Health Anderson HospitalComment on above:Performed By: #### UA #### [facility] ([facility]) [address] [place] [address] VIRUrinalysison 03-30-3922Qlylxevkc Ql (U)NegativeNegative [facility] SystemColor (U)YellowYellow, ColorlessProMercy Health St. [facility] System Glucose (U) [Mass/Vol]NegativeNegativeMercy Health Urbana Hospital SystemHemoglobin Auto test strip Ql (U)NegativeNegativeBarnesville Hospital Health SystemInterpretation and review of laboratory resultsNormalBarnesville Hospital Health SystemKetones (U) [Mass/Vol] NegativeNegativeMercy Health Urbana Hospital SystemLeukocyte esterase Auto test strip Ql (U) NegativeNegativeMercy Health Urbana Hospital SystemNitrite Auto test strip Ql (U)Negative NegativeMercy Health Urbana Hospital SystempH (U)7 [pH]5.0 - 8.5PAssumption General Medical Center Health System Protein (U) [Mass/Vol]NegativeNegativeWyandot Memorial Hospitalca Health SystemSpecific gravity Refractometry automated (U) [Rel density]1.021.003 - 1.035ProGreene County Hospital Health SystemTurbidity Ql (U)ClearClearPSCCI Hospital Lima SystemUrobilinogen Qn (U) {Kathia'U}/dL<1.1 eu/dLBarnesville Hospital Health SystemMercy Health Urbana Hospital SystemVITAMIN B12on 72-39-1776Ppipksexv (Vitamin B12) [Mass/Vol]689 pg/wVDzeoyc529-826 [facility] HospitalComment on above:Performed By: #### B12 #### [facility] ([facility]) [address] [place] [address] VIRVitamin B12on 56-13-8854Rdxxxdhln (Vitamin B12) [Mass/Vol] 689 pg/mL180 - 914 pg/mLTuscarawas HospitalBorrelia burgdorferi IgG+IgM Ab [Presence] in Serum by ImmunoassayOrdered By: Beverly Lane on 04-22-2025. burgdorferi IgG+IgM IA Ql (S)NegativeNegativeDoctors Hospital Comment on above:Lyme antibodies not detected. Reflex testing is notindicated.No laboratory evidence of infection with B. burgdorferi(Lyme disease). Negative results may occur in patientsrecently infected (less than or equal to 14 days) with B.burgdorferi. If recent infection is suspected, repeattesting on a new bee ple collected in 7 to 14 days isrecommended.Performed at: [facility] Lab[address] [id number] Director: Harpreet Madden PhD, Phone: [phone] glomerular filtration rate (GFR) non- AmericanOrdered By: Vinny Porter on 48-53-6461ZAE/1.73 sq M.predicted among non-blacks MDRD (S/P/Bld) [Vol rate/Area]mL/min/{1.73_m2}>=60 mL/min/1.73m 2 [facility] HospitalLaboratory - Chemistry and Chemistry - challengeOrdered By: Beverly Lane on 96-23-4561Fbmvbhy (P) [Moles/Vol]11 umol/L 11-32Doctors HospitalHCO3 (Bld) [Moles/Vol]27.9 mmol/LHigh 22.0-26.0Do[facility] HospitalLaboratory - Chemistry and Chemistry - challengeOrdered By: Vinny Porter on 76-07-9819Dyckluv [Mass/Vol]9.2 mg/dL 8.5-10.1FUniversity Hospitals Parma Medical CenterChloride [Moles/Vol]105 mmol/L98-107 Doctors HospitalCO2 [Moles/Vol]28.0 mmol/L21.0-32.0Doctors HospitalCreatinine [Mass/Vol]0.96 mg/dL0.70-1.30Doctors HospitalGFR/1.73 sq M.predicted MDRD (S/P/Bld) [Vol rate/Area] mL/min/{1.73_m2}>=60 mL/min/1.73m 2FUniversity Hospitals Parma Medical CenterGlucose [Mass/Vol]107 mg/zVCedm78-669ZyyxdvunnDoctors HospitalPotassium [Moles/Vol]3.0 mmol/LLow3.5-5.1FMercy Health St. Rita's Medical Centerodium [Moles/Vol]144 mmol/J909-184EoytxpdqjDoctors HospitalUrea nitrogen [Mass/Vol]14.0 mg/dL7.0-18.0Doctors HospitalUrea nitrogen/Creatinine [Mass ratio]14.6 mg/mgDoctors Hospital Laboratory - Hematology and Cell countsOrdered By: Beverly Lane on 85-70-5709YWQ (Bld) [Velocity]21 mm/hHigh<=20Doctors HospitalNo Panel InformationOrdered By: Beverly Lane on [id number]-Vsaourz Vitamin D Total37.1 ng/mL30.0-100.0Doctors HospitalComment on above:Vitamin D deficiency has been defined by the [place] ofMedicine and an Endocrine Society practiceguideline as alevel of serum 25-OH vitamin D less than 20 ng/mL (1,2).The Endocrine Society went onto further define vitamin Dinsufficiency as a level between 21 and 29 ng/mL (2).1. IOM ([place] of [employer]). 2010. Dietary reference intakes for calcium and D. [place]: The National Academies Press.2. Ruel MF, Matias NC, Edmond SOTOMAYOR, et al. Evaluation, treatment, and prevention of vitamin D deficiency: an Endocrine Society clinical practice guideline. JCEM. 2010; 96(7):1911-30.Performed at: - Lab[address] [id number] Director: Harpreet Madden PhD, Phone: [phone]-Geawgnpa Protein, Quantitative<0.50 mg/dL<=0.50Doctors HospitalAllen TestPositivePOSITIVEDoctors HospitalArterial Blood Base Excess4.1 mmol/LHigh<2.0-2.0Doctors HospitalArterial Blood Oxygen Thvgrgkxyp19.2 %[facility] Arterial Blood Partial Pressure CO239.4 mm[Hg]35.0-45.0Doctors HospitalArterial Blood Partial Pressure O268.7 mm[Hg]Low80.0-100.0 Doctors HospitalArterial Blood pH7.816Jtyx7.350-7.450Doctors HospitalBlood Gas Sample SiteRRDoctors Hospital Oxygen Delivery DeviceRASalem Regional Medical Centererum or plasma anion gap determinationOrdered By: Vinny Bairdomar on 46-85-2828Ylewc gap [Moles/Vol] 14.0 mmol/LFUniversity Hospitals Parma Medical CenterBasophils Auto (Bld) [#/Vol]Ordered By: Objovanni Bairdomar on 80-40-4517Jbbaugvqg (Bld) [#/Vol]0.0 10 3/uL0.0-0.1 Doctors HospitalBasophils/100 WBC Auto (Bld)Ordered By: Vinny Bairdomar on 73-86-9397Zushxyvgo/100 WBC (Bld)0.5 %0.2-2.0Doctors HospitalEosinophils/100 WBC Auto (Bld)Ordered By: Objovanni Bairdomar on 85-55-6672Zikvyauwtug/100 WBC (Bld)2.0 %0.9-7.0[facility] Erythrocyte distribution width Auto (RBC) [Ratio]Ordered By: Vinny Bairdomar on 69-59-4454Izjhlwxknyo distribution width (RBC) [Ratio]13.8 %11.0-15.0Doctors HospitalEstimated glomerular filtration rate (GFR) non- AmericanOrdered By: Objovanni Bairdomar on 10-34-0939OAI/1.73 sq M.predicted among non-blacks MDRD (S/P/Bld) [Vol rate/Area]mL/min/{1.73_m2}>=60 mL/min/1.73m 2 Doctors HospitalGlobulin Calc (S) [Mass/Vol]Ordered By: Vinny Bairdomar on 95-32-6794Pdrlvedg (S) [Mass/Vol]3.2 g/dLDoctors HospitalHematocrit Auto (Bld) [Volume fraction]Ordered By: Vinny Porter on 37-42-3868Sjbnyjygac (Bld) [Volume fraction]38.9 %Low42.0-54.0Doctors HospitalHemoglobin [Mass/volume] in BloodOrdered By: Jimmie [place] on 18-44-6491Avgpuabnpb (Bld) [Mass/Vol]13.3 g/dLLow14.0-18.0Doctors HospitalLaboratory - Chemistry and Chemistry - challengeOrdered By: Yamileangel medical center [place] on 17-97-3016Jjmlmuhxh [Moles/Vol]3.2 mmol/LLow3.5-5.1FUniversity Hospitals Parma Medical CenterAlbumin [Mass/Vol]3.2 g/dLLow3.4-5.0Doctors HospitalALP [Catalytic activity/Vol]149 U/SOryl51-292CtqbrdizjDoctors HospitalALT [Catalytic activity/Vol]24 U/W88-06KfshvqscfDoctors HospitalAST [Catalytic activity/Vol]21 U/O13-39WdhazlzywDoctors Hospital Bilirubin [Mass/Vol]0.5 mg/dL0.2-1.0Doctors HospitalCalcium [Mass/Vol]9.2 mg/dL8.5-10.1FUniversity Hospitals Parma Medical CenterChloride [Moles/Vol] 105 mmol/J43-373FmrgwmxuiDoctors HospitalCO2 [Moles/Vol]30.9 mmol/L 21.0-32.0Doctors HospitalCobalamin (Vitamin B12) [Mass/Vol]670 pg/cI780-2881LtyhskwkqDoctors HospitalComment on above:Performed at: - [facility] [address] [id number] Director: Harpreet Madden PhD, Phone: [phone] [Mass/Vol]0.55 mg/dLLow0.70-1.30 Doctors HospitalGFR/1.73 sq M.predicted MDRD (S/P/Bld) [Vol rate/Area]mL/min/{1.73_m2}>=60 mL/min/1.73m 2FUniversity Hospitals Parma Medical Center Glucose [Mass/Vol]103 mg/hI48-255QnmjrtwuwDoctors HospitalMagnesium [Mass/Vol]2.0 mg/dL1.8-2.4FUniversity Hospitals Parma Medical CenterNatriuretic peptide B (Bld) [Mass/Vol]131.0 pg/mL<=1800.0Doctors HospitalProtein [Mass/Vol]6.4 g/dL6.4-8.2FMercy Health St. Rita's Medical Centerodium [Moles/Vol]144 mmol/O115-146ZvxseqwqtDoctors HospitalTSH Qn1.516 m[IU]/L0.358-3.740 Doctors HospitalUrea nitrogen [Mass/Vol]14.0 mg/dL7.0-18.0 Doctors HospitalUrea nitrogen/Creatinine [Mass ratio]25.5 mg/mg Doctors HospitalLaboratory - Hematology and Cell countsOrdered By: Vinny Porter on 40-66-4916Kkrrkptg granulocytes/100 WBC (Bld)0.6 %High 0.0-0.5FUniversity Hospitals Parma Medical CenterLeukocytes [#/volume] corrected for nucleated erythrocytes in Blood by Automated counOrdered By: Vinny Bairdomar on 32-78-4972WOF corrected for nucl RBC Auto (Bld) [#/Vol]6.6 10 3/uL4.0-11.0 Doctors HospitalLymphocytes Auto (Bld) [#/Vol]Ordered By: Objovanni Bairdomar on 11-68-9661Okvyidbifqx (Bld) [#/Vol]1.4 10 3/uL1.2-3.8 Doctors HospitalLymphocytes/100 WBC Auto (Bld)Ordered By: Objovanni Bairdomar on 43-15-7664Phlkszufwvx/100 WBC (Bld)21.0 %20.5-60.0[facility] Auto (RBC) [Entitic mass]Ordered By: Objovanni Bairdomar on 16-94-3918OLO (RBC) [Entitic mass]30.6 pg25.9-34.0Doctors HospitalMC Auto (RBC) [Mass/Vol]Ordered By: Vinny Bairdomar on 75-25-1485WPXN (RBC) [Mass/Vol]34.2 g/dL29.9-35.2FUniversity Hospitals Parma Medical CenterMCV Auto (RBC) [Entitic vol]Ordered By: Objovanni Bairdomar on 71-41-1709SOA (RBC) [Entitic vol]89.6 fL80.0-94.0Doctors HospitalMonocytes Auto (Bld) [#/Vol]Ordered By: Objerry Oliomar on 96-71-7048Bipivfpiy (Bld) [#/Vol]0.6 10 3/uL0.3-0.8Doctors HospitalMonocytes/100 WBC Auto (Bld)Ordered By: [facility] Oliomar on 43-10-8526Zesxtrenz/100 WBC (Bld)9.0 %1.7-12.0Doctors HospitalNeutrophils Auto (Bld) [#/Vol]Ordered By: [facility] Oliomar on 47-26-4143Pfppauggewf (Bld) [#/Vol]4.4 10 3/uL1.4-6.5FUniversity Hospitals Parma Medical CenterNeutrophils/100 WBC Auto (Bld)Ordered By: [facility] Olioma on 79-19-8352Tnofbqplemq/100 WBC (Bld)66.9 %43.0-75.0Doctors HospitalNo Panel InformationOrdered By: [facility] Olibarwick on 71-14-8933Ufpsfigtore # (Auto)0.1 10 3/uL0.0-0.7FUniversity Hospitals Parma Medical CenterFolate15.30 ng/mL 8.60-58.90Doctors HospitalImmature Granulocyte # (Auto)0.04 10 3/uLHigh0.00-0.03Doctors HospitalPlatelet mean volume Auto (Bld) [Entitic vol]Ordered By: [facility] Oliomar on 44-87-0188Uvzpmout mean volume (Bld) [Entitic vol]10.8 fL9.5-13.5FUniversity Hospitals Parma Medical CenterPlatelets Auto (Bld) [#/Vol]Ordered By: Obgabrieldacalixto Daromar on 11-83-8887Idukhlogh (Bld) [#/Vol]261 10 3/gH459-310WqpgugguyDoctors HospitalRBC Auto (Bld) [#/Vol] Ordered By: Obaydah Daromar on 21-07-1129JHW (Bld) [#/Vol]4.34 10 6/uLLow 4.70-6.10[facility] Medical Centererum or plasma albumin/globulin mass ratioOrdered By: Obaydah Daromar on 88-86-1308Nqmlwnm/Globulin [Mass ratio]1.0 {ratio}[facility] Centererum or plasma anion gap determination Ordered By: Obaydah Daromar on 42-68-2203Gweot gap [Moles/Vol]10.8 mmol/L Doctors HospitalBasophils Auto (Bld) [#/Vol]on 04-20-2025 Basophils (Bld) [#/Vol]0.0 10 3/uL0.0-0.1FUniversity Hospitals Parma Medical Center Basophils/100 WBC Auto (Bld)on 37-18-3799Mbdkanldi/100 WBC (Bld)0.5 %0.2-2.0 Doctors HospitalEosinophils/100 WBC Auto (Bld)on 04-20-2025 Eosinophils/100 WBC (Bld)2.3 %0.9-7.0[facility] Erythrocyte distribution width Auto (RBC) [Ratio]on 28-67-0567Ysayjpnpziv distribution width (RBC) [Ratio]13.8 %11.0-15.0[facility] Estimated glomerular filtration rate (GFR) non- Americanon 04-20-2025 GFR/1.73 sq M.predicted among non-blacks MDRD (S/P/Bld) [Vol rate/Area] mL/min/{1.73_m2}>=60 mL/min/1.73m 2FUniversity Hospitals Parma Medical CenterGlobulin Calc (S) [Mass/Vol]on 83-99-7882Ocmoueox (S) [Mass/Vol]3.3 g/dLDoctors HospitalHematocrit Auto (Bld) [Volume fraction]on 04-20-2025 Hematocrit (Bld) [Volume fraction]40.2 %Low42.0-54.0Doctors HospitalHemoglobin [Mass/volume] in Bloodon 82-72-0699Ybzlmylpqv (Bld) [Mass/Vol] 13.3 g/dLLow14.0-18.0Doctors HospitalLaboratory - Chemistry and Chemistry - challengeon 02-93-7681Bmsjecwmt Ql (U)MODERATEAbnormalNEGATIVE Doctors HospitalGlucose (U) [Mass/Vol]NegativeNEGATIVEDoctors HospitalKetones Ql (U)NegativeNEGATIVEDoctors HospitalpH (U)6.5 [pH]5.0-9.0[facility] Centerpecific gravity (U) [Rel density]1.0201.005-1.025Doctors HospitalUrobilinogen Qn (U)0.2 {Kathia'U}/dL0.2-1.0Doctors HospitalAlbumin [Mass/Vol]3.3 g/dLLow3.4-5.0Doctors HospitalALP [Catalytic activity/Vol]162 U/ZXdlt41-951UwtvsoxzkDoctors HospitalALT [Catalytic activity/Vol]20 U/H18-06MaqcckcypDoctors HospitalAST [Catalytic activity/Vol]15 U/H62-31LwuiumsetDoctors HospitalBilirubin [Mass/Vol]0.5 mg/dL0.2-1.0Doctors HospitalBilirubin.direct [Mass/Vol]0.1 mg/dL0.0-0.2FUniversity Hospitals Parma Medical CenterCalcium [Mass/Vol]9.6 mg/dL8.5-10.1 Doctors HospitalChloride [Moles/Vol]105 mmol/T92-074CxqziiitqDoctors HospitalCO2 [Moles/Vol]29.0 mmol/L21.0-32.0Doctors HospitalCreatinine [Mass/Vol]0.70 mg/dL0.70-1.30Doctors HospitalGFR/1.73 sq M.predicted MDRD (S/P/Bld) [Vol rate/Area]mL/min/{1.73_m2} >=60 mL/min/1.73m 2FUniversity Hospitals Parma Medical CenterGlucose [Mass/Vol]112 mg/dL Roxv70-366TfyxiqcsgDoctors HospitalPotassium [Moles/Vol]3.1 mmol/LLow 3.5-5.1FUniversity Hospitals Parma Medical CenterProtein [Mass/Vol]6.6 g/dL6.4-8.2 [facility] Centerodium [Moles/Vol]144 mmol/S932-679DivtydpvhDoctors HospitalUrea nitrogen [Mass/Vol]17.0 mg/dL7.0-18.0Doctors HospitalUrea nitrogen/Creatinine [Mass ratio]24.3 mg/mgDoctors HospitalLaboratory - Hematology and Cell countson 04-20-2025 Immature granulocytes/100 WBC (Bld)1.0 %High0.0-0.5FUniversity Hospitals Parma Medical CenterLaboratory - Specimen informationon 92-60-9904Jprogccnaj (U)CLEARCLEAR Doctors HospitalColor (U)YELLOWYELLOWDoctors HospitalLaboratory - Urinalysison 37-68-2745Iutjwjfvp esterase Test strip Ql (U) NegativeNEGATIVEDoctors HospitalMucus Ql (Urine sed)SMALL AbnormalNONE SEENDoctors HospitalNitrite Ql (U)NegativeNEGATIVE Doctors HospitalProtein Ql (U)NegativeNEG/TRACEDoctors HospitalLeukocytes [#/volume] corrected for nucleated erythrocytes in Blood by Automated counon 51-34-3685HXK corrected for nucl RBC Auto (Bld) [#/Vol]6.2 10 3/uL4.0-11.0[facility] Lymphocytes Auto (Bld) [#/Vol]on 96-11-0066Zgjbesphqaj (Bld) [#/Vol]1.2 10 3/uL 1.2-3.8Doctors HospitalLymphocytes/100 WBC Auto (Bld)on 80-72-2491Ptahzixmxnz/100 WBC (Bld)20.0 %Low20.5-60.0Doctors HospitalMCH Auto (RBC) [Entitic mass]on 87-23-5769ZAL (RBC) [Entitic mass]29.8 pg 25.9-34.0Doctors HospitalMCHC Auto (RBC) [Mass/Vol]on 59-05-0709PTIS (RBC) [Mass/Vol]33.1 g/dL29.9-35.2FUniversity Hospitals Parma Medical CenterMCV Auto (RBC) [Entitic vol]on 10-99-2074IGU (RBC) [Entitic vol]90.1 fL 80.0-94.0Doctors HospitalMonocytes Auto (Bld) [#/Vol]on 58-29-4602Irsywxuej (Bld) [#/Vol]0.6 10 3/uL0.3-0.8Doctors HospitalMonocytes/100 WBC Auto (Bld)on 79-37-4452Vsxusfdud/100 WBC (Bld)9.7 % 1.7-12.0Doctors HospitalNeutrophils Auto (Bld) [#/Vol]on 79-42-8947Nlqguomndif (Bld) [#/Vol]4.1 10 3/uL1.4-6.5FUniversity Hospitals Parma Medical CenterNeutrophils/100 WBC Auto (Bld)on 89-93-4568Opmmmastbvh/100 WBC (Bld)66.5 % 43.0-75.0Doctors HospitalNo Panel Informationon 59-91-1888Bwiic BacteriaTRACE #/HPFAbnormalNONE [facility] HospitalUrine Occult BloodNegativeNEGATIVEDoctors HospitalUrine Other Casts NONE SEEN #/LPFNONE [facility] HospitalUrine Other Crystals None Seen #/HPFNone [facility] Medical CenterUrine RBCNONE SEEN #/HPF0-2FUniversity Hospitals Parma Medical CenterUrine Squamous Epithelial CellsRARE #/LPFNONE/RAREDoctors HospitalUrine WBC0-2 #/HPFAbnormalNONE [facility] HospitalEosinophils # (Auto)0.1 10 3/uL0.0-0.7 Doctors HospitalImmature Granulocyte # (Auto)0.06 10 3/uLHigh 0.00-0.03Doctors HospitalPlatelet mean volume Auto (Bld) [Entitic vol]on 97-61-7808Bftjvtvb mean volume (Bld) [Entitic vol]10.6 fL 9.5-13.5FUniversity Hospitals Parma Medical CenterPlatelets Auto (Bld) [#/Vol]on 17-77-1731Bmdsxuqhu (Bld) [#/Vol]259 10 3/kP038-254HimmerixgDoctors HospitalRBC Auto (Bld) [#/Vol]on 28-86-4744TTL (Bld) [#/Vol]4.46 10 6/uLLow 4.70-6.10[facility] Centererum or plasma albumin/globulin mass ratioon 32-55-4129Lfeefew/Globulin [Mass ratio]1.0 {ratio}[facility] Centererum or plasma anion gap determinationon 13-50-3872Qngcf gap [Moles/Vol]13.1 mmol/LFUniversity Hospitals Parma Medical CenterConsultation/Specialist Noteon 27-67-8017Wwyxnxxjubqg/Specialist Note [id number]#1.00OTUC [facility] Bldon 03-11-2025 Bld Final No growth at 5 days.[facility] Hospital for RehabilitationComment on above: Performed By: #### CD:[id number] #### [address] Bldpt care in room. will check back later 03/06/2025 11:59:19 EDTck Final No growth at 5 days.[facility] Hospital for RehabilitationComment on above: Performed By: #### CD:[id number] #### [address] [address] Urineon 03-08-2025 UrineOrder added by Discern rule. Final >100,000 cfu/ml Proteus mirabilis isolated ORGANISM Promir SUSCEPTIBILITY ORGANISM ID: 1 ANTIBIOTIC INTERPRETATION SHALA STATUS POS Proteus mirabilis Ampicillin/Sulbactam S 8 V Ampicillin R >=32 V Cefazolin R 16 V Cefepime S <=0.12 V Ceftazidime S <=0.5 V Ceftriaxone S <=0.25 V Ciprofloxacin R >=4 V Ertapenem S <=0.12 V Gentamicin S <=1 V Meropenem S 1 V Nitrofurantoin R 128 V Piperacillin/Tazobactam S <=4 V Trimethoprim/Sulfa R CD:[id number] VNMemorial Health SystemComment on above:Performed By: #### CBC #### [address] [address]Bwbcarzwf Clinical Summaryon 70-28-2179Iwwddnyta Clinical Summary[address] [address] [phone] [address] [phone] Clinical Summary Person Information Name: Edvin Roland Age: 79 Years : 1945 Sex: Male PCP: Dorothy Hall DO Marital Status: Phone: PCP: Race: White Ethnicity: Not or Language: Afghan Visit Id: Visit Reason: Speciality: Acuity: Enc Type: Inpatient Med Service: Medicine-General Arrival: 02/24/2025 12:00:25 Discharge: Dispo Type: Address: [address] [place] [id number] Preferred Communication Mode: Verbal Preferred Language: Afghan Discharge Diagnosis: Ankle swelling; Bladder incontinence; Chronic constipation; Chronic gout; Chronic lower back pain; Foot drop, bilateral; Hypertension; Lumbar stenosis with neurogenic claudication; OAB (overactive bladder); SOB (shortness of breath) on exertion Discharged To: long-term facility Mode of Discharge 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: Home Treatments: Devices/Equipment: Professional Skilled Services: Special Services and Community Resources: Discharge Orders: Follow up with Primary Care Provider (PCP) 03/08/25 9:40:00 EDT, 1 to 2 weeks Fdc Facility Certification 03/08/25 9:40:00 EDT, Skilled, I certify care home facility stay is anticipated to be LESS than 30 days. Provider to Resume Care: Titi MD to follow., 03/08/25 9:40:00 EDT, 03/08/25 9:40:00 EDT Tube Feeding and Supplements Dietary Supplements 03/05/25 12:31:00 EDT, Ensure Plus High Protein-Vanilla, BID, AUTO SEND vanillaensure milkshakes with lunch daily. Dietary Supplements 03/02/25 14:08:00 EDT, Magic Cup - Butter Pecan, BID Home Health Consult and Ambulatory Referrals Treatment and Wound Care Clinical [place] Withdrawl Assessment 03/02/25 2:26:00 EDT, q6hr, Q6h [...] range between ( 27.2 and 40.8 ) [place] Auto: 17.2 % -- Normal range between [...] and 5 ) Mon (more content not included)...NormalWhite HospitalLyme Sero-Houstonon 47-75-0042Vxst Serology-HoustonNegativeNormalNegativeWhite HospitalComment on above:Result Comment: No evidence of antibodies to B. burgdorferi detected. False negative results may occur in recently infected patients (<=2 weeks) due to low or undetectable antibody levels to B. burgdorferi. If recent exposure is suspected, a second sample should be collected and tested in 2-4 weeks. Test Performed by: [facility] [address] [place] [address] Gunite Nozzle Operator: Aaron De Leon Ph.D.; CLIA# [id number] By: #### TSH #### [facility] [address] [place] [address]Hgoborayzh Progress Noteon 28-06-7939Jubadhphsm Progress Note Subjective patient doing better today, alert to person and time, able to tell me he is Neva and states he does remember having back [...] Daily heparin, 5000 units= 1 mL, Subcutaneous, z0kh-Acwpzrfj Times hydroCHLOROthiazide, 25 mg, Oral, Daily Klor-Con [...] HS (at bedtime) Tylenol, 650 mg, Oral, e8gy-Jlznynmz Times, PRN Zofran, 4 mg= 2 mL, [...] signed by Christian Rae PA-C 03/08/25 07:58 [facility] Progress Note-Nurseon 08-53-0822Ootubtsh Note-NurseReport called to Donna prather [facility]. Electronically signed by Susanne Sainz 03/08/25 11:53 [facility] Progress Note-NurseAttempt to call report to [facility], per staff they wouldn't take report until they reviewed faxed information. Number left with nurse. at bedside here at [facility] and aware of discharge. Electronically signed by Susanne Sainz 03/08/25 11:38 [facility].eGFR on 91-90-8873QFC/1.73 sq M.predicted MDRD (S/P/Bld) [Vol rate/Area] mL/min/{1.73_m2}Normal>=60White HospitalComment on above:Result Comment: [facility] have implemented the eGFR calculation approach that does not havea coefficient for race and that conforms to [...] maximum of SCr/? or 1 Age = yearsPerformed By: #### CBC #### [place] [id number] Bldon 03-07-2025 Bld Final No growth at 5 days.NormalWhite HospitalComment on above: Performed By: #### BLDC ####[place] [id number] By: #### CBC #### [address] [address]ETI w/ Diffon 45-44-8056Frexlqyeeiy distribution width (RBC) [Ratio]13.8 %Pygjwz88.6-14.8BWooster Community HospitalComment on above: Performed By: #### TSH #### [address] [address]Kohaosejbj (Bld) [Volume fraction]33.4 %Low41.0-53.0White HospitalComment on above:Performed By: #### TSH #### [place] [id number] (Bld) [Mass/Vol]11.7 g/dLLow13.5-17.5BWooster Community HospitalComment on above:Performed By: #### TSH #### [place] [id number] (RBC) [Entitic mass]32.0 ucFroivf40.0-35.0White HospitalComment on above:Performed By: #### TSH #### [address] [address]KLNM75.2 %Ermmvt96.0-37.0White HospitalComment on above:Performed By: #### TSH #### [address] [address]LTK (RBC) [Entitic vol]90.9 iOFijtbp95.0-100.0White HospitalComment on above:Performed By: #### TSH #### [address] [address]Nbnnuzlj867 x10*3/bjQRocyxq544-368RugsfyneeWhite HospitalComment on above:Performed By: #### TSH #### [address] [address]Huumvnai mean volume (Bld) [Entitic vol]7.8 fLNormal6.7-10.6 White HospitalComment on above:Performed By: #### TSH #### [address] [address]EEW0.67 x10*6/mcLLow4.30-5.80[facility] Comment on above:Performed By: #### TSH #### [address] [address]PKQ8.0 x10*3/mcLNormal4.5-11.0[facility] Comment on above:Performed By: #### TSH #### [address] [address]ITDmo 25-14-0958Jppmtmr [Mass/Vol]3.0 g/dLLow3.2-4.9BWooster Community HospitalComment on above:Performed By: #### COMP ####[address] [address]Fixksvy/Globulin [Mass ratio]0.9 {ratio}Low1.1-2.2BWooster Community HospitalComment on above: Performed By: #### COMP ####[address], [place] [address]Qas Phos97 IU/XIven66-24IxlyncwviWhite Hospital Comment on above:Performed By: #### COMP ####[place] [address] [facility], [place] [address]CNM [Catalytic activity/Vol]34 U/KHkdldr57-97 White HospitalComment on above:Performed By: #### COMP ####[address], [place] [address]Udwyu gap [Moles/Vol]9 mmol/LNormal4-12White HospitalComment on above: Performed By: #### COMP ####[address] [address]RWW [Catalytic activity/Vol]30 U/NJzzwyl19-20AmntbjumaWhite HospitalComment on above:Performed By: #### COMP ####[address], [place] [address]Qmdi Total0.8 mg/dLNormal 0.3-1.2BWooster Community HospitalComment on above:Performed By: #### COMP ####[address] [address]JGX Crea Ratio32.4 zezesNkoa84.0-20.0White HospitalComment on above: Performed By: #### COMP ####[address], [place] [address]Dvyaehk [Mass/Vol]8.7 mg/dLNormal8.6-10.3BWooster Community HospitalComment on above:Performed By: #### COMP ####[address], [place] [address]Chmsgols [Moles/Vol]94 mmol/LLow 98-110White HospitalComment on above:Performed By: #### COMP ####[address] [place] [address]AR1 [Moles/Vol]27 mmol/XKjjohp18-82MfjmvkrgwWhite HospitalComment on above: Performed By: #### COMP ####[address] [address]Umhjylfwnm [Mass/Vol]0.71 mg/dLNormal0.61-1.24White HospitalComment on above:Performed By: #### COMP ####[address] [address]Ojstrio [Mass/Vol]121 mg/fPHoha63-02GdttckehzWhite HospitalComment on above:Performed By: #### COMP ####[address] [address] Potassium [Moles/Vol]3.0 mmol/LLow3.4-4.8BWooster Community HospitalComment on above:Performed By: #### COMP ####[address] [address]Lxmqajy [Mass/Vol]6.2 g/dLLow6.5-8.1BWooster Community HospitalComment on above:Performed By: #### COMP ####[address] [address]Qjubdz [Moles/Vol]130 mmol/LLow 133-142White HospitalComment on above:Performed By: #### COMP ####[address] [address]Prog nitrogen [Mass/Vol]23 mg/dLNormal8-26White HospitalComment on above:Performed By: #### COMP ####[address] [address]Tsbe Autoon 38-74-8234Tzxa Absolute0.0 x10*3/mcLNormal 0.0-0.2BWooster Community HospitalComment on above:Performed By: #### CBC #### [address] [address]Awwmnwlqg/100 WBC (Bld)0.5 %Normal0.0-1.2BWooster Community HospitalComment on above:Performed By: #### CBC #### [address] [address]Dgj Absolute0.3 x10*3/mcLNormal0.0-0.4BWooster Community HospitalComment on above:Performed By: #### CBC #### [address] [address]Mpcitfojtyx/100 WBC (Bld)3.1 %Normal0.0-6.1BChillicothe VA Medical Center SystemComment on above:Performed By: #### CBC #### [address] [address]Kngwh Absolute1.0 x10*3/mcLNormal1.0-4.8BWooster Community HospitalComment on above:Performed By: #### CBC #### [address] [address]Wmbeafnpqfw/100 WBC (Bld)10.9 %Low27.2-40.8BWooster Community HospitalComment on above:Performed By: #### CBC #### [address] [address]Eidn Absolute1.6 x10*3/mcLHigh0.3-1.1BWooster Community HospitalComment on above:Performed By: #### CBC #### [address] [address]Rnuyxyxxx/100 WBC (Bld)17.2 %High4.7-13.9BWooster Community HospitalComment on above:Performed By: #### CBC #### [address] [address]Zzyqmv Absolute6.2 x10*3/mcLNormal1.8-7.7BWooster Community HospitalComment on above:Performed By: #### CBC #### [address] [address]Wqibzw Auto68.3 %Eiiael48.2-70.8BWooster Community Hospital Comment on above:Performed By: #### CBC #### [address] [address]Kvoq Nadia 14-14-8135Sccm form neutrophils/100 WBC (Bld)2 % Normal0-5BChillicothe VA Medical Center SystemComment on above:Performed By: #### .Manual Diff ####[address] [address]Vwydjiwcz/100 WBC (Bld)0 %Normal0-3BChillicothe VA Medical Center SystemComment on above:Performed By: #### .Manual Diff ####[address] [address]Bywjcmdszma/100 WBC (Bld)3 %Normal0-7BChillicothe VA Medical Center SystemComment on above:Performed By: #### .Manual Diff ####[address] [address] Lymphocytes/100 WBC (Bld)13 %Wqg73-12CkgzchtpeDunlap Memorial Hospital SystemComment on above:Performed By: #### .Manual Diff ####[address] [address]Fiaxugctl/100 WBC (Bld)4 %Normal1-11BChillicothe VA Medical Center SystemComment on above:Performed By: #### .Manual Diff ####[address] [address]Pgcjt Man1 %High0-0 [facility] SystemComment on above:Performed By: #### .Manual Diff ####[address] [address]Ctuvonvw estimateAdequateNormPremier Health Upper Valley Medical Center SystemComment on above:Performed By: #### .Manual Diff ####[address] [address]QUT morphology finding Nom (Bld)NormalNoKettering Health Preble SystemComment on above:Performed By: #### .Manual Diff ####[address] [address]Pqkex Lymph Man4 %Normal0-5BChillicothe VA Medical Center SystemComment on above:Performed By: #### .Manual Diff ####[facility] [place], [place] [address]Slmv Man73 %Cwlqqa85-65IyekyaylwDunlap Memorial Hospital SystemComment on above: Performed By: #### .Manual Diff ####[facility] [place], [place] [address]Purwrndzxt Progress Noteon 65-55-1391Remsyvxqfp Progress NoteSubjective Patient sitting up in bed. Very lethargic, [...] Daily heparin, 5000 units= 1 mL, Subcutaneous, h1ye-Zxhasndf Times hydroCHLOROthiazide, 25 mg, Oral, Daily Klor-Con [...] HS (at bedtime) Tylenol, 650 mg, Oral, w7gf-Pozfjbob Times, PRN Zofran, 4 mg= 2 mL, IV Push, q4hr, PRN Assessment/Plan POD#11 s/p L2-5 decompression and fusion with durotomy Plan: 1. Tylenol prn pain 2. Activity - as tolerated. PT/OT, back brace when ambulating. If patient develops a headache, havehim lay flat 3. AM labs pending - 4. Hospitalist consult and Neuro consult, appreciate input from both specialities 5. Discharge pending - SNF once medically stable Electronically signed by Kirk Weber PA-C 03/07/25 10:17 [facility] Progress Note-Nurseon 64-75-0261Swazaowe Note-NurseNurse notified provider that patient is lethargic this morning, did attempt to give PO water, patient not able to tolerate, notified that Rn did not feel comfortable to administer PO medications, requested provider to review meds and adjust to IV as appropriate. Electronically signed by Susanne Sainz 03/07/25 10:[address] John Medical CenterPEP on [id number]/Globulin [Mass ratio]1.4 {ratio}Normal1.1-2.2BWooster Community HospitalComment on above:Performed By: #### CBC #### [address] [address]Axhqxoo Electrophoresis InterpretationNormAdena Pike Medical CenterComment on above:Result Comment: Peripheral blood smear findings: Hypogammaglobulinemia. There is no abnormal protein identified in the serum. Authenticated by: Zaina Ramesh M.D. Date/Time: 03/07/2025 11:17:21 EDTPerformed By: #### CBC #### [address] [address].UA Microscp Aon 05-21-7169JP BacteriaPresentAbnormalAbsent White HospitalComment on above:Performed By: #### [id number] #### [address] [id number] [place] Phosphate CrystPresentAbnormalUniversity Hospitals Portage Medical CenterComment on above:Performed By: #### [id number] #### [address] [address]FX MucusPresentNormalAbsentWhite Hospital Comment on above:Performed By: #### [id number] #### [address] [address]BH RBC Quant4 /HPFNormal0-5BWooster Community Hospital Comment on above:Performed By: #### [id number] #### [address] [address]BI Squepi Cells Quant<3Qyehcp4-33HpzkuowfkWhite Hospital Comment on above:Performed By: #### [id number] #### [address] [address]KB WBC Quant51 /HPFHigh0-5BWooster Community HospitalComment on above:Performed By: #### CD:[id number] #### [address] [address].eGFRon 52-67-8328XTA/1.73 sq M.predicted MDRD (S/P/Bld) [Vol rate/Area]mL/min/{1.73_m2}Normal>=60White HospitalComment on above:Result Comment: [facility] have implemented the eGFR calculation approach that does not havea coefficient for race and that conforms to the NKF- ASN Task Force Recommendations. Stages of Chronic Kidney [...] maximum of SCr/? or 1 Age = yearsPerformed By: #### CBC #### [address] [address]IESdk 50-78-7120Mjsxnvs [Mass/Vol]3.2 g/dLNormal3.2-4.9 White HospitalComment on above:Performed By: #### TSH #### [address] [address]Imwhixy/Globulin [Mass ratio]1.0 {ratio}Low1.1-2.2BWooster Community HospitalComment on above:Performed By: #### TSH #### [address] [address]Tyu Phos89 IU/STbbutq73-22HpgmwqrgqWhite HospitalComment on above:Performed By: #### TSH #### [address] [address]ATD [Catalytic activity/Vol]28 U/TEeizby37-65XnpyfecbzWhite HospitalComment on above:Performed By: #### TSH #### [address] [address]Zfnpu gap [Moles/Vol]8 mmol/LNormal4-12White HospitalComment on above:Performed By: #### TSH #### [address] [address]GEC [Catalytic activity/Vol]27 U/BUbrxnz83-33ZdapthonyWhite HospitalComment on above:Performed By: #### TSH #### [address] [address]Isip Total0.7 mg/dLNormal0.3-1.2BWooster [facility] Hospital Comment on above:Performed By: #### TSH #### [address] [address]UCM Crea Ratio34.1 jrzoyVrox18.0-20.0White HospitalComment on above:Performed By: #### TSH #### [address] [address]Qvakedn [Mass/Vol]8.9 mg/dLNormal8.6-10.3BWooster Community HospitalComment on above:Performed By: #### TSH #### [address] [address]Buiwggob [Moles/Vol]97 mmol/UXoq24-773WpkzafmavWhite HospitalComment on above:Performed By: #### TSH #### [address] [address]BH1 [Moles/Vol]25 mmol/XPrkibx14-18NadyqvlqiWhite HospitalComment on above:Performed By: #### TSH #### [address] [place] [address]Kqfjoxkypd [Mass/Vol]0.91 mg/dLNormal0.61-1.24White HospitalComment on above:Performed By: #### TSH #### [address] [place] [address]Pchyypt [Mass/Vol]144 mg/kEElaq87-38XioisspdaWhite HospitalComment on above:Performed By: #### TSH #### [address] [address]Pconngjbt [Moles/Vol]3.2 mmol/LLow3.4-4.8BWooster Community HospitalComment on above:Performed By: #### TSH #### [address] [address]Tzsolvw [Mass/Vol]6.3 g/dLLow6.5-8.1BWooster Community HospitalComment on above:Performed By: #### TSH #### [address] [address]Cujsrg [Moles/Vol]130 mmol/EWit039-853DjbpasxvaWhite HospitalComment on above:Performed By: #### TSH #### [address] [address]Fcps nitrogen [Mass/Vol]31 mg/dLHigh8-26White HospitalComment on above:Performed By: #### TSH #### [address] [address]Aurbottmfh Progress Noteon 22-95-6734Krtlrarwpe Progress Note Subjective attempted to see patient [...] Daily heparin, 5000 units= 1 mL, Subcutaneous, o8oa-Seqsdsqc Times hydroCHLOROthiazide, 25 mg, Oral, Daily Klor-Con M20, 20 mEq, Oral, Daily Lipitor, 40 mg, Oral, HS (at bedtime) losartan, 25 mg, Oral, Daily MiraLax, 17 g= 1 EA, Oral, Daily Multiple Vitamins oral tablet, 1 tabs, Oral, Daily Myrbetriq, 50 mg, Oral, Daily SEROquel, 25 mg, Oral, HS (at bedtime) thiamine, 100 mg= 1 mL, IV Push, Daily Tylenol, 650 mg, Oral, p4qr-Bltmdbgd Times, PRN Zofran, 4 mg= 2 mL, IV Push, q4hr, PRN Assessment/Plan POD#10 s/p L2-5 decompression and fusion with durotomy Plan: 1. Tylenol prn pain 2. Activity - as tolerated. PT/OT, back brace when ambulating. If patient develops a headache, havehim lay flat 3. AM labs pending - 4. Hospitalist consult for worsening confusion, work up negative. Neuro has been consulted, appreciate input from both specialities 5. Discharge pending - SNF once medically stable Electronically signed by Christian Rae PA-C 03/06/25 08:49 EDTNormalWhite Hospital SPEPon 42-63-4583Ymqkovm Lvl3.22 g/mLNormal3.00-5.00White HospitalComment on above:Performed By: #### CBC #### [facility] [address] [place] [address]Obqaa 1 Glob0.21 g/dLNormal0.13-0.33White HospitalComment on above:Performed By: #### CBC #### [address] [address]Qrzej 2 Glob0.83 g/dLNormal0.56-1.13White HospitalComment on above:Performed By: #### CBC #### [address] [address]Kzgu Glob0.74 g/dLNormal0.60-1.25[facility] Comment on above:Performed By: #### CBC #### [address] [address]Rtnpb Globulin0.51 g/dLLow0.53-1.48White HospitalComment on above:Performed By: #### CBC #### [place] [id number] w Culture if Indon 72-64-8598Egcvy (U)YellowNormalYellow White HospitalComment on above:Order Comment: If patient catheterized >2 days, discontinue current catheter, and insert new catheter prior to collectionPerformed By: #### UCI ####[address] [address]Bphvtmz Ql (U)NegativeNormalNegativeWhite HospitalComment on above:Order Comment: If patient catheterized >2 days, discontinue current catheter, and insert new catheter prior to collection Performed By: #### UCI ####[place] [address]UA BloodNegativeNormalNegativeWhite HospitalComment on above:Order Comment: If patient catheterized >2 days, discontinue current catheter, and insert new catheter prior to collection Performed By: #### UCI ####[address] [address]ZG ClarityTurbidNormalClearWhite Hospital Comment on above:Order Comment: If patient catheterized >2 days, discontinue current catheter, and insert new catheter prior to collectionPerformed By: #### UCI ####[address] [address]BY GlucoseNormalNormalNegativeWhite HospitalComment on above:Order Comment: If patient catheterized >2 days, discontinue current catheter, and insert new catheter prior to collectionPerformed By: #### UCI ####[address] [address]FG Leukocyte Yowpezft810 AbnormalNegPremier Health Miami Valley HospitalComment on above:Order Comment: If patient catheterized >2 days, discontinue current catheter, and insert new cath eter prior to collectionPerformed By: #### UCI ####[address] [address]JJ Nitrite2+AbnormalNegPremier Health Miami Valley HospitalComment on above:Order Comment: If patient catheterized >2 days, discontinue current catheter, and insert new catheter prior to collection Performed By: #### UCI ####[place] [address]UA pH8.2Jjdwddrr9.5 - 7.8BlanMarietta Memorial Hospital Comment on above:Order Comment: If patient catheterized >2 days, discontinue current catheter, and insert new catheter prior to collectionPerformed By: #### UCI ####[address] [address]SZ Mlgzbwl200 mg/dLAbnormalNegPremier Health Miami Valley HospitalComment on above: Order Comment: If patient catheterized >2 days, discontinue current catheter, and insert new catheter prior to collectionPerformed By: #### UCI ####[address] [address]ME SourceCatheterNormal White HospitalComment on above:Order Comment: If patient catheterized >2 days, discontinue current catheter, and insert new catheter prior to collectionPerformed By: #### UCI ####[address] [address]LB Spec Grav1.116Effpgl0.003-1.035White HospitalComment on above:Order Comment: If patient catheterized >2 days, discontinue current catheter, and insert new catheter prior to collection Performed By: #### UCI ####[address] [address]MC UrobilinogenNormalNormal0.2 - 1.0White HospitalComment on above:Order Comment: If patient catheterized >2 days, discontinue current catheter, and insert new catheter prior to collection Performed By: #### UCI ####[address] [address]Moogxnbmejhu (U) [Mass/Vol]NegativeNormalNegative White HospitalComment on above:Order Comment: If patient catheterized >2 days, discontinue current catheter, and insert new catheter prior to collectionPerformed By: #### UCI ####[address] [address]IM Extremity Venous Duplex Lower Bilon 77-67-3692VI Extremity Venous Duplex Lower MohinderPreliminary Technologist Report A bilateral lower extremity venous [...] Donna JENNINGS on 6th floor at 08:00. Clean Out Driller Helper: Jaylene Henriquez RVT Radiologist Report Procedure: Bilateral [...] is Signed, Electronically Signed in Other Vendor System)Normal [facility].eGFRon 24-33-3704RYB/1.73 sq M.predicted MDRD (S/P/Bld) [Vol rate/Area]mL/min/{1.73_m2}Normal>=60White HospitalComment on above:Result Comment: [facility] Laboratories have implemented the eGFR calculation approach that does not havea coefficient for race and that conforms to [...] maximum of SCr/? or 1 Age = yearsPerformed By: #### CBC #### [address] [address]Aijpdjiew 31-54-1481Kokkomf (P) [Moles/Vol]24 umol/LNormal9-35 White HospitalComment on above:Performed By: #### TSH #### [address] [address]Etgtg Metabolic Profileon 77-46-6891Qsjyb gap [Moles/Vol]9 mmol/LNormal4-12White HospitalComment on above:Performed By: #### .Manual Diff #### [address] [address]Cvxrzsy [Mass/Vol]9.0 mg/dLNormal8.5-10.3BWooster Community HospitalComment on above:Performed By: #### .Manual Diff #### [address] [address]Gqotgddn [Moles/Vol]97 mmol/VEsz54-022KvxlwuiesWhite HospitalComment on above:Performed By: #### .Manual Diff #### [address] [address]TX6 [Moles/Vol]27 mmol/LUrfeit03-06PmfxtuovaWhite HospitalComment on above:Performed By: #### .Manual Diff #### [address] [address]Nnwkucwgfm [Mass/Vol]0.77 mg/dLNormal0.61-1.24White HospitalComment on above:Performed By: #### .Manual Diff #### [address] [address]Bdvytlr [Mass/Vol]138 mg/zDGvpx34-03XzgdxphswWhite HospitalComment on above:Performed By: #### .Manual Diff #### [address] [address]Tkedlmfzc [Moles/Vol]3.6 mmol/LNormal3.4-4.8BWooster Community HospitalComment on above:Performed By: #### .Manual Diff #### [place] [address]Sodium [Moles/Vol]133 mmol/LKlusth266-751VrpqacqdlWhite HospitalComment on above:Performed By: #### .Manual Diff #### [address] [address]Biqf nitrogen [Mass/Vol]26 mg/dLNormal8-26White HospitalComment on above:Performed By: #### .Manual Diff #### [address] [address]Cyar nitrogen/Creatinine [Mass ratio]33.8 mg/jlInpg22.0-20.0 White HospitalComment on above:Performed By: #### .Manual Diff #### [address] [address]JXH w/ Diffon 94-80-1108Katswdmkupb distribution width (RBC) [Ratio]13.6 %Ytywtr02.6-14.8BWooster Community HospitalComment on above: Performed By: #### CBC ####[address] [address]Nkerogorte (Bld) [Volume fraction]33.4 %Low41.0-53.0 White HospitalComment on above:Performed By: #### CBC ####[address] [address]Oiyodyhhml (Bld) [Mass/Vol]11.0 g/dLLow13.5-17.5BWooster Community HospitalComment on above:Performed By: #### CBC ####[address] [address]YAY (RBC) [Entitic mass]30.6 evBibpug31.0-35.0White HospitalComment on above:Performed By: #### CBC ####[address] [address]KXPC41.8 %Mqbwqy84.0-37.0 White HospitalComment on above:Performed By: #### CBC ####[place] [address]40MCV (RBC) [Entitic vol]93.1 oMBljiaa29.0-100.0White HospitalComment on above:Performed By: #### CBC ####[place] [address]Platelet293 x10*3/myRXcuqhp696-279ZdcykwqgkWhite HospitalComment on above:Performed By: #### CBC ####[place] [address]Platelet mean volume (Bld) [Entitic vol]8.2 fL Normal6.7-10.6BWooster Community HospitalComment on above:Performed By: #### CBC ####[place] [address]40RBC3.59 x10*6/mcLLow4.30-5.80White HospitalComment on above:Performed By: #### CBC ####[place] [address]WBC17.2 x10*3/mcLHigh4.5-11.0White HospitalComment on above:Performed By: #### CBC ####[place] [address]40Diff Autoon 56-92-1727Fvfk Absolute0.0 x10*3/mcLNormal 0.0-0.2BWooster Community HospitalComment on above:Performed By: #### .Automated Diff ####[place] [address]Basophils/100 WBC (Bld)0.2 %Normal0.0-1.2BW[facility] Comment on above:Performed By: #### .Automated Diff ####[place] [address]Eos Absolute0.1 x10*3/mcLNormal 0.0-0.4BWooster Community HospitalComment on above:Performed By: #### .Automated Diff ####[address] [address]Qpsfluardcu/100 WBC (Bld)0.3 %Normal0.0-6.1BW[facility] Comment on above:Performed By: #### .Automated Diff ####[address] [address]Kdepa Absolute0.8 x10*3/mcLLow 1.0-4.8BWooster Community HospitalComment on above:Performed By: #### .Automated Diff ####[address] [address]Svctgdartrj/100 WBC (Bld)4.5 %Low27.2-40.8[facility] Comment on above:Performed By: #### .Automated Diff ####[address] [address]Lweg Absolute1.5 x10*3/mcLHigh 0.3-1.1BWooster Community HospitalComment on above:Performed By: #### .Automated Diff ####[address] [address]Xinwaxxmx/100 WBC (Bld)8.9 %Normal4.7-13.9BW[facility] Comment on above:Performed By: #### .Automated Diff ####[address] [address]Vhsldf Ucvinuuh13.8 x10*3/mcLHigh 1.8-7.7BWooster Community HospitalComment on above:Performed By: #### .Automated Diff ####[address] [address]Hujbvd Auto86.1 %High47.2-70.8BWooster Community HospitalComment on above:Performed By: #### .Automated Diff ####[address] [address]Dhcs [facility] 33-31-6696Nvcp form neutrophils/100 WBC (Bld)0 %Normal0-5BChillicothe VA Medical Center SystemComment on above:Performed By: #### .Manual Diff #### [address] [address]Cmclkecky/100 WBC (Bld)0 %Normal0-3BChillicothe VA Medical Center SystemComment on above:Performed By: #### .Manual Diff #### [address] [address]Avvxtqplexf/100 WBC (Bld)0 %Normal0-7BChillicothe VA Medical Center SystemComment on above:Performed By: #### .Manual Diff #### [address] [address]Xwqmmldajxt/100 WBC (Bld)13 %Cke81-45GkbsgrzbaDunlap Memorial Hospital SystemComment on above:Performed By: #### .Manual Diff #### [address] [address]Aayi Man1 %Normal0-1BChillicothe VA Medical Center SystemComment on above:Performed By: #### .Manual Diff #### [address] [address]Oshyjidcf/100 WBC (Bld)3 %Normal1-11BChillicothe VA Medical Center SystemComment on above:Performed By: #### .Manual Diff #### [address] [address]Rsgzznwc estimateAdequateNormPremier Health [facility] System Comment on above:Performed By: #### .Manual Diff #### [address] [address]NEN morphology finding Nom (Bld)NormalNormPremier Health Upper Valley Medical Center SystemComment on above:Performed By: #### .Manual Diff #### [address] [address]Nsob Man83 %Xxrg82-95NibfndtulDunlap Memorial Hospital SystemComment on above:Performed By: #### .Manual Diff #### [address] [address]QBL Brain w/o Contraston 48-75-2526TBL Brain w/o ContrastEXAM: MRI Brain w/o Contrast HISTORY: Headache, COMPARISON: [...] Is Signed, Electronically Signed in Other Vendor System)Normal White HospitalOrthopedic Progress Noteon 62-65-4672Ttbugnbozs Progress NoteSubjective patient falls back asleep throughout questioning this [...] Daily heparin, 5000 units= 1 mL, Subcutaneous, e3xn-Gmnthwth Times hydroCHLOROthiazide, 25 mg, Oral, Daily Klor-Con M20, 20 mEq, Oral, Daily Lipitor, 40 mg, Oral, HS (at bedtime) losartan, 25 mg, Oral, Daily MiraLax, 17 g= 1 EA, Oral, Daily Multiple Vitamins oral tablet, 1 tabs, Oral, Daily Myrbetriq, 50 mg, Oral, Daily SEROquel, 25 mg, Oral, HS (at bedtime) thiamine, 100 mg= 1 mL, IV Push, Daily Tylenol, 650 mg, Oral, c0hg-Pidchwnf Times, PRN Zofran, 4 mg= 2 mL, IV Push, q4hr, PRN Assessment/Plan POD#9 s/p L2-5 decompression and fusion with durotomy Plan: 1. Tylenol prn pain 2. Activity - as tolerated. PT/OT, back brace when ambulating. If patient develops a headache, havehim lay flat 3. AM labs pending - hgb stable, k+ WNL yesterday, WBC elevated yesterday 4. Hospitalist consult for worsening confusion, work up negative. Neuro has been consulted 5. Discharge pending - SNF once medically stable Electronically signed by Christian Rae PA-C 03/05/25 06:31 EDTNormalWhite Hospital SPEPon [id number] [Mass/Vol]5.5 g/dLLow6.5-8.1BWooster Community HospitalComment on above:Performed By: #### CBC #### [address] [address]EZ Chest 1 Viewon 80-37-7419YK Chest 1 ViewEXAM: XR Chest 1 View HISTORY: Shortness of breath (SOB), COMPARISON: 03/02/2025 [...] Is Signed, Electronically Signed in Other Vendor System)Normal [facility].eGFRon 48-07-4876XIK/1.73 sq M.predicted MDRD (S/P/Bld) [Vol rate/Area]mL/min/{1.73_m2}Normal>=60White HospitalComment on above:Result Comment: [facility] Laboratories have implemented the eGFR calculation approach that does not havea coefficient for race and that conforms to [...] maximum of SCr/? or 1 Age = yearsPerformed By: #### EGFR ####[address] [address]Nskou Metabolic Profileon 49-49-5273Olrww gap [Moles/Vol] 7 mmol/LNormal4-12White HospitalComment on above:Performed By: #### TSH #### [address] [address]Eczqsur [Mass/Vol]9.0 mg/dLNormal8.5-10.3BWooster Community HospitalComment on above:Performed By: #### TSH #### [address] [address]Qhyitceg [Moles/Vol]100 mmol/MIexgfu75-107MffphdcpxWhite HospitalComment on above:Performed By: #### TSH #### [address] [address]RH0 [Moles/Vol]25 mmol/KBviutl63-26KqldwhnssWhite HospitalComment on above:Performed By: #### TSH #### [address] [address]Osuqvwporg [Mass/Vol]0.90 mg/dLNormal0.61-1.24White HospitalComment on above:Performed By: #### TSH #### [address] [address]Kuijezy [Mass/Vol]124 mg/vHSdbm59-68JvewwzkrtWhite HospitalComment on above:Performed By: #### TSH #### [address] [address]Qieroyfou [Moles/Vol]4.2 mmol/LNormal3.4-4.8BWooster Community HospitalComment on above:Performed By: #### TSH #### [address] [address]Xujpcu [Moles/Vol]132 mmol/JYet433-986SfswmbelcWhite HospitalComment on above:Performed By: #### TSH #### [address] [address]Qjzt nitrogen [Mass/Vol]23 mg/dLNormal8-26White HospitalComment on above:Performed By: #### TSH #### [address] [address]Mspy nitrogen/Creatinine [Mass ratio]25.6 mg/urBfna53.0-20.0 White HospitalComment on above:Performed By: #### TSH #### [address] [address]PZW w/ Diffon 97-79-3464Oykanscpczx distribution width (RBC) [Ratio]13.1 %Cctvfr75.6-14.8BWooster Community HospitalComment on above: Performed By: #### CBC #### [address] [address]Ygrflqpwgf (Bld) [Volume fraction]34.8 %Low41.0-53.0White HospitalComment on above:Performed By: #### CBC #### [address] [address]Fexrbqmxga (Bld) [Mass/Vol]11.8 g/dLLow13.5-17.5BWooster Community HospitalComment on above:Performed By: #### CBC #### [address] [address]SNG (RBC) [Entitic mass]31.6 fcQpthyq35.0-35.0White HospitalComment on above:Performed By: #### CBC #### [address] [address]MQNQ98.8 %Dujrui44.0-37.0White HospitalComment on above:Performed By: #### CBC #### [address] [address]WOU (RBC) [Entitic vol]93.2 uVUpuzvk08.0-100.0White HospitalComment on above:Performed By: #### CBC #### [address] [address]Dbjyatyl141 x10*3/vhATrcfvr868-609MvljjjavrWhite HospitalComment on above:Performed By: #### CBC #### [address] [address]Xevouxvu mean volume (Bld) [Entitic vol]8.2 fLNormal6.7-10.6 White HospitalComment on above:Performed By: #### CBC #### [address] [address]UFI7.73 x10*6/mcLLow4.30-5.80[facility] Comment on above:Performed By: #### CBC #### [address] [address]JMV52.3 x10*3/mcLHigh4.5-11.0[facility] Comment on above:Performed By: #### CBC #### [address] [address]Mieanessuvkp Note - Genericon 45-24-6858Altkktrfsydw Note - GenericAssessment/Plan Hospital Course: Mr. Roland is a 79-year-old [...] head and neck, and UA ALL unremarkable. Patient safe for Med-Surg floors. Monitor vitals [...] PT/OT on board to evaluate when appropriate director construction services on board for discharge planning when appropriate [...] to Neurology, 03/04/25 11:57:00 EDT, Sarthak WALTERS, Deonte Brandon, [facility] delirium, No No Activity Instruction, 03/04/25 6:12:00 [...] some way when engaged, he does follow somedirections, underwent EEG, awaiting results. Patient is not [...] bilateral hemovac with mild sanguinous drainage. Minor erythemaat drain site insertion but no overt signs [...] No qualifying data availab (more content not included)...NormalBlHolzer Medical Center – JacksonDiff Autoon 34-59-7045Kqro Absolute0.1 x10*3/mcLNormal0.0-0.2 White HospitalComment on above:Performed By: #### .Manual Diff #### [address] [address]Toqiizqwp/100 WBC (Bld)0.4 %Normal0.0-1.2BWooster Community HospitalComment on above:Performed By: #### .Manual Diff #### [address] [address]Plu Absolute0.1 x10*3/mcLNormal0.0-0.4Bl[facility] Health SystemComment on above:Performed By: #### .Manual Diff #### [address] [address]Vurajglggyl/100 WBC (Bld)0.8 %Normal0.0-6.1BChillicothe VA Medical Center SystemComment on above:Performed By: #### .Manual Diff #### [address] [address]Gxxwf Absolute0.7 x10*3/mcLLow1.0-4.8BChillicothe VA Medical Center SystemComment on above:Performed By: #### .Manual Diff #### [address] [address]Jnjkybhwafv/100 WBC (Bld)4.5 %Low27.2-40.8BWooster Community HospitalComment on above:Performed By: #### .Manual Diff #### [address] [address]Mctx Absolute1.4 x10*3/mcLHigh0.3-1.1BChillicothe VA Medical Center SystemComment on above:Performed By: #### .Manual Diff #### [address] [address]Xbajukxat/100 WBC (Bld)8.7 %Normal4.7-13.9BChillicothe VA Medical Center SystemComment on above:Performed By: #### .Manual Diff #### [address] [address]Xdfwrw Qrnxbmdk63.9 x10*3/mcLHigh1.8-7.7BChillicothe VA Medical Center SystemComment on above:Performed By: #### .Manual Diff #### [address] [address]Pntrsr Auto85.6 %High47.2-70.8BChillicothe VA Medical Center System Comment on above:Performed By: #### .Manual Diff #### [address] [address]Hmbashzemq Progress Noteon 02-62-0037Gahgnlipda Progress Note Subjective Patient c/o headache last [...] Daily heparin, 5000 units= 1 mL, Subcutaneous, u1nf-Kqnnthoq Times hydroCHLOROthiazide, 25 mg, Oral, Daily Klor-Con M20, 20 mEq, Oral, Daily Lipitor, 40 mg, Oral, HS (at bedtime) losartan, 25 mg, Oral, Daily MiraLax, 17 g= 1 EA, Oral, Daily Multiple Vitamins oral tablet, 1 tabs, Oral, Daily Myrbetriq, 50 mg, Oral, Daily SEROquel, 25 mg, Oral, HS (at bedtime) thiamine, 100 mg= 1 mL, IV Push, Daily Tylenol, 650 mg, Oral, k4py-Mwtwaufc Times, PRN Zofran, 4 mg= 2 mL, IV Push, q4hr, PRN Assessment/Plan POD#8 s/p L2-5 decompression and fusion with durotomy Plan: 1. Remove drains 2. Tylenol prn pain 3. Activity - as tolerated. PT/OT, back brace when ambulating. If patient develops a headache, havehim lay flat 4. AM labs pending - BMP/CBC pending 5. Hospitalist consult for worsening confusion, work up negative 6. Discharge pending - SNF once set up Electronically signed by Christian Rae PA-C 03/04/25 06:14 [facility] .eGFRon 86-47-0858GMO/1.73 sq M.predicted MDRD (S/P/Bld) [Vol rate/Area] mL/min/{1.73_m2}Normal>=60White HospitalComment on above:Result Comment: [facility] Laboratories have implemented the eGFR calculation approach that does not havea coefficient for race and that conforms to [...] maximum of SCr/? or 1 Age = yearsPerformed By: #### .Manual Diff #### [address] [address]Kzvpu Metabolic Profileon 83-67-8245Bujec gap [Moles/Vol]7 mmol/LNormal4-12White HospitalComment on above:Performed By: #### CBC #### [address] [address]Izrfwvb [Mass/Vol]8.8 mg/dLNormal8.5-10.3BWooster Community HospitalComment on above:Performed By: #### CBC #### [address] [address]Npbihzpc [Moles/Vol]98 mmol/LLwilee29-109SibrqemqyWhite HospitalComment on above:Performed By: #### CBC #### [address] [address]IE6 [Moles/Vol]27 mmol/TEfslax80-36AeaflenyiWhite HospitalComment on above:Performed By: #### CBC #### [address] [address]Yenvfkqkyx [Mass/Vol]0.74 mg/dLNormal0.61-1.24White HospitalComment on above:Performed By: #### CBC #### [address] [address]Yomieht [Mass/Vol]111 mg/tXBdgn36-24YufmrtkiuWhite HospitalComment on above:Performed By: #### CBC #### [address] [address]Yhizpnrtn [Moles/Vol]3.3 mmol/LLow3.4-4.8BWooster Community HospitalComment on above:Performed By: #### CBC #### [address] [address]Ujlahq [Moles/Vol]132 mmol/QFlp052-578LpgpikzyaWhite HospitalComment on above:Performed By: #### CBC #### [address] [address]Rxmu nitrogen [Mass/Vol]18 mg/dLNormal8-26White HospitalComment on above:Performed By: #### CBC #### [address] [address]Jync nitrogen/Creatinine [Mass ratio]24.3 mg/meFkzc81.0-20.0 [facility] HospitalComment on above:Performed By: #### CBC #### [address] [address]DMV w/ Diffon 88-03-0805Hfvaytrtxeo distribution width (RBC) [Ratio]13.2 %Tkvtpn30.6-14.8BWooster Community HospitalComment on above: Performed By: #### CBC #### [address] [address]Nyhqwxuysm (Bld) [Volume fraction]34.3 %Low41.0-53.0White HospitalComment on above:Performed By: #### CBC #### [address] [address]Scpzicddtn (Bld) [Mass/Vol]11.7 g/dLLow13.5-17.5BWooster Community HospitalComment on above:Performed By: #### CBC #### [address] [address]AFZ (RBC) [Entitic mass]31.8 uhJddtdj54.0-35.0White HospitalComment on above:Performed By: #### CBC #### [address] [address]XQJO67.2 %Vzgeoy22.0-37.0White HospitalComment on above:Performed By: #### CBC #### [address] [address]SSC (RBC) [Entitic vol]93.1 lAPkstrw10.0-100.0White HospitalComment on above:Performed By: #### CBC #### [address] [address]Vlrstbya910 x10*3/hnCIdeegb552-957SwkatbipqWhite HospitalComment on above:Performed By: #### CBC #### [address] [address]Nfviufca mean volume (Bld) [Entitic vol]8.2 fLNormal6.7-10.6 White HospitalComment on above:Performed By: #### CBC #### [address] [address]VSQ9.68 x10*6/mcLLow4.30-5.80[facility] Comment on above:Performed By: #### CBC #### [address] [address]KJX8.9 x10*3/mcLNormal4.5-11.0[facility] Comment on above:Performed By: #### CBC #### [address] [address]Uumzchjtjbvm Note - Genericon 79-30-2076Vuszxjekrgzo Note - GenericAssessment/Plan Assessment/Plan Mr. Roland is a 79-year-old male [...] PT/OT on board to evaluate when appropriate director construction services on board for discharge planning when appropriate [...] - Orders heparin, 5,000 units, Subcutaneous, Injection, g4vi-Hgyuhhly Times, First Dose: 03/02/25 14:00:00 EDT, Dispense From Location: [address], 03/02/25 13:08:00 EDT potassium chloride, 40 mEq, Oral, Tab-ER, Once, First Dose: 03/03/25 16:00:00 EDT, Stop Date: 03/03/25 16:00:00 EDT, Dispense From Location: [address], 03/03/25 9:10:00 EDT Adjustment Inpatient, 02/27/25 8:00:00 EDT, Med-Surg, Medicine-General, 03/02/25 15:39:00 EDT, 03/02/25 15:39:00 EDT, pm_pso_link_preprocessing PSO Change, 03/02/25 15:40:53 EDT Consult to Grades 7 8 Tutor, 03/02/25 13:07:00 EDT, Discharge planning, 03/02/25 13:07:00 [...] bilateral hemovac with mild sanguinous drainage. Minor erythemaat drain site insertion but no overt signs [...] (MAR 02) Phos 2.6 (more content not included)...NormalWhite HospitalDiff Autoon 96-21-0553Smhu Absolute0.1 x10*3/mcLNormal0.0-0.2BWooster Community HospitalComment on above:Performed By: #### .Manual Diff #### [address] [address]Zxemqnyaz/100 WBC (Bld)0.8 %Normal0.0-1.2BWooster Community HospitalComment on above:Performed By: #### .Manual Diff #### [address] [address]Mzh Absolute0.3 x10*3/mcLNormal0.0-0.4BWooster Community HospitalComment on above:Performed By: #### .Manual Diff #### [address] [address]Zmcdeduhgga/100 WBC (Bld)2.9 %Normal0.0-6.1BWooster Community HospitalComment on above:Performed By: #### .Manual Diff #### [address] [address]Lwcvn Absolute1.0 x10*3/mcLNormal1.0-4.8BChillicothe VA Medical Center SystemComment on above:Performed By: #### .Manual Diff #### [address] [address]Vwlqrctyrhm/100 WBC (Bld)10.1 %Low27.2-40.8BChillicothe VA Medical Center SystemComment on above:Performed By: #### .Manual Diff #### [address] [address]Glzz Absolute1.1 x10*3/mcLNormal0.3-1.1BChillicothe VA Medical Center SystemComment on above:Performed By: #### .Manual Diff #### [address] [address]Tpbunyjuu/100 WBC (Bld)11.1 %Normal4.7-13.9BChillicothe VA Medical Center SystemComment on above:Performed By: #### .Manual Diff #### [address] [address]Rdnzke Absolute7.5 x10*3/mcLNormal1.8-7.7BChillicothe VA Medical Center SystemComment on above:Performed By: #### .Manual Diff #### [address] [address]Dbmcif Auto75.1 %High47.2-70.8BChillicothe VA Medical Center System Comment on above:Performed By: #### .Manual Diff #### [address] [address]Zspjmnteud Progress Noteon 90-09-5490Jvjpireqnh Progress Note Subjective patient drowsy this am, [...] intracranial abnormality. Brain atrophy unchanged. Signed By: Braden WALTERS, Neftali Chaparro Magnetic Resonance Imaging MRI Brain and MRA [...] Daily heparin, 5000 units= 1 mL, Subcutaneous, v3ba-Gffgscpi Times hydroCHLOROthiazide, 25 mg, Oral, Daily Klor-Con M20, 20 mEq, Oral, Daily Lipitor, 40 mg, Oral, HS (at bedtime) losartan, 25 mg, Oral, Daily MiraLax, 17 g= 1 EA, Oral, Daily Multiple Vitamins oral tablet, 1 tabs, Oral, Daily Myrbetriq, 50 mg, Oral, Daily SEROquel, 25 mg, Oral, HS (at bedtime) thiamine, 100 mg= 1 mL, IV Push, Daily Tylenol, 650 mg, Oral, i3lf-Bpxbbfcg Times, PRN Zofran, 4 mg= 2 mL, IV Push, q4hr, PRN Assessment/Plan POD#7 s/p L2-5 decompression and fusion with durotomy Plan: 1. Continue drains 2. Tylenol prn pain 3. Activity - as tolerated. PT/OT, back brace when ambulating. If patient develops a headache, havehim lay flat 4. AM labs pending 5. Hospitalist consult for worsening confusion, work up negative 6. Discharge pending - SNF once set up Electronically signed by Christian Rae PA-C 03/03/25 06:58 [facility] . Microscp Aon 21-81-4671BX Benjamín Cast Qual0-2NormalNegativeWhite HospitalComment on above:Performed By: #### CBC #### [address] [address]UA MucusPresentNormalAbsentWhite Hospital Comment on above:Performed By: #### CBC #### [address] [address]GX RBC Quant1 /HPFNormal0-5BWooster Community Hospital Comment on above:Performed By: #### CBC #### [address] [address]KR WBC Quant0 /HPFNormal0-5BWooster Community Hospital Comment on above:Performed By: #### CBC #### [address] [place] [address].eGFRon 52-64-2826ANS/1.73 sq M.predicted MDRD (S/P/Bld) [Vol rate/Area]mL/min/{1.73_m2}Normal>=60White HospitalComment on above:Result Comment: [facility] Laboratories have implemented the eGFR calculation approach that does not havea coefficient for race and that conforms to the NKF- ASN Task Force Recommendations. Stages of Chronic Kidney [...] maximum of SCr/? or 1 Age = yearsPerformed By: #### EGFR ####[facility] [place], [place] [address]Kppljfrcy 50-70-8229Lsnvjxm (P) [Moles/Vol]18 umol/L Normal9-35White HospitalComment on above:Performed By: #### TSH #### [address] [address]U79/Folate Lvlon 83-73-3720Htnxihexn (Vitamin B12) [Mass/Vol] 1036 pg/fRCrma997-154NqrcoomzwWooster Community HospitalComment on above:Performed By: #### .Manual Diff #### [address] [address]Guypke Lvl10.2 ng/mLNormal>=5.9[facility] Comment on above:Result Comment: A WHO Technical Consultation has determined that deficient Folate concentrations are considered to be less than 4 ng/mL. Performed By: #### .Manual Diff #### [address] [address]Ddwsn Metabolic Profileon 27-41-4777Wbaqm gap [Moles/Vol]7 mmol/LNormal4-12White HospitalComment on above:Performed By: #### CD:[id number] #### [address] [address]Zdzfxuk [Mass/Vol]8.8 mg/dLNormal8.5-10.3BWooster Community HospitalComment on above:Performed By: #### CD:[id number] #### [address] [address]Erdblvdx [Moles/Vol]98 mmol/TTxypno04-478BhmllbwauWhite HospitalComment on above:Performed By: #### CD:[id number] #### [address] [address]ND9 [Moles/Vol]27 mmol/HSuiowp61-63ZzaeumoomWhite HospitalComment on above:Performed By: #### CD:[id number] #### [address] [address]Wincuknter [Mass/Vol]0.65 mg/dLNormal0.61-1.24White HospitalComment on above:Performed By: #### CD:[id number] #### [address] [address]Jzqmnwr [Mass/Vol]113 mg/uXZzjj74-77IwnbryirnWhite HospitalComment on above:Performed By: #### CD:[id number] #### [address] [address]Gtshdowgt [Moles/Vol]3.0 mmol/LLow3.4-4.8BWooster Community HospitalComment on above:Performed By: #### CD:[id number] #### [address] [address]Smzptq [Moles/Vol]132 mmol/MVsw424-782MsepmxablWhite HospitalComment on above:Performed By: #### CD:[id number] #### [address] [address]Zadd nitrogen [Mass/Vol]13 mg/dLNormal8-26White HospitalComment on above:Performed By: #### CD:[id number] #### [address] [address]Qjor nitrogen/Creatinine [Mass ratio]20.0 mg/fgUeqiqc29.0-20.0 White HospitalComment on above:Performed By: #### CD:[id number] #### [address] [address]EEW w/ Diffon 22-74-1052Iwmffghsnix distribution width (RBC) [Ratio]13.4 %Kqwvkr00.6-14.8BWooster Community HospitalComment on above: Performed By: #### TSH #### [address] [address]Fvoyhlmyyr (Bld) [Volume fraction]32.7 %Low41.0-53.0White HospitalComment on above:Performed By: #### TSH #### [address] [address]Ztoqddmdoh (Bld) [Mass/Vol]11.5 g/dLLow13.5-17.5BWooster Community HospitalComment on above:Performed By: #### TSH #### [address] [address]ZHU (RBC) [Entitic mass]32.6 dmYepmbk36.0-35.0White HospitalComment on above:Performed By: #### TSH #### [address] [address]LGVN78.2 %Krtpkf25.0-37.0White HospitalComment on above:Performed By: #### TSH #### [address] [address]UBU (RBC) [Entitic vol]92.5 lXTcxpko25.0-100.0White HospitalComment on above:Performed By: #### TSH #### [address] [address]Hffhttwn150 x10*3/peQOclluh067-494SsrrqhmbxWhite HospitalComment on above:Performed By: #### TSH #### [address] [address]Zgnxlscd mean volume (Bld) [Entitic vol]8.4 fLNormal6.7-10.6 White HospitalComment on above:Performed By: #### TSH #### [address] [address]GPL7.54 x10*6/mcLLow4.30-5.80[facility] Comment on above:Performed By: #### TSH #### [address] [address]RKC7.5 x10*3/mcLNormal4.5-11.0[facility] Comment on above:Performed By: #### TSH #### [address] [address]VGCll 52-40-7013OVF4.83 mg/dLHigh0.00-0.75White HospitalComment on above:Result Comment: CRP measurement is useful for assessment of non-specific INFLAMMATORY RESPONSE to infection or injury AND is a sensitive MARKER of ACUTE INFLAMMATION including CARDIAC RISK ASSESSMENT. CARDIAC patients with elevated CRP are POTENTIALLY at a HIGHER RISK OF FUTURE CARDIAC EVENTS.Performed By: #### CD:[id number] #### [address] [address]CJ Brain w/o Contraston 69-30-3395MV Brain w/o Contrast NONCONTRAST HEAD CT COMPARISON: [...] abnormality. Brain atrophy unchanged. Radiation Dose Estimate: CTDI(mGy):0.582426 / / / kVp:120.894410 / mAs:0.087624 / / / DLP(mGy- cm):4.839270Qtnz Part: Head CTDI(mGy):47.472907 / / / kVp:120.032487 / mAs:194.324576 / / / DLP(mGy- cm):902.918392Zyjf Part: Head Final Dictated by: Neftali Feliciano MD Dictated DT/TM: 03.02.2025 8:23 am Signed by: Neftali Feliciano MD Signed (Electronic Signature): 03.02.2025 8:24 am (If Report Is Signed, Electronically Signed in Other Vendor System)[facility] HospitalConsultation Note - Genericon 03-02-2025 Consultation Note - GenericAssessment/Plan Assessment/Plan Mr. Roland is a 79-year-old male [...] PT/OT on board to evaluate when appropriate director construction services on board for discharge planning when appropriate [...] Dose: 03/02/25 9:00:00 EDT, Dispense From Location: [address], 03/02/25 2:26:00 EDT heparin, 5,000 units, Subcutaneous, Injection, n7zy-Lzlxpdfl Times, First Dose: 03/02/25 14:00:00 EDT, 03/02/25 13:08:00 EDT multivitamin, 1 tabs, Oral, Tab, Daily, First Dose: 03/02/25 9:00:00 EDT, Dispense From Location: [address], 03/02/25 2:26:00 EDT potassium chloride, 40 mEq, Oral, Tab-ER, Once, First Dose: 03/02/25 12:00:00 EDT, Stop Date: 03/02/25 12:00:00 EDT, Dispense From Location: [address], 03/02/25 12:00:00 EDT QUEtiapine, 25 mg, Oral, Tab, HS (at bedtime), First Dose: 03/02/25 21:00:00 EDT, Dispense From Location: [address], 03/02/25 2:26:00 EDT thiamine, 100 mg, IV Push, Injection, Daily for 5 days, First Dose: 03/02/25 9:00:00 EDT, Stop Date: 03/07/25 8:59:00 EDT, Dispense From Location: [facility], 03/02/25 7:16:00 EDT EKG, 03/02/25 8:00:00 EDT, Routine, Other (please specify), AMS, 03/02/25 8:00:00 EDT Consult to Hospitalist, 03/02/25 0:10:00 EDT, Becky WALTERS, Denny R, Medical management, Yes Consult to Grades 7 8 Tutor, 03/02/25 13:07:00 EDT, Discharge planning, 03/02/25 13:07:00 EDT Basic Metabolic Profile, Blood, Timed Study collect, 03/02/25 7:13:00 EDT, Daily for 3 days, Stop date 03/06/25 5:59:00 EDT, Lab Collect Complete Blood Count w/ Differential, Blood, Timed Study collect, 03/02/25 7:12:00 EDT, Daily for 3days, Stop date 03/06/25 5:59:00 EDT, Lab Collect Culture Blood, Peripheral Blood, Stat collect, 03/02/25 8:06:00 EDT, Stop date 03/02/25 8:07:00 EDT Culture Blood, Peripheral Blood, Routine collect, 03/02/25 9:47:00 EDT, Stop date 03/02/25 11:00:00EDT Clinical [place] Withdrawl Assessment, 03/02/25 2:26:00 EDT, q6hr, Q6h [...] is 25 or higher, call Provider for appropriateorders for patient transfer to ICU for further [...] (Oral) HR: 87 (Periphera (more content not included)...Normal White HospitalConsultation Note - GenericChief Complaint PT REPORTS LOW BACK PAIN. PATITO [...] delirium, ? ETOH withdrawal, insomnia, narcotics (last dose02/25/25). No focal neurological deficits. Hallucinations Acute hypokalemia HTN HLD Chronic peripheral neuropathy OAB ETOH abuse, reported per patient, amount unknown S/p L2-5 decompression and fusion with durotomy on 02/24/25 Obtain CBC, BMP, mag, phos, vitamin B12, folate, ammonia, CRP, troponin level in AM UA/UCx and CXR to look for infectious source EKG CT head w/o in AM Replete electrolytes as needed [facility] protocol for scoring, if ETOH abuse [...] peripheral neuropathy, and overactive bladder. Admitted under orthopedicsurgery for persistent low back pain and bilateral foot drop. Prior L4-S1 PSF done with Dr. Ang Rocha.He then had a HW removal and L3-4 decompression in 2018 at [place] with [address]. Larry. He then had aSCS and battery done Aug 2024 that is [...] re-orientation and direction. Primary team has concluded AMS/sotomayor llucination are due to narcotics, MAR reviewed last [...] bilateral hemovac with mild sanguinous drainage. Minor erythemaat drain site insertion but no overt signs [...] Arthritis Back pain Foot (more content not included)...NormalBlHolzer Medical Center – JacksonDiff Auto on 60-95-1156Knmc Absolute0.1 x10*3/mcLNormal0.0-0.2BWooster Community HospitalComment on above:Performed By: #### CBC #### [facility] [address] [place] [address]Rgkwmeydm/100 WBC (Bld)0.9 %Normal0.0-1.2BWooster Community HospitalComment on above:Performed By: #### CBC #### [address] [address]Gkr Absolute0.3 x10*3/mcLNormal0.0-0.4Blanch[facility] Valley Health SystemComment on above:Performed By: #### CBC #### [address] [address]Kwgyyfvbvsv/100 WBC (Bld)3.5 %Normal0.0-6.1BWooster Community HospitalComment on above:Performed By: #### CBC #### [address] [address]Igtod Absolute1.1 x10*3/mcLNormal1.0-4.8BChillicothe VA Medical Center SystemComment on above:Performed By: #### CBC #### [address] [address]Znetvxyeria/100 WBC (Bld)13.4 %Low27.2-40.8BWooster Community HospitalComment on above:Performed By: #### CBC #### [address] [address]Qtdf Absolute1.0 x10*3/mcLNormal0.3-1.1BWooster Community HospitalComment on above:Performed By: #### CBC #### [address] [address]Bizfjuzfy/100 WBC (Bld)12.0 %Normal4.7-13.9BWooster Community HospitalComment on above:Performed By: #### CBC #### [address] [address]Bflcvy Absolute6.0 x10*3/mcLNormal1.8-7.7BWooster Community HospitalComment on above:Performed By: #### CBC #### [address] [address]Mxrjcq Auto70.2 %Offycf40.2-70.8BChillicothe VA Medical Center System Comment on above:Performed By: #### CBC #### [address] [address]Efyz Nadia 21-70-1161Xtob form neutrophils/100 WBC (Bld)0 % Normal0-5BChillicothe VA Medical Center SystemComment on above:Performed By: #### CBC #### [address] [address]Hkrrbvrnm/100 WBC (Bld)1 %Normal0-3BWooster Community HospitalComment on above:Performed By: #### CBC #### [address] [address]Zccxijgcizi/100 WBC (Bld)9 %High0-7BWooster Community HospitalComment on above:Performed By: #### CBC #### [address] [address]Mauifxgqhhf/100 WBC (Bld)18 %Rquzwz58-72YsjoxiuhyWhite HospitalComment on above:Performed By: #### CBC #### [address] [address]Goznxdvhv/100 WBC (Bld)9 %Normal1-11BWooster Community HospitalComment on above:Performed By: #### CBC #### [address] [address]Nczdmkuo estimateAdequateNormPremier Health Upper [facility] Center System Comment on above:Performed By: #### CBC #### [address] [address]BAA morphology finding Nom (Bld)NormalNoUC HealthComment on above:Performed By: #### CBC #### [address] [address]Payu Man63 %Pqffhf35-61SsxtoltudWhite HospitalComment on above:Performed By: #### CBC #### [address] [address]FODG Randomon 30-09-9521fr Troponin I10 ng/LNormal0-20White HospitalComment on above:Performed By: #### CBC #### [address] [address]Wwh Func Panelon 83-08-6571Difutog [Mass/Vol]3.1 g/dLLow3.2-4.9 White HospitalComment on above:Performed By: #### TSH #### [address] [address]Vfk Phos70 IU/QRukola30-34HlcmoooqwWhite HospitalComment on above:Performed By: #### TSH #### [address] [address]SPM [Catalytic activity/Vol]18 U/DReoaof02-70JfwxshzlcWhite HospitalComment on above:Performed By: #### TSH #### [address] [address]ETS [Catalytic activity/Vol]18 U/PHcdwsc34-44AsxroqiotWhite HospitalComment on above:Performed By: #### TSH #### [address] [address]Smkp Direct0.2 mg/dLNormal0.1-0.5BWo[facility] Comment on above:Performed By: #### TSH #### [address] [address]Xede Indirect0.6 mg/dLNormal0.0-1.0White HospitalComment on above:Performed By: #### TSH #### [address] [address]Jvjs Total0.8 mg/dLNormal0.3-1.2BWo[facility] Comment on above:Performed By: #### TSH #### [address] [address]Yyhybuk [Mass/Vol]5.7 g/dLLow6.5-8.1BWooster Community HospitalComment on above:Performed By: #### TSH #### [address] [address]LOM Brain + MRA Head w/o Contraston 59-33-5504FIR Brain + MRA Head w/o ContrastEXAM: MRI Brain + MRA Head w/o Contrast [...] was performed without contrast utilizing axial 3-D zozf-vs-twfbxc imaging. [place] coronal reformats and maximum intensity projections were obtained. FINDINGS: MRI BRAIN: Motion degraded examination. There is proportional prominence of the ventricles and sulci compatible with mild generalized parenchymal volume loss. There are a few scattered foci of hyperintensity onT2-weighted imaging throughout the supratentorial periventricular and subcortical [...] The anterior communicating artery appears to be p redominantly supplied by the A1 segment of the [...] visualized. The intracranial dominant left vertebral artery, basilarartery, and bilateral posterior cerebral arteries are patent [...] Is Signed, Electronically Signed in Other Vendor System)Normal White HospitalComment on above:Order Comment: Not alert - needs screened by familyno phone numbers in chartNurse to call back 03/02@ 4437 Magnesiumon 23-11-6215Vdgwilfsz [Mass/Vol]2.0 mg/dLNormal1.7-2.4BWooster Community HospitalComment on above:Performed By: #### MG ####[facility] [place] [address]Wjxtzhzult Progress Noteon 86-30-6510Mfwjcbupes Progress NoteSubjective Hospitalist consulted for worsening confusion Patient slightly [...] mg, Oral, Daily Tylenol, 650 mg, Oral, r5gp-Jgpibstz Times, PRN Zofran, 4 mg= 2 mL, IV Push, q4hr, PRN Assessment/Plan POD#5 s/p L2-5 decompression and fusion with durotomy Plan: 1. Continue drains 2. Tylenol prn pain 3. Activity - as tolerated. PT/OT, back brace when ambulating. If patient develops a headache, havehim lay flat 4. AM labs pending 5. Hospitalist consult for worsening confusion, work up pending, appreciate input 6. Discharge pending - SNF Electronically signed by Christian Rae PA-C 03/02/25 07:10 EDTNormalBlHolzer Medical Center – Jackson Phosphoruson 04-96-5481Dcpohlqyy [Mass/Vol]2.6 mg/dLNormal2.5-4.6BWooster Community HospitalComment on above:Performed By: #### CBC #### [facility] [address] [place] [address]Penwmjhe Note-Nurseon 08-08-8026Cjqvkzie Note-NurseThis nurse notified by [facility] Kaelyn Martini that patient presented alert and [...] cultures, NIH Q4. CT scan ordered on court manager, this nurse called down to get him in right away. This nurse also called to notify and have her answer questions for MRI. Electronically signed by Jignesh Ja G 03/02/25 09:12 EDTNormAdena Pike Medical CenterTSHon 81-12-3145CUG Qn1.31 m[IU]/LNormal0.45-5.33White HospitalComment on above:Result Comment: Reference Ranges for individuals from to 18 years of age were obtained from The [employer] Handbook (20 ed) published by [facility]. Reference Ranges for Females: Females, 1st Trimester 0.05 ? 3.7 uIU/mL Females, 2nd Trimester 0.31 ? 4.35 uIU/mL Females, 3rd Trimester 0.41 ? 5.18 uIU/mLPerformed By: #### TSH #### [address] [address]PX w Culture if Indon 93-67-2729Uuncp (U)Light-YellowNormal YellowWhite HospitalComment on above:Performed By: #### CBC #### [address] [address]Sdjoyge Ql (U)NegativeNormalNegativeWhite HospitalComment on above:Performed By: #### CBC #### [address] [address]RV BloodNegativeNormalNegativeWhite Hospital Comment on above:Performed By: #### CBC #### [address] [address]MJ ClarityClearNormalClearWhite HospitalComment on above:Performed By: #### CBC #### [address] [address]CJ GlucoseNormalNormalNegPremier Health [facility] Hospital Comment on above:Performed By: #### CBC #### [address], [place] [address]UG Leukocyte EsteraseNegativeNormalNegPremier Health Miami Valley HospitalComment on above:Performed By: #### CBC #### [address], [place] [address]DO NitriteNegativeNormalNegPremier Health Miami [facility] Hospital Comment on above:Performed By: #### CBC #### [address], [place] [address]UF pH6.7Qylhzo8.5 - 7.8BlanMarietta Memorial HospitalComment on above:Performed By: #### CBC #### [address], [place] [address]W[place] ProteinNegativeNormsdNegPremier Health [facility] Hospital Comment on above:Performed By: #### CBC #### [address], [place] [address]EA SourceClean CatchNormAdena Pike Medical CenterComment on above:Performed By: #### CBC #### [address], [place] [address]AJ Spec Grav1.420Xuhyyg9.003-1.035White HospitalComment on above:Performed By: #### CBC #### [address], [place] [address]VR UrobilinogenNormalNormal0.2 - 1.0White HospitalComment on above:Performed By: #### CBC #### [address], [place] [address]Hpbvisjhgook (U) [Mass/Vol]NegativeNormalNegPremier Health Miami Valley HospitalComment on above:Performed By: #### CBC #### [address], [place] [address]UU Chest 1 Viewon 32-47-5452JU Chest 1 ViewEXAM: XR Chest 1 View HISTORY: Other (please specify), AMS; evaluate for [...] Is Signed, Electronically Signed in Other Vendor System)Normal [facility].eGFRon 74-89-3331ARY/1.73 sq M.predicted MDRD (S/P/Bld) [Vol rate/Area]mL/min/{1.73_m2}Normal>=60White HospitalComment on above:Result Comment: [facility] Laboratories have implemented the eGFR calculation approach that does not havea coefficient for race and that conforms to [...] maximum of SCr/? or 1 Age = yearsPerformed By: #### .Manual Diff #### [facility] [address] [place] [address]Csqlz Metabolic Profileon 16-75-3999Kgoix gap [Moles/Vol]7 mmol/LNormal4-12White HospitalComment on above:Performed By: #### CD:[id number] #### [address] [address]Spictnw [Mass/Vol]8.9 mg/dLNormal8.5-10.3BWooster Community HospitalComment on above:Performed By: #### CD:[id number] #### [address] [address]Agnodkap [Moles/Vol]100 mmol/ZRomxjy77-169BkcvyrkheWhite HospitalComment on above:Performed By: #### CD:[id number] #### [address] [address]DG8 [Moles/Vol]28 mmol/ZAdnezb61-84OvaranykmWhite HospitalComment on above:Performed By: #### CD:[id number] #### [address] [address]Sewvtrccid [Mass/Vol]0.60 mg/dLLow0.61-1.24White HospitalComment on above:Performed By: #### CD:[id number] #### [address] [address]Geafjxa [Mass/Vol]118 mg/iNJzbt21-59VmtvasjwvWhite HospitalComment on above:Performed By: #### CD:[id number] #### [address] [address]Awrkygkfp [Moles/Vol]3.0 mmol/LLow3.4-4.8BWooster Community HospitalComment on above:Performed By: #### CD:[id number] #### [address] [address]Eiblbb [Moles/Vol]135 mmol/LOjtwqi169-768SnlbklkxzWhite HospitalComment on above:Performed By: #### CD:[id number] #### [address] [address]Vfng nitrogen [Mass/Vol]11 mg/dLNormal8-26White HospitalComment on above:Performed By: #### CD:[id number] #### [address] [address]Irza nitrogen/Creatinine [Mass ratio]18.3 mg/ycEfbryy16.0-20.0 White HospitalComment on above:Performed By: #### CD:[id number] #### [address] [address]ECZ w/ Diffon 05-67-3637Bfyeoxobmaf distribution width (RBC) [Ratio]13.4 %Upuefr38.6-14.8BWooster Community HospitalComment on above: Performed By: #### CBC #### [address] [address] [address]Pnsnhvdjlg (Bld) [Volume fraction]34.8 %Low41.0-53.0White HospitalComment on above:Performed By: #### CBC #### [address] [address]Yygvdpslrj (Bld) [Mass/Vol]11.8 g/dLLow13.5-17.5BWooster Community HospitalComment on above:Performed By: #### CBC #### [address] [address]NFY (RBC) [Entitic mass]31.9 ciFjfqxr09.0-35.0White HospitalComment on above:Performed By: #### CBC #### [address] [address]JMQL43.9 %Caxeqg31.0-37.0White HospitalComment on above:Performed By: #### CBC #### [address] [address]DSJ (RBC) [Entitic vol]94.1 yVQwqifl19.0-100.0White HospitalComment on above:Performed By: #### CBC #### [address] [address]Lkfxdica953 x10*3/deDZqyzrm187-661PvyftwjvdHolzer Medical Center – JacksonComment on above:Performed By: #### CBC #### [address] [address]Obrmyrxp mean volume (Bld) [Entitic vol]8.6 fLNormal6.7-10.6 White HospitalComment on above:Performed By: #### CBC #### [address] [address]FQJ6.70 x10*6/mcLLow4.30-5.80[facility] Comment on above:Performed By: #### CBC #### [address] [address]YKZ2.3 x10*3/mcLNormal4.5-11.0[facility] Comment on above:Performed By: #### CBC #### [address] [address]Euew Autoon 94-95-1228Cueb Absolute0.1 x10*3/mcLNormal0.0-0.2 White HospitalComment on above:Performed By: #### CBC #### [address] [address]Thuyffmyu/100 WBC (Bld)0.5 %Normal0.0-1.2BWooster Community HospitalComment on above:Performed By: #### CBC #### [address] [address]Rrv Absolute0.3 x10*3/mcLNormal0.0-0.4BWooster Community HospitalComment on above:Performed By: #### CBC #### [address] [address]Tzjgmaekmnl/100 WBC (Bld)3.3 %Normal0.0-6.1BWooster Community HospitalComment on above:Performed By: #### CBC #### [address] [address]Yfond Absolute1.2 x10*3/mcLNormal1.0-4.8BWooster Community HospitalComment on above:Performed By: #### CBC #### [address] [address]Ntakdtfqhyn/100 WBC (Bld)12.6 %Low27.2-40.8BWooster Community HospitalComment on above:Performed By: #### CBC #### [address] [address]Lfcb Absolute1.2 x10*3/mcLHigh0.3-1.1BWooster Community HospitalComment on above:Performed By: #### CBC #### [address] [address]Izqyivrms/100 WBC (Bld)12.4 %Normal4.7-13.9BWooster Community HospitalComment on above:Performed By: #### CBC #### [address] [address]Cmjzwr Absolute6.6 x10*3/mcLNormal1.8-7.7BWooster Community HospitalComment on above:Performed By: #### CBC #### [address] [address]Qwhwlg Auto71.2 %High47.2-70.8BChillicothe [facility] System Comment on above:Performed By: #### CBC #### [address] [address]Okzl Nadia 75-51-9009Szox form neutrophils/100 WBC (Bld)1 % Normal0-5BChillicothe VA Medical Center SystemComment on above:Performed By: #### CBC #### [address] [address]Ctmcryhxh/100 WBC (Bld)0 %Normal0-3BChillicothe VA Medical Center SystemComment on above:Performed By: #### CBC #### [address] [address]Ejqrecotqwf/100 WBC (Bld)0 %Normal0-7BChillicothe VA Medical Center SystemComment on above:Performed By: #### CBC #### [facility] [address] [facility], [place] [address]SaxtorvbzfvylDcrcucBazffpMghxlwhnj Valley Health SystemComment on above:Performed By: #### CBC #### [facility] [address] [facility] [place] [address]Botoqqvczyp/100 WBC (Bld)8 %Qwp52-09UyscaodiaWhite HospitalComment on above:Performed By: #### CBC #### [facility] [address] [place], [place] [address]Xxktsbyhk/100 WBC (Bld)5 %Normal1-11BWooster Community HospitalComment on above:Performed By: #### CBC #### [address], [place] [address]Yxysmdbp estimateAdequateNoUC Health Comment on above:Performed By: #### CBC #### [address] [address]Koncu Lymph Man4 %Normal0-5BWooster [facility] Hospital Comment on above:Performed By: #### CBC #### [address], [place] [address]Fajg Man82 %Vfdb06-83GdjgnfhpeWhite HospitalComment on above:Performed By: #### CBC #### [address], [place] [address]Wsakjocwtu Progress Noteon 79-55-3563Lqqpnqxkmg Progress Note Subjective Surgical site pain controlled, [...] Oral, q4hr, PRN Tylenol, 650 mg, Oral, e9sk-Fcrcmvfy Times, PRN Zofran, 4 mg= 2 mL, IV Push, q4hr, PRN Assessment/Plan POD#4 s/p L2-5 decompression and fusion with durotomy Plan: 1. Continue drains 2. Tylenol prn pain 3. Activity - as tolerated. PT/OT, back brace when ambulating. If patient develops a headache, havehim lay flat 4. AM labs, hgb stable. Potassium recheck 5. UA ordered 6. Discharge pending - SNF Electronically signed by Christian Rae PA-C 03/01/25 14:44 EDTNormalBlHolzer Medical Center – Jackson Potassiumon 61-29-9546Srehixufr [Moles/Vol]3.4 mmol/LNormal3.4-4.8BWooster Community HospitalComment on above:Performed By: #### CD:[id number] #### [address] [address].eGFRon 60-63-8853JYZ/1.73 sq M.predicted MDRD (S/P/Bld) [Vol rate/Area]mL/min/{1.73_m2}Normal>=60White HospitalComment on above:Result Comment: [facility] have implemented the eGFR calculation approach that does not havea coefficient for race and that conforms to the NKF- ASN Task Force Recommendations. Stages of Chronic Kidney [...] maximum of SCr/? or 1 Age = yearsPerformed By: #### CD:[id number] #### [address] [place], [place] [address]Unokr Metabolic Profileon 40-44-9513Lknsx gap [Moles/Vol]6 mmol/LNormal4-12White HospitalComment on above:Performed By: #### CD:[id number] ####[id number] [place], [place] [address]Ysnbben [Mass/Vol]8.7 mg/dLNormal8.5-10.3BWooster Community Hospital Comment on above:Performed By: #### CD:[id number] ####[address] [address]Kxkzjknh [Moles/Vol]101 mmol/L Frreeo82-488NcdnxvcizWhite HospitalComment on above:Performed By: #### CD:[id number] ####[address] [address]TY1 [Moles/Vol]28 mmol/HVnildr37-81NnejchbwgWhite HospitalComment on above:Performed By: #### CD:[id number] ####[address] [address]Bcgyjdellw [Mass/Vol]0.63 mg/dLNormal0.61-1.24 White HospitalComment on above:Performed By: #### CD:[id number] ####[address] [address]Jilaeok [Mass/Vol]115 mg/jUTbix30-92RcdpdzdebWhite HospitalComment on above: Performed By: #### CD:[id number] ####[address] [address]Vffnvwfjb [Moles/Vol]3.3 mmol/LLow3.4-4.8BWooster Community HospitalComment on above:Performed By: #### CD:[id number] ####[address] [address]Qbnydh [Moles/Vol]135 mmol/PFtrpkr160-469EapsntltrWhite HospitalComment on above:Performed By: #### CD:[id number] ####[address] [address]Fsxj nitrogen [Mass/Vol]12 mg/dLNormal8-26[facility] Comment on above:Performed By: #### CD:[id number] ####[address] [address]Eqfg nitrogen/Creatinine [Mass ratio]19.0 mg/xuAnobgq40.0-20.0White HospitalComment on above: Performed By: #### CD:[id number] ####[address] [address]JCP w/ Diffon 75-24-9125Vpdfxhrvwga distribution width (RBC) [Ratio]13.4 %Axsujy67.6-14.8BWooster Community HospitalComment on above:Performed By: #### TSH #### [address] [address]Tuhmiutwqu (Bld) [Volume fraction]32.5 %Low41.0-53.0White HospitalComment on above:Performed By: #### TSH #### [address] [address]Nhzkioysqq (Bld) [Mass/Vol]11.4 g/dLLow13.5-17.5BWooster Community HospitalComment on above:Performed By: #### TSH #### [address] [address]GNH (RBC) [Entitic mass]32.9 yxSyjegn08.0-35.0White HospitalComment on above:Performed By: #### TSH #### [address] [address]YCGV49.1 %Ctzmhv39.0-37.0White HospitalComment on above:Performed By: #### TSH #### [address] [address]SUD (RBC) [Entitic vol]93.8 pLElemsm50.0-100.0White HospitalComment on above:Performed By: #### TSH #### [address] [address]Vhkqitlt276 x10*3/zgECeusem450-288CdvpgtlyaWhite HospitalComment on above:Performed By: #### TSH #### [address] [address]Oeihjkmo mean volume (Bld) [Entitic vol]8.6 fLNormal6.7-10.6 White HospitalComment on above:Performed By: #### TSH #### [address], [place] [address]AZK8.46 x10*6/mcLLow4.30-5.80[facility] Comment on above:Performed By: #### TSH #### [address], [place] [address]SFS3.2 x10*3/mcLNormal4.5-11.0[facility] Comment on above:Performed By: #### TSH #### [address], [place] [address]Jlfv Autoon 75-43-8560Wune Absolute0.0 x10*3/mcLNormal0.0-0.2 White HospitalComment on above:Performed By: #### TSH #### [address], [place] [address]Sivghvvoa/100 WBC (Bld)0.4 %Normal0.0-1.2BWooster Community HospitalComment on above:Performed By: #### TSH #### [address], [place] [address]Ooq Absolute0.3 x10*3/mcLNormal0.0-0.4BWooster Community HospitalComment on above:Performed By: #### TSH #### [address], [place] [address]Nknhqawtuqc/100 WBC (Bld)3.1 %Normal0.0-6.1BWooster Community HospitalComment on above:Performed By: #### TSH #### [address], [place] [address]Xubuf Absolute1.1 x10*3/mcLNormal1.0-4.8BWooster Community HospitalComment on above:Performed By: #### TSH #### [address], [place] [address]Kfgeethnbfs/100 WBC (Bld)12.9 %Low27.2-40.8BWooster Community HospitalComment on above:Performed By: #### TSH #### [address] [address]Swws Absolute0.9 x10*3/mcLNormal0.3-1.1BWooster Community HospitalComment on above:Performed By: #### TSH #### [address] [address]Otrwjlqaf/100 WBC (Bld)11.2 %Normal4.7-13.9BWooster Community HospitalComment on above:Performed By: #### TSH #### [address] [address]Cqndpy Absolute5.9 x10*3/mcLNormal1.8-7.7BWooster Community HospitalComment on above:Performed By: #### TSH #### [address] [address]Ehfqvx Auto72.4 %High47.2-70.8[facility] Comment on above:Performed By: #### TSH #### [address] [address]Xsbruyursp Progress Noteon 97-85-4512Xzvrpqwzls Progress Note Subjective POD#4, reports he just [...] Oral, q4hr, PRN Tylenol, 650 mg, Oral, m5ss-Tcqdrggn Times, PRN Zofran, 4 mg= 2 mL, IV Push, q4hr, PRN Assessment/Plan POD#4 s/p L2-5 decompression and fusion with durotomy Plan: 1. Continue drains 2. Tylenol prn pain 3. Activity - as tolerated. PT/OT, back brace when ambulating. 4. AM labs, hgb stable 5. Bowel meds 6. Remove barker 7. Discharge pending - SNF Electronically signed by Kirk Webre PA-C 02/28/25 10:30 [facility] .eGFRon 09-09-4366PSM/1.73 sq M.predicted MDRD (S/P/Bld) [Vol rate/Area] mL/min/{1.73_m2}Normal>=60White HospitalComment on above:Result Comment: [facility] Laboratories have implemented the eGFR calculation approach that does not havea coefficient for race and that conforms to [...] maximum of SCr/? or 1 Age = yearsPerformed By: #### .Manual Diff #### [address] [address]Aqybm Metabolic Profileon 82-11-8991Atgeq gap [Moles/Vol]5 mmol/LNormal4-12White HospitalComment on above:Performed By: #### CBC #### [address] [address]Pbzsjyn [Mass/Vol]8.5 mg/dLNormal8.5-10.3BWooster Community HospitalComment on above:Performed By: #### CBC #### [address] [address]Wlllktni [Moles/Vol]103 mmol/XElslxs56-852FxhjuzmulWhite HospitalComment on above:Performed By: #### CBC #### [address] [address]QW0 [Moles/Vol]27 mmol/SHyvzma02-83ZjblgizsyWhite HospitalComment on above:Performed By: #### CBC #### [address] [address]Yzpvfiqlgx [Mass/Vol]0.56 mg/dLLow0.61-1.24White HospitalComment on above:Performed By: #### CBC #### [address] [address]Cqpmhtu [Mass/Vol]116 mg/qRCrrs05-85TnnycxtfqWhite HospitalComment on above:Performed By: #### CBC #### [address] [address]Egzftnzpv [Moles/Vol]3.5 mmol/LNormal3.4-4.8BWooster Community HospitalComment on above:Performed By: #### CBC #### [address] [address]Unsnpy [Moles/Vol]135 mmol/AZikhxh254-651KmqtrwdsdWhite HospitalComment on above:Performed By: #### CBC #### [address] [address]Odcp nitrogen [Mass/Vol]11 mg/dLNormal8-26White HospitalComment on above:Performed By: #### CBC #### [address] [address]Qeob nitrogen/Creatinine [Mass ratio]19.6 mg/ziNpshjg43.0-20.0 White HospitalComment on above:Performed By: #### CBC #### [address] [address]IIB w/ Diffon 57-46-7531Wrddsugnpcx distribution width (RBC) [Ratio]13.6 %Tnbtar47.6-14.8BWooster Community HospitalComment on above: Performed By: #### CBC #### [address] [address]Iurovenzmf (Bld) [Volume fraction]31.9 %Low41.0-53.0White HospitalComment on above:Performed By: #### CBC #### [address] [address]Rquadldrkv (Bld) [Mass/Vol]10.8 g/dLLow13.5-17.5BWooster Community HospitalComment on above:Performed By: #### CBC #### [address] [address]SZA (RBC) [Entitic mass]32.3 xnTdnxxs88.0-35.0White HospitalComment on above:Performed By: #### CBC #### [address] [address]BJSA00.0 %Zydcwq12.0-37.0White HospitalComment on above:Performed By: #### CBC #### [address] [address]BQI (RBC) [Entitic vol]95.0 tTFimoxy27.0-100.0White HospitalComment on above:Performed By: #### CBC #### [address] x10*3/qrQJqmioz033-715PeoierlpcWhite HospitalComment on above:Performed By: #### CBC #### [address]Platelet mean volume (Bld) [Entitic vol]8.4 fLNormal6.7-10.6 White HospitalComment on above:Performed By: #### CBC #### [address] [address]CZU8.36 x10*6/mcLLow4.30-5.80[facility] Comment on above:Performed By: #### CBC #### [address] [address]WCH7.6 x10*3/mcLNormal4.5-11.0[facility] Comment on above:Performed By: #### CBC #### [address] [address]Cstm Autoon 27-88-9363Grzu Absolute0.1 x10*3/mcLNormal0.0-0.2 White HospitalComment on above:Performed By: #### .Manual Diff #### [address], [place] [address]Kkjzoueno/100 WBC (Bld)0.6 %Normal0.0-1.2BWooster Community HospitalComment on above:Performed By: #### .Manual Diff #### [address] [address]Pof Absolute0.2 x10*3/mcLNormal0.0-0.4BChillicothe VA Medical Center SystemComment on above:Performed By: #### .Manual Diff #### [address] [address]Gipuvmshyxx/100 WBC (Bld)1.9 %Normal0.0-6.1BChillicothe VA Medical Center SystemComment on above:Performed By: #### .Manual Diff #### [address] [address]Xmdju Absolute1.1 x10*3/mcLNormal1.0-4.8BChillicothe VA Medical Center SystemComment on above:Performed By: #### .Manual Diff #### [address] [address]Yktgefqgfwe/100 WBC (Bld)13.1 %Low27.2-40.8BChillicothe VA Medical Center SystemComment on above:Performed By: #### .Manual Diff #### [address] [address]Jxkg Absolute1.0 x10*3/mcLNormal0.3-1.1BChillicothe VA Medical Center SystemComment on above:Performed By: #### .Manual Diff #### [address] [address]Efbsxdntx/100 WBC (Bld)11.3 %Normal4.7-13.9BChillicothe VA Medical Center SystemComment on above:Performed By: #### .Manual Diff #### [address] [address]Egnjxr Absolute6.2 x10*3/mcLNormal1.8-7.7BChillicothe VA Medical Center SystemComment on above:Performed By: #### .Manual Diff #### [facility] [address] [place], [place] [address]Kbakot Auto73.1 %High47.2-70.8BW[facility] Comment on above:Performed By: #### .Manual Diff #### [facility] [address] [place], [place] [address]Gpqkkbycnw Progress Noteon 11-67-9568Ionitxlniy Progress Note Subjective POD#1, multiple complaints this [...] Oral, q4hr, PRN Tylenol, 650 mg, Oral, w8dg-Ssxyqzmy Times, PRN Zofran, 4 mg= 2 mL, IV Push, q4hr, PRN Assessment/Plan POD#3 s/p L2-5 decompression and fusion with durotomy Plan: 1. Continue drains 2. Tylenol prn pain 3. Activity - as tolerated. PT/OT, back brace when ambulating. If patient develops a headache, havehim lay flat 4. AM labs, hgb stable 5. Bowel meds 6. Remove barker 7. Discharge pending - SNF Electronically signed by Christian Rae PA-C 02/27/25 08:15 [facility] .eGFRon 46-61-5104GFL/1.73 sq M.predicted MDRD (S/P/Bld) [Vol rate/Area] mL/min/{1.73_m2}Normal>=60White HospitalComment on above:Result Comment: [facility] Laboratories have implemented the eGFR calculation approach that does not havea coefficient for race and that conforms to [...] maximum of SCr/? or 1 Age = yearsPerformed By: #### EGFR ####[address] [address]Rietf Metabolic Profileon 70-14-3266Vvnasfvpvi [Mass/Vol] 0.81 mg/dLNormal0.61-1.24White HospitalComment on above: Performed By: #### .Manual Diff #### [address] [address]Mdae nitrogen [Mass/Vol]11 mg/dLNormal8-26White HospitalComment on above:Performed By: #### .Manual Diff #### [address] [address]Bcli nitrogen/Creatinine [Mass ratio]13.6 mg/swFcahpm20.0-20.0 White HospitalComment on above:Performed By: #### .Manual Diff #### [address] [address]Ibpcm gap [Moles/Vol]5 mmol/LNormal4-12White HospitalComment on above:Performed By: #### .Manual Diff #### [address] [address]Msgkwos [Mass/Vol]8.4 mg/dLLow8.5-10.3BWooster Community HospitalComment on above:Performed By: #### .Manual Diff #### [address] [address]Wnncmpds [Moles/Vol]104 mmol/ATbqanp74-739IugfridjnWhite HospitalComment on above:Performed By: #### .Manual Diff #### [address] [address]WX3 [Moles/Vol]26 mmol/GEblype77-52EzgjdyhuaWhite HospitalComment on above:Performed By: #### .Manual Diff #### [address] [address]Aeetkqx [Mass/Vol]112 mg/pOQngw67-09VsigiqgvlWhite HospitalComment on above:Performed By: #### .Manual Diff #### [address] [address]Ndhngzntu [Moles/Vol]3.6 mmol/LNormal3.4-4.8BWooster Community HospitalComment on above:Performed By: #### .Manual Diff #### [address] [address]Kwpfbe [Moles/Vol]135 mmol/RXyyhve391-594SqreuxzjeWhite HospitalComment on above:Performed By: #### .Manual Diff #### [address] [address]VWU w/ Diffon 64-62-1611Ymipfzkfrxz distribution width (RBC) [Ratio]13.7 %Bgotov96.6-14.8BWooster Community HospitalComment on above: Performed By: #### CBC #### [address] [address]Ywlbqnxmuh (Bld) [Volume fraction]32.0 %Low41.0-53.0White HospitalComment on above:Performed By: #### CBC #### [address] [address]Evknaryova (Bld) [Mass/Vol]11.2 g/dLLow13.5-17.5BWooster Community HospitalComment on above:Performed By: #### CBC #### [address] [address]OIO (RBC) [Entitic mass]33.1 qmVutokt79.0-35.0White HospitalComment on above:Performed By: #### CBC #### [address], [place] [address]VTYN83.9 %Afrsiu96.0-37.0White HospitalComment on above:Performed By: #### CBC #### [address] [address]SIV (RBC) [Entitic vol]94.9 aTFojjuy57.0-100.0White HospitalComment on above:Performed By: #### CBC #### [address] [address]Rpwczshu144 x10*3/btSVhximi010-191DxavgcjaxWhite HospitalComment on above:Performed By: #### CBC #### [address] [address]Zgtvbkod mean volume (Bld) [Entitic vol]8.5 fLNormal6.7-10.6 White HospitalComment on above:Performed By: #### CBC #### [address] [address]HBY2.37 x10*6/mcLLow4.30-5.80[facility] Comment on above:Performed By: #### CBC #### [address] [address]KLN9.9 x10*3/mcLNormal4.5-11.0[facility] Comment on above:Performed By: #### CBC #### [address] [address]Crjt Autoon 44-23-3010Adow Absolute0.0 x10*3/mcLNormal0.0-0.2 White HospitalComment on above:Performed By: #### .Manual Diff #### [address] [address]Ezzonlkjj/100 WBC (Bld)0.4 %Normal0.0-1.2BWooster Community HospitalComment on above:Performed By: #### .Manual Diff #### [address] [address]Tpc Absolute0.1 x10*3/mcLNormal0.0-0.4BChillicothe VA Medical Center SystemComment on above:Performed By: #### .Manual Diff #### [address] [address]Svwvkwxzebs/100 WBC (Bld)0.6 %Normal0.0-6.1BChillicothe VA Medical Center SystemComment on above:Performed By: #### .Manual Diff #### [address] [address]Pkjzg Absolute1.4 x10*3/mcLNormal1.0-4.8BWooster Community HospitalComment on above:Performed By: #### .Manual Diff #### [address] [address]Xtfndbtrdqp/100 WBC (Bld)14.0 %Low27.2-40.8BChillicothe VA Medical Center SystemComment on above:Performed By: #### .Manual Diff #### [address] [address]Jeyz Absolute1.0 x10*3/mcLNormal0.3-1.1BWooster Community HospitalComment on above:Performed By: #### .Manual Diff #### [address] [address]Hcaykraso/100 WBC (Bld)10.0 %Normal4.7-13.9BChillicothe VA Medical Center SystemComment on above:Performed By: #### .Manual Diff #### [address] [address]Jlijml Absolute7.4 x10*3/mcLNormal1.8-7.7BChillicothe VA Medical Center SystemComment on above:Performed By: #### .Manual Diff #### [address] [address]Vnifnf Auto75.0 %High47.2-70.8BChillicothe VA Medical Center System Comment on above:Performed By: #### .Manual Diff #### [facility] [address] [place], [place] [address]Xtqbykscdg Progress Noteon 59-39-5649Svkihwumzu Progress Note Subjective POD #2 Patient sitting [...] Oral, q4hr, PRN Tylenol, 650 mg, Oral, g0jg-Beautuvy Times, PRN Zofran, 4 mg= 2 mL, IV Push, q4hr, PRN Assessment/Plan POD#2 s/p L2-5 decompression and fusion with durotomy Plan: 1. Continue drains 2. Pain controlled 3. Activity - as tolerated 4. Labs pending 5. PT/OT today 6. Discharge pending Electronically signed by Kirk Weber PA-C 02/26/25 07:03 [facility] Progress Note-Nurseon 53-04-7091Kumgdiem Note-NursePatient refused to ambulate to the chair for breakfast. Electronically signed by Anupama Pacheco 02/26/25 16:26 [facility] Orthopedic Progress Noteon 61-96-0203Uiboaypnwf Progress NoteSubjective POD #1 Patient laying flat in bed. [...] hours until sitting up to 90 degrees. Ifpatient develops headache then lay flat for rest of the day. 4. Labs pending 5. Discharge pending Electronically signed by Kirk Weber PA-C 02/25/25 06:54 [facility] XR OR Spine Lumbar Crossfireon 39-69-0402SD OR Spine Lumbar Crossfire This report was [...] Is Signed, Electronically Signed in Other Vendor System)Normal [facility] SystemECG 12 Leadon 48-70-5079Gcdoeh sinus rhythm, nonspecific ST and T changes, borderline ECGCPACSKing's Daughters [facility] [place] Work Phone: activated partial thromboplastin time (aPTT) in platelet poor plasma by coagulation aon 96-81-4797bGRV Coag (PPP) [Time] Activated partial thromboplastin time (aPTT) in platelet poor plasma by coagulation a22.3-36.2FUniversity Hospitals Parma Medical CenterBasophils Auto (Bld) [#/Vol]on 23-95-7319Rnibodmfu (Bld) [#/Vol]Automated basophil count0.0-0.1 [facility] HospitalBasophils/100 WBC Auto (Bld)on 01-26-2025 Basophils/100 WBC (Bld)Automated basophil %0.2-2.0Doctors HospitalEosinophils/100 WBC Auto (Bld)on 17-70-3906Drrwgjvkquh/100 WBC (Bld) Automated eosinophil %0.9-7.0Doctors HospitalErythrocyte distribution width Auto (RBC) [Ratio]on 82-23-5456Rruwxutsuxd distribution width (RBC) [Ratio]Erythrocyte distribution width [Ratio] by Automated count11.0-15.0 Doctors HospitalEstimated glomerular filtration rate (GFR) non- Americanon 55-38-6368RSP/1.73 sq M.predicted among non-blacks MDRD (S/P/Bld) [Vol rate/Area]Estimated glomerular filtration rate (GFR) non->=60 mL/min/1.73m 2FUniversity Hospitals Parma Medical CenterHematocrit Auto (Bld) [Volume fraction]on 09-93-6304Yoobinrytb (Bld) [Volume fraction]Hematocrit [Volume Fraction] of Blood by Automated count42.0-54.0Do[facility] HospitalHemoglobin [Mass/volume] in Bloodon 33-78-1664Fogjfojmjk (Bld) [Mass/Vol] Hemoglobin [Mass/volume] in Blood14.0-18.0Do[facility] HospitalINR in Platelet poor plasma by Coagulation assayon 04-54-9861MRQ Coag (PPP) [Relative time]INR in Platelet poor plasma by Coagulation assayDoctors HospitalComment on above:DESIRED INR:2.0-3.0 CONDITIONS NOT LISTED BELOW2.5-3.5 FOR PROSTHETIC HEART VALVE REPLACEMENT2.5-3.5 RECURRENT THROMBOSISLaboratory - Chemistry and Chemistry - challengeon 75-43-7735Kdjrxys [Mass/Vol]9.2 mg/dL8.5-10.1FUniversity Hospitals Parma Medical CenterChloride [Moles/Vol] 100 mmol/X26-615XejvhwnbfDoctors HospitalCO2 [Moles/Vol]29.9 mmol/L 21.0-32.0Do[facility] HospitalCreatinine [Mass/Vol]0.94 mg/dL 0.70-1.30Doctors HospitalGFR/1.73 sq M.predicted MDRD (S/P/Bld) [Vol rate/Area]mL/min/{1.73_m2}>=60 mL/min/1.73m 2FUniversity Hospitals Parma Medical CenterGlucose [Mass/Vol]129 mg/xLInxq80-725VdptqutxvDoctors Hospital Potassium [Moles/Vol]4.2 mmol/L3.5-5.1FMercy Health St. Rita's Medical Centerodium [Moles/Vol]138 mmol/C331-437DkzkpetqrDoctors HospitalUrea nitrogen [Mass/Vol]19.0 mg/dLHigh7.0-18.0Doctors HospitalUrea nitrogen/Creatinine [Mass ratio]20.2 mg/mgDoctors Hospital Laboratory - Hematology and Cell countson 77-21-6318Vdresfzw granulocytes/100 WBC (Bld)0.8 %High0.0-0.5FUniversity Hospitals Parma Medical CenterLeukocytes [#/volume] corrected for nucleated erythrocytes in Blood by Automated counon 05-72-0321WKK corrected for nucl RBC Auto (Bld) [#/Vol]Leukocytes [#/volume] corrected for nucleated erythrocytes in Blood by Automated coun4.0-11.0Doctors HospitalLymphocytes Auto (Bld) [#/Vol]on 53-24-0153Otilwhqcnsa (Bld) [#/Vol]Lymphocytes [#/volume] in Blood by Automated count1.2-3.8Doctors HospitalLymphocytes/100 WBC Auto (Bld)on 01-26-2025 Lymphocytes/100 WBC (Bld)Lymphocytes/100 leukocytes in Blood by Automated count Low20.5-60.0[facility] CenterH Auto (RBC) [Entitic mass]on 81-44-9754GIT (RBC) [Entitic mass]MCH [Entitic mass] by Automated count25.9-34.0 Doctors HospitalMCHC Auto (RBC) [Mass/Vol]on 14-38-5025RASD (RBC) [Mass/Vol]MCHC [Mass/volume] by Automated count29.9-35.2FNationwide Children's HospitalV Auto (RBC) [Entitic vol]on 91-03-9936VZA (RBC) [Entitic vol] MCV [Entitic volume] by Automated count80.0-94.0Doctors HospitalMonocytes Auto (Bld) [#/Vol]on 78-95-0061Cxusinkjo (Bld) [#/Vol]Automated blood monocyte count0.3-0.8Doctors HospitalMonocytes/100 WBC Auto (Bld)on 97-80-9936Xmunjefxd/100 WBC (Bld)Automated monocyte %1.7-12.0 Doctors HospitalNeutrophils Auto (Bld) [#/Vol]on 01-26-2025 Neutrophils (Bld) [#/Vol]Neutrophils [#/volume] in Blood by Automated count 1.4-6.5FUniversity Hospitals Parma Medical CenterNeutrophils/100 WBC Auto (Bld)on 49-27-8502Nuygbisltbc/100 WBC (Bld)Automated neutrophil %43.0-75.0Doctors HospitalNo Panel Informationon 43-19-1801Ifobfgbqgcd # (Auto)0.1 10 3/uL0.0-0.7FUniversity Hospitals Parma Medical CenterImmature Granulocyte # (Auto)0.06 10 3/uLHigh0.00-0.03Doctors HospitalPlatelet mean volume Auto (Bld) [Entitic vol]on 54-79-3406Aktrgeqg mean volume (Bld) [Entitic vol]Platelet mean volume [Entitic volume] in Blood by Automated count9.5-13.5FUniversity Hospitals Parma Medical CenterPlatelets Auto (Bld) [#/Vol]on 82-33-9175Qzufhziag (Bld) [#/Vol]Platelets [#/volume] in Blood by Automated netul361-848PaqpmzhydDoctors HospitalProthrombin time (PT)on 76-19-7138UK Coag (PPP) [Time]Prothrombin time (PT)9.0-11.6FUniversity Hospitals Parma Medical CenterRBC Auto (Bld) [#/Vol]on 84-89-9148SPW (Bld) [#/Vol]Erythrocytes [#/volume] in Blood by Automated count Low4.70-6.10[facility] Medical Centererum or plasma anion gap determinationon 44-78-9032Sfhun gap [Moles/Vol]Serum or plasma anion gap determinationDoctors HospitalXR Knee - right 1 or 2 Viewson 14-64-9835Liyxxnm Result: AP and lateral of right knee [...] dislocation. Impression: Unremarkable right total knee arthroplasty. [facility] HealthcareRadiology Study observation (narrative)[facility] HealthcareMain OR Intraoperative Recordon 59-02-5636Iqml OR Intraoperative RecordMain OR Intraoperative Record IntraOp Document Type FTPM Summary Primary Physician: Bert Huang DO Finalized Date/Time: 08/19/24 10:42:12 Pt. Name: EDVIN ROLAND/Sex: 1945 Male Med Rec #: [id number] Physician: Bert Huang DO Financial #: [id number] Pt. Type: P Room/Bed: / Admit/Disch: 08/19/24 06:54:46 - Institution: Case Times FTPM Entry 1 Patient Times In Room 08/19/24 08:11:00 Out Room 08/19/24 10:05:00 Procedure Times Start 08/19/24 08:36:00 Stop 08/19/24 10:00:00 Anesthesia Times Start 08/19/24 08:11:00 Stop 08/19/24 10:05:00 Last Modified By: Robin JENNINGS, Tomasa Davidson 08/19/24 10:05:45 Case Attendance FTPM Entry 1 Entry 2 Entry 3 Case Attendee Cari MCGARRY, Liliana Huang DO, Bert Jacobo RT, Bobo Chen Role Performed Anesthesiologist Surgeon - Primary Talent Development Consultant Catalogue Compiler Time In 08/19/24 08:11:00 08/19/24 08:11:00 08/19/24 08:11:00 Time Out 08/19/24 10:05:00 08/19/24 10:05:00 08/19/24 10:05:00 Procedure SPINAL CORD STIMULATOR SPINAL CORD STIMULATOR SPINAL CORD STIMULATOR IMPLANT(.) IMPLANT(.) IMPLANT(.) Comments Last Modified By: Robin RN, Tomasa Kelly RN, Tomasa Kelly RN, Tomasa Davidson 08/19/24 10:05:45 08/19/24 10:05:45 08/19/24 10:05:45 Entry 4 Entry 5 Case Attendee Gerry JENNINGS, Savannah Kelly RN, Tomasa Davidson Role Performed Scrub - Primary Boat Engines Installer - Primary Time In 08/19/24 08:11:00 08/19/24 08:11:00 Time Out 08/19/24 10:05:00 08/19/24 10:05:00 Procedure SPINAL CORD STIMULATOR SPINAL CORD STIMULATOR IMPLANT(.) IMPLANT(.) Comments Last Modified By: Robin RN, Tomasa Kelly RN, Tomasa Davidson 08/19/24 [...] Bradford A., Odalis RT, Bobo P, Cari HYPERION ANALYST, Liliana Hagen Time Out Complete 08/19/24 08:30:00 [...] and tissue Entry 1 Skin Integrity Intact, [place], Warm, & Skin Abnormality No Dry Outcomes Met? Yes Last Modified By: Robin JENNINGS, Tomasa Davidson 08/19/24 08:06:27 Post-Care Text: The patient is [...] Feet Uncrossed? Yes Left (more content not included)...[facility] CenterMain OR Preoperative Recordon 80-66-6572Qafg OR Preoperative RecordMain OR Preoperative Record Holding Area Document Type FTPM Summary Primary Physician: Bert Huang DO Finalized Date/Time: 08/19/24 07:57:29 Pt. Name: EDVIN ROLAND/Sex: 1945 Male Med Rec #: [id number] Physician: Bert Huang DO Financial #: [id number] Pt. 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 A 5 cm incision was then made in a longitudinal paramedian approach on the left side lumbar spine along the needle trajectory using an 11 blade. A touhy needle was then advanced into the epidural space with confirmation using glass cgkt-qx-qzdsbxeojd syringe and lead was threaded at T11/12 . A second Touhy was then advanced underneath the initial Touhy. Next we proceeded with epidural placement of both of Avista 50 cm 8 contact leads advanced to the bottom of T7 vertebral level. AP and lateral radiograph confirmed posterior placement. The patient was then awoken andcomplex programming was performed to ensure adequate coverage to her painful regions. Once completecoverage of her painful areas was confirmed, the patient's anesthetic was deepened. We then irrigated the incision with sterile saline at the point of entry of her stimulator leads, next clik anchorswere utilized to affix the stimulator leads to the paraspinous fascia/ligament. Fixate sutures wereused to attach the anchors to appropriate fascial [...] wound was irrigated with sterile saline. The [employer] greeting card writer alpha 16 pulse generator kit was then attached to the spinal cord stimulator leads after a Touhy needle wasused to create a channel between the 2 [...] pocket. Then with the help of the firstassist both wounds were closed in a stepwise fashion using 0 Vicryl for the deep fascial layer, 2-0Vicryl was then used for the superficial fascial [...] antibiotics were provided. Correction to above: No assistant property manager was utilized during this case. Closure was performed by myself.[facility] Medical CenterComment on above:Result Comment: Electronically Signed By: Bert Huang DO.amy\Date and Time Signed: 08/19/24 10:38 EDTProceduralon 31-90-0662BlgcgavjelEgpqiunrnw Patient: EDVIN ROLAND Age: 78 years Sex: [...] list: All Problems Anticoagulated / SNOMED CT 990480716 / Confirmed At risk for falls / SNOMED CT 614926563 / Possible BMI 31.0-31.9,adult / SNOMED CT 296797459 / Confirmed BPH with urinary obstruction / SNOMED CT 4652681972 / Confirmed Chronic prostatitis / SNOMED CT 06475075 / Confirmed Dysuria / SNOMED CT 85383406 / Confirmed ED (erectile dysfunction) / SNOMED CT 5731809210 / Confirmed Elevated PSA / SNOMED CT 9239462919 / Confirmed Gross hematuria / SNOMED CT 109370066 / Confirmed Hernia, inguinal, right / SNOMED CT 219515882 / Confirmed Hypercholesterolemia / SNOMED CT 26260835 / Confirmed Impotence / SNOMED CT 9168503854 / Confirmed Incomplete bladder emptying / SNOMED CT 149277930 / Confirmed Incontinence without sensory awareness / SNOMED CT 9939231003 / Confirmed Leaking of urine / SNOMED CT 1850415384 / Confirmed Nocturia / SNOMED CT 321602284 / Confirmed Post-void dribbling / SNOMED CT 498699813 / Confirmed Prostate cancer screening / SNOMED CT 019046390 / Confirmed Urge incontinence / SNOMED CT 202101499 / Confirmed Urinary frequency / SNOMED CT 983662814 / Confirmed Urinary incontinence / SNOMED CT 0168553943 / Confirmed Urinary retention / SNOMED CT 540686939 / Confirmed Weak urinary stream / SNOMED CT 077997312 / Confirmed Resolved: Hypertension / SNOMED CT 8855307220 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 FINAL REPORTS Final Report [] Verified Date/Time: 08/14/2024 10:10 EDT MRSA Negative. Performing Locations R1: This test was performed at: [facility], [address] [place] [address], [address] , , XscspqHtfhjgCommunity Regional Medical CenterComment on above:Performed By: #### [id number] #### [facility] [address] [place] [address]Vkhn OR Intraoperative Recordon 13-04-9612Twgv OR Intraoperative RecordMain OR Intraoperative Record IntraOp Document Type FTPM Summary Primary Physician: Bert Huang DO Finalized Date/Time: 06/24/24 09:11:34 Pt. Name: EDVIN ROLAND/Sex: 1945 Male Med Rec #: [id number] Physician: Bert Huang DO Financial #: [id number] Pt. Type: P Room/Bed: / Admit/Disch: 06/24/24 06:57:10 - Institution: Case Times FTPM Entry 1 Patient Times In Room 06/24/24 08:04:00 Out Room 06/24/24 09:10:00 Procedure Times Start 06/24/24 08:14:00 Stop 06/24/24 09:06:00 Anesthesia Times Start 06/24/24 08:04:00 Stop 06/24/24 09:10:00 Last Modified By: Robin JENNINGS, Tomasa Davidson 06/24/24 09:11:28 Case Attendance FTPM Entry 1 Entry 2 Entry 3 Case Attendee Liliana Alcala CRNA, DO, Bradford A. Roderick RN, Tomasa Davidson Role Performed Anesthesiologist Surgeon - Primary Boat Engines Installer - Primary Catalogue Compiler Time In 06/24/24 08:04:00 06/24/24 08:04:00 06/24/24 [...] Role Performed Scrub - Primary Anesthesiologist of Talent Development Consultant Record Time In 06/24/24 08:04:00 06/24/24 08:04:00 06/24/24 08:04:00 Time Out 06/24/24 09:10:00 06/24/24 09:10:00 06/24/24 09:10:00 Procedure SPINAL CORD STIMULATOR SPINAL CORD STIMULATOR SPINAL CORD STIMULATOR TRIAL(.) TRIAL(.) TRIAL(.) Comments Last Modified By: Robin JENNINGS, Tomasa Kelly RN, Tomasa Alexander RN 06/24/24 09:11:29 06/24/24 09:11:29 06/24/24 09:11:29 Entry 7 Case Attendee Iris Sheffield Role Performed Talent Development Consultant Time In 06/24/24 08:04:00 Time Out 06/24/24 09:10:00 Procedure SPINAL CORD STIMULATOR TRIAL(.) Comments Last Modified By: Tomasa Kelly RN 06/24/24 09:11:29 General Comments: [employer] [facility] Main CampusSerene Khan Perioperative Protocols FTPM Pre-Care Text: Implements [...] and tissue Entry 1 Skin Integrity Intact, [place], Warm, & Skin Abnormality No Dry Outcomes Met? Yes Last Modified By: Tomasa Kelly RN 06/24/24 07:37:40 Post-Care Text: The patient is free from (more content not included)...[facility] CenterMain OR Preoperative Recordon 81-85-0414Lubp OR Preoperative RecordMain OR Preoperative Record Holding Area Document Type FT Summary Primary Physician: eBrt Huang DO Finalized Date/Time: 06/24/24 07:19:15 Pt. Name: EDVIN ROLAND [place]/Sex: 1945 Male Med Rec #: [id number] Physician: Bert Huang DO Financial #: [id number] Pt. Type: P Room/Bed: / Admit/Disch: 06/24/24 06:57:10 - Institution: Case Times Holding FTPM Pre-Care Text: Verifies consent for planned procedure, identifies individual values and wishes concerning care, includes family members in perioperative teaching Secures patient's records' belongings, and valuables, maintains patient's dignity and privacy, and maintains patient confidentiality Entry 1 In Holding 06/24/24 07:13:00 Outcomes Met? Yes Last Modified By: Mesfin Samaniego RN 06/24/24 07:13:45 Post-Care Text: The patient participates in decisions affecting his or her perioperative plan of care The patient'sright to privacy is maintained Surgery Checklist FTPM [...] comments below for reason Last Modified By: Mesfin Samaniego RN 06/24/24 07:19:12 Finalized By: Mesfin Samaniego RN Document Signatures Signed By: Mesfin Samaniego RN 06/24/24 07:19[facility] Operative Reporton 56-00-2467Cklocscwr ReportOperative Report Diagnosis: Lumbar postlaminectomy pain syndrome, M96.1. Chronic pain syndrome G89.29. Procedure: Spinal cord stimulator trial under fluoroscopic guidance with two 16 contact Infinion leads from [employer] and 2 click anchors, 74182. Analyze neurostimulator complex, [address]. Anesthesia: MAC Complications: None Description: After informed [...] the epidural space with confirmation using glass ftbw-uv-nxfgppwkjn syringe and lead was threaded at T12/L1. [...] prescribed plan regarding her spinal cord stimulator trial.[facility] Medical CenterComment on above:Result Comment: Electronically Signed By: Bert Huang DO.amy\Date and Time Signed: 06/24/24 09:14 EDTMRSA Screenon 03-84-9367WJKF DNA TRIPP+probe Ql (Unsp spec)Microbiology PROCEDURE: MRSA Screen [R1] SOURCE: Nasal BODY SITE: COLLECTED DATE/TIME: 06/17/2024 12:25 EDT RECEIVED DATE/TIME: 06/17/2024 12:28 EDT START DATE/TIME: 06/17/2024 12:28 EDT FREE TEXT SOURCE: Bert Huang DO, DO, Bradford A. FINAL REPORTS Final Report [] Verified Date/Time: 06/19/2024 09:27 EDT MRSA Negative. Performing Locations R1: This test was performed at: [facility], [address] [place] [address], [address]- , [place], FpbylxGpygbdCommunity Regional Medical CenterComment on above:Performed By: #### [id number] #### [facility] [address] [place] [address]Vwaghywimx Visit Summaryon 90-31-9109Zzvkbbvhim Visit Summary Ambulatory Visit Summary EDVIN ROLAND :1945 Visit Date:06/12/2024 Ambulatory Visit Instructions Your Diagnosis Incontinence without sensory awareness Incomplete bladder emptying BPH with urinary obstruction ED (erectile dysfunction) Nocturia Your Care Team Attending Physician - ALANIS WOOD PA-C Primary Care Physician - RAFAEL REYNA, DOROTHY This Is Your Medications List Contact prescribing [...] AM EDT With: Bert Huang DO Where: [facility] Sunday 8:00 AM EDT With: Where: [facility] Sunday 8:45 AM EDT With: Stephenie Barrios PA-C Where: [facility] You Need to Schedule the Following Appointments Follow Up with ALANIS WOOD PA-C, URL When: Comments: PRN Where: [address] [place] [address] Medications What How Much When [...] Ongoing - Any p (more content not included)...[facility] Urology Office/Clinic Noteon 06-69-8706Fytzonr Office/Clinic NoteUrology Office/Clinic Note Chief Complaint Incontinence HPI Staff [...] rashes or suspicious lesions Assessment/Plan saw DLS [id number] 1. Incontinence without sensory awareness (N39.42: Incontinence [...] his bladder. Rarely voids on his own, justleaks constantly. Wears a pad. States urinary sxs [...] for ADLs. Also advised pt would be ableto d/c bladder medication. Pt would like to [...] a second opinion. I did explain our typical'no switching' office policy. Pt acknowledges but states since he was seeing DLS for a decade and only saw PRW once, he's wondering if they'll make an exception. Pt reports if not, he plans to transfer care elsewhere. -discuss w PRW/KML and advise pt. Ordered: E&M of Est. Patient Moderate 30-39 Min 59216 Urnls Dip Stick Auto w/o Microscopy POC 30143 2. Incomplete bladder emptying (R39.14: Feeling of incomplete bladder emptying) PVR (cc): 12/27/21 - 94 05/30/22 - 225 (after botox) 08/31/22 - 56 12/14/23 - (random scan) *no scan at visit today-no bladder scanner IO* Ordered: E&M of Est. Patient Moderate 30-39 Min 78293 Urnls Dip Stick Auto w/o Microscopy POC 39382 3. BPH with urinary obstruction (N40.1: Benign prostatic hyperplasia with lower urinary tract symptoms) S/P TURP 04/28/20 by DLS S/p Cysto w/ UD 12/05/21 and 12/02/20 by NIKOLAS. IPSS 28 (severe sxs). Not currently taking any BPH medications. UA today shows trace-intact blood, negative for nitrites and leuks. see #1. Ordered: E&M of Est. Patient Moderate 30-39 Min 35635 Urnls Dip Stick Auto w/o Microscopy POC 87131 4. ED (erectile dysfunction) (N52.9: Male erectile [...] it a few wee (more content not included)...[facility] CenterComment on above:Result Comment: Electronically Signed By: ALANIS WOOD PA-C\.br\Date and Time Signed: 06/12/2411:06 EDT\.br\Electronically Co-Signed By: Radha Ohara\.br\Date and Time Co-Signed: 06/12/24 10:32 EDTCholesterol in LDL Calc [Mass/Vol]on 77-57-2539Phoscwvdybm in LDL [Mass/Vol]59.0 mg/dLDoctors HospitalComment on above:<100 mg/dl TUOTYHY316-488 mg/dl NEAR OR ABOVE VZERPIN786- 159 mg/dl BORDERLINE VKOB610-613 mg/dl HIGH>190 mg/dl VERY HIGHCholesterol in VLDL Calc [Mass/Vol]on 20-01-9531Gpliclkeurq in VLDL [Mass/Vol]11.4 mg/dL Doctors HospitalEstimated glomerular filtration rate (GFR) non- Americanon 95-23-2874XWX/1.73 sq M.predicted among non-blacks MDRD (S/P/Bld) [Vol rate/Area]mL/min/{1.73_m2}>=60[facility] Globulin Calc (S) [Mass/Vol]on 47-72-9589Xfzwzovh (S) [Mass/Vol]3.4 g/dL Doctors HospitalLaboratory - Chemistry and Chemistry - challengeon 01-23-6275Zvnehvt [Mass/Vol]3.8 g/dL3.4-5.0Doctors HospitalALP [Catalytic activity/Vol]89 U/H72-072UkfecliawDoctors HospitalALT [Catalytic activity/Vol]24 U/N90-61HalmpyoxuDoctors Hospital AST [Catalytic activity/Vol]14 U/HJlk69-18HngxwylehDoctors Hospital Bilirubin [Mass/Vol]0.9 mg/dL0.2-1.0Doctors HospitalCalcium [Mass/Vol]9.5 mg/dL8.5-10.1FUniversity Hospitals Parma Medical CenterChloride [Moles/Vol] 99 mmol/P60-559KubakdyjaDoctors HospitalCholesterol [Mass/Vol]138 mg/dL <=200Doctors HospitalCholesterol in HDL [Mass/Vol]68 mg/dLHigh 40-60Doctors HospitalComment on above:> or =60 mg/dl - LOW CARDIOVASCULAR RISK<40 mg/dl - HIGH CARDIOVASCULAR RISKCO2 [Moles/Vol]27.8 mmol/L21.0-32.0Doctors HospitalCreatinine [Mass/Vol]0.82 mg/dL 0.70-1.30Doctors HospitalGFR/1.73 sq M.predicted MDRD (S/P/Bld) [Vol rate/Area]mL/min/{1.73_m2}>=60Doctors HospitalGlucose [Mass/Vol]109 mg/fDQkxe16-099LzquhcfznDoctors HospitalPotassium [Moles/Vol]3.8 mmol/L3.5-5.1FUniversity Hospitals Parma Medical CenterProtein [Mass/Vol] 7.2 g/dL6.4-8.2FMercy Health St. Rita's Medical Centerodium [Moles/Vol]137 mmol/L 136-145Doctors HospitalTriglyceride [Mass/Vol]57 mg/dL<=150 Doctors HospitalUrea nitrogen [Mass/Vol]18.0 mg/dL7.0-18.0 Doctors HospitalUrea nitrogen/Creatinine [Mass ratio]22.0 mg/mg [facility] Centererum or plasma albumin/globulin mass ratioon 17-69-9067Gofkgvx/Globulin [Mass ratio]1.1 {ratio}[facility] Centererum or plasma anion gap determinationon 27-13-9944Ttjec gap [Moles/Vol] 14.0 mmol/LFMercy Health St. Rita's Medical Centererum or plasma total cholesterol/high density lipoprotein (HDL) cholesterol mass seema 04-29-2024 Cholesterol.total/Cholesterol in HDL [Mass ratio]2.0 {ratio}Doctors HospitalComment on above:3.3 - 4.4 LOW RISK4.4 - 7.1 AVERAGE RISK7.1 - 11.0 MODERATE RISK>11.0 HIGH RISKConsent for Treatmenton 15-44-6464Vocfthr for [id number]#1.00Aultman HospitalConsultation Noteon 08-36-9990Gavacwkjxrdu NotePatient: EDVIN ROLAND Age: 78 years Sex: Male [...] Oral, BID, X 30 day(s), # 60 cap(s),Refills(s) 1, Pharmacy: [facility]/pharmacy #[id number], 193, cm, 01/25/24 13:38:00 EDT, Height/Length Dosing, 102.4, kg, 01/25/24 13:38:00 EDT, Weight Dosing Viagra 50 mg Tab: See Instructions, 1-2 tab(s) po 1 hr before sexual acitivity. do not exceed 2 tabs in 24 hrs., # 15 tab(s), Refills(s) 3, Pharmacy: [facility]/pharmacy #[id number], 193, cm, 08/31/22 9:11:00 EDT, Height/Length Dosing, 114.5, kg, 08/31/22 9:11:00 EDT, Weight Dosing... amitriptyline 10 mg Tab: 10 mg = 1 tab(s), Oral, Once a day (at bedtime), X 30 day(s), # 30 tab(s),Refills(s) 1, Pharmacy: [facility]/pharmacy #[id number], 193, cm, 03/14/24 9:55:00 EDT, Height/Length Dosing, 104.5, kg, 03/14/24 9:55:00 EDT, Weight Dosing pregabalin 25 mg Cap: 25 mg = 1 cap(s), Oral, BID, # 60 cap(s), Refills(s) 2, Pharmacy: [facility]/pharmacy #[id number], 193, cm, 11/09/23 11:29:00 EST, [...] list: All Problems Hypercholesterolemia / SNOMED CT 28197726 / Confirmed Hernia, inguinal, right / SNOMED CT 625132070 / Confirmed BPH with urinary obstruction / SNOMED CT 1555803107 / Confirmed Elevated PSA / SNOMED CT 9697368887 / Confirmed Impotence / SNOMED CT 7455206198 / Confirmed Urinary frequency / SNOMED CT 207399166 / Confirmed Nocturia / SNOMED CT 140098427 / Confirmed Weak urinary stream / SNOMED CT 628527208 / Confirmed Gross hematuria / SNOMED CT 302240772 / Confirmed Anticoagulated / SNOMED CT 988881313 / Confirmed Urge incontinence / SNOMED CT 207962430 / Confirmed Chronic prostatitis / SNOMED CT 34041882 / Confirmed Dysuria / SNOMED CT 86384126 / Confirmed Urinary retention / SNOMED CT 093838545 / Confirmed BMI 31.0-31.9,adult / SNOMED CT 082491984 / Confirmed Incomplete bladder emptying / SNOMED CT 823796086 / Confirmed Post-void dribbling / SNOMED CT 984959400 / Confirmed Incontinence without sensory awareness / SNOMED CT 5705118793 / Confirmed At risk for falls / SNOMED CT 413037269 / Possible ED (erectile dysfunction) / SNOMED CT 9297521143 / Confirmed Leaking of urine / SNOMED CT 3070986643 / Confirmed Urinary incontinence / SNOMED CT 4890884858 / Confirmed Prostate cancer screening / SNOMED CT 633896818 / Confirmed Resolved: Hypertension / SNOMED CT 8447957218 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 5/5 strength Integumentary: Warm, Dry, [place]. Neurologic: Alert, Oriented. Psy (more content not included)...[facility] CenterComment on above:Result Comment: Electronically Signed By: Stephenie Barrios PA-C\.br\Date and Time Signed: 03/14/24 10:17 EDTOffice/Clinic Note-Physicianon 05-10-2024 Office/Clinic Note-[id number]#1.00TIFF [facility] CenterPatient Correspondenceon 75-46-9645Qnzuvfx [id number]#1.00TIFNormUniversity Hospitals TriPoint Medical CenterPatient Correspondence [id number]#1.00TIFNormUniversity Hospitals TriPoint Medical CenterPatient History Officeon 20-05-7905Llgkkfu History Office [id number]#1.00TIFOhioHealth Dublin Methodist HospitalConsent for Treatmenton 49-93-0683Ttdukxu for Treatment [id number]#1.00Aultman HospitalConsultation Noteon 33-18-3218Sngqhkkhqnxb NotePatient: EDVIN ROLAND Age: 78 years Sex: Male [...] Oral, BID, X 30 day(s), # 60 cap(s),Refills(s) 1, [id number], 193, cm, 01/25/24 13:38:00 EDT, Height/Length Dosing, 102.4, kg, 01/25/24 13:38:00 EDT, Weight Dosing Viagra 50 mg Tab: See Instructions, 1-2 tab(s) po 1 hr before sexual acitivity. do not exceed 2 tabs in 24 hrs., # 15 tab(s), Refills(s) 3, Pharmacy: [facility]/pharmacy #[id number], 193, cm, 08/31/22 9:11:00 EDT, Height/Length Dosing, 114.5, kg, 08/31/22 9:11:00 EDT, Weight Dosing... pregabalin 25 mg Cap: 25 mg = 1 cap(s), Oral, BID, # 60 cap(s), Refills(s) 2, [id number], 193, cm, 11/09/23 11:29:00 EST, Height/Length [...] list: All Problems Hypercholesterolemia / SNOMED CT 15536379 / Confirmed Hernia, inguinal, right / SNOMED CT 604358047 / Confirmed BPH with urinary obstruction / SNOMED CT 4760945069 / Confirmed Elevated PSA / SNOMED CT 6592144606 / Confirmed Impotence / SNOMED CT 4329000679 / Confirmed Urinary frequency / SNOMED CT 734078964 / Confirmed Nocturia / SNOMED CT 437469166 / Confirmed Weak urinary stream / SNOMED CT 059121427 / Confirmed Gross hematuria / SNOMED CT 507284909 / Confirmed Anticoagulated / SNOMED CT 304985957 / Confirmed Urge incontinence / SNOMED CT 803922898 / Confirmed Chronic prostatitis / SNOMED CT 49789971 / Confirmed Dysuria / SNOMED CT 75035659 / Confirmed Urinary retention / SNOMED CT 421863465 / Confirmed BMI 31.0-31.9,adult / SNOMED CT 096684182 / Confirmed Incomplete bladder emptying / SNOMED CT 690363108 / Confirmed Post-void dribbling / SNOMED CT 285730535 / Confirmed Incontinence without sensory awareness / SNOMED CT 6399072761 / Confirmed At risk for falls / SNOMED CT 654225141 / Possible ED (erectile dysfunction) / SNOMED CT 0727496706 / Confirmed Leaking of urine / SNOMED CT 1557493211 / Confirmed Urinary incontinence / SNOMED CT 6238663854 / Confirmed Prostate cancer screening / SNOMED CT 185324859 / Confirmed Resolved: Hypertension / SNOMED CT 0912600678 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 5/5 stre (more content not included)...[facility] CenterComment on above:Result Comment: Electronically Signed By: Stephenie Barrios PA-C\.br\Date and Time Signed: 01/25/24 13:48 EDTOffice/Clinic Note-Physician on 81-15-9011Ftflwf/Clinic Note-Physician [id number]#1.00[facility] HospitalPatient Correspondenceon 36-29-8455Rzsghij Correspondence [id number]#1.00[facility] HospitalPatient [id number]#1.00TIFF [facility] CenterPatient Correspondence [id number]#1.00TIFOhioHealth Dublin Methodist HospitalPatient History Officeon 03-42-8004Mrpiomu History Office [id number]#1.00TIFOhioHealth Dublin Methodist HospitalConsent for Procedure/Surgeryon 96-42-5166Vxbhugn for Procedure/Surgery [id number]#1.00TIFOhioHealth Dublin Methodist HospitalConsent for Treatmenton 16-71-5848Thjounz for Treatment [id number]#1.00TIFOhioHealth Dublin Methodist HospitalDischarge Instructionson 88-18-7520Edimpeewq Instructions [id number]#1.00TIFOhioHealth Dublin Methodist HospitalIntraOperative Documentson 77-27-3818CxfwyPbuljkqnh Documents [id number]#1.00TIFOhioHealth Dublin Methodist HospitalMain OR Intraoperative Recordon 31-26-4103Uttd OR Intraoperative Record IntraOp Document Type FTPM Summary Primary Physician: Bert Huang DO Finalized Date/Time: 01/09/24 11:31:11 Pt. Name: EDVIN ROLAND [place]/Sex: 1945 Male Med Rec #: [id number] Physician: Bert Huang DO Financial #: [id number] Pt. Type: P Room/Bed: / Admit/Disch: 01/09/24 [...] Tomasa Davidson Role Performed Surgeon - Primary Boat Engines Installer - Primary Scrub - Primary Time In 01/09/24 11:25:00 01/09/24 11:25:00 01/09/24 11:25:00 Time Out 01/09/24 11:31:00 01/09/24 11:31:00 01/09/24 11:31:00 Procedure SACROILIAC JOINT SACROILIAC JOINT SACROILIAC JOINT INJECTION(Bilateral) INJECTION(Bilateral) INJECTION(Bilateral) Comments Last Modified By: Gerry JENNINGS, Savannah Garrett RN, Savannah Tsai RN 01/09/24 11:31:02 01/09/24 11:31:02 01/09/24 11:31:02 Entry 4 Case Attendee Scott Craig Role Performed Talent Development Consultant Time In 01/09/24 11:25:00 Time Out 01/09/24 [...] and tissue Entry 1 Skin Integrity Intact, [place], Warm, and Skin Abnormality No Dry Outcomes [...] RN Outcomes Met? Y (more content not included)...[facility] Main OR Preoperative Recordon 88-82-1133Bgbk OR Preoperative RecordHolding Area Document Type FTPM Summary Primary Physician: Bert Huang DO Finalized Date/Time: 01/09/24 11:01:07 Pt. Name: EDVIN ROLAND/Sex: 1945 Male Med Rec #: [id number] Physician: Bert Huang DO Financial #: [id number] Pt. Type: P Room/Bed: / Admit/Disch: 01/09/24 [...] or her perioperative plan of care The patient'sright to privacy is maintained Surgery Checklist FTPM [...] Signatures Signed By: Anupama Huggins RN 01/09/24 11:01NoDoctors HospitalAutomated epithelial cells count in urine sediment (number/area)on 14-97-9836Rrasomxfxb cells Auto (Urine sed) [#/Area]FEW #/LPFNONE/RAREDoctors HospitalAutomated leukocytes count in urine sediment (number/area)on 77-81-8798PVB Auto (Urine sed) [#/Area]NONE SEEN #/HPF0-2FUniversity Hospitals Parma Medical Center Automated urine specific gravity by refractometryon 06-36-5191Rcnskrzp gravity Refractometry automated (U) [Rel density]1.0201.005-1.025Doctors HospitalBasophils Auto (Bld) [#/Vol]on 35-04-2111Pswtlbsyj (Bld) [#/Vol] 0.0 10 3/uL0.0-0.1FUniversity Hospitals Parma Medical CenterBasophils/100 WBC Auto (Bld) on 41-21-6892Xvrcntjut/100 WBC (Bld)0.4 %0.2-2.0Doctors HospitalBilirubin Auto test strip (U) [Mass/Vol]on 53-06-7001Mvumkxzbt (U) [Mass/Vol]NegativeNEGATIVEFirelands Regional Medical CenterColor Auto (U)on 43-15-8753Vyabc (U)YELLOWYELLOWDoctors HospitalEosinophils/100 WBC Auto (Bld)on 92-82-2606Diixcjcwlhj/100 WBC (Bld)0.9 %0.9-7.0Doctors HospitalErythrocyte distribution width Auto (RBC) [Ratio]on 51-37-3404Unbgkajylki distribution width (RBC) [Ratio]13.3 %11.0-15.0Doctors HospitalEstimated glomerular filtration rate (GFR) non- Americanon 80-19-4922ERZ/1.73 sq M.predicted among non-blacks MDRD (S/P/Bld) [Vol rate/Area]mL/min/{1.73_m2}>=60Doctors HospitalHematocrit Auto (Bld) [Volume fraction]on 73-85-9789Undybxicnw (Bld) [Volume fraction]45.1 %42.0-54.0Doctors HospitalHemoglobin [Mass/volume] in Bloodon 82-64-1011Ktukuoshce (Bld) [Mass/Vol]15.3 g/dL14.0-18.0Doctors HospitalKetones Auto test strip (U) [Mass/Vol]on 83-22-5212Mxdkiwl (U) [Mass/Vol]NegativeNEGATIVEDoctors HospitalLaboratory - Chemistry and Chemistry - challengeon 13-77-4727Uukqori [Mass/Vol]9.1 mg/dL 8.5-10.1FUniversity Hospitals Parma Medical CenterChloride [Moles/Vol]102 mmol/L98-107 Doctors HospitalCO2 [Moles/Vol]25.5 mmol/L21.0-32.0Doctors HospitalCreatinine [Mass/Vol]0.73 mg/dL0.70-1.30Doctors HospitalGFR/1.73 sq M.predicted MDRD (S/P/Bld) [Vol rate/Area] mL/min/{1.73_m2}>=60Doctors HospitalGlucose [Mass/Vol]113 mg/dL 74-106Doctors HospitalPotassium [Moles/Vol]3.8 mmol/L3.5-5.1 [facility] Centerodium [Moles/Vol]138 mmol/R413-363PeximruykDoctors HospitalUrea nitrogen [Mass/Vol]13.0 mg/dL7.0-18.0Doctors HospitalUrea nitrogen/Creatinine [Mass ratio]17.8 mg/mgDoctors HospitalLaboratory - Hematology and Cell countson 12-24-2023 Immature granulocytes/100 WBC (Bld)0.6 %0.0-0.5FUniversity Hospitals Parma Medical Center Leukocytes [#/volume] corrected for nucleated erythrocytes in Blood by Automated counon 65-84-3591CFO corrected for nucl RBC Auto (Bld) [#/Vol]9.5 10 3/uL 4.0-11.0Doctors HospitalLymphocytes Auto (Bld) [#/Vol]on 96-51-6888Wfcryeslsby (Bld) [#/Vol]1.1 10 3/uL1.2-3.8Doctors HospitalLymphocytes/100 WBC Auto (Bld)on 35-35-6478Sulegzuuwjb/100 WBC (Bld)11.5 % 20.5-60.0[facility] CenterH Auto (RBC) [Entitic mass]on 65-64-4915NGS (RBC) [Entitic mass]31.2 pg25.9-34.0Doctors HospitalMCHC Auto (RBC) [Mass/Vol]on 44-44-8290BRIS (RBC) [Mass/Vol]33.9 g/dL 29.9-35.2FUniversity Hospitals Parma Medical CenterMCV Auto (RBC) [Entitic vol]on 34-44-2576OUT (RBC) [Entitic vol]92.0 fL80.0-94.0Doctors HospitalMonocytes Auto (Bld) [#/Vol]on 46-09-2294Zcrjdgqgi (Bld) [#/Vol]0.7 10 3/uL0.3-0.8Doctors HospitalMonocytes/100 WBC Auto (Bld)on 30-09-4220Gopwvdxtx/100 WBC (Bld)7.7 %1.7-12.0[facility] Mucus LM Ql (Urine sed)on 23-85-3921Czkpx Ql (Urine sed)SMALLNONE SEENDoctors HospitalNeutrophils Auto (Bld) [#/Vol]on 64-09-9348Hfanvshgfci (Bld) [#/Vol]7.5 10 3/uL1.4-6.5FUniversity Hospitals Parma Medical CenterNeutrophils/100 WBC Auto (Bld)on 41-09-4830Kdihpxqsaxw/100 WBC (Bld)78.9 %43.0-75.0Doctors HospitalNo Panel Informationon 99-39-1735Iezytnrkjjr # (Auto)0.1 10 3/uL0.0-0.7FUniversity Hospitals Parma Medical CenterImmature Granulocyte # (Auto)0.06 10 3/uL0.00-0.03Doctors HospitalPlatelet mean volume Auto (Bld) [Entitic vol]on 32-71-4239Aergdulo mean volume (Bld) [Entitic vol]10.7 fL 9.5-13.5FUniversity Hospitals Parma Medical CenterPlatelets Auto (Bld) [#/Vol]on 41-38-7160Waohgvaem (Bld) [#/Vol]197 10 3/xV368-997AyubcqzmfDoctors HospitalProtein Auto test strip (U) [Mass/Vol]on 96-17-4354Ofbyzyt (U) [Mass/Vol] NegativeNEG/TRACEDoctors HospitalRBC Auto (Bld) [#/Vol]on 58-73-4360RAC (Bld) [#/Vol]4.90 10 6/uL4.70-6.10[facility] Medical Centererum or plasma anion gap determinationon 74-13-9829Lfjyu gap [Moles/Vol] 14.3 mmol/LFMercy Health St. Rita's Medical Centerpecific gravity Auto test strip (U) [Rel density]on 16-19-6311Tvxjtjig gravity (U) [Rel density]CLEARCLEARFUniversity Hospitals Parma Medical CenterUrine bacteria detection by automated methodon 12-24-2023 Bacteria Auto Ql (U)NONE SEEN #/HPFNONE [facility] Urine glucose measurement by test strip (mass/volume)on 03-32-4140Rnkjneu Test strip (U) [Mass/Vol]NegativeNEGGlenbeigh HospitalUrine hemoglobin detection by automated test stripon 99-33-3592Brbbwflljn Auto test strip Ql (U)NegativeNEGGlenbeigh HospitalUrine nitrite detection by automated test stripon 86-20-5821Wkthhrx Auto test strip Ql (U) NegativeNEGGlenbeigh HospitalUrine sediment leukocyte count by microscopy (number/high power field)on 85-42-2223RDJ LM.HPF (Urine sed) [#/Area]NONE SEEN #/HPFNONE [facility] HospitalUrobilinogen Auto test strip (U) [Mass/Vol]on 95-28-7113Anrtywboxtzn Qn (U)0.2 {Kathia'U}/dL 0.2-1.0Doctors HospitalpH Auto test strip (U)on 73-33-8311oY (U)6.5 [pH]5.0-9.0Doctors HospitalPatient Correspondenceon 19-23-2472Swpklgq Correspondence [id number]#1.00TIFOhioHealth Dublin Methodist HospitalInsurance Correspondence Officeon 98-43-5368Xvajhjaoy Correspondence [id number]#2.00TIFOhioHealth Dublin Methodist HospitalPatient Educationon 43-46-9166Jgpqxxm EducationUrology Urinary Incontinence Urinary incontinence refers to a [...] stimulation). ? For women, using a medical terminologist to prevent urine leaks. This is a [...] skin from urine. ? (more content not included)...NormalLutheran HospitalUrology Office/Clinic Noteon 49-34-0507Brrejsb Office/Clinic NoteChief Complaint Discuss Repeat Botox HPI Staff 11 [...] and would be more suitable for ADLs. Alsoadvised pt would be able to d/c bladder [...] Only if needed [facility] [address] [place] [address] [phone] Additional Instructions: Patient Education Urinary Incontinence Lina Rollins, personally scribed for Dr. Xavier on 12/14/2023 11:01:00. . Documentation recorded by the scribeLina, accurately reflects the services(s) I performed and [...] using fluoroscopic guidance (05/01/ (more content not included)...[facility] Comment on above:Result Comment: Electronically Signed By: Homero XAVIER MD\.br\Date and Time Signed: 12/14/23 11:03 EST\.br\Electronically Co-Signed By: Lina Perkins\.br\Date and Time Co-Signed: 12/14/23 11:01 ESTConsent for Treatmenton 70-82-4982Szhkmst for Treatment [id number]#1.00TIFFNoDoctors HospitalConsultation Noteon 59-07-8841Upbiivkbjmqv NotePatient: EDVIN ROLAND Age: 78 years Sex: Male [...] a stabbing type discomfort. It affects his ambulatorystatus. Affects his quality life. Affects his activities [...] day(s), # 30 tab(s), Refills(s) 6, [id number] 193, cm, 05/29/23 8:59:00 EDT, Height/Length Dosing, 108.9, kg, 03/19/23 8:54:00 EDT, Weight Dosing Viagra 50 mg Tab: See Instructions, 1-2 tab(s) po 1 hr before sexual acitivity. do not exceed 2 tabs in 24 hrs., # 15 tab(s), Refills(s) 3, [id number], 193, cm, 08/31/22 9:11:00 EDT, Height/Length Dosing, 114.5, kg, 08/31/22 9:11:00 EDT, Weight Dosing... pregabalin 25 mg Cap: 25 mg = 1 cap(s), Oral, BID, # 60 cap(s), Refills(s) 2, [id number], 193, cm, 11/09/23 11:29:00 EST, Height/Length [...] list: All Problems Hypercholesterolemia / SNOMED CT 97972429 / Confirmed Hernia, inguinal, right / SNOMED CT 825076928 / Confirmed BPH with urinary obstruction / SNOMED CT 1519593518 / Confirmed Elevated PSA / SNOMED CT 8741890482 / Confirmed Impotence / SNOMED CT 2082391640 / Confirmed Urinary frequency / SNOMED CT 256071266 / Confirmed Nocturia / SNOMED CT 867123585 / Confirmed Weak urinary stream / SNOMED CT 357130494 / Confirmed Gross hematuria / SNOMED CT 663190876 / Confirmed Anticoagulated / SNOMED CT 063653168 / Confirmed Urge incontinence / SNOMED CT 579764311 / Confirmed Chronic prostatitis / SNOMED CT 10246922 / Confirmed Dysuria / SNOMED CT 43922066 / Confirmed Urinary retention / SNOMED CT 684922534 / Confirmed BMI 31.0-31.9,adult / SNOMED CT 145588882 / Confirmed Incomplete bladder emptying / SNOMED CT 071245511 / Confirmed Post-void dribbling / SNOMED CT 205621818 / Confirmed Incontinence without sensory awareness / SNOMED CT 4322958002 / Confirmed At risk for falls / SNOMED CT 649480826 / Possible ED (erectile dysfunction) / SNOMED CT 8196284371 / Confirmed Leaking of urine / SNOMED CT 3274107979 / Confirmed Urinary incontinence / SNOMED CT 1223284793 / Confirmed Prostate cancer screening / SNOMED CT 324701652 / Confirmed Resolved: Hypertension / SNOMED CT 7623968707 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 [facility] CenterComment on above:Result Comment: Electronically Signed By: Stephenie Barrios PA-C\.br\Date and Time Signed: 12/10/23 12:53 EST\.br\Electronically Co-Signed By: Bert Huang DO\.br\Date and Time Co- Signed: 12/11/23 09:21 ESTOffice/Clinic Note-Physicianon 44-87-5922Hywndq/Clinic Note-[id number]#1.00[facility] HospitalPatient Correspondenceon 08-11-8946Tstagxv Correspondence [id number]#1.00[facility] HospitalPatient [id number]#1.00TIFF [facility] CenterPatient History Officeon 16-32-6927Rjqgczc History [id number]#1.00[facility] HospitalConsent for Treatmenton 95-61-8246Poehbzu for Treatment [id number]#1.00[facility] HospitalConsultation Noteon 69-70-2424Ipwihrrdpvky NotePatient: EDVNI ROLAND Age: 78 years Sex: Male : [...] gets up in the morning. Throughout the dayit does better at a 3/10. He states that it is the same as before. He is discouraged that the RFA did not help. He states that he needs something to help with the pain. He wonders about medical marijuana. Upon review of previous medications it looks as though we had him on Lyrica a few months ago but he failedto call for a refill so he is [...] # 30 tab(s), Refills(s) 6, Pharmacy: [facility]/pharmacy #[id number], 193, cm, 05/29/23 8:59:00 EDT, Height/Length Dosing, 108.9, kg, 03/19/23 8:54:00 EDT, Weight Dosing Viagra 50 mg Tab: See Instructions, 1-2 tab(s) po 1 hr before sexual acitivity. do not exceed 2 tabs in 24 hrs., # 15 tab(s), Refills(s) 3, Pharmacy: [facility]/pharmacy #[id number], 193, cm, 08/31/22 9:11:00 EDT, Height/Length Dosing, 114.5, kg, 08/31/22 9:11:00 EDT, Weight Dosing... pregabalin 25 mg Cap: 25 mg = 1 cap(s), Oral, BID, # 60 cap(s), Refills(s) 2, Pharmacy: [facility]/pharmacy #[id number], 193, cm, 11/09/23 11:29:00 EST, [...] list: All Problems Hypercholesterolemia / SNOMED CT 66183695 / Confirmed Hernia, inguinal, right / SNOMED CT 870124451 / Confirmed BPH with urinary obstruction / SNOMED CT 9414457206 / Confirmed Elevated PSA / SNOMED CT 1529673828 / Confirmed Impotence / SNOMED CT 7876458738 / Confirmed Urinary frequency / SNOMED CT 427475184 / Confirmed Nocturia / SNOMED CT 672967428 / Confirmed Weak urinary stream / SNOMED CT 028041310 / Confirmed Gross hematuria / SNOMED CT 979322821 / Confirmed Anticoagulated / SNOMED CT 236339898 / Confirmed Urge incontinence / SNOMED CT 871781476 / Confirmed Chronic prostatitis / SNOMED CT 12980203 / Confirmed Dysuria / SNOMED CT 09842547 / Confirmed Urinary retention / SNOMED CT 383909044 / Confirmed BMI 31.0-31.9,adult / SNOMED CT 264958508 / Confirmed Incomplete bladder emptying / SNOMED CT 676969973 / Confirmed Post-void dribbling / SNOMED CT 662919950 / Confirmed Incontinence without sensory awareness / SNOMED CT 2675103581 / Confirmed At risk for falls / SNOMED CT 677116451 / Possible ED (erectile dysfunction) / SNOMED CT 0729137421 / Confirmed Leaking of urine / SNOMED CT 5775771403 / Confirmed Urinary incontinence / SNOMED CT 9009862063 / Confirmed Prostate cancer screening / SNOMED CT 067098079 / Confirmed Resolved: Hypertension / SNOMED CT 8994715993 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 Injection sites well-healed Neurologic: Alert, Oriented. Psychiatric: Cooperative, Appropriate mood & affect. Impression and Plan Patient is a 78-year-old male with a past medical history significant for postlaminectomy syndrome,chronic pain, and lumbar spondylosis (more content not included)...[facility] CenterComment on above:Result Comment: Electronically Signed By: Stephenie Barrios PA-C\.br\Date and Time Signed: 11/09/23 11:45 ESTLegal Correspondence Officeon 92-69-6533Sxfvn Correspondence [id number]#1.00TIFOhioHealth Dublin Methodist HospitalOffice/Clinic Note-Physicianon 78-99-8816Qhqjia/Clinic Note-[id number]#1.00TIFFCommunity Regional Medical CenterPatient Correspondenceon 96-16-1589Yownfvp Correspondence [id number]#1.00TIFOhioHealth Dublin Methodist HospitalPatient [id number]#1.00TIFF [facility] CenterPatient Correspondence [id number]#1.00TIFOhioHealth Dublin Methodist HospitalPatient Mtbvztk[id number]#1.00TIFF [facility] CenterPatient History Officeon 54-17-8403Kccqzph History [id number]#1.00TIFFNoDoctors HospitalConsent for Procedure/Surgeryon 41-45-7537Xehcatj for Procedure/[id number]#1.00TIFFNoDoctors HospitalConsent for Treatmenton 26-36-1930Xkmbvbv for Treatment [id number]#1.00[facility] HospitalDischarge Instructionson 07-30-1394Kdqbrnrrk Instructions [id number]#1.00[facility] HospitalIntraOperative Documentson 12-88-0348CmppzIudbenhju Documents [id number]#1.00[facility] HospitalMain OR Intraoperative Recordon 89-85-8898Tdwk OR Intraoperative Record IntraOp Document Type FTPM Summary Primary Physician: Bib Sanchez MD Finalized Date/Time: 10/08/23 08:08:45 Pt. Name: EDVIN ROLAND/Sex: 1945 Male Med Rec #: [id number] Physician: Bib Sanchez MD Financial #: [id number] Pt. Type: P Room/Bed: / Admit/Disch: 10/08/23 [...] Savannah Ceballos Role Performed Surgeon - Primary Boat Engines Installer - Primary Scrub - Primary Time In 10/08/23 07:54:00 10/08/23 07:54:00 10/08/23 07:54:00 Time Out 10/08/23 08:09:00 10/08/23 08:09:00 10/08/23 08:09:00 Procedure LUMBAR RADIO FREQUENCY LUMBAR RADIO FREQUENCY LUMBAR RADIO FREQUENCY ABLATION(Bilateral) ABLATION(Bilateral) ABLATION(Bilateral) Comments Last Modified By: Robin JENNINGS, Tomasa Kelly RN, Tomasa Alexander RN 10/08/23 08:08:31 10/08/23 08:08:31 10/08/23 08:08:31 Entry 4 Case Attendee Soni MCNULTY(R)Adry Role Performed Talent Development Consultant Time In 10/08/23 07:54:00 Time Out 10/08/23 [...] Antibiotic No Time Out Tomasa Kelly RN, Rome Garrett RN, Laura Roldan MD, Soni Bateman RT(R)Adry Time Out Complete 10/08/23 07:54:00 Outcomes Met? [...] and tissue Entry 1 Skin Integrity Intact, [place], Warm, and Skin Abnormality No Dry Outcomes [...] Checked Yes By Neto (more content not included)...[facility]Main [facility] Preoperative Recordon 51-42-9629Osrk OR Preoperative RecordHolding Area Document Type FTPM Summary Primary Physician: Bib Sanchez MD Finalized Date/Time: 10/08/23 07:19:53 Pt. Name: EDVIN ROLAND /Sex: 1945 Male Med Rec #: [id number] Physician: Bib Sanchez MD Financial #: [id number] Pt. Type: P Room/Bed: / Admit/Disch: 10/08/23 [...] or her perioperative plan of care The patient'sright to privacy is maintained Surgery Checklist FTPM [...] of bilateral cataract lens implants. Pain Comment: 8/10 lower back pain Operative Site Yes Marking: [...] Signatures Signed By: Sneha Beal RN 10/08/23 07:19NoDoctors HospitalOperative Report on 41-82-1509Pnntlixay ReportPatient: EDVIN ROLAND Age: 78 years Sex: Male : 1945 Associated Diagnoses: None Author: iBb Sanchez MD Procedure Procedure: Lumbar Facet Medial [...] procedure room and placed in the prone positionwith padding under the abdomen to reduce lumbar lordosis. Time out was performed. The back was prepped and draped in sterile fashion with Chloraprep. Skin and subcutaneous tissues were anesthetized with 6 mL of Lidocaine 2% through a 25G needle. 20G RFA 10mm active tip needles were then advanced under fluoroscopic guidance to the locations of the medial branch nerves to the L3/4and L4/5 facet joints on the right. Impedances [...] side with the identical technique and medications. [place] were removed and bandages applied. The patient [...] 10/08/2023 7:12 EST Respiratory Rate 15 br/min .[facility] CenterComment on above:Result Comment: Electronically Signed By: Laura WALTERS, Bib Yuen\Date and Time Signed: 10/08/23 08:08 ESTPatient Correspondenceon 60-81-1348Pbvoeau Correspondence [id number]#1.00TIFFNormUniversity Hospitals TriPoint Medical CenterInsurance Correspondence Officeon 95-61-8781Nwrvovjzd Correspondence [id number]#2.00TIFFNoDoctors HospitalConsent for Treatmenton 16-95-4359Kxiqjmf for Treatment [id number]#1.00TIFFCommunity Regional Medical CenterConsultation Noteon 71-30-1126Ynkkyqzpnbsg NotePatient: EDVIN ROLAND Age: 78 years Sex: Male [...] 8/10. Unfortunate, thus far all other reasonable co nservative treatments have failed so he is eager to get some long-term relief. Health Status Allergies: Allergic Reactions (Selected) Severity Not Documented Oxybutynin- Hallucinations. OxyCODONE- Visual hallucinations., Allergies (2) Active Reaction oxybutynin Hallucinations oxyCODONE Visual hallucinations Current medications: (Selected) Prescriptions Prescribed Vesicare 10 mg Tab: 10 mg = 1 tab(s), Oral, Daily, X 30 day(s), # 30 tab(s), Refills(s) 6, Pharmacy: [facility]/pharmacy #[id number], 193, cm, 05/29/23 8:59:00 EDT, Height/Length Dosing, 108.9, kg, 03/19/23 8:54:00 EDT, Weight Dosing Viagra 50 mg Tab: See Instructions, 1-2 tab(s) po 1 hr before sexual acitivity. do not exceed 2 tabs in 24 hrs., # 15 tab(s), Refills(s) 3, Pharmacy: [facility]/pharmacy #[id number], 193, cm, 08/31/22 9:11:00 EDT, [...] list: All Problems Hypercholesterolemia / SNOMED CT 93054586 / Confirmed Hernia, inguinal, right / SNOMED CT 159339202 / Confirmed BPH with urinary obstruction / SNOMED CT 8492961249 / Confirmed Elevated PSA / SNOMED CT 1017294209 / Confirmed Impotence / SNOMED CT 7343468711 / Confirmed Urinary frequency / SNOMED CT 404704081 / Confirmed Nocturia / SNOMED CT 416043175 / Confirmed Weak urinary stream / SNOMED CT 216670590 / Confirmed Gross hematuria / SNOMED CT 778618327 / Confirmed Anticoagulated / SNOMED CT 511161469 / Confirmed Urge incontinence / SNOMED CT 252693040 / Confirmed Chronic prostatitis / SNOMED CT 71861464 / Confirmed Dysuria / SNOMED CT 98447351 / Confirmed Urinary retention / SNOMED CT [id number] / Confirmed BMI 31.0-31.9,adult / SNOMED CT 493078030 / Confirmed Incomplete bladder emptying / SNOMED CT 270522041 / Confirmed Post-void dribbling / SNOMED CT 277188654 / Confirmed Incontinence without sensory awareness / SNOMED CT 9843910027 / Confirmed At risk for falls / SNOMED CT 017345416 / Possible ED (erectile dysfunction) / SNOMED CT 4696915160 / Confirmed Leaking of urine / SNOMED CT 0708588630 / Confirmed Urinary incontinence / SNOMED CT 9643860814 / Confirmed Prostate cancer screening / SNOMED CT 253152316 / Confirmed Resolved: Hypertension / SNOMED CT 2155428915 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 Injection site well-healed Neurologic: Alert, Oriented. Psychiatric: Cooperative, Appropriate mood & affect. Results Review Lumbar MRI report once again reviewed Impression and Plan Patient is a 77-year-old male with a past medical history significant cannot for lumbar spondylosis, postlaminectomy syndrome, and chronic low back pain. Patient underwent his second bilateral L3-4 and L4-5 facet med (more content not included)...[facility] CenterComment on above:Result Comment: Electronically Signed By: Stephenie Barrios PA-C\.br\Date and Time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 4.4 - 7.1 AVERAGE RISK 7.1 - 11.0 MODERATE RISK >11.0 HIGH RISKPerformed By: #### LIPID #### [facility] [address] [place] [address] Dr. Liban Edmondsonesterol [Mass/Vol]119 mg/dLNormal<=200[facility] Comment on above:Performed By: #### LIPID #### [facility] [address] [address] [address] Liban WhyteCholesterol in HDL [Mass/Vol]47 mg/fUMpujwp76-01WmqGlenbeigh HospitalComment on above:Performed By: #### LIPID #### [facility] [address] [address] [address] Liban WhyteCholesterol in LDL [Mass/Vol]62.0 mg/dLAdena Fayette Medical CenterComment on above:Performed By: #### LIPID #### [facility] [address] [address] [address] Liban WhyteCholesterol.total/Cholesterol in HDL [Mass ratio]2.5 {ratio} NormalGlenbeigh HospitalComment on above:Performed By: #### LIPID #### [facility] [address] [address] [address] Liban Baum NORMAL> or = 60 mg/dl - LOW CARDIOVASCULAR RISK <40 mg/dl - HIGH CARDIOVASCULAR RISKAdena Fayette Medical CenterComment on above:Performed By: #### LIPID #### [facility] [address] [address] [address] Liban WhyteLDL CALC NORMALSEE BELOWAdena Fayette Medical CenterComment on above:Result Comment: <100 mg/dl OPTIMAL 100 - 129 mg/dl NEAR OR ABOVE OPTIMAL 130 - 159 mg/dl BORDERLINE HIGH 160 - 189 mg/dl HIGH >190 mg/dl VERY HIGH Performed By: #### LIPID #### [facility] [address] [address] [address] Liban WhyteTriglyceride [Mass/Vol]50 mg/dLNormal<=150[facility] Comment on above:Performed By: #### LIPID #### [facility] [address] [address] [address] Liban SpencerLDL CALC10.0 mg/dLNoOur Lady of Mercy HospitalComment on above: Performed By: #### LIPID #### [facility] [address] [address] [address] Liban Tate Visit (Cardiology)on 57-80-5816Hyigyr-up visit Diagnoses/Problems Assessed Arteriosclerosis of coronary artery [...] Weight Tips; Status:Complete - Retrospective Authorization; Done: [id number] Patient Instructions Please bring all medicines, vitamins, [...] visit. Encouragement provided for more weight loss. Asessment/recommendations: 1?coronary artery disease status post angioplasty of [...] Complete CAPSTAKE 1 CAPSULE Daily Allergies Medication HYDROcodone-Acetaminophen TABS Allergy; Hallucinations;; Recorded By: Alanis Ku; [...] Recorded: 28Mar2022 01:43PM Heart Rate88, R Radial Pzbbaqiq359, RUE, Sitting Zjpdbznib70, RUE, Sitting Height6 ft 4 in Nybeps474 lb BMI Yjzbpiqyhb94.48 kg/m2 BSA Calculated2.37 Tobacco Useb) No PHQ-2 #1. Over the last 2 weeks have you felt down, depressed or hopeless? (If yes, answer PHQ-9 below)No PHQ-2 #2. Over the last 2 weeks have you felt little interest or pleasure in doing things? (If yes,answer PHQ-9 below)No Fall Screeningb) One or more [...] Connors MD; M (more content not included)... NormalUH TouchworksTobacco Screening.on 22-20-6210Vfrtn depression screening assessmentWomen & [facility]ants [facility] Heart-Door 250 DO Work Phone: Fall risk assessmentb) One or more falls in the last yearMP-[facility] Epic Playground-Dnevnik 250 DO Work Phone: Tobacco use status CPHSb) NoMP-[facility]- Dnevnik 250 DO Work Phone: CNOVon 54-77-8363IPNKAvpdhi Visit (NEURAV) ASUNCIONEDVIN John ([id number]) 1945 M Date Time Provider Department 04/19/21 [...] He had a second opinion with Dr. Quezada([facility]), felt that he did not need the [...] when he tried to get up the stitcher around, tripped over went ramp. He established with [...] loss of consciousness, he was brought to [facility] needing stitches. CT c- spine showed degenerative [...] as he can do more at the [facility] center. They are planning to go back to the [facility]. Current Outpatient Medications Medication Sig Dispense [...] with vision, hearing C (more content not included)...NormalAvita Health System Bucyrus HospitalLUAR SPINE 2 OR 3 VIEWSon 77-25-3505ZZRMTJ SPINE 2 OR 3 VIEWSSTUDY: LUMBAR SPINE 2 OR 3 VIEWS; ; 08/25/2020 8:28 am INDICATION: PAIN. COMPARISON: None. ACCESSION NUMBER(S): [id number] ORDERING CLINICIAN: Haseeb Arcos FINDINGS: No acute fracture dislocation. 5 lumbar vertebral bodies are identified. Status post the decompression laminectomy at L4 and L5 level. Moderate facet arthropathy at L4-L5 and L5-S1 resulting in dvjm-lz-unemjffu neural foraminal stenosis. The vertebral alignment is normal. The vertebral body heights are maintained. Mild decrease in intervertebral disc space at all levels. Nonspecific bowel gas pattern. Atherosclerotic calcifications of the abdominal aorta. IMPRESSION: Decompression laminectomy at L4 and L5 levels. Moderate facet arthropathy at L4-L5 and L5-S1 levels resulting in olyn-lb-pqbjjkox bilateral neural foraminal stenosis.NormalSt. Promise Hospital Of East Los AngelesLUMBAR SPINE 2 OR 3 VIEWSon 14-79-6828ZATEEO SPINE 2 OR 3 VIEWS STUDY: LUMBAR SPINE 2 OR 3 VIEWS;; 10/31/2019 10:43 am INDICATION: PAIN. COMPARISON: None. ACCESSION NUMBER(S): [id number] ORDERING CLINICIAN: Haseeb Arcos FINDINGS: No acute [...] 2. Severe facet arthropathy at L3-L4 through L5-S1.NormalSt. Promise Hospital Of East Los AngelesBasic Metabolic Panel Reflex Mgon 30-64-6152Qiyij gap13 mmol/L Normal7-13[facility] CenterCalcium8.5 mg/dLLow8.6-10.2MPikes Peak Regional HospitalChloride95 mmol/HAvd00-004EiogmSpanish Peaks Regional Health CenterCO225 mmol/BNjvkaa48-51AvupbSpanish Peaks Regional Health CenterCreatinine0.76 mg/dLNormal 0.70-1.20[facility] Health CentereGFR (black)mL/min/{1.73_m2}Normal>60[facility] CenterComment on above:Result Comment: >60 mL/min/1.73m2 EGFR, calc. for ages 18 and older using theMDRD formula (not corrected for weight), is valid for stablerenal function.eGFR (MDRD)mL/min/{1.73_m2}Normal>60[facility] CenterComment on above:Result Comment: >60 mL/min/1.73m2 EGFR, calc. for ages 18 and older using theMDRD formula (not corrected for weight), is valid for stablerenal function.Glucose mass dqrr526 mg/dLCritically psrw77-078 [facility] CenterPotassium molar conc3.7 mmol/LNormal3.5-5.1MSwedish Medical Centerodium133 mmol/TJyeijl075-367DutdwSpanish Peaks Regional Health CenterUrea vedovodg82 mg/dLNormal8-23[facility] CenterCBC With Platelet and Differentialon 66-40-9022Xwuapdaiu Auto #/vol (Bld)0.0 10*3/uL Normal0.0-0.2MPikes Peak Regional HospitalBasophils/100 WBC Auto (Bld)0.1 % [facility] HospitalEosinophils0.0 10*3/uLNormal0.0-0.7[facility] CenterEosinophils/100 leukocytes0.0 %[facility]. [facility] HospitalErythrocyte distribution width Auto Ratio (RBC)13.7 %Normal 11.5-14.5[facility] Health CenterErythrocytes (RBC)4.62 10*6/uLLow4.70-6.10 [facility] CenterHematocrit (HCT)42.3 %Fpujor93.0-52.0[facility] CenterHemoglobin mass conc (Bld)14.1 g/iFOuvthr92.0-18.0[facility] CenterLymphocytes0.8 10*3/uLLow1.0-4.8[facility] Lymphocytes/100 leukocytes4.8 %[facility]. [facility] HospitalMCH30.4 pg Vqdwhw34.0-31.3MPikes Peak Regional HospitalMCHC mass conc (RBC)33.2 %Normal 33.0-37.0[facility] CenterMCV91.6 wAYuqxhz35.0-100.0[facility] CenterMonocytes0.9 10*3/uLCritically high0.2-0.8[facility] CenterMonocytes/100 leukocytes5.4 %[facility] Szwdanrjehf66.6 10*3/uLCritically high1.4-6.5[facility] Neutrophils/100 lkiouldieg75.7 %[facility] HospitalPlatelets194 10*3/cKIevpct623-458WttpoSpanish Peaks Regional Health CenterWBC (Leukocytes)16.2 10*3/uL Critically high4.8-10.8[facility] CenterXR LUMBAR SPINE (2-3 VIEWS) on 76-55-6305XL LUMBAR SPINE (2-3 VIEWS)X-RAY: LUMBAR SPINE, 3 VIEWS:COMPARISONS: None available.CLINICAL HISTORY: [...] iliac arteries. SI joints and sacrum are unremarkable.IMPRESSION: STATUS POST POSTERIOR FUSION AT THE L4-S1 LEVEL.GOOD ALIGNMENT OF SPINE. NO FRACTURE.Interpreted by:NATALIA Bravoigned by:Nicky Snow MD6//18Final resultNormalSpanish Peaks Regional Health CenterBasic Metabolic Panel Reflex Mgon 70-08-2095Fmtyc gap14 mmol/LCritically high7-13[facility] CenterCalcium9.5 mg/dLNormal8.6-10.2MPikes Peak Regional Hospital Iphysvgh360 mmol/UNmfntx57-585XdzweSpanish Peaks Regional Health CenterCO225 mmol/LNormal 22-29[facility] CenterCreatinine0.85 mg/dLNormal0.70-1.20[facility] Health CentereGFR (black)mL/min/{1.73_m2}Normal>60[facility] CenterComment on above:Result Comment: >60 mL/min/1.73m2 EGFR, calc. for ages 18 and older using theMDRD formula (not corrected for weight), is valid for stablerenal function.eGFR (MDRD)mL/min/{1.73_m2}Normal>60[facility] CenterComment on above:Result Comment: >60 mL/min/1.73m2 EGFR, calc. for ages 18 and older using theMDRD formula (not corrected for weight), is valid for stablerenal function.Glucose mass cooq210 mg/dLCritically yprm02-546ThtwuSpanish Peaks Regional Health CenterPotassium molar conc3.9 mmol/LNormal3.5-5.1MSwedish Medical Centerodium139 mmol/PXfsyqe734-039UznaoSpanish Peaks Regional Health CenterUrea bhuoxris71 mg/dLNormal8-23[facility] CenterCBC With Platelet No Differentialon 29-05-2209Otebvpspfxp distribution width Auto Ratio (RBC)13.8 % Enikhz28.5-14.5[facility] Health CenterErythrocytes (RBC)5.00 10*6/uLNormal 4.70-6.10[facility] Health CenterHematocrit (HCT)46.0 %Yktotm73.0-52.0[facility] Health CenterHemoglobin mass conc (Bld)15.4 g/kHGhbspt72.0-18.0[facility] CenterMCH30.7 reMlohfo29.0-31.3MPikes Peak Regional Hospital MCHC mass conc (RBC)33.4 %Nqrwmz91.0-37.0[facility] CenterMCV92.0 fL Hepbgs42.0-100.0[facility] Health CenterPlatelets192 10*3/kAJigpxh979-775 [facility] CenterWBC (Leukocytes)10.0 10*3/uLNormal4.8-10.8[facility] Health CenterFLUORO FOR SURGICAL PROCEDURESon 96-06-7711KGEOOK FOR SURGICAL PROCEDURESFLUORO FOR SURGICAL PROCEDURES : 04/11/2018CLINICAL HISTORY: Lumbar Fusion .COMPARISON: Preoperative spine radiographs 04/10/2018.Intraoperative fluoroscopy was provided for Dr. Rocha's L4-L5-S1 pedicle screws/posterior lumbar fusion L5-S1 PLIF procedures.A total of 77.6 mGy of fluoroscopy was used, mvwm142 fluoroscopic stills and reconstructed images saved. No diagnostic images were obtained.Please see Dr. Rocha's surgical notes for completeness.Interpreted by:NATALIA Gomesigned by:Kirk Velez MD04/11/18Final resultNormalSt. Francis Hospitalurgical Specimenon 36-65-0675Bdktgslt SpecimenInvalid Interpretation CodeSpanish Peaks Regional Health CenterComment on above:Result Comment: [place] [id number] [phone] SURGICAL PATHOLOGY REPORTPatient Name: EDVIN ROLAND Accession No: [id number] Age Sex: 1945 Location: [address] [id number] No: [id number] Collected: 04/11/2018[facility] Rec No: [id number] Received: 04/12/2018Attend Phys: ANG AJ Completed: 04/16/2018Perform Phys: ANG YOOFINAL DIAGNOSIS:A. DISK-VERTEBRAL DISK MATERIAL WITH DEGENERATIVE CHANGES.B. SYNOVIAL CYST-CONSISTENT WITH SYNOVIAL CYST. ALIFA/ALIFACLINICAL INFORMATION:L4- 5 spondylosis, L5-S1 HNP/radiculopathy, synovial cyst.SPECIMEN:A. DiscB. Synovical CystGROSS DESCRIPTION:A. The specimen container is labeled with the patient's name anddesignated spine . In formalin are multiple irregular shaggy fragmentsof mcbride-pink, rubbery and firm tissue, measuring in aggregate 4 x 3.5 x 1cm. Wrapped and submitted entirely in three cassettes after b riefdecalcification.B. The specimen container is labeled with the patient's name anddesignated spine . In formalin are two irregular fragments of mcbride- gauthier,rubbery to firm tissue, measuring in aggregate 1.8 x 1.5 x 0.5 cm.Sectioned and submitted entirely, one cassette. ALDWA/SCDANCPT: [id number] X1 11429 A0TCODDCURTIS RIVERS M.D. 04/16/2018 Electronically signed out by Page 1 of 1Basic Metabolic Panelon 37-03-9125Bicfw gap15 mmol/LCritically high7-13[facility] CenterCalcium9.4 mg/dLNormal8.6-10.2MPikes Peak Regional HospitalChloride98 mmol/YRktkqr48-666PqebzSpanish Peaks Regional Health CenterCO228 mmol/HTaloyu90-79YoglpSpanish Peaks Regional Health CenterCreatinine0.70 mg/dLNormal0.70-1.20[facility] Health CentereGFR (black)mL/min/{1.73_m2}Normal>60[facility] CenterComment on above:Result Comment: >60 mL/min/1.73m2 EGFR, calc. for ages 18 and older using theMDRD formula (not corrected for weight), is valid for stablerenal function.eGFR (MDRD)mL/min/{1.73_m2}Normal>60[facility] Comment on above:Result Comment: >60 mL/min/1.73m2 EGFR, calc. for ages 18 and older using theMDRD formula (not corrected for weight), is valid for stablerenal function.Glucose mass gzmv628 mg/iMDacdaz29-586PhvdvSpanish Peaks Regional Health Center Potassium molar conc3.7 mmol/LNormal3.5-5.1MSwedish Medical Centerodium 141 mmol/UYmafyn785-752OikskSpanish Peaks Regional Health CenterUrea hzppdzyy93 mg/dLNormal 8-23[facility] CenterCBC With Platelet No Differentialon 04-10-2018 Erythrocyte distribution width Auto Ratio (RBC)14.2 %Tuvvqv45.5-14.5[facility] Health CenterErythrocytes (RBC)5.34 10*6/uLNormal4.70-6.10[facility] Health CenterHematocrit (HCT)49.2 %Hjpmtm81.0-52.0[facility] Health CenterHemoglobin mass conc (Bld)16.5 g/oRUcpsqk21.0-18.0[facility] CenterMCH30.9 lzTwwodj89.0-31.3MPikes Peak Regional HospitalMCHC mass conc (RBC)33.6 %Hxxykh49.0-37.0[facility] CenterMCV92.1 fLNormal 80.0-100.0[facility] Health CenterPlatelets206 10*3/wIGwxhqd939-989YbgbbSpanish Peaks Regional Health CenterWBC (Leukocytes)6.8 10*3/uLNormal4.8-10.8[facility] Health CenterCulture, MRSA Screenon 39-30-0212Dcgqhev, MRSA ScreenORDER#: [id number] ORDERED BY: DANIELLA EUCEDA: Nares Nose COLLECTED: 04/10/18 12:58ANTIBIOTICS AT JULI.: RECEIVED : 04/10/18 12:58Culture, MRSA Screen FINAL 04/11/18 11:22 No MRSA isolatedNoSt. Anthony HospitalProthrombin Timeon 69-56-3748XLT Coag RelTime (PPP)1.0 {INR}NormalSpanish Peaks Regional Health CenterComment on above:Result Comment: Recommended INR therapeutic ranges for oral anticoagulanttherapyProphylaxis/treatment of: INR Venous Thrombosis, Pulmonary Embolism 2.0-3Prevention of Systemic Embolism from: Atrial Fi brillation 2.0-3.0 Myocardial Infarction 2.0-3.0 Mechanical Prosthetics Heart Valves 2.5-3.5 Recurrent Systemic Embolism 2.5-3.5Guidelines for patients with coagulopathy, e.g. liver disease:Use the Protime resulted in seconds. Mild 12.9- 17.0 sec Moderate 17.1-22.6 sec Severe G.T. 22.6 secProthrombin time (PT) Coag time (PPP)10.7 sNormal9.6-12.3MPikes Peak Regional HospitalType and Screen Capture 3 scrn cellon 36-62-6842Nblsitzps (total)PATIENT: ASUNCION SABILLON LOC: [place] BILL# : [id number] : 1945 SEX: MORDEREDBY: KINSEY Underwood ORDERED : 04/10/2018 11:35 COLLECTED: 04/10/2018 13:00ORDER : [id number] RECEIVED : 04/10/2018 13:00 ---TEST NAME RESULT UNITS RANGES ABN FL STABORH Capture A POS FAntibody 3 Cell Scrn Captu NEG F------- Normal [facility] Health CenterUrinalysis, reflex to cultureon 28-86-7109Qealhegfi Ql (U)NegativeNormalNegativeSpanish Peaks Regional Health CenterUrine Reflexed to CultureNot IndicatedrmSt. Vincent General Hospital DistrictUrine, clarityClearNormal ClearSpanish Peaks Regional Health CenterUrine, colorYellowNormalStraw/YellSpanish Peaks Regional Health CenterUrine, glucose presenceNegativeNormalNegDenver Health Medical CenterUrine, hemoglobin presenceNegativeNormalNegDenver Health Medical CenterUrine, ketones presenceNegativeNormalNegDenver Health Medical CenterUrine, leukocyte esterase presenceNegativeNormalNegative [facility] CenterUrine, nitrite presenceNegativeNormalNegDenver Health Medical CenterUrine, pH5.5 [pH]Normal5.0-9.0[facility] Health CenterUrine, protein presenceNegativeNormalNegDenver Health Medical Center Urine, specific gravity1.119Fjlhak5.005-1.03[facility], urobilinogen0.2 {Kathia'U}/dLNormal< 2.0[facility] CenterXR SPINE ENTIRE (2-3 VIEWS)on 06-97-5315ZV SPINE ENTIRE (2-3 VIEWS)EXAMINATION: XR SPINE ENTIRE (8 views)CLINICAL HISTORY: SCOLIOSIS SURVEYCOMPARISONS: None available. FINDINGS: On AP imaging, Jae angle was measured from the superior endplate at T9, to the inferiorendplate of L3. A minimal scoliosis with convexity [...] LORDOSIS IDENTIFIED. Interpreted by:NATALIA Oliverigned by:Dorothy Scott MD6/6/18Final resultNoSt. Anthony Hospital Vital Signs Date TimeVital SignValuePerforming BigokzhvbUpzclyrx02-96-9868 10:-040Body lgyxpp183.04 cmBenjamin Ball DO Work Phone: [facility]10-27-2025 10:23-0400 Body mass index (BMI) [Ratio]28.8 kg/m2Vgcuajre Ball DO Work Phone: 1(419)[address] [place], [place] 6106410-27-2025 10:23-0400 Body .2 [degF]Dorothy Ball DO Work Phone: [phone] [place], [place] 6106410-27-2025 10:23-0400 Body abytap381.5 kgBenjamin Ball DO Work Phone: [phone])[address] [place], [place] 6106410-27-2025 10:23-0400 Diastolic blood ldaerdlw82 mm[Hg]Dorothy Ball DO Work Phone: 1(419)[address] [place], [place] 6106410-27-2025 10:23-0400 Heart rate72 /minBenjamin Ball DO Work Phone: [phone])[address] [place], [place] 6106410-27-2025 10:23-0400 SaO2% (BldA) [Mass fraction]97 %Dorothy Ball DO Work Phone: [phone])[address] [place], [place] 6106410-27-2025 10:23-0400 Systolic blood lvqrdhfo588 mm[Hg]Dorothy Ball DO Work Phone: 1(419)[address] [place], [place] 6106410-16-2025 09:41-0400 Body mkevya578.65 kgBenjamin Ball DO Work Phone: [phone])[address] [place], [place] 6106410-16-2025 09:41-0400 Diastolic blood mm[Hg]Dorothy Ball DO Work Phone: 1(419)[address] [place], [place] 6106410-16-2025 09:41-0400 Heart rate71 /minBenjamin Ball DO Work Phone: [phone])[address] [place], [place] 6106410-16-2025 09:41-0400 SaO2% (BldA) [Mass fraction]97 %Dorothy Ball DO Work Phone: 1(419)[address] [place], [place] 6106410-16-2025 09:41-0400 Systolic blood osrtzhda674 mm[Hg]Dorothy Ball DO Work Phone: 1(419)[address] [place], [place] 6106408-13-2025 09:27-0400 Body arltdl282 cmMarisol Connors MD Work Phone: [facility]08-13-2025 09:27-0400 Body mass index (BMI) [Ratio]28.12 kg/e7KwhshoMarisol Connors MD Work Phone: [facility]08-13-2025 09:27-0400 Body eyjdze284.78 kgMarisol Connors MD Work Phone: [facility]08-13-2025 09:27-0400 Diastolic blood eclnxwej06 mm[Hg]Marisol Connors MD Work Phone: [facility]08-13-2025 09:27-0400 Heart rate82 /Ovi Connors MD Work Phone: [phone] [place], [place] 1307408-13-2025 09:27-0400 Systolic blood ytimnnsp413 mm[Hg]Marisol Connors MD Work Phone: [facility]07-25-2025 11:47-0400 Body rgwvjy726.04 cmBenjamin Ball DO Work Phone: [facility]07-25-2025 11:47-0400 Body mass index (BMI) [Ratio]28 kg/e7Baupfvhf Ball DO Work Phone: [facility]07-25-2025 11:47-0400 Body .32 kgBenjamin Ball DO Work Phone: [facility]07-25-2025 11:47-0400 Diastolic blood lxxkuamw28 mm[Hg]Dorothy Ball DO Work Phone: [facility]07-25-2025 11:47-0400 Heart rate78 /minBenjamin Ball DO Work Phone: [facility]07-25-2025 11:47-0400 Respiratory rate12 /minBenjamin Ball DO Work Phone: [facility]07-25-2025 11:47-0400 Systolic blood eeflqidi185 mm[Hg]Dorothy Ball DO Work Phone: [facility]07-22-2025 13:59-0400 Body pwtxhy039.65 kgBenjamin Ball DO Work Phone: [phone]07-22-2025 13:59-0400 Diastolic blood wsxnkeqg41 mm[Hg]Dorothy Ball DO Work Phone: [phone]07-22-2025 13:59-0400 Heart rate77 /minBenjamin Ball DO Work Phone: 1(371)253-[address] [place], [place] 3303207-22-2025 13:59-0400 SaO2% (BldA) [Mass fraction]96 %Dorothy Ball DO Work Phone: [phone]07-22-2025 13:59-0400 Systolic blood tvhjruxf604 mm[Hg]Dorothy Ball DO Work Phone: [phone]06-25-2025 08:15-0400 Body pblqyyhyhnz50.5 [degF]Alonso Patricia MD Work Phone: [phone] [place] [address] [employer] Zddwii18-09-7407 08:15-0400Diastolic blood ttmzudgs56 mm[Hg]Alonso Patricia MD Work Phone: 1(632)717-[address] [place] [address] [employer] Tcxbph01-01-5410 08:15-0400Heart rate 63 /minAlonso Patricia MD Work Phone: [phone])088-[address] [place] [address] [employer] Zvugcp57-94-7576 08:15-0400 Respiratory rate15 /minAlonso Patricia MD Work Phone: [phone] [place] [address] [employer] Whmpif85-54-7240 08:15-3133SoE1% (BldA) [Mass fraction]97 %Alonso Patricia MD Work Phone: [facility] [employer] Dyvldv96-73-3593 08:15-0400Systolic blood paadfztt079 mm[Hg]Alonso Patricia MD Work Phone: [facility] [employer] Yvnqof72-01-8316 21:09-0400Body mass index (BMI) [Ratio]28.82 kg/u9FpqkkAlonso Patricia MD Work Phone: [facility]06-23-2025 21:09-0400Body lsuyki830.4 kgAlonso Patricia MD Work Phone: [facility]06-19-2025 14:58-0400Body bifpck461 cmAndfely Patricia MD Work Phone: [facility]04-14-2025 14:29-0400Body alvdzp512.04 [facility] 14:29-0400Body mass index (BMI) [Ratio]30.2 kg/w0DduuaocfcDoctors Hospital04-14-2025 14:29-0400Body ozwlax036.6 kg[facility]04-14-2025 14:29-0400Diastolic blood mm[Hg][facility] 02-16-2025 14:29-0400Heart rate86 /[facility] 02-16-2025 14:29-0400Respiratory rate12 /[facility] 02-16-2025 14:29-0400Systolic blood rysdaltb011 mm[Hg][facility]03-26-2025 11:06-0400Diastolic blood ylperwlt28 mm[Hg]Marisol Connors MD Work Phone: [phone])874-[address] [place], [place] 1307403-26-2025 11:06-0400 Systolic blood cwseuygj923 mm[Hg]Marisol Connors MD Work Phone: [phone])611-[address] [place], [place] 1307403-26-2025 10:36-0400 Body ylqzbh051.9 cmMarisol Connors MD Work Phone: [phone] [place], [place] 1307403-26-2025 10:36-0400 Body mass index (BMI) [Ratio]34.04 kg/l9KocucaMarisol Connors MD Work Phone: [phone])846-[address] [place], [place] 1307403-26-2025 10:36-0400 Body moeeyv718.85 kgMarisol Connors MD Work Phone: 1(336)523-[address] [place], [place] 1307403-26-2025 10:36-0400 Heart rate70 /minMarisol Connors MD Work Phone: [facility]11-20-2024 08:51-0500 Diastolic blood sdlbniws65 mm[Hg]Bert Huang [facility]11-20-2024 08:51-0500Heart rate73 /minBradiana Huang [facility]11-20-2024 08:51-0500Mean blood fyfygxmv50 mm[Hg]Bert Huang [facility]11-20-2024 08:51-0500 Respiratory rate16 /minBradiana Huang [facility]11-20-2024 08:51-0500 Systolic blood mm[Hg]Bert Huang [facility]10-23-2024 10:58-0400 Diastolic blood obehmxkw22 mm[Hg]Stephenie Barrios [facility]10-23-2024 10:58-0400Heart rate72 /minAmanda Barrios [facility]10-23-2024 10:58-0400Mean blood tsqlfhid722 mm[Hg]Stephenie Barrios [facility]10-23-2024 10:58-0400 Respiratory rate14 /minAmanda Barrios [facility]10-23-2024 10:58-0400 Systolic blood lnyftqjc861 mm[Hg]Stephenie Barrios [facility]10-15-2024 10:24-0400Heart rate79 /minBradiana Huang [facility]10-15-2024 10:24-2032JvA6% (BldA) [Mass fraction]98 %Bert uHang [address] [place], [place] 5878210-15-2024 10:24-0400 Diastolic blood qciqxlpj60 mm[Hg]Bert Huang [facility]10-15-2024 10:24-0400Mean blood yjdurutw67 mm[Hg]Bert Huang [facility]10-15-2024 10:24-0400 Systolic blood wvplcxgy132 mm[Hg]Bert Huang [facility]10-15-2024 10:24-0400Body wbglttsphax07.88 [degF]Bert Huang [facility]10-15-2024 10:24-0400 Respiratory rate16 /minBradfrohit Huang [facility]10-15-2024 10:08-0400Heart rate77 /minBradfrohit Huang [facility]10-15-2024 10:08-7839RxH5% (BldA) [Mass fraction]95 %Bert Huang [facility]10-15-2024 10:08-0400 Respiratory rate16 /minBradfrohit Huang [facility]10-15-2024 10:07-0400 Diastolic blood ayvqfipt02 mm[Hg]Bert Huang [facility]10-15-2024 10:07-0400Mean blood hckiwwyt48 mm[Hg]Bert Huang [facility]10-15-2024 10:07-0400 Systolic blood epribtsq259 mm[Hg]Bert Huang [facility]10-15-2024 10:03-0400 Diastolic blood obtzyxgr55 mm[Hg]Bert Huang [facility]10-15-2024 10:03-0400 Systolic blood pijsaquc375 mm[Hg]Bert Huang [facility]10-15-2024 10:00-0400Heart rate83 /minBradiana Jerry [facility]10-15-2024 10:00-0400 Respiratory rate18 /minBradiana Jerry [facility]10-15-2024 10:00-5851BoR4% (BldA) [Mass fraction]97 %Noel Jerry [address] [place], [place] 5878210-15-2024 07:27-0400Body zkvdcbvlayi25.52 [degF]Bert Jerry [address] [place], [place] 5878210-15-2024 07:27-0400Mean blood ubcxsimo546 mm[Hg]Bert Jerry [address] [place], [place] 5878210-08-2024 09:31-0400 Diastolic blood ljctoxuj96 mm[Hg]Noel Jerry [address] [place], [place] 5878210-08-2024 09:31-0400Heart rate67 /minBradiana Jerry [address] [place], [place] 5878210-08-2024 09:31-0400 Systolic blood wwhnekbu317 mm[Hg]Bert Huang [address] [place], [place] 5878209-10-2024 08:47-0400Body oayter384 cmChristopher Philippe DO Work Phone: noPers[facility] HospitalTmamwphcdq22-15-7876 08:47-0400Body mass index (BMI) [Ratio]28.85 kg/m9Efktyoymrni Philippe DO Work Phone: noPers[facility] HospitalZlgwjeqmun84-86-7936 08:47-0400Body eszatc511.5 kgChristopher Philippe DO Work Phone: noPers[facility] HospitalTicyqkndkf78-38-0660 08:47-0400Diastolic blood mm[Hg]Christopher Philippe DO Work Phone: [facility]40-[facility]-0782 08:47-0400Heart rate72 /min Mesfin Paez DO Work Phone: NOPers[facility] HospitalKzegoyfnke87-49-3958 08:47-8075PxC9% (BldA) [Mass fraction]98 %Mesfin Paez DO Work Phone: [facility]OP[facility] HospitalSkkymzlitf41-08-7042 08:47-0400Systolic blood bcdybezr555 mm[Hg]Mesfin Paez DO Work Phone: [facility]OP[facility] HospitalJkcyrmumje39-60-6261 08:52-0400Diastolic blood mm[Hg]Stephenie Barrios [facility]08-28-2024 08:52-0400Heart rate67 /minAmanda Barrios [facility]08-28-2024 08:52-0400Mean blood fpnibsix28 mm[Hg]Stephenie Barrios [facility]08-28-2024 08:52-0400 Respiratory rate14 /minAmanda Barrios [facility]08-28-2024 08:52-0400 Systolic blood jjisevpd005 mm[Hg]Stephenie Barrios [facility]08-20-2024 09:23-0400Heart rate72 /minBradiana Huang [facility]08-20-2024 09:23-2804AgT7% (BldA) [Mass fraction]97 %Bert Huang [facility]08-20-2024 09:23-0400 Diastolic blood jnxatoiv13 mm[Hg]Bert Huang [facility]08-20-2024 09:23-0400Mean blood fpdlngyk808 mm[Hg]Bert Huang [facility]08-20-2024 09:23-0400 Systolic blood xjhwxobs115 mm[Hg]Bert Huang [facility]08-20-2024 09:23-0400Body fmbtfarouzh86.52 [degF]Bert Huang [facility]08-20-2024 09:23-0400 Respiratory rate16 /minBradiana Jerry [facility]08-20-2024 09:13-0400Heart rate77 /minBradiana Jerry [address] [place], [place] 5878208-20-2024 09:13-8340XhR4% (BldA) [Mass fraction]97 %Bert Huang [facility]08-20-2024 09:13-0400 Respiratory rate16 /minBradiana Jerry [address] [place], [place] 5878208-20-2024 09:12-0400 Diastolic blood mm[Hg]Bert Huang [address] [place], [place] 5878208-20-2024 09:12-0400Mean blood waaxrrbw53 mm[Hg]eBrt Huang [facility]08-20-2024 09:12-0400 Systolic blood mm[Hg]Bert Huang [facility]08-20-2024 09:06-0400 Diastolic blood heibzeuo78 mm[Hg]Bert Jerry [address] [place], [place] 5878208-20-2024 09:06-0400 Systolic blood yjlwzozh698 mm[Hg]Bert Huang [facility]08-20-2024 09:05-0400Heart rate75 /minBradiana Huang [address] [place], [place] 5878208-20-2024 09:05-0400 Respiratory rate17 /minBradiana Huang [facility]08-20-2024 09:05-9686WkC8% (BldA) [Mass fraction]97 %Bert Huang [facility]08-20-2024 07:22-0400Mean blood kbujecce646 mm[Hg]Bert Huang [facility]08-20-2024 07:21-0400Body nmeahyfnwtw07.06 [degF]Bert Huang [facility]08-13-2024 08:17-0400 Diastolic blood mm[Hg]Bert Huang [facility]08-13-2024 08:17-0400Heart rate77 /minBradiana Huang [facility]08-13-2024 08:17-0400 Systolic blood rztvpxti259 mm[Hg]Bert Huang [facility]08-09-2024 08:59-0400Body hklgbyypmbv68.4 [degF][facility]08-09-2024 08:59-0400Body .59 kgDo[facility]08-09-2024 08:59-0400Diastolic blood ighbnqxg24 mm[Hg][facility]08-09-2024 08:59-0400 Heart rate74 /minDo[facility]08-09-2024 08:59-1792EmD5% (BldA) [Mass fraction]97 %[facility]08-09-2024 08:59-0400 Systolic blood ygiylghs918 mm[Hg][facility]07-18-2024 09:56-0400Body pngyzm371.9 cmMarisol Connors MD Work Phone: [facility]07-18-2024 09:56-0400 Body mass index (BMI) [Ratio]31.46 kg/f2SiekncMarisol Connors MD Work Phone: [facility]07-18-2024 09:56-0400 Body .23 kgMarisol Connors MD Work Phone: [facility]07-18-2024 09:56-0400 Diastolic blood xvtsusyn80 mm[Hg]Marisol Connors MD Work Phone: [facility]07-18-2024 09:56-0400 Heart rate68 /minMarisol Connors MD Work Phone: [facility]07-18-2024 09:56-0400 Systolic blood wdjhymvl528 mm[Hg]Marisol Connors MD Work Phone: [facility]07-03-2024 14:31-0400 Body exfeje747.04 cmDo[facility]07-03-2024 14:31-0400Body mass index (BMI) [Ratio]28.4 kg/a0TbbcesvoqDoctors Hospital07-03-2024 14:31-0400Body .85 kgDo[facility]07-03-2024 14:31-0400Diastolic blood tyxaxxvt22 mm[Hg][facility] 05-07-2024 14:31-0400Heart rate78 /[facility] 05-07-2024 14:31-0400Respiratory rate16 /[facility] 05-07-2024 14:31-0400Systolic blood gssatvol189 mm[Hg][facility]06-28-2024 10:25-0400Diastolic blood uqbnlutj50 mm[Hg]Stephenie Barrios [facility]06-28-2024 10:25-0400Heart rate79 /minAmanda Barrios [facility]06-28-2024 10:25-0400Mean blood rzfbvecp845 mm[Hg]Stephenie Barrios [facility]06-28-2024 10:25-0400 Respiratory rate14 /minAmanda Barrios [facility]06-28-2024 10:25-0400 Systolic blood kofyvevl926 mm[Hg]Stephenie Barrios [facility]06-24-2024 10:15-0400Body .04 cm[facility]06-24-2024 10:15-0400Body mass index (BMI) [Ratio]28.6 kg/s1AefeqebhsDoctors Hospital06-24-2024 10:15-0400Body qblhcu731.65 kgDo[facility] Hospital06-24-2024 10:15-0400Diastolic blood mm[Hg][facility] 04-28-2024 10:15-0400Heart rate73 /[facility] 04-28-2024 10:15-0400Respiratory rate12 /[facility] 04-28-2024 10:15-0400Systolic blood fkbhegnf569 mm[Hg][facility]05-10-2024 09:47-0400Diastolic blood oeypykul17 mm[Hg]Stephenie Barrios [facility]05-10-2024 09:47-0400Heart rate67 /minAmanda [employer] [facility]05-10-2024 09:47-0400Mean blood ymabdaud71 mm[Hg]Stephenie Barrios [facility]05-10-2024 09:47-0400 Respiratory rate16 /minAmanda Barrios [facility]05-10-2024 09:47-0400 Systolic blood mm[Hg]Stephenie Barrios [facility]03-22-2024 13:26-0400 Diastolic blood chkyqlpl45 mm[Hg]Stephenie Barrios [facility]03-22-2024 13:26-0400Heart rate71 /minAmanda Barrios [facility]03-22-2024 13:26-0400Mean blood nlxvcyii34 mm[Hg]Stephenie Barrios [facility]03-22-2024 13:26-0400 Respiratory rate16 /minAmanotilia Barrios [facility]03-22-2024 13:26-0400 Systolic blood eigkpbjs417 mm[Hg]Stephenie Barrios [facility]03-15-2024 14:37-0400Body romrvr864.04 cmDo[facility]03-15-2024 14:37-0400Body mass index (BMI) [Ratio]27.8 kg/d3TlyshjphzDoctors Hospital03-15-2024 14:37-0400Body agodsm257.58 kgDo[facility]03-15-2024 14:37-0400Diastolic blood vddnyeoj15 mm[Hg][facility] 01-18-2024 14:37-0400Heart rate71 /[facility] 01-18-2024 14:37-0400Respiratory rate16 /[facility] 01-18-2024 14:37-0400Systolic blood peddjeox293 mm[Hg][facility]03-06-2024 11:34-0500Heart rate57 /minBradiana Jerry [facility]03-06-2024 11:34-3795JeD9% (BldA) [Mass fraction]96 %Bert Huang [facility]03-06-2024 11:34-0500 Diastolic blood winmaeyp99 mm[Hg]Bert Huang [facility]03-06-2024 11:34-0500Mean blood xvabgxte776 mm[Hg]Bert Huang [facility]03-06-2024 11:34-0500 Systolic blood kfnxlvoh014 mm[Hg]Bert Huang [facility]03-06-2024 11:33-0500 Respiratory rate16 /minBradfrohit Jerry [facility]03-06-2024 11:27-0500 Diastolic blood zbsrkdam20 mm[Hg]Bert Huang [facility]03-06-2024 11:27-0500Heart rate71 /minBradiana Jerry [facility]03-06-2024 11:27-0500 Respiratory rate14 /minBradfrohit Jerry [facility]03-06-2024 11:27-2436WsF9% (BldA) [Mass fraction]98 %Bert Huang [facility]03-06-2024 11:27-0500 Systolic blood spzdxtwo312 mm[Hg]Bert Huang [facility]03-06-2024 11:03-0500 Diastolic blood ltlujvko11 mm[Hg]Bert Huang [facility]03-06-2024 11:03-0500Heart rate62 /minBravasylrohit Huang [facility]03-06-2024 11:03-0500Mean blood uiyqwlvy730 mm[Hg]Bert Huang [facility]03-06-2024 11:03-0500 Systolic blood dkcpeaqb128 mm[Hg]Bert Huang [facility]03-06-2024 11:01-6249CuR1% (BldA) [Mass fraction]96 %Bert Huang [facility]03-06-2024 11:00-0500Mean blood phaylpqr916 mm[Hg]Bert Huang [facility]03-06-2024 11:00-0500Body unyhezjgscw87.7 [degF]Bert Huang [facility]03-06-2024 11:00-0500 Respiratory rate14 /minBert Huang [facility]02-26-2024 09:48-0500Body .04 cm[facility]02-[facility]-2024 09:48-0500Body mass index (BMI) [Ratio]27.6 kg/b3GsjblhvaxDoctors Hospital02-26-2024 09:48-0500Body zgkmyn600.73 kgDo[facility]02-26-2024 09:48-0500Diastolic blood ygbkitfx41 mm[Hg][facility] 12-31-2023 09:48-0500Heart rate68 /[facility] 12-31-2023 09:48-0500Respiratory rate16 /[facility] 12-31-2023 09:48-0500Systolic blood jusokfhq677 mm[Hg][facility]02-09-2024 09:54-0500Blood Pressure LocationPatrick XAVIER [facility]02-09-2024 09:54-0500Diastolic blood lucavvrg37 mm[Hg]Homero XAVIER [facility]02-09-2024 09:54-0500Heart rate81 /minPatrick XAVIER [facility]02-09-2024 09:54-0500Respiratory rate16 /minPatrick XAVIER [facility]02-09-2024 09:54-0500Systolic blood cqoultax044 mm[Hg]Homero XAVIER [facility]02-05-2024 12:26-0500Diastolic blood mm[Hg]Stephenie Barrios [facility]02-05-2024 12:26-0500Heart rate60 /minAmanda Barrios [facility]02-05-2024 12:26-0500Mean blood qbnnnyqv480 mm[Hg]Stephenie Barrios [facility]02-05-2024 12:26-0500 Respiratory rate20 /minAmanda Barrios [facility]02-05-2024 12:26-0500 Systolic blood hmcgpsje955 mm[Hg]Stephenie [employer] [facility]01-10-2024 10:31-0500Body eefzvi914.9 cmMarisol Connors MD Work Phone: [phone]01-10-2024 10:31-0500 Body mass index (BMI) [Ratio]31.33 kg/b0XwpiopMarisol Connors MD Work Phone: [phone]01-10-2024 10:31-0500 Body swhauk983.78 kgMarisol Connors MD Work Phone: [phone])[address]11 [address]01-10-2024 10:31-0500 Diastolic blood horuquum66 mm[Hg]Marisol Connors MD Work Phone: 1(484)199-[address] [place], [place] 1307401-10-2024 10:31-0500 Heart rate62 /minMarisol Connors MD Work Phone: 1(461)613-[address] [place], [place] 1307401-10-2024 10:31-0500 Systolic blood mm[Hg]Marisol Connors MD Work Phone: [phone])[address]01-05-2024 11:14-0500 Diastolic blood mm[Hg]Stephenie [employer] [facility]01-05-2024 11:14-0500Heart rate67 /minAmanda Barrios [facility]01-05-2024 11:14-0500Mean blood lkmiekdr48 mm[Hg]Stephenie Barrios [facility]01-05-2024 11:14-0500 Respiratory rate14 /minAmanda Sophie [facility]01-05-2024 11:14-0500 Systolic blood etupjvzs037 mm[Hg]Stephenie Barrios [facility]12-19-2023 09:00-0500Body awehbf791.04 cmBenjamin Ball Other [facility]12-19-2023 09:00-0500 Body mass index (BMI) [Ratio]28.31 kg/h8Ofnieldq Ball Other [facility] [employer] Other [id number] 09:00-0500Body yatnyu094.51 kgBenjamin Ball Other [facility] [employer] Other [id number] 09:00-0500Body mnohem746.5 kg[facility]12-19-2023 09:00-0500Diastolic blood fsskdsde44 mm[Hg] Dorothy Ball Other [facility]12-19-2023 09:00-0500 Respiratory rate12 /minBenjamin Ball Other [employer] Other [id number] 09:00-0500Systolic blood dbjqoqzf796 mm[Hg] Dorothy Ball Other [facility]12-04-2023 08:11-0500 Heart rate62 /minBib Sanchez [facility]12-04-2023 08:11-1049DbA2% (BldA) [Mass fraction]93 %Bib Sanchez [facility]12-04-2023 08:11-0500 Diastolic blood ymigapmt04 mm[Hg]Bib Sanchez [address] [place], [place] 5878212-04-2023 08:11-0500Mean blood ydspwglb456 mm[Hg]Bib Sanchez [address] [place], [place] 5878212-04-2023 08:11-0500 Systolic blood zeefolcq229 mm[Hg]Bib Sanchez [address] [place], [place] 5878212-04-2023 08:11-0500 Respiratory rate16 /Sav Sanchez [address] [place], [place] 5878212-04-2023 08:02-0500 Diastolic blood gruvcbrt68 mm[Hg]Bib Sanchez [address] [place], [place] 5878212-04-2023 08:02-0500Heart rate63 /Sav Sanchez [address] [place], [place] 5878212-04-2023 08:02-8916IoK6% (BldA) [Mass fraction]97 %Bib Sanchez [facility]12-04-2023 08:02-0500 Systolic blood zdpmzboj858 mm[Hg]Bib Sanchez [address] [place], [place] 5878212-04-2023 07:16-0500Heart rate61 /Sav Sanchez [address] [place], [place] 5878212-04-2023 07:16-4007TdJ3% (BldA) [Mass fraction]95 %Bib Sanchez [address] [place], [place] 5878212-04-2023 07:16-0500Body qfrhryvlsyl59.88 [degF]Bib Sanchez [address] [place], [place] 5878212-04-2023 07:16-0500 Diastolic blood bwdzqsfo58 mm[Hg]Bib Sanchez [facility]12-04-2023 07:16-0500Mean blood dxyohnwn442 mm[Hg]Bib Laura [facility]12-04-2023 07:16-0500 Systolic blood xkgtnetx243 mm[Hg]Bib Laura [facility]12-04-2023 07:12-0500 Respiratory rate15 /minBib Sanchez [address] [place], [place] 5878211-10-2023 07:47-0500 Diastolic blood uepzsufr57 mm[Hg]Stephenie Barrios [address] [place], [place] 5878211-10-2023 07:47-0500Heart rate63 /minElginotilia Barrios [facility]11-10-2023 07:47-0500Mean blood mm[Hg]Stephenie Barrios [address] [place], [place] 5878211-10-2023 07:47-0500 Respiratory rate16 /minAmanda Barrios [address] [place], [place] 5878211-10-2023 07:47-0500 Systolic blood gqlyjqhl033 mm[Hg]Stephenie Barrios [address] [place], [place] 5878210-03-2023 13:25-0400Heart rate61 /Sav Sanchez [address] [place], [place] 5878210-03-2023 13:25-3484YsG3% (BldA) [Mass fraction]97 %Bib Laura [address] [place], [place] 5878210-03-2023 13:25-0400 Diastolic blood rwtothfq15 mm[Hg]Bib Sanchez [facility]10-03-2023 13:25-0400Mean blood fnorfiwt761 mm[Hg]Bib Sanchez [facility]10-03-2023 13:25-0400 Systolic blood wifuhsda208 mm[Hg]Bib Laura [facility]10-03-2023 13:19-0400 Diastolic blood qvyflkug47 mm[Hg]Bib Laura [facility]10-03-2023 13:19-0400Heart rate65 /minJoshua Laura [address] [place], [place] 5878210-03-2023 13:19-5006AgR9% (BldA) [Mass fraction]95 %Bib Laura [facility]10-03-2023 13:19-0400 Systolic blood iyvhbqys569 mm[Hg]Bib Laura [address] [place], [place] 5878210-03-2023 12:34-0400Heart rate62 /minBib Sorensonner [address] [place], [place] 5878210-03-2023 12:34-2683CrN3% (BldA) [Mass fraction]95 %Bibnicol Sorensonner [facility]10-03-2023 12:34-0400Body mrqwqpfrmyi83.7 [degF]Bib Laura [address] [place], [place] 5878210-03-2023 12:34-0400 Diastolic blood whiwrikg75 mm[Hg]Bib Laura [address] [place], [place] 5878210-03-2023 12:34-0400Mean blood pcfajnjm491 mm[Hg]Bib Laura [address] [place], [place] 5878210-03-2023 12:34-0400 Systolic blood mm[Hg]Bib Laura [address] [place], [place] 5878210-03-2023 12:33-0400 Respiratory rate14 /minJoshua Laura [facility]07-07-2023 09:40-0400 Diastolic blood mwgbycey24 mm[Hg]Stephenie Barrios [facility]07-07-2023 09:40-0400Heart rate68 /minAmanda Barrios [facility]07-07-2023 09:40-0400Mean blood mm[Hg]Stephenie Barrios [facility]07-07-2023 09:40-0400 Respiratory rate14 /minAmanda Barrios [facility]07-07-2023 09:40-0400 Systolic blood ihrslewh709 mm[Hg]Stephenie Barrios [facility]06-27-2023 14:39-0400Heart rate61 /minBib Sanchez [facility]06-27-2023 14:39-5236BjU7% (BldA) [Mass fraction]96 %Bib Laura [facility]06-27-2023 14:39-0400 Diastolic blood vuvfublj86 mm[Hg]Bib Sanchez [facility]06-27-2023 14:39-0400Mean blood dypsuheu625 mm[Hg]Bib Sanchez [facility]06-27-2023 14:39-0400 Systolic blood exxazetx331 mm[Hg]Bib Laura [facility]06-27-2023 14:39-0400 Respiratory rate14 /minJoshua Laura [facility]06-27-2023 14:34-0400 Diastolic blood itzeumkg15 mm[Hg]Bibrubi Sanchez [facility]06-27-2023 14:34-0400Heart rate63 /minBib Sorensonner [facility]06-27-2023 14:34-0400 Respiratory rate14 /minBib Laura [facility]06-27-2023 14:34-8869OrE6% (BldA) [Mass fraction]98 %Bibrubi Sanchez [facility]06-27-2023 14:34-0400 Systolic blood esktcpaj412 mm[Hg]Bib Laura [facility]06-27-2023 14:04-0400Heart rate60 /Sav Sorensonner [facility]06-27-2023 14:04-5267BvV9% (BldA) [Mass fraction]94 %Bib Laura [facility]06-27-2023 14:04-0400 Diastolic blood ssgjuvst68 mm[Hg]Bib Sanchez [facility]06-27-2023 14:04-0400Mean blood xtroshfx647 mm[Hg]Bib Sanchez [facility]06-27-2023 14:04-0400 Systolic blood hmyyjjmi739 mm[Hg]Bib Laura [facility]06-27-2023 14:04-0400Body fdbcifogqih28.34 [degF]Bib Laura [facility]06-27-2023 14:04-0400 Respiratory rate14 /minBib Sanchez [facility]06-26-2023 09:00-0400Body frbwan540.04 cmBenjamin Ball Other [facility] [employer] Other 06-26-2023 09:00-0400Body mass index (BMI) [Ratio] 28.36 kg/u7Odsrrtia Ball Other [facility] [employer] Other 06-26-2023 09:00-0400Body sywamx496.69 kgBenjamin Ball Other [facility] [employer] Other 06-26-2023 09:00-0400Diastolic blood jmjkzuec71 mm[Hg] Dorothy Ball Other [facility] [employer] Other 06-26-2023 09:00-0400Respiratory rate12 /minBenjamin Ball Other [facility] [employer] Other 06-26-2023 09:00-0400Systolic blood tcnnimxa868 mm[Hg] Dorothy Ball Other [facility] [employer] Other 05-15-2023 08:45-0400Diastolic blood ozcnfgoi12 mm[Hg] Stephenie Barrios [facility]05-15-2023 08:45-0400Heart rate67 /minAmanda [employer] [facility]05-15-2023 08:45-0400Mean blood rzeakkdf887 mm[Hg]Stephenie Barrios [facility]05-15-2023 08:45-0400 Respiratory rate20 /minAmanda [employer] [facility]05-15-2023 08:45-0400 Systolic blood kpnocdag766 mm[Hg]Stephenie Barrios [facility]05-08-2023 09:15-0400Heart rate65 /minJoshua Laura [facility]05-08-2023 09:15-9148SuW8% (BldA) [Mass fraction]96 %Bib Sanchez [facility]05-08-2023 09:15-0400 Diastolic blood cexsdweg66 mm[Hg]Bib Sanchez [address] [place], [place] [id number] 09:15-0400Mean blood mm[Hg]Bib Sanchez [address] [place], [place] [id number] 09:15-0400 Systolic blood nmrxfajc938 mm[Hg]iBb Sanchez [address] [place], [place] [id number] 09:15-0400 Respiratory rate16 /Sav Sanchez [address] [place], [place] [id number] 09:11-0400 Diastolic blood bkhigkwm72 mm[Hg]Bib Sanchez [address] [place], [place] [id number] 09:11-0400Heart rate70 /Sav Sanchez [address] [place], [place] [id number] 09:11-0400 Respiratory rate14 /Sav Sanchez [address] [place], [place] [id number] 09:11-0524RgG2% (BldA) [Mass fraction]94 %Bib Sanchez [address] [place], [place] [id number] 09:11-0400 Systolic blood wibdxdax536 mm[Hg]Bibrubi Sorensonner [address] [place], [place] [id number] 08:09-0400Heart rate71 /minBib Sorensonner [address] [place], [place] [id number] 08:09-6334VdX8% (BldA) [Mass fraction]95 %Bib Sanchez [facility]05-08-2023 08:09-0400 Diastolic blood jurjljoi44 mm[Hg]Bib Sanchez [facility]05-08-2023 08:09-0400Mean blood yyjpwkux291 mm[Hg]Bib Sanchez [facility]05-08-2023 08:09-0400 Systolic blood dgigkjbs119 mm[Hg]Bib Sanchez [facility]05-08-2023 08:09-0400Body ofbeduuervb55.52 [degF]Bib Sanchez [facility]05-08-2023 08:09-0400 Respiratory rate12 /minBib Sanchez [facility]05-04-2023 09:32-0400Body bnryaa910.04 cmBenjamin E Ball Work Phone: [phone]-Rxzan [place] Andre Phillipe [address] DO Work Phone: 1(901) 527-842105-04-2023 09:32-0400Body mass index (BMI) [Ratio] 29.21 kg/j4Bgznxhkp E Ball Work Phone: mp090-2101CG-Myeha [place] [facility]ne[facility] 250 DO Work Phone: 1(547) 307-453305-04-2023 09:32-0400Body surface area Derived from formula2.39 w1Btabwobs E Ball Work Phone: mp323-6483SI-Etguj [place] [facility] 250 DO Work Phone: 1(104) 133-806005-04-2023 09:32-0400Body kayjyy601.86 kgBenjamin E Ball Work Phone: mp425-8905RB-Fccal [place] [facility]Door 250 DO Work Phone: 1(354) 977-210505-04-2023 09:32-0400Diastolic blood mm[Hg] Dorothy E Ball Work Phone: mp447-7426DO-Mighw [place] [address] 250 DO Work Phone: 1(446) 222-457005-04-2023 09:32-0400Heart rate68 /minBenjamin E Ball Work Phone: mp139-5210AK-Tdmdr [place] [address] 250 DO Work Phone: 1(589) 268-567905-04-2023 09:32-0400Systolic blood mpocjjkh105 mm[Hg] Dorothy Bustillo Ball Work Phone: mp594-4921JJ-Wcqqs [place] Andre Phillipe 250 DO Work Phone: 1(585) 480-793004-19-2023 14:00-0400Body eftodq849.04 cmDeborah Blades Other [employer] Other 04-19-2023 14:00-0400Body mass index (BMI) [Ratio] 30.43 kg/q6Yhraygi Blades Other [facility] Other 04-19-2023 14:00-0400Body degdmv917.4 kgDeborah Blades Other [employer] Other 04-19-2023 14:00-0400Diastolic blood nitqqrrh00 mm[Hg] Allison Blades Other [employer] Other 04-19-2023 14:00-0400Systolic blood sazqtjzj445 mm[Hg] Allison Blades Other [employer] Other 02-27-2023 10:00-0500Body evdqhf396.5 cmHENRY VUCETIC Other [facility] Other 02-27-2023 10:00-0500Body mass index (BMI) [Ratio] 30.62 kg/l1AHPQM VUCETIC Other [facility] [employer] Other 02-27-2023 10:00-0500Body plttne928.13 kgHENRY VUCETIC Other [facility] [employer] Other 02-27-2023 10:00-0500Diastolic blood xgydhgos23 mm[Hg] [facility] [employer] [facility] 02-27-2023 10:00-0500Respiratory rate16 /minHENRY VUCETIC [facility] [employer] Other 02-27-2023 10:00-0500Systolic blood jrognbtf667 mm[Hg] LUDWIN [facility]UCETIC [facility] [employer] Other 01-25-2023 10:30-0500Body uzxblr025.04 cmDekittitas [facility] healthcare Blades Other [facility] Other 01-25-2023 10:30-0500Body mass index (BMI) [Ratio] 29.84 kg/b5Gbicklj Blades Other [facility] Other 01-25-2023 10:30-0500Body huuqyl794.22 kgDebor Blades Other [facility] Other 01-25-2023 10:30-0500Diastolic blood qsdxufuq11 mm[Hg] Allison Blades Other [employer] Other 01-25-2023 10:30-0500Systolic blood jejmyzhv359 mm[Hg] Allison Blades Other [employer] Other 01-24-2023 09:00-0500Blood Pressure LocationJENNIFER NINA [facility]01-24-2023 09:00-0500Diastolic blood obzoxwnq26 mm[Hg]ALANIS NINA [facility]01-24-2023 09:00-0500Heart rate68 /minJENNIFER NINA [facility]01-24-2023 09:00-0500Respiratory rate16 /minJENNIFER NINA [facility]01-24-2023 09:00-0500Systolic blood irzosyze667 mm[Hg]ALANIS WOOD [facility]11-22-2022 09:33-0500Body .04 cmBenjamin E Ball Work Phone: mp257-5633WC-Khxjyjbcyq-Door 250 DO Work Phone: 1(897) [phone] 09:33-0500Body mass index (BMI) [Ratio]29.7 kg/h1Wtvicztt E Ball Work Phone: mp275-8808TZ-Uvvgmgwkfj-Door 250 DO Work Phone: 1(424) 643-333511-22-2022 09:33-0500Body surface area Derived from formula2.41 a9Espjugje E Ball Work Phone: mp885-4006IY-Ufnwyyuxyj-Maribeth 250 DO Work Phone: 1(320) 453-596811-22-2022 09:33-0500Body .68 kgBenjamin E Ball Work Phone: 1(631) 450-6399370-9691BN-Dehqznsmxk-Maribeth 250 DO Work Phone: 1(721) [phone] 09:33-0500Diastolic blood epkzeyub36 mm[Hg] Dorothy E Ball Work Phone: mp983-2310RI-Gganidlvbt-Maribeth 250 DO Work Phone: 1(563) 962-403711-22-2022 09:33-0500Heart rate76 /minBenjamin E Ball Work Phone: mp746-9552HO-Jqfwopngwj-Door 250 DO Work Phone: 1(498) 652-470311-22-2022 09:33-0500Systolic blood pocvrwvq858 mm[Hg] Dorothy E Ball Work Phone: mp159-0135CM-Knawjbfugi-Maribeth 250 DO Work Phone: 1(862) 578-369805-24-2022 13:43-0400Body cuvxir498.04 cmBenjamin E Ball Work Phone: mp646-4639CJ-Mnfgp [place] [facility] 250 DO Work Phone: 1(594) 722-409505-24-2022 13:43-0400Body mass index (BMI) [Ratio] 28.48 kg/h6Oxnblmor E Ball Work Phone: mp564-2472IE-Vibwz [place] [facility]Maribeth 250 DO Work Phone: 1(532) 845-375605-24-2022 13:43-0400Body surface area Derived from formula2.37 a7Rwpsahvw E Ball Work Phone: mp334-1890BW-Obrxl [place] [facility]oor 250 DO Work Phone: 1(504) [phone] 13:43-0400Body nilzyr778.14 kgBenjamin E Ball Work Phone: mp586-8961QL-Rdazd [place] [facility]Maribeth 250 DO Work Phone: 1(246) 367-949905-24-2022 13:43-0400Diastolic blood uxwdrydr82 mm[Hg] Dorothy E Ball Work Phone: mp641-3510UU-Tttze [place] [facility]oor 250 DO Work Phone: 1(477) 278-828105-24-2022 13:43-0400Heart rate88 /minBenjamin E Ball Work Phone: mp451-4091TD-Fuuvv [place] [facility] 250 DO Work Phone: 1(896) [phone] 13:43-0400Systolic blood etohozsc732 mm[Hg] Dorothy Hall Work Phone: 1(673) [phone]-Lxhgu [place] [facility] 250 DO Work Phone: Encounters Encounter DateEncounter TypeCare ProviderFacilityStart: 08-31-2025 End: 02-21-0421ethkafnmupQuhtifeg Ball DO Work Phone: [facility]: 08-31[facility]2025 End: 56-92-7850Xulwdhl encounter procedureBendaxa Hall DO-[facility] Work Phone: Start: 08-20-2025 End: 25-52-6088nomzparwspVrrefkjz Ball DO Work Phone: [facility] Work Phone: Start: 08-20-2025 End: 06-46-0707Szcadgw encounter procedureChristopher Philippe Gao DO-[facility] [place] Work Phone: Start: 07-22-2025 End: 70-95-4020Kojcwj flowsheetCarlos Obrien DO Work Phone: [facility] EyeStart: 07-22-2025 End: 14-05-9432Ertvbu flowsheetCarlos Millser DO Work Phone: noms [facility] EyeStart: 07-22-2025 End: 49-54-9376Ertktq follow up visit related to original pxCarlos Millser DO Work Phone: noms [facility] EyeComment on above:Dry eyes (Primary Dx); Blepharitis of upper and lower eyelids of both eyes, unspecified typeStart: 07-22-2025 End: 96-24-4850ivorcqtedbNSMDSLWE D ZAHLERNot AvailableStart: 30-91-0902Dye- patient / Non-visitBebetossrebecca Gao MD [facility] Work Phone: Start: 06-17-2025 End: 75-37-7279Qotgqt outpatient visit 25 minutesMarisol Connors MD Work Phone: [facility] on above:Arteriosclerosis of coronary artery; Essential hypertension; Dyslipidemia; Status post coronary angioplasty; BMI 28.0-28.9,adult; Former smokerStart: 06-17-2025 End: 91-86-0455bgduyrvvqsUGFFWV M [facility] AmbulatoryStart: 06-02-2025 End: 62-10-6834Yxrqrb Jesus OBTELLO Work Phone: [facility]oms [place] [facility]icsStart: 06-02-2025 End: 67-48-1380Gzymfh Jesus BOTELLO Work Phone: noms [place] [facility]edicsStart: 06-02-2025 End: 45-36-1268Qpbffe outpatient visit 25 minutesLamonique BOTELLO Work Phone: noms [place] OrthopaedicsComment on above:Acute pain of left knee (Primary Dx); Acute pain of left shoulder; Arthritis of left knee; Impingement of left shoulderStart: 06-02-2025 End: 58-66-6954loopktbyxqZOQGJWN J MEYERNot AvailableStart: 05-29-2025 End: 82-53-5559xqsafleoxfUenwtlov Ball DO Work Phone: [facility] Work Phone: Start: 05-29-2025 End: 10-31-6699Ysbpmpb encounter procedureBenjamin Ball DO-[facility] Work Phone: Start: 05-26-2025 End: 67-12-2141xwgctgamviPxzlcgaa Ball DO Work Phone: [facility] Work Phone: Start: 05-26-2025 End: 66-49-3346Bdpjjsp encounter procedureChrisjose Gao DO-[facility] [place] Work Phone: start: 65-62-7139yjlijsadktTkcfwwr J BuckFacility: SURG CLINICStart: 94-35-4327Fqd-patient / Non-visitCatherine Robert [facility] Work Phone: Start: 05-01-2025 End: 60-21-2596Ghtiebefm encounterJr. Perry Garay DO Work Phone: [facility] FB ORTHOPAEDICSComment on above:Needs Premed for dental apptStart: 05-01-2025 End: 73-54-3423cvgposzhyqYBJWTOFOAscension Sacred Heart Bay HospitalStart: 76-87-9913Diw-patient / Non-visitBenMercy Health [facility] DO-[facility] [place] Work Phone: Start: 83-04-5081vjiatpubcbCUGSHYDKHouse of the [facility] Ambulatory PPGStart: 04-22-2025 End: 83-77-9632Eadvoxqgdg and management of inpatientTejathu Albarran MD Work Phone: [facility] - GEN 9 AcuteStart: 04-22-2025 End: 81-82-2257Qcobldstq department patient visitCommunity [facility] Hospital Ambulatory PPGStart: 50-33-7651Vbi-patient / Non-visitVinny Gao MD-[facility] Work Phone: Start: 76-56-2292Gca-patient / Non-visitVinny Gao MD-[facility] Work Phone: Start: 81-18-3424Aup-patient / Non-visitHaseeb Jackson DO-[facility] Work Phone: Start: 77-56-4205Ino-patient / Non-visitCatherine Robert [facility] Work Phone: Start: 52-31-6293Jrp-patient / Non-visitBenMercy Health [facility] DO-[facility] Work Phone: Start: 03-27-2025 End: 49-31-6625casqmaspayBWXGPLUA D ZAHLERNot AvailableStart: 89-26-3324Psp- patient / Non-visitB[facility]andstone [facility] Rafael [facility] Work Phone: Start: 01-13-4250Bav-patient / Non-visitBesandstone critical access hospital Rafael DO-[facility] Work Phone: Start: 39-41-8964dlbnwjbcxzEGDSPTVCBoston L[facility] Ambulatory PPGStart: 00-22-0843jkqjcmropaCKFNGYESBoston [facility] Ambulatory PPGStart: 03-04-2025 End: 56-09-4409Fqzsexqck department patient visitCommunity Memorial Hospital Ambulatory PPGStart: 00-65-4965vwlhaxgumjAKORLVEEBoston [facility] Hospital Ambulatory PPGStart: 02-24-2025 End: 20-26-1313Jdbrlctpbw and management of inpatientRene Ame WALTERS [facility]: 02-18-2025 End: 34-68-0100qqkzpjlwsgFerfexHong Schmid MDFacility:[facility] Start: 02-16-2025 End: 18-24-1923lsrilhuznlMxcpokiacMain Campus Medical Center Work Phone: Start: 02-16-2025 End: 33-74-5343Vpzrqctmu for other preprocedural examinationSalem Regional Medical Centertart: 02-16-2025 End: 53-95-1354Mxnkmes encounter procedureFormerly [facility] Medical [facility] Work Phone: Start: 01-28-2025 End: 09-82-6373Ytyshd outpatient visit 25 minutesMarisol Connors MD Work Phone: [facility] on above:Pre-operative cardiovascular examination (Primary Dx); Arteriosclerosis of coronary artery; Essential hypertension; Dyslipidemia; Status post coronary angioplasty; Former smoker; BMI 34.0-34.9,adult; Obesity, Class I, BMI 30-34.9Start: 01-28-2025 End: 18-21-7568Milfufa encounter statusMarisol Connors MD Work Phone: [facility] [place] Work Phone: Start: 01-28-2025 End: 79-02-8296pjvklnzyugQUZOKF M [facility] AmbulatoryStart: 01-28-2025 End: 32-29-4569Rrzgrpiyg for preprocedural cardiovascular examinationHADAMARI Gao [facility] AmbulatoryStart: 30-21-3180Sgy-patient / Non-visit [facility] Work Phone: Start: 11-12-2024 End: 40-19-6984Nelxgp flowsheetJr. Perry Garay DO Work Phone: noms [facility]WS ORTHOStart: 11-12-2024 End: 33-17-7150Otymtm flowsheetJr. Perry Garay DO Work Phone: noms [facility] ORTHOStart: 11-12-2024 End: 08-12-8581yrnwnppzhrTQ., PERRY Swartz AvailableStart: 11-12-2024 End: 64-45-0995Cpfzrf outpatient visit 25 minutesJr. Perry Garay DO Work Phone: noms SWS ORTHOComment on above:Swelling of joint of right knee (Primary Dx); Right knee pain, unspecified chronicityStart: 11-12-2024 End: 18-21-1124zxzzzxdmsnUG., PERRY Swartz AvailableStart: 09-24-2024 End: 16-19-9257jzmcuvknnyWSJAHDWD BALLFacility:FTMCStart: 09-24-2024 End: 58-50-2868Hlyfcrm encounter procedureBert Huang [facility] Start: 08-27-2024 End: 95-00-3105lxssumaialELWVYLZA BALLFacility:FTMCStart: 08-27-2024 End: 95-71-9603Wjdoquw encounter procedureStephenie Barrios [facility] Start: 08-19-2024 End: 59-53-3032llxvexdnbeQmwpdewt A. JonesFacility:FTMCStart: 08-19-2024 End: 11-82-7710Qmiv ManagementBert Huang [facility] Start: 08-14-2024 End: 99-92-8742Oqmial [employer] CompanyLaverne Jara [facility] PT Work Phone: noMS CI PTStart: 08-14-2024 End: 43-84-6272Eislhm [employer] CompanyToneyCelirodeneen Jara [facility] Work Phone: NOMS CI PTStart: 08-14-2024 End: 51-16-8102jkakdavdijAurxra T [facility] PT Work Phone: noMS CI PTComment on above:Acute pain of left knee (Primary Dx); Poor balance; History of fall; Difficulty walking; Leg weakness, bilateral; Foot drop, right footStart: 08-12-2024 End: 41-38-2696qrnduzijygSlhugees A. JonesFacility:FTMCStart: 08-12-2024 End: 36-39-1669Drophpi encounter procedureBert Huang [facility] Start: 08-11-2024 End: 11-45-5034ojcybujxblVjipqujt Brink PTANOMS CI PTComment on above:Acute pain of left knee (Primary Dx); Poor balance; History of fall; Difficulty walking; Leg weakness, bilateral; Foot drop, right foot; History of falling; Left hip impingement syndrome; Right hip impingement syndromeStart: 08-11-2024 End: 28-77-8628Sacqee flowsheetMarshall Brink PTANOMS CI PTStart: 08-11-2024 End: 18-07-4500Extgyc flowsKailyn Alas PTANOMS CI PTStart: 08-07-2024 End: 71-42-2598Qfkmux flowsKailyn Alas PTANOMS CI PTStart: 08-07-2024 End: 24-08-5974Mwhamn flowsKailyn Alas PTANOMS CI PTStart: 08-07-2024 End: 18-44-2338uirhagnnvrSqdpzamn Brink PTANOMS CI PTComment on above:Acute pain of left knee (Primary Dx); Poor balance; History of fall; Difficulty walking; Leg weakness, bilateral; Foot drop, right foot; History of falling; Left hip impingement syndrome; Right hip impingement syndromeStart: 08-05-2024 End: 46-90-9814Zfhuum Leslie Alas PTANOMS CI PTStart: 08-05-2024 End: 33-33-6848Htfhkl Leslie Alas PTANOMS CI PTStart: 08-05-2024 End: 83-95-8746vmyiwbzeqdCkxncnka Brink PTANOMS CI PTComment on above:Acute pain of left knee (Primary Dx); Poor balance; History of fall; Difficulty walking; Leg weakness, bilateral; Foot drop, right foot; History of falling; Left hip impingement syndrome; Right hip impingement syndromeStart: 07-31-2024 End: 35-14-3711Fkmouc flowsNoe Gaspary PTANOMS CI PTStart: 07-31-2024 End: 48-06-3462Tncwad flowsheetMelritesh Gaspary PTANOMS CI PTStart: 07-31-2024 End: 99-52-5145werhwhlmlfCilrylg Kelbley PTANOMS CI PTComment on above:Acute pain of left knee (Primary Dx); Poor balance; History of fall; Difficulty walking; Leg weakness, bilateral; Foot drop, right foot; History of fallingStart: 07-29-2024 End: 08-92-0796Czytya flowsKailyn Alas PTANOMS CI PTStart: 07-29-2024 End: 78-76-2599Zjumei flowsheetSiminsheldon Brink PTANOMS CI PTStart: 07-29-2024 End: 90-67-3571ylrbugdhheEyqwsenf Brdonna PTANOMS CI PTComment on above:Acute pain of left knee (Primary Dx); Poor balance; History of fall; Difficulty walking; Leg weakness, bilateral; Foot drop, right foot; History of falling; Left hip impingement syndrome; Right hip impingement syndromeStart: 07-24-2024 End: 50-52-2843Fvsruj flowsheetJenny Brdonna PTANOMS CI PTStart: 07-24-2024 End: 26-22-3902Qpvfjj flowsheetJenny Brdonna PTANOMS CI PTStart: 07-24-2024 End: 24-81-9739xtjkzipytiUkfdymyj Brdonna PTANOMS CI PTComment on above:Acute pain of left knee (Primary Dx); History of fall; Poor balance; Difficulty walking; Leg weakness, bilateral; Foot drop, right foot; History of falling; Left hip impingement syndrome; Right hip impingement syndromeStart: 07-22-2024 End: 87-63-8509Cjdtps flowsheetJenny Brdonna PTANOMS CI PTStart: 07-22-2024 End: 52-19-5014Quijdg flowsheetJenny Alas PTANOMS CI PTStart: 07-22-2024 End: 33-51-4395xpjeiaoltrNfqjgtzl Brdonna PTANOMS CI PTComment on above:Acute pain of left knee (Primary Dx); History of fall; Poor balance; Difficulty walking; Leg weakness, bilateral; Foot drop, right foot; History of falling; Left hip impingement syndrome; Right hip impingement syndromeStart: 07-17-2024 End: 19-71-3176Ekllni flowsheetPatti Guzmantersall PTANOMS CI PTStart: 07-17-2024 End: 53-79-4167Kgndou flowsheetMariah Tattersall PTANOMS CI PTStart: 07-17-2024 End: 24-93-5027yavpxpgxnjXxypac Tattersall PTANOMS CI PTComment on above:Acute pain of left knee (Primary Dx); History of fall; Poor balance; Leg weakness, bilateralStart: 07-15-2024 End: 58-80-8211Lbeaax flowsheetChristopher Philippe DO Work Phone: noms [facility] R[facility]TEStart: 07-15-2024 End: 23-83-6418Dbohoq flowsheetChristopher Philippe DO Work Phone: noms [facility] ROUTEStart: 07-15-2024 End: 44-94-6247zglpwtezxkCjqwzxqa Brink PTANOMS CI PTComment on above:Acute pain of left knee (Primary Dx); History of fall; Poor balance; Leg weakness, bilateral; Difficulty walking; Foot drop, right foot; History of falling; Left hip impingement syndrome; Right hip impingement syndromeStart: 07-15-2024 End: 25-99-9677Yfsfnn outpatient new 45 minutesChristopher Philippe DO Work Phone: noms [facility] ROUTEComment on above:Multilevel degenerative disc disease (Primary Dx); HypophoniaStart: 07-10-2024 End: 14-18-6619Jpfzgx flowsheetMarshall Brink PTANOMS CI PTStart: 07-10-2024 End: 30-74-4690Didnfz flowsheetMarshall Brink PTANOMS CI PTStart: 07-10-2024 End: 75-77-6062kwonkxkhufNnuhovek Brink PTANOMS CI PTComment on above:Acute pain of left knee (Primary Dx); History of fall; Poor balance; Leg weakness, bilateral; Difficulty walking; Foot drop, right foot; History of falling; Left hip impingement syndrome; Right hip impingement syndromeStart: 07-08-2024 End: 21-39-6599Kshldp flowsheetMarshall Brink PTANOMS CI PTStart: 07-08-2024 End: 98-68-2236Gtijkt flowsheetMarshall Brink PTANOMS CI PTStart: 07-08-2024 End: 65-76-6544Dubunjpwt encounterJr. Perry Garay DO Work Phone: noms SWS ORTHOComment on above:DentistStart: 07-08-2024 End: 02-04-3676geysyfptjvJjgezzvi Brink PTANOMS CI PTComment on above:Acute pain of left knee (Primary Dx); History of fall; Poor balance; Foot drop, right foot; Difficulty walking; Leg weakness, bilateral; History of falling; Left hip impingement syndrome; Right hip impingement syndromeStart: 07-03-2024 End: 22-16-7713Jgesnr flowsheetPatti Tatterseldon PTANOMS CI PTStart: 07-03-2024 End: 48-75-5714Kpmpqt flowsheetMarisaiah Tatterseldon PTANOMS CI PTStart: 07-03-2024 End: 84-51-4339zxlgwvpfyzJlvgfr Tattersall PTANOMS CI PTComment on above:Acute pain of left knee (Primary Dx); History of fall; Poor balance; Foot drop, right footStart: 07-02-2024 End: 70-49-6431whjqmstarsYiwlqq SpringerFacility:FTMCStart: 07-02-2024 End: 22-99-1396Rvdc [facility] Start: 06-24-2024 End: 24-80-8227uahwolgzjyWcolmxbp A. JonesFacility:FTMCStart: 06-24-2024 End: 13-38-7840Htfd ManagementBert Huang [facility] Start: 06-17-2024 End: 58-88-0641Yjjbzpw encounter procedureBert Huang [facility] Start: 06-17-2024 End: 07-42-0811xtyznkqgcsBzpdlvxa A. JonesFacility:FTMCStart: 06-17-2024 End: 84-36-1725Yrik ManagementBert Huang [facility] Start: 06-13-2024 End: 41-38-9357mkmjqavblxIivhdmvtfMain Campus Medical Center Work Phone: Start: 06-13-2024 End: 86-32-1121Ugljhog encounter procedureMaria Teresa [facility] Work Phone: Start: 06-12-2024 End: 98-19-9917hcasgrprigXYUSJLGU E PERRYFacility:EU BellevueStart: 06-12-2024 End: 82-43-4311Ihstrmf encounter procedureJENNIFER E NINA [facility] start: 05-22-2024 End: 95-57-4665Jxhmmz outpatient visit 25 minutesMarisol Connors MD Work Phone: [facility]kadlec regional [facility] centerComment on above:Arteriosclerosis of coronary artery (Primary Dx); Essential hypertension; Dyslipidemia; Status post coronary angioplasty; BMI 31.0-31.9,adult; Former smoker; At risk for falls; Idiopathic peripheral neuropathyStart: 05-07-2024 End: 62-62-6205jonbfadpokBhzmysrgyAC[facility] Work Phone: Start: 05-07-2024 End: 50-48-0062Gojkutw encounter procedureMaria [facility]ician [facility] Work Phone: Start: 05-02-2024 End: 98-01-9458bujgmuunpuNPQZCQBK BALLFacility:FTMCStart: 05-02-2024 End: 46-19-1899Yuck [facility] Start: 34-82-2869Jls-patient / Non-visitMaria [facility] Work Phone: Start: 04-28-2024 End: 14-47-5665jkewzgobojMqijisgceACMC Healthcare [facility] Work Phone: Start: 04-28-2024 End: 29-84-3951Jbebkfa encounter procedureFirelands Physician Group-[facility] Work Phone: Start: 03-14-2024 End: 27-44-1421gvzriompakAC-C Stephenie BarriosFacility:FTMCStart: 03-14-2024 End: 37-81-7049Flmk [facility] Start: 01-25-2024 End: 04-45-6682ecwxzotcqwZO-C Stephenie BarriosFacility:FTMCStart: 01-25-2024 End: 03-05-8515Uuya [facility] Barrios [facility] Start: 01-18-2024 End: 08-44-6262ofnphqdtzgNvlxyvutfMain Campus [facility] Center Work Phone: Start: 01-18-2024 End: 07-40-7970Fojkvpp encounter procedureFirelands Physician Group-[facility] Work Phone: Start: 01-09-2024 End: 97-78-9478zhjgqghxzsLljlnfmt A. JonesFacility:FTMCStart: 01-09-2024 End: 76-43-0131Atne ManagementBert Huang [facility] Start: 12-31-2023 End: 18-66-3529unozsxygkhToljpftjtMain Campus Medical Center Work Phone: Start: 12-31-2023 End: 59-56-1117Ixmtssi encounter procedureFirelands Physician Group-[facility] Work Phone: Start: 22-58-5584Olf-patient / Non-visitFirelands Physician Group-[facility] Work Phone: Start: 12-14-2023 End: 91-98-1952nffdnhytyhElyazan R WATERSFacility:EU BellueStart: 12-14-2023 End: 34-71-2592Yrtpyzx encounter procedureHomero XAVIER [facility] [place] start: 12-11-2023 End: 65-49-5122xzslvdlcymWRIAZZPI E PERRYFacility:EU ueStart: 12-10-2023 End: 17-31-9827wahumkacihSOOmariC Stephenie BarriosFacility:FTMCStart: 12-10-2023 End: 16-91-8289Ezmg [facility] [employer] [facility] Start: 11-28-2023 End: 78-47-0417hdayajspkzHjpraojr Ball Other [employer]i [employer] Other Start: 44-64-5023Xyupvllgs encounterBendaxa Hall Medical ClinicStart: 11-14-2023 End: 90-89-6657Ynamcw outpatient visit 25 minutesMarisol Connors MD Work Phone: [facility] FacilityComment on above:Arteriosclerosis of coronary artery (Primary Dx); Status post coronary angioplasty; Dyslipidemia; Essential hypertension; Obesity (BMI 30.0-34.9); At risk for fallsStart: 11-09-2023 End: 80-80-1684uixmgxpkykLLBao BarriosFacility:FTMCStart: 11-09-2023 End: 26-13-5320Mxsh [facility] ClareAgilvax [facility] Start: 10-23-2023 End: 00-42-9850xbnphjdvnyHeialsce Ball Other [employer] Other Start: 51-87-5017Hspoxj outpatient visit 25 minutes [facility] ClinicStart: 10-23-2023 End: 30-59-4207Xpjxwln encounter procedureFirmarkells Physician Group-[facility] Work Phone: Start: 10-08-2023 End: 18-77-0265hpdnmierfxWyadft D GoldnerFacility:FTMCStart: 10-08-2023 End: 07-96-5395Ospc ManagementJoshnicol D Laura [facility] Start: 09-14-2023 End: 95-61-2815iwmtzhcfrdEBWEYOEM BALLFacility:FTMCStart: 09-14-2023 End: 34-44-2663Xfhj [facility] Start: 09-04-2023 End: 02-07-2091zmkzvxekvoNrqbek Manuel SorensonnerFacility:FTMCStart: 08-28-2023 End: 13-80-3580fmjctcxficAbkpyz D DeltanerFacility:FTMCStart: 08-07-2023 End: 04-99-2249xxqtwcmufwFrfhuu D DeltanerFacility:FTMCStart: 08-07-2023 End: 58-41-6217Nanj ManagementJoshnicol D Laura [facility] Start: 05-11-2023 End: 71-77-8339Ogun [facility] Barrios [facility] Start: 05-03-2023 End: 26-15-0726sgonkqenpkJzehduzf Ball Other [facility] [employer] Other Start: 72-17-3689Rmctxxgit encounterDorothy HallThe Christ Hospitaltart: 05-01-2023 End: 55-16-1670pyglupaozyYcesnzqe Ball Other [employer]Ret[employer]i [employer] Other Start: 05-71-5688Aiaticgnd encounterBeraiza Hall [facility] ClinicStart: 05-01-2023 End: 60-80-8542Krqo Elaine Sanchez [facility] Start: 04-30-2023 End: 79-52-6560wvxvcmdvylEstaskug Ball Other [facility] [employer] Other Start: 23-99-1646Gldsxqq encounter procedureDorothy Hall [facility] ClinicStart: 03-19-2023 End: 10-02-8297Olmx HollyStephenie Barrios [facility] Start: 03-14-2023 End: 19-88-8643usmdtawzhgDFLee Ann CONNORSFacility:T9Cxhom: 03-12-2023 End: 47-12-2399fjtkcuardwEHShea PETERSONIMFacility:M2Wbssm: 03-12-2023 End: 47-57-1040Qceh Elaine Sanchez [facility] Start: 66-67-5838KTS, Provider: Marisol Connors, Status: Pen, Time: 9:50 AMBenjamin E Ball Work Phone: [phone]-UvbypL[facility]-Maribeth 250 DO Work Phone: Start: 00-43-4151Jjoraa outpatient visit 25 minutes Dorothy E Ball Work Phone: [phone]-Qcihj [facility]Maribeth 250 DO Work Phone: Start: 01-17-5431xsqhykyilpYxcuiq Ibrahim Facility:[id number]: 00-55-4261Gt RenewalBenjamin E Ball Work Phone: [phone]-KnhcdShriners Children'S Twin Citiesusky 250 DO Work Phone: Start: 02-21-2023 End: 50-42-8836vwgjpetwsoSpqohcg Blades Other [facility] [employer] Other start: 36-06-6221Bkldbr outpatient visit 15 minutes Allisno BladesFPG [facility] NeurosurgeryStart: 01-10-2023 End: 39-51-6230shhyzficzzFA DOCTOR MISCFacility:E1Ocxjx: 01-01-2023 End: 08-16-6564pkolflspbtBBBNU VUCETIC Other [facility] Other Start: 44-72-6460Jpebxm outpatient new 45 minutesHENRY VUCETICLakeHealth Pain Management Wlby PPNStart: 11-29-2022 End: 60-18-8086kfphsxbumwXmxslsq Blades Other [facility] [employer] Other start: 26-43-3615Utvfay outpatient new 45 minutes Allison BladeboubacarFPG [facility] NeurosurgeryStart: 17-70-3307Lfkpcgali encounter Allison BladesFPG Referral CoordinatorStart: 11-28-2022 End: 18-51-0902Hfnjpdp encounter procedureJENNIFER E NINA [facility] start: 11-15-2022 End: 82-34-3476iwzjrzkhrbFvsgdnpe Ball Other [facility] [employer] Other Start: 58-24-9724Yxgxqperp encounterBeraiza Hall Medical ClinicStart: 11-14-2022 End: 84-15-4551tuycgarlbcER DOROTHY BALLFacility:B3Depli: 42-97-6248Ht Renewal Dorothy Hall Work Phone: [phone]-Knkjz [facility] 250 DO Work Phone: Start: 41-85-5015Hrolar outpatient visit 25 minutes Dorothy Hall Work Phone: [phone]-Skcuohatxr-Door 250 DO Work Phone: Start: 24-51-4241rljbzkyynrVvkvwi Ibrahim Facility:[id number]: 05-30-2022 End: 91-24-4064Ewwrswl encounter procedureGoldy Alberto Jr. [facility] start: 05-11-2022 End: 88-57-5793Atzexwa encounter procedureGoldy Alberto Jr. [facility] Start: 05-09-2022 End: 78-51-5675Mmuhrtc encounter procedureGoldy Alberto Jr. [facility] start: 04-25-2022 End: 86-46-8607Fdeosfdsa department patient visitDr. Dorothy Hall Facility:UHCStart: 04-07-2022 End: 28-78-3097drvwlmookeYX MARISOL CONNORSFacility:D0Rpqwv: 45-31-1544Jiwuiw outpatient visit 25 minutesDorothy Hall Work Phone: [phone]-Arhdj [facility] 250 DO Work Phone: Start: 04-77-9284paputjlgvsBjxadf Ibrahim Facility:[id number]: 34-07-6453Wf Yvon Connors MD Work Phone: [facility] 250 DO Work Phone: Start: 29-94-8788Lj Yvon Connors MD Work Phone: [facility] 250 DO Work Phone: Start: 37-26-9001Lc Yvon Connors MD Work Phone: [phone]-Rxplh [facility] 250 DO Work Phone: Start: 04-11-2018 End: 75-01-2334Kneeffatpf and management of inpatientNNAZARETH H[facility]ITAL E [facility] Avistatart: 64-49-1614YjhjcbxgtuHYPike County Memorial Hospitaltart: 04-10-2018 End: 94-87-2748NljehibekoWESaint Luke's [facility] Procedures DateProcedureProcedure DetailPerforming ClinicianStart: 06-02-2025 End: 45-40-9726Rgbfxpdhukirxp aspir&/inj major jt/bursa w/o usMamonique BOTELLO Work Phone: Start: 06-02-2025 End: 81-79-3724Aekgv shoulder complete minimum 2 viewsFatoumata BOTELLO Work Phone: Start: 04-98-4614Cmpus metabolic panel calcium total Mikie Mcleod MD Work Phone: Start: 53-86-4626Ucinu metabolic panel calcium total Mikie Mcleod MD Work Phone: Start: 43-62-7277Nbyhqydvc serum plasma/whole blood Amira Howe PA-C Work Phone: Start: 04-27-2025 End: 51-24-6909Tcgkc metabolic panel calcium totalMikie Mcleod MD Work Phone: Start: 60-76-0167JQBRL TUBESMikie Mcleod MD Work Phone: Start: 94-71-7604TJEQI TUBES PST TOPMikie Mcleod MD Work Phone: Start: 92-62-7210Yhiid metabolic panel calcium total Mikie Mcleod MD Work Phone: Start: 16-40-9030Lngib metabolic panel calcium total Mikie Mcleod MD Work Phone: Start: 57-24-9635Tehxaqeafp exam swallow function contrast studyAbul Tee Tran MD Work Phone: Start: 73-87-1095Ikfzx dip stick/tablet rgnt auto w/o microscopyMikie Mcleod MD Work Phone: Start: 51-75-4482PTL VIDEO MONITORINGPakendrick Evans MD Work Phone: Start: 22-67-6584WRNXPPVJEUY IN PROCESS EEG TESTING Latonya Goodrich MD Work Phone: Start: 47-22-4749Cmdtc of ammoniaZagail Goodrich MD Work Phone: Start: 25-67-2318Shxctqpbecu up to 1 hour physician/qhp timeAbul Tee Tran MD Work Phone: Start: 92-42-9900QQM VIDEO MONITORINGPakendrick Evans MD Work Phone: Start: 81-41-7057CJWRuuzw Al WALTERS Work Phone: Start: 33-19-5239Tuqhpskzgiyta metabolic panelAbul Tee Tran MD Work Phone: Start: 71-68-6842YBRQB OXIMETRY, SPOTAbul Tee Tran MD Work Phone: Start: 58-79-5853Tbv routine ecg w/least 12 lds w/i&r Marisol Connors MD Work Phone: Start: 45-27-8374Owiikgberq examination knee 1/2 views Jr. Perry Garay DO Work Phone: Start: 21-90-6973Pmfpx anesthetic sacral epidural blockAmanotilia [employer] comment on above:60% reliefStart: 42-71-4040Iybaqyxl insertion of temporary spinal cord stimulator electrodeAmanotilia [employer] comment on above:60% reliefStart: 51-94-3270Yhflibpso of sacroiliac joint using fluoroscopic guidancePrairieville [employer] comndza on above:90% relief for 4 hrsStart: 10-08-2023 Radiofrequency ablation of nerve root of lumbar spine using fluoroscopic guidancePrairieville [employer] comashf on above:Bilateral L3/4+L4/5- no reliefStart: 24-14-9708Dtrrnxapw of facet joint using fluoroscopic guidancePrairieville [employer] comment on above:Bilateral L3/4, L4/5 MBB-80% relief for 1 dayStart: 33-33-3345Ffsuokilp of facet joint using fluoroscopic guidance Stephenie Barrios comupaz on above:BL L3/L4 L4/L5 MBB 85% Relief x 4 hoursStart: 37-34-5541Tngzg anesthetic sacral epidural blockJorubi Sanchez comchuh on above:Caudal john 50% reliefStart: 05-01-2023 Injection of facet joint using fluoroscopic guidancePrairieville [employer] comtrvf on above:bilateral 75% relief for 2 hoursStart: 55-26-7891Swahzjlfu of facet joint using fluoroscopic guidancePrairieville [employer] combuvq on above:pt changed amt of relief to 80% x 4 hr.bilat L3/4 MBB- 50% relief x 4 hrStart: 05-54-6130Yuajfdezh of therapeutic substance into bladder wallJENNIFER NINA Start: 33-69-3412MfyuiaakpbptgsHmwnym Smith Jr. start: 84-28-0157Zjqwapikkitrlrnnp with dilation of urethral strictureGoldy Alberto Jr. start: 30-21-1708Cvhypckz extraction and insertion of intraocular lensGoldy Alberto Jr. start: 46-47-3598Xgcbmuuhmmzkd prostatectomyGoldy Alberto Jr. start: 78-22-1287Hzgcjznxvzfzlkoaf with dilation of urethral strictureGoldy Alberto Jr. start: 13-03-9312ohgr surgery Patricio Alberto Jr. Comment on above: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3Smffc: 10-16-2019 back surgery 10Amanda [employer] Comment on above:due to stenosis at S2Aipnr: 10-16-2019 back surgery 11Amanda [employer] Comment on above:due to stenosis at F4Ejmcr: 10-16-2019 back surgery 3Amanda [employer] Comment on above:due to stenosis at I7Knutt: 10-16-2019 back surgery 4Amanda [employer] Comment on above:due to stenosis at B7Ppftp: 10-16-2019 back surgery 5Bib Sanchez Comment on above:due to stenosis at N6Gpert: 10-16-2019 back surgery 7Amanda [employer] Comment on above:due to stenosis at C6Qhuya: 10-16-2019 back surgery 8Amanda [employer] Comment on above:due to stenosis at F5Szpuh: 10-16-2019 back surgery 9Amanda [employer] Comment on above:due to stenosis at S6Skxvf: 06-16-2019 Placement of stent in cardiac conduitGoldy Alberto Jr. start: 23-51-2651Awatpxd of placement of stent for coronary artery diseaseH/O heart artery stentComment on above:PCI/stent RCA PCI/stent RCA - 06/2019Start: 46-14-2878JTBFOCDVK SPIROMETRY RTBO YOOStart: 12-82-9853CHM TIDAL CO2 CONTINUOUSBO YOOStart: 30-65-0679UWCQCPMPS SPIROMETRY RT ANG YOOStart: 44-56-1171EJBDZISI OXYGEN THERAPY PROTOCOLBO YOOStart: 04-13-2018 PULSE OXIMETRY, CONTINUOUSBO YOOStart: 24-20-3970IFIHCHKHY PATIENTBO YOOStart: 93-59-3886CERTIHLRE SPIROMETRY RTBO YOOStart: 47-48-5122NZJ TIDAL CO2 CONTINUOUS ANG YOOStart: 83-57-5475IFVOO OXIMETRY, CONTINUOUSBO YOOStart: 77-78-1119BTNBXF AND OUTPUTBO YOOStart: 17-82-4159UYM TIDAL CO2 CONTINUOUSBO YOOStart: 04-13-2018 PULSE OXIMETRY, CONTINUOUSBO YOOStart: 27-87-6169LDSOWYOBE SPIROMETRY RTBO AJ Start: 02-19-6209BPL TIDAL CO2 CONTINUOUSBO YOOStart: 76-04-5324ZAICM OXIMETRY, CONTINUOUSBO YOOStart: 92-87-7497AUEMNJGZS SPIROMETRY RTBO YOOStart: 04-12-2018 INCENTIVE SPIROMETRY RTBO YOOStart: 84-08-2368TRY TIDAL CO2 CONTINUOUSBO AJ Start: 20-64-2933NADCAYDTO SPIROMETRY RTBO YOOStart: 95-25-4801NSJDQ OXIMETRY, CONTINUOUSBO YOOStart: 79-39-0587UQREWXVEZ SPIROMETRY RTBO YOOStart: 04-12-2018 Radex spine lumbosacral 2/3 viewsBO YOOStart: 21-00-3020YJF TIDAL CO2 CONTINUOUS ANG YOOStart: 05-69-3674VFIIEVQLX SPIROMETRY RTBO YOOStart: 06-63-1152VRVZS OXIMETRY, CONTINUOUSBO YOOStart: 60-01-9133QKCENHDDT SPIROMETRY RTBO YOOStart: 30-86-4777QSE TIDAL CO2 CONTINUOUSBO YOOStart: 51-00-8746GNWMSIJMS SPIROMETRY RT ANG YOOStart: 17-47-7923IKDCFIXR OXYGEN THERAPY PROTOCOLBO YOOStart: 04-12-2018 PULSE OXIMETRY, CONTINUOUSBO YOOStart: 00-82-6049ZCH ORDER FOR WALKER OPBO YOOStart: 89-49-1295TCVQDMGXG SPIROMETRY RTBO YOOStart: 85-83-9234Ifsvx count complete auto&auto difrntl wbcBO YOOStart: 74-83-4700AUX TIDAL CO2 CONTINUOUSBO YOOStart: 67-39-4730RZEPY OXIMETRY, CONTINUOUSBO YOOStart: 69-75-3157XLMWO METABOLIC PANEL W/ REFLEX TO MG FOR LOW KBO YOOStart: 43-72-6371OLFNTSUF REMOVAL ANG YOOStart: 16-07-1589IBQWB WEIGHTSBO YOOStart: 54-77-0078XLGNCZ AND OUTPUTBO YOOStart: 13-77-4620DT EVAL AND TREATBO YOOStart: 52-85-9589VO EVAL AND TREATBO YOOStart: 18-95-8527LPQJPOLK TOLERATEDBO YOOStart: 50-70-6527DAITCXDU PATIENT ANG YOOStart: 21-12-9006BTD TIDAL CO2 CONTINUOUSBO YOOStart: 90-34-0880NTOFD OXIMETRY, CONTINUOUSBO YOOStart: 85-29-1211PRIOWXXQL SPIROMETRY RTBO YOOStart: 38-89-1957NKJ TIDAL CO2 CONTINUOUSBO YOOStart: 80-51-5823PRQUVKMYM SPIROMETRY RT ANG YOOStart: 70-77-3040GUHAO OXIMETRY, CONTINUOUSBO YOOStart: 04-11-2018 INCENTIVE SPIROMETRY RTBO YOOStart: 14-07-9776COII GENERALBO YOOStart: 14-48-9935MPY TIDAL CO2 CONTINUOUSBO YOOStart: 57-14-5511XUROUNNVJ SPIROMETRY RT ANG YOOStart: 41-00-6038OWPPT OXIMETRY, CONTINUOUSBO YOOStart: 78-79-4775PAS TIDAL CO2 CONTINUOUSBO YOOStart: 84-69-0660TMLQJGQV YOOStart: 17-46-0003OW CONSULT TO SOCIAL WORKBO YOOStart: 10-04-7380CTZJWQIN IV ACCESSBO YOOStart: 94-49-1440FVLRANE COMMUNICATIONBO YOOStart: 82-74-3626DXTDE INTERMITTENT PNEUMATIC COMPRESSION DEVICEBO YOOStart: 72-35-8515AETQKAKY INDWELLING CATHETHER ANG YOOStart: 32-16-4995MAZIMUXLG SPIROMETRY RTBO YOOStart: 34-48-5973WBDMQRDT OXYGEN THERAPY PROTOCOLBO YOOStart: 78-08-4215WXIYF/VASCULAR CHECKSBO YOOStart: 15-33-8434OWRKR OXIMETRY, CONTINUOUSBO YOOStart: 81-55-0769JNGEKUX CESSATION EDUCATIONBO YOOStart: 39-15-3401HROLE CAREBO YOOStart: 05-42-6935YFVJDBQ DIET TOLERATED (NURSING COMMUNICATION)ANG YOOStart: 36-74-0164UOTFWQJ HOBBO YOOStart: 07-39-0353GNFX CODEBO YOOStart: 13-66-7342KQVNED AND OUTPUTBO YOOStart: 01-95-7296ZYMRRS PHYSICIAN (SPECIFY)ANG YOOStart: 18-79-6112IILWW SIGNSBO AJ Start: 78-44-0572FZTGFCBKY MONITORINGBO YOOStart: 61-76-5606QFXJE METABOLIC PANEL W/ REFLEX TO MG FOR LOW KBO YOOStart: 72-66-4012Oqfiy count complete automatedBO YOOStart: 50-48-3799UZLHSTI STATUS (FROM ED OR OR/PROCEDURAL)ANG AJ Start: 87-20-5438JDXPYZCN PATIENTBO YOOStart: 79-71-7940BESKAQ FOR SURGICAL PROCEDURESBO YOOStart: 47-04-7521AILQHQED PATHOLOGYBO YOOStart: 87-01-3937Jmltq metabolic panel calcium totalBO YOOStart: 22-54-3943Njkacmmfsuw timeBO YOOStart: 42-73-1415PQPD AND SCREENBO YOOStart: 62-17-0282Tidna count complete automated ANG YOOStart: 37-48-3432HDWYY RT REFLEX TO CULTUREBO YOOStart: 97-77-8930Pox prsmptv pthgnc organism scrn w/colony estimjBO YOOStart: 12-38-3148Xljlb entir thrc lmbr crv sac spi w/skull 2/3 vwBO YOOStart: 21-41-4393OLC 12-LEADBO AJ Start: 10-58-0971ljxnirvp hernia repairGoldy Alberto Jr. start: 00-50-7111Fooljuurjxgkg prostatectomyGoldy Alberto Jr. start: 94-63-7427BetjlfjdtaZkaesk Smith Jr. start: 06-71-9455Unixu ablation of prostateGoldy Alberto Jr. start: 51-50-4027Wzruulohqv studiesGoldy Alberto Jr. arthroplasty of kneeBenjamin E Ball Work Phone: Arthroscopy of Jose Connors MD Work Phone: Arthroscopy of Fidencio Alberto Jr. back structure, excluding neck (body structure)Goldy Alberto Jr. cardiac catheterizationMarisol Connors MD Work Phone: Cataract surgeryBendaxa Hall Work Phone: Extraction of cataractGoldy Alberto Jr. Hernia repairMarisol Connors MD Work Phone: History of placement of stent for coronary artery diseaseH/O heart artery stentProcedure on backMarisol Connors MD Work Phone: Release of trigger fingerGoldy Alberto Jr. TonsillectomyMarisol Connors MD Work Phone: Plan of Treatment DateCare ActivityDetailAuthorStart: 89-12-2574RImZ/Tdap/Td Vaccines (3 - Td or Tdap)DTaP/Tdap/Td Vaccines (3 - Td or Tdap)[facility] Start: 18-13-2351EDsB/Tdap/Td Vaccines (2 - Tdap)DTaP/Tdap/Td Vaccines (2 - Tdap)[facility] [place]Start: 01-28-2026 End: 95-35-5925Hgbxlmv encounter amkekmzrg05/26/2026 9:30 AM EDT Office Visit [place] [address] [facility] [address] [place] [address] Marisol Connors MD [address] [facility] [address] [place] [address] [facility]: 11-11-2025 End: 21-39-4996Xjdhdlt encounter procedureNOMS SWS ORTHOStart: 09-04-2025 End: 69-25-7132Tyjgcrv encounter procedureNOMS NB OPHTStart: 07-22-2025 End: 23-68-1902Umfnyup encounter oayywviab34/17/2025 9:30 AM EDT Office Visit [facility] [address] [place] [id number] Carlos Obrien, DO [address] [place] [address] ArrivedNOMS [facility] EyeComment on above:ArrivedStart: 81-95-9537Amivxpqgj vaccinationInfluenza Vaccine (#1)[facility]: [facility]17[facility]2025 End: 44-91-0741Mpufa 1996 panel - Serum or PlasmaLipid Panel Lab Routine Arteriosclerosis of coronary artery Dyslipidemia Expected: 06/17/2025 (Appro ximate), Expires: 06/17/2026[facility] Service Area Work Phone: Comment on above:Expected: 06/17/2025 (Approximate), Expires: 06/17/2026Start: 06-17-2025 End: 22-48-1153Azwejfc encounter arwavprxi87/13/2025 9:30 AM EDT Office Visit [place] [address] [facility] [address] [place] [phone] Marisol Connors MD [address] [facility] [address] [place] [address] [facility] FacilityStart: 06-02-2025 End: 20-16-5293Ylbbovy encounter mkyljtipq28/29/2025 9:45 AM EDT Office Visit [facility] [address] [place] [phone] Fatoumata Montes PA [address] [place] [address] Acute pain of left knee (Primary Dx)[facility] Comment on above:Acute pain of left knee (Primary Dx)Start: 06-25-2025Medicare Annual Wellness VisitMedicare Annual Wellness Visit (AWV)[facility]: 11-12-2024 End: 80-86-2405Ihtcifn encounter procedureNOMS SWS ORTHOComment on above:Arrived Start: 08-14-2024 End: 75-88-3307brnchezeecXQAS CI PTComment on above:ArrivedStart: 08-11-2024 End: 31-18-4185jicxjigcfuVQRL CI PTComment on above:Acute pain of left knee (Primary Dx); Poor balance; History of fall; Difficulty walking; Leg weakness, bilateral; Foot drop, right foot; History of fallingStart: 08-07-2024 End: 93-62-9290rzvdhysiwo17/03/2024 10:00 AM EDT Treatment [facility] [address] [facility] [address] [place] [address] Jenny Alas, ACTUARIAL MANAGER [facility] CI PTStart: 08-05-2024 End: 73-46-3824avjtksbvqy57/01/2024 10:00 AM EDT Treatment [facility] [address] [facility] [address] [place] [address] Jenny Alas, ACTUARIAL MANAGER [facility] CI PTStart: 07-31-2024 End: 93-71-2672eafattzvff33/26/2024 11:00 AM EDT Treatment [facility] [address] [facility] [address] [place] [address] Maryse Fulton ACTUARIAL MANAGER [facility] CI PTStart: 07-29-2024 End: 99-32-8975cunnpkcghp39/24/2024 10:00 AM EDT Treatment [facility] [address] [facility] [address] [place] [address] Jenny Alas, ACTUARIAL MANAGER [facility] CI PTStart: 07-24-2024 End: 22-51-5331mezuznmdgs16/19/2024 10:00 AM EDT Treatment [facility] [address] [facility] [address] [place] [address] Jenny Alas, ACTUARIAL MANAGER [facility] CI PTStart: 07-22-2024 End: 95-81-5372qyxqxthljdRUBV CI PTComment on above:Acute pain of left knee (Primary Dx); History of fall; Poor balance; Difficulty walking; Leg weakness, bilateral; Foot drop, right foot; History of falling; Left hip impingement syndromeStart: 07-17-2024 End: 52-96-5032skoemqshngARCO CI PTComment on above:Acute pain of left knee (Primary Dx); History of fall; Poor balance; Leg weakness, bilateralStart: 07-15-2024 End: 90-20-8981enptyfqtirYMUB CI PTStart: 07-15-2024 End: 61-22-1090Tfeyiwj encounter procedureNOMS [place] STATE ROUTEComment on above:ArrivedStart: 07-10-2024 End: 57-99-1065olvgmpohal90/05/2024 9:00 AM EDT Treatment [facility] [address] [place] [address] Brink, Jenny, ACTUARIAL MANAGER [facility] CI PTStart: 07-08-2024 End: 62-34-2105ljglndughkOOAT CI PTComment on above:ArrivedStart: 07-06-2024 COVID-19 Vaccine ( season)COVID-19 Vaccine ( season) [facility] [place]Start: 14-68-2497Pyektrffy vaccinationInfluenza Vaccine (#1)[facility] HealthcareStart: 05-22-2024 End: 10-04-3924Qgmizqe encounter /18/2024 9:50 AM EDT Office Visit [facility] [address] [facility] [address] [place] [address] Marisol Connors MD [address] [facility] [address] [place] [address] [facility]: [id number], Provider: Marisol Connors, Status: Pen, Time: 9:50 AMFUV, Provider: Marisol Connors, Status: Pen, [facility]: 9:50 [facility] DO Work Phone: Start: [phone]-19 Vaccine ( season) COVID-19 Vaccine ( season)[facility] [place]: [id number], Provider: Marisol Connors, Status: Pen, Time: 9:50 AMFUV, Provider: Marisol Connors, Status: Pen, Time: 9:50 ENQJ-Uxqyjdvxpp-Strzdmjh 250 DO Work Phone: Start: 18-12-5219QCIQJ-19 Vaccine (4 - Pfizer series) COVID-19 Vaccine (4 - Pfizer series)[facility]: [id number], Provider: Marisol Connors, Status: Pen, Time: 9:40 AMFUV, Provider: Marisol Connors, Status: Pen, Time: 9:40 AMMP-[facility] 250 DO Work Phone: Start: [phone], Provider: Marisol Connors, Status: Pen, Time: 1:20 PMFUV, Provider: Marisol Connors, Status: Pen, Time: 1:20 PMMP-[facility] 250 DO Work Phone: Start: [phone], Provider: Marisol Connors, Status: Pen, Time: 10:30 AMFUV, Provider: Marisol Connors, Status: Pen, Time: 10:30 AMMP-[facility] 250 DO Work Phone: Start: [phone] High Risk: (Elderly (60+) or Population) (1 - 1-dose 75+ series)RSV High Risk: (Elderly (60+) or Population) (1 - 1-dose 75+ series)[facility] [place] Start: [id number] mellitus screeningDiabetes ScreeningTrumbull Regional Medical Center: [phone] patients and/or patients aged 60+ years (1 - 1-dose 60+ series)RSV patients and/or patients aged 60+ years (1 - 1-dose 60+ series)[place] [facility]: 72-17-5874Jiekqq Vaccines (1 of 2)Zoster Vaccines (1 of 2)[facility]: 05-60-2943Qncicmehp C screeningHepatitis C Screening [facility]: 18-43-0563Msdzd panelLipid Panel [facility]: 1946Medicare Annual Wellness Visit Medicare Annual Wellness Visit (AWV)[facility] [place] Comprehensive metabolic 1999 panel - Serum or [facility] 1999 panel - Serum or [facility] Immunizations Immunization DateImmunizationNotesCare YfqfcetbOicnwwkj07-90-3779nfzhsirjb, high dose seasonal, preservative-freeDoctors Hospital12-20-2024 influenza virus vaccine, unspecified formulationJr. Stepanic DO Work Phone: [facility] CenterVfvcdmlnnd87-49-7772mwsbxpivo virus vaccine, unspecified formulationPatrick XAVIER [facility]10-23-2022Pfizer COVID-19 Vac Bivalent 30 MCG/0.3ML Intramuscular SuspensionBenjamin E Ball Work Phone: [facility]10-10-2022Fluzone High-Dose Quadrivalent 0.7 ML Intramuscular Suspension Prefilled SyringeBenjamin E Ball Work Phone: [phone]-EjumwFairview Range Medical Center 250 DO Work Phone: [phone]oynzq virus vaccine, unspecified formulationJENNIFER NINA [facility]10-10-2022influenza, high dose seasonal, preservative-freeBenjamin Ball Other [facility] [employer] Other 11746988-91-6599Nzlreo-GajUFowq COVID-19 Vacc 30 MCG/0.3ML Intramuscular SuspensionBenjamin E Ball Work Phone: [facility]11-29-2021SARS-CoV-2 (COVID-19) Ad26 vaccine, Nino Alberto Jr. [facility] 08117145-14-3311Cvfrjmk High-Dose Quadrivalent 0.7 ML Intramuscular Suspension Prefilled SyringeBenjamin E Ball Work Phone: [facility] CenterNnqqfzphmt64-49-1256xjdytfiks virus vaccine, unspecified formulationJEAVE WOOD [facility]08-01-2021influenza virus vaccine, unspecified formulationGoldy Alberto Jr. [facility] 03-562842-44-7401Hdfwjg-BioWJqsq COVID-19 Vacc 30 MCG/0.3ML Intramuscular SuspensionMarisol Connors MD Work Phone: [facility]03-23-2021SARS-CoV-2 (COVID-19) Ad26 vaccine, recombinantDonjorje Alberto Jr. [facility] 03-773958-30-7664PUSLP-99 Vaccine Pfizer - Documentation Purposes OnlyBenjamin Ball Other [facility]03-01-2021SARS-CoV-2 (COVID-19) mRNA-1273 vaccineMeekjorje Remy Lang. [facility] [id number]-FoxGUwuf COVID-19 Vacc 30 MCG/0.3ML Intramuscular SuspensionBenjamin E Ball Work Phone: [facility]01-04-2021diphtheria, tetanus toxoids and pertussis vaccineBenjamin E Ball Work Phone: [phone]-KqubjFairview Range Medical Center 250 DO Work Phone: [phone]agbd virus vaccine, unspecified formulationMarisol Connors MD Work Phone: [facility]08-28-2020influenza virus vaccine, unspecified formulationJENNIFER NINA [facility]10-15-2018influenza virus vaccine, unspecified formulationJENNIFER NINA [facility] [place] 662970-15-2018Seasonal trivalent influenza vaccine, adjuvanted, preservative freeBenjamin E Ball Work Phone: [phone]-XvetkNich[place] [address] DO Work Phone: [phone]obenr virus vaccine, unspecified formulationMarisol Connors MD Work Phone: [phone]-VnjjlNich[place] [address] DO Work Phone: [phone]yjoztdxjt conjugate vaccine, 13 valent Dorothy E Ball Work Phone: [facility] [place] 662970-13-2017influenza virus vaccine, unspecified formulationJENNIFER NINA [facility] [place] 662970-13-2017influenza, high dose seasonal, preservative-freeBenjamin E Ball Work Phone: [phone]-KxxnwNich[place] [address] DO Work Phone: [phone]nirsg, injectable, quadrivalent, preservative freePatti Miranda Jeanes HospitalSrelksqmpl08-50-9686yznsfuegrpxt polysaccharide vaccine, 23 valentHladarius Connors MD Work Phone: [phone]-TofmsNich[place] [address] DO Work Phone: [phone]b virus vaccine, unspecified formulationJENNIFER NINA [facility]10-01-2016influenza virus vaccine, unspecified formulationALANIS WOOD [facility]10-01-2016influenza, injectable, quadrivalent, preservative freeBenjamin E Ball Work Phone: [facility] CenterHdlbmifsfy78-39-7066skryevawlyaf polysaccharide vaccine, 23 valentBenjamin E Ball Work Phone: [facility] Payers DatePayer CategoryPayerPolicy [id number] Health [id number] MedicaidAETNA MEDICARE ADVANTAGE Member Subscriber Plan / Payer (Effective 2023-Present) Name: Edvin Roland Relation to Subscriber: Self Name: Edvin Roland Payer ID: 1 (NAIC) Type: Not on file Address: [address] [place] [id number] 2022Medicare [id number] 2022Medicare (Managed Care)AETNA MEDICARE ASSURE [id number] 2022Medicare [facility] [id number] 2018Medicare [id number] 2.160.0.547627.48798432-65-9850Filrbdx [id number] 2.0.1.676346.3.579.[id number] 2.160.1.245507.3.579.2.7[id number] 2.160.1.139394.3.579.2.54052-27-3201Fwxepsj073740303 2.16840.1.330399.3.579.2.74897-28-6237Hrqcpjd8139258 2.16840.1.917442.3.579.2.02440-73-8701Hopqatt7288969 2.16840.1.571691.3.579.2.97781-23-2113Lxharbx6847307 2.16840.1.055245.3.579.2.43042-50-7418Pmjdvcx8234376 2.16840.1.705653.3.579.2.08279-99-1586Uurgpii0400069 2.16840.1.594440.3.579.2.75605-64-9801Iigcqol32228480 2.16.840.1.684226.3.579.2.90111-54-9623Xseappb73830925 2.16.840.1.435436.3.579.2.76938-69-9083Tpxvpgk47133883 2.16.840.1.288677.3.579.2.61490-42-1492Vqjchnh13887636 2.16.840.1.983278.3.579.2.21493-36-5991Eceykzd10232950 2.16.840.1.581876.3.579.2.79125-57-3223Vtryfha59913278 2.16.840.1.910113.3.579.2.13452-06-9335Hasiklr91057639 2.16.840.1.632129.3.579.2.01652-40-5906Ssydcrw67117428 2.16.840.1.772117.3.579.2.00691-02-0804Gmrcxzc17148460 2.16.840.1.037357.3.579.2.99609-97-5486Uodhzla01559652 2.16.840.1.049409.3.579.2.40029-02-2231Nhhcwzw44538638 2.16.840.1.733493.3.579.2.98502-56-8593Rhgerqy53702005 2.16.840.1.293696.3.579.2.05259-80-8261Dltxccr99674971 2.16.840.1.817582.3.579.2.28794-29-3816Cvxwqcr41633302 2.16.840.1.586217.3.579.2.34670-18-9465Wospwpc75534089 2.16.840.1.365394.3.579.2.04288-95-2811Igprrtx32599491 2.16.840.1.346644.3.579.2.60847-75-1282Shqvfvi06133662 2.16.840.1.843368.3.579.2.85486-25-6294Qexwlig81019559 2.16.840.1.754777.3.579.2.99878-98-4466Netqusl10664093 2.16.840.1.913303.3.579.2.13381-45-0363Esmsjph67737098 2.16.840.1.574343.3.579.2.87570-07-1703Qkwpcbl54783855 2.16840.1.952354.3.579.2.69696-64-2586Utdblhe29869870 2.16.840.1.568337.3.579.2.08090-03-2886Ufdudgj05342915 2.16.840.1.546720.3.579.2.64695-13-4528Tplzzvn040609012 2.16.840.1.448613.3.579.2.08899-55-1798Lytlklw130922785 2.16.840.1.374881.3.579.2.72370-91-2741Hmhzpnw127423955 2.16.840.1.954496.3.579.2.144260-29-6851Sgdsbpc228068305 2.16.840.1.390526.3.579.2.870007-17-1878Hhhhxqn741111827 2.16.840.1.275650.3.579.2.666077-60-6634Ejxhjza382377983 2.16.840.1.684270.3.579.2.343019-40-1420Pzgqcvg144764043 2.16.840.1.653558.3.579.2.984404-35-8022Snyefwi243109096 2.16.840.1.779327.3.579.2.160132-30-4796Qgpmdsg921487190 2.16840.1.046983.3.579.2.911911-50-8361Xcdsjrk379840987 2.16840.1.247303.3.579.2.846424-48-3793Wqgesnq778589602 2.16840.1.286236.3.579.2.254913-49-4533Jxvsrvx584342177 2.16840.1.708785.3.579.2.008020-92-4174Rgopvwd070864666 2.16840.1.647947.3.579.2.701500-95-0358Noeuepa511773177 2.16840.1.251743.3.579.2.803563-64-4649Rpzqxtv419198419 2.16840.1.262018.3.579.2.160021-61-2652Ykhebgo653126519 2.16840.1.089933.3.579.2.113353-66-4689Zyjnnhu117134635 2.16840.1.184529.3.579.2.505766-81-5048Pgrfkku328431055 2.16.840.1.878583.3.579.2.423205-43-8897Rokdpqi805594300 2.16840.1.794141.3.579.2.504441-01-8181Oafljbu724070154 2.16840.1.910497.3.579.2.975137-52-0468Ugoaqdb46115847 2.16840.1.554271.3.579.2.61951-17-2391Ffkzijr81938553 2.16840.1.816519.3.579.2.366839-91-2313Lllxxgd51637091 2.16840.1.777999.3.579.2.313351-56-6584Scofdht16818909 2.0.1.459025.3.579.2.893981-23-4504Ljpbkfk32918912 2..1.028256.3.579.2.110202-04-2162Yfzwqdc0492861 2.0.1.613555.3.579.2.397061-15-7490Zfovxub2422621 2.840.1.606315.3.579.2.941494-66-9479Mptjnpr5885512 2.840.1.945964.3.579.2.033288-43-5126Dckngsw0901052 2..1.860382.3.579.2.717426-57-0105Hnegvim6546792 2.840.1.587865.3.579.2.534874-09-9721Xuygelw1204339 2.840.1.161730.3.579.2.863089-06-9638Dlfvyai4114007 2.16840.1.526271.3.579.2.488478-79-9069Nnpglxm7874705 2.16840.1.088651.3.579.2.417151-56-9962Yczjnxa3500764 2..1.272457.3.579.2.351120-66-6323Qzdfyot7048024 2.16.840.1.215472.3.579.2.1259Self-paySelf Pay [id number] Social History DateTypeDetailFacilityTobacco smoking status NHISUnknown if ever smokedSt. Elizabeth Hospital CtrStart: 31-54-8930Mcf Assigned At Memorial Hospitaltart: 11-14-2023 End: 02-58-3360Eiiioz alcohol useSocial alcohol use-[facility] 250 DO Work Phone: Start: 06-16-2019 End: 90-40-7792Edkwzvk smoking statusEx-smoker (finding)[facility] comment on above:pt quit smoking in 1983Start: 11-14-2023 End: 40-78-3824Qsn Assigned At [facility] start: 57-33-1582Hqtacjh smoking statusNeverExecutive [facility] DaytonComment on above:pt quit smoking in 1983Start: 01-01-2023 End: 99-68-3607Dpgqbqw smoking status NHISNever SmokerNorth[facility] Medical Center End: 13-89-6103Rpabwqe of tobacco useCurrent smokerKing[facility] [place] Work Phone: End: 16-99-8775Qhdejfz of tobacco useCigarette SmokerUnTriHealth Bethesda North Hospital Work Phone: Start: 11-14-2023 End: 38-08-1247Yypcbec use and exposureSmokeless tobacco non-userUnTriHealth Bethesda North Hospital Work Phone: Start: 33-56-2810Qmkygri intakeEx-drinker (finding) [facility] Work Phone: Start: 77-94-6259Dsl Assigned At BirthNot on file [facility] Work Phone: Start: 11-04-2023 End: 74-96-6090Egfqqfxc to SARS-CoV-2 (event)Not sureUnTriHealth Bethesda North HospitalStart: 07-15-2024 End: 89-48-5199Aszlhumuq beverage intakeCurrent drinker of alcohol (finding) [facility] Work Phone: Start: 07-92-4353Czzvejl Commentcaffeine 2-3 cups/day [facility] HealthcareStart: 01-13-2022 End: 84-42-6900KqpDszh (finding)[facility] HospitalHas the electric, gas, oil, or water company threatened to shut off services in your home in past 12MoNoProGreene County Hospital Health SystemHow often to you have a drink containing alcohol?4 or more times a weekProGreene County Hospital [employer] SystemHow many standard drinks containing alcohol do you have on a typical day?[address] [place], [place] [address]Refer.com SystemHow often do you have 6 or more drinks on 1 occasion?Less than monthlyWyandot Memorial HospitalIgnite100 SystemStart: 66-92-0562Ahmbfiv CommentSmoked about 2 packs a day in 80Ventura County Medical CenterRefer.com SystemStart: 11-35-7512Wbyzslw Commentdaily [facility] CenterWalk Score SystemStart: 76-10-0269Gjhhfn identityIdentifies as male gender (finding)[facility] CenterWalk Score SystemStart: 35-96-4106Uhvzin orientationHeterosexual (finding)[facility] Medical Equipment Procedure CodeEquipment CodeEquipment Original TextEquipment IdentifierDatesFDA Start: 28-31-6938YL CLOSURE DEVICE EXOSEAL 6FFDAStart: 51-82-4840RISFDFUP EXTRACTION W/ INTRAOCULAR LENS Carlos Obrien DO 11/02/20 Non Biological Eye R {[id number] FDAStart: 33-97-2800SO CLOSURE DEVICE EXOSEAL 6FFDAStart: 50-99-2043YI STENT ADRIANO 4.0 X 12FDAStart: 22-14-2512WJ CLOSURE DEVICE EXOSEAL 6F FDAStart: 38-90-7043ZS STENT ADRIANO 4.0 X 12FDAStart: 18-35-0145VB CLOSURE DEVICE EXOSEAL 6FFDAStart: 18-01-2446EI STENT ADRIANO 4.0 X 12FDAStart: 66-23-5380TL CLOSURE DEVICE EXOSEAL 6FFDAStart: 15-77-5755DE STENT ADRIANO 4.0 X 12FDAStart: 66-01-0460GM CLOSURE DEVICE EXOSEAL 6FFDAStart: 80-14-6033RO STENT ADRIANO 4.0 X 12 FDAStart: 42-72-9438VV CLOSURE DEVICE EXOSEAL 6FFDAStart: 90-86-6778FA STENT ADRIANO 4.0 X 12FDAStart: 52-21-2673Wjctqr Bn Bio 40gm Rpl 580243+848038+344684 - Sna - [id number])[id number])[id number](10)[id number](21)NA, [id number]_imp FDA Start: 68-22-1193Tmhyiyhmx Ptlr 38mm Persona Alply Kn Strl Lf - Sna - [id number]/$$[id number]/SNA, 439264_imp FDAStart: 49-99-1210Ieouop Artc 7-10 G-H 12mm Kn Fx Brng Prlng Nxgn Lpsflx Strl Rpl 330382 + 11422 - Sna - [id number]/$$[id number]/SNA, 439265_imp FDAStart: 00-58-8867Jifzjputj Fem G Kn Rt Cmnt Nxgn Lpsflx Opt Zml Prlng Strl Rpl 070574 + 702813 - Sna - [id number]/$$[id number]/SNA, 439266_imp FDAStart: 05-31-2779Nsysv Tib 83o25lz Nxgn Kn Cmnt Mdlr Stm Prect 8 Tiv Pmma Rpl 49522 + 023308 - Sna - [id number]/$$[id number]/SNA, 439267_imp FDAStart: 32-55-8827BY CLOSURE DEVICE EXOSEAL 6FFDAStart: 06-16-2019 CL STENT ADRIANO 4.0 X 12FDAStart: 13-25-7906EL CLOSURE DEVICE EXOSEAL 6FFDAStart: 90-76-3322OU STENT ADRIANO 4.0 X 12FDAStart: 82-00-0358DR CLOSURE DEVICE EXOSEAL 6F FDAStart: 25-05-0481OY STENT ADRIANO 4.0 X 12FDAStart: 62-75-4265TQ CLOSURE DEVICE EXOSEAL 6FFDAStart: 64-01-8400AY STENT ADRIANO 4.0 X 12FDAStart: 06-16-2019 Goals DatePatient GoalDesired Activity/StatePersonal health goalComment on above: Evaluation of progress towards goal: safe discharge pending clinical progress Functional Status GvwzUskuvgxdzpSbheegWwltmzfc45-87-5390Oqwks score [AUDIT-C]5 04/23/2025 2:56 PM EDT Joyce Butler [facility] HospitalMahcxe85-98-2216Dkymdvtoyl StatusN/[facility]10-23-2024Functional StatusN/[facility]10-15-2024Functional StatusN/[facility]10-08-2024 Functional StatusN/[facility]08-28-2024Functional StatusN/A [facility]08-20-2024Functional StatusN/[facility]08-13-2024Functional StatusN/[facility] 31-28-7571Iplxlryycp StatusN/AExec[facility]06-28-2024Functional StatusN/[facility]05-10-2024 Functional StatusN/[facility]03-22-2024Functional StatusN/A [facility]03-06-2024Functional StatusN/[facility]02-09-2024Functional StatusN/A[facility]02-05-2024Functional StatusN/[facility]01-05-2024Functional StatusN/[facility]12-04-2023 Functional StatusN/[facility]11-10-2023Functional StatusN/A [facility]10-03-2023Functional StatusN/[facility]07-07-2023Functional StatusN/[facility] 16-73-8432Lcvliovlbr StatusN/[facility]05-15-2023Functional StatusN/[facility]05-08-2023Functional StatusN/[facility]01-24-2023Functional StatusN/A[facility]07-26-2022Functional StatusN/AExec[facility] 07256681-96-6404Tlautveuaz StatusN/[facility] Mental Status DateAssessmentResultHoboken University [facility] Clinical Notes 12-29-2020 to 08-20-2025 Note Date & VmxaSbnsZvuymnyx92-77-1312 Evaluation note* Diagnosis Onset Date Resolution Status Admit Date Bradykinesia acuteOctober 2024 9:23amDeliriumacuteOctober 2024 9:23amDDD (degenerative disc disease), lumbarinactiveOctober 2024 9:23amASHD (arteriosclerotic heart disease)acuteOctober 2024 10:21amDeliriumacute August 31, 2025 10:21amGenerally unsteadyacuteOctober 2024 10:21am HypercholesterolemiaacuteOctober 2024 10:21amImpaired fasting glucoseacute August 31, 2025 10:21amLumbar spondylosis with myelopathyacuteOctober 2024 10:21amPolyneuropathyacuteOctober 2024 10:21amPrimary hypertension acuteOctober 2024 10:21amScreening PSA (prostate specific antigen)acute August 31, 2025 10:21am [facility] Work Phone: 1(279) 634-124309-17-2025 History of Present illness Narrative* Carlos Obrien DO - 07/22/2025 9:30 AM EDT Images from the original note were not included. Assessment/Plan Diagnoses and all orders for this visit: Dry eyes - Dry Eyes OU -- Environmental changes to minimize dryness and exposure and the use of artificial tears were recommended. Blepharitis of upper and lower eyelids of both eyes, unspecified type - Blepharitis, posterior type OU - The patient exhibits inspissated meibomian glands. Warm compresses, lid massage and lid scrubs were recommended. documented in this encounterNorthwest Medical CenterJoedclxrvo07-93-0147 Note From: Kaelyn Hughes Sent: 06/24/2025 15:03:05 EDT Subject: General Message Caller Name: EDVIN ROLAND; Caller Number: H Refill request Myrbetriq (mirabegron ER) 50mg tablet Extended Release 24 Hr 1 tablet orally once a day. Sent to Done [facility] :[facility]. [facility] in office appt. [facility]/25[facility]Kfaphxah87-71-0648 History of Present illness Narrative* Marisol Connors MD - 06/17/2025 9:30 AM EDT HPI [...] review from admission in April 2025 to [facility] for confusion and hallucination. He has [...] By signing my name below, I, Lora Roe LPN , [employer] attest that this documentation [...] exam, discussion and plan. documented in this [facility] Work Phone: 1(734) 583-643408-13-2025 Instructions* Patient Instructions* Lora Torres LPN - 06/17/2025 [...] through Care Everywhere. * Diet and health (Afghan) documented in this [facility] Work Phone: 1(381) 742-523907-29-2025 History of Present illness Narrative* AYAN Jacobs - 06/02/2025 9:45 AM EDTAssociated Order(s): L Inj/Asp: L knee; L Inj/Asp: L subacromial bursa Post-Procedure Diagnose(s): Arthritis of left knee; Impingement of left shoulder Images from the original note were not included. Orthopedic Office note: NAME: Edvin Roland : 1945 (EST PT) (L) KNEE ; RECENT FLARE UP XRAYS TODAY 06/02/25 EPIC XRAYS, 05/02/24 @ [facility] (PUSHED TO CHANGE PACS) NO MRI NO MDP / PREDNISONE NO CORTISONE INJ CURRENT PHYSICAL THERAPY-[facility] S/P LUMBAR SX PREVIOUS PAIN MGMT [...] injection Left Shoulder SA space ( code 08040 LT) Procedure, treatment alternatives, risks and benefits [...] including increased pain, infection, and possible allergic reactions.Recommended continuation of physical therapy focusing on strengthening exercises for legs and knee.Advised to monitor pain and report any adverse [...] for mobility has led to recent symptom flare- up. Recent delirium post-surgery has resolved per at bedside. No further concerns or questions expressed, agrees to conservative measures given current rehab from back surgery in 02/2025. Treatment plan: Conservative measures recommended including rest, ice application, and gentle shoulder exercises to improve range of motion and reduce stiffness. Advised to avoid activities that exacerbate shoulder pain. Suggested use of prkt-mwm-douralu pain relievers such as acetaminophen or ibuprofen for pain management. Encouraged to continue using walker and wheelchair as needed for mobilitywhile minimizing strain on shoulders. Follow-up: Follow-up appointment [...] requiring urgent evaluation. Visit was preformed using [employer]-air[employer] transport pilot speech recognition. documented in this encounterNorthwest Medical CenterAojvuyonid92-17-1490 Evaluation note* Diagnosis Onset Date Resolution Status Admit Date Delirium acuteJuly 2024 1:49pmDDD (degenerative disc disease), lumbarinactiveJuly 2024 1:49pmASHD (arteriosclerotic heart disease)acuteJuly 2024 11:38amDeliriumacuteJuly 2024 11:38amGenerally unsteadyacuteJuly 2024 11:38amLumbar spondylosis with myelopathyacuteJuly 2024 11:38am PolyneuropathyacuteJuly 2024 11:38amPrimary hypertensionacuteJuly 2024 11:38am [facility] Work Phone: 1(524) 643-587207-22-2025 Evaluation note* Diagnosis Onset Date Resolution Status Admit Date Delirium acuteJuly 2024 1:49pmDDD (degenerative disc disease), lumbarinactiveJuly 2024 1:49pmASHD (arteriosclerotic heart disease)acuteJuly 2024 11:38amDeliriumacuteJuly 2024 11:38amGenerally unsteadyacuteJuly 2024 11:38amLumbar spondylosis with myelopathyacuteJuly 2024 11:38am PolyneuropathyacuteJuly 2024 11:38amPrimary hypertensionacuteJuly 2024 11:38amBradykinesiaacuteOctober 2024 9:23amDeliriumacuteOctober 2024 9:23amDDD (degenerative disc disease), lumbarinactiveOctober 2024 9:23am [facility] Work Phone: 1([phone]) 839-668706-27-2025 Telephone encounter Note* Telephone Encounter - Deborah Rasmussen - 05/01/2025 1:32 PM EDT Patient has dental appt next week, had TKA please call premed to [facility] [phone] no allegeries [facility] Medical CenterAllqzqcmpj06-48-2884 Miscellaneous Notes* Telephone Encounter - Deborah Rasmussen - 05/01/2025 1:32 PM EDT Patient has dental appt next week, had TKA please call premed to [facility] [phone] no allegeries documented in this encounterNorthwest Medical CenterVjswxuapgl11-91-1398 Nurse Note* Jeimy Brooks RN - 04/29/2025 10:43 AM EDT Spoke to Ellie and update her that patient was picked up by transport, also spoke to Vicenta JENNINGS at [facility] and notified facility that patient was picked up. - Jeimy Brooks RN 04/29/25 10:44 AM [facility]06-25-2025 Nurse Note* Jeimy Brooks RN - 04/29/2025 10:43 AM EDT Spoke to Ellie and update her that patient was picked up by transport, also spoke to Vicenta JENNINGS at [facility] and notified facility that patient was picked up. - Jeimy Brooks RN 04/29/25 10:44 AM * Kirk Hernandez RN - 04/28/2025 11:15 PM EDT 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 rescheduled for 830am, [facility] discharge updated in chart. [facility] [place] updated. - Kirk Hernandez RN 04/28/25 11:17 PM documented in this encounterTuscarawas Hospital06-24-2025 Nurse Note* Kirk Hernandez RN - 04/28/2025 11:15 PM EDT 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 rescheduled for 830am, [facility] star discharge updated in chart. [facility] [place] [facility] updated. - Kirk Hernandez RN 04/28/25 11:17 PM [facility]06-24-2025 Plan of care note* Plan of Care - Kirk Hernandez RN - 04/28/2025 11:11 PM EDT Problem: Knowledge Deficit Goal: Patient/patient security systems sales representative demonstrates understanding of disease process, treatment [...] Description: INTERVENTIONS: 1. Encourage patient or legal security systems sales representative to report early pain and ask [...] per policy 9. Teach patient or legal security systems sales representative interventions for comforting Outcome: Progressing Note: [...] at the bedside 7. Instruct patient/ patient security systems sales representative about use of safety devices 8. Include patient/ patient security systems sales representative in decisions related to safety Outcome: [...] hygiene technique. 7. Identify and instruct patient/patient security systems sales representative in use of appropriate isolation precautionsfor identified infection/symptoms. 8. Provide and discuss with patient/patient security systems sales representative on educational MDRO sheet. 9. Encourage and monitor nutritional status daily and consult mobile therapist if indicated. 10. Implement neutropenic guidelines as [...] Score of =/> 25 or indicated by [facility] Assessment Goal: Patient should be free from fall Description: Interventions: 1. [place] to environment 2. Hourly rounds addressing the [...] non-skid footwear 11. Teach patient and patient security systems sales representative to maintain environment for safety and [...] (cane, walker) within reach 19. Request patient security systems sales representative bring adaptive equipment/mobility aids from home or obtain and provide as needed 20. Consult pharmacy regarding effects of med's affecting mobility, cognition, and alternatives 21. Obtain physician order for PT if risk factors associated with mobility are present 22. Obtain physician order for OT as appropriate 23. Utilize diversional activities 24. Educate patient and patient security systems sales representative how to maintain a safe environment during visitationtimes (notify nurse prior to leaving bedside) 25. Consider appropriateness of medical or non-medical terminologist 26. Set up voiding schedule as appropriate [...] family how to maintain a safe environment. [facility]06-24-2025 Miscellaneous Notes* Plan of Care - Kirk Hernandez RN - 04/28/2025 11:11 PM EDT Problem: Knowledge Deficit Goal: Patient/patient security systems sales representative demonstrates understanding of disease process, treatment [...] Description: INTERVENTIONS: 1. Encourage patient or legal security systems sales representative to report early pain and ask [...] per policy 9. Teach patient or legal security systems sales representative interventions for comforting Outcome: Progressing Note: [...] at the bedside 7. Instruct patient/ patient security systems sales representative about use of safety devices 8. Include patient/ patient security systems sales representative in decisions related to safety Outcome: [...] hygiene technique. 7. Identify and instruct patient/patient security systems sales representative in use of appropriate isolation precautionsfor identified infection/symptoms. 8. Provide and discuss with patient/patient security systems sales representative on educational MDRO sheet. 9. Encourage and monitor nutritional status daily and consult mobile therapist if indicated. 10. Implement neutropenic guidelines as [...] Score of =/> 25 or indicated by [facility] Assessment Goal: Patient should be free from fall Description: Interventions: 1. [place] to environment 2. Hourly rounds addressing the [...] non-skid footwear 11. Teach patient and patient security systems sales representative to maintain environment for safety and [...] (cane, walker) within reach 19. Request patient security systems sales representative bring adaptive equipment/mobility aids from home or obtain and provide as needed 20. Consult pharmacy regarding effects of med's affecting mobility, cognition, and alternatives 21. Obtain physician order for PT if risk factors associated with mobility are present 22. Obtain physician order for OT as appropriate 23. Utilize diversional activities 24. Educate patient and patient security systems sales representative how to maintain a safe environment during visitationtimes (notify nurse prior to leaving bedside) 25. Consider appropriateness of medical or non-medical terminologist 26. Set up voiding schedule as appropriate [...] Description: INTERVENTIONS: 1. Encourage patient or legal security systems sales representative to report early pain and ask [...] per policy 9. Teach patient or legal security systems sales representative interventions for comforting Outcome: Progressing Note: Evaluation of progress towards goal: [employer] assessed that patient has had pain reassessed [...] at the bedside 7. Instruct patient/ patient security systems sales representative about use of safety devices 8. Include patient/ patient security systems sales representative in decisions related to safety Outcome: Progressing Note: Evaluation of progress towards goal: [employer] assessed that patient has been provided and [...] hygiene technique. 7. Identify and instruct patient/patient security systems sales representative in use of appropriate isolation precautionsfor identified infection/symptoms. 8. Provide and discuss with patient/patient security systems sales representative on educational MDRO sheet. 9. Encourage and monitor nutritional status daily and consult mobile therapist if indicated. 10. Implement neutropenic guidelines as needed. Outcome: Progressing Note: Evaluation of progress towards goal: [employer] has been assessed and monitored for signs and symptoms of infection. Administered medications as ordered. Monitored all insertion sites. Problem: Knowledge Deficit Goal: Patient/patient security systems sales representative demonstrates understanding of disease process, treatment plan,medications, and discharge instructions Description: INTERVENTIONS 1. Complete learning assessment and assess knowledge base 2. Provide teaching at level of understanding 3. Provide teaching via preferred learning method(s) Outcome: Progressing Note: Evaluation of progress towards goal: [employer] has assessed that patient has been provided [...] Progressing Note: Evaluation of progress towards goal: [employer] assessed the patient for the following. Identify [...] Progressing Note: Evaluation of progress towards goal: [employer] assessed that patient is being repositioned Q2. [...] supplement as ordered 13. Collaborate with clinical mobile therapist 14. Include patient/ patient's security systems sales representative in decisions related to nutrition Outcome: Progressing Note: Evaluation of progress towards goal: [employer] assessed that patient is allowed adequate time [...] Progressing Note: Evaluation of progress towards goal: [employer] assessed the patient for the following. Keep skinclean and dry. Assess perineal skin. Maintain external catheter. Problem: Moderate - High Risk Fall Score Description: Disla Fall Score of =/> 25 or indicated by [facility] Assessment Goal: Patient should be free from fall Description: Interventions: 1. [place] to environment 2. Hourly rounds addressing the [...] non-skid footwear 11. Teach patient and patient security systems sales representative to maintain environment for safety and [...] (cane, walker) within reach 19. Request patient security systems sales representative bring adaptive equipment/mobility aids from home or obtain and provide as needed 20. Consult pharmacy regarding effects of med's affecting mobility, cognition, and alternatives 21. Obtain physician order for PT if risk factors associated with mobility are present 22. Obtain physician order for OT as appropriate 23. Utilize diversional activities 24. Educate patient and patient security systems sales representative how to maintain a safe environment during visitationtimes (notify nurse prior to leaving bedside) 25. Consider appropriateness of medical or non-medical terminologist 26. Set up voiding schedule as appropriate (every 2 hours) Outcome: Progressing Note: Evaluation of progress towards goal: [employer] has been assessed in the following. [place] to environment, hourly rounds addressing the 4 P's (Pain, Positioning, Possessions, Potty). Maintain bed in lowest position. Remind patient to call for help before getting out of bed. * Discharge Planning Note - Mary Bacon - 04/28/2025 2:59 PM EDT DISCHARGE PLANNING NOTE Prior Auth approved for admission to : [facility] (P# [phone] ; F# ) Approval # [id number] Valid for Dates: 04/28/2025-05/04/2025 * Discharge Planning Note - Carri Jimenez - 04/28/2025 1:55 PM EDT DISCHARGE PLANNING NOTE BLS transport via PTN confirmed in [facility] to [facility] 6..25 at 7:00pm * PT/OT/RECREATION MANAGER - FAITH Friedman - 04/28/2025 9:58 AM [...] gait belt, RW, repositioning sling, ex cath Telemetry/Customer Manager: No Oxygen Used: room air Other: (S) [...] get from sit to stand at [facility] approx 15' - unable to stand at [...] Devlin Progressing Goal Note filed on 04/28/25 09 by FAITH Friedman Evaluation of progress towards [...] OT Outcomes Date/Time User Outcome 04/25/25 1141 AFITH Devlin Not Progressing Goal Note filed on [...] peer to peer information was provided to [facility]. Social work informing MD and message was left with insurance tocomplete peer to peer- wait final determination. CN will continue to follow and is available should any further needs arise. - JAMES ALBRIGHT 04/28/25 9:05 AM completed peer to peer and insurance approved SNF stay. Discharge written, CRF complete. Social work task [facility] to arrange BLS transport and [facility] PTN ambulance has been arranged. Leandro notified of discharge and CRF sent. HENS submitted. RN updated. is aware and agreeable to transition plan. - JAMES ALBRIGHT 04/28/25 3:36 PM * Plan of Care - Kirk Hernandez RN - 04/28/2025 12:52 AM EDT Problem: Knowledge Deficit Goal: Patient/patient security systems sales representative demonstrates understanding of disease process, treatment [...] Description: INTERVENTIONS: 1. Encourage patient or legal security systems sales representative to report early pain and ask [...] per policy 9. Teach patient or legal security systems sales representative interventions for comforting Outcome: Progressing Note: [...] at the bedside 7. Instruct patient/ patient security systems sales representative about use of safety devices 8. Include patient/ patient security systems sales representative in decisions related to safety Outcome: [...] hygiene technique. 7. Identify and instruct patient/patient security systems sales representative in use of appropriate isolation precautionsfor identified infection/symptoms. 8. Provide and discuss with patient/patient security systems sales representative on educational MDRO sheet. 9. Encourage and monitor nutritional status daily and consult mobile therapist if indicated. 10. Implement neutropenic guidelines as [...] be free from fall Description: Interventions: 1. [place] to environment 2. Hourly rounds addressing the [...] non-skid footwear 11. Teach patient and patient security systems sales representative to maintain environment for safety and [...] (cane, walker) within reach 19. Request patient security systems sales representative bring adaptive equipment/mobility aids from home or obtain and provide as needed 20. Consult pharmacy regarding effects of med's affecting mobility, cognition, and alternatives 21. Obtain physician order for PT if risk factors associated with mobility are present 22. Obtain physician order for OT as appropriate 23. Utilize diversional activities 24. Educate patient and patient security systems sales representative how to maintain a safe environment during visitationtimes (notify nurse prior to leaving bedside) 25. Consider appropriateness of medical or non-medical terminologist 26. Set up voiding schedule as appropriate [...] Description: INTERVENTIONS: 1. Encourage patient or legal security systems sales representative to report early pain and ask [...] per policy 9. Teach patient or legal security systems sales representative interventions for comforting Outcome: Progressing Note: Evaluation of progress towards goal: [employer] assessed that patient has had pain reassessed [...] at the bedside 7. Instruct patient/ patient security systems sales representative about use of safety devices 8. Include patient/ patient security systems sales representative in decisions related to safety Outcome: Progressing Note: Evaluation of progress towards goal: [employer] assessed that patient has been provided and [...] hygiene technique. 7. Identify and instruct patient/patient security systems sales representative in use of appropriate isolation precautionsfor identified infection/symptoms. 8. Provide and discuss with patient/patient security systems sales representative on educational MDRO sheet. 9. Encourage and monitor nutritional status daily and consult mobile therapist if indicated. 10. Implement neutropenic guidelines as needed. Outcome: Progressing Note: Evaluation of progress towards goal: [employer] has been assessed and monitored for signs and symptoms of infection. Administered medications as ordered. Monitored all insertion sites. Problem: Knowledge Deficit Goal: Patient/patient security systems sales representative demonstrates understanding of disease process, treatment plan,medications, and discharge instructions Description: INTERVENTIONS 1. Complete learning assessment and assess knowledge base 2. Provide teaching at level of understanding 3. Provide teaching via preferred learning method(s) Outcome: Progressing Note: Evaluation of progress towards goal: [employer] has assessed that patient has been provided [...] Progressing Note: Evaluation of progress towards goal: [employer] assessed the patient for the following. Identify [...] Progressing Note: Evaluation of progress towards goal: [employer] assessed that patient is being repositioned Q2. [...] supplement as ordered 13. Collaborate with clinical mobile therapist 14. Include patient/ patient's security systems sales representative in decisions related to nutrition Outcome: Progressing Note: Evaluation of progress towards goal: [employer] assessed that patient is allowed adequate time [...] Progressing Note: Evaluation of progress towards goal: [employer] assessed the patient for the following. Keep skinclean and dry. Assess perineal skin. Maintain indwelling catheter. Problem: Moderate - High Risk Fall Score Description: Disla Fall Score of =/> 25 or indicated by [facility] Assessment Goal: Patient should be free from fall Description: Interventions: 1. [place] to environment 2. Hourly rounds addressing the [...] non-skid footwear 11. Teach patient and patient security systems sales representative to maintain environment for safety and [...] (cane, walker) within reach 19. Request patient security systems sales representative bring adaptive equipment/mobility aids from home or obtain and provide as needed 20. Consult pharmacy regarding effects of med's affecting mobility, cognition, and alternatives 21. Obtain physician order for PT if risk factors associated with mobility are present 22. Obtain physician order for OT as appropriate 23. Utilize diversional activities 24. Educate patient and patient security systems sales representative how to maintain a safe environment during visitationtimes (notify nurse prior to leaving bedside) 25. Consider appropriateness of medical or non-medical terminologist 26. Set up voiding schedule as appropriate (every 2 hours) Outcome: Progressing Note: Evaluation of progress towards goal: [employer] has been assessed in the following. [place] to environment, hourly rounds addressing the 4 P's (Pain, Positioning, Possessions, Potty). Maintain bed in lowest position. Remind patient to call for help before getting out of bed. * Discharge Planning Note - Rhea Dueñas - 04/27/2025 4:59 PM EDT DISCHARGE PLANNING NOTE Insurance [employer] has requested a peer to peer for this case. Call : [phone] opt. : 4 Deadline is: 04/28/2025 12:00 PM EST Please have the following information when calling: Patient Name : Edvin Roland Date of : 1945 Ref # : [id number] * Discharge Planning Note - JAMES Albright - 04/27/2025 12:06 PM EDT DISCHARGE PLANNING NOTE Case discussed in daily transition rounds and chart reviewed by CN. Barriers to discharge include SNF precert, elyte replacement, monitor K Discharge Plan remains: [facility]. Waiting insurance approval for SNF. is aware and agreeable to transition plan and anxious for discharge. CN will continue to follow and is available should any further needs arise. - JAMES ALBRIGHT 04/27/25 12:07 PM * Plan of Care - Kirk Hernandez RN - 04/26/2025 11:27 PM EDT Problem: Knowledge Deficit Goal: Patient/patient security systems sales representative demonstrates understanding of disease process, treatment [...] Description: INTERVENTIONS: 1. Encourage patient or legal security systems sales representative to report early pain and ask [...] per policy 9. Teach patient or legal security systems sales representative interventions for comforting Outcome: Progressing Note: [...] at the bedside 7. Instruct patient/ patient security systems sales representative about use of safety devices 8. Include patient/ patient security systems sales representative in decisions related to safety Outcome: [...] hygiene technique. 7. Identify and instruct patient/patient security systems sales representative in use of appropriate isolation precautionsfor identified infection/symptoms. 8. Provide and discuss with patient/patient security systems sales representative on educational MDRO sheet. 9. Encourage and monitor nutritional status daily and consult mobile therapist if indicated. 10. Implement neutropenic guidelines as [...] Score of =/> 25 or indicated by [facility] Assessment Goal: Patient should be free from fall Description: Interventions: 1. [place] to environment 2. Hourly rounds addressing the [...] non-skid footwear 11. Teach patient and patient security systems sales representative to maintain environment for safety and [...] (cane, walker) within reach 19. Request patient security systems sales representative bring adaptive equipment/mobility aids from home or obtain and provide as needed 20. Consult pharmacy regarding effects of med's affecting mobility, cognition, and alternatives 21. Obtain physician order for PT if risk factors associated with mobility are present 22. Obtain physician order for OT as appropriate 23. Utilize diversional activities 24. Educate patient and patient security systems sales representative how to maintain a safe environment during visitationtimes (notify nurse prior to leaving bedside) 25. Consider appropriateness of medical or non-medical terminologist 26. Set up voiding schedule as appropriate [...] at the bedside 7. Instruct patient/ patient security systems sales representative about use of safety devices 8. Include patient/ patient security systems sales representative in decisions related to safety Outcome: Progressing Note: Evaluation of progress towards goal: [employer] assessed that patient has been provided and [...] hygiene technique. 7. Identify and instruct patient/patient security systems sales representative in use of appropriate isolation precautionsfor identified infection/symptoms. 8. Provide and discuss with patient/patient security systems sales representative on educational MDRO sheet. 9. Encourage and monitor nutritional status daily and consult mobile therapist if indicated. 10. Implement neutropenic guidelines as needed. Outcome: Progressing Note: Evaluation of progress towards goal: [employer] has been assessed and monitored for signs and symptoms of infection. Administered medications as ordered. Monitored all insertion sites. Problem: Knowledge Deficit Goal: Patient/patient security systems sales representative demonstrates understanding of disease process, treatment plan,medications, and discharge instructions Description: INTERVENTIONS 1. Complete learning assessment and assess knowledge base 2. Provide teaching at level of understanding 3. Provide teaching via preferred learning method(s) Outcome: Progressing Note: Evaluation of progress towards goal: [employer] has assessed that patient has been provided [...] Progressing Note: Evaluation of progress towards goal: [employer] assessed the patient for the following. Identify [...] Progressing Note: Evaluation of progress towards goal: [employer] assessed the patient for the following. Keep skinclean and dry. Assess perineal skin. Maintain indwelling catheter. Problem: Moderate - High Risk Fall Score Description: Disla Fall Score of =/> 25 or indicated by [facility] Assessment Goal: Patient should be free from fall Description: Interventions: 1. [place] to environment 2. Hourly rounds addressing the [...] non-skid footwear 11. Teach patient and patient security systems sales representative to maintain environment for safety and [...] (cane, walker) within reach 19. Request patient security systems sales representative bring adaptive equipment/mobility aids from home or obtain and provide as needed 20. Consult pharmacy regarding effects of med's affecting mobility, cognition, and alternatives 21. Obtain physician order for PT if risk factors associated with mobility are present 22. Obtain physician order for OT as appropriate 23. Utilize diversional activities 24. Educate patient and patient security systems sales representative how to maintain a safe environment during visitationtimes (notify nurse prior to leaving bedside) 25. Consider appropriateness of medical or non-medical terminologist 26. Set up voiding schedule as appropriate (every 2 hours) Outcome: Progressing Note: Evaluation of progress towards goal: [employer] has been assessed in the following. [place] to environment, hourly rounds addressing the 4 [...] Description: INTERVENTIONS: 1. Encourage patient or legal security systems sales representative to report early pain and ask [...] per policy 9. Teach patient or legal security systems sales representative interventions for comforting Outcome: Progressing Note: [...] at the bedside 7. Instruct patient/ patient security systems sales representative about use of safety devices 8. Include patient/ patient security systems sales representative in decisions related to safety Outcome: [...] hygiene technique. 7. Identify and instruct patient/patient security systems sales representative in use of appropriate isolation precautionsfor identified infection/symptoms. 8. Provide and discuss with patient/patient security systems sales representative on educational MDRO sheet. 9. Encourage and monitor nutritional status daily and consult mobile therapist if indicated. 10. Implement neutropenic guidelines as needed. Outcome: Progressing Note: Evaluation of progress towards goal: Handwashing and standard precautions maintained, patientremains free of signs and symptoms of infection, patient is afebrile, IV insertion site monitored. Will continue to monitor for signs and symptoms of infection. Problem: Knowledge Deficit Goal: Patient/patient security systems sales representative demonstrates understanding of disease process, treatment [...] Description: INTERVENTIONS: 1. Encourage patient or legal security systems sales representative to report early pain and ask [...] per policy 9. Teach patient or legal security systems sales representative interventions for comforting Outcome: Progressing Note: Evaluation of progress towards goal: [employer] assessed that patient has had pain reassessed [...] at the bedside 7. Instruct patient/ patient security systems sales representative about use of safety devices 8. Include patient/ patient security systems sales representative in decisions related to safety Outcome: Progressing Note: Evaluation of progress towards goal: [employer] assessed that patient has been provided and [...] hygiene technique. 7. Identify and instruct patient/patient security systems sales representative in use of appropriate isolation precautionsfor identified infection/symptoms. 8. Provide and discuss with patient/patient security systems sales representative on educational MDRO sheet. 9. Encourage and monitor nutritional status daily and consult mobile therapist if indicated. 10. Implement neutropenic guidelines as needed. Outcome: Progressing Note: Evaluation of progress towards goal: [employer] Operations Craftsman has been assessed and monitored for signs and symptoms of infection. Administered medications as ordered. Monitored all insertion sites. Problem: Knowledge Deficit Goal: Patient/patient security systems sales representative demonstrates understanding of disease process, treatment plan,medications, and discharge instructions Description: INTERVENTIONS 1. Complete learning assessment and assess knowledge base 2. Provide teaching at level of understanding 3. Provide teaching via preferred learning method(s) Outcome: Progressing Note: Evaluation of progress towards goal: [employer] Craftsman has assessed that patient has been provided [...] Progressing Note: Evaluation of progress towards goal: [employer] Craftsman assessed the patient for the following. Identify [...] Progressing Note: Evaluation of progress towards goal: [employer] Operations Craftsman assessed that patient is being repositioned Q2. [...] supplement as ordered 13. Collaborate with clinical mobile therapist 14. Include patient/ patient's security systems sales representative in decisions related to nutrition Outcome: Progressing Note: Evaluation of progress towards goal: [employer] Craftsman assessed that patient is allowed adequate time [...] Progressing Note: Evaluation of progress towards goal: [employer] Operations Craftsman assessed the patient for the following. Keep skinclean and dry. Assess perineal skin. Maintain external catheter. Problem: Moderate - High Risk Fall Score Description: Disla Fall Score of =/> 25 or indicated by [facility] Assessment Goal: Patient should be free from fall Description: Interventions: 1. [place] to environment 2. Hourly rounds addressing the [...] non-skid footwear 11. Teach patient and patient security systems sales representative to maintain environment for safety and [...] (cane, walker) within reach 19. Request patient security systems sales representative bring adaptive equipment/mobility aids from home or obtain and provide as needed 20. Consult pharmacy regarding effects of med's affecting mobility, cognition, and alternatives 21. Obtain physician order for PT if risk factors associated with mobility are present 22. Obtain physician order for OT as appropriate 23. Utilize diversional activities 24. Educate patient and patient security systems sales representative how to maintain a safe environment during visitationtimes (notify nurse prior to leaving bedside) 25. Consider appropriateness of medical or non-medical terminologist 26. Set up voiding schedule as appropriate (every 2 hours) Outcome: Progressing Note: Evaluation of progress towards goal: [employer] Craftsman has been assessed in the following. [place] to environment, hourly rounds addressing the 4 P's (Pain, Positioning, Possessions, Potty). Maintain bed in lowest position. Remind patient to call for help before getting out of bed. * PT/OT/RECREATION MANAGER - MELISSA Devlin/John - 04/25/2025 12:07 PM [...] gait belt, RW, repositioning sling, ex cath Telemetry/Customer Manager: No Oxygen Used: room air Other: (S) [...] Goal Note filed on 04/25/25 1141 by MELISSA Devlin/John Evaluation of progress towards goal: Problem: Bed Mobility Dates: Start: 04/23/25 Disciplines: OT Goal: Patient will perform bed mobility with Contact Guard Dates: Start: 04/23/25 Expected End: 05/22/25 Description: Goal Description: Disciplines: OT Outcomes Date/Time User Outcome 04/25/25 1141 FAITH Devlin Progressing Goal Note filed on 04/25/25 1141 by MELISSA Devlin/John Evaluation of progress towards goal: Problem: Cognition Dates: Start: 04/23/25 Disciplines: OT Goal: Improve cognition Dates: Start: 04/23/25 Expected End: 05/22/25 Description: Pt will demo improved safety awareness during tx sessions as evidenced by lack of needfor vc's for safety to increase independence in all functional activity. Disciplines: OT Outcomes Date/Time User Outcome 04/25/25 114 FAITH Devlin Not Progressing Goal Note filed on 04/25/25 114 by FAITH Devlin Evaluation of progress towards goal: Problem: Functional Mobility Dates: Start: 04/23/25 Disciplines: OT Goal: Patient will perform functional mobility with Contact Guard Dates: Start: 04/23/25 Expected End: 05/22/25 Description: Goal Description: Disciplines: OT Outcomes Date/Time User Outcome 04/25/251140 FAITH Devlin Not Progressing Goal Note filed on 04/25/25 114 by FAITH Devlin Evaluation of progress towards goal: Problem: Other (Customize) Dates: Start: 04/23/25 Disciplines: OT Goal: Improve Dates: Start: 04/23/25 Expected End: 05/22/25 Description: Pt will demo setup level with all UB ADLs using AE prn to facilitate return to PLOF. Disciplines: OT Outcomes Date/Time User Outcome 04/25/251140 FAITH Devlin Progressing Goal Note filed on [...] and education documentation for this visit. * PT/OT/RECREATION MANAGER - Jennie Johnson, IVY - 04/25/2025 11:51 [...] pass, ok to see for therapy per Edwin JENNINGS Equipment: gait belt, nic stedy, maxi matt repositioning sling, ext cath Telemetry/Customer Manager: No Oxygen Used: room air Other: high [...] Disciplines: PT Outcomes Date/Time User Outcome 04/25/25 1143 Jennie Johnson PTA Progressing Problem: Bed Mobility Dates: [...] Description: INTERVENTIONS: 1. Encourage patient or legal security systems sales representative to report early pain and ask [...] per policy 9. Teach patient or legal security systems sales representative interventions for comforting Outcome: Progressing Note: [...] at the bedside 7. Instruct patient/ patient security systems sales representative about use of safety devices 8. Include patient/ patient security systems sales representative in decisions related to safety Outcome: [...] hygiene technique. 7. Identify and instruct patient/patient security systems sales representative in use of appropriate isolation precautionsfor identified infection/symptoms. 8. Provide and discuss with patient/patient security systems sales representative on educational MDRO sheet. 9. Encourage and monitor nutritional status daily and consult mobile therapist if indicated. 10. Implement neutropenic guidelines as needed. Outcome: Progressing Note: Evaluation of progress towards goal: Handwashing and standard precautions maintained, patientremains free of signs and symptoms of infection, patient is afebrile, IV insertion site monitored. Will continue to monitor for signs and symptoms of infection. Problem: Knowledge Deficit Goal: Patient/patient security systems sales representative demonstrates understanding of disease process, treatment [...] at the bedside 7. Instruct patient/ patient security systems sales representative about use of safety devices 8. Include patient/ patient security systems sales representative in decisions related to safety Outcome: Progressing Note: Evaluation of progress towards goal: [employer] Craftsman assessed that patient has been provided and [...] hygiene technique. 7. Identify and instruct patient/patient security systems sales representative in use of appropriate isolation precautionsfor identified infection/symptoms. 8. Provide and discuss with patient/patient security systems sales representative on educational MDRO sheet. 9. Encourage and monitor nutritional status daily and consult mobile therapist if indicated. 10. Implement neutropenic guidelines as needed. Outcome: Progressing Note: Evaluation of progress towards goal: [employer] Craftsman has been assessed and monitored for signs and symptoms of infection. Administered medications as ordered. Monitored all insertion sites. Problem: Knowledge Deficit Goal: Patient/patient security systems sales representative demonstrates understanding of disease process, treatment plan,medications, and discharge instructions Description: INTERVENTIONS 1. Complete learning assessment and assess knowledge base 2. Provide teaching at level of understanding 3. Provide teaching via preferred learning method(s) Outcome: Progressing Note: Evaluation of progress towards goal: [employer] Craftsman has assessed that patient has been provided [...] Progressing Note: Evaluation of progress towards goal: [employer] Craftsman assessed the patient for the following. Identify [...] Progressing Note: Evaluation of progress towards goal: Space [employer] Operations Craftsman assessed the patient for the following. Keep skinclean and dry. Assess perineal skin. Maintain external catheter. Problem: Moderate - High Risk Fall Score Description: Disla Fall Score of =/> 25 or indicated by [facility] Assessment Goal: Patient should be free from fall Description: Interventions: 1. [place] to environment 2. Hourly rounds addressing the [...] non-skid footwear 11. Teach patient and patient security systems sales representative to maintain environment for safety and [...] (cane, walker) within reach 19. Request patient security systems sales representative bring adaptive equipment/mobility aids from home or obtain and provide as needed 20. Consult pharmacy regarding effects of med's affecting mobility, cognition, and alternatives 21. Obtain physician order for PT if risk factors associated with mobility are present 22. Obtain physician order for OT as appropriate 23. Utilize diversional activities 24. Educate patient and patient security systems sales representative how to maintain a safe environment during visitationtimes (notify nurse prior to leaving bedside) 25. Consider appropriateness of medical or non-medical terminologist 26. Set up voiding schedule as appropriate (every 2 hours) Outcome: Progressing Note: Evaluation of progress towards goal: Space [employer] Craftsman has been assessed in the following. [place] to environment, hourly rounds addressing the 4 P's (Pain, Positioning, Possessions, Potty). Maintain bed in lowest position. Remind patient to call for help before getting out of bed. * Discharge Planning Note - Rhea Dueñas - 04/24/2025 12:56 PM EDT DISCHARGE PLANNING NOTE Prior auth submitted to: [facility] Medicare Via: [employer] On behalf of : [facility] P# [phone]; F#[phone] via [employer] Ref# [id number] * Discharge Planning Note - Ricky Mclaughlin RN - 04/24/2025 12:26 PM EDT Ongoing Assessment for Discharge Needs Reviewed discharge milestones and patient needs related to discharge plan. Current estimated discharge date of Apr 25, 2025 has been reviewed by treatment team. Per RN during discharge transition rounds, barriers to discharge are: video swallow pending. Discharge Plan: [facility]- Confirmed with patient and spouse of discharging to [facility]. Tasked [facility] to start Pre-cert. Await pre- cert approval. Wire Drawing Die Maker will continue to follow for any discharge needs. - RIKCY MCLAUGHLIN RN 04/24/25 12:44 PM Ongoing Assessment for Discharge Needs Flowsheet Row Most Recent Value Referral To Community Referrals / Resources Provided Denies needs Services Requested Patient expects to be discharged to: SNF vs Home with [facility] Does the patient wish to have family/friend/caregiver involved in their discharge planning? Yes Discharge Disposition SNF Facility/Service Name [facility] SNF Name [facility] Accepted? Yes Does the patient need discharge transportation arranged? Yes 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 Arranged Ambulance * PT/OT/RECREATION MANAGER - Ramya Sheppard CCC-RECREATION MANAGER - 04/24/2025 10:02 AM EDT Speech Therapy Videofluoroscopic Swallow Study Evaluation and Treatment Note Discharge Recommendations for Safe Patient Transition RECREATION MANAGER Post Discharge Therapy Recommendations: Continue ST services [...] maintain safe PO intake. Prognosis Services: Skilled RECREATION MANAGER services to address above deficits Prognosis/Potential: Good [...] Dysphagia Problem: Swallowing Dates: Start: 04/23/25 Disciplines: RECREATION MANAGER Goal: LTG: Patient will maintain adequate nutrition/ hydration with optimum safety and efficiency of swallowing function of oral intake without overt signs/symptoms of aspiration for the highest appropriate diet level Dates: Start: 04/23/25 Expected End: 05/28/25 Disciplines: RECREATION MANAGER Outcomes Date/Time User Outcome 04/24/25 08LAUREN Aden Progressing 04/23/25 1115 LAUREN Gaxiola Progressing Goal: STG: Patient will tolerate therapeutic feeding trials of advanced textures with 90% accuracy with minimal cueing Dates: Start: 04/23/25 Expected End: 05/28/25 Disciplines: RECREATION MANAGER Outcomes Date/Time User Outcome 04/24/25 08LAUREN Aden Progressing 04/23/25 1115 LAUREN Gaxiola Progressing Speech Therapy Care Plan (Resolved) There are no resolved problems. Principal Problem: Altered mental status * PT/OT/RECREATION MANAGER - LAUREN Gaxiola - 04/24/2025 8:47 AM [...] Dysphagia Problem: Swallowing Dates: Start: 04/23/25 Disciplines: RECREATION MANAGER Goal: LTG: Patient will maintain adequate nutrition/ hydration with optimum safety and efficiency of swallowing function of oral intake without overt signs/symptoms of aspiration for the highest appropriate diet level Dates: Start: 04/23/25 Expected End: 05/28/25 Disciplines: RECREATION MANAGER Outcomes Date/Time User Outcome 04/24/25 0847 LAUREN Gaxiola Progressing 04/23/25 1115 LAUREN Gaxiola Progressing Goal: STG: Patient will tolerate therapeutic feeding trials of advanced textures with 90% accuracy with minimal cueing Dates: Start: 04/23/25 Expected End: 05/28/25 Disciplines: RECREATION MANAGER Outcomes Date/Time User Outcome 04/24/25 0847 LAUREN Gaxiola Progressing 04/23/25 1115 LAUREN Gaxiola Progressing Speech Therapy Care Plan (Resolved) There are no resolved problems. Principal Problem: Altered mental status * Plan of Care - Fe Marin RN - 04/23/2025 10:45 PM EDT Problem: Pain Goal: Patient goal is pain score less than 4, able to rest, and participant in treatment plan as appropriate Description: INTERVENTIONS: 1. Encourage patient or legal security systems sales representative to report early pain and ask [...] per policy 9. Teach patient or legal security systems sales representative interventions for comforting Outcome: Progressing Note: [...] at the bedside 7. Instruct patient/ patient security systems sales representative about use of safety devices 8. Include patient/ patient security systems sales representative in decisions related to safety Outcome: [...] hygiene technique. 7. Identify and instruct patient/patient security systems sales representative in use of appropriate isolation precautionsfor identified infection/symptoms. 8. Provide and discuss with patient/patient security systems sales representative on educational MDRO sheet. 9. Encourage and monitor nutritional status daily and consult mobile therapist if indicated. 10. Implement neutropenic guidelines as needed. Outcome: Progressing Note: Evaluation of progress towards goal: Handwashing and standard precautions maintained, patientremains free of signs and symptoms of infection, patient is afebrile, IV insertion site monitored. Will continue to monitor for signs and symptoms of infection. Problem: Knowledge Deficit Goal: Patient/patient security systems sales representative demonstrates understanding of disease process, treatment [...] original note were not included. Initial Assessment Space Systems Operations Craftsman met with patient's spouse, Ellie, introduced self, [...] medication assistance resources. PCP: DOROTHY HALL DO Pharmacy:[facility] in [place] and [facility] PCP and pharmacy confirmed with patient. CN offered to assist with follow up appointment arrangements; Spouse declines, stating an appointment is scheduled for next /Sun. DOROTHY HALL DO added to Follow Up Providers for Summary of Care communication. Per patient's spouse self-report: Drug use: denies Smoking: denies ETOH Use: denies Current discharge plan is: SNF vs Home w/HHC Services Requested: Services Requested Patient expects to be discharged to:: SNF vs Home with HHC Does the patient wish to have family/friend/caregiver involved in their discharge planning?: Yes Discharge Disposition: Home with home health services, SNF Facility/Service Name: [facility] SNF Name: [facility] SNF Accepted?: Yes Does the patient need discharge transportation arranged?: No Goals: Goals <enter goal here> (pt-stated) Evaluation of progress towards goal: safe discharge pending clinical progress Patient is retired and lives with spouse who [facility] was recently discharged from [facility] in [place]. Patient does not drived/t neuropathy, so spouse provides transportation. Patient has grandchildren available for some support but spouse states there is less help available during the day d/t family working. Tasked [facility] referrals to [facility] and return referral to [facility]. Both able to accept when patient medically [...] Goals Patient/Caregiver Goals Home with Home Care, [facility]illed Care (Short Term) Community Provider Referral Services Requested Patient expects to be discharged to: SNF vs Home with HHC Does the patient wish to have family/friend/caregiver involved in their discharge planning? Yes Discharge Disposition Home with home health services, SNF Facility/Service Name [facility] SNF Name [facility] Accepted? Yes Does the patient need discharge transportation arranged? No * PT/OT/RECREATION MANAGER - Verito Ordaz, PT - 04/23/2025 3:31 [...] from hospital admission 04/22/[address] [facility] with generalized weakness and hallucinations. Dx: Encephalopathy [...] Performed by Perry Garay Jr., DO at [facility] 6 Clicks: Basic Mobility Turning from your [...] Activity: early mobility: pass, ok per Grecia JENNINGS for PT eval Equipment: gait belt, nic stedy, maxi matt repositioning sling Telemetry/Customer Manager: Yes Oxygen Used: room air Other: (S) [...] memory, Decreased recall of recent events, Decreased assisted memory,Decreased recall of precautions Orientation Level: Oriented to person, Disoriented to place, Disoriented to time, Disoriented to situation (oriented to year but stated that month is December and pt stated that he was in [place] today.) Following Commands: Follows one step commands [...] problems. Principal Problem: Altered mental status * PT/OT/RECREATION MANAGER - Ramya Wilkinson OTR/John - 04/23/2025 3:20 PM EDT Occupational Therapy [...] y/o male admitted 04/[address] [facility] with generalized weakness and hallucinations. Dx: Encephalopathy [...] Performed by Perry Garay Jr., DO at [facility] OT Treatment/Interventions: Functional transfer training, ADL retraining, [...] belt, nic stedy, bed alarm, repositioning sling Telemetry/Customer Manager: Yes Oxygen Used: room air Other: high [...] memory, Decreased recall of recent events, Decreased medical terminologist memory,Decreased recall of precautions Orientation Level: Oriented to person, Disoriented to place, Disoriented to time, Disoriented to situation (oriented to year, reports month is December. Reports he is at [place]) Following Commands: Follows one step commands with [...] anxious and tachypneic with STS in nic arreloa and stopped following commands. Pt leaning all [...] EDT DISCHARGE PLANNING NOTE Referral sent to [facility] in [place], [place] (P# ;F# ) * PT/OT/RECREATION MANAGER - Deidre Barraza CCC-RECREATION MANAGER - 04/23/2025 11:15 AM EDT Speech Therapy [...] Dysphagia Problem: Swallowing Dates: Start: 04/23/25 Disciplines: RECREATION MANAGER Goal: LTG: Patient will maintain adequate nutrition/ hydration with optimum safety and efficiency of swallowing function of oral intake without overt signs/symptoms of aspiration for the highest appropriate diet level Dates: Start: 04/23/25 Expected End: 05/28/25 Disciplines: RECREATION MANAGER Outcomes Date/Time User Outcome 04/23/25 1115 LAUREN Gaxiola Progressing Goal: STG: Patient will tolerate therapeutic feeding trials of advanced textures with 90% accuracy with minimal cueing Dates: Start: 04/23/25 Expected End: 05/28/25 Disciplines: RECREATION MANAGER Outcomes Date/Time User Outcome 04/23/25 1115 LAUREN Gaxiola Progressing Speech Therapy Care Plan (Resolved) There are no resolved problems. Principal Problem: Altered mental status * Discharge Planning Note - Krissy Mancia - 04/23/2025 10:58 AM EDT DISCHARGE PLANNING NOTE Referral to [facility] [place] (P# ; F# ) * Plan of Care - Mikie Mcleod MD - 04/23/2025 10:23 AM EDT Patient seen and examined. Admitted earlier today due to confusion. Patient is status post L2-L5 decompression with fusion durotomy on 02/24/2025. He subsequently developed a UTI on 03/06/2025. He was ultimately admitted to a care home facility before being discharged home. Reportedly at [...] discussion with Neurology he was transferred to [facility]. Records are being obtained from [facility]. EEG per Neurology. Case was discussed with Neurology. Please see H and P from earlier today for full note. * PT/OT/RECREATION MANAGER - Emma Perkins CCC-RECREATION MANAGER - 04/23/2025 8:50 AM EDT Speech Therapy Videofluoroscopic Swallow Study Evaluation and Treatment Note Discharge Recommendations for Safe Patient Transition RECREATION MANAGER Post Discharge Therapy Recommendations: Continue ST services [...] recommended EEG so pt was transferred to [facility]. Speech consulted to assess swallow function in the setting of AMS. Prognosis Services: Skilled RECREATION MANAGER services to address above deficits Prognosis/Potential: Fair [...] Dysphagia Problem: Swallowing Dates: Start: 04/23/25 Disciplines: RECREATION MANAGER Goal: LTG: Patient will maintain adequate nutrition/ hydration with optimum safety and efficiency of swallowing function of oral intake without overt signs/symptoms of aspiration for the highest appropriate diet level Dates: Start: 04/23/25 Expected End: 05/28/25 Disciplines: RECREATION MANAGER Goal: STG: Patient will tolerate therapeutic feeding trials of advanced textures with 90% accuracy with minimal cueing Dates: Start: 04/23/25 Expected End: 05/28/25 Disciplines: RECREATION MANAGER Speech Therapy Care Plan (Resolved) There are no resolved problems. Principal Problem: Altered mental status * Plan of Care - Fe Marin RN - 04/22/2025 11:55 PM EDT Problem: Pain Goal: Patient goal is pain score less than 4, able to rest, and participant in treatment plan as appropriate Description: INTERVENTIONS: 1. Encourage patient or legal security systems sales representative to report early pain and ask [...] per policy 9. Teach patient or legal security systems sales representative interventions for comforting Outcome: Progressing Note: [...] at the bedside 7. Instruct patient/ patient security systems sales representative about use of safety devices 8. Include patient/ patient security systems sales representative in decisions related to safety Outcome: [...] hygiene technique. 7. Identify and instruct patient/patient security systems sales representative in use of appropriate isolation precautionsfor identified infection/symptoms. 8. Provide and discuss with patient/patient security systems sales representative on educational MDRO sheet. 9. Encourage and monitor nutritional status daily and consult mobile therapist if indicated. 10. Implement neutropenic guidelines as needed. Outcome: Progressing Note: Evaluation of progress towards goal: Handwashing and standard precautions maintained, patientremains free of signs and symptoms of infection, patient is afebrile, IV insertion site monitored. Will continue to monitor for signs and symptoms of infection. Problem: Knowledge Deficit Goal: Patient/patient security systems sales representative demonstrates understanding of disease process, treatment [...] skin clean and dry documented in this encounterWyandot Memorial HospitalIgnite100 [id number] Plan of care note * Plan of Care - Uri Valenzuela RN - 04/28/2025 7:49 PM EDT Problem: Pain Goal: Patient goal is pain score less than 4, able to rest, and participant in treatment plan as appropriate Description: INTERVENTIONS: 1. Encourage patient or legal security systems sales representative to report early pain and ask [...] per policy 9. Teach patient or legal security systems sales representative interventions for comforting Outcome: Progressing Note: Evaluation of progress towards goal: [employer] assessed that patient has had pain reassessed [...] at the bedside 7. Instruct patient/ patient security systems sales representative about use of safety devices 8. Include patient/ patient security systems sales representative in decisions related to safety Outcome: Progressing Note: Evaluation of progress towards goal: [employer] assessed that patient has been provided and [...] hygiene technique. 7. Identify and instruct patient/patient security systems sales representative in use of appropriate isolation precautionsfor identified infection/symptoms. 8. Provide and discuss with patient/patient security systems sales representative on educational MDRO sheet. 9. Encourage and monitor nutritional status daily and consult mobile therapist if indicated. 10. Implement neutropenic guidelines as needed. Outcome: Progressing Note: Evaluation of progress towards goal: [employer] has been assessed and monitored for signs and symptoms of infection. Administered medications as ordered. Monitored all insertion sites. Problem: Knowledge Deficit Goal: Patient/patient security systems sales representative demonstrates understanding of disease process, treatment plan,medications, and discharge instructions Description: INTERVENTIONS 1. Complete learning assessment and assess knowledge base 2. Provide teaching at level of understanding 3. Provide teaching via preferred learning method(s) Outcome: Progressing Note: Evaluation of progress towards goal: [employer] has assessed that patient has been provided [...] Progressing Note: Evaluation of progress towards goal: [employer] assessed the patient for the following. Identify [...] Progressing Note: Evaluation of progress towards goal: [employer] assessed that patient is being repositioned Q2. [...] supplement as ordered 13. Collaborate with clinical mobile therapist 14. Include patient/ patient's security systems sales representative in decisions related to nutrition Outcome: Progressing Note: Evaluation of progress towards goal: [employer] assessed that patient is allowed adequate time [...] Progressing Note: Evaluation of progress towards goal: [employer] assessed the patient for the following. Keep skinclean and dry. Assess perineal skin. Maintain external catheter. Problem: Moderate - High Risk Fall Score Description: Disla Fall Score of =/> 25 or indicated by [facility] Assessment Goal: Patient should be free from fall Description: Interventions: 1. [place] to environment 2. Hourly rounds addressing the [...] non-skid footwear 11. Teach patient and patient security systems sales representative to maintain environment for safety and [...] (cane, walker) within reach 19. Request patient security systems sales representative bring adaptive equipment/mobility aids from home or obtain and provide as needed 20. Consult pharmacy regarding effects of med's affecting mobility, cognition, and alternatives 21. Obtain physician order for PT if risk factors associated with mobility are present 22. Obtain physician order for OT as appropriate 23. Utilize diversional activities 24. Educate patient and patient security systems sales representative how to maintain a safe environment during visitationtimes (notify nurse prior to leaving bedside) 25. Consider appropriateness of medical or non-medical terminologist 26. Set up voiding schedule as appropriate (every 2 hours) Outcome: Progressing Note: Evaluation of progress towards goal: [employer] has been assessed in the following. [place] to environment, hourly rounds addressing the 4 P's (Pain, Positioning, Possessions, Potty). Maintain bed in lowest position. Remind patient to call for help before getting out of bed. [facility]06[facility] Progress note* Discharge Planning Note - Mary Bacon - 04/28/2025 2:59 PM EDT DISCHARGE PLANNING NOTE Prior Auth approved for admission to : [facility] (P# ; F# ) Approval # [id number] Valid for Dates: 04/28/2025-05/04/2025 [facility]-24[facility]2025 Hospital course Narrative* Alonso Patricia MD - 04/28/2025 2:36 PM EDT Images from the original note were not included. [facility]- Hospital Medicine Discharge Summary Patient's [...] CONSULTANTS: Consulting Providers Provider Service Specialty Neuro-Consulting ([facility] Only) -- Neurology PROCEDURES: No admission [...] or metabolic etiology. He was transferred to [facility] for neurology consultation. EEG was negative [...] total) by mouth nightly as needed (). CHANGE how you take these medications Instructions [...] Tubes. Procedure Abnormality Status --------- ------ PST TOP[[id number]] Final result Please view results for these [...] results found. Discharge Instructions Disposition: Discharge to EC Condition: Good Activity: activity as tolerated Diet: Adult diet Regular Texture; No straws Adult diet Dorothy Hall, DO [address] [facility] [address] Schedule an appointment as soon as possible [...] questions. Electronically signed by: ALONSO PATRICIA MD [facility], Department of Internal Medicine 04/28/25 3:22 PM documented in this encounterT[facility] Progress note* Discharge Planning Note - Carri Jimenez - 04/28/2025 1:55 PM EDT DISCHARGE PLANNING NOTE BLS transport via PTN confirmed in [facility] to [facility] 04.28. at 7:00pm [facility]-24-[facility] Progress note* PT/OT/RECREATION MANAGER - FAITH Friedman - 04/28/2025 9:58 AM [...] gait belt, RW, repositioning sling, ex cath Telemetry/Customer Manager: No Oxygen Used: room air Other: (S) [...] OT Outcomes Date/Time User Outcome 04/28/25 0958 FATIH Friedman Progressing 04/25/25 1141 FAITH Devlin Progressing [...] PM EDT Associated attestation - Annalise Olivera OTR/John - 04/28/2025 2:39 PM EDT I have reviewed and agree with this note and education documentation for this visit. [facility]-24[facility] Progress note* Discharge Planning Note - JAMES Albright - 04/28/2025 9:05 AM EDT DISCHARGE PLANNING NOTE Case discussed in daily transition rounds and chart reviewed by CN. Barriers to discharge include peer to peer, updated PT/OT Discharge Plan remains: [facility]. Insurance is intending to deny SNF stay and peer to peer information was provided to [facility]. Social work informing MD and message was left with insurance tocomplete peer to peer- wait final determination. CN will continue to follow and is available should any further needs arise. - JAMES ALBRIGHT 04/28/25 9:05 AM completed peer to peer and insurance approved SNF stay. Discharge written, CRF complete. Social work task [facility] to arrange BLS transport and [facility] PTN ambulance has been arranged. [facility] notified of discharge and [facility] sent. HENS submitted. RN updated. is aware and agreeable to transition plan. - JAMES ALBRIGHT 04/28/25 3:36 PM [facility] Plan of care note* Plan of Care - Kirk Hernandez RN - 04/28/2025 12:52 AM EDT Problem: Knowledge Deficit Goal: Patient/patient security systems sales representative demonstrates understanding of disease process, treatment [...] Description: INTERVENTIONS: 1. Encourage patient or legal security systems sales representative to report early pain and ask [...] per policy 9. Teach patient or legal security systems sales representative interventions for comforting Outcome: Progressing Note: [...] at the bedside 7. Instruct patient/ patient security systems sales representative about use of safety devices 8. Include patient/ patient security systems sales representative in decisions related to safety Outcome: [...] hygiene technique. 7. Identify and instruct patient/patient security systems sales representative in use of appropriate isolation precautionsfor identified infection/symptoms. 8. Provide and discuss with patient/patient security systems sales representative on educational MDRO sheet. 9. Encourage and monitor nutritional status daily and consult mobile therapist if indicated. 10. Implement neutropenic guidelines as [...] be free from fall Description: Interventions: 1. [place] to environment 2. Hourly rounds addressing the [...] non-skid footwear 11. Teach patient and patient security systems sales representative to maintain environment for safety and [...] (cane, walker) within reach 19. Request patient security systems sales representative bring adaptive equipment/mobility aids from home or obtain and provide as needed 20. Consult pharmacy regarding effects of med's affecting mobility, cognition, and alternatives 21. Obtain physician order for PT if risk factors associated with mobility are present 22. Obtain physician order for OT as appropriate 23. Utilize diversional activities 24. Educate patient and patient security systems sales representative how to maintain a safe environment during visitationtimes (notify nurse prior to leaving bedside) 25. Consider appropriateness of medical or non-medical terminologist 26. Set up voiding schedule as appropriate [...] family how to maintain a safe environment. [facility] Plan of care note* Plan of Care - Uri Valenzuela RN - 04/27/2025 7:25 PM EDT Problem: Pain Goal: Patient goal is pain score less than 4, able to rest, and participant in treatment plan as appropriate Description: INTERVENTIONS: 1. Encourage patient or legal security systems sales representative to report early pain and ask [...] per policy 9. Teach patient or legal security systems sales representative interventions for comforting Outcome: Progressing Note: Evaluation of progress towards goal: [employer] assessed that patient has had pain reassessed [...] at the bedside 7. Instruct patient/ patient security systems sales representative about use of safety devices 8. Include patient/ patient security systems sales representative in decisions related to safety Outcome: Progressing Note: Evaluation of progress towards goal: [employer] assessed that patient has been provided and [...] hygiene technique. 7. Identify and instruct patient/patient security systems sales representative in use of appropriate isolation precautionsfor identified infection/symptoms. 8. Provide and discuss with patient/patient security systems sales representative on educational MDRO sheet. 9. Encourage and monitor nutritional status daily and consult mobile therapist if indicated. 10. Implement neutropenic guidelines as needed. Outcome: Progressing Note: Evaluation of progress towards goal: [employer] has been assessed and monitored for signs and symptoms of infection. Administered medications as ordered. Monitored all insertion sites. Problem: Knowledge Deficit Goal: Patient/patient security systems sales representative demonstrates understanding of disease process, treatment plan,medications, and discharge instructions Description: INTERVENTIONS 1. Complete learning assessment and assess knowledge base 2. Provide teaching at level of understanding 3. Provide teaching via preferred learning method(s) Outcome: Progressing Note: Evaluation of progress towards goal: [employer] has assessed that patient has been provided [...] Progressing Note: Evaluation of progress towards goal: [employer] assessed the patient for the following. Identify [...] Progressing Note: Evaluation of progress towards goal: [employer] assessed that patient is being repositioned Q2. [...] supplement as ordered 13. Collaborate with clinical mobile therapist 14. Include patient/ patient's security systems sales representative in decisions related to nutrition Outcome: Progressing Note: Evaluation of progress towards goal: [employer] assessed that patient is allowed adequate time [...] Progressing Note: Evaluation of progress towards goal: [employer] assessed the patient for the following. Keep skinclean and dry. Assess perineal skin. Maintain indwelling catheter. Problem: Moderate - High Risk Fall Score Description: Disla Fall Score of =/> 25 or indicated by [facility] Assessment Goal: Patient should be free from fall Description: Interventions: 1. [place] to environment 2. Hourly rounds addressing the [...] non-skid footwear 11. Teach patient and patient security systems sales representative to maintain environment for safety and [...] (cane, walker) within reach 19. Request patient security systems sales representative bring adaptive equipment/mobility aids from home or obtain and provide as needed 20. Consult pharmacy regarding effects of med's affecting mobility, cognition, and alternatives 21. Obtain physician order for PT if risk factors associated with mobility are present 22. Obtain physician order for OT as appropriate 23. Utilize diversional activities 24. Educate patient and patient security systems sales representative how to maintain a safe environment during visitationtimes (notify nurse prior to leaving bedside) 25. Consider appropriateness of medical or non-medical terminologist 26. Set up voiding schedule as appropriate (every 2 hours) Outcome: Progressing Note: Evaluation of progress towards goal: [employer] has been assessed in the following. [place] to environment, hourly rounds addressing the 4 P's (Pain, Positioning, Possessions, Potty). Maintain bed in lowest position. Remind patient to call for help before getting out of bed. [facility] Progress note* Discharge Planning Note - Rhea Dueñas - 04/27/2025 4:59 PM EDT DISCHARGE PLANNING NOTE [facility] has requested a peer to peer for this case. Call : [phone] opt. : 4 Deadline is: 04/28/2025 12:00 PM EST Please have the following information when calling: Patient Name : Edvin Roland Date of : 1945 Ref # : [id number] [facility] Progress note* Discharge Planning Note - JAMES Albright - 04/27/2025 12:06 PM EDT DISCHARGE PLANNING NOTE Case discussed in daily transition rounds and chart reviewed by CN. Barriers to discharge include SNF precert, elyte replacement, monitor K Discharge Plan remains: [facility]. Waiting insurance approval for SNF. is aware and agreeable to transition plan and anxious for discharge. CN will continue to follow and is available should any further needs arise. - JAMES ALBRIGHT 04/27/25 12:07 PM [facility] History of Present illness Narrative* Mikie Mcleod MD - 04/27/2025 10:10 AM EDT Images from the original note were not included. [facility] 04/27/2025 Patient Name: Edvin Roland [...] Extra Tubes. Procedure Abnormality Status --------- ------ [facility] TOP[[id number]] Final result Please view results for these [...] from the original note were not included. [facility] 04/26/2025 Patient Name: Edvin Roland [...] from the original note were not included. [facility] Hospitalist [facility] 04/25/2025 Patient Name: Edvin Roland : 1945 [...] Q12H heparin (porcine), 5,000 Units, subcutaneous, Q12H PATIOT hydroCHLOROthiazide, 25 mg, oral, Daily melatonin, 5 [...] Kari James MD on 04/24/2025 10:05 AM Juan R Rollins MD have personally reviewed the image(s) and agree with and/or edited the report Finalized by Juan R Jeffrey MD on 04/24/2025 11:15 AM Micro: Microbiology Results No results found for the last 168 hours. * Mikie Mcleod MD - 04/24/2025 1:11 PM EDT Images from the original note were not included. [facility] 04/24/2025 Patient Name: Edvin Roland : 1945 [...] from the original result were not included. ID Neurology Video/EEG Monitoring REPORT EEG Service Date(s): 04/23/25 from 06:05 until 09:09 Date of Report: 04/23/25 History: Edvin Roland is 79 y.o. male with altered mental status who is undergoing video/EEG monitoring to evaluate for seizures. Centrally active medications: None. Procedure: This video/EEG monitoring was acquired with electrodes placed according to the Xheguntfbgzmr00-56 electrode placement system,using collodion. The EEG was [...] on this day. Cydney Myers M.D., Ph.D. Room Clerk ID Neurology Background EEG Video Monitoring Daily Result Date: 04/23/2025 Images from the original result were not included. ID Neurology Video/EEG Monitoring REPORT EEG Service Date(s): 04/23/25 @ 04:26 until 06:05 Date of Report: 04/23/25 History: Edvin Roland is 79 y.o. male with altered mental status who is undergoing video/EEG monitoring to evaluate for seizures. Centrally active medications: None. Procedure: This video/EEG monitoring was acquired with electrodes placed according to the Odpgwngudcmzx82-22 electrode placement system,using collodion. The EEG was [...] of intermittent seizures. Cydney Fernandez M.D., Ph.D. Room Clerk ID Neurology Background Baseline Routine EEG Result Date: 04/23/2025 Images from the original result were not included. ID Neurology EEG REPORT EEG Service Date: 04/23/25 Date of Report: 04/23/25 History: Edvin Roland is a 79 y.o. male with long-term post-operative altered mental status since February, who is undergoing EEG to evaluate for seizures. Centrally active medications: None. Procedure: This EEG was acquired with electrodes placed according to the Ehnbqiuiefdzw15-61 electrode placement system. The EEG was acquired [...] from the original note were not included. [facility] Neurology General Neurology Consultation Progress Note Consult Neurology Service: [phone] Primary Team: Chief Complaint and Reason for Consultation: Brief Summary: Edvin Roland is a 79 y.o. year old male for whom Neurology was consulted for chief complaint ofaltered mental status and hallucinations of unknown etiology. Patient presented to [facility] ED 04/20with altered mentation and weakness. Prior [...] EEG since read would be delayed at [facility]. Interval History: Patient evaluated at bedside this [...] from the original result were not included. ID Neurology Video/EEG Monitoring REPORT EEG Service Date(s): 04/23/25 from 06:05 until 09:09 Date of Report: 04/23/25 History: Edvin Roland is 79 y.o. male with altered mental status who is undergoing video/EEG monitoring to evaluate for seizures. Centrally active medications: None. Procedure: This video/EEG monitoring was acquired with electrodes placed according to the Ukolrhatvzweq71-55 electrode placement system,using collodion. The EEG was [...] on this day. Cydney Myers M.D., Ph.D. Room Clerk ID Neurology Background EEG Video Monitoring Daily Result Date: 04/23/2025 Images from the original result were not included. ID Neurology Video/EEG Monitoring REPORT EEG Service Date(s): 04/23/25 @ 04:26 until 06:05 Date of Report: 04/23/25 History: Edvin Roland is 79 y.o. male with altered mental status who is undergoing video/EEG monitoring to evaluate for seizures. Centrally active medications: None. Procedure: This video/EEG monitoring was acquired with electrodes placed according to the Wygiwaygzgnfa42-24 electrode placement system,using collodion. The EEG was [...] of intermittent seizures. Cydney Fernandez M.D., Ph.D. Room Clerk ID Neurology Background Baseline Routine EEG Result Date: 04/23/2025 Images from the original result were not included. ID Neurology EEG REPORT EEG Service Date: 04/23/25 Date of Report: 04/23/25 History: Edvin Roland is a 79 y.o. male with long-term post-operative altered mental status since February, who is undergoing EEG to evaluate for seizures. Centrally active medications: None. Procedure: This EEG was acquired with electrodes placed according to the Suywthvaffnni17-46 electrode placement system. The EEG was acquired [...] contrast without acute findings. Patient transferred from [facility] for EEG. Impression: Encephalopathy, likely delirium secondary to disturbed sleep cycle. Plan: Discontinue video EEG Primary team obtaining imaging from [facility] with an MRI brain and lumbar spine without contrast reportedly performed this month. Initiate Seroquel 25 mg at night in addition to melatonin 5 mg at night to aid in management of thedelirium. Delirium precautions. The neurology consult service will continue to follow. Jacy Tolentino DO PGY-1 Emergency Medicine Resident [facility] Edited by: Latonya Goodrich MD 04/23/25 Staffed with: Dr. Awad This patient is being followed by the Neurology Resident service. Contact attending directly during these hours: Sunday to 7:30-8:30 A.M. to Sunday 12-1:00 p.m. Primary Neurology service: [phone] Consult neurology service: [phone] Resident Stroke Service: [phone] If the patient belongs to the Stroke [...] for: EAG Lab Results Component Value Date [id number] 04/23/2025 Neurological work up: CT head [...] has been unremarkable. EEG was consistent with vjhh-um-lpgvwuvu generalized background slowing without evidence of seizureactivity. The EEG has since been discontinued. For management of owning, I recommend continuing melatonin 25 mg at [...] extrapolated by contextual derivation. [facility] Plan of care note * Plan of Care - Kirk Hernandez RN - 04/26/2025 11:27 PM EDT Problem: Knowledge Deficit Goal: Patient/patient security systems sales representative demonstrates understanding of disease process, treatment [...] Description: INTERVENTIONS: 1. Encourage patient or legal security systems sales representative to report early pain and ask [...] per policy 9. Teach patient or legal security systems sales representative interventions for comforting Outcome: Progressing Note: [...] at the bedside 7. Instruct patient/ patient security systems sales representative about use of safety devices 8. Include patient/ patient security systems sales representative in decisions related to safety Outcome: [...] hygiene technique. 7. Identify and instruct patient/patient security systems sales representative in use of appropriate isolation precautionsfor identified infection/symptoms. 8. Provide and discuss with patient/patient security systems sales representative on educational MDRO sheet. 9. Encourage and monitor nutritional status daily and consult mobile therapist if indicated. 10. Implement neutropenic guidelines as [...] Score of =/> 25 or indicated by [facility] Assessment Goal: Patient should be free from fall Description: Interventions: 1. [place] to environment 2. Hourly rounds addressing the [...] non-skid footwear 11. Teach patient and patient security systems sales representative to maintain environment for safety and [...] (cane, walker) within reach 19. Request patient security systems sales representative bring adaptive equipment/mobility aids from home or obtain and provide as needed 20. Consult pharmacy regarding effects of med's affecting mobility, cognition, and alternatives 21. Obtain physician order for PT if risk factors associated with mobility are present 22. Obtain physician order for OT as appropriate 23. Utilize diversional activities 24. Educate patient and patient security systems sales representative how to maintain a safe environment during visitationtimes (notify nurse prior to leaving bedside) 25. Consider appropriateness of medical or non-medical terminologist 26. Set up voiding schedule as appropriate [...] family how to maintain a safe environment. [facility]06-22-2025 Plan of care note* Plan of [...] at the bedside 7. Instruct patient/ patient security systems sales representative about use of safety devices 8. Include patient/ patient security systems sales representative in decisions related to safety Outcome: Progressing Note: Evaluation of progress towards goal: [employer] assessed that patient has been provided and [...] hygiene technique. 7. Identify and instruct patient/patient security systems sales representative in use of appropriate isolation precautionsfor identified infection/symptoms. 8. Provide and discuss with patient/patient security systems sales representative on educational MDRO sheet. 9. Encourage and monitor nutritional status daily and consult mobile therapist if indicated. 10. Implement neutropenic guidelines as needed. Outcome: Progressing Note: Evaluation of progress towards goal: [employer] has been assessed and monitored for signs and symptoms of infection. Administered medications as ordered. Monitored all insertion sites. Problem: Knowledge Deficit Goal: Patient/patient security systems sales representative demonstrates understanding of disease process, treatment plan,medications, and discharge instructions Description: INTERVENTIONS 1. Complete learning assessment and assess knowledge base 2. Provide teaching at level of understanding 3. Provide teaching via preferred learning method(s) Outcome: Progressing Note: Evaluation of progress towards goal: [employer] has assessed that patient has been provided [...] Progressing Note: Evaluation of progress towards goal: [employer] assessed the patient for the following. Identify [...] Progressing Note: Evaluation of progress towards goal: [employer] assessed the patient for the following. Keep skinclean and dry. Assess perineal skin. Maintain indwelling catheter. Problem: Moderate - High Risk Fall Score Description: Disla Fall Score of =/> [facility] Goal: Patient should be free from fall Description: Interventions: 1. [place] to environment 2. Hourly rounds addressing the [...] non-skid footwear 11. Teach patient and patient security systems sales representative to maintain environment for safety and [...] (cane, walker) within reach 19. Request patient security systems sales representative bring adaptive equipment/mobility aids from home or obtain and provide as needed 20. Consult pharmacy regarding effects of med's affecting mobility, cognition, and alternatives 21. Obtain physician order for PT if risk factors associated with mobility are present 22. Obtain physician order for OT as appropriate 23. Utilize diversional activities 24. Educate patient and patient security systems sales representative how to maintain a safe environment during visitationtimes (notify nurse prior to leaving bedside) 25. Consider appropriateness of medical or non-medical terminologist 26. Set up voiding schedule as appropriate (every 2 hours) Outcome: Progressing Note: Evaluation of progress towards goal: [employer] has been assessed in the following. [place] to environment, hourly rounds addressing the 4 P's (Pain, Positioning, Possessions, Potty). Maintain bed in lowest position. Remind patient to call for help before getting out of bed. [facility] [employer] [id number] Plan of care note* Plan of Care - Fe Marin RN - 04/26/2025 12:35 AM EDT Problem: Pain Goal: Patient goal is pain score less than 4, able to rest, and participant in treatment plan as appropriate Description: INTERVENTIONS: 1. Encourage patient or legal security systems sales representative to report early pain and ask [...] per policy 9. Teach patient or legal security systems sales representative interventions for comforting Outcome: Progressing Note: [...] at the bedside 7. Instruct patient/ patient security systems sales representative about use of safety devices 8. Include patient/ patient security systems sales representative in decisions related to safety Outcome: [...] hygiene technique. 7. Identify and instruct patient/patient security systems sales representative in use of appropriate isolation precautionsfor identified infection/symptoms. 8. Provide and discuss with patient/patient security systems sales representative on educational MDRO sheet. 9. Encourage and monitor nutritional status daily and consult mobile therapist if indicated. 10. Implement neutropenic guidelines as needed. Outcome: Progressing Note: Evaluation of progress towards goal: Handwashing and standard precautions maintained, patientremains free of signs and symptoms of infection, patient is afebrile, IV insertion site monitored. Will continue to monitor for signs and symptoms of infection. Problem: Knowledge Deficit Goal: Patient/patient security systems sales representative demonstrates understanding of disease process, treatment [...] Turn patient every 2 hours and PRN [facility]06-21-2025 Plan of care note* Plan of Care - Uri Valenzuela RN - 04/25/2025 4:02 PM EDT Problem: Pain Goal: Patient goal is pain score less than 4, able to rest, and participant in treatment plan as appropriate Description: INTERVENTIONS: 1. Encourage patient or legal security systems sales representative to report early pain and ask [...] per policy 9. Teach patient or legal security systems sales representative interventions for comforting Outcome: Progressing Note: Evaluation of progress towards goal: [employer] assessed that patient has had pain reassessed [...] at the bedside 7. Instruct patient/ patient security systems sales representative about use of safety devices 8. Include patient/ patient security systems sales representative in decisions related to safety Outcome: Progressing Note: Evaluation of progress towards goal: [employer] assessed that patient has been provided and [...] hygiene technique. 7. Identify and instruct patient/patient security systems sales representative in use of appropriate isolation precautionsfor identified infection/symptoms. 8. Provide and discuss with patient/patient security systems sales representative on educational MDRO sheet. 9. Encourage and monitor nutritional status daily and consult mobile therapist if indicated. 10. Implement neutropenic guidelines as needed. Outcome: Progressing Note: Evaluation of progress towards goal: [employer] has been assessed and monitored for signs and symptoms of infection. Administered medications as ordered. Monitored all insertion sites. Problem: Knowledge Deficit Goal: Patient/patient security systems sales representative demonstrates understanding of disease process, treatment plan,medications, and discharge instructions Description: INTERVENTIONS 1. Complete learning assessment and assess knowledge base 2. Provide teaching at level of understanding 3. Provide teaching via preferred learning method(s) Outcome: Progressing Note: Evaluation of progress towards goal: [employer] has assessed that patient has been provided [...] Progressing Note: Evaluation of progress towards goal: [employer] assessed the patient for the following. Identify [...] Progressing Note: Evaluation of progress towards goal: [employer] assessed that patient is being repositioned Q2. [...] supplement as ordered 13. Collaborate with clinical mobile therapist 14. Include patient/ patient's security systems sales representative in decisions related to nutrition Outcome: Progressing Note: Evaluation of progress towards goal: [employer] assessed that patient is allowed adequate time [...] Progressing Note: Evaluation of progress towards goal: [employer] assessed the patient for the following. Keep skinclean and dry. Assess perineal skin. Maintain external catheter. Problem: Moderate - High Risk Fall Score Description: Disla Fall Score of =/> 25 or indicated by [facility] Assessment Goal: Patient should be free from fall Description: Interventions: 1. [place] to environment 2. Hourly rounds addressing the [...] non-skid footwear 11. Teach patient and patient security systems sales representative to maintain environment for safety and [...] (cane, walker) within reach 19. Request patient security systems sales representative bring adaptive equipment/mobility aids from home or obtain and provide as needed 20. Consult pharmacy regarding effects of med's affecting mobility, cognition, and alternatives 21. Obtain physician order for PT if risk factors associated with mobility are present 22. Obtain physician order for OT as appropriate 23. Utilize diversional activities 24. Educate patient and patient security systems sales representative how to maintain a safe environment during visitationtimes (notify nurse prior to leaving bedside) 25. Consider appropriateness of medical or non-medical terminologist 26. Set up voiding schedule as appropriate (every 2 hours) Outcome: Progressing Note: Evaluation of progress towards goal: [employer] has been assessed in the following. [place] to environment, hourly rounds addressing the 4 P's (Pain, Positioning, Possessions, Potty). Maintain bed in lowest position. Remind patient to call for help before getting out of bed. [employer] [id number] Progress note* PT/OT/RECREATION MANAGER - FAITH Devlin - 04/25/2025 12:07 PM EDT Occupational Therapy [...] gait belt, RW, repositioning sling, ex cath Telemetry/Customer Manager: No Oxygen Used: room air Other: (S) [...] note and education documentation for this visit. [facility]06-21-2025 Progress note* PT/OT/RECREATION MANAGER - Jennie Johnson PTA - 04/25/2025 11:51 AM EDT Physical Therapy [...] pass, ok to see for therapy per Edwin JENNINGS Equipment: gait belt, nic stedy, maxi matt repositioning sling, ext cath Telemetry/Customer Manager: No Oxygen Used: room air Other: high [...] Outcome 04/25/25 Any Johnson PTA Progressing Problem: Bed Mobility Dates: [...] Disciplines: PT Outcomes Date/Time User Outcome 04/25/25 1143 Jennie Johnson PTA Progressing Problem: Standing Balance Dates: Start: 04/23/25 Disciplines: PT Goal: Improve balance to fair Dates: Start: 04/23/25 Expected End: 06/04/25 Description: With use of AD to reduce fall risk during ambulation Disciplines: PT Outcomes Date/Time User Outcome 04/25/25 1143 Jennie Johnson PTA Progressing Problem: Strength Dates: Start: [...] Disciplines: PT Outcomes Date/Time User Outcome 04/25/25 1143 Jennie Johnson PTA Progressing Physical Therapy Care Plan (Resolved) There are no resolved problems. Principal Problem: Altered mental status Cosigned by Nir Lomeli PT at 04/26/2025 7:01 AM EDT Associated attestation - Nir Lomeli PT - 04/26/2025 7:01 AM EDT I have reviewed and agree with this note and education documentation for this visit. [facility]06-20-2025 Plan of care note* Plan of Care - Fe Marin RN - 04/24/2025 10:57 PM EDT Problem: Pain Goal: Patient goal is pain score less than 4, able to rest, and participant in treatment plan as appropriate Description: INTERVENTIONS: 1. Encourage patient or legal security systems sales representative to report early pain and ask [...] per policy 9. Teach patient or legal security systems sales representative interventions for comforting Outcome: Progressing Note: [...] at the bedside 7. Instruct patient/ patient security systems sales representative about use of safety devices 8. Include patient/ patient security systems sales representative in decisions related to safety Outcome: [...] hygiene technique. 7. Identify and instruct patient/patient security systems sales representative in use of appropriate isolation precautionsfor identified infection/symptoms. 8. Provide and discuss with patient/patient security systems sales representative on educational MDRO sheet. 9. Encourage and monitor nutritional status daily and consult mobile therapist if indicated. 10. Implement neutropenic guidelines as needed. Outcome: Progressing Note: Evaluation of progress towards goal: Handwashing and standard precautions maintained, patientremains free of signs and symptoms of infection, patient is afebrile, IV insertion site monitored. Will continue to monitor for signs and symptoms of infection. Problem: Knowledge Deficit Goal: Patient/patient security systems sales representative demonstrates understanding of disease process, treatment [...] continue to monitor and educate as necessary [facility]06-20-2025 Plan of care note* Plan of [...] at the bedside 7. Instruct patient/ patient security systems sales representative about use of safety devices 8. Include patient/ patient security systems sales representative in decisions related to safety Outcome: Progressing Note: Evaluation of progress towards goal: [employer] assessed that patient has been provided and [...] hygiene technique. 7. Identify and instruct patient/patient security systems sales representative in use of appropriate isolation precautionsfor identified infection/symptoms. 8. Provide and discuss with patient/patient security systems sales representative on educational MDRO sheet. 9. Encourage and monitor nutritional status daily and consult mobile therapist if indicated. 10. Implement neutropenic guidelines as needed. Outcome: Progressing Note: Evaluation of progress towards goal: [employer] has been assessed and monitored for signs and symptoms of infection. Administered medications as ordered. Monitored all insertion sites. Problem: Knowledge Deficit Goal: Patient/patient security systems sales representative demonstrates understanding of disease process, treatment plan,medications, and discharge instructions Description: INTERVENTIONS 1. Complete learning assessment and assess knowledge base 2. Provide teaching at level of understanding 3. Provide teaching via preferred learning method(s) Outcome: Progressing Note: Evaluation of progress towards goal: [employer] has assessed that patient has been provided [...] Progressing Note: Evaluation of progress towards goal: [employer] assessed the patient for the following. Identify [...] Progressing Note: Evaluation of progress towards goal: [employer] assessed the patient for the following. Keep skinclean and dry. Assess perineal skin. Maintain external catheter. Problem: Moderate - High Risk Fall Score Description: Disla Fall Score of =/> 25 or indicated by [facility] Assessment Goal: Patient should be free from fall Description: Interventions: 1. [place] to environment 2. Hourly rounds addressing the [...] non-skid footwear 11. Teach patient and patient security systems sales representative to maintain environment for safety and [...] (cane, walker) within reach 19. Request patient security systems sales representative bring adaptive equipment/mobility aids from home or obtain and provide as needed 20. Consult pharmacy regarding effects of med's affecting mobility, cognition, and alternatives 21. Obtain physician order for PT if risk factors associated with mobility are present 22. Obtain physician order for OT as appropriate 23. Utilize diversional activities 24. Educate patient and patient security systems sales representative how to maintain a safe environment during visitationtimes (notify nurse prior to leaving bedside) 25. Consider appropriateness of medical or non-medical terminologist 26. Set up voiding schedule as appropriate (every 2 hours) Outcome: Progressing Note: Evaluation of progress towards goal: [employer] has been assessed in the following. [place] to environment, hourly rounds addressing the 4 P's (Pain, Positioning, Possessions, Potty). Maintain bed in lowest position. Remind patient to call for help before getting out of bed. [facility]06-20-2025 Progress note* Discharge Planning Note - Rhea Dueñas - 04/24/2025 12:56 PM EDT DISCHARGE PLANNING NOTE Prior auth submitted to: [employer] Via: [employer] On behalf of : [employer] of [facility] P# [phone]; F#[phone] via efax Ref# [id number] [facility]06-20-2025 Progress note* Discharge Planning Note - Ricky Mclaughlin RN - 04/24/2025 12:26 PM EDT Ongoing Assessment for Discharge Needs Reviewed discharge milestones and patient needs related to discharge plan. Current estimated discharge date of Apr 25, 2025 has been reviewed by treatment team. Per RN during discharge transition rounds, barriers to discharge are: video swallow pending. Discharge Plan: SN[facility]- [facility]- Confirmed with patient and spouse of discharging to SNF- [facility]. Tasked CN to start Pre-cert. Await pre- cert approval. Wire Drawing Die Maker will continue to follow for any discharge needs. - RICKY MCLAUGHLIN RN 04/24/25 12:44 PM Ongoing Assessment for Discharge Needs Flowsheet Row Most Recent Value Referral To Community Referrals / Resources Provided Denies needs Services Requested Patient expects to be discharged to: SNF vs Home with [facility] Does the patient wish to have family/friend/caregiver involved in their discharge planning? Yes Discharge Disposition SNF Facility/Service Name [facility] SNF Name [facility] Accepted? Yes Does the patient need discharge transportation arranged? Yes 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 Arranged Ambulance [facility]06-20-2025 Progress note* PT/OT/RECREATION MANAGER - Ramya Sheppard CCC- RECREATION MANAGER - 04/24/2025 10:02 AM EDT Speech Therapy Videofluoroscopic Swallow Study Evaluation and Treatment Note Discharge Recommendations for Safe Patient Transition RECREATION MANAGER Post Discharge Therapy Recommendations: Continue ST services [...] maintain safe PO intake. Prognosis Services: Skilled RECREATION MANAGER services to address above deficits Prognosis/Potential: Good [...] Dysphagia Problem: Swallowing Dates: Start: 04/23/25 Disciplines: RECREATION MANAGER Goal: LTG: Patient will maintain adequate nutrition/ hydration with optimum safety and efficiency of swallowing function of oral intake without overt signs/symptoms of aspiration for the highest appropriate diet level Dates: Start: 04/23/25 Expected End: 05/28/25 Disciplines: RECREATION MANAGER Outcomes Date/Time User Outcome 04/24/25 08LAUREN Aden Progressing 04/23/25 1115 LAUREN Gaxiola Progressing Goal: STG: Patient will tolerate therapeutic feeding trials of advanced textures with 90% accuracy with minimal cueing Dates: Start: 04/23/25 Expected End: 05/28/25 Disciplines: RECREATION MANAGER Outcomes Date/Time User Outcome 04/24/25 08LAUREN Aden Progressing 04/23/25 1115 LAUREN Gaxiola Progressing Speech Therapy Care Plan (Resolved) There are no resolved problems. Principal Problem: Altered mental status [employer] [id number] Progress note* PT/OT/RECREATION MANAGER - LAUREN Gaxiola - 04/24/2025 8:47 AM [...] Dysphagia Problem: Swallowing Dates: Start: 04/23/25 Disciplines: RECREATION MANAGER Goal: LTG: Patient will maintain adequate nutrition/ hydration with optimum safety and efficiency of swallowing function of oral intake without overt signs/symptoms of aspiration for the highest appropriate diet level Dates: Start: 04/23/25 Expected End: 05/28/25 Disciplines: RECREATION MANAGER Outcomes Date/Time User Outcome 04/24/25 0847 LAUREN Gaxiola Progressing 04/23/25 1115 LAUREN Gaxiola Progressing Goal: STG: Patient will tolerate therapeutic feeding trials of advanced textures with 90% accuracy with minimal cueing Dates: Start: 04/23/25 Expected End: 05/28/25 Disciplines: RECREATION MANAGER Outcomes Date/Time User Outcome 04/24/25 08LAUREN Aden Progressing 04/23/25 1115 LAUREN Gaxiola Progressing Speech Therapy Care Plan (Resolved) There are no resolved problems. Principal Problem: Altered mental status [facility]06-19-2025 Plan of care note* Plan of Care - Fe Marin RN - 04/23/2025 10:45 PM EDT Problem: Pain Goal: Patient goal is pain score less than 4, able to rest, and participant in treatment plan as appropriate Description: INTERVENTIONS: 1. Encourage patient or legal security systems sales representative to report early pain and ask [...] per policy 9. Teach patient or legal security systems sales representative interventions for comforting Outcome: Progressing Note: [...] at the bedside 7. Instruct patient/ patient security systems sales representative about use of safety devices 8. Include patient/ patient security systems sales representative in decisions related to safety Outcome: [...] hygiene technique. 7. Identify and instruct patient/patient security systems sales representative in use of appropriate isolation precautionsfor identified infection/symptoms. 8. Provide and discuss with patient/patient security systems sales representative on educational MDRO sheet. 9. Encourage and monitor nutritional status daily and consult mobile therapist if indicated. 10. Implement neutropenic guidelines as needed. Outcome: Progressing Note: Evaluation of progress towards goal: Handwashing and standard precautions maintained, patientremains free of signs and symptoms of infection, patient is afebrile, IV insertion site monitored. Will continue to monitor for signs and symptoms of infection. Problem: Knowledge Deficit Goal: Patient/patient security systems sales representative demonstrates understanding of disease process, treatment [...] continue to monitor and educate as necessary [facility] [employer] [id number] Progress note* Discharge Planning Note - Ricky Mclaughlin RN - 04/23/2025 5:21 PM EDT Images from the original note were not included. Initial Assessment [employer] met with patient's spouse, Ellie, introduced self, [...] medication assistance resources. PCP: DOROTHY HALL DO Pharmacy:[facility] in [place] and [facility] PCP and pharmacy confirmed with patient. CN offered to assist with follow up appointment arrangements; Spouse declines, stating an appointment is scheduled for next /Sun. DOROTHY HALL DO added to Follow Up Providers for Summary of Care communication. Per patient's spouse self-report: Drug use: denies Smoking: denies ETOH Use: denies Current discharge plan is: SNF vs Home w/HHC Services Requested: Services Requested Patient expects to be discharged to:: SNF vs Home with HHC Does the patient wish to have family/friend/caregiver involved in their discharge planning?: Yes Discharge Disposition: Home with home health services, SNF Facility/Service Name: [facility] SNF Name: [facility] [place] [facility] Accepted?: Yes Does the patient need discharge transportation arranged?: No Goals: Goals (pt-stated) Evaluation of progress towards goal: safe discharge pending clinical progress Patient is retired and lives with spouse who [facility] from [facility] in [place]. Patient does not drived/t neuropathy, so spouse provides transportation. Patient has grandchildren available for some support but spouse states there is less help available during the day d/t family working. Tasked [facility] referrals to [facility] and return referral to [facility]. Both able to accept when patient medically [...] services were unable to get patient up- C called EMT] Patient/Caregiver Goals Patient/Caregiver Goals Home with Home Care, [facility] Care Skilled [facility] Care Skilled Care (Short Term) Community Provider Referral Services Requested Patient expects to be discharged to: SNF vs Home with [facility] Does the patient wish to have family/friend/caregiver involved in their discharge planning? Yes Discharge Disposition Home with home health services, SNF Facility/Service Name [facility] SNF Name [facility] Accepted? Yes Does the patient need discharge transportation arranged? No [facility]06-19-2025 Progress note* PT/OT/RECREATION MANAGER - Verito Ordaz, PT - 04/23/2025 3:31 [...] from hospital admission 04/22/[address] [facility] with generalized weakness and hallucinations. Dx: Encephalopathy [...] Performed by Perry Garay Jr., DO at [facility] 6 Clicks: Basic Mobility Turning from your [...] belt, nic stedy, maxi matt repositioning sling Telemetry/Customer Manager: Yes Oxygen Used: room air Other: (S) [...] memory, Decreased recall of recent events, Decreased assisted memory,Decreased recall of precautions Orientation Level: Oriented to person, Disoriented to place, Disoriented to time, Disoriented to situation (oriented to year but stated that month is December and pt stated that he was in [place] today.) Following Commands: Follows one step commands [...] resolved problems. Principal Problem: Altered mental status [facility]06-19-2025 Progress note* PT/OT/RECREATION MANAGER - Ramya Wilkinson OTR/John - 04/23/2025 3:20 PM EDT Occupational Therapy [...] y/o male admitted 04/[address] [facility] with generalized weakness and hallucinations. Dx: Encephalopathy [...] Performed by Perry Garay Jr., DO at [facility] OT Treatment/Interventions: Functional transfer training, ADL retraining, [...] belt, nic stedy, bed alarm, repositioning sling Telemetry/Customer Manager: Yes Oxygen Used: room air Other: high [...] memory, Decreased recall of recent events, Decreased assisted memory,Decreased recall of precautions Orientation Level: Oriented to person, Disoriented to place, Disoriented to time, Disoriented to situation (oriented to year, reports month is December. Reports he is at [facility]) Following Commands: Follows one step commands with [...] anxious and tachypneic with STS in nic arreola and stopped following commands. Pt leaning all [...] resolved problems. Principal Problem: Altered mental status [facility] [id number] Progress note* Discharge Planning Note - Jaylene Hatfield - 04/23/2025 1:34 PM EDT DISCHARGE PLANNING NOTE Referral sent to [facility] in [place], [place] (P# ;F# ) [facility]06-19-2025 Progress note* PT/OT/RECREATION MANAGER - Deidre Barraza CCC-RECREATION MANAGER - 04/23/2025 11:15 AM EDT Speech Therapy [...] Dysphagia Problem: Swallowing Dates: Start: 04/23/25 Disciplines: RECREATION MANAGER Goal: LTG: Patient will maintain adequate nutrition/ hydration with optimum safety and efficiency of swallowing function of oral intake without overt signs/symptoms of aspiration for the highest appropriate diet level Dates: Start: 04/23/25 Expected End: 05/28/25 Disciplines: RECREATION MANAGER Outcomes Date/Time User Outcome 04/23/25 1115 LAUREN Gaxiola Progressing Goal: STG: Patient will tolerate therapeutic feeding trials of advanced textures with 90% accuracy with minimal cueing Dates: Start: 04/23/25 Expected End: 05/28/25 Disciplines: RECREATION MANAGER Outcomes Date/Time User Outcome 04/23/25 1115 LAUREN Gaxiola Progressing Speech Therapy Care Plan (Resolved) There are no resolved problems. Principal Problem: Altered mental status [facility]06-19-2025 Progress note* Discharge Planning Note - Krissy Mancia - 04/23/2025 10:58 AM EDT DISCHARGE PLANNING NOTE Referral to [facility] (P# ; F# ) [facility]06-19-2025 Plan of care note* Plan of Care - Mikie Mcleod MD - 04/23/2025 10:23 AM EDT Patient seen and examined. Admitted earlier today due to confusion. Patient is status post L2-L5 decompression with fusion durotomy on 02/24/2025. He subsequently developed a UTI on 03/06/2025. He was ultimately admitted to a care home facility before being discharged home. Reportedly at [...] discussion with Neurology he was transferred to [facility]. Records are being obtained from [facility]. EEG per Neurology. Case was discussed with Neurology. Please see H and P from earlier today for full note. [facility]06-19-2025 Progress note* PT/OT/RECREATION MANAGER - Emma Perkins CCC- RECREATION MANAGER - 04/23/2025 8:50 AM EDT Speech Therapy Videofluoroscopic Swallow Study Evaluation and Treatment Note Discharge Recommendations for Safe Patient Transition RECREATION MANAGER Post Discharge Therapy Recommendations: Continue ST services [...] recommended EEG so pt was transferred to [facility]. Speech consulted to assess swallow function in the setting of AMS. Prognosis Services: Skilled RECREATION MANAGER services to address above deficits Prognosis/Potential: Fair [...] Dysphagia Problem: Swallowing Dates: Start: 04/23/25 Disciplines: RECREATION MANAGER Goal: LTG: Patient will maintain adequate nutrition/ hydration with optimum safety and efficiency of swallowing function of oral intake without overt signs/symptoms of aspiration for the highest appropriate diet level Dates: Start: 04/23/25 Expected End: 05/28/25 Disciplines: RECREATION MANAGER Goal: STG: Patient will tolerate therapeutic feeding trials of advanced textures with 90% accuracy with minimal cueing Dates: Start: 04/23/25 Expected End: 05/28/25 Disciplines: RECREATION MANAGER Speech Therapy Care Plan (Resolved) There are no resolved problems. Principal Problem: Altered mental status [id number] Consult note* Radha Melendez MD - 04/23/2025 12:32 AM EDTAssociated Order(s): IP CONSULT TO NEUROLOGY Images from the original note were not included. [facility] Neurology General Neurology Consultation Note Consult Neurology Service: [phone] Primary Team: Hospitalist Chief Complaint and Reason for Consultation: AMS, hallucination, seen by teleneurology History: Edvin oRland is a 79 y.o. year old R [...] [place] [facility] [place] [facility] restlessness, mum dalton/difficult to understand speech and [...] stand up so he was taken to [facility]. He again had return of altered mentation. [...] have been read for several days at [facility], also recommended Seroquel 25 mg hs, delirium [...] 650 mg, 650 mg, oral, Q4H PRN, Florenitno Tran MD alum-mag hydroxide-simeth (MAALOX) 200-200-20 mg/5 [...] strength intact. Motor: 5/5 strength bilateral hand steel plate caulker, elbow flexion and extension, bilateral plantarflexion. 4-/5 [...] for fall risk Cerebellar: Able to do gjgbjo-fz-nvpt bilaterally; some dysmetria right hand but corrects [...] without acute findings who was transferred from [facility] for EEG. Impression: Altered mentation with unknown [...] night. Radha Melendez MD PGY-3 Neurology Resident [facility] 04/23/25 Staffed with: (Dr. Giraldo) This patient is being followed by the Neurology Resident service. Contact attending directly during these hours: Sunday to 7:30-8:30 A.M. to Sunday 12-1:00 p.m. Primary Neurology service: [phone] Consult neurology service: [phone] Resident Stroke Service: [phone] If the patient belongs to the Stroke [facility]AYDEN service please contact the Stroke [facility]AYDEN directly. Cosigned by Luna Giraldo MD at 04/23/2025 12:06 PM EDT Associated attestation - Luna Giraldo MD - 04/23/2025 12:06 PM EDT I reviewed the resident's note and discussed the case with the resident. This specific service willnot be billed. Additional findings/notes: [facility] Work Phone: 1(328) 441-438806-19-2025 Consult note* Radha Melendez MD - 04/23/2025 12:32 AM EDTAssociated Order(s): IP CONSULT TO NEUROLOGY Images from the original note were not included. [facility] Neurology General Neurology Consultation Note Consult Neurology Service: [phone] Primary Team: Hospitalist Chief Complaint and Reason [...] stand up so he was taken to [facility]. He again had return of altered mentation. [...] have been read for several days at [facility], also recommended Seroquel 25 mg hs, delirium [...] strength intact. Motor: 5/5 strength bilateral hand steel plate caulker, elbow flexion and extension, bilateral plantarflexion. 4-/5 [...] for fall risk Cerebellar: Able to do spdcpl-fu-popd bilaterally; some dysmetria right hand but corrects [...] without acute findings who was transferred from [facility] for EEG. Impression: Altered mentation with unknown [...] night. Radha Melendez MD PGY-3 Neurology Resident [facility] 04/23/25 Staffed with: (Dr. Giraldo) This patient is being followed by the Neurology Resident service. Contact attending directly during these hours: Sunday to 7:30-8:30 A.M. to Sunday 12-1:00 p.m. Primary Neurology service: [phone] Consult neurology service: [phone] Resident Stroke Service: [phone] If the patient belongs to the Stroke HAYDEN service please contact the Stroke [facility]AYDEN directly. Cosigned by Luna Giraldo MD at 04/23/2025 12:06 PM EDT Associated attestation - Luna Giraldo MD - 04/23/2025 12:06 PM EDT I reviewed the resident's note and discussed the case with the resident. This specific service willnot be billed. Additional findings/notes: [facility] History and physical note* Florentino Tran [...] historical details. Patient had back surgery in [place] and post op developed metabolic encephalopathy, was found to have UTI which was treated. Patient stayed in [facility] for 12 days and after that was [...] days at home. He was taken to [facility] ER and was seen by tele-neurology and has been transferred to [facility]. denies that patient had any fevers/chills, cough, [...] Performed by Perry Garay Jr., DO at [facility] Allergies: Allergies Allergen Reactions Oxycontin [Oxycodone] Not [...] reported) and communicating results to the patient/family/caregiver [facility] Work Phone: 1(517) 778-845106-19-2025 History and physical note* Florentino Tran MD [...] historical details. Patient had back surgery in [place] and post op developed metabolic encephalopathy, was found to have UTI which was treated. Patient stayed in [facility] for 12 days and after that was [...] days at home. He was taken to [facility] ER and was seen by tele-neurology and has been transferred to [facility]. denies that patient had any fevers/chills, cough, [...] Performed by Perry Garay Jr., DO at [facility] Allergies: Allergies Allergen Reactions Oxycontin [Oxycodone] Not [...] results to the patient/family/caregiver documented in this [facility] Plan of care note * Plan of Care - Fe Marin RN - 04/22/2025 11:55 PM EDT Problem: Pain Goal: Patient goal is pain score less than 4, able to rest, and participant in treatment plan as appropriate Description: INTERVENTIONS: 1. Encourage patient or legal security systems sales representative to report early pain and ask [...] per policy 9. Teach patient or legal security systems sales representative interventions for comforting Outcome: Progressing Note: [...] at the bedside 7. Instruct patient/ patient security systems sales representative about use of safety devices 8. Include patient/ patient security systems sales representative in decisions related to safety Outcome: [...] hygiene technique. 7. Identify and instruct patient/patient security systems sales representative in use of appropriate isolation precautionsfor identified infection/symptoms. 8. Provide and discuss with patient/patient security systems sales representative on educational MDRO sheet. 9. Encourage and monitor nutritional status daily and consult mobile therapist if indicated. 10. Implement neutropenic guidelines as needed. Outcome: Progressing Note: Evaluation of progress towards goal: Handwashing and standard precautions maintained, patientremains free of signs and symptoms of infection, patient is afebrile, IV insertion site monitored. Will continue to monitor for signs and symptoms of infection. Problem: Knowledge Deficit Goal: Patient/patient security systems sales representative demonstrates understanding of disease process, treatment [...] towards goal: Keep skin clean and dry [facility]05-05-2025 NoteAdmission Information Patient: Edvin Roland : 1945 Date of Admission: 02/24/2025 12:00:25 Date of Discharge: 03/08/2025 12:06:00 Code Status: Full resuscitation PCP: Dorothy Hall DO Consult: Bob DARNELL, Lisa Rae PA-C, Christian Levine; Becky WALTERS, Denny Marie; Sarthak WALTERS, Eugenie; Miller WALTERS, Jorgito Palma; Remberto WALTERS, Hung Follow Up with Provider With When Contact Information Dr. Paez (Neurology) Within 1 month Additional Instructions: Call for followup appointment Dorothy Hall In 0 days [address] [place] [address]- Business (1) Additional Instructions: [facility] Madeline WALTERS, [...] improved and patient was discharged back to care home facility. Discharge Time Spent with Patient: 35 min were spent with final examination of the patient, discussion of the hospital stay, instructions for continuing care to all relevant caregivers, and preparation of discharge records and prescriptions. Medications New Medications [facility]/pharmacy #[id number], [address], [place] [id number], [phone] QUEtiapine (SEROquel 25 mg oral tablet) 25 [...] Request Patient Discharge Condition Stable Discharge Disposition long-term facility Objective Physical Exam General: AAOx3 no acute distress pleasantly confused at times Eye: Normal conjunctiva. HENT: Normocephalic, moist oral mucosa, no scleral icterus. Neck: Supple, non-tender, no lymphadenopathy. Lungs: Clear to auscultation, no rales rhonch or wheeze Heart: (more content not included)...[facility]04-23-2025 NoteOT evaluation hold. Patient on active bedrest in AM. OT to see when able. Electronically signed by Meme Christensen 02/25/25 12:00 [facility]04-22-2025 Note Operative Report DATE OF PROCEDURE: [...] and battery removal. SURGEON: Anita Schmid MD GENERAL COUNSELOR: RAMONITA Quarles PA-C assisted throughout the procedure [...] dural tear, nerve root injury, nonunion, DVT/PE, IL, stroke, etc. All questions were answered. Informed [...] determined by bony (more content not included)... [facility]04-21-2025 NoteChief Complaint Back pain History of Present [...] removal and L3-4 decompression in 2018 at [place] [address] Larry. He then had a [...] MRI Lumbar Spine dated 01/12/2025 done at [facility] Electronically signed by Christian Rae PA-C 02/23/25 21:27 [facility] 01-28-2025 History of Present illness Narrative* [...] By signing my name below, I, Lora Roe LPN, Scribe attest that this documentation has [...] exam, discussion and plan. documented in this [facility] Work Phone: 1(992) 800-795703-26-2025 Instructions* Patient Instructions* Lora Torres LPN - [...] cardiac standpoint 6 months documented in this [facility] Work Phone: 1(894) 345-792301-08-2025 History of Present illness Narrative* Ilir Keenan Jarrod, DO - 11/12/2024 10:15 AM EST Images from the original note were not included. HISTORY OF PRESENT ILLNESS: EST PT Edivn Roland is an 79 y.o. @ male. (R) KNEE (EST PT W/ JOHNANIC) RECHECK (R) KNEE ; S/P (R) TKA [...] an appointment with Dr. Mcdonald at the [facility] for orthopedic spine consult. We'll see [...] for requiring urgent evaluation. documented in this encounterNorthwest Medical [id number] Evaluation + Plan note Extracted from:Title:chronic painAuthor:Bert Huang DODate:09/24/24 Patient is presenting with h istory of [...] will provide further education and contact the [employer] representatives for additional support. He rates his [...] the remote, we will follow-up with the [employer] ham for further education -Will schedule right [...] call with any questions or concerns that arise.[facility] 11-20-2024 NoteConsultation Note Patient is presenting [...] will provide further education and contact the [employer] representatives for additionalsupport. He rates his back [...] the remote, we will follow-up with the [employer] ham for further education -Will schedule right [...] call with any questions or concerns that arise.[facility] HospitalComment on above:Result Comment: Electronically Signed By: Bert Huang DO\.br\Date and Time Signed: 09/24/24 09:48 [id number] Evaluation + Plan noteExtracted from:Title:Pain Managment Follow upAuthor:Stephenie Barrios PA-CDate:08/27/24 Impression and Plan Patient is a 78-year-old [...] will work with the spinal cord stimulator security systems sales representative and follow-up in a few weeks for reevaluation. He would like to restart physical therapy. Restrictions were discussed. Showering and wound care was discussed. Follow-up as above mention. ZACARIAS score: 48%. Future Appointments Appointment Date:09/24/2024 08:45:00 AM Scheduled Provider:Bert Huang DO Location:.[facility] Appointment Type:Pain Management - Follow Up (FT) [facility] [id number] NoteConsultation Note Patient: EDVIN ROLAND Age: 78 [...] a reprogramming with the spinal cord stimulator security systems sales representative. He has some pain that [...] q12hr, # 20 cap(s), Refills(s) 0, Pharmacy: [facility]/pharmacy #[id number], 193, cm, 08/19/24 7:28:00 EDT, [...] list: All Problems Hypercholesterolemia / SNOMED CT 92321866 / Confirmed Hernia, inguinal, right / SNOMED CT 521897470 / Confirmed BPH with urinary obstruction / SNOMED CT 1074593302 / Confirmed Elevated PSA / SNOMED CT 4106540725 / Confirmed Impotence / SNOMED CT 7475703576 / Confirmed Urinary frequency / SNOMED CT 346570995 / Confirmed Nocturia / SNOMED CT 265779576 / Confirmed Weak urinary stream / SNOMED CT 047934166 / Confirmed Gross hematuria / SNOMED CT 230602101 / Confirmed Anticoagulated / SNOMED CT 429197170 / Confirmed Urge incontinence / SNOMED CT 319075856 / Confirmed Chronic prostatitis / SNOMED CT 09588003 / Confirmed Dysuria / SNOMED CT 88082427 / Confirmed Urinary retention / SNOMED CT 007240034 / Confirmed BMI 31.0-31.9,adult / SNOMED CT 494754447 / Confirmed Incomplete bladder emptying / SNOMED CT 639770161 / Confirmed Post-void dribbling / SNOMED CT 080976408 / Confirmed Incontinence without sensory awareness / SNOMED CT 5118891668 / Confirmed At risk for falls / SNOMED CT 661698042 / Possible ED (erectile dysfunction) / SNOMED CT 7268312559 / Confirmed Leaking of urine / SNOMED CT 2173609655 / Confirmed Urinary incontinence / SNOMED CT 4209887321 / Confirmed Prostate cancer screening / SNOMED CT 379867543 / Confirmed Resolved: Hypertension / SNOMED CT 7636230713 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 Incision is healing well. A new clean [...] done. He will (more content not included)... [facility] HospitalComment on above:Result Comment: Electronically Signed By: Sophie SHIPMAN, Stephenie\.br\Date and Time Signed: 08/27/24 11:19 EDT 08-19-2024 Evaluation + Plan noteExtracted from:Title:ANES Post-operative Note - GeneralAuthor:Liliana Alcala CRNADate:08/19/24 Plan Transfer/Discharge: Transfer/Discharge Discharge when meets criteria ( From PACU to Ambulatory Surgery Unit, and To home ). 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 A 5 cm incision was then made in a longitudinal paramedian approach on the left side lumbar spine along the needle trajectory using an 11 blade. A touhy needle was then advanced into the epidural space with confirmation using glass ykpb-hc-pesxkqvtfe syringe and lead was threaded at T11/12 . A second Touhy was then advanced underneath the initial Touhy. Next we proceeded with epidural placement of both of Avista 50 cm 8 contact leads advanced to the bottom of T7 vertebral level. AP and lateral radiograph confirmed posterior placement. The patient was then awoken andcomplex programming was performed to ensure adequate coverage to her painful regions. Once completecoverage of her painful areas was confirmed, the patient's anesthetic was deepened. We then irrigated the incision with sterile saline at the point of entry of her stimulator leads, next clik anchorswere utilized to affix the stimulator leads to the paraspinous fascia/ligament. Fixate sutures wereused to attach the anchors to appropriate fascial [...] wound was irrigated with sterile saline. The [employer] wave greeting card writer alpha 16 pulse generator kit was then attached to the spinal cord stimulator leads after a Touhy needle wasused to create a channel between the 2 [...] pocket. Then with the help of the firstassist both wounds were closed in a stepwise fashion using 0 Vicryl for the deep fascial layer, 2-0Vicryl was then used for the superficial fascial [...] Postoperative pain medication and prophylactic antibiotics were provided.Addendum by Bert Huang DO on August 19, 2024 10:38 EDT Correction to above: No assistant property manager was utilized during this case. Closure was performed by myself. Extracted from:Title:ANES Pre-operative Note uthor:Liliana Alcala CRNA. Date:08/19/24 Patient: EDVIN ROLAND Age: [...] list: All Problems Anticoagulated / SNOMED CT 577054929 / Confirmed At risk for falls / SNOMED CT 510666960 / Possible BMI 31.0-31.9,adult / SNOMED CT 005430481 / Confirmed BPH with urinary obstruction / SNOMED CT 9234566677 / Confirmed Chronic prostatitis / SNOMED CT 95099442 / Confirmed Dysuria / SNOMED CT 36072649 / Confirmed ED (erectile dysfunction) / SNOMED CT 6153943643 / Confirmed Elevated PSA / SNOMED CT 8618901250 / Confirmed Gross hematuria / SNOMED CT 629667213 / Confirmed Hernia, inguinal, right / SNOMED CT 396664016 / Confirmed Hypercholesterolemia / SNOMED CT 54443380 / Confirmed Impotence / SNOMED CT 1431775204 / Confirmed Incomplete bladder emptying / SNOMED CT 139698320 / Confirmed Incontinence without sensory awareness / SNOMED CT 2004449782 / Confirmed Leaking of urine / SNOMED CT 0036969923 / Confirmed Nocturia / SNOMED CT 329917513 / Confirmed Post-void dribbling / SNOMED CT 419575984 / Confirmed Prostate cancer screening / SNOMED CT 001283563 / Confirmed Urge incontinence / SNOMED CT 180177713 / Confirmed Urinary frequency / SNOMED CT 579340814 / Confirmed Urinary incontinence / SNOMED CT 6311627357 / Confirmed Urinary retention / SNOMED CT 633333823 / Confirmed Weak urinary stream / SNOMED CT 463780890 / Confirmed Resolved: Hypertension / SNOMED CT 3210338638 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 Procedure history: Spinal Cord Stimulator Trial ([id number]) on 06/24/2024 at 78 Years. Comments: 07/02/2024 8:58 Marifer Alegre 60% relief Injection of sacroiliac joint using fluoroscopic guidance (5655932937) on 01/09/2024 at 78 Years. Comments: 01/25/2024 13:34 Azra Fitzgerald RN 90% relief for 4 hrs Radiofrequency ablation of nerve root of lumbar spine using fluoroscopic guidance ([id number]) on 10/08/2023 at 78 Years. Comments: 11/09/2023 11:23 Savannah Paredes RN Bilateral L3/4+L4/5- no relief Biliateral L3/4, L4/5 MBB ([id number]) on 09/04/2023 at 77 Years. Comments: 09/14/2023 7:53 Tomasa Abdullahi RN Bilateral L3/4, L4/5 MBB-80% relief for 1 day Bilateral L3/L4 L4/L5 MBB ([id number]) on 08/07/2023 at 77 Years. Comments: 08/28/2023 7:57 Sharee Jama RN BL L3/L4 L4/L5 MBB 85% Relief x 4 hours Caudal epidural ([id number]) on 05/29/2023 at 77 Years. Comments: 06/18/2023 10:04 Sharee Jama RN Caudal john 50% relief L3/4 Medial Branch Blocks ([id number]) on 05/01/2023 at 77 Years. Comments: 05/11/2023 9:48 Savannah Mari RN bilateral 75% relief for 2 hours Injection of facet joint using fluoroscopic guidance ([id number]) on 03/12/2023 at 77 Years. Comments: 03/19/2023 9:18 EDT - Myranda Sierra RN pt changed amt of relief to 80% x 4 hr. 03/19/2023 8:54 EDT - Myranda Sierra RN L3/4 MBB- 50% relief x 4 hr Cysto/Botox 100 units ([id number]) on 05/11/2022 at 76 Years. Blepharoplasty ([id number]) on 02/07/2021 at 75 Years. Cystourethroscopy with dilation of urethral stricture (559462094) on 12/02/2020 at 75 Years. Right eye cataract extraction and insertion of intraocular lens ([id number]) on 11/02/2020 at 75 Years. TURP - Transurethral resection of prostate ([id number]) on 04/28/2020 at 74 Years. Cystourethroscopy with dilation of urethral stricture ([id number]) on 12/08/2019 at 74 Years. back surgery on 10/16/2019 at 74 Years. Comments: 12/02/2019 9:22 JU - Ke Marine Gao 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3 Placement of stent in cardiac conduit ([id number]) on 06/16/2019 at 73 Years. inguinal hernia repair in 2018 at 72 Years. TURP - Transurethral resection of prostate ([id number]) on 07/12/2016 at 70 Years. Cystoscopy ([id number]) on 06/23/2016 at 70 Years. Evolve laser of prostate ([id number]) on 03/14/2013 at 67 Years. Urodynamics (259256077) on 02/13/2013 at 67 Years. Back (016568181). Arthroscopy of knee joint (126084952). CE - Cataract extraction (0442506429). Release of trigger finger (500265713). Social History Social & Psychosocial Habits Alcohol 08/12/2024 Type: Liquor Frequency: 3-5 times per week 08/12/2024 Use: Current Frequency: Daily 08/12/2024 Use: Current Frequency: Daily Comment: 1-2 shot per day - 03/14/2024 09:48 - Tomasa Kelly RN Substance Abuse 4Risk Assessment: Denies Substance Abuse [...] adequate air exchange. Cardiovascular: Regular rhythm. Plan [place] [employer] of Anesthesiologists (ASA) physical status classification: Class III. Anesthetic Preoperative Plan: Anesthesia General.Addendum by Liliana Alcala CRNA on August 19, 2024 7:42 EDTChange title of note to progress note Future Appointments Appointment Date:08/27/2024 11:15:00 AM Scheduled Provider:Stephenie Barrios PA-C Location:FT.[facility] Appointment Type:Pain Management - Follow Up (FT) [facility] 10-15-2024 NoteProgress Note-Physician Patient: EDVIN ROLAND Age: 78 years Sex: Male : 1945 Associated Diagnoses: None Author: Liliana Alcala CRNA Postoperative Information Postoperative disposition: Postoperative disposition: Home. Optimetrix number: Optimetrix number [id number]. Anesthetic utilized: General. Health Status Allergies: Allergic [...] Blood Pressure 62 mm (more content not included)...[facility] HospitalComment on above:Result Comment: Electronically Signed By: Liliana Alcala CRNA\.br\Date and Time Signed: 08/19/24 10:25 [id number] Note Progress Note-Physician Patient: EDVIN ROLAND Age: [...] list: All Problems Anticoagulated / SNOMED CT 858711597 / Confirmed At risk for falls / SNOMED CT 681146638 / Possible BMI 31.0-31.9,adult / SNOMED CT 043615527 / Confirmed BPH with urinary obstruction / SNOMED CT 7007328306 / Confirmed Chronic prostatitis / SNOMED CT 60191888 / Confirmed Dysuria / SNOMED CT 24029789 / Confirmed ED (erectile dysfunction) / SNOMED CT 6525280223 / Confirmed Elevated PSA / SNOMED CT 6664988852 / Confirmed Gross hematuria / SNOMED CT 985585601 / Confirmed Hernia, inguinal, right / SNOMED CT 393844462 / Confirmed Hypercholesterolemia / SNOMED CT 10465619 / Confirmed Impotence / SNOMED CT 5043338069 / Confirmed Incomplete bladder emptying / SNOMED CT 102805178 / Confirmed Incontinence without sensory awareness / SNOMED CT 3820235277 / Confirmed Leaking of urine / SNOMED CT 8747441997 / Confirmed Nocturia / SNOMED CT 579160413 / Confirmed Post-void dribbling / SNOMED CT 729351816 / Confirmed Prostate cancer screening / SNOMED CT 132718374 / Confirmed Urge incontinence / SNOMED CT 274464049 / Confirmed Urinary frequency / SNOMED CT 837503141 / Confirmed Urinary incontinence / SNOMED CT 8671960740 / Confirmed Urinary retention / SNOMED CT 091808469 / Confirmed Weak urinary stream / SNOMED CT 868647326 / Confirmed Resolved: Hypertension / SNOMED CT 7689674440 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 Pt. Reports [...] to be instructed in home exercise program. Assisted Goals: To be met in 10 weeks [...] Please sign below. Date: documented in this encounterNorthwest Medical CenterQyfzhszhgj48-98-4257 History of Present illness Narrative* Mesfin Paez, DO - 07/15/2024 9:00 AM EDT Images from [...] for his back- Dr. Huang at [facility] [place]. Review of Systems Constitutional: [...] reflexes are 0 and symmetric throughout. Coordination: Bynyzu-ba-uxko testing and rapid alternating movements are normal Gait: Patient ambulates with a walker Review and summary of old records: MRI of the cervical spine without contrast on 05/27/2024: Multilevel moderate to marked foraminal narrowing with few levels of moderate canal narrowing and temh-qg-ooookrte disc bulging with facet arthropathy. CT of [...] He has previously had EMG analysis in [place]. He is currently undergoing physical therapy and [...] plan, and return instructions documented in this encounterNorthwest Medical CenterUcdcgpvajs17-72-2890 Telephone encounter Note* Telephone Encounter - Ulices Esquivel NP - 07/08/2024 10:44 AM EDT Allergies reviewed. Rx sent to pharmacy. [facility] CenterZygwbjmtvf46-32-1178 Miscellaneous Notes* Telephone Encounter - Ulices Esquivel NP - 07/08/2024 10:44 AM EDT Allergies reviewed. Rx sent to pharmacy. * Telephone Encounter - Tomasa Posadas - 07/08/2024 10:22 AM EDT Patient's called stating Edvin is having teeth cleaned 07/15/24 and needs RX sent to [facility] pharmacy is [place]. Please advise. documented in this encounterNorthwest Medical CenterUcfikycegm04-78-8285 Telephone encounter Note* Telephone Encounter - Tomasa Posadas - 07/08/2024 10:22 AM EDT Patient's called stating Edvin is having teeth cleaned 07/15/24 and needs RX sent to [facility] pharmacy is [place]. Please advise. [facility] Medical CenterNgckwigekz47-66-7888 Evaluation + Plan noteExtracted from:Title:Pain Managment Follow upAuthor:Sophie SHIPMAN, AmandaDate:07/02/24 Impression and Plan Patient is a 78-year-old [...] anything from our services. ZACARIAS score: 42 %.[facility] 08-28-2024 NoteConsultation Note Patient: EDVIN ROLAND [...] list: All Problems Hypercholesterolemia / SNOMED CT 93078031 / Confirmed Hernia, inguinal, right / SNOMED CT 908254949 / Confirmed BPH with urinary obstruction / SNOMED CT 1730369653 / Confirmed Elevated PSA / SNOMED CT 6530898353 / Confirmed Impotence / SNOMED CT 8342420587 / Confirmed Urinary frequency / SNOMED CT 309609033 / Confirmed Nocturia / SNOMED CT 044650311 / Confirmed Weak urinary stream / SNOMED CT 133725092 / Confirmed Gross hematuria / SNOMED CT 658114526 / Confirmed Anticoagulated / SNOMED CT 488342383 / Confirmed Urge incontinence / SNOMED CT 001875831 / Confirmed Chronic prostatitis / SNOMED CT 27492563 / Confirmed Dysuria / SNOMED CT 05932703 / Confirmed Urinary retention / SNOMED CT 479637176 / Confirmed BMI 31.0-31.9,adult / SNOMED CT 655374643 / Confirmed Incomplete bladder emptying / SNOMED CT 472772820 / Confirmed Post-void dribbling / SNOMED CT 107700890 / Confirmed Incontinence without sensory awareness / SNOMED CT 6158268291 / Confirmed At risk for falls / SNOMED CT 950160720 / Possible ED (erectile dysfunction) / SNOMED CT 7519777752 / Confirmed Leaking of urine / SNOMED CT 9790671787 / Confirmed Urinary incontinence / SNOMED CT 8072635981 / Confirmed Prostate cancer screening / SNOMED CT 760896654 / Confirmed Resolved: Hypertension / SNOMED CT 0471985424 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 Neurologic: Alert, Oriented. Psychiatric: Cooperative, Appropriate mood [...] medications. He had a (more content not included)...[facility] HospitalComment on above:Result Comment: Electronically Signed By: Stephenie Barrios PA-C\.br\Date and Time Signed: 07/02/24 09:36 [id number] NoteProgress Note-Physician Patient: EDVIN ROLAND Age: 78 [...] Problems Leaking of urine / SNOMED CT 4517383016 / Confirmed Urinary incontinence / SNOMED CT 7906991177 / Confirmed Urge incontinence / SNOMED CT 152723273 / Confirmed Hernia, inguinal, right / SNOMED CT 121906501 / Confirmed Urinary retention / SNOMED CT 837612347 / Confirmed Elevated PSA / SNOMED CT 8116747607 / Confirmed Post-void dribbling / SNOMED CT 954040318 / Confirmed Weak urinary stream / SNOMED CT 489494845 / Confirmed Prostate cancer screening / SNOMED CT 707634910 / Confirmed Nocturia / SNOMED CT 958526686 / Confirmed Urinary frequency / SNOMED CT 729228080 / Confirmed Incontinence without sensory awareness / SNOMED CT 6092889988 / Confirmed Impotence / SNOMED CT 8653913886 / Confirmed Hypercholesterolemia / SNOMED CT 48152404 / Confirmed Gross hematuria / SNOMED CT 160358819 / Confirmed Incomplete bladder emptying / SNOMED CT 035123595 / Confirmed ED (erectile dysfunction) / SNOMED CT 3785878406 / Confirmed Dysuria / SNOMED CT 58944451 / Confirmed Anticoagulated / SNOMED CT 812805572 / Confirmed Chronic prostatitis / SNOMED CT 29785507 / Confirmed BMI 31.0-31.9,adult / SNOMED CT 826513830 / Confirmed BPH with urinary obstruction / SNOMED CT 3960402315 / Confirmed At risk for falls / SNOMED CT 327665121 / Possible 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 Comments: 01/25/2024 13:34 Azra Fitzgerald RN 90% relief for 4 hrs Radiofrequency ablation of nerve root of lumbar spine using fluoroscopic guidance (4557615433) on 10/08/2023 at 78 Years. Comments: 11/09/2023 11:23 Savannah Paredes RN Bilateral L3/4+L4/5- no relief Biliateral L3/4, L4/5 MBB (3328229970) on 09/04/2023 at 77 Years. Comments: 09/14/2023 7:53 Tomasa Abdullahi RN Bilateral L3/4, L4/5 MBB-80% relief for 1 day Bilateral L3/L4 L4/L5 MBB (6144071009) on 08/07/2023 at 77 Years. Comments: 08/28/2023 7:57 Sharee Jama RN BL L3/L4 L4/L5 MBB 85% Relief x 4 hours Caudal epidural (387491261) on 05/29/2023 at 77 Years. Comments: 06/18/2023 10:04 Sharee aJma RN Caudal john 50% relief L3/4 Medial Branch Blocks (7606863301) on 05/01/2023 at 77 Years. Comments: 05/11/2023 9:48 Savannah Mari RN bilateral 75% relief for 2 hours Injection of facet joint using fluoroscopic guidance (8450679390) on 03/12/2023 at 77 Years. Comments: 03/19/2023 9:18 Myranda Butler RN pt changed amt of relief to 80% x 4 hr. 03/19/2023 8:54 Myranda Butler RN L3/4 MBB- 50% relief x 4 hr Cysto/Botox 100 units ([id number]) on 05/11/2022 at 76 Years. Blepharoplasty (517908325) on 02/07/2021 at 75 Years. Cystourethroscopy with dilation of urethral stricture (406520705) on 12/02/2020 at 75 Years. Right eye cataract extraction and insertion of intraocular lens (1294951711) on 11/02/2020 at 75 Years. TURP - Transurethral resection of prostate (102180094) on 04/28/2020 at 74 Years. Cystourethroscopy with dilation of urethral stricture (710260840) on 12/08/2019 at 74 Years. back surgery on 10/16/2019 at 74 Years. Comments: 12/02/2019 9:22 JU - Marine Dempsey 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3 Placement of stent in cardiac conduit (7844628266) on 06/16/2019 at 73 Years. inguinal hernia repair in 2018 at 72 Years. TURP - Transurethral resection of prostate (148909476) on 07/12/2016 at 70 Years. Cystoscopy (23815632) on 06/23/2016 at 70 Years. Evolve laser of prostate (460635571) on 03/14/2013 at 67 Years. Urodynamics (410256840) on 02/13/2013 at 67 Years. Back (470550610). Arthroscopy of knee joint (969637188). CE - Cataract extraction (1269503319). R (more content not included)...[facility] HospitalComment on above: Result Comment: Electronically Signed By: Gokul Escalera Jr, DO\.br\Date and Time Signed: 06/26/24 07:45 [id number] NoteProgress Note-Physician Patient: EDVIN ROLAND Age: 78 [...] Discharge when meets criteria ( To home ).[facility] HospitalComment on above:Result Comment: Electronically Signed By: Gokul Escalera Jr, DO\.br\Date and Time Signed: 06/26/24 07:45 EDT 06-24-2024 Evaluation + Plan noteExtracted from:Title:Spinal cord stimulator trialAuthor:Bert Huang DO.Date:06/24/24 Diagnosis: Lumbar postlamine ctomy pain syndrome, M96.1. Chronic pain syndrome G89.29. Procedure: Spinal cord stimulator trial under fluoroscopic guidance with two 16 contact Infinion leads from [employer] and 2 click anchors, 03324. Analyze neurostimulator complex, 35801. Anesthesia: MAC Complications: None Description: After informed [...] the epidural space with confirmation using glass qqqk-cw-slahjjskjg syringe and lead was threaded at T12/L1. [...] AM Scheduled Provider:Stephenie Barrios PA-C Location:.[facility] Mgmt [place] Appointment Type:Pain Management - Follow Up (FT) [facility] 08-08-2024 Hospital Discharge instructions Patient Education [...] nerve stimulation). ?For women, using a medical terminologist to prevent urine leaks. This is a [...] right after experiencing incontinence. General instructions Take nvrx-zmg-kcznwvs and prescription medicines only as told by [...] important. Where to find more information [place] of Diabetes and Digestive and Kidney Diseases: www.niddk.nih.gov [place] [employer] Association: www.urologyhealth.org Contact a health care [...] provider. Document Revised: 05/27/2021 Document Reviewed: 05/27/2021 [employer] Patient Education 2022 [employer]. Follow Up Care 05/23/2024 09:29:30 With:NINA SHIPMAN, ALANIS Bustillo, URL Address: [address] [address] When: Unknown Comments:KESHIA [facility] 08-08-2024 NotePatient Education Urology Urinary Incontinence Urinary [...] stimulation). ? For women, using a medical terminologist to prevent urine leaks. This is a [...] that can protect the (more content not included)...[facility]07-18-[facility] History of Present illness Narrative* Marisol Cnonors MD - 05/22/2024 9:50 AM EDT Subjective [...] exam, discussion and plan. documented in this [facility] Work Phone: 1(479) 935-839007-18-2024 Instructions* Patient Instructions* Lora Torres LPN - [...] proceed with back stimulator documented in this [facility] Work Phone: 1(140) 558-750106-28-2024 Evaluation + Plan noteExtracted from:Title: Pain Managment Follow upAuthor:Stephenie Barrios PA-CDate:05/02/24 Impression and Plan Patient is a 78-year-old [...] once authorization has been obtained ZACARIAS score: 56%.[facility]06[facility] NoteConsultation Note Patient: EDVIN ROLAND Age: [...] # 15 tab(s), Refills(s) 3, Pharmacy: [facility]/pharmacy #[id number], 193, cm, 08/31/22 9:11:00 EDT, Height/Length Dosing, 114.5, kg, 08/31/22 9:11:00 EDT, Weight Dosing... amitriptyline 10 mg Tab: 10 mg = 1 tab(s), Oral, Once a day (at bedtime), X 30 day(s), # 30 tab(s),Refills(s) 1, Pharmacy: [facility]/pharmacy #[id number], 193, cm, 03/14/24 9:55:00 EDT, Height/Length Dosing, 104.5, kg, 03/14/24 9:55:00 EDT, Weight Dosing amitriptyline 25 mg Tab: 25 mg = 1 tab(s), Oral, Once a day (at bedtime), X 30 day(s), # 30 tab(s),Refills(s) 1, Pharmacy: [facility]/pharmacy #[id number], 193, cm, 05/02/24 10:29:00 EDT, Height/Length Dosing, 104.5, kg, 03/14/24 9:55:00 EDT, Weight Dosing pregabalin 25 mg Cap: 25 mg = 1 cap(s), Oral, BID, # 60 cap(s), Refills(s) 2, Pharmacy: [facility]/pharmacy #[id number], 193, cm, 11/09/23 11:29:00 EST, [...] list: All Problems Hypercholesterolemia / SNOMED CT 02107434 / Confirmed Hernia, inguinal, right / SNOMED CT 121277115 / Confirmed BPH with urinary obstruction / SNOMED CT 3199765536 / Confirmed Elevated PSA / SNOMED CT 6243489052 / Confirmed Impotence / SNOMED CT 8832124264 / Confirmed Urinary frequency / SNOMED CT 776708830 / Confirmed Nocturia / SNOMED CT 005844019 / Confirmed Weak urinary stream / SNOMED CT 343132787 / Confirmed Gross hematuria / SNOMED CT 825594528 / Confirmed Anticoagulated / SNOMED CT 647187098 / Confirmed Urge incontinence / SNOMED CT 879291996 / Confirmed Chronic prostatitis / SNOMED CT 07183759 / Confirmed Dysuria / SNOMED CT 79260125 / Confirmed Urinary retention / SNOMED CT 640370455 / Confirmed BMI 31.0-31.9,adult / SNOMED CT 504628460 / Confirmed Incomplete bladder emptying / SNOMED CT 040573976 / Confirmed Post-void dribbling / SNOMED CT 856024279 / Confirmed Incontinence without sensory awareness / SNOMED CT 7379276578 / Confirmed At risk for falls / SNOMED CT 116990347 / Possible ED (erectile dysfunction) / SNOMED CT 0831620005 / Confirmed Leaking of urine / SNOMED CT 5116610515 / Confirmed Urinary incontinence / SNOMED CT 2898069625 / Confirmed Prostate cancer screening / SNOMED CT 275690719 / Confirmed Resolved: Hypertension / SNOMED CT 3243774128 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 Eye: Normal conjunctiva. HENT (more content not included)...[facility] HospitalComment on above: Result Comment: Electronically Signed By: Stephenie Barrios PA-C\.br\Date and Time Signed: 05/02/24 10:53 [id number] Evaluation + Plan noteExtracted from: Title:Pain Managment Follow upAuthor:Stephenie Barrios PA-CDate:03/14/24 Impression and Plan Patient is a 78-year-old male with a past medical history significant for postlaminectomy syndrome,chronic pain and chronic low back pain. Unfortunate, patient's symptoms have not gotten any better with the injections he has undergone and the medications he has trialed have caused Side Effects. We Discussed Possible Spinal Cord Stimulator Trial. Questions and Concerns Were All Answered and Discussed. He Will Be Given Information about This. I Would like Him to Trial Elavil 10 Mg at Bedtime.Potential Effects Were Discussed. He Is Going to Follow-Up in 2 to 4 Weeks for Reevaluation. Call Clinic Sooner If Necessary. I Would Also like to Discuss His Case with Dr. Huang. Patient Will Follow-Up As Above-Mentioned. OARRS Reviewed ZACARIAS Score: 58% Future Appointments Appointment Date:05/02/2024 10:30:00 AM Scheduled Provider:Stephenie Barrios PA-C Location:FT.[facility] Appointment Type:Pain Management - Follow Up (FT) [facility]03-22-2024 Evaluation + Plan noteExtracted from: Title:Pain Managment Follow upAuthor:Stephenie Barrios PA-CDate:01/25/24 Impression and Plan Patient is a 78-year-old male with a past medical history significant for postlaminectomy syndrome,lumbar spondylosis and sacroiliitis. Patient still has not gotten the relief he is looking for. Theablation did not help and the sacroiliac joint injection did not help. At this time, he does not want to undergo any more injections. He states that they have not given him when he is looking for andthey have been painful for him. We reviewed [...] Date:03/14/2024 09:45:00 AM Scheduled Provider:Stephenie Barrios PA-C Location:FT.[facility] Appointment Type:Pain Management - Follow Up (FT) [facility]03-06-2024 Evaluation + Plan noteExtracted from: Title:Bilateral sacroiliac joint injectionAuthor:Bert Huang DODate: 01/09/24 Diagnosis: M46.1, bilateral sacroiliitis Procedure: Bilateral diagnostic [...] 01:30:00 PM Scheduled Provider:Stephenie Barrios PA-C Location:.[facility] Appointment Type:Pain Management - Follow Up (FT) [facility]03-06-2024 Note [id number] NoteDiagnosis: M46.1, bilateral sacroiliitis Procedure: [...] procedure, and agrees to continue currently prescribed/recommended therapies.[facility] Comment on above:Result Comment: Electronically Signed By: Bert Huang DO\Date and Time Signed: 01/09/24 11:32 [id number] Hospital Discharge instructions Patient Education 12/14/2023 10:59:33 [...] nerve stimulation). ?For women, using a medical terminologist to prevent urine leaks. This is a [...] right after experiencing incontinence. General instructions Take buoq-gxg-mcrtshv and prescription medicines only as told by [...] important. Where to find more information [place] of Diabetes and Digestive and Kidney Diseases: www.niddk.nih.gov [place] [employer]: www.urologyhealth.org Contact a health care [...] provider. Document Revised: 05/27/2021 Document Reviewed: 05/27/2021 [employer] Patient Education 2022 [employer]. Follow Up Care 12/07/2023 15:16:05 With:DUC WALTERS, Homero Marie, URL Address: [facility] [address] , [place] [address]- [phone] When: only if needed [facility] 02-05-2024 Evaluation + Plan noteExtracted from:Title: Pain Managment Follow upAuthor:Sophie SHIPMAN, AmandaDate:12/10/23 Impression and Plan Patient is a 78-year-old male with a past medical history significant for postlaminectomy syndrome,lumbar spondylosis and sacroiliitis. Unfortunate, bilateral L3-5 RFA did not give him relief. The 2medial branch blocks did. Previous caudal epidural steroid [...] Date:12/14/2023 09:30:00 AM Scheduled Provider:Homero XAVIER MD Location:[facility] Appointment Type:URO Office Visit [facility]01-10-2024 History of Present illness Narrative* Marisol [...] Attestation By signing my name below, Ruby RollinsIlir SILVA , Scribe attest that this documentation has been prepared under the direction and in the presence of Marisol Connors MD. Assessment/Plan 1. Arteriosclerosis of coronary artery Follow Up In Cardiology 2. Status post coronary angioplasty 3. Dyslipidemia 4. Essential hypertension 5. Obesity (BMI 30.0-34.9) 6. At risk for falls documented in [facility] Work Phone: 1(220) 298-899601-10-2024 Instructions* Patient Instructions* Steven Wheeler MA - [...] Fall Prevention Education Given documented in [facility] [place] Work Phone: [phone]) 487-337601-05-2024 Evaluation + Plan noteExtracted from:Title: Pain Managment Follow upAuthor:Sophie SHIPMAN, AmandaDate:11/09/23 Impression and Plan Patient is a 78-year-old male with a past medical history significant for postlaminectomy syndrome,chronic pain, and lumbar spondylosis. Unfortunate, recent bilateral [...] sent to the pharmacy and he will follow-up in 1 month.Call the clinic sooner if necessary. ZACARIAS score: 44% Future Appointments Appointment Date:12/10/2023 11:15:00 AM Scheduled Provider:Bib Sanchez MD [facility] Type:Pain Management - Follow Up (FT) Appointment Date:12/11/2023 01:00:00 PM Scheduled Provider:ALANIS WOOD PA-C Location:[facility] Appointment Type:URO Office Visit [facility]12-19-2023 Evaluation note* Encounter Date Diagnosis Assessment Notes Treatment Notes Treatment Clinical Notes Oct, ASHD (arteriosclerotic heart dis ease) (ICD-10 - I25.10) This patient is stable without activity related CP, dyspnea or lightheadedness. They are instructedto continue exercise and AHA diet plan. Continue secondary prevention measures. Oct,Hypercholesterolemia (ICD-10 - E78.00)Instructed on diet and exercise with continued statin therapy.Discussed the beneficial effects of lo wering cholesterol in reducing the risk for cerebrovascular and cardiovascular disease. Oct,rimary hypertension (ICD-10 - I10)This patient is instructed to consume a healthy, low-fat, low-salt diet. They are also encouraged to continue exercise to achieve/maintain a normal BMI. Oct,IFG (impaired fasting glucose) (ICD-10 - R73.01)Healthy diet, avoid sweets. He has lost weight, could be his IFG has worsened to dx of DM Check A1C, FBS Oct,Lumbar spondylosis (ICD-10 - M47.816)The patient is instructed to avoid bending, twisting or lifting. They are to use intermittent heat and ice as needed. They may schedule a massage or gentle manipulation. They may safely use Tylenol as needed. f/u pain management Keep active Fall precautions Oct,olyneuropathy (ICD-10 - G62.9)Fall precautions Inspect feet daily for cuts and calluses. Use of assistive device: walker preferred over cane. PT declined Medical therapy failed to improve his symptoms Oct,Unintentional weight loss (ICD-10 - R63.4) Oct,Overweight (ICD-10 - E66.3)This patient has been instructed on a low-fat, high-fiber diet. They are instructed to reduce calories, portion sizes and snacks. It is recommended that they exercise for 30 minutes, 3-5 times weekly. Oct,Fatigue, unspecified type (ICD-10 - R53.83) [facility] Other 12-04-2023 Note [id number] Evaluation + Plan noteExtracted from:Title:Pain Managment Follow up Author:Sophie SHIPMAN, AmandaDate:09/14/23 Impression and Plan Patient is a 77-year-old [...] will follow-up as above mentioned ZACARIAS score: 28%[facility]10-31-2023 Note [id number] [facility] 08-07-2023 [id number]:127Fisher [facility]07-07-2023 Evaluation + Plan noteExtracted from:Title:Pain Managment Follow upAuthor:Sophie SHIPMAN, AmandaDate:05/11/23 Impression and Plan Patient is a 77-year-old male with a past medical history significant for previous lumbar fusion, lumbar stenosis, lumbar neuritis, neuropathy and lumbar spondylosis. Patient unfortunate, did not getshort-term relief from the recent repeat medial branch block. He states he just does not understandwhy he cannot feel better. The first meal branch block helped. The second did not. We had a long discussion about this. We reviewed the MRI. We discussed different options. He had questions and concerns that were all answered and discussed. He is going to continue on the Lyrica. He is going to callfor any refills. OARRS reviewed. Based on his [...] the clinic sooner if necessary. ZACARIAS score: 42%[facility]06-29-[facility] Evaluation note* Encounter Date Diagnosis Assessment Notes Treatment Notes Treatment Clinical Notes Apr, Thyroid cyst (ICD-10 - E04.1) FN A non-diagnostic - 2014, US: stable nodules, no further scans necessary - 04/2023 [facility] Other 05-15-2023 Evaluation + Plan noteExtracted from:Title: Pain Managment Follow upAuthor:Sophie SHIPMAN, AmandaDate:03/19/23 Impression and Plan Patient is a 77-year-old [...] were discussed. OARRS was reviewed. Patient will follow-up as above mentioned. Call clinic sooner if necessary. 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 Other 01-25-2023 Evaluation note* Encounter Date Diagnosis Assessment Notes Treatment Notes Treatment Clinical Notes Nov, Low back pain, unspecified (ICD- 10 - M54.50) Nov,Other chronic pain (ICD-10 - G89.29) [facility] Other 01-24-2023 Hospital Discharge instructions Patient Education [...] urethra. Follow these instructions at home: Take ymjg-xbp-qqnuibd and prescription medicines only as told by [...] 10/22/2006 Document Revised: 09/16/2019 Document Reviewed: 11/26/2017 [employer] Patient Education 2020 [employer] Follow Up Care 08/31/2022 09:40:03 With:NINA SHIPMAN, ALANIS E, URL Address: [address] [place] [address] When: Unknown [facility] 07-26-2022 Hospital Discharge instructions Patient Education [...] urethra. Follow these instructions at home: Take qpnt-awh-gtzreca and prescription medicines only as told by [...] 10/22/2006 Document Revised: 09/16/2019 Document Reviewed: 11/26/2017 [employer] Patient Education 2020 [employer]. Follow Up Care 05/11/2022 10:39:09 With:Remy Bernal MD, Goldy Lopez URO Address: [facility] [address] , [place] [address]- [phone] When:Within 2 Month(s) Comments:PVR [facility] 07-07-2022 Hospital Discharge instructions Patient Education 05/11/2022 [...] Alberto Address: [facility] [address], [place] [address]- Business (1) When:4 weeks Comments:PVR with next office visit [facility]06-15-2021 NoteHNO ID: [id number] Author: Alanis Nguyen MD Service: ? Author [...] He had a second opinion with Dr. Quezada([facility]), felt that he did not need the [...] when he tried to get up the stitcher around, tripped over went ramp. He established with [...] loss of consciousness, he was brought to [facility] needing stitches. CT c- spine showed degenerative [...] as he can do more at the [facility] center. They are planning to go back to the [facility]. Current Outpatient Medications Medication Sig Dispense [...] pain, no s (more content not included)... [facility]02-24-2021 NotePatient Outreach (COVAMN) EDVIN ROLAND ([id number]) 1945 M Date Time Provider Department 12/29/20 YARITZA WILLSON During your visit today, we recorded the following information about you: Allergies As of Date: 12/29/2020 (No Known Allergies) Date Reviewed: 11/16/2020 Reviewed by: Mauri Du) SHIRA Horn - Fully Assessed Order(s):SARS-COVID VACCINE 1ST DOSE APPT [[id number]] Order #: [id number] FUTURE Prescriptions as of 12/29/2020 Sig: CYANOCOBALAMIN [...] (None) Encounter Status:Closed by OSCAR SULLIVAN on 01/03/21[facility] Evaluation + Plan note Future Appointments Appointment Date:05/11/2022 10:00:00 AM Scheduled Provider: Location:[facility] Appointment Type:Urology FT [facility] evaluation + Plan note Future Appointments Appointment Date:05/30/2022 09:30:00 AM Scheduled Provider:Goldy Alberto Jr., MD Location:[facility] Appointment [facility] Future Appointments Appointment Date:08/08/2022 08:45:00 AM Scheduled Provider:Goldy Alberto Jr., MD Location:[facility] Appointment Type:URO Office Visit [facility] evaluation + Plan note Future Appointments Appointment Date:01/10/2023 11:00:00 AM Scheduled Provider:ALANIS WOOD PA-C Location:[facility] Appointment Type:URO Office Visit [facility] evaluation + Plan note Future Appointments Appointment Date:03/19/2023 08:30:00 AM Scheduled Provider:Stephenie Barrios PA-C Location:[facility] [place] Appointment Type:Pain Management - Follow Up (FT) [facility] + Plan note Future Appointments Appointment Date:05/11/2023 10:00:00 AM Scheduled Provider:Stephenie Barrios PA-C Location:[facility] [place] Appointment Type:Pain Management - Follow Up (FT) [facility] + Plan note Future Appointments Appointment Date:08/28/2023 07:45:00 AM Scheduled Provider:Bib Sanchez MD Location:[facility] [place] Appointment Type:Pain Management - Follow Up (FT) [facility] + Plan note Future Appointments Appointment Date:11/09/2023 11:15:00 AM Scheduled Provider:Stephenie Barrios PA-C Location:[facility] [place] [facility] Future Appointments Appointment Date:06/17/2024 11:30:00 AM Scheduled Provider:Bert Huang DO Location:[facility] [place] Appointment Type:Pain Management - Nurse Consult (FT) Appointment Date:06/24/2024 08:00:00 AM Scheduled Provider: Location:[facility] Appointment Type:Surgery FT Appointment Date:07/02/2024 08:45:00 AM Scheduled Provider:Stephenie Barrios PA-C Location:[facility] [place] Appointment Type:Pain Management - Follow Up (FT) [facility] evaluation + Plan note Future Appointments Appointment Date:06/24/2024 08:00:00 AM Scheduled Provider: [facility] Type:Surgery FT Appointment Date:07/02/2024 08:45:00 AM Scheduled Provider:Stephenie Barrios PA-C Location:[facility] [place] Appointment Type:Pain Management - Follow Up (FT) [facility] evaluation + Plan note Future Appointments Appointment Date:06/24/2024 08:00:00 AM Scheduled Provider: [facility] Type:Surgery FT Appointment Date:07/02/2024 08:45:00 AM Scheduled Provider:Stephenie Barrios PA-C Location:[facility] [place] Appointment Type:Pain Management - Follow Up (FT) Diagnostic Tests Pending * MRSA Screen 06/17/24 [facility] evaluation + Plan note Future Appointments Appointment Date:08/19/2024 08:00:00 AM Scheduled Provider: [facility] Type:Surgery FT Appointment Date:08/27/2024 11:15:00 AM Scheduled Provider:Stephenie Barrios PA-C Location:[facility] [place] Appointment Type:Pain Management - Follow Up (FT) Diagnostic Tests Pending * MRSA Screen 08/12/24 [facility] evaluation + Plan note Future Appointments Appointment Date:08/19/2024 08:00:00 AM Scheduled Provider: [facility] Type:Surgery FT Appointment Date:08/27/2024 11:15:00 AM Scheduled Provider:Stephenie Barrios PA-C Location:[facility] [place] Appointment Type:Pain Management - Follow Up (FT) [facility] evaluation noteNo InformationNohedrick medical center [employer] Other evaluation noteNohedrick medical center [employer] [employer] Other evaluation note* Diagnosis Arteriosclerosis of coronary artery- Primary Status post coronary angioplasty Postsurgical percutaneous transluminal coronary angioplasty status Dyslipidemia Other and unspecified hyperlipidemia Essential hypertension Unspecified essential hypertension Obesity (BMI 30.0-34.9) At risk for falls Personal history of fall documented in this encounter [facility] [place] Work Phone: Evaluation note* Diagnosis Onset Date Resolution Status Abnormal intentional weight loss acuteASHD (arteriosclerotic heart disease)acuteHypercholesterolemiaacuteImpaired fasting glucoseacuteMemory deficitacutePrimary hypertensionacute [facility] Work Phone: Evaluation note* Diagnosis Onset Date Resolution Status Impaired fasting glucose acuteLumbar spondylosisacuteMemory deficitacutePrimary hypertensionacuteAbnormal intentional weight lossacuteASHD (arteriosclerotic heart disease)acuteImpaired fasting glucoseacutePrimary hypertensionacute [facility] Work Phone: Evaluation note* Diagnosis Onset Date Resolution Status ASHD (arteriosclerotic heart disease) acuteHypercholesterolemiaacuteImpaired fasting glucoseacuteLumbar spondylosis acutePolyneuropathyacutePrimary hypertensionacuteMedicare annual wellness visit, subsequentnoneactiveScreening PSA (prostate specific antigen)noneactive [facility] Work Phone: Evaluation note* Diagnosis Onset Date Resolution Status ASHD (arteriosclerotic heart disease) acuteHypercholesterolemiaacuteImpaired fasting glucoseacuteLumbar spondylosis acutePolyneuropathyacutePrimary hypertensionacuteMedicare annual wellness visit, subsequentnoneactiveScreening PSA (prostate specific antigen)noneactive Abrasion, scalp w/o infectionacuteConcussionacuteContusion, hipacuteContusion, kneeacuteASHD (arteriosclerotic heart disease)acuteLumbar spondylosisacute PolyneuropathyacutePrimary hypertensionacute [facility] Work Phone: Evaluation note* Diagnosis Acute [...] idiopathic peripheral neuropathy documented in this encounter [facility] Work Phone: Evaluation note* Diagnosis Acute pain [...] I, BMI 30-34.9 documented in this encounter [facility] Work Phone: Evaluation note* Diagnosis Onset Date Resolution Status Admit Date ASHD (arteriosclerotic heart disease) acuteApril 2024 1:50pmHypercholesterolemiaacuteApril 2024 1:50pm Impaired fasting glucoseacuteApril 2024 1:50pmLumbar spondylosisacuteApril 2024 1:50pmPrimary hypertensionacuteApril 2024 1:50pmPreop exam for internal medicinenoneactiveApril 2024 1:50pm [facility] Work Phone: Evaluation note* Diagnosis Altered mental status- Primary documented [facility] noteNo assessment information available [facility] Work Phone: Evaluation note* Diagnosis Acute [...] hazards to health documented in this encounter [facility] Work Phone: Evaluation note* Diagnosis Dry eyes- Primary Unspecified tear film insufficiency Blepharitis of upper and lower eyelids of both eyes, unspecified type documented in this encounter [facility] HealthcareHistory general Narrative - Reported* Type Description Date Medical History HTN Medical HistoryneuropathyMedical HistoryarthritisMedical Historyheart stent Medical HistorycataractsMedical HistoryGoutMedical Historyhigh cholesterol Medical HistoryprostateSurgical Historyheart cath with stent placedSurgical Historyback surgery x 2Surgical Historyhernia repairHospitalization Historysee surg hx [facility] Other History general Narrative - Reported* Type Description Date Medical History hypertension Medical HistoryneuropathySurgical Historycardiac stent placementSurgical History fusion lumbarSurgical Historyremoval of hardware lumbar spineSurgical History4 surgeries to lumbar spineSurgical Historyright total knee replacementSurgical Historyright carpal tunnel surgerySurgical Historyabdominal hernia repair Surgical Historycataract surgery both eyesHospitalization Historysee surgery list [facility] Other History general Narrative - ReportedNoLe[facility] Other Hospital course Narrative No data available for this section [facility] Hospital Discharge instructions No data available for this section [facility] Hospital Discharge instructionsNot on filedocumented in this encounterMercy Health [facility] SystemProgress note No data available for this section [facility] reason for referral (narrative)* Consultation (Routine) - AuthorizedSpecialtyDiagnoses / ProceduresReferred By ContactReferred To ContactCardiology Diagnoses Arteriosclerosis of coronary artery Procedures Follow Up In Cardiology Marisol Connors MD [address] [facility] 2, [place] [address] [place] [address] Marisol Connors MD [address] [place] [address] [address], [address] [address] Referral IDStatusReasonStart DateExpiration DateVisits RequestedVisits [id number]/10/20241/9/202511 [facility] Work Phone: Reclrf for referral (narrative)* Consultation (Routine) - AuthorizedSpecialtyDiagnoses / ProceduresReferred By Contact Referred To ContactCardiology Diagnoses Arteriosclerosis of coronary artery Procedures Follow Up In Cardiology Marisol Connors MD [address] [place] [address] 2, [address] [address] Marisol Connors MD [address] [place] [address] [facility] 2, [place] [id number] Referral IDStatusReasonStart DateExpiration DateVisits RequestedVisits [id number]/18/20247/18/202511 [facility] Work Phone: Repmqo for referral (narrative)* Misc (Routine) - Pending ReviewSpecialtyDiagnoses / ProceduresReferred By ContactReferred To Contact Procedures Adult diet Alonso Patricia MD [address] [place] [address] Phone: tel: fax: Referral IDStatusReasonStart DateExpiration DateVisits RequestedVisits [id number] Review [facility] HospitalReason for referral (narrative)No reason for referral information availableBellevue Hospital Work Phone: [facility]arkland [facility] center for visit Narrative* Consultation (Routine) - AuthorizedSpecialtyDiagnoses / ProceduresReferred By ContactReferred To ContactPhysical Therapy Diagnoses Acute pain of left knee Foot drop, right foot History of falling Left hip impingement syndrome Right hip impingement syndrome Procedures [place] OFFICE/OUTPATIENT NEW HIGH MDM 60 MINUTES Fatoumata Montes PA [address] [facility] [address] [place] [address] Chauncey Aldrich, PT [address] [facility] [address] [place] [address] Referral IDStatusReasonStabington DateExpiration DateVisits RequestedVisits [id number] Consult and Treat [facility] for [facility] Narrative* Consultation (Routine) - Closed SpecialtyDiagnoses / ProceduresReferred By ContactReferred To ContactPhysical Therapy Diagnoses Acute pain of left knee Foot drop, right foot History of falling Left hip impingement syndrome Right hip impingement syndrome Procedures [place] OFFICE/OUTPATIENT NEW [facility] 60 MINUTES Fatoumata Montes PA [address] [facility] [address] [place] [address] Chauncey Aldrich, PT [address] [facility] [address] [place] [address] Referral IDStatusReasonStart DateExpiration DateVisits RequestedVisits [id number] Consult and Treat /[id number] [facility] CenterReason for visit Narrative* Auth/CertSpecialtyDiagnoses / ProceduresReferred By ContactReferred To Contact Diagnoses Altered Mental Status [address] [address] Referral IDStatusReasonStart DateExpiration DateVisits RequestedVisits [id number] [facility] Summary Purpose Family History Relationship Condition Age at Onset Recorded Date/T beatriz Not Specified No pertinent family history Unknown Unknown Family Member Name Dates Details Family history of diabetes m ellitus: Mother(V18.0, Z83.3) Status:ActiveFamily history of bundle branch block: Sister(V17.49, Z82.49) Status:Active Unknown Family Member Name Dates Details Family history of diabetes m ellitus: Mother(V18.0, Z83.3) Status:ActiveFamily history of bundle branch block: Sister(V17.49, Z82.49) Status:Active Unknown Family Member Name Dates Details Family history of diabetes m ellitus: Mother(V18.0, Z83.3) Status:ActiveFamily history of bundle branch block: Sister(V17.49, Z82.49) Status:Active Unknown Family Member Name Dates Details Family history of diabetes m ellitus: Mother(V18.0, Z83.3) Status:ActiveFamily history of bundle branch block: Sister(V17.49, Z82.49) Status:Active Unknown Family Member Name Dates Details Family history of diabetes m ellitus: Mother(V18.0, Z83.3) Status:ActiveFamily history of bundle branch block: Sister(V17.49, Z82.49) Status:Active Unknown Family Member Name Dates Details Family history of diabetes m ellitus: Mother(V18.0, Z83.3) Status:ActiveFamily history of bundle branch block: Sister(V17.49, Z82.49) Status:Active Unknown Family Member Name Dates Details Family history of diabetes m ellitus: Mother(V18.0, Z83.3) Status:ActiveFamily history of bundle branch block: Sister(V17.49, Z82.49) Status:Active Relationship Condition Age at Onset Recorded Date/T beatriz Not Specified No pertinent family history Unknown fatherDeceasedUnknownNot SpecifiedDeceasedUnknown Relationship Condition Age at Onset Recorded Date/T beatriz Not Specified No pertinent family history Unknown fatherDeceasedUnknownmotherDeceasedUnknown Advance Directives Advance Directive Response Recorded Date/ Time Advance Directives No June 30, 2017 11:34am Advance Directive Response Recorded Date/ Time Advance Directives No June 30, 2017 12:34pm Date ActivatedDate InactivatedComments04/23/2025 12:11 AM04/29/2025 12:45 PMDate ActivatedDate InactivatedComments02/14/2022 5:01 PM02/15/2022 5:17 PM Assessments No Assessments Information Available [...] 1 Lumbar spondylosis ( M47.816) Referral Organization [facility] Shlomo nino Referring Provider First Name Dorothy Referring Provider Last Name Rafael Referring Provider Specialty Internal Me dicine Referred Organization [facility] Referred Provider Allison Kenyon Referred Address [address] [place], [place],[address] Referred Provider Specialty Neurological Surgery Referral Priority [...] neurosurgical evaluation. He is not necessarily seeking treatmentbut rather reassurance that his back condition is stable. Aysha Parker 11/16/2022 11:18:53 AM >received today, noted above, sent P2P Aysha Parker 11/30/2022 11:14:02 AM >notes locked, and TE was sent and reviewed. closing referral at this time.Clinical NotesHe has pain w/ movement , which is aggravated by unsteadiness due to peripheral neuropathy. Chief Complaint and Reason for Visit Chief Complaint 6 Month Follow Up TBHReason for VisitAbnormal intentional weight loss ASHD (arteriosclerotic heart disease) Hypercholesterolemia Impaired fasting glucose Memory deficit Primary hypertension Chief Complaint TBH Blood PressureReason for VisitImpaired fasting glucose Lumbar spondylosis Memory deficit Primary hypertension Abnormal intentional weight loss ASHD (arteriosclerotic heart disease) Impaired fasting glucose Primary hypertension Chief Complaint Wellness Reason for Visit ASHD (arteriosclerot ic heart disease) Hypercholesterolemia Impaired fasting glucose Lumbar spondylosis Polyneuropathy Primary hypertension Medicare annual wellness visit, subsequent Screening PSA (prostate specific antigen) Chief Complaint Wellness ER follow upReason for VisitASHD (arteriosclerotic heart disease) Hypercholesterolemia Impaired fasting glucose Lumbar spondylosis Polyneuropathy Primary hypertension Medicare annual wellness visit, subsequent Screening PSA (prostate specific antigen) Chief Complaint Wellness ER follow up medication discussionReason for VisitASHD (arteriosclerotic heart disease) Hypercholesterolemia Impaired fasting glucose Lumbar spondylosis Polyneuropathy Primary hypertension Medicare annual wellness visit, subsequent Screening PSA (prostate specific antigen) Abrasion, scalp w/o infection Concussion Contusion, hip Contusion, knee ASHD (arteriosclerotic heart disease) Lumbar spondylosis Polyneuropathy Primary hypertension Chief Complaint Admit Date Surg ClearDr. Ge/Spinal Fusion February 16, 2025 1:50pm Reason for Visit Admit Date ASHD (arteriosclerotic heart disease) Ap ril 2024 1:50pm Hypercholesterolemia February 16, 2025 1: 50pm Impaired fasting glucose February 16 1:50pm Lumbar spondylosis February 16, 2025 1:5 0pm Primary hypertension February 16, 2025 1: 50pm Preop exam for internal medicine February 032024 1:50pm Chief Complaint Admit Date Usp Visit March 12, 2025 11:59p m Usp Visit March 26, 2025 11:59 pm Usp Visit April 09, 2025 11:59 pm Amb Documentation April 16, 2025 2:02 pm Usp Visit April 30, 2025 11:5 9pm Amb Documentation May 18, 2025 9:[address] [facility], testing done. May 1:49pm Chief Complaint Admit Date Usp Visit March 12, 2025 11:59p m Usp Visit March 26, 2025 11:59 pm Usp Visit April 09, 2025 11:59 pm Amb Documentation April 16, 2025 2:02 pm Usp Visit April 30, 2025 11:5 9pm Amb Documentation May 18, 2025 9:[address] [facility], testing done. May 1:49pm [facility] follow up May 29, 2025 11:3 8am Reason for Visit Admit Date Delirium May 26, 2025 1:49 pm DDD (degenerative disc disease), lumbar May 26, 2025 1:49pm ASHD (arteriosclerotic heart disease) Ju ly 2024 11:38am Delirium May 29, 2025 11:3 8am Generally unsteady May 29, 2025 11:3 8am Lumbar spondylosis with myelopathy May 29, 2025 11:38am Polyneuropathy May 29, 2025 11:3 8am Primary hypertension May 29, 2025 11: 38am Chief Complaint Admit Date [facility], testing done. May 1:49pm SN follow up May 29, 2025 11:3 8am Follow up 4 month August 20, 2025 9 :23am Reason for Visit Admit Date Delirium May 26, 2025 1:49 pm DDD (degenerative disc disease), lumbar May 26, 2025 1:49pm ASHD (arteriosclerotic heart disease) Ju ly 2024 11:38am Delirium May 29, 2025 11:3 8am Generally unsteady May 29, 2025 11:3 8am Lumbar spondylosis with myelopathy May 29, 2025 11:38am Polyneuropathy May 29, 2025 11:3 8am Primary hypertension May 29, 2025 11: 38am Bradykinesia August 20, 2025 9 :23am Delirium August 20, 2025 9 :23am DDD (degenerative disc disease), lumbar August 20, 2025 9:23am Chief Complaint Admit Date Follow up 4 [...] specific antigen ) August 31, 2025 10:21am Additional Source Comments (unrecognized sect ion and [...] section and content) DATE CREATED AUTHOR 04/23/2018 [facility] DATE CREATED AUTHOR AUTHOR'S ORGANIZ ATION 09/10/2020 [facility] DATE CREATED AUTHOR AUTHOR'S ORGANIZ ATION 12/26/2021 [facility] DATE CREATED AUTHOR AUTHOR'S ORGANIZ ATION 03/11/2023 [facility] DATE CREATED AUTHOR AUTHOR'S ORGANIZ ATION 03/11/2023 [facility] DATE CREATED AUTHOR AUTHOR'S ORGANIZ ATION 03/18/2023 [facility] DATE CREATED AUTHOR AUTHOR'S ORGANIZ ATION 06/19/2024 [facility] DATE CREATED AUTHOR AUTHOR'S ORGANIZ ATION 08/13/2024 [facility] DATE CREATED AUTHOR AUTHOR'S ORGANIZ ATION 09/26/2024 [facility] DATE CREATED AUTHOR AUTHOR'S ORGANIZ ATION 04/02/2025 [facility] DATE CREATED AUTHOR AUTHOR'S ORGANIZ ATION 04/29/2025 [facility] DATE CREATED AUTHOR AUTHOR'S ORGANIZ ATION 05/02/2025 [facility] DATE CREATED AUTHOR AUTHOR'S ORGANIZ ATION 06/18/2025 [facility] DATE CREATED AUTHOR AUTHOR'S ORGANIZ ATION 06/26/2025 [facility] DATE CREATED AUTHOR AUTHOR'S ORGANIZ ATION 07/23/2025 [facility] EPIC Care Team (unrecognized sect ion and content) Team Status: Active Member Role Status Dates Dorothy Hall DO Primary Care Provider Active Team Status: Inactive Member Role Status Dates Dorothy Hall DO Primary Care Provider Active Start: May 26, 2025 End: May 26dorothea Paez DOAttending ProviderActiveStart: May 26, 2025 End: May 26, 2025 Team Status: Inactive Member Role Status Teresa Hall DO Primary Care Provider Active Start: May 29, 2025 End: May 29Lynnette Sheppard ProviderActiveStart: May 29, 2025 End: May 29, 2025 Team Status: Active Member Role Status Teresa Hall DO Primary Care Provider Active Start: June 18, 2025 Marisol Connors MDAttmadan ProviderActiveStart: June 18, 2025 Team Status: Inactive Member Role Status Teresa Hall DO Primary Care Provider Active Start: August 20, 2025 End: August 20Lynnette Nam ProviderActiveStart: August 20, 2025 End: August 20, 2025 Team Status: Active Member Role Status Teresa Hall DO Primary Care Provide r, Attending Provider Active Start: January 26, 2025 Team Status: Inactive Member Role Status Teresa Hall DO Primary Care Provide r, Attending Provider Active Start: February 16, 2025 End: February 16, 2025 Team Status: Inactive Member Role Status Teresa Hall DO Primary Care Provide r, Attending Provider Active Start: April 28, 2024 End: April 28, 2024 Team Status: Active Member Role Status Teresa Hall DO Primary Care Provide r, Attending Provider Active Start: December 24, 2023 Team Status: Inactive Member Role Status Teresa Hall DO Primary Care Provide r, Attending Provider Active Start: December 31, 2023 End: December 31, 2023 Team Status: Inactive Member Role Status Teresa Hall DO Primary Care Provide r, Attending Provider Active Start: January 18, 2024 End: January 18, 2024Team MemberRelationshipSpecialtyStart DateEnd Date Dorothy Hall DO [address] [place] [address] [address] [facility] [place] [address] PCP - GeneralInternal Medicine11/14/23 Team Status: Inactive Member Role Status Teresa Hall DO Attending Provider Active Sta rt: October 23, 2023 End: October 23, 2023 Team Status: Active Member Role Status Teresa Hall DO Primary Care Provide r, Attending Provider Active Start: April 29, 2024 Team Status: Inactive Member Role Status Dates Dorothy Hall DO Primary Care Provide r, Attending Provider Active Start: May 07, 2024 End: May 07, 2024 Team Status: Inactive Member Role Status Dates Dorothy Hall DO Primary Care Provide r, Attending Provider Active Start: June 13, 2024 End: June 13, 2024Team MemberRelationshipSpecialtyStart DateEnd Date Dorothy Hall MD [address] [facility] [place] [id number] PCP - GeneralInternal Medicine02/25/24Team MemberRelationshipSpecialtyStart Date End Date Dorothy Hall MD [address] [facility] [place] [address] PCP - GeneralInternal Medicine02/25/24Team MemberRelationshipSpecialtyStart Date End Date Dorothy Hall MD [address] [facility] [place] [address] PCP - GeneralInternal Medicine02/25/24Team MemberRelationshipSpecialtyStart Date End Date Dorothy Hall MD [address] [facility] [place] [address] PCP - GeneralInternal Medicine02/25/24Team MemberRelationshipSpecialtyStart Date End Date Dorothy Hall MD [address] [facility] [place] [address] PCP - GeneralInternal Medicine02/25/24Team MemberRelationshipSpecialtyStart Date End Date Dorothy Hall MD [address] [facility] [place] [address] PCP - GeneralInternal Medicine02/25/24Team MemberRelationshipSpecialtyStart Date End Date Dorothy Hall MD [address] [facility] [place] [address] PCP - GeneralInternal Medicine02/25/24Team MemberRelationshipSpecialtyStart Date End Date Dorothy Hall MD [address] [facility] [place] [phone] PCP - GeneralInternal Medicine02/25/24Team MemberRelationshipSpecialtyStart Date End Date Dorothy Hall MD [address] [facility] [place] [address] PCP - GeneralInternal Medicine02/25/24Team MemberRelationshipSpecialtyStart Date End Date Dorothy Hall MD [address] [facility] [place] [address] PCP - GeneralInternal Medicine02/25/24Team MemberRelationshipSpecialtyStart Date End Date Dorothy Hall DO PCP - GeneralInternal Medicine11/14/23Team MemberRelationshipSpecialtyStart Date End Date Dorothy Hall MD [address] [facility] [place] [address] PCP - GeneralInternal Medicine02/25/24Team MemberRelationshipSpecialtyStart Date End Date Dorothy Hall MD [address] [facility] [place] [address] PCP - GeneralInternal Medicine02/25/24Team MemberRelationshipSpecialtyStart Date End Date Dorothy Hall MD [address] [facility] [place] [address] PCP - GeneralInternal Medicine02/25/24Team MemberRelationshipSpecialtyStart Date End Date Dorothy Hall MD [address] [facility] [place] [address] PCP - GeneralInternal Medicine02/25/24Team MemberRelationshipSpecialtyStart Date End Date Dorothy Hall MD [address] [facility] [place] [address] PCP - GeneralInternal Medicine02/25/24Team MemberRelationshipSpecialtyStart Date End Date Dorothy Hall MD [address] [facility] [place] [address] PCP - GeneralInternal Medicine02/25/24Team MemberRelationshipSpecialtyStart Date End Date Dorothy Hall MD [address] [facility] [place] [address] PCP - GeneralInternal Medicine02/25/24Team MemberRelationshipSpecialtyStart Date End Date Dorothy Hall MD [address] [facility] [place] [address] PCP - GeneralInternal Medicine02/25/24Team MemberRelationshipSpecialtyStart Date End Date Dorothy Hall MD [address] [facility] [place] [address] PCP - GeneralInternal Medicine02/25/24Team MemberRelationshipSpecialtyStart Date End Date Dorothy Hall MD [address] [place] [address] PCP - GeneralInternal Medicine02/25/24Team MemberRelationshipSpecialtyStart Date End Date Dorothy Hall MD [address] [facility] [place] [address] PCP - GeneralInternal Medicine02/25/24Team MemberRelationshipSpecialtyStart Date End Date Dorothy Hall DO PCP - GeneralInternal Medicine11/14/23 Anita Schmid MD [address] [place] [address] [address] [place] [address] Referring Physician01/28/25Team MemberRelationshipSpecialtyStart DateEnd Date Dorothy Hall DO [address] [place] [address] PCP - GeneralInternal Medicine01/27/22Team MemberRelationshipSpecialtyStart Date End Date Dorothy Hall DO PCP - GeneralInternal Medicine02/25/24 Team Status: Active Member Role Status Dates Dorothy Hall DO Primary Care Provider Active Start: March 12, 2025 Dorothy Hall DOAttmadan ProviderActiveStart: March 12, 2025 Team Status: Active Member Role Status Dates Dorothy Hall DO Primary Care Provider Active Start: March 26, 2025 Dorothy Ball , DOAttending ProviderActiveStart: March 26, 2025 Team Status: Active Member Role Status Dates Dorothy Hall , Primary Care Provider Active Start: April 09, 2025 Dorothy Hall , DOAttending ProviderActiveStart: April 09, 2025 Team Status: Active Member Role Status Dates Dorothy Hall , Primary Care Provider Active Start: April 16, 2025 Jillian Jones , CMAAttending ProviderActiveStart: April 16, 2025 Team Status: Active Member Role Status Dates Dorothy Hall , Primary Care Provider Active Start: April 20, 2025 Haseeb Meehan , DOAttending ProviderActiveStart: April 20, 2025 Team Status: Active Member Role Status Dates Dorothy Hall , Primary Care Provider Active Start: April 21, 2025 Vinny Porter , MDAttending ProviderActiveStart: April 21, 2025 Team Status: Active Member Role Status Dates Dorothy Hall , Primary Care Provider Active Start: April 22, 2025 Objovanni Porter , MDAttending ProviderActiveStart: April 22, 2025 Team Status: Active Member Role Status Dates Dorothy Hall , Primary Care Provider Active Start: April 30, 2025 Dorothy Hall , DOAttending ProviderActiveStart: April 30, 2025 Team Status: Active Member Role Status Dates Dorothy Hlal , Primary Care Provider Active Start: May 18, 2025 Jillian Jones , CMAAttending ProviderActiveStart: May 18, 2025 Team MemberRelationshipSpecialtyStart DateEnd Date Rafael Dorothy DO [place] [address] [place] [address] PCP - GeneralInternal Medicine06/01/25Team MemberRelationshipSpecialtyStart Date End Date Dorothy Hall DO [address] [place] [phone] PCP - GeneralInternal Medicine06/01/25Team MemberRelationshipSpecialtyStart Date End Date Dorothy Hall DO [address] [place] [address] PCP - GeneralInternal Medicine06/17/25 Anita Schmid MD Referring Physician01/28/25Team MemberRelationshipSpecialtyStart DateEnd Date Dorothy Hall DO [address] [place] [address] PCP - GeneralInternal Medicine06/01/25Team MemberRelationshipSpecialtyStart Date End Date Dorothy Hall DO [address] [place] [phone] PCP - GeneralInternal Medicine06/01/25 Team Status: Active Member Role/Relationship Status Dates Dorothy Hall DO Primary Care Provider Active Team Status: Active Member Role/Relationship Status Dates Dorothy Hall DO Primary Care Provider Active Start: June 18, 2025 Brii Pate ProviderActiveStart: June 18, 2025 Team Status: Inactive Member Role/Relationship Status Dates Dorothy Hall DO Primary Care Provider Active Start: August 20, 2025 End: August 20Lynnette Nam ProviderActiveStart: August 20, 2025 End: August 20, 2025 Team Status: Inactive Member Role/Relationship Status Dates Dorothy Hall DO Primary Care Provider Active Start: August 31, 2025 End: August 31enLynnette Ayala ProviderActiveStart: August 31, 2025 End: August 31, 2025 REASON FOR VISIT (unrecogniz ed section and content) ReasonCommentsFollow-up6 monthReasonCommentsFollow-up6 monthsSpecialtyDiagnoses / ProceduresReferred By ContactReferred To ContactCardiology Diagnoses Arteriosclerosis of coronary artery Procedures Follow Up In Cardiology Marisol Connors MD [address] [place] [address] Marisol Connors MD [address] [place] [address] Referral IDStatusReasonStart DateExpiration DateVisits RequestedVisits [id number] DateCommentsDentist 07/08/2024easonCommentsPainReasonCommentsPre-op ClearanceLumbar fusion-Dr. Mcdonald-Scheduled 02/24SpecialtyDiagnoses / ProceduresReferred By ContactReferred To Contact Diagnoses Arteriosclerosis of coronary artery Pre-operative cardiovascular examination Procedures ECG 12 Lead Marisol Connors MD [address] [place] [address] Phone: tel: fax: Referral IDStatusReasonStart DateExpiration DateVisits RequestedVisits [id number] DateCommentsNeeds Premed for dental appt05/01/2025ReasonCommentsPainReasonCommentsFollow-up6 month, coronary artery diseaseSpecialtyDiagnoses / ProceduresReferred By Contact Referred To ContactCardiology Diagnoses Arteriosclerosis of coronary artery Procedures Follow Up In Cardiology Marisol Connors MD [address] [place] [address] Phone: tel: fax: Marisol Connors MD [address] [address], [place] [address] Phone: tel: fax: Referral IDStatusReasonStart DateExpiration DateVisits RequestedVisits [id number] Goals (unrecognized section and content) Goals may be documented in a n alternate section Scheduled Active and Recently Administ ered Medications (unrecognized section and content) Medication Order04/27//// allopurinoL (ZYLOPRIM) tablet 300 mg 300 mg, oral, Daily, First dose on Sun04/23/25 at 0900, Look-alike/sound-alike medication - verify indication for use. * 1102 (Given - Provider: Uri Valenzuela RN) * 0810 (Given - Provider: Uri Valenzuela RN) * 0823 (Given - Provider: Jeimy Brooks, RN) amLODIPine (NORVASC) tablet 5 mg 5 mg, oral, Daily, First dose on Sun04/23/25 at 0900, Look-alike/sound-alike medication - verify indication for use. Avoid grapefruit juice. * 1101 (Given - Provider: Uri Valenzuela RN) * 0809 (Given - Provider: Uri Valenzuela RN) * 0822 (Given - Provider: Jeimy Brooks, RN) aspirin EC tablet 81 mg 81 mg, oral, 2 times daily, First dose on Sun04/23/25 at 0200, Do not crush or chew. * 1101 (Given - Provider: Uri Valenzuela RN) * 2108 (Given - Provider: Zenaida Theodore) * 0809 (Given - Provider: Uri Valenzuela, DICK) * 2108 (Given - Provider: Zenaida Theodore) * 0822 (Given - Provider: Jeimy Brooks, RN) atorvastatin (LIPITOR) tablet 40 mg 40 mg, oral, Daily, First dose on Sun04/23/25 at 0900, Look-alike/sound-alike medication - verify indication for use. * 1100 (Given - Provider: Uri Valenzuela RN) * 0809 (Given - Provider: Uri Valenzuela RN) * 0823 (Given - Provider: Jeimy Brooks, DICK) calcium carbonate-vitamin D3 (OSCAL 500 + D) 500 mg (1,250 mg) - 200 units per tablet 1 tablet 1 tablet, oral, 2 times daily with meals, First dose on Sun04/23/25 at 0800, Look-alike/sound-alikemedication - verify indication for use. Vit D3 200 IU = 5 mcg. * 1102 (Given - Provider: Uri Valenzuela RN) * 1620 (Given - Provider: Uri Valenzuela RN) * 0810 (Given - Provider: Uri Valenzuela RN) * 1712 (Given - Provider: Uri Valenzuela, DICK) * 0823 (Given - Provider: Jeimy Brooks, RN) cyanocobalamin tablet 1,000 mcg 1,000 mcg, oral, Daily, First dose on [place] 04/23/25 at 0900 * 1103 (Given - Provider: Uri Valenzuela RN) * 0809 (Given - Provider: Uri Valenzuela, DICK) * 0823 (Given - Provider: Jeimy Brooks, RN) famotidine (PEPCID) tablet 20 mg 20 mg, oral, Every 12 hours, First dose on [place] 04/23/25 at 0015, Pharmacy to adjust dose per renal function * 1101 (Given - Provider: Uri Valenzuela RN) * 2108 (Given - Provider: Zenaida Theodore) * 0810 (Given - Provider: Uri Valenzuela RN) * 2108 (Given - Provider: Zenaida Theodore) * 0823 (Given - Provider: Jeimy Brooks, DICK) heparin (porcine) injection 5,000 Units 5,000 Units, subcutaneous, Every 12 hours scheduled, First dose on [place] 04/23/25 at 0015, Notify prescriber if INR greater than 1.9, hemoglobin less than 10 mg/dL, aPTT greater than 40 seconds, and/or platelet count less than 100,000/mm Look-alike/sound-alike medication - verify indication for use. Observe for bleeding. * 1112 (Given - Provider: Uri Valenzuela RN) * 2108 (Given - Provider: Zenaida Theodore) * 0814 (Given - Provider: Uri Valenzuela RN) * 2108 (Given - Provider: Zenaida Theodore) * 0822 (Given - Provider: Jeimy Brooks, DICK) hydroCHLOROthiazide (HYDRODIURIL) tablet 25 mg 25 mg, oral, Daily, First dose on [place] 04/23/25 at 0900, Look-alike/sound-alike medication - verify indication for use. * 1102 (Given - Provider: Uri Valenzuela, DICK) * 0809 (Given - Provider: Uri Valenzuela, DICK) * 0822 (Given - Provider: Jeimy Brooks, DICK) melatonin (CIRCADIN) tablet 5 mg 5 mg, oral, Nightly, First dose on [place] 04/23/25 at 0200 * 210 (Given - Provider: Zenaida Theodore) * 2108 (Given - Provider: Zenaida Theodore) potassium chloride (K-TAB,KLOR-CON) CR tablet 20 mEq 20 mEq, oral, 2 times daily, First dose on [place] 04/23/25 at 0200, Do not crush or chew. * 1101 (Given - Provider: Uri Valenzuela, DICK) * 2108 (Given - Provider: Zenaida Theodore) * 0810 (Given - Provider: Uri Valenzuela, DICK) * 210 (Given - Provider: Zenaida Theodore) * 0822 (Given - Provider: Jeimy Brooks, DICK) sodium chloride 0.9 % flush 3 mL 3 mL, intravenous, Every 12 hours scheduled, First dose on [place] 04/23/25 at 0015 * 1122 (Given - Provider: Uri aVlenzuela RN) * 210 (Given - Provider: Zenaida Theodore) * 0817 (Given - Provider: Uri Valenzuela, DICK) * 210 (Given - Provider: Zenaida Theodore) * 0822 (Given - Provider: Jeimy Brooks, DICK) Medication Order04/27//// acetaminophen (TYLENOL) tablet 650 mg 650 mg, oral, Every 4 hours PRN, Temperature greater than 38.3 C, Starting on Sun04/23/25 at 0009, [Warning: Total Acetaminophen not to exceed more than 4 grams (4000 mg) in 24 hours] * 2108 (Given - Provider: Zenaida Theodore) * 0951 (Given - Provider: Uri Valenzuela, DICK) * 1408 (Given - Provider: Uri Valenzuela, DICK) * 0823 (Given - Provider: Jeimy Brooks, DICK) alum-mag hydroxide-simeth (MAALOX) 200-200-20 mg/5 mL suspension 30 mL 30 mL, oral, 4 times daily after meals and at bedtime as needed, dyspepsia, Starting on Sun04/23/25at 0009, Look-alike/sound-alike medication - verify indication for use. Jer blanco., Indications: dyspepsia barium sulfate (VARIBAR HONEY) 40 [...] glucose less than 70 mg/dL, Starting on Sun04/23/25 at 0009, If patient conscious and taking PO. If blood glucose is not greater than 70 mg/dL after initial treatment, repeat treatment. dextrose 50 % in water (D50W) 50% solution 25 mL 25 mL, intravenous, As needed, low blood sugar, blood glucose less than 70 mg/dL and unconscious orNPO with IV access, Starting on Sun04/23/25 at [...] not available. If NPO, initiate IV 5% Dextr ose/Water at 100 mL/hr and contact prescriber for [...] complete. With each magnesium result continue the replacementorders as needed. magnesium sulfate IVPB 4000 mg/100 mL in iso-osmotic water (40 mg/mL premix) 4,000 mg, intravenous, at 25 mL/hr, Administer over 240 Minutes, As needed, Magnesium level 1.6 mg/dL or less, or Ionized Magnesium level 0.44 mmol/L or less, Starting on Sun04/27/25 at 0845, Recheckmagnesium level 4 hours after infusion complete. With [...] Supplementation, Starting on Sun04/27/25 at 0845, Progress tooral potassium replacement when patient tolerating oral intake. [...] greater=50 mEq. Do not crush or chew. * 1120 (Given - Provider: Uri Valenzuela RN) potassium chloride (KAYCIEL) 20 mEq/15 mL solution 30-50 mEq(Linked Group 1) 30-50 mEq, oral, As needed, Potassium Supplementation, Starting on Sun04/27/25 at 0845, Progress tooral potassium replacement when patient tolerating oral intake. [...] after per policy and monitor potassium levels * 1120 (See Alternative - Provider: Uri Valenzuela [...] mEq over a minimum of 1 hour. * 1120 (See Alternative - Provider: Uri Valenzuela RN) QUEtiapine (SEROquel) tablet 25 mg 25 mg, oral, Nightly PRN, , Starting on Sun04/23/25 at 2330, Look-alike/sound-alike medication - verify indication for use. * 2107 (Given - Provider: Zenaida Theodore) * 2107 (Given - Provider: Zenaida Theodore) sennosides-docusate sodium (SENOKOT-S) 8.6-50 mg 1 tablet 1 tablet, oral, Every 12 hours PRN, constipation, Starting on [place] 04/23/25 at 0009 sodium chloride 0.9 % flush 3 mL 3 mL, intravenous, As needed, line care, before and after each intermittent use, Starting on [place] 04/23/25 at 0009 sodium chloride 0.9 % flush bag 25 mL, intravenous, at 100 mL/hr, Administer over 15 Minutes, As needed, line care, line care afterIVPB administration, Starting on [place] 04/23/25 at 0009 Order Group 1: potassium chloride (K-TAB,KLOR-CON) CR tablet 30-50 mEqJump to med 30-50 mEq, oral, As needed, Potassium Supplementation, Starting on Sun04/27/25 at 0845, Progress tooral potassium replacement when patient tolerating oral intake. [...] Supplementation, Starting on Sun04/27/25 at 0845, Progress tooral potassium replacement when patient tolerating oral intake. [...] BE BASED ON THE PRIMARY CLINICAL RECORDS. [facility] [employer] provides no warranty or guarantee of the accuracy or completeness of information in this document.
[2025-09-02 09:36] LABS: Hematocrit 45.9 % (42.0-54.0); Hemoglobin 14.8 g/dL (14.0-18.0); Immature Granulocytes Abs Auto 0.03 10^3/uL (0.00-0.03); Immature Granulocytes Pct Auto 0.5 % (0.0-0.5); Lymphocytes Absolute Auto 1.3 10^3/uL (1.2-3.8); Mean Corpuscular HGB Conc 32.2 g/dL (29.9-35.2); Mean Corpuscular Hemoglobin 29.2 pg (25.9-34.0); Mean Corpuscular Volume 90.5 fL (80.0-94.0); Platelet Count 235 10^3/uL (150-450); Red Blood Count 5.07 10^6/uL (4.70-6.10); White Blood Count 6.1 10^3/uL (4.0-11.0)
[2025-09-02 10:17] LABS: Alanine Aminotransferase 24 U/L (16-63); Albumin Globulin Ratio 1.1; Albumin Level 3.6 g/dL (3.4-5.0); Alkaline Phosphatase 121 U/L (46-116); Anion Gap 11.9; Aspartate Amino Transferase 16 U/L (15-37); Blood Urea Nitrogen 18.0 mg/dL (7.0-18.0); Calcium 9.6 mg/dL (8.5-10.1); Carbon Dioxide 28.3 mmol/L (21.0-32.0); Chloride 105 mmol/L (98-107); Cholesterol 133 mg/dL (<=200); Estimated GFR (African America >60 (>=60 mL/min/1.73m^2); Estimated GFR (Non-African Ame >60 (>=60 mL/min/1.73m^2); Globulin 3.4 g/dL; Glucose 111 mg/dL (74-106); HDL Cholesterol 54 mg/dL (40-60); Potassium 4.2 mmol/L (3.5-5.1); Sodium 141 mmol/L (136-145); Total Protein 7.0 g/dL (6.4-8.2); Triglycerides 53 mg/dL (<=150); VLDL CHOLESTEROL 10.6 mg/dL
== END 2025-09-02 08:56 | disposition home or self-care (01) ==
LOC: LAB 09:00
PROVIDERS: PCP Internal Medicine; Visit Provider Internal Medicine
DX: R73.01 Impaired fasting glucose (principal); E78.00 Pure hypercholesterolemia, unspecified; I10 Essential (primary) hypertension; Z12.5 Encounter for screening for malignant neoplasm of prostate
CPT/HCPCS: 36415; 80053; 80061; 83036; 85025; G0103